=== PATIENT | female | born 1965 | race Caucasian/White ===

== ENCOUNTER 2016-11-20 12:42 | Observation (INO) ==
--- OUTSIDE RECORDS SUMMARY | 2016-11-20 13:05 | External Medical Summary | Clinical Summary ---
:1965 Author Organization [facility] [employer] [employer] Address [address] [address] Phone Allergies, Adverse Reactions, Alerts Allergy Name Reaction Description Start Date Severity Status Provider NKDA Critical Active Indigo Yonickieum DRUM DRIER OPERATOR NKDA Critical No Longer Indigo Yokum DRUM DRIER OPERATOR Active NKDA Critical Inactive Adrianna Elder Conditions or Problems Problem Name Problem Onset Status Entry Provider Comment Standard Annotate Code Date Date Description ABNORMAL 626.9 Resolved Maite Gutierrez Unspecified VAGINAL Laura ONEAL disorders of BLEEDING PhD menstruation and other abnormal bleeding from female genital tract DEPRESSION, 296.33 Active Joseph Pineda Major ACUTE, Farooq CORDERO depressive RECURRENT disorder, recurrent episode, severe degree, without mention of psychotic behavior SCABIES 133.0 Resolved Maite Gutierrez Scabies 06/23 Laura ONEAL PhD HYPERTENSION 401.9 Active Joseph Pineda Unspecified 05/24 Farooq DO essential hypertension FATIGUE 780.79 Resolved Indigo Other malaise 05/24 07/02 Yokum DRUM DRIER OPERATOR and fatigue SLEEP APNEA, 327.23 Active Joseph Pineda Obstructive OBSTRUCTIVE, 06/27 06/27 Farooq DO sleep apnea MILD (adult) (pediatric) OVERWEIGHT 278.02 Inactive Joseph Pineda Overweight 06/28 06/28 Farooq DO Obesity 278.00 Active Indigo Obesity, 06/28 10/18 Yokum DRUM DRIER OPERATOR unspecified OTH GENERAL V70.3 Resolved Maite Gutierrez Other general MEDICAL Laura ONEAL medical EXAMINATION PhD examination for ADMIN PURPOSES administrative purposes OTHER ABNORMAL 790.29 Resolved Maite C Other abnormal GLUCOSE 05/20 Laura ONEAL glucose PhD ACUTE 466.0 Resolved Maite C Acute BRONCHITIS 09/02 Laura ONEAL bronchitis PhD DEPENDENT 782.3 Resolved Indigo Edema EDEMA, LEGS, 10/29 10/18 Yokum DRUM DRIER OPERATOR BILATERAL HYPOKALEMIA, 276.8 Resolved Indigo Hypopotassemia MILD 10/29 07/02 Youm DRUM DRIER OPERATOR Diabetes, Type 250.00 Inactive Joseph Pineda Diabetes 2 06/27 06/27 Farooq DO mellitus without mention of complication, type II or unspecified type, not stated as uncontrolled Diabetes 250.02 Resolved Indigo Diabetes mellitus, type 06/27 DRUM DRIER OPERATOR mellitus II, without mention uncontrolled of complication, type II or unspecified type, uncontrolled Health V70.0 Active Joseph Pineda Routine general screening 01/17 01/17 Farooq DO medical examination at a health care facility Sinusitis, 461.1 Resolved Ismael Coyne Acute frontal frontal, acute 012/26 Amandeep sinusitis Laryngitis, 464.00 Resolved Ismael Coyne Acute acute 12/26 Amandeep laryngitis without mention of obstruction Binge eating 307.51 Active Joseph Pineda Bulimia nervosa disorder 08/15 08/15 Farooq DO Routine V72.31 Resolved Indigo Routine gynecological 12/14 07/02 Yo DRUM DRIER OPERATOR gynecological examination examination Postmenopausal 627.1 Resolved Indigo Postmenopausal bleeding 12/14 DRUM DRIER OPERATOR bleeding Screening for V76.51 Resolved Indigo Screening for malignant 12/26 07/02 Yokum DRUM DRIER OPERATOR malignant neoplasms of neoplasms of colon colon Insomnia, 307.42 Active Indigo 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 DRUM DRIER OPERATOR disorder of initiating or maintaining sleep Establish care V68.89 Resolved Indigo Encounters for or get 01/16 07/02 Yo DRUM DRIER OPERATOR other specified acquainted administrative visit purpose Weakness, left 342.90 Resolved Indigo Hemiplegia, side of body 06/20 10/18 Yokum DRUM DRIER OPERATOR unspecified, affecting unspecified side TIA 435.9 Active Indigo Unspecified 06/20 07/02 Yokum DRUM DRIER OPERATOR transient cerebral ischemia Knee pain, 719.46 Active Indigo Pain in joint bilateral 06/20 10/18 Yokum DRUM DRIER OPERATOR involving lower leg Bronchitis 490 Resolved Indigo Bronchitis, not 07/23 10/18 Yokum DRUM DRIER OPERATOR specified as acute or chronic Diabetes 357.2 Active Maliheh Polyneuropathy mellitus, 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GARMENT INSPECTOR 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y Knee pain, 719.46 Active Indigo Pain in joint right 06/20 10/18 Yokum DRUM DRIER OPERATOR involving lower leg Jesi 112.3 Active Indigo Candidiasis of intertrigo 10/09 10/18 Yokum DRUM DRIER OPERATOR skin and nails Hyperlipidemia 272.4 Active Anne Other and 12/24 12/24 Neil unspecified RMA hyperlipidemia Incontinence, 788.33 Active Indigo Mixed mixed, 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 DRUM DRIER OPERATOR incontinence urge/stress (female) (male) Female stress 625.6 Active Yury AnthonyCarlos Enrique Stress incontinence 01/03 01/03 Cy patel MD female ABNORMAL VAGINAL ICD-626.9 Inactive Maite Sanchez BLEEDING PhD SCABIES ICD-133.0 Inactive Maite Sanchez PhD FATIGUE ICD-780.79 Inactive Indigo Yokum DRUM DRIER OPERATOR OTH GENERAL ICD-V70.3 Inactive Maite Sanchez MEDICAL PhD EXAMINATION ADMIN PURPOSES OTHER ABNORMAL ICD-790.29 Inactive Maite Sanchez GLUCOSE PhD ACUTE BRONCHITIS ICD-466.0 Inactive Maite Matt Sanchez PhD DEPENDENT EDEMA, ICD-782.3 Inactive Indigo Yokum LEGS, BILATERAL DRUM DRIER OPERATOR HYPOKALEMIA, MILD ICD-276.8 Inactive Indigo Yokum DRUM DRIER OPERATOR Diabetes mellitus, ICD-250.02 Inactive Indigo Yokum type II, DRUM DRIER OPERATOR uncontrolled Sinusitis, ICD-461.1 Inactive Ismael Coyne frontal, acute Amandeep ONEAL Laryngitis, acute ICD-464.00 Inactive Ismael Coyne Amandeep ONEAL Routine ICD-V72.31 Inactive Indigo Yokum gynecological DRUM DRIER OPERATOR examination Postmenopausal ICD-627.1 Inactive Indigo Yokum 2015 bleeding DRUM DRIER OPERATOR Screening for ICD-V76.51 Inactive Indigo Yokum 2015 malignant DRUM DRIER OPERATOR neoplasms of colon Establish care or ICD-V68.89 Inactive Indigo Yokum get acquainted DRUM DRIER OPERATOR visit Weakness, left ICD-342.90 Inactive Indigo Yokum side of body DRUM DRIER OPERATOR Bronchitis ICD-490 Inactive Indigo Yokum DRUM DRIER OPERATOR Medication List Medication Instructions Start Stop Generic NDC Status Provider Patient Date Date Name Instruction METFORMIN 2 tablets METFORMIN 60643782172 No Indigo Active HCL 500 MG by mouth HCL Longer Yokum TB24 twice Active DRUM DRIER OPERATOR daily AMARYL 1 MG 1 tablet GLIMEPIRID 67482753411 No Indigo Active ORAL TABS orally E Longer Yokum twice Active DRUM DRIER OPERATOR daily NYSTATIN apply to NYSTATIN 42017666849 Active Indigo Active 160660 rash TID Yokum UNIT/GM PRN DRUM DRIER OPERATOR CREA TROKENDI XR 2 tab TOPIRAMATE 91324828375 Active Malihe Active 100 MG ORAL daily h [id number] Ziglar i GARMENT INSPECTOR METOPROLOL 1 tab po METOPROLOL 47716843327 Active Indigo Active TARTRATE 25 bid TARTRATE Yokum MG TABS DRUM DRIER OPERATOR AZITHROMYCI 2 po qd x AZITHROMYC 83234547068 No Jillin Active N 250 MG 1 day, IN Longer a TABS then 1 po Active Frazel qd x 4 l DRUM DRIER OPERATOR days PREDNISONE 2 pills PREDNISONE 56815978807 No Jillin Active 20 MG TAB daily x 4 Longer a days Active Frazel l DRUM DRIER OPERATOR PIOGLITAZON take one PIOGLITAZO 40425432343 Active Malihe Active E HCL 30 MG a day NE HCL h ORAL TABS Ziglar i GARMENT INSPECTOR JANUVIA 100 1 tablet SITAGLIPTI 38038481055 No Indigo Active MG TABS by mouth N Longer Yokum daily PHOSPHATE Active DRUM DRIER OPERATOR ATORVASTATI 1 pill by ATORVASTAT 85343702326 Active Indigo Active N CALCIUM mouth IN CALCIUM Yokum 10 MG TABS nightly, DRUM DRIER OPERATOR for cholester ol ASPIRIN 81 1 po qd ASPIRIN 73660635961 Active Indigo Active MG ORAL Yokum TABS DRUM DRIER OPERATOR NITROFURANT One NITROFURAN 72050029706 No Indigo Active OIN MONOHYD capsule TOIN Longer Yokum MACRO 100 BID for MONOHYD Active DRUM DRIER OPERATOR MG CAPS UTI MACRO TRAMADOL 1/2 po TRAMADOL 41766202751 No Jillin Active HCL 50 MG tid with HCL Longer a TABS ES Active Frazel Tylenol l DRUM DRIER OPERATOR prn pain VYVANSE 20 1 tablet LISDEXAMFE 28428581310 No Jillin Active MG ORAL daily for TAMINE Longer a CAPS binge DIMESYLATE Active Frazel eating l DRUM DRIER OPERATOR disorder LASIX 20 MG 2 tablet FUROSEMIDE 61067744009 Active Indigo Active TAB by mouth Yokum daily DRUM DRIER OPERATOR CELEBREX 1 tablet CELECOXIB 39767469055 Active Indigo Active 200 MG CAPS by mouth Yokum daily DRUM DRIER OPERATOR with meals PREDNISONE 2 tablets PREDNISONE 49290571377 No Joseph Active 20 MG TAB today, Longer W Farooq then 1 Active DO tablet days 2-4 DIFLUCAN 1 tablet FLUCONAZOL 59619516384 No Joseph Active 100 MG TAB by mouth E Longer W [place] daily x 3 Active DO days DIFLUCAN 1 tablet FLUCONAZOL 61898657367 No Joseph Active 100 MG TABS by mouth E Longer W [place] every Active DO other day for 2 doses ZOFRAN 4 MG 1 po q6hr ONDANSETRO 17049723140 Active Joseph Active TABS PRN N HCL W Farooq Nausea DO PREDNISONE 2 tabs PREDNISONE 58502368223 No Joseph Active 20 MG TAB daily for Longer W [place] 3 days, 1 Active DO tab daily for 3 days, 1/2 tab daily for 2 days AMOXICILLIN 2 po BID AMOXICILLI 53940213914 No Maite C Active 500 MG CAPS x 10 days N Longer Madril Active PhD LISINOPRIL 1 tablet LISINOPRIL 33950592141 No Maite C Active 20 MG TABS by mouth Longer Madril daily Active PhD POTASSIUM 2 capsule POTASSIUM 84821358195 No Joseph Active CHLORIDE CR by mouth CHLORIDE Longer W [place]oo[place] 10 MEQ CPCR daily Active DO SPIRONOLACT 1 tablet SPIRONOLAC 61280366560 No Joseph Active ONE 25 MG by mouth TONE Longer W [place] TAB daily Active DO METFORMIN 1 tablet METFORMIN 45443233365 No Joseph Active HCL 500 MG by mouth HCL Longer W [place] TABS twice Active DO daily AMARYL 1 MG 1 tab GLIMEPIRID 09301254488 No Joseph Active TABS twice E Longer W [place] daily Active DO PHENTERMINE 1 po q am PHENTERMIN 56595247105 No Joseph Active HCL 37.5 MG for wt. E HCL Longer W [place] TABS loss Active DO PROMETHAZIN 1 tab by PROMETHAZI 39100552040 No Joseph Active E HCL 25 MG mouth NE HCL Longer W [place] TABS every 6 Active DO hours as needed CIPROFLOXAC Take one CIPROFLOXA 43265449826 No Joseph Active IN HCL 500 (1) DELORES HCL Longer W Farooq MG TABS tablet by Active DO mouth twice a day ABILIFY 5 one p.o. ARIPIPRAZO 44982361753 No Joseph Active MG TABS q. day LE Longer W Farooq Active DO HYDROCHLORO 2 tabs HYDROCHLOR 33633685601 No Joseph Active THIAZIDE 25 every OTHIAZIDE Longer W Farooq MG TABS morning Active DO ABILIFY 2 1 po q hs ARIPIPRAZO 72600971629 No Joseph Active MG TABS for major LE Longer W [place]ooq depressio Active DO n ADIPEX-P 1/2 tab PHENTERMIN 90036925414 No Casey Active 37.5 MG po q am E HCL Longer Leonarda CAPS for Active PA weight loss CIPRO 500 1 tablet CIPROFLOXA 27062308355 No Casey Active MG TAB by mouth DELORES HCL Longer [place] twice Active PA daily NECON 1/35 1 po NORETHINDR 80686692626 No Casey Active (28) 1-35 daily ONE-ETH Longer [place] MG-MCG TABS ESTRADIOL Active PA TRAMADOL 1 po tid TRAMADOL 91402245414 No Casey Active HCL 50 MG with ES HCL Longer [place] TABS Tylenol Active PA FLUCONAZOLE one p.o. FLUCONAZOL 44369642176 No Casey Active 100 MG TABS q. day 2 E Longer [place] days Active PA POTASSIUM 1 capsule POTASSIUM 43307778386 No Casey Active CHLORIDE CR by mouth CHLORIDE Longer 10 MEQ CPCR daily Active PA IMIPRAMINE Take 6 IMIPRAMINE 21968366241 Active Indigo Active HCL 50 MG tablets HCL Yokum TABS by mouth DRUM DRIER OPERATOR at bedtime DIFLUCAN 1 tablet FLUCONAZOL 78187354087 No Joseph Active 100 MG TAB by mouth E Longer W [place] daily Active DO VERAPAMIL 2 po bid VERAPAMIL 10517155483 Active Indigo Active HCL CR 120 HCL Yokum MG TAB CR DRUM DRIER OPERATOR PERMETHRIN apply PERMETHRIN 20407443986 No Joseph Active 5 % CREA neck to Longer W [place] toes Active DO tonight and then rinse off in morning. repeat at 7 days SEROQUEL XR one p.o. QUETIAPINE 85934082754 No Joseph Active 50 MG q. FUMARATE Longer W [place] [id number] evening Active DO TRAMADOL 1-2 TRAMADOL 43990383603 No Joseph Active HCL 50 MG tablets HCL Longer W [place] TABS every 6-8 Active DO hours as needed for pain ALPRAZOLAM one p.o. ALPRAZOLAM 86129693697 Active Indigo Active 3 MG q.h.s. Yokum [id number] DRUM DRIER OPERATOR ALPRAZOLAM Take 1 ALPRAZOLAM 31520790537 No Joseph Active XR tablet by [id number] Longer W [place] [id number] mouth at Active DO bedtime DIFLUCAN 1 tablet FLUCONAZOL 86615231183 No Joseph Active 100 MG TAB by mouth E Longer W [place] daily Active DO AMBIEN 10 1 tab by ZOLPIDEM 04499511837 Active Indigo Active MG TAB mouth at TARTRATE Yokum bedtime DRUM DRIER OPERATOR as needed for sleep DIFLUCAN 100 1 tablet DIFLUCAN 873846 FLUCONAZOLE Inactive MG TAB by mouth 100 MG TAB daily ALPRAZOLAM Take 1 ALPRAZOLAM ALPRAZOLAM Inactive XR [id number] tablet by XR [id number] mouth at [id number] bedtime TRAMADOL HCL 1-2 TRAMADOL 663294 TRAMADOL HCL Inactive 50 MG TABS tablets HCL 50 MG every 6-8 TABS hours as needed for pain SEROQUEL XR one p.o. SEROQUEL XR QUETIAPINE Inactive 50 MG q. 50 MG FUMARATE [id number] evening [id number] PERMETHRIN 5 apply PERMETHRIN 030982 PERMETHRIN Inactive % CREA neck to 5 % CREA toes tonight and then rinse off in morning. repeat at 7 days DIFLUCAN 100 1 tablet DIFLUCAN 001134 FLUCONAZOLE Inactive MG TAB by mouth 100 MG TAB daily POTASSIUM 1 capsule POTASSIUM POTASSIUM Inactive CHLORIDE CR by mouth CHLORIDE CR CHLORIDE 10 MEQ CPCR daily 10 MEQ CPCR FLUCONAZOLE one p.o. FLUCONAZOLE 414999 FLUCONAZOLE Inactive 100 MG TABS q. day 2 100 MG TABS days TRAMADOL HCL 1 po tid TRAMADOL 410785 TRAMADOL HCL Inactive 50 MG TABS with ES HCL 50 MG Tylenol TABS NECON 1/35 1 po NECON 1/35 NORETHINDRONE- Inactive (28) 1-35 daily (28) 1-35 ETH ESTRADIOL MG-MCG TABS MG-MCG TABS CIPRO 500 MG 1 tablet CIPRO 500 520330 CIPROFLOXACIN Inactive TAB by mouth MG TAB HCL twice daily ADIPEX-P 1/2 tab ADIPEX-P 612368 PHENTERMINE Inactive 37.5 MG CAPS po q am 37.5 MG HCL for CAPS weight loss ABILIFY 2 MG 1 po q hs ABILIFY 2 717935 ARIPIPRAZOLE Inactive TABS for major MG TABS depressio n HYDROCHLOROT 2 tabs HYDROCHLORO 039727 HYDROCHLOROTHI Inactive HIAZIDE 25 every THIAZIDE 25 AZIDE MG TABS morning MG TABS ABILIFY 5 MG one p.o. ABILIFY 5 221323 ARIPIPRAZOLE Inactive TABS q. day MG TABS CIPROFLOXACI Take one CIPROFLOXAC 842492 CIPROFLOXACIN Inactive N HCL 500 MG (1) IN HCL 500 HCL TABS tablet by MG TABS mouth twice a day PROMETHAZINE 1 tab by PROMETHAZIN 408839 PROMETHAZINE Inactive HCL 25 MG mouth E HCL 25 MG HCL TABS every 6 TABS hours as needed PHENTERMINE 1 po q am PHENTERMINE 010804 PHENTERMINE Inactive HCL 37.5 MG for wt. HCL 37.5 MG HCL TABS loss TABS AMARYL 1 MG 1 tab AMARYL 1 MG 162454 GLIMEPIRIDE Inactive TABS twice TABS daily METFORMIN 1 tablet METFORMIN 933202 METFORMIN HCL Inactive HCL 500 MG by mouth HCL 500 MG TABS twice TABS daily SPIRONOLACTO 1 tablet SPIRONOLACT 075182 SPIRONOLACTONE Inactive NE 25 MG TAB by mouth ONE 25 MG daily TAB POTASSIUM 2 capsule POTASSIUM POTASSIUM Inactive CHLORIDE CR by mouth CHLORIDE CR CHLORIDE 10 MEQ CPCR daily 10 MEQ CPCR LISINOPRIL 1 tablet LISINOPRIL 521965 LISINOPRIL Inactive 20 MG TABS by mouth 20 MG TABS daily DIFLUCAN 100 1 tablet DIFLUCAN 19760111 FLUCONAZOLE Inactive MG TABS by mouth 100 MG TABS every other day for 2 doses DIFLUCAN 100 1 tablet DIFLUCAN 209417 FLUCONAZOLE Inactive MG TAB by mouth 100 MG TAB daily x 3 days PREDNISONE 2 tablets PREDNISONE 584283 PREDNISONE Inactive 20 MG TAB today, 20 MG TAB then 1 tablet days 2-4 VYVANSE 20 1 tablet VYVANSE 20 LISDEXAMFETAMI Inactive MG ORAL CAPS daily for MG ORAL NE DIMESYLATE binge CAPS eating disorder TRAMADOL HCL 1/2 po TRAMADOL 696667 TRAMADOL HCL Inactive 50 MG TABS tid with HCL 50 MG ES TABS Tylenol prn pain JANUVIA 100 1 tablet JANUVIA 100 SITAGLIPTIN Inactive MG TABS by mouth MG TABS PHOSPHATE daily AMARYL 1 MG 1 tablet AMARYL 1 MG 397905 GLIMEPIRIDE Inactive ORAL TABS orally ORAL TABS twice daily METFORMIN 2 tablets METFORMIN METFORMIN HCL Inactive HCL 500 MG by mouth HCL 500 MG TB24 twice TB24 daily AMOXICILLIN 2 po BID AMOXICILLIN 768675 AMOXICILLIN Inactive 500 MG CAPS x 10 days 500 MG CAPS PREDNISONE 2 tabs PREDNISONE 552988 PREDNISONE Inactive 20 MG TAB daily for 20 MG TAB 3 days, 1 tab daily for 3 days, 1/2 tab daily for 2 days NITROFURANTO One NITROFURANT 9243124 NITROFURANTOIN Inactive IN MONOHYD capsule OIN MONOHYD MONOHYD MACRO MACRO 100 MG BID for MACRO 100 CAPS UTI MG CAPS PREDNISONE 2 pills PREDNISONE 337309 PREDNISONE Inactive 20 MG TAB daily x 4 20 MG TAB days AZITHROMYCIN 2 po qd x AZITHROMYCI 8643031 AZITHROMYCIN Inactive 250 MG TABS 1 day, N 250 MG then 1 po TABS qd x 4 days Advance Directives Directive Description Start Date PERMISSION TO SHARE Vital Signs Date Name Value Unit Range Description blood pressure, diastolic - 8462-4 65 mm[Hg] BP nunez blood pressure, systolic - 8480-6 115 mm[Hg] BP sys pulse rate E&M - 8867-4 85 /min Heart rate temperature E&M 97.5 [degF] Body temperature weight E&M - 3141-9 245.5 [lb_av] Weight Measured blood pressure, diastolic - 8462-4 65 mm[Hg] BP nunez blood pressure, systolic - 8480-6 107 mm[Hg] BP sys pulse rate E&M - 8867-4 81 /min Heart rate temperature E&M 98.3 [degF] Body temperature weight E&M - 3141-9 251 [lb_av] Weight Measured blood pressure, diastolic - 8462-4 63 mm[Hg] BP nunez blood pressure, systolic - 8480-6 113 mm[Hg] BP sys pulse rate E&M - 8867-4 87 /min Heart rate temperature E&M 96.7 [degF] Body temperature weight E&M - 3141-9 245.5 [lb_av] Weight Measured blood pressure, diastolic - 8462-4 80 mm[Hg] BP nunez blood pressure, systolic - 8480-6 128 mm[Hg] BP sys height E&M - 8302-2 62 [in_us] Bdy height pulse rate E&M - 8867-4 86 /min Heart rate weight E&M - 3141-9 246 [lb_av] Weight Measured blood pressure, diastolic - 8462-4 60 mm[Hg] BP nunez blood pressure, systolic - 8480-6 126 mm[Hg] BP sys pulse rate E&M - 8867-4 91 /min Heart rate temperature E&M 98.6 [degF] Body temperature weight E&M - 3141-9 244 [lb_av] Weight Measured blood pressure, diastolic - 8462-4 80 mm[Hg] BP nunez blood pressure, systolic - 8480-6 122 mm[Hg] BP sys height E&M - 8302-2 62 [in_us] Bdy height pulse rate E&M - 8867-4 96 /min Heart rate weight E&M - 3141-9 244 [lb_av] Weight Measured blood pressure, diastolic - 8462-4 82 mm[Hg] BP nunez blood pressure, systolic - 8480-6 126 mm[Hg] BP sys pulse rate E&M - 8867-4 96 /min Heart rate temperature E&M 97.7 [degF] Body temperature weight E&M - 3141-9 247 [lb_av] Weight Measured Diagnostic Results Date Name Value Unit Range Description Lab Report: Basic Metabolic Panel, HGBA1C - Chemistry sodium, serum 140 mmol/L 820-021 8156/06/03 potassium, serum 3.9 mmol/L 3.5-5.2 chloride, serum 105 mmol/L 98-107 carbon dioxide, venous blood 29.4 mmol/L 21.0-32.0 blood glucose 124 mg/dL 65-110 calcium, serum 8.9 mg/dL 8.5-10.1 urea nitrogen, blood 14 mg/dL 7-18 creatinine, serum 0.88 mg/dL 0.55-1.30 hemoglobin A1C, blood, as % of total hemoglobin 5.7 % 4.3-6.0 Lab Report: CBC W/DIFF, B-Type Natriuretic Peptide - Hematology leukocyte count, blood 6.1 10^3/MM^3 10*3/mm3 4.6-10.2 neutrophils as percent of blood 55.3 % 42.2-75.2 leukocytes monocytes as percent of blood 7.5 % 1.7-9.3 leukocytes lymphocytes as percent of blood 30.6 % 20.5-51.1 leukocytes erythrocyte (RBC) count 4.40 10^6/MM^3 10*6/mm3 4.04-5.48 hemoglobin, blood 13.9 g/dL 12.0-16.0 hematocrit, blood 40.1 % 36.0-46.0 mean corpuscular volume, RBC 91 fL 80-97 mean corpuscular hemoglobin, RBC 31.5 pg 27.0-31.2 mean corpuscular hemoglobin 34.6 G/DL % 31.8-35.4 concentration, RBC red blood cell distribution width 14.7 % 11.6-14.8 platelet count 214 10^3/MM^3 10*3/mm3 142-424 Lab Report: CBC, HGBA1C - Chemistry hemoglobin A1C, blood, as % of total hemoglobin 6.8 % 4.3-6.0 Lab Report: CBC, HGBA1C - Hematology leukocyte count, blood 6.0 10^3/MM^3 10*3/mm3 4.6-10.2 erythrocyte (RBC) count 4.36 10^6/MM^3 10*6/mm3 4.04-5.48 hemoglobin, blood 13.6 g/dL 12.0-16.0 hematocrit, blood 39.7 % 36.0-46.0 mean corpuscular volume, RBC 91 fL 80-97 mean corpuscular hemoglobin, RBC 31.1 pg 27.0-31.2 mean corpuscular hemoglobin 34.1 G/DL % 31.8-35.4 concentration, RBC red blood cell distribution width 14.2 % 11.6-14.8 platelet count 198 10^3/MM^3 10*3/mm3 142-424 Lab Report: Comp. Metabolic Panel, Lipid Panel - Chemistry sodium, serum 136 mmol/L 344-522 3671/01/04 carbon dioxide, venous blood 27.0 mmol/L 21.0-32.0 potassium, serum 4.6 mmol/L 3.5-5.2 chloride, serum 98 mmol/L 98-107 blood glucose 174 mg/dL 65-110 urea nitrogen, blood 12 mg/dL 7-18 creatinine, serum 0.78 mg/dL 0.55-1.30 alanine aminotransferase (SGPT), serum 65 U/L 12-78 aspartate aminotransferase (SGOT), serum 34 U/L 15-37 calcium, serum 8.9 mg/dL 8.5-10.1 bilirubin, serum, total 0.40 mg/dL 0.00-1.00 cholesterol, serum 219 mg/dL 797-927 1604/01/04 triglyceride, serum, fasting 214 mg/dL 30-200 HDL cholesterol, serum 39 mg/dL 32-96 LDL cholesterol, serum 137 mg/dL 0-130 Lab Report: Lipid Panel - Chemistry cholesterol, serum 157 mg/dL 405-397 3887/08/22 triglyceride, serum, fasting 215 mg/dL 30-200 HDL cholesterol, serum 43 mg/dL 32-96 LDL cholesterol, serum 71 mg/dL 0-130 Office Visit: CN-incontinence - Chemistry RBC, urine, dipstick negative Office Visit: CN-incontinence - Urinalysis ketones, urine, by test strip negative bilirubin, urine negative glucose, urine, semiquantitative negative urine color yellow appearance, urine clear leukocyte esterase, urine, by dipstick negative nitrite, urine, semiquantitative negative urobilinogen, urine, semiquantitative (dipstick) negative protein, urine, semiquantitative (dipstick) negative Office Visit: Diabetes Visit - Chemistry cholesterol, target level 200 mg/dL triglyceride, target level 200 mg/dL HDL cholesterol, serum, target level 35 mg/dL LDL target level 100 mg/dL home glucose monitor utilized Yes cholesterol, target level 200 mg/dL triglyceride, target level 200 mg/dL HDL cholesterol, serum, target level 35 mg/dL LDL target level 100 mg/dL Encounters Code Encounter Date Provider Facility CPT-07194 Level 4 New Patient Yury Benoit MD [facility] 15:17:12 CDT CPT-04773 Level 3 Est. Patient [facility] - 13:37:46 CDT [place] CPT-21488 Level 4 Est. Patient [facility] - 10:01:06 CDT [place] CPT-95114 Level 3 Est. Patient [facility] 08:58:07 CDT GARMENT INSPECTOR CPT-42547 Level 3 Est. [facility] CPT-79334 Level 4 Est. Patient [facility] 17:29:53 [place] GARMENT INSPECTOR CPT-25628 Level 4 Est. Patient [facility] 09:51:54 [place] CPT-39878 Level 3 Est. Patient [facility] 18:59:38 CDT CPT-58639 Level 3 Est. Patient Joseph Pineda [facility] 14:42:12 CDT -[facility] CPT-77389 Level 3 Est. Patient Joseph Pineda [facility] 22:18:20 CDT -[facility] CPT-14727 Level 3 Est. Patient Joseph Edwin [facility] 16:46:04 CDT -[facility] CPT-45496 Level 3 Est. Patient Joseph Edwin [facility] 15:39:53 CDT -[facility] CPT-40536 Level 3 Est. Patient Maite Sanchez MD [facility] 13:33:34 CDT -[facility] CPT-23368 Level 3 Est. Patient Joseph Pineda [facility] 11:37:08 CDT -[facility] CPT-52467 Level 3 Est. Patient Joseph Pineda [facility] 17:13:29 GOPHER[place] -[facility] CPT-85895 Level 3 Est. Patient Joseph Pineda [facility] 18:42:44 CDT CPT-62529 Level 3 Est. Patient Joseph Edwin [facility] 16:25:39 CDT CPT-63328 Level 3 Est. Patient Casey Brower [facility] 09:52:45 CDT -[facility] CPT-57849 Level 3 Est. Patient Joseph Pineda [facility] 11:03:29 GOPHERMAN -[facility] CPT-05824 Level 3 Est. Patient Joseph Edwin [facility] 11:03:08 GOPHERMAN -[facility] CPT-78820 Level 3 Est. Patient Joseph Edwin [facility] 14:33:31 CDT -[facility] CPT-53657 Level 3 Est. Patient Joseph Edwin [facility] 17:05:02 GOPHERMAN -[facility] CPT-54803 Level 3 Est. Patient Joseph Edwin [facility] 17:48:06 GOP[place] -[facility] CPT-48425 Level 3 Est. Patient Joseph Edwin [facility] 14:59:22 GOPHER[place] -[facility] CPT-98179 Level 3 Est. Patient Joseph Edwin [facility] - 21:45:56 GOPHERMAN [place] [facility] CPT-96616 Level 3 Est. Patient Joseph Edwin [facility] 21:29:50 CDT -[facility] CPT-42929 Level 3 Est. Patient Muddy Edwin [facility] 12:41:09 CDT -[facility] Procedures Code Procedure Name Date Entry Date Standard Description CPT-32444 Postop F/U Visit 18:20:10 CDT CPT-A4351 Coloplast Female Cath 09:37:10 CDT CPT-49733 Urine Dip (Floor Use Only) 15:17:13 CDT CPT-58837 Dil F ureth int 15:17:13 CDT CPT-16552 Venipuncture Draw Fee 09:19:08 CDT CPT-68900 Lipid - LAB USE ONLY 09:19:07 CDT CPT-JTINJ Asp/Joint Injection 09:26:49 CDT CPT-97801 Chest 2V Frontal and Lat 14:47:43 CDT CPT-JTINJ Asp/Joint Injection 09:51:53 GOPHERMAN CPT-OV Office Visit 17:39:05 CDT CPT-OV Office Visit 15:19:50 CDT CPT-82918 Sono transvag pelvis non OB uterus ovaries cervix 18:04:34 CDT CPT-57961 Venipuncture Draw Fee 08:55:49 GOPHERMAN
--- OUTSIDE RECORDS SUMMARY | 2016-11-20 13:06 | External Medical Summary | Clinical Summary ---
:1965 Author Organization [facility] Address [address] [address] Phone Allergies, Adverse Reactions, Alerts Allergy Name Reaction Description Start Date Severity Status Provider VERSED States jsut about Critical Active Gloria Saavedra C2 TACTICAL ANALYSIS TECHNICIAN killed her NKDA Critical Active Indigo Yokum HISTOLOGY TECHNICIAN NKDA Critical No Longer Indigo Yokum HISTOLOGY TECHNICIAN Active NKDA Critical Inactive Adrianna Elder Conditions or Problems Problem Name Problem Onset Status Entry Provider Comment Standard Annotate Code Date Date Description ABNORMAL 626.9 Resolved Maite Gutierrez Unspecified VAGINAL Laura ONEAL disorders of BLEEDING PhD menstruation and other abnormal bleeding from female genital tract DEPRESSION, 296.33 Active Joseph Pineda Major depressive ACUTE, Farooq DO disorder, RECURRENT recurrent episode, severe degree, without mention of psychotic behavior SCABIES 133.0 Resolved Maite Gutierrez Scabies 06/23 Laura ONEAL PhD HYPERTENSION 401.9 Active Joseph Pineda Unspecified 05/24 Farooq DO essential hypertension FATIGUE 780.79 Resolved Indigo Other malaise 05/24 07/02 Yokum HISTOLOGY TECHNICIAN and fatigue SLEEP APNEA, 327.23 Active Joseph Pineda Obstructive OBSTRUCTIVE, 06/27 06/27 Farooq DO sleep apnea MILD (adult) (pediatric) OVERWEIGHT 278.02 Inactive Joseph Pineda Overweight 06/28 06/28 Farooq DO Obesity 278.00 Active Indigo Obesity, 06/28 10/18 Yokum HISTOLOGY TECHNICIAN unspecified OTH GENERAL V70.3 Resolved Maite Gutierrez Other general MEDICAL Laura ONEAL medical EXAMINATION PhD examination for ADMIN administrative PURPOSES purposes OTHER 790.29 Resolved Maite C Other abnormal ABNORMAL 05/20 Laura ONEAL glucose GLUCOSE PhD ACUTE 466.0 Resolved Maite Gutierrez Acute bronchitis BRONCHITIS 09/02 Laura ONEAL PhD DEPENDENT 782.3 Resolved Indigo Edema EDEMA, LEGS, 10/29 10/18 Yokum HISTOLOGY TECHNICIAN BILATERAL HYPOKALEMIA, 276.8 Resolved Indigo Hypopotassemia MILD 10/29 07/02 Yokum HISTOLOGY TECHNICIAN Diabetes, 250.00 Inactive Joseph Pineda Diabetes Type 2 06/27 06/27 Farooq DO mellitus without mention of complication, type II or unspecified type, not stated as uncontrolled Diabetes 250.02 Resolved Indigo Diabetes mellitus, 06/27 10/18 Yokum HISTOLOGY TECHNICIAN mellitus without type II, mention of uncontrolled complication, type II or unspecified type, uncontrolled Health V70.0 Active Joseph Pineda Routine general screening 01/17 01/17 Farooq DO medical examination at a health care facility Sinusitis, 461.1 Resolved Ismael Coyne Acute frontal frontal, 12/26 [place] sinusitis acute MD Laryngitis, 464.00 Resolved Ismael Coyne Acute laryngitis acute 12/26 [place] without mention MD of obstruction Binge eating 307.51 Active Joseph Pineda Bulimia nervosa disorder 08/15 08/15 Farooq DO Routine V72.31 Resolved Indigo Routine gynecological 12/14 07/02 Yokum HISTOLOGY TECHNICIAN gynecological examination examination Postmenopausa 627.1 Resolved Indigo Postmenopausal l bleeding 12/14 07/02 Yokum HISTOLOGY TECHNICIAN bleeding Screening for V76.51 Resolved Indigo Screening for malignant 12/26 07/02 Yokum HISTOLOGY TECHNICIAN malignant neoplasms of neoplasms of colon colon Insomnia, 307.42 Active Indigo 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 HISTOLOGY TECHNICIAN disorder of initiating or maintaining sleep Establish V68.89 Resolved Indigo Encounters for care or get 01/16 07/02 Yokum HISTOLOGY TECHNICIAN other specified acquainted administrative visit purpose Weakness, 342.90 Resolved Indigo Hemiplegia, left side of 06/20 10/18 Yokum HISTOLOGY TECHNICIAN unspecified, body affecting unspecified side TIA 435.9 Active Indigo Unspecified 06/20 07/02 Yokum HISTOLOGY TECHNICIAN transient cerebral ischemia Knee pain, 719.46 Active Indigo Pain in joint bilateral 06/20 10/18 Yokum HISTOLOGY TECHNICIAN involving lower leg Bronchitis 490 Resolved Indigo Bronchitis, not 07/23 10/18 Yokum HISTOLOGY TECHNICIAN specified as acute or chronic Diabetes 357.2 Active Maliheh Polyneuropathy mellitus, 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 [employer] 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 y Knee pain, 719.46 Active Indigo Pain in joint right 06/20 10/18 Yokum HISTOLOGY TECHNICIAN involving lower leg Jesi 112.3 Active Indigo Candidiasis of intertrigo 10/09 10/18 Yokum HISTOLOGY TECHNICIAN skin and nails Hyperlipidemi 272.4 Active Anne Other and a 12/24 12/24 Neil unspecified RMA hyperlipidemia Incontinence, 788.33 Active Indigo Mixed mixed, 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 HISTOLOGY TECHNICIAN incontinence urge/stress (female) (male) Female stress 625.6 Active Yury Monaco Stress incontinence 01/03 01/03 Cy patel MD female Vaginal odor 623.8 Active Gloria Other specified 05/28 05/28 Naff C2 TACTICAL ANALYSIS TECHNICIAN noninflammatory disorders of vagina Urinary tract 599.0 Active Indigo Urinary tract infection 05/28 05/28 Yok HISTOLOGY TECHNICIAN infection, site not specified Urine odor 791.9 Active Indigo Other 05/28 06/26 Yokum HISTOLOGY TECHNICIAN nonspecific findings on examination of urine ABNORMAL VAGINAL ICD-626.9 Inactive Maite Sanchez BLEEDING PhD SCABIES ICD-133.0 Inactive Maite Sanchez PhD FATIGUE ICD-780.79 Inactive Indigo Yokum HISTOLOGY TECHNICIAN OTH GENERAL ICD-V70.3 Inactive Maite Sanchez MEDICAL PhD EXAMINATION ADMIN PURPOSES OTHER ABNORMAL ICD-790.29 Inactive Maite Sanchez GLUCOSE MD PhD ACUTE BRONCHITIS ICD-466.0 Inactive Maite Sanchez PhD DEPENDENT EDEMA, ICD-782.3 Inactive Indigo Yokum LEGS, BILATERAL HISTOLOGY TECHNICIAN HYPOKALEMIA, MILD ICD-276.8 Inactive Indigo Yokum HISTOLOGY TECHNICIAN Diabetes mellitus, ICD-250.02 Inactive Indigo Yokum type II, HISTOLOGY TECHNICIAN uncontrolled Sinusitis, ICD-461.1 Inactive Ismael Coyne frontal, acute Amandeep ONEAL Laryngitis, acute ICD-464.00 Inactive Ismael Coyne Amandeep ONEAL Routine ICD-V72.31 Inactive Indigo Yokum gynecological HISTOLOGY TECHNICIAN examination Postmenopausal ICD-627.1 Inactive Indigo Yokum 2015 bleeding HISTOLOGY TECHNICIAN Screening for ICD-V76.51 Inactive Indigo Yokum 2015 malignant HISTOLOGY TECHNICIAN neoplasms of colon Establish care or ICD-V68.89 Inactive Indigo Yokum get acquainted HISTOLOGY TECHNICIAN visit Weakness, left ICD-342.90 Inactive Indigo Yokum side of body HISTOLOGY TECHNICIAN Bronchitis ICD-490 Inactive Indigo Yokum HISTOLOGY TECHNICIAN Medication List Medication Instructions Start Stop Generic NDC Status Provider Patient Date Date Name Instruction REGINALDRE 5 1 tablet SOLIFENACIN 95543522210 Active J Carlos Enrique Active MG TABS daily SUCCINATE Cy ONEAL CIPRO 250 MG 1 tablet 2 CIPROFLOXACIN 95795328026 No Indigo Active TAB by mouth 0 HCL Longer Yokum twice 1 Active HISTOLOGY TECHNICIAN daily 7 METFORMIN 2 tablets 2 METFORMIN HCL 63547831165 No Indigo Active HCL 500 MG by mouth 0 Longer Yokum TB24 twice 1 Active HISTOLOGY TECHNICIAN daily 2 AMARYL 1 MG 1 tablet 2 GLIMEPIRIDE 56490715760 No Indigo Active ORAL TABS orally 0 Longer Yokum twice 1 Active HISTOLOGY TECHNICIAN daily 2 NYSTATIN apply to NYSTATIN 15251292519 Active Indigo Active 579569 rash TID Yokum UNIT/GM CREA PRN HISTOLOGY TECHNICIAN TROKENDI XR 2 tab TOPIRAMATE 15220935317 Active Maliheh Active 100 MG ORAL daily Ziglari [id number] [employer] METOPROLOL 1 tab po METOPROLOL 91320699102 Active Indigo Active TARTRATE 25 bid TARTRATE Yokum MG TABS HISTOLOGY TECHNICIAN AZITHROMYCIN 2 po qd x 2 AZITHROMYCIN 03909390753 No Jillina Active 250 MG TABS 1 day, 0 Longer Frazell then 1 po 1 Active HISTOLOGY TECHNICIAN qd x 4 6 days / 0 3 / 2 6 PREDNISONE 2 pills 2 PREDNISONE 96434560019 No Jillina Active 20 MG TAB daily x 4 0 Longer [place] days 1 Active HISTOLOGY TECHNICIAN 6 / 0 3 / 2 5 PIOGLITAZONE take one a PIOGLITAZONE 21609314410 Active Maliheh Active HCL 30 MG day HCL Ziglari ORAL TABS [employer] JANUVIA 100 1 tablet 2 SITAGLIPTIN 60556029732 No Indigo Active MG TABS by mouth 0 PHOSPHATE Longer Yokum daily 1 Active HISTOLOGY TECHNICIAN 6 / 0 2 / 1 6 ATORVASTATIN 1 pill by ATORVASTATIN 50471661247 Active Indigo Active CALCIUM 10 mouth CALCIUM Yokum MG TABS nightly, HISTOLOGY TECHNICIAN for cholestero l ASPIRIN 81 1 po qd ASPIRIN 66556221431 Active Indigo Active MG ORAL TABS Yokum HISTOLOGY TECHNICIAN NITROFURANTO One 2 NITROFURANTOIN 56913196930 No Indigo Active IN MONOHYD capsule 0 MONOHYD MACRO Longer Yokum MACRO 100 MG BID for 1 Active HISTOLOGY TECHNICIAN CAPS UTI 6 / 0 / 3 TRAMADOL HCL 1/2 po tid 2 TRAMADOL HCL 49616283194 No Jillina Active 50 MG TABS with ES 0 Longer [place] Tylenol 1 Active HISTOLOGY TECHNICIAN prn pain 5 / 0 2 VYVANSE 20 1 tablet 2 LISDEXAMFETAMIN 01544018375 No Jillina Active MG ORAL CAPS daily for 0 E DIMESYLATE Longer [place]ell binge 1 Active HISTOLOGY TECHNICIAN eating 5 disorder / 0 2 LASIX 20 MG 2 tablet FUROSEMIDE 44671343334 Active Indigo Active TAB by mouth Yokum daily HISTOLOGY TECHNICIAN CELEBREX 200 1 tablet CELECOXIB 51218929677 Active Indigo Active MG CAPS by mouth Yokum daily with HISTOLOGY TECHNICIAN meals PREDNISONE 2 tablets 2 PREDNISONE 40309093100 No Joseph W Active 20 MG TAB today, 0 Longer Farooq DO then 1 1 Active tablet 5 days 2-4 / 0 4 / 1 3 DIFLUCAN 100 1 tablet 2 FLUCONAZOLE 86908353756 No Joseph W Active MG TAB by mouth 0 Longer Farooq DO daily x 3 1 Active days 5 / 0 4 / 1 3 DIFLUCAN 100 1 tablet 2 FLUCONAZOLE 91667035873 No Joseph W Active MG TABS by mouth 0 Longer Farooq DO every 1 Active other day 5 for 2 / doses 0 1 / 2 3 ZOFRAN 4 MG 1 po q6hr ONDANSETRON HCL 26209449876 Active Joseph W Active TABS PRN Nausea Farooq DO PREDNISONE 2 tabs 2 PREDNISONE 92408149354 No Joseph W Active 20 MG TAB daily for 0 Longer Farooq DO 3 days, 1 1 Active tab daily 4 for 3 / days, 1/2 1 tab daily 0 for 2 days / 2 5 AMOXICILLIN 2 po BID x 2 AMOXICILLIN 25838100934 No Maite C Active 500 MG CAPS 10 days 0 Longer Laura ONEAL 1 Active PhD 0 / 2 0 LISINOPRIL 1 tablet 2 LISINOPRIL 14991500316 No Maite C Active 20 MG TABS by mouth 0 Longer Kimberlyl MD daily 1 Active PhD 0 / 0 POTASSIUM 2 capsule 2 POTASSIUM 92364737981 No Joseph W Active CHLORIDE CR by mouth 0 CHLORIDE Longer Farooq DO 10 MEQ CPCR daily 1 Active 4 / 0 8 / 2 9 SPIRONOLACTO 1 tablet 2 SPIRONOLACTONE 50983733241 No Joseph W Active NE 25 MG TAB by mouth 0 Longer Farooq DO daily 1 Active 4 / 0 8 2 9 METFORMIN 1 tablet 2 METFORMIN HCL 81941679255 No Joseph W Active HCL 500 MG by mouth 0 Longer Farooq DO TABS twice 1 Active daily 4 / 0 8 / 2 9 AMARYL 1 MG 1 tab 2 GLIMEPIRIDE 07068598473 No Joseph W Active TABS twice 0 Longer Farooq DO daily 1 Active 4 / 0 8 / 2 9 PHENTERMINE 1 po q am 2 PHENTERMINE HCL 69703556396 No Joseph W Active HCL 37.5 MG for wt. 0 Longer Farooq DO TABS loss 1 Active 3 / 1 2 / 2 3 PROMETHAZINE 1 tab by 2 PROMETHAZINE 20608853584 No Joseph W Active HCL 25 MG mouth 0 HCL Longer Farooq DO TABS every 6 1 Active hours as 3 needed / 0 9 / 0 9 CIPROFLOXACI Take one 2 CIPROFLOXACIN 36837485656 No Joseph W Active N HCL 500 MG (1) tablet 0 HCL Longer Farooq DO TABS by mouth 1 Active twice a 3 day / 0 9 / 0 9 ABILIFY 5 MG one p.o. 2 ARIPIPRAZOLE 06321023758 No Joseph W Active TABS q. day 0 Longer Farooq DO 1 Active 3 / 0 9 / 0 9 HYDROCHLOROT 2 tabs 2 HYDROCHLOROTHIA 51652333467 No Joseph W Active HIAZIDE 25 every 0 ZIDE Longer Farooq DO MG TABS morning 1 Active 3 / 0 6 / 2 7 ABILIFY 2 MG 1 po q hs 2 ARIPIPRAZOLE 10757180915 No Joseph W Active TABS for major [address] [facility] depression 1 Active 3 / 0 5 / 0 7 ADIPEX-P 1/2 tab po 2 PHENTERMINE HCL 73362783071 No Casey Active 37.5 MG CAPS q am for 0 Longer [facility] [place] weight 1 Active loss 3 / 0 5 / 0 1 CIPRO 500 MG 1 tablet 2 CIPROFLOXACIN 50785348657 No Casey Active TAB by mouth 0 HCL Longer [facility] [place] twice 1 Active daily 3 / 0 5 / 0 1 NECON 1 po daily 2 NORETHINDRONE-E 00421843529 No Casey Active () - 0 ESTRADIOL Longer [facility] [place] MG-MCG TABS 1 Active 3 / 0 5 / 0 1 TRAMADOL HCL 1 po tid 2 TRAMADOL HCL 25581933208 No Casey Active 50 MG TABS with ES 0 Longer [facility] [place] Tylenol 1 Active 3 / 0 5 / 0 1 FLUCONAZOLE one p.o. 2 FLUCONAZOLE 09224588698 No Casey Active 100 MG TABS q. day 2 0 Longer [facility] days 1 Active 3 / 0 5 / 0 1 POTASSIUM 1 capsule 2 POTASSIUM 68601103784 No Casey Active CHLORIDE CR by mouth 0 CHLORIDE Longer [facility] [place] 10 MEQ CPCR daily 1 Active 3 / 0 5 / 0 1 IMIPRAMINE Take 6 IMIPRAMINE HCL 47936363307 Active Indigo Active HCL 50 MG tablets by Yokum TABS mouth at HISTOLOGY TECHNICIAN bedtime DIFLUCAN 100 1 tablet 2 FLUCONAZOLE 18348483882 No Joseph W Active MG TAB by mouth [address] [facility] daily 1 Active 2 / 0 2 / 2 4 VERAPAMIL 2 po bid VERAPAMIL HCL 61744224647 Active Indigo Active HCL CR 120 Yokum MG TAB CR HISTOLOGY TECHNICIAN PERMETHRIN 5 apply neck 2 PERMETHRIN 24956223645 No Joseph W Active % CREA to toes [address] [facility] tonight 1 Active and then 2 rinse off / in 0 morning. 1 repeat at / 7 days 2 0 SEROQUEL XR one p.o. 2 QUETIAPINE 45400648150 No Joseph W Active 50 MG q. evening 0 FUMARATE Longer Farooq DO [id number] 1 Active 2 / 0 1 / 2 0 TRAMADOL HCL 1-2 2 TRAMADOL HCL 01479927645 No Joseph W Active 50 MG TABS tablets 0 Longer Farooq DO every 6-8 1 Active hours as 2 needed for / pain 0 1 / 2 0 ALPRAZOLAM 3 one p.o. ALPRAZOLAM 83446523036 Active Indigo Active MG [id number] q.h.s. Yokum HISTOLOGY TECHNICIAN ALPRAZOLAM Take 1 2 ALPRAZOLAM 46705985657 No Joseph W Active XR [id number] tablet by 0 [id number] Longer Farooq DO mouth at 1 Active bedtime 1 / 2 9 DIFLUCAN 100 1 tablet 2 FLUCONAZOLE 68729941876 No Joseph W Active MG TAB by mouth 0 Longer Farooq DO daily 1 Active 0 / 0 6 AMBIEN 10 MG 1 tab by ZOLPIDEM 05029948369 Active Indigo Active TAB mouth at TARTRATE Yokum bedtime as HISTOLOGY TECHNICIAN needed for sleep DIFLUCAN 100 1 tablet DIFLUCAN 782043 FLUCONAZOLE Inactive MG TAB by mouth 100 MG TAB daily ALPRAZOLAM Take 1 ALPRAZOLAM ALPRAZOLAM Inactive XR [id number] tablet by XR [id number] mouth at [id number] bedtime TRAMADOL HCL 1-2 TRAMADOL 672835 TRAMADOL HCL Inactive 50 MG TABS tablets HCL 50 MG every 6-8 TABS hours as needed for pain SEROQUEL XR one p.o. SEROQUEL XR QUETIAPINE Inactive 50 MG q. 50 MG FUMARATE [id number] evening [id number] PERMETHRIN 5 apply PERMETHRIN 948464 PERMETHRIN Inactive % CREA neck to 5 % CREA toes tonight and then rinse off in morning. repeat at 7 days DIFLUCAN 100 1 tablet DIFLUCAN 539809 FLUCONAZOLE Inactive MG TAB by mouth 100 MG TAB daily POTASSIUM 1 capsule POTASSIUM POTASSIUM Inactive CHLORIDE CR by mouth CHLORIDE CR CHLORIDE 10 MEQ CPCR daily 10 MEQ CPCR FLUCONAZOLE one p.o. FLUCONAZOLE 19760111 FLUCONAZOLE Inactive 100 MG TABS q. day 2 100 MG TABS days TRAMADOL HCL 1 po tid TRAMADOL 445743 TRAMADOL HCL Inactive 50 MG TABS with ES HCL 50 MG Tylenol TABS NECON 35 1 po NECON NORETHINDRONE- Inactive () 1-35 daily () 1-35 ETH ESTRADIOL MG-MCG TABS MG-MCG TABS CIPRO 500 MG 1 tablet CIPRO 500 606466 CIPROFLOXACIN Inactive TAB by mouth MG TAB HCL twice daily ADIPEX-P 1/2 tab ADIPEX-P 053566 PHENTERMINE Inactive 37.5 MG CAPS po q am 37.5 MG HCL for CAPS weight loss ABILIFY 2 MG 1 po q hs ABILIFY 2 074612 ARIPIPRAZOLE Inactive TABS for major MG TABS depressio n HYDROCHLOROT 2 tabs HYDROCHLORO 052397 HYDROCHLOROTHI Inactive HIAZIDE 25 every THIAZIDE 25 AZIDE MG TABS morning MG TABS ABILIFY 5 MG one p.o. ABILIFY 5 886772 ARIPIPRAZOLE Inactive TABS q. day MG TABS CIPROFLOXACI Take one CIPROFLOXAC 929606 CIPROFLOXACIN Inactive N HCL 500 MG (1) IN HCL 500 HCL TABS tablet by MG TABS mouth twice a day PROMETHAZINE 1 tab by PROMETHAZIN 227123 PROMETHAZINE Inactive HCL 25 MG mouth E HCL 25 MG HCL TABS every 6 TABS hours as needed PHENTERMINE 1 po q am PHENTERMINE 703798 PHENTERMINE Inactive HCL 37.5 MG for wt. HCL 37.5 MG HCL TABS loss TABS AMARYL 1 MG 1 tab AMARYL 1 MG 19910808 GLIMEPIRIDE Inactive TABS twice TABS daily METFORMIN 1 tablet METFORMIN 047352 METFORMIN HCL Inactive HCL 500 MG by mouth HCL 500 MG TABS twice TABS daily SPIRONOLACTO 1 tablet SPIRONOLACT 883250 SPIRONOLACTONE Inactive NE 25 MG TAB by mouth ONE 25 MG daily TAB POTASSIUM 2 capsule POTASSIUM POTASSIUM Inactive CHLORIDE CR by mouth CHLORIDE CR CHLORIDE 10 MEQ CPCR daily 10 MEQ CPCR LISINOPRIL 1 tablet LISINOPRIL 735940 LISINOPRIL Inactive 20 MG TABS by mouth 20 MG TABS daily DIFLUCAN 100 1 tablet DIFLUCAN 162705 FLUCONAZOLE Inactive MG TABS by mouth 100 MG TABS every other day for 2 doses DIFLUCAN 100 1 tablet DIFLUCAN 725940 FLUCONAZOLE Inactive MG TAB by mouth 100 MG TAB daily x 3 days PREDNISONE 2 tablets PREDNISONE 878595 PREDNISONE Inactive 20 MG TAB today, 20 MG TAB then 1 tablet days 2-4 VYVANSE 20 1 tablet VYVANSE 20 LISDEXAMFETAMI Inactive MG ORAL CAPS daily for MG ORAL NE DIMESYLATE binge CAPS eating disorder TRAMADOL HCL 1/2 po TRAMADOL 840168 TRAMADOL HCL Inactive 50 MG TABS tid with HCL 50 MG ES TABS Tylenol prn pain JANUVIA 100 1 tablet JANUVIA 100 SITAGLIPTIN Inactive MG TABS by mouth MG TABS PHOSPHATE daily AMARYL 1 MG 1 tablet AMARYL 1 MG 19910808 GLIMEPIRIDE Inactive ORAL TABS orally ORAL TABS twice daily METFORMIN 2 tablets METFORMIN METFORMIN HCL Inactive HCL 500 MG by mouth HCL 500 MG TB24 twice TB24 daily AMOXICILLIN 2 po BID AMOXICILLIN 910253 AMOXICILLIN Inactive 500 MG CAPS x 10 days 500 MG CAPS PREDNISONE 2 tabs PREDNISONE 488410 PREDNISONE Inactive 20 MG TAB daily for 20 MG TAB 3 days, 1 tab daily for 3 days, 1/2 tab daily for 2 days NITROFURANTO One NITROFURANT 1979642 NITROFURANTOIN Inactive IN MONOHYD capsule OIN MONOHYD MONOHYD MACRO MACRO 100 MG BID for MACRO 100 CAPS UTI MG CAPS PREDNISONE 2 pills PREDNISONE 299356 PREDNISONE Inactive 20 MG TAB daily x 4 20 MG TAB days AZITHROMYCIN 2 po qd x AZITHROMYCI 1201530 AZITHROMYCIN Inactive 250 MG TABS 1 day, N 250 MG then 1 po TABS qd x 4 days CIPRO 250 MG 1 tablet CIPRO 250 184358 CIPROFLOXACIN Inactive TAB by mouth MG TAB HCL twice daily Advance Directives Directive Description Start Date PERMISSION TO SHARE Vital Signs Date Name Value Unit Range Description blood pressure, diastolic - 8462-4 66 mm[Hg] BP nunez blood pressure, systolic - 8480-6 137 mm[Hg] BP sys pulse rate E&M - 8867-4 88 /min Heart rate temperature E&M 96.6 [degF] Body temperature weight E&M - 3141-9 255.5 [lb_av] Weight Measured blood pressure, diastolic - 8462-4 83 mm[Hg] BP nunez blood pressure, systolic - 8480-6 113 mm[Hg] BP sys pulse rate E&M - 8867-4 78 /min Heart rate temperature E&M 98.0 [degF] Body temperature weight E&M - 3141-9 245 [lb_av] Weight Measured blood pressure, diastolic - 8462-4 65 mm[Hg] BP nnuez blood pressure, systolic - 8480-6 115 mm[Hg] BP sys pulse rate E&M - 8867-4 80 /min Heart rate temperature E&M 97.6 [degF] Body temperature weight E&M - 3141-9 245 [lb_av] Weight Measured blood pressure, diastolic - [...] E&M - 3141-9 244 [lb_av] Weight Measured Diagnostic Results Date Name Value Unit Range Description Lab Report: Basic Metabolic Panel, HGBA1C - Chemistry sodium, serum 140 mmol/L 481-546 8017/06/03 potassium, serum 3.9 mmol/L 3.5-5.2 chloride, serum [...] count 214 10^3/MM^3 10*3/mm3 142-424 Lab Report: Chlamydia/GC [id number] - Lab chlamydia DNA probe NOT DETECTED NOT DETECTED Lab Report: Chlamydia/GC APTIMA/[id number] - Microbiology Neisseria gonorrhoeae DNA probe NOT DETECTED NOT DETECTED Lab Report: Lipid Panel - Chemistry cholesterol, serum 157 mg/dL 311-710 7983/08/22 triglyceride, serum, fasting 215 mg/dL 30-200 HDL cholesterol, serum 43 mg/dL 32-96 LDL cholesterol, serum 71 mg/dL 0-130 Lab Report: UA DIP/MANUAL - Chemistry protein, total urine random Trace mg/dL Negative RBC, urine, dipstick Negative Negative Lab Report: UA DIP/MANUAL - Urinalysis urobilinogen, urine, semiquantitative (dipstick) 1.0 Normal leukocyte esterase, urine, by dipstick Trace Negative nitrite, urine, semiquantitative positive Negative glucose, urine, semiquantitative Negative Negative ketones, urine, by test strip Negative Negative bilirubin, urine 1+ Negative specific gravity, urine 1.020 1.000-1.030 pH, urine, semiquantitative 6.0 5.0-8.5 Office Visit: CN-incontinence - Chemistry RBC, urine, dipstick negative Office Visit: CN-incontinence - Urinalysis ketones, urine, by test strip negative bilirubin, urine negative glucose, urine, semiquantitative negative urine color yellow appearance, urine clear leukocyte esterase, urine, by dipstick negative nitrite, urine, semiquantitative negative urobilinogen, urine, semiquantitative (dipstick) negative protein, urine, semiquantitative (dipstick) negative Office Visit: Diabetes Visit - Basic LDL target level 100 mg/dL LDL target level 100 mg/dL Office Visit: Diabetes Visit - Chemistry home glucose monitor utilized Yes cholesterol, target level 200 mg/dL triglyceride, target level 200 mg/dL HDL cholesterol, serum, target level 35 mg/dL cholesterol, target level 200 mg/dL triglyceride, target level 200 mg/dL HDL cholesterol, serum, target level 35 mg/dL Encounters Code Encounter Date Provider Facility CPT-27168 Level 4 Est. [facility] [place] CPT-51555 Level 4 New Patient Yury Benoit MD [facility] 15:17:12 CDT CPT-92097 Level 3 Est. [facility] 13[facility] [place] CPT-00014 Level 4 Est. [facility] 10:[facility] [place] CPT-90537 Level 3 Est[facility] 08:58:07 CDT [facility] [employer] [facility] CPT-44298 Level 3 Est. Patient Faby Marino [facility] 14:40:56 CDT HISTOLOGY TECHNICIAN CPT-79889 Level 4 Est. Patient Arnold Berrios [facility] 17:29:53 CRANBERRY GROWER [employer] CPT-36535 Level 4 Est. Patient Indigo Sexton [facility] 09:51:54 [facility]AN[facility]Y GROWER CPT-40214 Level 3 Est. Patient Indigo Sexton [facility] 18:59:38 CDT CPT-19127 Level 3 Est. Patient Joseph Pineda [facility] 14:42:12 CDT -[facility] CPT-40545 Level 3 Est. Patient Joseph Pineda [facility] 22:18:20 CDT -[facility] CPT-25023 Level 3 Est. Patient Joseph Pineda [facility] 16:46:04 CDT -[facility] CPT-55993 Level 3 Est. Patient Swisshome Edwin [facility] 15:39:53 CDT -[facility] CPT-31954 Level 3 Est. Patient Maite Sanchez MD [facility] 13:33:34 CDT -[facility] CPT-02540 Level 3 Est. Patient [facility] 11:37:08 CDT -[facility] CPT-83887 Level 3 Est. Patient Joseph Pineda [facility] 17:13:29 CRAN[facility]ERRY GROWER -[facility] CPT-14225 Level 3 Est. Patient Joseph Pineda [facility] 18:42:44 CDT CPT-76833 Level 3 Est. Patient Joseph Pineda [facility] 16:25:39 CDT CPT-28212 Level 3 Est. Patient Casey ARCHIBALD [facility] 09:52:45 CDT -[facility] CPT-90913 Level 3 Est. Patient Joseph Pineda [facility] 11:03:29 CRAN[facility]Y GROWER -[facility] CPT-99788 Level 3 Est. Patient Joseph Pineda [facility] 11:03:08 [facility]Y GROWER -[facility] CPT-86263 Level 3 Est. Patient Joseph Edwin [facility] 14:33:31 CDT -[facility] CPT-75111 Level 3 Est. Patient Joseph Trivedi [facility] 17:05:02 CRANBERRY GROWER -C CPT-98843 Level 3 Est. Patient Joseph Trivedi [facility] 17:48:06 CRAN[facility]Y GROWER -[facility] CPT-28200 Level 3 Est. Patient Joseph Trivedi [facility] 14:59:22 [facility]AN[facility]Y GROWER -[facility] CPT-89834 Level 3 Est. Patient Joseph Trivedi [facility] - 21:45:56 CRANBERRY GROWER [place] [facility] CPT-19874 Level 3 Est. Patient Joseph Pineda [facility] 21:29:50 CDT -C CPT-50306 Level 3 Est. Patient Joseph Pineda [facility] 12:41:09 CDT -C Procedures Code Procedure Name Date Entry Date Standard Description CPT-37031 Wet Mount - LAB USE ONLY 12:39:03 [facility] CPT-52503 Vaginal Culture - LAB USE ONLY 12:39:03 [facility] CPT-83158 Urine Culture - LAB USE ONLY 11:52:44 [facility] CPT-51301 UA w micro - LAB USE ONLY 11:52:44 [facility] CPT-70171 Postop F/U Visit 12:08:35 CDT CPT-62661 Postop F/U Visit 18:20:10 CDT CPT-A4351 Coloplast Female Cath 09:37:10 CDT CPT-72268 Urine Dip (Floor Use Only) 15:17:13 CDT CPT-37973 Dil F ureth int 15:17:13 CDT CPT-62261 Venipuncture Draw Fee 09:19:08 CDT CPT-94049 Lipid - LAB USE ONLY 09:19:07 CDT CPT-JTINJ Asp/Joint Injection 09:26:49 CDT CPT-47000 Chest 2V Frontal and Lat 14:47:43 CDT CPT-JTINJ Asp/Joint Injection 09:51:53 [facility]OWER CPT-OV Office Visit 17:39:05 CDT CPT-OV Office Visit 15:19:50 CDT CPT-75484 Sono transvag pelvis non OB uterus ovaries cervix 18:04:34 CDT CPT-10692 Venipuncture Draw Fee 08:55:49 [facility]
--- OUTSIDE RECORDS SUMMARY | 2016-11-20 13:06 | External Medical Summary | Clinical Summary ---
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 Active NKDA Critical Inactive Adrianna Elder Conditions [...] Resolved Indigo Other malaise 05/24 07/02 [employer] WEB MARKETING MANAGER and fatigue SLEEP APNEA, 327.23 Active Joseph Pineda Obstructive OBSTRUCTIVE, 06/27 06/27 Farooq CORDERO sleep apnea MILD (adult) (pediatric) OVERWEIGHT 278.02 Active Joseph Pineda Overweight 06/28 06/28 Farooq OTH GENERAL V70.3 Resolved Maite Gutierrez Other general MEDICAL Laura ONEAL medical EXAMINATION PhD examination for ADMIN PURPOSES administrative purposes OTHER ABNORMAL 790.29 Resolved Maite Gutierrez Other abnormal GLUCOSE 05/20 Laura ONEAL glucose PhD ACUTE 466.0 Resolved Maite Gutierrez Acute BRONCHITIS 09/02 Laura ONEAL bronchitis PhD DEPENDENT 782.3 Active Joseph Pineda Edema EDEMA, LEGS, 10/29 10/29 Farooq DO BILATERAL HYPOKALEMIA, 276.8 Resolved Indigo Hypopotassemia MILD 10/29 07/02 Yo WEB MARKETING MANAGER Diabetes, Type 250.00 Inactive Joseph Pineda Diabetes 2 06/27 06/27 Farooq DO mellitus without mention of complication, type II or unspecified type, not stated as uncontrolled Diabetes 250.02 Active Indigo Diabetes mellitus, type 06/27um WEB MARKETING MANAGER mellitus II, without mention uncontrolled of complication, type II or unspecified type, uncontrolled Health V70.0 Active Joseph Pineda Routine general screening 01/17 01/17 Farooq DO medical examination at a health care facility Sinusitis, 461.1 Resolved Ismael Coyne Acute frontal frontal, acute 012/26 [place] sinusitis Laryngitis, 464.00 Resolved Ismael Coyne Acute acute 012/26 [place] laryngitis without mention of obstruction Binge eating 307.51 Active Joseph Pineda Bulimia nervosa disorder 08/15 08/15 Farooq DO Routine V72.31 Resolved Indigo Routine gynecological 12/14 07/02 Yo WEB MARKETING MANAGER gynecological examination examination Postmenopausal 627.1 Resolved Indigo Postmenopausal bleeding 12/14 07/02 Youm WEB MARKETING MANAGER bleeding Screening for V76.51 Resolved Indigo Screening for malignant 12/26 07/02 [employer]okum WEB MARKETING MANAGER malignant neoplasms of neoplasms of colon colon Insomnia, 307.42 Active Indigo 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 WEB MARKETING MANAGER disorder of initiating or maintaining sleep Establish care V68.89 Resolved Indigo Encounters for or get 01/16 07/02 Yo WEB MARKETING MANAGER other specified acquainted administrative visit purpose Weakness, left 342.90 Active Indigo Hemiplegia, side of body 06/20 06/20 [employer]okum WEB MARKETING MANAGER unspecified, affecting unspecified side TIA 435.9 Active Indigo Unspecified 06/20 07/02 [employer]um WEB MARKETING MANAGER transient cerebral ischemia Knee pain, 719.46 Active Indigo Pain in joint bilateral 06/20 07/02 [employer] WEB MARKETING MANAGER involving lower leg Bronchitis 490 Active Jillina Bronchitis, not 07/23 07/23 Frazell specified as WEB MARKETING MANAGER acute or chronic ABNORMAL VAGINAL ICD-626.9 Inactive Maite C Laura BLEEDING PhD SCABIES ICD-133.0 Inactive Maite C Laura MD PhD FATIGUE ICD-780.79 Inactive Indigo [employer] WEB MARKETING MANAGER OTH GENERAL ICD-V70.3 Inactive Maite C Laura MEDICAL MD PhD EXAMINATION ADMIN PURPOSES OTHER ABNORMAL ICD-790.29 Inactive Maite C Laura GLUCOSE MD PhD ACUTE BRONCHITIS ICD-466.0 Inactive Maite C Laura PhD HYPOKALEMIA, MILD ICD-276.8 Inactive Indigo [employer] WEB MARKETING MANAGER Sinusitis, ICD-461.1 Inactive Ismael Coyne frontal, acute Amandeep ONEAL Laryngitis, acute ICD-464.00 Inactive Ismael Coyne Amandeep ONEAL Routine ICD-V72.31 Inactive Indigo [employer]um gynecological WEB MARKETING MANAGER examination Postmenopausal ICD-627.1 Inactive Indigo Yokum 2015 bleeding WEB MARKETING MANAGER Screening for ICD-V76.51 Inactive Indigo Yokum 2015 malignant WEB MARKETING MANAGER neoplasms of colon Establish care or ICD-V68.89 Inactive Indigo Yokum get acquainted WEB MARKETING MANAGER visit Medication List Medication Instructions Start Stop Generic NDC Status Provider Patient Date Date Name Instruction METOPROLOL 1 tab po METOPROLOL 93338043105 Active Sherice Active TARTRATE 25 MG bid TARTRATE Wilfredo RMA TABS AZITHROMYCIN 2 po qd 2 AZITHROMYCIN 94622215651 Active Jillina Active 250 MG TABS x 1 day, 0 Frazell then 1 1 WEB MARKETING MANAGER po qd x 6 4 days / 0 3 / 2 6 PREDNISONE 20 2 pills 2 PREDNISONE 86804734523 Active Jillina Active MG TAB daily x 0 Frazell 4 days 1 WEB MARKETING MANAGER 6 / 0 3 / 2 5 PIOGLITAZONE take one PIOGLITAZONE 93394562792 Active Maliheh Active HCL 30 MG ORAL a day HCL Ziglari TABS AERONAUTICAL ENGINEERING PROFESSOR JANUVIA 100 MG 1 tablet 2 SITAGLIPTIN 22577571920 No Indigo Active TABS by mouth 0 PHOSPHATE Longer Yokum daily 1 Active WEB MARKETING MANAGER 6 / 0 6 ATORVASTATIN 1 pill ATORVASTATIN 11588147650 Active Indigo Active CALCIUM 10 MG by mouth CALCIUM [employer] TABS nightly, WEB MARKETING MANAGER for choleste rol TROKENDI XR 100 1 tab TOPIRAMATE 51408801904 Active Indigo Active MG ORAL daily [employer]ok[employer] [id number] WEB MARKETING MANAGER ASPIRIN 81 MG 1 po qd ASPIRIN 33012031479 Active Indigo Active ORAL TABS [employer]ok[employer] WEB MARKETING MANAGER NITROFURANTOIN One 2 NITROFURANTOIN 49027120591 No Indigo Active MONOHYD MACRO capsule 0 MONOHYD MACRO Longer Yokum 100 MG CAPS BID for 1 Active WEB MARKETING MANAGER UTI 6 / 0 3 METFORMIN HCL 2 METFORMIN HCL 53353748288 Active Indigo Active 500 MG TB24 tablets [employer]ok[employer] by mouth WEB MARKETING MANAGER twice daily TRAMADOL HCL 50 1/2 po 2 TRAMADOL HCL 15112485259 No Jillina Active MG TABS tid with 0 Longer Frazell ES 1 Active WEB MARKETING MANAGER Tylenol 5 prn pain / 0 2 VYVANSE 20 MG 1 tablet 2 LISDEXAMFETAMIN 97243356436 No Jillina Active ORAL CAPS daily 0 E DIMESYLATE Longer Frazell for 1 Active WEB MARKETING MANAGER binge 5 eating / disorder 0 8 / 1 2 LASIX 20 MG TAB 2 tablet FUROSEMIDE 24741379391 Active Indigo Active by mouth [employer]okum daily WEB MARKETING MANAGER CELEBREX 200 MG 1 tablet CELECOXIB 95007464578 Active Joseph W Active CAPS by mouth Farooq DO daily with meals PREDNISONE 20 2 2 PREDNISONE 16503223262 No Joseph W Active MG TAB tablets 0 Longer Farooq DO today, 1 Active then 1 5 tablet / days 2-4 0 3 DIFLUCAN 100 MG 1 tablet 2 FLUCONAZOLE 93902182547 No Joseph W Active TAB by mouth 0 Longer Farooq DO daily x 1 Active 3 days 5 / 0 3 AMARYL 1 MG 1 tablet GLIMEPIRIDE 10902936161 Active Joseph W Active ORAL TABS orally Farooq DO twice daily DIFLUCAN 100 MG 1 tablet 2 FLUCONAZOLE 46287759683 No Joseph W Active TABS by mouth 0 Longer Farooq DO every 1 Active other 5 day for / 2 doses 0 1 / 2 3 ZOFRAN 4 MG 1 po ONDANSETRON HCL 61028769626 Active Joseph W Active TABS q6hr PRN Farooq DO Nausea PREDNISONE 20 2 tabs 2 PREDNISONE 67497078369 No Joseph W Active MG TAB daily 0 Longer Farooq DO for 3 1 Active days, 1 4 tab / daily 1 for 3 0 days, / 1/2 tab 2 daily 5 for 2 days AMOXICILLIN 500 2 po BID 2 AMOXICILLIN 58326511677 No Maite C Active MG CAPS x 10 0 Longer Madril days 1 Active PhD 0 / 2 0 LISINOPRIL 20 1 tablet 2 LISINOPRIL 68889670133 No Maite C Active MG TABS by mouth 0 Longer Madril daily 1 Active PhD 0 / 1 0 POTASSIUM 2 2 POTASSIUM 13392278651 No Joseph Pineda Active CHLORIDE CR 10 capsule 0 CHLORIDE Longer Farooq DO MEQ CPCR by mouth 1 Active daily 4 / 0 8 / 2 9 SPIRONOLACTONE 1 tablet 2 SPIRONOLACTONE 30979457808 No Joseph Pineda Active 25 MG TAB by mouth 0 Longer Farooq DO daily 1 Active 4 / 0 8 / 2 9 METFORMIN HCL 1 2 METFORMIN HCL 60788856728 No Joseph W Active 500 MG TABS tablet 0 Longer Farooq DO by mouth 1 Active twice 4 daily / 0 8 / 2 9 AMARYL 1 MG 1 tab 2 GLIMEPIRIDE 50956204065 No Joseph W Active TABS twice 0 Longer Farooq DO daily 1 Active 4 / 0 8 / 2 9 PHENTERMINE HCL 1 po q 2 PHENTERMINE HCL 59705504549 No Joseph W Active 37.5 MG TABS am for 0 Longer Farooq DO wt. loss 1 Active 3 / 1 2 / 2 3 PROMETHAZINE 1 tab by 2 PROMETHAZINE 00876462583 No Joseph W Active HCL 25 MG TABS mouth 0 HCL Longer Farooq DO every 6 1 Active hours as 3 needed / 0 9 / 0 9 CIPROFLOXACIN Take one 2 CIPROFLOXACIN 16410001487 No Joseph W Active HCL 500 MG TABS (1) 0 HCL Longer Farooq DO tablet 1 Active by mouth 3 twice a / day 0 9 / 0 9 ABILIFY 5 MG one p.o. 2 ARIPIPRAZOLE 02476745761 No Joseph W Active TABS q. day 0 Longer Farooq DO 1 Active 3 / 0 9 / 0 9 HYDROCHLOROTHIA 2 tabs 2 HYDROCHLOROTHIA 73168703977 No Joseph W Active ZIDE 25 MG TABS every 0 ZIDE Longer Farooq DO morning 1 Active 3 / 0 6 / 2 7 ABILIFY 2 MG 1 po q 2 ARIPIPRAZOLE 76813201581 No Joseph W Active TABS hs for 0 Longer Farooq DO major 1 Active depressi 3 on / 0 5 / 0 7 ADIPEX-P 37.5 1/2 tab 2 PHENTERMINE HCL 32579312406 No Casey Active MG CAPS po q am 0 Longer Leonarda for 1 Active PA weight 3 loss / 0 5 / 0 1 CIPRO 500 MG 1 tablet 2 CIPROFLOXACIN 30687610603 No Casey Active TAB by mouth 0 HCL Longer Wingate twice 1 Active PA daily 3 / 0 5 / 0 1 NECON 1/35 (28) 1 po 2 NORETHINDRONE-E 29538138549 No Casey Active 1-35 MG-MCG daily 0 TH ESTRADIOL Longer Wingate TABS 1 Active PA 3 / 0 5 / 0 1 TRAMADOL HCL 50 1 po tid 2 TRAMADOL HCL 27355668356 No Casey Active MG TABS with ES 0 Longer Tylenol 1 Active PA 3 / 0 5 / 0 1 FLUCONAZOLE 100 one p.o. 2 FLUCONAZOLE 68106184467 No Casey Active MG TABS q. day 2 0 Longer Leonarda days 1 Active PA 3 / 0 5 / 0 1 POTASSIUM 1 2 POTASSIUM 97832117036 No Casey Active CHLORIDE CR 10 capsule 0 CHLORIDE Longer MEQ CPCR by mouth 1 Active PA daily 3 / 0 5 / 0 1 IMIPRAMINE HCL Take 6 IMIPRAMINE HCL 89485871124 Active Joseph W Active 50 MG TABS tablets Farooq DO by mouth at bedtime DIFLUCAN 100 MG 1 tablet 2 FLUCONAZOLE 61041110825 No Joseph W Active TAB by mouth 0 Longer Farooq DO daily 1 Active 2 / 0 2 / 2 4 VERAPAMIL HCL 2 po bid VERAPAMIL HCL 46810324045 Active Joseph W Active CR 120 MG TAB Farooq DO CR PERMETHRIN 5 % apply 2 PERMETHRIN 87526510616 No Joseph W Active CREA neck to 0 Longer Farooq DO toes 1 Active tonight 2 and then / rinse 0 off in 1 morning. / repeat 2 at 7 0 days SEROQUEL XR 50 one p.o. 2 QUETIAPINE 80635219766 No Joseph W Active MG [id number] q. 0 FUMARATE Longer Farooq DO evening 1 Active 2 / 0 1 / 2 0 TRAMADOL HCL 50 1-2 2 TRAMADOL HCL 52734477300 No Joseph W Active MG TABS tablets 0 Longer Farooq DO every 1 Active 6-8 2 hours as / needed 0 for pain 1 / 2 0 ALPRAZOLAM 3 MG one p.o. ALPRAZOLAM 99776878209 Active Indigo Active [id number] q.h.s. [employer]okum WEB MARKETING MANAGER ALPRAZOLAM XR Take 1 2 ALPRAZOLAM 59313025287 No Joseph W Active [id number] tablet 0 [id number] Longer Farooq DO by mouth 1 Active at 1 bedtime / 1 1 / 2 9 DIFLUCAN 100 MG 1 tablet 2 FLUCONAZOLE 82016175072 No Joseph W Active TAB by mouth 0 Longer Farooq DO daily 1 Active 0 / 0 6 AMBIEN 10 MG 1 tab by ZOLPIDEM 71856210658 Active Afsaneh Active TAB mouth at TARTRATE Gericke, bedtime MA as needed for sleep DIFLUCAN 100 1 tablet DIFLUCAN 913353 FLUCONAZOLE Inactive MG TAB by mouth 100 MG TAB daily ALPRAZOLAM Take 1 ALPRAZOLAM ALPRAZOLAM Inactive XR [id number] tablet by XR [id number] mouth at [id number] bedtime TRAMADOL HCL 1-2 TRAMADOL 202302 TRAMADOL HCL Inactive 50 MG TABS tablets HCL 50 MG every 6-8 TABS hours as needed for pain SEROQUEL XR one p.o. SEROQUEL XR QUETIAPINE Inactive 50 MG q. 50 MG FUMARATE [id number] evening [id number] PERMETHRIN 5 apply PERMETHRIN 954628 PERMETHRIN Inactive % CREA neck to 5 % CREA toes tonight and then rinse off in morning. repeat at 7 days DIFLUCAN 100 1 tablet DIFLUCAN 809915 FLUCONAZOLE Inactive MG TAB by mouth 100 MG TAB daily POTASSIUM 1 capsule POTASSIUM POTASSIUM Inactive CHLORIDE CR by mouth CHLORIDE CR CHLORIDE 10 MEQ CPCR daily 10 MEQ CPCR FLUCONAZOLE one p.o. FLUCONAZOLE 19760111 FLUCONAZOLE Inactive 100 MG TABS q. day 2 100 MG TABS days TRAMADOL HCL 1 po tid TRAMADOL 253421 TRAMADOL HCL Inactive 50 MG TABS with ES HCL 50 MG Tylenol TABS NECON 1/35 1 po NECON /35 NORETHINDRONE- Inactive (28) 1-35 daily (28) 1-35 ETH ESTRADIOL MG-MCG TABS MG-MCG TABS CIPRO 500 MG 1 tablet CIPRO 500 731093 CIPROFLOXACIN Inactive TAB by mouth MG TAB HCL twice daily ADIPEX-P 1/2 tab ADIPEX-P 884775 PHENTERMINE Inactive 37.5 MG CAPS po q am 37.5 MG HCL for CAPS weight loss ABILIFY 2 MG 1 po q hs ABILIFY 2 628456 ARIPIPRAZOLE Inactive TABS for major MG TABS depressio n HYDROCHLOROT 2 tabs HYDROCHLORO 947181 HYDROCHLOROTHI Inactive HIAZIDE 25 every THIAZIDE 25 AZIDE MG TABS morning MG TABS ABILIFY 5 MG one p.o. ABILIFY 5 907600 ARIPIPRAZOLE Inactive TABS q. day MG TABS CIPROFLOXACI Take one CIPROFLOXAC 880972 CIPROFLOXACIN Inactive N HCL 500 MG (1) IN HCL 500 HCL TABS tablet by MG TABS mouth twice a day PROMETHAZINE 1 tab by PROMETHAZIN 601834 PROMETHAZINE Inactive HCL 25 MG mouth E HCL 25 MG HCL TABS every 6 TABS hours as needed PHENTERMINE 1 po q am PHENTERMINE 489776 PHENTERMINE Inactive HCL 37.5 MG for wt. HCL 37.5 MG HCL TABS loss TABS AMARYL 1 MG 1 tab AMARYL 1 MG 236890 GLIMEPIRIDE Inactive TABS twice TABS daily METFORMIN 1 tablet METFORMIN 130549 METFORMIN HCL Inactive HCL 500 MG by mouth HCL 500 MG TABS twice TABS daily SPIRONOLACTO 1 tablet SPIRONOLACT 733064 SPIRONOLACTONE Inactive NE 25 MG TAB by mouth ONE 25 MG daily TAB POTASSIUM 2 capsule POTASSIUM POTASSIUM Inactive CHLORIDE CR by mouth CHLORIDE CR CHLORIDE 10 MEQ CPCR daily 10 MEQ CPCR LISINOPRIL 1 tablet LISINOPRIL 040596 LISINOPRIL Inactive 20 MG TABS by mouth 20 MG TABS daily DIFLUCAN 100 1 tablet DIFLUCAN 502788 FLUCONAZOLE Inactive MG TABS by mouth 100 MG TABS every other day for 2 doses DIFLUCAN 100 1 tablet DIFLUCAN 025021 FLUCONAZOLE Inactive MG TAB by mouth 100 MG TAB daily x 3 days PREDNISONE 2 tablets PREDNISONE 127160 PREDNISONE Inactive 20 MG TAB today, 20 MG TAB then 1 tablet days 2-4 VYVANSE 20 1 tablet VYVANSE 20 LISDEXAMFETAMI Inactive MG ORAL CAPS daily for MG ORAL NE DIMESYLATE binge CAPS eating disorder TRAMADOL HCL 1/2 po TRAMADOL 951317 TRAMADOL HCL Inactive 50 MG TABS tid with HCL 50 MG ES TABS Tylenol prn pain JANUVIA 100 1 tablet JANUVIA 100 SITAGLIPTIN Inactive MG TABS by mouth MG TABS PHOSPHATE daily AMOXICILLIN 2 po BID AMOXICILLIN 042587 AMOXICILLIN Inactive 500 MG CAPS x 10 days 500 MG CAPS PREDNISONE 2 tabs PREDNISONE 649865 PREDNISONE Inactive 20 MG TAB daily for 20 MG TAB 3 days, 1 tab daily for 3 days, 1/2 tab daily for 2 days NITROFURANTO One NITROFURANT 5384282 NITROFURANTOIN Inactive IN MONOHYD capsule OIN MONOHYD MONOHYD MACRO MACRO 100 MG BID for MACRO 100 CAPS UTI MG CAPS Advance Directives Directive Description Start Date PERMISSION TO SHARE Vital Signs Date Name Value Unit Range Description blood pressure, diastolic - 8462-4 80 mm[Hg] [...] E&M - 3141-9 247 [lb_av] Weight Measured blood pressure, diastolic - 8462-4 83 mm[Hg] BP nunez blood pressure, systolic - 8480-6 121 mm[Hg] BP sys pulse rate E&M - 8867-4 95 /min Heart rate temperature E&M 98.5 [degF] Body temperature weight E&M - 3141-9 245 [lb_av] Weight Measured blood pressure, diastolic - 8462-4 77 mm[Hg] BP nunez blood pressure, systolic - 8480-6 113 mm[Hg] BP sys pulse rate E&M - 8867-4 93 /min Heart rate temperature E&M 98.0 [degF] Body temperature weight E&M - 3141-9 243 [lb_av] Weight Measured blood pressure, diastolic - 8462-4 92 mm[Hg] BP nunez blood pressure, systolic - 8480-6 150 mm[Hg] BP sys pulse rate E&M - 8867-4 92 /min Heart rate temperature E&M 96.8 [degF] Body temperature weight E&M - 3141-9 242 [lb_av] Weight Measured blood pressure, diastolic - 8462-4 82 mm[Hg] BP nunez blood pressure, systolic - 8480-6 125 mm[Hg] BP sys pulse rate E&M - 8867-4 89 /min Heart rate temperature E&M 98.1 [degF] Body temperature weight E&M - 3141-9 240 [lb_av] Weight Measured blood pressure, diastolic - 8462-4 83 mm[Hg] BP nunez blood pressure, systolic - 8480-6 138 mm[Hg] BP sys pulse rate E&M - 8867-4 101 /min Heart rate temperature E&M 98.5 [degF] Body temperature weight E&M - 3141-9 238 [lb_av] Weight Measured blood pressure, diastolic - 8462-4 87 mm[Hg] BP nunez blood pressure, systolic - 8480-6 137 mm[Hg] BP sys pulse rate E&M - 8867-4 83 /min Heart rate temperature E&M 97.6 [degF] Body temperature weight E&M - 3141-9 242.6 [lb_av] Weight Measured blood pressure, diastolic - 8462-4 90 mm[Hg] BP nunez blood pressure, systolic - 8480-6 135 mm[Hg] BP sys pulse rate E&M - 8867-4 85 /min Heart rate temperature E&M 97.8 [degF] Body temperature weight E&M - 3141-9 250.2 [lb_av] Weight Measured Diagnostic Results Date Name Value Unit Range Description Lab Report: CBC W/DIFF, B-Type Natriuretic Peptide [...] 214 10^3/MM^3 10*3/mm3 142-424 Lab Report: CBC, Comp. Metabolic Panel, HGBA1C - Chemistry sodium, serum 140 mmol/L 341-727 4865/04/13 potassium, serum 3.9 mmol/L 3.5-5.2 chloride, serum 100 mmol/L 98-107 carbon dioxide, venous blood 28.7 mmol/L 21.0-32.0 blood glucose 105 mg/dL 65-110 urea nitrogen, blood 9 mg/dL 7-18 creatinine, serum 0.80 mg/dL 0.60-1.30 alanine aminotransferase (SGPT), serum 58 U/L 12-78 aspartate aminotransferase (SGOT), serum 34 U/L 15-37 calcium, serum 9.2 mg/dL 8.5-10.1 bilirubin, serum, total 0.50 mg/dL 0.00-1.00 hemoglobin A1C, blood, as % of total hemoglobin 6.7 % 4.3-6.0 Lab Report: CBC, Comp. Metabolic Panel, HGBA1C - Hematology leukocyte count, blood 7.0 10^3/MM^3 10*3/mm3 4.6-10.2 erythrocyte (RBC) count 4.45 10^6/MM^3 10*6/mm3 4.04-5.48 hemoglobin, blood 13.9 g/dL 12.0-16.0 hematocrit, blood 40.9 % 36.0-46.0 mean corpuscular volume, RBC 92 fL 80-97 mean corpuscular hemoglobin, RBC 31.2 pg 27.0-31.2 mean corpuscular hemoglobin 33.9 G/DL % 31.8-35.4 concentration, RBC red blood cell distribution width 13.6 % 11.6-14.8 platelet count 219 10^3/MM^3 10*3/mm3 142-424 Lab Report: CBC, HGBA1C [...] count 198 10^3/MM^3 10*3/mm3 142-424 Lab Report: Chlamydia/GC APTIMA/27324 - Lab chlamydia DNA probe NOT DETECTED NOT DETECTED Lab Report: Chlamydia/GC APTIMA/95020 - Microbiology Neisseria gonorrhoeae DNA probe NOT DETECTED NOT DETECTED Lab Report: Comp. Metabolic Panel, Lipid Panel - Chemistry sodium, serum 136 mmol/L 411-946 7666/01/04 carbon dioxide, venous blood 27.0 mmol/L 21.0-32.0 potassium, serum 4.6 mmol/L 3.5-5.2 chloride, serum 98 mmol/L 98-107 blood glucose 174 mg/dL 65-110 urea nitrogen, blood 12 mg/dL 7-18 creatinine, serum 0.78 mg/dL 0.55-1.30 alanine aminotransferase (SGPT), serum 65 U/L 12-78 aspartate aminotransferase (SGOT), serum 34 U/L 15-37 calcium, serum 8.9 mg/dL 8.5-10.1 bilirubin, serum, total 0.40 mg/dL 0.00-1.00 cholesterol, serum 219 mg/dL 845-433 5394/01/04 triglyceride, serum, fasting 214 mg/dL 30-200 HDL cholesterol, serum 39 mg/dL 32-96 LDL cholesterol, serum 137 mg/dL 0-130 Lab Report: FSH AND LH/7137/Adult - Chemistry follicle stimulating hormone, serum 84.0 m[iU]/mL luteinizing hormone, serum 40.2 m[iU]/mL Lab Report: HGBA1C, CBC - Chemistry hemoglobin A1C, blood, as % of total hemoglobin 6.0 % 4.3-6.0 Lab Report: HGBA1C, CBC - Hematology leukocyte count, blood 7.2 10^3/MM^3 10*3/mm3 4.6-10.2 erythrocyte (RBC) count 4.13 10^6/MM^3 10*6/mm3 4.04-5.48 hemoglobin, blood 12.8 g/dL 12.0-16.0 hematocrit, blood 37.7 % 36.0-46.0 mean corpuscular volume, RBC 91 fL 80-97 mean corpuscular hemoglobin, RBC 31.0 pg 27.0-31.2 mean corpuscular hemoglobin 33.9 G/DL % 31.8-35.4 concentration, RBC red blood cell distribution width 14.6 % 11.6-14.8 platelet count 231 10^3/MM^3 10*3/mm3 142-424 Lab Report: Thyroid Stimulating Hormone (L), Free Thyroxine (L) - Chemistry TSH 2.84 m[iU]/mL 0.36-3.74 thyroxine, serum, free 0.88 ng/dL 0.76-1.46 Lab Report: Thyroid Stimulating Hormone (L), MICROALBUMIN, Basic Metabol ... - Chemistry TSH 2.24 m[iU]/mL 0.36-3.74 albumin/creatinine ratio, urine < 30 mg/g mg/g{creat} 0-29 sodium, serum 140 mmol/L 367-789 5629/07/21 potassium, serum 3.9 mmol/L 3.5-5.2 chloride, serum 102 mmol/L 98-107 carbon dioxide, venous blood 33.4 mmol/L 21.0-32.0 blood glucose 156 mg/dL 65-110 calcium, serum 8.4 mg/dL 8.5-10.1 urea nitrogen, blood 14 mg/dL 7-18 creatinine, serum 1.00 mg/dL 0.60-1.30 Lab Report: Thyroid Stimulating Hormone (L), MICROALBUMIN, Basic Metabol ... - Lab microalbumin, urine 80 0-19 Lab Report: Wet Prep, CBC - Hematology leukocyte count, blood 6.7 10^3/MM^3 10*3/mm3 4.6-10.2 erythrocyte (RBC) count 4.73 10^6/MM^3 10*6/mm3 4.04-5.48 hemoglobin, blood 14.5 g/dL 12.0-16.0 hematocrit, blood 43.1 % 36.0-46.0 mean corpuscular volume, RBC 91 fL 80-97 mean corpuscular hemoglobin, RBC 30.6 pg 27.0-31.2 mean corpuscular hemoglobin 33.6 G/DL % 31.8-35.4 concentration, RBC red blood cell distribution width 14.6 % 11.6-14.8 platelet count 234 10^3/MM^3 10*3/mm3 142-424 Office Visit: Diabetes Visit - Chemistry cholesterol, target level 200 mg/dL triglyceride, target level 200 mg/dL HDL cholesterol, serum, target level 35 mg/dL LDL target level 100 mg/dL home glucose monitor utilized Yes Encounters Code Encounter Date Provider Facility CPT-65423 Level 3 Est. Patient [facility]y [facility] 14:40:56 CDT WEB MARKETING MANAGER CPT-42352 Level 4 Est. Patient [facility] 17:29:53 NAV[employer] SENIOR OFFICER AERONAUTICAL ENGINEERING PROFESSOR CPT-78374 Level 4 Est. Patient Indigo Garciaomi [facility] 09:51:54 NAVY SENIOR OFFICER CPT-92454 Level 3 Est. Patient [facility] 18:59:38 CDT CPT-93177 Level 3 Est. Patient Joseph Pineda [facility] 14:42:12 CDT -[facility] CPT-59946 Level 3 Est. Patient Joseph Pineda [facility] 22:18:20 CDT -[facility] CPT-27581 Level 3 Est. Patient Joseph Pineda [facility] 16:46:04 CDT -[facility] CPT-38836 Level 3 Est. Patient Joseph Pineda [facility] 15:39:53 CDT -[facility] CPT-52624 Level 3 Est. Patient Maite [facility] 13:33:34 CDT -[facility] CPT-14922 Level 3 Est. Patient Joseph Pineda [facility] 11:37:08 CDT -[facility] CPT-70904 Level 3 Est. Patient Joseph Pineda [facility] 17:13:29 NAVY SENIOR OFFICER -[facility] CPT-51376 Level [address] [facility] 18:42:44 CDT CPT-62549 Level [address] [facility] 16:25:39 CDT CPT-83447 Level 3 Est. Patient Casey Brower [facility] 09:52:45 CDT -[facility] CPT-99512 Level [address] [facility] 11:03:29 NAVY SENIOR OFFICER -[facility] CPT-87150 Level [address] [facility] 11:03:08 NAVY SENIOR OFFICER -[facility] CPT-55810 Level [address] [facility] 14:33:31 CDT -[facility] CPT-43365 Level [address] [facility] 17:05:02 NAVY SENIOR OFFICER -[facility] CPT-84968 Level [address] [facility] 17:48:06 NAVY SENIOR OFFICER -[facility] CPT-05941 Level [address] [facility] 14:59:22 NAVY SENIOR OFFICER -R[facility] CPT-44528 Level [address] [facility] - 21:45:56 NAVY SENIOR OFFICER [place] [facility] CPT-58977 Level [address] [facility] 21:29:50 CDT -RHC CPT-99413 Level [address] [facility] 12:41:09 CDT -R[facility] Procedures Code Procedure Name Date Entry Date Standard Description CPT-15233 Chest 2V Frontal and Lat 14:47:43 CDT CPT-JTINJ Asp/Joint Injection 09:51:53 NAV[employer] SENIOR OFFICER CPT-OV Office Visit 17:39:05 CDT CPT-OV Office Visit 15:19:50 CDT CPT-82894 Sono transvag pelvis non OB uterus ovaries cervix 18:04:34 CDT CPT-33703 Venipuncture Draw Fee 08:55:49 NAVY SENIOR OFFICER
--- OUTSIDE RECORDS SUMMARY | 2016-11-20 13:07 | External Medical Summary | Clinical Summary ---
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 NKDA Critical Inactive Adrianna Elder Conditions or Problems Problem Name Problem Onset Status Entry Provider Comment Standard Annotate Code Date Date Description ABNORMAL 626.9 Resolved Maite Gutierrez Unspecified VAGINAL Laura ONEAL disorders of BLEEDING PhD menstruation and other abnormal bleeding from female genital tract DEPRESSION, 296.33 Active Joseph Pineda Major ACUTE, Farooq DO depressive RECURRENT disorder, recurrent episode, severe degree, without mention of psychotic behavior SCABIES 133.0 Resolved Maite Gutierrez Scabies 06/23 Laura ONEAL PhD HYPERTENSION 401.9 Active Joseph Pineda Unspecified 05/24 Farooq DO essential hypertension FATIGUE 780.79 Active Joseph Pineda Other malaise 05/24 05/24 Farooq DO and fatigue SLEEP APNEA, 327.23 Active Joseph Pineda Obstructive OBSTRUCTIVE, 06/27 06/27 Farooq DO sleep apnea MILD (adult) (pediatric) OVERWEIGHT 278.02 Active Joseph Pineda Overweight 06/28 06/28 Farooq DO OTH GENERAL V70.3 Resolved Maite Gutierrez Other general MEDICAL Laura ONEAL medical EXAMINATION PhD examination for ADMIN PURPOSES administrative purposes OTHER ABNORMAL 790.29 Resolved Maite Gutierrez Other abnormal GLUCOSE 05/20 Laura ONEAL glucose PhD ACUTE 466.0 Resolved Maite Gutierrez Acute BRONCHITIS 09/02 Laura ONEAL bronchitis PhD DEPENDENT 782.3 Active Joseph Pineda Edema EDEMA, LEGS, 10/29 10/29 Farooq DO BILATERAL HYPOKALEMIA, 276.8 Active Joseph Pineda Hypopotassemia MILD 10/29 10/29 Farooq DO Diabetes, Type 250.00 Active Joseph Pineda Diabetes 2 06/27 06/27 Farooq DO mellitus without mention of complication, type II or unspecified type, not stated as uncontrolled Health V70.0 Active Joseph Pineda Routine general screening 01/17 01/17 Farooq DO medical examination at a health care facility Sinusitis, 461.1 Resolved Ismael Coyne Acute frontal frontal, acute 12/26 Amandeep sinusitis Laryngitis, 464.00 Resolved [facility] of obstruction Binge eating 307.51 Active Joseph Pineda Bulimia nervosa disorder 08/15 08/15 Farooq DO Routine V72.31 Active Jillina Routine gynecological 12/14 12/14 [place] gynecological examination [employer] examination Postmenopausal 627.1 Active Jillina Postmenopausal bleeding 12/14 12/14 [place] bleeding [employer] Screening for V76.51 Active Ismael Coyne Screening for malignant 12/26 12/26 Amandeep malignant neoplasms of MD neoplasms of colon colon Insomnia, 307.42 Active Indigo 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 [employer] disorder of initiating or maintaining sleep Establish care V68.89 Active Indigo Encounters for or get 01/16 01/18 [place] [employer] other specified acquainted administrative visit purpose ABNORMAL VAGINAL ICD-626.9 Inactive Maite Sanchez BLEEDING PhD SCABIES ICD-133.0 Inactive Maite Sanchez PhD OTH GENERAL ICD-V70.3 Inactive Maite Sanchez MEDICAL MD PhD EXAMINATION ADMIN PURPOSES OTHER ABNORMAL ICD-790.29 Inactive Maite Sanchez GLUCOSE PhD ACUTE BRONCHITIS ICD-466.0 Inactive Maite Sanchez PhD Sinusitis, ICD-461.1 Inactive Ismael Coyne frontal, acute Amandeep ONEAL Laryngitis, ICD-464.00 Inactive Ismael Coyne acute Amandeep ONEAL Medication List Medication Instructions Start Stop Generic NDC Status Provider Patient Date Date Name Instruction JANUVIA 100 1 tablet by SITAGLIPTIN 35568699071 Active Indigo Active MG TABS mouth daily PHOSPHATE [place] [employer] METFORMIN 2 tablets METFORMIN HCL 82280037508 Active Indigo Active HCL 500 MG by mouth [employer] TB24 twice daily [employer] TRAMADOL HCL 1/2 po tid 2 TRAMADOL HCL 86800809316 No Jillina Active 50 MG TABS with ES 0 Longer [place] Tylenol prn 1 Active [employer] pain 5 / 0 2 VYVANSE 20 1 tablet 2 LISDEXAMFETAMIN 03026234236 No Jillina Active MG ORAL CAPS daily for 0 E DIMESYLATE Longer [place] binge 1 Active [employer] eating 5 disorder / 0 2 LASIX 20 MG 2 tablet by FUROSEMIDE 35820652955 Active Joseph W Active TAB mouth daily Farooq DO CELEBREX 200 1 tablet by CELECOXIB 68534215703 Active Joseph W Active MG CAPS mouth daily Farooq DO with meals PREDNISONE 2 tablets 2 PREDNISONE 39461448389 No Joseph W Active 20 MG TAB today, then 0 Longer Farooq DO 1 tablet 1 Active days 2-4 5 / 0 4 / 3 DIFLUCAN 100 1 tablet by 2 FLUCONAZOLE 68960626935 No Joseph W Active MG TAB mouth daily 0 Longer Farooq DO x 3 days 1 Active 5 / 0 4 / 3 AMARYL 1 MG 1 tablet GLIMEPIRIDE 26700650430 Active Joseph W Active ORAL TABS orally Farooq DO twice daily DIFLUCAN 100 1 tablet by 2 FLUCONAZOLE 87801928076 No Joseph W Active MG TABS mouth every 0 Longer Farooq DO other day 1 Active for 2 doses 5 / 0 1 / 2 3 ZOFRAN 4 MG 1 po q6hr ONDANSETRON HCL 37361121746 Active Joseph Pineda Active TABS PRN Nausea Farooq DO PREDNISONE 2 tabs 2 PREDNISONE 96055882369 No Joseph W Active 20 MG TAB daily for 3 0 Longer Farooq DO days, 1 tab 1 Active daily for 3 4 days, 1/2 / tab daily 1 for 2 days 0 / 2 5 AMOXICILLIN 2 po BID x 2 AMOXICILLIN 88640658578 No Maite C Active 500 MG CAPS 10 days 0 Longer Madril 1 Active PhD 0 / 2 0 LISINOPRIL 1 tablet by 2 LISINOPRIL 68507671978 No Maite C Active 20 MG TABS mouth 0 Longer Madril daily 1 Active PhD 0 0 POTASSIUM 2 capsule 2 POTASSIUM 75317885483 No Joseph Pineda Active CHLORIDE CR by mouth 0 CHLORIDE Longer 10 MEQ CPCR daily 1 Active 4 / 0 8 / 2 9 SPIRONOLACTO 1 tablet by 2 SPIRONOLACTONE 85855725618 No Joseph Pineda Active NE 25 MG TAB mouth daily 0 Longer Farooq 1 Active 4 / 0 8 / 2 9 METFORMIN 1 tablet 2 METFORMIN HCL 64444794319 No Joseph Pineda Active HCL 500 MG by mouth 0 Longer [facility] TABS twice daily 1 Active 4 / 0 8 / 2 9 AMARYL 1 MG 1 tab twice 2 GLIMEPIRIDE 83141927840 No Joseph Pineda Active TABS daily 0 Longer Farooq 1 Active 4 / 0 8 / 2 9 PHENTERMINE 1 po q am 2 PHENTERMINE HCL 65702505041 No Joseph Pineda Active HCL 37.5 MG for wt. 0 Longer Farooq DO TABS loss 1 Active 3 / 1 2 / 2 3 PROMETHAZINE 1 tab by 2 PROMETHAZINE 26587264616 No Joseph W Active HCL 25 MG mouth every 0 HCL Longer [facility] TABS 6 hours as 1 Active needed 3 / 0 9 / 0 9 CIPROFLOXACI Take one 2 CIPROFLOXACIN 90953993934 No Joseph W Active N HCL 500 MG (1) tablet 0 HCL Longer Farooq DO TABS by mouth 1 Active twice a day 3 / 0 9 / 0 9 ABILIFY 5 MG one p.o. q. 2 ARIPIPRAZOLE 37500755706 No Joseph W Active TABS day 0 Longer Farooq DO 1 Active 3 / 0 9 / 0 9 HYDROCHLOROT 2 tabs 2 HYDROCHLOROTHIA 56687617522 No Joseph W Active HIAZIDE 25 every 0 ZIDE Longer Farooq DO MG TABS morning 1 Active 3 / 0 6 / 2 7 ABILIFY 2 MG 1 po q hs 2 ARIPIPRAZOLE 95195764129 No Joseph W Active TABS for major 0 Longer Farooq depression 1 Active 3 / 0 5 / 0 7 ADIPEX-P 1/2 tab po 2 PHENTERMINE HCL 36679276516 No Casey Active 37.5 MG CAPS q am for 0 Longer Spray weight loss 1 Active PA 3 / 0 5 / 0 1 CIPRO 500 MG 1 tablet by 2 CIPROFLOXACIN 49190058969 No Casey Active TAB mouth twice 0 HCL Longer Spray daily 1 Active PA 3 / 0 5 / 0 1 NECON 35 1 po daily 2 NORETHINDRONE-E 61308329420 No Casey Active () -35 0 ESTRADIOL Longer Spray MG-MCG TABS 1 Active PA 3 / 0 5 / 0 1 TRAMADOL HCL 1 po tid 2 TRAMADOL HCL 72208720081 No Casey Active 50 MG TABS with ES 0 Longer Spray Tylenol 1 Active PA 3 / 0 5 / 0 1 FLUCONAZOLE one p.o. q. 2 FLUCONAZOLE 39193410227 No Casey Active 100 MG TABS day 2 days 0 Longer Leonarda 1 Active PA 3 / 0 5 / 0 1 POTASSIUM 1 capsule 2 POTASSIUM 73856429621 No Casey Active CHLORIDE CR by mouth 0 CHLORIDE Longer 10 MEQ CPCR daily 1 Active PA 3 / 0 5 / 0 1 IMIPRAMINE Take 6 IMIPRAMINE HCL 61606761756 Active Joseph W Active HCL 50 MG tablets by [facility] TABS mouth at bedtime DIFLUCAN 100 1 tablet by 2 FLUCONAZOLE 53236712929 No Joseph W Active MG TAB mouth daily 0 Longer Farooq DO 1 Active 2 / 0 2 / 2 4 METOPROLOL 1/2 tab po METOPROLOL 24662098651 Active Joseph W Active TARTRATE 25 bid TARTRATE Farooq DO MG TABS VERAPAMIL 2 po bid VERAPAMIL HCL 81909790280 Active Joseph W Active HCL CR 120 Farooq DO MG TAB CR PERMETHRIN 5 apply neck 2 PERMETHRIN 94024397521 No Joseph W Active % CREA to toes 0 Longer Farooq DO tonight and 1 Active then rinse 2 off in / morning. 0 repeat at 7 1 days / 2 0 SEROQUEL XR one p.o. q. 2 QUETIAPINE 12629537093 No Joseph W Active 50 MG evening 0 FUMARATE Longer Farooq DO [id number] 1 Active 2 / 0 1 / 2 0 TRAMADOL HCL 1-2 tablets 2 TRAMADOL HCL 52540943827 No Joseph W Active 50 MG TABS every 6-8 0 Longer Farooq DO hours as 1 Active needed for 2 pain / 0 1 / 2 0 ALPRAZOLAM 3 one p.o. ALPRAZOLAM 31162944566 Active Joseph W Active MG [id number] q.h.s. Farooq DO ALPRAZOLAM Take 1 2 ALPRAZOLAM 56505569378 No Joseph W Active XR [id number] tablet by 0 [id number] Longer Farooq DO mouth at 1 Active bedtime 1 / 2 9 DIFLUCAN 100 1 tablet by 2 FLUCONAZOLE 50487182747 No Joseph W Active MG TAB mouth daily 0 Longer Farooq DO 1 Active 0 / 0 6 AMBIEN 10 MG 1 tab by ZOLPIDEM 45120321937 Active Joseph W Active TAB mouth at TARTRATE Farooq DO bedtime as needed for sleep DIFLUCAN 100 1 tablet DIFLUCAN 091051 FLUCONAZOLE Inactive MG TAB by mouth 100 MG TAB daily ALPRAZOLAM Take 1 ALPRAZOLAM ALPRAZOLAM Inactive XR [id number] tablet by XR [id number] mouth at [id number] bedtime TRAMADOL HCL 1-2 TRAMADOL 083930 TRAMADOL HCL Inactive 50 MG TABS tablets HCL 50 MG every 6-8 TABS hours as needed for pain SEROQUEL XR one p.o. SEROQUEL XR QUETIAPINE Inactive 50 MG q. evening 50 MG FUMARATE [id number] PERMETHRIN 5 apply neck PERMETHRIN 221548 PERMETHRIN Inactive % CREA to toes 5 % CREA tonight and then rinse off in morning. repeat at 7 days DIFLUCAN 100 1 tablet DIFLUCAN 706637 FLUCONAZOLE Inactive MG TAB by mouth 100 MG TAB daily POTASSIUM 1 capsule POTASSIUM POTASSIUM Inactive CHLORIDE CR by mouth CHLORIDE CR CHLORIDE 10 MEQ CPCR daily 10 MEQ CPCR FLUCONAZOLE one p.o. FLUCONAZOLE 19760111 FLUCONAZOLE Inactive 100 MG TABS q. day 2 100 MG TABS days TRAMADOL HCL 1 po tid TRAMADOL 439215 TRAMADOL HCL Inactive 50 MG TABS with ES HCL 50 MG Tylenol TABS NECON 1/35 1 po daily NECON 1/35 NORETHINDRONE- Inactive (28) 1-35 (28) 1-35 ETH ESTRADIOL MG-MCG TABS MG-MCG TABS CIPRO 500 MG 1 tablet CIPRO 500 119316 CIPROFLOXACIN Inactive TAB by mouth MG TAB HCL twice daily ADIPEX-P 1/2 tab po ADIPEX-P 921180 PHENTERMINE Inactive 37.5 MG CAPS q am for 37.5 MG HCL weight CAPS loss ABILIFY 2 MG 1 po q hs ABILIFY 2 440044 ARIPIPRAZOLE Inactive TABS for major MG TABS depression HYDROCHLOROT 2 tabs HYDROCHLORO 558232 HYDROCHLOROTHI Inactive HIAZIDE 25 every THIAZIDE 25 AZIDE MG TABS morning MG TABS ABILIFY 5 MG one p.o. ABILIFY 5 911742 ARIPIPRAZOLE Inactive TABS q. day MG TABS CIPROFLOXACI Take one CIPROFLOXAC 422277 CIPROFLOXACIN Inactive N HCL 500 MG (1) tablet IN HCL 500 HCL TABS by mouth MG TABS twice a day PROMETHAZINE 1 tab by PROMETHAZIN 456504 PROMETHAZINE Inactive HCL 25 MG mouth E HCL 25 MG HCL TABS every 6 TABS hours as needed PHENTERMINE 1 po q am PHENTERMINE 283388 PHENTERMINE Inactive HCL 37.5 MG for wt. HCL 37.5 MG HCL TABS loss TABS AMARYL 1 MG 1 tab AMARYL 1 MG 784790 GLIMEPIRIDE Inactive TABS twice TABS daily METFORMIN 1 tablet METFORMIN 135556 METFORMIN HCL Inactive HCL 500 MG by mouth HCL 500 MG TABS twice TABS daily SPIRONOLACTO 1 tablet SPIRONOLACT 634835 SPIRONOLACTONE Inactive NE 25 MG TAB by mouth ONE 25 MG daily TAB POTASSIUM 2 capsule POTASSIUM POTASSIUM Inactive CHLORIDE CR by mouth CHLORIDE CR CHLORIDE 10 MEQ CPCR daily 10 MEQ CPCR LISINOPRIL 1 tablet LISINOPRIL 686057 LISINOPRIL Inactive 20 MG TABS by mouth 20 MG TABS daily DIFLUCAN 100 1 tablet DIFLUCAN 205987 FLUCONAZOLE Inactive MG TABS by mouth 100 MG TABS every other day for 2 doses DIFLUCAN 100 1 tablet DIFLUCAN 357890 FLUCONAZOLE Inactive MG TAB by mouth 100 MG TAB daily x 3 days PREDNISONE 2 tablets PREDNISONE 667895 PREDNISONE Inactive 20 MG TAB today, 20 MG TAB then 1 tablet days 2-4 VYVANSE 20 1 tablet VYVANSE 20 LISDEXAMFETAMI Inactive MG ORAL CAPS daily for MG ORAL NE DIMESYLATE binge CAPS eating disorder TRAMADOL HCL 1/2 po tid TRAMADOL 286996 TRAMADOL HCL Inactive 50 MG TABS with ES HCL 50 MG Tylenol TABS prn pain AMOXICILLIN 2 po BID x AMOXICILLIN 274228 AMOXICILLIN Inactive 500 MG CAPS 10 days 500 MG CAPS PREDNISONE 2 tabs PREDNISONE 295432 PREDNISONE Inactive 20 MG TAB daily for 20 MG TAB 3 days, 1 tab daily for 3 days, 1/2 tab daily for 2 days Vital Signs Date Name Value Unit Range Description blood pressure, diastolic - 8462-4 83 mm[Hg] [...] Name Value Unit Range Description Lab Report: CBC, Comp. Metabolic Panel, [facility]1C - Chemistry sodium, serum 140 mmol/L 566-447 4785/04/13 potassium, serum 3.9 mmol/L 3.5-5.2 chloride, serum [...] 4.3-6.0 Lab Report: CBC, Comp. Metabolic Panel, [facility] - Hematology leukocyte count, blood 7.0 10^3/MM^3 [...] 219 10^3/MM^3 10*3/mm3 142-424 Lab Report: CBC, [facility] - Chemistry hemoglobin A1C, blood, as % of total hemoglobin 6.8 % 4.3-6.0 Lab Report: CBC, [facility] - Hematology leukocyte count, blood 6.0 10^3/MM^3 [...] 198 10^3/MM^3 10*3/mm3 142-424 Lab Report: Chlamydia/GC APTIMA/[id number] - Lab chlamydia DNA probe NOT DETECTED NOT DETECTED Lab Report: Chlamydia/GC APTIMA/[id number] - Microbiology Neisseria gonorrhoeae DNA probe NOT DETECTED NOT DETECTED Lab Report: Comp. Metabolic Panel, Lipid Panel - Chemistry sodium, serum 136 mmol/L 570-147 0894/01/04 carbon dioxide, venous blood 27.0 mmol/L 21.0-32.0 potassium, serum 4.6 mmol/L 3.5-5.2 chloride, serum 98 mmol/L 98-107 blood glucose 174 mg/dL 65-110 urea nitrogen, blood 12 mg/dL 7-18 creatinine, serum 0.78 mg/dL 0.55-1.30 alanine aminotransferase (SGPT), serum 65 U/L 12-78 aspartate aminotransferase (SGOT), serum 34 U/L 15-37 calcium, serum 8.9 mg/dL 8.5-10.1 bilirubin, serum, total 0.40 mg/dL 0.00-1.00 cholesterol, serum 219 mg/dL 482-467 4064/01/04 triglyceride, serum, fasting 214 mg/dL 30-200 HDL [...] mg/g mg/g{creat} 0-29 sodium, serum 140 mmol/L 610-678 4190/07/21 potassium, serum 3.9 mmol/L 3.5-5.2 chloride, serum [...] 11.6-14.8 platelet count 234 10^3/MM^3 10*3/mm3 142-424 Encounters Code Encounter Date Provider Facility CPT-02568 Level 3 Est. Patient Indigo Sexton ALEJANDRO [facility] 18:59:38 CDT CPT-88452 Level 3 Est. Patient Joseph Pineda [facility] 14:42:12 CDT -[facility] CPT-44057 Level 3 Est. Patient Joseph Pineda [facility] 22:18:20 CDT -[facility] CPT-60784 Level 3 Est. Patient Joseph Pineda [facility] 16:46:04 CDT -[facility]HC CPT-40140 Level 3 Est. Patient Joseph Trivedi [facility] 15:39:53 CDT -[facility] CPT-95688 Level 3 Est. Patient Maite Sanchez MD PhD [facility] 13:33:34 CDT -RHC CPT-75010 Level 3 Est. Patient Joseph Pineda [facility] 11:37:08 CDT -RHC CPT-11350 Level 3 Est. Patient Joseph Pineda [facility] 17:13:29 AIRLINE FLIGHT ATTENDANT -RHC CPT-27362 Level 3 Est. Patient Joseph Edwin [facility] 18:42:44 CDT CPT-91478 Level 3 Est. Patient Joseph Edwin [facility] 16:25:39 CDT CPT-92064 Level 3 Est. Patient Casey Garzaner [facility] 09:52:45 CDT -RHC CPT-53669 Level 3 Est. Patient Joseph Edwin [facility] 11:03:29 AIRLINE FLIGHT ATTENDANT -RHC CPT-74427 Level 3 Est. Patient [place] [facility] 11:03:08 AIRLINE FLIGHT ATTENDANT -RHC CPT-19061 Level 3 Est. Patient [facility] 14:33:31 CDT -[facility]HC CPT-17557 Level 3 Est. Patient [facility] 17:05:02 AIRLINE FLIGHT ATTENDANT -RHC CPT-14282 Level 3 Est. Patient [facility] 17:48:06 AIRLINE FLIGHT ATTENDANT -RHC CPT-37674 Level 3 Est. Patient [facility] 14:59:22 AIRLINE FLIGHT ATTENDANT -RHC CPT-66473 Level 3 Est. Patient [facility] - 21:45:56 AIRLINE FLIGHT ATTENDANT [place] [facility] CPT-03847 Level 3 Est. Patient [facility] 21:29:50 CDT -RHC CPT-05472 Level 3 Est. Patient [facility] 12:41:09 CDT -RHC Procedures Code Procedure Name Date Entry Date Standard Description CPT-OV Office Visit 17:39:05 CDT CPT-OV Office Visit 15:19:50 CDT CPT-41665 Sono transvag pelvis non OB uterus ovaries cervix 18:04:34 CDT CPT-52052 Venipuncture Draw Fee 08:55:49 AIRLINE FLIGHT ATTENDANT
--- OUTSIDE RECORDS SUMMARY | 2016-11-20 13:07 | External Medical Summary | Clinical Summary ---
:1965 Author Organization [facility] [employer] Address [address] [address] Phone Allergies, Adverse Reactions, Alerts Allergy Name Reaction Description Start Date Severity Status Provider VERSED States jsut about Critical Active Gloria Saavedra CLIENT DEVELOPMENT DIRECTOR killed her NKDA Critical Active Indigo Yokum ODD JOB WORKER NKDA Critical No Longer Indigo Yokum ODD JOB WORKER Active NKDA Critical Inactive Adrianna Elder Conditions [...] Resolved Indigo Other malaise 05/24 07/02 Yokum ODD JOB WORKER and fatigue SLEEP APNEA, 327.23 Active Joseph Pineda Obstructive OBSTRUCTIVE, 06/27 06/27 Farooq DO sleep apnea MILD (adult) (pediatric) OVERWEIGHT 278.02 Inactive Joseph Pineda Overweight 06/28 06/28 Farooq DO Obesity 278.00 Active Indigo Obesity, 06/28 10/18 Yokum ODD JOB WORKER unspecified OTH GENERAL V70.3 Resolved Maite Gutierrez Other general MEDICAL Laura ONEAL medical EXAMINATION PhD examination for ADMIN administrative PURPOSES purposes OTHER 790.29 Resolved Maite C Other abnormal ABNORMAL 05/20 Laura ONEAL glucose GLUCOSE PhD ACUTE 466.0 Resolved Maite Gutierrez Acute bronchitis BRONCHITIS 09/02 Laura ONEAL PhD DEPENDENT 782.3 Resolved Indigo Edema EDEMA, LEGS, 10/29 10/18 Yokum ODD JOB WORKER BILATERAL HYPOKALEMIA, 276.8 Resolved Indigo Hypopotassemia MILD 10/29 07/02 Yokum ODD JOB WORKER Diabetes, 250.00 Inactive Joseph Pineda Diabetes Type 2 06/27 06/27 Farooq DO mellitus without mention of complication, type II or unspecified type, not stated as uncontrolled Diabetes 250.02 Resolved Indigo Diabetes mellitus, 06/27 10/18 Yokum ODD JOB WORKER mellitus without type II, mention of uncontrolled [...] Resolved Indigo Routine gynecological 12/14 07/02 Yokum ODD JOB WORKER gynecological examination examination Postmenopausa 627.1 Resolved Indigo Postmenopausal l bleeding 12/14 07/02 Yokum ODD JOB WORKER bleeding Screening for V76.51 Resolved Indigo Screening for malignant 12/26 07/02 Yokum ODD JOB WORKER malignant neoplasms of neoplasms of colon colon Insomnia, 307.42 Active Indigo 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 WORKER disorder of initiating or maintaining sleep Establish V68.89 Resolved Indigo Encounters for care or get 01/16 07/02 Yokum ODD JOB WORKER other specified acquainted administrative visit purpose Weakness, 342.90 Resolved Indigo Hemiplegia, left side of 06/20 10/18 Yokum ODD JOB WORKER unspecified, body affecting unspecified side TIA 435.9 Active Indigo Unspecified 06/20 07/02 Yokum ODD JOB WORKER transient cerebral ischemia Knee pain, 719.46 Active Indigo Pain in joint bilateral 06/20 10/18 Yokum ODD JOB WORKER involving lower leg Bronchitis 490 Resolved Indigo Bronchitis, not 07/23 10/18 Yokum ODD JOB WORKER specified as acute or chronic Diabetes 357.2 Active Maliheh Polyneuropathy mellitus, 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 NAVAL DESIGNER 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 y Knee pain, 719.46 Active Indigo Pain in joint right 06/20 10/18 Yokum ODD JOB WORKER involving lower leg Jesi 112.3 Active Indigo Candidiasis of intertrigo 10/09 10/18 Yokum ODD JOB WORKER skin and nails Hyperlipidemi 272.4 Active Anne Other and a 12/24 12/24 Neil unspecified RMA hyperlipidemia Incontinence, 788.33 Active Indigo Mixed mixed, 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 ODD JOB WORKER incontinence urge/stress (female) (male) Female stress 625.6 Active Yury Monaco Stress incontinence 01/03 01/03 Cy patel MD female Vaginal odor 623.8 Active Gloria Other specified 05/28 05/28 Naff CLIENT DEVELOPMENT DIRECTOR noninflammatory disorders of vagina Urinary tract 599.0 Active Indigo Urinary tract infection 05/28 05/28 Yokum ODD JOB WORKER infection, site not specified ABNORMAL VAGINAL ICD-626.9 Inactive Maite Sanchez BLEEDING PhD SCABIES ICD-133.0 Inactive Maite Sanchez PhD FATIGUE ICD-780.79 Inactive Indigo Yokum ODD JOB WORKER OTH GENERAL ICD-V70.3 Inactive Maite Sanchez MEDICAL MD PhD EXAMINATION ADMIN PURPOSES OTHER ABNORMAL ICD-790.29 Inactive Maite Sanchez GLUCOSE PhD ACUTE BRONCHITIS ICD-466.0 Inactive Maite Sanchez PhD DEPENDENT EDEMA, ICD-782.3 Inactive Indigo Yokum LEGS, BILATERAL ODD JOB WORKER HYPOKALEMIA, MILD ICD-276.8 Inactive Indigo Yokum ODD JOB WORKER Diabetes mellitus, ICD-250.02 Inactive Indigo Yokum type II, ODD JOB WORKER uncontrolled Sinusitis, ICD-461.1 Inactive Ismael Coyne frontal, acute Amandeep ONEAL Laryngitis, acute ICD-464.00 Inactive Ismael Coyne Amandeep ONEAL Routine ICD-V72.31 Inactive Indigo Yokum gynecological ODD JOB WORKER examination Postmenopausal ICD-627.1 Inactive Indigo Yokum 2015 bleeding ODD JOB WORKER Screening for ICD-V76.51 Inactive Indigo Yokum 2015 malignant ODD JOB WORKER neoplasms of colon Establish care or ICD-V68.89 Inactive Indigo Yokum get acquainted ODD JOB WORKER visit Weakness, left ICD-342.90 Inactive Indigo Yokum side of body ODD JOB WORKER Bronchitis ICD-490 Inactive Indigo Yokum ODD JOB WORKER Medication List Medication Instructions Start Stop Generic NDC Status Provider Patient Date Date Name Instruction CIPRO 1 tablet CIPROFLOXACIN 59460826655 Active Indigo Active 250 MG by mouth HCL Yokum TAB twice ODD JOB WORKER daily METFORM 2 METFORMIN HCL 91047543524 No Indigo Active IN HCL tablets Longer Yokum 500 MG by mouth Active ODD JOB WORKER TB24 twice daily AMARYL 1 tablet GLIMEPIRIDE 32262643232 No Indigo Active 1 MG orally Longer Yokum ORAL twice Active ODD JOB WORKER TABS daily NYSTATI apply to NYSTATIN 60288872080 Active Indigo Active N rash TID Yokum 307305 PRN ODD JOB WORKER UNIT/GM CREA TROKEND 2 tab TOPIRAMATE 69765472375 Active Malihe Active I XR daily h 100 MG Ziglar ORAL i NAVAL DESIGNER [id number] AP METOPRO 1 tab po METOPROLOL 85367069289 Active Indigo Active LOL bid TARTRATE Yokum TARTRAT ODD JOB WORKER E 25 MG TABS AZITHRO 2 po qd AZITHROMYCIN 13431513042 No Jillin Active MYCIN x 1 day, Longer a 250 MG then 1 Active Frazel TABS po qd x l ODD JOB WORKER 4 days PREDNIS 2 pills PREDNISONE 77905393218 No Jillin Active ONE 20 daily x Longer a MG TAB 4 days Active Frazel l ODD JOB WORKER PIOGLIT take one PIOGLITAZONE 58960776040 Active Malihe Active AZONE a day HCL h HCL 30 Ziglar MG ORAL i NAVAL DESIGNER TABS JANUVIA 1 tablet SITAGLIPTIN 54414676625 No Indigo Active 100 MG by mouth PHOSPHATE Longer Yokum TABS daily Active ODD JOB WORKER ATORVAS 1 pill ATORVASTATIN 97189445048 Active Indigo Active TATIN by mouth CALCIUM Yokum CALCIUM nightly, ODD JOB WORKER 10 MG for TABS choleste rol ASPIRIN 1 po qd ASPIRIN 40922656971 Active Indigo Active 81 MG Yokum ORAL ODD JOB WORKER TABS NITROFU One NITROFURANTOIN 82582698680 No Indigo Active RANTOIN capsule MONOHYD MACRO Longer Yokum MONOHYD BID for Active ODD JOB WORKER MACRO UTI 100 MG CAPS TRAMADO 1/2 po TRAMADOL HCL 20522320221 No Jillin Active L HCL tid with Longer a 50 MG ES Active Frazel TABS Tylenol l ODD JOB WORKER prn pain VYVANSE 1 tablet LISDEXAMFETAMIN 28147471070 No Jillin Active 20 MG daily E DIMESYLATE Longer a ORAL for Active Frazel CAPS binge l ODD JOB WORKER eating disorder LASIX 2 tablet FUROSEMIDE 51553262846 Active Indigo Active 20 MG by mouth Yokum TAB daily ODD JOB WORKER CELEBRE 1 tablet CELECOXIB 22598271735 Active Indigo Active X 200 by mouth Yokum MG CAPS daily ODD JOB WORKER with meals PREDNIS 2 PREDNISONE 03060111508 No Joseph Active ONE 20 tablets Longer W Farooq MG TAB today, Active DO then 1 tablet days 2-4 DIFLUCA 1 tablet FLUCONAZOLE 26336269198 No Joseph Active N 100 by mouth Longer W Farooq MG TAB daily x Active DO 3 days DIFLUCA 1 tablet FLUCONAZOLE 36799471400 No Joseph Active N 100 by mouth Longer W Farooq MG TABS every Active DO other day for 2 doses ZOFRAN 1 po ONDANSETRON HCL 64749684212 Active Joseph Active 4 MG q6hr PRN W Farooq TABS Nausea DO PREDNIS 2 tabs PREDNISONE 48735594427 No Joseph Active ONE 20 daily Longer W Farooq MG TAB for 3 Active DO days, 1 tab daily for 3 days, 1/2 tab daily for 2 days AMOXICI 2 po BID AMOXICILLIN 88932131474 No Maite C Active LLIN x 10 Longer Madril 500 MG days Active PhD CAPS LISINOP 1 tablet LISINOPRIL 33204033968 No Maite C Active RIL 20 by mouth Longer Madril MG TABS daily Active PhD POTASSI 2 POTASSIUM 01913565621 No Joseph Active UM capsule CHLORIDE Longer W Farooq CHLORID by mouth Active DO E CR 10 daily MEQ CPCR SPIRONO 1 tablet SPIRONOLACTONE 86136947440 No Joseph Active LACTONE by mouth Longer W Farooq 25 MG daily Active DO TAB METFORM 1 METFORMIN HCL 02890733423 No Joseph Active IN HCL tablet Longer W Farooq 500 MG by mouth Active DO TABS twice daily AMARYL 1 tab GLIMEPIRIDE 06870260072 No Joseph Active 1 MG twice Longer W Farooq TABS daily Active DO PHENTER 1 po q PHENTERMINE HCL 17714696229 No Joseph Active MINE am for Longer W Farooq HCL wt. loss Active DO 37.5 MG TABS PROMETH 1 tab by PROMETHAZINE 88632484162 No Joseph Active AZINE mouth HCL Longer W Farooq HCL 25 every 6 Active DO MG TABS hours as needed CIPROFL Take one CIPROFLOXACIN 53796301287 No Joseph Active OXACIN (1) HCL Longer W Farooq HCL 500 tablet Active DO MG TABS by mouth twice a day ABILIFY one p.o. ARIPIPRAZOLE 76025679715 No Joseph Active 5 MG q. day Longer W Farooq TABS Active DO HYDROCH 2 tabs HYDROCHLOROTHIA 45624361487 No Joseph Active LOROTHI every ZIDE Longer W Farooq AZIDE morning Active DO 25 MG TABS ABILIFY 1 po q ARIPIPRAZOLE 03183452038 No Joseph Active 2 MG hs for Longer W Farooq TABS major Active DO depressi on ADIPEX- 1/2 tab PHENTERMINE HCL 56146546224 No Casey Active P 37.5 po q am Longer Ames MG CAPS for Active PA weight loss CIPRO 1 tablet CIPROFLOXACIN 62832788888 No Casey Active 500 MG by mouth HCL Longer Ames TAB twice Active PA daily NECON 1 po NORETHINDRONE-E 47547131875 No Casey Active 1/35 daily TH ESTRADIOL Longer Leonarda (28) Active PA 1-35 MG-MCG TABS TRAMADO 1 po tid TRAMADOL HCL 26856464620 No Casey Active L HCL with ES Longer Leonarda 50 MG Tylenol Active PA TABS FLUCONA one p.o. FLUCONAZOLE 48528771924 No Casey Active ZOLE q. day 2 Longer Ames 100 MG days Active PA TABS POTASSI 1 POTASSIUM 33321592296 No Casey Active UM capsule CHLORIDE Longer Ames CHLORID by mouth Active PA E CR 10 daily MEQ CPCR IMIPRAM Take 6 IMIPRAMINE HCL 30100717034 Active Indigo Active INE HCL tablets Yokum 50 MG by mouth ODD JOB WORKER TABS at bedtime DIFLUCA 1 tablet FLUCONAZOLE 86492626411 No Joseph Active N 100 by mouth Longer W Farooq MG TAB daily Active DO VERAPAM 2 po bid VERAPAMIL HCL 06696202810 Active Indigo Active IL HCL Yokum CR 120 ODD JOB WORKER MG TAB CR PERMETH apply PERMETHRIN 54627640750 No Joseph Active RIN 5 % neck to Longer W Farooq CREA toes Active DO tonight and then rinse off in morning. repeat at 7 days SEROQUE one p.o. QUETIAPINE 13232804622 No Joseph Active L XR 50 q. FUMARATE Longer W Farooq MG evening Active DO [id number] AB TRAMADO 1-2 TRAMADOL HCL 82370519912 No Joseph Active L HCL tablets Longer W Farooq 50 MG every Active DO TABS 6-8 hours as needed for pain ALPRAZO one p.o. ALPRAZOLAM 03504146596 Active Indigo Active HARDING 3 q.h.s. Yokum MG ODD JOB WORKER [id number] AB ALPRAZO Take 1 ALPRAZOLAM 15345733897 No Joseph Active HARDING XR tablet [id number] Longer W Farooq [id number] by mouth Active DO AB at bedtime DIFLUCA 1 tablet FLUCONAZOLE 59302202256 No Joseph Active N 100 by mouth Longer W Farooq MG TAB daily Active DO AMBIEN 1 tab by ZOLPIDEM 90832693730 Active Indigo Active 10 MG mouth at TARTRATE Yokum TAB bedtime ODD JOB WORKER as needed for sleep DIFLUCAN 100 1 tablet DIFLUCAN 19760111 FLUCONAZOLE Inactive MG TAB by mouth 100 MG TAB daily ALPRAZOLAM Take 1 ALPRAZOLAM ALPRAZOLAM Inactive XR [id number] tablet by XR [id number] mouth at [id number] bedtime TRAMADOL HCL 1-2 TRAMADOL 614861 TRAMADOL HCL Inactive 50 MG TABS tablets HCL 50 MG every 6-8 TABS hours as needed for pain SEROQUEL XR one p.o. SEROQUEL XR QUETIAPINE Inactive 50 MG q. 50 MG FUMARATE [id number] evening [id number] PERMETHRIN 5 apply PERMETHRIN 718931 PERMETHRIN Inactive % CREA neck to 5 % CREA toes tonight and then rinse off in morning. repeat at 7 days DIFLUCAN 100 1 tablet DIFLUCAN 19760111 FLUCONAZOLE Inactive MG TAB by mouth 100 MG TAB daily POTASSIUM 1 capsule POTASSIUM POTASSIUM Inactive CHLORIDE CR by mouth CHLORIDE CR CHLORIDE 10 MEQ CPCR daily 10 MEQ CPCR FLUCONAZOLE one p.o. FLUCONAZOLE 483999 FLUCONAZOLE Inactive 100 MG TABS q. day 2 100 MG TABS days TRAMADOL HCL 1 po tid TRAMADOL 525321 TRAMADOL HCL Inactive 50 MG TABS with ES HCL 50 MG Tylenol TABS NECON 1/35 1 po NECON 1/35 NORETHINDRONE- Inactive (28) 1-35 daily (28) 1-35 ETH ESTRADIOL MG-MCG TABS MG-MCG TABS CIPRO 500 MG 1 tablet CIPRO 500 497602 CIPROFLOXACIN Inactive TAB by mouth MG TAB HCL twice daily ADIPEX-P 1/2 tab ADIPEX-P 621668 PHENTERMINE Inactive 37.5 MG CAPS po q am 37.5 MG HCL for CAPS weight loss ABILIFY 2 MG 1 po q hs ABILIFY 2 711583 ARIPIPRAZOLE Inactive TABS for major MG TABS depressio n HYDROCHLOROT 2 tabs HYDROCHLORO 475533 HYDROCHLOROTHI Inactive HIAZIDE 25 every THIAZIDE 25 AZIDE MG TABS morning MG TABS ABILIFY 5 MG one p.o. ABILIFY 5 495890 ARIPIPRAZOLE Inactive TABS q. day MG TABS CIPROFLOXACI Take one CIPROFLOXAC 433437 CIPROFLOXACIN Inactive N HCL 500 MG (1) IN HCL 500 HCL TABS tablet by MG TABS mouth twice a day PROMETHAZINE 1 tab by PROMETHAZIN 535300 PROMETHAZINE Inactive HCL 25 MG mouth E HCL 25 MG HCL TABS every 6 TABS hours as needed PHENTERMINE 1 po q am PHENTERMINE 842774 PHENTERMINE Inactive HCL 37.5 MG for wt. HCL 37.5 MG HCL TABS loss TABS AMARYL 1 MG 1 tab AMARYL 1 MG 538851 GLIMEPIRIDE Inactive TABS twice TABS daily METFORMIN 1 tablet METFORMIN 504142 METFORMIN HCL Inactive HCL 500 MG by mouth HCL 500 MG TABS twice TABS daily SPIRONOLACTO 1 tablet SPIRONOLACT 307411 SPIRONOLACTONE Inactive NE 25 MG TAB by mouth ONE 25 MG daily TAB POTASSIUM 2 capsule POTASSIUM POTASSIUM Inactive CHLORIDE CR by mouth CHLORIDE CR CHLORIDE 10 MEQ CPCR daily 10 MEQ CPCR LISINOPRIL 1 tablet LISINOPRIL 118965 LISINOPRIL Inactive 20 MG TABS by mouth 20 MG TABS daily DIFLUCAN 100 1 tablet DIFLUCAN 516466 FLUCONAZOLE Inactive MG TABS by mouth 100 MG TABS every other day for 2 doses DIFLUCAN 100 1 tablet DIFLUCAN 075219 FLUCONAZOLE Inactive MG TAB by mouth 100 MG TAB daily x 3 days PREDNISONE 2 tablets PREDNISONE 898681 PREDNISONE Inactive 20 MG TAB today, 20 MG TAB then 1 tablet days 2-4 VYVANSE 20 1 tablet VYVANSE 20 LISDEXAMFETAMI Inactive MG ORAL CAPS daily for MG ORAL NE DIMESYLATE binge CAPS eating disorder TRAMADOL HCL 1/2 po TRAMADOL 707666 TRAMADOL HCL Inactive 50 MG TABS tid with HCL 50 MG ES TABS Tylenol prn pain JANUVIA 100 1 tablet JANUVIA 100 SITAGLIPTIN Inactive MG TABS by mouth MG TABS PHOSPHATE daily AMARYL 1 MG 1 tablet AMARYL 1 MG 236169 GLIMEPIRIDE Inactive ORAL TABS orally ORAL TABS twice daily METFORMIN 2 tablets METFORMIN METFORMIN HCL Inactive HCL 500 MG by mouth HCL 500 MG TB24 twice TB24 daily AMOXICILLIN 2 po BID AMOXICILLIN 135579 AMOXICILLIN Inactive 500 MG CAPS x 10 days 500 MG CAPS PREDNISONE 2 tabs PREDNISONE 599360 PREDNISONE Inactive 20 MG TAB daily for 20 MG TAB 3 days, 1 tab daily for 3 days, 1/2 tab daily for 2 days NITROFURANTO One NITROFURANT 3611497 NITROFURANTOIN Inactive IN MONOHYD capsule OIN MONOHYD MONOHYD MACRO MACRO 100 MG BID for MACRO 100 CAPS UTI MG CAPS PREDNISONE 2 pills PREDNISONE 060867 PREDNISONE Inactive 20 MG TAB daily x 4 20 MG TAB days AZITHROMYCIN 2 po qd x AZITHROMYCI 7005649 AZITHROMYCIN Inactive 250 MG TABS 1 day, [...] HGBA1C - Chemistry sodium, serum 140 mmol/L 305-476 1857/06/03 potassium, serum 3.9 mmol/L 3.5-5.2 chloride, serum [...] count 214 10^3/MM^3 10*3/mm3 142-424 Lab Report: Lipid Panel - Chemistry cholesterol, serum 157 mg/dL 217-415 4870/08/22 triglyceride, serum, fasting 215 mg/dL 30-200 HDL [...] mg/dL Encounters Code Encounter Date Provider Facility CPT-48977 Level 4 New Patient Yury Benoit MD [facility] 15:17:12 CDT CPT-28271 Level 3 Est. Patient [facility] - 13:37:46 CDT [place] CPT-23036 Level 4 Est. Patient [facility] - 10:01:06 CDT [place] CPT-90953 Level 3 Est. Patient [facility] 08:58:07 CDT NAVAL DESIGNER CPT-69753 Level 3 Est. Patient Sharmiladorothy Marino [facility] 14:40:56 CDT ODD JOB WORKER CPT-49646 Level 4 Est. Patient [facility] 17:29:53 ASSISTANT PROFESSOR OF MUSIC NAVAL DESIGNER CPT-36831 Level 4 Est. Patient [facility] 09:51:54 ASSISTANT PROFESSOR OF MUSIC CPT-06162 Level 3 Est. Patient [facility] 18:59:38 CDT CPT-87962 Level 3 Est. Patient Joseph [facility] 14:42:12 CDT -[facility] CPT-02441 Level 3 Est. Patient [facility] 22:18:20 CDT -[facility] CPT-04570 Level 3 Est. Patient Joseph Pineda [facility] 16:46:04 CDT -[facility] CPT-26836 Level 3 Est. Patient Joseph Pineda [facility] 15:39:53 CDT -[facility] CPT-09680 Level 3 Est. Patient Maite Sanchez MD PhD [facility] 13:33:34 CDT -[facility] CPT-94056 Level 3 Est. Patient Joseph Pineda [facility] 11:37:08 CDT -[facility] CPT-79350 Level 3 Est. Patient Joseph Pineda [facility] 17:13:29 ASSISTANT PROFESSOR OF MUSIC -[facility] CPT-57856 Level 3 Est. Patient Joseph Trivedi [facility] 18:42:44 CDT CPT-89914 Level 3 Est. Patient Joseph Trivedi [facility] 16:25:39 CDT CPT-55001 Level 3 Est. Patient Casey Brower [facility] 09:52:45 CDT -R[facility] CPT-75718 Level 3 Est. Patient Joseph Trivedi [facility] 11:03:29 ASSISTANT PROFESSOR OF MUSIC -[facility] CPT-76644 Level 3 Est. Patient Joseph Pineda [facility] 11:03:08 ASSISTANT PROFESSOR OF MUSIC -[facility] CPT-59379 Level 3 Est. Patient Joseph Trivedi [facility] 14:33:31 CDT -R[facility] CPT-10959 Level 3 Est. Patient Joseph Pineda [facility] 17:05:02 ASSISTANT PROFESSOR OF MUSIC -[facility] CPT-82936 Level 3 Est. Patient Joseph Pineda [facility] 17:48:06 ASSISTANT PROFESSOR OF MUSIC -[facility] CPT-96376 Level 3 Est. Patient Joseph Pineda [facility] 14:59:22 ASSISTANT PROFESSOR OF MUSIC -[facility]HC CPT-86620 Level 3 Est. Patient Joseph Pineda [facility] - 21:45:56 ASSISTANT PROFESSOR OF MUSIC [place] [facility] CPT-87037 Level 3 Est. Patient Joseph Pineda [facility] 21:29:50 CDT -RHC CPT-67050 Level 3 Est. Patient Joseph Pineda [facility] 12:41:09 CDT -[facility] Procedures Code Procedure Name Date Entry Date Standard Description CPT-60600 [place] - LAB USE ONLY 12:39:03 ASSISTANT PROFESSOR OF MUSIC CPT-57875 Vaginal Culture - LAB USE ONLY 12:39:03 ASSISTANT PROFESSOR OF MUSIC CPT-39883 Urine Culture - LAB USE ONLY 11:52:44 ASSISTANT PROFESSOR OF MUSIC CPT-12514 UA w micro - LAB USE ONLY 11:52:44 ASSISTANT PROFESSOR OF MUSIC CPT-29405 Postop F/U Visit 12:08:35 CDT CPT-92708 Postop F/U Visit 18:20:10 CDT CPT-A4351 [facility] Female Cath 09:37:10 CDT CPT-57304 Urine Dip (Floor Use Only) 15:17:13 CDT CPT-59640 Dil F ureth int 15:17:13 CDT CPT-99963 Venipuncture Draw Fee 09:19:08 CDT CPT-24786 Lipid - LAB USE ONLY 09:19:07 CDT CPT-JTINJ Asp/Joint Injection 09:26:49 CDT CPT-60078 Chest 2V Frontal and Lat 14:47:43 CDT CPT-JTINJ Asp/Joint Injection 09:51:53 ASSISTANT PROFESSOR OF MUSIC CPT-OV Office Visit 17:39:05 CDT CPT-OV Office Visit 15:19:50 CDT CPT-27658 Sono transvag pelvis non OB uterus ovaries cervix 18:04:34 CDT CPT-12393 Venipuncture Draw Fee 08:55:49 ASSISTANT PROFESSOR OF MUSIC
--- OUTSIDE RECORDS SUMMARY | 2016-11-20 13:08 | External Medical Summary | Clinical Summary ---
:1965 Author Organization [facility] [employer] in [employer] Address [address] [address] Phone Allergies, Adverse Reactions, Alerts Allergy Name Reaction Description Start Date Severity Status Provider VERSED States jsut about Critical Active Gloria Saavedra RUBBER TILE FLOOR LAYER killed her NKDA Critical Active Indigo Yokum ENVIRONMENTAL EDUCATOR NKDA Critical No Longer Indigo Yokum ENVIRONMENTAL EDUCATOR Active NKDA Critical Inactive Adrianna Elder Conditions [...] Resolved Indigo Other malaise 05/24 07/02 Yokum ENVIRONMENTAL EDUCATOR and fatigue SLEEP APNEA, 327.23 Active Joseph Pineda Obstructive OBSTRUCTIVE, 06/27 06/27 Farooq DO sleep apnea MILD (adult) (pediatric) OVERWEIGHT 278.02 Inactive Joseph Pineda Overweight 06/28 06/28 Farooq DO Obesity 278.00 Active Indigo Obesity, 06/28 10/18 Yokum ENVIRONMENTAL EDUCATOR unspecified OTH GENERAL V70.3 Resolved Maite Gutierrez Other general MEDICAL Laura ONEAL medical EXAMINATION PhD examination for ADMIN administrative PURPOSES purposes OTHER 790.29 Resolved Maite C Other abnormal ABNORMAL 05/20 Laura ONEAL glucose GLUCOSE PhD ACUTE 466.0 Resolved Maite Gutierrez Acute bronchitis BRONCHITIS 09/02 Laura ONEAL PhD DEPENDENT 782.3 Resolved Indigo Edema EDEMA, LEGS, 10/29 10/18 Yokum ENVIRONMENTAL EDUCATOR BILATERAL HYPOKALEMIA, 276.8 Resolved Indigo Hypopotassemia MILD 10/29 07/02 Yokum ENVIRONMENTAL EDUCATOR Diabetes, 250.00 Inactive Joseph Pineda Diabetes Type 2 06/27 06/27 Farooq DO mellitus without mention of complication, type II or unspecified type, not stated as uncontrolled Diabetes 250.02 Resolved Indigo Diabetes mellitus, 06/27 10/18 Yokum ENVIRONMENTAL EDUCATOR mellitus without type II, mention of uncontrolled [...] Resolved Indigo Routine gynecological 12/14 07/02 Yokum ENVIRONMENTAL EDUCATOR gynecological examination examination Postmenopausa 627.1 Resolved Indigo Postmenopausal l bleeding 12/14 07/02 Yokum ENVIRONMENTAL EDUCATOR bleeding Screening for V76.51 Resolved Indigo Screening for malignant 12/26 07/02 Yokum ENVIRONMENTAL EDUCATOR malignant neoplasms of neoplasms of colon colon Insomnia, 307.42 Active Indigo 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 ENVIRONMENTAL EDUCATOR disorder of initiating or maintaining sleep Establish V68.89 Resolved Indigo Encounters for care or get 01/16 07/02 Yokum ENVIRONMENTAL EDUCATOR other specified acquainted administrative visit purpose Weakness, 342.90 Resolved Indigo Hemiplegia, left side of 06/20 10/18 Yokum ENVIRONMENTAL EDUCATOR unspecified, body affecting unspecified side TIA 435.9 Active Indigo Unspecified 06/20 07/02 Yokum ENVIRONMENTAL EDUCATOR transient cerebral ischemia Knee pain, 719.46 Active Indigo Pain in joint bilateral 06/20 10/18 Yokum ENVIRONMENTAL EDUCATOR involving lower leg Bronchitis 490 Resolved Indigo Bronchitis, not 07/23 10/18 Yokum ENVIRONMENTAL EDUCATOR specified as acute or chronic Diabetes 357.2 Active Maliheh Polyneuropathy mellitus, 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 DISPLAY MANAGER 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 y Knee pain, 719.46 Active Indigo Pain in joint right 06/20 10/18 Yokum ENVIRONMENTAL EDUCATOR involving lower leg Jesi 112.3 Active Indigo Candidiasis of intertrigo 10/09 10/18 Yokum ENVIRONMENTAL EDUCATOR skin and nails Hyperlipidemi 272.4 Active Anne Other and a 12/24 12/24 Neil unspecified RMA hyperlipidemia Incontinence, 788.33 Active Indigo Mixed mixed, 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 ENVIRONMENTAL EDUCATOR incontinence urge/stress (female) (male) Female stress 625.6 Active Yury Monaco Stress incontinence 01/03 01/03 Cy patel MD female Vaginal odor 623.8 Active Gloria Other specified 05/28 05/28 Naff RUBBER TILE FLOOR LAYER noninflammatory disorders of vagina ABNORMAL VAGINAL ICD-626.9 Inactive Maite Sanchez BLEEDING PhD SCABIES ICD-133.0 Inactive Maite Sanchez PhD FATIGUE ICD-780.79 Inactive Indigo Yokum ENVIRONMENTAL EDUCATOR OT GENERAL ICD-V70.3 Inactive Maite Gutierrez Laura MEDICAL MD PhD EXAMINATION ADMIN PURPOSES OTHER ABNORMAL ICD-790.29 Inactive Maite Matt Laura GLUCOSE PhD ACUTE BRONCHITIS ICD-466.0 Inactive Maite Matt Laura PhD DEPENDENT EDEMA, ICD-782.3 Inactive Indigo Yokum LEGS, BILATERAL ENVIRONMENTAL EDUCATOR HYPOKALEMIA, MILD ICD-276.8 Inactive Indigo Yokum ENVIRONMENTAL EDUCATOR Diabetes mellitus, ICD-250.02 Inactive Indigo Yokum type II, ENVIRONMENTAL EDUCATOR uncontrolled Sinusitis, ICD-461.1 Inactive Ismael Coyne frontal, acute Amandeep ONEAL Laryngitis, acute ICD-464.00 Inactive Ismael Coyne Amandeep ONEAL Routine ICD-V72.31 Inactive Indigo Yokum gynecological ENVIRONMENTAL EDUCATOR examination Postmenopausal ICD-627.1 Inactive Indigo Yokum 2015 bleeding ENVIRONMENTAL EDUCATOR Screening for ICD-V76.51 Inactive Indigo Yokum 2015 malignant ENVIRONMENTAL EDUCATOR neoplasms of colon Establish care or ICD-V68.89 Inactive Indigo Yokum get acquainted ENVIRONMENTAL EDUCATOR visit Weakness, left ICD-342.90 Inactive Indigo Yokum side of body ENVIRONMENTAL EDUCATOR Bronchitis ICD-490 Inactive Indigo Yokum ENVIRONMENTAL EDUCATOR Medication List Medication Instructions Start Stop Generic NDC Status Provider Patient Date Date Name Instruction METFORMIN 2 tablets METFORMIN 56743732687 No Indigo Active HCL 500 MG by mouth HCL Longer Yokum TB24 twice Active ENVIRONMENTAL EDUCATOR daily AMARYL 1 MG 1 tablet GLIMEPIRID 46478397213 No Indigo Active ORAL TABS orally E Longer Yokum twice Active ENVIRONMENTAL EDUCATOR daily NYSTATIN apply to NYSTATIN 74868699533 Active Indigo Active 776686 rash TID Yokum UNIT/GM PRN ENVIRONMENTAL EDUCATOR CREA TROKENDI XR 2 tab TOPIRAMATE 37524166967 Active Malihe Active 100 MG ORAL daily h [id number] Ziglar i DISPLAY MANAGER METOPROLOL 1 tab po METOPROLOL 51773472912 Active Indigo Active TARTRATE 25 bid TARTRATE Yokum MG TABS ENVIRONMENTAL EDUCATOR AZITHROMYCI 2 po qd x AZITHROMYC 66261340802 No Jillin Active N 250 MG 1 day, IN Longer a TABS then 1 po Active Frazel qd x 4 l ENVIRONMENTAL EDUCATOR days PREDNISONE 2 pills PREDNISONE 75973375896 No Jillin Active 20 MG TAB daily x 4 Longer a days Active Frazel l ENVIRONMENTAL EDUCATOR PIOGLITAZON take one PIOGLITAZO 66754288734 Active Malihe Active E HCL 30 MG a day NE HCL h ORAL TABS Ziglar i DISPLAY MANAGER JANUVIA 100 1 tablet SITAGLIPTI 57151855794 No Indigo Active MG TABS by mouth N Longer Yokum daily PHOSPHATE Active ENVIRONMENTAL EDUCATOR ATORVASTATI 1 pill by ATORVASTAT 08726004537 Active Indigo Active N CALCIUM mouth IN CALCIUM Yokum 10 MG TABS nightly, ENVIRONMENTAL EDUCATOR for cholester ol ASPIRIN 81 1 po qd ASPIRIN 56602419946 Active Indigo Active MG ORAL Yokum TABS ENVIRONMENTAL EDUCATOR NITROFURANT One NITROFURAN 42169174530 No Indigo Active OIN MONOHYD capsule TOIN Longer Yokum MACRO 100 BID for MONOHYD Active ENVIRONMENTAL EDUCATOR MG CAPS UTI MACRO TRAMADOL 1/2 po TRAMADOL 57303079822 No Jillin Active HCL 50 MG tid with HCL Longer a TABS ES Active Frazel Tylenol l ENVIRONMENTAL EDUCATOR prn pain VYVANSE 20 1 tablet LISDEXAMFE 33923037308 No Jillin Active MG ORAL daily for TAMINE Longer a CAPS binge DIMESYLATE Active Frazel eating l ENVIRONMENTAL EDUCATOR disorder LASIX 20 MG 2 tablet FUROSEMIDE 78154170659 Active Indigo Active TAB by mouth Yokum daily ENVIRONMENTAL EDUCATOR CELEBREX 1 tablet CELECOXIB 07439117411 Active Indigo Active 200 MG CAPS by mouth Yokum daily ENVIRONMENTAL EDUCATOR with meals PREDNISONE 2 tablets PREDNISONE 44757036717 No Joseph Active 20 MG TAB today, Longer W Farooq then 1 Active DO tablet days 2-4 DIFLUCAN 1 tablet FLUCONAZOL 00205936585 No Joseph Active 100 MG TAB by mouth E Longer W Farooq daily x 3 Active DO days DIFLUCAN 1 tablet FLUCONAZOL 05275881385 No Joseph Active 100 MG TABS by mouth E Longer W Farooq every Active DO other day for 2 doses ZOFRAN 4 MG 1 po q6hr ONDANSETRO 62884219061 Active Joseph Active TABS PRN N HCL W Farooq Nausea DO PREDNISONE 2 tabs PREDNISONE 66125953116 No Joseph Active 20 MG TAB daily for Longer W Farooq 3 days, 1 Active DO tab daily for 3 days, 1/2 tab daily for 2 days AMOXICILLIN 2 po BID AMOXICILLI 87002988764 No Maite C Active 500 MG CAPS x 10 days N Longer Madril Active PhD LISINOPRIL 1 tablet LISINOPRIL 66625421905 No Maite C Active 20 MG TABS by mouth Longer Madril daily Active PhD POTASSIUM 2 capsule POTASSIUM 61883235517 No Joseph Active CHLORIDE CR by mouth CHLORIDE Longer W Farooq 10 MEQ CPCR daily Active DO SPIRONOLACT 1 tablet SPIRONOLAC 70709849546 No Joseph Active ONE 25 MG by mouth TONE Longer W Farooq TAB daily Active DO METFORMIN 1 tablet METFORMIN 36505132214 No Joseph Active HCL 500 MG by mouth HCL Longer W Farooq TABS twice Active DO daily AMARYL 1 MG 1 tab GLIMEPIRID 84683898071 No Joseph Active TABS twice E Longer W Farooq daily Active DO PHENTERMINE 1 po q am PHENTERMIN 15945264844 No Joseph Active HCL 37.5 MG for wt. E HCL Longer W Farooq TABS loss Active DO PROMETHAZIN 1 tab by PROMETHAZI 93550734765 No Joseph Active E HCL 25 MG mouth NE HCL Longer W Farooq TABS every 6 Active DO hours as needed CIPROFLOXAC Take one CIPROFLOXA 62290318192 No Joseph Active IN HCL 500 (1) DELORES HCL Longer W Farooq MG TABS tablet by Active DO mouth twice a day ABILIFY 5 one p.o. ARIPIPRAZO 10283200953 No Joseph Active MG TABS q. day LE Longer W Farooq Active DO HYDROCHLORO 2 tabs HYDROCHLOR 59003144092 No Joseph Active THIAZIDE 25 every OTHIAZIDE Longer W Farooq MG TABS morning Active DO ABILIFY 2 1 po q hs ARIPIPRAZO 07605372900 No Joseph Active MG TABS for major LE Longer W Farooq depressio Active DO n ADIPEX-P 1/2 tab PHENTERMIN 05388422002 No Casey Active 37.5 MG po q am E HCL Longer [place] CAPS for Active PA weight loss CIPRO 500 1 tablet CIPROFLOXA 34909752269 No Casey Active MG TAB by mouth DELORES HCL Longer [place] twice Active PA daily NECON 1/35 1 po NORETHINDR 74989690640 No Casey Active (28) 1-35 daily ONE-ETH Longer Leonarda MG-MCG TABS ESTRADIOL Active PA TRAMADOL 1 po tid TRAMADOL 35789862435 No Casey Active HCL 50 MG with ES HCL Longer [place] TABS Tylenol Active PA FLUCONAZOLE one p.o. FLUCONAZOL 97459633092 No Casey Active 100 MG TABS q. day 2 E Longer [place] days Active PA POTASSIUM 1 capsule POTASSIUM 88671629903 No Casey Active CHLORIDE CR by mouth CHLORIDE Longer [place] 10 MEQ CPCR daily Active PA IMIPRAMINE Take 6 IMIPRAMINE 64070381936 Active Indigo Active HCL 50 MG tablets HCL Yokum TABS by mouth ENVIRONMENTAL EDUCATOR at bedtime DIFLUCAN 1 tablet FLUCONAZOL 04356564075 No Joseph Active 100 MG TAB by mouth E Longer W Farooq daily Active DO VERAPAMIL 2 po bid VERAPAMIL 82195045592 Active Indigo Active HCL CR 120 HCL Yokum MG TAB CR ENVIRONMENTAL EDUCATOR PERMETHRIN apply PERMETHRIN 51309505280 No Joseph Active 5 % CREA neck to Longer W Farooq toes Active DO tonight and then rinse off in morning. repeat at 7 days SEROQUEL XR one p.o. QUETIAPINE 56716167095 No Joseph Active 50 MG q. FUMARATE Longer W Farooq [id number] evening Active DO TRAMADOL 1-2 TRAMADOL 04883102556 No Joseph Active HCL 50 MG tablets HCL Longer W Farooq TABS every 6-8 Active DO hours as needed for pain ALPRAZOLAM one p.o. ALPRAZOLAM 24491539169 Active Indigo Active 3 MG q.h.s. Yokum [id number] ENVIRONMENTAL EDUCATOR ALPRAZOLAM Take 1 ALPRAZOLAM 20545583383 No Joseph Active XR tablet by [id number] Longer W Farooq [id number] mouth at Active DO bedtime DIFLUCAN 1 tablet FLUCONAZOL 73726105734 No Joseph Active 100 MG TAB by mouth E Longer W Farooq daily Active DO AMBIEN 10 1 tab by ZOLPIDEM 83849222083 Active Indigo Active MG TAB mouth at TARTRATE Yokum bedtime ENVIRONMENTAL EDUCATOR as needed for sleep DIFLUCAN 100 1 tablet DIFLUCAN 210462 FLUCONAZOLE Inactive MG TAB by mouth 100 MG TAB daily ALPRAZOLAM Take 1 ALPRAZOLAM ALPRAZOLAM Inactive XR [id number] tablet by XR [id number] mouth at [id number] bedtime TRAMADOL HCL 1-2 TRAMADOL 304075 TRAMADOL HCL Inactive 50 MG TABS tablets HCL 50 MG every 6-8 TABS hours as needed for pain SEROQUEL XR one p.o. SEROQUEL XR QUETIAPINE Inactive 50 MG q. 50 MG FUMARATE [id number] evening [id number] PERMETHRIN 5 apply PERMETHRIN 517403 PERMETHRIN Inactive % CREA neck to 5 % CREA toes tonight and then rinse off in morning. repeat at 7 days DIFLUCAN 100 1 tablet DIFLUCAN 124029 FLUCONAZOLE Inactive MG TAB by mouth 100 MG TAB daily POTASSIUM 1 capsule POTASSIUM POTASSIUM Inactive CHLORIDE CR by mouth CHLORIDE CR CHLORIDE 10 MEQ CPCR daily 10 MEQ CPCR FLUCONAZOLE one p.o. FLUCONAZOLE 19760111 FLUCONAZOLE Inactive 100 MG TABS q. day 2 100 MG TABS days TRAMADOL HCL 1 po tid TRAMADOL 476302 TRAMADOL HCL Inactive 50 MG TABS with ES HCL 50 MG Tylenol TABS NECON 1/35 1 po NECON /35 NORETHINDRONE- Inactive (28) 1-35 daily (28) 1-35 ETH ESTRADIOL MG-MCG TABS MG-MCG TABS CIPRO 500 MG 1 tablet CIPRO 500 174687 CIPROFLOXACIN Inactive TAB by mouth MG TAB HCL twice daily ADIPEX-P 1/2 tab ADIPEX-P 743984 PHENTERMINE Inactive 37.5 MG CAPS po q am 37.5 MG HCL for CAPS weight loss ABILIFY 2 MG 1 po q hs ABILIFY 2 955293 ARIPIPRAZOLE Inactive TABS for major MG TABS depressio n HYDROCHLOROT 2 tabs HYDROCHLORO 953295 HYDROCHLOROTHI Inactive HIAZIDE 25 every THIAZIDE 25 AZIDE MG TABS morning MG TABS ABILIFY 5 MG one p.o. ABILIFY 5 492204 ARIPIPRAZOLE Inactive TABS q. day MG TABS CIPROFLOXACI Take one CIPROFLOXAC 084516 CIPROFLOXACIN Inactive N HCL 500 MG (1) IN HCL 500 HCL TABS tablet by MG TABS mouth twice a day PROMETHAZINE 1 tab by PROMETHAZIN 801311 PROMETHAZINE Inactive HCL 25 MG mouth E HCL 25 MG HCL TABS every 6 TABS hours as needed PHENTERMINE 1 po q am PHENTERMINE 614823 PHENTERMINE Inactive HCL 37.5 MG for wt. HCL 37.5 MG HCL TABS loss TABS AMARYL 1 MG 1 tab AMARYL 1 MG 186416 GLIMEPIRIDE Inactive TABS twice TABS daily METFORMIN 1 tablet METFORMIN 888711 METFORMIN HCL Inactive HCL 500 MG by mouth HCL 500 MG TABS twice TABS daily SPIRONOLACTO 1 tablet SPIRONOLACT 448548 SPIRONOLACTONE Inactive NE 25 MG TAB by mouth ONE 25 MG daily TAB POTASSIUM 2 capsule POTASSIUM POTASSIUM Inactive CHLORIDE CR by mouth CHLORIDE CR CHLORIDE 10 MEQ CPCR daily 10 MEQ CPCR LISINOPRIL 1 tablet LISINOPRIL 032790 LISINOPRIL Inactive 20 MG TABS by mouth 20 MG TABS daily DIFLUCAN 100 1 tablet DIFLUCAN 373916 FLUCONAZOLE Inactive MG TABS by mouth 100 MG TABS every other day for 2 doses DIFLUCAN 100 1 tablet DIFLUCAN 820845 FLUCONAZOLE Inactive MG TAB by mouth 100 MG TAB daily x 3 days PREDNISONE 2 tablets PREDNISONE 037809 PREDNISONE Inactive 20 MG TAB today, 20 MG TAB then 1 tablet days 2-4 VYVANSE 20 1 tablet VYVANSE 20 LISDEXAMFETAMI Inactive MG ORAL CAPS daily for MG ORAL NE DIMESYLATE binge CAPS eating disorder TRAMADOL HCL 1/2 po TRAMADOL 246195 TRAMADOL HCL Inactive 50 MG TABS tid with HCL 50 MG ES TABS Tylenol prn pain JANUVIA 100 1 tablet JANUVIA 100 SITAGLIPTIN Inactive MG TABS by mouth MG TABS PHOSPHATE daily AMARYL 1 MG 1 tablet AMARYL 1 MG 425440 GLIMEPIRIDE Inactive ORAL TABS orally ORAL TABS twice daily METFORMIN 2 tablets METFORMIN METFORMIN HCL Inactive HCL 500 MG by mouth HCL 500 MG TB24 twice TB24 daily AMOXICILLIN 2 po BID AMOXICILLIN 926437 AMOXICILLIN Inactive 500 MG CAPS x 10 days 500 MG CAPS PREDNISONE 2 tabs PREDNISONE 402457 PREDNISONE Inactive 20 MG TAB daily for 20 MG TAB 3 days, 1 tab daily for 3 days, 1/2 tab daily for 2 days NITROFURANTO One NITROFURANT 4853875 NITROFURANTOIN Inactive IN MONOHYD capsule OIN MONOHYD MONOHYD MACRO MACRO 100 MG BID for MACRO 100 CAPS UTI MG CAPS PREDNISONE 2 pills PREDNISONE 429877 PREDNISONE Inactive 20 MG TAB daily x 4 20 MG TAB days AZITHROMYCIN 2 po qd x AZITHROMYCI 3274610 AZITHROMYCIN Inactive 250 MG TABS 1 day, [...] HGBA1C - Chemistry sodium, serum 140 mmol/L 882-260 9732/06/03 potassium, serum 3.9 mmol/L 3.5-5.2 chloride, serum [...] Panel - Chemistry cholesterol, serum 157 mg/dL 615-376 6547/08/22 triglyceride, serum, fasting 215 mg/dL 30-200 HDL [...] mg/dL Encounters Code Encounter Date Provider Facility CPT-87242 Level 4 New Patient Yury Benoit MD [facility] 15:17:12 CDT CPT-22952 Level 3 Est. Patient [facility] - 13:37:46 CDT [place] CPT-92557 Level 4 Est. Patient [facility] - 10:01:06 CDT [place] CPT-89821 Level 3 Est. Patient [facility] 08:58:07 CDT DISPLAY MANAGER CPT-50159 Level 3 Est. Patient Faby Marino [facility] 14:40:56 CDT ENVIRONMENTAL EDUCATOR CPT-90616 Level 4 Est. Patient [facility] 17:29:53 MANAGER OF PRODUCT DISPLAY MANAGER CPT-29775 Level 4 Est. Patient [facility] 09:51:54 MANAGER OF PRODUCT CPT-18996 Level 3 Est. Patient Indigo Sexton [facility] 18:59:38 CDT CPT-76411 Level 3 Est. Patient Joseph Edwin [facility] 14:42:12 CDT -[facility] CPT-13799 Level 3 Est. Patient Joseph Edwin [facility] 22:18:20 CDT -[facility]HC CPT-86734 Level 3 Est. Patient Joseph Edwin [facility] 16:46:04 CDT -RHC CPT-47797 Level 3 Est. Patient [place] [facility] 15:39:53 CDT -RHC CPT-62769 Level 3 Est. Patient Maite Sanchez MD [facility] 13:33:34 CDT -RHC CPT-66828 Level 3 Est. Patient [place] [facility] 11:37:08 CDT -RHC CPT-44623 Level 3 Est. Patient Joseph Edwin [facility] 17:13:29 MANAGER OF PRODUCT -RHC CPT-81259 Level 3 Est. Patient Joseph Edwin [facility] 18:42:44 CDT CPT-63512 Level 3 Est. Patient [place] [facility] 16:25:39 CDT CPT-81060 Level 3 Est. Patient Casey ARCHIBALD [facility] 09:52:45 CDT -RHC CPT-68710 Level 3 Est. Patient Joseph Pineda [facility] 11:03:29 MANAGER OF PRODUCT -RHC CPT-53355 Level 3 Est. Patient [place] [facility] 11:03:08 MANAGER OF PRODUCT -RHC CPT-48232 Level 3 Est. Patient Joseph Edwin [facility] 14:33:31 CDT -RHC CPT-11820 Level 3 Est. Patient [facility] 17:05:02 MANAGER OF PRODUCT -RHC CPT-81323 Level 3 Est. Patient Joseph Trivedi [facility] 17:48:06 MANAGER OF PRODUCT -C CPT-56504 Level 3 Est. Patient Joseph Trivedi [facility] 14:59:22 MANAGER OF PRODUCT -RHC CPT-19700 Level 3 Est. Patient Joseph Trivedi [facility] - 21:45:56 MANAGER OF PRODUCT Jose [facility] CPT-51916 Level 3 Est. Patient Joseph Trivedi [facility] 21:29:50 CDT -C CPT-87243 Level 3 Est. Patient Joseph Pineda [facility] 12:41:09 CDT -RHC Procedures Code Procedure Name Date Entry Date Standard Description CPT-86504 [place] - LAB USE ONLY 12:39:03 MANAGER OF PRODUCT CPT-47636 Vaginal Culture - LAB USE ONLY 12:39:03 MANAGER OF PRODUCT CPT-76751 Urine Culture - LAB USE ONLY 11:52:44 MANAGER OF PRODUCT CPT-26212 UA w micro - LAB USE ONLY 11:52:44 MANAGER OF PRODUCT CPT-43336 Postop F/U Visit 12:08:35 CDT CPT-14825 Postop F/U Visit 18:20:10 CDT CPT-A4351 [facility]oplast Female Cath 09:37:10 CDT CPT-12359 Urine Dip (Floor Use Only) 15:17:13 CDT CPT-41910 Dil F ureth int 15:17:13 CDT CPT-47511 Venipuncture Draw Fee 09:19:08 CDT CPT-49305 Lipid - LAB USE ONLY 09:19:07 CDT CPT-JTINJ Asp/Joint Injection 09:26:49 CDT CPT-15875 Chest 2V Frontal and Lat 14:47:43 CDT CPT-JTINJ Asp/Joint Injection 09:51:53 MANAGER OF PRODUCT CPT-OV Office Visit 17:39:05 CDT CPT-OV Office Visit 15:19:50 CDT CPT-30808 Sono transvag pelvis non OB uterus ovaries cervix 18:04:34 CDT CPT-90006 Venipuncture Draw Fee 08:55:49 MANAGER OF PRODUCT
--- OUTSIDE RECORDS SUMMARY | 2016-11-20 13:08 | External Medical Summary | Clinical Summary ---
:1965 Author Organization [facility] Address [address] [address] Phone Allergies, Adverse Reactions, Alerts Allergy Name Reaction Description Start Date Severity Status Provider VERSED States jsut about Critical Active Gloria Saavedra PHARMACEUTICAL PHYSICIAN killed her NKDA Critical Active Indigo Yokum CONCERT PROMOTER NKDA Critical No Longer Indigo Yokum CONCERT PROMOTER Active NKDA Critical Inactive Adrianna Elder Conditions or Problems Problem Name Problem Onset Status Entry Provider Comment Standard Annotate Code Date Date Description ABNORMAL 626.9 Resolved Maite Gutierrez Unspecified VAGINAL Laura ONEAL disorders of BLEEDING PhD menstruation and other abnormal bleeding from female genital tract DEPRESSION, 296.33 Inactive Joseph Pineda Major depressive ACUTE, 0 Farooq DO disorder, RECURRENT recurrent episode, severe degree, without mention of psychotic behavior Depression, 311 Active Indigo Depressive chronic 09/20 Yokum CONCERT PROMOTER disorder, not elsewhere classified SCABIES 133.0 Resolved Maite Gutierrez Scabies 06/23 Laura ONEAL PhD HYPERTENSION 401.9 Active Joseph Pineda Unspecified 05/24 Farooq DO essential hypertension FATIGUE 780.79 Resolved Indigo Other malaise 05/24 07/02 Yokum CONCERT PROMOTER and fatigue SLEEP APNEA, 327.23 Active Joseph Pineda Obstructive OBSTRUCTIVE, 06/27 06/27 Faroqo DO sleep apnea MILD (adult) (pediatric) OVERWEIGHT 278.02 Inactive Joseph Pineda Overweight 06/28 06/28 Farooq DO Obesity 278.00 Active Indigo Obesity, 06/28 10/18 Yokum CONCERT PROMOTER unspecified OT GENERAL V70.3 Resolved Maite C Other general MEDICAL Laura ONEAL medical EXAMINATION PhD examination for ADMIN administrative PURPOSES purposes OTHER 790.29 Resolved Maite C Other abnormal ABNORMAL 05/20 Laura ONEAL glucose GLUCOSE PhD ACUTE 466.0 Resolved Maite Gutierrez Acute bronchitis BRONCHITIS 09/02 Laura ONEAL PhD DEPENDENT 782.3 Resolved Indiog Edema EDEMA, LEGS, 10/29 10/18 Yokum CONCERT PROMOTER BILATERAL HYPOKALEMIA, 276.8 Resolved Indigo Hypopotassemia MILD 10/29 07/02 Yo CONCERT PROMOTER Diabetes, 250.00 Inactive Joseph Pineda Diabetes Type 2 06/27 06/27 Farooq DO mellitus without mention of complication, type II or unspecified type, not stated as uncontrolled Diabetes 250.02 Resolved Indigo Diabetes mellitus, 06/27 10/18 Yokum CONCERT PROMOTER mellitus without type II, mention of uncontrolled complication, type II or unspecified type, uncontrolled Health V70.0 Active Joseph Pineda Routine general screening 01/17 01/17 Farooq DO medical examination at a health care facility Sinusitis, 461.1 Resolved Ismael Coyne Acute frontal frontal, 12/26 [place] sinusitis acute Laryngitis, 464.00 Resolved Ismael Coyne Acute laryngitis acute 12/26 [place] without mention MD of obstruction Binge eating 307.51 Active Joseph Pineda Bulimia nervosa disorder 08/15 08/15 Farooq DO Routine V72.31 Resolved Indigo Routine gynecological 12/14 07/02 Yo CONCERT PROMOTER gynecological examination examination Postmenopausa 627.1 Resolved Indigo Postmenopausal l bleeding 12/14 07/02 Yokum CONCERT PROMOTER bleeding Screening for V76.51 Resolved Indigo Screening for malignant 12/26 07/02 Yokum CONCERT PROMOTER malignant neoplasms of neoplasms of colon colon Insomnia, 307.42 Active 2015/0 Indigo 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 PROMOTER disorder of initiating or maintaining sleep Establish V68.89 Resolved Indigo Encounters for care or get 01/16 07/02 Yokum CONCERT PROMOTER other specified acquainted administrative visit purpose Weakness, 342.90 Resolved Indigo Hemiplegia, left side of 06/20 10/18 Yokum CONCERT PROMOTER unspecified, body affecting unspecified side TIA 435.9 Active Indigo Unspecified 06/20 07/02 Yokum CONCERT PROMOTER transient cerebral ischemia Knee pain, 719.46 Active Indigo Pain in joint bilateral 06/20 10/18 Yokum CONCERT PROMOTER involving lower leg Bronchitis 490 Resolved Indigo Bronchitis, not 07/23 10/18 Yokum CONCERT PROMOTER specified as acute or chronic Diabetes 357.2 Active Maliheh Polyneuropathy mellitus, 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 LITERARY 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 y Knee pain, 719.46 Resolved Indigo Pain in joint right 06/20 09/20 Yokum CONCERT PROMOTER involving lower leg Jesi 112.3 Resolved Indigo Candidiasis of intertrigo 10/09 09/20 Yokum CONCERT PROMOTER skin and nails Hyperlipidemi 272.4 Active Anne Other and a 12/24 12/24 Neil unspecified RMA hyperlipidemia Incontinence, 788.33 Resolved Indigo Mixed mixed, 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 CONCERT PROMOTER incontinence urge/stress (female) (male) Female stress 625.6 Active Yury Monaco Stress incontinence 01/03 01/03 Cy patel MD female Vaginal odor 623.8 Resolved Indigo Other specified 05/28 09/20 Yokum CONCERT PROMOTER noninflammatory disorders of vagina Urinary tract 599.0 Resolved Indigo Urinary tract infection 05/28 09/20 Yokum CONCERT PROMOTER infection, site not specified Urine odor 791.9 Resolved Indigo Other 05/28 09/20 Yokum CONCERT PROMOTER nonspecific findings on examination of urine Unspecified Resolved Indigo dyspareunia 08/19 09/20 Yokum CONCERT PROMOTER Depression Resolved Indigo 09/20 Yokum CONCERT PROMOTER Anxiety Active Indigo Anxiety state, Disorder 08/26 CONCERT PROMOTER unspecified ABNORMAL VAGINAL ICD-626.9 Inactive Maite C Laura BLEEDING PhD SCABIES ICD-133.0 Inactive Maite C Laura PhD FATIGUE ICD-780.79 Inactive Indigo Yokum CONCERT PROMOTER OTH GENERAL ICD-V70.3 Inactive Maite C Laura MEDICAL MD PhD EXAMINATION ADMIN PURPOSES OTHER ABNORMAL ICD-790.29 Inactive Maite C Ronyril GLUCOSE PhD ACUTE BRONCHITIS ICD-466.0 Inactive Maite C Laura PhD DEPENDENT EDEMA, ICD-782.3 Inactive Indigo Yokum LEGS, BILATERAL CONCERT PROMOTER HYPOKALEMIA, MILD ICD-276.8 Inactive Indigo Yokum CONCERT PROMOTER Diabetes mellitus, ICD-250.02 Inactive Indigo Yokum type II, CONCERT PROMOTER uncontrolled Sinusitis, ICD-461.1 Inactive Ismael Coyne frontal, acute Amandeep ONEAL Laryngitis, acute ICD-464.00 Inactive Ismael Coyne Amandeep ONEAL Routine ICD-V72.31 Inactive Indigo Yokum gynecological CONCERT PROMOTER examination Postmenopausal ICD-627.1 Inactive Indigo Yokum 2015 bleeding CONCERT PROMOTER Screening for ICD-V76.51 Inactive Indigo Yokum 2015 malignant CONCERT PROMOTER neoplasms of colon Establish care or ICD-V68.89 Inactive Indigo Yokum get acquainted CONCERT PROMOTER visit Weakness, left ICD-342.90 Inactive Indigo Yokum side of body CONCERT PROMOTER Bronchitis ICD-490 Inactive Indigo Yokum CONCERT PROMOTER Knee pain, right ICD-719.46 Inactive Indigo Yokum CONCERT PROMOTER Jesi intertrigo ICD-112.3 Inactive Indigo Yokum CONCERT PROMOTER Incontinence, ICD-788.33 Inactive Indigo Yokum 2016 mixed, urge/stress CONCERT PROMOTER Vaginal odor ICD-623.8 Inactive Indigo Yokum 09/20 CONCERT PROMOTER Urinary tract ICD-599.0 Inactive Indigo Yokum 09/20 infection CONCERT PROMOTER Urine odor ICD-791.9 Inactive Indigo Yokum CONCERT PROMOTER Unspecified Inactive Indigo Yokum dyspareunia CONCERT PROMOTER Depression Inactive Indigo Yokum CONCERT PROMOTER Medication List Medication Instructions Start Stop Generic NDC Status Provider Patient Date Date Name Instruction ALPRAZOLAM 3 one p.o. ALPRAZOLAM 35707078986 Active Indigo Active MG [id number] q.h.s. Yokum CONCERT PROMOTER ABILIFY 10 MG Take one ARIPIPRAZOLE 81844821020 Active Indigo Active ORAL TABS tablet Yokum daily for CONCERT PROMOTER depression CELEBREX 200 1 tablet 2 CELECOXIB 61034106308 No Indigo Active MG CAPS by mouth 0 Longer Yokum daily with 1 Active CONCERT PROMOTER meals 7 / 0 4 / 2 4 TROKENDI XR 1 tab by 2 TOPIRAMATE 02808024361 No Indigo Active 100 MG ORAL mouth 0 Longer Yokum [id number] daily 1 Active CONCERT PROMOTER 7 0 4 VESICARE 10 MG 1 pill by SOLIFENACIN 71697786883 Active J Carlos Enrique Active TABS mouth SUCCINATE [place] daily for MD overactive bladder CIPRO 250 MG 1 tablet 2 CIPROFLOXACIN 24696296318 No Indigo Active TAB by mouth 0 HCL Longer Yokum twice 1 Active CONCERT PROMOTER daily 7 METFORMIN HCL 2 tablets 2 METFORMIN HCL 27243519747 No Indigo Active 500 MG TB24 by mouth 0 Longer Yokum twice 1 Active CONCERT PROMOTER daily 2 AMARYL 1 MG 1 tablet 2 GLIMEPIRIDE 79613045155 No Indigo Active ORAL TABS orally 0 Longer Yokum twice 1 Active CONCERT PROMOTER daily 2 NYSTATIN apply to NYSTATIN 98155706780 Active Indigo Active 317356 UNIT/GM rash TID Yokum CREA PRN CONCERT PROMOTER METOPROLOL 1 tab po METOPROLOL 57882015697 Active Indigo Active TARTRATE 25 MG bid TARTRATE Yokum TABS CONCERT PROMOTER AZITHROMYCIN 2 po qd x 2 AZITHROMYCIN 05358239814 No Jillina Active 250 MG TABS 1 day, 0 Longer Frazell then 1 po 1 Active CONCERT PROMOTER qd x 4 6 days / 0 3 / 2 6 PREDNISONE 20 2 pills 2 PREDNISONE 51119669560 No Jillina Active MG TAB daily x 4 0 Longer Frazell days 1 Active CONCERT PROMOTER 6 / 0 3 / 2 5 PIOGLITAZONE take one a PIOGLITAZONE 55185727654 Active Maliheh Active HCL 30 MG ORAL day HCL Ziglari TABS LITERARY WRITER JANUVIA 100 MG 1 tablet 2 SITAGLIPTIN 49782453182 No Indigo Active TABS by mouth 0 PHOSPHATE Longer Yokum daily 1 Active CONCERT PROMOTER 6 / 0 2 / 1 6 ATORVASTATIN 1 pill by ATORVASTATIN 74048613356 Active Hannah Active CALCIUM 10 MG mouth CALCIUM Neal TABS nightly, CONCERT PROMOTER for cholestero l ASPIRIN 81 MG 1 po qd ASPIRIN 89549026921 Active Indigo Active ORAL TABS Yokum CONCERT PROMOTER NITROFURANTOIN One 2 NITROFURANTOIN 26991282876 No Indigo Active MONOHYD MACRO capsule 0 MONOHYD MACRO Longer Yokum 100 MG CAPS BID for 1 Active CONCERT PROMOTER UTI 6 / 0 2 / 1 3 TRAMADOL HCL 1/2 po tid 2 TRAMADOL HCL 59263757169 No Jillina Active 50 MG TABS with ES 0 Longer Frazell Tylenol 1 Active CONCERT PROMOTER prn pain 5 / 0 2 VYVANSE 20 MG 1 tablet 2 LISDEXAMFETAMI 00262278220 No Jillina Active ORAL CAPS daily for 0 NE DIMESYLATE Longer [place] binge 1 Active CONCERT PROMOTER eating 5 disorder / 0 2 LASIX 20 MG 2 tablet FUROSEMIDE 41107316523 Active Ranulfo Villalpando Active TAB by mouth [place] daily PREDNISONE 20 2 tablets 2 PREDNISONE 35458006090 No Joseph W Active MG TAB today, 0 Longer Farooq DO then 1 1 Active tablet 5 days 2-4 / 0 3 DIFLUCAN 100 1 tablet 2 FLUCONAZOLE 23252147238 No Joseph W Active MG TAB by mouth 0 Longer Farooq DO daily x 3 1 Active days 5 / 0 1 3 DIFLUCAN 100 1 tablet 2 FLUCONAZOLE 58028184638 No Joseph W Active MG TABS by mouth 0 Longer Farooq DO every 1 Active other day 5 for 2 / doses 0 1 / 2 3 ZOFRAN 4 MG 1 po q6hr ONDANSETRON 10033199012 Active Joseph W Active TABS PRN Nausea HCL Farooq DO PREDNISONE 20 2 tabs 2 PREDNISONE 43070539411 No Joseph W Active MG TAB daily for 0 Longer Farooq DO 3 days, 1 1 Active tab daily 4 for 3 / days, 1/2 1 tab daily 0 for 2 days / 2 5 AMOXICILLIN 2 po BID x 2 AMOXICILLIN 29565694227 No Maite C Active 500 MG CAPS 10 days 0 Longer Madril 1 Active PhD 4 / 1 0 / 2 0 LISINOPRIL 20 1 tablet 2 LISINOPRIL 29078496600 No Maite C Active MG TABS by mouth 0 Longer Madril daily 1 Active PhD 4 / 0 / 1 0 POTASSIUM 2 capsule 2 POTASSIUM 74601653135 No Joseph W Active CHLORIDE CR 10 by mouth 0 CHLORIDE Longer Farooq DO MEQ CPCR daily 1 Active 4 / 0 8 / 2 9 SPIRONOLACTONE 1 tablet 2 SPIRONOLACTONE 88928676816 No Joseph W Active 25 MG TAB by mouth 0 Longer Farooq DO daily 1 Active 4 / 0 8 / 2 9 METFORMIN HCL 1 tablet 2 METFORMIN HCL 68384737459 No Joseph W Active 500 MG TABS by mouth 0 Longer Farooq DO twice 1 Active daily 4 / 0 8 / 2 9 AMARYL 1 MG 1 tab 2 GLIMEPIRIDE 09764214139 No Joseph W Active TABS twice 0 Longer Farooq DO daily 1 Active 4 / 0 8 / 2 9 PHENTERMINE 1 po q am 2 PHENTERMINE 50102192891 No Joseph W Active HCL 37.5 MG for wt. 0 HCL Longer Farooq DO TABS loss 1 Active 3 / 1 2 / 2 3 PROMETHAZINE 1 tab by 2 PROMETHAZINE 15157433479 No Joseph W Active HCL 25 MG TABS mouth 0 HCL Longer Farooq DO every 6 1 Active hours as 3 needed / 0 9 / 0 9 CIPROFLOXACIN Take one 2 CIPROFLOXACIN 05556250270 No Joseph W Active HCL 500 MG (1) tablet 0 HCL Longer Farooq DO TABS by mouth 1 Active twice a 3 day / 0 9 / 0 9 ABILIFY 5 MG one p.o. 2 ARIPIPRAZOLE 77002953786 No Joseph W Active TABS q. day 0 Longer Farooq DO 1 Active 3 / 0 9 / 0 9 HYDROCHLOROTHI 2 tabs 2 HYDROCHLOROTHI 91400865954 No Joseph W Active AZIDE 25 MG every 0 AZIDE Longer Farooq DO TABS morning 1 Active 3 / 0 6 / 2 7 ABILIFY 2 MG 1 po q hs 2 ARIPIPRAZOLE 09741148801 No Joseph W Active TABS for major 0 Longer Farooq DO depression 1 Active 3 / 0 5 / 0 7 ADIPEX-P 37.5 1/2 tab po 2 PHENTERMINE 03988258698 No Casey Active MG CAPS q am for 0 HCL Longer weight 1 Active PA loss 3 / 0 5 / 0 1 CIPRO 500 MG 1 tablet 2 CIPROFLOXACIN 25979594774 No Casey Active TAB by mouth 0 HCL Longer Leonarda twice 1 Active PA daily 3 / 0 5 / 0 1 NECON 1 po daily 2 NORETHINDRONE- 00653415483 No Casey Active () 1-35 0 ETH ESTRADIOL Longer MG-MCG TABS 1 Active PA 3 / 0 5 / 0 1 TRAMADOL HCL 1 po tid 2 TRAMADOL HCL 56658639635 No Casey Active 50 MG TABS with ES 0 Longer Tylenol 1 Active PA 3 / 0 5 / 0 1 FLUCONAZOLE one p.o. 2 FLUCONAZOLE 37671466295 No Casey Active 100 MG TABS q. day 2 0 Longer days 1 Active PA 3 / 0 5 / 0 1 POTASSIUM 1 capsule 2 POTASSIUM 49329219151 No Casey Active CHLORIDE CR 10 by mouth 0 CHLORIDE Longer MEQ CPCR daily 1 Active PA 3 / 0 5 / 0 1 IMIPRAMINE HCL Take 6 IMIPRAMINE HCL 41622399020 Active Indigo Active 50 MG TABS tablets by Yokum mouth at CONCERT PROMOTER bedtime DIFLUCAN 100 1 tablet 2 FLUCONAZOLE 60160263087 No Joseph W Active MG TAB by mouth 0 Longer Farooq DO daily 1 Active 2 / 0 2 / 2 4 VERAPAMIL HCL 2 po bid VERAPAMIL HCL 51413184138 Active Indigo Active CR 120 MG TAB Yokum CR CONCERT PROMOTER PERMETHRIN 5 % apply neck 2 PERMETHRIN 12285165630 No Joseph W Active CREA to toes 0 Longer Farooq DO tonight 1 Active and then 2 rinse off / in 0 morning. 1 repeat at / 7 days 2 0 SEROQUEL XR 50 one p.o. 2 QUETIAPINE 79759191977 No Joseph W Active MG [id number] q. evening 0 FUMARATE Longer Farooq DO 1 Active 2 / 0 1 / 2 0 TRAMADOL HCL 1-2 2 TRAMADOL HCL 28697952108 No Joseph W Active 50 MG TABS tablets 0 Longer Farooq DO every 6-8 1 Active hours as 2 needed for / pain 0 1 / 2 0 ALPRAZOLAM XR Take 1 2 ALPRAZOLAM 22552729676 No Joseph W Active [id number] tablet by 0 [id number] Longer Farooq DO mouth at 1 Active bedtime 1 / 2 9 DIFLUCAN 100 1 tablet 2 FLUCONAZOLE 21551692671 No Joseph W Active MG TAB by mouth 0 Longer Farooq DO daily 1 Active 0 / 0 6 AMBIEN 10 MG 1 tab by ZOLPIDEM 22985449737 Active Indigo Active TAB mouth at TARTRATE Yokum bedtime as CONCERT PROMOTER needed for sleep DIFLUCAN 100 1 tablet DIFLUCAN 297648 FLUCONAZOLE Inactive MG TAB by mouth 100 MG TAB daily ALPRAZOLAM Take 1 ALPRAZOLAM ALPRAZOLAM Inactive XR [id number] tablet by XR [id number] mouth at [id number] bedtime TRAMADOL HCL 1-2 TRAMADOL 657153 TRAMADOL HCL Inactive 50 MG TABS tablets HCL 50 MG every 6-8 TABS hours as needed for pain SEROQUEL XR one p.o. SEROQUEL XR QUETIAPINE Inactive 50 MG q. 50 MG FUMARATE [id number] evening [id number] PERMETHRIN 5 apply PERMETHRIN 744734 PERMETHRIN Inactive % CREA neck to 5 [...] days TRAMADOL HCL 1 po tid TRAMADOL 551583 TRAMADOL HCL Inactive 50 MG TABS with ES HCL 50 MG Tylenol TABS NECON 35 1 po NECON NORETHINDRONE- Inactive (28) 1-35 daily (28) 1-35 ETH ESTRADIOL MG-MCG TABS MG-MCG TABS CIPRO 500 MG 1 tablet CIPRO 500 429033 CIPROFLOXACIN Inactive TAB by mouth MG TAB HCL twice daily ADIPEX-P 1/2 tab ADIPEX-P 749025 PHENTERMINE Inactive 37.5 MG CAPS po q am 37.5 MG HCL for CAPS weight loss ABILIFY 2 MG 1 po q hs ABILIFY 2 430563 ARIPIPRAZOLE Inactive TABS for major MG TABS depressio n HYDROCHLOROT 2 tabs HYDROCHLORO 431205 HYDROCHLOROTHI Inactive HIAZIDE 25 every THIAZIDE 25 AZIDE MG TABS morning MG TABS ABILIFY 5 MG one p.o. ABILIFY 5 691296 ARIPIPRAZOLE Inactive TABS q. day MG TABS CIPROFLOXACI Take one CIPROFLOXAC 197433 CIPROFLOXACIN Inactive N HCL 500 MG (1) IN HCL 500 HCL TABS tablet by MG TABS mouth twice a day PROMETHAZINE 1 tab by PROMETHAZIN 191109 PROMETHAZINE Inactive HCL 25 MG mouth E HCL 25 MG HCL TABS every 6 TABS hours as needed PHENTERMINE 1 po q am PHENTERMINE 262023 PHENTERMINE Inactive HCL 37.5 MG for wt. HCL 37.5 MG HCL TABS loss TABS AMARYL 1 MG 1 tab AMARYL 1 MG 103625 GLIMEPIRIDE Inactive TABS twice TABS daily METFORMIN 1 tablet METFORMIN 780874 METFORMIN HCL Inactive HCL 500 MG by mouth HCL 500 MG TABS twice TABS daily SPIRONOLACTO 1 tablet SPIRONOLACT 288735 SPIRONOLACTONE Inactive NE 25 MG TAB by mouth ONE 25 MG daily TAB POTASSIUM 2 capsule POTASSIUM POTASSIUM Inactive CHLORIDE CR by mouth CHLORIDE CR CHLORIDE 10 MEQ CPCR daily 10 MEQ CPCR LISINOPRIL 1 tablet LISINOPRIL 307523 LISINOPRIL Inactive 20 MG TABS by mouth 20 MG TABS daily DIFLUCAN 100 1 tablet DIFLUCAN 363998 FLUCONAZOLE Inactive MG TABS by mouth 100 MG TABS every other day for 2 doses DIFLUCAN 100 1 tablet DIFLUCAN 619860 FLUCONAZOLE Inactive MG TAB by mouth 100 MG TAB daily x 3 days PREDNISONE 2 tablets PREDNISONE 651636 PREDNISONE Inactive 20 MG TAB today, 20 MG TAB then 1 tablet days 2-4 VYVANSE 20 1 tablet VYVANSE 20 LISDEXAMFETAMI Inactive MG ORAL CAPS daily for MG ORAL NE DIMESYLATE binge CAPS eating disorder TRAMADOL HCL 1/2 po TRAMADOL 207008 TRAMADOL HCL Inactive 50 MG TABS tid with HCL 50 MG ES TABS Tylenol prn pain JANUVIA 100 1 tablet JANUVIA 100 SITAGLIPTIN Inactive MG TABS by mouth MG TABS PHOSPHATE daily AMARYL 1 MG 1 tablet AMARYL 1 MG 532549 GLIMEPIRIDE Inactive ORAL TABS orally ORAL TABS twice daily METFORMIN 2 tablets METFORMIN METFORMIN HCL Inactive HCL 500 MG by mouth HCL 500 MG TB24 twice TB24 daily TROKENDI XR 1 tab by TROKENDI XR TOPIRAMATE Inactive 100 MG ORAL mouth 100 MG ORAL [id number]-RIQ daily [id number] CELEBREX 200 1 tablet CELEBREX 421734 CELECOXIB Inactive MG CAPS by mouth 200 MG CAPS daily with meals AMOXICILLIN 2 po BID AMOXICILLIN 519834 AMOXICILLIN Inactive 500 MG CAPS x 10 days 500 MG CAPS PREDNISONE 2 tabs PREDNISONE 750375 PREDNISONE Inactive 20 MG TAB daily for 20 MG TAB 3 days, 1 tab daily for 3 days, 1/2 tab daily for 2 days NITROFURANTO One NITROFURANT 7696699 NITROFURANTOIN Inactive IN MONOHYD capsule OIN MONOHYD MONOHYD MACRO MACRO 100 MG BID for MACRO 100 CAPS UTI MG CAPS PREDNISONE 2 pills PREDNISONE 029838 PREDNISONE Inactive 20 MG TAB daily x 4 20 MG TAB days AZITHROMYCIN 2 po qd x AZITHROMYCI 3226923 AZITHROMYCIN Inactive 250 MG TABS 1 day, N 250 MG then 1 po TABS qd x 4 days CIPRO 250 MG 1 tablet CIPRO 250 417774 CIPROFLOXACIN Inactive TAB by mouth MG TAB HCL twice daily Advance Directives Directive Description Start Date PERMISSION TO SHARE Vital Signs Date Name Value Unit Range Description blood pressure, diastolic - 8462-4 68 mm[Hg] BP nunez blood pressure, systolic - 8480-6 139 mm[Hg] BP sys height E&M - 8302-2 62 [in_us] Bdy height pulse rate E&M - 8867-4 75 /min Heart rate temperature E&M 98.2 [degF] Body temperature weight E&M - 3141-9 255 [lb_av] Weight Measured blood pressure, diastolic - 8462-4 65 mm[Hg] BP nunez blood pressure, systolic - 8480-6 135 mm[Hg] BP sys pulse rate E&M - 8867-4 85 /min Heart rate temperature E&M 98.2 [degF] Body temperature weight E&M - 3141-9 255 [lb_av] Weight Measured blood pressure, diastolic - 8462-4 66 mm[Hg] [...] E&M - 3141-9 246 [lb_av] Weight Measured Diagnostic Results Date Name Value Unit Range Description Lab Report: Basic Metabolic Panel, HGBA1C - Chemistry sodium, serum 140 mmol/L 161-072 7822/06/03 potassium, serum 3.9 mmol/L 3.5-5.2 chloride, serum 105 mmol/L 98-107 carbon dioxide, venous blood 29.4 mmol/L 21.0-32.0 blood glucose 124 mg/dL 65-110 calcium, serum 8.9 mg/dL 8.5-10.1 urea nitrogen, blood 14 mg/dL 7-18 creatinine, serum 0.88 mg/dL 0.55-1.30 hemoglobin A1C, blood, as % of total hemoglobin 5.7 % 4.3-6.0 Lab Report: Chlamydia/GC APTIMA/[id number] - Lab chlamydia DNA probe NOT DETECTED NOT DETECTED Lab Report: Chlamydia/GC APTIMA/[id number] - Microbiology Neisseria gonorrhoeae DNA probe NOT DETECTED NOT DETECTED Lab Report: Lipid Panel - Chemistry cholesterol, serum 157 mg/dL 315-093 6565/08/22 triglyceride, serum, fasting 215 mg/dL 30-200 HDL [...] pH, urine, semiquantitative 6.0 5.0-8.5 Office Visit: -incontinence - Chemistry RBC, urine, dipstick negative Office Visit: -incontinence - Urinalysis ketones, urine, by test strip negative bilirubin, urine negative glucose, urine, semiquantitative negative urine color yellow appearance, urine clear leukocyte esterase, urine, by dipstick negative nitrite, urine, semiquantitative negative urobilinogen, urine, semiquantitative (dipstick) negative protein, urine, semiquantitative (dipstick) negative Office Visit: Diabetes Visit - Basic LDL target level 100 mg/dL Office Visit: Diabetes Visit - Chemistry cholesterol, target level 200 mg/dL triglyceride, target level 200 mg/dL HDL cholesterol, serum, target level 35 mg/dL Encounters Code Encounter Date Provider Facility CPT-38272 Level 4 Est. Patient Indigo Car[facility] - 16:58:20 CDT [facility] CPT-32608 Level 3 Est. Patient Yury Benoit MD [facility] 17:20:07 CDT CPT-37971 Level 4 Est. Patient Indigomikayla Sexton CONCERT PROMOTER [facility] - 17:02:40 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 [facility] CPT-09013 Level 4 New Patient Yury Benoit MD [facility] 15:17:12 CDT CPT-50348 Level 3 Est. Patient [facility] 13[facility]37[facility] CPT-72080 Level 4 Est. Patient [facility] CPT-63686 Level 3 Est. Patient [facility] 08:58:07 CDT LITERARY WRITER CPT-52377 Level 3 Est. Patient Faby Marino [facility] 14:40:56 CDT CONCERT PROMOTER CPT-10075 Level 4 Est. Patient [facility] 17:29:53 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 LITERARY WRITER CPT-45744 Level 4 Est. Patient [facility] 09:51:54 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 CPT-37028 Level 3 Est. Patient [facility] 18:59:38 CDT CPT-91726 Level 3 Est. Patient Joseph Pineda [facility] 14:42:12 CDT -[facility] CPT-03230 Level 3 Est. Patient Joseph Pineda [facility] 22:18:20 CDT -[facility] CPT-64487 Level 3 Est. Patient Joseph Pineda [facility] 16:46:04 CDT -[facility] CPT-07964 Level 3 Est. Patient Joseph Pineda [facility] 15:39:53 CDT -[facility] CPT-41957 Level 3 Est. Patient Maite Sanchez MD PhD [facility] 13:33:34 CDT -[facility] CPT-60377 Level 3 Est. Patient Joseph Pineda [facility] 11:37:08 CDT -[facility] CPT-11504 Level 3 Est. Patient Joseph Pineda [facility] 17:13:29 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 -[facility] CPT-89294 Level 3 Est. Patient Joseph Trivedi [facility] 18:42:44 CDT CPT-17809 Level 3 Est. Patient Joseph Trivedi [facility] 16:25:39 CDT CPT-89686 Level 3 Est. Patient Casey Brower [facility] 09:52:45 CDT -[facility] CPT-44407 Level 3 Est. Patient Joseph Trivedi [facility] 11:03:29 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 -[facility] CPT-86823 Level 3 Est. Patient Joseph Pineda [facility] 11:03:08 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 -[facility] CPT-91859 Level 3 Est. Patient Joseph Pineda [facility] 14:33:31 CDT -[facility] CPT-82298 Level 3 Est. Patient Joseph Pineda [facility] 17:05:02 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 -[facility] CPT-82261 Level 3 Est. Patient Joseph Pineda [facility] 17:48:06 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 -[facility] CPT-57571 Level 3 Est. Patient Joseph Pineda [facility] 14:59:22 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 -[facility] CPT-26637 Level 3 Est. Patient Joseph Pineda [facility] - 21:45:56 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 [place] [facility] CPT-49436 Level 3 Est. Patient Joseph Pienda [facility] 21:29:50 CDT -[facility] CPT-03150 Level 3 Est. Patient Joseph Pineda [facility] 12:41:09 CDT -[facility] Procedures Code Procedure Name Date Entry Date Standard Description CPT-85732 Wet [place] - LAB USE ONLY 12:39:03 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 CPT-10509 Vaginal Culture - LAB USE ONLY 12:39:03 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 CPT-14258 Urine Culture - LAB USE ONLY 11:52:44 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 CPT-70700 UA w micro - LAB USE ONLY 11:52:44 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 CPT-50741 Postop F/U Visit 12:08:35 CDT CPT-19733 Postop F/U Visit 18:20:10 CDT CPT-A4351 Coloplast Female Cath 09:37:10 CDT CPT-72278 Urine Dip (Floor Use Only) 15:17:13 CDT CPT-97993 Dil F ureth int 15:17:13 CDT CPT-83990 Venipuncture Draw Fee 09:19:08 CDT CPT-72653 Lipid - LAB USE ONLY 09:19:07 CDT CPT-JTINJ Asp/Joint Injection 09:26:49 CDT CPT-08822 Chest 2V Frontal and Lat 14:47:43 CDT CPT-JTINJ Asp/Joint Injection 09:51:53 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 CPT-OV Office Visit 17:39:05 CDT CPT-OV Office Visit 15:19:50 CDT CPT-43725 Sono transvag pelvis non OB uterus ovaries cervix 18:04:34 CDT CPT-57546 Venipuncture Draw Fee 08:55:49 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
--- OUTSIDE RECORDS SUMMARY | 2016-11-20 13:09 | External Medical Summary | Clinical Summary ---
:1965 Author Organization [facility] ReferMe Address [address] [address] Phone Allergies, Adverse Reactions, Alerts Allergy Name Reaction Description Start Date Severity Status Provider NKDA Critical Active Indigo Yonickieum DIRECTOR OF GRADUATE MEDICAL EDUCATION NKDA Critical No Longer Indigo Yokum DIRECTOR OF GRADUATE MEDICAL EDUCATION Active NKDA Critical Inactive Adrianna Elder Conditions [...] Resolved Indigo Other malaise 05/24 07/02 Yokum DIRECTOR OF GRADUATE MEDICAL EDUCATION and fatigue SLEEP APNEA, 327.23 Active Joseph Pineda Obstructive OBSTRUCTIVE, 06/27 06/27 Farooq DO sleep apnea MILD (adult) (pediatric) OVERWEIGHT 278.02 Inactive Joseph Pineda Overweight 06/28 06/28 Farooq DO Obesity 278.00 Active Indigo Obesity, 06/28 10/18 Yokum DIRECTOR OF GRADUATE MEDICAL EDUCATION unspecified OTH GENERAL V70.3 Resolved Maite Gutierrez Other general MEDICAL Laura ONEAL medical EXAMINATION PhD examination for ADMIN PURPOSES administrative purposes OTHER ABNORMAL 790.29 Resolved Maite C Other abnormal GLUCOSE 05/20 Laura ONEAL glucose PhD ACUTE 466.0 Resolved Maite C Acute BRONCHITIS 09/02 Laura ONEAL bronchitis PhD DEPENDENT 782.3 Resolved Indigo Edema EDEMA, LEGS, 10/29 10/18 Yokum DIRECTOR OF GRADUATE MEDICAL EDUCATION BILATERAL HYPOKALEMIA, 276.8 Resolved Indigo Hypopotassemia MILD 10/29 07/02 Youm DIRECTOR OF GRADUATE MEDICAL EDUCATION Diabetes, Type 250.00 Inactive Joseph Pineda Diabetes 2 06/27 06/27 Farooq DO mellitus without mention of complication, type II or unspecified type, not stated as uncontrolled Diabetes 250.02 Resolved Indigo Diabetes mellitus, type 06/27 DIRECTOR OF GRADUATE MEDICAL EDUCATION mellitus II, without mention uncontrolled of complication, [...] Resolved Indigo Routine gynecological 12/14 07/02 Yo DIRECTOR OF GRADUATE MEDICAL EDUCATION gynecological examination examination Postmenopausal 627.1 Resolved Indigo Postmenopausal bleeding 12/14 DIRECTOR OF GRADUATE MEDICAL EDUCATION bleeding Screening for V76.51 Resolved Indigo Screening for malignant 12/26 07/02 Yokum DIRECTOR OF GRADUATE MEDICAL EDUCATION malignant neoplasms of neoplasms of colon colon Insomnia, 307.42 Active Indigo 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 DIRECTOR OF GRADUATE MEDICAL EDUCATION disorder of initiating or maintaining sleep Establish care V68.89 Resolved Indigo Encounters for or get 01/16 07/02 Yo DIRECTOR OF GRADUATE MEDICAL EDUCATION other specified acquainted administrative visit purpose Weakness, left 342.90 Resolved Indigo Hemiplegia, side of body 06/20 10/18 Yokum DIRECTOR OF GRADUATE MEDICAL EDUCATION unspecified, affecting unspecified side TIA 435.9 Active Indigo Unspecified 06/20 07/02 Yokum DIRECTOR OF GRADUATE MEDICAL EDUCATION transient cerebral ischemia Knee pain, 719.46 Active Indigo Pain in joint bilateral 06/20 10/18 Yokum DIRECTOR OF GRADUATE MEDICAL EDUCATION involving lower leg Bronchitis 490 Resolved Indigo Bronchitis, not 07/23 10/18 Yokum DIRECTOR OF GRADUATE MEDICAL EDUCATION specified as acute or chronic Diabetes 357.2 Active Maliheh Polyneuropathy mellitus, 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CAMPAIGN SPECIALIST 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y Knee pain, 719.46 Active Indigo Pain in joint right 06/20 10/18 Yokum DIRECTOR OF GRADUATE MEDICAL EDUCATION involving lower leg Jesi 112.3 Active Indigo Candidiasis of intertrigo 10/09 10/18 Yokum DIRECTOR OF GRADUATE MEDICAL EDUCATION skin and nails Hyperlipidemia 272.4 Active Anne Other and 12/24 12/24 Neil unspecified RMA hyperlipidemia Incontinence, 788.33 Active Indigo Mixed mixed, 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 DIRECTOR OF GRADUATE MEDICAL EDUCATION incontinence urge/stress (female) (male) Female stress 625.6 Active Yury AnthonyCarlos Enrique Stress incontinence 01/03 01/03 Cy patel MD female ABNORMAL VAGINAL ICD-626.9 Inactive Maite Sanchez BLEEDING PhD SCABIES ICD-133.0 Inactive Maite Sanchez PhD FATIGUE ICD-780.79 Inactive Indigo Yokum DIRECTOR OF GRADUATE MEDICAL EDUCATION OTH GENERAL ICD-V70.3 Inactive Maite Sanchez MEDICAL PhD EXAMINATION ADMIN PURPOSES OTHER ABNORMAL ICD-790.29 Inactive Maite Sanchez GLUCOSE PhD ACUTE BRONCHITIS ICD-466.0 Inactive Maite Matt Sanchez PhD DEPENDENT EDEMA, ICD-782.3 Inactive Indigo Yokum LEGS, BILATERAL DIRECTOR OF GRADUATE MEDICAL EDUCATION HYPOKALEMIA, MILD ICD-276.8 Inactive Indigo Yokum DIRECTOR OF GRADUATE MEDICAL EDUCATION Diabetes mellitus, ICD-250.02 Inactive Indigo Yokum type II, DIRECTOR OF GRADUATE MEDICAL EDUCATION uncontrolled Sinusitis, ICD-461.1 Inactive Ismael Coyne frontal, acute Amandeep ONEAL Laryngitis, acute ICD-464.00 Inactive Ismael Coyne Amandeep ONEAL Routine ICD-V72.31 Inactive Indigo Yokum gynecological DIRECTOR OF GRADUATE MEDICAL EDUCATION examination Postmenopausal ICD-627.1 Inactive Indigo Yokum 2015 bleeding DIRECTOR OF GRADUATE MEDICAL EDUCATION Screening for ICD-V76.51 Inactive Indigo Yokum 2015 malignant DIRECTOR OF GRADUATE MEDICAL EDUCATION neoplasms of colon Establish care or ICD-V68.89 Inactive Indigo Yokum get acquainted DIRECTOR OF GRADUATE MEDICAL EDUCATION visit Weakness, left ICD-342.90 Inactive Indigo Yokum side of body DIRECTOR OF GRADUATE MEDICAL EDUCATION Bronchitis ICD-490 Inactive Indigo Yokum DIRECTOR OF GRADUATE MEDICAL EDUCATION Medication List Medication Instructions Start Stop Generic NDC Status Provider Patient Date Date Name Instruction METFORMIN 2 tablets METFORMIN 10049495626 No Indigo Active HCL 500 MG by mouth HCL Longer Yokum TB24 twice Active DIRECTOR OF GRADUATE MEDICAL EDUCATION daily AMARYL 1 MG 1 tablet GLIMEPIRID 74921299665 No Indigo Active ORAL TABS orally E Longer Yokum twice Active DIRECTOR OF GRADUATE MEDICAL EDUCATION daily NYSTATIN apply to NYSTATIN 77799400101 Active Indigo Active 484702 rash TID Yokum UNIT/GM PRN DIRECTOR OF GRADUATE MEDICAL EDUCATION CREA TROKENDI XR 2 tab TOPIRAMATE 45765538446 Active Malihe Active 100 MG ORAL daily h [id number] Ziglar i CAMPAIGN SPECIALIST METOPROLOL 1 tab po METOPROLOL 79272634697 Active Indigo Active TARTRATE 25 bid TARTRATE Yokum MG TABS DIRECTOR OF GRADUATE MEDICAL EDUCATION AZITHROMYCI 2 po qd x AZITHROMYC 42143785776 No Jillin Active N 250 MG 1 day, IN Longer a TABS then 1 po Active Frazel qd x 4 l DIRECTOR OF GRADUATE MEDICAL EDUCATION days PREDNISONE 2 pills PREDNISONE 79337590493 No Jillin Active 20 MG TAB daily x 4 Longer a days Active Frazel l DIRECTOR OF GRADUATE MEDICAL EDUCATION PIOGLITAZON take one PIOGLITAZO 14755640444 Active Malihe Active E HCL 30 MG a day NE HCL h ORAL TABS Ziglar i CAMPAIGN SPECIALIST JANUVIA 100 1 tablet SITAGLIPTI 19980422831 No Indigo Active MG TABS by mouth N Longer Yokum daily PHOSPHATE Active DIRECTOR OF GRADUATE MEDICAL EDUCATION ATORVASTATI 1 pill by ATORVASTAT 61316205603 Active Indigo Active N CALCIUM mouth IN CALCIUM Yokum 10 MG TABS nightly, DIRECTOR OF GRADUATE MEDICAL EDUCATION for cholester ol ASPIRIN 81 1 po qd ASPIRIN 45044620008 Active Indigo Active MG ORAL Yokum TABS DIRECTOR OF GRADUATE MEDICAL EDUCATION NITROFURANT One NITROFURAN 10531319376 No Indigo Active OIN MONOHYD capsule TOIN Longer Yokum MACRO 100 BID for MONOHYD Active DIRECTOR OF GRADUATE MEDICAL EDUCATION MG CAPS UTI MACRO TRAMADOL 1/2 po TRAMADOL 99544215700 No Jillin Active HCL 50 MG tid with HCL Longer a TABS ES Active Frazel Tylenol l DIRECTOR OF GRADUATE MEDICAL EDUCATION prn pain VYVANSE 20 1 tablet LISDEXAMFE 38304578544 No Jillin Active MG ORAL daily for TAMINE Longer a CAPS binge DIMESYLATE Active Frazel eating l DIRECTOR OF GRADUATE MEDICAL EDUCATION disorder LASIX 20 MG 2 tablet FUROSEMIDE 10644017802 Active Indigo Active TAB by mouth Yokum daily DIRECTOR OF GRADUATE MEDICAL EDUCATION CELEBREX 1 tablet CELECOXIB 93420357113 Active Indigo Active 200 MG CAPS by mouth Yokum daily DIRECTOR OF GRADUATE MEDICAL EDUCATION with meals PREDNISONE 2 tablets PREDNISONE 53693228590 No Joseph Active 20 MG TAB today, Longer W Farooq then 1 Active DO tablet days 2-4 DIFLUCAN 1 tablet FLUCONAZOL 31690635131 No Joseph Active 100 MG TAB by mouth E Longer W Farooq daily x 3 Active DO days DIFLUCAN 1 tablet FLUCONAZOL 41950570135 No Joseph Active 100 MG TABS by mouth E Longer W Farooq every Active DO other day for 2 doses ZOFRAN 4 MG 1 po q6hr ONDANSETRO 87843958540 Active Joseph Active TABS PRN N HCL W Farooq Nausea DO PREDNISONE 2 tabs PREDNISONE 65021849796 No Joseph Active 20 MG TAB daily for Longer W Farooq 3 days, 1 Active DO tab daily for 3 days, 1/2 tab daily for 2 days AMOXICILLIN 2 po BID AMOXICILLI 13117477758 No Maite C Active 500 MG CAPS x 10 days N Longer Madril Active PhD LISINOPRIL 1 tablet LISINOPRIL 70690766249 No Maite C Active 20 MG TABS by mouth Longer Madril daily Active PhD POTASSIUM 2 capsule POTASSIUM 59256387956 No Joseph Active CHLORIDE CR by mouth CHLORIDE Longer W Farooq 10 MEQ CPCR daily Active DO SPIRONOLACT 1 tablet SPIRONOLAC 73628239725 No Joseph Active ONE 25 MG by mouth TONE Longer W Farooq TAB daily Active DO METFORMIN 1 tablet METFORMIN 94623696113 No Joseph Active HCL 500 MG by mouth HCL Longer W Farooq TABS twice Active DO daily AMARYL 1 MG 1 tab GLIMEPIRID 58384502004 No Joseph Active TABS twice E Longer W Farooq daily Active DO PHENTERMINE 1 po q am PHENTERMIN 60624830653 No Joseph Active HCL 37.5 MG for wt. E HCL Longer W Farooq TABS loss Active DO PROMETHAZIN 1 tab by PROMETHAZI 57970000089 No Joseph Active E HCL 25 MG mouth NE HCL Longer W Farooq TABS every 6 Active DO hours as needed CIPROFLOXAC Take one CIPROFLOXA 11387325148 No Joseph Active IN HCL 500 (1) DELORES HCL Longer W Farooq MG TABS tablet by Active DO mouth twice a day ABILIFY 5 one p.o. ARIPIPRAZO 30704809787 No Joseph Active MG TABS q. day LE Longer W Farooq Active DO HYDROCHLORO 2 tabs HYDROCHLOR 71074706741 No Joseph Active THIAZIDE 25 every OTHIAZIDE Longer W Farooq MG TABS morning Active DO ABILIFY 2 1 po q hs ARIPIPRAZO 88934622783 No Joseph Active MG TABS for major LE Longer W Farooq depressio Active DO n ADIPEX-P 1/2 tab PHENTERMIN 53992664433 No Casey Active 37.5 MG po q am E HCL Longer Leonarda CAPS for Active PA weight loss CIPRO 500 1 tablet CIPROFLOXA 54138872351 No Casey Active MG TAB by mouth DELORES HCL Longer [place] twice Active PA daily NECON 1/35 1 po NORETHINDR 02864923927 No Casey Active (28) 1-35 daily ONE-ETH Longer [place] MG-MCG TABS ESTRADIOL Active PA TRAMADOL 1 po tid TRAMADOL 80707209398 No Casey Active HCL 50 MG with ES HCL Longer [place] TABS Tylenol Active PA FLUCONAZOLE one p.o. FLUCONAZOL 95111372382 No Casey Active 100 MG TABS q. day 2 E Longer [place] days Active PA POTASSIUM 1 capsule POTASSIUM 42697563951 No Casey Active CHLORIDE CR by mouth CHLORIDE Longer 10 MEQ CPCR daily Active PA IMIPRAMINE Take 6 IMIPRAMINE 43655369496 Active Indigo Active HCL 50 MG tablets HCL Yokum TABS by mouth DIRECTOR OF GRADUATE MEDICAL EDUCATION at bedtime DIFLUCAN 1 tablet FLUCONAZOL 62482145459 No Joseph Active 100 MG TAB by mouth E Longer W Farooq daily Active DO VERAPAMIL 2 po bid VERAPAMIL 06313512724 Active Indigo Active HCL CR 120 HCL Yokum MG TAB CR DIRECTOR OF GRADUATE MEDICAL EDUCATION PERMETHRIN apply PERMETHRIN 78506619064 No Joseph Active 5 % CREA neck to Longer W Farooq toes Active DO tonight and then rinse off in morning. repeat at 7 days SEROQUEL XR one p.o. QUETIAPINE 70544147414 No Joseph Active 50 MG q. FUMARATE Longer W Farooq [id number] evening Active DO TRAMADOL 1-2 TRAMADOL 58057172101 No Joseph Active HCL 50 MG tablets HCL Longer W Farooq TABS every 6-8 Active DO hours as needed for pain ALPRAZOLAM one p.o. ALPRAZOLAM 20312409721 Active Indigo Active 3 MG q.h.s. Yokum [id number] DIRECTOR OF GRADUATE MEDICAL EDUCATION ALPRAZOLAM Take 1 ALPRAZOLAM 05442339204 No Joseph Active XR tablet by [id number] Longer W Farooq [id number] mouth at Active DO bedtime DIFLUCAN 1 tablet FLUCONAZOL 66759973444 No Joseph Active 100 MG TAB by mouth E Longer W Farooq daily Active DO AMBIEN 10 1 tab by ZOLPIDEM 02594720062 Active Indigo Active MG TAB mouth at TARTRATE Yokum bedtime DIRECTOR OF GRADUATE MEDICAL EDUCATION as needed for sleep DIFLUCAN 100 1 tablet DIFLUCAN 533949 FLUCONAZOLE Inactive MG TAB by mouth 100 MG TAB daily ALPRAZOLAM Take 1 ALPRAZOLAM ALPRAZOLAM Inactive XR [id number] tablet by XR [id number] mouth at [id number] bedtime TRAMADOL HCL 1-2 TRAMADOL 374101 TRAMADOL HCL Inactive 50 MG TABS tablets HCL 50 MG every 6-8 TABS hours as needed for pain SEROQUEL XR one p.o. SEROQUEL XR QUETIAPINE Inactive 50 MG q. 50 MG FUMARATE [id number] evening [id number] PERMETHRIN 5 apply PERMETHRIN 372017 PERMETHRIN Inactive % CREA neck to 5 % CREA toes tonight and then rinse off in morning. repeat at 7 days DIFLUCAN 100 1 tablet DIFLUCAN 167415 FLUCONAZOLE Inactive MG TAB by mouth 100 MG TAB daily POTASSIUM 1 capsule POTASSIUM POTASSIUM Inactive CHLORIDE CR by mouth CHLORIDE CR CHLORIDE 10 MEQ CPCR daily 10 MEQ CPCR FLUCONAZOLE one p.o. FLUCONAZOLE 061736 FLUCONAZOLE Inactive 100 MG TABS q. day 2 100 MG TABS days TRAMADOL HCL 1 po tid TRAMADOL 280314 TRAMADOL HCL Inactive 50 MG TABS with ES HCL 50 MG Tylenol TABS NECON 1/35 1 po NECON 1/35 NORETHINDRONE- Inactive (28) 1-35 daily (28) 1-35 ETH ESTRADIOL MG-MCG TABS MG-MCG TABS CIPRO 500 MG 1 tablet CIPRO 500 616589 CIPROFLOXACIN Inactive TAB by mouth MG TAB HCL twice daily ADIPEX-P 1/2 tab ADIPEX-P 803610 PHENTERMINE Inactive 37.5 MG CAPS po q am 37.5 MG HCL for CAPS weight loss ABILIFY 2 MG 1 po q hs ABILIFY 2 591083 ARIPIPRAZOLE Inactive TABS for major MG TABS depressio n HYDROCHLOROT 2 tabs HYDROCHLORO 673651 HYDROCHLOROTHI Inactive HIAZIDE 25 every THIAZIDE 25 AZIDE MG TABS morning MG TABS ABILIFY 5 MG one p.o. ABILIFY 5 879303 ARIPIPRAZOLE Inactive TABS q. day MG TABS CIPROFLOXACI Take one CIPROFLOXAC 093044 CIPROFLOXACIN Inactive N HCL 500 MG (1) IN HCL 500 HCL TABS tablet by MG TABS mouth twice a day PROMETHAZINE 1 tab by PROMETHAZIN 562617 PROMETHAZINE Inactive HCL 25 MG mouth E HCL 25 MG HCL TABS every 6 TABS hours as needed PHENTERMINE 1 po q am PHENTERMINE 846195 PHENTERMINE Inactive HCL 37.5 MG for wt. HCL 37.5 MG HCL TABS loss TABS AMARYL 1 MG 1 tab AMARYL 1 MG 839847 GLIMEPIRIDE Inactive TABS twice TABS daily METFORMIN 1 tablet METFORMIN 390564 METFORMIN HCL Inactive HCL 500 MG by mouth HCL 500 MG TABS twice TABS daily SPIRONOLACTO 1 tablet SPIRONOLACT 424266 SPIRONOLACTONE Inactive NE 25 MG TAB by mouth ONE 25 MG daily TAB POTASSIUM 2 capsule POTASSIUM POTASSIUM Inactive CHLORIDE CR by mouth CHLORIDE CR CHLORIDE 10 MEQ CPCR daily 10 MEQ CPCR LISINOPRIL 1 tablet LISINOPRIL 034636 LISINOPRIL Inactive 20 MG TABS by mouth 20 MG TABS daily DIFLUCAN 100 1 tablet DIFLUCAN 19760111 FLUCONAZOLE Inactive MG TABS by mouth 100 MG TABS every other day for 2 doses DIFLUCAN 100 1 tablet DIFLUCAN 458862 FLUCONAZOLE Inactive MG TAB by mouth 100 MG TAB daily x 3 days PREDNISONE 2 tablets PREDNISONE 647820 PREDNISONE Inactive 20 MG TAB today, 20 MG TAB then 1 tablet days 2-4 VYVANSE 20 1 tablet VYVANSE 20 LISDEXAMFETAMI Inactive MG ORAL CAPS daily for MG ORAL NE DIMESYLATE binge CAPS eating disorder TRAMADOL HCL 1/2 po TRAMADOL 160249 TRAMADOL HCL Inactive 50 MG TABS tid with HCL 50 MG ES TABS Tylenol prn pain JANUVIA 100 1 tablet JANUVIA 100 SITAGLIPTIN Inactive MG TABS by mouth MG TABS PHOSPHATE daily AMARYL 1 MG 1 tablet AMARYL 1 MG 352521 GLIMEPIRIDE Inactive ORAL TABS orally ORAL TABS twice daily METFORMIN 2 tablets METFORMIN METFORMIN HCL Inactive HCL 500 MG by mouth HCL 500 MG TB24 twice TB24 daily AMOXICILLIN 2 po BID AMOXICILLIN 088815 AMOXICILLIN Inactive 500 MG CAPS x 10 days 500 MG CAPS PREDNISONE 2 tabs PREDNISONE 794330 PREDNISONE Inactive 20 MG TAB daily for 20 MG TAB 3 days, 1 tab daily for 3 days, 1/2 tab daily for 2 days NITROFURANTO One NITROFURANT 4098821 NITROFURANTOIN Inactive IN MONOHYD capsule OIN MONOHYD MONOHYD MACRO MACRO 100 MG BID for MACRO 100 CAPS UTI MG CAPS PREDNISONE 2 pills PREDNISONE 176574 PREDNISONE Inactive 20 MG TAB daily x 4 20 MG TAB days AZITHROMYCIN 2 po qd x AZITHROMYCI 8317134 AZITHROMYCIN Inactive 250 MG TABS 1 day, [...] HGBA1C - Chemistry sodium, serum 140 mmol/L 965-624 1287/06/03 potassium, serum 3.9 mmol/L 3.5-5.2 chloride, serum [...] Panel - Chemistry sodium, serum 136 mmol/L 037-776 6049/01/04 carbon dioxide, venous blood 27.0 mmol/L 21.0-32.0 potassium, serum 4.6 mmol/L 3.5-5.2 chloride, serum 98 mmol/L 98-107 blood glucose 174 mg/dL 65-110 urea nitrogen, blood 12 mg/dL 7-18 creatinine, serum 0.78 mg/dL 0.55-1.30 alanine aminotransferase (SGPT), serum 65 U/L 12-78 aspartate aminotransferase (SGOT), serum 34 U/L 15-37 calcium, serum 8.9 mg/dL 8.5-10.1 bilirubin, serum, total 0.40 mg/dL 0.00-1.00 cholesterol, serum 219 mg/dL 606-021 9130/01/04 triglyceride, serum, fasting 214 mg/dL 30-200 HDL cholesterol, serum 39 mg/dL 32-96 LDL cholesterol, serum 137 mg/dL 0-130 Lab Report: Lipid Panel - Chemistry cholesterol, serum 157 mg/dL 449-648 6315/08/22 triglyceride, serum, fasting 215 mg/dL 30-200 HDL [...] mg/dL Encounters Code Encounter Date Provider Facility CPT-85705 Level 4 New Patient Yury Benoit MD [facility] 15:17:12 CDT CPT-45668 Level 3 Est. Patient [facility] - 13:37:46 CDT [place] CPT-05199 Level 4 Est. Patient [facility] - 10:01:06 CDT [place] CPT-64460 Level 3 Est. Patient [facility] 08:58:07 CDT CAMPAIGN SPECIALIST CPT-75026 Level 3 Est[facility] DIRECTOR OF GRADUATE MEDICAL EDUCATION CPT-25501 Level 4 Est. Patient [facility] 17:29:53 HEALTH AND SAFETY CONSULTANT CAMPAIGN SPECIALIST CPT-00201 Level 4 Est. Patient [facility] 09:51:54 HEALTH AND SAFETY CONSULTANT CPT-48085 Level 3 Est. Patient [facility] 18:59:38 CDT CPT-57442 Level 3 Est. Patient Joseph Pineda [facility] 14:42:12 CDT -[facility] CPT-83957 Level 3 Est. Patient Joseph Trivedi [facility] 22:18:20 CDT -C CPT-31158 Level 3 Est. Patient Joseph W [facility] 16:46:04 CDT -[facility] CPT-15449 Level 3 Est. Patient Joseph Pineda [facility] 15:39:53 CDT -[facility] CPT-63319 Level 3 Est. Patient Maite Sanchez MD PhD [facility] 13:33:34 CDT -[facility] CPT-89614 Level 3 Est. Patient Joseph Pineda [facility] 11:37:08 CDT -[facility] CPT-12201 Level 3 Est. Patient Joseph Pineda [facility] 17:13:29 HEALTH AND SAFETY CONSULTANT -[facility]HC CPT-53942 Level 3 Est. Patient Joseph Pineda [facility] 18:42:44 CDT CPT-16110 Level 3 Est. Patient Joseph Pineda [facility] 16:25:39 CDT CPT-04229 Level 3 Est. Patient Casey Brower [facility] 09:52:45 CDT -[facility] CPT-34616 Level 3 Est. Patient Joseph Pineda [facility] 11:03:29 HEALTH AND SAFETY CONSULTANT -[facility] CPT-41879 Level 3 Est. Patient Joseph Pineda [facility] 11:03:08 HEALTH AND SAFETY CONSULTANT -[facility] CPT-84144 Level 3 Est. Patient Joseph Pineda [facility] 14:33:31 CDT -[facility] CPT-71846 Level 3 Est. Patient Joseph Pineda [facility] 17:05:02 HEALTH AND SAFETY CONSULTANT -[facility] CPT-09759 Level 3 Est. Patient Joseph Pineda [facility] 17:48:06 HEALTH AND SAFETY CONSULTANT -RHC CPT-65032 Level 3 Est. Patient Joseph Pineda [facility] 14:59:22 HEALTH AND SAFETY CONSULTANT -RHC CPT-11788 Level 3 Est. Patient Joseph Pineda [facility] - 21:45:56 HEALTH AND SAFETY CONSULTANT [place] [facility] CPT-83414 Level 3 Est. Patient Joseph Edwin [facility] 21:29:50 CDT -[facility] CPT-48817 Level 3 Est. Patient Joseph Trivedi DO [facility] 12:41:09 CDT -[facility] Procedures Code Procedure Name Date Entry Date Standard Description CPT-46324 Postop F/U Visit 12:08:35 CDT CPT-17234 Postop F/U Visit 18:20:10 CDT CPT-A4351 Coloplast Female Cath 09:37:10 CDT CPT-60972 Urine Dip (Floor Use Only) 15:17:13 CDT CPT-58809 Dil F ureth int 15:17:13 CDT CPT-35128 Venipuncture Draw Fee 09:19:08 CDT CPT-01897 Lipid - LAB USE ONLY 09:19:07 CDT CPT-JTINJ Asp/Joint Injection 09:26:49 CDT CPT-28133 Chest 2V Frontal and Lat 14:47:43 CDT CPT-JTINJ Asp/Joint Injection 09:51:53 HEALTH AND SAFETY CONSULTANT CPT-OV Office Visit 17:39:05 CDT CPT-OV Office Visit 15:19:50 CDT CPT-37158 Sono transvag pelvis non OB uterus ovaries cervix 18:04:34 CDT CPT-66179 Venipuncture Draw Fee 08:55:49 HEALTH AND SAFETY CONSULTANT
--- OUTSIDE RECORDS SUMMARY | 2016-11-20 13:10 | External Medical Summary | Clinical Summary ---
:1965 Author Organization [facility] Address [address] [place] [address] Phone Allergies, Adverse Reactions, Alerts Allergy Name Reaction Description Start Date Severity Status Provider No Known Allergies Aurelia Rg RPT,RMA Conditions or Problems Problem Name Problem Onset [...] PURPOSES administrative purposes OTHER ABNORMAL 790.29 Resolved Maiet Gutierrez Other abnormal GLUCOSE 05/20 Luara ONEAL glucose PhD ACUTE 466.0 Resolved Maite [...] at a health care facility Sinusitis, 461.1 Active Maite C Acute frontal frontal, acute Laura ONEAL sinusitis PhD Laryngitis, 464.00 Active Maite C Acute acute Laura ONEAL laryngitis PhD without mention of obstruction Binge eating 307.51 Active Joseph Pineda Bulimia nervosa disorder 08/15 08/15 Farooq DO ABNORMAL VAGINAL ICD-626.9 Inactive Maite Sanchez BLEEDING PhD SCABIES ICD-133.0 Inactive Maite Sanchez PhD OT GENERAL ICD-V70.3 Inactive Maiet Sanchez MEDICAL MD PhD EXAMINATION ADMIN PURPOSES OTHER ABNORMAL ICD-790.29 Inactive Maite Sanchez GLUCOSE PhD ACUTE BRONCHITIS ICD-466.0 Inactive Maite Sanchez PhD Medication List Medication Instructions Start Stop Generic NDC Status Provider Patient Date Date Name Instruction VYVANSE 20 1 tablet LISDEXAMFETAMINE 45523807716 Active Joseph Pineda Active MG ORAL daily for DIMESYLATE Farooq DO CAPS binge eating disorder METFORMIN 2 tablet METFORMIN HCL 22136475885 Active Joseph Pineda Active HCL 500 MG daily for Farooq DO TB24 blood sugars LASIX 20 2 tablet by FUROSEMIDE 63927159039 Active Joseph Pineda Active MG TAB mouth daily Farooq DO CELEBREX 1 tablet by CELECOXIB 11515474590 Active Joseph Pineda Active 200 MG mouth daily Farooq DO CAPS with meals PREDNISONE 2 tablets 2 PREDNISONE 43440567566 No Joseph Pineda Active 20 MG TAB today, then 0 Longer Farooq DO 1 tablet 1 Active days 2-4 5 / 0 4 / 3 DIFLUCAN 1 tablet by 2 FLUCONAZOLE 10692251951 No Joseph W Active 100 MG TAB mouth daily 0 Longer Farooq DO x 3 days 1 Active 5 / 0 4 / 3 AMARYL 1 1 tablet GLIMEPIRIDE 35703141809 Active Joseph Pineda Active MG ORAL orally Farooq DO TABS twice daily DIFLUCAN 1 tablet by 2 FLUCONAZOLE 42416058762 No Joseph W Active 100 MG mouth every 0 Longer Farooq DO TABS other day 1 Active for 2 doses 5 / 0 1 / 2 3 ZOFRAN 4 1 po q6hr ONDANSETRON HCL 51015189813 Active Bam Active MG TABS PRN Nausea W Luis ONEAL PREDNISONE 2 tabs 2 PREDNISONE 67679682168 No Joseph Pineda Active 20 MG TAB daily for 3 0 Longer Farooq DO days, 1 tab 1 Active daily for 3 4 days, 1/2 / tab daily 1 for 2 days 0 / 2 5 TRAMADOL 1/2 po tid TRAMADOL HCL 94655406177 Active Joseph Pineda Active HCL 50 MG with ES Farooq DO TABS Tylenol prn pain AMOXICILLI 2 po BID x 2 AMOXICILLIN 76315699787 No Maite C Active N 500 MG 10 days 0 Longer Madril CAPS 1 Active PhD 0 / 2 0 LISINOPRIL 1 tablet by 2 LISINOPRIL 18071941942 No Maite C Active 20 MG TABS mouth 0 Longer Madril daily 1 Active PhD 0 / 1 0 POTASSIUM 2 capsule 2 POTASSIUM CHLORIDE 51558381195 No Joseph Pineda Active CHLORIDE by mouth 0 Longer Farooq DO CR 10 MEQ daily 1 Active CPCR 2 9 SPIRONOLAC 1 tablet by 2 SPIRONOLACTONE 22968374221 No Joseph Pineda Active TONE 25 MG mouth daily 0 Longer Farooq DO TAB 1 Active 4 / 0 8 / 2 9 METFORMIN 1 tablet 2 METFORMIN HCL 31525255647 No Joseph Pineda Active HCL 500 MG by mouth 0 Longer Farooq DO TABS twice daily 1 Active 4 / 0 8 / 2 9 AMARYL 1 1 tab twice 2 GLIMEPIRIDE 32337462924 No Joseph W Active MG TABS daily 0 Longer Farooq DO 1 Active 4 / 0 8 / 2 9 PHENTERMIN 1 po q am 2 PHENTERMINE HCL 84989855932 No Joseph W Active E HCL 37.5 for wt. 0 Longer Farooq DO MG TABS loss 1 Active 3 / 1 2 / 2 3 PROMETHAZI 1 tab by 2 PROMETHAZINE HCL 94686927648 No Joseph W Active NE HCL 25 mouth every 0 Longer Farooq DO MG TABS 6 hours as 1 Active needed 3 / 0 9 / 0 9 CIPROFLOXA Take one 2 CIPROFLOXACIN HCL 54795679201 No Joseph W Active DELORES HCL (1) tablet 0 Longer Farooq DO 500 MG by mouth 1 Active TABS twice a day 3 / 0 9 / 0 9 ABILIFY 5 one p.o. q. 2 ARIPIPRAZOLE 79813370757 No Joseph W Active MG TABS day 0 Longer Farooq DO 1 Active 3 / 0 9 / 0 9 HYDROCHLOR 2 tabs 2 HYDROCHLOROTHIAZID 52463489907 No Joseph W Active OTHIAZIDE every 0 E Longer Farooq DO 25 MG TABS morning 1 Active 3 / 0 6 / 2 7 ABILIFY 2 1 po q hs 2 ARIPIPRAZOLE 19137673754 No Joseph W Active MG TABS for major 0 Longer Farooq DO depression 1 Active 3 / 0 5 / 0 7 ADIPEX-P 1/2 tab po 2 PHENTERMINE HCL 36874026892 No Casey Active 37.5 MG q am for 0 Longer Leonarda CAPS weight loss 1 Active PA 3 / 0 5 / 0 1 CIPRO 500 1 tablet by 2 CIPROFLOXACIN HCL 67541361394 No Casey Active MG TAB mouth twice 0 Longer [place] daily 1 Active PA 3 / 0 5 / 0 1 NECON 1/35 1 po daily 2 NORETHINDRONE-ETH 73272845590 No Casey Active (28) 1-35 0 ESTRADIOL Longer [place] MG-MCG 1 Active PA TABS 3 / 0 5 / 0 1 TRAMADOL 1 po tid 2 TRAMADOL HCL 46712463009 No Casey Active HCL 50 MG with ES 0 Longer [place] TABS Tylenol 1 Active PA 3 / 0 5 / 0 1 FLUCONAZOL one p.o. q. 2 FLUCONAZOLE 90431109281 No Casey Active E 100 MG day 2 days 0 Longer [place] TABS 1 Active PA 3 / 0 5 / 0 1 POTASSIUM 1 capsule 2 POTASSIUM CHLORIDE 52556365874 No Casey Active CHLORIDE by mouth 0 Longer Leonarda CR 10 MEQ daily 1 Active PA CPCR 3 / 0 5 / 0 1 IMIPRAMINE Take 6 IMIPRAMINE HCL 52047200862 Active Joseph W Active HCL 50 MG tablets by Farooq DO TABS mouth at bedtime DIFLUCAN 1 tablet by 2 FLUCONAZOLE 40622477863 No Joseph W Active 100 MG TAB mouth daily 0 Longer Farooq DO 1 Active 2 / 0 2 / 2 4 METOPROLOL 1/2 tab po METOPROLOL 07430497566 Active Joseph W Active TARTRATE bid TARTRATE Farooq DO 25 MG TABS VERAPAMIL 2 po bid VERAPAMIL HCL 34356406003 Active Joseph W Active HCL CR 120 Farooq DO MG TAB CR PERMETHRIN apply neck 2 PERMETHRIN 22674989651 No Joseph W Active 5 % CREA to toes 0 Longer Farooq DO tonight and 1 Active then rinse 2 off in / morning. 0 repeat at 7 1 days / 2 0 SEROQUEL one p.o. q. 2 QUETIAPINE 63955604435 No Joseph W Active XR 50 MG evening 0 FUMARATE Longer Farooq DO [id number] 1 Active 2 / 0 1 / 2 0 TRAMADOL 1-2 tablets 2 TRAMADOL HCL 84592685555 No Joseph W Active HCL 50 MG every 6-8 0 Longer Farooq DO TABS hours as 1 Active needed for 2 pain / 0 1 / 2 0 ALPRAZOLAM one p.o. ALPRAZOLAM 46877675547 Active Joseph W Active 3 MG q.h.s. Farooq DO [id number] ALPRAZOLAM Take 1 2 ALPRAZOLAM 65361610841 No Joseph W Active XR tablet by 0 [id number] Longer Farooq DO [id number] mouth at 1 Active bedtime 1 / 2 9 DIFLUCAN 1 tablet by 2 FLUCONAZOLE 65272421206 No Joseph W Active 100 MG TAB mouth daily 0 Longer Farooq DO 1 Active 0 / 0 6 AMBIEN 10 1 tab by ZOLPIDEM TARTRATE 05967950125 Active Joseph W Active MG TAB mouth at Farooq DO bedtime as needed for sleep DIFLUCAN 100 1 tablet DIFLUCAN 077271 FLUCONAZOLE Inactive MG TAB by mouth 100 MG TAB daily ALPRAZOLAM Take 1 ALPRAZOLAM ALPRAZOLAM Inactive XR [id number] tablet by XR [id number] mouth at [id number] bedtime TRAMADOL HCL 1-2 TRAMADOL 032040 TRAMADOL HCL Inactive 50 MG TABS tablets HCL 50 MG every 6-8 TABS hours as needed for pain SEROQUEL XR one p.o. SEROQUEL XR QUETIAPINE Inactive 50 MG q. evening 50 MG FUMARATE [id number] PERMETHRIN 5 apply neck PERMETHRIN 549590 PERMETHRIN Inactive % CREA to toes 5 % CREA tonight and then rinse off in morning. repeat at 7 days DIFLUCAN 100 1 tablet DIFLUCAN 730847 FLUCONAZOLE Inactive MG TAB by mouth 100 MG TAB daily POTASSIUM 1 capsule POTASSIUM POTASSIUM Inactive CHLORIDE CR by mouth CHLORIDE CR CHLORIDE 10 MEQ CPCR daily 10 MEQ CPCR FLUCONAZOLE one p.o. FLUCONAZOLE 022391 FLUCONAZOLE Inactive 100 MG TABS q. day 2 100 MG TABS days TRAMADOL HCL 1 po tid TRAMADOL 295209 TRAMADOL HCL Inactive 50 MG TABS with ES HCL 50 MG Tylenol TABS NECON 1/35 1 po daily NECON 1/35 NORETHINDRONE- Inactive (28) 1-35 (28) 1-35 ETH ESTRADIOL MG-MCG TABS MG-MCG TABS CIPRO 500 MG 1 tablet CIPRO 500 239001 CIPROFLOXACIN Inactive TAB by mouth MG TAB HCL twice daily ADIPEX-P 1/2 tab po ADIPEX-P 706828 PHENTERMINE Inactive 37.5 MG CAPS q am for 37.5 MG HCL weight CAPS loss ABILIFY 2 MG 1 po q hs ABILIFY 2 558337 ARIPIPRAZOLE Inactive TABS for major MG TABS depression HYDROCHLOROT 2 tabs HYDROCHLORO 845218 HYDROCHLOROTHI Inactive HIAZIDE 25 every THIAZIDE 25 AZIDE MG TABS morning MG TABS ABILIFY 5 MG one p.o. ABILIFY 5 696211 ARIPIPRAZOLE Inactive TABS q. day MG TABS CIPROFLOXACI Take one CIPROFLOXAC 057859 CIPROFLOXACIN Inactive N HCL 500 MG (1) tablet IN HCL 500 HCL TABS by mouth MG TABS twice a day PROMETHAZINE 1 tab by PROMETHAZIN 838627 PROMETHAZINE Inactive HCL 25 MG mouth E HCL 25 MG HCL TABS every 6 TABS hours as needed PHENTERMINE 1 po q am PHENTERMINE 601604 PHENTERMINE Inactive HCL 37.5 MG for wt. HCL 37.5 MG HCL TABS loss TABS AMARYL 1 MG 1 tab AMARYL 1 MG 752436 GLIMEPIRIDE Inactive TABS twice TABS daily METFORMIN 1 tablet METFORMIN 653821 METFORMIN HCL Inactive HCL 500 MG by mouth HCL 500 MG TABS twice TABS daily SPIRONOLACTO 1 tablet SPIRONOLACT 277071 SPIRONOLACTONE Inactive NE 25 MG TAB by mouth ONE 25 MG daily TAB POTASSIUM 2 capsule POTASSIUM POTASSIUM Inactive CHLORIDE CR by mouth CHLORIDE CR CHLORIDE 10 MEQ CPCR daily 10 MEQ CPCR LISINOPRIL 1 tablet LISINOPRIL 672846 LISINOPRIL Inactive 20 MG TABS by mouth 20 MG TABS daily DIFLUCAN 100 1 tablet DIFLUCAN 475600 FLUCONAZOLE Inactive MG TABS by mouth 100 MG TABS every other day for 2 doses DIFLUCAN 100 1 tablet DIFLUCAN 474914 FLUCONAZOLE Inactive MG TAB by mouth 100 MG TAB daily x 3 days PREDNISONE 2 tablets PREDNISONE 954589 PREDNISONE Inactive 20 MG TAB today, 20 MG TAB then 1 tablet days 2-4 AMOXICILLIN 2 po BID x AMOXICILLIN 157968 AMOXICILLIN Inactive 500 MG CAPS 10 days 500 MG CAPS PREDNISONE 2 tabs PREDNISONE 767717 PREDNISONE Inactive 20 MG TAB daily for [...] E&M - 3141-9 250.2 [lb_av] Weight Measured temperature E&M 97.1 [degF] Body temperature weight E&M - 3141-9 236.4 [lb_av] Weight Measured blood pressure, diastolic - 8462-4 62 mm[Hg] BP nunez blood pressure, systolic - 8480-6 121 mm[Hg] BP sys pulse rate E&M - 8867-4 93 /min Heart rate temperature E&M 96.7 [degF] Body temperature weight E&M - 3141-9 234 [lb_av] Weight Measured blood pressure, diastolic - 8462-4 79 mm[Hg] BP nunez blood pressure, systolic - 8480-6 120 mm[Hg] BP sys pulse rate E&M - 8867-4 94 /min Heart rate temperature E&M 97.2 [degF] Body temperature weight E&M - 3141-9 228 [lb_av] Weight Measured Diagnostic Results Date Name Value Unit Range Description Lab Report: Basic Metabolic Panel - Chemistry sodium, serum 137 mmol/L 551-913 8382/08/29 potassium, serum 4.1 mmol/L 3.5-5.2 chloride, serum 100 mmol/L 98-107 carbon dioxide, venous blood 31.1 mmol/L 21.0-32.0 blood glucose 138 mg/dL 65-110 calcium, serum 9.2 mg/dL 8.5-10.1 urea nitrogen, blood 9 mg/dL 7-18 creatinine, serum 0.80 mg/dL 0.60-1.30 Lab Report: CBC, Comp. Metabolic Panel, HGBA1C - Chemistry sodium, serum 140 mmol/L 020-424 2088/04/13 potassium, serum 3.9 mmol/L 3.5-5.2 chloride, serum [...] count 219 10^3/MM^3 10*3/mm3 142-424 Lab Report: FSH AND LH/7137/Adult - Chemistry follicle stimulating hormone, serum 84.0 m[iU]/mL luteinizing hormone, serum 40.2 m[iU]/mL Lab Report: HGBA1C - Chemistry hemoglobin A1C, blood, as % of total hemoglobin 6.1 % 4.3-6.0 Lab Report: HGBA1C, CBC - Chemistry hemoglobin [...] 142-424 Lab Report: Thyroid Stimulating Hormone (L), MICROALBUMIN, Basic Metabol ... - Chemistry TSH 2.24 m[iU]/mL 0.36-3.74 albumin/creatinine ratio, urine < 30 mg/g mg/g{creat} 0-29 sodium, serum 140 mmol/L 077-721 0802/07/21 potassium, serum 3.9 mmol/L 3.5-5.2 chloride, serum 102 mmol/L 98-107 carbon dioxide, venous blood 33.4 mmol/L 21.0-32.0 blood glucose 156 mg/dL 65-110 calcium, serum 8.4 mg/dL 8.5-10.1 urea nitrogen, blood 14 mg/dL 7-18 creatinine, serum 1.00 mg/dL 0.60-1.30 Lab Report: Thyroid Stimulating Hormone (L), MICROALBUMIN, Basic Metabol ... - Lab microalbumin, urine 80 0-19 Encounters Code Encounter Date Provider Facility CPT-75386 Level 3 Est. Patient Joseph Pineda [facility] 14:42:12 CDT -C CPT-69294 Level 3 Est. Patient Joseph Edwin [facility] 22:18:20 CDT -RHC CPT-79429 Level 3 Est. Patient [facility] 16:46:04 CDT -RHC CPT-58468 Level 3 Est. Patient [facility] 15:39:53 CDT -RHC CPT-28628 Level 3 Est. Patient Maite Sanchez MD [facility] [address] 13:33:34 CDT -RHC CPT-18695 Level 3 Est. Patient [facility] 11:37:08 CDT -RHC CPT-44922 Level 3 Est. Patient [facility] 17:13:29 [employer]ED[employer]PERATOR -RHC CPT-48768 Level 3 Est. Patient [facility] 18:42:44 CDT CPT-30278 Level 3 Est. Patient [facility] 16:25:39 CDT CPT-52633 Level 3 Est. Patient Casey Brower [facility] 09:52:45 CDT -RHC CPT-72746 Level 3 Est. 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 Patient [facility] 14:33:31 CDT -RHC CPT-17797 Level 3 Est. 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 Patient Joseph Edwin Farooq [facility] 14:59:22 [facility] CPT-21562 Level 3 Est. Patient Joseph Trivedi [facility] - 21:45:56 [facility] CPT-10877 Level 3 Est. Patient Joseph Pineda [facility] 21:29:50 [facility] CPT-09003 Level 3 Est. 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
--- OUTSIDE RECORDS SUMMARY | 2016-11-20 13:10 | External Medical Summary | Clinical Summary ---
:1965 Author Organization [facility] [employer] Address [address] [address] Phone Allergies, Adverse Reactions, Alerts Allergy Name Reaction Description Start Date Severity Status Provider NKDA Critical Active Indigo Yonickieum UPPER EXTREMITY SURGEON NKDA Critical No Longer Indigo Yokum UPPER EXTREMITY SURGEON Active NKDA Critical Inactive Adrianna Elder Conditions [...] Resolved Indigo Other malaise 05/24 07/02 Yokum UPPER EXTREMITY SURGEON and fatigue SLEEP APNEA, 327.23 Active Joseph Pineda Obstructive OBSTRUCTIVE, 06/27 06/27 Farooq DO sleep apnea MILD (adult) (pediatric) OVERWEIGHT 278.02 Inactive Joseph Pineda Overweight 06/28 06/28 Farooq DO Obesity 278.00 Active Indigo Obesity, 06/28 10/18 Yokum UPPER EXTREMITY SURGEON unspecified OTH GENERAL V70.3 Resolved Maite Gutierrez Other general MEDICAL Laura ONEAL medical EXAMINATION PhD examination for ADMIN PURPOSES administrative purposes OTHER ABNORMAL 790.29 Resolved Maite C Other abnormal GLUCOSE 05/20 Laura ONEAL glucose PhD ACUTE 466.0 Resolved Maite C Acute BRONCHITIS 09/02 Laura ONEAL bronchitis PhD DEPENDENT 782.3 Resolved Indigo Edema EDEMA, LEGS, 10/29 10/18 Yokum UPPER EXTREMITY SURGEON BILATERAL HYPOKALEMIA, 276.8 Resolved Indigo Hypopotassemia MILD 10/29 07/02 Youm UPPER EXTREMITY SURGEON Diabetes, Type 250.00 Inactive Joseph Pineda Diabetes 2 06/27 06/27 Farooq DO mellitus without mention of complication, type II or unspecified type, not stated as uncontrolled Diabetes 250.02 Resolved Indigo Diabetes mellitus, type 06/27 UPPER EXTREMITY SURGEON mellitus II, without mention uncontrolled of complication, [...] Resolved Indigo Routine gynecological 12/14 07/02 Yo UPPER EXTREMITY SURGEON gynecological examination examination Postmenopausal 627.1 Resolved Indigo Postmenopausal bleeding 12/14 UPPER EXTREMITY SURGEON bleeding Screening for V76.51 Resolved Indigo Screening for malignant 12/26 07/02 Yokum UPPER EXTREMITY SURGEON malignant neoplasms of neoplasms of colon colon Insomnia, 307.42 Active Indigo 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 EXTREMITY SURGEON disorder of initiating or maintaining sleep Establish care V68.89 Resolved Indigo Encounters for or get 01/16 07/02 Yo UPPER EXTREMITY SURGEON other specified acquainted administrative visit purpose Weakness, left 342.90 Resolved Indigo Hemiplegia, side of body 06/20 10/18 Yokum UPPER EXTREMITY SURGEON unspecified, affecting unspecified side TIA 435.9 Active Indigo Unspecified 06/20 07/02 Yokum UPPER EXTREMITY SURGEON transient cerebral ischemia Knee pain, 719.46 Active Indigo Pain in joint bilateral 06/20 10/18 Yokum UPPER EXTREMITY SURGEON involving lower leg Bronchitis 490 Resolved Indigo Bronchitis, not 07/23 10/18 Yokum UPPER EXTREMITY SURGEON specified as acute or chronic Diabetes 357.2 Active Maliheh Polyneuropathy mellitus, 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IV THERAPY NURSE 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y Knee pain, 719.46 Active Indigo Pain in joint right 06/20 10/18 Yokum UPPER EXTREMITY SURGEON involving lower leg Jesi 112.3 Active Indigo Candidiasis of intertrigo 10/09 10/18 Yokum UPPER EXTREMITY SURGEON skin and nails ABNORMAL VAGINAL ICD-626.9 Inactive Maite Sanchez BLEEDING MD PhD SCABIES ICD-133.0 Inactive Maite Sanchez PhD FATIGUE ICD-780.79 Inactive Indigo Yokum UPPER EXTREMITY SURGEON OTH GENERAL ICD-V70.3 Inactive Maite Sanchez MEDICAL PhD EXAMINATION ADMIN PURPOSES OTHER ABNORMAL ICD-790.29 Inactive Maite Sanchez GLUCOSE PhD ACUTE BRONCHITIS ICD-466.0 Inactive Maite Sanchez PhD DEPENDENT EDEMA, ICD-782.3 Inactive Indigo Yokum LEGS, BILATERAL UPPER EXTREMITY SURGEON HYPOKALEMIA, MILD ICD-276.8 Inactive Indigo Yokum UPPER EXTREMITY SURGEON Diabetes mellitus, ICD-250.02 Inactive Indigo Yokum type II, UPPER EXTREMITY SURGEON uncontrolled Sinusitis, ICD-461.1 Inactive Ismael Coyne frontal, acute Amandeep ONEAL Laryngitis, acute ICD-464.00 Inactive Ismael Coyne Amandeep ONEAL Routine ICD-V72.31 Inactive Indigo Yokum gynecological UPPER EXTREMITY SURGEON examination Postmenopausal ICD-627.1 Inactive Indigo Yokum 2015 bleeding UPPER EXTREMITY SURGEON Screening for ICD-V76.51 Inactive Indigo Yokum 2015 malignant UPPER EXTREMITY SURGEON neoplasms of colon Establish care or ICD-V68.89 Inactive Indigo Yokum get acquainted UPPER EXTREMITY SURGEON visit Weakness, left ICD-342.90 Inactive Indigo Yokum side of body UPPER EXTREMITY SURGEON Bronchitis ICD-490 Inactive Indigo Yokum UPPER EXTREMITY SURGEON Medication List Medication Instructions Start Stop Generic NDC Status Provider Patient Date Date Name Instruction NYSTATIN apply to NYSTATIN [id number] Active Indigo Active 511837 UNIT/GM rash TID Yokum CREA PRN UPPER EXTREMITY SURGEON TROKENDI XR 2 tab daily TOPIRAMATE 99454753516 Active Maliheh Active 100 MG ORAL Ziglari [id number] IV THERAPY NURSE METOPROLOL 1 tab po METOPROLOL 30328838588 Active Indigo Active TARTRATE 25 MG bid TARTRATE Yokum TABS UPPER EXTREMITY SURGEON AZITHROMYCIN 2 po qd x 1 2 AZITHROMYCIN 38295022841 No Jillina Active 250 MG TABS day, then 1 0 Longer Frazell po qd x 4 1 Active UPPER EXTREMITY SURGEON days 6 / 0 3 / 2 6 PREDNISONE 20 2 pills 2 PREDNISONE 54501067612 No Jillina Active MG TAB daily x 4 0 Longer [place] days 1 Active UPPER EXTREMITY SURGEON 6 / 0 3 / 2 5 PIOGLITAZONE take one a PIOGLITAZONE 49743204968 Active Maliheh Active HCL 30 MG ORAL day HCL Ziglari TABS IV THERAPY NURSE JANUVIA 100 MG 1 tablet by 2 SITAGLIPTIN 91544229173 No Indigo Active TABS mouth daily 0 PHOSPHATE Longer Yokum 1 Active UPPER EXTREMITY SURGEON 6 / 0 2 / 6 ATORVASTATIN 1 pill by ATORVASTATIN 91360839570 Active Indigo Active CALCIUM 10 MG mouth CALCIUM Yokum TABS nightly, UPPER EXTREMITY SURGEON for cholesterol ASPIRIN 81 MG 1 po qd ASPIRIN 14965106451 Active Indigo Active ORAL TABS Yokum UPPER EXTREMITY SURGEON NITROFURANTOIN One capsule 2 NITROFURANTOI 34685587004 No Indigo Active MONOHYD MACRO BID for UTI 0 N MONOHYD Longer Yokum 100 MG CAPS 1 MACRO Active UPPER EXTREMITY SURGEON 6 / 0 / 3 METFORMIN HCL 2 tablets METFORMIN HCL 67772295248 Active Indigo Active 500 MG TB24 by mouth Yokum twice daily UPPER EXTREMITY SURGEON TRAMADOL HCL 1/2 po tid 2 TRAMADOL HCL 77409923586 No Jillina Active 50 MG TABS with ES 0 Longer [place] Tylenol prn 1 Active UPPER EXTREMITY SURGEON pain 5 / 0 2 VYVANSE 20 MG 1 tablet 2 LISDEXAMFETAM 68061275647 No Jillina Active ORAL CAPS daily for 0 INE Longer [place] binge 1 DIMESYLATE Active UPPER EXTREMITY SURGEON eating 5 disorder / 0 2 LASIX 20 MG 2 tablet by FUROSEMIDE 37750958581 Active Indigo Active TAB mouth daily Yokum UPPER EXTREMITY SURGEON CELEBREX 200 1 tablet by CELECOXIB 86322152220 Active Indigo Active MG CAPS mouth daily Yokum with meals UPPER EXTREMITY SURGEON PREDNISONE 20 2 tablets 2 PREDNISONE 46573749564 No Joseph W Active MG TAB today, then 0 Longer Farooq DO 1 tablet 1 Active days 2-4 5 / 0 3 DIFLUCAN 100 1 tablet by 2 FLUCONAZOLE 48710540015 No Joseph W Active MG TAB mouth daily 0 Longer Farooq DO x 3 days 1 Active 5 / 0 4 / 3 AMARYL 1 MG 1 tablet GLIMEPIRIDE 23432403377 Active Indigo Active ORAL TABS orally Yokum twice daily UPPER EXTREMITY SURGEON DIFLUCAN 100 1 tablet by 2 FLUCONAZOLE 64007287058 No Joseph W Active MG TABS mouth every 0 Longer Farooq DO other day 1 Active for 2 doses 5 / 0 1 / 2 3 ZOFRAN 4 MG 1 po q6hr ONDANSETRON 80649486311 Active Joseph W Active TABS PRN Nausea HCL Farooq DO PREDNISONE 20 2 tabs 2 PREDNISONE 98734783832 No Joseph W Active MG TAB daily for 3 0 Longer Farooq DO days, 1 tab 1 Active daily for 3 4 days, 1/2 / tab daily 1 for 2 days 0 / 2 5 AMOXICILLIN 2 po BID x 2 AMOXICILLIN 13594902974 No Maite C Active 500 MG CAPS 10 days 0 Longer Madril 1 Active PhD 0 / 2 0 LISINOPRIL 20 1 tablet by 2 LISINOPRIL 82980072816 No Maite C Active MG TABS mouth 0 Longer Madril daily 1 Active PhD 0 / 0 POTASSIUM 2 capsule 2 POTASSIUM 58889046877 No Joseph W Active CHLORIDE CR 10 by mouth 0 CHLORIDE Longer Farooq DO MEQ CPCR daily 1 Active 4 / 0 8 / 2 9 SPIRONOLACTONE 1 tablet by 2 SPIRONOLACTON 51037211224 No Joseph W Active 25 MG TAB mouth daily 0 E Longer Farooq DO 1 Active 4 / 0 8 / 2 9 METFORMIN HCL 1 tablet 2 METFORMIN HCL 93218670961 No Joseph W Active 500 MG TABS by mouth 0 Longer Farooq DO twice daily 1 Active 4 / 0 8 / 2 9 AMARYL 1 MG 1 tab twice 2 GLIMEPIRIDE 74369650273 No Joseph W Active TABS daily 0 Longer Farooq DO 1 Active 4 / 0 8 / 2 9 PHENTERMINE 1 po q am 2 PHENTERMINE 62899516423 No Joseph W Active HCL 37.5 MG for wt. 0 HCL Longer Farooq DO TABS loss 1 Active / 2 / 2 3 PROMETHAZINE 1 tab by 2 PROMETHAZINE 75230838337 No Joseph W Active HCL 25 MG TABS mouth every 0 HCL Longer Farooq DO 6 hours as 1 Active needed 3 / 0 9 / 0 9 CIPROFLOXACIN Take one 2 CIPROFLOXACIN 07305290346 No Joseph W Active HCL 500 MG (1) tablet 0 HCL Longer Farooq DO TABS by mouth 1 Active twice a day 3 / 0 9 / 0 9 ABILIFY 5 MG one p.o. q. 2 ARIPIPRAZOLE 82453189530 No Joseph W Active TABS day 0 Longer Farooq DO 1 Active 3 / 0 9 / 0 9 HYDROCHLOROTHI 2 tabs 2 HYDROCHLOROTH 59180918802 No Joseph W Active AZIDE 25 MG every 0 IAZIDE Longer Farooq DO TABS morning 1 Active 3 / 0 6 / 2 7 ABILIFY 2 MG 1 po q hs 2 ARIPIPRAZOLE 45086985649 No Joseph W Active TABS for major 0 Longer Farooq DO depression 1 Active 3 / 0 5 / 0 7 ADIPEX-P 37.5 1/2 tab po 2 PHENTERMINE 87905125054 No Casey Active MG CAPS q am for 0 HCL Longer [place] weight loss 1 Active PA 3 / 0 5 / 0 1 CIPRO 500 MG 1 tablet by 2 CIPROFLOXACIN 30168846906 No Casey Active TAB mouth twice 0 HCL Longer [place] daily 1 Active PA 3 / 0 5 / 0 1 NECON 1/35 1 po daily 2 NORETHINDRONE 09173996514 No Casey Active (28) 1-35 0 -ETH Longer [place] MG-MCG TABS 1 ESTRADIOL Active PA 3 / 0 5 / 0 1 TRAMADOL HCL 1 po tid 2 TRAMADOL HCL 31631499087 No Casey Active 50 MG TABS with ES 0 Longer [place] Tylenol 1 Active PA 3 / 0 5 / 0 1 FLUCONAZOLE one p.o. q. 2 FLUCONAZOLE 06552998392 No Casey Active 100 MG TABS day 2 days 0 Longer [place] 1 Active PA 3 / 0 5 / 0 1 POTASSIUM 1 capsule 2 POTASSIUM 86147294968 No Casey Active CHLORIDE CR 10 by mouth 0 CHLORIDE Longer Leonarda MEQ CPCR daily 1 Active PA 3 / 0 5 / 0 1 IMIPRAMINE HCL Take 6 IMIPRAMINE 59476197459 Active Indigo Active 50 MG TABS tablets by HCL Yokum mouth at UPPER EXTREMITY SURGEON bedtime DIFLUCAN 100 1 tablet by 2 FLUCONAZOLE 66308819929 No Joseph W Active MG TAB mouth daily 0 Longer Farooq DO 1 Active 2 / 0 2 / 2 4 VERAPAMIL HCL 2 po bid VERAPAMIL HCL 29725078520 Active Indigo Active CR 120 MG TAB Yokum CR UPPER EXTREMITY SURGEON PERMETHRIN 5 % apply neck 2 PERMETHRIN 82057449720 No Joseph W Active CREA to toes 0 Longer Farooq DO tonight and 1 Active then rinse 2 off in / morning. 0 repeat at 7 1 days / 2 0 SEROQUEL XR 50 one p.o. q. 2 QUETIAPINE 18815373783 No Joseph W Active MG [id number] evening 0 FUMARATE Longer Farooq DO 1 Active 2 / 0 1 / 2 0 TRAMADOL HCL 1-2 tablets 2 TRAMADOL HCL 55070956444 No Joseph W Active 50 MG TABS every 6-8 0 Longer Farooq DO hours as 1 Active needed for 2 pain / 0 1 / 2 0 ALPRAZOLAM 3 one p.o. ALPRAZOLAM 46183462034 Active Indigo Active MG [id number] q.h.s. Yokum UPPER EXTREMITY SURGEON ALPRAZOLAM XR Take 1 2 ALPRAZOLAM 62339125000 No Joseph W Active [id number] tablet by 0 [id number] Longer Farooq DO mouth at 1 Active bedtime 1 / 2 9 DIFLUCAN 100 1 tablet by 2 FLUCONAZOLE 42573271462 No Joseph W Active MG TAB mouth daily 0 Longer Farooq DO 1 Active 0 / 0 6 AMBIEN 10 MG 1 tab by ZOLPIDEM 11136968776 Active Indigo Active TAB mouth at TARTRATE Yokum bedtime as UPPER EXTREMITY SURGEON needed for sleep DIFLUCAN 100 1 tablet DIFLUCAN 564656 FLUCONAZOLE Inactive MG TAB by mouth 100 MG TAB daily ALPRAZOLAM Take 1 ALPRAZOLAM ALPRAZOLAM Inactive XR [id number] tablet by XR [id number] mouth at [id number] bedtime TRAMADOL HCL 1-2 TRAMADOL 824121 TRAMADOL HCL Inactive 50 MG TABS tablets HCL 50 MG every 6-8 TABS hours as needed for pain SEROQUEL XR one p.o. SEROQUEL XR QUETIAPINE Inactive 50 MG q. 50 MG FUMARATE [id number] evening [id number] PERMETHRIN 5 apply PERMETHRIN 545723 PERMETHRIN Inactive % CREA neck to 5 % CREA toes tonight and then rinse off in morning. repeat at 7 days DIFLUCAN 100 1 tablet DIFLUCAN 953499 FLUCONAZOLE Inactive MG TAB by mouth 100 MG TAB daily POTASSIUM 1 capsule POTASSIUM POTASSIUM Inactive CHLORIDE CR by mouth CHLORIDE CR CHLORIDE 10 MEQ CPCR daily 10 MEQ CPCR FLUCONAZOLE one p.o. FLUCONAZOLE 19760111 FLUCONAZOLE Inactive 100 MG TABS q. day 2 100 MG TABS days TRAMADOL HCL 1 po tid TRAMADOL 395814 TRAMADOL HCL Inactive 50 MG TABS with ES HCL 50 MG Tylenol TABS NECON 1/35 1 po NECON 1/35 NORETHINDRONE- Inactive (28) 1-35 daily (28) 1-35 ETH ESTRADIOL MG-MCG TABS MG-MCG TABS CIPRO 500 MG 1 tablet CIPRO 500 011370 CIPROFLOXACIN Inactive TAB by mouth MG TAB HCL twice daily ADIPEX-P 1/2 tab ADIPEX-P 035534 PHENTERMINE Inactive 37.5 MG CAPS po q am 37.5 MG HCL for CAPS weight loss ABILIFY 2 MG 1 po q hs ABILIFY 2 475621 ARIPIPRAZOLE Inactive TABS for major MG TABS depressio n HYDROCHLOROT 2 tabs HYDROCHLORO 429953 HYDROCHLOROTHI Inactive HIAZIDE 25 every THIAZIDE 25 AZIDE MG TABS morning MG TABS ABILIFY 5 MG one p.o. ABILIFY 5 035969 ARIPIPRAZOLE Inactive TABS q. day MG TABS CIPROFLOXACI Take one CIPROFLOXAC 165937 CIPROFLOXACIN Inactive N HCL 500 MG (1) IN HCL 500 HCL TABS tablet by MG TABS mouth twice a day PROMETHAZINE 1 tab by PROMETHAZIN 315508 PROMETHAZINE Inactive HCL 25 MG mouth E HCL 25 MG HCL TABS every 6 TABS hours as needed PHENTERMINE 1 po q am PHENTERMINE 110729 PHENTERMINE Inactive HCL 37.5 MG for wt. HCL 37.5 MG HCL TABS loss TABS AMARYL 1 MG 1 tab AMARYL 1 MG 600912 GLIMEPIRIDE Inactive TABS twice TABS daily METFORMIN 1 tablet METFORMIN 569505 METFORMIN HCL Inactive HCL 500 MG by mouth HCL 500 MG TABS twice TABS daily SPIRONOLACTO 1 tablet SPIRONOLACT 148160 SPIRONOLACTONE Inactive NE 25 MG TAB by mouth ONE 25 MG daily TAB POTASSIUM 2 capsule POTASSIUM POTASSIUM Inactive CHLORIDE CR by mouth CHLORIDE CR CHLORIDE 10 MEQ CPCR daily 10 MEQ CPCR LISINOPRIL 1 tablet LISINOPRIL 846535 LISINOPRIL Inactive 20 MG TABS by mouth 20 MG TABS daily DIFLUCAN 100 1 tablet DIFLUCAN 269569 FLUCONAZOLE Inactive MG TABS by mouth 100 MG TABS every other day for 2 doses DIFLUCAN 100 1 tablet DIFLUCAN 849985 FLUCONAZOLE Inactive MG TAB by mouth 100 MG TAB daily x 3 days PREDNISONE 2 tablets PREDNISONE 325192 PREDNISONE Inactive 20 MG TAB today, 20 MG TAB then 1 tablet days 2-4 VYVANSE 20 1 tablet VYVANSE 20 LISDEXAMFETAMI Inactive MG ORAL CAPS daily for MG ORAL NE DIMESYLATE binge CAPS eating disorder TRAMADOL HCL 1/2 po TRAMADOL 734766 TRAMADOL HCL Inactive 50 MG TABS tid with HCL 50 MG ES TABS Tylenol prn pain JANUVIA 100 1 tablet JANUVIA 100 SITAGLIPTIN Inactive MG TABS by mouth MG TABS PHOSPHATE daily AMOXICILLIN 2 po BID AMOXICILLIN 227343 AMOXICILLIN Inactive 500 MG CAPS x 10 days 500 MG CAPS PREDNISONE 2 tabs PREDNISONE 912970 PREDNISONE Inactive 20 MG TAB daily for 20 MG TAB 3 days, 1 tab daily for 3 days, 1/2 tab daily for 2 days NITROFURANTO One NITROFURANT 0754940 NITROFURANTOIN Inactive IN MONOHYD capsule OIN MONOHYD MONOHYD MACRO MACRO 100 MG BID for MACRO 100 CAPS UTI MG CAPS PREDNISONE 2 pills PREDNISONE 191072 PREDNISONE Inactive 20 MG TAB daily x 4 20 MG TAB days AZITHROMYCIN 2 po qd x AZITHROMYCI 8322194 AZITHROMYCIN Inactive 250 MG TABS 1 day, N 250 MG then 1 po TABS qd x 4 days Advance Directives Directive Description Start Date PERMISSION TO SHARE Vital Signs Date Name Value Unit Range Description blood pressure, diastolic - 8462-4 63 mm[Hg] [...] E&M - 3141-9 238 [lb_av] Weight Measured Diagnostic Results Date Name Value Unit Range Description Lab Report: Basic Metabolic Panel, HGBA1C - Chemistry sodium, serum 140 mmol/L 308-790 7418/06/03 potassium, serum 3.9 mmol/L 3.5-5.2 chloride, serum [...] 198 10^3/MM^3 10*3/mm3 142-424 Lab Report: Chlamydia/GC APTIMA/[id number] - Lab chlamydia DNA probe NOT DETECTED NOT DETECTED Lab Report: Chlamydia/GC APTIMA/[id number] - Microbiology Neisseria gonorrhoeae DNA probe NOT DETECTED NOT DETECTED Lab Report: Comp. Metabolic Panel, Lipid Panel - Chemistry sodium, serum 136 mmol/L 896-545 0520/01/04 carbon dioxide, venous blood 27.0 mmol/L 21.0-32.0 potassium, serum 4.6 mmol/L 3.5-5.2 chloride, serum 98 mmol/L 98-107 blood glucose 174 mg/dL 65-110 urea nitrogen, blood 12 mg/dL 7-18 creatinine, serum 0.78 mg/dL 0.55-1.30 alanine aminotransferase (SGPT), serum 65 U/L 12-78 aspartate aminotransferase (SGOT), serum 34 U/L 15-37 calcium, serum 8.9 mg/dL 8.5-10.1 bilirubin, serum, total 0.40 mg/dL 0.00-1.00 cholesterol, serum 219 mg/dL 983-455 4018/01/04 triglyceride, serum, fasting 214 mg/dL 30-200 HDL cholesterol, serum 39 mg/dL 32-96 LDL cholesterol, serum 137 mg/dL 0-130 Lab Report: HGBA1C, CBC - Chemistry hemoglobin [...] mg/g mg/g{creat} 0-29 sodium, serum 140 mmol/L 599-248 0861/07/21 potassium, serum 3.9 mmol/L 3.5-5.2 chloride, serum [...] mg/dL Encounters Code Encounter Date Provider Facility CPT-33255 Level 4 Est. Patient Indigo Sexton [facility] - 10:01:06 CDT [place] CPT-91735 Level 3 Est. Patient Arnold Berrios [facility] 08:58:07 CDT IV THERAPY NURSE CPT-63436 Level 3 Est. Patient Faby Marino [facility] 14:40:56 CDT UPPER EXTREMITY SURGEON CPT-51311 Level 4 Est. Patient Arnold Berrios [facility] 17:29:53 HELP DESK SUPERVISOR IV THERAPY NURSE CPT-61542 Level 4 Est. Patient Indigo Sexton [facility] 09:51:54 HELP DESK SUPERVISOR CPT-77255 Level 3 Est. Patient Indigo Sexton [facility] 18:59:38 CDT CPT-33211 Level 3 Est. Patient Joseph Pineda [facility] 14:42:12 CDT -[facility] CPT-58827 Level 3 Est. Patient Joseph Pineda [facility] 22:18:20 CDT -[facility] CPT-09757 Level 3 Est. Patient Joseph Pineda [facility] 16:46:04 CDT -[facility] CPT-23312 Level 3 Est. Patient [place] Edwin [facility] 15:39:53 CDT -[facility] CPT-28300 Level 3 Est. Patient Maite Sanchez MD [facility] 13:33:34 CDT -[facility] CPT-96125 Level 3 Est. Patient Joseph Pineda [facility] 11:37:08 CDT -[facility] CPT-03351 Level 3 Est. Patient Joseph Pineda [facility] 17:13:29 HELP DESK SUPERVISOR -[facility] CPT-84290 Level 3 Est. Patient Joseph Pineda [facility] 18:42:44 CDT CPT-05712 Level 3 Est. Patient Joseph Pineda [facility] 16:25:39 CDT CPT-27728 Level 3 Est. Patient Casey ARCHIBALD [facility] 09:52:45 CDT -[facility] CPT-23191 Level 3 Est. Patient Joseph Pineda [facility] 11:03:29 HELP DESK SUPERVISOR -[facility] CPT-54376 Level 3 Est. Patient Joseph Edwin [facility] 11:03:08 HELP DESK SUPERVISOR -[facility] CPT-20526 Level 3 Est. Patient Joseph Pineda [facility] 14:33:31 CDT -[facility] CPT-49630 Level 3 Est. Patient Joseph Pineda [facility] 17:05:02 HELP DESK SUPERVISOR -[facility] CPT-76408 Level 3 Est. Patient Joseph Pineda [facility] 17:48:06 HELP DESK SUPERVISOR -[facility] CPT-63835 Level 3 Est. Patient Joseph Pineda [facility] 14:59:22 HELP DESK SUPERVISOR -[facility] CPT-31732 Level 3 Est. Patient Joseph Pineda [facility] - 21:45:56 HELP DESK SUPERVISOR [place] [facility] CPT-91666 Level 3 Est. Patient Joseph Pineda [facility] 21:29:50 CDT -[facility] CPT-65792 Level 3 Est. Patient Joseph Pineda [facility] 12:41:09 CDT -[facility] Procedures Code Procedure Name Date Entry Date Standard Description CPT-JTINJ Asp/Joint Injection 09:26:49 CDT CPT-10701 Chest 2V Frontal and Lat 14:47:43 CDT CPT-JTINJ Asp/Joint Injection 09:51:53 HELP DESK SUPERVISOR CPT-OV Office Visit 17:39:05 CDT CPT-OV Office Visit 15:19:50 CDT CPT-96652 Sono transvag pelvis non OB uterus ovaries cervix 18:04:34 CDT CPT-11437 Venipuncture Draw Fee 08:55:49 HELP DESK SUPERVISOR
--- OUTSIDE RECORDS SUMMARY | 2016-11-20 13:10 | External Medical Summary | Clinical Summary ---
:1965 Author Organization [employer] Address [address] [place] [address] Phone Allergies, Adverse Reactions, Alerts Allergy Name Reaction Description Start Date Severity Status Provider NKDA Critical No Longer Indigo Yokum NURSING UNIT MANAGER Active NKDA Critical Inactive Adrianna Elder [...] 401.9 Active Joseph Pineda Unspecified 05/24 Farooq CODRERO essential hypertension FATIGUE 780.79 Resolved Indigo Other malaise 05/24 07/02 Yokum NURSING UNIT MANAGER and fatigue SLEEP APNEA, 327.23 Active [...] Resolved Indigo Hypopotassemia MILD 10/29 07/02 Yo NURSING UNIT MANAGER Diabetes, Type 250.00 Inactive Joseph Pineda Diabetes 2 06/27 06/27 Farooq DO mellitus without mention of complication, type II or unspecified type, not stated as uncontrolled Diabetes 250.02 Active Indigo Diabetes mellitus, type 06/27um NURSING UNIT MANAGER mellitus II, without mention uncontrolled of [...] Resolved Indigo Routine gynecological 12/14 07/02 Yo NURSING UNIT MANAGER gynecological examination examination Postmenopausal 627.1 Resolved Indigo Postmenopausal bleeding 12/14 07/02 Youm NURSING UNIT MANAGER bleeding Screening for V76.51 Resolved Indigo Screening for malignant 12/26 07/02 Yokum NURSING UNIT MANAGER malignant neoplasms of neoplasms of colon colon Insomnia, 307.42 Active Indigo 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 NURSING UNIT MANAGER disorder of initiating or maintaining sleep Establish care V68.89 Resolved Indigo Encounters for or get 01/16 07/02 Yo NURSING UNIT MANAGER other specified acquainted administrative visit purpose Weakness, left 342.90 Active Indigo Hemiplegia, side of body 06/20 06/20 Yokum NURSING UNIT MANAGER unspecified, affecting unspecified side TIA 435.9 Active Indigo Unspecified 06/20 07/02 Yokum NURSING UNIT MANAGER transient cerebral ischemia Knee pain, 719.46 Active Indigo Pain in joint bilateral 06/20 07/02 Yokum NURSING UNIT MANAGER involving lower leg Bronchitis 490 Active Jillina Bronchitis, not 07/23 07/23 Frazell specified as NURSING UNIT MANAGER acute or chronic ABNORMAL VAGINAL ICD-626.9 Inactive Maite Matt Sanchez BLEEDING PhD SCABIES ICD-133.0 Inactive Maite C Laura MD PhD FATIGUE ICD-780.79 Inactive Indigo Yokum NURSING UNIT MANAGER OTH GENERAL ICD-V70.3 Inactive Maite C Laura MEDICAL MD PhD EXAMINATION ADMIN PURPOSES OTHER ABNORMAL ICD-790.29 Inactive Maite C Laura GLUCOSE MD PhD ACUTE BRONCHITIS ICD-466.0 Inactive Maite C Laura PhD HYPOKALEMIA, MILD ICD-276.8 Inactive Indigo Yokum NURSING UNIT MANAGER Sinusitis, ICD-461.1 Inactive Ismael Coyne frontal, acute Amandeep ONEAL Laryngitis, acute ICD-464.00 Inactive Ismael Coyne Amandeep ONEAL Routine ICD-V72.31 Inactive Indigo Yokum gynecological NURSING UNIT MANAGER examination Postmenopausal ICD-627.1 Inactive Indigo Yokum 2015 bleeding NURSING UNIT MANAGER Screening for ICD-V76.51 Inactive Indigo Yokum 2015 malignant NURSING UNIT MANAGER neoplasms of colon Establish care or ICD-V68.89 Inactive Indigo Yokum get acquainted NURSING UNIT MANAGER visit Medication List Medication Instructions Start Stop Generic NDC Status Provider Patient Date Date Name Instruction AZITHROMYCIN 2 po AZITHROMYCIN 58366475776 Active Jillina Active 250 MG TABS qd x Frazell 1 NURSING UNIT MANAGER day, then 1 po qd x 4 days PREDNISONE 20 2 PREDNISONE 29851972805 Active Jillina Active MG TAB pills Frazell daily NURSING UNIT MANAGER x 4 days PIOGLITAZONE take PIOGLITAZONE 24884604374 Active Maliheh Active HCL 30 MG one a HCL Ziglari ORAL TABS day JOINT FILLER JANUVIA 100 1 SITAGLIPTIN 66441858066 No Indigo Active MG TABS table PHOSPHATE Longer Yokum t by Active NURSING UNIT MANAGER mouth daily ATORVASTATIN 1 ATORVASTATIN 71910243227 Active Indigo Active CALCIUM 10 MG pill CALCIUM Yokum TABS by NURSING UNIT MANAGER mouth night ly, for lavelle stero l TROKENDI XR 1 tab TOPIRAMATE 49350227390 Active Indigo Active 100 MG ORAL daily Yokum [id number] NURSING UNIT MANAGER ASPIRIN 81 MG 1 po ASPIRIN 99734398355 Active Indigo Active ORAL TABS qd Yokum NURSING UNIT MANAGER NITROFURANTOI One NITROFURANTOI 11317502872 No Indigo Active N MONOHYD capsu N MONOHYD Longer Yokum MACRO 100 MG le MACRO Active NURSING UNIT MANAGER CAPS BID for UTI METFORMIN HCL 2 METFORMIN HCL 34179782448 Active Indigo Active 500 MG TB24 table Yokum ts by NURSING UNIT MANAGER mouth twice daily TRAMADOL HCL 1/2 TRAMADOL HCL 49649959518 No Jillina Active 50 MG TABS po Longer Frazell tid Active NURSING UNIT MANAGER with ES Tylen ol prn pain VYVANSE 20 MG 1 LISDEXAMFETAM 60332739484 No Jillina Active ORAL CAPS table INE Longer Frazell t DIMESYLATE Active NURSING UNIT MANAGER daily for binge eatin g disor janiya LASIX 20 MG 2 FUROSEMIDE 26019203826 Active Joseph W Active TAB table Farooq DO t by mouth daily CELEBREX 200 1 CELECOXIB 95474994001 Active Joseph W Active MG CAPS table Farooq DO t by mouth daily with meals PREDNISONE 20 2 PREDNISONE 30730015474 No Joseph W Active MG TAB table Longer Farooq DO ts Active today , then 1 table t days 2-4 DIFLUCAN 100 1 FLUCONAZOLE 05961586495 No Joseph W Active MG TAB table Longer Farooq DO t by Active mouth daily x 3 days AMARYL 1 MG 1 GLIMEPIRIDE 96308047367 Active Joseph W Active ORAL TABS table Farooq DO t orall y twice daily DIFLUCAN 100 1 FLUCONAZOLE 08196637645 No Joseph W Active MG TABS table Longer Farooq DO t by Active mouth every other day for 2 doses ZOFRAN 4 MG 1 po ONDANSETRON 13915834676 Active Joseph Pineda Active TABS q6hr HCL Farooq DO PRN Nause a PREDNISONE 20 2 PREDNISONE 31333761402 No Joseph Pineda Active MG TAB tabs Longer Farooq DO daily Active for 3 days, 1 tab daily for 3 days, 1/2 tab daily for 2 days AMOXICILLIN 2 po AMOXICILLIN 88696480582 No Maite C Active 500 MG CAPS BID x Longer Madril 10 Active PhD days LISINOPRIL 20 1 LISINOPRIL 29869386699 No Maite C Active MG TABS table Longer Madril t by Active PhD mouth chilo y POTASSIUM 2 POTASSIUM 59024174592 No Joseph Pineda Active CHLORIDE CR capsu CHLORIDE Longer Farooq DO 10 MEQ CPCR le by Active mouth daily SPIRONOLACTON 1 SPIRONOLACTON 85429764033 No Joseph Pineda Active E 25 MG TAB table E Longer Farooq DO t by Active mouth daily METFORMIN HCL 1 METFORMIN HCL 17242554751 No Jospeh Pineda Active 500 MG TABS table Longer Farooq DO t by Active mouth twice daily AMARYL 1 MG 1 tab GLIMEPIRIDE 71491839749 No Joseph Pineda Active TABS twice Longer Farooq DO daily Active PHENTERMINE 1 po PHENTERMINE 60494849477 No Joseph W Active HCL 37.5 MG q am HCL Longer Farooq DO TABS for Active wt. loss PROMETHAZINE 1 tab PROMETHAZINE 59860765200 No Joseph W Active HCL 25 MG by HCL Longer Farooq DO TABS mouth Active every 6 hours as neede d CIPROFLOXACIN Take CIPROFLOXACIN 17447259178 No Joseph W Active HCL 500 MG one HCL Longer Farooq DO TABS (1) Active table t by mouth twice a day ABILIFY 5 MG one ARIPIPRAZOLE 81464368921 No Joseph W Active TABS p.o. Longer Farooq DO q. Active day HYDROCHLOROTH 2 HYDROCHLOROTH 90125642330 No Joseph W Active IAZIDE 25 MG tabs IAZIDE Longer Farooq DO TABS every Active morni ng ABILIFY 2 MG 1 po ARIPIPRAZOLE 14498774577 No Joseph W Active TABS q hs Longer Farooq DO for Active major depre ssion ADIPEX-P 37.5 / PHENTERMINE 41232453513 No Casey Active MG CAPS tab HCL Longer Leonarda po q Active PA am for weigh t loss CIPRO 500 MG 1 CIPROFLOXACIN 45091341701 No Casey Active TAB table HCL Longer [place] t by Active PA mouth twice daily NECON 35 1 po NORETHINDRONE 30280907840 No Casey Active (28) 1-35 daily -ETH Longer Denver MG-MCG TABS ESTRADIOL Active PA TRAMADOL HCL 1 po TRAMADOL HCL 06213405109 No Casey Active 50 MG TABS tid Longer Leonarda with Active PA ES Tylen ol FLUCONAZOLE one FLUCONAZOLE 90479840747 No Casey Active 100 MG TABS p.o. Longer [place] q. Active PA day 2 days POTASSIUM 1 POTASSIUM 08475236589 No Casey Active CHLORIDE CR capsu CHLORIDE Longer Leonarda 10 MEQ CPCR le by Active PA mouth daily IMIPRAMINE Take IMIPRAMINE 65106805517 Active Joseph W Active HCL 50 MG 6 HCL Farooq DO TABS table ts by mouth at bedti me DIFLUCAN 100 1 FLUCONAZOLE 02481271896 No Joseph W Active MG TAB table Longer Farooq DO t by Active mouth daily METOPROLOL 1/2 METOPROLOL 00339048788 Active Joseph W Active TARTRATE 25 tab TARTRATE Farooq DO MG TABS po bid VERAPAMIL HCL 2 po VERAPAMIL HCL 58957554173 Active Joseph W Active CR 120 MG TAB bid Farooq DO CR PERMETHRIN 5 apply PERMETHRIN 16232207502 No Joseph W Active % CREA neck Longer Farooq DO to Active toes tonig ht and then rinse off in morni ng. repea t at 7 days SEROQUEL XR one QUETIAPINE 58677160581 No Joseph W Active 50 MG p.o. FUMARATE Longer Farooq DO [id number] q. Active eveni ng TRAMADOL HCL 1-2 TRAMADOL HCL 66118139115 No Joseph W Active 50 MG TABS table Longer Farooq DO ts Active every 6-8 hours as neede d for pain ALPRAZOLAM 3 one ALPRAZOLAM 71836332037 Active Indigo Active MG [id number] p.o. Yokum q.h.s NURSING UNIT MANAGER . ALPRAZOLAM XR Take ALPRAZOLAM 29936861066 No Joseph W Active HG88Z-HRS 1 [id number] Longer Farooq DO table Active t by mouth at bedti me DIFLUCAN 100 1 FLUCONAZOLE 90048965052 No Joseph W Active MG TAB table Longer Farooq DO t by Active mouth daily AMBIEN 10 MG 1 tab ZOLPIDEM 49235579507 Active Afsaneh Active TAB by TARTRATE Gericke, mouth MA at bedti me as neede d for sleep DIFLUCAN 100 1 tablet DIFLUCAN 985793 FLUCONAZOLE Inactive MG TAB by mouth 100 MG TAB daily ALPRAZOLAM Take 1 ALPRAZOLAM ALPRAZOLAM Inactive XR [id number] tablet by XR [id number] mouth at [id number] bedtime TRAMADOL HCL 1-2 TRAMADOL 233432 TRAMADOL HCL Inactive 50 MG TABS tablets HCL 50 MG every 6-8 TABS hours as needed for pain SEROQUEL XR one p.o. SEROQUEL XR QUETIAPINE Inactive 50 MG q. 50 MG FUMARATE [id number] evening [id number] PERMETHRIN 5 apply PERMETHRIN 428067 PERMETHRIN Inactive % CREA neck to 5 % CREA toes tonight and then rinse off in morning. repeat at 7 days DIFLUCAN 100 1 tablet DIFLUCAN 888140 FLUCONAZOLE Inactive MG TAB by mouth 100 MG TAB daily POTASSIUM 1 capsule POTASSIUM POTASSIUM Inactive CHLORIDE CR by mouth CHLORIDE CR CHLORIDE 10 MEQ CPCR daily 10 MEQ CPCR FLUCONAZOLE one p.o. FLUCONAZOLE 19760111 FLUCONAZOLE Inactive 100 MG TABS q. day 2 100 MG TABS days TRAMADOL HCL 1 po tid TRAMADOL 059133 TRAMADOL HCL Inactive 50 MG TABS with ES HCL 50 MG Tylenol TABS NECON 1/35 1 po NECON 1/35 NORETHINDRONE- Inactive (28) 1-35 daily (28) 1-35 ETH ESTRADIOL MG-MCG TABS MG-MCG TABS CIPRO 500 MG 1 tablet CIPRO 500 738768 CIPROFLOXACIN Inactive TAB by mouth MG TAB HCL twice daily ADIPEX-P 1/2 tab ADIPEX-P 384350 PHENTERMINE Inactive 37.5 MG CAPS po q am 37.5 MG HCL for CAPS weight loss ABILIFY 2 MG 1 po q hs ABILIFY 2 882358 ARIPIPRAZOLE Inactive TABS for major MG TABS depressio n HYDROCHLOROT 2 tabs HYDROCHLORO 796663 HYDROCHLOROTHI Inactive HIAZIDE 25 every THIAZIDE 25 AZIDE MG TABS morning MG TABS ABILIFY 5 MG one p.o. ABILIFY 5 595637 ARIPIPRAZOLE Inactive TABS q. day MG TABS CIPROFLOXACI Take one CIPROFLOXAC 541019 CIPROFLOXACIN Inactive N HCL 500 MG (1) IN HCL 500 HCL TABS tablet by MG TABS mouth twice a day PROMETHAZINE 1 tab by PROMETHAZIN 685235 PROMETHAZINE Inactive HCL 25 MG mouth E HCL 25 MG HCL TABS every 6 TABS hours as needed PHENTERMINE 1 po q am PHENTERMINE 832489 PHENTERMINE Inactive HCL 37.5 MG for wt. HCL 37.5 MG HCL TABS loss TABS AMARYL 1 MG 1 tab AMARYL 1 MG 864963 GLIMEPIRIDE Inactive TABS twice TABS daily METFORMIN 1 tablet METFORMIN 079236 METFORMIN HCL Inactive HCL 500 MG by mouth HCL 500 MG TABS twice TABS daily SPIRONOLACTO 1 tablet SPIRONOLACT 018828 SPIRONOLACTONE Inactive NE 25 MG TAB by mouth ONE 25 MG daily TAB POTASSIUM 2 capsule POTASSIUM POTASSIUM Inactive CHLORIDE CR by mouth CHLORIDE CR CHLORIDE 10 MEQ CPCR daily 10 MEQ CPCR LISINOPRIL 1 tablet LISINOPRIL 081453 LISINOPRIL Inactive 20 MG TABS by mouth 20 MG TABS daily DIFLUCAN 100 1 tablet DIFLUCAN 808840 FLUCONAZOLE Inactive MG TABS by mouth 100 MG TABS every other day for 2 doses DIFLUCAN 100 1 tablet DIFLUCAN 123922 FLUCONAZOLE Inactive MG TAB by mouth 100 MG TAB daily x 3 days PREDNISONE 2 tablets PREDNISONE 604991 PREDNISONE Inactive 20 MG TAB today, 20 MG TAB then 1 tablet days 2-4 VYVANSE 20 1 tablet VYVANSE 20 LISDEXAMFETAMI Inactive MG ORAL CAPS daily for MG ORAL NE DIMESYLATE binge CAPS eating disorder TRAMADOL HCL 1/2 po TRAMADOL 193458 TRAMADOL HCL Inactive 50 MG TABS tid with HCL 50 MG ES TABS Tylenol prn pain JANUVIA 100 1 tablet JANUVIA 100 SITAGLIPTIN Inactive MG TABS by mouth MG TABS PHOSPHATE daily AMOXICILLIN 2 po BID AMOXICILLIN 477424 AMOXICILLIN Inactive 500 MG CAPS x 10 days 500 MG CAPS PREDNISONE 2 tabs PREDNISONE 255345 PREDNISONE Inactive 20 MG TAB daily for 20 MG TAB 3 days, 1 tab daily for 3 days, 1/2 tab daily for 2 days NITROFURANTO One NITROFURANT 5651696 NITROFURANTOIN Inactive IN MONOHYD capsule OIN MONOHYD [...] HGBA1C - Chemistry sodium, serum 140 mmol/L 200-575 1682/04/13 potassium, serum 3.9 mmol/L 3.5-5.2 chloride, serum [...] 198 10^3/MM^3 10*3/mm3 142-424 Lab Report: Chlamydia/GC APTIMA/[id number] - Lab chlamydia DNA probe NOT DETECTED NOT DETECTED Lab Report: Chlamydia/GC APTIMA/29984 - Microbiology Neisseria gonorrhoeae DNA probe NOT DETECTED NOT DETECTED Lab Report: Comp. Metabolic Panel, Lipid Panel - Chemistry sodium, serum 136 mmol/L 297-494 8346/01/04 carbon dioxide, venous blood 27.0 mmol/L 21.0-32.0 potassium, serum 4.6 mmol/L 3.5-5.2 chloride, serum 98 mmol/L 98-107 blood glucose 174 mg/dL 65-110 urea nitrogen, blood 12 mg/dL 7-18 creatinine, serum 0.78 mg/dL 0.55-1.30 alanine aminotransferase (SGPT), serum 65 U/L 12-78 aspartate aminotransferase (SGOT), serum 34 U/L 15-37 calcium, serum 8.9 mg/dL 8.5-10.1 bilirubin, serum, total 0.40 mg/dL 0.00-1.00 cholesterol, serum 219 mg/dL 546-890 7246/01/04 triglyceride, serum, fasting 214 mg/dL 30-200 HDL [...] mg/g mg/g{creat} 0-29 sodium, serum 140 mmol/L 917-653 1798/07/21 potassium, serum 3.9 mmol/L 3.5-5.2 chloride, serum [...] Yes Encounters Code Encounter Date Provider Facility CPT-22732 Level 3 Est. Patient Faby Marino [facility] 14:40:56 CDT [facility] CPT-07847 Level 4 Est. Patient Arnold Berrios [facility] 17:29:53 PHYSICAL THERAPIST JOINT FILLER CPT-55935 Level 4 Est[facility]ER[facility] CPT-29410 Level 3 Est. Patient Indigo Garciaomi [facility] 18:59:38 CDT CPT-99487 Level [address] [facility] 14:42:12 CDT -[facility] CPT-11967 Level [address] [facility] 22:18:20 CDT -[facility] CPT-90869 Level [address] [facility] 16:46:04 CDT -[facility] CPT-33050 Level [address] [facility] 15:39:53 CDT -[facility]HC CPT-56547 Level 3 Est. Patient Maite Sanchez MD [facility] 13:33:34 CDT -RHC CPT-94560 Level [address] [facility] 11:37:08 CDT -[facility]HC CPT-92652 Level 3 Est. Patient Joseph Edwin [place] 17:13:29 PHYSICAL THERAPIST -RHC CPT-12254 Level 3 Est. Patient Joseph Edwin [place] 18:42:44 CDT CPT-82045 Level [address] [facility] 16:25:39 CDT CPT-11851 Level 3 Est. Patient Casey ARCHIBALD [facility] 09:52:45 CDT -[facility] CPT-90202 Level [address] [facility] 11:03:29 PHYSICAL THERAPIST -[facility] CPT-73015 Level [address] [facility] 11:03:08 PHYSICAL THERAPIST -RHC CPT-47434 Level [address] [facility] 14:33:31 CDT -RHC CPT-86299 Level [address] [facility] 17:05:02 PHYSICAL THERAPIST -RHC CPT-09206 Level [address] [facility] 17:48:06 PHYSICAL THERAPIST -RHC CPT-00139 Level [address] [facility] 14:59:22 PHYSICAL THERAPIST -RHC CPT-10305 Level [address] [facility] - 21:45:56 PHYSICAL THERAPIST [place] [facility] CPT-09958 Level [address] [facility] 21:29:50 CDT -RHC CPT-12299 Level [address] [facility] 12:41:09 CDT -RHC Procedures Code Procedure Name Date Entry Date Standard Description CPT-04347 Chest 2V Frontal and Lat 14:47:43 CDT CPT-JTINJ Asp/Joint Injection 09:51:53 PHYSICAL THERAPIST CPT-OV Office Visit 17:39:05 CDT CPT-OV Office Visit 15:19:50 CDT CPT-44797 Sono transvag pelvis non OB uterus ovaries cervix 18:04:34 CDT CPT-99122 Venipuncture Draw Fee 08:55:49 PHYSICAL THERAPIST
--- OUTSIDE RECORDS SUMMARY | 2016-11-20 13:11 | External Medical Summary | Clinical Summary ---
:1965 Author Organization [facility] [employer] Address [address] [address] Phone Allergies, Adverse Reactions, Alerts Allergy Name Reaction Description Start Date Severity Status Provider NKDA Critical Active Indigomikayla Jordanum TRACTOR TECHNICIAN NKDA Critical No Longer Indigo Yokum TRACTOR TECHNICIAN Active NKDA Critical Inactive Adrianna Elder [...] Resolved Indigo Other malaise 05/24 07/02 Yokum TRACTOR TECHNICIAN and fatigue SLEEP APNEA, 327.23 Active Joseph Pineda Obstructive OBSTRUCTIVE, 06/27 06/27 Farooq DO sleep apnea MILD (adult) (pediatric) OVERWEIGHT 278.02 Inactive Joseph Pineda Overweight 06/28 06/28 Farooq DO Obesity 278.00 Active Indigo Obesity, 06/28 10/18 Yokum TRACTOR TECHNICIAN unspecified OTH GENERAL V70.3 Resolved Maite Gutierrez Other general MEDICAL Laura ONEAL medical EXAMINATION PhD examination for ADMIN PURPOSES administrative purposes OTHER ABNORMAL 790.29 Resolved Maite C Other abnormal GLUCOSE 05/20 Laura ONEAL glucose PhD ACUTE 466.0 Resolved Maite C Acute BRONCHITIS 09/02 Laura ONEAL bronchitis PhD DEPENDENT 782.3 Resolved Indigo Edema EDEMA, LEGS, 10/29 10/18 Yokum TRACTOR TECHNICIAN BILATERAL HYPOKALEMIA, 276.8 Resolved Indigo Hypopotassemia MILD 10/29 07/02 Youm TRACTOR TECHNICIAN Diabetes, Type 250.00 Inactive Joseph Pineda Diabetes 2 06/27 06/27 Farooq DO mellitus without mention of complication, type II or unspecified type, not stated as uncontrolled Diabetes 250.02 Resolved Indigo Diabetes mellitus, type 06/27 TRACTOR TECHNICIAN mellitus II, without mention uncontrolled of complication, [...] Resolved Indigo Routine gynecological 12/14 07/02 Yo TRACTOR TECHNICIAN gynecological examination examination Postmenopausal 627.1 Resolved Indigo Postmenopausal bleeding 12/14 TRACTOR TECHNICIAN bleeding Screening for V76.51 Resolved Indigo Screening for malignant 12/26 07/02 Yokum TRACTOR TECHNICIAN malignant neoplasms of neoplasms of colon colon Insomnia, 307.42 Active Indigo 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 TECHNICIAN disorder of initiating or maintaining sleep Establish care V68.89 Resolved Indigo Encounters for or get 01/16 07/02 Yo TRACTOR TECHNICIAN other specified acquainted administrative visit purpose Weakness, left 342.90 Resolved Indigo Hemiplegia, side of body 06/20 10/18 Yokum TRACTOR TECHNICIAN unspecified, affecting unspecified side TIA 435.9 Active Indigo Unspecified 06/20 07/02 Yokum TRACTOR TECHNICIAN transient cerebral ischemia Knee pain, 719.46 Active Indigo Pain in joint bilateral 06/20 10/18 Yokum TRACTOR TECHNICIAN involving lower leg Bronchitis 490 Resolved Indigo Bronchitis, not 07/23 10/18 Yokum TRACTOR TECHNICIAN specified as acute or chronic Diabetes 357.2 Active Maliheh Polyneuropathy mellitus, 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MEDICAL RECORDS ADMINISTRATOR 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y Knee pain, 719.46 Active Indigo Pain in joint right 06/20 10/18 Yokum TRACTOR TECHNICIAN involving lower leg Jesi 112.3 Active Indigo Candidiasis of intertrigo 10/09 10/18 Yokum TRACTOR TECHNICIAN skin and nails Hyperlipidemia 272.4 Active Anne Other and 12/24 12/24 Neil unspecified RMA hyperlipidemia Incontinence, 788.33 Active Indigo Mixed mixed, 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 TRACTOR TECHNICIAN incontinence urge/stress (female) (male) Female stress 625.6 Active Yury AnthonyCarlos Enrique Stress incontinence 01/03 01/03 Cy patel MD female ABNORMAL VAGINAL ICD-626.9 Inactive Maite Sanchez BLEEDING PhD SCABIES ICD-133.0 Inactive Maite Sanchez PhD FATIGUE ICD-780.79 Inactive Indigo Yokum TRACTOR TECHNICIAN OTH GENERAL ICD-V70.3 Inactive Maite Sanchez MEDICAL PhD EXAMINATION ADMIN PURPOSES OTHER ABNORMAL ICD-790.29 Inactive Maite Sanchez GLUCOSE PhD ACUTE BRONCHITIS ICD-466.0 Inactive Maite Matt Sanchez PhD DEPENDENT EDEMA, ICD-782.3 Inactive Indigo Yokum LEGS, BILATERAL TRACTOR TECHNICIAN HYPOKALEMIA, MILD ICD-276.8 Inactive Indigo Yokum TRACTOR TECHNICIAN Diabetes mellitus, ICD-250.02 Inactive Indigo Yokum type II, TRACTOR TECHNICIAN uncontrolled Sinusitis, ICD-461.1 Inactive Ismael Coyne frontal, acute Amandeep ONEAL Laryngitis, acute ICD-464.00 Inactive Ismael Coyne Amandeep ONELA Routine ICD-V72.31 Inactive Indigo Yokum gynecological TRACTOR TECHNICIAN examination Postmenopausal ICD-627.1 Inactive Indigo Yokum 2015 bleeding TRACTOR TECHNICIAN Screening for ICD-V76.51 Inactive Indigo Yokum 2015 malignant TRACTOR TECHNICIAN neoplasms of colon Establish care or ICD-V68.89 Inactive Indigo Yokum get acquainted TRACTOR TECHNICIAN visit Weakness, left ICD-342.90 Inactive Indigo Yokum side of body TRACTOR TECHNICIAN Bronchitis ICD-490 Inactive Indigo Yokum TRACTOR TECHNICIAN Medication List Medication Instructions Start Stop Generic NDC Status Provider Patient Date Date Name Instruction METFORMIN 2 tablets METFORMIN 18623640294 No Indigo Active HCL 500 MG by mouth HCL Longer Yokum TB24 twice Active TRACTOR TECHNICIAN daily AMARYL 1 MG 1 tablet GLIMEPIRID 22172261432 No Indigo Active ORAL TABS orally E Longer Yokum twice Active TRACTOR TECHNICIAN daily NYSTATIN apply to NYSTATIN 95983435078 Active Indigo Active 439120 rash TID Yokum UNIT/GM PRN TRACTOR TECHNICIAN CREA TROKENDI XR 2 tab TOPIRAMATE 83831403334 Active Malihe Active 100 MG ORAL daily h [id number] Ziglar i MEDICAL RECORDS ADMINISTRATOR METOPROLOL 1 tab po METOPROLOL 43884865989 Active Indigo Active TARTRATE 25 bid TARTRATE Yokum MG TABS TRACTOR TECHNICIAN AZITHROMYCI 2 po qd x AZITHROMYC 78761858030 No Jillin Active N 250 MG 1 day, IN Longer a TABS then 1 po Active Frazel qd x 4 l TRACTOR TECHNICIAN days PREDNISONE 2 pills PREDNISONE 71289506341 No Jillin Active 20 MG TAB daily x 4 Longer a days Active Frazel l TRACTOR TECHNICIAN PIOGLITAZON take one PIOGLITAZO 99038521427 Active Malihe Active E HCL 30 MG a day NE HCL h ORAL TABS Ziglar i MEDICAL RECORDS ADMINISTRATOR JANUVIA 100 1 tablet SITAGLIPTI 13764196727 No Indigo Active MG TABS by mouth N Longer Yokum daily PHOSPHATE Active TRACTOR TECHNICIAN ATORVASTATI 1 pill by ATORVASTAT 44133333594 Active Indigo Active N CALCIUM mouth IN CALCIUM Yokum 10 MG TABS nightly, TRACTOR TECHNICIAN for cholester ol ASPIRIN 81 1 po qd ASPIRIN 84199441321 Active Indigo Active MG ORAL Yokum TABS TRACTOR TECHNICIAN NITROFURANT One NITROFURAN 40650257120 No Indigo Active OIN MONOHYD capsule TOIN Longer Yokum MACRO 100 BID for MONOHYD Active TRACTOR TECHNICIAN MG CAPS UTI MACRO TRAMADOL 1/2 po TRAMADOL 61869612503 No Jillin Active HCL 50 MG tid with HCL Longer a TABS ES Active Frazel Tylenol l TRACTOR TECHNICIAN prn pain VYVANSE 20 1 tablet LISDEXAMFE 10318644409 No Jillin Active MG ORAL daily for TAMINE Longer a CAPS binge DIMESYLATE Active Frazel eating l TRACTOR TECHNICIAN disorder LASIX 20 MG 2 tablet FUROSEMIDE 37587099895 Active Indigo Active TAB by mouth Yokum daily TRACTOR TECHNICIAN CELEBREX 1 tablet CELECOXIB 47045342122 Active Indigo Active 200 MG CAPS by mouth Yokum daily TRACTOR TECHNICIAN with meals PREDNISONE 2 tablets PREDNISONE 42761510854 No Joseph Active 20 MG TAB today, Longer W Farooq then 1 Active DO tablet days 2-4 DIFLUCAN 1 tablet FLUCONAZOL 50313039082 No Joseph Active 100 MG TAB by mouth E Longer W Farooq daily x 3 Active DO days DIFLUCAN 1 tablet FLUCONAZOL 36855503989 No Joseph Active 100 MG TABS by mouth E Longer W Farooq every Active DO other day for 2 doses ZOFRAN 4 MG 1 po q6hr ONDANSETRO 52936062588 Active Joseph Active TABS PRN N HCL W Farooq Nausea DO PREDNISONE 2 tabs PREDNISONE 46645960307 No Joseph Active 20 MG TAB daily for Longer W Farooq 3 days, 1 Active DO tab daily for 3 days, 1/2 tab daily for 2 days AMOXICILLIN 2 po BID AMOXICILLI 73572209830 No Maite C Active 500 MG CAPS x 10 days N Longer Madril Active PhD LISINOPRIL 1 tablet LISINOPRIL 79668876749 No Maite C Active 20 MG TABS by mouth Longer Madril daily Active PhD POTASSIUM 2 capsule POTASSIUM 95463587256 No Joseph Active CHLORIDE CR by mouth CHLORIDE Longer W Farooq 10 MEQ CPCR daily Active DO SPIRONOLACT 1 tablet SPIRONOLAC 44999998373 No Joseph Active ONE 25 MG by mouth TONE Longer W Farooq TAB daily Active DO METFORMIN 1 tablet METFORMIN 74799451699 No Joseph Active HCL 500 MG by mouth HCL Longer W Farooq TABS twice Active DO daily AMARYL 1 MG 1 tab GLIMEPIRID 62703737041 No Joseph Active TABS twice E Longer W Farooq daily Active DO PHENTERMINE 1 po q am PHENTERMIN 99044275298 No Joseph Active HCL 37.5 MG for wt. E HCL Longer W Farooq TABS loss Active DO PROMETHAZIN 1 tab by PROMETHAZI 15346035346 No Joseph Active E HCL 25 MG mouth NE HCL Longer W Farooq TABS every 6 Active DO hours as needed CIPROFLOXAC Take one CIPROFLOXA 34816075242 No Joseph Active IN HCL 500 (1) DELORES HCL Longer W Farooq MG TABS tablet by Active DO mouth twice a day ABILIFY 5 one p.o. ARIPIPRAZO 73052551132 No Joseph Active MG TABS q. day LE Longer W Farooq Active DO HYDROCHLORO 2 tabs HYDROCHLOR 12469416516 No Joseph Active THIAZIDE 25 every OTHIAZIDE Longer W Farooq MG TABS morning Active DO ABILIFY 2 1 po q hs ARIPIPRAZO 11676081252 No Joseph Active MG TABS for major LE Longer W Farooq depressio Active DO n ADIPEX-P 1/2 tab PHENTERMIN 56750854011 No Casey Active 37.5 MG po q am E HCL Longer Leonarda CAPS for Active PA weight loss CIPRO 500 1 tablet CIPROFLOXA 09548245314 No Casey Active MG TAB by mouth DELORES HCL Longer Leonarda twice Active PA daily NECON 1/35 1 po NORETHINDR 53187937219 No Casey Active (28) 1-35 daily ONE-ETH Longer Leonarda MG-MCG TABS ESTRADIOL Active PA TRAMADOL 1 po tid TRAMADOL 63873789109 No Casey Active HCL 50 MG with ES HCL Longer Leonarda TABS Tylenol Active PA FLUCONAZOLE one p.o. FLUCONAZOL 64147497407 No Casey Active 100 MG TABS q. day 2 E Longer Leonarda days Active PA POTASSIUM 1 capsule POTASSIUM 47681644344 No Casey Active CHLORIDE CR by mouth CHLORIDE Longer 10 MEQ CPCR daily Active PA IMIPRAMINE Take 6 IMIPRAMINE 93885353880 Active Indigo Active HCL 50 MG tablets HCL Yokum TABS by mouth TRACTOR TECHNICIAN at bedtime DIFLUCAN 1 tablet FLUCONAZOL 46503467919 No Joseph Active 100 MG TAB by mouth E Longer W Farooq daily Active DO VERAPAMIL 2 po bid VERAPAMIL 40364594638 Active Indigo Active HCL CR 120 HCL Yokum MG TAB CR TRACTOR TECHNICIAN PERMETHRIN apply PERMETHRIN 01590609260 No Joseph Active 5 % CREA neck to Longer W Farooq toes Active DO tonight and then rinse off in morning. repeat at 7 days SEROQUEL XR one p.o. QUETIAPINE 11283526588 No Joseph Active 50 MG q. FUMARATE Longer W Farooq [id number] evening Active DO TRAMADOL 1-2 TRAMADOL 19363977496 No Joseph Active HCL 50 MG tablets HCL Longer W Farooq TABS every 6-8 Active DO hours as needed for pain ALPRAZOLAM one p.o. ALPRAZOLAM 05870363926 Active Indigo Active 3 MG q.h.s. Yokum [id number] TRACTOR TECHNICIAN ALPRAZOLAM Take 1 ALPRAZOLAM 57800874370 No Joseph Active XR tablet by [id number] Longer W Farooq [id number] mouth at Active DO bedtime DIFLUCAN 1 tablet FLUCONAZOL 77241168801 No Joseph Active 100 MG TAB by mouth E Longer W Farooq daily Active DO AMBIEN 10 1 tab by ZOLPIDEM 69876216720 Active Indigo Active MG TAB mouth at TARTRATE Yokum bedtime TRACTOR TECHNICIAN as needed for sleep DIFLUCAN 100 1 tablet DIFLUCAN 559445 FLUCONAZOLE Inactive MG TAB by mouth 100 MG TAB daily ALPRAZOLAM Take 1 ALPRAZOLAM ALPRAZOLAM Inactive XR [id number] tablet by XR [id number] mouth at [id number] bedtime TRAMADOL HCL 1-2 TRAMADOL 578208 TRAMADOL HCL Inactive 50 MG TABS tablets HCL 50 MG every 6-8 TABS hours as needed for pain SEROQUEL XR one p.o. SEROQUEL XR QUETIAPINE Inactive 50 MG q. 50 MG FUMARATE [id number] evening [id number] PERMETHRIN 5 apply PERMETHRIN 394723 PERMETHRIN Inactive % CREA neck to 5 % CREA toes tonight and then rinse off in morning. repeat at 7 days DIFLUCAN 100 1 tablet DIFLUCAN 200279 FLUCONAZOLE Inactive MG TAB by mouth 100 MG TAB daily POTASSIUM 1 capsule POTASSIUM POTASSIUM Inactive CHLORIDE CR by mouth CHLORIDE CR CHLORIDE 10 MEQ CPCR daily 10 MEQ CPCR FLUCONAZOLE one p.o. FLUCONAZOLE 354097 FLUCONAZOLE Inactive 100 MG TABS q. day 2 100 MG TABS days TRAMADOL HCL 1 po tid TRAMADOL 849183 TRAMADOL HCL Inactive 50 MG TABS with ES HCL 50 MG Tylenol TABS NECON 1/35 1 po NECON 1/35 NORETHINDRONE- Inactive (28) 1-35 daily (28) 1-35 ETH ESTRADIOL MG-MCG TABS MG-MCG TABS CIPRO 500 MG 1 tablet CIPRO 500 157863 CIPROFLOXACIN Inactive TAB by mouth MG TAB HCL twice daily ADIPEX-P 1/2 tab ADIPEX-P 453989 PHENTERMINE Inactive 37.5 MG CAPS po q am 37.5 MG HCL for CAPS weight loss ABILIFY 2 MG 1 po q hs ABILIFY 2 841471 ARIPIPRAZOLE Inactive TABS for major MG TABS depressio n HYDROCHLOROT 2 tabs HYDROCHLORO 648517 HYDROCHLOROTHI Inactive HIAZIDE 25 every THIAZIDE 25 AZIDE MG TABS morning MG TABS ABILIFY 5 MG one p.o. ABILIFY 5 897964 ARIPIPRAZOLE Inactive TABS q. day MG TABS CIPROFLOXACI Take one CIPROFLOXAC 356487 CIPROFLOXACIN Inactive N HCL 500 MG (1) IN HCL 500 HCL TABS tablet by MG TABS mouth twice a day PROMETHAZINE 1 tab by PROMETHAZIN 991974 PROMETHAZINE Inactive HCL 25 MG mouth E HCL 25 MG HCL TABS every 6 TABS hours as needed PHENTERMINE 1 po q am PHENTERMINE 218456 PHENTERMINE Inactive HCL 37.5 MG for wt. HCL 37.5 MG HCL TABS loss TABS AMARYL 1 MG 1 tab AMARYL 1 MG 283333 GLIMEPIRIDE Inactive TABS twice TABS daily METFORMIN 1 tablet METFORMIN 344882 METFORMIN HCL Inactive HCL 500 MG by mouth HCL 500 MG TABS twice TABS daily SPIRONOLACTO 1 tablet SPIRONOLACT 081217 SPIRONOLACTONE Inactive NE 25 MG TAB by mouth ONE 25 MG daily TAB POTASSIUM 2 capsule POTASSIUM POTASSIUM Inactive CHLORIDE CR by mouth CHLORIDE CR CHLORIDE 10 MEQ CPCR daily 10 MEQ CPCR LISINOPRIL 1 tablet LISINOPRIL 266997 LISINOPRIL Inactive 20 MG TABS by mouth 20 MG TABS daily DIFLUCAN 100 1 tablet DIFLUCAN 19760111 FLUCONAZOLE Inactive MG TABS by mouth 100 MG TABS every other day for 2 doses DIFLUCAN 100 1 tablet DIFLUCAN 289491 FLUCONAZOLE Inactive MG TAB by mouth 100 MG TAB daily x 3 days PREDNISONE 2 tablets PREDNISONE 571660 PREDNISONE Inactive 20 MG TAB today, 20 MG TAB then 1 tablet days 2-4 VYVANSE 20 1 tablet VYVANSE 20 LISDEXAMFETAMI Inactive MG ORAL CAPS daily for MG ORAL NE DIMESYLATE binge CAPS eating disorder TRAMADOL HCL 1/2 po TRAMADOL 315076 TRAMADOL HCL Inactive 50 MG TABS tid with HCL 50 MG ES TABS Tylenol prn pain JANUVIA 100 1 tablet JANUVIA 100 SITAGLIPTIN Inactive MG TABS by mouth MG TABS PHOSPHATE daily AMARYL 1 MG 1 tablet AMARYL 1 MG 770953 GLIMEPIRIDE Inactive ORAL TABS orally ORAL TABS twice daily METFORMIN 2 tablets METFORMIN METFORMIN HCL Inactive HCL 500 MG by mouth HCL 500 MG TB24 twice TB24 daily AMOXICILLIN 2 po BID AMOXICILLIN 907998 AMOXICILLIN Inactive 500 MG CAPS x 10 days 500 MG CAPS PREDNISONE 2 tabs PREDNISONE 609161 PREDNISONE Inactive 20 MG TAB daily for 20 MG TAB 3 days, 1 tab daily for 3 days, 1/2 tab daily for 2 days NITROFURANTO One NITROFURANT 6013708 NITROFURANTOIN Inactive IN MONOHYD capsule OIN MONOHYD MONOHYD MACRO MACRO 100 MG BID for MACRO 100 CAPS UTI MG CAPS PREDNISONE 2 pills PREDNISONE 356320 PREDNISONE Inactive 20 MG TAB daily x 4 20 MG TAB days AZITHROMYCIN 2 po qd x AZITHROMYCI 8442582 AZITHROMYCIN Inactive 250 MG TABS 1 day, [...] E&M - 3141-9 245 [lb_av] Weight Measured Diagnostic Results Date Name Value Unit Range Description Lab Report: Basic Metabolic Panel, HGBA1C - Chemistry sodium, serum 140 mmol/L 050-583 9941/06/03 potassium, serum 3.9 mmol/L 3.5-5.2 chloride, serum [...] Panel - Chemistry sodium, serum 136 mmol/L 462-493 2196/01/04 carbon dioxide, venous blood 27.0 mmol/L 21.0-32.0 potassium, serum 4.6 mmol/L 3.5-5.2 chloride, serum 98 mmol/L 98-107 blood glucose 174 mg/dL 65-110 urea nitrogen, blood 12 mg/dL 7-18 creatinine, serum 0.78 mg/dL 0.55-1.30 alanine aminotransferase (SGPT), serum 65 U/L 12-78 aspartate aminotransferase (SGOT), serum 34 U/L 15-37 calcium, serum 8.9 mg/dL 8.5-10.1 bilirubin, serum, total 0.40 mg/dL 0.00-1.00 cholesterol, serum 219 mg/dL 148-240 0837/01/04 triglyceride, serum, fasting 214 mg/dL 30-200 HDL cholesterol, serum 39 mg/dL 32-96 LDL cholesterol, serum 137 mg/dL 0-130 Lab Report: Lipid Panel - Chemistry cholesterol, serum 157 mg/dL 828-517 9771/08/22 triglyceride, serum, fasting 215 mg/dL 30-200 HDL cholesterol, serum 43 mg/dL 32-96 LDL cholesterol, serum 71 mg/dL 0-130 Office Visit: Diabetes Visit - Chemistry cholesterol, target level 200 mg/dL triglyceride, target level 200 mg/dL HDL cholesterol, serum, target level 35 mg/dL LDL target level 100 mg/dL home glucose monitor utilized Yes cholesterol, target level 200 mg/dL triglyceride, target level 200 mg/dL HDL cholesterol, serum, target level 35 mg/dL LDL target level 100 mg/dL Encounters Code Encounter Date Provider Facility CPT-34565 Level 4 New Patient Yury Benoit MD [facility] 15:17:12 CDT CPT-24052 Level 3 Est. [facility] [place] CPT-77709 Level 4 Est. Patient [facility] - 10:01:06 CDT [place] CPT-19123 Level 3 Est. Patient [facility] 08:58:07 CDT MEDICAL RECORDS ADMINISTRATOR CPT-38093 Level [address] Mar[address] [facility] 14:40:56 CDT TRACTOR TECHNICIAN CPT-07149 Level 4 Est. Patient [facility] 17:29:53 [employer] MEDICAL RECORDS ADMINISTRATOR CPT-57441 Level 4 Est. Patient Indigo Sexton [facility] 09:51:54 [employer]TERN[employer] CPT-38197 Level 3 Est. [facility] CPT-10604 Level 3 Est. Patient Joseph Pineda [facility] 14:42:12 CDT -[facility] CPT-58405 Level 3 Est. Patient [facility] 22:18:20 CDT -[facility]HC CPT-33531 Level 3 Est. Patient [facility] 16:46:04 CDT -RHC CPT-84258 Level 3 Est. Patient [facility] 15:39:53 CDT -RHC CPT-91334 Level 3 Est. Patient Maite Sanchez MD [facility] 13:33:34 CDT -RHC CPT-88200 Level 3 Est. Patient [facility] 11:37:08 CDT -RHC CPT-42966 Level 3 Est. Patient Joseph Edwin [facility] 17:13:29 [employer] -RHC CPT-55819 Level 3 Est. Patient [facility] 18:42:44 CDT CPT-78368 Level 3 Est. Patient [facility] 16:25:39 CDT CPT-80050 Level 3 Est. Patient Casey Brower [facility] 09:52:45 CDT -RHC CPT-96071 Level 3 Est. Patient Joseph Pineda [facility] 11:03:29 PATTERNMAKER [employer] -RHC CPT-42951 Level 3 Est. Patient Joseph Pineda [facility] 11:03:08 PATTERNMAKER PLAST[employer] -RHC CPT-87364 Level 3 Est. Patient Joseph Pineda [facility] 14:33:31 CDT -RHC CPT-02614 Level 3 Est. Patient Joseph Pineda [facility] 17:05:02 PATTERNMAKER [employer] -RHC CPT-84833 Level 3 Est. Patient Joseph Pineda [facility] 17:48:06 PATTERNMAKER PLAST[employer] -RHC CPT-78269 Level 3 Est. Patient Joseph Pineda [facility] 14:59:22 PATTERNMAKER PLASTICS -RHC CPT-13593 Level 3 Est. Patient Joseph Edwin [facility] - 21:45:56 PATTERNMAKER PLASTICS [place] [facility] CPT-37821 Level 3 Est. Patient Joseph Edwin [facility] 21:29:50 CDT -RHC CPT-24104 Level 3 Est. Patient [facility] 12:41:09 CDT -RHC Procedures Code Procedure Name Date Entry Date Standard Description CPT-27561 Urine Dip (Floor Use Only) 15:17:13 CDT CPT-26407 Dil F ureth int 15:17:13 CDT CPT-14597 Venipuncture Draw Fee 09:19:08 CDT CPT-39948 Lipid - LAB USE ONLY 09:19:07 CDT CPT-JTINJ Asp/Joint Injection 09:26:49 CDT CPT-41071 Chest 2V Frontal and Lat 14:47:43 CDT CPT-JTINJ Asp/Joint Injection 09:51:53 [employer] CPT-OV Office Visit 17:39:05 CDT CPT-OV Office Visit 15:19:50 CDT CPT-19311 Sono transvag pelvis non OB uterus ovaries cervix 18:04:34 CDT CPT-59892 Venipuncture Draw Fee 08:55:49 [employer]
--- OUTSIDE RECORDS SUMMARY | 2016-11-20 13:12 | External Medical Summary | Clinical Summary ---
:1965 Author Organization [facility] Address [address] [place] [address] Phone Allergies, Adverse Reactions, Alerts Allergy Name [...] Routine gynecological 12/14 12/14 [place] gynecological examination [employer] examination Postmenopausal 627.1 Active Jillina Postmenopausal bleeding 12/14 12/14 [place] bleeding [employer]IST ABNORMAL VAGINAL ICD-626.9 Inactive Maite Sanchez BLEEDING PhD SCABIES ICD-133.0 Inactive Maite Sanchez PhD OT GENERAL ICD-V70.3 Inactive Maite Sanchez MEDICAL PhD EXAMINATION ADMIN PURPOSES OTHER ABNORMAL ICD-790.29 Inactive Maite Sanchez GLUCOSE PhD ACUTE BRONCHITIS ICD-466.0 Inactive Maite Sanchez PhD Medication List Medication Instructions Start Stop Generic NDC Status Provider Patient Date Date Name Instruction TRAMADOL / po TRAMADOL [id number] No Jillina Active HCL 50 MG tid with HCL Longer [place] TABS ES Active [employer] MARKET[employer]IST Tylenol prn pain VYVANSE 20 1 tablet LISDEXAMF 69836076946 No Jillina Active MG ORAL daily for ETAMINE Longer [place] CAPS binge DIMESYLAT Active [employer] MARKET[employer] SPECIALIST eating E disorder METFORMIN 2 tablet METFORMIN 99237991313 Active Joseph W Active HCL 500 MG daily for HCL Farooq DO TB24 blood sugars LASIX 20 2 tablet FUROSEMID 64875625794 Active Joseph Pineda Active MG TAB by mouth E Farooq DO daily CELEBREX 1 tablet CELECOXIB 70101662668 Active Joseph W Active 200 MG by mouth Farooq DO CAPS daily with meals PREDNISONE 2 tablets PREDNISON 73097386883 No Joseph W Active 20 MG TAB today, E Longer Farooq DO then 1 Active tablet days 2-4 DIFLUCAN 1 tablet FLUCONAZO 20119820758 No Joseph W Active 100 MG TAB by mouth LE Longer Farooq DO daily x 3 Active days AMARYL 1 1 tablet GLIMEPIRI 04616031605 Active Joseph Pineda Active MG ORAL orally DE Farooq DO TABS twice daily DIFLUCAN 1 tablet FLUCONAZO 63057307251 No Joseph Pineda Active 100 MG by mouth LE Longer Farooq DO TABS every Active other day for 2 doses ZOFRAN 4 1 po q6hr ONDANSETR 50518300125 Active Bam Pineda Active MG TABS PRN ON HCL [place]illow Nausea PREDNISONE 2 tabs PREDNISON 02374559505 No Joseph Pineda Active 20 MG TAB daily for E Longer Farooq DO 3 days, 1 Active tab daily for 3 days, 1/2 tab daily for 2 days AMOXICILLI 2 po BID AMOXICILL 05474097083 No Maite C Active N 500 MG x 10 days IN Longer Madril CAPS Active PhD LISINOPRIL 1 tablet LISINOPRI 56905678428 No Maite C Active 20 MG TABS by mouth L Longer Madril daily Active PhD POTASSIUM 2 capsule POTASSIUM 02023568473 No Joseph Pineda Active CHLORIDE by mouth CHLORIDE Longer Farooq DO CR 10 MEQ daily Active CPCR SPIRONOLAC 1 tablet SPIRONOLA 70403577859 No Joseph W Active TONE 25 MG by mouth CTONE Longer Farooq DO TAB daily Active METFORMIN 1 tablet METFORMIN 73703517073 No Joseph W Active HCL 500 MG by mouth HCL Longer Farooq DO TABS twice Active daily AMARYL 1 1 tab GLIMEPIRI 80608012098 No Joseph W Active MG TABS twice DE Longer Farooq DO daily Active PHENTERMIN 1 po q am PHENTERMI 40500931106 No Joseph W Active E HCL 37.5 for wt. NE HCL Longer Farooq DO MG TABS loss Active PROMETHAZI 1 tab by PROMETHAZ 05223686908 No Joseph W Active NE HCL 25 mouth INE HCL Longer Farooq DO MG TABS every 6 Active hours as needed CIPROFLOXA Take one CIPROFLOX 16272382761 No Joseph W Active DELORES HCL (1) ACIN HCL Longer Farooq DO 500 MG tablet by Active TABS mouth twice a day ABILIFY 5 one p.o. ARIPIPRAZ 33916359256 No Joseph W Active MG TABS q. day OLE Longer Farooq DO Active HYDROCHLOR 2 tabs HYDROCHLO 16428508082 No Joseph W Active OTHIAZIDE every ROTHIAZID Longer Farooq DO 25 MG TABS morning E Active ABILIFY 2 1 po q hs ARIPIPRAZ 99250647086 No Joseph W Active MG TABS for major OLE Longer Farooq DO depressio Active n ADIPEX-P 1/2 tab PHENTERMI 11325462115 No Casey Active 37.5 MG po q am NE HCL Longer [place] CAPS for Active PA weight loss CIPRO 500 1 tablet CIPROFLOX 72267382926 No Casey Active MG TAB by mouth ACIN HCL Longer [place] twice Active PA daily NECON 1/35 1 po NORETHIND 56323818613 No Casey Active (28) 1-35 daily LINDA-ETH Longer Leonarda MG-MCG ESTRADIOL Active PA TABS TRAMADOL 1 po tid TRAMADOL 09732235168 No Casey Active HCL 50 MG with ES HCL Longer [place] TABS Tylenol Active PA FLUCONAZOL one p.o. FLUCONAZO 41710370002 No Casey Active E 100 MG q. day 2 LE Longer Leonarda TABS days Active PA POTASSIUM 1 capsule POTASSIUM 59283398626 No Casey Active CHLORIDE by mouth CHLORIDE Longer Leonarda CR 10 MEQ daily Active PA CPCR IMIPRAMINE Take 6 IMIPRAMIN 89047932935 Active Joseph Pineda Active HCL 50 MG tablets E HCL Farooq DO TABS by mouth at bedtime DIFLUCAN 1 tablet FLUCONAZO 50171115779 No Joseph W Active 100 MG TAB by mouth LE Longer Farooq DO daily Active METOPROLOL 1/2 tab METOPROLO 97776996217 Active Joseph W Active TARTRATE po bid L Farooq DO 25 MG TABS TARTRATE VERAPAMIL 2 po bid VERAPAMIL 41800454204 Active Joseph Pineda Active HCL CR 120 HCL Farooq DO MG TAB CR PERMETHRIN apply PERMETHRI 85088026066 No Joseph Pineda Active 5 % CREA neck to N Longer Farooq DO toes Active tonight and then rinse off in morning. repeat at 7 days SEROQUEL one p.o. QUETIAPIN 80764349136 No Joseph W Active XR 50 MG q. E Longer Farooq DO [id number] evening FUMARATE Active TRAMADOL 1-2 TRAMADOL 51775108017 No Joseph W Active HCL 50 MG tablets HCL Longer Farooq DO TABS every 6-8 Active hours as needed for pain ALPRAZOLAM one p.o. ALPRAZOLA 80412576010 Active Joseph W Active 3 MG q.h.s. M Farooq DO [id number] ALPRAZOLAM Take 1 ALPRAZOLA 08011551167 No Joseph W Active XR tablet by M Longer Farooq DO [id number] mouth at [id number] Active bedtime DIFLUCAN 1 tablet FLUCONAZO 94956769293 No Joseph W Active 100 MG TAB by mouth MAGNO Longer Farooq DO daily Active AMBIEN 10 1 tab by ZOLPIDEM 66706496925 Active Joseph W Active MG TAB mouth at TARTRATE Farooq DO bedtime as needed for sleep DIFLUCAN 100 1 tablet DIFLUCAN 215395 FLUCONAZOLE Inactive MG TAB by mouth 100 MG TAB daily ALPRAZOLAM Take 1 ALPRAZOLAM ALPRAZOLAM Inactive XR [id number] tablet by XR [id number] mouth at [id number] bedtime TRAMADOL HCL 1-2 TRAMADOL 558522 TRAMADOL HCL Inactive 50 MG TABS tablets HCL 50 MG every 6-8 TABS hours as needed for pain SEROQUEL XR one p.o. SEROQUEL XR QUETIAPINE Inactive 50 MG q. evening 50 MG FUMARATE [id number] PERMETHRIN 5 apply neck PERMETHRIN 861331 PERMETHRIN Inactive % CREA to toes 5 % CREA tonight and then rinse off in morning. repeat at 7 days DIFLUCAN 100 1 tablet DIFLUCAN 845483 FLUCONAZOLE Inactive MG TAB by mouth 100 MG TAB daily POTASSIUM 1 capsule POTASSIUM POTASSIUM Inactive CHLORIDE CR by mouth CHLORIDE CR CHLORIDE 10 MEQ CPCR daily 10 MEQ CPCR FLUCONAZOLE one p.o. FLUCONAZOLE 19760111 FLUCONAZOLE Inactive 100 MG TABS q. day 2 100 MG TABS days TRAMADOL HCL 1 po tid TRAMADOL 581562 TRAMADOL HCL Inactive 50 MG TABS with ES HCL 50 MG Tylenol TABS NECON 1/35 1 po daily NECON 1/35 NORETHINDRONE- Inactive (28) 1-35 (28) 1-35 ETH ESTRADIOL MG-MCG TABS MG-MCG TABS CIPRO 500 MG 1 tablet CIPRO 500 724438 CIPROFLOXACIN Inactive TAB by mouth MG TAB HCL twice daily ADIPEX-P 1/2 tab po ADIPEX-P 074805 PHENTERMINE Inactive 37.5 MG CAPS q am for 37.5 MG HCL weight CAPS loss ABILIFY 2 MG 1 po q hs ABILIFY 2 167429 ARIPIPRAZOLE Inactive TABS for major MG TABS depression HYDROCHLOROT 2 tabs HYDROCHLORO 241684 HYDROCHLOROTHI Inactive HIAZIDE 25 every THIAZIDE 25 AZIDE MG TABS morning MG TABS ABILIFY 5 MG one p.o. ABILIFY 5 841243 ARIPIPRAZOLE Inactive TABS q. day MG TABS CIPROFLOXACI Take one CIPROFLOXAC 556745 CIPROFLOXACIN Inactive N HCL 500 MG (1) tablet IN HCL 500 HCL TABS by mouth MG TABS twice a day PROMETHAZINE 1 tab by PROMETHAZIN 089721 PROMETHAZINE Inactive HCL 25 MG mouth E HCL 25 MG HCL TABS every 6 TABS hours as needed PHENTERMINE 1 po q am PHENTERMINE 764187 PHENTERMINE Inactive HCL 37.5 MG for wt. HCL 37.5 MG HCL TABS loss TABS AMARYL 1 MG 1 tab AMARYL 1 MG 359247 GLIMEPIRIDE Inactive TABS twice TABS daily METFORMIN 1 tablet METFORMIN 982882 METFORMIN HCL Inactive HCL 500 MG by mouth HCL 500 MG TABS twice TABS daily SPIRONOLACTO 1 tablet SPIRONOLACT 969139 SPIRONOLACTONE Inactive NE 25 MG TAB by mouth ONE 25 MG daily TAB POTASSIUM 2 capsule POTASSIUM POTASSIUM Inactive CHLORIDE CR by mouth CHLORIDE CR CHLORIDE 10 MEQ CPCR daily 10 MEQ CPCR LISINOPRIL 1 tablet LISINOPRIL 980012 LISINOPRIL Inactive 20 MG TABS by mouth 20 MG TABS daily DIFLUCAN 100 1 tablet DIFLUCAN 274603 FLUCONAZOLE Inactive MG TABS by mouth 100 MG TABS every other day for 2 doses DIFLUCAN 100 1 tablet DIFLUCAN 977727 FLUCONAZOLE Inactive MG TAB by mouth 100 MG TAB daily x 3 days PREDNISONE 2 tablets PREDNISONE 250254 PREDNISONE Inactive 20 MG TAB today, 20 MG TAB then 1 tablet days 2-4 VYVANSE 20 1 tablet VYVANSE 20 LISDEXAMFETAMI Inactive MG ORAL CAPS daily for MG ORAL NE DIMESYLATE binge CAPS eating disorder TRAMADOL HCL 1/2 po tid TRAMADOL 156216 TRAMADOL HCL Inactive 50 MG TABS with ES HCL 50 MG Tylenol TABS prn pain AMOXICILLIN 2 po BID x AMOXICILLIN 809243 AMOXICILLIN Inactive 500 MG CAPS 10 days 500 MG CAPS PREDNISONE 2 tabs PREDNISONE 214346 PREDNISONE Inactive 20 MG TAB daily for [...] Panel - Chemistry sodium, serum 137 mmol/L 452-041 7741/08/29 potassium, serum 4.1 mmol/L 3.5-5.2 chloride, serum 100 mmol/L 98-107 carbon dioxide, venous blood 31.1 mmol/L 21.0-32.0 blood glucose 138 mg/dL 65-110 calcium, serum 9.2 mg/dL 8.5-10.1 urea nitrogen, blood 9 mg/dL 7-18 creatinine, serum 0.80 mg/dL 0.60-1.30 Lab Report: CBC, Comp. Metabolic Panel, HGBA1C - Chemistry sodium, serum 140 mmol/L 112-022 7189/04/13 potassium, serum 3.9 mmol/L 3.5-5.2 chloride, serum [...] 4.3-6.0 Lab Report: CBC, Comp. Metabolic Panel, BA1C - Hematology leukocyte count, blood 7.0 10^3/MM^3 [...] count 219 10^3/MM^3 10*3/mm3 142-424 Lab Report: Chlamydia/GC APTIMA/30160 - Lab chlamydia DNA probe NOT DETECTED NOT DETECTED Lab Report: Chlamydia/GC APTIMA/71547 - Microbiology Neisseria gonorrhoeae DNA probe NOT DETECTED NOT DETECTED Lab Report: FSH AND LH/7137/Adult - Chemistry [...] (L), MICROALBUMIN, Basic Metabol ... - Chemistry albumin/creatinine ratio, urine < 30 mg/g mg/g{creat} 0-29 sodium, serum 140 mmol/L 983-311 9767/07/21 potassium, serum 3.9 mmol/L 3.5-5.2 chloride, serum 102 mmol/L 98-107 carbon dioxide, venous blood 33.4 mmol/L 21.0-32.0 blood glucose 156 mg/dL 65-110 calcium, serum 8.4 mg/dL 8.5-10.1 urea nitrogen, blood 14 mg/dL 7-18 creatinine, serum 1.00 mg/dL 0.60-1.30 TSH 2.24 m[iU]/mL 0.36-3.74 Lab Report: Thyroid Stimulating Hormone (L), MICROALBUMIN, [...] 142-424 Encounters Code Encounter Date Provider Facility CPT-10854 Level 3 Est. Patient Joseph Pineda [facility] 14:42:12 CDT -[facility] CPT-46424 Level 3 Est. Patient Joseph Pineda [facility] 22:18:20 CDT -[facility] CPT-09340 Level 3 Est. Patient Joseph Pineda [facility] 16:46:04 CD[facility] -[facility] CPT-86929 Level 3 Est. Patient Joseph Pineda [facility] 15:39:53 CD[facility] -[facility] CPT-85749 Level 3 Est. Patient Maite Sanchez MD [facility] 13:33:34 CDT -[facility] CPT-62292 Level 3 Est. Patient Joseph Pineda [facility] 11:37:08 CDT -[facility] CPT-25910 Level 3 Est. Patient Joseph Pineda [facility] 17:13:29 [facility] [facility] -[facility] CPT-35382 Level 3 Est. Patient Jsoeph Pineda [facility] 18:42:44 CDT CPT-71091 Level 3 Est. Patient Joseph Edwin [facility] 16:25:39 CDT CPT-28089 Level 3 Est. Patient Casey Brower [facility] 09:52:45 CDT -[facility] CPT-92816 Level 3 Est. Patient Joseph Edwin [facility] 11:03:29 [facility]ILDR[facility] CPT-08492 Level 3 Est. Patient Joseph Pineda [facility] 11:03:08 [facility]IL[facility] CPT-44654 Level 3 Est. Patient Joseph Pineda [facility] 14:33:31 CDT -[facility] CPT-33075 Level 3 Est. Patient Joseph Pineda [facility] 17:05:02 [facility]ILDR[facility]S [facility] -[facility] CPT-99277 Level 3 Est. Patient Joseph Edwin [facility] 17:48:06 [facility]ILDR[facility]S [facility] -[facility] CPT-57717 Level 3 Est. Patient Joseph Pineda [facility] 14:59:22 [facility]ILDR[facility]'S COUNSEL[facility] -[facility] CPT-64694 Level 3 Est. Patient Joseph Edwin [facility] - 21:45:56 [facility]ILDREN'S [facility] [place] [facility] CPT-36304 Level 3 Est. Patient Joseph Pineda [facility] 21:29:50 [facility] CPT-07736 Level 3 Est. Patient Joseph Pineda [facility] 12:41:09 [facility] Procedures Code Procedure Name Date Entry Date Standard Description CPT-90501 Sono transvag pelvis non OB uterus ovaries cervix 18:04:34 T CPT-03196 Venipuncture Draw Fee 08:55:49 [facility]IL[employer]
--- OUTSIDE RECORDS SUMMARY | 2016-11-20 13:12 | External Medical Summary | Clinical Summary ---
:1965 Author Organization [facility] [employer] Address [address] [address] Phone Allergies, Adverse Reactions, Alerts Allergy Name Reaction Description Start Date Severity Status Provider VERSED States jsut about Critical Active Gloria Saavedra HELP DESK ADMINISTRATOR killed her NKDA Critical Active Indigo Yokum DIGITAL IMAGER NKDA Critical No Longer Indigo Yokum DIGITAL IMAGER Active NKDA Critical Inactive Adrianna Elder Conditions [...] 311 Active Indigo Depressive chronic 09/20 [facility] DIGITAL IMAGER disorder, not elsewhere classified SCABIES 133.0 Resolved Maite Gutierrez Scabies 06/23 Laura ONEAL PhD HYPERTENSION 401.9 Active Joseph Pineda Unspecified 05/24 Farooq DO essential hypertension FATIGUE 780.79 Resolved Indigo Other malaise 05/24 07/02 [facility] DIGITAL IMAGER and fatigue SLEEP APNEA, 327.23 Active Joseph Pineda Obstructive OBSTRUCTIVE, 06/27 06/27 Farooq DO sleep apnea MILD (adult) (pediatric) OVERWEIGHT 278.02 Inactive Joseph Pineda Overweight 06/28 06/28 Farooq DO Obesity 278.00 Active Indigo Obesity, 06/28 10/18 [facility] DIGITAL IMAGER unspecified OT GENERAL V70.3 Resolved Maite C Other general MEDICAL Laura ONEAL medical EXAMINATION PhD examination for ADMIN administrative PURPOSES purposes OTHER 790.29 Resolved Maite C Other abnormal ABNORMAL 05/20 Laura ONEAL glucose GLUCOSE PhD ACUTE 466.0 Resolved Maite Gutierrez Acute bronchitis BRONCHITIS 09/02 Laura ONEAL PhD DEPENDENT 782.3 Resolved Indigo Edema EDEMA, LEGS, 10/29 10/18 [facility] DIGITAL IMAGER BILATERAL HYPOKALEMIA, 276.8 Resolved Indigo Hypopotassemia MILD 10/29 07/02 Yo DIGITAL IMAGER Diabetes, 250.00 Inactive Joseph Pineda Diabetes Type 2 06/27 06/27 Farooq DO mellitus without mention of complication, type II or unspecified type, not stated as uncontrolled Diabetes 250.02 Resolved Indigo Diabetes mellitus, 06/27 10/18 [facility] DIGITAL IMAGER mellitus without type II, mention of uncontrolled complication, type II or unspecified type, uncontrolled Health V70.0 Active Joseph Pineda Routine general screening 01/17 01/17 Faroqo DO medical examination at a health care facility Sinusitis, 461.1 Resolved Ismael Coyne Acute frontal frontal, 12/26 [place] sinusitis acute Laryngitis, 464.00 Resolved Ismael Coyne Acute laryngitis acute 12/26 [place] without mention MD of obstruction Binge eating 307.51 Active Joseph Pineda Bulimia nervosa disorder 08/15 08/15 Farooq DO Routine V72.31 Resolved Indigo Routine gynecological 12/14 07/02 Yo DIGITAL IMAGER gynecological examination examination Postmenopausa 627.1 Resolved Indigo Postmenopausal l bleeding 12/14 07/02 [facility] DIGITAL IMAGER bleeding Screening for V76.51 Resolved Indigo Screening for malignant 12/26 07/02 [facility] DIGITAL IMAGER malignant neoplasms of neoplasms of colon colon Insomnia, 307.42 Active 2015/0 Indigo 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 DIGITAL IMAGER disorder of initiating or maintaining sleep Establish V68.89 Resolved Indigo Encounters for care or get 01/16 07/02 [facility] DIGITAL IMAGER other specified acquainted administrative visit purpose Weakness, 342.90 Resolved Indigo Hemiplegia, left side of 06/20 10/18 [facility] DIGITAL IMAGER unspecified, body affecting unspecified side TIA 435.9 Active Indigo Unspecified 06/20 07/02 [facility] DIGITAL IMAGER transient cerebral ischemia Knee pain, 719.46 Active Indigo Pain in joint bilateral 06/20 10/18 [facility] DIGITAL IMAGER involving lower leg Bronchitis 490 Resolved Indigo Bronchitis, not 07/23 10/18 [facility] DIGITAL IMAGER specified as acute or chronic Diabetes 357.2 Active Maliheh Polyneuropathy mellitus, 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 y Knee pain, 719.46 Resolved Indigo Pain in joint right 06/20 09/20 [facility] DIGITAL IMAGER involving lower leg Jesi 112.3 Resolved Indigo Candidiasis of intertrigo 10/09 09/20 [facility] DIGITAL IMAGER skin and nails Hyperlipidemi 272.4 Active Anne Other and a 12/24 12/24 Neil unspecified RMA hyperlipidemia Incontinence, 788.33 Resolved Indigo Mixed mixed, 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 DIGITAL IMAGER incontinence urge/stress (female) (male) Female stress 625.6 Active Yury Monaco Stress incontinence 01/03 01/03 Cy patel MD female Vaginal odor 623.8 Resolved Indigo Other specified 05/28 09/20 [facility] DIGITAL IMAGER noninflammatory disorders of vagina Urinary tract 599.0 Resolved Indigo Urinary tract infection 05/28 09/20 [facility] DIGITAL IMAGER infection, site not specified Urine odor 791.9 Resolved Indigo Other 05/28 09/20 [facility] DIGITAL IMAGER nonspecific findings on examination of urine Unspecified Resolved Indigo dyspareunia 08/19 09/20 [facility] DIGITAL IMAGER Depression Resolved Indigo 09/20 [facility] DIGITAL IMAGER Anxiety Active Indigo Anxiety state, Disorder 08/26 DIGITAL IMAGER unspecified ABNORMAL VAGINAL ICD-626.9 Inactive Maite C Laura BLEEDING PhD SCABIES ICD-133.0 Inactive Maite C Laura PhD FATIGUE ICD-780.79 Inactive Indigo Y[facility]um DIGITAL IMAGER OTH GENERAL ICD-V70.3 Inactive Maite C Laura MEDICAL MD PhD EXAMINATION ADMIN PURPOSES OTHER ABNORMAL ICD-790.29 Inactive Maite C Ronyril GLUCOSE PhD ACUTE BRONCHITIS ICD-466.0 Inactive Maite C Laura PhD DEPENDENT EDEMA, ICD-782.3 Inactive Indigo [facility] LEGS, BILATERAL DIGITAL IMAGER HYPOKALEMIA, MILD ICD-276.8 Inactive Idnigo Yokum DIGITAL IMAGER Diabetes mellitus, ICD-250.02 Inactive Indigo Yokum type II, DIGITAL IMAGER uncontrolled Sinusitis, ICD-461.1 Inactive Ismael Coyne frontal, acute Amandeep ONEAL Laryngitis, acute ICD-464.00 Inactive Ismael Coyne Amandeep ONEAL Routine ICD-V72.31 Inactive Indigo [facility]um gynecological DIGITAL IMAGER examination Postmenopausal ICD-627.1 Inactive Indigo Yokum 2015 bleeding DIGITAL IMAGER Screening for ICD-V76.51 Inactive Indigo Yokum 2015 malignant DIGITAL IMAGER neoplasms of colon Establish care or ICD-V68.89 Inactive Indigo Yokum get acquainted DIGITAL IMAGER visit Weakness, left ICD-342.90 Inactive Indigo [facility] side of body DIGITAL IMAGER Bronchitis ICD-490 Inactive Indigo [facility] DIGITAL IMAGER Knee pain, right ICD-719.46 Inactive Indigo [facility] DIGITAL IMAGER Jesi intertrigo ICD-112.3 Inactive Indigo [facility] DIGITAL IMAGER Incontinence, ICD-788.33 Inactive Indigo Yokum 2016 mixed, urge/stress DIGITAL IMAGER Vaginal odor ICD-623.8 Inactive Indigo Yokum 09/20 DIGITAL IMAGER Urinary tract ICD-599.0 Inactive Indigo Yokum 09/20 infection DIGITAL IMAGER Urine odor ICD-791.9 Inactive Indigo Y[facility] DIGITAL IMAGER Unspecified Inactive Indigo Y[facility]um dyspareunia DIGITAL IMAGER Depression Inactive Indigo [facility] DIGITAL IMAGER Medication List Medication Instructions Start Stop Generic NDC Status Provider Patient Date Date Name Instruction ALPRAZOLAM 3 one p.o. ALPRAZOLAM 32003491138 Active Indigo Active MG [id number] q.h.s. [facility] DIGITAL IMAGER ABILIFY 10 MG Take one ARIPIPRAZOLE 74386388592 Active Indigo Active ORAL TABS tablet [facility] daily for DIGITAL IMAGER depression CELEBREX 200 1 tablet 2 CELECOXIB 84625658954 No Indigo Active MG CAPS by mouth 0 Longer Yokum daily with 1 Active DIGITAL IMAGER meals 7 / 0 4 / 2 4 TROKENDI XR 1 tab by 2 TOPIRAMATE 08499764301 No Indigo Active 100 MG ORAL mouth 0 Longer Yokum [id number] daily 1 Active DIGITAL IMAGER 7 0 4 VESICARE 10 MG 1 pill by SOLIFENACIN 39023357771 Active J Carlos Enrique Active TABS mouth SUCCINATE Benoit daily for MD overactive bladder CIPRO 250 MG 1 tablet 2 CIPROFLOXACIN 67408972011 No Indigo Active TAB by mouth 0 HCL Longer [facility] twice 1 Active DIGITAL IMAGER daily 7 METFORMIN HCL 2 tablets 2 METFORMIN HCL 82372989143 No Indigo Active 500 MG TB24 by mouth 0 Longer [facility] twice 1 Active DIGITAL IMAGER daily 2 AMARYL 1 MG 1 tablet 2 GLIMEPIRIDE 75923353714 No Indigo Active ORAL TABS orally 0 Longer Yokum twice 1 Active DIGITAL IMAGER daily 2 NYSTATIN apply to NYSTATIN 49691896249 Active Indigo Active 730318 UNIT/GM rash TID [facility] CREA PRN DIGITAL IMAGER METOPROLOL 1 tab po METOPROLOL 30437879461 Active Indigo Active TARTRATE 25 MG bid TARTRATE [facility] TABS DIGITAL IMAGER AZITHROMYCIN 2 po qd x 2 AZITHROMYCIN 30560143409 No Jillina Active 250 MG TABS 1 day, 0 Longer Frazell then 1 po 1 Active DIGITAL IMAGER qd x 4 6 days / 0 3 / 2 6 PREDNISONE 20 2 pills 2 PREDNISONE 90422475961 No Jillina Active MG TAB daily x 4 0 Longer Frazell days 1 Active DIGITAL IMAGER 6 / 0 3 / 2 5 PIOGLITAZONE take one a PIOGLITAZONE 47878195122 Active Maliheh Active HCL 30 MG ORAL day HCL Ziglari TABS CLAY MIXER JANUVIA 100 MG 1 tablet 2 SITAGLIPTIN 14243770638 No Indigo Active TABS by mouth 0 PHOSPHATE Longer Yokum daily 1 Active DIGITAL IMAGER 6 / 0 2 / 1 6 ATORVASTATIN 1 pill by ATORVASTATIN 55745479316 Active Hannah Active CALCIUM 10 MG mouth CALCIUM Neal TABS nightly, DIGITAL IMAGER for cholestero l ASPIRIN 81 MG 1 po qd ASPIRIN 90490619032 Active Indigo Active ORAL TABS [facility] DIGITAL IMAGER NITROFURANTOIN One 2 NITROFURANTOIN 58183596059 No Indigo Active MONOHYD MACRO capsule 0 MONOHYD MACRO Longer Yokum 100 MG CAPS BID for 1 Active DIGITAL IMAGER UTI 6 / 0 2 / 1 3 TRAMADOL HCL 1/2 po tid 2 TRAMADOL HCL 13732783768 No Jillina Active 50 MG TABS with ES 0 Longer Frazell Tylenol 1 Active DIGITAL IMAGER prn pain 5 / 0 2 VYVANSE 20 MG 1 tablet 2 LISDEXAMFETAMI 11948963868 No Jillina Active ORAL CAPS daily for 0 NE DIMESYLATE Longer Frazell binge 1 Active DIGITAL IMAGER eating 5 disorder / 0 2 LASIX 20 MG 2 tablet FUROSEMIDE 50014317838 Active Ranulfo Villalpando Active TAB by mouth Murphy daily PREDNISONE 20 2 tablets 2 PREDNISONE 45801367694 No Joseph W Active MG TAB today, 0 Longer Farooq DO then 1 1 Active tablet 5 days 2-4 / 0 3 DIFLUCAN 100 1 tablet 2 FLUCONAZOLE 50808942611 No Joseph W Active MG TAB by mouth 0 Longer Farooq DO daily x 3 1 Active days 5 / 0 1 3 DIFLUCAN 100 1 tablet 2 FLUCONAZOLE 61718907281 No Joseph W Active MG TABS by mouth 0 Longer Farooq DO every 1 Active other day 5 for 2 / doses 0 1 / 2 3 ZOFRAN 4 MG 1 po q6hr ONDANSETRON 02008856654 Active Joseph W Active TABS PRN Nausea HCL Farooq DO PREDNISONE 20 2 tabs 2 PREDNISONE 55770468974 No Joseph W Active MG TAB daily for 0 Longer Farooq DO 3 days, 1 1 Active tab daily 4 for 3 / days, 1/2 1 tab daily 0 for 2 days / 2 5 AMOXICILLIN 2 po BID x 2 AMOXICILLIN 27704240575 No Maite C Active 500 MG CAPS 10 days 0 Longer Madril 1 Active PhD 4 / 1 0 / 2 0 LISINOPRIL 20 1 tablet 2 LISINOPRIL 89327739656 No Maite C Active MG TABS by mouth 0 Longer Madril daily 1 Active PhD 4 / 0 / 1 0 POTASSIUM 2 capsule 2 POTASSIUM 47015740031 No Joseph W Active CHLORIDE CR 10 by mouth 0 CHLORIDE Longer Farooq DO MEQ CPCR daily 1 Active 4 / 0 8 / 2 9 SPIRONOLACTONE 1 tablet 2 SPIRONOLACTONE 17139263016 No Joseph W Active 25 MG TAB by mouth 0 Longer Farooq DO daily 1 Active 4 / 0 8 / 2 9 METFORMIN HCL 1 tablet 2 METFORMIN HCL 86322977163 No Joseph W Active 500 MG TABS by mouth 0 Longer Farooq DO twice 1 Active daily 4 / 0 8 / 2 9 AMARYL 1 MG 1 tab 2 GLIMEPIRIDE 42448110929 No Joseph W Active TABS twice 0 Longer Farooq DO daily 1 Active 4 / 0 8 / 2 9 PHENTERMINE 1 po q am 2 PHENTERMINE 39201187827 No Joseph W Active HCL 37.5 MG for wt. 0 HCL Longer Farooq DO TABS loss 1 Active 3 / 1 2 / 2 3 PROMETHAZINE 1 tab by 2 PROMETHAZINE 40190898242 No Joseph W Active HCL 25 MG TABS mouth 0 HCL Longer Farooq DO every 6 1 Active hours as 3 needed / 0 9 / 0 9 CIPROFLOXACIN Take one 2 CIPROFLOXACIN 04414710749 No Joseph W Active HCL 500 MG (1) tablet 0 HCL Longer Farooq DO TABS by mouth 1 Active twice a 3 day / 0 9 / 0 9 ABILIFY 5 MG one p.o. 2 ARIPIPRAZOLE 90967130247 No Joseph W Active TABS q. day 0 Longer Farooq DO 1 Active 3 / 0 9 / 0 9 HYDROCHLOROTHI 2 tabs 2 HYDROCHLOROTHI 77261835313 No Joseph W Active AZIDE 25 MG every 0 AZIDE Longer Farooq DO TABS morning 1 Active 3 / 0 6 / 2 7 ABILIFY 2 MG 1 po q hs 2 ARIPIPRAZOLE 56253931821 No Joseph W Active TABS for major 0 Longer Farooq DO depression 1 Active 3 / 0 5 / 0 7 ADIPEX-P 37.5 1/2 tab po 2 PHENTERMINE 75410105850 No Casey Active MG CAPS q am for 0 HCL Longer weight 1 Active PA loss 3 / 0 5 / 0 1 CIPRO 500 MG 1 tablet 2 CIPROFLOXACIN 47258406711 No Casey Active TAB by mouth 0 HCL Longer Leonarda twice 1 Active PA daily 3 / 0 5 / 0 1 NECON 1 po daily 2 NORETHINDRONE- 70424889657 No Casey Active () 1-35 0 ETH ESTRADIOL Longer MG-MCG TABS 1 Active PA 3 / 0 5 / 0 1 TRAMADOL HCL 1 po tid 2 TRAMADOL HCL 80660580705 No Casey Active 50 MG TABS with ES 0 Longer Tylenol 1 Active PA 3 / 0 5 / 0 1 FLUCONAZOLE one p.o. 2 FLUCONAZOLE 40293396528 No Casey Active 100 MG TABS q. day 2 0 Longer days 1 Active PA 3 / 0 5 / 0 1 POTASSIUM 1 capsule 2 POTASSIUM 24983660085 No Casey Active CHLORIDE CR 10 by mouth 0 CHLORIDE Longer MEQ CPCR daily 1 Active PA 3 / 0 5 / 0 1 IMIPRAMINE HCL Take 6 IMIPRAMINE HCL 65284281224 Active Indigo Active 50 MG TABS tablets by [facility] mouth at DIGITAL IMAGER bedtime DIFLUCAN 100 1 tablet 2 FLUCONAZOLE 19634706917 No Joseph W Active MG TAB by mouth 0 Longer Farooq DO daily 1 Active 2 / 0 2 / 2 4 VERAPAMIL HCL 2 po bid VERAPAMIL HCL 79947349809 Active Indigo Active CR 120 MG TAB [facility] CR DIGITAL IMAGER PERMETHRIN 5 % apply neck 2 PERMETHRIN 38478675967 No Joseph W Active CREA to toes 0 Longer Farooq DO tonight 1 Active and then 2 rinse off / in 0 morning. 1 repeat at / 7 days 2 0 SEROQUEL XR 50 one p.o. 2 QUETIAPINE 68369384746 No Joseph W Active MG [id number] q. evening 0 FUMARATE Longer Farooq DO 1 Active 2 / 0 1 / 2 0 TRAMADOL HCL 1-2 2 TRAMADOL HCL 19998872314 No Joseph W Active 50 MG TABS tablets 0 Longer Farooq DO every 6-8 1 Active hours as 2 needed for / pain 0 1 / 2 0 ALPRAZOLAM XR Take 1 2 ALPRAZOLAM 00156580076 No Joseph W Active [id number] tablet by 0 [id number] Longer Farooq DO mouth at 1 Active bedtime 1 / 2 9 DIFLUCAN 100 1 tablet 2 FLUCONAZOLE 79416974877 No Joseph W Active MG TAB by mouth 0 Longer Farooq DO daily 1 Active 0 / 0 6 AMBIEN 10 MG 1 tab by ZOLPIDEM 38850447064 Active Indigo Active TAB mouth at TARTRATE [facility] bedtime as DIGITAL IMAGER needed for sleep DIFLUCAN 100 1 tablet DIFLUCAN 063717 FLUCONAZOLE Inactive MG TAB by mouth 100 MG TAB daily ALPRAZOLAM Take 1 ALPRAZOLAM ALPRAZOLAM Inactive XR [id number] tablet by XR [id number] mouth at [id number] bedtime TRAMADOL HCL 1-2 TRAMADOL 421817 TRAMADOL HCL Inactive 50 MG TABS tablets HCL 50 MG every 6-8 TABS hours as needed for pain SEROQUEL XR one p.o. SEROQUEL XR QUETIAPINE Inactive 50 MG q. 50 MG FUMARATE [id number] evening [id number] PERMETHRIN 5 apply PERMETHRIN 596285 PERMETHRIN Inactive % CREA neck to 5 [...] days TRAMADOL HCL 1 po tid TRAMADOL 019783 TRAMADOL HCL Inactive 50 MG TABS with ES HCL 50 MG Tylenol TABS NECON 35 1 po NECON NORETHINDRONE- Inactive (28) 1-35 daily (28) 1-35 ETH ESTRADIOL MG-MCG TABS MG-MCG TABS CIPRO 500 MG 1 tablet CIPRO 500 594025 CIPROFLOXACIN Inactive TAB by mouth MG TAB HCL twice daily ADIPEX-P 1/2 tab ADIPEX-P 319064 PHENTERMINE Inactive 37.5 MG CAPS po q am 37.5 MG HCL for CAPS weight loss ABILIFY 2 MG 1 po q hs ABILIFY 2 888190 ARIPIPRAZOLE Inactive TABS for major MG TABS depressio n HYDROCHLOROT 2 tabs HYDROCHLORO 940339 HYDROCHLOROTHI Inactive HIAZIDE 25 every THIAZIDE 25 AZIDE MG TABS morning MG TABS ABILIFY 5 MG one p.o. ABILIFY 5 371018 ARIPIPRAZOLE Inactive TABS q. day MG TABS CIPROFLOXACI Take one CIPROFLOXAC 820609 CIPROFLOXACIN Inactive N HCL 500 MG (1) IN HCL 500 HCL TABS tablet by MG TABS mouth twice a day PROMETHAZINE 1 tab by PROMETHAZIN 767427 PROMETHAZINE Inactive HCL 25 MG mouth E HCL 25 MG HCL TABS every 6 TABS hours as needed PHENTERMINE 1 po q am PHENTERMINE 328279 PHENTERMINE Inactive HCL 37.5 MG for wt. HCL 37.5 MG HCL TABS loss TABS AMARYL 1 MG 1 tab AMARYL 1 MG 414208 GLIMEPIRIDE Inactive TABS twice TABS daily METFORMIN 1 tablet METFORMIN 531913 METFORMIN HCL Inactive HCL 500 MG by mouth HCL 500 MG TABS twice TABS daily SPIRONOLACTO 1 tablet SPIRONOLACT 202373 SPIRONOLACTONE Inactive NE 25 MG TAB by mouth ONE 25 MG daily TAB POTASSIUM 2 capsule POTASSIUM POTASSIUM Inactive CHLORIDE CR by mouth CHLORIDE CR CHLORIDE 10 MEQ CPCR daily 10 MEQ CPCR LISINOPRIL 1 tablet LISINOPRIL 183025 LISINOPRIL Inactive 20 MG TABS by mouth 20 MG TABS daily DIFLUCAN 100 1 tablet DIFLUCAN 768232 FLUCONAZOLE Inactive MG TABS by mouth 100 MG TABS every other day for 2 doses DIFLUCAN 100 1 tablet DIFLUCAN 654889 FLUCONAZOLE Inactive MG TAB by mouth 100 MG TAB daily x 3 days PREDNISONE 2 tablets PREDNISONE 149193 PREDNISONE Inactive 20 MG TAB today, 20 MG TAB then 1 tablet days 2-4 VYVANSE 20 1 tablet VYVANSE 20 LISDEXAMFETAMI Inactive MG ORAL CAPS daily for MG ORAL NE DIMESYLATE binge CAPS eating disorder TRAMADOL HCL 1/2 po TRAMADOL 386282 TRAMADOL HCL Inactive 50 MG TABS tid with HCL 50 MG ES TABS Tylenol prn pain JANUVIA 100 1 tablet JANUVIA 100 SITAGLIPTIN Inactive MG TABS by mouth MG TABS PHOSPHATE daily AMARYL 1 MG 1 tablet AMARYL 1 MG 424602 GLIMEPIRIDE Inactive ORAL TABS orally ORAL TABS twice daily METFORMIN 2 tablets METFORMIN METFORMIN HCL Inactive HCL 500 MG by mouth HCL 500 MG TB24 twice TB24 daily TROKENDI XR 1 tab by TROKENDI XR TOPIRAMATE Inactive 100 MG ORAL mouth 100 MG ORAL RR25I-TGT daily [id number] CELEBREX 200 1 tablet CELEBREX 066449 CELECOXIB Inactive MG CAPS by mouth 200 MG CAPS daily with meals AMOXICILLIN 2 po BID AMOXICILLIN 317347 AMOXICILLIN Inactive 500 MG CAPS x 10 days 500 MG CAPS PREDNISONE 2 tabs PREDNISONE 763790 PREDNISONE Inactive 20 MG TAB daily for 20 MG TAB 3 days, 1 tab daily for 3 days, 1/2 tab daily for 2 days NITROFURANTO One NITROFURANT 5560775 NITROFURANTOIN Inactive IN MONOHYD capsule OIN MONOHYD MONOHYD MACRO MACRO 100 MG BID for MACRO 100 CAPS UTI MG CAPS PREDNISONE 2 pills PREDNISONE 465501 PREDNISONE Inactive 20 MG TAB daily x 4 20 MG TAB days AZITHROMYCIN 2 po qd x AZITHROMYCI 3697545 AZITHROMYCIN Inactive 250 MG TABS 1 day, N 250 MG then 1 po TABS qd x 4 days CIPRO 250 MG 1 tablet CIPRO 250 506170 CIPROFLOXACIN Inactive TAB by mouth MG TAB [...] HGBA1C - Chemistry sodium, serum 140 mmol/L 290-404 0794/06/03 potassium, serum 3.9 mmol/L 3.5-5.2 chloride, serum 105 mmol/L 98-107 carbon dioxide, venous blood 29.4 mmol/L 21.0-32.0 blood glucose 124 mg/dL 65-110 calcium, serum 8.9 mg/dL 8.5-10.1 urea nitrogen, blood 14 mg/dL 7-18 creatinine, serum 0.88 mg/dL 0.55-1.30 hemoglobin A1C, blood, as % of total hemoglobin 5.7 % 4.3-6.0 Lab Report: Chlamydia/GC APTIMA/33038 - Lab chlamydia DNA probe NOT DETECTED NOT DETECTED Lab Report: Chlamydia/GC APTIMA/03151 - Microbiology Neisseria gonorrhoeae DNA probe NOT DETECTED NOT DETECTED Lab Report: Lipid Panel - Chemistry cholesterol, serum 157 mg/dL 466-129 3454/08/22 triglyceride, serum, fasting 215 mg/dL 30-200 HDL cholesterol, serum 43 mg/dL 32-96 LDL cholesterol, serum 71 mg/dL 0-130 Lab Report: UA DIP/MANUAL - Chemistry RBC, urine, dipstick Negative Negative protein, total urine random Trace mg/dL Negative Lab Report: UA DIP/MANUAL - Urinalysis pH, urine, semiquantitative 6.0 5.0-8.5 specific gravity, urine 1.020 1.000-1.030 urobilinogen, urine, semiquantitative (dipstick) 1.0 Normal leukocyte esterase, urine, by dipstick Trace Negative nitrite, urine, semiquantitative positive Negative ketones, urine, by test strip Negative Negative glucose, urine, semiquantitative Negative Negative bilirubin, urine 1+ Negative Office Visit: -incontinence - Chemistry RBC, urine, [...] mg/dL Encounters Code Encounter Date Provider Facility CPT-81932 Level 4 Est. Patient Indigo Carlie [facility] - 16:58:20 CDT [place] CPT-18494 Level 3 Est. [facility] 17:20:07 CDT CPT-53795 Level 4 Est. Patient Indigo Carlie DIGITAL IMAGER [facility] - 17:02:40 FAST FOOD CASHIER [place] CPT-43808 Level 4 New Patient [facility] 15:17:12 CDT CPT-19740 Level 3 Est. Patient [facility] 13:37:46 CDT [place] CPT-22816 Level 4 Est. Patient [facility] 10:01:06 CDT [place] CPT-31385 Level 3 Est. Patient [facility] 08:58:07 CDT CLAY MIXER CPT-12478 Level 3 Est. Patient Faby [facility] 14:40:56 CDT DIGITAL IMAGER CPT-78815 Level 4 Est. Patient [facility] 17:29:53 FAST FOOD CASHIER CLAY MIXER CPT-32083 Level 4 Est. Patient [facility] 09:51:54 FAST FOOD CASHIER CPT-01361 Level 3 Est. Patient [facility] 18:59:38 CDT CPT-98914 Level 3 Est. Patient Joseph Pineda [facility] 14:42:12 CDT -[facility] CPT-67189 Level 3 Est. Patient Joseph Pineda [facility] 22:18:20 CDT -[facility] CPT-89129 Level 3 Est. Patient Joseph Pineda [facility] 16:46:04 CDT -[facility] CPT-17024 Level 3 Est. Patient Joseph Pineda [facility] 15:39:53 CDT -[facility]HC CPT-92573 Level 3 Est. Patient Maite Sanchez [facility] 13:33:34 CDT -[facility] CPT-03699 Level 3 Est. Patient Joseph Pineda [facility] 11:37:08 CDT -RHC CPT-80407 Level 3 Est. Patient Joseph Pineda [facility] 17:13:29 FAST FOOD CASHIER -RHC CPT-55961 Level 3 Est. Patient Joseph Trivedi [facility] 18:42:44 CDT CPT-98024 Level 3 Est. Patient Joseph Trivedi [facility] 16:25:39 CDT CPT-32547 Level 3 Est. Patient Casey Brower [facility] 09:52:45 CDT -RHC CPT-80794 Level 3 Est. Patient Joseph Trivedi [facility] 11:03:29 FAST FOOD CASHIER -RHC CPT-01553 Level 3 Est. Patient Joseph Pineda [facility] 11:03:08 FAST FOOD CASHIER -RHC CPT-86839 Level 3 Est. Patient Joseph Pineda [facility] 14:33:31 CDT -RHC CPT-90493 Level 3 Est. Patient Joseph Pineda [facility] 17:05:02 FAST FOOD CASHIER -RHC CPT-04478 Level 3 Est. Patient Joseph Pineda [facility] 17:48:06 FAST FOOD CASHIER -RHC CPT-16798 Level 3 Est. Patient Joseph Pineda [facility] 14:59:22 FAST FOOD CASHIER -RHC CPT-57909 Level 3 Est. Patient Joseph Pineda [facility] - 21:45:56 FAST FOOD CASHIER [place] [facility] CPT-24059 Level 3 Est. Patient Joseph Pineda [facility] 21:29:50 CDT -RHC CPT-98161 Level 3 Est. Patient Joseph Pineda [facility] 12:41:09 CDT -RHC Procedures Code Procedure Name Date Entry Date Standard Description CPT-15747 Wet Mount - LAB USE ONLY 12:39:03 FAST FOOD CASHIER CPT-12249 Vaginal Culture - LAB USE ONLY 12:39:03 FAST FOOD CASHIER CPT-96461 Urine Culture - LAB USE ONLY 11:52:44 FAST FOOD CASHIER CPT-38379 UA w micro - LAB USE ONLY 11:52:44 FAST FOOD CASHIER CPT-43018 Postop F/U Visit 12:08:35 CDT CPT-12271 Postop F/U Visit 18:20:10 CDT CPT-A4351 [facility] Female Cath 09:37:10 CDT CPT-70194 Urine Dip (Floor Use Only) 15:17:13 CDT CPT-94119 Dil F ureth int 15:17:13 CDT CPT-11588 Venipuncture Draw Fee 09:19:08 CDT CPT-19354 Lipid - LAB USE ONLY 09:19:07 CDT CPT-JTINJ Asp/Joint Injection 09:26:49 CDT CPT-69162 Chest 2V Frontal and Lat 14:47:43 CDT CPT-JTINJ Asp/Joint Injection 09:51:53 FAST FOOD CASHIER CPT-OV Office Visit 17:39:05 CDT CPT-OV Office Visit 15:19:50 CDT CPT-09255 Sono transvag pelvis non OB uterus ovaries cervix 18:04:34 CDT CPT-75664 Venipuncture Draw Fee 08:55:49 FAST FOOD CASHIER
--- OUTSIDE RECORDS SUMMARY | 2016-11-20 13:13 | External Medical Summary | Clinical Summary ---
:1965 Author Organization [facility] Address [address] [address] Phone Allergies, Adverse Reactions, Alerts Allergy Name Reaction Description Start Date Severity Status Provider VERSED States jsut about Critical Active Gloria Saavedra DOCUMENTATION SPECIALIST killed her NKDA Critical Active Indigo Yokum HOUSEPERSON NKDA Critical No Longer Indigo Yokum HOUSEPERSON Active NKDA Critical Inactive Adrianna Elder Conditions [...] Resolved Indigo Other malaise 05/24 07/02 Yokum HOUSEPERSON and fatigue SLEEP APNEA, 327.23 Active Joseph Pineda Obstructive OBSTRUCTIVE, 06/27 06/27 Farooq DO sleep apnea MILD (adult) (pediatric) OVERWEIGHT 278.02 Inactive Joseph Pineda Overweight 06/28 06/28 Farooq DO Obesity 278.00 Active Indigo Obesity, 06/28 10/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 unspecified OTH GENERAL V70.3 Resolved Maite Gutierrez Other general MEDICAL Laura ONEAL medical EXAMINATION PhD examination for ADMIN administrative PURPOSES purposes OTHER 790.29 Resolved Maite C Other abnormal ABNORMAL 05/20 Laura ONEAL glucose GLUCOSE PhD ACUTE 466.0 Resolved Maite Gutierrez Acute bronchitis BRONCHITIS 09/02 Laura ONEAL PhD DEPENDENT 782.3 Resolved Indigo Edema EDEMA, LEGS, 10/29 10/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 BILATERAL HYPOKALEMIA, 276.8 Resolved Indigo Hypopotassemia MILD 10/29 07/02 Yokum HOUSEPERSON Diabetes, 250.00 Inactive Joseph Pineda Diabetes Type 2 06/27 06/27 Farooq DO mellitus without mention of complication, type II or unspecified type, not stated as uncontrolled Diabetes 250.02 Resolved Indigo Diabetes mellitus, 06/27 10/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 mellitus without type II, mention of uncontrolled [...] Resolved Indigo Routine gynecological 12/14 07/02 Yokum HOUSEPERSON gynecological examination examination Postmenopausa 627.1 Resolved Indigo Postmenopausal l bleeding 12/14 07/02 Yokum HOUSEPERSON bleeding Screening for V76.51 Resolved Indigo Screening for malignant 12/26 07/02 Yokum HOUSEPERSON malignant neoplasms of neoplasms of colon colon Insomnia, 307.42 Active Indigo 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 disorder of initiating or maintaining sleep Establish V68.89 Resolved Indigo Encounters for care or get 01/16 07/02 Yokum HOUSEPERSON other specified acquainted administrative visit purpose Weakness, 342.90 Resolved Indigo Hemiplegia, left side of 06/20 10/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 unspecified, body affecting unspecified side TIA 435.9 Active Indigo Unspecified 06/20 07/02 Yokum HOUSEPERSON transient cerebral ischemia Knee pain, 719.46 Active Indigo Pain in joint bilateral 06/20 10/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 involving lower leg Bronchitis 490 Resolved Indigo Bronchitis, not 07/23 10/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 specified as acute or chronic Diabetes 357.2 Active Maliheh Polyneuropathy mellitus, 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 Knee pain, 719.46 Active Indigo Pain in joint right 06/20 10/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 involving lower leg Jesi 112.3 Active Indigo Candidiasis of intertrigo 10/09 10/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 skin and nails Hyperlipidemi 272.4 Active Anne Other and a 12/24 12/24 Neil unspecified RMA hyperlipidemia Incontinence, 788.33 Active Indigo Mixed mixed, 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 HOUSEPERSON incontinence urge/stress (female) (male) Female stress 625.6 Active Yury Monaco Stress incontinence 01/03 01/03 Cy patel MD female Vaginal odor 623.8 Active Gloria Other specified 05/28 05/28 Naff DOCUMENTATION SPECIALIST noninflammatory disorders of vagina ABNORMAL VAGINAL ICD-626.9 Inactive Maite Sanchez BLEEDING PhD SCABIES ICD-133.0 Inactive Maite Sanchez PhD FATIGUE ICD-780.79 Inactive Indigo Yokum HOUSEPERSON OT GENERAL ICD-V70.3 Inactive Maite Gutierrez Laura MEDICAL MD PhD EXAMINATION ADMIN PURPOSES OTHER ABNORMAL ICD-790.29 Inactive Maite Matt Laura GLUCOSE PhD ACUTE BRONCHITIS ICD-466.0 Inactive Maite Matt Laura PhD DEPENDENT EDEMA, ICD-782.3 Inactive Indigo Yokum LEGS, BILATERAL HOUSEPERSON HYPOKALEMIA, MILD ICD-276.8 Inactive Indigo Yokum HOUSEPERSON Diabetes mellitus, ICD-250.02 Inactive Indigo Yokum type II, HOUSEPERSON uncontrolled Sinusitis, ICD-461.1 Inactive Ismael Coyne frontal, acute Amandeep ONEAL Laryngitis, acute ICD-464.00 Inactive Ismael Coyne Amandeep ONEAL Routine ICD-V72.31 Inactive Indigo Yokum gynecological HOUSEPERSON examination Postmenopausal ICD-627.1 Inactive Indigo Yokum 2015 bleeding HOUSEPERSON Screening for ICD-V76.51 Inactive Indigo Yokum 2015 malignant HOUSEPERSON neoplasms of colon Establish care or ICD-V68.89 Inactive Indigo Yokum get acquainted HOUSEPERSON visit Weakness, left ICD-342.90 Inactive Indigo Yokum side of body HOUSEPERSON Bronchitis ICD-490 Inactive Indigo Yokum HOUSEPERSON Medication List Medication Instructions Start Stop Generic NDC Status Provider Patient Date Date Name Instruction METFORMIN 2 tablets METFORMIN 11294137477 No Indigo Active HCL 500 MG by mouth HCL Longer Yokum TB24 twice Active HOUSEPERSON daily AMARYL 1 MG 1 tablet GLIMEPIRID 51059748408 No Indigo Active ORAL TABS orally E Longer Yokum twice Active HOUSEPERSON daily NYSTATIN apply to NYSTATIN 08192123967 Active Indigo Active 562028 rash TID Yokum UNIT/GM PRN HOUSEPERSON CREA TROKENDI XR 2 tab TOPIRAMATE 16819073420 Active Malihe Active 100 MG ORAL daily h [id number] Ziglar i CHARTER PILOT METOPROLOL 1 tab po METOPROLOL 99788786186 Active Indigo Active TARTRATE 25 bid TARTRATE Yokum MG TABS HOUSEPERSON AZITHROMYCI 2 po qd x AZITHROMYC 77812119481 No Jillin Active N 250 MG 1 day, IN Longer a TABS then 1 po Active Frazel qd x 4 l HOUSEPERSON days PREDNISONE 2 pills PREDNISONE 95258073375 No Jillin Active 20 MG TAB daily x 4 Longer a days Active Frazel l HOUSEPERSON PIOGLITAZON take one PIOGLITAZO 01380318122 Active Malihe Active E HCL 30 MG a day NE HCL h ORAL TABS Ziglar i CHARTER PILOT JANUVIA 100 1 tablet SITAGLIPTI 95364441190 No Indigo Active MG TABS by mouth N Longer Yokum daily PHOSPHATE Active HOUSEPERSON ATORVASTATI 1 pill by ATORVASTAT 07168258343 Active Indigo Active N CALCIUM mouth IN CALCIUM Yokum 10 MG TABS nightly, HOUSEPERSON for cholester ol ASPIRIN 81 1 po qd ASPIRIN 10777674784 Active Indigo Active MG ORAL Yokum TABS HOUSEPERSON NITROFURANT One NITROFURAN 13671152097 No Indigo Active OIN MONOHYD capsule TOIN Longer Yokum MACRO 100 BID for MONOHYD Active HOUSEPERSON MG CAPS UTI MACRO TRAMADOL 1/2 po TRAMADOL 97006642797 No Jillin Active HCL 50 MG tid with HCL Longer a TABS ES Active Frazel Tylenol l HOUSEPERSON prn pain VYVANSE 20 1 tablet LISDEXAMFE 17275191770 No Jillin Active MG ORAL daily for TAMINE Longer a CAPS binge DIMESYLATE Active Frazel eating l HOUSEPERSON disorder LASIX 20 MG 2 tablet FUROSEMIDE 35560596542 Active Indigo Active TAB by mouth Yokum daily HOUSEPERSON CELEBREX 1 tablet CELECOXIB 97796952447 Active Indigo Active 200 MG CAPS by mouth Yokum daily HOUSEPERSON with meals PREDNISONE 2 tablets PREDNISONE 35149724576 No Joseph Active 20 MG TAB today, Longer W Farooq then 1 Active DO tablet days 2-4 DIFLUCAN 1 tablet FLUCONAZOL 19079445511 No Joseph Active 100 MG TAB by mouth E Longer W Farooq daily x 3 Active DO days DIFLUCAN 1 tablet FLUCONAZOL 58833047154 No Joseph Active 100 MG TABS by mouth E Longer W Farooq every Active DO other day for 2 doses ZOFRAN 4 MG 1 po q6hr ONDANSETRO 10432652201 Active Joseph Active TABS PRN N HCL W Farooq Nausea DO PREDNISONE 2 tabs PREDNISONE 68077043017 No Joseph Active 20 MG TAB daily for Longer W Farooq 3 days, 1 Active DO tab daily for 3 days, 1/2 tab daily for 2 days AMOXICILLIN 2 po BID AMOXICILLI 55798476613 No Maite C Active 500 MG CAPS x 10 days N Longer Madril Active PhD LISINOPRIL 1 tablet LISINOPRIL 88980485301 No Maite C Active 20 MG TABS by mouth Longer Madril daily Active PhD POTASSIUM 2 capsule POTASSIUM 42457125815 No Joseph Active CHLORIDE CR by mouth CHLORIDE Longer W Farooq 10 MEQ CPCR daily Active DO SPIRONOLACT 1 tablet SPIRONOLAC 67244564871 No Joseph Active ONE 25 MG by mouth TONE Longer W Farooq TAB daily Active DO METFORMIN 1 tablet METFORMIN 20784570960 No Joseph Active HCL 500 MG by mouth HCL Longer W Farooq TABS twice Active DO daily AMARYL 1 MG 1 tab GLIMEPIRID 27645143415 No Joseph Active TABS twice E Longer W Farooq daily Active DO PHENTERMINE 1 po q am PHENTERMIN 41560995841 No Joseph Active HCL 37.5 MG for wt. E HCL Longer W Farooq TABS loss Active DO PROMETHAZIN 1 tab by PROMETHAZI 31190498287 No Joseph Active E HCL 25 MG mouth NE HCL Longer W Farooq TABS every 6 Active DO hours as needed CIPROFLOXAC Take one CIPROFLOXA 19948936695 No Joseph Active IN HCL 500 (1) DELORES HCL Longer W Farooq MG TABS tablet by Active DO mouth twice a day ABILIFY 5 one p.o. ARIPIPRAZO 30110761775 No Joseph Active MG TABS q. day LE Longer W Farooq Active DO HYDROCHLORO 2 tabs HYDROCHLOR 66162567585 No Joseph Active THIAZIDE 25 every OTHIAZIDE Longer W Farooq MG TABS morning Active DO ABILIFY 2 1 po q hs ARIPIPRAZO 94909039165 No Joseph Active MG TABS for major LE Longer W Farooq depressio Active DO n ADIPEX-P 1/2 tab PHENTERMIN 81600054650 No Casey Active 37.5 MG po q am E HCL Longer Leonarda CAPS for Active PA weight loss CIPRO 500 1 tablet CIPROFLOXA 16456382041 No Casey Active MG TAB by mouth DELORES HCL Longer Leonarda twice Active PA daily NECON 1/35 1 po NORETHINDR 08385956256 No Casey Active (28) 1-35 daily ONE-ETH Longer Leonarda MG-MCG TABS ESTRADIOL Active PA TRAMADOL 1 po tid TRAMADOL 99786732018 No Casey Active HCL 50 MG with ES HCL Longer Leonarda TABS Tylenol Active PA FLUCONAZOLE one p.o. FLUCONAZOL 70330592290 No Casey Active 100 MG TABS q. day 2 E Longer [place] days Active PA POTASSIUM 1 capsule POTASSIUM 38592754229 No Casey Active CHLORIDE CR by mouth CHLORIDE Longer [place] 10 MEQ CPCR daily Active PA IMIPRAMINE Take 6 IMIPRAMINE 02568038159 Active Indigo Active HCL 50 MG tablets HCL Yokum TABS by mouth HOUSEPERSON at bedtime DIFLUCAN 1 tablet FLUCONAZOL 76064769971 No Joseph Active 100 MG TAB by mouth E Longer W Farooq daily Active DO VERAPAMIL 2 po bid VERAPAMIL 48341150440 Active Indigo Active HCL CR 120 HCL Yokum MG TAB CR HOUSEPERSON PERMETHRIN apply PERMETHRIN 63938044983 No Joseph Active 5 % CREA neck to Longer W Farooq toes Active DO tonight and then rinse off in morning. repeat at 7 days SEROQUEL XR one p.o. QUETIAPINE 77726203331 No Joseph Active 50 MG q. FUMARATE Longer W Farooq [id number] evening Active DO TRAMADOL 1-2 TRAMADOL 24706129069 No Joseph Active HCL 50 MG tablets HCL Longer W Farooq TABS every 6-8 Active DO hours as needed for pain ALPRAZOLAM one p.o. ALPRAZOLAM 03894724737 Active Indigo Active 3 MG q.h.s. Yokum [id number] HOUSEPERSON ALPRAZOLAM Take 1 ALPRAZOLAM 61033165464 No Joseph Active XR tablet by [id number] Longer W Farooq [id number] mouth at Active DO bedtime DIFLUCAN 1 tablet FLUCONAZOL 18553825770 No Joseph Active 100 MG TAB by mouth E Longer W Farooq daily Active DO AMBIEN 10 1 tab by ZOLPIDEM 19771793658 Active Indigo Active MG TAB mouth at TARTRATE Yokum bedtime HOUSEPERSON as needed for sleep DIFLUCAN 100 1 tablet DIFLUCAN 990818 FLUCONAZOLE Inactive MG TAB by mouth 100 MG TAB daily ALPRAZOLAM Take 1 ALPRAZOLAM ALPRAZOLAM Inactive XR [id number] tablet by XR [id number] mouth at [id number] bedtime TRAMADOL HCL 1-2 TRAMADOL 308781 TRAMADOL HCL Inactive 50 MG TABS tablets HCL 50 MG every 6-8 TABS hours as needed for pain SEROQUEL XR one p.o. SEROQUEL XR QUETIAPINE Inactive 50 MG q. 50 MG FUMARATE [id number] evening [id number] PERMETHRIN 5 apply PERMETHRIN 304653 PERMETHRIN Inactive % CREA neck to 5 % CREA toes tonight and then rinse off in morning. repeat at 7 days DIFLUCAN 100 1 tablet DIFLUCAN 069945 FLUCONAZOLE Inactive MG TAB by mouth 100 MG TAB daily POTASSIUM 1 capsule POTASSIUM POTASSIUM Inactive CHLORIDE CR by mouth CHLORIDE CR CHLORIDE 10 MEQ CPCR daily 10 MEQ CPCR FLUCONAZOLE one p.o. FLUCONAZOLE 19760111 FLUCONAZOLE Inactive 100 MG TABS q. day 2 100 MG TABS days TRAMADOL HCL 1 po tid TRAMADOL 885548 TRAMADOL HCL Inactive 50 MG TABS with ES HCL 50 MG Tylenol TABS NECON 1/35 1 po NECON /35 NORETHINDRONE- Inactive (28) 1-35 daily (28) 1-35 ETH ESTRADIOL MG-MCG TABS MG-MCG TABS CIPRO 500 MG 1 tablet CIPRO 500 303026 CIPROFLOXACIN Inactive TAB by mouth MG TAB HCL twice daily ADIPEX-P 1/2 tab ADIPEX-P 299745 PHENTERMINE Inactive 37.5 MG CAPS po q am 37.5 MG HCL for CAPS weight loss ABILIFY 2 MG 1 po q hs ABILIFY 2 824040 ARIPIPRAZOLE Inactive TABS for major MG TABS depressio n HYDROCHLOROT 2 tabs HYDROCHLORO 713416 HYDROCHLOROTHI Inactive HIAZIDE 25 every THIAZIDE 25 AZIDE MG TABS morning MG TABS ABILIFY 5 MG one p.o. ABILIFY 5 474442 ARIPIPRAZOLE Inactive TABS q. day MG TABS CIPROFLOXACI Take one CIPROFLOXAC 196022 CIPROFLOXACIN Inactive N HCL 500 MG (1) IN HCL 500 HCL TABS tablet by MG TABS mouth twice a day PROMETHAZINE 1 tab by PROMETHAZIN 329570 PROMETHAZINE Inactive HCL 25 MG mouth E HCL 25 MG HCL TABS every 6 TABS hours as needed PHENTERMINE 1 po q am PHENTERMINE 456322 PHENTERMINE Inactive HCL 37.5 MG for wt. HCL 37.5 MG HCL TABS loss TABS AMARYL 1 MG 1 tab AMARYL 1 MG 688973 GLIMEPIRIDE Inactive TABS twice TABS daily METFORMIN 1 tablet METFORMIN 685119 METFORMIN HCL Inactive HCL 500 MG by mouth HCL 500 MG TABS twice TABS daily SPIRONOLACTO 1 tablet SPIRONOLACT 114594 SPIRONOLACTONE Inactive NE 25 MG TAB by mouth ONE 25 MG daily TAB POTASSIUM 2 capsule POTASSIUM POTASSIUM Inactive CHLORIDE CR by mouth CHLORIDE CR CHLORIDE 10 MEQ CPCR daily 10 MEQ CPCR LISINOPRIL 1 tablet LISINOPRIL 227419 LISINOPRIL Inactive 20 MG TABS by mouth 20 MG TABS daily DIFLUCAN 100 1 tablet DIFLUCAN 014818 FLUCONAZOLE Inactive MG TABS by mouth 100 MG TABS every other day for 2 doses DIFLUCAN 100 1 tablet DIFLUCAN 045488 FLUCONAZOLE Inactive MG TAB by mouth 100 MG TAB daily x 3 days PREDNISONE 2 tablets PREDNISONE 844484 PREDNISONE Inactive 20 MG TAB today, 20 MG TAB then 1 tablet days 2-4 VYVANSE 20 1 tablet VYVANSE 20 LISDEXAMFETAMI Inactive MG ORAL CAPS daily for MG ORAL NE DIMESYLATE binge CAPS eating disorder TRAMADOL HCL 1/2 po TRAMADOL 094358 TRAMADOL HCL Inactive 50 MG TABS tid with HCL 50 MG ES TABS Tylenol prn pain JANUVIA 100 1 tablet JANUVIA 100 SITAGLIPTIN Inactive MG TABS by mouth MG TABS PHOSPHATE daily AMARYL 1 MG 1 tablet AMARYL 1 MG 950450 GLIMEPIRIDE Inactive ORAL TABS orally ORAL TABS twice daily METFORMIN 2 tablets METFORMIN METFORMIN HCL Inactive HCL 500 MG by mouth HCL 500 MG TB24 twice TB24 daily AMOXICILLIN 2 po BID AMOXICILLIN 597656 AMOXICILLIN Inactive 500 MG CAPS x 10 days 500 MG CAPS PREDNISONE 2 tabs PREDNISONE 545311 PREDNISONE Inactive 20 MG TAB daily for 20 MG TAB 3 days, 1 tab daily for 3 days, 1/2 tab daily for 2 days NITROFURANTO One NITROFURANT 2587510 NITROFURANTOIN Inactive IN MONOHYD capsule OIN MONOHYD MONOHYD MACRO MACRO 100 MG BID for MACRO 100 CAPS UTI MG CAPS PREDNISONE 2 pills PREDNISONE 885992 PREDNISONE Inactive 20 MG TAB daily x 4 20 MG TAB days AZITHROMYCIN 2 po qd x AZITHROMYCI 8738158 AZITHROMYCIN Inactive 250 MG TABS 1 day, [...] HGBA1C - Chemistry sodium, serum 140 mmol/L 419-916 5546/06/03 potassium, serum 3.9 mmol/L 3.5-5.2 chloride, serum [...] Panel - Chemistry cholesterol, serum 157 mg/dL 334-892 0210/08/22 triglyceride, serum, fasting 215 mg/dL 30-200 HDL [...] mg/dL Encounters Code Encounter Date Provider Facility CPT-11164 Level 4 New Patient Yury Benoit MD [facility] 15:17:12 CDT CPT-53981 Level 3 Est. Patient [facility] - 13:37:46 CDT [place] CPT-09815 Level 4 Est. Patient [facility] - 10:01:06 CDT [place] CPT-43542 Level 3 Est. Patient [facility] 08:58:07 CDT CHARTER PILOT CPT-58439 Level 3 Est. Patient Faby Marino [facility] 14:40:56 CDT HOUSEPERSON CPT-87688 Level 4 Est. 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 Patient [facility] 09:51:54 OUT OF SCHOOL HOURS CARE WORKER CPT-89235 Level 3 Est. Patient Indigo Sexton [facility] 18:59:38 CDT CPT-59901 Level 3 Est. Patient Joseph Edwin [facility] 14:42:12 CDT -[facility] CPT-84651 Level 3 Est. Patient Joseph Edwin [facility] 22:18:20 CDT -[facility] CPT-78723 Level 3 Est. Patient Joseph Edwin [facility] 16:46:04 CDT -[facility]HC CPT-89866 Level 3 Est. Patient Savoy Edwin [facility] 15:39:53 CDT -RHC CPT-75344 Level 3 Est. Patient Maite Sanchez MD [facility] 13:33:34 CDT -RHC CPT-67186 Level 3 Est. Patient Savoy Edwin [facility] 11:37:08 CDT -[facility] CPT-49761 Level 3 Est. Patient Joseph Edwin [facility] 17:13:29 OUT OF SCHOOL HOURS CARE WORKER -RHC CPT-91980 Level 3 Est. Patient Joseph Edwin [facility] 18:42:44 CDT CPT-68767 Level 3 Est. Patient Savoy Edwin [facility] 16:25:39 CDT CPT-79041 Level 3 Est. Patient Casey ARCHIBALD [facility] 09:52:45 CDT -RHC CPT-09159 Level 3 Est. Patient Joseph Pineda [facility] 11:03:29 OUT OF SCHOOL HOURS CARE WORKER -RHC CPT-04165 Level 3 Est. Patient Savoy Edwin [facility] 11:03:08 OUT OF SCHOOL HOURS CARE WORKER -RHC CPT-85888 Level 3 Est. Patient Joseph Edwin [facility] 14:33:31 CDT -RHC CPT-89494 Level 3 Est. Patient [facility] 17:05:02 OUT OF SCHOOL HOURS CARE WORKER -RHC CPT-34563 Level 3 Est. Patient Joseph Trivedi [facility] 17:48:06 OUT OF SCHOOL HOURS CARE WORKER -C CPT-12842 Level 3 Est. Patient Joseph Trivedi [facility] 14:59:22 OUT OF SCHOOL HOURS CARE WORKER -RHC CPT-78220 Level 3 Est. Patient Joseph Trivedi [facility] - 21:45:56 OUT OF SCHOOL HOURS CARE WORKER Jose [facility] CPT-82499 Level 3 Est. Patient Joseph Trivedi [facility] 21:29:50 CDT -C CPT-93617 Level 3 Est. Patient Joseph Pineda [facility] 12:41:09 CDT -RHC Procedures Code Procedure Name Date Entry Date Standard Description CPT-53649 Wet Mount - LAB USE ONLY 12:39:03 OUT OF SCHOOL HOURS CARE WORKER CPT-17438 Vaginal Culture - LAB USE ONLY 12:39:03 OUT OF SCHOOL HOURS CARE WORKER CPT-43259 Urine Culture - LAB USE ONLY 11:52:44 OUT OF SCHOOL HOURS CARE WORKER CPT-58462 UA w micro - LAB USE ONLY 11:52:44 OUT OF SCHOOL HOURS CARE WORKER CPT-58850 Postop F/U Visit 12:08:35 CDT CPT-11843 Postop F/U Visit 18:20:10 CDT CPT-A4351 Coloplast Female Cath 09:37:10 CDT CPT-07351 Urine Dip (Floor Use Only) 15:17:13 CDT CPT-64453 Dil F ureth int 15:17:13 CDT CPT-50573 Venipuncture Draw Fee 09:19:08 CDT CPT-46190 Lipid - LAB USE ONLY 09:19:07 CDT CPT-JTINJ Asp/Joint Injection 09:26:49 CDT CPT-42387 Chest 2V Frontal and Lat 14:47:43 CDT CPT-JTINJ Asp/Joint Injection 09:51:53 OUT OF SCHOOL HOURS CARE WORKER CPT-OV Office Visit 17:39:05 CDT CPT-OV Office Visit 15:19:50 CDT CPT-97764 Sono transvag pelvis non OB uterus ovaries cervix 18:04:34 CDT CPT-97415 Venipuncture Draw Fee 08:55:49 OUT OF SCHOOL HOURS CARE WORKER
--- OUTSIDE RECORDS SUMMARY | 2016-11-20 13:13 | External Medical Summary | Clinical Summary ---
:1965 Author Organization [employer] Address [address] [place] [address] Phone Allergies, Adverse Reactions, Alerts Allergy Name Reaction Description Start Date Severity Status Provider NKDA Critical No Longer Indigo Yokum GENERAL OFFICE ASSISTANT Active NKDA Critical Inactive Adrianna Elder Conditions [...] Resolved Indigo Other malaise 05/24 07/02 [facility]okum GENERAL OFFICE ASSISTANT and fatigue SLEEP APNEA, 327.23 Active Joseph Pineda Obstructive OBSTRUCTIVE, 06/27 06/27 Faroqo CORDERO sleep apnea MILD (adult) (pediatric) OVERWEIGHT [...] Resolved Indigo Hypopotassemia MILD 10/29 07/02 Yo GENERAL OFFICE ASSISTANT Diabetes, Type 250.00 Inactive Jospeh Pineda Diabetes 2 06/27 06/27 Farooq DO mellitus without mention of complication, type II or unspecified type, not stated as uncontrolled Diabetes 250.02 Active Indigo Diabetes mellitus, type 06/27um GENERAL OFFICE ASSISTANT mellitus II, without mention uncontrolled of complication, [...] Resolved Indigo Routine gynecological 12/14 07/02 Yo GENERAL OFFICE ASSISTANT gynecological examination examination Postmenopausal 627.1 Resolved Indigo Postmenopausal bleeding 12/14 07/02 Youm GENERAL OFFICE ASSISTANT bleeding Screening for V76.51 Resolved Indigo Screening for malignant 12/26 07/02 Yokum GENERAL OFFICE ASSISTANT malignant neoplasms of neoplasms of colon colon Insomnia, 307.42 Active Indigo 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 GENERAL OFFICE ASSISTANT disorder of initiating or maintaining sleep Establish care V68.89 Resolved Indigo Encounters for or get 01/16 07/02 Yo GENERAL OFFICE ASSISTANT other specified acquainted administrative visit purpose Weakness, left 342.90 Active Indigo Hemiplegia, side of body 06/20 06/20 [facility]okum GENERAL OFFICE ASSISTANT unspecified, affecting unspecified side TIA 435.9 Active Indigo Unspecified 06/20 07/02 Yokum GENERAL OFFICE ASSISTANT transient cerebral ischemia Knee pain, 719.46 Active Indigo Pain in joint bilateral 06/20 07/02 [facility] GENERAL OFFICE ASSISTANT involving lower leg ABNORMAL VAGINAL ICD-626.9 Inactive Maite Sanchez BLEEDING PhD SCABIES ICD-133.0 Inactive Maite Sanchez PhD FATIGUE ICD-780.79 Inactive Indigo [employer] GENERAL OFFICE ASSISTANT OTH GENERAL ICD-V70.3 Inactive Maite Sanchez MEDICAL MD PhD EXAMINATION ADMIN PURPOSES OTHER ABNORMAL ICD-790.29 Inactive Maite Sanchez GLUCOSE PhD ACUTE BRONCHITIS ICD-466.0 Inactive Maite Sanchez PhD HYPOKALEMIA, MILD ICD-276.8 Inactive Indigo [facility]okum GENERAL OFFICE ASSISTANT Sinusitis, ICD-461.1 Inactive Ismael Coyne frontal, acute Amandeep ONEAL Laryngitis, acute ICD-464.00 Inactive Ismael Coyne Amandeep ONEAL Routine ICD-V72.31 Inactive Indigo Yokum gynecological GENERAL OFFICE ASSISTANT examination Postmenopausal ICD-627.1 Inactive Indigo Yokum 2015 bleeding GENERAL OFFICE ASSISTANT Screening for ICD-V76.51 Inactive Indigo [facility]okum 2015 malignant GENERAL OFFICE ASSISTANT neoplasms of colon Establish care or ICD-V68.89 Inactive Indigo Yokum get acquainted GENERAL OFFICE ASSISTANT visit Medication List Medication Instructions Start Stop Generic NDC Status Provider Patient Date Date Name Instruction PIOGLITAZONE take PIOGLITAZONE 81602835836 Active Maliheh Active HCL 30 MG ORAL one a HCL Ziglari TABS day 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 JANUVIA 100 MG 1 2 SITAGLIPTIN 60450703224 No Indigo Active TABS tablet 0 PHOSPHATE Longer [facility] by 1 Active GENERAL OFFICE ASSISTANT mouth 6 daily / 0 2 / 6 ATORVASTATIN 1 pill ATORVASTATIN 75098072055 Active Indigo Active CALCIUM 10 MG by CALCIUM [facility] TABS mouth GENERAL OFFICE ASSISTANT nightly , for cholest diana TROKENDI XR 100 1 tab TOPIRAMATE 74932210578 Active Indigo Active MG ORAL daily [facility] [id number] GENERAL OFFICE ASSISTANT ASPIRIN 81 MG 1 po qd ASPIRIN 70334227628 Active Indigo Active ORAL TABS [facility] GENERAL OFFICE ASSISTANT NITROFURANTOIN One 2 NITROFURANTOIN 70902310346 No Indigo Active MONOHYD MACRO capsule 0 MONOHYD MACRO Longer Yokum 100 MG CAPS BID for 1 Active GENERAL OFFICE ASSISTANT UTI 6 / 0 3 METFORMIN HCL 2 METFORMIN HCL 30371998359 Active Indigo Active 500 MG TB24 tablets [facility] by GENERAL OFFICE ASSISTANT mouth twice daily TRAMADOL HCL 50 1/2 po 2 TRAMADOL HCL 40062306156 No Jillina Active MG TABS tid 0 Longer [place] with ES 1 Active GENERAL OFFICE ASSISTANT Tylenol 5 prn / pain 0 / 2 VYVANSE 20 MG 1 2 LISDEXAMFETAMIN 26294179885 No Jillina Active ORAL CAPS tablet 0 E DIMESYLATE Longer [place] daily 1 Active GENERAL OFFICE ASSISTANT for 5 binge / eating 0 disorde 8 r / 1 2 LASIX 20 MG TAB 2 FUROSEMIDE 16199301451 Active Joseph W Active tablet Farooq DO by mouth daily CELEBREX 200 MG 1 CELECOXIB 32895168249 Active Joseph W Active CAPS tablet Farooq DO by mouth daily with meals PREDNISONE 20 2 2 PREDNISONE 72843812036 No Joseph W Active MG TAB tablets 0 Longer Farooq DO today, 1 Active then 1 5 tablet / days 0 2-4 4 3 DIFLUCAN 100 MG 1 2 FLUCONAZOLE 81979094724 No Joseph W Active TAB tablet 0 Longer Farooq DO by 1 Active mouth 5 daily x / 3 days 0 3 AMARYL 1 MG 1 GLIMEPIRIDE 90440531890 Active Joseph W Active ORAL TABS tablet Farooq DO orally twice daily DIFLUCAN 100 MG 1 2 FLUCONAZOLE 44858410238 No Joseph W Active TABS tablet 0 Longer Farooq DO by 1 Active mouth 5 every / other 0 day for 1 2 doses / 2 3 ZOFRAN 4 MG 1 po ONDANSETRON HCL 09654833113 Active Joseph W Active TABS q6hr Farooq DO PRN Nausea PREDNISONE 20 2 tabs 2 PREDNISONE 58249638707 No Joseph W Active MG TAB daily 0 Longer Farooq DO for 3 1 Active days, 1 4 tab / daily 1 for 3 0 days, / 1/2 tab 2 daily 5 for 2 days AMOXICILLIN 500 2 po 2 AMOXICILLIN 67770273971 No Maite C Active MG CAPS BID x 0 Longer Madril MD 10 days 1 Active PhD 4 / 1 0 / 2 0 LISINOPRIL 20 1 2 LISINOPRIL 90193297704 No Maite C Active MG TABS tablet 0 Longer Madril MD by 1 Active PhD mouth 4 daily / 1 0 / 1 0 POTASSIUM 2 2 POTASSIUM 43896518428 No Joseph W Active CHLORIDE CR 10 capsule 0 CHLORIDE Longer Farooq DO MEQ CPCR by 1 Active mouth 4 daily / 0 8 / 2 9 SPIRONOLACTONE 1 2 SPIRONOLACTONE 54653998877 No Joseph W Active 25 MG TAB tablet 0 Longer Farooq DO by 1 Active mouth 4 daily / 0 8 / 2 9 METFORMIN HCL 1 2 METFORMIN HCL 42115945758 No Joseph W Active 500 MG TABS tablet 0 Longer Farooq DO by 1 Active mouth 4 twice / daily 0 8 / 2 9 AMARYL 1 MG 1 tab 2 GLIMEPIRIDE 37010899698 No Joseph W Active TABS twice 0 Longer Farooq DO daily 1 Active 4 / 0 8 / 2 9 PHENTERMINE HCL 1 po q 2 PHENTERMINE HCL 66724115418 No Joseph W Active 37.5 MG TABS am for 0 Longer Farooq DO wt. 1 Active loss 3 / 1 2 / 2 3 PROMETHAZINE 1 tab 2 PROMETHAZINE 97978174600 No Joseph W Active HCL 25 MG TABS by 0 HCL Longer Farooq DO mouth 1 Active every 6 3 hours / as 0 needed 9 / 0 9 CIPROFLOXACIN Take 2 CIPROFLOXACIN 43268308668 No Joseph W Active HCL 500 MG TABS one (1) 0 HCL Longer Farooq DO tablet 1 Active by 3 mouth / twice a 0 day 9 / 0 9 ABILIFY 5 MG one 2 ARIPIPRAZOLE 48667283817 No Joseph W Active TABS p.o. q. 0 [facility]er [facility] day 1 Active 3 / 0 9 / 0 9 HYDROCHLOROTHIA 2 tabs 2 HYDROCHLOROTHIA 36261863725 No Joseph W Active ZIDE 25 MG TABS every 0 ZIDE Longer [facility] morning 1 Active 3 / 0 6 / 2 7 ABILIFY 2 MG 1 po q 2 ARIPIPRAZOLE 20054027482 No Joseph W Active TABS hs for 0 Longer [facility] major 1 Active depress 3 ion / 0 5 / 0 7 ADIPEX-P 37.5 1/2 tab 2 PHENTERMINE HCL 46131625140 No Casey Active MG CAPS po q am 0 Longer [place] for 1 Active weight 3 loss / 0 5 / 0 1 CIPRO 500 MG 1 2 CIPROFLOXACIN 99579162742 No Casey Active TAB tablet 0 HCL Longer [place] by 1 Active mouth 3 twice / daily 0 5 / 0 1 NECON 1/35 (28) 1 po 2 NORETHINDRONE-E 34153419035 No Casey Active 1-35 MG-MCG daily 0 TH ESTRADIOL Longer [place] TABS 1 Active 3 / 0 5 / 0 1 TRAMADOL HCL 50 1 po 2 TRAMADOL HCL 66762759317 No Casey Active MG TABS tid 0 Longer [place] with ES 1 Active Tylenol 3 / 0 5 / 0 1 FLUCONAZOLE 100 one 2 FLUCONAZOLE 01261992482 No Casey Active MG TABS p.o. q. 0 Longer [facility] day 2 1 Active days 3 / 0 5 / 0 1 POTASSIUM 1 2 POTASSIUM 94657442573 No Casey Active CHLORIDE CR 10 capsule 0 CHLORIDE Longer [place] MEQ CPCR by 1 Active mouth 3 daily / 0 5 / 0 1 IMIPRAMINE HCL Take 6 IMIPRAMINE HCL 15226883746 Active Joseph W Active 50 MG TABS tablets Farooq DO by mouth at bedtime DIFLUCAN 100 MG 1 2 FLUCONAZOLE 73832223890 No Joseph W Active TAB tablet 0 Longer Farooq DO by 1 Active mouth 2 daily / 0 2 / 2 4 METOPROLOL 1/2 tab METOPROLOL 76695515621 Active Joseph W Active TARTRATE 25 MG po bid TARTRATE Farooq DO TABS VERAPAMIL HCL 2 po VERAPAMIL HCL 06786895168 Active Joseph W Active CR 120 MG TAB bid Farooq DO CR PERMETHRIN 5 % apply 2 PERMETHRIN 46572222896 No Joseph W Active CREA neck to 0 Longer Farooq DO toes 1 Active tonight 2 and / then 0 rinse 1 off in / morning 2 . 0 repeat at 7 days SEROQUEL XR 50 one 2 QUETIAPINE 54158618861 No Joseph W Active MG [id number] p.o. q. 0 FUMARATE Longer Farooq DO evening 1 Active 2 / 0 1 / 2 0 TRAMADOL HCL 50 1-2 2 TRAMADOL HCL 60357480182 No Joseph W Active MG TABS tablets 0 Longer Farooq DO every 1 Active 6-8 2 hours / as 0 needed 1 for / pain 2 0 ALPRAZOLAM 3 MG one ALPRAZOLAM 09124062616 Active Indigo Active [id number] p.o. [facility] q.h.s. GENERAL OFFICE ASSISTANT ALPRAZOLAM XR Take 1 2 ALPRAZOLAM 14481446015 No Joseph W Active [id number] tablet 0 [id number] Longer Farooq DO by 1 Active mouth 1 at / bedtime 1 1 / 2 9 DIFLUCAN 100 MG 1 2 FLUCONAZOLE 21225193207 No Joseph W Active TAB tablet 0 Longer Farooq DO by 1 Active mouth 1 daily / 1 0 / 0 6 AMBIEN 10 MG 1 tab ZOLPIDEM 31519916179 Active Afsaneh Active TAB by TARTRATE Gericke, mouth MA at bedtime as needed for sleep DIFLUCAN 100 1 tablet DIFLUCAN 151554 FLUCONAZOLE Inactive MG TAB by mouth 100 MG TAB daily ALPRAZOLAM Take 1 ALPRAZOLAM ALPRAZOLAM Inactive XR [id number] tablet by XR [id number] mouth at [id number] bedtime TRAMADOL HCL 1-2 TRAMADOL 850652 TRAMADOL HCL Inactive 50 MG TABS tablets HCL 50 MG every 6-8 TABS hours as needed for pain SEROQUEL XR one p.o. SEROQUEL XR QUETIAPINE Inactive 50 MG q. 50 MG FUMARATE [id number] evening [id number] PERMETHRIN 5 apply PERMETHRIN 126748 PERMETHRIN Inactive % CREA neck to 5 % CREA toes tonight and then rinse off in morning. repeat at 7 days DIFLUCAN 100 1 tablet DIFLUCAN 752884 FLUCONAZOLE Inactive MG TAB by mouth 100 MG TAB daily POTASSIUM 1 capsule POTASSIUM POTASSIUM Inactive CHLORIDE CR by mouth CHLORIDE CR CHLORIDE 10 MEQ CPCR daily 10 MEQ CPCR FLUCONAZOLE one p.o. FLUCONAZOLE 19760111 FLUCONAZOLE Inactive 100 MG TABS q. day 2 100 MG TABS days TRAMADOL HCL 1 po tid TRAMADOL 783315 TRAMADOL HCL Inactive 50 MG TABS with ES HCL 50 MG Tylenol TABS NECON 1/35 1 po NECON 1/35 NORETHINDRONE- Inactive (28) 1-35 daily (28) 1-35 ETH ESTRADIOL MG-MCG TABS MG-MCG TABS CIPRO 500 MG 1 tablet CIPRO 500 294310 CIPROFLOXACIN Inactive TAB by mouth MG TAB HCL twice daily ADIPEX-P 1/2 tab ADIPEX-P 006175 PHENTERMINE Inactive 37.5 MG CAPS po q am 37.5 MG HCL for CAPS weight loss ABILIFY 2 MG 1 po q hs ABILIFY 2 106552 ARIPIPRAZOLE Inactive TABS for major MG TABS depressio n HYDROCHLOROT 2 tabs HYDROCHLORO 283551 HYDROCHLOROTHI Inactive HIAZIDE 25 every THIAZIDE 25 AZIDE MG TABS morning MG TABS ABILIFY 5 MG one p.o. ABILIFY 5 256961 ARIPIPRAZOLE Inactive TABS q. day MG TABS CIPROFLOXACI Take one CIPROFLOXAC 624108 CIPROFLOXACIN Inactive N HCL 500 MG (1) IN HCL 500 HCL TABS tablet by MG TABS mouth twice a day PROMETHAZINE 1 tab by PROMETHAZIN 970479 PROMETHAZINE Inactive HCL 25 MG mouth E HCL 25 MG HCL TABS every 6 TABS hours as needed PHENTERMINE 1 po q am PHENTERMINE 963885 PHENTERMINE Inactive HCL 37.5 MG for wt. HCL 37.5 MG HCL TABS loss TABS AMARYL 1 MG 1 tab AMARYL 1 MG 192089 GLIMEPIRIDE Inactive TABS twice TABS daily METFORMIN 1 tablet METFORMIN 314000 METFORMIN HCL Inactive HCL 500 MG by mouth HCL 500 MG TABS twice TABS daily SPIRONOLACTO 1 tablet SPIRONOLACT 923683 SPIRONOLACTONE Inactive NE 25 MG TAB by mouth ONE 25 MG daily TAB POTASSIUM 2 capsule POTASSIUM POTASSIUM Inactive CHLORIDE CR by mouth CHLORIDE CR CHLORIDE 10 MEQ CPCR daily 10 MEQ CPCR LISINOPRIL 1 tablet LISINOPRIL 539302 LISINOPRIL Inactive 20 MG TABS by mouth 20 MG TABS daily DIFLUCAN 100 1 tablet DIFLUCAN 524987 FLUCONAZOLE Inactive MG TABS by mouth 100 MG TABS every other day for 2 doses DIFLUCAN 100 1 tablet DIFLUCAN 848092 FLUCONAZOLE Inactive MG TAB by mouth 100 MG TAB daily x 3 days PREDNISONE 2 tablets PREDNISONE 568592 PREDNISONE Inactive 20 MG TAB today, 20 MG TAB then 1 tablet days 2-4 VYVANSE 20 1 tablet VYVANSE 20 LISDEXAMFETAMI Inactive MG ORAL CAPS daily for MG ORAL NE DIMESYLATE binge CAPS eating disorder TRAMADOL HCL 1/2 po TRAMADOL 652212 TRAMADOL HCL Inactive 50 MG TABS tid with HCL 50 MG ES TABS Tylenol prn pain JANUVIA 100 1 tablet JANUVIA 100 SITAGLIPTIN Inactive MG TABS by mouth MG TABS PHOSPHATE daily AMOXICILLIN 2 po BID AMOXICILLIN 558255 AMOXICILLIN Inactive 500 MG CAPS x 10 days 500 MG CAPS PREDNISONE 2 tabs PREDNISONE 580400 PREDNISONE Inactive 20 MG TAB daily for 20 MG TAB 3 days, 1 tab daily for 3 days, 1/2 tab daily for 2 days NITROFURANTO One NITROFURANT 5334273 NITROFURANTOIN Inactive IN MONOHYD capsule OIN MONOHYD [...] HGBA1C - Chemistry sodium, serum 140 mmol/L 756-562 7692/04/13 potassium, serum 3.9 mmol/L 3.5-5.2 chloride, serum [...] 198 10^3/MM^3 10*3/mm3 142-424 Lab Report: Chlamydia/GC APTIMA/03039 - Lab chlamydia DNA probe NOT DETECTED NOT DETECTED Lab Report: Chlamydia/GC APTIMA/39738 - Microbiology Neisseria gonorrhoeae DNA probe NOT DETECTED NOT DETECTED Lab Report: Comp. Metabolic Panel, Lipid Panel - Chemistry sodium, serum 136 mmol/L 026-493 2683/01/04 carbon dioxide, venous blood 27.0 mmol/L 21.0-32.0 potassium, serum 4.6 mmol/L 3.5-5.2 chloride, serum 98 mmol/L 98-107 blood glucose 174 mg/dL 65-110 urea nitrogen, blood 12 mg/dL 7-18 creatinine, serum 0.78 mg/dL 0.55-1.30 alanine aminotransferase (SGPT), serum 65 U/L 12-78 aspartate aminotransferase (SGOT), serum 34 U/L 15-37 calcium, serum 8.9 mg/dL 8.5-10.1 bilirubin, serum, total 0.40 mg/dL 0.00-1.00 cholesterol, serum 219 mg/dL 530-049 7679/01/04 triglyceride, serum, fasting 214 mg/dL 30-200 HDL [...] mg/g mg/g{creat} 0-29 sodium, serum 140 mmol/L 883-807 6718/07/21 potassium, serum 3.9 mmol/L 3.5-5.2 chloride, serum [...] Yes Encounters Code Encounter Date Provider Facility CPT-67050 Level 4 Est. 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 Patient [facility] 09:51:54 MINK FARMER CPT-37545 Level 3 Est. Patient Critical access hospital 18:59:38 CDT CPT-69717 Level 3 Est. Patient Joseph Edwin [facility] 14:42:12 CDT -RHC CPT-83929 Level 3 Est. Patient Joseph Pineda [facility] 22:18:20 CDT -RHC CPT-68567 Level 3 Est. Patient Joseph Edwin [facility] 16:46:04 CDT -RHC CPT-80594 Level 3 Est. Patient Joseph Pineda [facility] 15:39:53 CDT -RHC CPT-00480 Level 3 Est. Patient Maite Sanchez MD [facility] 13:33:34 CDT -RHC CPT-90605 Level 3 Est. Patient Joseph W [facility] 11:37:08 CDT -RHC CPT-12637 Level 3 Est. Patient Joseph Pineda [facility] 17:13:29 MINK FARMER -RHC CPT-98913 Level 3 Est. Patient Joseph Edwin [facility] 18:42:44 CDT CPT-65307 Level 3 Est. Patient Rowena Edwin [facility] 16:25:39 CDT CPT-17620 Level 3 Est. Patient Casey Garzaner [facility] 09:52:45 CDT -RHC CPT-42878 Level 3 Est. Patient Joseph Edwin [facility] 11:03:29 MINK FARMER -RHC CPT-87416 Level 3 Est. Patient [facility] 11:03:08 MINK FARMER -RHC CPT-20629 Level 3 Est. Patient [facility] 14:33:31 CDT -RHC CPT-81291 Level 3 Est. Patient [facility] 17:05:02 MINK FARMER -RHC CPT-53265 Level 3 Est. Patient [facility] 17:48:06 MINK FARMER -RHC CPT-90390 Level 3 Est. Patient [facility] 14:59:22 MINK FARMER -RHC CPT-58431 Level 3 Est. Patient [facility] - 21:45:56 MINK FARMER Jose RHC CPT-56723 Level 3 Est. Patient [facility] 21:29:50 CDT -RHC CPT-78338 Level 3 Est. Patient [facility] 12:41:09 CDT -RHC Procedures Code Procedure Name Date Entry Date Standard Description CPT-JTINJ Asp/Joint Injection 09:51:53 MINK FARMER CPT-OV Office Visit 17:39:05 CDT CPT-OV Office Visit 15:19:50 CDT CPT-29356 Sono transvag pelvis non OB uterus ovaries cervix 18:04:34 T CPT-20831 Venipuncture Draw Fee 08:55:49 MINK FARMER
--- OUTSIDE RECORDS SUMMARY | 2016-11-20 13:14 | External Medical Summary | Clinical Summary ---
:[address] [facility] Movie[employer] Address [address] [address] Phone Allergies, Adverse Reactions, Alerts Allergy Name Reaction Description Start Date Severity Status Provider VERSED States jsut about Critical Active Gloria Saavedra HAT IRONER killed her NKDA Critical Active Indigo Yokum SECURITY SITE SUPERVISOR NKDA Critical No Longer Indigo Yokum SECURITY SITE SUPERVISOR Active NKDA Critical Inactive Adrianna Elder Conditions [...] 311 Active Indigo Depressive chronic 09/20 Yokum SECURITY SITE SUPERVISOR disorder, not elsewhere classified SCABIES 133.0 Resolved Maite Gtuierrez Scabies 06/23 Laura ONEAL PhD HYPERTENSION 401.9 Active Joseph Pineda Unspecified 05/24 Farooq DO essential hypertension FATIGUE 780.79 Resolved Indigo Other malaise 05/24 07/02 Yokum SECURITY SITE SUPERVISOR and fatigue SLEEP APNEA, 327.23 Active Joseph Pineda Obstructive OBSTRUCTIVE, 06/27 06/27 Farooq DO sleep apnea MILD (adult) (pediatric) OVERWEIGHT 278.02 Inactive Joseph Pineda Overweight 06/28 06/28 Farooq DO Obesity 278.00 Active Indigo Obesity, 06/28 10/18 Yokum SECURITY SITE SUPERVISOR unspecified OT GENERAL V70.3 Resolved Maite C Other general MEDICAL Laura ONEAL medical EXAMINATION PhD examination for ADMIN administrative PURPOSES purposes OTHER 790.29 Resolved Maite C Other abnormal ABNORMAL 05/20 Laura ONEAL glucose GLUCOSE PhD ACUTE 466.0 Resolved Maite Gutierrez Acute bronchitis BRONCHITIS 09/02 Laura ONEAL PhD DEPENDENT 782.3 Resolved Indigo Edema EDEMA, LEGS, 10/29 10/18 Yokum SECURITY SITE SUPERVISOR BILATERAL HYPOKALEMIA, 276.8 Resolved Indigo Hypopotassemia MILD 10/29 07/02 Yo SECURITY SITE SUPERVISOR Diabetes, 250.00 Inactive Joseph Pineda Diabetes Type 2 06/27 06/27 Farooq DO mellitus without mention of complication, type II or unspecified type, not stated as uncontrolled Diabetes 250.02 Resolved Indigo Diabetes mellitus, 06/27 10/18 Yokum SECURITY SITE SUPERVISOR mellitus without type II, mention of uncontrolled [...] Resolved Indigo Routine gynecological 12/14 07/02 Yo SECURITY SITE SUPERVISOR gynecological examination examination Postmenopausa 627.1 Resolved Indigo Postmenopausal l bleeding 12/14 07/02 Yokum SECURITY SITE SUPERVISOR bleeding Screening for V76.51 Resolved Indigo Screening for malignant 12/26 07/02 Yokum SECURITY SITE SUPERVISOR malignant neoplasms of neoplasms of colon colon Insomnia, 307.42 Active 2015/0 Indigo 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 SECURITY SITE SUPERVISOR disorder of initiating or maintaining sleep Establish V68.89 Resolved Indigo Encounters for care or get 01/16 07/02 Yokum SECURITY SITE SUPERVISOR other specified acquainted administrative visit purpose Weakness, 342.90 Resolved Indigo Hemiplegia, left side of 06/20 10/18 Yokum SECURITY SITE SUPERVISOR unspecified, body affecting unspecified side TIA 435.9 Active Indigo Unspecified 06/20 07/02 Yokum SECURITY SITE SUPERVISOR transient cerebral ischemia Knee pain, 719.46 Active Indigo Pain in joint bilateral 06/20 10/18 Yokum SECURITY SITE SUPERVISOR involving lower leg Bronchitis 490 Resolved Indigo Bronchitis, not 07/23 10/18 Yokum SECURITY SITE SUPERVISOR specified as acute or chronic Diabetes 357.2 Active Maliheh Polyneuropathy mellitus, 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 y Knee pain, 719.46 Resolved Indigo Pain in joint right 06/20 09/20 Yokum SECURITY SITE SUPERVISOR involving lower leg Jesi 112.3 Resolved Indigo Candidiasis of intertrigo 10/09 09/20 Yokum SECURITY SITE SUPERVISOR skin and nails Hyperlipidemi 272.4 Active Anne Other and a 12/24 12/24 Neil unspecified RMA hyperlipidemia Incontinence, 788.33 Resolved Indigo Mixed mixed, 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 SECURITY SITE SUPERVISOR incontinence urge/stress (female) (male) Female stress 625.6 Active Yury Monaco Stress incontinence 01/03 01/03 Cy patel MD female Vaginal odor 623.8 Resolved Indigo Other specified 05/28 09/20 Yokum SECURITY SITE SUPERVISOR noninflammatory disorders of vagina Urinary tract 599.0 Resolved Indigo Urinary tract infection 05/28 09/20 Yokum SECURITY SITE SUPERVISOR infection, site not specified Urine odor 791.9 Resolved Indigo Other 05/28 09/20 Yokum SECURITY SITE SUPERVISOR nonspecific findings on examination of urine Unspecified Resolved Indigo dyspareunia 08/19 09/20 Yokum SECURITY SITE SUPERVISOR Depression Resolved Indigo 09/20 Yokum SECURITY SITE SUPERVISOR Anxiety Active Indigo Anxiety state, Disorder 08/26 SECURITY SITE SUPERVISOR unspecified ABNORMAL VAGINAL ICD-626.9 Inactive Maite C Laura BLEEDING PhD SCABIES ICD-133.0 Inactive Maite C Laura PhD FATIGUE ICD-780.79 Inactive Indigo Yokum SECURITY SITE SUPERVISOR OTH GENERAL ICD-V70.3 Inactive Maite C Laura MEDICAL MD PhD EXAMINATION ADMIN PURPOSES OTHER ABNORMAL ICD-790.29 Inactive Maite C Ronyril GLUCOSE PhD ACUTE BRONCHITIS ICD-466.0 Inactive Maite C Laura PhD DEPENDENT EDEMA, ICD-782.3 Inactive Indigo Yokum LEGS, BILATERAL SECURITY SITE SUPERVISOR HYPOKALEMIA, MILD ICD-276.8 Inactive Indigo Yokum SECURITY SITE SUPERVISOR Diabetes mellitus, ICD-250.02 Inactive Indigo Yokum type II, SECURITY SITE SUPERVISOR uncontrolled Sinusitis, ICD-461.1 Inactive Ismael Coyne frontal, acute Amandeep ONEAL Laryngitis, acute ICD-464.00 Inactive Ismael Coyne Amandeep ONEAL Routine ICD-V72.31 Inactive Indigo Yokum gynecological SECURITY SITE SUPERVISOR examination Postmenopausal ICD-627.1 Inactive Indigo Yokum 2015 bleeding SECURITY SITE SUPERVISOR Screening for ICD-V76.51 Inactive Indigo Yokum 2015 malignant SECURITY SITE SUPERVISOR neoplasms of colon Establish care or ICD-V68.89 Inactive Indigo Yokum get acquainted SECURITY SITE SUPERVISOR visit Weakness, left ICD-342.90 Inactive Indigo Yokum side of body SECURITY SITE SUPERVISOR Bronchitis ICD-490 Inactive Indigo Yokum SECURITY SITE SUPERVISOR Knee pain, right ICD-719.46 Inactive Indigo Yokum SECURITY SITE SUPERVISOR Jesi intertrigo ICD-112.3 Inactive Indigo Yokum SECURITY SITE SUPERVISOR Incontinence, ICD-788.33 Inactive Indigo Yokum 2016 mixed, urge/stress SECURITY SITE SUPERVISOR Vaginal odor ICD-623.8 Inactive Indigo Yokum 09/20 SECURITY SITE SUPERVISOR Urinary tract ICD-599.0 Inactive Indigo Yokum 09/20 infection SECURITY SITE SUPERVISOR Urine odor ICD-791.9 Inactive Indigo Yokum SECURITY SITE SUPERVISOR Unspecified Inactive Indigo Yokum dyspareunia SECURITY SITE SUPERVISOR Depression Inactive Indigo Yokum SECURITY SITE SUPERVISOR Medication List Medication Instructions Start Stop Generic NDC Status Provider Patient Date Date Name Instruction ALPRAZOLAM 3 one p.o. ALPRAZOLAM 13663367188 Active Indigo Active MG [id number] q.h.s. Yokum SECURITY SITE SUPERVISOR ABILIFY 10 MG Take one ARIPIPRAZOLE 47502545658 Active Indigo Active ORAL TABS tablet Yokum daily for SECURITY SITE SUPERVISOR depression CELEBREX 200 1 tablet 2 CELECOXIB 33358308864 No Indigo Active MG CAPS by mouth 0 Longer Yokum daily with 1 Active SECURITY SITE SUPERVISOR meals 7 / 0 4 / 2 4 TROKENDI XR 1 tab by 2 TOPIRAMATE 94257562523 No Indigo Active 100 MG ORAL mouth 0 Longer Yokum [id number] daily 1 Active SECURITY SITE SUPERVISOR 7 0 4 VESICARE 10 MG 1 pill by SOLIFENACIN 61685380688 Active J Carlos Enrique Active TABS mouth SUCCINATE Benoit daily for MD overactive bladder CIPRO 250 MG 1 tablet 2 CIPROFLOXACIN 55052246326 No Indigo Active TAB by mouth 0 HCL Longer Yokum twice 1 Active SECURITY SITE SUPERVISOR daily 7 METFORMIN HCL 2 tablets 2 METFORMIN HCL 22808943771 No Indigo Active 500 MG TB24 by mouth 0 Longer Yokum twice 1 Active SECURITY SITE SUPERVISOR daily 2 AMARYL 1 MG 1 tablet 2 GLIMEPIRIDE 59992217997 No Indigo Active ORAL TABS orally 0 Longer Yokum twice 1 Active SECURITY SITE SUPERVISOR daily 2 NYSTATIN apply to NYSTATIN 30626638461 Active Indigo Active 563983 UNIT/GM rash TID Yokum CREA PRN SECURITY SITE SUPERVISOR METOPROLOL 1 tab po METOPROLOL 35099415926 Active Indigo Active TARTRATE 25 MG bid TARTRATE Yokum TABS SECURITY SITE SUPERVISOR AZITHROMYCIN 2 po qd x 2 AZITHROMYCIN 18792442597 No Jillina Active 250 MG TABS 1 day, 0 Longer Frazell then 1 po 1 Active SECURITY SITE SUPERVISOR qd x 4 6 days / 0 3 / 2 6 PREDNISONE 20 2 pills 2 PREDNISONE 10962799523 No Jillina Active MG TAB daily x 4 0 Longer Frazell days 1 Active SECURITY SITE SUPERVISOR 6 / 0 3 / 2 5 PIOGLITAZONE take one a PIOGLITAZONE 98180416046 Active Maliheh Active HCL 30 MG ORAL day HCL Ziglari TABS PANTRY ATTENDANT JANUVIA 100 MG 1 tablet 2 SITAGLIPTIN 80529520144 No Indigo Active TABS by mouth 0 PHOSPHATE Longer Yokum daily 1 Active SECURITY SITE SUPERVISOR 6 / 0 2 / 1 6 ATORVASTATIN 1 pill by ATORVASTATIN 57749360592 Active Hannah Active CALCIUM 10 MG mouth CALCIUM Neal TABS nightly, SECURITY SITE SUPERVISOR for cholestero l ASPIRIN 81 MG 1 po qd ASPIRIN 33038222029 Active Indigo Active ORAL TABS Yokum SECURITY SITE SUPERVISOR NITROFURANTOIN One 2 NITROFURANTOIN 21079458190 No Indigo Active MONOHYD MACRO capsule 0 MONOHYD MACRO Longer Yokum 100 MG CAPS BID for 1 Active SECURITY SITE SUPERVISOR UTI 6 / 0 2 / 1 3 TRAMADOL HCL 1/2 po tid 2 TRAMADOL HCL 92981257540 No Jillina Active 50 MG TABS with ES 0 Longer Frazell Tylenol 1 Active SECURITY SITE SUPERVISOR prn pain 5 / 0 2 VYVANSE 20 MG 1 tablet 2 LISDEXAMFETAMI 20807264022 No Jillina Active ORAL CAPS daily for 0 NE DIMESYLATE Longer Frazell binge 1 Active SECURITY SITE SUPERVISOR eating 5 disorder / 0 2 LASIX 20 MG 2 tablet FUROSEMIDE 24472946108 Active Ranulfo Villalpando Active TAB by mouth [place] daily PREDNISONE 20 2 tablets 2 PREDNISONE 04467887835 No Joseph W Active MG TAB today, 0 Longer Farooq DO then 1 1 Active tablet 5 days 2-4 / 0 3 DIFLUCAN 100 1 tablet 2 FLUCONAZOLE 69782034658 No Joseph W Active MG TAB by mouth 0 Longer Farooq DO daily x 3 1 Active days 5 / 0 1 3 DIFLUCAN 100 1 tablet 2 FLUCONAZOLE 86139547550 No Joseph W Active MG TABS by mouth 0 Longer Farooq DO every 1 Active other day 5 for 2 / doses 0 1 / 2 3 ZOFRAN 4 MG 1 po q6hr ONDANSETRON 26550410209 Active Joseph W Active TABS PRN Nausea HCL Farooq DO PREDNISONE 20 2 tabs 2 PREDNISONE 41716206461 No Joseph W Active MG TAB daily for 0 Longer Farooq DO 3 days, 1 1 Active tab daily 4 for 3 / days, 1/2 1 tab daily 0 for 2 days / 2 5 AMOXICILLIN 2 po BID x 2 AMOXICILLIN 73040070804 No Maite C Active 500 MG CAPS 10 days 0 Longer Madril 1 Active PhD 4 / 1 0 / 2 0 LISINOPRIL 20 1 tablet 2 LISINOPRIL 63659900131 No Maite C Active MG TABS by mouth 0 Longer Madril daily 1 Active PhD 4 / 0 / 1 0 POTASSIUM 2 capsule 2 POTASSIUM 59277390427 No Joseph W Active CHLORIDE CR 10 by mouth 0 CHLORIDE Longer Farooq DO MEQ CPCR daily 1 Active 4 / 0 8 / 2 9 SPIRONOLACTONE 1 tablet 2 SPIRONOLACTONE 91032803347 No Joseph W Active 25 MG TAB by mouth 0 Longer Farooq DO daily 1 Active 4 / 0 8 / 2 9 METFORMIN HCL 1 tablet 2 METFORMIN HCL 36540313411 No Joseph W Active 500 MG TABS by mouth 0 Longer Farooq DO twice 1 Active daily 4 / 0 8 / 2 9 AMARYL 1 MG 1 tab 2 GLIMEPIRIDE 21591221680 No Joseph W Active TABS twice 0 Longer Farooq DO daily 1 Active 4 / 0 8 / 2 9 PHENTERMINE 1 po q am 2 PHENTERMINE 58102334340 No Joseph W Active HCL 37.5 MG for wt. 0 HCL Longer Farooq DO TABS loss 1 Active 3 / 1 2 / 2 3 PROMETHAZINE 1 tab by 2 PROMETHAZINE 97097728676 No Joseph W Active HCL 25 MG TABS mouth 0 HCL Longer Farooq DO every 6 1 Active hours as 3 needed / 0 9 / 0 9 CIPROFLOXACIN Take one 2 CIPROFLOXACIN 95963415997 No Joseph W Active HCL 500 MG (1) tablet 0 HCL Longer Farooq DO TABS by mouth 1 Active twice a 3 day / 0 9 / 0 9 ABILIFY 5 MG one p.o. 2 ARIPIPRAZOLE 31847924501 No Joseph W Active TABS q. day 0 Longer Farooq DO 1 Active 3 / 0 9 / 0 9 HYDROCHLOROTHI 2 tabs 2 HYDROCHLOROTHI 28362463920 No Joseph W Active AZIDE 25 MG every 0 AZIDE Longer Farooq DO TABS morning 1 Active 3 / 0 6 / 2 7 ABILIFY 2 MG 1 po q hs 2 ARIPIPRAZOLE 02589361632 No Joseph W Active TABS for major 0 Longer Farooq DO depression 1 Active 3 / 0 5 / 0 7 ADIPEX-P 37.5 1/2 tab po 2 PHENTERMINE 02758011487 No Casey Active MG CAPS q am for 0 HCL Longer weight 1 Active PA loss 3 / 0 5 / 0 1 CIPRO 500 MG 1 tablet 2 CIPROFLOXACIN 95349082437 No Casey Active TAB by mouth 0 HCL Longer Leonarda twice 1 Active PA daily 3 / 0 5 / 0 1 NECON 1 po daily 2 NORETHINDRONE- 07004334956 No Casey Active () 1-35 0 ETH ESTRADIOL Longer MG-MCG TABS 1 Active PA 3 / 0 5 / 0 1 TRAMADOL HCL 1 po tid 2 TRAMADOL HCL 60118781410 No Casey Active 50 MG TABS with ES 0 Longer Tylenol 1 Active PA 3 / 0 5 / 0 1 FLUCONAZOLE one p.o. 2 FLUCONAZOLE 65902886307 No Casey Active 100 MG TABS q. day 2 0 Longer days 1 Active PA 3 / 0 5 / 0 1 POTASSIUM 1 capsule 2 POTASSIUM 54812824691 No Casey Active CHLORIDE CR 10 by mouth 0 CHLORIDE Longer MEQ CPCR daily 1 Active PA 3 / 0 5 / 0 1 IMIPRAMINE HCL Take 6 IMIPRAMINE HCL 93938131849 Active Indigo Active 50 MG TABS tablets by Yokum mouth at SECURITY SITE SUPERVISOR bedtime DIFLUCAN 100 1 tablet 2 FLUCONAZOLE 85811452281 No Joseph W Active MG TAB by mouth 0 Longer Farooq DO daily 1 Active 2 / 0 2 / 2 4 VERAPAMIL HCL 2 po bid VERAPAMIL HCL 84808129594 Active Indigo Active CR 120 MG TAB Yokum CR SECURITY SITE SUPERVISOR PERMETHRIN 5 % apply neck 2 PERMETHRIN 69533825315 No Joseph W Active CREA to toes 0 Longer Farooq DO tonight 1 Active and then 2 rinse off / in 0 morning. 1 repeat at / 7 days 2 0 SEROQUEL XR 50 one p.o. 2 QUETIAPINE 50214574805 No Joseph W Active MG [id number] q. evening 0 FUMARATE Longer Farooq DO 1 Active 2 / 0 1 / 2 0 TRAMADOL HCL 1-2 2 TRAMADOL HCL 82036254619 No Joseph W Active 50 MG TABS tablets 0 Longer Farooq DO every 6-8 1 Active hours as 2 needed for / pain 0 1 / 2 0 ALPRAZOLAM XR Take 1 2 ALPRAZOLAM 96187173888 No Joseph W Active [id number] tablet by 0 [id number] Longer Farooq DO mouth at 1 Active bedtime 1 / 2 9 DIFLUCAN 100 1 tablet 2 FLUCONAZOLE 43712140313 No Joseph W Active MG TAB by mouth 0 Longer Farooq DO daily 1 Active 0 / 0 6 AMBIEN 10 MG 1 tab by ZOLPIDEM 71731863296 Active Indigo Active TAB mouth at TARTRATE Yokum bedtime as SECURITY SITE SUPERVISOR needed for sleep DIFLUCAN 100 1 tablet DIFLUCAN 834970 FLUCONAZOLE Inactive MG TAB by mouth 100 MG TAB daily ALPRAZOLAM Take 1 ALPRAZOLAM ALPRAZOLAM Inactive XR [id number] tablet by XR [id number] mouth at [id number] bedtime TRAMADOL HCL 1-2 TRAMADOL 887114 TRAMADOL HCL Inactive 50 MG TABS tablets HCL 50 MG every 6-8 TABS hours as needed for pain SEROQUEL XR one p.o. SEROQUEL XR QUETIAPINE Inactive 50 MG q. 50 MG FUMARATE [id number] evening [id number] PERMETHRIN 5 apply PERMETHRIN 785792 PERMETHRIN Inactive % CREA neck to 5 [...] days TRAMADOL HCL 1 po tid TRAMADOL 847196 TRAMADOL HCL Inactive 50 MG TABS with ES HCL 50 MG Tylenol TABS NECON 35 1 po NECON NORETHINDRONE- Inactive (28) 1-35 daily (28) 1-35 ETH ESTRADIOL MG-MCG TABS MG-MCG TABS CIPRO 500 MG 1 tablet CIPRO 500 417750 CIPROFLOXACIN Inactive TAB by mouth MG TAB HCL twice daily ADIPEX-P 1/2 tab ADIPEX-P 621472 PHENTERMINE Inactive 37.5 MG CAPS po q am 37.5 MG HCL for CAPS weight loss ABILIFY 2 MG 1 po q hs ABILIFY 2 568146 ARIPIPRAZOLE Inactive TABS for major MG TABS depressio n HYDROCHLOROT 2 tabs HYDROCHLORO 426266 HYDROCHLOROTHI Inactive HIAZIDE 25 every THIAZIDE 25 AZIDE MG TABS morning MG TABS ABILIFY 5 MG one p.o. ABILIFY 5 307845 ARIPIPRAZOLE Inactive TABS q. day MG TABS CIPROFLOXACI Take one CIPROFLOXAC 119707 CIPROFLOXACIN Inactive N HCL 500 MG (1) IN HCL 500 HCL TABS tablet by MG TABS mouth twice a day PROMETHAZINE 1 tab by PROMETHAZIN 953890 PROMETHAZINE Inactive HCL 25 MG mouth E HCL 25 MG HCL TABS every 6 TABS hours as needed PHENTERMINE 1 po q am PHENTERMINE 899552 PHENTERMINE Inactive HCL 37.5 MG for wt. HCL 37.5 MG HCL TABS loss TABS AMARYL 1 MG 1 tab AMARYL 1 MG 954957 GLIMEPIRIDE Inactive TABS twice TABS daily METFORMIN 1 tablet METFORMIN 251231 METFORMIN HCL Inactive HCL 500 MG by mouth HCL 500 MG TABS twice TABS daily SPIRONOLACTO 1 tablet SPIRONOLACT 903083 SPIRONOLACTONE Inactive NE 25 MG TAB by mouth ONE 25 MG daily TAB POTASSIUM 2 capsule POTASSIUM POTASSIUM Inactive CHLORIDE CR by mouth CHLORIDE CR CHLORIDE 10 MEQ CPCR daily 10 MEQ CPCR LISINOPRIL 1 tablet LISINOPRIL 550424 LISINOPRIL Inactive 20 MG TABS by mouth 20 MG TABS daily DIFLUCAN 100 1 tablet DIFLUCAN 966570 FLUCONAZOLE Inactive MG TABS by mouth 100 MG TABS every other day for 2 doses DIFLUCAN 100 1 tablet DIFLUCAN 727252 FLUCONAZOLE Inactive MG TAB by mouth 100 MG TAB daily x 3 days PREDNISONE 2 tablets PREDNISONE 691649 PREDNISONE Inactive 20 MG TAB today, 20 MG TAB then 1 tablet days 2-4 VYVANSE 20 1 tablet VYVANSE 20 LISDEXAMFETAMI Inactive MG ORAL CAPS daily for MG ORAL NE DIMESYLATE binge CAPS eating disorder TRAMADOL HCL 1/2 po TRAMADOL 963143 TRAMADOL HCL Inactive 50 MG TABS tid with HCL 50 MG ES TABS Tylenol prn pain JANUVIA 100 1 tablet JANUVIA 100 SITAGLIPTIN Inactive MG TABS by mouth MG TABS PHOSPHATE daily AMARYL 1 MG 1 tablet AMARYL 1 MG 180552 GLIMEPIRIDE Inactive ORAL TABS orally ORAL TABS twice daily METFORMIN 2 tablets METFORMIN METFORMIN HCL Inactive HCL 500 MG by mouth HCL 500 MG TB24 twice TB24 daily TROKENDI XR 1 tab by TROKENDI XR TOPIRAMATE Inactive 100 MG ORAL mouth 100 MG ORAL NR07B-BBL daily QO15N-JIN CELEBREX 200 1 tablet CELEBREX 959409 CELECOXIB Inactive MG CAPS by mouth 200 MG CAPS daily with meals AMOXICILLIN 2 po BID AMOXICILLIN 577393 AMOXICILLIN Inactive 500 MG CAPS x 10 days 500 MG CAPS PREDNISONE 2 tabs PREDNISONE 878726 PREDNISONE Inactive 20 MG TAB daily for 20 MG TAB 3 days, 1 tab daily for 3 days, 1/2 tab daily for 2 days NITROFURANTO One NITROFURANT 5040194 NITROFURANTOIN Inactive IN MONOHYD capsule OIN MONOHYD MONOHYD MACRO MACRO 100 MG BID for MACRO 100 CAPS UTI MG CAPS PREDNISONE 2 pills PREDNISONE 431332 PREDNISONE Inactive 20 MG TAB daily x 4 20 MG TAB days AZITHROMYCIN 2 po qd x AZITHROMYCI 8926370 AZITHROMYCIN Inactive 250 MG TABS 1 day, N 250 MG then 1 po TABS qd x 4 days CIPRO 250 MG 1 tablet CIPRO 250 128348 CIPROFLOXACIN Inactive TAB by mouth MG TAB [...] HGBA1C - Chemistry sodium, serum 140 mmol/L 010-578 0768/06/03 potassium, serum 3.9 mmol/L 3.5-5.2 chloride, serum 105 mmol/L 98-107 carbon dioxide, venous blood 29.4 mmol/L 21.0-32.0 blood glucose 124 mg/dL 65-110 calcium, serum 8.9 mg/dL 8.5-10.1 urea nitrogen, blood 14 mg/dL 7-18 creatinine, serum 0.88 mg/dL 0.55-1.30 hemoglobin A1C, blood, as % of total hemoglobin 5.7 % 4.3-6.0 Lab Report: Chlamydia/GC APTIMA/[id number] - Lab chlamydia DNA probe NOT DETECTED NOT DETECTED Lab Report: Chlamydia/GC APTIMA/[id number] - Microbiology Neisseria gonorrhoeae DNA probe NOT DETECTED NOT DETECTED Lab Report: Lipid Panel - Chemistry cholesterol, serum 157 mg/dL 737-180 7806/08/22 triglyceride, serum, fasting 215 mg/dL 30-200 HDL [...] mg/dL Encounters Code Encounter Date Provider Facility CPT-68320 Level 4 Est. Patient Indigo Carlie [facility] - 16:58:20 CDT [place] CPT-98996 Level 3 Est. Patient Yury Benoit MD [facility] 17:20:07 CDT CPT-91551 Level 4 Est. Patient Indigomikayla Sexton SECURITY SITE SUPERVISOR [facility] - 17:02:40 WELT ROUGHER [place] CPT-28872 Level 4 New Patient Yury Benoit MD [facility] 15:17:12 CDT CPT-38494 Level 3 Est. Patient [facility] 13[facility]37:46 CDT [place] CPT-26430 Level 4 Est. [facility] [place] CPT-81416 Level 3 Est. Patient [facility] 08:58:07 CDT PANTRY ATTENDANT CPT-35851 Level 3 Est. Patient Faby Marino [facility] 14:40:56 CDT SECURITY SITE SUPERVISOR CPT-25606 Level 4 Est. Patient [facility] 17:29:53 WELT ROUGHER PANTRY ATTENDANT CPT-15237 Level 4 Est. Patient [facility] 09:51:54 WELT ROUGHER CPT-95698 Level 3 Est. Patient [facility] 18:59:38 CDT CPT-75608 Level 3 Est. Patient Joseph Pineda [facility] 14:42:12 CDT -[facility] CPT-49521 Level 3 Est. Patient Joseph Pineda [facility] 22:18:20 CDT -RHC CPT-72540 Level 3 Est. Patient Joseph Pineda [facility] 16:46:04 CDT -RHC CPT-08824 Level 3 Est. Patient Joseph Pineda [facility] 15:39:53 CDT -RHC CPT-51717 Level 3 Est. Patient Maite Sanchez MD PhD [facility] 13:33:34 CDT -RHC CPT-51849 Level 3 Est. Patient Joseph Pineda [facility] 11:37:08 CDT -RHC CPT-60907 Level 3 Est. Patient Joseph Pineda [facility] 17:13:29 WELT ROUGHER -RHC CPT-41407 Level 3 Est. Patient Joseph Trivedi [facility] 18:42:44 CDT CPT-16635 Level 3 Est. Patient Joseph Trivedi [facility] 16:25:39 CDT CPT-39907 Level 3 Est. Patient Casey Brower [facility] 09:52:45 CDT -RHC CPT-71005 Level 3 Est. Patient Joseph Trivedi [facility] 11:03:29 WELT ROUGHER -RHC CPT-71257 Level 3 Est. Patient Joseph Pineda [facility] 11:03:08 WELT ROUGHER -RHC CPT-24590 Level 3 Est. Patient Joseph Pineda [facility] 14:33:31 CDT -RHC CPT-34131 Level 3 Est. Patient Joseph Pineda [facility] 17:05:02 WELT ROUGHER -RHC CPT-08759 Level 3 Est. Patient Joseph Pineda [facility] 17:48:06 WELT ROUGHER -RHC CPT-62834 Level 3 Est. Patient Joseph Pineda [facility] 14:59:22 WELT ROUGHER -RHC CPT-26469 Level 3 Est. Patient Joseph Pineda [facility] - 21:45:56 WELT ROUGHER [facility] CPT-37766 Level 3 Est. Patient Joseph Pineda [facility] 21:29:50 CDT -RHC CPT-29538 Level 3 Est. Patient Joseph Pineda [facility] 12:41:09 CDT -RHC Procedures Code Procedure Name Date Entry Date Standard Description CPT-92047 Wet Mount - LAB USE ONLY 12:39:03 WELT ROUGHER CPT-17509 Vaginal Culture - LAB USE ONLY 12:39:03 WELT ROUGHER CPT-41463 Urine Culture - LAB USE ONLY 11:52:44 WELT ROUGHER CPT-39440 UA w micro - LAB USE ONLY 11:52:44 WELT ROUGHER CPT-40373 Postop F/U Visit 12:08:35 CDT CPT-95097 Postop F/U Visit 18:20:10 CDT CPT-A4351 Coloplast Female Cath 09:37:10 CDT CPT-36647 Urine Dip (Floor Use Only) 15:17:13 CDT CPT-07872 Dil F ureth int 15:17:13 CDT CPT-22702 Venipuncture Draw Fee 09:19:08 CDT CPT-19196 Lipid - LAB USE ONLY 09:19:07 CDT CPT-JTINJ Asp/Joint Injection 09:26:49 CDT CPT-80334 Chest 2V Frontal and Lat 14:47:43 CDT CPT-JTINJ Asp/Joint Injection 09:51:53 WELT ROUGHER CPT-OV Office Visit 17:39:05 CDT CPT-OV Office Visit 15:19:50 CDT CPT-22326 Sono transvag pelvis non OB uterus ovaries cervix 18:04:34 CDT CPT-63256 Venipuncture Draw Fee 08:55:49 WELT ROUGHER
--- OUTSIDE RECORDS SUMMARY | 2016-11-20 13:14 | External Medical Summary | Clinical Summary ---
:1965 Author Organization [facility] Address [address] [place] [address] Phone Allergies, Adverse Reactions, Alerts Allergy Name [...] OT GENERAL ICD-V70.3 Inactive Maite Sanchez MEDICAL MD PhD EXAMINATION ADMIN PURPOSES OTHER ABNORMAL ICD-790.29 Inactive Maite Sanchez GLUCOSE PhD ACUTE BRONCHITIS ICD-466.0 Inactive Maite Sanchez PhD Medication List Medication Instructions Start Stop Generic NDC Status Provider Patient Date Date Name Instruction VYVANSE 20 1 tablet LISDEXAMFETAMINE 46490726011 Active Joseph Pineda Active MG ORAL daily for DIMESYLATE Farooq DO CAPS binge eating disorder METFORMIN 2 tablet METFORMIN HCL 86978212820 Active Joseph Pineda Active HCL 500 MG daily for Farooq DO TB24 blood sugars LASIX 20 2 tablet by FUROSEMIDE 31122501585 Active Joseph Pineda Active MG TAB mouth daily Farooq DO CELEBREX 1 tablet by CELECOXIB 02230276371 Active Joseph Pineda Active 200 MG mouth daily Farooq DO CAPS with meals PREDNISONE 2 tablets 2 PREDNISONE 05042254827 No Joseph Pineda Active 20 MG TAB today, then 0 Longer Farooq DO 1 tablet 1 Active days 2-4 5 / 0 4 / 3 DIFLUCAN 1 tablet by 2 FLUCONAZOLE 69143604140 No Joseph W Active 100 MG TAB mouth daily 0 Longer Farooq DO x 3 days 1 Active 5 / 0 4 / 3 AMARYL 1 1 tablet GLIMEPIRIDE 24524576862 Active Joseph Pineda Active MG ORAL orally Farooq DO TABS twice daily DIFLUCAN 1 tablet by 2 FLUCONAZOLE 38720406511 No Joseph W Active 100 MG mouth every 0 Longer Farooq DO TABS other day 1 Active for 2 doses 5 / 0 1 / 2 3 ZOFRAN 4 1 po q6hr ONDANSETRON HCL 79612113310 Active Joseph Pineda Active MG TABS PRN Nausea Farooq DO PREDNISONE 2 tabs 2 PREDNISONE 59446848187 No Joseph Pineda Active 20 MG TAB daily for 3 0 Longer Farooq DO days, 1 tab 1 Active daily for 3 4 days, 1/2 / tab daily 1 for 2 days 0 / 2 5 TRAMADOL 1/2 po tid TRAMADOL HCL 51065000206 Active Joseph Pineda Active HCL 50 MG with ES Farooq DO TABS Tylenol prn pain AMOXICILLI 2 po BID x 2 AMOXICILLIN 52552641638 No Maite C Active N 500 MG 10 days 0 Longer Madril CAPS 1 Active PhD 0 / 2 0 LISINOPRIL 1 tablet by 2 LISINOPRIL 58640169563 No Maite C Active 20 MG TABS mouth 0 Longer Madril daily 1 Active PhD 0 / 1 0 POTASSIUM 2 capsule 2 POTASSIUM CHLORIDE 64932170332 No Joseph Pineda Active CHLORIDE by mouth 0 Longer Farooq DO CR 10 MEQ daily 1 Active CPCR 8 2 9 SPIRONOLAC 1 tablet by 2 SPIRONOLACTONE 09299627485 No Joseph Pineda Active TONE 25 MG mouth daily 0 Longer Farooq DO TAB 1 Active 4 / 0 8 / 2 9 METFORMIN 1 tablet 2 METFORMIN HCL 21827389036 No Joseph Pineda Active HCL 500 MG by mouth 0 Longer Farooq DO TABS twice daily 1 Active 4 / 0 8 / 2 9 AMARYL 1 1 tab twice 2 GLIMEPIRIDE 54479294613 No Joseph W Active MG TABS daily 0 Longer Farooq DO 1 Active 4 / 0 8 / 2 9 PHENTERMIN 1 po q am 2 PHENTERMINE HCL 65389333897 No Joseph W Active E HCL 37.5 for wt. 0 Longer Farooq DO MG TABS loss 1 Active 3 / 1 2 / 2 3 PROMETHAZI 1 tab by 2 PROMETHAZINE HCL 95743479541 No Joseph W Active NE HCL 25 mouth every 0 Longer Farooq DO MG TABS 6 hours as 1 Active needed 3 / 0 9 / 0 9 CIPROFLOXA Take one 2 CIPROFLOXACIN HCL 42622640648 No Joseph W Active DELORES HCL (1) tablet 0 Longer Farooq DO 500 MG by mouth 1 Active TABS twice a day 3 / 0 9 / 0 9 ABILIFY 5 one p.o. q. 2 ARIPIPRAZOLE 50145030007 No Joseph W Active MG TABS day 0 Longer Farooq DO 1 Active 3 / 0 9 / 0 9 HYDROCHLOR 2 tabs 2 HYDROCHLOROTHIAZID 90502943296 No Joseph W Active OTHIAZIDE every 0 E Longer Farooq DO 25 MG TABS morning 1 Active 3 / 0 6 / 2 7 ABILIFY 2 1 po q hs 2 ARIPIPRAZOLE 73489822701 No Joseph W Active MG TABS for major 0 Longer Farooq DO depression 1 Active 3 / 0 5 / 0 7 ADIPEX-P 1/2 tab po 2 PHENTERMINE HCL 30379260085 No Casey Active 37.5 MG q am for 0 Longer Leonarda CAPS weight loss 1 Active PA 3 / 0 5 / 0 1 CIPRO 500 1 tablet by 2 CIPROFLOXACIN HCL 27040296768 No Casey Active MG TAB mouth twice 0 Longer Leonarda daily 1 Active PA 3 / 0 5 / 0 1 NECON 1/35 1 po daily 2 NORETHINDRONE-ETH 73541475132 No Casey Active (28) 1-35 0 ESTRADIOL Longer [facility] 1 Active PA TABS 3 / 0 5 / 0 1 TRAMADOL 1 po tid 2 TRAMADOL HCL 16901726576 No Casey Active HCL 50 MG with ES [address] TABS Tylenol 1 Active PA 3 / 0 5 / 0 1 FLUCONAZOL one p.o. q. 2 FLUCONAZOLE 83081306742 No Casey Active E 100 MG day 2 days [address] [facility] TABS 1 Active PA 3 / 0 5 / 0 1 POTASSIUM 1 capsule 2 POTASSIUM CHLORIDE 79578164137 No Casey Active CHLORIDE by mouth 0 Longer Leonarda CR 10 MEQ daily 1 Active PA CPCR 3 / 0 5 / 0 1 IMIPRAMINE Take 6 IMIPRAMINE HCL 20480053199 Active Maite C Active HCL 50 MG tablets by Madril TABS mouth at PhD bedtime DIFLUCAN 1 tablet by 2 FLUCONAZOLE 78092142279 No Joseph W Active 100 MG TAB mouth daily 0 Longer Farooq DO 1 Active 2 / 0 2 / 2 4 METOPROLOL 1/2 tab po METOPROLOL 88504867623 Active Joseph W Active TARTRATE bid TARTRATE Farooq DO 25 MG TABS VERAPAMIL 2 po bid VERAPAMIL HCL 96570936163 Active Joseph W Active HCL CR 120 Farooq DO MG TAB CR PERMETHRIN apply neck 2 PERMETHRIN 18308529512 No Joseph W Active 5 % CREA to toes 0 Longer Farooq DO tonight and 1 Active then rinse 2 off in / morning. 0 repeat at 7 1 days / 2 0 SEROQUEL one p.o. q. 2 QUETIAPINE 47986882613 No Joseph W Active XR 50 MG evening 0 FUMARATE Longer Farooq DO [id number]-[id number] 1 Active 2 / 0 1 / 2 0 TRAMADOL 1-2 tablets 2 TRAMADOL HCL 50006295917 No Joseph W Active HCL 50 MG every 6-8 0 Longer Farooq DO TABS hours as 1 Active needed for 2 pain / 0 1 / 2 0 ALPRAZOLAM one p.o. ALPRAZOLAM 97389077972 Active Joseph W Active 3 MG q.h.s. Farooq DO [id number] ALPRAZOLAM Take 1 2 ALPRAZOLAM 55909243771 No Joseph W Active XR tablet by 0 [id number] Longer Farooq DO [id number]-IOS mouth at 1 Active bedtime 1 / 2 9 DIFLUCAN 1 tablet by 2 FLUCONAZOLE 31228706688 No Joseph W Active 100 MG TAB mouth daily 0 Longer Farooq DO 1 Active 0 / 0 6 AMBIEN 10 1 tab by ZOLPIDEM TARTRATE 76623310722 Active Joseph W Active MG TAB mouth at Farooq DO bedtime as needed for sleep DIFLUCAN 100 1 tablet DIFLUCAN 19760111 FLUCONAZOLE Inactive MG TAB by mouth 100 MG TAB daily ALPRAZOLAM Take 1 ALPRAZOLAM ALPRAZOLAM Inactive XR [id number] tablet by XR [id number] mouth at [id number] bedtime TRAMADOL HCL 1-2 TRAMADOL 809945 TRAMADOL HCL Inactive 50 MG TABS tablets HCL 50 MG every 6-8 TABS hours as needed for pain SEROQUEL XR one p.o. SEROQUEL XR QUETIAPINE Inactive 50 MG q. evening 50 MG FUMARATE [id number] PERMETHRIN 5 apply neck PERMETHRIN 182628 PERMETHRIN Inactive % CREA to toes 5 % CREA tonight and then rinse off in morning. repeat at 7 days DIFLUCAN 100 1 tablet DIFLUCAN 864745 FLUCONAZOLE Inactive MG TAB by mouth 100 MG TAB daily POTASSIUM 1 capsule POTASSIUM POTASSIUM Inactive CHLORIDE CR by mouth CHLORIDE CR CHLORIDE 10 MEQ CPCR daily 10 MEQ CPCR FLUCONAZOLE one p.o. FLUCONAZOLE 19760111 FLUCONAZOLE Inactive 100 MG TABS q. day 2 100 MG TABS days TRAMADOL HCL 1 po tid TRAMADOL 851194 TRAMADOL HCL Inactive 50 MG TABS with ES HCL 50 MG Tylenol TABS NECON 1/35 1 po daily NECON /35 NORETHINDRONE- Inactive (28) 1-35 (28) 1-35 ETH ESTRADIOL MG-MCG TABS MG-MCG TABS CIPRO 500 MG 1 tablet CIPRO 500 498915 CIPROFLOXACIN Inactive TAB by mouth MG TAB HCL twice daily ADIPEX-P 1/2 tab po ADIPEX-P 051250 PHENTERMINE Inactive 37.5 MG CAPS q am for 37.5 MG HCL weight CAPS loss ABILIFY 2 MG 1 po q hs ABILIFY 2 ARIPIPRAZOLE Inactive TABS for major MG TABS depression HYDROCHLOROT 2 tabs HYDROCHLORO 191683 HYDROCHLOROTHI Inactive HIAZIDE 25 every THIAZIDE 25 AZIDE MG TABS morning MG TABS ABILIFY 5 MG one p.o. ABILIFY 5 ARIPIPRAZOLE Inactive TABS q. day MG TABS CIPROFLOXACI Take one CIPROFLOXAC 673612 CIPROFLOXACIN Inactive N HCL 500 MG (1) tablet IN HCL 500 HCL TABS by mouth MG TABS twice a day PROMETHAZINE 1 tab by PROMETHAZIN 483979 PROMETHAZINE Inactive HCL 25 MG mouth E HCL 25 MG HCL TABS every 6 TABS hours as needed PHENTERMINE 1 po q am PHENTERMINE 547500 PHENTERMINE Inactive HCL 37.5 MG for wt. HCL 37.5 MG HCL TABS loss TABS AMARYL 1 MG 1 tab AMARYL 1 MG 036773 GLIMEPIRIDE Inactive TABS twice TABS daily METFORMIN 1 tablet METFORMIN 340218 METFORMIN HCL Inactive HCL 500 MG by mouth HCL 500 MG TABS twice TABS daily SPIRONOLACTO 1 tablet SPIRONOLACT 037718 SPIRONOLACTONE Inactive NE 25 MG TAB by mouth ONE 25 MG daily TAB POTASSIUM 2 capsule POTASSIUM POTASSIUM Inactive CHLORIDE CR by mouth CHLORIDE CR CHLORIDE 10 MEQ CPCR daily 10 MEQ CPCR LISINOPRIL 1 tablet LISINOPRIL 436013 LISINOPRIL Inactive 20 MG TABS by mouth 20 MG TABS daily DIFLUCAN 100 1 tablet DIFLUCAN 041015 FLUCONAZOLE Inactive MG TABS by mouth 100 MG TABS every other day for 2 doses DIFLUCAN 100 1 tablet DIFLUCAN 641438 FLUCONAZOLE Inactive MG TAB by mouth 100 MG TAB daily x 3 days PREDNISONE 2 tablets PREDNISONE 019415 PREDNISONE Inactive 20 MG TAB today, 20 MG TAB then 1 tablet days 2-4 AMOXICILLIN 2 po BID x AMOXICILLIN 032550 AMOXICILLIN Inactive 500 MG CAPS 10 days 500 MG CAPS PREDNISONE 2 tabs PREDNISONE 724075 PREDNISONE Inactive 20 MG TAB daily for 20 MG TAB 3 days, 1 tab daily for 3 days, 1/2 tab daily for 2 days Vital Signs Date Name Value Unit Range Description blood pressure, diastolic - 8462-4 87 mm[Hg] [...] Panel - Chemistry sodium, serum 137 mmol/L 252-125 7319/08/29 potassium, serum 4.1 mmol/L 3.5-5.2 chloride, serum 100 mmol/L 98-107 carbon dioxide, venous blood 31.1 mmol/L 21.0-32.0 blood glucose 138 mg/dL 65-110 calcium, serum 9.2 mg/dL 8.5-10.1 urea nitrogen, blood 9 mg/dL 7-18 creatinine, serum 0.80 mg/dL 0.60-1.30 Lab Report: CBC, Comp. Metabolic Panel, HGBA1C - Chemistry sodium, serum 140 mmol/L 977-095 7564/04/13 potassium, serum 3.9 mmol/L 3.5-5.2 chloride, serum [...] % of total hemoglobin 6.1 % 4.3-6.0 Encounters Code Encounter Date Provider Facility CPT-81526 Level 3 Est. Patient Joseph Trivedi [facility] 22:18:20 CDT -[facility] CPT-77738 Level 3 Est. Patient Joseph Trivedi [facility] 16:46:04 CDT -[facility] CPT-24698 Level 3 Est. Patient Joseph Trivedi [facility] 15:39:53 CDT -[facility] CPT-90815 Level 3 Est. Patient Maite Sanchez MD [facility] 13:33:34 CDT -[facility] CPT-82911 Level 3 Est. Patient Joseph Pineda [facility] 11:37:08 CDT -[facility] CPT-86342 Level 3 Est. Patient Joseph Pineda [facility] 17:13:29 [employer] -[facility] CPT-06331 Level 3 Est. Patient Joseph Pineda [facility] 18:42:44 CDT CPT-04325 Level 3 Est. Patient Joseph Pineda [facility] 16:25:39 CDT CPT-45412 Level 3 Est. Patient Casey ARCHIBALD [facility] 09:52:45 CDT -[facility] CPT-48398 Level 3 Est. Patient Joseph Pineda [facility] 11:03:29 [employer] -[facility] CPT-19471 Level 3 Est. Patient Joseph Pineda [facility] 11:03:08 [employer] -[facility] CPT-75636 Level 3 Est. Patient Alexandria Edwin [facility] 14:33:31 CDT -[facility] CPT-06606 Level 3 Est. Patient Joseph Edwin [facility] 17:05:02 [employer] -[facility] CPT-25764 Level 3 Est. Patient Joseph Pineda [facility] 17:48:06 [employer] -[facility] CPT-91960 Level 3 Est. Patient Joseph Edwin [facility] 14:59:22 [employer] -[facility] CPT-94385 Level 3 Est. Patient Joseph Edwin [facility] - 21:45:56 [employer] [place] [facility] CPT-11689 Level 3 Est. Patient [facility] 21:29:50 CDT -[facility] CPT-86154 Level 3 Est. Patient [facility] 12:41:09 CDT -[facility] Procedures Code Procedure Name Date Entry Date Standard Description CPT-99654 Venipuncture Draw Fee 08:55:49 [employer]
--- OUTSIDE RECORDS SUMMARY | 2016-11-20 13:15 | External Medical Summary | Clinical Summary ---
:1965 Author Organization [facility] Address [address] [address] Phone Allergies, Adverse Reactions, Alerts Allergy Name Reaction Description Start Date Severity Status Provider NKDA Critical Active Indigo Jordanum MEDICAL ASSISTANT OB GYN NKDA Critical No Longer Indigo Yokum MEDICAL ASSISTANT OB GYN Active NKDA Critical Inactive Adrianna Elder Conditions [...] Resolved Indigo Other malaise 05/24 07/02 [facility] MEDICAL ASSISTANT OB GYN and fatigue SLEEP APNEA, 327.23 Active Joseph Pineda Obstructive OBSTRUCTIVE, 06/27 06/27 Farooq DO sleep apnea MILD (adult) (pediatric) OVERWEIGHT 278.02 Inactive Joseph Pineda Overweight 06/28 06/28 Farooq DO Obesity 278.00 Active Indigo Obesity, 06/28 10/18 [facility] MEDICAL ASSISTANT OB GYN unspecified OTH GENERAL V70.3 Resolved Maite Gutierrez Other general MEDICAL Laura ONEAL medical EXAMINATION PhD examination for ADMIN PURPOSES administrative purposes OTHER ABNORMAL 790.29 Resolved Maite C Other abnormal GLUCOSE 05/20 Laura ONEAL glucose PhD ACUTE 466.0 Resolved Maite C Acute BRONCHITIS 09/02 Laura ONEAL bronchitis PhD DEPENDENT 782.3 Resolved Indigo Edema EDEMA, LEGS, 10/29 10/18 [facility]um MEDICAL ASSISTANT OB GYN BILATERAL HYPOKALEMIA, 276.8 Resolved Indigo Hypopotassemia MILD 10/29 07/02 Youm MEDICAL ASSISTANT OB GYN Diabetes, Type 250.00 Inactive Joseph Pineda Diabetes 2 06/27 06/27 Farooq DO mellitus without mention of complication, type II or unspecified type, not stated as uncontrolled Diabetes 250.02 Resolved Indigo Diabetes mellitus, type 06/27 MEDICAL ASSISTANT OB GYN mellitus II, without mention uncontrolled of complication, [...] Resolved Indigo Routine gynecological 12/14 07/02 Yo MEDICAL ASSISTANT OB GYN gynecological examination examination Postmenopausal 627.1 Resolved Indigo Postmenopausal bleeding 12/14 MEDICAL ASSISTANT OB GYN bleeding Screening for V76.51 Resolved Indigo Screening for malignant 12/26 07/02 Yokum MEDICAL ASSISTANT OB GYN malignant neoplasms of neoplasms of colon colon Insomnia, 307.42 Active Indigo 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 MEDICAL ASSISTANT OB GYN disorder of initiating or maintaining sleep Establish care V68.89 Resolved Indigo Encounters for or get 01/16 07/02 Yo MEDICAL ASSISTANT OB GYN other specified acquainted administrative visit purpose Weakness, left 342.90 Resolved Indigo Hemiplegia, side of body 06/20 10/18 [facility]um MEDICAL ASSISTANT OB GYN unspecified, affecting unspecified side TIA 435.9 Active Indigo Unspecified 06/20 07/02 [facility] MEDICAL ASSISTANT OB GYN transient cerebral ischemia Knee pain, 719.46 Active Indigo Pain in joint bilateral 06/20 10/18 Y[facility]um MEDICAL ASSISTANT OB GYN involving lower leg Bronchitis 490 Resolved Indigo Bronchitis, not 07/23 10/18 [facility] MEDICAL ASSISTANT OB GYN specified as acute or chronic Diabetes 357.2 Active Maliheh Polyneuropathy mellitus, 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WAY INSPECTOR 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y Knee pain, 719.46 Active Indigo Pain in joint right 06/20 10/18 Y[facility]um MEDICAL ASSISTANT OB GYN involving lower leg Jesi 112.3 Active Indigo Candidiasis of intertrigo 10/09 10/18 [facility]um MEDICAL ASSISTANT OB GYN skin and nails ABNORMAL VAGINAL ICD-626.9 Inactive Maite Sanchez BLEEDING MD PhD SCABIES ICD-133.0 Inactive Maite Sanchez PhD FATIGUE ICD-780.79 Inactive Indigo Yokum MEDICAL ASSISTANT OB GYN OTH GENERAL ICD-V70.3 Inactive Maite Sanchez MEDICAL PhD EXAMINATION ADMIN PURPOSES OTHER ABNORMAL ICD-790.29 Inactive Maite Sanchez GLUCOSE PhD ACUTE BRONCHITIS ICD-466.0 Inactive Maite Sanchez PhD DEPENDENT EDEMA, ICD-782.3 Inactive Indigo Yokum LEGS, BILATERAL MEDICAL ASSISTANT OB GYN HYPOKALEMIA, MILD ICD-276.8 Inactive Indigo Yokum MEDICAL ASSISTANT OB GYN Diabetes mellitus, ICD-250.02 Inactive Indigo Yokum type II, MEDICAL ASSISTANT OB GYN uncontrolled Sinusitis, ICD-461.1 Inactive Ismael Coyne frontal, acute Amandeep ONEAL Laryngitis, acute ICD-464.00 Inactive Ismael Coyne Amandeep ONEAL Routine ICD-V72.31 Inactive Indigo Yokum gynecological MEDICAL ASSISTANT OB GYN examination Postmenopausal ICD-627.1 Inactive Indigo Yokum 2015 bleeding MEDICAL ASSISTANT OB GYN Screening for ICD-V76.51 Inactive Indigo Yokum 2015 malignant MEDICAL ASSISTANT OB GYN neoplasms of colon Establish care or ICD-V68.89 Inactive Indigo Yokum get acquainted MEDICAL ASSISTANT OB GYN visit Weakness, left ICD-342.90 Inactive Indigo Yokum side of body MEDICAL ASSISTANT OB GYN Bronchitis ICD-490 Inactive Indigo Yokum MEDICAL ASSISTANT OB GYN Medication List Medication Instructions Start Stop Generic NDC Status Provider Patient Date Date Name Instruction NYSTATIN apply to NYSTATIN 25860019447 Active Indigo Active 917509 UNIT/GM rash TID Yokum CREA PRN MEDICAL ASSISTANT OB GYN TROKENDI XR 2 tab daily TOPIRAMATE 60217820390 Active Maliheh Active 100 MG ORAL Ziglari [id number] WAY INSPECTOR METOPROLOL 1 tab po METOPROLOL 03205061720 Active Indigo Active TARTRATE 25 MG bid TARTRATE Yokum TABS MEDICAL ASSISTANT OB GYN AZITHROMYCIN 2 po qd x 1 2 AZITHROMYCIN 31411788623 No Jillina Active 250 MG TABS day, then 1 0 Longer [place] po qd x 4 1 Active MEDICAL ASSISTANT OB GYN days 6 / 0 3 / 2 6 PREDNISONE 20 2 pills 2 PREDNISONE 47720061660 No Jillina Active MG TAB daily x 4 0 Longer [place] days 1 Active MEDICAL ASSISTANT OB GYN 6 / 0 3 / 2 5 PIOGLITAZONE take one a PIOGLITAZONE 24428476058 Active Maliheh Active HCL 30 MG ORAL day HCL Ziglari TABS WAY INSPECTOR JANUVIA 100 MG 1 tablet by 2 SITAGLIPTIN 65692253772 No Indigo Active TABS mouth daily 0 PHOSPHATE Longer Yokum 1 Active MEDICAL ASSISTANT OB GYN 6 / 0 2 / 6 ATORVASTATIN 1 pill by ATORVASTATIN 34250802656 Active Indigo Active CALCIUM 10 MG mouth CALCIUM Yokum TABS nightly, MEDICAL ASSISTANT OB GYN for cholesterol ASPIRIN 81 MG 1 po qd ASPIRIN 08002107338 Active Indigo Active ORAL TABS [facility] MEDICAL ASSISTANT OB GYN NITROFURANTOIN One capsule 2 NITROFURANTOI 92378795495 No Indigo Active MONOHYD MACRO BID for UTI 0 N MONOHYD Longer Yokum 100 MG CAPS 1 MACRO Active MEDICAL ASSISTANT OB GYN 6 / 0 / 3 METFORMIN HCL 2 tablets METFORMIN HCL 40366286495 Active Indigo Active 500 MG TB24 by mouth Yokum twice daily MEDICAL ASSISTANT OB GYN TRAMADOL HCL 1/2 po tid 2 TRAMADOL HCL 80752610895 No Jillina Active 50 MG TABS with ES 0 Longer [place] Tylenol prn 1 Active MEDICAL ASSISTANT OB GYN pain 5 / 0 2 VYVANSE 20 MG 1 tablet 2 LISDEXAMFETAM 18850992406 No Jillina Active ORAL CAPS daily for 0 INE Longer [place] binge 1 DIMESYLATE Active MEDICAL ASSISTANT OB GYN eating 5 disorder / 0 2 LASIX 20 MG 2 tablet by FUROSEMIDE 84973234245 Active Indigo Active TAB mouth daily [facility] MEDICAL ASSISTANT OB GYN CELEBREX 200 1 tablet by CELECOXIB 82216922040 Active Indigo Active MG CAPS mouth daily Yokum with meals MEDICAL ASSISTANT OB GYN PREDNISONE 20 2 tablets 2 PREDNISONE 05030453941 No Joseph W Active MG TAB today, then 0 Longer Farooq DO 1 tablet 1 Active days 2-4 5 / 0 3 DIFLUCAN 100 1 tablet by 2 FLUCONAZOLE 78123005238 No Joseph W Active MG TAB mouth daily 0 Longer Farooq DO x 3 days 1 Active 5 / 0 4 / 3 AMARYL 1 MG 1 tablet GLIMEPIRIDE 72046343489 Active Indigo Active ORAL TABS orally Yokum twice daily MEDICAL ASSISTANT OB GYN DIFLUCAN 100 1 tablet by 2 FLUCONAZOLE 66791144265 No Joseph W Active MG TABS mouth every 0 Longer Farooq DO other day 1 Active for 2 doses 5 / 0 1 / 2 3 ZOFRAN 4 MG 1 po q6hr ONDANSETRON 28721321172 Active Joseph W Active TABS PRN Nausea HCL Farooq DO PREDNISONE 20 2 tabs 2 PREDNISONE 07479189367 No Joseph W Active MG TAB daily for 3 0 Longer Farooq DO days, 1 tab 1 Active daily for 3 4 days, 1/2 / tab daily 1 for 2 days 0 / 2 5 AMOXICILLIN 2 po BID x 2 AMOXICILLIN 16067138132 No Maite C Active 500 MG CAPS 10 days 0 Longer Madril 1 Active PhD 0 / 2 0 LISINOPRIL 20 1 tablet by 2 LISINOPRIL 10957504400 No Maite C Active MG TABS mouth 0 Longer Madril daily 1 Active PhD 0 / 0 POTASSIUM 2 capsule 2 POTASSIUM 30505467741 No Joseph W Active CHLORIDE CR 10 by mouth 0 CHLORIDE Longer Farooq DO MEQ CPCR daily 1 Active 4 / 0 8 / 2 9 SPIRONOLACTONE 1 tablet by 2 SPIRONOLACTON 89201457326 No Joseph W Active 25 MG TAB mouth daily 0 E Longer Farooq DO 1 Active 4 / 0 8 / 2 9 METFORMIN HCL 1 tablet 2 METFORMIN HCL 22292167385 No Joseph W Active 500 MG TABS by mouth 0 Longer Farooq DO twice daily 1 Active 4 / 0 8 / 2 9 AMARYL 1 MG 1 tab twice 2 GLIMEPIRIDE 04265658376 No Joseph W Active TABS daily 0 Longer Farooq DO 1 Active 4 / 0 8 / 2 9 PHENTERMINE 1 po q am 2 PHENTERMINE 32993078199 No Joseph W Active HCL 37.5 MG for wt. 0 HCL Longer Farooq DO TABS loss 1 Active / 2 / 2 3 PROMETHAZINE 1 tab by 2 PROMETHAZINE 61893556213 No Joseph W Active HCL 25 MG TABS mouth every 0 HCL Longer Farooq DO 6 hours as 1 Active needed 3 / 0 9 / 0 9 CIPROFLOXACIN Take one 2 CIPROFLOXACIN 52354341887 No Joseph W Active HCL 500 MG (1) tablet 0 HCL Longer Farooq DO TABS by mouth 1 Active twice a day 3 / 0 9 / 0 9 ABILIFY 5 MG one p.o. q. 2 ARIPIPRAZOLE 95156640015 No Joseph W Active TABS day 0 Longer Farooq DO 1 Active 3 / 0 9 / 0 9 HYDROCHLOROTHI 2 tabs 2 HYDROCHLOROTH 02034123678 No Joseph W Active AZIDE 25 MG every 0 IAZIDE Longer Farooq DO TABS morning 1 Active 3 / 0 6 / 2 7 ABILIFY 2 MG 1 po q hs 2 ARIPIPRAZOLE 39153323108 No Joseph W Active TABS for major 0 Longer Farooq DO depression 1 Active 3 / 0 5 / 0 7 ADIPEX-P 37.5 1/2 tab po 2 PHENTERMINE 68000669895 No Casey Active MG CAPS q am for 0 HCL Longer [place] weight loss 1 Active PA 3 / 0 5 / 0 1 CIPRO 500 MG 1 tablet by 2 CIPROFLOXACIN 47032108847 No Casey Active TAB mouth twice 0 HCL Longer [place] daily 1 Active PA 3 / 0 5 / 0 1 NECON 1/35 1 po daily 2 NORETHINDRONE 86741730839 No Casey Active (28) 1-35 0 -ETH Longer [place] MG-MCG TABS 1 ESTRADIOL Active PA 3 / 0 5 / 0 1 TRAMADOL HCL 1 po tid 2 TRAMADOL HCL 95464110570 No Casey Active 50 MG TABS with ES 0 Longer [place] Tylenol 1 Active PA 3 / 0 5 / 0 1 FLUCONAZOLE one p.o. q. 2 FLUCONAZOLE 88028740940 No Casey Active 100 MG TABS day 2 days 0 Longer [place] 1 Active PA 3 / 0 5 / 0 1 POTASSIUM 1 capsule 2 POTASSIUM 03175974275 No Casey Active CHLORIDE CR 10 by mouth 0 CHLORIDE Longer Leonarda MEQ CPCR daily 1 Active PA 3 / 0 5 / 0 1 IMIPRAMINE HCL Take 6 IMIPRAMINE 44495417811 Active Indigo Active 50 MG TABS tablets by HCL Yokum mouth at MEDICAL ASSISTANT OB GYN bedtime DIFLUCAN 100 1 tablet by 2 FLUCONAZOLE 00859617007 No Joseph W Active MG TAB mouth daily 0 Longer Farooq DO 1 Active 2 / 0 2 / 2 4 VERAPAMIL HCL 2 po bid VERAPAMIL HCL 18550492734 Active Indigo Active CR 120 MG TAB [facility]um CR MEDICAL ASSISTANT OB GYN PERMETHRIN 5 % apply neck 2 PERMETHRIN 53660937779 No Joseph W Active CREA to toes 0 Longer Farooq DO tonight and 1 Active then rinse 2 off in / morning. 0 repeat at 7 1 days / 2 0 SEROQUEL XR 50 one p.o. q. 2 QUETIAPINE 09669227615 No Joseph W Active MG [id number] evening 0 FUMARATE Longer Farooq DO 1 Active 2 / 0 1 / 2 0 TRAMADOL HCL 1-2 tablets 2 TRAMADOL HCL 53422170256 No Joseph W Active 50 MG TABS every 6-8 0 Longer Farooq DO hours as 1 Active needed for 2 pain / 0 1 / 2 0 ALPRAZOLAM 3 one p.o. ALPRAZOLAM 81555626304 Active Indigo Active MG [id number] q.h.s. Yokum MEDICAL ASSISTANT OB GYN ALPRAZOLAM XR Take 1 2 ALPRAZOLAM 48859822423 No Joseph W Active [id number] tablet by 0 [id number] Longer Farooq DO mouth at 1 Active bedtime 1 / 2 9 DIFLUCAN 100 1 tablet by 2 FLUCONAZOLE 58783927131 No Joseph W Active MG TAB mouth daily 0 Longer Farooq DO 1 Active 0 / 0 6 AMBIEN 10 MG 1 tab by ZOLPIDEM 18729068999 Active Indigo Active TAB mouth at TARTRATE Yokum bedtime as MEDICAL ASSISTANT OB GYN needed for sleep DIFLUCAN 100 1 tablet DIFLUCAN 066372 FLUCONAZOLE Inactive MG TAB by mouth 100 MG TAB daily ALPRAZOLAM Take 1 ALPRAZOLAM ALPRAZOLAM Inactive XR [id number] tablet by XR [id number] mouth at [id number] bedtime TRAMADOL HCL 1-2 TRAMADOL 854857 TRAMADOL HCL Inactive 50 MG TABS tablets HCL 50 MG every 6-8 TABS hours as needed for pain SEROQUEL XR one p.o. SEROQUEL XR QUETIAPINE Inactive 50 MG q. 50 MG FUMARATE [id number] evening [id number]-BDZ PERMETHRIN 5 apply PERMETHRIN 861093 PERMETHRIN Inactive % CREA neck to 5 % CREA toes tonight and then rinse off in morning. repeat at 7 days DIFLUCAN 100 1 tablet DIFLUCAN 953344 FLUCONAZOLE Inactive MG TAB by mouth 100 MG TAB daily POTASSIUM 1 capsule POTASSIUM POTASSIUM Inactive CHLORIDE CR by mouth CHLORIDE CR CHLORIDE 10 MEQ CPCR daily 10 MEQ CPCR FLUCONAZOLE one p.o. FLUCONAZOLE 19760111 FLUCONAZOLE Inactive 100 MG TABS q. day 2 100 MG TABS days TRAMADOL HCL 1 po tid TRAMADOL 732031 TRAMADOL HCL Inactive 50 MG TABS with ES HCL 50 MG Tylenol TABS NECON 1/35 1 po NECON 1/35 NORETHINDRONE- Inactive (28) 1-35 daily (28) 1-35 ETH ESTRADIOL MG-MCG TABS MG-MCG TABS CIPRO 500 MG 1 tablet CIPRO 500 064417 CIPROFLOXACIN Inactive TAB by mouth MG TAB HCL twice daily ADIPEX-P 1/2 tab ADIPEX-P 345672 PHENTERMINE Inactive 37.5 MG CAPS po q am 37.5 MG HCL for CAPS weight loss ABILIFY 2 MG 1 po q hs ABILIFY 2 464204 ARIPIPRAZOLE Inactive TABS for major MG TABS depressio n HYDROCHLOROT 2 tabs HYDROCHLORO 799974 HYDROCHLOROTHI Inactive HIAZIDE 25 every THIAZIDE 25 AZIDE MG TABS morning MG TABS ABILIFY 5 MG one p.o. ABILIFY 5 654089 ARIPIPRAZOLE Inactive TABS q. day MG TABS CIPROFLOXACI Take one CIPROFLOXAC 362183 CIPROFLOXACIN Inactive N HCL 500 MG (1) IN HCL 500 HCL TABS tablet by MG TABS mouth twice a day PROMETHAZINE 1 tab by PROMETHAZIN 928149 PROMETHAZINE Inactive HCL 25 MG mouth E HCL 25 MG HCL TABS every 6 TABS hours as needed PHENTERMINE 1 po q am PHENTERMINE 114660 PHENTERMINE Inactive HCL 37.5 MG for wt. HCL 37.5 MG HCL TABS loss TABS AMARYL 1 MG 1 tab AMARYL 1 MG 813274 GLIMEPIRIDE Inactive TABS twice TABS daily METFORMIN 1 tablet METFORMIN 126282 METFORMIN HCL Inactive HCL 500 MG by mouth HCL 500 MG TABS twice TABS daily SPIRONOLACTO 1 tablet SPIRONOLACT 748732 SPIRONOLACTONE Inactive NE 25 MG TAB by mouth ONE 25 MG daily TAB POTASSIUM 2 capsule POTASSIUM POTASSIUM Inactive CHLORIDE CR by mouth CHLORIDE CR CHLORIDE 10 MEQ CPCR daily 10 MEQ CPCR LISINOPRIL 1 tablet LISINOPRIL 392612 LISINOPRIL Inactive 20 MG TABS by mouth 20 MG TABS daily DIFLUCAN 100 1 tablet DIFLUCAN 995912 FLUCONAZOLE Inactive MG TABS by mouth 100 MG TABS every other day for 2 doses DIFLUCAN 100 1 tablet DIFLUCAN 038128 FLUCONAZOLE Inactive MG TAB by mouth 100 MG TAB daily x 3 days PREDNISONE 2 tablets PREDNISONE 455873 PREDNISONE Inactive 20 MG TAB today, 20 MG TAB then 1 tablet days 2-4 VYVANSE 20 1 tablet VYVANSE 20 LISDEXAMFETAMI Inactive MG ORAL CAPS daily for MG ORAL NE DIMESYLATE binge CAPS eating disorder TRAMADOL HCL 1/2 po TRAMADOL 479220 TRAMADOL HCL Inactive 50 MG TABS tid with HCL 50 MG ES TABS Tylenol prn pain JANUVIA 100 1 tablet JANUVIA 100 SITAGLIPTIN Inactive MG TABS by mouth MG TABS PHOSPHATE daily AMOXICILLIN 2 po BID AMOXICILLIN 350807 AMOXICILLIN Inactive 500 MG CAPS x 10 days 500 MG CAPS PREDNISONE 2 tabs PREDNISONE 857218 PREDNISONE Inactive 20 MG TAB daily for 20 MG TAB 3 days, 1 tab daily for 3 days, 1/2 tab daily for 2 days NITROFURANTO One NITROFURANT 6276909 NITROFURANTOIN Inactive IN MONOHYD capsule OIN MONOHYD MONOHYD MACRO MACRO 100 MG BID for MACRO 100 CAPS UTI MG CAPS PREDNISONE 2 pills PREDNISONE 257203 PREDNISONE Inactive 20 MG TAB daily x 4 20 MG TAB days AZITHROMYCIN 2 po qd x AZITHROMYCI 8420670 AZITHROMYCIN Inactive 250 MG TABS 1 day, [...] HGBA1C - Chemistry sodium, serum 140 mmol/L 186-361 8498/06/03 potassium, serum 3.9 mmol/L 3.5-5.2 chloride, serum [...] 198 10^3/MM^3 10*3/mm3 142-424 Lab Report: Chlamydia/GC APTIMA/38968 - Lab chlamydia DNA probe NOT DETECTED NOT DETECTED Lab Report: Chlamydia/GC APTIMA/78225 - Microbiology Neisseria gonorrhoeae DNA probe NOT DETECTED NOT DETECTED Lab Report: Comp. Metabolic Panel, Lipid Panel - Chemistry sodium, serum 136 mmol/L 425-142 0595/01/04 carbon dioxide, venous blood 27.0 mmol/L 21.0-32.0 potassium, serum 4.6 mmol/L 3.5-5.2 chloride, serum 98 mmol/L 98-107 blood glucose 174 mg/dL 65-110 urea nitrogen, blood 12 mg/dL 7-18 creatinine, serum 0.78 mg/dL 0.55-1.30 alanine aminotransferase (SGPT), serum 65 U/L 12-78 aspartate aminotransferase (SGOT), serum 34 U/L 15-37 calcium, serum 8.9 mg/dL 8.5-10.1 bilirubin, serum, total 0.40 mg/dL 0.00-1.00 cholesterol, serum 219 mg/dL 914-484 4413/01/04 triglyceride, serum, fasting 214 mg/dL 30-200 HDL [...] mg/g mg/g{creat} 0-29 sodium, serum 140 mmol/L 134-361 5359/07/21 potassium, serum 3.9 mmol/L 3.5-5.2 chloride, serum [...] mg/dL Encounters Code Encounter Date Provider Facility CPT-58780 Level 4 Est. Patient Indigo Sexton [facility] - 10:01:06 CDT [place] CPT-21155 Level 3 Est. Patient Arnold Berrios [facility] 08:58:[address] CPT-29916 Level 3 Est. Patient Faby Marino [facility] 14:40:56 CDT MEDICAL ASSISTANT OB GYN CPT-59779 Level 4 Est. Patient Arnold Berrios [facility] 17:29:[address] INSPECTOR CPT-68694 Level 4 Est. Patient Indigo Sexton [facility] 09:51:54 COLLISION ESTIMATOR CPT-96748 Level 3 Est. Patient Indigo Sexton [facility] 18:59:38 CDT CPT-01714 Level 3 Est. Patient Joseph Pineda [facility] 14:42:12 CDT -[facility] CPT-22442 Level 3 Est. Patient Joseph Pineda [facility] 22:18:20 CDT -[facility] CPT-98729 Level 3 Est. Patient Joseph Pineda [facility] 16:46:04 CDT -[facility] CPT-83994 Level 3 Est. Patient Saltillo Edwin [facility] 15:39:53 CDT -[facility] CPT-41662 Level 3 Est. Patient Maite Sanchez MD [facility] 13:33:34 CDT -RHC CPT-90391 Level 3 Est. Patient Joseph Pineda [facility] 11:37:08 CDT -[facility] CPT-59653 Level 3 Est. Patient Joseph Pineda [facility] 17:13:29 COLLISION ESTIMATOR -RHC CPT-07808 Level 3 Est. Patient Joseph Pineda [facility] 18:42:44 CDT CPT-48917 Level 3 Est. Patient Joseph Pineda [facility] 16:25:39 CDT CPT-60252 Level 3 Est. Patient Casey ARCHIBALD [facility] 09:52:45 CDT -RHC CPT-76916 Level 3 Est. Patient Joseph Pineda [facility] 11:03:29 COLLISION ESTIMATOR -RHC CPT-24443 Level 3 Est. Patient Joseph Edwin [facility] 11:03:08 COLLISION ESTIMATOR -RHC CPT-03707 Level 3 Est. Patient Joseph Pineda [facility] 14:33:31 CDT -RHC CPT-58530 Level 3 Est. Patient Joseph Pineda [facility] 17:05:02 COLLISION ESTIMATOR -RHC CPT-30951 Level 3 Est. Patient Joseph Pineda [facility] 17:48:06 COLLISION ESTIMATOR -RHC CPT-81467 Level 3 Est. Patient Joseph Pineda [facility] 14:59:22 COLLISION ESTIMATOR -RHC CPT-03092 Level 3 Est. Patient Joseph Pineda [facility] - 21:45:56 COLLISION ESTIMATOR [place] [facility] CPT-45811 Level 3 Est. Patient Joseph Pineda [facility] 21:29:50 CDT -RHC CPT-62354 Level 3 Est. Patient Joseph Pineda [facility] 12:41:09 CDT -RHC Procedures Code Procedure Name Date Entry Date Standard Description CPT-JTINJ Asp/Joint Injection 09:26:49 CDT CPT-28405 Chest 2V Frontal and Lat 14:47:43 CDT CPT-JTINJ Asp/Joint Injection 09:51:53 COLLISION ESTIMATOR CPT-OV Office Visit 17:39:05 CDT CPT-OV Office Visit 15:19:50 CDT CPT-89909 Sono transvag pelvis non OB uterus ovaries cervix 18:04:34 CDT CPT-22056 Venipuncture Draw Fee 08:55:49 COLLISION ESTIMATOR
--- OUTSIDE RECORDS SUMMARY | 2016-11-20 13:15 | External Medical Summary ---
:1965 [facility] Care Team Providers Name Role Phone ARELIS ALLEN INDIGO Primary Care Provider [phone] Summary purpose TRANSITION OF CARE AUTO GENERATION Chief Complaint and Reason for Visit No authorized Reason for Visit (Admitting Diagnosis) is available for this visit. Problem list No authorized problems tracked for continuity of care are available for this visit. Encounters No authorized problems tracked for encounter diagnoses are available for this visit. Medications No medications recorded for this patient visit Allergies, adverse reactions, alerts Allergen Category Ingredient Status Reaction Severity Onset No known No known No known Confirmed or allergies allergies allergies Verified Immunizations No immunizations recorded for this patient visit Relevant diagnostic tests and/or laboratory data RESULTS Radiology Results [id number] CAROTID DUPLEX PACs Image DATE OF EXAM: Jun 23 2015 [id number] CAROTID DUPLEX SONO : RADIOLOGY REPORT DATE OF SERVICE: 06/23/15 HISTORY: Left body weakness. ULTRASOUND NIV CAROTID DUPLEX STUDY SONO 0942 HOURS There is only mild atherosclerotic plaque involving the common carotid bulb bilaterally. This does not cause hemodynamically significant flow disturbance or stenosis. The velocities bilaterally are within normal range. Antegrade flow in vertebral artery bilaterally is demonstrated. IMPRESSION: 1. Minimal atherosclerotic plaque common carotid bulb bilaterally. 2. No hemodynamically significant flow disturbance or stenosis is demonstrated. Glen Rosario DO WP/ashley 06/23/2015 10:07:00 / 06/23/2015 10:14:58 cc:Indigo Sexton APRN This document has been electronically Signed by: On: DATE OF EXAM: Jun 23 2015 [id number] CAROTID DUPLEX SONO : RADIOLOGY REPORT DATE OF SERVICE: 06/23/15 HISTORY: Left body weakness. ULTRASOUND NIV CAROTID DUPLEX STUDY SONO 0942 HOURS There is only mild atherosclerotic plaque involving the common carotid bulb bilaterally. This does not cause hemodynamically significant flow disturbance or stenosis. The velocities bilaterally are within normal range. Antegrade flow in vertebral artery bilaterally is demonstrated. IMPRESSION: 1. Minimal atherosclerotic plaque common carotid bulb bilaterally. 2. No hemodynamically significant flow disturbance or stenosis is demonstrated. Glen Rosario DO WP/nh 06/23/2015 10:07:00 / 06/23/2015 10:14:58 cc:Indigo Sexton APRN This document has been electronically Signed by: GLEN ROSARIO DO On: Jun 23 20151:54P Result Amended on 2015-06-23 at 13:54:06. Previous status was SC. History of procedures No procedures recorded for this patient visit. Functional status No functional or cognitive status observations are available for this visit. Vital signs No authorized vital signs are available for this visit. Social history No Social History or smoking status observations were recorded for this visit. ( Unknown if ever smoked.) Treatment Plan No treatment plan text is available for this visit. Hospital discharge instructions No discharge instruction text is available for this visit.
--- OUTSIDE RECORDS SUMMARY | 2016-11-20 13:15 | External Medical Summary | Clinical Summary ---
:1965 Author Organization [facility] Address [address] [place] [address] Phone Allergies, Adverse Reactions, Alerts Allergy Name [...] 133.0 Resolved Maite Gutierrez Scabies 06/23 Laura ONELA PhD HYPERTENSION 401.9 Active Joseph Pineda Unspecified 05/24 Farooq DO essential hypertension FATIGUE 780.79 Active Joseph Pineda Other malaise 05/24 05/24 Farooq DO and fatigue SLEEP APNEA, 327.23 Active Joseph Pineda Obstructive OBSTRUCTIVE, 06/27 06/27 Farooq DO sleep apnea MILD (adult) (pediatric) OVERWEIGHT 278.02 Active Joseph Pineda Overweight 06/28 06/28 Farooq DO OTH GENERAL V70.3 Resolved Maite Gutierrez Other general MEDICAL Laura OENAL medical EXAMINATION PhD examination for ADMIN PURPOSES [...] Routine gynecological 12/14 12/14 [place] gynecological examination [employer] examination Postmenopausal 627.1 Active Jillina Postmenopausal bleeding 12/14 12/14 [place] bleeding [employer] ABNORMAL VAGINAL ICD-626.9 Inactive Maite Sanchez BLEEDING PhD SCABIES ICD-133.0 Inactive Maite Sanchez PhD OT GENERAL ICD-V70.3 Inactive Maite Sanchez MEDICAL PhD EXAMINATION ADMIN PURPOSES OTHER ABNORMAL ICD-790.29 Inactive Maite Sanchez GLUCOSE PhD ACUTE BRONCHITIS ICD-466.0 Inactive Maite Sanchez PhD Medication List Medication Instructions Start Stop Generic NDC Status Provider Patient Date Date Name Instruction TRAMADOL / po TRAMADOL [id number] No Jillina Active HCL 50 MG tid with HCL Longer [place]ell TABS ES Active [employer] Tylenol prn pain VYVANSE 20 1 tablet LISDEXAMF 62662206251 No Jillina Active MG ORAL daily for ETAMINE Longer [place] CAPS binge DIMESYLAT Active [employer] eating E disorder METFORMIN 2 tablet METFORMIN 98318622693 Active Joseph W Active HCL 500 MG daily for HCL Farooq DO TB24 blood sugars LASIX 20 2 tablet FUROSEMID 77168697411 Active Joseph Pineda Active MG TAB by mouth E Farooq DO daily CELEBREX 1 tablet CELECOXIB 24651071708 Active Joseph W Active 200 MG by mouth Farooq DO CAPS daily with meals PREDNISONE 2 tablets PREDNISON 72497382916 No Joseph W Active 20 MG TAB today, E Longer Farooq DO then 1 Active tablet days 2-4 DIFLUCAN 1 tablet FLUCONAZO 92753300323 No Joseph W Active 100 MG TAB by mouth LE Longer Farooq DO daily x 3 Active days AMARYL 1 1 tablet GLIMEPIRI 13604129651 Active Joseph Pineda Active MG ORAL orally DE Farooq DO TABS twice daily DIFLUCAN 1 tablet FLUCONAZO 12844050681 No Joseph Pineda Active 100 MG by mouth LE Longer Farooq DO TABS every Active other day for 2 doses ZOFRAN 4 1 po q6hr ONDANSETR 43971249285 Active Bam Pineda Active MG TABS PRN ON HCL Dillow Nausea PREDNISONE 2 tabs PREDNISON 04976511125 No Joseph Pineda Active 20 MG TAB daily for E Longer Farooq DO 3 days, 1 Active tab daily for 3 days, 1/2 tab daily for 2 days AMOXICILLI 2 po BID AMOXICILL 92828302740 No Maite C Active N 500 MG x 10 days IN Longer Madril CAPS Active PhD LISINOPRIL 1 tablet LISINOPRI 28217727836 No Maite C Active 20 MG TABS by mouth L Longer Madril daily Active PhD POTASSIUM 2 capsule POTASSIUM 94521603012 No Joseph Pineda Active CHLORIDE by mouth CHLORIDE Longer Farooq DO CR 10 MEQ daily Active CPCR SPIRONOLAC 1 tablet SPIRONOLA 86548303677 No Joseph W Active TONE 25 MG by mouth CTONE Longer Farooq DO TAB daily Active METFORMIN 1 tablet METFORMIN 17177476539 No Joseph W Active HCL 500 MG by mouth HCL Longer Farooq DO TABS twice Active daily AMARYL 1 1 tab GLIMEPIRI 21937166579 No Joseph W Active MG TABS twice DE Longer Farooq DO daily Active PHENTERMIN 1 po q am PHENTERMI 80365368793 No Joseph W Active E HCL 37.5 for wt. NE HCL Longer Farooq DO MG TABS loss Active PROMETHAZI 1 tab by PROMETHAZ 13550487356 No Jsoeph W Active NE HCL 25 mouth INE HCL Longer Farooq DO MG TABS every 6 Active hours as needed CIPROFLOXA Take one CIPROFLOX 49273101568 No Joseph W Active DELORES HCL (1) ACIN HCL Longer Farooq DO 500 MG tablet by Active TABS mouth twice a day ABILIFY 5 one p.o. ARIPIPRAZ 56860054880 No Joseph W Active MG TABS q. day OLE Longer Farooq DO Active HYDROCHLOR 2 tabs HYDROCHLO 65452500813 No Joseph W Active OTHIAZIDE every ROTHIAZID Longer Farooq DO 25 MG TABS morning E Active ABILIFY 2 1 po q hs ARIPIPRAZ 26509613228 No Joseph W Active MG TABS for major OLE Longer Farooq DO depressio Active n ADIPEX-P 1/2 tab PHENTERMI 31499858505 No Casey Active 37.5 MG po q am NE HCL Longer [place]on CAPS for Active PA weight loss CIPRO 500 1 tablet CIPROFLOX 10794304126 No Casey Active MG TAB by mouth ACIN HCL Longer [place] twice Active PA daily NECON 1/35 1 po NORETHIND 28487386408 No Casey Active (28) 1-35 daily LINDA-ETH Longer Leonarda MG-MCG ESTRADIOL Active PA TABS TRAMADOL 1 po tid TRAMADOL 68647078160 No Casey Active HCL 50 MG with ES HCL Longer [place]on TABS Tylenol Active PA FLUCONAZOL one p.o. FLUCONAZO 24981713053 No Casey Active E 100 MG q. day 2 LE Longer Leonarda TABS days Active PA POTASSIUM 1 capsule POTASSIUM 67888032597 No Casey Active CHLORIDE by mouth CHLORIDE Longer Leonarda CR 10 MEQ daily Active PA CPCR IMIPRAMINE Take 6 IMIPRAMIN 55586514903 Active Joseph Pineda Active HCL 50 MG tablets E HCL Farooq DO TABS by mouth at bedtime DIFLUCAN 1 tablet FLUCONAZO 86112163906 No Joseph W Active 100 MG TAB by mouth LE Longer Farooq DO daily Active METOPROLOL 1/2 tab METOPROLO 43346578724 Active Joseph W Active TARTRATE po bid L Farooq DO 25 MG TABS TARTRATE VERAPAMIL 2 po bid VERAPAMIL 10342925601 Active Joseph Pineda Active HCL CR 120 HCL Farooq DO MG TAB CR PERMETHRIN apply PERMETHRI 79777407851 No Joseph Pineda Active 5 % CREA neck to N Longer Farooq DO toes Active tonight and then rinse off in morning. repeat at 7 days SEROQUEL one p.o. QUETIAPIN 62849076594 No Joseph W Active XR 50 MG q. E Longer Farooq DO [id number] evening FUMARATE Active TRAMADOL 1-2 TRAMADOL 59405881532 No Joseph W Active HCL 50 MG tablets HCL Longer Farooq DO TABS every 6-8 Active hours as needed for pain ALPRAZOLAM one p.o. ALPRAZOLA 82918629474 Active Joseph W Active 3 MG q.h.s. M Farooq DO [id number] ALPRAZOLAM Take 1 ALPRAZOLA 70193662837 No Joseph W Active XR tablet by M Longer Farooq DO [id number] mouth at [id number] Active bedtime DIFLUCAN 1 tablet FLUCONAZO 24316321426 No Joseph W Active 100 MG TAB by mouth MAGNO Longer Farooq DO daily Active AMBIEN 10 1 tab by ZOLPIDEM 63093471958 Active Joseph W Active MG TAB mouth at TARTRATE Farooq DO bedtime as needed for sleep DIFLUCAN 100 1 tablet DIFLUCAN 383616 FLUCONAZOLE Inactive MG TAB by mouth 100 MG TAB daily ALPRAZOLAM Take 1 ALPRAZOLAM ALPRAZOLAM Inactive XR [id number] tablet by XR [id number] mouth at [id number] bedtime TRAMADOL HCL 1-2 TRAMADOL 607398 TRAMADOL HCL Inactive 50 MG TABS tablets HCL 50 MG every 6-8 TABS hours as needed for pain SEROQUEL XR one p.o. SEROQUEL XR QUETIAPINE Inactive 50 MG q. evening 50 MG FUMARATE [id number] PERMETHRIN 5 apply neck PERMETHRIN 690705 PERMETHRIN Inactive % CREA to toes 5 % CREA tonight and then rinse off in morning. repeat at 7 days DIFLUCAN 100 1 tablet DIFLUCAN 659833 FLUCONAZOLE Inactive MG TAB by mouth 100 MG TAB daily POTASSIUM 1 capsule POTASSIUM POTASSIUM Inactive CHLORIDE CR by mouth CHLORIDE CR CHLORIDE 10 MEQ CPCR daily 10 MEQ CPCR FLUCONAZOLE one p.o. FLUCONAZOLE 19760111 FLUCONAZOLE Inactive 100 MG TABS q. day 2 100 MG TABS days TRAMADOL HCL 1 po tid TRAMADOL 152662 TRAMADOL HCL Inactive 50 MG TABS with ES HCL 50 MG Tylenol TABS NECON 1/35 1 po daily NECON 1/35 NORETHINDRONE- Inactive (28) 1-35 (28) 1-35 ETH ESTRADIOL MG-MCG TABS MG-MCG TABS CIPRO 500 MG 1 tablet CIPRO 500 285431 CIPROFLOXACIN Inactive TAB by mouth MG TAB HCL twice daily ADIPEX-P 1/2 tab po ADIPEX-P 430651 PHENTERMINE Inactive 37.5 MG CAPS q am for 37.5 MG HCL weight CAPS loss ABILIFY 2 MG 1 po q hs ABILIFY 2 289075 ARIPIPRAZOLE Inactive TABS for major MG TABS depression HYDROCHLOROT 2 tabs HYDROCHLORO 898825 HYDROCHLOROTHI Inactive HIAZIDE 25 every THIAZIDE 25 AZIDE MG TABS morning MG TABS ABILIFY 5 MG one p.o. ABILIFY 5 475678 ARIPIPRAZOLE Inactive TABS q. day MG TABS CIPROFLOXACI Take one CIPROFLOXAC 078374 CIPROFLOXACIN Inactive N HCL 500 MG (1) tablet IN HCL 500 HCL TABS by mouth MG TABS twice a day PROMETHAZINE 1 tab by PROMETHAZIN 368552 PROMETHAZINE Inactive HCL 25 MG mouth E HCL 25 MG HCL TABS every 6 TABS hours as needed PHENTERMINE 1 po q am PHENTERMINE 649465 PHENTERMINE Inactive HCL 37.5 MG for wt. HCL 37.5 MG HCL TABS loss TABS AMARYL 1 MG 1 tab AMARYL 1 MG 679208 GLIMEPIRIDE Inactive TABS twice TABS daily METFORMIN 1 tablet METFORMIN 328119 METFORMIN HCL Inactive HCL 500 MG by mouth HCL 500 MG TABS twice TABS daily SPIRONOLACTO 1 tablet SPIRONOLACT 024254 SPIRONOLACTONE Inactive NE 25 MG TAB by mouth ONE 25 MG daily TAB POTASSIUM 2 capsule POTASSIUM POTASSIUM Inactive CHLORIDE CR by mouth CHLORIDE CR CHLORIDE 10 MEQ CPCR daily 10 MEQ CPCR LISINOPRIL 1 tablet LISINOPRIL 934739 LISINOPRIL Inactive 20 MG TABS by mouth 20 MG TABS daily DIFLUCAN 100 1 tablet DIFLUCAN 457156 FLUCONAZOLE Inactive MG TABS by mouth 100 MG TABS every other day for 2 doses DIFLUCAN 100 1 tablet DIFLUCAN 750086 FLUCONAZOLE Inactive MG TAB by mouth 100 MG TAB daily x 3 days PREDNISONE 2 tablets PREDNISONE 882252 PREDNISONE Inactive 20 MG TAB today, 20 MG TAB then 1 tablet days 2-4 VYVANSE 20 1 tablet VYVANSE 20 LISDEXAMFETAMI Inactive MG ORAL CAPS daily for MG ORAL NE DIMESYLATE binge CAPS eating disorder TRAMADOL HCL 1/2 po tid TRAMADOL 099447 TRAMADOL HCL Inactive 50 MG TABS with ES HCL 50 MG Tylenol TABS prn pain AMOXICILLIN 2 po BID x AMOXICILLIN 777311 AMOXICILLIN Inactive 500 MG CAPS 10 days 500 MG CAPS PREDNISONE 2 tabs PREDNISONE 888215 PREDNISONE Inactive 20 MG TAB daily for [...] Panel - Chemistry sodium, serum 137 mmol/L 292-656 2466/08/29 potassium, serum 4.1 mmol/L 3.5-5.2 chloride, serum 100 mmol/L 98-107 carbon dioxide, venous blood 31.1 mmol/L 21.0-32.0 blood glucose 138 mg/dL 65-110 calcium, serum 9.2 mg/dL 8.5-10.1 urea nitrogen, blood 9 mg/dL 7-18 creatinine, serum 0.80 mg/dL 0.60-1.30 Lab Report: CBC, Comp. Metabolic Panel, HGBA1C - Chemistry sodium, serum 140 mmol/L 610-737 9127/04/13 potassium, serum 3.9 mmol/L 3.5-5.2 chloride, serum [...] 219 10^3/MM^3 10*3/mm3 142-424 Lab Report: Chlamydia/GC APTIMA/[id number] - Lab chlamydia DNA probe NOT DETECTED NOT DETECTED Lab Report: Chlamydia/GC APTIMA/[id number] - Microbiology Neisseria gonorrhoeae DNA probe NOT [...] mg/g mg/g{creat} 0-29 sodium, serum 140 mmol/L 135-987 2421/07/21 potassium, serum 3.9 mmol/L 3.5-5.2 chloride, serum [...] 142-424 Encounters Code Encounter Date Provider Facility CPT-26988 Level 3 Est. Patient Joseph Pineda [facility] 14:42:12 CDT -[facility] CPT-35498 Level 3 Est. Patient Joseph Pineda [facility] 22:18:20 [facility]T [facility] CPT-51732 Level 3 Est. Patient Joseph Pineda [facility] 16:46:04 [facility] CPT-32040 Level 3 Est. Patient Joseph Pineda [facility] 15:39:53 CD[facility] -[facility] CPT-27120 Level 3 Est. Patient Maite Sanchez MD [facility] 13:33:34 CD[facility] -[facility] CPT-98462 Level 3 Est. Patient Joseph Pineda [facility] 11:37:08 CDT -[facility] CPT-68931 Level 3 Est. Patient Joseph Pineda [facility] 17:13:29 [facility] CPT-34567 Level 3 Est. Patient Joseph Pineda [facility] 18:42:44 CDT CPT-12844 Level 3 Est. Patient Joseph Edwin [facility] 16:25:39 CDT CPT-69282 Level 3 Est. Patient Casey [facility] 09:52:45 CD[facility] -[facility] CPT-90783 Level 3 Est. Patient Joseph Edwin [facility] 11:03:29 [facility] CPT-22181 Level 3 Est. Patient Joseph Pineda [facility] 11:03:08 [facility] CPT-40296 Level 3 Est. Patient Joseph Pineda [facility] 14:33:31 CD[facility] -[facility] CPT-60084 Level 3 Est. Patient Joseph Pineda [facility] 17:05:02 [facility] CPT-52173 Level 3 Est. Patient Joseph Edwin [facility] 17:48:06 [facility] CPT-88211 Level 3 Est. Patient Joseph Pineda [facility] 14:59:22 [facility] CPT-62591 Level 3 Est. Patient Joseph Edwin [facility] - 21:45:56 [facility] CPT-37231 Level 3 Est. Patient Joseph Pineda [facility] 21:29:50 [facility] CPT-14975 Level 3 Est. Patient Joseph Pineda [facility] 12:41:09 [facility] Procedures Code Procedure Name Date Entry Date Standard Description CPT-63822 Sono transvag pelvis non OB uterus ovaries cervix 18:04:34 T CPT-65471 Venipuncture Draw Fee 08:55:49 [facility] CL[facility]
--- OUTSIDE RECORDS SUMMARY | 2016-11-20 13:16 | External Medical Summary | Clinical Summary ---
:1965 Author Organization [facility] Address [address] [place] [address] Phone Allergies, Adverse Reactions, Alerts Allergy Name Reaction Description Start Date Severity Status Provider NKDA Critical No Longer Indigo Yokum RADIO OPERATOR Active NKDA Critical Inactive Adrianna Elder [...] Resolved Indigo Other malaise 05/24 07/02 Yokum RADIO OPERATOR and fatigue SLEEP APNEA, 327.23 Active [...] Resolved Indigo Hypopotassemia MILD 10/29 07/02 Yo RADIO OPERATOR Diabetes, Type 250.00 Inactive Joseph Pineda Diabetes 2 06/27 06/27 Farooq DO mellitus without mention of complication, type II or unspecified type, not stated as uncontrolled Diabetes 250.02 Active Indigo Diabetes mellitus, type 06/27um RADIO OPERATOR mellitus II, without mention uncontrolled of complication, type II or unspecified type, uncontrolled Health V70.0 Active Joseph Pinead Routine general screening 01/17 01/17 Farooq DO medical examination at a health care facility Sinusitis, 461.1 Resolved Ismael Coyne Acute frontal frontal, acute 012/26 [place] sinusitis Laryngitis, 464.00 Resolved Ismael Coyne Acute acute 012/26 [place] laryngitis without mention of obstruction Binge eating 307.51 Active Joseph Pineda Bulimia nervosa disorder 08/15 08/15 Farooq DO Routine V72.31 Resolved Indigo Routine gynecological 12/14 07/02 Yo RADIO OPERATOR gynecological examination examination Postmenopausal 627.1 Resolved Indigo Postmenopausal bleeding 12/14 07/02 Youm RADIO OPERATOR bleeding Screening for V76.51 Resolved Indigo Screening for malignant 12/26 07/02 Yokum RADIO OPERATOR malignant neoplasms of neoplasms of colon colon Insomnia, 307.42 Active Indigo 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 Establish care V68.89 Resolved Indigo Encounters for or get 01/16 07/02 Yo RADIO OPERATOR other specified acquainted administrative visit purpose Weakness, left 342.90 Active Indigo Hemiplegia, side of body 06/20 06/20 Yokum RADIO OPERATOR unspecified, affecting unspecified side TIA 435.9 Active Indigo Unspecified 06/20 07/02 Yokum RADIO OPERATOR transient cerebral ischemia Knee pain, 719.46 Active Indigo Pain in joint bilateral 06/20 07/02 Yokum RADIO OPERATOR involving lower leg ABNORMAL VAGINAL ICD-626.9 Inactive Maite Sanchez BLEEDING PhD SCABIES ICD-133.0 Inactive Maite Sanchez PhD FATIGUE ICD-780.79 Inactive Indigo Yokum RADIO OPERATOR OTH GENERAL ICD-V70.3 Inactive Maite Sanchez MEDICAL MD PhD EXAMINATION ADMIN PURPOSES OTHER ABNORMAL ICD-790.29 Inactive Maite Sanchez GLUCOSE PhD ACUTE BRONCHITIS ICD-466.0 Inactive Maite Sanchez PhD HYPOKALEMIA, MILD ICD-276.8 Inactive Indigo Yokum RADIO OPERATOR Sinusitis, ICD-461.1 Inactive Ismael Coyne frontal, acute Amandeep ONEAL Laryngitis, acute ICD-464.00 Inactive Ismael Coyne Amandeep ONEAL Routine ICD-V72.31 Inactive Indigo Yokum gynecological RADIO OPERATOR examination Postmenopausal ICD-627.1 Inactive Indigo Yokum 2015 bleeding RADIO OPERATOR Screening for ICD-V76.51 Inactive Indigo Yokum 2015 malignant RADIO OPERATOR neoplasms of colon Establish care or ICD-V68.89 Inactive Indigo Yokum get acquainted RADIO OPERATOR visit Medication List Medication Instructions Start Stop Generic NDC Status Provider Patient Date Date Name Instruction PIOGLITAZONE take PIOGLITAZONE 02547868316 Active Maliheh Active HCL 30 MG ORAL one a HCL Ziglari 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 JANUVIA 100 MG 1 2 SITAGLIPTIN 98389510363 No Indigo Active TABS tablet 0 PHOSPHATE Longer Yokum by 1 Active RADIO OPERATOR mouth 6 daily / 0 2 / 6 ATORVASTATIN 1 pill ATORVASTATIN 38692913972 Active Indigo Active CALCIUM 10 MG by CALCIUM Yokum TABS mouth RADIO OPERATOR nightly , for cholest diana TROKENDI XR 100 1 tab TOPIRAMATE 88225990530 Active Indigo Active MG ORAL daily Yokum [id number] RADIO OPERATOR ASPIRIN 81 MG 1 po qd ASPIRIN 30438715332 Active Indigo Active ORAL TABS Yokum RADIO OPERATOR NITROFURANTOIN One 2 NITROFURANTOIN 19478961809 No Indigo Active MONOHYD MACRO capsule 0 MONOHYD MACRO Longer Yokum 100 MG CAPS BID for 1 Active RADIO OPERATOR UTI 6 / 0 3 METFORMIN HCL 2 METFORMIN HCL 16615082812 Active Indigo Active 500 MG TB24 tablets Yokum by RADIO OPERATOR mouth twice daily TRAMADOL HCL 50 1/2 po 2 TRAMADOL HCL 47247583473 No Jillina Active MG TABS tid 0 Longer Frazell with ES 1 Active RADIO OPERATOR Tylenol 5 prn / pain 0 / 2 VYVANSE 20 MG 1 2 LISDEXAMFETAMIN 44059988345 No Jillina Active ORAL CAPS tablet 0 E DIMESYLATE Longer Frazell daily 1 Active RADIO OPERATOR for 5 binge / eating 0 disorde 8 r / 1 2 LASIX 20 MG TAB 2 FUROSEMIDE 21237784963 Active Joseph W Active tablet Farooq DO by mouth daily CELEBREX 200 MG 1 CELECOXIB 80902134696 Active Joseph W Active CAPS tablet Farooq DO by mouth daily with meals PREDNISONE 20 2 2 PREDNISONE 63275419029 No Joseph W Active MG TAB tablets 0 Longer Farooq DO today, 1 Active then 1 5 tablet / days 0 2-4 4 3 DIFLUCAN 100 MG 1 2 FLUCONAZOLE 77059181335 No Joseph W Active TAB tablet 0 Longer Farooq DO by 1 Active mouth 5 daily x / 3 days 0 3 AMARYL 1 MG 1 GLIMEPIRIDE 57753204014 Active Joseph W Active ORAL TABS tablet Farooq DO orally twice daily DIFLUCAN 100 MG 1 2 FLUCONAZOLE 30370538798 No Joseph W Active TABS tablet 0 Longer Farooq DO by 1 Active mouth 5 every / other 0 day for 1 2 doses / 2 3 ZOFRAN 4 MG 1 po ONDANSETRON HCL 91332339048 Active Joseph W Active TABS q6hr Farooq DO PRN Nausea PREDNISONE 20 2 tabs 2 PREDNISONE 43665344943 No Joseph W Active MG TAB daily 0 Longer Farooq DO for 3 1 Active days, 1 4 tab / daily 1 for 3 0 days, / 1/2 tab 2 daily 5 for 2 days AMOXICILLIN 500 2 po 2 AMOXICILLIN 36034673334 No Maite C Active MG CAPS BID x 0 Longer Madril MD 10 days 1 Active PhD 4 / 1 0 / 2 0 LISINOPRIL 20 1 2 LISINOPRIL 36210052800 No Maite C Active MG TABS tablet 0 Longer Madril MD by 1 Active PhD mouth 4 daily / 1 0 / 1 0 POTASSIUM 2 2 POTASSIUM 27368112739 No Joseph W Active CHLORIDE CR 10 capsule 0 CHLORIDE Longer Farooq DO MEQ CPCR by 1 Active mouth 4 daily / 0 8 / 2 9 SPIRONOLACTONE 1 2 SPIRONOLACTONE 73383864931 No Joseph W Active 25 MG TAB tablet 0 Longer Farooq DO by 1 Active mouth 4 daily / 0 8 / 2 9 METFORMIN HCL 1 2 METFORMIN HCL 32452906436 No Joseph W Active 500 MG TABS tablet 0 Longer Farooq DO by 1 Active mouth 4 twice / daily 0 8 / 2 9 AMARYL 1 MG 1 tab 2 GLIMEPIRIDE 76299336157 No Joseph W Active TABS twice 0 Longer Farooq DO daily 1 Active 4 / 0 8 / 2 9 PHENTERMINE HCL 1 po q 2 PHENTERMINE HCL 81446854289 No Joseph W Active 37.5 MG TABS am for 0 Longer Farooq DO wt. 1 Active loss 3 / 1 2 / 2 3 PROMETHAZINE 1 tab 2 PROMETHAZINE 36344110233 No Joseph W Active HCL 25 MG TABS by 0 HCL Longer Farooq DO mouth 1 Active every 6 3 hours / as 0 needed 9 / 0 9 CIPROFLOXACIN Take 2 CIPROFLOXACIN 27305117315 No Joseph W Active HCL 500 MG TABS one (1) 0 HCL Longer Farooq DO tablet 1 Active by 3 mouth / twice a 0 day 9 / 0 9 ABILIFY 5 MG one 2 ARIPIPRAZOLE 52220708611 No Joseph W Active TABS p.o. q. 0 Longer [facility] day 1 Active 3 / 0 9 / 0 9 HYDROCHLOROTHIA 2 tabs 2 HYDROCHLOROTHIA 89545887694 No Joseph W Active ZIDE 25 MG TABS every 0 ZIDE Longer [facility] morning 1 Active 3 / 0 6 / 2 7 ABILIFY 2 MG 1 po q 2 ARIPIPRAZOLE 46539001923 No Joseph W Active TABS hs for 0 Longer [facility] major 1 Active depress 3 ion / 0 5 / 0 7 ADIPEX-P 37.5 1/2 tab 2 PHENTERMINE HCL 73263139616 No Casey Active MG CAPS po q am 0 Longer Crowley PA for 1 Active weight 3 loss / 0 5 / 0 1 CIPRO 500 MG 1 2 CIPROFLOXACIN 86600522078 No Casey Active TAB tablet 0 HCL Longer Crowley PA by 1 Active mouth 3 twice / daily 0 5 / 0 1 NECON 1/35 (28) 1 po 2 NORETHINDRONE-E 97668798300 No Casey Active 1-35 MG-MCG daily 0 TH ESTRADIOL Longer Crowley PA TABS 1 Active 3 / 0 5 / 0 1 TRAMADOL HCL 50 1 po 2 TRAMADOL HCL 63560124825 No Casey Active MG TABS tid 0 Longer Crowley PA with ES 1 Active Tylenol 3 / 0 5 / 0 1 FLUCONAZOLE 100 one 2 FLUCONAZOLE 91282613016 No Casey Active MG TABS p.o. q. 0 Longer [facility] day 2 1 Active days 3 / 0 5 / 0 1 POTASSIUM 1 2 POTASSIUM 45595458199 No Casey Active CHLORIDE CR 10 capsule 0 CHLORIDE Longer Crowley PA MEQ CPCR by 1 Active mouth 3 daily / 0 5 / 0 1 IMIPRAMINE HCL Take 6 IMIPRAMINE HCL 52275365086 Active Joseph W Active 50 MG TABS tablets Farooq DO by mouth at bedtime DIFLUCAN 100 MG 1 2 FLUCONAZOLE 11685136305 No Joseph W Active TAB tablet 0 Longer Farooq DO by 1 Active mouth 2 daily / 0 2 / 2 4 METOPROLOL 1/2 tab METOPROLOL 67152932463 Active Joseph W Active TARTRATE 25 MG po bid TARTRATE Farooq DO TABS VERAPAMIL HCL 2 po VERAPAMIL HCL 76888805907 Active Joseph W Active CR 120 MG TAB bid Farooq DO CR PERMETHRIN 5 % apply 2 PERMETHRIN 69397820483 No Joseph W Active CREA neck to 0 Longer Farooq DO toes 1 Active tonight 2 and / then 0 rinse 1 off in / morning 2 . 0 repeat at 7 days SEROQUEL XR 50 one 2 QUETIAPINE 35135126090 No Joseph W Active MG [id number] p.o. q. 0 FUMARATE Longer Farooq DO evening 1 Active 2 / 0 1 / 2 0 TRAMADOL HCL 50 1-2 2 TRAMADOL HCL 40194908159 No Joseph W Active MG TABS tablets 0 Longer Farooq DO every 1 Active 6-8 2 hours / as 0 needed 1 for / pain 2 0 ALPRAZOLAM 3 MG one ALPRAZOLAM 64859114556 Active Indigo Active [id number] p.o. Yokum q.h.s. RADIO OPERATOR ALPRAZOLAM XR Take 1 2 ALPRAZOLAM 55309330163 No Joseph W Active [id number] tablet 0 [id number] Longer Farooq DO by 1 Active mouth 1 at / bedtime 1 1 / 2 9 DIFLUCAN 100 MG 1 2 FLUCONAZOLE 92896180305 No Joseph W Active TAB tablet 0 Longer Farooq DO by 1 Active mouth 1 daily / 1 0 / 0 6 AMBIEN 10 MG 1 tab ZOLPIDEM 03600366919 Active Afsaneh Active TAB by TARTRATE Gericke, mouth MA at bedtime as needed for sleep DIFLUCAN 100 1 tablet DIFLUCAN 685296 FLUCONAZOLE Inactive MG TAB by mouth 100 MG TAB daily ALPRAZOLAM Take 1 ALPRAZOLAM ALPRAZOLAM Inactive XR [id number] tablet by XR [id number] mouth at [id number] bedtime TRAMADOL HCL 1-2 TRAMADOL 767388 TRAMADOL HCL Inactive 50 MG TABS tablets HCL 50 MG every 6-8 TABS hours as needed for pain SEROQUEL XR one p.o. SEROQUEL XR QUETIAPINE Inactive 50 MG q. 50 MG FUMARATE [id number] evening [id number] PERMETHRIN 5 apply PERMETHRIN 175785 PERMETHRIN Inactive % CREA neck to 5 % CREA toes tonight and then rinse off in morning. repeat at 7 days DIFLUCAN 100 1 tablet DIFLUCAN 954919 FLUCONAZOLE Inactive MG TAB by mouth 100 MG TAB daily POTASSIUM 1 capsule POTASSIUM POTASSIUM Inactive CHLORIDE CR by mouth CHLORIDE CR CHLORIDE 10 MEQ CPCR daily 10 MEQ CPCR FLUCONAZOLE one p.o. FLUCONAZOLE 19760111 FLUCONAZOLE Inactive 100 MG TABS q. day 2 100 MG TABS days TRAMADOL HCL 1 po tid TRAMADOL 512054 TRAMADOL HCL Inactive 50 MG TABS with ES HCL 50 MG Tylenol TABS NECON 1/35 1 po NECON 1/35 NORETHINDRONE- Inactive (28) 1-35 daily (28) 1-35 ETH ESTRADIOL MG-MCG TABS MG-MCG TABS CIPRO 500 MG 1 tablet CIPRO 500 195281 CIPROFLOXACIN Inactive TAB by mouth MG TAB HCL twice daily ADIPEX-P 1/2 tab ADIPEX-P 519154 PHENTERMINE Inactive 37.5 MG CAPS po q am 37.5 MG HCL for CAPS weight loss ABILIFY 2 MG 1 po q hs ABILIFY 2 355752 ARIPIPRAZOLE Inactive TABS for major MG TABS depressio n HYDROCHLOROT 2 tabs HYDROCHLORO 428693 HYDROCHLOROTHI Inactive HIAZIDE 25 every THIAZIDE 25 AZIDE MG TABS morning MG TABS ABILIFY 5 MG one p.o. ABILIFY 5 023487 ARIPIPRAZOLE Inactive TABS q. day MG TABS CIPROFLOXACI Take one CIPROFLOXAC 335712 CIPROFLOXACIN Inactive N HCL 500 MG (1) IN HCL 500 HCL TABS tablet by MG TABS mouth twice a day PROMETHAZINE 1 tab by PROMETHAZIN 907048 PROMETHAZINE Inactive HCL 25 MG mouth E HCL 25 MG HCL TABS every 6 TABS hours as needed PHENTERMINE 1 po q am PHENTERMINE 692642 PHENTERMINE Inactive HCL 37.5 MG for wt. HCL 37.5 MG HCL TABS loss TABS AMARYL 1 MG 1 tab AMARYL 1 MG 763913 GLIMEPIRIDE Inactive TABS twice TABS daily METFORMIN 1 tablet METFORMIN 589031 METFORMIN HCL Inactive HCL 500 MG by mouth HCL 500 MG TABS twice TABS daily SPIRONOLACTO 1 tablet SPIRONOLACT 836075 SPIRONOLACTONE Inactive NE 25 MG TAB by mouth ONE 25 MG daily TAB POTASSIUM 2 capsule POTASSIUM POTASSIUM Inactive CHLORIDE CR by mouth CHLORIDE CR CHLORIDE 10 MEQ CPCR daily 10 MEQ CPCR LISINOPRIL 1 tablet LISINOPRIL 403195 LISINOPRIL Inactive 20 MG TABS by mouth 20 MG TABS daily DIFLUCAN 100 1 tablet DIFLUCAN 406539 FLUCONAZOLE Inactive MG TABS by mouth 100 MG TABS every other day for 2 doses DIFLUCAN 100 1 tablet DIFLUCAN 003528 FLUCONAZOLE Inactive MG TAB by mouth 100 MG TAB daily x 3 days PREDNISONE 2 tablets PREDNISONE 954814 PREDNISONE Inactive 20 MG TAB today, 20 MG TAB then 1 tablet days 2-4 VYVANSE 20 1 tablet VYVANSE 20 LISDEXAMFETAMI Inactive MG ORAL CAPS daily for MG ORAL NE DIMESYLATE binge CAPS eating disorder TRAMADOL HCL 1/2 po TRAMADOL 733032 TRAMADOL HCL Inactive 50 MG TABS tid with HCL 50 MG ES TABS Tylenol prn pain JANUVIA 100 1 tablet JANUVIA 100 SITAGLIPTIN Inactive MG TABS by mouth MG TABS PHOSPHATE daily AMOXICILLIN 2 po BID AMOXICILLIN 043326 AMOXICILLIN Inactive 500 MG CAPS x 10 days 500 MG CAPS PREDNISONE 2 tabs PREDNISONE 496196 PREDNISONE Inactive 20 MG TAB daily for 20 MG TAB 3 days, 1 tab daily for 3 days, 1/2 tab daily for 2 days NITROFURANTO One NITROFURANT 7866825 NITROFURANTOIN Inactive IN MONOHYD capsule OIN MONOHYD [...] HGBA1C - Chemistry sodium, serum 140 mmol/L 443-874 5932/04/13 potassium, serum 3.9 mmol/L 3.5-5.2 chloride, serum [...] 198 10^3/MM^3 10*3/mm3 142-424 Lab Report: Chlamydia/GC APTIMA/[id number] - Lab chlamydia DNA probe NOT DETECTED NOT DETECTED Lab Report: Chlamydia/GC APTIMA/[id number] - Microbiology Neisseria gonorrhoeae DNA probe NOT DETECTED NOT DETECTED Lab Report: Comp. Metabolic Panel, Lipid Panel - Chemistry sodium, serum 136 mmol/L 551-092 6153/01/04 carbon dioxide, venous blood 27.0 mmol/L 21.0-32.0 potassium, serum 4.6 mmol/L 3.5-5.2 chloride, serum 98 mmol/L 98-107 blood glucose 174 mg/dL 65-110 urea nitrogen, blood 12 mg/dL 7-18 creatinine, serum 0.78 mg/dL 0.55-1.30 alanine aminotransferase (SGPT), serum 65 U/L 12-78 aspartate aminotransferase (SGOT), serum 34 U/L 15-37 calcium, serum 8.9 mg/dL 8.5-10.1 bilirubin, serum, total 0.40 mg/dL 0.00-1.00 cholesterol, serum 219 mg/dL 392-688 5566/01/04 triglyceride, serum, fasting 214 mg/dL 30-200 HDL [...] mg/g mg/g{creat} 0-29 sodium, serum 140 mmol/L 768-232 9926/07/21 potassium, serum 3.9 mmol/L 3.5-5.2 chloride, serum [...] Yes Encounters Code Encounter Date Provider Facility CPT-16718 Level 4 Est. 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 Patient [facility] 09:51:54 PASTE PLANT SUPERVISOR CPT-12481 Level 3 Est. Patient [facility] 18:59:38 CDT CPT-19763 Level 3 Est. Patient Joseph Edwin [facility] 14:42:12 CDT -RHC CPT-08395 Level 3 Est. Patient Joseph Pineda [facility] 22:18:20 CDT -RHC CPT-81698 Level 3 Est. Patient Joseph Edwin [facility] 16:46:04 CDT -RHC CPT-18139 Level 3 Est. Patient Joseph Pineda [facility] 15:39:53 CDT -RHC CPT-20317 Level 3 Est. Patient Maite Sanchez MD [facility] 13:33:34 CDT -RHC CPT-24239 Level 3 Est. Patient Joseph W [facility] 11:37:08 CDT -RHC CPT-95413 Level 3 Est. Patient Joseph Pineda [facility] 17:13:29 PASTE PLANT SUPERVISOR -RHC CPT-72254 Level 3 Est. Patient Joseph Edwin [facility] 18:42:44 CDT CPT-92424 Level 3 Est. Patient Reddell Edwin [facility] 16:25:39 CDT CPT-59359 Level 3 Est. Patient Casey Garzaner [facility] 09:52:45 CDT -RHC CPT-65414 Level 3 Est. Patient Joseph [facility] 11:03:29 PASTE PLANT SUPERVISOR -RHC CPT-02929 Level 3 Est. Patient [facility] 11:03:08 PASTE PLANT SUPERVISOR -RHC CPT-56326 Level 3 Est. Patient [facility] 14:33:31 CDT -RHC CPT-53337 Level 3 Est. Patient [facility] 17:05:02 PASTE PLANT SUPERVISOR -RHC CPT-35825 Level 3 Est. Patient [facility] 17:48:06 PASTE PLANT SUPERVISOR -RHC CPT-34549 Level 3 Est. Patient [facility] 14:59:22 PASTE PLANT SUPERVISOR -RHC CPT-12913 Level 3 Est. Patient [facility] - 21:45:56 PASTE PLANT SUPERVISOR Jose RHC CPT-74099 Level 3 Est. Patient [facility] 21:29:50 CDT -RHC CPT-14131 Level 3 Est. Patient [facility] 12:41:09 CDT -RHC Procedures Code Procedure Name Date Entry Date Standard Description CPT-JTINJ Asp/Joint Injection 09:51:53 PASTE PLANT SUPERVISOR CPT-OV Office Visit 17:39:05 CDT CPT-OV Office Visit 15:19:50 CDT CPT-29331 Sono transvag pelvis non OB uterus ovaries cervix 18:04:34 T CPT-87970 Venipuncture Draw Fee 08:55:49 PASTE PLANT SUPERVISOR
--- OUTSIDE RECORDS SUMMARY | 2016-11-20 13:16 | External Medical Summary | Clinical Summary ---
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 NKDA Critical Active Indigo Yokum FREIGHT ASSOCIATE NKDA Critical No Longer Indigo Yokum FREIGHT ASSOCIATE Active NKDA Critical Inactive Adrianna Elder Conditions [...] Resolved Indigo Other malaise 05/24 07/02 Yokum FREIGHT ASSOCIATE and fatigue SLEEP APNEA, 327.23 Active Joseph Pineda Obstructive OBSTRUCTIVE, 06/27 06/27 Farooq DO sleep apnea MILD (adult) (pediatric) OVERWEIGHT 278.02 Inactive Joseph Pineda Overweight 06/28 06/28 Farooq DO Obesity 278.00 Active Indigo Obesity, 06/28 10/18 Yokum FREIGHT ASSOCIATE unspecified OTH GENERAL V70.3 Resolved Maite Gutierrez Other general MEDICAL Laura ONEAL medical EXAMINATION PhD examination for ADMIN administrative PURPOSES purposes OTHER 790.29 Resolved Maite C Other abnormal ABNORMAL 05/20 Laura ONEAL glucose GLUCOSE PhD ACUTE 466.0 Resolved Maite Gutierrez Acute bronchitis BRONCHITIS 09/02 Laura ONEAL PhD DEPENDENT 782.3 Resolved Indigo Edema EDEMA, LEGS, 10/29 10/18 Yokum FREIGHT ASSOCIATE BILATERAL HYPOKALEMIA, 276.8 Resolved Indigo Hypopotassemia MILD 10/29 07/02 Yokum FREIGHT ASSOCIATE Diabetes, 250.00 Inactive Joseph Pineda Diabetes Type 2 06/27 06/27 Farooq DO mellitus without mention of complication, type II or unspecified type, not stated as uncontrolled Diabetes 250.02 Resolved Indigo Diabetes mellitus, 06/27 10/18 Yokum FREIGHT ASSOCIATE mellitus without type II, mention of uncontrolled [...] Resolved Indigo Routine gynecological 12/14 07/02 Yokum FREIGHT ASSOCIATE gynecological examination examination Postmenopausa 627.1 Resolved Indigo Postmenopausal l bleeding 12/14 07/02 Yokum FREIGHT ASSOCIATE bleeding Screening for V76.51 Resolved Indigo Screening for malignant 12/26 07/02 Yokum FREIGHT ASSOCIATE malignant neoplasms of neoplasms of colon colon Insomnia, 307.42 Active Indigo 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 ASSOCIATE disorder of initiating or maintaining sleep Establish V68.89 Resolved Indigo Encounters for care or get 01/16 07/02 Yokum FREIGHT ASSOCIATE other specified acquainted administrative visit purpose Weakness, 342.90 Resolved Indigo Hemiplegia, left side of 06/20 10/18 Yokum FREIGHT ASSOCIATE unspecified, body affecting unspecified side TIA 435.9 Active Indigo Unspecified 06/20 07/02 Yokum FREIGHT ASSOCIATE transient cerebral ischemia Knee pain, 719.46 Active Indigo Pain in joint bilateral 06/20 10/18 Yokum FREIGHT ASSOCIATE involving lower leg Bronchitis 490 Resolved Indigo Bronchitis, not 07/23 10/18 Yokum FREIGHT ASSOCIATE specified as acute or chronic Diabetes 357.2 Active Maliheh Polyneuropathy mellitus, 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 CASE TRIM 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 y Knee pain, 719.46 Active Indigo Pain in joint right 06/20 10/18 Yokum FREIGHT ASSOCIATE involving lower leg Jesi 112.3 Active Indigo Candidiasis of intertrigo 10/09 10/18 Yokum FREIGHT ASSOCIATE skin and nails Hyperlipidemi 272.4 Active Anne Other and a 12/24 12/24 Neil unspecified RMA hyperlipidemia Incontinence, 788.33 Active Indigo Mixed mixed, 12/24 12/24 Yok FREIGHT ASSOCIATE incontinence urge/stress (female) (male) Female stress 625.6 Active Yury Monaco Stress incontinence 01/03 01/03 Cy patel MD female Vaginal odor 623.8 Active Gloria Other specified 05/28 05/28 Naff FIBERGLASS AUTO BODY REPAIRER noninflammatory disorders of vagina Urinary tract 599.0 Active Indigo Urinary tract infection 05/28 05/28 Yokum FREIGHT ASSOCIATE infection, site not specified SCABIES ICD-133.0 Inactive Maite Sanchez PhD FATIGUE ICD-780.79 Inactive Indigo Yokum FREIGHT ASSOCIATE OTH GENERAL ICD-V70.3 Inactive Maite Gutierrez Laura MEDICAL PhD EXAMINATION ADMIN PURPOSES OTHER ABNORMAL ICD-790.29 Inactive Maite Sanchez GLUCOSE PhD ACUTE BRONCHITIS ICD-466.0 Inactive Maite Sanchez PhD DEPENDENT EDEMA, ICD-782.3 Inactive Indigo Yokum LEGS, BILATERAL FREIGHT ASSOCIATE HYPOKALEMIA, MILD ICD-276.8 Inactive Indigo Yokum FREIGHT ASSOCIATE Diabetes mellitus, ICD-250.02 Inactive Indigo Yokum type II, FREIGHT ASSOCIATE uncontrolled ABNORMAL VAGINAL ICD-626.9 Inactive Maite Sanchez BLEEDING PhD Routine ICD-V72.31 Inactive Indigo Yokum gynecological FREIGHT ASSOCIATE examination Postmenopausal ICD-627.1 Inactive Inidgo Yokum 2015 bleeding FREIGHT ASSOCIATE Screening for ICD-V76.51 Inactive Indigo Yokum 2015 malignant FREIGHT ASSOCIATE neoplasms of colon Establish care or ICD-V68.89 Inactive Indigo Yokum get acquainted FREIGHT ASSOCIATE visit Weakness, left ICD-342.90 Inactive Indigo Yokum side of body FREIGHT ASSOCIATE Bronchitis ICD-490 Inactive Indigo Yokum FREIGHT ASSOCIATE Sinusitis, ICD-461.1 Inactive Ismael Coyne frontal, acute Amandeep ONEAL Laryngitis, acute ICD-464.00 Lucy Coyne Amandeep ONEAL Medication List Medication Instructions Start Stop Generic NDC Status Provider Patient Date Date Name Instruction VESGARETHRE 5 1 tablet SOLIFENACIN 32992259364 Active J Carlos Enrique Active MG TABS daily SUCCINATE Cy ONEAL CIPRO 250 MG 1 tablet 2 CIPROFLOXACIN 48181228402 No Indigo Active TAB by mouth 0 HCL Longer Yokum twice 1 Active FREIGHT ASSOCIATE daily 7 / 0 1 7 METFORMIN 2 tablets 2 METFORMIN HCL 67622722055 No Indigo Active HCL 500 MG by mouth 0 Longer Yokum TB24 twice 1 Active FREIGHT ASSOCIATE daily 2 AMARYL 1 MG 1 tablet 2 GLIMEPIRIDE 83225251195 No Indigo Active ORAL TABS orally 0 Longer Yokum twice 1 Active FREIGHT ASSOCIATE daily 2 NYSTATIN apply to NYSTATIN 43150412209 Active Indigo Active 996439 rash TID Yokum UNIT/GM CREA PRN FREIGHT ASSOCIATE TROKENDI XR 2 tab TOPIRAMATE 48617500328 Active Maliheh Active 100 MG ORAL daily Ziglari [id number] 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 ADJUSTER LEADER CASE TRIM METOPROLOL 1 tab po METOPROLOL 64250479552 Active Indigo Active TARTRATE 25 bid TARTRATE Yokum MG TABS FREIGHT ASSOCIATE AZITHROMYCIN 2 po qd x 2 AZITHROMYCIN 50394384336 No Jillina Active 250 MG TABS 1 day, 0 Longer Frazell then 1 po 1 Active FREIGHT ASSOCIATE qd x 4 6 days / 0 3 / 2 6 PREDNISONE 2 pills 2 PREDNISONE 00785558349 No Jillina Active 20 MG TAB daily x 4 0 Longer [place]ell days 1 Active FREIGHT ASSOCIATE 6 / 0 3 / 2 5 PIOGLITAZONE take one a PIOGLITAZONE 44781859125 Active Maliheh Active HCL 30 MG day HCL Ziglari ORAL TABS MACHINE ADJUSTER LEADER CASE TRIM JANUVIA 100 1 tablet 2 SITAGLIPTIN 24484244190 No Indigo Active MG TABS by mouth 0 PHOSPHATE Longer Yokum daily 1 Active FREIGHT ASSOCIATE 6 / 0 2 / 1 6 ATORVASTATIN 1 pill by ATORVASTATIN 11556163588 Active Indigo Active CALCIUM 10 mouth CALCIUM Yokum MG TABS nightly, FREIGHT ASSOCIATE for cholestero l ASPIRIN 81 1 po qd ASPIRIN 73589427645 Active Indigo Active MG ORAL TABS Yokum FREIGHT ASSOCIATE NITROFURANTO One 2 NITROFURANTOIN 53770197851 No Indigo Active IN MONOHYD capsule 0 MONOHYD MACRO Longer Yokum MACRO 100 MG BID for 1 Active FREIGHT ASSOCIATE CAPS UTI 6 / 0 2 / 3 TRAMADOL HCL 1/2 po tid 2 TRAMADOL HCL 54222496037 No Jillina Active 50 MG TABS with ES 0 Longer [place] Tylenol 1 Active FREIGHT ASSOCIATE prn pain 5 / 0 2 VYVANSE 20 1 tablet 2 LISDEXAMFETAMIN 21859213501 No Jillina Active MG ORAL CAPS daily for 0 E DIMESYLATE Longer [place] binge 1 Active FREIGHT ASSOCIATE eating 5 disorder / 0 2 LASIX 20 MG 2 tablet FUROSEMIDE 05511190724 Active Indigo Active TAB by mouth Yokum daily FREIGHT ASSOCIATE CELEBREX 200 1 tablet CELECOXIB 36667705715 Active Indigo Active MG CAPS by mouth Yokum daily with FREIGHT ASSOCIATE meals PREDNISONE 2 tablets 2 PREDNISONE 14527925996 No Joseph W Active 20 MG TAB today, 0 Longer Farooq DO then 1 1 Active tablet 5 days 2-4 / 0 4 3 DIFLUCAN 100 1 tablet 2 FLUCONAZOLE 33184843941 No Joseph W Active MG TAB by mouth 0 Longer Farooq DO daily x 3 1 Active days 5 / 0 4 / 1 3 DIFLUCAN 100 1 tablet 2 FLUCONAZOLE 45134341189 No Joseph W Active MG TABS by mouth 0 Longer Farooq DO every 1 Active other day 5 for 2 / doses 0 1 / 2 3 ZOFRAN 4 MG 1 po q6hr ONDANSETRON HCL 24150450546 Active Joseph W Active TABS PRN Nausea Farooq DO PREDNISONE 2 tabs 2 PREDNISONE 36077246115 No Joseph W Active 20 MG TAB daily for 0 Longer Farooq DO 3 days, 1 1 Active tab daily 4 for 3 / days, 1/2 1 tab daily 0 for 2 days / 2 5 AMOXICILLIN 2 po BID x 2 AMOXICILLIN 01868617501 No Maite C Active 500 MG CAPS 10 days 0 Longer Madril MD 1 Active PhD 4 0 / 2 0 LISINOPRIL 1 tablet 2 LISINOPRIL 76849497913 No Maite Gutierrez Active 20 MG TABS by mouth 0 Longer Laura ONEAL daily 1 Active PhD 4 0 / 1 0 POTASSIUM 2 capsule 2 POTASSIUM 15637090935 No Joseph W Active CHLORIDE CR by mouth 0 CHLORIDE Longer Farooq DO 10 MEQ CPCR daily 1 Active 4 0 8 / 2 9 SPIRONOLACTO 1 tablet 2 SPIRONOLACTONE 97526155465 No Joseph W Active NE 25 MG TAB by mouth 0 Longer Farooq DO daily 1 Active 4 0 8 / 2 9 METFORMIN 1 tablet 2 METFORMIN HCL 76076815692 No Joseph W Active HCL 500 MG by mouth 0 Longer Farooq DO TABS twice 1 Active daily 4 8 / 2 9 AMARYL 1 MG 1 tab 2 GLIMEPIRIDE 21680942346 No Joseph W Active TABS twice 0 Longer Farooq DO daily 1 Active 4 / 0 8 2 9 PHENTERMINE 1 po q am 2 PHENTERMINE HCL 72475365207 No Joseph W Active HCL 37.5 MG for wt. 0 Longer Farooq DO TABS loss 1 Active 3 / 2 / 2 3 PROMETHAZINE 1 tab by 2 PROMETHAZINE 36638141842 No Joseph W Active HCL 25 MG mouth 0 HCL Longer Farooq DO TABS every 6 1 Active hours as 3 needed / 0 9 / 0 9 CIPROFLOXACI Take one 2 CIPROFLOXACIN 57461804198 No Joseph W Active N HCL 500 MG (1) tablet 0 HCL Longer Farooq DO TABS by mouth 1 Active twice a 3 day / 0 9 / 0 9 ABILIFY 5 MG one p.o. 2 ARIPIPRAZOLE 24980283489 No Joseph W Active TABS q. day 0 Longer Farooq DO 1 Active 3 / 0 9 / 0 9 HYDROCHLOROT 2 tabs 2 HYDROCHLOROTHIA 30659103327 No Joseph W Active HIAZIDE 25 every 0 ZIDE Longer Farooq DO MG TABS morning 1 Active 3 / 0 6 / 2 7 ABILIFY 2 MG 1 po q hs 2 ARIPIPRAZOLE 15863615501 No Joseph W Active TABS for major 0 Longer [facility] depression 1 Active 3 / 0 5 / 0 7 ADIPEX-P 1/2 tab po 2 PHENTERMINE HCL 56518551752 No Casey Active 37.5 MG CAPS q am for 0 Longer [facility] weight 1 Active loss 3 / 0 5 / 0 1 CIPRO 500 MG 1 tablet 2 CIPROFLOXACIN 73097317841 No Casey Active TAB by mouth 0 HCL Longer [facility] twice 1 Active daily 3 / 0 5 / 0 1 NECON 1 po daily 2 NORETHINDRONE-E 77595356539 No Casey Active () 1- 0 ESTRADIOL Longer [facility] MG-MCG TABS 1 Active 3 / 0 5 / 0 1 TRAMADOL HCL 1 po tid 2 TRAMADOL HCL 71588648772 No Casey Active 50 MG TABS with ES 0 Longer [facility] Tylenol 1 Active 3 / 0 5 / 0 1 FLUCONAZOLE one p.o. 2 FLUCONAZOLE 29691336818 No Casey Active 100 MG TABS q. day 2 0 Longer [facility] days 1 Active 3 / 0 5 / 0 1 POTASSIUM 1 capsule 2 POTASSIUM 86021165863 No Casey Active CHLORIDE CR by mouth 0 CHLORIDE Longer [facility] 10 MEQ CPCR daily 1 Active 3 / 0 5 / 0 1 IMIPRAMINE Take 6 IMIPRAMINE HCL 43984861337 Active Indigo Active HCL 50 MG tablets by Yokum TABS mouth at FREIGHT ASSOCIATE bedtime DIFLUCAN 100 1 tablet 2 FLUCONAZOLE 90014976174 No Joseph W Active MG TAB by mouth 0 Longer [facility] daily 1 Active 2 / 0 2 / 2 4 VERAPAMIL 2 po bid VERAPAMIL HCL 90045700709 Active Indigo Active HCL CR 120 Yokum MG TAB CR FREIGHT ASSOCIATE PERMETHRIN 5 apply neck 2 PERMETHRIN 21855607770 No Joseph W Active % CREA to toes 0 Longer [facility] tonight 1 Active and then 2 rinse off / in 0 morning. 1 repeat at / 7 days 2 0 SEROQUEL XR one p.o. 2 QUETIAPINE 70640473906 No Joseph W Active 50 MG q. evening 0 FUMARATE Longer Farooq DO [id number] 1 Active 2 / 0 1 / 2 0 TRAMADOL HCL 1-2 2 TRAMADOL HCL 99133067532 No Joseph W Active 50 MG TABS tablets 0 Longer Farooq DO every 6-8 1 Active hours as 2 needed for / pain 0 1 / 2 0 ALPRAZOLAM 3 one p.o. ALPRAZOLAM 44200516058 Active Indigo Active MG [id number] q.h.s. Yokum FREIGHT ASSOCIATE ALPRAZOLAM Take 1 2 ALPRAZOLAM 13535189941 No Joseph W Active XR [id number] tablet by 0 [id number] Longer Farooq DO mouth at 1 Active bedtime 1 / 9 DIFLUCAN 100 1 tablet 2 FLUCONAZOLE 65344962194 No Joseph W Active MG TAB by mouth 0 Longer Farooq DO daily 1 Active 0 / 0 6 AMBIEN 10 MG 1 tab by ZOLPIDEM 95587283582 Active Indigo Active TAB mouth at TARTRATE Yokum bedtime as FREIGHT ASSOCIATE needed for sleep DIFLUCAN 100 1 tablet DIFLUCAN 306460 FLUCONAZOLE Inactive MG TAB by mouth 100 MG TAB daily ALPRAZOLAM Take 1 ALPRAZOLAM ALPRAZOLAM Inactive XR [id number] tablet by XR [id number] mouth at [id number] bedtime TRAMADOL HCL 1-2 TRAMADOL 157444 TRAMADOL HCL Inactive 50 MG TABS tablets HCL 50 MG every 6-8 TABS hours as needed for pain SEROQUEL XR one p.o. SEROQUEL XR QUETIAPINE Inactive 50 MG q. 50 MG FUMARATE [id number] evening [id number] PERMETHRIN 5 apply PERMETHRIN 371186 PERMETHRIN Inactive % CREA neck to 5 % CREA toes tonight and then rinse off in morning. repeat at 7 days DIFLUCAN 100 1 tablet DIFLUCAN 759054 FLUCONAZOLE Inactive MG TAB by mouth 100 MG TAB daily POTASSIUM 1 capsule POTASSIUM POTASSIUM Inactive CHLORIDE CR by mouth CHLORIDE CR CHLORIDE 10 MEQ CPCR daily 10 MEQ CPCR FLUCONAZOLE one p.o. FLUCONAZOLE 302711 FLUCONAZOLE Inactive 100 MG TABS q. day 2 100 MG TABS days TRAMADOL HCL 1 po tid TRAMADOL 138687 TRAMADOL HCL Inactive 50 MG TABS with ES HCL 50 MG Tylenol TABS NECON 1 po NECON NORETHINDRONE- Inactive (28) 1-35 daily () - ETH ESTRADIOL MG-MCG TABS MG-MCG TABS CIPRO 500 MG 1 tablet CIPRO 500 168434 CIPROFLOXACIN Inactive TAB by mouth MG TAB HCL twice daily ADIPEX-P 1/2 tab ADIPEX-P 146907 PHENTERMINE Inactive 37.5 MG CAPS po q am 37.5 MG HCL for CAPS weight loss ABILIFY 2 MG 1 po q hs ABILIFY 2 670916 ARIPIPRAZOLE Inactive TABS for major MG TABS depressio n HYDROCHLOROT 2 tabs HYDROCHLORO 842007 HYDROCHLOROTHI Inactive HIAZIDE 25 every THIAZIDE 25 AZIDE MG TABS morning MG TABS ABILIFY 5 MG one p.o. ABILIFY 5 887413 ARIPIPRAZOLE Inactive TABS q. day MG TABS CIPROFLOXACI Take one CIPROFLOXAC 977688 CIPROFLOXACIN Inactive N HCL 500 MG (1) IN HCL 500 HCL TABS tablet by MG TABS mouth twice a day PROMETHAZINE 1 tab by PROMETHAZIN 859989 PROMETHAZINE Inactive HCL 25 MG mouth E HCL 25 MG HCL TABS every 6 TABS hours as needed PHENTERMINE 1 po q am PHENTERMINE 042556 PHENTERMINE Inactive HCL 37.5 MG for wt. HCL 37.5 MG HCL TABS loss TABS AMARYL 1 MG 1 tab AMARYL 1 MG 19910808 GLIMEPIRIDE Inactive TABS twice TABS daily METFORMIN 1 tablet METFORMIN 316547 METFORMIN HCL Inactive HCL 500 MG by mouth HCL 500 MG TABS twice TABS daily SPIRONOLACTO 1 tablet SPIRONOLACT 629038 SPIRONOLACTONE Inactive NE 25 MG TAB by mouth ONE 25 MG daily TAB POTASSIUM 2 capsule POTASSIUM POTASSIUM Inactive CHLORIDE CR by mouth CHLORIDE CR CHLORIDE 10 MEQ CPCR daily 10 MEQ CPCR LISINOPRIL 1 tablet LISINOPRIL 931199 LISINOPRIL Inactive 20 MG TABS by mouth 20 MG TABS daily DIFLUCAN 100 1 tablet DIFLUCAN 839589 FLUCONAZOLE Inactive MG TABS by mouth 100 MG TABS every other day for 2 doses DIFLUCAN 100 1 tablet DIFLUCAN 954052 FLUCONAZOLE Inactive MG TAB by mouth 100 MG TAB daily x 3 days PREDNISONE 2 tablets PREDNISONE 307771 PREDNISONE Inactive 20 MG TAB today, 20 MG TAB then 1 tablet days 2-4 VYVANSE 20 1 tablet VYVANSE 20 LISDEXAMFETAMI Inactive MG ORAL CAPS daily for MG ORAL NE DIMESYLATE binge CAPS eating disorder TRAMADOL HCL 1/2 po TRAMADOL 565764 TRAMADOL HCL Inactive 50 MG TABS tid [...] TB24 daily AMOXICILLIN 2 po BID AMOXICILLIN 191154 AMOXICILLIN Inactive 500 MG CAPS x 10 days 500 MG CAPS PREDNISONE 2 tabs PREDNISONE 824345 PREDNISONE Inactive 20 MG TAB daily for 20 MG TAB 3 days, 1 tab daily for 3 days, 1/2 tab daily for 2 days NITROFURANTO One NITROFURANT 8611160 NITROFURANTOIN Inactive IN MONOHYD capsule OIN MONOHYD MONOHYD MACRO MACRO 100 MG BID for MACRO 100 CAPS UTI MG CAPS PREDNISONE 2 pills PREDNISONE 467687 PREDNISONE Inactive 20 MG TAB daily x 4 20 MG TAB days AZITHROMYCIN 2 po qd x AZITHROMYCI 3296746 AZITHROMYCIN Inactive 250 MG TABS 1 day, N 250 MG then 1 po TABS qd x 4 days CIPRO 250 MG 1 tablet CIPRO 250 512928 CIPROFLOXACIN Inactive TAB by mouth MG TAB [...] HGBA1C - Chemistry sodium, serum 140 mmol/L 611-602 5389/06/03 potassium, serum 3.9 mmol/L 3.5-5.2 chloride, serum [...] 214 10^3/MM^3 10*3/mm3 142-424 Lab Report: Chlamydia/GC APTIMA/[id number] - Lab chlamydia DNA probe NOT DETECTED NOT DETECTED Lab Report: Chlamydia/GC APTIMA/[id number] - Microbiology Neisseria gonorrhoeae DNA probe NOT DETECTED NOT DETECTED Lab Report: Lipid Panel - Chemistry cholesterol, serum 157 mg/dL 101-225 1101/08/22 triglyceride, serum, fasting 215 mg/dL 30-200 HDL [...] mg/dL Encounters Code Encounter Date Provider Facility CPT-42938 Level 4 New Patient Yury Benoit MD [facility] 15:17:12 CDT CPT-52215 Level 3 Est. Patient [facility] - 13:37:46 CDT [facility] CPT-42186 Level 4 Est. Patient [facility] - 10:01:06 CDT [facility] CPT-96965 Level 3 Est. 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 Patient Faby Marino [facility] 14:40:56 CDT [facility] CPT-85560 Level 4 Est. Patient [facility] 17:29:53 HOTEL NIGHT AUDITOR [facility] CPT-79174 Level 4 Est. Patient [facility] 09:51:54 HOTEL NIGHT AUDITOR CPT-44734 Level 3 Est. Patient [facility] 18:59:38 CDT CPT-60273 Level 3 Est. Patient Joseph Edwin [facility] 14:42:12 CDT -[facility] CPT-59240 Level 3 Est. Patient Joseph Pineda [facility] 22:18:20 CDT -[facility] CPT-41082 Level 3 Est. Patient Joseph Pineda [facility] 16:46:04 CDT -[facility] CPT-49479 Level 3 Est. Patient Joseph Edwin [facility] 15:39:53 CDT -[facility] CPT-23038 Level 3 Est. Patient Maite Sanchez MD [facility] 13:33:34 CDT -[facility] CPT-72558 Level 3 Est. Patient Joseph Edwin [facility] 11:37:08 CDT -[facility] CPT-68499 Level 3 Est. Patient Towson Edwin [facility] 17:13:29 HOTEL NIGHT AUDITOR -[facility] CPT-39308 Level 3 Est. Patient Joseph Edwin [facility] 18:42:44 CDT CPT-52876 Level 3 Est. Patient [place] Edwin [facility] 16:25:39 CDT CPT-86864 Level 3 Est. Patient Casey Brower [facility] 09:52:45 CDT -[facility] CPT-94537 Level 3 Est. Patient Joseph Pineda [facility] 11:03:29 HOTEL NIGHT AUDITOR -[facility] CPT-16226 Level 3 Est. Patient Joseph Edwin [facility] 11:03:08 HOTEL NIGHT AUDITOR -[facility] CPT-04207 Level 3 Est. Patient Joseph Edwin [facility] 14:33:31 CDT -[facility] CPT-98076 Level 3 Est. Patient Joseph Edwin [facility] 17:05:02 HOTEL NIGHT AUDITOR -[facility] CPT-05932 Level 3 Est. Patient [facility] 17:48:06 HOTEL NIGHT AUDITOR -[facility] CPT-17260 Level 3 Est. Patient Joseph Trivedi [facility] 14:59:22 HOTEL NIGHT AUDITOR -C CPT-28831 Level 3 Est. Patient Joseph Trivedi [facility] - 21:45:56 HOTEL NIGHT AUDITOR [place] [facility] CPT-89962 Level 3 Est. Patient Joseph Trivedi [facility] 21:29:50 CDT -[facility] CPT-59600 Level 3 Est. Patient Joseph Trivedi [facility] 12:41:09 CDT -[facility] Procedures Code Procedure Name Date Entry Date Standard Description CPT-64383 Wet Mount - LAB USE ONLY 12:39:03 HOTEL NIGHT AUDITOR CPT-71249 Vaginal Culture - LAB USE ONLY 12:39:03 HOTEL NIGHT AUDITOR CPT-77601 Urine Culture - LAB USE ONLY 11:52:44 HOTEL NIGHT AUDITOR CPT-42544 UA w micro - LAB USE ONLY 11:52:44 HOTEL NIGHT AUDITOR CPT-77758 Postop F/U Visit 12:08:35 CDT CPT-75267 Postop F/U Visit 18:20:10 CDT CPT-A4351 [facility] Female Cath 09:37:10 CDT CPT-05104 Urine Dip (Floor Use Only) 15:17:13 CDT CPT-48269 Dil F ureth int 15:17:13 CDT CPT-06633 Venipuncture Draw Fee 09:19:08 CDT CPT-75674 Lipid - LAB USE ONLY 09:19:07 CDT CPT-JTINJ Asp/Joint Injection 09:26:49 CDT CPT-63233 Chest 2V Frontal and Lat 14:47:43 CDT CPT-JTINJ Asp/Joint Injection 09:51:53 HOTEL NIGHT AUDITOR CPT-OV Office Visit 17:39:05 CDT CPT-OV Office Visit 15:19:50 CDT CPT-60298 Sono transvag pelvis non OB uterus ovaries cervix 18:04:34 CDT CPT-04921 Venipuncture Draw Fee 08:55:49 HOTEL NIGHT AUDITOR
--- OUTSIDE RECORDS SUMMARY | 2016-11-20 13:17 | External Medical Summary | Clinical Summary ---
:1965 Author Organization [facility] Address [address] [address] Phone Allergies, Adverse Reactions, Alerts Allergy Name Reaction Description Start Date Severity Status Provider NKDA Critical Active Indigo Yonickieum [employer]ATOR NKDA Critical No Longer Indigo Yokum [employer]ATOR Active NKDA Critical Inactive Adrianna Elder [...] Resolved Indigo Other malaise 05/24 07/02 Yokum [employer] and fatigue SLEEP APNEA, 327.23 Active Joseph Pineda Obstructive OBSTRUCTIVE, 06/27 06/27 Farooq DO sleep apnea MILD (adult) (pediatric) OVERWEIGHT 278.02 Inactive Joseph Pineda Overweight 06/28 06/28 Farooq DO Obesity 278.00 Active Indigo Obesity, 06/28 10/18 Yokum [employer] unspecified OTH GENERAL V70.3 Resolved Maite Gutierrez Other general MEDICAL Laura ONEAL medical EXAMINATION PhD examination for ADMIN PURPOSES administrative purposes OTHER ABNORMAL 790.29 Resolved Maite C Other abnormal GLUCOSE 05/20 Laura ONEAL glucose PhD ACUTE 466.0 Resolved Maite C Acute BRONCHITIS 09/02 Laura ONEAL bronchitis PhD DEPENDENT 782.3 Resolved Indigo Edema EDEMA, LEGS, 10/29 10/18 Yokum [employer]ATOR BILATERAL HYPOKALEMIA, 276.8 Resolved Indigo Hypopotassemia MILD 10/29 07/02 Youm [employer] OPERATOR Diabetes, Type 250.00 Inactive Joseph Pineda Diabetes 2 06/27 06/27 Farooq DO mellitus without mention of complication, type II or unspecified type, not stated as uncontrolled Diabetes 250.02 Resolved Indigo Diabetes mellitus, type 06/27 [employer] O[employer] mellitus II, without mention uncontrolled of [...] Resolved Indigo Routine gynecological 12/14 07/02 Yo [employer] O[employer]ATOR gynecological examination examination Postmenopausal 627.1 Resolved Indigo Postmenopausal bleeding 12/14 [employer] O[employer]ATOR bleeding Screening for V76.51 Resolved Indigo Screening for malignant 12/26 07/02 Yokum [employer] malignant neoplasms of neoplasms of colon colon Insomnia, 307.42 Active Indigo 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 [employer] disorder of initiating or maintaining sleep Establish care V68.89 Resolved Indigo Encounters for or get 01/16 07/02 Yo [employer] O[employer]ATOR other specified acquainted administrative visit purpose Weakness, left 342.90 Resolved Indigo Hemiplegia, side of body 06/20 10/18 Yokum [employer] unspecified, affecting unspecified side TIA 435.9 Active Indigo Unspecified 06/20 07/02 Yokum [employer] transient cerebral ischemia Knee pain, 719.46 Active Indigo Pain in joint bilateral 06/20 10/18 Yokum [employer] O[employer] involving lower leg Bronchitis 490 Resolved Indigo Bronchitis, not 07/23 10/18 Yokum [employer] O[employer] specified as acute or chronic Diabetes 357.2 Active Maliheh Polyneuropathy mellitus, 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 Knee pain, 719.46 Active Indigo Pain in joint right 06/20 10/18 Yokum [employer] involving lower leg Jesi 112.3 Active Indigo Candidiasis of intertrigo 10/09 10/18 Yokum [employer] OPERATOR skin and nails Hyperlipidemia 272.4 Active Anne Other and 12/24 12/24 Neil unspecified RMA hyperlipidemia Incontinence, 788.33 Active Indigo Mixed mixed, 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 [employer] incontinence urge/stress (female) (male) Female stress 625.6 Active Yury AnthonyCarlos Enrique Stress incontinence 01/03 01/03 Cy patel MD female ABNORMAL VAGINAL ICD-626.9 Inactive Maite Sanchez BLEEDING PhD SCABIES ICD-133.0 Inactive Maite Sanchez PhD FATIGUE ICD-780.79 Inactive Indigo Yokum [employer] OTH GENERAL ICD-V70.3 Inactive Maite Sanchez MEDICAL PhD EXAMINATION ADMIN PURPOSES OTHER ABNORMAL ICD-790.29 Inactive Maite Sanchez GLUCOSE PhD ACUTE BRONCHITIS ICD-466.0 Inactive Maite Matt Sanchez PhD DEPENDENT EDEMA, ICD-782.3 Inactive Indigo Yokum LEGS, BILATERAL LI[employer] OPERATOR HYPOKALEMIA, MILD ICD-276.8 Inactive Indigo Yokum [employer] Diabetes mellitus, ICD-250.02 Inactive Indigo Yokum type II, [employer] uncontrolled Sinusitis, ICD-461.1 Inactive Ismael Coyne frontal, acute Amandeep ONEAL Laryngitis, acute ICD-464.00 Inactive Ismael Coyne Amandeep ONEAL Routine ICD-V72.31 Inactive Indigo Yokum gynecological [employer] examination Postmenopausal ICD-627.1 Inactive Indigo Yokum 2015 bleeding [employer] OPERATOR Screening for ICD-V76.51 Inactive Indigo Yokum 2015 malignant [employer] O[employer]ATOR neoplasms of colon Establish care or ICD-V68.89 Inactive Indigo Yokum get acquainted [employer]PERATOR visit Weakness, left ICD-342.90 Inactive Indigo Yokum side of body [employer] OPERATOR Bronchitis ICD-490 Inactive Indigo Yokum [employer]PERATOR Medication List Medication Instructions Start Stop Generic NDC Status Provider Patient Date Date Name Instruction METFORMIN 2 tablets METFORMIN 29719894825 No Indigo Active HCL 500 MG by mouth HCL Longer Yokum TB24 twice Active [employer] O[employer]ATOR daily AMARYL 1 MG 1 tablet GLIMEPIRID 48170492076 No Indigo Active ORAL TABS orally E Longer Yokum twice Active [employer] OPERATOR daily NYSTATIN apply to NYSTATIN 56500862969 Active Indigo Active 978782 rash TID Yokum UNIT/GM PRN [employer] OPERATOR CREA TROKENDI XR 2 tab TOPIRAMATE 75048147616 Active Malihe Active 100 MG ORAL daily h [id number] Ziglar i CREW CHIEF METOPROLOL 1 tab po METOPROLOL 39261049851 Active Indigo Active TARTRATE 25 bid TARTRATE Yokum MG TABS [employer] OPERATOR AZITHROMYCI 2 po qd x AZITHROMYC 59974910429 No Jillin Active N 250 MG 1 day, IN Longer a TABS then 1 po Active Frazel qd x 4 l [employer] OPERATOR days PREDNISONE 2 pills PREDNISONE 86545657886 No Jillin Active 20 MG TAB daily x 4 Longer a days Active Frazel l [employer] OPERATOR PIOGLITAZON take one PIOGLITAZO 96455186588 Active Malihe Active E HCL 30 MG a day NE HCL h ORAL TABS Ziglar i CREW CHIEF JANUVIA 100 1 tablet SITAGLIPTI 55813719129 No Indigo Active MG TABS by mouth N Longer Yokum daily PHOSPHATE Active [employer] OPERATOR ATORVASTATI 1 pill by ATORVASTAT 10465811611 Active Indigo Active N CALCIUM mouth IN CALCIUM Yokum 10 MG TABS nightly, [employer] OPERATOR for cholester ol ASPIRIN 81 1 po qd ASPIRIN 47325984616 Active Indigo Active MG ORAL Yokum TABS [employer] OPERATOR NITROFURANT One NITROFURAN 27230168101 No Indigo Active OIN MONOHYD capsule TOIN Longer Yokum MACRO 100 BID for MONOHYD Active LIQU[employer] PL[employer] OPERATOR MG CAPS UTI MACRO TRAMADOL 1/2 po TRAMADOL 76756144553 No Jillin Active HCL 50 MG tid with HCL Longer a TABS ES Active Frazel Tylenol l [employer] OPERATOR prn pain VYVANSE 20 1 tablet LISDEXAMFE 86140740086 No Jillin Active MG ORAL daily for TAMINE Longer a CAPS binge DIMESYLATE Active Frazel eating l [employer] OPERATOR disorder LASIX 20 MG 2 tablet FUROSEMIDE 26054113289 Active Indigo Active TAB by mouth Yokum daily [employer] PLANT OPERATOR CELEBREX 1 tablet CELECOXIB 05901733951 Active Indigo Active 200 MG CAPS by mouth Yokum daily [employer] OPERATOR with meals PREDNISONE 2 tablets PREDNISONE 18598774366 No Joseph Active 20 MG TAB today, Longer W Farooq then 1 Active DO tablet days 2-4 DIFLUCAN 1 tablet FLUCONAZOL 81133307674 No Joseph Active 100 MG TAB by mouth E Longer W Farooq daily x 3 Active DO days DIFLUCAN 1 tablet FLUCONAZOL 22940510342 No Joseph Active 100 MG TABS by mouth E Longer W Farooq every Active DO other day for 2 doses ZOFRAN 4 MG 1 po q6hr ONDANSETRO 66015664468 Active Joseph Active TABS PRN N HCL W Farooq Nausea DO PREDNISONE 2 tabs PREDNISONE 38340274691 No Joseph Active 20 MG TAB daily for Longer W Farooq 3 days, 1 Active DO tab daily for 3 days, 1/2 tab daily for 2 days AMOXICILLIN 2 po BID AMOXICILLI 01430647397 No Maite C Active 500 MG CAPS x 10 days N Longer Madril Active PhD LISINOPRIL 1 tablet LISINOPRIL 53868154367 No Maite C Active 20 MG TABS by mouth Longer Madril daily Active PhD POTASSIUM 2 capsule POTASSIUM 22330389946 No Joseph Active CHLORIDE CR by mouth CHLORIDE Longer W Farooq 10 MEQ CPCR daily Active DO SPIRONOLACT 1 tablet SPIRONOLAC 54876096043 No Joseph Active ONE 25 MG by mouth TONE Longer W Farooq TAB daily Active DO METFORMIN 1 tablet METFORMIN 23667655910 No Joseph Active HCL 500 MG by mouth HCL Longer W Farooq TABS twice Active DO daily AMARYL 1 MG 1 tab GLIMEPIRID 59708021972 No Joseph Active TABS twice E Longer W Farooq daily Active DO PHENTERMINE 1 po q am PHENTERMIN 86432371706 No Joseph Active HCL 37.5 MG for wt. E HCL Longer W Farooq TABS loss Active DO PROMETHAZIN 1 tab by PROMETHAZI 54360948821 No Joseph Active E HCL 25 MG mouth NE HCL Longer W Farooq TABS every 6 Active DO hours as needed CIPROFLOXAC Take one CIPROFLOXA 53724771104 No Joseph Active IN HCL 500 (1) DELORES HCL Longer W Farooq MG TABS tablet by Active DO mouth twice a day ABILIFY 5 one p.o. ARIPIPRAZO 45797046639 No Joseph Active MG TABS q. day LE Longer W Farooq Active DO HYDROCHLORO 2 tabs HYDROCHLOR 04799313246 No Joseph Active THIAZIDE 25 every OTHIAZIDE Longer W Farooq MG TABS morning Active DO ABILIFY 2 1 po q hs ARIPIPRAZO 91175922776 No Joseph Active MG TABS for major LE Longer W Afrooq depressio Active DO n ADIPEX-P 1/2 tab PHENTERMIN 78536232007 No Casey Active 37.5 MG po q am E HCL Longer [place] CAPS for Active PA weight loss CIPRO 500 1 tablet CIPROFLOXA 66797767752 No Casey Active MG TAB by mouth DELORES HCL Longer Leonarda twice Active PA daily NECON 1/35 1 po NORETHINDR 87314553008 No Casey Active (28) 1-35 daily ONE-ETH Longer Leonarda MG-MCG TABS ESTRADIOL Active PA TRAMADOL 1 po tid TRAMADOL 34146828248 No Casey Active HCL 50 MG with ES HCL Longer Leonarda TABS Tylenol Active PA FLUCONAZOLE one p.o. FLUCONAZOL 25052142229 No Casey Active 100 MG TABS q. day 2 E Longer Leonarda days Active PA POTASSIUM 1 capsule POTASSIUM 64584565624 No Casey Active CHLORIDE CR by mouth CHLORIDE Longer 10 MEQ CPCR daily Active PA IMIPRAMINE Take 6 IMIPRAMINE 59944090001 Active Indigo Active HCL 50 MG tablets HCL Yokum TABS by mouth LI[employer] PLANT OPERATOR at bedtime DIFLUCAN 1 tablet FLUCONAZOL 82556522833 No Joseph Active 100 MG TAB by mouth E Longer W Farooq daily Active DO VERAPAMIL 2 po bid VERAPAMIL 73474944866 Active Indigo Active HCL CR 120 HCL Yokum MG TAB CR [employer] PLANT OPERATOR PERMETHRIN apply PERMETHRIN 73150429468 No Joseph Active 5 % CREA neck to Longer W Farooq toes Active DO tonight and then rinse off in morning. repeat at 7 days SEROQUEL XR one p.o. QUETIAPINE 84233856523 No Joseph Active 50 MG q. FUMARATE Longer W Farooq [id number] evening Active DO TRAMADOL 1-2 TRAMADOL 30865358181 No Joseph Active HCL 50 MG tablets HCL Longer W Farooq TABS every 6-8 Active DO hours as needed for pain ALPRAZOLAM one p.o. ALPRAZOLAM 24090814770 Active Indigo Active 3 MG q.h.s. Yokum [id number] [employer] OPERATOR ALPRAZOLAM Take 1 ALPRAZOLAM 94711406391 No Joseph Active XR tablet by [id number] Longer W Farooq [id number] mouth at Active DO bedtime DIFLUCAN 1 tablet FLUCONAZOL 61334087575 No Joseph Active 100 MG TAB by mouth E Longer W Farooq daily Active DO AMBIEN 10 1 tab by ZOLPIDEM 35723245457 Active Indigo Active MG TAB mouth at TARTRATE Yokum bedtime [employer] PL[employer] OPERATOR as needed for sleep DIFLUCAN 100 1 tablet DIFLUCAN 667219 FLUCONAZOLE Inactive MG TAB by mouth 100 MG TAB daily ALPRAZOLAM Take 1 ALPRAZOLAM ALPRAZOLAM Inactive XR [id number] tablet by XR [id number] mouth at [id number] bedtime TRAMADOL HCL 1-2 TRAMADOL 989755 TRAMADOL HCL Inactive 50 MG TABS tablets HCL 50 MG every 6-8 TABS hours as needed for pain SEROQUEL XR one p.o. SEROQUEL XR QUETIAPINE Inactive 50 MG q. 50 MG FUMARATE [id number] evening [id number] PERMETHRIN 5 apply PERMETHRIN 873496 PERMETHRIN Inactive % CREA neck to 5 % CREA toes tonight and then rinse off in morning. repeat at 7 days DIFLUCAN 100 1 tablet DIFLUCAN 039594 FLUCONAZOLE Inactive MG TAB by mouth 100 MG TAB daily POTASSIUM 1 capsule POTASSIUM POTASSIUM Inactive CHLORIDE CR by mouth CHLORIDE CR CHLORIDE 10 MEQ CPCR daily 10 MEQ CPCR FLUCONAZOLE one p.o. FLUCONAZOLE 669064 FLUCONAZOLE Inactive 100 MG TABS q. day 2 100 MG TABS days TRAMADOL HCL 1 po tid TRAMADOL 534454 TRAMADOL HCL Inactive 50 MG TABS with ES HCL 50 MG Tylenol TABS NECON 1/35 1 po NECON 1/35 NORETHINDRONE- Inactive (28) 1-35 daily (28) 1-35 ETH ESTRADIOL MG-MCG TABS MG-MCG TABS CIPRO 500 MG 1 tablet CIPRO 500 702619 CIPROFLOXACIN Inactive TAB by mouth MG TAB HCL twice daily ADIPEX-P 1/2 tab ADIPEX-P 211808 PHENTERMINE Inactive 37.5 MG CAPS po q am 37.5 MG HCL for CAPS weight loss ABILIFY 2 MG 1 po q hs ABILIFY 2 714584 ARIPIPRAZOLE Inactive TABS for major MG TABS depressio n HYDROCHLOROT 2 tabs HYDROCHLORO 364176 HYDROCHLOROTHI Inactive HIAZIDE 25 every THIAZIDE 25 AZIDE MG TABS morning MG TABS ABILIFY 5 MG one p.o. ABILIFY 5 841071 ARIPIPRAZOLE Inactive TABS q. day MG TABS CIPROFLOXACI Take one CIPROFLOXAC 808199 CIPROFLOXACIN Inactive N HCL 500 MG (1) IN HCL 500 HCL TABS tablet by MG TABS mouth twice a day PROMETHAZINE 1 tab by PROMETHAZIN 149176 PROMETHAZINE Inactive HCL 25 MG mouth E HCL 25 MG HCL TABS every 6 TABS hours as needed PHENTERMINE 1 po q am PHENTERMINE 586978 PHENTERMINE Inactive HCL 37.5 MG for wt. HCL 37.5 MG HCL TABS loss TABS AMARYL 1 MG 1 tab AMARYL 1 MG 740869 GLIMEPIRIDE Inactive TABS twice TABS daily METFORMIN 1 tablet METFORMIN 047697 METFORMIN HCL Inactive HCL 500 MG by mouth HCL 500 MG TABS twice TABS daily SPIRONOLACTO 1 tablet SPIRONOLACT 873329 SPIRONOLACTONE Inactive NE 25 MG TAB by mouth ONE 25 MG daily TAB POTASSIUM 2 capsule POTASSIUM POTASSIUM Inactive CHLORIDE CR by mouth CHLORIDE CR CHLORIDE 10 MEQ CPCR daily 10 MEQ CPCR LISINOPRIL 1 tablet LISINOPRIL 804458 LISINOPRIL Inactive 20 MG TABS by mouth 20 MG TABS daily DIFLUCAN 100 1 tablet DIFLUCAN 19760111 FLUCONAZOLE Inactive MG TABS by mouth 100 MG TABS every other day for 2 doses DIFLUCAN 100 1 tablet DIFLUCAN 713410 FLUCONAZOLE Inactive MG TAB by mouth 100 MG TAB daily x 3 days PREDNISONE 2 tablets PREDNISONE 215166 PREDNISONE Inactive 20 MG TAB today, 20 MG TAB then 1 tablet days 2-4 VYVANSE 20 1 tablet VYVANSE 20 LISDEXAMFETAMI Inactive MG ORAL CAPS daily for MG ORAL NE DIMESYLATE binge CAPS eating disorder TRAMADOL HCL 1/2 po TRAMADOL 790579 TRAMADOL HCL Inactive 50 MG TABS tid with HCL 50 MG ES TABS Tylenol prn pain JANUVIA 100 1 tablet JANUVIA 100 SITAGLIPTIN Inactive MG TABS by mouth MG TABS PHOSPHATE daily AMARYL 1 MG 1 tablet AMARYL 1 MG 840880 GLIMEPIRIDE Inactive ORAL TABS orally ORAL TABS twice daily METFORMIN 2 tablets METFORMIN METFORMIN HCL Inactive HCL 500 MG by mouth HCL 500 MG TB24 twice TB24 daily AMOXICILLIN 2 po BID AMOXICILLIN 830666 AMOXICILLIN Inactive 500 MG CAPS x 10 days 500 MG CAPS PREDNISONE 2 tabs PREDNISONE 118725 PREDNISONE Inactive 20 MG TAB daily for 20 MG TAB 3 days, 1 tab daily for 3 days, 1/2 tab daily for 2 days NITROFURANTO One NITROFURANT 4839140 NITROFURANTOIN Inactive IN MONOHYD capsule OIN MONOHYD MONOHYD MACRO MACRO 100 MG BID for MACRO 100 CAPS UTI MG CAPS PREDNISONE 2 pills PREDNISONE 032106 PREDNISONE Inactive 20 MG TAB daily x 4 20 MG TAB days AZITHROMYCIN 2 po qd x AZITHROMYCI 5802108 AZITHROMYCIN Inactive 250 MG TABS 1 day, [...] HGBA1C - Chemistry sodium, serum 140 mmol/L 925-042 0981/06/03 potassium, serum 3.9 mmol/L 3.5-5.2 chloride, serum [...] Panel - Chemistry sodium, serum 136 mmol/L 408-634 6402/01/04 carbon dioxide, venous blood 27.0 mmol/L 21.0-32.0 potassium, serum 4.6 mmol/L 3.5-5.2 chloride, serum 98 mmol/L 98-107 blood glucose 174 mg/dL 65-110 urea nitrogen, blood 12 mg/dL 7-18 creatinine, serum 0.78 mg/dL 0.55-1.30 alanine aminotransferase (SGPT), serum 65 U/L 12-78 aspartate aminotransferase (SGOT), serum 34 U/L 15-37 calcium, serum 8.9 mg/dL 8.5-10.1 bilirubin, serum, total 0.40 mg/dL 0.00-1.00 cholesterol, serum 219 mg/dL 347-423 9345/01/04 triglyceride, serum, fasting 214 mg/dL 30-200 HDL cholesterol, serum 39 mg/dL 32-96 LDL cholesterol, serum 137 mg/dL 0-130 Lab Report: Lipid Panel - Chemistry cholesterol, serum 157 mg/dL 006-933 4199/08/22 triglyceride, serum, fasting 215 mg/dL 30-200 HDL [...] mg/dL Encounters Code Encounter Date Provider Facility CPT-94154 Level 4 New Patient Yury Benoit MD [facility] 15:17:12 CDT CPT-63016 Level 3 Est. Patient Pending sale to [facility] - 13:37:46 CDT [place] CPT-94055 Level 4 Est. Patient Pending sale to [facility] - 10:01:06 CDT [place] CPT-81516 Level 3 Est. Patient [facility] 08:58:07 CDT [employer] CPT-25306 Level 3 Est. Patient Faby Marino [facility] 14:40:56 CDT [facility] CPT-18758 Level 4 Est. Patient [facility] 17:29:53 COMPLAINT ANALYST CREW CHIEF CPT-28886 Level 4 Est. Patient Pending sale to [facility] 09:51:54 COMPLAINT ANALYST CPT-82500 Level 3 Est. Patient Indigo Sexton ALEJANDR[facility] 18:59:38 CDT CPT-20585 Level 3 Est. Patient [facility] 14:42:12 CDT -[facility] CPT-66121 Level 3 Est. Patient Joseph Pineda [facility] 22:18:20 CDT -[facility] CPT-34853 Level 3 Est. Patient [facility] 16:46:04 CDT -[facility] CPT-07841 Level 3 Est. Patient [facility] 15:39:53 CDT -[facility] CPT-86856 Level 3 Est. Patient Maite Sanchez MD [facility] 13:33:34 CDT -[facility] CPT-52996 Level 3 Est. Patient [place] [facility] 11:37:08 CDT -[facility] CPT-76918 Level 3 Est. Patient [facility] 17:13:29 COMPLAINT ANALYST -[facility]HC CPT-72319 Level 3 Est. Patient [place] [facility] 18:42:44 CDT CPT-47610 Level 3 Est. Patient [place] [facility] 16:25:39 CDT CPT-25001 Level 3 Est. Patient Casey Brower [facility] 09:52:45 CDT -[facility] CPT-44717 Level 3 Est. Patient [facility] 11:03:29 COMPLAINT ANALYST -[facility]HC CPT-84986 Level 3 Est. Patient [place] [facility] 11:03:08 COMPLAINT ANALYST -RHC CPT-92136 Level 3 Est. Patient [facility] 14:33:31 CDT -[facility]HC CPT-04321 Level 3 Est. Patient [facility] 17:05:02 COMPLAINT ANALYST -RHC CPT-53549 Level 3 Est. Patient [facility] 17:48:06 COMPLAINT ANALYST -RHC CPT-60640 Level 3 Est. Patient Joseph Pineda [facility] 14:59:22 COMPLAINT ANALYST -RHC CPT-83869 Level 3 Est. Patient Joseph Pineda [facility] - 21:45:56 COMPLAINT ANALYST [place] [facility] CPT-76732 Level 3 Est. Patient Joseph Pineda [facility] 21:29:50 CDT -RHC CPT-54096 Level 3 Est. Patient Joseph Pineda [facility] 12:41:09 CDT -RHC Procedures Code Procedure Name Date Entry Date Standard Description CPT-97994 Postop F/U Visit 12:08:35 CDT CPT-84598 Postop F/U Visit 18:20:10 CDT CPT-A4351 [facility] Female Cath 09:37:10 CDT CPT-15795 Urine Dip (Floor Use Only) 15:17:13 CDT CPT-87164 Dil F ureth int 15:17:13 CDT CPT-39958 Venipuncture Draw Fee 09:19:08 CDT CPT-60121 Lipid - LAB USE ONLY 09:19:07 CDT CPT-JTINJ Asp/Joint Injection 09:26:49 CDT CPT-83302 Chest 2V Frontal and Lat 14:47:43 CDT CPT-JTINJ Asp/Joint Injection 09:51:53 COMPLAINT ANALYST CPT-OV Office Visit 17:39:05 CDT CPT-OV Office Visit 15:19:50 CDT CPT-76135 Sono transvag pelvis non OB uterus ovaries cervix 18:04:34 CDT CPT-63237 Venipuncture Draw Fee 08:55:49 COMPLAINT ANALYST
--- OUTSIDE RECORDS SUMMARY | 2016-11-20 13:17 | External Medical Summary | Clinical Summary ---
:1965 Author Organization [employer] Address [address] [place] [address] Phone Allergies, Adverse Reactions, Alerts Allergy Name Reaction Description Start Date Severity Status Provider NKDA Critical No Longer Indigo Yokum FIELD PROJECT MANAGER Active NKDA Critical Inactive Adrianna Elder Conditions or Problems Problem Name Problem Onset Status Entry Provider Comment Standard Annotate Code Date Date Description ABNORMAL 626.9 Resolved Maite Gutierrez Unspecified VAGINAL Laura ONEAL disorders of BLEEDING PhD menstruation and other abnormal bleeding from female genital tract DEPRESSION, 296.33 Active Joseph Pineda Major ACUTE, Farooq depressive RECURRENT disorder, recurrent episode, severe degree, without mention of psychotic behavior SCABIES 133.0 Resolved Maite Gutierrez Scabies 06/23 Laura ONEAL PhD HYPERTENSION 401.9 Active Joseph Pineda Unspecified 05/24 Farooq DO essential hypertension FATIGUE 780.79 Resolved Indigo Other malaise 05/24 07/02 Yokum FIELD PROJECT MANAGER and fatigue SLEEP APNEA, 327.23 Active Joseph Pineda Obstructive OBSTRUCTIVE, 06/27 06/27 Farooq sleep apnea MILD (adult) (pediatric) OVERWEIGHT 278.02 [...] Resolved Indigo Hypopotassemia MILD 10/29 07/02 Yo FIELD PROJECT MANAGER Diabetes, Type 250.00 Inactive Joseph Pineda Diabetes 2 06/27 06/27 Farooq DO mellitus without mention of complication, type II or unspecified type, not stated as uncontrolled Diabetes 250.02 Active Indigo Diabetes mellitus, type 06/27 FIELD PROJECT MANAGER mellitus II, without mention uncontrolled of complication, type II or unspecified type, uncontrolled Health V70.0 Active Joseph Pineda Routine general screening 01/17 01/17 Farooq DO medical examination at a health care facility Sinusitis, 461.1 Resolved Ismael Coyne Acute frontal frontal, acute 12/26 [place] sinusitis Laryngitis, 464.00 Resolved Ismael Coyne Acute acute 12/26 Amandeep laryngitis without mention of obstruction Binge eating 307.51 Active Joseph Pineda Bulimia nervosa disorder 08/15 08/15 Farooq DO Routine V72.31 Resolved Indigo Routine gynecological 12/14 FIELD PROJECT MANAGER gynecological examination examination Postmenopausal 627.1 Resolved Indigo Postmenopausal bleeding 12/14 FIELD PROJECT MANAGER bleeding Screening for V76.51 Resolved Indigo Screening for malignant 12/26 07/02 Youm FIELD PROJECT MANAGER malignant neoplasms of neoplasms of colon colon Insomnia, 307.42 Active Indigo 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 FIELD PROJECT MANAGER disorder of initiating or maintaining sleep Establish care V68.89 Resolved Indigo Encounters for or get 01/16 FIELD PROJECT MANAGER other specified acquainted administrative visit purpose Weakness, left 342.90 Active Indigo Hemiplegia, side of body 06/20 06/20 Yokum FIELD PROJECT MANAGER unspecified, affecting unspecified side TIA 435.9 Active Indigo Unspecified 06/20 07/02 Yokum FIELD PROJECT MANAGER transient cerebral ischemia Knee pain, 719.46 Active Indigo Pain in joint bilateral 06/20 FIELD PROJECT MANAGER involving lower leg Bronchitis 490 Active Jillina Bronchitis, not 07/23 07/23 Frazell specified as FIELD PROJECT MANAGER acute or chronic Diabetes 357.2 Active Maliheh Polyneuropathy mellitus, 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NECK BAND MAKER 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y ABNORMAL VAGINAL ICD-626.9 Inactive Maite Matt Sanchez BLEEDING PhD SCABIES ICD-133.0 Inactive Maite C Laura PhD FATIGUE ICD-780.79 Inactive Indigo Jordanum FIELD PROJECT MANAGER OTH GENERAL ICD-V70.3 Inactive Maite Sanchez MEDICAL MD PhD EXAMINATION ADMIN PURPOSES OTHER ABNORMAL ICD-790.29 Inactive Maite Matt Sanchez GLUCOSE MD PhD ACUTE BRONCHITIS ICD-466.0 Inactive Maite Sanchez PhD HYPOKALEMIA, MILD ICD-276.8 Inactive Indigo Jordanum FIELD PROJECT MANAGER Sinusitis, ICD-461.1 Inactive Ismael Coyne frontal, acute Amandeep ONEAL Laryngitis, acute ICD-464.00 Inactive Ismael Coyne Amandeep ONEAL Routine ICD-V72.31 Inactive Indigo Yokum gynecological FIELD PROJECT MANAGER examination Postmenopausal ICD-627.1 Inactive Indigo Yokum 2015 bleeding FIELD PROJECT MANAGER Screening for ICD-V76.51 Inactive Indigo Yokum 2015 malignant FIELD PROJECT MANAGER neoplasms of colon Establish care or ICD-V68.89 Inactive Indigo Yokum get acquainted FIELD PROJECT MANAGER visit Medication List Medication Instructions Start Stop Generic NDC Status Provider Patient Date Date Name Instruction TROKENDI XR 2 tab TOPIRAMATE 18364237214 Active Maliheh Active 100 MG ORAL daily Ziglari [id number] NECK BAND MAKER METOPROLOL 1 tab po METOPROLOL 40687136372 Active Sherice Wilfredo Active TARTRATE 25 MG bid TARTRATE RMA TABS AZITHROMYCIN 2 po qd x 2 AZITHROMYCIN 83860766344 No Jillina Active 250 MG TABS 1 day, 0 Longer Frazell then 1 po 1 Active FIELD PROJECT MANAGER qd x 4 6 days / 0 3 / 2 6 PREDNISONE 20 2 pills 2 PREDNISONE 69046495125 No Jillina Active MG TAB daily x 4 0 Longer Frazell days 1 Active FIELD PROJECT MANAGER 6 / 0 3 / 5 PIOGLITAZONE take one PIOGLITAZONE 37151630405 Active Maliheh Active HCL 30 MG ORAL a day HCL Ziglari TABS NECK BAND MAKER JANUVIA 100 MG 1 tablet 2 SITAGLIPTIN 77939343019 No Indigo Active TABS by mouth 0 PHOSPHATE Longer Yokum daily 1 Active FIELD PROJECT MANAGER 6 / 0 2 / 6 ATORVASTATIN 1 pill by ATORVASTATIN 70820110276 Active Indigo Active CALCIUM 10 MG mouth CALCIUM Yokum TABS nightly, FIELD PROJECT MANAGER for cholester ol ASPIRIN 81 MG 1 po qd ASPIRIN 09425644629 Active Indigo Active ORAL TABS Yokum FIELD PROJECT MANAGER NITROFURANTOIN One 2 NITROFURANTOIN 82031308120 No Idnigo Active MONOHYD MACRO capsule 0 MONOHYD MACRO Longer Yokum 100 MG CAPS BID for 1 Active FIELD PROJECT MANAGER UTI 6 / 0 2 / 3 METFORMIN HCL 2 tablets METFORMIN HCL 90772931618 Active Indigo Active 500 MG TB24 by mouth Yokum twice FIELD PROJECT MANAGER daily TRAMADOL HCL 1/2 po 2 TRAMADOL HCL 70558543252 No Jillina Active 50 MG TABS tid with 0 Longer Frazell ES 1 Active FIELD PROJECT MANAGER Tylenol 5 prn pain / 0 8 / 2 VYVANSE 20 MG 1 tablet 2 LISDEXAMFETAMI 13959591654 No Jillina Active ORAL CAPS daily for 0 NE DIMESYLATE Longer Frazell binge 1 Active FIELD PROJECT MANAGER eating 5 disorder / 0 2 LASIX 20 MG 2 tablet FUROSEMIDE 12713809700 Active Indigo Active TAB by mouth Yokum daily FIELD PROJECT MANAGER CELEBREX 200 1 tablet CELECOXIB 36217382700 Active Indigo Active MG CAPS by mouth Yokum daily FIELD PROJECT MANAGER with meals PREDNISONE 20 2 tablets 2 PREDNISONE 10817603274 No Joseph W Active MG TAB today, 0 Longer Farooq DO then 1 1 Active tablet 5 days 2-4 / 0 3 DIFLUCAN 100 1 tablet 2 FLUCONAZOLE 30823414353 No Joseph W Active MG TAB by mouth 0 Longer Farooq DO daily x 3 1 Active days 5 / 0 3 AMARYL 1 MG 1 tablet GLIMEPIRIDE 47960731625 Active Joseph W Active ORAL TABS orally Farooq DO twice daily DIFLUCAN 100 1 tablet 2 FLUCONAZOLE 78558268501 No Joseph W Active MG TABS by mouth 0 Longer Farooq DO every 1 Active other day 5 for 2 / doses 0 1 / 2 3 ZOFRAN 4 MG 1 po q6hr ONDANSETRON 54920949084 Active Joseph W Active TABS PRN HCL Farooq DO Nausea PREDNISONE 20 2 tabs 2 PREDNISONE 14336633984 No Joseph W Active MG TAB daily for 0 Longer Farooq DO 3 days, 1 1 Active tab daily 4 for 3 / days, 1/2 1 tab daily 0 for 2 / days 2 5 AMOXICILLIN 2 po BID 2 AMOXICILLIN 53276394158 No Maite C Active 500 MG CAPS x 10 days 0 Longer Laura ONEAL 1 Active PhD 0 / 2 0 LISINOPRIL 20 1 tablet 2 LISINOPRIL 76152562094 No Maite C Active MG TABS by mouth 0 Longer Laura MD daily 1 Active PhD 4 0 / 1 0 POTASSIUM 2 capsule 2 POTASSIUM 50361589215 No Joseph W Active CHLORIDE CR 10 by mouth 0 CHLORIDE Longer Farooq DO MEQ CPCR daily 1 Active 0 8 / 2 9 SPIRONOLACTONE 1 tablet 2 SPIRONOLACTONE 96957112870 No Joseph W Active 25 MG TAB by mouth 0 Longer Farooq DO daily 1 Active 4 / 0 8 / 2 9 METFORMIN HCL 1 tablet 2 METFORMIN HCL 83574683775 No Joseph W Active 500 MG TABS by mouth 0 Longer Farooq DO twice 1 Active daily 4 / 0 8 / 2 9 AMARYL 1 MG 1 tab 2 GLIMEPIRIDE 97959777611 No Joseph W Active TABS twice 0 Longer Farooq DO daily 1 Active 4 / 0 8 / 2 9 PHENTERMINE 1 po q am 2 PHENTERMINE 35916755305 No Joseph W Active HCL 37.5 MG for wt. 0 HCL Longer Farooq DO TABS loss 1 Active 3 / 1 2 / 2 3 PROMETHAZINE 1 tab by 2 PROMETHAZINE 66055802110 No Joseph W Active HCL 25 MG TABS mouth 0 HCL Longer Farooq DO every 6 1 Active hours as 3 needed / 0 9 / 0 9 CIPROFLOXACIN Take one 2 CIPROFLOXACIN 55911281607 No Joseph W Active HCL 500 MG (1) 0 HCL Longer Farooq DO TABS tablet by 1 Active mouth 3 twice a / day 0 9 / 0 9 ABILIFY 5 MG one p.o. 2 ARIPIPRAZOLE 03173538194 No Joseph W Active TABS q. day 0 Longer Farooq DO 1 Active 3 / 0 9 / 0 9 HYDROCHLOROTHI 2 tabs 2 HYDROCHLOROTHI 86356207507 No Joseph W Active AZIDE 25 MG every 0 AZIDE Longer Farooq DO TABS morning 1 Active 3 / 0 6 / 2 7 ABILIFY 2 MG 1 po q hs 2 ARIPIPRAZOLE 89458105883 No Joseph W Active TABS for major 0 Longer Farooq DO depressio 1 Active n 3 / 0 5 / 0 7 ADIPEX-P 37.5 1/2 tab 2 PHENTERMINE 65465048029 No Casey Active MG CAPS po q am 0 HCL Longer [place] for 1 Active weight 3 loss / 0 5 / 0 1 CIPRO 500 MG 1 tablet 2 CIPROFLOXACIN 31494870455 No Casey Active TAB by mouth 0 HCL Longer [place] twice 1 Active daily 3 / 0 5 / 0 1 NECON 1 po 2 NORETHINDRONE- 45765917021 No Casey Active (28) 1-35 daily 0 ETH ESTRADIOL Longer [place] MG-MCG TABS 1 Active 3 / 0 5 / 0 1 TRAMADOL HCL 1 po tid 2 TRAMADOL HCL 59050840603 No Casey Active 50 MG TABS with ES 0 Longer [facility] Tylenol 1 Active 3 / 0 5 / 0 1 FLUCONAZOLE one p.o. 2 FLUCONAZOLE 37420155817 No Casey Active 100 MG TABS q. day 2 0 Longer [facility] days 1 Active 3 / 0 5 / 0 1 POTASSIUM 1 capsule 2 POTASSIUM 92904518799 No Casey Active CHLORIDE CR 10 by mouth 0 CHLORIDE Longer [facility] MEQ CPCR daily 1 Active 3 / 0 5 / 0 1 IMIPRAMINE HCL Take 6 IMIPRAMINE HCL 63742407610 Active Joseph W Active 50 MG TABS tablets Farooq DO by mouth at bedtime DIFLUCAN 100 1 tablet 2 FLUCONAZOLE 10045566571 No Joseph W Active MG TAB by mouth 0 Longer Farooq DO daily 1 Active 2 / 0 2 / 2 4 VERAPAMIL HCL 2 po bid VERAPAMIL HCL 32583130661 Active Joseph W Active CR 120 MG TAB Farooq DO CR PERMETHRIN 5 % apply 2 PERMETHRIN 47323907055 No Joseph W Active CREA neck to 0 Longer Farooq DO toes 1 Active tonight 2 and then / rinse off 0 in 1 morning. / repeat 2 at 7 days 0 SEROQUEL XR 50 one p.o. 2 QUETIAPINE 03958617584 No Joseph W Active MG [id number] q. 0 FUMARATE Longer Farooq DO evening 1 Active 2 / 0 1 / 2 0 TRAMADOL HCL 1-2 2 TRAMADOL HCL 23339009546 No Joseph W Active 50 MG TABS tablets 0 Longer Farooq DO every 6-8 1 Active hours as 2 needed / for pain 0 1 / 2 0 ALPRAZOLAM 3 one p.o. ALPRAZOLAM 57451638453 Active Indigo Active MG [id number] q.h.s. Yokum FIELD PROJECT MANAGER ALPRAZOLAM XR Take 1 2 ALPRAZOLAM 39221582912 No Joseph W Active [id number] tablet by 0 [id number] Longer Farooq DO mouth at 1 Active bedtime 1 / 2 9 DIFLUCAN 100 1 tablet 2 FLUCONAZOLE 02836413784 No Joseph W Active MG TAB by mouth 0 Longer Farooq DO daily 1 Active 0 / 0 6 AMBIEN 10 MG 1 tab by ZOLPIDEM 18535561426 Active Afsaneh Active TAB mouth at TARTRATE Gericke, bedtime MA as needed for sleep DIFLUCAN 100 1 tablet DIFLUCAN 870118 FLUCONAZOLE Inactive MG TAB by mouth 100 MG TAB daily ALPRAZOLAM Take 1 ALPRAZOLAM ALPRAZOLAM Inactive XR [id number] tablet by XR [id number] mouth at [id number] bedtime TRAMADOL HCL 1-2 TRAMADOL 097365 TRAMADOL HCL Inactive 50 MG TABS tablets HCL 50 MG every 6-8 TABS hours as needed for pain SEROQUEL XR one p.o. SEROQUEL XR QUETIAPINE Inactive 50 MG q. 50 MG FUMARATE [id number] evening IY39H-[id number] PERMETHRIN 5 apply PERMETHRIN 599247 PERMETHRIN Inactive % CREA neck to 5 [...] days TRAMADOL HCL 1 po tid TRAMADOL 760597 TRAMADOL HCL Inactive 50 MG TABS with ES HCL 50 MG Tylenol TABS NECON 1 po NECON 1/35 NORETHINDRONE- Inactive (28) 1-35 daily (28) 1-35 ETH ESTRADIOL MG-MCG TABS MG-MCG TABS CIPRO 500 MG 1 tablet CIPRO 500 761945 CIPROFLOXACIN Inactive TAB by mouth MG TAB HCL twice daily ADIPEX-P 1/2 tab ADIPEX-P 140517 PHENTERMINE Inactive 37.5 MG CAPS po q am 37.5 MG HCL for CAPS weight loss ABILIFY 2 MG 1 po q hs ABILIFY 2 732354 ARIPIPRAZOLE Inactive TABS for major MG TABS depressio n HYDROCHLOROT 2 tabs HYDROCHLORO 997327 HYDROCHLOROTHI Inactive HIAZIDE 25 every THIAZIDE 25 AZIDE MG TABS morning MG TABS ABILIFY 5 MG one p.o. ABILIFY 5 488170 ARIPIPRAZOLE Inactive TABS q. day MG TABS CIPROFLOXACI Take one CIPROFLOXAC 328135 CIPROFLOXACIN Inactive N HCL 500 MG (1) IN HCL 500 HCL TABS tablet by MG TABS mouth twice a day PROMETHAZINE 1 tab by PROMETHAZIN 844198 PROMETHAZINE Inactive HCL 25 MG mouth E HCL 25 MG HCL TABS every 6 TABS hours as needed PHENTERMINE 1 po q am PHENTERMINE 729480 PHENTERMINE Inactive HCL 37.5 MG for wt. HCL 37.5 MG HCL TABS loss TABS AMARYL 1 MG 1 tab AMARYL 1 MG 743893 GLIMEPIRIDE Inactive TABS twice TABS daily METFORMIN 1 tablet METFORMIN 814302 METFORMIN HCL Inactive HCL 500 MG by mouth HCL 500 MG TABS twice TABS daily SPIRONOLACTO 1 tablet SPIRONOLACT 745188 SPIRONOLACTONE Inactive NE 25 MG TAB by mouth ONE 25 MG daily TAB POTASSIUM 2 capsule POTASSIUM POTASSIUM Inactive CHLORIDE CR by mouth CHLORIDE CR CHLORIDE 10 MEQ CPCR daily 10 MEQ CPCR LISINOPRIL 1 tablet LISINOPRIL 104553 LISINOPRIL Inactive 20 MG TABS by mouth 20 MG TABS daily DIFLUCAN 100 1 tablet DIFLUCAN 879186 FLUCONAZOLE Inactive MG TABS by mouth 100 MG TABS every other day for 2 doses DIFLUCAN 100 1 tablet DIFLUCAN 736833 FLUCONAZOLE Inactive MG TAB by mouth 100 MG TAB daily x 3 days PREDNISONE 2 tablets PREDNISONE 523343 PREDNISONE Inactive 20 MG TAB today, 20 MG TAB then 1 tablet days 2-4 VYVANSE 20 1 tablet VYVANSE 20 LISDEXAMFETAMI Inactive MG ORAL CAPS daily for MG ORAL NE DIMESYLATE binge CAPS eating disorder TRAMADOL HCL 1/2 po TRAMADOL 222421 TRAMADOL HCL Inactive 50 MG TABS tid with HCL 50 MG ES TABS Tylenol prn pain JANUVIA 100 1 tablet JANUVIA 100 SITAGLIPTIN Inactive MG TABS by mouth MG TABS PHOSPHATE daily AMOXICILLIN 2 po BID AMOXICILLIN 472940 AMOXICILLIN Inactive 500 MG CAPS x 10 days 500 MG CAPS PREDNISONE 2 tabs PREDNISONE 663790 PREDNISONE Inactive 20 MG TAB daily for 20 MG TAB 3 days, 1 tab daily for 3 days, 1/2 tab daily for 2 days NITROFURANTO One NITROFURANT 7653540 NITROFURANTOIN Inactive IN MONOHYD capsule OIN MONOHYD MONOHYD MACRO MACRO 100 MG BID for MACRO 100 CAPS UTI MG CAPS PREDNISONE 2 pills PREDNISONE 422824 PREDNISONE Inactive 20 MG TAB daily x 4 20 MG TAB days AZITHROMYCIN 2 po qd x AZITHROMYCI 4596731 AZITHROMYCIN Inactive 250 MG TABS 1 day, [...] HGBA1C - Chemistry sodium, serum 140 mmol/L 980-865 8494/06/03 potassium, serum 3.9 mmol/L 3.5-5.2 chloride, serum [...] 198 10^3/MM^3 10*3/mm3 142-424 Lab Report: Chlamydia/GC APTIMA/[id number] - Lab chlamydia DNA probe NOT DETECTED NOT DETECTED Lab Report: Chlamydia/GC APTIMA/[id number] - Microbiology Neisseria gonorrhoeae DNA probe NOT DETECTED NOT DETECTED Lab Report: Comp. Metabolic Panel, Lipid Panel - Chemistry sodium, serum 136 mmol/L 762-295 3308/01/04 carbon dioxide, venous blood 27.0 mmol/L 21.0-32.0 potassium, serum 4.6 mmol/L 3.5-5.2 chloride, serum 98 mmol/L 98-107 blood glucose 174 mg/dL 65-110 urea nitrogen, blood 12 mg/dL 7-18 creatinine, serum 0.78 mg/dL 0.55-1.30 alanine aminotransferase (SGPT), serum 65 U/L 12-78 aspartate aminotransferase (SGOT), serum 34 U/L 15-37 calcium, serum 8.9 mg/dL 8.5-10.1 bilirubin, serum, total 0.40 mg/dL 0.00-1.00 cholesterol, serum 219 mg/dL 778-449 0840/01/04 triglyceride, serum, fasting 214 mg/dL 30-200 HDL [...] mg/g mg/g{creat} 0-29 sodium, serum 140 mmol/L 695-377 6221/07/21 potassium, serum 3.9 mmol/L 3.5-5.2 chloride, serum [...] mg/dL Encounters Code Encounter Date Provider Facility CPT-03590 Level 3 Est. Patient [facility] 08:58:07 CDT NECK BAND MAKER CPT-61734 Level 3 Est. Patient Faby Marino [facility] 14:40:56 CDT FIELD PROJECT MANAGER CPT-75663 Level 4 Est[facility] BRAKE REPAIRER RAILROAD NECK BAND MAKER CPT-75903 Level 4 Est. Patient Indigo Carlie [facility] 09:51:54 BRAKE REPAIRER RAILROAD CPT-16961 Level 3 Est. Patient Indigo [facility] 18:59:38 CDT CPT-47069 Level 3 Est. Patient Joseph Edwin [facility] 14:42:12 CDT -RHC CPT-06537 Level 3 Est. Patient Joseph Edwin [facility] 22:18:20 CDT -RHC CPT-19788 Level 3 Est. Patient [facility] 16:46:04 CDT -RHC CPT-62172 Level 3 Est. Patient Joseph Edwin [facility] 15:39:53 CDT -RHC CPT-25183 Level 3 Est. Patient Maite Sanchez MD [facility] 13:33:34 CDT -RHC CPT-38229 Level 3 Est. Patient [facility] 11:37:08 CDT -RHC CPT-25890 Level 3 Est. Patient Joseph Edwin [facility] 17:13:29 BRAKE REPAIRER RAILROAD -RHC CPT-04202 Level 3 Est. Patient Joseph Edwin [facility] 18:42:44 CDT CPT-06953 Level 3 Est. Patient [facility] 16:25:39 CDT CPT-11529 Level 3 Est. Patient Casey ARCHIBALD [facility] 09:52:45 CDT -RHC CPT-20649 Level 3 Est. Patient Joseph Pineda [facility] 11:03:29 BRAKE REPAIRER RAILROAD -RHC CPT-75434 Level 3 Est. Patient Joseph Edwin [facility] 11:03:08 BRAKE REPAIRER RAILROAD -RHC CPT-05549 Level 3 Est. Patient Joseph Pineda [facility] 14:33:31 CDT -RHC CPT-08242 Level 3 Est. Patient [facility] 17:05:02 BRAKE REPAIRER RAILROAD -RHC CPT-80708 Level 3 Est. Patient [facility] 17:48:06 BRAKE REPAIRER RAILROAD -RHC CPT-80949 Level 3 Est. Patient [facility] 14:59:22 BRAKE REPAIRER RAILROAD -RHC CPT-39285 Level 3 Est. Patient [facility] - 21:45:56 BRAKE REPAIRER RAILROAD [place] [facility] CPT-93314 Level 3 Est. Patient [facility] 21:29:50 CDT -RHC CPT-66923 Level 3 Est. Patient [facility] 12:41:09 CDT -RHC Procedures Code Procedure Name Date Entry Date Standard Description CPT-31430 Chest 2V Frontal and Lat 14:47:43 CDT CPT-JTINJ Asp/Joint Injection 09:51:53 BRAKE REPAIRER RAILROAD CPT-OV Office Visit 17:39:05 CDT CPT-OV Office Visit 15:19:50 CDT CPT-22632 Sono transvag pelvis non OB uterus ovaries cervix 18:04:34 CDT CPT-48406 Venipuncture Draw Fee 08:55:49 BRAKE REPAIRER RAILROAD
--- OUTSIDE RECORDS SUMMARY | 2016-11-20 13:18 | External Medical Summary | Clinical Summary ---
:1965 Author Organization [facility] Address [address] [place] [address] Phone Allergies, Adverse Reactions, Alerts Allergy Name Reaction Description Start Date Severity Status Provider NKDA Critical No Longer Indigo Yokum COLLEGE RECRUITER Active NKDA Critical Inactive Adrianna Elder Conditions [...] 401.9 Active Joseph Pineda Unspecified 05/24 Farooq CORDERO essential hypertension FATIGUE 780.79 Resolved Indigo Other malaise 05/24 07/02 Yokum COLLEGE RECRUITER and fatigue SLEEP APNEA, 327.23 Active Joseph [...] Resolved Indigo Hypopotassemia MILD 10/29 07/02 Yo COLLEGE RECRUITER Diabetes, Type 250.00 Inactive Joseph Pineda Diabetes 2 06/27 06/27 Farooq DO mellitus without mention of complication, type II or unspecified type, not stated as uncontrolled Diabetes 250.02 Active Indigo Diabetes mellitus, type 06/27um COLLEGE RECRUITER mellitus II, without mention uncontrolled of complication, [...] Resolved Indigo Routine gynecological 12/14 07/02 Yo COLLEGE RECRUITER gynecological examination examination Postmenopausal 627.1 Resolved Indigo Postmenopausal bleeding 12/14 07/02 Youm COLLEGE RECRUITER bleeding Screening for V76.51 Resolved Indigo Screening for malignant 12/26 07/02 Yokum COLLEGE RECRUITER malignant neoplasms of neoplasms of colon colon Insomnia, 307.42 Active Indigo 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 COLLEGE RECRUITER disorder of initiating or maintaining sleep Establish care V68.89 Resolved Indigo Encounters for or get 01/16 07/02 Yo COLLEGE RECRUITER other specified acquainted administrative visit purpose Weakness, left 342.90 Active Indigo Hemiplegia, side of body 06/20 06/20 Yokum COLLEGE RECRUITER unspecified, affecting unspecified side TIA 435.9 Active Indigo Unspecified 06/20 07/02 Yokum COLLEGE RECRUITER transient cerebral ischemia Knee pain, 719.46 Active Indigo Pain in joint bilateral 06/20 07/02 Yokum COLLEGE RECRUITER involving lower leg Bronchitis 490 Active Jillina Bronchitis, not 07/23 07/23 Frazell specified as COLLEGE RECRUITER acute or chronic ABNORMAL VAGINAL ICD-626.9 Inactive Maite C Laura BLEEDING PhD SCABIES ICD-133.0 Inactive Maite C Laura MD PhD FATIGUE ICD-780.79 Inactive Indigo Yokum COLLEGE RECRUITER OTH GENERAL ICD-V70.3 Inactive Maite C Laura MEDICAL MD PhD EXAMINATION ADMIN PURPOSES OTHER ABNORMAL ICD-790.29 Inactive Maite C Laura GLUCOSE MD PhD ACUTE BRONCHITIS ICD-466.0 Inactive Maite C Laura PhD HYPOKALEMIA, MILD ICD-276.8 Inactive Indigo Yokum COLLEGE RECRUITER Sinusitis, ICD-461.1 Inactive Ismael Coyne frontal, acute Amandeep ONEAL Laryngitis, acute ICD-464.00 Inactive Ismael Coyne Amandeep ONEAL Routine ICD-V72.31 Inactive Indigo Yokum gynecological COLLEGE RECRUITER examination Postmenopausal ICD-627.1 Inactive Indigo Yokum 2015 bleeding COLLEGE RECRUITER Screening for ICD-V76.51 Inactive Indigo Yokum 2015 malignant COLLEGE RECRUITER neoplasms of colon Establish care or ICD-V68.89 Inactive Indigo Yokum get acquainted COLLEGE RECRUITER visit Medication List Medication Instructions Start Stop Generic NDC Status Provider Patient Date Date Name Instruction METOPROLOL 1 tab po METOPROLOL 87365403400 Active Sherice Active TARTRATE 25 MG bid TARTRATE Wilfredo RMA TABS AZITHROMYCIN 2 po qd 2 AZITHROMYCIN 30428310026 No Jillina Active 250 MG TABS x 1 day, 0 Longer Frazell then 1 1 Active COLLEGE RECRUITER po qd x 6 4 days / 0 3 / 2 6 PREDNISONE 20 2 pills 2 PREDNISONE 09924894028 No Jillina Active MG TAB daily x 0 Longer Frazell 4 days 1 Active COLLEGE RECRUITER 6 / 0 3 / 2 5 PIOGLITAZONE take one PIOGLITAZONE 71413562624 Active Maliheh Active HCL 30 MG ORAL a day HCL 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 JANUVIA 100 MG 1 tablet 2 SITAGLIPTIN 34172187011 No Indigo Active TABS by mouth 0 PHOSPHATE Longer Yokum daily 1 Active COLLEGE RECRUITER 6 / 0 / 6 ATORVASTATIN 1 pill ATORVASTATIN 23119141417 Active Indigo Active CALCIUM 10 MG by mouth CALCIUM Yokum TABS nightly, COLLEGE RECRUITER for choleste rol TROKENDI XR 100 1 tab TOPIRAMATE 44130328096 Active Indigo Active MG ORAL daily Yokum [id number] COLLEGE RECRUITER ASPIRIN 81 MG 1 po qd ASPIRIN 35261559734 Active Indigo Active ORAL TABS Yokum COLLEGE RECRUITER NITROFURANTOIN One 2 NITROFURANTOIN 84710289201 No Indigo Active MONOHYD MACRO capsule 0 MONOHYD MACRO Longer Yokum 100 MG CAPS BID for 1 Active COLLEGE RECRUITER UTI 6 / 0 3 METFORMIN HCL 2 METFORMIN HCL 23720521991 Active Indigo Active 500 MG TB24 tablets Yokum by mouth COLLEGE RECRUITER twice daily TRAMADOL HCL 50 1/2 po 2 TRAMADOL HCL 44366098756 No Jillina Active MG TABS tid with 0 Longer Frazell ES 1 Active COLLEGE RECRUITER Tylenol 5 prn pain / 0 / 2 VYVANSE 20 MG 1 tablet 2 LISDEXAMFETAMIN 83844636634 No Jillina Active ORAL CAPS daily 0 E DIMESYLATE Longer Frazell for 1 Active COLLEGE RECRUITER binge 5 eating / disorder 0 8 / 2 LASIX 20 MG TAB 2 tablet FUROSEMIDE 59163869826 Active Indigo Active by mouth Yokum daily COLLEGE RECRUITER CELEBREX 200 MG 1 tablet CELECOXIB 37537827889 Active Joseph W Active CAPS by mouth Farooq DO daily with meals PREDNISONE 20 2 2 PREDNISONE 51907818443 No Joseph W Active MG TAB tablets 0 Longer Farooq DO today, 1 Active then 1 5 tablet / days 2-4 0 3 DIFLUCAN 100 MG 1 tablet 2 FLUCONAZOLE 90674639384 No Joseph W Active TAB by mouth 0 Longer Farooq DO daily x 1 Active 3 days 5 / 0 3 AMARYL 1 MG 1 tablet GLIMEPIRIDE 07030640234 Active Joseph W Active ORAL TABS orally Farooq DO twice daily DIFLUCAN 100 MG 1 tablet 2 FLUCONAZOLE 84116897362 No Joseph W Active TABS by mouth 0 Longer Farooq DO every 1 Active other 5 day for / 2 doses 0 1 / 2 3 ZOFRAN 4 MG 1 po ONDANSETRON HCL 52386737137 Active Joseph W Active TABS q6hr PRN Farooq DO Nausea PREDNISONE 20 2 tabs 2 PREDNISONE 15396048147 No Joseph W Active MG TAB daily 0 Longer Farooq DO for 3 1 Active days, 1 4 tab / daily 1 for 3 0 days, / 1/2 tab 2 daily 5 for 2 days AMOXICILLIN 500 2 po BID 2 AMOXICILLIN 27778280431 No Maite C Active MG CAPS x 10 0 Longer Madril days 1 Active PhD 0 / 2 0 LISINOPRIL 20 1 tablet 2 LISINOPRIL 98722353167 No Maite C Active MG TABS by mouth 0 Longer Madril daily 1 Active PhD 0 / 0 POTASSIUM 2 2 POTASSIUM 29155260352 No Joseph Pineda Active CHLORIDE CR 10 capsule 0 CHLORIDE Longer Farooq DO MEQ CPCR by mouth 1 Active daily 4 / 0 8 / 2 9 SPIRONOLACTONE 1 tablet 2 SPIRONOLACTONE 41552212653 No Joseph Pineda Active 25 MG TAB by mouth 0 Longer Farooq DO daily 1 Active 4 / 0 8 2 9 METFORMIN HCL 1 2 METFORMIN HCL 05612468931 No Joseph W Active 500 MG TABS tablet 0 Longer Farooq DO by mouth 1 Active twice 4 daily / 0 8 / 2 9 AMARYL 1 MG 1 tab 2 GLIMEPIRIDE 21364781045 No Joseph W Active TABS twice 0 Longer Farooq DO daily 1 Active 4 / 0 8 / 2 9 PHENTERMINE HCL 1 po q 2 PHENTERMINE HCL 57898476669 No Joseph W Active 37.5 MG TABS am for 0 Longer Farooq DO wt. loss 1 Active 3 / 1 2 / 2 3 PROMETHAZINE 1 tab by 2 PROMETHAZINE 86761613998 No Joseph W Active HCL 25 MG TABS mouth 0 HCL Longer Farooq DO every 6 1 Active hours as 3 needed / 0 9 / 0 9 CIPROFLOXACIN Take one 2 CIPROFLOXACIN 26645719840 No Joseph W Active HCL 500 MG TABS (1) 0 HCL Longer Farooq DO tablet 1 Active by mouth 3 twice a / day 0 9 / 0 9 ABILIFY 5 MG one p.o. 2 ARIPIPRAZOLE 44668643730 No Joseph W Active TABS q. day 0 Longer Farooq DO 1 Active 3 / 0 9 / 0 9 HYDROCHLOROTHIA 2 tabs 2 HYDROCHLOROTHIA 31937793762 No Joseph W Active ZIDE 25 MG TABS every 0 ZIDE Longer Farooq DO morning 1 Active 3 / 0 6 / 2 7 ABILIFY 2 MG 1 po q 2 ARIPIPRAZOLE 26160723310 No Joseph W Active TABS hs for 0 Longer Farooq DO major 1 Active depressi 3 on / 0 5 / 0 7 ADIPEX-P 37.5 1/2 tab 2 PHENTERMINE HCL 30336090744 No Casey Active MG CAPS po q am 0 Longer Leonarda for 1 Active PA weight 3 loss / 0 5 / 0 1 CIPRO 500 MG 1 tablet 2 CIPROFLOXACIN 63945048447 No Casey Active TAB by mouth 0 HCL Longer Leonarda twice 1 Active PA daily 3 / 0 5 / 0 1 NECON 1/35 (28) 1 po 2 NORETHINDRONE-E 48940115093 No Casey Active 1-35 MG-MCG daily 0 TH ESTRADIOL Longer Jupiter TABS 1 Active PA 3 / 0 5 / 0 1 TRAMADOL HCL 50 1 po tid 2 TRAMADOL HCL 25077284403 No Casey Active MG TABS with ES 0 Longer Tylenol 1 Active PA 3 / 0 5 / 0 1 FLUCONAZOLE 100 one p.o. 2 FLUCONAZOLE 60580297740 No Casey Active MG TABS q. day 2 0 Longer Jupiter days 1 Active PA 3 / 0 5 / 0 1 POTASSIUM 1 2 POTASSIUM 03590052451 No Casey Active CHLORIDE CR 10 capsule 0 CHLORIDE Longer MEQ CPCR by mouth 1 Active PA daily 3 / 0 5 / 0 1 IMIPRAMINE HCL Take 6 IMIPRAMINE HCL 84998254693 Active Joseph W Active 50 MG TABS tablets Farooq DO by mouth at bedtime DIFLUCAN 100 MG 1 tablet 2 FLUCONAZOLE 54453107894 No Joseph W Active TAB by mouth 0 Longer Farooq DO daily 1 Active 2 / 0 2 / 2 4 VERAPAMIL HCL 2 po bid VERAPAMIL HCL 58151273360 Active Joseph W Active CR 120 MG TAB Farooq DO CR PERMETHRIN 5 % apply 2 PERMETHRIN 78163273880 No Joseph W Active CREA neck to 0 Longer Farooq DO toes 1 Active tonight 2 and then / rinse 0 off in 1 morning. / repeat 2 at 7 0 days SEROQUEL XR 50 one p.o. 2 QUETIAPINE 67536884712 No Joseph W Active MG [id number] q. 0 FUMARATE Longer Farooq DO evening 1 Active 2 / 0 1 / 2 0 TRAMADOL HCL 50 1-2 2 TRAMADOL HCL 27971184895 No Joseph W Active MG TABS tablets 0 Longer Farooq DO every 1 Active 6-8 2 hours as / needed 0 for pain 1 / 2 0 ALPRAZOLAM 3 MG one p.o. ALPRAZOLAM 40570572068 Active Indigo Active [id number] q.h.s. Yokum COLLEGE RECRUITER ALPRAZOLAM XR Take 1 2 ALPRAZOLAM 27968902869 No Joseph W Active [id number] tablet 0 [id number] Longer Farooq DO by mouth 1 Active at 1 bedtime / 1 1 / 2 9 DIFLUCAN 100 MG 1 tablet 2 FLUCONAZOLE 21288503362 No Joseph W Active TAB by mouth 0 Longer Farooq DO daily 1 Active 0 / 0 6 AMBIEN 10 MG 1 tab by ZOLPIDEM 74166827881 Active Afsaneh Active TAB mouth at TARTRATE Gericke, bedtime MA as needed for sleep DIFLUCAN 100 1 tablet DIFLUCAN 313911 FLUCONAZOLE Inactive MG TAB by mouth 100 MG TAB daily ALPRAZOLAM Take 1 ALPRAZOLAM ALPRAZOLAM Inactive XR [id number] tablet by XR [id number] mouth at [id number] bedtime TRAMADOL HCL 1-2 TRAMADOL 968768 TRAMADOL HCL Inactive 50 MG TABS tablets HCL 50 MG every 6-8 TABS hours as needed for pain SEROQUEL XR one p.o. SEROQUEL XR QUETIAPINE Inactive 50 MG q. 50 MG FUMARATE [id number] evening [id number] PERMETHRIN 5 apply PERMETHRIN 553859 PERMETHRIN Inactive % CREA neck to 5 % CREA toes tonight and then rinse off in morning. repeat at 7 days DIFLUCAN 100 1 tablet DIFLUCAN 129896 FLUCONAZOLE Inactive MG TAB by mouth 100 MG TAB daily POTASSIUM 1 capsule POTASSIUM POTASSIUM Inactive CHLORIDE CR by mouth CHLORIDE CR CHLORIDE 10 MEQ CPCR daily 10 MEQ CPCR FLUCONAZOLE one p.o. FLUCONAZOLE 849765 FLUCONAZOLE Inactive 100 MG TABS q. day 2 100 MG TABS days TRAMADOL HCL 1 po tid TRAMADOL 188667 TRAMADOL HCL Inactive 50 MG TABS with ES HCL 50 MG Tylenol TABS NECON 1/35 1 po NECON 35 NORETHINDRONE- Inactive (28) 1-35 daily (28) 1-35 ETH ESTRADIOL MG-MCG TABS MG-MCG TABS CIPRO 500 MG 1 tablet CIPRO 500 453987 CIPROFLOXACIN Inactive TAB by mouth MG TAB HCL twice daily ADIPEX-P 1/2 tab ADIPEX-P 819209 PHENTERMINE Inactive 37.5 MG CAPS po q am 37.5 MG HCL for CAPS weight loss ABILIFY 2 MG 1 po q hs ABILIFY 2 573416 ARIPIPRAZOLE Inactive TABS for major MG TABS depressio n HYDROCHLOROT 2 tabs HYDROCHLORO 777816 HYDROCHLOROTHI Inactive HIAZIDE 25 every THIAZIDE 25 AZIDE MG TABS morning MG TABS ABILIFY 5 MG one p.o. ABILIFY 5 919353 ARIPIPRAZOLE Inactive TABS q. day MG TABS CIPROFLOXACI Take one CIPROFLOXAC 311887 CIPROFLOXACIN Inactive N HCL 500 MG (1) IN HCL 500 HCL TABS tablet by MG TABS mouth twice a day PROMETHAZINE 1 tab by PROMETHAZIN 950969 PROMETHAZINE Inactive HCL 25 MG mouth E HCL 25 MG HCL TABS every 6 TABS hours as needed PHENTERMINE 1 po q am PHENTERMINE 709943 PHENTERMINE Inactive HCL 37.5 MG for wt. HCL 37.5 MG HCL TABS loss TABS AMARYL 1 MG 1 tab AMARYL 1 MG 430745 GLIMEPIRIDE Inactive TABS twice TABS daily METFORMIN 1 tablet METFORMIN 389083 METFORMIN HCL Inactive HCL 500 MG by mouth HCL 500 MG TABS twice TABS daily SPIRONOLACTO 1 tablet SPIRONOLACT 651697 SPIRONOLACTONE Inactive NE 25 MG TAB by mouth ONE 25 MG daily TAB POTASSIUM 2 capsule POTASSIUM POTASSIUM Inactive CHLORIDE CR by mouth CHLORIDE CR CHLORIDE 10 MEQ CPCR daily 10 MEQ CPCR LISINOPRIL 1 tablet LISINOPRIL 340282 LISINOPRIL Inactive 20 MG TABS by mouth 20 MG TABS daily DIFLUCAN 100 1 tablet DIFLUCAN 955060 FLUCONAZOLE Inactive MG TABS by mouth 100 MG TABS every other day for 2 doses DIFLUCAN 100 1 tablet DIFLUCAN 165594 FLUCONAZOLE Inactive MG TAB by mouth 100 MG TAB daily x 3 days PREDNISONE 2 tablets PREDNISONE 177415 PREDNISONE Inactive 20 MG TAB today, 20 MG TAB then 1 tablet days 2-4 VYVANSE 20 1 tablet VYVANSE 20 LISDEXAMFETAMI Inactive MG ORAL CAPS daily for MG ORAL NE DIMESYLATE binge CAPS eating disorder TRAMADOL HCL 1/2 po TRAMADOL 790634 TRAMADOL HCL Inactive 50 MG TABS tid with HCL 50 MG ES TABS Tylenol prn pain JANUVIA 100 1 tablet JANUVIA 100 SITAGLIPTIN Inactive MG TABS by mouth MG TABS PHOSPHATE daily AMOXICILLIN 2 po BID AMOXICILLIN 283440 AMOXICILLIN Inactive 500 MG CAPS x 10 days 500 MG CAPS PREDNISONE 2 tabs PREDNISONE 663090 PREDNISONE Inactive 20 MG TAB daily for 20 MG TAB 3 days, 1 tab daily for 3 days, 1/2 tab daily for 2 days NITROFURANTO One NITROFURANT 3055852 NITROFURANTOIN Inactive IN MONOHYD capsule OIN MONOHYD MONOHYD MACRO MACRO 100 MG BID for MACRO 100 CAPS UTI MG CAPS PREDNISONE 2 pills PREDNISONE 283925 PREDNISONE Inactive 20 MG TAB daily x 4 20 MG TAB days AZITHROMYCIN 2 po qd x AZITHROMYCI 0995301 AZITHROMYCIN Inactive 250 MG TABS 1 day, N 250 MG then 1 po TABS qd x 4 days Advance Directives Directive Description Start Date PERMISSION TO SHARE Vital Signs Date Name Value Unit Range Description blood pressure, diastolic - 8462-4 60 mm[Hg] [...] HGBA1C - Chemistry sodium, serum 140 mmol/L 069-669 2511/04/13 potassium, serum 3.9 mmol/L 3.5-5.2 chloride, serum [...] 198 10^3/MM^3 10*3/mm3 142-424 Lab Report: Chlamydia/GC APTIMA/[id number] - Lab chlamydia DNA probe NOT DETECTED NOT DETECTED Lab Report: Chlamydia/GC APTIMA/[id number] - Microbiology Neisseria gonorrhoeae DNA probe NOT DETECTED NOT DETECTED Lab Report: Comp. Metabolic Panel, Lipid Panel - Chemistry sodium, serum 136 mmol/L 602-775 1696/01/04 carbon dioxide, venous blood 27.0 mmol/L 21.0-32.0 potassium, serum 4.6 mmol/L 3.5-5.2 chloride, serum 98 mmol/L 98-107 blood glucose 174 mg/dL 65-110 urea nitrogen, blood 12 mg/dL 7-18 creatinine, serum 0.78 mg/dL 0.55-1.30 alanine aminotransferase (SGPT), serum 65 U/L 12-78 aspartate aminotransferase (SGOT), serum 34 U/L 15-37 calcium, serum 8.9 mg/dL 8.5-10.1 bilirubin, serum, total 0.40 mg/dL 0.00-1.00 cholesterol, serum 219 mg/dL 190-191 3838/01/04 triglyceride, serum, fasting 214 mg/dL 30-200 HDL [...] mg/g mg/g{creat} 0-29 sodium, serum 140 mmol/L 037-301 0043/07/21 potassium, serum 3.9 mmol/L 3.5-5.2 chloride, serum [...] Yes Encounters Code Encounter Date Provider Facility CPT-33651 Level 3 Est. Patient Faby Marino [facility] 14:40:56 CDT [facility] CPT-88311 Level 4 Est. Patient Arnold Berrios [facility] 17:29:53 NUCLEAR CRITICALITY SAFETY ENGINEER [facility] CPT-80728 Level 4 Est. Patient [facility] 09:51:54 NUCLEAR CRITICALITY SAFETY ENGINEER CPT-32473 Level 3 Est. [facility]38 [facility] CPT-63773 Level 3 Est. Patient Joseph Trivedi DO [facility] 14:42:12 CDT -[facility] CPT-99026 Level 3 Est. Patient Joseph W [facility] 22:18:20 CDT -[facility] CPT-84017 Level 3 Est. Patient Joseph Pineda [facility] 16:46:04 CDT -[facility] CPT-69456 Level 3 Est. Patient Joseph Pineda [facility] 15:39:53 CDT -[facility] CPT-46887 Level 3 Est. Patient Maite Sanchez MD PhD [facility] 13:33:34 CDT -[facility] CPT-42894 Level 3 Est. Patient Joseph Pineda [facility] 11:37:08 CDT -[facility] CPT-35787 Level 3 Est. Patient Joseph Edwin [facility] 17:13:29 NUCLEAR CRITICALITY SAFETY ENGINEER -[facility] CPT-26567 Level 3 Est. Patient Joseph Edwin [facility] 18:42:44 CDT CPT-73948 Level 3 Est. Patient Ripley Edwin [facility] 16:25:39 CDT CPT-85230 Level 3 Est. Patient Casey Brower [facility] 09:52:45 CDT -[facility] CPT-17117 Level 3 Est. Patient Joseph Edwin [facility] 11:03:29 NUCLEAR CRITICALITY SAFETY ENGINEER -[facility] CPT-09888 Level 3 Est. Patient Joseph Edwin [facility] 11:03:08 NUCLEAR CRITICALITY SAFETY ENGINEER -[facility] CPT-85425 Level 3 Est. Patient Joseph Edwin [facility] 14:33:31 CDT -[facility] CPT-32375 Level [address] [facility] 17:05:02 NUCLEAR CRITICALITY SAFETY ENGINEER -[facility] CPT-55463 Level [address] [facility] 17:48:06 NUCLEAR CRITICALITY SAFETY ENGINEER -[facility] CPT-62027 Level 3 Est. Patient Ripley Edwin [facility] 14:59:22 NUCLEAR CRITICALITY SAFETY ENGINEER -[facility] CPT-29606 Level [address] [facility] - 21:45:56 NUCLEAR CRITICALITY SAFETY ENGINEER Jose [facility] CPT-91535 Level 3 Est. Patient Joseph Pineda [facility] 21:29:50 CDT -[facility] CPT-27836 Level 3 Est. Patient Joseph Trivedi [facility] 12:41:09 CDT -[facility] Procedures Code Procedure Name Date Entry Date Standard Description CPT-62712 Chest 2V Frontal and Lat 14:47:43 CDT CPT-JTINJ Asp/Joint Injection 09:51:53 NUCLEAR CRITICALITY SAFETY ENGINEER CPT-OV Office Visit 17:39:05 CDT CPT-OV Office Visit 15:19:50 CDT CPT-61652 Sono transvag pelvis non OB uterus ovaries cervix 18:04:34 CDT CPT-11502 Venipuncture Draw Fee 08:55:49 NUCLEAR CRITICALITY SAFETY ENGINEER
--- OUTSIDE RECORDS SUMMARY | 2016-11-20 13:19 | External Medical Summary | Clinical Summary ---
:1965 Author Organization [facility] Address [address] [address] Phone Allergies, Adverse Reactions, Alerts Allergy Name Reaction Description Start Date Severity Status Provider VERSED States jsut about Critical Active Gloria Saavedra CHRONIC SPECIALIST killed her NKDA Critical Active Indigo Yokum CERTIFIED ALCOHOL AND DRUG COUNSELOR NKDA Critical No Longer Indigo Yokum CERTIFIED ALCOHOL AND DRUG COUNSELOR Active NKDA Critical Inactive Adrianna Elder Conditions or Problems Problem Name Problem Onset Status Entry Provider Comment Standard Annotate Code Date Date Description ABNORMAL 626.9 Resolved Maite Gutierrez Unspecified VAGINAL Laura ONEAL disorders of BLEEDING PhD menstruation and other abnormal bleeding from female genital tract DEPRESSION, 296.33 Inactive Joseph Pineda Major depressive ACUTE, Farooq DO disorder, RECURRENT recurrent episode, severe degree, without mention of psychotic behavior Depression, 311 Active Indigo Depressive chronic 09/20 Yokum CERTIFIED ALCOHOL AND DRUG COUNSELOR disorder, not elsewhere classified SCABIES 133.0 Resolved Maite Gutierrez Scabies 06/23 Laura ONEAL PhD HYPERTENSION 401.9 Active Joseph Pineda Unspecified 05/24 Farooq DO essential hypertension FATIGUE 780.79 Resolved Indigo Other malaise 05/24 07/02 Yokum CERTIFIED ALCOHOL AND DRUG COUNSELOR and fatigue SLEEP APNEA, 327.23 Active Joseph Pineda Obstructive OBSTRUCTIVE, 06/27 06/27 Farooq DO sleep apnea MILD (adult) (pediatric) OVERWEIGHT 278.02 Inactive Joseph Pineda Overweight 06/28 06/28 Farooq DO Obesity 278.00 Active Indigo Obesity, 06/28 10/18 Yokum CERTIFIED ALCOHOL AND DRUG COUNSELOR unspecified OT GENERAL V70.3 Resolved Maite C Other general MEDICAL Laura ONEAL medical EXAMINATION PhD examination for ADMIN administrative PURPOSES purposes OTHER 790.29 Resolved Maite C Other abnormal ABNORMAL 05/20 Laura ONEAL glucose GLUCOSE PhD ACUTE 466.0 Resolved Maite Gutierrez Acute bronchitis BRONCHITIS 09/02 Laura ONEAL PhD DEPENDENT 782.3 Resolved Indigo Edema EDEMA, LEGS, 10/29 10/18 Yokum CERTIFIED ALCOHOL AND DRUG COUNSELOR BILATERAL HYPOKALEMIA, 276.8 Resolved Indigo Hypopotassemia MILD 10/29 07/02 Yo CERTIFIED ALCOHOL AND DRUG COUNSELOR Diabetes, 250.00 Inactive Joseph Pineda Diabetes Type 2 06/27 06/27 Farooq DO mellitus without mention of complication, type II or unspecified type, not stated as uncontrolled Diabetes 250.02 Resolved Indigo Diabetes mellitus, 06/27 10/18 Yokum CERTIFIED ALCOHOL AND DRUG COUNSELOR mellitus without type II, mention of uncontrolled [...] Resolved Indigo Routine gynecological 12/14 07/02 Yo CERTIFIED ALCOHOL AND DRUG COUNSELOR gynecological examination examination Postmenopausa 627.1 Resolved Indigo Postmenopausal l bleeding 12/14 07/02 Yokum CERTIFIED ALCOHOL AND DRUG COUNSELOR bleeding Screening for V76.51 Resolved Indigo Screening for malignant 12/26 07/02 Yokum CERTIFIED ALCOHOL AND DRUG COUNSELOR malignant neoplasms of neoplasms of colon colon Insomnia, 307.42 Active 2015/0 Indigo 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 CERTIFIED ALCOHOL AND DRUG COUNSELOR disorder of initiating or maintaining sleep Establish V68.89 Resolved Indigo Encounters for care or get 01/16 07/02 Yokum CERTIFIED ALCOHOL AND DRUG COUNSELOR other specified acquainted administrative visit purpose Weakness, 342.90 Resolved Indigo Hemiplegia, left side of 06/20 10/18 Yokum CERTIFIED ALCOHOL AND DRUG COUNSELOR unspecified, body affecting unspecified side TIA 435.9 Active Indigo Unspecified 06/20 07/02 Yokum CERTIFIED ALCOHOL AND DRUG COUNSELOR transient cerebral ischemia Knee pain, 719.46 Active Indigo Pain in joint bilateral 06/20 10/18 Yokum CERTIFIED ALCOHOL AND DRUG COUNSELOR involving lower leg Bronchitis 490 Resolved Indigo Bronchitis, not 07/23 10/18 Yokum CERTIFIED ALCOHOL AND DRUG COUNSELOR specified as acute or chronic Diabetes 357.2 Active Maliheh Polyneuropathy mellitus, 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 y Knee pain, 719.46 Resolved Indigo Pain in joint right 06/20 09/20 Yokum CERTIFIED ALCOHOL AND DRUG COUNSELOR involving lower leg Jesi 112.3 Resolved Indigo Candidiasis of intertrigo 10/09 09/20 Yokum CERTIFIED ALCOHOL AND DRUG COUNSELOR skin and nails Hyperlipidemi 272.4 Active Anne Other and a 12/24 12/24 Neil unspecified RMA hyperlipidemia Incontinence, 788.33 Resolved Indigo Mixed mixed, 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 CERTIFIED ALCOHOL AND DRUG COUNSELOR incontinence urge/stress (female) (male) Female stress 625.6 Active Yury Monaco Stress incontinence 01/03 01/03 Cy patel MD female Vaginal odor 623.8 Resolved Indigo Other specified 05/28 09/20 Yokum CERTIFIED ALCOHOL AND DRUG COUNSELOR noninflammatory disorders of vagina Urinary tract 599.0 Resolved Indigo Urinary tract infection 05/28 09/20 Yokum CERTIFIED ALCOHOL AND DRUG COUNSELOR infection, site not specified Urine odor 791.9 Resolved Indigo Other 05/28 09/20 Yokum CERTIFIED ALCOHOL AND DRUG COUNSELOR nonspecific findings on examination of urine Unspecified Resolved Indigo dyspareunia 08/19 09/20 Yokum CERTIFIED ALCOHOL AND DRUG COUNSELOR Depression Resolved Indigo 09/20 Yokum CERTIFIED ALCOHOL AND DRUG COUNSELOR Anxiety Active Indigo Anxiety state, Disorder 08/26 CERTIFIED ALCOHOL AND DRUG COUNSELOR unspecified ABNORMAL VAGINAL ICD-626.9 Inactive Maite C Laura BLEEDING PhD SCABIES ICD-133.0 Inactive Maite C Laura PhD FATIGUE ICD-780.79 Inactive Indigo Yokum CERTIFIED ALCOHOL AND DRUG COUNSELOR OTH GENERAL ICD-V70.3 Inactive Maite C Laura MEDICAL MD PhD EXAMINATION ADMIN PURPOSES OTHER ABNORMAL ICD-790.29 Inactive Maite C Ronyril GLUCOSE PhD ACUTE BRONCHITIS ICD-466.0 Inactive Maite C Laura PhD DEPENDENT EDEMA, ICD-782.3 Inactive Indigo Yokum LEGS, BILATERAL CERTIFIED ALCOHOL AND DRUG COUNSELOR HYPOKALEMIA, MILD ICD-276.8 Inactive Indigo Yokum CERTIFIED ALCOHOL AND DRUG COUNSELOR Diabetes mellitus, ICD-250.02 Inactive Indigo Yokum type II, CERTIFIED ALCOHOL AND DRUG COUNSELOR uncontrolled Sinusitis, ICD-461.1 Inactive Ismael Coyne frontal, acute Amandeep ONEAL Laryngitis, acute ICD-464.00 Inactive Ismael Coyne Amandeep ONEAL Routine ICD-V72.31 Inactive Indigo Yokum gynecological CERTIFIED ALCOHOL AND DRUG COUNSELOR examination Postmenopausal ICD-627.1 Inactive Indigo Yokum 2015 bleeding CERTIFIED ALCOHOL AND DRUG COUNSELOR Screening for ICD-V76.51 Inactive Indigo Yokum 2015 malignant CERTIFIED ALCOHOL AND DRUG COUNSELOR neoplasms of colon Establish care or ICD-V68.89 Inactive Indigo Yokum get acquainted CERTIFIED ALCOHOL AND DRUG COUNSELOR visit Weakness, left ICD-342.90 Inactive Indigo Yokum side of body CERTIFIED ALCOHOL AND DRUG COUNSELOR Bronchitis ICD-490 Inactive Indigo Yokum CERTIFIED ALCOHOL AND DRUG COUNSELOR Knee pain, right ICD-719.46 Inactive Indigo Yokum CERTIFIED ALCOHOL AND DRUG COUNSELOR Jesi intertrigo ICD-112.3 Inactive Indigo Yokum CERTIFIED ALCOHOL AND DRUG COUNSELOR Incontinence, ICD-788.33 Inactive Indigo Yokum 2016 mixed, urge/stress CERTIFIED ALCOHOL AND DRUG COUNSELOR Vaginal odor ICD-623.8 Inactive Indigo Yokum 09/20 CERTIFIED ALCOHOL AND DRUG COUNSELOR Urinary tract ICD-599.0 Inactive Indigo Yokum 09/20 infection CERTIFIED ALCOHOL AND DRUG COUNSELOR Urine odor ICD-791.9 Inactive Indigo Yokum CERTIFIED ALCOHOL AND DRUG COUNSELOR Unspecified Inactive Indigo Yokum dyspareunia CERTIFIED ALCOHOL AND DRUG COUNSELOR Depression Inactive Indigo Yokum CERTIFIED ALCOHOL AND DRUG COUNSELOR Medication List Medication Instructions Start Stop Generic NDC Status Provider Patient Date Date Name Instruction ALPRAZOLAM 3 one p.o. ALPRAZOLAM 21143237987 Active Indigo Active MG [id number] q.h.s. Yokum CERTIFIED ALCOHOL AND DRUG COUNSELOR ABILIFY 10 MG Take one ARIPIPRAZOLE 55848050216 Active Indigo Active ORAL TABS tablet Yokum daily for CERTIFIED ALCOHOL AND DRUG COUNSELOR depression CELEBREX 200 1 tablet 2 CELECOXIB 52999446382 No Indigo Active MG CAPS by mouth 0 Longer Yokum daily with 1 Active CERTIFIED ALCOHOL AND DRUG COUNSELOR meals 7 / 0 4 / 2 4 TROKENDI XR 1 tab by 2 TOPIRAMATE 27209608469 No Indigo Active 100 MG ORAL mouth 0 Longer Yokum [id number] daily 1 Active CERTIFIED ALCOHOL AND DRUG COUNSELOR 7 0 4 VESICARE 10 MG 1 pill by SOLIFENACIN 55357316034 Active J Carlos Enrique Active TABS mouth SUCCINATE Ben[place] daily for MD overactive bladder CIPRO 250 MG 1 tablet 2 CIPROFLOXACIN 56743210826 No Indigo Active TAB by mouth 0 HCL Longer Yokum twice 1 Active CERTIFIED ALCOHOL AND DRUG COUNSELOR daily 7 METFORMIN HCL 2 tablets 2 METFORMIN HCL 46560983214 No Indigo Active 500 MG TB24 by mouth 0 Longer Yokum twice 1 Active CERTIFIED ALCOHOL AND DRUG COUNSELOR daily 2 AMARYL 1 MG 1 tablet 2 GLIMEPIRIDE 28240661380 No Indigo Active ORAL TABS orally 0 Longer Yokum twice 1 Active CERTIFIED ALCOHOL AND DRUG COUNSELOR daily 2 NYSTATIN apply to NYSTATIN 65948104014 Active Indigo Active 628764 UNIT/GM rash TID Yokum CREA PRN CERTIFIED ALCOHOL AND DRUG COUNSELOR METOPROLOL 1 tab po METOPROLOL 73132808451 Active Indigo Active TARTRATE 25 MG bid TARTRATE Yokum TABS CERTIFIED ALCOHOL AND DRUG COUNSELOR AZITHROMYCIN 2 po qd x 2 AZITHROMYCIN 62419034727 No Jillina Active 250 MG TABS 1 day, 0 Longer Frazell then 1 po 1 Active CERTIFIED ALCOHOL AND DRUG COUNSELOR qd x 4 6 days / 0 3 / 2 6 PREDNISONE 20 2 pills 2 PREDNISONE 02740461877 No Jillina Active MG TAB daily x 4 0 Longer Frazell days 1 Active CERTIFIED ALCOHOL AND DRUG COUNSELOR 6 / 0 3 / 2 5 PIOGLITAZONE take one a PIOGLITAZONE 11750443121 Active Maliheh Active HCL 30 MG ORAL day HCL Ziglari TABS 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 JANUVIA 100 MG 1 tablet 2 SITAGLIPTIN 40397204674 No Indigo Active TABS by mouth 0 PHOSPHATE Longer Yokum daily 1 Active CERTIFIED ALCOHOL AND DRUG COUNSELOR 6 / 0 2 / 1 6 ATORVASTATIN 1 pill by ATORVASTATIN 67343298687 Active Indigo Active CALCIUM 10 MG mouth CALCIUM Yokum TABS nightly, CERTIFIED ALCOHOL AND DRUG COUNSELOR for cholestero l ASPIRIN 81 MG 1 po qd ASPIRIN 37001469670 Active Indigo Active ORAL TABS Yokum CERTIFIED ALCOHOL AND DRUG COUNSELOR NITROFURANTOIN One 2 NITROFURANTOIN 78617197327 No Indigo Active MONOHYD MACRO capsule 0 MONOHYD MACRO Longer Yokum 100 MG CAPS BID for 1 Active CERTIFIED ALCOHOL AND DRUG COUNSELOR UTI 6 / 0 2 / 1 3 TRAMADOL HCL 1/2 po tid 2 TRAMADOL HCL 29404994378 No Jillina Active 50 MG TABS with ES 0 Longer Frazell Tylenol 1 Active CERTIFIED ALCOHOL AND DRUG COUNSELOR prn pain 5 / 0 8 2 VYVANSE 20 MG 1 tablet 2 LISDEXAMFETAMI 60388408334 No Jillina Active ORAL CAPS daily for 0 NE DIMESYLATE Longer Frazell binge 1 Active CERTIFIED ALCOHOL AND DRUG COUNSELOR eating 5 disorder / 0 2 LASIX 20 MG 2 tablet FUROSEMIDE 30456586274 Active Indigo Active TAB by mouth Yokum daily CERTIFIED ALCOHOL AND DRUG COUNSELOR PREDNISONE 20 2 tablets 2 PREDNISONE 45982788080 No Joseph W Active MG TAB today, 0 Longer Farooq DO then 1 1 Active tablet 5 days 2-4 / 0 4 3 DIFLUCAN 100 1 tablet 2 FLUCONAZOLE 57386075630 No Joseph W Active MG TAB by mouth 0 Longer Farooq DO daily x 3 1 Active days 5 / 0 4 / 3 DIFLUCAN 100 1 tablet 2 FLUCONAZOLE 67400512059 No Joseph W Active MG TABS by mouth 0 Longer Farooq DO every 1 Active other day 5 for 2 / doses 0 1 / 2 3 ZOFRAN 4 MG 1 po q6hr ONDANSETRON 10041047415 Active Joseph W Active TABS PRN Nausea HCL Farooq DO PREDNISONE 20 2 tabs 2 PREDNISONE 55941112581 No Joseph W Active MG TAB daily for 0 Longer Farooq DO 3 days, 1 1 Active tab daily 4 for 3 / days, 1/2 1 tab daily 0 for 2 days / 2 5 AMOXICILLIN 2 po BID x 2 AMOXICILLIN 27029848249 No Maite C Active 500 MG CAPS 10 days 0 Longer Madril 1 Active MD PhD 4 / 1 0 / 2 0 LISINOPRIL 20 1 tablet 2 LISINOPRIL 77979827169 No Maite C Active MG TABS by mouth 0 Longer Madril daily 1 Active MD PhD 4 0 / 1 0 POTASSIUM 2 capsule 2 POTASSIUM 09298197079 No Joseph W Active CHLORIDE CR 10 by mouth 0 CHLORIDE Longer Farooq DO MEQ CPCR daily 1 Active 4 / 0 8 / 2 9 SPIRONOLACTONE 1 tablet 2 SPIRONOLACTONE 07995699581 No Joseph W Active 25 MG TAB by mouth 0 Longer Farooq DO daily 1 Active 4 / 0 8 / 2 9 METFORMIN HCL 1 tablet 2 METFORMIN HCL 94609317371 No Joseph W Active 500 MG TABS by mouth 0 Longer Farooq DO twice 1 Active daily 4 / 0 8 / 2 9 AMARYL 1 MG 1 tab 2 GLIMEPIRIDE 53397366444 No Joseph W Active TABS twice 0 Longer Farooq DO daily 1 Active 4 / 0 8 / 2 9 PHENTERMINE 1 po q am 2 PHENTERMINE 07270333436 No Joseph W Active HCL 37.5 MG for wt. 0 HCL Longer Farooq DO TABS loss 1 Active 3 / 1 2 / 2 3 PROMETHAZINE 1 tab by 2 PROMETHAZINE 79794714625 No Joseph W Active HCL 25 MG TABS mouth 0 HCL Longer Farooq DO every 6 1 Active hours as 3 needed / 0 9 / 0 9 CIPROFLOXACIN Take one 2 CIPROFLOXACIN 34241040237 No Joseph W Active HCL 500 MG (1) tablet 0 HCL Longer Farooq DO TABS by mouth 1 Active twice a 3 day / 0 9 / 0 9 ABILIFY 5 MG one p.o. 2 ARIPIPRAZOLE 54892295976 No Joseph W Active TABS q. day 0 Longer Farooq DO 1 Active 3 / 0 9 / 0 9 HYDROCHLOROTHI 2 tabs 2 HYDROCHLOROTHI 61580887515 No Joesph W Active AZIDE 25 MG every 0 AZIDE Longer Faroqo DO TABS morning 1 Active 3 / 0 6 / 2 7 ABILIFY 2 MG 1 po q hs 2 ARIPIPRAZOLE 63789412023 No Joseph W Active TABS for major 0 Longer Farooq DO depression 1 Active 3 / 0 5 / 0 7 ADIPEX-P 37.5 1/2 tab po 2 PHENTERMINE 96855678681 No Casey Active MG CAPS q am for 0 HCL Longer weight 1 Active PA loss 3 / 0 5 / 0 1 CIPRO 500 MG 1 tablet 2 CIPROFLOXACIN 91441791273 No Casey Active TAB by mouth 0 HCL Longer [place] twice 1 Active PA daily 3 / 0 5 / 0 1 NECON 1 po daily 2 NORETHINDRONE- 42214987935 No Casey Active () 1-35 0 ETH ESTRADIOL Longer MG-MCG TABS 1 Active PA 3 / 0 5 / 0 1 TRAMADOL HCL 1 po tid 2 TRAMADOL HCL 79890341471 No Casey Active 50 MG TABS with ES 0 Longer Tylenol 1 Active PA 3 / 0 5 / 0 1 FLUCONAZOLE one p.o. 2 FLUCONAZOLE 18261034626 No Casey Active 100 MG TABS q. day 2 0 Longer days 1 Active PA 3 / 0 5 / 0 1 POTASSIUM 1 capsule 2 POTASSIUM 52548507228 No Casey Active CHLORIDE CR 10 by mouth 0 CHLORIDE Longer MEQ CPCR daily 1 Active PA 3 / 0 5 / 0 1 IMIPRAMINE HCL Take 6 IMIPRAMINE HCL 36645464664 Active Indigo Active 50 MG TABS tablets by Yokum mouth at CERTIFIED ALCOHOL AND DRUG COUNSELOR bedtime DIFLUCAN 100 1 tablet 2 FLUCONAZOLE 34555372980 No Joseph W Active MG TAB by mouth 0 Longer Farooq DO daily 1 Active 2 / 0 2 / 2 4 VERAPAMIL HCL 2 po bid VERAPAMIL HCL 79093344999 Active Indigo Active CR 120 MG TAB Yokum CR CERTIFIED ALCOHOL AND DRUG COUNSELOR PERMETHRIN 5 % apply neck 2 PERMETHRIN 66379782703 No Joseph W Active CREA to toes 0 Longer Farooq DO tonight 1 Active and then 2 rinse off / in 0 morning. 1 repeat at / 7 days 2 0 SEROQUEL XR 50 one p.o. 2 QUETIAPINE 05742237322 No Joseph W Active MG [id number] q. evening 0 FUMARATE Longer Farooq DO 1 Active 2 / 0 1 / 2 0 TRAMADOL HCL 1-2 2 TRAMADOL HCL 39531423403 No Joseph W Active 50 MG TABS tablets 0 Longer Farooq DO every 6-8 1 Active hours as 2 needed for / pain 0 1 / 2 0 ALPRAZOLAM XR Take 1 2 ALPRAZOLAM 77611642767 No Joseph W Active [id number] tablet by 0 [id number] Longer Farooq DO mouth at 1 Active bedtime 1 / 2 9 DIFLUCAN 100 1 tablet 2 FLUCONAZOLE 02322577349 No Joseph W Active MG TAB by mouth 0 Longer Farooq DO daily 1 Active 0 / 0 6 AMBIEN 10 MG 1 tab by ZOLPIDEM 40411964160 Active Indigo Active TAB mouth at TARTRATE Yokum bedtime as CERTIFIED ALCOHOL AND DRUG COUNSELOR needed for sleep DIFLUCAN 100 1 tablet DIFLUCAN 416944 FLUCONAZOLE Inactive MG TAB by mouth 100 MG TAB daily ALPRAZOLAM Take 1 ALPRAZOLAM ALPRAZOLAM Inactive XR [id number] tablet by XR [id number] mouth at [id number] bedtime TRAMADOL HCL 1-2 TRAMADOL 424330 TRAMADOL HCL Inactive 50 MG TABS tablets HCL 50 MG every 6-8 TABS hours as needed for pain SEROQUEL XR one p.o. SEROQUEL XR QUETIAPINE Inactive 50 MG q. 50 MG FUMARATE [id number] evening [id number] PERMETHRIN 5 apply PERMETHRIN 377655 PERMETHRIN Inactive % CREA neck to 5 % CREA toes tonight and then rinse off in morning. repeat at 7 days DIFLUCAN 100 1 tablet DIFLUCAN 014509 FLUCONAZOLE Inactive MG TAB by mouth 100 MG TAB daily POTASSIUM 1 capsule POTASSIUM POTASSIUM Inactive CHLORIDE CR by mouth CHLORIDE CR CHLORIDE 10 MEQ CPCR daily 10 MEQ CPCR FLUCONAZOLE one p.o. FLUCONAZOLE 19760111 FLUCONAZOLE Inactive 100 MG TABS q. day 2 100 MG TABS days TRAMADOL HCL 1 po tid TRAMADOL 159989 TRAMADOL HCL Inactive 50 MG TABS with ES HCL 50 MG Tylenol TABS NECON 35 1 po NECON NORETHINDRONE- Inactive (28) 1-35 daily (28) 1-35 ETH ESTRADIOL MG-MCG TABS MG-MCG TABS CIPRO 500 MG 1 tablet CIPRO 500 910479 CIPROFLOXACIN Inactive TAB by mouth MG TAB HCL twice daily ADIPEX-P 1/2 tab ADIPEX-P 963116 PHENTERMINE Inactive 37.5 MG CAPS po q am 37.5 MG HCL for CAPS weight loss ABILIFY 2 MG 1 po q hs ABILIFY 2 833925 ARIPIPRAZOLE Inactive TABS for major MG TABS depressio n HYDROCHLOROT 2 tabs HYDROCHLORO 932300 HYDROCHLOROTHI Inactive HIAZIDE 25 every THIAZIDE 25 AZIDE MG TABS morning MG TABS ABILIFY 5 MG one p.o. ABILIFY 5 876362 ARIPIPRAZOLE Inactive TABS q. day MG TABS CIPROFLOXACI Take one CIPROFLOXAC 020022 CIPROFLOXACIN Inactive N HCL 500 MG (1) IN HCL 500 HCL TABS tablet by MG TABS mouth twice a day PROMETHAZINE 1 tab by PROMETHAZIN 513952 PROMETHAZINE Inactive HCL 25 MG mouth E HCL 25 MG HCL TABS every 6 TABS hours as needed PHENTERMINE 1 po q am PHENTERMINE 089651 PHENTERMINE Inactive HCL 37.5 MG for wt. HCL 37.5 MG HCL TABS loss TABS AMARYL 1 MG 1 tab AMARYL 1 MG 141579 GLIMEPIRIDE Inactive TABS twice TABS daily METFORMIN 1 tablet METFORMIN 326273 METFORMIN HCL Inactive HCL 500 MG by mouth HCL 500 MG TABS twice TABS daily SPIRONOLACTO 1 tablet SPIRONOLACT 065219 SPIRONOLACTONE Inactive NE 25 MG TAB by mouth ONE 25 MG daily TAB POTASSIUM 2 capsule POTASSIUM POTASSIUM Inactive CHLORIDE CR by mouth CHLORIDE CR CHLORIDE 10 MEQ CPCR daily 10 MEQ CPCR LISINOPRIL 1 tablet LISINOPRIL 755482 LISINOPRIL Inactive 20 MG TABS by mouth 20 MG TABS daily DIFLUCAN 100 1 tablet DIFLUCAN 830316 FLUCONAZOLE Inactive MG TABS by mouth 100 MG TABS every other day for 2 doses DIFLUCAN 100 1 tablet DIFLUCAN 238505 FLUCONAZOLE Inactive MG TAB by mouth 100 MG TAB daily x 3 days PREDNISONE 2 tablets PREDNISONE 849631 PREDNISONE Inactive 20 MG TAB today, 20 MG TAB then 1 tablet days 2-4 VYVANSE 20 1 tablet VYVANSE 20 LISDEXAMFETAMI Inactive MG ORAL CAPS daily for MG ORAL NE DIMESYLATE binge CAPS eating disorder TRAMADOL HCL 1/2 po TRAMADOL 427094 TRAMADOL HCL Inactive 50 MG TABS tid with HCL 50 MG ES TABS Tylenol prn pain JANUVIA 100 1 tablet JANUVIA 100 SITAGLIPTIN Inactive MG TABS by mouth MG TABS PHOSPHATE daily AMARYL 1 MG 1 tablet AMARYL 1 MG 742074 GLIMEPIRIDE Inactive ORAL TABS orally ORAL TABS twice daily METFORMIN 2 tablets METFORMIN METFORMIN HCL Inactive HCL 500 MG by mouth HCL 500 MG TB24 twice TB24 daily TROKENDI XR 1 tab by TROKENDI XR TOPIRAMATE Inactive 100 MG ORAL mouth 100 MG ORAL [id number] daily [id number] CELEBREX 200 1 tablet CELEBREX 526084 CELECOXIB Inactive MG CAPS by mouth 200 MG CAPS daily with meals AMOXICILLIN 2 po BID AMOXICILLIN 359214 AMOXICILLIN Inactive 500 MG CAPS x 10 days 500 MG CAPS PREDNISONE 2 tabs PREDNISONE 664020 PREDNISONE Inactive 20 MG TAB daily for 20 MG TAB 3 days, 1 tab daily for 3 days, 1/2 tab daily for 2 days NITROFURANTO One NITROFURANT 8499243 NITROFURANTOIN Inactive IN MONOHYD capsule OIN MONOHYD MONOHYD MACRO MACRO 100 MG BID for MACRO 100 CAPS UTI MG CAPS PREDNISONE 2 pills PREDNISONE 554440 PREDNISONE Inactive 20 MG TAB daily x 4 20 MG TAB days AZITHROMYCIN 2 po qd x AZITHROMYCI 7239542 AZITHROMYCIN Inactive 250 MG TABS 1 day, N 250 MG then 1 po TABS qd x 4 days CIPRO 250 MG 1 tablet CIPRO 250 807922 CIPROFLOXACIN Inactive TAB by mouth MG TAB [...] E&M - 3141-9 245.5 [lb_av] Weight Measured Diagnostic Results Date Name Value Unit Range Description Lab Report: CBC, Comp. Metabolic Panel, HGBA1C, Lipid Panel - Chemistry sodium, serum 143 mmol/L 237-084 1465/06/05 carbon dioxide, venous blood 30.4 mmol/L 21.0-32.0 potassium, serum 3.9 mmol/L 3.5-5.2 chloride, serum 104 mmol/L 98-107 blood glucose 137 mg/dL 65-110 urea nitrogen, blood 17 mg/dL 7-18 creatinine, serum 0.85 mg/dL 0.55-1.30 alanine aminotransferase (SGPT), serum 32 U/L 12-78 aspartate aminotransferase (SGOT), serum 18 U/L 15-37 calcium, serum 8.9 mg/dL 8.5-10.1 bilirubin, serum, total 0.50 mg/dL 0.00-1.00 hemoglobin A1C, blood, as % of total hemoglobin 6.0 % 4.3-6.0 cholesterol, serum 176 mg/dL 648-776 0589/06/05 triglyceride, serum, fasting 41 mg/dL 30-200 HDL cholesterol, serum 72 mg/dL 32-96 LDL cholesterol, serum 96 mg/dL 0-130 Lab Report: CBC, Comp. Metabolic Panel, HGBA1C, Lipid Panel - Hematology leukocyte count, blood 4.8 10^3/MM^3 10*3/mm3 4.6-10.2 erythrocyte (RBC) count 4.31 10^6/MM^3 10*6/mm3 3.80-5.80 hemoglobin, blood 13.5 g/dL 12.0-16.0 hematocrit, blood 40.1 % 37.0-47.0 mean corpuscular volume, RBC 93 fL 80-97 mean corpuscular hemoglobin, RBC 31.4 pg 27.0-31.2 mean corpuscular hemoglobin 33.8 G/DL % 31.8-35.4 concentration, RBC red blood cell distribution width 13.7 % 11.6-14.8 platelet count 152 10^3/MM^3 10*3/mm3 142-424 Lab Report: Chlamydia/GC [id number]/[id number] - Lab chlamydia DNA probe NOT DETECTED NOT DETECTED Lab Report: Chlamydia/GC APTIMA/[id number] - Microbiology Neisseria gonorrhoeae DNA probe NOT DETECTED NOT DETECTED Lab Report: Lipid Panel - Chemistry cholesterol, serum 157 mg/dL 988-407 2220/08/22 triglyceride, serum, fasting 215 mg/dL 30-200 HDL cholesterol, serum 43 mg/dL 32-96 LDL cholesterol, serum 71 mg/dL 0-130 Lab Report: UA DIP/MANUAL - Chemistry protein, total urine random Trace mg/dL Negative RBC, urine, dipstick Negative Negative Lab Report: UA DIP/MANUAL - Urinalysis urobilinogen, urine, semiquantitative (dipstick) 1.0 Normal leukocyte esterase, urine, by dipstick Trace Negative nitrite, urine, semiquantitative positive Negative specific gravity, urine 1.020 1.000-1.030 pH, urine, semiquantitative 6.0 5.0-8.5 glucose, urine, semiquantitative Negative Negative ketones, urine, by test strip Negative Negative bilirubin, urine 1+ Negative Office Visit: CN-incontinence - Chemistry RBC, urine, dipstick negative Office Visit: CN-incontinence - Urinalysis ketones, urine, by test strip negative bilirubin, urine negative glucose, urine, semiquantitative negative urine color yellow appearance, urine clear leukocyte esterase, urine, by dipstick negative nitrite, urine, semiquantitative negative urobilinogen, urine, semiquantitative (dipstick) negative protein, urine, semiquantitative (dipstick) negative Encounters Code Encounter Date Provider Facility CPT-13908 Level 4 Est. Patient [facility] - 16:58:20 CDT [place] CPT-87149 Level 3 Est. Patient Yury Benoit MD [facility] 17:20:07 CDT CPT-21947 Level 4 Est. Patient Critical access hospital - 17:02:40 WORK[employer] FIN[employer]CI[employer] CONSULTANT [facility] CPT-90780 Level 4 New Patient Yury Benoit MD [facility] 15:17:12 CDT CPT-70245 Level 3 Est. Patient Critical access hospital - 13:37:46 CDT [facility] CPT-07653 Level 4 Est. Patient Critical access hospital - 10:01:06 CDT [place] CPT-65178 Level 3 Est. Patient [facility] 08:58:07 CDT 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 CPT-76674 Level 3 Est. Patient Faby Marino [facility] 14:40:56 CDT CERTIFIED ALCOHOL AND DRUG COUNSELOR CPT-22701 Level 4 Est. 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 Patient Critical access hospital 09:51:54 WORKDAY FINANCIALS CONSULTANT CPT-23966 Level 3 Est. Patient Critical access hospital 18:59:38 CDT CPT-50025 Level 3 Est. Patient Joseph Trivedi DO [facility] 14:42:12 CDT -[facility] CPT-52460 Level 3 Est. Patient Alden Edwin [facility] 22:18:20 CDT -[facility]HC CPT-19220 Level 3 Est. Patient Joseph Edwin [facility] 16:46:04 CDT -[facility]HC CPT-53220 Level 3 Est. Patient [facility] 15:39:53 CDT -[facility]HC CPT-92695 Level 3 Est. Patient Maite Sanchez MD [facility] [address] 13:33:34 CDT -RHC CPT-15308 Level 3 Est. Patient [facility] 11:37:08 CDT -RHC CPT-07740 Level 3 Est. Patient [facility] 17:13:29 WORKDAY FINANCIALS CONSULTANT -RHC CPT-03939 Level 3 Est. Patient [facility] 18:42:44 CDT CPT-11082 Level 3 Est. Patient [facility] 16:25:39 CDT CPT-32621 Level 3 Est. Patient Casey Brower [facility] 09:52:45 CDT -RHC CPT-36577 Level 3 Est. 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 Patient [facility] 11:03:08 WORKDAY FINANCIALS CONSULTANT -RHC CPT-73422 Level 3 Est. Patient [facility] 14:33:31 CDT -RHC CPT-13806 Level 3 Est. Patient [facility] 17:05:02 WORKDAY FINANCIALS CONSULTANT -RHC CPT-27446 Level 3 Est. Patient [facility] 17:48:06 WORKDAY FINANCIALS CONSULTANT -RHC CPT-41693 Level 3 Est. Patient [facility] 14:59:22 WORKDAY FINANCIALS CONSULTANT -RHC CPT-09122 Level 3 Est. Patient Joseph Trivedi [facility] - 21:45:56 WORKDAY FINANCIALS CONSULTANT Jose [facility] CPT-84133 Level 3 Est. Patient Joseph Trivedi [facility] 21:29:50 CDT -[facility] CPT-21342 Level 3 Est. Patient Joseph Trivedi [facility] 12:41:09 CDT -RHC Procedures Code Procedure Name Date Entry Date Standard Description CPT-34091 Wet Mount - LAB USE ONLY 12:39:03 WORKDAY FINANCIALS CONSULTANT CPT-22371 Vaginal Culture - LAB USE ONLY 12:39:03 WORKDAY FINANCIALS CONSULTANT CPT-42054 Urine Culture - LAB USE ONLY 11:52:44 WORKDAY FINANCIALS CONSULTANT CPT-72848 UA w micro - LAB USE ONLY 11:52:44 WORKDAY FINANCIALS CONSULTANT CPT-19713 Postop F/U Visit 12:08:35 CDT CPT-73531 Postop F/U Visit 18:20:10 CDT CPT-A4351 [facility] Female Cath 09:37:10 CDT CPT-10185 Urine Dip (Floor Use Only) 15:17:13 CDT CPT-82773 Dil F ureth int 15:17:13 CDT CPT-46988 Venipuncture Draw Fee 09:19:08 CDT CPT-11774 Lipid - LAB USE ONLY 09:19:07 CDT CPT-JTINJ Asp/Joint Injection 09:26:49 CDT CPT-54201 Chest 2V Frontal and Lat 14:47:43 CDT CPT-JTINJ Asp/Joint Injection 09:51:53 WORKDAY FINANCIALS CONSULTANT CPT-OV Office Visit 17:39:05 CDT CPT-OV Office Visit 15:19:50 CDT CPT-49840 Sono transvag pelvis non OB uterus ovaries cervix 18:04:34 CDT CPT-51328 Venipuncture Draw Fee 08:55:49 WORKDAY FINANCIALS CONSULTANT
--- OUTSIDE RECORDS SUMMARY | 2016-11-20 13:19 | External Medical Summary | Clinical Summary ---
:1965 Author Organization [facility] Address [address] [address] Phone Allergies, Adverse Reactions, Alerts Allergy Name Reaction Description Start Date Severity Status Provider NKDA Critical Active Indigo Jordanum STOREROOM KEEPER NKDA Critical No Longer Indigo Yokum STOREROOM KEEPER Active NKDA Critical Inactive Adrianna Elder Conditions [...] Resolved Indigo Other malaise 05/24 07/02 Yokum STOREROOM KEEPER and fatigue SLEEP APNEA, 327.23 Active Joseph Pineda Obstructive OBSTRUCTIVE, 06/27 06/27 Farooq DO sleep apnea MILD (adult) (pediatric) OVERWEIGHT 278.02 Inactive Joseph Pineda Overweight 06/28 06/28 Farooq DO Obesity 278.00 Active Indigo Obesity, 06/28 10/18 Yokum STOREROOM KEEPER unspecified OTH GENERAL V70.3 Resolved Maite Gutierrez Other general MEDICAL Laura ONEAL medical EXAMINATION PhD examination for ADMIN PURPOSES administrative purposes OTHER ABNORMAL 790.29 Resolved Maite C Other abnormal GLUCOSE 05/20 Laura ONEAL glucose PhD ACUTE 466.0 Resolved Maite C Acute BRONCHITIS 09/02 Laura ONEAL bronchitis PhD DEPENDENT 782.3 Resolved Indigo Edema EDEMA, LEGS, 10/29 10/18 Yokum STOREROOM KEEPER BILATERAL HYPOKALEMIA, 276.8 Resolved Indigo Hypopotassemia MILD 10/29 07/02 Youm STOREROOM KEEPER Diabetes, Type 250.00 Inactive Joseph Pineda Diabetes 2 06/27 06/27 Farooq DO mellitus without mention of complication, type II or unspecified type, not stated as uncontrolled Diabetes 250.02 Resolved Indigo Diabetes mellitus, type 06/27 STOREROOM KEEPER mellitus II, without mention uncontrolled of complication, [...] Resolved Indigo Routine gynecological 12/14 07/02 Yo STOREROOM KEEPER gynecological examination examination Postmenopausal 627.1 Resolved Indigo Postmenopausal bleeding 12/14 STOREROOM KEEPER bleeding Screening for V76.51 Resolved Indigo Screening for malignant 12/26 07/02 Yokum STOREROOM KEEPER malignant neoplasms of neoplasms of colon colon Insomnia, 307.42 Active Indigo 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 Establish care V68.89 Resolved Indigo Encounters for or get 01/16 07/02 Yo STOREROOM KEEPER other specified acquainted administrative visit purpose Weakness, left 342.90 Resolved Indigo Hemiplegia, side of body 06/20 10/18 Yokum STOREROOM KEEPER unspecified, affecting unspecified side TIA 435.9 Active Indigo Unspecified 06/20 07/02 Yokum STOREROOM KEEPER transient cerebral ischemia Knee pain, 719.46 Active Indigo Pain in joint bilateral 06/20 10/18 Yokum STOREROOM KEEPER involving lower leg Bronchitis 490 Resolved Indigo Bronchitis, not 07/23 10/18 Yokum STOREROOM KEEPER specified as acute or chronic Diabetes 357.2 Active Maliheh Polyneuropathy mellitus, 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 Knee pain, 719.46 Active Indigo Pain in joint right 06/20 10/18 Yokum STOREROOM KEEPER involving lower leg Jesi 112.3 Active Indigo Candidiasis of intertrigo 10/09 10/18 Yokum STOREROOM KEEPER skin and nails Hyperlipidemia 272.4 Active Anne Other and 12/24 12/24 Neil unspecified RMA hyperlipidemia Incontinence, 788.33 Active Indigo Mixed mixed, 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 STOREROOM KEEPER incontinence urge/stress (female) (male) Female stress 625.6 Active Yury AnthonyCarlos Enrique Stress incontinence 01/03 01/03 Cy patel MD female ABNORMAL VAGINAL ICD-626.9 Inactive Maite Sanchez BLEEDING PhD SCABIES ICD-133.0 Inactive Maite Sanchez PhD FATIGUE ICD-780.79 Inactive Indigo Yokum STOREROOM KEEPER OTH GENERAL ICD-V70.3 Inactive Maite Sanchez MEDICAL PhD EXAMINATION ADMIN PURPOSES OTHER ABNORMAL ICD-790.29 Inactive Maite Sanchez GLUCOSE PhD ACUTE BRONCHITIS ICD-466.0 Inactive Maite Matt Sanchez PhD DEPENDENT EDEMA, ICD-782.3 Inactive Indigo Yokum LEGS, BILATERAL STOREROOM KEEPER HYPOKALEMIA, MILD ICD-276.8 Inactive Indigo Yokum STOREROOM KEEPER Diabetes mellitus, ICD-250.02 Inactive Indigo Yokum type II, STOREROOM KEEPER uncontrolled Sinusitis, ICD-461.1 Inactive Ismael Coyne frontal, acute Amandeep ONEAL Laryngitis, acute ICD-464.00 Inactive Ismael Coyne Amandeep ONEAL Routine ICD-V72.31 Inactive Indigo Yokum gynecological STOREROOM KEEPER examination Postmenopausal ICD-627.1 Inactive Indigo Yokum 2015 bleeding STOREROOM KEEPER Screening for ICD-V76.51 Inactive Indigo Yokum 2015 malignant STOREROOM KEEPER neoplasms of colon Establish care or ICD-V68.89 Inactive Indigo Yokum get acquainted STOREROOM KEEPER visit Weakness, left ICD-342.90 Inactive Indigo Yokum side of body STOREROOM KEEPER Bronchitis ICD-490 Inactive Indigo Yokum STOREROOM KEEPER Medication List Medication Instructions Start Stop Generic NDC Status Provider Patient Date Date Name Instruction METFORMIN 2 tablets METFORMIN 13265421493 No Indigo Active HCL 500 MG by mouth HCL Longer Yokum TB24 twice Active STOREROOM KEEPER daily AMARYL 1 MG 1 tablet GLIMEPIRID 95937167187 No Indigo Active ORAL TABS orally E Longer Yokum twice Active STOREROOM KEEPER daily NYSTATIN apply to NYSTATIN 78111739144 Active Indigo Active 175003 rash TID Yokum UNIT/GM PRN STOREROOM KEEPER CREA TROKENDI XR 2 tab TOPIRAMATE 67717271672 Active Malihe Active 100 MG ORAL daily h [id number] Ziglar i CRANIOLOGIST METOPROLOL 1 tab po METOPROLOL 57503758341 Active Indigo Active TARTRATE 25 bid TARTRATE Yokum MG TABS STOREROOM KEEPER AZITHROMYCI 2 po qd x AZITHROMYC 66732799352 No Jillin Active N 250 MG 1 day, IN Longer a TABS then 1 po Active Frazel qd x 4 l STOREROOM KEEPER days PREDNISONE 2 pills PREDNISONE 31629920654 No Jillin Active 20 MG TAB daily x 4 Longer a days Active Frazel l STOREROOM KEEPER PIOGLITAZON take one PIOGLITAZO 88073505487 Active Malihe Active E HCL 30 MG a day NE HCL h ORAL TABS Ziglar i CRANIOLOGIST JANUVIA 100 1 tablet SITAGLIPTI 95105184746 No Indigo Active MG TABS by mouth N Longer Yokum daily PHOSPHATE Active STOREROOM KEEPER ATORVASTATI 1 pill by ATORVASTAT 95748514376 Active Indigo Active N CALCIUM mouth IN CALCIUM Yokum 10 MG TABS nightly, STOREROOM KEEPER for cholester ol ASPIRIN 81 1 po qd ASPIRIN 16750145839 Active Indigo Active MG ORAL Yokum TABS STOREROOM KEEPER NITROFURANT One NITROFURAN 54155549906 No Indigo Active OIN MONOHYD capsule TOIN Longer Yokum MACRO 100 BID for MONOHYD Active STOREROOM KEEPER MG CAPS UTI MACRO TRAMADOL 1/2 po TRAMADOL 96668483489 No Jillin Active HCL 50 MG tid with HCL Longer a TABS ES Active Frazel Tylenol l STOREROOM KEEPER prn pain VYVANSE 20 1 tablet LISDEXAMFE 79784265808 No Jillin Active MG ORAL daily for TAMINE Longer a CAPS binge DIMESYLATE Active Frazel eating l STOREROOM KEEPER disorder LASIX 20 MG 2 tablet FUROSEMIDE 31392539744 Active Indigo Active TAB by mouth Yokum daily STOREROOM KEEPER CELEBREX 1 tablet CELECOXIB 93208497370 Active Indigo Active 200 MG CAPS by mouth Yokum daily STOREROOM KEEPER with meals PREDNISONE 2 tablets PREDNISONE 42394411614 No Joseph Active 20 MG TAB today, Longer W Farooq then 1 Active DO tablet days 2-4 DIFLUCAN 1 tablet FLUCONAZOL 16304184802 No Joseph Active 100 MG TAB by mouth E Longer W Farooq daily x 3 Active DO days DIFLUCAN 1 tablet FLUCONAZOL 86967942272 No Joseph Active 100 MG TABS by mouth E Longer W Farooq every Active DO other day for 2 doses ZOFRAN 4 MG 1 po q6hr ONDANSETRO 18722238252 Active Joseph Active TABS PRN N HCL W Farooq Nausea DO PREDNISONE 2 tabs PREDNISONE 45403539892 No Joseph Active 20 MG TAB daily for Longer W Farooq 3 days, 1 Active DO tab daily for 3 days, 1/2 tab daily for 2 days AMOXICILLIN 2 po BID AMOXICILLI 92407550825 No Maite C Active 500 MG CAPS x 10 days N Longer Madril Active PhD LISINOPRIL 1 tablet LISINOPRIL 29594287629 No Maite C Active 20 MG TABS by mouth Longer Madril daily Active PhD POTASSIUM 2 capsule POTASSIUM 31556538620 No Joseph Active CHLORIDE CR by mouth CHLORIDE Longer W Farooq 10 MEQ CPCR daily Active DO SPIRONOLACT 1 tablet SPIRONOLAC 54551377228 No Joseph Active ONE 25 MG by mouth TONE Longer W Farooq TAB daily Active DO METFORMIN 1 tablet METFORMIN 54250145659 No Joseph Active HCL 500 MG by mouth HCL Longer W Farooq TABS twice Active DO daily AMARYL 1 MG 1 tab GLIMEPIRID 43778632341 No Joseph Active TABS twice E Longer W Farooq daily Active DO PHENTERMINE 1 po q am PHENTERMIN 77298952849 No Joseph Active HCL 37.5 MG for wt. E HCL Longer W Farooq TABS loss Active DO PROMETHAZIN 1 tab by PROMETHAZI 74228656890 No Joseph Active E HCL 25 MG mouth NE HCL Longer W Farooq TABS every 6 Active DO hours as needed CIPROFLOXAC Take one CIPROFLOXA 78079844993 No Joseph Active IN HCL 500 (1) DELORES HCL Longer W Farooq MG TABS tablet by Active DO mouth twice a day ABILIFY 5 one p.o. ARIPIPRAZO 68686105132 No Joseph Active MG TABS q. day LE Longer W Farooq Active DO HYDROCHLORO 2 tabs HYDROCHLOR 76889695191 No Joseph Active THIAZIDE 25 every OTHIAZIDE Longer W Farooq MG TABS morning Active DO ABILIFY 2 1 po q hs ARIPIPRAZO 42189623338 No Joseph Active MG TABS for major LE Longer W Farooq depressio Active DO n ADIPEX-P 1/2 tab PHENTERMIN 81403724413 No Casey Active 37.5 MG po q am E HCL Longer Leonarda CAPS for Active PA weight loss CIPRO 500 1 tablet CIPROFLOXA 81024979937 No Casey Active MG TAB by mouth DELORES HCL Longer Leonarda twice Active PA daily NECON 1/35 1 po NORETHINDR 28544246504 No Casey Active (28) 1-35 daily ONE-ETH Longer Leonarda MG-MCG TABS ESTRADIOL Active PA TRAMADOL 1 po tid TRAMADOL 12700533549 No Casey Active HCL 50 MG with ES HCL Longer Leonarda TABS Tylenol Active PA FLUCONAZOLE one p.o. FLUCONAZOL 90108448714 No Casey Active 100 MG TABS q. day 2 E Longer Leonarda days Active PA POTASSIUM 1 capsule POTASSIUM 24394735348 No Casey Active CHLORIDE CR by mouth CHLORIDE Longer 10 MEQ CPCR daily Active PA IMIPRAMINE Take 6 IMIPRAMINE 31301477398 Active Indigo Active HCL 50 MG tablets HCL Yokum TABS by mouth STOREROOM KEEPER at bedtime DIFLUCAN 1 tablet FLUCONAZOL 72237869663 No Joseph Active 100 MG TAB by mouth E Longer W Farooq daily Active DO VERAPAMIL 2 po bid VERAPAMIL 18848414294 Active Indigo Active HCL CR 120 HCL Yokum MG TAB CR STOREROOM KEEPER PERMETHRIN apply PERMETHRIN 06988980798 No Joseph Active 5 % CREA neck to Longer W Farooq toes Active DO tonight and then rinse off in morning. repeat at 7 days SEROQUEL XR one p.o. QUETIAPINE 48234227870 No Joseph Active 50 MG q. FUMARATE Longer W Farooq [id number] evening Active DO TRAMADOL 1-2 TRAMADOL 62588789422 No Joseph Active HCL 50 MG tablets HCL Longer W Farooq TABS every 6-8 Active DO hours as needed for pain ALPRAZOLAM one p.o. ALPRAZOLAM 35500024496 Active Indigo Active 3 MG q.h.s. Yokum [id number] STOREROOM KEEPER ALPRAZOLAM Take 1 ALPRAZOLAM 50931707881 No Joseph Active XR tablet by [id number] Longer W Farooq [id number] mouth at Active DO bedtime DIFLUCAN 1 tablet FLUCONAZOL 60883758416 No Joseph Active 100 MG TAB by mouth E Longer W Farooq daily Active DO AMBIEN 10 1 tab by ZOLPIDEM 50273353293 Active Indigo Active MG TAB mouth at TARTRATE Yokum bedtime STOREROOM KEEPER as needed for sleep DIFLUCAN 100 1 tablet DIFLUCAN 463357 FLUCONAZOLE Inactive MG TAB by mouth 100 MG TAB daily ALPRAZOLAM Take 1 ALPRAZOLAM ALPRAZOLAM Inactive XR [id number] tablet by XR [id number] mouth at [id number] bedtime TRAMADOL HCL 1-2 TRAMADOL 932447 TRAMADOL HCL Inactive 50 MG TABS tablets HCL 50 MG every 6-8 TABS hours as needed for pain SEROQUEL XR one p.o. SEROQUEL XR QUETIAPINE Inactive 50 MG q. 50 MG FUMARATE [id number] evening [id number] PERMETHRIN 5 apply PERMETHRIN 290423 PERMETHRIN Inactive % CREA neck to 5 % CREA toes tonight and then rinse off in morning. repeat at 7 days DIFLUCAN 100 1 tablet DIFLUCAN 025823 FLUCONAZOLE Inactive MG TAB by mouth 100 MG TAB daily POTASSIUM 1 capsule POTASSIUM POTASSIUM Inactive CHLORIDE CR by mouth CHLORIDE CR CHLORIDE 10 MEQ CPCR daily 10 MEQ CPCR FLUCONAZOLE one p.o. FLUCONAZOLE 061427 FLUCONAZOLE Inactive 100 MG TABS q. day 2 100 MG TABS days TRAMADOL HCL 1 po tid TRAMADOL 339164 TRAMADOL HCL Inactive 50 MG TABS with ES HCL 50 MG Tylenol TABS NECON 1/35 1 po NECON 1/35 NORETHINDRONE- Inactive (28) 1-35 daily (28) 1-35 ETH ESTRADIOL MG-MCG TABS MG-MCG TABS CIPRO 500 MG 1 tablet CIPRO 500 563864 CIPROFLOXACIN Inactive TAB by mouth MG TAB HCL twice daily ADIPEX-P 1/2 tab ADIPEX-P 918608 PHENTERMINE Inactive 37.5 MG CAPS po q am 37.5 MG HCL for CAPS weight loss ABILIFY 2 MG 1 po q hs ABILIFY 2 634394 ARIPIPRAZOLE Inactive TABS for major MG TABS depressio n HYDROCHLOROT 2 tabs HYDROCHLORO 580429 HYDROCHLOROTHI Inactive HIAZIDE 25 every THIAZIDE 25 AZIDE MG TABS morning MG TABS ABILIFY 5 MG one p.o. ABILIFY 5 065339 ARIPIPRAZOLE Inactive TABS q. day MG TABS CIPROFLOXACI Take one CIPROFLOXAC 278153 CIPROFLOXACIN Inactive N HCL 500 MG (1) IN HCL 500 HCL TABS tablet by MG TABS mouth twice a day PROMETHAZINE 1 tab by PROMETHAZIN 106124 PROMETHAZINE Inactive HCL 25 MG mouth E HCL 25 MG HCL TABS every 6 TABS hours as needed PHENTERMINE 1 po q am PHENTERMINE 965663 PHENTERMINE Inactive HCL 37.5 MG for wt. HCL 37.5 MG HCL TABS loss TABS AMARYL 1 MG 1 tab AMARYL 1 MG 262110 GLIMEPIRIDE Inactive TABS twice TABS daily METFORMIN 1 tablet METFORMIN 619116 METFORMIN HCL Inactive HCL 500 MG by mouth HCL 500 MG TABS twice TABS daily SPIRONOLACTO 1 tablet SPIRONOLACT 536374 SPIRONOLACTONE Inactive NE 25 MG TAB by mouth ONE 25 MG daily TAB POTASSIUM 2 capsule POTASSIUM POTASSIUM Inactive CHLORIDE CR by mouth CHLORIDE CR CHLORIDE 10 MEQ CPCR daily 10 MEQ CPCR LISINOPRIL 1 tablet LISINOPRIL 641549 LISINOPRIL Inactive 20 MG TABS by mouth 20 MG TABS daily DIFLUCAN 100 1 tablet DIFLUCAN 19760111 FLUCONAZOLE Inactive MG TABS by mouth 100 MG TABS every other day for 2 doses DIFLUCAN 100 1 tablet DIFLUCAN 583944 FLUCONAZOLE Inactive MG TAB by mouth 100 MG TAB daily x 3 days PREDNISONE 2 tablets PREDNISONE 529927 PREDNISONE Inactive 20 MG TAB today, 20 MG TAB then 1 tablet days 2-4 VYVANSE 20 1 tablet VYVANSE 20 LISDEXAMFETAMI Inactive MG ORAL CAPS daily for MG ORAL NE DIMESYLATE binge CAPS eating disorder TRAMADOL HCL 1/2 po TRAMADOL 684914 TRAMADOL HCL Inactive 50 MG TABS tid with HCL 50 MG ES TABS Tylenol prn pain JANUVIA 100 1 tablet JANUVIA 100 SITAGLIPTIN Inactive MG TABS by mouth MG TABS PHOSPHATE daily AMARYL 1 MG 1 tablet AMARYL 1 MG 848819 GLIMEPIRIDE Inactive ORAL TABS orally ORAL TABS twice daily METFORMIN 2 tablets METFORMIN METFORMIN HCL Inactive HCL 500 MG by mouth HCL 500 MG TB24 twice TB24 daily AMOXICILLIN 2 po BID AMOXICILLIN 409682 AMOXICILLIN Inactive 500 MG CAPS x 10 days 500 MG CAPS PREDNISONE 2 tabs PREDNISONE 110383 PREDNISONE Inactive 20 MG TAB daily for 20 MG TAB 3 days, 1 tab daily for 3 days, 1/2 tab daily for 2 days NITROFURANTO One NITROFURANT 5338936 NITROFURANTOIN Inactive IN MONOHYD capsule OIN MONOHYD MONOHYD MACRO MACRO 100 MG BID for MACRO 100 CAPS UTI MG CAPS PREDNISONE 2 pills PREDNISONE 789732 PREDNISONE Inactive 20 MG TAB daily x 4 20 MG TAB days AZITHROMYCIN 2 po qd x AZITHROMYCI 9211517 AZITHROMYCIN Inactive 250 MG TABS 1 day, [...] HGBA1C - Chemistry sodium, serum 140 mmol/L 802-164 4502/06/03 potassium, serum 3.9 mmol/L 3.5-5.2 chloride, serum [...] Panel - Chemistry sodium, serum 136 mmol/L 186-892 7783/01/04 carbon dioxide, venous blood 27.0 mmol/L 21.0-32.0 potassium, serum 4.6 mmol/L 3.5-5.2 chloride, serum 98 mmol/L 98-107 blood glucose 174 mg/dL 65-110 urea nitrogen, blood 12 mg/dL 7-18 creatinine, serum 0.78 mg/dL 0.55-1.30 alanine aminotransferase (SGPT), serum 65 U/L 12-78 aspartate aminotransferase (SGOT), serum 34 U/L 15-37 calcium, serum 8.9 mg/dL 8.5-10.1 bilirubin, serum, total 0.40 mg/dL 0.00-1.00 cholesterol, serum 219 mg/dL 609-171 4816/01/04 triglyceride, serum, fasting 214 mg/dL 30-200 HDL cholesterol, serum 39 mg/dL 32-96 LDL cholesterol, serum 137 mg/dL 0-130 Lab Report: Lipid Panel - Chemistry cholesterol, serum 157 mg/dL 223-924 5165/08/22 triglyceride, serum, fasting 215 mg/dL 30-200 HDL [...] mg/dL Encounters Code Encounter Date Provider Facility CPT-10013 Level 4 New Patient Yury Benoit MD [facility] 15:17:12 CDT CPT-19786 Level 3 Est[facility] CPT-21384 Level 4 Est. Patient [facility] - 10:01:06 CDT [place] CPT-20587 Level 3 Est. Patient [facility] 08:58:07 CDT CRANIOLOGIST CPT-55158 Level 3 Est. Patient Faby Marino [facility] 14:40:56 CDT STOREROOM KEEPER CPT-91700 Level 4 Est. Patient [facility] 17:29:53 [employer] CRANIOLOGIST CPT-41567 Level 4 Est. Patient Indigo Sexton [facility] 09:51:54 [employer] CPT-73110 Level 3 Est. Patient Indigo Sexton [facility] 18:59:38 CDT CPT-81736 Level 3 Est. Patient Joseph Pineda [facility] 14:42:12 CDT -RHC CPT-57905 Level 3 Est. Patient Joseph Pineda [facility] 22:18:20 CDT -RHC CPT-15764 Level 3 Est. Patient Joseph Pineda [facility] 16:46:04 CDT -RHC CPT-79712 Level 3 Est. Patient Joseph Pineda [facility] 15:39:53 CDT -RHC CPT-49581 Level 3 Est. Patient Maite Sanchez MD [facility] 13:33:34 CDT -RHC CPT-30461 Level 3 Est. Patient Joseph Pineda [facility] 11:37:08 CDT -RHC CPT-31510 Level 3 Est. Patient Joseph Pineda [facility] 17:13:29 [employer] -RHC CPT-60719 Level 3 Est. Patient Joseph Edwin [facility] 18:42:44 CDT CPT-96990 Level 3 Est. Patient Joseph Edwin [facility] 16:25:39 CDT CPT-81294 Level 3 Est. Patient Casey ARCHIBALD [facility] 09:52:45 CDT -RHC CPT-70997 Level 3 Est. Patient Joseph Edwin [facility] 11:03:29 [employer] -RHC CPT-47462 Level 3 Est. Patient Joseph Edwin [facility] 11:03:08 [employer] -RHC CPT-41992 Level 3 Est. Patient Joseph Edwin [facility] 14:33:31 CDT -RHC CPT-52451 Level 3 Est. Patient [facility] 17:05:02 [employer] -RHC CPT-77144 Level 3 Est. Patient Joseph Pineda [facility] 17:48:06 [employer] -RHC CPT-79253 Level 3 Est. Patient Joseph Pineda [facility] 14:59:22 [employer] -RHC CPT-45331 Level 3 Est. Patient Joseph Pineda [facility] - 21:45:56 [employer] [place] [facility] CPT-36910 Level 3 Est. Patient Joseph Pineda [facility] 21:29:50 CDT -RHC CPT-50725 Level 3 Est. Patient Joseph Pineda [facility] 12:41:09 CDT -RHC Procedures Code Procedure Name Date Entry Date Standard Description CPT-96750 Urine Dip (Floor Use Only) 15:17:13 CDT CPT-05008 Dil F ureth int 15:17:13 CDT CPT-88043 Venipuncture Draw Fee 09:19:08 CDT CPT-30971 Lipid - LAB USE ONLY 09:19:07 CDT CPT-JTINJ Asp/Joint Injection 09:26:49 CDT CPT-10297 Chest 2V Frontal and Lat 14:47:43 CDT CPT-JTINJ Asp/Joint Injection 09:51:53 [employer] CPT-OV Office Visit 17:39:05 CDT CPT-OV Office Visit 15:19:50 CDT CPT-88836 Sono transvag pelvis non OB uterus ovaries cervix 18:04:34 CDT CPT-99019 Venipuncture Draw Fee 08:55:49 [employer]
--- OUTSIDE RECORDS SUMMARY | 2016-11-20 13:20 | External Medical Summary | Clinical Summary ---
:1965 Author Organization [facility] [employer] Address [address] [address] Phone Allergies, Adverse Reactions, Alerts Allergy Name Reaction Description Start Date Severity Status Provider NKDA Critical Active Indigo Yonickieum WARP HAULER NKDA Critical No Longer Indigo Yokum WARP HAULER Active NKDA Critical Inactive Adrianna Elder Conditions [...] Resolved Indigo Other malaise 05/24 07/02 Yokum WARP HAULER and fatigue SLEEP APNEA, 327.23 Active Joseph Pineda Obstructive OBSTRUCTIVE, 06/27 06/27 Farooq DO sleep apnea MILD (adult) (pediatric) OVERWEIGHT 278.02 Inactive Joseph Pineda Overweight 06/28 06/28 Farooq DO Obesity 278.00 Active Indigo Obesity, 06/28 10/18 Yokum WARP HAULER unspecified OTH GENERAL V70.3 Resolved Maite Gutierrez Other general MEDICAL Laura ONEAL medical EXAMINATION PhD examination for ADMIN PURPOSES administrative purposes OTHER ABNORMAL 790.29 Resolved Maite C Other abnormal GLUCOSE 05/20 Laura ONEAL glucose PhD ACUTE 466.0 Resolved Maite C Acute BRONCHITIS 09/02 Laura ONEAL bronchitis PhD DEPENDENT 782.3 Resolved Indigo Edema EDEMA, LEGS, 10/29 10/18 Yokum WARP HAULER BILATERAL HYPOKALEMIA, 276.8 Resolved Indigo Hypopotassemia MILD 10/29 07/02 Youm WARP HAULER Diabetes, Type 250.00 Inactive Joseph Pineda Diabetes 2 06/27 06/27 Farooq DO mellitus without mention of complication, type II or unspecified type, not stated as uncontrolled Diabetes 250.02 Resolved Indigo Diabetes mellitus, type 06/27 WARP HAULER mellitus II, without mention uncontrolled of complication, [...] Resolved Indigo Routine gynecological 12/14 07/02 Yo WARP HAULER gynecological examination examination Postmenopausal 627.1 Resolved Indigo Postmenopausal bleeding 12/14 WARP HAULER bleeding Screening for V76.51 Resolved Indigo Screening for malignant 12/26 07/02 Yokum WARP HAULER malignant neoplasms of neoplasms of colon colon Insomnia, 307.42 Active Indigo 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 WARP HAULER disorder of initiating or maintaining sleep Establish care V68.89 Resolved Indigo Encounters for or get 01/16 07/02 Yo WARP HAULER other specified acquainted administrative visit purpose Weakness, left 342.90 Resolved Indigo Hemiplegia, side of body 06/20 10/18 Yokum WARP HAULER unspecified, affecting unspecified side TIA 435.9 Active Indigo Unspecified 06/20 07/02 Yokum WARP HAULER transient cerebral ischemia Knee pain, 719.46 Active Indigo Pain in joint bilateral 06/20 10/18 Yokum WARP HAULER involving lower leg Bronchitis 490 Resolved Indigo Bronchitis, not 07/23 10/18 Yokum WARP HAULER specified as acute or chronic Diabetes 357.2 Active Maliheh Polyneuropathy mellitus, 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y Knee pain, 719.46 Active Indigo Pain in joint right 06/20 10/18 Yokum WARP HAULER involving lower leg Jesi 112.3 Active Indigo Candidiasis of intertrigo 10/09 10/18 Yokum WARP HAULER skin and nails Hyperlipidemia 272.4 Active Anne Other and 12/24 12/24 Neil unspecified RMA hyperlipidemia Incontinence, 788.33 Active Indigo Mixed mixed, 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 WARP HAULER incontinence urge/stress (female) (male) ABNORMAL VAGINAL ICD-626.9 Inactive Maite Sanchez BLEEDING PhD SCABIES ICD-133.0 Inactive Maite Sanchez PhD FATIGUE ICD-780.79 Inactive Indigo Yokum WARP HAULER OTH GENERAL ICD-V70.3 Inactive Maite Sanchez MEDICAL PhD EXAMINATION ADMIN PURPOSES OTHER ABNORMAL ICD-790.29 Inactive Maite Sanchez GLUCOSE PhD ACUTE BRONCHITIS ICD-466.0 Inactive Maite Sanchez PhD DEPENDENT EDEMA, ICD-782.3 Inactive Indigo Yokum LEGS, BILATERAL WARP HAULER HYPOKALEMIA, MILD ICD-276.8 Inactive Indigo Yokum WARP HAULER Diabetes mellitus, ICD-250.02 Inactive Indigo Yokum type II, WARP HAULER uncontrolled Sinusitis, ICD-461.1 Inactive Ismael Coyne frontal, acute Amandeep ONEAL Laryngitis, acute ICD-464.00 Inactive Ismael Coyne Amandeep ONEAL Routine ICD-V72.31 Inactive Indigo Yonickieum gynecological WARP HAULER examination Postmenopausal ICD-627.1 Inactive Indigo Yokum 2015 bleeding WARP HAULER Screening for ICD-V76.51 Inactive Indigo Yokum 2015 malignant WARP HAULER neoplasms of colon Establish care or ICD-V68.89 Inactive Indigo Yokum get acquainted WARP HAULER visit Weakness, left ICD-342.90 Inactive Indigo Yokum side of body WARP HAULER Bronchitis ICD-490 Inactive Indigo Yokum WARP HAULER Medication List Medication Instructions Start Stop Generic NDC Status Provider Patient Date Date Name Instruction METFORMIN 2 tablets METFORMIN 98929907463 No Indigo Active HCL 500 MG by mouth HCL Longer Yokum TB24 twice Active WARP HAULER daily AMARYL 1 MG 1 tablet GLIMEPIRID 44069326162 No Indigo Active ORAL TABS orally E Longer Yokum twice Active WARP HAULER daily NYSTATIN apply to NYSTATIN 40168396834 Active Indigo Active 899935 rash TID Yokum UNIT/GM PRN WARP HAULER CREA TROKENDI XR 2 tab TOPIRAMATE 83779557610 Active Malihe Active 100 MG ORAL daily h [id number] Ziglar i 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 METOPROLOL 1 tab po METOPROLOL 87714233750 Active Indigo Active TARTRATE 25 bid TARTRATE Yokum MG TABS WARP HAULER AZITHROMYCI 2 po qd x AZITHROMYC 81733728816 No Jillin Active N 250 MG 1 day, IN Longer a TABS then 1 po Active Frazel qd x 4 l WARP HAULER days PREDNISONE 2 pills PREDNISONE 88416243739 No Jillin Active 20 MG TAB daily x 4 Longer a days Active Frazel l WARP HAULER PIOGLITAZON take one PIOGLITAZO 64884530459 Active Malihe Active E HCL 30 MG a day NE HCL h ORAL TABS Ziglar i 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 JANUVIA 100 1 tablet SITAGLIPTI 73288210154 No Indigo Active MG TABS by mouth N Longer Yokum daily PHOSPHATE Active WARP HAULER ATORVASTATI 1 pill by ATORVASTAT 08089436682 Active Indigo Active N CALCIUM mouth IN CALCIUM Yokum 10 MG TABS nightly, WARP HAULER for cholester ol ASPIRIN 81 1 po qd ASPIRIN 77967136028 Active Indigo Active MG ORAL Yokum TABS WARP HAULER NITROFURANT One NITROFURAN 47019903682 No Indigo Active OIN MONOHYD capsule TOIN Longer Yokum MACRO 100 BID for MONOHYD Active WARP HAULER MG CAPS UTI MACRO TRAMADOL 1/2 po TRAMADOL 30951691390 No Jillin Active HCL 50 MG tid with HCL Longer a TABS ES Active Frazel Tylenol l WARP HAULER prn pain VYVANSE 20 1 tablet LISDEXAMFE 74694395676 No Jillin Active MG ORAL daily for TAMINE Longer a CAPS binge DIMESYLATE Active Frazel eating l WARP HAULER disorder LASIX 20 MG 2 tablet FUROSEMIDE 35610897679 Active Indigo Active TAB by mouth Yokum daily WARP HAULER CELEBREX 1 tablet CELECOXIB 99728872309 Active Indigo Active 200 MG CAPS by mouth Yokum daily WARP HAULER with meals PREDNISONE 2 tablets PREDNISONE 31477431202 No Joseph Active 20 MG TAB today, Longer W Farooq then 1 Active DO tablet days 2-4 DIFLUCAN 1 tablet FLUCONAZOL 82739871602 No Joseph Active 100 MG TAB by mouth E Longer W Farooq daily x 3 Active DO days DIFLUCAN 1 tablet FLUCONAZOL 52296939826 No Joseph Active 100 MG TABS by mouth E Longer W Farooq every Active DO other day for 2 doses ZOFRAN 4 MG 1 po q6hr ONDANSETRO 69187887970 Active Joseph Active TABS PRN N HCL W Farooq Nausea DO PREDNISONE 2 tabs PREDNISONE 97768994893 No Joseph Active 20 MG TAB daily for Longer W Farooq 3 days, 1 Active DO tab daily for 3 days, 1/2 tab daily for 2 days AMOXICILLIN 2 po BID AMOXICILLI 59257544816 No Maite C Active 500 MG CAPS x 10 days N Longer Kimberlyl Active PhD LISINOPRIL 1 tablet LISINOPRIL 99962312144 No Maite C Active 20 MG TABS by mouth Longer Madril daily Active PhD POTASSIUM 2 capsule POTASSIUM 81265889281 No Joseph Active CHLORIDE CR by mouth CHLORIDE Longer W Farooq 10 MEQ CPCR daily Active DO SPIRONOLACT 1 tablet SPIRONOLAC 75290227288 No Joseph Active ONE 25 MG by mouth TONE Longer W Farooq TAB daily Active DO METFORMIN 1 tablet METFORMIN 47541900487 No Joseph Active HCL 500 MG by mouth HCL Longer W Farooq TABS twice Active DO daily AMARYL 1 MG 1 tab GLIMEPIRID 07393553034 No Joseph Active TABS twice E Longer W Farooq daily Active DO PHENTERMINE 1 po q am PHENTERMIN 24075296256 No Joseph Active HCL 37.5 MG for wt. E HCL Longer W Farooq TABS loss Active DO PROMETHAZIN 1 tab by PROMETHAZI 19487833157 No Joseph Active E HCL 25 MG mouth NE HCL Longer W Farooq TABS every 6 Active DO hours as needed CIPROFLOXAC Take one CIPROFLOXA 20393679514 No Joseph Active IN HCL 500 (1) DELORES HCL Longer W Farooq MG TABS tablet by Active DO mouth twice a day ABILIFY 5 one p.o. ARIPIPRAZO 64491405833 No Joseph Active MG TABS q. day LE Longer W Farooq Active DO HYDROCHLORO 2 tabs HYDROCHLOR 97470769525 No Joseph Active THIAZIDE 25 every OTHIAZIDE Longer W Farooq MG TABS morning Active DO ABILIFY 2 1 po q hs ARIPIPRAZO 14596557345 No Joseph Active MG TABS for major LE Longer W Farooq depressio Active DO n ADIPEX-P 1/2 tab PHENTERMIN 33495999144 No Casey Active 37.5 MG po q am E HCL Longer [place] CAPS for Active PA weight loss CIPRO 500 1 tablet CIPROFLOXA 27234747598 No Casey Active MG TAB by mouth DELORES HCL Longer Leonarda twice Active PA daily NECON 1/35 1 po NORETHINDR 63552774660 No Casey Active (28) 1-35 daily ONE-ETH Longer [place] MG-MCG TABS ESTRADIOL Active PA TRAMADOL 1 po tid TRAMADOL 41752929014 No Casey Active HCL 50 MG with ES HCL Longer Leonarda TABS Tylenol Active PA FLUCONAZOLE one p.o. FLUCONAZOL 43355125637 No Casey Active 100 MG TABS q. day 2 E Longer [place] days Active PA POTASSIUM 1 capsule POTASSIUM 47392632629 No Casey Active CHLORIDE CR by mouth CHLORIDE Longer [place] 10 MEQ CPCR daily Active PA IMIPRAMINE Take 6 IMIPRAMINE 05144130050 Active Indigo Active HCL 50 MG tablets HCL Y[place]um TABS by mouth WARP HAULER at bedtime DIFLUCAN 1 tablet FLUCONAZOL 15889688929 No Joseph Active 100 MG TAB by mouth E Longer W Farooq daily Active DO VERAPAMIL 2 po bid VERAPAMIL 86800427355 Active Indigo Active HCL CR 120 HCL Yokum MG TAB CR WARP HAULER PERMETHRIN apply PERMETHRIN 31553328792 No Joseph Active 5 % CREA neck to Longer W Farooq toes Active DO tonight and then rinse off in morning. repeat at 7 days SEROQUEL XR one p.o. QUETIAPINE 59218795601 No Joseph Active 50 MG q. FUMARATE Longer W Farooq [id number] evening Active DO TRAMADOL 1-2 TRAMADOL 05677501960 No Joseph Active HCL 50 MG tablets HCL Longer W Farooq TABS every 6-8 Active DO hours as needed for pain ALPRAZOLAM one p.o. ALPRAZOLAM 71534322406 Active Indigo Active 3 MG q.h.s. Yokum [id number] WARP HAULER ALPRAZOLAM Take 1 ALPRAZOLAM 91784949224 No Joseph Active XR tablet by [id number] Longer W Farooq [id number] mouth at Active DO bedtime DIFLUCAN 1 tablet FLUCONAZOL 49705421193 No Joseph Active 100 MG TAB by mouth E Longer W Farooq daily Active DO AMBIEN 10 1 tab by ZOLPIDEM 47538319103 Active Indigo Active MG TAB mouth at TARTRATE Yokum bedtime WARP HAULER as needed for sleep DIFLUCAN 100 1 tablet DIFLUCAN 254389 FLUCONAZOLE Inactive MG TAB by mouth 100 MG TAB daily ALPRAZOLAM Take 1 ALPRAZOLAM ALPRAZOLAM Inactive XR [id number] tablet by XR [id number] mouth at [id number] bedtime TRAMADOL HCL 1-2 TRAMADOL 284514 TRAMADOL HCL Inactive 50 MG TABS tablets HCL 50 MG every 6-8 TABS hours as needed for pain SEROQUEL XR one p.o. SEROQUEL XR QUETIAPINE Inactive 50 MG q. 50 MG FUMARATE [id number] evening [id number] PERMETHRIN 5 apply PERMETHRIN 498727 PERMETHRIN Inactive % CREA neck to 5 % CREA toes tonight and then rinse off in morning. repeat at 7 days DIFLUCAN 100 1 tablet DIFLUCAN 463591 FLUCONAZOLE Inactive MG TAB by mouth 100 MG TAB daily POTASSIUM 1 capsule POTASSIUM POTASSIUM Inactive CHLORIDE CR by mouth CHLORIDE CR CHLORIDE 10 MEQ CPCR daily 10 MEQ CPCR FLUCONAZOLE one p.o. FLUCONAZOLE 19760111 FLUCONAZOLE Inactive 100 MG TABS q. day 2 100 MG TABS days TRAMADOL HCL 1 po tid TRAMADOL 625984 TRAMADOL HCL Inactive 50 MG TABS with ES HCL 50 MG Tylenol TABS NECON 1/35 1 po NECON 1/35 NORETHINDRONE- Inactive (28) 1-35 daily (28) 1-35 ETH ESTRADIOL MG-MCG TABS MG-MCG TABS CIPRO 500 MG 1 tablet CIPRO 500 391209 CIPROFLOXACIN Inactive TAB by mouth MG TAB HCL twice daily ADIPEX-P 1/2 tab ADIPEX-P 243368 PHENTERMINE Inactive 37.5 MG CAPS po q am 37.5 MG HCL for CAPS weight loss ABILIFY 2 MG 1 po q hs ABILIFY 2 435432 ARIPIPRAZOLE Inactive TABS for major MG TABS depressio n HYDROCHLOROT 2 tabs HYDROCHLORO 338070 HYDROCHLOROTHI Inactive HIAZIDE 25 every THIAZIDE 25 AZIDE MG TABS morning MG TABS ABILIFY 5 MG one p.o. ABILIFY 5 851409 ARIPIPRAZOLE Inactive TABS q. day MG TABS CIPROFLOXACI Take one CIPROFLOXAC 270115 CIPROFLOXACIN Inactive N HCL 500 MG (1) IN HCL 500 HCL TABS tablet by MG TABS mouth twice a day PROMETHAZINE 1 tab by PROMETHAZIN 344024 PROMETHAZINE Inactive HCL 25 MG mouth E HCL 25 MG HCL TABS every 6 TABS hours as needed PHENTERMINE 1 po q am PHENTERMINE 958449 PHENTERMINE Inactive HCL 37.5 MG for wt. HCL 37.5 MG HCL TABS loss TABS AMARYL 1 MG 1 tab AMARYL 1 MG 476397 GLIMEPIRIDE Inactive TABS twice TABS daily METFORMIN 1 tablet METFORMIN 957161 METFORMIN HCL Inactive HCL 500 MG by mouth HCL 500 MG TABS twice TABS daily SPIRONOLACTO 1 tablet SPIRONOLACT 903855 SPIRONOLACTONE Inactive NE 25 MG TAB by mouth ONE 25 MG daily TAB POTASSIUM 2 capsule POTASSIUM POTASSIUM Inactive CHLORIDE CR by mouth CHLORIDE CR CHLORIDE 10 MEQ CPCR daily 10 MEQ CPCR LISINOPRIL 1 tablet LISINOPRIL 833226 LISINOPRIL Inactive 20 MG TABS by mouth 20 MG TABS daily DIFLUCAN 100 1 tablet DIFLUCAN 481959 FLUCONAZOLE Inactive MG TABS by mouth 100 MG TABS every other day for 2 doses DIFLUCAN 100 1 tablet DIFLUCAN 531574 FLUCONAZOLE Inactive MG TAB by mouth 100 MG TAB daily x 3 days PREDNISONE 2 tablets PREDNISONE 341843 PREDNISONE Inactive 20 MG TAB today, 20 MG TAB then 1 tablet days 2-4 VYVANSE 20 1 tablet VYVANSE 20 LISDEXAMFETAMI Inactive MG ORAL CAPS daily for MG ORAL NE DIMESYLATE binge CAPS eating disorder TRAMADOL HCL 1/2 po TRAMADOL 757544 TRAMADOL HCL Inactive 50 MG TABS tid with HCL 50 MG ES TABS Tylenol prn pain JANUVIA 100 1 tablet JANUVIA 100 SITAGLIPTIN Inactive MG TABS by mouth MG TABS PHOSPHATE daily AMARYL 1 MG 1 tablet AMARYL 1 MG 546097 GLIMEPIRIDE Inactive ORAL TABS orally ORAL TABS twice daily METFORMIN 2 tablets METFORMIN METFORMIN HCL Inactive HCL 500 MG by mouth HCL 500 MG TB24 twice TB24 daily AMOXICILLIN 2 po BID AMOXICILLIN 979984 AMOXICILLIN Inactive 500 MG CAPS x 10 days 500 MG CAPS PREDNISONE 2 tabs PREDNISONE 288111 PREDNISONE Inactive 20 MG TAB daily for 20 MG TAB 3 days, 1 tab daily for 3 days, 1/2 tab daily for 2 days NITROFURANTO One NITROFURANT 4085220 NITROFURANTOIN Inactive IN MONOHYD capsule OIN MONOHYD MONOHYD MACRO MACRO 100 MG BID for MACRO 100 CAPS UTI MG CAPS PREDNISONE 2 pills PREDNISONE 677553 PREDNISONE Inactive 20 MG TAB daily x 4 20 MG TAB days AZITHROMYCIN 2 po qd x AZITHROMYCI 9455476 AZITHROMYCIN Inactive 250 MG TABS 1 day, [...] E&M - 3141-9 242 [lb_av] Weight Measured Diagnostic Results Date Name Value Unit Range Description Lab Report: Basic Metabolic Panel, HGBA1C - Chemistry sodium, serum 140 mmol/L 580-028 7510/06/03 potassium, serum 3.9 mmol/L 3.5-5.2 chloride, serum [...] Panel - Chemistry sodium, serum 136 mmol/L 972-554 5945/01/04 carbon dioxide, venous blood 27.0 mmol/L 21.0-32.0 potassium, serum 4.6 mmol/L 3.5-5.2 chloride, serum 98 mmol/L 98-107 blood glucose 174 mg/dL 65-110 urea nitrogen, blood 12 mg/dL 7-18 creatinine, serum 0.78 mg/dL 0.55-1.30 alanine aminotransferase (SGPT), serum 65 U/L 12-78 aspartate aminotransferase (SGOT), serum 34 U/L 15-37 calcium, serum 8.9 mg/dL 8.5-10.1 bilirubin, serum, total 0.40 mg/dL 0.00-1.00 cholesterol, serum 219 mg/dL 670-717 3359/01/04 triglyceride, serum, fasting 214 mg/dL 30-200 HDL cholesterol, serum 39 mg/dL 32-96 LDL cholesterol, serum 137 mg/dL 0-130 Lab Report: Lipid Panel - Chemistry cholesterol, serum 157 mg/dL 315-481 0069/08/22 triglyceride, serum, fasting 215 mg/dL 30-200 HDL [...] mg/dL Encounters Code Encounter Date Provider Facility CPT-41638 Level 3 Est. Patient Indigo Sexton APRN [facility] - 13:37:46 CDT [place] CPT-67635 Level 4 Est. [facility] [place] CPT-68494 Level 3 Est. 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 Patient Faby Marino [facility] 14:40:56 CDT WARP HAULER CPT-63783 Level 4 Est. Patient [facility] 17:29:53 POND SAWYER 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 CPT-42932 Level 4 Est. Patient [facility] 09:51:54 POND SAWYER CPT-50838 Level 3 Est. Patient [facility] 18:59:38 CDT CPT-50507 Level 3 Est. Patient [facility] 14:42:12 CDT -[facility] CPT-39655 Level 3 Est. Patient [facility] 22:18:20 CDT -[facility] CPT-66859 Level 3 Est. Patient Joseph Pineda [facility] 16:46:04 CDT -[facility] CPT-65658 Level 3 Est. Patient Joseph Pineda [facility] 15:39:53 CDT -[facility] CPT-50596 Level 3 Est. Patient Maite Sanchez MD PhD [facility] 13:33:34 CDT -[facility] CPT-33129 Level 3 Est. Patient Joseph Pineda [facility] 11:37:08 CDT -[facility] CPT-41744 Level 3 Est. Patient Joseph Pineda [facility] 17:13:29 POND SAWYER -[facility] CPT-08885 Level 3 Est. Patient Joseph Pineda [facility] 18:42:44 CDT CPT-47011 Level 3 Est. Patient Joseph Pineda [facility] 16:25:39 CDT CPT-05955 Level 3 Est. Patient Casey Brower [facility] 09:52:45 CDT -RHC CPT-96717 Level 3 Est. Patient Joseph Pineda [facility] 11:03:29 POND SAWYER -RHC CPT-91712 Level 3 Est. Patient [facility] 11:03:08 POND SAWYER -RHC CPT-25393 Level 3 Est. Patient [facility] 14:33:31 CDT -RHC CPT-25084 Level 3 Est. Patient [facility] 17:05:02 POND SAWYER -[facility]HC CPT-46335 Level 3 Est. Patient [facility] 17:48:06 POND SAWYER -RHC CPT-64886 Level 3 Est. Patient [facility] 14:59:22 POND SAWYER -RHC CPT-17718 Level 3 Est. Patient [facility] - 21:45:56 POND SAWYER [place] [facility] CPT-37995 Level 3 Est. Patient [facility] 21:29:50 CDT -RHC CPT-47716 Level 3 Est. Patient [facility] 12:41:09 CDT -RHC Procedures Code Procedure Name Date Entry Date Standard Description CPT-86274 Venipuncture Draw Fee 09:19:08 CDT CPT-56575 Lipid - LAB USE ONLY 09:19:07 CDT CPT-JTINJ Asp/Joint Injection 09:26:49 CDT CPT-45324 Chest 2V Frontal and Lat 14:47:43 CDT CPT-JTINJ Asp/Joint Injection 09:51:53 POND SAWYER CPT-OV Office Visit 17:39:05 CDT CPT-OV Office Visit 15:19:50 CDT CPT-43815 Sono transvag pelvis non OB uterus ovaries cervix 18:04:34 CDT CPT-70614 Venipuncture Draw Fee 08:55:49 POND SAWYER
--- OUTSIDE RECORDS SUMMARY | 2016-11-20 13:20 | External Medical Summary | Clinical Summary ---
:1965 Author Organization [facility] Address [address] [place] [address] Phone Allergies, Adverse Reactions, Alerts Allergy Name [...] Routine gynecological 12/14 12/14 [place] gynecological examination SOIL TESTER examination Postmenopausal 627.1 Active Jillina Postmenopausal bleeding 12/14 12/14 [place] bleeding SOIL TESTER ABNORMAL VAGINAL ICD-626.9 Inactive Maite Sanchez BLEEDING PhD SCABIES ICD-133.0 Inactive Maite Sanchez PhD OT GENERAL ICD-V70.3 Inactive Maite Sanchez MEDICAL PhD EXAMINATION ADMIN PURPOSES OTHER ABNORMAL ICD-790.29 Inactive Maite Sanchez GLUCOSE PhD ACUTE BRONCHITIS ICD-466.0 Inactive Maite Sanchez PhD Medication List Medication Instructions Start Stop Generic NDC Status Provider Patient Date Date Name Instruction TRAMADOL / po TRAMADOL [id number] No Jillina Active HCL 50 MG tid with HCL Longer [place] TABS ES Active SOIL TESTER Tylenol prn pain VYVANSE 20 1 tablet LISDEXAMF 04562420428 No Jillina Active MG ORAL daily for ETAMINE Longer [place] CAPS binge 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 METFORMIN 2 tablet METFORMIN 74912736217 Active Joseph W Active HCL 500 MG daily for HCL Farooq DO TB24 blood sugars LASIX 20 2 tablet FUROSEMID 34751937711 Active Joseph Pineda Active MG TAB by mouth E Farooq DO daily CELEBREX 1 tablet CELECOXIB 68997612792 Active Joseph W Active 200 MG by mouth Farooq DO CAPS daily with meals PREDNISONE 2 tablets PREDNISON 23259514533 No Joseph W Active 20 MG TAB today, E Longer Farooq DO then 1 Active tablet days 2-4 DIFLUCAN 1 tablet FLUCONAZO 31896012842 No Joseph W Active 100 MG TAB by mouth LE Longer Farooq DO daily x 3 Active days AMARYL 1 1 tablet GLIMEPIRI 55104126550 Active Joseph Pineda Active MG ORAL orally DE Farooq DO TABS twice daily DIFLUCAN 1 tablet FLUCONAZO 39399497822 No Joseph Pineda Active 100 MG by mouth LE Longer Farooq DO TABS every Active other day for 2 doses ZOFRAN 4 1 po q6hr ONDANSETR 25607933701 Active Bam Pineda Active MG TABS PRN ON HCL Dillow Nausea PREDNISONE 2 tabs PREDNISON 57278083723 No Joseph Pineda Active 20 MG TAB daily for E Longer Farooq DO 3 days, 1 Active tab daily for 3 days, 1/2 tab daily for 2 days AMOXICILLI 2 po BID AMOXICILL 63486505920 No Maite C Active N 500 MG x 10 days IN Longer Madril CAPS Active PhD LISINOPRIL 1 tablet LISINOPRI 56758438776 No Maite C Active 20 MG TABS by mouth L Longer Madril daily Active PhD POTASSIUM 2 capsule POTASSIUM 93427201820 No Joseph Pineda Active CHLORIDE by mouth CHLORIDE Longer Farooq DO CR 10 MEQ daily Active CPCR SPIRONOLAC 1 tablet SPIRONOLA 47992863037 No Joseph W Active TONE 25 MG by mouth CTONE Longer Farooq DO TAB daily Active METFORMIN 1 tablet METFORMIN 80907200977 No Joseph W Active HCL 500 MG by mouth HCL Longer Farooq DO TABS twice Active daily AMARYL 1 1 tab GLIMEPIRI 23365128321 No Joseph W Active MG TABS twice DE Longer Farooq DO daily Active PHENTERMIN 1 po q am PHENTERMI 35617204473 No Joseph W Active E HCL 37.5 for wt. NE HCL Longer Farooq DO MG TABS loss Active PROMETHAZI 1 tab by PROMETHAZ 17427254050 No Joseph W Active NE HCL 25 mouth INE HCL Longer Farooq DO MG TABS every 6 Active hours as needed CIPROFLOXA Take one CIPROFLOX 14652212719 No Joseph W Active DELORES HCL (1) ACIN HCL Longer Farooq DO 500 MG tablet by Active TABS mouth twice a day ABILIFY 5 one p.o. ARIPIPRAZ 55678395944 No Joseph W Active MG TABS q. day OLE Longer Farooq DO Active HYDROCHLOR 2 tabs HYDROCHLO 67813663786 No Joseph W Active OTHIAZIDE every ROTHIAZID Longer Farooq DO 25 MG TABS morning E Active ABILIFY 2 1 po q hs ARIPIPRAZ 70464030313 No Joseph W Active MG TABS for major OLE Longer Farooq DO depressio Active n ADIPEX-P 1/2 tab PHENTERMI 01950513000 No Casey Active 37.5 MG po q am NE HCL Longer Kulm CAPS for Active PA weight loss CIPRO 500 1 tablet CIPROFLOX 09236496946 No Casey Active MG TAB by mouth ACIN HCL Longer Kulm twice Active PA daily NECON 1/35 1 po NORETHIND 52195213662 No Casey Active (28) 1-35 daily LINDA-ETH Longer Leonarda MG-MCG ESTRADIOL Active PA TABS TRAMADOL 1 po tid TRAMADOL 18945925633 No Casey Active HCL 50 MG with ES HCL Longer Kulm TABS Tylenol Active PA FLUCONAZOL one p.o. FLUCONAZO 59235263795 No Casey Active E 100 MG q. day 2 LE Longer Leonarda TABS days Active PA POTASSIUM 1 capsule POTASSIUM 63089583698 No Casey Active CHLORIDE by mouth CHLORIDE Longer Leonarda CR 10 MEQ daily Active PA CPCR IMIPRAMINE Take 6 IMIPRAMIN 14781244093 Active Joseph Pineda Active HCL 50 MG tablets E HCL Farooq DO TABS by mouth at bedtime DIFLUCAN 1 tablet FLUCONAZO 44196033107 No Joseph W Active 100 MG TAB by mouth LE Longer Farooq DO daily Active METOPROLOL 1/2 tab METOPROLO 04120308550 Active Joseph W Active TARTRATE po bid L Farooq DO 25 MG TABS TARTRATE VERAPAMIL 2 po bid VERAPAMIL 20665192454 Active Joseph Pineda Active HCL CR 120 HCL Farooq DO MG TAB CR PERMETHRIN apply PERMETHRI 32787050841 No Joseph Pineda Active 5 % CREA neck to N Longer Farooq DO toes Active tonight and then rinse off in morning. repeat at 7 days SEROQUEL one p.o. QUETIAPIN 02554637845 No Joseph W Active XR 50 MG q. E Longer Farooq DO [id number] evening FUMARATE Active TRAMADOL 1-2 TRAMADOL 31979818273 No Joseph W Active HCL 50 MG tablets HCL Longer Farooq DO TABS every 6-8 Active hours as needed for pain ALPRAZOLAM one p.o. ALPRAZOLA 71259703579 Active Joseph W Active 3 MG q.h.s. M Farooq DO [id number] ALPRAZOLAM Take 1 ALPRAZOLA 25536281641 No Joseph W Active XR tablet by M Longer Farooq DO [id number] mouth at [id number] Active bedtime DIFLUCAN 1 tablet FLUCONAZO 12328630363 No Joseph W Active 100 MG TAB by mouth MAGNO Longer Farooq DO daily Active AMBIEN 10 1 tab by ZOLPIDEM 99246324758 Active Joseph W Active MG TAB mouth at TARTRATE Farooq DO bedtime as needed for sleep DIFLUCAN 100 1 tablet DIFLUCAN 436578 FLUCONAZOLE Inactive MG TAB by mouth 100 MG TAB daily ALPRAZOLAM Take 1 ALPRAZOLAM ALPRAZOLAM Inactive XR [id number] tablet by XR [id number] mouth at [id number] bedtime TRAMADOL HCL 1-2 TRAMADOL 507326 TRAMADOL HCL Inactive 50 MG TABS tablets HCL 50 MG every 6-8 TABS hours as needed for pain SEROQUEL XR one p.o. SEROQUEL XR QUETIAPINE Inactive 50 MG q. evening 50 MG FUMARATE [id number] PERMETHRIN 5 apply neck PERMETHRIN 484128 PERMETHRIN Inactive % CREA to toes 5 % CREA tonight and then rinse off in morning. repeat at 7 days DIFLUCAN 100 1 tablet DIFLUCAN 222984 FLUCONAZOLE Inactive MG TAB by mouth 100 MG TAB daily POTASSIUM 1 capsule POTASSIUM POTASSIUM Inactive CHLORIDE CR by mouth CHLORIDE CR CHLORIDE 10 MEQ CPCR daily 10 MEQ CPCR FLUCONAZOLE one p.o. FLUCONAZOLE 19760111 FLUCONAZOLE Inactive 100 MG TABS q. day 2 100 MG TABS days TRAMADOL HCL 1 po tid TRAMADOL 783030 TRAMADOL HCL Inactive 50 MG TABS with ES HCL 50 MG Tylenol TABS NECON 1/35 1 po daily NECON 1/35 NORETHINDRONE- Inactive (28) 1-35 (28) 1-35 ETH ESTRADIOL MG-MCG TABS MG-MCG TABS CIPRO 500 MG 1 tablet CIPRO 500 203484 CIPROFLOXACIN Inactive TAB by mouth MG TAB HCL twice daily ADIPEX-P 1/2 tab po ADIPEX-P 464299 PHENTERMINE Inactive 37.5 MG CAPS q am for 37.5 MG HCL weight CAPS loss ABILIFY 2 MG 1 po q hs ABILIFY 2 486685 ARIPIPRAZOLE Inactive TABS for major MG TABS depression HYDROCHLOROT 2 tabs HYDROCHLORO 597608 HYDROCHLOROTHI Inactive HIAZIDE 25 every THIAZIDE 25 AZIDE MG TABS morning MG TABS ABILIFY 5 MG one p.o. ABILIFY 5 798831 ARIPIPRAZOLE Inactive TABS q. day MG TABS CIPROFLOXACI Take one CIPROFLOXAC 531930 CIPROFLOXACIN Inactive N HCL 500 MG (1) tablet IN HCL 500 HCL TABS by mouth MG TABS twice a day PROMETHAZINE 1 tab by PROMETHAZIN 826343 PROMETHAZINE Inactive HCL 25 MG mouth E HCL 25 MG HCL TABS every 6 TABS hours as needed PHENTERMINE 1 po q am PHENTERMINE 205249 PHENTERMINE Inactive HCL 37.5 MG for wt. HCL 37.5 MG HCL TABS loss TABS AMARYL 1 MG 1 tab AMARYL 1 MG 268434 GLIMEPIRIDE Inactive TABS twice TABS daily METFORMIN 1 tablet METFORMIN 548658 METFORMIN HCL Inactive HCL 500 MG by mouth HCL 500 MG TABS twice TABS daily SPIRONOLACTO 1 tablet SPIRONOLACT 780727 SPIRONOLACTONE Inactive NE 25 MG TAB by mouth ONE 25 MG daily TAB POTASSIUM 2 capsule POTASSIUM POTASSIUM Inactive CHLORIDE CR by mouth CHLORIDE CR CHLORIDE 10 MEQ CPCR daily 10 MEQ CPCR LISINOPRIL 1 tablet LISINOPRIL 007588 LISINOPRIL Inactive 20 MG TABS by mouth 20 MG TABS daily DIFLUCAN 100 1 tablet DIFLUCAN 464296 FLUCONAZOLE Inactive MG TABS by mouth 100 MG TABS every other day for 2 doses DIFLUCAN 100 1 tablet DIFLUCAN 081696 FLUCONAZOLE Inactive MG TAB by mouth 100 MG TAB daily x 3 days PREDNISONE 2 tablets PREDNISONE 783294 PREDNISONE Inactive 20 MG TAB today, 20 MG TAB then 1 tablet days 2-4 VYVANSE 20 1 tablet VYVANSE 20 LISDEXAMFETAMI Inactive MG ORAL CAPS daily for MG ORAL NE DIMESYLATE binge CAPS eating disorder TRAMADOL HCL 1/2 po tid TRAMADOL 589934 TRAMADOL HCL Inactive 50 MG TABS with ES HCL 50 MG Tylenol TABS prn pain AMOXICILLIN 2 po BID x AMOXICILLIN 898172 AMOXICILLIN Inactive 500 MG CAPS 10 days 500 MG CAPS PREDNISONE 2 tabs PREDNISONE 383672 PREDNISONE Inactive 20 MG TAB daily for [...] Panel - Chemistry sodium, serum 137 mmol/L 286-943 2587/08/29 potassium, serum 4.1 mmol/L 3.5-5.2 chloride, serum 100 mmol/L 98-107 carbon dioxide, venous blood 31.1 mmol/L 21.0-32.0 blood glucose 138 mg/dL 65-110 calcium, serum 9.2 mg/dL 8.5-10.1 urea nitrogen, blood 9 mg/dL 7-18 creatinine, serum 0.80 mg/dL 0.60-1.30 Lab Report: CBC, Comp. Metabolic Panel, HGBA1C - Chemistry sodium, serum 140 mmol/L 201-021 3765/04/13 potassium, serum 3.9 mmol/L 3.5-5.2 chloride, serum [...] 219 10^3/MM^3 10*3/mm3 142-424 Lab Report: Chlamydia/GC APTIMA/[id number] - Lab chlamydia DNA probe NOT DETECTED NOT DETECTED Lab Report: Chlamydia/GC APTIMA/[id number] - Microbiology Neisseria gonorrhoeae DNA probe NOT [...] mg/g mg/g{creat} 0-29 sodium, serum 140 mmol/L 663-592 7522/07/21 potassium, serum 3.9 mmol/L 3.5-5.2 chloride, serum [...] 142-424 Encounters Code Encounter Date Provider Facility CPT-42634 Level 3 Est. Patient Joseph Pineda [facility]:42:12 [facility] Level 3 Est. Patient Joseph Pineda [facility] 22:18:20 [facility] -[facility] CPT-46541 Level 3 Est. Patient Joseph Pineda [facility] 16:46:04 CDT -[facility] CPT-71113 Level 3 Est. Patient Joseph Pineda [facility] 15:39:53 CDT -[facility] CPT-45180 Level 3 Est. Patient Maite Sanchez MD [facility] 13:33:34 CDT -[facility] CPT-04177 Level 3 Est. Patient Joseph Pineda [facility] 11:37:08 CDT -[facility] CPT-99080 Level 3 Est. Patient Joseph Pineda [facility] 17:13:29 [employer] -[facility] CPT-12567 Level 3 Est. Patient Joseph Pineda [facility] 18:42:44 CDT CPT-85457 Level 3 Est. Patient Joseph Edwin [facility] 16:25:39 CDT CPT-91932 Level 3 Est. Patient Casey Brower [facility] 09:52:45 CDT -[facility] CPT-16737 Level 3 Est. Patient Joseph Edwin [facility] 11:03:29 [employer] -[facility] CPT-43486 Level 3 Est. Patient Joseph Pineda [facility] 11:03:08 [employer] -[facility] CPT-23060 Level 3 Est. Patient Joseph Pineda [facility] 14:33:31 CDT -[facility] CPT-93539 Level 3 Est. Patient Joseph Pineda [facility] 17:05:02 [employer] -[facility] CPT-10263 Level 3 Est. Patient Joseph Edwin [facility] 17:48:06 [employer] -[facility] CPT-61092 Level 3 Est. Patient oJseph Pineda [facility] 14:59:22 [employer] -[facility] CPT-62232 Level 3 Est. Patient Joseph Edwin [facility] - 21:45:56 [employer] PERSON [place] [facility] CPT-00998 Level 3 Est. Patient Joseph Pineda [facility] 21:29:50 [facility] CPT-13004 Level 3 Est. Patient Joseph Pineda [facility] 12:41:09 [facility] Procedures Code Procedure Name Date Entry Date Standard Description CPT-38209 Venipuncture Draw Fee 08:55:49 [employer]
--- OUTSIDE RECORDS SUMMARY | 2016-11-20 13:21 | External Medical Summary | Clinical Summary ---
:1965 Author Organization [facility] [employer] Address [address] [address] Phone Allergies, Adverse Reactions, Alerts Allergy Name Reaction Description Start Date Severity Status Provider NKDA Critical Active Indigo Yonickieum WOODS LABORER NKDA Critical No Longer Indigo Yokum WOODS LABORER Active NKDA Critical Inactive Adrianna Elder Conditions [...] SCABIES 133.0 Resolved Maite Gutierrez Scabies 06/23 Larua ONEAL PhD HYPERTENSION 401.9 Active Joseph Pineda Unspecified 05/24 Farooq DO essential hypertension FATIGUE 780.79 Resolved Indigo Other malaise 05/24 07/02 Yokum WOODS LABORER and fatigue SLEEP APNEA, 327.23 Active Joseph Pineda Obstructive OBSTRUCTIVE, 06/27 06/27 Farooq DO sleep apnea MILD (adult) (pediatric) OVERWEIGHT 278.02 Inactive Joseph Pineda Overweight 06/28 06/28 Farooq DO Obesity 278.00 Active Indigo Obesity, 06/28 10/18 Yokum WOODS LABORER unspecified OTH GENERAL V70.3 Resolved Maite Gutierrez Other general MEDICAL Laura ONEAL medical EXAMINATION PhD examination for ADMIN PURPOSES administrative purposes OTHER ABNORMAL 790.29 Resolved Maite C Other abnormal GLUCOSE 05/20 Laura ONEAL glucose PhD ACUTE 466.0 Resolved Maite C Acute BRONCHITIS 09/02 Laura ONEAL bronchitis PhD DEPENDENT 782.3 Resolved Indigo Edema EDEMA, LEGS, 10/29 10/18 Yokum WOODS LABORER BILATERAL HYPOKALEMIA, 276.8 Resolved Indigo Hypopotassemia MILD 10/29 07/02 Youm WOODS LABORER Diabetes, Type 250.00 Inactive Joseph Pineda Diabetes 2 06/27 06/27 Farooq DO mellitus without mention of complication, type II or unspecified type, not stated as uncontrolled Diabetes 250.02 Resolved Indigo Diabetes mellitus, type 06/27 WOODS LABORER mellitus II, without mention uncontrolled of complication, [...] Resolved Indigo Routine gynecological 12/14 07/02 Yo WOODS LABORER gynecological examination examination Postmenopausal 627.1 Resolved Indigo Postmenopausal bleeding 12/14 WOODS LABORER bleeding Screening for V76.51 Resolved Indigo Screening for malignant 12/26 07/02 Yokum WOODS LABORER malignant neoplasms of neoplasms of colon colon Insomnia, 307.42 Active Indigo 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 WOODS LABORER disorder of initiating or maintaining sleep Establish care V68.89 Resolved Indigo Encounters for or get 01/16 07/02 Yo WOODS LABORER other specified acquainted administrative visit purpose Weakness, left 342.90 Resolved Indigo Hemiplegia, side of body 06/20 10/18 Yokum WOODS LABORER unspecified, affecting unspecified side TIA 435.9 Active Indigo Unspecified 06/20 07/02 Yokum WOODS LABORER transient cerebral ischemia Knee pain, 719.46 Active Indigo Pain in joint bilateral 06/20 10/18 Yokum WOODS LABORER involving lower leg Bronchitis 490 Resolved Indigo Bronchitis, not 07/23 10/18 Yokum WOODS LABORER specified as acute or chronic Diabetes 357.2 Active Maliheh Polyneuropathy mellitus, 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VALUE ANALYSIS COORDINATOR 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y Knee pain, 719.46 Active Indigo Pain in joint right 06/20 10/18 Yokum WOODS LABORER involving lower leg Jesi 112.3 Active Indigo Candidiasis of intertrigo 10/09 10/18 Yokum WOODS LABORER skin and nails Hyperlipidemia 272.4 Active Anne Other and 12/24 12/24 Neil unspecified RMA hyperlipidemia Incontinence, 788.33 Active Indigo Mixed mixed, 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 WOODS LABORER incontinence urge/stress (female) (male) Female stress 625.6 Active Yury AnthonyCarlos Enrique Stress incontinence 01/03 01/03 Cy patel MD female ABNORMAL VAGINAL ICD-626.9 Inactive Maite Sanchez BLEEDING PhD SCABIES ICD-133.0 Inactive Maite Sanchez PhD FATIGUE ICD-780.79 Inactive Indigo Yokum WOODS LABORER OTH GENERAL ICD-V70.3 Inactive Maite Sanchez MEDICAL PhD EXAMINATION ADMIN PURPOSES OTHER ABNORMAL ICD-790.29 Inactive Maite Sanchez GLUCOSE PhD ACUTE BRONCHITIS ICD-466.0 Inactive Maite Matt Sanchez PhD DEPENDENT EDEMA, ICD-782.3 Inactive Indigo Yokum LEGS, BILATERAL WOODS LABORER HYPOKALEMIA, MILD ICD-276.8 Inactive Indigo Yokum WOODS LABORER Diabetes mellitus, ICD-250.02 Inactive Indigo Yokum type II, WOODS LABORER uncontrolled Sinusitis, ICD-461.1 Inactive Ismael Coyne frontal, acute Amnadeep ONEAL Laryngitis, acute ICD-464.00 Inactive Ismael Coyne Amandeep ONEAL Routine ICD-V72.31 Inactive Indigo Yokum gynecological WOODS LABORER examination Postmenopausal ICD-627.1 Inactive Indigo Yokum 2015 bleeding WOODS LABORER Screening for ICD-V76.51 Inactive Indigo Yokum 2015 malignant WOODS LABORER neoplasms of colon Establish care or ICD-V68.89 Inactive Indigo Yokum get acquainted WOODS LABORER visit Weakness, left ICD-342.90 Inactive Indigo Yokum side of body WOODS LABORER Bronchitis ICD-490 Inactive Indigo Yokum WOODS LABORER Medication List Medication Instructions Start Stop Generic NDC Status Provider Patient Date Date Name Instruction METFORMIN 2 tablets METFORMIN 03356374767 No Indigo Active HCL 500 MG by mouth HCL Longer Yokum TB24 twice Active WOODS LABORER daily AMARYL 1 MG 1 tablet GLIMEPIRID 89056375494 No Indigo Active ORAL TABS orally E Longer Yokum twice Active WOODS LABORER daily NYSTATIN apply to NYSTATIN 52470409159 Active Indigo Active 206868 rash TID Yokum UNIT/GM PRN WOODS LABORER CREA TROKENDI XR 2 tab TOPIRAMATE 12888009261 Active Malihe Active 100 MG ORAL daily h [id number] Ziglar i VALUE ANALYSIS COORDINATOR METOPROLOL 1 tab po METOPROLOL 16527627106 Active Indigo Active TARTRATE 25 bid TARTRATE Yokum MG TABS WOODS LABORER AZITHROMYCI 2 po qd x AZITHROMYC 76345500706 No Jillin Active N 250 MG 1 day, IN Longer a TABS then 1 po Active Frazel qd x 4 l WOODS LABORER days PREDNISONE 2 pills PREDNISONE 83811663552 No Jillin Active 20 MG TAB daily x 4 Longer a days Active Frazel l WOODS LABORER PIOGLITAZON take one PIOGLITAZO 76012733280 Active Malihe Active E HCL 30 MG a day NE HCL h ORAL TABS Ziglar i VALUE ANALYSIS COORDINATOR JANUVIA 100 1 tablet SITAGLIPTI 76339773422 No Indigo Active MG TABS by mouth N Longer Yokum daily PHOSPHATE Active WOODS LABORER ATORVASTATI 1 pill by ATORVASTAT 80020343333 Active Indigo Active N CALCIUM mouth IN CALCIUM Yokum 10 MG TABS nightly, WOODS LABORER for cholester ol ASPIRIN 81 1 po qd ASPIRIN 46057333789 Active Indigo Active MG ORAL Yokum TABS WOODS LABORER NITROFURANT One NITROFURAN 26653758980 No Indigo Active OIN MONOHYD capsule TOIN Longer Yokum MACRO 100 BID for MONOHYD Active WOODS LABORER MG CAPS UTI MACRO TRAMADOL 1/2 po TRAMADOL 21278372500 No Jillin Active HCL 50 MG tid with HCL Longer a TABS ES Active Frazel Tylenol l WOODS LABORER prn pain VYVANSE 20 1 tablet LISDEXAMFE 35758892760 No Jillin Active MG ORAL daily for TAMINE Longer a CAPS binge DIMESYLATE Active Frazel eating l WOODS LABORER disorder LASIX 20 MG 2 tablet FUROSEMIDE 58500121665 Active Indigo Active TAB by mouth Yokum daily WOODS LABORER CELEBREX 1 tablet CELECOXIB 08733634012 Active Indigo Active 200 MG CAPS by mouth Yokum daily WOODS LABORER with meals PREDNISONE 2 tablets PREDNISONE 53562875350 No Joseph Active 20 MG TAB today, Longer W Farooq then 1 Active DO tablet days 2-4 DIFLUCAN 1 tablet FLUCONAZOL 78240200073 No Joseph Active 100 MG TAB by mouth E Longer W Farooq daily x 3 Active DO days DIFLUCAN 1 tablet FLUCONAZOL 64604768536 No Joseph Active 100 MG TABS by mouth E Longer W Farooq every Active DO other day for 2 doses ZOFRAN 4 MG 1 po q6hr ONDANSETRO 76399291454 Active Joseph Active TABS PRN N HCL W Farooq Nausea DO PREDNISONE 2 tabs PREDNISONE 38978228316 No Joseph Active 20 MG TAB daily for Longer W Farooq 3 days, 1 Active DO tab daily for 3 days, 1/2 tab daily for 2 days AMOXICILLIN 2 po BID AMOXICILLI 75431647575 No Maite C Active 500 MG CAPS x 10 days N Longer Madril Active PhD LISINOPRIL 1 tablet LISINOPRIL 15585192884 No Maite C Active 20 MG TABS by mouth Longer Madril daily Active PhD POTASSIUM 2 capsule POTASSIUM 05459451639 No Joseph Active CHLORIDE CR by mouth CHLORIDE Longer W Farooq 10 MEQ CPCR daily Active DO SPIRONOLACT 1 tablet SPIRONOLAC 96717534128 No Joseph Active ONE 25 MG by mouth TONE Longer W Farooq TAB daily Active DO METFORMIN 1 tablet METFORMIN 42105969236 No Joseph Active HCL 500 MG by mouth HCL Longer W Farooq TABS twice Active DO daily AMARYL 1 MG 1 tab GLIMEPIRID 92337828083 No Joseph Active TABS twice E Longer W Farooq daily Active DO PHENTERMINE 1 po q am PHENTERMIN 36465079905 No Joseph Active HCL 37.5 MG for wt. E HCL Longer W Farooq TABS loss Active DO PROMETHAZIN 1 tab by PROMETHAZI 27231997301 No Joseph Active E HCL 25 MG mouth NE HCL Longer W Farooq TABS every 6 Active DO hours as needed CIPROFLOXAC Take one CIPROFLOXA 89187122734 No Joseph Active IN HCL 500 (1) DELORES HCL Longer W Farooq MG TABS tablet by Active DO mouth twice a day ABILIFY 5 one p.o. ARIPIPRAZO 37531118290 No Joseph Active MG TABS q. day LE Longer W Farooq Active DO HYDROCHLORO 2 tabs HYDROCHLOR 53224812639 No Joseph Active THIAZIDE 25 every OTHIAZIDE Longer W Farooq MG TABS morning Active DO ABILIFY 2 1 po q hs ARIPIPRAZO 78585862309 No Joseph Active MG TABS for major LE Longer W Farooq depressio Active DO n ADIPEX-P 1/2 tab PHENTERMIN 55271396564 No Casey Active 37.5 MG po q am E HCL Longer [place] CAPS for Active PA weight loss CIPRO 500 1 tablet CIPROFLOXA 01716631133 No Casey Active MG TAB by mouth DELORES HCL Longer [place] twice Active PA daily NECON 1/35 1 po NORETHINDR 47053113954 No Casey Active (28) 1-35 daily ONE-ETH Longer [place] MG-MCG TABS ESTRADIOL Active PA TRAMADOL 1 po tid TRAMADOL 72858598741 No Casey Active HCL 50 MG with ES HCL Longer [place] TABS Tylenol Active PA FLUCONAZOLE one p.o. FLUCONAZOL 21605780365 No Casey Active 100 MG TABS q. day 2 E Longer [place] days Active PA POTASSIUM 1 capsule POTASSIUM 15642205983 No Casey Active CHLORIDE CR by mouth CHLORIDE Longer 10 MEQ CPCR daily Active PA IMIPRAMINE Take 6 IMIPRAMINE 71200593870 Active Indigo Active HCL 50 MG tablets HCL Yokum TABS by mouth WOODS LABORER at bedtime DIFLUCAN 1 tablet FLUCONAZOL 85420563029 No Joseph Active 100 MG TAB by mouth E Longer W Farooq daily Active DO VERAPAMIL 2 po bid VERAPAMIL 68518823858 Active Indigo Active HCL CR 120 HCL Yokum MG TAB CR WOODS LABORER PERMETHRIN apply PERMETHRIN 84889983383 No Joseph Active 5 % CREA neck to Longer W Farooq toes Active DO tonight and then rinse off in morning. repeat at 7 days SEROQUEL XR one p.o. QUETIAPINE 44047921034 No Joseph Active 50 MG q. FUMARATE Longer W Farooq [id number] evening Active DO TRAMADOL 1-2 TRAMADOL 72483510306 No Joseph Active HCL 50 MG tablets HCL Longer W Farooq TABS every 6-8 Active DO hours as needed for pain ALPRAZOLAM one p.o. ALPRAZOLAM 21217888959 Active Indigo Active 3 MG q.h.s. Yokum [id number] WOODS LABORER ALPRAZOLAM Take 1 ALPRAZOLAM 29198075220 No Joseph Active XR tablet by [id number] Longer W Farooq [id number] mouth at Active DO bedtime DIFLUCAN 1 tablet FLUCONAZOL 24437372111 No Joseph Active 100 MG TAB by mouth E Longer W Farooq daily Active DO AMBIEN 10 1 tab by ZOLPIDEM 51439284146 Active Indigo Active MG TAB mouth at TARTRATE Yokum bedtime WOODS LABORER as needed for sleep DIFLUCAN 100 1 tablet DIFLUCAN 006043 FLUCONAZOLE Inactive MG TAB by mouth 100 MG TAB daily ALPRAZOLAM Take 1 ALPRAZOLAM ALPRAZOLAM Inactive XR [id number] tablet by XR [id number] mouth at [id number] bedtime TRAMADOL HCL 1-2 TRAMADOL 718543 TRAMADOL HCL Inactive 50 MG TABS tablets HCL 50 MG every 6-8 TABS hours as needed for pain SEROQUEL XR one p.o. SEROQUEL XR QUETIAPINE Inactive 50 MG q. 50 MG FUMARATE [id number] evening [id number] PERMETHRIN 5 apply PERMETHRIN 160155 PERMETHRIN Inactive % CREA neck to 5 % CREA toes tonight and then rinse off in morning. repeat at 7 days DIFLUCAN 100 1 tablet DIFLUCAN 839917 FLUCONAZOLE Inactive MG TAB by mouth 100 MG TAB daily POTASSIUM 1 capsule POTASSIUM POTASSIUM Inactive CHLORIDE CR by mouth CHLORIDE CR CHLORIDE 10 MEQ CPCR daily 10 MEQ CPCR FLUCONAZOLE one p.o. FLUCONAZOLE 233139 FLUCONAZOLE Inactive 100 MG TABS q. day 2 100 MG TABS days TRAMADOL HCL 1 po tid TRAMADOL 518431 TRAMADOL HCL Inactive 50 MG TABS with ES HCL 50 MG Tylenol TABS NECON 1/35 1 po NECON 1/35 NORETHINDRONE- Inactive (28) 1-35 daily (28) 1-35 ETH ESTRADIOL MG-MCG TABS MG-MCG TABS CIPRO 500 MG 1 tablet CIPRO 500 650898 CIPROFLOXACIN Inactive TAB by mouth MG TAB HCL twice daily ADIPEX-P 1/2 tab ADIPEX-P 485011 PHENTERMINE Inactive 37.5 MG CAPS po q am 37.5 MG HCL for CAPS weight loss ABILIFY 2 MG 1 po q hs ABILIFY 2 473457 ARIPIPRAZOLE Inactive TABS for major MG TABS depressio n HYDROCHLOROT 2 tabs HYDROCHLORO 034974 HYDROCHLOROTHI Inactive HIAZIDE 25 every THIAZIDE 25 AZIDE MG TABS morning MG TABS ABILIFY 5 MG one p.o. ABILIFY 5 599842 ARIPIPRAZOLE Inactive TABS q. day MG TABS CIPROFLOXACI Take one CIPROFLOXAC 691796 CIPROFLOXACIN Inactive N HCL 500 MG (1) IN HCL 500 HCL TABS tablet by MG TABS mouth twice a day PROMETHAZINE 1 tab by PROMETHAZIN 965128 PROMETHAZINE Inactive HCL 25 MG mouth E HCL 25 MG HCL TABS every 6 TABS hours as needed PHENTERMINE 1 po q am PHENTERMINE 777638 PHENTERMINE Inactive HCL 37.5 MG for wt. HCL 37.5 MG HCL TABS loss TABS AMARYL 1 MG 1 tab AMARYL 1 MG 322422 GLIMEPIRIDE Inactive TABS twice TABS daily METFORMIN 1 tablet METFORMIN 090102 METFORMIN HCL Inactive HCL 500 MG by mouth HCL 500 MG TABS twice TABS daily SPIRONOLACTO 1 tablet SPIRONOLACT 548999 SPIRONOLACTONE Inactive NE 25 MG TAB by mouth ONE 25 MG daily TAB POTASSIUM 2 capsule POTASSIUM POTASSIUM Inactive CHLORIDE CR by mouth CHLORIDE CR CHLORIDE 10 MEQ CPCR daily 10 MEQ CPCR LISINOPRIL 1 tablet LISINOPRIL 420741 LISINOPRIL Inactive 20 MG TABS by mouth 20 MG TABS daily DIFLUCAN 100 1 tablet DIFLUCAN 19760111 FLUCONAZOLE Inactive MG TABS by mouth 100 MG TABS every other day for 2 doses DIFLUCAN 100 1 tablet DIFLUCAN 675035 FLUCONAZOLE Inactive MG TAB by mouth 100 MG TAB daily x 3 days PREDNISONE 2 tablets PREDNISONE 353594 PREDNISONE Inactive 20 MG TAB today, 20 MG TAB then 1 tablet days 2-4 VYVANSE 20 1 tablet VYVANSE 20 LISDEXAMFETAMI Inactive MG ORAL CAPS daily for MG ORAL NE DIMESYLATE binge CAPS eating disorder TRAMADOL HCL 1/2 po TRAMADOL 931294 TRAMADOL HCL Inactive 50 MG TABS tid with HCL 50 MG ES TABS Tylenol prn pain JANUVIA 100 1 tablet JANUVIA 100 SITAGLIPTIN Inactive MG TABS by mouth MG TABS PHOSPHATE daily AMARYL 1 MG 1 tablet AMARYL 1 MG 443449 GLIMEPIRIDE Inactive ORAL TABS orally ORAL TABS twice daily METFORMIN 2 tablets METFORMIN METFORMIN HCL Inactive HCL 500 MG by mouth HCL 500 MG TB24 twice TB24 daily AMOXICILLIN 2 po BID AMOXICILLIN 305106 AMOXICILLIN Inactive 500 MG CAPS x 10 days 500 MG CAPS PREDNISONE 2 tabs PREDNISONE 864276 PREDNISONE Inactive 20 MG TAB daily for 20 MG TAB 3 days, 1 tab daily for 3 days, 1/2 tab daily for 2 days NITROFURANTO One NITROFURANT 9360440 NITROFURANTOIN Inactive IN MONOHYD capsule OIN MONOHYD MONOHYD MACRO MACRO 100 MG BID for MACRO 100 CAPS UTI MG CAPS PREDNISONE 2 pills PREDNISONE 095646 PREDNISONE Inactive 20 MG TAB daily x 4 20 MG TAB days AZITHROMYCIN 2 po qd x AZITHROMYCI 7388971 AZITHROMYCIN Inactive 250 MG TABS 1 day, [...] HGBA1C - Chemistry sodium, serum 140 mmol/L 536-598 5393/06/03 potassium, serum 3.9 mmol/L 3.5-5.2 chloride, serum [...] Panel - Chemistry sodium, serum 136 mmol/L 492-313 3758/01/04 carbon dioxide, venous blood 27.0 mmol/L 21.0-32.0 potassium, serum 4.6 mmol/L 3.5-5.2 chloride, serum 98 mmol/L 98-107 blood glucose 174 mg/dL 65-110 urea nitrogen, blood 12 mg/dL 7-18 creatinine, serum 0.78 mg/dL 0.55-1.30 alanine aminotransferase (SGPT), serum 65 U/L 12-78 aspartate aminotransferase (SGOT), serum 34 U/L 15-37 calcium, serum 8.9 mg/dL 8.5-10.1 bilirubin, serum, total 0.40 mg/dL 0.00-1.00 cholesterol, serum 219 mg/dL 838-338 6549/01/04 triglyceride, serum, fasting 214 mg/dL 30-200 HDL cholesterol, serum 39 mg/dL 32-96 LDL cholesterol, serum 137 mg/dL 0-130 Lab Report: Lipid Panel - Chemistry cholesterol, serum 157 mg/dL 528-095 5789/08/22 triglyceride, serum, fasting 215 mg/dL 30-200 HDL [...] mg/dL Encounters Code Encounter Date Provider Facility CPT-43123 Level 4 New Patient Yury Benoit MD [facility] 15:17:12 CDT CPT-40380 Level 3 Est. Patient [facility] - 13:37:46 CDT [place] CPT-53774 Level 4 Est. Patient [facility] - 10:01:06 CDT [place] CPT-74526 Level 3 Est. Patient [facility] 08:58:07 CDT VALUE ANALYSIS COORDINATOR CPT-34631 Level 3 Est[facility] CPT-91142 Level 4 Est. Patient [facility] 17:29:53 FINGERPRINT TECHNICIAN VALUE ANALYSIS COORDINATOR CPT-89317 Level 4 Est. Patient [facility] 09:51:54 FINGERPRINT TECHNICIAN CPT-89811 Level 3 Est. Patient [facility] 18:59:38 CDT CPT-68172 Level 3 Est. Patient Joseph Pineda [facility] 14:42:12 CDT -[facility] CPT-03703 Level 3 Est. Patient Joseph Pineda [facility] 22:18:20 CDT -[facility] CPT-05506 Level 3 Est. Patient Joseph [facility] 16:46:04 CDT -[facility] CPT-00411 Level 3 Est. Patient Joseph [facility] 15:39:53 CDT -[facility] CPT-40072 Level 3 Est. Patient Maite Sanchez MD [facility] 13:33:34 CDT -[facility] CPT-66365 Level 3 Est. Patient Joseph Pineda [facility] 11:37:08 CDT -[facility] CPT-72606 Level 3 Est. Patient Joseph Pineda [facility] 17:13:29 FINGERPRINT TECHNICIAN -[facility]HC CPT-89566 Level 3 Est. Patient Joseph Pineda [facility] 18:42:44 CDT CPT-60252 Level 3 Est. Patient Joseph [facility] 16:25:39 CDT CPT-02915 Level 3 Est. Patient Casey Brower [facility] 09:52:45 CDT -[facility] CPT-15680 Level 3 Est. Patient Joseph Pineda [facility] 11:03:29 FINGERPRINT TECHNICIAN -RHC CPT-39827 Level 3 Est. Patient Joseph [facility] 11:03:08 FINGERPRINT TECHNICIAN -RHC CPT-04009 Level 3 Est. Patient Joseph [facility] 14:33:31 CDT -[facility] CPT-59863 Level 3 Est. Patient Joseph [facility] 17:05:02 FINGERPRINT TECHNICIAN -RHC CPT-60830 Level 3 Est. Patient Joseph [facility] 17:48:06 FINGERPRINT TECHNICIAN -RHC CPT-27517 Level 3 Est. Patient Joseph [facility] 14:59:22 FINGERPRINT TECHNICIAN -RHC CPT-90233 Level 3 Est. Patient Josehp [facility] - 21:45:56 FINGERPRINT TECHNICIAN [place] [facility] CPT-33409 Level 3 Est. Patient Joseph [facility] 21:29:50 CDT -RHC CPT-52851 Level 3 Est. Patient Binford [facility] 12:41:09 CDT -[facility] Procedures Code Procedure Name Date Entry Date Standard Description CPT-72117 Postop F/U Visit 18:20:10 CDT CPT-A4351 Coloplast Female Cath 09:37:10 CDT CPT-11725 Urine Dip (Floor Use Only) 15:17:13 CDT CPT-40138 Dil F ureth int 15:17:13 CDT CPT-15426 Venipuncture Draw Fee 09:19:08 CDT CPT-76452 Lipid - LAB USE ONLY 09:19:07 CDT CPT-JTINJ Asp/Joint Injection 09:26:49 CDT CPT-21297 Chest 2V Frontal and Lat 14:47:43 CDT CPT-JTINJ Asp/Joint Injection 09:51:53 FINGERPRINT TECHNICIAN CPT-OV Office Visit 17:39:05 CDT CPT-OV Office Visit 15:19:50 CDT CPT-07751 Sono transvag pelvis non OB uterus ovaries cervix 18:04:34 CDT CPT-75411 Venipuncture Draw Fee 08:55:49 FINGERPRINT TECHNICIAN
--- OUTSIDE RECORDS SUMMARY | 2016-11-20 13:21 | External Medical Summary | Clinical Summary ---
:1965 Author Organization [facility] Address [address] [address] Phone Allergies, Adverse Reactions, Alerts Allergy Name Reaction Description Start Date Severity Status Provider VERSED States jsut about Critical Active Gloria Saavedra HOME APPLIANCE INSTALLER killed her NKDA Critical Active Indigo Yokum ASSOCIATE JUSTICE NKDA Critical No Longer Indigo Yokum ASSOCIATE JUSTICE Active NKDA Critical Inactive Adrianna Elder Conditions or Problems Problem Name Problem Onset Status Entry Provider Comment Standard Annotate Code Date Date Description ABNORMAL 626.9 Resolved Maite Gutierrez Unspecified VAGINAL Laura ONAEL disorders of BLEEDING PhD menstruation and other [...] Resolved Indigo Other malaise 05/24 07/02 [facility] ASSOCIATE JUSTICE and fatigue SLEEP APNEA, 327.23 Active Joseph Pineda Obstructive OBSTRUCTIVE, 06/27 06/27 Farooq DO sleep apnea MILD (adult) (pediatric) OVERWEIGHT 278.02 Inactive Joseph Pineda Overweight 06/28 06/28 Farooq DO Obesity 278.00 Active Indigo Obesity, 06/28 10/18 [facility] ASSOCIATE JUSTICE unspecified OTH GENERAL V70.3 Resolved Maite Gutierrez Other general MEDICAL Laura ONEAL medical EXAMINATION PhD examination for ADMIN administrative PURPOSES purposes OTHER 790.29 Resolved Maite C Other abnormal ABNORMAL 05/20 Laura ONEAL glucose GLUCOSE PhD ACUTE 466.0 Resolved Maite Gutierrez Acute bronchitis BRONCHITIS 09/02 Laura ONEAL PhD DEPENDENT 782.3 Resolved Indigo Edema EDEMA, LEGS, 10/29 10/18 [employer] ASSOCIATE JUSTICE BILATERAL HYPOKALEMIA, 276.8 Resolved Indigo Hypopotassemia MILD 10/29 07/02 [employer] ASSOCIATE JUSTICE Diabetes, 250.00 Inactive Joseph Pineda Diabetes Type 2 06/27 06/27 Farooq DO mellitus without mention of complication, type II or unspecified type, not stated as uncontrolled Diabetes 250.02 Resolved Indigo Diabetes mellitus, 06/27 10/18 [facility] ASSOCIATE JUSTICE mellitus without type II, mention of uncontrolled [...] Resolved Indigo Routine gynecological 12/14 07/02 [employer] ASSOCIATE JUSTICE gynecological examination examination Postmenopausa 627.1 Resolved Indigo Postmenopausal l bleeding 12/14 07/02 [facility] ASSOCIATE JUSTICE bleeding Screening for V76.51 Resolved Indigo Screening for malignant 12/26 07/02 [employer] ASSOCIATE JUSTICE malignant neoplasms of neoplasms of colon colon Insomnia, 307.42 Active Indigo 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 ASSOCIATE JUSTICE disorder of initiating or maintaining sleep Establish V68.89 Resolved Indigo Encounters for care or get 01/16 07/02 [employer] ASSOCIATE JUSTICE other specified acquainted administrative visit purpose Weakness, 342.90 Resolved Indigo Hemiplegia, left side of 06/20 10/18 [employer] ASSOCIATE JUSTICE unspecified, body affecting unspecified side TIA 435.9 Active Indigo Unspecified 06/20 07/02 [employer] ASSOCIATE JUSTICE transient cerebral ischemia Knee pain, 719.46 Active Indigo Pain in joint bilateral 06/20 10/18 [employer] ASSOCIATE JUSTICE involving lower leg Bronchitis 490 Resolved Indigo Bronchitis, not 07/23 10/18 [employer] ASSOCIATE JUSTICE specified as acute or chronic Diabetes 357.2 Active Maliheh Polyneuropathy mellitus, 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 y Knee pain, 719.46 Active Indigo Pain in joint right 06/20 10/18 [employer]okum ASSOCIATE JUSTICE involving lower leg Jesi 112.3 Active Indigo Candidiasis of intertrigo 10/09 10/18 [employer] ASSOCIATE JUSTICE skin and nails Hyperlipidemi 272.4 Active Anne Other and a 12/24 12/24 Neil unspecified RMA hyperlipidemia Incontinence, 788.33 Active Indigo Mixed mixed, 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 ASSOCIATE JUSTICE incontinence urge/stress (female) (male) Female stress 625.6 Active Yury Monaco Stress incontinence 01/03 01/03 Cy patel MD female Vaginal odor 623.8 Active Gloria Other specified 05/28 05/28 Naff HOME APPLIANCE INSTALLER noninflammatory disorders of vagina Urinary tract 599.0 Active Indigo Urinary tract infection 05/28 05/28 Yok ASSOCIATE JUSTICE infection, site not specified Urine odor 791.9 Active Indigo Other 05/28 06/26 [employer]okum ASSOCIATE JUSTICE nonspecific findings on examination of urine Unspecified Active Yury Monaco dyspareunia 08/19 08/19 Cy ONEAL Depression Active Indigo 08/26 [employer] ASSOCIATE JUSTICE Anxiety Active Indigo Anxiety state, Disorder 08/26 [employer] ASSOCIATE JUSTICE unspecified ABNORMAL VAGINAL ICD-626.9 Inactive Maite Sanchez BLEEDING PhD SCABIES ICD-133.0 Inactive Maite C Laura PhD FATIGUE ICD-780.79 Inactive Indigo [employer] ASSOCIATE JUSTICE OTH GENERAL ICD-V70.3 Inactive Maite C Laura MEDICAL MD PhD EXAMINATION ADMIN PURPOSES OTHER ABNORMAL ICD-790.29 Inactive Maite C Laura GLUCOSE PhD ACUTE BRONCHITIS ICD-466.0 Inactive Maite Sanchez PhD DEPENDENT EDEMA, ICD-782.3 Inactive Indigo Yokum LEGS, BILATERAL ASSOCIATE JUSTICE HYPOKALEMIA, MILD ICD-276.8 Inactive Indigo [employer] ASSOCIATE JUSTICE Diabetes mellitus, ICD-250.02 Inactive Indigo Yokum type II, ASSOCIATE JUSTICE uncontrolled Sinusitis, ICD-461.1 Inactive Ismael Cyone frontal, acute Amandeep ONEAL Laryngitis, acute ICD-464.00 Inactive Ismael Coyne Amandeep ONEAL Routine ICD-V72.31 Inactive Indigo Yokum gynecological ASSOCIATE JUSTICE examination Postmenopausal ICD-627.1 Inactive Indigo Yokum 2015 bleeding ASSOCIATE JUSTICE Screening for ICD-V76.51 Inactive Indigo Yokum 2015 malignant ASSOCIATE JUSTICE neoplasms of colon Establish care or ICD-V68.89 Inactive Indigo Yokum get acquainted ASSOCIATE JUSTICE visit Weakness, left ICD-342.90 Inactive Indigo Yokum side of body ASSOCIATE JUSTICE Bronchitis ICD-490 Inactive Indigo [employer]um ASSOCIATE JUSTICE Medication List Medication Instructions Start Stop Generic NDC Status Provider Patient Date Date Name Instruction ALPRAZOLAM 3 one p.o. ALPRAZOLAM 42573359616 Active Indigo Active MG [id number] q.h.s. [employer] ASSOCIATE JUSTICE ABILIFY 10 MG Take one ARIPIPRAZOLE 16027184651 Active Indigo Active ORAL TABS tablet Yokum daily for ASSOCIATE JUSTICE depression CELEBREX 200 1 tablet 2 CELECOXIB 35292150610 No Indigo Active MG CAPS by mouth 0 Longer Yokum daily with 1 Active ASSOCIATE JUSTICE meals / 0 4 / 2 4 TROKENDI XR 1 tab by 2 TOPIRAMATE 08855872597 No Indigo Active 100 MG ORAL mouth 0 Longer Yokum [id number] daily 1 Active ASSOCIATE JUSTICE / 0 / 2 4 VESICARE 10 MG 1 pill by SOLIFENACIN 98226742555 Active Yury Monaco Active TABS mouth SUCCINATE [place] daily for MD overactive bladder CIPRO 250 MG 1 tablet 2 CIPROFLOXACIN 24527805090 No Indigo Active TAB by mouth 0 HCL Longer Yokum twice 1 Active ASSOCIATE JUSTICE daily 7 METFORMIN HCL 2 tablets 2 METFORMIN HCL 82729966363 No Indigo Active 500 MG TB24 by mouth 0 Longer [place]okum twice 1 Active ASSOCIATE JUSTICE daily 2 2 AMARYL 1 MG 1 tablet 2 GLIMEPIRIDE 87795728713 No Indigo Active ORAL TABS orally 0 Longer Yokum twice 1 Active ASSOCIATE JUSTICE daily / 0 8 2 2 NYSTATIN apply to NYSTATIN 50575325544 Active Indigo Active 113751 UNIT/GM rash TID Yokum CREA PRN ASSOCIATE JUSTICE METOPROLOL 1 tab po METOPROLOL 18116876280 Active Indigo Active TARTRATE 25 MG bid TARTRATE Yokum TABS ASSOCIATE JUSTICE AZITHROMYCIN 2 po qd x 2 AZITHROMYCIN 11548911761 No Jillina Active 250 MG TABS 1 day, 0 Longer [place] then 1 po 1 Active ASSOCIATE JUSTICE qd x 4 6 days / 0 3 / 2 6 PREDNISONE 20 2 pills 2 PREDNISONE 06610812508 No Jillina Active MG TAB daily x 4 0 Longer [place] days 1 Active ASSOCIATE JUSTICE 6 / 0 / 5 PIOGLITAZONE take one a PIOGLITAZONE 04679472174 Active Maliheh Active HCL 30 MG ORAL day HCL Ziglari TABS 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 JANUVIA 100 MG 1 tablet 2 SITAGLIPTIN 94747047827 No Indigo Active TABS by mouth 0 PHOSPHATE Longer Yokum daily 1 Active ASSOCIATE JUSTICE 6 / 0 6 ATORVASTATIN 1 pill by ATORVASTATIN 59740577722 Active Hannah Active CALCIUM 10 MG mouth CALCIUM Neal TABS nightly, ASSOCIATE JUSTICE for cholestero l ASPIRIN 81 MG 1 po qd ASPIRIN 39682449439 Active Indigo Active ORAL TABS [place] ASSOCIATE JUSTICE NITROFURANTOIN One 2 NITROFURANTOIN 51425805942 No Indigo Active MONOHYD MACRO capsule 0 MONOHYD MACRO Longer Yokum 100 MG CAPS BID for 1 Active ASSOCIATE JUSTICE UTI 6 / 0 3 TRAMADOL HCL 1/2 po tid 2 TRAMADOL HCL 37232826128 No Jillina Active 50 MG TABS with ES 0 Longer [place] Tylenol 1 Active ASSOCIATE JUSTICE prn pain 5 / 0 2 VYVANSE 20 MG 1 tablet 2 LISDEXAMFETAMI 13314732409 No Jillina Active ORAL CAPS daily for 0 NE DIMESYLATE Longer [place] binge 1 Active ASSOCIATE JUSTICE eating 5 disorder / 0 2 LASIX 20 MG 2 tablet FUROSEMIDE 60122819157 Active Ranulfo Villalpando Active TAB by mouth Rory daily PREDNISONE 20 2 tablets 2 PREDNISONE 43234154190 No Joseph Pineda Active MG TAB today, 0 Longer Farooq DO then 1 1 Active tablet 5 days 2-4 / 0 3 DIFLUCAN 100 1 tablet 2 FLUCONAZOLE 90311074920 No Joseph W Active MG TAB by mouth 0 Longer Farooq DO daily x 3 1 Active days 5 / 0 4 / 3 DIFLUCAN 100 1 tablet 2 FLUCONAZOLE 76697256583 No Joseph W Active MG TABS by mouth 0 Longer Farooq DO every 1 Active other day 5 for 2 / doses 0 1 / 2 3 ZOFRAN 4 MG 1 po q6hr ONDANSETRON 12578954852 Active Joseph W Active TABS PRN Nausea HCL Farooq DO PREDNISONE 20 2 tabs 2 PREDNISONE 36563890185 No Joseph W Active MG TAB daily for 0 Longer Farooq DO 3 days, 1 1 Active tab daily 4 for 3 / days, 1/2 1 tab daily 0 for 2 days / 2 5 AMOXICILLIN 2 po BID x 2 AMOXICILLIN 47829067757 No Maite C Active 500 MG CAPS 10 days 0 Longer Madril 1 Active PhD 0 / 2 0 LISINOPRIL 20 1 tablet 2 LISINOPRIL 08486281565 No Maite C Active MG TABS by mouth 0 Longer Madril daily 1 Active PhD 0 / 1 0 POTASSIUM 2 capsule 2 POTASSIUM 35692521463 No Joseph W Active CHLORIDE CR 10 by mouth 0 CHLORIDE Longer Farooq DO MEQ CPCR daily 1 Active 4 / 0 8 / 2 9 SPIRONOLACTONE 1 tablet 2 SPIRONOLACTONE 09142965746 No Joseph W Active 25 MG TAB by mouth 0 Longer Farooq DO daily 1 Active 4 / 0 8 / 2 9 METFORMIN HCL 1 tablet 2 METFORMIN HCL 37407831862 No Joseph W Active 500 MG TABS by mouth 0 Longer Farooq DO twice 1 Active daily 4 / 0 8 / 2 9 AMARYL 1 MG 1 tab 2 GLIMEPIRIDE 48497894418 No Joseph W Active TABS twice 0 Longer Farooq DO daily 1 Active 4 / 0 8 / 2 9 PHENTERMINE 1 po q am 2 PHENTERMINE 56916857940 No Joseph W Active HCL 37.5 MG for wt. 0 HCL Longer Farooq DO TABS loss 1 Active 3 / 1 2 / 2 3 PROMETHAZINE 1 tab by 2 PROMETHAZINE 24632973893 No Joseph W Active HCL 25 MG TABS mouth 0 HCL Longer Farooq DO every 6 1 Active hours as 3 needed / 0 9 / 0 9 CIPROFLOXACIN Take one 2 CIPROFLOXACIN 03574002429 No Joseph W Active HCL 500 MG (1) tablet 0 HCL Longer Farooq DO TABS by mouth 1 Active twice a 3 day / 0 9 / 0 9 ABILIFY 5 MG one p.o. 2 ARIPIPRAZOLE 77988175015 No Joseph W Active TABS q. day 0 Longer Farooq DO 1 Active 3 / 0 9 / 0 9 HYDROCHLOROTHI 2 tabs 2 HYDROCHLOROTHI 78912919584 No Joseph W Active AZIDE 25 MG every 0 AZIDE Longer Farooq DO TABS morning 1 Active 3 / 0 6 / 2 7 ABILIFY 2 MG 1 po q hs 2 ARIPIPRAZOLE 92072243788 No Joseph W Active TABS for major 0 Longer Farooq DO depression 1 Active 3 / 0 5 / 0 7 ADIPEX-P 37.5 1/2 tab po 2 PHENTERMINE 98510884255 No Casey Active MG CAPS q am for 0 HCL Longer [place] weight 1 Active PA loss 3 / 0 5 / 0 1 CIPRO 500 MG 1 tablet 2 CIPROFLOXACIN 16612246754 No Casey Active TAB by mouth 0 HCL Longer [place] twice 1 Active PA daily 3 / 0 5 / 0 1 NECON 1/35 1 po daily 2 NORETHINDRONE- 95213806338 No Casey Active (28) 1-35 0 ETH ESTRADIOL Longer [place] MG-MCG TABS 1 Active PA 3 / 0 5 / 0 1 TRAMADOL HCL 1 po tid 2 TRAMADOL HCL 18396868930 No Casey Active 50 MG TABS with ES 0 Longer Tylenol 1 Active PA 3 / 0 5 / 0 1 FLUCONAZOLE one p.o. 2 FLUCONAZOLE 18700611669 No Casey Active 100 MG TABS q. day 2 0 Longer Leonarda days 1 Active PA 3 / 0 5 / 0 1 POTASSIUM 1 capsule 2 POTASSIUM 16172365881 No Casey Active CHLORIDE CR 10 by mouth 0 CHLORIDE Longer MEQ CPCR daily 1 Active PA 3 / 0 5 / 0 1 IMIPRAMINE HCL Take 6 IMIPRAMINE HCL 37057596703 Active Indigo Active 50 MG TABS tablets by Yokum mouth at ASSOCIATE JUSTICE bedtime DIFLUCAN 100 1 tablet 2 FLUCONAZOLE 48628484774 No Joseph W Active MG TAB by mouth 0 Longer Farooq DO daily 1 Active 2 / 0 2 / 2 4 VERAPAMIL HCL 2 po bid VERAPAMIL HCL 22313197776 Active Indigo Active CR 120 MG TAB Yokum CR ASSOCIATE JUSTICE PERMETHRIN 5 % apply neck 2 PERMETHRIN 63061838446 No Joseph W Active CREA to toes 0 Longer Farooq DO tonight 1 Active and then 2 rinse off / in 0 morning. 1 repeat at / 7 days 2 0 SEROQUEL XR 50 one p.o. 2 QUETIAPINE 54025152204 No Joseph W Active MG [id number] q. evening 0 FUMARATE Longer Farooq DO 1 Active 2 / 0 1 / 2 0 TRAMADOL HCL 1-2 2 TRAMADOL HCL 04579105802 No Joseph W Active 50 MG TABS tablets 0 Longer Farooq DO every 6-8 1 Active hours as 2 needed for / pain 0 1 / 2 0 ALPRAZOLAM XR Take 1 2 ALPRAZOLAM 24134732673 No Joseph W Active [id number] tablet by 0 [id number] Longer Farooq DO mouth at 1 Active bedtime 1 / 2 9 DIFLUCAN 100 1 tablet 2 FLUCONAZOLE 08389193058 No Joseph W Active MG TAB by mouth 0 Longer Farooq DO daily 1 Active 0 / 0 6 AMBIEN 10 MG 1 tab by ZOLPIDEM 07811329480 Active Indigo Active TAB mouth at TARTRATE Yokum bedtime as ASSOCIATE JUSTICE needed for sleep DIFLUCAN 100 1 tablet DIFLUCAN 179466 FLUCONAZOLE Inactive MG TAB by mouth 100 MG TAB daily ALPRAZOLAM Take 1 ALPRAZOLAM ALPRAZOLAM Inactive XR [id number] tablet by XR [id number] mouth at [id number] bedtime TRAMADOL HCL 1-2 TRAMADOL 047613 TRAMADOL HCL Inactive 50 MG TABS tablets HCL 50 MG every 6-8 TABS hours as needed for pain SEROQUEL XR one p.o. SEROQUEL XR QUETIAPINE Inactive 50 MG q. 50 MG FUMARATE [id number] evening [id number] PERMETHRIN 5 apply PERMETHRIN 642641 PERMETHRIN Inactive % CREA neck to 5 [...] days TRAMADOL HCL 1 po tid TRAMADOL 039289 TRAMADOL HCL Inactive 50 MG TABS with ES HCL 50 MG Tylenol TABS NECON 1/35 1 po NECON 1/35 NORETHINDRONE- Inactive (28) 1-35 daily (28) 1-35 ETH ESTRADIOL MG-MCG TABS MG-MCG TABS CIPRO 500 MG 1 tablet CIPRO 500 963138 CIPROFLOXACIN Inactive TAB by mouth MG TAB HCL twice daily ADIPEX-P 1/2 tab ADIPEX-P 488560 PHENTERMINE Inactive 37.5 MG CAPS po q am 37.5 MG HCL for CAPS weight loss ABILIFY 2 MG 1 po q hs ABILIFY 2 783074 ARIPIPRAZOLE Inactive TABS for major MG TABS depressio n HYDROCHLOROT 2 tabs HYDROCHLORO 745497 HYDROCHLOROTHI Inactive HIAZIDE 25 every THIAZIDE 25 AZIDE MG TABS morning MG TABS ABILIFY 5 MG one p.o. ABILIFY 5 668224 ARIPIPRAZOLE Inactive TABS q. day MG TABS CIPROFLOXACI Take one CIPROFLOXAC 079494 CIPROFLOXACIN Inactive N HCL 500 MG (1) IN HCL 500 HCL TABS tablet by MG TABS mouth twice a day PROMETHAZINE 1 tab by PROMETHAZIN 128678 PROMETHAZINE Inactive HCL 25 MG mouth E HCL 25 MG HCL TABS every 6 TABS hours as needed PHENTERMINE 1 po q am PHENTERMINE 191657 PHENTERMINE Inactive HCL 37.5 MG for wt. HCL 37.5 MG HCL TABS loss TABS AMARYL 1 MG 1 tab AMARYL 1 MG 798566 GLIMEPIRIDE Inactive TABS twice TABS daily METFORMIN 1 tablet METFORMIN 610836 METFORMIN HCL Inactive HCL 500 MG by mouth HCL 500 MG TABS twice TABS daily SPIRONOLACTO 1 tablet SPIRONOLACT 655522 SPIRONOLACTONE Inactive NE 25 MG TAB by mouth ONE 25 MG daily TAB POTASSIUM 2 capsule POTASSIUM POTASSIUM Inactive CHLORIDE CR by mouth CHLORIDE CR CHLORIDE 10 MEQ CPCR daily 10 MEQ CPCR LISINOPRIL 1 tablet LISINOPRIL 994789 LISINOPRIL Inactive 20 MG TABS by mouth 20 MG TABS daily DIFLUCAN 100 1 tablet DIFLUCAN 140456 FLUCONAZOLE Inactive MG TABS by mouth 100 MG TABS every other day for 2 doses DIFLUCAN 100 1 tablet DIFLUCAN 721285 FLUCONAZOLE Inactive MG TAB by mouth 100 MG TAB daily x 3 days PREDNISONE 2 tablets PREDNISONE 232253 PREDNISONE Inactive 20 MG TAB today, 20 MG TAB then 1 tablet days 2-4 VYVANSE 20 1 tablet VYVANSE 20 LISDEXAMFETAMI Inactive MG ORAL CAPS daily for MG ORAL NE DIMESYLATE binge CAPS eating disorder TRAMADOL HCL 1/2 po TRAMADOL 066378 TRAMADOL HCL Inactive 50 MG TABS tid with HCL 50 MG ES TABS Tylenol prn pain JANUVIA 100 1 tablet JANUVIA 100 SITAGLIPTIN Inactive MG TABS by mouth MG TABS PHOSPHATE daily AMARYL 1 MG 1 tablet AMARYL 1 MG 469470 GLIMEPIRIDE Inactive ORAL TABS orally ORAL TABS twice daily METFORMIN 2 tablets METFORMIN METFORMIN HCL Inactive HCL 500 MG by mouth HCL 500 MG TB24 twice TB24 daily TROKENDI XR 1 tab by TROKENDI XR TOPIRAMATE Inactive 100 MG ORAL mouth 100 MG ORAL [id number] daily [id number] CELEBREX 200 1 tablet CELEBREX 100350 CELECOXIB Inactive MG CAPS by mouth 200 MG CAPS daily with meals AMOXICILLIN 2 po BID AMOXICILLIN 689049 AMOXICILLIN Inactive 500 MG CAPS x 10 days 500 MG CAPS PREDNISONE 2 tabs PREDNISONE 293425 PREDNISONE Inactive 20 MG TAB daily for 20 MG TAB 3 days, 1 tab daily for 3 days, 1/2 tab daily for 2 days NITROFURANTO One NITROFURANT 6406431 NITROFURANTOIN Inactive IN MONOHYD capsule OIN MONOHYD MONOHYD MACRO MACRO 100 MG BID for MACRO 100 CAPS UTI MG CAPS PREDNISONE 2 pills PREDNISONE 063837 PREDNISONE Inactive 20 MG TAB daily x 4 20 MG TAB days AZITHROMYCIN 2 po qd x AZITHROMYCI 6216555 AZITHROMYCIN Inactive 250 MG TABS 1 day, N 250 MG then 1 po TABS qd x 4 days CIPRO 250 MG 1 tablet CIPRO 250 336823 CIPROFLOXACIN Inactive TAB by mouth MG TAB [...] HGBA1C - Chemistry sodium, serum 140 mmol/L 401-776 7378/06/03 potassium, serum 3.9 mmol/L 3.5-5.2 chloride, serum 105 mmol/L 98-107 carbon dioxide, venous blood 29.4 mmol/L 21.0-32.0 blood glucose 124 mg/dL 65-110 calcium, serum 8.9 mg/dL 8.5-10.1 urea nitrogen, blood 14 mg/dL 7-18 creatinine, serum 0.88 mg/dL 0.55-1.30 hemoglobin A1C, blood, as % of total hemoglobin 5.7 % 4.3-6.0 Lab Report: Chlamydia/GC APTIMA/77530 - Lab chlamydia DNA probe NOT DETECTED NOT DETECTED Lab Report: Chlamydia/GC APTIMA/73761 - Microbiology Neisseria gonorrhoeae DNA probe NOT DETECTED NOT DETECTED Lab Report: Lipid Panel - Chemistry cholesterol, serum 157 mg/dL 694-355 8244/08/22 triglyceride, serum, fasting 215 mg/dL 30-200 HDL [...] mg/dL Encounters Code Encounter Date Provider Facility CPT-80073 Level 3 Est. Patient Yury Benoit MD [facility] 17:20:07 CDT CPT-88854 Level 4 Est. Patient Indigo Carlie [facility] - 17:02:40 CARBONATING STONE CLEANER [place] CPT-26151 Level 4 New Patient Yury Benoit MD [facility] 15:17:12 CDT CPT-37506 Level 3 Est. Patient Indigo [facility] - 13:37:46 CDT [place] CPT-68761 Level 4 Est. Patient [facility] - 10:01:06 CDT [place] CPT-74621 Level 3 Est. 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 Patient Sharmiladorothy Marino [facility] 14:40:56 CDT ASSOCIATE JUSTICE CPT-25986 Level 4 Est. 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 Patient Indigo [facility] 09:51:54 CARBONATING STONE CLEANER CPT-63191 Level 3 Est. Patient [facility] 18:59:38 CDT CPT-76363 Level 3 Est. Patient Joseph Edwin [facility] 14:42:12 CDT -[facility] CPT-57767 Level 3 Est. Patient Joseph Pineda [facility] 22:18:20 CDT -[facility] CPT-56025 Level 3 Est. Patient Joseph Pineda [facility] 16:46:04 CDT -[facility] CPT-43129 Level 3 Est. Patient Joseph Pineda [facility] 15:39:53 CDT -[facility] CPT-80136 Level 3 Est. Patient Maite Sanchez MD PhD [facility] 13:33:34 CDT -[facility] CPT-81522 Level 3 Est. Patient Joseph Pineda [facility] 11:37:08 CDT -[facility] CPT-79818 Level 3 Est. Patient Joseph Pineda [facility] 17:13:29 CARBONATING STONE CLEANER -[facility] CPT-17014 Level 3 Est. Patient Joseph Pineda [facility] 18:42:44 CDT CPT-66895 Level 3 Est. Patient Joseph Pineda [facility] 16:25:39 CDT CPT-75662 Level 3 Est. Patient Casey Brower [facility] 09:52:45 CDT -[facility] CPT-66692 Level 3 Est. Patient Joseph Pineda [facility] 11:03:29 CARBONATING STONE CLEANER -[facility] CPT-48887 Level 3 Est. Patient Joseph Edwin [facility] 11:03:08 CARBONATING STONE CLEANER -[facility] CPT-69981 Level 3 Est. Patient Joseph Pineda [facility] 14:33:31 CDT -R[facility] CPT-16697 Level 3 Est. Patient Joseph Edwin [facility] 17:05:02 CARBONATING STONE CLEANER -RHC CPT-46281 Level 3 Est. Patient Joseph Pineda [facility] 17:48:06 CARBONATING STONE CLEANER -R[facility] CPT-36117 Level 3 Est. Patient Joseph Edwin [facility] 14:59:22 CARBONATING STONE CLEANER -RHC CPT-49793 Level 3 Est. Patient Joseph Edwin [facility] - 21:45:56 CARBONATING STONE CLEANER [place] [facility] CPT-92048 Level 3 Est. Patient Joseph Edwin [facility] 21:29:50 CDT -RHC CPT-25942 Level 3 Est. Patient Joseph Pineda [facility] 12:41:09 CDT -[facility] Procedures Code Procedure Name Date Entry Date Standard Description CPT-39531 [place] - LAB USE ONLY 12:39:03 CARBONATING STONE CLEANER CPT-76561 Vaginal Culture - LAB USE ONLY 12:39:03 CARBONATING STONE CLEANER CPT-15732 Urine Culture - LAB USE ONLY 11:52:44 CARBONATING STONE CLEANER CPT-58361 UA w micro - LAB USE ONLY 11:52:44 CARBONATING STONE CLEANER CPT-73333 Postop F/U Visit 12:08:35 CDT CPT-98872 Postop F/U Visit 18:20:10 CDT CPT-A4351 [place] Female Cath 09:37:10 CDT CPT-41559 Urine Dip (Floor Use Only) 15:17:13 CDT CPT-17133 Dil F ureth int 15:17:13 CDT CPT-80015 Venipuncture Draw Fee 09:19:08 CDT CPT-43646 Lipid - LAB USE ONLY 09:19:07 CDT CPT-JTINJ Asp/Joint Injection 09:26:49 CDT CPT-98552 Chest 2V Frontal and Lat 14:47:43 CDT CPT-JTINJ Asp/Joint Injection 09:51:53 CARBONATING STONE CLEANER CPT-OV Office Visit 17:39:05 CDT CPT-OV Office Visit 15:19:50 CDT CPT-97249 Sono transvag pelvis non OB uterus ovaries cervix 18:04:34 CDT CPT-15403 Venipuncture Draw Fee 08:55:49 CARBONATING STONE CLEANER
--- OUTSIDE RECORDS SUMMARY | 2016-11-20 13:22 | External Medical Summary | Clinical Summary ---
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 NKDA Critical Active Indigo Yokum COMMUNITY RESOURCE OFFICER NKDA Critical No Longer Indigo [employer] COMMUNITY RESOURCE OFFICER Active NKDA Critical Inactive Adrianna Elder Conditions [...] Resolved Indigo Other malaise 05/24 07/02 [facility] COMMUNITY RESOURCE OFFICER and fatigue SLEEP APNEA, 327.23 Active Joseph Pineda Obstructive OBSTRUCTIVE, 06/27 06/27 Farooq DO sleep apnea MILD (adult) (pediatric) OVERWEIGHT 278.02 Inactive Joseph Pineda Overweight 06/28 06/28 Farooq DO Obesity 278.00 Active Indigo Obesity, 06/28 10/18 [facility] COMMUNITY RESOURCE OFFICER unspecified OTH GENERAL V70.3 Resolved Maite Gutierrez Other general MEDICAL Laura ONEAL medical EXAMINATION PhD examination for ADMIN administrative PURPOSES purposes OTHER 790.29 Resolved Maite C Other abnormal ABNORMAL 05/20 Laura ONEAL glucose GLUCOSE PhD ACUTE 466.0 Resolved Maite Gutierrez Acute bronchitis BRONCHITIS 09/02 Laura ONEAL PhD DEPENDENT 782.3 Resolved Indigo Edema EDEMA, LEGS, 10/29 10/18 [facility] COMMUNITY RESOURCE OFFICER BILATERAL HYPOKALEMIA, 276.8 Resolved Indigo Hypopotassemia MILD 10/29 07/02 [facility] COMMUNITY RESOURCE OFFICER Diabetes, 250.00 Inactive Joseph Pineda Diabetes Type 2 06/27 06/27 Farooq DO mellitus without mention of complication, type II or unspecified type, not stated as uncontrolled Diabetes 250.02 Resolved Indigo Diabetes mellitus, 06/27 10/18 [facility] COMMUNITY RESOURCE OFFICER mellitus without type II, mention of uncontrolled [...] Resolved Indigo Routine gynecological 12/14 07/02 [facility] COMMUNITY RESOURCE OFFICER gynecological examination examination Postmenopausa 627.1 Resolved Indigo Postmenopausal l bleeding 12/14 07/02 [facility] COMMUNITY RESOURCE OFFICER bleeding Screening for V76.51 Resolved Indigo Screening for malignant 12/26 07/02 [facility] COMMUNITY RESOURCE OFFICER malignant neoplasms of neoplasms of colon colon Insomnia, 307.42 Active Indigo 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 COMMUNITY RESOURCE OFFICER disorder of initiating or maintaining sleep Establish V68.89 Resolved Indigo Encounters for care or get 01/16 07/02 [facility] COMMUNITY RESOURCE OFFICER other specified acquainted administrative visit purpose Weakness, 342.90 Resolved Indigo Hemiplegia, left side of 06/20 10/18 [facility] COMMUNITY RESOURCE OFFICER unspecified, body affecting unspecified side TIA 435.9 Active Indigo Unspecified 06/20 07/02 [facility] COMMUNITY RESOURCE OFFICER transient cerebral ischemia Knee pain, 719.46 Active Indigo Pain in joint bilateral 06/20 10/18 [facility] COMMUNITY RESOURCE OFFICER involving lower leg Bronchitis 490 Resolved Indigo Bronchitis, not 07/23 10/18 [facility] COMMUNITY RESOURCE OFFICER specified as acute or chronic Diabetes 357.2 Active Maliheh Polyneuropathy mellitus, 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 Knee pain, 719.46 Active Indigo Pain in joint right 06/20 10/18 [facility] COMMUNITY RESOURCE OFFICER involving lower leg Jesi 112.3 Active Indigo Candidiasis of intertrigo 10/09 10/18 [facility] COMMUNITY RESOURCE OFFICER skin and nails Hyperlipidemi 272.4 Active Anne Other and a 12/24 12/24 Neli unspecified RMA hyperlipidemia Incontinence, 788.33 Active Indigo Mixed mixed, 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 COMMUNITY RESOURCE OFFICER incontinence urge/stress (female) (male) Female stress 625.6 Active Yury Monaco Stress incontinence 01/03 01/03 Cy patel MD female Vaginal odor 623.8 Active Gloria Other specified 05/28 05/28 Naff PRINTING FILM STRIPPER noninflammatory disorders of vagina Urinary tract 599.0 Active Indigo Urinary tract infection 05/28 05/28 Yok COMMUNITY RESOURCE OFFICER infection, site not specified Urine odor 791.9 Active Indigo Other 05/28 06/26 [facility] COMMUNITY RESOURCE OFFICER nonspecific findings on examination of urine Unspecified Active Yury Monaco dyspareunia 08/19 08/19 Cy ONEAL Depression Active Indigo 08/26 [facility] COMMUNITY RESOURCE OFFICER Anxiety Active Indigo Anxiety state, Disorder 08/26 Yok COMMUNITY RESOURCE OFFICER unspecified SCABIES ICD-133.0 Inactive Maite Sanchez PhD FATIGUE ICD-780.79 Inactive Indigo [facility] COMMUNITY RESOURCE OFFICER OTH GENERAL ICD-V70.3 Inactive Maite Sanchez MEDICAL PhD EXAMINATION ADMIN PURPOSES OTHER ABNORMAL ICD-790.29 Inactive Maite Matt Sanchez GLUCOSE MD PhD ACUTE BRONCHITIS ICD-466.0 Inactive Maite Sanchez PhD DEPENDENT EDEMA, ICD-782.3 Inactive Indigo [facility] LEGS, BILATERAL COMMUNITY RESOURCE OFFICER HYPOKALEMIA, MILD ICD-276.8 Inactive Indigo [facility] COMMUNITY RESOURCE OFFICER Diabetes mellitus, ICD-250.02 Inactive Indigo [facility] type II, COMMUNITY RESOURCE OFFICER uncontrolled ABNORMAL VAGINAL ICD-626.9 Inactive Maite Matt Sanchez BLEEDING PhD Routine ICD-V72.31 Inactive Indigo [facility] gynecological COMMUNITY RESOURCE OFFICER examination Postmenopausal ICD-627.1 Inactive Indigo [facility] 2015 bleeding COMMUNITY RESOURCE OFFICER Screening for ICD-V76.51 Inactive Indigo [facility] 2015 malignant COMMUNITY RESOURCE OFFICER neoplasms of colon Establish care or ICD-V68.89 Inactive Indigo Yok[facility] get acquainted COMMUNITY RESOURCE OFFICER visit Weakness, left ICD-342.90 Inactive Indigo [facility] side of body COMMUNITY RESOURCE OFFICER Bronchitis ICD-490 Inactive Indigo [facility] COMMUNITY RESOURCE OFFICER Sinusitis, ICD-461.1 Inactive Ismael Coyne frontal, acute Amandeep ONEAL Laryngitis, acute ICD-464.00 Inactive Ismael Coyne Amandeep ONEAL Medication List Medication Instructions Start Stop Generic NDC Status Provider Patient Date Date Name Instruction ELKE 5 Take one ARIPIPRAZOLE 85283684815 Active Indigo Active MG ORAL tablet daily [facility] TABS for COMMUNITY RESOURCE OFFICER depression CELEBREX 1 tablet by 2 CELECOXIB 53400466053 No Indigo Active 200 MG CAPS mouth daily 0 Longer Yokum with meals 1 Active COMMUNITY RESOURCE OFFICER 7 / 0 4 / 2 4 TROKENDI XR 1 tab by 2 TOPIRAMATE 15395828078 No Indigo Active 100 MG ORAL mouth daily 0 Longer [facility] [id number] 1 Active COMMUNITY RESOURCE OFFICER 7 / 0 4 / 2 4 VESICARE 10 1 pill by SOLIFENACIN 36806196422 Active J Carlos Enrique Active MG TABS mouth daily SUCCINATE Cy for overactive bladder CIPRO 250 1 tablet by 2 CIPROFLOXACIN 06292945126 No Indgio Active MG TAB mouth twice 0 HCL Longer Yokum daily 1 Active COMMUNITY RESOURCE OFFICER 7 / 0 1 / 2 7 METFORMIN 2 tablets by 2 METFORMIN HCL 95437741473 No Indigo Active HCL 500 MG mouth twice 0 Longer Yokum TB24 daily 1 Active COMMUNITY RESOURCE OFFICER 6 / 0 8 / 2 2 AMARYL 1 MG 1 tablet 2 GLIMEPIRIDE 01180074387 No Indigo Active ORAL TABS orally twice 0 Longer Yokum daily 1 Active COMMUNITY RESOURCE OFFICER 6 / 0 8 / 2 2 NYSTATIN apply to NYSTATIN 50884342112 Active Indigo Active 515018 rash TID PRN [facility] UNIT/GM COMMUNITY RESOURCE OFFICER CREA METOPROLOL 1 tab po bid METOPROLOL 85241398312 Active Indigo Active TARTRATE 25 TARTRATE [facility] MG TABS COMMUNITY RESOURCE OFFICER AZITHROMYCI 2 po qd x 1 2 AZITHROMYCIN 32042704668 No Jillina Active N 250 MG day, then 1 0 Longer Frazell TABS po qd x 4 1 Active COMMUNITY RESOURCE OFFICER days 6 / 0 3 / 2 6 PREDNISONE 2 pills 2 PREDNISONE 66679035194 No Jillina Active 20 MG TAB daily x 4 0 Longer Frazell days 1 Active COMMUNITY RESOURCE OFFICER 6 / 0 3 / 2 5 PIOGLITAZON take one a PIOGLITAZONE 61569699240 Active Maliheh Active E HCL 30 MG day HCL Ziglari ORAL TABS CHAIRMAN JANUVIA 100 1 tablet by 2 SITAGLIPTIN 91334618730 No Indigo Active MG TABS mouth daily 0 PHOSPHATE Longer Yokum 1 Active COMMUNITY RESOURCE OFFICER 6 / 0 2 / 6 ATORVASTATI 1 pill by ATORVASTATIN 29347702658 Active Indigo Active N CALCIUM mouth CALCIUM [facility] 10 MG TABS nightly, for COMMUNITY RESOURCE OFFICER cholesterol ASPIRIN 81 1 po qd ASPIRIN 56220620572 Active Indigo Active MG ORAL [facility] TABS COMMUNITY RESOURCE OFFICER NITROFURANT One capsule 2 NITROFURANTOIN 71054031842 No Indigo Active OIN MONOHYD BID for UTI 0 MONOHYD MACRO Longer Yokum MACRO 100 1 Active COMMUNITY RESOURCE OFFICER MG CAPS 6 / 0 2 / 3 TRAMADOL 1/2 po tid 2 TRAMADOL HCL 98320381348 No Jillina Active HCL 50 MG with ES 0 Longer Frazell TABS Tylenol prn 1 Active COMMUNITY RESOURCE OFFICER pain 5 / 0 8 / 1 2 VYVANSE 20 1 tablet 2 LISDEXAMFETAMIN 59692482991 No Jillina Active MG ORAL daily for 0 E DIMESYLATE Longer Frazell CAPS binge eating 1 Active COMMUNITY RESOURCE OFFICER disorder 5 / 0 8 / 1 2 LASIX 20 MG 2 tablet by FUROSEMIDE 77912507858 Active Indigo Active TAB mouth daily [facility] COMMUNITY RESOURCE OFFICER PREDNISONE 2 tablets 2 PREDNISONE 23632803982 No Joseph W Active 20 MG TAB today, then 0 Longer Farooq DO 1 tablet 1 Active days 2-4 5 / 0 4 / 1 3 DIFLUCAN 1 tablet by 2 FLUCONAZOLE 25943448817 No Joseph W Active 100 MG TAB mouth daily 0 Longer Farooq DO x 3 days 1 Active 5 / 0 4 / 3 DIFLUCAN 1 tablet by 2 FLUCONAZOLE 21929693876 No Joseph Pineda Active 100 MG TABS mouth every 0 Longer Farooq DO other day 1 Active for 2 doses 5 / 0 1 / 2 3 ZOFRAN 4 MG 1 po q6hr ONDANSETRON HCL 21640812440 Active Joseph Pineda Active TABS PRN Nausea Farooq DO PREDNISONE 2 tabs daily 2 PREDNISONE 74583408282 No Joseph Pineda Active 20 MG TAB for 3 days, 0 Longer Farooq DO 1 tab daily 1 Active for 3 days, 4 1/2 tab / daily for 2 1 days 0 / 2 5 AMOXICILLIN 2 po BID x 2 AMOXICILLIN 15831043158 No Maite C Active 500 MG CAPS 10 days 0 Longer Madril 1 Active PhD 0 / 2 0 LISINOPRIL 1 tablet by 2 LISINOPRIL 35550947223 No Maite C Active 20 MG TABS mouth daily 0 Longer Madril 1 Active PhD 0 0 POTASSIUM 2 capsule by 2 POTASSIUM 51760103385 No Joseph Pineda Active CHLORIDE CR mouth daily 0 CHLORIDE Longer Farooq DO 10 MEQ CPCR 1 Active 4 / 0 2 9 SPIRONOLACT 1 tablet by 2 SPIRONOLACTONE 65637728764 No Joseph Pineda Active ONE 25 MG mouth daily 0 Longer Farooq DO TAB 1 Active 4 / 0 / 2 9 METFORMIN 1 tablet by 2 METFORMIN HCL 41567957676 No Joseph Pineda Active HCL 500 MG mouth twice 0 Longer Farooq DO TABS daily 1 Active 4 / 0 8 / 2 9 AMARYL 1 MG 1 tab twice 2 GLIMEPIRIDE 38257954831 No Joseph Pineda Active TABS daily 0 Longer Farooq DO 1 Active 4 / 0 8 / 2 9 PHENTERMINE 1 po q am 2 PHENTERMINE HCL 57979459504 No Joseph Pineda Active HCL 37.5 MG for wt. loss 0 Longer Farooq DO TABS 1 Active 3 / 1 2 / 2 3 PROMETHAZIN 1 tab by 2 PROMETHAZINE 16513507668 No Joseph Pineda Active E HCL 25 MG mouth every 0 HCL Longer Farooq DO TABS 6 hours as 1 Active needed 3 / 0 9 / 0 9 CIPROFLOXAC Take one (1) 2 CIPROFLOXACIN 66749286901 No Joseph W Active IN HCL 500 tablet by 0 HCL Longer Farooq DO MG TABS mouth twice 1 Active a day 3 / 0 9 / 0 9 ABILIFY 5 one p.o. q. 2 ARIPIPRAZOLE 99678886641 No Joseph W Active MG TABS day 0 Longer Farooq DO 1 Active 3 / 0 9 / 0 9 HYDROCHLORO 2 tabs every 2 HYDROCHLOROTHIA 22685750895 No Joseph W Active THIAZIDE 25 morning 0 ZIDE Longer Farooq DO MG TABS 1 Active 3 / 0 6 / 2 7 ABILIFY 2 1 po q hs 2 ARIPIPRAZOLE 10431573153 No Joseph W Active MG TABS for major 0 Longer Farooq DO depression 1 Active 3 / 0 5 / 0 7 ADIPEX-P 1/2 tab po q 2 PHENTERMINE HCL 47634395568 No Casey Active 37.5 MG am for 0 Longer Marissa CAPS weight loss 1 Active PA 3 / 0 5 / 0 1 CIPRO 500 1 tablet by 2 CIPROFLOXACIN 56832936559 No Casey Active MG TAB mouth twice 0 HCL Longer Marissa daily 1 Active PA 3 / 0 5 / 0 1 NECON 35 1 po daily 2 NORETHINDRONE-E 46938845513 No Casey Active (28) 1-35 0 TH ESTRADIOL Longer Leonarda MG-MCG TABS 1 Active PA 3 / 0 5 / 0 1 TRAMADOL 1 po tid 2 TRAMADOL HCL 36270385731 No Casey Active HCL 50 MG with ES 0 Longer Marissa TABS Tylenol 1 Active PA 3 / 0 5 / 0 1 FLUCONAZOLE one p.o. q. 2 FLUCONAZOLE 35614688024 No Casey Active 100 MG TABS day 2 days 0 Longer Marissa 1 Active PA 3 / 0 5 / 0 1 POTASSIUM 1 capsule by 2 POTASSIUM 60247434052 No Casey Active CHLORIDE CR mouth daily 0 CHLORIDE Longer Marissa 10 MEQ CPCR 1 Active PA 3 / 0 5 / 0 1 IMIPRAMINE Take 6 IMIPRAMINE HCL 93465350220 Active Indigo Active HCL 50 MG tablets by [facility] TABS mouth at COMMUNITY RESOURCE OFFICER bedtime DIFLUCAN 1 tablet by 2 FLUCONAZOLE 66871940893 No Joseph W Active 100 MG TAB mouth daily 0 Longer Farooq DO 1 Active 2 / 0 2 / 2 4 VERAPAMIL 2 po bid VERAPAMIL HCL 75362453332 Active Indigo Active HCL CR 120 [facility] MG TAB CR COMMUNITY RESOURCE OFFICER PERMETHRIN apply neck 2 PERMETHRIN 74071839742 No Joseph W Active 5 % CREA to toes 0 Longer Farooq DO tonight and 1 Active then rinse 2 off in / morning. 0 repeat at 7 1 days / 2 0 SEROQUEL XR one p.o. q. 2 QUETIAPINE 53160076861 No Joseph W Active 50 MG evening 0 FUMARATE Longer Farooq DO [id number] 1 Active 2 / 0 1 / 2 0 TRAMADOL 1-2 tablets 2 TRAMADOL HCL 31289513999 No Joseph W Active HCL 50 MG every 6-8 0 Longer Farooq DO TABS hours as 1 Active needed for 2 pain / 0 1 / 2 0 ALPRAZOLAM one p.o. ALPRAZOLAM 37000548454 Active Indigo Active 3 MG q.h.s. Yokum [id number] COMMUNITY RESOURCE OFFICER ALPRAZOLAM Take 1 2 ALPRAZOLAM 23625465500 No Joseph W Active XR tablet by 0 [id number] Longer Farooq DO [id number] mouth at 1 Active bedtime 1 / 2 9 DIFLUCAN 1 tablet by 2 FLUCONAZOLE 98347565382 No Joseph W Active 100 MG TAB mouth daily 0 Longer Farooq DO 1 Active 0 / 0 6 AMBIEN 10 1 tab by ZOLPIDEM 15206699492 Active Indigo Active MG TAB mouth at TARTRATE [facility] bedtime as COMMUNITY RESOURCE OFFICER needed for sleep DIFLUCAN 100 1 tablet DIFLUCAN 777026 FLUCONAZOLE Inactive MG TAB by mouth 100 MG TAB daily ALPRAZOLAM Take 1 ALPRAZOLAM ALPRAZOLAM Inactive XR [id number] tablet by XR [id number] mouth at FY77T-ADQ bedtime TRAMADOL HCL 1-2 TRAMADOL 291807 TRAMADOL HCL Inactive 50 MG TABS tablets HCL 50 MG every 6-8 TABS hours as needed for pain SEROQUEL XR one p.o. SEROQUEL XR QUETIAPINE Inactive 50 MG q. 50 MG FUMARATE [id number]-DUF evening [id number] PERMETHRIN 5 apply PERMETHRIN 742389 PERMETHRIN Inactive % CREA neck to 5 % CREA toes tonight and then rinse off in morning. repeat at 7 days DIFLUCAN 100 1 tablet DIFLUCAN 667183 FLUCONAZOLE Inactive MG TAB by mouth 100 MG TAB daily POTASSIUM 1 capsule POTASSIUM POTASSIUM Inactive CHLORIDE CR by mouth CHLORIDE CR CHLORIDE 10 MEQ CPCR daily 10 MEQ CPCR FLUCONAZOLE one p.o. FLUCONAZOLE 19760111 FLUCONAZOLE Inactive 100 MG TABS q. day 2 100 MG TABS days TRAMADOL HCL 1 po tid TRAMADOL 956067 TRAMADOL HCL Inactive 50 MG TABS with ES HCL 50 MG Tylenol TABS NECON 1/35 1 po NECON 1/35 NORETHINDRONE- Inactive (28) 1-35 daily (28) 1-35 ETH ESTRADIOL MG-MCG TABS MG-MCG TABS CIPRO 500 MG 1 tablet CIPRO 500 566450 CIPROFLOXACIN Inactive TAB by mouth MG TAB HCL twice daily ADIPEX-P 1/2 tab ADIPEX-P 259418 PHENTERMINE Inactive 37.5 MG CAPS po q am 37.5 MG HCL for CAPS weight loss ABILIFY 2 MG 1 po q hs ABILIFY 2 326406 ARIPIPRAZOLE Inactive TABS for major MG TABS depressio n HYDROCHLOROT 2 tabs HYDROCHLORO 529346 HYDROCHLOROTHI Inactive HIAZIDE 25 every THIAZIDE 25 AZIDE MG TABS morning MG TABS ABILIFY 5 MG one p.o. ABILIFY 5 823871 ARIPIPRAZOLE Inactive TABS q. day MG TABS CIPROFLOXACI Take one CIPROFLOXAC 474440 CIPROFLOXACIN Inactive N HCL 500 MG (1) IN HCL 500 HCL TABS tablet by MG TABS mouth twice a day PROMETHAZINE 1 tab by PROMETHAZIN 750335 PROMETHAZINE Inactive HCL 25 MG mouth E HCL 25 MG HCL TABS every 6 TABS hours as needed PHENTERMINE 1 po q am PHENTERMINE 279263 PHENTERMINE Inactive HCL 37.5 MG for wt. HCL 37.5 MG HCL TABS loss TABS AMARYL 1 MG 1 tab AMARYL 1 MG 035108 GLIMEPIRIDE Inactive TABS twice TABS daily METFORMIN 1 tablet METFORMIN 330169 METFORMIN HCL Inactive HCL 500 MG by mouth HCL 500 MG TABS twice TABS daily SPIRONOLACTO 1 tablet SPIRONOLACT 944827 SPIRONOLACTONE Inactive NE 25 MG TAB by mouth ONE 25 MG daily TAB POTASSIUM 2 capsule POTASSIUM POTASSIUM Inactive CHLORIDE CR by mouth CHLORIDE CR CHLORIDE 10 MEQ CPCR daily 10 MEQ CPCR LISINOPRIL 1 tablet LISINOPRIL 201204 LISINOPRIL Inactive 20 MG TABS by mouth 20 MG TABS daily DIFLUCAN 100 1 tablet DIFLUCAN 903101 FLUCONAZOLE Inactive MG TABS by mouth 100 MG TABS every other day for 2 doses DIFLUCAN 100 1 tablet DIFLUCAN 085535 FLUCONAZOLE Inactive MG TAB by mouth 100 MG TAB daily x 3 days PREDNISONE 2 tablets PREDNISONE 408275 PREDNISONE Inactive 20 MG TAB today, 20 MG TAB then 1 tablet days 2-4 VYVANSE 20 1 tablet VYVANSE 20 LISDEXAMFETAMI Inactive MG ORAL CAPS daily for MG ORAL NE DIMESYLATE binge CAPS eating disorder TRAMADOL HCL 1/2 po TRAMADOL 775985 TRAMADOL HCL Inactive 50 MG TABS tid with HCL 50 MG ES TABS Tylenol prn pain JANUVIA 100 1 tablet JANUVIA 100 SITAGLIPTIN Inactive MG TABS by mouth MG TABS PHOSPHATE daily AMARYL 1 MG 1 tablet AMARYL 1 MG 952281 GLIMEPIRIDE Inactive ORAL TABS orally ORAL TABS twice daily METFORMIN 2 tablets METFORMIN METFORMIN HCL Inactive HCL 500 MG by mouth HCL 500 MG TB24 twice TB24 daily TROKENDI XR 1 tab by TROKENDI XR TOPIRAMATE Inactive 100 MG ORAL mouth 100 MG ORAL UL19S-VCE daily [id number] CELEBREX 200 1 tablet CELEBREX 717777 CELECOXIB Inactive MG CAPS by mouth 200 MG CAPS daily with meals AMOXICILLIN 2 po BID AMOXICILLIN 430959 AMOXICILLIN Inactive 500 MG CAPS x 10 days 500 MG CAPS PREDNISONE 2 tabs PREDNISONE 010588 PREDNISONE Inactive 20 MG TAB daily for 20 MG TAB 3 days, 1 tab daily for 3 days, 1/2 tab daily for 2 days NITROFURANTO One NITROFURANT 4466239 NITROFURANTOIN Inactive IN MONOHYD capsule OIN MONOHYD MONOHYD MACRO MACRO 100 MG BID for MACRO 100 CAPS UTI MG CAPS PREDNISONE 2 pills PREDNISONE 903505 PREDNISONE Inactive 20 MG TAB daily x 4 20 MG TAB days AZITHROMYCIN 2 po qd x AZITHROMYCI 2222991 AZITHROMYCIN Inactive 250 MG TABS 1 day, N 250 MG then 1 po TABS qd x 4 days CIPRO 250 MG 1 tablet CIPRO 250 051079 CIPROFLOXACIN Inactive TAB by mouth MG TAB [...] HGBA1C - Chemistry sodium, serum 140 mmol/L 734-153 9710/06/03 potassium, serum 3.9 mmol/L 3.5-5.2 chloride, serum 105 mmol/L 98-107 carbon dioxide, venous blood 29.4 mmol/L 21.0-32.0 blood glucose 124 mg/dL 65-110 calcium, serum 8.9 mg/dL 8.5-10.1 urea nitrogen, blood 14 mg/dL 7-18 creatinine, serum 0.88 mg/dL 0.55-1.30 hemoglobin A1C, blood, as % of total hemoglobin 5.7 % 4.3-6.0 Lab Report: Chlamydia/GC APTIMA/[id number] - Lab chlamydia DNA probe NOT DETECTED NOT DETECTED Lab Report: Chlamydia/GC APTIMA/[id number] - Microbiology Neisseria gonorrhoeae DNA probe NOT DETECTED NOT DETECTED Lab Report: Lipid Panel - Chemistry cholesterol, serum 157 mg/dL 284-427 1239/08/22 triglyceride, serum, fasting 215 mg/dL 30-200 HDL [...] mg/dL Encounters Code Encounter Date Provider Facility CPT-49342 Level 3 Est. Patient Yury Benoit MD [facility] 17:20:07 CDT CPT-81877 Level 4 Est. Patient [facility] - 17:02:40 ASSISTANT SUPERINTENDENT FOR CURRICULUM [place] CPT-02075 Level 4 New Patient Yury Benoit MD [facility] 15:17:12 CDT CPT-50410 Level 3 Est. Patient [facility] - 13:37:46 CDT [place] CPT-47653 Level 4 Est. Patient [facility] - 10:01:06 CDT [place] CPT-32281 Level 3 Est. Patient [facility] 08:58:07 CDT CHAIRMAN CPT-25776 Level 3 Est. [facility] COMMUNITY RESOURCE OFFICER CPT-17926 Level 4 Est. Patient [facility] 17:29:53 ASSISTANT SUPERINTENDENT FOR CURRICULUM CHAIRMAN CPT-46832 Level 4 Est. Patient [facility] 09:51:54 ASSISTANT SUPERINTENDENT FOR CURRICULUM CPT-31102 Level 3 Est. [facility] 18:59:38 CDT CPT-21788 Level 3 Est. Patient [facility] 14:42:12 CDT -[facility] CPT-12414 Level 3 Est. Patient [facility] 22:18:20 CDT -RHC CPT-04226 Level 3 Est. Patient [facility] 16:46:04 CDT -RHC CPT-23087 Level 3 Est. Patient [facility] 15:39:53 CDT -RHC CPT-69314 Level 3 Est. Patient Maite Sanchez MD [facility] 13:33:34 CDT -RHC CPT-09399 Level 3 Est. Patient Joseph Pineda [facility] 11:37:08 CDT -RHC CPT-76389 Level 3 Est. Patient Joseph Pineda [facility] 17:13:29 ASSISTANT SUPERINTENDENT FOR CURRICULUM -RHC CPT-14879 Level 3 Est. Patient Joseph Pineda [facility] 18:42:44 CDT CPT-25581 Level 3 Est. Patient Joseph Edwin [facility] 16:25:39 CDT CPT-42136 Level 3 Est. Patient Casey [address]CHIBALD [facility] 09:52:45 CDT -RHC CPT-45334 Level 3 Est. Patient Joseph Edwin [facility] 11:03:29 ASSISTANT SUPERINTENDENT FOR CURRICULUM -RHC CPT-95811 Level 3 Est. Patient Joseph Edwin [facility] 11:03:08 ASSISTANT SUPERINTENDENT FOR CURRICULUM -RHC CPT-76395 Level 3 Est. Patient [facility] 14:33:31 CDT -RHC CPT-34943 Level 3 Est. Patient [facility] 17:05:02 ASSISTANT SUPERINTENDENT FOR CURRICULUM -RHC CPT-69589 Level 3 Est. Patient [facility] 17:48:06 ASSISTANT SUPERINTENDENT FOR CURRICULUM -RHC CPT-42389 Level 3 Est. Patient [place] Edwin [facility] 14:59:22 ASSISTANT SUPERINTENDENT FOR CURRICULUM -RHC CPT-30057 Level 3 Est. Patient [facility] - 21:45:56 ASSISTANT SUPERINTENDENT FOR CURRICULUM [place] [facility] CPT-37326 Level 3 Est. Patient [facility] 21:29:50 CDT -RHC CPT-45728 Level 3 Est. Patient [facility] 12:41:09 CDT -RHC Procedures Code Procedure Name Date Entry Date Standard Description CPT-88746 Wet Mount - LAB USE ONLY 12:39:03 ASSISTANT SUPERINTENDENT FOR CURRICULUM CPT-85603 Vaginal Culture - LAB USE ONLY 12:39:03 ASSISTANT SUPERINTENDENT FOR CURRICULUM CPT-05938 Urine Culture - LAB USE ONLY 11:52:44 ASSISTANT SUPERINTENDENT FOR CURRICULUM CPT-83785 UA w micro - LAB USE ONLY 11:52:44 ASSISTANT SUPERINTENDENT FOR CURRICULUM CPT-80771 Postop F/U Visit 12:08:35 CDT CPT-72097 Postop F/U Visit 18:20:10 CDT CPT-A4351 [facility] Female Cath 09:37:10 CDT CPT-52122 Urine Dip (Floor Use Only) 15:17:13 CDT CPT-37810 Dil F ureth int 15:17:13 CDT CPT-00038 Venipuncture Draw Fee 09:19:08 CDT CPT-00777 Lipid - LAB USE ONLY 09:19:07 CDT CPT-JTINJ Asp/Joint Injection 09:26:49 CDT CPT-90390 Chest 2V Frontal and Lat 14:47:43 CDT CPT-JTINJ Asp/Joint Injection 09:51:53 ASSISTANT SUPERINTENDENT FOR CURRICULUM CPT-OV Office Visit 17:39:05 CDT CPT-OV Office Visit 15:19:50 CDT CPT-40839 Sono transvag pelvis non OB uterus ovaries cervix 18:04:34 CDT CPT-56475 Venipuncture Draw Fee 08:55:49 ASSISTANT SUPERINTENDENT FOR CURRICULUM
--- OUTSIDE RECORDS SUMMARY | 2016-11-20 13:23 | External Medical Summary | Clinical Summary ---
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 killed her NKDA Critical Active Indigo Yokum OFFICE WORKFORCE PLANNER NKDA Critical No Longer Indigo Yokum OFFICE WORKFORCE PLANNER Active NKDA Critical Inactive Adrianna Elder Conditions [...] Resolved Indigo Other malaise 05/24 07/02 Yokum OFFICE WORKFORCE PLANNER and fatigue SLEEP APNEA, 327.23 Active Joseph Pineda Obstructive OBSTRUCTIVE, 06/27 06/27 Farooq DO sleep apnea MILD (adult) (pediatric) OVERWEIGHT 278.02 Inactive Joseph Pineda Overweight 06/28 06/28 Farooq DO Obesity 278.00 Active Indigo Obesity, 06/28 10/18 Yokum OFFICE WORKFORCE PLANNER unspecified OTH GENERAL V70.3 Resolved Maite Gutierrez Other general MEDICAL Laura ONEAL medical EXAMINATION PhD examination for ADMIN administrative PURPOSES purposes OTHER 790.29 Resolved Maite C Other abnormal ABNORMAL 05/20 Laura ONEAL glucose GLUCOSE PhD ACUTE 466.0 Resolved Maite Gutierrez Acute bronchitis BRONCHITIS 09/02 Laura ONEAL PhD DEPENDENT 782.3 Resolved Indigo Edema EDEMA, LEGS, 10/29 10/18 Yokum OFFICE WORKFORCE PLANNER BILATERAL HYPOKALEMIA, 276.8 Resolved Indigo Hypopotassemia MILD 10/29 07/02 Yokum OFFICE WORKFORCE PLANNER Diabetes, 250.00 Inactive Joseph Pineda Diabetes Type 2 06/27 06/27 Farooq DO mellitus without mention of complication, type II or unspecified type, not stated as uncontrolled Diabetes 250.02 Resolved Indigo Diabetes mellitus, 06/27 10/18 Yokum OFFICE WORKFORCE PLANNER mellitus without type II, mention of uncontrolled [...] Resolved Indigo Routine gynecological 12/14 07/02 Yokum OFFICE WORKFORCE PLANNER gynecological examination examination Postmenopausa 627.1 Resolved Indigo Postmenopausal l bleeding 12/14 07/02 Yokum OFFICE WORKFORCE PLANNER bleeding Screening for V76.51 Resolved Indigo Screening for malignant 12/26 07/02 Yokum OFFICE WORKFORCE PLANNER malignant neoplasms of neoplasms of colon colon Insomnia, 307.42 Active Indigo 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 OFFICE WORKFORCE PLANNER disorder of initiating or maintaining sleep Establish V68.89 Resolved Indigo Encounters for care or get 01/16 07/02 Yokum OFFICE WORKFORCE PLANNER other specified acquainted administrative visit purpose Weakness, 342.90 Resolved Indigo Hemiplegia, left side of 06/20 10/18 Yokum OFFICE WORKFORCE PLANNER unspecified, body affecting unspecified side TIA 435.9 Active Indigo Unspecified 06/20 07/02 Yokum OFFICE WORKFORCE PLANNER transient cerebral ischemia Knee pain, 719.46 Active Indigo Pain in joint bilateral 06/20 10/18 Yokum OFFICE WORKFORCE PLANNER involving lower leg Bronchitis 490 Resolved Indigo Bronchitis, not 07/23 10/18 Yokum OFFICE WORKFORCE PLANNER specified as acute or chronic Diabetes 357.2 Active Maliheh Polyneuropathy mellitus, 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 MANAGER ENGAGEMENT 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 y Knee pain, 719.46 Active Indigo Pain in joint right 06/20 10/18 Yokum OFFICE WORKFORCE PLANNER involving lower leg Jesi 112.3 Active Indigo Candidiasis of intertrigo 10/09 10/18 Yokum OFFICE WORKFORCE PLANNER skin and nails Hyperlipidemi 272.4 Active Anne Other and a 12/24 12/24 Neil unspecified RMA hyperlipidemia Incontinence, 788.33 Active Indigo Mixed mixed, 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 OFFICE WORKFORCE PLANNER incontinence urge/stress (female) (male) Female stress 625.6 Active Yury Monaco Stress incontinence 01/03 01/03 Cy patel MD female Vaginal odor 623.8 Active Gloria Other specified 05/28 05/28 Naff COMPUTER HARDWARE TECHNICIAN noninflammatory disorders of vagina Urinary tract 599.0 Active Indigo Urinary tract infection 05/28 05/28 Yok OFFICE WORKFORCE PLANNER infection, site not specified Urine odor 791.9 Active Indigo Other 05/28 06/26 Yokum OFFICE WORKFORCE PLANNER nonspecific findings on examination of urine ABNORMAL VAGINAL ICD-626.9 Inactive Maite Sanchez BLEEDING PhD SCABIES ICD-133.0 Inactive Maite Sanchez PhD FATIGUE ICD-780.79 Inactive Indigo Yokum OFFICE WORKFORCE PLANNER OTH GENERAL ICD-V70.3 Inactive Maite Sanchez MEDICAL PhD EXAMINATION ADMIN PURPOSES OTHER ABNORMAL ICD-790.29 Inactive Maite Sanchez GLUCOSE MD PhD ACUTE BRONCHITIS ICD-466.0 Inactive Maite Sanchez PhD DEPENDENT EDEMA, ICD-782.3 Inactive Indigo Yokum LEGS, BILATERAL OFFICE WORKFORCE PLANNER HYPOKALEMIA, MILD ICD-276.8 Inactive Indigo Yokum OFFICE WORKFORCE PLANNER Diabetes mellitus, ICD-250.02 Inactive Indigo Yokum type II, OFFICE WORKFORCE PLANNER uncontrolled Sinusitis, ICD-461.1 Inactive Ismael Coyne frontal, acute Amandeep ONEAL Laryngitis, acute ICD-464.00 Inactive Ismael Coyne Amandeep ONEAL Routine ICD-V72.31 Inactive Indigo Yokum gynecological OFFICE WORKFORCE PLANNER examination Postmenopausal ICD-627.1 Inactive Indigo Yokum 2015 bleeding OFFICE WORKFORCE PLANNER Screening for ICD-V76.51 Inactive Indigo Yokum 2015 malignant OFFICE WORKFORCE PLANNER neoplasms of colon Establish care or ICD-V68.89 Inactive Indigo Yokum get acquainted OFFICE WORKFORCE PLANNER visit Weakness, left ICD-342.90 Inactive Indigo Yokum side of body OFFICE WORKFORCE PLANNER Bronchitis ICD-490 Inactive Indigo Yokum OFFICE WORKFORCE PLANNER Medication List Medication Instructions Start Stop Generic NDC Status Provider Patient Date Date Name Instruction REGINALDRE 5 1 tablet SOLIFENACIN 84846666765 Active J Carlos Enrique Active MG TABS daily SUCCINATE Cy ONEAL CIPRO 250 MG 1 tablet 2 CIPROFLOXACIN 43210333267 No Indigo Active TAB by mouth 0 HCL Longer Yokum twice 1 Active OFFICE WORKFORCE PLANNER daily 7 METFORMIN 2 tablets 2 METFORMIN HCL 06953039524 No Indigo Active HCL 500 MG by mouth 0 Longer Yokum TB24 twice 1 Active OFFICE WORKFORCE PLANNER daily 2 AMARYL 1 MG 1 tablet 2 GLIMEPIRIDE 11310012390 No Indigo Active ORAL TABS orally 0 Longer Yokum twice 1 Active OFFICE WORKFORCE PLANNER daily 2 NYSTATIN apply to NYSTATIN 29822825086 Active Indigo Active 091630 rash TID Yokum UNIT/GM CREA PRN OFFICE WORKFORCE PLANNER TROKENDI XR 2 tab TOPIRAMATE 27433010984 Active Maliheh Active 100 MG ORAL daily Ziglari [id number] MANAGER ENGAGEMENT METOPROLOL 1 tab po METOPROLOL 13548941445 Active Indigo Active TARTRATE 25 bid TARTRATE Yokum MG TABS OFFICE WORKFORCE PLANNER AZITHROMYCIN 2 po qd x 2 AZITHROMYCIN 12462512936 No Jillina Active 250 MG TABS 1 day, 0 Longer Frazell then 1 po 1 Active OFFICE WORKFORCE PLANNER qd x 4 6 days / 0 3 / 2 6 PREDNISONE 2 pills 2 PREDNISONE 33101246930 No Jillina Active 20 MG TAB daily x 4 0 Longer Frazell days 1 Active OFFICE WORKFORCE PLANNER 6 / 0 3 / 2 5 PIOGLITAZONE take one a PIOGLITAZONE 95478646655 Active Maliheh Active HCL 30 MG day HCL Ziglari ORAL TABS MANAGER ENGAGEMENT JANUVIA 100 1 tablet 2 SITAGLIPTIN 54646608240 No Indigo Active MG TABS by mouth 0 PHOSPHATE Longer Yokum daily 1 Active OFFICE WORKFORCE PLANNER 6 / 0 2 / 1 6 ATORVASTATIN 1 pill by ATORVASTATIN 52539980750 Active Indigo Active CALCIUM 10 mouth CALCIUM Yokum MG TABS nightly, OFFICE WORKFORCE PLANNER for cholestero l ASPIRIN 81 1 po qd ASPIRIN 24322838584 Active Indigo Active MG ORAL TABS Yokum OFFICE WORKFORCE PLANNER NITROFURANTO One 2 NITROFURANTOIN 17298701815 No Indigo Active IN MONOHYD capsule 0 MONOHYD MACRO Longer Yokum MACRO 100 MG BID for 1 Active OFFICE WORKFORCE PLANNER CAPS UTI 6 / 0 / 3 TRAMADOL HCL 1/2 po tid 2 TRAMADOL HCL 82472615637 No Jillina Active 50 MG TABS with ES 0 Longer [place]ell Tylenol 1 Active OFFICE WORKFORCE PLANNER prn pain 5 / 0 2 VYVANSE 20 1 tablet 2 LISDEXAMFETAMIN 82035362715 No Jillina Active MG ORAL CAPS daily for 0 E DIMESYLATE Longer [place]ell binge 1 Active OFFICE WORKFORCE PLANNER eating 5 disorder / 0 2 LASIX 20 MG 2 tablet FUROSEMIDE 25148982392 Active Indigo Active TAB by mouth Yokum daily OFFICE WORKFORCE PLANNER CELEBREX 200 1 tablet CELECOXIB 93040469700 Active Indigo Active MG CAPS by mouth Yokum daily with OFFICE WORKFORCE PLANNER meals PREDNISONE 2 tablets 2 PREDNISONE 95665820779 No Joseph W Active 20 MG TAB today, 0 Longer Farooq DO then 1 1 Active tablet 5 days 2-4 / 0 4 / 1 3 DIFLUCAN 100 1 tablet 2 FLUCONAZOLE 40660728297 No Joseph W Active MG TAB by mouth 0 Longer Farooq DO daily x 3 1 Active days 5 / 0 4 / 1 3 DIFLUCAN 100 1 tablet 2 FLUCONAZOLE 55474034624 No Joseph W Active MG TABS by mouth 0 Longer Farooq DO every 1 Active other day 5 for 2 / doses 0 1 / 2 3 ZOFRAN 4 MG 1 po q6hr ONDANSETRON HCL 63450652844 Active Joseph W Active TABS PRN Nausea Farooq DO PREDNISONE 2 tabs 2 PREDNISONE 91086882424 No Joseph W Active 20 MG TAB daily for 0 Longer Farooq DO 3 days, 1 1 Active tab daily 4 for 3 / days, 1/2 1 tab daily 0 for 2 days / 2 5 AMOXICILLIN 2 po BID x 2 AMOXICILLIN 98080614423 No Maite C Active 500 MG CAPS 10 days 0 Longer Laura ONEAL 1 Active PhD 0 / 2 0 LISINOPRIL 1 tablet 2 LISINOPRIL 31131360675 No Maite C Active 20 MG TABS by mouth 0 Longer Kimberlyl MD daily 1 Active PhD 0 / 0 POTASSIUM 2 capsule 2 POTASSIUM 60684565674 No Joseph W Active CHLORIDE CR by mouth 0 CHLORIDE Longer Farooq DO 10 MEQ CPCR daily 1 Active 4 / 0 8 / 2 9 SPIRONOLACTO 1 tablet 2 SPIRONOLACTONE 37953952191 No Joseph W Active NE 25 MG TAB by mouth 0 Longer Farooq DO daily 1 Active 4 / 0 8 2 9 METFORMIN 1 tablet 2 METFORMIN HCL 50681935243 No Joseph W Active HCL 500 MG by mouth 0 Longer Farooq DO TABS twice 1 Active daily 4 / 0 8 / 2 9 AMARYL 1 MG 1 tab 2 GLIMEPIRIDE 74903995745 No Joseph W Active TABS twice 0 Longer Farooq DO daily 1 Active 4 / 0 8 / 2 9 PHENTERMINE 1 po q am 2 PHENTERMINE HCL 07367898669 No Joseph W Active HCL 37.5 MG for wt. 0 Longer Farooq DO TABS loss 1 Active 3 / 1 2 / 2 3 PROMETHAZINE 1 tab by 2 PROMETHAZINE 10970659102 No Joseph W Active HCL 25 MG mouth 0 HCL Longer Farooq DO TABS every 6 1 Active hours as 3 needed / 0 9 / 0 9 CIPROFLOXACI Take one 2 CIPROFLOXACIN 19734783073 No Joseph W Active N HCL 500 MG (1) tablet 0 HCL Longer Farooq DO TABS by mouth 1 Active twice a 3 day / 0 9 / 0 9 ABILIFY 5 MG one p.o. 2 ARIPIPRAZOLE 55361537784 No Joseph W Active TABS q. day 0 Longer Farooq DO 1 Active 3 / 0 9 / 0 9 HYDROCHLOROT 2 tabs 2 HYDROCHLOROTHIA 26918319735 No Joseph W Active HIAZIDE 25 every 0 ZIDE Longer Farooq DO MG TABS morning 1 Active 3 / 0 6 / 2 7 ABILIFY 2 MG 1 po q hs 2 ARIPIPRAZOLE 32147596217 No Joseph W Active TABS for major 0 Longer [facility] depression 1 Active 3 / 0 5 / 0 7 ADIPEX-P 1/2 tab po 2 PHENTERMINE HCL 24489504911 No Casey Active 37.5 MG CAPS q am for 0 Longer [facility] weight 1 Active loss 3 / 0 5 / 0 1 CIPRO 500 MG 1 tablet 2 CIPROFLOXACIN 30992455015 No Casey Active TAB by mouth 0 HCL Longer [facility] twice 1 Active daily 3 / 0 5 / 0 1 NECON 1 po daily 2 NORETHINDRONE-E 17906444004 No Casey Active () - 0 ESTRADIOL Longer [facility] MG-MCG TABS 1 Active 3 / 0 5 / 0 1 TRAMADOL HCL 1 po tid 2 TRAMADOL HCL 93791918787 No Casey Active 50 MG TABS with ES 0 Longer [facility] Tylenol 1 Active 3 / 0 5 / 0 1 FLUCONAZOLE one p.o. 2 FLUCONAZOLE 34440412469 No Casey Active 100 MG TABS q. day 2 0 Longer [facility] days 1 Active 3 / 0 5 / 0 1 POTASSIUM 1 capsule 2 POTASSIUM 60087014381 No Casey Active CHLORIDE CR by mouth 0 CHLORIDE Longer [facility] 10 MEQ CPCR daily 1 Active 3 / 0 5 / 0 1 IMIPRAMINE Take 6 IMIPRAMINE HCL 82763226987 Active Indigo Active HCL 50 MG tablets by [facility]okum TABS mouth at OFFICE WORKFORCE PLANNER bedtime DIFLUCAN 100 1 tablet 2 FLUCONAZOLE 20405170088 No Joseph W Active MG TAB by mouth 0 Longer [facility] daily 1 Active 2 / 0 2 / 2 4 VERAPAMIL 2 po bid VERAPAMIL HCL 01082363515 Active Indigo Active HCL CR 120 Yokum MG TAB CR OFFICE WORKFORCE PLANNER PERMETHRIN 5 apply neck 2 PERMETHRIN 93578704572 No Joseph W Active % CREA to toes 0 Longer [facility] tonight 1 Active and then 2 rinse off / in 0 morning. 1 repeat at / 7 days 2 0 SEROQUEL XR one p.o. 2 QUETIAPINE 18633790908 No Joseph W Active 50 MG q. evening 0 FUMARATE Longer Farooq DO [id number] 1 Active 2 / 0 1 / 2 0 TRAMADOL HCL 1-2 2 TRAMADOL HCL 20370538503 No Joseph W Active 50 MG TABS tablets 0 Longer Farooq DO every 6-8 1 Active hours as 2 needed for / pain 0 1 / 2 0 ALPRAZOLAM 3 one p.o. ALPRAZOLAM 51089426123 Active Indigo Active MG [id number] q.h.s. Yokum OFFICE WORKFORCE PLANNER ALPRAZOLAM Take 1 2 ALPRAZOLAM 38061099257 No Joseph W Active XR [id number] tablet by 0 [id number] Longer Farooq DO mouth at 1 Active bedtime 1 / 2 9 DIFLUCAN 100 1 tablet 2 FLUCONAZOLE 57578390698 No Joseph W Active MG TAB by mouth 0 Longer Farooq DO daily 1 Active 0 / 0 6 AMBIEN 10 MG 1 tab by ZOLPIDEM 13049493185 Active Indigo Active TAB mouth at TARTRATE [facility] bedtime as OFFICE WORKFORCE PLANNER needed for sleep DIFLUCAN 100 1 tablet DIFLUCAN 676701 FLUCONAZOLE Inactive MG TAB by mouth 100 MG TAB daily ALPRAZOLAM Take 1 ALPRAZOLAM ALPRAZOLAM Inactive XR [id number] tablet by XR [id number] mouth at [id number] bedtime TRAMADOL HCL 1-2 TRAMADOL 837791 TRAMADOL HCL Inactive 50 MG TABS tablets HCL 50 MG every 6-8 TABS hours as needed for pain SEROQUEL XR one p.o. SEROQUEL XR QUETIAPINE Inactive 50 MG q. 50 MG FUMARATE [id number] evening [id number] PERMETHRIN 5 apply PERMETHRIN 052417 PERMETHRIN Inactive % CREA neck to 5 % CREA toes tonight and then rinse off in morning. repeat at 7 days DIFLUCAN 100 1 tablet DIFLUCAN 496088 FLUCONAZOLE Inactive MG TAB by mouth 100 MG TAB daily POTASSIUM 1 capsule POTASSIUM POTASSIUM Inactive CHLORIDE CR by mouth CHLORIDE CR CHLORIDE 10 MEQ CPCR daily 10 MEQ CPCR FLUCONAZOLE one p.o. FLUCONAZOLE 19760111 FLUCONAZOLE Inactive 100 MG TABS q. day 2 100 MG TABS days TRAMADOL HCL 1 po tid TRAMADOL 661104 TRAMADOL HCL Inactive 50 MG TABS with ES HCL 50 MG Tylenol TABS NECON 35 1 po NECON NORETHINDRONE- Inactive () 1-35 daily () 1-35 ETH ESTRADIOL MG-MCG TABS MG-MCG TABS CIPRO 500 MG 1 tablet CIPRO 500 569525 CIPROFLOXACIN Inactive TAB by mouth MG TAB HCL twice daily ADIPEX-P 1/2 tab ADIPEX-P 088158 PHENTERMINE Inactive 37.5 MG CAPS po q am 37.5 MG HCL for CAPS weight loss ABILIFY 2 MG 1 po q hs ABILIFY 2 527034 ARIPIPRAZOLE Inactive TABS for major MG TABS depressio n HYDROCHLOROT 2 tabs HYDROCHLORO 676463 HYDROCHLOROTHI Inactive HIAZIDE 25 every THIAZIDE 25 AZIDE MG TABS morning MG TABS ABILIFY 5 MG one p.o. ABILIFY 5 748992 ARIPIPRAZOLE Inactive TABS q. day MG TABS CIPROFLOXACI Take one CIPROFLOXAC 233301 CIPROFLOXACIN Inactive N HCL 500 MG (1) IN HCL 500 HCL TABS tablet by MG TABS mouth twice a day PROMETHAZINE 1 tab by PROMETHAZIN 655000 PROMETHAZINE Inactive HCL 25 MG mouth E HCL 25 MG HCL TABS every 6 TABS hours as needed PHENTERMINE 1 po q am PHENTERMINE 255879 PHENTERMINE Inactive HCL 37.5 MG for wt. HCL 37.5 MG HCL TABS loss TABS AMARYL 1 MG 1 tab AMARYL 1 MG 19910808 GLIMEPIRIDE Inactive TABS twice TABS daily METFORMIN 1 tablet METFORMIN 333266 METFORMIN HCL Inactive HCL 500 MG by mouth HCL 500 MG TABS twice TABS daily SPIRONOLACTO 1 tablet SPIRONOLACT 878309 SPIRONOLACTONE Inactive NE 25 MG TAB by mouth ONE 25 MG daily TAB POTASSIUM 2 capsule POTASSIUM POTASSIUM Inactive CHLORIDE CR by mouth CHLORIDE CR CHLORIDE 10 MEQ CPCR daily 10 MEQ CPCR LISINOPRIL 1 tablet LISINOPRIL 899174 LISINOPRIL Inactive 20 MG TABS by mouth 20 MG TABS daily DIFLUCAN 100 1 tablet DIFLUCAN 844537 FLUCONAZOLE Inactive MG TABS by mouth 100 MG TABS every other day for 2 doses DIFLUCAN 100 1 tablet DIFLUCAN 753678 FLUCONAZOLE Inactive MG TAB by mouth 100 MG TAB daily x 3 days PREDNISONE 2 tablets PREDNISONE 274876 PREDNISONE Inactive 20 MG TAB today, 20 MG TAB then 1 tablet days 2-4 VYVANSE 20 1 tablet VYVANSE 20 LISDEXAMFETAMI Inactive MG ORAL CAPS daily for MG ORAL NE DIMESYLATE binge CAPS eating disorder TRAMADOL HCL 1/2 po TRAMADOL 184984 TRAMADOL HCL Inactive 50 MG TABS tid [...] TB24 daily AMOXICILLIN 2 po BID AMOXICILLIN 466678 AMOXICILLIN Inactive 500 MG CAPS x 10 days 500 MG CAPS PREDNISONE 2 tabs PREDNISONE 207994 PREDNISONE Inactive 20 MG TAB daily for 20 MG TAB 3 days, 1 tab daily for 3 days, 1/2 tab daily for 2 days NITROFURANTO One NITROFURANT 5387726 NITROFURANTOIN Inactive IN MONOHYD capsule OIN MONOHYD MONOHYD MACRO MACRO 100 MG BID for MACRO 100 CAPS UTI MG CAPS PREDNISONE 2 pills PREDNISONE 352887 PREDNISONE Inactive 20 MG TAB daily x 4 20 MG TAB days AZITHROMYCIN 2 po qd x AZITHROMYCI 7156351 AZITHROMYCIN Inactive 250 MG TABS 1 day, N 250 MG then 1 po TABS qd x 4 days CIPRO 250 MG 1 tablet CIPRO 250 154100 CIPROFLOXACIN Inactive TAB by mouth MG TAB [...] HGBA1C - Chemistry sodium, serum 140 mmol/L 710-600 7915/06/03 potassium, serum 3.9 mmol/L 3.5-5.2 chloride, serum [...] 214 10^3/MM^3 10*3/mm3 142-424 Lab Report: Chlamydia/GC APTIMA/[id number] - Lab chlamydia DNA probe NOT DETECTED NOT DETECTED Lab Report: Chlamydia/GC APTIMA/[id number] - Microbiology Neisseria gonorrhoeae DNA probe NOT DETECTED NOT DETECTED Lab Report: Lipid Panel - Chemistry cholesterol, serum 157 mg/dL 852-040 4824/08/22 triglyceride, serum, fasting 215 mg/dL 30-200 HDL [...] mg/dL Encounters Code Encounter Date Provider Facility CPT-97258 Level 4 Est[facility] DATA WAREHOUSE DEVELOPER [place] CPT-75540 Level 4 New Patient Yury Benoit MD [facility] 15:17:12 CDT CPT-21732 Level 3 Est[facility] [place] CPT-68500 Level 4 Est. [facility] CD[facility] [place]ell CPT-63612 Level [facility] Est[facility] 08:58:07 CDT MANAGER ENGAGEMENT CPT-00054 Level 3 Est. Patient Faby Marino [facility] 14:40:56 CDT OFFICE WORKFORCE PLANNER CPT-60842 Level 4 Est. Patient Arnold Berrios [facility] 17:29:53 DATA WAREHOUSE DEVELOPER MANAGER ENGAGEMENT CPT-28135 Level 4 Est. Patient Indigo Sexton [facility] 09:51:54 DATA WAREHOUSE DEVELOPER CPT-51954 Level 3 Est. Patient Indigo Sexton [facility] 18:59:38 CDT CPT-01641 Level 3 Est. Patient Joseph Pineda [facility] 14:42:12 CDT -[facility] CPT-02832 Level 3 Est. Patient Joseph Pineda [facility] 22:18:20 CDT -[facility] CPT-02604 Level 3 Est. Patient Joseph Pineda [facility] 16:46:04 CDT -[facility] CPT-08365 Level 3 Est. Patient Harrison Edwin [facility] 15:39:53 CDT -RHC CPT-66065 Level 3 Est. Patient Maite Sanchez MD [facility] 13:33:34 CDT -RHC CPT-67376 Level 3 Est. Patient [facility] 11:37:08 CDT -RHC CPT-08061 Level 3 Est. Patient Joseph Pineda [facility] 17:13:29 DATA WAREHOUSE DEVELOPER -RHC CPT-89618 Level 3 Est. Patient Joseph Pineda [facility] 18:42:44 CDT CPT-26118 Level 3 Est. Patient Joseph Pineda [facility] 16:25:39 CDT CPT-58134 Level 3 Est. Patient Casey ARCHIBALD [facility] 09:52:45 CDT -RHC CPT-96408 Level 3 Est. Patient Joseph Pineda [facility] 11:03:29 DATA WAREHOUSE DEVELOPER -RHC CPT-63355 Level 3 Est. Patient Joseph Pineda [facility] 11:03:08 DATA WAREHOUSE DEVELOPER -RHC CPT-86370 Level 3 Est. Patient Joseph Edwin [facility] 14:33:31 CDT -[facility] CPT-47675 Level 3 Est. Patient Joseph Trivedi [facility] 17:05:02 DATA WAREHOUSE DEVELOPER -C CPT-32391 Level 3 Est. Patient Joseph Trivedi [facility] 17:48:06 DATA WAREHOUSE DEVELOPER -R[facility] CPT-46844 Level 3 Est. Patient Joseph Trivedi [facility] 14:59:22 DATA WAREHOUSE DEVELOPER -RHC CPT-53341 Level 3 Est. Patient Joseph Trivedi [facility] - 21:45:56 DATA WAREHOUSE DEVELOPER [place] C CPT-55531 Level 3 Est. Patient Joseph Pineda [facility] 21:29:50 CDT -C CPT-17253 Level 3 Est. Patient Joseph Pineda [facility] 12:41:09 CDT -C Procedures Code Procedure Name Date Entry Date Standard Description CPT-47584 Wet Mount - LAB USE ONLY 12:39:03 DATA WAREHOUSE DEVELOPER CPT-99539 Vaginal Culture - LAB USE ONLY 12:39:03 DATA WAREHOUSE DEVELOPER CPT-55291 Urine Culture - LAB USE ONLY 11:52:44 DATA WAREHOUSE DEVELOPER CPT-38906 UA w micro - LAB USE ONLY 11:52:44 DATA WAREHOUSE DEVELOPER CPT-06358 Postop F/U Visit 12:08:35 CDT CPT-09765 Postop F/U Visit 18:20:10 CDT CPT-A4351 Coloplast Female Cath 09:37:10 CDT CPT-11374 Urine Dip (Floor Use Only) 15:17:13 CDT CPT-40624 Dil F ureth int 15:17:13 CDT CPT-65542 Venipuncture Draw Fee 09:19:08 CDT CPT-59394 Lipid - LAB USE ONLY 09:19:07 CDT CPT-JTINJ Asp/Joint Injection 09:26:49 CDT CPT-02790 Chest 2V Frontal and Lat 14:47:43 CDT CPT-JTINJ Asp/Joint Injection 09:51:53 DATA WAREHOUSE DEVELOPER CPT-OV Office Visit 17:39:05 CDT CPT-OV Office Visit 15:19:50 CDT CPT-05792 Sono transvag pelvis non OB uterus ovaries cervix 18:04:34 CDT CPT-61885 Venipuncture Draw Fee 08:55:49 DATA WAREHOUSE DEVELOPER
--- OUTSIDE RECORDS SUMMARY | 2016-11-20 13:23 | External Medical Summary | Clinical Summary ---
:1965 Author Organization [facility] [place] Address [address] [address] Phone Allergies, Adverse Reactions, Alerts Allergy Name Reaction Description Start Date Severity Status Provider NKDA Critical Active Indigomikayla Jordanum ENTERTAINMENT PRODUCTION PROFESSIONAL NKDA Critical No Longer Indigo Yokum ENTERTAINMENT PRODUCTION PROFESSIONAL Active NKDA Critical Inactive Adrianna Elder Conditions [...] Resolved Indigo Other malaise 05/24 07/02 Yokum ENTERTAINMENT PRODUCTION PROFESSIONAL and fatigue SLEEP APNEA, 327.23 Active Joseph Pineda Obstructive OBSTRUCTIVE, 06/27 06/27 Farooq DO sleep apnea MILD (adult) (pediatric) OVERWEIGHT 278.02 Inactive Joseph Pineda Overweight 06/28 06/28 Farooq DO Obesity 278.00 Active Indigo Obesity, 06/28 10/18 Yokum ENTERTAINMENT PRODUCTION PROFESSIONAL unspecified OTH GENERAL V70.3 Resolved Maite Gutierrez Other general MEDICAL Laura ONEAL medical EXAMINATION PhD examination for ADMIN PURPOSES administrative purposes OTHER ABNORMAL 790.29 Resolved Maite C Other abnormal GLUCOSE 05/20 Laura ONEAL glucose PhD ACUTE 466.0 Resolved Maite C Acute BRONCHITIS 09/02 Laura ONEAL bronchitis PhD DEPENDENT 782.3 Resolved Indigo Edema EDEMA, LEGS, 10/29 10/18 Yokum ENTERTAINMENT PRODUCTION PROFESSIONAL BILATERAL HYPOKALEMIA, 276.8 Resolved Indigo Hypopotassemia MILD 10/29 07/02 Youm ENTERTAINMENT PRODUCTION PROFESSIONAL Diabetes, Type 250.00 Inactive Joseph Pineda Diabetes 2 06/27 06/27 Farooq DO mellitus without mention of complication, type II or unspecified type, not stated as uncontrolled Diabetes 250.02 Resolved Indigo Diabetes mellitus, type 06/27 ENTERTAINMENT PRODUCTION PROFESSIONAL mellitus II, without mention uncontrolled of complication, [...] Resolved Indigo Routine gynecological 12/14 07/02 Yo ENTERTAINMENT PRODUCTION PROFESSIONAL gynecological examination examination Postmenopausal 627.1 Resolved Indigo Postmenopausal bleeding 12/14 ENTERTAINMENT PRODUCTION PROFESSIONAL bleeding Screening for V76.51 Resolved Indigo Screening for malignant 12/26 07/02 Yokum ENTERTAINMENT PRODUCTION PROFESSIONAL malignant neoplasms of neoplasms of colon colon Insomnia, 307.42 Active Indigo 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 ENTERTAINMENT PRODUCTION PROFESSIONAL disorder of initiating or maintaining sleep Establish care V68.89 Resolved Indigo Encounters for or get 01/16 07/02 Yo ENTERTAINMENT PRODUCTION PROFESSIONAL other specified acquainted administrative visit purpose Weakness, left 342.90 Resolved Indigo Hemiplegia, side of body 06/20 10/18 Yokum ENTERTAINMENT PRODUCTION PROFESSIONAL unspecified, affecting unspecified side TIA 435.9 Active Indigo Unspecified 06/20 07/02 Yokum ENTERTAINMENT PRODUCTION PROFESSIONAL transient cerebral ischemia Knee pain, 719.46 Active Indigo Pain in joint bilateral 06/20 10/18 Yokum ENTERTAINMENT PRODUCTION PROFESSIONAL involving lower leg Bronchitis 490 Resolved Indigo Bronchitis, not 07/23 10/18 Yokum ENTERTAINMENT PRODUCTION PROFESSIONAL specified as acute or chronic Diabetes 357.2 Active Maliheh Polyneuropathy mellitus, 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WEB CONTENT DIRECTOR 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y Knee pain, 719.46 Active Indigo Pain in joint right 06/20 10/18 Yokum ENTERTAINMENT PRODUCTION PROFESSIONAL involving lower leg Jesi 112.3 Active Indigo Candidiasis of intertrigo 10/09 10/18 Yokum ENTERTAINMENT PRODUCTION PROFESSIONAL skin and nails Hyperlipidemia 272.4 Active Anne Other and 12/24 12/24 Neil unspecified RMA hyperlipidemia ABNORMAL VAGINAL ICD-626.9 Inactive Maite Sanchez BLEEDING PhD SCABIES ICD-133.0 Inactive Maite Sanchez PhD FATIGUE ICD-780.79 Inactive Indigo Yokum ENTERTAINMENT PRODUCTION PROFESSIONAL OT GENERAL ICD-V70.3 Inactive Maite Sanchez MEDICAL PhD EXAMINATION ADMIN PURPOSES OTHER ABNORMAL ICD-790.29 Inactive Maite Sanchez GLUCOSE PhD ACUTE BRONCHITIS ICD-466.0 Inactive Maite Sanchez PhD DEPENDENT EDEMA, ICD-782.3 Inactive Indigo Yokum LEGS, BILATERAL ENTERTAINMENT PRODUCTION PROFESSIONAL HYPOKALEMIA, MILD ICD-276.8 Inactive Indigo Jordanum ENTERTAINMENT PRODUCTION PROFESSIONAL Diabetes mellitus, ICD-250.02 Inactive Indigo Yokum type II, ENTERTAINMENT PRODUCTION PROFESSIONAL uncontrolled Sinusitis, ICD-461.1 Inactive Ismael Coyne frontal, acute Amandeep ONEAL Laryngitis, acute ICD-464.00 Inactive Ismael Coyne Amandeep ONEAL Routine ICD-V72.31 Inactive Indigo Sexton gynecological ENTERTAINMENT PRODUCTION PROFESSIONAL examination Postmenopausal ICD-627.1 Inactive Indigomikayla Jordanum 2015 bleeding ENTERTAINMENT PRODUCTION PROFESSIONAL Screening for ICD-V76.51 Inactive Indigo Jordanum 2015 malignant ENTERTAINMENT PRODUCTION PROFESSIONAL neoplasms of colon Establish care or ICD-V68.89 Inactive Indigomikayla Jordanum get acquainted ENTERTAINMENT PRODUCTION PROFESSIONAL visit Weakness, left ICD-342.90 Inactive Indigo Yonickieum side of body ENTERTAINMENT PRODUCTION PROFESSIONAL Bronchitis ICD-490 Inactive Indigo Yokum ENTERTAINMENT PRODUCTION PROFESSIONAL Medication List Medication Instructions Start Stop Generic NDC Status Provider Patient Date Date Name Instruction NYSTATIN apply to NYSTATIN [id number] Active Indigo Active 610178 UNIT/GM rash TID Yokum CREA PRN ENTERTAINMENT PRODUCTION PROFESSIONAL TROKENDI XR 2 tab daily TOPIRAMATE 24250134224 Active Maliheh Active 100 MG ORAL Ziglari [id number] WEB CONTENT DIRECTOR METOPROLOL 1 tab po METOPROLOL 36870554385 Active Indigo Active TARTRATE 25 MG bid TARTRATE Yokum TABS ENTERTAINMENT PRODUCTION PROFESSIONAL AZITHROMYCIN 2 po qd x 1 2 AZITHROMYCIN 31331320490 No Jillina Active 250 MG TABS day, then 1 0 Longer [place]ell po qd x 4 1 Active ENTERTAINMENT PRODUCTION PROFESSIONAL days 6 / 0 3 / 2 6 PREDNISONE 20 2 pills 2 PREDNISONE 04603571648 No Jillina Active MG TAB daily x 4 0 Longer [place] days 1 Active ENTERTAINMENT PRODUCTION PROFESSIONAL 6 / 0 3 / 5 PIOGLITAZONE take one a PIOGLITAZONE 99739998617 Active Maliheh Active HCL 30 MG ORAL day HCL Ziglari TABS WEB CONTENT DIRECTOR JANUVIA 100 MG 1 tablet by 2 SITAGLIPTIN 67595495931 No Indigo Active TABS mouth daily 0 PHOSPHATE Longer Yokum 1 Active ENTERTAINMENT PRODUCTION PROFESSIONAL 6 / 0 2 / 6 ATORVASTATIN 1 pill by ATORVASTATIN 17867414373 Active Indigo Active CALCIUM 10 MG mouth CALCIUM Yokum TABS nightly, ENTERTAINMENT PRODUCTION PROFESSIONAL for cholesterol ASPIRIN 81 MG 1 po qd ASPIRIN 52619339332 Active Indigo Active ORAL TABS Yokum ENTERTAINMENT PRODUCTION PROFESSIONAL NITROFURANTOIN One capsule 2 NITROFURANTOI 75802898929 No Indigo Active MONOHYD MACRO BID for UTI 0 N MONOHYD Longer Yokum 100 MG CAPS 1 MACRO Active ENTERTAINMENT PRODUCTION PROFESSIONAL 6 / 0 3 METFORMIN HCL 2 tablets METFORMIN HCL 37760514876 Active Indigo Active 500 MG TB24 by mouth Yokum twice daily ENTERTAINMENT PRODUCTION PROFESSIONAL TRAMADOL HCL 1/2 po tid 2 TRAMADOL HCL 41273503293 No Jillina Active 50 MG TABS with ES 0 Longer [place] Tylenol prn 1 Active ENTERTAINMENT PRODUCTION PROFESSIONAL pain 5 / 0 8 / 2 VYVANSE 20 MG 1 tablet 2 LISDEXAMFETAM 60852625356 No Jillina Active ORAL CAPS daily for 0 INE Longer [place] binge 1 DIMESYLATE Active ENTERTAINMENT PRODUCTION PROFESSIONAL eating 5 disorder / 0 8 / 2 LASIX 20 MG 2 tablet by FUROSEMIDE 21904923278 Active Indigo Active TAB mouth daily Yokum ENTERTAINMENT PRODUCTION PROFESSIONAL CELEBREX 200 1 tablet by CELECOXIB 36433812114 Active Indigo Active MG CAPS mouth daily Yokum with meals ENTERTAINMENT PRODUCTION PROFESSIONAL PREDNISONE 20 2 tablets 2 PREDNISONE 28847350222 No Joseph W Active MG TAB today, then 0 Longer Farooq DO 1 tablet 1 Active days 2-4 5 / 0 3 DIFLUCAN 100 1 tablet by 2 FLUCONAZOLE 43259329870 No Joseph W Active MG TAB mouth daily 0 Longer Farooq DO x 3 days 1 Active 5 / 0 4 / 3 AMARYL 1 MG 1 tablet GLIMEPIRIDE 79242163968 Active Indigo Active ORAL TABS orally Yokum twice daily ENTERTAINMENT PRODUCTION PROFESSIONAL DIFLUCAN 100 1 tablet by 2 FLUCONAZOLE 41074918677 No Joseph W Active MG TABS mouth every 0 Longer Farooq DO other day 1 Active for 2 doses 5 / 0 1 / 2 3 ZOFRAN 4 MG 1 po q6hr ONDANSETRON 85158828182 Active Joseph W Active TABS PRN Nausea HCL Farooq DO PREDNISONE 20 2 tabs 2 PREDNISONE 90789081236 No Joseph W Active MG TAB daily for 3 0 Longer Farooq DO days, 1 tab 1 Active daily for 3 4 days, 1/2 / tab daily 1 for 2 days 0 / 2 5 AMOXICILLIN 2 po BID x 2 AMOXICILLIN 86683321559 No Maite C Active 500 MG CAPS 10 days 0 Longer Madril 1 Active PhD 0 / 2 0 LISINOPRIL 20 1 tablet by 2 LISINOPRIL 86435022238 No Maite C Active MG TABS mouth 0 Longer Madril daily 1 Active PhD 0 0 POTASSIUM 2 capsule 2 POTASSIUM 11673647398 No Joseph Pineda Active CHLORIDE CR 10 by mouth 0 CHLORIDE Longer Farooq DO MEQ CPCR daily 1 Active 4 / 0 2 9 SPIRONOLACTONE 1 tablet by 2 SPIRONOLACTON 17847499771 No Joseph Pineda Active 25 MG TAB mouth daily 0 E Longer Farooq DO 1 Active 4 / 0 9 METFORMIN HCL 1 tablet 2 METFORMIN HCL 44419279132 No Joseph Pineda Active 500 MG TABS by mouth 0 Longer Farooq DO twice daily 1 Active 4 / 0 2 9 AMARYL 1 MG 1 tab twice 2 GLIMEPIRIDE 89962540985 No Joseph Pineda Active TABS daily 0 Longer Farooq DO 1 Active 4 / 0 / 2 9 PHENTERMINE 1 po q am 2 PHENTERMINE 81401341389 No Joseph Pineda Active HCL 37.5 MG for wt. 0 HCL Longer Farooq DO TABS loss 1 Active 3 / 1 2 / 2 3 PROMETHAZINE 1 tab by 2 PROMETHAZINE 22064529591 No Joseph W Active HCL 25 MG TABS mouth every 0 HCL Longer Farooq DO 6 hours as 1 Active needed 3 / 0 9 / 0 9 CIPROFLOXACIN Take one 2 CIPROFLOXACIN 05263717591 No Joseph W Active HCL 500 MG (1) tablet 0 HCL Longer Farooq DO TABS by mouth 1 Active twice a day 3 / 0 9 / 0 9 ABILIFY 5 MG one p.o. q. 2 ARIPIPRAZOLE 44473135025 No Joseph W Active TABS day 0 Longer Farooq DO 1 Active 3 / 0 9 / 0 9 HYDROCHLOROTHI 2 tabs 2 HYDROCHLOROTH 17800690786 No Joseph W Active AZIDE 25 MG every 0 IAZIDE Longer Farooq DO TABS morning 1 Active 3 / 0 6 / 2 7 ABILIFY 2 MG 1 po q hs 2 ARIPIPRAZOLE 25312339804 No Joseph W Active TABS for major 0 Longer Farooq DO depression 1 Active 3 / 0 5 / 0 7 ADIPEX-P 37.5 1/2 tab po 2 PHENTERMINE 46659125544 No Casey Active MG CAPS q am for 0 HCL Longer [place] weight loss 1 Active PA 3 / 0 5 / 0 1 CIPRO 500 MG 1 tablet by 2 CIPROFLOXACIN 06299115657 No Casey Active TAB mouth twice 0 HCL Longer Leonarda daily 1 Active PA 3 / 0 5 / 0 1 NECON 1/35 1 po daily 2 NORETHINDRONE 55739591619 No Casey Active (28) 1-35 0 -ETH Longer [place] MG-MCG TABS 1 ESTRADIOL Active PA 3 / 0 5 / 0 1 TRAMADOL HCL 1 po tid 2 TRAMADOL HCL 75345113361 No Casey Active 50 MG TABS with ES 0 Longer Tylenol 1 Active PA 3 / 0 5 / 0 1 FLUCONAZOLE one p.o. q. 2 FLUCONAZOLE 39492073590 No Casey Active 100 MG TABS day 2 days 0 Longer Leonarda 1 Active PA 3 / 0 5 / 0 1 POTASSIUM 1 capsule 2 POTASSIUM 96233680785 No Casey Active CHLORIDE CR 10 by mouth 0 CHLORIDE Longer [place] MEQ CPCR daily 1 Active PA 3 / 0 5 / 0 1 IMIPRAMINE HCL Take 6 IMIPRAMINE 95878935895 Active Indigo Active 50 MG TABS tablets by HCL Yokum mouth at ENTERTAINMENT PRODUCTION PROFESSIONAL bedtime DIFLUCAN 100 1 tablet by 2 FLUCONAZOLE 67422297691 No Joseph W Active MG TAB mouth daily 0 Longer Farooq DO 1 Active 2 / 0 2 / 2 4 VERAPAMIL HCL 2 po bid VERAPAMIL HCL 02218928303 Active Indigo Active CR 120 MG TAB Yokum CR ENTERTAINMENT PRODUCTION PROFESSIONAL PERMETHRIN 5 % apply neck 2 PERMETHRIN 28592581658 No Joseph W Active CREA to toes 0 Longer Farooq DO tonight and 1 Active then rinse 2 off in / morning. 0 repeat at 7 1 days / 2 0 SEROQUEL XR 50 one p.o. q. 2 QUETIAPINE 45829304849 No Joseph W Active MG [id number] evening 0 FUMARATE Longer Farooq DO 1 Active 2 / 0 1 / 2 0 TRAMADOL HCL 1-2 tablets 2 TRAMADOL HCL 83532196728 No Joseph W Active 50 MG TABS every 6-8 0 Longer Farooq DO hours as 1 Active needed for 2 pain / 0 1 / 2 0 ALPRAZOLAM 3 one p.o. ALPRAZOLAM 66102326851 Active Indigo Active MG [id number] q.h.s. Yokum ENTERTAINMENT PRODUCTION PROFESSIONAL ALPRAZOLAM XR Take 1 2 ALPRAZOLAM 66511130586 No Joseph W Active [id number] tablet by 0 [id number] Longer Farooq DO mouth at 1 Active bedtime 1 / 2 9 DIFLUCAN 100 1 tablet by 2 FLUCONAZOLE 31908709873 No Joseph W Active MG TAB mouth daily 0 Longer Farooq DO 1 Active 0 / 0 6 AMBIEN 10 MG 1 tab by ZOLPIDEM 52524946155 Active Indigo Active TAB mouth at TARTRATE Yokum bedtime as ENTERTAINMENT PRODUCTION PROFESSIONAL needed for sleep DIFLUCAN 100 1 tablet DIFLUCAN 835418 FLUCONAZOLE Inactive MG TAB by mouth 100 MG TAB daily ALPRAZOLAM Take 1 ALPRAZOLAM ALPRAZOLAM Inactive XR [id number] tablet by XR [id number] mouth at [id number] bedtime TRAMADOL HCL 1-2 TRAMADOL 818730 TRAMADOL HCL Inactive 50 MG TABS tablets HCL 50 MG every 6-8 TABS hours as needed for pain SEROQUEL XR one p.o. SEROQUEL XR QUETIAPINE Inactive 50 MG q. 50 MG FUMARATE [id number] evening [id number] PERMETHRIN 5 apply PERMETHRIN 854957 PERMETHRIN Inactive % CREA neck to 5 [...] days TRAMADOL HCL 1 po tid TRAMADOL 041764 TRAMADOL HCL Inactive 50 MG TABS with ES HCL 50 MG Tylenol TABS NECON 1/35 1 po NECON 1/35 NORETHINDRONE- Inactive (28) 1-35 daily (28) 1-35 ETH ESTRADIOL MG-MCG TABS MG-MCG TABS CIPRO 500 MG 1 tablet CIPRO 500 985602 CIPROFLOXACIN Inactive TAB by mouth MG TAB HCL twice daily ADIPEX-P 1/2 tab ADIPEX-P 319139 PHENTERMINE Inactive 37.5 MG CAPS po q am 37.5 MG HCL for CAPS weight loss ABILIFY 2 MG 1 po q hs ABILIFY 2 088474 ARIPIPRAZOLE Inactive TABS for major MG TABS depressio n HYDROCHLOROT 2 tabs HYDROCHLORO 580276 HYDROCHLOROTHI Inactive HIAZIDE 25 every THIAZIDE 25 AZIDE MG TABS morning MG TABS ABILIFY 5 MG one p.o. ABILIFY 5 131571 ARIPIPRAZOLE Inactive TABS q. day MG TABS CIPROFLOXACI Take one CIPROFLOXAC 794546 CIPROFLOXACIN Inactive N HCL 500 MG (1) IN HCL 500 HCL TABS tablet by MG TABS mouth twice a day PROMETHAZINE 1 tab by PROMETHAZIN 140848 PROMETHAZINE Inactive HCL 25 MG mouth E HCL 25 MG HCL TABS every 6 TABS hours as needed PHENTERMINE 1 po q am PHENTERMINE 708012 PHENTERMINE Inactive HCL 37.5 MG for wt. HCL 37.5 MG HCL TABS loss TABS AMARYL 1 MG 1 tab AMARYL 1 MG 835435 GLIMEPIRIDE Inactive TABS twice TABS daily METFORMIN 1 tablet METFORMIN 599340 METFORMIN HCL Inactive HCL 500 MG by mouth HCL 500 MG TABS twice TABS daily SPIRONOLACTO 1 tablet SPIRONOLACT 310657 SPIRONOLACTONE Inactive NE 25 MG TAB by mouth ONE 25 MG daily TAB POTASSIUM 2 capsule POTASSIUM POTASSIUM Inactive CHLORIDE CR by mouth CHLORIDE CR CHLORIDE 10 MEQ CPCR daily 10 MEQ CPCR LISINOPRIL 1 tablet LISINOPRIL 532455 LISINOPRIL Inactive 20 MG TABS by mouth 20 MG TABS daily DIFLUCAN 100 1 tablet DIFLUCAN 19760111 FLUCONAZOLE Inactive MG TABS by mouth 100 MG TABS every other day for 2 doses DIFLUCAN 100 1 tablet DIFLUCAN 088363 FLUCONAZOLE Inactive MG TAB by mouth 100 MG TAB daily x 3 days PREDNISONE 2 tablets PREDNISONE 621856 PREDNISONE Inactive 20 MG TAB today, 20 MG TAB then 1 tablet days 2-4 VYVANSE 20 1 tablet VYVANSE 20 LISDEXAMFETAMI Inactive MG ORAL CAPS daily for MG ORAL NE DIMESYLATE binge CAPS eating disorder TRAMADOL HCL 1/2 po TRAMADOL 682511 TRAMADOL HCL Inactive 50 MG TABS tid with HCL 50 MG ES TABS Tylenol prn pain JANUVIA 100 1 tablet JANUVIA 100 SITAGLIPTIN Inactive MG TABS by mouth MG TABS PHOSPHATE daily AMOXICILLIN 2 po BID AMOXICILLIN 282038 AMOXICILLIN Inactive 500 MG CAPS x 10 days 500 MG CAPS PREDNISONE 2 tabs PREDNISONE 010853 PREDNISONE Inactive 20 MG TAB daily for 20 MG TAB 3 days, 1 tab daily for 3 days, 1/2 tab daily for 2 days NITROFURANTO One NITROFURANT 2879147 NITROFURANTOIN Inactive IN MONOHYD capsule OIN MONOHYD MONOHYD MACRO MACRO 100 MG BID for MACRO 100 CAPS UTI MG CAPS PREDNISONE 2 pills PREDNISONE 446741 PREDNISONE Inactive 20 MG TAB daily x 4 20 MG TAB days AZITHROMYCIN 2 po qd x AZITHROMYCI 5368646 AZITHROMYCIN Inactive 250 MG TABS 1 day, [...] HGBA1C - Chemistry sodium, serum 140 mmol/L 195-491 7160/06/03 potassium, serum 3.9 mmol/L 3.5-5.2 chloride, serum [...] Panel - Chemistry sodium, serum 136 mmol/L 445-602 9940/01/04 carbon dioxide, venous blood 27.0 mmol/L 21.0-32.0 potassium, serum 4.6 mmol/L 3.5-5.2 chloride, serum 98 mmol/L 98-107 blood glucose 174 mg/dL 65-110 urea nitrogen, blood 12 mg/dL 7-18 creatinine, serum 0.78 mg/dL 0.55-1.30 alanine aminotransferase (SGPT), serum 65 U/L 12-78 aspartate aminotransferase (SGOT), serum 34 U/L 15-37 calcium, serum 8.9 mg/dL 8.5-10.1 bilirubin, serum, total 0.40 mg/dL 0.00-1.00 cholesterol, serum 219 mg/dL 343-786 4420/01/04 triglyceride, serum, fasting 214 mg/dL 30-200 HDL cholesterol, serum 39 mg/dL 32-96 LDL cholesterol, serum 137 mg/dL 0-130 Office Visit: Diabetes Visit - Chemistry cholesterol, target level 200 mg/dL triglyceride, target level 200 mg/dL HDL cholesterol, serum, target level 35 mg/dL LDL target level 100 mg/dL home glucose monitor utilized Yes cholesterol, target level 200 mg/dL triglyceride, target level 200 mg/dL HDL cholesterol, serum, target level 35 mg/dL LDL target level 100 mg/dL Encounters Code Encounter Date Provider Facility CPT-34355 Level 4 Est. Patient Indigo Sexton [facility] - 10:01:06 CDT [facility] CPT-48099 Level 3 Est. Patient [facility] 08:58:07 CDT [facility] CPT-55762 Level 3 Est. Patient Faby Marino [facility] 14:40:56 CDT [facility] CPT-33852 Level 4 Est. Patient [facility] 17:29:53 CANDY ATTENDANT WEB CONTENT DIRECTOR CPT-27753 Level 4 Est. Patient Indigo Sexton [facility] 09:51:54 CANDY ATTENDANT CPT-25077 Level 3 Est. Patient Indigo Sexton [facility] 18:59:38 CDT CPT-98067 Level 3 Est. Patient Joseph Pineda [facility] 14:42:12 CDT -[facility] CPT-39536 Level 3 Est. Patient Joseph Pineda [facility] 22:18:20 CDT -[facility] CPT-77785 Level 3 Est. Patient Joseph Pineda [facility] 16:46:04 CDT -[facility] CPT-40610 Level 3 Est. Patient Joseph Pineda [facility] 15:39:53 CDT -[facility] CPT-41176 Level 3 Est. Patient Maite Sanchez MD [facility] 13:33:34 CDT -[facility] CPT-82048 Level 3 Est. Patient Joseph Pineda [facility] 11:37:08 CDT -[facility] CPT-40761 Level 3 Est. Patient Joseph Pineda [facility] 17:13:29 CANDY ATTENDANT -[facility] CPT-72406 Level 3 Est. Patient Joseph Pineda [facility] 18:42:44 CDT CPT-45132 Level 3 Est. Patient Joseph Pineda [facility] 16:25:39 CDT CPT-71989 Level 3 Est. Patient Casey ARCHIBALD [facility] 09:52:45 CDT -[facility] CPT-61918 Level 3 Est. Patient Joseph Pineda [facility] 11:03:29 CANDY ATTENDANT -[facility]HC CPT-59077 Level 3 Est. Patient Joseph Pineda [facility] 11:03:08 CANDY ATTENDANT -RHC CPT-44368 Level 3 Est. Patient Joseph Pineda [facility] 14:33:31 CDT -[facility] CPT-73257 Level 3 Est. Patient Joseph Pineda [facility] 17:05:02 CANDY ATTENDANT -[facility]HC CPT-33757 Level 3 Est. Patient Joseph Pineda [facility] 17:48:06 CANDY ATTENDANT -RHC CPT-75069 Level 3 Est. Patient Joseph Pineda [facility] 14:59:22 CANDY ATTENDANT -RHC CPT-81608 Level 3 Est. Patient Joseph Pineda [facility] - 21:45:56 CANDY ATTENDANT Jose [facility] CPT-04224 Level 3 Est. Patient Joseph Pineda [facility] 21:29:50 CDT -[facility]HC CPT-68835 Level 3 Est. Patient Joseph Pineda [facility] 12:41:09 CDT -[facility] Procedures Code Procedure Name Date Entry Date Standard Description CPT-18646 Venipuncture Draw Fee 09:19:08 CDT CPT-41438 Lipid - LAB USE ONLY 09:19:07 CDT CPT-JTINJ Asp/Joint Injection 09:26:49 CDT CPT-41363 Chest 2V Frontal and Lat 14:47:43 CDT CPT-JTINJ Asp/Joint Injection 09:51:53 CANDY ATTENDANT CPT-OV Office Visit 17:39:05 CDT CPT-OV Office Visit 15:19:50 CDT CPT-44387 Sono transvag pelvis non OB uterus ovaries cervix 18:04:34 CDT CPT-14395 Venipuncture Draw Fee 08:55:49 CANDY ATTENDANT
--- OUTSIDE RECORDS SUMMARY | 2016-11-20 13:24 | External Medical Summary | Clinical Summary ---
:1965 Author Organization [facility] Address [address] [place] [address] Phone Allergies, Adverse Reactions, Alerts Allergy Name [...] Bulimia nervosa disorder 08/15 08/15 Farooq DO SCABIES ICD-133.0 Inactive Maite Sanchez PhD OTH GENERAL ICD-V70.3 Inactive Maite Sanchez MEDICAL PhD EXAMINATION ADMIN PURPOSES OTHER ABNORMAL ICD-790.29 Inactive Maite Sanchez GLUCOSE PhD ACUTE BRONCHITIS ICD-466.0 Inactive Maite Sanchez PhD ABNORMAL VAGINAL ICD-626.9 Inactive Maite Sanchez BLEEDING PhD Medication List Medication Instructions Start Stop Generic NDC Status Provider Patient Date Date Name Instruction VYVANSE 20 1 tablet LISDEXAMFETAMINE 31032560788 Active Leonard Active MG ORAL daily for 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 METFORMIN 2 tablet METFORMIN HCL 10293362649 Active Joseph Pineda Active HCL 500 MG daily for Farooq DO TB24 blood sugars LASIX 20 2 tablet by FUROSEMIDE 55538559912 Active Joseph Pineda Active MG TAB mouth daily Farooq DO CELEBREX 1 tablet by CELECOXIB 87032497190 Active Joseph Pineda Active 200 MG mouth daily Farooq DO CAPS with meals PREDNISONE 2 tablets 2 PREDNISONE 67441305426 No Joseph Pineda Active 20 MG TAB today, then 0 Longer Farooq DO 1 tablet 1 Active days 2-4 5 / 0 4 / 3 DIFLUCAN 1 tablet by 2 FLUCONAZOLE 21321542642 No Joseph W Active 100 MG TAB mouth daily 0 Longer Farooq DO x 3 days 1 Active 5 / 0 4 / 3 AMARYL 1 1 tablet GLIMEPIRIDE 53972910523 Active Joseph Pineda Active MG ORAL orally Farooq DO TABS twice daily DIFLUCAN 1 tablet by 2 FLUCONAZOLE 98614370308 No Joseph W Active 100 MG mouth every 0 Longer Farooq DO TABS other day 1 Active for 2 doses 5 / 0 1 / 2 3 ZOFRAN 4 1 po q6hr ONDANSETRON HCL 16311710929 Active Bam Active MG TABS PRN Nausea W Luis ONEAL PREDNISONE 2 tabs 2 PREDNISONE 28504886798 No Joseph Pineda Active 20 MG TAB daily for 3 0 Longer Farooq DO days, 1 tab 1 Active daily for 3 4 days, 1/2 / tab daily 1 for 2 days 0 / 2 5 TRAMADOL 1/2 po tid TRAMADOL HCL 76688145372 Active Joseph Pineda Active HCL 50 MG with ES Farooq DO TABS Tylenol prn pain AMOXICILLI 2 po BID x 2 AMOXICILLIN 34303896690 No Maite C Active N 500 MG 10 days 0 Longer Madril CAPS 1 Active PhD 0 / 2 0 LISINOPRIL 1 tablet by 2 LISINOPRIL 66938301158 No Maite C Active 20 MG TABS mouth 0 Longer Madril daily 1 Active PhD 0 / 1 0 POTASSIUM 2 capsule 2 POTASSIUM CHLORIDE 64675466409 No Joseph Pineda Active CHLORIDE by mouth 0 Longer Farooq DO CR 10 MEQ daily 1 Active CPCR 8 2 9 SPIRONOLAC 1 tablet by 2 SPIRONOLACTONE 39995450730 No Joseph Pineda Active TONE 25 MG mouth daily 0 Longer Farooq DO TAB 1 Active 4 / 0 8 / 2 9 METFORMIN 1 tablet 2 METFORMIN HCL 83678655821 No Joseph Pineda Active HCL 500 MG by mouth 0 Longer Farooq DO TABS twice daily 1 Active 4 / 0 8 / 2 9 AMARYL 1 1 tab twice 2 GLIMEPIRIDE 92925084616 No Joseph W Active MG TABS daily 0 Longer Farooq DO 1 Active 4 / 0 8 / 2 9 PHENTERMIN 1 po q am 2 PHENTERMINE HCL 65558754881 No Joseph W Active E HCL 37.5 for wt. 0 Longer Farooq DO MG TABS loss 1 Active 3 / 1 2 / 2 3 PROMETHAZI 1 tab by 2 PROMETHAZINE HCL 89890947779 No Joseph W Active NE HCL 25 mouth every 0 Longer Farooq DO MG TABS 6 hours as 1 Active needed 3 / 0 9 / 0 9 CIPROFLOXA Take one 2 CIPROFLOXACIN HCL 38418668180 No Joseph W Active DELORES HCL (1) tablet 0 Longer Farooq DO 500 MG by mouth 1 Active TABS twice a day 3 / 0 9 / 0 9 ABILIFY 5 one p.o. q. 2 ARIPIPRAZOLE 99461715569 No Joseph W Active MG TABS day 0 Longer Farooq DO 1 Active 3 / 0 9 / 0 9 HYDROCHLOR 2 tabs 2 HYDROCHLOROTHIAZID 98238381635 No Joseph W Active OTHIAZIDE every 0 E Longer Farooq DO 25 MG TABS morning 1 Active 3 / 0 6 / 2 7 ABILIFY 2 1 po q hs 2 ARIPIPRAZOLE 96372297890 No Joseph W Active MG TABS for major 0 Longer Farooq DO depression 1 Active 3 / 0 5 / 0 7 ADIPEX-P 1/2 tab po 2 PHENTERMINE HCL 22865447112 No Casey Active 37.5 MG q am for 0 Longer Altair CAPS weight loss 1 Active PA 3 / 0 5 / 0 1 CIPRO 500 1 tablet by 2 CIPROFLOXACIN HCL 16149696347 No Casey Active MG TAB mouth twice 0 Longer Leonarda daily 1 Active PA 3 / 0 5 / 0 1 NECON 1/35 1 po daily 2 NORETHINDRONE-ETH 94332949247 No Casey Active (28) 1-35 0 ESTRADIOL Longer Leonarda MG-MCG 1 Active PA TABS 3 / 0 5 / 0 1 TRAMADOL 1 po tid 2 TRAMADOL HCL 75180251079 No Casey Active HCL 50 MG with ES 0 Longer Leonarda TABS Tylenol 1 Active PA 3 / 0 5 / 0 1 FLUCONAZOL one p.o. q. 2 FLUCONAZOLE 22781268557 No Casey Active E 100 MG day 2 days 0 Longer Leonarda TABS 1 Active PA 3 / 0 5 / 0 1 POTASSIUM 1 capsule 2 POTASSIUM CHLORIDE 64251628311 No Casey Active CHLORIDE by mouth 0 Longer Altair CR 10 MEQ daily 1 Active PA CPCR 3 / 0 5 / 0 1 IMIPRAMINE Take 6 IMIPRAMINE HCL 35249864896 Active Bam Active HCL 50 MG tablets by W TABS mouth at [place] bedtime DIFLUCAN 1 tablet by 2 FLUCONAZOLE 31504482762 No Joseph W Active 100 MG TAB mouth daily 0 Longer Farooq DO 1 Active 2 / 0 2 / 2 4 METOPROLOL 1/2 tab po METOPROLOL 94459269198 Active Joseph W Active TARTRATE bid TARTRATE Farooq DO 25 MG TABS VERAPAMIL 2 po bid VERAPAMIL HCL 23102497897 Active Joseph W Active HCL CR 120 Farooq DO MG TAB CR PERMETHRIN apply neck 2 PERMETHRIN 78524880834 No Joseph W Active 5 % CREA to toes 0 Longer Farooq DO tonight and 1 Active then rinse 2 off in / morning. 0 repeat at 7 1 days / 2 0 SEROQUEL one p.o. q. 2 QUETIAPINE 26242133454 No Joseph W Active XR 50 MG evening 0 FUMARATE Longer Farooq DO [id number] 1 Active 2 / 0 1 / 2 0 TRAMADOL 1-2 tablets 2 TRAMADOL HCL 27402230658 No Joseph W Active HCL 50 MG every 6-8 0 Longer Farooq DO TABS hours as 1 Active needed for 2 pain / 0 1 / 2 0 ALPRAZOLAM one p.o. ALPRAZOLAM 15265278329 Active Joseph W Active 3 MG q.h.s. Farooq DO [id number] ALPRAZOLAM Take 1 2 ALPRAZOLAM 89068116394 No Joseph W Active XR tablet by 0 [id number] Longer Farooq DO [id number] mouth at 1 Active bedtime 1 / 2 9 DIFLUCAN 1 tablet by 2 FLUCONAZOLE 18864194074 No Joseph W Active 100 MG TAB mouth daily 0 Longer Farooq DO 1 Active 0 / 0 6 AMBIEN 10 1 tab by ZOLPIDEM TARTRATE 02437697922 Active Joseph W Active MG TAB mouth at Farooq DO bedtime as needed for sleep DIFLUCAN 100 1 tablet DIFLUCAN 19760111 FLUCONAZOLE Inactive MG TAB by mouth 100 MG TAB daily ALPRAZOLAM Take 1 ALPRAZOLAM ALPRAZOLAM Inactive XR [id number] tablet by XR [id number] mouth at [id number] bedtime TRAMADOL HCL 1-2 TRAMADOL 752869 TRAMADOL HCL Inactive 50 MG TABS tablets HCL 50 MG every 6-8 TABS hours as needed for pain SEROQUEL XR one p.o. SEROQUEL XR QUETIAPINE Inactive 50 MG q. evening 50 MG FUMARATE [id number] PERMETHRIN 5 apply neck PERMETHRIN 012520 PERMETHRIN Inactive % CREA to toes 5 % CREA tonight and then rinse off in morning. repeat at 7 days DIFLUCAN 100 1 tablet DIFLUCAN 915777 FLUCONAZOLE Inactive MG TAB by mouth 100 MG TAB daily POTASSIUM 1 capsule POTASSIUM POTASSIUM Inactive CHLORIDE CR by mouth CHLORIDE CR CHLORIDE 10 MEQ CPCR daily 10 MEQ CPCR FLUCONAZOLE one p.o. FLUCONAZOLE 19760111 FLUCONAZOLE Inactive 100 MG TABS q. day 2 100 MG TABS days TRAMADOL HCL 1 po tid TRAMADOL 444722 TRAMADOL HCL Inactive 50 MG TABS with ES HCL 50 MG Tylenol TABS NECON 1/35 1 po daily NECON /35 NORETHINDRONE- Inactive (28) 1-35 (28) 1-35 ETH ESTRADIOL MG-MCG TABS MG-MCG TABS CIPRO 500 MG 1 tablet CIPRO 500 601754 CIPROFLOXACIN Inactive TAB by mouth MG TAB HCL twice daily ADIPEX-P 1/2 tab po ADIPEX-P 199125 PHENTERMINE Inactive 37.5 MG CAPS q am for 37.5 MG HCL weight CAPS loss ABILIFY 2 MG 1 po q hs ABILIFY 2 ARIPIPRAZOLE Inactive TABS for major MG TABS depression HYDROCHLOROT 2 tabs HYDROCHLORO 155153 HYDROCHLOROTHI Inactive HIAZIDE 25 every THIAZIDE 25 AZIDE MG TABS morning MG TABS ABILIFY 5 MG one p.o. ABILIFY 5 ARIPIPRAZOLE Inactive TABS q. day MG TABS CIPROFLOXACI Take one CIPROFLOXAC 927954 CIPROFLOXACIN Inactive N HCL 500 MG (1) tablet IN HCL 500 HCL TABS by mouth MG TABS twice a day PROMETHAZINE 1 tab by PROMETHAZIN 312905 PROMETHAZINE Inactive HCL 25 MG mouth E HCL 25 MG HCL TABS every 6 TABS hours as needed PHENTERMINE 1 po q am PHENTERMINE 657911 PHENTERMINE Inactive HCL 37.5 MG for wt. HCL 37.5 MG HCL TABS loss TABS AMARYL 1 MG 1 tab AMARYL 1 MG 740947 GLIMEPIRIDE Inactive TABS twice TABS daily METFORMIN 1 tablet METFORMIN 135223 METFORMIN HCL Inactive HCL 500 MG by mouth HCL 500 MG TABS twice TABS daily SPIRONOLACTO 1 tablet SPIRONOLACT 559005 SPIRONOLACTONE Inactive NE 25 MG TAB by mouth ONE 25 MG daily TAB POTASSIUM 2 capsule POTASSIUM POTASSIUM Inactive CHLORIDE CR by mouth CHLORIDE CR CHLORIDE 10 MEQ CPCR daily 10 MEQ CPCR LISINOPRIL 1 tablet LISINOPRIL 891035 LISINOPRIL Inactive 20 MG TABS by mouth 20 MG TABS daily DIFLUCAN 100 1 tablet DIFLUCAN 204181 FLUCONAZOLE Inactive MG TABS by mouth 100 MG TABS every other day for 2 doses DIFLUCAN 100 1 tablet DIFLUCAN 534987 FLUCONAZOLE Inactive MG TAB by mouth 100 MG TAB daily x 3 days PREDNISONE 2 tablets PREDNISONE 988826 PREDNISONE Inactive 20 MG TAB today, 20 MG TAB then 1 tablet days 2-4 AMOXICILLIN 2 po BID x AMOXICILLIN 634564 AMOXICILLIN Inactive 500 MG CAPS 10 days 500 MG CAPS PREDNISONE 2 tabs PREDNISONE 083998 PREDNISONE Inactive 20 MG TAB daily for [...] Panel - Chemistry sodium, serum 137 mmol/L 734-942 6736/08/29 potassium, serum 4.1 mmol/L 3.5-5.2 chloride, serum 100 mmol/L 98-107 carbon dioxide, venous blood 31.1 mmol/L 21.0-32.0 blood glucose 138 mg/dL 65-110 calcium, serum 9.2 mg/dL 8.5-10.1 urea nitrogen, blood 9 mg/dL 7-18 creatinine, serum 0.80 mg/dL 0.60-1.30 Lab Report: CBC, Comp. Metabolic Panel, HGBA1C - Chemistry sodium, serum 140 mmol/L 560-085 8321/04/13 potassium, serum 3.9 mmol/L 3.5-5.2 chloride, serum [...] 4.3-6.0 Encounters Code Encounter Date Provider Facility CPT-34328 Level 3 Est. Patient Joseph Trivedi [facility] 22:18:20 CDT -[facility] CPT-61663 Level 3 Est. Patient Joseph Trivedi [facility] 16:46:04 CDT -[facility] CPT-24456 Level 3 Est. Patient Joseph Trivedi [facility] 15:39:53 CDT -[facility] CPT-55309 Level 3 Est. Patient Maite Sanchez MD [facility] 13:33:34 CDT -[facility] CPT-18284 Level 3 Est. Patient Joseph Pineda [facility] 11:37:08 CDT -[facility] CPT-67527 Level 3 Est. 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 Patient Joseph Pineda [facility] 18:42:44 CDT CPT-66397 Level 3 Est. Patient Joseph Pineda [facility] 16:25:39 CDT CPT-75266 Level 3 Est. Patient Casey ARCHIBALD [facility] 09:52:45 CDT -[facility] CPT-36926 Level 3 Est. 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 Patient [place] [facility] 14:33:31 CDT -[facility] CPT-84392 Level 3 Est. 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 Patient Joseph Edwin [facility] - 21:45:56 COLD TYPE COMPOSING MACHINE OPERATOR [place] [facility] CPT-68031 Level 3 Est. Patient [facility] 21:29:50 CDT -[facility] CPT-32368 Level 3 Est. 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
--- OUTSIDE RECORDS SUMMARY | 2016-11-20 13:24 | External Medical Summary | Clinical Summary ---
:1965 Author Organization [facility] WorkProducts Address [address] [address] Phone Allergies, Adverse Reactions, Alerts Allergy Name Reaction Description Start Date Severity Status Provider VERSED States jsut about Critical Active Gloria Saavedra WEAVER NEEDLE LOOM killed her NKDA Critical Active Indigo Yokum ELECTRONIC ORGAN TECHNICIAN NKDA Critical No Longer Indigo Yokum ELECTRONIC ORGAN TECHNICIAN Active NKDA Critical Inactive Adrianna Elder [...] 311 Active Indigo Depressive chronic 09/20 Yokum ELECTRONIC ORGAN TECHNICIAN disorder, not elsewhere classified SCABIES 133.0 Resolved Maite Gutierrez Scabies 06/23 Laura ONEAL PhD HYPERTENSION 401.9 Active Joseph Pineda Unspecified 05/24 Farooq DO essential hypertension FATIGUE 780.79 Resolved Indigo Other malaise 05/24 07/02 Yokum ELECTRONIC ORGAN TECHNICIAN and fatigue SLEEP APNEA, 327.23 Active Joseph Pineda Obstructive OBSTRUCTIVE, 06/27 06/27 Farooq DO sleep apnea MILD (adult) (pediatric) OVERWEIGHT 278.02 Inactive Joseph Pineda Overweight 06/28 06/28 Farooq DO Obesity 278.00 Active Indigo Obesity, 06/28 10/18 Yokum ELECTRONIC ORGAN TECHNICIAN unspecified OT GENERAL V70.3 Resolved Maite C Other general MEDICAL Laura ONEAL medical EXAMINATION PhD examination for ADMIN administrative PURPOSES purposes OTHER 790.29 Resolved Maite C Other abnormal ABNORMAL 05/20 Laura ONEAL glucose GLUCOSE PhD ACUTE 466.0 Resolved Maite Gutierrez Acute bronchitis BRONCHITIS 09/02 Laura ONEAL PhD DEPENDENT 782.3 Resolved Indigo Edema EDEMA, LEGS, 10/29 10/18 Yokum ELECTRONIC ORGAN TECHNICIAN BILATERAL HYPOKALEMIA, 276.8 Resolved Indigo Hypopotassemia MILD 10/29 07/02 Yo ELECTRONIC ORGAN TECHNICIAN Diabetes, 250.00 Inactive Joseph Pineda Diabetes Type 2 06/27 06/27 Farooq DO mellitus without mention of complication, type II or unspecified type, not stated as uncontrolled Diabetes 250.02 Resolved Indigo Diabetes mellitus, 06/27 10/18 Yokum ELECTRONIC ORGAN TECHNICIAN mellitus without type II, mention of [...] Resolved Indigo Routine gynecological 12/14 07/02 Yo ELECTRONIC ORGAN TECHNICIAN gynecological examination examination Postmenopausa 627.1 Resolved Indigo Postmenopausal l bleeding 12/14 07/02 Yokum ELECTRONIC ORGAN TECHNICIAN bleeding Screening for V76.51 Resolved Indigo Screening for malignant 12/26 07/02 Yokum ELECTRONIC ORGAN TECHNICIAN malignant neoplasms of neoplasms of colon colon Insomnia, 307.42 Active 2015/0 Indigo 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 ELECTRONIC ORGAN TECHNICIAN disorder of initiating or maintaining sleep Establish V68.89 Resolved Indigo Encounters for care or get 01/16 07/02 Yokum ELECTRONIC ORGAN TECHNICIAN other specified acquainted administrative visit purpose Weakness, 342.90 Resolved Indigo Hemiplegia, left side of 06/20 10/18 Yokum ELECTRONIC ORGAN TECHNICIAN unspecified, body affecting unspecified side TIA 435.9 Active Indigo Unspecified 06/20 07/02 Yokum ELECTRONIC ORGAN TECHNICIAN transient cerebral ischemia Knee pain, 719.46 Active Indigo Pain in joint bilateral 06/20 10/18 Yokum ELECTRONIC ORGAN TECHNICIAN involving lower leg Bronchitis 490 Resolved Indigo Bronchitis, not 07/23 10/18 Yokum ELECTRONIC ORGAN TECHNICIAN specified as acute or chronic Diabetes 357.2 Active Maliheh Polyneuropathy mellitus, 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 y Knee pain, 719.46 Resolved Indigo Pain in joint right 06/20 09/20 Yokum ELECTRONIC ORGAN TECHNICIAN involving lower leg Jesi 112.3 Resolved Indigo Candidiasis of intertrigo 10/09 09/20 Yokum ELECTRONIC ORGAN TECHNICIAN skin and nails Hyperlipidemi 272.4 Active Anne Other and a 12/24 12/24 Neil unspecified RMA hyperlipidemia Incontinence, 788.33 Resolved Indigo Mixed mixed, 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 ELECTRONIC ORGAN TECHNICIAN incontinence urge/stress (female) (male) Female stress 625.6 Active Yury Monaco Stress incontinence 01/03 01/03 Cy patel MD female Vaginal odor 623.8 Resolved Indigo Other specified 05/28 09/20 [facility]okum ELECTRONIC ORGAN TECHNICIAN noninflammatory disorders of vagina Urinary tract 599.0 Resolved Indigo Urinary tract infection 05/28 09/20 Yokum ELECTRONIC ORGAN TECHNICIAN infection, site not specified Urine odor 791.9 Resolved Indigo Other 05/28 09/20 Yokum ELECTRONIC ORGAN TECHNICIAN nonspecific findings on examination of urine Unspecified Resolved Indigo dyspareunia 08/19 09/20 Yokum ELECTRONIC ORGAN TECHNICIAN Depression Resolved Indigo 09/20 Yokum ELECTRONIC ORGAN TECHNICIAN Anxiety Active Indigo Anxiety state, Disorder 08/26 ELECTRONIC ORGAN TECHNICIAN unspecified ABNORMAL VAGINAL ICD-626.9 Inactive Maite C Laura BLEEDING PhD SCABIES ICD-133.0 Inactive Maite C Laura PhD FATIGUE ICD-780.79 Inactive Indigo Yokum ELECTRONIC ORGAN TECHNICIAN OTH GENERAL ICD-V70.3 Inactive Maite C Laura MEDICAL MD PhD EXAMINATION ADMIN PURPOSES OTHER ABNORMAL ICD-790.29 Inactive Maite C Ronyril GLUCOSE PhD ACUTE BRONCHITIS ICD-466.0 Inactive Maite C Laura PhD DEPENDENT EDEMA, ICD-782.3 Inactive Indigo Yokum LEGS, BILATERAL ELECTRONIC ORGAN TECHNICIAN HYPOKALEMIA, MILD ICD-276.8 Inactive Indigo Yokum ELECTRONIC ORGAN TECHNICIAN Diabetes mellitus, ICD-250.02 Inactive Indigo Yokum type II, ELECTRONIC ORGAN TECHNICIAN uncontrolled Sinusitis, ICD-461.1 Inactive Ismael Coyne frontal, acute Amandeep ONEAL Laryngitis, acute ICD-464.00 Inactive Ismael Coyne Amandeep ONEAL Routine ICD-V72.31 Inactive Indigo Yokum gynecological ELECTRONIC ORGAN TECHNICIAN examination Postmenopausal ICD-627.1 Inactive Indigo Yokum 2015 bleeding ELECTRONIC ORGAN TECHNICIAN Screening for ICD-V76.51 Inactive Indigo Yokum 2015 malignant ELECTRONIC ORGAN TECHNICIAN neoplasms of colon Establish care or ICD-V68.89 Inactive Indigo Yokum get acquainted ELECTRONIC ORGAN TECHNICIAN visit Weakness, left ICD-342.90 Inactive Indigo Yokum side of body ELECTRONIC ORGAN TECHNICIAN Bronchitis ICD-490 Inactive Indigo Yokum ELECTRONIC ORGAN TECHNICIAN Knee pain, right ICD-719.46 Inactive Indigo Yokum ELECTRONIC ORGAN TECHNICIAN Jesi intertrigo ICD-112.3 Inactive Indigo Yokum ELECTRONIC ORGAN TECHNICIAN Incontinence, ICD-788.33 Inactive Indigo Yokum 2016 mixed, urge/stress ELECTRONIC ORGAN TECHNICIAN Vaginal odor ICD-623.8 Inactive Indigo Yokum 09/20 ELECTRONIC ORGAN TECHNICIAN Urinary tract ICD-599.0 Inactive Indigo Yokum 09/20 infection ELECTRONIC ORGAN TECHNICIAN Urine odor ICD-791.9 Inactive Indigo Yokum ELECTRONIC ORGAN TECHNICIAN Unspecified Inactive Indigo Yokum dyspareunia ELECTRONIC ORGAN TECHNICIAN Depression Inactive Indigo Yokum ELECTRONIC ORGAN TECHNICIAN Medication List Medication Instructions Start Stop Generic NDC Status Provider Patient Date Date Name Instruction ALPRAZOLAM 3 one p.o. ALPRAZOLAM 28584148949 Active Indigo Active MG [id number] q.h.s. Y[employer]um ELECTRONIC ORGAN TECHNICIAN ABILIFY 10 MG Take one ARIPIPRAZOLE 03210930848 Active Indigo Active ORAL TABS tablet Yokum daily for ELECTRONIC ORGAN TECHNICIAN depression CELEBREX 200 1 tablet 2 CELECOXIB 55041742199 No Indigo Active MG CAPS by mouth 0 Longer Yokum daily with 1 Active ELECTRONIC ORGAN TECHNICIAN meals 7 / 0 4 / 2 4 TROKENDI XR 1 tab by 2 TOPIRAMATE 71688339909 No Indigo Active 100 MG ORAL mouth 0 Longer Yokum [id number] daily 1 Active ELECTRONIC ORGAN TECHNICIAN 7 0 4 VESICARE 10 MG 1 pill by SOLIFENACIN 55054857797 Active J Carlos Enrique Active TABS mouth SUCCINATE [place] daily for MD overactive bladder CIPRO 250 MG 1 tablet 2 CIPROFLOXACIN 42885335854 No Indigo Active TAB by mouth 0 HCL Longer Yokum twice 1 Active ELECTRONIC ORGAN TECHNICIAN daily 7 METFORMIN HCL 2 tablets 2 METFORMIN HCL 69604971210 No Indigo Active 500 MG TB24 by mouth 0 Longer Yokum twice 1 Active ELECTRONIC ORGAN TECHNICIAN daily 2 AMARYL 1 MG 1 tablet 2 GLIMEPIRIDE 11031874914 No Indigo Active ORAL TABS orally 0 Longer Yokum twice 1 Active ELECTRONIC ORGAN TECHNICIAN daily 2 NYSTATIN apply to NYSTATIN 84232715914 Active Indigo Active 235832 UNIT/GM rash TID Y[facility]um CREA PRN ELECTRONIC ORGAN TECHNICIAN METOPROLOL 1 tab po METOPROLOL 73240567851 Active Indigo Active TARTRATE 25 MG bid TARTRATE Yokum TABS ELECTRONIC ORGAN TECHNICIAN AZITHROMYCIN 2 po qd x 2 AZITHROMYCIN 17146296277 No Jillina Active 250 MG TABS 1 day, 0 Longer Frazell then 1 po 1 Active ELECTRONIC ORGAN TECHNICIAN qd x 4 6 days / 0 3 / 2 6 PREDNISONE 20 2 pills 2 PREDNISONE 38121226556 No Jillina Active MG TAB daily x 4 0 Longer [place]ell days 1 Active ELECTRONIC ORGAN TECHNICIAN 6 / 0 3 / 2 5 PIOGLITAZONE take one a PIOGLITAZONE 74507868611 Active Maliheh Active HCL 30 MG ORAL day HCL Ziglari TABS 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 JANUVIA 100 MG 1 tablet 2 SITAGLIPTIN 46509524321 No Indigo Active TABS by mouth 0 PHOSPHATE Longer Yokum daily 1 Active ELECTRONIC ORGAN TECHNICIAN 6 / 0 2 / 1 6 ATORVASTATIN 1 pill by ATORVASTATIN 52000193311 Active Hannah Active CALCIUM 10 MG mouth CALCIUM Neal TABS nightly, ELECTRONIC ORGAN TECHNICIAN for cholestero l ASPIRIN 81 MG 1 po qd ASPIRIN 49888369671 Active Indigo Active ORAL TABS Yokum ELECTRONIC ORGAN TECHNICIAN NITROFURANTOIN One 2 NITROFURANTOIN 50283469767 No Indigo Active MONOHYD MACRO capsule 0 MONOHYD MACRO Longer Yokum 100 MG CAPS BID for 1 Active ELECTRONIC ORGAN TECHNICIAN UTI 6 / 0 2 / 1 3 TRAMADOL HCL 1/2 po tid 2 TRAMADOL HCL 12464792831 No Jillina Active 50 MG TABS with ES 0 Longer Frazell Tylenol 1 Active ELECTRONIC ORGAN TECHNICIAN prn pain 5 / 0 2 VYVANSE 20 MG 1 tablet 2 LISDEXAMFETAMI 09428565667 No Jillina Active ORAL CAPS daily for 0 NE DIMESYLATE Longer Frazell binge 1 Active ELECTRONIC ORGAN TECHNICIAN eating 5 disorder / 0 2 LASIX 20 MG 2 tablet FUROSEMIDE 92716168656 Active Ranulfo Villalpando Active TAB by mouth [place] daily PREDNISONE 20 2 tablets 2 PREDNISONE 74204362299 No Joseph W Active MG TAB today, 0 Longer Farooq DO then 1 1 Active tablet 5 days 2-4 / 0 3 DIFLUCAN 100 1 tablet 2 FLUCONAZOLE 01539543237 No Joseph W Active MG TAB by mouth 0 Longer Farooq DO daily x 3 1 Active days 5 / 0 1 3 DIFLUCAN 100 1 tablet 2 FLUCONAZOLE 87289176238 No Joseph W Active MG TABS by mouth 0 Longer Farooq DO every 1 Active other day 5 for 2 / doses 0 1 / 2 3 ZOFRAN 4 MG 1 po q6hr ONDANSETRON 85836687695 Active Joseph W Active TABS PRN Nausea HCL Farooq DO PREDNISONE 20 2 tabs 2 PREDNISONE 52412522828 No Joseph W Active MG TAB daily for 0 Longer Farooq DO 3 days, 1 1 Active tab daily 4 for 3 / days, 1/2 1 tab daily 0 for 2 days / 2 5 AMOXICILLIN 2 po BID x 2 AMOXICILLIN 39881162955 No Maite C Active 500 MG CAPS 10 days 0 Longer Madril 1 Active PhD 4 / 1 0 / 2 0 LISINOPRIL 20 1 tablet 2 LISINOPRIL 69866628383 No Maite C Active MG TABS by mouth 0 Longer Madril daily 1 Active PhD 4 / 0 / 1 0 POTASSIUM 2 capsule 2 POTASSIUM 64606983383 No Joseph W Active CHLORIDE CR 10 by mouth 0 CHLORIDE Longer Farooq DO MEQ CPCR daily 1 Active 4 / 0 8 / 2 9 SPIRONOLACTONE 1 tablet 2 SPIRONOLACTONE 73536453156 No Joseph W Active 25 MG TAB by mouth 0 Longer Farooq DO daily 1 Active 4 / 0 8 / 2 9 METFORMIN HCL 1 tablet 2 METFORMIN HCL 63730030396 No Joseph W Active 500 MG TABS by mouth 0 Longer Farooq DO twice 1 Active daily 4 / 0 8 / 2 9 AMARYL 1 MG 1 tab 2 GLIMEPIRIDE 81983283120 No Joseph W Active TABS twice 0 Longer Farooq DO daily 1 Active 4 / 0 8 / 2 9 PHENTERMINE 1 po q am 2 PHENTERMINE 74967970494 No Joseph W Active HCL 37.5 MG for wt. 0 HCL Longer Farooq DO TABS loss 1 Active 3 / 1 2 / 2 3 PROMETHAZINE 1 tab by 2 PROMETHAZINE 70689627044 No Joseph W Active HCL 25 MG TABS mouth 0 HCL Longer Farooq DO every 6 1 Active hours as 3 needed / 0 9 / 0 9 CIPROFLOXACIN Take one 2 CIPROFLOXACIN 06559304559 No Joseph W Active HCL 500 MG (1) tablet 0 HCL Longer Farooq DO TABS by mouth 1 Active twice a 3 day / 0 9 / 0 9 ABILIFY 5 MG one p.o. 2 ARIPIPRAZOLE 68221446238 No Joseph W Active TABS q. day 0 Longer Farooq DO 1 Active 3 / 0 9 / 0 9 HYDROCHLOROTHI 2 tabs 2 HYDROCHLOROTHI 85057703177 No Joseph W Active AZIDE 25 MG every 0 AZIDE Longer Farooq DO TABS morning 1 Active 3 / 0 6 / 2 7 ABILIFY 2 MG 1 po q hs 2 ARIPIPRAZOLE 87306935316 No Joseph W Active TABS for major 0 Longer Farooq DO depression 1 Active 3 / 0 5 / 0 7 ADIPEX-P 37.5 1/2 tab po 2 PHENTERMINE 50296272252 No Casey Active MG CAPS q am for 0 HCL Longer weight 1 Active PA loss 3 / 0 5 / 0 1 CIPRO 500 MG 1 tablet 2 CIPROFLOXACIN 67179403286 No Casey Active TAB by mouth 0 HCL Longer Leonarda twice 1 Active PA daily 3 / 0 5 / 0 1 NECON 1 po daily 2 NORETHINDRONE- 57661826093 No Casey Active () 1-35 0 ETH ESTRADIOL Longer MG-MCG TABS 1 Active PA 3 / 0 5 / 0 1 TRAMADOL HCL 1 po tid 2 TRAMADOL HCL 76465018911 No Casey Active 50 MG TABS with ES 0 Longer Tylenol 1 Active PA 3 / 0 5 / 0 1 FLUCONAZOLE one p.o. 2 FLUCONAZOLE 08217674438 No Casey Active 100 MG TABS q. day 2 0 Longer days 1 Active PA 3 / 0 5 / 0 1 POTASSIUM 1 capsule 2 POTASSIUM 74544894527 No Casey Active CHLORIDE CR 10 by mouth 0 CHLORIDE Longer MEQ CPCR daily 1 Active PA 3 / 0 5 / 0 1 IMIPRAMINE HCL Take 6 IMIPRAMINE HCL 82471714133 Active Indigo Active 50 MG TABS tablets by Yokum mouth at ELECTRONIC ORGAN TECHNICIAN bedtime DIFLUCAN 100 1 tablet 2 FLUCONAZOLE 90322160240 No Joseph W Active MG TAB by mouth 0 Longer Farooq DO daily 1 Active 2 / 0 2 / 2 4 VERAPAMIL HCL 2 po bid VERAPAMIL HCL 19730988343 Active Indigo Active CR 120 MG TAB Yokum CR ELECTRONIC ORGAN TECHNICIAN PERMETHRIN 5 % apply neck 2 PERMETHRIN 21330757205 No Joseph W Active CREA to toes 0 Longer Farooq DO tonight 1 Active and then 2 rinse off / in 0 morning. 1 repeat at / 7 days 2 0 SEROQUEL XR 50 one p.o. 2 QUETIAPINE 55370025832 No Joseph W Active MG [id number] q. evening 0 FUMARATE Longer Farooq DO 1 Active 2 / 0 1 / 2 0 TRAMADOL HCL 1-2 2 TRAMADOL HCL 52129609447 No Joseph W Active 50 MG TABS tablets 0 Longer Farooq DO every 6-8 1 Active hours as 2 needed for / pain 0 1 / 2 0 ALPRAZOLAM XR Take 1 2 ALPRAZOLAM 15928159309 No Joseph W Active [id number] tablet by 0 [id number] Longer Farooq DO mouth at 1 Active bedtime 1 / 2 9 DIFLUCAN 100 1 tablet 2 FLUCONAZOLE 80404132090 No Joseph W Active MG TAB by mouth 0 Longer Farooq DO daily 1 Active 0 / 0 6 AMBIEN 10 MG 1 tab by ZOLPIDEM 29491096887 Active Indigo Active TAB mouth at TARTRATE Yokum bedtime as ELECTRONIC ORGAN TECHNICIAN needed for sleep DIFLUCAN 100 1 tablet DIFLUCAN 936170 FLUCONAZOLE Inactive MG TAB by mouth 100 MG TAB daily ALPRAZOLAM Take 1 ALPRAZOLAM ALPRAZOLAM Inactive XR [id number] tablet by XR [id number] mouth at [id number] bedtime TRAMADOL HCL 1-2 TRAMADOL 883810 TRAMADOL HCL Inactive 50 MG TABS tablets HCL 50 MG every 6-8 TABS hours as needed for pain SEROQUEL XR one p.o. SEROQUEL XR QUETIAPINE Inactive 50 MG q. 50 MG FUMARATE [id number] evening [id number] PERMETHRIN 5 apply PERMETHRIN 897188 PERMETHRIN Inactive % CREA neck to 5 [...] days TRAMADOL HCL 1 po tid TRAMADOL 851411 TRAMADOL HCL Inactive 50 MG TABS with ES HCL 50 MG Tylenol TABS NECON 35 1 po NECON NORETHINDRONE- Inactive (28) 1-35 daily (28) 1-35 ETH ESTRADIOL MG-MCG TABS MG-MCG TABS CIPRO 500 MG 1 tablet CIPRO 500 602669 CIPROFLOXACIN Inactive TAB by mouth MG TAB HCL twice daily ADIPEX-P 1/2 tab ADIPEX-P 012285 PHENTERMINE Inactive 37.5 MG CAPS po q am 37.5 MG HCL for CAPS weight loss ABILIFY 2 MG 1 po q hs ABILIFY 2 753256 ARIPIPRAZOLE Inactive TABS for major MG TABS depressio n HYDROCHLOROT 2 tabs HYDROCHLORO 717886 HYDROCHLOROTHI Inactive HIAZIDE 25 every THIAZIDE 25 AZIDE MG TABS morning MG TABS ABILIFY 5 MG one p.o. ABILIFY 5 535366 ARIPIPRAZOLE Inactive TABS q. day MG TABS CIPROFLOXACI Take one CIPROFLOXAC 006883 CIPROFLOXACIN Inactive N HCL 500 MG (1) IN HCL 500 HCL TABS tablet by MG TABS mouth twice a day PROMETHAZINE 1 tab by PROMETHAZIN 498542 PROMETHAZINE Inactive HCL 25 MG mouth E HCL 25 MG HCL TABS every 6 TABS hours as needed PHENTERMINE 1 po q am PHENTERMINE 161437 PHENTERMINE Inactive HCL 37.5 MG for wt. HCL 37.5 MG HCL TABS loss TABS AMARYL 1 MG 1 tab AMARYL 1 MG 685586 GLIMEPIRIDE Inactive TABS twice TABS daily METFORMIN 1 tablet METFORMIN 302000 METFORMIN HCL Inactive HCL 500 MG by mouth HCL 500 MG TABS twice TABS daily SPIRONOLACTO 1 tablet SPIRONOLACT 072699 SPIRONOLACTONE Inactive NE 25 MG TAB by mouth ONE 25 MG daily TAB POTASSIUM 2 capsule POTASSIUM POTASSIUM Inactive CHLORIDE CR by mouth CHLORIDE CR CHLORIDE 10 MEQ CPCR daily 10 MEQ CPCR LISINOPRIL 1 tablet LISINOPRIL 423943 LISINOPRIL Inactive 20 MG TABS by mouth 20 MG TABS daily DIFLUCAN 100 1 tablet DIFLUCAN 625470 FLUCONAZOLE Inactive MG TABS by mouth 100 MG TABS every other day for 2 doses DIFLUCAN 100 1 tablet DIFLUCAN 461324 FLUCONAZOLE Inactive MG TAB by mouth 100 MG TAB daily x 3 days PREDNISONE 2 tablets PREDNISONE 478566 PREDNISONE Inactive 20 MG TAB today, 20 MG TAB then 1 tablet days 2-4 VYVANSE 20 1 tablet VYVANSE 20 LISDEXAMFETAMI Inactive MG ORAL CAPS daily for MG ORAL NE DIMESYLATE binge CAPS eating disorder TRAMADOL HCL 1/2 po TRAMADOL 387531 TRAMADOL HCL Inactive 50 MG TABS tid with HCL 50 MG ES TABS Tylenol prn pain JANUVIA 100 1 tablet JANUVIA 100 SITAGLIPTIN Inactive MG TABS by mouth MG TABS PHOSPHATE daily AMARYL 1 MG 1 tablet AMARYL 1 MG 274872 GLIMEPIRIDE Inactive ORAL TABS orally ORAL TABS twice daily METFORMIN 2 tablets METFORMIN METFORMIN HCL Inactive HCL 500 MG by mouth HCL 500 MG TB24 twice TB24 daily TROKENDI XR 1 tab by TROKENDI XR TOPIRAMATE Inactive 100 MG ORAL mouth 100 MG ORAL [id number] daily [id number] CELEBREX 200 1 tablet CELEBREX 456917 CELECOXIB Inactive MG CAPS by mouth 200 MG CAPS daily with meals AMOXICILLIN 2 po BID AMOXICILLIN 541537 AMOXICILLIN Inactive 500 MG CAPS x 10 days 500 MG CAPS PREDNISONE 2 tabs PREDNISONE 202472 PREDNISONE Inactive 20 MG TAB daily for 20 MG TAB 3 days, 1 tab daily for 3 days, 1/2 tab daily for 2 days NITROFURANTO One NITROFURANT 8923879 NITROFURANTOIN Inactive IN MONOHYD capsule OIN MONOHYD MONOHYD MACRO MACRO 100 MG BID for MACRO 100 CAPS UTI MG CAPS PREDNISONE 2 pills PREDNISONE 780055 PREDNISONE Inactive 20 MG TAB daily x 4 20 MG TAB days AZITHROMYCIN 2 po qd x AZITHROMYCI 3365622 AZITHROMYCIN Inactive 250 MG TABS 1 day, N 250 MG then 1 po TABS qd x 4 days CIPRO 250 MG 1 tablet CIPRO 250 581327 CIPROFLOXACIN Inactive TAB by mouth MG TAB [...] HGBA1C - Chemistry sodium, serum 140 mmol/L 815-704 4688/06/03 potassium, serum 3.9 mmol/L 3.5-5.2 chloride, serum 105 mmol/L 98-107 carbon dioxide, venous blood 29.4 mmol/L 21.0-32.0 blood glucose 124 mg/dL 65-110 calcium, serum 8.9 mg/dL 8.5-10.1 urea nitrogen, blood 14 mg/dL 7-18 creatinine, serum 0.88 mg/dL 0.55-1.30 hemoglobin A1C, blood, as % of total hemoglobin 5.7 % 4.3-6.0 Lab Report: Chlamydia/GC APTIMA/[id number] - Lab chlamydia DNA probe NOT DETECTED NOT DETECTED Lab Report: Chlamydia/GC APTIMA/[id number] - Microbiology Neisseria gonorrhoeae DNA probe NOT DETECTED NOT DETECTED Lab Report: Lipid Panel - Chemistry cholesterol, serum 157 mg/dL 664-525 8977/08/22 triglyceride, serum, fasting 215 mg/dL 30-200 HDL [...] mg/dL Encounters Code Encounter Date Provider Facility CPT-16651 Level 4 Est. Patient Indigo Carlie [facility] - 16:58:20 CDT [place] CPT-99251 Level 3 Est. Patient Yury Benoit MD [facility] 17:20:07 CDT CPT-81417 Level 4 Est. Patient Indigomikayla Sexton ELECTRONIC ORGAN TECHNICIAN [facility] - 17:02:40 CNC OPERATOR [place] CPT-28621 Level 4 New Patient Yury Benoit MD [facility] 15:17:12 CDT CPT-84777 Level 3 Est. [facility] 13[facility]37:[facility] [place] CPT-00680 Level 4 Est. [facility] 10:01:06 CDT [place] CPT-92937 Level 3 Est. Patient [facility] 08:58:07 CDT 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 CPT-57134 Level 3 Est. Patient Faby Marino [facility] 14:40:56 CDT ELECTRONIC ORGAN TECHNICIAN CPT-52924 Level 4 Est. Patient [facility] 17:29:53 CNC OPERATOR 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 CPT-30174 Level 4 Est. Patient [facility] 09:51:54 CNC OPERATOR CPT-14127 Level 3 Est. Patient [facility] 18:59:38 CDT CPT-01186 Level 3 Est. Patient Joseph Pineda [facility] 14:42:12 CDT -[facility] CPT-62298 Level 3 Est. Patient Joseph Pineda [facility] 22:18:20 CDT -[facility] CPT-50464 Level 3 Est. Patient Joseph Pineda [facility] 16:46:04 CDT -[facility]HC CPT-42883 Level 3 Est. Patient Joseph Pineda [facility] 15:39:53 CDT -RHC CPT-76240 Level 3 Est. Patient Maite Sanchez MD PhD [facility] 13:33:34 CDT -[facility]HC CPT-83907 Level 3 Est. Patient Joseph Pineda [facility] 11:37:08 CDT -RHC CPT-64886 Level 3 Est. Patient Joseph Pineda [facility] 17:13:29 CNC OPERATOR -RHC CPT-70304 Level 3 Est. Patient Joseph Trivedi [facility] 18:42:44 CDT CPT-53145 Level 3 Est. Patient Joseph Trivedi [facility] 16:25:39 CDT CPT-16952 Level 3 Est. Patient Casey Brower [facility] 09:52:45 CDT -RHC CPT-21123 Level 3 Est. Patient Joseph Trivedi [facility] 11:03:29 CNC OPERATOR -RHC CPT-05386 Level 3 Est. Patient Joseph Pineda [facility] 11:03:08 CNC OPERATOR -RHC CPT-60607 Level 3 Est. Patient Joseph Pineda [facility] 14:33:31 CDT -RHC CPT-44305 Level 3 Est. Patient Joseph Pineda [facility] 17:05:02 CNC OPERATOR -RHC CPT-93324 Level 3 Est. Patient Joseph Pineda [facility] 17:48:06 CNC OPERATOR -RHC CPT-67109 Level 3 Est. Patient Joseph Pineda [facility] 14:59:22 CNC OPERATOR -RHC CPT-95950 Level 3 Est. Patient Joseph Pineda [facility] - 21:45:56 CNC OPERATOR [place] [facility] CPT-75006 Level 3 Est. Patient Joseph Pineda [facility] 21:29:50 CDT -RHC CPT-72271 Level 3 Est. Patient Joseph Pineda [facility] 12:41:09 CDT -RHC Procedures Code Procedure Name Date Entry Date Standard Description CPT-21138 Wet Mount - LAB USE ONLY 12:39:03 CNC OPERATOR CPT-14066 Vaginal Culture - LAB USE ONLY 12:39:03 CNC OPERATOR CPT-61382 Urine Culture - LAB USE ONLY 11:52:44 CNC OPERATOR CPT-30855 UA w micro - LAB USE ONLY 11:52:44 CNC OPERATOR CPT-76245 Postop F/U Visit 12:08:35 CDT CPT-40852 Postop F/U Visit 18:20:10 CDT CPT-A4351 [place] Female Cath 09:37:10 CDT CPT-34712 Urine Dip (Floor Use Only) 15:17:13 CDT CPT-93264 Dil F ureth int 15:17:13 CDT CPT-23409 Venipuncture Draw Fee 09:19:08 CDT CPT-28994 Lipid - LAB USE ONLY 09:19:07 CDT CPT-JTINJ Asp/Joint Injection 09:26:49 CDT CPT-32021 Chest 2V Frontal and Lat 14:47:43 CDT CPT-JTINJ Asp/Joint Injection 09:51:53 CNC OPERATOR CPT-OV Office Visit 17:39:05 CDT CPT-OV Office Visit 15:19:50 CDT CPT-40325 Sono transvag pelvis non OB uterus ovaries cervix 18:04:34 CDT CPT-60564 Venipuncture Draw Fee 08:55:49 CNC OPERATOR
--- OUTSIDE RECORDS SUMMARY | 2016-11-20 13:25 | External Medical Summary ---
:1965 Author Organization [facility] Care Team Providers Name Role Phone ARELIS ALEJANDRO INDIGO Primary Care Provider [phone] INDIGO SEXTON APRN Primary Care Provider [phone] Summary purpose TRANSITION OF CARE AUTO GENERATION Chief Complaint and Reason for Visit Admit Diagnosis 1 TRANSIET LEFT SIDE ED WEAKNESS MIGRAINE Admit Diagnosis 2 HEADACHE Problem list No authorized problems tracked for continuity of care are available for this visit. Encounters The following conditions tracked for encounter diagnoses were recorded for this visit: Finding or Diagnosis Status Certainty Chronicity Onset *HEADACHE Active *MALAISE AND FATIGUE Active Medications Discharge Medications Status Medication Directions Current alprazolam ER 3 mg 24 hr Tab 3 milligram (s) oral Bedtime daily anxiety Current Ambien 10 mg Tab 10 milligram (s) oral Bedtime daily sleep Current glyburide oral 4 milligram (s) oral Twice a day DM Current imipramine 50 mg tablet 300 milligram (s) oral Bedtime daily depression Current Imitrex 50 mg tablet 1, may repeat after 2 hours oral oral Every Day As Needed Current Lasix 40 mg tablet 1 tab(s) oral Daily swelling in feet Current metformin 1,000 mg tablet 1000 milligram (s) oral Every Morning DM Current metoprolol tartrate 25 mg tablet 12.5 milligram (s) oral Twice a day HTN Current verapamil ER (SR) 120 mg 240 milligram (s) oral Twice a day tablet,extended release HTN Allergies, adverse reactions, alerts Allergen Category Ingredient Status Reaction Severity Onset No known No known No known Confirmed or allergies allergies allergies Verified Immunizations No immunizations recorded for this patient visit Relevant diagnostic tests and/or laboratory data RESULTS Routine Urinalysis [id number]:45:00 Result Normal Range Units Color YELLOW Clarity Clear Specific [place] 1.020 1.003-1.035 pH 5.5 4.5-8.0 Glucose NEGATIVE Bilirubin NEGATIVE Ketones NEGATIVE Protein NEGATIVE Urobilinogen 0.2 0-0.2 E.U./dL Nitrites NEGATIVE Blood NEGATIVE Leukocytes TRACE WBCs 5-10 RBCs 0-5 Squamous Epithelial 1+ Bacteria 4+ Chemistry :34:00 Result Normal Range Units Sodium 139 134-145 mEq/l Potassium 3.6 3.5-5.1 mEq/l Chloride 100 98-107 mEq/l CO2 26.9 22-28 mEq/l Glucose H 150 70-105 mg/dl BUN 17 7-18 mg/dl Creatinine 0.97 0.6-1.0 mg/dl Calcium 9.1 8.4-10.2 mg/dl TP - Total Protein 7.4 6.0-8.3 g/dl Albumin 4.0 3.5-5 g/dl Bilirubin - Total 0.4 0.1-1.0 mg/dl AST 29 10-42 IU/L ALT 56 12-65 IU/L ALP H 116 25-72 IU/L Osmolality 281.9 280-300 mOsm/L Albumin/Globulin Ratio 1.2 0-8 Anion GAP 12.1 8-16 BUN/Creatinine Ratio 17.5 10-20 Estimated GFR 61 >=60 mL/min/1.7 Lactic Acid 2.0 0.4-2.0 mmol/L Hematology :34:00 Result Normal Range Units WBC 6.0 4.8-10.8 103/uL RBC 4.2 4.2-5.4 106/uL HGB 13.0 12.0-16.0 g/dl HCT 37.7 36.9-47.0 % MCV 88.9 81-99 FL MCH 30.7 27-31 pg MCHC 34.5 33-37 g/dl RDW 12.7 11.5-15.5 % PLT 189 130-400 103/uL MPV 9.8 7.3-10.4 FL Neutro % 51.1 40-70 % Lymph % 36.3 20-40 % [place] % 8.4 0-10.0 % Eos % 3.4 0-7.0 % Baso % 0.3 0-2 % Neutro # 3.1 1.5-7.5 103/uL Lymph # 2.2 0.9-4.0 103/uL [place] # 0.5 0-0.8 103/uL Eos # 0.2 0-0.6 103/uL Baso # 0.0 0-0.1 103/uL Body Fluid 87-60-282960:45:00 Result Normal Range Units pH 5.5 4.5-8.0 Radiology Results [id number]:05:00 CT HEAD W/O CONT PACs Image DATE OF EXAM: 2015 [id number] HEAD WO CONTRAST : RADIOLOGY REPORT DATE OF SERVICE: 06/06/15 HISTORY: Patient has hypertension and headache. CT HEAD WITHOUT CONTRAST 2020 HOURS Axial images were obtained from base of skull to vertex. No intracranial hemorrhage is seen. There is no evidence of infarct. Ventricular system is normal. Visualized sinuses, orbits and bony structures are normal. IMPRESSION: Negative study of the brain. Casey Carter DO MW/wv 06/07/2015 06:55:00 / 06/07/2015 08:23:39 cc:Indigo Sexton APRN This document has been electronically Signed by: On: TRANSIET LEFT SIDE ED WEAKNESS HEADACHE [id number]:34:00 Result Normal Range Units MPV 9.8 7.3-10.4 FL History of procedures No procedures recorded for this patient visit. Functional status Functional Status Finding Observation Time Hearing Prob Loc none 77-02-975600:05 Vision Problems yes :05 Vision Correct Dev glasses 90-58-925370:05 Ambulation Asst Dev none 03-02-440312:05 Range of Motion full 22-18-383056:00 Muscle Strength RUE 5 ROM full resist 20-68-320548:00 Muscle Strength RLE 5 ROM full resist 47-12-335834:00 Muscle Strength LUE 5 ROM full resist 93-54-986193:00 Muscle Strength LLE 5 ROM full resist 74-26-849511:00 Transfers assist x 1 10-68-990979:00 Ambulation in room :00 Balance steady 24-09-977618:00 Bathing Assistance none :05 Eating Assistance none :05 Dressing Assistance none :05 Toileting Assistance none :05 Transfer Assistance none :05 Decline Slf Care/Mob no :05 Phys Cond Stable yes 05-58-409792:05 Nutrition normal :00 Diet regular 99-58-536269:00 Oral Cavity moist and intact :00 Teeth missing (specify) 48-73-310907:00 Dental Hygiene good 26-67-046296:00 Abdomen Appearance obese 89-31-963817:00 Abdomen soft 30-65-107873:00 Bowel Sounds present :00 NG Tube no :00 Feeding Tube none :00 Buck no 38-56-968285:00 Cont Bladder Irr no :00 Ostomy no :00 Stool normal :00 Urination normal :00 Quality sym/unlabored 61-90-823036:00 Cough absent :00 Secretions no 07-69-021153:00 Breath Sounds RUL clear :00 Breath Sounds RML clear :00 Breath Sounds RLL clear 14-41-133205:00 Breath Sounds ADE clear 23-81-752479:00 Breath Sounds LLL clear 01-74-762763:00 Airway natural 11-44-604658:00 Chest Tube no 27-46-490253:00 Oxygen no 45-74-026977:00 C-PAP no 60-74-242408:00 BI-PAP no 01-85-079538:00 Temp >100.4 no :00 Temp <96.8 no 26-41-519118:00 Chills with rigors no 38-19-209986:00 HR > 90bpm yes 88-89-288414:00 Respirations > 20 no 41-35-630647:00 Systolic <90 no 74-79-095826:00 headache stiff neck no 56-68-202116:00 WBC > 70431 no 92-30-794618:00 WBC < 4000 no 02-37-504657:00 IV Site Location L FA 92-61-391468:50 IV Type peripheral 84-23-783886:50 IV Site Information discontinued :50 IV Site Start Attmpt 1 times 59-94-756467:12 IV Site Mynor 20 :00 IV Site Appearance WNL :00 IV Site Color clear :00 IV Site Patent yes :00 Dressing Type occlusive :00 Nursing Note Pt escorted off unit per w/c to POV by this RN in good condition withbelongings :00 in hand. Cognitive Status Finding Observation Time Oriented To Date 5 Yes :[address] 5 Yes :05 Name 3 Objects 3 Yes :05 Name Object in Rm 2 Yes :05 Recall 3 Objects 3 Yes :05 Repeats a Phrase 1 Yes : Follows Verbal Direc 3 Yes : Follows Written Dire 1 Yes :05 Write a Sentance 1 Yes :05 Draw an Object 1 Yes :05 Mini Mental Total 25 points :05 Less than 20 Phys not applicable :05 Learning Ability comprehends well :24 Neurological no 58-51-028387:24 Psychological no :24 Physical no 32-80-118586:24 Hearing no 05-65-684692:24 Gravity Meter Operator Needed no :24 Sign Language no :24 Emotional yes :24 Vision yes :24 [place] no :24 Financial no :24 Vital signs Type Value Date Respiration Rate 18breaths per minute :22 Pulse 93beats per minute :22 Oxygen Saturation 94% :22 BP Systolic 134mmHg :22 BP Diastolic 71mmHg :22 Temperature 97.2F :22 Height 62inches :05 Weight 244.0LB :05 Social history Type Value Smoking Status CURRENT EVERY DAY SMOKER Treatment Plan No treatment plan text is available for this visit. Hospital discharge instructions Discharge Date/Time 06/07/2015 10:00 Accompanied By desire Hernandez spouse/signif other Dismissal Condition good Disposition on DC home Valuables no Valuable Type jewelry (describe) Comment: mckeon watch and bracelet DC Inst/Educ Give yes Exit Care Educ Given yes Med/Side Effects Rev yes DC Med Rec Rev yes Immun Indicated no PNE Vac 2012 Flu Vac unknown Comment: pt states not current Tetanus Vac unknown Diet Explained yes Follow up appt appt made (specify) Follow Up Appt D/T 06/20/2015 4524
--- OUTSIDE RECORDS SUMMARY | 2016-11-20 13:25 | External Medical Summary | Clinical Summary ---
:1965 Author Organization [facility] [employer] Address [address] [address] Phone Allergies, Adverse Reactions, Alerts Allergy Name Reaction Description Start Date Severity Status Provider NKDA Critical Active Indigomikayla Jordanum FILM MAKER NKDA Critical No Longer Indigo Yokum FILM MAKER Active NKDA Critical Inactive Adrianna Elder Conditions [...] Resolved Indigo Other malaise 05/24 07/02 Yokum FILM MAKER and fatigue SLEEP APNEA, 327.23 Active Joseph Pineda Obstructive OBSTRUCTIVE, 06/27 06/27 Farooq DO sleep apnea MILD (adult) (pediatric) OVERWEIGHT 278.02 Inactive Joseph Pineda Overweight 06/28 06/28 Farooq DO Obesity 278.00 Active Indigo Obesity, 06/28 10/18 Yokum FILM MAKER unspecified OTH GENERAL V70.3 Resolved Maite Gutierrez Other general MEDICAL Laura ONEAL medical EXAMINATION PhD examination for ADMIN PURPOSES administrative purposes OTHER ABNORMAL 790.29 Resolved Maite C Other abnormal GLUCOSE 05/20 Laura ONEAL glucose PhD ACUTE 466.0 Resolved Maite C Acute BRONCHITIS 09/02 Laura ONEAL bronchitis PhD DEPENDENT 782.3 Resolved Indigo Edema EDEMA, LEGS, 10/29 10/18 Yokum FILM MAKER BILATERAL HYPOKALEMIA, 276.8 Resolved Indigo Hypopotassemia MILD 10/29 07/02 Youm FILM MAKER Diabetes, Type 250.00 Inactive Joseph Pineda Diabetes 2 06/27 06/27 Farooq DO mellitus without mention of complication, type II or unspecified type, not stated as uncontrolled Diabetes 250.02 Resolved Indigo Diabetes mellitus, type 06/27 FILM MAKER mellitus II, without mention uncontrolled of complication, [...] Resolved Indigo Routine gynecological 12/14 07/02 Yo FILM MAKER gynecological examination examination Postmenopausal 627.1 Resolved Indigo Postmenopausal bleeding 12/14 FILM MAKER bleeding Screening for V76.51 Resolved Indigo Screening for malignant 12/26 07/02 Yokum FILM MAKER malignant neoplasms of neoplasms of colon colon Insomnia, 307.42 Active Indigo 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 MAKER disorder of initiating or maintaining sleep Establish care V68.89 Resolved Indigo Encounters for or get 01/16 07/02 Yo FILM MAKER other specified acquainted administrative visit purpose Weakness, left 342.90 Resolved Indigo Hemiplegia, side of body 06/20 10/18 Yokum FILM MAKER unspecified, affecting unspecified side TIA 435.9 Active Indigo Unspecified 06/20 07/02 Yokum FILM MAKER transient cerebral ischemia Knee pain, 719.46 Active Indigo Pain in joint bilateral 06/20 10/18 Yokum FILM MAKER involving lower leg Bronchitis 490 Resolved Indigo Bronchitis, not 07/23 10/18 Yokum FILM MAKER specified as acute or chronic Diabetes 357.2 Active Maliheh Polyneuropathy mellitus, 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[employer] DAT[employer]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y Knee pain, 719.46 Active Indigo Pain in joint right 06/20 10/18 Yokum FILM MAKER involving lower leg Jesi 112.3 Active Indigo Candidiasis of intertrigo 10/09 10/18 Yokum FILM MAKER skin and nails Hyperlipidemia 272.4 Active Anne Other and 12/24 12/24 Enil unspecified RMA hyperlipidemia Incontinence, 788.33 Active Indigo Mixed mixed, 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 FILM MAKER incontinence urge/stress (female) (male) Female stress 625.6 Active Yury AnthonyCarlos Enrique Stress incontinence 01/03 01/03 Cy patel MD female ABNORMAL VAGINAL ICD-626.9 Inactive Maite Sanchez BLEEDING PhD SCABIES ICD-133.0 Inactive Maite Sanchez PhD FATIGUE ICD-780.79 Inactive Indigo Yokum FILM MAKER OTH GENERAL ICD-V70.3 Inactive Maite Sanchez MEDICAL PhD EXAMINATION ADMIN PURPOSES OTHER ABNORMAL ICD-790.29 Inactive Maite Sanchez GLUCOSE PhD ACUTE BRONCHITIS ICD-466.0 Inactive Maite Matt Sanchez PhD DEPENDENT EDEMA, ICD-782.3 Inactive Indigo Yokum LEGS, BILATERAL FILM MAKER HYPOKALEMIA, MILD ICD-276.8 Inactive Indigo Yokum FILM MAKER Diabetes mellitus, ICD-250.02 Inactive Indigo Yokum type II, FILM MAKER uncontrolled Sinusitis, ICD-461.1 Inactive Ismael Coyne frontal, acute Amandeep ONEAL Laryngitis, acute ICD-464.00 Inactive Ismael Coyne Amandeep ONEAL Routine ICD-V72.31 Inactive Indigo Yokum gynecological FILM MAKER examination Postmenopausal ICD-627.1 Inactive Indigo Yokum 2015 bleeding FILM MAKER Screening for ICD-V76.51 Inactive Indigo Yokum 2015 malignant FILM MAKER neoplasms of colon Establish care or ICD-V68.89 Inactive Inidgo Yokum get acquainted FILM MAKER visit Weakness, left ICD-342.90 Inactive Indigo Yokum side of body FILM MAKER Bronchitis ICD-490 Inactive Indigo Yokum FILM MAKER Medication List Medication Instructions Start Stop Generic NDC Status Provider Patient Date Date Name Instruction METFORMIN 2 tablets METFORMIN 65072308859 No Indigo Active HCL 500 MG by mouth HCL Longer Yokum TB24 twice Active FILM MAKER daily AMARYL 1 MG 1 tablet GLIMEPIRID 73772612694 No Indigo Active ORAL TABS orally E Longer Yokum twice Active FILM MAKER daily NYSTATIN apply to NYSTATIN 82332916619 Active Indigo Active 414148 rash TID Yokum UNIT/GM PRN FILM MAKER CREA TROKENDI XR 2 tab TOPIRAMATE 90849526771 Active Malihe Active 100 MG ORAL daily h [id number] Ziglar 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 METOPROLOL 1 tab po METOPROLOL 20990960870 Active Indigo Active TARTRATE 25 bid TARTRATE Yokum MG TABS FILM MAKER AZITHROMYCI 2 po qd x AZITHROMYC 92164363825 No Jillin Active N 250 MG 1 day, IN Longer a TABS then 1 po Active Frazel qd x 4 l FILM MAKER days PREDNISONE 2 pills PREDNISONE 93386611878 No Jillin Active 20 MG TAB daily x 4 Longer a days Active Frazel l FILM MAKER PIOGLITAZON take one PIOGLITAZO 32338917241 Active Malihe Active E HCL 30 MG a day NE HCL h ORAL TABS Ziglar 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 JANUVIA 100 1 tablet SITAGLIPTI 45662220408 No Indigo Active MG TABS by mouth N Longer Yokum daily PHOSPHATE Active FILM MAKER ATORVASTATI 1 pill by ATORVASTAT 03513461478 Active Indigo Active N CALCIUM mouth IN CALCIUM Yokum 10 MG TABS nightly, FILM MAKER for cholester ol ASPIRIN 81 1 po qd ASPIRIN 93906974821 Active Indigo Active MG ORAL Yokum TABS FILM MAKER NITROFURANT One NITROFURAN 34455958021 No Indigo Active OIN MONOHYD capsule TOIN Longer Yokum MACRO 100 BID for MONOHYD Active FILM MAKER MG CAPS UTI MACRO TRAMADOL 1/2 po TRAMADOL 69953590212 No Jillin Active HCL 50 MG tid with HCL Longer a TABS ES Active Frazel Tylenol l FILM MAKER prn pain VYVANSE 20 1 tablet LISDEXAMFE 56545074107 No Jillin Active MG ORAL daily for TAMINE Longer a CAPS binge DIMESYLATE Active Frazel eating l FILM MAKER disorder LASIX 20 MG 2 tablet FUROSEMIDE 02772594236 Active Indigo Active TAB by mouth Yokum daily FILM MAKER CELEBREX 1 tablet CELECOXIB 51965544246 Active Indigo Active 200 MG CAPS by mouth Yokum daily FILM MAKER with meals PREDNISONE 2 tablets PREDNISONE 09332269291 No Joseph Active 20 MG TAB today, Longer W Farooq then 1 Active DO tablet days 2-4 DIFLUCAN 1 tablet FLUCONAZOL 94695870291 No Joseph Active 100 MG TAB by mouth E Longer W Farooq daily x 3 Active DO days DIFLUCAN 1 tablet FLUCONAZOL 18106020128 No Joseph Active 100 MG TABS by mouth E Longer W Farooq every Active DO other day for 2 doses ZOFRAN 4 MG 1 po q6hr ONDANSETRO 19034189984 Active Joseph Active TABS PRN N HCL W Farooq Nausea DO PREDNISONE 2 tabs PREDNISONE 39709437212 No Joseph Active 20 MG TAB daily for Longer W Farooq 3 days, 1 Active DO tab daily for 3 days, 1/2 tab daily for 2 days AMOXICILLIN 2 po BID AMOXICILLI 79700046829 No Maite C Active 500 MG CAPS x 10 days N Longer Madril Active PhD LISINOPRIL 1 tablet LISINOPRIL 72567946020 No Maite C Active 20 MG TABS by mouth Longer Madril daily Active PhD POTASSIUM 2 capsule POTASSIUM 79693381320 No Joseph Active CHLORIDE CR by mouth CHLORIDE Longer W Farooq 10 MEQ CPCR daily Active DO SPIRONOLACT 1 tablet SPIRONOLAC 67153143411 No Joseph Active ONE 25 MG by mouth TONE Longer W Farooq TAB daily Active DO METFORMIN 1 tablet METFORMIN 72244515595 No Joseph Active HCL 500 MG by mouth HCL Longer W Farooq TABS twice Active DO daily AMARYL 1 MG 1 tab GLIMEPIRID 16959212393 No Joseph Active TABS twice E Longer W Farooq daily Active DO PHENTERMINE 1 po q am PHENTERMIN 86305963931 No Joseph Active HCL 37.5 MG for wt. E HCL Longer W Farooq TABS loss Active DO PROMETHAZIN 1 tab by PROMETHAZI 89780964148 No Joseph Active E HCL 25 MG mouth NE HCL Longer W Farooq TABS every 6 Active DO hours as needed CIPROFLOXAC Take one CIPROFLOXA 55770962183 No Joseph Active IN HCL 500 (1) DELORES HCL Longer W Farooq MG TABS tablet by Active DO mouth twice a day ABILIFY 5 one p.o. ARIPIPRAZO 29204779638 No Joseph Active MG TABS q. day LE Longer W Farooq Active DO HYDROCHLORO 2 tabs HYDROCHLOR 79798041169 No Joseph Active THIAZIDE 25 every OTHIAZIDE Longer W Farooq MG TABS morning Active DO ABILIFY 2 1 po q hs ARIPIPRAZO 44356308621 No Joseph Active MG TABS for major LE Longer W Farooq depressio Active DO n ADIPEX-P 1/2 tab PHENTERMIN 51003289684 No Casey Active 37.5 MG po q am E HCL Longer Leonarda CAPS for Active PA weight loss CIPRO 500 1 tablet CIPROFLOXA 58633612782 No Casey Active MG TAB by mouth DELORES HCL Longer Leonarda twice Active PA daily NECON 1/35 1 po NORETHINDR 14301396605 No Casey Active (28) 1-35 daily ONE-ETH Longer Leonarda MG-MCG TABS ESTRADIOL Active PA TRAMADOL 1 po tid TRAMADOL 45080441831 No Casey Active HCL 50 MG with ES HCL Longer Leonarda TABS Tylenol Active PA FLUCONAZOLE one p.o. FLUCONAZOL 00515660527 No Casey Active 100 MG TABS q. day 2 E Longer Leonarda days Active PA POTASSIUM 1 capsule POTASSIUM 43045164788 No Casey Active CHLORIDE CR by mouth CHLORIDE Longer 10 MEQ CPCR daily Active PA IMIPRAMINE Take 6 IMIPRAMINE 05157578771 Active Indigo Active HCL 50 MG tablets HCL Yokum TABS by mouth FILM MAKER at bedtime DIFLUCAN 1 tablet FLUCONAZOL 15997369684 No Joseph Active 100 MG TAB by mouth E Longer W Farooq daily Active DO VERAPAMIL 2 po bid VERAPAMIL 90456447089 Active Indigo Active HCL CR 120 HCL Yokum MG TAB CR FILM MAKER PERMETHRIN apply PERMETHRIN 67629195457 No Joseph Active 5 % CREA neck to Longer W Farooq toes Active DO tonight and then rinse off in morning. repeat at 7 days SEROQUEL XR one p.o. QUETIAPINE 74105079514 No Joseph Active 50 MG q. FUMARATE Longer W Farooq [id number] evening Active DO TRAMADOL 1-2 TRAMADOL 92308608673 No Joseph Active HCL 50 MG tablets HCL Longer W Farooq TABS every 6-8 Active DO hours as needed for pain ALPRAZOLAM one p.o. ALPRAZOLAM 61978047301 Active Indigo Active 3 MG q.h.s. Yokum [id number] FILM MAKER ALPRAZOLAM Take 1 ALPRAZOLAM 53268509114 No Joseph Active XR tablet by [id number] Longer W Farooq [id number] mouth at Active DO bedtime DIFLUCAN 1 tablet FLUCONAZOL 43845789052 No Joseph Active 100 MG TAB by mouth E Longer W Farooq daily Active DO AMBIEN 10 1 tab by ZOLPIDEM 97164525545 Active Indigo Active MG TAB mouth at TARTRATE Yokum bedtime FILM MAKER as needed for sleep DIFLUCAN 100 1 tablet DIFLUCAN 689061 FLUCONAZOLE Inactive MG TAB by mouth 100 MG TAB daily ALPRAZOLAM Take 1 ALPRAZOLAM ALPRAZOLAM Inactive XR [id number] tablet by XR [id number] mouth at [id number] bedtime TRAMADOL HCL 1-2 TRAMADOL 194528 TRAMADOL HCL Inactive 50 MG TABS tablets HCL 50 MG every 6-8 TABS hours as needed for pain SEROQUEL XR one p.o. SEROQUEL XR QUETIAPINE Inactive 50 MG q. 50 MG FUMARATE [id number] evening [id number] PERMETHRIN 5 apply PERMETHRIN 961764 PERMETHRIN Inactive % CREA neck to 5 % CREA toes tonight and then rinse off in morning. repeat at 7 days DIFLUCAN 100 1 tablet DIFLUCAN 872883 FLUCONAZOLE Inactive MG TAB by mouth 100 MG TAB daily POTASSIUM 1 capsule POTASSIUM POTASSIUM Inactive CHLORIDE CR by mouth CHLORIDE CR CHLORIDE 10 MEQ CPCR daily 10 MEQ CPCR FLUCONAZOLE one p.o. FLUCONAZOLE 693681 FLUCONAZOLE Inactive 100 MG TABS q. day 2 100 MG TABS days TRAMADOL HCL 1 po tid TRAMADOL 775054 TRAMADOL HCL Inactive 50 MG TABS with ES HCL 50 MG Tylenol TABS NECON 1/35 1 po NECON 1/35 NORETHINDRONE- Inactive (28) 1-35 daily (28) 1-35 ETH ESTRADIOL MG-MCG TABS MG-MCG TABS CIPRO 500 MG 1 tablet CIPRO 500 589792 CIPROFLOXACIN Inactive TAB by mouth MG TAB HCL twice daily ADIPEX-P 1/2 tab ADIPEX-P 910333 PHENTERMINE Inactive 37.5 MG CAPS po q am 37.5 MG HCL for CAPS weight loss ABILIFY 2 MG 1 po q hs ABILIFY 2 427355 ARIPIPRAZOLE Inactive TABS for major MG TABS depressio n HYDROCHLOROT 2 tabs HYDROCHLORO 664322 HYDROCHLOROTHI Inactive HIAZIDE 25 every THIAZIDE 25 AZIDE MG TABS morning MG TABS ABILIFY 5 MG one p.o. ABILIFY 5 079616 ARIPIPRAZOLE Inactive TABS q. day MG TABS CIPROFLOXACI Take one CIPROFLOXAC 077415 CIPROFLOXACIN Inactive N HCL 500 MG (1) IN HCL 500 HCL TABS tablet by MG TABS mouth twice a day PROMETHAZINE 1 tab by PROMETHAZIN 747619 PROMETHAZINE Inactive HCL 25 MG mouth E HCL 25 MG HCL TABS every 6 TABS hours as needed PHENTERMINE 1 po q am PHENTERMINE 749992 PHENTERMINE Inactive HCL 37.5 MG for wt. HCL 37.5 MG HCL TABS loss TABS AMARYL 1 MG 1 tab AMARYL 1 MG 224724 GLIMEPIRIDE Inactive TABS twice TABS daily METFORMIN 1 tablet METFORMIN 202339 METFORMIN HCL Inactive HCL 500 MG by mouth HCL 500 MG TABS twice TABS daily SPIRONOLACTO 1 tablet SPIRONOLACT 386862 SPIRONOLACTONE Inactive NE 25 MG TAB by mouth ONE 25 MG daily TAB POTASSIUM 2 capsule POTASSIUM POTASSIUM Inactive CHLORIDE CR by mouth CHLORIDE CR CHLORIDE 10 MEQ CPCR daily 10 MEQ CPCR LISINOPRIL 1 tablet LISINOPRIL 011417 LISINOPRIL Inactive 20 MG TABS by mouth 20 MG TABS daily DIFLUCAN 100 1 tablet DIFLUCAN 19760111 FLUCONAZOLE Inactive MG TABS by mouth 100 MG TABS every other day for 2 doses DIFLUCAN 100 1 tablet DIFLUCAN 065334 FLUCONAZOLE Inactive MG TAB by mouth 100 MG TAB daily x 3 days PREDNISONE 2 tablets PREDNISONE 850941 PREDNISONE Inactive 20 MG TAB today, 20 MG TAB then 1 tablet days 2-4 VYVANSE 20 1 tablet VYVANSE 20 LISDEXAMFETAMI Inactive MG ORAL CAPS daily for MG ORAL NE DIMESYLATE binge CAPS eating disorder TRAMADOL HCL 1/2 po TRAMADOL 770139 TRAMADOL HCL Inactive 50 MG TABS tid with HCL 50 MG ES TABS Tylenol prn pain JANUVIA 100 1 tablet JANUVIA 100 SITAGLIPTIN Inactive MG TABS by mouth MG TABS PHOSPHATE daily AMARYL 1 MG 1 tablet AMARYL 1 MG 912654 GLIMEPIRIDE Inactive ORAL TABS orally ORAL TABS twice daily METFORMIN 2 tablets METFORMIN METFORMIN HCL Inactive HCL 500 MG by mouth HCL 500 MG TB24 twice TB24 daily AMOXICILLIN 2 po BID AMOXICILLIN 435541 AMOXICILLIN Inactive 500 MG CAPS x 10 days 500 MG CAPS PREDNISONE 2 tabs PREDNISONE 178350 PREDNISONE Inactive 20 MG TAB daily for 20 MG TAB 3 days, 1 tab daily for 3 days, 1/2 tab daily for 2 days NITROFURANTO One NITROFURANT 6843383 NITROFURANTOIN Inactive IN MONOHYD capsule OIN MONOHYD MONOHYD MACRO MACRO 100 MG BID for MACRO 100 CAPS UTI MG CAPS PREDNISONE 2 pills PREDNISONE 742560 PREDNISONE Inactive 20 MG TAB daily x 4 20 MG TAB days AZITHROMYCIN 2 po qd x AZITHROMYCI 2469567 AZITHROMYCIN Inactive 250 MG TABS 1 day, [...] HGBA1C - Chemistry sodium, serum 140 mmol/L 344-686 7126/06/03 potassium, serum 3.9 mmol/L 3.5-5.2 chloride, serum [...] Panel - Chemistry sodium, serum 136 mmol/L 491-524 9071/01/04 carbon dioxide, venous blood 27.0 mmol/L 21.0-32.0 potassium, serum 4.6 mmol/L 3.5-5.2 chloride, serum 98 mmol/L 98-107 blood glucose 174 mg/dL 65-110 urea nitrogen, blood 12 mg/dL 7-18 creatinine, serum 0.78 mg/dL 0.55-1.30 alanine aminotransferase (SGPT), serum 65 U/L 12-78 aspartate aminotransferase (SGOT), serum 34 U/L 15-37 calcium, serum 8.9 mg/dL 8.5-10.1 bilirubin, serum, total 0.40 mg/dL 0.00-1.00 cholesterol, serum 219 mg/dL 532-781 8685/01/04 triglyceride, serum, fasting 214 mg/dL 30-200 HDL cholesterol, serum 39 mg/dL 32-96 LDL cholesterol, serum 137 mg/dL 0-130 Lab Report: Lipid Panel - Chemistry cholesterol, serum 157 mg/dL 163-207 3091/08/22 triglyceride, serum, fasting 215 mg/dL 30-200 HDL [...] mg/dL Encounters Code Encounter Date Provider Facility CPT-96011 Level 4 New Patient Yury Benoit MD [facility] 15:17:12 CDT CPT-35727 Level 3 Est[facility] [place] CPT-86989 Level 4 Est. Patient Critical access hospital - 10:01:06 CDT [place] CPT-20620 Level 3 Est. 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 Patient Faby Marino [facility] 14:40:56 CDT FILM MAKER CPT-76503 Level 4 Est. Patient [facility] 17:29:53 DRAGGER OUT [employer]LE DATABASE ANALYST CPT-86064 Level 4 Est. Patient Indigo Sexton [facility] 09:51:54 DRAGGER OUT CPT-74606 Level 3 Est. Patient Indigo Sexton [facility] 18:59:38 CDT CPT-31861 Level 3 Est. Patient Joseph Pineda [facility] 14:42:12 CDT -[facility] CPT-38209 Level 3 Est. Patient Joseph Pineda [facility] 22:18:20 CDT -[facility] CPT-74080 Level 3 Est. Patient Joseph Pineda [facility] 16:46:04 CDT -[facility]HC CPT-77111 Level 3 Est. Patient Joseph Pineda [facility] 15:39:53 CDT -[facility] CPT-47214 Level 3 Est. Patient Maite Sanchez MD [facility] 13:33:34 CDT -RHC CPT-61363 Level 3 Est. Patient Joseph Pineda [facility] 11:37:08 CDT -[facility] CPT-57271 Level 3 Est. Patient Joseph Pineda [facility] 17:13:29 DRAGGER OUT -[facility]HC CPT-49614 Level 3 Est. Patient Joseph Edwin [facility] 18:42:44 CDT CPT-17930 Level 3 Est. Patient Joseph Edwin [facility] 16:25:39 CDT CPT-35793 Level 3 Est. Patient Casey ARCHIBALD [facility] 09:52:45 CDT -[facility] CPT-25318 Level 3 Est. Patient Joseph Edwin [facility] 11:03:29 DRAGGER OUT -[facility]HC CPT-19159 Level 3 Est. Patient Joseph Edwin [facility] 11:03:08 DRAGGER OUT -RHC CPT-17602 Level 3 Est. Patient Joseph Edwin [facility] 14:33:31 CDT -RHC CPT-81375 Level 3 Est. Patient [facility] 17:05:02 DRAGGER OUT -RHC CPT-73933 Level 3 Est. Patient Joseph Pineda [facility] 17:48:06 DRAGGER OUT -RHC CPT-23390 Level 3 Est. Patient Joseph Pineda [facility] 14:59:22 DRAGGER OUT -RHC CPT-33269 Level 3 Est. Patient Joseph Pineda [facility] - 21:45:56 DRAGGER OUT [place] [facility] CPT-73184 Level 3 Est. Patient Joseph Pineda [facility] 21:29:50 CDT -RHC CPT-69409 Level 3 Est. Patient Joseph Pineda [facility] 12:41:09 CDT -RHC Procedures Code Procedure Name Date Entry Date Standard Description CPT-69340 Urine Dip (Floor Use Only) 15:17:13 CDT CPT-00047 Dil F ureth int 15:17:13 CDT CPT-18194 Venipuncture Draw Fee 09:19:08 CDT CPT-78143 Lipid - LAB USE ONLY 09:19:07 CDT CPT-JTINJ Asp/Joint Injection 09:26:49 CDT CPT-40162 Chest 2V Frontal and Lat 14:47:43 CDT CPT-JTINJ Asp/Joint Injection 09:51:53 DRAGGER OUT CPT-OV Office Visit 17:39:05 CDT CPT-OV Office Visit 15:19:50 CDT CPT-01422 Sono transvag pelvis non OB uterus ovaries cervix 18:04:34 CDT CPT-87963 Venipuncture Draw Fee 08:55:49 DRAGGER OUT
--- OUTSIDE RECORDS SUMMARY | 2016-11-20 13:25 | External Medical Summary | Clinical Summary ---
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 NKDA Critical Inactive Adrianna Elder Conditions [...] Resolved Indigo Other malaise 05/24 07/02 Yokum HYSTER DRIVER and fatigue SLEEP APNEA, 327.23 Active Joseph [...] Resolved Indigo Hypopotassemia MILD 10/29 07/02 Yo HYSTER DRIVER Diabetes, Type 250.00 Inactive Joseph Pineda Diabetes 2 06/27 06/27 Farooq DO mellitus without mention of complication, type II or unspecified type, not stated as uncontrolled Diabetes 250.02 Active Indigo Diabetes mellitus, type 06/27um HYSTER DRIVER mellitus II, without mention uncontrolled of complication, [...] Resolved Indigo Routine gynecological 12/14 07/02 Yo HYSTER DRIVER gynecological examination examination Postmenopausal 627.1 Resolved Indigo Postmenopausal bleeding 12/14 07/02 Youm HYSTER DRIVER bleeding Screening for V76.51 Resolved Indigo Screening for malignant 12/26 07/02 Yokum HYSTER DRIVER malignant neoplasms of neoplasms of colon colon Insomnia, 307.42 Active Indigo 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 initiating or maintaining sleep Establish care V68.89 Resolved Indigo Encounters for or get 01/16 07/02 Yo HYSTER DRIVER other specified acquainted administrative visit purpose Weakness, left 342.90 Active Indigo Hemiplegia, side of body 06/20 06/20 Yokum HYSTER DRIVER unspecified, affecting unspecified side TIA 435.9 Active Indigo Unspecified 06/20 07/02 Yokum HYSTER DRIVER transient cerebral ischemia Knee pain, 719.46 Active Indigo Pain in joint bilateral 06/20 07/02 Yokum HYSTER DRIVER involving lower leg Bronchitis 490 Active Jillina Bronchitis, not 07/23 07/23 Frazell specified as HYSTER DRIVER acute or chronic ABNORMAL VAGINAL ICD-626.9 Inactive Maite Matt Sanchez BLEEDING PhD SCABIES ICD-133.0 Inactive Maite C Laura MD PhD FATIGUE ICD-780.79 Inactive Indigo Yokum HYSTER DRIVER OTH GENERAL ICD-V70.3 Inactive Maite C Laura MEDICAL MD PhD EXAMINATION ADMIN PURPOSES OTHER ABNORMAL ICD-790.29 Inactive Maite C Laura GLUCOSE MD PhD ACUTE BRONCHITIS ICD-466.0 Inactive Maite C Laura PhD HYPOKALEMIA, MILD ICD-276.8 Inactive Indigo Yokum HYSTER DRIVER Sinusitis, ICD-461.1 Inactive Ismael Coyne frontal, acute Amandeep ONEAL Laryngitis, acute ICD-464.00 Inactive Ismael Coyne Amandeep ONEAL Routine ICD-V72.31 Inactive Indigo Yokum gynecological HYSTER DRIVER examination Postmenopausal ICD-627.1 Inactive Indigo Yokum 2015 bleeding HYSTER DRIVER Screening for ICD-V76.51 Inactive Indigo Yokum 2015 malignant HYSTER DRIVER neoplasms of colon Establish care or ICD-V68.89 Inactive Indigo Yokum get acquainted HYSTER DRIVER visit Medication List Medication Instructions Start Stop Generic NDC Status Provider Patient Date Date Name Instruction AZITHROMYCIN 2 po AZITHROMYCIN 87657301998 Active Jillina Active 250 MG TABS qd x Frazell 1 HYSTER DRIVER day, then 1 po qd x 4 days PREDNISONE 20 2 PREDNISONE 19939964206 Active Jillina Active MG TAB pills Frazell daily HYSTER DRIVER x 4 days PIOGLITAZONE take PIOGLITAZONE 67836796040 Active Maliheh Active HCL 30 MG one a HCL Ziglari ORAL TABS day 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 JANUVIA 100 1 SITAGLIPTIN 35012885765 No Indigo Active MG TABS table PHOSPHATE Longer Yokum t by Active HYSTER DRIVER mouth daily ATORVASTATIN 1 ATORVASTATIN 50193637392 Active Indigo Active CALCIUM 10 MG pill CALCIUM Yokum TABS by HYSTER DRIVER mouth night ly, for lavelle stero l TROKENDI XR 1 tab TOPIRAMATE 65469293713 Active Indigo Active 100 MG ORAL daily Yokum [id number] HYSTER DRIVER ASPIRIN 81 MG 1 po ASPIRIN 86168965546 Active Indigo Active ORAL TABS qd Yokum HYSTER DRIVER NITROFURANTOI One NITROFURANTOI 27363124832 No Indigo Active N MONOHYD capsu N MONOHYD Longer Yokum MACRO 100 MG le MACRO Active HYSTER DRIVER CAPS BID for UTI METFORMIN HCL 2 METFORMIN HCL 93246183760 Active Indigo Active 500 MG TB24 table Yokum ts by HYSTER DRIVER mouth twice daily TRAMADOL HCL 1/2 TRAMADOL HCL 97055460501 No Jillina Active 50 MG TABS po Longer Frazell tid Active HYSTER DRIVER with ES Tylen ol prn pain VYVANSE 20 MG 1 LISDEXAMFETAM 98550165990 No Jillina Active ORAL CAPS table INE Longer Frazell t DIMESYLATE Active HYSTER DRIVER daily for binge eatin g disor janiya LASIX 20 MG 2 FUROSEMIDE 41825325739 Active Joseph W Active TAB table Farooq DO t by mouth daily CELEBREX 200 1 CELECOXIB 74835402401 Active Joseph W Active MG CAPS table Farooq DO t by mouth daily with meals PREDNISONE 20 2 PREDNISONE 99576551495 No Joseph W Active MG TAB table Longer Farooq DO ts Active today , then 1 table t days 2-4 DIFLUCAN 100 1 FLUCONAZOLE 97273252991 No Joseph W Active MG TAB table Longer Farooq DO t by Active mouth daily x 3 days AMARYL 1 MG 1 GLIMEPIRIDE 16917418645 Active Joseph W Active ORAL TABS table Farooq DO t orall y twice daily DIFLUCAN 100 1 FLUCONAZOLE 36994817428 No Joseph W Active MG TABS table Longer Farooq DO t by Active mouth every other day for 2 doses ZOFRAN 4 MG 1 po ONDANSETRON 41776186644 Active Joseph Pineda Active TABS q6hr HCL Farooq DO PRN Nause a PREDNISONE 20 2 PREDNISONE 62641878794 No Joseph Pineda Active MG TAB tabs Longer Farooq DO daily Active for 3 days, 1 tab daily for 3 days, 1/2 tab daily for 2 days AMOXICILLIN 2 po AMOXICILLIN 47715871581 No Maite C Active 500 MG CAPS BID x Longer Madril 10 Active PhD days LISINOPRIL 20 1 LISINOPRIL 29904380188 No Maite C Active MG TABS table Longer Madril t by Active PhD mouth chilo y POTASSIUM 2 POTASSIUM 94817300667 No Joseph Pineda Active CHLORIDE CR capsu CHLORIDE Longer Farooq DO 10 MEQ CPCR le by Active mouth daily SPIRONOLACTON 1 SPIRONOLACTON 59104620349 No Joseph Pineda Active E 25 MG TAB table E Longer Farooq DO t by Active mouth daily METFORMIN HCL 1 METFORMIN HCL 06240324989 No Joseph Pineda Active 500 MG TABS table Longer Farooq DO t by Active mouth twice daily AMARYL 1 MG 1 tab GLIMEPIRIDE 91501913999 No Joseph Pineda Active TABS twice Longer Farooq DO daily Active PHENTERMINE 1 po PHENTERMINE 26209551916 No Joseph W Active HCL 37.5 MG q am HCL Longer Farooq DO TABS for Active wt. loss PROMETHAZINE 1 tab PROMETHAZINE 44011506817 No Joseph W Active HCL 25 MG by HCL Longer Farooq DO TABS mouth Active every 6 hours as neede d CIPROFLOXACIN Take CIPROFLOXACIN 65278738872 No Joseph W Active HCL 500 MG one HCL Longer Farooq DO TABS (1) Active table t by mouth twice a day ABILIFY 5 MG one ARIPIPRAZOLE 53026843648 No Joseph W Active TABS p.o. Longer Farooq DO q. Active day HYDROCHLOROTH 2 HYDROCHLOROTH 99596524568 No Joseph W Active IAZIDE 25 MG tabs IAZIDE Longer Farooq DO TABS every Active morni ng ABILIFY 2 MG 1 po ARIPIPRAZOLE 71729180834 No Joseph W Active TABS q hs Longer Farooq DO for Active major depre ssion ADIPEX-P 37.5 / PHENTERMINE 75400829485 No Casey Active MG CAPS tab HCL Longer Leonarda po q Active PA am for weigh t loss CIPRO 500 MG 1 CIPROFLOXACIN 04771269728 No Casey Active TAB table HCL Longer [place] t by Active PA mouth twice daily NECON 35 1 po NORETHINDRONE 83796508160 No Casey Active (28) 1-35 daily -ETH Longer Horseheads MG-MCG TABS ESTRADIOL Active PA TRAMADOL HCL 1 po TRAMADOL HCL 93855808973 No Casey Active 50 MG TABS tid Longer Leonarda with Active PA ES Tylen ol FLUCONAZOLE one FLUCONAZOLE 66640788074 No Casey Active 100 MG TABS p.o. Longer [place] q. Active PA day 2 days POTASSIUM 1 POTASSIUM 99798843292 No Casey Active CHLORIDE CR capsu CHLORIDE Longer Leonarda 10 MEQ CPCR le by Active PA mouth daily IMIPRAMINE Take IMIPRAMINE 88724627204 Active Joseph W Active HCL 50 MG 6 HCL Farooq DO TABS table ts by mouth at bedti me DIFLUCAN 100 1 FLUCONAZOLE 85002251325 No Joseph W Active MG TAB table Longer Farooq DO t by Active mouth daily METOPROLOL 1/2 METOPROLOL 14759387282 Active Joseph W Active TARTRATE 25 tab TARTRATE Farooq DO MG TABS po bid VERAPAMIL HCL 2 po VERAPAMIL HCL 51742077280 Active Joseph W Active CR 120 MG TAB bid Farooq DO CR PERMETHRIN 5 apply PERMETHRIN 81200603030 No Joseph W Active % CREA neck Longer Farooq DO to Active toes tonig ht and then rinse off in morni ng. repea t at 7 days SEROQUEL XR one QUETIAPINE 90439571989 No Joseph W Active 50 MG p.o. FUMARATE Longer Farooq DO [id number] q. Active eveni ng TRAMADOL HCL 1-2 TRAMADOL HCL 93375565742 No Joseph W Active 50 MG TABS table Longer Farooq DO ts Active every 6-8 hours as neede d for pain ALPRAZOLAM 3 one ALPRAZOLAM 26622989746 Active Indigo Active MG [id number] p.o. Yokum q.h.s HYSTER DRIVER . ALPRAZOLAM XR Take ALPRAZOLAM 99657068713 No Joseph W Active [id number] 1 [id number] Longer Farooq DO table Active t by mouth at bedti me DIFLUCAN 100 1 FLUCONAZOLE 04081170864 No Joseph W Active MG TAB table Longer Farooq DO t by Active mouth daily AMBIEN 10 MG 1 tab ZOLPIDEM 58467144445 Active Afsaneh Active TAB by TARTRATE Gericke, mouth MA at bedti me as neede d for sleep DIFLUCAN 100 1 tablet DIFLUCAN 077490 FLUCONAZOLE Inactive MG TAB by mouth 100 MG TAB daily ALPRAZOLAM Take 1 ALPRAZOLAM ALPRAZOLAM Inactive XR [id number] tablet by XR [id number] mouth at [id number] bedtime TRAMADOL HCL 1-2 TRAMADOL 142802 TRAMADOL HCL Inactive 50 MG TABS tablets HCL 50 MG every 6-8 TABS hours as needed for pain SEROQUEL XR one p.o. SEROQUEL XR QUETIAPINE Inactive 50 MG q. 50 MG FUMARATE [id number] evening [id number] PERMETHRIN 5 apply PERMETHRIN 027411 PERMETHRIN Inactive % CREA neck to 5 % CREA toes tonight and then rinse off in morning. repeat at 7 days DIFLUCAN 100 1 tablet DIFLUCAN 903769 FLUCONAZOLE Inactive MG TAB by mouth 100 MG TAB daily POTASSIUM 1 capsule POTASSIUM POTASSIUM Inactive CHLORIDE CR by mouth CHLORIDE CR CHLORIDE 10 MEQ CPCR daily 10 MEQ CPCR FLUCONAZOLE one p.o. FLUCONAZOLE 19760111 FLUCONAZOLE Inactive 100 MG TABS q. day 2 100 MG TABS days TRAMADOL HCL 1 po tid TRAMADOL 011726 TRAMADOL HCL Inactive 50 MG TABS with ES HCL 50 MG Tylenol TABS NECON 1/35 1 po NECON 1/35 NORETHINDRONE- Inactive (28) 1-35 daily (28) 1-35 ETH ESTRADIOL MG-MCG TABS MG-MCG TABS CIPRO 500 MG 1 tablet CIPRO 500 432048 CIPROFLOXACIN Inactive TAB by mouth MG TAB HCL twice daily ADIPEX-P 1/2 tab ADIPEX-P 562064 PHENTERMINE Inactive 37.5 MG CAPS po q am 37.5 MG HCL for CAPS weight loss ABILIFY 2 MG 1 po q hs ABILIFY 2 249895 ARIPIPRAZOLE Inactive TABS for major MG TABS depressio n HYDROCHLOROT 2 tabs HYDROCHLORO 740666 HYDROCHLOROTHI Inactive HIAZIDE 25 every THIAZIDE 25 AZIDE MG TABS morning MG TABS ABILIFY 5 MG one p.o. ABILIFY 5 909946 ARIPIPRAZOLE Inactive TABS q. day MG TABS CIPROFLOXACI Take one CIPROFLOXAC 776550 CIPROFLOXACIN Inactive N HCL 500 MG (1) IN HCL 500 HCL TABS tablet by MG TABS mouth twice a day PROMETHAZINE 1 tab by PROMETHAZIN 407799 PROMETHAZINE Inactive HCL 25 MG mouth E HCL 25 MG HCL TABS every 6 TABS hours as needed PHENTERMINE 1 po q am PHENTERMINE 425603 PHENTERMINE Inactive HCL 37.5 MG for wt. HCL 37.5 MG HCL TABS loss TABS AMARYL 1 MG 1 tab AMARYL 1 MG 913686 GLIMEPIRIDE Inactive TABS twice TABS daily METFORMIN 1 tablet METFORMIN 397717 METFORMIN HCL Inactive HCL 500 MG by mouth HCL 500 MG TABS twice TABS daily SPIRONOLACTO 1 tablet SPIRONOLACT 032692 SPIRONOLACTONE Inactive NE 25 MG TAB by mouth ONE 25 MG daily TAB POTASSIUM 2 capsule POTASSIUM POTASSIUM Inactive CHLORIDE CR by mouth CHLORIDE CR CHLORIDE 10 MEQ CPCR daily 10 MEQ CPCR LISINOPRIL 1 tablet LISINOPRIL 724074 LISINOPRIL Inactive 20 MG TABS by mouth 20 MG TABS daily DIFLUCAN 100 1 tablet DIFLUCAN 511927 FLUCONAZOLE Inactive MG TABS by mouth 100 MG TABS every other day for 2 doses DIFLUCAN 100 1 tablet DIFLUCAN 192457 FLUCONAZOLE Inactive MG TAB by mouth 100 MG TAB daily x 3 days PREDNISONE 2 tablets PREDNISONE 494039 PREDNISONE Inactive 20 MG TAB today, 20 MG TAB then 1 tablet days 2-4 VYVANSE 20 1 tablet VYVANSE 20 LISDEXAMFETAMI Inactive MG ORAL CAPS daily for MG ORAL NE DIMESYLATE binge CAPS eating disorder TRAMADOL HCL 1/2 po TRAMADOL 395074 TRAMADOL HCL Inactive 50 MG TABS tid with HCL 50 MG ES TABS Tylenol prn pain JANUVIA 100 1 tablet JANUVIA 100 SITAGLIPTIN Inactive MG TABS by mouth MG TABS PHOSPHATE daily AMOXICILLIN 2 po BID AMOXICILLIN 221593 AMOXICILLIN Inactive 500 MG CAPS x 10 days 500 MG CAPS PREDNISONE 2 tabs PREDNISONE 615831 PREDNISONE Inactive 20 MG TAB daily for 20 MG TAB 3 days, 1 tab daily for 3 days, 1/2 tab daily for 2 days NITROFURANTO One NITROFURANT 8531011 NITROFURANTOIN Inactive IN MONOHYD capsule OIN MONOHYD [...] HGBA1C - Chemistry sodium, serum 140 mmol/L 880-467 2503/04/13 potassium, serum 3.9 mmol/L 3.5-5.2 chloride, serum [...] CBC, Comp. Metabolic Panel, HGBA1C - Hematology mean corpuscular volume, RBC 92 fL 80-97 hematocrit, blood 40.9 % 36.0-46.0 hemoglobin, blood 13.9 g/dL 12.0-16.0 erythrocyte (RBC) count 4.45 10^6/MM^3 10*6/mm3 4.04-5.48 leukocyte count, blood 7.0 10^3/MM^3 10*3/mm3 4.6-10.2 mean corpuscular hemoglobin, RBC 31.2 pg 27.0-31.2 [...] 198 10^3/MM^3 10*3/mm3 142-424 Lab Report: Chlamydia/GC APTIMA/12198 - Lab chlamydia DNA probe NOT DETECTED NOT DETECTED Lab Report: Chlamydia/GC APTIMA/65042 - Microbiology Neisseria gonorrhoeae DNA probe NOT DETECTED NOT DETECTED Lab Report: Comp. Metabolic Panel, Lipid Panel - Chemistry sodium, serum 136 mmol/L 815-449 2796/01/04 carbon dioxide, venous blood 27.0 mmol/L 21.0-32.0 potassium, serum 4.6 mmol/L 3.5-5.2 chloride, serum 98 mmol/L 98-107 blood glucose 174 mg/dL 65-110 urea nitrogen, blood 12 mg/dL 7-18 creatinine, serum 0.78 mg/dL 0.55-1.30 alanine aminotransferase (SGPT), serum 65 U/L 12-78 aspartate aminotransferase (SGOT), serum 34 U/L 15-37 calcium, serum 8.9 mg/dL 8.5-10.1 bilirubin, serum, total 0.40 mg/dL 0.00-1.00 cholesterol, serum 219 mg/dL 861-177 6123/01/04 triglyceride, serum, fasting 214 mg/dL 30-200 HDL [...] Hormone (L), Free Thyroxine (L) - Chemistry thyroxine, serum, free 0.88 ng/dL 0.76-1.46 TSH 2.84 m[iU]/mL 0.36-3.74 Lab Report: Thyroid Stimulating Hormone (L), MICROALBUMIN, Basic Metabol ... - Chemistry TSH 2.24 m[iU]/mL 0.36-3.74 albumin/creatinine ratio, urine < 30 mg/g mg/g{creat} 0-29 sodium, serum 140 mmol/L 071-630 3273/07/21 potassium, serum 3.9 mmol/L 3.5-5.2 chloride, serum 102 mmol/L 98-107 carbon dioxide, venous blood 33.4 mmol/L 21.0-32.0 blood glucose 156 mg/dL 65-110 calcium, serum 8.4 mg/dL 8.5-10.1 urea nitrogen, blood 14 mg/dL 7-18 creatinine, serum 1.00 mg/dL 0.60-1.30 Lab Report: Thyroid Stimulating Hormone (L), MICROALBUMIN, Basic Metabol ... - Lab microalbumin, urine 80 0-19 Lab Report: Wet Prep, CBC - Hematology mean corpuscular volume, RBC 91 fL 80-97 mean corpuscular hemoglobin 33.6 G/DL % 31.8-35.4 concentration, RBC red blood cell distribution width 14.6 % 11.6-14.8 platelet count 234 10^3/MM^3 10*3/mm3 212-192 1967/08/12 mean corpuscular hemoglobin, RBC 30.6 pg 27.0-31.2 leukocyte count, blood 6.7 10^3/MM^3 10*3/mm3 4.6-10.2 erythrocyte (RBC) count 4.73 10^6/MM^3 10*6/mm3 4.04-5.48 hemoglobin, blood 14.5 g/dL 12.0-16.0 hematocrit, blood 43.1 % 36.0-46.0 Office Visit: Diabetes Visit - Chemistry cholesterol, target level 200 mg/dL triglyceride, target level 200 mg/dL HDL cholesterol, serum, target level 35 mg/dL LDL target level 100 mg/dL home glucose monitor utilized Yes Encounters Code Encounter Date Provider Facility CPT-62231 Level 3 Est. Patient Ciaranvandanadorothy Marino [facility] 14:40:56 CDT [facility] CPT-64655 Level 4 Est. 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 Patient Indigo Sexton [facility] 09:51:54 CALL WORKER PERSON CPT-75911 Level 3 Est. [facility]22262 Level 3 Est. Patient Joseph Pineda [facility] 14:42:12 CDT -[facility] CPT-86342 Level 3 Est. Patient Joseph Edwin [facility] 22:18:20 CDT -[facility] CPT-37440 Level 3 Est. Patient Joseph Pineda [facility] 16:46:04 CDT -[facility] CPT-47960 Level 3 Est. Patient Joseph Edwin [facility] 15:39:53 CDT -[facility] CPT-08356 Level 3 Est. Patient Maite Sanchez MD PhD [facility] 13:33:34 CDT -[facility] CPT-70495 Level 3 Est. Patient Joseph Pineda [facility] 11:37:08 CDT -[facility] CPT-65737 Level 3 Est. Patient Joseph Pineda [facility] 17:13:29 CALL WORKER PERSON -[facility] CPT-56486 Level 3 Est. Patient Joseph Pineda [facility] 18:42:44 CDT CPT-01254 Level 3 Est. Patient Joseph Trivedi [facility] 16:25:39 CDT CPT-01905 Level 3 Est. Patient Casey ARCHIBALD [facility] 09:52:45 CDT -[facility] CPT-67586 Level 3 Est. Patient Joseph W [facility] 11:03:29 CALL WORKER PERSON -[facility] CPT-15620 Level 3 Est. Patient Joseph Pineda [facility] 11:03:08 CALL WORKER PERSON -[facility] CPT-67479 Level 3 Est. Patient Joseph Pineda [facility] 14:33:31 CDT -[facility] CPT-43624 Level 3 Est. Patient Joseph Edwin [facility] 17:05:02 CALL WORKER PERSON -[facility] CPT-96551 Level 3 Est. Patient Joseph Pineda [facility] 17:48:06 CALL WORKER PERSON -[facility] CPT-94356 Level 3 Est. Patient Joseph Edwin [facility] 14:59:22 CALL WORKER PERSON -[facility] CPT-31461 Level 3 Est. Patient [place] Edwin [facility] - 21:45:56 CALL WORKER PERSON Jose [facility] CPT-57350 Level 3 Est. Patient [facility] 21:29:50 CDT -[facility] CPT-74927 Level 3 Est. Patient [facility] 12:41:09 CDT -[facility] Procedures Code Procedure Name Date Entry Date Standard Description CPT-32442 Chest 2V Frontal and Lat 14:47:43 CDT CPT-JTINJ Asp/Joint Injection 09:51:53 CALL WORKER PERSON CPT-OV Office Visit 17:39:05 CDT CPT-OV Office Visit 15:19:50 CDT CPT-29915 Sono transvag pelvis non OB uterus ovaries cervix 18:04:34 CDT CPT-88651 Venipuncture Draw Fee 08:55:49 CALL WORKER PERSON
--- OUTSIDE RECORDS SUMMARY | 2016-11-20 13:26 | External Medical Summary | Clinical Summary ---
:1965 Author Organization [facility] Address [address] [place] [address] Phone Allergies, Adverse Reactions, Alerts Allergy Name [...] Routine gynecological 12/14 12/14 [place] gynecological examination [employer] examination Postmenopausal 627.1 Active Jillina Postmenopausal bleeding 12/14 12/14 [place] bleeding [employer] ABNORMAL VAGINAL ICD-626.9 Inactive Maite Sanchez BLEEDING PhD SCABIES ICD-133.0 Inactive Maite Sanchez PhD OT GENERAL ICD-V70.3 Inactive Maite Sanchez MEDICAL PhD EXAMINATION ADMIN PURPOSES OTHER ABNORMAL ICD-790.29 Inactive Maite Sanchez GLUCOSE PhD ACUTE BRONCHITIS ICD-466.0 Inactive Maite Sanchez PhD Medication List Medication Instructions Start Stop Generic NDC Status Provider Patient Date Date Name Instruction TRAMADOL / po TRAMADOL [id number] No Jillina Active HCL 50 MG tid with HCL Longer [place] TABS ES Active [employer] Tylenol prn pain VYVANSE 20 1 tablet LISDEXAMF 62123437674 No Jillina Active MG ORAL daily for ETAMINE Longer [place] CAPS binge DIMESYLAT Active [employer] eating E disorder METFORMIN 2 tablet METFORMIN 66552968031 Active Joseph W Active HCL 500 MG daily for HCL Farooq DO TB24 blood sugars LASIX 20 2 tablet FUROSEMID 74780416969 Active Joseph Pineda Active MG TAB by mouth E Farooq DO daily CELEBREX 1 tablet CELECOXIB 46174841773 Active Joseph W Active 200 MG by mouth Farooq DO CAPS daily with meals PREDNISONE 2 tablets PREDNISON 67973720108 No Joseph W Active 20 MG TAB today, E Longer Farooq DO then 1 Active tablet days 2-4 DIFLUCAN 1 tablet FLUCONAZO 34084207538 No Joseph W Active 100 MG TAB by mouth LE Longer Farooq DO daily x 3 Active days AMARYL 1 1 tablet GLIMEPIRI 61173821267 Active Joseph Pineda Active MG ORAL orally DE Farooq DO TABS twice daily DIFLUCAN 1 tablet FLUCONAZO 34828633814 No Joseph Pineda Active 100 MG by mouth LE Longer Farooq DO TABS every Active other day for 2 doses ZOFRAN 4 1 po q6hr ONDANSETR 58895615978 Active Bam Pineda Active MG TABS PRN ON HCL Dillow Nausea PREDNISONE 2 tabs PREDNISON 56985065396 No Joseph Pineda Active 20 MG TAB daily for E Longer Farooq DO 3 days, 1 Active tab daily for 3 days, 1/2 tab daily for 2 days AMOXICILLI 2 po BID AMOXICILL 98499156532 No Maite C Active N 500 MG x 10 days IN Longer Madril CAPS Active PhD LISINOPRIL 1 tablet LISINOPRI 38217448352 No Maite C Active 20 MG TABS by mouth L Longer Madril daily Active PhD POTASSIUM 2 capsule POTASSIUM 09177799923 No Joseph Pineda Active CHLORIDE by mouth CHLORIDE Longer Farooq DO CR 10 MEQ daily Active CPCR SPIRONOLAC 1 tablet SPIRONOLA 61417274019 No Joseph W Active TONE 25 MG by mouth CTONE Longer Farooq DO TAB daily Active METFORMIN 1 tablet METFORMIN 25242352253 No Joseph W Active HCL 500 MG by mouth HCL Longer Farooq DO TABS twice Active daily AMARYL 1 1 tab GLIMEPIRI 80533765770 No Joseph W Active MG TABS twice DE Longer Farooq DO daily Active PHENTERMIN 1 po q am PHENTERMI 02739316320 No Joseph W Active E HCL 37.5 for wt. NE HCL Longer Farooq DO MG TABS loss Active PROMETHAZI 1 tab by PROMETHAZ 88130991910 No Joseph W Active NE HCL 25 mouth INE HCL Longer Farooq DO MG TABS every 6 Active hours as needed CIPROFLOXA Take one CIPROFLOX 44611122541 No Joseph W Active DELORES HCL (1) ACIN HCL Longer Farooq DO 500 MG tablet by Active TABS mouth twice a day ABILIFY 5 one p.o. ARIPIPRAZ 39843705939 No Joseph W Active MG TABS q. day OLE Longer Farooq DO Active HYDROCHLOR 2 tabs HYDROCHLO 13581907378 No Joseph W Active OTHIAZIDE every ROTHIAZID Longer Farooq DO 25 MG TABS morning E Active ABILIFY 2 1 po q hs ARIPIPRAZ 92125390234 No Joseph W Active MG TABS for major OLE Longer Farooq DO depressio Active n ADIPEX-P 1/2 tab PHENTERMI 11367782852 No Casey Active 37.5 MG po q am NE HCL Longer Sundance CAPS for Active PA weight loss CIPRO 500 1 tablet CIPROFLOX 56739792576 No Casey Active MG TAB by mouth ACIN HCL Longer Sundance twice Active PA daily NECON 1/35 1 po NORETHIND 27306431703 No Casey Active (28) 1-35 daily LINDA-ETH Longer Leonarda MG-MCG ESTRADIOL Active PA TABS TRAMADOL 1 po tid TRAMADOL 45751433057 No Casey Active HCL 50 MG with ES HCL Longer Sundance TABS Tylenol Active PA FLUCONAZOL one p.o. FLUCONAZO 18706052092 No Casey Active E 100 MG q. day 2 LE Longer Leonarda TABS days Active PA POTASSIUM 1 capsule POTASSIUM 57016899518 No Casey Active CHLORIDE by mouth CHLORIDE Longer Leonarda CR 10 MEQ daily Active PA CPCR IMIPRAMINE Take 6 IMIPRAMIN 48164665297 Active Joseph Pineda Active HCL 50 MG tablets E HCL Farooq DO TABS by mouth at bedtime DIFLUCAN 1 tablet FLUCONAZO 64952544381 No Ojseph W Active 100 MG TAB by mouth LE Longer Farooq DO daily Active METOPROLOL 1/2 tab METOPROLO 85125713076 Active Joseph W Active TARTRATE po bid L Farooq DO 25 MG TABS TARTRATE VERAPAMIL 2 po bid VERAPAMIL 32996221441 Active Joseph Pineda Active HCL CR 120 HCL Farooq DO MG TAB CR PERMETHRIN apply PERMETHRI 47226536119 No Joseph Pineda Active 5 % CREA neck to N Longer Farooq DO toes Active tonight and then rinse off in morning. repeat at 7 days SEROQUEL one p.o. QUETIAPIN 67953940562 No Joseph W Active XR 50 MG q. E Longer Farooq DO [id number] evening FUMARATE Active TRAMADOL 1-2 TRAMADOL 19544388602 No Joseph W Active HCL 50 MG tablets HCL Longer Farooq DO TABS every 6-8 Active hours as needed for pain ALPRAZOLAM one p.o. ALPRAZOLA 83313314907 Active Joseph W Active 3 MG q.h.s. M Farooq DO [id number] ALPRAZOLAM Take 1 ALPRAZOLA 88285935011 No Joseph W Active XR tablet by M Longer Farooq DO [id number] mouth at [id number] Active bedtime DIFLUCAN 1 tablet FLUCONAZO 15774921594 No Joseph W Active 100 MG TAB by mouth MAGNO Longer Farooq DO daily Active AMBIEN 10 1 tab by ZOLPIDEM 73142055677 Active Joseph W Active MG TAB mouth at TARTRATE Farooq DO bedtime as needed for sleep DIFLUCAN 100 1 tablet DIFLUCAN 464946 FLUCONAZOLE Inactive MG TAB by mouth 100 MG TAB daily ALPRAZOLAM Take 1 ALPRAZOLAM ALPRAZOLAM Inactive XR [id number] tablet by XR [id number] mouth at [id number] bedtime TRAMADOL HCL 1-2 TRAMADOL 738122 TRAMADOL HCL Inactive 50 MG TABS tablets HCL 50 MG every 6-8 TABS hours as needed for pain SEROQUEL XR one p.o. SEROQUEL XR QUETIAPINE Inactive 50 MG q. evening 50 MG FUMARATE [id number] PERMETHRIN 5 apply neck PERMETHRIN 461009 PERMETHRIN Inactive % CREA to toes 5 % CREA tonight and then rinse off in morning. repeat at 7 days DIFLUCAN 100 1 tablet DIFLUCAN 444444 FLUCONAZOLE Inactive MG TAB by mouth 100 MG TAB daily POTASSIUM 1 capsule POTASSIUM POTASSIUM Inactive CHLORIDE CR by mouth CHLORIDE CR CHLORIDE 10 MEQ CPCR daily 10 MEQ CPCR FLUCONAZOLE one p.o. FLUCONAZOLE 19760111 FLUCONAZOLE Inactive 100 MG TABS q. day 2 100 MG TABS days TRAMADOL HCL 1 po tid TRAMADOL 122373 TRAMADOL HCL Inactive 50 MG TABS with ES HCL 50 MG Tylenol TABS NECON 1/35 1 po daily NECON 1/35 NORETHINDRONE- Inactive (28) 1-35 (28) 1-35 ETH ESTRADIOL MG-MCG TABS MG-MCG TABS CIPRO 500 MG 1 tablet CIPRO 500 405158 CIPROFLOXACIN Inactive TAB by mouth MG TAB HCL twice daily ADIPEX-P 1/2 tab po ADIPEX-P 892274 PHENTERMINE Inactive 37.5 MG CAPS q am for 37.5 MG HCL weight CAPS loss ABILIFY 2 MG 1 po q hs ABILIFY 2 619175 ARIPIPRAZOLE Inactive TABS for major MG TABS depression HYDROCHLOROT 2 tabs HYDROCHLORO 857198 HYDROCHLOROTHI Inactive HIAZIDE 25 every THIAZIDE 25 AZIDE MG TABS morning MG TABS ABILIFY 5 MG one p.o. ABILIFY 5 926703 ARIPIPRAZOLE Inactive TABS q. day MG TABS CIPROFLOXACI Take one CIPROFLOXAC 007470 CIPROFLOXACIN Inactive N HCL 500 MG (1) tablet IN HCL 500 HCL TABS by mouth MG TABS twice a day PROMETHAZINE 1 tab by PROMETHAZIN 550894 PROMETHAZINE Inactive HCL 25 MG mouth E HCL 25 MG HCL TABS every 6 TABS hours as needed PHENTERMINE 1 po q am PHENTERMINE 020752 PHENTERMINE Inactive HCL 37.5 MG for wt. HCL 37.5 MG HCL TABS loss TABS AMARYL 1 MG 1 tab AMARYL 1 MG 635616 GLIMEPIRIDE Inactive TABS twice TABS daily METFORMIN 1 tablet METFORMIN 574170 METFORMIN HCL Inactive HCL 500 MG by mouth HCL 500 MG TABS twice TABS daily SPIRONOLACTO 1 tablet SPIRONOLACT 030115 SPIRONOLACTONE Inactive NE 25 MG TAB by mouth ONE 25 MG daily TAB POTASSIUM 2 capsule POTASSIUM POTASSIUM Inactive CHLORIDE CR by mouth CHLORIDE CR CHLORIDE 10 MEQ CPCR daily 10 MEQ CPCR LISINOPRIL 1 tablet LISINOPRIL 041458 LISINOPRIL Inactive 20 MG TABS by mouth 20 MG TABS daily DIFLUCAN 100 1 tablet DIFLUCAN 967293 FLUCONAZOLE Inactive MG TABS by mouth 100 MG TABS every other day for 2 doses DIFLUCAN 100 1 tablet DIFLUCAN 114347 FLUCONAZOLE Inactive MG TAB by mouth 100 MG TAB daily x 3 days PREDNISONE 2 tablets PREDNISONE 906147 PREDNISONE Inactive 20 MG TAB today, 20 MG TAB then 1 tablet days 2-4 VYVANSE 20 1 tablet VYVANSE 20 LISDEXAMFETAMI Inactive MG ORAL CAPS daily for MG ORAL NE DIMESYLATE binge CAPS eating disorder TRAMADOL HCL 1/2 po tid TRAMADOL 344923 TRAMADOL HCL Inactive 50 MG TABS with ES HCL 50 MG Tylenol TABS prn pain AMOXICILLIN 2 po BID x AMOXICILLIN 203776 AMOXICILLIN Inactive 500 MG CAPS 10 days 500 MG CAPS PREDNISONE 2 tabs PREDNISONE 440610 PREDNISONE Inactive 20 MG TAB daily for [...] Panel - Chemistry sodium, serum 137 mmol/L 816-003 2980/08/29 potassium, serum 4.1 mmol/L 3.5-5.2 chloride, serum 100 mmol/L 98-107 carbon dioxide, venous blood 31.1 mmol/L 21.0-32.0 blood glucose 138 mg/dL 65-110 calcium, serum 9.2 mg/dL 8.5-10.1 urea nitrogen, blood 9 mg/dL 7-18 creatinine, serum 0.80 mg/dL 0.60-1.30 Lab Report: CBC, Comp. Metabolic Panel, HGBA1C - Chemistry sodium, serum 140 mmol/L 384-053 4635/04/13 potassium, serum 3.9 mmol/L 3.5-5.2 chloride, serum [...] 219 10^3/MM^3 10*3/mm3 142-424 Lab Report: Chlamydia/GC APTIMA/[id number] - Lab chlamydia DNA probe NOT DETECTED NOT DETECTED Lab Report: Chlamydia/GC APTIMA/39999 - Microbiology Neisseria gonorrhoeae DNA probe NOT [...] mg/g mg/g{creat} 0-29 sodium, serum 140 mmol/L 688-688 6763/07/21 potassium, serum 3.9 mmol/L 3.5-5.2 chloride, serum [...] 142-424 Encounters Code Encounter Date Provider Facility CPT-04230 Level 3 Est. Patient Joseph Pineda [facility] 14:42:12 CDT -[facility] CPT-21782 Level 3 Est. Patient Joseph Pineda [facility] 22:18:20 CDT -[facility] CPT-35489 Level 3 Est. Patient Joseph Pineda [facility] 16:46:04 CDT -[facility] CPT-57584 Level 3 Est. Patient Joseph Pineda [facility] 15:39:53 CDT -[facility] CPT-99828 Level 3 Est. Patient Maite Sanchez MD [facility] 13:33:34 CDT -[facility] CPT-30759 Level 3 Est. Patient Joseph Pineda [facility] 11:37:08 CDT -[facility] CPT-09348 Level 3 Est. 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 Patient Joseph Pineda [facility] 18:42:44 CDT CPT-21930 Level 3 Est. Patient Joseph Edwin [facility] 16:25:39 CDT CPT-06103 Level 3 Est. Patient Casey Brower [facility] 09:52:45 CDT -[facility] CPT-41933 Level 3 Est. 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 Patient Joseph Pineda [facility] 11:03:08 POLITICAL SCIENCE RESEARCH ASSISTANT -[facility] CPT-61489 Level 3 Est. Patient Joseph Pineda [facility] 14:33:31 CDT -[facility] CPT-88805 Level 3 Est. Patient Joseph Pineda [facility] 17:05:02 POLITICAL SCIENCE RESEARCH ASSISTANT -[facility] CPT-50713 Level 3 Est. Patient Joseph Edwin [facility] 17:48:06 POLITICAL SCIENCE RESEARCH ASSISTANT -[facility] CPT-34707 Level 3 Est. Patient Joseph Pineda [facility] 14:59:22 POLITICAL SCIENCE RESEARCH ASSISTANT -[facility] CPT-80312 Level 3 Est. Patient Joseph Edwin [facility] - 21:45:56 POLITICAL SCIENCE RESEARCH ASSISTANT [place] [facility] CPT-40456 Level 3 Est. Patient Joseph Pineda [facility] 21:29:50 [facility] CPT-16869 Level 3 Est. Patient Joseph Pineda [facility] 12:41:09 [facility] Procedures Code Procedure Name Date Entry Date Standard Description CPT-57379 Sono transvag pelvis non OB uterus ovaries cervix 18:04:34 T CPT-17757 Venipuncture Draw Fee 08:55:49 [employer] ASSISTANT
--- OUTSIDE RECORDS SUMMARY | 2016-11-20 13:26 | External Medical Summary | Clinical Summary ---
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 NKDA Critical Inactive Adrianna Elder Conditions [...] Resolved [facility] of [facility] Binge eating 307.51 Active Joseph Pineda Bulimia nervosa disorder 08/15 08/15 Farooq DO Routine V72.31 Active Jillina Routine gynecological 12/14 12/14 [place]ell gynecological examination ENVIRONMENTAL [employer]UDIES [employer] MEMBER examination Postmenopausal 627.1 Active Jillina Postmenopausal bleeding 12/14 12/14 [place] bleeding [employer]MENTAL [employer]IES [employer] MEMBER Screening for V76.51 Active Ismael Coyne Screening for malignant 12/26 12/26 Amandeep malignant neoplasms of MD neoplasms of colon colon Insomnia, 307.42 Active Indigo 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 [employer]BER disorder of initiating or maintaining sleep Establish care V68.89 Active Indigo Encounters for or get 01/16 01/18 [facility] [employer] MEMBER other specified acquainted administrative visit purpose ABNORMAL VAGINAL ICD-626.9 Inactive Maite Snachez BLEEDING PhD SCABIES ICD-133.0 Inactive Maite Sanchez [...] Instruction JANUVIA 100 1 tablet by SITAGLIPTIN 55974446756 Active Indigo Active MG TABS mouth daily PHOSPHATE [facility] [employer]BER METFORMIN 2 tablets METFORMIN HCL 80446560827 Active Indigo Active HCL 500 MG by mouth [place] TB24 twice daily ENV[employer]AL [employer] MEMBER TRAMADOL HCL 1/2 po tid 2 TRAMADOL HCL 54299082024 No Jillina Active 50 MG TABS with ES 0 Longer [place] Tylenol prn 1 Active [employer]AL [employer] MEMBER pain 5 / 0 2 VYVANSE 20 1 tablet 2 LISDEXAMFETAMIN 74245702518 No Jillina Active MG ORAL CAPS daily for 0 E DIMESYLATE Longer [place] binge 1 Active ENVIRONMENTAL [employer]IES [employer]ACULTY MEMBER eating 5 disorder / 0 2 LASIX 20 MG 2 tablet by FUROSEMIDE 94239225470 Active Joseph W Active TAB mouth daily Farooq DO CELEBREX 200 1 tablet by CELECOXIB 71576690170 Active Joseph W Active MG CAPS mouth daily Farooq DO with meals PREDNISONE 2 tablets 2 PREDNISONE 15944610371 No Joseph W Active 20 MG TAB today, then 0 Longer Farooq DO 1 tablet 1 Active days 2-4 5 / 0 4 / 3 DIFLUCAN 100 1 tablet by 2 FLUCONAZOLE 19145682547 No Joseph W Active MG TAB mouth daily 0 Longer Farooq DO x 3 days 1 Active 5 / 0 4 / 3 AMARYL 1 MG 1 tablet GLIMEPIRIDE 45483917537 Active Joseph W Active ORAL TABS orally Farooq DO twice daily DIFLUCAN 100 1 tablet by 2 FLUCONAZOLE 84723470647 No Joseph W Active MG TABS mouth every 0 Longer Farooq DO other day 1 Active for 2 doses 5 / 0 1 / 2 3 ZOFRAN 4 MG 1 po q6hr ONDANSETRON HCL 58679081663 Active Joseph Pineda Active TABS PRN Nausea Farooq DO PREDNISONE 2 tabs 2 PREDNISONE 80325479587 No Joseph W Active 20 MG TAB daily for 3 0 Longer Farooq DO days, 1 tab 1 Active daily for 3 4 days, 1/2 / tab daily 1 for 2 days 0 / 2 5 AMOXICILLIN 2 po BID x 2 AMOXICILLIN 16405248524 No Maite C Active 500 MG CAPS 10 days 0 Longer Madril 1 Active PhD 0 / 2 0 LISINOPRIL 1 tablet by 2 LISINOPRIL 25893035687 No Maite C Active 20 MG TABS mouth 0 Longer Madril daily 1 Active PhD 0 0 POTASSIUM 2 capsule 2 POTASSIUM 03719681418 No Joseph Pineda Active CHLORIDE CR by mouth 0 CHLORIDE Longer 10 MEQ CPCR daily 1 Active 4 / 0 8 / 2 9 SPIRONOLACTO 1 tablet by 2 SPIRONOLACTONE 59648895713 No Joseph Pineda Active NE 25 MG TAB mouth daily 0 Longer Farooq 1 Active 4 / 0 8 / 2 9 METFORMIN 1 tablet 2 METFORMIN HCL 25455934853 No Joseph Pineda Active HCL 500 MG by mouth 0 Longer [facility] TABS twice daily 1 Active 4 / 0 8 / 2 9 AMARYL 1 MG 1 tab twice 2 GLIMEPIRIDE 95578907958 No Joseph Pineda Active TABS daily 0 Longer Farooq 1 Active 4 / 0 8 / 2 9 PHENTERMINE 1 po q am 2 PHENTERMINE HCL 36794991343 No Joseph Pineda Active HCL 37.5 MG for wt. 0 Longer Farooq DO TABS loss 1 Active 3 / 1 2 / 2 3 PROMETHAZINE 1 tab by 2 PROMETHAZINE 64439372940 No Joseph W Active HCL 25 MG mouth every 0 HCL Longer [facility] TABS 6 hours as 1 Active needed 3 / 0 9 / 0 9 CIPROFLOXACI Take one 2 CIPROFLOXACIN 88670694785 No Joseph W Active N HCL 500 MG (1) tablet 0 HCL Longer Farooq DO TABS by mouth 1 Active twice a day 3 / 0 9 / 0 9 ABILIFY 5 MG one p.o. q. 2 ARIPIPRAZOLE 61671774879 No Joseph W Active TABS day 0 Longer Farooq DO 1 Active 3 / 0 9 / 0 9 HYDROCHLOROT 2 tabs 2 HYDROCHLOROTHIA 67668087204 No Joseph W Active HIAZIDE 25 every 0 ZIDE Longer Farooq DO MG TABS morning 1 Active 3 / 0 6 / 2 7 ABILIFY 2 MG 1 po q hs 2 ARIPIPRAZOLE 01844975474 No Joseph W Active TABS for major 0 Longer Farooq depression 1 Active 3 / 0 5 / 0 7 ADIPEX-P 1/2 tab po 2 PHENTERMINE HCL 14868689162 No Casey Active 37.5 MG CAPS q am for 0 Longer Gary weight loss 1 Active PA 3 / 0 5 / 0 1 CIPRO 500 MG 1 tablet by 2 CIPROFLOXACIN 85229580490 No Casey Active TAB mouth twice 0 HCL Longer Gary daily 1 Active PA 3 / 0 5 / 0 1 NECON 35 1 po daily 2 NORETHINDRONE-E 82333048505 No Casey Active () -35 0 ESTRADIOL Longer Gary MG-MCG TABS 1 Active PA 3 / 0 5 / 0 1 TRAMADOL HCL 1 po tid 2 TRAMADOL HCL 09638951030 No Casey Active 50 MG TABS with ES 0 Longer Gary Tylenol 1 Active PA 3 / 0 5 / 0 1 FLUCONAZOLE one p.o. q. 2 FLUCONAZOLE 33959983902 No Casey Active 100 MG TABS day 2 days 0 Longer Leonarda 1 Active PA 3 / 0 5 / 0 1 POTASSIUM 1 capsule 2 POTASSIUM 04458909774 No Casey Active CHLORIDE CR by mouth 0 CHLORIDE Longer 10 MEQ CPCR daily 1 Active PA 3 / 0 5 / 0 1 IMIPRAMINE Take 6 IMIPRAMINE HCL 65947561522 Active Joseph W Active HCL 50 MG tablets by [facility] TABS mouth at bedtime DIFLUCAN 100 1 tablet by 2 FLUCONAZOLE 78209131718 No Joseph W Active MG TAB mouth daily 0 Longer Farooq DO 1 Active 2 / 0 2 / 2 4 METOPROLOL 1/2 tab po METOPROLOL 11704286209 Active Joseph W Active TARTRATE 25 bid TARTRATE Farooq DO MG TABS VERAPAMIL 2 po bid VERAPAMIL HCL 77660610638 Active Joseph W Active HCL CR 120 Farooq DO MG TAB CR PERMETHRIN 5 apply neck 2 PERMETHRIN 54102097490 No Joseph W Active % CREA to toes 0 Longer Farooq DO tonight and 1 Active then rinse 2 off in / morning. 0 repeat at 7 1 days / 2 0 SEROQUEL XR one p.o. q. 2 QUETIAPINE 36513564006 No Joseph W Active 50 MG evening 0 FUMARATE Longer Farooq DO [id number] 1 Active 2 / 0 1 / 2 0 TRAMADOL HCL 1-2 tablets 2 TRAMADOL HCL 15797795970 No Joseph W Active 50 MG TABS every 6-8 0 Longer Farooq DO hours as 1 Active needed for 2 pain / 0 1 / 2 0 ALPRAZOLAM 3 one p.o. ALPRAZOLAM 05907742888 Active Joseph W Active MG [id number] q.h.s. Farooq DO ALPRAZOLAM Take 1 2 ALPRAZOLAM 06274218053 No Joseph W Active XR [id number] tablet by 0 [id number] Longer Farooq DO mouth at 1 Active bedtime 1 / 2 9 DIFLUCAN 100 1 tablet by 2 FLUCONAZOLE 43210029151 No Joseph W Active MG TAB mouth daily 0 Longer Farooq DO 1 Active 0 / 0 6 AMBIEN 10 MG 1 tab by ZOLPIDEM 17745197782 Active Joseph W Active TAB mouth at TARTRATE Farooq DO bedtime as needed for sleep DIFLUCAN 100 1 tablet DIFLUCAN 608693 FLUCONAZOLE Inactive MG TAB by mouth 100 MG TAB daily ALPRAZOLAM Take 1 ALPRAZOLAM ALPRAZOLAM Inactive XR [id number] tablet by XR [id number] mouth at [id number] bedtime TRAMADOL HCL 1-2 TRAMADOL 122418 TRAMADOL HCL Inactive 50 MG TABS tablets HCL 50 MG every 6-8 TABS hours as needed for pain SEROQUEL XR one p.o. SEROQUEL XR QUETIAPINE Inactive 50 MG q. evening 50 MG FUMARATE [id number] PERMETHRIN 5 apply neck PERMETHRIN 906125 PERMETHRIN Inactive % CREA to toes 5 % CREA tonight and then rinse off in morning. repeat at 7 days DIFLUCAN 100 1 tablet DIFLUCAN 117881 FLUCONAZOLE Inactive MG TAB by mouth 100 MG TAB daily POTASSIUM 1 capsule POTASSIUM POTASSIUM Inactive CHLORIDE CR by mouth CHLORIDE CR CHLORIDE 10 MEQ CPCR daily 10 MEQ CPCR FLUCONAZOLE one p.o. FLUCONAZOLE 19760111 FLUCONAZOLE Inactive 100 MG TABS q. day 2 100 MG TABS days TRAMADOL HCL 1 po tid TRAMADOL 788540 TRAMADOL HCL Inactive 50 MG TABS with ES HCL 50 MG Tylenol TABS NECON 1/35 1 po daily NECON 1/35 NORETHINDRONE- Inactive (28) 1-35 (28) 1-35 ETH ESTRADIOL MG-MCG TABS MG-MCG TABS CIPRO 500 MG 1 tablet CIPRO 500 372333 CIPROFLOXACIN Inactive TAB by mouth MG TAB HCL twice daily ADIPEX-P 1/2 tab po ADIPEX-P 383643 PHENTERMINE Inactive 37.5 MG CAPS q am for 37.5 MG HCL weight CAPS loss ABILIFY 2 MG 1 po q hs ABILIFY 2 776105 ARIPIPRAZOLE Inactive TABS for major MG TABS depression HYDROCHLOROT 2 tabs HYDROCHLORO 065538 HYDROCHLOROTHI Inactive HIAZIDE 25 every THIAZIDE 25 AZIDE MG TABS morning MG TABS ABILIFY 5 MG one p.o. ABILIFY 5 969654 ARIPIPRAZOLE Inactive TABS q. day MG TABS CIPROFLOXACI Take one CIPROFLOXAC 512603 CIPROFLOXACIN Inactive N HCL 500 MG (1) tablet IN HCL 500 HCL TABS by mouth MG TABS twice a day PROMETHAZINE 1 tab by PROMETHAZIN 018370 PROMETHAZINE Inactive HCL 25 MG mouth E HCL 25 MG HCL TABS every 6 TABS hours as needed PHENTERMINE 1 po q am PHENTERMINE 023424 PHENTERMINE Inactive HCL 37.5 MG for wt. HCL 37.5 MG HCL TABS loss TABS AMARYL 1 MG 1 tab AMARYL 1 MG 820010 GLIMEPIRIDE Inactive TABS twice TABS daily METFORMIN 1 tablet METFORMIN 423684 METFORMIN HCL Inactive HCL 500 MG by mouth HCL 500 MG TABS twice TABS daily SPIRONOLACTO 1 tablet SPIRONOLACT 134345 SPIRONOLACTONE Inactive NE 25 MG TAB by mouth ONE 25 MG daily TAB POTASSIUM 2 capsule POTASSIUM POTASSIUM Inactive CHLORIDE CR by mouth CHLORIDE CR CHLORIDE 10 MEQ CPCR daily 10 MEQ CPCR LISINOPRIL 1 tablet LISINOPRIL 324779 LISINOPRIL Inactive 20 MG TABS by mouth 20 MG TABS daily DIFLUCAN 100 1 tablet DIFLUCAN 465375 FLUCONAZOLE Inactive MG TABS by mouth 100 MG TABS every other day for 2 doses DIFLUCAN 100 1 tablet DIFLUCAN 086454 FLUCONAZOLE Inactive MG TAB by mouth 100 MG TAB daily x 3 days PREDNISONE 2 tablets PREDNISONE 618272 PREDNISONE Inactive 20 MG TAB today, 20 MG TAB then 1 tablet days 2-4 VYVANSE 20 1 tablet VYVANSE 20 LISDEXAMFETAMI Inactive MG ORAL CAPS daily for MG ORAL NE DIMESYLATE binge CAPS eating disorder TRAMADOL HCL 1/2 po tid TRAMADOL 287867 TRAMADOL HCL Inactive 50 MG TABS with ES HCL 50 MG Tylenol TABS prn pain AMOXICILLIN 2 po BID x AMOXICILLIN 764109 AMOXICILLIN Inactive 500 MG CAPS 10 days 500 MG CAPS PREDNISONE 2 tabs PREDNISONE 918226 PREDNISONE Inactive 20 MG TAB daily for [...] HGBA1C - Chemistry sodium, serum 140 mmol/L 777-520 9131/04/13 potassium, serum 3.9 mmol/L 3.5-5.2 chloride, serum [...] 4.3-6.0 Lab Report: CBC, Comp. Metabolic Panel, [facility] - Hematology leukocyte count, blood 7.0 [...] 219 10^3/MM^3 10*3/mm3 142-424 Lab Report: CBC, [facility] - Chemistry hemoglobin A1C, blood, as % [...] 198 10^3/MM^3 10*3/mm3 142-424 Lab Report: Chlamydia/GC APTIMA/83104 - Lab chlamydia DNA probe NOT DETECTED NOT DETECTED Lab Report: Chlamydia/GC APTIMA/11987 - Microbiology Neisseria gonorrhoeae DNA probe NOT DETECTED NOT DETECTED Lab Report: Comp. Metabolic Panel, Lipid Panel - Chemistry sodium, serum 136 mmol/L 942-758 2242/01/04 carbon dioxide, venous blood 27.0 mmol/L 21.0-32.0 potassium, serum 4.6 mmol/L 3.5-5.2 chloride, serum 98 mmol/L 98-107 blood glucose 174 mg/dL 65-110 urea nitrogen, blood 12 mg/dL 7-18 creatinine, serum 0.78 mg/dL 0.55-1.30 alanine aminotransferase (SGPT), serum 65 U/L 12-78 aspartate aminotransferase (SGOT), serum 34 U/L 15-37 calcium, serum 8.9 mg/dL 8.5-10.1 bilirubin, serum, total 0.40 mg/dL 0.00-1.00 cholesterol, serum 219 mg/dL 436-299 4657/01/04 triglyceride, serum, fasting 214 mg/dL 30-200 HDL [...] mg/g mg/g{creat} 0-29 sodium, serum 140 mmol/L 172-221 9362/07/21 potassium, serum 3.9 mmol/L 3.5-5.2 chloride, serum [...] 142-424 Encounters Code Encounter Date Provider Facility CPT-06275 Level 3 Est. Patient Indigo Sexton [facility] 18:59:38 CDT CPT-21403 Level 3 Est. Patient Joseph Pineda [facility] 14:42:12 CDT -[facility] CPT-23337 Level 3 Est. Patient Joseph Pineda [facility] 22:18:20 CDT -RHC CPT-31032 Level 3 Est. Patient Joseph Pineda [facility] 16:46:04 CDT -RHC CPT-53316 Level 3 Est. Patient Joseph Trivedi [facility] 15:39:53 CDT -RHC CPT-58182 Level 3 Est. Patient Maite Sanchez MD PhD [facility] 13:33:34 CDT -[facility]HC CPT-70411 Level 3 Est. Patient Joseph Pineda [facility] 11:37:08 CDT -RHC CPT-26834 Level 3 Est. Patient Joseph Pineda [facility] 17:13:29 BODY BUILDER -RHC CPT-10378 Level 3 Est. Patient Joseph Edwin [facility] 18:42:44 CDT CPT-68437 Level 3 Est. Patient Joseph Edwin [facility] 16:25:39 CDT CPT-77816 Level 3 Est. Patient Casey Garzaner [facility] 09:52:45 CDT -RHC CPT-63232 Level 3 Est. Patient Joseph Edwin [facility] 11:03:29 BODY BUILDER -RHC CPT-14672 Level 3 Est. Patient [place] Edwin [facility] 11:03:08 BODY BUILDER -RHC CPT-60220 Level 3 Est. Patient [facility] 14:33:31 CDT -RHC CPT-59590 Level 3 Est. Patient [facility] 17:05:02 BODY BUILDER -RHC CPT-82499 Level 3 Est. Patient [facility] 17:48:06 BODY BUILDER -RHC CPT-32981 Level 3 Est. Patient [facility] 14:59:22 BODY BUILDER -RHC CPT-35035 Level 3 Est. Patient [facility] - 21:45:56 BODY BUILDER [place] [facility] CPT-28946 Level 3 Est. Patient [facility] 21:29:50 CDT -RHC CPT-49802 Level 3 Est. Patient [facility] 12:41:09 CDT -RHC Procedures Code Procedure Name Date Entry Date Standard Description CPT-OV Office Visit 17:39:05 CDT CPT-OV Office Visit 15:19:50 CDT CPT-23173 Sono transvag pelvis non OB uterus ovaries cervix 18:04:34 CDT CPT-40342 Venipuncture Draw Fee 08:55:49 BODY BUILDER
--- OUTSIDE RECORDS SUMMARY | 2016-11-20 13:27 | External Medical Summary | Clinical Summary ---
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 LEAD killed her NKDA Critical Active Indigo Yokum NETWORK LEAD NKDA Critical No Longer Indigo Yokum NETWORK LEAD Active NKDA Critical Inactive Adrianna Elder Conditions [...] Resolved Indigo Other malaise 05/24 07/02 Yokum NETWORK LEAD and fatigue SLEEP APNEA, 327.23 Active Joseph Pineda Obstructive OBSTRUCTIVE, 06/27 06/27 Farooq DO sleep apnea MILD (adult) (pediatric) OVERWEIGHT 278.02 Inactive Joseph Pineda Overweight 06/28 06/28 Farooq DO Obesity 278.00 Active Indigo Obesity, 06/28 10/18 [employer]um NETWORK LEAD unspecified OTH GENERAL V70.3 Resolved Maite C Other general MEDICAL Laura ONEAL medical EXAMINATION PhD examination for ADMIN PURPOSES administrative purposes OTHER ABNORMAL 790.29 Resolved Maite C Other abnormal GLUCOSE 05/20 Laura ONEAL glucose PhD ACUTE 466.0 Resolved Maite C Acute BRONCHITIS 09/02 Laura ONEAL bronchitis PhD DEPENDENT 782.3 Resolved Indigo Edema EDEMA, LEGS, 10/29 10/18 Yokum NETWORK LEAD BILATERAL HYPOKALEMIA, 276.8 Resolved Indigo Hypopotassemia MILD 10/29 07/02 Yokum NETWORK LEAD Diabetes, Type 250.00 Inactive Joseph Pineda Diabetes 2 06/27 06/27 Farooq DO mellitus without mention of complication, type II or unspecified type, not stated as uncontrolled Diabetes 250.02 Resolved Indigo Diabetes mellitus, type 06/27um NETWORK LEAD mellitus II, without mention uncontrolled of complication, type II or unspecified type, uncontrolled Health V70.0 Active Joseph Pineda Routine general screening 01/17 01/17 Farooq DO medical examination at a health care facility Sinusitis, 461.1 Resolved Ismael Coyne Acute frontal frontal, acute 012/26 Amandeep sinusitis Laryngitis, 464.00 Resolved Ismael Coyne Acute acute 012/26 Amandeep laryngitis without mention of obstruction Binge eating 307.51 Active Joseph Pineda Bulimia nervosa disorder 08/15 08/15 Farooq DO Routine V72.31 Resolved Indigo Routine gynecological 12/14 07/02 Yokum NETWORK LEAD gynecological examination examination Postmenopausal 627.1 Resolved Indigo Postmenopausal bleeding 12/14 07/02 Yokum NETWORK LEAD bleeding Screening for V76.51 Resolved Indigo Screening for malignant 12/26 07/02 Yokum NETWORK LEAD malignant neoplasms of neoplasms of colon colon Insomnia, 307.42 Active Indigo 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 NETWORK LEAD disorder of initiating or maintaining sleep Establish care V68.89 Resolved Indigo Encounters for or get 01/16 07/02 Yokum NETWORK LEAD other specified acquainted administrative visit purpose Weakness, left 342.90 Resolved Indigo Hemiplegia, side of body 06/20 10/18 Yokum NETWORK LEAD unspecified, affecting unspecified side TIA 435.9 Active Indigo Unspecified 06/20 07/02 Yokum NETWORK LEAD transient cerebral ischemia Knee pain, 719.46 Active Indigo Pain in joint bilateral 06/20 10/18 Yokum NETWORK LEAD involving lower leg Bronchitis 490 Resolved Indigo Bronchitis, not 07/23 10/18 Yokum NETWORK LEAD specified as acute or chronic Diabetes 357.2 Active Maliheh Polyneuropathy mellitus, 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 FILLER 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y Knee pain, 719.46 Active Indigo Pain in joint right 06/20 10/18 [employer]um NETWORK LEAD involving lower leg Jesi 112.3 Active Indigo Candidiasis of intertrigo 10/09 10/18 [employer]um NETWORK LEAD skin and nails Hyperlipidemia 272.4 Active Anne Other and 12/24 12/24 Neil unspecified RMA hyperlipidemia Incontinence, 788.33 Active Indigo Mixed mixed, 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 NETWORK LEAD incontinence urge/stress (female) (male) Female stress 625.6 Active Yury Monaco Stress incontinence 01/03 01/03 Cy patel MD female ABNORMAL VAGINAL ICD-626.9 Inactive Maite Sanchez BLEEDING PhD SCABIES ICD-133.0 Inactive Maiet Sanchez PhD FATIGUE ICD-780.79 Inactive Indigo Yokum NETWORK LEAD OTH GENERAL ICD-V70.3 Inactive Maite Sanchez MEDICAL PhD EXAMINATION ADMIN PURPOSES OTHER ABNORMAL ICD-790.29 Inactive Maite Sanchez GLUCOSE PhD ACUTE BRONCHITIS ICD-466.0 Inactive Maite Sanchez PhD DEPENDENT EDEMA, ICD-782.3 Inactive Indigo Yokum LEGS, BILATERAL NETWORK LEAD HYPOKALEMIA, MILD ICD-276.8 Inactive Indigo [employer]okum NETWORK LEAD Diabetes mellitus, ICD-250.02 Inactive Indigo Yokum type II, NETWORK LEAD uncontrolled Sinusitis, ICD-461.1 Inactive Ismael Coyne frontal, acute Amandeep ONEAL Laryngitis, acute ICD-464.00 Inactive Ismael Coyne Amandeep ONEAL Routine ICD-V72.31 Inactive Indigo Yokum gynecological NETWORK LEAD examination Postmenopausal ICD-627.1 Inactive Indigo Yokum 2015 bleeding NETWORK LEAD Screening for ICD-V76.51 Inactive Indigo Yokum 2015 malignant NETWORK LEAD neoplasms of colon Establish care or ICD-V68.89 Inactive Indigo Yokum get acquainted NETWORK LEAD visit Weakness, left ICD-342.90 Inactive Indigo Yokum side of body NETWORK LEAD Bronchitis ICD-490 Inactive Indigo Yokum NETWORK LEAD Medication List Medication Instructions Start Stop Generic NDC Status Provider Patient Date Date Name Instruction METFORMIN 2 tablets METFORMIN 55709737588 No Indigo Active HCL 500 MG by mouth HCL Longer Yokum TB24 twice Active NETWORK LEAD daily AMARYL 1 MG 1 tablet GLIMEPIRID 37322539861 No Indigo Active ORAL TABS orally E Longer Yokum twice Active NETWORK LEAD daily NYSTATIN apply to NYSTATIN 86005354598 Active Indigo Active 826730 rash TID Yokum UNIT/GM PRN NETWORK LEAD CREA TROKENDI XR 2 tab TOPIRAMATE 72307591304 Active Malihe Active 100 MG ORAL daily h [id number] Ziglar i TANK FILLER METOPROLOL 1 tab po METOPROLOL 00209911007 Active Indigo Active TARTRATE 25 bid TARTRATE Yokum MG TABS NETWORK LEAD AZITHROMYCI 2 po qd x AZITHROMYC 04754695885 No Jillin Active N 250 MG 1 day, IN Longer a TABS then 1 po Active Frazel qd x 4 l NETWORK LEAD days PREDNISONE 2 pills PREDNISONE 08377960209 No Jillin Active 20 MG TAB daily x 4 Longer a days Active Frazel l NETWORK LEAD PIOGLITAZON take one PIOGLITAZO 76383489610 Active Malihe Active E HCL 30 MG a day NE HCL h ORAL TABS Ziglar i TANK FILLER JANUVIA 100 1 tablet SITAGLIPTI 40264667198 No Indigo Active MG TABS by mouth N Longer Yokum daily PHOSPHATE Active NETWORK LEAD ATORVASTATI 1 pill by ATORVASTAT 71888834176 Active Indigo Active N CALCIUM mouth IN CALCIUM Yokum 10 MG TABS nightly, NETWORK LEAD for cholester ol ASPIRIN 81 1 po qd ASPIRIN 81782151424 Active Indigo Active MG ORAL [place]um TABS NETWORK LEAD NITROFURANT One NITROFURAN 35516025952 No Indigo Active OIN MONOHYD capsule TOIN Longer Yokum MACRO 100 BID for MONOHYD Active NETWORK LEAD MG CAPS UTI MACRO TRAMADOL 1/2 po TRAMADOL 35279055359 No Jillin Active HCL 50 MG tid with HCL Longer a TABS ES Active Frazel Tylenol l NETWORK LEAD prn pain VYVANSE 20 1 tablet LISDEXAMFE 72716265630 No Jillin Active MG ORAL daily for TAMINE Longer a CAPS binge DIMESYLATE Active Frazel eating l NETWORK LEAD disorder LASIX 20 MG 2 tablet FUROSEMIDE 09821616921 Active Indigo Active TAB by mouth Yokum daily NETWORK LEAD CELEBREX 1 tablet CELECOXIB 47961024222 Active Indigo Active 200 MG CAPS by mouth Yokum daily NETWORK LEAD with meals PREDNISONE 2 tablets PREDNISONE 25579598574 No Joseph Active 20 MG TAB today, Longer W Farooq then 1 Active DO tablet days 2-4 DIFLUCAN 1 tablet FLUCONAZOL 95244746862 No Joseph Active 100 MG TAB by mouth E Longer W Farooq daily x 3 Active DO days DIFLUCAN 1 tablet FLUCONAZOL 68741982716 No Joseph Active 100 MG TABS by mouth E Longer W Farooq every Active DO other day for 2 doses ZOFRAN 4 MG 1 po q6hr ONDANSETRO 37071152389 Active Joseph Active TABS PRN N HCL W Farooq Nausea DO PREDNISONE 2 tabs PREDNISONE 73115183920 No Joseph Active 20 MG TAB daily for Longer W Farooq 3 days, 1 Active DO tab daily for 3 days, 1/2 tab daily for 2 days AMOXICILLIN 2 po BID AMOXICILLI 30727917413 No Maite C Active 500 MG CAPS x 10 days N Longer Madril Active PhD LISINOPRIL 1 tablet LISINOPRIL 34870664487 No Maite C Active 20 MG TABS by mouth Longer Madril daily Active PhD POTASSIUM 2 capsule POTASSIUM 85634274517 No Joseph Active CHLORIDE CR by mouth CHLORIDE Longer W Farooq 10 MEQ CPCR daily Active DO SPIRONOLACT 1 tablet SPIRONOLAC 02596644217 No Joseph Active ONE 25 MG by mouth TONE Longer W Farooq TAB daily Active DO METFORMIN 1 tablet METFORMIN 49754100084 No Joseph Active HCL 500 MG by mouth HCL Longer W Farooq TABS twice Active DO daily AMARYL 1 MG 1 tab GLIMEPIRID 14236577986 No Joseph Active TABS twice E Longer W Farooq daily Active DO PHENTERMINE 1 po q am PHENTERMIN 87206156049 No Joseph Active HCL 37.5 MG for wt. E HCL Longer W Farooq TABS loss Active DO PROMETHAZIN 1 tab by PROMETHAZI 99100619216 No Joseph Active E HCL 25 MG mouth NE HCL Longer W Farooq TABS every 6 Active DO hours as needed CIPROFLOXAC Take one CIPROFLOXA 02670293873 No Joseph Active IN HCL 500 (1) DELORES HCL Longer W Farooq MG TABS tablet by Active DO mouth twice a day ABILIFY 5 one p.o. ARIPIPRAZO 42735013212 No Joseph Active MG TABS q. day LE Longer W Farooq Active DO HYDROCHLORO 2 tabs HYDROCHLOR 53093564225 No Joseph Active THIAZIDE 25 every OTHIAZIDE Longer W Farooq MG TABS morning Active DO ABILIFY 2 1 po q hs ARIPIPRAZO 58906128567 No Joseph Active MG TABS for major LE Longer W Farooq depressio Active DO n ADIPEX-P 1/2 tab PHENTERMIN 60713631093 No Casey Active 37.5 MG po q am E HCL Longer Leonarda CAPS for Active PA weight loss CIPRO 500 1 tablet CIPROFLOXA 31432861712 No Casey Active MG TAB by mouth DELORES HCL Longer Leonarda twice Active PA daily NECON 1/35 1 po NORETHINDR 89064238037 No Casey Active (28) 1-35 daily ONE-ETH Longer Leonarda MG-MCG TABS ESTRADIOL Active PA TRAMADOL 1 po tid TRAMADOL 33782116897 No Casey Active HCL 50 MG with ES HCL Longer Avilla TABS Tylenol Active PA FLUCONAZOLE one p.o. FLUCONAZOL 29405077665 No Casey Active 100 MG TABS q. day 2 E Longer Leonarda days Active PA POTASSIUM 1 capsule POTASSIUM 70348236289 No Casey Active CHLORIDE CR by mouth CHLORIDE Longer Avilla 10 MEQ CPCR daily Active PA IMIPRAMINE Take 6 IMIPRAMINE 07607446704 Active Indigo Active HCL 50 MG tablets HCL Y[place]um TABS by mouth NETWORK LEAD at bedtime DIFLUCAN 1 tablet FLUCONAZOL 06389246764 No Joseph Active 100 MG TAB by mouth E Longer W Farooq daily Active DO VERAPAMIL 2 po bid VERAPAMIL 49466928425 Active Indigo Active HCL CR 120 HCL Yokum MG TAB CR NETWORK LEAD PERMETHRIN apply PERMETHRIN 59599286244 No Joseph Active 5 % CREA neck to Longer W Farooq toes Active DO tonight and then rinse off in morning. repeat at 7 days SEROQUEL XR one p.o. QUETIAPINE 77187887958 No Joseph Active 50 MG q. FUMARATE Longer W Farooq [id number] evening Active DO TRAMADOL 1-2 TRAMADOL 70609710486 No Joseph Active HCL 50 MG tablets HCL Longer W Farooq TABS every 6-8 Active DO hours as needed for pain ALPRAZOLAM one p.o. ALPRAZOLAM 49119383166 Active Indigo Active 3 MG q.h.s. Yokum [id number] NETWORK LEAD ALPRAZOLAM Take 1 ALPRAZOLAM 10863622951 No Joseph Active XR tablet by [id number] Longer W Farooq [id number] mouth at Active DO bedtime DIFLUCAN 1 tablet FLUCONAZOL 50575688866 No Joseph Active 100 MG TAB by mouth E Longer W Farooq daily Active DO AMBIEN 10 1 tab by ZOLPIDEM 11107544160 Active Indigo Active MG TAB mouth at TARTRATE Yokum bedtime NETWORK LEAD as needed for sleep DIFLUCAN 100 1 tablet DIFLUCAN 515029 FLUCONAZOLE Inactive MG TAB by mouth 100 MG TAB daily ALPRAZOLAM Take 1 ALPRAZOLAM ALPRAZOLAM Inactive XR [id number] tablet by XR [id number] mouth at [id number] bedtime TRAMADOL HCL 1-2 TRAMADOL 467212 TRAMADOL HCL Inactive 50 MG TABS tablets HCL 50 MG every 6-8 TABS hours as needed for pain SEROQUEL XR one p.o. SEROQUEL XR QUETIAPINE Inactive 50 MG q. 50 MG FUMARATE [id number] evening [id number] PERMETHRIN 5 apply PERMETHRIN 440948 PERMETHRIN Inactive % CREA neck to 5 % CREA toes tonight and then rinse off in morning. repeat at 7 days DIFLUCAN 100 1 tablet DIFLUCAN 060596 FLUCONAZOLE Inactive MG TAB by mouth 100 MG TAB daily POTASSIUM 1 capsule POTASSIUM POTASSIUM Inactive CHLORIDE CR by mouth CHLORIDE CR CHLORIDE 10 MEQ CPCR daily 10 MEQ CPCR FLUCONAZOLE one p.o. FLUCONAZOLE 19760111 FLUCONAZOLE Inactive 100 MG TABS q. day 2 100 MG TABS days TRAMADOL HCL 1 po tid TRAMADOL 295873 TRAMADOL HCL Inactive 50 MG TABS with ES HCL 50 MG Tylenol TABS NECON 1/35 1 po NECON 1/35 NORETHINDRONE- Inactive (28) 1-35 daily (28) 1-35 ETH ESTRADIOL MG-MCG TABS MG-MCG TABS CIPRO 500 MG 1 tablet CIPRO 500 453945 CIPROFLOXACIN Inactive TAB by mouth MG TAB HCL twice daily ADIPEX-P 1/2 tab ADIPEX-P 312048 PHENTERMINE Inactive 37.5 MG CAPS po q am 37.5 MG HCL for CAPS weight loss ABILIFY 2 MG 1 po q hs ABILIFY 2 792826 ARIPIPRAZOLE Inactive TABS for major MG TABS depressio n HYDROCHLOROT 2 tabs HYDROCHLORO 093122 HYDROCHLOROTHI Inactive HIAZIDE 25 every THIAZIDE 25 AZIDE MG TABS morning MG TABS ABILIFY 5 MG one p.o. ABILIFY 5 709724 ARIPIPRAZOLE Inactive TABS q. day MG TABS CIPROFLOXACI Take one CIPROFLOXAC 819004 CIPROFLOXACIN Inactive N HCL 500 MG (1) IN HCL 500 HCL TABS tablet by MG TABS mouth twice a day PROMETHAZINE 1 tab by PROMETHAZIN 677285 PROMETHAZINE Inactive HCL 25 MG mouth E HCL 25 MG HCL TABS every 6 TABS hours as needed PHENTERMINE 1 po q am PHENTERMINE 100348 PHENTERMINE Inactive HCL 37.5 MG for wt. HCL 37.5 MG HCL TABS loss TABS AMARYL 1 MG 1 tab AMARYL 1 MG 039453 GLIMEPIRIDE Inactive TABS twice TABS daily METFORMIN 1 tablet METFORMIN 435264 METFORMIN HCL Inactive HCL 500 MG by mouth HCL 500 MG TABS twice TABS daily SPIRONOLACTO 1 tablet SPIRONOLACT 431983 SPIRONOLACTONE Inactive NE 25 MG TAB by mouth ONE 25 MG daily TAB POTASSIUM 2 capsule POTASSIUM POTASSIUM Inactive CHLORIDE CR by mouth CHLORIDE CR CHLORIDE 10 MEQ CPCR daily 10 MEQ CPCR LISINOPRIL 1 tablet LISINOPRIL 636566 LISINOPRIL Inactive 20 MG TABS by mouth 20 MG TABS daily DIFLUCAN 100 1 tablet DIFLUCAN 666371 FLUCONAZOLE Inactive MG TABS by mouth 100 MG TABS every other day for 2 doses DIFLUCAN 100 1 tablet DIFLUCAN 19760111 FLUCONAZOLE Inactive MG TAB by mouth 100 MG TAB daily x 3 days PREDNISONE 2 tablets PREDNISONE 269922 PREDNISONE Inactive 20 MG TAB today, 20 MG TAB then 1 tablet days 2-4 VYVANSE 20 1 tablet VYVANSE 20 LISDEXAMFETAMI Inactive MG ORAL CAPS daily for MG ORAL NE DIMESYLATE binge CAPS eating disorder TRAMADOL HCL 1/2 po TRAMADOL 632335 TRAMADOL HCL Inactive 50 MG TABS tid with HCL 50 MG ES TABS Tylenol prn pain JANUVIA 100 1 tablet JANUVIA 100 SITAGLIPTIN Inactive MG TABS by mouth MG TABS PHOSPHATE daily AMARYL 1 MG 1 tablet AMARYL 1 MG 060081 GLIMEPIRIDE Inactive ORAL TABS orally ORAL TABS twice daily METFORMIN 2 tablets METFORMIN METFORMIN HCL Inactive HCL 500 MG by mouth HCL 500 MG TB24 twice TB24 daily AMOXICILLIN 2 po BID AMOXICILLIN 115696 AMOXICILLIN Inactive 500 MG CAPS x 10 days 500 MG CAPS PREDNISONE 2 tabs PREDNISONE 445459 PREDNISONE Inactive 20 MG TAB daily for 20 MG TAB 3 days, 1 tab daily for 3 days, 1/2 tab daily for 2 days NITROFURANTO One NITROFURANT 3814886 NITROFURANTOIN Inactive IN MONOHYD capsule OIN MONOHYD MONOHYD MACRO MACRO 100 MG BID for MACRO 100 CAPS UTI MG CAPS PREDNISONE 2 pills PREDNISONE 505062 PREDNISONE Inactive 20 MG TAB daily x 4 20 MG TAB days AZITHROMYCIN 2 po qd x AZITHROMYCI 5326080 AZITHROMYCIN Inactive 250 MG TABS 1 day, [...] HGBA1C - Chemistry sodium, serum 140 mmol/L 554-586 1263/06/03 potassium, serum 3.9 mmol/L 3.5-5.2 chloride, serum [...] Panel - Chemistry cholesterol, serum 157 mg/dL 342-482 2587/08/22 triglyceride, serum, fasting 215 mg/dL 30-200 HDL [...] mg/dL Encounters Code Encounter Date Provider Facility CPT-17331 Level 4 New Patient Yury Benoit MD [facility] 15:17:12 CDT CPT-10334 Level 3 Est. Patient [facility], [facility] - 13:37:46 CDT [place] CPT-76040 Level 4 Est. Patient [facility] - 10:01:06 CDT [place] CPT-67212 Level 3 Est. Patient [facility] 08:58:07 CDT [employer] CPT-00824 Level 3 Est. Patient Faby Marino [facility] 14:40:56 CDT [facility] CPT-41491 Level 4 Est. Patient [facility] 17:29:53 [employer]ACH[employer] KNOTTER [employer] CPT-16633 Level 4 Est. Patient [facility] 09:51:54 [employer]ACHINE KNOTTER CPT-00767 Level 3 Est. Patient [facility] 18:59:38 CDT CPT-36946 Level 3 Est. Patient Joseph Pineda [facility] 14:42:12 CDT -[facility] CPT-99996 Level 3 Est. Patient Joseph Pineda [facility] 22:18:20 CDT -[facility] CPT-26113 Level 3 Est. Patient Joseph Edwin [facility] 16:46:04 CDT -[facility] CPT-17383 Level 3 Est. Patient Joseph Edwin [facility] 15:39:53 CDT -[facility] CPT-72569 Level 3 Est. Patient Maite Sanchez MD [facility] 13:33:34 CDT -[facility] CPT-26886 Level 3 Est. Patient Roy Edwin [facility] 11:37:08 CDT -[facility] CPT-40222 Level 3 Est. 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 Patient Roy Edwin [facility] 18:42:44 CDT CPT-42492 Level 3 Est. Patient Roy Edwin [facility] 16:25:39 CDT CPT-33172 Level 3 Est. Patient Casey Brower [facility] 09:52:45 CDT -R[facility] CPT-89075 Level 3 Est. 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 Patient Roy Edwin [facility] 11:03:08 WARP TYING MACHINE KNOTTER -[facility] CPT-08010 Level 3 Est. Patient [facility] 14:33:31 CDT -[facility] CPT-69824 Level 3 Est. Patient [facility] 17:05:02 WARP TYING MACHINE KNOTTER -[facility] CPT-96865 Level 3 Est. Patient [facility] 17:48:06 WARP TYING MACHINE KNOTTER -[facility] CPT-55483 Level 3 Est. Patient Joseph W Farooq [facility] 14:59:22 WARP TYING MACHINE KNOTTER -[facility] CPT-77552 Level 3 Est. Patient Joseph Trivedi [facility] - 21:45:56 W[employer] TYING MACHINE KNOTTER [place] [facility] CPT-47100 Level 3 Est. Patient Joseph Trivedi [facility] 21:29:50 CDT -RHC CPT-16284 Level 3 Est. Patient Joseph Trivedi [facility] 12:41:09 CDT -[facility] Procedures Code Procedure Name Date Entry Date Standard Description CPT-28969 Urine Culture - LAB USE ONLY 11:52:44 [employer] KNOTTER CPT-01810 UA w micro - LAB USE ONLY 11:52:44 [employer] K[employer]TER CPT-11404 Postop F/U Visit 12:08:35 CDT CPT-23080 Postop F/U Visit 18:20:10 CDT CPT-A4351 [facility] Female Cath 09:37:10 CDT CPT-79089 Urine Dip (Floor Use Only) 15:17:13 CDT CPT-28216 Dil F ureth int 15:17:13 CDT CPT-05864 Venipuncture Draw Fee 09:19:08 CDT CPT-27358 Lipid - LAB USE ONLY 09:19:07 CDT CPT-JTINJ Asp/Joint Injection 09:26:49 CDT CPT-13063 Chest 2V Frontal and Lat 14:47:43 CDT CPT-JTINJ Asp/Joint Injection 09:51:53 [employer] MACH[employer] KNOTTER CPT-OV Office Visit 17:39:05 CDT CPT-OV Office Visit 15:19:50 CDT CPT-46036 Sono transvag pelvis non OB uterus ovaries cervix 18:04:34 CDT CPT-83839 Venipuncture Draw Fee 08:55:49 WARP TYING MACHINE KNOTTER
--- OUTSIDE RECORDS SUMMARY | 2016-11-20 13:27 | External Medical Summary | Clinical Summary ---
:1965 Author Organization [facility] Address [address] [place] [address] Phone Allergies, Adverse Reactions, Alerts Allergy Name [...] Routine gynecological 12/14 12/14 [place] gynecological examination PHOTOGRAPHY ASSISTANT examination Postmenopausal 627.1 Active Jillina Postmenopausal bleeding 12/14 12/14 [place] bleeding PHOTOGRAPHY ASSISTANT ABNORMAL VAGINAL ICD-626.9 Inactive Maite Sanchez BLEEDING PhD SCABIES ICD-133.0 Inactive Maite Sanchez PhD OT GENERAL ICD-V70.3 Inactive Maite Sanchez MEDICAL PhD EXAMINATION ADMIN PURPOSES OTHER ABNORMAL ICD-790.29 Inactive Maite Sanchez GLUCOSE PhD ACUTE BRONCHITIS ICD-466.0 Inactive Maite Sanchez PhD Medication List Medication Instructions Start Stop Generic NDC Status Provider Patient Date Date Name Instruction TRAMADOL / po TRAMADOL [id number] No Jillina Active HCL 50 MG tid with HCL Longer [place] TABS ES Active PHOTOGRAPHY ASSISTANT Tylenol prn pain VYVANSE 20 1 tablet LISDEXAMF 81757231142 No Jillina Active MG ORAL daily for ETAMINE Longer [place] CAPS binge DIMESYLAT Active PHOTOGRAPHY ASSISTANT eating E disorder METFORMIN 2 tablet METFORMIN 87900444224 Active Joseph W Active HCL 500 MG daily for HCL Farooq DO TB24 blood sugars LASIX 20 2 tablet FUROSEMID 46655675950 Active Joseph Pineda Active MG TAB by mouth E Farooq DO daily CELEBREX 1 tablet CELECOXIB 76616653435 Active Joseph W Active 200 MG by mouth Farooq DO CAPS daily with meals PREDNISONE 2 tablets PREDNISON 69949702030 No Joseph W Active 20 MG TAB today, E Longer Farooq DO then 1 Active tablet days 2-4 DIFLUCAN 1 tablet FLUCONAZO 21055731151 No Joseph W Active 100 MG TAB by mouth LE Longer Farooq DO daily x 3 Active days AMARYL 1 1 tablet GLIMEPIRI 40565249649 Active Joseph Pineda Active MG ORAL orally DE Farooq DO TABS twice daily DIFLUCAN 1 tablet FLUCONAZO 93873526511 No Joseph Pineda Active 100 MG by mouth LE Longer Farooq DO TABS every Active other day for 2 doses ZOFRAN 4 1 po q6hr ONDANSETR 05876267670 Active Bam Pineda Active MG TABS PRN ON HCL Dillow Nausea PREDNISONE 2 tabs PREDNISON 26977138936 No Joseph Pineda Active 20 MG TAB daily for E Longer Farooq DO 3 days, 1 Active tab daily for 3 days, 1/2 tab daily for 2 days AMOXICILLI 2 po BID AMOXICILL 71177822089 No Maite C Active N 500 MG x 10 days IN Longer Madril CAPS Active PhD LISINOPRIL 1 tablet LISINOPRI 51841672098 No Maite C Active 20 MG TABS by mouth L Longer Madril daily Active PhD POTASSIUM 2 capsule POTASSIUM 71272343958 No Joseph Pineda Active CHLORIDE by mouth CHLORIDE Longer Farooq DO CR 10 MEQ daily Active CPCR SPIRONOLAC 1 tablet SPIRONOLA 65314152192 No Joseph W Active TONE 25 MG by mouth CTONE Longer Farooq DO TAB daily Active METFORMIN 1 tablet METFORMIN 07001539694 No Joseph W Active HCL 500 MG by mouth HCL Longer Farooq DO TABS twice Active daily AMARYL 1 1 tab GLIMEPIRI 96376976694 No Joseph W Active MG TABS twice DE Longer Farooq DO daily Active PHENTERMIN 1 po q am PHENTERMI 29737862216 No Joseph W Active E HCL 37.5 for wt. NE HCL Longer Farooq DO MG TABS loss Active PROMETHAZI 1 tab by PROMETHAZ 43271759418 No Joseph W Active NE HCL 25 mouth INE HCL Longer Farooq DO MG TABS every 6 Active hours as needed CIPROFLOXA Take one CIPROFLOX 94916122175 No Joseph W Active DELORES HCL (1) ACIN HCL Longer Farooq DO 500 MG tablet by Active TABS mouth twice a day ABILIFY 5 one p.o. ARIPIPRAZ 69939332212 No Joseph W Active MG TABS q. day OLE Longer Farooq DO Active HYDROCHLOR 2 tabs HYDROCHLO 64422511163 No Joseph W Active OTHIAZIDE every ROTHIAZID Longer Farooq DO 25 MG TABS morning E Active ABILIFY 2 1 po q hs ARIPIPRAZ 28717454603 No Joseph W Active MG TABS for major OLE Longer Farooq DO depressio Active n ADIPEX-P 1/2 tab PHENTERMI 38134844141 No Casey Active 37.5 MG po q am NE HCL Longer [place] CAPS for Active PA weight loss CIPRO 500 1 tablet CIPROFLOX 61903032488 No Casey Active MG TAB by mouth ACIN HCL Longer [place] twice Active PA daily NECON 1/35 1 po NORETHIND 78502799022 No Casey Active (28) 1-35 daily LINDA-ETH Longer Leonarda MG-MCG ESTRADIOL Active PA TABS TRAMADOL 1 po tid TRAMADOL 97773701105 No Casey Active HCL 50 MG with ES HCL Longer [place] TABS Tylenol Active PA FLUCONAZOL one p.o. FLUCONAZO 87900344396 No Casey Active E 100 MG q. day 2 LE Longer Leonarda TABS days Active PA POTASSIUM 1 capsule POTASSIUM 27257439828 No Casey Active CHLORIDE by mouth CHLORIDE Longer [place]a CR 10 MEQ daily Active PA CPCR IMIPRAMINE Take 6 IMIPRAMIN 73922459276 Active Joseph Pineda Active HCL 50 MG tablets E HCL Farooq DO TABS by mouth at bedtime DIFLUCAN 1 tablet FLUCONAZO 29451454558 No Joseph W Active 100 MG TAB by mouth LE Longer Farooq DO daily Active METOPROLOL 1/2 tab METOPROLO 15840561580 Active Joseph W Active TARTRATE po bid L Farooq DO 25 MG TABS TARTRATE VERAPAMIL 2 po bid VERAPAMIL 54628194087 Active Joseph Pineda Active HCL CR 120 HCL Farooq DO MG TAB CR PERMETHRIN apply PERMETHRI 77015390516 No Joseph Pineda Active 5 % CREA neck to N Longer Farooq DO toes Active tonight and then rinse off in morning. repeat at 7 days SEROQUEL one p.o. QUETIAPIN 28498000272 No Joseph W Active XR 50 MG q. E Longer Farooq DO [id number] evening FUMARATE Active TRAMADOL 1-2 TRAMADOL 95444136779 No Joseph W Active HCL 50 MG tablets HCL Longer Farooq DO TABS every 6-8 Active hours as needed for pain ALPRAZOLAM one p.o. ALPRAZOLA 69158464621 Active Joseph W Active 3 MG q.h.s. M Farooq DO [id number] ALPRAZOLAM Take 1 ALPRAZOLA 63181673907 No Joseph W Active XR tablet by M Longer Farooq DO [id number] mouth at [id number] Active bedtime DIFLUCAN 1 tablet FLUCONAZO 86996816147 No Joseph W Active 100 MG TAB by mouth MAGNO Longer Farooq DO daily Active AMBIEN 10 1 tab by ZOLPIDEM 12142354555 Active Joseph W Active MG TAB mouth at TARTRATE Farooq DO bedtime as needed for sleep DIFLUCAN 100 1 tablet DIFLUCAN 318974 FLUCONAZOLE Inactive MG TAB by mouth 100 MG TAB daily ALPRAZOLAM Take 1 ALPRAZOLAM ALPRAZOLAM Inactive XR [id number] tablet by XR [id number] mouth at [id number] bedtime TRAMADOL HCL 1-2 TRAMADOL 887403 TRAMADOL HCL Inactive 50 MG TABS tablets HCL 50 MG every 6-8 TABS hours as needed for pain SEROQUEL XR one p.o. SEROQUEL XR QUETIAPINE Inactive 50 MG q. evening 50 MG FUMARATE [id number] PERMETHRIN 5 apply neck PERMETHRIN 686206 PERMETHRIN Inactive % CREA to toes 5 % CREA tonight and then rinse off in morning. repeat at 7 days DIFLUCAN 100 1 tablet DIFLUCAN 775449 FLUCONAZOLE Inactive MG TAB by mouth 100 MG TAB daily POTASSIUM 1 capsule POTASSIUM POTASSIUM Inactive CHLORIDE CR by mouth CHLORIDE CR CHLORIDE 10 MEQ CPCR daily 10 MEQ CPCR FLUCONAZOLE one p.o. FLUCONAZOLE 19760111 FLUCONAZOLE Inactive 100 MG TABS q. day 2 100 MG TABS days TRAMADOL HCL 1 po tid TRAMADOL 974811 TRAMADOL HCL Inactive 50 MG TABS with ES HCL 50 MG Tylenol TABS NECON 1/35 1 po daily NECON 1/35 NORETHINDRONE- Inactive (28) 1-35 (28) 1-35 ETH ESTRADIOL MG-MCG TABS MG-MCG TABS CIPRO 500 MG 1 tablet CIPRO 500 063342 CIPROFLOXACIN Inactive TAB by mouth MG TAB HCL twice daily ADIPEX-P 1/2 tab po ADIPEX-P 117738 PHENTERMINE Inactive 37.5 MG CAPS q am for 37.5 MG HCL weight CAPS loss ABILIFY 2 MG 1 po q hs ABILIFY 2 611489 ARIPIPRAZOLE Inactive TABS for major MG TABS depression HYDROCHLOROT 2 tabs HYDROCHLORO 108728 HYDROCHLOROTHI Inactive HIAZIDE 25 every THIAZIDE 25 AZIDE MG TABS morning MG TABS ABILIFY 5 MG one p.o. ABILIFY 5 261742 ARIPIPRAZOLE Inactive TABS q. day MG TABS CIPROFLOXACI Take one CIPROFLOXAC 386689 CIPROFLOXACIN Inactive N HCL 500 MG (1) tablet IN HCL 500 HCL TABS by mouth MG TABS twice a day PROMETHAZINE 1 tab by PROMETHAZIN 392404 PROMETHAZINE Inactive HCL 25 MG mouth E HCL 25 MG HCL TABS every 6 TABS hours as needed PHENTERMINE 1 po q am PHENTERMINE 040179 PHENTERMINE Inactive HCL 37.5 MG for wt. HCL 37.5 MG HCL TABS loss TABS AMARYL 1 MG 1 tab AMARYL 1 MG 355805 GLIMEPIRIDE Inactive TABS twice TABS daily METFORMIN 1 tablet METFORMIN 499506 METFORMIN HCL Inactive HCL 500 MG by mouth HCL 500 MG TABS twice TABS daily SPIRONOLACTO 1 tablet SPIRONOLACT 105341 SPIRONOLACTONE Inactive NE 25 MG TAB by mouth ONE 25 MG daily TAB POTASSIUM 2 capsule POTASSIUM POTASSIUM Inactive CHLORIDE CR by mouth CHLORIDE CR CHLORIDE 10 MEQ CPCR daily 10 MEQ CPCR LISINOPRIL 1 tablet LISINOPRIL 796125 LISINOPRIL Inactive 20 MG TABS by mouth 20 MG TABS daily DIFLUCAN 100 1 tablet DIFLUCAN 159382 FLUCONAZOLE Inactive MG TABS by mouth 100 MG TABS every other day for 2 doses DIFLUCAN 100 1 tablet DIFLUCAN 082836 FLUCONAZOLE Inactive MG TAB by mouth 100 MG TAB daily x 3 days PREDNISONE 2 tablets PREDNISONE 110770 PREDNISONE Inactive 20 MG TAB today, 20 MG TAB then 1 tablet days 2-4 VYVANSE 20 1 tablet VYVANSE 20 LISDEXAMFETAMI Inactive MG ORAL CAPS daily for MG ORAL NE DIMESYLATE binge CAPS eating disorder TRAMADOL HCL 1/2 po tid TRAMADOL 086151 TRAMADOL HCL Inactive 50 MG TABS with ES HCL 50 MG Tylenol TABS prn pain AMOXICILLIN 2 po BID x AMOXICILLIN 725107 AMOXICILLIN Inactive 500 MG CAPS 10 days 500 MG CAPS PREDNISONE 2 tabs PREDNISONE 997909 PREDNISONE Inactive 20 MG TAB daily for [...] Panel - Chemistry sodium, serum 137 mmol/L 574-476 3641/08/29 potassium, serum 4.1 mmol/L 3.5-5.2 chloride, serum 100 mmol/L 98-107 carbon dioxide, venous blood 31.1 mmol/L 21.0-32.0 blood glucose 138 mg/dL 65-110 calcium, serum 9.2 mg/dL 8.5-10.1 urea nitrogen, blood 9 mg/dL 7-18 creatinine, serum 0.80 mg/dL 0.60-1.30 Lab Report: CBC, Comp. Metabolic Panel, HGBA1C - Chemistry sodium, serum 140 mmol/L 801-811 2769/04/13 potassium, serum 3.9 mmol/L 3.5-5.2 chloride, serum [...] 219 10^3/MM^3 10*3/mm3 142-424 Lab Report: Chlamydia/GC APTIMA/[id number] - Lab chlamydia DNA probe NOT DETECTED NOT DETECTED Lab Report: Chlamydia/GC APTIMA/[id number] - Microbiology Neisseria gonorrhoeae DNA probe NOT [...] mg/g mg/g{creat} 0-29 sodium, serum 140 mmol/L 772-320 3722/07/21 potassium, serum 3.9 mmol/L 3.5-5.2 chloride, serum [...] 142-424 Encounters Code Encounter Date Provider Facility CPT-78272 Level 3 Est. Patient Joseph Pineda [facility] 14:42:12 [facility] CPT-67086 Level 3 Est. Patient Joseph Pineda [facility] 22:18:20 [facility]T -[facility] CPT-47887 Level 3 Est. Patient Joseph Pineda [facility] 16:46:04 CDT -[facility] CPT-65040 Level 3 Est. Patient Joseph Pineda [facility] 15:39:53 CDT -[facility] CPT-54505 Level 3 Est. Patient Maite Sanchez MD [facility] 13:33:34 CDT -[facility] CPT-97698 Level 3 Est. Patient Joseph Pineda [facility] 11:37:08 CDT -[facility] CPT-07938 Level 3 Est. Patient Joseph Pineda [facility] 17:13:29 TAILER IN -[facility] CPT-96314 Level 3 Est. Patient Joseph Pineda [facility] 18:42:44 CDT CPT-52752 Level 3 Est. Patient Joseph Edwin [facility] 16:25:39 CDT CPT-04432 Level 3 Est. Patient Casey Brower [facility] 09:52:45 CDT -[facility] CPT-69227 Level 3 Est. Patient Joseph Edwin [facility] 11:03:29 [facility] -[facility] CPT-91758 Level 3 Est. Patient Joseph Pineda [facility] 11:03:08 [facility]IL[facility] -[facility] CPT-04857 Level 3 Est. Patient Joseph Pineda [facility] 14:33:31 CDT -[facility] CPT-97628 Level 3 Est. Patient Joseph Pineda [facility] 17:05:02 TAILER IN -[facility] CPT-87585 Level 3 Est. Patient Joseph Edwin [facility] 17:48:06 TAILER IN -[facility] CPT-57026 Level 3 Est. Patient Joseph Pineda [facility] 14:59:22 TAILER IN -[facility] CPT-22183 Level 3 Est. Patient Joseph Edwin [facility] - 21:45:56 TAILER IN [place] [facility] CPT-52233 Level 3 Est. Patient Joseph Pineda [facility] 21:29:50 [facility] CPT-01512 Level 3 Est. Patient Joseph Pineda [facility] 12:41:09 [facility] Procedures Code Procedure Name Date Entry Date Standard Description CPT-65774 Sono transvag pelvis non OB uterus ovaries cervix 18:04:34 T CPT-54506 Venipuncture Draw Fee 08:55:49 TAILER IN
--- OUTSIDE RECORDS SUMMARY | 2016-11-20 13:28 | External Medical Summary | Clinical Summary ---
:1965 Author Organization [facility] [employer] Address [address] [address] Phone Allergies, Adverse Reactions, Alerts Allergy Name Reaction Description Start Date Severity Status Provider VERSED States jsut about Critical Active Gloria Saavedra DIGITAL MEDIA SPECIALIST killed her NKDA Critical Active Indigo Y[place]um FLIGHT ENGINEER NKDA Critical No Longer Indigo [place]um FLIGHT ENGINEER Active NKDA Critical Inactive Adrianna Elder Conditions [...] Resolved Indigo Other malaise 05/24 07/02 [place] FLIGHT ENGINEER and fatigue SLEEP APNEA, 327.23 Active Joseph Pineda Obstructive OBSTRUCTIVE, 06/27 06/27 Farooq DO sleep apnea MILD (adult) (pediatric) OVERWEIGHT 278.02 Inactive Joseph Pineda Overweight 06/28 06/28 Farooq DO Obesity 278.00 Active Indigo Obesity, 06/28 10/18 [place] FLIGHT ENGINEER unspecified OTH GENERAL V70.3 Resolved Maite Gutierrez Other general MEDICAL Laura ONEAL medical EXAMINATION PhD examination for ADMIN administrative PURPOSES purposes OTHER 790.29 Resolved Maite C Other abnormal ABNORMAL 05/20 Laura ONEAL glucose GLUCOSE PhD ACUTE 466.0 Resolved Maite Gutierrez Acute bronchitis BRONCHITIS 09/02 Laura ONEAL PhD DEPENDENT 782.3 Resolved Indigo Edema EDEMA, LEGS, 10/29 10/18 [place] FLIGHT ENGINEER BILATERAL HYPOKALEMIA, 276.8 Resolved Indigo Hypopotassemia MILD 10/29 07/02 [place] FLIGHT ENGINEER Diabetes, 250.00 Inactive Joseph Pineda Diabetes Type 2 06/27 06/27 Farooq DO mellitus without mention of complication, type II or unspecified type, not stated as uncontrolled Diabetes 250.02 Resolved Indigo Diabetes mellitus, 06/27 10/18 [place] FLIGHT ENGINEER mellitus without type II, mention of uncontrolled [...] Resolved Indigo Routine gynecological 12/14 07/02 [place] FLIGHT ENGINEER gynecological examination examination Postmenopausa 627.1 Resolved Indigo Postmenopausal l bleeding 12/14 07/02 [place] FLIGHT ENGINEER bleeding Screening for V76.51 Resolved Indigo Screening for malignant 12/26 07/02 [place] FLIGHT ENGINEER malignant neoplasms of neoplasms of colon colon Insomnia, 307.42 Active Indigo 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 FLIGHT ENGINEER disorder of initiating or maintaining sleep Establish V68.89 Resolved Indigo Encounters for care or get 01/16 07/02 [place] FLIGHT ENGINEER other specified acquainted administrative visit purpose Weakness, 342.90 Resolved Indigo Hemiplegia, left side of 06/20 10/18 [place] FLIGHT ENGINEER unspecified, body affecting unspecified side TIA 435.9 Active Indigo Unspecified 06/20 07/02 [place] FLIGHT ENGINEER transient cerebral ischemia Knee pain, 719.46 Active Indigo Pain in joint bilateral 06/20 10/18 [place] FLIGHT ENGINEER involving lower leg Bronchitis 490 Resolved Indigo Bronchitis, not 07/23 10/18 [place] FLIGHT ENGINEER specified as acute or chronic Diabetes 357.2 Active Maliheh Polyneuropathy mellitus, 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 REPRESENTATIVE 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 y Knee pain, 719.46 Active Indigo Pain in joint right 06/20 10/18 [place] FLIGHT ENGINEER involving lower leg Jesi 112.3 Active Indigo Candidiasis of intertrigo 10/09 10/18 [place] FLIGHT ENGINEER skin and nails Hyperlipidemi 272.4 Active Anne Other and a 12/24 12/24 Neil unspecified RMA hyperlipidemia Incontinence, 788.33 Active Indigo Mixed mixed, 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 FLIGHT ENGINEER incontinence urge/stress (female) (male) Female stress 625.6 Active Yury Monaco Stress incontinence 01/03 01/03 Cy patel MD female Vaginal odor 623.8 Active Gloria Other specified 05/28 05/28 Naff DIGITAL MEDIA SPECIALIST noninflammatory disorders of vagina Urinary tract 599.0 Active Indigo Urinary tract infection 05/28 05/28 [place] FLIGHT ENGINEER infection, site not specified ABNORMAL VAGINAL ICD-626.9 Inactive Maite Sanchez BLEEDING PhD SCABIES ICD-133.0 Inactive Maite Sanchez PhD FATIGUE ICD-780.79 Inactive Indigo [place] FLIGHT ENGINEER OTH GENERAL ICD-V70.3 Inactive Maite Sanchez MEDICAL MD PhD EXAMINATION ADMIN PURPOSES OTHER ABNORMAL ICD-790.29 Inactive Maite Sanchez GLUCOSE PhD ACUTE BRONCHITIS ICD-466.0 Inactive Maite Sanchez PhD DEPENDENT EDEMA, ICD-782.3 Inactive Indigo Yokum LEGS, BILATERAL FLIGHT ENGINEER HYPOKALEMIA, MILD ICD-276.8 Inactive Indigo [place] FLIGHT ENGINEER Diabetes mellitus, ICD-250.02 Inactive Indigo Yokum type II, FLIGHT ENGINEER uncontrolled Sinusitis, ICD-461.1 Inactive Ismael Coyne frontal, acute Amandeep ONEAL Laryngitis, acute ICD-464.00 Inactive Ismael Coyne Amandeep ONEAL Routine ICD-V72.31 Inactive Indigo Y[place]um gynecological FLIGHT ENGINEER examination Postmenopausal ICD-627.1 Inactive Indigo Yokum 2015 bleeding FLIGHT ENGINEER Screening for ICD-V76.51 Inactive Indigo Yokum 2015 malignant FLIGHT ENGINEER neoplasms of colon Establish care or ICD-V68.89 Inactive Indigo Yokum get acquainted FLIGHT ENGINEER visit Weakness, left ICD-342.90 Inactive Indigo Yokum side of body FLIGHT ENGINEER Bronchitis ICD-490 Inactive Indigo [place]um FLIGHT ENGINEER Medication List Medication Instructions Start Stop Generic NDC Status Provider Patient Date Date Name Instruction VESGARETHRE 5 1 tablet SOLIFENACIN 18888639320 Active J Carlos Enrique Active MG TABS daily SUCCINATE Cy ONEAL CIPRO 250 MG 1 tablet 2 CIPROFLOXACIN 56625731056 No Indigo Active TAB by mouth 0 HCL Longer Yokum twice 1 Active FLIGHT ENGINEER daily 7 / 0 1 7 METFORMIN 2 tablets 2 METFORMIN HCL 93274918191 No Indigo Active HCL 500 MG by mouth 0 Longer Yokum TB24 twice 1 Active FLIGHT ENGINEER daily 2 AMARYL 1 MG 1 tablet 2 GLIMEPIRIDE 06755400634 No Indigo Active ORAL TABS orally 0 Longer [place]um twice 1 Active FLIGHT ENGINEER daily 2 NYSTATIN apply to NYSTATIN 68963727247 Active Indigo Active 920822 rash TID Yokum UNIT/GM CREA PRN FLIGHT ENGINEER TROKENDI XR 2 tab TOPIRAMATE 29375950416 Active Maliheh Active 100 MG ORAL daily Ziglari [id number] OUTBOUND SALES REPRESENTATIVE METOPROLOL 1 tab po METOPROLOL 20441378860 Active Indigo Active TARTRATE 25 bid TARTRATE Y[place]um MG TABS FLIGHT ENGINEER AZITHROMYCIN 2 po qd x 2 AZITHROMYCIN 21102951671 No Jillina Active 250 MG TABS 1 day, 0 Longer Frazell then 1 po 1 Active FLIGHT ENGINEER qd x 4 6 days / 0 3 / 2 6 PREDNISONE 2 pills 2 PREDNISONE 56866226350 No Jillina Active 20 MG TAB daily x 4 0 Longer Frazell days 1 Active FLIGHT ENGINEER 6 / 0 3 / 2 5 PIOGLITAZONE take one a PIOGLITAZONE 59450151929 Active Maliheh Active HCL 30 MG day HCL Ziglari ORAL TABS OUTBOUND SALES REPRESENTATIVE JANUVIA 100 1 tablet 2 SITAGLIPTIN 45574775662 No Indigo Active MG TABS by mouth 0 PHOSPHATE Longer Yokum daily 1 Active FLIGHT ENGINEER 6 / 0 2 / 1 6 ATORVASTATIN 1 pill by ATORVASTATIN 50529964837 Active Indigo Active CALCIUM 10 mouth CALCIUM Yokum MG TABS nightly, FLIGHT ENGINEER for cholestero l ASPIRIN 81 1 po qd ASPIRIN 45064744131 Active Indigo Active MG ORAL TABS [place]um FLIGHT ENGINEER NITROFURANTO One 2 NITROFURANTOIN 02997499136 No Indigo Active IN MONOHYD capsule 0 MONOHYD MACRO Longer Yokum MACRO 100 MG BID for 1 Active FLIGHT ENGINEER CAPS UTI 6 / 0 2 / 3 TRAMADOL HCL 1/2 po tid 2 TRAMADOL HCL 13485282922 No Jillina Active 50 MG TABS with ES 0 Longer [place] Tylenol 1 Active FLIGHT ENGINEER prn pain 5 / 0 2 VYVANSE 20 1 tablet 2 LISDEXAMFETAMIN 46766110979 No Jillina Active MG ORAL CAPS daily for 0 E DIMESYLATE Longer [place] binge 1 Active FLIGHT ENGINEER eating 5 disorder / 0 2 LASIX 20 MG 2 tablet FUROSEMIDE 52542792823 Active Indigo Active TAB by mouth [place]um daily FLIGHT ENGINEER CELEBREX 200 1 tablet CELECOXIB 93594372814 Active Indigo Active MG CAPS by mouth [place]um daily with FLIGHT ENGINEER meals PREDNISONE 2 tablets 2 PREDNISONE 96825470056 No Joseph W Active 20 MG TAB today, 0 Longer Farooq DO then 1 1 Active tablet 5 days 2-4 / 0 4 3 DIFLUCAN 100 1 tablet 2 FLUCONAZOLE 19867837042 No Joseph W Active MG TAB by mouth 0 Longer Farooq DO daily x 3 1 Active days 5 / 0 4 / 1 3 DIFLUCAN 100 1 tablet 2 FLUCONAZOLE 78287528667 No Joseph W Active MG TABS by mouth 0 Longer Farooq DO every 1 Active other day 5 for 2 / doses 0 1 / 2 3 ZOFRAN 4 MG 1 po q6hr ONDANSETRON HCL 85797869911 Active Joseph W Active TABS PRN Nausea Farooq DO PREDNISONE 2 tabs 2 PREDNISONE 09878797662 No Joseph W Active 20 MG TAB daily for 0 Longer Farooq DO 3 days, 1 1 Active tab daily 4 for 3 / days, 1/2 1 tab daily 0 for 2 days / 2 5 AMOXICILLIN 2 po BID x 2 AMOXICILLIN 18960320910 No Maite C Active 500 MG CAPS 10 days 0 Longer Madril MD 1 Active PhD 4 0 / 2 0 LISINOPRIL 1 tablet 2 LISINOPRIL 56294319623 No Maite Gutierrez Active 20 MG TABS by mouth 0 Longer Laura ONEAL daily 1 Active PhD 4 0 / 1 0 POTASSIUM 2 capsule 2 POTASSIUM 58047545817 No Joseph W Active CHLORIDE CR by mouth 0 CHLORIDE Longer Farooq DO 10 MEQ CPCR daily 1 Active 4 0 8 / 2 9 SPIRONOLACTO 1 tablet 2 SPIRONOLACTONE 88022076094 No Joseph W Active NE 25 MG TAB by mouth 0 Longer Farooq DO daily 1 Active 4 0 8 / 2 9 METFORMIN 1 tablet 2 METFORMIN HCL 81203873172 No Joseph W Active HCL 500 MG by mouth 0 Longer Farooq DO TABS twice 1 Active daily 4 8 / 2 9 AMARYL 1 MG 1 tab 2 GLIMEPIRIDE 98516748847 No Joseph W Active TABS twice 0 Longer Farooq DO daily 1 Active 4 / 0 8 2 9 PHENTERMINE 1 po q am 2 PHENTERMINE HCL 00952571924 No Joseph W Active HCL 37.5 MG for wt. 0 Longer Farooq DO TABS loss 1 Active 3 / 2 / 2 3 PROMETHAZINE 1 tab by 2 PROMETHAZINE 14025462661 No Joseph W Active HCL 25 MG mouth 0 HCL Longer Farooq DO TABS every 6 1 Active hours as 3 needed / 0 9 / 0 9 CIPROFLOXACI Take one 2 CIPROFLOXACIN 62418123963 No Joseph W Active N HCL 500 MG (1) tablet 0 HCL Longer Farooq DO TABS by mouth 1 Active twice a 3 day / 0 9 / 0 9 ABILIFY 5 MG one p.o. 2 ARIPIPRAZOLE 50402697744 No Joseph W Active TABS q. day 0 Longer Farooq DO 1 Active 3 / 0 9 / 0 9 HYDROCHLOROT 2 tabs 2 HYDROCHLOROTHIA 23521016040 No Joseph W Active HIAZIDE 25 every 0 ZIDE Longer Farooq DO MG TABS morning 1 Active 3 / 0 6 / 2 7 ABILIFY 2 MG 1 po q hs 2 ARIPIPRAZOLE 05238631278 No Joseph W Active TABS for major 0 Longer [facility] depression 1 Active 3 / 0 5 / 0 7 ADIPEX-P 1/2 tab po 2 PHENTERMINE HCL 33896555157 No Casey Active 37.5 MG CAPS q am for 0 Longer [facility] weight 1 Active loss 3 / 0 5 / 0 1 CIPRO 500 MG 1 tablet 2 CIPROFLOXACIN 53246081486 No Casey Active TAB by mouth 0 HCL Longer [facility] twice 1 Active daily 3 / 0 5 / 0 1 NECON 1 po daily 2 NORETHINDRONE-E 44601382740 No Casey Active () 1- 0 ESTRADIOL Longer [facility] MG-MCG TABS 1 Active 3 / 0 5 / 0 1 TRAMADOL HCL 1 po tid 2 TRAMADOL HCL 08582694228 No Casey Active 50 MG TABS with ES 0 Longer [facility] Tylenol 1 Active 3 / 0 5 / 0 1 FLUCONAZOLE one p.o. 2 FLUCONAZOLE 92359406112 No Casey Active 100 MG TABS q. day 2 0 Longer [facility] days 1 Active 3 / 0 5 / 0 1 POTASSIUM 1 capsule 2 POTASSIUM 29746841914 No Casey Active CHLORIDE CR by mouth 0 CHLORIDE Longer [facility] 10 MEQ CPCR daily 1 Active 3 / 0 5 / 0 1 IMIPRAMINE Take 6 IMIPRAMINE HCL 35107420221 Active Indigo Active HCL 50 MG tablets by [place] TABS mouth at FLIGHT ENGINEER bedtime DIFLUCAN 100 1 tablet 2 FLUCONAZOLE 53316498149 No Joseph W Active MG TAB by mouth 0 Longer [facility] daily 1 Active 2 / 0 2 / 2 4 VERAPAMIL 2 po bid VERAPAMIL HCL 59673631852 Active Indigo Active HCL CR 120 Yokum MG TAB CR FLIGHT ENGINEER PERMETHRIN 5 apply neck 2 PERMETHRIN 45824546753 No Joseph W Active % CREA to toes 0 Longer [facility] tonight 1 Active and then 2 rinse off / in 0 morning. 1 repeat at / 7 days 2 0 SEROQUEL XR one p.o. 2 QUETIAPINE 16542905348 No Joseph W Active 50 MG q. evening 0 FUMARATE Longer Farooq DO [id number] 1 Active 2 / 0 1 / 2 0 TRAMADOL HCL 1-2 2 TRAMADOL HCL 22407751776 No Joseph W Active 50 MG TABS tablets 0 Longer Farooq DO every 6-8 1 Active hours as 2 needed for / pain 0 1 / 2 0 ALPRAZOLAM 3 one p.o. ALPRAZOLAM 38450688580 Active Indigo Active MG [id number] q.h.s. [place]um FLIGHT ENGINEER ALPRAZOLAM Take 1 2 ALPRAZOLAM 46099046092 No Joseph W Active XR [id number] tablet by 0 [id number] Longer Farooq DO mouth at 1 Active bedtime 1 / 9 DIFLUCAN 100 1 tablet 2 FLUCONAZOLE 09334858028 No Joseph W Active MG TAB by mouth 0 Longer Farooq DO daily 1 Active 0 / 0 6 AMBIEN 10 MG 1 tab by ZOLPIDEM 11251501725 Active Indigo Active TAB mouth at TARTRATE [place] bedtime as FLIGHT ENGINEER needed for sleep DIFLUCAN 100 1 tablet DIFLUCAN 182728 FLUCONAZOLE Inactive MG TAB by mouth 100 MG TAB daily ALPRAZOLAM Take 1 ALPRAZOLAM ALPRAZOLAM Inactive XR [id number] tablet by XR [id number] mouth at [id number] bedtime TRAMADOL HCL 1-2 TRAMADOL 623353 TRAMADOL HCL Inactive 50 MG TABS tablets HCL 50 MG every 6-8 TABS hours as needed for pain SEROQUEL XR one p.o. SEROQUEL XR QUETIAPINE Inactive 50 MG q. 50 MG FUMARATE [id number] evening [id number] PERMETHRIN 5 apply PERMETHRIN 320833 PERMETHRIN Inactive % CREA neck to 5 % CREA toes tonight and then rinse off in morning. repeat at 7 days DIFLUCAN 100 1 tablet DIFLUCAN 700516 FLUCONAZOLE Inactive MG TAB by mouth 100 MG TAB daily POTASSIUM 1 capsule POTASSIUM POTASSIUM Inactive CHLORIDE CR by mouth CHLORIDE CR CHLORIDE 10 MEQ CPCR daily 10 MEQ CPCR FLUCONAZOLE one p.o. FLUCONAZOLE 001841 FLUCONAZOLE Inactive 100 MG TABS q. day 2 100 MG TABS days TRAMADOL HCL 1 po tid TRAMADOL 546550 TRAMADOL HCL Inactive 50 MG TABS with ES HCL 50 MG Tylenol TABS NECON 1 po NECON NORETHINDRONE- Inactive (28) 1-35 daily () - ETH ESTRADIOL MG-MCG TABS MG-MCG TABS CIPRO 500 MG 1 tablet CIPRO 500 985178 CIPROFLOXACIN Inactive TAB by mouth MG TAB HCL twice daily ADIPEX-P 1/2 tab ADIPEX-P 838410 PHENTERMINE Inactive 37.5 MG CAPS po q am 37.5 MG HCL for CAPS weight loss ABILIFY 2 MG 1 po q hs ABILIFY 2 535408 ARIPIPRAZOLE Inactive TABS for major MG TABS depressio n HYDROCHLOROT 2 tabs HYDROCHLORO 815086 HYDROCHLOROTHI Inactive HIAZIDE 25 every THIAZIDE 25 AZIDE MG TABS morning MG TABS ABILIFY 5 MG one p.o. ABILIFY 5 224027 ARIPIPRAZOLE Inactive TABS q. day MG TABS CIPROFLOXACI Take one CIPROFLOXAC 641801 CIPROFLOXACIN Inactive N HCL 500 MG (1) IN HCL 500 HCL TABS tablet by MG TABS mouth twice a day PROMETHAZINE 1 tab by PROMETHAZIN 314079 PROMETHAZINE Inactive HCL 25 MG mouth E HCL 25 MG HCL TABS every 6 TABS hours as needed PHENTERMINE 1 po q am PHENTERMINE 500329 PHENTERMINE Inactive HCL 37.5 MG for wt. HCL 37.5 MG HCL TABS loss TABS AMARYL 1 MG 1 tab AMARYL 1 MG 19910808 GLIMEPIRIDE Inactive TABS twice TABS daily METFORMIN 1 tablet METFORMIN 759924 METFORMIN HCL Inactive HCL 500 MG by mouth HCL 500 MG TABS twice TABS daily SPIRONOLACTO 1 tablet SPIRONOLACT 191265 SPIRONOLACTONE Inactive NE 25 MG TAB by mouth ONE 25 MG daily TAB POTASSIUM 2 capsule POTASSIUM POTASSIUM Inactive CHLORIDE CR by mouth CHLORIDE CR CHLORIDE 10 MEQ CPCR daily 10 MEQ CPCR LISINOPRIL 1 tablet LISINOPRIL 330343 LISINOPRIL Inactive 20 MG TABS by mouth 20 MG TABS daily DIFLUCAN 100 1 tablet DIFLUCAN 362047 FLUCONAZOLE Inactive MG TABS by mouth 100 MG TABS every other day for 2 doses DIFLUCAN 100 1 tablet DIFLUCAN 336911 FLUCONAZOLE Inactive MG TAB by mouth 100 MG TAB daily x 3 days PREDNISONE 2 tablets PREDNISONE 663431 PREDNISONE Inactive 20 MG TAB today, 20 MG TAB then 1 tablet days 2-4 VYVANSE 20 1 tablet VYVANSE 20 LISDEXAMFETAMI Inactive MG ORAL CAPS daily for MG ORAL NE DIMESYLATE binge CAPS eating disorder TRAMADOL HCL 1/2 po TRAMADOL 728875 TRAMADOL HCL Inactive 50 MG TABS tid [...] TB24 daily AMOXICILLIN 2 po BID AMOXICILLIN 610580 AMOXICILLIN Inactive 500 MG CAPS x 10 days 500 MG CAPS PREDNISONE 2 tabs PREDNISONE 437282 PREDNISONE Inactive 20 MG TAB daily for 20 MG TAB 3 days, 1 tab daily for 3 days, 1/2 tab daily for 2 days NITROFURANTO One NITROFURANT 9521960 NITROFURANTOIN Inactive IN MONOHYD capsule OIN MONOHYD MONOHYD MACRO MACRO 100 MG BID for MACRO 100 CAPS UTI MG CAPS PREDNISONE 2 pills PREDNISONE 917094 PREDNISONE Inactive 20 MG TAB daily x 4 20 MG TAB days AZITHROMYCIN 2 po qd x AZITHROMYCI 0413604 AZITHROMYCIN Inactive 250 MG TABS 1 day, N 250 MG then 1 po TABS qd x 4 days CIPRO 250 MG 1 tablet CIPRO 250 666419 CIPROFLOXACIN Inactive TAB by mouth MG TAB [...] HGBA1C - Chemistry sodium, serum 140 mmol/L 574-779 3531/06/03 potassium, serum 3.9 mmol/L 3.5-5.2 chloride, serum [...] 214 10^3/MM^3 10*3/mm3 142-424 Lab Report: Chlamydia/GC APTIMA/[id number] - Lab chlamydia DNA probe NOT DETECTED NOT DETECTED Lab Report: Chlamydia/GC APTIMA/[id number] - Microbiology Neisseria gonorrhoeae DNA probe NOT DETECTED NOT DETECTED Lab Report: Lipid Panel - Chemistry cholesterol, serum 157 mg/dL 615-998 7673/08/22 triglyceride, serum, fasting 215 mg/dL 30-200 HDL [...] mg/dL Encounters Code Encounter Date Provider Facility CPT-10847 Level 4 New Patient Yury Benoit MD [facility] 15:17:12 CDT CPT-57764 Level 3 Est. Patient [facility]ly [facility] - 13:37:46 CDT [place] CPT-20046 Level 4 Est. Patient [facility] - 10:01:06 CDT [place] CPT-29112 Level 3 Est. Patient [facility] 08:58:07 CDT OUTBOUND SALES REPRESENTATIVE CPT-12329 Level 3 Est. Patient Faby Marino [facility] 14:40:56 CDT [facility] CPT-63737 Level 4 Est. Patient [facility] 17:29:53 CYCLE ANALYST [facility] CPT-30606 Level 4 Est. Patient [facility] 09:51:54 CYCLE ANALYST CPT-89167 Level 3 Est. Patient [facility] 18:59:38 CDT CPT-39889 Level 3 Est. Patient Joseph Edwin [facility] 14:42:12 CDT -[facility] CPT-87311 Level 3 Est. Patient Joseph Pineda [facility] 22:18:20 CDT -[facility] CPT-47744 Level 3 Est. Patient Joseph Pineda [facility] 16:46:04 CDT -[facility] CPT-69201 Level 3 Est. Patient Joseph [facility] 15:39:53 CDT -[facility] CPT-24774 Level 3 Est. Patient Maite Sanchez MD [facility] 13:33:34 CDT -[facility] CPT-33940 Level 3 Est. Patient Joseph Edwin [facility] 11:37:08 CDT -[facility] CPT-34353 Level 3 Est. Patient [place] [facility] 17:13:29 CYCLE ANALYST -[facility] CPT-82037 Level 3 Est. Patient Joseph Edwin [facility] 18:42:44 CDT CPT-99483 Level 3 Est. Patient [place] [facility] 16:25:39 CDT CPT-55050 Level 3 Est. Patient Casey Brower [facility] 09:52:45 CDT -[facility] CPT-90677 Level 3 Est. Patient Joseph Pineda [facility] 11:03:29 CYCLE ANALYST -[facility] CPT-71095 Level 3 Est. Patient Joseph [facility] 11:03:08 CYCLE ANALYST -[facility] CPT-83724 Level 3 Est. Patient Joseph Edwin [facility] 14:33:31 CDT -[facility] CPT-65208 Level 3 Est. Patient Joseph Edwin [facility] 17:05:02 CYCLE ANALYST -[facility] CPT-52026 Level 3 Est. Patient [facility] 17:48:06 CYCLE ANALYST -[facility] CPT-11071 Level 3 Est. Patient Joseph Trivedi [facility] 14:59:22 CYCLE ANALYST -C CPT-79925 Level 3 Est. Patient Joseph Trivedi [facility] - 21:45:56 CYCLE ANALYST [place] [facility] CPT-24649 Level 3 Est. Patient Joseph Trivedi [facility] 21:29:50 CDT -[facility] CPT-62667 Level 3 Est. Patient Joseph Trivedi [facility] 12:41:09 CDT -[facility] Procedures Code Procedure Name Date Entry Date Standard Description CPT-37165 Wet [place] - LAB USE ONLY 12:39:03 CYCLE ANALYST CPT-14503 Vaginal Culture - LAB USE ONLY 12:39:03 CYCLE ANALYST CPT-50004 Urine Culture - LAB USE ONLY 11:52:44 CYCLE ANALYST CPT-65879 UA w micro - LAB USE ONLY 11:52:44 CYCLE ANALYST CPT-13371 Postop F/U Visit 12:08:35 CDT CPT-63332 Postop F/U Visit 18:20:10 CDT CPT-A4351 [place] Female Cath 09:37:10 CDT CPT-40232 Urine Dip (Floor Use Only) 15:17:13 CDT CPT-42076 Dil F ureth int 15:17:13 CDT CPT-09071 Venipuncture Draw Fee 09:19:08 CDT CPT-27183 Lipid - LAB USE ONLY 09:19:07 CDT CPT-JTINJ Asp/Joint Injection 09:26:49 CDT CPT-75775 Chest 2V Frontal and Lat 14:47:43 CDT CPT-JTINJ Asp/Joint Injection 09:51:53 CYCLE ANALYST CPT-OV Office Visit 17:39:05 CDT CPT-OV Office Visit 15:19:50 CDT CPT-81823 Sono transvag pelvis non OB uterus ovaries cervix 18:04:34 CDT CPT-30095 Venipuncture Draw Fee 08:55:49 CYCLE ANALYST
--- OUTSIDE RECORDS SUMMARY | 2016-11-20 13:28 | External Medical Summary | Clinical Summary ---
:[address] [facility] Address [address] [address] Phone Allergies, Adverse Reactions, Alerts Allergy Name Reaction Description Start Date Severity Status Provider NKDA Critical Active Indigomikayla Jordanum SCREEDMAN/LABORER NKDA Critical No Longer Indigo Yokum SCREEDMAN/LABORER Active NKDA Critical Inactive Adrianna Elder Conditions [...] Resolved Indigo Other malaise 05/24 07/02 Yokum SCREEDMAN/LABORER and fatigue SLEEP APNEA, 327.23 Active Joseph Pineda Obstructive OBSTRUCTIVE, 06/27 06/27 Farooq DO sleep apnea MILD (adult) (pediatric) OVERWEIGHT 278.02 Inactive Joseph Pineda Overweight 06/28 06/28 Farooq DO Obesity 278.00 Active Indigo Obesity, 06/28 10/18 Yokum SCREEDMAN/LABORER unspecified OTH GENERAL V70.3 Resolved Maite Gutierrez Other general MEDICAL Laura ONEAL medical EXAMINATION PhD examination for ADMIN PURPOSES administrative purposes OTHER ABNORMAL 790.29 Resolved Maite C Other abnormal GLUCOSE 05/20 Laura ONEAL glucose PhD ACUTE 466.0 Resolved Maite C Acute BRONCHITIS 09/02 Laura ONEAL bronchitis PhD DEPENDENT 782.3 Resolved Indigo Edema EDEMA, LEGS, 10/29 10/18 Yokum SCREEDMAN/LABORER BILATERAL HYPOKALEMIA, 276.8 Resolved Indiog Hypopotassemia MILD 10/29 07/02 Youm SCREEDMAN/LABORER Diabetes, Type 250.00 Inactive Joseph Pineda Diabetes 2 06/27 06/27 Farooq DO mellitus without mention of complication, type II or unspecified type, not stated as uncontrolled Diabetes 250.02 Resolved Indigo Diabetes mellitus, type 06/27 SCREEDMAN/LABORER mellitus II, without mention uncontrolled of complication, type II or unspecified type, uncontrolled Health V70.0 Active Joseph Pineda Routine general screening 01/17 01/17 Farooq DO medical examination at a health care facility Sinusitis, 461.1 Resolved Ismael Coyne Acute frontal frontal, acute 012/26 Amandeep sinusitis Laryngitis, 464.00 Resolved Ismael Coyne Acute acute 12/26 Amandeep laryngitis without mention of obstruction Binge eating 307.51 Active Joseph Pnieda Bulimia nervosa disorder 08/15 08/15 Farooq DO Routine V72.31 Resolved Indigo Routine gynecological 12/14 07/02 Yo SCREEDMAN/LABORER gynecological examination examination Postmenopausal 627.1 Resolved Indigo Postmenopausal bleeding 12/14 SCREEDMAN/LABORER bleeding Screening for V76.51 Resolved Indigo Screening for malignant 12/26 07/02 Yokum SCREEDMAN/LABORER malignant neoplasms of neoplasms of colon colon Insomnia, 307.42 Active Indigo 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/LABORER disorder of initiating or maintaining sleep Establish care V68.89 Resolved Indigo Encounters for or get 01/16 07/02 Yo SCREEDMAN/LABORER other specified acquainted administrative visit purpose Weakness, left 342.90 Resolved Indigo Hemiplegia, side of body 06/20 10/18 Yokum SCREEDMAN/LABORER unspecified, affecting unspecified side TIA 435.9 Active Indigo Unspecified 06/20 07/02 Yokum SCREEDMAN/LABORER transient cerebral ischemia Knee pain, 719.46 Active Indigo Pain in joint bilateral 06/20 10/18 Yokum SCREEDMAN/LABORER involving lower leg Bronchitis 490 Resolved Indigo Bronchitis, not 07/23 10/18 Yokum SCREEDMAN/LABORER specified as acute or chronic Diabetes 357.2 Active Maliheh Polyneuropathy mellitus, 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 ADVISOR 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y Knee pain, 719.46 Active Indigo Pain in joint right 06/20 10/18 Yokum SCREEDMAN/LABORER involving lower leg Jesi 112.3 Active Indigo Candidiasis of intertrigo 10/09 10/18 Yokum SCREEDMAN/LABORER skin and nails ABNORMAL VAGINAL ICD-626.9 Inactive Maite Sanchez BLEEDING MD PhD SCABIES ICD-133.0 Inactive Maite Sanchez PhD FATIGUE ICD-780.79 Inactive Indigo Yokum SCREEDMAN/LABORER OTH GENERAL ICD-V70.3 Inactive Maite Sanchez MEDICAL PhD EXAMINATION ADMIN PURPOSES OTHER ABNORMAL ICD-790.29 Inactive Maite Sanchez GLUCOSE PhD ACUTE BRONCHITIS ICD-466.0 Inactive Maite Sanchez PhD DEPENDENT EDEMA, ICD-782.3 Inactive Indigo Yokum LEGS, BILATERAL SCREEDMAN/LABORER HYPOKALEMIA, MILD ICD-276.8 Inactive Indigo Yokum SCREEDMAN/LABORER Diabetes mellitus, ICD-250.02 Inactive Indigo Yokum type II, SCREEDMAN/LABORER uncontrolled Sinusitis, ICD-461.1 Inactive Ismael Coyne frontal, acute Amandeep ONEAL Laryngitis, acute ICD-464.00 Inactive Ismael Coyne Amandeep ONEAL Routine ICD-V72.31 Inactive Indigo Yokum gynecological SCREEDMAN/LABORER examination Postmenopausal ICD-627.1 Inactive Indigo Yokum 2015 bleeding SCREEDMAN/LABORER Screening for ICD-V76.51 Inactive Indigo Yokum 2015 malignant SCREEDMAN/LABORER neoplasms of colon Establish care or ICD-V68.89 Inactive Indigo Yokum get acquainted SCREEDMAN/LABORER visit Weakness, left ICD-342.90 Inactive Indigo Yokum side of body SCREEDMAN/LABORER Bronchitis ICD-490 Inactive Indigo Yokum SCREEDMAN/LABORER Medication List Medication Instructions Start Stop Generic NDC Status Provider Patient Date Date Name Instruction NYSTATIN apply to NYSTATIN [id number] Active Indigo Active 460405 UNIT/GM rash TID Yokum CREA PRN SCREEDMAN/LABORER TROKENDI XR 2 tab daily TOPIRAMATE 08359898022 Active Maliheh Active 100 MG ORAL Ziglari [id number] RETAIL ADVISOR METOPROLOL 1 tab po METOPROLOL 86934093436 Active Indigo Active TARTRATE 25 MG bid TARTRATE Yokum TABS SCREEDMAN/LABORER AZITHROMYCIN 2 po qd x 1 2 AZITHROMYCIN 79216699422 No Jillina Active 250 MG TABS day, then 1 0 Longer [place] po qd x 4 1 Active SCREEDMAN/LABORER days 6 / 0 3 / 2 6 PREDNISONE 20 2 pills 2 PREDNISONE 17119412400 No Jillina Active MG TAB daily x 4 0 Longer [place] days 1 Active SCREEDMAN/LABORER 6 / 0 3 / 2 5 PIOGLITAZONE take one a PIOGLITAZONE 10054637056 Active Maliheh Active HCL 30 MG ORAL day HCL Ziglari TABS RETAIL ADVISOR JANUVIA 100 MG 1 tablet by 2 SITAGLIPTIN 84343166756 No Indigo Active TABS mouth daily 0 PHOSPHATE Longer Yokum 1 Active SCREEDMAN/LABORER 6 / 0 2 / 6 ATORVASTATIN 1 pill by ATORVASTATIN 18649105485 Active Indigo Active CALCIUM 10 MG mouth CALCIUM Yokum TABS nightly, SCREEDMAN/LABORER for cholesterol ASPIRIN 81 MG 1 po qd ASPIRIN 91225514715 Active Indigo Active ORAL TABS Yokum SCREEDMAN/LABORER NITROFURANTOIN One capsule 2 NITROFURANTOI 44557664924 No Indigo Active MONOHYD MACRO BID for UTI 0 N MONOHYD Longer Yokum 100 MG CAPS 1 MACRO Active SCREEDMAN/LABORER 6 / 0 / 3 METFORMIN HCL 2 tablets METFORMIN HCL 81502219208 Active Indigo Active 500 MG TB24 by mouth Yokum twice daily SCREEDMAN/LABORER TRAMADOL HCL 1/2 po tid 2 TRAMADOL HCL 49031727163 No Jillina Active 50 MG TABS with ES 0 Longer [place] Tylenol prn 1 Active SCREEDMAN/LABORER pain 5 / 0 2 VYVANSE 20 MG 1 tablet 2 LISDEXAMFETAM 95946031485 No Jillina Active ORAL CAPS daily for 0 INE Longer [place] binge 1 DIMESYLATE Active SCREEDMAN/LABORER eating 5 disorder / 0 2 LASIX 20 MG 2 tablet by FUROSEMIDE 45469366651 Active Indigo Active TAB mouth daily Yokum SCREEDMAN/LABORER CELEBREX 200 1 tablet by CELECOXIB 63806825026 Active Indigo Active MG CAPS mouth daily Yokum with meals SCREEDMAN/LABORER PREDNISONE 20 2 tablets 2 PREDNISONE 35147905217 No Joseph W Active MG TAB today, then 0 Longer Farooq DO 1 tablet 1 Active days 2-4 5 / 0 3 DIFLUCAN 100 1 tablet by 2 FLUCONAZOLE 11425858624 No Joseph W Active MG TAB mouth daily 0 Longer Farooq DO x 3 days 1 Active 5 / 0 4 / 3 AMARYL 1 MG 1 tablet GLIMEPIRIDE 08590839525 Active Indigo Active ORAL TABS orally Yokum twice daily SCREEDMAN/LABORER DIFLUCAN 100 1 tablet by 2 FLUCONAZOLE 00983972518 No Joseph W Active MG TABS mouth every 0 Longer Farooq DO other day 1 Active for 2 doses 5 / 0 1 / 2 3 ZOFRAN 4 MG 1 po q6hr ONDANSETRON 61654691554 Active Joseph W Active TABS PRN Nausea HCL Farooq DO PREDNISONE 20 2 tabs 2 PREDNISONE 01435947748 No Joseph W Active MG TAB daily for 3 0 Longer Farooq DO days, 1 tab 1 Active daily for 3 4 days, 1/2 / tab daily 1 for 2 days 0 / 2 5 AMOXICILLIN 2 po BID x 2 AMOXICILLIN 19923035622 No Maite C Active 500 MG CAPS 10 days 0 Longer Madril 1 Active PhD 0 / 2 0 LISINOPRIL 20 1 tablet by 2 LISINOPRIL 17858662617 No Maite C Active MG TABS mouth 0 Longer Madril daily 1 Active PhD 0 / 0 POTASSIUM 2 capsule 2 POTASSIUM 51317998165 No Joseph W Active CHLORIDE CR 10 by mouth 0 CHLORIDE Longer Farooq DO MEQ CPCR daily 1 Active 4 / 0 8 / 2 9 SPIRONOLACTONE 1 tablet by 2 SPIRONOLACTON 84967417760 No Joseph W Active 25 MG TAB mouth daily 0 E Longer Farooq DO 1 Active 4 / 0 8 / 2 9 METFORMIN HCL 1 tablet 2 METFORMIN HCL 08552456579 No Joseph W Active 500 MG TABS by mouth 0 Longer Farooq DO twice daily 1 Active 4 / 0 8 / 2 9 AMARYL 1 MG 1 tab twice 2 GLIMEPIRIDE 61014573205 No Joseph W Active TABS daily 0 Longer Farooq DO 1 Active 4 / 0 8 / 2 9 PHENTERMINE 1 po q am 2 PHENTERMINE 54884117127 No Joseph W Active HCL 37.5 MG for wt. 0 HCL Longer Farooq DO TABS loss 1 Active / 2 / 2 3 PROMETHAZINE 1 tab by 2 PROMETHAZINE 62796908678 No Joseph W Active HCL 25 MG TABS mouth every 0 HCL Longer Farooq DO 6 hours as 1 Active needed 3 / 0 9 / 0 9 CIPROFLOXACIN Take one 2 CIPROFLOXACIN 64300373888 No Joseph W Active HCL 500 MG (1) tablet 0 HCL Longer Farooq DO TABS by mouth 1 Active twice a day 3 / 0 9 / 0 9 ABILIFY 5 MG one p.o. q. 2 ARIPIPRAZOLE 05531084825 No Joseph W Active TABS day 0 Longer Farooq DO 1 Active 3 / 0 9 / 0 9 HYDROCHLOROTHI 2 tabs 2 HYDROCHLOROTH 71750381010 No Joseph W Active AZIDE 25 MG every 0 IAZIDE Longer Farooq DO TABS morning 1 Active 3 / 0 6 / 2 7 ABILIFY 2 MG 1 po q hs 2 ARIPIPRAZOLE 96363557160 No Joseph W Active TABS for major 0 Longer Farooq DO depression 1 Active 3 / 0 5 / 0 7 ADIPEX-P 37.5 1/2 tab po 2 PHENTERMINE 98201247571 No Casey Active MG CAPS q am for 0 HCL Longer [place] weight loss 1 Active PA 3 / 0 5 / 0 1 CIPRO 500 MG 1 tablet by 2 CIPROFLOXACIN 66219857103 No Casey Active TAB mouth twice 0 HCL Longer [place] daily 1 Active PA 3 / 0 5 / 0 1 NECON 1/35 1 po daily 2 NORETHINDRONE 11793296273 No Casey Active (28) 1-35 0 -ETH Longer [place] MG-MCG TABS 1 ESTRADIOL Active PA 3 / 0 5 / 0 1 TRAMADOL HCL 1 po tid 2 TRAMADOL HCL 50912491666 No Casey Active 50 MG TABS with ES 0 Longer [place] Tylenol 1 Active PA 3 / 0 5 / 0 1 FLUCONAZOLE one p.o. q. 2 FLUCONAZOLE 55179575765 No Casey Active 100 MG TABS day 2 days 0 Longer [place] 1 Active PA 3 / 0 5 / 0 1 POTASSIUM 1 capsule 2 POTASSIUM 50835806510 No Casey Active CHLORIDE CR 10 by mouth 0 CHLORIDE Longer Leonarda MEQ CPCR daily 1 Active PA 3 / 0 5 / 0 1 IMIPRAMINE HCL Take 6 IMIPRAMINE 62350418931 Active Indigo Active 50 MG TABS tablets by HCL Yokum mouth at SCREEDMAN/LABORER bedtime DIFLUCAN 100 1 tablet by 2 FLUCONAZOLE 35704999010 No Joseph W Active MG TAB mouth daily 0 Longer Farooq DO 1 Active 2 / 0 2 / 2 4 VERAPAMIL HCL 2 po bid VERAPAMIL HCL 53854793779 Active Indigo Active CR 120 MG TAB Yokum CR SCREEDMAN/LABORER PERMETHRIN 5 % apply neck 2 PERMETHRIN 04461395004 No Joseph W Active CREA to toes 0 Longer Farooq DO tonight and 1 Active then rinse 2 off in / morning. 0 repeat at 7 1 days / 2 0 SEROQUEL XR 50 one p.o. q. 2 QUETIAPINE 40736672698 No Joseph W Active MG [id number] evening 0 FUMARATE Longer Farooq DO 1 Active 2 / 0 1 / 2 0 TRAMADOL HCL 1-2 tablets 2 TRAMADOL HCL 82393523348 No Joseph W Active 50 MG TABS every 6-8 0 Longer Farooq DO hours as 1 Active needed for 2 pain / 0 1 / 2 0 ALPRAZOLAM 3 one p.o. ALPRAZOLAM 74067818663 Active Indigo Active MG [id number] q.h.s. Yokum SCREEDMAN/LABORER ALPRAZOLAM XR Take 1 2 ALPRAZOLAM 31462243627 No Joseph W Active [id number] tablet by 0 [id number] Longer Farooq DO mouth at 1 Active bedtime 1 / 2 9 DIFLUCAN 100 1 tablet by 2 FLUCONAZOLE 56166676411 No Joseph W Active MG TAB mouth daily 0 Longer Farooq DO 1 Active 0 / 0 6 AMBIEN 10 MG 1 tab by ZOLPIDEM 99509338940 Active Indigo Active TAB mouth at TARTRATE Yokum bedtime as SCREEDMAN/LABORER needed for sleep DIFLUCAN 100 1 tablet DIFLUCAN 982572 FLUCONAZOLE Inactive MG TAB by mouth 100 MG TAB daily ALPRAZOLAM Take 1 ALPRAZOLAM ALPRAZOLAM Inactive XR [id number] tablet by XR [id number] mouth at [id number] bedtime TRAMADOL HCL 1-2 TRAMADOL 574645 TRAMADOL HCL Inactive 50 MG TABS tablets HCL 50 MG every 6-8 TABS hours as needed for pain SEROQUEL XR one p.o. SEROQUEL XR QUETIAPINE Inactive 50 MG q. 50 MG FUMARATE [id number] evening [id number] PERMETHRIN 5 apply PERMETHRIN 511576 PERMETHRIN Inactive % CREA neck to 5 % CREA toes tonight and then rinse off in morning. repeat at 7 days DIFLUCAN 100 1 tablet DIFLUCAN 945057 FLUCONAZOLE Inactive MG TAB by mouth 100 MG TAB daily POTASSIUM 1 capsule POTASSIUM POTASSIUM Inactive CHLORIDE CR by mouth CHLORIDE CR CHLORIDE 10 MEQ CPCR daily 10 MEQ CPCR FLUCONAZOLE one p.o. FLUCONAZOLE 19760111 FLUCONAZOLE Inactive 100 MG TABS q. day 2 100 MG TABS days TRAMADOL HCL 1 po tid TRAMADOL 053505 TRAMADOL HCL Inactive 50 MG TABS with ES HCL 50 MG Tylenol TABS NECON 1/35 1 po NECON 1/35 NORETHINDRONE- Inactive (28) 1-35 daily (28) 1-35 ETH ESTRADIOL MG-MCG TABS MG-MCG TABS CIPRO 500 MG 1 tablet CIPRO 500 933971 CIPROFLOXACIN Inactive TAB by mouth MG TAB HCL twice daily ADIPEX-P 1/2 tab ADIPEX-P 888195 PHENTERMINE Inactive 37.5 MG CAPS po q am 37.5 MG HCL for CAPS weight loss ABILIFY 2 MG 1 po q hs ABILIFY 2 069311 ARIPIPRAZOLE Inactive TABS for major MG TABS depressio n HYDROCHLOROT 2 tabs HYDROCHLORO 354337 HYDROCHLOROTHI Inactive HIAZIDE 25 every THIAZIDE 25 AZIDE MG TABS morning MG TABS ABILIFY 5 MG one p.o. ABILIFY 5 840773 ARIPIPRAZOLE Inactive TABS q. day MG TABS CIPROFLOXACI Take one CIPROFLOXAC 911643 CIPROFLOXACIN Inactive N HCL 500 MG (1) IN HCL 500 HCL TABS tablet by MG TABS mouth twice a day PROMETHAZINE 1 tab by PROMETHAZIN 448617 PROMETHAZINE Inactive HCL 25 MG mouth E HCL 25 MG HCL TABS every 6 TABS hours as needed PHENTERMINE 1 po q am PHENTERMINE 637295 PHENTERMINE Inactive HCL 37.5 MG for wt. HCL 37.5 MG HCL TABS loss TABS AMARYL 1 MG 1 tab AMARYL 1 MG 836507 GLIMEPIRIDE Inactive TABS twice TABS daily METFORMIN 1 tablet METFORMIN 446596 METFORMIN HCL Inactive HCL 500 MG by mouth HCL 500 MG TABS twice TABS daily SPIRONOLACTO 1 tablet SPIRONOLACT 761212 SPIRONOLACTONE Inactive NE 25 MG TAB by mouth ONE 25 MG daily TAB POTASSIUM 2 capsule POTASSIUM POTASSIUM Inactive CHLORIDE CR by mouth CHLORIDE CR CHLORIDE 10 MEQ CPCR daily 10 MEQ CPCR LISINOPRIL 1 tablet LISINOPRIL 226360 LISINOPRIL Inactive 20 MG TABS by mouth 20 MG TABS daily DIFLUCAN 100 1 tablet DIFLUCAN 878611 FLUCONAZOLE Inactive MG TABS by mouth 100 MG TABS every other day for 2 doses DIFLUCAN 100 1 tablet DIFLUCAN 496882 FLUCONAZOLE Inactive MG TAB by mouth 100 MG TAB daily x 3 days PREDNISONE 2 tablets PREDNISONE 696519 PREDNISONE Inactive 20 MG TAB today, 20 MG TAB then 1 tablet days 2-4 VYVANSE 20 1 tablet VYVANSE 20 LISDEXAMFETAMI Inactive MG ORAL CAPS daily for MG ORAL NE DIMESYLATE binge CAPS eating disorder TRAMADOL HCL 1/2 po TRAMADOL 383302 TRAMADOL HCL Inactive 50 MG TABS tid with HCL 50 MG ES TABS Tylenol prn pain JANUVIA 100 1 tablet JANUVIA 100 SITAGLIPTIN Inactive MG TABS by mouth MG TABS PHOSPHATE daily AMOXICILLIN 2 po BID AMOXICILLIN 016816 AMOXICILLIN Inactive 500 MG CAPS x 10 days 500 MG CAPS PREDNISONE 2 tabs PREDNISONE 125198 PREDNISONE Inactive 20 MG TAB daily for 20 MG TAB 3 days, 1 tab daily for 3 days, 1/2 tab daily for 2 days NITROFURANTO One NITROFURANT 7185495 NITROFURANTOIN Inactive IN MONOHYD capsule OIN MONOHYD MONOHYD MACRO MACRO 100 MG BID for MACRO 100 CAPS UTI MG CAPS PREDNISONE 2 pills PREDNISONE 368734 PREDNISONE Inactive 20 MG TAB daily x 4 20 MG TAB days AZITHROMYCIN 2 po qd x AZITHROMYCI 1980013 AZITHROMYCIN Inactive 250 MG TABS 1 day, [...] HGBA1C - Chemistry sodium, serum 140 mmol/L 641-172 9094/06/03 potassium, serum 3.9 mmol/L 3.5-5.2 chloride, serum [...] 198 10^3/MM^3 10*3/mm3 142-424 Lab Report: Chlamydia/GC APTIMA/[id number] - Lab chlamydia DNA probe NOT DETECTED NOT DETECTED Lab Report: Chlamydia/GC APTIMA/[id number] - Microbiology Neisseria gonorrhoeae DNA probe NOT DETECTED NOT DETECTED Lab Report: Comp. Metabolic Panel, Lipid Panel - Chemistry sodium, serum 136 mmol/L 985-196 9241/01/04 carbon dioxide, venous blood 27.0 mmol/L 21.0-32.0 potassium, serum 4.6 mmol/L 3.5-5.2 chloride, serum 98 mmol/L 98-107 blood glucose 174 mg/dL 65-110 urea nitrogen, blood 12 mg/dL 7-18 creatinine, serum 0.78 mg/dL 0.55-1.30 alanine aminotransferase (SGPT), serum 65 U/L 12-78 aspartate aminotransferase (SGOT), serum 34 U/L 15-37 calcium, serum 8.9 mg/dL 8.5-10.1 bilirubin, serum, total 0.40 mg/dL 0.00-1.00 cholesterol, serum 219 mg/dL 770-307 8849/01/04 triglyceride, serum, fasting 214 mg/dL 30-200 HDL [...] mg/g mg/g{creat} 0-29 sodium, serum 140 mmol/L 463-921 5732/07/21 potassium, serum 3.9 mmol/L 3.5-5.2 chloride, serum [...] mg/dL Encounters Code Encounter Date Provider Facility CPT-85811 Level 4 Est. Patient Indigo Sexton [facility] - 10:01:06 CDT [place] CPT-90891 Level [address] Est. [address] [facility] 08:58:07 CDT RETAIL ADVISOR CPT-55413 Level [address] [facility] 14:40:56 CDT SCREEDMAN/LABORER CPT-49212 Level 4 Est. [address] [facility] 17:29:53 SEAT INSTALLER RETAIL ADVISOR CPT-60784 Level 4 Est. Patient Indigo Sexton [facility] 09:51:54 SEAT INSTALLER CPT-00028 Level 3 Est. Patient Indigo Sexton [facility] 18:59:38 CDT CPT-60540 Level 3 Est. Patient Joseph Pineda [facility] 14:42:12 CDT -[facility] CPT-47148 Level 3 Est. Patient Joseph Pineda [facility] 22:18:20 CDT -RHC CPT-92189 Level 3 Est. Patient Joseph Pineda [facility] 16:46:04 CDT -RHC CPT-18993 Level 3 Est. Patient [place] Edwin [facility] 15:39:53 CDT -RHC CPT-93032 Level 3 Est. Patient Maite Sanchez MD [facility] 13:33:34 CDT -RHC CPT-03614 Level 3 Est. Patient Joseph Pineda [facility] 11:37:08 CDT -RHC CPT-78312 Level 3 Est. Patient Joseph Pineda [facility] 17:13:29 SEAT INSTALLER -RHC CPT-01471 Level 3 Est. Patient Joseph Pineda [facility] 18:42:44 CDT CPT-19391 Level 3 Est. Patient Joseph Pineda [facility] 16:25:39 CDT CPT-04099 Level 3 Est. Patient Casey ARCHIBALD [facility] 09:52:45 CDT -RHC CPT-28857 Level 3 Est. Patient Joseph Pineda [facility] 11:03:29 SEAT INSTALLER -RHC CPT-03756 Level 3 Est. Patient Joseph Edwin [facility] 11:03:08 SEAT INSTALLER -RHC CPT-70228 Level 3 Est. Patient Joseph Pineda [facility] 14:33:31 CDT -RHC CPT-40597 Level 3 Est. Patient Joseph Pineda [facility] 17:05:02 SEAT INSTALLER -RHC CPT-53900 Level 3 Est. Patient Joseph Pineda [facility] 17:48:06 SEAT INSTALLER -RHC CPT-08427 Level 3 Est. Patient Joseph Pineda [facility] 14:59:22 SEAT INSTALLER -RHC CPT-73388 Level 3 Est. Patient Joseph Pineda [facility] - 21:45:56 SEAT INSTALLER Real RHC CPT-12849 Level 3 Est. Patient Joseph Pineda [facility] 21:29:50 CDT -RHC CPT-44165 Level 3 Est. Patient Joseph Pineda [facility] 12:41:09 CDT -RHC Procedures Code Procedure Name Date Entry Date Standard Description CPT-JTINJ Asp/Joint Injection 09:26:49 CDT CPT-31610 Chest 2V Frontal and Lat 14:47:43 CDT CPT-JTINJ Asp/Joint Injection 09:51:53 SEAT INSTALLER CPT-OV Office Visit 17:39:05 CDT CPT-OV Office Visit 15:19:50 CDT CPT-08921 Sono transvag pelvis non OB uterus ovaries cervix 18:04:34 CDT CPT-72104 Venipuncture Draw Fee 08:55:49 SEAT INSTALLER
--- OUTSIDE RECORDS SUMMARY | 2016-11-20 13:29 | External Medical Summary | Clinical Summary ---
:1965 Author Organization [facility] Address [address] [place] [address] Phone Allergies, Adverse Reactions, Alerts Allergy Name Reaction Description Start Date Severity Status Provider No Known Allergies Anne Neil Ashlyn Conditions or Problems Problem Name Problem Onset [...] Name Instruction VYVANSE 20 1 tablet LISDEXAMFETAMINE 47506029221 Active Joseph Pineda Active MG ORAL daily for DIMESYLATE Farooq DO CAPS binge eating disorder METFORMIN 2 tablet METFORMIN HCL 38899946419 Active Joseph Pineda Active HCL 500 MG daily for Farooq DO TB24 blood sugars LASIX 20 2 tablet by FUROSEMIDE 14623590495 Active Joseph Pineda Active MG TAB mouth daily Farooq DO CELEBREX 1 tablet by CELECOXIB 80039274658 Active Joseph Pineda Active 200 MG mouth daily Farooq DO CAPS with meals PREDNISONE 2 tablets 2 PREDNISONE 60118902354 No Joseph Pineda Active 20 MG TAB today, then 0 Longer Farooq DO 1 tablet 1 Active days 2-4 5 / 0 4 / 3 DIFLUCAN 1 tablet by 2 FLUCONAZOLE 32046721387 No Joseph W Active 100 MG TAB mouth daily 0 Longer Farooq DO x 3 days 1 Active 5 / 0 4 / 3 AMARYL 1 1 tablet GLIMEPIRIDE 32275397581 Active Joseph Pineda Active MG ORAL orally Farooq DO TABS twice daily DIFLUCAN 1 tablet by 2 FLUCONAZOLE 70944556025 No Joseph W Active 100 MG mouth every 0 Longer Farooq DO TABS other day 1 Active for 2 doses 5 / 0 1 / 2 3 ZOFRAN 4 1 po q6hr ONDANSETRON HCL 47288728114 Active Joseph Pineda Active MG TABS PRN Nausea Farooq DO PREDNISONE 2 tabs 2 PREDNISONE 08553620284 No Joseph Pineda Active 20 MG TAB daily for 3 0 Longer Farooq DO days, 1 tab 1 Active daily for 3 4 days, 1/2 / tab daily 1 for 2 days 0 / 2 5 TRAMADOL 1/2 po tid TRAMADOL HCL 16460232955 Active Joseph Pineda Active HCL 50 MG with ES Farooq DO TABS Tylenol prn pain AMOXICILLI 2 po BID x 2 AMOXICILLIN 40042172450 No Maite C Active N 500 MG 10 days 0 Longer Madril CAPS 1 Active PhD 0 / 2 0 LISINOPRIL 1 tablet by 2 LISINOPRIL 87733405988 No Maite C Active 20 MG TABS mouth 0 Longer Madril daily 1 Active PhD 0 / 1 0 POTASSIUM 2 capsule 2 POTASSIUM CHLORIDE 70017943423 No Joseph Pineda Active CHLORIDE by mouth 0 Longer Farooq DO CR 10 MEQ daily 1 Active CPCR 8 2 9 SPIRONOLAC 1 tablet by 2 SPIRONOLACTONE 83878975142 No Joseph Pineda Active TONE 25 MG mouth daily 0 Longer Farooq DO TAB 1 Active 4 / 0 8 / 2 9 METFORMIN 1 tablet 2 METFORMIN HCL 55710398482 No Joseph Pineda Active HCL 500 MG by mouth 0 Longer Farooq DO TABS twice daily 1 Active 4 / 0 8 / 2 9 AMARYL 1 1 tab twice 2 GLIMEPIRIDE 84708433469 No Joseph W Active MG TABS daily 0 Longer Farooq DO 1 Active 4 / 0 8 / 2 9 PHENTERMIN 1 po q am 2 PHENTERMINE HCL 21527809567 No Joseph W Active E HCL 37.5 for wt. 0 Longer Farooq DO MG TABS loss 1 Active 3 / 1 2 / 2 3 PROMETHAZI 1 tab by 2 PROMETHAZINE HCL 67124275867 No Joseph W Active NE HCL 25 mouth every 0 Longer Farooq DO MG TABS 6 hours as 1 Active needed 3 / 0 9 / 0 9 CIPROFLOXA Take one 2 CIPROFLOXACIN HCL 12227036016 No Joseph W Active DELORES HCL (1) tablet 0 Longer Farooq DO 500 MG by mouth 1 Active TABS twice a day 3 / 0 9 / 0 9 ABILIFY 5 one p.o. q. 2 ARIPIPRAZOLE 16369175904 No Joseph W Active MG TABS day 0 Longer Farooq DO 1 Active 3 / 0 9 / 0 9 HYDROCHLOR 2 tabs 2 HYDROCHLOROTHIAZID 60787480641 No Joseph W Active OTHIAZIDE every 0 E Longer Farooq DO 25 MG TABS morning 1 Active 3 / 0 6 / 2 7 ABILIFY 2 1 po q hs 2 ARIPIPRAZOLE 08302263777 No Joseph W Active MG TABS for major 0 Longer Farooq DO depression 1 Active 3 / 0 5 / 0 7 ADIPEX-P 1/2 tab po 2 PHENTERMINE HCL 22540384583 No Casey Active 37.5 MG q am for 0 Longer [place] CAPS weight loss 1 Active PA 3 / 0 5 / 0 1 CIPRO 500 1 tablet by 2 CIPROFLOXACIN HCL 64155100915 No Casey Active MG TAB mouth twice 0 Longer [place] daily 1 Active PA 3 / 0 5 / 0 1 NECON 1/35 1 po daily 2 NORETHINDRONE-ETH 73481517990 No Casey Active (28) 1-35 0 ESTRADIOL Longer Leonard[place] MG-MCG 1 Active PA TABS 3 / 0 5 / 0 1 TRAMADOL 1 po tid 2 TRAMADOL HCL 46467215933 No Casey Active HCL 50 MG with ES 0 Longer [place] TABS Tylenol 1 Active PA 3 / 0 5 / 0 1 FLUCONAZOL one p.o. q. 2 FLUCONAZOLE 52392959626 No Casey Active E 100 MG day 2 days 0 Longer [place] TABS 1 Active PA 3 / 0 5 / 0 1 POTASSIUM 1 capsule 2 POTASSIUM CHLORIDE 95427589643 No Casey Active CHLORIDE by mouth 0 Longer [place] CR 10 MEQ daily 1 Active PA CPCR 3 / 0 5 / 0 1 IMIPRAMINE Take 6 IMIPRAMINE HCL 20372428757 Active Maite C Active HCL 50 MG tablets by Madril TABS mouth at PhD bedtime DIFLUCAN 1 tablet by 2 FLUCONAZOLE 65249485252 No Joseph W Active 100 MG TAB mouth daily 0 Longer Farooq DO 1 Active 2 / 0 2 / 2 4 METOPROLOL 1/2 tab po METOPROLOL 71495782509 Active Joseph W Active TARTRATE bid TARTRATE Farooq DO 25 MG TABS VERAPAMIL 2 po bid VERAPAMIL HCL 33301069963 Active Joseph W Active HCL CR 120 Farooq DO MG TAB CR PERMETHRIN apply neck 2 PERMETHRIN 51755362231 No Joseph W Active 5 % CREA to toes 0 Longer Farooq DO tonight and 1 Active then rinse 2 off in / morning. 0 repeat at 7 1 days / 2 0 SEROQUEL one p.o. q. 2 QUETIAPINE 46372494410 No Joseph W Active XR 50 MG evening 0 FUMARATE Longer Farooq DO [id number] 1 Active 2 / 0 1 / 2 0 TRAMADOL 1-2 tablets 2 TRAMADOL HCL 18982784266 No Joseph W Active HCL 50 MG every 6-8 0 Longer Farooq DO TABS hours as 1 Active needed for 2 pain / 0 1 / 2 0 ALPRAZOLAM one p.o. ALPRAZOLAM 07633234524 Active Joseph W Active 3 MG q.h.s. Farooq DO [id number] ALPRAZOLAM Take 1 2 ALPRAZOLAM 98037644187 No Joseph W Active XR tablet by 0 [id number] Longer Farooq DO [id number] mouth at 1 Active bedtime 1 / 2 9 DIFLUCAN 1 tablet by 2 FLUCONAZOLE 36798931641 No Joseph W Active 100 MG TAB mouth daily 0 Longer Farooq DO 1 Active 0 / 0 6 AMBIEN 10 1 tab by ZOLPIDEM TARTRATE 14574857698 Active Joseph W Active MG TAB mouth at Farooq DO bedtime as needed for sleep DIFLUCAN 100 1 tablet DIFLUCAN 798736 FLUCONAZOLE Inactive MG TAB by mouth 100 MG TAB daily ALPRAZOLAM Take 1 ALPRAZOLAM ALPRAZOLAM Inactive XR [id number] tablet by XR [id number] mouth at [id number] bedtime TRAMADOL HCL 1-2 TRAMADOL 033910 TRAMADOL HCL Inactive 50 MG TABS tablets HCL 50 MG every 6-8 TABS hours as needed for pain SEROQUEL XR one p.o. SEROQUEL XR QUETIAPINE Inactive 50 MG q. evening 50 MG FUMARATE [id number] PERMETHRIN 5 apply neck PERMETHRIN 633950 PERMETHRIN Inactive % CREA to toes 5 % CREA tonight and then rinse off in morning. repeat at 7 days DIFLUCAN 100 1 tablet DIFLUCAN 152695 FLUCONAZOLE Inactive MG TAB by mouth 100 MG TAB daily POTASSIUM 1 capsule POTASSIUM POTASSIUM Inactive CHLORIDE CR by mouth CHLORIDE CR CHLORIDE 10 MEQ CPCR daily 10 MEQ CPCR FLUCONAZOLE one p.o. FLUCONAZOLE 19760111 FLUCONAZOLE Inactive 100 MG TABS q. day 2 100 MG TABS days TRAMADOL HCL 1 po tid TRAMADOL 183254 TRAMADOL HCL Inactive 50 MG TABS with ES HCL 50 MG Tylenol TABS NECON 1/35 1 po daily NECON 1/35 NORETHINDRONE- Inactive (28) 1-35 (28) 1-35 ETH ESTRADIOL MG-MCG TABS MG-MCG TABS CIPRO 500 MG 1 tablet CIPRO 500 773660 CIPROFLOXACIN Inactive TAB by mouth MG TAB HCL twice daily ADIPEX-P 1/2 tab po ADIPEX-P 997091 PHENTERMINE Inactive 37.5 MG CAPS q am for 37.5 MG HCL weight CAPS loss ABILIFY 2 MG 1 po q hs ABILIFY 2 ARIPIPRAZOLE Inactive TABS for major MG TABS depression HYDROCHLOROT 2 tabs HYDROCHLORO 284814 HYDROCHLOROTHI Inactive HIAZIDE 25 every THIAZIDE 25 AZIDE MG TABS morning MG TABS ABILIFY 5 MG one p.o. ABILIFY 5 ARIPIPRAZOLE Inactive TABS q. day MG TABS CIPROFLOXACI Take one CIPROFLOXAC 817921 CIPROFLOXACIN Inactive N HCL 500 MG (1) tablet IN HCL 500 HCL TABS by mouth MG TABS twice a day PROMETHAZINE 1 tab by PROMETHAZIN 622538 PROMETHAZINE Inactive HCL 25 MG mouth E HCL 25 MG HCL TABS every 6 TABS hours as needed PHENTERMINE 1 po q am PHENTERMINE 770946 PHENTERMINE Inactive HCL 37.5 MG for wt. HCL 37.5 MG HCL TABS loss TABS AMARYL 1 MG 1 tab AMARYL 1 MG 660040 GLIMEPIRIDE Inactive TABS twice TABS daily METFORMIN 1 tablet METFORMIN 705925 METFORMIN HCL Inactive HCL 500 MG by mouth HCL 500 MG TABS twice TABS daily SPIRONOLACTO 1 tablet SPIRONOLACT 698628 SPIRONOLACTONE Inactive NE 25 MG TAB by mouth ONE 25 MG daily TAB POTASSIUM 2 capsule POTASSIUM POTASSIUM Inactive CHLORIDE CR by mouth CHLORIDE CR CHLORIDE 10 MEQ CPCR daily 10 MEQ CPCR LISINOPRIL 1 tablet LISINOPRIL 119278 LISINOPRIL Inactive 20 MG TABS by mouth 20 MG TABS daily DIFLUCAN 100 1 tablet DIFLUCAN 221919 FLUCONAZOLE Inactive MG TABS by mouth 100 MG TABS every other day for 2 doses DIFLUCAN 100 1 tablet DIFLUCAN 741351 FLUCONAZOLE Inactive MG TAB by mouth 100 MG TAB daily x 3 days PREDNISONE 2 tablets PREDNISONE 252621 PREDNISONE Inactive 20 MG TAB today, 20 MG TAB then 1 tablet days 2-4 AMOXICILLIN 2 po BID x AMOXICILLIN 118641 AMOXICILLIN Inactive 500 MG CAPS 10 days 500 MG CAPS PREDNISONE 2 tabs PREDNISONE 692828 PREDNISONE Inactive 20 MG TAB daily for 20 MG TAB 3 days, 1 tab daily for 3 days, 1/2 tab daily for 2 days Vital Signs Date Name Value Unit Range Description temperature E&M 97.1 [degF] Body temperature weight [...] Panel - Chemistry sodium, serum 137 mmol/L 060-872 7476/08/29 potassium, serum 4.1 mmol/L 3.5-5.2 chloride, serum 100 mmol/L 98-107 carbon dioxide, venous blood 31.1 mmol/L 21.0-32.0 blood glucose 138 mg/dL 65-110 calcium, serum 9.2 mg/dL 8.5-10.1 urea nitrogen, blood 9 mg/dL 7-18 creatinine, serum 0.80 mg/dL 0.60-1.30 Lab Report: CBC, Comp. Metabolic Panel, HGBA1C - Chemistry sodium, serum 140 mmol/L 685-438 4420/04/13 potassium, serum 3.9 mmol/L 3.5-5.2 chloride, serum [...] count 219 10^3/MM^3 10*3/mm3 142-424 Lab Report: HGBA1C - Chemistry hemoglobin A1C, blood, as % of total hemoglobin 6.1 % 4.3-6.0 Encounters Code Encounter Date Provider Facility CPT-21066 Level [address] [facility] 16:46:04 CDT -[facility] CPT-71224 Level [address] [facility] 15:39:53 CDT -[facility] CPT-76570 Level 3 Est. Patient Maite Sanchez MD PhD [facility] 13:33:34 CDT -[facility]HC CPT-42374 Level [address] [facility] 11:37:08 CDT -[facility] CPT-07357 Level [address] [facility] 17:13:29 [facility]MER -[facility] CPT-66816 Level [address] [facility] 18:42:44 CDT CPT-13235 Level [address] [facility] 16:25:39 CDT CPT-35852 Level 3 Est. Patient Casey ARCHIBALD [facility] 09:52:45 CDT -[facility] CPT-16197 Level [address] [facility] 11:03:29 [facility] -[facility] CPT-69123 Level [address] [facility] 11:03:08 [facility] -[facility] CPT-31239 Level [address] [facility] 14:33:31 CDT -[facility]HC CPT-81326 Level 3 Est. Patient Joseph Pineda [facility] 17:05:02 [facility] CPT-33924 Level 3 Est. Patient Joseph Pineda [facility] 17:48:06 [facility]MER -[facility] CPT-31034 Level 3 Est. Patient Joseph Pineda [facility] 14:59:22 [facility] [employer] -[facility] CPT-46366 Level 3 Est. Patient Joseph Pineda [facility] - 21:45:56 [facility] CPT-00195 Level 3 Est. Patient Joseph Pineda [facility] 21:29:50 T [facility] CPT-23205 Level 3 Est. Patient Joseph Pineda [facility] 12:41:09 T -[facility] Procedures Code Procedure Name Date Entry Date Standard Description CPT-80881 Venipuncture Draw Fee 08:55:49 [employer]MER
--- OUTSIDE RECORDS SUMMARY | 2016-11-20 13:29 | External Medical Summary | Clinical Summary ---
:1965 Author Organization [facility] Address [address] [place] [address] Phone Allergies, Adverse Reactions, Alerts Allergy Name [...] Routine gynecological 12/14 12/14 [place] gynecological examination [employer] examination Postmenopausal 627.1 Active Jillina Postmenopausal bleeding 12/14 12/14 [place] bleeding [employer]PER[employer] ABNORMAL VAGINAL ICD-626.9 Inactive Maite Sanchez BLEEDING PhD SCABIES ICD-133.0 Inactive Maite Sanchze PhD OT GENERAL ICD-V70.3 Inactive Maite Sanchez MEDICAL PhD EXAMINATION ADMIN PURPOSES OTHER ABNORMAL ICD-790.29 Inactive Maite Sanchez GLUCOSE PhD ACUTE BRONCHITIS ICD-466.0 Inactive Maite Sanchez PhD Medication List Medication Instructions Start Stop Generic NDC Status Provider Patient Date Date Name Instruction TRAMADOL / po TRAMADOL [id number] No Jillina Active HCL 50 MG tid with HCL Longer [place] TABS ES Active [employer] Tylenol prn pain VYVANSE 20 1 tablet LISDEXAMF 54245543724 No Jillina Active MG ORAL daily for ETAMINE Longer [place] CAPS binge DIMESYLAT Active [employer]ATOR eating E disorder METFORMIN 2 tablet METFORMIN 45049232707 Active Joseph W Active HCL 500 MG daily for HCL Farooq DO TB24 blood sugars LASIX 20 2 tablet FUROSEMID 65175541333 Active Joseph Pineda Active MG TAB by mouth E Farooq DO daily CELEBREX 1 tablet CELECOXIB 70327014873 Active Joseph W Active 200 MG by mouth Farooq DO CAPS daily with meals PREDNISONE 2 tablets PREDNISON 66692024298 No Joseph W Active 20 MG TAB today, E Longer Farooq DO then 1 Active tablet days 2-4 DIFLUCAN 1 tablet FLUCONAZO 57603968241 No Joseph W Active 100 MG TAB by mouth LE Longer Farooq DO daily x 3 Active days AMARYL 1 1 tablet GLIMEPIRI 95517334265 Active Joseph Pineda Active MG ORAL orally DE Farooq DO TABS twice daily DIFLUCAN 1 tablet FLUCONAZO 69050081423 No Joseph Pineda Active 100 MG by mouth LE Longer Farooq DO TABS every Active other day for 2 doses ZOFRAN 4 1 po q6hr ONDANSETR 79492936309 Active Bam Pineda Active MG TABS PRN ON HCL [place]illow Nausea PREDNISONE 2 tabs PREDNISON 68254607408 No Joseph Pineda Active 20 MG TAB daily for E Longer Farooq DO 3 days, 1 Active tab daily for 3 days, 1/2 tab daily for 2 days AMOXICILLI 2 po BID AMOXICILL 59389103211 No Maite C Active N 500 MG x 10 days IN Longer Madril CAPS Active PhD LISINOPRIL 1 tablet LISINOPRI 54308203240 No Maite C Active 20 MG TABS by mouth L Longer Madril daily Active PhD POTASSIUM 2 capsule POTASSIUM 04428275165 No Joseph Pineda Active CHLORIDE by mouth CHLORIDE Longer Farooq DO CR 10 MEQ daily Active CPCR SPIRONOLAC 1 tablet SPIRONOLA 77793964399 No Joseph W Active TONE 25 MG by mouth CTONE Longer Farooq DO TAB daily Active METFORMIN 1 tablet METFORMIN 26384194992 No Joseph W Active HCL 500 MG by mouth HCL Longer Farooq DO TABS twice Active daily AMARYL 1 1 tab GLIMEPIRI 06930116288 No Joseph W Active MG TABS twice DE Longer Farooq DO daily Active PHENTERMIN 1 po q am PHENTERMI 86728165391 No Joseph W Active E HCL 37.5 for wt. NE HCL Longer Farooq DO MG TABS loss Active PROMETHAZI 1 tab by PROMETHAZ 82284639099 No Joseph W Active NE HCL 25 mouth INE HCL Longer Farooq DO MG TABS every 6 Active hours as needed CIPROFLOXA Take one CIPROFLOX 55810718054 No Joseph W Active DELORES HCL (1) ACIN HCL Longer Farooq DO 500 MG tablet by Active TABS mouth twice a day ABILIFY 5 one p.o. ARIPIPRAZ 07190638640 No Joseph W Active MG TABS q. day OLE Longer Farooq DO Active HYDROCHLOR 2 tabs HYDROCHLO 17705439052 No Joseph W Active OTHIAZIDE every ROTHIAZID Longer Farooq DO 25 MG TABS morning E Active ABILIFY 2 1 po q hs ARIPIPRAZ 53987033139 No Joseph W Active MG TABS for major OLE Longer Farooq DO depressio Active n ADIPEX-P 1/2 tab PHENTERMI 27903197208 No Casey Active 37.5 MG po q am NE HCL Longer [place] CAPS for Active PA weight loss CIPRO 500 1 tablet CIPROFLOX 95216894927 No Casey Active MG TAB by mouth ACIN HCL Longer [place] twice Active PA daily NECON 1/35 1 po NORETHIND 92143651123 No Casey Active (28) 1-35 daily LINDA-ETH Longer Leonarda MG-MCG ESTRADIOL Active PA TABS TRAMADOL 1 po tid TRAMADOL 65514460090 No Casey Active HCL 50 MG with ES HCL Longer [place] TABS Tylenol Active PA FLUCONAZOL one p.o. FLUCONAZO 27231467176 No Casey Active E 100 MG q. day 2 LE Longer [place] TABS days Active PA POTASSIUM 1 capsule POTASSIUM 71987696717 No Casey Active CHLORIDE by mouth CHLORIDE Longer [place] CR 10 MEQ daily Active PA CPCR IMIPRAMINE Take 6 IMIPRAMIN 62127089340 Active Joseph Pineda Active HCL 50 MG tablets E HCL Farooq DO TABS by mouth at bedtime DIFLUCAN 1 tablet FLUCONAZO 99141582200 No Joseph W Active 100 MG TAB by mouth LE Longer Farooq DO daily Active METOPROLOL 1/2 tab METOPROLO 13051324401 Active Joseph W Active TARTRATE po bid L Farooq DO 25 MG TABS TARTRATE VERAPAMIL 2 po bid VERAPAMIL 87515558036 Active Joseph Pineda Active HCL CR 120 HCL Farooq DO MG TAB CR PERMETHRIN apply PERMETHRI 56109758567 No Joseph Pineda Active 5 % CREA neck to N Longer Farooq DO toes Active tonight and then rinse off in morning. repeat at 7 days SEROQUEL one p.o. QUETIAPIN 50973454989 No Joseph W Active XR 50 MG q. E Longer Farooq DO [id number] evening FUMARATE Active TRAMADOL 1-2 TRAMADOL 66501857563 No Joseph W Active HCL 50 MG tablets HCL Longer Farooq DO TABS every 6-8 Active hours as needed for pain ALPRAZOLAM one p.o. ALPRAZOLA 80439929846 Active Joseph W Active 3 MG q.h.s. M Farooq DO [id number] ALPRAZOLAM Take 1 ALPRAZOLA 51751267953 No Joseph W Active XR tablet by M Longer Farooq DO [id number] mouth at [id number]-[id number] Active bedtime DIFLUCAN 1 tablet FLUCONAZO 33225739621 No Joseph W Active 100 MG TAB by mouth MAGNO Longer Farooq DO daily Active AMBIEN 10 1 tab by ZOLPIDEM 71713388399 Active Joseph W Active MG TAB mouth at TARTRATE Farooq DO bedtime as needed for sleep DIFLUCAN 100 1 tablet DIFLUCAN 753936 FLUCONAZOLE Inactive MG TAB by mouth 100 MG TAB daily ALPRAZOLAM Take 1 ALPRAZOLAM ALPRAZOLAM Inactive XR [id number] tablet by XR [id number] mouth at [id number] bedtime TRAMADOL HCL 1-2 TRAMADOL 496867 TRAMADOL HCL Inactive 50 MG TABS tablets HCL 50 MG every 6-8 TABS hours as needed for pain SEROQUEL XR one p.o. SEROQUEL XR QUETIAPINE Inactive 50 MG q. evening 50 MG FUMARATE [id number] PERMETHRIN 5 apply neck PERMETHRIN 237123 PERMETHRIN Inactive % CREA to toes 5 % CREA tonight and then rinse off in morning. repeat at 7 days DIFLUCAN 100 1 tablet DIFLUCAN 581195 FLUCONAZOLE Inactive MG TAB by mouth 100 MG TAB daily POTASSIUM 1 capsule POTASSIUM POTASSIUM Inactive CHLORIDE CR by mouth CHLORIDE CR CHLORIDE 10 MEQ CPCR daily 10 MEQ CPCR FLUCONAZOLE one p.o. FLUCONAZOLE 19760111 FLUCONAZOLE Inactive 100 MG TABS q. day 2 100 MG TABS days TRAMADOL HCL 1 po tid TRAMADOL 613076 TRAMADOL HCL Inactive 50 MG TABS with ES HCL 50 MG Tylenol TABS NECON 1/35 1 po daily NECON 1/35 NORETHINDRONE- Inactive (28) 1-35 (28) 1-35 ETH ESTRADIOL MG-MCG TABS MG-MCG TABS CIPRO 500 MG 1 tablet CIPRO 500 182675 CIPROFLOXACIN Inactive TAB by mouth MG TAB HCL twice daily ADIPEX-P 1/2 tab po ADIPEX-P 720301 PHENTERMINE Inactive 37.5 MG CAPS q am for 37.5 MG HCL weight CAPS loss ABILIFY 2 MG 1 po q hs ABILIFY 2 855589 ARIPIPRAZOLE Inactive TABS for major MG TABS depression HYDROCHLOROT 2 tabs HYDROCHLORO 041673 HYDROCHLOROTHI Inactive HIAZIDE 25 every THIAZIDE 25 AZIDE MG TABS morning MG TABS ABILIFY 5 MG one p.o. ABILIFY 5 449040 ARIPIPRAZOLE Inactive TABS q. day MG TABS CIPROFLOXACI Take one CIPROFLOXAC 063605 CIPROFLOXACIN Inactive N HCL 500 MG (1) tablet IN HCL 500 HCL TABS by mouth MG TABS twice a day PROMETHAZINE 1 tab by PROMETHAZIN 855721 PROMETHAZINE Inactive HCL 25 MG mouth E HCL 25 MG HCL TABS every 6 TABS hours as needed PHENTERMINE 1 po q am PHENTERMINE 693436 PHENTERMINE Inactive HCL 37.5 MG for wt. HCL 37.5 MG HCL TABS loss TABS AMARYL 1 MG 1 tab AMARYL 1 MG 946167 GLIMEPIRIDE Inactive TABS twice TABS daily METFORMIN 1 tablet METFORMIN 513814 METFORMIN HCL Inactive HCL 500 MG by mouth HCL 500 MG TABS twice TABS daily SPIRONOLACTO 1 tablet SPIRONOLACT 239211 SPIRONOLACTONE Inactive NE 25 MG TAB by mouth ONE 25 MG daily TAB POTASSIUM 2 capsule POTASSIUM POTASSIUM Inactive CHLORIDE CR by mouth CHLORIDE CR CHLORIDE 10 MEQ CPCR daily 10 MEQ CPCR LISINOPRIL 1 tablet LISINOPRIL 791073 LISINOPRIL Inactive 20 MG TABS by mouth 20 MG TABS daily DIFLUCAN 100 1 tablet DIFLUCAN 881111 FLUCONAZOLE Inactive MG TABS by mouth 100 MG TABS every other day for 2 doses DIFLUCAN 100 1 tablet DIFLUCAN 673950 FLUCONAZOLE Inactive MG TAB by mouth 100 MG TAB daily x 3 days PREDNISONE 2 tablets PREDNISONE 236214 PREDNISONE Inactive 20 MG TAB today, 20 MG TAB then 1 tablet days 2-4 VYVANSE 20 1 tablet VYVANSE 20 LISDEXAMFETAMI Inactive MG ORAL CAPS daily for MG ORAL NE DIMESYLATE binge CAPS eating disorder TRAMADOL HCL 1/2 po tid TRAMADOL 383252 TRAMADOL HCL Inactive 50 MG TABS with ES HCL 50 MG Tylenol TABS prn pain AMOXICILLIN 2 po BID x AMOXICILLIN 232649 AMOXICILLIN Inactive 500 MG CAPS 10 days 500 MG CAPS PREDNISONE 2 tabs PREDNISONE 690978 PREDNISONE Inactive 20 MG TAB daily for [...] Panel - Chemistry sodium, serum 137 mmol/L 051-156 9348/08/29 potassium, serum 4.1 mmol/L 3.5-5.2 chloride, serum 100 mmol/L 98-107 carbon dioxide, venous blood 31.1 mmol/L 21.0-32.0 blood glucose 138 mg/dL 65-110 calcium, serum 9.2 mg/dL 8.5-10.1 urea nitrogen, blood 9 mg/dL 7-18 creatinine, serum 0.80 mg/dL 0.60-1.30 Lab Report: CBC, Comp. Metabolic Panel, HGBA1C - Chemistry sodium, serum 140 mmol/L 323-181 9740/04/13 potassium, serum 3.9 mmol/L 3.5-5.2 chloride, serum [...] mg/g mg/g{creat} 0-29 sodium, serum 140 mmol/L 544-479 3962/07/21 potassium, serum 3.9 mmol/L 3.5-5.2 chloride, serum [...] 142-424 Encounters Code Encounter Date Provider Facility CPT-68760 Level 3 Est. Patient Joseph Trivedi [facility] 14:42:12 CDT -RHC CPT-39121 Level 3 Est. Patient Joseph Trivedi [facility] 22:18:20 CDT -R[facility] CPT-10077 Level 3 Est. Patient Joseph Trivedi [facility] 16:46:04 CDT -RHC CPT-75338 Level 3 Est. Patient Joseph Pineda [facility] 15:39:53 CDT -RHC CPT-58132 Level 3 Est. Patient Maite Sanchez MD [facility] 13:33:34 CDT -RHC CPT-74555 Level 3 Est. Patient Joseph Pineda [facility] 11:37:08 CDT -RHC CPT-01972 Level 3 Est. Patient Joseph Pineda [facility] 17:13:29 PEDIATRIC CNS -RHC CPT-55686 Level 3 Est. Patient Joseph Pineda [facility] 18:42:44 CDT CPT-92834 Level 3 Est. Patient Joseph Pineda [facility] 16:25:39 CDT CPT-89602 Level 3 Est. Patient Casey ARCHIBALD [facility] 09:52:45 CDT -RHC CPT-04768 Level 3 Est. Patient Joseph Edwin [facility] 11:03:29 PEDIATRIC CNS -RHC CPT-59274 Level 3 Est. Patient Joseph Edwin [facility] 11:03:08 PEDIATRIC CNS -RHC CPT-29369 Level 3 Est. Patient Joseph Edwin [facility] 14:33:31 CDT -RHC CPT-67915 Level 3 Est. Patient Joseph Edwin [facility] 17:05:02 PEDIATRIC CNS -RHC CPT-00520 Level 3 Est. Patient Joseph Edwin [facility] 17:48:06 PEDIATRIC CNS -RHC CPT-88657 Level 3 Est. Patient [place] Edwin [facility] 14:59:22 PEDIATRIC CNS -RHC CPT-16731 Level 3 Est. Patient Joseph Edwin [facility] - 21:45:56 PEDIATRIC CNS Jose [facility] CPT-47576 Level 3 Est. Patient [facility] 21:29:50 CDT -RHC CPT-99618 Level 3 Est. Patient Joseph W [facility] 12:41:09 CDT -RH Procedures Code Procedure Name Date Entry Date Standard Description CPT-55627 Venipuncture Draw Fee 08:55:49 PEDIATRIC CNS
--- OUTSIDE RECORDS SUMMARY | 2016-11-20 13:30 | External Medical Summary | Clinical Summary ---
:1965 Author Organization [facility] Address [address] [place] [address] Phone Allergies, Adverse Reactions, Alerts Allergy Name Reaction Description Start Date Severity Status Provider No Known Allergies Anne Neil Ashlyn Conditions or Problems Problem Name Problem Onset Status Entry Provider Comment Standard Annotate Code Date Date Description ABNORMAL 626.9 Resolved Maite Gutierrez Unspecified VAGINAL Laura ONEAL disorders of BLEEDING PhD menstruation and other abnormal bleeding from female genital tract DEPRESSION, 296.33 Active Joesph Pineda Major ACUTE, Farooq DO depressive RECURRENT [...] Name Instruction VYVANSE 20 1 tablet LISDEXAMFETAMINE 22505582360 Active Joseph Pineda Active MG ORAL daily for DIMESYLATE Farooq DO CAPS binge eating disorder METFORMIN 2 tablet METFORMIN HCL 56698567410 Active Joseph Pineda Active HCL 500 MG daily for Farooq DO TB24 blood sugars LASIX 20 2 tablet by FUROSEMIDE 41775369661 Active Joseph Pineda Active MG TAB mouth daily Farooq DO CELEBREX 1 tablet by CELECOXIB 47081069893 Active Joseph Pineda Active 200 MG mouth daily Farooq DO CAPS with meals PREDNISONE 2 tablets 2 PREDNISONE 65195560799 No Joseph Pineda Active 20 MG TAB today, then 0 Longer Farooq DO 1 tablet 1 Active days 2-4 5 / 0 4 / 3 DIFLUCAN 1 tablet by 2 FLUCONAZOLE 49850141251 No Joseph W Active 100 MG TAB mouth daily 0 Longer Farooq DO x 3 days 1 Active 5 / 0 4 / 3 AMARYL 1 1 tablet GLIMEPIRIDE 81539674356 Active Joseph Pineda Active MG ORAL orally Farooq DO TABS twice daily DIFLUCAN 1 tablet by 2 FLUCONAZOLE 14677500813 No Joseph W Active 100 MG mouth every 0 Longer Farooq DO TABS other day 1 Active for 2 doses 5 / 0 1 / 2 3 ZOFRAN 4 1 po q6hr ONDANSETRON HCL 79217194927 Active Joseph Pineda Active MG TABS PRN Nausea Farooq DO PREDNISONE 2 tabs 2 PREDNISONE 47235978490 No Joseph Pineda Active 20 MG TAB daily for 3 0 Longer Farooq DO days, 1 tab 1 Active daily for 3 4 days, 1/2 / tab daily 1 for 2 days 0 / 2 5 TRAMADOL 1/2 po tid TRAMADOL HCL 13732365321 Active Joseph Pineda Active HCL 50 MG with ES Farooq DO TABS Tylenol prn pain AMOXICILLI 2 po BID x 2 AMOXICILLIN 68747052234 No Maite C Active N 500 MG 10 days 0 Longer Madril CAPS 1 Active PhD 0 / 2 0 LISINOPRIL 1 tablet by 2 LISINOPRIL 03885374917 No Maite C Active 20 MG TABS mouth 0 Longer Madril daily 1 Active PhD 0 / 1 0 POTASSIUM 2 capsule 2 POTASSIUM CHLORIDE 60314716412 No Joseph Pineda Active CHLORIDE by mouth 0 Longer Farooq DO CR 10 MEQ daily 1 Active CPCR 8 2 9 SPIRONOLAC 1 tablet by 2 SPIRONOLACTONE 10390329004 No Joseph Pineda Active TONE 25 MG mouth daily 0 Longer Farooq DO TAB 1 Active 4 / 0 8 / 2 9 METFORMIN 1 tablet 2 METFORMIN HCL 33501257267 No Joseph Pineda Active HCL 500 MG by mouth 0 Longer Farooq DO TABS twice daily 1 Active 4 / 0 8 / 2 9 AMARYL 1 1 tab twice 2 GLIMEPIRIDE 10248698203 No Joseph W Active MG TABS daily 0 Longer Farooq DO 1 Active 4 / 0 8 / 2 9 PHENTERMIN 1 po q am 2 PHENTERMINE HCL 24422948195 No Joseph W Active E HCL 37.5 for wt. 0 Longer Farooq DO MG TABS loss 1 Active 3 / 1 2 / 2 3 PROMETHAZI 1 tab by 2 PROMETHAZINE HCL 60875763482 No Joseph W Active NE HCL 25 mouth every 0 Longer Farooq DO MG TABS 6 hours as 1 Active needed 3 / 0 9 / 0 9 CIPROFLOXA Take one 2 CIPROFLOXACIN HCL 46989080187 No Joseph W Active DELORES HCL (1) tablet 0 Longer Farooq DO 500 MG by mouth 1 Active TABS twice a day 3 / 0 9 / 0 9 ABILIFY 5 one p.o. q. 2 ARIPIPRAZOLE 89171558134 No Joseph W Active MG TABS day 0 Longer Farooq DO 1 Active 3 / 0 9 / 0 9 HYDROCHLOR 2 tabs 2 HYDROCHLOROTHIAZID 57953658084 No Joseph W Active OTHIAZIDE every 0 E Longer Farooq DO 25 MG TABS morning 1 Active 3 / 0 6 / 2 7 ABILIFY 2 1 po q hs 2 ARIPIPRAZOLE 83994859419 No Joseph W Active MG TABS for major 0 Longer Farooq DO depression 1 Active 3 / 0 5 / 0 7 ADIPEX-P 1/2 tab po 2 PHENTERMINE HCL 50933261454 No Casey Active 37.5 MG q am for 0 Longer Hope CAPS weight loss 1 Active PA 3 / 0 5 / 0 1 CIPRO 500 1 tablet by 2 CIPROFLOXACIN HCL 24887648894 No Casey Active MG TAB mouth twice 0 Longer Hope daily 1 Active PA 3 / 0 5 / 0 1 NECON 1/35 1 po daily 2 NORETHINDRONE-ETH 39651877339 No Casey Active (28) 1-35 0 ESTRADIOL Longer Leonarda MG-MCG 1 Active PA TABS 3 / 0 5 / 0 1 TRAMADOL 1 po tid 2 TRAMADOL HCL 41378550260 No Casey Active HCL 50 MG with ES 0 Longer Hope TABS Tylenol 1 Active PA 3 / 0 5 / 0 1 FLUCONAZOL one p.o. q. 2 FLUCONAZOLE 92121162597 No Casey Active E 100 MG day 2 days 0 Longer Leonarda TABS 1 Active PA 3 / 0 5 / 0 1 POTASSIUM 1 capsule 2 POTASSIUM CHLORIDE 21094666477 No Casey Active CHLORIDE by mouth 0 Longer Hope CR 10 MEQ daily 1 Active PA CPCR 3 / 0 5 / 0 1 IMIPRAMINE Take 6 IMIPRAMINE HCL 36051122053 Active Maite C Active HCL 50 MG tablets by Madril TABS mouth at PhD bedtime DIFLUCAN 1 tablet by 2 FLUCONAZOLE 66023155975 No Joseph W Active 100 MG TAB mouth daily 0 Longer Farooq DO 1 Active 2 / 0 2 / 2 4 METOPROLOL 1/2 tab po METOPROLOL 01169813004 Active Joseph W Active TARTRATE bid TARTRATE Farooq DO 25 MG TABS VERAPAMIL 2 po bid VERAPAMIL HCL 24818159078 Active Joseph W Active HCL CR 120 Farooq DO MG TAB CR PERMETHRIN apply neck 2 PERMETHRIN 78078389562 No Joseph W Active 5 % CREA to toes 0 Longer Farooq DO tonight and 1 Active then rinse 2 off in / morning. 0 repeat at 7 1 days / 2 0 SEROQUEL one p.o. q. 2 QUETIAPINE 22486780322 No Joseph W Active XR 50 MG evening 0 FUMARATE Longer Farooq DO [id number] 1 Active 2 / 0 1 / 2 0 TRAMADOL 1-2 tablets 2 TRAMADOL HCL 63541204173 No Joseph W Active HCL 50 MG every 6-8 0 Longer Farooq DO TABS hours as 1 Active needed for 2 pain / 0 1 / 2 0 ALPRAZOLAM one p.o. ALPRAZOLAM 72870798901 Active Joseph W Active 3 MG q.h.s. Farooq DO [id number] ALPRAZOLAM Take 1 2 ALPRAZOLAM 63978067248 No Joseph W Active XR tablet by 0 [id number] Longer Farooq DO [id number] mouth at 1 Active bedtime 1 / 2 9 DIFLUCAN 1 tablet by 2 FLUCONAZOLE 83077997312 No Joseph W Active 100 MG TAB mouth daily 0 Longer Farooq DO 1 Active 0 / 0 6 AMBIEN 10 1 tab by ZOLPIDEM TARTRATE 07760454644 Active Joseph W Active MG TAB mouth at Farooq DO bedtime as needed for sleep DIFLUCAN 100 1 tablet DIFLUCAN 290518 FLUCONAZOLE Inactive MG TAB by mouth 100 MG TAB daily ALPRAZOLAM Take 1 ALPRAZOLAM ALPRAZOLAM Inactive XR [id number] tablet by XR [id number] mouth at [id number] bedtime TRAMADOL HCL 1-2 TRAMADOL 091424 TRAMADOL HCL Inactive 50 MG TABS tablets HCL 50 MG every 6-8 TABS hours as needed for pain SEROQUEL XR one p.o. SEROQUEL XR QUETIAPINE Inactive 50 MG q. evening 50 MG FUMARATE [id number] PERMETHRIN 5 apply neck PERMETHRIN 983643 PERMETHRIN Inactive % CREA to toes 5 % CREA tonight and then rinse off in morning. repeat at 7 days DIFLUCAN 100 1 tablet DIFLUCAN 040483 FLUCONAZOLE Inactive MG TAB by mouth 100 MG TAB daily POTASSIUM 1 capsule POTASSIUM POTASSIUM Inactive CHLORIDE CR by mouth CHLORIDE CR CHLORIDE 10 MEQ CPCR daily 10 MEQ CPCR FLUCONAZOLE one p.o. FLUCONAZOLE 19760111 FLUCONAZOLE Inactive 100 MG TABS q. day 2 100 MG TABS days TRAMADOL HCL 1 po tid TRAMADOL 322248 TRAMADOL HCL Inactive 50 MG TABS with ES HCL 50 MG Tylenol TABS NECON 1/35 1 po daily NECON 1/35 NORETHINDRONE- Inactive (28) 1-35 (28) 1-35 ETH ESTRADIOL MG-MCG TABS MG-MCG TABS CIPRO 500 MG 1 tablet CIPRO 500 136754 CIPROFLOXACIN Inactive TAB by mouth MG TAB HCL twice daily ADIPEX-P 1/2 tab po ADIPEX-P 434468 PHENTERMINE Inactive 37.5 MG CAPS q am for 37.5 MG HCL weight CAPS loss ABILIFY 2 MG 1 po q hs ABILIFY 2 ARIPIPRAZOLE Inactive TABS for major MG TABS depression HYDROCHLOROT 2 tabs HYDROCHLORO 742203 HYDROCHLOROTHI Inactive HIAZIDE 25 every THIAZIDE 25 AZIDE MG TABS morning MG TABS ABILIFY 5 MG one p.o. ABILIFY 5 ARIPIPRAZOLE Inactive TABS q. day MG TABS CIPROFLOXACI Take one CIPROFLOXAC 520854 CIPROFLOXACIN Inactive N HCL 500 MG (1) tablet IN HCL 500 HCL TABS by mouth MG TABS twice a day PROMETHAZINE 1 tab by PROMETHAZIN 910692 PROMETHAZINE Inactive HCL 25 MG mouth E HCL 25 MG HCL TABS every 6 TABS hours as needed PHENTERMINE 1 po q am PHENTERMINE 061092 PHENTERMINE Inactive HCL 37.5 MG for wt. HCL 37.5 MG HCL TABS loss TABS AMARYL 1 MG 1 tab AMARYL 1 MG 158730 GLIMEPIRIDE Inactive TABS twice TABS daily METFORMIN 1 tablet METFORMIN 640916 METFORMIN HCL Inactive HCL 500 MG by mouth HCL 500 MG TABS twice TABS daily SPIRONOLACTO 1 tablet SPIRONOLACT 657171 SPIRONOLACTONE Inactive NE 25 MG TAB by mouth ONE 25 MG daily TAB POTASSIUM 2 capsule POTASSIUM POTASSIUM Inactive CHLORIDE CR by mouth CHLORIDE CR CHLORIDE 10 MEQ CPCR daily 10 MEQ CPCR LISINOPRIL 1 tablet LISINOPRIL 033663 LISINOPRIL Inactive 20 MG TABS by mouth 20 MG TABS daily DIFLUCAN 100 1 tablet DIFLUCAN 450149 FLUCONAZOLE Inactive MG TABS by mouth 100 MG TABS every other day for 2 doses DIFLUCAN 100 1 tablet DIFLUCAN 315433 FLUCONAZOLE Inactive MG TAB by mouth 100 MG TAB daily x 3 days PREDNISONE 2 tablets PREDNISONE 654031 PREDNISONE Inactive 20 MG TAB today, 20 MG TAB then 1 tablet days 2-4 AMOXICILLIN 2 po BID x AMOXICILLIN 929770 AMOXICILLIN Inactive 500 MG CAPS 10 days 500 MG CAPS PREDNISONE 2 tabs PREDNISONE 673221 PREDNISONE Inactive 20 MG TAB daily for [...] Panel - Chemistry sodium, serum 137 mmol/L 910-787 1656/08/29 potassium, serum 4.1 mmol/L 3.5-5.2 chloride, serum 100 mmol/L 98-107 carbon dioxide, venous blood 31.1 mmol/L 21.0-32.0 blood glucose 138 mg/dL 65-110 calcium, serum 9.2 mg/dL 8.5-10.1 urea nitrogen, blood 9 mg/dL 7-18 creatinine, serum 0.80 mg/dL 0.60-1.30 Lab Report: CBC, Comp. Metabolic Panel, HGBA1C - Chemistry sodium, serum 140 mmol/L 875-195 2430/04/13 potassium, serum 3.9 mmol/L 3.5-5.2 chloride, serum [...] 4.3-6.0 Encounters Code Encounter Date Provider Facility CPT-47662 Level 3 Est. Patient Joseph Pineda [facility] 16:46:04 CDT -[facility] CPT-55923 Level 3 Est. Patient Joseph Edwin [facility] 15:39:53 CDT -[facility] CPT-72016 Level 3 Est. Patient Maite Sanchez MD PhD [facility] 13:33:34 CDT -[facility] CPT-22143 Level 3 Est. Patient Joseph Pineda [facility] 11:37:08 CDT -[facility] CPT-53693 Level 3 Est. Patient Joseph Pineda [facility] 17:13:29 [facility] [employer] -[facility] CPT-99635 Level 3 Est. Patient Joseph Pineda [facility] 18:42:44 CDT CPT-41135 Level 3 Est. Patient Joseph Pineda [facility] 16:25:39 CDT CPT-69179 Level 3 Est. Patient Casey ARCHIBALD [facility] 09:52:45 CDT -[facility] CPT-92325 Level 3 Est. Patient Joseph Pineda [facility] 11:03:29 [facility] -[facility] CPT-59222 Level 3 Est. Patient Joseph W Farooq [facility] 11:03:08 [facility] [employer] -[facility] CPT-52894 Level 3 Est. Patient Joseph Pineda [facility] 14:33:31 CDT -[facility] CPT-43381 Level 3 Est. Patient Joseph Pineda [facility] 17:05:02 [facility] -[facility] CPT-21107 Level 3 Est. Patient Joseph Pineda [facility] 17:48:06 [employer] -[facility] CPT-80275 Level 3 Est. Patient Joseph Pineda [facility] 14:59:22 [facility] -[facility] CPT-63996 Level 3 Est. Patient Joseph Pineda [facility] - 21:45:56 [employer] [place] [facility] CPT-92616 Level 3 Est. Patient Joseph Pineda [facility] 21:29:50 CDT -C CPT-05252 Level 3 Est. Patient Joseph Pineda [facility] 12:41:09 CDT -[facility] Procedures Code Procedure Name Date Entry Date Standard Description CPT-57023 Venipuncture Draw Fee 08:55:49 [employer]
--- OUTSIDE RECORDS SUMMARY | 2016-11-20 13:30 | External Medical Summary | Clinical Summary ---
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 NKDA Critical No Longer Indigo Yokum ASSISTANT TRACK COACH Active NKDA Critical Inactive Adrianna Elder Conditions [...] 311 Active Indigo Depressive chronic 09/20 [employer] ASSISTANT TRACK COACH disorder, not elsewhere classified SCABIES 133.0 Resolved Maite Gutierrez Scabies 06/23 Laura ONEAL PhD HYPERTENSION 401.9 Active Joseph Pineda Unspecified 05/24 Farooq DO essential hypertension FATIGUE 780.79 Resolved Indigo Other malaise 05/24 07/02 [facility] ASSISTANT TRACK COACH and fatigue SLEEP APNEA, 327.23 Active Joseph Pineda Obstructive OBSTRUCTIVE, 06/27 06/27 Farooq DO sleep apnea MILD (adult) (pediatric) OVERWEIGHT 278.02 Inactive Joseph Pineda Overweight 06/28 06/28 Farooq DO Obesity 278.00 Active Indigo Obesity, 06/28 10/18 Yokum ASSISTANT TRACK COACH unspecified OT GENERAL V70.3 Resolved Maite C Other general MEDICAL Laura ONEAL medical EXAMINATION PhD examination for ADMIN administrative PURPOSES purposes OTHER 790.29 Resolved Maite C Other abnormal ABNORMAL 05/20 Laura ONEAL glucose GLUCOSE PhD ACUTE 466.0 Resolved Maite Gutierrez Acute bronchitis BRONCHITIS 09/02 Laura ONEAL PhD DEPENDENT 782.3 Resolved Indigo Edema EDEMA, LEGS, 10/29 10/18 [facility]um ASSISTANT TRACK COACH BILATERAL HYPOKALEMIA, 276.8 Resolved Indigo Hypopotassemia MILD 10/29 07/02 Yo ASSISTANT TRACK COACH Diabetes, 250.00 Inactive Joseph Pineda Diabetes Type 2 06/27 06/27 Farooq DO mellitus without mention of complication, type II or unspecified type, not stated as uncontrolled Diabetes 250.02 Resolved Indigo Diabetes mellitus, 06/27 10/18 Yokum ASSISTANT TRACK COACH mellitus without type II, mention of uncontrolled [...] Resolved Indigo Routine gynecological 12/14 07/02 Yo ASSISTANT TRACK COACH gynecological examination examination Postmenopausa 627.1 Resolved Indigo Postmenopausal l bleeding 12/14 07/02 Yokum ASSISTANT TRACK COACH bleeding Screening for V76.51 Resolved Indigo Screening for malignant 12/26 07/02 [employer] ASSISTANT TRACK COACH malignant neoplasms of neoplasms of colon colon Insomnia, 307.42 Active 2015/0 Indigo 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 ASSISTANT TRACK COACH disorder of initiating or maintaining sleep Establish V68.89 Resolved Indigo Encounters for care or get 01/16 07/02 Yokum ASSISTANT TRACK COACH other specified acquainted administrative visit purpose Weakness, 342.90 Resolved Indigo Hemiplegia, left side of 06/20 10/18 [employer] ASSISTANT TRACK COACH unspecified, body affecting unspecified side TIA 435.9 Active Indigo Unspecified 06/20 07/02 Yokum ASSISTANT TRACK COACH transient cerebral ischemia Knee pain, 719.46 Active Indigo Pain in joint bilateral 06/20 10/18 Yokum ASSISTANT TRACK COACH involving lower leg Bronchitis 490 Resolved Indigo Bronchitis, not 07/23 10/18 Y[employer]um ASSISTANT TRACK COACH specified as acute or chronic Diabetes 357.2 Active Maliheh Polyneuropathy mellitus, 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 y Knee pain, 719.46 Resolved Indigo Pain in joint right 06/20 09/20 [employer] ASSISTANT TRACK COACH involving lower leg Jesi 112.3 Resolved Indigo Candidiasis of intertrigo 10/09 09/20 Yokum ASSISTANT TRACK COACH skin and nails Hyperlipidemi 272.4 Active Anne Other and a 12/24 12/24 Neil unspecified RMA hyperlipidemia Incontinence, 788.33 Resolved Indigo Mixed mixed, 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 ASSISTANT TRACK COACH incontinence urge/stress (female) (male) Female stress 625.6 Active Yury Monaco Stress incontinence 01/03 01/03 Cy patel MD female Vaginal odor 623.8 Resolved Indigo Other specified 05/28 09/20 [employer] ASSISTANT TRACK COACH noninflammatory disorders of vagina Urinary tract 599.0 Resolved Indigo Urinary tract infection 05/28 09/20 Yokum ASSISTANT TRACK COACH infection, site not specified Urine odor 791.9 Resolved Indigo Other 05/28 09/20 Yokum ASSISTANT TRACK COACH nonspecific findings on examination of urine Unspecified Resolved Indigo dyspareunia 08/19 09/20 Yokum ASSISTANT TRACK COACH Depression Resolved Indigo 09/20 [employer] ASSISTANT TRACK COACH Anxiety Active Indigo Anxiety state, Disorder 08/26 ASSISTANT TRACK COACH unspecified ABNORMAL VAGINAL ICD-626.9 Inactive Maite C Laura BLEEDING PhD SCABIES ICD-133.0 Inactive Maite C Laura PhD FATIGUE ICD-780.79 Inactive Indigo [employer] ASSISTANT TRACK COACH OTH GENERAL ICD-V70.3 Inactive Maite C Laura MEDICAL MD PhD EXAMINATION ADMIN PURPOSES OTHER ABNORMAL ICD-790.29 Inactive Maite C Ronyril GLUCOSE PhD ACUTE BRONCHITIS ICD-466.0 Inactive Maite C Laura PhD DEPENDENT EDEMA, ICD-782.3 Inactive Indigo Yokum LEGS, BILATERAL ASSISTANT TRACK COACH HYPOKALEMIA, MILD ICD-276.8 Inactive Indigo [employer] ASSISTANT TRACK COACH Diabetes mellitus, ICD-250.02 Inactive Indigo Yokum type II, ASSISTANT TRACK COACH uncontrolled Sinusitis, ICD-461.1 Inactive Ismael Coyne frontal, acute Amandeep ONEAL Laryngitis, acute ICD-464.00 Inactive Ismael Coyne Amandeep ONEAL Routine ICD-V72.31 Inactive Indigo Y[employer]um gynecological ASSISTANT TRACK COACH examination Postmenopausal ICD-627.1 Inactive Indigo Yokum 2015 bleeding ASSISTANT TRACK COACH Screening for ICD-V76.51 Inactive Nidigo Yokum 2015 malignant ASSISTANT TRACK COACH neoplasms of colon Establish care or ICD-V68.89 Inactive Indigo Yokum get acquainted ASSISTANT TRACK COACH visit Weakness, left ICD-342.90 Inactive Indigo Yokum side of body ASSISTANT TRACK COACH Bronchitis ICD-490 Inactive Indigo Yokum ASSISTANT TRACK COACH Knee pain, right ICD-719.46 Inactive Indigo Yokum ASSISTANT TRACK COACH Jesi intertrigo ICD-112.3 Inactive Indigo [employer]um ASSISTANT TRACK COACH Incontinence, ICD-788.33 Inactive Indigo Yokum 2016 mixed, urge/stress ASSISTANT TRACK COACH Vaginal odor ICD-623.8 Inactive Indigo Yokum 09/20 ASSISTANT TRACK COACH Urinary tract ICD-599.0 Inactive Indigo Yokum 09/20 infection ASSISTANT TRACK COACH Urine odor ICD-791.9 Inactive Indigo [employer]ok[employer] ASSISTANT TRACK COACH Unspecified Inactive Indigo Yokum dyspareunia ASSISTANT TRACK COACH Depression Inactive Indigo Yokum ASSISTANT TRACK COACH Medication List Medication Instructions Start Stop Generic NDC Status Provider Patient Date Date Name Instruction ASPIR-LOW 81 MG 1 po daily ASPIRIN 36381968832 Active Indigo Active ORAL TBEC Y[employer]um ASSISTANT TRACK COACH ALPRAZOLAM 3 MG one p.o. ALPRAZOLAM 02984088732 Active Indigo Active [id number] q.h.s. Yokum ASSISTANT TRACK COACH ABILIFY 10 MG Take one ARIPIPRAZOLE 87518090132 Active Indigo Active ORAL TABS tablet Yokum daily for ASSISTANT TRACK COACH depression CELEBREX 200 MG 1 tablet 2 CELECOXIB 56318778915 No Indigo Active CAPS by mouth 0 Longer Yokum daily with 1 Active ASSISTANT TRACK COACH meals 7 / 0 / 2 4 TROKENDI XR 100 1 tab by 2 TOPIRAMATE 89249599408 No Indigo Active MG ORAL mouth 0 Longer Yokum [id number] daily 1 Active ASSISTANT TRACK COACH 7 / 0 4 / 2 4 VESICARE 10 MG 1 pill by SOLIFENACIN 90655327867 Active Yury Monaco Active TABS mouth SUCCINATE Benoit daily for MD overactive bladder CIPRO 250 MG 1 tablet 2 CIPROFLOXACI 20108632857 No Indigo Active TAB by mouth 0 N HCL Longer Yokum twice 1 Active ASSISTANT TRACK COACH daily 7 METFORMIN HCL 2 tablets 2 METFORMIN 84555720725 No Indigo Active 500 MG TB24 by mouth 0 HCL Longer Yokum twice 1 Active ASSISTANT TRACK COACH daily 0 8 2 AMARYL 1 MG 1 tablet 2 GLIMEPIRIDE 02029793938 No Indigo Active ORAL TABS orally 0 Longer Yokum twice 1 Active ASSISTANT TRACK COACH daily 0 2 NYSTATIN 563046 apply to NYSTATIN 36453735969 Active Indigo Active UNIT/GM CREA rash TID Yokum PRN ASSISTANT TRACK COACH METOPROLOL 1 tab po METOPROLOL 74850001055 Active Indigo Active TARTRATE 25 MG bid TARTRATE Yokum TABS ASSISTANT TRACK COACH AZITHROMYCIN 2 po qd x 2 AZITHROMYCIN 39156017471 No Jillina Active 250 MG TABS 1 day, 0 Longer Frazell then 1 po 1 Active ASSISTANT TRACK COACH qd x 4 6 days / 0 3 / 2 6 PREDNISONE 20 2 pills 2 PREDNISONE 17735428763 No Jillina Active MG TAB daily x 4 0 Longer [place] days 1 Active ASSISTANT TRACK COACH 6 / 0 3 / 2 5 PIOGLITAZONE take one a PIOGLITAZONE 29654333178 Active Maliheh Active HCL 30 MG ORAL day HCL Ziglari TABS 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 JANUVIA 100 MG 1 tablet 2 SITAGLIPTIN 81949339707 No Indigo Active TABS by mouth 0 PHOSPHATE Longer Yokum daily 1 Active ASSISTANT TRACK COACH 6 / 0 / 6 ATORVASTATIN 1 pill by ATORVASTATIN 12246399066 Active Indigo Active CALCIUM 10 MG mouth CALCIUM Yokum TABS nightly, ASSISTANT TRACK COACH for cholestero l NITROFURANTOIN One 2 NITROFURANTO 07101210232 No Indigo Active MONOHYD MACRO capsule 0 IN MONOHYD Longer Yokum 100 MG CAPS BID for 1 MACRO Active ASSISTANT TRACK COACH UTI 6 / 0 2 3 TRAMADOL HCL 50 1/2 po tid 2 TRAMADOL HCL 45333965717 No Jillina Active MG TABS with ES 0 Longer [place] Tylenol 1 Active ASSISTANT TRACK COACH prn pain 5 / 0 8 2 VYVANSE 20 MG 1 tablet 2 LISDEXAMFETA 01103072586 No Jillina Active ORAL CAPS daily for 0 MINE Longer [place] binge 1 DIMESYLATE Active ASSISTANT TRACK COACH eating 5 disorder / 0 2 LASIX 20 MG TAB 2 tablet FUROSEMIDE 10608961486 Active Indigo Active by mouth Yokum daily ASSISTANT TRACK COACH PREDNISONE 20 2 tablets 2 PREDNISONE 63817487991 No Joseph W Active MG TAB today, 0 Longer Farooq DO then 1 1 Active tablet 5 days 2-4 / 0 4 / 3 DIFLUCAN 100 MG 1 tablet 2 FLUCONAZOLE 49269153829 No Joseph W Active TAB by mouth 0 Longer Farooq DO daily x 3 1 Active days 5 / 0 4 / 1 3 DIFLUCAN 100 MG 1 tablet 2 FLUCONAZOLE 74605394270 No Joseph W Active TABS by mouth 0 Longer Farooq DO every 1 Active other day 5 for 2 / doses 0 1 / 2 3 ZOFRAN 4 MG 1 po q6hr ONDANSETRON 30002714577 Active Joseph W Active TABS PRN Nausea HCL Farooq DO PREDNISONE 20 2 tabs 2 PREDNISONE 30600846635 No Joseph W Active MG TAB daily for 0 Longer Farooq DO 3 days, 1 1 Active tab daily 4 for 3 / days, 1/2 1 tab daily 0 for 2 days / 2 5 AMOXICILLIN 500 2 po BID x 2 AMOXICILLIN 92319893182 No Maite C Active MG CAPS 10 days 0 Longer Laura ONEAL 1 Active PhD 4 / 1 0 / 2 0 LISINOPRIL 20 1 tablet 2 LISINOPRIL 14851176362 No Maite C Active MG TABS by mouth 0 Longer Madhectorl MD daily 1 Active PhD 4 0 / 1 0 POTASSIUM 2 capsule 2 POTASSIUM 83148497773 No Joseph W Active CHLORIDE CR 10 by mouth 0 CHLORIDE Longer Farooq DO MEQ CPCR daily 1 Active 4 / 0 8 / 2 9 SPIRONOLACTONE 1 tablet 2 SPIRONOLACTO 15569729868 No Joseph W Active 25 MG TAB by mouth 0 NE Longer Farooq DO daily 1 Active 4 / 0 8 / 2 9 METFORMIN HCL 1 tablet 2 METFORMIN 47557345278 No Joseph W Active 500 MG TABS by mouth 0 HCL Longer Farooq DO twice 1 Active daily 4 / 0 8 / 2 9 AMARYL 1 MG 1 tab 2 GLIMEPIRIDE 12667734955 No Joseph W Active TABS twice 0 Longer Farooq DO daily 1 Active 4 / 0 8 / 2 9 PHENTERMINE HCL 1 po q am 2 PHENTERMINE 52411929494 No Joseph W Active 37.5 MG TABS for wt. 0 HCL Longer Farooq DO loss 1 Active 3 / 1 2 / 2 3 PROMETHAZINE 1 tab by 2 PROMETHAZINE 82156959224 No Joseph W Active HCL 25 MG TABS mouth 0 HCL Longer Farooq DO every 6 1 Active hours as 3 needed / 0 9 / 0 9 CIPROFLOXACIN Take one 2 CIPROFLOXACI 05596628590 No Joseph W Active HCL 500 MG TABS (1) tablet 0 N HCL Longer Farooq DO by mouth 1 Active twice a 3 day / 0 9 / 0 9 ABILIFY 5 MG one p.o. 2 ARIPIPRAZOLE 25310221070 No Joseph W Active TABS q. day 0 Longer Farooq DO 1 Active 3 / 0 9 / 0 9 HYDROCHLOROTHIA 2 tabs 2 HYDROCHLOROT 75333092332 No Joseph W Active ZIDE 25 MG TABS every 0 HIAZIDE Longer Farooq DO morning 1 Active 3 / 0 6 / 2 7 ABILIFY 2 MG 1 po q hs 2 ARIPIPRAZOLE 46612161447 No Joseph W Active TABS for major 0 Longer Farooq DO depression 1 Active 3 / 0 5 / 0 7 ADIPEX-P 37.5 1/2 tab po 2 PHENTERMINE 38697230900 No Casey Active MG CAPS q am for 0 HCL Longer [facility] weight 1 Active loss 3 / 0 5 / 0 1 CIPRO 500 MG 1 tablet 2 CIPROFLOXACI 16868853443 No Casey Active TAB by mouth 0 N HCL Longer [facility] twice 1 Active daily 3 / 0 5 / 0 1 NECON 1/35 (28) 1 po daily 2 NORETHINDRON 23858880336 No Casey Active 1-35 MG-MCG 0 E-ETH Longer [facility] TABS 1 ESTRADIOL Active 3 / 0 5 / 0 1 TRAMADOL HCL 50 1 po tid 2 TRAMADOL HCL 99829561357 No Casey Active MG TABS with ES 0 Longer [facility] Tylenol 1 Active 3 / 0 5 / 0 1 FLUCONAZOLE 100 one p.o. 2 FLUCONAZOLE 51053609005 No Casey Active MG TABS q. day 2 0 Longer [facility] days 1 Active 3 / 0 5 / 0 1 POTASSIUM 1 capsule 2 POTASSIUM 06216170666 No Casey Active CHLORIDE CR 10 by mouth 0 CHLORIDE Longer [facility] MEQ CPCR daily 1 Active 3 / 0 5 / 0 1 IMIPRAMINE HCL Take 6 IMIPRAMINE 63011985495 Active Indigo Active 50 MG TABS tablets by HCL Y[facility]um mouth at ASSISTANT TRACK COACH bedtime DIFLUCAN 100 MG 1 tablet 2 FLUCONAZOLE 00942968400 No Joseph W Active TAB by mouth 0 Longer [facility] daily 1 Active 2 / 0 2 / 2 4 VERAPAMIL HCL 2 po bid VERAPAMIL 69718748533 Active Indigo Active CR 120 MG TAB HCL Y[facility]um CR ASSISTANT TRACK COACH PERMETHRIN 5 % apply neck 2 PERMETHRIN 00928152946 No Joseph W Active CREA to toes 0 Longer [facility] tonight 1 Active and then 2 rinse off / in 0 morning. 1 repeat at / 7 days 2 0 SEROQUEL XR 50 one p.o. 2 QUETIAPINE 41297865283 No Joseph W Active MG [id number] q. evening 0 FUMARATE Longer Farooq DO 1 Active 2 / 0 1 / 2 0 TRAMADOL HCL 50 1-2 2 TRAMADOL HCL 29116718188 No Joseph W Active MG TABS tablets 0 Longer Farooq DO every 6-8 1 Active hours as 2 needed for / pain 0 1 / 2 0 ALPRAZOLAM XR Take 1 2 ALPRAZOLAM 14706392594 No Joseph W Active [id number] tablet by 0 [id number] Longer Farooq DO mouth at 1 Active bedtime 1 / 2 9 DIFLUCAN 100 MG 1 tablet 2 FLUCONAZOLE 44974384208 No Joseph W Active TAB by mouth 0 Longer Farooq DO daily 1 Active 0 / 0 6 AMBIEN 10 MG 1 tab by ZOLPIDEM 69850710685 Active Indigo Active TAB mouth at TARTRATE Yokum bedtime as ASSISTANT TRACK COACH needed for sleep DIFLUCAN 100 1 tablet DIFLUCAN 19760111 FLUCONAZOLE Inactive MG TAB by mouth 100 MG TAB daily ALPRAZOLAM Take 1 ALPRAZOLAM ALPRAZOLAM Inactive XR [id number] tablet by XR [id number] mouth at [id number] bedtime TRAMADOL HCL 1-2 TRAMADOL 754643 TRAMADOL HCL Inactive 50 MG TABS tablets HCL 50 MG every 6-8 TABS hours as needed for pain SEROQUEL XR one p.o. SEROQUEL XR QUETIAPINE Inactive 50 MG q. 50 MG FUMARATE [id number] evening [id number] PERMETHRIN 5 apply PERMETHRIN 961525 PERMETHRIN Inactive % CREA neck to 5 [...] days TRAMADOL HCL 1 po tid TRAMADOL 419993 TRAMADOL HCL Inactive 50 MG TABS with ES HCL 50 MG Tylenol TABS NECON 1/35 1 po NECON 1/35 NORETHINDRONE- Inactive (28) 1-35 daily (28) 1-35 ETH ESTRADIOL MG-MCG TABS MG-MCG TABS CIPRO 500 MG 1 tablet CIPRO 500 185300 CIPROFLOXACIN Inactive TAB by mouth MG TAB HCL twice daily ADIPEX-P 1/2 tab ADIPEX-P 049341 PHENTERMINE Inactive 37.5 MG CAPS po q am 37.5 MG HCL for CAPS weight loss ABILIFY 2 MG 1 po q hs ABILIFY 2 062376 ARIPIPRAZOLE Inactive TABS for major MG TABS depressio n HYDROCHLOROT 2 tabs HYDROCHLORO 414732 HYDROCHLOROTHI Inactive HIAZIDE 25 every THIAZIDE 25 AZIDE MG TABS morning MG TABS ABILIFY 5 MG one p.o. ABILIFY 5 587407 ARIPIPRAZOLE Inactive TABS q. day MG TABS CIPROFLOXACI Take one CIPROFLOXAC 407116 CIPROFLOXACIN Inactive N HCL 500 MG (1) IN HCL 500 HCL TABS tablet by MG TABS mouth twice a day PROMETHAZINE 1 tab by PROMETHAZIN 560244 PROMETHAZINE Inactive HCL 25 MG mouth E HCL 25 MG HCL TABS every 6 TABS hours as needed PHENTERMINE 1 po q am PHENTERMINE 539840 PHENTERMINE Inactive HCL 37.5 MG for wt. HCL 37.5 MG HCL TABS loss TABS AMARYL 1 MG 1 tab AMARYL 1 MG 680363 GLIMEPIRIDE Inactive TABS twice TABS daily METFORMIN 1 tablet METFORMIN 018195 METFORMIN HCL Inactive HCL 500 MG by mouth HCL 500 MG TABS twice TABS daily SPIRONOLACTO 1 tablet SPIRONOLACT 883073 SPIRONOLACTONE Inactive NE 25 MG TAB by mouth ONE 25 MG daily TAB POTASSIUM 2 capsule POTASSIUM POTASSIUM Inactive CHLORIDE CR by mouth CHLORIDE CR CHLORIDE 10 MEQ CPCR daily 10 MEQ CPCR LISINOPRIL 1 tablet LISINOPRIL 405681 LISINOPRIL Inactive 20 MG TABS by mouth 20 MG TABS daily DIFLUCAN 100 1 tablet DIFLUCAN 798914 FLUCONAZOLE Inactive MG TABS by mouth 100 MG TABS every other day for 2 doses DIFLUCAN 100 1 tablet DIFLUCAN 703400 FLUCONAZOLE Inactive MG TAB by mouth 100 MG TAB daily x 3 days PREDNISONE 2 tablets PREDNISONE 318393 PREDNISONE Inactive 20 MG TAB today, 20 MG TAB then 1 tablet days 2-4 VYVANSE 20 1 tablet VYVANSE 20 LISDEXAMFETAMI Inactive MG ORAL CAPS daily for MG ORAL NE DIMESYLATE binge CAPS eating disorder TRAMADOL HCL 1/2 po TRAMADOL 193783 TRAMADOL HCL Inactive 50 MG TABS tid with HCL 50 MG ES TABS Tylenol prn pain JANUVIA 100 1 tablet JANUVIA 100 SITAGLIPTIN Inactive MG TABS by mouth MG TABS PHOSPHATE daily AMARYL 1 MG 1 tablet AMARYL 1 MG 059008 GLIMEPIRIDE Inactive ORAL TABS orally ORAL TABS twice daily METFORMIN 2 tablets METFORMIN METFORMIN HCL Inactive HCL 500 MG by mouth HCL 500 MG TB24 twice TB24 daily TROKENDI XR 1 tab by TROKENDI XR TOPIRAMATE Inactive 100 MG ORAL mouth 100 MG ORAL [id number] daily [id number] CELEBREX 200 1 tablet CELEBREX 397520 CELECOXIB Inactive MG CAPS by mouth 200 MG CAPS daily with meals AMOXICILLIN 2 po BID AMOXICILLIN 702294 AMOXICILLIN Inactive 500 MG CAPS x 10 days 500 MG CAPS PREDNISONE 2 tabs PREDNISONE 401641 PREDNISONE Inactive 20 MG TAB daily for 20 MG TAB 3 days, 1 tab daily for 3 days, 1/2 tab daily for 2 days NITROFURANTO One NITROFURANT 8453581 NITROFURANTOIN Inactive IN MONOHYD capsule OIN MONOHYD MONOHYD MACRO MACRO 100 MG BID for MACRO 100 CAPS UTI MG CAPS PREDNISONE 2 pills PREDNISONE 503852 PREDNISONE Inactive 20 MG TAB daily x 4 20 MG TAB days AZITHROMYCIN 2 po qd x AZITHROMYCI 7459440 AZITHROMYCIN Inactive 250 MG TABS 1 day, N 250 MG then 1 po TABS qd x 4 days CIPRO 250 MG 1 tablet CIPRO 250 606094 CIPROFLOXACIN Inactive TAB by mouth MG TAB [...] E&M - 3141-9 251 [lb_av] Weight Measured Diagnostic Results Date Name Value Unit Range Description Lab Report: CBC, Comp. Metabolic Panel, HGBA1C, Lipid Panel - Chemistry sodium, serum 143 mmol/L 443-235 9849/06/05 carbon dioxide, venous blood 30.4 mmol/L 21.0-32.0 [...] 6.0 % 4.3-6.0 cholesterol, serum 176 mg/dL 231-343 5999/06/05 triglyceride, serum, fasting 41 mg/dL 30-200 HDL [...] 152 10^3/MM^3 10*3/mm3 142-424 Lab Report: Chlamydia/GC APTIMA/[id number] - Lab chlamydia DNA probe NOT DETECTED NOT DETECTED Lab Report: Chlamydia/GC APTIMA/[id number] - Microbiology Neisseria gonorrhoeae DNA probe NOT DETECTED NOT DETECTED Lab Report: Lipid Panel - Chemistry cholesterol, serum 157 mg/dL 910-474 9323/08/22 triglyceride, serum, fasting 215 mg/dL 30-200 HDL cholesterol, serum 43 mg/dL 32-96 LDL cholesterol, serum 71 mg/dL 0-130 Lab Report: MICROALB/CREAT W/RATIO - Chemistry albumin/creatinine ratio, urine <30 mg/g Normal mg/g mg/g{creat} 0-29 Lab Report: MICROALB/CREAT W/RATIO - Lab microalbumin, urine 10 mg/L 0-19 Lab Report: UA DIP/MANUAL - Chemistry protein, [...] negative Encounters Code Encounter Date Provider Facility CPT-06500 Level 4 Est[facility] 16[facility] [place] CPT-02457 Level 3 Est. Patient Yury Benoit MD [facility] 17:20:07 CDT CPT-15314 Level 4 Est. Patient [facility] - 17:02:40 [employer] [place] CPT-49700 Level 4 New Patient Yury Benoit MD [facility] 15:17:12 CDT CPT-85928 Level 3 Est. [facility] - 13:37:46 CDT [place] CPT-96844 Level 4 Est. Patient [facility] - 10:01:06 CDT [place] CPT-79103 Level 3 Est. Patient [facility] 08:58: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 CPT-16805 Level 3 Est. Patient Faby Marino [facility] 14:40:56 CDT ASSISTANT TRACK COACH CPT-36682 Level 4 Est. Patient [facility] 17:29: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 CPT-83014 Level 4 Est. Patient [facility] 09:51:54 FARM [employer] CPT-77883 Level 3 Est. Patient [facility] 18:59:38 CDT CPT-02912 Level 3 Est. Patient Joseph Trivedi DO [facility] 14:42:12 CDT -[facility] CPT-49062 Level 3 Est. Patient Joseph Pineda [facility] 22:18:20 CDT -[facility] CPT-48094 Level 3 Est. Patient Joseph Pineda [facility] 16:46:04 CDT -[facility] CPT-14759 Level 3 Est. Patient Joseph Pineda [facility] 15:39:53 CDT -[facility] CPT-27247 Level 3 Est. Patient Maite Sanchez MD PhD [facility] 13:33:34 CDT -[facility] CPT-18199 Level 3 Est. Patient Joseph Edwin [facility] 11:37:08 CDT -[facility] CPT-82286 Level 3 Est. Patient Joseph Pineda [facility] 17:13:29 [facility]ARM [employer] -[facility] CPT-49039 Level 3 Est. Patient Joseph Edwin [facility] 18:42:44 CDT CPT-97016 Level 3 Est. Patient Joseph Edwin [facility] 16:25:39 CDT CPT-16605 Level 3 Est. Patient Casey ARCHIBALD [facility] 09:52:45 CDT -[facility] CPT-98073 Level 3 Est. Patient Joseph Edwin [facility] 11:03:29 [facility]ARM [employer] -[facility] CPT-03307 Level 3 Est. Patient Joseph Edwin [facility] 11:03:08 [facility]ARM [employer] -[facility] CPT-98161 Level 3 Est. Patient Joseph Edwin [facility] 14:33:31 CDT -[facility] CPT-34954 Level 3 Est. Patient Joseph Edwin [facility] 17:05:02 FARM R[employer] -[facility] CPT-32722 Level 3 Est. Patient Joseph Edwin [facility] 17:48:06 FARM R[employer] -[facility] CPT-55334 Level 3 Est. Patient [place] [facility] 14:59:22 FARM [employer] -[facility] CPT-21252 Level 3 Est. Patient Joseph W [facility] - 21:45:56 FARM RANCHER Jose [facility] CPT-86240 Level 3 Est. Patient Joseph Trivedi [facility] 21:29:50 CDT -[facility] CPT-00451 Level 3 Est. Patient Joseph Trivedi [facility] 12:41:09 CDT -[facility] Procedures Code Procedure Name Date Entry Date Standard Description CPT-27052 Wet Mount - LAB USE ONLY 12:39:03 [employer] CPT-27783 Vaginal Culture - LAB USE ONLY 12:39:03 [employer] CPT-12851 Urine Culture - LAB USE ONLY 11:52:44 [employer] CPT-70626 UA w micro - LAB USE ONLY 11:52:44 [employer]ARM [employer] CPT-69023 Postop F/U Visit 12:08:35 CDT CPT-78670 Postop F/U Visit 18:20:10 CDT CPT-A4351 Coloplast Female Cath 09:37:10 CDT CPT-60218 Urine Dip (Floor Use Only) 15:17:13 CDT CPT-86122 Dil F ureth int 15:17:13 CDT CPT-75312 Venipuncture Draw Fee 09:19:08 CDT CPT-52967 Lipid - LAB USE ONLY 09:19:07 CDT CPT-JTINJ Asp/Joint Injection 09:26:49 CDT CPT-14490 Chest 2V Frontal and Lat 14:47:43 CDT CPT-JTINJ Asp/Joint Injection 09:51:53 FARM RAN[employer]ER CPT-OV Office Visit 17:39:05 CDT CPT-OV Office Visit 15:19:50 CDT CPT-37772 Sono transvag pelvis non OB uterus ovaries cervix 18:04:34 [facility] CPT-22151 Venipuncture Draw Fee 08:55:49 [employer]ARM [employer]
--- OUTSIDE RECORDS SUMMARY | 2016-11-20 13:31 | External Medical Summary | Clinical Summary ---
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 Active NKDA Critical Inactive Adrianna Elder Conditions or Problems Problem Name Problem Onset Status Entry Provider Comment Standard Annotate Code Date Date Description ABNORMAL 626.9 Resolved Maite Gtuierrez Unspecified VAGINAL Laura ONEAL disorders of BLEEDING [...] Resolved Indigo Other malaise 05/24 07/02 Yokum PRIMER INSERTING MACHINE OPERATOR and fatigue SLEEP APNEA, 327.23 Active [...] Resolved Indigo Hypopotassemia MILD 10/29 07/02 Yo [employer]IMER INSERTING MACHINE OPERATOR Diabetes, Type 250.00 Inactive Joseph Pineda Diabetes 2 06/27 06/27 Farooq DO mellitus without mention of complication, type II or unspecified type, not stated as uncontrolled Diabetes 250.02 Active Indigo Diabetes mellitus, type 06/27um PRIMER INSERTING MACHINE OPERATOR mellitus II, without mention uncontrolled of [...] Resolved Indigo Routine gynecological 12/14 07/02 Yo PRIMER INSERTING MACHINE OPERATOR gynecological examination examination Postmenopausal 627.1 Resolved Indigo Postmenopausal bleeding 12/14 07/02 Youm PRIMER INSERTING MACHINE OPERATOR bleeding Screening for V76.51 Resolved Indigo Screening for malignant 12/26 07/02 Yokum PRIMER INSERTING MACHINE OPERATOR malignant neoplasms of neoplasms of colon colon Insomnia, 307.42 Active Indigo 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 INSERTING MACHINE OPERATOR disorder of initiating or maintaining sleep Establish care V68.89 Resolved Indigo Encounters for or get 01/16 07/02 Yo [employer]IMER INSERTING MACHINE OPERATOR other specified acquainted administrative visit purpose Weakness, left 342.90 Active Indigo Hemiplegia, side of body 06/20 06/20 Yokum [employer]IMER INSERTING MACHINE OPERATOR unspecified, affecting unspecified side TIA 435.9 Active Indigo Unspecified 06/20 07/02 Yokum PRIMER INSERTING MACHINE OPERATOR transient cerebral ischemia Knee pain, 719.46 Active Indigo Pain in joint bilateral 06/20 07/02 Yokum PRIMER INSERTING MACHINE OPERATOR involving lower leg Bronchitis 490 Active Jillina Bronchitis, not 07/23 07/23 Frazell specified as PRIMER INSERTING MACHINE OPERATOR acute or chronic ABNORMAL VAGINAL ICD-626.9 Inactive Maite Matt Sanchez BLEEDING PhD SCABIES ICD-133.0 Inactive Maite C Laura MD PhD FATIGUE ICD-780.79 Inactive Indigo Yokum PRIMER INSERTING MACHINE OPERATOR OTH GENERAL ICD-V70.3 Inactive Maite C Laura MEDICAL MD PhD EXAMINATION ADMIN PURPOSES OTHER ABNORMAL ICD-790.29 Inactive Maite C Laura GLUCOSE MD PhD ACUTE BRONCHITIS ICD-466.0 Inactive Maite C Laura PhD HYPOKALEMIA, MILD ICD-276.8 Inactive Indigo Yokum PRIMER INSERTING MACHINE OPERATOR Sinusitis, ICD-461.1 Inactive Ismael Coyne frontal, acute Amandeep ONEAL Laryngitis, acute ICD-464.00 Inactive Ismael Coyne Amandeep ONEAL Routine ICD-V72.31 Inactive Indigo Yokum gynecological PRIMER INSERTING MACHINE OPERATOR examination Postmenopausal ICD-627.1 Inactive Indigo Yokum 2015 bleeding PRIMER INSERTING MACHINE OPERATOR Screening for ICD-V76.51 Inactive Indigo Yokum 2015 malignant PRIMER INSERTING MACHINE OPERATOR neoplasms of colon Establish care or ICD-V68.89 Inactive Indigo Yokum get acquainted PRIMER INSERTING MACHINE OPERATOR visit Medication List Medication Instructions Start Stop Generic NDC Status Provider Patient Date Date Name Instruction AZITHROMYCIN 2 po AZITHROMYCIN 10143988646 Active Jillina Active 250 MG TABS qd x Frazell 1 PRIMER INSERTING MACHINE OPERATOR day, then 1 po qd x 4 days PREDNISONE 20 2 PREDNISONE 14509725474 Active Jillina Active MG TAB pills Frazell daily PRIMER INSERTING MACHINE OPERATOR x 4 days PIOGLITAZONE take PIOGLITAZONE 38588769634 Active Maliheh Active HCL 30 MG one a HCL Ziglari ORAL TABS day BARTENDERS JANUVIA 100 1 SITAGLIPTIN 43984059287 No Indigo Active MG TABS table PHOSPHATE Longer Yokum t by Active PRIMER INSERTING MACHINE OPERATOR mouth daily ATORVASTATIN 1 ATORVASTATIN 25075751709 Active Indigo Active CALCIUM 10 MG pill CALCIUM Yokum TABS by PRIMER INSERTING MACHINE OPERATOR mouth night ly, for lavelle stero l TROKENDI XR 1 tab TOPIRAMATE 55360556250 Active Indigo Active 100 MG ORAL daily Yokum [id number] PRIMER INSERTING MACHINE OPERATOR ASPIRIN 81 MG 1 po ASPIRIN 64867704471 Active Indigo Active ORAL TABS qd Yokum PRIMER INSERTING MACHINE OPERATOR NITROFURANTOI One NITROFURANTOI 70933546448 No Indigo Active N MONOHYD capsu N MONOHYD Longer Yokum MACRO 100 MG le MACRO Active PRIMER INSERTING MACHINE OPERATOR CAPS BID for UTI METFORMIN HCL 2 METFORMIN HCL 86542377599 Active Indigo Active 500 MG TB24 table Yokum ts by PRIMER INSERTING MACHINE OPERATOR mouth twice daily TRAMADOL HCL 1/2 TRAMADOL HCL 15888196095 No Jillina Active 50 MG TABS po Longer Frazell tid Active PRIMER INSERTING MACHINE OPERATOR with ES Tylen ol prn pain VYVANSE 20 MG 1 LISDEXAMFETAM 50149699050 No Jillina Active ORAL CAPS table INE Longer Frazell t DIMESYLATE Active PRIMER INSERTING MACHINE OPERATOR daily for binge eatin g disor janiya LASIX 20 MG 2 FUROSEMIDE 56257789148 Active Joseph W Active TAB table Farooq DO t by mouth daily CELEBREX 200 1 CELECOXIB 65401577453 Active Joseph W Active MG CAPS table Farooq DO t by mouth daily with meals PREDNISONE 20 2 PREDNISONE 89081756100 No Joseph W Active MG TAB table Longer Farooq DO ts Active today , then 1 table t days 2-4 DIFLUCAN 100 1 FLUCONAZOLE 22505508472 No Joseph W Active MG TAB table Longer Farooq DO t by Active mouth daily x 3 days AMARYL 1 MG 1 GLIMEPIRIDE 25094024524 Active Joseph W Active ORAL TABS table Farooq DO t orall y twice daily DIFLUCAN 100 1 FLUCONAZOLE 46284650505 No Joseph W Active MG TABS table Longer Farooq DO t by Active mouth every other day for 2 doses ZOFRAN 4 MG 1 po ONDANSETRON 38742077839 Active Joseph Pineda Active TABS q6hr HCL Farooq DO PRN Nause a PREDNISONE 20 2 PREDNISONE 53018149970 No Joseph Pineda Active MG TAB tabs Longer Farooq DO daily Active for 3 days, 1 tab daily for 3 days, 1/2 tab daily for 2 days AMOXICILLIN 2 po AMOXICILLIN 52905126147 No Maite C Active 500 MG CAPS BID x Longer Madril 10 Active PhD days LISINOPRIL 20 1 LISINOPRIL 34937203574 No Maite C Active MG TABS table Longer Madril t by Active PhD mouth chilo y POTASSIUM 2 POTASSIUM 87766272489 No Joseph Pineda Active CHLORIDE CR capsu CHLORIDE Longer Farooq DO 10 MEQ CPCR le by Active mouth daily SPIRONOLACTON 1 SPIRONOLACTON 80226815685 No Joseph Pineda Active E 25 MG TAB table E Longer Farooq DO t by Active mouth daily METFORMIN HCL 1 METFORMIN HCL 44499276100 No Joseph Pineda Active 500 MG TABS table Longer Farooq DO t by Active mouth twice daily AMARYL 1 MG 1 tab GLIMEPIRIDE 60170528071 No Joseph Pineda Active TABS twice Longer Farooq DO daily Active PHENTERMINE 1 po PHENTERMINE 09427015359 No Joseph W Active HCL 37.5 MG q am HCL Longer Farooq DO TABS for Active wt. loss PROMETHAZINE 1 tab PROMETHAZINE 37427841861 No Joseph W Active HCL 25 MG by HCL Longer Farooq DO TABS mouth Active every 6 hours as neede d CIPROFLOXACIN Take CIPROFLOXACIN 56853465701 No Joseph W Active HCL 500 MG one HCL Longer Farooq DO TABS (1) Active table t by mouth twice a day ABILIFY 5 MG one ARIPIPRAZOLE 56130938921 No Joseph W Active TABS p.o. Longer Farooq DO q. Active day HYDROCHLOROTH 2 HYDROCHLOROTH 22560131710 No Joseph W Active IAZIDE 25 MG tabs IAZIDE Longer Farooq DO TABS every Active morni ng ABILIFY 2 MG 1 po ARIPIPRAZOLE 90773187873 No Joseph W Active TABS q hs Longer Farooq DO for Active major depre ssion ADIPEX-P 37.5 / PHENTERMINE 79265595885 No Casey Active MG CAPS tab HCL Longer Leonarda po q Active PA am for weigh t loss CIPRO 500 MG 1 CIPROFLOXACIN 80803712148 No Casey Active TAB table HCL Longer [place] t by Active PA mouth twice daily NECON 35 1 po NORETHINDRONE 57841910545 No Casey Active (28) 1-35 daily -ETH Longer [place] MG-MCG TABS ESTRADIOL Active PA TRAMADOL HCL 1 po TRAMADOL HCL 25860247744 No Casey Active 50 MG TABS tid Longer Leonarda with Active PA ES Tylen ol FLUCONAZOLE one FLUCONAZOLE 51576850121 No Casey Active 100 MG TABS p.o. Longer [place] q. Active PA day 2 days POTASSIUM 1 POTASSIUM 79366065485 No Casey Active CHLORIDE CR capsu CHLORIDE Longer Leonarda 10 MEQ CPCR le by Active PA mouth daily IMIPRAMINE Take IMIPRAMINE 96414678661 Active Joseph W Active HCL 50 MG 6 HCL Farooq DO TABS table ts by mouth at bedti me DIFLUCAN 100 1 FLUCONAZOLE 56270338761 No Joseph W Active MG TAB table Longer Farooq DO t by Active mouth daily METOPROLOL 1/2 METOPROLOL 53656217994 Active Joseph W Active TARTRATE 25 tab TARTRATE Farooq DO MG TABS po bid VERAPAMIL HCL 2 po VERAPAMIL HCL 97592116393 Active Joseph W Active CR 120 MG TAB bid Farooq DO CR PERMETHRIN 5 apply PERMETHRIN 66361650874 No Joseph W Active % CREA neck Longer Farooq DO to Active toes tonig ht and then rinse off in morni ng. repea t at 7 days SEROQUEL XR one QUETIAPINE 66524710006 No Joseph W Active 50 MG p.o. FUMARATE Longer Farooq DO [id number] q. Active eveni ng TRAMADOL HCL 1-2 TRAMADOL HCL 55830907721 No Joseph W Active 50 MG TABS table Longer Farooq DO ts Active every 6-8 hours as neede d for pain ALPRAZOLAM 3 one ALPRAZOLAM 30738270673 Active Indigo Active MG [id number] p.o. Yokum q.h.s PRIMER INSERTING MACHINE OPERATOR . ALPRAZOLAM XR Take ALPRAZOLAM 88425663729 No Joseph W Active [id number] 1 [id number] Longer Farooq DO table Active t by mouth at bedti me DIFLUCAN 100 1 FLUCONAZOLE 14640323853 No Joseph W Active MG TAB table Longer Farooq DO t by Active mouth daily AMBIEN 10 MG 1 tab ZOLPIDEM 24437005335 Active Afsaneh Active TAB by TARTRATE Gericke, mouth MA at bedti me as neede d for sleep DIFLUCAN 100 1 tablet DIFLUCAN 019169 FLUCONAZOLE Inactive MG TAB by mouth 100 MG TAB daily ALPRAZOLAM Take 1 ALPRAZOLAM ALPRAZOLAM Inactive XR [id number] tablet by XR [id number] mouth at [id number] bedtime TRAMADOL HCL 1-2 TRAMADOL 377699 TRAMADOL HCL Inactive 50 MG TABS tablets HCL 50 MG every 6-8 TABS hours as needed for pain SEROQUEL XR one p.o. SEROQUEL XR QUETIAPINE Inactive 50 MG q. 50 MG FUMARATE [id number] evening [id number] PERMETHRIN 5 apply PERMETHRIN 446310 PERMETHRIN Inactive % CREA neck to 5 % CREA toes tonight and then rinse off in morning. repeat at 7 days DIFLUCAN 100 1 tablet DIFLUCAN 558061 FLUCONAZOLE Inactive MG TAB by mouth 100 MG TAB daily POTASSIUM 1 capsule POTASSIUM POTASSIUM Inactive CHLORIDE CR by mouth CHLORIDE CR CHLORIDE 10 MEQ CPCR daily 10 MEQ CPCR FLUCONAZOLE one p.o. FLUCONAZOLE 19760111 FLUCONAZOLE Inactive 100 MG TABS q. day 2 100 MG TABS days TRAMADOL HCL 1 po tid TRAMADOL 729879 TRAMADOL HCL Inactive 50 MG TABS with ES HCL 50 MG Tylenol TABS NECON 1/35 1 po NECON 1/35 NORETHINDRONE- Inactive (28) 1-35 daily (28) 1-35 ETH ESTRADIOL MG-MCG TABS MG-MCG TABS CIPRO 500 MG 1 tablet CIPRO 500 548488 CIPROFLOXACIN Inactive TAB by mouth MG TAB HCL twice daily ADIPEX-P 1/2 tab ADIPEX-P 813521 PHENTERMINE Inactive 37.5 MG CAPS po q am 37.5 MG HCL for CAPS weight loss ABILIFY 2 MG 1 po q hs ABILIFY 2 125510 ARIPIPRAZOLE Inactive TABS for major MG TABS depressio n HYDROCHLOROT 2 tabs HYDROCHLORO 616902 HYDROCHLOROTHI Inactive HIAZIDE 25 every THIAZIDE 25 AZIDE MG TABS morning MG TABS ABILIFY 5 MG one p.o. ABILIFY 5 416503 ARIPIPRAZOLE Inactive TABS q. day MG TABS CIPROFLOXACI Take one CIPROFLOXAC 405068 CIPROFLOXACIN Inactive N HCL 500 MG (1) IN HCL 500 HCL TABS tablet by MG TABS mouth twice a day PROMETHAZINE 1 tab by PROMETHAZIN 073329 PROMETHAZINE Inactive HCL 25 MG mouth E HCL 25 MG HCL TABS every 6 TABS hours as needed PHENTERMINE 1 po q am PHENTERMINE 644712 PHENTERMINE Inactive HCL 37.5 MG for wt. HCL 37.5 MG HCL TABS loss TABS AMARYL 1 MG 1 tab AMARYL 1 MG 894967 GLIMEPIRIDE Inactive TABS twice TABS daily METFORMIN 1 tablet METFORMIN 442189 METFORMIN HCL Inactive HCL 500 MG by mouth HCL 500 MG TABS twice TABS daily SPIRONOLACTO 1 tablet SPIRONOLACT 854676 SPIRONOLACTONE Inactive NE 25 MG TAB by mouth ONE 25 MG daily TAB POTASSIUM 2 capsule POTASSIUM POTASSIUM Inactive CHLORIDE CR by mouth CHLORIDE CR CHLORIDE 10 MEQ CPCR daily 10 MEQ CPCR LISINOPRIL 1 tablet LISINOPRIL 561565 LISINOPRIL Inactive 20 MG TABS by mouth 20 MG TABS daily DIFLUCAN 100 1 tablet DIFLUCAN 253855 FLUCONAZOLE Inactive MG TABS by mouth 100 MG TABS every other day for 2 doses DIFLUCAN 100 1 tablet DIFLUCAN 944000 FLUCONAZOLE Inactive MG TAB by mouth 100 MG TAB daily x 3 days PREDNISONE 2 tablets PREDNISONE 252050 PREDNISONE Inactive 20 MG TAB today, 20 MG TAB then 1 tablet days 2-4 VYVANSE 20 1 tablet VYVANSE 20 LISDEXAMFETAMI Inactive MG ORAL CAPS daily for MG ORAL NE DIMESYLATE binge CAPS eating disorder TRAMADOL HCL 1/2 po TRAMADOL 087383 TRAMADOL HCL Inactive 50 MG TABS tid with HCL 50 MG ES TABS Tylenol prn pain JANUVIA 100 1 tablet JANUVIA 100 SITAGLIPTIN Inactive MG TABS by mouth MG TABS PHOSPHATE daily AMOXICILLIN 2 po BID AMOXICILLIN 518042 AMOXICILLIN Inactive 500 MG CAPS x 10 days 500 MG CAPS PREDNISONE 2 tabs PREDNISONE 315525 PREDNISONE Inactive 20 MG TAB daily for 20 MG TAB 3 days, 1 tab daily for 3 days, 1/2 tab daily for 2 days NITROFURANTO One NITROFURANT 9818651 NITROFURANTOIN Inactive IN MONOHYD capsule OIN MONOHYD [...] HGBA1C - Chemistry sodium, serum 140 mmol/L 336-543 8712/04/13 potassium, serum 3.9 mmol/L 3.5-5.2 chloride, serum [...] 198 10^3/MM^3 10*3/mm3 142-424 Lab Report: Chlamydia/GC APTIMA/[id number] - Lab chlamydia DNA probe NOT DETECTED NOT DETECTED Lab Report: Chlamydia/GC APTIMA/[id number] - Microbiology Neisseria gonorrhoeae DNA probe NOT DETECTED NOT DETECTED Lab Report: Comp. Metabolic Panel, Lipid Panel - Chemistry sodium, serum 136 mmol/L 017-200 2494/01/04 carbon dioxide, venous blood 27.0 mmol/L 21.0-32.0 potassium, serum 4.6 mmol/L 3.5-5.2 chloride, serum 98 mmol/L 98-107 blood glucose 174 mg/dL 65-110 urea nitrogen, blood 12 mg/dL 7-18 creatinine, serum 0.78 mg/dL 0.55-1.30 alanine aminotransferase (SGPT), serum 65 U/L 12-78 aspartate aminotransferase (SGOT), serum 34 U/L 15-37 calcium, serum 8.9 mg/dL 8.5-10.1 bilirubin, serum, total 0.40 mg/dL 0.00-1.00 cholesterol, serum 219 mg/dL 706-426 8633/01/04 triglyceride, serum, fasting 214 mg/dL 30-200 HDL [...] mg/g mg/g{creat} 0-29 sodium, serum 140 mmol/L 446-738 4451/07/21 potassium, serum 3.9 mmol/L 3.5-5.2 chloride, serum [...] Yes Encounters Code Encounter Date Provider Facility CPT-24770 Level 3 Est. Patient Faby Marino [facility] 14:40:56 CDT [facility] CPT-47212 Level 4 Est. Patient Arnold Berrios [facility] 17:29:53 HAND CIGAR MAKING SUPERVISOR [employer]END[employer] CPT-81036 Level 4 Est. [facility] HAND CIGAR MAKING SUPERVISOR CPT-78948 Level 3 Est. Patient Indigo Garciaomi [facility] 18:59:38 CDT CPT-33297 Level 3 Est. Patient [facility] 14:42:12 CDT -[facility] CPT-00456 Level 3 Est. Patient [facility] 22:18:20 CDT -[facility] CPT-55831 Level 3 Est. Patient [facility] 16:46:04 CDT -[facility] CPT-03906 Level 3 Est. Patient [facility] 15:39:53 CDT -[facility] CPT-46599 Level 3 Est. Patient Maite Sanchez MD [facility] 13:33:34 CDT -[facility] CPT-84580 Level 3 Est. Patient [facility] 11:37:08 CDT -[facility] CPT-34090 Level 3 Est. Patient Joseph Edwin [facility] 17:13:29 HAND CIGAR MAKING SUPERVISOR -[facility] CPT-71469 Level 3 Est. Patient Joseph Edwin [facility] 18:42:44 CDT CPT-85169 Level 3 Est. Patient [facility] 16:25:39 CDT CPT-06977 Level 3 Est. Patient Casey ARCHIBALD [facility] 09:52:45 CDT -[facility] CPT-76849 Level 3 Est. Patient [facility] 11:03:29 HAND CIGAR MAKING SUPERVISOR -[facility] CPT-83499 Level 3 Est. Patient [facility] 11:03:08 HAND CIGAR MAKING SUPERVISOR -[facility] CPT-24626 Level 3 Est. Patient [facility] 14:33:31 CDT -[facility] CPT-39572 Level 3 Est. Patient [facility] 17:05:02 HAND CIGAR MAKING SUPERVISOR -[facility] CPT-43556 Level 3 Est. Patient [facility] 17:48:06 HAND CIGAR MAKING SUPERVISOR -[facility] CPT-02842 Level 3 Est. Patient [facility] 14:59:22 HAND CIGAR MAKING SUPERVISOR -[facility] CPT-77985 Level 3 Est. Patient [facility] - 21:45:56 HAND CIGAR MAKING SUPERVISOR [place] [facility] CPT-57205 Level 3 Est. Patient [facility] 21:29:50 CDT -[facility] CPT-65964 Level 3 Est. Patient [facility] 12:41:09 CDT -[facility] Procedures Code Procedure Name Date Entry Date Standard Description CPT-19184 Chest 2V Frontal and Lat 14:47:43 CDT CPT-JTINJ Asp/Joint Injection 09:51:53 HAND CIGAR MAKING SUPERVISOR CPT-OV Office Visit 17:39:05 CDT CPT-OV Office Visit 15:19:50 CDT CPT-21250 Sono transvag pelvis non OB uterus ovaries cervix 18:04:34 CDT CPT-03472 Venipuncture Draw Fee 08:55:49 HAND CIGAR MAKING SUPERVISOR
--- OUTSIDE RECORDS SUMMARY | 2016-11-20 13:31 | External Medical Summary | Clinical Summary ---
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 NKDA Critical Inactive Adrianna Elder Conditions or Problems Problem Name Problem Onset Status Entry Provider Comment Standard Annotate Code Date Date Description ABNORMAL 626.9 Resolved Maite Gutierrez Unspecified VAGINAL Laura ONEAL disorders of BLEEDING PhD menstruation and other abnormal bleeding from female genital tract DEPRESSION, 296.33 Active oJseph Pineda Major ACUTE, Farooq DO depressive RECURRENT disorder, recurrent episode, severe degree, without mention of psychotic behavior SCABIES 133.0 Resolved Maite Gutierrez Scabies 06/23 Laura ONEAL PhD HYPERTENSION 401.9 Active Joseph Pineda Unspecified 05/24 Faroqo DO essential hypertension FATIGUE 780.79 Active Joseph [...] Resolved [facility] without mention of obstruction Binge eating 307.51 Active Joseph Pineda Bulimia nervosa disorder 08/15 08/15 Farooq DO Routine V72.31 Active Jillina Routine gynecological 12/14 12/14 [place] gynecological examination [employer] examination Postmenopausal 627.1 Active Jillina Postmenopausal bleeding 12/14 12/14 [place] bleeding [employer] Screening for V76.51 Active Ismael Coyne Screening for malignant 12/26 12/26 Amandeep malignant neoplasms of MD neoplasms of colon colon Insomnia, 307.42 Active Indigo 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 [employer] disorder of initiating or maintaining sleep Establish care V68.89 Active Indigo Encounters for or get 01/16 01/18 [place]um [employer] other specified acquainted administrative visit purpose ABNORMAL VAGINAL ICD-626.9 Inactive Maite Sanchez BLEEDING PhD SCABIES ICD-133.0 Inactive Maite Sanhcez PhD OTH GENERAL ICD-V70.3 Inactive Maite Sanchez [...] Instruction JANUVIA 100 1 tablet by SITAGLIPTIN 54717771474 Active Indigo Active MG TABS mouth daily PHOSPHATE [place] [employer]IVER METFORMIN 2 tablets METFORMIN HCL 97184640492 Active Indigo Active HCL 500 MG by mouth [place] TB24 twice daily [employer] TRAMADOL HCL 1/2 po tid 2 TRAMADOL HCL 19309792740 No Jillina Active 50 MG TABS with ES 0 Longer [place] Tylenol prn 1 Active [employer] pain 5 / 0 2 VYVANSE 20 1 tablet 2 LISDEXAMFETAMIN 90207345699 No Jillina Active MG ORAL CAPS daily for 0 E DIMESYLATE Longer [place] binge 1 Active [employer] eating 5 disorder / 0 2 LASIX 20 MG 2 tablet by FUROSEMIDE 86385504022 Active Joseph W Active TAB mouth daily Farooq DO CELEBREX 200 1 tablet by CELECOXIB 40992532103 Active Joseph W Active MG CAPS mouth daily Farooq DO with meals PREDNISONE 2 tablets 2 PREDNISONE 25731495913 No Joseph W Active 20 MG TAB today, then 0 Longer Farooq DO 1 tablet 1 Active days 2-4 5 / 0 4 / 3 DIFLUCAN 100 1 tablet by 2 FLUCONAZOLE 16465215627 No Joseph W Active MG TAB mouth daily 0 Longer Farooq DO x 3 days 1 Active 5 / 0 4 / 3 AMARYL 1 MG 1 tablet GLIMEPIRIDE 47001785749 Active Joseph W Active ORAL TABS orally Farooq DO twice daily DIFLUCAN 100 1 tablet by 2 FLUCONAZOLE 80829968869 No Joseph W Active MG TABS mouth every 0 Longer Farooq DO other day 1 Active for 2 doses 5 / 0 1 / 2 3 ZOFRAN 4 MG 1 po q6hr ONDANSETRON HCL 06957785975 Active Joseph Pineda Active TABS PRN Nausea Farooq DO PREDNISONE 2 tabs 2 PREDNISONE 36664998910 No Joseph W Active 20 MG TAB daily for 3 0 Longer Farooq DO days, 1 tab 1 Active daily for 3 4 days, 1/2 / tab daily 1 for 2 days 0 / 2 5 AMOXICILLIN 2 po BID x 2 AMOXICILLIN 06429821188 No Maite C Active 500 MG CAPS 10 days 0 Longer Madril 1 Active PhD 0 / 2 0 LISINOPRIL 1 tablet by 2 LISINOPRIL 89329267133 No Maite C Active 20 MG TABS mouth 0 Longer Madril daily 1 Active PhD 0 0 POTASSIUM 2 capsule 2 POTASSIUM 92377362426 No Joseph Pineda Active CHLORIDE CR by mouth 0 CHLORIDE Longer 10 MEQ CPCR daily 1 Active 4 / 0 8 / 2 9 SPIRONOLACTO 1 tablet by 2 SPIRONOLACTONE 74117546532 No Joseph Pineda Active NE 25 MG TAB mouth daily 0 Longer Farooq 1 Active 4 / 0 8 / 2 9 METFORMIN 1 tablet 2 METFORMIN HCL 36151049829 No Joseph Pineda Active HCL 500 MG by mouth 0 Longer [facility] TABS twice daily 1 Active 4 / 0 8 / 2 9 AMARYL 1 MG 1 tab twice 2 GLIMEPIRIDE 79449768283 No Joseph Pineda Active TABS daily 0 Longer Farooq 1 Active 4 / 0 8 / 2 9 PHENTERMINE 1 po q am 2 PHENTERMINE HCL 63202533899 No Joseph Pineda Active HCL 37.5 MG for wt. 0 Longer Farooq DO TABS loss 1 Active 3 / 1 2 / 2 3 PROMETHAZINE 1 tab by 2 PROMETHAZINE 70808607079 No Joseph W Active HCL 25 MG mouth every 0 HCL Longer [facility] TABS 6 hours as 1 Active needed 3 / 0 9 / 0 9 CIPROFLOXACI Take one 2 CIPROFLOXACIN 98355726745 No Joseph W Active N HCL 500 MG (1) tablet 0 HCL Longer Farooq DO TABS by mouth 1 Active twice a day 3 / 0 9 / 0 9 ABILIFY 5 MG one p.o. q. 2 ARIPIPRAZOLE 72025664641 No Joseph W Active TABS day 0 Longer Farooq DO 1 Active 3 / 0 9 / 0 9 HYDROCHLOROT 2 tabs 2 HYDROCHLOROTHIA 22973419929 No Joseph W Active HIAZIDE 25 every 0 ZIDE Longer Farooq DO MG TABS morning 1 Active 3 / 0 6 / 2 7 ABILIFY 2 MG 1 po q hs 2 ARIPIPRAZOLE 09248000162 No Joseph W Active TABS for major 0 Longer Farooq depression 1 Active 3 / 0 5 / 0 7 ADIPEX-P 1/2 tab po 2 PHENTERMINE HCL 82689187555 No Casey Active 37.5 MG CAPS q am for 0 Longer [place] weight loss 1 Active PA 3 / 0 5 / 0 1 CIPRO 500 MG 1 tablet by 2 CIPROFLOXACIN 43473897176 No Casey Active TAB mouth twice 0 HCL Longer [place] daily 1 Active PA 3 / 0 5 / 0 1 NECON 35 1 po daily 2 NORETHINDRONE-E 36396948988 No Casey Active () -35 0 ESTRADIOL Longer [place] MG-MCG TABS 1 Active PA 3 / 0 5 / 0 1 TRAMADOL HCL 1 po tid 2 TRAMADOL HCL 59808680067 No Casey Active 50 MG TABS with ES 0 Longer [place] Tylenol 1 Active PA 3 / 0 5 / 0 1 FLUCONAZOLE one p.o. q. 2 FLUCONAZOLE 87776415780 No Casey Active 100 MG TABS day 2 days 0 Longer [place] 1 Active PA 3 / 0 5 / 0 1 POTASSIUM 1 capsule 2 POTASSIUM 12429566816 No Casey Active CHLORIDE CR by mouth 0 CHLORIDE Longer 10 MEQ CPCR daily 1 Active PA 3 / 0 5 / 0 1 IMIPRAMINE Take 6 IMIPRAMINE HCL 40207780851 Active Joseph W Active HCL 50 MG tablets by [facility] TABS mouth at bedtime DIFLUCAN 100 1 tablet by 2 FLUCONAZOLE 15260997156 No Joseph W Active MG TAB mouth daily 0 Longer Farooq DO 1 Active 2 / 0 2 / 2 4 METOPROLOL 1/2 tab po METOPROLOL 82873740094 Active Joseph W Active TARTRATE 25 bid TARTRATE Farooq DO MG TABS VERAPAMIL 2 po bid VERAPAMIL HCL 29393326097 Active Joseph W Active HCL CR 120 Farooq DO MG TAB CR PERMETHRIN 5 apply neck 2 PERMETHRIN 02106891481 No Joseph W Active % CREA to toes 0 Longer Farooq DO tonight and 1 Active then rinse 2 off in / morning. 0 repeat at 7 1 days / 2 0 SEROQUEL XR one p.o. q. 2 QUETIAPINE 22798089404 No Joseph W Active 50 MG evening 0 FUMARATE Longer Farooq DO [id number] 1 Active 2 / 0 1 / 2 0 TRAMADOL HCL 1-2 tablets 2 TRAMADOL HCL 87595215310 No Joseph W Active 50 MG TABS every 6-8 0 Longer Farooq DO hours as 1 Active needed for 2 pain / 0 1 / 2 0 ALPRAZOLAM 3 one p.o. ALPRAZOLAM 59052876261 Active Joseph W Active MG [id number] q.h.s. Farooq DO ALPRAZOLAM Take 1 2 ALPRAZOLAM 45131247009 No Joseph W Active XR [id number] tablet by 0 [id number] Longer Farooq DO mouth at 1 Active bedtime 1 / 2 9 DIFLUCAN 100 1 tablet by 2 FLUCONAZOLE 40034649467 No Joseph W Active MG TAB mouth daily 0 Longer Farooq DO 1 Active 0 / 0 6 AMBIEN 10 MG 1 tab by ZOLPIDEM 91198997632 Active Joseph W Active TAB mouth at TARTRATE Farooq DO bedtime as needed for sleep DIFLUCAN 100 1 tablet DIFLUCAN 676914 FLUCONAZOLE Inactive MG TAB by mouth 100 MG TAB daily ALPRAZOLAM Take 1 ALPRAZOLAM ALPRAZOLAM Inactive XR [id number] tablet by XR [id number] mouth at [id number]-TGT bedtime TRAMADOL HCL 1-2 TRAMADOL 201079 TRAMADOL HCL Inactive 50 MG TABS tablets HCL 50 MG every 6-8 TABS hours as needed for pain SEROQUEL XR one p.o. SEROQUEL XR QUETIAPINE Inactive 50 MG q. evening 50 MG FUMARATE [id number] PERMETHRIN 5 apply neck PERMETHRIN 241500 PERMETHRIN Inactive % CREA to toes 5 % CREA tonight and then rinse off in morning. repeat at 7 days DIFLUCAN 100 1 tablet DIFLUCAN 816548 FLUCONAZOLE Inactive MG TAB by mouth 100 MG TAB daily POTASSIUM 1 capsule POTASSIUM POTASSIUM Inactive CHLORIDE CR by mouth CHLORIDE CR CHLORIDE 10 MEQ CPCR daily 10 MEQ CPCR FLUCONAZOLE one p.o. FLUCONAZOLE 19760111 FLUCONAZOLE Inactive 100 MG TABS q. day 2 100 MG TABS days TRAMADOL HCL 1 po tid TRAMADOL 217374 TRAMADOL HCL Inactive 50 MG TABS with ES HCL 50 MG Tylenol TABS NECON 1/35 1 po daily NECON 1/35 NORETHINDRONE- Inactive (28) 1-35 (28) 1-35 ETH ESTRADIOL MG-MCG TABS MG-MCG TABS CIPRO 500 MG 1 tablet CIPRO 500 407425 CIPROFLOXACIN Inactive TAB by mouth MG TAB HCL twice daily ADIPEX-P 1/2 tab po ADIPEX-P 098392 PHENTERMINE Inactive 37.5 MG CAPS q am for 37.5 MG HCL weight CAPS loss ABILIFY 2 MG 1 po q hs ABILIFY 2 847976 ARIPIPRAZOLE Inactive TABS for major MG TABS depression HYDROCHLOROT 2 tabs HYDROCHLORO 201689 HYDROCHLOROTHI Inactive HIAZIDE 25 every THIAZIDE 25 AZIDE MG TABS morning MG TABS ABILIFY 5 MG one p.o. ABILIFY 5 285247 ARIPIPRAZOLE Inactive TABS q. day MG TABS CIPROFLOXACI Take one CIPROFLOXAC 580768 CIPROFLOXACIN Inactive N HCL 500 MG (1) tablet IN HCL 500 HCL TABS by mouth MG TABS twice a day PROMETHAZINE 1 tab by PROMETHAZIN 644747 PROMETHAZINE Inactive HCL 25 MG mouth E HCL 25 MG HCL TABS every 6 TABS hours as needed PHENTERMINE 1 po q am PHENTERMINE 347326 PHENTERMINE Inactive HCL 37.5 MG for wt. HCL 37.5 MG HCL TABS loss TABS AMARYL 1 MG 1 tab AMARYL 1 MG 221756 GLIMEPIRIDE Inactive TABS twice TABS daily METFORMIN 1 tablet METFORMIN 500923 METFORMIN HCL Inactive HCL 500 MG by mouth HCL 500 MG TABS twice TABS daily SPIRONOLACTO 1 tablet SPIRONOLACT 878672 SPIRONOLACTONE Inactive NE 25 MG TAB by mouth ONE 25 MG daily TAB POTASSIUM 2 capsule POTASSIUM POTASSIUM Inactive CHLORIDE CR by mouth CHLORIDE CR CHLORIDE 10 MEQ CPCR daily 10 MEQ CPCR LISINOPRIL 1 tablet LISINOPRIL 807500 LISINOPRIL Inactive 20 MG TABS by mouth 20 MG TABS daily DIFLUCAN 100 1 tablet DIFLUCAN 660748 FLUCONAZOLE Inactive MG TABS by mouth 100 MG TABS every other day for 2 doses DIFLUCAN 100 1 tablet DIFLUCAN 417163 FLUCONAZOLE Inactive MG TAB by mouth 100 MG TAB daily x 3 days PREDNISONE 2 tablets PREDNISONE 240395 PREDNISONE Inactive 20 MG TAB today, 20 MG TAB then 1 tablet days 2-4 VYVANSE 20 1 tablet VYVANSE 20 LISDEXAMFETAMI Inactive MG ORAL CAPS daily for MG ORAL NE DIMESYLATE binge CAPS eating disorder TRAMADOL HCL 1/2 po tid TRAMADOL 986924 TRAMADOL HCL Inactive 50 MG TABS with ES HCL 50 MG Tylenol TABS prn pain AMOXICILLIN 2 po BID x AMOXICILLIN 900217 AMOXICILLIN Inactive 500 MG CAPS 10 days 500 MG CAPS PREDNISONE 2 tabs PREDNISONE 152251 PREDNISONE Inactive 20 MG TAB daily for [...] HGBA1C - Chemistry sodium, serum 140 mmol/L 027-177 4942/04/13 potassium, serum 3.9 mmol/L 3.5-5.2 chloride, serum [...] 4.3-6.0 Lab Report: CBC, Comp. Metabolic Panel, [facility] - Hematology leukocyte count, blood 7.0 [...] 10^3/MM^3 10*3/mm3 142-424 Lab Report: CBC, [facility] - Chemistry hemoglobin A1C, blood, [...] 198 10^3/MM^3 10*3/mm3 142-424 Lab Report: Chlamydia/GC APTIMA/[id number] - Lab chlamydia DNA probe NOT DETECTED NOT DETECTED Lab Report: Chlamydia/GC APTIMA/[id number] - Microbiology Neisseria gonorrhoeae DNA probe NOT DETECTED NOT DETECTED Lab Report: Comp. Metabolic Panel, Lipid Panel - Chemistry sodium, serum 136 mmol/L 011-610 1162/01/04 carbon dioxide, venous blood 27.0 mmol/L 21.0-32.0 potassium, serum 4.6 mmol/L 3.5-5.2 chloride, serum 98 mmol/L 98-107 blood glucose 174 mg/dL 65-110 urea nitrogen, blood 12 mg/dL 7-18 creatinine, serum 0.78 mg/dL 0.55-1.30 alanine aminotransferase (SGPT), serum 65 U/L 12-78 aspartate aminotransferase (SGOT), serum 34 U/L 15-37 calcium, serum 8.9 mg/dL 8.5-10.1 bilirubin, serum, total 0.40 mg/dL 0.00-1.00 cholesterol, serum 219 mg/dL 879-735 4838/01/04 triglyceride, serum, fasting 214 mg/dL 30-200 HDL [...] mg/g mg/g{creat} 0-29 sodium, serum 140 mmol/L 012-962 0901/07/21 potassium, serum 3.9 mmol/L 3.5-5.2 chloride, serum [...] 142-424 Encounters Code Encounter Date Provider Facility CPT-27690 Level 3 Est. Patient Indigo Sexton ALEJANDRO [facility] 18:59:38 CDT CPT-99813 Level 3 Est. Patient Joseph Pineda [facility] 14:42:12 CDT -[facility] CPT-87816 Level 3 Est. Patient Joseph Pineda [facility] 22:18:20 CDT -[facility] CPT-38732 Level 3 Est. Patient Joseph Pineda [facility] 16:46:04 CDT -[facility] CPT-08337 Level 3 Est. Patient Joseph Trivedi [facility] 15:39:53 CDT -[facility] CPT-03660 Level 3 Est. Patient Maite Sanchez MD PhD [facility] 13:33:34 CDT -[facility]HC CPT-74354 Level 3 Est. Patient Joseph Pineda [facility] 11:37:08 CDT -[facility] CPT-26465 Level 3 Est. Patient Joseph Pineda [facility] 17:13:29 MEDICAL DIR -RHC CPT-46999 Level 3 Est. Patient Joseph Edwin [facility] 18:42:44 CDT CPT-41101 Level 3 Est. Patient Joseph Edwin [facility] 16:25:39 CDT CPT-38512 Level 3 Est. Patient Casey Garzaner [facility] 09:52:45 CDT -[facility] CPT-37310 Level 3 Est. Patient Joseph Edwin [facility] 11:03:29 MEDICAL DIR -RHC CPT-25600 Level 3 Est. Patient [place] Edwin [facility] 11:03:08 MEDICAL DIR -[facility]HC CPT-00208 Level 3 Est. Patient [facility] 14:33:31 CDT -[facility] CPT-81150 Level 3 Est. Patient [facility] 17:05:02 MEDICAL DIR -[facility]HC CPT-28779 Level 3 Est. Patient [facility] 17:48:06 MEDICAL DIR -[facility]HC CPT-26405 Level 3 Est. Patient [facility] 14:59:22 MEDICAL DIR -RHC CPT-48671 Level 3 Est. Patient [facility] - 21:45:56 MEDICAL DIR [facility] CPT-28320 Level 3 Est. Patient [facility] 21:29:50 CDT -RHC CPT-29561 Level 3 Est. Patient [facility] 12:41:09 CDT -RHC Procedures Code Procedure Name Date Entry Date Standard Description CPT-OV Office Visit 17:39:05 CDT CPT-OV Office Visit 15:19:50 CDT CPT-32701 Sono transvag pelvis non OB uterus ovaries cervix 18:04:34 CDT CPT-73870 Venipuncture Draw Fee 08:55:49 MEDICAL DIR
--- OUTSIDE RECORDS SUMMARY | 2016-11-20 13:32 | External Medical Summary | Clinical Summary ---
:1965 Author Organization [facility] [employer] Address [address] [address] Phone Allergies, Adverse Reactions, Alerts Allergy Name Reaction Description Start Date Severity Status Provider VERSED States jsut about Critical Active Gloria Saavedra OPTICS TECHNICAL OFFICER killed her NKDA Critical Active Indigo Yokum ATTACHE NKDA Critical No Longer Indigo Yokum ATTACHE Active NKDA Critical Inactive Adrianna Elder Conditions [...] Resolved Indigo Other malaise 05/24 07/02 Yokum ATTACHE and fatigue SLEEP APNEA, 327.23 Active Joseph Pineda Obstructive OBSTRUCTIVE, 06/27 06/27 Farooq DO sleep apnea MILD (adult) (pediatric) OVERWEIGHT 278.02 Inactive Joseph Pineda Overweight 06/28 06/28 Farooq DO Obesity 278.00 Active Indigo Obesity, 06/28 10/18 Yokum ATTACHE unspecified OTH GENERAL V70.3 Resolved Maite Gutierrez Other general MEDICAL Laura ONEAL medical EXAMINATION PhD examination for ADMIN administrative PURPOSES purposes OTHER 790.29 Resolved Maite C Other abnormal ABNORMAL 05/20 Laura ONEAL glucose GLUCOSE PhD ACUTE 466.0 Resolved Maite Gutierrez Acute bronchitis BRONCHITIS 09/02 Laura ONEAL PhD DEPENDENT 782.3 Resolved Indigo Edema EDEMA, LEGS, 10/29 10/18 Yokum [place] BILATERAL HYPOKALEMIA, 276.8 Resolved Indigo Hypopotassemia MILD 10/29 07/02 Yokum ATTAC[place] Diabetes, 250.00 Inactive Joseph Pineda Diabetes Type 2 06/27 06/27 Farooq DO mellitus without mention of complication, type II or unspecified type, not stated as uncontrolled Diabetes 250.02 Resolved Indigo Diabetes mellitus, 06/27 10/18 Yokum ATTACHE mellitus without type II, mention of uncontrolled [...] Resolved Indigo Routine gynecological 12/14 07/02 Yokum ATTACHE gynecological examination examination Postmenopausa 627.1 Resolved Indigo Postmenopausal l bleeding 12/14 07/02 Yokum ATTACHE bleeding Screening for V76.51 Resolved Indigo Screening for malignant 12/26 07/02 Yokum ATTACHE malignant neoplasms of neoplasms of colon colon Insomnia, 307.42 Active Indigo 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 initiating or maintaining sleep Establish V68.89 Resolved Indigo Encounters for care or get 01/16 07/02 Yokum ATTACHE other specified acquainted administrative visit purpose Weakness, 342.90 Resolved Indigo Hemiplegia, left side of 06/20 10/18 Yokum ATTACHE unspecified, body affecting unspecified side TIA 435.9 Active Indigo Unspecified 06/20 07/02 Yokum ATTACHE transient cerebral ischemia Knee pain, 719.46 Active Indigo Pain in joint bilateral 06/20 10/18 Yokum ATTACHE involving lower leg Bronchitis 490 Resolved Indigo Bronchitis, not 07/23 10/18 Yokum ATTACHE specified as acute or chronic Diabetes 357.2 Active Maliheh Polyneuropathy mellitus, 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 Knee pain, 719.46 Active Indigo Pain in joint right 06/20 10/18 Yokum ATTACHE involving lower leg Jesi 112.3 Active Indigo Candidiasis of intertrigo 10/09 10/18 Yokum ATTACHE skin and nails Hyperlipidemi 272.4 Active Anne Other and a 12/24 12/24 Neil unspecified RMA hyperlipidemia Incontinence, 788.33 Active Indigo Mixed mixed, 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 ATTACHE incontinence urge/stress (female) (male) Female stress 625.6 Active Yury Monaco Stress incontinence 01/03 01/03 Cy patel MD female Vaginal odor 623.8 Active Gloria Other specified 05/28 05/28 Naff OPTICS TECHNICAL OFFICER noninflammatory disorders of vagina Urinary tract 599.0 Active Indigo Urinary tract infection 05/28 05/28 Yok ATTACHE infection, site not specified Urine odor 791.9 Active Indigo Other 05/28 06/26 Yokum ATTACHE nonspecific findings on examination of urine ABNORMAL VAGINAL ICD-626.9 Inactive Maite Sanchez BLEEDING PhD SCABIES ICD-133.0 Inactive Maite Sanchez PhD FATIGUE ICD-780.79 Inactive Indigo Yokum ATTACHE OTH GENERAL ICD-V70.3 Inactive Maite Sanchez MEDICAL PhD EXAMINATION ADMIN PURPOSES OTHER ABNORMAL ICD-790.29 Inactive Maite Sanchez GLUCOSE MD PhD ACUTE BRONCHITIS ICD-466.0 Inactive Maite Sanchez PhD DEPENDENT EDEMA, ICD-782.3 Inactive Indigo Yokum LEGS, BILATERAL ATTACHE HYPOKALEMIA, MILD ICD-276.8 Inactive Indigo Yokum ATTACHE Diabetes mellitus, ICD-250.02 Inactive Indigo Yokum type II, ATTACHE uncontrolled Sinusitis, ICD-461.1 Inactive Ismael Coyne frontal, acute Amandeep ONEAL Laryngitis, acute ICD-464.00 Inactive Ismael Coyne Amandeep ONEAL Routine ICD-V72.31 Inactive Indigo Yokum gynecological ATTACHE examination Postmenopausal ICD-627.1 Inactive Indigo Yokum 2015 bleeding ATTACHE Screening for ICD-V76.51 Inactive Indigo Yokum 2015 malignant ATTACHE neoplasms of colon Establish care or ICD-V68.89 Inactive Indigo Yokum get acquainted ATTACHE visit Weakness, left ICD-342.90 Inactive Indigo Yokum side of body ATTACHE Bronchitis ICD-490 Inactive Indigo Yokum ATTACHE Medication List Medication Instructions Start Stop Generic NDC Status Provider Patient Date Date Name Instruction REGINALDRE 5 1 tablet SOLIFENACIN 64556050380 Active J Carlos Enrique Active MG TABS daily SUCCINATE Cy ONEAL CIPRO 250 MG 1 tablet 2 CIPROFLOXACIN 25218072076 No Indigo Active TAB by mouth 0 HCL Longer Yokum twice 1 Active ATTACHE daily 7 METFORMIN 2 tablets 2 METFORMIN HCL 15317751074 No Indigo Active HCL 500 MG by mouth 0 Longer Yokum TB24 twice 1 Active ATTACHE daily 2 AMARYL 1 MG 1 tablet 2 GLIMEPIRIDE 95280311459 No Indigo Active ORAL TABS orally 0 Longer Yokum twice 1 Active ATTACHE daily 2 NYSTATIN apply to NYSTATIN 44876274374 Active Indigo Active 876862 rash TID Yokum UNIT/GM CREA PRN ATTACHE TROKENDI XR 2 tab TOPIRAMATE 96900320772 Active Maliheh Active 100 MG ORAL daily Ziglari [id number] CREW ATTENDANT METOPROLOL 1 tab po METOPROLOL 28752988565 Active Indigo Active TARTRATE 25 bid TARTRATE Yokum MG TABS ATTACHE AZITHROMYCIN 2 po qd x 2 AZITHROMYCIN 17644233897 No Jillina Active 250 MG TABS 1 day, 0 Longer Frazell then 1 po 1 Active ATTACHE qd x 4 6 days / 0 3 / 2 6 PREDNISONE 2 pills 2 PREDNISONE 18175493052 No Jillina Active 20 MG TAB daily x 4 0 Longer Frazell days 1 Active ATTACHE 6 / 0 3 / 2 5 PIOGLITAZONE take one a PIOGLITAZONE 11833238621 Active Maliheh Active HCL 30 MG day HCL Ziglari ORAL TABS CREW ATTENDANT JANUVIA 100 1 tablet 2 SITAGLIPTIN 95892473341 No Indigo Active MG TABS by mouth 0 PHOSPHATE Longer Yokum daily 1 Active ATTACHE 6 / 0 2 / 1 6 ATORVASTATIN 1 pill by ATORVASTATIN 23063917111 Active Indigo Active CALCIUM 10 mouth CALCIUM Yokum MG TABS nightly, ATTACHE for cholestero l ASPIRIN 81 1 po qd ASPIRIN 54173508502 Active Indigo Active MG ORAL TABS Yokum ATTACHE NITROFURANTO One 2 NITROFURANTOIN 67367339723 No Indigo Active IN MONOHYD capsule 0 MONOHYD MACRO Longer Yokum MACRO 100 MG BID for 1 Active ATTACHE CAPS UTI 6 / 0 / 3 TRAMADOL HCL 1/2 po tid 2 TRAMADOL HCL 86180996152 No Jillina Active 50 MG TABS with ES 0 Longer [place]ell Tylenol 1 Active ATTACHE prn pain 5 / 0 2 VYVANSE 20 1 tablet 2 LISDEXAMFETAMIN 07986808116 No Jillina Active MG ORAL CAPS daily for 0 E DIMESYLATE Longer Frazell binge 1 Active ATTACHE eating 5 disorder / 0 2 LASIX 20 MG 2 tablet FUROSEMIDE 45552261129 Active Indigo Active TAB by mouth Yokum daily ATTACHE CELEBREX 200 1 tablet CELECOXIB 49192994017 Active Indigo Active MG CAPS by mouth Yokum daily with ATTACHE meals PREDNISONE 2 tablets 2 PREDNISONE 89880446892 No Joseph W Active 20 MG TAB today, 0 Longer Farooq DO then 1 1 Active tablet 5 days 2-4 / 0 4 / 1 3 DIFLUCAN 100 1 tablet 2 FLUCONAZOLE 44391840857 No Joseph W Active MG TAB by mouth 0 Longer Farooq DO daily x 3 1 Active days 5 / 0 4 / 1 3 DIFLUCAN 100 1 tablet 2 FLUCONAZOLE 17612051928 No Joseph W Active MG TABS by mouth 0 Longer Farooq DO every 1 Active other day 5 for 2 / doses 0 1 / 2 3 ZOFRAN 4 MG 1 po q6hr ONDANSETRON HCL 14472799197 Active Joseph W Active TABS PRN Nausea Farooq DO PREDNISONE 2 tabs 2 PREDNISONE 52683621577 No Joseph W Active 20 MG TAB daily for 0 Longer Farooq DO 3 days, 1 1 Active tab daily 4 for 3 / days, 1/2 1 tab daily 0 for 2 days / 2 5 AMOXICILLIN 2 po BID x 2 AMOXICILLIN 04964304999 No Maite C Active 500 MG CAPS 10 days 0 Longer Laura ONEAL 1 Active PhD 0 / 2 0 LISINOPRIL 1 tablet 2 LISINOPRIL 73036699708 No Maite C Active 20 MG TABS by mouth 0 Longer Kimberlyl MD daily 1 Active PhD 0 / 0 POTASSIUM 2 capsule 2 POTASSIUM 95221145357 No Joseph W Active CHLORIDE CR by mouth 0 CHLORIDE Longer Farooq DO 10 MEQ CPCR daily 1 Active 4 / 0 8 / 2 9 SPIRONOLACTO 1 tablet 2 SPIRONOLACTONE 32494740416 No Joseph W Active NE 25 MG TAB by mouth 0 Longer Farooq DO daily 1 Active 4 / 0 8 2 9 METFORMIN 1 tablet 2 METFORMIN HCL 12110915412 No Joseph W Active HCL 500 MG by mouth 0 Longer Farooq DO TABS twice 1 Active daily 4 / 0 8 / 2 9 AMARYL 1 MG 1 tab 2 GLIMEPIRIDE 41182102868 No Joseph W Active TABS twice 0 Longer Farooq DO daily 1 Active 4 / 0 8 / 2 9 PHENTERMINE 1 po q am 2 PHENTERMINE HCL 58820271530 No Joseph W Active HCL 37.5 MG for wt. 0 Longer Farooq DO TABS loss 1 Active 3 / 1 2 / 2 3 PROMETHAZINE 1 tab by 2 PROMETHAZINE 82395470577 No Joseph W Active HCL 25 MG mouth 0 HCL Longer Farooq DO TABS every 6 1 Active hours as 3 needed / 0 9 / 0 9 CIPROFLOXACI Take one 2 CIPROFLOXACIN 39420089815 No Joseph W Active N HCL 500 MG (1) tablet 0 HCL Longer Farooq DO TABS by mouth 1 Active twice a 3 day / 0 9 / 0 9 ABILIFY 5 MG one p.o. 2 ARIPIPRAZOLE 40463739574 No Joseph W Active TABS q. day 0 Longer Farooq DO 1 Active 3 / 0 9 / 0 9 HYDROCHLOROT 2 tabs 2 HYDROCHLOROTHIA 25955469475 No Joseph W Active HIAZIDE 25 every 0 ZIDE Longer Farooq DO MG TABS morning 1 Active 3 / 0 6 / 2 7 ABILIFY 2 MG 1 po q hs 2 ARIPIPRAZOLE 09449596949 No Joseph W Active TABS for major 0 Longer [facility] depression 1 Active 3 / 0 5 / 0 7 ADIPEX-P 1/2 tab po 2 PHENTERMINE HCL 44100165121 No Casey Active 37.5 MG CAPS q am for 0 Longer [facility] weight 1 Active loss 3 / 0 5 / 0 1 CIPRO 500 MG 1 tablet 2 CIPROFLOXACIN 51422340701 No Casey Active TAB by mouth 0 HCL Longer [facility] twice 1 Active daily 3 / 0 5 / 0 1 NECON 1 po daily 2 NORETHINDRONE-E 70196455634 No Casey Active () - 0 ESTRADIOL Longer [facility] MG-MCG TABS 1 Active 3 / 0 5 / 0 1 TRAMADOL HCL 1 po tid 2 TRAMADOL HCL 42359774631 No Casey Active 50 MG TABS with ES 0 Longer [facility] Tylenol 1 Active 3 / 0 5 / 0 1 FLUCONAZOLE one p.o. 2 FLUCONAZOLE 82684859752 No Casey Active 100 MG TABS q. day 2 0 Longer [facility] days 1 Active 3 / 0 5 / 0 1 POTASSIUM 1 capsule 2 POTASSIUM 32345194841 No Casey Active CHLORIDE CR by mouth 0 CHLORIDE Longer [facility] 10 MEQ CPCR daily 1 Active 3 / 0 5 / 0 1 IMIPRAMINE Take 6 IMIPRAMINE HCL 66559404640 Active Indigo Active HCL 50 MG tablets by Yokum TABS mouth at ATTACHE bedtime DIFLUCAN 100 1 tablet 2 FLUCONAZOLE 14007969351 No Joseph W Active MG TAB by mouth 0 Longer [facility] daily 1 Active 2 / 0 2 / 2 4 VERAPAMIL 2 po bid VERAPAMIL HCL 44683553572 Active Indigo Active HCL CR 120 Yokum MG TAB CR ATTACHE PERMETHRIN 5 apply neck 2 PERMETHRIN 90346183706 No Joseph W Active % CREA to toes 0 Longer [facility] tonight 1 Active and then 2 rinse off / in 0 morning. 1 repeat at / 7 days 2 0 SEROQUEL XR one p.o. 2 QUETIAPINE 62163461503 No Joseph W Active 50 MG q. evening 0 FUMARATE Longer Farooq DO [id number] 1 Active 2 / 0 1 / 2 0 TRAMADOL HCL 1-2 2 TRAMADOL HCL 05384414857 No Joseph W Active 50 MG TABS tablets 0 Longer Farooq DO every 6-8 1 Active hours as 2 needed for / pain 0 1 / 2 0 ALPRAZOLAM 3 one p.o. ALPRAZOLAM 49700250054 Active Indigo Active MG [id number] q.h.s. Yokum ATTACHE ALPRAZOLAM Take 1 2 ALPRAZOLAM 32665858685 No Joseph W Active XR [id number] tablet by 0 [id number] Longer Farooq DO mouth at 1 Active bedtime 1 / 2 9 DIFLUCAN 100 1 tablet 2 FLUCONAZOLE 36983875626 No Joseph W Active MG TAB by mouth 0 Longer Farooq DO daily 1 Active 0 / 0 6 AMBIEN 10 MG 1 tab by ZOLPIDEM 75407067444 Active Indigo Active TAB mouth at TARTRATE Yokum bedtime as ATTACHE needed for sleep DIFLUCAN 100 1 tablet DIFLUCAN 106261 FLUCONAZOLE Inactive MG TAB by mouth 100 MG TAB daily ALPRAZOLAM Take 1 ALPRAZOLAM ALPRAZOLAM Inactive XR [id number] tablet by XR [id number] mouth at [id number] bedtime TRAMADOL HCL 1-2 TRAMADOL 529058 TRAMADOL HCL Inactive 50 MG TABS tablets HCL 50 MG every 6-8 TABS hours as needed for pain SEROQUEL XR one p.o. SEROQUEL XR QUETIAPINE Inactive 50 MG q. 50 MG FUMARATE [id number] evening [id number] PERMETHRIN 5 apply PERMETHRIN 559253 PERMETHRIN Inactive % CREA neck to 5 % CREA toes tonight and then rinse off in morning. repeat at 7 days DIFLUCAN 100 1 tablet DIFLUCAN 787733 FLUCONAZOLE Inactive MG TAB by mouth 100 MG TAB daily POTASSIUM 1 capsule POTASSIUM POTASSIUM Inactive CHLORIDE CR by mouth CHLORIDE CR CHLORIDE 10 MEQ CPCR daily 10 MEQ CPCR FLUCONAZOLE one p.o. FLUCONAZOLE 19760111 FLUCONAZOLE Inactive 100 MG TABS q. day 2 100 MG TABS days TRAMADOL HCL 1 po tid TRAMADOL 219619 TRAMADOL HCL Inactive 50 MG TABS with ES HCL 50 MG Tylenol TABS NECON 35 1 po NECON NORETHINDRONE- Inactive () 1-35 daily () 1-35 ETH ESTRADIOL MG-MCG TABS MG-MCG TABS CIPRO 500 MG 1 tablet CIPRO 500 262133 CIPROFLOXACIN Inactive TAB by mouth MG TAB HCL twice daily ADIPEX-P 1/2 tab ADIPEX-P 873574 PHENTERMINE Inactive 37.5 MG CAPS po q am 37.5 MG HCL for CAPS weight loss ABILIFY 2 MG 1 po q hs ABILIFY 2 036392 ARIPIPRAZOLE Inactive TABS for major MG TABS depressio n HYDROCHLOROT 2 tabs HYDROCHLORO 020182 HYDROCHLOROTHI Inactive HIAZIDE 25 every THIAZIDE 25 AZIDE MG TABS morning MG TABS ABILIFY 5 MG one p.o. ABILIFY 5 787035 ARIPIPRAZOLE Inactive TABS q. day MG TABS CIPROFLOXACI Take one CIPROFLOXAC 656278 CIPROFLOXACIN Inactive N HCL 500 MG (1) IN HCL 500 HCL TABS tablet by MG TABS mouth twice a day PROMETHAZINE 1 tab by PROMETHAZIN 536912 PROMETHAZINE Inactive HCL 25 MG mouth E HCL 25 MG HCL TABS every 6 TABS hours as needed PHENTERMINE 1 po q am PHENTERMINE 872141 PHENTERMINE Inactive HCL 37.5 MG for wt. HCL 37.5 MG HCL TABS loss TABS AMARYL 1 MG 1 tab AMARYL 1 MG 19910808 GLIMEPIRIDE Inactive TABS twice TABS daily METFORMIN 1 tablet METFORMIN 258986 METFORMIN HCL Inactive HCL 500 MG by mouth HCL 500 MG TABS twice TABS daily SPIRONOLACTO 1 tablet SPIRONOLACT 010290 SPIRONOLACTONE Inactive NE 25 MG TAB by mouth ONE 25 MG daily TAB POTASSIUM 2 capsule POTASSIUM POTASSIUM Inactive CHLORIDE CR by mouth CHLORIDE CR CHLORIDE 10 MEQ CPCR daily 10 MEQ CPCR LISINOPRIL 1 tablet LISINOPRIL 644676 LISINOPRIL Inactive 20 MG TABS by mouth 20 MG TABS daily DIFLUCAN 100 1 tablet DIFLUCAN 757522 FLUCONAZOLE Inactive MG TABS by mouth 100 MG TABS every other day for 2 doses DIFLUCAN 100 1 tablet DIFLUCAN 655163 FLUCONAZOLE Inactive MG TAB by mouth 100 MG TAB daily x 3 days PREDNISONE 2 tablets PREDNISONE 269819 PREDNISONE Inactive 20 MG TAB today, 20 MG TAB then 1 tablet days 2-4 VYVANSE 20 1 tablet VYVANSE 20 LISDEXAMFETAMI Inactive MG ORAL CAPS daily for MG ORAL NE DIMESYLATE binge CAPS eating disorder TRAMADOL HCL 1/2 po TRAMADOL 514453 TRAMADOL HCL Inactive 50 MG TABS tid [...] TB24 daily AMOXICILLIN 2 po BID AMOXICILLIN 155383 AMOXICILLIN Inactive 500 MG CAPS x 10 days 500 MG CAPS PREDNISONE 2 tabs PREDNISONE 885465 PREDNISONE Inactive 20 MG TAB daily for 20 MG TAB 3 days, 1 tab daily for 3 days, 1/2 tab daily for 2 days NITROFURANTO One NITROFURANT 8649037 NITROFURANTOIN Inactive IN MONOHYD capsule OIN MONOHYD MONOHYD MACRO MACRO 100 MG BID for MACRO 100 CAPS UTI MG CAPS PREDNISONE 2 pills PREDNISONE 738337 PREDNISONE Inactive 20 MG TAB daily x 4 20 MG TAB days AZITHROMYCIN 2 po qd x AZITHROMYCI 3142380 AZITHROMYCIN Inactive 250 MG TABS 1 day, N 250 MG then 1 po TABS qd x 4 days CIPRO 250 MG 1 tablet CIPRO 250 728397 CIPROFLOXACIN Inactive TAB by mouth MG TAB [...] HGBA1C - Chemistry sodium, serum 140 mmol/L 710-459 7248/06/03 potassium, serum 3.9 mmol/L 3.5-5.2 chloride, serum [...] 214 10^3/MM^3 10*3/mm3 142-424 Lab Report: Chlamydia/GC APTIMA/[id number] - Lab chlamydia DNA probe NOT DETECTED NOT DETECTED Lab Report: Chlamydia/GC APTIMA/[id number] - Microbiology Neisseria gonorrhoeae DNA probe NOT DETECTED NOT DETECTED Lab Report: Lipid Panel - Chemistry cholesterol, serum 157 mg/dL 923-298 0801/08/22 triglyceride, serum, fasting 215 mg/dL 30-200 HDL [...] mg/dL Encounters Code Encounter Date Provider Facility CPT-53632 Level 4 Est. 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 [facility] [place] CPT-66948 Level 4 Est. [facility] 10:[facility] CDT [place] CPT-72260 Level 3 Est. [facility] 08:58:07 CDT CREW ATTENDANT CPT-08231 Level 3 Est. Patient Faby Marino [facility] 14:40:56 CDT [place] CPT-81672 Level 4 Est. Patient Arnold Berrios [facility] 17:29:53 BUILDING AND GROUNDS SUPERVISOR CREW ATTENDANT CPT-23849 Level 4 Est. Patient Indigo Sexton [facility] 09:51:54 BUILDING AND GROUNDS SUPERVISOR CPT-78510 Level 3 Est. Patient Indigo Sexton [facility] 18:59:38 CDT CPT-77328 Level 3 Est. Patient Joseph Pineda [facility] 14:42:12 CDT -[facility] CPT-82849 Level 3 Est. Patient Joseph Pineda [facility] 22:18:20 CDT -[facility] CPT-72268 Level 3 Est. Patient Joseph Pineda [facility] 16:46:04 CDT -[facility] CPT-48707 Level 3 Est. Patient [place] Edwin [facility] 15:39:53 CDT -[facility] CPT-95031 Level 3 Est. Patient Maite Sanchez MD [facility] 13:33:34 CDT -[facility] CPT-12794 Level 3 Est. Patient [facility] 11:37:08 CDT -[facility] CPT-86531 Level 3 Est. Patient Joseph Pineda [facility] 17:13:29 BUILDING AND GROUNDS SUPERVISOR -RHC CPT-27294 Level 3 Est. Patient Joseph Pineda [facility] 18:42:44 CDT CPT-19884 Level 3 Est. Patient Joseph Pineda [facility] 16:25:39 CDT CPT-65693 Level 3 Est. Patient Casey ARCHIBALD [facility] 09:52:45 CDT -[facility] CPT-18315 Level 3 Est. Patient Joseph Pineda [facility] 11:03:29 BUILDING AND GROUNDS SUPERVISOR -RHC CPT-78952 Level 3 Est. Patient Joseph Pineda [facility] 11:03:08 BUILDING AND GROUNDS SUPERVISOR -RHC CPT-69613 Level 3 Est. Patient Joseph Edwin [facility] 14:33:31 CDT -[facility] CPT-23260 Level 3 Est. Patient Joseph Trivedi [facility] 17:05:02 BUILDING AND GROUNDS SUPERVISOR -C CPT-00128 Level 3 Est. Patient oJseph Trivedi [facility] 17:48:06 BUILDING AND GROUNDS SUPERVISOR -R[facility] CPT-86189 Level 3 Est. Patient Joseph Trivedi [facility] 14:59:22 BUILDING AND GROUNDS SUPERVISOR -RHC CPT-54073 Level 3 Est. Patient Joseph rTivedi [facility] - 21:45:56 BUILDING AND GROUNDS SUPERVISOR [place] C CPT-69956 Level 3 Est. Patient Joseph Pineda [facility] 21:29:50 CDT -C CPT-40295 Level 3 Est. Patient Joseph Pineda [facility] 12:41:09 CDT -C Procedures Code Procedure Name Date Entry Date Standard Description CPT-37519 Wet Mount - LAB USE ONLY 12:39:03 BUILDING AND GROUNDS SUPERVISOR CPT-28206 Vaginal Culture - LAB USE ONLY 12:39:03 BUILDING AND GROUNDS SUPERVISOR CPT-59891 Urine Culture - LAB USE ONLY 11:52:44 BUILDING AND GROUNDS SUPERVISOR CPT-43635 UA w micro - LAB USE ONLY 11:52:44 BUILDING AND GROUNDS SUPERVISOR CPT-78825 Postop F/U Visit 12:08:35 CDT CPT-16503 Postop F/U Visit 18:20:10 CDT CPT-A4351 Coloplast Female Cath 09:37:10 CDT CPT-97209 Urine Dip (Floor Use Only) 15:17:13 CDT CPT-21281 Dil F ureth int 15:17:13 CDT CPT-05355 Venipuncture Draw Fee 09:19:08 CDT CPT-12616 Lipid - LAB USE ONLY 09:19:07 CDT CPT-JTINJ Asp/Joint Injection 09:26:49 CDT CPT-99636 Chest 2V Frontal and Lat 14:47:43 CDT CPT-JTINJ Asp/Joint Injection 09:51:53 BUILDING AND GROUNDS SUPERVISOR CPT-OV Office Visit 17:39:05 CDT CPT-OV Office Visit 15:19:50 CDT CPT-66958 Sono transvag pelvis non OB uterus ovaries cervix 18:04:34 CDT CPT-47307 Venipuncture Draw Fee 08:55:49 BUILDING AND GROUNDS SUPERVISOR
--- OUTSIDE RECORDS SUMMARY | 2016-11-20 13:32 | External Medical Summary | Clinical Summary ---
:1965 Author Organization [facility] [employer] Address [address] [address] Phone Allergies, Adverse Reactions, Alerts Allergy Name Reaction Description Start Date Severity Status Provider VERSED States jsut about Critical Active Gloria Saavedra FRUIT VENDOR killed her NKDA Critical Active Indigo Yokum HRIS DEVELOPER NKDA Critical No Longer Indigo Yokum HRIS DEVELOPER Active NKDA Critical Inactive Adrianna Elder Conditions [...] 311 Active Indigo Depressive chronic 09/20 Yokum HRIS DEVELOPER disorder, not elsewhere classified SCABIES 133.0 Resolved Maite Gutierrez Scabies 06/23 Laura ONEAL PhD HYPERTENSION 401.9 Active Joseph Pineda Unspecified 05/24 Farooq DO essential hypertension FATIGUE 780.79 Resolved Indigo Other malaise 05/24 07/02 Yokum HRIS DEVELOPER and fatigue SLEEP APNEA, 327.23 Active Joseph Pineda Obstructive OBSTRUCTIVE, 06/27 06/27 Farooq DO sleep apnea MILD (adult) (pediatric) OVERWEIGHT 278.02 Inactive Joseph Pineda Overweight 06/28 06/28 Farooq DO Obesity 278.00 Active Indigo Obesity, 06/28 10/18 Yokum HRIS DEVELOPER unspecified OT GENERAL V70.3 Resolved Maite C Other general MEDICAL Laura ONEAL medical EXAMINATION PhD examination for ADMIN administrative PURPOSES purposes OTHER 790.29 Resolved Maite C Other abnormal ABNORMAL 05/20 Laura ONEAL glucose GLUCOSE PhD ACUTE 466.0 Resolved Maite Gutierrez Acute bronchitis BRONCHITIS 09/02 Laura ONEAL PhD DEPENDENT 782.3 Resolved Indigo Edema EDEMA, LEGS, 10/29 10/18 Yokum HRIS DEVELOPER BILATERAL HYPOKALEMIA, 276.8 Resolved Indigo Hypopotassemia MILD 10/29 07/02 Yo HRIS DEVELOPER Diabetes, 250.00 Inactive Joseph Pineda Diabetes Type 2 06/27 06/27 Farooq DO mellitus without mention of complication, type II or unspecified type, not stated as uncontrolled Diabetes 250.02 Resolved Indigo Diabetes mellitus, 06/27 10/18 Yokum HRIS DEVELOPER mellitus without type II, mention of uncontrolled [...] Resolved Indigo Routine gynecological 12/14 07/02 Yo HRIS DEVELOPER gynecological examination examination Postmenopausa 627.1 Resolved Indigo Postmenopausal l bleeding 12/14 07/02 Yokum HRIS DEVELOPER bleeding Screening for V76.51 Resolved Indigo Screening for malignant 12/26 07/02 Yokum HRIS DEVELOPER malignant neoplasms of neoplasms of colon colon Insomnia, 307.42 Active 2015/0 Indigo 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 DEVELOPER disorder of initiating or maintaining sleep Establish V68.89 Resolved Idnigo Encounters for care or get 01/16 07/02 Yokum HRIS DEVELOPER other specified acquainted administrative visit purpose Weakness, 342.90 Resolved Indigo Hemiplegia, left side of 06/20 10/18 Yokum HRIS DEVELOPER unspecified, body affecting unspecified side TIA 435.9 Active Indigo Unspecified 06/20 07/02 Yokum HRIS DEVELOPER transient cerebral ischemia Knee pain, 719.46 Active Indigo Pain in joint bilateral 06/20 10/18 Yokum HRIS DEVELOPER involving lower leg Bronchitis 490 Resolved Indigo Bronchitis, not 07/23 10/18 Yokum HRIS DEVELOPER specified as acute or chronic Diabetes 357.2 Active Maliheh Polyneuropathy mellitus, 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 INSURANCE VERIFICATION REP 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 y Knee pain, 719.46 Resolved Indigo Pain in joint right 06/20 09/20 Yokum HRIS DEVELOPER involving lower leg Jesi 112.3 Resolved Indigo Candidiasis of intertrigo 10/09 09/20 Yokum HRIS DEVELOPER skin and nails Hyperlipidemi 272.4 Active Anne Other and a 12/24 12/24 Neil unspecified RMA hyperlipidemia Incontinence, 788.33 Resolved Indigo Mixed mixed, 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 HRIS DEVELOPER incontinence urge/stress (female) (male) Female stress 625.6 Active Yury Monaco Stress incontinence 01/03 01/03 Cy patel MD female Vaginal odor 623.8 Resolved Indigo Other specified 05/28 09/20 Yokum HRIS DEVELOPER noninflammatory disorders of vagina Urinary tract 599.0 Resolved Indigo Urinary tract infection 05/28 09/20 Yokum HRIS DEVELOPER infection, site not specified Urine odor 791.9 Resolved Indigo Other 05/28 09/20 Yokum HRIS DEVELOPER nonspecific findings on examination of urine Unspecified Resolved Indigo dyspareunia 08/19 09/20 Yokum HRIS DEVELOPER Depression Resolved Indigo 09/20 Yokum HRIS DEVELOPER Anxiety Active Indigo Anxiety state, Disorder 08/26 HRIS DEVELOPER unspecified ABNORMAL VAGINAL ICD-626.9 Inactive Maite C Laura BLEEDING PhD SCABIES ICD-133.0 Inactive Maite C Laura PhD FATIGUE ICD-780.79 Inactive Indigo Yokum HRIS DEVELOPER OTH GENERAL ICD-V70.3 Inactive Maite C Laura MEDICAL MD PhD EXAMINATION ADMIN PURPOSES OTHER ABNORMAL ICD-790.29 Inactive Maite C Ronyril GLUCOSE PhD ACUTE BRONCHITIS ICD-466.0 Inactive Maite C Laura PhD DEPENDENT EDEMA, ICD-782.3 Inactive Indigo Yokum LEGS, BILATERAL HRIS DEVELOPER HYPOKALEMIA, MILD ICD-276.8 Inactive Indigo Yokum HRIS DEVELOPER Diabetes mellitus, ICD-250.02 Inactive Indigo Yokum type II, HRIS DEVELOPER uncontrolled Sinusitis, ICD-461.1 Inactive Ismael Coyne frontal, acute Amandeep ONEAL Laryngitis, acute ICD-464.00 Inactive Ismael Coyne Amandeep ONEAL Routine ICD-V72.31 Inactive Indigo Yokum gynecological HRIS DEVELOPER examination Postmenopausal ICD-627.1 Inactive Indigo Yokum 2015 bleeding HRIS DEVELOPER Screening for ICD-V76.51 Inactive Indigo Yokum 2015 malignant HRIS DEVELOPER neoplasms of colon Establish care or ICD-V68.89 Inactive Indigo Yokum get acquainted HRIS DEVELOPER visit Weakness, left ICD-342.90 Inactive Indigo Yokum side of body HRIS DEVELOPER Bronchitis ICD-490 Inactive Indigo Yokum HRIS DEVELOPER Knee pain, right ICD-719.46 Inactive Indigo Yokum HRIS DEVELOPER Jesi intertrigo ICD-112.3 Inactive Indigo Yokum HRIS DEVELOPER Incontinence, ICD-788.33 Inactive Indigo Yokum 2016 mixed, urge/stress HRIS DEVELOPER Vaginal odor ICD-623.8 Inactive Indigo Yokum 09/20 HRIS DEVELOPER Urinary tract ICD-599.0 Inactive Indigo Yokum 09/20 infection HRIS DEVELOPER Urine odor ICD-791.9 Inactive Indigo Yokum HRIS DEVELOPER Unspecified Inactive Indigo Yokum dyspareunia HRIS DEVELOPER Depression Inactive Indigo Yokum HRIS DEVELOPER Medication List Medication Instructions Start Stop Generic NDC Status Provider Patient Date Date Name Instruction ALPRAZOLAM 3 one p.o. ALPRAZOLAM 64839971733 Active Indigo Active MG [id number] q.h.s. Yokum HRIS DEVELOPER ABILIFY 10 MG Take one ARIPIPRAZOLE 31070590358 Active Indigo Active ORAL TABS tablet Yokum daily for HRIS DEVELOPER depression CELEBREX 200 1 tablet 2 CELECOXIB 22308123802 No Indigo Active MG CAPS by mouth 0 Longer Yokum daily with 1 Active HRIS DEVELOPER meals 7 / 0 4 / 2 4 TROKENDI XR 1 tab by 2 TOPIRAMATE 42823363685 No Indigo Active 100 MG ORAL mouth 0 Longer Yokum [id number] daily 1 Active HRIS DEVELOPER 7 0 4 VESICARE 10 MG 1 pill by SOLIFENACIN 56035185814 Active J Carlos Enrique Active TABS mouth SUCCINATE Benoit daily for MD overactive bladder CIPRO 250 MG 1 tablet 2 CIPROFLOXACIN 03130836924 No Indigo Active TAB by mouth 0 HCL Longer Yokum twice 1 Active HRIS DEVELOPER daily 7 METFORMIN HCL 2 tablets 2 METFORMIN HCL 69859337019 No Indigo Active 500 MG TB24 by mouth 0 Longer Yokum twice 1 Active HRIS DEVELOPER daily 2 AMARYL 1 MG 1 tablet 2 GLIMEPIRIDE 88787045272 No Indigo Active ORAL TABS orally 0 Longer Yokum twice 1 Active HRIS DEVELOPER daily 2 NYSTATIN apply to NYSTATIN 17453214922 Active Indigo Active 709734 UNIT/GM rash TID Yokum CREA PRN HRIS DEVELOPER METOPROLOL 1 tab po METOPROLOL 27385147966 Active Indigo Active TARTRATE 25 MG bid TARTRATE Yokum TABS HRIS DEVELOPER AZITHROMYCIN 2 po qd x 2 AZITHROMYCIN 47070764057 No Jillina Active 250 MG TABS 1 day, 0 Longer Frazell then 1 po 1 Active HRIS DEVELOPER qd x 4 6 days / 0 3 / 2 6 PREDNISONE 20 2 pills 2 PREDNISONE 96244238745 No Jillina Active MG TAB daily x 4 0 Longer Frazell days 1 Active HRIS DEVELOPER 6 / 0 3 / 2 5 PIOGLITAZONE take one a PIOGLITAZONE 25348017804 Active Maliheh Active HCL 30 MG ORAL day HCL Ziglari TABS INSURANCE VERIFICATION REP JANUVIA 100 MG 1 tablet 2 SITAGLIPTIN 27706268295 No Indigo Active TABS by mouth 0 PHOSPHATE Longer Yokum daily 1 Active HRIS DEVELOPER 6 / 0 2 / 1 6 ATORVASTATIN 1 pill by ATORVASTATIN 25410840117 Active Indigo Active CALCIUM 10 MG mouth CALCIUM Yokum TABS nightly, HRIS DEVELOPER for cholestero l ASPIRIN 81 MG 1 po qd ASPIRIN 84681055057 Active Indigo Active ORAL TABS Yokum HRIS DEVELOPER NITROFURANTOIN One 2 NITROFURANTOIN 64648487745 No Indigo Active MONOHYD MACRO capsule 0 MONOHYD MACRO Longer Yokum 100 MG CAPS BID for 1 Active HRIS DEVELOPER UTI 6 / 0 2 / 1 3 TRAMADOL HCL 1/2 po tid 2 TRAMADOL HCL 80247375426 No Jillina Active 50 MG TABS with ES 0 Longer Frazell Tylenol 1 Active HRIS DEVELOPER prn pain 5 / 0 8 2 VYVANSE 20 MG 1 tablet 2 LISDEXAMFETAMI 03799248038 No Jillina Active ORAL CAPS daily for 0 NE DIMESYLATE Longer Frazell binge 1 Active HRIS DEVELOPER eating 5 disorder / 0 2 LASIX 20 MG 2 tablet FUROSEMIDE 78412038673 Active Indigo Active TAB by mouth Yokum daily HRIS DEVELOPER PREDNISONE 20 2 tablets 2 PREDNISONE 95821533370 No Joseph W Active MG TAB today, 0 Longer Farooq DO then 1 1 Active tablet 5 days 2-4 / 0 4 3 DIFLUCAN 100 1 tablet 2 FLUCONAZOLE 42664099373 No Joseph W Active MG TAB by mouth 0 Longer Farooq DO daily x 3 1 Active days 5 / 0 4 / 3 DIFLUCAN 100 1 tablet 2 FLUCONAZOLE 75324044357 No Joseph W Active MG TABS by mouth 0 Longer Farooq DO every 1 Active other day 5 for 2 / doses 0 1 / 2 3 ZOFRAN 4 MG 1 po q6hr ONDANSETRON 66849117158 Active Josehp W Active TABS PRN Nausea HCL Farooq DO PREDNISONE 20 2 tabs 2 PREDNISONE 18622664496 No Joseph W Active MG TAB daily for 0 Longer Farooq DO 3 days, 1 1 Active tab daily 4 for 3 / days, 1/2 1 tab daily 0 for 2 days / 2 5 AMOXICILLIN 2 po BID x 2 AMOXICILLIN 15485462582 No Maite C Active 500 MG CAPS 10 days 0 Longer Madril 1 Active MD PhD 4 / 1 0 / 2 0 LISINOPRIL 20 1 tablet 2 LISINOPRIL 87845684342 No Maite C Active MG TABS by mouth 0 Longer Madril daily 1 Active MD PhD 4 0 / 1 0 POTASSIUM 2 capsule 2 POTASSIUM 68449553740 No Joseph W Active CHLORIDE CR 10 by mouth 0 CHLORIDE Longer Farooq DO MEQ CPCR daily 1 Active 4 / 0 8 / 2 9 SPIRONOLACTONE 1 tablet 2 SPIRONOLACTONE 80094225358 No Joseph W Active 25 MG TAB by mouth 0 Longer Farooq DO daily 1 Active 4 / 0 8 / 2 9 METFORMIN HCL 1 tablet 2 METFORMIN HCL 38532865788 No Joseph W Active 500 MG TABS by mouth 0 Longer Farooq DO twice 1 Active daily 4 / 0 8 / 2 9 AMARYL 1 MG 1 tab 2 GLIMEPIRIDE 66979563757 No Joseph W Active TABS twice 0 Longer Farooq DO daily 1 Active 4 / 0 8 / 2 9 PHENTERMINE 1 po q am 2 PHENTERMINE 67538769238 No Jsoeph W Active HCL 37.5 MG for wt. 0 HCL Longer Farooq DO TABS loss 1 Active 3 / 1 2 / 2 3 PROMETHAZINE 1 tab by 2 PROMETHAZINE 70118498653 No Joseph W Active HCL 25 MG TABS mouth 0 HCL Longer Farooq DO every 6 1 Active hours as 3 needed / 0 9 / 0 9 CIPROFLOXACIN Take one 2 CIPROFLOXACIN 31659531860 No Joseph W Active HCL 500 MG (1) tablet 0 HCL Longer Farooq DO TABS by mouth 1 Active twice a 3 day / 0 9 / 0 9 ABILIFY 5 MG one p.o. 2 ARIPIPRAZOLE 60285498481 No Joseph W Active TABS q. day 0 Longer Farooq DO 1 Active 3 / 0 9 / 0 9 HYDROCHLOROTHI 2 tabs 2 HYDROCHLOROTHI 60972400758 No Joseph W Active AZIDE 25 MG every 0 AZIDE Longer Farooq DO TABS morning 1 Active 3 / 0 6 / 2 7 ABILIFY 2 MG 1 po q hs 2 ARIPIPRAZOLE 77072222518 No Joseph W Active TABS for major 0 Longer Farooq DO depression 1 Active 3 / 0 5 / 0 7 ADIPEX-P 37.5 1/2 tab po 2 PHENTERMINE 69284468572 No Casey Active MG CAPS q am for 0 HCL Longer weight 1 Active PA loss 3 / 0 5 / 0 1 CIPRO 500 MG 1 tablet 2 CIPROFLOXACIN 09904074142 No Casey Active TAB by mouth 0 HCL Longer Betsy Layne twice 1 Active PA daily 3 / 0 5 / 0 1 NECON 1 po daily 2 NORETHINDRONE- 57436325073 No Casey Active () 1-35 0 ETH ESTRADIOL Longer MG-MCG TABS 1 Active PA 3 / 0 5 / 0 1 TRAMADOL HCL 1 po tid 2 TRAMADOL HCL 06516679291 No Casey Active 50 MG TABS with ES 0 Longer Tylenol 1 Active PA 3 / 0 5 / 0 1 FLUCONAZOLE one p.o. 2 FLUCONAZOLE 63214471373 No Casey Active 100 MG TABS q. day 2 0 Longer days 1 Active PA 3 / 0 5 / 0 1 POTASSIUM 1 capsule 2 POTASSIUM 23778601079 No Casey Active CHLORIDE CR 10 by mouth 0 CHLORIDE Longer MEQ CPCR daily 1 Active PA 3 / 0 5 / 0 1 IMIPRAMINE HCL Take 6 IMIPRAMINE HCL 61778505910 Active Indigo Active 50 MG TABS tablets by Yokum mouth at HRIS DEVELOPER bedtime DIFLUCAN 100 1 tablet 2 FLUCONAZOLE 01276808941 No Joseph W Active MG TAB by mouth 0 Longer Farooq DO daily 1 Active 2 / 0 2 / 2 4 VERAPAMIL HCL 2 po bid VERAPAMIL HCL 09050903322 Active Indigo Active CR 120 MG TAB Yokum CR HRIS DEVELOPER PERMETHRIN 5 % apply neck 2 PERMETHRIN 70991575141 No Joseph W Active CREA to toes 0 Longer Farooq DO tonight 1 Active and then 2 rinse off / in 0 morning. 1 repeat at / 7 days 2 0 SEROQUEL XR 50 one p.o. 2 QUETIAPINE 25463622830 No Joseph W Active MG [id number] q. evening 0 FUMARATE Longer Farooq DO 1 Active 2 / 0 1 / 2 0 TRAMADOL HCL 1-2 2 TRAMADOL HCL 00950983076 No Joseph W Active 50 MG TABS tablets 0 Longer Farooq DO every 6-8 1 Active hours as 2 needed for / pain 0 1 / 2 0 ALPRAZOLAM XR Take 1 2 ALPRAZOLAM 18551574024 No Joseph W Active [id number] tablet by 0 [id number] Longer Farooq DO mouth at 1 Active bedtime 1 / 2 9 DIFLUCAN 100 1 tablet 2 FLUCONAZOLE 94766834491 No Joseph W Active MG TAB by mouth 0 Longer Farooq DO daily 1 Active 0 / 0 6 AMBIEN 10 MG 1 tab by ZOLPIDEM 69328437435 Active Indigo Active TAB mouth at TARTRATE Yokum bedtime as HRIS DEVELOPER needed for sleep DIFLUCAN 100 1 tablet DIFLUCAN 390587 FLUCONAZOLE Inactive MG TAB by mouth 100 MG TAB daily ALPRAZOLAM Take 1 ALPRAZOLAM ALPRAZOLAM Inactive XR [id number] tablet by XR [id number] mouth at [id number] bedtime TRAMADOL HCL 1-2 TRAMADOL 834692 TRAMADOL HCL Inactive 50 MG TABS tablets HCL 50 MG every 6-8 TABS hours as needed for pain SEROQUEL XR one p.o. SEROQUEL XR QUETIAPINE Inactive 50 MG q. 50 MG FUMARATE [id number] evening [id number] PERMETHRIN 5 apply PERMETHRIN 616181 PERMETHRIN Inactive % CREA neck to 5 % CREA toes tonight and then rinse off in morning. repeat at 7 days DIFLUCAN 100 1 tablet DIFLUCAN 032034 FLUCONAZOLE Inactive MG TAB by mouth 100 MG TAB daily POTASSIUM 1 capsule POTASSIUM POTASSIUM Inactive CHLORIDE CR by mouth CHLORIDE CR CHLORIDE 10 MEQ CPCR daily 10 MEQ CPCR FLUCONAZOLE one p.o. FLUCONAZOLE 19760111 FLUCONAZOLE Inactive 100 MG TABS q. day 2 100 MG TABS days TRAMADOL HCL 1 po tid TRAMADOL 959081 TRAMADOL HCL Inactive 50 MG TABS with ES HCL 50 MG Tylenol TABS NECON 35 1 po NECON NORETHINDRONE- Inactive (28) 1-35 daily (28) 1-35 ETH ESTRADIOL MG-MCG TABS MG-MCG TABS CIPRO 500 MG 1 tablet CIPRO 500 740736 CIPROFLOXACIN Inactive TAB by mouth MG TAB HCL twice daily ADIPEX-P 1/2 tab ADIPEX-P 328745 PHENTERMINE Inactive 37.5 MG CAPS po q am 37.5 MG HCL for CAPS weight loss ABILIFY 2 MG 1 po q hs ABILIFY 2 693617 ARIPIPRAZOLE Inactive TABS for major MG TABS depressio n HYDROCHLOROT 2 tabs HYDROCHLORO 256947 HYDROCHLOROTHI Inactive HIAZIDE 25 every THIAZIDE 25 AZIDE MG TABS morning MG TABS ABILIFY 5 MG one p.o. ABILIFY 5 199058 ARIPIPRAZOLE Inactive TABS q. day MG TABS CIPROFLOXACI Take one CIPROFLOXAC 750394 CIPROFLOXACIN Inactive N HCL 500 MG (1) IN HCL 500 HCL TABS tablet by MG TABS mouth twice a day PROMETHAZINE 1 tab by PROMETHAZIN 433747 PROMETHAZINE Inactive HCL 25 MG mouth E HCL 25 MG HCL TABS every 6 TABS hours as needed PHENTERMINE 1 po q am PHENTERMINE 896292 PHENTERMINE Inactive HCL 37.5 MG for wt. HCL 37.5 MG HCL TABS loss TABS AMARYL 1 MG 1 tab AMARYL 1 MG 267173 GLIMEPIRIDE Inactive TABS twice TABS daily METFORMIN 1 tablet METFORMIN 395290 METFORMIN HCL Inactive HCL 500 MG by mouth HCL 500 MG TABS twice TABS daily SPIRONOLACTO 1 tablet SPIRONOLACT 303718 SPIRONOLACTONE Inactive NE 25 MG TAB by mouth ONE 25 MG daily TAB POTASSIUM 2 capsule POTASSIUM POTASSIUM Inactive CHLORIDE CR by mouth CHLORIDE CR CHLORIDE 10 MEQ CPCR daily 10 MEQ CPCR LISINOPRIL 1 tablet LISINOPRIL 153972 LISINOPRIL Inactive 20 MG TABS by mouth 20 MG TABS daily DIFLUCAN 100 1 tablet DIFLUCAN 994262 FLUCONAZOLE Inactive MG TABS by mouth 100 MG TABS every other day for 2 doses DIFLUCAN 100 1 tablet DIFLUCAN 797020 FLUCONAZOLE Inactive MG TAB by mouth 100 MG TAB daily x 3 days PREDNISONE 2 tablets PREDNISONE 359984 PREDNISONE Inactive 20 MG TAB today, 20 MG TAB then 1 tablet days 2-4 VYVANSE 20 1 tablet VYVANSE 20 LISDEXAMFETAMI Inactive MG ORAL CAPS daily for MG ORAL NE DIMESYLATE binge CAPS eating disorder TRAMADOL HCL 1/2 po TRAMADOL 524678 TRAMADOL HCL Inactive 50 MG TABS tid with HCL 50 MG ES TABS Tylenol prn pain JANUVIA 100 1 tablet JANUVIA 100 SITAGLIPTIN Inactive MG TABS by mouth MG TABS PHOSPHATE daily AMARYL 1 MG 1 tablet AMARYL 1 MG 884161 GLIMEPIRIDE Inactive ORAL TABS orally ORAL TABS twice daily METFORMIN 2 tablets METFORMIN METFORMIN HCL Inactive HCL 500 MG by mouth HCL 500 MG TB24 twice TB24 daily TROKENDI XR 1 tab by TROKENDI XR TOPIRAMATE Inactive 100 MG ORAL mouth 100 MG ORAL [id number] daily [id number] CELEBREX 200 1 tablet CELEBREX 316991 CELECOXIB Inactive MG CAPS by mouth 200 MG CAPS daily with meals AMOXICILLIN 2 po BID AMOXICILLIN 229669 AMOXICILLIN Inactive 500 MG CAPS x 10 days 500 MG CAPS PREDNISONE 2 tabs PREDNISONE 182153 PREDNISONE Inactive 20 MG TAB daily for 20 MG TAB 3 days, 1 tab daily for 3 days, 1/2 tab daily for 2 days NITROFURANTO One NITROFURANT 4294202 NITROFURANTOIN Inactive IN MONOHYD capsule OIN MONOHYD MONOHYD MACRO MACRO 100 MG BID for MACRO 100 CAPS UTI MG CAPS PREDNISONE 2 pills PREDNISONE 717698 PREDNISONE Inactive 20 MG TAB daily x 4 20 MG TAB days AZITHROMYCIN 2 po qd x AZITHROMYCI 1209379 AZITHROMYCIN Inactive 250 MG TABS 1 day, N 250 MG then 1 po TABS qd x 4 days CIPRO 250 MG 1 tablet CIPRO 250 478018 CIPROFLOXACIN Inactive TAB by mouth MG TAB [...] Panel - Chemistry sodium, serum 143 mmol/L 828-347 2678/06/05 carbon dioxide, venous blood 30.4 mmol/L 21.0-32.0 [...] 6.0 % 4.3-6.0 cholesterol, serum 176 mg/dL 024-233 1818/06/05 triglyceride, serum, fasting 41 mg/dL 30-200 HDL [...] 152 10^3/MM^3 10*3/mm3 142-424 Lab Report: Chlamydia/GC APTIMA/[id number] - Lab chlamydia DNA probe NOT DETECTED NOT DETECTED Lab Report: Chlamydia/GC APTIMA/[id number] - Microbiology Neisseria gonorrhoeae DNA probe NOT DETECTED NOT DETECTED Lab Report: Lipid Panel - Chemistry LDL cholesterol, serum 71 mg/dL 0-130 HDL cholesterol, serum 43 mg/dL 32-96 triglyceride, serum, fasting 215 mg/dL 30-200 cholesterol, serum 157 mg/dL 130-200 Lab Report: MICROALB/CREAT W/RATIO - Chemistry albumin/creatinine [...] negative Encounters Code Encounter Date Provider Facility CPT-96022 Level 4 Est. [facility]20 CD[facility] [place] CPT-99343 Level 3 Est. Patient Yury Benoit MD [facility] 17:20:07 CDT CPT-91172 Level 4 Est. Patient [facility] - 17:02:40 AUTO REFINISHER [place] CPT-06230 Level 4 New Patient Yury Benoit MD [facility] 15:17:12 CDT CPT-60333 Level 3 Est. Patient [facility] - 13:37:46 CDT [place] CPT-34721 Level 4 Est. [facility]06 CDT [place] CPT-[address]16 Level [address] [facility] 08:58:07 CDT [facility] CPT-98227 Level 3 Est. Patient Faby Marino [facility] 14:40:56 CDT HRIS DEVELOPER CPT-[address]009 Level [address] [facility] 17:29:53 AUTO REFINISHER INSURANCE VERIFICATION REP CPT-81697 Level 4 Est. Patient Indigo Yokum [facility] 09:51:54 AUTO REFINISHER CPT-93748 Level 3 Est. Patient Indigo Sexton [facility] 18:59:38 CDT CPT-54049 Level 3 Est. Patient Joseph [facility] 14:42:12 CDT -[facility] CPT-35326 Level 3 Est. [address] Joseph Pined[address] [facility] 22:18:20 CDT -[facility] CPT-47422 Level 3 Est. Patient Joseph [facility] 16:46:04 CDT -[facility] CPT-30393 Level 3 Est. Patient [place] [facility] 15:39:53 CDT -[facility]HC CPT-47292 Level 3 Est. Patient Maite Sanchez MD [facility] 13:33:34 CDT -RHC CPT-96003 Level [address] [facility] 11:37:08 CDT -RHC CPT-44246 Level 3 Est. Patient [place] [facility] 17:13:29 AUTO REFINISHER -RHC CPT-81841 Level 3 Est. Patient Joseph [facility] 18:42:44 CDT CPT-00616 Level 3 Est. Patient [place] [facility] 16:25:39 CDT CPT-15185 Level 3 Est. Patient Casey Brower [facility] 09:52:45 CDT -[facility] CPT-37452 Level 3 Est. Patient Joseph [facility] 11:03:29 AUTO REFINISHER -RHC CPT-75325 Level [address] [facility] 11:03:08 AUTO REFINISHER -RHC CPT-69405 Level [address] [facility] 14:33:31 CDT -RHC CPT-28632 Level [address] [facility] 17:05:02 AUTO REFINISHER -RHC CPT-98896 Level 3 Est. Patient Joseph Trivedi [facility] 17:48:06 AUTO REFINISHER -[facility] CPT-27731 Level 3 Est. Patient Joseph Trivedi [facility] 14:59:22 AUTO REFINISHER -C CPT-06119 Level 3 Est. Patient Joseph Trivedi [facility] - 21:45:56 AUTO REFINISHER Jose [facility] CPT-49563 Level [address] [facility] 21:29:50 CDT -[facility] CPT-99883 Level [address] [facility] 12:41:09 CDT -C Procedures Code Procedure Name Date Entry Date Standard Description CPT-11744 Wet Mount - LAB USE ONLY 12:39:03 AUTO REFINISHER CPT-91706 Vaginal Culture - LAB USE ONLY 12:39:03 AUTO REFINISHER CPT-48149 Urine Culture - LAB USE ONLY 11:52:44 AUTO REFINISHER CPT-59494 UA w micro - LAB USE ONLY 11:52:44 AUTO REFINISHER CPT-15994 Postop F/U Visit 12:08:35 CDT CPT-40227 Postop F/U Visit 18:20:10 CDT CPT-A4351 Coloplast Female Cath 09:37:10 CDT CPT-62892 Urine Dip (Floor Use Only) 15:17:13 CDT CPT-83996 Dil F ureth int 15:17:13 CDT CPT-55211 Venipuncture Draw Fee 09:19:08 CDT CPT-35033 Lipid - LAB USE ONLY 09:19:07 CDT CPT-JTINJ Asp/Joint Injection 09:26:49 CDT CPT-68586 Chest 2V Frontal and Lat 14:47:43 CDT CPT-JTINJ Asp/Joint Injection 09:51:53 AUTO REFINISHER CPT-OV Office Visit 17:39:05 CDT CPT-OV Office Visit 15:19:50 CDT CPT-42092 Sono transvag pelvis non OB uterus ovaries cervix 18:04:34 CDT CPT-51655 Venipuncture Draw Fee 08:55:49 AUTO REFINISHER
--- OUTSIDE RECORDS SUMMARY | 2016-11-20 13:33 | External Medical Summary | Clinical Summary ---
:1965 Author Organization [facility] [place] Address [address] [address] Phone Allergies, Adverse Reactions, Alerts Allergy Name Reaction Description Start Date Severity Status Provider VERSED States jsut about Critical Active Gloria Saavedra PRE FABRICATOR killed her NKDA Critical Active Indigo Yokum DIPPER FISH NKDA Critical No Longer Indigo Yokum DIPPER FISH Active NKDA Critical Inactive Adrianna Elder Conditions [...] Resolved Indigo Other malaise 05/24 07/02 Yokum DIPPER FISH and fatigue SLEEP APNEA, 327.23 Active Joseph Pineda Obstructive OBSTRUCTIVE, 06/27 06/27 Farooq DO sleep apnea MILD (adult) (pediatric) OVERWEIGHT 278.02 Inactive Joseph Pineda Overweight 06/28 06/28 Farooq DO Obesity 278.00 Active Indigo Obesity, 06/28 10/18 Yokum DIPPER FISH unspecified OTH GENERAL V70.3 Resolved Maite Gutierrez Other general MEDICAL Laura ONEAL medical EXAMINATION PhD examination for ADMIN administrative PURPOSES purposes OTHER 790.29 Resolved Maite C Other abnormal ABNORMAL 05/20 Laura ONEAL glucose GLUCOSE PhD ACUTE 466.0 Resolved Maite Gutierrez Acute bronchitis BRONCHITIS 09/02 Laura ONEAL PhD DEPENDENT 782.3 Resolved Indigo Edema EDEMA, LEGS, 10/29 10/18 Yokum DIPPER FISH BILATERAL HYPOKALEMIA, 276.8 Resolved Indigo Hypopotassemia MILD 10/29 07/02 Yokum DIPPER FISH Diabetes, 250.00 Inactive Joseph Pineda Diabetes Type 2 06/27 06/27 Farooq DO mellitus without mention of complication, type II or unspecified type, not stated as uncontrolled Diabetes 250.02 Resolved Indigo Diabetes mellitus, 06/27 10/18 Yokum DIPPER FISH mellitus without type II, mention of uncontrolled [...] Resolved Indigo Routine gynecological 12/14 07/02 Yokum DIPPER FISH gynecological examination examination Postmenopausa 627.1 Resolved Indigo Postmenopausal l bleeding 12/14 07/02 Yokum DIPPER FISH bleeding Screening for V76.51 Resolved Indigo Screening for malignant 12/26 07/02 Yokum DIPPER FISH malignant neoplasms of neoplasms of colon colon Insomnia, 307.42 Active Indigo 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2 Active Maliheh Polyneuropathy mellitus, 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 y Knee pain, 719.46 Active Indigo Pain in joint right 06/20 10/18 Yokum DIPPER FISH involving lower leg Jesi 112.3 Active Indigo Candidiasis of intertrigo 10/09 10/18 Yokum DIPPER FISH skin and nails Hyperlipidemi 272.4 Active Anne Other and a 12/24 12/24 Neil unspecified RMA hyperlipidemia Incontinence, 788.33 Active Indigo Mixed mixed, 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 DIPPER FISH incontinence urge/stress (female) (male) Female stress 625.6 Active Yury Monaco Stress incontinence 01/03 01/03 Cy patel MD female Vaginal odor 623.8 Active Gloria Other specified 05/28 05/28 Naff PRE FABRICATOR noninflammatory disorders of vagina Urinary tract 599.0 Active Indigo Urinary tract infection 05/28 05/28 Yok DIPPER FISH infection, site not specified Urine odor 791.9 Active Indigo Other 05/28 06/26 Yokum DIPPER FISH nonspecific findings on examination of urine ABNORMAL VAGINAL ICD-626.9 Inactive Maite Sanchez BLEEDING PhD SCABIES ICD-133.0 Inactive Maite Sanchez PhD FATIGUE ICD-780.79 Inactive Indigo Yokum DIPPER FISH OTH GENERAL ICD-V70.3 Inactive Maite Sanchez MEDICAL MD PhD EXAMINATION ADMIN PURPOSES OTHER ABNORMAL ICD-790.29 Inactive Matie Sanchez GLUCOSE PhD ACUTE BRONCHITIS ICD-466.0 Inactive Maite Sanchez PhD HYPOKALEMIA, MILD ICD-276.8 Inactive Indigo Yokum DIPPER FISH Diabetes mellitus, ICD-250.02 Inactive Indigo Yokum type II, DIPPER FISH uncontrolled DEPENDENT EDEMA, ICD-782.3 Inactive Indigo Yokum LEGS, BILATERAL DIPPER FISH Routine ICD-V72.31 Inactive Indigo Yokum gynecological DIPPER FISH examination Postmenopausal ICD-627.1 Inactive Indigo Yokum 2015 bleeding DIPPER FISH Screening for ICD-V76.51 Inactive Indigo Yokum 2015 malignant DIPPER FISH neoplasms of colon Establish care or ICD-V68.89 Inactive Nidigo Yokum get acquainted DIPPER FISH visit Weakness, left ICD-342.90 Inactive Indigo Yokum side of body DIPPER FISH Bronchitis ICD-490 Inactive Indigo Yokum DIPPER FISH Sinusitis, ICD-461.1 Inactive Ismael Coyne frontal, acute Amandeep ONEAL Laryngitis, acute ICD-464.00 Inactive Ismael Coyne Amandeep ONEAL Medication List Medication Instructions Start Stop Generic NDC Status Provider Patient Date Date Name Instruction REGINALDRE 5 1 tablet SOLIFENACIN 53759846882 Active J Carlos Enrique Active MG TABS daily SUCCINATE Cy ONEAL CIPRO 250 MG 1 tablet 2 CIPROFLOXACIN 80794709973 No Indigo Active TAB by mouth 0 HCL Longer Yokum twice 1 Active DIPPER FISH daily 7 METFORMIN 2 tablets 2 METFORMIN HCL 49073499682 No Indigo Active HCL 500 MG by mouth 0 Longer Yokum TB24 twice 1 Active DIPPER FISH daily 2 AMARYL 1 MG 1 tablet 2 GLIMEPIRIDE 53376293760 No Indigo Active ORAL TABS orally 0 Longer Yokum twice 1 Active DIPPER FISH daily 2 NYSTATIN apply to NYSTATIN 20959768419 Active Indigo Active 017014 rash TID Yokum UNIT/GM CREA PRN DIPPER FISH TROKENDI XR 2 tab TOPIRAMATE 41486003854 Active Maliheh Active 100 MG ORAL daily Ziglari [id number] 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 METOPROLOL 1 tab po METOPROLOL 97556304614 Active Indigo Active TARTRATE 25 bid TARTRATE Yokum MG TABS DIPPER FISH AZITHROMYCIN 2 po qd x 2 AZITHROMYCIN 65351849673 No Jillina Active 250 MG TABS 1 day, 0 Longer Frazell then 1 po 1 Active DIPPER FISH qd x 4 6 days / 0 3 / 2 6 PREDNISONE 2 pills 2 PREDNISONE 62413569950 No Jillina Active 20 MG TAB daily x 4 0 Longer [place] days 1 Active DIPPER FISH 6 / 0 3 / 2 5 PIOGLITAZONE take one a PIOGLITAZONE 90119218646 Active Maliheh Active HCL 30 MG day HCL Ziglari ORAL TABS 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 JANUVIA 100 1 tablet 2 SITAGLIPTIN 44340570686 No Indigo Active MG TABS by mouth 0 PHOSPHATE Longer Yokum daily 1 Active DIPPER FISH 6 / 0 2 / 1 6 ATORVASTATIN 1 pill by ATORVASTATIN 70700644472 Active Indigo Active CALCIUM 10 mouth CALCIUM Yokum MG TABS nightly, DIPPER FISH for cholestero l ASPIRIN 81 1 po qd ASPIRIN 81521883127 Active Indigo Active MG ORAL TABS Yokum DIPPER FISH NITROFURANTO One 2 NITROFURANTOIN 98668309230 No Indigo Active IN MONOHYD capsule 0 MONOHYD MACRO Longer Yokum MACRO 100 MG BID for 1 Active DIPPER FISH CAPS UTI 6 / 0 / 3 TRAMADOL HCL 1/2 po tid 2 TRAMADOL HCL 01319483490 No Jillina Active 50 MG TABS with ES 0 Longer [place] Tylenol 1 Active DIPPER FISH prn pain 5 / 0 2 VYVANSE 20 1 tablet 2 LISDEXAMFETAMIN 80332948976 No Jillina Active MG ORAL CAPS daily for 0 E DIMESYLATE Longer [place] binge 1 Active DIPPER FISH eating 5 disorder / 0 2 LASIX 20 MG 2 tablet FUROSEMIDE 71291834140 Active Indigo Active TAB by mouth Yokum daily DIPPER FISH CELEBREX 200 1 tablet CELECOXIB 24203026422 Active Indigo Active MG CAPS by mouth Yokum daily with DIPPER FISH meals PREDNISONE 2 tablets 2 PREDNISONE 53638871541 No Joseph W Active 20 MG TAB today, 0 Longer Farooq DO then 1 1 Active tablet 5 days 2-4 / 0 4 / 1 3 DIFLUCAN 100 1 tablet 2 FLUCONAZOLE 77727369420 No Joseph W Active MG TAB by mouth 0 Longer Farooq DO daily x 3 1 Active days 5 / 0 4 / 1 3 DIFLUCAN 100 1 tablet 2 FLUCONAZOLE 58254724646 No Joseph W Active MG TABS by mouth 0 Longer Farooq DO every 1 Active other day 5 for 2 / doses 0 1 / 2 3 ZOFRAN 4 MG 1 po q6hr ONDANSETRON HCL 18118790329 Active Joseph W Active TABS PRN Nausea Farooq DO PREDNISONE 2 tabs 2 PREDNISONE 37260634251 No Joseph W Active 20 MG TAB daily for 0 Longer Farooq DO 3 days, 1 1 Active tab daily 4 for 3 / days, 1/2 1 tab daily 0 for 2 days / 2 5 AMOXICILLIN 2 po BID x 2 AMOXICILLIN 98590981902 No Maite C Active 500 MG CAPS 10 days 0 Longer Laura ONEAL 1 Active PhD 0 / 2 0 LISINOPRIL 1 tablet 2 LISINOPRIL 39237516788 No Maite C Active 20 MG TABS by mouth 0 Longer Kimberlyl MD daily 1 Active PhD 0 / 0 POTASSIUM 2 capsule 2 POTASSIUM 77236885660 No Joseph W Active CHLORIDE CR by mouth 0 CHLORIDE Longer Farooq DO 10 MEQ CPCR daily 1 Active 4 / 0 8 / 2 9 SPIRONOLACTO 1 tablet 2 SPIRONOLACTONE 40070850263 No Joseph W Active NE 25 MG TAB by mouth 0 Longer Farooq DO daily 1 Active 4 / 0 8 2 9 METFORMIN 1 tablet 2 METFORMIN HCL 92840290664 No Joseph W Active HCL 500 MG by mouth 0 Longer Farooq DO TABS twice 1 Active daily 4 / 0 8 / 2 9 AMARYL 1 MG 1 tab 2 GLIMEPIRIDE 97496038743 No Joseph W Active TABS twice 0 Longer Farooq DO daily 1 Active 4 / 0 8 / 2 9 PHENTERMINE 1 po q am 2 PHENTERMINE HCL 42245665255 No Joseph W Active HCL 37.5 MG for wt. 0 Longer Farooq DO TABS loss 1 Active 3 / 1 2 / 2 3 PROMETHAZINE 1 tab by 2 PROMETHAZINE 34398725514 No Joseph W Active HCL 25 MG mouth 0 HCL Longer Farooq DO TABS every 6 1 Active hours as 3 needed / 0 9 / 0 9 CIPROFLOXACI Take one 2 CIPROFLOXACIN 55025002493 No Joseph W Active N HCL 500 MG (1) tablet 0 HCL Longer Farooq DO TABS by mouth 1 Active twice a 3 day / 0 9 / 0 9 ABILIFY 5 MG one p.o. 2 ARIPIPRAZOLE 96933063150 No Joseph W Active TABS q. day 0 Longer Farooq DO 1 Active 3 / 0 9 / 0 9 HYDROCHLOROT 2 tabs 2 HYDROCHLOROTHIA 48998302882 No Joseph W Active HIAZIDE 25 every 0 ZIDE Longer Farooq DO MG TABS morning 1 Active 3 / 0 6 / 2 7 ABILIFY 2 MG 1 po q hs 2 ARIPIPRAZOLE 17724276490 No Joseph W Active TABS for major 0 Longer [facility] depression 1 Active 3 / 0 5 / 0 7 ADIPEX-P 1/2 tab po 2 PHENTERMINE HCL 54113375627 No Casey Active 37.5 MG CAPS q am for 0 Longer [facility] weight 1 Active loss 3 / 0 5 / 0 1 CIPRO 500 MG 1 tablet 2 CIPROFLOXACIN 06685493973 No Casye Active TAB by mouth 0 HCL Longer [facility] twice 1 Active daily 3 / 0 5 / 0 1 NECON 1 po daily 2 NORETHINDRONE-E 38765682473 No Casey Active () - 0 ESTRADIOL Longer [facility] MG-MCG TABS 1 Active 3 / 0 5 / 0 1 TRAMADOL HCL 1 po tid 2 TRAMADOL HCL 59445298530 No Casey Active 50 MG TABS with ES 0 Longer [facility] Tylenol 1 Active 3 / 0 5 / 0 1 FLUCONAZOLE one p.o. 2 FLUCONAZOLE 64978692751 No Casey Active 100 MG TABS q. day 2 0 Longer [facility] days 1 Active 3 / 0 5 / 0 1 POTASSIUM 1 capsule 2 POTASSIUM 03691307814 No Casey Active CHLORIDE CR by mouth 0 CHLORIDE Longer [facility] 10 MEQ CPCR daily 1 Active 3 / 0 5 / 0 1 IMIPRAMINE Take 6 IMIPRAMINE HCL 35154845003 Active Indigo Active HCL 50 MG tablets by Yokum TABS mouth at DIPPER FISH bedtime DIFLUCAN 100 1 tablet 2 FLUCONAZOLE 94276287003 No Joseph W Active MG TAB by mouth 0 Longer [facility] daily 1 Active 2 / 0 2 / 2 4 VERAPAMIL 2 po bid VERAPAMIL HCL 06331079512 Active Indigo Active HCL CR 120 Yokum MG TAB CR DIPPER FISH PERMETHRIN 5 apply neck 2 PERMETHRIN 77874883603 No Joseph W Active % CREA to toes 0 Longer [facility] tonight 1 Active and then 2 rinse off / in 0 morning. 1 repeat at / 7 days 2 0 SEROQUEL XR one p.o. 2 QUETIAPINE 26535521068 No Joseph W Active 50 MG q. evening 0 FUMARATE Longer Farooq DO [id number] 1 Active 2 / 0 1 / 2 0 TRAMADOL HCL 1-2 2 TRAMADOL HCL 93699962506 No Joseph W Active 50 MG TABS tablets 0 Longer Farooq DO every 6-8 1 Active hours as 2 needed for / pain 0 1 / 2 0 ALPRAZOLAM 3 one p.o. ALPRAZOLAM 84439826386 Active Indigo Active MG [id number] q.h.s. Yokum DIPPER FISH ALPRAZOLAM Take 1 2 ALPRAZOLAM 66353279691 No Joseph W Active XR [id number] tablet by 0 [id number] Longer Farooq DO mouth at 1 Active bedtime 1 / 2 9 DIFLUCAN 100 1 tablet 2 FLUCONAZOLE 13979677850 No Joseph W Active MG TAB by mouth 0 Longer Farooq DO daily 1 Active 0 / 0 6 AMBIEN 10 MG 1 tab by ZOLPIDEM 01824447939 Active Indigo Active TAB mouth at TARTRATE Yokum bedtime as DIPPER FISH needed for sleep DIFLUCAN 100 1 tablet DIFLUCAN 829019 FLUCONAZOLE Inactive MG TAB by mouth 100 MG TAB daily ALPRAZOLAM Take 1 ALPRAZOLAM ALPRAZOLAM Inactive XR [id number] tablet by XR [id number] mouth at [id number] bedtime TRAMADOL HCL 1-2 TRAMADOL 979134 TRAMADOL HCL Inactive 50 MG TABS tablets HCL 50 MG every 6-8 TABS hours as needed for pain SEROQUEL XR one p.o. SEROQUEL XR QUETIAPINE Inactive 50 MG q. 50 MG FUMARATE [id number] evening [id number] PERMETHRIN 5 apply PERMETHRIN 494679 PERMETHRIN Inactive % CREA neck to 5 % CREA toes tonight and then rinse off in morning. repeat at 7 days DIFLUCAN 100 1 tablet DIFLUCAN 668422 FLUCONAZOLE Inactive MG TAB by mouth 100 MG TAB daily POTASSIUM 1 capsule POTASSIUM POTASSIUM Inactive CHLORIDE CR by mouth CHLORIDE CR CHLORIDE 10 MEQ CPCR daily 10 MEQ CPCR FLUCONAZOLE one p.o. FLUCONAZOLE 19760111 FLUCONAZOLE Inactive 100 MG TABS q. day 2 100 MG TABS days TRAMADOL HCL 1 po tid TRAMADOL 854285 TRAMADOL HCL Inactive 50 MG TABS with ES HCL 50 MG Tylenol TABS NECON 35 1 po NECON NORETHINDRONE- Inactive () 1-35 daily () 1-35 ETH ESTRADIOL MG-MCG TABS MG-MCG TABS CIPRO 500 MG 1 tablet CIPRO 500 580487 CIPROFLOXACIN Inactive TAB by mouth MG TAB HCL twice daily ADIPEX-P 1/2 tab ADIPEX-P 707137 PHENTERMINE Inactive 37.5 MG CAPS po q am 37.5 MG HCL for CAPS weight loss ABILIFY 2 MG 1 po q hs ABILIFY 2 732416 ARIPIPRAZOLE Inactive TABS for major MG TABS depressio n HYDROCHLOROT 2 tabs HYDROCHLORO 312367 HYDROCHLOROTHI Inactive HIAZIDE 25 every THIAZIDE 25 AZIDE MG TABS morning MG TABS ABILIFY 5 MG one p.o. ABILIFY 5 832259 ARIPIPRAZOLE Inactive TABS q. day MG TABS CIPROFLOXACI Take one CIPROFLOXAC 363603 CIPROFLOXACIN Inactive N HCL 500 MG (1) IN HCL 500 HCL TABS tablet by MG TABS mouth twice a day PROMETHAZINE 1 tab by PROMETHAZIN 176689 PROMETHAZINE Inactive HCL 25 MG mouth E HCL 25 MG HCL TABS every 6 TABS hours as needed PHENTERMINE 1 po q am PHENTERMINE 294764 PHENTERMINE Inactive HCL 37.5 MG for wt. HCL 37.5 MG HCL TABS loss TABS AMARYL 1 MG 1 tab AMARYL 1 MG 19910808 GLIMEPIRIDE Inactive TABS twice TABS daily METFORMIN 1 tablet METFORMIN 128778 METFORMIN HCL Inactive HCL 500 MG by mouth HCL 500 MG TABS twice TABS daily SPIRONOLACTO 1 tablet SPIRONOLACT 011052 SPIRONOLACTONE Inactive NE 25 MG TAB by mouth ONE 25 MG daily TAB POTASSIUM 2 capsule POTASSIUM POTASSIUM Inactive CHLORIDE CR by mouth CHLORIDE CR CHLORIDE 10 MEQ CPCR daily 10 MEQ CPCR LISINOPRIL 1 tablet LISINOPRIL 731903 LISINOPRIL Inactive 20 MG TABS by mouth 20 MG TABS daily DIFLUCAN 100 1 tablet DIFLUCAN 953916 FLUCONAZOLE Inactive MG TABS by mouth 100 MG TABS every other day for 2 doses DIFLUCAN 100 1 tablet DIFLUCAN 177251 FLUCONAZOLE Inactive MG TAB by mouth 100 MG TAB daily x 3 days PREDNISONE 2 tablets PREDNISONE 963174 PREDNISONE Inactive 20 MG TAB today, 20 MG TAB then 1 tablet days 2-4 VYVANSE 20 1 tablet VYVANSE 20 LISDEXAMFETAMI Inactive MG ORAL CAPS daily for MG ORAL NE DIMESYLATE binge CAPS eating disorder TRAMADOL HCL 1/2 po TRAMADOL 069837 TRAMADOL HCL Inactive 50 MG TABS tid [...] TB24 daily AMOXICILLIN 2 po BID AMOXICILLIN 595535 AMOXICILLIN Inactive 500 MG CAPS x 10 days 500 MG CAPS PREDNISONE 2 tabs PREDNISONE 571062 PREDNISONE Inactive 20 MG TAB daily for 20 MG TAB 3 days, 1 tab daily for 3 days, 1/2 tab daily for 2 days NITROFURANTO One NITROFURANT 8385054 NITROFURANTOIN Inactive IN MONOHYD capsule OIN MONOHYD MONOHYD MACRO MACRO 100 MG BID for MACRO 100 CAPS UTI MG CAPS PREDNISONE 2 pills PREDNISONE 255709 PREDNISONE Inactive 20 MG TAB daily x 4 20 MG TAB days AZITHROMYCIN 2 po qd x AZITHROMYCI 5388117 AZITHROMYCIN Inactive 250 MG TABS 1 day, N 250 MG then 1 po TABS qd x 4 days CIPRO 250 MG 1 tablet CIPRO 250 379138 CIPROFLOXACIN Inactive TAB by mouth MG TAB [...] HGBA1C - Chemistry sodium, serum 140 mmol/L 471-990 1211/06/03 potassium, serum 3.9 mmol/L 3.5-5.2 chloride, serum [...] 214 10^3/MM^3 10*3/mm3 142-424 Lab Report: Chlamydia/GC APTIMA/[id number] - Lab chlamydia DNA probe NOT DETECTED NOT DETECTED Lab Report: Chlamydia/GC APTIMA/[id number] - Microbiology Neisseria gonorrhoeae DNA probe NOT DETECTED NOT DETECTED Lab Report: Lipid Panel - Chemistry cholesterol, serum 157 mg/dL 518-512 2117/08/22 triglyceride, serum, fasting 215 mg/dL 30-200 HDL [...] mg/dL Encounters Code Encounter Date Provider Facility CPT-16698 Level 4 Est. Patient [facility] OVEN HEATER HELPER [place] CPT-79202 Level 4 New Patient Yury Benoit MD [facility] 15:17:12 CDT CPT-54665 Level 3 Est. [facility]46 CD[facility] [place] CPT-45596 Level 4 Est. [facility] 10:[facility]06 CDT [place] CPT-14676 Level 3 Est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 Patient Faby Marino [facility] 14:40:56 CDT DIPPER FISH CPT-71256 Level 4 Est. 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 Patient Indigo [facility] 09:51:54 OVEN HEATER HELPER CPT-66064 Level 3 Est. Patient Indigo [facility] 18:59:38 CDT CPT-86302 Level 3 Est. Patient Joseph Pineda [facility] 14:42:12 CDT -[facility] CPT-37774 Level 3 Est. Patient Joseph Pineda [facility] 22:18:20 CDT -[facility] CPT-77180 Level 3 Est. Patient Joseph Pineda [facility] 16:46:04 CDT -[facility] CPT-13189 Level 3 Est. Patient Hughes Edwin [facility] 15:39:53 CDT -[facility] CPT-99431 Level 3 Est. Patient Maite Sanchez MD [facility] 13:33:34 CDT -RHC CPT-01271 Level 3 Est. Patient [facility] 11:37:08 CDT -RHC CPT-03823 Level 3 Est. Patient Joseph Pineda [facility] 17:13:29 OVEN HEATER HELPER -RHC CPT-27485 Level 3 Est. Patient Joseph Pineda [facility] 18:42:44 CDT CPT-60815 Level 3 Est. Patient Joseph Pineda [facility] 16:25:39 CDT CPT-69345 Level 3 Est. Patient Casey ARCHIBALD [facility] 09:52:45 CDT -[facility] CPT-81545 Level 3 Est. Patient Joseph Pineda [facility] 11:03:29 OVEN HEATER HELPER -RHC CPT-16788 Level 3 Est. Patient Joseph Pineda [facility] 11:03:08 OVEN HEATER HELPER -RHC CPT-34816 Level 3 Est. Patient Joseph Edwin [facility] 14:33:31 CDT -[facility] CPT-19601 Level 3 Est. Patient Joseph Trivedi [facility] 17:05:02 OVEN HEATER HELPER -C CPT-61697 Level 3 Est. Patient Joseph Trivedi [facility] 17:48:06 OVEN HEATER HELPER -RHC CPT-08510 Level 3 Est. Patient Joseph Trivedi [facility] 14:59:22 OVEN HEATER HELPER -RHC CPT-85197 Level 3 Est. Patient Joseph Trivedi [facility] - 21:45:56 OVEN HEATER HELPER [place] [facility] CPT-74671 Level 3 Est. Patient Joseph Pineda [facility] 21:29:50 CDT -C CPT-82506 Level 3 Est. Patient Joseph Pineda [facility] 12:41:09 CDT -C Procedures Code Procedure Name Date Entry Date Standard Description CPT-59233 Wet Mount - LAB USE ONLY 12:39:03 OVEN HEATER HELPER CPT-01981 Vaginal Culture - LAB USE ONLY 12:39:03 OVEN HEATER HELPER CPT-01797 Urine Culture - LAB USE ONLY 11:52:44 OVEN HEATER HELPER CPT-59323 UA w micro - LAB USE ONLY 11:52:44 OVEN HEATER HELPER CPT-81446 Postop F/U Visit 12:08:35 CDT CPT-05725 Postop F/U Visit 18:20:10 CDT CPT-A4351 Coloplast Female Cath 09:37:10 CDT CPT-05789 Urine Dip (Floor Use Only) 15:17:13 CDT CPT-85441 Dil F ureth int 15:17:13 CDT CPT-55552 Venipuncture Draw Fee 09:19:08 CDT CPT-18914 Lipid - LAB USE ONLY 09:19:07 CDT CPT-JTINJ Asp/Joint Injection 09:26:49 CDT CPT-06678 Chest 2V Frontal and Lat 14:47:43 CDT CPT-JTINJ Asp/Joint Injection 09:51:53 OVEN HEATER HELPER CPT-OV Office Visit 17:39:05 CDT CPT-OV Office Visit 15:19:50 CDT CPT-22032 Sono transvag pelvis non OB uterus ovaries cervix 18:04:34 CDT CPT-96990 Venipuncture Draw Fee 08:55:49 OVEN HEATER HELPER
--- OUTSIDE RECORDS SUMMARY | 2016-11-20 13:33 | External Medical Summary | Clinical Summary ---
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 NKDA Critical Inactive Adrianna Elder Conditions [...] 464.00 Resolved [facility] without [facility] of obstruction Binge eating 307.51 Active Joseph Pineda Bulimia nervosa disorder 08/15 08/15 Farooq DO Routine V72.31 Active Jillina Routine gynecological 12/14 12/14 [place] gynecological examination ASSOCIATE PROGRAMMER ANALYST examination Postmenopausal 627.1 Active Jillina Postmenopausal bleeding 12/14 12/14 [place] bleeding ASSOCIATE PROGRAMMER ANALYST Screening for V76.51 Active Ismael Coyne Screening for malignant 12/26 12/26 Amandeep malignant neoplasms of MD neoplasms of colon colon Insomnia, 307.42 Active Indigo 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 ASSOCIATE PROGRAMMER ANALYST disorder of initiating or maintaining sleep Establish care V68.89 Active Indigo Encounters for or get 01/16 01/18 [place] ASSOCIATE PROGRAMMER ANALYST other specified acquainted administrative visit purpose ABNORMAL VAGINAL ICD-626.9 Inactive Maite Sanchez BLEEDING PhD SCABIES ICD-133.0 Inactive Maite Sanchez PhD OTH GENERAL ICD-V70.3 Inactive Maite Sanchez MEDICAL MD PhD EXAMINATION ADMIN PURPOSES OTHER ABNORMAL ICD-790.29 Inactive Maite Sanchez GLUCOSE PhD ACUTE BRONCHITIS ICD-466.0 Inactive Maite Sanchez PhD Sinusitis, ICD-461.1 Inactive Ismael Conye frontal, acute Amandeep ONEAL Laryngitis, ICD-464.00 Inactive Ismael Coyne acute Amandeep ONEAL Medication List Medication Instructions Start Stop Generic NDC Status Provider Patient Date Date Name Instruction JANUVIA 100 1 tablet by SITAGLIPTIN 65151399195 Active Indigo Active MG TABS mouth daily PHOSPHATE [place] ASSOCIATE PROGRAMMER ANALYST METFORMIN 2 tablets METFORMIN HCL 90098302089 Active Indigo Active HCL 500 MG by mouth [place] TB24 twice daily ASSOCIATE PROGRAMMER ANALYST TRAMADOL HCL 1/2 po tid 2 TRAMADOL HCL 07127512552 No Jillina Active 50 MG TABS with ES 0 Longer [place] Tylenol prn 1 Active ASSOCIATE PROGRAMMER ANALYST pain 5 / 0 2 VYVANSE 20 1 tablet 2 LISDEXAMFETAMIN 24042348246 No Jillina Active MG ORAL CAPS daily for 0 E DIMESYLATE Longer [place] binge 1 Active ASSOCIATE PROGRAMMER ANALYST eating 5 disorder / 0 2 LASIX 20 MG 2 tablet by FUROSEMIDE 81377974018 Active Joseph W Active TAB mouth daily Farooq DO CELEBREX 200 1 tablet by CELECOXIB 09092867128 Active Joseph W Active MG CAPS mouth daily Farooq DO with meals PREDNISONE 2 tablets 2 PREDNISONE 83651391832 No Joseph W Active 20 MG TAB today, then 0 Longer Farooq DO 1 tablet 1 Active days 2-4 5 / 0 4 / 3 DIFLUCAN 100 1 tablet by 2 FLUCONAZOLE 14301135307 No Joseph W Active MG TAB mouth daily 0 Longer Farooq DO x 3 days 1 Active 5 / 0 4 / 3 AMARYL 1 MG 1 tablet GLIMEPIRIDE 33692189277 Active Joseph W Active ORAL TABS orally Farooq DO twice daily DIFLUCAN 100 1 tablet by 2 FLUCONAZOLE 63061434838 No Joseph W Active MG TABS mouth every 0 Longer Farooq DO other day 1 Active for 2 doses 5 / 0 1 / 2 3 ZOFRAN 4 MG 1 po q6hr ONDANSETRON HCL 80762696588 Active Joseph Pineda Active TABS PRN Nausea Farooq DO PREDNISONE 2 tabs 2 PREDNISONE 58350938171 No Joseph W Active 20 MG TAB daily for 3 0 Longer Farooq DO days, 1 tab 1 Active daily for 3 4 days, 1/2 / tab daily 1 for 2 days 0 / 2 5 AMOXICILLIN 2 po BID x 2 AMOXICILLIN 56808720303 No Maite C Active 500 MG CAPS 10 days 0 Longer Madril 1 Active PhD 0 / 2 0 LISINOPRIL 1 tablet by 2 LISINOPRIL 06222974931 No Maite C Active 20 MG TABS mouth 0 Longer Madril daily 1 Active PhD 0 0 POTASSIUM 2 capsule 2 POTASSIUM 96449376447 No Joseph Pineda Active CHLORIDE CR by mouth 0 CHLORIDE Longer 10 MEQ CPCR daily 1 Active 4 / 0 8 / 2 9 SPIRONOLACTO 1 tablet by 2 SPIRONOLACTONE 47479489228 No Joseph Pineda Active NE 25 MG TAB mouth daily 0 Longer Farooq 1 Active 4 / 0 8 / 2 9 METFORMIN 1 tablet 2 METFORMIN HCL 72110733476 No Joseph Pineda Active HCL 500 MG by mouth 0 Longer [facility] TABS twice daily 1 Active 4 / 0 8 / 2 9 AMARYL 1 MG 1 tab twice 2 GLIMEPIRIDE 05532609616 No Joseph Pineda Active TABS daily 0 Longer Farooq 1 Active 4 / 0 8 / 2 9 PHENTERMINE 1 po q am 2 PHENTERMINE HCL 02635595444 No Joseph Pineda Active HCL 37.5 MG for wt. 0 Longer Farooq DO TABS loss 1 Active 3 / 1 2 / 2 3 PROMETHAZINE 1 tab by 2 PROMETHAZINE 10227708113 No Joseph W Active HCL 25 MG mouth every 0 HCL Longer [facility] TABS 6 hours as 1 Active needed 3 / 0 9 / 0 9 CIPROFLOXACI Take one 2 CIPROFLOXACIN 61633689042 No Joseph W Active N HCL 500 MG (1) tablet 0 HCL Longer Farooq DO TABS by mouth 1 Active twice a day 3 / 0 9 / 0 9 ABILIFY 5 MG one p.o. q. 2 ARIPIPRAZOLE 41942214386 No Joseph W Active TABS day 0 Longer Farooq DO 1 Active 3 / 0 9 / 0 9 HYDROCHLOROT 2 tabs 2 HYDROCHLOROTHIA 86150782553 No Joseph W Active HIAZIDE 25 every 0 ZIDE Longer Farooq DO MG TABS morning 1 Active 3 / 0 6 / 2 7 ABILIFY 2 MG 1 po q hs 2 ARIPIPRAZOLE 10383983065 No Joseph W Active TABS for major 0 Longer Farooq depression 1 Active 3 / 0 5 / 0 7 ADIPEX-P 1/2 tab po 2 PHENTERMINE HCL 51623293155 No Casey Active 37.5 MG CAPS q am for 0 Longer [place] weight loss 1 Active PA 3 / 0 5 / 0 1 CIPRO 500 MG 1 tablet by 2 CIPROFLOXACIN 36055854642 No Casey Active TAB mouth twice 0 HCL Longer [place] daily 1 Active PA 3 / 0 5 / 0 1 NECON 35 1 po daily 2 NORETHINDRONE-E 91754250880 No Casey Active () -35 0 ESTRADIOL Longer [place] MG-MCG TABS 1 Active PA 3 / 0 5 / 0 1 TRAMADOL HCL 1 po tid 2 TRAMADOL HCL 79669833987 No Casey Active 50 MG TABS with ES 0 Longer [place] Tylenol 1 Active PA 3 / 0 5 / 0 1 FLUCONAZOLE one p.o. q. 2 FLUCONAZOLE 01693278050 No Casey Active 100 MG TABS day 2 days 0 Longer [place] 1 Active PA 3 / 0 5 / 0 1 POTASSIUM 1 capsule 2 POTASSIUM 83393820063 No Casey Active CHLORIDE CR by mouth 0 CHLORIDE Longer 10 MEQ CPCR daily 1 Active PA 3 / 0 5 / 0 1 IMIPRAMINE Take 6 IMIPRAMINE HCL 61215390537 Active Joseph W Active HCL 50 MG tablets by [facility] TABS mouth at bedtime DIFLUCAN 100 1 tablet by 2 FLUCONAZOLE 96827525811 No Joseph W Active MG TAB mouth daily 0 Longer Farooq DO 1 Active 2 / 0 2 / 2 4 METOPROLOL 1/2 tab po METOPROLOL 04301102988 Active Joseph W Active TARTRATE 25 bid TARTRATE Farooq DO MG TABS VERAPAMIL 2 po bid VERAPAMIL HCL 47618073798 Active Joseph W Active HCL CR 120 Farooq DO MG TAB CR PERMETHRIN 5 apply neck 2 PERMETHRIN 31534192774 No Joseph W Active % CREA to toes 0 Longer Farooq DO tonight and 1 Active then rinse 2 off in / morning. 0 repeat at 7 1 days / 2 0 SEROQUEL XR one p.o. q. 2 QUETIAPINE 36350723127 No Joseph W Active 50 MG evening 0 FUMARATE Longer Farooq DO [id number] 1 Active 2 / 0 1 / 2 0 TRAMADOL HCL 1-2 tablets 2 TRAMADOL HCL 25883228303 No Joseph W Active 50 MG TABS every 6-8 0 Longer Farooq DO hours as 1 Active needed for 2 pain / 0 1 / 2 0 ALPRAZOLAM 3 one p.o. ALPRAZOLAM 93786975315 Active Indigo Active MG [id number] q.h.s. [employer] ASSOCIATE PROGRAMMER ANALYST ALPRAZOLAM Take 1 2 ALPRAZOLAM 12258307659 No Joseph W Active XR [id number] tablet by 0 [id number] Longer Farooq DO mouth at 1 Active bedtime 1 / 2 9 DIFLUCAN 100 1 tablet by 2 FLUCONAZOLE 19455427123 No Joseph W Active MG TAB mouth daily 0 Longer Farooq DO 1 Active 0 / 0 6 AMBIEN 10 MG 1 tab by ZOLPIDEM 78398565928 Active Joseph W Active TAB mouth at TARTRATE Farooq DO bedtime as needed for sleep DIFLUCAN 100 1 tablet DIFLUCAN 554653 FLUCONAZOLE Inactive MG TAB by mouth 100 MG TAB daily ALPRAZOLAM Take 1 ALPRAZOLAM ALPRAZOLAM Inactive XR [id number] tablet by XR [id number] mouth at [id number] bedtime TRAMADOL HCL 1-2 TRAMADOL 364960 TRAMADOL HCL Inactive 50 MG TABS tablets HCL 50 MG every 6-8 TABS hours as needed for pain SEROQUEL XR one p.o. SEROQUEL XR QUETIAPINE Inactive 50 MG q. evening 50 MG FUMARATE [id number] PERMETHRIN 5 apply neck PERMETHRIN 330753 PERMETHRIN Inactive % CREA to toes 5 % CREA tonight and then rinse off in morning. repeat at 7 days DIFLUCAN 100 1 tablet DIFLUCAN 704918 FLUCONAZOLE Inactive MG TAB by mouth 100 MG TAB daily POTASSIUM 1 capsule POTASSIUM POTASSIUM Inactive CHLORIDE CR by mouth CHLORIDE CR CHLORIDE 10 MEQ CPCR daily 10 MEQ CPCR FLUCONAZOLE one p.o. FLUCONAZOLE 19760111 FLUCONAZOLE Inactive 100 MG TABS q. day 2 100 MG TABS days TRAMADOL HCL 1 po tid TRAMADOL 344187 TRAMADOL HCL Inactive 50 MG TABS with ES HCL 50 MG Tylenol TABS NECON 1/35 1 po daily NECON 1/35 NORETHINDRONE- Inactive (28) 1-35 (28) 1-35 ETH ESTRADIOL MG-MCG TABS MG-MCG TABS CIPRO 500 MG 1 tablet CIPRO 500 924832 CIPROFLOXACIN Inactive TAB by mouth MG TAB HCL twice daily ADIPEX-P 1/2 tab po ADIPEX-P 756915 PHENTERMINE Inactive 37.5 MG CAPS q am for 37.5 MG HCL weight CAPS loss ABILIFY 2 MG 1 po q hs ABILIFY 2 244164 ARIPIPRAZOLE Inactive TABS for major MG TABS depression HYDROCHLOROT 2 tabs HYDROCHLORO 387658 HYDROCHLOROTHI Inactive HIAZIDE 25 every THIAZIDE 25 AZIDE MG TABS morning MG TABS ABILIFY 5 MG one p.o. ABILIFY 5 433916 ARIPIPRAZOLE Inactive TABS q. day MG TABS CIPROFLOXACI Take one CIPROFLOXAC 902329 CIPROFLOXACIN Inactive N HCL 500 MG (1) tablet IN HCL 500 HCL TABS by mouth MG TABS twice a day PROMETHAZINE 1 tab by PROMETHAZIN 602833 PROMETHAZINE Inactive HCL 25 MG mouth E HCL 25 MG HCL TABS every 6 TABS hours as needed PHENTERMINE 1 po q am PHENTERMINE 516955 PHENTERMINE Inactive HCL 37.5 MG for wt. HCL 37.5 MG HCL TABS loss TABS AMARYL 1 MG 1 tab AMARYL 1 MG 686448 GLIMEPIRIDE Inactive TABS twice TABS daily METFORMIN 1 tablet METFORMIN 113409 METFORMIN HCL Inactive HCL 500 MG by mouth HCL 500 MG TABS twice TABS daily SPIRONOLACTO 1 tablet SPIRONOLACT 980868 SPIRONOLACTONE Inactive NE 25 MG TAB by mouth ONE 25 MG daily TAB POTASSIUM 2 capsule POTASSIUM POTASSIUM Inactive CHLORIDE CR by mouth CHLORIDE CR CHLORIDE 10 MEQ CPCR daily 10 MEQ CPCR LISINOPRIL 1 tablet LISINOPRIL 885891 LISINOPRIL Inactive 20 MG TABS by mouth 20 MG TABS daily DIFLUCAN 100 1 tablet DIFLUCAN 614214 FLUCONAZOLE Inactive MG TABS by mouth 100 MG TABS every other day for 2 doses DIFLUCAN 100 1 tablet DIFLUCAN 384871 FLUCONAZOLE Inactive MG TAB by mouth 100 MG TAB daily x 3 days PREDNISONE 2 tablets PREDNISONE 477171 PREDNISONE Inactive 20 MG TAB today, 20 MG TAB then 1 tablet days 2-4 VYVANSE 20 1 tablet VYVANSE 20 LISDEXAMFETAMI Inactive MG ORAL CAPS daily for MG ORAL NE DIMESYLATE binge CAPS eating disorder TRAMADOL HCL 1/2 po tid TRAMADOL 613861 TRAMADOL HCL Inactive 50 MG TABS with ES HCL 50 MG Tylenol TABS prn pain AMOXICILLIN 2 po BID x AMOXICILLIN 870806 AMOXICILLIN Inactive 500 MG CAPS 10 days 500 MG CAPS PREDNISONE 2 tabs PREDNISONE 947714 PREDNISONE Inactive 20 MG TAB daily for [...] pressure, diastolic - 8462-4 82 mm[Hg] BP nnuez blood pressure, systolic - 8480-6 125 mm[Hg] [...] HGBA1C - Chemistry sodium, serum 140 mmol/L 788-998 8368/04/13 potassium, serum 3.9 mmol/L 3.5-5.2 chloride, serum [...] 219 10^3/MM^3 10*3/mm3 142-424 Lab Report: CBC, BA1C - Chemistry hemoglobin A1C, blood, as % of total hemoglobin 6.8 % 4.3-6.0 Lab Report: CBC, BA1C - Hematology leukocyte count, blood 6.0 10^3/MM^3 [...] 198 10^3/MM^3 10*3/mm3 142-424 Lab Report: Chlamydia/GC APTIMA/[id number] - Lab chlamydia DNA probe NOT DETECTED NOT DETECTED Lab Report: Chlamydia/GC APTIMA/[id number] - Microbiology Neisseria gonorrhoeae DNA probe NOT DETECTED NOT DETECTED Lab Report: Comp. Metabolic Panel, Lipid Panel - Chemistry sodium, serum 136 mmol/L 791-094 2247/01/04 carbon dioxide, venous blood 27.0 mmol/L 21.0-32.0 potassium, serum 4.6 mmol/L 3.5-5.2 chloride, serum 98 mmol/L 98-107 blood glucose 174 mg/dL 65-110 urea nitrogen, blood 12 mg/dL 7-18 creatinine, serum 0.78 mg/dL 0.55-1.30 alanine aminotransferase (SGPT), serum 65 U/L 12-78 aspartate aminotransferase (SGOT), serum 34 U/L 15-37 calcium, serum 8.9 mg/dL 8.5-10.1 bilirubin, serum, total 0.40 mg/dL 0.00-1.00 cholesterol, serum 219 mg/dL 157-959 0529/01/04 triglyceride, serum, fasting 214 mg/dL 30-200 HDL [...] mg/g mg/g{creat} 0-29 sodium, serum 140 mmol/L 913-772 2657/07/21 potassium, serum 3.9 mmol/L 3.5-5.2 chloride, serum [...] 142-424 Encounters Code Encounter Date Provider Facility CPT-55766 Level 3 Est. Patient Indigo Sexton [facility] 18:59:38 CDT CPT-62778 Level 3 Est. Patient Joseph Pineda [facility] 14:42:12 CDT -[facility] CPT-71781 Level 3 Est. Patient Joseph Pineda [facility] 22:18:20 CDT -[facility] CPT-59557 Level 3 Est. Patient Joseph Pineda [facility] 16:46:04 CDT -[facility] CPT-83105 Level 3 Est. Patient Joseph Pineda [facility] 15:39:53 CDT -[facility] CPT-08832 Level 3 Est. Patient Maite Sanchez MD [facility] 13:33:34 CDT -[facility]HC CPT-72887 Level 3 Est. Patient Joseph Pineda [facility] 11:37:08 CDT -[facility] CPT-64849 Level 3 Est. Patient Joseph Pineda [facility] 17:13:29 MANAGER SUPPORT SERVICES -RHC CPT-18006 Level 3 Est. Patient Joseph Pineda [facility] 18:42:44 CDT CPT-01879 Level 3 Est. Patient Joseph Pineda [facility] 16:25:39 CDT CPT-26405 Level 3 Est. Patient Casey Brower [facility] 09:52:45 CDT -[facility] CPT-68746 Level 3 Est. Patient Joseph Pineda [facility] 11:03:29 MANAGER SUPPORT SERVICES -[facility]HC CPT-56227 Level 3 Est. Patient Joseph Edwin [facility] 11:03:08 MANAGER SUPPORT SERVICES -[facility]HC CPT-82410 Level 3 Est. Patient Joseph Edwin [facility] 14:33:31 CDT -[facility]HC CPT-64422 Level 3 Est. Patient Joseph Edwin [facility] 17:05:02 MANAGER SUPPORT SERVICES -RHC CPT-77265 Level 3 Est. Patient Joseph Pineda [facility] 17:48:06 MANAGER SUPPORT SERVICES -RHC CPT-93067 Level 3 Est. Patient Joseph Edwin [facility] 14:59:22 MANAGER SUPPORT SERVICES -RHC CPT-04184 Level 3 Est. Patient Joseph Pineda [facility] - 21:45:56 MANAGER SUPPORT SERVICES [place] [facility] CPT-11372 Level 3 Est. Patient [facility] 21:29:50 CDT -RHC CPT-10635 Level 3 Est. Patient Joseph Edwin [facility] 12:41:09 CDT -RHC Procedures Code Procedure Name Date Entry Date Standard Description CPT-OV Office Visit 17:39:05 CDT CPT-OV Office Visit 15:19:50 CDT CPT-40160 Sono transvag pelvis non OB uterus ovaries cervix 18:04:34 CDT CPT-25188 Venipuncture Draw Fee 08:55:49 MANAGER SUPPORT SERVICES
--- OUTSIDE RECORDS SUMMARY | 2016-11-20 13:34 | External Medical Summary | Clinical Summary ---
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 NKDA Critical Active Indigo Yokum ELECTRONIC INSTALLER NKDA Critical No Longer Indigo Yokum ELECTRONIC INSTALLER Active NKDA Critical Inactive Adrianna Elder Conditions or Problems Problem Name Problem Onset Status Entry Provider Comment Standard Annotate Code Date Date Description ABNORMAL 626.9 Resolved Maite Gutierrez Unspecified VAGINAL Laura NOEAL disorders of BLEEDING PhD menstruation and other abnormal bleeding from female genital tract DEPRESSION, 296.33 Inactive Joseph Pineda Major depressive ACUTE, Farooq DO disorder, RECURRENT recurrent episode, severe degree, without mention of psychotic behavior Depression, 311 Active Indigo Depressive chronic 09/20 Yokum ELECTRONIC INSTALLER disorder, not elsewhere classified SCABIES 133.0 Resolved Maite Gutierrez Scabies 06/23 Laura ONEAL PhD HYPERTENSION 401.9 Active Joseph Pineda Unspecified 05/24 Farooq DO essential hypertension FATIGUE 780.79 Resolved Indigo Other malaise 05/24 07/02 Yokum ELECTRONIC INSTALLER and fatigue SLEEP APNEA, 327.23 Active Joseph Pineda Obstructive OBSTRUCTIVE, 06/27 06/27 Farooq DO sleep apnea MILD (adult) (pediatric) OVERWEIGHT 278.02 Inactive Joseph Pineda Overweight 06/28 06/28 Farooq DO Obesity 278.00 Active Indigo Obesity, 06/28 10/18 Yokum ELECTRONIC INSTALLER unspecified OT GENERAL V70.3 Resolved Maite C Other general MEDICAL Laura ONEAL medical EXAMINATION PhD examination for ADMIN administrative PURPOSES purposes OTHER 790.29 Resolved Maite C Other abnormal ABNORMAL 05/20 Laura ONEAL glucose GLUCOSE PhD ACUTE 466.0 Resolved Maite Gutierrez Acute bronchitis BRONCHITIS 09/02 Laura ONEAL PhD DEPENDENT 782.3 Resolved Indigo Edema EDEMA, LEGS, 10/29 10/18 Yokum ELECTRONIC INSTALLER BILATERAL HYPOKALEMIA, 276.8 Resolved Indigo Hypopotassemia MILD 10/29 07/02 Yo ELECTRONIC INSTALLER Diabetes, 250.00 Inactive Joseph Pineda Diabetes Type 2 06/27 06/27 Farooq DO mellitus without mention of complication, type II or unspecified type, not stated as uncontrolled Diabetes 250.02 Resolved Indigo Diabetes mellitus, 06/27 10/18 Yokum ELECTRONIC INSTALLER mellitus without type II, mention of uncontrolled [...] Indigo Routine gynecological 12/14 07/02 Yo ELECTRONIC INSTALLER gynecological examination examination Postmenopausa 627.1 Resolved Indigo Postmenopausal l bleeding 12/14 07/02 Yokum ELECTRONIC INSTALLER bleeding Screening for V76.51 Resolved Indigo Screening for malignant 12/26 07/02 Yokum ELECTRONIC INSTALLER malignant neoplasms of neoplasms of colon colon Insomnia, 307.42 Active 2015/0 Indigo 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 ELECTRONIC INSTALLER disorder of initiating or maintaining sleep Establish V68.89 Resolved Indigo Encounters for care or get 01/16 07/02 Yokum ELECTRONIC INSTALLER other specified acquainted administrative visit purpose Weakness, 342.90 Resolved Indigo Hemiplegia, left side of 06/20 10/18 Yokum ELECTRONIC INSTALLER unspecified, body affecting unspecified side TIA 435.9 Active Indigo Unspecified 06/20 07/02 Yokum ELECTRONIC INSTALLER transient cerebral ischemia Knee pain, 719.46 Active Indigo Pain in joint bilateral 06/20 10/18 Yokum ELECTRONIC INSTALLER involving lower leg Bronchitis 490 Resolved Indigo Bronchitis, not 07/23 10/18 Yokum ELECTRONIC INSTALLER specified as acute or chronic Diabetes 357.2 Active Maliheh Polyneuropathy mellitus, 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 911 EMERGENCY DISPATCHER 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 y Knee pain, 719.46 Resolved Indigo Pain in joint right 06/20 09/20 Yokum ELECTRONIC INSTALLER involving lower leg Jesi 112.3 Resolved Indigo Candidiasis of intertrigo 10/09 09/20 Yokum ELECTRONIC INSTALLER skin and nails Hyperlipidemi 272.4 Active Anne Other and a 12/24 12/24 Neil unspecified RMA hyperlipidemia Incontinence, 788.33 Resolved Indigo Mixed mixed, 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 ELECTRONIC INSTALLER incontinence urge/stress (female) (male) Female stress 625.6 Active Yury Monaco Stress incontinence 01/03 01/03 Cy patel MD female Vaginal odor 623.8 Resolved Indigo Other specified 05/28 09/20 Yokum ELECTRONIC INSTALLER noninflammatory disorders of vagina Urinary tract 599.0 Resolved Indigo Urinary tract infection 05/28 09/20 Yokum ELECTRONIC INSTALLER infection, site not specified Urine odor 791.9 Resolved Indigo Other 05/28 09/20 Yokum ELECTRONIC INSTALLER nonspecific findings on examination of urine Unspecified Resolved Indigo dyspareunia 08/19 09/20 Yokum ELECTRONIC INSTALLER Depression Resolved Indigo 09/20 Yokum ELECTRONIC INSTALLER Anxiety Active Indigo Anxiety state, Disorder 08/26 ELECTRONIC INSTALLER unspecified ABNORMAL VAGINAL ICD-626.9 Inactive Maite C Laura BLEEDING PhD SCABIES ICD-133.0 Inactive Maite C Laura PhD FATIGUE ICD-780.79 Inactive Indigo Yokum ELECTRONIC INSTALLER OTH GENERAL ICD-V70.3 Inactive Maite C Laura MEDICAL MD PhD EXAMINATION ADMIN PURPOSES OTHER ABNORMAL ICD-790.29 Inactive Maite C Ronyril GLUCOSE PhD ACUTE BRONCHITIS ICD-466.0 Inactive Maite C Laura PhD DEPENDENT EDEMA, ICD-782.3 Inactive Indigo Yokum LEGS, BILATERAL ELECTRONIC INSTALLER HYPOKALEMIA, MILD ICD-276.8 Inactive Indigo Yokum ELECTRONIC INSTALLER Diabetes mellitus, ICD-250.02 Inactive Indigo Yokum type II, ELECTRONIC INSTALLER uncontrolled Sinusitis, ICD-461.1 Inactive Ismael Coyne frontal, acute Amandeep ONEAL Laryngitis, acute ICD-464.00 Inactive Ismael Coyne Amandeep ONEAL Routine ICD-V72.31 Inactive Indigo Yokum gynecological ELECTRONIC INSTALLER examination Postmenopausal ICD-627.1 Inactive Indigo Yokum 2015 bleeding ELECTRONIC INSTALLER Screening for ICD-V76.51 Inactive Indigo Yokum 2015 malignant ELECTRONIC INSTALLER neoplasms of colon Establish care or ICD-V68.89 Inactive Indigo Yokum get acquainted ELECTRONIC INSTALLER visit Weakness, left ICD-342.90 Inactive Indigo Yokum side of body ELECTRONIC INSTALLER Bronchitis ICD-490 Inactive Indigo Yokum ELECTRONIC INSTALLER Knee pain, right ICD-719.46 Inactive Indigo Yokum ELECTRONIC INSTALLER Jesi intertrigo ICD-112.3 Inactive Indigo Yokum ELECTRONIC INSTALLER Incontinence, ICD-788.33 Inactive Indigo Yokum 2016 mixed, urge/stress ELECTRONIC INSTALLER Vaginal odor ICD-623.8 Inactive Indigo Yokum 09/20 ELECTRONIC INSTALLER Urinary tract ICD-599.0 Inactive Indigo Yokum 09/20 infection ELECTRONIC INSTALLER Urine odor ICD-791.9 Inactive Indigo Yokum ELECTRONIC INSTALLER Unspecified Inactive Indigo Yokum dyspareunia ELECTRONIC INSTALLER Depression Inactive Indigo Yokum ELECTRONIC INSTALLER Medication List Medication Instructions Start Stop Generic NDC Status Provider Patient Date Date Name Instruction ALPRAZOLAM 3 one p.o. ALPRAZOLAM 32075050421 Active Indigo Active MG [id number] q.h.s. Yokum ELECTRONIC INSTALLER ABILIFY 10 MG Take one ARIPIPRAZOLE 84214721883 Active Indigo Active ORAL TABS tablet Yokum daily for ELECTRONIC INSTALLER depression CELEBREX 200 1 tablet 2 CELECOXIB 36670474035 No Indigo Active MG CAPS by mouth 0 Longer Yokum daily with 1 Active ELECTRONIC INSTALLER meals 7 / 0 4 / 2 4 TROKENDI XR 1 tab by 2 TOPIRAMATE 70791538301 No Indigo Active 100 MG ORAL mouth 0 Longer Yokum [id number] daily 1 Active ELECTRONIC INSTALLER 7 0 4 VESICARE 10 MG 1 pill by SOLIFENACIN 74063332236 Active J Carlos Enrique Active TABS mouth SUCCINATE [place] daily for MD overactive bladder CIPRO 250 MG 1 tablet 2 CIPROFLOXACIN 26263393454 No Indigo Active TAB by mouth 0 HCL Longer Yokum twice 1 Active ELECTRONIC INSTALLER daily 7 METFORMIN HCL 2 tablets 2 METFORMIN HCL 80068638049 No Indigo Active 500 MG TB24 by mouth 0 Longer Yokum twice 1 Active ELECTRONIC INSTALLER daily 2 AMARYL 1 MG 1 tablet 2 GLIMEPIRIDE 11090953916 No Indigo Active ORAL TABS orally 0 Longer Yokum twice 1 Active ELECTRONIC INSTALLER daily 2 NYSTATIN apply to NYSTATIN 79845369960 Active Indigo Active 602315 UNIT/GM rash TID Yokum CREA PRN ELECTRONIC INSTALLER METOPROLOL 1 tab po METOPROLOL 35611221799 Active Indigo Active TARTRATE 25 MG bid TARTRATE Yokum TABS ELECTRONIC INSTALLER AZITHROMYCIN 2 po qd x 2 AZITHROMYCIN 25979889574 No Jillina Active 250 MG TABS 1 day, 0 Longer Frazell then 1 po 1 Active ELECTRONIC INSTALLER qd x 4 6 days / 0 3 / 2 6 PREDNISONE 20 2 pills 2 PREDNISONE 49571194415 No Jillina Active MG TAB daily x 4 0 Longer [place]ell days 1 Active ELECTRONIC INSTALLER 6 / 0 3 / 2 5 PIOGLITAZONE take one a PIOGLITAZONE 85743424384 Active Maliheh Active HCL 30 MG ORAL day HCL Ziglari TABS 911 EMERGENCY DISPATCHER JANUVIA 100 MG 1 tablet 2 SITAGLIPTIN 88217802688 No Indigo Active TABS by mouth 0 PHOSPHATE Longer Yokum daily 1 Active ELECTRONIC INSTALLER 6 / 0 2 / 1 6 ATORVASTATIN 1 pill by ATORVASTATIN 91598258320 Active Indigo Active CALCIUM 10 MG mouth CALCIUM Yokum TABS nightly, ELECTRONIC INSTALLER for cholestero l ASPIRIN 81 MG 1 po qd ASPIRIN 84163296005 Active Indigo Active ORAL TABS Yokum ELECTRONIC INSTALLER NITROFURANTOIN One 2 NITROFURANTOIN 17228244674 No Indigo Active MONOHYD MACRO capsule 0 MONOHYD MACRO Longer Yokum 100 MG CAPS BID for 1 Active ELECTRONIC INSTALLER UTI 6 / 0 2 / 1 3 TRAMADOL HCL 1/2 po tid 2 TRAMADOL HCL 55326582151 No Jillina Active 50 MG TABS with ES 0 Longer [place] Tylenol 1 Active ELECTRONIC INSTALLER prn pain 5 / 0 8 2 VYVANSE 20 MG 1 tablet 2 LISDEXAMFETAMI 77281953078 No Jillina Active ORAL CAPS daily for 0 NE DIMESYLATE Longer Frazell binge 1 Active ELECTRONIC INSTALLER eating 5 disorder / 0 2 LASIX 20 MG 2 tablet FUROSEMIDE 48780618293 Active Indigo Active TAB by mouth Yokum daily ELECTRONIC INSTALLER PREDNISONE 20 2 tablets 2 PREDNISONE 27000784499 No Joseph W Active MG TAB today, 0 Longer Farooq DO then 1 1 Active tablet 5 days 2-4 / 0 4 3 DIFLUCAN 100 1 tablet 2 FLUCONAZOLE 79450745129 No Joseph W Active MG TAB by mouth 0 Longer Farooq DO daily x 3 1 Active days 5 / 0 4 / 3 DIFLUCAN 100 1 tablet 2 FLUCONAZOLE 67991181046 No Joseph W Active MG TABS by mouth 0 Longer Farooq DO every 1 Active other day 5 for 2 / doses 0 1 / 2 3 ZOFRAN 4 MG 1 po q6hr ONDANSETRON 61508931419 Active Joseph W Active TABS PRN Nausea HCL Farooq DO PREDNISONE 20 2 tabs 2 PREDNISONE 55631205607 No Joseph W Active MG TAB daily for 0 Longer Farooq DO 3 days, 1 1 Active tab daily 4 for 3 / days, 1/2 1 tab daily 0 for 2 days / 2 5 AMOXICILLIN 2 po BID x 2 AMOXICILLIN 44400254101 No Maite C Active 500 MG CAPS 10 days 0 Longer Madril 1 Active MD PhD 4 / 1 0 / 2 0 LISINOPRIL 20 1 tablet 2 LISINOPRIL 70036620234 No Maite C Active MG TABS by mouth 0 Longer Madril daily 1 Active MD PhD 4 0 / 1 0 POTASSIUM 2 capsule 2 POTASSIUM 41565719030 No Joseph W Active CHLORIDE CR 10 by mouth 0 CHLORIDE Longer Farooq DO MEQ CPCR daily 1 Active 4 / 0 8 / 2 9 SPIRONOLACTONE 1 tablet 2 SPIRONOLACTONE 92209517578 No Joseph W Active 25 MG TAB by mouth 0 Longer Farooq DO daily 1 Active 4 / 0 8 / 2 9 METFORMIN HCL 1 tablet 2 METFORMIN HCL 71115330994 No Joseph W Active 500 MG TABS by mouth 0 Longer Farooq DO twice 1 Active daily 4 / 0 8 / 2 9 AMARYL 1 MG 1 tab 2 GLIMEPIRIDE 98816897929 No Joseph W Active TABS twice 0 Longer Farooq DO daily 1 Active 4 / 0 8 / 2 9 PHENTERMINE 1 po q am 2 PHENTERMINE 76877591076 No Joseph W Active HCL 37.5 MG for wt. 0 HCL Longer Farooq DO TABS loss 1 Active 3 / 1 2 / 2 3 PROMETHAZINE 1 tab by 2 PROMETHAZINE 46173861995 No Joseph W Active HCL 25 MG TABS mouth 0 HCL Longer Farooq DO every 6 1 Active hours as 3 needed / 0 9 / 0 9 CIPROFLOXACIN Take one 2 CIPROFLOXACIN 93838087461 No Joseph W Active HCL 500 MG (1) tablet 0 HCL Longer Farooq DO TABS by mouth 1 Active twice a 3 day / 0 9 / 0 9 ABILIFY 5 MG one p.o. 2 ARIPIPRAZOLE 70538270172 No Joseph W Active TABS q. day 0 Longer Farooq DO 1 Active 3 / 0 9 / 0 9 HYDROCHLOROTHI 2 tabs 2 HYDROCHLOROTHI 63695421486 No Joseph W Active AZIDE 25 MG every 0 AZIDE Longer Farooq DO TABS morning 1 Active 3 / 0 6 / 2 7 ABILIFY 2 MG 1 po q hs 2 ARIPIPRAZOLE 23964079475 No Joseph W Active TABS for major 0 Longer Farooq DO depression 1 Active 3 / 0 5 / 0 7 ADIPEX-P 37.5 1/2 tab po 2 PHENTERMINE 49877381093 No Casey Active MG CAPS q am for 0 HCL Longer weight 1 Active PA loss 3 / 0 5 / 0 1 CIPRO 500 MG 1 tablet 2 CIPROFLOXACIN 50181837459 No Casey Active TAB by mouth 0 HCL Longer [place] twice 1 Active PA daily 3 / 0 5 / 0 1 NECON 1 po daily 2 NORETHINDRONE- 23558762697 No Casey Active () 1-35 0 ETH ESTRADIOL Longer MG-MCG TABS 1 Active PA 3 / 0 5 / 0 1 TRAMADOL HCL 1 po tid 2 TRAMADOL HCL 55806245946 No Casey Active 50 MG TABS with ES 0 Longer Tylenol 1 Active PA 3 / 0 5 / 0 1 FLUCONAZOLE one p.o. 2 FLUCONAZOLE 01836956282 No Casey Active 100 MG TABS q. day 2 0 Longer days 1 Active PA 3 / 0 5 / 0 1 POTASSIUM 1 capsule 2 POTASSIUM 03973038693 No Casey Active CHLORIDE CR 10 by mouth 0 CHLORIDE Longer MEQ CPCR daily 1 Active PA 3 / 0 5 / 0 1 IMIPRAMINE HCL Take 6 IMIPRAMINE HCL 91474829642 Active Indigo Active 50 MG TABS tablets by Yokum mouth at ELECTRONIC INSTALLER bedtime DIFLUCAN 100 1 tablet 2 FLUCONAZOLE 75315582610 No Joseph W Active MG TAB by mouth 0 Longer Farooq DO daily 1 Active 2 / 0 2 / 2 4 VERAPAMIL HCL 2 po bid VERAPAMIL HCL 06948228528 Active Indigo Active CR 120 MG TAB Yokum CR ELECTRONIC INSTALLER PERMETHRIN 5 % apply neck 2 PERMETHRIN 46222433548 No Joseph W Active CREA to toes 0 Longer Farooq DO tonight 1 Active and then 2 rinse off / in 0 morning. 1 repeat at / 7 days 2 0 SEROQUEL XR 50 one p.o. 2 QUETIAPINE 00043348877 No Joseph W Active MG [id number] q. evening 0 FUMARATE Longer Farooq DO 1 Active 2 / 0 1 / 2 0 TRAMADOL HCL 1-2 2 TRAMADOL HCL 49224585365 No Joseph W Active 50 MG TABS tablets 0 Longer Farooq DO every 6-8 1 Active hours as 2 needed for / pain 0 1 / 2 0 ALPRAZOLAM XR Take 1 2 ALPRAZOLAM 64759910674 No Joseph W Active [id number] tablet by 0 [id number] Longer Farooq DO mouth at 1 Active bedtime 1 / 2 9 DIFLUCAN 100 1 tablet 2 FLUCONAZOLE 13434959396 No Joseph W Active MG TAB by mouth 0 Longer Farooq DO daily 1 Active 0 / 0 6 AMBIEN 10 MG 1 tab by ZOLPIDEM 15639524744 Active Indigo Active TAB mouth at TARTRATE Yokum bedtime as ELECTRONIC INSTALLER needed for sleep DIFLUCAN 100 1 tablet DIFLUCAN 001063 FLUCONAZOLE Inactive MG TAB by mouth 100 MG TAB daily ALPRAZOLAM Take 1 ALPRAZOLAM ALPRAZOLAM Inactive XR [id number] tablet by XR [id number] mouth at [id number] bedtime TRAMADOL HCL 1-2 TRAMADOL 608876 TRAMADOL HCL Inactive 50 MG TABS tablets HCL 50 MG every 6-8 TABS hours as needed for pain SEROQUEL XR one p.o. SEROQUEL XR QUETIAPINE Inactive 50 MG q. 50 MG FUMARATE [id number] evening [id number] PERMETHRIN 5 apply PERMETHRIN 955331 PERMETHRIN Inactive % CREA neck to 5 % CREA toes tonight and then rinse off in morning. repeat at 7 days DIFLUCAN 100 1 tablet DIFLUCAN 517614 FLUCONAZOLE Inactive MG TAB by mouth 100 MG TAB daily POTASSIUM 1 capsule POTASSIUM POTASSIUM Inactive CHLORIDE CR by mouth CHLORIDE CR CHLORIDE 10 MEQ CPCR daily 10 MEQ CPCR FLUCONAZOLE one p.o. FLUCONAZOLE 19760111 FLUCONAZOLE Inactive 100 MG TABS q. day 2 100 MG TABS days TRAMADOL HCL 1 po tid TRAMADOL 770967 TRAMADOL HCL Inactive 50 MG TABS with ES HCL 50 MG Tylenol TABS NECON 35 1 po NECON NORETHINDRONE- Inactive (28) 1-35 daily (28) 1-35 ETH ESTRADIOL MG-MCG TABS MG-MCG TABS CIPRO 500 MG 1 tablet CIPRO 500 824051 CIPROFLOXACIN Inactive TAB by mouth MG TAB HCL twice daily ADIPEX-P 1/2 tab ADIPEX-P 058307 PHENTERMINE Inactive 37.5 MG CAPS po q am 37.5 MG HCL for CAPS weight loss ABILIFY 2 MG 1 po q hs ABILIFY 2 027289 ARIPIPRAZOLE Inactive TABS for major MG TABS depressio n HYDROCHLOROT 2 tabs HYDROCHLORO 833002 HYDROCHLOROTHI Inactive HIAZIDE 25 every THIAZIDE 25 AZIDE MG TABS morning MG TABS ABILIFY 5 MG one p.o. ABILIFY 5 828785 ARIPIPRAZOLE Inactive TABS q. day MG TABS CIPROFLOXACI Take one CIPROFLOXAC 096284 CIPROFLOXACIN Inactive N HCL 500 MG (1) IN HCL 500 HCL TABS tablet by MG TABS mouth twice a day PROMETHAZINE 1 tab by PROMETHAZIN 104624 PROMETHAZINE Inactive HCL 25 MG mouth E HCL 25 MG HCL TABS every 6 TABS hours as needed PHENTERMINE 1 po q am PHENTERMINE 910720 PHENTERMINE Inactive HCL 37.5 MG for wt. HCL 37.5 MG HCL TABS loss TABS AMARYL 1 MG 1 tab AMARYL 1 MG 395261 GLIMEPIRIDE Inactive TABS twice TABS daily METFORMIN 1 tablet METFORMIN 567354 METFORMIN HCL Inactive HCL 500 MG by mouth HCL 500 MG TABS twice TABS daily SPIRONOLACTO 1 tablet SPIRONOLACT 899675 SPIRONOLACTONE Inactive NE 25 MG TAB by mouth ONE 25 MG daily TAB POTASSIUM 2 capsule POTASSIUM POTASSIUM Inactive CHLORIDE CR by mouth CHLORIDE CR CHLORIDE 10 MEQ CPCR daily 10 MEQ CPCR LISINOPRIL 1 tablet LISINOPRIL 534795 LISINOPRIL Inactive 20 MG TABS by mouth 20 MG TABS daily DIFLUCAN 100 1 tablet DIFLUCAN 013577 FLUCONAZOLE Inactive MG TABS by mouth 100 MG TABS every other day for 2 doses DIFLUCAN 100 1 tablet DIFLUCAN 645060 FLUCONAZOLE Inactive MG TAB by mouth 100 MG TAB daily x 3 days PREDNISONE 2 tablets PREDNISONE 363122 PREDNISONE Inactive 20 MG TAB today, 20 MG TAB then 1 tablet days 2-4 VYVANSE 20 1 tablet VYVANSE 20 LISDEXAMFETAMI Inactive MG ORAL CAPS daily for MG ORAL NE DIMESYLATE binge CAPS eating disorder TRAMADOL HCL 1/2 po TRAMADOL 766771 TRAMADOL HCL Inactive 50 MG TABS tid with HCL 50 MG ES TABS Tylenol prn pain JANUVIA 100 1 tablet JANUVIA 100 SITAGLIPTIN Inactive MG TABS by mouth MG TABS PHOSPHATE daily AMARYL 1 MG 1 tablet AMARYL 1 MG 592095 GLIMEPIRIDE Inactive ORAL TABS orally ORAL TABS twice daily METFORMIN 2 tablets METFORMIN METFORMIN HCL Inactive HCL 500 MG by mouth HCL 500 MG TB24 twice TB24 daily TROKENDI XR 1 tab by TROKENDI XR TOPIRAMATE Inactive 100 MG ORAL mouth 100 MG ORAL [id number] daily [id number] CELEBREX 200 1 tablet CELEBREX 711877 CELECOXIB Inactive MG CAPS by mouth 200 MG CAPS daily with meals AMOXICILLIN 2 po BID AMOXICILLIN 083579 AMOXICILLIN Inactive 500 MG CAPS x 10 days 500 MG CAPS PREDNISONE 2 tabs PREDNISONE 571534 PREDNISONE Inactive 20 MG TAB daily for 20 MG TAB 3 days, 1 tab daily for 3 days, 1/2 tab daily for 2 days NITROFURANTO One NITROFURANT 1930622 NITROFURANTOIN Inactive IN MONOHYD capsule OIN MONOHYD MONOHYD MACRO MACRO 100 MG BID for MACRO 100 CAPS UTI MG CAPS PREDNISONE 2 pills PREDNISONE 708317 PREDNISONE Inactive 20 MG TAB daily x 4 20 MG TAB days AZITHROMYCIN 2 po qd x AZITHROMYCI 1961116 AZITHROMYCIN Inactive 250 MG TABS 1 day, N 250 MG then 1 po TABS qd x 4 days CIPRO 250 MG 1 tablet CIPRO 250 120137 CIPROFLOXACIN Inactive TAB by mouth MG TAB [...] Panel - Chemistry sodium, serum 143 mmol/L 891-387 1448/06/05 carbon dioxide, venous blood 30.4 mmol/L 21.0-32.0 [...] 6.0 % 4.3-6.0 cholesterol, serum 176 mg/dL 659-161 9934/06/05 triglyceride, serum, fasting 41 mg/dL 30-200 HDL [...] 152 10^3/MM^3 10*3/mm3 142-424 Lab Report: Chlamydia/GC APTIMA/[id number] - Lab chlamydia DNA probe NOT DETECTED NOT DETECTED Lab Report: Chlamydia/GC APTIMA/[id number] - Microbiology Neisseria gonorrhoeae DNA probe NOT DETECTED NOT DETECTED Lab Report: Lipid Panel - Chemistry cholesterol, serum 157 mg/dL 238-935 2191/08/22 triglyceride, serum, fasting 215 mg/dL 30-200 HDL [...] negative Encounters Code Encounter Date Provider Facility CPT-13108 Level 4 Est. Patient [facility] - 16:58:20 CDT [place] CPT-69102 Level 3 Est. Patient Yury Benoit MD [facility] 17:20:07 CDT CPT-03140 Level 4 Est. Patient [facility] - 17:02:40 BLUE CRABBER [place] CPT-52540 Level 4 New Patient Yury Benoit MD [facility] 15:17:12 CDT CPT-28286 Level 3 Est. Patient [facility] - 13:37:46 CDT [place] CPT-50638 Level 4 Est. Patient [facility] - 10:01:06 CDT [place] CPT-07625 Level 3 Est. Patient [facility] 08:58:07 CDT 911 EMERGENCY DISPATCHER CPT-80894 Level 3 Est. Patient Faby Marino [facility] 14:40:56 CDT ELECTRONIC INSTALLER CPT-95014 Level 4 Est. Patient [facility] 17:29:53 BLUE CRABBER 911 EMERGENCY DISPATCHER CPT-42401 Level 4 Est. Patient [facility] 09:51:54 BLUE CRABBER CPT-62865 Level 3 Est. Patient [facility] 18:59:38 CDT CPT-38376 Level 3 Est. Patient Joseph Trivedi DO [facility] 14:42:12 CDT -[facility] CPT-08353 Level 3 Est. Patient [facility] 22:18:20 CDT -[facility] CPT-65005 Level 3 Est. Patient [facility] 16:46:04 CDT -[facility]HC CPT-24063 Level 3 Est. Patient [facility] 15:39:53 CDT -[facility] CPT-66999 Level 3 Est. Patient Maite Sanchez MD [facility] 13:33:34 CDT -RHC CPT-64298 Level 3 Est. Patient [facility] 11:37:08 CDT -[facility]HC CPT-34414 Level 3 Est. Patient [facility] 17:13:29 BLUE CRABBER -RHC CPT-10834 Level 3 Est. Patient [facility] 18:42:44 CDT CPT-81052 Level 3 Est. Patient [facility] 16:25:39 CDT CPT-67862 Level 3 Est. Patient Casey Brower [facility] 09:52:45 CDT -RHC CPT-19345 Level 3 Est. Patient [facility] 11:03:29 BLUE CRABBER -[facility] CPT-55462 Level 3 Est. Patient [facility] 11:03:08 BLUE CRABBER -[facility]HC CPT-99527 Level 3 Est. Patient [facility] 14:33:31 CDT -RHC CPT-28649 Level 3 Est. Patient [facility] 17:05:02 BLUE CRABBER -RHC CPT-18486 Level 3 Est. Patient [facility] 17:48:06 BLUE CRABBER -R[facility] CPT-74892 Level 3 Est. Patient [facility] 14:59:22 BLUE CRABBER -RHC CPT-19254 Level 3 Est. Patient Joseph Trivedi [facility] - 21:45:56 BLUE CRABBER Jose [facility] CPT-97749 Level 3 Est. Patient Joseph Trivedi [facility] 21:29:50 CDT -[facility] CPT-33327 Level 3 Est. Patient Joseph Trivedi [facility] 12:41:09 CDT -RHC Procedures Code Procedure Name Date Entry Date Standard Description CPT-71995 Wet Mount - LAB USE ONLY 12:39:03 BLUE CRABBER CPT-41458 Vaginal Culture - LAB USE ONLY 12:39:03 BLUE CRABBER CPT-15464 Urine Culture - LAB USE ONLY 11:52:44 BL[place]AB[place] CPT-42357 UA w micro - LAB USE ONLY 11:52:44 BLUE CRABBER CPT-89908 Postop F/U Visit 12:08:35 CDT CPT-90254 Postop F/U Visit 18:20:10 CDT CPT-A4351 [facility] Female Cath 09:37:10 CDT CPT-35501 Urine Dip (Floor Use Only) 15:17:13 CDT CPT-12556 Dil F ureth int 15:17:13 CDT CPT-35221 Venipuncture Draw Fee 09:19:08 CDT CPT-27585 Lipid - LAB USE ONLY 09:19:07 CDT CPT-JTINJ Asp/Joint Injection 09:26:49 CDT CPT-43272 Chest 2V Frontal and Lat 14:47:43 CDT CPT-JTINJ Asp/Joint Injection 09:51:53 BLUE CRABBER CPT-OV Office Visit 17:39:05 CDT CPT-OV Office Visit 15:19:50 CDT CPT-63692 Sono transvag pelvis non OB uterus ovaries cervix 18:04:34 CDT CPT-11929 Venipuncture Draw Fee 08:55:49 BLUE CRABBER
--- OUTSIDE RECORDS SUMMARY | 2016-11-20 13:35 | External Medical Summary | Clinical Summary ---
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 METFORMIN 2 tablet METFORMIN HCL 00737118134 Active Joseph Pineda Active HCL 500 MG daily for Farooq DO TB24 blood sugars LASIX 20 2 tablet by FUROSEMIDE 25523624710 Active Joseph Pineda Active MG TAB mouth daily Farooq DO CELEBREX 1 tablet by CELECOXIB 36116407456 Active Joseph Pineda Active 200 MG mouth daily Farooq DO CAPS with meals PREDNISONE 2 tablets 2 PREDNISONE 57607463405 No Joseph Pineda Active 20 MG TAB today, then 0 Longer Farooq DO 1 tablet 1 Active days 2-4 5 / 0 4 / 3 DIFLUCAN 1 tablet by 2 FLUCONAZOLE 18842610302 No Joseph W Active 100 MG TAB mouth daily 0 Longer Farooq DO x 3 days 1 Active 5 / 0 4 / 3 AMARYL 1 1 tablet GLIMEPIRIDE 03237299841 Active Joseph Pineda Active MG ORAL orally Farooq DO TABS twice daily DIFLUCAN 1 tablet by 2 FLUCONAZOLE 15559269493 No Joseph W Active 100 MG mouth every 0 Longer Farooq DO TABS other day 1 Active for 2 doses 5 / 0 1 / 2 3 ZOFRAN 4 1 po q6hr ONDANSETRON HCL 98115097881 Active Bam Active MG TABS PRN Nausea W Luis ONEAL PREDNISONE 2 tabs 2 PREDNISONE 37161848071 No Joseph Pineda Active 20 MG TAB daily for 3 0 Longer Farooq DO days, 1 tab 1 Active daily for 3 4 days, 1/2 / tab daily 1 for 2 days 0 / 2 5 TRAMADOL 1/2 po tid TRAMADOL HCL 37671759548 Active Joseph Pineda Active HCL 50 MG with ES Farooq DO TABS Tylenol prn pain AMOXICILLI 2 po BID x 2 AMOXICILLIN 62982936408 No Maite C Active N 500 MG 10 days 0 Longer Madril CAPS 1 Active PhD 0 / 2 0 LISINOPRIL 1 tablet by 2 LISINOPRIL 84379205391 No Maite C Active 20 MG TABS mouth 0 Longer Madril daily 1 Active PhD 0 / 1 0 POTASSIUM 2 capsule 2 POTASSIUM CHLORIDE 45924460255 No Joseph Pineda Active CHLORIDE by mouth 0 Longer Farooq DO CR 10 MEQ daily 1 Active CPCR 8 2 9 SPIRONOLAC 1 tablet by 2 SPIRONOLACTONE 02725567676 No Joseph Pineda Active TONE 25 MG mouth daily 0 Longer Farooq DO TAB 1 Active 4 / 0 8 / 2 9 METFORMIN 1 tablet 2 METFORMIN HCL 53761309639 No Joseph Pineda Active HCL 500 MG by mouth 0 Longer Farooq DO TABS twice daily 1 Active 4 / 0 8 / 2 9 AMARYL 1 1 tab twice 2 GLIMEPIRIDE 23442210211 No Joseph W Active MG TABS daily 0 Longer Farooq DO 1 Active 4 / 0 8 / 2 9 PHENTERMIN 1 po q am 2 PHENTERMINE HCL 01805446304 No Joseph W Active E HCL 37.5 for wt. 0 Longer Farooq DO MG TABS loss 1 Active 3 / 1 2 / 2 3 PROMETHAZI 1 tab by 2 PROMETHAZINE HCL 55535343602 No Joseph W Active NE HCL 25 mouth every 0 Longer Farooq DO MG TABS 6 hours as 1 Active needed 3 / 0 9 / 0 9 CIPROFLOXA Take one 2 CIPROFLOXACIN HCL 59515201971 No Joseph W Active DELORES HCL (1) tablet 0 Longer Farooq DO 500 MG by mouth 1 Active TABS twice a day 3 / 0 9 / 0 9 ABILIFY 5 one p.o. q. 2 ARIPIPRAZOLE 93155208559 No Joseph W Active MG TABS day 0 Longer Farooq DO 1 Active 3 / 0 9 / 0 9 HYDROCHLOR 2 tabs 2 HYDROCHLOROTHIAZID 67720865582 No Joseph W Active OTHIAZIDE every 0 E Longer Farooq DO 25 MG TABS morning 1 Active 3 / 0 6 / 2 7 ABILIFY 2 1 po q hs 2 ARIPIPRAZOLE 28991269351 No Joseph W Active MG TABS for major 0 Longer Farooq DO depression 1 Active 3 / 0 5 / 0 7 ADIPEX-P 1/2 tab po 2 PHENTERMINE HCL 06464791168 No Casey Active 37.5 MG q am for 0 Longer Leonarda CAPS weight loss 1 Active PA 3 / 0 5 / 0 1 CIPRO 500 1 tablet by 2 CIPROFLOXACIN HCL 13479130304 No Casey Active MG TAB mouth twice 0 Longer [place] daily 1 Active PA 3 / 0 5 / 0 1 NECON 1/35 1 po daily 2 NORETHINDRONE-ETH 95821567628 No Casey Active (28) 1-35 0 ESTRADIOL Longer Provo MG-MCG 1 Active PA TABS 3 / 0 5 / 0 1 TRAMADOL 1 po tid 2 TRAMADOL HCL 31401661491 No Casey Active HCL 50 MG with ES 0 Longer [place]vo TABS Tylenol 1 Active PA 3 / 0 5 / 0 1 FLUCONAZOL one p.o. q. 2 FLUCONAZOLE 12477015277 No Casey Active E 100 MG day 2 days 0 Longer Leonarda TABS 1 Active PA 3 / 0 5 / 0 1 POTASSIUM 1 capsule 2 POTASSIUM CHLORIDE 72190491400 No Casey Active CHLORIDE by mouth 0 Longer [place]vo CR 10 MEQ daily 1 Active PA CPCR 3 / 0 5 / 0 1 IMIPRAMINE Take 6 IMIPRAMINE HCL 15539679633 Active Bam Active HCL 50 MG tablets by W TABS mouth at [place] bedtime DIFLUCAN 1 tablet by 2 FLUCONAZOLE 45818578705 No Joseph W Active 100 MG TAB mouth daily 0 Longer Farooq DO 1 Active 2 / 0 2 / 2 4 METOPROLOL 1/2 tab po METOPROLOL 59429355756 Active Joseph W Active TARTRATE bid TARTRATE Farooq DO 25 MG TABS VERAPAMIL 2 po bid VERAPAMIL HCL 82684989790 Active Joseph W Active HCL CR 120 Farooq DO MG TAB CR PERMETHRIN apply neck 2 PERMETHRIN 88727441635 No Joseph W Active 5 % CREA to toes 0 Longer Farooq DO tonight and 1 Active then rinse 2 off in / morning. 0 repeat at 7 1 days / 2 0 SEROQUEL one p.o. q. 2 QUETIAPINE 16787958478 No Joseph W Active XR 50 MG evening 0 FUMARATE Longer Farooq DO [id number] 1 Active 2 / 0 1 / 2 0 TRAMADOL 1-2 tablets 2 TRAMADOL HCL 83983009195 No Joseph W Active HCL 50 MG every 6-8 0 Longer Farooq DO TABS hours as 1 Active needed for 2 pain / 0 1 / 2 0 ALPRAZOLAM one p.o. ALPRAZOLAM 53765043975 Active Joseph W Active 3 MG q.h.s. Farooq DO [id number] ALPRAZOLAM Take 1 2 ALPRAZOLAM 69701426725 No Joseph W Active XR tablet by 0 [id number] Longer Farooq DO [id number] mouth at 1 Active bedtime 1 / 2 9 DIFLUCAN 1 tablet by 2 FLUCONAZOLE 50246085935 No Joseph W Active 100 MG TAB mouth daily 0 Longer Farooq DO 1 Active 0 / 0 6 AMBIEN 10 1 tab by ZOLPIDEM TARTRATE 84318925687 Active Joseph W Active MG TAB mouth at Farooq DO bedtime as needed for sleep DIFLUCAN 100 1 tablet DIFLUCAN 19760111 FLUCONAZOLE Inactive MG TAB by mouth 100 MG TAB daily ALPRAZOLAM Take 1 ALPRAZOLAM ALPRAZOLAM Inactive XR [id number] tablet by XR [id number] mouth at [id number] bedtime TRAMADOL HCL 1-2 TRAMADOL 116067 TRAMADOL HCL Inactive 50 MG TABS tablets HCL 50 MG every 6-8 TABS hours as needed for pain SEROQUEL XR one p.o. SEROQUEL XR QUETIAPINE Inactive 50 MG q. evening 50 MG FUMARATE [id number] PERMETHRIN 5 apply neck PERMETHRIN 167129 PERMETHRIN Inactive % CREA to toes 5 % CREA tonight and then rinse off in morning. repeat at 7 days DIFLUCAN 100 1 tablet DIFLUCAN 035468 FLUCONAZOLE Inactive MG TAB by mouth 100 MG TAB daily POTASSIUM 1 capsule POTASSIUM POTASSIUM Inactive CHLORIDE CR by mouth CHLORIDE CR CHLORIDE 10 MEQ CPCR daily 10 MEQ CPCR FLUCONAZOLE one p.o. FLUCONAZOLE 19760111 FLUCONAZOLE Inactive 100 MG TABS q. day 2 100 MG TABS days TRAMADOL HCL 1 po tid TRAMADOL 520090 TRAMADOL HCL Inactive 50 MG TABS with ES HCL 50 MG Tylenol TABS NECON 1/35 1 po daily NECON /35 NORETHINDRONE- Inactive (28) 1-35 (28) 1-35 ETH ESTRADIOL MG-MCG TABS MG-MCG TABS CIPRO 500 MG 1 tablet CIPRO 500 001693 CIPROFLOXACIN Inactive TAB by mouth MG TAB HCL twice daily ADIPEX-P 1/2 tab po ADIPEX-P 943627 PHENTERMINE Inactive 37.5 MG CAPS q am for 37.5 MG HCL weight CAPS loss ABILIFY 2 MG 1 po q hs ABILIFY 2 422659 ARIPIPRAZOLE Inactive TABS for major MG TABS depression HYDROCHLOROT 2 tabs HYDROCHLORO 568083 HYDROCHLOROTHI Inactive HIAZIDE 25 every THIAZIDE 25 AZIDE MG TABS morning MG TABS ABILIFY 5 MG one p.o. ABILIFY 5 591222 ARIPIPRAZOLE Inactive TABS q. day MG TABS CIPROFLOXACI Take one CIPROFLOXAC 401591 CIPROFLOXACIN Inactive N HCL 500 MG (1) tablet IN HCL 500 HCL TABS by mouth MG TABS twice a day PROMETHAZINE 1 tab by PROMETHAZIN 794274 PROMETHAZINE Inactive HCL 25 MG mouth E HCL 25 MG HCL TABS every 6 TABS hours as needed PHENTERMINE 1 po q am PHENTERMINE 887161 PHENTERMINE Inactive HCL 37.5 MG for wt. HCL 37.5 MG HCL TABS loss TABS AMARYL 1 MG 1 tab AMARYL 1 MG 980324 GLIMEPIRIDE Inactive TABS twice TABS daily METFORMIN 1 tablet METFORMIN 122178 METFORMIN HCL Inactive HCL 500 MG by mouth HCL 500 MG TABS twice TABS daily SPIRONOLACTO 1 tablet SPIRONOLACT 344268 SPIRONOLACTONE Inactive NE 25 MG TAB by mouth ONE 25 MG daily TAB POTASSIUM 2 capsule POTASSIUM POTASSIUM Inactive CHLORIDE CR by mouth CHLORIDE CR CHLORIDE 10 MEQ CPCR daily 10 MEQ CPCR LISINOPRIL 1 tablet LISINOPRIL 577537 LISINOPRIL Inactive 20 MG TABS by mouth 20 MG TABS daily DIFLUCAN 100 1 tablet DIFLUCAN 749128 FLUCONAZOLE Inactive MG TABS by mouth 100 MG TABS every other day for 2 doses DIFLUCAN 100 1 tablet DIFLUCAN 532385 FLUCONAZOLE Inactive MG TAB by mouth 100 MG TAB daily x 3 days PREDNISONE 2 tablets PREDNISONE 889418 PREDNISONE Inactive 20 MG TAB today, 20 MG TAB then 1 tablet days 2-4 AMOXICILLIN 2 po BID x AMOXICILLIN 518731 AMOXICILLIN Inactive 500 MG CAPS 10 days 500 MG CAPS PREDNISONE 2 tabs PREDNISONE 594577 PREDNISONE Inactive 20 MG TAB daily for [...] pressure, diastolic - 8462-4 90 mm[Hg] BP unnez blood pressure, systolic - 8480-6 135 mm[Hg] [...] Panel - Chemistry sodium, serum 137 mmol/L 870-090 3299/08/29 potassium, serum 4.1 mmol/L 3.5-5.2 chloride, serum 100 mmol/L 98-107 carbon dioxide, venous blood 31.1 mmol/L 21.0-32.0 blood glucose 138 mg/dL 65-110 calcium, serum 9.2 mg/dL 8.5-10.1 urea nitrogen, blood 9 mg/dL 7-18 creatinine, serum 0.80 mg/dL 0.60-1.30 Lab Report: CBC, Comp. Metabolic Panel, HGBA1C - Chemistry sodium, serum 140 mmol/L 662-479 7374/04/13 potassium, serum 3.9 mmol/L 3.5-5.2 chloride, serum [...] 4.3-6.0 Encounters Code Encounter Date Provider Facility CPT-50407 Level 3 Est. Patient Joseph Trivedi [facility] 22:18:20 CDT -[facility] CPT-50498 Level 3 Est. Patient Joseph Trivedi [facility] 16:46:04 CDT -[facility] CPT-95679 Level 3 Est. Patient Joseph Trivedi [facility] 15:39:53 CDT [facility] CPT-08804 Level 3 Est. Patient Maite Sanchez MD [facility] 13:33:34 CDT -[facility] CPT-81867 Level 3 Est. Patient Joseph Trivedi [facility] 11:37:08 CDT -[facility] CPT-13030 Level 3 Est. Patient Joseph Trivedi [facility] 17:13:29 [facility] -[facility] CPT-37848 Level 3 Est. Patient Joseph Trivedi [facility] 18:42:44 CDT CPT-11280 Level 3 Est. Patient Joseph Pineda [facility] 16:25:39 CDT CPT-07183 Level 3 Est. Patient Casey Brower [facility] 09:52:45 CDT -[facility] CPT-25591 Level 3 Est. Patient Joseph Pineda [facility] 11:03:29 [facility] CPT-64776 Level 3 Est. Patient Joseph Pineda [facility] 11:03:08 [facility] -[facility] CPT-61177 Level 3 Est. Patient Joseph Pineda [facility] 14:33:31 CDT -[facility] CPT-51576 Level 3 Est. Patient Joseph Pineda [facility] 17:05:02 [facility] -[facility] CPT-20720 Level 3 Est. Patient Joseph Pineda [facility] 17:48:06 [facility] -[facility] CPT-94684 Level 3 Est. Patient Joseph Pineda [facility] 14:59:22 [facility] -[facility] CPT-23670 Level 3 Est. Patient Joseph Pineda [facility] - 21:45:56 [facility] [place] [facility] CPT-87582 Level 3 Est. Patient Joseph Pineda [facility] 21:29:50 CDT -[facility] CPT-61353 Level 3 Est. Patient Joseph Pineda [facility] 12:41:09 CDT -[facility] Procedures Code Procedure Name Date Entry Date Standard Description CPT-21232 Venipuncture Draw Fee 08:55:49 [facility]
--- OUTSIDE RECORDS SUMMARY | 2016-11-20 13:35 | External Medical Summary | Clinical Summary ---
:1965 Author Organization [facility] Address [address] [address] Phone Allergies, Adverse Reactions, Alerts Allergy Name Reaction Description Start Date Severity Status Provider NKDA Critical Active Indigo Jordanum DIRECTOR OF EMERGENCY NURSING NKDA Critical No Longer Indigo Yokum DIRECTOR OF EMERGENCY NURSING Active NKDA Critical Inactive Adrianna Elder Conditions [...] Other malaise 05/24 07/02 Yokum DIRECTOR OF EMERGENCY NURSING and fatigue SLEEP APNEA, 327.23 Active Joseph Pineda Obstructive OBSTRUCTIVE, 06/27 06/27 Farooq DO sleep apnea MILD (adult) (pediatric) OVERWEIGHT 278.02 Inactive Joseph Pineda Overweight 06/28 06/28 Farooq DO Obesity 278.00 Active Indigo Obesity, 06/28 10/18 Yokum DIRECTOR OF EMERGENCY NURSING unspecified OTH GENERAL V70.3 Resolved Maite Gutierrez Other general MEDICAL Laura ONEAL medical EXAMINATION PhD examination for ADMIN PURPOSES administrative purposes OTHER ABNORMAL 790.29 Resolved Maite C Other abnormal GLUCOSE 05/20 Laura ONEAL glucose PhD ACUTE 466.0 Resolved Maite C Acute BRONCHITIS 09/02 Laura ONEAL bronchitis PhD DEPENDENT 782.3 Resolved Indigo Edema EDEMA, LEGS, 10/29 10/18 Yokum DIRECTOR OF EMERGENCY NURSING BILATERAL HYPOKALEMIA, 276.8 Resolved Indigo Hypopotassemia MILD 10/29 07/02 Youm DIRECTOR OF EMERGENCY NURSING Diabetes, Type 250.00 Inactive Joseph Pineda Diabetes 2 06/27 06/27 Farooq DO mellitus without mention of complication, type II or unspecified type, not stated as uncontrolled Diabetes 250.02 Resolved Indigo Diabetes mellitus, type 06/27 DIRECTOR OF EMERGENCY NURSING mellitus II, without mention uncontrolled of complication, [...] Routine gynecological 12/14 07/02 Yo DIRECTOR OF EMERGENCY NURSING gynecological examination examination Postmenopausal 627.1 Resolved Indigo Postmenopausal bleeding 12/14 DIRECTOR OF EMERGENCY NURSING bleeding Screening for V76.51 Resolved Indigo Screening for malignant 12/26 07/02 Yokum DIRECTOR OF EMERGENCY NURSING malignant neoplasms of neoplasms of colon colon Insomnia, 307.42 Active Indigo 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 DIRECTOR OF EMERGENCY NURSING disorder of initiating or maintaining sleep Establish care V68.89 Resolved Indigo Encounters for or get 01/16 07/02 Yo DIRECTOR OF EMERGENCY NURSING other specified acquainted administrative visit purpose Weakness, left 342.90 Resolved Indigo Hemiplegia, side of body 06/20 10/18 Yokum DIRECTOR OF EMERGENCY NURSING unspecified, affecting unspecified side TIA 435.9 Active Indigo Unspecified 06/20 07/02 Yokum DIRECTOR OF EMERGENCY NURSING transient cerebral ischemia Knee pain, 719.46 Active Indigo Pain in joint bilateral 06/20 10/18 Yokum DIRECTOR OF EMERGENCY NURSING involving lower leg Bronchitis 490 Resolved Indigo Bronchitis, not 07/23 10/18 Yokum DIRECTOR OF EMERGENCY NURSING specified as acute or chronic Diabetes 357.2 Active Maliheh Polyneuropathy mellitus, 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MASS SPECTROMETRY MANAGER 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y Knee pain, 719.46 Active Indigo Pain in joint right 06/20 10/18 Yokum DIRECTOR OF EMERGENCY NURSING involving lower leg Jesi 112.3 Active Indigo Candidiasis of intertrigo 10/09 10/18 Yokum DIRECTOR OF EMERGENCY NURSING skin and nails ABNORMAL VAGINAL ICD-626.9 Inactive Maite Sanchez BLEEDING MD PhD SCABIES ICD-133.0 Inactive Maite Sanchez PhD FATIGUE ICD-780.79 Inactive Indigo Yokum DIRECTOR OF EMERGENCY NURSING OTH GENERAL ICD-V70.3 Inactive Maite Sanchez MEDICAL PhD EXAMINATION ADMIN PURPOSES OTHER ABNORMAL ICD-790.29 Inactive Maite Sanchez GLUCOSE PhD ACUTE BRONCHITIS ICD-466.0 Inactive Maite Sanchez PhD DEPENDENT EDEMA, ICD-782.3 Inactive Indigo Yokum LEGS, BILATERAL DIRECTOR OF EMERGENCY NURSING HYPOKALEMIA, MILD ICD-276.8 Inactive Indigo Yokum DIRECTOR OF EMERGENCY NURSING Diabetes mellitus, ICD-250.02 Inactive Indigo Yokum type II, DIRECTOR OF EMERGENCY NURSING uncontrolled Sinusitis, ICD-461.1 Inactive Ismael Coyne frontal, acute Amandeep ONEAL Laryngitis, acute ICD-464.00 Inactive Ismael Coyne Amandeep ONEAL Routine ICD-V72.31 Inactive Indigo Yokum gynecological DIRECTOR OF EMERGENCY NURSING examination Postmenopausal ICD-627.1 Inactive Indigo Yokum 2015 bleeding DIRECTOR OF EMERGENCY NURSING Screening for ICD-V76.51 Inactive Indigo Yokum 2015 malignant DIRECTOR OF EMERGENCY NURSING neoplasms of colon Establish care or ICD-V68.89 Inactive Indigo Yokum get acquainted DIRECTOR OF EMERGENCY NURSING visit Weakness, left ICD-342.90 Inactive Indigo Yokum side of body DIRECTOR OF EMERGENCY NURSING Bronchitis ICD-490 Inactive Indigo Yokum DIRECTOR OF EMERGENCY NURSING Medication List Medication Instructions Start Stop Generic NDC Status Provider Patient Date Date Name Instruction NYSTATIN apply to NYSTATIN [id number] Active Indigo Active 802428 UNIT/GM rash TID Yokum CREA PRN DIRECTOR OF EMERGENCY NURSING TROKENDI XR 2 tab daily TOPIRAMATE 79681535037 Active Maliheh Active 100 MG ORAL Ziglari [id number] MASS SPECTROMETRY MANAGER METOPROLOL 1 tab po METOPROLOL 56192464688 Active Indigo Active TARTRATE 25 MG bid TARTRATE Yokum TABS DIRECTOR OF EMERGENCY NURSING AZITHROMYCIN 2 po qd x 1 2 AZITHROMYCIN 99977095362 No Jillina Active 250 MG TABS day, then 1 0 Longer [place] po qd x 4 1 Active DIRECTOR OF EMERGENCY NURSING days 6 / 0 3 / 2 6 PREDNISONE 20 2 pills 2 PREDNISONE 91695059898 No Jillina Active MG TAB daily x 4 0 Longer [place] days 1 Active DIRECTOR OF EMERGENCY NURSING 6 / 0 3 / 2 5 PIOGLITAZONE take one a PIOGLITAZONE 70224274546 Active Maliheh Active HCL 30 MG ORAL day HCL Ziglari TABS MASS SPECTROMETRY MANAGER JANUVIA 100 MG 1 tablet by 2 SITAGLIPTIN 66917549264 No Indigo Active TABS mouth daily 0 PHOSPHATE Longer Yokum 1 Active DIRECTOR OF EMERGENCY NURSING 6 / 0 2 / 6 ATORVASTATIN 1 pill by ATORVASTATIN 56880753552 Active Indigo Active CALCIUM 10 MG mouth CALCIUM Yokum TABS nightly, DIRECTOR OF EMERGENCY NURSING for cholesterol ASPIRIN 81 MG 1 po qd ASPIRIN 09225311179 Active Indigo Active ORAL TABS Yokum DIRECTOR OF EMERGENCY NURSING NITROFURANTOIN One capsule 2 NITROFURANTOI 68274482535 No Indigo Active MONOHYD MACRO BID for UTI 0 N MONOHYD Longer Yokum 100 MG CAPS 1 MACRO Active DIRECTOR OF EMERGENCY NURSING 6 / 0 / 3 METFORMIN HCL 2 tablets METFORMIN HCL 26737667978 Active Indigo Active 500 MG TB24 by mouth Yokum twice daily DIRECTOR OF EMERGENCY NURSING TRAMADOL HCL 1/2 po tid 2 TRAMADOL HCL 77000513979 No Jillina Active 50 MG TABS with ES 0 Longer [place] Tylenol prn 1 Active DIRECTOR OF EMERGENCY NURSING pain 5 / 0 2 VYVANSE 20 MG 1 tablet 2 LISDEXAMFETAM 61228409360 No Jillina Active ORAL CAPS daily for 0 INE Longer [place] binge 1 DIMESYLATE Active DIRECTOR OF EMERGENCY NURSING eating 5 disorder / 0 2 LASIX 20 MG 2 tablet by FUROSEMIDE 52102971361 Active Indigo Active TAB mouth daily Yokum DIRECTOR OF EMERGENCY NURSING CELEBREX 200 1 tablet by CELECOXIB 79619864195 Active Indigo Active MG CAPS mouth daily Yokum with meals DIRECTOR OF EMERGENCY NURSING PREDNISONE 20 2 tablets 2 PREDNISONE 41278549564 No Joseph W Active MG TAB today, then 0 Longer Farooq DO 1 tablet 1 Active days 2-4 5 / 0 3 DIFLUCAN 100 1 tablet by 2 FLUCONAZOLE 14149443399 No Joseph W Active MG TAB mouth daily 0 Longer Farooq DO x 3 days 1 Active 5 / 0 4 / 3 AMARYL 1 MG 1 tablet GLIMEPIRIDE 73796796242 Active Indigo Active ORAL TABS orally Yokum twice daily DIRECTOR OF EMERGENCY NURSING DIFLUCAN 100 1 tablet by 2 FLUCONAZOLE 32539464967 No Joseph W Active MG TABS mouth every 0 Longer Farooq DO other day 1 Active for 2 doses 5 / 0 1 / 2 3 ZOFRAN 4 MG 1 po q6hr ONDANSETRON 91022186892 Active Joseph W Active TABS PRN Nausea HCL Farooq DO PREDNISONE 20 2 tabs 2 PREDNISONE 92931339011 No Joseph W Active MG TAB daily for 3 0 Longer Farooq DO days, 1 tab 1 Active daily for 3 4 days, 1/2 / tab daily 1 for 2 days 0 / 2 5 AMOXICILLIN 2 po BID x 2 AMOXICILLIN 51195872631 No Maite C Active 500 MG CAPS 10 days 0 Longer Madril 1 Active PhD 0 / 2 0 LISINOPRIL 20 1 tablet by 2 LISINOPRIL 35955777001 No Maite C Active MG TABS mouth 0 Longer Madril daily 1 Active PhD 0 / 0 POTASSIUM 2 capsule 2 POTASSIUM 48817954311 No Joseph W Active CHLORIDE CR 10 by mouth 0 CHLORIDE Longer Farooq DO MEQ CPCR daily 1 Active 4 / 0 8 / 2 9 SPIRONOLACTONE 1 tablet by 2 SPIRONOLACTON 15243067031 No Joseph W Active 25 MG TAB mouth daily 0 E Longer Farooq DO 1 Active 4 / 0 8 / 2 9 METFORMIN HCL 1 tablet 2 METFORMIN HCL 75297605129 No Joseph W Active 500 MG TABS by mouth 0 Longer Farooq DO twice daily 1 Active 4 / 0 8 / 2 9 AMARYL 1 MG 1 tab twice 2 GLIMEPIRIDE 37809004564 No Joseph W Active TABS daily 0 Longer Farooq DO 1 Active 4 / 0 8 / 2 9 PHENTERMINE 1 po q am 2 PHENTERMINE 47367211882 No Joseph W Active HCL 37.5 MG for wt. 0 HCL Longer Farooq DO TABS loss 1 Active / 2 / 2 3 PROMETHAZINE 1 tab by 2 PROMETHAZINE 47507559041 No Joseph W Active HCL 25 MG TABS mouth every 0 HCL Longer Farooq DO 6 hours as 1 Active needed 3 / 0 9 / 0 9 CIPROFLOXACIN Take one 2 CIPROFLOXACIN 38457314324 No Joseph W Active HCL 500 MG (1) tablet 0 HCL Longer Farooq DO TABS by mouth 1 Active twice a day 3 / 0 9 / 0 9 ABILIFY 5 MG one p.o. q. 2 ARIPIPRAZOLE 63315585532 No Joseph W Active TABS day 0 Longer Farooq DO 1 Active 3 / 0 9 / 0 9 HYDROCHLOROTHI 2 tabs 2 HYDROCHLOROTH 71513665538 No Joseph W Active AZIDE 25 MG every 0 IAZIDE Longer Farooq DO TABS morning 1 Active 3 / 0 6 / 2 7 ABILIFY 2 MG 1 po q hs 2 ARIPIPRAZOLE 68979250217 No Joseph W Active TABS for major 0 Longer Farooq DO depression 1 Active 3 / 0 5 / 0 7 ADIPEX-P 37.5 1/2 tab po 2 PHENTERMINE 36706493166 No Casey Active MG CAPS q am for 0 HCL Longer [place] weight loss 1 Active PA 3 / 0 5 / 0 1 CIPRO 500 MG 1 tablet by 2 CIPROFLOXACIN 19023339730 No Casey Active TAB mouth twice 0 HCL Longer [place] daily 1 Active PA 3 / 0 5 / 0 1 NECON 1/35 1 po daily 2 NORETHINDRONE 14259184417 No Casey Active (28) 1-35 0 -ETH Longer [place] MG-MCG TABS 1 ESTRADIOL Active PA 3 / 0 5 / 0 1 TRAMADOL HCL 1 po tid 2 TRAMADOL HCL 99434949472 No Casey Active 50 MG TABS with ES 0 Longer [place] Tylenol 1 Active PA 3 / 0 5 / 0 1 FLUCONAZOLE one p.o. q. 2 FLUCONAZOLE 24420876927 No Casey Active 100 MG TABS day 2 days 0 Longer [place] 1 Active PA 3 / 0 5 / 0 1 POTASSIUM 1 capsule 2 POTASSIUM 69513853365 No Casey Active CHLORIDE CR 10 by mouth 0 CHLORIDE Longer Leonarda MEQ CPCR daily 1 Active PA 3 / 0 5 / 0 1 IMIPRAMINE HCL Take 6 IMIPRAMINE 90305083195 Active Indigo Active 50 MG TABS tablets by HCL Yokum mouth at DIRECTOR OF EMERGENCY NURSING bedtime DIFLUCAN 100 1 tablet by 2 FLUCONAZOLE 40094638905 No Joseph W Active MG TAB mouth daily 0 Longer Farooq DO 1 Active 2 / 0 2 / 2 4 VERAPAMIL HCL 2 po bid VERAPAMIL HCL 79764087816 Active Indigo Active CR 120 MG TAB Yokum CR DIRECTOR OF EMERGENCY NURSING PERMETHRIN 5 % apply neck 2 PERMETHRIN 30789038117 No Joseph W Active CREA to toes 0 Longer Farooq DO tonight and 1 Active then rinse 2 off in / morning. 0 repeat at 7 1 days / 2 0 SEROQUEL XR 50 one p.o. q. 2 QUETIAPINE 94758675058 No Joseph W Active MG [id number] evening 0 FUMARATE Longer Farooq DO 1 Active 2 / 0 1 / 2 0 TRAMADOL HCL 1-2 tablets 2 TRAMADOL HCL 07005938435 No Joseph W Active 50 MG TABS every 6-8 0 Longer Farooq DO hours as 1 Active needed for 2 pain / 0 1 / 2 0 ALPRAZOLAM 3 one p.o. ALPRAZOLAM 72233100169 Active Indigo Active MG [id number] q.h.s. Yokum DIRECTOR OF EMERGENCY NURSING ALPRAZOLAM XR Take 1 2 ALPRAZOLAM 89423145744 No Joseph W Active [id number] tablet by 0 [id number] Longer Farooq DO mouth at 1 Active bedtime 1 / 2 9 DIFLUCAN 100 1 tablet by 2 FLUCONAZOLE 59067552675 No Joseph W Active MG TAB mouth daily 0 Longer Farooq DO 1 Active 0 / 0 6 AMBIEN 10 MG 1 tab by ZOLPIDEM 87245420848 Active Indigo Active TAB mouth at TARTRATE Yokum bedtime as DIRECTOR OF EMERGENCY NURSING needed for sleep DIFLUCAN 100 1 tablet DIFLUCAN 662014 FLUCONAZOLE Inactive MG TAB by mouth 100 MG TAB daily ALPRAZOLAM Take 1 ALPRAZOLAM ALPRAZOLAM Inactive XR [id number] tablet by XR [id number] mouth at [id number] bedtime TRAMADOL HCL 1-2 TRAMADOL 744147 TRAMADOL HCL Inactive 50 MG TABS tablets HCL 50 MG every 6-8 TABS hours as needed for pain SEROQUEL XR one p.o. SEROQUEL XR QUETIAPINE Inactive 50 MG q. 50 MG FUMARATE [id number] evening [id number] PERMETHRIN 5 apply PERMETHRIN 191491 PERMETHRIN Inactive % CREA neck to 5 % CREA toes tonight and then rinse off in morning. repeat at 7 days DIFLUCAN 100 1 tablet DIFLUCAN 184583 FLUCONAZOLE Inactive MG TAB by mouth 100 MG TAB daily POTASSIUM 1 capsule POTASSIUM POTASSIUM Inactive CHLORIDE CR by mouth CHLORIDE CR CHLORIDE 10 MEQ CPCR daily 10 MEQ CPCR FLUCONAZOLE one p.o. FLUCONAZOLE 19760111 FLUCONAZOLE Inactive 100 MG TABS q. day 2 100 MG TABS days TRAMADOL HCL 1 po tid TRAMADOL 776996 TRAMADOL HCL Inactive 50 MG TABS with ES HCL 50 MG Tylenol TABS NECON 1/35 1 po NECON 1/35 NORETHINDRONE- Inactive (28) 1-35 daily (28) 1-35 ETH ESTRADIOL MG-MCG TABS MG-MCG TABS CIPRO 500 MG 1 tablet CIPRO 500 738005 CIPROFLOXACIN Inactive TAB by mouth MG TAB HCL twice daily ADIPEX-P 1/2 tab ADIPEX-P 914333 PHENTERMINE Inactive 37.5 MG CAPS po q am 37.5 MG HCL for CAPS weight loss ABILIFY 2 MG 1 po q hs ABILIFY 2 176959 ARIPIPRAZOLE Inactive TABS for major MG TABS depressio n HYDROCHLOROT 2 tabs HYDROCHLORO 157595 HYDROCHLOROTHI Inactive HIAZIDE 25 every THIAZIDE 25 AZIDE MG TABS morning MG TABS ABILIFY 5 MG one p.o. ABILIFY 5 483440 ARIPIPRAZOLE Inactive TABS q. day MG TABS CIPROFLOXACI Take one CIPROFLOXAC 317618 CIPROFLOXACIN Inactive N HCL 500 MG (1) IN HCL 500 HCL TABS tablet by MG TABS mouth twice a day PROMETHAZINE 1 tab by PROMETHAZIN 442326 PROMETHAZINE Inactive HCL 25 MG mouth E HCL 25 MG HCL TABS every 6 TABS hours as needed PHENTERMINE 1 po q am PHENTERMINE 008659 PHENTERMINE Inactive HCL 37.5 MG for wt. HCL 37.5 MG HCL TABS loss TABS AMARYL 1 MG 1 tab AMARYL 1 MG 670126 GLIMEPIRIDE Inactive TABS twice TABS daily METFORMIN 1 tablet METFORMIN 163152 METFORMIN HCL Inactive HCL 500 MG by mouth HCL 500 MG TABS twice TABS daily SPIRONOLACTO 1 tablet SPIRONOLACT 344983 SPIRONOLACTONE Inactive NE 25 MG TAB by mouth ONE 25 MG daily TAB POTASSIUM 2 capsule POTASSIUM POTASSIUM Inactive CHLORIDE CR by mouth CHLORIDE CR CHLORIDE 10 MEQ CPCR daily 10 MEQ CPCR LISINOPRIL 1 tablet LISINOPRIL 146637 LISINOPRIL Inactive 20 MG TABS by mouth 20 MG TABS daily DIFLUCAN 100 1 tablet DIFLUCAN 990453 FLUCONAZOLE Inactive MG TABS by mouth 100 MG TABS every other day for 2 doses DIFLUCAN 100 1 tablet DIFLUCAN 540878 FLUCONAZOLE Inactive MG TAB by mouth 100 MG TAB daily x 3 days PREDNISONE 2 tablets PREDNISONE 037658 PREDNISONE Inactive 20 MG TAB today, 20 MG TAB then 1 tablet days 2-4 VYVANSE 20 1 tablet VYVANSE 20 LISDEXAMFETAMI Inactive MG ORAL CAPS daily for MG ORAL NE DIMESYLATE binge CAPS eating disorder TRAMADOL HCL 1/2 po TRAMADOL 151464 TRAMADOL HCL Inactive 50 MG TABS tid with HCL 50 MG ES TABS Tylenol prn pain JANUVIA 100 1 tablet JANUVIA 100 SITAGLIPTIN Inactive MG TABS by mouth MG TABS PHOSPHATE daily AMOXICILLIN 2 po BID AMOXICILLIN 274142 AMOXICILLIN Inactive 500 MG CAPS x 10 days 500 MG CAPS PREDNISONE 2 tabs PREDNISONE 499681 PREDNISONE Inactive 20 MG TAB daily for 20 MG TAB 3 days, 1 tab daily for 3 days, 1/2 tab daily for 2 days NITROFURANTO One NITROFURANT 5072133 NITROFURANTOIN Inactive IN MONOHYD capsule OIN MONOHYD MONOHYD MACRO MACRO 100 MG BID for MACRO 100 CAPS UTI MG CAPS PREDNISONE 2 pills PREDNISONE 121133 PREDNISONE Inactive 20 MG TAB daily x 4 20 MG TAB days AZITHROMYCIN 2 po qd x AZITHROMYCI 5827747 AZITHROMYCIN Inactive 250 MG TABS 1 day, [...] HGBA1C - Chemistry sodium, serum 140 mmol/L 017-135 5452/06/03 potassium, serum 3.9 mmol/L 3.5-5.2 chloride, serum [...] 198 10^3/MM^3 10*3/mm3 142-424 Lab Report: Chlamydia/GC APTIMA/[id number] - Lab chlamydia DNA probe NOT DETECTED NOT DETECTED Lab Report: Chlamydia/GC APTIMA/[id number] - Microbiology Neisseria gonorrhoeae DNA probe NOT DETECTED NOT DETECTED Lab Report: Comp. Metabolic Panel, Lipid Panel - Chemistry sodium, serum 136 mmol/L 299-652 7376/01/04 carbon dioxide, venous blood 27.0 mmol/L 21.0-32.0 potassium, serum 4.6 mmol/L 3.5-5.2 chloride, serum 98 mmol/L 98-107 blood glucose 174 mg/dL 65-110 urea nitrogen, blood 12 mg/dL 7-18 creatinine, serum 0.78 mg/dL 0.55-1.30 alanine aminotransferase (SGPT), serum 65 U/L 12-78 aspartate aminotransferase (SGOT), serum 34 U/L 15-37 calcium, serum 8.9 mg/dL 8.5-10.1 bilirubin, serum, total 0.40 mg/dL 0.00-1.00 cholesterol, serum 219 mg/dL 486-020 2752/01/04 triglyceride, serum, fasting 214 mg/dL 30-200 HDL [...] mg/g mg/g{creat} 0-29 sodium, serum 140 mmol/L 706-245 9650/07/21 potassium, serum 3.9 mmol/L 3.5-5.2 chloride, serum [...] mg/dL Encounters Code Encounter Date Provider Facility CPT-05673 Level 4 Est. Patient Indigo Sexton [facility] [place] 10:01:06 CDT [place] CPT-89593 Level 3 Est. Patient Arnold [facility] 08:58:07 CDT MASS SPECTROMETRY MANAGER CPT-48900 Level 3 Est. Patient Faby Marino [facility] 14:40:56 CDT DIRECTOR OF EMERGENCY NURSING CPT-02289 Level 4 Est. Patient Arnold Berrios [facility] 17:29:53 MANUFACTURING OPERATOR MASS SPECTROMETRY MANAGER CPT-00707 Level 4 Est. Patient Indigo Sexton [facility] [place] 09:51:54 MANUFACTURING OPERATOR CPT-13778 Level 3 Est. Patient Indigo Sexton [facility] [place] 18:59:38 CDT CPT-33394 Level 3 Est. Patient Joseph Pineda [facility] 14:42:12 CDT -[facility] CPT-48801 Level 3 Est. Patient Joseph Pineda [facility] 22:18:20 CDT -RHC CPT-02110 Level 3 Est. Patient Joseph Pineda [facility] 16:46:04 CDT -RHC CPT-31721 Level 3 Est. Patient Hannibal Edwin [facility] 15:39:53 CDT -RHC CPT-46374 Level 3 Est. Patient Maite Sanchez MD [facility] 13:33:34 CDT -RHC CPT-10718 Level 3 Est. Patient Joseph Pineda [facility] 11:37:08 CDT -RHC CPT-17738 Level 3 Est. Patient Joseph Pineda [facility] 17:13:29 MANUFACTURING OPERATOR -RHC CPT-40028 Level 3 Est. Patient Joseph Pineda [facility] 18:42:44 CDT CPT-72315 Level 3 Est. Patient Joseph Pineda [facility] 16:25:39 CDT CPT-38646 Level 3 Est. Patient Casey ARCHIBALD [facility] 09:52:45 CDT -RHC CPT-86037 Level 3 Est. Patient Joseph Pineda [facility] 11:03:29 MANUFACTURING OPERATOR -RHC CPT-49993 Level 3 Est. Patient Joseph Edwin [facility] 11:03:08 MANUFACTURING OPERATOR -RHC CPT-89449 Level 3 Est. Patient Joseph Pineda [facility] 14:33:31 CDT -RHC CPT-96135 Level 3 Est. Patient Joseph Pineda [facility] 17:05:02 MANUFACTURING OPERATOR -RHC CPT-03835 Level 3 Est. Patient Joseph Pineda [facility] 17:48:06 MANUFACTURING OPERATOR -RHC CPT-84708 Level 3 Est. Patient Joseph Pineda [facility] 14:59:22 MANUFACTURING OPERATOR -RHC CPT-24155 Level 3 Est. Patient Joseph Pineda [facility] - 21:45:56 MANUFACTURING OPERATOR [place] [facility] CPT-06823 Level 3 Est. Patient Joseph Pineda [facility] 21:29:50 CDT -RHC CPT-22090 Level 3 Est. Patient Joseph Pineda [facility] 12:41:09 CDT -RHC Procedures Code Procedure Name Date Entry Date Standard Description CPT-JTINJ Asp/Joint Injection 09:26:49 CDT CPT-88869 Chest 2V Frontal and Lat 14:47:43 CDT CPT-JTINJ Asp/Joint Injection 09:51:53 MANUFACTURING OPERATOR CPT-OV Office Visit 17:39:05 CDT CPT-OV Office Visit 15:19:50 CDT CPT-97195 Sono transvag pelvis non OB uterus ovaries cervix 18:04:34 CDT CPT-91208 Venipuncture Draw Fee 08:55:49 MANUFACTURING OPERATOR
--- OUTSIDE RECORDS SUMMARY | 2016-11-20 13:36 | External Medical Summary | Clinical Summary ---
:1965 Author Organization [facility] [place] Address [address] [address] Phone Allergies, Adverse Reactions, Alerts Allergy Name Reaction Description Start Date Severity Status Provider VERSED States jsut about Critical Active Gloria Saavedra ATHLETIC SHOE DESIGNER killed her NKDA Critical Active Indigo Yokum TOBACCO SCRAP SIFTER NKDA Critical No Longer Indigo Yokum TOBACCO SCRAP SIFTER Active NKDA Critical Inactive Adrianna Elder Conditions [...] Resolved Indigo Other malaise 05/24 07/02 Yokum TOBACCO SCRAP SIFTER and fatigue SLEEP APNEA, 327.23 Active Joseph Pineda Obstructive OBSTRUCTIVE, 06/27 06/27 Farooq DO sleep apnea MILD (adult) (pediatric) OVERWEIGHT 278.02 Inactive Joseph Pineda Overweight 06/28 06/28 Farooq DO Obesity 278.00 Active Indigo Obesity, 06/28 10/18 Yokum TOBACCO SCRAP SIFTER unspecified OTH GENERAL V70.3 Resolved Maite Gutierrez Other general MEDICAL Laura ONEAL medical EXAMINATION PhD examination for ADMIN administrative PURPOSES purposes OTHER 790.29 Resolved Maite C Other abnormal ABNORMAL 05/20 Laura ONEAL glucose GLUCOSE PhD ACUTE 466.0 Resolved Maite Gutierrez Acute bronchitis BRONCHITIS 09/02 Laura ONEAL PhD DEPENDENT 782.3 Resolved Indigo Edema EDEMA, LEGS, 10/29 10/18 Yokum TOBACCO SCRAP SIFTER BILATERAL HYPOKALEMIA, 276.8 Resolved Indigo Hypopotassemia MILD 10/29 07/02 Yokum TOBACCO SCRAP SIFTER Diabetes, 250.00 Inactive Joseph Pineda Diabetes Type 2 06/27 06/27 Farooq DO mellitus without mention of complication, type II or unspecified type, not stated as uncontrolled Diabetes 250.02 Resolved Indigo Diabetes mellitus, 06/27 10/18 Yokum TOBACCO SCRAP SIFTER mellitus without type II, mention of uncontrolled [...] Resolved Indigo Routine gynecological 12/14 07/02 Yokum TOBACCO SCRAP SIFTER gynecological examination examination Postmenopausa 627.1 Resolved Indigo Postmenopausal l bleeding 12/14 07/02 Yokum TOBACCO SCRAP SIFTER bleeding Screening for V76.51 Resolved Indigo Screening for malignant 12/26 07/02 Yokum TOBACCO SCRAP SIFTER malignant neoplasms of neoplasms of colon colon Insomnia, 307.42 Active Nidigo 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 SCRAP SIFTER disorder of initiating or maintaining sleep Establish V68.89 Resolved Indigo Encounters for care or get 01/16 07/02 Yokum TOBACCO SCRAP SIFTER other specified acquainted administrative visit purpose Weakness, 342.90 Resolved Indigo Hemiplegia, left side of 06/20 10/18 Yokum TOBACCO SCRAP SIFTER unspecified, body affecting unspecified side TIA 435.9 Active Indigo Unspecified 06/20 07/02 Yokum TOBACCO SCRAP SIFTER transient cerebral ischemia Knee pain, 719.46 Active Indigo Pain in joint bilateral 06/20 10/18 Yokum TOBACCO SCRAP SIFTER involving lower leg Bronchitis 490 Resolved Indigo Bronchitis, not 07/23 10/18 Yokum TOBACCO SCRAP SIFTER specified as acute or chronic Diabetes 357.2 Active Maliheh Polyneuropathy mellitus, 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 PERFORMANCE TEST CONSULTANT 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 y Knee pain, 719.46 Active Indigo Pain in joint right 06/20 10/18 Yokum TOBACCO SCRAP SIFTER involving lower leg Jeis 112.3 Active Indigo Candidiasis of intertrigo 10/09 10/18 Yokum TOBACCO SCRAP SIFTER skin and nails Hyperlipidemi 272.4 Active Anne Other and a 12/24 12/24 Neil unspecified RMA hyperlipidemia Incontinence, 788.33 Active Indigo Mixed mixed, 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 TOBACCO SCRAP SIFTER incontinence urge/stress (female) (male) Female stress 625.6 Active Yury Monaco Stress incontinence 01/03 01/03 Cy patel MD female Vaginal odor 623.8 Active Gloria Other specified 05/28 05/28 Naff ATHLETIC SHOE DESIGNER noninflammatory disorders of vagina Urinary tract 599.0 Active Indigo Urinary tract infection 05/28 05/28 Yokum TOBACCO SCRAP SIFTER infection, site not specified ABNORMAL VAGINAL ICD-626.9 Inactive Maite Sanchez BLEEDING PhD SCABIES ICD-133.0 Inactive Maite Sanchez PhD FATIGUE ICD-780.79 Inactive Indigo Yokum TOBACCO SCRAP SIFTER OTH GENERAL ICD-V70.3 Inactive Maite Sanchez MEDICAL MD PhD EXAMINATION ADMIN PURPOSES OTHER ABNORMAL ICD-790.29 Inactive Maite Sanchez GLUCOSE PhD ACUTE BRONCHITIS ICD-466.0 Inactive Maite Sanchez PhD DEPENDENT EDEMA, ICD-782.3 Inactive Indigo Yokum LEGS, BILATERAL TOBACCO SCRAP SIFTER HYPOKALEMIA, MILD ICD-276.8 Inactive Indigo Yokum TOBACCO SCRAP SIFTER Diabetes mellitus, ICD-250.02 Inactive Indigo Yokum type II, TOBACCO SCRAP SIFTER uncontrolled Sinusitis, ICD-461.1 Inactive Ismael Coyne frontal, acute Amandeep ONEAL Laryngitis, acute ICD-464.00 Inactive Ismael Coyne Amandeep ONEAL Routine ICD-V72.31 Inactive Indigo Yokum gynecological TOBACCO SCRAP SIFTER examination Postmenopausal ICD-627.1 Inactive Indigo Yokum 2015 bleeding TOBACCO SCRAP SIFTER Screening for ICD-V76.51 Inactive Indigo Yokum 2015 malignant TOBACCO SCRAP SIFTER neoplasms of colon Establish care or ICD-V68.89 Inactive Indigo Yokum get acquainted TOBACCO SCRAP SIFTER visit Weakness, left ICD-342.90 Inactive Indigo Yokum side of body TOBACCO SCRAP SIFTER Bronchitis ICD-490 Inactive Indigo Yokum TOBACCO SCRAP SIFTER Medication List Medication Instructions Start Stop Generic NDC Status Provider Patient Date Date Name Instruction VESGARETHRE 5 1 tablet SOLIFENACIN 55148043133 Active J Carlos Enrique Active MG TABS daily SUCCINATE Cy ONEAL CIPRO 250 MG 1 tablet 2 CIPROFLOXACIN 10119203427 No Indigo Active TAB by mouth 0 HCL Longer Yokum twice 1 Active TOBACCO SCRAP SIFTER daily 7 / 0 1 7 METFORMIN 2 tablets 2 METFORMIN HCL 84571332065 No Indigo Active HCL 500 MG by mouth 0 Longer Yokum TB24 twice 1 Active TOBACCO SCRAP SIFTER daily 2 AMARYL 1 MG 1 tablet 2 GLIMEPIRIDE 74014426390 No Indigo Active ORAL TABS orally 0 Longer Yokum twice 1 Active TOBACCO SCRAP SIFTER daily 2 NYSTATIN apply to NYSTATIN 26189697879 Active Indigo Active 919677 rash TID Yokum UNIT/GM CREA PRN TOBACCO SCRAP SIFTER TROKENDI XR 2 tab TOPIRAMATE 94549576885 Active Maliheh Active 100 MG ORAL daily Ziglari [id number] PERFORMANCE TEST CONSULTANT METOPROLOL 1 tab po METOPROLOL 76933677247 Active Indigo Active TARTRATE 25 bid TARTRATE Yokum MG TABS TOBACCO SCRAP SIFTER AZITHROMYCIN 2 po qd x 2 AZITHROMYCIN 93453682022 No Jillina Active 250 MG TABS 1 day, 0 Longer Frazell then 1 po 1 Active TOBACCO SCRAP SIFTER qd x 4 6 days / 0 3 / 2 6 PREDNISONE 2 pills 2 PREDNISONE 57416372435 No Jillina Active 20 MG TAB daily x 4 0 Longer Frazell days 1 Active TOBACCO SCRAP SIFTER 6 / 0 3 / 2 5 PIOGLITAZONE take one a PIOGLITAZONE 66028139728 Active Maliheh Active HCL 30 MG day HCL Ziglari ORAL TABS PERFORMANCE TEST CONSULTANT JANUVIA 100 1 tablet 2 SITAGLIPTIN 84568322434 No Indigo Active MG TABS by mouth 0 PHOSPHATE Longer Yokum daily 1 Active TOBACCO SCRAP SIFTER 6 / 0 2 / 1 6 ATORVASTATIN 1 pill by ATORVASTATIN 89867782840 Active Indigo Active CALCIUM 10 mouth CALCIUM Yokum MG TABS nightly, TOBACCO SCRAP SIFTER for cholestero l ASPIRIN 81 1 po qd ASPIRIN 20554845669 Active Indigo Active MG ORAL TABS Yokum TOBACCO SCRAP SIFTER NITROFURANTO One 2 NITROFURANTOIN 52573754377 No Indigo Active IN MONOHYD capsule 0 MONOHYD MACRO Longer Yokum MACRO 100 MG BID for 1 Active TOBACCO SCRAP SIFTER CAPS UTI 6 / 0 2 / 3 TRAMADOL HCL 1/2 po tid 2 TRAMADOL HCL 43154229962 No Jillina Active 50 MG TABS with ES 0 Longer [place]ell Tylenol 1 Active TOBACCO SCRAP SIFTER prn pain 5 / 0 2 VYVANSE 20 1 tablet 2 LISDEXAMFETAMIN 11923065573 No Jillina Active MG ORAL CAPS daily for 0 E DIMESYLATE Longer [place] binge 1 Active TOBACCO SCRAP SIFTER eating 5 disorder / 0 2 LASIX 20 MG 2 tablet FUROSEMIDE 62067165869 Active Indigo Active TAB by mouth Yokum daily TOBACCO SCRAP SIFTER CELEBREX 200 1 tablet CELECOXIB 47611625343 Active Indigo Active MG CAPS by mouth Yokum daily with TOBACCO SCRAP SIFTER meals PREDNISONE 2 tablets 2 PREDNISONE 58391320480 No Joseph W Active 20 MG TAB today, 0 Longer Farooq DO then 1 1 Active tablet 5 days 2-4 / 0 4 3 DIFLUCAN 100 1 tablet 2 FLUCONAZOLE 87340926512 No Joseph W Active MG TAB by mouth 0 Longer Farooq DO daily x 3 1 Active days 5 / 0 4 / 1 3 DIFLUCAN 100 1 tablet 2 FLUCONAZOLE 82466000793 No Joseph W Active MG TABS by mouth 0 Longer Farooq DO every 1 Active other day 5 for 2 / doses 0 1 / 2 3 ZOFRAN 4 MG 1 po q6hr ONDANSETRON HCL 24423246997 Active Joseph W Active TABS PRN Nausea Farooq DO PREDNISONE 2 tabs 2 PREDNISONE 46019443711 No Joseph W Active 20 MG TAB daily for 0 Longer Farooq DO 3 days, 1 1 Active tab daily 4 for 3 / days, 1/2 1 tab daily 0 for 2 days / 2 5 AMOXICILLIN 2 po BID x 2 AMOXICILLIN 38012616281 No Maite C Active 500 MG CAPS 10 days 0 Longer Madril MD 1 Active PhD 4 0 / 2 0 LISINOPRIL 1 tablet 2 LISINOPRIL 95522812010 No Maite Gutierrez Active 20 MG TABS by mouth 0 Longer Laura ONEAL daily 1 Active PhD 4 0 / 1 0 POTASSIUM 2 capsule 2 POTASSIUM 36716126210 No Joseph W Active CHLORIDE CR by mouth 0 CHLORIDE Longer Farooq DO 10 MEQ CPCR daily 1 Active 4 0 8 / 2 9 SPIRONOLACTO 1 tablet 2 SPIRONOLACTONE 48695557664 No Joseph W Active NE 25 MG TAB by mouth 0 Longer Farooq DO daily 1 Active 4 0 8 / 2 9 METFORMIN 1 tablet 2 METFORMIN HCL 58234240434 No Joseph W Active HCL 500 MG by mouth 0 Longer Farooq DO TABS twice 1 Active daily 4 8 / 2 9 AMARYL 1 MG 1 tab 2 GLIMEPIRIDE 93246962611 No Joseph W Active TABS twice 0 Longer Farooq DO daily 1 Active 4 / 0 8 2 9 PHENTERMINE 1 po q am 2 PHENTERMINE HCL 28987204046 No Joseph W Active HCL 37.5 MG for wt. 0 Longer Farooq DO TABS loss 1 Active 3 / 2 / 2 3 PROMETHAZINE 1 tab by 2 PROMETHAZINE 32279062624 No Joseph W Active HCL 25 MG mouth 0 HCL Longer Farooq DO TABS every 6 1 Active hours as 3 needed / 0 9 / 0 9 CIPROFLOXACI Take one 2 CIPROFLOXACIN 24166934054 No Joseph W Active N HCL 500 MG (1) tablet 0 HCL Longer Farooq DO TABS by mouth 1 Active twice a 3 day / 0 9 / 0 9 ABILIFY 5 MG one p.o. 2 ARIPIPRAZOLE 27031821095 No Joseph W Active TABS q. day 0 Longer Farooq DO 1 Active 3 / 0 9 / 0 9 HYDROCHLOROT 2 tabs 2 HYDROCHLOROTHIA 83809065730 No Joseph W Active HIAZIDE 25 every 0 ZIDE Longer Farooq DO MG TABS morning 1 Active 3 / 0 6 / 2 7 ABILIFY 2 MG 1 po q hs 2 ARIPIPRAZOLE 02772921472 No Joseph W Active TABS for major 0 Longer [facility] depression 1 Active 3 / 0 5 / 0 7 ADIPEX-P 1/2 tab po 2 PHENTERMINE HCL 07308341905 No Casey Active 37.5 MG CAPS q am for 0 Longer [facility] weight 1 Active loss 3 / 0 5 / 0 1 CIPRO 500 MG 1 tablet 2 CIPROFLOXACIN 80157363441 No Casey Active TAB by mouth 0 HCL Longer [facility] twice 1 Active daily 3 / 0 5 / 0 1 NECON 1 po daily 2 NORETHINDRONE-E 83041520528 No Casey Active () 1- 0 ESTRADIOL Longer [facility] MG-MCG TABS 1 Active 3 / 0 5 / 0 1 TRAMADOL HCL 1 po tid 2 TRAMADOL HCL 10213940124 No Casey Active 50 MG TABS with ES 0 Longer [facility] Tylenol 1 Active 3 / 0 5 / 0 1 FLUCONAZOLE one p.o. 2 FLUCONAZOLE 02932003446 No Casey Active 100 MG TABS q. day 2 0 Longer [facility] days 1 Active 3 / 0 5 / 0 1 POTASSIUM 1 capsule 2 POTASSIUM 66338854921 No Casey Active CHLORIDE CR by mouth 0 CHLORIDE Longer [facility] 10 MEQ CPCR daily 1 Active 3 / 0 5 / 0 1 IMIPRAMINE Take 6 IMIPRAMINE HCL 11323073708 Active Indigo Active HCL 50 MG tablets by [facility]okum TABS mouth at TOBACCO SCRAP SIFTER bedtime DIFLUCAN 100 1 tablet 2 FLUCONAZOLE 49033320987 No Joseph W Active MG TAB by mouth 0 Longer [facility] daily 1 Active 2 / 0 2 / 2 4 VERAPAMIL 2 po bid VERAPAMIL HCL 23871607594 Active Indigo Active HCL CR 120 Yokum MG TAB CR TOBACCO SCRAP SIFTER PERMETHRIN 5 apply neck 2 PERMETHRIN 83483959971 No Joseph W Active % CREA to toes 0 Longer [facility] tonight 1 Active and then 2 rinse off / in 0 morning. 1 repeat at / 7 days 2 0 SEROQUEL XR one p.o. 2 QUETIAPINE 34129575826 No Joseph W Active 50 MG q. evening 0 FUMARATE Longer Farooq DO [id number] 1 Active 2 / 0 1 / 2 0 TRAMADOL HCL 1-2 2 TRAMADOL HCL 49174579629 No Joseph W Active 50 MG TABS tablets 0 Longer Farooq DO every 6-8 1 Active hours as 2 needed for / pain 0 1 / 2 0 ALPRAZOLAM 3 one p.o. ALPRAZOLAM 77473702649 Active Indigo Active MG [id number] q.h.s. Yokum TOBACCO SCRAP SIFTER ALPRAZOLAM Take 1 2 ALPRAZOLAM 44775872731 No Joseph W Active XR [id number] tablet by 0 [id number] Longer Farooq DO mouth at 1 Active bedtime 1 / 9 DIFLUCAN 100 1 tablet 2 FLUCONAZOLE 84240779259 No Joseph W Active MG TAB by mouth 0 Longer Farooq DO daily 1 Active 0 / 0 6 AMBIEN 10 MG 1 tab by ZOLPIDEM 26871266624 Active Indigo Active TAB mouth at TARTRATE Yokum bedtime as TOBACCO SCRAP SIFTER needed for sleep DIFLUCAN 100 1 tablet DIFLUCAN 576345 FLUCONAZOLE Inactive MG TAB by mouth 100 MG TAB daily ALPRAZOLAM Take 1 ALPRAZOLAM ALPRAZOLAM Inactive XR [id number] tablet by XR [id number] mouth at [id number] bedtime TRAMADOL HCL 1-2 TRAMADOL 892371 TRAMADOL HCL Inactive 50 MG TABS tablets HCL 50 MG every 6-8 TABS hours as needed for pain SEROQUEL XR one p.o. SEROQUEL XR QUETIAPINE Inactive 50 MG q. 50 MG FUMARATE [id number] evening [id number] PERMETHRIN 5 apply PERMETHRIN 626853 PERMETHRIN Inactive % CREA neck to 5 % CREA toes tonight and then rinse off in morning. repeat at 7 days DIFLUCAN 100 1 tablet DIFLUCAN 785039 FLUCONAZOLE Inactive MG TAB by mouth 100 MG TAB daily POTASSIUM 1 capsule POTASSIUM POTASSIUM Inactive CHLORIDE CR by mouth CHLORIDE CR CHLORIDE 10 MEQ CPCR daily 10 MEQ CPCR FLUCONAZOLE one p.o. FLUCONAZOLE 853905 FLUCONAZOLE Inactive 100 MG TABS q. day 2 100 MG TABS days TRAMADOL HCL 1 po tid TRAMADOL 410791 TRAMADOL HCL Inactive 50 MG TABS with ES HCL 50 MG Tylenol TABS NECON 1 po NECON NORETHINDRONE- Inactive (28) 1-35 daily () - ETH ESTRADIOL MG-MCG TABS MG-MCG TABS CIPRO 500 MG 1 tablet CIPRO 500 678643 CIPROFLOXACIN Inactive TAB by mouth MG TAB HCL twice daily ADIPEX-P 1/2 tab ADIPEX-P 714144 PHENTERMINE Inactive 37.5 MG CAPS po q am 37.5 MG HCL for CAPS weight loss ABILIFY 2 MG 1 po q hs ABILIFY 2 227518 ARIPIPRAZOLE Inactive TABS for major MG TABS depressio n HYDROCHLOROT 2 tabs HYDROCHLORO 508023 HYDROCHLOROTHI Inactive HIAZIDE 25 every THIAZIDE 25 AZIDE MG TABS morning MG TABS ABILIFY 5 MG one p.o. ABILIFY 5 025287 ARIPIPRAZOLE Inactive TABS q. day MG TABS CIPROFLOXACI Take one CIPROFLOXAC 922071 CIPROFLOXACIN Inactive N HCL 500 MG (1) IN HCL 500 HCL TABS tablet by MG TABS mouth twice a day PROMETHAZINE 1 tab by PROMETHAZIN 017677 PROMETHAZINE Inactive HCL 25 MG mouth E HCL 25 MG HCL TABS every 6 TABS hours as needed PHENTERMINE 1 po q am PHENTERMINE 219888 PHENTERMINE Inactive HCL 37.5 MG for wt. HCL 37.5 MG HCL TABS loss TABS AMARYL 1 MG 1 tab AMARYL 1 MG 19910808 GLIMEPIRIDE Inactive TABS twice TABS daily METFORMIN 1 tablet METFORMIN 417353 METFORMIN HCL Inactive HCL 500 MG by mouth HCL 500 MG TABS twice TABS daily SPIRONOLACTO 1 tablet SPIRONOLACT 047958 SPIRONOLACTONE Inactive NE 25 MG TAB by mouth ONE 25 MG daily TAB POTASSIUM 2 capsule POTASSIUM POTASSIUM Inactive CHLORIDE CR by mouth CHLORIDE CR CHLORIDE 10 MEQ CPCR daily 10 MEQ CPCR LISINOPRIL 1 tablet LISINOPRIL 829438 LISINOPRIL Inactive 20 MG TABS by mouth 20 MG TABS daily DIFLUCAN 100 1 tablet DIFLUCAN 062873 FLUCONAZOLE Inactive MG TABS by mouth 100 MG TABS every other day for 2 doses DIFLUCAN 100 1 tablet DIFLUCAN 021535 FLUCONAZOLE Inactive MG TAB by mouth 100 MG TAB daily x 3 days PREDNISONE 2 tablets PREDNISONE 608030 PREDNISONE Inactive 20 MG TAB today, 20 MG TAB then 1 tablet days 2-4 VYVANSE 20 1 tablet VYVANSE 20 LISDEXAMFETAMI Inactive MG ORAL CAPS daily for MG ORAL NE DIMESYLATE binge CAPS eating disorder TRAMADOL HCL 1/2 po TRAMADOL 538693 TRAMADOL HCL Inactive 50 MG TABS tid [...] TB24 daily AMOXICILLIN 2 po BID AMOXICILLIN 755901 AMOXICILLIN Inactive 500 MG CAPS x 10 days 500 MG CAPS PREDNISONE 2 tabs PREDNISONE 977616 PREDNISONE Inactive 20 MG TAB daily for 20 MG TAB 3 days, 1 tab daily for 3 days, 1/2 tab daily for 2 days NITROFURANTO One NITROFURANT 6458062 NITROFURANTOIN Inactive IN MONOHYD capsule OIN MONOHYD MONOHYD MACRO MACRO 100 MG BID for MACRO 100 CAPS UTI MG CAPS PREDNISONE 2 pills PREDNISONE 533536 PREDNISONE Inactive 20 MG TAB daily x 4 20 MG TAB days AZITHROMYCIN 2 po qd x AZITHROMYCI 2738874 AZITHROMYCIN Inactive 250 MG TABS 1 day, N 250 MG then 1 po TABS qd x 4 days CIPRO 250 MG 1 tablet CIPRO 250 524176 CIPROFLOXACIN Inactive TAB by mouth MG TAB [...] HGBA1C - Chemistry sodium, serum 140 mmol/L 172-813 4668/06/03 potassium, serum 3.9 mmol/L 3.5-5.2 chloride, serum [...] 214 10^3/MM^3 10*3/mm3 142-424 Lab Report: Chlamydia/GC APTIMA/[id number] - Lab chlamydia DNA probe NOT DETECTED NOT DETECTED Lab Report: Chlamydia/GC APTIMA/[id number] - Microbiology Neisseria gonorrhoeae DNA probe NOT DETECTED NOT DETECTED Lab Report: Lipid Panel - Chemistry cholesterol, serum 157 mg/dL 125-459 2238/08/22 triglyceride, serum, fasting 215 mg/dL 30-200 HDL [...] mg/dL Encounters Code Encounter Date Provider Facility CPT-63872 Level 4 New Patient Yury Benoit MD [facility] 15:17:12 CDT CPT-63412 Level 3 Est. Patient [facility] - 13:37:46 CDT [place] CPT-85743 Level 4 Est. Patient [facility] - 10:01:06 CDT [place] CPT-77629 Level 3 Est. Patient [facility] 08:58:07 CDT PERFORMANCE TEST CONSULTANT CPT-24547 Level 3 Est. Patient Faby Marino [facility] 14:40:56 CDT [facility] CPT-14772 Level 4 Est. Patient [facility] 17:29:53 NOC ANALYST [facility] CPT-71302 Level 4 Est. Patient [facility] 09:51:54 NOC ANALYST CPT-75958 Level 3 Est. Patient [facility] 18:59:38 CDT CPT-54840 Level 3 Est. Patient Joseph Edwin [facility] 14:42:12 CDT -[facility] CPT-84420 Level 3 Est. Patient Joseph Pineda [facility] 22:18:20 CDT -[facility] CPT-77572 Level 3 Est. Patient Jospeh Pineda [facility] 16:46:04 CDT -[facility] CPT-27824 Level 3 Est. Patient Joseph Edwin [facility] 15:39:53 CDT -[facility] CPT-27417 Level 3 Est. Patient Maite Sanchez MD [facility] 13:33:34 CDT -[facility] CPT-81147 Level 3 Est. Patient Joseph Edwin [facility] 11:37:08 CDT -[facility] CPT-68422 Level 3 Est. Patient [place] [facility] 17:13:29 NOC ANALYST -[facility] CPT-25240 Level 3 Est. Patient Joseph Edwin [facility] 18:42:44 CDT CPT-30505 Level 3 Est. Patient [place] [facility] 16:25:39 CDT CPT-91876 Level 3 Est. Patient Casey Brower [facility] 09:52:45 CDT -[facility] CPT-88653 Level 3 Est. Patient Joseph Pineda [facility] 11:03:29 NOC ANALYST -[facility] CPT-02865 Level 3 Est. Patient Joseph Edwin [facility] 11:03:08 NOC ANALYST -[facility] CPT-17933 Level 3 Est. Patient Joseph Edwin [facility] 14:33:31 CDT -[facility] CPT-47938 Level 3 Est. Patient Joseph Edwin [facility] 17:05:02 NOC ANALYST -[facility] CPT-73031 Level 3 Est. Patient [facility] 17:48:06 NOC ANALYST -[facility] CPT-86653 Level 3 Est. Patient Joseph Trivedi [facility] 14:59:22 NOC ANALYST -C CPT-93773 Level 3 Est. Patient Joseph Trivedi [facility] - 21:45:56 NOC ANALYST [place] [facility] CPT-05752 Level 3 Est. Patient Joseph Trivedi [facility] 21:29:50 CDT -[facility] CPT-26918 Level 3 Est. Patient Joseph Trivedi [facility] 12:41:09 CDT -[facility] Procedures Code Procedure Name Date Entry Date Standard Description CPT-28337 Wet Mount - LAB USE ONLY 12:39:03 NOC ANALYST CPT-51136 Vaginal Culture - LAB USE ONLY 12:39:03 NOC ANALYST CPT-16814 Urine Culture - LAB USE ONLY 11:52:44 NOC ANALYST CPT-26876 UA w micro - LAB USE ONLY 11:52:44 NOC ANALYST CPT-38023 Postop F/U Visit 12:08:35 CDT CPT-66385 Postop F/U Visit 18:20:10 CDT CPT-A4351 [facility] Female Cath 09:37:10 CDT CPT-29096 Urine Dip (Floor Use Only) 15:17:13 CDT CPT-00482 Dil F ureth int 15:17:13 CDT CPT-14930 Venipuncture Draw Fee 09:19:08 CDT CPT-81884 Lipid - LAB USE ONLY 09:19:07 CDT CPT-JTINJ Asp/Joint Injection 09:26:49 CDT CPT-67270 Chest 2V Frontal and Lat 14:47:43 CDT CPT-JTINJ Asp/Joint Injection 09:51:53 NOC ANALYST CPT-OV Office Visit 17:39:05 CDT CPT-OV Office Visit 15:19:50 CDT CPT-94106 Sono transvag pelvis non OB uterus ovaries cervix 18:04:34 CDT CPT-89182 Venipuncture Draw Fee 08:55:49 NOC ANALYST
--- OUTSIDE RECORDS SUMMARY | 2016-11-20 13:36 | External Medical Summary | Clinical Summary ---
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 NKDA Critical Inactive Adrianna Elder Conditions [...] 464.00 Resolved [facility] of obstruction Binge eating 307.51 Active Joseph Pineda Bulimia nervosa disorder 08/15 08/15 Farooq DO Routine V72.31 Active Jillina Routine gynecological 12/14 12/14 [place] gynecological examination [employer]ECT examination Postmenopausal 627.1 Active Jillina Postmenopausal bleeding 12/14 12/14 [place] bleeding [employer] ARCH[employer]ECT Screening for V76.51 Active Ismael Coyne Screening for malignant 12/26 12/26 Amandeep malignant neoplasms of MD neoplasms of colon colon Insomnia, 307.42 Active Indigo 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 [employer] ARCHITECT disorder of initiating or maintaining sleep Establish care V68.89 Active Indigo Encounters for or get 01/16 01/18 Yokum [employer] ARCHITECT other specified acquainted administrative visit purpose ABNORMAL [...] Instruction JANUVIA 100 1 tablet by SITAGLIPTIN 24642262255 Active Indigo Active MG TABS mouth daily PHOSPHATE [place] [employer]APE ARCHITECT METFORMIN 2 tablets METFORMIN HCL 34937193016 Active Indigo Active HCL 500 MG by mouth [place] TB24 twice daily [employer]IOR [employer]APE ARCHITECT TRAMADOL HCL 1/2 po tid 2 TRAMADOL HCL 28746980302 No Jillina Active 50 MG TABS with ES 0 Longer [place] Tylenol prn 1 Active [employer]IOR [employer]APE ARCH[employer]ECT pain 5 / 0 2 VYVANSE 20 1 tablet 2 LISDEXAMFETAMIN 12570246892 No Jillina Active MG ORAL CAPS daily for 0 E DIMESYLATE Longer [place] binge 1 Active [employer]IOR [employer]APE ARCHITECT eating 5 disorder / 0 2 LASIX 20 MG 2 tablet by FUROSEMIDE 53859596886 Active Joseph W Active TAB mouth daily Farooq DO CELEBREX 200 1 tablet by CELECOXIB 03472168173 Active Joseph W Active MG CAPS mouth daily Farooq DO with meals PREDNISONE 2 tablets 2 PREDNISONE 94508530788 No Joseph W Active 20 MG TAB today, then 0 Longer Farooq DO 1 tablet 1 Active days 2-4 5 / 0 4 / 3 DIFLUCAN 100 1 tablet by 2 FLUCONAZOLE 23100566454 No Joseph W Active MG TAB mouth daily 0 Longer Farooq DO x 3 days 1 Active 5 / 0 4 / 3 AMARYL 1 MG 1 tablet GLIMEPIRIDE 17068919629 Active Joseph W Active ORAL TABS orally Farooq DO twice daily DIFLUCAN 100 1 tablet by 2 FLUCONAZOLE 27980676709 No Joseph W Active MG TABS mouth every 0 Longer Farooq DO other day 1 Active for 2 doses 5 / 0 1 / 2 3 ZOFRAN 4 MG 1 po q6hr ONDANSETRON HCL 53084850429 Active Joseph Pineda Active TABS PRN Nausea Farooq DO PREDNISONE 2 tabs 2 PREDNISONE 54938443600 No Joseph W Active 20 MG TAB daily for 3 0 Longer Farooq DO days, 1 tab 1 Active daily for 3 4 days, 1/2 / tab daily 1 for 2 days 0 / 2 5 AMOXICILLIN 2 po BID x 2 AMOXICILLIN 81277726213 No Maite C Active 500 MG CAPS 10 days 0 Longer Madril 1 Active PhD 0 / 2 0 LISINOPRIL 1 tablet by 2 LISINOPRIL 35393092766 No Maite C Active 20 MG TABS mouth 0 Longer Madril daily 1 Active PhD 0 0 POTASSIUM 2 capsule 2 POTASSIUM 56321280387 No Joseph Pineda Active CHLORIDE CR by mouth 0 CHLORIDE Longer 10 MEQ CPCR daily 1 Active 4 / 0 8 / 2 9 SPIRONOLACTO 1 tablet by 2 SPIRONOLACTONE 37811670793 No Joseph Pineda Active NE 25 MG TAB mouth daily 0 Longer Farooq 1 Active 4 / 0 8 / 2 9 METFORMIN 1 tablet 2 METFORMIN HCL 16848323307 No Joseph Pineda Active HCL 500 MG by mouth 0 Longer [facility] TABS twice daily 1 Active 4 / 0 8 / 2 9 AMARYL 1 MG 1 tab twice 2 GLIMEPIRIDE 14853613157 No Joseph Pineda Active TABS daily 0 Longer Farooq 1 Active 4 / 0 8 / 2 9 PHENTERMINE 1 po q am 2 PHENTERMINE HCL 93486277607 No Joseph Pineda Active HCL 37.5 MG for wt. 0 Longer Farooq DO TABS loss 1 Active 3 / 1 2 / 2 3 PROMETHAZINE 1 tab by 2 PROMETHAZINE 36362384372 No Joseph W Active HCL 25 MG mouth every 0 HCL Longer [facility] TABS 6 hours as 1 Active needed 3 / 0 9 / 0 9 CIPROFLOXACI Take one 2 CIPROFLOXACIN 19030831867 No Joseph W Active N HCL 500 MG (1) tablet 0 HCL Longer Farooq DO TABS by mouth 1 Active twice a day 3 / 0 9 / 0 9 ABILIFY 5 MG one p.o. q. 2 ARIPIPRAZOLE 03304224293 No Joseph W Active TABS day 0 Longer Farooq DO 1 Active 3 / 0 9 / 0 9 HYDROCHLOROT 2 tabs 2 HYDROCHLOROTHIA 30497565045 No Joseph W Active HIAZIDE 25 every 0 ZIDE Longer Farooq DO MG TABS morning 1 Active 3 / 0 6 / 2 7 ABILIFY 2 MG 1 po q hs 2 ARIPIPRAZOLE 86202862388 No Joseph W Active TABS for major 0 Longer Farooq depression 1 Active 3 / 0 5 / 0 7 ADIPEX-P 1/2 tab po 2 PHENTERMINE HCL 94958772546 No Casey Active 37.5 MG CAPS q am for 0 Longer [place] weight loss 1 Active PA 3 / 0 5 / 0 1 CIPRO 500 MG 1 tablet by 2 CIPROFLOXACIN 15304917397 No Casey Active TAB mouth twice 0 HCL Longer [place] daily 1 Active PA 3 / 0 5 / 0 1 NECON 35 1 po daily 2 NORETHINDRONE-E 18949929344 No Casey Active () -35 0 ESTRADIOL Longer [place] MG-MCG TABS 1 Active PA 3 / 0 5 / 0 1 TRAMADOL HCL 1 po tid 2 TRAMADOL HCL 43788282392 No Casey Active 50 MG TABS with ES 0 Longer [place] Tylenol 1 Active PA 3 / 0 5 / 0 1 FLUCONAZOLE one p.o. q. 2 FLUCONAZOLE 35262037063 No Casey Active 100 MG TABS day 2 days 0 Longer [place] 1 Active PA 3 / 0 5 / 0 1 POTASSIUM 1 capsule 2 POTASSIUM 24503589432 No Casey Active CHLORIDE CR by mouth 0 CHLORIDE Longer 10 MEQ CPCR daily 1 Active PA 3 / 0 5 / 0 1 IMIPRAMINE Take 6 IMIPRAMINE HCL 69330847534 Active Joseph W Active HCL 50 MG tablets by [facility] TABS mouth at bedtime DIFLUCAN 100 1 tablet by 2 FLUCONAZOLE 76746385315 No Joseph W Active MG TAB mouth daily 0 Longer Farooq DO 1 Active 2 / 0 2 / 2 4 METOPROLOL 1/2 tab po METOPROLOL 91276038442 Active Joseph W Active TARTRATE 25 bid TARTRATE Farooq DO MG TABS VERAPAMIL 2 po bid VERAPAMIL HCL 91057948063 Active Joseph W Active HCL CR 120 Farooq DO MG TAB CR PERMETHRIN 5 apply neck 2 PERMETHRIN 80148572101 No Joseph W Active % CREA to toes 0 Longer Farooq DO tonight and 1 Active then rinse 2 off in / morning. 0 repeat at 7 1 days / 2 0 SEROQUEL XR one p.o. q. 2 QUETIAPINE 42635823136 No Joseph W Active 50 MG evening 0 FUMARATE Longer Farooq DO [id number] 1 Active 2 / 0 1 / 2 0 TRAMADOL HCL 1-2 tablets 2 TRAMADOL HCL 94270612638 No Joseph W Active 50 MG TABS every 6-8 0 Longer Farooq DO hours as 1 Active needed for 2 pain / 0 1 / 2 0 ALPRAZOLAM 3 one p.o. ALPRAZOLAM 88911397846 Active Joseph W Active MG [id number] q.h.s. Farooq DO ALPRAZOLAM Take 1 2 ALPRAZOLAM 41546951051 No Joseph W Active XR [id number] tablet by 0 [id number] Longer Farooq DO mouth at 1 Active bedtime 1 / 2 9 DIFLUCAN 100 1 tablet by 2 FLUCONAZOLE 25584338750 No Joseph W Active MG TAB mouth daily 0 Longer Farooq DO 1 Active 0 / 0 6 AMBIEN 10 MG 1 tab by ZOLPIDEM 88325287447 Active Joseph W Active TAB mouth at TARTRATE Farooq DO bedtime as needed for sleep DIFLUCAN 100 1 tablet DIFLUCAN 329161 FLUCONAZOLE Inactive MG TAB by mouth 100 MG TAB daily ALPRAZOLAM Take 1 ALPRAZOLAM ALPRAZOLAM Inactive XR [id number] tablet by XR [id number] mouth at [id number] bedtime TRAMADOL HCL 1-2 TRAMADOL 416121 TRAMADOL HCL Inactive 50 MG TABS tablets HCL 50 MG every 6-8 TABS hours as needed for pain SEROQUEL XR one p.o. SEROQUEL XR QUETIAPINE Inactive 50 MG q. evening 50 MG FUMARATE [id number] PERMETHRIN 5 apply neck PERMETHRIN 587302 PERMETHRIN Inactive % CREA to toes 5 % CREA tonight and then rinse off in morning. repeat at 7 days DIFLUCAN 100 1 tablet DIFLUCAN 791826 FLUCONAZOLE Inactive MG TAB by mouth 100 MG TAB daily POTASSIUM 1 capsule POTASSIUM POTASSIUM Inactive CHLORIDE CR by mouth CHLORIDE CR CHLORIDE 10 MEQ CPCR daily 10 MEQ CPCR FLUCONAZOLE one p.o. FLUCONAZOLE 19760111 FLUCONAZOLE Inactive 100 MG TABS q. day 2 100 MG TABS days TRAMADOL HCL 1 po tid TRAMADOL 292380 TRAMADOL HCL Inactive 50 MG TABS with ES HCL 50 MG Tylenol TABS NECON 1/35 1 po daily NECON 1/35 NORETHINDRONE- Inactive (28) 1-35 (28) 1-35 ETH ESTRADIOL MG-MCG TABS MG-MCG TABS CIPRO 500 MG 1 tablet CIPRO 500 337004 CIPROFLOXACIN Inactive TAB by mouth MG TAB HCL twice daily ADIPEX-P 1/2 tab po ADIPEX-P 951500 PHENTERMINE Inactive 37.5 MG CAPS q am for 37.5 MG HCL weight CAPS loss ABILIFY 2 MG 1 po q hs ABILIFY 2 339415 ARIPIPRAZOLE Inactive TABS for major MG TABS depression HYDROCHLOROT 2 tabs HYDROCHLORO 383168 HYDROCHLOROTHI Inactive HIAZIDE 25 every THIAZIDE 25 AZIDE MG TABS morning MG TABS ABILIFY 5 MG one p.o. ABILIFY 5 467204 ARIPIPRAZOLE Inactive TABS q. day MG TABS CIPROFLOXACI Take one CIPROFLOXAC 111177 CIPROFLOXACIN Inactive N HCL 500 MG (1) tablet IN HCL 500 HCL TABS by mouth MG TABS twice a day PROMETHAZINE 1 tab by PROMETHAZIN 073926 PROMETHAZINE Inactive HCL 25 MG mouth E HCL 25 MG HCL TABS every 6 TABS hours as needed PHENTERMINE 1 po q am PHENTERMINE 327903 PHENTERMINE Inactive HCL 37.5 MG for wt. HCL 37.5 MG HCL TABS loss TABS AMARYL 1 MG 1 tab AMARYL 1 MG 456020 GLIMEPIRIDE Inactive TABS twice TABS daily METFORMIN 1 tablet METFORMIN 833914 METFORMIN HCL Inactive HCL 500 MG by mouth HCL 500 MG TABS twice TABS daily SPIRONOLACTO 1 tablet SPIRONOLACT 329095 SPIRONOLACTONE Inactive NE 25 MG TAB by mouth ONE 25 MG daily TAB POTASSIUM 2 capsule POTASSIUM POTASSIUM Inactive CHLORIDE CR by mouth CHLORIDE CR CHLORIDE 10 MEQ CPCR daily 10 MEQ CPCR LISINOPRIL 1 tablet LISINOPRIL 602834 LISINOPRIL Inactive 20 MG TABS by mouth 20 MG TABS daily DIFLUCAN 100 1 tablet DIFLUCAN 374523 FLUCONAZOLE Inactive MG TABS by mouth 100 MG TABS every other day for 2 doses DIFLUCAN 100 1 tablet DIFLUCAN 185758 FLUCONAZOLE Inactive MG TAB by mouth 100 MG TAB daily x 3 days PREDNISONE 2 tablets PREDNISONE 629425 PREDNISONE Inactive 20 MG TAB today, 20 MG TAB then 1 tablet days 2-4 VYVANSE 20 1 tablet VYVANSE 20 LISDEXAMFETAMI Inactive MG ORAL CAPS daily for MG ORAL NE DIMESYLATE binge CAPS eating disorder TRAMADOL HCL 1/2 po tid TRAMADOL 834097 TRAMADOL HCL Inactive 50 MG TABS with ES HCL 50 MG Tylenol TABS prn pain AMOXICILLIN 2 po BID x AMOXICILLIN 690639 AMOXICILLIN Inactive 500 MG CAPS 10 days 500 MG CAPS PREDNISONE 2 tabs PREDNISONE 484938 PREDNISONE Inactive 20 MG TAB daily for [...] HGBA1C - Chemistry sodium, serum 140 mmol/L 406-558 0045/04/13 potassium, serum 3.9 mmol/L 3.5-5.2 chloride, serum [...] 4.3-6.0 Lab Report: CBC, Comp. Metabolic Panel, [facility] - Hematology leukocyte count, blood 7.0 10^3/MM^3 [...] 219 10^3/MM^3 10*3/mm3 142-424 Lab Report: CBC, [facility] - Chemistry hemoglobin A1C, blood, [...] 198 10^3/MM^3 10*3/mm3 142-424 Lab Report: Chlamydia/GC APTIMA/[id number] - Lab chlamydia DNA probe NOT DETECTED NOT DETECTED Lab Report: Chlamydia/GC APTIMA/[id number] - Microbiology Neisseria gonorrhoeae DNA probe NOT DETECTED NOT DETECTED Lab Report: Comp. Metabolic Panel, Lipid Panel - Chemistry sodium, serum 136 mmol/L 921-481 8213/01/04 carbon dioxide, venous blood 27.0 mmol/L 21.0-32.0 potassium, serum 4.6 mmol/L 3.5-5.2 chloride, serum 98 mmol/L 98-107 blood glucose 174 mg/dL 65-110 urea nitrogen, blood 12 mg/dL 7-18 creatinine, serum 0.78 mg/dL 0.55-1.30 alanine aminotransferase (SGPT), serum 65 U/L 12-78 aspartate aminotransferase (SGOT), serum 34 U/L 15-37 calcium, serum 8.9 mg/dL 8.5-10.1 bilirubin, serum, total 0.40 mg/dL 0.00-1.00 cholesterol, serum 219 mg/dL 462-626 7418/01/04 triglyceride, serum, fasting 214 mg/dL 30-200 HDL [...] mg/g mg/g{creat} 0-29 sodium, serum 140 mmol/L 838-728 6647/07/21 potassium, serum 3.9 mmol/L 3.5-5.2 chloride, serum [...] 142-424 Encounters Code Encounter Date Provider Facility CPT-71472 Level 3 Est. Patient Indigo Sexton ALEJANDRO [facility] 18:59:38 CDT CPT-24386 Level 3 Est. Patient Joseph Pineda [facility] 14:42:12 CDT -[facility] CPT-77413 Level 3 Est. Patient Joseph Pineda [facility] 22:18:20 CDT -[facility] CPT-14466 Level 3 Est. Patient Joseph Pineda [facility] 16:46:04 CDT -[facility] CPT-09037 Level 3 Est. Patient Joseph Trivedi [facility] 15:39:53 CDT -RHC CPT-05599 Level 3 Est. Patient Maite Sanchez MD PhD [facility] 13:33:34 CDT -RHC CPT-00238 Level 3 Est. Patient Joseph Pineda [facility] 11:37:08 CDT -[facility] CPT-10849 Level 3 Est. Patient Joseph Pineda [facility] 17:13:29 [employer] -[facility] CPT-06950 Level 3 Est. Patient Joseph Edwin [facility] 18:42:44 CDT CPT-27043 Level 3 Est. Patient Joseph Edwin [facility] 16:25:39 CDT CPT-93053 Level 3 Est. Patient Casey Garzaner [facility] 09:52:45 CDT -RHC CPT-03611 Level 3 Est. Patient Joseph Edwin [facility] 11:03:29 [employer] -[facility] CPT-54342 Level 3 Est. Patient Stuart Edwin [facility] 11:03:08 [employer] -[facility] CPT-73385 Level 3 Est. Patient [facility] 14:33:31 CDT -RHC CPT-37198 Level 3 Est. Patient [facility] 17:05:02 [employer] -[facility]HC CPT-64577 Level 3 Est. Patient [facility] 17:48:06 [employer] -[facility]HC CPT-70907 Level 3 Est. Patient [facility] 14:59:22 [employer] -[facility]HC CPT-30197 Level 3 Est. Patient [facility] - 21:45:56 [employer] [place] [facility] CPT-09987 Level 3 Est. Patient [facility] 21:29:50 CDT -RHC CPT-77044 Level 3 Est. Patient [facility] 12:41:09 CDT -RHC Procedures Code Procedure Name Date Entry Date Standard Description CPT-OV Office Visit 17:39:05 CDT CPT-OV Office Visit 15:19:50 CDT CPT-66842 Sono transvag pelvis non OB uterus ovaries cervix 18:04:34 CDT CPT-73987 Venipuncture Draw Fee 08:55:49 [employer]
--- OUTSIDE RECORDS SUMMARY | 2016-11-20 13:37 | External Medical Summary | Clinical Summary ---
:1965 Author Organization [facility] [employer] Address [address] [address] Phone Allergies, Adverse Reactions, Alerts Allergy Name Reaction Description Start Date Severity Status Provider VERSED States jsut about Critical Active Gloria Saavedra NIGHT CLERK AUDITOR killed her NKDA Critical Active Indigo Yokum [employer]EL[employer] NKDA Critical No Longer Indigo Yokum [employer] Active NKDA Critical Inactive Adrianna Elder Conditions [...] Resolved Indigo Other malaise 05/24 07/02 Yokum [employer] and fatigue SLEEP APNEA, 327.23 Active Joseph Pineda Obstructive OBSTRUCTIVE, 06/27 06/27 Farooq DO sleep apnea MILD (adult) (pediatric) OVERWEIGHT 278.02 Inactive Joseph Pineda Overweight 06/28 06/28 Farooq DO Obesity 278.00 Active Indigo Obesity, 06/28 10/18 Yokum [employer] G[employer] unspecified OTH GENERAL V70.3 Resolved Maite Gutierrez Other general MEDICAL Laura ONEAL medical EXAMINATION PhD examination for ADMIN administrative PURPOSES purposes OTHER 790.29 Resolved Maite C Other abnormal ABNORMAL 05/20 Laura ONEAL glucose GLUCOSE PhD ACUTE 466.0 Resolved Maite Gutierrez Acute bronchitis BRONCHITIS 09/02 Laura ONEAL PhD DEPENDENT 782.3 Resolved Indigo Edema EDEMA, LEGS, 10/29 10/18 Yokum [employer] BILATERAL HYPOKALEMIA, 276.8 Resolved Indigo Hypopotassemia MILD 10/29 07/02 Yokum [employer] Diabetes, 250.00 Inactive Joseph Pineda Diabetes Type 2 06/27 06/27 Farooq DO mellitus without mention of complication, type II or unspecified type, not stated as uncontrolled Diabetes 250.02 Resolved Indigo Diabetes mellitus, 06/27 10/18 Yokum [employer] mellitus without type II, mention of uncontrolled [...] Resolved Indigo Routine gynecological 12/14 07/02 Yokum [employer] gynecological examination examination Postmenopausa 627.1 Resolved Indigo Postmenopausal l bleeding 12/14 07/02 Yokum [employer] bleeding Screening for V76.51 Resolved Indigo Screening for malignant 12/26 07/02 Yokum [employer] malignant neoplasms of neoplasms of colon colon Insomnia, 307.42 Active Indigo 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 initiating or maintaining sleep Establish V68.89 Resolved Indigo Encounters for care or get 01/16 07/02 Yokum [employer] other specified acquainted administrative visit purpose Weakness, 342.90 Resolved Indigo Hemiplegia, left side of 06/20 10/18 Yokum [employer] unspecified, body affecting unspecified side TIA 435.9 Active Indigo Unspecified 06/20 07/02 Yokum [employer] transient cerebral ischemia Knee pain, 719.46 Active Indigo Pain in joint bilateral 06/20 10/18 Yokum W[employer] involving lower leg Bronchitis 490 Resolved Indigo Bronchitis, not 07/23 10/18 Yokum WEL[employer] G[employer] T[employer] specified as acute or chronic Diabetes 357.2 Active Maliheh Polyneuropathy mellitus, 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 SUPERVISOR HARVESTING 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 y Knee pain, 719.46 Active Indigo Pain in joint right 06/20 10/18 Yokum [employer] involving lower leg Jesi 112.3 Active Indigo Candidiasis of intertrigo 10/09 10/18 Yokum W[employer] G[employer] skin and nails Hyperlipidemi 272.4 Active Anne Other and a 12/24 12/24 Neil unspecified RMA hyperlipidemia Incontinence, 788.33 Active Indigo Mixed mixed, 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 W[employer] incontinence urge/stress (female) (male) Female stress 625.6 Active Yury Monaco Stress incontinence 01/03 01/03 Cy patel MD female Vaginal odor 623.8 Active Gloria Other specified 05/28 05/28 Naff NIGHT CLERK AUDITOR noninflammatory disorders of vagina Urinary tract 599.0 Active Indigo Urinary tract infection 05/28 05/28 Yok W[employer] G[employer] T[employer] infection, site not specified Urine odor 791.9 Active Indigo Other 05/28 06/26 Yokum WEL[employer] G[employer] nonspecific findings on examination of urine ABNORMAL VAGINAL ICD-626.9 Inactive Maite Sanchez BLEEDING PhD SCABIES ICD-133.0 Inactive Maite Sanchez PhD FATIGUE ICD-780.79 Inactive Indigo Yokum [employer] OTH GENERAL ICD-V70.3 Inactive Maite Sanchez MEDICAL PhD EXAMINATION ADMIN PURPOSES OTHER ABNORMAL ICD-790.29 Inactive Maite Sanchez GLUCOSE MD PhD ACUTE BRONCHITIS ICD-466.0 Inactive Maite Sanchez PhD DEPENDENT EDEMA, ICD-782.3 Inactive Indigo Yokum LEGS, BILATERAL WELDER G[employer] T[employer]C HYPOKALEMIA, MILD ICD-276.8 Inactive Indigo Yokum [employer] Diabetes mellitus, ICD-250.02 Inactive Indigo Yokum type II, WELDER G[employer] T[employer]GST[employer] ARC uncontrolled Sinusitis, ICD-461.1 Inactive Ismael Coyne frontal, acute Amandeep ONEAL Laryngitis, acute ICD-464.00 Inactive Ismael Coyne Amandeep ONEAL Routine ICD-V72.31 Inactive Indigo Yokum gynecological W[employer] G[employer] T[employer] examination Postmenopausal ICD-627.1 Inactive Indigo Yokum 2015 bleeding WELDER G[employer] T[employer]GST[employer] ARC Screening for ICD-V76.51 Inactive Indigo Yokum 2015 malignant WELDER G[employer] T[employer] neoplasms of colon Establish care or ICD-V68.89 Inactive Indigo Yokum get acquainted WELDER G[employer] TUNGST[employer]C visit Weakness, left ICD-342.90 Inactive Indigo Yokum side of body WELDER GAS TUNGSTEN ARC Bronchitis ICD-490 Inactive Indigo Yokum WELDER GAS TUNGSTEN ARC Medication List Medication Instructions Start Stop Generic NDC Status Provider Patient Date Date Name Instruction REGINALDRE 5 1 tablet SOLIFENACIN 15355278568 Active J Carlos Enrique Active MG TABS daily SUCCINATE Cy ONEAL CIPRO 250 MG 1 tablet 2 CIPROFLOXACIN 90154706388 No Indigo Active TAB by mouth 0 HCL Longer Yokum twice 1 Active WELDER GAS TUNGSTEN ARC daily 7 METFORMIN 2 tablets 2 METFORMIN HCL 76411542981 No Indigo Active HCL 500 MG by mouth 0 Longer Yokum TB24 twice 1 Active WELDER GAS TUNGSTEN ARC daily 2 AMARYL 1 MG 1 tablet 2 GLIMEPIRIDE 09719619023 No Indigo Active ORAL TABS orally 0 Longer Yokum twice 1 Active WELDER GAS TUNGSTEN ARC daily 2 NYSTATIN apply to NYSTATIN 08811255098 Active Indigo Active 505942 rash TID Yokum UNIT/GM CREA PRN WELDER GAS TUNGSTEN ARC TROKENDI XR 2 tab TOPIRAMATE 03757626780 Active Maliheh Active 100 MG ORAL daily Ziglari [id number] SUPERVISOR HARVESTING METOPROLOL 1 tab po METOPROLOL 32089797768 Active Indigo Active TARTRATE 25 bid TARTRATE Yokum MG TABS WELDER GAS TUNGSTEN ARC AZITHROMYCIN 2 po qd x 2 AZITHROMYCIN 06813478228 No Jillina Active 250 MG TABS 1 day, 0 Longer Frazell then 1 po 1 Active WELDER GAS TUNGSTEN ARC qd x 4 6 days / 0 3 / 2 6 PREDNISONE 2 pills 2 PREDNISONE 57486983900 No Jillina Active 20 MG TAB daily x 4 0 Longer Frazell days 1 Active WELDER GAS TUNGSTEN ARC 6 / 0 3 / 2 5 PIOGLITAZONE take one a PIOGLITAZONE 78761135879 Active Maliheh Active HCL 30 MG day HCL Ziglari ORAL TABS SUPERVISOR HARVESTING JANUVIA 100 1 tablet 2 SITAGLIPTIN 25510116292 No Indigo Active MG TABS by mouth 0 PHOSPHATE Longer Yokum daily 1 Active WELDER GAS TUNGSTEN ARC 6 / 0 2 / 1 6 ATORVASTATIN 1 pill by ATORVASTATIN 40853859674 Active Indigo Active CALCIUM 10 mouth CALCIUM Yokum MG TABS nightly, WELDER G[employer] T[employer]GST[employer] ARC for cholestero l ASPIRIN 81 1 po qd ASPIRIN 57840533971 Active Indigo Active MG ORAL TABS Yokum WELDER GAS TUNGSTEN ARC NITROFURANTO One 2 NITROFURANTOIN 86999003654 No Indigo Active IN MONOHYD capsule 0 MONOHYD MACRO Longer Yokum MACRO 100 MG BID for 1 Active WELDER GAS TUNGSTEN ARC CAPS UTI 6 / 0 / 3 TRAMADOL HCL 1/2 po tid 2 TRAMADOL HCL 54595730669 No Jillina Active 50 MG TABS with ES 0 Longer Frazell Tylenol 1 Active WELDER GAS TUNGSTEN ARC prn pain 5 / 0 2 VYVANSE 20 1 tablet 2 LISDEXAMFETAMIN 22534647607 No Jillina Active MG ORAL CAPS daily for 0 E DIMESYLATE Longer Frazell binge 1 Active WELDER G[employer] T[employer]GST[employer] ARC eating 5 disorder / 0 2 LASIX 20 MG 2 tablet FUROSEMIDE 32603218599 Active Indigo Active TAB by mouth Yokum daily WELDER GAS TUNGSTEN ARC CELEBREX 200 1 tablet CELECOXIB 53063363198 Active Indigo Active MG CAPS by mouth Yokum daily with WELDER GAS TUNGSTEN ARC meals PREDNISONE 2 tablets 2 PREDNISONE 81961332247 No Joseph W Active 20 MG TAB today, 0 Longer Farooq DO then 1 1 Active tablet 5 days 2-4 / 0 4 / 1 3 DIFLUCAN 100 1 tablet 2 FLUCONAZOLE 61842852010 No Joseph W Active MG TAB by mouth 0 Longer Farooq DO daily x 3 1 Active days 5 / 0 4 / 1 3 DIFLUCAN 100 1 tablet 2 FLUCONAZOLE 27403449481 No Joseph W Active MG TABS by mouth 0 Longer Farooq DO every 1 Active other day 5 for 2 / doses 0 1 / 2 3 ZOFRAN 4 MG 1 po q6hr ONDANSETRON HCL 12956592779 Active Joseph W Active TABS PRN Nausea Farooq DO PREDNISONE 2 tabs 2 PREDNISONE 76942448302 No Joseph W Active 20 MG TAB daily for 0 Longer Farooq DO 3 days, 1 1 Active tab daily 4 for 3 / days, 1/2 1 tab daily 0 for 2 days / 2 5 AMOXICILLIN 2 po BID x 2 AMOXICILLIN 34610431664 No Maite C Active 500 MG CAPS 10 days 0 Longer Laura ONEAL 1 Active PhD 0 / 2 0 LISINOPRIL 1 tablet 2 LISINOPRIL 29032455129 No Maite C Active 20 MG TABS by mouth 0 Longer Kimberlyl MD daily 1 Active PhD 0 / 0 POTASSIUM 2 capsule 2 POTASSIUM 86967073657 No Joseph W Active CHLORIDE CR by mouth 0 CHLORIDE Longer Farooq DO 10 MEQ CPCR daily 1 Active 4 / 0 8 / 2 9 SPIRONOLACTO 1 tablet 2 SPIRONOLACTONE 34266879339 No Joseph W Active NE 25 MG TAB by mouth 0 Longer Farooq DO daily 1 Active 4 / 0 8 2 9 METFORMIN 1 tablet 2 METFORMIN HCL 41111952766 No Joseph W Active HCL 500 MG by mouth 0 Longer Farooq DO TABS twice 1 Active daily 4 / 0 8 / 2 9 AMARYL 1 MG 1 tab 2 GLIMEPIRIDE 27810385453 No Joseph W Active TABS twice 0 Longer Farooq DO daily 1 Active 4 / 0 8 / 2 9 PHENTERMINE 1 po q am 2 PHENTERMINE HCL 54957130139 No Joseph W Active HCL 37.5 MG for wt. 0 Longer Farooq DO TABS loss 1 Active 3 / 1 2 / 2 3 PROMETHAZINE 1 tab by 2 PROMETHAZINE 10038661024 No Joseph W Active HCL 25 MG mouth 0 HCL Longer Farooq DO TABS every 6 1 Active hours as 3 needed / 0 9 / 0 9 CIPROFLOXACI Take one 2 CIPROFLOXACIN 81006278012 No Joseph W Active N HCL 500 MG (1) tablet 0 HCL Longer Farooq DO TABS by mouth 1 Active twice a 3 day / 0 9 / 0 9 ABILIFY 5 MG one p.o. 2 ARIPIPRAZOLE 50892479194 No Josehp W Active TABS q. day 0 Longer Farooq DO 1 Active 3 / 0 9 / 0 9 HYDROCHLOROT 2 tabs 2 HYDROCHLOROTHIA 28778575690 No Joseph W Active HIAZIDE 25 every 0 ZIDE Longer Farooq DO MG TABS morning 1 Active 3 / 0 6 / 2 7 ABILIFY 2 MG 1 po q hs 2 ARIPIPRAZOLE 19154112075 No Joseph W Active TABS for major 0 Longer [facility] depression 1 Active 3 / 0 5 / 0 7 ADIPEX-P 1/2 tab po 2 PHENTERMINE HCL 33892732057 No Casey Active 37.5 MG CAPS q am for 0 Longer [facility] weight 1 Active loss 3 / 0 5 / 0 1 CIPRO 500 MG 1 tablet 2 CIPROFLOXACIN 43252756311 No Casey Active TAB by mouth 0 HCL Longer [facility] twice 1 Active daily 3 / 0 5 / 0 1 NECON 1 po daily 2 NORETHINDRONE-E 95027863964 No Casey Active () - 0 ESTRADIOL Longer [facility] MG-MCG TABS 1 Active 3 / 0 5 / 0 1 TRAMADOL HCL 1 po tid 2 TRAMADOL HCL 38403720057 No Casey Active 50 MG TABS with ES 0 Longer [facility] Tylenol 1 Active 3 / 0 5 / 0 1 FLUCONAZOLE one p.o. 2 FLUCONAZOLE 36976620374 No Casey Active 100 MG TABS q. day 2 0 Longer [facility] days 1 Active 3 / 0 5 / 0 1 POTASSIUM 1 capsule 2 POTASSIUM 51566247869 No Casey Active CHLORIDE CR by mouth 0 CHLORIDE Longer [facility] 10 MEQ CPCR daily 1 Active 3 / 0 5 / 0 1 IMIPRAMINE Take 6 IMIPRAMINE HCL 64230012978 Active Indigo Active HCL 50 MG tablets by Yokum TABS mouth at WELDER GAS TUNGSTEN ARC bedtime DIFLUCAN 100 1 tablet 2 FLUCONAZOLE 97421731661 No Joseph W Active MG TAB by mouth 0 Longer [facility] daily 1 Active 2 / 0 2 / 2 4 VERAPAMIL 2 po bid VERAPAMIL HCL 54747888192 Active Indigo Active HCL CR 120 Yokum MG TAB CR WELDER GAS TUNGSTEN ARC PERMETHRIN 5 apply neck 2 PERMETHRIN 46275081178 No Joseph W Active % CREA to toes 0 Longer [facility] tonight 1 Active and then 2 rinse off / in 0 morning. 1 repeat at / 7 days 2 0 SEROQUEL XR one p.o. 2 QUETIAPINE 42186103275 No Joseph W Active 50 MG q. evening 0 FUMARATE Longer Farooq DO [id number] 1 Active 2 / 0 1 / 2 0 TRAMADOL HCL 1-2 2 TRAMADOL HCL 84506589036 No Joseph W Active 50 MG TABS tablets 0 Longer Farooq DO every 6-8 1 Active hours as 2 needed for / pain 0 1 / 2 0 ALPRAZOLAM 3 one p.o. ALPRAZOLAM 85277003862 Active Indigo Active MG [id number] q.h.s. Yokum WELDER GAS TUNGSTEN ARC ALPRAZOLAM Take 1 2 ALPRAZOLAM 85204244020 No Joseph W Active XR [id number] tablet by 0 [id number] Longer Farooq DO mouth at 1 Active bedtime 1 / 2 9 DIFLUCAN 100 1 tablet 2 FLUCONAZOLE 90485147380 No Joseph W Active MG TAB by mouth 0 Longer Farooq DO daily 1 Active 0 / 0 6 AMBIEN 10 MG 1 tab by ZOLPIDEM 64433385818 Active Indigo Active TAB mouth at TARTRATE Yokum bedtime as WELDER GAS TUNGSTEN ARC needed for sleep DIFLUCAN 100 1 tablet DIFLUCAN 154935 FLUCONAZOLE Inactive MG TAB by mouth 100 MG TAB daily ALPRAZOLAM Take 1 ALPRAZOLAM ALPRAZOLAM Inactive XR [id number] tablet by XR [id number] mouth at [id number] bedtime TRAMADOL HCL 1-2 TRAMADOL 247174 TRAMADOL HCL Inactive 50 MG TABS tablets HCL 50 MG every 6-8 TABS hours as needed for pain SEROQUEL XR one p.o. SEROQUEL XR QUETIAPINE Inactive 50 MG q. 50 MG FUMARATE [id number] evening [id number] PERMETHRIN 5 apply PERMETHRIN 395665 PERMETHRIN Inactive % CREA neck to 5 % CREA toes tonight and then rinse off in morning. repeat at 7 days DIFLUCAN 100 1 tablet DIFLUCAN 940183 FLUCONAZOLE Inactive MG TAB by mouth 100 MG TAB daily POTASSIUM 1 capsule POTASSIUM POTASSIUM Inactive CHLORIDE CR by mouth CHLORIDE CR CHLORIDE 10 MEQ CPCR daily 10 MEQ CPCR FLUCONAZOLE one p.o. FLUCONAZOLE 19760111 FLUCONAZOLE Inactive 100 MG TABS q. day 2 100 MG TABS days TRAMADOL HCL 1 po tid TRAMADOL 810000 TRAMADOL HCL Inactive 50 MG TABS with ES HCL 50 MG Tylenol TABS NECON 35 1 po NECON NORETHINDRONE- Inactive () 1-35 daily () 1-35 ETH ESTRADIOL MG-MCG TABS MG-MCG TABS CIPRO 500 MG 1 tablet CIPRO 500 500008 CIPROFLOXACIN Inactive TAB by mouth MG TAB HCL twice daily ADIPEX-P 1/2 tab ADIPEX-P 226202 PHENTERMINE Inactive 37.5 MG CAPS po q am 37.5 MG HCL for CAPS weight loss ABILIFY 2 MG 1 po q hs ABILIFY 2 535806 ARIPIPRAZOLE Inactive TABS for major MG TABS depressio n HYDROCHLOROT 2 tabs HYDROCHLORO 813997 HYDROCHLOROTHI Inactive HIAZIDE 25 every THIAZIDE 25 AZIDE MG TABS morning MG TABS ABILIFY 5 MG one p.o. ABILIFY 5 193956 ARIPIPRAZOLE Inactive TABS q. day MG TABS CIPROFLOXACI Take one CIPROFLOXAC 722697 CIPROFLOXACIN Inactive N HCL 500 MG (1) IN HCL 500 HCL TABS tablet by MG TABS mouth twice a day PROMETHAZINE 1 tab by PROMETHAZIN 078028 PROMETHAZINE Inactive HCL 25 MG mouth E HCL 25 MG HCL TABS every 6 TABS hours as needed PHENTERMINE 1 po q am PHENTERMINE 159026 PHENTERMINE Inactive HCL 37.5 MG for wt. HCL 37.5 MG HCL TABS loss TABS AMARYL 1 MG 1 tab AMARYL 1 MG 19910808 GLIMEPIRIDE Inactive TABS twice TABS daily METFORMIN 1 tablet METFORMIN 168739 METFORMIN HCL Inactive HCL 500 MG by mouth HCL 500 MG TABS twice TABS daily SPIRONOLACTO 1 tablet SPIRONOLACT 775512 SPIRONOLACTONE Inactive NE 25 MG TAB by mouth ONE 25 MG daily TAB POTASSIUM 2 capsule POTASSIUM POTASSIUM Inactive CHLORIDE CR by mouth CHLORIDE CR CHLORIDE 10 MEQ CPCR daily 10 MEQ CPCR LISINOPRIL 1 tablet LISINOPRIL 507373 LISINOPRIL Inactive 20 MG TABS by mouth 20 MG TABS daily DIFLUCAN 100 1 tablet DIFLUCAN 429747 FLUCONAZOLE Inactive MG TABS by mouth 100 MG TABS every other day for 2 doses DIFLUCAN 100 1 tablet DIFLUCAN 058742 FLUCONAZOLE Inactive MG TAB by mouth 100 MG TAB daily x 3 days PREDNISONE 2 tablets PREDNISONE 770010 PREDNISONE Inactive 20 MG TAB today, 20 MG TAB then 1 tablet days 2-4 VYVANSE 20 1 tablet VYVANSE 20 LISDEXAMFETAMI Inactive MG ORAL CAPS daily for MG ORAL NE DIMESYLATE binge CAPS eating disorder TRAMADOL HCL 1/2 po TRAMADOL 076406 TRAMADOL HCL Inactive 50 MG TABS tid [...] TB24 daily AMOXICILLIN 2 po BID AMOXICILLIN 867127 AMOXICILLIN Inactive 500 MG CAPS x 10 days 500 MG CAPS PREDNISONE 2 tabs PREDNISONE 802359 PREDNISONE Inactive 20 MG TAB daily for 20 MG TAB 3 days, 1 tab daily for 3 days, 1/2 tab daily for 2 days NITROFURANTO One NITROFURANT 6004322 NITROFURANTOIN Inactive IN MONOHYD capsule OIN MONOHYD MONOHYD MACRO MACRO 100 MG BID for MACRO 100 CAPS UTI MG CAPS PREDNISONE 2 pills PREDNISONE 496576 PREDNISONE Inactive 20 MG TAB daily x 4 20 MG TAB days AZITHROMYCIN 2 po qd x AZITHROMYCI 1014146 AZITHROMYCIN Inactive 250 MG TABS 1 day, N 250 MG then 1 po TABS qd x 4 days CIPRO 250 MG 1 tablet CIPRO 250 270532 CIPROFLOXACIN Inactive TAB by mouth MG TAB [...] HGBA1C - Chemistry sodium, serum 140 mmol/L 808-550 9495/06/03 potassium, serum 3.9 mmol/L 3.5-5.2 chloride, serum 105 mmol/L 98-107 carbon dioxide, venous blood 29.4 mmol/L 21.0-32.0 blood glucose 124 mg/dL 65-110 calcium, serum 8.9 mg/dL 8.5-10.1 urea nitrogen, blood 14 mg/dL 7-18 creatinine, serum 0.88 mg/dL 0.55-1.30 hemoglobin A1C, blood, as % of total hemoglobin 5.7 % 4.3-6.0 Lab Report: Chlamydia/GC APTIMA/[id number] - Lab chlamydia DNA probe NOT DETECTED NOT DETECTED Lab Report: Chlamydia/GC APTIMA/[id number] - Microbiology Neisseria gonorrhoeae DNA probe NOT DETECTED NOT DETECTED Lab Report: Lipid Panel - Chemistry cholesterol, serum 157 mg/dL 632-813 0938/08/22 triglyceride, serum, fasting 215 mg/dL 30-200 HDL [...] mg/dL Encounters Code Encounter Date Provider Facility CPT-22316 Level 4 Est. Patient [facility] - 17:02:40 WIRE STRAIGHTENING MACHINE OPERATOR [place] CPT-71431 Level 4 New Patient Yury Benoit MD [facility] 15:17:12 CDT CPT-72476 Level 3 Est. Patient [facility] - 13:37:46 CDT [place] CPT-75503 Level 4 Est. Patient [facility] - 10:01:06 CDT [place] CPT-99015 Level 3 Est. Patient [facility] 08:58:07 CDT SUPERVISOR HARVESTING CPT-34639 Level 3 Est. Patient Faby Marino [facility] 14:40:56 CDT [facility] CPT-89783 Level 4 Est. Patient [facility] 17:29:53 WIRE STRAIGHTENING MACHINE OPERATOR SUPERVISOR HARVESTING CPT-27685 Level 4 Est. Patient [facility] 09:51:54 WIRE STRAIGHTENING MACHINE OPERATOR CPT-18479 Level 3 Est. Patient [facility] 18:59:38 CDT CPT-53635 Level 3 Est. Patient Joseph Pineda [facility] 14:42:12 CDT -[facility] CPT-42058 Level 3 Est. Patient Joseph Pineda [facility] 22:18:20 CDT -[facility] CPT-06797 Level 3 Est. Patient Joseph Pineda [facility] 16:46:04 CDT -[facility] CPT-03851 Level 3 Est. Patient Joseph Edwin [facility] 15:39:53 CDT -[facility] CPT-99340 Level 3 Est. Patient Maite Sanchez MD [facility] 13:33:34 CDT -[facility] CPT-58273 Level 3 Est. Patient Joseph Pineda [facility] 11:37:08 CDT -[facility] CPT-74971 Level 3 Est. Patient Joseph Edwin [facility] 17:13:29 WIRE STRAIGHTENING MACHINE OPERATOR -RHC CPT-00234 Level 3 Est. Patient Joseph Pineda [facility] 18:42:44 CDT CPT-12915 Level 3 Est. Patient Joseph Edwin [facility] 16:25:39 CDT CPT-93087 Level 3 Est. Patient Casey Brower [facility] 09:52:45 CDT -[facility] CPT-44272 Level 3 Est. Patient Joseph Pineda [facility] 11:03:29 WIRE STRAIGHTENING MACHINE OPERATOR -[facility]HC CPT-59558 Level 3 Est. Patient Joseph Pineda [facility] 11:03:08 WIRE STRAIGHTENING MACHINE OPERATOR -[facility] CPT-84422 Level 3 Est. Patient Joseph Edwin [facility] 14:33:31 CDT -[facility] CPT-12052 Level 3 Est. Patient Joseph Pineda [facility] 17:05:02 WIRE STRAIGHTENING MACHINE OPERATOR -[facility]HC CPT-94491 Level 3 Est. Patient Joseph Edwin [facility] 17:48:06 WIRE STRAIGHTENING MACHINE OPERATOR -RHC CPT-25607 Level 3 Est. Patient Joseph Trivedi [facility] 14:59:22 WIRE STRAIGHTENING MACHINE OPERATOR -RHC CPT-93519 Level 3 Est. Patient Joseph Trivedi [facility] - 21:45:56 WIRE STRAIGHTENING MACHINE OPERATOR Varna C CPT-50172 Level 3 Est. Patient Joseph Trivedi [facility] 21:29:50 CDT -[facility] CPT-54338 Level 3 Est. Patient Joseph Pineda [facility] 12:41:09 CDT -[facility] Procedures Code Procedure Name Date Entry Date Standard Description CPT-30664 Wet Mount - LAB USE ONLY 12:39:03 WIRE STRAIGHTENING MACHINE OPERATOR CPT-26536 Vaginal Culture - LAB USE ONLY 12:39:03 WIRE STRAIGHTENING MACHINE OPERATOR CPT-62002 Urine Culture - LAB USE ONLY 11:52:44 WIRE STRAIGHTENING MACHINE OPERATOR CPT-62623 UA w micro - LAB USE ONLY 11:52:44 WIRE STRAIGHTENING MACHINE OPERATOR CPT-20697 Postop F/U Visit 12:08:35 CDT CPT-57056 Postop F/U Visit 18:20:10 CDT CPT-A4351 Coloplast Female Cath 09:37:10 CDT CPT-27380 Urine Dip (Floor Use Only) 15:17:13 CDT CPT-14285 Dil F ureth int 15:17:13 CDT CPT-46419 Venipuncture Draw Fee 09:19:08 CDT CPT-28282 Lipid - LAB USE ONLY 09:19:07 CDT CPT-JTINJ Asp/Joint Injection 09:26:49 CDT CPT-61012 Chest 2V Frontal and Lat 14:47:43 CDT CPT-JTINJ Asp/Joint Injection 09:51:53 WIRE STRAIGHTENING MACHINE OPERATOR CPT-OV Office Visit 17:39:05 CDT CPT-OV Office Visit 15:19:50 CDT CPT-29549 Sono transvag pelvis non OB uterus ovaries cervix 18:04:34 CDT CPT-55001 Venipuncture Draw Fee 08:55:49 WIRE STRAIGHTENING MACHINE OPERATOR
--- OUTSIDE RECORDS SUMMARY | 2016-11-20 13:37 | External Medical Summary | Clinical Summary ---
:1965 Author Organization [facility] [employer] Address [address] [address] Phone Allergies, Adverse Reactions, Alerts Allergy Name Reaction Description Start Date Severity Status Provider VERSED States jsut about Critical Active Gloria Saavedra CAMPGROUND ATTENDANT killed her NKDA Critical Active Indigo Yokum ON SITE COORDINATOR NKDA Critical No Longer Indigo Yokum ON SITE COORDINATOR Active NKDA Critical Inactive Adrianna Elder Conditions [...] 311 Active Indigo Depressive chronic 09/20 Yokum ON SITE COORDINATOR disorder, not elsewhere classified SCABIES 133.0 Resolved Maite Gutierrez Scabies 06/23 Laura ONEAL PhD HYPERTENSION 401.9 Active Joseph Pineda Unspecified 05/24 Farooq DO essential hypertension FATIGUE 780.79 Resolved Indigo Other malaise 05/24 07/02 Yokum ON SITE COORDINATOR and fatigue SLEEP APNEA, 327.23 Active Joseph Pineda Obstructive OBSTRUCTIVE, 06/27 06/27 Farooq DO sleep apnea MILD (adult) (pediatric) OVERWEIGHT 278.02 Inactive Joseph Pineda Overweight 06/28 06/28 Farooq DO Obesity 278.00 Active Indigo Obesity, 06/28 10/18 Yokum ON SITE COORDINATOR unspecified OT GENERAL V70.3 Resolved Maite C Other general MEDICAL Laura ONEAL medical EXAMINATION PhD examination for ADMIN administrative PURPOSES purposes OTHER 790.29 Resolved Maite C Other abnormal ABNORMAL 05/20 Laura ONEAL glucose GLUCOSE PhD ACUTE 466.0 Resolved Maite Gutierrez Acute bronchitis BRONCHITIS 09/02 Laura ONEAL PhD DEPENDENT 782.3 Resolved Indigo Edema EDEMA, LEGS, 10/29 10/18 Yokum ON SITE COORDINATOR BILATERAL HYPOKALEMIA, 276.8 Resolved Indigo Hypopotassemia MILD 10/29 07/02 Yo ON SITE COORDINATOR Diabetes, 250.00 Inactive Joseph Pineda Diabetes Type 2 06/27 06/27 Farooq DO mellitus without mention of complication, type II or unspecified type, not stated as uncontrolled Diabetes 250.02 Resolved Indigo Diabetes mellitus, 06/27 10/18 Yokum ON SITE COORDINATOR mellitus without type II, mention of uncontrolled [...] Resolved Indigo Routine gynecological 12/14 07/02 Yo ON SITE COORDINATOR gynecological examination examination Postmenopausa 627.1 Resolved Indigo Postmenopausal l bleeding 12/14 07/02 Yokum ON SITE COORDINATOR bleeding Screening for V76.51 Resolved Indigo Screening for malignant 12/26 07/02 Yokum ON SITE COORDINATOR malignant neoplasms of neoplasms of colon colon Insomnia, 307.42 Active 2015/0 Indigo 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 ON SITE COORDINATOR disorder of initiating or maintaining sleep Establish V68.89 Resolved Indigo Encounters for care or get 01/16 07/02 Yokum ON SITE COORDINATOR other specified acquainted administrative visit purpose Weakness, 342.90 Resolved Indigo Hemiplegia, left side of 06/20 10/18 Yokum ON SITE COORDINATOR unspecified, body affecting unspecified side TIA 435.9 Active Indigo Unspecified 06/20 07/02 Yokum ON SITE COORDINATOR transient cerebral ischemia Knee pain, 719.46 Active Indigo Pain in joint bilateral 06/20 10/18 Yokum ON SITE COORDINATOR involving lower leg Bronchitis 490 Resolved Indigo Bronchitis, not 07/23 10/18 Yokum ON SITE COORDINATOR specified as acute or chronic Diabetes 357.2 Active Maliheh Polyneuropathy mellitus, 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 y Knee pain, 719.46 Resolved Indigo Pain in joint right 06/20 09/20 Yokum ON SITE COORDINATOR involving lower leg Jesi 112.3 Resolved Indigo Candidiasis of intertrigo 10/09 09/20 Yokum ON SITE COORDINATOR skin and nails Hyperlipidemi 272.4 Active Anne Other and a 12/24 12/24 Neil unspecified RMA hyperlipidemia Incontinence, 788.33 Resolved Indigo Mixed mixed, 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 ON SITE COORDINATOR incontinence urge/stress (female) (male) Female stress 625.6 Active Yury Monaco Stress incontinence 01/03 01/03 Cy patel MD female Vaginal odor 623.8 Resolved Indigo Other specified 05/28 09/20 Yokum ON SITE COORDINATOR noninflammatory disorders of vagina Urinary tract 599.0 Resolved Indigo Urinary tract infection 05/28 09/20 Yokum ON SITE COORDINATOR infection, site not specified Urine odor 791.9 Resolved Indigo Other 05/28 09/20 Yokum ON SITE COORDINATOR nonspecific findings on examination of urine Unspecified Resolved Indigo dyspareunia 08/19 09/20 Yokum ON SITE COORDINATOR Depression Resolved Indigo 09/20 Yokum ON SITE COORDINATOR Anxiety Active Indigo Anxiety state, Disorder 08/26 Yokum ON SITE COORDINATOR unspecified ABNORMAL VAGINAL ICD-626.9 Inactive Maite Matt Sanchez BLEEDING PhD SCABIES ICD-133.0 Inactive Maite C Laura PhD OTH GENERAL ICD-V70.3 Inactive Maite C Laura MEDICAL MD PhD EXAMINATION ADMIN PURPOSES OTHER ABNORMAL ICD-790.29 Inactive Maite C Laura GLUCOSE PhD ACUTE BRONCHITIS ICD-466.0 Inactive Maite Sanchez PhD DEPENDENT EDEMA, ICD-782.3 Inactive Indigo Yokum LEGS, BILATERAL ON SITE COORDINATOR HYPOKALEMIA, MILD ICD-276.8 Inactive Indigo Yokum ON SITE COORDINATOR Diabetes mellitus, ICD-250.02 Inactive Indigo Yokum type II, ON SITE COORDINATOR uncontrolled Sinusitis, ICD-461.1 Inactive Ismael Coyne frontal, acute Amandeep ONEAL Laryngitis, acute ICD-464.00 Inactive Ismael Coyne Amandeep ONEAL Routine ICD-V72.31 Inactive Indigo Yokum gynecological ON SITE COORDINATOR examination Postmenopausal ICD-627.1 Inactive Indigo Yokum 2015 bleeding ON SITE COORDINATOR Screening for ICD-V76.51 Inactive Indigo Yokum 2015 malignant ON SITE COORDINATOR neoplasms of colon Establish care or ICD-V68.89 Inactive Indigo Yokum get acquainted ON SITE COORDINATOR visit Weakness, left ICD-342.90 Inactive Indigo Yokum side of body ON SITE COORDINATOR Bronchitis ICD-490 Inactive Indigo Yokum ON SITE COORDINATOR Knee pain, right ICD-719.46 Inactive Indigo Yokum ON SITE COORDINATOR Jesi intertrigo ICD-112.3 Inactive Indigo Yokum ON SITE COORDINATOR Incontinence, ICD-788.33 Inactive Indigo Yokum 2016 mixed, urge/stress ON SITE COORDINATOR Vaginal odor ICD-623.8 Inactive Indigo Yokum 09/20 ON SITE COORDINATOR Urinary tract ICD-599.0 Inactive Indigo Yokum 09/20 infection ON SITE COORDINATOR Urine odor ICD-791.9 Inactive Indigo Yokum ON SITE COORDINATOR FATIGUE ICD-780.79 Inactive Indigo Yokum ON SITE COORDINATOR Unspecified Inactive Indigo Yokum dyspareunia ON SITE COORDINATOR Depression Inactive Indigo Yokum ON SITE COORDINATOR Medication List Medication Instructions Start Stop Generic NDC Status Provider Patient Date Date Name Instruction ALPRAZOLAM 3 one p.o. ALPRAZOLAM 26738467886 Active Indigo Active MG [id number] q.h.s. Yokum ON SITE COORDINATOR ABILIFY 10 MG Take one ARIPIPRAZOLE 98201484187 Active Indigo Active ORAL TABS tablet Yokum daily for ON SITE COORDINATOR depression CELEBREX 200 1 tablet 2 CELECOXIB 52092717774 No Indigo Active MG CAPS by mouth 0 Longer Yokum daily with 1 Active ON SITE COORDINATOR meals 7 / 0 4 / 2 4 TROKENDI XR 1 tab by 2 TOPIRAMATE 90002044030 No Indigo Active 100 MG ORAL mouth 0 Longer Yokum [id number] daily 1 Active ON SITE COORDINATOR 7 0 4 VESICARE 10 MG 1 pill by SOLIFENACIN 87887581832 Active J Carlos Enrique Active TABS mouth SUCCINATE Benoit daily for MD overactive bladder CIPRO 250 MG 1 tablet 2 CIPROFLOXACIN 83145917055 No Indigo Active TAB by mouth 0 HCL Longer Yokum twice 1 Active ON SITE COORDINATOR daily 7 METFORMIN HCL 2 tablets 2 METFORMIN HCL 86683862966 No Indigo Active 500 MG TB24 by mouth 0 Longer Yokum twice 1 Active ON SITE COORDINATOR daily 2 AMARYL 1 MG 1 tablet 2 GLIMEPIRIDE 16128971511 No Indigo Active ORAL TABS orally 0 Longer Yokum twice 1 Active ON SITE COORDINATOR daily 2 NYSTATIN apply to NYSTATIN 78365270675 Active Indigo Active 532901 UNIT/GM rash TID Yokum CREA PRN ON SITE COORDINATOR METOPROLOL 1 tab po METOPROLOL 59892000190 Active Indigo Active TARTRATE 25 MG bid TARTRATE Yokum TABS ON SITE COORDINATOR AZITHROMYCIN 2 po qd x 2 AZITHROMYCIN 21587676342 No Jillina Active 250 MG TABS 1 day, 0 Longer Frazell then 1 po 1 Active ON SITE COORDINATOR qd x 4 6 days / 0 3 / 2 6 PREDNISONE 20 2 pills 2 PREDNISONE 55312435693 No Jillina Active MG TAB daily x 4 0 Longer Frazell days 1 Active ON SITE COORDINATOR 6 / 0 3 / 2 5 PIOGLITAZONE take one a PIOGLITAZONE 40997492777 Active Maliheh Active HCL 30 MG ORAL day HCL Ziglari TABS 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 JANUVIA 100 MG 1 tablet 2 SITAGLIPTIN 38979972840 No Indigo Active TABS by mouth 0 PHOSPHATE Longer Yokum daily 1 Active ON SITE COORDINATOR 6 / 0 2 / 1 6 ATORVASTATIN 1 pill by ATORVASTATIN 71645470862 Active Indigo Active CALCIUM 10 MG mouth CALCIUM Yokum TABS nightly, ON SITE COORDINATOR for cholestero l ASPIRIN 81 MG 1 po qd ASPIRIN 35532128415 Active Indigo Active ORAL TABS Yokum ON SITE COORDINATOR NITROFURANTOIN One 2 NITROFURANTOIN 21192943043 No Indigo Active MONOHYD MACRO capsule 0 MONOHYD MACRO Longer Yokum 100 MG CAPS BID for 1 Active ON SITE COORDINATOR UTI 6 / 0 2 / 1 3 TRAMADOL HCL 1/2 po tid 2 TRAMADOL HCL 93589783360 No Jillina Active 50 MG TABS with ES 0 Longer Frazell Tylenol 1 Active ON SITE COORDINATOR prn pain 5 / 0 8 2 VYVANSE 20 MG 1 tablet 2 LISDEXAMFETAMI 40063669339 No Jillina Active ORAL CAPS daily for 0 NE DIMESYLATE Longer Frazell binge 1 Active ON SITE COORDINATOR eating 5 disorder / 0 2 LASIX 20 MG 2 tablet FUROSEMIDE 09218243584 Active Indigo Active TAB by mouth Yokum daily ON SITE COORDINATOR PREDNISONE 20 2 tablets 2 PREDNISONE 53216447908 No Joseph W Active MG TAB today, 0 Longer Farooq DO then 1 1 Active tablet 5 days 2-4 / 0 4 3 DIFLUCAN 100 1 tablet 2 FLUCONAZOLE 39392212930 No Joseph W Active MG TAB by mouth 0 Longer Farooq DO daily x 3 1 Active days 5 / 0 4 / 3 DIFLUCAN 100 1 tablet 2 FLUCONAZOLE 96773968491 No Joseph W Active MG TABS by mouth 0 Longer Farooq DO every 1 Active other day 5 for 2 / doses 0 1 / 2 3 ZOFRAN 4 MG 1 po q6hr ONDANSETRON 22404603948 Active Joseph W Active TABS PRN Nausea HCL Farooq DO PREDNISONE 20 2 tabs 2 PREDNISONE 44827118165 No Joseph W Active MG TAB daily for 0 Longer Farooq DO 3 days, 1 1 Active tab daily 4 for 3 / days, 1/2 1 tab daily 0 for 2 days / 2 5 AMOXICILLIN 2 po BID x 2 AMOXICILLIN 45175186428 No Maite C Active 500 MG CAPS 10 days 0 Longer Madril 1 Active MD PhD 4 / 1 0 / 2 0 LISINOPRIL 20 1 tablet 2 LISINOPRIL 93121314273 No Maite C Active MG TABS by mouth 0 Longer Madril daily 1 Active MD PhD 4 0 / 1 0 POTASSIUM 2 capsule 2 POTASSIUM 53122192367 No Joseph W Active CHLORIDE CR 10 by mouth 0 CHLORIDE Longer Farooq DO MEQ CPCR daily 1 Active 4 / 0 8 / 2 9 SPIRONOLACTONE 1 tablet 2 SPIRONOLACTONE 44425936170 No Joseph W Active 25 MG TAB by mouth 0 Longer Farooq DO daily 1 Active 4 / 0 8 / 2 9 METFORMIN HCL 1 tablet 2 METFORMIN HCL 22150478458 No Joseph W Active 500 MG TABS by mouth 0 Longer Farooq DO twice 1 Active daily 4 / 0 8 / 2 9 AMARYL 1 MG 1 tab 2 GLIMEPIRIDE 41694185357 No Joseph W Active TABS twice 0 Longer Farooq DO daily 1 Active 4 / 0 8 / 2 9 PHENTERMINE 1 po q am 2 PHENTERMINE 88027637850 No Joseph W Active HCL 37.5 MG for wt. 0 HCL Longer Farooq DO TABS loss 1 Active 3 / 1 2 / 2 3 PROMETHAZINE 1 tab by 2 PROMETHAZINE 41951419428 No Joseph W Active HCL 25 MG TABS mouth 0 HCL Longer Farooq DO every 6 1 Active hours as 3 needed / 0 9 / 0 9 CIPROFLOXACIN Take one 2 CIPROFLOXACIN 07349461094 No Joseph W Active HCL 500 MG (1) tablet 0 HCL Longer Farooq DO TABS by mouth 1 Active twice a 3 day / 0 9 / 0 9 ABILIFY 5 MG one p.o. 2 ARIPIPRAZOLE 64925888656 No Joseph W Active TABS q. day 0 Longer Farooq DO 1 Active 3 / 0 9 / 0 9 HYDROCHLOROTHI 2 tabs 2 HYDROCHLOROTHI 52711791759 No Joseph W Active AZIDE 25 MG every 0 AZIDE Longer Farooq DO TABS morning 1 Active 3 / 0 6 / 2 7 ABILIFY 2 MG 1 po q hs 2 ARIPIPRAZOLE 38785879813 No Joseph W Active TABS for major 0 Longer Farooq DO depression 1 Active 3 / 0 5 / 0 7 ADIPEX-P 37.5 1/2 tab po 2 PHENTERMINE 02836962032 No Casey Active MG CAPS q am for 0 HCL Longer weight 1 Active PA loss 3 / 0 5 / 0 1 CIPRO 500 MG 1 tablet 2 CIPROFLOXACIN 06257122516 No Casey Active TAB by mouth 0 HCL Longer Seymour twice 1 Active PA daily 3 / 0 5 / 0 1 NECON 1 po daily 2 NORETHINDRONE- 99841761835 No Casey Active () 1-35 0 ETH ESTRADIOL Longer MG-MCG TABS 1 Active PA 3 / 0 5 / 0 1 TRAMADOL HCL 1 po tid 2 TRAMADOL HCL 37322656512 No Casey Active 50 MG TABS with ES 0 Longer Tylenol 1 Active PA 3 / 0 5 / 0 1 FLUCONAZOLE one p.o. 2 FLUCONAZOLE 14330384405 No Casey Active 100 MG TABS q. day 2 0 Longer days 1 Active PA 3 / 0 5 / 0 1 POTASSIUM 1 capsule 2 POTASSIUM 51313876300 No Casey Active CHLORIDE CR 10 by mouth 0 CHLORIDE Longer MEQ CPCR daily 1 Active PA 3 / 0 5 / 0 1 IMIPRAMINE HCL Take 6 IMIPRAMINE HCL 37756963750 Active Indigo Active 50 MG TABS tablets by Yokum mouth at ON SITE COORDINATOR bedtime DIFLUCAN 100 1 tablet 2 FLUCONAZOLE 61946442894 No Joseph W Active MG TAB by mouth 0 Longer Farooq DO daily 1 Active 2 / 0 2 / 2 4 VERAPAMIL HCL 2 po bid VERAPAMIL HCL 55001235816 Active Indigo Active CR 120 MG TAB Yokum CR ON SITE COORDINATOR PERMETHRIN 5 % apply neck 2 PERMETHRIN 92217409624 No Joseph W Active CREA to toes 0 Longer Farooq DO tonight 1 Active and then 2 rinse off / in 0 morning. 1 repeat at / 7 days 2 0 SEROQUEL XR 50 one p.o. 2 QUETIAPINE 91448547578 No Joseph W Active MG [id number] q. evening 0 FUMARATE Longer Farooq DO 1 Active 2 / 0 1 / 2 0 TRAMADOL HCL 1-2 2 TRAMADOL HCL 59744138413 No Joseph W Active 50 MG TABS tablets 0 Longer Farooq DO every 6-8 1 Active hours as 2 needed for / pain 0 1 / 2 0 ALPRAZOLAM XR Take 1 2 ALPRAZOLAM 85652213042 No Joseph W Active [id number] tablet by 0 [id number] Longer Farooq DO mouth at 1 Active bedtime 1 / 2 9 DIFLUCAN 100 1 tablet 2 FLUCONAZOLE 73411012756 No Joseph W Active MG TAB by mouth 0 Longer Farooq DO daily 1 Active 0 / 0 6 AMBIEN 10 MG 1 tab by ZOLPIDEM 88159348573 Active Indigo Active TAB mouth at TARTRATE Yokum bedtime as ON SITE COORDINATOR needed for sleep DIFLUCAN 100 1 tablet DIFLUCAN 030052 FLUCONAZOLE Inactive MG TAB by mouth 100 MG TAB daily ALPRAZOLAM Take 1 ALPRAZOLAM ALPRAZOLAM Inactive XR [id number] tablet by XR [id number] mouth at [id number] bedtime TRAMADOL HCL 1-2 TRAMADOL 569840 TRAMADOL HCL Inactive 50 MG TABS tablets HCL 50 MG every 6-8 TABS hours as needed for pain SEROQUEL XR one p.o. SEROQUEL XR QUETIAPINE Inactive 50 MG q. 50 MG FUMARATE [id number]-DIF evening [id number] PERMETHRIN 5 apply PERMETHRIN 673714 PERMETHRIN Inactive % CREA neck to 5 % CREA toes tonight and then rinse off in morning. repeat at 7 days DIFLUCAN 100 1 tablet DIFLUCAN 672032 FLUCONAZOLE Inactive MG TAB by mouth 100 MG TAB daily POTASSIUM 1 capsule POTASSIUM POTASSIUM Inactive CHLORIDE CR by mouth CHLORIDE CR CHLORIDE 10 MEQ CPCR daily 10 MEQ CPCR FLUCONAZOLE one p.o. FLUCONAZOLE 19760111 FLUCONAZOLE Inactive 100 MG TABS q. day 2 100 MG TABS days TRAMADOL HCL 1 po tid TRAMADOL 343779 TRAMADOL HCL Inactive 50 MG TABS with ES HCL 50 MG Tylenol TABS NECON 35 1 po NECON NORETHINDRONE- Inactive (28) 1-35 daily (28) 1-35 ETH ESTRADIOL MG-MCG TABS MG-MCG TABS CIPRO 500 MG 1 tablet CIPRO 500 293153 CIPROFLOXACIN Inactive TAB by mouth MG TAB HCL twice daily ADIPEX-P 1/2 tab ADIPEX-P 167229 PHENTERMINE Inactive 37.5 MG CAPS po q am 37.5 MG HCL for CAPS weight loss ABILIFY 2 MG 1 po q hs ABILIFY 2 708001 ARIPIPRAZOLE Inactive TABS for major MG TABS depressio n HYDROCHLOROT 2 tabs HYDROCHLORO 278841 HYDROCHLOROTHI Inactive HIAZIDE 25 every THIAZIDE 25 AZIDE MG TABS morning MG TABS ABILIFY 5 MG one p.o. ABILIFY 5 286985 ARIPIPRAZOLE Inactive TABS q. day MG TABS CIPROFLOXACI Take one CIPROFLOXAC 452223 CIPROFLOXACIN Inactive N HCL 500 MG (1) IN HCL 500 HCL TABS tablet by MG TABS mouth twice a day PROMETHAZINE 1 tab by PROMETHAZIN 941145 PROMETHAZINE Inactive HCL 25 MG mouth E HCL 25 MG HCL TABS every 6 TABS hours as needed PHENTERMINE 1 po q am PHENTERMINE 720833 PHENTERMINE Inactive HCL 37.5 MG for wt. HCL 37.5 MG HCL TABS loss TABS AMARYL 1 MG 1 tab AMARYL 1 MG 774441 GLIMEPIRIDE Inactive TABS twice TABS daily METFORMIN 1 tablet METFORMIN 400055 METFORMIN HCL Inactive HCL 500 MG by mouth HCL 500 MG TABS twice TABS daily SPIRONOLACTO 1 tablet SPIRONOLACT 327562 SPIRONOLACTONE Inactive NE 25 MG TAB by mouth ONE 25 MG daily TAB POTASSIUM 2 capsule POTASSIUM POTASSIUM Inactive CHLORIDE CR by mouth CHLORIDE CR CHLORIDE 10 MEQ CPCR daily 10 MEQ CPCR LISINOPRIL 1 tablet LISINOPRIL 926755 LISINOPRIL Inactive 20 MG TABS by mouth 20 MG TABS daily DIFLUCAN 100 1 tablet DIFLUCAN 414232 FLUCONAZOLE Inactive MG TABS by mouth 100 MG TABS every other day for 2 doses DIFLUCAN 100 1 tablet DIFLUCAN 089002 FLUCONAZOLE Inactive MG TAB by mouth 100 MG TAB daily x 3 days PREDNISONE 2 tablets PREDNISONE 361320 PREDNISONE Inactive 20 MG TAB today, 20 MG TAB then 1 tablet days 2-4 VYVANSE 20 1 tablet VYVANSE 20 LISDEXAMFETAMI Inactive MG ORAL CAPS daily for MG ORAL NE DIMESYLATE binge CAPS eating disorder TRAMADOL HCL 1/2 po TRAMADOL 586347 TRAMADOL HCL Inactive 50 MG TABS tid with HCL 50 MG ES TABS Tylenol prn pain JANUVIA 100 1 tablet JANUVIA 100 SITAGLIPTIN Inactive MG TABS by mouth MG TABS PHOSPHATE daily AMARYL 1 MG 1 tablet AMARYL 1 MG 581743 GLIMEPIRIDE Inactive ORAL TABS orally ORAL TABS twice daily METFORMIN 2 tablets METFORMIN METFORMIN HCL Inactive HCL 500 MG by mouth HCL 500 MG TB24 twice TB24 daily TROKENDI XR 1 tab by TROKENDI XR TOPIRAMATE Inactive 100 MG ORAL mouth 100 MG ORAL [id number]-IXB daily [id number] CELEBREX 200 1 tablet CELEBREX 996257 CELECOXIB Inactive MG CAPS by mouth 200 MG CAPS daily with meals AMOXICILLIN 2 po BID AMOXICILLIN 150120 AMOXICILLIN Inactive 500 MG CAPS x 10 days 500 MG CAPS PREDNISONE 2 tabs PREDNISONE 393495 PREDNISONE Inactive 20 MG TAB daily for 20 MG TAB 3 days, 1 tab daily for 3 days, 1/2 tab daily for 2 days NITROFURANTO One NITROFURANT 4370823 NITROFURANTOIN Inactive IN MONOHYD capsule OIN MONOHYD MONOHYD MACRO MACRO 100 MG BID for MACRO 100 CAPS UTI MG CAPS PREDNISONE 2 pills PREDNISONE 721997 PREDNISONE Inactive 20 MG TAB daily x 4 20 MG TAB days AZITHROMYCIN 2 po qd x AZITHROMYCI 3499378 AZITHROMYCIN Inactive 250 MG TABS 1 day, N 250 MG then 1 po TABS qd x 4 days CIPRO 250 MG 1 tablet CIPRO 250 394522 CIPROFLOXACIN Inactive TAB by mouth MG TAB [...] HGBA1C - Chemistry sodium, serum 140 mmol/L 954-396 1101/06/03 potassium, serum 3.9 mmol/L 3.5-5.2 chloride, serum 105 mmol/L 98-107 carbon dioxide, venous blood 29.4 mmol/L 21.0-32.0 blood glucose 124 mg/dL 65-110 calcium, serum 8.9 mg/dL 8.5-10.1 urea nitrogen, blood 14 mg/dL 7-18 creatinine, serum 0.88 mg/dL 0.55-1.30 hemoglobin A1C, blood, as % of total hemoglobin 5.7 % 4.3-6.0 Lab Report: Chlamydia/GC APTIMA/[id number] - Lab chlamydia DNA probe NOT DETECTED NOT DETECTED Lab Report: Chlamydia/GC APTIMA/[id number] - Microbiology Neisseria gonorrhoeae DNA probe NOT DETECTED NOT DETECTED Lab Report: Lipid Panel - Chemistry cholesterol, serum 157 mg/dL 934-524 7732/08/22 triglyceride, serum, fasting 215 mg/dL 30-200 HDL [...] mg/dL Encounters Code Encounter Date Provider Facility CPT-10039 Level 4 Est. Patient Indigo Sexton [facility] - 16:58:20 CDT [place] CPT-75761 Level 3 Est. Patient Yury Benoit MD [facility] 17:20:07 CDT CPT-14950 Level 4 Est. Patient Indigo Sexton [facility] - 17:02:40 SALESPERSON FLOWERS [facility] CPT-50215 Level 4 New Patient Yury Benoit MD [facility] 15:17:12 CDT CPT-87974 Level 3 Est. [facility] [place] 13:37:46 [facility] CPT-51318 Level 4 Est. [facility] [place] - 10:01:06 CDT [facility] CPT-05894 Level 3 Est. 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 [facility] 14:40:56 CDT ON SITE COORDINATOR CPT-60199 Level 4 Est. 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 Patient [facility] 09:51:54 SALESPERSON FLOWERS CPT-31270 Level 3 Est. Patient [facility] 18:59:38 CDT CPT-34513 Level 3 Est. Patient Joseph Pineda [facility] 14:42:12 CDT -[facility] CPT-73944 Level 3 Est. Patient Joseph [facility] 22:18:20 CDT -RHC CPT-00738 Level 3 Est. Patient Joseph Pineda [facility] 16:46:04 CDT -RHC CPT-61034 Level 3 Est. Patient Joseph Pineda [facility] 15:39:53 CDT -RHC CPT-06836 Level 3 Est. Patient Maite Sanchez MD PhD [facility] 13:33:34 CDT -RHC CPT-45176 Level 3 Est. Patient Joseph Pineda [facility] 11:37:08 CDT -RHC CPT-15705 Level 3 Est. Patient Joseph Pineda [facility] 17:13:29 SALESPERSON FLOWERS -RHC CPT-10590 Level 3 Est. Patient Joseph Pineda [facility] 18:42:44 CDT CPT-07106 Level 3 Est. Patient Joseph Trivedi [facility] 16:25:39 CDT CPT-11530 Level 3 Est. Patient Casey Brower [facility] 09:52:45 CDT -RHC CPT-50409 Level 3 Est. Patient Joseph Pineda [facility] 11:03:29 SALESPERSON FLOWERS -RHC CPT-84630 Level 3 Est. Patient Joseph Pineda [facility] 11:03:08 SALESPERSON FLOWERS -RHC CPT-82768 Level 3 Est. Patient Joseph Pineda [facility] 14:33:31 CDT -RHC CPT-31720 Level 3 Est. Patient Joseph Pineda [facility] 17:05:02 SALESPERSON FLOWERS -RHC CPT-91913 Level 3 Est. Patient Joseph Pineda [facility] 17:48:06 SALESPERSON FLOWERS -RHC CPT-24337 Level 3 Est. Patient Joseph Pineda [facility] 14:59:22 SALESPERSON FLOWERS -RHC CPT-94367 Level 3 Est. Patient Joseph Pineda [facility] - 21:45:56 SALESPERSON FLOWERS Jose [facility] CPT-41748 Level 3 Est. Patient Joseph Pineda [facility] 21:29:50 CDT -RHC CPT-96418 Level 3 Est. Patient Joseph Pineda [facility] 12:41:09 CDT -RHC Procedures Code Procedure Name Date Entry Date Standard Description CPT-52589 Wet Mount - LAB USE ONLY 12:39:03 SALESPERSON FLOWERS CPT-99344 Vaginal Culture - LAB USE ONLY 12:39:03 SALESPERSON FLOWERS CPT-00189 Urine Culture - LAB USE ONLY 11:52:44 SALESPERSON FLOWERS CPT-00685 UA w micro - LAB USE ONLY 11:52:44 SALESPERSON FLOWERS CPT-66201 Postop F/U Visit 12:08:35 CDT CPT-05925 Postop F/U Visit 18:20:10 CDT CPT-A4351 Coloplast Female Cath 09:37:10 CDT CPT-94410 Urine Dip (Floor Use Only) 15:17:13 CDT CPT-47075 Dil F ureth int 15:17:13 CDT CPT-08956 Venipuncture Draw Fee 09:19:08 CDT CPT-85362 Lipid - LAB USE ONLY 09:19:07 CDT CPT-JTINJ Asp/Joint Injection 09:26:49 CDT CPT-32440 Chest 2V Frontal and Lat 14:47:43 CDT CPT-JTINJ Asp/Joint Injection 09:51:53 SALESPERSON FLOWERS CPT-OV Office Visit 17:39:05 CDT CPT-OV Office Visit 15:19:50 CDT CPT-13287 Sono transvag pelvis non OB uterus ovaries cervix 18:04:34 CDT CPT-20116 Venipuncture Draw Fee 08:55:49 SALESPERSON FLOWERS
--- OUTSIDE RECORDS SUMMARY | 2016-11-20 13:38 | External Medical Summary | Clinical Summary ---
:1965 Author Organization [facility] Address [address] [place] [address] Phone Allergies, Adverse Reactions, Alerts Allergy Name Reaction Description Start Date Severity Status Provider NKDA Critical No Longer Indigo Sexton CEMENT SIDE LASTER Active NKDA Critical Inactive Adrianna Elder Conditions [...] 464.00 Resolved [facility]el 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 CEMENT SIDE LASTER disorder of initiating or maintaining sleep Establish care V68.89 Active Indigo Encounters for or get 01/16 01/18 Yokum CEMENT SIDE LASTER other specified acquainted administrative visit purpose Weakness, left 342.90 Active Indigo Hemiplegia, side of body 06/20 06/20 Yokum CEMENT SIDE LASTER unspecified, affecting unspecified side ABNORMAL VAGINAL ICD-626.9 Inactive Maite Sanchez BLEEDING [...] Status Provider Patient Date Date Name Instruction ATORVASTATIN 1 pill by ATORVASTATIN [id number] Active Indigo Active CALCIUM 10 MG mouth CALCIUM [place] TABS nightly, for CEMENT SIDE LASTER cholesterol TROKENDI XR 1 tab daily TOPIRAMATE 98826994404 Active Indigo Active 100 MG ORAL [facility]um [id number] CEMENT SIDE LASTER ASPIRIN 81 MG 1 po qd ASPIRIN 12482723334 Active Indigo Active ORAL TABS Yokum CEMENT SIDE LASTER NITROFURANTOIN One capsule 2 NITROFURANTOIN 47816979384 No Indigo Active MONOHYD MACRO BID for UTI 0 MONOHYD MACRO Longer Yokum 100 MG CAPS 1 Active CEMENT SIDE LASTER 6 / 0 2 / 1 3 JANUVIA 100 MG 1 tablet by SITAGLIPTIN 65657010343 Active Indigo Active TABS mouth daily PHOSPHATE [place] CEMENT SIDE LASTER METFORMIN HCL 2 tablets by METFORMIN HCL 47318175733 Active Indigo Active 500 MG TB24 mouth twice Yokum daily CEMENT SIDE LASTER TRAMADOL HCL 1/2 po tid 2 TRAMADOL HCL 59914819397 No Jillin Active 50 MG TABS with ES 0 Longer a Tylenol prn 1 Active Frazel pain 5 l CEMENT SIDE LASTER / 0 8 / 1 2 VYVANSE 20 MG 1 tablet 2 LISDEXAMFETAMI 51673697515 No Jillin Active ORAL CAPS daily for 0 NE DIMESYLATE Longer a binge eating 1 Active Frazel disorder 5 l CEMENT SIDE LASTER / 0 8 / 1 2 LASIX 20 MG 2 tablet by FUROSEMIDE 31515054359 Active Joseph Active TAB mouth daily W [place] DO CELEBREX 200 1 tablet by CELECOXIB 36042084363 Active Joseph Active MG CAPS mouth daily W [place] with meals DO PREDNISONE 20 2 tablets 2 PREDNISONE 58168227768 No Joseph Active MG TAB today, then 0 Longer [place] 1 tablet 1 Active DO days 2-4 5 / 0 4 / 3 DIFLUCAN 100 1 tablet by 2 FLUCONAZOLE 43018338934 No Joseph Active MG TAB mouth daily 0 Longer [place] x 3 days 1 Active DO 5 / 0 3 AMARYL 1 MG 1 tablet GLIMEPIRIDE 28735862447 Active Joseph Active ORAL TABS orally twice W [place] daily DO DIFLUCAN 100 1 tablet by 2 FLUCONAZOLE 31393114027 No Joseph Active MG TABS mouth every 0 Longer [place] other day 1 Active DO for 2 doses 5 / 0 1 / 2 3 ZOFRAN 4 MG 1 po q6hr ONDANSETRON 92527024937 Active Joseph Active TABS PRN Nausea HCL W [place] DO PREDNISONE 20 2 tabs daily 2 PREDNISONE 80996814718 No Joseph Active MG TAB for 3 days, 0 Longer [place] 1 tab daily 1 Active DO for 3 days, 4 1/2 tab / daily for 2 1 days 0 / 2 5 AMOXICILLIN 2 po BID x 2 AMOXICILLIN 84178557430 No Maite C Active 500 MG CAPS 10 days 0 Longer Madril 1 Active PhD 0 / 2 0 LISINOPRIL 20 1 tablet by 2 LISINOPRIL 05890810974 No Maite C Active MG TABS mouth daily 0 Longer Madril 1 Active PhD 0 / 1 0 POTASSIUM 2 capsule by 2 POTASSIUM 28374889578 No Joseph Active CHLORIDE CR 10 mouth daily 0 CHLORIDE Longer [place] MEQ CPCR 1 Active DO 4 / 0 8 / 2 9 SPIRONOLACTONE 1 tablet by 2 SPIRONOLACTONE 02650676081 No Joseph Active 25 MG TAB mouth daily 0 Longer [place] 1 Active DO 4 / 0 8 / 2 9 METFORMIN HCL 1 tablet by 2 METFORMIN HCL 98149579556 No Joseph Active 500 MG TABS mouth twice 0 Longer [place] daily 1 Active DO 4 / 0 8 / 2 9 AMARYL 1 MG 1 tab twice 2 GLIMEPIRIDE 14778273509 No Joseph Active TABS daily 0 Longer [place] 1 Active DO 4 / 0 8 / 2 9 PHENTERMINE 1 po q am 2 PHENTERMINE 73050699933 No Joseph Active HCL 37.5 MG for wt. loss 0 HCL Longer [place] TABS 1 Active DO 3 / 1 2 / 2 3 PROMETHAZINE 1 tab by 2 PROMETHAZINE 77542849481 No Joseph Active HCL 25 MG TABS mouth every 0 HCL Longer [place] 6 hours as 1 Active DO needed 3 / 0 9 / 0 9 CIPROFLOXACIN Take one (1) 2 CIPROFLOXACIN 93945896620 No Joseph Active HCL 500 MG tablet by 0 HCL Longer [place] TABS mouth twice 1 Active DO a day 3 / 0 9 / 0 9 ABILIFY 5 MG one p.o. q. 2 ARIPIPRAZOLE 37250601379 No Joseph Active TABS day 0 Longer [place] 1 Active DO 3 / 0 9 / 0 9 HYDROCHLOROTHI 2 tabs every 2 HYDROCHLOROTHI 52469653794 No Joseph Active AZIDE 25 MG morning 0 AZIDE Longer [place] TABS 1 Active DO 3 / 0 6 / 2 7 ABILIFY 2 MG 1 po q hs 2 ARIPIPRAZOLE 05674635247 No Joseph Active TABS for major 0 Longer [place] depression 1 Active DO 3 / 0 5 / 0 7 ADIPEX-P 37.5 1/2 tab po q 2 PHENTERMINE 91145245805 No Casey Active MG CAPS am for 0 HCL Longer [place] weight loss 1 Active PA 3 / 0 5 / 0 1 CIPRO 500 MG 1 tablet by 2 CIPROFLOXACIN 59666488000 No Casey Active TAB mouth twice 0 HCL Longer [place] daily 1 Active PA 3 / 0 5 / 0 1 NECON 1/35 1 po daily 2 NORETHINDRONE- 85912444584 No Casey Active (28) 1-35 0 ETH ESTRADIOL Longer Leonarda MG-MCG TABS 1 Active PA 3 / 0 5 / 0 1 TRAMADOL HCL 1 po tid 2 TRAMADOL HCL 39469236820 No Casey Active 50 MG TABS with ES 0 Longer [place] Tylenol 1 Active PA 3 / 0 5 / 0 1 FLUCONAZOLE one p.o. q. 2 FLUCONAZOLE 50834653767 No Casey Active 100 MG TABS day 2 days 0 Longer [place] 1 Active PA 3 / 0 5 / 0 1 POTASSIUM 1 capsule by 2 POTASSIUM 58465810021 No Casey Active CHLORIDE CR 10 mouth daily 0 CHLORIDE Longer [place] MEQ CPCR 1 Active PA 3 / 0 5 / 0 1 IMIPRAMINE HCL Take 6 IMIPRAMINE HCL 86891515067 Active Joseph Active 50 MG TABS tablets by W [place] mouth at DO bedtime DIFLUCAN 100 1 tablet by 2 FLUCONAZOLE 92492565954 No Joseph Active MG TAB mouth daily 0 Longer [place] 1 Active DO 2 / 0 2 / 2 4 METOPROLOL 1/2 tab po METOPROLOL 56177825905 Active Joseph Active TARTRATE 25 MG bid TARTRATE W [place] TABS DO VERAPAMIL HCL 2 po bid VERAPAMIL HCL 67027852819 Active Joseph Active CR 120 MG TAB W [place] CR DO PERMETHRIN 5 % apply neck 2 PERMETHRIN 04603379932 No Joseph Active CREA to toes 0 Longer [place] tonight and 1 Active DO then rinse 2 off in / morning. 0 repeat at 7 1 days / 2 0 SEROQUEL XR 50 one p.o. q. 2 QUETIAPINE 54594222162 No Joseph Active MG [id number] evening 0 FUMARATE Longer [place] 1 Active DO 2 / 0 1 / 2 0 TRAMADOL HCL 1-2 tablets 2 TRAMADOL HCL 78084035585 No Joseph Active 50 MG TABS every 6-8 0 Longer [place] hours as 1 Active DO needed for 2 pain / 0 1 / 2 0 ALPRAZOLAM 3 one p.o. ALPRAZOLAM 14047692768 Active Indigo Active MG [id number] q.h.s. Yokum CEMENT SIDE LASTER ALPRAZOLAM XR Take 1 2 ALPRAZOLAM 56900805543 No Joseph Active [id number] tablet by 0 [id number] Longer [place] mouth at 1 Active DO bedtime 1 / 2 9 DIFLUCAN 100 1 tablet by 2 FLUCONAZOLE 61851717878 No Joseph Active MG TAB mouth daily 0 Longer [place] 1 Active DO 0 / 0 6 AMBIEN 10 MG 1 tab by ZOLPIDEM 46304486771 Active Livan Active TAB mouth at TARTRATE le bedtime as Gerick needed for e, MA sleep DIFLUCAN 100 1 tablet DIFLUCAN 950862 FLUCONAZOLE Inactive MG TAB by mouth 100 MG TAB daily ALPRAZOLAM Take 1 ALPRAZOLAM ALPRAZOLAM Inactive XR [id number] tablet by XR [id number] mouth at [id number] bedtime TRAMADOL HCL 1-2 TRAMADOL 490672 TRAMADOL HCL Inactive 50 MG TABS tablets HCL 50 MG every 6-8 TABS hours as needed for pain SEROQUEL XR one p.o. SEROQUEL XR QUETIAPINE Inactive 50 MG q. 50 MG FUMARATE [id number] evening [id number] PERMETHRIN 5 apply PERMETHRIN 650098 PERMETHRIN Inactive % CREA neck to 5 % CREA toes tonight and then rinse off in morning. repeat at 7 days DIFLUCAN 100 1 tablet DIFLUCAN 906937 FLUCONAZOLE Inactive MG TAB by mouth 100 MG TAB daily POTASSIUM 1 capsule POTASSIUM POTASSIUM Inactive CHLORIDE CR by mouth CHLORIDE CR CHLORIDE 10 MEQ CPCR daily 10 MEQ CPCR FLUCONAZOLE one p.o. FLUCONAZOLE 19760111 FLUCONAZOLE Inactive 100 MG TABS q. day 2 100 MG TABS days TRAMADOL HCL 1 po tid TRAMADOL 190521 TRAMADOL HCL Inactive 50 MG TABS with ES HCL 50 MG Tylenol TABS NECON 1/35 1 po NECON 1/35 NORETHINDRONE- Inactive (28) 1-35 daily (28) 1-35 ETH ESTRADIOL MG-MCG TABS MG-MCG TABS CIPRO 500 MG 1 tablet CIPRO 500 609950 CIPROFLOXACIN Inactive TAB by mouth MG TAB HCL twice daily ADIPEX-P 1/2 tab ADIPEX-P 183274 PHENTERMINE Inactive 37.5 MG CAPS po q am 37.5 MG HCL for CAPS weight loss ABILIFY 2 MG 1 po q hs ABILIFY 2 070696 ARIPIPRAZOLE Inactive TABS for major MG TABS depressio n HYDROCHLOROT 2 tabs HYDROCHLORO 420402 HYDROCHLOROTHI Inactive HIAZIDE 25 every THIAZIDE 25 AZIDE MG TABS morning MG TABS ABILIFY 5 MG one p.o. ABILIFY 5 496187 ARIPIPRAZOLE Inactive TABS q. day MG TABS CIPROFLOXACI Take one CIPROFLOXAC 377136 CIPROFLOXACIN Inactive N HCL 500 MG (1) IN HCL 500 HCL TABS tablet by MG TABS mouth twice a day PROMETHAZINE 1 tab by PROMETHAZIN 959752 PROMETHAZINE Inactive HCL 25 MG mouth E HCL 25 MG HCL TABS every 6 TABS hours as needed PHENTERMINE 1 po q am PHENTERMINE 271710 PHENTERMINE Inactive HCL 37.5 MG for wt. HCL 37.5 MG HCL TABS loss TABS AMARYL 1 MG 1 tab AMARYL 1 MG 520774 GLIMEPIRIDE Inactive TABS twice TABS daily METFORMIN 1 tablet METFORMIN 436569 METFORMIN HCL Inactive HCL 500 MG by mouth HCL 500 MG TABS twice TABS daily SPIRONOLACTO 1 tablet SPIRONOLACT 302521 SPIRONOLACTONE Inactive NE 25 MG TAB by mouth ONE 25 MG daily TAB POTASSIUM 2 capsule POTASSIUM POTASSIUM Inactive CHLORIDE CR by mouth CHLORIDE CR CHLORIDE 10 MEQ CPCR daily 10 MEQ CPCR LISINOPRIL 1 tablet LISINOPRIL 530054 LISINOPRIL Inactive 20 MG TABS by mouth 20 MG TABS daily DIFLUCAN 100 1 tablet DIFLUCAN 105659 FLUCONAZOLE Inactive MG TABS by mouth 100 MG TABS every other day for 2 doses DIFLUCAN 100 1 tablet DIFLUCAN 790897 FLUCONAZOLE Inactive MG TAB by mouth 100 MG TAB daily x 3 days PREDNISONE 2 tablets PREDNISONE 268754 PREDNISONE Inactive 20 MG TAB today, 20 MG TAB then 1 tablet days 2-4 VYVANSE 20 1 tablet VYVANSE 20 LISDEXAMFETAMI Inactive MG ORAL CAPS daily for MG ORAL NE DIMESYLATE binge CAPS eating disorder TRAMADOL HCL 1/2 po TRAMADOL 818616 TRAMADOL HCL Inactive 50 MG TABS tid with HCL 50 MG ES TABS Tylenol prn pain AMOXICILLIN 2 po BID AMOXICILLIN 443195 AMOXICILLIN Inactive 500 MG CAPS x 10 days 500 MG CAPS PREDNISONE 2 tabs PREDNISONE 675628 PREDNISONE Inactive 20 MG TAB daily for 20 MG TAB 3 days, 1 tab daily for 3 days, 1/2 tab daily for 2 days NITROFURANTO One NITROFURANT 7672983 NITROFURANTOIN Inactive IN MONOHYD capsule OIN MONOHYD [...] HGBA1C - Chemistry sodium, serum 140 mmol/L 484-318 7476/04/13 potassium, serum 3.9 mmol/L 3.5-5.2 chloride, serum [...] 198 10^3/MM^3 10*3/mm3 142-424 Lab Report: Chlamydia/GC APTIMA/[id number] - Lab chlamydia DNA probe NOT DETECTED NOT DETECTED Lab Report: Chlamydia/GC APTIMA/[id number] - Microbiology Neisseria gonorrhoeae DNA probe NOT DETECTED NOT DETECTED Lab Report: Comp. Metabolic Panel, Lipid Panel - Chemistry sodium, serum 136 mmol/L 083-409 7159/01/04 carbon dioxide, venous blood 27.0 mmol/L 21.0-32.0 potassium, serum 4.6 mmol/L 3.5-5.2 chloride, serum 98 mmol/L 98-107 blood glucose 174 mg/dL 65-110 urea nitrogen, blood 12 mg/dL 7-18 creatinine, serum 0.78 mg/dL 0.55-1.30 alanine aminotransferase (SGPT), serum 65 U/L 12-78 aspartate aminotransferase (SGOT), serum 34 U/L 15-37 calcium, serum 8.9 mg/dL 8.5-10.1 bilirubin, serum, total 0.40 mg/dL 0.00-1.00 cholesterol, serum 219 mg/dL 428-020 1900/01/04 triglyceride, serum, fasting 214 mg/dL 30-200 HDL [...] mg/g mg/g{creat} 0-29 sodium, serum 140 mmol/L 330-392 0416/07/21 potassium, serum 3.9 mmol/L 3.5-5.2 chloride, serum [...] 142-424 Encounters Code Encounter Date Provider Facility CPT-05776 Level 3 Est. Patient Indigo Sexton APRN [facility] 18:59:38 CDT CPT-46133 Level 3 Est. Patient [facility] 14:42:12 CDT -[facility] CPT-07575 Level 3 Est. Patient [facility] 22:18:20 CDT -[facility] CPT-49405 Level 3 Est. Patient [facility] 16:46:04 CDT -[facility] CPT-13206 Level 3 Est. Patient [facility] 15:39:53 CDT -[facility] CPT-54116 Level 3 Est. Patient Maite Sanchez MD PhD [facility] 13:33:34 CDT -[facility] CPT-49259 Level 3 Est. Patient [facility] 11:37:08 CDT -[facility] CPT-83146 Level 3 Est. Patient [facility] 17:13:29 GEOPHYSICAL ENGINEER -[facility] CPT-15837 Level 3 Est. Patient [facility] 18:42:44 CDT CPT-23067 Level 3 Est. Patient [facility] 16:25:39 CDT CPT-00920 Level 3 Est. Patient Casey ARCHIBALD [facility] 09:52:45 CDT -[facility] CPT-63272 Level 3 Est. Patient [facility] 11:03:29 GEOPHYSICAL ENGINEER -[facility] CPT-80490 Level 3 Est. Patient [facility] 11:03:08 GEOPHYSICAL ENGINEER -[facility] CPT-81890 Level 3 Est. Patient [facility] 14:33:31 CDT -[facility] CPT-52795 Level 3 Est. Patient Joseph Pineda [facility] 17:05:02 GEOPHYSICAL ENGINEER -[facility] CPT-43886 Level 3 Est. Patient Joseph Pineda [facility] 17:48:06 GEOPHYSICAL ENGINEER -[facility] CPT-05644 Level 3 Est. Patient Joseph Pineda [facility] 14:59:22 GEOPHYSICAL ENGINEER -[facility] CPT-63064 Level 3 Est. Patient Joseph Edwin [facility] - 21:45:56 GEOPHYSICAL ENGINEER [facility] [place] CPT-31362 Level 3 Est. Patient [facility] 21:29:50 CDT -[facility] CPT-38539 Level 3 Est. Patient [facility] 12:41:09 CDT -[facility] Procedures Code Procedure Name Date Entry Date Standard Description CPT-OV Office Visit 17:39:05 CDT CPT-OV Office Visit 15:19:50 CDT CPT-23582 Sono transvag pelvis non OB uterus ovaries cervix 18:04:34 CDT CPT-66266 Venipuncture Draw Fee 08:55:49 GEOPHYSICAL ENGINEER
--- OUTSIDE RECORDS SUMMARY | 2016-11-20 13:38 | External Medical Summary | Clinical Summary ---
:1965 Author Organization [facility] Address [address] [place] [address] Phone Allergies, Adverse Reactions, Alerts Allergy Name Reaction Description Start Date Severity Status Provider NKDA Critical No Longer Indigo Yokum FIELD CASHIER Active NKDA Critical Inactive Adrianna Elder Conditions [...] Indigo Other malaise 05/24 07/02 Yokum FIELD CASHIER and fatigue SLEEP APNEA, 327.23 Active Joseph [...] Indigo Hypopotassemia MILD 10/29 07/02 Yo FIELD CASHIER Diabetes, Type 250.00 Inactive Joseph Pineda Diabetes 2 06/27 06/27 Farooq DO mellitus without mention of complication, type II or unspecified type, not stated as uncontrolled Diabetes 250.02 Active Indigo Diabetes mellitus, type 06/27um FIELD CASHIER mellitus II, without mention uncontrolled of complication, [...] Resolved Indigo Routine gynecological 12/14 07/02 Yo FIELD CASHIER gynecological examination examination Postmenopausal 627.1 Resolved Indigo Postmenopausal bleeding 12/14 07/02 Youm FIELD CASHIER bleeding Screening for V76.51 Resolved Indigo Screening for malignant 12/26 07/02 Yokum FIELD CASHIER malignant neoplasms of neoplasms of colon colon Insomnia, 307.42 Active Indigo 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 Establish care V68.89 Resolved Indigo Encounters for or get 01/16 07/02 Yo FIELD CASHIER other specified acquainted administrative visit purpose Weakness, left 342.90 Active Indigo Hemiplegia, side of body 06/20 06/20 Yokum FIELD CASHIER unspecified, affecting unspecified side TIA 435.9 Active Indigo Unspecified 06/20 07/02 Yokum FIELD CASHIER transient cerebral ischemia Knee pain, 719.46 Active Indigo Pain in joint bilateral 06/20 07/02 Yokum FIELD CASHIER involving lower leg Bronchitis 490 Active Jillina Bronchitis, not 07/23 07/23 Frazell specified as FIELD CASHIER acute or chronic ABNORMAL VAGINAL ICD-626.9 Inactive Maite C Laura BLEEDING PhD SCABIES ICD-133.0 Inactive Maite C Laura MD PhD FATIGUE ICD-780.79 Inactive Indigo Yokum FIELD CASHIER OTH GENERAL ICD-V70.3 Inactive Maite C Laura MEDICAL MD PhD EXAMINATION ADMIN PURPOSES OTHER ABNORMAL ICD-790.29 Inactive Maite C Laura GLUCOSE MD PhD ACUTE BRONCHITIS ICD-466.0 Inactive Maite C Laura PhD HYPOKALEMIA, MILD ICD-276.8 Inactive Indigo Yokum FIELD CASHIER Sinusitis, ICD-461.1 Inactive Ismael Coyne frontal, acute Amandeep ONEAL Laryngitis, acute ICD-464.00 Inactive Ismael Coyne Amandeep ONEAL Routine ICD-V72.31 Inactive Indigo Yokum gynecological FIELD CASHIER examination Postmenopausal ICD-627.1 Inactive Indigo Yokum 2015 bleeding FIELD CASHIER Screening for ICD-V76.51 Inactive Indigo Yokum 2015 malignant FIELD CASHIER neoplasms of colon Establish care or ICD-V68.89 Inactive Indigo Yokum get acquainted FIELD CASHIER visit Medication List Medication Instructions Start Stop Generic NDC Status Provider Patient Date Date Name Instruction METOPROLOL 1 tab po METOPROLOL 46808927615 Active Sherice Active TARTRATE 25 MG bid TARTRATE Wilfredo RMA TABS AZITHROMYCIN 2 po qd 2 AZITHROMYCIN 60635976612 No Jillina Active 250 MG TABS x 1 day, 0 Longer Frazell then 1 1 Active FIELD CASHIER po qd x 6 4 days / 0 3 / 2 6 PREDNISONE 20 2 pills 2 PREDNISONE 15930164912 No Jillina Active MG TAB daily x 0 Longer Frazell 4 days 1 Active FIELD CASHIER 6 / 0 3 / 2 5 PIOGLITAZONE take one PIOGLITAZONE 74409220114 Active Maliheh Active HCL 30 MG ORAL a day HCL Ziglari TABS PASTORAL ASSISTANT JANUVIA 100 MG 1 tablet 2 SITAGLIPTIN 10416338334 No Indigo Active TABS by mouth 0 PHOSPHATE Longer Yokum daily 1 Active FIELD CASHIER 6 / 0 / 6 ATORVASTATIN 1 pill ATORVASTATIN 03292127499 Active Indigo Active CALCIUM 10 MG by mouth CALCIUM Yokum TABS nightly, FIELD CASHIER for choleste rol TROKENDI XR 100 1 tab TOPIRAMATE 73874817830 Active Indigo Active MG ORAL daily Yokum [id number] FIELD CASHIER ASPIRIN 81 MG 1 po qd ASPIRIN 94181303650 Active Indigo Active ORAL TABS Yokum FIELD CASHIER NITROFURANTOIN One 2 NITROFURANTOIN 66561389013 No Indigo Active MONOHYD MACRO capsule 0 MONOHYD MACRO Longer Yokum 100 MG CAPS BID for 1 Active FIELD CASHIER UTI 6 / 0 3 METFORMIN HCL 2 METFORMIN HCL 45273141030 Active Indigo Active 500 MG TB24 tablets Yokum by mouth FIELD CASHIER twice daily TRAMADOL HCL 50 1/2 po 2 TRAMADOL HCL 18654594439 No Jillina Active MG TABS tid with 0 Longer Frazell ES 1 Active FIELD CASHIER Tylenol 5 prn pain / 0 / 2 VYVANSE 20 MG 1 tablet 2 LISDEXAMFETAMIN 69357896453 No Jillina Active ORAL CAPS daily 0 E DIMESYLATE Longer Frazell for 1 Active FIELD CASHIER binge 5 eating / disorder 0 8 / 2 LASIX 20 MG TAB 2 tablet FUROSEMIDE 99611832325 Active Indigo Active by mouth Yokum daily FIELD CASHIER CELEBREX 200 MG 1 tablet CELECOXIB 93717167871 Active Joseph W Active CAPS by mouth Farooq DO daily with meals PREDNISONE 20 2 2 PREDNISONE 23445415368 No Joseph W Active MG TAB tablets 0 Longer Farooq DO today, 1 Active then 1 5 tablet / days 2-4 0 3 DIFLUCAN 100 MG 1 tablet 2 FLUCONAZOLE 87795275852 No Joseph W Active TAB by mouth 0 Longer Farooq DO daily x 1 Active 3 days 5 / 0 3 AMARYL 1 MG 1 tablet GLIMEPIRIDE 79399501328 Active Joseph W Active ORAL TABS orally Farooq DO twice daily DIFLUCAN 100 MG 1 tablet 2 FLUCONAZOLE 39956433185 No Joseph W Active TABS by mouth 0 Longer Farooq DO every 1 Active other 5 day for / 2 doses 0 1 / 2 3 ZOFRAN 4 MG 1 po ONDANSETRON HCL 77291738833 Active Joseph W Active TABS q6hr PRN Farooq DO Nausea PREDNISONE 20 2 tabs 2 PREDNISONE 51441689581 No Joseph W Active MG TAB daily 0 Longer Farooq DO for 3 1 Active days, 1 4 tab / daily 1 for 3 0 days, / 1/2 tab 2 daily 5 for 2 days AMOXICILLIN 500 2 po BID 2 AMOXICILLIN 42077587061 No Maite C Active MG CAPS x 10 0 Longer Madril days 1 Active PhD 0 / 2 0 LISINOPRIL 20 1 tablet 2 LISINOPRIL 86112381476 No Maite C Active MG TABS by mouth 0 Longer Madril daily 1 Active PhD 0 / 0 POTASSIUM 2 2 POTASSIUM 25666897069 No Joseph Pineda Active CHLORIDE CR 10 capsule 0 CHLORIDE Longer Farooq DO MEQ CPCR by mouth 1 Active daily 4 / 0 8 / 2 9 SPIRONOLACTONE 1 tablet 2 SPIRONOLACTONE 51787365316 No Joseph Pineda Active 25 MG TAB by mouth 0 Longer Farooq DO daily 1 Active 4 / 0 8 2 9 METFORMIN HCL 1 2 METFORMIN HCL 45310398763 No Joseph W Active 500 MG TABS tablet 0 Longer Farooq DO by mouth 1 Active twice 4 daily / 0 8 / 2 9 AMARYL 1 MG 1 tab 2 GLIMEPIRIDE 18066854411 No Joseph W Active TABS twice 0 Longer Farooq DO daily 1 Active 4 / 0 8 / 2 9 PHENTERMINE HCL 1 po q 2 PHENTERMINE HCL 99563106428 No Joseph W Active 37.5 MG TABS am for 0 Longer Farooq DO wt. loss 1 Active 3 / 1 2 / 2 3 PROMETHAZINE 1 tab by 2 PROMETHAZINE 69375835041 No Joseph W Active HCL 25 MG TABS mouth 0 HCL Longer Farooq DO every 6 1 Active hours as 3 needed / 0 9 / 0 9 CIPROFLOXACIN Take one 2 CIPROFLOXACIN 01452893769 No Joseph W Active HCL 500 MG TABS (1) 0 HCL Longer Farooq DO tablet 1 Active by mouth 3 twice a / day 0 9 / 0 9 ABILIFY 5 MG one p.o. 2 ARIPIPRAZOLE 15405052281 No Joseph W Active TABS q. day 0 Longer Farooq DO 1 Active 3 / 0 9 / 0 9 HYDROCHLOROTHIA 2 tabs 2 HYDROCHLOROTHIA 27626204040 No Joseph W Active ZIDE 25 MG TABS every 0 ZIDE Longer Farooq DO morning 1 Active 3 / 0 6 / 2 7 ABILIFY 2 MG 1 po q 2 ARIPIPRAZOLE 40785702611 No Joseph W Active TABS hs for 0 Longer Farooq DO major 1 Active depressi 3 on / 0 5 / 0 7 ADIPEX-P 37.5 1/2 tab 2 PHENTERMINE HCL 32041402964 No Casey Active MG CAPS po q am 0 Longer Leonarda for 1 Active PA weight 3 loss / 0 5 / 0 1 CIPRO 500 MG 1 tablet 2 CIPROFLOXACIN 38496948881 No Casey Active TAB by mouth 0 HCL Longer Leonarda twice 1 Active PA daily 3 / 0 5 / 0 1 NECON 1/35 (28) 1 po 2 NORETHINDRONE-E 40927192804 No Casey Active 1-35 MG-MCG daily 0 TH ESTRADIOL Longer Crapo TABS 1 Active PA 3 / 0 5 / 0 1 TRAMADOL HCL 50 1 po tid 2 TRAMADOL HCL 86359070903 No Casey Active MG TABS with ES 0 Longer Tylenol 1 Active PA 3 / 0 5 / 0 1 FLUCONAZOLE 100 one p.o. 2 FLUCONAZOLE 92513565988 No Casey Active MG TABS q. day 2 0 Longer Crapo days 1 Active PA 3 / 0 5 / 0 1 POTASSIUM 1 2 POTASSIUM 78534499749 No Casey Active CHLORIDE CR 10 capsule 0 CHLORIDE Longer MEQ CPCR by mouth 1 Active PA daily 3 / 0 5 / 0 1 IMIPRAMINE HCL Take 6 IMIPRAMINE HCL 33702575212 Active Joseph W Active 50 MG TABS tablets Farooq DO by mouth at bedtime DIFLUCAN 100 MG 1 tablet 2 FLUCONAZOLE 70635526254 No Joseph W Active TAB by mouth 0 Longer Farooq DO daily 1 Active 2 / 0 2 / 2 4 VERAPAMIL HCL 2 po bid VERAPAMIL HCL 45608796100 Active Joseph W Active CR 120 MG TAB Farooq DO CR PERMETHRIN 5 % apply 2 PERMETHRIN 27158199374 No Joseph W Active CREA neck to 0 Longer Farooq DO toes 1 Active tonight 2 and then / rinse 0 off in 1 morning. / repeat 2 at 7 0 days SEROQUEL XR 50 one p.o. 2 QUETIAPINE 71731277341 No Joseph W Active MG [id number] q. 0 FUMARATE Longer Farooq DO evening 1 Active 2 / 0 1 / 2 0 TRAMADOL HCL 50 1-2 2 TRAMADOL HCL 52821742265 No Joseph W Active MG TABS tablets 0 Longer Farooq DO every 1 Active 6-8 2 hours as / needed 0 for pain 1 / 2 0 ALPRAZOLAM 3 MG one p.o. ALPRAZOLAM 49420392510 Active Indigo Active [id number] q.h.s. Yokum FIELD CASHIER ALPRAZOLAM XR Take 1 2 ALPRAZOLAM 79977944451 No Joseph W Active [id number] tablet 0 VT53F-LAG Longer Farooq DO by mouth 1 Active at 1 bedtime / 1 1 / 2 9 DIFLUCAN 100 MG 1 tablet 2 FLUCONAZOLE 02406768325 No Joseph W Active TAB by mouth 0 Longer Farooq DO daily 1 Active 0 / 0 6 AMBIEN 10 MG 1 tab by ZOLPIDEM 20070370015 Active Afsaneh Active TAB mouth at TARTRATE Gericke, bedtime MA as needed for sleep DIFLUCAN 100 1 tablet DIFLUCAN 661380 FLUCONAZOLE Inactive MG TAB by mouth 100 MG TAB daily ALPRAZOLAM Take 1 ALPRAZOLAM ALPRAZOLAM Inactive XR [id number] tablet by XR [id number] mouth at [id number] bedtime TRAMADOL HCL 1-2 TRAMADOL 430456 TRAMADOL HCL Inactive 50 MG TABS tablets HCL 50 MG every 6-8 TABS hours as needed for pain SEROQUEL XR one p.o. SEROQUEL XR QUETIAPINE Inactive 50 MG q. 50 MG FUMARATE [id number] evening [id number] PERMETHRIN 5 apply PERMETHRIN 830498 PERMETHRIN Inactive % CREA neck to 5 % CREA toes tonight and then rinse off in morning. repeat at 7 days DIFLUCAN 100 1 tablet DIFLUCAN 105761 FLUCONAZOLE Inactive MG TAB by mouth 100 MG TAB daily POTASSIUM 1 capsule POTASSIUM POTASSIUM Inactive CHLORIDE CR by mouth CHLORIDE CR CHLORIDE 10 MEQ CPCR daily 10 MEQ CPCR FLUCONAZOLE one p.o. FLUCONAZOLE 958591 FLUCONAZOLE Inactive 100 MG TABS q. day 2 100 MG TABS days TRAMADOL HCL 1 po tid TRAMADOL 900743 TRAMADOL HCL Inactive 50 MG TABS with ES HCL 50 MG Tylenol TABS NECON 1/35 1 po NECON 35 NORETHINDRONE- Inactive (28) 1-35 daily (28) 1-35 ETH ESTRADIOL MG-MCG TABS MG-MCG TABS CIPRO 500 MG 1 tablet CIPRO 500 706316 CIPROFLOXACIN Inactive TAB by mouth MG TAB HCL twice daily ADIPEX-P 1/2 tab ADIPEX-P 791723 PHENTERMINE Inactive 37.5 MG CAPS po q am 37.5 MG HCL for CAPS weight loss ABILIFY 2 MG 1 po q hs ABILIFY 2 406835 ARIPIPRAZOLE Inactive TABS for major MG TABS depressio n HYDROCHLOROT 2 tabs HYDROCHLORO 359649 HYDROCHLOROTHI Inactive HIAZIDE 25 every THIAZIDE 25 AZIDE MG TABS morning MG TABS ABILIFY 5 MG one p.o. ABILIFY 5 542740 ARIPIPRAZOLE Inactive TABS q. day MG TABS CIPROFLOXACI Take one CIPROFLOXAC 468458 CIPROFLOXACIN Inactive N HCL 500 MG (1) IN HCL 500 HCL TABS tablet by MG TABS mouth twice a day PROMETHAZINE 1 tab by PROMETHAZIN 453180 PROMETHAZINE Inactive HCL 25 MG mouth E HCL 25 MG HCL TABS every 6 TABS hours as needed PHENTERMINE 1 po q am PHENTERMINE 878776 PHENTERMINE Inactive HCL 37.5 MG for wt. HCL 37.5 MG HCL TABS loss TABS AMARYL 1 MG 1 tab AMARYL 1 MG 036885 GLIMEPIRIDE Inactive TABS twice TABS daily METFORMIN 1 tablet METFORMIN 856174 METFORMIN HCL Inactive HCL 500 MG by mouth HCL 500 MG TABS twice TABS daily SPIRONOLACTO 1 tablet SPIRONOLACT 484599 SPIRONOLACTONE Inactive NE 25 MG TAB by mouth ONE 25 MG daily TAB POTASSIUM 2 capsule POTASSIUM POTASSIUM Inactive CHLORIDE CR by mouth CHLORIDE CR CHLORIDE 10 MEQ CPCR daily 10 MEQ CPCR LISINOPRIL 1 tablet LISINOPRIL 177234 LISINOPRIL Inactive 20 MG TABS by mouth 20 MG TABS daily DIFLUCAN 100 1 tablet DIFLUCAN 400965 FLUCONAZOLE Inactive MG TABS by mouth 100 MG TABS every other day for 2 doses DIFLUCAN 100 1 tablet DIFLUCAN 240711 FLUCONAZOLE Inactive MG TAB by mouth 100 MG TAB daily x 3 days PREDNISONE 2 tablets PREDNISONE 440418 PREDNISONE Inactive 20 MG TAB today, 20 MG TAB then 1 tablet days 2-4 VYVANSE 20 1 tablet VYVANSE 20 LISDEXAMFETAMI Inactive MG ORAL CAPS daily for MG ORAL NE DIMESYLATE binge CAPS eating disorder TRAMADOL HCL 1/2 po TRAMADOL 078798 TRAMADOL HCL Inactive 50 MG TABS tid with HCL 50 MG ES TABS Tylenol prn pain JANUVIA 100 1 tablet JANUVIA 100 SITAGLIPTIN Inactive MG TABS by mouth MG TABS PHOSPHATE daily AMOXICILLIN 2 po BID AMOXICILLIN 722520 AMOXICILLIN Inactive 500 MG CAPS x 10 days 500 MG CAPS PREDNISONE 2 tabs PREDNISONE 511106 PREDNISONE Inactive 20 MG TAB daily for 20 MG TAB 3 days, 1 tab daily for 3 days, 1/2 tab daily for 2 days NITROFURANTO One NITROFURANT 3674504 NITROFURANTOIN Inactive IN MONOHYD capsule OIN MONOHYD MONOHYD MACRO MACRO 100 MG BID for MACRO 100 CAPS UTI MG CAPS PREDNISONE 2 pills PREDNISONE 674460 PREDNISONE Inactive 20 MG TAB daily x 4 20 MG TAB days AZITHROMYCIN 2 po qd x AZITHROMYCI 2115708 AZITHROMYCIN Inactive 250 MG TABS 1 day, [...] CBC W/DIFF, B-Type Natriuretic Peptide - Hematology monocytes as percent of blood 7.5 % [...] % 11.6-14.8 platelet count 214 10^3/MM^3 10*3/mm3 362-684 3454/03/21 leukocyte count, blood 6.1 10^3/MM^3 10*3/mm3 4.6-10.2 neutrophils as percent of blood 55.3 % 42.2-75.2 leukocytes Lab Report: CBC, Comp. Metabolic Panel, HGBA1C - Chemistry sodium, serum 140 mmol/L 437-211 3446/04/13 potassium, serum 3.9 mmol/L 3.5-5.2 chloride, serum [...] 198 10^3/MM^3 10*3/mm3 142-424 Lab Report: Chlamydia/GC APTIMA/87190 - Lab chlamydia DNA probe NOT DETECTED NOT DETECTED Lab Report: Chlamydia/GC APTIMA/96750 - Microbiology Neisseria gonorrhoeae DNA probe NOT DETECTED NOT DETECTED Lab Report: Comp. Metabolic Panel, Lipid Panel - Chemistry sodium, serum 136 mmol/L 022-297 2788/01/04 carbon dioxide, venous blood 27.0 mmol/L 21.0-32.0 potassium, serum 4.6 mmol/L 3.5-5.2 chloride, serum 98 mmol/L 98-107 blood glucose 174 mg/dL 65-110 urea nitrogen, blood 12 mg/dL 7-18 creatinine, serum 0.78 mg/dL 0.55-1.30 alanine aminotransferase (SGPT), serum 65 U/L 12-78 aspartate aminotransferase (SGOT), serum 34 U/L 15-37 calcium, serum 8.9 mg/dL 8.5-10.1 bilirubin, serum, total 0.40 mg/dL 0.00-1.00 cholesterol, serum 219 mg/dL 284-383 7642/01/04 triglyceride, serum, fasting 214 mg/dL 30-200 HDL [...] mg/g mg/g{creat} 0-29 sodium, serum 140 mmol/L 376-381 2320/07/21 potassium, serum 3.9 mmol/L 3.5-5.2 chloride, serum [...] % 11.6-14.8 platelet count 234 10^3/MM^3 10*3/mm3 631-812 6417/08/12 mean corpuscular hemoglobin, RBC 30.6 pg 27.0-31.2 [...] Yes Encounters Code Encounter Date Provider Facility CPT-69600 Level 3 Est. Patient Faby Marino [facility] 14:40:56 CDT [facility] CPT-56192 Level 4 Est. Patient Arnold Berrios [facility] 17:29:53 LANDSCAPE DESIGNER [facility] CPT-63757 Level 4 Est. Patient [facility] 09:51:54 LANDSCAPE DESIGNER CPT-37660 Level 3 Est. Patient [facility] 18:59:38 CDT CPT-33445 Level 3 Est. Patient Joseph Trivedi DO [facility] 14:42:12 CDT -[facility] CPT-26407 Level 3 Est. Patient Joseph W [facility] 22:18:20 CDT -[facility] CPT-70871 Level 3 Est. Patient Joseph Pineda [facility] 16:46:04 CDT -[facility] CPT-87798 Level 3 Est. Patient Joseph Pineda [facility] 15:39:53 CDT -[facility] CPT-31460 Level 3 Est. Patient Maite Sanchez MD PhD [facility] 13:33:34 CDT -[facility] CPT-85790 Level 3 Est. Patient Joseph Pineda [facility] 11:37:08 CDT -[facility] CPT-04465 Level 3 Est. Patient Joseph Edwin [facility] 17:13:29 LANDSCAPE DESIGNER -[facility] CPT-67189 Level 3 Est. Patient Joseph dEwin [facility] 18:42:44 CDT CPT-56137 Level 3 Est. Patient [place] [facility] 16:25:39 CDT CPT-91113 Level 3 Est. Patient Casey Brower [facility] 09:52:45 CDT -[facility] CPT-56168 Level 3 Est. Patient Joseph Edwin [facility] 11:03:29 LANDSCAPE DESIGNER -[facility] CPT-49961 Level 3 Est. Patient Joseph Edwin [facility] 11:03:08 LANDSCAPE DESIGNER -[facility] CPT-22865 Level 3 Est. Patient Joseph Edwin [facility] 14:33:31 CDT -[facility] CPT-62283 Level 3 Est. Patient [facility] 17:05:02 LANDSCAPE DESIGNER -[facility] CPT-85076 Level 3 Est. Patient [facility] 17:48:06 LANDSCAPE DESIGNER -[facility] CPT-76833 Level 3 Est. Patient [place] Edwin [facility] 14:59:22 LANDSCAPE DESIGNER -[facility] CPT-42814 Level 3 Est. Patient [facility] - 21:45:56 LANDSCAPE DESIGNER Jose [facility] CPT-34543 Level 3 Est. Patient Joseph Pineda [facility] 21:29:50 CDT -[facility] CPT-10393 Level 3 Est. Patient Joseph Trivedi [facility] 12:41:09 CDT -[facility] Procedures Code Procedure Name Date Entry Date Standard Description CPT-27646 Chest 2V Frontal and Lat 14:47:43 CDT CPT-JTINJ Asp/Joint Injection 09:51:53 LANDSCAPE DESIGNER CPT-OV Office Visit 17:39:05 CDT CPT-OV Office Visit 15:19:50 CDT CPT-90860 Sono transvag pelvis non OB uterus ovaries cervix 18:04:34 CDT CPT-02855 Venipuncture Draw Fee 08:55:49 LANDSCAPE DESIGNER
--- OUTSIDE RECORDS SUMMARY | 2016-11-20 13:39 | External Medical Summary ---
:1965 Author Organization [facility] Summary purpose TRANSITION OF CARE AUTO GENERATION Chief Complaint and Reason for Visit Admit Diagnosis 1 HYSTEROSCOPY D & C Problem list No authorized problems tracked for continuity of care are available for this visit. Encounters The following conditions tracked for encounter diagnoses were recorded for this visit: Finding or Diagnosis Status Certainty Chronicity Onset *POSTMENOPAUSAL BLEEDING Active Medications No medications recorded for this patient visit Allergies, adverse reactions, alerts Allergen Category Ingredient Status Reaction Severity Onset No known No known No known Confirmed or allergies allergies allergies Verified Immunizations No immunizations recorded for this patient visit Relevant diagnostic tests and/or laboratory data RESULTS Routine Urinalysis 24-02-397716:15:00 Result Normal Range Units Color YELLOW Clarity Clear Specific [place] 1.010 1.003-1.035 pH 6.5 4.5-8.0 Glucose NEGATIVE Bilirubin NEGATIVE Ketones NEGATIVE Protein NEGATIVE Urobilinogen 0.2 0-0.2 E.U./dL Nitrites NEGATIVE Blood NEGATIVE Leukocytes NEGATIVE WBCs No WBC's Seen RBCs No RBC's Seen. Squamous Epithelial Few Chemistry [id number]:40:00 Result Normal Range Units Sodium 138 134-145 mEq/l Potassium 4.1 3.5-5.1 mEq/l Chloride 100 98-107 mEq/l CO2 27.7 22-28 mEq/l Glucose H 162 70-105 mg/dl BUN 14 7-18 mg/dl Creatinine 0.87 0.6-1.0 mg/dl Calcium 8.6 8.4-10.2 mg/dl TP - Total Protein 7.3 6.0-8.3 g/dl Albumin 3.8 3.5-5 g/dl Bilirubin - Total 0.5 0.1-1.0 mg/dl AST 24 10-42 IU/L ALT 48 12-65 IU/L ALP H 118 25-72 IU/L Osmolality L 279.7 280-300 mOsm/L Albumin/Globulin Ratio 1.1 0-8 Anion GAP 10.3 8-16 BUN/Creatinine Ratio 16.1 10-20 Estimated GFR 69 >=60 mL/min/1.7 Hematology :40:00 Result Normal Range Units WBC 5.8 4.8-10.8 103/uL RBC 4.5 4.2-5.4 106/uL HGB 13.6 12.0-16.0 g/dl HCT 39.5 36.9-47.0 % MCV 87.8 81-99 FL MCH 30.2 27-31 pg MCHC 34.4 33-37 g/dl RDW 12.9 11.5-15.5 % PLT 196 130-400 103/uL MPV 10.2 7.3-10.4 FL Special Chemistry :40:00 Result Normal Range Units HCG (Qualitative) Negative Body Fluid :15:00 Result Normal Range Units pH 6.5 4.5-8.0 Radiology Results :40:00 Result Normal Range Units MPV 10.2 7.3-10.4 FL History of procedures No procedures recorded for this patient visit. Functional status Functional Status Finding Observation Time Hearing Prob Loc none [id number]:01 Vision Problems yes 69-14-282985:01 Vision Correct Dev glasses 35-91-888272:01 Ambulation Asst Dev none 89-87-333892:01 Range of Motion full 42-48-197234:50 Muscle Strength RUE 5 ROM full resist :50 Muscle Strength RLE 5 ROM full resist :50 Muscle Strength LUE 5 ROM full resist 44-94-236498:50 Muscle Strength LLE 5 ROM full resist 45-86-840824:50 Transfers assist x 1 77-02-699403:50 Ambulation in room 73-77-343020:50 Balance unsteady :50 Bathing Assistance none :01 Eating Assistance none :01 Dressing Assistance none :01 Toileting Assistance none 83-02-224687:01 Transfer Assistance none :01 Decline Slf Care/Mob no 30-10-984689:01 Phys Cond Stable yes 87-34-828859:01 Nutrition normal 70-05-306013:50 Diet regular 56-90-712490:50 Oral Cavity moist and intact :50 Teeth missing (specify) :50 Dental Hygiene good :50 Abdomen Appearance obese :50 Abdomen soft :50 Bowel Sounds present :50 NG Tube no :50 Feeding Tube none :50 Buck no :50 Cont Bladder Irr no :50 Ostomy no :50 Stool normal :50 Urination incontinent :50 Quality sym/unlabored :50 Cough absent :50 Secretions no :50 Breath Sounds RUL clear :50 Breath Sounds RML clear :50 Breath Sounds RLL clear :50 Breath Sounds ADE clear :50 Breath Sounds LLL clear :50 Airway natural :50 Chest Tube no :50 Oxygen no :45 C-PAP no :50 BI-PAP no :50 Temp >100.4 no :50 Temp <96.8 no :50 Chills with rigors no :50 HR > 90bpm no :50 Respirations > 20 no :50 Systolic <90 no :50 headache stiff neck no :50 Rapid Resp no :50 IV Site Location Rt ac space :50 IV Type peripheral :50 IV Site Information discontinued :50 IV Site Start Attmpt 1 times :35 IV Site Mynor 18 :50 IV Site Appearance WNL [id number]:50 IV Site Color clear 22-25-677449:50 IV Site Patent yes 10-97-051561:50 Dressing Type occlusive :50 Nursing Note pt ambulatory to private vehicle. pt in stable condition to go home. discharge :10 paperwork and prescription in hand. no questions about home instructions. to drive pt home. Cognitive Status Finding Observation Time Learning Ability comprehends well : Neurological no : Psychological no : Physical no : Hearing no : Legal File Clerk Needed no : Sign Language no : Emotional no : Vision yes : [place] no :00 Financial no : Vital signs Type Value Date Respiration Rate 18breaths per minute 05-31-177473:45 Pulse 91beats per minute :45 Oxygen Saturation 95% 51-94-863043:45 BP Systolic 106mmHg 29-36-646781:45 BP Diastolic 67mmHg 22-18-972710:45 Temperature 97.6F 46-46-267279:50 Height 62inches 04-73-107866:56 Weight 240LB 95-02-535571:56 Social history Type Value Smoking Status FORMER SMOKER Treatment Plan No treatment plan text is available for this visit. Hospital discharge instructions Discharge Date/Time 12/29/14 1110 Accompanied By desire Relationship spouse/signif other Dismissal Condition good Disposition on DC home Valuables no Valuable Type jewelry (describe) Comment: 1 multi colored bracelet, 1 silver colored wedding ring DC Inst/Educ Give yes Exit Care Educ Given yes Med/Side Effects Rev yes PNE Vac 2013 Flu Vac 2013 Tetanus Vac unknown Diet Explained yes Follow up appt already scheduled Follow Up Appt D/T 01/04/15 1030
--- OUTSIDE RECORDS SUMMARY | 2016-11-20 13:39 | External Medical Summary | Clinical Summary ---
:1965 Author Organization [facility] Address [address] [address] Phone Allergies, Adverse Reactions, Alerts Allergy Name Reaction Description Start Date Severity Status Provider NKDA Critical Active Indigo Yonickieum SPRAYER LEATHER NKDA Critical No Longer Indigo Yokum SPRAYER LEATHER Active NKDA Critical Inactive Adrianna Elder Conditions [...] Resolved Indigo Other malaise 05/24 07/02 Yokum SPRAYER LEATHER and fatigue SLEEP APNEA, 327.23 Active Joseph Pineda Obstructive OBSTRUCTIVE, 06/27 06/27 Farooq DO sleep apnea MILD (adult) (pediatric) OVERWEIGHT 278.02 Inactive Joseph Pineda Overweight 06/28 06/28 Farooq DO Obesity 278.00 Active Indigo Obesity, 06/28 10/18 Yokum SPRAYER LEATHER unspecified OTH GENERAL V70.3 Resolved Maite Gutierrez Other general MEDICAL Laura ONEAL medical EXAMINATION PhD examination for ADMIN PURPOSES administrative purposes OTHER ABNORMAL 790.29 Resolved Maite C Other abnormal GLUCOSE 05/20 Laura ONEAL glucose PhD ACUTE 466.0 Resolved Maite C Acute BRONCHITIS 09/02 Laura ONEAL bronchitis PhD DEPENDENT 782.3 Resolved Indigo Edema EDEMA, LEGS, 10/29 10/18 Yokum SPRAYER LEATHER BILATERAL HYPOKALEMIA, 276.8 Resolved Indigo Hypopotassemia MILD 10/29 07/02 Youm SPRAYER LEATHER Diabetes, Type 250.00 Inactive Joseph Pineda Diabetes 2 06/27 06/27 Farooq DO mellitus without mention of complication, type II or unspecified type, not stated as uncontrolled Diabetes 250.02 Resolved Indigo Diabetes mellitus, type 06/27 SPRAYER LEATHER mellitus II, without mention uncontrolled of complication, [...] Resolved Indigo Routine gynecological 12/14 07/02 Yo SPRAYER LEATHER gynecological examination examination Postmenopausal 627.1 Resolved Indigo Postmenopausal bleeding 12/14 SPRAYER LEATHER bleeding Screening for V76.51 Resolved Indigo Screening for malignant 12/26 07/02 Yokum SPRAYER LEATHER malignant neoplasms of neoplasms of colon colon Insomnia, 307.42 Active Indigo 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 LEATHER disorder of initiating or maintaining sleep Establish care V68.89 Resolved Indigo Encounters for or get 01/16 07/02 Yo SPRAYER LEATHER other specified acquainted administrative visit purpose Weakness, left 342.90 Resolved Indigo Hemiplegia, side of body 06/20 10/18 Yokum SPRAYER LEATHER unspecified, affecting unspecified side TIA 435.9 Active Indigo Unspecified 06/20 07/02 Yokum SPRAYER LEATHER transient cerebral ischemia Knee pain, 719.46 Active Indigo Pain in joint bilateral 06/20 10/18 Yokum SPRAYER LEATHER involving lower leg Bronchitis 490 Resolved Indigo Bronchitis, not 07/23 10/18 Yokum SPRAYER LEATHER specified as acute or chronic Diabetes 357.2 Active Maliheh Polyneuropathy mellitus, 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BOGGER OPERATOR 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y Knee pain, 719.46 Active Indigo Pain in joint right 06/20 10/18 Yokum SPRAYER LEATHER involving lower leg Jesi 112.3 Active Indigo Candidiasis of intertrigo 10/09 10/18 Yokum SPRAYER LEATHER skin and nails Hyperlipidemia 272.4 Active Anne Other and 12/24 12/24 Neil unspecified RMA hyperlipidemia Incontinence, 788.33 Active Indigo Mixed mixed, 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 SPRAYER LEATHER incontinence urge/stress (female) (male) Female stress 625.6 Active Yury AnthonyCarlos Enrique Stress incontinence 01/03 01/03 Cy patel MD female ABNORMAL VAGINAL ICD-626.9 Inactive Maite Sanchez BLEEDING PhD SCABIES ICD-133.0 Inactive Maite Sanchez PhD FATIGUE ICD-780.79 Inactive Indigo Yokum SPRAYER LEATHER OTH GENERAL ICD-V70.3 Inactive Maite Sanchez MEDICAL PhD EXAMINATION ADMIN PURPOSES OTHER ABNORMAL ICD-790.29 Inactive Maite Sanchez GLUCOSE PhD ACUTE BRONCHITIS ICD-466.0 Inactive Maite Matt Sanchez PhD DEPENDENT EDEMA, ICD-782.3 Inactive Indigo Yokum LEGS, BILATERAL SPRAYER LEATHER HYPOKALEMIA, MILD ICD-276.8 Inactive Indigo Yokum SPRAYER LEATHER Diabetes mellitus, ICD-250.02 Inactive Indigo Yokum type II, SPRAYER LEATHER uncontrolled Sinusitis, ICD-461.1 Inactive Ismael Coyne frontal, acute Amandeep ONEAL Laryngitis, acute ICD-464.00 Inactive Ismael Coyne Amandeep ONEAL Routine ICD-V72.31 Inactive Indigo Yokum gynecological SPRAYER LEATHER examination Postmenopausal ICD-627.1 Inactive Indigo Yokum 2015 bleeding SPRAYER LEATHER Screening for ICD-V76.51 Inactive Indigo Yokum 2015 malignant SPRAYER LEATHER neoplasms of colon Establish care or ICD-V68.89 Inactive Indigo Yokum get acquainted SPRAYER LEATHER visit Weakness, left ICD-342.90 Inactive Indigo Yokum side of body SPRAYER LEATHER Bronchitis ICD-490 Inactive Indigo Yokum SPRAYER LEATHER Medication List Medication Instructions Start Stop Generic NDC Status Provider Patient Date Date Name Instruction METFORMIN 2 tablets METFORMIN 14841614527 No Indigo Active HCL 500 MG by mouth HCL Longer Yokum TB24 twice Active SPRAYER LEATHER daily AMARYL 1 MG 1 tablet GLIMEPIRID 29900628266 No Indigo Active ORAL TABS orally E Longer Yokum twice Active SPRAYER LEATHER daily NYSTATIN apply to NYSTATIN 60566123952 Active Indigo Active 930951 rash TID Yokum UNIT/GM PRN SPRAYER LEATHER CREA TROKENDI XR 2 tab TOPIRAMATE 93936998111 Active Malihe Active 100 MG ORAL daily h [id number] Ziglar i BOGGER OPERATOR METOPROLOL 1 tab po METOPROLOL 26439605333 Active Indigo Active TARTRATE 25 bid TARTRATE Yokum MG TABS SPRAYER LEATHER AZITHROMYCI 2 po qd x AZITHROMYC 89284244818 No Jillin Active N 250 MG 1 day, IN Longer a TABS then 1 po Active Frazel qd x 4 l SPRAYER LEATHER days PREDNISONE 2 pills PREDNISONE 08883764005 No Jillin Active 20 MG TAB daily x 4 Longer a days Active Frazel l SPRAYER LEATHER PIOGLITAZON take one PIOGLITAZO 73882151595 Active Malihe Active E HCL 30 MG a day NE HCL h ORAL TABS Ziglar i BOGGER OPERATOR JANUVIA 100 1 tablet SITAGLIPTI 73809612419 No Indigo Active MG TABS by mouth N Longer Yokum daily PHOSPHATE Active SPRAYER LEATHER ATORVASTATI 1 pill by ATORVASTAT 62406840179 Active Indigo Active N CALCIUM mouth IN CALCIUM Yokum 10 MG TABS nightly, SPRAYER LEATHER for cholester ol ASPIRIN 81 1 po qd ASPIRIN 88917520255 Active Indigo Active MG ORAL Yokum TABS SPRAYER LEATHER NITROFURANT One NITROFURAN 78235040303 No Indigo Active OIN MONOHYD capsule TOIN Longer Yokum MACRO 100 BID for MONOHYD Active SPRAYER LEATHER MG CAPS UTI MACRO TRAMADOL 1/2 po TRAMADOL 20553376753 No Jillin Active HCL 50 MG tid with HCL Longer a TABS ES Active Frazel Tylenol l SPRAYER LEATHER prn pain VYVANSE 20 1 tablet LISDEXAMFE 55636212979 No Jillin Active MG ORAL daily for TAMINE Longer a CAPS binge DIMESYLATE Active Frazel eating l SPRAYER LEATHER disorder LASIX 20 MG 2 tablet FUROSEMIDE 35257699788 Active Indigo Active TAB by mouth Yokum daily SPRAYER LEATHER CELEBREX 1 tablet CELECOXIB 11804386021 Active Indigo Active 200 MG CAPS by mouth Yokum daily SPRAYER LEATHER with meals PREDNISONE 2 tablets PREDNISONE 47733055006 No Joseph Active 20 MG TAB today, Longer W Farooq then 1 Active DO tablet days 2-4 DIFLUCAN 1 tablet FLUCONAZOL 46903633964 No Joseph Active 100 MG TAB by mouth E Longer W Farooq daily x 3 Active DO days DIFLUCAN 1 tablet FLUCONAZOL 89639930337 No Joseph Active 100 MG TABS by mouth E Longer W Farooq every Active DO other day for 2 doses ZOFRAN 4 MG 1 po q6hr ONDANSETRO 40814522101 Active Joseph Active TABS PRN N HCL W Farooq Nausea DO PREDNISONE 2 tabs PREDNISONE 44942679984 No Joseph Active 20 MG TAB daily for Longer W Farooq 3 days, 1 Active DO tab daily for 3 days, 1/2 tab daily for 2 days AMOXICILLIN 2 po BID AMOXICILLI 08293341561 No Maite C Active 500 MG CAPS x 10 days N Longer Madril Active PhD LISINOPRIL 1 tablet LISINOPRIL 73121191428 No Maite C Active 20 MG TABS by mouth Longer Madril daily Active PhD POTASSIUM 2 capsule POTASSIUM 75184392200 No Joseph Active CHLORIDE CR by mouth CHLORIDE Longer W Farooq 10 MEQ CPCR daily Active DO SPIRONOLACT 1 tablet SPIRONOLAC 58689385658 No Joseph Active ONE 25 MG by mouth TONE Longer W Farooq TAB daily Active DO METFORMIN 1 tablet METFORMIN 84931771998 No Joseph Active HCL 500 MG by mouth HCL Longer W Farooq TABS twice Active DO daily AMARYL 1 MG 1 tab GLIMEPIRID 91446927118 No Joseph Active TABS twice E Longer W Farooq daily Active DO PHENTERMINE 1 po q am PHENTERMIN 19321536963 No Joseph Active HCL 37.5 MG for wt. E HCL Longer W Farooq TABS loss Active DO PROMETHAZIN 1 tab by PROMETHAZI 10588726454 No Joseph Active E HCL 25 MG mouth NE HCL Longer W Farooq TABS every 6 Active DO hours as needed CIPROFLOXAC Take one CIPROFLOXA 99003272109 No Joseph Active IN HCL 500 (1) DELORES HCL Longer W Farooq MG TABS tablet by Active DO mouth twice a day ABILIFY 5 one p.o. ARIPIPRAZO 85105377122 No Joseph Active MG TABS q. day LE Longer W Farooq Active DO HYDROCHLORO 2 tabs HYDROCHLOR 23533869828 No Joseph Active THIAZIDE 25 every OTHIAZIDE Longer W Farooq MG TABS morning Active DO ABILIFY 2 1 po q hs ARIPIPRAZO 65792648968 No Joseph Active MG TABS for major LE Longer W Farooq depressio Active DO n ADIPEX-P 1/2 tab PHENTERMIN 67588496757 No Casey Active 37.5 MG po q am E HCL Longer Leonarda CAPS for Active PA weight loss CIPRO 500 1 tablet CIPROFLOXA 06997547990 No Casey Active MG TAB by mouth DELORES HCL Longer Neligh twice Active PA daily NECON 1/35 1 po NORETHINDR 84240858100 No Casey Active (28) 1-35 daily ONE-ETH Longer Neligh MG-MCG TABS ESTRADIOL Active PA TRAMADOL 1 po tid TRAMADOL 14694553368 No Casey Active HCL 50 MG with ES HCL Longer Neligh TABS Tylenol Active PA FLUCONAZOLE one p.o. FLUCONAZOL 01137905086 No Casey Active 100 MG TABS q. day 2 E Longer Neligh days Active PA POTASSIUM 1 capsule POTASSIUM 27601014168 No Casey Active CHLORIDE CR by mouth CHLORIDE Longer 10 MEQ CPCR daily Active PA IMIPRAMINE Take 6 IMIPRAMINE 93142591665 Active Indigo Active HCL 50 MG tablets HCL Yokum TABS by mouth SPRAYER LEATHER at bedtime DIFLUCAN 1 tablet FLUCONAZOL 68928976118 No Joseph Active 100 MG TAB by mouth E Longer W Farooq daily Active DO VERAPAMIL 2 po bid VERAPAMIL 02147443363 Active Indigo Active HCL CR 120 HCL Yokum MG TAB CR SPRAYER LEATHER PERMETHRIN apply PERMETHRIN 20729337148 No Joseph Active 5 % CREA neck to Longer W Farooq toes Active DO tonight and then rinse off in morning. repeat at 7 days SEROQUEL XR one p.o. QUETIAPINE 00450069521 No Joseph Active 50 MG q. FUMARATE Longer W Farooq [id number] evening Active DO TRAMADOL 1-2 TRAMADOL 85734054571 No Joseph Active HCL 50 MG tablets HCL Longer W Farooq TABS every 6-8 Active DO hours as needed for pain ALPRAZOLAM one p.o. ALPRAZOLAM 28555952372 Active Indigo Active 3 MG q.h.s. Yokum [id number] SPRAYER LEATHER ALPRAZOLAM Take 1 ALPRAZOLAM 34521272823 No Joseph Active XR tablet by [id number] Longer W Farooq [id number] mouth at Active DO bedtime DIFLUCAN 1 tablet FLUCONAZOL 57625539960 No Joseph Active 100 MG TAB by mouth E Longer W Farooq daily Active DO AMBIEN 10 1 tab by ZOLPIDEM 96552993990 Active Indigo Active MG TAB mouth at TARTRATE Yokum bedtime SPRAYER LEATHER as needed for sleep DIFLUCAN 100 1 tablet DIFLUCAN 442095 FLUCONAZOLE Inactive MG TAB by mouth 100 MG TAB daily ALPRAZOLAM Take 1 ALPRAZOLAM ALPRAZOLAM Inactive XR [id number] tablet by XR [id number] mouth at [id number] bedtime TRAMADOL HCL 1-2 TRAMADOL 912520 TRAMADOL HCL Inactive 50 MG TABS tablets HCL 50 MG every 6-8 TABS hours as needed for pain SEROQUEL XR one p.o. SEROQUEL XR QUETIAPINE Inactive 50 MG q. 50 MG FUMARATE [id number] evening [id number] PERMETHRIN 5 apply PERMETHRIN 507899 PERMETHRIN Inactive % CREA neck to 5 % CREA toes tonight and then rinse off in morning. repeat at 7 days DIFLUCAN 100 1 tablet DIFLUCAN 193287 FLUCONAZOLE Inactive MG TAB by mouth 100 MG TAB daily POTASSIUM 1 capsule POTASSIUM POTASSIUM Inactive CHLORIDE CR by mouth CHLORIDE CR CHLORIDE 10 MEQ CPCR daily 10 MEQ CPCR FLUCONAZOLE one p.o. FLUCONAZOLE 343358 FLUCONAZOLE Inactive 100 MG TABS q. day 2 100 MG TABS days TRAMADOL HCL 1 po tid TRAMADOL 186305 TRAMADOL HCL Inactive 50 MG TABS with ES HCL 50 MG Tylenol TABS NECON 1/35 1 po NECON 1/35 NORETHINDRONE- Inactive (28) 1-35 daily (28) 1-35 ETH ESTRADIOL MG-MCG TABS MG-MCG TABS CIPRO 500 MG 1 tablet CIPRO 500 923822 CIPROFLOXACIN Inactive TAB by mouth MG TAB HCL twice daily ADIPEX-P 1/2 tab ADIPEX-P 887359 PHENTERMINE Inactive 37.5 MG CAPS po q am 37.5 MG HCL for CAPS weight loss ABILIFY 2 MG 1 po q hs ABILIFY 2 037431 ARIPIPRAZOLE Inactive TABS for major MG TABS depressio n HYDROCHLOROT 2 tabs HYDROCHLORO 220469 HYDROCHLOROTHI Inactive HIAZIDE 25 every THIAZIDE 25 AZIDE MG TABS morning MG TABS ABILIFY 5 MG one p.o. ABILIFY 5 464024 ARIPIPRAZOLE Inactive TABS q. day MG TABS CIPROFLOXACI Take one CIPROFLOXAC 071601 CIPROFLOXACIN Inactive N HCL 500 MG (1) IN HCL 500 HCL TABS tablet by MG TABS mouth twice a day PROMETHAZINE 1 tab by PROMETHAZIN 096017 PROMETHAZINE Inactive HCL 25 MG mouth E HCL 25 MG HCL TABS every 6 TABS hours as needed PHENTERMINE 1 po q am PHENTERMINE 293317 PHENTERMINE Inactive HCL 37.5 MG for wt. HCL 37.5 MG HCL TABS loss TABS AMARYL 1 MG 1 tab AMARYL 1 MG 796105 GLIMEPIRIDE Inactive TABS twice TABS daily METFORMIN 1 tablet METFORMIN 614727 METFORMIN HCL Inactive HCL 500 MG by mouth HCL 500 MG TABS twice TABS daily SPIRONOLACTO 1 tablet SPIRONOLACT 710369 SPIRONOLACTONE Inactive NE 25 MG TAB by mouth ONE 25 MG daily TAB POTASSIUM 2 capsule POTASSIUM POTASSIUM Inactive CHLORIDE CR by mouth CHLORIDE CR CHLORIDE 10 MEQ CPCR daily 10 MEQ CPCR LISINOPRIL 1 tablet LISINOPRIL 539372 LISINOPRIL Inactive 20 MG TABS by mouth 20 MG TABS daily DIFLUCAN 100 1 tablet DIFLUCAN 19760111 FLUCONAZOLE Inactive MG TABS by mouth 100 MG TABS every other day for 2 doses DIFLUCAN 100 1 tablet DIFLUCAN 522256 FLUCONAZOLE Inactive MG TAB by mouth 100 MG TAB daily x 3 days PREDNISONE 2 tablets PREDNISONE 564236 PREDNISONE Inactive 20 MG TAB today, 20 MG TAB then 1 tablet days 2-4 VYVANSE 20 1 tablet VYVANSE 20 LISDEXAMFETAMI Inactive MG ORAL CAPS daily for MG ORAL NE DIMESYLATE binge CAPS eating disorder TRAMADOL HCL 1/2 po TRAMADOL 125321 TRAMADOL HCL Inactive 50 MG TABS tid with HCL 50 MG ES TABS Tylenol prn pain JANUVIA 100 1 tablet JANUVIA 100 SITAGLIPTIN Inactive MG TABS by mouth MG TABS PHOSPHATE daily AMARYL 1 MG 1 tablet AMARYL 1 MG 313652 GLIMEPIRIDE Inactive ORAL TABS orally ORAL TABS twice daily METFORMIN 2 tablets METFORMIN METFORMIN HCL Inactive HCL 500 MG by mouth HCL 500 MG TB24 twice TB24 daily AMOXICILLIN 2 po BID AMOXICILLIN 762692 AMOXICILLIN Inactive 500 MG CAPS x 10 days 500 MG CAPS PREDNISONE 2 tabs PREDNISONE 010615 PREDNISONE Inactive 20 MG TAB daily for 20 MG TAB 3 days, 1 tab daily for 3 days, 1/2 tab daily for 2 days NITROFURANTO One NITROFURANT 1053561 NITROFURANTOIN Inactive IN MONOHYD capsule OIN MONOHYD MONOHYD MACRO MACRO 100 MG BID for MACRO 100 CAPS UTI MG CAPS PREDNISONE 2 pills PREDNISONE 713358 PREDNISONE Inactive 20 MG TAB daily x 4 20 MG TAB days AZITHROMYCIN 2 po qd x AZITHROMYCI 3207853 AZITHROMYCIN Inactive 250 MG TABS 1 day, [...] HGBA1C - Chemistry sodium, serum 140 mmol/L 488-361 5325/06/03 potassium, serum 3.9 mmol/L 3.5-5.2 chloride, serum [...] Panel - Chemistry sodium, serum 136 mmol/L 988-903 4925/01/04 carbon dioxide, venous blood 27.0 mmol/L 21.0-32.0 potassium, serum 4.6 mmol/L 3.5-5.2 chloride, serum 98 mmol/L 98-107 blood glucose 174 mg/dL 65-110 urea nitrogen, blood 12 mg/dL 7-18 creatinine, serum 0.78 mg/dL 0.55-1.30 alanine aminotransferase (SGPT), serum 65 U/L 12-78 aspartate aminotransferase (SGOT), serum 34 U/L 15-37 calcium, serum 8.9 mg/dL 8.5-10.1 bilirubin, serum, total 0.40 mg/dL 0.00-1.00 cholesterol, serum 219 mg/dL 399-293 0534/01/04 triglyceride, serum, fasting 214 mg/dL 30-200 HDL cholesterol, serum 39 mg/dL 32-96 LDL cholesterol, serum 137 mg/dL 0-130 Lab Report: Lipid Panel - Chemistry cholesterol, serum 157 mg/dL 661-635 3113/08/22 triglyceride, serum, fasting 215 mg/dL 30-200 HDL [...] mg/dL Encounters Code Encounter Date Provider Facility CPT-79600 Level 4 New Patient Yuyr Benoit MD [facility] 15:17:12 CDT CPT-77460 Level 3 Est. Patient [facility] - 13:37:46 CDT [place] CPT-15743 Level 4 Est. Patient [facility] - 10:01:06 CDT [place] CPT-92793 Level 3 Est. Patient [facility] 08:58:07 CDT BOGGER OPERATOR CPT-73982 Level 3 Est[facility] CPT-25049 Level 4 Est. 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 Patient [facility] 09:51:54 BUILDING CONSTRUCTION CONTRACTOR CPT-88043 Level 3 Est. Patient [facility] 18:59:38 CDT CPT-72003 Level 3 Est. Patient Joseph Pineda [facility] 14:42:12 CDT -[facility] CPT-09450 Level 3 Est. Patient Joseph Pineda [facility] 22:18:20 CDT -[facility] CPT-06153 Level 3 Est. Patient Joseph Edwin [facility] 16:46:04 CDT -[facility] CPT-31272 Level 3 Est. Patient Joseph Edwin [facility] 15:39:53 CDT -[facility] CPT-31104 Level 3 Est. Patient Maite Sanchez MD [facility] 13:33:34 CDT -[facility] CPT-28467 Level 3 Est. Patient Joseph Pineda [facility] 11:37:08 CDT -[facility] CPT-27356 Level 3 Est. Patient Joseph Pineda [facility] 17:13:29 BUILDING CONSTRUCTION CONTRACTOR -[facility] CPT-86998 Level 3 Est. Patient Joseph Pineda [facility] 18:42:44 CDT CPT-08386 Level 3 Est. Patient Joseph Edwin [facility] 16:25:39 CDT CPT-77216 Level 3 Est. Patient Casey Brower [facility] 09:52:45 CDT -[facility] CPT-11262 Level 3 Est. Patient Joseph Pineda [facility] 11:03:29 BUILDING CONSTRUCTION CONTRACTOR -[facility] CPT-89962 Level 3 Est. Patient Joseph Edwin [facility] 11:03:08 BUILDING CONSTRUCTION CONTRACTOR -[facility] CPT-74329 Level 3 Est. Patient Joseph Edwin [facility] 14:33:31 CDT -[facility] CPT-54082 Level 3 Est. Patient Joseph Edwin [facility] 17:05:02 BUILDING CONSTRUCTION CONTRACTOR -[facility] CPT-69079 Level 3 Est. Patient Joseph Edwin [facility] 17:48:06 BUILDING CONSTRUCTION CONTRACTOR -[facility] CPT-47333 Level 3 Est. Patient Joseph Edwin [facility] 14:59:22 BUILDING CONSTRUCTION CONTRACTOR -[facility]HC CPT-59678 Level 3 Est. Patient Joseph Edwin [facility] - 21:45:56 BUILDING CONSTRUCTION CONTRACTOR Glenn [facility] CPT-78127 Level 3 Est. Patient Joseph Edwin [facility] 21:29:50 CDT -[facility] CPT-08427 Level 3 Est. Patient Olga Edwin [facility] 12:41:09 CDT -[facility] Procedures Code Procedure Name Date Entry Date Standard Description CPT-76997 Postop F/U Visit 18:20:10 CDT CPT-A4351 Coloplast Female Cath 09:37:10 CDT CPT-05280 Urine Dip (Floor Use Only) 15:17:13 CDT CPT-11536 Dil F ureth int 15:17:13 CDT CPT-88580 Venipuncture Draw Fee 09:19:08 CDT CPT-75280 Lipid - LAB USE ONLY 09:19:07 CDT CPT-JTINJ Asp/Joint Injection 09:26:49 CDT CPT-28006 Chest 2V Frontal and Lat 14:47:43 CDT CPT-JTINJ Asp/Joint Injection 09:51:53 BUILDING CONSTRUCTION CONTRACTOR CPT-OV Office Visit 17:39:05 CDT CPT-OV Office Visit 15:19:50 CDT CPT-42461 Sono transvag pelvis non OB uterus ovaries cervix 18:04:34 CDT CPT-80388 Venipuncture Draw Fee 08:55:49 BUILDING CONSTRUCTION CONTRACTOR
--- OUTSIDE RECORDS SUMMARY | 2016-11-20 13:40 | External Medical Summary | Clinical Summary ---
:1965 Author Organization [facility] [employer] Address [address] [address] Phone Allergies, Adverse Reactions, Alerts Allergy Name Reaction Description Start Date Severity Status Provider NKDA Critical Active Indigo Jordanum LOTTERY SALES CLERK NKDA Critical No Longer Indigo Yokum LOTTERY SALES CLERK Active NKDA Critical Inactive Adiranna Elder Conditions or Problems Problem Name Problem [...] Resolved Indigo Other malaise 05/24 07/02 Yokum LOTTERY SALES CLERK and fatigue SLEEP APNEA, 327.23 Active Joseph Pineda Obstructive OBSTRUCTIVE, 06/27 06/27 Farooq DO sleep apnea MILD (adult) (pediatric) OVERWEIGHT 278.02 Inactive Joseph Pineda Overweight 06/28 06/28 Farooq DO Obesity 278.00 Active Indigo Obesity, 06/28 10/18 Yokum LOTTERY SALES CLERK unspecified OTH GENERAL V70.3 Resolved Maite Gutierrez Other general MEDICAL Laura ONEAL medical EXAMINATION PhD examination for ADMIN PURPOSES administrative purposes OTHER ABNORMAL 790.29 Resolved Maite C Other abnormal GLUCOSE 05/20 Laura ONEAL glucose PhD ACUTE 466.0 Resolved Maite C Acute BRONCHITIS 09/02 Laura ONEAL bronchitis PhD DEPENDENT 782.3 Resolved Indigo Edema EDEMA, LEGS, 10/29 10/18 Yokum LOTTERY SALES CLERK BILATERAL HYPOKALEMIA, 276.8 Resolved Indigo Hypopotassemia MILD 10/29 07/02 Youm LOTTERY SALES CLERK Diabetes, Type 250.00 Inactive Joseph Pineda Diabetes 2 06/27 06/27 Farooq DO mellitus without mention of complication, type II or unspecified type, not stated as uncontrolled Diabetes 250.02 Resolved Indigo Diabetes mellitus, type 06/27 LOTTERY SALES CLERK mellitus II, without mention uncontrolled of complication, [...] Resolved Indigo Routine gynecological 12/14 07/02 Yo LOTTERY SALES CLERK gynecological examination examination Postmenopausal 627.1 Resolved Indigo Postmenopausal bleeding 12/14 LOTTERY SALES CLERK bleeding Screening for V76.51 Resolved Indigo Screening for malignant 12/26 07/02 Yokum LOTTERY SALES CLERK malignant neoplasms of neoplasms of colon colon Insomnia, 307.42 Active Indigo 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 SALES CLERK disorder of initiating or maintaining sleep Establish care V68.89 Resolved Indigo Encounters for or get 01/16 07/02 Yo LOTTERY SALES CLERK other specified acquainted administrative visit purpose Weakness, left 342.90 Resolved Indigo Hemiplegia, side of body 06/20 10/18 Yokum LOTTERY SALES CLERK unspecified, affecting unspecified side TIA 435.9 Active Indigo Unspecified 06/20 07/02 Yokum LOTTERY SALES CLERK transient cerebral ischemia Knee pain, 719.46 Active Indigo Pain in joint bilateral 06/20 10/18 Yokum LOTTERY SALES CLERK involving lower leg Bronchitis 490 Resolved Indigo Bronchitis, not 07/23 10/18 Yokum LOTTERY SALES CLERK specified as acute or chronic Diabetes 357.2 Active Maliheh Polyneuropathy mellitus, 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 APPLICATION 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y Knee pain, 719.46 Active Indigo Pain in joint right 06/20 10/18 Yokum LOTTERY SALES CLERK involving lower leg Jesi 112.3 Active Indigo Candidiasis of intertrigo 10/09 10/18 Yokum LOTTERY SALES CLERK skin and nails Hyperlipidemia 272.4 Active Anne Other and 12/24 12/24 Neil unspecified RMA hyperlipidemia Incontinence, 788.33 Active Indigo Mixed mixed, 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 LOTTERY SALES CLERK incontinence urge/stress (female) (male) Female stress 625.6 Active Yury Monaco Stress incontinence 01/03 01/03 Cy patel MD female SCABIES ICD-133.0 Inactive Maite Sanhcez PhD FATIGUE ICD-780.79 Inactive Indigo Yokum LOTTERY SALES CLERK OTH GENERAL ICD-V70.3 Inactive Maite Sanchez MEDICAL MD PhD EXAMINATION ADMIN PURPOSES OTHER ABNORMAL ICD-790.29 Inactive Maite Sanchez GLUCOSE PhD ACUTE BRONCHITIS ICD-466.0 Inactive Maite Sanchez PhD DEPENDENT EDEMA, ICD-782.3 Inactive Indigo Yonickieum LEGS, BILATERAL LOTTERY SALES CLERK HYPOKALEMIA, MILD ICD-276.8 Inactive Indigo Yokum LOTTERY SALES CLERK Diabetes mellitus, ICD-250.02 Inactive Indigo Yokum type II, LOTTERY SALES CLERK uncontrolled Sinusitis, ICD-461.1 Inactive Ismael Coyne frontal, acute Amandeep ONEAL Laryngitis, acute ICD-464.00 Inactive Ismael Coyne Amandeep ONEAL Routine ICD-V72.31 Inactive Indigo Yonickieum gynecological LOTTERY SALES CLERK examination Postmenopausal ICD-627.1 Inactive Indigo Yokum 2015 bleeding LOTTERY SALES CLERK Screening for ICD-V76.51 Inactive Indigo Yokum 2015 malignant LOTTERY SALES CLERK neoplasms of colon Establish care or ICD-V68.89 Inactive Indigo Yokum get acquainted LOTTERY SALES CLERK visit Weakness, left ICD-342.90 Inactive Indigo Yokum side of body LOTTERY SALES CLERK ABNORMAL VAGINAL ICD-626.9 Inactive Maite Sanchez BLEEDING PhD Bronchitis ICD-490 Inactive Indigo Yokum LOTTERY SALES CLERK Medication List Medication Instructions Start Stop Generic NDC Status Provider Patient Date Date Name Instruction METFORMIN 2 tablets METFORMIN 88431835346 No Indigo Active HCL 500 MG by mouth HCL Longer Yokum TB24 twice Active LOTTERY SALES CLERK daily AMARYL 1 MG 1 tablet GLIMEPIRID 78579988718 No Indigo Active ORAL TABS orally E Longer Yokum twice Active LOTTERY SALES CLERK daily NYSTATIN apply to NYSTATIN 76120532181 Active Indigo Active 730592 rash TID Yokum UNIT/GM PRN LOTTERY SALES CLERK CREA TROKENDI XR 2 tab TOPIRAMATE 16030047073 Active Malihe Active 100 MG ORAL daily h [id number] Ziglar i COMPUTER APPLICATION 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 METOPROLOL 1 tab po METOPROLOL 83997049128 Active Indigo Active TARTRATE 25 bid TARTRATE Yokum MG TABS LOTTERY SALES CLERK AZITHROMYCI 2 po qd x AZITHROMYC 05706505884 No Jillin Active N 250 MG 1 day, IN Longer a TABS then 1 po Active Frazel qd x 4 l LOTTERY SALES CLERK days PREDNISONE 2 pills PREDNISONE 45838255941 No Jillin Active 20 MG TAB daily x 4 Longer a days Active Frazel l LOTTERY SALES CLERK PIOGLITAZON take one PIOGLITAZO 67883392440 Active Malihe Active E HCL 30 MG a day NE HCL h ORAL TABS Ziglar i COMPUTER APPLICATION DEVELOPER JANUVIA 100 1 tablet SITAGLIPTI 57521745969 No Indigo Active MG TABS by mouth N Longer Yokum daily PHOSPHATE Active LOTTERY SALES CLERK ATORVASTATI 1 pill by ATORVASTAT 03340604804 Active Indigo Active N CALCIUM mouth IN CALCIUM Yokum 10 MG TABS nightly, LOTTERY SALES CLERK for cholester ol ASPIRIN 81 1 po qd ASPIRIN 17609324074 Active Indigo Active MG ORAL Yokum TABS LOTTERY SALES CLERK NITROFURANT One NITROFURAN 02589190646 No Indigo Active OIN MONOHYD capsule TOIN Longer Yokum MACRO 100 BID for MONOHYD Active LOTTERY SALES CLERK MG CAPS UTI MACRO TRAMADOL 1/2 po TRAMADOL 60875912616 No Jillin Active HCL 50 MG tid with HCL Longer a TABS ES Active Frazel Tylenol l LOTTERY SALES CLERK prn pain VYVANSE 20 1 tablet LISDEXAMFE 09858598270 No Jillin Active MG ORAL daily for TAMINE Longer a CAPS binge DIMESYLATE Active Frazel eating l LOTTERY SALES CLERK disorder LASIX 20 MG 2 tablet FUROSEMIDE 01424281105 Active Indigo Active TAB by mouth Yokum daily LOTTERY SALES CLERK CELEBREX 1 tablet CELECOXIB 72466519056 Active Indigo Active 200 MG CAPS by mouth Yokum daily LOTTERY SALES CLERK with meals PREDNISONE 2 tablets PREDNISONE 41700588318 No Joseph Active 20 MG TAB today, Longer W Farooq then 1 Active DO tablet days 2-4 DIFLUCAN 1 tablet FLUCONAZOL 89213788935 No Joseph Active 100 MG TAB by mouth E Longer W Farooq daily x 3 Active DO days DIFLUCAN 1 tablet FLUCONAZOL 52334412127 No Joseph Active 100 MG TABS by mouth E Longer W Farooq every Active DO other day for 2 doses ZOFRAN 4 MG 1 po q6hr ONDANSETRO 90009661796 Active Joseph Active TABS PRN N HCL W Farooq Nausea DO PREDNISONE 2 tabs PREDNISONE 15696945475 No Joseph Active 20 MG TAB daily for Longer W Farooq 3 days, 1 Active DO tab daily for 3 days, 1/2 tab daily for 2 days AMOXICILLIN 2 po BID AMOXICILLI 90223192218 No Maite C Active 500 MG CAPS x 10 days N Longer Madril Active PhD LISINOPRIL 1 tablet LISINOPRIL 74618860005 No Maite C Active 20 MG TABS by mouth Longer Madril daily Active PhD POTASSIUM 2 capsule POTASSIUM 79310319529 No Joseph Active CHLORIDE CR by mouth CHLORIDE Longer W Farooq 10 MEQ CPCR daily Active DO SPIRONOLACT 1 tablet SPIRONOLAC 26905386420 No Joseph Active ONE 25 MG by mouth TONE Longer W Farooq TAB daily Active DO METFORMIN 1 tablet METFORMIN 84241432049 No Joseph Active HCL 500 MG by mouth HCL Longer W Farooq TABS twice Active DO daily AMARYL 1 MG 1 tab GLIMEPIRID 54176752349 No Joseph Active TABS twice E Longer W Farooq daily Active DO PHENTERMINE 1 po q am PHENTERMIN 73110669002 No Joseph Active HCL 37.5 MG for wt. E HCL Longer W Farooq TABS loss Active DO PROMETHAZIN 1 tab by PROMETHAZI 41393807789 No Joseph Active E HCL 25 MG mouth NE HCL Longer W Farooq TABS every 6 Active DO hours as needed CIPROFLOXAC Take one CIPROFLOXA 50928325404 No Joseph Active IN HCL 500 (1) DELORES HCL Longer W Farooq MG TABS tablet by Active DO mouth twice a day ABILIFY 5 one p.o. ARIPIPRAZO 70716886624 No Joseph Active MG TABS q. day LE Longer W Farooq Active DO HYDROCHLORO 2 tabs HYDROCHLOR 47693712968 No Joseph Active THIAZIDE 25 every OTHIAZIDE Longer W Farooq MG TABS morning Active DO ABILIFY 2 1 po q hs ARIPIPRAZO 80227405862 No Joseph Active MG TABS for major LE Longer W Farooq depressio Active DO n ADIPEX-P 1/2 tab PHENTERMIN 57415111485 No Casey Active 37.5 MG po q am E HCL Longer Leonarda CAPS for Active PA weight loss CIPRO 500 1 tablet CIPROFLOXA 50145593669 No Casey Active MG TAB by mouth DELORES HCL Longer Edison twice Active PA daily NECON 1/35 1 po NORETHINDR 28755842507 No Casey Active (28) 1-35 daily ONE-ETH Longer Edison MG-MCG TABS ESTRADIOL Active PA TRAMADOL 1 po tid TRAMADOL 24865006132 No Caesy Active HCL 50 MG with ES HCL Longer Edison TABS Tylenol Active PA FLUCONAZOLE one p.o. FLUCONAZOL 20002325024 No Casey Active 100 MG TABS q. day 2 E Longer Edison days Active PA POTASSIUM 1 capsule POTASSIUM 47962411040 No Casey Active CHLORIDE CR by mouth CHLORIDE Longer 10 MEQ CPCR daily Active PA IMIPRAMINE Take 6 IMIPRAMINE 78350492412 Active Indigo Active HCL 50 MG tablets HCL Yokum TABS by mouth LOTTERY SALES CLERK at bedtime DIFLUCAN 1 tablet FLUCONAZOL 17348820508 No Joseph Active 100 MG TAB by mouth E Longer W Farooq daily Active DO VERAPAMIL 2 po bid VERAPAMIL 76267228817 Active Indigo Active HCL CR 120 HCL Yokum MG TAB CR LOTTERY SALES CLERK PERMETHRIN apply PERMETHRIN 43017498063 No Joseph Active 5 % CREA neck to Longer W Farooq toes Active DO tonight and then rinse off in morning. repeat at 7 days SEROQUEL XR one p.o. QUETIAPINE 07578282581 No Joseph Active 50 MG q. FUMARATE Longer W Farooq [id number] evening Active DO TRAMADOL 1-2 TRAMADOL 73694852354 No Joseph Active HCL 50 MG tablets HCL Longer W Farooq TABS every 6-8 Active DO hours as needed for pain ALPRAZOLAM one p.o. ALPRAZOLAM 65529113561 Active Indigo Active 3 MG q.h.s. Yokum [id number] LOTTERY SALES CLERK ALPRAZOLAM Take 1 ALPRAZOLAM 01339471267 No Joseph Active XR tablet by [id number] Longer W Farooq [id number] mouth at Active DO bedtime DIFLUCAN 1 tablet FLUCONAZOL 93016150241 No Joseph Active 100 MG TAB by mouth E Longer W Farooq daily Active DO AMBIEN 10 1 tab by ZOLPIDEM 77191602665 Active Indigo Active MG TAB mouth at TARTRATE Yokum bedtime LOTTERY SALES CLERK as needed for sleep DIFLUCAN 100 1 tablet DIFLUCAN 425292 FLUCONAZOLE Inactive MG TAB by mouth 100 MG TAB daily ALPRAZOLAM Take 1 ALPRAZOLAM ALPRAZOLAM Inactive XR [id number] tablet by XR [id number] mouth at [id number] bedtime TRAMADOL HCL 1-2 TRAMADOL 594869 TRAMADOL HCL Inactive 50 MG TABS tablets HCL 50 MG every 6-8 TABS hours as needed for pain SEROQUEL XR one p.o. SEROQUEL XR QUETIAPINE Inactive 50 MG q. 50 MG FUMARATE [id number] evening [id number] PERMETHRIN 5 apply PERMETHRIN 708234 PERMETHRIN Inactive % CREA neck to 5 % CREA toes tonight and then rinse off in morning. repeat at 7 days DIFLUCAN 100 1 tablet DIFLUCAN 624252 FLUCONAZOLE Inactive MG TAB by mouth 100 MG TAB daily POTASSIUM 1 capsule POTASSIUM POTASSIUM Inactive CHLORIDE CR by mouth CHLORIDE CR CHLORIDE 10 MEQ CPCR daily 10 MEQ CPCR FLUCONAZOLE one p.o. FLUCONAZOLE 697347 FLUCONAZOLE Inactive 100 MG TABS q. day 2 100 MG TABS days TRAMADOL HCL 1 po tid TRAMADOL 902400 TRAMADOL HCL Inactive 50 MG TABS with ES HCL 50 MG Tylenol TABS NECON 1/35 1 po NECON 1/35 NORETHINDRONE- Inactive (28) 1-35 daily (28) 1-35 ETH ESTRADIOL MG-MCG TABS MG-MCG TABS CIPRO 500 MG 1 tablet CIPRO 500 533666 CIPROFLOXACIN Inactive TAB by mouth MG TAB HCL twice daily ADIPEX-P 1/2 tab ADIPEX-P 339255 PHENTERMINE Inactive 37.5 MG CAPS po q am 37.5 MG HCL for CAPS weight loss ABILIFY 2 MG 1 po q hs ABILIFY 2 583789 ARIPIPRAZOLE Inactive TABS for major MG TABS depressio n HYDROCHLOROT 2 tabs HYDROCHLORO 898475 HYDROCHLOROTHI Inactive HIAZIDE 25 every THIAZIDE 25 AZIDE MG TABS morning MG TABS ABILIFY 5 MG one p.o. ABILIFY 5 629475 ARIPIPRAZOLE Inactive TABS q. day MG TABS CIPROFLOXACI Take one CIPROFLOXAC 250040 CIPROFLOXACIN Inactive N HCL 500 MG (1) IN HCL 500 HCL TABS tablet by MG TABS mouth twice a day PROMETHAZINE 1 tab by PROMETHAZIN 315487 PROMETHAZINE Inactive HCL 25 MG mouth E HCL 25 MG HCL TABS every 6 TABS hours as needed PHENTERMINE 1 po q am PHENTERMINE 992845 PHENTERMINE Inactive HCL 37.5 MG for wt. HCL 37.5 MG HCL TABS loss TABS AMARYL 1 MG 1 tab AMARYL 1 MG 084555 GLIMEPIRIDE Inactive TABS twice TABS daily METFORMIN 1 tablet METFORMIN 914103 METFORMIN HCL Inactive HCL 500 MG by mouth HCL 500 MG TABS twice TABS daily SPIRONOLACTO 1 tablet SPIRONOLACT 460515 SPIRONOLACTONE Inactive NE 25 MG TAB by mouth ONE 25 MG daily TAB POTASSIUM 2 capsule POTASSIUM POTASSIUM Inactive CHLORIDE CR by mouth CHLORIDE CR CHLORIDE 10 MEQ CPCR daily 10 MEQ CPCR LISINOPRIL 1 tablet LISINOPRIL 765431 LISINOPRIL Inactive 20 MG TABS by mouth 20 MG TABS daily DIFLUCAN 100 1 tablet DIFLUCAN 19760111 FLUCONAZOLE Inactive MG TABS by mouth 100 MG TABS every other day for 2 doses DIFLUCAN 100 1 tablet DIFLUCAN 277426 FLUCONAZOLE Inactive MG TAB by mouth 100 MG TAB daily x 3 days PREDNISONE 2 tablets PREDNISONE 950256 PREDNISONE Inactive 20 MG TAB today, 20 MG TAB then 1 tablet days 2-4 VYVANSE 20 1 tablet VYVANSE 20 LISDEXAMFETAMI Inactive MG ORAL CAPS daily for MG ORAL NE DIMESYLATE binge CAPS eating disorder TRAMADOL HCL 1/2 po TRAMADOL 080907 TRAMADOL HCL Inactive 50 MG TABS tid with HCL 50 MG ES TABS Tylenol prn pain JANUVIA 100 1 tablet JANUVIA 100 SITAGLIPTIN Inactive MG TABS by mouth MG TABS PHOSPHATE daily AMARYL 1 MG 1 tablet AMARYL 1 MG 468111 GLIMEPIRIDE Inactive ORAL TABS orally ORAL TABS twice daily METFORMIN 2 tablets METFORMIN METFORMIN HCL Inactive HCL 500 MG by mouth HCL 500 MG TB24 twice TB24 daily AMOXICILLIN 2 po BID AMOXICILLIN 245498 AMOXICILLIN Inactive 500 MG CAPS x 10 days 500 MG CAPS PREDNISONE 2 tabs PREDNISONE 243493 PREDNISONE Inactive 20 MG TAB daily for 20 MG TAB 3 days, 1 tab daily for 3 days, 1/2 tab daily for 2 days NITROFURANTO One NITROFURANT 9373136 NITROFURANTOIN Inactive IN MONOHYD capsule OIN MONOHYD MONOHYD MACRO MACRO 100 MG BID for MACRO 100 CAPS UTI MG CAPS PREDNISONE 2 pills PREDNISONE 453690 PREDNISONE Inactive 20 MG TAB daily x 4 20 MG TAB days AZITHROMYCIN 2 po qd x AZITHROMYCI 2881654 AZITHROMYCIN Inactive 250 MG TABS 1 day, [...] HGBA1C - Chemistry sodium, serum 140 mmol/L 634-664 6534/06/03 potassium, serum 3.9 mmol/L 3.5-5.2 chloride, serum [...] Panel - Chemistry sodium, serum 136 mmol/L 452-390 4375/01/04 carbon dioxide, venous blood 27.0 mmol/L 21.0-32.0 potassium, serum 4.6 mmol/L 3.5-5.2 chloride, serum 98 mmol/L 98-107 blood glucose 174 mg/dL 65-110 urea nitrogen, blood 12 mg/dL 7-18 creatinine, serum 0.78 mg/dL 0.55-1.30 alanine aminotransferase (SGPT), serum 65 U/L 12-78 aspartate aminotransferase (SGOT), serum 34 U/L 15-37 calcium, serum 8.9 mg/dL 8.5-10.1 bilirubin, serum, total 0.40 mg/dL 0.00-1.00 cholesterol, serum 219 mg/dL 224-955 2671/01/04 triglyceride, serum, fasting 214 mg/dL 30-200 HDL cholesterol, serum 39 mg/dL 32-96 LDL cholesterol, serum 137 mg/dL 0-130 Lab Report: Lipid Panel - Chemistry cholesterol, serum 157 mg/dL 384-169 2484/08/22 triglyceride, serum, fasting 215 mg/dL 30-200 HDL [...] mg/dL Encounters Code Encounter Date Provider Facility CPT-95967 Level 4 New Patient Yury Benoit MD [facility] 15:17:12 CDT CPT-07505 Level 3 Est. Patient [facility] - 13:37:46 CDT [place] CPT-54485 Level 4 Est. Patient [facility] - 10:01:06 CDT [place] CPT-65130 Level 3 Est. 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 [facility] CPT-06953 Level 4 Est. Patient [facility] 17:29:53 CASHIERS SUPERVISOR COMPUTER APPLICATION DEVELOPER CPT-28155 Level 4 Est. Patient [facility] 09:51:54 CASHIERS SUPERVISOR CPT-07691 Level 3 Est. Patient [facility] 18:59:38 CDT CPT-83860 Level 3 Est. Patient Joseph Pineda [facility] 14:42:12 CDT -[facility] CPT-28632 Level 3 Est. Patient Joseph Pineda [facility] 22:18:20 CDT -[facility] CPT-61972 Level 3 Est. Patient Joseph Edwin [facility] 16:46:04 CDT -[facility] CPT-54938 Level 3 Est. Patient Joseph Edwin [facility] 15:39:53 CDT -[facility] CPT-29782 Level 3 Est. Patient Maite Sanchez MD [facility] 13:33:34 CDT -[facility] CPT-20167 Level 3 Est. Patient Joseph Pineda [facility] 11:37:08 CDT -[facility] CPT-86271 Level 3 Est. Patient Joseph Pineda [facility] 17:13:29 CASHIERS SUPERVISOR -[facility] CPT-58958 Level 3 Est. Patient Joseph Pineda [facility] 18:42:44 CDT CPT-99163 Level 3 Est. Patient Joseph Edwin [facility] 16:25:39 CDT CPT-06894 Level 3 Est. Patient Casey Brower [facility] 09:52:45 CDT -[facility] CPT-08956 Level 3 Est. Patient Joseph Pineda [facility] 11:03:29 CASHIERS SUPERVISOR -[facility] CPT-54686 Level 3 Est. Patient Joseph Edwin [facility] 11:03:08 CASHIERS SUPERVISOR -[facility] CPT-95657 Level 3 Est. Patient Joseph Edwin [facility] 14:33:31 CDT -[facility] CPT-34262 Level 3 Est. Patient Joseph Edwin [facility] 17:05:02 CASHIERS SUPERVISOR -[facility] CPT-27897 Level 3 Est. Patient Joseph Edwin [facility] 17:48:06 CASHIERS SUPERVISOR -[facility] CPT-66303 Level 3 Est. Patient Joseph Edwin [facility] 14:59:22 CASHIERS SUPERVISOR -[facility] CPT-12778 Level 3 Est. Patient Joseph Edwin [facility] - 21:45:56 CASHIERS SUPERVISOR [place] [facility] CPT-03020 Level 3 Est. Patient Joseph Edwin [facility] 21:29:50 CDT -[facility] CPT-11913 Level 3 Est. Patient [place] Edwin [facility] 12:41:09 CDT -[facility] Procedures Code Procedure Name Date Entry Date Standard Description CPT-45295 Postop F/U Visit 18:20:10 CDT CPT-A4351 Coloplast Female Cath 09:37:10 CDT CPT-25908 Urine Dip (Floor Use Only) 15:17:13 CDT CPT-87980 Dil F ureth int 15:17:13 CDT CPT-13663 Venipuncture Draw Fee 09:19:08 CDT CPT-19497 Lipid - LAB USE ONLY 09:19:07 CDT CPT-JTINJ Asp/Joint Injection 09:26:49 CDT CPT-30201 Chest 2V Frontal and Lat 14:47:43 CDT CPT-JTINJ Asp/Joint Injection 09:51:53 CASHIERS SUPERVISOR CPT-OV Office Visit 17:39:05 CDT CPT-OV Office Visit 15:19:50 CDT CPT-48647 Sono transvag pelvis non OB uterus ovaries cervix 18:04:34 CDT CPT-78661 Venipuncture Draw Fee 08:55:49 CASHIERS SUPERVISOR
--- OUTSIDE RECORDS SUMMARY | 2016-11-20 13:40 | External Medical Summary | Clinical Summary ---
:1965 Author Organization [facility] [email or web address] Address [address] [address] Phone Allergies, Adverse Reactions, Alerts Allergy Name Reaction Description Start Date Severity Status Provider VERSED States jsut about Critical Active Gloria Saavedra SENIOR STORAGE ADMINISTRATOR killed her NKDA Critical Active Indigo Yokum STRADDLE BUG DRIVER NKDA Critical No Longer Indigo Yokum STRADDLE BUG DRIVER Active NKDA Critical Inactive Adrianna Elder [...] Resolved Indigo Other malaise 05/24 07/02 Yokum STRADDLE BUG DRIVER and fatigue SLEEP APNEA, 327.23 Active Joseph Pineda Obstructive OBSTRUCTIVE, 06/27 06/27 Farooq DO sleep apnea MILD (adult) (pediatric) OVERWEIGHT 278.02 Inactive Joseph Pineda Overweight 06/28 06/28 Farooq DO Obesity 278.00 Active Indigo Obesity, 06/28 10/18 Yokum STRADDLE BUG DRIVER unspecified OTH GENERAL V70.3 Resolved Maite Gutierrez Other general MEDICAL Laura ONEAL medical EXAMINATION PhD examination for ADMIN administrative PURPOSES purposes OTHER 790.29 Resolved Maite C Other abnormal ABNORMAL 05/20 Laura ONEAL glucose GLUCOSE PhD ACUTE 466.0 Resolved Maite Gutierrez Acute bronchitis BRONCHITIS 09/02 Laura ONEAL PhD DEPENDENT 782.3 Resolved Indigo Edema EDEMA, LEGS, 10/29 10/18 Yokum STRADDLE BUG DRIVER BILATERAL HYPOKALEMIA, 276.8 Resolved Indigo Hypopotassemia MILD 10/29 07/02 Yokum STRADDLE BUG DRIVER Diabetes, 250.00 Inactive Joseph Pineda Diabetes Type 2 06/27 06/27 Farooq DO mellitus without mention of complication, type II or unspecified type, not stated as uncontrolled Diabetes 250.02 Resolved Indigo Diabetes mellitus, 06/27 10/18 Yokum STRADDLE BUG DRIVER mellitus without type II, mention of uncontrolled [...] Resolved Indigo Routine gynecological 12/14 07/02 Yokum STRADDLE BUG DRIVER gynecological examination examination Postmenopausa 627.1 Resolved Indigo Postmenopausal l bleeding 12/14 07/02 Yokum STRADDLE BUG DRIVER bleeding Screening for V76.51 Resolved Indigo Screening for malignant 12/26 07/02 Yokum STRADDLE BUG DRIVER malignant neoplasms of neoplasms of colon colon Insomnia, 307.42 Active Indigo 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 BUG DRIVER disorder of initiating or maintaining sleep Establish V68.89 Resolved Indigo Encounters for care or get 01/16 07/02 Yokum STRADDLE BUG DRIVER other specified acquainted administrative visit purpose Weakness, 342.90 Resolved Indigo Hemiplegia, left side of 06/20 10/18 Yokum STRADDLE BUG DRIVER unspecified, body affecting unspecified side TIA 435.9 Active Indigo Unspecified 06/20 07/02 Yokum STRADDLE BUG DRIVER transient cerebral ischemia Knee pain, 719.46 Active Indigo Pain in joint bilateral 06/20 10/18 Yokum STRADDLE BUG DRIVER involving lower leg Bronchitis 490 Resolved Indigo Bronchitis, not 07/23 10/18 Yokum STRADDLE BUG DRIVER specified as acute or chronic Diabetes 357.2 Active Maliheh Polyneuropathy mellitus, 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 PERFORMANCE CONSULTANT 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 y Knee pain, 719.46 Active Indigo Pain in joint right 06/20 10/18 Yokum STRADDLE BUG DRIVER involving lower leg Jesi 112.3 Active Indigo Candidiasis of intertrigo 10/09 10/18 Yokum STRADDLE BUG DRIVER skin and nails Hyperlipidemi 272.4 Active Anne Other and a 12/24 12/24 Neil unspecified RMA hyperlipidemia Incontinence, 788.33 Active Indigo Mixed mixed, 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 STRADDLE BUG DRIVER incontinence urge/stress (female) (male) Female stress 625.6 Active Yury Monaco Stress incontinence 01/03 01/03 Cy patel MD female Vaginal odor 623.8 Active Gloria Other specified 05/28 05/28 Naff SENIOR STORAGE ADMINISTRATOR noninflammatory disorders of vagina Urinary tract 599.0 Active Indigo Urinary tract infection 05/28 05/28 Yokum STRADDLE BUG DRIVER infection, site not specified ABNORMAL VAGINAL ICD-626.9 Inactive Maite Sanchez BLEEDING PhD SCABIES ICD-133.0 Inactive Maite Sanchez PhD FATIGUE ICD-780.79 Inactive Indigo Yokum STRADDLE BUG DRIVER OTH GENERAL ICD-V70.3 Inactive Maite Sanchez MEDICAL MD PhD EXAMINATION ADMIN PURPOSES OTHER ABNORMAL ICD-790.29 Inactive Maite Sanchez GLUCOSE PhD ACUTE BRONCHITIS ICD-466.0 Inactive Maite Sanchez PhD DEPENDENT EDEMA, ICD-782.3 Inactive Indigo Yokum LEGS, BILATERAL STRADDLE BUG DRIVER HYPOKALEMIA, MILD ICD-276.8 Inactive Indigo Yokum STRADDLE BUG DRIVER Diabetes mellitus, ICD-250.02 Inactive Indigo Yokum type II, STRADDLE BUG DRIVER uncontrolled Sinusitis, ICD-461.1 Inactive Ismael Coyne frontal, acute Amandeep ONEAL Laryngitis, acute ICD-464.00 Inactive Ismael Coyne Amandeep ONEAL Routine ICD-V72.31 Inactive Indigo Yokum gynecological STRADDLE BUG DRIVER examination Postmenopausal ICD-627.1 Inactive Indigo Yokum 2015 bleeding STRADDLE BUG DRIVER Screening for ICD-V76.51 Inactive Indigo Yokum 2015 malignant STRADDLE BUG DRIVER neoplasms of colon Establish care or ICD-V68.89 Inactive Indigo Yokum get acquainted STRADDLE BUG DRIVER visit Weakness, left ICD-342.90 Inactive Indigo Yokum side of body STRADDLE BUG DRIVER Bronchitis ICD-490 Inactive Indigo Yokum STRADDLE BUG DRIVER Medication List Medication Instructions Start Stop Generic NDC Status Provider Patient Date Date Name Instruction CIPRO 1 tablet CIPROFLOXACIN 14697633064 Active Indigo Active 250 MG by mouth HCL Yokum TAB twice STRADDLE BUG DRIVER daily METFORM 2 METFORMIN HCL 68332586521 No Indigo Active IN HCL tablets Longer Yokum 500 MG by mouth Active STRADDLE BUG DRIVER TB24 twice daily AMARYL 1 tablet GLIMEPIRIDE 60056197000 No Indigo Active 1 MG orally Longer Yokum ORAL twice Active STRADDLE BUG DRIVER TABS daily NYSTATI apply to NYSTATIN 17689037417 Active Indigo Active N rash TID Yokum 365115 PRN STRADDLE BUG DRIVER UNIT/GM CREA TROKEND 2 tab TOPIRAMATE 42944400722 Active Malihe Active I XR daily h 100 MG Ziglar ORAL i PERFORMANCE CONSULTANT QO18M-G AP METOPRO 1 tab po METOPROLOL 97025479034 Active Indgio Active LOL bid TARTRATE Yokum TARTRAT STRADDLE BUG DRIVER E 25 MG TABS AZITHRO 2 po qd AZITHROMYCIN 71909910486 No Jillin Active MYCIN x 1 day, Longer a 250 MG then 1 Active Frazel TABS po qd x l STRADDLE BUG DRIVER 4 days PREDNIS 2 pills PREDNISONE 18522173626 No Jillin Active ONE 20 daily x Longer a MG TAB 4 days Active Frazel l STRADDLE BUG DRIVER PIOGLIT take one PIOGLITAZONE 73632456652 Active Malihe Active AZONE a day HCL h HCL 30 Ziglar MG ORAL i PERFORMANCE CONSULTANT TABS JANUVIA 1 tablet SITAGLIPTIN 16553441104 No Indigo Active 100 MG by mouth PHOSPHATE Longer Yokum TABS daily Active STRADDLE BUG DRIVER ATORVAS 1 pill ATORVASTATIN 14156503752 Active Indigo Active TATIN by mouth CALCIUM Yokum CALCIUM nightly, STRADDLE BUG DRIVER 10 MG for TABS choleste rol ASPIRIN 1 po qd ASPIRIN 67401058938 Active Indigo Active 81 MG Yokum ORAL STRADDLE BUG DRIVER TABS NITROFU One NITROFURANTOIN 94872541881 No Indigo Active RANTOIN capsule MONOHYD MACRO Longer Yokum MONOHYD BID for Active STRADDLE BUG DRIVER MACRO UTI 100 MG CAPS TRAMADO 1/2 po TRAMADOL HCL 20516841078 No Jillin Active L HCL tid with Longer a 50 MG ES Active Frazel TABS Tylenol l STRADDLE BUG DRIVER prn pain VYVANSE 1 tablet LISDEXAMFETAMIN 53218446921 No Jillin Active 20 MG daily E DIMESYLATE Longer a ORAL for Active Frazel CAPS binge l STRADDLE BUG DRIVER eating disorder LASIX 2 tablet FUROSEMIDE 39814283818 Active Indigo Active 20 MG by mouth Yokum TAB daily STRADDLE BUG DRIVER CELEBRE 1 tablet CELECOXIB 93964688301 Active Indigo Active X 200 by mouth Yokum MG CAPS daily STRADDLE BUG DRIVER with meals PREDNIS 2 PREDNISONE 04410418623 No Joseph Active ONE 20 tablets Longer W Farooq MG TAB today, Active DO then 1 tablet days 2-4 DIFLUCA 1 tablet FLUCONAZOLE 67252932840 No Joseph Active N 100 by mouth Longer W Farooq MG TAB daily x Active DO 3 days DIFLUCA 1 tablet FLUCONAZOLE 41557734244 No Joseph Active N 100 by mouth Longer W Farooq MG TABS every Active DO other day for 2 doses ZOFRAN 1 po ONDANSETRON HCL 44047983624 Active Joseph Active 4 MG q6hr PRN W Farooq TABS Nausea DO PREDNIS 2 tabs PREDNISONE 05223143220 No Joseph Active ONE 20 daily Longer W Farooq MG TAB for 3 Active DO days, 1 tab daily for 3 days, 1/2 tab daily for 2 days AMOXICI 2 po BID AMOXICILLIN 89109729588 No Maite C Active LLIN x 10 Longer Madril 500 MG days Active PhD CAPS LISINOP 1 tablet LISINOPRIL 55981780921 No Maite C Active RIL 20 by mouth Longer Madril MG TABS daily Active PhD POTASSI 2 POTASSIUM 78383152791 No Joseph Active UM capsule CHLORIDE Longer W Farooq CHLORID by mouth Active DO E CR 10 daily MEQ CPCR SPIRONO 1 tablet SPIRONOLACTONE 22545921621 No Joseph Active LACTONE by mouth Longer W Farooq 25 MG daily Active DO TAB METFORM 1 METFORMIN HCL 91766303180 No Joseph Active IN HCL tablet Longer W Farooq 500 MG by mouth Active DO TABS twice daily AMARYL 1 tab GLIMEPIRIDE 24075521147 No Joseph Active 1 MG twice Longer W Farooq TABS daily Active DO PHENTER 1 po q PHENTERMINE HCL 79600666448 No Joseph Active MINE am for Longer W Farooq HCL wt. loss Active DO 37.5 MG TABS PROMETH 1 tab by PROMETHAZINE 20039260234 No Joseph Active AZINE mouth HCL Longer W Farooq HCL 25 every 6 Active DO MG TABS hours as needed CIPROFL Take one CIPROFLOXACIN 36947241928 No Joseph Active OXACIN (1) HCL Longer W Farooq HCL 500 tablet Active DO MG TABS by mouth twice a day ABILIFY one p.o. ARIPIPRAZOLE 56592193234 No Joseph Active 5 MG q. day Longer W Farooq TABS Active DO HYDROCH 2 tabs HYDROCHLOROTHIA 40443432098 No Ojseph Active LOROTHI every ZIDE Longer W Farooq AZIDE morning Active DO 25 MG TABS ABILIFY 1 po q ARIPIPRAZOLE 25651391965 No Joseph Active 2 MG hs for Longer W Farooq TABS major Active DO depressi on ADIPEX- 1/2 tab PHENTERMINE HCL 85680362983 No Casey Active P 37.5 po q am Longer [place] MG CAPS for Active PA weight loss CIPRO 1 tablet CIPROFLOXACIN 90466074333 No Casey Active 500 MG by mouth HCL Longer [place] TAB twice Active PA daily NECON 1 po NORETHINDRONE-E 65566479577 No Casey Active 1/35 daily TH ESTRADIOL Longer [place] (28) Active PA 1-35 MG-MCG TABS TRAMADO 1 po tid TRAMADOL HCL 74175103102 No Casey Active L HCL with ES Longer [place] 50 MG Tylenol Active PA TABS FLUCONA one p.o. FLUCONAZOLE 16445354821 No Casey Active ZOLE q. day 2 Longer [place] 100 MG days Active PA TABS POTASSI 1 POTASSIUM 57896899069 No Casey Active UM capsule CHLORIDE Longer [place] CHLORID by mouth Active PA E CR 10 daily MEQ CPCR IMIPRAM Take 6 IMIPRAMINE HCL 52432375087 Active Indigo Active INE HCL tablets Yokum 50 MG by mouth STRADDLE BUG DRIVER TABS at bedtime DIFLUCA 1 tablet FLUCONAZOLE 35605663335 No Joseph Active N 100 by mouth Longer W Farooq MG TAB daily Active DO VERAPAM 2 po bid VERAPAMIL HCL 25199359205 Active Indigo Active IL HCL Yokum CR 120 STRADDLE BUG DRIVER MG TAB CR PERMETH apply PERMETHRIN 69639602740 No Joseph Active RIN 5 % neck to Longer W Farooq CREA toes Active DO tonight and then rinse off in morning. repeat at 7 days SEROQUE one p.o. QUETIAPINE 10532815332 No Joseph Active L XR 50 q. FUMARATE Longer W Farooq MG evening Active DO [id number] AB TRAMADO 1-2 TRAMADOL HCL 72016659903 No Joseph Active L HCL tablets Longer W Farooq 50 MG every Active DO TABS 6-8 hours as needed for pain ALPRAZO one p.o. ALPRAZOLAM 09008877910 Active Indigo Active HARDING 3 q.h.s. Yokum MG STRADDLE BUG DRIVER [id number] AB ALPRAZO Take 1 ALPRAZOLAM 81110657675 No Joseph Active HARDING XR tablet [id number] Longer W Farooq GM53T-C by mouth Active DO AB at bedtime DIFLUCA 1 tablet FLUCONAZOLE 69752136615 No Joseph Active N 100 by mouth Longer W Farooq MG TAB daily Active DO AMBIEN 1 tab by ZOLPIDEM 26782823456 Active Indigo Active 10 MG mouth at TARTRATE Yokum TAB bedtime STRADDLE BUG DRIVER as needed for sleep DIFLUCAN 100 1 tablet DIFLUCAN 19760111 FLUCONAZOLE Inactive MG TAB by mouth 100 MG TAB daily ALPRAZOLAM Take 1 ALPRAZOLAM ALPRAZOLAM Inactive XR [id number] tablet by XR [id number] mouth at [id number] bedtime TRAMADOL HCL 1-2 TRAMADOL 530321 TRAMADOL HCL Inactive 50 MG TABS tablets HCL 50 MG every 6-8 TABS hours as needed for pain SEROQUEL XR one p.o. SEROQUEL XR QUETIAPINE Inactive 50 MG q. 50 MG FUMARATE [id number]-DIP evening [id number]-FSU PERMETHRIN 5 apply PERMETHRIN 819336 PERMETHRIN Inactive % CREA neck to 5 % CREA toes tonight and then rinse off in morning. repeat at 7 days DIFLUCAN 100 1 tablet DIFLUCAN 19760111 FLUCONAZOLE Inactive MG TAB by mouth 100 MG TAB daily POTASSIUM 1 capsule POTASSIUM POTASSIUM Inactive CHLORIDE CR by mouth CHLORIDE CR CHLORIDE 10 MEQ CPCR daily 10 MEQ CPCR FLUCONAZOLE one p.o. FLUCONAZOLE 234990 FLUCONAZOLE Inactive 100 MG TABS q. day 2 100 MG TABS days TRAMADOL HCL 1 po tid TRAMADOL 721836 TRAMADOL HCL Inactive 50 MG TABS with ES HCL 50 MG Tylenol TABS NECON 1/35 1 po NECON 1/35 NORETHINDRONE- Inactive (28) 1-35 daily (28) 1-35 ETH ESTRADIOL MG-MCG TABS MG-MCG TABS CIPRO 500 MG 1 tablet CIPRO 500 420036 CIPROFLOXACIN Inactive TAB by mouth MG TAB HCL twice daily ADIPEX-P 1/2 tab ADIPEX-P 964130 PHENTERMINE Inactive 37.5 MG CAPS po q am 37.5 MG HCL for CAPS weight loss ABILIFY 2 MG 1 po q hs ABILIFY 2 372738 ARIPIPRAZOLE Inactive TABS for major MG TABS depressio n HYDROCHLOROT 2 tabs HYDROCHLORO 620011 HYDROCHLOROTHI Inactive HIAZIDE 25 every THIAZIDE 25 AZIDE MG TABS morning MG TABS ABILIFY 5 MG one p.o. ABILIFY 5 499186 ARIPIPRAZOLE Inactive TABS q. day MG TABS CIPROFLOXACI Take one CIPROFLOXAC 118248 CIPROFLOXACIN Inactive N HCL 500 MG (1) IN HCL 500 HCL TABS tablet by MG TABS mouth twice a day PROMETHAZINE 1 tab by PROMETHAZIN 431847 PROMETHAZINE Inactive HCL 25 MG mouth E HCL 25 MG HCL TABS every 6 TABS hours as needed PHENTERMINE 1 po q am PHENTERMINE 269547 PHENTERMINE Inactive HCL 37.5 MG for wt. HCL 37.5 MG HCL TABS loss TABS AMARYL 1 MG 1 tab AMARYL 1 MG 538547 GLIMEPIRIDE Inactive TABS twice TABS daily METFORMIN 1 tablet METFORMIN 966102 METFORMIN HCL Inactive HCL 500 MG by mouth HCL 500 MG TABS twice TABS daily SPIRONOLACTO 1 tablet SPIRONOLACT 178812 SPIRONOLACTONE Inactive NE 25 MG TAB by mouth ONE 25 MG daily TAB POTASSIUM 2 capsule POTASSIUM POTASSIUM Inactive CHLORIDE CR by mouth CHLORIDE CR CHLORIDE 10 MEQ CPCR daily 10 MEQ CPCR LISINOPRIL 1 tablet LISINOPRIL 598738 LISINOPRIL Inactive 20 MG TABS by mouth 20 MG TABS daily DIFLUCAN 100 1 tablet DIFLUCAN 094420 FLUCONAZOLE Inactive MG TABS by mouth 100 MG TABS every other day for 2 doses DIFLUCAN 100 1 tablet DIFLUCAN 360949 FLUCONAZOLE Inactive MG TAB by mouth 100 MG TAB daily x 3 days PREDNISONE 2 tablets PREDNISONE 134613 PREDNISONE Inactive 20 MG TAB today, 20 MG TAB then 1 tablet days 2-4 VYVANSE 20 1 tablet VYVANSE 20 LISDEXAMFETAMI Inactive MG ORAL CAPS daily for MG ORAL NE DIMESYLATE binge CAPS eating disorder TRAMADOL HCL 1/2 po TRAMADOL 297586 TRAMADOL HCL Inactive 50 MG TABS tid with HCL 50 MG ES TABS Tylenol prn pain JANUVIA 100 1 tablet JANUVIA 100 SITAGLIPTIN Inactive MG TABS by mouth MG TABS PHOSPHATE daily AMARYL 1 MG 1 tablet AMARYL 1 MG 014318 GLIMEPIRIDE Inactive ORAL TABS orally ORAL TABS twice daily METFORMIN 2 tablets METFORMIN METFORMIN HCL Inactive HCL 500 MG by mouth HCL 500 MG TB24 twice TB24 daily AMOXICILLIN 2 po BID AMOXICILLIN 477420 AMOXICILLIN Inactive 500 MG CAPS x 10 days 500 MG CAPS PREDNISONE 2 tabs PREDNISONE 262814 PREDNISONE Inactive 20 MG TAB daily for 20 MG TAB 3 days, 1 tab daily for 3 days, 1/2 tab daily for 2 days NITROFURANTO One NITROFURANT 9743719 NITROFURANTOIN Inactive IN MONOHYD capsule OIN MONOHYD MONOHYD MACRO MACRO 100 MG BID for MACRO 100 CAPS UTI MG CAPS PREDNISONE 2 pills PREDNISONE 744292 PREDNISONE Inactive 20 MG TAB daily x 4 20 MG TAB days AZITHROMYCIN 2 po qd x AZITHROMYCI 5496487 AZITHROMYCIN Inactive 250 MG TABS 1 day, [...] HGBA1C - Chemistry sodium, serum 140 mmol/L 410-379 8361/06/03 potassium, serum 3.9 mmol/L 3.5-5.2 chloride, serum [...] Panel - Chemistry cholesterol, serum 157 mg/dL 760-451 0705/08/22 triglyceride, serum, fasting 215 mg/dL 30-200 HDL [...] mg/dL Encounters Code Encounter Date Provider Facility CPT-87578 Level 4 New Patient Yury Benoit MD [facility] 15:17:12 CDT CPT-39759 Level 3 Est. Patient [facility] - 13:37:46 CDT [place] CPT-38759 Level 4 Est. Patient [facility] - 10:01:06 CDT [place] CPT-29499 Level 3 Est. Patient [facility] 08:58:07 CDT PERFORMANCE CONSULTANT CPT-06136 Level 3 Est. Patient Sharmiladorothy Marino [facility] 14:40:56 CDT STRADDLE BUG DRIVER CPT-14981 Level 4 Est. Patient [facility] 17:29:53 DIRECTOR OF CODING PERFORMANCE CONSULTANT CPT-83392 Level 4 Est. Patient [facility] 09:51:54 DIRECTOR OF CODING CPT-13332 Level 3 Est. Patient [facility] 18:59:38 CDT CPT-75451 Level 3 Est. Patient Joseph [facility] 14:42:12 CDT -[facility] CPT-15610 Level [address] [facility] 22:18:20 CDT -[facility] CPT-40165 Level 3 Est. Patient Joseph Pineda [facility] 16:46:04 CDT -[facility]HC CPT-99062 Level 3 Est. Patient Joseph Pineda [facility] 15:39:53 CDT -[facility] CPT-16545 Level 3 Est. Patient Maite Sanchez MD PhD [facility] 13:33:34 CDT -[facility] CPT-28338 Level 3 Est. Patient Joseph Pineda [facility] 11:37:08 CDT -[facility] CPT-10512 Level 3 Est. Patient Joseph Pineda [facility] 17:13:29 DIRECTOR OF CODING -[facility]HC CPT-10202 Level 3 Est. Patient Joseph Trivedi [facility] 18:42:44 CDT CPT-98156 Level 3 Est. Patient Joseph Trivedi [facility] 16:25:39 CDT CPT-74982 Level 3 Est. Patient Casey [facility] 09:52:45 CDT -[facility] CPT-56340 Level 3 Est. Patient Joseph Trivedi [facility] 11:03:29 DIRECTOR OF CODING -RHC CPT-37493 Level 3 Est. Patient Joseph Pineda [facility] 11:03:08 DIRECTOR OF CODING -RHC CPT-43341 Level 3 Est. Patient Joseph Trivedi [facility] 14:33:31 CDT -RHC CPT-40465 Level 3 Est. Patient Joseph Pineda [facility] 17:05:02 DIRECTOR OF CODING -RHC CPT-87208 Level 3 Est. Patient Joseph Pineda [facility] 17:48:06 DIRECTOR OF CODING -RHC CPT-06865 Level 3 Est. Patient Joseph Pineda [facility] 14:59:22 DIRECTOR OF CODING -RHC CPT-78738 Level 3 Est. Patient Joseph Pineda [facility] - 21:45:56 DIRECTOR OF CODING [place] [facility] CPT-97287 Level 3 Est. Patient Joseph Pineda [facility] 21:29:50 CDT -RHC CPT-72567 Level 3 Est. Patient Joseph Pineda [facility] 12:41:09 CDT -RHC Procedures Code Procedure Name Date Entry Date Standard Description CPT-74400 Wet Mount - LAB USE ONLY 12:39:03 DIRECTOR OF CODING CPT-19517 Vaginal Culture - LAB USE ONLY 12:39:03 DIRECTOR OF CODING CPT-46214 Urine Culture - LAB USE ONLY 11:52:44 DIRECTOR OF CODING CPT-33683 UA w micro - LAB USE ONLY 11:52:44 DIRECTOR OF CODING CPT-28563 Postop F/U Visit 12:08:35 CDT CPT-42256 Postop F/U Visit 18:20:10 CDT CPT-A4351 Coloplast Female Cath 09:37:10 CDT CPT-64594 Urine Dip (Floor Use Only) 15:17:13 CDT CPT-66177 Dil F ureth int 15:17:13 CDT CPT-65240 Venipuncture Draw Fee 09:19:08 CDT CPT-42337 Lipid - LAB USE ONLY 09:19:07 CDT CPT-JTINJ Asp/Joint Injection 09:26:49 CDT CPT-98254 Chest 2V Frontal and Lat 14:47:43 CDT CPT-JTINJ Asp/Joint Injection 09:51:53 DIRECTOR OF CODING CPT-OV Office Visit 17:39:05 CDT CPT-OV Office Visit 15:19:50 CDT CPT-77925 Sono transvag pelvis non OB uterus ovaries cervix 18:04:34 CDT CPT-75076 Venipuncture Draw Fee 08:55:49 DIRECTOR OF CODING
--- OUTSIDE RECORDS SUMMARY | 2016-11-20 13:41 | External Medical Summary | Clinical Summary ---
:1965 Author Organization [facility] Address [address] [address] Phone Allergies, Adverse Reactions, Alerts Allergy Name Reaction Description Start Date Severity Status Provider VERSED States jsut about Critical Active Gloria Saavedra MILEAGE CLERK killed her NKDA Critical Active Indigo Yokum CARPENTER REPAIR NKDA Critical No Longer Indigo Yokum CARPENTER REPAIR Active NKDA Critical Inactive Adrianna Elder Conditions [...] Resolved Indigo Other malaise 05/24 07/02 Yokum CARPENTER REPAIR and fatigue SLEEP APNEA, 327.23 Active Joseph Pineda Obstructive OBSTRUCTIVE, 06/27 06/27 Farooq DO sleep apnea MILD (adult) (pediatric) OVERWEIGHT 278.02 Inactive Joseph Pineda Overweight 06/28 06/28 Farooq DO Obesity 278.00 Active Indigo Obesity, 06/28 10/18 Yokum CARPENTER REPAIR unspecified OTH GENERAL V70.3 Resolved Maite Gutierrez Other general MEDICAL Larua ONEAL medical EXAMINATION PhD examination for ADMIN administrative PURPOSES purposes OTHER 790.29 Resolved Maite C Other abnormal ABNORMAL 05/20 Laura ONEAL glucose GLUCOSE PhD ACUTE 466.0 Resolved Maite Gutierrez Acute bronchitis BRONCHITIS 09/02 Laura ONEAL PhD DEPENDENT 782.3 Resolved Indigo Edema EDEMA, LEGS, 10/29 10/18 Yokum CARPENTER REPAIR BILATERAL HYPOKALEMIA, 276.8 Resolved Indigo Hypopotassemia MILD 10/29 07/02 Yokum CARPENTER REPAIR Diabetes, 250.00 Inactive Joseph Pineda Diabetes Type 2 06/27 06/27 Farooq DO mellitus without mention of complication, type II or unspecified type, not stated as uncontrolled Diabetes 250.02 Resolved Indigo Diabetes mellitus, 06/27 10/18 Yokum CARPENTER REPAIR mellitus without type II, mention of uncontrolled [...] Resolved Indigo Routine gynecological 12/14 07/02 Yokum CARPENTER REPAIR gynecological examination examination Postmenopausa 627.1 Resolved Indigo Postmenopausal l bleeding 12/14 07/02 Yokum CARPENTER REPAIR bleeding Screening for V76.51 Resolved Indigo Screening for malignant 12/26 07/02 Yokum CARPENTER REPAIR malignant neoplasms of neoplasms of colon colon Insomnia, 307.42 Active Indigo 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 sleep Establish V68.89 Resolved Indigo Encounters for care or get 01/16 07/02 Yokum CARPENTER REPAIR other specified acquainted administrative visit purpose Weakness, 342.90 Resolved Indigo Hemiplegia, left side of 06/20 10/18 Yokum CARPENTER REPAIR unspecified, body affecting unspecified side TIA 435.9 Active Indigo Unspecified 06/20 07/02 Yokum CARPENTER REPAIR transient cerebral ischemia Knee pain, 719.46 Active Indigo Pain in joint bilateral 06/20 10/18 Yokum CARPENTER REPAIR involving lower leg Bronchitis 490 Resolved Indigo Bronchitis, not 07/23 10/18 Yokum CARPENTER REPAIR specified as acute or chronic Diabetes 357.2 Active Maliheh Polyneuropathy mellitus, 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 Knee pain, 719.46 Active Indigo Pain in joint right 06/20 10/18 Yokum CARPENTER REPAIR involving lower leg Jesi 112.3 Active Indigo Candidiasis of intertrigo 10/09 10/18 Yokum CARPENTER REPAIR skin and nails Hyperlipidemi 272.4 Active Anne Other and a 12/24 12/24 Neil unspecified RMA hyperlipidemia Incontinence, 788.33 Active Indigo Mixed mixed, 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 CARPENTER REPAIR incontinence urge/stress (female) (male) Female stress 625.6 Active Yury Monaco Stress incontinence 01/03 01/03 Cy patel MD female Vaginal odor 623.8 Active Gloria Other specified 05/28 05/28 Naff MILEAGE CLERK noninflammatory disorders of vagina Urinary tract 599.0 Active Indigo Urinary tract infection 05/28 05/28 Yok CARPENTER REPAIR infection, site not specified Urine odor 791.9 Active Indigo Other 05/28 06/26 Yokum CARPENTER REPAIR nonspecific findings on examination of urine ABNORMAL VAGINAL ICD-626.9 Inactive Maite Sanchez BLEEDING PhD SCABIES ICD-133.0 Inactive Maite Sanchez PhD FATIGUE ICD-780.79 Inactive Indigo [facility] CARPENTER REPAIR OTH GENERAL ICD-V70.3 Inactive Maite Sanchez MEDICAL PhD EXAMINATION ADMIN PURPOSES OTHER ABNORMAL ICD-790.29 Inactive Maite Sanchez GLUCOSE MD PhD ACUTE BRONCHITIS ICD-466.0 Inactive Maite Sanchez PhD DEPENDENT EDEMA, ICD-782.3 Inactive Indigo Yokum LEGS, BILATERAL CARPENTER REPAIR HYPOKALEMIA, MILD ICD-276.8 Inactive Indigo Yokum CARPENTER REPAIR Diabetes mellitus, ICD-250.02 Inactive Indigo Yokum type II, CARPENTER REPAIR uncontrolled Sinusitis, ICD-461.1 Inactive Ismael Coyne frontal, acute Amandeep ONEAL Laryngitis, acute ICD-464.00 Inactive Ismael Coyne Amandeep ONEAL Routine ICD-V72.31 Inactive Indigo Yokum gynecological CARPENTER REPAIR examination Postmenopausal ICD-627.1 Inactive Indigo Yokum 2015 bleeding CARPENTER REPAIR Screening for ICD-V76.51 Inactive Indigo Yokum 2015 malignant CARPENTER REPAIR neoplasms of colon Establish care or ICD-V68.89 Inactive Indigo Yokum get acquainted CARPENTER REPAIR visit Weakness, left ICD-342.90 Inactive Indigo Yokum side of body CARPENTER REPAIR Bronchitis ICD-490 Inactive Indigo Yokum CARPENTER REPAIR Medication List Medication Instructions Start Stop Generic NDC Status Provider Patient Date Date Name Instruction REGINALDRE 5 1 tablet SOLIFENACIN 95544275911 Active J Carlos Enrique Active MG TABS daily SUCCINATE Cy ONEAL CIPRO 250 MG 1 tablet 2 CIPROFLOXACIN 79287303130 No Indigo Active TAB by mouth 0 HCL Longer Yokum twice 1 Active CARPENTER REPAIR daily 7 METFORMIN 2 tablets 2 METFORMIN HCL 92032354071 No Indigo Active HCL 500 MG by mouth 0 Longer Yokum TB24 twice 1 Active CARPENTER REPAIR daily 2 AMARYL 1 MG 1 tablet 2 GLIMEPIRIDE 73252890303 No Indigo Active ORAL TABS orally 0 Longer Yokum twice 1 Active CARPENTER REPAIR daily 2 NYSTATIN apply to NYSTATIN 96124581890 Active Indigo Active 151645 rash TID Yokum UNIT/GM CREA PRN CARPENTER REPAIR TROKENDI XR 2 tab TOPIRAMATE 70208837400 Active Maliheh Active 100 MG ORAL daily Ziglari [id number] RIGGER METOPROLOL 1 tab po METOPROLOL 91724888578 Active Indigo Active TARTRATE 25 bid TARTRATE Yokum MG TABS CARPENTER REPAIR AZITHROMYCIN 2 po qd x 2 AZITHROMYCIN 50979178663 No Jillina Active 250 MG TABS 1 day, 0 Longer Frazell then 1 po 1 Active CARPENTER REPAIR qd x 4 6 days / 0 3 / 2 6 PREDNISONE 2 pills 2 PREDNISONE 33228361241 No Jillina Active 20 MG TAB daily x 4 0 Longer [place] days 1 Active CARPENTER REPAIR 6 / 0 3 / 2 5 PIOGLITAZONE take one a PIOGLITAZONE 40318553719 Active Maliheh Active HCL 30 MG day HCL Ziglari ORAL TABS RIGGER JANUVIA 100 1 tablet 2 SITAGLIPTIN 22153194724 No Indigo Active MG TABS by mouth 0 PHOSPHATE Longer Yokum daily 1 Active CARPENTER REPAIR 6 / 0 2 / 1 6 ATORVASTATIN 1 pill by ATORVASTATIN 19599103195 Active Indigo Active CALCIUM 10 mouth CALCIUM Yokum MG TABS nightly, CARPENTER REPAIR for cholestero l ASPIRIN 81 1 po qd ASPIRIN 05439107194 Active Indigo Active MG ORAL TABS Yokum CARPENTER REPAIR NITROFURANTO One 2 NITROFURANTOIN 36898981912 No Indigo Active IN MONOHYD capsule 0 MONOHYD MACRO Longer Yokum MACRO 100 MG BID for 1 Active CARPENTER REPAIR CAPS UTI 6 / 0 / 3 TRAMADOL HCL 1/2 po tid 2 TRAMADOL HCL 33598474073 No Jillina Active 50 MG TABS with ES 0 Longer [place] Tylenol 1 Active CARPENTER REPAIR prn pain 5 / 0 2 VYVANSE 20 1 tablet 2 LISDEXAMFETAMIN 83177609949 No Jillina Active MG ORAL CAPS daily for 0 E DIMESYLATE Longer [place] binge 1 Active CARPENTER REPAIR eating 5 disorder / 0 2 LASIX 20 MG 2 tablet FUROSEMIDE 66305623535 Active Indigo Active TAB by mouth Yokum daily CARPENTER REPAIR CELEBREX 200 1 tablet CELECOXIB 24024356703 Active Indigo Active MG CAPS by mouth Yokum daily with CARPENTER REPAIR meals PREDNISONE 2 tablets 2 PREDNISONE 78941546709 No Joseph W Active 20 MG TAB today, 0 Longer Farooq DO then 1 1 Active tablet 5 days 2-4 / 0 4 / 1 3 DIFLUCAN 100 1 tablet 2 FLUCONAZOLE 21020226174 No Joseph W Active MG TAB by mouth 0 Longer Farooq DO daily x 3 1 Active days 5 / 0 4 / 1 3 DIFLUCAN 100 1 tablet 2 FLUCONAZOLE 24719391014 No Joseph W Active MG TABS by mouth 0 Longer Farooq DO every 1 Active other day 5 for 2 / doses 0 1 / 2 3 ZOFRAN 4 MG 1 po q6hr ONDANSETRON HCL 09070712156 Active Joseph W Active TABS PRN Nausea Farooq DO PREDNISONE 2 tabs 2 PREDNISONE 24098284145 No Joseph W Active 20 MG TAB daily for 0 Longer Farooq DO 3 days, 1 1 Active tab daily 4 for 3 / days, 1/2 1 tab daily 0 for 2 days / 2 5 AMOXICILLIN 2 po BID x 2 AMOXICILLIN 89406817275 No Maite C Active 500 MG CAPS 10 days 0 Longer Laura ONEAL 1 Active PhD 0 / 2 0 LISINOPRIL 1 tablet 2 LISINOPRIL 08057216136 No Maite C Active 20 MG TABS by mouth 0 Longer Kimberlyl MD daily 1 Active PhD 0 / 0 POTASSIUM 2 capsule 2 POTASSIUM 54185890499 No Joseph W Active CHLORIDE CR by mouth 0 CHLORIDE Longer Farooq DO 10 MEQ CPCR daily 1 Active 4 / 0 8 / 2 9 SPIRONOLACTO 1 tablet 2 SPIRONOLACTONE 29134325528 No Joseph W Active NE 25 MG TAB by mouth 0 Longer Farooq DO daily 1 Active 4 / 0 8 2 9 METFORMIN 1 tablet 2 METFORMIN HCL 17568744332 No Joseph W Active HCL 500 MG by mouth 0 Longer Farooq DO TABS twice 1 Active daily 4 / 0 8 / 2 9 AMARYL 1 MG 1 tab 2 GLIMEPIRIDE 26482015032 No Joseph W Active TABS twice 0 Longer Farooq DO daily 1 Active 4 / 0 8 / 2 9 PHENTERMINE 1 po q am 2 PHENTERMINE HCL 16871008231 No Joseph W Active HCL 37.5 MG for wt. 0 Longer Farooq DO TABS loss 1 Active 3 / 1 2 / 2 3 PROMETHAZINE 1 tab by 2 PROMETHAZINE 69456518570 No Joseph W Active HCL 25 MG mouth 0 HCL Longer Farooq DO TABS every 6 1 Active hours as 3 needed / 0 9 / 0 9 CIPROFLOXACI Take one 2 CIPROFLOXACIN 60032217106 No Joseph W Active N HCL 500 MG (1) tablet 0 HCL Longer Farooq DO TABS by mouth 1 Active twice a 3 day / 0 9 / 0 9 ABILIFY 5 MG one p.o. 2 ARIPIPRAZOLE 58816455284 No Joseph W Active TABS q. day 0 Longer Faoroq DO 1 Active 3 / 0 9 / 0 9 HYDROCHLOROT 2 tabs 2 HYDROCHLOROTHIA 44192604554 No Joseph W Active HIAZIDE 25 every 0 ZIDE Longer Farooq DO MG TABS morning 1 Active 3 / 0 6 / 2 7 ABILIFY 2 MG 1 po q hs 2 ARIPIPRAZOLE 42152593710 No Joseph W Active TABS for major 0 Longer [facility] depression 1 Active 3 / 0 5 / 0 7 ADIPEX-P 1/2 tab po 2 PHENTERMINE HCL 94518592364 No Casey Active 37.5 MG CAPS q am for 0 Longer [facility] weight 1 Active loss 3 / 0 5 / 0 1 CIPRO 500 MG 1 tablet 2 CIPROFLOXACIN 80307754763 No Casey Active TAB by mouth 0 HCL Longer [facility] twice 1 Active daily 3 / 0 5 / 0 1 NECON 1 po daily 2 NORETHINDRONE-E 94519456398 No Casey Active () - 0 ESTRADIOL Longer [facility] MG-MCG TABS 1 Active 3 / 0 5 / 0 1 TRAMADOL HCL 1 po tid 2 TRAMADOL HCL 85206767233 No Casey Active 50 MG TABS with ES 0 Longer [facility] Tylenol 1 Active 3 / 0 5 / 0 1 FLUCONAZOLE one p.o. 2 FLUCONAZOLE 55750996298 No Casey Active 100 MG TABS q. day 2 0 Longer [facility] days 1 Active 3 / 0 5 / 0 1 POTASSIUM 1 capsule 2 POTASSIUM 56546097044 No Casey Active CHLORIDE CR by mouth 0 CHLORIDE Longer [facility] 10 MEQ CPCR daily 1 Active 3 / 0 5 / 0 1 IMIPRAMINE Take 6 IMIPRAMINE HCL 63596269682 Active Indigo Active HCL 50 MG tablets by Yokum TABS mouth at CARPENTER REPAIR bedtime DIFLUCAN 100 1 tablet 2 FLUCONAZOLE 00314877452 No Joseph W Active MG TAB by mouth 0 Longer [facility] daily 1 Active 2 / 0 2 / 2 4 VERAPAMIL 2 po bid VERAPAMIL HCL 54634652353 Active Indigo Active HCL CR 120 Yokum MG TAB CR CARPENTER REPAIR PERMETHRIN 5 apply neck 2 PERMETHRIN 80214996210 No Joseph W Active % CREA to toes 0 Longer [facility] tonight 1 Active and then 2 rinse off / in 0 morning. 1 repeat at / 7 days 2 0 SEROQUEL XR one p.o. 2 QUETIAPINE 75627129207 No Joseph W Active 50 MG q. evening 0 FUMARATE Longer Farooq DO [id number] 1 Active 2 / 0 1 / 2 0 TRAMADOL HCL 1-2 2 TRAMADOL HCL 27956731954 No Joseph W Active 50 MG TABS tablets 0 Longer Farooq DO every 6-8 1 Active hours as 2 needed for / pain 0 1 / 2 0 ALPRAZOLAM 3 one p.o. ALPRAZOLAM 76599935035 Active Indigo Active MG [id number] q.h.s. Yokum CARPENTER REPAIR ALPRAZOLAM Take 1 2 ALPRAZOLAM 73151931571 No Joseph W Active XR [id number] tablet by 0 [id number] Longer Farooq DO mouth at 1 Active bedtime 1 / 2 9 DIFLUCAN 100 1 tablet 2 FLUCONAZOLE 46959230908 No Joseph W Active MG TAB by mouth 0 Longer Farooq DO daily 1 Active 0 / 0 6 AMBIEN 10 MG 1 tab by ZOLPIDEM 21798217760 Active Indigo Active TAB mouth at TARTRATE Yokum bedtime as CARPENTER REPAIR needed for sleep DIFLUCAN 100 1 tablet DIFLUCAN 288435 FLUCONAZOLE Inactive MG TAB by mouth 100 MG TAB daily ALPRAZOLAM Take 1 ALPRAZOLAM ALPRAZOLAM Inactive XR [id number] tablet by XR [id number] mouth at [id number] bedtime TRAMADOL HCL 1-2 TRAMADOL 708927 TRAMADOL HCL Inactive 50 MG TABS tablets HCL 50 MG every 6-8 TABS hours as needed for pain SEROQUEL XR one p.o. SEROQUEL XR QUETIAPINE Inactive 50 MG q. 50 MG FUMARATE [id number] evening [id number] PERMETHRIN 5 apply PERMETHRIN 848512 PERMETHRIN Inactive % CREA neck to 5 % CREA toes tonight and then rinse off in morning. repeat at 7 days DIFLUCAN 100 1 tablet DIFLUCAN 664340 FLUCONAZOLE Inactive MG TAB by mouth 100 MG TAB daily POTASSIUM 1 capsule POTASSIUM POTASSIUM Inactive CHLORIDE CR by mouth CHLORIDE CR CHLORIDE 10 MEQ CPCR daily 10 MEQ CPCR FLUCONAZOLE one p.o. FLUCONAZOLE 19760111 FLUCONAZOLE Inactive 100 MG TABS q. day 2 100 MG TABS days TRAMADOL HCL 1 po tid TRAMADOL 238221 TRAMADOL HCL Inactive 50 MG TABS with ES HCL 50 MG Tylenol TABS NECON 35 1 po NECON NORETHINDRONE- Inactive () 1-35 daily () 1-35 ETH ESTRADIOL MG-MCG TABS MG-MCG TABS CIPRO 500 MG 1 tablet CIPRO 500 584567 CIPROFLOXACIN Inactive TAB by mouth MG TAB HCL twice daily ADIPEX-P 1/2 tab ADIPEX-P 254420 PHENTERMINE Inactive 37.5 MG CAPS po q am 37.5 MG HCL for CAPS weight loss ABILIFY 2 MG 1 po q hs ABILIFY 2 222624 ARIPIPRAZOLE Inactive TABS for major MG TABS depressio n HYDROCHLOROT 2 tabs HYDROCHLORO 178034 HYDROCHLOROTHI Inactive HIAZIDE 25 every THIAZIDE 25 AZIDE MG TABS morning MG TABS ABILIFY 5 MG one p.o. ABILIFY 5 586854 ARIPIPRAZOLE Inactive TABS q. day MG TABS CIPROFLOXACI Take one CIPROFLOXAC 440792 CIPROFLOXACIN Inactive N HCL 500 MG (1) IN HCL 500 HCL TABS tablet by MG TABS mouth twice a day PROMETHAZINE 1 tab by PROMETHAZIN 101184 PROMETHAZINE Inactive HCL 25 MG mouth E HCL 25 MG HCL TABS every 6 TABS hours as needed PHENTERMINE 1 po q am PHENTERMINE 526454 PHENTERMINE Inactive HCL 37.5 MG for wt. HCL 37.5 MG HCL TABS loss TABS AMARYL 1 MG 1 tab AMARYL 1 MG 19910808 GLIMEPIRIDE Inactive TABS twice TABS daily METFORMIN 1 tablet METFORMIN 306207 METFORMIN HCL Inactive HCL 500 MG by mouth HCL 500 MG TABS twice TABS daily SPIRONOLACTO 1 tablet SPIRONOLACT 586518 SPIRONOLACTONE Inactive NE 25 MG TAB by mouth ONE 25 MG daily TAB POTASSIUM 2 capsule POTASSIUM POTASSIUM Inactive CHLORIDE CR by mouth CHLORIDE CR CHLORIDE 10 MEQ CPCR daily 10 MEQ CPCR LISINOPRIL 1 tablet LISINOPRIL 651887 LISINOPRIL Inactive 20 MG TABS by mouth 20 MG TABS daily DIFLUCAN 100 1 tablet DIFLUCAN 709935 FLUCONAZOLE Inactive MG TABS by mouth 100 MG TABS every other day for 2 doses DIFLUCAN 100 1 tablet DIFLUCAN 318632 FLUCONAZOLE Inactive MG TAB by mouth 100 MG TAB daily x 3 days PREDNISONE 2 tablets PREDNISONE 697181 PREDNISONE Inactive 20 MG TAB today, 20 MG TAB then 1 tablet days 2-4 VYVANSE 20 1 tablet VYVANSE 20 LISDEXAMFETAMI Inactive MG ORAL CAPS daily for MG ORAL NE DIMESYLATE binge CAPS eating disorder TRAMADOL HCL 1/2 po TRAMADOL 278370 TRAMADOL HCL Inactive 50 MG TABS tid [...] TB24 daily AMOXICILLIN 2 po BID AMOXICILLIN 719599 AMOXICILLIN Inactive 500 MG CAPS x 10 days 500 MG CAPS PREDNISONE 2 tabs PREDNISONE 761892 PREDNISONE Inactive 20 MG TAB daily for 20 MG TAB 3 days, 1 tab daily for 3 days, 1/2 tab daily for 2 days NITROFURANTO One NITROFURANT 1972173 NITROFURANTOIN Inactive IN MONOHYD capsule OIN MONOHYD MONOHYD MACRO MACRO 100 MG BID for MACRO 100 CAPS UTI MG CAPS PREDNISONE 2 pills PREDNISONE 090953 PREDNISONE Inactive 20 MG TAB daily x 4 20 MG TAB days AZITHROMYCIN 2 po qd x AZITHROMYCI 4148696 AZITHROMYCIN Inactive 250 MG TABS 1 day, N 250 MG then 1 po TABS qd x 4 days CIPRO 250 MG 1 tablet CIPRO 250 595643 CIPROFLOXACIN Inactive TAB by mouth MG TAB [...] HGBA1C - Chemistry sodium, serum 140 mmol/L 633-965 0776/06/03 potassium, serum 3.9 mmol/L 3.5-5.2 chloride, serum 105 mmol/L 98-107 carbon dioxide, venous blood 29.4 mmol/L 21.0-32.0 blood glucose 124 mg/dL 65-110 calcium, serum 8.9 mg/dL 8.5-10.1 urea nitrogen, blood 14 mg/dL 7-18 creatinine, serum 0.88 mg/dL 0.55-1.30 hemoglobin A1C, blood, as % of total hemoglobin 5.7 % 4.3-6.0 Lab Report: Chlamydia/GC APTIMA/[id number] - Lab chlamydia DNA probe NOT DETECTED NOT DETECTED Lab Report: Chlamydia/GC APTIMA/[id number] - Microbiology Neisseria gonorrhoeae DNA probe NOT DETECTED NOT DETECTED Lab Report: Lipid Panel - Chemistry cholesterol, serum 157 mg/dL 730-083 9614/08/22 triglyceride, serum, fasting 215 mg/dL 30-200 HDL [...] mg/dL Encounters Code Encounter Date Provider Facility CPT-66549 Level 4 Est. Patient [facility] - 17:02:40 PUBLICITY AGENT [place] CPT-74040 Level 4 New Patient Yury Benoit MD [facility] 15:17:12 CDT CPT-55638 Level 3 Est. Patient [facility] - 13:37:46 CDT [place] CPT-65739 Level 4 Est. Patient [facility] - 10:01:06 CDT [place] CPT-11091 Level 3 Est. Patient [facility] 08:58:07 CDT RIGGER CPT-02144 Level 3 Est. Patient Faby Marino [facility] 14:40:56 CDT [facility] CPT-15103 Level 4 Est. Patient [facility] 17:29:53 PUBLICITY AGENT RIGGER CPT-05429 Level 4 Est. Patient [facility] 09:51:54 PUBLICITY AGENT CPT-14173 Level 3 Est. Patient [facility] 18:59:38 CDT CPT-53440 Level 3 Est. Patient Joseph Pineda [facility] 14:42:12 CDT -[facility] CPT-66985 Level 3 Est. Patient Joseph Pineda [facility] 22:18:20 CDT -[facility] CPT-92495 Level 3 Est. Patient Joseph Pineda [facility] 16:46:04 CDT -[facility] CPT-26094 Level 3 Est. Patient Joseph Edwin [facility] 15:39:53 CDT -[facility] CPT-61863 Level 3 Est. Patient Maite Sanchez MD [facility] 13:33:34 CDT -[facility] CPT-22315 Level 3 Est. Patient Joseph Pineda [facility] 11:37:08 CDT -[facility] CPT-86307 Level 3 Est. Patient Joseph Edwin [facility] 17:13:29 PUBLICITY AGENT -[facility] CPT-05674 Level 3 Est. Patient Joseph Pineda [facility] 18:42:44 CDT CPT-07225 Level 3 Est. Patient Joseph Edwin [facility] 16:25:39 CDT CPT-06478 Level 3 Est. Patient Casey Brower [facility] 09:52:45 CDT -[facility] CPT-36069 Level 3 Est. Patient Joseph Pineda [facility] 11:03:29 PUBLICITY AGENT -[facility] CPT-92278 Level 3 Est. Patient Joseph Pineda [facility] 11:03:08 PUBLICITY AGENT -RHC CPT-65735 Level 3 Est. Patient Joseph Edwin [facility] 14:33:31 CDT -R[facility] CPT-50201 Level 3 Est. Patient Joseph Pineda [facility] 17:05:02 PUBLICITY AGENT -[facility] CPT-68424 Level 3 Est. Patient Joseph Edwin [facility] 17:48:06 PUBLICITY AGENT -RHC CPT-75072 Level 3 Est. Patient Joseph [facility] 14:59:22 PUBLICITY AGENT -RHC CPT-68110 Level 3 Est. Patient Joseph [facility] - 21:45:56 PUBLICITY AGENT [place] [facility] CPT-10524 Level 3 Est. Patient Joseph [facility] 21:29:50 CDT -[facility] CPT-85643 Level 3 Est. Patient Joseph Pineda [facility] 12:41:09 CDT -[facility] Procedures Code Procedure Name Date Entry Date Standard Description CPT-14010 Wet [place] - LAB USE ONLY 12:39:03 PUBLICITY AGENT CPT-07017 Vaginal Culture - LAB USE ONLY 12:39:03 PUBLICITY AGENT CPT-82432 Urine Culture - LAB USE ONLY 11:52:44 PUBLICITY AGENT CPT-97460 UA w micro - LAB USE ONLY 11:52:44 PUBLICITY AGENT CPT-66525 Postop F/U Visit 12:08:35 CDT CPT-42452 Postop F/U Visit 18:20:10 CDT CPT-A4351 [facility] Female Cath 09:37:10 CDT CPT-28657 Urine Dip (Floor Use Only) 15:17:13 CDT CPT-13396 Dil F ureth int 15:17:13 CDT CPT-62367 Venipuncture Draw Fee 09:19:08 CDT CPT-27671 Lipid - LAB USE ONLY 09:19:07 CDT CPT-JTINJ Asp/Joint Injection 09:26:49 CDT CPT-92017 Chest 2V Frontal and Lat 14:47:43 CDT CPT-JTINJ Asp/Joint Injection 09:51:53 PUBLICITY AGENT CPT-OV Office Visit 17:39:05 CDT CPT-OV Office Visit 15:19:50 CDT CPT-91265 Sono transvag pelvis non OB uterus ovaries cervix 18:04:34 CDT CPT-97182 Venipuncture Draw Fee 08:55:49 PUBLICITY AGENT
--- OUTSIDE RECORDS SUMMARY | 2016-11-20 13:41 | External Medical Summary | Clinical Summary ---
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 disorder, not elsewhere classified SCABIES 133.0 Resolved Maite Gutierrez Scabies 06/23 Laura ONEAL PhD HYPERTENSION 401.9 Active Joseph Pineda Unspecified 05/24 Farooq DO essential hypertension FATIGUE 780.79 Resolved Indigo Other malaise 05/24 07/02 Yokum GIVER and fatigue SLEEP APNEA, 327.23 Active Joseph Pineda Obstructive OBSTRUCTIVE, 06/27 06/27 Farooq DO sleep apnea MILD (adult) (pediatric) OVERWEIGHT 278.02 Inactive Joseph Pineda Overweight 06/28 06/28 Farooq DO Obesity 278.00 Active Indigo Obesity, 06/28 10/18 Yokum GIVER unspecified OT GENERAL V70.3 Resolved Maite C Other general MEDICAL Laura ONEAL medical EXAMINATION PhD examination for ADMIN administrative PURPOSES purposes OTHER 790.29 Resolved Maite C Other abnormal ABNORMAL 05/20 Laura ONEAL glucose GLUCOSE PhD ACUTE 466.0 Resolved Maite Gutierrez Acute bronchitis BRONCHITIS 09/02 Laura ONEAL PhD DEPENDENT 782.3 Resolved Indigo Edema EDEMA, LEGS, 10/29 10/18 Yokum GIVER BILATERAL HYPOKALEMIA, 276.8 Resolved Indigo Hypopotassemia MILD 10/29 07/02 Yo GIVER Diabetes, 250.00 Inactive Joseph Pineda Diabetes Type 2 06/27 06/27 Farooq DO mellitus without mention of complication, type II or unspecified type, not stated as uncontrolled Diabetes 250.02 Resolved Indigo Diabetes mellitus, 06/27 10/18 Yokum GIVER mellitus without type II, mention of uncontrolled [...] Resolved Indigo Routine gynecological 12/14 07/02 Yo GIVER gynecological examination examination Postmenopausa 627.1 Resolved Indigo Postmenopausal l bleeding 12/14 07/02 Yokum GIVER bleeding Screening for V76.51 Resolved Indigo Screening for malignant 12/26 07/02 Yokum GIVER malignant neoplasms of neoplasms of colon colon Insomnia, 307.42 Active 2015/0 Indigo 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 Establish V68.89 Resolved Indigo Encounters for care or get 01/16 07/02 Yokum GIVER other specified acquainted administrative visit purpose Weakness, 342.90 Resolved Indigo Hemiplegia, left side of 06/20 10/18 Yokum GIVER unspecified, body affecting unspecified side TIA 435.9 Active Indigo Unspecified 06/20 07/02 Yokum GIVER transient cerebral ischemia Knee pain, 719.46 Active Indigo Pain in joint bilateral 06/20 10/18 Yokum GIVER involving lower leg Bronchitis 490 Resolved Indigo Bronchitis, not 07/23 10/18 Yokum GIVER specified as acute or chronic Diabetes 357.2 Active Maliheh Polyneuropathy mellitus, 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 TABLET COATER 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 y Knee pain, 719.46 Resolved Indigo Pain in joint right 06/20 09/20 Yokum GIVER involving lower leg Jesi 112.3 Resolved Indigo Candidiasis of intertrigo 10/09 09/20 Yokum GIVER skin and nails Hyperlipidemi 272.4 Active Anne Other and a 12/24 12/24 Neil unspecified RMA hyperlipidemia Incontinence, 788.33 Resolved Indigo Mixed mixed, 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 GIVER incontinence urge/stress (female) (male) Female stress 625.6 Active Yury Monaco Stress incontinence 01/03 01/03 Cy patel MD female Vaginal odor 623.8 Resolved Indigo Other specified 05/28 09/20 Yokum GIVER noninflammatory disorders of vagina Urinary tract 599.0 Resolved Indigo Urinary tract infection 05/28 09/20 Yokum GIVER infection, site not specified Urine odor 791.9 Resolved Indigo Other 05/28 09/20 Yokum GIVER nonspecific findings on examination of urine Unspecified Resolved Indigo dyspareunia 08/19 09/20 Yokum GIVER Depression Resolved Indigo 09/20 Yokum GIVER Anxiety Active Indigo Anxiety state, Disorder 08/26 GIVER unspecified ABNORMAL VAGINAL ICD-626.9 Inactive Maite C Laura BLEEDING PhD SCABIES ICD-133.0 Inactive Maite C Laura PhD FATIGUE ICD-780.79 Inactive Indigo Yokum GIVER OTH GENERAL ICD-V70.3 Inactive Maite C Laura MEDICAL MD PhD EXAMINATION ADMIN PURPOSES OTHER ABNORMAL ICD-790.29 Inactive Maite C Ronyril GLUCOSE PhD ACUTE BRONCHITIS ICD-466.0 Inactive Maite C Laura PhD DEPENDENT EDEMA, ICD-782.3 Inactive Indigo Yokum LEGS, BILATERAL GIVER HYPOKALEMIA, MILD ICD-276.8 Inactive Indigo Yokum GIVER Diabetes mellitus, ICD-250.02 Inactive Indigo Yokum type II, GIVER uncontrolled Sinusitis, ICD-461.1 Inactive Ismael Coyne frontal, acute Amandeep ONEAL Laryngitis, acute ICD-464.00 Inactive Ismael Coyne Amandeep ONEAL Routine ICD-V72.31 Inactive Indigo Yokum gynecological GIVER examination Postmenopausal ICD-627.1 Inactive Indigo Yokum 2015 bleeding GIVER Screening for ICD-V76.51 Inactive Indigo Yokum 2015 malignant GIVER neoplasms of colon Establish care or ICD-V68.89 Inactive Indigo Yokum get acquainted GIVER visit Weakness, left ICD-342.90 Inactive Indigo Yokum side of body GIVER Bronchitis ICD-490 Inactive Indigo Yokum GIVER Knee pain, right ICD-719.46 Inactive Indigo Yokum GIVER Jesi intertrigo ICD-112.3 Inactive Indigo Yokum GIVER Incontinence, ICD-788.33 Inactive Indigo Yokum 2016 mixed, urge/stress GIVER Vaginal odor ICD-623.8 Inactive Indigo Yokum 09/20 GIVER Urinary tract ICD-599.0 Inactive Indigo Yokum 09/20 infection GIVER Urine odor ICD-791.9 Inactive Indigo Yokum GIVER Unspecified Inactive Indigo Yokum dyspareunia GIVER Depression Inactive Indigo Yokum GIVER Medication List Medication Instructions Start Stop Generic NDC Status Provider Patient Date Date Name Instruction ALPRAZOLAM 3 one p.o. ALPRAZOLAM 43972183785 Active Indigo Active MG [id number] q.h.s. Yokum GIVER ABILIFY 10 MG Take one ARIPIPRAZOLE 91380923319 Active Indigo Active ORAL TABS tablet Yokum daily for GIVER depression CELEBREX 200 1 tablet 2 CELECOXIB 10160717064 No Indigo Active MG CAPS by mouth 0 Longer Yokum daily with 1 Active GIVER meals 7 / 0 4 / 2 4 TROKENDI XR 1 tab by 2 TOPIRAMATE 67794831443 No Indigo Active 100 MG ORAL mouth 0 Longer Yokum [id number] daily 1 Active GIVER 7 0 4 VESICARE 10 MG 1 pill by SOLIFENACIN 55988634488 Active J Carlos Enrique Active TABS mouth SUCCINATE Benoit daily for MD overactive bladder CIPRO 250 MG 1 tablet 2 CIPROFLOXACIN 02964915466 No Indigo Active TAB by mouth 0 HCL Longer Yokum twice 1 Active GIVER daily 7 METFORMIN HCL 2 tablets 2 METFORMIN HCL 50653183036 No Indigo Active 500 MG TB24 by mouth 0 Longer Yokum twice 1 Active GIVER daily 2 AMARYL 1 MG 1 tablet 2 GLIMEPIRIDE 55139482691 No Indigo Active ORAL TABS orally 0 Longer Yokum twice 1 Active GIVER daily 2 NYSTATIN apply to NYSTATIN 75738264699 Active Indigo Active 455817 UNIT/GM rash TID Yokum CREA PRN GIVER METOPROLOL 1 tab po METOPROLOL 74076216968 Active Indigo Active TARTRATE 25 MG bid TARTRATE Yokum TABS GIVER AZITHROMYCIN 2 po qd x 2 AZITHROMYCIN 21711557959 No Jillina Active 250 MG TABS 1 day, 0 Longer Frazell then 1 po 1 Active GIVER qd x 4 6 days / 0 3 / 2 6 PREDNISONE 20 2 pills 2 PREDNISONE 90736129163 No Jillina Active MG TAB daily x 4 0 Longer Frazell days 1 Active GIVER 6 / 0 3 / 2 5 PIOGLITAZONE take one a PIOGLITAZONE 71723863622 Active Maliheh Active HCL 30 MG ORAL day HCL Ziglari TABS TABLET COATER JANUVIA 100 MG 1 tablet 2 SITAGLIPTIN 92857992582 No Indigo Active TABS by mouth 0 PHOSPHATE Longer Yokum daily 1 Active GIVER 6 / 0 2 / 1 6 ATORVASTATIN 1 pill by ATORVASTATIN 60968135383 Active Hannah Active CALCIUM 10 MG mouth CALCIUM Neal TABS nightly, GIVER for cholestero l ASPIRIN 81 MG 1 po qd ASPIRIN 01622115884 Active Indigo Active ORAL TABS Yokum GIVER NITROFURANTOIN One 2 NITROFURANTOIN 46184322582 No Indigo Active MONOHYD MACRO capsule 0 MONOHYD MACRO Longer Yokum 100 MG CAPS BID for 1 Active GIVER UTI 6 / 0 2 / 1 3 TRAMADOL HCL 1/2 po tid 2 TRAMADOL HCL 25543763086 No Jillina Active 50 MG TABS with ES 0 Longer Frazell Tylenol 1 Active GIVER prn pain 5 / 0 2 VYVANSE 20 MG 1 tablet 2 LISDEXAMFETAMI 33593180193 No Jillina Active ORAL CAPS daily for 0 NE DIMESYLATE Longer Frazell binge 1 Active GIVER eating 5 disorder / 0 2 LASIX 20 MG 2 tablet FUROSEMIDE 60338322083 Active Ranulfo Villalpando Active TAB by mouth Adams daily PREDNISONE 20 2 tablets 2 PREDNISONE 46489943939 No Joseph W Active MG TAB today, 0 Longer Farooq DO then 1 1 Active tablet 5 days 2-4 / 0 3 DIFLUCAN 100 1 tablet 2 FLUCONAZOLE 71532195344 No Jospeh W Active MG TAB by mouth 0 Longer Farooq DO daily x 3 1 Active days 5 / 0 1 3 DIFLUCAN 100 1 tablet 2 FLUCONAZOLE 75852668291 No Joseph W Active MG TABS by mouth 0 Longer Farooq DO every 1 Active other day 5 for 2 / doses 0 1 / 2 3 ZOFRAN 4 MG 1 po q6hr ONDANSETRON 91457415465 Active Joseph W Active TABS PRN Nausea HCL Farooq DO PREDNISONE 20 2 tabs 2 PREDNISONE 87821291350 No Joseph W Active MG TAB daily for 0 Longer Farooq DO 3 days, 1 1 Active tab daily 4 for 3 / days, 1/2 1 tab daily 0 for 2 days / 2 5 AMOXICILLIN 2 po BID x 2 AMOXICILLIN 37508825375 No Maite C Active 500 MG CAPS 10 days 0 Longer Madril 1 Active PhD 4 / 1 0 / 2 0 LISINOPRIL 20 1 tablet 2 LISINOPRIL 56832775980 No Maite C Active MG TABS by mouth 0 Longer Madril daily 1 Active PhD 4 / 0 / 1 0 POTASSIUM 2 capsule 2 POTASSIUM 51722685034 No Joseph W Active CHLORIDE CR 10 by mouth 0 CHLORIDE Longer Farooq DO MEQ CPCR daily 1 Active 4 / 0 8 / 2 9 SPIRONOLACTONE 1 tablet 2 SPIRONOLACTONE 86826440629 No Joseph W Active 25 MG TAB by mouth 0 Longer Farooq DO daily 1 Active 4 / 0 8 / 2 9 METFORMIN HCL 1 tablet 2 METFORMIN HCL 32465413509 No Joseph W Active 500 MG TABS by mouth 0 Longer Farooq DO twice 1 Active daily 4 / 0 8 / 2 9 AMARYL 1 MG 1 tab 2 GLIMEPIRIDE 71383159173 No Joseph W Active TABS twice 0 Longer Farooq DO daily 1 Active 4 / 0 8 / 2 9 PHENTERMINE 1 po q am 2 PHENTERMINE 73655355615 No Joseph W Active HCL 37.5 MG for wt. 0 HCL Longer Farooq DO TABS loss 1 Active 3 / 1 2 / 2 3 PROMETHAZINE 1 tab by 2 PROMETHAZINE 33583410134 No Joseph W Active HCL 25 MG TABS mouth 0 HCL Longer Farooq DO every 6 1 Active hours as 3 needed / 0 9 / 0 9 CIPROFLOXACIN Take one 2 CIPROFLOXACIN 38644463559 No Joseph W Active HCL 500 MG (1) tablet 0 HCL Longer Farooq DO TABS by mouth 1 Active twice a 3 day / 0 9 / 0 9 ABILIFY 5 MG one p.o. 2 ARIPIPRAZOLE 34927712001 No Joseph W Active TABS q. day 0 Longer Farooq DO 1 Active 3 / 0 9 / 0 9 HYDROCHLOROTHI 2 tabs 2 HYDROCHLOROTHI 62334396064 No Joseph W Active AZIDE 25 MG every 0 AZIDE Longer Farooq DO TABS morning 1 Active 3 / 0 6 / 2 7 ABILIFY 2 MG 1 po q hs 2 ARIPIPRAZOLE 17473498919 No Joseph W Active TABS for major 0 Longer Farooq DO depression 1 Active 3 / 0 5 / 0 7 ADIPEX-P 37.5 1/2 tab po 2 PHENTERMINE 05499937668 No Casey Active MG CAPS q am for 0 HCL Longer weight 1 Active PA loss 3 / 0 5 / 0 1 CIPRO 500 MG 1 tablet 2 CIPROFLOXACIN 29893514907 No Casey Active TAB by mouth 0 HCL Longer Leonarda twice 1 Active PA daily 3 / 0 5 / 0 1 NECON 1 po daily 2 NORETHINDRONE- 78094602099 No Casey Active () 1-35 0 ETH ESTRADIOL Longer MG-MCG TABS 1 Active PA 3 / 0 5 / 0 1 TRAMADOL HCL 1 po tid 2 TRAMADOL HCL 46386384684 No Casey Active 50 MG TABS with ES 0 Longer Tylenol 1 Active PA 3 / 0 5 / 0 1 FLUCONAZOLE one p.o. 2 FLUCONAZOLE 51957601179 No Casey Active 100 MG TABS q. day 2 0 Longer days 1 Active PA 3 / 0 5 / 0 1 POTASSIUM 1 capsule 2 POTASSIUM 84541070097 No Casey Active CHLORIDE CR 10 by mouth 0 CHLORIDE Longer MEQ CPCR daily 1 Active PA 3 / 0 5 / 0 1 IMIPRAMINE HCL Take 6 IMIPRAMINE HCL 60670074889 Active Indigo Active 50 MG TABS tablets by Yokum mouth at GIVER bedtime DIFLUCAN 100 1 tablet 2 FLUCONAZOLE 25573656779 No Joseph W Active MG TAB by mouth 0 Longer Farooq DO daily 1 Active 2 / 0 2 / 2 4 VERAPAMIL HCL 2 po bid VERAPAMIL HCL 46803843605 Active Indigo Active CR 120 MG TAB Yokum CR GIVER PERMETHRIN 5 % apply neck 2 PERMETHRIN 36114128886 No Joseph W Active CREA to toes 0 Longer Farooq DO tonight 1 Active and then 2 rinse off / in 0 morning. 1 repeat at / 7 days 2 0 SEROQUEL XR 50 one p.o. 2 QUETIAPINE 72803435424 No Joseph W Active MG [id number] q. evening 0 FUMARATE Longer Farooq DO 1 Active 2 / 0 1 / 2 0 TRAMADOL HCL 1-2 2 TRAMADOL HCL 40901900796 No Joseph W Active 50 MG TABS tablets 0 Longer Farooq DO every 6-8 1 Active hours as 2 needed for / pain 0 1 / 2 0 ALPRAZOLAM XR Take 1 2 ALPRAZOLAM 25001382435 No Joseph W Active [id number] tablet by 0 [id number] Longer Farooq DO mouth at 1 Active bedtime 1 / 2 9 DIFLUCAN 100 1 tablet 2 FLUCONAZOLE 54930862090 No Joseph W Active MG TAB by mouth 0 Longer Farooq DO daily 1 Active 0 / 0 6 AMBIEN 10 MG 1 tab by ZOLPIDEM 84788689872 Active Indigo Active TAB mouth at TARTRATE Yokum bedtime as GIVER needed for sleep DIFLUCAN 100 1 tablet DIFLUCAN 752087 FLUCONAZOLE Inactive MG TAB by mouth 100 MG TAB daily ALPRAZOLAM Take 1 ALPRAZOLAM ALPRAZOLAM Inactive XR [id number] tablet by XR [id number] mouth at [id number] bedtime TRAMADOL HCL 1-2 TRAMADOL 682328 TRAMADOL HCL Inactive 50 MG TABS tablets HCL 50 MG every 6-8 TABS hours as needed for pain SEROQUEL XR one p.o. SEROQUEL XR QUETIAPINE Inactive 50 MG q. 50 MG FUMARATE [id number] evening [id number] PERMETHRIN 5 apply PERMETHRIN 078701 PERMETHRIN Inactive % CREA neck to 5 [...] days TRAMADOL HCL 1 po tid TRAMADOL 442799 TRAMADOL HCL Inactive 50 MG TABS with ES HCL 50 MG Tylenol TABS NECON 35 1 po NECON NORETHINDRONE- Inactive (28) 1-35 daily (28) 1-35 ETH ESTRADIOL MG-MCG TABS MG-MCG TABS CIPRO 500 MG 1 tablet CIPRO 500 744717 CIPROFLOXACIN Inactive TAB by mouth MG TAB HCL twice daily ADIPEX-P 1/2 tab ADIPEX-P 713881 PHENTERMINE Inactive 37.5 MG CAPS po q am 37.5 MG HCL for CAPS weight loss ABILIFY 2 MG 1 po q hs ABILIFY 2 847150 ARIPIPRAZOLE Inactive TABS for major MG TABS depressio n HYDROCHLOROT 2 tabs HYDROCHLORO 063211 HYDROCHLOROTHI Inactive HIAZIDE 25 every THIAZIDE 25 AZIDE MG TABS morning MG TABS ABILIFY 5 MG one p.o. ABILIFY 5 080365 ARIPIPRAZOLE Inactive TABS q. day MG TABS CIPROFLOXACI Take one CIPROFLOXAC 003972 CIPROFLOXACIN Inactive N HCL 500 MG (1) IN HCL 500 HCL TABS tablet by MG TABS mouth twice a day PROMETHAZINE 1 tab by PROMETHAZIN 227599 PROMETHAZINE Inactive HCL 25 MG mouth E HCL 25 MG HCL TABS every 6 TABS hours as needed PHENTERMINE 1 po q am PHENTERMINE 894001 PHENTERMINE Inactive HCL 37.5 MG for wt. HCL 37.5 MG HCL TABS loss TABS AMARYL 1 MG 1 tab AMARYL 1 MG 446645 GLIMEPIRIDE Inactive TABS twice TABS daily METFORMIN 1 tablet METFORMIN 030263 METFORMIN HCL Inactive HCL 500 MG by mouth HCL 500 MG TABS twice TABS daily SPIRONOLACTO 1 tablet SPIRONOLACT 088658 SPIRONOLACTONE Inactive NE 25 MG TAB by mouth ONE 25 MG daily TAB POTASSIUM 2 capsule POTASSIUM POTASSIUM Inactive CHLORIDE CR by mouth CHLORIDE CR CHLORIDE 10 MEQ CPCR daily 10 MEQ CPCR LISINOPRIL 1 tablet LISINOPRIL 162069 LISINOPRIL Inactive 20 MG TABS by mouth 20 MG TABS daily DIFLUCAN 100 1 tablet DIFLUCAN 088933 FLUCONAZOLE Inactive MG TABS by mouth 100 MG TABS every other day for 2 doses DIFLUCAN 100 1 tablet DIFLUCAN 089044 FLUCONAZOLE Inactive MG TAB by mouth 100 MG TAB daily x 3 days PREDNISONE 2 tablets PREDNISONE 577428 PREDNISONE Inactive 20 MG TAB today, 20 MG TAB then 1 tablet days 2-4 VYVANSE 20 1 tablet VYVANSE 20 LISDEXAMFETAMI Inactive MG ORAL CAPS daily for MG ORAL NE DIMESYLATE binge CAPS eating disorder TRAMADOL HCL 1/2 po TRAMADOL 796385 TRAMADOL HCL Inactive 50 MG TABS tid with HCL 50 MG ES TABS Tylenol prn pain JANUVIA 100 1 tablet JANUVIA 100 SITAGLIPTIN Inactive MG TABS by mouth MG TABS PHOSPHATE daily AMARYL 1 MG 1 tablet AMARYL 1 MG 632162 GLIMEPIRIDE Inactive ORAL TABS orally ORAL TABS twice daily METFORMIN 2 tablets METFORMIN METFORMIN HCL Inactive HCL 500 MG by mouth HCL 500 MG TB24 twice TB24 daily TROKENDI XR 1 tab by TROKENDI XR TOPIRAMATE Inactive 100 MG ORAL mouth 100 MG ORAL [id number] daily [id number] CELEBREX 200 1 tablet CELEBREX 159980 CELECOXIB Inactive MG CAPS by mouth 200 MG CAPS daily with meals AMOXICILLIN 2 po BID AMOXICILLIN 008165 AMOXICILLIN Inactive 500 MG CAPS x 10 days 500 MG CAPS PREDNISONE 2 tabs PREDNISONE 571295 PREDNISONE Inactive 20 MG TAB daily for 20 MG TAB 3 days, 1 tab daily for 3 days, 1/2 tab daily for 2 days NITROFURANTO One NITROFURANT 6748774 NITROFURANTOIN Inactive IN MONOHYD capsule OIN MONOHYD MONOHYD MACRO MACRO 100 MG BID for MACRO 100 CAPS UTI MG CAPS PREDNISONE 2 pills PREDNISONE 559747 PREDNISONE Inactive 20 MG TAB daily x 4 20 MG TAB days AZITHROMYCIN 2 po qd x AZITHROMYCI 3559554 AZITHROMYCIN Inactive 250 MG TABS 1 day, N 250 MG then 1 po TABS qd x 4 days CIPRO 250 MG 1 tablet CIPRO 250 081521 CIPROFLOXACIN Inactive TAB by mouth MG TAB [...] HGBA1C - Chemistry sodium, serum 140 mmol/L 370-352 7370/06/03 potassium, serum 3.9 mmol/L 3.5-5.2 chloride, serum 105 mmol/L 98-107 carbon dioxide, venous blood 29.4 mmol/L 21.0-32.0 blood glucose 124 mg/dL 65-110 calcium, serum 8.9 mg/dL 8.5-10.1 urea nitrogen, blood 14 mg/dL 7-18 creatinine, serum 0.88 mg/dL 0.55-1.30 hemoglobin A1C, blood, as % of total hemoglobin 5.7 % 4.3-6.0 Lab Report: Chlamydia/GC APTIMA/53370 - Lab chlamydia DNA probe NOT DETECTED NOT DETECTED Lab Report: Chlamydia/GC APTIMA/53055 - Microbiology Neisseria gonorrhoeae DNA probe NOT DETECTED NOT DETECTED Lab Report: Lipid Panel - Chemistry cholesterol, serum 157 mg/dL 868-717 0994/08/22 triglyceride, serum, fasting 215 mg/dL 30-200 HDL [...] mg/dL Encounters Code Encounter Date Provider Facility CPT-97044 Level 4 Est. Patient Indigo Carlie [facility] - 16:58:20 CDT [place] CPT-25120 Level 3 Est. Patient Yury Benoit MD [facility] 17:20:07 CDT CPT-15014 Level 4 Est. Patient Indigomikayla Sexton GIVER [facility] - 17:02:40 CASH CONTROLLER [place] CPT-22344 Level 4 New Patient Yury Benoit MD [facility] 15:17:12 CDT CPT-05449 Level 3 Est. Patient [facility] 13:37:46 CDT [place] CPT-96122 Level 4 Est. [facility] [place] CPT-21174 Level 3 Est. Patient [facility] 08:58:07 CDT TABLET COATER CPT-81593 Level 3 Est. Patient Faby Marino [facility] 14:40:56 CDT GIVER CPT-37019 Level 4 Est. Patient [facility] 17:29:53 CASH CONTROLLER TABLET COATER CPT-17959 Level 4 Est. Patient [facility] 09:51:54 CASH CONTROLLER CPT-69905 Level 3 Est. Patient [facility] 18:59:38 CDT CPT-84222 Level 3 Est. Patient Joseph Pineda [facility] 14:42:12 CDT -[facility] CPT-27104 Level 3 Est. Patient Joseph Pineda [facility] 22:18:20 CDT -RHC CPT-45505 Level 3 Est. Patient Joseph Pineda [facility] 16:46:04 CDT -RHC CPT-25489 Level 3 Est. Patient Joseph Pineda [facility] 15:39:53 CDT -RHC CPT-68298 Level 3 Est. Patient Maite Sanchez MD PhD [facility] 13:33:34 CDT -RHC CPT-18759 Level 3 Est. Patient Joseph Pineda [facility] 11:37:08 CDT -RHC CPT-56276 Level 3 Est. Patient Joseph Pineda [facility] 17:13:29 CASH CONTROLLER -RHC CPT-45380 Level 3 Est. Patient Joseph Trivedi [facility] 18:42:44 CDT CPT-05368 Level 3 Est. Patient Joseph Trivedi [facility] 16:25:39 CDT CPT-28135 Level 3 Est. Patient Casey Brower [facility] 09:52:45 CDT -RHC CPT-26485 Level 3 Est. Patient Joseph Trivedi [facility] 11:03:29 CASH CONTROLLER -RHC CPT-60316 Level 3 Est. Patient Joseph Pineda [facility] 11:03:08 CASH CONTROLLER -RHC CPT-79848 Level 3 Est. Patient Joseph Pineda [facility] 14:33:31 CDT -RHC CPT-43389 Level 3 Est. Patient Joseph Pineda [facility] 17:05:02 CASH CONTROLLER -RHC CPT-70991 Level 3 Est. Patient Joseph Pineda [facility] 17:48:06 CASH CONTROLLER -RHC CPT-71980 Level 3 Est. Patient Joseph Pineda [facility] 14:59:22 CASH CONTROLLER -RHC CPT-49793 Level 3 Est. Patient Joseph Pineda [facility] - 21:45:56 CASH CONTROLLER [place] [facility] CPT-12129 Level 3 Est. Patient Joseph Pineda [facility] 21:29:50 CDT -RHC CPT-11258 Level 3 Est. Patient Joseph Pineda [facility] 12:41:09 CDT -RHC Procedures Code Procedure Name Date Entry Date Standard Description CPT-85743 Wet Mount - LAB USE ONLY 12:39:03 CASH CONTROLLER CPT-37823 Vaginal Culture - LAB USE ONLY 12:39:03 CASH CONTROLLER CPT-17149 Urine Culture - LAB USE ONLY 11:52:44 CASH CONTROLLER CPT-12725 UA w micro - LAB USE ONLY 11:52:44 CASH CONTROLLER CPT-38259 Postop F/U Visit 12:08:35 CDT CPT-26479 Postop F/U Visit 18:20:10 CDT CPT-A4351 Coloplast Female Cath 09:37:10 CDT CPT-85465 Urine Dip (Floor Use Only) 15:17:13 CDT CPT-77320 Dil F ureth int 15:17:13 CDT CPT-36510 Venipuncture Draw Fee 09:19:08 CDT CPT-77228 Lipid - LAB USE ONLY 09:19:07 CDT CPT-JTINJ Asp/Joint Injection 09:26:49 CDT CPT-92719 Chest 2V Frontal and Lat 14:47:43 CDT CPT-JTINJ Asp/Joint Injection 09:51:53 CASH CONTROLLER CPT-OV Office Visit 17:39:05 CDT CPT-OV Office Visit 15:19:50 CDT CPT-92278 Sono transvag pelvis non OB uterus ovaries cervix 18:04:34 CDT CPT-85026 Venipuncture Draw Fee 08:55:49 CASH CONTROLLER
--- OUTSIDE RECORDS SUMMARY | 2016-11-20 13:42 | External Medical Summary | Clinical Summary ---
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 killed her NKDA Critical Active Inidgo Yokum FIBRE CEMENT MOULDER NKDA Critical No Longer Indigo Yokum FIBRE CEMENT MOULDER Active NKDA Critical Inactive Adrianna Elder Conditions [...] Resolved Indigo Other malaise 05/24 07/02 Yokum FIBRE CEMENT MOULDER and fatigue SLEEP APNEA, 327.23 Active Joseph Pineda Obstructive OBSTRUCTIVE, 06/27 06/27 Farooq DO sleep apnea MILD (adult) (pediatric) OVERWEIGHT 278.02 Inactive Joseph Pineda Overweight 06/28 06/28 Farooq DO Obesity 278.00 Active Indigo Obesity, 06/28 10/18 Yokum FIBRE CEMENT MOULDER unspecified OTH GENERAL V70.3 Resolved Maite Gutierrez Other general MEDICAL Laura ONEAL medical EXAMINATION PhD examination for ADMIN administrative PURPOSES purposes OTHER 790.29 Resolved Maite C Other abnormal ABNORMAL 05/20 Laura ONEAL glucose GLUCOSE PhD ACUTE 466.0 Resolved Maite Gutierrez Acute bronchitis BRONCHITIS 09/02 Laura ONEAL PhD DEPENDENT 782.3 Resolved Indigo Edema EDEMA, LEGS, 10/29 10/18 Yokum FIBRE CEMENT MOULDER BILATERAL HYPOKALEMIA, 276.8 Resolved Indigo Hypopotassemia MILD 10/29 07/02 Yokum FIBRE CEMENT MOULDER Diabetes, 250.00 Inactive Joseph Pineda Diabetes Type 2 06/27 06/27 Farooq DO mellitus without mention of complication, type II or unspecified type, not stated as uncontrolled Diabetes 250.02 Resolved Indigo Diabetes mellitus, 06/27 10/18 Yokum FIBRE CEMENT MOULDER mellitus without type II, mention of uncontrolled [...] Resolved Indigo Routine gynecological 12/14 07/02 Yokum FIBRE CEMENT MOULDER gynecological examination examination Postmenopausa 627.1 Resolved Indigo Postmenopausal l bleeding 12/14 07/02 Yokum FIBRE CEMENT MOULDER bleeding Screening for V76.51 Resolved Indigo Screening for malignant 12/26 07/02 Yokum FIBRE CEMENT MOULDER malignant neoplasms of neoplasms of colon colon Insomnia, 307.42 Active Indigo 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 CEMENT MOULDER disorder of initiating or maintaining sleep Establish V68.89 Resolved Indigo Encounters for care or get 01/16 07/02 Yokum FIBRE CEMENT MOULDER other specified acquainted administrative visit purpose Weakness, 342.90 Resolved Indigo Hemiplegia, left side of 06/20 10/18 Yokum FIBRE CEMENT MOULDER unspecified, body affecting unspecified side TIA 435.9 Active Indigo Unspecified 06/20 07/02 Yokum FIBRE CEMENT MOULDER transient cerebral ischemia Knee pain, 719.46 Active Indigo Pain in joint bilateral 06/20 10/18 Yokum FIBRE CEMENT MOULDER involving lower leg Bronchitis 490 Resolved Indigo Bronchitis, not 07/23 10/18 Yokum FIBRE CEMENT MOULDER specified as acute or chronic Diabetes 357.2 Active Maliheh Polyneuropathy mellitus, 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 MD DO [facility] 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 y Knee pain, 719.46 Active Indigo Pain in joint right 06/20 10/18 Yokum FIBRE CEMENT MOULDER involving lower leg Jesi 112.3 Active Indigo Candidiasis of intertrigo 10/09 10/18 Yokum FIBRE CEMENT MOULDER skin and nails Hyperlipidemi 272.4 Active Anne Other and a 12/24 12/24 Neil unspecified RMA hyperlipidemia Incontinence, 788.33 Active Indigo Mixed mixed, 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 FIBRE CEMENT MOULDER incontinence urge/stress (female) (male) Female stress 625.6 Active Yury Monaco Stress incontinence 01/03 01/03 Cy patel MD female Vaginal odor 623.8 Active Gloria Other specified 05/28 05/28 Naff LAMP ASSEMBLER noninflammatory disorders of vagina Urinary tract 599.0 Active Indigo Urinary tract infection 05/28 05/28 Yok FIBRE CEMENT MOULDER infection, site not specified Urine odor 791.9 Active Indigo Other 05/28 06/26 Yokum FIBRE CEMENT MOULDER nonspecific findings on examination of urine ABNORMAL VAGINAL ICD-626.9 Inactive Maite Sanchez BLEEDING PhD SCABIES ICD-133.0 Inactive Maite Sanchez PhD FATIGUE ICD-780.79 Inactive Indigo Yokum FIBRE CEMENT MOULDER OTH GENERAL ICD-V70.3 Inactive Maite Sanchez MEDICAL PhD EXAMINATION ADMIN PURPOSES OTHER ABNORMAL ICD-790.29 Inactive Maite Sanchez GLUCOSE MD PhD ACUTE BRONCHITIS ICD-466.0 Inactive Maite Sanchez PhD DEPENDENT EDEMA, ICD-782.3 Inactive Indigo Yokum LEGS, BILATERAL FIBRE CEMENT MOULDER HYPOKALEMIA, MILD ICD-276.8 Inactive Indigo Yokum FIBRE CEMENT MOULDER Diabetes mellitus, ICD-250.02 Inactive Indigo Yokum type II, FIBRE CEMENT MOULDER uncontrolled Sinusitis, ICD-461.1 Inactive Ismael Coyne frontal, acute Amandeep ONEAL Laryngitis, acute ICD-464.00 Inactive Ismael Coyne Amandeep ONEAL Routine ICD-V72.31 Inactive Indigo Yokum gynecological FIBRE CEMENT MOULDER examination Postmenopausal ICD-627.1 Inactive Indigo Yokum 2015 bleeding FIBRE CEMENT MOULDER Screening for ICD-V76.51 Inactive Indigo Yokum 2015 malignant FIBRE CEMENT MOULDER neoplasms of colon Establish care or ICD-V68.89 Inactive Indigo Yokum get acquainted FIBRE CEMENT MOULDER visit Weakness, left ICD-342.90 Inactive Indigo Yokum side of body FIBRE CEMENT MOULDER Bronchitis ICD-490 Inactive Indigo Yokum FIBRE CEMENT MOULDER Medication List Medication Instructions Start Stop Generic NDC Status Provider Patient Date Date Name Instruction REGINALDRE 5 1 tablet SOLIFENACIN 63919506439 Active J Carlos Enrique Active MG TABS daily SUCCINATE Cy ONEAL CIPRO 250 MG 1 tablet 2 CIPROFLOXACIN 30717894178 No Indigo Active TAB by mouth 0 HCL Longer Yokum twice 1 Active FIBRE CEMENT MOULDER daily 7 METFORMIN 2 tablets 2 METFORMIN HCL 46105378591 No Indigo Active HCL 500 MG by mouth 0 Longer Yokum TB24 twice 1 Active FIBRE CEMENT MOULDER daily 2 AMARYL 1 MG 1 tablet 2 GLIMEPIRIDE 72005201490 No Indigo Active ORAL TABS orally 0 Longer Yokum twice 1 Active FIBRE CEMENT MOULDER daily 2 NYSTATIN apply to NYSTATIN 95825019680 Active Indigo Active 460360 rash TID Yokum UNIT/GM CREA PRN FIBRE CEMENT MOULDER TROKENDI XR 2 tab TOPIRAMATE 31345083413 Active Maliheh Active 100 MG ORAL daily Ziglari [id number] MD DO [facility] METOPROLOL 1 tab po METOPROLOL 30321213783 Active Indigo Active TARTRATE 25 bid TARTRATE Yokum MG TABS FIBRE CEMENT MOULDER AZITHROMYCIN 2 po qd x 2 AZITHROMYCIN 66974268181 No Jillina Active 250 MG TABS 1 day, 0 Longer Frazell then 1 po 1 Active FIBRE CEMENT MOULDER qd x 4 6 days / 0 3 / 2 6 PREDNISONE 2 pills 2 PREDNISONE 94043597060 No Jillina Active 20 MG TAB daily x 4 0 Longer Frazell days 1 Active FIBRE CEMENT MOULDER 6 / 0 3 / 2 5 PIOGLITAZONE take one a PIOGLITAZONE 66849164180 Active Maliheh Active HCL 30 MG day HCL Ziglari ORAL TABS MD DO [facility] JANUVIA 100 1 tablet 2 SITAGLIPTIN 17448255605 No Indigo Active MG TABS by mouth 0 PHOSPHATE Longer Yokum daily 1 Active FIBRE CEMENT MOULDER 6 / 0 2 / 1 6 ATORVASTATIN 1 pill by ATORVASTATIN 70710900601 Active Indigo Active CALCIUM 10 mouth CALCIUM Yokum MG TABS nightly, FIBRE CEMENT MOULDER for cholestero l ASPIRIN 81 1 po qd ASPIRIN 11794155277 Active Indigo Active MG ORAL TABS Yokum FIBRE CEMENT MOULDER NITROFURANTO One 2 NITROFURANTOIN 30194770095 No Indigo Active IN MONOHYD capsule 0 MONOHYD MACRO Longer Yokum MACRO 100 MG BID for 1 Active FIBRE CEMENT MOULDER CAPS UTI 6 / 0 / 3 TRAMADOL HCL 1/2 po tid 2 TRAMADOL HCL 59422985669 No Jillina Active 50 MG TABS with ES 0 Longer [place] Tylenol 1 Active FIBRE CEMENT MOULDER prn pain 5 / 0 2 VYVANSE 20 1 tablet 2 LISDEXAMFETAMIN 09336292489 No Jillina Active MG ORAL CAPS daily for 0 E DIMESYLATE Longer [place] binge 1 Active FIBRE CEMENT MOULDER eating 5 disorder / 0 2 LASIX 20 MG 2 tablet FUROSEMIDE 30463072464 Active Indigo Active TAB by mouth Yokum daily FIBRE CEMENT MOULDER CELEBREX 200 1 tablet CELECOXIB 40241315551 Active Indigo Active MG CAPS by mouth Yokum daily with FIBRE CEMENT MOULDER meals PREDNISONE 2 tablets 2 PREDNISONE 49910323160 No Joesph W Active 20 MG TAB today, 0 Longer Farooq DO then 1 1 Active tablet 5 days 2-4 / 0 4 / 1 3 DIFLUCAN 100 1 tablet 2 FLUCONAZOLE 74730741946 No Joseph W Active MG TAB by mouth 0 Longer Farooq DO daily x 3 1 Active days 5 / 0 4 / 1 3 DIFLUCAN 100 1 tablet 2 FLUCONAZOLE 80128990215 No Joseph W Active MG TABS by mouth 0 Longer Farooq DO every 1 Active other day 5 for 2 / doses 0 1 / 2 3 ZOFRAN 4 MG 1 po q6hr ONDANSETRON HCL 84251037158 Active Joseph W Active TABS PRN Nausea Farooq DO PREDNISONE 2 tabs 2 PREDNISONE 86706937103 No Joseph W Active 20 MG TAB daily for 0 Longer Farooq DO 3 days, 1 1 Active tab daily 4 for 3 / days, 1/2 1 tab daily 0 for 2 days / 2 5 AMOXICILLIN 2 po BID x 2 AMOXICILLIN 52404216034 No Maite C Active 500 MG CAPS 10 days 0 Longer Laura ONEAL 1 Active PhD 0 / 2 0 LISINOPRIL 1 tablet 2 LISINOPRIL 71303693657 No Maite C Active 20 MG TABS by mouth 0 Longer Kimberlyl MD daily 1 Active PhD 0 / 0 POTASSIUM 2 capsule 2 POTASSIUM 23903300489 No Joseph W Active CHLORIDE CR by mouth 0 CHLORIDE Longer Farooq DO 10 MEQ CPCR daily 1 Active 4 / 0 8 / 2 9 SPIRONOLACTO 1 tablet 2 SPIRONOLACTONE 04559511894 No Joseph W Active NE 25 MG TAB by mouth 0 Longer Farooq DO daily 1 Active 4 / 0 8 2 9 METFORMIN 1 tablet 2 METFORMIN HCL 46651451437 No Joseph W Active HCL 500 MG by mouth 0 Longer Farooq DO TABS twice 1 Active daily 4 / 0 8 / 2 9 AMARYL 1 MG 1 tab 2 GLIMEPIRIDE 23483374660 No Joseph W Active TABS twice 0 Longer Farooq DO daily 1 Active 4 / 0 8 / 2 9 PHENTERMINE 1 po q am 2 PHENTERMINE HCL 88772284898 No Joseph W Active HCL 37.5 MG for wt. 0 Longer Farooq DO TABS loss 1 Active 3 / 1 2 / 2 3 PROMETHAZINE 1 tab by 2 PROMETHAZINE 37774403720 No Joseph W Active HCL 25 MG mouth 0 HCL Longer Farooq DO TABS every 6 1 Active hours as 3 needed / 0 9 / 0 9 CIPROFLOXACI Take one 2 CIPROFLOXACIN 35220916596 No Joseph W Active N HCL 500 MG (1) tablet 0 HCL Longer Farooq DO TABS by mouth 1 Active twice a 3 day / 0 9 / 0 9 ABILIFY 5 MG one p.o. 2 ARIPIPRAZOLE 80924805882 No Joseph W Active TABS q. day 0 Longer Farooq DO 1 Active 3 / 0 9 / 0 9 HYDROCHLOROT 2 tabs 2 HYDROCHLOROTHIA 46311367684 No Joseph W Active HIAZIDE 25 every 0 ZIDE Longer Farooq DO MG TABS morning 1 Active 3 / 0 6 / 2 7 ABILIFY 2 MG 1 po q hs 2 ARIPIPRAZOLE 37719915296 No Joseph W Active TABS for major 0 Longer [facility] depression 1 Active 3 / 0 5 / 0 7 ADIPEX-P 1/2 tab po 2 PHENTERMINE HCL 43215914394 No Casey Active 37.5 MG CAPS q am for 0 Longer [facility] weight 1 Active loss 3 / 0 5 / 0 1 CIPRO 500 MG 1 tablet 2 CIPROFLOXACIN 34891034112 No Casey Active TAB by mouth 0 HCL Longer [facility] twice 1 Active daily 3 / 0 5 / 0 1 NECON 1 po daily 2 NORETHINDRONE-E 92672508680 No Casey Active () - 0 ESTRADIOL Longer [facility] MG-MCG TABS 1 Active 3 / 0 5 / 0 1 TRAMADOL HCL 1 po tid 2 TRAMADOL HCL 58264128703 No Casey Active 50 MG TABS with ES 0 Longer [facility] Tylenol 1 Active 3 / 0 5 / 0 1 FLUCONAZOLE one p.o. 2 FLUCONAZOLE 26366646061 No Casey Active 100 MG TABS q. day 2 0 Longer [facility] days 1 Active 3 / 0 5 / 0 1 POTASSIUM 1 capsule 2 POTASSIUM 68917728524 No Casey Active CHLORIDE CR by mouth 0 CHLORIDE Longer [facility] 10 MEQ CPCR daily 1 Active 3 / 0 5 / 0 1 IMIPRAMINE Take 6 IMIPRAMINE HCL 15451894773 Active Indigo Active HCL 50 MG tablets by Yokum TABS mouth at FIBRE CEMENT MOULDER bedtime DIFLUCAN 100 1 tablet 2 FLUCONAZOLE 60054933462 No Joseph W Active MG TAB by mouth 0 Longer [facility] daily 1 Active 2 / 0 2 / 2 4 VERAPAMIL 2 po bid VERAPAMIL HCL 39089201395 Active Indigo Active HCL CR 120 Yokum MG TAB CR FIBRE CEMENT MOULDER PERMETHRIN 5 apply neck 2 PERMETHRIN 93084357841 No Joseph W Active % CREA to toes 0 Longer [facility] tonight 1 Active and then 2 rinse off / in 0 morning. 1 repeat at / 7 days 2 0 SEROQUEL XR one p.o. 2 QUETIAPINE 97508586071 No Joseph W Active 50 MG q. evening 0 FUMARATE Longer Farooq DO [id number] 1 Active 2 / 0 1 / 2 0 TRAMADOL HCL 1-2 2 TRAMADOL HCL 72992077084 No Joseph W Active 50 MG TABS tablets 0 Longer Farooq DO every 6-8 1 Active hours as 2 needed for / pain 0 1 / 2 0 ALPRAZOLAM 3 one p.o. ALPRAZOLAM 08498958095 Active Indigo Active MG [id number] q.h.s. Yokum FIBRE CEMENT MOULDER ALPRAZOLAM Take 1 2 ALPRAZOLAM 55951522060 No Joseph W Active XR [id number] tablet by 0 [id number] Longer Farooq DO mouth at 1 Active bedtime 1 / 2 9 DIFLUCAN 100 1 tablet 2 FLUCONAZOLE 73008865654 No Joseph W Active MG TAB by mouth 0 Longer Farooq DO daily 1 Active 0 / 0 6 AMBIEN 10 MG 1 tab by ZOLPIDEM 93484854010 Active Indigo Active TAB mouth at TARTRATE Yokum bedtime as FIBRE CEMENT MOULDER needed for sleep DIFLUCAN 100 1 tablet DIFLUCAN 552960 FLUCONAZOLE Inactive MG TAB by mouth 100 MG TAB daily ALPRAZOLAM Take 1 ALPRAZOLAM ALPRAZOLAM Inactive XR [id number] tablet by XR [id number] mouth at [id number] bedtime TRAMADOL HCL 1-2 TRAMADOL 950619 TRAMADOL HCL Inactive 50 MG TABS tablets HCL 50 MG every 6-8 TABS hours as needed for pain SEROQUEL XR one p.o. SEROQUEL XR QUETIAPINE Inactive 50 MG q. 50 MG FUMARATE [id number] evening [id number] PERMETHRIN 5 apply PERMETHRIN 181008 PERMETHRIN Inactive % CREA neck to 5 % CREA toes tonight and then rinse off in morning. repeat at 7 days DIFLUCAN 100 1 tablet DIFLUCAN 566441 FLUCONAZOLE Inactive MG TAB by mouth 100 MG TAB daily POTASSIUM 1 capsule POTASSIUM POTASSIUM Inactive CHLORIDE CR by mouth CHLORIDE CR CHLORIDE 10 MEQ CPCR daily 10 MEQ CPCR FLUCONAZOLE one p.o. FLUCONAZOLE 19760111 FLUCONAZOLE Inactive 100 MG TABS q. day 2 100 MG TABS days TRAMADOL HCL 1 po tid TRAMADOL 667878 TRAMADOL HCL Inactive 50 MG TABS with ES HCL 50 MG Tylenol TABS NECON 35 1 po NECON NORETHINDRONE- Inactive () 1-35 daily () 1-35 ETH ESTRADIOL MG-MCG TABS MG-MCG TABS CIPRO 500 MG 1 tablet CIPRO 500 339841 CIPROFLOXACIN Inactive TAB by mouth MG TAB HCL twice daily ADIPEX-P 1/2 tab ADIPEX-P 910332 PHENTERMINE Inactive 37.5 MG CAPS po q am 37.5 MG HCL for CAPS weight loss ABILIFY 2 MG 1 po q hs ABILIFY 2 383062 ARIPIPRAZOLE Inactive TABS for major MG TABS depressio n HYDROCHLOROT 2 tabs HYDROCHLORO 220812 HYDROCHLOROTHI Inactive HIAZIDE 25 every THIAZIDE 25 AZIDE MG TABS morning MG TABS ABILIFY 5 MG one p.o. ABILIFY 5 014573 ARIPIPRAZOLE Inactive TABS q. day MG TABS CIPROFLOXACI Take one CIPROFLOXAC 475678 CIPROFLOXACIN Inactive N HCL 500 MG (1) IN HCL 500 HCL TABS tablet by MG TABS mouth twice a day PROMETHAZINE 1 tab by PROMETHAZIN 904527 PROMETHAZINE Inactive HCL 25 MG mouth E HCL 25 MG HCL TABS every 6 TABS hours as needed PHENTERMINE 1 po q am PHENTERMINE 836009 PHENTERMINE Inactive HCL 37.5 MG for wt. HCL 37.5 MG HCL TABS loss TABS AMARYL 1 MG 1 tab AMARYL 1 MG 19910808 GLIMEPIRIDE Inactive TABS twice TABS daily METFORMIN 1 tablet METFORMIN 714153 METFORMIN HCL Inactive HCL 500 MG by mouth HCL 500 MG TABS twice TABS daily SPIRONOLACTO 1 tablet SPIRONOLACT 871242 SPIRONOLACTONE Inactive NE 25 MG TAB by mouth ONE 25 MG daily TAB POTASSIUM 2 capsule POTASSIUM POTASSIUM Inactive CHLORIDE CR by mouth CHLORIDE CR CHLORIDE 10 MEQ CPCR daily 10 MEQ CPCR LISINOPRIL 1 tablet LISINOPRIL 770941 LISINOPRIL Inactive 20 MG TABS by mouth 20 MG TABS daily DIFLUCAN 100 1 tablet DIFLUCAN 152096 FLUCONAZOLE Inactive MG TABS by mouth 100 MG TABS every other day for 2 doses DIFLUCAN 100 1 tablet DIFLUCAN 719163 FLUCONAZOLE Inactive MG TAB by mouth 100 MG TAB daily x 3 days PREDNISONE 2 tablets PREDNISONE 314705 PREDNISONE Inactive 20 MG TAB today, 20 MG TAB then 1 tablet days 2-4 VYVANSE 20 1 tablet VYVANSE 20 LISDEXAMFETAMI Inactive MG ORAL CAPS daily for MG ORAL NE DIMESYLATE binge CAPS eating disorder TRAMADOL HCL 1/2 po TRAMADOL 453404 TRAMADOL HCL Inactive 50 MG TABS tid [...] TB24 daily AMOXICILLIN 2 po BID AMOXICILLIN 818494 AMOXICILLIN Inactive 500 MG CAPS x 10 days 500 MG CAPS PREDNISONE 2 tabs PREDNISONE 307030 PREDNISONE Inactive 20 MG TAB daily for 20 MG TAB 3 days, 1 tab daily for 3 days, 1/2 tab daily for 2 days NITROFURANTO One NITROFURANT 3804820 NITROFURANTOIN Inactive IN MONOHYD capsule OIN MONOHYD MONOHYD MACRO MACRO 100 MG BID for MACRO 100 CAPS UTI MG CAPS PREDNISONE 2 pills PREDNISONE 992550 PREDNISONE Inactive 20 MG TAB daily x 4 20 MG TAB days AZITHROMYCIN 2 po qd x AZITHROMYCI 8806780 AZITHROMYCIN Inactive 250 MG TABS 1 day, N 250 MG then 1 po TABS qd x 4 days CIPRO 250 MG 1 tablet CIPRO 250 890110 CIPROFLOXACIN Inactive TAB by mouth MG TAB [...] HGBA1C - Chemistry sodium, serum 140 mmol/L 181-179 0409/06/03 potassium, serum 3.9 mmol/L 3.5-5.2 chloride, serum 105 mmol/L 98-107 carbon dioxide, venous blood 29.4 mmol/L 21.0-32.0 blood glucose 124 mg/dL 65-110 calcium, serum 8.9 mg/dL 8.5-10.1 urea nitrogen, blood 14 mg/dL 7-18 creatinine, serum 0.88 mg/dL 0.55-1.30 hemoglobin A1C, blood, as % of total hemoglobin 5.7 % 4.3-6.0 Lab Report: Chlamydia/GC APTIMA/[id number] - Lab chlamydia DNA probe NOT DETECTED NOT DETECTED Lab Report: Chlamydia/GC APTIMA/43016 - Microbiology Neisseria gonorrhoeae DNA probe NOT DETECTED NOT DETECTED Lab Report: Lipid Panel - Chemistry cholesterol, serum 157 mg/dL 575-582 6664/08/22 triglyceride, serum, fasting 215 mg/dL 30-200 HDL [...] mg/dL Encounters Code Encounter Date Provider Facility CPT-51525 Level 4 Est. Patient [facility] - 17:02:40 GREASE MAKER [place] CPT-32715 Level 4 New Patient Yury Benoit MD [facility] 15:17:12 CDT CPT-52662 Level 3 Est. Patient [facility] - 13:37:46 CDT [place] CPT-87718 Level 4 Est. Patient [facility] - 10:01:06 CDT [place] CPT-57551 Level 3 Est. Patient [facility] 08:58:07 CDT MD DO [facility] CPT-57477 Level 3 Est. Patient Faby Marino [facility] 14:40:56 CDT [place] CPT-52616 Level 4 Est. Patient [facility] 17:29:53 GREASE MAKER MD DO [facility] CPT-20367 Level 4 Est. Patient [facility] 09:51:54 GREASE MAKER CPT-00135 Level 3 Est. Patient [facility] 18:59:38 CDT CPT-16697 Level 3 Est. Patient Joseph Pineda [facility] 14:42:12 CDT -RHC CPT-33182 Level 3 Est. Patient Joseph Pineda [facility] 22:18:20 CDT -RHC CPT-91422 Level 3 Est. Patient Joseph Pineda [facility] 16:46:04 CDT -RHC CPT-39257 Level 3 Est. Patient Joseph Edwin [facility] 15:39:53 CDT -RHC CPT-39084 Level 3 Est. Patient Maite Sanchez MD [facility] 13:33:34 CDT -RHC CPT-99355 Level 3 Est. Patient Joseph Pineda [facility] 11:37:08 CDT -RHC CPT-72636 Level 3 Est. Patient Joseph Edwin [facility] 17:13:29 GREASE MAKER -RHC CPT-79664 Level 3 Est. Patient Joseph Pineda [facility] 18:42:44 CDT CPT-62228 Level 3 Est. Patient Joseph Edwin [facility] 16:25:39 CDT CPT-70500 Level 3 Est. Patient Casey Brower [facility] 09:52:45 CDT -RHC CPT-05121 Level 3 Est. Patient Joseph Pindea [facility] 11:03:29 GREASE MAKER -RHC CPT-82209 Level 3 Est. Patient Joseph Pineda [facility] 11:03:08 GREASE MAKER -RHC CPT-80229 Level 3 Est. Patient Joseph Edwin [facility] 14:33:31 CDT -RHC CPT-82697 Level 3 Est. Patient Joseph Pineda [facility] 17:05:02 GREASE MAKER -RHC CPT-18290 Level 3 Est. Patient Joseph Edwin [facility] 17:48:06 GREASE MAKER -RHC CPT-11042 Level 3 Est. Patient Joseph Trivedi [facility] 14:59:22 GREASE MAKER -RHC CPT-62709 Level 3 Est. Patient Joseph Trivedi [facility] - 21:45:56 GREASE MAKER [place] [facility] CPT-14124 Level 3 Est. Patient Joseph Trivedi [facility] 21:29:50 CDT -[facility] CPT-21337 Level 3 Est. Patient Joseph Pineda [facility] 12:41:09 CDT -RHC Procedures Code Procedure Name Date Entry Date Standard Description CPT-27852 Wet Mount - LAB USE ONLY 12:39:03 GREASE MAKER CPT-15975 Vaginal Culture - LAB USE ONLY 12:39:03 GREASE MAKER CPT-86855 Urine Culture - LAB USE ONLY 11:52:44 GREASE [employer]KER CPT-06097 UA w micro - LAB USE ONLY 11:52:44 GREASE MAKER CPT-47378 Postop F/U Visit 12:08:35 CDT CPT-75031 Postop F/U Visit 18:20:10 CDT CPT-A4351 [facility] Female Cath 09:37:10 CDT CPT-51446 Urine Dip (Floor Use Only) 15:17:13 CDT CPT-09716 Dil F ureth int 15:17:13 CDT CPT-62374 Venipuncture Draw Fee 09:19:08 CDT CPT-22514 Lipid - LAB USE ONLY 09:19:07 CDT CPT-JTINJ Asp/Joint Injection 09:26:49 CDT CPT-95606 Chest 2V Frontal and Lat 14:47:43 CDT CPT-JTINJ Asp/Joint Injection 09:51:53 GREASE MAKER CPT-OV Office Visit 17:39:05 CDT CPT-OV Office Visit 15:19:50 CDT CPT-49340 Sono transvag pelvis non OB uterus ovaries cervix 18:04:34 CDT CPT-99288 Venipuncture Draw Fee 08:55:49 GREASE MAKER
--- OUTSIDE RECORDS SUMMARY | 2016-11-20 13:42 | External Medical Summary | Clinical Summary ---
:1965 Author Organization [facility] Address [address] [place] [address] Phone Allergies, Adverse Reactions, Alerts Allergy Name Reaction Description Start Date Severity Status Provider No Known Allergies Suad Barraza LPN NKDA Critical Active Ismael Bernstein MD Conditions or Problems Problem Name Problem Onset [...] Farooq DO essential hypertension FATIGUE 780.79 Active Jsoeph Pineda Other malaise 05/24 05/24 Farooq DO [...] Ismael Coyne Acute frontal frontal, acute 12/26 VanUmair sinusitis Laryngitis, 464.00 Resolved Ismael Coyne Acute acute 12/26 Duran[place]ou[place] laryngitis without mention of obstruction Binge eating 307.51 Active Joseph Pineda Bulimia nervosa disorder 08/15 08/15 Farooq DO Routine V72.31 Active Jillina Routine gynecological 12/14 12/14 [place] gynecological examination [employer] examination Postmenopausal 627.1 Active Jillina Postmenopausal bleeding 12/14 12/14 [place] bleeding [employer] Screening for V76.51 Active Ismael Coyne Screening for malignant 12/26 12/26 Amandeep malignant neoplasms of MD neoplasms of colon colon ABNORMAL VAGINAL ICD-626.9 Inactive Maite Sanchez BLEEDING PhD SCABIES ICD-133.0 Inactive Maite Sanchez PhD OTH GENERAL ICD-V70.3 Inactive Maite Sanchez MEDICAL PhD EXAMINATION ADMIN PURPOSES OTHER ABNORMAL ICD-790.29 Inactive Maite Sanchez GLUCOSE PhD ACUTE BRONCHITIS ICD-466.0 Inactive Maite Sanchez PhD Sinusitis, ICD-461.1 Inactive Ismael Coyne frontal, acute [place] Laryngitis, ICD-464.00 Inactive Ismael Coyne acute Amandeep ONEAL Medication List Medication Instructions Start Stop Generic NDC Status Provider Patient Date Date Name Instruction TRAMADOL 1/2 po TRAMADOL [id number] No Jillina Active HCL 50 MG tid with HCL Longer [place] TABS ES Active [employer] Tylenol prn pain VYVANSE 20 1 tablet LISDEXAMF 45090593563 No Jillina Active MG ORAL daily for ETAMINE Longer [place] CAPS binge DIMESYLAT Active [employer] eating E disorder METFORMIN 2 tablet METFORMIN 91985994855 Active Joseph Pineda Active HCL 500 MG daily for HCL Farooq DO TB24 blood sugars LASIX 20 2 tablet FUROSEMID 74098353013 Active Joseph Pineda Active MG TAB by mouth E Farooq DO daily CELEBREX 1 tablet CELECOXIB 14894626391 Active Joseph Pineda Active 200 MG by mouth Farooq DO CAPS daily with meals PREDNISONE 2 tablets PREDNISON 51423206162 No Joseph Pineda Active 20 MG TAB today, E Longer Farooq DO then 1 Active tablet days 2-4 DIFLUCAN 1 tablet FLUCONAZO 80185908229 No Joseph Pineda Active 100 MG TAB by mouth LE Longer Farooq DO daily x 3 Active days AMARYL 1 1 tablet GLIMEPIRI 18465897595 Active Joseph Pineda Active MG ORAL orally DE Farooq DO TABS twice daily DIFLUCAN 1 tablet FLUCONAZO 98162219743 No Joseph Pineda Active 100 MG by mouth LE Longer Farooq DO TABS every Active other day for 2 doses ZOFRAN 4 1 po q6hr ONDANSETR 47666684349 Active Bam Pineda Active MG TABS PRN ON HCL [place] Nausea PREDNISONE 2 tabs PREDNISON 74236082516 No Joseph W Active 20 MG TAB daily for E Longer Farooq DO 3 days, 1 Active tab daily for 3 days, 1/2 tab daily for 2 days AMOXICILLI 2 po BID AMOXICILL 36079670361 No Maite C Active N 500 MG x 10 days IN Longer Madril CAPS Active PhD LISINOPRIL 1 tablet LISINOPRI 52381564946 No Maite C Active 20 MG TABS by mouth L Longer Madril daily Active PhD POTASSIUM 2 capsule POTASSIUM 96968582487 No Joseph W Active CHLORIDE by mouth CHLORIDE Longer Farooq DO CR 10 MEQ daily Active CPCR SPIRONOLAC 1 tablet SPIRONOLA 96763703333 No Joseph W Active TONE 25 MG by mouth CTONE Longer Farooq DO TAB daily Active METFORMIN 1 tablet METFORMIN 44606967805 No Joseph W Active HCL 500 MG by mouth HCL Longer Farooq DO TABS twice Active daily AMARYL 1 1 tab GLIMEPIRI 67379421489 No Joseph W Active MG TABS twice DE Longer Farooq DO daily Active PHENTERMIN 1 po q am PHENTERMI 56066183523 No Joseph W Active E HCL 37.5 for wt. NE HCL Longer Farooq DO MG TABS loss Active PROMETHAZI 1 tab by PROMETHAZ 93324530556 No Joseph W Active NE HCL 25 mouth INE HCL Longer Farooq DO MG TABS every 6 Active hours as needed CIPROFLOXA Take one CIPROFLOX 30888714018 No Joseph W Active DELORES HCL (1) ACIN HCL Longer Farooq DO 500 MG tablet by Active TABS mouth twice a day ABILIFY 5 one p.o. ARIPIPRAZ 80399087215 No Joseph W Active MG TABS q. day OLE Longer Farooq DO Active HYDROCHLOR 2 tabs HYDROCHLO 44086785983 No Joseph W Active OTHIAZIDE every ROTHIAZID Longer Farooq DO 25 MG TABS morning E Active ABILIFY 2 1 po q hs ARIPIPRAZ 87220513797 No Joseph W Active MG TABS for major OLE Longer Farooq DO depressio Active n ADIPEX-P 1/2 tab PHENTERMI 19847912757 No Casey Active 37.5 MG po q am NE HCL Longer Leonarda CAPS for Active PA weight loss CIPRO 500 1 tablet CIPROFLOX 29706920225 No Casey Active MG TAB by mouth ACIN HCL Longer [place] twice Active PA daily NECON 35 1 po NORETHIND 01697913952 No Casey Active (28) 1-35 daily LINDA-ETH Longer Leonarda MG-MCG ESTRADIOL Active PA TABS TRAMADOL 1 po tid TRAMADOL 56734676124 No Casey Active HCL 50 MG with ES HCL Longer [place] TABS Tylenol Active PA FLUCONAZOL one p.o. FLUCONAZO 38237568314 No Casey Active E 100 MG q. day 2 LE Longer [place] TABS days Active PA POTASSIUM 1 capsule POTASSIUM 51198222538 No Casey Active CHLORIDE by mouth CHLORIDE Longer Leonarda CR 10 MEQ daily Active PA CPCR IMIPRAMINE Take 6 IMIPRAMIN 87174738282 Active Joseph W Active HCL 50 MG tablets E HCL Farooq DO TABS by mouth at bedtime DIFLUCAN 1 tablet FLUCONAZO 46471576696 No Joseph W Active 100 MG TAB by mouth LE Longer Farooq DO daily Active METOPROLOL 1/2 tab METOPROLO 34129903932 Active Joseph W Active TARTRATE po bid L Farooq DO 25 MG TABS TARTRATE VERAPAMIL 2 po bid VERAPAMIL 66814233717 Active Joseph W Active HCL CR 120 HCL Farooq DO MG TAB CR PERMETHRIN apply PERMETHRI 88259671451 No Joseph W Active 5 % CREA neck to N Longer Farooq DO toes Active tonight and then rinse off in morning. repeat at 7 days SEROQUEL one p.o. QUETIAPIN 60125323784 No Joseph W Active XR 50 MG q. E Longer Farooq DO [id number] evening FUMARATE Active TRAMADOL 1-2 TRAMADOL 72452410980 No Joseph W Active HCL 50 MG tablets HCL Longer Farooq DO TABS every 6-8 Active hours as needed for pain ALPRAZOLAM one p.o. ALPRAZOLA 82653100935 Active Joseph W Active 3 MG q.h.s. M Farooq DO [id number] ALPRAZOLAM Take 1 ALPRAZOLA 60253802003 No Joseph W Active XR tablet by M Longer Farooq DO [id number] mouth at [id number] Active bedtime DIFLUCAN 1 tablet FLUCONAZO 19915990099 No Joseph W Active 100 MG TAB by mouth LE Longer Farooq DO daily Active AMBIEN 10 1 tab by ZOLPIDEM 59654279864 Active Joseph W Active MG TAB mouth at TARTRATE Farooq DO bedtime as needed for sleep DIFLUCAN 100 1 tablet DIFLUCAN 175389 FLUCONAZOLE Inactive MG TAB by mouth 100 MG TAB daily ALPRAZOLAM Take 1 ALPRAZOLAM ALPRAZOLAM Inactive XR [id number] tablet by XR [id number] mouth at [id number] bedtime TRAMADOL HCL 1-2 TRAMADOL 513701 TRAMADOL HCL Inactive 50 MG TABS tablets HCL 50 MG every 6-8 TABS hours as needed for pain SEROQUEL XR one p.o. SEROQUEL XR QUETIAPINE Inactive 50 MG q. evening 50 MG FUMARATE [id number] PERMETHRIN 5 apply neck PERMETHRIN 301903 PERMETHRIN Inactive % CREA to toes 5 % CREA tonight and then rinse off in morning. repeat at 7 days DIFLUCAN 100 1 tablet DIFLUCAN 940098 FLUCONAZOLE Inactive MG TAB by mouth 100 MG TAB daily POTASSIUM 1 capsule POTASSIUM POTASSIUM Inactive CHLORIDE CR by mouth CHLORIDE CR CHLORIDE 10 MEQ CPCR daily 10 MEQ CPCR FLUCONAZOLE one p.o. FLUCONAZOLE 637408 FLUCONAZOLE Inactive 100 MG TABS q. day 2 100 MG TABS days TRAMADOL HCL 1 po tid TRAMADOL 541392 TRAMADOL HCL Inactive 50 MG TABS with ES HCL 50 MG Tylenol TABS NECON 35 1 po daily NECON NORETHINDRONE- Inactive (28) 1-35 (28) 1-35 ETH ESTRADIOL MG-MCG TABS MG-MCG TABS CIPRO 500 MG 1 tablet CIPRO 500 756460 CIPROFLOXACIN Inactive TAB by mouth MG TAB HCL twice daily ADIPEX-P 1/2 tab po ADIPEX-P 341921 PHENTERMINE Inactive 37.5 MG CAPS q am for 37.5 MG HCL weight CAPS loss ABILIFY 2 MG 1 po q hs ABILIFY 2 645642 ARIPIPRAZOLE Inactive TABS for major MG TABS depression HYDROCHLOROT 2 tabs HYDROCHLORO 912761 HYDROCHLOROTHI Inactive HIAZIDE 25 every THIAZIDE 25 AZIDE MG TABS morning MG TABS ABILIFY 5 MG one p.o. ABILIFY 5 314909 ARIPIPRAZOLE Inactive TABS q. day MG TABS CIPROFLOXACI Take one CIPROFLOXAC 269466 CIPROFLOXACIN Inactive N HCL 500 MG (1) tablet IN HCL 500 HCL TABS by mouth MG TABS twice a day PROMETHAZINE 1 tab by PROMETHAZIN 281785 PROMETHAZINE Inactive HCL 25 MG mouth E HCL 25 MG HCL TABS every 6 TABS hours as needed PHENTERMINE 1 po q am PHENTERMINE 107485 PHENTERMINE Inactive HCL 37.5 MG for wt. HCL 37.5 MG HCL TABS loss TABS AMARYL 1 MG 1 tab AMARYL 1 MG 731944 GLIMEPIRIDE Inactive TABS twice TABS daily METFORMIN 1 tablet METFORMIN 620551 METFORMIN HCL Inactive HCL 500 MG by mouth HCL 500 MG TABS twice TABS daily SPIRONOLACTO 1 tablet SPIRONOLACT 292498 SPIRONOLACTONE Inactive NE 25 MG TAB by mouth ONE 25 MG daily TAB POTASSIUM 2 capsule POTASSIUM POTASSIUM Inactive CHLORIDE CR by mouth CHLORIDE CR CHLORIDE 10 MEQ CPCR daily 10 MEQ CPCR LISINOPRIL 1 tablet LISINOPRIL 894564 LISINOPRIL Inactive 20 MG TABS by mouth 20 MG TABS daily DIFLUCAN 100 1 tablet DIFLUCAN 149520 FLUCONAZOLE Inactive MG TABS by mouth 100 MG TABS every other day for 2 doses DIFLUCAN 100 1 tablet DIFLUCAN 737320 FLUCONAZOLE Inactive MG TAB by mouth 100 MG TAB daily x 3 days PREDNISONE 2 tablets PREDNISONE 184125 PREDNISONE Inactive 20 MG TAB today, 20 MG TAB then 1 tablet days 2-4 VYVANSE 20 1 tablet VYVANSE 20 LISDEXAMFETAMI Inactive MG ORAL CAPS daily for MG ORAL NE DIMESYLATE binge CAPS eating disorder TRAMADOL HCL 1/2 po tid TRAMADOL 571178 TRAMADOL HCL Inactive 50 MG TABS with ES HCL 50 MG Tylenol TABS prn pain AMOXICILLIN 2 po BID x AMOXICILLIN 995611 AMOXICILLIN Inactive 500 MG CAPS 10 days 500 MG CAPS PREDNISONE 2 tabs PREDNISONE 977514 PREDNISONE Inactive 20 MG TAB daily for 20 MG TAB 3 days, 1 tab daily for 3 days, 1/2 tab daily for 2 days Vital Signs Date Name Value Unit Range Description blood pressure, diastolic - 8462-4 82 mm[Hg] [...] Panel - Chemistry sodium, serum 137 mmol/L 129-796 8832/08/29 potassium, serum 4.1 mmol/L 3.5-5.2 chloride, serum 100 mmol/L 98-107 carbon dioxide, venous blood 31.1 mmol/L 21.0-32.0 blood glucose 138 mg/dL 65-110 calcium, serum 9.2 mg/dL 8.5-10.1 urea nitrogen, blood 9 mg/dL 7-18 creatinine, serum 0.80 mg/dL 0.60-1.30 Lab Report: CBC, Comp. Metabolic Panel, HGBA1C - Chemistry sodium, serum 140 mmol/L 130-386 1837/04/13 potassium, serum 3.9 mmol/L 3.5-5.2 chloride, serum [...] 219 10^3/MM^3 10*3/mm3 142-424 Lab Report: Chlamydia/GC APTIMA/[id number] - Lab chlamydia DNA probe NOT DETECTED NOT DETECTED Lab Report: Chlamydia/GC APTIMA/[id number] - Microbiology Neisseria gonorrhoeae DNA probe NOT [...] mg/g mg/g{creat} 0-29 sodium, serum 140 mmol/L 939-314 0959/07/21 potassium, serum 3.9 mmol/L 3.5-5.2 chloride, serum [...] 142-424 Encounters Code Encounter Date Provider Facility CPT-09666 Level 3 Est. Patient [facility] 14:42:12 CDT -[facility] CPT-63202 Level 3 Est. Patient [facility] 22:18:20 CDT -[facility] CPT-11171 Level 3 Est. Patient [facility] 16:46:04 CDT -[facility] CPT-67692 Level 3 Est. Patient [facility] 15:39:53 CDT -[facility] CPT-04163 Level 3 Est. Patient Maite Sanchez MD PhD [facility] 13:33:34 CDT -[facility] CPT-45850 Level 3 Est. Patient [facility] 11:37:08 CDT -[facility] CPT-03371 Level 3 Est. Patient [facility] 17:13:29 [employer] -[facility] CPT-34907 Level 3 Est. Patient [facility] 18:42:44 CDT CPT-76181 Level 3 Est. Patient [facility] 16:25:39 CDT CPT-58135 Level 3 Est. Patient Casey ARCHIBALD [facility] 09:52:45 CDT -[facility] CPT-50988 Level 3 Est. Patient [facility] 11:03:29 [facility] [facility] -[facility] CPT-57701 Level 3 Est. Patient [facility] 11:03:08 [employer] -[facility] CPT-64023 Level 3 Est. Patient [facility] 14:33:31 CDT -[facility] CPT-49339 Level 3 Est. Patient [facility] 17:05:02 [facility] -[facility] CPT-27285 Level 3 Est. Patient [facility] 17:48:06 [employer] -[facility] CPT-90577 Level 3 Est. Patient [facility] 14:59:22 [employer] -[facility] CPT-26625 Level 3 Est. Patient [facility] - 21:45:56 [employer] [place] [facility] CPT-03697 Level 3 Est. Patient [facility] 21:29:50 CDT -[facility] CPT-59286 Level 3 Est. Patient [facility] 12:41:09 CDT -R[facility] Procedures Code Procedure Name Date Entry Date Standard Description CPT-OV Office Visit 17:39:05 CDT CPT-OV Office Visit 15:19:50 CDT CPT-88224 Sono transvag pelvis non OB uterus ovaries cervix 18:04:34 CDT CPT-99115 Venipuncture Draw Fee 08:55:49 [employer]
--- OUTSIDE RECORDS SUMMARY | 2016-11-20 13:43 | External Medical Summary | Clinical Summary ---
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 ABNORMAL VAGINAL ICD-626.9 Inactive Maite Sanchez BLEEDING PhD SCABIES ICD-133.0 Inactive Maite Sanchez PhD OT GENERAL ICD-V70.3 Inactive Maite Sanchez MEDICAL PhD EXAMINATION ADMIN PURPOSES OTHER ABNORMAL ICD-790.29 Inactive Maite Sanchez GLUCOSE PhD ACUTE BRONCHITIS ICD-466.0 Inactive Maite Sanchez PhD Medication List Medication Instructions Start Stop Generic NDC Status Provider Patient Date Date Name Instruction TRAMADOL / po TRAMADOL [id number] No Jillina Active HCL 50 MG tid with HCL Longer [place] TABS ES Active 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 Tylenol prn pain VYVANSE 20 1 tablet LISDEXAMF 43324670171 No Jillina Active MG ORAL daily for ETAMINE Longer [place] CAPS binge DIMESYLAT Active 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 eating E disorder METFORMIN 2 tablet METFORMIN 75228483822 Active Joseph W Active HCL 500 MG daily for HCL Farooq DO TB24 blood sugars LASIX 20 2 tablet FUROSEMID 99123011678 Active Joseph Pineda Active MG TAB by mouth E Farooq DO daily CELEBREX 1 tablet CELECOXIB 78477820943 Active Joseph W Active 200 MG by mouth Farooq DO CAPS daily with meals PREDNISONE 2 tablets PREDNISON 01581960004 No Joseph W Active 20 MG TAB today, E Longer Farooq DO then 1 Active tablet days 2-4 DIFLUCAN 1 tablet FLUCONAZO 46455425177 No Joseph W Active 100 MG TAB by mouth LE Longer Farooq DO daily x 3 Active days AMARYL 1 1 tablet GLIMEPIRI 93040723723 Active Joseph Pineda Active MG ORAL orally DE Farooq DO TABS twice daily DIFLUCAN 1 tablet FLUCONAZO 28294475486 No Joseph Pineda Active 100 MG by mouth LE Longer Farooq DO TABS every Active other day for 2 doses ZOFRAN 4 1 po q6hr ONDANSETR 49215172874 Active Bam Pineda Active MG TABS PRN ON HCL Dillow Nausea PREDNISONE 2 tabs PREDNISON 46305653892 No Joseph Pineda Active 20 MG TAB daily for E Longer Farooq DO 3 days, 1 Active tab daily for 3 days, 1/2 tab daily for 2 days AMOXICILLI 2 po BID AMOXICILL 90484982316 No Maite C Active N 500 MG x 10 days IN Longer Madril CAPS Active PhD LISINOPRIL 1 tablet LISINOPRI 62722395107 No Maite C Active 20 MG TABS by mouth L Longer Madril daily Active PhD POTASSIUM 2 capsule POTASSIUM 07276742037 No Joseph Pineda Active CHLORIDE by mouth CHLORIDE Longer Farooq DO CR 10 MEQ daily Active CPCR SPIRONOLAC 1 tablet SPIRONOLA 14901148960 No Joseph W Active TONE 25 MG by mouth CTONE Longer Farooq DO TAB daily Active METFORMIN 1 tablet METFORMIN 75728479414 No Joseph W Active HCL 500 MG by mouth HCL Longer Farooq DO TABS twice Active daily AMARYL 1 1 tab GLIMEPIRI 00091485154 No Joseph W Active MG TABS twice DE Longer Farooq DO daily Active PHENTERMIN 1 po q am PHENTERMI 54626447360 No Joseph W Active E HCL 37.5 for wt. NE HCL Longer Farooq DO MG TABS loss Active PROMETHAZI 1 tab by PROMETHAZ 64110889211 No Joseph W Active NE HCL 25 mouth INE HCL Longer Farooq DO MG TABS every 6 Active hours as needed CIPROFLOXA Take one CIPROFLOX 06733228836 No Joseph W Active DELORES HCL (1) ACIN HCL Longer Farooq DO 500 MG tablet by Active TABS mouth twice a day ABILIFY 5 one p.o. ARIPIPRAZ 11725335933 No Joseph W Active MG TABS q. day OLE Longer Farooq DO Active HYDROCHLOR 2 tabs HYDROCHLO 84456513959 No Joseph W Active OTHIAZIDE every ROTHIAZID Longer Farooq DO 25 MG TABS morning E Active ABILIFY 2 1 po q hs ARIPIPRAZ 74023968499 No Joseph W Active MG TABS for major OLE Longer Farooq DO depressio Active n ADIPEX-P 1/2 tab PHENTERMI 61765048821 No Casey Active 37.5 MG po q am NE HCL Longer Erwinna CAPS for Active PA weight loss CIPRO 500 1 tablet CIPROFLOX 25143233243 No Casey Active MG TAB by mouth ACIN HCL Longer Erwinna twice Active PA daily NECON 1/35 1 po NORETHIND 76045112765 No Casey Active (28) 1-35 daily LINDA-ETH Longer Leonarda MG-MCG ESTRADIOL Active PA TABS TRAMADOL 1 po tid TRAMADOL 63565067296 No Casey Active HCL 50 MG with ES HCL Longer Erwinna TABS Tylenol Active PA FLUCONAZOL one p.o. FLUCONAZO 73785663463 No Casey Active E 100 MG q. day 2 LE Longer Leonarda TABS days Active PA POTASSIUM 1 capsule POTASSIUM 73546753043 No Casey Active CHLORIDE by mouth CHLORIDE Longer Leonarda CR 10 MEQ daily Active PA CPCR IMIPRAMINE Take 6 IMIPRAMIN 77692773863 Active Joseph Pineda Active HCL 50 MG tablets E HCL Farooq DO TABS by mouth at bedtime DIFLUCAN 1 tablet FLUCONAZO 35439504625 No Joseph W Active 100 MG TAB by mouth LE Longer Farooq DO daily Active METOPROLOL 1/2 tab METOPROLO 88949255474 Active Joseph W Active TARTRATE po bid L Farooq DO 25 MG TABS TARTRATE VERAPAMIL 2 po bid VERAPAMIL 93476949992 Active Joseph Pineda Active HCL CR 120 HCL Farooq DO MG TAB CR PERMETHRIN apply PERMETHRI 32665419217 No Joseph Pineda Active 5 % CREA neck to N Longer Farooq DO toes Active tonight and then rinse off in morning. repeat at 7 days SEROQUEL one p.o. QUETIAPIN 20158120534 No Joseph W Active XR 50 MG q. E Longer Farooq DO [id number] evening FUMARATE Active TRAMADOL 1-2 TRAMADOL 97017107419 No Joseph W Active HCL 50 MG tablets HCL Longer Farooq DO TABS every 6-8 Active hours as needed for pain ALPRAZOLAM one p.o. ALPRAZOLA 64996861723 Active Joseph W Active 3 MG q.h.s. M Farooq DO [id number] ALPRAZOLAM Take 1 ALPRAZOLA 77175225732 No Joseph W Active XR tablet by M Longer Farooq DO [id number] mouth at [id number] Active bedtime DIFLUCAN 1 tablet FLUCONAZO 47302645750 No Joseph W Active 100 MG TAB by mouth MAGNO Longer Farooq DO daily Active AMBIEN 10 1 tab by ZOLPIDEM 11706133345 Active Joseph W Active MG TAB mouth at TARTRATE Farooq DO bedtime as needed for sleep DIFLUCAN 100 1 tablet DIFLUCAN 915035 FLUCONAZOLE Inactive MG TAB by mouth 100 MG TAB daily ALPRAZOLAM Take 1 ALPRAZOLAM ALPRAZOLAM Inactive XR [id number] tablet by XR [id number] mouth at [id number] bedtime TRAMADOL HCL 1-2 TRAMADOL 912889 TRAMADOL HCL Inactive 50 MG TABS tablets HCL 50 MG every 6-8 TABS hours as needed for pain SEROQUEL XR one p.o. SEROQUEL XR QUETIAPINE Inactive 50 MG q. evening 50 MG FUMARATE [id number] PERMETHRIN 5 apply neck PERMETHRIN 253462 PERMETHRIN Inactive % CREA to toes 5 % CREA tonight and then rinse off in morning. repeat at 7 days DIFLUCAN 100 1 tablet DIFLUCAN 339333 FLUCONAZOLE Inactive MG TAB by mouth 100 MG TAB daily POTASSIUM 1 capsule POTASSIUM POTASSIUM Inactive CHLORIDE CR by mouth CHLORIDE CR CHLORIDE 10 MEQ CPCR daily 10 MEQ CPCR FLUCONAZOLE one p.o. FLUCONAZOLE 19760111 FLUCONAZOLE Inactive 100 MG TABS q. day 2 100 MG TABS days TRAMADOL HCL 1 po tid TRAMADOL 560490 TRAMADOL HCL Inactive 50 MG TABS with ES HCL 50 MG Tylenol TABS NECON 1/35 1 po daily NECON 1/35 NORETHINDRONE- Inactive (28) 1-35 (28) 1-35 ETH ESTRADIOL MG-MCG TABS MG-MCG TABS CIPRO 500 MG 1 tablet CIPRO 500 595246 CIPROFLOXACIN Inactive TAB by mouth MG TAB HCL twice daily ADIPEX-P 1/2 tab po ADIPEX-P 336414 PHENTERMINE Inactive 37.5 MG CAPS q am for 37.5 MG HCL weight CAPS loss ABILIFY 2 MG 1 po q hs ABILIFY 2 113101 ARIPIPRAZOLE Inactive TABS for major MG TABS depression HYDROCHLOROT 2 tabs HYDROCHLORO 566924 HYDROCHLOROTHI Inactive HIAZIDE 25 every THIAZIDE 25 AZIDE MG TABS morning MG TABS ABILIFY 5 MG one p.o. ABILIFY 5 879364 ARIPIPRAZOLE Inactive TABS q. day MG TABS CIPROFLOXACI Take one CIPROFLOXAC 335117 CIPROFLOXACIN Inactive N HCL 500 MG (1) tablet IN HCL 500 HCL TABS by mouth MG TABS twice a day PROMETHAZINE 1 tab by PROMETHAZIN 676590 PROMETHAZINE Inactive HCL 25 MG mouth E HCL 25 MG HCL TABS every 6 TABS hours as needed PHENTERMINE 1 po q am PHENTERMINE 553013 PHENTERMINE Inactive HCL 37.5 MG for wt. HCL 37.5 MG HCL TABS loss TABS AMARYL 1 MG 1 tab AMARYL 1 MG 931096 GLIMEPIRIDE Inactive TABS twice TABS daily METFORMIN 1 tablet METFORMIN 600443 METFORMIN HCL Inactive HCL 500 MG by mouth HCL 500 MG TABS twice TABS daily SPIRONOLACTO 1 tablet SPIRONOLACT 610065 SPIRONOLACTONE Inactive NE 25 MG TAB by mouth ONE 25 MG daily TAB POTASSIUM 2 capsule POTASSIUM POTASSIUM Inactive CHLORIDE CR by mouth CHLORIDE CR CHLORIDE 10 MEQ CPCR daily 10 MEQ CPCR LISINOPRIL 1 tablet LISINOPRIL 585465 LISINOPRIL Inactive 20 MG TABS by mouth 20 MG TABS daily DIFLUCAN 100 1 tablet DIFLUCAN 398284 FLUCONAZOLE Inactive MG TABS by mouth 100 MG TABS every other day for 2 doses DIFLUCAN 100 1 tablet DIFLUCAN 467342 FLUCONAZOLE Inactive MG TAB by mouth 100 MG TAB daily x 3 days PREDNISONE 2 tablets PREDNISONE 384552 PREDNISONE Inactive 20 MG TAB today, 20 MG TAB then 1 tablet days 2-4 VYVANSE 20 1 tablet VYVANSE 20 LISDEXAMFETAMI Inactive MG ORAL CAPS daily for MG ORAL NE DIMESYLATE binge CAPS eating disorder TRAMADOL HCL 1/2 po tid TRAMADOL 081236 TRAMADOL HCL Inactive 50 MG TABS with ES HCL 50 MG Tylenol TABS prn pain AMOXICILLIN 2 po BID x AMOXICILLIN 394430 AMOXICILLIN Inactive 500 MG CAPS 10 days 500 MG CAPS PREDNISONE 2 tabs PREDNISONE 080500 PREDNISONE Inactive 20 MG TAB daily for [...] Panel - Chemistry sodium, serum 137 mmol/L 106-938 3362/08/29 potassium, serum 4.1 mmol/L 3.5-5.2 chloride, serum 100 mmol/L 98-107 carbon dioxide, venous blood 31.1 mmol/L 21.0-32.0 blood glucose 138 mg/dL 65-110 calcium, serum 9.2 mg/dL 8.5-10.1 urea nitrogen, blood 9 mg/dL 7-18 creatinine, serum 0.80 mg/dL 0.60-1.30 Lab Report: CBC, Comp. Metabolic Panel, HGBA1C - Chemistry sodium, serum 140 mmol/L 105-301 1044/04/13 potassium, serum 3.9 mmol/L 3.5-5.2 chloride, serum [...] 219 10^3/MM^3 10*3/mm3 142-424 Lab Report: Chlamydia/GC APTIMA/[id number] - Lab chlamydia DNA probe NOT DETECTED NOT DETECTED Lab Report: Chlamydia/GC APTIMA/[id number] - Microbiology Neisseria gonorrhoeae DNA probe NOT [...] mg/g mg/g{creat} 0-29 sodium, serum 140 mmol/L 694-424 6063/07/21 potassium, serum 3.9 mmol/L 3.5-5.2 chloride, serum [...] 142-424 Encounters Code Encounter Date Provider Facility CPT-67538 Level 3 Est. Patient Joseph Pineda [facility] 14:42:12 CDT -[facility] CPT-71246 Level 3 Est. Patient Joseph Pineda [facility] 22:18:20 CDT -[facility] CPT-20133 Level 3 Est. Patient Joseph Pineda [facility] 16:46:04 CDT -[facility] CPT-62118 Level 3 Est. Patient Joseph Pineda [facility] 15:39:53 CDT -[facility] CPT-61589 Level 3 Est. Patient Maite Sanchez MD [facility] 13:33:34 CDT -[facility] CPT-50889 Level 3 Est. Patient Joseph Pineda [facility] 11:37:08 CDT -[facility] CPT-27309 Level 3 Est. Patient Joseph Pineda [facility] 17:13:29 [employer] -[facility] CPT-00138 Level 3 Est. Patient Joseph Pineda [facility] 18:42:44 CDT CPT-94269 Level 3 Est. Patient Joseph Edwin [facility] 16:25:39 CDT CPT-13599 Level 3 Est. Patient Casey Brower [facility] 09:52:45 CDT -[facility] CPT-47011 Level 3 Est. Patient Joseph Edwin [facility] 11:03:29 [employer] -[facility] CPT-99999 Level 3 Est. Patient Joseph Pineda [facility] 11:03:08 [employer] -[facility] CPT-42435 Level 3 Est. Patient Joseph Pineda [facility] 14:33:31 CDT -[facility] CPT-42119 Level 3 Est. Patient Joseph Pineda [facility] 17:05:02 [employer] -[facility] CPT-08303 Level 3 Est. Patient Joseph Edwin [facility] 17:48:06 [employer] -[facility] CPT-41350 Level 3 Est. Patient Joseph Pineda [facility] 14:59:22 [employer] -[facility] CPT-49220 Level 3 Est. Patient Joseph Edwin [facility] - 21:45:56 [employer] [place] [facility] CPT-75910 Level 3 Est. Patient Joseph Pineda [facility] 21:29:50 [facility] CPT-12508 Level 3 Est. Patient Joseph Pineda [facility] 12:41:09 [facility] Procedures Code Procedure Name Date Entry Date Standard Description CPT-21379 Sono transvag pelvis non OB uterus ovaries cervix 18:04:34 T CPT-65968 Venipuncture Draw Fee 08:55:49 [employer]
--- OUTSIDE RECORDS SUMMARY | 2016-11-20 13:43 | External Medical Summary | Clinical Summary ---
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 killed her NKDA Critical Active Indigo Yokum MENTAL HEALTH TECHNICIAN NKDA Critical No Longer Indigo Yokum MENTAL HEALTH TECHNICIAN Active NKDA Critical Inactive Adrianna Elder [...] 311 Active Indigo Depressive chronic 09/20 Yokum MENTAL HEALTH TECHNICIAN disorder, not elsewhere classified SCABIES 133.0 Resolved Maite Gutierrez Scabies 06/23 Laura ONEAL PhD HYPERTENSION 401.9 Active Joseph Pineda Unspecified 05/24 Farooq DO essential hypertension FATIGUE 780.79 Resolved Indigo Other malaise 05/24 07/02 Yokum MENTAL HEALTH TECHNICIAN and fatigue SLEEP APNEA, 327.23 Active Joseph Pineda Obstructive OBSTRUCTIVE, 06/27 06/27 Farooq DO sleep apnea MILD (adult) (pediatric) OVERWEIGHT 278.02 Inactive Joseph Pineda Overweight 06/28 06/28 Farooq DO Obesity 278.00 Active Indigo Obesity, 06/28 10/18 Yokum MENTAL HEALTH TECHNICIAN unspecified OT GENERAL V70.3 Resolved Maite C Other general MEDICAL Laura ONEAL medical EXAMINATION PhD examination for ADMIN administrative PURPOSES purposes OTHER 790.29 Resolved Maite C Other abnormal ABNORMAL 05/20 Laura ONEAL glucose GLUCOSE PhD ACUTE 466.0 Resolved Maite Gutierrez Acute bronchitis BRONCHITIS 09/02 Laura ONEAL PhD DEPENDENT 782.3 Resolved Indigo Edema EDEMA, LEGS, 10/29 10/18 Yokum MENTAL HEALTH TECHNICIAN BILATERAL HYPOKALEMIA, 276.8 Resolved Indigo Hypopotassemia MILD 10/29 07/02 Yo MENTAL HEALTH TECHNICIAN Diabetes, 250.00 Inactive Joseph Pineda Diabetes Type 2 06/27 06/27 Farooq DO mellitus without mention of complication, type II or unspecified type, not stated as uncontrolled Diabetes 250.02 Resolved Indigo Diabetes mellitus, 06/27 10/18 Yokum MENTAL HEALTH TECHNICIAN mellitus without type II, mention of [...] Resolved Indigo Routine gynecological 12/14 07/02 Yo MENTAL HEALTH TECHNICIAN gynecological examination examination Postmenopausa 627.1 Resolved Indigo Postmenopausal l bleeding 12/14 07/02 Yokum MENTAL HEALTH TECHNICIAN bleeding Screening for V76.51 Resolved Indigo Screening for malignant 12/26 07/02 Yokum MENTAL HEALTH TECHNICIAN malignant neoplasms of neoplasms of colon colon Insomnia, 307.42 Active 2015/0 Indigo 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 MENTAL HEALTH TECHNICIAN disorder of initiating or maintaining sleep Establish V68.89 Resolved Indigo Encounters for care or get 01/16 07/02 Yokum MENTAL HEALTH TECHNICIAN other specified acquainted administrative visit purpose Weakness, 342.90 Resolved Indigo Hemiplegia, left side of 06/20 10/18 Yokum MENTAL HEALTH TECHNICIAN unspecified, body affecting unspecified side TIA 435.9 Active Indigo Unspecified 06/20 07/02 Yokum MENTAL HEALTH TECHNICIAN transient cerebral ischemia Knee pain, 719.46 Active Indigo Pain in joint bilateral 06/20 10/18 Yokum MENTAL HEALTH TECHNICIAN involving lower leg Bronchitis 490 Resolved Indigo Bronchitis, not 07/23 10/18 Yokum MENTAL HEALTH TECHNICIAN specified as acute or chronic Diabetes 357.2 Active Maliheh Polyneuropathy mellitus, 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 Knee pain, 719.46 Resolved Indigo Pain in joint right 06/20 09/20 Yokum MENTAL HEALTH TECHNICIAN involving lower leg Jesi 112.3 Resolved Indigo Candidiasis of intertrigo 10/09 09/20 Yokum MENTAL HEALTH TECHNICIAN skin and nails Hyperlipidemi 272.4 Active Anne Other and a 12/24 12/24 Neil unspecified RMA hyperlipidemia Incontinence, 788.33 Resolved Indigo Mixed mixed, 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 MENTAL HEALTH TECHNICIAN incontinence urge/stress (female) (male) Female stress 625.6 Active Yury Monaco Stress incontinence 01/03 01/03 Cy patel MD female Vaginal odor 623.8 Resolved Indigo Other specified 05/28 09/20 Yokum MENTAL HEALTH TECHNICIAN noninflammatory disorders of vagina Urinary tract 599.0 Resolved Indigo Urinary tract infection 05/28 09/20 Yokum MENTAL HEALTH TECHNICIAN infection, site not specified Urine odor 791.9 Resolved Indigo Other 05/28 09/20 [facility]okum MENTAL HEALTH TECHNICIAN nonspecific findings on examination of urine Unspecified Resolved Indigo dyspareunia 08/19 09/20 Yokum MENTAL HEALTH TECHNICIAN Depression Resolved Indigo 09/20 Yokum MENTAL HEALTH TECHNICIAN Anxiety Active Indigo Anxiety state, Disorder 08/26 MENTAL HEALTH TECHNICIAN unspecified ABNORMAL VAGINAL ICD-626.9 Inactive Maite C Laura BLEEDING PhD SCABIES ICD-133.0 Inactive Maite C Laura PhD FATIGUE ICD-780.79 Inactive Indigo Yokum MENTAL HEALTH TECHNICIAN OTH GENERAL ICD-V70.3 Inactive Maite C Laura MEDICAL MD PhD EXAMINATION ADMIN PURPOSES OTHER ABNORMAL ICD-790.29 Inactive Maite C Ronyril GLUCOSE PhD ACUTE BRONCHITIS ICD-466.0 Inactive Maite C Laura PhD DEPENDENT EDEMA, ICD-782.3 Inactive Indigo Yokum LEGS, BILATERAL MENTAL HEALTH TECHNICIAN HYPOKALEMIA, MILD ICD-276.8 Inactive Indigo Yokum MENTAL HEALTH TECHNICIAN Diabetes mellitus, ICD-250.02 Inactive Indigo Yokum type II, MENTAL HEALTH TECHNICIAN uncontrolled Sinusitis, ICD-461.1 Inactive Ismael Coyne frontal, acute Amandeep ONEAL Laryngitis, acute ICD-464.00 Inactive Ismael Coyne Amandeep ONEAL Routine ICD-V72.31 Inactive Indigo Yokum gynecological MENTAL HEALTH TECHNICIAN examination Postmenopausal ICD-627.1 Inactive Indigo Yokum 2015 bleeding MENTAL HEALTH TECHNICIAN Screening for ICD-V76.51 Inactive Indigo Yokum 2015 malignant MENTAL HEALTH TECHNICIAN neoplasms of colon Establish care or ICD-V68.89 Inactive Indigo Yokum get acquainted MENTAL HEALTH TECHNICIAN visit Weakness, left ICD-342.90 Inactive Indigo Yokum side of body MENTAL HEALTH TECHNICIAN Bronchitis ICD-490 Inactive Indigo Yokum MENTAL HEALTH TECHNICIAN Knee pain, right ICD-719.46 Inactive Indigo Yokum MENTAL HEALTH TECHNICIAN Jesi intertrigo ICD-112.3 Inactive Indigo Yokum MENTAL HEALTH TECHNICIAN Incontinence, ICD-788.33 Inactive Indigo Yokum 2016 mixed, urge/stress MENTAL HEALTH TECHNICIAN Vaginal odor ICD-623.8 Inactive Indigo Yokum 09/20 MENTAL HEALTH TECHNICIAN Urinary tract ICD-599.0 Inactive Indigo Yokum 09/20 infection MENTAL HEALTH TECHNICIAN Urine odor ICD-791.9 Inactive Indigo Yokum MENTAL HEALTH TECHNICIAN Unspecified Inactive Indigo Yokum dyspareunia MENTAL HEALTH TECHNICIAN Depression Inactive Indigo Yokum MENTAL HEALTH TECHNICIAN Medication List Medication Instructions Start Stop Generic NDC Status Provider Patient Date Date Name Instruction ASPIR-LOW 81 MG 1 po daily ASPIRIN 32940715635 Active Indigo Active ORAL TBEC Yokum MENTAL HEALTH TECHNICIAN ALPRAZOLAM 3 MG one p.o. ALPRAZOLAM 49053375727 Active Indigo Active [id number] q.h.s. Yokum MENTAL HEALTH TECHNICIAN ABILIFY 10 MG Take one ARIPIPRAZOLE 57786324397 Active Indigo Active ORAL TABS tablet Yokum daily for MENTAL HEALTH TECHNICIAN depression CELEBREX 200 MG 1 tablet 2 CELECOXIB 42644690544 No Indigo Active CAPS by mouth 0 Longer Yokum daily with 1 Active MENTAL HEALTH TECHNICIAN meals 7 / 0 / 2 4 TROKENDI XR 100 1 tab by 2 TOPIRAMATE 03182749658 No Indigo Active MG ORAL mouth 0 Longer Yokum [id number] daily 1 Active MENTAL HEALTH TECHNICIAN 7 / 0 4 / 2 4 VESICARE 10 MG 1 pill by SOLIFENACIN 07271174453 Active Yury Monaco Active TABS mouth SUCCINATE Benoit daily for MD overactive bladder CIPRO 250 MG 1 tablet 2 CIPROFLOXACI 02153190581 No Indigo Active TAB by mouth 0 N HCL Longer Yokum twice 1 Active MENTAL HEALTH TECHNICIAN daily 7 METFORMIN HCL 2 tablets 2 METFORMIN 95351851035 No Indigo Active 500 MG TB24 by mouth 0 HCL Longer Yokum twice 1 Active MENTAL HEALTH TECHNICIAN daily 0 8 2 AMARYL 1 MG 1 tablet 2 GLIMEPIRIDE 17260129686 No Indigo Active ORAL TABS orally 0 Longer Yokum twice 1 Active MENTAL HEALTH TECHNICIAN daily 0 2 NYSTATIN 086966 apply to NYSTATIN 12753141101 Active Indigo Active UNIT/GM CREA rash TID Yokum PRN MENTAL HEALTH TECHNICIAN METOPROLOL 1 tab po METOPROLOL 58137793113 Active Indigo Active TARTRATE 25 MG bid TARTRATE Yokum TABS MENTAL HEALTH TECHNICIAN AZITHROMYCIN 2 po qd x 2 AZITHROMYCIN 46530879790 No Jillina Active 250 MG TABS 1 day, 0 Longer Frazell then 1 po 1 Active MENTAL HEALTH TECHNICIAN qd x 4 6 days / 0 3 / 2 6 PREDNISONE 20 2 pills 2 PREDNISONE 05343625771 No Jillina Active MG TAB daily x 4 0 Longer Frazell days 1 Active MENTAL HEALTH TECHNICIAN 6 / 0 3 / 2 5 PIOGLITAZONE take one a PIOGLITAZONE 15942208683 Active Maliheh Active HCL 30 MG ORAL day HCL Ziglari TABS FIRE [employer]SE CURER JANUVIA 100 MG 1 tablet 2 SITAGLIPTIN 08429402218 No Indigo Active TABS by mouth 0 PHOSPHATE Longer Yokum daily 1 Active MENTAL HEALTH TECHNICIAN 6 / 0 / 6 ATORVASTATIN 1 pill by ATORVASTATIN 65014133464 Active Indigo Active CALCIUM 10 MG mouth CALCIUM Yokum TABS nightly, MENTAL HEALTH TECHNICIAN for cholestero l NITROFURANTOIN One 2 NITROFURANTO 97175491615 No Indigo Active MONOHYD MACRO capsule 0 IN MONOHYD Longer Yokum 100 MG CAPS BID for 1 MACRO Active MENTAL HEALTH TECHNICIAN UTI 6 / 0 2 3 TRAMADOL HCL 50 1/2 po tid 2 TRAMADOL HCL 23382911673 No Jillina Active MG TABS with ES 0 Longer [place]ell Tylenol 1 Active MENTAL HEALTH TECHNICIAN prn pain 5 / 0 8 2 VYVANSE 20 MG 1 tablet 2 LISDEXAMFETA 37840785283 No Jillina Active ORAL CAPS daily for 0 MINE Longer Frazell binge 1 DIMESYLATE Active MENTAL HEALTH TECHNICIAN eating 5 disorder / 0 2 LASIX 20 MG TAB 2 tablet FUROSEMIDE 25097618300 Active Indigo Active by mouth Yokum daily MENTAL HEALTH TECHNICIAN PREDNISONE 20 2 tablets 2 PREDNISONE 79594386729 No Joseph W Active MG TAB today, 0 Longer Farooq DO then 1 1 Active tablet 5 days 2-4 / 0 4 / 3 DIFLUCAN 100 MG 1 tablet 2 FLUCONAZOLE 51768637514 No Joseph W Active TAB by mouth 0 Longer Farooq DO daily x 3 1 Active days 5 / 0 4 / 1 3 DIFLUCAN 100 MG 1 tablet 2 FLUCONAZOLE 50907943937 No Joseph W Active TABS by mouth 0 Longer Farooq DO every 1 Active other day 5 for 2 / doses 0 1 / 2 3 ZOFRAN 4 MG 1 po q6hr ONDANSETRON 34067812297 Active Joseph W Active TABS PRN Nausea HCL Farooq DO PREDNISONE 20 2 tabs 2 PREDNISONE 84295407877 No Joseph W Active MG TAB daily for 0 Longer Farooq DO 3 days, 1 1 Active tab daily 4 for 3 / days, 1/2 1 tab daily 0 for 2 days / 2 5 AMOXICILLIN 500 2 po BID x 2 AMOXICILLIN 78556203213 No Maite C Active MG CAPS 10 days 0 Longer Laura ONEAL 1 Active PhD 4 / 1 0 / 2 0 LISINOPRIL 20 1 tablet 2 LISINOPRIL 32196892722 No Maite C Active MG TABS by mouth 0 Longer Madhectorl MD daily 1 Active PhD 4 0 / 1 0 POTASSIUM 2 capsule 2 POTASSIUM 65083766418 No Joseph W Active CHLORIDE CR 10 by mouth 0 CHLORIDE Longer Farooq DO MEQ CPCR daily 1 Active 4 / 0 8 / 2 9 SPIRONOLACTONE 1 tablet 2 SPIRONOLACTO 08279955280 No Joseph W Active 25 MG TAB by mouth 0 NE Longer Farooq DO daily 1 Active 4 / 0 8 / 2 9 METFORMIN HCL 1 tablet 2 METFORMIN 35574315807 No Joseph W Active 500 MG TABS by mouth 0 HCL Longer Farooq DO twice 1 Active daily 4 / 0 8 / 2 9 AMARYL 1 MG 1 tab 2 GLIMEPIRIDE 79709295210 No Joseph W Active TABS twice 0 Longer Farooq DO daily 1 Active 4 / 0 8 / 2 9 PHENTERMINE HCL 1 po q am 2 PHENTERMINE 45117809280 No Joseph W Active 37.5 MG TABS for wt. 0 HCL Longer Farooq DO loss 1 Active 3 / 1 2 / 2 3 PROMETHAZINE 1 tab by 2 PROMETHAZINE 67782573246 No Joseph W Active HCL 25 MG TABS mouth 0 HCL Longer Farooq DO every 6 1 Active hours as 3 needed / 0 9 / 0 9 CIPROFLOXACIN Take one 2 CIPROFLOXACI 06231819494 No Joseph W Active HCL 500 MG TABS (1) tablet 0 N HCL Longer Farooq DO by mouth 1 Active twice a 3 day / 0 9 / 0 9 ABILIFY 5 MG one p.o. 2 ARIPIPRAZOLE 75742217492 No Joseph W Active TABS q. day 0 Longer Farooq DO 1 Active 3 / 0 9 / 0 9 HYDROCHLOROTHIA 2 tabs 2 HYDROCHLOROT 86410718891 No Joseph W Active ZIDE 25 MG TABS every 0 HIAZIDE Longer Farooq DO morning 1 Active 3 / 0 6 / 2 7 ABILIFY 2 MG 1 po q hs 2 ARIPIPRAZOLE 16474007954 No Joseph W Active TABS for major 0 Longer Farooq DO depression 1 Active 3 / 0 5 / 0 7 ADIPEX-P 37.5 1/2 tab po 2 PHENTERMINE 30194442692 No Casey Active MG CAPS q am for 0 HCL Longer [facility] weight 1 Active loss 3 / 0 5 / 0 1 CIPRO 500 MG 1 tablet 2 CIPROFLOXACI 40507387390 No Casey Active TAB by mouth 0 N HCL Longer [facility] twice 1 Active daily 3 / 0 5 / 0 1 NECON 1/35 (28) 1 po daily 2 NORETHINDRON 51708922833 No Casey Active 1-35 MG-MCG 0 E-ETH Longer [facility] TABS 1 ESTRADIOL Active 3 / 0 5 / 0 1 TRAMADOL HCL 50 1 po tid 2 TRAMADOL HCL 54972596834 No Casey Active MG TABS with ES 0 Longer [facility] Tylenol 1 Active 3 / 0 5 / 0 1 FLUCONAZOLE 100 one p.o. 2 FLUCONAZOLE 58454382078 No Casey Active MG TABS q. day 2 0 Longer [facility] days 1 Active 3 / 0 5 / 0 1 POTASSIUM 1 capsule 2 POTASSIUM 63653030817 No Casey Active CHLORIDE CR 10 by mouth 0 CHLORIDE Longer [facility] MEQ CPCR daily 1 Active 3 / 0 5 / 0 1 IMIPRAMINE HCL Take 6 IMIPRAMINE 90250169967 Active Indigo Active 50 MG TABS tablets by HCL [facility] mouth at MENTAL HEALTH TECHNICIAN bedtime DIFLUCAN 100 MG 1 tablet 2 FLUCONAZOLE 32467549615 No Joseph W Active TAB by mouth 0 Longer [facility] daily 1 Active 2 / 0 2 / 2 4 VERAPAMIL HCL 2 po bid VERAPAMIL 77863142923 Active Indigo Active CR 120 MG TAB HCL [facility] CR MENTAL HEALTH TECHNICIAN PERMETHRIN 5 % apply neck 2 PERMETHRIN 36518221153 No Joseph W Active CREA to toes 0 Longer [facility] tonight 1 Active and then 2 rinse off / in 0 morning. 1 repeat at / 7 days 2 0 SEROQUEL XR 50 one p.o. 2 QUETIAPINE 33969432002 No Joseph W Active MG [id number] q. evening 0 FUMARATE Longer Farooq DO 1 Active 2 / 0 1 / 2 0 TRAMADOL HCL 50 1-2 2 TRAMADOL HCL 69273723460 No Joseph W Active MG TABS tablets 0 Longer Farooq DO every 6-8 1 Active hours as 2 needed for / pain 0 1 / 2 0 ALPRAZOLAM XR Take 1 2 ALPRAZOLAM 95025944814 No Joseph W Active [id number] tablet by 0 [id number] Longer Farooq DO mouth at 1 Active bedtime 1 / 2 9 DIFLUCAN 100 MG 1 tablet 2 FLUCONAZOLE 77537917713 No Joseph W Active TAB by mouth 0 Longer Farooq DO daily 1 Active 0 / 0 6 AMBIEN 10 MG 1 tab by ZOLPIDEM 68669224046 Active Indigo Active TAB mouth at TARTRATE [facility] bedtime as MENTAL HEALTH TECHNICIAN needed for sleep DIFLUCAN 100 1 tablet DIFLUCAN 19760111 FLUCONAZOLE Inactive MG TAB by mouth 100 MG TAB daily ALPRAZOLAM Take 1 ALPRAZOLAM ALPRAZOLAM Inactive XR [id number] tablet by XR [id number] mouth at [id number] bedtime TRAMADOL HCL 1-2 TRAMADOL 253887 TRAMADOL HCL Inactive 50 MG TABS tablets HCL 50 MG every 6-8 TABS hours as needed for pain SEROQUEL XR one p.o. SEROQUEL XR QUETIAPINE Inactive 50 MG q. 50 MG FUMARATE [id number] evening [id number] PERMETHRIN 5 apply PERMETHRIN 958122 PERMETHRIN Inactive % CREA neck to 5 [...] days TRAMADOL HCL 1 po tid TRAMADOL 609194 TRAMADOL HCL Inactive 50 MG TABS with ES HCL 50 MG Tylenol TABS NECON 1/35 1 po NECON 1/35 NORETHINDRONE- Inactive (28) 1-35 daily (28) 1-35 ETH ESTRADIOL MG-MCG TABS MG-MCG TABS CIPRO 500 MG 1 tablet CIPRO 500 036514 CIPROFLOXACIN Inactive TAB by mouth MG TAB HCL twice daily ADIPEX-P 1/2 tab ADIPEX-P 885213 PHENTERMINE Inactive 37.5 MG CAPS po q am 37.5 MG HCL for CAPS weight loss ABILIFY 2 MG 1 po q hs ABILIFY 2 177558 ARIPIPRAZOLE Inactive TABS for major MG TABS depressio n HYDROCHLOROT 2 tabs HYDROCHLORO 558567 HYDROCHLOROTHI Inactive HIAZIDE 25 every THIAZIDE 25 AZIDE MG TABS morning MG TABS ABILIFY 5 MG one p.o. ABILIFY 5 104106 ARIPIPRAZOLE Inactive TABS q. day MG TABS CIPROFLOXACI Take one CIPROFLOXAC 630849 CIPROFLOXACIN Inactive N HCL 500 MG (1) IN HCL 500 HCL TABS tablet by MG TABS mouth twice a day PROMETHAZINE 1 tab by PROMETHAZIN 700461 PROMETHAZINE Inactive HCL 25 MG mouth E HCL 25 MG HCL TABS every 6 TABS hours as needed PHENTERMINE 1 po q am PHENTERMINE 294254 PHENTERMINE Inactive HCL 37.5 MG for wt. HCL 37.5 MG HCL TABS loss TABS AMARYL 1 MG 1 tab AMARYL 1 MG 984563 GLIMEPIRIDE Inactive TABS twice TABS daily METFORMIN 1 tablet METFORMIN 007855 METFORMIN HCL Inactive HCL 500 MG by mouth HCL 500 MG TABS twice TABS daily SPIRONOLACTO 1 tablet SPIRONOLACT 957455 SPIRONOLACTONE Inactive NE 25 MG TAB by mouth ONE 25 MG daily TAB POTASSIUM 2 capsule POTASSIUM POTASSIUM Inactive CHLORIDE CR by mouth CHLORIDE CR CHLORIDE 10 MEQ CPCR daily 10 MEQ CPCR LISINOPRIL 1 tablet LISINOPRIL 170515 LISINOPRIL Inactive 20 MG TABS by mouth 20 MG TABS daily DIFLUCAN 100 1 tablet DIFLUCAN 901748 FLUCONAZOLE Inactive MG TABS by mouth 100 MG TABS every other day for 2 doses DIFLUCAN 100 1 tablet DIFLUCAN 715283 FLUCONAZOLE Inactive MG TAB by mouth 100 MG TAB daily x 3 days PREDNISONE 2 tablets PREDNISONE 214273 PREDNISONE Inactive 20 MG TAB today, 20 MG TAB then 1 tablet days 2-4 VYVANSE 20 1 tablet VYVANSE 20 LISDEXAMFETAMI Inactive MG ORAL CAPS daily for MG ORAL NE DIMESYLATE binge CAPS eating disorder TRAMADOL HCL 1/2 po TRAMADOL 456507 TRAMADOL HCL Inactive 50 MG TABS tid with HCL 50 MG ES TABS Tylenol prn pain JANUVIA 100 1 tablet JANUVIA 100 SITAGLIPTIN Inactive MG TABS by mouth MG TABS PHOSPHATE daily AMARYL 1 MG 1 tablet AMARYL 1 MG 074267 GLIMEPIRIDE Inactive ORAL TABS orally ORAL TABS twice daily METFORMIN 2 tablets METFORMIN METFORMIN HCL Inactive HCL 500 MG by mouth HCL 500 MG TB24 twice TB24 daily TROKENDI XR 1 tab by TROKENDI XR TOPIRAMATE Inactive 100 MG ORAL mouth 100 MG ORAL [id number] daily [id number]-LOV CELEBREX 200 1 tablet CELEBREX 500706 CELECOXIB Inactive MG CAPS by mouth 200 MG CAPS daily with meals AMOXICILLIN 2 po BID AMOXICILLIN 310739 AMOXICILLIN Inactive 500 MG CAPS x 10 days 500 MG CAPS PREDNISONE 2 tabs PREDNISONE 356602 PREDNISONE Inactive 20 MG TAB daily for 20 MG TAB 3 days, 1 tab daily for 3 days, 1/2 tab daily for 2 days NITROFURANTO One NITROFURANT 2127890 NITROFURANTOIN Inactive IN MONOHYD capsule OIN MONOHYD MONOHYD MACRO MACRO 100 MG BID for MACRO 100 CAPS UTI MG CAPS PREDNISONE 2 pills PREDNISONE 903891 PREDNISONE Inactive 20 MG TAB daily x 4 20 MG TAB days AZITHROMYCIN 2 po qd x AZITHROMYCI 2203703 AZITHROMYCIN Inactive 250 MG TABS 1 day, N 250 MG then 1 po TABS qd x 4 days CIPRO 250 MG 1 tablet CIPRO 250 449153 CIPROFLOXACIN Inactive TAB by mouth MG TAB HCL twice daily Advance Directives Directive Description Start Date PERMISSION TO SHARE Vital Signs Date Name Value Unit Range Description blood pressure, diastolic 68 mm[Hg] BP nunez blood pressure, systolic 139 mm[Hg] BP sys height E&M 62 [in_us] Bdy height pulse rate E&M 75 /min Heart rate temperature E&M 98.2 [degF] Body temperature weight E&M 255 [lb_av] Weight Measured blood pressure, diastolic 65 mm[Hg] BP nunez blood pressure, systolic 135 mm[Hg] BP sys pulse rate E&M 85 /min Heart rate temperature E&M 98.2 [degF] Body temperature weight E&M 255 [lb_av] Weight Measured blood pressure, diastolic 66 mm[Hg] BP nunez blood pressure, systolic 137 mm[Hg] BP sys pulse rate E&M 88 /min Heart rate temperature E&M 96.6 [degF] Body temperature weight E&M 255.5 [lb_av] Weight Measured blood pressure, diastolic 83 mm[Hg] BP nunez blood pressure, systolic 113 mm[Hg] BP sys pulse rate E&M 78 /min Heart rate temperature E&M 98.0 [degF] Body temperature weight E&M 245 [lb_av] Weight Measured blood pressure, diastolic 65 mm[Hg] BP nunez blood pressure, systolic 115 mm[Hg] BP sys pulse rate E&M 80 /min Heart rate temperature E&M 97.6 [degF] Body temperature weight E&M 245 [lb_av] Weight Measured blood pressure, diastolic 65 mm[Hg] BP nunez blood pressure, systolic 115 mm[Hg] BP sys pulse rate E&M 85 /min Heart rate temperature E&M 97.5 [degF] Body temperature weight E&M 245.5 [lb_av] Weight Measured blood pressure, diastolic 65 mm[Hg] BP nunez blood pressure, systolic 107 mm[Hg] BP sys pulse rate E&M 81 /min Heart rate temperature E&M 98.3 [degF] Body temperature weight E&M 251 [lb_av] Weight Measured Diagnostic Results Date Name Value Unit Range Description Lab Report: CBC, Comp. Metabolic Panel, HGBA1C, Lipid Panel - Chemistry sodium, serum 143 mmol/L 679-792 7411/06/05 carbon dioxide, venous blood 30.4 mmol/L 21.0-32.0 [...] 6.0 % 4.3-6.0 cholesterol, serum 176 mg/dL 359-877 7246/06/05 triglyceride, serum, fasting 41 mg/dL 30-200 HDL [...] 152 10^3/MM^3 10*3/mm3 142-424 Lab Report: Chlamydia/GC [id number] - Lab chlamydia DNA probe NOT DETECTED NOT DETECTED Lab Report: Chlamydia/GC [id number] - Microbiology Neisseria gonorrhoeae DNA probe NOT DETECTED NOT DETECTED Lab Report: Lipid Panel - Chemistry cholesterol, serum 157 mg/dL 643-791 4965/08/22 triglyceride, serum, fasting 215 mg/dL 30-200 HDL [...] negative Encounters Code Encounter Date Provider Facility CPT-05204 Level 4 Est. Patient Indigo Sexton ALEJANDRO [facility] - 16:58:20 CDT [place] CPT-98186 Level 3 Est. Patient Yury Benoit MD [facility] 17:20:07 CDT CPT-15893 Level 4 Est. Patient Indigo Sexton [facility] - 17:02:40 MICRO PHOTOGRAPHER [place] CPT-50484 Level 4 New Patient Yury Benoit MD [facility] 15:17:12 CDT CPT-02341 Level 3 Est. Patient Indigo Sexton [facility] - 13:37:46 CDT [place] CPT-47670 Level 4 Est. Patient Indigo Sexton [facility] - 10:01:06 CDT [place] CPT-32328 Level 3 Est. Patient [facility] 08:58:07 CDT [employer] CPT-05847 Level 3 Est. [facility] 14:40:56 CDT MENTAL HEALTH TECHNICIAN CPT-48273 Level 4 Est. Patient [facility] 17:29:53 MICRO PHOTOGRAPHER [employer] CPT-31513 Level 4 Est. [facility] MICRO PHOTOGRAPHER CPT-64469 Level 3 Est. [facility] 18:59:38 CDT CPT-58280 Level 3 Est. Patient Joseph Pineda [facility] 14:42:12 CDT -[facility] CPT-49473 Level 3 Est. Patient Joseph Pineda [facility] 22:18:20 CDT -[facility] CPT-41394 Level 3 Est. Patient Joseph Pineda [facility] 16:46:04 CDT -[facility] CPT-64571 Level 3 Est. Patient Joseph Pineda [facility] 15:39:53 CDT -[facility] CPT-94164 Level 3 Est. Patient Maite Sanchez MD [facility] 13:33:34 CDT -[facility] CPT-12799 Level 3 Est. Patient Joseph Pineda [facility] 11:37:08 CDT -[facility] CPT-01236 Level 3 Est. Patient Joseph Pineda [facility] 17:13:29 MICRO PHOTOGRAPHER -[facility]HC CPT-18715 Level 3 Est. Patient Joseph Trivedi [facility] 18:42:44 CDT CPT-50948 Level 3 Est. Patient Joseph Pineda [facility] 16:25:39 CDT CPT-22478 Level 3 Est. Patient Casey Brower [facility] 09:52:45 CDT -[facility]HC CPT-89198 Level 3 Est. Patient Joseph Pineda [facility] 11:03:29 MICRO PHOTOGRAPHER -[facility]HC CPT-91460 Level 3 Est. Patient Joseph Pineda [facility] 11:03:08 MICRO PHOTOGRAPHER -RHC CPT-72181 Level 3 Est. Patient Joseph Pnieda [facility] 14:33:31 CDT -[facility]HC CPT-78142 Level 3 Est. Patient Joseph Pineda [facility] 17:05:02 MICRO PHOTOGRAPHER -RHC CPT-60724 Level 3 Est. Patient Joseph Pineda [facility] 17:48:06 MICRO PHOTOGRAPHER -RHC CPT-70278 Level 3 Est. Patient Joesph Pineda [facility] 14:59:22 MICRO PHOTOGRAPHER -RHC CPT-52971 Level 3 Est. Patient Joseph Pineda [facility] - 21:45:56 MICRO PHOTOGRAPHER Jose [facility] CPT-01235 Level 3 Est. Patient Joseph Pineda [facility] 21:29:50 CDT -RHC CPT-09940 Level 3 Est. Patient Joseph Pineda [facility] 12:41:09 CDT -RHC Procedures Code Procedure Name Date Entry Date Standard Description CPT-16220 Wet Mount - LAB USE ONLY 12:39:03 MICRO PHOTOGRAPHER CPT-67269 Vaginal Culture - LAB USE ONLY 12:39:03 MICRO PHOTOGRAPHER CPT-85225 Urine Culture - LAB USE ONLY 11:52:44 MICRO PHOTOGRAPHER CPT-27552 UA w micro - LAB USE ONLY 11:52:44 MICRO PHOTOGRAPHER CPT-86190 Postop F/U Visit 12:08:35 CDT CPT-94246 Postop F/U Visit 18:20:10 CDT CPT-A4351 [facility] Female Cath 09:37:10 CDT CPT-95775 Urine Dip (Floor Use Only) 15:17:13 CDT CPT-50902 Dil F ureth int 15:17:13 CDT CPT-76580 Venipuncture Draw Fee 09:19:08 CDT CPT-56308 Lipid - LAB USE ONLY 09:19:07 CDT CPT-JTINJ Asp/Joint Injection 09:26:49 CDT CPT-77483 Chest 2V Frontal and Lat 14:47:43 CDT CPT-JTINJ Asp/Joint Injection 09:51:53 MICRO PHOTOGRAPHER CPT-OV Office Visit 17:39:05 CDT CPT-OV Office Visit 15:19:50 CDT CPT-63458 Sono transvag pelvis non OB uterus ovaries cervix 18:04:34 CDT CPT-19713 Venipuncture Draw Fee 08:55:49 MICRO PHOTOGRAPHER
--- OUTSIDE RECORDS SUMMARY | 2016-11-20 13:44 | External Medical Summary | Clinical Summary ---
:1965 Author Organization [facility] Address [address] [place] [address] Phone Allergies, Adverse Reactions, Alerts Allergy Name [...] Name Instruction VYVANSE 20 1 tablet LISDEXAMFETAMINE 87581514425 Active Joseph Pineda Active MG ORAL daily for DIMESYLATE Farooq DO CAPS binge eating disorder METFORMIN 2 tablet METFORMIN HCL 85136582139 Active Joseph Pineda Active HCL 500 MG daily for Farooq DO TB24 blood sugars LASIX 20 2 tablet by FUROSEMIDE 09164564453 Active Joseph Pineda Active MG TAB mouth daily Farooq DO CELEBREX 1 tablet by CELECOXIB 83553008167 Active Joseph Pineda Active 200 MG mouth daily Farooq DO CAPS with meals PREDNISONE 2 tablets 2 PREDNISONE 23018672233 No Joseph Pineda Active 20 MG TAB today, then 0 Longer Farooq DO 1 tablet 1 Active days 2-4 5 / 0 4 / 3 DIFLUCAN 1 tablet by 2 FLUCONAZOLE 50950422390 No Joseph W Active 100 MG TAB mouth daily 0 Longer Farooq DO x 3 days 1 Active 5 / 0 4 / 3 AMARYL 1 1 tablet GLIMEPIRIDE 89070775150 Active Joseph Pineda Active MG ORAL orally Farooq DO TABS twice daily DIFLUCAN 1 tablet by 2 FLUCONAZOLE 73610484800 No Joseph W Active 100 MG mouth every 0 Longer Farooq DO TABS other day 1 Active for 2 doses 5 / 0 1 / 2 3 ZOFRAN 4 1 po q6hr ONDANSETRON HCL 72954617432 Active Bam Active MG TABS PRN Nausea W Luis ONEAL PREDNISONE 2 tabs 2 PREDNISONE 37119063724 No Joseph Pineda Active 20 MG TAB daily for 3 0 Longer Afrooq DO days, 1 tab 1 Active daily for 3 4 days, 1/2 / tab daily 1 for 2 days 0 / 2 5 TRAMADOL 1/2 po tid TRAMADOL HCL 24242288250 Active Joseph Pineda Active HCL 50 MG with ES Farooq DO TABS Tylenol prn pain AMOXICILLI 2 po BID x 2 AMOXICILLIN 81887590820 No Maite C Active N 500 MG 10 days 0 Longer Madril CAPS 1 Active PhD 0 / 2 0 LISINOPRIL 1 tablet by 2 LISINOPRIL 73081145544 No Maite C Active 20 MG TABS mouth 0 Longer Madril daily 1 Active PhD 0 / 1 0 POTASSIUM 2 capsule 2 POTASSIUM CHLORIDE 32709892358 No Joseph Pineda Active CHLORIDE by mouth 0 Longer Farooq DO CR 10 MEQ daily 1 Active CPCR 2 9 SPIRONOLAC 1 tablet by 2 SPIRONOLACTONE 40573299648 No Joseph Pineda Active TONE 25 MG mouth daily 0 Longer Farooq DO TAB 1 Active 4 / 0 8 / 2 9 METFORMIN 1 tablet 2 METFORMIN HCL 83499858010 No Joseph Pineda Active HCL 500 MG by mouth 0 Longer Farooq DO TABS twice daily 1 Active 4 / 0 8 / 2 9 AMARYL 1 1 tab twice 2 GLIMEPIRIDE 35643388403 No Joseph W Active MG TABS daily 0 Longer Farooq DO 1 Active 4 / 0 8 / 2 9 PHENTERMIN 1 po q am 2 PHENTERMINE HCL 94007096734 No Joseph W Active E HCL 37.5 for wt. 0 Longer Farooq DO MG TABS loss 1 Active 3 / 1 2 / 2 3 PROMETHAZI 1 tab by 2 PROMETHAZINE HCL 26547520877 No Joseph W Active NE HCL 25 mouth every 0 Longer Farooq DO MG TABS 6 hours as 1 Active needed 3 / 0 9 / 0 9 CIPROFLOXA Take one 2 CIPROFLOXACIN HCL 07072568066 No Joseph W Active DELORSE HCL (1) tablet 0 Longer Farooq DO 500 MG by mouth 1 Active TABS twice a day 3 / 0 9 / 0 9 ABILIFY 5 one p.o. q. 2 ARIPIPRAZOLE 65070576930 No Joseph W Active MG TABS day 0 Longer Farooq DO 1 Active 3 / 0 9 / 0 9 HYDROCHLOR 2 tabs 2 HYDROCHLOROTHIAZID 76890624878 No Joseph W Active OTHIAZIDE every 0 E Longer Farooq DO 25 MG TABS morning 1 Active 3 / 0 6 / 2 7 ABILIFY 2 1 po q hs 2 ARIPIPRAZOLE 59641177935 No Joseph W Active MG TABS for major 0 Longer Farooq DO depression 1 Active 3 / 0 5 / 0 7 ADIPEX-P 1/2 tab po 2 PHENTERMINE HCL 82025024970 No Casey Active 37.5 MG q am for 0 Longer Leonarda CAPS weight loss 1 Active PA 3 / 0 5 / 0 1 CIPRO 500 1 tablet by 2 CIPROFLOXACIN HCL 39486323805 No Casey Active MG TAB mouth twice 0 Longer Malone daily 1 Active PA 3 / 0 5 / 0 1 NECON 1/35 1 po daily 2 NORETHINDRONE-ETH 50472315226 No Casey Active (28) 1-35 0 ESTRADIOL Longer Malone MG-MCG 1 Active PA TABS 3 / 0 5 / 0 1 TRAMADOL 1 po tid 2 TRAMADOL HCL 86210152102 No Casey Active HCL 50 MG with ES 0 Longer Malone TABS Tylenol 1 Active PA 3 / 0 5 / 0 1 FLUCONAZOL one p.o. q. 2 FLUCONAZOLE 28085432569 No Casey Active E 100 MG day 2 days 0 Longer Malone TABS 1 Active PA 3 / 0 5 / 0 1 POTASSIUM 1 capsule 2 POTASSIUM CHLORIDE 47709448628 No Casey Active CHLORIDE by mouth 0 Longer Leonarda CR 10 MEQ daily 1 Active PA CPCR 3 / 0 5 / 0 1 IMIPRAMINE Take 6 IMIPRAMINE HCL 98016194129 Active Joseph W Active HCL 50 MG tablets by Farooq DO TABS mouth at bedtime DIFLUCAN 1 tablet by 2 FLUCONAZOLE 71632345409 No Joseph W Active 100 MG TAB mouth daily 0 Longer Farooq DO 1 Active 2 / 0 2 / 2 4 METOPROLOL 1/2 tab po METOPROLOL 86254177955 Active Joseph W Active TARTRATE bid TARTRATE Farooq DO 25 MG TABS VERAPAMIL 2 po bid VERAPAMIL HCL 21707352466 Active Joseph W Active HCL CR 120 Farooq DO MG TAB CR PERMETHRIN apply neck 2 PERMETHRIN 94835309124 No Joseph W Active 5 % CREA to toes 0 Longer Farooq DO tonight and 1 Active then rinse 2 off in / morning. 0 repeat at 7 1 days / 2 0 SEROQUEL one p.o. q. 2 QUETIAPINE 69445891732 No Joseph W Active XR 50 MG evening 0 FUMARATE Longer Farooq DO [id number] 1 Active 2 / 0 1 / 2 0 TRAMADOL 1-2 tablets 2 TRAMADOL HCL 19557272737 No Joseph W Active HCL 50 MG every 6-8 0 Longer Farooq DO TABS hours as 1 Active needed for 2 pain / 0 1 / 2 0 ALPRAZOLAM one p.o. ALPRAZOLAM 81069886994 Active Joseph W Active 3 MG q.h.s. Farooq DO [id number] ALPRAZOLAM Take 1 2 ALPRAZOLAM 59209788034 No Joseph W Active XR tablet by 0 [id number] Longer Farooq DO [id number] mouth at 1 Active bedtime 1 / 2 9 DIFLUCAN 1 tablet by 2 FLUCONAZOLE 41866572849 No Joseph W Active 100 MG TAB mouth daily 0 Longer Farooq DO 1 Active 0 / 0 6 AMBIEN 10 1 tab by ZOLPIDEM TARTRATE 75615897862 Active Joseph W Active MG TAB mouth at Farooq DO bedtime as needed for sleep DIFLUCAN 100 1 tablet DIFLUCAN 687648 FLUCONAZOLE Inactive MG TAB by mouth 100 MG TAB daily ALPRAZOLAM Take 1 ALPRAZOLAM ALPRAZOLAM Inactive XR [id number] tablet by XR [id number] mouth at [id number] bedtime TRAMADOL HCL 1-2 TRAMADOL 692241 TRAMADOL HCL Inactive 50 MG TABS tablets HCL 50 MG every 6-8 TABS hours as needed for pain SEROQUEL XR one p.o. SEROQUEL XR QUETIAPINE Inactive 50 MG q. evening 50 MG FUMARATE [id number] PERMETHRIN 5 apply neck PERMETHRIN 793453 PERMETHRIN Inactive % CREA to toes 5 % CREA tonight and then rinse off in morning. repeat at 7 days DIFLUCAN 100 1 tablet DIFLUCAN 533350 FLUCONAZOLE Inactive MG TAB by mouth 100 MG TAB daily POTASSIUM 1 capsule POTASSIUM POTASSIUM Inactive CHLORIDE CR by mouth CHLORIDE CR CHLORIDE 10 MEQ CPCR daily 10 MEQ CPCR FLUCONAZOLE one p.o. FLUCONAZOLE 077591 FLUCONAZOLE Inactive 100 MG TABS q. day 2 100 MG TABS days TRAMADOL HCL 1 po tid TRAMADOL 202133 TRAMADOL HCL Inactive 50 MG TABS with ES HCL 50 MG Tylenol TABS NECON 1/35 1 po daily NECON 1/35 NORETHINDRONE- Inactive (28) 1-35 (28) 1-35 ETH ESTRADIOL MG-MCG TABS MG-MCG TABS CIPRO 500 MG 1 tablet CIPRO 500 499266 CIPROFLOXACIN Inactive TAB by mouth MG TAB HCL twice daily ADIPEX-P 1/2 tab po ADIPEX-P 730091 PHENTERMINE Inactive 37.5 MG CAPS q am for 37.5 MG HCL weight CAPS loss ABILIFY 2 MG 1 po q hs ABILIFY 2 275617 ARIPIPRAZOLE Inactive TABS for major MG TABS depression HYDROCHLOROT 2 tabs HYDROCHLORO 370316 HYDROCHLOROTHI Inactive HIAZIDE 25 every THIAZIDE 25 AZIDE MG TABS morning MG TABS ABILIFY 5 MG one p.o. ABILIFY 5 835431 ARIPIPRAZOLE Inactive TABS q. day MG TABS CIPROFLOXACI Take one CIPROFLOXAC 513194 CIPROFLOXACIN Inactive N HCL 500 MG (1) tablet IN HCL 500 HCL TABS by mouth MG TABS twice a day PROMETHAZINE 1 tab by PROMETHAZIN 700372 PROMETHAZINE Inactive HCL 25 MG mouth E HCL 25 MG HCL TABS every 6 TABS hours as needed PHENTERMINE 1 po q am PHENTERMINE 188980 PHENTERMINE Inactive HCL 37.5 MG for wt. HCL 37.5 MG HCL TABS loss TABS AMARYL 1 MG 1 tab AMARYL 1 MG 060105 GLIMEPIRIDE Inactive TABS twice TABS daily METFORMIN 1 tablet METFORMIN 009106 METFORMIN HCL Inactive HCL 500 MG by mouth HCL 500 MG TABS twice TABS daily SPIRONOLACTO 1 tablet SPIRONOLACT 944467 SPIRONOLACTONE Inactive NE 25 MG TAB by mouth ONE 25 MG daily TAB POTASSIUM 2 capsule POTASSIUM POTASSIUM Inactive CHLORIDE CR by mouth CHLORIDE CR CHLORIDE 10 MEQ CPCR daily 10 MEQ CPCR LISINOPRIL 1 tablet LISINOPRIL 579770 LISINOPRIL Inactive 20 MG TABS by mouth 20 MG TABS daily DIFLUCAN 100 1 tablet DIFLUCAN 528100 FLUCONAZOLE Inactive MG TABS by mouth 100 MG TABS every other day for 2 doses DIFLUCAN 100 1 tablet DIFLUCAN 885909 FLUCONAZOLE Inactive MG TAB by mouth 100 MG TAB daily x 3 days PREDNISONE 2 tablets PREDNISONE 153445 PREDNISONE Inactive 20 MG TAB today, 20 MG TAB then 1 tablet days 2-4 AMOXICILLIN 2 po BID x AMOXICILLIN 872024 AMOXICILLIN Inactive 500 MG CAPS 10 days 500 MG CAPS PREDNISONE 2 tabs PREDNISONE 476735 PREDNISONE Inactive 20 MG TAB daily for [...] Panel - Chemistry sodium, serum 137 mmol/L 909-608 9100/08/29 potassium, serum 4.1 mmol/L 3.5-5.2 chloride, serum 100 mmol/L 98-107 carbon dioxide, venous blood 31.1 mmol/L 21.0-32.0 blood glucose 138 mg/dL 65-110 calcium, serum 9.2 mg/dL 8.5-10.1 urea nitrogen, blood 9 mg/dL 7-18 creatinine, serum 0.80 mg/dL 0.60-1.30 Lab Report: CBC, Comp. Metabolic Panel, HGBA1C - Chemistry sodium, serum 140 mmol/L 663-428 2687/04/13 potassium, serum 3.9 mmol/L 3.5-5.2 chloride, serum [...] mg/g mg/g{creat} 0-29 sodium, serum 140 mmol/L 035-885 5995/07/21 potassium, serum 3.9 mmol/L 3.5-5.2 chloride, serum 102 mmol/L 98-107 carbon dioxide, venous blood 33.4 mmol/L 21.0-32.0 blood glucose 156 mg/dL 65-110 calcium, serum 8.4 mg/dL 8.5-10.1 urea nitrogen, blood 14 mg/dL 7-18 creatinine, serum 1.00 mg/dL 0.60-1.30 Lab Report: Thyroid Stimulating Hormone (L), MICROALBUMIN, Basic Metabol ... - Lab microalbumin, urine 80 0-19 Encounters Code Encounter Date Provider Facility CPT-42083 Level 3 Est. Patient Joseph Pineda [facility] 14:42:12 CDT -C CPT-19901 Level 3 Est. Patient Joseph Edwin [facility] 22:18:20 CDT -RHC CPT-11295 Level 3 Est. Patient [facility] 16:46:04 CDT -RHC CPT-54181 Level 3 Est. Patient [facility] 15:39:53 CDT -RHC CPT-12264 Level 3 Est. Patient Maite Sanchez MD [facility] 13:33:34 CDT -RHC CPT-49725 Level 3 Est. Patient [facility] 11:37:08 CDT -RHC CPT-36987 Level 3 Est. Patient [facility] 17:13:29 DRAMA DIRECTOR -RHC CPT-10266 Level 3 Est. Patient [facility] 18:42:44 CDT CPT-44080 Level 3 Est. Patient [facility] 16:25:39 CDT CPT-55073 Level 3 Est. Patient Casey Brower [facility] 09:52:45 CDT -RHC CPT-96221 Level 3 Est. Patient [facility] 11:03:29 DRAMA DIRECTOR -RHC CPT-82260 Level 3 Est. Patient [facility] 11:03:08 DRAMA DIRECTOR -RHC CPT-28981 Level 3 Est. Patient [facility] 14:33:31 CDT -RHC CPT-09181 Level 3 Est. Patient [facility] 17:05:02 DRAMA DIRECTOR -RHC CPT-48279 Level 3 Est. Patient [facility] 17:48:06 DRAMA DIRECTOR -RHC CPT-68916 Level 3 Est. Patient Joseph Edwin Farooq [facility] 14:59:22 [facility] CPT-32436 Level 3 Est. Patient Joseph Trivedi [facility] - 21:45:56 [facility] CPT-45581 Level 3 Est. Patient Joseph Pineda [facility] 21:29:50 [facility] CPT-04242 Level 3 Est. Patient Joseph Pineda [facility] 12:41:09 [facility] Procedures Code Procedure Name Date Entry Date Standard Description CPT-78141 Venipuncture Draw Fee 08:55:49 DRAMA DIRECTOR
--- OUTSIDE RECORDS SUMMARY | 2016-11-20 13:45 | External Medical Summary | Clinical Summary ---
:1965 Author Organization [facility] Address [address] [address] Phone Allergies, Adverse Reactions, Alerts Allergy Name Reaction Description Start Date Severity Status Provider VERSED States jsut about Critical Active Gloria Saavedra NEW PRODUCT TRAINER killed her NKDA Critical Active Indigo Yokum GENERAL SERVICE OFFICER NKDA Critical No Longer Indigo Y[facility]um GENERAL SERVICE OFFICER Active NKDA Critical Inactive Adrianna Elder [...] 311 Active Indigo Depressive chronic 09/20 [facility]um GENERAL SERVICE OFFICER disorder, not elsewhere classified SCABIES 133.0 Resolved Maite Gutierrez Scabies 06/23 Laura ONEAL PhD HYPERTENSION 401.9 Active Joseph Pineda Unspecified 05/24 Farooq DO essential hypertension FATIGUE 780.79 Resolved Indigo Other malaise 05/24 07/02 [facility]um GENERAL SERVICE OFFICER and fatigue SLEEP APNEA, 327.23 Active Joseph Pineda Obstructive OBSTRUCTIVE, 06/27 06/27 Farooq DO sleep apnea MILD (adult) (pediatric) OVERWEIGHT 278.02 Inactive Joseph Pineda Overweight 06/28 06/28 Farooq DO Obesity 278.00 Active Indigo Obesity, 06/28 10/18 [facility]um GENERAL SERVICE OFFICER unspecified OT GENERAL V70.3 Resolved Maite C Other general MEDICAL Laura ONEAL medical EXAMINATION PhD examination for ADMIN administrative PURPOSES purposes OTHER 790.29 Resolved Maite C Other abnormal ABNORMAL 05/20 Laura ONEAL glucose GLUCOSE PhD ACUTE 466.0 Resolved Maite Gutierrez Acute bronchitis BRONCHITIS 09/02 Laura ONEAL PhD DEPENDENT 782.3 Resolved Indigo Edema EDEMA, LEGS, 10/29 10/18 Yokum GENERAL SERVICE OFFICER BILATERAL HYPOKALEMIA, 276.8 Resolved Indigo Hypopotassemia MILD 10/29 07/02 Yo GENERAL SERVICE OFFICER Diabetes, 250.00 Inactive Joseph Pineda Diabetes Type 2 06/27 06/27 Farooq DO mellitus without mention of complication, type II or unspecified type, not stated as uncontrolled Diabetes 250.02 Resolved Indigo Diabetes mellitus, 06/27 10/18 Yokum GENERAL SERVICE OFFICER mellitus without type II, mention of [...] Indigo Routine gynecological 12/14 07/02 Yo GENERAL SERVICE OFFICER gynecological examination examination Postmenopausa 627.1 Resolved Indigo Postmenopausal l bleeding 12/14 07/02 Yokum GENERAL SERVICE OFFICER bleeding Screening for V76.51 Resolved Indigo Screening for malignant 12/26 07/02 [facility] GENERAL SERVICE OFFICER malignant neoplasms of neoplasms of colon colon Insomnia, 307.42 Active 2015/0 Indigo 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 GENERAL SERVICE OFFICER disorder of initiating or maintaining sleep Establish V68.89 Resolved Indigo Encounters for care or get 01/16 07/02 Y[facility]um GENERAL SERVICE OFFICER other specified acquainted administrative visit purpose Weakness, 342.90 Resolved Indigo Hemiplegia, left side of 06/20 10/18 [facility] GENERAL SERVICE OFFICER unspecified, body affecting unspecified side TIA 435.9 Active Indigo Unspecified 06/20 07/02 [facility]um GENERAL SERVICE OFFICER transient cerebral ischemia Knee pain, 719.46 Active Indigo Pain in joint bilateral 06/20 10/18 Yokum GENERAL SERVICE OFFICER involving lower leg Bronchitis 490 Resolved Indigo Bronchitis, not 07/23 10/18 Yokum GENERAL SERVICE OFFICER specified as acute or chronic Diabetes 357.2 Active Maliheh Polyneuropathy mellitus, 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 y Knee pain, 719.46 Resolved Indigo Pain in joint right 06/20 09/20 [facility] GENERAL SERVICE OFFICER involving lower leg Jesi 112.3 Resolved Indigo Candidiasis of intertrigo 10/09 09/20 Yokum GENERAL SERVICE OFFICER skin and nails Hyperlipidemi 272.4 Active Anne Other and a 12/24 12/24 Neil unspecified RMA hyperlipidemia Incontinence, 788.33 Resolved Indigo Mixed mixed, 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 GENERAL SERVICE OFFICER incontinence urge/stress (female) (male) Female stress 625.6 Active Yury Monaco Stress incontinence 01/03 01/03 Cy patel MD female Vaginal odor 623.8 Resolved Indigo Other specified 05/28 09/20 [facility] GENERAL SERVICE OFFICER noninflammatory disorders of vagina Urinary tract 599.0 Resolved Indigo Urinary tract infection 05/28 09/20 [facility]okum GENERAL SERVICE OFFICER infection, site not specified Urine odor 791.9 Resolved Indigo Other 05/28 09/20 [facility] GENERAL SERVICE OFFICER nonspecific findings on examination of urine Unspecified Resolved Indigo dyspareunia 08/19 09/20 [facility]um GENERAL SERVICE OFFICER Depression Resolved Indigo 09/20 [facility] GENERAL SERVICE OFFICER Anxiety Active Indigo Anxiety state, Disorder 08/26 GENERAL SERVICE OFFICER unspecified ABNORMAL VAGINAL ICD-626.9 Inactive Maite C Laura BLEEDING PhD SCABIES ICD-133.0 Inactive Maite C Laura PhD FATIGUE ICD-780.79 Inactive Indigo [facility]um GENERAL SERVICE OFFICER OTH GENERAL ICD-V70.3 Inactive Maite C Laura MEDICAL MD PhD EXAMINATION ADMIN PURPOSES OTHER ABNORMAL ICD-790.29 Inactive Maite C Ronyril GLUCOSE PhD ACUTE BRONCHITIS ICD-466.0 Inactive Maite C Laura PhD DEPENDENT EDEMA, ICD-782.3 Inactive Indigo Yokum LEGS, BILATERAL GENERAL SERVICE OFFICER HYPOKALEMIA, MILD ICD-276.8 Inactive Indigo Y[facility]um GENERAL SERVICE OFFICER Diabetes mellitus, ICD-250.02 Inactive Indigo Yokum type II, GENERAL SERVICE OFFICER uncontrolled Sinusitis, ICD-461.1 Inactive Ismael Coyne frontal, acute Amandeep ONEAL Laryngitis, acute ICD-464.00 Inactive Ismael Coyne Amandeep ONEAL Routine ICD-V72.31 Inactive Indigo Y[facility]um gynecological GENERAL SERVICE OFFICER examination Postmenopausal ICD-627.1 Inactive Indigo Yokum 2015 bleeding GENERAL SERVICE OFFICER Screening for ICD-V76.51 Inactive Indigo Yokum 2015 malignant GENERAL SERVICE OFFICER neoplasms of colon Establish care or ICD-V68.89 Inactive Indigo Yokum get acquainted GENERAL SERVICE OFFICER visit Weakness, left ICD-342.90 Inactive Indigo Yokum side of body GENERAL SERVICE OFFICER Bronchitis ICD-490 Inactive Indigo Yokum GENERAL SERVICE OFFICER Knee pain, right ICD-719.46 Inactive Indigo Yokum GENERAL SERVICE OFFICER Jesi intertrigo ICD-112.3 Inactive Indigo [facility]um GENERAL SERVICE OFFICER Incontinence, ICD-788.33 Inactive Indigo [facility]um 2016 mixed, urge/stress GENERAL SERVICE OFFICER Vaginal odor ICD-623.8 Inactive Indigo Yokum 09/20 GENERAL SERVICE OFFICER Urinary tract ICD-599.0 Inactive Indigo Yokum 09/20 infection GENERAL SERVICE OFFICER Urine odor ICD-791.9 Inactive Indigo Yokum GENERAL SERVICE OFFICER Unspecified Inactive Indigo Yokum dyspareunia GENERAL SERVICE OFFICER Depression Inactive Indigo Y[facility]um GENERAL SERVICE OFFICER Medication List Medication Instructions Start Stop Generic NDC Status Provider Patient Date Date Name Instruction ALPRAZOLAM 3 one p.o. ALPRAZOLAM 44968208700 Active Indigo Active MG [id number] q.h.s. Y[facility]um GENERAL SERVICE OFFICER ABILIFY 10 MG Take one ARIPIPRAZOLE 34364515573 Active Indigo Active ORAL TABS tablet [facility] daily for GENERAL SERVICE OFFICER depression CELEBREX 200 1 tablet 2 CELECOXIB 24957226924 No Indigo Active MG CAPS by mouth 0 Longer Yokum daily with 1 Active GENERAL SERVICE OFFICER meals 7 / 0 4 / 2 4 TROKENDI XR 1 tab by 2 TOPIRAMATE 02562356316 No Indigo Active 100 MG ORAL mouth 0 Longer Yokum [id number] daily 1 Active GENERAL SERVICE OFFICER 7 0 4 VESICARE 10 MG 1 pill by SOLIFENACIN 26898741639 Active J Carlos Enrique Active TABS mouth SUCCINATE [place] daily for MD overactive bladder CIPRO 250 MG 1 tablet 2 CIPROFLOXACIN 56697681089 No Indigo Active TAB by mouth 0 HCL Longer [facility]um twice 1 Active GENERAL SERVICE OFFICER daily 7 METFORMIN HCL 2 tablets 2 METFORMIN HCL 05728128956 No Indigo Active 500 MG TB24 by mouth 0 Longer [place] twice 1 Active GENERAL SERVICE OFFICER daily 2 AMARYL 1 MG 1 tablet 2 GLIMEPIRIDE 42262076574 No Indigo Active ORAL TABS orally 0 Longer [facility] twice 1 Active GENERAL SERVICE OFFICER daily 2 NYSTATIN apply to NYSTATIN 40607905236 Active Indigo Active 208948 UNIT/GM rash TID [facility] CREA PRN GENERAL SERVICE OFFICER METOPROLOL 1 tab po METOPROLOL 74872893804 Active Indigo Active TARTRATE 25 MG bid TARTRATE [facility]um TABS GENERAL SERVICE OFFICER AZITHROMYCIN 2 po qd x 2 AZITHROMYCIN 77664893171 No Jillina Active 250 MG TABS 1 day, 0 Longer [place] then 1 po 1 Active GENERAL SERVICE OFFICER qd x 4 6 days / 0 3 / 2 6 PREDNISONE 20 2 pills 2 PREDNISONE 21043782096 No Jillina Active MG TAB daily x 4 0 Longer [place] days 1 Active GENERAL SERVICE OFFICER 6 / 0 3 / 2 5 PIOGLITAZONE take one a PIOGLITAZONE 20269666188 Active Maliheh Active HCL 30 MG ORAL day HCL Ziglari TABS 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 JANUVIA 100 MG 1 tablet 2 SITAGLIPTIN 53821108816 No Indigo Active TABS by mouth 0 PHOSPHATE Longer Yokum daily 1 Active GENERAL SERVICE OFFICER 6 / 0 2 / 1 6 ATORVASTATIN 1 pill by ATORVASTATIN 07163393885 Active Indigo Active CALCIUM 10 MG mouth CALCIUM [facility] TABS nightly, GENERAL SERVICE OFFICER for cholestero l ASPIRIN 81 MG 1 po qd ASPIRIN 54861094342 Active Indigo Active ORAL TABS [facility] GENERAL SERVICE OFFICER NITROFURANTOIN One 2 NITROFURANTOIN 45744859601 No Indigo Active MONOHYD MACRO capsule 0 MONOHYD MACRO Longer Yokum 100 MG CAPS BID for 1 Active GENERAL SERVICE OFFICER UTI 6 / 0 2 / 1 3 TRAMADOL HCL 1/2 po tid 2 TRAMADOL HCL 09495825685 No Jillina Active 50 MG TABS with ES 0 Longer [place] Tylenol 1 Active GENERAL SERVICE OFFICER prn pain 5 / 0 8 2 VYVANSE 20 MG 1 tablet 2 LISDEXAMFETAMI 79558954022 No Jillina Active ORAL CAPS daily for 0 NE DIMESYLATE Longer [place] binge 1 Active GENERAL SERVICE OFFICER eating 5 disorder / 0 2 LASIX 20 MG 2 tablet FUROSEMIDE 24114284988 Active Indigo Active TAB by mouth Yokum daily GENERAL SERVICE OFFICER PREDNISONE 20 2 tablets 2 PREDNISONE 40954077458 No Joseph W Active MG TAB today, 0 Longer Farooq DO then 1 1 Active tablet 5 days 2-4 / 0 4 3 DIFLUCAN 100 1 tablet 2 FLUCONAZOLE 91992408506 No Joseph W Active MG TAB by mouth 0 Longer Farooq DO daily x 3 1 Active days 5 / 0 4 / 3 DIFLUCAN 100 1 tablet 2 FLUCONAZOLE 01902933703 No Joseph W Active MG TABS by mouth 0 Longer Farooq DO every 1 Active other day 5 for 2 / doses 0 1 / 2 3 ZOFRAN 4 MG 1 po q6hr ONDANSETRON 35355299287 Active Joseph W Active TABS PRN Nausea HCL Farooq DO PREDNISONE 20 2 tabs 2 PREDNISONE 23823448481 No Joseph W Active MG TAB daily for 0 Longer Farooq DO 3 days, 1 1 Active tab daily 4 for 3 / days, 1/2 1 tab daily 0 for 2 days / 2 5 AMOXICILLIN 2 po BID x 2 AMOXICILLIN 79016884366 No Maite C Active 500 MG CAPS 10 days 0 Longer Madril 1 Active MD PhD 4 / 1 0 / 2 0 LISINOPRIL 20 1 tablet 2 LISINOPRIL 38040226170 No Maite C Active MG TABS by mouth 0 Longer Madril daily 1 Active MD PhD 4 0 / 1 0 POTASSIUM 2 capsule 2 POTASSIUM 38245153214 No Joseph W Active CHLORIDE CR 10 by mouth 0 CHLORIDE Longer Farooq DO MEQ CPCR daily 1 Active 4 / 0 8 / 2 9 SPIRONOLACTONE 1 tablet 2 SPIRONOLACTONE 53155655138 No Joseph W Active 25 MG TAB by mouth 0 Longer Farooq DO daily 1 Active 4 / 0 8 / 2 9 METFORMIN HCL 1 tablet 2 METFORMIN HCL 72260266276 No Joseph W Active 500 MG TABS by mouth 0 Longer Farooq DO twice 1 Active daily 4 / 0 8 / 2 9 AMARYL 1 MG 1 tab 2 GLIMEPIRIDE 56026864204 No Joseph W Active TABS twice 0 Longer Farooq DO daily 1 Active 4 / 0 8 / 2 9 PHENTERMINE 1 po q am 2 PHENTERMINE 82759357190 No Joseph W Active HCL 37.5 MG for wt. 0 HCL Longer Farooq DO TABS loss 1 Active 3 / 1 2 / 2 3 PROMETHAZINE 1 tab by 2 PROMETHAZINE 96632208632 No Joseph W Active HCL 25 MG TABS mouth 0 HCL Longer Farooq DO every 6 1 Active hours as 3 needed / 0 9 / 0 9 CIPROFLOXACIN Take one 2 CIPROFLOXACIN 91389960224 No Joseph W Active HCL 500 MG (1) tablet 0 HCL Longer Farooq DO TABS by mouth 1 Active twice a 3 day / 0 9 / 0 9 ABILIFY 5 MG one p.o. 2 ARIPIPRAZOLE 19740745766 No Joseph W Active TABS q. day 0 Longer Farooq DO 1 Active 3 / 0 9 / 0 9 HYDROCHLOROTHI 2 tabs 2 HYDROCHLOROTHI 64677067277 No Joseph W Active AZIDE 25 MG every 0 AZIDE Longer Farooq DO TABS morning 1 Active 3 / 0 6 / 2 7 ABILIFY 2 MG 1 po q hs 2 ARIPIPRAZOLE 49387543547 No Joseph W Active TABS for major 0 Longer Farooq DO depression 1 Active 3 / 0 5 / 0 7 ADIPEX-P 37.5 1/2 tab po 2 PHENTERMINE 62415889231 No Casey Active MG CAPS q am for 0 HCL Longer weight 1 Active PA loss 3 / 0 5 / 0 1 CIPRO 500 MG 1 tablet 2 CIPROFLOXACIN 44584318001 No Casey Active TAB by mouth 0 HCL Longer [place] twice 1 Active PA daily 3 / 0 5 / 0 1 NECON 1 po daily 2 NORETHINDRONE- 48874666184 No Casey Active () 1-35 0 ETH ESTRADIOL Longer MG-MCG TABS 1 Active PA 3 / 0 5 / 0 1 TRAMADOL HCL 1 po tid 2 TRAMADOL HCL 34085567112 No Casey Active 50 MG TABS with ES 0 Longer Tylenol 1 Active PA 3 / 0 5 / 0 1 FLUCONAZOLE one p.o. 2 FLUCONAZOLE 49870883369 No Casey Active 100 MG TABS q. day 2 0 Longer days 1 Active PA 3 / 0 5 / 0 1 POTASSIUM 1 capsule 2 POTASSIUM 99576183310 No Casey Active CHLORIDE CR 10 by mouth 0 CHLORIDE Longer MEQ CPCR daily 1 Active PA 3 / 0 5 / 0 1 IMIPRAMINE HCL Take 6 IMIPRAMINE HCL 58334996394 Active Indigo Active 50 MG TABS tablets by [facility]um mouth at GENERAL SERVICE OFFICER bedtime DIFLUCAN 100 1 tablet 2 FLUCONAZOLE 87293265954 No Joseph W Active MG TAB by mouth 0 Longer Farooq DO daily 1 Active 2 / 0 2 / 2 4 VERAPAMIL HCL 2 po bid VERAPAMIL HCL 39244463358 Active Indigo Active CR 120 MG TAB Yokum CR GENERAL SERVICE OFFICER PERMETHRIN 5 % apply neck 2 PERMETHRIN 26924139225 No Joseph W Active CREA to toes 0 Longer Farooq DO tonight 1 Active and then 2 rinse off / in 0 morning. 1 repeat at / 7 days 2 0 SEROQUEL XR 50 one p.o. 2 QUETIAPINE 14514895357 No Joseph W Active MG [id number] q. evening 0 FUMARATE Longer Farooq DO 1 Active 2 / 0 1 / 2 0 TRAMADOL HCL 1-2 2 TRAMADOL HCL 87640117602 No Joseph W Active 50 MG TABS tablets 0 Longer Farooq DO every 6-8 1 Active hours as 2 needed for / pain 0 1 / 2 0 ALPRAZOLAM XR Take 1 2 ALPRAZOLAM 84769833423 No Joseph W Active [id number] tablet by 0 [id number] Longer Farooq DO mouth at 1 Active bedtime 1 / 2 9 DIFLUCAN 100 1 tablet 2 FLUCONAZOLE 01367443316 No Joseph W Active MG TAB by mouth 0 Longer Farooq DO daily 1 Active 0 / 0 6 AMBIEN 10 MG 1 tab by ZOLPIDEM 79035415676 Active Indigo Active TAB mouth at TARTRATE Yokum bedtime as GENERAL SERVICE OFFICER needed for sleep DIFLUCAN 100 1 tablet DIFLUCAN 274681 FLUCONAZOLE Inactive MG TAB by mouth 100 MG TAB daily ALPRAZOLAM Take 1 ALPRAZOLAM ALPRAZOLAM Inactive XR [id number] tablet by XR [id number] mouth at [id number] bedtime TRAMADOL HCL 1-2 TRAMADOL 669601 TRAMADOL HCL Inactive 50 MG TABS tablets HCL 50 MG every 6-8 TABS hours as needed for pain SEROQUEL XR one p.o. SEROQUEL XR QUETIAPINE Inactive 50 MG q. 50 MG FUMARATE [id number] evening [id number] PERMETHRIN 5 apply PERMETHRIN 303091 PERMETHRIN Inactive % CREA neck to 5 % CREA toes tonight and then rinse off in morning. repeat at 7 days DIFLUCAN 100 1 tablet DIFLUCAN 749376 FLUCONAZOLE Inactive MG TAB by mouth 100 MG TAB daily POTASSIUM 1 capsule POTASSIUM POTASSIUM Inactive CHLORIDE CR by mouth CHLORIDE CR CHLORIDE 10 MEQ CPCR daily 10 MEQ CPCR FLUCONAZOLE one p.o. FLUCONAZOLE 19760111 FLUCONAZOLE Inactive 100 MG TABS q. day 2 100 MG TABS days TRAMADOL HCL 1 po tid TRAMADOL 376817 TRAMADOL HCL Inactive 50 MG TABS with ES HCL 50 MG Tylenol TABS NECON 35 1 po NECON NORETHINDRONE- Inactive (28) 1-35 daily (28) 1-35 ETH ESTRADIOL MG-MCG TABS MG-MCG TABS CIPRO 500 MG 1 tablet CIPRO 500 750564 CIPROFLOXACIN Inactive TAB by mouth MG TAB HCL twice daily ADIPEX-P 1/2 tab ADIPEX-P 154499 PHENTERMINE Inactive 37.5 MG CAPS po q am 37.5 MG HCL for CAPS weight loss ABILIFY 2 MG 1 po q hs ABILIFY 2 137232 ARIPIPRAZOLE Inactive TABS for major MG TABS depressio n HYDROCHLOROT 2 tabs HYDROCHLORO 122706 HYDROCHLOROTHI Inactive HIAZIDE 25 every THIAZIDE 25 AZIDE MG TABS morning MG TABS ABILIFY 5 MG one p.o. ABILIFY 5 691566 ARIPIPRAZOLE Inactive TABS q. day MG TABS CIPROFLOXACI Take one CIPROFLOXAC 486484 CIPROFLOXACIN Inactive N HCL 500 MG (1) IN HCL 500 HCL TABS tablet by MG TABS mouth twice a day PROMETHAZINE 1 tab by PROMETHAZIN 412255 PROMETHAZINE Inactive HCL 25 MG mouth E HCL 25 MG HCL TABS every 6 TABS hours as needed PHENTERMINE 1 po q am PHENTERMINE 542099 PHENTERMINE Inactive HCL 37.5 MG for wt. HCL 37.5 MG HCL TABS loss TABS AMARYL 1 MG 1 tab AMARYL 1 MG 120556 GLIMEPIRIDE Inactive TABS twice TABS daily METFORMIN 1 tablet METFORMIN 146967 METFORMIN HCL Inactive HCL 500 MG by mouth HCL 500 MG TABS twice TABS daily SPIRONOLACTO 1 tablet SPIRONOLACT 311719 SPIRONOLACTONE Inactive NE 25 MG TAB by mouth ONE 25 MG daily TAB POTASSIUM 2 capsule POTASSIUM POTASSIUM Inactive CHLORIDE CR by mouth CHLORIDE CR CHLORIDE 10 MEQ CPCR daily 10 MEQ CPCR LISINOPRIL 1 tablet LISINOPRIL 933536 LISINOPRIL Inactive 20 MG TABS by mouth 20 MG TABS daily DIFLUCAN 100 1 tablet DIFLUCAN 279844 FLUCONAZOLE Inactive MG TABS by mouth 100 MG TABS every other day for 2 doses DIFLUCAN 100 1 tablet DIFLUCAN 762942 FLUCONAZOLE Inactive MG TAB by mouth 100 MG TAB daily x 3 days PREDNISONE 2 tablets PREDNISONE 054609 PREDNISONE Inactive 20 MG TAB today, 20 MG TAB then 1 tablet days 2-4 VYVANSE 20 1 tablet VYVANSE 20 LISDEXAMFETAMI Inactive MG ORAL CAPS daily for MG ORAL NE DIMESYLATE binge CAPS eating disorder TRAMADOL HCL 1/2 po TRAMADOL 639524 TRAMADOL HCL Inactive 50 MG TABS tid with HCL 50 MG ES TABS Tylenol prn pain JANUVIA 100 1 tablet JANUVIA 100 SITAGLIPTIN Inactive MG TABS by mouth MG TABS PHOSPHATE daily AMARYL 1 MG 1 tablet AMARYL 1 MG 863244 GLIMEPIRIDE Inactive ORAL TABS orally ORAL TABS twice daily METFORMIN 2 tablets METFORMIN METFORMIN HCL Inactive HCL 500 MG by mouth HCL 500 MG TB24 twice TB24 daily TROKENDI XR 1 tab by TROKENDI XR TOPIRAMATE Inactive 100 MG ORAL mouth 100 MG ORAL [id number] daily [id number] CELEBREX 200 1 tablet CELEBREX 934409 CELECOXIB Inactive MG CAPS by mouth 200 MG CAPS daily with meals AMOXICILLIN 2 po BID AMOXICILLIN 148297 AMOXICILLIN Inactive 500 MG CAPS x 10 days 500 MG CAPS PREDNISONE 2 tabs PREDNISONE 072681 PREDNISONE Inactive 20 MG TAB daily for 20 MG TAB 3 days, 1 tab daily for 3 days, 1/2 tab daily for 2 days NITROFURANTO One NITROFURANT 9743991 NITROFURANTOIN Inactive IN MONOHYD capsule OIN MONOHYD MONOHYD MACRO MACRO 100 MG BID for MACRO 100 CAPS UTI MG CAPS PREDNISONE 2 pills PREDNISONE 077646 PREDNISONE Inactive 20 MG TAB daily x 4 20 MG TAB days AZITHROMYCIN 2 po qd x AZITHROMYCI 8808632 AZITHROMYCIN Inactive 250 MG TABS 1 day, N 250 MG then 1 po TABS qd x 4 days CIPRO 250 MG 1 tablet CIPRO 250 391886 CIPROFLOXACIN Inactive TAB by mouth MG TAB [...] Panel - Chemistry sodium, serum 143 mmol/L 755-686 4332/06/05 carbon dioxide, venous blood 30.4 mmol/L 21.0-32.0 [...] 6.0 % 4.3-6.0 cholesterol, serum 176 mg/dL 703-615 1552/06/05 triglyceride, serum, fasting 41 mg/dL 30-200 HDL [...] 152 10^3/MM^3 10*3/mm3 142-424 Lab Report: Chlamydia/GC APTIMA/[id number] - Lab chlamydia DNA probe NOT DETECTED NOT DETECTED Lab Report: Chlamydia/GC APTIMA/[id number] - Microbiology Neisseria gonorrhoeae DNA probe NOT DETECTED NOT DETECTED Lab Report: Lipid Panel - Chemistry cholesterol, serum 157 mg/dL 880-398 8876/08/22 triglyceride, serum, fasting 215 mg/dL 30-200 HDL [...] negative Encounters Code Encounter Date Provider Facility CPT-32647 Level 4 Est. Patient Indigo [facility] - 16:58:20 CDT [place] CPT-00584 Level 3 Est. Patient Yury Benoit MD [facility] 17:20:07 CDT CPT-74657 Level 4 Est. Patient [facility] - 17:02:40 AUDIO/VIDEO TECHNICIAN [place] CPT-53731 Level 4 New Patient Yury Benoit MD [facility] 15:17:12 CDT CPT-48594 Level 3 Est. Patient [facility] - 13:37:46 CDT [place] CPT-89883 Level 4 Est. Patient [facility] - 10:01:06 CDT [place] CPT-61762 Level 3 Est. 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 [facility] GENERAL SERVICE OFFICER CPT-80470 Level 4 Est. 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 Patient [facility] 09:51:54 AUDIO/VIDEO TECHNICIAN CPT-69891 Level 3 Est. Patient [facility] 18:59:38 CDT CPT-07821 Level 3 Est. Patient Joseph Pineda [facility] 14:42:12 CDT -[facility] CPT-48425 Level 3 Est. Patient Joseph Pineda [facility] 22:18:20 CDT -[facility] CPT-68111 Level 3 Est. Patient Joseph Pineda [facility] 16:46:04 CDT -[facility] CPT-45462 Level 3 Est. Patient Joseph Pineda [facility] 15:39:53 CDT -[facility] CPT-08921 Level 3 Est. Patient Maite Sanchez MD [facility] 13:33:34 CDT -[facility] CPT-31950 Level 3 Est. Patient Joseph Edwin [facility] 11:37:08 CDT -[facility] CPT-69672 Level 3 Est. Patient Joseph Edwin [facility] 17:13:29 AUDIO/VIDEO TECHNICIAN -[facility] CPT-87921 Level 3 Est. Patient Joseph Edwin [facility] 18:42:44 CDT CPT-21464 Level 3 Est. Patient [place] [facility] 16:25:39 CDT CPT-30982 Level 3 Est. Patient Casey Brower [facility] 09:52:45 CDT -[facility] CPT-91948 Level 3 Est. Patient [facility] 11:03:29 AUDIO/VIDEO TECHNICIAN -[facility] CPT-27445 Level 3 Est. Patient Joseph Edwin [facility] 11:03:08 AUDIO/VIDEO TECHNICIAN -[facility] CPT-64749 Level 3 Est. Patient Joseph Edwin [facility] 14:33:31 CDT -[facility] CPT-08136 Level 3 Est. Patient Joseph Edwin [facility] 17:05:02 AUDIO/VIDEO TECHNICIAN -[facility] CPT-79902 Level 3 Est. Patient [facility] 17:48:06 AUDIO/VIDEO TECHNICIAN -[facility] CPT-02205 Level 3 Est. Patient [facility] 14:59:22 AUDIO/VIDEO TECHNICIAN -[facility] CPT-15440 Level 3 Est. Patient [facility] - 21:45:56 AUDIO/VIDEO TECHNICIAN [place] [facility] CPT-15135 Level 3 Est. Patient Joseph Trivedi [facility] 21:29:50 CDT -[facility] CPT-40146 Level 3 Est. Patient Joseph Trivedi [facility] 12:41:09 CDT -[facility] Procedures Code Procedure Name Date Entry Date Standard Description CPT-53085 Wet Mount - LAB USE ONLY 12:39:03 AUDIO/VIDEO TECHNICIAN CPT-71513 Vaginal Culture - LAB USE ONLY 12:39:03 AUDIO/VIDEO TECHNICIAN CPT-12892 Urine Culture - LAB USE ONLY 11:52:44 AUDIO/VIDEO TECHNICIAN CPT-26066 UA w micro - LAB USE ONLY 11:52:44 AUDIO/VIDEO TECHNICIAN CPT-07982 Postop F/U Visit 12:08:35 CDT CPT-88560 Postop F/U Visit 18:20:10 CDT CPT-A4351 [facility] Female Cath 09:37:10 CDT CPT-70361 Urine Dip (Floor Use Only) 15:17:13 CDT CPT-66909 Dil F ureth int 15:17:13 CDT CPT-66876 Venipuncture Draw Fee 09:19:08 CDT CPT-06445 Lipid - LAB USE ONLY 09:19:07 CDT CPT-JTINJ Asp/Joint Injection 09:26:49 CDT CPT-05818 Chest 2V Frontal and Lat 14:47:43 CDT CPT-JTINJ Asp/Joint Injection 09:51:53 AUDIO/VIDEO TECHNICIAN CPT-OV Office Visit 17:39:05 CDT CPT-OV Office Visit 15:19:50 CDT CPT-88024 Sono transvag pelvis non OB uterus ovaries cervix 18:04:34 CDT CPT-87624 Venipuncture Draw Fee 08:55:49 AUDIO/VIDEO TECHNICIAN
--- OUTSIDE RECORDS SUMMARY | 2016-11-20 13:45 | External Medical Summary | Clinical Summary ---
:1965 Author Organization [facility] [employer] Address [address] [address] Phone Allergies, Adverse Reactions, Alerts Allergy Name Reaction Description Start Date Severity Status Provider VERSED States jsut about Critical Active Gloria Saavedra INSURANCE VERIFICATION CLERK killed her NKDA Critical Active Indigo Yokum ADVERTISING ASSISTANT NKDA Critical No Longer Indigo Yokum ADVERTISING ASSISTANT Active NKDA Critical Inactive Adrianna Elder [...] 311 Active Indigo Depressive chronic 09/20 [employer]okum ADVERTISING ASSISTANT disorder, not elsewhere classified SCABIES 133.0 Resolved Maite Gutierrez Scabies 06/23 Laura ONEAL PhD HYPERTENSION 401.9 Active Joseph Pineda Unspecified 05/24 Farooq DO essential hypertension FATIGUE 780.79 Resolved Indigo Other malaise 05/24 07/02 Yokum ADVERTISING ASSISTANT and fatigue SLEEP APNEA, 327.23 Active Joseph Pineda Obstructive OBSTRUCTIVE, 06/27 06/27 Farooq DO sleep apnea MILD (adult) (pediatric) OVERWEIGHT 278.02 Inactive Joseph Pineda Overweight 06/28 06/28 Farooq DO Obesity 278.00 Active Indigo Obesity, 06/28 10/18 Yokum ADVERTISING ASSISTANT unspecified OT GENERAL V70.3 Resolved Maite C Other general MEDICAL Laura ONEAL medical EXAMINATION PhD examination for ADMIN administrative PURPOSES purposes OTHER 790.29 Resolved Maite C Other abnormal ABNORMAL 05/20 Laura ONEAL glucose GLUCOSE PhD ACUTE 466.0 Resolved Maite Gutierrez Acute bronchitis BRONCHITIS 09/02 Laura ONEAL PhD DEPENDENT 782.3 Resolved Indigo Edema EDEMA, LEGS, 10/29 10/18 Yokum ADVERTISING ASSISTANT BILATERAL HYPOKALEMIA, 276.8 Resolved Indigo Hypopotassemia MILD 10/29 07/02 Yo ADVERTISING ASSISTANT Diabetes, 250.00 Inactive Joseph Pineda Diabetes Type 2 06/27 06/27 Farooq DO mellitus without mention of complication, type II or unspecified type, not stated as uncontrolled Diabetes 250.02 Resolved Indigo Diabetes mellitus, 06/27 10/18 Yokum ADVERTISING ASSISTANT mellitus without type II, mention of uncontrolled [...] Resolved Indigo Routine gynecological 12/14 07/02 Yo ADVERTISING ASSISTANT gynecological examination examination Postmenopausa 627.1 Resolved Indigo Postmenopausal l bleeding 12/14 07/02 Yokum ADVERTISING ASSISTANT bleeding Screening for V76.51 Resolved Indigo Screening for malignant 12/26 07/02 Yokum ADVERTISING ASSISTANT malignant neoplasms of neoplasms of colon colon Insomnia, 307.42 Active 2015/0 Indigo 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 ADVERTISING ASSISTANT disorder of initiating or maintaining sleep Establish V68.89 Resolved Indigo Encounters for care or get 01/16 07/02 Yokum ADVERTISING ASSISTANT other specified acquainted administrative visit purpose Weakness, 342.90 Resolved Indigo Hemiplegia, left side of 06/20 10/18 Yokum ADVERTISING ASSISTANT unspecified, body affecting unspecified side TIA 435.9 Active Indigo Unspecified 06/20 07/02 Yokum ADVERTISING ASSISTANT transient cerebral ischemia Knee pain, 719.46 Active Indigo Pain in joint bilateral 06/20 10/18 Yokum ADVERTISING ASSISTANT involving lower leg Bronchitis 490 Resolved Indigo Bronchitis, not 07/23 10/18 Yokum ADVERTISING ASSISTANT specified as acute or chronic Diabetes 357.2 Active Maliheh Polyneuropathy mellitus, 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 APPLICATIONS PACKAGER 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 y Knee pain, 719.46 Resolved Indigo Pain in joint right 06/20 09/20 Yokum ADVERTISING ASSISTANT involving lower leg Jesi 112.3 Resolved Indigo Candidiasis of intertrigo 10/09 09/20 Yokum ADVERTISING ASSISTANT skin and nails Hyperlipidemi 272.4 Active Anne Other and a 12/24 12/24 Neil unspecified RMA hyperlipidemia Incontinence, 788.33 Resolved Indigo Mixed mixed, 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 ADVERTISING ASSISTANT incontinence urge/stress (female) (male) Female stress 625.6 Active Yury Monaco Stress incontinence 01/03 01/03 Cy patel MD female Vaginal odor 623.8 Resolved Idnigo Other specified 05/28 09/20 Yokum ADVERTISING ASSISTANT noninflammatory disorders of vagina Urinary tract 599.0 Resolved Indigo Urinary tract infection 05/28 09/20 Yokum ADVERTISING ASSISTANT infection, site not specified Urine odor 791.9 Resolved Indigo Other 05/28 09/20 Yokum ADVERTISING ASSISTANT nonspecific findings on examination of urine Unspecified Resolved Indigo dyspareunia 08/19 09/20 Yokum ADVERTISING ASSISTANT Depression Resolved Indigo 09/20 Yokum ADVERTISING ASSISTANT Anxiety Active Indigo Anxiety state, Disorder 08/26 ADVERTISING ASSISTANT unspecified ABNORMAL VAGINAL ICD-626.9 Inactive Maite C Laura BLEEDING PhD SCABIES ICD-133.0 Inactive Maite C Laura PhD FATIGUE ICD-780.79 Inactive Indigo Yokum ADVERTISING ASSISTANT OTH GENERAL ICD-V70.3 Inactive Maite C Laura MEDICAL MD PhD EXAMINATION ADMIN PURPOSES OTHER ABNORMAL ICD-790.29 Inactive Maite C Ronyril GLUCOSE PhD ACUTE BRONCHITIS ICD-466.0 Inactive Maite C Laura PhD DEPENDENT EDEMA, ICD-782.3 Inactive Indigo Yokum LEGS, BILATERAL ADVERTISING ASSISTANT HYPOKALEMIA, MILD ICD-276.8 Inactive Indigo Yokum ADVERTISING ASSISTANT Diabetes mellitus, ICD-250.02 Inactive Indigo Yokum type II, ADVERTISING ASSISTANT uncontrolled Sinusitis, ICD-461.1 Inactive Ismael Coyne frontal, acute Amandeep ONEAL Laryngitis, acute ICD-464.00 Inactive Ismael Coyne Amandeep ONEAL Routine ICD-V72.31 Inactive Indigo Yokum gynecological ADVERTISING ASSISTANT examination Postmenopausal ICD-627.1 Inactive Indigo Yokum 2015 bleeding ADVERTISING ASSISTANT Screening for ICD-V76.51 Inactive Indigo Yokum 2015 malignant ADVERTISING ASSISTANT neoplasms of colon Establish care or ICD-V68.89 Inactive Indigo Yokum get acquainted ADVERTISING ASSISTANT visit Weakness, left ICD-342.90 Inactive Indigo Yokum side of body ADVERTISING ASSISTANT Bronchitis ICD-490 Inactive Indigo Yokum ADVERTISING ASSISTANT Knee pain, right ICD-719.46 Inactive Indigo Yokum ADVERTISING ASSISTANT Jesi intertrigo ICD-112.3 Inactive Indigo Yokum ADVERTISING ASSISTANT Incontinence, ICD-788.33 Inactive Indigo Yokum 2016 mixed, urge/stress ADVERTISING ASSISTANT Vaginal odor ICD-623.8 Inactive Indigo Yokum 09/20 ADVERTISING ASSISTANT Urinary tract ICD-599.0 Inactive Indigo Yokum 09/20 infection ADVERTISING ASSISTANT Urine odor ICD-791.9 Inactive Indigo Yokum ADVERTISING ASSISTANT Unspecified Inactive Indigo Yokum dyspareunia ADVERTISING ASSISTANT Depression Inactive Indigo Yokum ADVERTISING ASSISTANT Medication List Medication Instructions Start Stop Generic NDC Status Provider Patient Date Date Name Instruction ALPRAZOLAM 3 one p.o. ALPRAZOLAM 45437623868 Active Indigo Active MG [id number] q.h.s. Yokum ADVERTISING ASSISTANT ABILIFY 10 MG Take one ARIPIPRAZOLE 22953205921 Active Indigo Active ORAL TABS tablet Yokum daily for ADVERTISING ASSISTANT depression CELEBREX 200 1 tablet 2 CELECOXIB 89721541747 No Indigo Active MG CAPS by mouth 0 Longer Yokum daily with 1 Active ADVERTISING ASSISTANT meals 7 / 0 4 / 2 4 TROKENDI XR 1 tab by 2 TOPIRAMATE 20037322063 No Indigo Active 100 MG ORAL mouth 0 Longer Yokum [id number] daily 1 Active ADVERTISING ASSISTANT 7 0 4 VESICARE 10 MG 1 pill by SOLIFENACIN 59792430952 Active J Carlos Enrique Active TABS mouth SUCCINATE [place] daily for MD overactive bladder CIPRO 250 MG 1 tablet 2 CIPROFLOXACIN 03252907878 No Indigo Active TAB by mouth 0 HCL Longer Yokum twice 1 Active ADVERTISING ASSISTANT daily 7 METFORMIN HCL 2 tablets 2 METFORMIN HCL 01351851779 No Indigo Active 500 MG TB24 by mouth 0 Longer Yokum twice 1 Active ADVERTISING ASSISTANT daily 2 AMARYL 1 MG 1 tablet 2 GLIMEPIRIDE 83896983342 No Indigo Active ORAL TABS orally 0 Longer Yokum twice 1 Active ADVERTISING ASSISTANT daily 2 NYSTATIN apply to NYSTATIN 23100210245 Active Indigo Active 156366 UNIT/GM rash TID Yokum CREA PRN ADVERTISING ASSISTANT METOPROLOL 1 tab po METOPROLOL 33712786295 Active Indigo Active TARTRATE 25 MG bid TARTRATE Yokum TABS ADVERTISING ASSISTANT AZITHROMYCIN 2 po qd x 2 AZITHROMYCIN 96786309027 No Jillina Active 250 MG TABS 1 day, 0 Longer Frazell then 1 po 1 Active ADVERTISING ASSISTANT qd x 4 6 days / 0 3 / 2 6 PREDNISONE 20 2 pills 2 PREDNISONE 92217079362 No Jillina Active MG TAB daily x 4 0 Longer Frazell days 1 Active ADVERTISING ASSISTANT 6 / 0 3 / 2 5 PIOGLITAZONE take one a PIOGLITAZONE 15978884072 Active Maliheh Active HCL 30 MG ORAL day HCL Ziglari TABS APPLICATIONS PACKAGER JANUVIA 100 MG 1 tablet 2 SITAGLIPTIN 49245545352 No Indigo Active TABS by mouth 0 PHOSPHATE Longer Yokum daily 1 Active ADVERTISING ASSISTANT 6 / 0 2 / 1 6 ATORVASTATIN 1 pill by ATORVASTATIN 78694916410 Active Hannah Active CALCIUM 10 MG mouth CALCIUM Nael TABS nightly, ADVERTISING ASSISTANT for cholestero l ASPIRIN 81 MG 1 po qd ASPIRIN 36876905813 Active Indigo Active ORAL TABS Yokum ADVERTISING ASSISTANT NITROFURANTOIN One 2 NITROFURANTOIN 53451156181 No Indigo Active MONOHYD MACRO capsule 0 MONOHYD MACRO Longer Yokum 100 MG CAPS BID for 1 Active ADVERTISING ASSISTANT UTI 6 / 0 2 / 1 3 TRAMADOL HCL 1/2 po tid 2 TRAMADOL HCL 30542980249 No Jillina Active 50 MG TABS with ES 0 Longer Frazell Tylenol 1 Active ADVERTISING ASSISTANT prn pain 5 / 0 2 VYVANSE 20 MG 1 tablet 2 LISDEXAMFETAMI 47017129183 No Jillina Active ORAL CAPS daily for 0 NE DIMESYLATE Longer [place]ell binge 1 Active ADVERTISING ASSISTANT eating 5 disorder / 0 2 LASIX 20 MG 2 tablet FUROSEMIDE 31578564876 Active Ranulfo Villalpando Active TAB by mouth [place] daily PREDNISONE 20 2 tablets 2 PREDNISONE 87587507353 No Joseph W Active MG TAB today, 0 Longer Farooq DO then 1 1 Active tablet 5 days 2-4 / 0 3 DIFLUCAN 100 1 tablet 2 FLUCONAZOLE 34242685257 No Joseph W Active MG TAB by mouth 0 Longer Farooq DO daily x 3 1 Active days 5 / 0 1 3 DIFLUCAN 100 1 tablet 2 FLUCONAZOLE 94193780891 No Joseph W Active MG TABS by mouth 0 Longer Farooq DO every 1 Active other day 5 for 2 / doses 0 1 / 2 3 ZOFRAN 4 MG 1 po q6hr ONDANSETRON 73616269671 Active Joseph W Active TABS PRN Nausea HCL Farooq DO PREDNISONE 20 2 tabs 2 PREDNISONE 44235531109 No Joseph W Active MG TAB daily for 0 Longer Farooq DO 3 days, 1 1 Active tab daily 4 for 3 / days, 1/2 1 tab daily 0 for 2 days / 2 5 AMOXICILLIN 2 po BID x 2 AMOXICILLIN 57510660038 No Maite C Active 500 MG CAPS 10 days 0 Longer Madril 1 Active PhD 4 / 1 0 / 2 0 LISINOPRIL 20 1 tablet 2 LISINOPRIL 47583141249 No Maite C Active MG TABS by mouth 0 Longer Madril daily 1 Active PhD 4 / 0 / 1 0 POTASSIUM 2 capsule 2 POTASSIUM 35916303174 No Joseph W Active CHLORIDE CR 10 by mouth 0 CHLORIDE Longer Farooq DO MEQ CPCR daily 1 Active 4 / 0 8 / 2 9 SPIRONOLACTONE 1 tablet 2 SPIRONOLACTONE 89291113046 No Joseph W Active 25 MG TAB by mouth 0 Longer Farooq DO daily 1 Active 4 / 0 8 / 2 9 METFORMIN HCL 1 tablet 2 METFORMIN HCL 71846035496 No Joseph W Active 500 MG TABS by mouth 0 Longer Farooq DO twice 1 Active daily 4 / 0 8 / 2 9 AMARYL 1 MG 1 tab 2 GLIMEPIRIDE 71261383706 No Joseph W Active TABS twice 0 Longer Farooq DO daily 1 Active 4 / 0 8 / 2 9 PHENTERMINE 1 po q am 2 PHENTERMINE 53648346277 No Joseph W Active HCL 37.5 MG for wt. 0 HCL Longer Farooq DO TABS loss 1 Active 3 / 1 2 / 2 3 PROMETHAZINE 1 tab by 2 PROMETHAZINE 72295493146 No Joseph W Active HCL 25 MG TABS mouth 0 HCL Longer Farooq DO every 6 1 Active hours as 3 needed / 0 9 / 0 9 CIPROFLOXACIN Take one 2 CIPROFLOXACIN 75465438322 No Joseph W Active HCL 500 MG (1) tablet 0 HCL Longer Farooq DO TABS by mouth 1 Active twice a 3 day / 0 9 / 0 9 ABILIFY 5 MG one p.o. 2 ARIPIPRAZOLE 31848466658 No Joseph W Active TABS q. day 0 Longer Farooq DO 1 Active 3 / 0 9 / 0 9 HYDROCHLOROTHI 2 tabs 2 HYDROCHLOROTHI 18362913001 No Joseph W Active AZIDE 25 MG every 0 AZIDE Longer Farooq DO TABS morning 1 Active 3 / 0 6 / 2 7 ABILIFY 2 MG 1 po q hs 2 ARIPIPRAZOLE 39561879395 No Joseph W Active TABS for major 0 Longer Farooq DO depression 1 Active 3 / 0 5 / 0 7 ADIPEX-P 37.5 1/2 tab po 2 PHENTERMINE 10103089254 No Casey Active MG CAPS q am for 0 HCL Longer weight 1 Active PA loss 3 / 0 5 / 0 1 CIPRO 500 MG 1 tablet 2 CIPROFLOXACIN 30741479845 No Casey Active TAB by mouth 0 HCL Longer Leonarda twice 1 Active PA daily 3 / 0 5 / 0 1 NECON 1 po daily 2 NORETHINDRONE- 96057402010 No Casey Active () 1-35 0 ETH ESTRADIOL Longer MG-MCG TABS 1 Active PA 3 / 0 5 / 0 1 TRAMADOL HCL 1 po tid 2 TRAMADOL HCL 51561132793 No Casey Active 50 MG TABS with ES 0 Longer Tylenol 1 Active PA 3 / 0 5 / 0 1 FLUCONAZOLE one p.o. 2 FLUCONAZOLE 90750146100 No Casey Active 100 MG TABS q. day 2 0 Longer days 1 Active PA 3 / 0 5 / 0 1 POTASSIUM 1 capsule 2 POTASSIUM 94355239386 No Casey Active CHLORIDE CR 10 by mouth 0 CHLORIDE Longer MEQ CPCR daily 1 Active PA 3 / 0 5 / 0 1 IMIPRAMINE HCL Take 6 IMIPRAMINE HCL 44517347802 Active Indigo Active 50 MG TABS tablets by Yokum mouth at ADVERTISING ASSISTANT bedtime DIFLUCAN 100 1 tablet 2 FLUCONAZOLE 98241214583 No Joseph W Active MG TAB by mouth 0 Longer Farooq DO daily 1 Active 2 / 0 2 / 2 4 VERAPAMIL HCL 2 po bid VERAPAMIL HCL 65573565686 Active Indigo Active CR 120 MG TAB Yokum CR ADVERTISING ASSISTANT PERMETHRIN 5 % apply neck 2 PERMETHRIN 04186357472 No Joseph W Active CREA to toes 0 Longer Farooq DO tonight 1 Active and then 2 rinse off / in 0 morning. 1 repeat at / 7 days 2 0 SEROQUEL XR 50 one p.o. 2 QUETIAPINE 20298525555 No Joseph W Active MG [id number] q. evening 0 FUMARATE Longer Farooq DO 1 Active 2 / 0 1 / 2 0 TRAMADOL HCL 1-2 2 TRAMADOL HCL 29639409726 No Joseph W Active 50 MG TABS tablets 0 Longer Farooq DO every 6-8 1 Active hours as 2 needed for / pain 0 1 / 2 0 ALPRAZOLAM XR Take 1 2 ALPRAZOLAM 36397209767 No Joseph W Active [id number] tablet by 0 [id number] Longer Farooq DO mouth at 1 Active bedtime 1 / 2 9 DIFLUCAN 100 1 tablet 2 FLUCONAZOLE 09267130158 No Joseph W Active MG TAB by mouth 0 Longer Farooq DO daily 1 Active 0 / 0 6 AMBIEN 10 MG 1 tab by ZOLPIDEM 05768272094 Active Indigo Active TAB mouth at TARTRATE Yokum bedtime as ADVERTISING ASSISTANT needed for sleep DIFLUCAN 100 1 tablet DIFLUCAN 106881 FLUCONAZOLE Inactive MG TAB by mouth 100 MG TAB daily ALPRAZOLAM Take 1 ALPRAZOLAM ALPRAZOLAM Inactive XR [id number] tablet by XR [id number] mouth at MS41C-HPO bedtime TRAMADOL HCL 1-2 TRAMADOL 574631 TRAMADOL HCL Inactive 50 MG TABS tablets HCL 50 MG every 6-8 TABS hours as needed for pain SEROQUEL XR one p.o. SEROQUEL XR QUETIAPINE Inactive 50 MG q. 50 MG FUMARATE [id number]-GSS evening [id number] PERMETHRIN 5 apply PERMETHRIN 720548 PERMETHRIN Inactive % CREA neck to 5 [...] days TRAMADOL HCL 1 po tid TRAMADOL 817675 TRAMADOL HCL Inactive 50 MG TABS with ES HCL 50 MG Tylenol TABS NECON 35 1 po NECON NORETHINDRONE- Inactive (28) 1-35 daily (28) 1-35 ETH ESTRADIOL MG-MCG TABS MG-MCG TABS CIPRO 500 MG 1 tablet CIPRO 500 257411 CIPROFLOXACIN Inactive TAB by mouth MG TAB HCL twice daily ADIPEX-P 1/2 tab ADIPEX-P 713463 PHENTERMINE Inactive 37.5 MG CAPS po q am 37.5 MG HCL for CAPS weight loss ABILIFY 2 MG 1 po q hs ABILIFY 2 684466 ARIPIPRAZOLE Inactive TABS for major MG TABS depressio n HYDROCHLOROT 2 tabs HYDROCHLORO 378999 HYDROCHLOROTHI Inactive HIAZIDE 25 every THIAZIDE 25 AZIDE MG TABS morning MG TABS ABILIFY 5 MG one p.o. ABILIFY 5 253202 ARIPIPRAZOLE Inactive TABS q. day MG TABS CIPROFLOXACI Take one CIPROFLOXAC 389365 CIPROFLOXACIN Inactive N HCL 500 MG (1) IN HCL 500 HCL TABS tablet by MG TABS mouth twice a day PROMETHAZINE 1 tab by PROMETHAZIN 295096 PROMETHAZINE Inactive HCL 25 MG mouth E HCL 25 MG HCL TABS every 6 TABS hours as needed PHENTERMINE 1 po q am PHENTERMINE 376989 PHENTERMINE Inactive HCL 37.5 MG for wt. HCL 37.5 MG HCL TABS loss TABS AMARYL 1 MG 1 tab AMARYL 1 MG 718814 GLIMEPIRIDE Inactive TABS twice TABS daily METFORMIN 1 tablet METFORMIN 303228 METFORMIN HCL Inactive HCL 500 MG by mouth HCL 500 MG TABS twice TABS daily SPIRONOLACTO 1 tablet SPIRONOLACT 444701 SPIRONOLACTONE Inactive NE 25 MG TAB by mouth ONE 25 MG daily TAB POTASSIUM 2 capsule POTASSIUM POTASSIUM Inactive CHLORIDE CR by mouth CHLORIDE CR CHLORIDE 10 MEQ CPCR daily 10 MEQ CPCR LISINOPRIL 1 tablet LISINOPRIL 836380 LISINOPRIL Inactive 20 MG TABS by mouth 20 MG TABS daily DIFLUCAN 100 1 tablet DIFLUCAN 370327 FLUCONAZOLE Inactive MG TABS by mouth 100 MG TABS every other day for 2 doses DIFLUCAN 100 1 tablet DIFLUCAN 263694 FLUCONAZOLE Inactive MG TAB by mouth 100 MG TAB daily x 3 days PREDNISONE 2 tablets PREDNISONE 098626 PREDNISONE Inactive 20 MG TAB today, 20 MG TAB then 1 tablet days 2-4 VYVANSE 20 1 tablet VYVANSE 20 LISDEXAMFETAMI Inactive MG ORAL CAPS daily for MG ORAL NE DIMESYLATE binge CAPS eating disorder TRAMADOL HCL 1/2 po TRAMADOL 972376 TRAMADOL HCL Inactive 50 MG TABS tid with HCL 50 MG ES TABS Tylenol prn pain JANUVIA 100 1 tablet JANUVIA 100 SITAGLIPTIN Inactive MG TABS by mouth MG TABS PHOSPHATE daily AMARYL 1 MG 1 tablet AMARYL 1 MG 457764 GLIMEPIRIDE Inactive ORAL TABS orally ORAL TABS twice daily METFORMIN 2 tablets METFORMIN METFORMIN HCL Inactive HCL 500 MG by mouth HCL 500 MG TB24 twice TB24 daily TROKENDI XR 1 tab by TROKENDI XR TOPIRAMATE Inactive 100 MG ORAL mouth 100 MG ORAL [id number]-JFJ daily QW72U-NZE CELEBREX 200 1 tablet CELEBREX 437410 CELECOXIB Inactive MG CAPS by mouth 200 MG CAPS daily with meals AMOXICILLIN 2 po BID AMOXICILLIN 657155 AMOXICILLIN Inactive 500 MG CAPS x 10 days 500 MG CAPS PREDNISONE 2 tabs PREDNISONE 231856 PREDNISONE Inactive 20 MG TAB daily for 20 MG TAB 3 days, 1 tab daily for 3 days, 1/2 tab daily for 2 days NITROFURANTO One NITROFURANT 2084914 NITROFURANTOIN Inactive IN MONOHYD capsule OIN MONOHYD MONOHYD MACRO MACRO 100 MG BID for MACRO 100 CAPS UTI MG CAPS PREDNISONE 2 pills PREDNISONE 298683 PREDNISONE Inactive 20 MG TAB daily x 4 20 MG TAB days AZITHROMYCIN 2 po qd x AZITHROMYCI 4563070 AZITHROMYCIN Inactive 250 MG TABS 1 day, N 250 MG then 1 po TABS qd x 4 days CIPRO 250 MG 1 tablet CIPRO 250 026300 CIPROFLOXACIN Inactive TAB by mouth MG TAB [...] HGBA1C - Chemistry sodium, serum 140 mmol/L 143-996 3893/06/03 potassium, serum 3.9 mmol/L 3.5-5.2 chloride, serum 105 mmol/L 98-107 carbon dioxide, venous blood 29.4 mmol/L 21.0-32.0 blood glucose 124 mg/dL 65-110 calcium, serum 8.9 mg/dL 8.5-10.1 urea nitrogen, blood 14 mg/dL 7-18 creatinine, serum 0.88 mg/dL 0.55-1.30 hemoglobin A1C, blood, as % of total hemoglobin 5.7 % 4.3-6.0 Lab Report: Chlamydia/GC APTIMA/[id number] - Lab chlamydia DNA probe NOT DETECTED NOT DETECTED Lab Report: Chlamydia/GC APTIMA/[id number] - Microbiology Neisseria gonorrhoeae DNA probe NOT DETECTED NOT DETECTED Lab Report: Lipid Panel - Chemistry cholesterol, serum 157 mg/dL 459-983 4009/08/22 triglyceride, serum, fasting 215 mg/dL 30-200 HDL [...] mg/dL Encounters Code Encounter Date Provider Facility CPT-72212 Level 4 Est. Patient Indigo Carlie [facility] - 16:58:20 CDT [place] CPT-71299 Level 3 Est. Patient Yury Benoit MD [facility] 17:20:07 CDT CPT-86317 Level 4 Est. Patient Indigomikayla Sexton ADVERTISING ASSISTANT [facility] - 17:02:40 FILM FLAT INSPECTOR [place] CPT-96234 Level 4 New Patient Yury Benoit MD [facility] 15:17:12 CDT CPT-20738 Level 3 Est. [facility] [place] CPT-57029 Level 4 Est. [facility] [place] CPT-07402 Level 3 Est. Patient [facility] 08:58:07 CDT APPLICATIONS PACKAGER CPT-29189 Level 3 Est. Patient Faby Marino [facility] 14:40:56 CDT ADVERTISING ASSISTANT CPT-58473 Level 4 Est. Patient [facility] 17:29:53 FILM FLAT INSPECTOR APPLICATIONS PACKAGER CPT-92654 Level 4 Est. Patient [facility] 09:51:54 FILM FLAT INSPECTOR CPT-25427 Level 3 Est. Patient [facility] 18:59:38 CDT CPT-19088 Level 3 Est. Patient Joseph Pineda [facility] 14:42:12 CDT -[facility] CPT-87099 Level 3 Est. Patient Joseph Pineda [facility] 22:18:20 CDT -[facility] CPT-14876 Level 3 Est. Patient Joseph Pineda [facility] 16:46:04 CDT -RHC CPT-53098 Level 3 Est. Patient Joseph Pineda [facility] 15:39:53 CDT -RHC CPT-51367 Level 3 Est. Patient Maite Sanchez MD PhD [facility] 13:33:34 CDT -RHC CPT-41840 Level 3 Est. Patient Joseph Pineda [facility] 11:37:08 CDT -RHC CPT-13220 Level 3 Est. Patient Joseph Pineda [facility] 17:13:29 FILM FLAT INSPECTOR -RHC CPT-41030 Level 3 Est. Patient Joseph Trivedi [facility] 18:42:44 CDT CPT-20289 Level 3 Est. Patient Joseph Trivedi [facility] 16:25:39 CDT CPT-72374 Level 3 Est. Patient [facility] 09:52:45 CDT -RHC CPT-69832 Level 3 Est. Patient Joseph Trivedi [facility] 11:03:29 FILM FLAT INSPECTOR -RHC CPT-09034 Level 3 Est. Patient Joseph Pineda [facility] 11:03:08 FILM FLAT INSPECTOR -RHC CPT-73758 Level 3 Est. Patient Joseph Pineda [facility] 14:33:31 CDT -RHC CPT-00756 Level 3 Est. Patient Joseph Pineda [facility] 17:05:02 FILM FLAT INSPECTOR -RHC CPT-07734 Level 3 Est. Patient Joseph Pineda [facility] 17:48:06 FILM FLAT INSPECTOR -RHC CPT-23854 Level 3 Est. Patient Joseph Pineda [facility] 14:59:22 FILM FLAT INSPECTOR -RHC CPT-17598 Level 3 Est. Patient Joseph Pineda [facility] - 21:45:56 FILM FLAT INSPECTOR [place] [facility] CPT-30794 Level 3 Est. Patient Joseph Pineda [facility] 21:29:50 CDT -RHC CPT-52081 Level 3 Est. Patient Joseph Pineda [facility] 12:41:09 CDT -RHC Procedures Code Procedure Name Date Entry Date Standard Description CPT-42583 Wet Mount - LAB USE ONLY 12:39:03 FILM FLAT INSPECTOR CPT-48632 Vaginal Culture - LAB USE ONLY 12:39:03 FILM FLAT INSPECTOR CPT-80166 Urine Culture - LAB USE ONLY 11:52:44 FILM FLAT INSPECTOR CPT-66857 UA w micro - LAB USE ONLY 11:52:44 FILM FLAT INSPECTOR CPT-27773 Postop F/U Visit 12:08:35 CDT CPT-14325 Postop F/U Visit 18:20:10 CDT CPT-A4351 [facility] Female Cath 09:37:10 CDT CPT-85601 Urine Dip (Floor Use Only) 15:17:13 CDT CPT-18501 Dil F ureth int 15:17:13 CDT CPT-45828 Venipuncture Draw Fee 09:19:08 CDT CPT-33485 Lipid - LAB USE ONLY 09:19:07 CDT CPT-JTINJ Asp/Joint Injection 09:26:49 CDT CPT-85236 Chest 2V Frontal and Lat 14:47:43 CDT CPT-JTINJ Asp/Joint Injection 09:51:53 FILM FLAT INSPECTOR CPT-OV Office Visit 17:39:05 CDT CPT-OV Office Visit 15:19:50 CDT CPT-92040 Sono transvag pelvis non OB uterus ovaries cervix 18:04:34 CDT CPT-38349 Venipuncture Draw Fee 08:55:49 FILM FLAT INSPECTOR
--- OUTSIDE RECORDS SUMMARY | 2016-11-20 13:46 | External Medical Summary | Clinical Summary ---
:1965 Author Organization [facility] [employer] Address [address] [address] Phone Allergies, Adverse Reactions, Alerts Allergy Name Reaction Description Start Date Severity Status Provider NKDA Critical Active Indigo Yonickieum [place] NKDA Critical No Longer Indigo Yokum [place] Active NKDA Critical Inactive Adrianna Elder Conditions [...] Resolved Indigo Other malaise 05/24 07/02 Yokum [place] and fatigue SLEEP APNEA, 327.23 Active Joseph Pineda Obstructive OBSTRUCTIVE, 06/27 06/27 Farooq DO sleep apnea MILD (adult) (pediatric) OVERWEIGHT 278.02 Inactive Joseph Pineda Overweight 06/28 06/28 Farooq DO Obesity 278.00 Active Indigo Obesity, 06/28 10/18 Yokum [place] unspecified OTH GENERAL V70.3 Resolved Maite Gutierrez Other general MEDICAL Laura ONEAL medical EXAMINATION PhD examination for ADMIN PURPOSES administrative purposes OTHER ABNORMAL 790.29 Resolved Maite C Other abnormal GLUCOSE 05/20 Laura ONEAL glucose PhD ACUTE 466.0 Resolved Maite C Acute BRONCHITIS 09/02 Laura ONEAL bronchitis PhD DEPENDENT 782.3 Resolved Indigo Edema EDEMA, LEGS, 10/29 10/18 Yokum [place] BILATERAL HYPOKALEMIA, 276.8 Resolved Indigo Hypopotassemia MILD 10/29 07/02 Youm [place] Diabetes, Type 250.00 Inactive Joseph Pineda Diabetes 2 06/27 06/27 Farooq DO mellitus without mention of complication, type II or unspecified type, not stated as uncontrolled Diabetes 250.02 Resolved Indigo Diabetes mellitus, type 06/27 [place] mellitus II, without mention uncontrolled of complication, [...] Resolved Indigo Routine gynecological 12/14 07/02 Yo [place] gynecological examination examination Postmenopausal 627.1 Resolved Indigo Postmenopausal bleeding 12/14 [place] bleeding Screening for V76.51 Resolved Indigo Screening for malignant 12/26 07/02 Yokum [place] malignant neoplasms of neoplasms of colon colon Insomnia, 307.42 Active Indigo 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 [place] disorder of initiating or maintaining sleep Establish care V68.89 Resolved Indigo Encounters for or get 01/16 07/02 Yo [place] other specified acquainted administrative visit purpose Weakness, left 342.90 Resolved Indigo Hemiplegia, side of body 06/20 10/18 Yokum [place] unspecified, affecting unspecified side TIA 435.9 Active Indigo Unspecified 06/20 07/02 Yokum [place] transient cerebral ischemia Knee pain, 719.46 Active Indigo Pain in joint bilateral 06/20 10/18 Yokum [place] involving lower leg Bronchitis 490 Resolved Indigo Bronchitis, not 07/23 10/18 Yokum [place] specified as acute or chronic Diabetes 357.2 Active Maliheh Polyneuropathy mellitus, 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 Knee pain, 719.46 Active Indigo Pain in joint right 06/20 10/18 Yokum [place] involving lower leg Jesi 112.3 Active Indigo Candidiasis of intertrigo 10/09 10/18 Yokum [place] skin and nails Hyperlipidemia 272.4 Active Anne Other and 12/24 12/24 Neil unspecified RMA hyperlipidemia Incontinence, 788.33 Active Indigo Mixed mixed, 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 [place] incontinence urge/stress (female) (male) Female stress 625.6 Active Yury nAthonyCarlos Enrique Stress incontinence 01/03 01/03 Cy patel MD female ABNORMAL VAGINAL ICD-626.9 Inactive Maite Sanchez BLEEDING PhD SCABIES ICD-133.0 Inactive Maite Sanchez PhD FATIGUE ICD-780.79 Inactive Indigo Yokum [place] OTH GENERAL ICD-V70.3 Inactive Maite Sanchez MEDICAL PhD EXAMINATION ADMIN PURPOSES OTHER ABNORMAL ICD-790.29 Inactive Maite Sanchez GLUCOSE PhD ACUTE BRONCHITIS ICD-466.0 Inactive Maite Matt Sanchez PhD DEPENDENT EDEMA, ICD-782.3 Inactive Indigo Yokum LEGS, BILATERAL [place] HYPOKALEMIA, MILD ICD-276.8 Inactive Indigo Yokum [place] Diabetes mellitus, ICD-250.02 Inactive Indigo Yokum type II, [place] uncontrolled Sinusitis, ICD-461.1 Inactive Ismael Coyne frontal, acute Amandeep ONEAL Laryngitis, acute ICD-464.00 Inactive Ismael Coyne Amandeep ONEAL Routine ICD-V72.31 Inactive Indigo Yokum gynecological [place] examination Postmenopausal ICD-627.1 Inactive Indigo Yokum 2015 bleeding [place] Screening for ICD-V76.51 Inactive Indigo Yokum 2015 malignant [place] neoplasms of colon Establish care or ICD-V68.89 Inactive Indigo Yokum get acquainted [place] visit Weakness, left ICD-342.90 Inactive Indigo Yokum side of body [place] Bronchitis ICD-490 Inactive Indigo Yokum [place] Medication List Medication Instructions Start Stop Generic NDC Status Provider Patient Date Date Name Instruction METFORMIN 2 tablets METFORMIN 13311857636 No Indigo Active HCL 500 MG by mouth HCL Longer Yokum TB24 twice Active [place] daily AMARYL 1 MG 1 tablet GLIMEPIRID 98969744928 No Indigo Active ORAL TABS orally E Longer Yokum twice Active [place] daily NYSTATIN apply to NYSTATIN 28074435677 Active Indigo Active 497575 rash TID Yokum UNIT/GM PRN [place] CREA TROKENDI XR 2 tab TOPIRAMATE 95070724666 Active Malihe Active 100 MG ORAL daily h [id number] Ziglar i DEPUTY CHIEF SHERIFF METOPROLOL 1 tab po METOPROLOL 54303529287 Active Indigo Active TARTRATE 25 bid TARTRATE Yokum MG TABS [place] AZITHROMYCI 2 po qd x AZITHROMYC 18462706357 No Jillin Active N 250 MG 1 day, IN Longer a TABS then 1 po Active Frazel qd x 4 l [place] days PREDNISONE 2 pills PREDNISONE 57090711626 No Jillin Active 20 MG TAB daily x 4 Longer a days Active Frazel l [place] PIOGLITAZON take one PIOGLITAZO 38122893140 Active Malihe Active E HCL 30 MG a day NE HCL h ORAL TABS Ziglar i DEPUTY CHIEF SHERIFF JANUVIA 100 1 tablet SITAGLIPTI 14510697447 No Indigo Active MG TABS by mouth N Longer Yokum daily PHOSPHATE Active [place] ATORVASTATI 1 pill by ATORVASTAT 10975458967 Active Indigo Active N CALCIUM mouth IN CALCIUM Yokum 10 MG TABS nightly, [place] for cholester ol ASPIRIN 81 1 po qd ASPIRIN 23383553722 Active Indigo Active MG ORAL Yokum TABS [place] NITROFURANT One NITROFURAN 87441504646 No Indigo Active OIN MONOHYD capsule TOIN Longer Yokum MACRO 100 BID for MONOHYD Active [place] MG CAPS UTI MACRO TRAMADOL 1/2 po TRAMADOL 91367616433 No Jillin Active HCL 50 MG tid with HCL Longer a TABS ES Active Frazel Tylenol l [place] prn pain VYVANSE 20 1 tablet LISDEXAMFE 15911248478 No Jillin Active MG ORAL daily for TAMINE Longer a CAPS binge DIMESYLATE Active Frazel eating l [place] disorder LASIX 20 MG 2 tablet FUROSEMIDE 10958763595 Active Indigo Active TAB by mouth Yokum daily [place] CELEBREX 1 tablet CELECOXIB 66145464282 Active Indigo Active 200 MG CAPS by mouth Yokum daily [place] with meals PREDNISONE 2 tablets PREDNISONE 00200090222 No Joseph Active 20 MG TAB today, Longer W Farooq then 1 Active DO tablet days 2-4 DIFLUCAN 1 tablet FLUCONAZOL 54472008607 No Joseph Active 100 MG TAB by mouth E Longer W Farooq daily x 3 Active DO days DIFLUCAN 1 tablet FLUCONAZOL 87703849539 No Joseph Active 100 MG TABS by mouth E Longer W Farooq every Active DO other day for 2 doses ZOFRAN 4 MG 1 po q6hr ONDANSETRO 93106615612 Active Joseph Active TABS PRN N HCL W Farooq Nausea DO PREDNISONE 2 tabs PREDNISONE 34462213382 No Joseph Active 20 MG TAB daily for Longer W Farooq 3 days, 1 Active DO tab daily for 3 days, 1/2 tab daily for 2 days AMOXICILLIN 2 po BID AMOXICILLI 30783167018 No Maite C Active 500 MG CAPS x 10 days N Longer Madril Active PhD LISINOPRIL 1 tablet LISINOPRIL 96691496810 No Maite C Active 20 MG TABS by mouth Longer Madril daily Active PhD POTASSIUM 2 capsule POTASSIUM 81056032941 No Joseph Active CHLORIDE CR by mouth CHLORIDE Longer W Farooq 10 MEQ CPCR daily Active DO SPIRONOLACT 1 tablet SPIRONOLAC 78651353579 No Joseph Active ONE 25 MG by mouth TONE Longer W Farooq TAB daily Active DO METFORMIN 1 tablet METFORMIN 58401470109 No Joseph Active HCL 500 MG by mouth HCL Longer W Farooq TABS twice Active DO daily AMARYL 1 MG 1 tab GLIMEPIRID 23426233517 No Joseph Active TABS twice E Longer W Farooq daily Active DO PHENTERMINE 1 po q am PHENTERMIN 92424623415 No Joseph Active HCL 37.5 MG for wt. E HCL Longer W Farooq TABS loss Active DO PROMETHAZIN 1 tab by PROMETHAZI 91298765710 No Joseph Active E HCL 25 MG mouth NE HCL Longer W Farooq TABS every 6 Active DO hours as needed CIPROFLOXAC Take one CIPROFLOXA 51657413987 No Joseph Active IN HCL 500 (1) DELORES HCL Longer W Farooq MG TABS tablet by Active DO mouth twice a day ABILIFY 5 one p.o. ARIPIPRAZO 05676613105 No Joseph Active MG TABS q. day LE Longer W Farooq Active DO HYDROCHLORO 2 tabs HYDROCHLOR 47304181992 No Joseph Active THIAZIDE 25 every OTHIAZIDE Longer W Farooq MG TABS morning Active DO ABILIFY 2 1 po q hs ARIPIPRAZO 61260638301 No Joseph Active MG TABS for major LE Longer W Farooq depressio Active DO n ADIPEX-P 1/2 tab PHENTERMIN 80929228658 No Casey Active 37.5 MG po q am E HCL Longer Leonarda CAPS for Active PA weight loss CIPRO 500 1 tablet CIPROFLOXA 37459693810 No Casey Active MG TAB by mouth DELORES HCL Longer [place] twice Active PA daily NECON 1/35 1 po NORETHINDR 39712207117 No Casey Active (28) 1-35 daily ONE-ETH Longer [place] MG-MCG TABS ESTRADIOL Active PA TRAMADOL 1 po tid TRAMADOL 59655173067 No Casey Active HCL 50 MG with ES HCL Longer [place] TABS Tylenol Active PA FLUCONAZOLE one p.o. FLUCONAZOL 17626195014 No Casey Active 100 MG TABS q. day 2 E Longer [place] days Active PA POTASSIUM 1 capsule POTASSIUM 62614399553 No Casey Active CHLORIDE CR by mouth CHLORIDE Longer 10 MEQ CPCR daily Active PA IMIPRAMINE Take 6 IMIPRAMINE 70487155307 Active Indigo Active HCL 50 MG tablets HCL Yokum TABS by mouth [place] at bedtime DIFLUCAN 1 tablet FLUCONAZOL 17231027132 No Joseph Active 100 MG TAB by mouth E Longer W Farooq daily Active DO VERAPAMIL 2 po bid VERAPAMIL 36575844521 Active Indigo Active HCL CR 120 HCL Yokum MG TAB CR [place] PERMETHRIN apply PERMETHRIN 44062815914 No Joseph Active 5 % CREA neck to Longer W Farooq toes Active DO tonight and then rinse off in morning. repeat at 7 days SEROQUEL XR one p.o. QUETIAPINE 27543874722 No Joseph Active 50 MG q. FUMARATE Longer W Farooq [id number] evening Active DO TRAMADOL 1-2 TRAMADOL 72411759576 No Joseph Active HCL 50 MG tablets HCL Longer W Farooq TABS every 6-8 Active DO hours as needed for pain ALPRAZOLAM one p.o. ALPRAZOLAM 17506267417 Active Indigo Active 3 MG q.h.s. Yokum [id number] [place] ALPRAZOLAM Take 1 ALPRAZOLAM 57430891799 No Joseph Active XR tablet by [id number] Longer W Farooq [id number] mouth at Active DO bedtime DIFLUCAN 1 tablet FLUCONAZOL 88475517621 No Joseph Active 100 MG TAB by mouth E Longer W Farooq daily Active DO AMBIEN 10 1 tab by ZOLPIDEM 12372245089 Active Indigo Active MG TAB mouth at TARTRATE Yokum bedtime [place] as needed for sleep DIFLUCAN 100 1 tablet DIFLUCAN 803511 FLUCONAZOLE Inactive MG TAB by mouth 100 MG TAB daily ALPRAZOLAM Take 1 ALPRAZOLAM ALPRAZOLAM Inactive XR [id number] tablet by XR [id number] mouth at [id number] bedtime TRAMADOL HCL 1-2 TRAMADOL 106787 TRAMADOL HCL Inactive 50 MG TABS tablets HCL 50 MG every 6-8 TABS hours as needed for pain SEROQUEL XR one p.o. SEROQUEL XR QUETIAPINE Inactive 50 MG q. 50 MG FUMARATE [id number] evening [id number] PERMETHRIN 5 apply PERMETHRIN 981305 PERMETHRIN Inactive % CREA neck to 5 % CREA toes tonight and then rinse off in morning. repeat at 7 days DIFLUCAN 100 1 tablet DIFLUCAN 248721 FLUCONAZOLE Inactive MG TAB by mouth 100 MG TAB daily POTASSIUM 1 capsule POTASSIUM POTASSIUM Inactive CHLORIDE CR by mouth CHLORIDE CR CHLORIDE 10 MEQ CPCR daily 10 MEQ CPCR FLUCONAZOLE one p.o. FLUCONAZOLE 184688 FLUCONAZOLE Inactive 100 MG TABS q. day 2 100 MG TABS days TRAMADOL HCL 1 po tid TRAMADOL 980125 TRAMADOL HCL Inactive 50 MG TABS with ES HCL 50 MG Tylenol TABS NECON 1/35 1 po NECON 1/35 NORETHINDRONE- Inactive (28) 1-35 daily (28) 1-35 ETH ESTRADIOL MG-MCG TABS MG-MCG TABS CIPRO 500 MG 1 tablet CIPRO 500 045719 CIPROFLOXACIN Inactive TAB by mouth MG TAB HCL twice daily ADIPEX-P 1/2 tab ADIPEX-P 184764 PHENTERMINE Inactive 37.5 MG CAPS po q am 37.5 MG HCL for CAPS weight loss ABILIFY 2 MG 1 po q hs ABILIFY 2 291729 ARIPIPRAZOLE Inactive TABS for major MG TABS depressio n HYDROCHLOROT 2 tabs HYDROCHLORO 032902 HYDROCHLOROTHI Inactive HIAZIDE 25 every THIAZIDE 25 AZIDE MG TABS morning MG TABS ABILIFY 5 MG one p.o. ABILIFY 5 366323 ARIPIPRAZOLE Inactive TABS q. day MG TABS CIPROFLOXACI Take one CIPROFLOXAC 123137 CIPROFLOXACIN Inactive N HCL 500 MG (1) IN HCL 500 HCL TABS tablet by MG TABS mouth twice a day PROMETHAZINE 1 tab by PROMETHAZIN 085605 PROMETHAZINE Inactive HCL 25 MG mouth E HCL 25 MG HCL TABS every 6 TABS hours as needed PHENTERMINE 1 po q am PHENTERMINE 048988 PHENTERMINE Inactive HCL 37.5 MG for wt. HCL 37.5 MG HCL TABS loss TABS AMARYL 1 MG 1 tab AMARYL 1 MG 589765 GLIMEPIRIDE Inactive TABS twice TABS daily METFORMIN 1 tablet METFORMIN 666325 METFORMIN HCL Inactive HCL 500 MG by mouth HCL 500 MG TABS twice TABS daily SPIRONOLACTO 1 tablet SPIRONOLACT 314760 SPIRONOLACTONE Inactive NE 25 MG TAB by mouth ONE 25 MG daily TAB POTASSIUM 2 capsule POTASSIUM POTASSIUM Inactive CHLORIDE CR by mouth CHLORIDE CR CHLORIDE 10 MEQ CPCR daily 10 MEQ CPCR LISINOPRIL 1 tablet LISINOPRIL 596011 LISINOPRIL Inactive 20 MG TABS by mouth 20 MG TABS daily DIFLUCAN 100 1 tablet DIFLUCAN 19760111 FLUCONAZOLE Inactive MG TABS by mouth 100 MG TABS every other day for 2 doses DIFLUCAN 100 1 tablet DIFLUCAN 688481 FLUCONAZOLE Inactive MG TAB by mouth 100 MG TAB daily x 3 days PREDNISONE 2 tablets PREDNISONE 747508 PREDNISONE Inactive 20 MG TAB today, 20 MG TAB then 1 tablet days 2-4 VYVANSE 20 1 tablet VYVANSE 20 LISDEXAMFETAMI Inactive MG ORAL CAPS daily for MG ORAL NE DIMESYLATE binge CAPS eating disorder TRAMADOL HCL 1/2 po TRAMADOL 588094 TRAMADOL HCL Inactive 50 MG TABS tid with HCL 50 MG ES TABS Tylenol prn pain JANUVIA 100 1 tablet JANUVIA 100 SITAGLIPTIN Inactive MG TABS by mouth MG TABS PHOSPHATE daily AMARYL 1 MG 1 tablet AMARYL 1 MG 253511 GLIMEPIRIDE Inactive ORAL TABS orally ORAL TABS twice daily METFORMIN 2 tablets METFORMIN METFORMIN HCL Inactive HCL 500 MG by mouth HCL 500 MG TB24 twice TB24 daily AMOXICILLIN 2 po BID AMOXICILLIN 087035 AMOXICILLIN Inactive 500 MG CAPS x 10 days 500 MG CAPS PREDNISONE 2 tabs PREDNISONE 661379 PREDNISONE Inactive 20 MG TAB daily for 20 MG TAB 3 days, 1 tab daily for 3 days, 1/2 tab daily for 2 days NITROFURANTO One NITROFURANT 6849666 NITROFURANTOIN Inactive IN MONOHYD capsule OIN MONOHYD MONOHYD MACRO MACRO 100 MG BID for MACRO 100 CAPS UTI MG CAPS PREDNISONE 2 pills PREDNISONE 974870 PREDNISONE Inactive 20 MG TAB daily x 4 20 MG TAB days AZITHROMYCIN 2 po qd x AZITHROMYCI 1936613 AZITHROMYCIN Inactive 250 MG TABS 1 day, [...] HGBA1C - Chemistry sodium, serum 140 mmol/L 570-581 6235/06/03 potassium, serum 3.9 mmol/L 3.5-5.2 chloride, serum [...] Panel - Chemistry sodium, serum 136 mmol/L 286-890 4645/01/04 carbon dioxide, venous blood 27.0 mmol/L 21.0-32.0 potassium, serum 4.6 mmol/L 3.5-5.2 chloride, serum 98 mmol/L 98-107 blood glucose 174 mg/dL 65-110 urea nitrogen, blood 12 mg/dL 7-18 creatinine, serum 0.78 mg/dL 0.55-1.30 alanine aminotransferase (SGPT), serum 65 U/L 12-78 aspartate aminotransferase (SGOT), serum 34 U/L 15-37 calcium, serum 8.9 mg/dL 8.5-10.1 bilirubin, serum, total 0.40 mg/dL 0.00-1.00 cholesterol, serum 219 mg/dL 301-113 8532/01/04 triglyceride, serum, fasting 214 mg/dL 30-200 HDL cholesterol, serum 39 mg/dL 32-96 LDL cholesterol, serum 137 mg/dL 0-130 Lab Report: Lipid Panel - Chemistry cholesterol, serum 157 mg/dL 962-265 5395/08/22 triglyceride, serum, fasting 215 mg/dL 30-200 HDL [...] mg/dL Encounters Code Encounter Date Provider Facility CPT-32587 Level 4 New Patient Yury Benoit MD [facility] 15:17:12 CDT CPT-60291 Level 3 Est. Patient [facility] - 13:37:46 CDT [place] CPT-69940 Level 4 Est. Patient [facility] - 10:01:06 CDT [place] CPT-71374 Level 3 Est. Patient [facility] 08:58:07 CDT DEPUTY CHIEF SHERIFF CPT-42462 Level 3 Est. [facility] CPT-28191 Level 4 Est. Patient [facility] 17:29:53 CASTING MACHINE ADJUSTER DEPUTY CHIEF SHERIFF CPT-34576 Level 4 Est. Patient [facility] 09:51:54 CASTING MACHINE ADJUSTER CPT-97933 Level 3 Est. Patient [facility] 18:59:38 CDT CPT-20287 Level 3 Est. Patient Joseph Pineda [facility] 14:42:12 CDT -[facility] CPT-22203 Level 3 Est. Patient Joseph Pineda [facility] 22:18:20 CDT -[facility] CPT-02132 Level 3 Est. Patient Joseph Edwin [facility] 16:46:04 CDT -[facility] CPT-50931 Level 3 Est. Patient Joseph Edwin [facility] 15:39:53 CDT -[facility] CPT-77198 Level 3 Est. Patient Maite Sanchez MD [facility] 13:33:34 CDT -[facility] CPT-45151 Level 3 Est. Patient Joseph Pineda [facility] 11:37:08 CDT -[facility] CPT-59974 Level 3 Est. Patient Joseph Pineda [facility] 17:13:29 CASTING MACHINE ADJUSTER -RHC CPT-65275 Level 3 Est. Patient Joseph Pineda [facility] 18:42:44 CDT CPT-45604 Level 3 Est. Patient Joseph Edwin [facility] 16:25:39 CDT CPT-56036 Level 3 Est. Patient Casey Brower [facility] 09:52:45 CDT -[facility] CPT-50983 Level 3 Est. Patient Joseph Pineda [facility] 11:03:29 CASTING MACHINE ADJUSTER -RHC CPT-26292 Level 3 Est. Patient Joseph Edwin [facility] 11:03:08 CASTING MACHINE ADJUSTER -RHC CPT-47547 Level 3 Est. Patient Joseph Edwin [facility] 14:33:31 CDT -[facility] CPT-69588 Level 3 Est. Patient Joseph Edwin [facility] 17:05:02 CASTING MACHINE ADJUSTER -RHC CPT-91480 Level 3 Est. Patient Joseph Edwin [facility] 17:48:06 CASTING MACHINE ADJUSTER -RHC CPT-32014 Level 3 Est. Patient Joseph Edwin [facility] 14:59:22 CASTING MACHINE ADJUSTER -RHC CPT-26807 Level 3 Est. Patient Joseph Edwin [facility] - 21:45:56 CASTING MACHINE ADJUSTER [place] [facility] CPT-15755 Level 3 Est. Patient Joseph Edwin [facility] 21:29:50 CDT -R[facility] CPT-53386 Level 3 Est. Patient Milano Edwin [facility] 12:41:09 CDT -[facility] Procedures Code Procedure Name Date Entry Date Standard Description CPT-17546 Postop F/U Visit 18:20:10 CDT CPT-A4351 Coloplast Female Cath 09:37:10 CDT CPT-66030 Urine Dip (Floor Use Only) 15:17:13 CDT CPT-48968 Dil F ureth int 15:17:13 CDT CPT-15094 Venipuncture Draw Fee 09:19:08 CDT CPT-61665 Lipid - LAB USE ONLY 09:19:07 CDT CPT-JTINJ Asp/Joint Injection 09:26:49 CDT CPT-61614 Chest 2V Frontal and Lat 14:47:43 CDT CPT-JTINJ Asp/Joint Injection 09:51:53 CASTING MACHINE ADJUSTER CPT-OV Office Visit 17:39:05 CDT CPT-OV Office Visit 15:19:50 CDT CPT-09750 Sono transvag pelvis non OB uterus ovaries cervix 18:04:34 CDT CPT-56704 Venipuncture Draw Fee 08:55:49 CASTING MACHINE ADJUSTER
--- OUTSIDE RECORDS SUMMARY | 2016-11-20 13:46 | External Medical Summary | Clinical Summary ---
:1965 Author Organization [facility] Address [address] [place] [address] Phone Allergies, Adverse Reactions, Alerts Allergy Name Reaction Description Start Date Severity Status Provider NKDA Critical No Longer Indigo Yokum AUTOMATIC RIVETING MACHINE OPERATOR Active NKDA Critical Inactive Adrianna [...] Resolved Indigo Other malaise 05/24 07/02 Yokum AUTOMATIC RIVETING MACHINE OPERATOR and fatigue SLEEP APNEA, 327.23 [...] Resolved Indigo Hypopotassemia MILD 10/29 07/02 Yo AUTOMATIC RIVETING MACHINE OPERATOR Diabetes, Type 250.00 Inactive Joseph Pineda Diabetes 2 06/27 06/27 Farooq DO mellitus without mention of complication, type II or unspecified type, not stated as uncontrolled Diabetes 250.02 Active Indigo Diabetes mellitus, type 06/27um AUTOMATIC RIVETING MACHINE OPERATOR mellitus II, without mention uncontrolled [...] Resolved Indigo Routine gynecological 12/14 07/02 Yo AUTOMATIC RIVETING MACHINE OPERATOR gynecological examination examination Postmenopausal 627.1 Resolved Indigo Postmenopausal bleeding 12/14 07/02 Youm AUTOMATIC RIVETING MACHINE OPERATOR bleeding Screening for V76.51 Resolved Indigo Screening for malignant 12/26 07/02 Yokum AUTOMATIC RIVETING MACHINE OPERATOR malignant neoplasms of neoplasms of colon colon Insomnia, 307.42 Active Indigo 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 AUTOMATIC RIVETING MACHINE OPERATOR disorder of initiating or maintaining sleep Establish care V68.89 Resolved Indigo Encounters for or get 01/16 07/02 Yo AUTOMATIC RIVETING MACHINE OPERATOR other specified acquainted administrative visit purpose Weakness, left 342.90 Active Indigo Hemiplegia, side of body 06/20 06/20 Yokum AUTOMATIC RIVETING MACHINE OPERATOR unspecified, affecting unspecified side TIA 435.9 Active Indigo Unspecified 06/20 07/02 Yokum AUTOMATIC RIVETING MACHINE OPERATOR transient cerebral ischemia Knee pain, 719.46 Active Indigo Pain in joint bilateral 06/20 07/02 Yokum AUTOMATIC RIVETING MACHINE OPERATOR involving lower leg ABNORMAL VAGINAL ICD-626.9 Inactive Maite Sanchez BLEEDING PhD SCABIES ICD-133.0 Inactive Maite Sanchez PhD FATIGUE ICD-780.79 Inactive Indigo Yokum AUTOMATIC RIVETING MACHINE OPERATOR OTH GENERAL ICD-V70.3 Inactive Maite Sanchez MEDICAL MD PhD EXAMINATION ADMIN PURPOSES OTHER ABNORMAL ICD-790.29 Inactive Maite Sanchez GLUCOSE PhD ACUTE BRONCHITIS ICD-466.0 Inactive Maite Sanchez PhD HYPOKALEMIA, MILD ICD-276.8 Inactive Indigo Yokum AUTOMATIC RIVETING MACHINE OPERATOR Sinusitis, ICD-461.1 Inactive Ismael Coyne frontal, acute Amandeep ONEAL Laryngitis, acute ICD-464.00 Inactive Ismael Coyne Amandeep ONEAL Routine ICD-V72.31 Inactive Indigo Yokum gynecological AUTOMATIC RIVETING MACHINE OPERATOR examination Postmenopausal ICD-627.1 Inactive Indigo Yokum 2015 bleeding AUTOMATIC RIVETING MACHINE OPERATOR Screening for ICD-V76.51 Inactive Indigo Yokum 2015 malignant AUTOMATIC RIVETING MACHINE OPERATOR neoplasms of colon Establish care or ICD-V68.89 Inactive Indigo Yokum get acquainted AUTOMATIC RIVETING MACHINE OPERATOR visit Medication List Medication Instructions Start Stop Generic NDC Status Provider Patient Date Date Name Instruction PIOGLITAZONE take PIOGLITAZONE 10485656048 Active Maliheh Active HCL 30 MG ORAL one a HCL Ziglari TABS day MASS COMMUNICATIONS PROFESSOR JANUVIA 100 MG 1 2 SITAGLIPTIN 45695796121 No Indigo Active TABS tablet 0 PHOSPHATE Longer Yokum by 1 Active AUTOMATIC RIVETING MACHINE OPERATOR mouth 6 daily / 0 2 / 6 ATORVASTATIN 1 pill ATORVASTATIN 28184972954 Active Indigo Active CALCIUM 10 MG by CALCIUM Yokum TABS mouth AUTOMATIC RIVETING MACHINE OPERATOR nightly , for cholest diana TROKENDI XR 100 1 tab TOPIRAMATE 95595497671 Active Indigo Active MG ORAL daily Yokum [id number] AUTOMATIC RIVETING MACHINE OPERATOR ASPIRIN 81 MG 1 po qd ASPIRIN 97085701114 Active Indigo Active ORAL TABS Yokum AUTOMATIC RIVETING MACHINE OPERATOR NITROFURANTOIN One 2 NITROFURANTOIN 52051121043 No Indigo Active MONOHYD MACRO capsule 0 MONOHYD MACRO Longer Yokum 100 MG CAPS BID for 1 Active AUTOMATIC RIVETING MACHINE OPERATOR UTI 6 / 0 3 METFORMIN HCL 2 METFORMIN HCL 80244063771 Active Indigo Active 500 MG TB24 tablets Yokum by AUTOMATIC RIVETING MACHINE OPERATOR mouth twice daily TRAMADOL HCL 50 1/2 po 2 TRAMADOL HCL 49441475699 No Jillina Active MG TABS tid 0 Longer Frazell with ES 1 Active AUTOMATIC RIVETING MACHINE OPERATOR Tylenol 5 prn / pain 0 / 2 VYVANSE 20 MG 1 2 LISDEXAMFETAMIN 36080140217 No Jillina Active ORAL CAPS tablet 0 E DIMESYLATE Longer Frazell daily 1 Active AUTOMATIC RIVETING MACHINE OPERATOR for 5 binge / eating 0 disorde 8 r / 1 2 LASIX 20 MG TAB 2 FUROSEMIDE 72467874280 Active Joseph W Active tablet Farooq DO by mouth daily CELEBREX 200 MG 1 CELECOXIB 11618432116 Active Joseph W Active CAPS tablet Farooq DO by mouth daily with meals PREDNISONE 20 2 2 PREDNISONE 76156624577 No Joseph W Active MG TAB tablets 0 Longer Farooq DO today, 1 Active then 1 5 tablet / days 0 2-4 4 3 DIFLUCAN 100 MG 1 2 FLUCONAZOLE 71318111559 No Joseph W Active TAB tablet 0 Longer Farooq DO by 1 Active mouth 5 daily x / 3 days 0 3 AMARYL 1 MG 1 GLIMEPIRIDE 49231534095 Active Joseph W Active ORAL TABS tablet Farooq DO orally twice daily DIFLUCAN 100 MG 1 2 FLUCONAZOLE 23805819087 No Joseph W Active TABS tablet 0 Longer Farooq DO by 1 Active mouth 5 every / other 0 day for 1 2 doses / 2 3 ZOFRAN 4 MG 1 po ONDANSETRON HCL 63793110537 Active Joseph W Active TABS q6hr Farooq DO PRN Nausea PREDNISONE 20 2 tabs 2 PREDNISONE 58450470430 No Joseph W Active MG TAB daily 0 Longer Farooq DO for 3 1 Active days, 1 4 tab / daily 1 for 3 0 days, / 1/2 tab 2 daily 5 for 2 days AMOXICILLIN 500 2 po 2 AMOXICILLIN 11310772163 No Maite C Active MG CAPS BID x 0 Longer Madril MD 10 days 1 Active PhD 4 / 1 0 / 2 0 LISINOPRIL 20 1 2 LISINOPRIL 25191740485 No Maite C Active MG TABS tablet 0 Longer Madril MD by 1 Active PhD mouth 4 daily / 1 0 / 1 0 POTASSIUM 2 2 POTASSIUM 84879665445 No Joseph W Active CHLORIDE CR 10 capsule 0 CHLORIDE Longer Farooq DO MEQ CPCR by 1 Active mouth 4 daily / 0 8 / 2 9 SPIRONOLACTONE 1 2 SPIRONOLACTONE 75098800100 No Joseph W Active 25 MG TAB tablet 0 Longer Farooq DO by 1 Active mouth 4 daily / 0 8 / 2 9 METFORMIN HCL 1 2 METFORMIN HCL 23093341089 No Joseph W Active 500 MG TABS tablet 0 Longer Farooq DO by 1 Active mouth 4 twice / daily 0 8 / 2 9 AMARYL 1 MG 1 tab 2 GLIMEPIRIDE 82670906407 No Joseph W Active TABS twice 0 Longer Farooq DO daily 1 Active 4 / 0 8 / 2 9 PHENTERMINE HCL 1 po q 2 PHENTERMINE HCL 05531053984 No Joseph W Active 37.5 MG TABS am for 0 Longer Farooq DO wt. 1 Active loss 3 / 1 2 / 2 3 PROMETHAZINE 1 tab 2 PROMETHAZINE 43611786947 No Joseph W Active HCL 25 MG TABS by 0 HCL Longer Farooq DO mouth 1 Active every 6 3 hours / as 0 needed 9 / 0 9 CIPROFLOXACIN Take 2 CIPROFLOXACIN 07610991761 No Joseph W Active HCL 500 MG TABS one (1) 0 HCL Longer Farooq DO tablet 1 Active by 3 mouth / twice a 0 day 9 / 0 9 ABILIFY 5 MG one 2 ARIPIPRAZOLE 74065807869 No Joseph W Active TABS p.o. q. 0 Longer [facility] day 1 Active 3 / 0 9 / 0 9 HYDROCHLOROTHIA 2 tabs 2 HYDROCHLOROTHIA 64354705805 No Joseph W Active ZIDE 25 MG TABS every 0 ZIDE Longer [facility] morning 1 Active 3 / 0 6 / 2 7 ABILIFY 2 MG 1 po q 2 ARIPIPRAZOLE 41248341192 No Joseph W Active TABS hs for 0 Longer [facility] major 1 Active depress 3 ion / 0 5 / 0 7 ADIPEX-P 37.5 1/2 tab 2 PHENTERMINE HCL 85212297965 No Casey Active MG CAPS po q am 0 Longer [place] [facility] for 1 Active weight 3 loss / 0 5 / 0 1 CIPRO 500 MG 1 2 CIPROFLOXACIN 80870707017 No Casey Active TAB tablet 0 HCL Longer [place] PA by 1 Active mouth 3 twice / daily 0 5 / 0 1 NECON 1/35 (28) 1 po 2 NORETHINDRONE-E 57380211578 No Casey Active 1-35 MG-MCG daily 0 TH ESTRADIOL Longer [place] PA TABS 1 Active 3 / 0 5 / 0 1 TRAMADOL HCL 50 1 po 2 TRAMADOL HCL 51245566520 No Casey Active MG TABS tid 0 Longer [place] PA with ES 1 Active Tylenol 3 / 0 5 / 0 1 FLUCONAZOLE 100 one 2 FLUCONAZOLE 41971267012 No Casey Active MG TABS p.o. q. 0 Longer [facility] day 2 1 Active days 3 / 0 5 / 0 1 POTASSIUM 1 2 POTASSIUM 35941693806 No Casey Active CHLORIDE CR 10 capsule 0 CHLORIDE Longer [place] PA MEQ CPCR by 1 Active mouth 3 daily / 0 5 / 0 1 IMIPRAMINE HCL Take 6 IMIPRAMINE HCL 14116780669 Active Joseph W Active 50 MG TABS tablets Farooq DO by mouth at bedtime DIFLUCAN 100 MG 1 2 FLUCONAZOLE 20676781919 No Joseph W Active TAB tablet 0 Longer Farooq DO by 1 Active mouth 2 daily / 0 2 / 2 4 METOPROLOL 1/2 tab METOPROLOL 21872330467 Active Joseph W Active TARTRATE 25 MG po bid TARTRATE Farooq DO TABS VERAPAMIL HCL 2 po VERAPAMIL HCL 41132718530 Active Joseph W Active CR 120 MG TAB bid Farooq DO CR PERMETHRIN 5 % apply 2 PERMETHRIN 82145630370 No Joseph W Active CREA neck to 0 Longer Farooq DO toes 1 Active tonight 2 and / then 0 rinse 1 off in / morning 2 . 0 repeat at 7 days SEROQUEL XR 50 one 2 QUETIAPINE 98996336976 No Joseph W Active MG [id number] p.o. q. 0 FUMARATE Longer Farooq DO evening 1 Active 2 / 0 1 / 2 0 TRAMADOL HCL 50 1-2 2 TRAMADOL HCL 55068096806 No Joseph W Active MG TABS tablets 0 Longer Farooq DO every 1 Active 6-8 2 hours / as 0 needed 1 for / pain 2 0 ALPRAZOLAM 3 MG one ALPRAZOLAM 59600080697 Active Indigo Active [id number] p.o. Yokum q.h.s. AUTOMATIC RIVETING MACHINE OPERATOR ALPRAZOLAM XR Take 1 2 ALPRAZOLAM 89453294764 No Joseph W Active [id number] tablet 0 [id number] Longer Farooq DO by 1 Active mouth 1 at / bedtime 1 1 / 2 9 DIFLUCAN 100 MG 1 2 FLUCONAZOLE 62055782995 No Joseph W Active TAB tablet 0 Longer Farooq DO by 1 Active mouth 1 daily / 1 0 / 0 6 AMBIEN 10 MG 1 tab ZOLPIDEM 73683643486 Active Afsaneh Active TAB by TARTRATE Gericke, mouth MA at bedtime as needed for sleep DIFLUCAN 100 1 tablet DIFLUCAN 614333 FLUCONAZOLE Inactive MG TAB by mouth 100 MG TAB daily ALPRAZOLAM Take 1 ALPRAZOLAM ALPRAZOLAM Inactive XR [id number] tablet by XR [id number] mouth at [id number] bedtime TRAMADOL HCL 1-2 TRAMADOL 932456 TRAMADOL HCL Inactive 50 MG TABS tablets HCL 50 MG every 6-8 TABS hours as needed for pain SEROQUEL XR one p.o. SEROQUEL XR QUETIAPINE Inactive 50 MG q. 50 MG FUMARATE [id number] evening [id number] PERMETHRIN 5 apply PERMETHRIN 971126 PERMETHRIN Inactive % CREA neck to 5 % CREA toes tonight and then rinse off in morning. repeat at 7 days DIFLUCAN 100 1 tablet DIFLUCAN 362345 FLUCONAZOLE Inactive MG TAB by mouth 100 MG TAB daily POTASSIUM 1 capsule POTASSIUM POTASSIUM Inactive CHLORIDE CR by mouth CHLORIDE CR CHLORIDE 10 MEQ CPCR daily 10 MEQ CPCR FLUCONAZOLE one p.o. FLUCONAZOLE 19760111 FLUCONAZOLE Inactive 100 MG TABS q. day 2 100 MG TABS days TRAMADOL HCL 1 po tid TRAMADOL 858570 TRAMADOL HCL Inactive 50 MG TABS with ES HCL 50 MG Tylenol TABS NECON 1/35 1 po NECON 1/35 NORETHINDRONE- Inactive (28) 1-35 daily (28) 1-35 ETH ESTRADIOL MG-MCG TABS MG-MCG TABS CIPRO 500 MG 1 tablet CIPRO 500 251933 CIPROFLOXACIN Inactive TAB by mouth MG TAB HCL twice daily ADIPEX-P 1/2 tab ADIPEX-P 152462 PHENTERMINE Inactive 37.5 MG CAPS po q am 37.5 MG HCL for CAPS weight loss ABILIFY 2 MG 1 po q hs ABILIFY 2 630050 ARIPIPRAZOLE Inactive TABS for major MG TABS depressio n HYDROCHLOROT 2 tabs HYDROCHLORO 549041 HYDROCHLOROTHI Inactive HIAZIDE 25 every THIAZIDE 25 AZIDE MG TABS morning MG TABS ABILIFY 5 MG one p.o. ABILIFY 5 679655 ARIPIPRAZOLE Inactive TABS q. day MG TABS CIPROFLOXACI Take one CIPROFLOXAC 123602 CIPROFLOXACIN Inactive N HCL 500 MG (1) IN HCL 500 HCL TABS tablet by MG TABS mouth twice a day PROMETHAZINE 1 tab by PROMETHAZIN 318526 PROMETHAZINE Inactive HCL 25 MG mouth E HCL 25 MG HCL TABS every 6 TABS hours as needed PHENTERMINE 1 po q am PHENTERMINE 467967 PHENTERMINE Inactive HCL 37.5 MG for wt. HCL 37.5 MG HCL TABS loss TABS AMARYL 1 MG 1 tab AMARYL 1 MG 433723 GLIMEPIRIDE Inactive TABS twice TABS daily METFORMIN 1 tablet METFORMIN 962002 METFORMIN HCL Inactive HCL 500 MG by mouth HCL 500 MG TABS twice TABS daily SPIRONOLACTO 1 tablet SPIRONOLACT 485451 SPIRONOLACTONE Inactive NE 25 MG TAB by mouth ONE 25 MG daily TAB POTASSIUM 2 capsule POTASSIUM POTASSIUM Inactive CHLORIDE CR by mouth CHLORIDE CR CHLORIDE 10 MEQ CPCR daily 10 MEQ CPCR LISINOPRIL 1 tablet LISINOPRIL 566283 LISINOPRIL Inactive 20 MG TABS by mouth 20 MG TABS daily DIFLUCAN 100 1 tablet DIFLUCAN 191219 FLUCONAZOLE Inactive MG TABS by mouth 100 MG TABS every other day for 2 doses DIFLUCAN 100 1 tablet DIFLUCAN 195287 FLUCONAZOLE Inactive MG TAB by mouth 100 MG TAB daily x 3 days PREDNISONE 2 tablets PREDNISONE 797409 PREDNISONE Inactive 20 MG TAB today, 20 MG TAB then 1 tablet days 2-4 VYVANSE 20 1 tablet VYVANSE 20 LISDEXAMFETAMI Inactive MG ORAL CAPS daily for MG ORAL NE DIMESYLATE binge CAPS eating disorder TRAMADOL HCL 1/2 po TRAMADOL 452532 TRAMADOL HCL Inactive 50 MG TABS tid with HCL 50 MG ES TABS Tylenol prn pain JANUVIA 100 1 tablet JANUVIA 100 SITAGLIPTIN Inactive MG TABS by mouth MG TABS PHOSPHATE daily AMOXICILLIN 2 po BID AMOXICILLIN 246439 AMOXICILLIN Inactive 500 MG CAPS x 10 days 500 MG CAPS PREDNISONE 2 tabs PREDNISONE 293216 PREDNISONE Inactive 20 MG TAB daily for 20 MG TAB 3 days, 1 tab daily for 3 days, 1/2 tab daily for 2 days NITROFURANTO One NITROFURANT 1976639 NITROFURANTOIN Inactive IN MONOHYD capsule OIN MONOHYD [...] HGBA1C - Chemistry sodium, serum 140 mmol/L 406-314 5159/04/13 potassium, serum 3.9 mmol/L 3.5-5.2 chloride, serum [...] 198 10^3/MM^3 10*3/mm3 142-424 Lab Report: Chlamydia/GC APTIMA/76152 - Lab chlamydia DNA probe NOT DETECTED NOT DETECTED Lab Report: Chlamydia/GC APTIMA/56152 - Microbiology Neisseria gonorrhoeae DNA probe NOT DETECTED NOT DETECTED Lab Report: Comp. Metabolic Panel, Lipid Panel - Chemistry sodium, serum 136 mmol/L 440-573 9426/01/04 carbon dioxide, venous blood 27.0 mmol/L 21.0-32.0 potassium, serum 4.6 mmol/L 3.5-5.2 chloride, serum 98 mmol/L 98-107 blood glucose 174 mg/dL 65-110 urea nitrogen, blood 12 mg/dL 7-18 creatinine, serum 0.78 mg/dL 0.55-1.30 alanine aminotransferase (SGPT), serum 65 U/L 12-78 aspartate aminotransferase (SGOT), serum 34 U/L 15-37 calcium, serum 8.9 mg/dL 8.5-10.1 bilirubin, serum, total 0.40 mg/dL 0.00-1.00 cholesterol, serum 219 mg/dL 451-008 2184/01/04 triglyceride, serum, fasting 214 mg/dL 30-200 HDL [...] mg/g mg/g{creat} 0-29 sodium, serum 140 mmol/L 016-347 3891/07/21 potassium, serum 3.9 mmol/L 3.5-5.2 chloride, serum [...] Yes Encounters Code Encounter Date Provider Facility CPT-58591 Level 4 Est. [facility] 17:29:53 LOCOMOTIVE FIRER/FIREMAN MASS COMMUNICATIONS PROFESSOR CPT-01478 Level 4 Est. Patient [facility] 09:51:54 LOCOMOTIVE FIRER/FIREMAN CPT-46607 Level 3 Est. Patient [facility] 18:59:38 CDT CPT-81766 Level 3 Est. Patient Joseph Edwin [facility] 14:42:12 CDT -RHC CPT-62199 Level 3 Est. Patient Joseph Pineda [facility] 22:18:20 CDT -RHC CPT-45291 Level 3 Est. Patient Joseph Edwin [facility] 16:46:04 CDT -RHC CPT-23007 Level 3 Est. Patient Joseph Pineda [facility] 15:39:53 CDT -RHC CPT-60867 Level 3 Est. Patient Maite Sanchez MD [facility] 13:33:34 CDT -RHC CPT-63929 Level 3 Est. Patient Joseph W [facility] 11:37:08 CDT -RHC CPT-48639 Level 3 Est. Patient Joseph Pineda [facility] 17:13:29 LOCOMOTIVE FIRER/FIREMAN -RHC CPT-76075 Level 3 Est. Patient Joseph Edwin [facility] 18:42:44 CDT CPT-56787 Level 3 Est. Patient [place] Edwin [facility] 16:25:39 CDT CPT-43815 Level 3 Est. Patient Casey Garzaner [facility] 09:52:45 CDT -RHC CPT-03390 Level 3 Est. Patient Joseph Edwin [facility] 11:03:29 LOCOMOTIVE FIRER/FIREMAN -RHC CPT-61453 Level 3 Est. Patient [facility] 11:03:08 LOCOMOTIVE FIRER/FIREMAN -RHC CPT-90052 Level 3 Est. Patient [facility] 14:33:31 CDT -RHC CPT-19516 Level 3 Est. Patient [facility] 17:05:02 LOCOMOTIVE FIRER/FIREMAN -RHC CPT-06429 Level 3 Est. Patient [facility] 17:48:06 LOCOMOTIVE FIRER/FIREMAN -RHC CPT-95051 Level 3 Est. Patient [facility] 14:59:22 LOCOMOTIVE FIRER/FIREMAN -RHC CPT-72566 Level 3 Est. Patient [facility] - 21:45:56 LOCOMOTIVE FIRER/FIREMAN Jose RHC CPT-21545 Level 3 Est. Patient [facility] 21:29:50 CDT -RHC CPT-48229 Level 3 Est. Patient [facility] 12:41:09 CDT -RHC Procedures Code Procedure Name Date Entry Date Standard Description CPT-JTINJ Asp/Joint Injection 09:51:53 LOCOMOTIVE FIRER/FIREMAN CPT-OV Office Visit 17:39:05 CDT CPT-OV Office Visit 15:19:50 CDT CPT-44145 Sono transvag pelvis non OB uterus ovaries cervix 18:04:34 T CPT-33538 Venipuncture Draw Fee 08:55:49 LOCOMOTIVE FIRER/FIREMAN
--- OUTSIDE RECORDS SUMMARY | 2016-11-20 13:47 | External Medical Summary | Clinical Summary ---
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 NKDA Critical No Longer Indigo [employer]um COIN MACHINE ASSEMBLER Active NKDA Critical Inactive Adrianna Elder Conditions [...] 311 Active Indigo Depressive chronic 09/20 [employer] COIN MACHINE ASSEMBLER disorder, not elsewhere classified SCABIES 133.0 Resolved Maite Gutierrez Scabies 06/23 Laura ONEAL PhD HYPERTENSION 401.9 Active Joseph Pineda Unspecified 05/24 Farooq DO essential hypertension FATIGUE 780.79 Resolved Indigo Other malaise 05/24 07/02 [employer] COIN MACHINE ASSEMBLER and fatigue SLEEP APNEA, 327.23 Active Joseph Pineda Obstructive OBSTRUCTIVE, 06/27 06/27 Farooq DO sleep apnea MILD (adult) (pediatric) OVERWEIGHT 278.02 Inactive Joseph Pineda Overweight 06/28 06/28 Farooq DO Obesity 278.00 Active Indigo Obesity, 06/28 10/18 [employer] COIN MACHINE ASSEMBLER unspecified OT GENERAL V70.3 Resolved Maite C Other general MEDICAL Laura ONEAL medical EXAMINATION PhD examination for ADMIN administrative PURPOSES purposes OTHER 790.29 Resolved Maite C Other abnormal ABNORMAL 05/20 Laura ONEAL glucose GLUCOSE PhD ACUTE 466.0 Resolved Maite Gutierrez Acute bronchitis BRONCHITIS 09/02 Laura ONEAL PhD DEPENDENT 782.3 Resolved Indigo Edema EDEMA, LEGS, 10/29 10/18 [employer]okum COIN MACHINE ASSEMBLER BILATERAL HYPOKALEMIA, 276.8 Resolved Indigo Hypopotassemia MILD 10/29 07/02 Yo COIN MACHINE ASSEMBLER Diabetes, 250.00 Inactive Joseph Pineda Diabetes Type 2 06/27 06/27 Farooq DO mellitus without mention of complication, type II or unspecified type, not stated as uncontrolled Diabetes 250.02 Resolved Indigo Diabetes mellitus, 06/27 10/18 [employer] COIN MACHINE ASSEMBLER mellitus without type II, mention of uncontrolled [...] Resolved Indigo Routine gynecological 12/14 07/02 Yo COIN MACHINE ASSEMBLER gynecological examination examination Postmenopausa 627.1 Resolved Indigo Postmenopausal l bleeding 12/14 07/02 [employer]um COIN MACHINE ASSEMBLER bleeding Screening for V76.51 Resolved Indigo Screening for malignant 12/26 07/02 [employer] COIN MACHINE ASSEMBLER malignant neoplasms of neoplasms of colon colon Insomnia, 307.42 Active 2015/0 Indigo 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 COIN MACHINE ASSEMBLER disorder of initiating or maintaining sleep Establish V68.89 Resolved Indigo Encounters for care or get 01/16 07/02 [employer] COIN MACHINE ASSEMBLER other specified acquainted administrative visit purpose Weakness, 342.90 Resolved Indigo Hemiplegia, left side of 06/20 10/18 [employer] COIN MACHINE ASSEMBLER unspecified, body affecting unspecified side TIA 435.9 Active Indigo Unspecified 06/20 07/02 [employer] COIN MACHINE ASSEMBLER transient cerebral ischemia Knee pain, 719.46 Active Indigo Pain in joint bilateral 06/20 10/18 [employer]um COIN MACHINE ASSEMBLER involving lower leg Bronchitis 490 Resolved Indigo Bronchitis, not 07/23 10/18 [employer] COIN MACHINE ASSEMBLER specified as acute or chronic Diabetes 357.2 Active Maliheh Polyneuropathy mellitus, 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 APPLICATION SOFTWARE 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 y Knee pain, 719.46 Resolved Indigo Pain in joint right 06/20 09/20 [employer] COIN MACHINE ASSEMBLER involving lower leg Jesi 112.3 Resolved Indigo Candidiasis of intertrigo 10/09 09/20 [employer] COIN MACHINE ASSEMBLER skin and nails Hyperlipidemi 272.4 Active Anne Other and a 12/24 12/24 Neil unspecified RMA hyperlipidemia Incontinence, 788.33 Resolved Indigo Mixed mixed, 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 COIN MACHINE ASSEMBLER incontinence urge/stress (female) (male) Female stress 625.6 Active Yury Monaco Stress incontinence 01/03 01/03 Cy patel MD female Vaginal odor 623.8 Resolved Indigo Other specified 05/28 09/20 [employer] COIN MACHINE ASSEMBLER noninflammatory disorders of vagina Urinary tract 599.0 Resolved Indigo Urinary tract infection 05/28 09/20 [employer]okum COIN MACHINE ASSEMBLER infection, site not specified Urine odor 791.9 Resolved Indigo Other 05/28 09/20 [employer] COIN MACHINE ASSEMBLER nonspecific findings on examination of urine Unspecified Resolved Indigo dyspareunia 08/19 09/20 [employer] COIN MACHINE ASSEMBLER Depression Resolved Indigo 09/20 [employer] COIN MACHINE ASSEMBLER Anxiety Active Indigo Anxiety state, Disorder 08/26 COIN MACHINE ASSEMBLER unspecified ABNORMAL VAGINAL ICD-626.9 Inactive Maite C Laura BLEEDING PhD SCABIES ICD-133.0 Inactive Maite C Laura PhD FATIGUE ICD-780.79 Inactive Indigo Yokum COIN MACHINE ASSEMBLER OTH GENERAL ICD-V70.3 Inactive Maite C Laura MEDICAL MD PhD EXAMINATION ADMIN PURPOSES OTHER ABNORMAL ICD-790.29 Inactive Maite C Ronyril GLUCOSE PhD ACUTE BRONCHITIS ICD-466.0 Inactive Maite C Laura PhD DEPENDENT EDEMA, ICD-782.3 Inactive Indigo Yokum LEGS, BILATERAL COIN MACHINE ASSEMBLER HYPOKALEMIA, MILD ICD-276.8 Inactive Indigo Y[employer]um COIN MACHINE ASSEMBLER Diabetes mellitus, ICD-250.02 Inactive Indigo Yokum type II, COIN MACHINE ASSEMBLER uncontrolled Sinusitis, ICD-461.1 Inactive Ismael Coyne frontal, acute Amandeep ONEAL Laryngitis, acute ICD-464.00 Inactive Ismael Coyne Amandeep ONEAL Routine ICD-V72.31 Inactive Indigo Yokum gynecological COIN MACHINE ASSEMBLER examination Postmenopausal ICD-627.1 Inactive Indigo Yokum 2015 bleeding COIN MACHINE ASSEMBLER Screening for ICD-V76.51 Inactive Indigo Yokum 2015 malignant COIN MACHINE ASSEMBLER neoplasms of colon Establish care or ICD-V68.89 Inactive Indigo Yokum get acquainted COIN MACHINE ASSEMBLER visit Weakness, left ICD-342.90 Inactive Indigo Yokum side of body COIN MACHINE ASSEMBLER Bronchitis ICD-490 Inactive Indigo [employer]um COIN MACHINE ASSEMBLER Knee pain, right ICD-719.46 Inactive Indigo [employer]um COIN MACHINE ASSEMBLER Jesi intertrigo ICD-112.3 Inactive Indigo Yokum COIN MACHINE ASSEMBLER Incontinence, ICD-788.33 Inactive Indigo Yokum 2016 mixed, urge/stress COIN MACHINE ASSEMBLER Vaginal odor ICD-623.8 Inactive Indigo Yokum 09/20 COIN MACHINE ASSEMBLER Urinary tract ICD-599.0 Inactive Indigo Yokum 09/20 infection COIN MACHINE ASSEMBLER Urine odor ICD-791.9 Inactive Indigo Yokum COIN MACHINE ASSEMBLER Unspecified Inactive Indigo Yokum dyspareunia COIN MACHINE ASSEMBLER Depression Inactive Indigo Yokum COIN MACHINE ASSEMBLER Medication List Medication Instructions Start Stop Generic NDC Status Provider Patient Date Date Name Instruction ALPRAZOLAM 3 one p.o. ALPRAZOLAM 10864829140 Active Indigo Active MG [id number] q.h.s. [employer]okum COIN MACHINE ASSEMBLER ABILIFY 10 MG Take one ARIPIPRAZOLE 98267248240 Active Indigo Active ORAL TABS tablet Yokum daily for COIN MACHINE ASSEMBLER depression CELEBREX 200 1 tablet 2 CELECOXIB 24927140111 No Indigo Active MG CAPS by mouth 0 Longer Yokum daily with 1 Active COIN MACHINE ASSEMBLER meals 7 / 0 4 / 2 4 TROKENDI XR 1 tab by 2 TOPIRAMATE 09630671295 No Indigo Active 100 MG ORAL mouth 0 Longer Yokum [id number] daily 1 Active COIN MACHINE ASSEMBLER 7 0 4 VESICARE 10 MG 1 pill by SOLIFENACIN 11660971712 Active J Carlos Enrique Active TABS mouth SUCCINATE [place] daily for MD overactive bladder CIPRO 250 MG 1 tablet 2 CIPROFLOXACIN 84188592957 No Indigo Active TAB by mouth 0 HCL Longer Yokum twice 1 Active COIN MACHINE ASSEMBLER daily 7 METFORMIN HCL 2 tablets 2 METFORMIN HCL 99596405195 No Indigo Active 500 MG TB24 by mouth 0 Longer Yokum twice 1 Active COIN MACHINE ASSEMBLER daily 2 AMARYL 1 MG 1 tablet 2 GLIMEPIRIDE 79546324726 No Indigo Active ORAL TABS orally 0 Longer Yokum twice 1 Active COIN MACHINE ASSEMBLER daily 2 NYSTATIN apply to NYSTATIN 07943140989 Active Indigo Active 230166 UNIT/GM rash TID Yokum CREA PRN COIN MACHINE ASSEMBLER METOPROLOL 1 tab po METOPROLOL 86725742579 Active Indigo Active TARTRATE 25 MG bid TARTRATE Yokum TABS COIN MACHINE ASSEMBLER AZITHROMYCIN 2 po qd x 2 AZITHROMYCIN 78454853410 No Jillina Active 250 MG TABS 1 day, 0 Longer [place] then 1 po 1 Active COIN MACHINE ASSEMBLER qd x 4 6 days / 0 3 / 2 6 PREDNISONE 20 2 pills 2 PREDNISONE 90093019062 No Jillina Active MG TAB daily x 4 0 Longer [place] days 1 Active COIN MACHINE ASSEMBLER 6 / 0 3 / 2 5 PIOGLITAZONE take one a PIOGLITAZONE 40873816498 Active Maliheh Active HCL 30 MG ORAL day HCL Ziglari TABS APPLICATION SOFTWARE DEVELOPER JANUVIA 100 MG 1 tablet 2 SITAGLIPTIN 22483567205 No Indigo Active TABS by mouth 0 PHOSPHATE Longer Yokum daily 1 Active COIN MACHINE ASSEMBLER 6 / 0 2 / 1 6 ATORVASTATIN 1 pill by ATORVASTATIN 08179938778 Active Indigo Active CALCIUM 10 MG mouth CALCIUM Yokum TABS nightly, COIN MACHINE ASSEMBLER for cholestero l ASPIRIN 81 MG 1 po qd ASPIRIN 60756700508 Active Indigo Active ORAL TABS [employer]okum COIN MACHINE ASSEMBLER NITROFURANTOIN One 2 NITROFURANTOIN 81191532311 No Indigo Active MONOHYD MACRO capsule 0 MONOHYD MACRO Longer Yokum 100 MG CAPS BID for 1 Active COIN MACHINE ASSEMBLER UTI 6 / 0 2 / 1 3 TRAMADOL HCL 1/2 po tid 2 TRAMADOL HCL 38787264842 No Jillina Active 50 MG TABS with ES 0 Longer [place] Tylenol 1 Active COIN MACHINE ASSEMBLER prn pain 5 / 0 8 2 VYVANSE 20 MG 1 tablet 2 LISDEXAMFETAMI 39961720339 No Jillina Active ORAL CAPS daily for 0 NE DIMESYLATE Longer [place] binge 1 Active COIN MACHINE ASSEMBLER eating 5 disorder / 0 2 LASIX 20 MG 2 tablet FUROSEMIDE 77229528855 Active Indigo Active TAB by mouth Yokum daily COIN MACHINE ASSEMBLER PREDNISONE 20 2 tablets 2 PREDNISONE 54213468620 No Joseph W Active MG TAB today, 0 Longer Farooq DO then 1 1 Active tablet 5 days 2-4 / 0 4 3 DIFLUCAN 100 1 tablet 2 FLUCONAZOLE 97623188288 No Joseph W Active MG TAB by mouth 0 Longer Farooq DO daily x 3 1 Active days 5 / 0 4 / 3 DIFLUCAN 100 1 tablet 2 FLUCONAZOLE 14886861504 No Joseph W Active MG TABS by mouth 0 Longer Farooq DO every 1 Active other day 5 for 2 / doses 0 1 / 2 3 ZOFRAN 4 MG 1 po q6hr ONDANSETRON 68172058315 Active Joseph W Active TABS PRN Nausea HCL Farooq DO PREDNISONE 20 2 tabs 2 PREDNISONE 54541295667 No Joseph W Active MG TAB daily for 0 Longer Farooq DO 3 days, 1 1 Active tab daily 4 for 3 / days, 1/2 1 tab daily 0 for 2 days / 2 5 AMOXICILLIN 2 po BID x 2 AMOXICILLIN 70346772368 No Maite C Active 500 MG CAPS 10 days 0 Longer Madril 1 Active MD PhD 4 / 1 0 / 2 0 LISINOPRIL 20 1 tablet 2 LISINOPRIL 03924073605 No Maite C Active MG TABS by mouth 0 Longer Madril daily 1 Active MD PhD 4 0 / 1 0 POTASSIUM 2 capsule 2 POTASSIUM 75475800166 No Joseph W Active CHLORIDE CR 10 by mouth 0 CHLORIDE Longer Farooq DO MEQ CPCR daily 1 Active 4 / 0 8 / 2 9 SPIRONOLACTONE 1 tablet 2 SPIRONOLACTONE 42470113346 No Joseph W Active 25 MG TAB by mouth 0 Longer Farooq DO daily 1 Active 4 / 0 8 / 2 9 METFORMIN HCL 1 tablet 2 METFORMIN HCL 84284310382 No Joseph W Active 500 MG TABS by mouth 0 Longer Farooq DO twice 1 Active daily 4 / 0 8 / 2 9 AMARYL 1 MG 1 tab 2 GLIMEPIRIDE 74131376631 No Joseph W Active TABS twice 0 Longer Farooq DO daily 1 Active 4 / 0 8 / 2 9 PHENTERMINE 1 po q am 2 PHENTERMINE 62667603583 No Joseph W Active HCL 37.5 MG for wt. 0 HCL Longer Farooq DO TABS loss 1 Active 3 / 1 2 / 2 3 PROMETHAZINE 1 tab by 2 PROMETHAZINE 76784512624 No Joseph W Active HCL 25 MG TABS mouth 0 HCL Longer Farooq DO every 6 1 Active hours as 3 needed / 0 9 / 0 9 CIPROFLOXACIN Take one 2 CIPROFLOXACIN 27384562615 No Joseph W Active HCL 500 MG (1) tablet 0 HCL Longer Farooq DO TABS by mouth 1 Active twice a 3 day / 0 9 / 0 9 ABILIFY 5 MG one p.o. 2 ARIPIPRAZOLE 01926271583 No Joseph W Active TABS q. day 0 Longer Farooq DO 1 Active 3 / 0 9 / 0 9 HYDROCHLOROTHI 2 tabs 2 HYDROCHLOROTHI 27253006302 No Joseph W Active AZIDE 25 MG every 0 AZIDE Longer Farooq DO TABS morning 1 Active 3 / 0 6 / 2 7 ABILIFY 2 MG 1 po q hs 2 ARIPIPRAZOLE 82606026124 No Joseph W Active TABS for major 0 Longer Farooq DO depression 1 Active 3 / 0 5 / 0 7 ADIPEX-P 37.5 1/2 tab po 2 PHENTERMINE 74455718852 No Casey Active MG CAPS q am for 0 HCL Longer weight 1 Active PA loss 3 / 0 5 / 0 1 CIPRO 500 MG 1 tablet 2 CIPROFLOXACIN 79423369478 No Casey Active TAB by mouth 0 HCL Longer [place] twice 1 Active PA daily 3 / 0 5 / 0 1 NECON 1 po daily 2 NORETHINDRONE- 31307593247 No Casey Active () 1-35 0 ETH ESTRADIOL Longer MG-MCG TABS 1 Active PA 3 / 0 5 / 0 1 TRAMADOL HCL 1 po tid 2 TRAMADOL HCL 66990137870 No Casey Active 50 MG TABS with ES 0 Longer Tylenol 1 Active PA 3 / 0 5 / 0 1 FLUCONAZOLE one p.o. 2 FLUCONAZOLE 27500010755 No Casey Active 100 MG TABS q. day 2 0 Longer days 1 Active PA 3 / 0 5 / 0 1 POTASSIUM 1 capsule 2 POTASSIUM 37717896202 No Casey Active CHLORIDE CR 10 by mouth 0 CHLORIDE Longer MEQ CPCR daily 1 Active PA 3 / 0 5 / 0 1 IMIPRAMINE HCL Take 6 IMIPRAMINE HCL 50473643113 Active Indigo Active 50 MG TABS tablets by Yokum mouth at COIN MACHINE ASSEMBLER bedtime DIFLUCAN 100 1 tablet 2 FLUCONAZOLE 73120838881 No Joseph W Active MG TAB by mouth 0 Longer Farooq DO daily 1 Active 2 / 0 2 / 2 4 VERAPAMIL HCL 2 po bid VERAPAMIL HCL 58253368516 Active Indigo Active CR 120 MG TAB Yokum CR COIN MACHINE ASSEMBLER PERMETHRIN 5 % apply neck 2 PERMETHRIN 30042880018 No Joseph W Active CREA to toes 0 Longer Farooq DO tonight 1 Active and then 2 rinse off / in 0 morning. 1 repeat at / 7 days 2 0 SEROQUEL XR 50 one p.o. 2 QUETIAPINE 84004590882 No Joseph W Active MG [id number] q. evening 0 FUMARATE Longer Farooq DO 1 Active 2 / 0 1 / 2 0 TRAMADOL HCL 1-2 2 TRAMADOL HCL 22965172908 No Joseph W Active 50 MG TABS tablets 0 Longer Farooq DO every 6-8 1 Active hours as 2 needed for / pain 0 1 / 2 0 ALPRAZOLAM XR Take 1 2 ALPRAZOLAM 70443044572 No Joseph W Active [id number] tablet by 0 [id number] Longer Farooq DO mouth at 1 Active bedtime 1 / 2 9 DIFLUCAN 100 1 tablet 2 FLUCONAZOLE 16330150221 No Joseph W Active MG TAB by mouth 0 Longer Farooq DO daily 1 Active 0 / 0 6 AMBIEN 10 MG 1 tab by ZOLPIDEM 58243713882 Active Indigo Active TAB mouth at TARTRATE Yokum bedtime as COIN MACHINE ASSEMBLER needed for sleep DIFLUCAN 100 1 tablet DIFLUCAN 917827 FLUCONAZOLE Inactive MG TAB by mouth 100 MG TAB daily ALPRAZOLAM Take 1 ALPRAZOLAM ALPRAZOLAM Inactive XR [id number] tablet by XR [id number] mouth at [id number] bedtime TRAMADOL HCL 1-2 TRAMADOL 320068 TRAMADOL HCL Inactive 50 MG TABS tablets HCL 50 MG every 6-8 TABS hours as needed for pain SEROQUEL XR one p.o. SEROQUEL XR QUETIAPINE Inactive 50 MG q. 50 MG FUMARATE [id number] evening [id number] PERMETHRIN 5 apply PERMETHRIN 256706 PERMETHRIN Inactive % CREA neck to 5 % CREA toes tonight and then rinse off in morning. repeat at 7 days DIFLUCAN 100 1 tablet DIFLUCAN 726035 FLUCONAZOLE Inactive MG TAB by mouth 100 MG TAB daily POTASSIUM 1 capsule POTASSIUM POTASSIUM Inactive CHLORIDE CR by mouth CHLORIDE CR CHLORIDE 10 MEQ CPCR daily 10 MEQ CPCR FLUCONAZOLE one p.o. FLUCONAZOLE 19760111 FLUCONAZOLE Inactive 100 MG TABS q. day 2 100 MG TABS days TRAMADOL HCL 1 po tid TRAMADOL 047280 TRAMADOL HCL Inactive 50 MG TABS with ES HCL 50 MG Tylenol TABS NECON 35 1 po NECON NORETHINDRONE- Inactive (28) 1-35 daily (28) 1-35 ETH ESTRADIOL MG-MCG TABS MG-MCG TABS CIPRO 500 MG 1 tablet CIPRO 500 588966 CIPROFLOXACIN Inactive TAB by mouth MG TAB HCL twice daily ADIPEX-P 1/2 tab ADIPEX-P 378700 PHENTERMINE Inactive 37.5 MG CAPS po q am 37.5 MG HCL for CAPS weight loss ABILIFY 2 MG 1 po q hs ABILIFY 2 463686 ARIPIPRAZOLE Inactive TABS for major MG TABS depressio n HYDROCHLOROT 2 tabs HYDROCHLORO 332997 HYDROCHLOROTHI Inactive HIAZIDE 25 every THIAZIDE 25 AZIDE MG TABS morning MG TABS ABILIFY 5 MG one p.o. ABILIFY 5 234749 ARIPIPRAZOLE Inactive TABS q. day MG TABS CIPROFLOXACI Take one CIPROFLOXAC 639318 CIPROFLOXACIN Inactive N HCL 500 MG (1) IN HCL 500 HCL TABS tablet by MG TABS mouth twice a day PROMETHAZINE 1 tab by PROMETHAZIN 743281 PROMETHAZINE Inactive HCL 25 MG mouth E HCL 25 MG HCL TABS every 6 TABS hours as needed PHENTERMINE 1 po q am PHENTERMINE 968186 PHENTERMINE Inactive HCL 37.5 MG for wt. HCL 37.5 MG HCL TABS loss TABS AMARYL 1 MG 1 tab AMARYL 1 MG 042141 GLIMEPIRIDE Inactive TABS twice TABS daily METFORMIN 1 tablet METFORMIN 887859 METFORMIN HCL Inactive HCL 500 MG by mouth HCL 500 MG TABS twice TABS daily SPIRONOLACTO 1 tablet SPIRONOLACT 758245 SPIRONOLACTONE Inactive NE 25 MG TAB by mouth ONE 25 MG daily TAB POTASSIUM 2 capsule POTASSIUM POTASSIUM Inactive CHLORIDE CR by mouth CHLORIDE CR CHLORIDE 10 MEQ CPCR daily 10 MEQ CPCR LISINOPRIL 1 tablet LISINOPRIL 910471 LISINOPRIL Inactive 20 MG TABS by mouth 20 MG TABS daily DIFLUCAN 100 1 tablet DIFLUCAN 851442 FLUCONAZOLE Inactive MG TABS by mouth 100 MG TABS every other day for 2 doses DIFLUCAN 100 1 tablet DIFLUCAN 557185 FLUCONAZOLE Inactive MG TAB by mouth 100 MG TAB daily x 3 days PREDNISONE 2 tablets PREDNISONE 768560 PREDNISONE Inactive 20 MG TAB today, 20 MG TAB then 1 tablet days 2-4 VYVANSE 20 1 tablet VYVANSE 20 LISDEXAMFETAMI Inactive MG ORAL CAPS daily for MG ORAL NE DIMESYLATE binge CAPS eating disorder TRAMADOL HCL 1/2 po TRAMADOL 842628 TRAMADOL HCL Inactive 50 MG TABS tid with HCL 50 MG ES TABS Tylenol prn pain JANUVIA 100 1 tablet JANUVIA 100 SITAGLIPTIN Inactive MG TABS by mouth MG TABS PHOSPHATE daily AMARYL 1 MG 1 tablet AMARYL 1 MG 043288 GLIMEPIRIDE Inactive ORAL TABS orally ORAL TABS twice daily METFORMIN 2 tablets METFORMIN METFORMIN HCL Inactive HCL 500 MG by mouth HCL 500 MG TB24 twice TB24 daily TROKENDI XR 1 tab by TROKENDI XR TOPIRAMATE Inactive 100 MG ORAL mouth 100 MG ORAL [id number] daily [id number] CELEBREX 200 1 tablet CELEBREX 244751 CELECOXIB Inactive MG CAPS by mouth 200 MG CAPS daily with meals AMOXICILLIN 2 po BID AMOXICILLIN 668878 AMOXICILLIN Inactive 500 MG CAPS x 10 days 500 MG CAPS PREDNISONE 2 tabs PREDNISONE 026563 PREDNISONE Inactive 20 MG TAB daily for 20 MG TAB 3 days, 1 tab daily for 3 days, 1/2 tab daily for 2 days NITROFURANTO One NITROFURANT 3738089 NITROFURANTOIN Inactive IN MONOHYD capsule OIN MONOHYD MONOHYD MACRO MACRO 100 MG BID for MACRO 100 CAPS UTI MG CAPS PREDNISONE 2 pills PREDNISONE 729676 PREDNISONE Inactive 20 MG TAB daily x 4 20 MG TAB days AZITHROMYCIN 2 po qd x AZITHROMYCI 9352148 AZITHROMYCIN Inactive 250 MG TABS 1 day, N 250 MG then 1 po TABS qd x 4 days CIPRO 250 MG 1 tablet CIPRO 250 731466 CIPROFLOXACIN Inactive TAB by mouth MG TAB [...] Panel - Chemistry sodium, serum 143 mmol/L 102-613 0124/06/05 carbon dioxide, venous blood 30.4 mmol/L 21.0-32.0 [...] 6.0 % 4.3-6.0 cholesterol, serum 176 mg/dL 756-287 9019/06/05 triglyceride, serum, fasting 41 mg/dL 30-200 HDL [...] 152 10^3/MM^3 10*3/mm3 142-424 Lab Report: Chlamydia/GC APTIMA/[id number] - Lab chlamydia DNA probe NOT DETECTED NOT DETECTED Lab Report: Chlamydia/GC APTIMA/[id number] - Microbiology Neisseria gonorrhoeae DNA probe NOT DETECTED NOT DETECTED Lab Report: Lipid Panel - Chemistry cholesterol, serum 157 mg/dL 584-188 9110/08/22 triglyceride, serum, fasting 215 mg/dL 30-200 HDL [...] negative Encounters Code Encounter Date Provider Facility CPT-04827 Level 4 Est. Patient Indigo Carlie [facility] - 16:58:20 CDT [place] CPT-22212 Level 3 Est. Patient Yury Benoit MD [facility] 17:20:07 CDT CPT-74957 Level 4 Est. Patient [facility] - 17:02:40 MOBILE UNIT ASSISTANT [place] CPT-65951 Level 4 New Patient Yury Benoit MD [facility] 15:17:12 CDT CPT-97259 Level 3 Est. Patient [facility] - 13:37:46 CDT [place] CPT-44167 Level 4 Est. Patient [facility] - 10:01:06 CDT [place] CPT-22634 Level 3 Est. Patient [facility] 08:58:07 CDT APPLICATION SOFTWARE DEVELOPER CPT-40471 Level 3 Est[facility] COIN MACHINE ASSEMBLER CPT-02860 Level 4 Est. Patient [facility] 17:29:53 MOBILE UNIT ASSISTANT APPLICATION SOFTWARE DEVELOPER CPT-92633 Level 4 Est. Patient [facility] 09:51:54 MOBILE UNIT ASSISTANT CPT-23763 Level 3 Est. Patient [facility] 18:59:38 CDT CPT-44902 Level 3 Est. Patient Joseph Pineda [facility] 14:42:12 CDT -[facility] CPT-32064 Level 3 Est. Patient Joseph Pineda [facility] 22:18:20 CDT -[facility] CPT-81978 Level 3 Est. Patient Joseph Pineda [facility] 16:46:04 CDT -[facility] CPT-08186 Level 3 Est. Patient Joseph Pineda [facility] 15:39:53 CDT -[facility] CPT-06065 Level 3 Est. Patient Maite Sanchez MD [facility] 13:33:34 CDT -[facility] CPT-36155 Level 3 Est. Patient Joseph Edwin [facility] 11:37:08 CDT -[facility] CPT-53545 Level 3 Est. Patient Joseph Edwin [facility] 17:13:29 MOBILE UNIT ASSISTANT -[facility] CPT-32991 Level 3 Est. Patient Joseph Edwin [facility] 18:42:44 CDT CPT-65493 Level 3 Est. Patient Augusta Edwin [facility] 16:25:39 CDT CPT-29192 Level 3 Est. Patient Casey Brower [facility] 09:52:45 CDT -[facility] CPT-47431 Level 3 Est. Patient [facility] 11:03:29 MOBILE UNIT ASSISTANT -[facility] CPT-51134 Level 3 Est. Patient Joseph Edwin [facility] 11:03:08 MOBILE UNIT ASSISTANT -[facility] CPT-13105 Level 3 Est. Patient Joseph Edwin [facility] 14:33:31 CDT -[facility] CPT-83433 Level 3 Est. Patient Joseph Edwin [facility] 17:05:02 MOBILE UNIT ASSISTANT -[facility] CPT-32608 Level 3 Est. Patient [facility] 17:48:06 MOBILE UNIT ASSISTANT -[facility] CPT-72294 Level 3 Est. Patient [facility] 14:59:22 MOBILE UNIT ASSISTANT -R[facility] CPT-20210 Level 3 Est. Patient [facility] - 21:45:56 MOBILE UNIT ASSISTANT [place] [facility] CPT-18732 Level 3 Est. Patient Joseph Trivedi [facility] 21:29:50 CDT -[facility] CPT-55895 Level 3 Est. Patient Joseph Trivedi [facility] 12:41:09 CDT -[facility] Procedures Code Procedure Name Date Entry Date Standard Description CPT-41497 Wet Mount - LAB USE ONLY 12:39:03 MOBILE UNIT ASSISTANT CPT-03003 Vaginal Culture - LAB USE ONLY 12:39:03 MOBILE UNIT ASSISTANT CPT-95466 Urine Culture - LAB USE ONLY 11:52:44 MOBILE UNIT ASSISTANT CPT-13594 UA w micro - LAB USE ONLY 11:52:44 MOBILE UNIT ASSISTANT CPT-02594 Postop F/U Visit 12:08:35 CDT CPT-05684 Postop F/U Visit 18:20:10 CDT CPT-A4351 [facility] Female Cath 09:37:10 CDT CPT-95688 Urine Dip (Floor Use Only) 15:17:13 CDT CPT-42711 Dil F ureth int 15:17:13 CDT CPT-52498 Venipuncture Draw Fee 09:19:08 CDT CPT-62766 Lipid - LAB USE ONLY 09:19:07 CDT CPT-JTINJ Asp/Joint Injection 09:26:49 CDT CPT-26073 Chest 2V Frontal and Lat 14:47:43 CDT CPT-JTINJ Asp/Joint Injection 09:51:53 MOBILE UNIT ASSISTANT CPT-OV Office Visit 17:39:05 CDT CPT-OV Office Visit 15:19:50 CDT CPT-97891 Sono transvag pelvis non OB uterus ovaries cervix 18:04:34 CDT CPT-41589 Venipuncture Draw Fee 08:55:49 MOBILE UNIT ASSISTANT
--- OUTSIDE RECORDS SUMMARY | 2016-11-20 13:47 | External Medical Summary | Clinical Summary ---
:1965 Author Organization [facility] [employer] Address [address] [address] Phone Allergies, Adverse Reactions, Alerts Allergy Name Reaction Description Start Date Severity Status Provider NKDA Critical Active Indigo Yonickieum PYTHON DJANGO DEVELOPER NKDA Critical No Longer Indigo Yokum PYTHON DJANGO DEVELOPER Active NKDA Critical Inactive Adrianna Elder [...] Resolved Indigo Other malaise 05/24 07/02 Yokum PYTHON DJANGO DEVELOPER and fatigue SLEEP APNEA, 327.23 Active Joseph Pineda Obstructive OBSTRUCTIVE, 06/27 06/27 Farooq DO sleep apnea MILD (adult) (pediatric) OVERWEIGHT 278.02 Inactive Joseph Pineda Overweight 06/28 06/28 Farooq DO Obesity 278.00 Active Indigo Obesity, 06/28 10/18 Yokum PYTHON DJANGO DEVELOPER unspecified OTH GENERAL V70.3 Resolved Maite Gutierrez Other general MEDICAL Laura ONEAL medical EXAMINATION PhD examination for ADMIN PURPOSES administrative purposes OTHER ABNORMAL 790.29 Resolved Maite C Other abnormal GLUCOSE 05/20 Laura ONEAL glucose PhD ACUTE 466.0 Resolved Maite C Acute BRONCHITIS 09/02 Laura ONEAL bronchitis PhD DEPENDENT 782.3 Resolved Indigo Edema EDEMA, LEGS, 10/29 10/18 Yokum PYTHON DJANGO DEVELOPER BILATERAL HYPOKALEMIA, 276.8 Resolved Indigo Hypopotassemia MILD 10/29 07/02 Youm PYTHON DJANGO DEVELOPER Diabetes, Type 250.00 Inactive Joseph Pineda Diabetes 2 06/27 06/27 Farooq DO mellitus without mention of complication, type II or unspecified type, not stated as uncontrolled Diabetes 250.02 Resolved Indigo Diabetes mellitus, type 06/27 PYTHON DJANGO DEVELOPER mellitus II, without mention uncontrolled of complication, [...] Resolved Indigo Routine gynecological 12/14 07/02 Yo PYTHON DJANGO DEVELOPER gynecological examination examination Postmenopausal 627.1 Resolved Indigo Postmenopausal bleeding 12/14 PYTHON DJANGO DEVELOPER bleeding Screening for V76.51 Resolved Indigo Screening for malignant 12/26 07/02 Yokum PYTHON DJANGO DEVELOPER malignant neoplasms of neoplasms of colon colon Insomnia, 307.42 Active Indigo 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 PYTHON DJANGO DEVELOPER disorder of initiating or maintaining sleep Establish care V68.89 Resolved Indigo Encounters for or get 01/16 07/02 Yo PYTHON DJANGO DEVELOPER other specified acquainted administrative visit purpose Weakness, left 342.90 Resolved Indgio Hemiplegia, side of body 06/20 10/18 Yokum PYTHON DJANGO DEVELOPER unspecified, affecting unspecified side TIA 435.9 Active Indigo Unspecified 06/20 07/02 Yokum PYTHON DJANGO DEVELOPER transient cerebral ischemia Knee pain, 719.46 Active Indigo Pain in joint bilateral 06/20 10/18 Yokum PYTHON DJANGO DEVELOPER involving lower leg Bronchitis 490 Resolved Indigo Bronchitis, not 07/23 10/18 Yokum PYTHON DJANGO DEVELOPER specified as acute or chronic Diabetes 357.2 Active Maliheh Polyneuropathy mellitus, 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[facility] 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y Knee pain, 719.46 Active Indigo Pain in joint right 06/20 10/18 Yokum PYTHON DJANGO DEVELOPER involving lower leg Jesi 112.3 Active Indigo Candidiasis of intertrigo 10/09 10/18 Yokum PYTHON DJANGO DEVELOPER skin and nails Hyperlipidemia 272.4 Active Anne Other and 12/24 12/24 Neil unspecified RMA hyperlipidemia Incontinence, 788.33 Active Indigo Mixed mixed, 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 PYTHON DJANGO DEVELOPER incontinence urge/stress (female) (male) Female stress 625.6 Active Yury AnthonyCarlos Enrique Stress incontinence 01/03 01/03 Cy patel MD female ABNORMAL VAGINAL ICD-626.9 Inactive Maite Sanchez BLEEDING PhD SCABIES ICD-133.0 Inactive Maite Sanchez PhD FATIGUE ICD-780.79 Inactive Indigo Yokum PYTHON DJANGO DEVELOPER OTH GENERAL ICD-V70.3 Inactive Maite Sanchez MEDICAL PhD EXAMINATION ADMIN PURPOSES OTHER ABNORMAL ICD-790.29 Inactive Maite Sanchez GLUCOSE PhD ACUTE BRONCHITIS ICD-466.0 Inactive Maite Matt Sanchez PhD DEPENDENT EDEMA, ICD-782.3 Inactive Indigo Yokum LEGS, BILATERAL PYTHON DJANGO DEVELOPER HYPOKALEMIA, MILD ICD-276.8 Inactive Indigo Yokum PYTHON DJANGO DEVELOPER Diabetes mellitus, ICD-250.02 Inactive Indigo Yokum type II, PYTHON DJANGO DEVELOPER uncontrolled Sinusitis, ICD-461.1 Inactive Ismael Coyne frontal, acute Amandeep ONEAL Laryngitis, acute ICD-464.00 Inactive Ismael Coyne Amandeep ONEAL Routine ICD-V72.31 Inactive Indigo Yokum gynecological PYTHON DJANGO DEVELOPER examination Postmenopausal ICD-627.1 Inactive Indigo Yokum 2015 bleeding PYTHON DJANGO DEVELOPER Screening for ICD-V76.51 Inactive Indigo Yokum 2015 malignant PYTHON DJANGO DEVELOPER neoplasms of colon Establish care or ICD-V68.89 Inactive Indigo Yokum get acquainted PYTHON DJANGO DEVELOPER visit Weakness, left ICD-342.90 Inactive Indigo Yokum side of body PYTHON DJANGO DEVELOPER Bronchitis ICD-490 Inactive Indigo Yokum PYTHON DJANGO DEVELOPER Medication List Medication Instructions Start Stop Generic NDC Status Provider Patient Date Date Name Instruction METFORMIN 2 tablets METFORMIN 87079469955 No Indigo Active HCL 500 MG by mouth HCL Longer Yokum TB24 twice Active PYTHON DJANGO DEVELOPER daily AMARYL 1 MG 1 tablet GLIMEPIRID 45687600439 No Indigo Active ORAL TABS orally E Longer Yokum twice Active PYTHON DJANGO DEVELOPER daily NYSTATIN apply to NYSTATIN 27309352876 Active Indigo Active 177449 rash TID Yokum UNIT/GM PRN PYTHON DJANGO DEVELOPER CREA TROKENDI XR 2 tab TOPIRAMATE 07697520644 Active Malihe Active 100 MG ORAL daily h [id number] Ziglar i [facility]ANGER METOPROLOL 1 tab po METOPROLOL 22859114709 Active Indigo Active TARTRATE 25 bid TARTRATE Yokum MG TABS PYTHON DJANGO DEVELOPER AZITHROMYCI 2 po qd x AZITHROMYC 73598967190 No Jillin Active N 250 MG 1 day, IN Longer a TABS then 1 po Active Frazel qd x 4 l PYTHON DJANGO DEVELOPER days PREDNISONE 2 pills PREDNISONE 72884427458 No Jillin Active 20 MG TAB daily x 4 Longer a days Active Frazel l PYTHON DJANGO DEVELOPER PIOGLITAZON take one PIOGLITAZO 58768168224 Active Malihe Active E HCL 30 MG a day NE HCL h ORAL TABS Ziglar i MUSTANGER JANUVIA 100 1 tablet SITAGLIPTI 15135175277 No Indigo Active MG TABS by mouth N Longer Yokum daily PHOSPHATE Active PYTHON DJANGO DEVELOPER ATORVASTATI 1 pill by ATORVASTAT 41663140039 Active Indigo Active N CALCIUM mouth IN CALCIUM Yokum 10 MG TABS nightly, PYTHON DJANGO DEVELOPER for cholester ol ASPIRIN 81 1 po qd ASPIRIN 47360744206 Active Indigo Active MG ORAL Yokum TABS PYTHON DJANGO DEVELOPER NITROFURANT One NITROFURAN 17335018370 No Indigo Active OIN MONOHYD capsule TOIN Longer Yokum MACRO 100 BID for MONOHYD Active PYTHON DJANGO DEVELOPER MG CAPS UTI MACRO TRAMADOL 1/2 po TRAMADOL 62503431207 No Jillin Active HCL 50 MG tid with HCL Longer a TABS ES Active Frazel Tylenol l PYTHON DJANGO DEVELOPER prn pain VYVANSE 20 1 tablet LISDEXAMFE 36305042665 No Jillin Active MG ORAL daily for TAMINE Longer a CAPS binge DIMESYLATE Active Frazel eating l PYTHON DJANGO DEVELOPER disorder LASIX 20 MG 2 tablet FUROSEMIDE 24168474353 Active Indigo Active TAB by mouth Yokum daily PYTHON DJANGO DEVELOPER CELEBREX 1 tablet CELECOXIB 57100703114 Active Indigo Active 200 MG CAPS by mouth Yokum daily PYTHON DJANGO DEVELOPER with meals PREDNISONE 2 tablets PREDNISONE 31417195004 No Joseph Active 20 MG TAB today, Longer W Farooq then 1 Active DO tablet days 2-4 DIFLUCAN 1 tablet FLUCONAZOL 40162348728 No Joseph Active 100 MG TAB by mouth E Longer W Farooq daily x 3 Active DO days DIFLUCAN 1 tablet FLUCONAZOL 94833780053 No Joseph Active 100 MG TABS by mouth E Longer W Farooq every Active DO other day for 2 doses ZOFRAN 4 MG 1 po q6hr ONDANSETRO 66890331834 Active Joseph Active TABS PRN N HCL W Farooq Nausea DO PREDNISONE 2 tabs PREDNISONE 80740958926 No Joseph Active 20 MG TAB daily for Longer W Farooq 3 days, 1 Active DO tab daily for 3 days, 1/2 tab daily for 2 days AMOXICILLIN 2 po BID AMOXICILLI 75315193072 No Maite C Active 500 MG CAPS x 10 days N Longer Madril Active PhD LISINOPRIL 1 tablet LISINOPRIL 90298595370 No Maite C Active 20 MG TABS by mouth Longer Madril daily Active PhD POTASSIUM 2 capsule POTASSIUM 76438450392 No Joseph Active CHLORIDE CR by mouth CHLORIDE Longer W Farooq 10 MEQ CPCR daily Active DO SPIRONOLACT 1 tablet SPIRONOLAC 76261655484 No Joseph Active ONE 25 MG by mouth TONE Longer W Farooq TAB daily Active DO METFORMIN 1 tablet METFORMIN 82999976796 No Joseph Active HCL 500 MG by mouth HCL Longer W Farooq TABS twice Active DO daily AMARYL 1 MG 1 tab GLIMEPIRID 83612023109 No Joseph Active TABS twice E Longer W Farooq daily Active DO PHENTERMINE 1 po q am PHENTERMIN 31616565263 No Joseph Active HCL 37.5 MG for wt. E HCL Longer W Farooq TABS loss Active DO PROMETHAZIN 1 tab by PROMETHAZI 51305396363 No Joseph Active E HCL 25 MG mouth NE HCL Longer W Farooq TABS every 6 Active DO hours as needed CIPROFLOXAC Take one CIPROFLOXA 82147508758 No Joseph Active IN HCL 500 (1) DELORES HCL Longer W Farooq MG TABS tablet by Active DO mouth twice a day ABILIFY 5 one p.o. ARIPIPRAZO 66109145353 No Joseph Active MG TABS q. day LE Longer W Farooq Active DO HYDROCHLORO 2 tabs HYDROCHLOR 26821154916 No Joseph Active THIAZIDE 25 every OTHIAZIDE Longer W Farooq MG TABS morning Active DO ABILIFY 2 1 po q hs ARIPIPRAZO 84326315824 No Joseph Active MG TABS for major LE Longer W Farooq depressio Active DO n ADIPEX-P 1/2 tab PHENTERMIN 59768253760 No Casey Active 37.5 MG po q am E HCL Longer Leonarda CAPS for Active PA weight loss CIPRO 500 1 tablet CIPROFLOXA 71043718615 No Casey Active MG TAB by mouth DELORES HCL Longer Leonarda twice Active PA daily NECON 1/35 1 po NORETHINDR 18816889290 No Casey Active (28) 1-35 daily ONE-ETH Longer Leonarda MG-MCG TABS ESTRADIOL Active PA TRAMADOL 1 po tid TRAMADOL 89854962762 No Casey Active HCL 50 MG with ES HCL Longer Leonarda TABS Tylenol Active PA FLUCONAZOLE one p.o. FLUCONAZOL 57685874203 No Casey Active 100 MG TABS q. day 2 E Longer Leonarda days Active PA POTASSIUM 1 capsule POTASSIUM 42694089545 No Casey Active CHLORIDE CR by mouth CHLORIDE Longer 10 MEQ CPCR daily Active PA IMIPRAMINE Take 6 IMIPRAMINE 26523118116 Active Indigo Active HCL 50 MG tablets HCL Yokum TABS by mouth PYTHON DJANGO DEVELOPER at bedtime DIFLUCAN 1 tablet FLUCONAZOL 81118264063 No Joseph Active 100 MG TAB by mouth E Longer W Farooq daily Active DO VERAPAMIL 2 po bid VERAPAMIL 55804545348 Active Indigo Active HCL CR 120 HCL Yokum MG TAB CR PYTHON DJANGO DEVELOPER PERMETHRIN apply PERMETHRIN 24763707206 No Joseph Active 5 % CREA neck to Longer W Farooq toes Active DO tonight and then rinse off in morning. repeat at 7 days SEROQUEL XR one p.o. QUETIAPINE 70683072528 No Joseph Active 50 MG q. FUMARATE Longer W Farooq [id number] evening Active DO TRAMADOL 1-2 TRAMADOL 29720289672 No Joseph Active HCL 50 MG tablets HCL Longer W Farooq TABS every 6-8 Active DO hours as needed for pain ALPRAZOLAM one p.o. ALPRAZOLAM 83854496371 Active Indigo Active 3 MG q.h.s. Yokum [id number] PYTHON DJANGO DEVELOPER ALPRAZOLAM Take 1 ALPRAZOLAM 23703869789 No Joseph Active XR tablet by [id number] Longer W Farooq [id number] mouth at Active DO bedtime DIFLUCAN 1 tablet FLUCONAZOL 47388422939 No Joseph Active 100 MG TAB by mouth E Longer W Farooq daily Active DO AMBIEN 10 1 tab by ZOLPIDEM 57313168512 Active Indigo Active MG TAB mouth at TARTRATE Yokum bedtime PYTHON DJANGO DEVELOPER as needed for sleep DIFLUCAN 100 1 tablet DIFLUCAN 203383 FLUCONAZOLE Inactive MG TAB by mouth 100 MG TAB daily ALPRAZOLAM Take 1 ALPRAZOLAM ALPRAZOLAM Inactive XR [id number] tablet by XR [id number] mouth at [id number] bedtime TRAMADOL HCL 1-2 TRAMADOL 023703 TRAMADOL HCL Inactive 50 MG TABS tablets HCL 50 MG every 6-8 TABS hours as needed for pain SEROQUEL XR one p.o. SEROQUEL XR QUETIAPINE Inactive 50 MG q. 50 MG FUMARATE [id number] evening [id number] PERMETHRIN 5 apply PERMETHRIN 376228 PERMETHRIN Inactive % CREA neck to 5 % CREA toes tonight and then rinse off in morning. repeat at 7 days DIFLUCAN 100 1 tablet DIFLUCAN 188195 FLUCONAZOLE Inactive MG TAB by mouth 100 MG TAB daily POTASSIUM 1 capsule POTASSIUM POTASSIUM Inactive CHLORIDE CR by mouth CHLORIDE CR CHLORIDE 10 MEQ CPCR daily 10 MEQ CPCR FLUCONAZOLE one p.o. FLUCONAZOLE 197560 FLUCONAZOLE Inactive 100 MG TABS q. day 2 100 MG TABS days TRAMADOL HCL 1 po tid TRAMADOL 985072 TRAMADOL HCL Inactive 50 MG TABS with ES HCL 50 MG Tylenol TABS NECON 1/35 1 po NECON 1/35 NORETHINDRONE- Inactive (28) 1-35 daily (28) 1-35 ETH ESTRADIOL MG-MCG TABS MG-MCG TABS CIPRO 500 MG 1 tablet CIPRO 500 864739 CIPROFLOXACIN Inactive TAB by mouth MG TAB HCL twice daily ADIPEX-P 1/2 tab ADIPEX-P 697309 PHENTERMINE Inactive 37.5 MG CAPS po q am 37.5 MG HCL for CAPS weight loss ABILIFY 2 MG 1 po q hs ABILIFY 2 913955 ARIPIPRAZOLE Inactive TABS for major MG TABS depressio n HYDROCHLOROT 2 tabs HYDROCHLORO 809034 HYDROCHLOROTHI Inactive HIAZIDE 25 every THIAZIDE 25 AZIDE MG TABS morning MG TABS ABILIFY 5 MG one p.o. ABILIFY 5 146563 ARIPIPRAZOLE Inactive TABS q. day MG TABS CIPROFLOXACI Take one CIPROFLOXAC 028427 CIPROFLOXACIN Inactive N HCL 500 MG (1) IN HCL 500 HCL TABS tablet by MG TABS mouth twice a day PROMETHAZINE 1 tab by PROMETHAZIN 263772 PROMETHAZINE Inactive HCL 25 MG mouth E HCL 25 MG HCL TABS every 6 TABS hours as needed PHENTERMINE 1 po q am PHENTERMINE 123465 PHENTERMINE Inactive HCL 37.5 MG for wt. HCL 37.5 MG HCL TABS loss TABS AMARYL 1 MG 1 tab AMARYL 1 MG 192566 GLIMEPIRIDE Inactive TABS twice TABS daily METFORMIN 1 tablet METFORMIN 846106 METFORMIN HCL Inactive HCL 500 MG by mouth HCL 500 MG TABS twice TABS daily SPIRONOLACTO 1 tablet SPIRONOLACT 215544 SPIRONOLACTONE Inactive NE 25 MG TAB by mouth ONE 25 MG daily TAB POTASSIUM 2 capsule POTASSIUM POTASSIUM Inactive CHLORIDE CR by mouth CHLORIDE CR CHLORIDE 10 MEQ CPCR daily 10 MEQ CPCR LISINOPRIL 1 tablet LISINOPRIL 599272 LISINOPRIL Inactive 20 MG TABS by mouth 20 MG TABS daily DIFLUCAN 100 1 tablet DIFLUCAN 19760111 FLUCONAZOLE Inactive MG TABS by mouth 100 MG TABS every other day for 2 doses DIFLUCAN 100 1 tablet DIFLUCAN 167488 FLUCONAZOLE Inactive MG TAB by mouth 100 MG TAB daily x 3 days PREDNISONE 2 tablets PREDNISONE 999722 PREDNISONE Inactive 20 MG TAB today, 20 MG TAB then 1 tablet days 2-4 VYVANSE 20 1 tablet VYVANSE 20 LISDEXAMFETAMI Inactive MG ORAL CAPS daily for MG ORAL NE DIMESYLATE binge CAPS eating disorder TRAMADOL HCL 1/2 po TRAMADOL 312686 TRAMADOL HCL Inactive 50 MG TABS tid with HCL 50 MG ES TABS Tylenol prn pain JANUVIA 100 1 tablet JANUVIA 100 SITAGLIPTIN Inactive MG TABS by mouth MG TABS PHOSPHATE daily AMARYL 1 MG 1 tablet AMARYL 1 MG 989638 GLIMEPIRIDE Inactive ORAL TABS orally ORAL TABS twice daily METFORMIN 2 tablets METFORMIN METFORMIN HCL Inactive HCL 500 MG by mouth HCL 500 MG TB24 twice TB24 daily AMOXICILLIN 2 po BID AMOXICILLIN 607810 AMOXICILLIN Inactive 500 MG CAPS x 10 days 500 MG CAPS PREDNISONE 2 tabs PREDNISONE 130837 PREDNISONE Inactive 20 MG TAB daily for 20 MG TAB 3 days, 1 tab daily for 3 days, 1/2 tab daily for 2 days NITROFURANTO One NITROFURANT 8706485 NITROFURANTOIN Inactive IN MONOHYD capsule OIN MONOHYD MONOHYD MACRO MACRO 100 MG BID for MACRO 100 CAPS UTI MG CAPS PREDNISONE 2 pills PREDNISONE 182681 PREDNISONE Inactive 20 MG TAB daily x 4 20 MG TAB days AZITHROMYCIN 2 po qd x AZITHROMYCI 8353178 AZITHROMYCIN Inactive 250 MG TABS 1 day, [...] HGBA1C - Chemistry sodium, serum 140 mmol/L 899-298 0840/06/03 potassium, serum 3.9 mmol/L 3.5-5.2 chloride, serum [...] Panel - Chemistry sodium, serum 136 mmol/L 819-185 7859/01/04 carbon dioxide, venous blood 27.0 mmol/L 21.0-32.0 potassium, serum 4.6 mmol/L 3.5-5.2 chloride, serum 98 mmol/L 98-107 blood glucose 174 mg/dL 65-110 urea nitrogen, blood 12 mg/dL 7-18 creatinine, serum 0.78 mg/dL 0.55-1.30 alanine aminotransferase (SGPT), serum 65 U/L 12-78 aspartate aminotransferase (SGOT), serum 34 U/L 15-37 calcium, serum 8.9 mg/dL 8.5-10.1 bilirubin, serum, total 0.40 mg/dL 0.00-1.00 cholesterol, serum 219 mg/dL 479-380 3464/01/04 triglyceride, serum, fasting 214 mg/dL 30-200 HDL cholesterol, serum 39 mg/dL 32-96 LDL cholesterol, serum 137 mg/dL 0-130 Lab Report: Lipid Panel - Chemistry cholesterol, serum 157 mg/dL 294-312 0064/08/22 triglyceride, serum, fasting 215 mg/dL 30-200 HDL [...] mg/dL Encounters Code Encounter Date Provider Facility CPT-92452 Level 4 New Patient Yury Benoit MD [facility] 15:17:12 CDT CPT-07837 Level 3 Est. Patient [facility] - 13:37:46 CDT [place] CPT-86973 Level 4 Est. Patient [facility] - 10:01:06 CDT [place] CPT-15563 Level 3 Est. Patient [facility] 08:58:07 CDT [facility] CPT-10516 Level 3 Est[facility] CPT-32858 Level 4 Est. Patient [facility] 17:29:53 COLOR TELEVISION CONSOLE MONITOR [facility] CPT-71870 Level 4 Est. Patient [facility] 09:51:54 COLOR TELEVISION CONSOLE MONITOR CPT-18328 Level 3 Est. Patient [facility] 18:59:38 CDT CPT-36447 Level 3 Est. Patient Joseph Pineda [facility] 14:42:12 CDT -[facility] CPT-87635 Level 3 Est. Patient Joseph Pineda [facility] 22:18:20 CDT -[facility] CPT-05894 Level 3 Est. Patient Joseph Edwin [facility] 16:46:04 CDT -[facility] CPT-52942 Level 3 Est. Patient Joseph Edwin [facility] 15:39:53 CDT -[facility] CPT-50337 Level 3 Est. Patient Maite Sanchez MD [facility] 13:33:34 CDT -[facility] CPT-61313 Level 3 Est. Patient Joseph Pineda [facility] 11:37:08 CDT -[facility] CPT-64537 Level 3 Est. Patient Joseph Pineda [facility] 17:13:29 COLOR TELEVISION CONSOLE MONITOR -[facility] CPT-97300 Level 3 Est. Patient Joseph Pineda [facility] 18:42:44 CDT CPT-39084 Level 3 Est. Patient [place] [facility] 16:25:39 CDT CPT-43106 Level 3 Est. Patient Casey Brower [facility] 09:52:45 CDT -[facility] CPT-18683 Level 3 Est. Patient Joseph Pineda [facility] 11:03:29 COLOR TELEVISION CONSOLE MONITOR -[facility] CPT-11139 Level 3 Est. Patient Joseph Edwin [facility] 11:03:08 COLOR TELEVISION CONSOLE MONITOR -[facility]HC CPT-71872 Level 3 Est. Patient [place] [facility] 14:33:31 CDT -[facility] CPT-05699 Level 3 Est. Patient Joseph Edwin [facility] 17:05:02 COLOR TELEVISION CONSOLE MONITOR -[facility]HC CPT-93817 Level 3 Est. Patient [place] [facility] 17:48:06 COLOR TELEVISION CONSOLE MONITOR -RHC CPT-12954 Level 3 Est. Patient Joseph Edwin [facility] 14:59:22 COLOR TELEVISION CONSOLE MONITOR -RHC CPT-57986 Level 3 Est. Patient [place] [facility] - 21:45:56 COLOR TELEVISION CONSOLE MONITOR Jose [facility] CPT-54379 Level 3 Est. Patient Joseph Edwin [facility] 21:29:50 CDT -[facility] CPT-35315 Level 3 Est. Patient [facility] 12:41:09 CDT -[facility] Procedures Code Procedure Name Date Entry Date Standard Description CPT-A4351 Coloplast Female Cath 09:37:10 CDT CPT-22685 Urine Dip (Floor Use Only) 15:17:13 CDT CPT-98071 Dil F ureth int 15:17:13 CDT CPT-99124 Venipuncture Draw Fee 09:19:08 CDT CPT-94902 Lipid - LAB USE ONLY 09:19:07 CDT CPT-JTINJ Asp/Joint Injection 09:26:49 CDT CPT-57946 Chest 2V Frontal and Lat 14:47:43 CDT CPT-JTINJ Asp/Joint Injection 09:51:53 COLOR TELEVISION CONSOLE MONITOR CPT-OV Office Visit 17:39:05 CDT CPT-OV Office Visit 15:19:50 CDT CPT-36268 Sono transvag pelvis non OB uterus ovaries cervix 18:04:34 CDT CPT-17220 Venipuncture Draw Fee 08:55:49 COLOR TELEVISION CONSOLE MONITOR
--- OUTSIDE RECORDS SUMMARY | 2016-11-20 13:48 | External Medical Summary | Clinical Summary ---
:1965 Author Organization [facility] [employer] Address [address] [address] Phone Allergies, Adverse Reactions, Alerts Allergy Name Reaction Description Start Date Severity Status Provider VERSED States jsut about Critical Active Gloria Saavedra PSYCHOLOGIST ENGINEERING killed her NKDA Critical Active Indigo Yokum MILITARY EQUIPMENT SPECIALIST NKDA Critical No Longer Indigo Y[facility]um MILITARY EQUIPMENT SPECIALIST Active NKDA Critical Inactive Adrianna Elder Conditions [...] 311 Active Indigo Depressive chronic 09/20 [facility] MILITARY EQUIPMENT SPECIALIST disorder, not elsewhere classified SCABIES 133.0 Resolved Maite Gutierrez Scabies 06/23 Laura ONEAL PhD HYPERTENSION 401.9 Active Joseph Pineda Unspecified 05/24 Farooq DO essential hypertension FATIGUE 780.79 Resolved Indigo Other malaise 05/24 07/02 [facility] MILITARY EQUIPMENT SPECIALIST and fatigue SLEEP APNEA, 327.23 Active Joseph Pineda Obstructive OBSTRUCTIVE, 06/27 06/27 Farooq DO sleep apnea MILD (adult) (pediatric) OVERWEIGHT 278.02 Inactive Joseph Pineda Overweight 06/28 06/28 Farooq DO Obesity 278.00 Active Indigo Obesity, 06/28 10/18 [facility] MILITARY EQUIPMENT SPECIALIST unspecified OT GENERAL V70.3 Resolved Maite C Other general MEDICAL Laura ONEAL medical EXAMINATION PhD examination for ADMIN administrative PURPOSES purposes OTHER 790.29 Resolved Maite C Other abnormal ABNORMAL 05/20 Laura ONEAL glucose GLUCOSE PhD ACUTE 466.0 Resolved Maite Gutierrez Acute bronchitis BRONCHITIS 09/02 Laura ONEAL PhD DEPENDENT 782.3 Resolved Indigo Edema EDEMA, LEGS, 10/29 10/18 [facility] MILITARY EQUIPMENT SPECIALIST BILATERAL HYPOKALEMIA, 276.8 Resolved Indigo Hypopotassemia MILD 10/29 07/02 Yo MILITARY EQUIPMENT SPECIALIST Diabetes, 250.00 Inactive Joseph Pineda Diabetes Type 2 06/27 06/27 Farooq DO mellitus without mention of complication, type II or unspecified type, not stated as uncontrolled Diabetes 250.02 Resolved Indigo Diabetes mellitus, 06/27 10/18 [facility] MILITARY EQUIPMENT SPECIALIST mellitus without type II, mention of uncontrolled [...] Resolved Indigo Routine gynecological 12/14 07/02 Yo MILITARY EQUIPMENT SPECIALIST gynecological examination examination Postmenopausa 627.1 Resolved Indigo Postmenopausal l bleeding 12/14 07/02 [facility] MILITARY EQUIPMENT SPECIALIST bleeding Screening for V76.51 Resolved Indigo Screening for malignant 12/26 07/02 [facility] MILITARY EQUIPMENT SPECIALIST malignant neoplasms of neoplasms of colon colon Insomnia, 307.42 Active 2015/0 Indigo 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 MILITARY EQUIPMENT SPECIALIST disorder of initiating or maintaining sleep Establish V68.89 Resolved Indigo Encounters for care or get 01/16 07/02 [facility] MILITARY EQUIPMENT SPECIALIST other specified acquainted administrative visit purpose Weakness, 342.90 Resolved Indigo Hemiplegia, left side of 06/20 10/18 [facility] MILITARY EQUIPMENT SPECIALIST unspecified, body affecting unspecified side TIA 435.9 Active Indigo Unspecified 06/20 07/02 [facility] MILITARY EQUIPMENT SPECIALIST transient cerebral ischemia Knee pain, 719.46 Active Indigo Pain in joint bilateral 06/20 10/18 [facility] MILITARY EQUIPMENT SPECIALIST involving lower leg Bronchitis 490 Resolved Indigo Bronchitis, not 07/23 10/18 [facility] MILITARY EQUIPMENT SPECIALIST specified as acute or chronic Diabetes 357.2 Active Maliheh Polyneuropathy mellitus, 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 y Knee pain, 719.46 Resolved Indigo Pain in joint right 06/20 09/20 [facility] MILITARY EQUIPMENT SPECIALIST involving lower leg Jesi 112.3 Resolved Indigo Candidiasis of intertrigo 10/09 09/20 [facility] MILITARY EQUIPMENT SPECIALIST skin and nails Hyperlipidemi 272.4 Active Anne Other and a 12/24 12/24 Neil unspecified RMA hyperlipidemia Incontinence, 788.33 Resolved Indigo Mixed mixed, 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 MILITARY EQUIPMENT SPECIALIST incontinence urge/stress (female) (male) Female stress 625.6 Active Yury Monaco Stress incontinence 01/03 01/03 Cy patel MD female Vaginal odor 623.8 Resolved Indigo Other specified 05/28 09/20 [facility] MILITARY EQUIPMENT SPECIALIST noninflammatory disorders of vagina Urinary tract 599.0 Resolved Indigo Urinary tract infection 05/28 09/20 [facility] MILITARY EQUIPMENT SPECIALIST infection, site not specified Urine odor 791.9 Resolved Indigo Other 05/28 09/20 [facility] MILITARY EQUIPMENT SPECIALIST nonspecific findings on examination of urine Unspecified Resolved Indigo dyspareunia 08/19 09/20 [facility] MILITARY EQUIPMENT SPECIALIST Depression Resolved Indigo 09/20 [facility] MILITARY EQUIPMENT SPECIALIST Anxiety Active Indigo Anxiety state, Disorder 08/26k MILITARY EQUIPMENT SPECIALIST unspecified SCABIES ICD-133.0 Inactive Maite C Laura PhD FATIGUE ICD-780.79 Inactive Indigo [facility] MILITARY EQUIPMENT SPECIALIST OTH GENERAL ICD-V70.3 Inactive Maite C Laura MEDICAL MD PhD EXAMINATION ADMIN PURPOSES OTHER ABNORMAL ICD-790.29 Inactive Maite C Laura GLUCOSE PhD ACUTE BRONCHITIS ICD-466.0 Inactive Maite C Laura PhD ABNORMAL VAGINAL ICD-626.9 Inactive Maite C Laura BLEEDING PhD HYPOKALEMIA, MILD ICD-276.8 Inactive Indigo [facility] MILITARY EQUIPMENT SPECIALIST Diabetes mellitus, ICD-250.02 Inactive Indigo [facility] type II, MILITARY EQUIPMENT SPECIALIST uncontrolled DEPENDENT EDEMA, ICD-782.3 Inactive Indigo [facility]um LEGS, BILATERAL MILITARY EQUIPMENT SPECIALIST Routine ICD-V72.31 Inactive Indigo [facility] gynecological MILITARY EQUIPMENT SPECIALIST examination Postmenopausal ICD-627.1 Inactive Indigo Yokum 2015 bleeding MILITARY EQUIPMENT SPECIALIST Screening for ICD-V76.51 Inactive Indigo Yokum 2015 malignant MILITARY EQUIPMENT SPECIALIST neoplasms of colon Establish care or ICD-V68.89 Inactive Indigo Yokum get acquainted MILITARY EQUIPMENT SPECIALIST visit Weakness, left ICD-342.90 Inactive Indigo [facility]ok[facility] side of body MILITARY EQUIPMENT SPECIALIST Bronchitis ICD-490 Inactive Indigo [facility] MILITARY EQUIPMENT SPECIALIST Knee pain, right ICD-719.46 Inactive Indigo Y[facility] MILITARY EQUIPMENT SPECIALIST Jesi intertrigo ICD-112.3 Inactive Indigo [facility] MILITARY EQUIPMENT SPECIALIST Incontinence, ICD-788.33 Inactive Indigo [facility]um 2016 mixed, urge/stress MILITARY EQUIPMENT SPECIALIST Vaginal odor ICD-623.8 Inactive Indigo Yokum 09/20 MILITARY EQUIPMENT SPECIALIST Urinary tract ICD-599.0 Inactive Indigo Yokum 09/20 infection MILITARY EQUIPMENT SPECIALIST Urine odor ICD-791.9 Inactive Indigo Yokum MILITARY EQUIPMENT SPECIALIST Unspecified Inactive Indigo Yokum dyspareunia MILITARY EQUIPMENT SPECIALIST Depression Inactive Indigo [facility] MILITARY EQUIPMENT SPECIALIST Sinusitis, ICD-461.1 Inactive Ismael Coyne frontal, acute Amandeep ONEAL Laryngitis, acute ICD-464.00 Inactive Ismael Coyne Amandeep ONEAL Medication List Medication Instructions Start Stop Generic NDC Status Provider Patient Date Date Name Instruction ALPRAZOLAM 3 one p.o. ALPRAZOLAM 64261111514 Active Indigo Active MG [id number] q.h.s. [facility] MILITARY EQUIPMENT SPECIALIST ABILIFY 10 MG Take one ARIPIPRAZOLE 39840996447 Active Indigo Active ORAL TABS tablet [facility] daily for MILITARY EQUIPMENT SPECIALIST depression CELEBREX 200 1 tablet 2 CELECOXIB 24143375918 No Indigo Active MG CAPS by mouth 0 Longer Yokum daily with 1 Active MILITARY EQUIPMENT SPECIALIST meals 7 / 0 4 / 2 4 TROKENDI XR 1 tab by 2 TOPIRAMATE 56562595733 No Indigo Active 100 MG ORAL mouth 0 Longer Yokum [id number] daily 1 Active MILITARY EQUIPMENT SPECIALIST 7 0 4 VESICARE 10 MG 1 pill by SOLIFENACIN 88014334545 Active J Carlos Enrique Active TABS mouth SUCCINATE Benoit daily for MD overactive bladder CIPRO 250 MG 1 tablet 2 CIPROFLOXACIN 33809463343 No Indigo Active TAB by mouth 0 HCL Longer [facility]okum twice 1 Active MILITARY EQUIPMENT SPECIALIST daily 7 METFORMIN HCL 2 tablets 2 METFORMIN HCL 53910828153 No Indigo Active 500 MG TB24 by mouth 0 Longer Yokum twice 1 Active MILITARY EQUIPMENT SPECIALIST daily 2 AMARYL 1 MG 1 tablet 2 GLIMEPIRIDE 19436009996 No Indigo Active ORAL TABS orally 0 Longer Yokum twice 1 Active MILITARY EQUIPMENT SPECIALIST daily 2 NYSTATIN apply to NYSTATIN 79737163142 Active Indigo Active 122177 UNIT/GM rash TID [facility] CREA PRN MILITARY EQUIPMENT SPECIALIST METOPROLOL 1 tab po METOPROLOL 61220101013 Active Indigo Active TARTRATE 25 MG bid TARTRATE [facility] TABS MILITARY EQUIPMENT SPECIALIST AZITHROMYCIN 2 po qd x 2 AZITHROMYCIN 85250428127 No Jillina Active 250 MG TABS 1 day, 0 Longer Frazell then 1 po 1 Active MILITARY EQUIPMENT SPECIALIST qd x 4 6 days / 0 3 / 2 6 PREDNISONE 20 2 pills 2 PREDNISONE 83960815609 No Jillina Active MG TAB daily x 4 0 Longer Frazell days 1 Active MILITARY EQUIPMENT SPECIALIST 6 / 0 3 / 2 5 PIOGLITAZONE take one a PIOGLITAZONE 18970292026 Active Maliheh Active HCL 30 MG ORAL day HCL Ziglari TABS PLATFORM BEATER JANUVIA 100 MG 1 tablet 2 SITAGLIPTIN 99679955671 No Indigo Active TABS by mouth 0 PHOSPHATE Longer Yokum daily 1 Active MILITARY EQUIPMENT SPECIALIST 6 / 0 2 / 1 6 ATORVASTATIN 1 pill by ATORVASTATIN 67768427578 Active Hannah Active CALCIUM 10 MG mouth CALCIUM Neal TABS nightly, MILITARY EQUIPMENT SPECIALIST for cholestero l ASPIRIN 81 MG 1 po qd ASPIRIN 87160582978 Active Indigo Active ORAL TABS [facility] MILITARY EQUIPMENT SPECIALIST NITROFURANTOIN One 2 NITROFURANTOIN 63314454024 No Indigo Active MONOHYD MACRO capsule 0 MONOHYD MACRO Longer Yokum 100 MG CAPS BID for 1 Active MILITARY EQUIPMENT SPECIALIST UTI 6 / 0 2 / 1 3 TRAMADOL HCL 1/2 po tid 2 TRAMADOL HCL 04494195748 No Jillina Active 50 MG TABS with ES 0 Longer Frazell Tylenol 1 Active MILITARY EQUIPMENT SPECIALIST prn pain 5 / 0 2 VYVANSE 20 MG 1 tablet 2 LISDEXAMFETAMI 74721801005 No Jillina Active ORAL CAPS daily for 0 NE DIMESYLATE Longer Frazell binge 1 Active MILITARY EQUIPMENT SPECIALIST eating 5 disorder / 0 2 LASIX 20 MG 2 tablet FUROSEMIDE 46354440523 Active Ranulfo Villalpando Active TAB by mouth [place] daily PREDNISONE 20 2 tablets 2 PREDNISONE 41198469604 No Joseph W Active MG TAB today, 0 Longer Farooq DO then 1 1 Active tablet 5 days 2-4 / 0 3 DIFLUCAN 100 1 tablet 2 FLUCONAZOLE 49111255458 No Joseph W Active MG TAB by mouth 0 Longer Farooq DO daily x 3 1 Active days 5 / 0 1 3 DIFLUCAN 100 1 tablet 2 FLUCONAZOLE 25851859271 No Joseph W Active MG TABS by mouth 0 Longer Farooq DO every 1 Active other day 5 for 2 / doses 0 1 / 2 3 ZOFRAN 4 MG 1 po q6hr ONDANSETRON 41354210863 Active Joseph W Active TABS PRN Nausea HCL Farooq DO PREDNISONE 20 2 tabs 2 PREDNISONE 91951996422 No Joseph W Active MG TAB daily for 0 Longer Farooq DO 3 days, 1 1 Active tab daily 4 for 3 / days, 1/2 1 tab daily 0 for 2 days / 2 5 AMOXICILLIN 2 po BID x 2 AMOXICILLIN 97786681226 No Maite C Active 500 MG CAPS 10 days 0 Longer Madril 1 Active PhD 4 / 1 0 / 2 0 LISINOPRIL 20 1 tablet 2 LISINOPRIL 82956076405 No Maite C Active MG TABS by mouth 0 Longer Madril daily 1 Active PhD 4 / 0 / 1 0 POTASSIUM 2 capsule 2 POTASSIUM 50593045818 No Joseph W Active CHLORIDE CR 10 by mouth 0 CHLORIDE Longer Farooq DO MEQ CPCR daily 1 Active 4 / 0 8 / 2 9 SPIRONOLACTONE 1 tablet 2 SPIRONOLACTONE 67606876297 No Joseph W Active 25 MG TAB by mouth 0 Longer Farooq DO daily 1 Active 4 / 0 8 / 2 9 METFORMIN HCL 1 tablet 2 METFORMIN HCL 30113789671 No Joseph W Active 500 MG TABS by mouth 0 Longer Farooq DO twice 1 Active daily 4 / 0 8 / 2 9 AMARYL 1 MG 1 tab 2 GLIMEPIRIDE 04277680265 No Joseph W Active TABS twice 0 Longer Faroqo DO daily 1 Active 4 / 0 8 / 2 9 PHENTERMINE 1 po q am 2 PHENTERMINE 74832398704 No Joseph W Active HCL 37.5 MG for wt. 0 HCL Longer Farooq DO TABS loss 1 Active 3 / 1 2 / 2 3 PROMETHAZINE 1 tab by 2 PROMETHAZINE 57887335568 No Joseph W Active HCL 25 MG TABS mouth 0 HCL Longer Farooq DO every 6 1 Active hours as 3 needed / 0 9 / 0 9 CIPROFLOXACIN Take one 2 CIPROFLOXACIN 51603675697 No Joseph W Active HCL 500 MG (1) tablet 0 HCL Longer Farooq DO TABS by mouth 1 Active twice a 3 day / 0 9 / 0 9 ABILIFY 5 MG one p.o. 2 ARIPIPRAZOLE 54186066917 No Joseph W Active TABS q. day 0 Longer Farooq DO 1 Active 3 / 0 9 / 0 9 HYDROCHLOROTHI 2 tabs 2 HYDROCHLOROTHI 47766075041 No Joseph W Active AZIDE 25 MG every 0 AZIDE Longer Farooq DO TABS morning 1 Active 3 / 0 6 / 2 7 ABILIFY 2 MG 1 po q hs 2 ARIPIPRAZOLE 11275962031 No Joseph W Active TABS for major 0 Longer Farooq DO depression 1 Active 3 / 0 5 / 0 7 ADIPEX-P 37.5 1/2 tab po 2 PHENTERMINE 66783315263 No Casye Active MG CAPS q am for 0 HCL Longer weight 1 Active PA loss 3 / 0 5 / 0 1 CIPRO 500 MG 1 tablet 2 CIPROFLOXACIN 30677093732 No Casey Active TAB by mouth 0 HCL Longer Leonarda twice 1 Active PA daily 3 / 0 5 / 0 1 NECON 1 po daily 2 NORETHINDRONE- 91477464938 No Casey Active () 1-35 0 ETH ESTRADIOL Longer MG-MCG TABS 1 Active PA 3 / 0 5 / 0 1 TRAMADOL HCL 1 po tid 2 TRAMADOL HCL 43668364387 No Casey Active 50 MG TABS with ES 0 Longer Tylenol 1 Active PA 3 / 0 5 / 0 1 FLUCONAZOLE one p.o. 2 FLUCONAZOLE 36430736968 No Casey Active 100 MG TABS q. day 2 0 Longer days 1 Active PA 3 / 0 5 / 0 1 POTASSIUM 1 capsule 2 POTASSIUM 32095142574 No Casey Active CHLORIDE CR 10 by mouth 0 CHLORIDE Longer MEQ CPCR daily 1 Active PA 3 / 0 5 / 0 1 IMIPRAMINE HCL Take 6 IMIPRAMINE HCL 17376546313 Active Indigo Active 50 MG TABS tablets by [facility] mouth at MILITARY EQUIPMENT SPECIALIST bedtime DIFLUCAN 100 1 tablet 2 FLUCONAZOLE 00943571801 No Joseph W Active MG TAB by mouth 0 Longer Farooq DO daily 1 Active 2 / 0 2 / 2 4 VERAPAMIL HCL 2 po bid VERAPAMIL HCL 31379506979 Active Indigo Active CR 120 MG TAB [facility] CR MILITARY EQUIPMENT SPECIALIST PERMETHRIN 5 % apply neck 2 PERMETHRIN 31937057118 No Joseph W Active CREA to toes 0 Longer Farooq DO tonight 1 Active and then 2 rinse off / in 0 morning. 1 repeat at / 7 days 2 0 SEROQUEL XR 50 one p.o. 2 QUETIAPINE 16010205017 No Joseph W Active MG [id number] q. evening 0 FUMARATE Longer Farooq DO 1 Active 2 / 0 1 / 2 0 TRAMADOL HCL 1-2 2 TRAMADOL HCL 05931659627 No Joseph W Active 50 MG TABS tablets 0 Longer Farooq DO every 6-8 1 Active hours as 2 needed for / pain 0 1 / 2 0 ALPRAZOLAM XR Take 1 2 ALPRAZOLAM 05096753514 No Joseph W Active [id number] tablet by 0 [id number] Longer Farooq DO mouth at 1 Active bedtime 1 / 2 9 DIFLUCAN 100 1 tablet 2 FLUCONAZOLE 79999418476 No Joseph W Active MG TAB by mouth 0 Longer Farooq DO daily 1 Active 0 / 0 6 AMBIEN 10 MG 1 tab by ZOLPIDEM 13750976777 Active Indigo Active TAB mouth at TARTRATE [facility] bedtime as MILITARY EQUIPMENT SPECIALIST needed for sleep DIFLUCAN 100 1 tablet DIFLUCAN 417329 FLUCONAZOLE Inactive MG TAB by mouth 100 MG TAB daily ALPRAZOLAM Take 1 ALPRAZOLAM ALPRAZOLAM Inactive XR [id number] tablet by XR [id number] mouth at [id number] bedtime TRAMADOL HCL 1-2 TRAMADOL 217293 TRAMADOL HCL Inactive 50 MG TABS tablets HCL 50 MG every 6-8 TABS hours as needed for pain SEROQUEL XR one p.o. SEROQUEL XR QUETIAPINE Inactive 50 MG q. 50 MG FUMARATE [id number] evening [id number] PERMETHRIN 5 apply PERMETHRIN 270027 PERMETHRIN Inactive % CREA neck to 5 [...] days TRAMADOL HCL 1 po tid TRAMADOL 761409 TRAMADOL HCL Inactive 50 MG TABS with ES HCL 50 MG Tylenol TABS NECON 35 1 po NECON NORETHINDRONE- Inactive (28) 1-35 daily (28) 1-35 ETH ESTRADIOL MG-MCG TABS MG-MCG TABS CIPRO 500 MG 1 tablet CIPRO 500 986030 CIPROFLOXACIN Inactive TAB by mouth MG TAB HCL twice daily ADIPEX-P 1/2 tab ADIPEX-P 337029 PHENTERMINE Inactive 37.5 MG CAPS po q am 37.5 MG HCL for CAPS weight loss ABILIFY 2 MG 1 po q hs ABILIFY 2 820238 ARIPIPRAZOLE Inactive TABS for major MG TABS depressio n HYDROCHLOROT 2 tabs HYDROCHLORO 990728 HYDROCHLOROTHI Inactive HIAZIDE 25 every THIAZIDE 25 AZIDE MG TABS morning MG TABS ABILIFY 5 MG one p.o. ABILIFY 5 810614 ARIPIPRAZOLE Inactive TABS q. day MG TABS CIPROFLOXACI Take one CIPROFLOXAC 152514 CIPROFLOXACIN Inactive N HCL 500 MG (1) IN HCL 500 HCL TABS tablet by MG TABS mouth twice a day PROMETHAZINE 1 tab by PROMETHAZIN 152941 PROMETHAZINE Inactive HCL 25 MG mouth E HCL 25 MG HCL TABS every 6 TABS hours as needed PHENTERMINE 1 po q am PHENTERMINE 692014 PHENTERMINE Inactive HCL 37.5 MG for wt. HCL 37.5 MG HCL TABS loss TABS AMARYL 1 MG 1 tab AMARYL 1 MG 325703 GLIMEPIRIDE Inactive TABS twice TABS daily METFORMIN 1 tablet METFORMIN 554018 METFORMIN HCL Inactive HCL 500 MG by mouth HCL 500 MG TABS twice TABS daily SPIRONOLACTO 1 tablet SPIRONOLACT 705791 SPIRONOLACTONE Inactive NE 25 MG TAB by mouth ONE 25 MG daily TAB POTASSIUM 2 capsule POTASSIUM POTASSIUM Inactive CHLORIDE CR by mouth CHLORIDE CR CHLORIDE 10 MEQ CPCR daily 10 MEQ CPCR LISINOPRIL 1 tablet LISINOPRIL 306702 LISINOPRIL Inactive 20 MG TABS by mouth 20 MG TABS daily DIFLUCAN 100 1 tablet DIFLUCAN 451915 FLUCONAZOLE Inactive MG TABS by mouth 100 MG TABS every other day for 2 doses DIFLUCAN 100 1 tablet DIFLUCAN 233322 FLUCONAZOLE Inactive MG TAB by mouth 100 MG TAB daily x 3 days PREDNISONE 2 tablets PREDNISONE 795718 PREDNISONE Inactive 20 MG TAB today, 20 MG TAB then 1 tablet days 2-4 VYVANSE 20 1 tablet VYVANSE 20 LISDEXAMFETAMI Inactive MG ORAL CAPS daily for MG ORAL NE DIMESYLATE binge CAPS eating disorder TRAMADOL HCL 1/2 po TRAMADOL 300959 TRAMADOL HCL Inactive 50 MG TABS tid with HCL 50 MG ES TABS Tylenol prn pain JANUVIA 100 1 tablet JANUVIA 100 SITAGLIPTIN Inactive MG TABS by mouth MG TABS PHOSPHATE daily AMARYL 1 MG 1 tablet AMARYL 1 MG 749143 GLIMEPIRIDE Inactive ORAL TABS orally ORAL TABS twice daily METFORMIN 2 tablets METFORMIN METFORMIN HCL Inactive HCL 500 MG by mouth HCL 500 MG TB24 twice TB24 daily TROKENDI XR 1 tab by TROKENDI XR TOPIRAMATE Inactive 100 MG ORAL mouth 100 MG ORAL [id number] daily [id number] CELEBREX 200 1 tablet CELEBREX 781704 CELECOXIB Inactive MG CAPS by mouth 200 MG CAPS daily with meals AMOXICILLIN 2 po BID AMOXICILLIN 515183 AMOXICILLIN Inactive 500 MG CAPS x 10 days 500 MG CAPS PREDNISONE 2 tabs PREDNISONE 658385 PREDNISONE Inactive 20 MG TAB daily for 20 MG TAB 3 days, 1 tab daily for 3 days, 1/2 tab daily for 2 days NITROFURANTO One NITROFURANT 9307249 NITROFURANTOIN Inactive IN MONOHYD capsule OIN MONOHYD MONOHYD MACRO MACRO 100 MG BID for MACRO 100 CAPS UTI MG CAPS PREDNISONE 2 pills PREDNISONE 768161 PREDNISONE Inactive 20 MG TAB daily x 4 20 MG TAB days AZITHROMYCIN 2 po qd x AZITHROMYCI 1098870 AZITHROMYCIN Inactive 250 MG TABS 1 day, N 250 MG then 1 po TABS qd x 4 days CIPRO 250 MG 1 tablet CIPRO 250 974877 CIPROFLOXACIN Inactive TAB by mouth MG TAB [...] HGBA1C - Chemistry sodium, serum 140 mmol/L 493-322 2846/06/03 potassium, serum 3.9 mmol/L 3.5-5.2 chloride, serum 105 mmol/L 98-107 carbon dioxide, venous blood 29.4 mmol/L 21.0-32.0 blood glucose 124 mg/dL 65-110 calcium, serum 8.9 mg/dL 8.5-10.1 urea nitrogen, blood 14 mg/dL 7-18 creatinine, serum 0.88 mg/dL 0.55-1.30 hemoglobin A1C, blood, as % of total hemoglobin 5.7 % 4.3-6.0 Lab Report: Chlamydia/GC APTIMA/[id number] - Lab chlamydia DNA probe NOT DETECTED NOT DETECTED Lab Report: Chlamydia/GC APTIMA/[id number] - Microbiology Neisseria gonorrhoeae DNA probe NOT DETECTED NOT DETECTED Lab Report: Lipid Panel - Chemistry cholesterol, serum 157 mg/dL 544-386 7195/08/22 triglyceride, serum, fasting 215 mg/dL 30-200 HDL [...] Negative Negative glucose, urine, semiquantitative Negative Negative pH, urine, semiquantitative 6.0 5.0-8.5 specific gravity, urine 1.020 1.000-1.030 bilirubin, urine 1+ Negative Office Visit: -incontinence [...] mg/dL Encounters Code Encounter Date Provider Facility CPT-46205 Level 4 Est. Patient Indigo Garciaomi [facility] - 16:58:20 CDT Emery CPT-37959 Level 3 Est. Patient Yury Benoit MD [facility] 17:20:07 CDT CPT-81612 Level 4 Est. Patient Indigo Carlie MILITARY EQUIPMENT SPECIALIST [facility] - 17:02:40 SOLAR SALES MANAGER Emery CPT-45053 Level 4 New Patient Yury Benoit MD [facility] 15:17:12 CDT CPT-63283 Level 3 Est. [facility] 13[facility]37[facility]46 CDT Emery CPT-19151 Level 4 Est. [facility] Emery CPT-82279 Level 3 Est. Patient [facility] 08:58:07 CDT PLATFORM BEATER CPT-29085 Level 3 Est. Patient Faby Marino [facility] 14:40:56 CDT MILITARY EQUIPMENT SPECIALIST CPT-13592 Level 4 Est. Patient [facility] 17:29:53 SOLAR SALES MANAGER PLATFORM BEATER CPT-41531 Level 4 Est. Patient [facility] 09:51:54 SOLAR SALES MANAGER CPT-08598 Level 3 Est. Patient [facility] 18:59:38 CDT CPT-02824 Level 3 Est. Patient Joseph Pineda [facility] 14:42:12 CDT -[facility] CPT-18975 Level 3 Est. Patient Joseph Pineda [facility] 22:18:20 CDT -[facility] CPT-15325 Level 3 Est. Patient Joseph Pineda [facility] 16:46:04 CDT -[facility] CPT-05525 Level 3 Est. Patient Joseph Pineda [facility] 15:39:53 CDT -RHC CPT-50067 Level 3 Est. Patient Maite Sanchez MD PhD [facility] 13:33:34 CDT -RHC CPT-49492 Level 3 Est. Patient Joseph Pineda [facility] 11:37:08 CDT -[facility]HC CPT-83748 Level 3 Est. Patient Joseph Pineda [facility] 17:13:29 SOLAR SALES MANAGER -RHC CPT-40519 Level 3 Est. Patient Joseph Trivedi [facility] 18:42:44 CDT CPT-93063 Level 3 Est. Patient Joseph Trivedi [facility] 16:25:39 CDT CPT-66452 Level 3 Est. Patient Casey Brower [facility] 09:52:45 CDT -RHC CPT-23411 Level 3 Est. Patient Joseph Trivedi [facility] 11:03:29 SOLAR SALES MANAGER -RHC CPT-71367 Level 3 Est. Patient Joseph Pineda [facility] 11:03:08 SOLAR SALES MANAGER -RHC CPT-88736 Level 3 Est. Patient Joseph Pineda [facility] 14:33:31 CDT -RHC CPT-23830 Level 3 Est. Patient Joseph Pineda [facility] 17:05:02 SOLAR SALES MANAGER -RHC CPT-68393 Level 3 Est. Patient Joseph Pineda [facility] 17:48:06 SOLAR SALES MANAGER -RHC CPT-67020 Level 3 Est. Patient Joseph Pineda [facility] 14:59:22 SOLAR SALES MANAGER -RHC CPT-25968 Level 3 Est. Patient Joseph Pineda [facility] - 21:45:56 SOLAR SALES MANAGER [place] [facility] CPT-09684 Level 3 Est. Patient Joseph Pineda [facility] 21:29:50 CDT -RHC CPT-79063 Level 3 Est. Patient Joseph Pineda [facility] 12:41:09 CDT -RHC Procedures Code Procedure Name Date Entry Date Standard Description CPT-82677 Wet Mount - LAB USE ONLY 12:39:03 SOLAR SALES MANAGER CPT-96774 Vaginal Culture - LAB USE ONLY 12:39:03 SOLAR SALES MANAGER CPT-29642 Urine Culture - LAB USE ONLY 11:52:44 SOLAR SALES MANAGER CPT-10115 UA w micro - LAB USE ONLY 11:52:44 SOLAR SALES MANAGER CPT-99530 Postop F/U Visit 12:08:35 CDT CPT-48862 Postop F/U Visit 18:20:10 CDT CPT-A4351 Coloplast Female Cath 09:37:10 CDT CPT-42008 Urine Dip (Floor Use Only) 15:17:13 CDT CPT-90944 Dil F ureth int 15:17:13 CDT CPT-28850 Venipuncture Draw Fee 09:19:08 CDT CPT-34812 Lipid - LAB USE ONLY 09:19:07 CDT CPT-JTINJ Asp/Joint Injection 09:26:49 CDT CPT-33080 Chest 2V Frontal and Lat 14:47:43 CDT CPT-JTINJ Asp/Joint Injection 09:51:53 SOLAR SALES MANAGER CPT-OV Office Visit 17:39:05 CDT CPT-OV Office Visit 15:19:50 CDT CPT-81004 Sono transvag pelvis non OB uterus ovaries cervix 18:04:34 CDT CPT-57876 Venipuncture Draw Fee 08:55:49 SOLAR SALES MANAGER
--- OUTSIDE RECORDS SUMMARY | 2016-11-20 13:49 | External Medical Summary | Clinical Summary ---
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 NKDA Critical Inactive Adrianna Elder Conditions [...] 464.00 Resolved [facility] of obstruction Binge eating 307.51 Active Joseph Pineda Bulimia nervosa disorder 08/15 08/15 Farooq DO Routine V72.31 Active Jillina Routine gynecological 12/14 12/14 Frazell gynecological examination GAME ROOM ATTENDANT examination Postmenopausal 627.1 Active Jillina Postmenopausal bleeding 12/14 12/14 [place] bleeding GAME ROOM ATTENDANT Screening for V76.51 Active Ismael Coyne Screening for malignant 12/26 12/26 Amandeep malignant neoplasms of MD neoplasms of colon colon Insomnia, 307.42 Active Indigo 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 GAME ROOM ATTENDANT disorder of initiating or maintaining sleep Establish care V68.89 Active Indigo Encounters for or get 01/16 01/18 Yokum GAME ROOM ATTENDANT other specified acquainted administrative visit purpose Weakness, left 342.90 Active Indigo Hemiplegia, side of body 06/20 06/20 Yokum GAME ROOM ATTENDANT unspecified, affecting unspecified side ABNORMAL VAGINAL ICD-626.9 [...] Name Instruction ATORVASTATIN 1 pill by ATORVASTATIN 11820532419 Active Indigo Active CALCIUM 10 MG mouth CALCIUM [place] TABS nightly, for GAME ROOM ATTENDANT cholesterol TROKENDI XR 1 tab daily TOPIRAMATE 97885614048 Active Indigo Active 100 MG ORAL [place] [id number] GAME ROOM ATTENDANT ASPIRIN 81 MG 1 po qd ASPIRIN 36546985504 Active Indigo Active ORAL TABS [place] GAME ROOM ATTENDANT NITROFURANTOIN One capsule 2 NITROFURANTOIN 93437275149 No Indigo Active MONOHYD MACRO BID for UTI 0 MONOHYD MACRO Longer [place] 100 MG CAPS 1 Active GAME ROOM ATTENDANT 6 / 0 2 / 1 3 JANUVIA 100 MG 1 tablet by SITAGLIPTIN 23708392715 Active Indigo Active TABS mouth daily PHOSPHATE [place] GAME ROOM ATTENDANT METFORMIN HCL 2 tablets by METFORMIN HCL 93349707310 Active Indigo Active 500 MG TB24 mouth twice [place] daily GAME ROOM ATTENDANT TRAMADOL HCL 1/2 po tid 2 TRAMADOL HCL 37622101972 No Jillin Active 50 MG TABS with ES 0 Longer a Tylenol prn 1 Active [place]el pain 5 l GAME ROOM ATTENDANT / 0 8 / 1 2 VYVANSE 20 MG 1 tablet 2 LISDEXAMFETAMI 60619205551 No Jillin Active ORAL CAPS daily for 0 NE DIMESYLATE Longer a binge eating 1 Active [place] disorder 5 l GAME ROOM ATTENDANT / 0 8 / 1 2 LASIX 20 MG 2 tablet by FUROSEMIDE 87873830951 Active Joseph Active TAB mouth daily W [place] DO CELEBREX 200 1 tablet by CELECOXIB 33030183204 Active Joseph Active MG CAPS mouth daily W [place] with meals DO PREDNISONE 20 2 tablets 2 PREDNISONE 12867817030 No Joseph Active MG TAB today, then 0 Longer [place] 1 tablet 1 Active DO days 2-4 5 / 0 4 / 3 DIFLUCAN 100 1 tablet by 2 FLUCONAZOLE 19571682540 No Joseph Active MG TAB mouth daily 0 Longer [place] x 3 days 1 Active DO 5 / 0 3 AMARYL 1 MG 1 tablet GLIMEPIRIDE 19132416468 Active Joseph Active ORAL TABS orally twice [place] daily DO DIFLUCAN 100 1 tablet by 2 FLUCONAZOLE 23903568641 No Joseph Active MG TABS mouth every 0 Longer [place] other day 1 Active DO for 2 doses 5 / 0 1 / 2 3 ZOFRAN 4 MG 1 po q6hr ONDANSETRON 30830309688 Active Joseph Active TABS PRN Nausea HCL W [place] DO PREDNISONE 20 2 tabs daily 2 PREDNISONE 25832183002 No Joseph Active MG TAB for 3 days, 0 Longer [place] 1 tab daily 1 Active DO for 3 days, 4 1/2 tab / daily for 2 1 days 0 / 2 5 AMOXICILLIN 2 po BID x 2 AMOXICILLIN 34411427153 No Maite C Active 500 MG CAPS 10 days 0 Longer Madril 1 Active PhD 0 / 2 0 LISINOPRIL 20 1 tablet by 2 LISINOPRIL 82094053236 No Maite C Active MG TABS mouth daily 0 Longer Madril 1 Active PhD 0 / 1 0 POTASSIUM 2 capsule by 2 POTASSIUM 92368944247 No Joseph Active CHLORIDE CR 10 mouth daily 0 CHLORIDE Longer [place] MEQ CPCR 1 Active DO 4 / 0 8 / 2 9 SPIRONOLACTONE 1 tablet by 2 SPIRONOLACTONE 10364214975 No Joseph Active 25 MG TAB mouth daily 0 Longer [place] 1 Active DO 4 / 0 8 / 2 9 METFORMIN HCL 1 tablet by 2 METFORMIN HCL 82977293118 No Joseph Active 500 MG TABS mouth twice 0 Longer [place] daily 1 Active DO 4 / 0 8 / 2 9 AMARYL 1 MG 1 tab twice 2 GLIMEPIRIDE 64935300755 No Joseph Active TABS daily 0 Longer [place] 1 Active DO 4 / 0 8 / 2 9 PHENTERMINE 1 po q am 2 PHENTERMINE 67595311822 No Joseph Active HCL 37.5 MG for wt. loss 0 HCL Longer [place] TABS 1 Active DO 3 / 1 2 / 2 3 PROMETHAZINE 1 tab by 2 PROMETHAZINE 02822139454 No Joseph Active HCL 25 MG TABS mouth every 0 HCL Longer [place] 6 hours as 1 Active DO needed 3 / 0 9 / 0 9 CIPROFLOXACIN Take one (1) 2 CIPROFLOXACIN 56876840930 No Joseph Active HCL 500 MG tablet by 0 HCL Longer [place] TABS mouth twice 1 Active DO a day 3 / 0 9 / 0 9 ABILIFY 5 MG one p.o. q. 2 ARIPIPRAZOLE 97838958458 No Joseph Active TABS day 0 Longer [place] 1 Active DO 3 / 0 9 / 0 9 HYDROCHLOROTHI 2 tabs every 2 HYDROCHLOROTHI 88765644113 No Joseph Active AZIDE 25 MG morning 0 AZIDE Longer [place] TABS 1 Active DO 3 / 0 6 / 2 7 ABILIFY 2 MG 1 po q hs 2 ARIPIPRAZOLE 41916577803 No Joseph Active TABS for major 0 Longer [place] depression 1 Active DO 3 / 0 5 / 0 7 ADIPEX-P 37.5 1/2 tab po q 2 PHENTERMINE 70360587322 No Casey Active MG CAPS am for 0 HCL Long[place] weight loss 1 Active PA 3 / 0 5 / 0 1 CIPRO 500 MG 1 tablet by 2 CIPROFLOXACIN 64846434714 No Casey Active TAB mouth twice 0 HCL Long[place] daily 1 Active PA 3 / 0 5 / 0 1 NECON 1/35 1 po daily 2 NORETHINDRONE- 23837532667 No Casey Active (28) 1-35 0 ETH ESTRADIOL Longer [place] MG-MCG TABS 1 Active PA 3 / 0 5 / 0 1 TRAMADOL HCL 1 po tid 2 TRAMADOL HCL 93793281488 No Casey Active 50 MG TABS with ES 0 Longer [place] Tylenol 1 Active PA 3 / 0 5 / 0 1 FLUCONAZOLE one p.o. q. 2 FLUCONAZOLE 77074309835 No Casey Active 100 MG TABS day 2 days 0 Longer [place] 1 Active PA 3 / 0 5 / 0 1 POTASSIUM 1 capsule by 2 POTASSIUM 91460728496 No Casey Active CHLORIDE CR 10 mouth daily 0 CHLORIDE [facility] MEQ CPCR 1 Active PA 3 / 0 5 / 0 1 IMIPRAMINE HCL Take 6 IMIPRAMINE HCL 38823688422 Active Joseph Active 50 MG TABS tablets by [place] mouth at DO bedtime DIFLUCAN 100 1 tablet by 2 FLUCONAZOLE 40172988878 No Joseph Active MG TAB mouth daily 0 Longer [place] 1 Active DO 2 / 0 2 / 2 4 METOPROLOL 1/2 tab po METOPROLOL 88286561619 Active Joseph Active TARTRATE 25 MG bid TARTRATE [place] TABS DO VERAPAMIL HCL 2 po bid VERAPAMIL HCL 15507374405 Active Joseph Active CR 120 MG TAB [place] CR DO PERMETHRIN 5 % apply neck 2 PERMETHRIN 53471426984 No Joseph Active CREA to toes 0 Longer [place] tonight and 1 Active DO then rinse 2 off in / morning. 0 repeat at 7 1 days / 2 0 SEROQUEL XR 50 one p.o. q. 2 QUETIAPINE 58434596662 No Joseph Active MG [id number] evening 0 FUMARATE Longer [place] 1 Active DO 2 / 0 1 / 2 0 TRAMADOL HCL 1-2 tablets 2 TRAMADOL HCL 36345272304 No Joseph Active 50 MG TABS every 6-8 0 Longer [place] hours as 1 Active DO needed for 2 pain / 0 1 / 2 0 ALPRAZOLAM 3 one p.o. ALPRAZOLAM 74391415534 Active Indigo Active MG [id number] q.h.s. [place]okum GAME ROOM ATTENDANT ALPRAZOLAM XR Take 1 2 ALPRAZOLAM 61979425541 No Joseph Active [id number]-YEI tablet by 0 [id number] Longer [place] mouth at 1 Active DO bedtime 1 / 2 9 DIFLUCAN 100 1 tablet by 2 FLUCONAZOLE 43836998933 No Joseph Active MG TAB mouth daily 0 Longer [place] 1 Active DO 0 / 0 6 AMBIEN 10 MG 1 tab by ZOLPIDEM 68886097028 Active Joseph Active TAB mouth at TARTRATE [place] bedtime as DO needed for sleep DIFLUCAN 100 1 tablet DIFLUCAN 626479 FLUCONAZOLE Inactive MG TAB by mouth 100 MG TAB daily ALPRAZOLAM Take 1 ALPRAZOLAM ALPRAZOLAM Inactive XR [id number] tablet by XR [id number] mouth at [id number] bedtime TRAMADOL HCL 1-2 TRAMADOL 319637 TRAMADOL HCL Inactive 50 MG TABS tablets HCL 50 MG every 6-8 TABS hours as needed for pain SEROQUEL XR one p.o. SEROQUEL XR QUETIAPINE Inactive 50 MG q. 50 MG FUMARATE [id number] evening [id number] PERMETHRIN 5 apply PERMETHRIN 403869 PERMETHRIN Inactive % CREA neck to 5 % CREA toes tonight and then rinse off in morning. repeat at 7 days DIFLUCAN 100 1 tablet DIFLUCAN 846764 FLUCONAZOLE Inactive MG TAB by mouth 100 MG TAB daily POTASSIUM 1 capsule POTASSIUM POTASSIUM Inactive CHLORIDE CR by mouth CHLORIDE CR CHLORIDE 10 MEQ CPCR daily 10 MEQ CPCR FLUCONAZOLE one p.o. FLUCONAZOLE 096072 FLUCONAZOLE Inactive 100 MG TABS q. day 2 100 MG TABS days TRAMADOL HCL 1 po tid TRAMADOL 214911 TRAMADOL HCL Inactive 50 MG TABS with ES HCL 50 MG Tylenol TABS NECON 1/35 1 po NECON /35 NORETHINDRONE- Inactive (28) 1-35 daily (28) 1-35 ETH ESTRADIOL MG-MCG TABS MG-MCG TABS CIPRO 500 MG 1 tablet CIPRO 500 137211 CIPROFLOXACIN Inactive TAB by mouth MG TAB HCL twice daily ADIPEX-P 1/2 tab ADIPEX-P 048535 PHENTERMINE Inactive 37.5 MG CAPS po q am 37.5 MG HCL for CAPS weight loss ABILIFY 2 MG 1 po q hs ABILIFY 2 215258 ARIPIPRAZOLE Inactive TABS for major MG TABS depressio n HYDROCHLOROT 2 tabs HYDROCHLORO 765237 HYDROCHLOROTHI Inactive HIAZIDE 25 every THIAZIDE 25 AZIDE MG TABS morning MG TABS ABILIFY 5 MG one p.o. ABILIFY 5 582023 ARIPIPRAZOLE Inactive TABS q. day MG TABS CIPROFLOXACI Take one CIPROFLOXAC 176728 CIPROFLOXACIN Inactive N HCL 500 MG (1) IN HCL 500 HCL TABS tablet by MG TABS mouth twice a day PROMETHAZINE 1 tab by PROMETHAZIN 764693 PROMETHAZINE Inactive HCL 25 MG mouth E HCL 25 MG HCL TABS every 6 TABS hours as needed PHENTERMINE 1 po q am PHENTERMINE 503618 PHENTERMINE Inactive HCL 37.5 MG for wt. HCL 37.5 MG HCL TABS loss TABS AMARYL 1 MG 1 tab AMARYL 1 MG 044703 GLIMEPIRIDE Inactive TABS twice TABS daily METFORMIN 1 tablet METFORMIN 875529 METFORMIN HCL Inactive HCL 500 MG by mouth HCL 500 MG TABS twice TABS daily SPIRONOLACTO 1 tablet SPIRONOLACT 934881 SPIRONOLACTONE Inactive NE 25 MG TAB by mouth ONE 25 MG daily TAB POTASSIUM 2 capsule POTASSIUM POTASSIUM Inactive CHLORIDE CR by mouth CHLORIDE CR CHLORIDE 10 MEQ CPCR daily 10 MEQ CPCR LISINOPRIL 1 tablet LISINOPRIL 285802 LISINOPRIL Inactive 20 MG TABS by mouth 20 MG TABS daily DIFLUCAN 100 1 tablet DIFLUCAN 875263 FLUCONAZOLE Inactive MG TABS by mouth 100 MG TABS every other day for 2 doses DIFLUCAN 100 1 tablet DIFLUCAN 707506 FLUCONAZOLE Inactive MG TAB by mouth 100 MG TAB daily x 3 days PREDNISONE 2 tablets PREDNISONE 961127 PREDNISONE Inactive 20 MG TAB today, 20 MG TAB then 1 tablet days 2-4 VYVANSE 20 1 tablet VYVANSE 20 LISDEXAMFETAMI Inactive MG ORAL CAPS daily for MG ORAL NE DIMESYLATE binge CAPS eating disorder TRAMADOL HCL 1/2 po TRAMADOL 454094 TRAMADOL HCL Inactive 50 MG TABS tid with HCL 50 MG ES TABS Tylenol prn pain AMOXICILLIN 2 po BID AMOXICILLIN 944456 AMOXICILLIN Inactive 500 MG CAPS x 10 days 500 MG CAPS PREDNISONE 2 tabs PREDNISONE 900956 PREDNISONE Inactive 20 MG TAB daily for 20 MG TAB 3 days, 1 tab daily for 3 days, 1/2 tab daily for 2 days NITROFURANTO One NITROFURANT 8630591 NITROFURANTOIN Inactive IN MONOHYD capsule OIN MONOHYD [...] HGBA1C - Chemistry sodium, serum 140 mmol/L 758-695 1972/04/13 potassium, serum 3.9 mmol/L 3.5-5.2 chloride, serum [...] 198 10^3/MM^3 10*3/mm3 142-424 Lab Report: Chlamydia/GC APTIMA/[id number] - Lab chlamydia DNA probe NOT DETECTED NOT DETECTED Lab Report: Chlamydia/GC APTIMA/[id number] - Microbiology Neisseria gonorrhoeae DNA probe NOT DETECTED NOT DETECTED Lab Report: Comp. Metabolic Panel, Lipid Panel - Chemistry sodium, serum 136 mmol/L 025-213 7428/01/04 carbon dioxide, venous blood 27.0 mmol/L 21.0-32.0 potassium, serum 4.6 mmol/L 3.5-5.2 chloride, serum 98 mmol/L 98-107 blood glucose 174 mg/dL 65-110 urea nitrogen, blood 12 mg/dL 7-18 creatinine, serum 0.78 mg/dL 0.55-1.30 alanine aminotransferase (SGPT), serum 65 U/L 12-78 aspartate aminotransferase (SGOT), serum 34 U/L 15-37 calcium, serum 8.9 mg/dL 8.5-10.1 bilirubin, serum, total 0.40 mg/dL 0.00-1.00 cholesterol, serum 219 mg/dL 771-283 8894/01/04 triglyceride, serum, fasting 214 mg/dL 30-200 HDL [...] mg/g mg/g{creat} 0-29 sodium, serum 140 mmol/L 470-936 4341/07/21 potassium, serum 3.9 mmol/L 3.5-5.2 chloride, serum [...] 142-424 Encounters Code Encounter Date Provider Facility CPT-72913 Level 3 Est. Patient Indigo Sexton APRN [facility] 18:59:38 CDT CPT-50573 Level 3 Est. Patient [facility] 14:42:12 CDT -[facility] CPT-12617 Level 3 Est. Patient [place] [facility] 22:18:20 CDT -[facility]HC CPT-35615 Level 3 Est. Patient [facility] 16:46:04 CDT -[facility]HC CPT-20279 Level 3 Est. Patient [facility] 15:39:53 CDT -[facility] CPT-91743 Level 3 Est. Patient Maite Sanchez MD [facility] 13:33:34 CDT -RHC CPT-23526 Level 3 Est. Patient [facility] 11:37:08 CDT -[facility]HC CPT-48367 Level 3 Est. Patient [facility] 17:13:29 [employer] -[facility] CPT-01278 Level 3 Est. Patient [place] [facility] 18:42:44 CDT CPT-89886 Level 3 Est. Patient [facility] 16:25:39 CDT CPT-63381 Level 3 Est. Patient Casey ARCHIBALD [facility] 09:52:45 CDT -RHC CPT-38216 Level 3 Est. Patient [facility] 11:03:29 COUNTY TREAS[employer]ER -[facility] CPT-44396 Level 3 Est. Patient [facility] 11:03:08 COUNTY TREAS[employer]ER -[facility] CPT-53417 Level 3 Est. Patient [facility] 14:33:31 CDT -[facility]HC CPT-08797 Level 3 Est. Patient Joseph Pineda [facility] 17:05:02 COUNTY TREASURER -[facility] CPT-92418 Level 3 Est. Patient Joseph Pineda [facility] 17:48:06 COUNTY TREASURER -[facility] CPT-60906 Level 3 Est. Patient Joseph Pineda [facility] 14:59:22 COUNTY TREASURER -C CPT-07543 Level 3 Est. Patient Joseph [facility] - 21:45:56 [facility] Level 3 Est. Patient [facility] 21:29:50 CDT -[facility] CPT-98906 Level 3 Est. Patient Joseph [facility] 12:41:09 T -[facility] Procedures Code Procedure Name Date Entry Date Standard Description CPT-OV Office Visit 17:39:05 CDT CPT-OV Office Visit 15:19:50 CDT CPT-74422 Sono transvag pelvis non OB uterus ovaries cervix 18:04:34 CDT CPT-43988 Venipuncture Draw Fee 08:55:49 COUNTY TREAS[employer]ER
--- OUTSIDE RECORDS SUMMARY | 2016-11-20 13:49 | External Medical Summary | Clinical Summary ---
:1965 Author Organization [facility] Address [address] [place] [address] Phone Allergies, Adverse Reactions, Alerts Allergy Name Reaction Description Start Date Severity Status Provider NKDA Critical No Longer Indigo Yokum PIANO STRINGER Active NKDA Critical Inactive Adrianna Elder Conditions [...] 06/23 Laura ONEAL PhD HYPERTENSION 401.9 Active Jospeh Pineda Unspecified 05/24 Farooq CORDERO essential hypertension FATIGUE 780.79 Resolved Indigo Other malaise 05/24 07/02 Yokum PIANO STRINGER and fatigue SLEEP APNEA, 327.23 Active Joseph [...] Resolved Indigo Hypopotassemia MILD 10/29 07/02 Yo PIANO STRINGER Diabetes, Type 250.00 Inactive Joseph Pineda Diabetes 2 06/27 06/27 Farooq DO mellitus without mention of complication, type II or unspecified type, not stated as uncontrolled Diabetes 250.02 Active Indigo Diabetes mellitus, type 06/27um PIANO STRINGER mellitus II, without mention uncontrolled of complication, [...] Resolved Indigo Routine gynecological 12/14 07/02 Yo PIANO STRINGER gynecological examination examination Postmenopausal 627.1 Resolved Indigo Postmenopausal bleeding 12/14 07/02 Youm PIANO STRINGER bleeding Screening for V76.51 Resolved Indigo Screening for malignant 12/26 07/02 Yokum PIANO STRINGER malignant neoplasms of neoplasms of colon colon Insomnia, 307.42 Active Indigo 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 STRINGER disorder of initiating or maintaining sleep Establish care V68.89 Resolved Indigo Encounters for or get 01/16 07/02 Yo PIANO STRINGER other specified acquainted administrative visit purpose Weakness, left 342.90 Active Indigo Hemiplegia, side of body 06/20 06/20 Yokum PIANO STRINGER unspecified, affecting unspecified side TIA 435.9 Active Indigo Unspecified 06/20 07/02 Yokum PIANO STRINGER transient cerebral ischemia Knee pain, 719.46 Active Indigo Pain in joint bilateral 06/20 07/02 Yokum PIANO STRINGER involving lower leg ABNORMAL VAGINAL ICD-626.9 Inactive Maite Sanchez BLEEDING PhD SCABIES ICD-133.0 Inactive Maite Sanchez PhD FATIGUE ICD-780.79 Inactive Indigo Yokum PIANO STRINGER OTH GENERAL ICD-V70.3 Inactive Maite Sanchez MEDICAL MD PhD EXAMINATION ADMIN PURPOSES OTHER ABNORMAL ICD-790.29 Inactive Maite Sanchez GLUCOSE PhD ACUTE BRONCHITIS ICD-466.0 Inactive Maite Sanchez PhD HYPOKALEMIA, MILD ICD-276.8 Inactive Indigo Yokum PIANO STRINGER Sinusitis, ICD-461.1 Inactive Ismael Coyne frontal, acute Amandeep ONEAL Laryngitis, acute ICD-464.00 Inactive Ismael Coyne Amandeep ONEAL Routine ICD-V72.31 Inactive Indigo Yokum gynecological PIANO STRINGER examination Postmenopausal ICD-627.1 Inactive Indigo Yokum 2015 bleeding PIANO STRINGER Screening for ICD-V76.51 Inactive Indigo Yokum 2015 malignant PIANO STRINGER neoplasms of colon Establish care or ICD-V68.89 Inactive Indigo Yokum get acquainted PIANO STRINGER visit Medication List Medication Instructions Start Stop Generic NDC Status Provider Patient Date Date Name Instruction PIOGLITAZONE take PIOGLITAZONE 35212277034 Active Maliheh Active HCL 30 MG ORAL one a HCL Ziglari TABS day DATA OFFICER JANUVIA 100 MG 1 2 SITAGLIPTIN 74202653906 No Indigo Active TABS tablet 0 PHOSPHATE Longer Yokum by 1 Active PIANO STRINGER mouth 6 daily / 0 2 / 6 ATORVASTATIN 1 pill ATORVASTATIN 40740099963 Active Indigo Active CALCIUM 10 MG by CALCIUM Yokum TABS mouth PIANO STRINGER nightly , for cholest diana TROKENDI XR 100 1 tab TOPIRAMATE 25158907996 Active Indigo Active MG ORAL daily Yokum [id number] PIANO STRINGER ASPIRIN 81 MG 1 po qd ASPIRIN 67640881413 Active Indigo Active ORAL TABS Yokum PIANO STRINGER NITROFURANTOIN One 2 NITROFURANTOIN 74849011248 No Indigo Active MONOHYD MACRO capsule 0 MONOHYD MACRO Longer Yokum 100 MG CAPS BID for 1 Active PIANO STRINGER UTI 6 / 0 3 METFORMIN HCL 2 METFORMIN HCL 25630003001 Active Indigo Active 500 MG TB24 tablets Yokum by PIANO STRINGER mouth twice daily TRAMADOL HCL 50 1/2 po 2 TRAMADOL HCL 74776680351 No Jillina Active MG TABS tid 0 Longer Frazell with ES 1 Active PIANO STRINGER Tylenol 5 prn / pain 0 / 2 VYVANSE 20 MG 1 2 LISDEXAMFETAMIN 92537174613 No Jillina Active ORAL CAPS tablet 0 E DIMESYLATE Longer [place] daily 1 Active PIANO STRINGER for 5 binge / eating 0 disorde 8 r / 1 2 LASIX 20 MG TAB 2 FUROSEMIDE 91731809147 Active Joseph W Active tablet Farooq DO by mouth daily CELEBREX 200 MG 1 CELECOXIB 33150388318 Active Joseph W Active CAPS tablet Farooq DO by mouth daily with meals PREDNISONE 20 2 2 PREDNISONE 54967087055 No Joseph W Active MG TAB tablets 0 Longer Farooq DO today, 1 Active then 1 5 tablet / days 0 2-4 4 3 DIFLUCAN 100 MG 1 2 FLUCONAZOLE 25380283861 No Joseph W Active TAB tablet 0 Longer Farooq DO by 1 Active mouth 5 daily x / 3 days 0 3 AMARYL 1 MG 1 GLIMEPIRIDE 45291661389 Active Joseph W Active ORAL TABS tablet Farooq DO orally twice daily DIFLUCAN 100 MG 1 2 FLUCONAZOLE 07616470759 No Joseph W Active TABS tablet 0 Longer Farooq DO by 1 Active mouth 5 every / other 0 day for 1 2 doses / 2 3 ZOFRAN 4 MG 1 po ONDANSETRON HCL 09992644721 Active Joseph W Active TABS q6hr Farooq DO PRN Nausea PREDNISONE 20 2 tabs 2 PREDNISONE 00825999979 No Joesph W Active MG TAB daily 0 Longer Farooq DO for 3 1 Active days, 1 4 tab / daily 1 for 3 0 days, / 1/2 tab 2 daily 5 for 2 days AMOXICILLIN 500 2 po 2 AMOXICILLIN 89972256180 No Maite C Active MG CAPS BID x 0 Longer Madril MD 10 days 1 Active PhD 4 / 1 0 / 2 0 LISINOPRIL 20 1 2 LISINOPRIL 58072501703 No Maite C Active MG TABS tablet 0 Longer Madril MD by 1 Active PhD mouth 4 daily / 1 0 / 1 0 POTASSIUM 2 2 POTASSIUM 99271808154 No Joseph W Active CHLORIDE CR 10 capsule 0 CHLORIDE Longer Farooq DO MEQ CPCR by 1 Active mouth 4 daily / 0 8 / 2 9 SPIRONOLACTONE 1 2 SPIRONOLACTONE 71642655184 No Joseph W Active 25 MG TAB tablet 0 Longer Farooq DO by 1 Active mouth 4 daily / 0 8 / 2 9 METFORMIN HCL 1 2 METFORMIN HCL 78659792668 No Joseph W Active 500 MG TABS tablet 0 Longer Farooq DO by 1 Active mouth 4 twice / daily 0 8 / 2 9 AMARYL 1 MG 1 tab 2 GLIMEPIRIDE 55047299693 No Joseph W Active TABS twice 0 Longer Farooq DO daily 1 Active 4 / 0 8 / 2 9 PHENTERMINE HCL 1 po q 2 PHENTERMINE HCL 76499171089 No Joseph W Active 37.5 MG TABS am for 0 Longer Farooq DO wt. 1 Active loss 3 / 1 2 / 2 3 PROMETHAZINE 1 tab 2 PROMETHAZINE 15943441900 No Joseph W Active HCL 25 MG TABS by 0 HCL Longer Farooq DO mouth 1 Active every 6 3 hours / as 0 needed 9 / 0 9 CIPROFLOXACIN Take 2 CIPROFLOXACIN 09335273221 No Joseph W Active HCL 500 MG TABS one (1) 0 HCL Longer Farooq DO tablet 1 Active by 3 mouth / twice a 0 day 9 / 0 9 ABILIFY 5 MG one 2 ARIPIPRAZOLE 20918501840 No Joseph W Active TABS p.o. q. 0 Longer [facility] day 1 Active 3 / 0 9 / 0 9 HYDROCHLOROTHIA 2 tabs 2 HYDROCHLOROTHIA 75057279176 No Joseph W Active ZIDE 25 MG TABS every 0 ZIDE Longer [facility] morning 1 Active 3 / 0 6 / 2 7 ABILIFY 2 MG 1 po q 2 ARIPIPRAZOLE 13895733344 No Joseph W Active TABS hs for 0 Longer [facility] major 1 Active depress 3 ion / 0 5 / 0 7 ADIPEX-P 37.5 1/2 tab 2 PHENTERMINE HCL 87619326698 No Casey Active MG CAPS po q am 0 Longer [place] [facility] for 1 Active weight 3 loss / 0 5 / 0 1 CIPRO 500 MG 1 2 CIPROFLOXACIN 81863899016 No Casey Active TAB tablet 0 HCL Longer [place] PA by 1 Active mouth 3 twice / daily 0 5 / 0 1 NECON 1/35 (28) 1 po 2 NORETHINDRONE-E 34984749301 No Casey Active 1-35 MG-MCG daily 0 TH ESTRADIOL Longer [place] PA TABS 1 Active 3 / 0 5 / 0 1 TRAMADOL HCL 50 1 po 2 TRAMADOL HCL 71283485277 No Casey Active MG TABS tid 0 Longer [place] PA with ES 1 Active Tylenol 3 / 0 5 / 0 1 FLUCONAZOLE 100 one 2 FLUCONAZOLE 11758109133 No Casey Active MG TABS p.o. q. 0 Longer [facility] day 2 1 Active days 3 / 0 5 / 0 1 POTASSIUM 1 2 POTASSIUM 17362355226 No Casey Active CHLORIDE CR 10 capsule 0 CHLORIDE Longer [place] PA MEQ CPCR by 1 Active mouth 3 daily / 0 5 / 0 1 IMIPRAMINE HCL Take 6 IMIPRAMINE HCL 10063591698 Active Joseph W Active 50 MG TABS tablets Farooq DO by mouth at bedtime DIFLUCAN 100 MG 1 2 FLUCONAZOLE 99225593416 No Joseph W Active TAB tablet 0 Longer Farooq DO by 1 Active mouth 2 daily / 0 2 / 2 4 METOPROLOL 1/2 tab METOPROLOL 18513979759 Active Joseph W Active TARTRATE 25 MG po bid TARTRATE Farooq DO TABS VERAPAMIL HCL 2 po VERAPAMIL HCL 13068314664 Active Joseph W Active CR 120 MG TAB bid Farooq DO CR PERMETHRIN 5 % apply 2 PERMETHRIN 14406707496 No Joseph W Active CREA neck to 0 Longer Farooq DO toes 1 Active tonight 2 and / then 0 rinse 1 off in / morning 2 . 0 repeat at 7 days SEROQUEL XR 50 one 2 QUETIAPINE 58808308301 No Joseph W Active MG [id number] p.o. q. 0 FUMARATE Longer Farooq DO evening 1 Active 2 / 0 1 / 2 0 TRAMADOL HCL 50 1-2 2 TRAMADOL HCL 91373784439 No Joseph W Active MG TABS tablets 0 Longer Farooq DO every 1 Active 6-8 2 hours / as 0 needed 1 for / pain 2 0 ALPRAZOLAM 3 MG one ALPRAZOLAM 30937500229 Active Indigo Active [id number] p.o. Yokum q.h.s. PIANO STRINGER ALPRAZOLAM XR Take 1 2 ALPRAZOLAM 75922885871 No Joseph W Active [id number] tablet 0 [id number] Longer Farooq DO by 1 Active mouth 1 at / bedtime 1 1 / 2 9 DIFLUCAN 100 MG 1 2 FLUCONAZOLE 04719421300 No Joseph W Active TAB tablet 0 Longer Farooq DO by 1 Active mouth 1 daily / 1 0 / 0 6 AMBIEN 10 MG 1 tab ZOLPIDEM 44985742580 Active Afsaneh Active TAB by TARTRATE Gericke, mouth MA at bedtime as needed for sleep DIFLUCAN 100 1 tablet DIFLUCAN 978972 FLUCONAZOLE Inactive MG TAB by mouth 100 MG TAB daily ALPRAZOLAM Take 1 ALPRAZOLAM ALPRAZOLAM Inactive XR [id number] tablet by XR [id number] mouth at [id number] bedtime TRAMADOL HCL 1-2 TRAMADOL 368743 TRAMADOL HCL Inactive 50 MG TABS tablets HCL 50 MG every 6-8 TABS hours as needed for pain SEROQUEL XR one p.o. SEROQUEL XR QUETIAPINE Inactive 50 MG q. 50 MG FUMARATE [id number] evening FO91A-COP PERMETHRIN 5 apply PERMETHRIN 436747 PERMETHRIN Inactive % CREA neck to 5 % CREA toes tonight and then rinse off in morning. repeat at 7 days DIFLUCAN 100 1 tablet DIFLUCAN 518826 FLUCONAZOLE Inactive MG TAB by mouth 100 MG TAB daily POTASSIUM 1 capsule POTASSIUM POTASSIUM Inactive CHLORIDE CR by mouth CHLORIDE CR CHLORIDE 10 MEQ CPCR daily 10 MEQ CPCR FLUCONAZOLE one p.o. FLUCONAZOLE 19760111 FLUCONAZOLE Inactive 100 MG TABS q. day 2 100 MG TABS days TRAMADOL HCL 1 po tid TRAMADOL 284656 TRAMADOL HCL Inactive 50 MG TABS with ES HCL 50 MG Tylenol TABS NECON 1/35 1 po NECON 1/35 NORETHINDRONE- Inactive (28) 1-35 daily (28) 1-35 ETH ESTRADIOL MG-MCG TABS MG-MCG TABS CIPRO 500 MG 1 tablet CIPRO 500 232625 CIPROFLOXACIN Inactive TAB by mouth MG TAB HCL twice daily ADIPEX-P 1/2 tab ADIPEX-P 858175 PHENTERMINE Inactive 37.5 MG CAPS po q am 37.5 MG HCL for CAPS weight loss ABILIFY 2 MG 1 po q hs ABILIFY 2 965199 ARIPIPRAZOLE Inactive TABS for major MG TABS depressio n HYDROCHLOROT 2 tabs HYDROCHLORO 176349 HYDROCHLOROTHI Inactive HIAZIDE 25 every THIAZIDE 25 AZIDE MG TABS morning MG TABS ABILIFY 5 MG one p.o. ABILIFY 5 994772 ARIPIPRAZOLE Inactive TABS q. day MG TABS CIPROFLOXACI Take one CIPROFLOXAC 241942 CIPROFLOXACIN Inactive N HCL 500 MG (1) IN HCL 500 HCL TABS tablet by MG TABS mouth twice a day PROMETHAZINE 1 tab by PROMETHAZIN 960078 PROMETHAZINE Inactive HCL 25 MG mouth E HCL 25 MG HCL TABS every 6 TABS hours as needed PHENTERMINE 1 po q am PHENTERMINE 789569 PHENTERMINE Inactive HCL 37.5 MG for wt. HCL 37.5 MG HCL TABS loss TABS AMARYL 1 MG 1 tab AMARYL 1 MG 750575 GLIMEPIRIDE Inactive TABS twice TABS daily METFORMIN 1 tablet METFORMIN 811686 METFORMIN HCL Inactive HCL 500 MG by mouth HCL 500 MG TABS twice TABS daily SPIRONOLACTO 1 tablet SPIRONOLACT 192152 SPIRONOLACTONE Inactive NE 25 MG TAB by mouth ONE 25 MG daily TAB POTASSIUM 2 capsule POTASSIUM POTASSIUM Inactive CHLORIDE CR by mouth CHLORIDE CR CHLORIDE 10 MEQ CPCR daily 10 MEQ CPCR LISINOPRIL 1 tablet LISINOPRIL 960840 LISINOPRIL Inactive 20 MG TABS by mouth 20 MG TABS daily DIFLUCAN 100 1 tablet DIFLUCAN 123137 FLUCONAZOLE Inactive MG TABS by mouth 100 MG TABS every other day for 2 doses DIFLUCAN 100 1 tablet DIFLUCAN 117279 FLUCONAZOLE Inactive MG TAB by mouth 100 MG TAB daily x 3 days PREDNISONE 2 tablets PREDNISONE 738790 PREDNISONE Inactive 20 MG TAB today, 20 MG TAB then 1 tablet days 2-4 VYVANSE 20 1 tablet VYVANSE 20 LISDEXAMFETAMI Inactive MG ORAL CAPS daily for MG ORAL NE DIMESYLATE binge CAPS eating disorder TRAMADOL HCL 1/2 po TRAMADOL 779487 TRAMADOL HCL Inactive 50 MG TABS tid with HCL 50 MG ES TABS Tylenol prn pain JANUVIA 100 1 tablet JANUVIA 100 SITAGLIPTIN Inactive MG TABS by mouth MG TABS PHOSPHATE daily AMOXICILLIN 2 po BID AMOXICILLIN 373654 AMOXICILLIN Inactive 500 MG CAPS x 10 days 500 MG CAPS PREDNISONE 2 tabs PREDNISONE 687304 PREDNISONE Inactive 20 MG TAB daily for 20 MG TAB 3 days, 1 tab daily for 3 days, 1/2 tab daily for 2 days NITROFURANTO One NITROFURANT 1552546 NITROFURANTOIN Inactive IN MONOHYD capsule OIN MONOHYD [...] HGBA1C - Chemistry sodium, serum 140 mmol/L 815-364 1803/04/13 potassium, serum 3.9 mmol/L 3.5-5.2 chloride, serum [...] 198 10^3/MM^3 10*3/mm3 142-424 Lab Report: Chlamydia/GC APTIMA/[id number] - Lab chlamydia DNA probe NOT DETECTED NOT DETECTED Lab Report: Chlamydia/GC APTIMA/[id number] - Microbiology Neisseria gonorrhoeae DNA probe NOT DETECTED NOT DETECTED Lab Report: Comp. Metabolic Panel, Lipid Panel - Chemistry sodium, serum 136 mmol/L 685-782 5917/01/04 carbon dioxide, venous blood 27.0 mmol/L 21.0-32.0 potassium, serum 4.6 mmol/L 3.5-5.2 chloride, serum 98 mmol/L 98-107 blood glucose 174 mg/dL 65-110 urea nitrogen, blood 12 mg/dL 7-18 creatinine, serum 0.78 mg/dL 0.55-1.30 alanine aminotransferase (SGPT), serum 65 U/L 12-78 aspartate aminotransferase (SGOT), serum 34 U/L 15-37 calcium, serum 8.9 mg/dL 8.5-10.1 bilirubin, serum, total 0.40 mg/dL 0.00-1.00 cholesterol, serum 219 mg/dL 013-933 8815/01/04 triglyceride, serum, fasting 214 mg/dL 30-200 HDL [...] mg/g mg/g{creat} 0-29 sodium, serum 140 mmol/L 947-336 8406/07/21 potassium, serum 3.9 mmol/L 3.5-5.2 chloride, serum [...] Yes Encounters Code Encounter Date Provider Facility CPT-51325 Level 4 Est. 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 Patient [facility] 09:51:54 INS[employer] CPT-01733 Level 3 Est. Patient [facility] 18:59:38 CDT CPT-09047 Level 3 Est. Patient Joseph Edwin [facility] 14:42:12 CDT -RHC CPT-12497 Level 3 Est. Patient Joseph Pineda [facility] 22:18:20 CDT -RHC CPT-75071 Level 3 Est. Patient Joseph Edwin [facility] 16:46:04 CDT -RHC CPT-70241 Level 3 Est. Patient Joseph Pineda [facility] 15:39:53 CDT -RHC CPT-98217 Level 3 Est. Patient Maite Sanchez MD [facility] 13:33:34 CDT -RHC CPT-10532 Level 3 Est. Patient Joseph W [facility] 11:37:08 CDT -RHC CPT-83031 Level 3 Est. Patient Joseph Pineda [facility] 17:13:29 INS[employer] -RHC CPT-06166 Level 3 Est. Patient Joseph Edwin [facility] 18:42:44 CDT CPT-10231 Level 3 Est. Patient [place] Edwin [facility] 16:25:39 CDT CPT-26605 Level 3 Est. Patient Casey Garzaner [facility] 09:52:45 CDT -RHC CPT-75945 Level 3 Est. Patient Joseph Edwin [facility] 11:03:29 INS[employer] -RHC CPT-61556 Level 3 Est. Patient [facility] 11:03:08 INS[employer] -RHC CPT-41365 Level 3 Est. Patient [facility] 14:33:31 CDT -RHC CPT-05550 Level 3 Est. Patient [facility] 17:05:02 INS[employer]OR [employer] -RHC CPT-58575 Level 3 Est. Patient [facility] 17:48:06 INS[employer] -RHC CPT-06180 Level 3 Est. Patient [facility] 14:59:22 [employer] -RHC CPT-35166 Level 3 Est. Patient [facility] - 21:45:56 INS[employer] Jose RHC CPT-46252 Level 3 Est. Patient [facility] 21:29:50 CDT -RHC CPT-69402 Level 3 Est. Patient [facility] 12:41:09 CDT -RHC Procedures Code Procedure Name Date Entry Date Standard Description CPT-JTINJ Asp/Joint Injection 09:51:53 [employer] CPT-OV Office Visit 17:39:05 CDT CPT-OV Office Visit 15:19:50 CDT CPT-70737 Sono transvag pelvis non OB uterus ovaries cervix 18:04:34 T CPT-76550 Venipuncture Draw Fee 08:55:49 [employer]
--- NOTE | 2016-11-20 13:50 | Emergency Department Report ---
Lower Extremity Injury HPI - General Chief Complaint: Urogenital-Female Stated Complaint: swollen legs,lower back pain Time Seen by Provider: 11/20/16 12:56 Source: patient Mode of arrival: ambulatory Limitations: no limitations - History of Present Illness HPI Narrative: 50yo woman presents to the ER for evaluation of leg swelling and bruising. Pt has a several-week h/o LE edema. Pts PCM placed her on lasix, 40mg daily. She is away from home ([place], [place]) at a [place]; she called her PCM and was increased to 80mg, then 100mg of lasix for continued swelling. Today, her PCM recommended that she present to the ER for evaluation. Pt has a h/o MYRNA, is not compliant with CPAP. Also has h/o HTN, HL, and DM. Has not been evaluated by cardiology or nephrology. - Related Data Home Medications Medication Instructions Recorded Confirmed ALPRAZolam [Alprazolam Xr] 3 mg PO HS 11/20/16 11/20/16 ARIPiprazole [Aripiprazole] 10 mg PO DAILY 11/20/16 11/20/16 Acetaminophen [Tylenol] 1,000 mg PO Q4-6HR PRN 11/20/16 11/20/16 Aspirin [Aspirin EC] 81 mg PO DAILY 11/20/16 11/20/16 Atorvastatin Calcium 10 mg PO HS 11/20/16 11/20/16 Imipramine HCl 300 mg PO HS 11/20/16 11/20/16 Metoprolol Tartrate [Lopressor] 25 mg PO BID 11/20/16 11/20/16 Tramadol [Ultram] 50 mg PO TID PRN 11/20/16 11/20/16 Verapamil HCl [Verapamil ER] 240 mg PO BID 11/20/16 11/20/16 Zolpidem [Ambien] 10 mg PO HS PRN 11/20/16 11/20/16 Previous Rx's Medication Instructions Recorded Furosemide [Lasix] 1 tab PO DAILY #30 tab 11/21/16 Metformin [Glucophage] 1 tab PO BIDWM #30 tab 11/21/16 Allergies Allergy/AdvReac Type Severity Reaction Status Date / Time midazolam [From Versed] AdvReac Difficulty Verified 11/20/16 13:09 Breathing Review of Systems All systems: reviewed and negative except as stated Cardiovascular: Reports: edema (B/l LE edema) Integumentary: Reports: other (Bruising) [facility] Patient Stated Medical History Cerebrovascular Accident Yes Hypertension Yes Diabetes Mellitus Type 2 Yes Medical History Updates: CAD. HTN. HL. DM2. Anxiety. Insomnia. Depression. Urge incontinence. Obesity. Chronic pain Physical Exam - Limitations Limitations: no limitations - General General appearance: alert, in no apparent distress, obese - Normal Exams: Head:: Normocephalic without trauma Eyes:: Pupils are PERRLA w/ EOMI, No scleral icterus, irritation, or foreign bodies noted ENMT:: No facial trauma, nasal exudates, pharyngeal erythema, or exudates are noted Neck:: Full range of motion, without adenopathy, JVD, bruits or thyromegaly Chest/Respirations:: Clear all licona, with good airflow, and symmetry bilaterally Cardiovascular:: Regular rate and rhythm, without murmur or gallop, Pulses 2+ all extremities, capillary refill, <2 seconds all extremities Abdomen:: Bowel sounds positive, soft, non-tender, non-distended, no hepatosplenomegaly, masses or bruits noted Lymphatic:: No lymphadenopathy, or lymphedema noted Integumentary:: No rashes, hives, hair and nails, without abnormality Neurological:: Patient is alert, and oriented, cranial nerves, motor/sensory/ cerebellar, exams w/o gross deficits, to observation Psychiatric:: Patient exhibits, appropriate attention, emotion and affect - Extremities Exam Extremities exam: Present: full ROM, normal capillary refill, pedal edema (B/l 1 + edema (non-pitting) to mid-calf). Absent: normal inspection, tenderness, joint swelling, calf tenderness - Skin Skin exam: Present: warm, dry, intact, other (Bruising along arms/legs). Absent : rash Course - Consultations Consultation #1: Dr. Cerna: Given s/s c/w CHF and increasing PO diuretic use without improvement, recommend inpt eval/treatment. May consult cards for echo/eval. Time: 15:31 Consultation #2: Hospitalist: Will admit and consult cards. Time: 15:41 Vital Signs Temperature 97.7 F 11/20/16 12:45 Pulse Rate 79 11/20/16 12:45 Respiratory Rate 16 11/20/16 12:45 Blood Pressure 128/79 11/20/16 12:45 Pulse Oximetry 96 11/20/16 12:45 Temperature 96 F L 11/21/16 07:55 Pulse Rate 80 11/21/16 14:53 Respiratory Rate 20 11/21/16 07:55 Blood Pressure 128/69 11/21/16 15:00 Pulse Oximetry 95 11/21/16 14:53 Extremity Injury, Lower - Differential Diagnosis Likely: acute internal derangement of knee (CHF, ARF, CRF, Electrolyte abn) - Medical Records Attestation: I reviewed the patient's medical records. - Lab Data Attestation: I reviewed the patient's lab results. Result diagrams: 11/21/16 04:43 11/21/16 04:43 Lab Results 11/20/16 11/20/16 11/20/16 Range/Units 13:03 13:20 13:22 WBC (4.5-11.0) T/MM3 RBC (4.00-5.20) M/MM3 Hgb (12-16) GM/DL Hct (36-46) % MCV (80-100) UM3 MCH (26-34) UUG MCHC (31-37) GM/DL RDW Std Deviation (36.9-50.2) FL Plt Count (130-400) T/MM3 MPV (9.4-12.4) UM3 Immature Gran % (Auto) (0.0-0.5) % Neut % (Auto) (33-66) % Lymph % (Auto) (23-45) % Lucas % (Auto) (0-9.0) % Eos % (Auto) (0-4) % Baso % (Auto) (0-2) % Neut # (1.8-7.7) T/MM3 Lymph # (1-4.8) T/MM3 Lucas # (0-0.8) T/MM3 Eos # (0-0.5) T/MM3 Baso # (0-0.2) T/MM3 Abs Immat Gran (auto) (0.00-0.03) T/MM3 D-Dimer < 150 (0-230) NG/ML Turbidity (0-20) Sodium (134-144) MEQ/L Potassium (3.6-5) MEQ/L Chloride (98-107) MEQ/L Carbon Dioxide (22-30) MEQ/L Anion Gap (5-15) MEQ/L BUN (7-17) MG/DL Creatinine (0.7-1.2) MG/DL GFR Calculation BUN/Creatinine Ratio (6-26) RATIO Glucose (65-110) MG/DL Calculated Osmolality (261-280) MOSM/KG Calcium (8.4-10.2) MG/DL Total Bilirubin (0.20-1.30) MG/DL Conjugated Bilirubin Unconjugated Bilirubin Icterus Index (0-7) AST (14-36) U/L ALT (9-52) U/L Alkaline Phosphatase (38-126) U/L B-Natriuretic Peptide 164 (0-175) pg/mL Total Protein (6.3-8.2) G/DL Albumin (3.5-5.0) G/DL Globulin (2.4-3.6) G/DL Albumin/Globulin Ratio (1.1-2.2) RATIO Lipase (23-300) U/L TSH (0.47-4.68) MIU/L Specimen Hemolysis (0-25) Ur Collection Type Urine, clean catch Urine Color Yellow (YELLOW) Urine Clarity Clear Urine pH 7.5 (5.0-8.0) Ur Specific [place] 1.010 L (1.015-1.025) Urine Protein Negative (NEGATIVE) Urine Glucose (UA) Negative (NEGATIVE) Urine Ketones Negative (NEGATIVE) Urine Occult Blood Negative (NEGATIVE) Urine Nitrate Negative (NEGATIVE) Urine Bilirubin Negative (NEGATIVE) Urine Urobilinogen 0.2 (NORMAL) EU/DL Ur Leukocyte Esterase Trace A (NEGATIVE) Urinalysis Comment Microscopic not ind. 11/20/16 11/20/16 11/20/16 Range/Units 13:24 13:24 13:24 WBC 5.9 (4.5-11.0) T/MM3 RBC 4.04 (4.00-5.20) M/MM3 Hgb 12.3 (12-16) GM/DL Hct 38.0 (36-46) % MCV 94.1 (80-100) UM3 MCH 30.4 (26-34) UUG MCHC 32.4 (31-37) GM/DL RDW Std Deviation 48.0 (36.9-50.2) FL Plt Count 174 (130-400) T/MM3 MPV 10.4 (9.4-12.4) UM3 Immature Gran % (Auto) 0.3 (0.0-0.5) % Neut % (Auto) 59.9 (33-66) % Lymph % (Auto) 28.2 (23-45) % Lucas % (Auto) 6.5 (0-9.0) % Eos % (Auto) 4.6 H (0-4) % Baso % (Auto) 0.5 (0-2) % Neut # 3.5 (1.8-7.7) T/MM3 Lymph # 1.7 (1-4.8) T/MM3 Lucas # 0.4 (0-0.8) T/MM3 Eos # 0.3 (0-0.5) T/MM3 Baso # 0.0 (0-0.2) T/MM3 Abs Immat Gran (auto) 0.02 (0.00-0.03) T/MM3 D-Dimer (0-230) NG/ML Turbidity < 20 Cancelled (0-20) Sodium 142 (134-144) MEQ/L Potassium 3.6 (3.6-5) MEQ/L Chloride 100 (98-107) MEQ/L Carbon Dioxide 30 (22-30) MEQ/L Anion Gap 12 (5-15) MEQ/L BUN 17.0 (7-17) MG/DL Creatinine 0.8 (0.7-1.2) MG/DL GFR Calculation 76 BUN/Creatinine Ratio 21 (6-26) RATIO Glucose 132 H (65-110) MG/DL Calculated Osmolality 277 (261-280) MOSM/KG Calcium 9.1 (8.4-10.2) MG/DL Total Bilirubin 0.60 Cancelled (0.20-1.30) MG/DL Conjugated Bilirubin Cancelled Unconjugated Bilirubin Cancelled Icterus Index < 2 Cancelled (0-7) AST 26 Cancelled (14-36) U/L ALT 39 Cancelled (9-52) U/L Alkaline Phosphatase 91 Cancelled (38-126) U/L B-Natriuretic Peptide (0-175) pg/mL Total Protein 7.1 Cancelled (6.3-8.2) G/DL Albumin 4.4 Cancelled (3.5-5.0) G/DL Globulin 2.7 Cancelled (2.4-3.6) G/DL Albumin/Globulin Ratio 1.6 Cancelled (1.1-2.2) RATIO Lipase 114 (23-300) U/L TSH 2.33 (0.47-4.68) MIU/L Specimen Hemolysis < 15 Cancelled (0-25) Ur Collection Type Urine Color (YELLOW) Urine Clarity Urine pH (5.0-8.0) Ur Specific [place] (1.015-1.025) Urine Protein (NEGATIVE) Urine Glucose (UA) (NEGATIVE) Urine Ketones (NEGATIVE) Urine Occult Blood (NEGATIVE) Urine Nitrate (NEGATIVE) Urine Bilirubin (NEGATIVE) Urine Urobilinogen (NORMAL) EU/DL Ur Leukocyte Esterase (NEGATIVE) Urinalysis Comment - Radiology Data Attestation: I reviewed the patient's radiology results. CXR: FINDINGS: No consolidative pneumonia. Slight increase in pulmonary vascular markings in the bases. There is no pleural effusion or pneumothorax. The heart size and mediastinal contours are within normal limits. There is no significant skeletal abnormality. IMPRESSION: Mild pulmonary vascular congestion. No focal pneumonia. CT Abd/Pelv: Findings: Mild atelectasis or scarring in the lower lobes. Attenuation artifact due to patient body habitus. The liver appears normal. No enhancing mass or bile duct dilatation. The gallbladder is unremarkable. The spleen, pancreas and adrenal glands are normal. The kidneys are normal. No abdominal or pelvic adenopathy. Bladder is normal. Uterus and ovaries appear normal. There is some air present within the vagina. No free fluid. No evidence of colonic diverticulosis or acute diverticulitis. No bowel obstruction normal. Impression: No acute disease process seen in the abdomen or pelvis. Disposition Clinical Impression: CONGESTIVE HEART FAILURE Disposition: 02 To [facility] Condition: Stable Time of Disposition: 15:45 - Seen By: physician
--- OUTSIDE RECORDS SUMMARY | 2016-11-20 13:50 | External Medical Summary | Clinical Summary ---
:1965 Author Organization [facility] Address [address] [place] [address] Phone Allergies, Adverse Reactions, Alerts Allergy Name Reaction Description Start Date Severity Status Provider NKDA Critical No Longer Indigo Yokum CABLEMAN Active NKDA Critical Inactive Adrianna Elder Conditions [...] Resolved Indigo Other malaise 05/24 07/02 Yokum CABLEMAN and fatigue SLEEP APNEA, 327.23 Active Joseph [...] Resolved Indigo Hypopotassemia MILD 10/29 07/02 Yo CABLEMAN Diabetes, Type 250.00 Inactive Joseph Pineda Diabetes 2 06/27 06/27 Farooq DO mellitus without mention of complication, type II or unspecified type, not stated as uncontrolled Diabetes 250.02 Active Indigo Diabetes mellitus, type 06/27um CABLEMAN mellitus II, without mention uncontrolled of complication, [...] Resolved Indigo Routine gynecological 12/14 07/02 Yo CABLEMAN gynecological examination examination Postmenopausal 627.1 Resolved Indigo Postmenopausal bleeding 12/14 07/02 Youm CABLEMAN bleeding Screening for V76.51 Resolved Indigo Screening for malignant 12/26 07/02 Yokum CABLEMAN malignant neoplasms of neoplasms of colon colon Insomnia, 307.42 Active Indigo 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 initiating or maintaining sleep Establish care V68.89 Resolved Indigo Encounters for or get 01/16 07/02 Yo CABLEMAN other specified acquainted administrative visit purpose Weakness, left 342.90 Active Indigo Hemiplegia, side of body 06/20 06/20 Yokum CABLEMAN unspecified, affecting unspecified side TIA 435.9 Active Indigo Unspecified 06/20 07/02 Yokum CABLEMAN transient cerebral ischemia Knee pain, 719.46 Active Indigo Pain in joint bilateral 06/20 07/02 Yokum CABLEMAN involving lower leg ABNORMAL VAGINAL ICD-626.9 Inactive Maite Sanchez BLEEDING PhD SCABIES ICD-133.0 Inactive Maite Sanchez PhD FATIGUE ICD-780.79 Inactive Indigo Yokum CABLEMAN OTH GENERAL ICD-V70.3 Inactive Maite Sanchez MEDICAL MD PhD EXAMINATION ADMIN PURPOSES OTHER ABNORMAL ICD-790.29 Inactive Maite Sanchez GLUCOSE PhD ACUTE BRONCHITIS ICD-466.0 Inactive Maite Sanchez PhD HYPOKALEMIA, MILD ICD-276.8 Inactive Indigo Yokum CABLEMAN Sinusitis, ICD-461.1 Inactive Ismael Coyne frontal, acute Amandeep ONEAL Laryngitis, acute ICD-464.00 Inactive Ismael Coyne Amandeep ONEAL Routine ICD-V72.31 Inactive Indigo Yokum gynecological CABLEMAN examination Postmenopausal ICD-627.1 Inactive Indigo Yokum 2015 bleeding CABLEMAN Screening for ICD-V76.51 Inactive Indigo Yokum 2015 malignant CABLEMAN neoplasms of colon Establish care or ICD-V68.89 Inactive Indigo Yokum get acquainted CABLEMAN visit Medication List Medication Instructions Start Stop Generic NDC Status Provider Patient Date Date Name Instruction PIOGLITAZONE take PIOGLITAZONE 46134789878 Active Maliheh Active HCL 30 MG ORAL one a HCL 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 100 MG 1 2 SITAGLIPTIN 53308964786 No Indigo Active TABS tablet 0 PHOSPHATE Longer Yokum by 1 Active CABLEMAN mouth 6 daily / 0 2 / 6 ATORVASTATIN 1 pill ATORVASTATIN 13089969841 Active Indigo Active CALCIUM 10 MG by CALCIUM Yokum TABS mouth CABLEMAN nightly , for cholest diana TROKENDI XR 100 1 tab TOPIRAMATE 26734981003 Active Indigo Active MG ORAL daily Yokum [id number] CABLEMAN ASPIRIN 81 MG 1 po qd ASPIRIN 11665722172 Active Indigo Active ORAL TABS Yokum CABLEMAN NITROFURANTOIN One 2 NITROFURANTOIN 89971752000 No Indigo Active MONOHYD MACRO capsule 0 MONOHYD MACRO Longer Yokum 100 MG CAPS BID for 1 Active CABLEMAN UTI 6 / 0 3 METFORMIN HCL 2 METFORMIN HCL 86338627239 Active Indigo Active 500 MG TB24 tablets Yokum by CABLEMAN mouth twice daily TRAMADOL HCL 50 1/2 po 2 TRAMADOL HCL 71556329010 No Jillina Active MG TABS tid 0 Longer Frazell with ES 1 Active CABLEMAN Tylenol 5 prn / pain 0 / 2 VYVANSE 20 MG 1 2 LISDEXAMFETAMIN 76714696150 No Jillina Active ORAL CAPS tablet 0 E DIMESYLATE Longer Frazell daily 1 Active CABLEMAN for 5 binge / eating 0 disorde 8 r / 1 2 LASIX 20 MG TAB 2 FUROSEMIDE 53162642569 Active Joseph W Active tablet Farooq DO by mouth daily CELEBREX 200 MG 1 CELECOXIB 11065013496 Active Joseph W Active CAPS tablet Farooq DO by mouth daily with meals PREDNISONE 20 2 2 PREDNISONE 20581211429 No Joseph W Active MG TAB tablets 0 Longer Farooq DO today, 1 Active then 1 5 tablet / days 0 2-4 4 3 DIFLUCAN 100 MG 1 2 FLUCONAZOLE 73854350974 No Joseph W Active TAB tablet 0 Longer Farooq DO by 1 Active mouth 5 daily x / 3 days 0 3 AMARYL 1 MG 1 GLIMEPIRIDE 56946155795 Active Joseph W Active ORAL TABS tablet Farooq DO orally twice daily DIFLUCAN 100 MG 1 2 FLUCONAZOLE 89664916470 No Joseph W Active TABS tablet 0 Longer Farooq DO by 1 Active mouth 5 every / other 0 day for 1 2 doses / 2 3 ZOFRAN 4 MG 1 po ONDANSETRON HCL 74454924161 Active Joseph W Active TABS q6hr Farooq DO PRN Nausea PREDNISONE 20 2 tabs 2 PREDNISONE 17563629319 No Joseph W Active MG TAB daily 0 Longer Farooq DO for 3 1 Active days, 1 4 tab / daily 1 for 3 0 days, / 1/2 tab 2 daily 5 for 2 days AMOXICILLIN 500 2 po 2 AMOXICILLIN 17262683488 No Maite C Active MG CAPS BID x 0 Longer Madril MD 10 days 1 Active PhD 4 / 1 0 / 2 0 LISINOPRIL 20 1 2 LISINOPRIL 26843409203 No Maite C Active MG TABS tablet 0 Longer Madril MD by 1 Active PhD mouth 4 daily / 1 0 / 1 0 POTASSIUM 2 2 POTASSIUM 47103781241 No Joseph W Active CHLORIDE CR 10 capsule 0 CHLORIDE Longer Farooq DO MEQ CPCR by 1 Active mouth 4 daily / 0 8 / 2 9 SPIRONOLACTONE 1 2 SPIRONOLACTONE 29061904900 No Joseph W Active 25 MG TAB tablet 0 Longer Farooq DO by 1 Active mouth 4 daily / 0 8 / 2 9 METFORMIN HCL 1 2 METFORMIN HCL 12141391482 No Joseph W Active 500 MG TABS tablet 0 Longer Farooq DO by 1 Active mouth 4 twice / daily 0 8 / 2 9 AMARYL 1 MG 1 tab 2 GLIMEPIRIDE 43608719136 No Joseph W Active TABS twice 0 Longer Farooq DO daily 1 Active 4 / 0 8 / 2 9 PHENTERMINE HCL 1 po q 2 PHENTERMINE HCL 18283456284 No Joseph W Active 37.5 MG TABS am for 0 Longer Farooq DO wt. 1 Active loss 3 / 1 2 / 2 3 PROMETHAZINE 1 tab 2 PROMETHAZINE 32200140481 No Joseph W Active HCL 25 MG TABS by 0 HCL Longer Farooq DO mouth 1 Active every 6 3 hours / as 0 needed 9 / 0 9 CIPROFLOXACIN Take 2 CIPROFLOXACIN 49204954773 No Joseph W Active HCL 500 MG TABS one (1) 0 HCL Longer Farooq DO tablet 1 Active by 3 mouth / twice a 0 day 9 / 0 9 ABILIFY 5 MG one 2 ARIPIPRAZOLE 30304942010 No Joseph W Active TABS p.o. q. 0 Longer [facility] day 1 Active 3 / 0 9 / 0 9 HYDROCHLOROTHIA 2 tabs 2 HYDROCHLOROTHIA 47224348607 No Joseph W Active ZIDE 25 MG TABS every 0 ZIDE Longer [facility] morning 1 Active 3 / 0 6 / 2 7 ABILIFY 2 MG 1 po q 2 ARIPIPRAZOLE 81591714677 No Joseph W Active TABS hs for 0 Longer [facility] major 1 Active depress 3 ion / 0 5 / 0 7 ADIPEX-P 37.5 1/2 tab 2 PHENTERMINE HCL 89118287404 No Casey Active MG CAPS po q am 0 Longer [place] PA for 1 Active weight 3 loss / 0 5 / 0 1 CIPRO 500 MG 1 2 CIPROFLOXACIN 78589156193 No Casey Active TAB tablet 0 HCL Longer [place] PA by 1 Active mouth 3 twice / daily 0 5 / 0 1 NECON 1/35 (28) 1 po 2 NORETHINDRONE-E 59671056536 No Casey Active 1-35 MG-MCG daily 0 TH ESTRADIOL Longer [place] PA TABS 1 Active 3 / 0 5 / 0 1 TRAMADOL HCL 50 1 po 2 TRAMADOL HCL 98290970034 No Casey Active MG TABS tid 0 Longer [place] PA with ES 1 Active Tylenol 3 / 0 5 / 0 1 FLUCONAZOLE 100 one 2 FLUCONAZOLE 19939402478 No Casey Active MG TABS p.o. q. 0 Longer [facility] day 2 1 Active days 3 / 0 5 / 0 1 POTASSIUM 1 2 POTASSIUM 90135378458 No Casey Active CHLORIDE CR 10 capsule 0 CHLORIDE Longer [place] PA MEQ CPCR by 1 Active mouth 3 daily / 0 5 / 0 1 IMIPRAMINE HCL Take 6 IMIPRAMINE HCL 68741173719 Active Joseph W Active 50 MG TABS tablets Farooq DO by mouth at bedtime DIFLUCAN 100 MG 1 2 FLUCONAZOLE 38591097497 No Joseph W Active TAB tablet 0 Longer Farooq DO by 1 Active mouth 2 daily / 0 2 / 2 4 METOPROLOL 1/2 tab METOPROLOL 33569785368 Active Joseph W Active TARTRATE 25 MG po bid TARTRATE Farooq DO TABS VERAPAMIL HCL 2 po VERAPAMIL HCL 92511639162 Active Joseph W Active CR 120 MG TAB bid Farooq DO CR PERMETHRIN 5 % apply 2 PERMETHRIN 30769586282 No Joseph W Active CREA neck to 0 Longer Farooq DO toes 1 Active tonight 2 and / then 0 rinse 1 off in / morning 2 . 0 repeat at 7 days SEROQUEL XR 50 one 2 QUETIAPINE 88806341807 No Joseph W Active MG [id number] p.o. q. 0 FUMARATE Longer Farooq DO evening 1 Active 2 / 0 1 / 2 0 TRAMADOL HCL 50 1-2 2 TRAMADOL HCL 34323364898 No Joseph W Active MG TABS tablets 0 Longer Farooq DO every 1 Active 6-8 2 hours / as 0 needed 1 for / pain 2 0 ALPRAZOLAM 3 MG one ALPRAZOLAM 32976514510 Active Indigo Active [id number] p.o. Yokum q.h.s. CABLEMAN ALPRAZOLAM XR Take 1 2 ALPRAZOLAM 40776754611 No Joseph W Active [id number] tablet 0 [id number] Longer Farooq DO by 1 Active mouth 1 at / bedtime 1 1 / 2 9 DIFLUCAN 100 MG 1 2 FLUCONAZOLE 93507534141 No Joseph W Active TAB tablet 0 Longer Farooq DO by 1 Active mouth 1 daily / 1 0 / 0 6 AMBIEN 10 MG 1 tab ZOLPIDEM 10394687279 Active Afsaneh Active TAB by TARTRATE Gericke, mouth MA at bedtime as needed for sleep DIFLUCAN 100 1 tablet DIFLUCAN 387425 FLUCONAZOLE Inactive MG TAB by mouth 100 MG TAB daily ALPRAZOLAM Take 1 ALPRAZOLAM ALPRAZOLAM Inactive XR [id number] tablet by XR [id number] mouth at [id number] bedtime TRAMADOL HCL 1-2 TRAMADOL 434160 TRAMADOL HCL Inactive 50 MG TABS tablets HCL 50 MG every 6-8 TABS hours as needed for pain SEROQUEL XR one p.o. SEROQUEL XR QUETIAPINE Inactive 50 MG q. 50 MG FUMARATE [id number] evening [id number] PERMETHRIN 5 apply PERMETHRIN 018389 PERMETHRIN Inactive % CREA neck to 5 % CREA toes tonight and then rinse off in morning. repeat at 7 days DIFLUCAN 100 1 tablet DIFLUCAN 998989 FLUCONAZOLE Inactive MG TAB by mouth 100 MG TAB daily POTASSIUM 1 capsule POTASSIUM POTASSIUM Inactive CHLORIDE CR by mouth CHLORIDE CR CHLORIDE 10 MEQ CPCR daily 10 MEQ CPCR FLUCONAZOLE one p.o. FLUCONAZOLE 19760111 FLUCONAZOLE Inactive 100 MG TABS q. day 2 100 MG TABS days TRAMADOL HCL 1 po tid TRAMADOL 755369 TRAMADOL HCL Inactive 50 MG TABS with ES HCL 50 MG Tylenol TABS NECON 1/35 1 po NECON 1/35 NORETHINDRONE- Inactive (28) 1-35 daily (28) 1-35 ETH ESTRADIOL MG-MCG TABS MG-MCG TABS CIPRO 500 MG 1 tablet CIPRO 500 808549 CIPROFLOXACIN Inactive TAB by mouth MG TAB HCL twice daily ADIPEX-P 1/2 tab ADIPEX-P 068743 PHENTERMINE Inactive 37.5 MG CAPS po q am 37.5 MG HCL for CAPS weight loss ABILIFY 2 MG 1 po q hs ABILIFY 2 982029 ARIPIPRAZOLE Inactive TABS for major MG TABS depressio n HYDROCHLOROT 2 tabs HYDROCHLORO 252281 HYDROCHLOROTHI Inactive HIAZIDE 25 every THIAZIDE 25 AZIDE MG TABS morning MG TABS ABILIFY 5 MG one p.o. ABILIFY 5 784526 ARIPIPRAZOLE Inactive TABS q. day MG TABS CIPROFLOXACI Take one CIPROFLOXAC 076974 CIPROFLOXACIN Inactive N HCL 500 MG (1) IN HCL 500 HCL TABS tablet by MG TABS mouth twice a day PROMETHAZINE 1 tab by PROMETHAZIN 812158 PROMETHAZINE Inactive HCL 25 MG mouth E HCL 25 MG HCL TABS every 6 TABS hours as needed PHENTERMINE 1 po q am PHENTERMINE 137755 PHENTERMINE Inactive HCL 37.5 MG for wt. HCL 37.5 MG HCL TABS loss TABS AMARYL 1 MG 1 tab AMARYL 1 MG 481514 GLIMEPIRIDE Inactive TABS twice TABS daily METFORMIN 1 tablet METFORMIN 536699 METFORMIN HCL Inactive HCL 500 MG by mouth HCL 500 MG TABS twice TABS daily SPIRONOLACTO 1 tablet SPIRONOLACT 593958 SPIRONOLACTONE Inactive NE 25 MG TAB by mouth ONE 25 MG daily TAB POTASSIUM 2 capsule POTASSIUM POTASSIUM Inactive CHLORIDE CR by mouth CHLORIDE CR CHLORIDE 10 MEQ CPCR daily 10 MEQ CPCR LISINOPRIL 1 tablet LISINOPRIL 398494 LISINOPRIL Inactive 20 MG TABS by mouth 20 MG TABS daily DIFLUCAN 100 1 tablet DIFLUCAN 863022 FLUCONAZOLE Inactive MG TABS by mouth 100 MG TABS every other day for 2 doses DIFLUCAN 100 1 tablet DIFLUCAN 114793 FLUCONAZOLE Inactive MG TAB by mouth 100 MG TAB daily x 3 days PREDNISONE 2 tablets PREDNISONE 198142 PREDNISONE Inactive 20 MG TAB today, 20 MG TAB then 1 tablet days 2-4 VYVANSE 20 1 tablet VYVANSE 20 LISDEXAMFETAMI Inactive MG ORAL CAPS daily for MG ORAL NE DIMESYLATE binge CAPS eating disorder TRAMADOL HCL 1/2 po TRAMADOL 721497 TRAMADOL HCL Inactive 50 MG TABS tid with HCL 50 MG ES TABS Tylenol prn pain JANUVIA 100 1 tablet JANUVIA 100 SITAGLIPTIN Inactive MG TABS by mouth MG TABS PHOSPHATE daily AMOXICILLIN 2 po BID AMOXICILLIN 328537 AMOXICILLIN Inactive 500 MG CAPS x 10 days 500 MG CAPS PREDNISONE 2 tabs PREDNISONE 597159 PREDNISONE Inactive 20 MG TAB daily for 20 MG TAB 3 days, 1 tab daily for 3 days, 1/2 tab daily for 2 days NITROFURANTO One NITROFURANT 1668152 NITROFURANTOIN Inactive IN MONOHYD capsule OIN MONOHYD [...] HGBA1C - Chemistry sodium, serum 140 mmol/L 774-719 6118/04/13 potassium, serum 3.9 mmol/L 3.5-5.2 chloride, serum [...] 198 10^3/MM^3 10*3/mm3 142-424 Lab Report: Chlamydia/GC APTIMA/33600 - Lab chlamydia DNA probe NOT DETECTED NOT DETECTED Lab Report: Chlamydia/GC APTIMA/79482 - Microbiology Neisseria gonorrhoeae DNA probe NOT DETECTED NOT DETECTED Lab Report: Comp. Metabolic Panel, Lipid Panel - Chemistry sodium, serum 136 mmol/L 179-861 2951/01/04 carbon dioxide, venous blood 27.0 mmol/L 21.0-32.0 potassium, serum 4.6 mmol/L 3.5-5.2 chloride, serum 98 mmol/L 98-107 blood glucose 174 mg/dL 65-110 urea nitrogen, blood 12 mg/dL 7-18 creatinine, serum 0.78 mg/dL 0.55-1.30 alanine aminotransferase (SGPT), serum 65 U/L 12-78 aspartate aminotransferase (SGOT), serum 34 U/L 15-37 calcium, serum 8.9 mg/dL 8.5-10.1 bilirubin, serum, total 0.40 mg/dL 0.00-1.00 cholesterol, serum 219 mg/dL 358-451 3843/01/04 triglyceride, serum, fasting 214 mg/dL 30-200 HDL [...] mg/g mg/g{creat} 0-29 sodium, serum 140 mmol/L 183-316 9262/07/21 potassium, serum 3.9 mmol/L 3.5-5.2 chloride, serum [...] Yes Encounters Code Encounter Date Provider Facility CPT-80023 Level 4 Est. 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 Patient [facility] 09:51:54 WOOD TYPE CUTTER CPT-26419 Level 3 Est. Patient [facility] 18:59:38 CDT CPT-87393 Level 3 Est. Patient [facility] 14:42:12 CDT -RHC CPT-91275 Level 3 Est. Patient Joseph Pineda [facility] 22:18:20 CDT -RHC CPT-28032 Level 3 Est. Patient [facility] 16:46:04 CDT -RHC CPT-16563 Level 3 Est. Patient Joseph Pineda [facility] 15:39:53 CDT -RHC CPT-45234 Level 3 Est. Patient Maite Sanchez MD [facility] 13:33:34 CDT -RHC CPT-46820 Level 3 Est. Patient Joseph W [facility] 11:37:08 CDT -RHC CPT-36556 Level 3 Est. Patient Joseph Pineda [facility] 17:13:29 WOOD TYPE CUTTER -RHC CPT-57362 Level 3 Est. Patient [facility] 18:42:44 CDT CPT-22243 Level 3 Est. Patient [place] [facility] 16:25:39 CDT CPT-81454 Level 3 Est. Patient Casey Garzaner [facility] 09:52:45 CDT -RHC CPT-51766 Level 3 Est. Patient [facility] 11:03:29 WOOD TYPE CUTTER -RHC CPT-37383 Level 3 Est. Patient [facility] 11:03:08 WOOD TYPE CUTTER -RHC CPT-00610 Level 3 Est. Patient [facility] 14:33:31 CDT -RHC CPT-43958 Level 3 Est. Patient [facility] 17:05:02 WOOD TYPE CUTTER -RHC CPT-73421 Level 3 Est. Patient [facility] 17:48:06 WOOD TYPE CUTTER -RHC CPT-00904 Level 3 Est. Patient [facility] 14:59:22 WOOD TYPE CUTTER -RHC CPT-62131 Level 3 Est. Patient [facility] - 21:45:56 WOOD TYPE CUTTER Jose RHC CPT-61610 Level 3 Est. Patient [facility] 21:29:50 CDT -RHC CPT-80542 Level 3 Est. Patient [facility] 12:41:09 CDT -RHC Procedures Code Procedure Name Date Entry Date Standard Description CPT-JTINJ Asp/Joint Injection 09:51:53 WOOD TYPE CUTTER CPT-OV Office Visit 17:39:05 CDT CPT-OV Office Visit 15:19:50 CDT CPT-44466 Sono transvag pelvis non OB uterus ovaries cervix 18:04:34 T CPT-46303 Venipuncture Draw Fee 08:55:49 WOOD TYPE CUTTER
--- OUTSIDE RECORDS SUMMARY | 2016-11-20 13:50 | External Medical Summary | Clinical Summary ---
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 [employer]OL[employer] INSTALLER disorder of initiating or maintaining sleep Establish care V68.89 Active Indigo Encounters for or get 01/16 01/18 [place] RO[employer]OLER INSTALLER other specified acquainted administrative visit purpose Weakness, left 342.90 Active Indigo Hemiplegia, side of body 06/20 06/20 [place] RO[employer]OLER INSTALLER unspecified, affecting unspecified side ABNORMAL VAGINAL ICD-626.9 [...] Name Instruction ATORVASTATIN 1 pill by ATORVASTATIN 43086002425 Active Indigo Active CALCIUM 10 MG mouth CALCIUM [place] TABS nightly, for ROOM COOLER INSTALLER cholesterol TROKENDI XR 1 tab daily TOPIRAMATE 77242535258 Active Indigo Active 100 MG ORAL [place] [id number] ROOM COOLER INSTALLER ASPIRIN 81 MG 1 po qd ASPIRIN 99021351127 Active Indigo Active ORAL TABS [place] ROOM COOLER INSTALLER NITROFURANTOIN One capsule 2 NITROFURANTOIN 99810626819 No Indigo Active MONOHYD MACRO BID for UTI 0 MONOHYD MACRO Longer [place] 100 MG CAPS 1 Active ROOM COOLER INSTALLER 6 / 0 2 / 1 3 JANUVIA 100 MG 1 tablet by SITAGLIPTIN 31041747275 Active Indigo Active TABS mouth daily PHOSPHATE [place] ROOM [employer]OLER INSTALLER METFORMIN HCL 2 tablets by METFORMIN HCL 95108545180 Active Indigo Active 500 MG TB24 mouth twice [place] daily ROOM CO[employer]ER INSTALLER TRAMADOL HCL 1/2 po tid 2 TRAMADOL HCL 59854511621 No Jillin Active 50 MG TABS with ES 0 Longer a Tylenol prn 1 Active Frazel pain 5 l ROOM COOLER INSTALLER / 0 8 / 1 2 VYVANSE 20 MG 1 tablet 2 LISDEXAMFETAMI 48158615508 No Jillin Active ORAL CAPS daily for 0 NE DIMESYLATE Longer a binge eating 1 Active Frazel disorder 5 l ROOM COOLER INSTALLER / 0 8 / 1 2 LASIX 20 MG 2 tablet by FUROSEMIDE 14729040680 Active Joseph Active TAB mouth daily W [place] DO CELEBREX 200 1 tablet by CELECOXIB 01162371391 Active Joseph Active MG CAPS mouth daily W [place] with meals DO PREDNISONE 20 2 tablets 2 PREDNISONE 07581892938 No Joseph Active MG TAB today, then 0 Longer [place] 1 tablet 1 Active DO days 2-4 5 / 0 4 / 3 DIFLUCAN 100 1 tablet by 2 FLUCONAZOLE 89849879143 No Joseph Active MG TAB mouth daily 0 Longer W [place] x 3 days 1 Active DO 5 / 0 3 AMARYL 1 MG 1 tablet GLIMEPIRIDE 73097788765 Active Joseph Active ORAL TABS orally twice W [place] daily DO DIFLUCAN 100 1 tablet by 2 FLUCONAZOLE 29036886336 No Joseph Active MG TABS mouth every 0 Longer W [place] other day 1 Active DO for 2 doses 5 / 0 1 / 2 3 ZOFRAN 4 MG 1 po q6hr ONDANSETRON 44339850153 Active Joseph Active TABS PRN Nausea HCL W [place] DO PREDNISONE 20 2 tabs daily 2 PREDNISONE 25513731177 No Joseph Active MG TAB for 3 days, 0 Longer [place] 1 tab daily 1 Active DO for 3 days, 4 1/2 tab / daily for 2 1 days 0 / 2 5 AMOXICILLIN 2 po BID x 2 AMOXICILLIN 76463077042 No Maite C Active 500 MG CAPS 10 days 0 Longer Madril 1 Active PhD 0 / 2 0 LISINOPRIL 20 1 tablet by 2 LISINOPRIL 63904942244 No Maite C Active MG TABS mouth daily 0 Longer Madril 1 Active PhD 0 / 1 0 POTASSIUM 2 capsule by 2 POTASSIUM 27606899922 No Joseph Active CHLORIDE CR 10 mouth daily 0 CHLORIDE Longer W [place] MEQ CPCR 1 Active DO 4 / 0 8 / 2 9 SPIRONOLACTONE 1 tablet by 2 SPIRONOLACTONE 76350644781 No Joseph Active 25 MG TAB mouth daily 0 Longer W [place] 1 Active DO 4 / 0 8 / 2 9 METFORMIN HCL 1 tablet by 2 METFORMIN HCL 54759531167 No Joseph Active 500 MG TABS mouth twice 0 Longer [place] daily 1 Active DO 4 / 0 8 / 2 9 AMARYL 1 MG 1 tab twice 2 GLIMEPIRIDE 16962099624 No Joseph Active TABS daily 0 Longer [place] 1 Active DO 4 / 0 8 / 2 9 PHENTERMINE 1 po q am 2 PHENTERMINE 99785850454 No Joseph Active HCL 37.5 MG for wt. loss 0 HCL Longer W [place] TABS 1 Active DO 3 / 1 2 / 2 3 PROMETHAZINE 1 tab by 2 PROMETHAZINE 23438582881 No Joseph Active HCL 25 MG TABS mouth every 0 HCL Longer [place] 6 hours as 1 Active DO needed 3 / 0 9 / 0 9 CIPROFLOXACIN Take one (1) 2 CIPROFLOXACIN 06174184763 No Joseph Active HCL 500 MG tablet by 0 HCL Longer [place] TABS mouth twice 1 Active DO a day 3 / 0 9 / 0 9 ABILIFY 5 MG one p.o. q. 2 ARIPIPRAZOLE 11880210132 No Joseph Active TABS day 0 Longer [place] 1 Active DO 3 / 0 9 / 0 9 HYDROCHLOROTHI 2 tabs every 2 HYDROCHLOROTHI 14443975320 No Joseph Active AZIDE 25 MG morning 0 AZIDE Longer [place] TABS 1 Active DO 3 / 0 6 / 2 7 ABILIFY 2 MG 1 po q hs 2 ARIPIPRAZOLE 08904108118 No Joseph Active TABS for major 0 Longer [place] depression 1 Active DO 3 / 0 5 / 0 7 ADIPEX-P 37.5 1/2 tab po q 2 PHENTERMINE 65661782181 No Casey Active MG CAPS am for 0 HCL Longer [place] weight loss 1 Active PA 3 / 0 5 / 0 1 CIPRO 500 MG 1 tablet by 2 CIPROFLOXACIN 85336151562 No Casey Active TAB mouth twice 0 HCL Longer [place] daily 1 Active PA 3 / 0 5 / 0 1 NECON 1/35 1 po daily 2 NORETHINDRONE- 36288654106 No Casey Active (28) 1-35 0 ETH ESTRADIOL Longer Leonarda MG-MCG TABS 1 Active PA 3 / 0 5 / 0 1 TRAMADOL HCL 1 po tid 2 TRAMADOL HCL 35786331359 No Casey Active 50 MG TABS with ES 0 Longer [place] Tylenol 1 Active PA 3 / 0 5 / 0 1 FLUCONAZOLE one p.o. q. 2 FLUCONAZOLE 82281524796 No Casey Active 100 MG TABS day 2 days 0 Longer [place] 1 Active PA 3 / 0 5 / 0 1 POTASSIUM 1 capsule by 2 POTASSIUM 67726240057 No Casey Active CHLORIDE CR 10 mouth daily 0 CHLORIDE Longer [place] MEQ CPCR 1 Active PA 3 / 0 5 / 0 1 IMIPRAMINE HCL Take 6 IMIPRAMINE HCL 25781876530 Active Joseph Active 50 MG TABS tablets by W [place]q mouth at DO bedtime DIFLUCAN 100 1 tablet by 2 FLUCONAZOLE 93240574529 No Joseph Active MG TAB mouth daily 0 Longer [place] 1 Active DO 2 / 0 2 / 2 4 METOPROLOL 1/2 tab po METOPROLOL 66084271612 Active Joseph Active TARTRATE 25 MG bid TARTRATE W [place] TABS DO VERAPAMIL HCL 2 po bid VERAPAMIL HCL 90177473995 Active Joseph Active CR 120 MG TAB W [place] CR DO PERMETHRIN 5 % apply neck 2 PERMETHRIN 60013126224 No Joseph Active CREA to toes 0 Longer [place] tonight and 1 Active DO then rinse 2 off in / morning. 0 repeat at 7 1 days / 2 0 SEROQUEL XR 50 one p.o. q. 2 QUETIAPINE 65409853384 No Joseph Active MG [id number] evening 0 FUMARATE Longer [place] 1 Active DO 2 / 0 1 / 2 0 TRAMADOL HCL 1-2 tablets 2 TRAMADOL HCL 91674185352 No Joseph Active 50 MG TABS every 6-8 0 Longer [place] hours as 1 Active DO needed for 2 pain / 0 1 / 2 0 ALPRAZOLAM 3 one p.o. ALPRAZOLAM 88240062487 Active Indigo Active MG [id number] q.h.s. [place] ROOM COOLER INSTALLER ALPRAZOLAM XR Take 1 2 ALPRAZOLAM 04333388638 No Joseph Active [id number] tablet by 0 [id number] Longer [place] mouth at 1 Active DO bedtime 1 / 2 9 DIFLUCAN 100 1 tablet by 2 FLUCONAZOLE 21979886345 No Joseph Active MG TAB mouth daily 0 Longer [place] 1 Active DO 0 / 0 6 AMBIEN 10 MG 1 tab by ZOLPIDEM 12926844258 Active Livan Active TAB mouth at TARTRATE le bedtime as Gerick needed for e, MA sleep DIFLUCAN 100 1 tablet DIFLUCAN 004497 FLUCONAZOLE Inactive MG TAB by mouth 100 MG TAB daily ALPRAZOLAM Take 1 ALPRAZOLAM ALPRAZOLAM Inactive XR [id number] tablet by XR [id number] mouth at [id number] bedtime TRAMADOL HCL 1-2 TRAMADOL 170239 TRAMADOL HCL Inactive 50 MG TABS tablets HCL 50 MG every 6-8 TABS hours as needed for pain SEROQUEL XR one p.o. SEROQUEL XR QUETIAPINE Inactive 50 MG q. 50 MG FUMARATE [id number] evening [id number] PERMETHRIN 5 apply PERMETHRIN 379071 PERMETHRIN Inactive % CREA neck to 5 % CREA toes tonight and then rinse off in morning. repeat at 7 days DIFLUCAN 100 1 tablet DIFLUCAN 812966 FLUCONAZOLE Inactive MG TAB by mouth 100 MG TAB daily POTASSIUM 1 capsule POTASSIUM POTASSIUM Inactive CHLORIDE CR by mouth CHLORIDE CR CHLORIDE 10 MEQ CPCR daily 10 MEQ CPCR FLUCONAZOLE one p.o. FLUCONAZOLE 19760111 FLUCONAZOLE Inactive 100 MG TABS q. day 2 100 MG TABS days TRAMADOL HCL 1 po tid TRAMADOL 833933 TRAMADOL HCL Inactive 50 MG TABS with ES HCL 50 MG Tylenol TABS NECON 1/35 1 po NECON 1/35 NORETHINDRONE- Inactive (28) 1-35 daily (28) 1-35 ETH ESTRADIOL MG-MCG TABS MG-MCG TABS CIPRO 500 MG 1 tablet CIPRO 500 065360 CIPROFLOXACIN Inactive TAB by mouth MG TAB HCL twice daily ADIPEX-P 1/2 tab ADIPEX-P 307263 PHENTERMINE Inactive 37.5 MG CAPS po q am 37.5 MG HCL for CAPS weight loss ABILIFY 2 MG 1 po q hs ABILIFY 2 638655 ARIPIPRAZOLE Inactive TABS for major MG TABS depressio n HYDROCHLOROT 2 tabs HYDROCHLORO 676684 HYDROCHLOROTHI Inactive HIAZIDE 25 every THIAZIDE 25 AZIDE MG TABS morning MG TABS ABILIFY 5 MG one p.o. ABILIFY 5 956115 ARIPIPRAZOLE Inactive TABS q. day MG TABS CIPROFLOXACI Take one CIPROFLOXAC 757001 CIPROFLOXACIN Inactive N HCL 500 MG (1) IN HCL 500 HCL TABS tablet by MG TABS mouth twice a day PROMETHAZINE 1 tab by PROMETHAZIN 578489 PROMETHAZINE Inactive HCL 25 MG mouth E HCL 25 MG HCL TABS every 6 TABS hours as needed PHENTERMINE 1 po q am PHENTERMINE 391599 PHENTERMINE Inactive HCL 37.5 MG for wt. HCL 37.5 MG HCL TABS loss TABS AMARYL 1 MG 1 tab AMARYL 1 MG 158011 GLIMEPIRIDE Inactive TABS twice TABS daily METFORMIN 1 tablet METFORMIN 678316 METFORMIN HCL Inactive HCL 500 MG by mouth HCL 500 MG TABS twice TABS daily SPIRONOLACTO 1 tablet SPIRONOLACT 328472 SPIRONOLACTONE Inactive NE 25 MG TAB by mouth ONE 25 MG daily TAB POTASSIUM 2 capsule POTASSIUM POTASSIUM Inactive CHLORIDE CR by mouth CHLORIDE CR CHLORIDE 10 MEQ CPCR daily 10 MEQ CPCR LISINOPRIL 1 tablet LISINOPRIL 558350 LISINOPRIL Inactive 20 MG TABS by mouth 20 MG TABS daily DIFLUCAN 100 1 tablet DIFLUCAN 626732 FLUCONAZOLE Inactive MG TABS by mouth 100 MG TABS every other day for 2 doses DIFLUCAN 100 1 tablet DIFLUCAN 828364 FLUCONAZOLE Inactive MG TAB by mouth 100 MG TAB daily x 3 days PREDNISONE 2 tablets PREDNISONE 261854 PREDNISONE Inactive 20 MG TAB today, 20 MG TAB then 1 tablet days 2-4 VYVANSE 20 1 tablet VYVANSE 20 LISDEXAMFETAMI Inactive MG ORAL CAPS daily for MG ORAL NE DIMESYLATE binge CAPS eating disorder TRAMADOL HCL 1/2 po TRAMADOL 440392 TRAMADOL HCL Inactive 50 MG TABS tid with HCL 50 MG ES TABS Tylenol prn pain AMOXICILLIN 2 po BID AMOXICILLIN 501019 AMOXICILLIN Inactive 500 MG CAPS x 10 days 500 MG CAPS PREDNISONE 2 tabs PREDNISONE 598821 PREDNISONE Inactive 20 MG TAB daily for 20 MG TAB 3 days, 1 tab daily for 3 days, 1/2 tab daily for 2 days NITROFURANTO One NITROFURANT 3853809 NITROFURANTOIN Inactive IN MONOHYD capsule OIN MONOHYD [...] HGBA1C - Chemistry sodium, serum 140 mmol/L 026-355 4765/04/13 potassium, serum 3.9 mmol/L 3.5-5.2 chloride, serum [...] 198 10^3/MM^3 10*3/mm3 142-424 Lab Report: Chlamydia/GC APTIMA/[id number] - Lab chlamydia DNA probe NOT DETECTED NOT DETECTED Lab Report: Chlamydia/GC APTIMA/[id number] - Microbiology Neisseria gonorrhoeae DNA probe NOT DETECTED NOT DETECTED Lab Report: Comp. Metabolic Panel, Lipid Panel - Chemistry sodium, serum 136 mmol/L 705-480 9264/01/04 carbon dioxide, venous blood 27.0 mmol/L 21.0-32.0 potassium, serum 4.6 mmol/L 3.5-5.2 chloride, serum 98 mmol/L 98-107 blood glucose 174 mg/dL 65-110 urea nitrogen, blood 12 mg/dL 7-18 creatinine, serum 0.78 mg/dL 0.55-1.30 alanine aminotransferase (SGPT), serum 65 U/L 12-78 aspartate aminotransferase (SGOT), serum 34 U/L 15-37 calcium, serum 8.9 mg/dL 8.5-10.1 bilirubin, serum, total 0.40 mg/dL 0.00-1.00 cholesterol, serum 219 mg/dL 875-056 2315/01/04 triglyceride, serum, fasting 214 mg/dL 30-200 HDL [...] mg/g mg/g{creat} 0-29 sodium, serum 140 mmol/L 389-639 6243/07/21 potassium, serum 3.9 mmol/L 3.5-5.2 chloride, serum [...] 142-424 Encounters Code Encounter Date Provider Facility CPT-31496 Level 3 Est. Patient Indigo Sexton APRN [facility] 18:59:38 CDT CPT-11962 Level 3 Est. Patient [facility] 14:42:12 CDT -[facility] CPT-70486 Level 3 Est. Patient [facility] 22:18:20 CDT -[facility] CPT-06426 Level 3 Est. Patient [facility] 16:46:04 CDT -[facility] CPT-30430 Level 3 Est. Patient [facility] 15:39:53 CDT -[facility] CPT-88520 Level 3 Est. Patient Maite Sanchez MD PhD [facility] 13:33:34 CDT -[facility] CPT-10184 Level 3 Est. Patient [facility] 11:37:08 CDT -[facility] CPT-40685 Level 3 Est. 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 Patient [facility] 18:42:44 CDT CPT-33589 Level 3 Est. Patient [facility] 16:25:39 CDT CPT-17332 Level 3 Est. Patient Casey ARCHIBALD [facility] 09:52:45 CDT -[facility] CPT-14633 Level 3 Est. Patient [facility] 11:03:29 BLUEPRINT DUPLICATOR -[facility] CPT-74723 Level 3 Est. Patient [facility] 11:03:08 BLUEPRINT DUPLICATOR -[facility] CPT-42737 Level 3 Est. Patient [facility] 14:33:31 CDT -[facility] CPT-66796 Level 3 Est. [address] [facility] 17:05:02 BLUEPRINT DUPLICATOR -[facility] CPT-65159 Level 3 Est. Patient Joesph Pineda [facility] 17:48:06 BLUEPRINT DUPLICATOR -[facility] CPT-29514 Level 3 Est. Patient Joseph Pineda [facility] 14:59:22 BLUEPRINT DUPLICATOR -[facility] CPT-85929 Level 3 Est. Patient Joseph [facility] - 21:45:56 BLUEPRINT DUPLICATOR [facility] CPT-63762 Level 3 Est. Patient [facility] 21:29:50 CDT -[facility] CPT-44933 Level 3 Est. Patient [facility] 12:41:09 CDT -[facility] Procedures Code Procedure Name Date Entry Date Standard Description CPT-OV Office Visit 17:39:05 CDT CPT-OV Office Visit 15:19:50 CDT CPT-03580 Sono transvag pelvis non OB uterus ovaries cervix 18:04:34 CDT CPT-84784 Venipuncture Draw Fee 08:55:49 BLUEPRINT DUPLICATOR
--- OUTSIDE RECORDS SUMMARY | 2016-11-20 13:51 | External Medical Summary | Clinical Summary ---
:1965 Author Organization [facility] Address [address] [place] [address] Phone Allergies, Adverse Reactions, Alerts Allergy Name [...] Routine gynecological 12/14 12/14 [place] gynecological examination DIRECTOR DRUG SAFETY examination Postmenopausal 627.1 Active Jillina Postmenopausal bleeding 12/14 12/14 [place] bleeding DIRECTOR DRUG SAFETY ABNORMAL VAGINAL ICD-626.9 Inactive Maite Sanchez BLEEDING PhD SCABIES ICD-133.0 Inactive Maite Sanchez PhD OT GENERAL ICD-V70.3 Inactive Maite Sanchez MEDICAL PhD EXAMINATION ADMIN PURPOSES OTHER ABNORMAL ICD-790.29 Inactive Maite Sanchez GLUCOSE PhD ACUTE BRONCHITIS ICD-466.0 Inactive Maite Sanchez PhD Medication List Medication Instructions Start Stop Generic NDC Status Provider Patient Date Date Name Instruction TRAMADOL / po TRAMADOL [id number] No Jillina Active HCL 50 MG tid with HCL Longer [place] TABS ES Active DIRECTOR DRUG SAFETY Tylenol prn pain VYVANSE 20 1 tablet LISDEXAMF 84162225795 No Jillina Active MG ORAL daily for ETAMINE Longer [place] CAPS binge DIMESYLAT Active DIRECTOR DRUG SAFETY eating E disorder METFORMIN 2 tablet METFORMIN 81686983915 Active Joseph W Active HCL 500 MG daily for HCL Farooq DO TB24 blood sugars LASIX 20 2 tablet FUROSEMID 86521445492 Active Joseph Pineda Active MG TAB by mouth E Farooq DO daily CELEBREX 1 tablet CELECOXIB 24392839426 Active Joseph W Active 200 MG by mouth Farooq DO CAPS daily with meals PREDNISONE 2 tablets PREDNISON 77330175848 No Joseph W Active 20 MG TAB today, E Longer Farooq DO then 1 Active tablet days 2-4 DIFLUCAN 1 tablet FLUCONAZO 38061407052 No Joseph W Active 100 MG TAB by mouth LE Longer Farooq DO daily x 3 Active days AMARYL 1 1 tablet GLIMEPIRI 43851744703 Active Joseph Pineda Active MG ORAL orally DE Farooq DO TABS twice daily DIFLUCAN 1 tablet FLUCONAZO 78297762962 No Joseph Pineda Active 100 MG by mouth LE Longer Farooq DO TABS every Active other day for 2 doses ZOFRAN 4 1 po q6hr ONDANSETR 29068535140 Active Bam Pineda Active MG TABS PRN ON HCL Dillow Nausea PREDNISONE 2 tabs PREDNISON 70585985756 No Joseph Pineda Active 20 MG TAB daily for E Longer Farooq DO 3 days, 1 Active tab daily for 3 days, 1/2 tab daily for 2 days AMOXICILLI 2 po BID AMOXICILL 17685261492 No Maite C Active N 500 MG x 10 days IN Longer Madril CAPS Active PhD LISINOPRIL 1 tablet LISINOPRI 43116901878 No Maite C Active 20 MG TABS by mouth L Longer Madril daily Active PhD POTASSIUM 2 capsule POTASSIUM 71106949142 No Joseph Pineda Active CHLORIDE by mouth CHLORIDE Longer Farooq DO CR 10 MEQ daily Active CPCR SPIRONOLAC 1 tablet SPIRONOLA 95316541600 No Joseph W Active TONE 25 MG by mouth CTONE Longer Farooq DO TAB daily Active METFORMIN 1 tablet METFORMIN 96322746453 No Joseph W Active HCL 500 MG by mouth HCL Longer Farooq DO TABS twice Active daily AMARYL 1 1 tab GLIMEPIRI 45136335059 No Joseph W Active MG TABS twice DE Longer Farooq DO daily Active PHENTERMIN 1 po q am PHENTERMI 61009601452 No Joseph W Active E HCL 37.5 for wt. NE HCL Longer Farooq DO MG TABS loss Active PROMETHAZI 1 tab by PROMETHAZ 75041133447 No Joseph W Active NE HCL 25 mouth INE HCL Longer Farooq DO MG TABS every 6 Active hours as needed CIPROFLOXA Take one CIPROFLOX 41687731727 No Joseph W Active DELORES HCL (1) ACIN HCL Longer Farooq DO 500 MG tablet by Active TABS mouth twice a day ABILIFY 5 one p.o. ARIPIPRAZ 25815107929 No Joseph W Active MG TABS q. day OLE Longer Farooq DO Active HYDROCHLOR 2 tabs HYDROCHLO 04529330829 No Joseph W Active OTHIAZIDE every ROTHIAZID Longer Farooq DO 25 MG TABS morning E Active ABILIFY 2 1 po q hs ARIPIPRAZ 51715083267 No Joseph W Active MG TABS for major OLE Longer Farooq DO depressio Active n ADIPEX-P 1/2 tab PHENTERMI 49397212297 No Casey Active 37.5 MG po q am NE HCL [place] CAPS for Active PA weight loss CIPRO 500 1 tablet CIPROFLOX 48774677187 No Casey Active MG TAB by mouth ACIN HCL Longer [place] twice Active PA daily NECON 1/35 1 po NORETHIND 34253146565 No Casey Active (28) 1-35 daily LINDA-ETH Longer Leonarda MG-MCG ESTRADIOL Active PA TABS TRAMADOL 1 po tid TRAMADOL 32534840748 No Casey Active HCL 50 MG with ES HCL Longer [place] TABS Tylenol Active PA FLUCONAZOL one p.o. FLUCONAZO 26608906160 No Casey Active E 100 MG q. day 2 LE Longer [place] TABS days Active PA POTASSIUM 1 capsule POTASSIUM 44399568219 No Casey Active CHLORIDE by mouth CHLORIDE Longer [place] CR 10 MEQ daily Active PA CPCR IMIPRAMINE Take 6 IMIPRAMIN 82192158668 Active Joseph Pineda Active HCL 50 MG tablets E HCL Farooq DO TABS by mouth at bedtime DIFLUCAN 1 tablet FLUCONAZO 40055213307 No Joseph W Active 100 MG TAB by mouth LE Longer Farooq DO daily Active METOPROLOL 1/2 tab METOPROLO 76831137315 Active Joseph W Active TARTRATE po bid L Farooq DO 25 MG TABS TARTRATE VERAPAMIL 2 po bid VERAPAMIL 24651301950 Active Joseph Pineda Active HCL CR 120 HCL Farooq DO MG TAB CR PERMETHRIN apply PERMETHRI 97049524418 No Joseph Pineda Active 5 % CREA neck to N Longer Farooq DO toes Active tonight and then rinse off in morning. repeat at 7 days SEROQUEL one p.o. QUETIAPIN 33454693775 No Joseph W Active XR 50 MG q. E Longer Farooq DO [id number] evening FUMARATE Active TRAMADOL 1-2 TRAMADOL 74486666482 No Joseph W Active HCL 50 MG tablets HCL Longer Farooq DO TABS every 6-8 Active hours as needed for pain ALPRAZOLAM one p.o. ALPRAZOLA 78937054394 Active Joseph W Active 3 MG q.h.s. M Farooq DO [id number] ALPRAZOLAM Take 1 ALPRAZOLA 80878940464 No Joseph W Active XR tablet by M Longer Farooq DO [id number] mouth at [id number] Active bedtime DIFLUCAN 1 tablet FLUCONAZO 73150746755 No Joseph W Active 100 MG TAB by mouth MAGNO Longer Farooq DO daily Active AMBIEN 10 1 tab by ZOLPIDEM 71706803977 Active Joseph W Active MG TAB mouth at TARTRATE Farooq DO bedtime as needed for sleep DIFLUCAN 100 1 tablet DIFLUCAN 630672 FLUCONAZOLE Inactive MG TAB by mouth 100 MG TAB daily ALPRAZOLAM Take 1 ALPRAZOLAM ALPRAZOLAM Inactive XR [id number] tablet by XR [id number] mouth at [id number] bedtime TRAMADOL HCL 1-2 TRAMADOL 675263 TRAMADOL HCL Inactive 50 MG TABS tablets HCL 50 MG every 6-8 TABS hours as needed for pain SEROQUEL XR one p.o. SEROQUEL XR QUETIAPINE Inactive 50 MG q. evening 50 MG FUMARATE [id number] PERMETHRIN 5 apply neck PERMETHRIN 897063 PERMETHRIN Inactive % CREA to toes 5 % CREA tonight and then rinse off in morning. repeat at 7 days DIFLUCAN 100 1 tablet DIFLUCAN 666175 FLUCONAZOLE Inactive MG TAB by mouth 100 MG TAB daily POTASSIUM 1 capsule POTASSIUM POTASSIUM Inactive CHLORIDE CR by mouth CHLORIDE CR CHLORIDE 10 MEQ CPCR daily 10 MEQ CPCR FLUCONAZOLE one p.o. FLUCONAZOLE 19760111 FLUCONAZOLE Inactive 100 MG TABS q. day 2 100 MG TABS days TRAMADOL HCL 1 po tid TRAMADOL 031113 TRAMADOL HCL Inactive 50 MG TABS with ES HCL 50 MG Tylenol TABS NECON 1/35 1 po daily NECON 1/35 NORETHINDRONE- Inactive (28) 1-35 (28) 1-35 ETH ESTRADIOL MG-MCG TABS MG-MCG TABS CIPRO 500 MG 1 tablet CIPRO 500 502398 CIPROFLOXACIN Inactive TAB by mouth MG TAB HCL twice daily ADIPEX-P 1/2 tab po ADIPEX-P 635211 PHENTERMINE Inactive 37.5 MG CAPS q am for 37.5 MG HCL weight CAPS loss ABILIFY 2 MG 1 po q hs ABILIFY 2 567671 ARIPIPRAZOLE Inactive TABS for major MG TABS depression HYDROCHLOROT 2 tabs HYDROCHLORO 458972 HYDROCHLOROTHI Inactive HIAZIDE 25 every THIAZIDE 25 AZIDE MG TABS morning MG TABS ABILIFY 5 MG one p.o. ABILIFY 5 308789 ARIPIPRAZOLE Inactive TABS q. day MG TABS CIPROFLOXACI Take one CIPROFLOXAC 427232 CIPROFLOXACIN Inactive N HCL 500 MG (1) tablet IN HCL 500 HCL TABS by mouth MG TABS twice a day PROMETHAZINE 1 tab by PROMETHAZIN 732782 PROMETHAZINE Inactive HCL 25 MG mouth E HCL 25 MG HCL TABS every 6 TABS hours as needed PHENTERMINE 1 po q am PHENTERMINE 641907 PHENTERMINE Inactive HCL 37.5 MG for wt. HCL 37.5 MG HCL TABS loss TABS AMARYL 1 MG 1 tab AMARYL 1 MG 315457 GLIMEPIRIDE Inactive TABS twice TABS daily METFORMIN 1 tablet METFORMIN 875446 METFORMIN HCL Inactive HCL 500 MG by mouth HCL 500 MG TABS twice TABS daily SPIRONOLACTO 1 tablet SPIRONOLACT 514025 SPIRONOLACTONE Inactive NE 25 MG TAB by mouth ONE 25 MG daily TAB POTASSIUM 2 capsule POTASSIUM POTASSIUM Inactive CHLORIDE CR by mouth CHLORIDE CR CHLORIDE 10 MEQ CPCR daily 10 MEQ CPCR LISINOPRIL 1 tablet LISINOPRIL 160732 LISINOPRIL Inactive 20 MG TABS by mouth 20 MG TABS daily DIFLUCAN 100 1 tablet DIFLUCAN 441817 FLUCONAZOLE Inactive MG TABS by mouth 100 MG TABS every other day for 2 doses DIFLUCAN 100 1 tablet DIFLUCAN 687811 FLUCONAZOLE Inactive MG TAB by mouth 100 MG TAB daily x 3 days PREDNISONE 2 tablets PREDNISONE 558087 PREDNISONE Inactive 20 MG TAB today, 20 MG TAB then 1 tablet days 2-4 VYVANSE 20 1 tablet VYVANSE 20 LISDEXAMFETAMI Inactive MG ORAL CAPS daily for MG ORAL NE DIMESYLATE binge CAPS eating disorder TRAMADOL HCL 1/2 po tid TRAMADOL 044968 TRAMADOL HCL Inactive 50 MG TABS with ES HCL 50 MG Tylenol TABS prn pain AMOXICILLIN 2 po BID x AMOXICILLIN 975736 AMOXICILLIN Inactive 500 MG CAPS 10 days 500 MG CAPS PREDNISONE 2 tabs PREDNISONE 201574 PREDNISONE Inactive 20 MG TAB daily for [...] Panel - Chemistry sodium, serum 137 mmol/L 749-351 3036/08/29 potassium, serum 4.1 mmol/L 3.5-5.2 chloride, serum 100 mmol/L 98-107 carbon dioxide, venous blood 31.1 mmol/L 21.0-32.0 blood glucose 138 mg/dL 65-110 calcium, serum 9.2 mg/dL 8.5-10.1 urea nitrogen, blood 9 mg/dL 7-18 creatinine, serum 0.80 mg/dL 0.60-1.30 Lab Report: CBC, Comp. Metabolic Panel, HGBA1C - Chemistry sodium, serum 140 mmol/L 632-551 1446/04/13 potassium, serum 3.9 mmol/L 3.5-5.2 chloride, serum [...] mg/g mg/g{creat} 0-29 sodium, serum 140 mmol/L 869-566 1959/07/21 potassium, serum 3.9 mmol/L 3.5-5.2 chloride, serum [...] [phone] Encounters Code Encounter Date Provider Facility CPT-05928 Level 3 Est. Patient Joseph Trivedi [facility] 14:42:12 CDT -[facility] CPT-28950 Level 3 Est. Patient Joseph Trivedi [facility] 22:18:20 CDT -[facility] CPT-51913 Level 3 Est. Patient Joseph Trivedi [facility] 16:46:04 CDT -[facility] CPT-21245 Level 3 Est. Patient Joseph Pineda [facility] 15:39:53 CDT -[facility] CPT-89767 Level 3 Est. Patient Maite Sanchez MD [facility] 13:33:34 CDT -[facility] CPT-07491 Level 3 Est. Patient Joseph Pineda [facility] 11:37:08 CDT -[facility] CPT-77625 Level 3 Est. Patient Joseph Pineda [facility] 17:13:29 CALL TAKER -RHC CPT-27620 Level 3 Est. Patient Joseph Pineda [facility] 18:42:44 CDT CPT-21504 Level 3 Est. Patient Joseph Pineda [facility] 16:25:39 CDT CPT-24490 Level 3 Est. Patient Casey ARCHIBALD [facility] 09:52:45 CDT -RHC CPT-21049 Level 3 Est. Patient Joseph Edwin [facility] 11:03:29 CALL TAKER -RHC CPT-74517 Level 3 Est. Patient Joseph Edwin [facility] 11:03:08 CALL TAKER -RHC CPT-23858 Level 3 Est. Patient Joseph Edwin [facility] 14:33:31 CDT -[facility]HC CPT-92645 Level 3 Est. Patient Joseph Edwin [facility] 17:05:02 CALL TAKER -RHC CPT-43537 Level 3 Est. Patient Joseph Edwin [facility] 17:48:06 CALL TAKER -RHC CPT-76413 Level 3 Est. Patient [place] Edwin [facility] 14:59:22 CALL TAKER -RHC CPT-48229 Level 3 Est. Patient Joseph Edwin [facility] - 21:45:56 CALL TAKER Jose [facility] CPT-46087 Level 3 Est. Patient [facility] 21:29:50 CDT -RHC CPT-54840 Level 3 Est. Patient Joseph W [facility] 12:41:09 CDT -RH Procedures Code Procedure Name Date Entry Date Standard Description CPT-01665 Venipuncture Draw Fee 08:55:49 CALL TAKER
--- OUTSIDE RECORDS SUMMARY | 2016-11-20 13:51 | External Medical Summary | Clinical Summary ---
:1965 Author Organization [facility] [employer] Address [address] [address] Phone Allergies, Adverse Reactions, Alerts Allergy Name Reaction Description Start Date Severity Status Provider NKDA Critical Active Indigomikayla Jordanum MOTHER'S HELPER NKDA Critical No Longer Indigo Yokum MOTHER'S HELPER Active NKDA Critical Inactive Adrianna Elder Conditions [...] Resolved Indigo Other malaise 05/24 07/02 Yokum MOTHER'S HELPER and fatigue SLEEP APNEA, 327.23 Active Joseph Pineda Obstructive OBSTRUCTIVE, 06/27 06/27 Farooq DO sleep apnea MILD (adult) (pediatric) OVERWEIGHT 278.02 Inactive Joseph Pienda Overweight 06/28 06/28 Farooq DO Obesity 278.00 Active Indigo Obesity, 06/28 10/18 Yokum MOTHER'S HELPER unspecified OTH GENERAL V70.3 Resolved Maite Gutierrez Other general MEDICAL Laura ONEAL medical EXAMINATION PhD examination for ADMIN PURPOSES administrative purposes OTHER ABNORMAL 790.29 Resolved Maite C Other abnormal GLUCOSE 05/20 Laura ONEAL glucose PhD ACUTE 466.0 Resolved Maite C Acute BRONCHITIS 09/02 Laura ONEAL bronchitis PhD DEPENDENT 782.3 Resolved Indigo Edema EDEMA, LEGS, 10/29 10/18 Yokum MOTHER'S HELPER BILATERAL HYPOKALEMIA, 276.8 Resolved Indigo Hypopotassemia MILD 10/29 07/02 Youm MOTHER'S HELPER Diabetes, Type 250.00 Inactive Joseph Pineda Diabetes 2 06/27 06/27 Farooq DO mellitus without mention of complication, type II or unspecified type, not stated as uncontrolled Diabetes 250.02 Resolved Inidgo Diabetes mellitus, type 06/27 MOTHER'S HELPER mellitus II, without mention uncontrolled of complication, [...] Resolved Indigo Routine gynecological 12/14 07/02 Yo MOTHER'S HELPER gynecological examination examination Postmenopausal 627.1 Resolved Indigo Postmenopausal bleeding 12/14 MOTHER'S HELPER bleeding Screening for V76.51 Resolved Indigo Screening for malignant 12/26 07/02 Yokum MOTHER'S HELPER malignant neoplasms of neoplasms of colon colon Insomnia, 307.42 Active Indigo 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'S HELPER disorder of initiating or maintaining sleep Establish care V68.89 Resolved Indigo Encounters for or get 01/16 07/02 Yo MOTHER'S HELPER other specified acquainted administrative visit purpose Weakness, left 342.90 Resolved Indigo Hemiplegia, side of body 06/20 10/18 Yokum MOTHER'S HELPER unspecified, affecting unspecified side TIA 435.9 Active Indigo Unspecified 06/20 07/02 Yokum MOTHER'S HELPER transient cerebral ischemia Knee pain, 719.46 Active Indigo Pain in joint bilateral 06/20 10/18 Yokum MOTHER'S HELPER involving lower leg Bronchitis 490 Resolved Indigo Bronchitis, not 07/23 10/18 Yokum MOTHER'S HELPER specified as acute or chronic Diabetes 357.2 Active Maliheh Polyneuropathy mellitus, 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BROADCAST OPERATIONS DIRECTOR 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y Knee pain, 719.46 Active Indigo Pain in joint right 06/20 10/18 Yokum MOTHER'S HELPER involving lower leg Jesi 112.3 Active Indigo Candidiasis of intertrigo 10/09 10/18 Yokum MOTHER'S HELPER skin and nails Hyperlipidemia 272.4 Active Anne Other and 12/24 12/24 Neil unspecified RMA hyperlipidemia Incontinence, 788.33 Active Indigo Mixed mixed, 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 MOTHER'S HELPER incontinence urge/stress (female) (male) ABNORMAL VAGINAL ICD-626.9 Inactive Maite Sanchez BLEEDING PhD SCABIES ICD-133.0 Inactive Maite Sanchez PhD FATIGUE ICD-780.79 Inactive Indigo Yokum MOTHER'S HELPER OTH GENERAL ICD-V70.3 Inactive Maite Sanchez MEDICAL PhD EXAMINATION ADMIN PURPOSES OTHER ABNORMAL ICD-790.29 Inactive Maite Sanchez GLUCOSE PhD ACUTE BRONCHITIS ICD-466.0 Inactive Maite Sanchez PhD DEPENDENT EDEMA, ICD-782.3 Inactive Indigo Yokum LEGS, BILATERAL MOTHER'S HELPER HYPOKALEMIA, MILD ICD-276.8 Inactive Indigo Yokum MOTHER'S HELPER Diabetes mellitus, ICD-250.02 Inactive Indigo Yokum type II, MOTHER'S HELPER uncontrolled Sinusitis, ICD-461.1 Inactive Ismael Coyne frontal, acute Amandeep ONEAL Laryngitis, acute ICD-464.00 Inactive Ismael Coyne Amandeep ONEAL Routine ICD-V72.31 Inactive Indigo Yonickieum gynecological MOTHER'S HELPER examination Postmenopausal ICD-627.1 Inactive Indigo Yokum 2015 bleeding MOTHER'S HELPER Screening for ICD-V76.51 Inactive Indigo Yokum 2015 malignant MOTHER'S HELPER neoplasms of colon Establish care or ICD-V68.89 Inactive Indigo Yokum get acquainted MOTHER'S HELPER visit Weakness, left ICD-342.90 Inactive Indigo Yokum side of body MOTHER'S HELPER Bronchitis ICD-490 Inactive Indigo Yokum MOTHER'S HELPER Medication List Medication Instructions Start Stop Generic NDC Status Provider Patient Date Date Name Instruction METFORMIN 2 tablets METFORMIN 07755798557 No Indigo Active HCL 500 MG by mouth HCL Longer Yokum TB24 twice Active MOTHER'S HELPER daily AMARYL 1 MG 1 tablet GLIMEPIRID 72417968379 No Indigo Active ORAL TABS orally E Longer Yokum twice Active MOTHER'S HELPER daily NYSTATIN apply to NYSTATIN 64918219063 Active Indigo Active 068320 rash TID Yokum UNIT/GM PRN MOTHER'S HELPER CREA TROKENDI XR 2 tab TOPIRAMATE 77796671983 Active Malihe Active 100 MG ORAL daily h [id number] Ziglar i BROADCAST OPERATIONS DIRECTOR METOPROLOL 1 tab po METOPROLOL 76872257478 Active Indigo Active TARTRATE 25 bid TARTRATE Yokum MG TABS MOTHER'S HELPER AZITHROMYCI 2 po qd x AZITHROMYC 73781626476 No Jillin Active N 250 MG 1 day, IN Longer a TABS then 1 po Active Frazel qd x 4 l MOTHER'S HELPER days PREDNISONE 2 pills PREDNISONE 32409659349 No Jillin Active 20 MG TAB daily x 4 Longer a days Active Frazel l MOTHER'S HELPER PIOGLITAZON take one PIOGLITAZO 24363471461 Active Malihe Active E HCL 30 MG a day NE HCL h ORAL TABS Ziglar i BROADCAST OPERATIONS DIRECTOR JANUVIA 100 1 tablet SITAGLIPTI 36181983202 No Indigo Active MG TABS by mouth N Longer Yokum daily PHOSPHATE Active MOTHER'S HELPER ATORVASTATI 1 pill by ATORVASTAT 03696955815 Active Indigo Active N CALCIUM mouth IN CALCIUM Yokum 10 MG TABS nightly, MOTHER'S HELPER for cholester ol ASPIRIN 81 1 po qd ASPIRIN 71785401749 Active Indigo Active MG ORAL Yokum TABS MOTHER'S HELPER NITROFURANT One NITROFURAN 19332587765 No Indigo Active OIN MONOHYD capsule TOIN Longer Yokum MACRO 100 BID for MONOHYD Active MOTHER'S HELPER MG CAPS UTI MACRO TRAMADOL 1/2 po TRAMADOL 84898274815 No Jillin Active HCL 50 MG tid with HCL Longer a TABS ES Active Frazel Tylenol l MOTHER'S HELPER prn pain VYVANSE 20 1 tablet LISDEXAMFE 45052858142 No Jillin Active MG ORAL daily for TAMINE Longer a CAPS binge DIMESYLATE Active Frazel eating l MOTHER'S HELPER disorder LASIX 20 MG 2 tablet FUROSEMIDE 15920919476 Active Indigo Active TAB by mouth Yokum daily MOTHER'S HELPER CELEBREX 1 tablet CELECOXIB 15158125791 Active Indigo Active 200 MG CAPS by mouth Yokum daily MOTHER'S HELPER with meals PREDNISONE 2 tablets PREDNISONE 89620915101 No Joseph Active 20 MG TAB today, Longer W Farooq then 1 Active DO tablet days 2-4 DIFLUCAN 1 tablet FLUCONAZOL 63367600840 No Joseph Active 100 MG TAB by mouth E Longer W Farooq daily x 3 Active DO days DIFLUCAN 1 tablet FLUCONAZOL 17878335107 No Joseph Active 100 MG TABS by mouth E Longer W Farooq every Active DO other day for 2 doses ZOFRAN 4 MG 1 po q6hr ONDANSETRO 01914804110 Active Joseph Active TABS PRN N HCL W Farooq Nausea DO PREDNISONE 2 tabs PREDNISONE 22141467200 No Joseph Active 20 MG TAB daily for Longer W Farooq 3 days, 1 Active DO tab daily for 3 days, 1/2 tab daily for 2 days AMOXICILLIN 2 po BID AMOXICILLI 70026998400 No Maite C Active 500 MG CAPS x 10 days N Longer Kimberlyl Active PhD LISINOPRIL 1 tablet LISINOPRIL 21928190057 No Maite C Active 20 MG TABS by mouth Longer Madril daily Active PhD POTASSIUM 2 capsule POTASSIUM 08771573181 No Joseph Active CHLORIDE CR by mouth CHLORIDE Longer W Farooq 10 MEQ CPCR daily Active DO SPIRONOLACT 1 tablet SPIRONOLAC 91195975755 No Joseph Active ONE 25 MG by mouth TONE Longer W Farooq TAB daily Active DO METFORMIN 1 tablet METFORMIN 12042348216 No Joseph Active HCL 500 MG by mouth HCL Longer W Farooq TABS twice Active DO daily AMARYL 1 MG 1 tab GLIMEPIRID 95145906682 No Joseph Active TABS twice E Longer W Farooq daily Active DO PHENTERMINE 1 po q am PHENTERMIN 39146084879 No Joseph Active HCL 37.5 MG for wt. E HCL Longer W Farooq TABS loss Active DO PROMETHAZIN 1 tab by PROMETHAZI 23670165350 No Joseph Active E HCL 25 MG mouth NE HCL Longer W Farooq TABS every 6 Active DO hours as needed CIPROFLOXAC Take one CIPROFLOXA 38943502763 No Joseph Active IN HCL 500 (1) DELORES HCL Longer W Farooq MG TABS tablet by Active DO mouth twice a day ABILIFY 5 one p.o. ARIPIPRAZO 70124204020 No Joseph Active MG TABS q. day LE Longer W Farooq Active DO HYDROCHLORO 2 tabs HYDROCHLOR 96562411042 No Joseph Active THIAZIDE 25 every OTHIAZIDE Longer W Farooq MG TABS morning Active DO ABILIFY 2 1 po q hs ARIPIPRAZO 94211439446 No Joseph Active MG TABS for major LE Longer W Farooq depressio Active DO n ADIPEX-P 1/2 tab PHENTERMIN 94358512368 No Casey Active 37.5 MG po q am E HCL Longer [place] CAPS for Active PA weight loss CIPRO 500 1 tablet CIPROFLOXA 93808453508 No Casey Active MG TAB by mouth DELORES HCL Longer Leonarda twice Active PA daily NECON 1/35 1 po NORETHINDR 41399039465 No Casey Active (28) 1-35 daily ONE-ETH Longer [place] MG-MCG TABS ESTRADIOL Active PA TRAMADOL 1 po tid TRAMADOL 62945817291 No Casey Active HCL 50 MG with ES HCL Longer Leonarda TABS Tylenol Active PA FLUCONAZOLE one p.o. FLUCONAZOL 95240279558 No Casey Active 100 MG TABS q. day 2 E Longer [place] days Active PA POTASSIUM 1 capsule POTASSIUM 03232902757 No Casey Active CHLORIDE CR by mouth CHLORIDE Longer [place] 10 MEQ CPCR daily Active PA IMIPRAMINE Take 6 IMIPRAMINE 13686233155 Active Indigo Active HCL 50 MG tablets HCL Yokum TABS by mouth MOTHER'S HELPER at bedtime DIFLUCAN 1 tablet FLUCONAZOL 36935044167 No Joseph Active 100 MG TAB by mouth E Longer W Farooq daily Active DO VERAPAMIL 2 po bid VERAPAMIL 97606931322 Active Indigo Active HCL CR 120 HCL Yokum MG TAB CR MOTHER'S HELPER PERMETHRIN apply PERMETHRIN 85118650199 No Joseph Active 5 % CREA neck to Longer W Farooq toes Active DO tonight and then rinse off in morning. repeat at 7 days SEROQUEL XR one p.o. QUETIAPINE 57373223218 No Joseph Active 50 MG q. FUMARATE Longer W Farooq [id number] evening Active DO TRAMADOL 1-2 TRAMADOL 99986006335 No Joseph Active HCL 50 MG tablets HCL Longer W Farooq TABS every 6-8 Active DO hours as needed for pain ALPRAZOLAM one p.o. ALPRAZOLAM 85854513693 Active Indigo Active 3 MG q.h.s. Yokum [id number] MOTHER'S HELPER ALPRAZOLAM Take 1 ALPRAZOLAM 39231029497 No Joseph Active XR tablet by [id number] Longer W Farooq [id number] mouth at Active DO bedtime DIFLUCAN 1 tablet FLUCONAZOL 57397102855 No Joseph Active 100 MG TAB by mouth E Longer W Farooq daily Active DO AMBIEN 10 1 tab by ZOLPIDEM 39181044973 Active Indigo Active MG TAB mouth at TARTRATE Yokum bedtime MOTHER'S HELPER as needed for sleep DIFLUCAN 100 1 tablet DIFLUCAN 395511 FLUCONAZOLE Inactive MG TAB by mouth 100 MG TAB daily ALPRAZOLAM Take 1 ALPRAZOLAM ALPRAZOLAM Inactive XR [id number] tablet by XR [id number] mouth at [id number] bedtime TRAMADOL HCL 1-2 TRAMADOL 407527 TRAMADOL HCL Inactive 50 MG TABS tablets HCL 50 MG every 6-8 TABS hours as needed for pain SEROQUEL XR one p.o. SEROQUEL XR QUETIAPINE Inactive 50 MG q. 50 MG FUMARATE [id number] evening [id number] PERMETHRIN 5 apply PERMETHRIN 324958 PERMETHRIN Inactive % CREA neck to 5 % CREA toes tonight and then rinse off in morning. repeat at 7 days DIFLUCAN 100 1 tablet DIFLUCAN 458338 FLUCONAZOLE Inactive MG TAB by mouth 100 MG TAB daily POTASSIUM 1 capsule POTASSIUM POTASSIUM Inactive CHLORIDE CR by mouth CHLORIDE CR CHLORIDE 10 MEQ CPCR daily 10 MEQ CPCR FLUCONAZOLE one p.o. FLUCONAZOLE 19760111 FLUCONAZOLE Inactive 100 MG TABS q. day 2 100 MG TABS days TRAMADOL HCL 1 po tid TRAMADOL 545373 TRAMADOL HCL Inactive 50 MG TABS with ES HCL 50 MG Tylenol TABS NECON 1/35 1 po NECON 1/35 NORETHINDRONE- Inactive (28) 1-35 daily (28) 1-35 ETH ESTRADIOL MG-MCG TABS MG-MCG TABS CIPRO 500 MG 1 tablet CIPRO 500 765338 CIPROFLOXACIN Inactive TAB by mouth MG TAB HCL twice daily ADIPEX-P 1/2 tab ADIPEX-P 949948 PHENTERMINE Inactive 37.5 MG CAPS po q am 37.5 MG HCL for CAPS weight loss ABILIFY 2 MG 1 po q hs ABILIFY 2 920572 ARIPIPRAZOLE Inactive TABS for major MG TABS depressio n HYDROCHLOROT 2 tabs HYDROCHLORO 521902 HYDROCHLOROTHI Inactive HIAZIDE 25 every THIAZIDE 25 AZIDE MG TABS morning MG TABS ABILIFY 5 MG one p.o. ABILIFY 5 802096 ARIPIPRAZOLE Inactive TABS q. day MG TABS CIPROFLOXACI Take one CIPROFLOXAC 113421 CIPROFLOXACIN Inactive N HCL 500 MG (1) IN HCL 500 HCL TABS tablet by MG TABS mouth twice a day PROMETHAZINE 1 tab by PROMETHAZIN 885616 PROMETHAZINE Inactive HCL 25 MG mouth E HCL 25 MG HCL TABS every 6 TABS hours as needed PHENTERMINE 1 po q am PHENTERMINE 386455 PHENTERMINE Inactive HCL 37.5 MG for wt. HCL 37.5 MG HCL TABS loss TABS AMARYL 1 MG 1 tab AMARYL 1 MG 921131 GLIMEPIRIDE Inactive TABS twice TABS daily METFORMIN 1 tablet METFORMIN 079316 METFORMIN HCL Inactive HCL 500 MG by mouth HCL 500 MG TABS twice TABS daily SPIRONOLACTO 1 tablet SPIRONOLACT 676322 SPIRONOLACTONE Inactive NE 25 MG TAB by mouth ONE 25 MG daily TAB POTASSIUM 2 capsule POTASSIUM POTASSIUM Inactive CHLORIDE CR by mouth CHLORIDE CR CHLORIDE 10 MEQ CPCR daily 10 MEQ CPCR LISINOPRIL 1 tablet LISINOPRIL 560827 LISINOPRIL Inactive 20 MG TABS by mouth 20 MG TABS daily DIFLUCAN 100 1 tablet DIFLUCAN 499952 FLUCONAZOLE Inactive MG TABS by mouth 100 MG TABS every other day for 2 doses DIFLUCAN 100 1 tablet DIFLUCAN 716260 FLUCONAZOLE Inactive MG TAB by mouth 100 MG TAB daily x 3 days PREDNISONE 2 tablets PREDNISONE 994422 PREDNISONE Inactive 20 MG TAB today, 20 MG TAB then 1 tablet days 2-4 VYVANSE 20 1 tablet VYVANSE 20 LISDEXAMFETAMI Inactive MG ORAL CAPS daily for MG ORAL NE DIMESYLATE binge CAPS eating disorder TRAMADOL HCL 1/2 po TRAMADOL 926586 TRAMADOL HCL Inactive 50 MG TABS tid with HCL 50 MG ES TABS Tylenol prn pain JANUVIA 100 1 tablet JANUVIA 100 SITAGLIPTIN Inactive MG TABS by mouth MG TABS PHOSPHATE daily AMARYL 1 MG 1 tablet AMARYL 1 MG 443052 GLIMEPIRIDE Inactive ORAL TABS orally ORAL TABS twice daily METFORMIN 2 tablets METFORMIN METFORMIN HCL Inactive HCL 500 MG by mouth HCL 500 MG TB24 twice TB24 daily AMOXICILLIN 2 po BID AMOXICILLIN 643142 AMOXICILLIN Inactive 500 MG CAPS x 10 days 500 MG CAPS PREDNISONE 2 tabs PREDNISONE 711471 PREDNISONE Inactive 20 MG TAB daily for 20 MG TAB 3 days, 1 tab daily for 3 days, 1/2 tab daily for 2 days NITROFURANTO One NITROFURANT 4859859 NITROFURANTOIN Inactive IN MONOHYD capsule OIN MONOHYD MONOHYD MACRO MACRO 100 MG BID for MACRO 100 CAPS UTI MG CAPS PREDNISONE 2 pills PREDNISONE 357782 PREDNISONE Inactive 20 MG TAB daily x 4 20 MG TAB days AZITHROMYCIN 2 po qd x AZITHROMYCI 1523792 AZITHROMYCIN Inactive 250 MG TABS 1 day, [...] HGBA1C - Chemistry sodium, serum 140 mmol/L 951-062 2974/06/03 potassium, serum 3.9 mmol/L 3.5-5.2 chloride, serum [...] Panel - Chemistry sodium, serum 136 mmol/L 633-996 1474/01/04 carbon dioxide, venous blood 27.0 mmol/L 21.0-32.0 potassium, serum 4.6 mmol/L 3.5-5.2 chloride, serum 98 mmol/L 98-107 blood glucose 174 mg/dL 65-110 urea nitrogen, blood 12 mg/dL 7-18 creatinine, serum 0.78 mg/dL 0.55-1.30 alanine aminotransferase (SGPT), serum 65 U/L 12-78 aspartate aminotransferase (SGOT), serum 34 U/L 15-37 calcium, serum 8.9 mg/dL 8.5-10.1 bilirubin, serum, total 0.40 mg/dL 0.00-1.00 cholesterol, serum 219 mg/dL 701-877 9638/01/04 triglyceride, serum, fasting 214 mg/dL 30-200 HDL cholesterol, serum 39 mg/dL 32-96 LDL cholesterol, serum 137 mg/dL 0-130 Lab Report: Lipid Panel - Chemistry cholesterol, serum 157 mg/dL 113-341 0952/08/22 triglyceride, serum, fasting 215 mg/dL 30-200 HDL [...] mg/dL Encounters Code Encounter Date Provider Facility CPT-66555 Level 3 Est. Patient Indigo Sexton APRN [facility] - 13:37:46 CDT [facility] CPT-92113 Level 4 Est[facility] CPT-96952 Level 3 Est. Patient [facility] 08:58:07 CDT BROADCAST OPERATIONS DIRECTOR CPT-44923 Level 3 Est. Patient Faby Marino [facility] 14:40:56 CDT MOTHER'S HELPER CPT-18890 Level 4 Est. Patient [facility] 17:29:53 RETAIL SALES ADVISOR BROADCAST OPERATIONS DIRECTOR CPT-65301 Level 4 Est. [facility] 09:51:54 RETAIL SALES ADVISOR CPT-56575 Level 3 Est. Patient [facility] 18:59:38 CDT CPT-07249 Level 3 Est. Patient Joseph Edwin [facility] 14:42:12 CDT -R[facility] CPT-19333 Level 3 Est. Patient Joseph Edwin [facility] 22:18:20 CDT -RHC CPT-48589 Level 3 Est. Patient Joseph Pineda [facility] 16:46:04 CDT -RHC CPT-40194 Level 3 Est. Patient Joseph Pineda [facility] 15:39:53 CDT -RHC CPT-37792 Level 3 Est. Patient Maite Sanchez MD PhD [facility] 13:33:34 CDT -RHC CPT-17935 Level 3 Est. Patient Joseph Pineda [facility] 11:37:08 CDT -RHC CPT-42558 Level 3 Est. Patient Joseph Pineda [facility] 17:13:29 RETAIL SALES ADVISOR -RHC CPT-27317 Level 3 Est. Patient Joseph Pineda [facility] 18:42:44 CDT CPT-01290 Level 3 Est. Patient Joseph Pineda [facility] 16:25:39 CDT CPT-65178 Level 3 Est. Patient Casey Brower [facility] 09:52:45 CDT -RHC CPT-33358 Level 3 Est. Patient Joseph Pineda [facility] 11:03:29 RETAIL SALES ADVISOR -RHC CPT-12913 Level 3 Est. Patient [facility] 11:03:08 RETAIL SALES ADVISOR -RHC CPT-16742 Level 3 Est. Patient Runge Edwin [facility] 14:33:31 CDT -RHC CPT-25123 Level 3 Est. Patient [facility] 17:05:02 RETAIL SALES ADVISOR -RHC CPT-35306 Level 3 Est. Patient [facility] 17:48:06 RETAIL SALES ADVISOR -RHC CPT-25861 Level 3 Est. Patient [facility] 14:59:22 RETAIL SALES ADVISOR -RHC CPT-81957 Level 3 Est. Patient [facility] - 21:45:56 RETAIL SALES ADVISOR [place] [facility] CPT-53163 Level 3 Est. Patient [facility] 21:29:50 CDT -RHC CPT-67963 Level 3 Est. Patient [facility] 12:41:09 CDT -RHC Procedures Code Procedure Name Date Entry Date Standard Description CPT-79478 Venipuncture Draw Fee 09:19:08 CDT CPT-11913 Lipid - LAB USE ONLY 09:19:07 CDT CPT-JTINJ Asp/Joint Injection 09:26:49 CDT CPT-13369 Chest 2V Frontal and Lat 14:47:43 CDT CPT-JTINJ Asp/Joint Injection 09:51:53 RETAIL SALES ADVISOR CPT-OV Office Visit 17:39:05 CDT CPT-OV Office Visit 15:19:50 CDT CPT-09652 Sono transvag pelvis non OB uterus ovaries cervix 18:04:34 CDT CPT-87041 Venipuncture Draw Fee 08:55:49 RETAIL SALES ADVISOR
--- OUTSIDE RECORDS SUMMARY | 2016-11-20 13:51 | External Medical Summary | Clinical Summary ---
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 METFORMIN 2 tablet METFORMIN HCL 21223854004 Active Joseph Pineda Active HCL 500 MG daily for Farooq DO TB24 blood sugars LASIX 20 2 tablet by FUROSEMIDE 71754979096 Active Joseph Pineda Active MG TAB mouth daily Farooq DO CELEBREX 1 tablet by CELECOXIB 90477075240 Active Joseph Pineda Active 200 MG mouth daily Farooq DO CAPS with meals PREDNISONE 2 tablets 2 PREDNISONE 93993352240 No Joseph Pineda Active 20 MG TAB today, then 0 Longer Farooq DO 1 tablet 1 Active days 2-4 5 / 0 4 / 3 DIFLUCAN 1 tablet by 2 FLUCONAZOLE 12588136919 No Joseph W Active 100 MG TAB mouth daily 0 Longer Farooq DO x 3 days 1 Active 5 / 0 4 / 3 AMARYL 1 1 tablet GLIMEPIRIDE 39981659567 Active Joseph Pineda Active MG ORAL orally Farooq DO TABS twice daily DIFLUCAN 1 tablet by 2 FLUCONAZOLE 52151089814 No Joseph W Active 100 MG mouth every 0 Longer Farooq DO TABS other day 1 Active for 2 doses 5 / 0 1 / 2 3 ZOFRAN 4 1 po q6hr ONDANSETRON HCL 38865652467 Active Bam Active MG TABS PRN Nausea W Luis ONEAL PREDNISONE 2 tabs 2 PREDNISONE 25605293532 No Joseph Pineda Active 20 MG TAB daily for 3 0 Longer Farooq DO days, 1 tab 1 Active daily for 3 4 days, 1/2 / tab daily 1 for 2 days 0 / 2 5 TRAMADOL 1/2 po tid TRAMADOL HCL 64264546704 Active Joseph Pineda Active HCL 50 MG with ES Farooq DO TABS Tylenol prn pain AMOXICILLI 2 po BID x 2 AMOXICILLIN 85360002266 No Maite C Active N 500 MG 10 days 0 Longer Madril CAPS 1 Active PhD 0 / 2 0 LISINOPRIL 1 tablet by 2 LISINOPRIL 16926386370 No Maite C Active 20 MG TABS mouth 0 Longer Madril daily 1 Active PhD 0 / 1 0 POTASSIUM 2 capsule 2 POTASSIUM CHLORIDE 86246750474 No Joseph Pineda Active CHLORIDE by mouth 0 Longer Farooq DO CR 10 MEQ daily 1 Active CPCR 8 2 9 SPIRONOLAC 1 tablet by 2 SPIRONOLACTONE 57366577122 No Joseph Pineda Active TONE 25 MG mouth daily 0 Longer Farooq DO TAB 1 Active 4 / 0 8 / 2 9 METFORMIN 1 tablet 2 METFORMIN HCL 22478337971 No Joseph Pineda Active HCL 500 MG by mouth 0 Longer Farooq DO TABS twice daily 1 Active 4 / 0 8 / 2 9 AMARYL 1 1 tab twice 2 GLIMEPIRIDE 14801667939 No Joseph W Active MG TABS daily 0 Longer Farooq DO 1 Active 4 / 0 8 / 2 9 PHENTERMIN 1 po q am 2 PHENTERMINE HCL 02635579632 No Joseph W Active E HCL 37.5 for wt. 0 Longer Farooq DO MG TABS loss 1 Active 3 / 1 2 / 2 3 PROMETHAZI 1 tab by 2 PROMETHAZINE HCL 06192574606 No Joseph W Active NE HCL 25 mouth every 0 Longer Farooq DO MG TABS 6 hours as 1 Active needed 3 / 0 9 / 0 9 CIPROFLOXA Take one 2 CIPROFLOXACIN HCL 29502104907 No Joseph W Active DELORES HCL (1) tablet 0 Longer Farooq DO 500 MG by mouth 1 Active TABS twice a day 3 / 0 9 / 0 9 ABILIFY 5 one p.o. q. 2 ARIPIPRAZOLE 52821444675 No Joseph W Active MG TABS day 0 Longer Farooq DO 1 Active 3 / 0 9 / 0 9 HYDROCHLOR 2 tabs 2 HYDROCHLOROTHIAZID 87711017558 No Joseph W Active OTHIAZIDE every 0 E Longer Farooq DO 25 MG TABS morning 1 Active 3 / 0 6 / 2 7 ABILIFY 2 1 po q hs 2 ARIPIPRAZOLE 67420761192 No Joseph W Active MG TABS for major 0 Longer Farooq DO depression 1 Active 3 / 0 5 / 0 7 ADIPEX-P 1/2 tab po 2 PHENTERMINE HCL 34069969999 No Casey Active 37.5 MG q am for 0 Longer Leonarda CAPS weight loss 1 Active PA 3 / 0 5 / 0 1 CIPRO 500 1 tablet by 2 CIPROFLOXACIN HCL 32783656717 No Casey Active MG TAB mouth twice 0 Longer Cromona daily 1 Active PA 3 / 0 5 / 0 1 NECON 1/35 1 po daily 2 NORETHINDRONE-ETH 69157379928 No Casey Active (28) 1-35 0 ESTRADIOL Longer Cromona MG-MCG 1 Active PA TABS 3 / 0 5 / 0 1 TRAMADOL 1 po tid 2 TRAMADOL HCL 36663178143 No Casey Active HCL 50 MG with ES 0 Longer Cromona TABS Tylenol 1 Active PA 3 / 0 5 / 0 1 FLUCONAZOL one p.o. q. 2 FLUCONAZOLE 99743143663 No Casey Active E 100 MG day 2 days 0 Longer Leonarda TABS 1 Active PA 3 / 0 5 / 0 1 POTASSIUM 1 capsule 2 POTASSIUM CHLORIDE 69050080347 No Casey Active CHLORIDE by mouth 0 Longer Cromona CR 10 MEQ daily 1 Active PA CPCR 3 / 0 5 / 0 1 IMIPRAMINE Take 6 IMIPRAMINE HCL 42116475314 Active Bam Active HCL 50 MG tablets by W TABS mouth at [place] bedtime DIFLUCAN 1 tablet by 2 FLUCONAZOLE 86842106964 No Joseph W Active 100 MG TAB mouth daily 0 Longer Farooq DO 1 Active 2 / 0 2 / 2 4 METOPROLOL 1/2 tab po METOPROLOL 29504653968 Active Joseph W Active TARTRATE bid TARTRATE Farooq DO 25 MG TABS VERAPAMIL 2 po bid VERAPAMIL HCL 80502169916 Active Joseph W Active HCL CR 120 Farooq DO MG TAB CR PERMETHRIN apply neck 2 PERMETHRIN 87474060636 No Joseph W Active 5 % CREA to toes 0 Longer Farooq DO tonight and 1 Active then rinse 2 off in / morning. 0 repeat at 7 1 days / 2 0 SEROQUEL one p.o. q. 2 QUETIAPINE 85493083492 No Joseph W Active XR 50 MG evening 0 FUMARATE Longer Farooq DO [id number] 1 Active 2 / 0 1 / 2 0 TRAMADOL 1-2 tablets 2 TRAMADOL HCL 01519245006 No Joseph W Active HCL 50 MG every 6-8 0 Longer Farooq DO TABS hours as 1 Active needed for 2 pain / 0 1 / 2 0 ALPRAZOLAM one p.o. ALPRAZOLAM 97354144146 Active Joseph W Active 3 MG q.h.s. Farooq DO [id number] ALPRAZOLAM Take 1 2 ALPRAZOLAM 34085180704 No Joseph W Active XR tablet by 0 [id number] Longer Farooq DO [id number] mouth at 1 Active bedtime 1 / 2 9 DIFLUCAN 1 tablet by 2 FLUCONAZOLE 92805526851 No Joseph W Active 100 MG TAB mouth daily 0 Longer Farooq DO 1 Active 0 / 0 6 AMBIEN 10 1 tab by ZOLPIDEM TARTRATE 02318569248 Active Joseph W Active MG TAB mouth at Farooq DO bedtime as needed for sleep DIFLUCAN 100 1 tablet DIFLUCAN 19760111 FLUCONAZOLE Inactive MG TAB by mouth 100 MG TAB daily ALPRAZOLAM Take 1 ALPRAZOLAM ALPRAZOLAM Inactive XR [id number] tablet by XR [id number] mouth at [id number] bedtime TRAMADOL HCL 1-2 TRAMADOL 800074 TRAMADOL HCL Inactive 50 MG TABS tablets HCL 50 MG every 6-8 TABS hours as needed for pain SEROQUEL XR one p.o. SEROQUEL XR QUETIAPINE Inactive 50 MG q. evening 50 MG FUMARATE [id number] PERMETHRIN 5 apply neck PERMETHRIN 647388 PERMETHRIN Inactive % CREA to toes 5 % CREA tonight and then rinse off in morning. repeat at 7 days DIFLUCAN 100 1 tablet DIFLUCAN 914092 FLUCONAZOLE Inactive MG TAB by mouth 100 MG TAB daily POTASSIUM 1 capsule POTASSIUM POTASSIUM Inactive CHLORIDE CR by mouth CHLORIDE CR CHLORIDE 10 MEQ CPCR daily 10 MEQ CPCR FLUCONAZOLE one p.o. FLUCONAZOLE 19760111 FLUCONAZOLE Inactive 100 MG TABS q. day 2 100 MG TABS days TRAMADOL HCL 1 po tid TRAMADOL 892144 TRAMADOL HCL Inactive 50 MG TABS with ES HCL 50 MG Tylenol TABS NECON 1/35 1 po daily NECON /35 NORETHINDRONE- Inactive (28) 1-35 (28) 1-35 ETH ESTRADIOL MG-MCG TABS MG-MCG TABS CIPRO 500 MG 1 tablet CIPRO 500 592614 CIPROFLOXACIN Inactive TAB by mouth MG TAB HCL twice daily ADIPEX-P 1/2 tab po ADIPEX-P 013847 PHENTERMINE Inactive 37.5 MG CAPS q am for 37.5 MG HCL weight CAPS loss ABILIFY 2 MG 1 po q hs ABILIFY 2 899653 ARIPIPRAZOLE Inactive TABS for major MG TABS depression HYDROCHLOROT 2 tabs HYDROCHLORO 897389 HYDROCHLOROTHI Inactive HIAZIDE 25 every THIAZIDE 25 AZIDE MG TABS morning MG TABS ABILIFY 5 MG one p.o. ABILIFY 5 670151 ARIPIPRAZOLE Inactive TABS q. day MG TABS CIPROFLOXACI Take one CIPROFLOXAC 013993 CIPROFLOXACIN Inactive N HCL 500 MG (1) tablet IN HCL 500 HCL TABS by mouth MG TABS twice a day PROMETHAZINE 1 tab by PROMETHAZIN 405681 PROMETHAZINE Inactive HCL 25 MG mouth E HCL 25 MG HCL TABS every 6 TABS hours as needed PHENTERMINE 1 po q am PHENTERMINE 286601 PHENTERMINE Inactive HCL 37.5 MG for wt. HCL 37.5 MG HCL TABS loss TABS AMARYL 1 MG 1 tab AMARYL 1 MG 503678 GLIMEPIRIDE Inactive TABS twice TABS daily METFORMIN 1 tablet METFORMIN 333635 METFORMIN HCL Inactive HCL 500 MG by mouth HCL 500 MG TABS twice TABS daily SPIRONOLACTO 1 tablet SPIRONOLACT 626872 SPIRONOLACTONE Inactive NE 25 MG TAB by mouth ONE 25 MG daily TAB POTASSIUM 2 capsule POTASSIUM POTASSIUM Inactive CHLORIDE CR by mouth CHLORIDE CR CHLORIDE 10 MEQ CPCR daily 10 MEQ CPCR LISINOPRIL 1 tablet LISINOPRIL 022594 LISINOPRIL Inactive 20 MG TABS by mouth 20 MG TABS daily DIFLUCAN 100 1 tablet DIFLUCAN 784030 FLUCONAZOLE Inactive MG TABS by mouth 100 MG TABS every other day for 2 doses DIFLUCAN 100 1 tablet DIFLUCAN 380773 FLUCONAZOLE Inactive MG TAB by mouth 100 MG TAB daily x 3 days PREDNISONE 2 tablets PREDNISONE 347531 PREDNISONE Inactive 20 MG TAB today, 20 MG TAB then 1 tablet days 2-4 AMOXICILLIN 2 po BID x AMOXICILLIN 436787 AMOXICILLIN Inactive 500 MG CAPS 10 days 500 MG CAPS PREDNISONE 2 tabs PREDNISONE 904960 PREDNISONE Inactive 20 MG TAB daily for [...] Panel - Chemistry sodium, serum 137 mmol/L 563-990 3213/08/29 potassium, serum 4.1 mmol/L 3.5-5.2 chloride, serum 100 mmol/L 98-107 carbon dioxide, venous blood 31.1 mmol/L 21.0-32.0 blood glucose 138 mg/dL 65-110 calcium, serum 9.2 mg/dL 8.5-10.1 urea nitrogen, blood 9 mg/dL 7-18 creatinine, serum 0.80 mg/dL 0.60-1.30 Lab Report: CBC, Comp. Metabolic Panel, HGBA1C - Chemistry sodium, serum 140 mmol/L 802-972 2337/04/13 potassium, serum 3.9 mmol/L 3.5-5.2 chloride, serum [...] 4.3-6.0 Encounters Code Encounter Date Provider Facility CPT-72343 Level 3 Est. Patient Joseph Trivedi [facility] 22:18:20 CDT -[facility] CPT-62155 Level 3 Est. Patient Joseph Trivedi [facility] 16:46:04 CDT -[facility] CPT-74706 Level 3 Est. Patient Joseph Trivedi [facility] 15:39:53 CDT -[facility] CPT-65115 Level 3 Est. Patient Maite Sanchez MD [facility] 13:33:34 CDT -[facility] CPT-42766 Level 3 Est. Patient Joseph Trivedi [facility] 11:37:08 CDT -[facility] CPT-24400 Level 3 Est. Patient Joseph Trivedi [facility] 17:13:29 RN DIALYSIS -[facility] CPT-20435 Level 3 Est. Patient Joseph Trivedi [facility] 18:42:44 CDT CPT-51537 Level 3 Est. Patient Joseph Pineda [facility] 16:25:39 CDT CPT-80791 Level 3 Est. Patient Casey Brower [facility] 09:52:45 CDT -[facility] CPT-40995 Level 3 Est. Patient Joseph Pineda [facility] 11:03:29 RN DIALYSIS -[facility] CPT-05575 Level 3 Est. Patient Joseph Pineda [facility] 11:03:08 RN DIALYSIS -[facility] CPT-63902 Level 3 Est. Patient Joseph Pineda [facility] 14:33:31 CDT -[facility] CPT-85926 Level 3 Est. Patient Joseph Pinead [facility] 17:05:02 RN DIALYSIS -[facility] CPT-23621 Level 3 Est. Patient Joseph Pineda [facility] 17:48:06 RN DIALYSIS -[facility] CPT-13319 Level 3 Est. Patient Joseph Pineda [facility] 14:59:22 RN DIALYSIS -[facility] CPT-48121 Level 3 Est. Patient Joseph Pineda [facility] - 21:45:56 RN DIALYSIS [facility] CPT-82557 Level 3 Est. Patient Joseph Pineda [facility] 21:29:50 CDT -[facility] CPT-43847 Level 3 Est. Patient Joseph Pineda [facility] 12:41:09 CDT -[facility] Procedures Code Procedure Name Date Entry Date Standard Description CPT-80422 Venipuncture Draw Fee 08:55:49 RN DIALYSIS
--- OUTSIDE RECORDS SUMMARY | 2016-11-20 13:52 | External Medical Summary | Clinical Summary ---
:1965 Author Organization [facility] Address [address] [address] Phone Allergies, Adverse Reactions, Alerts Allergy Name Reaction Description Start Date Severity Status Provider NKDA Critical Active Indigo Yonickieum ORNAMENTER NKDA Critical No Longer Indigo Yokum ORNAMENTER Active NKDA Critical Inactive Adrianna Elder Conditions [...] Resolved Indigo Other malaise 05/24 07/02 Yokum ORNAMENTER and fatigue SLEEP APNEA, 327.23 Active Joseph Pineda Obstructive OBSTRUCTIVE, 06/27 06/27 Farooq DO sleep apnea MILD (adult) (pediatric) OVERWEIGHT 278.02 Inactive Joseph Pineda Overweight 06/28 06/28 Farooq DO Obesity 278.00 Active Indigo Obesity, 06/28 10/18 Yokum ORNAMENTER unspecified OTH GENERAL V70.3 Resolved Maite Gutierrez Other general MEDICAL Laura ONEAL medical EXAMINATION PhD examination for ADMIN PURPOSES administrative purposes OTHER ABNORMAL 790.29 Resolved Maite C Other abnormal GLUCOSE 05/20 Laura ONEAL glucose PhD ACUTE 466.0 Resolved Maite C Acute BRONCHITIS 09/02 Laura ONEAL bronchitis PhD DEPENDENT 782.3 Resolved Indigo Edema EDEMA, LEGS, 10/29 10/18 Yokum ORNAMENTER BILATERAL HYPOKALEMIA, 276.8 Resolved Indigo Hypopotassemia MILD 10/29 07/02 Youm ORNAMENTER Diabetes, Type 250.00 Inactive Joseph Pineda Diabetes 2 06/27 06/27 Farooq DO mellitus without mention of complication, type II or unspecified type, not stated as uncontrolled Diabetes 250.02 Resolved Indigo Diabetes mellitus, type 06/27 ORNAMENTER mellitus II, without mention uncontrolled of complication, [...] Resolved Indigo Routine gynecological 12/14 07/02 Yo ORNAMENTER gynecological examination examination Postmenopausal 627.1 Resolved Indigo Postmenopausal bleeding 12/14 ORNAMENTER bleeding Screening for V76.51 Resolved Indigo Screening for malignant 12/26 07/02 Yokum ORNAMENTER malignant neoplasms of neoplasms of colon colon Insomnia, 307.42 Active Indigo 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 ORNAMENTER disorder of initiating or maintaining sleep Establish care V68.89 Resolved Indigo Encounters for or get 01/16 07/02 Yo ORNAMENTER other specified acquainted administrative visit purpose Weakness, left 342.90 Resolved Indigo Hemiplegia, side of body 06/20 10/18 Yokum ORNAMENTER unspecified, affecting unspecified side TIA 435.9 Active Indigo Unspecified 06/20 07/02 Yokum ORNAMENTER transient cerebral ischemia Knee pain, 719.46 Active Indigo Pain in joint bilateral 06/20 10/18 Yokum ORNAMENTER involving lower leg Bronchitis 490 Resolved Indigo Bronchitis, not 07/23 10/18 Yokum ORNAMENTER specified as acute or chronic Diabetes 357.2 Active Maliheh Polyneuropathy mellitus, 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SEWER PIPE PRESS 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y Knee pain, 719.46 Active Indigo Pain in joint right 06/20 10/18 Yokum ORNAMENTER involving lower leg Jesi 112.3 Active Indigo Candidiasis of intertrigo 10/09 10/18 Yokum ORNAMENTER skin and nails Hyperlipidemia 272.4 Active Anne Other and 12/24 12/24 Neil unspecified RMA hyperlipidemia Incontinence, 788.33 Active Indigo Mixed mixed, 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 ORNAMENTER incontinence urge/stress (female) (male) Female stress 625.6 Active Yury AnthonyCarlos Enrique Stress incontinence 01/03 01/03 Cy patel MD female SCABIES ICD-133.0 Inactive Maite Sanchez PhD ABNORMAL VAGINAL ICD-626.9 Inactive Maite Sanchez BLEEDING PhD OTH GENERAL ICD-V70.3 Inactive Maite Sanchez MEDICAL MD PhD EXAMINATION ADMIN PURPOSES OTHER ABNORMAL ICD-790.29 Inactive Maite Sanchez GLUCOSE PhD ACUTE BRONCHITIS ICD-466.0 Inactive Maite Sanchez PhD DEPENDENT EDEMA, ICD-782.3 Inactive Indigo Yokum LEGS, BILATERAL ORNAMENTER Diabetes mellitus, ICD-250.02 Inactive Indigo Yokum type II, ORNAMENTER uncontrolled FATIGUE ICD-780.79 Inactive Indigo Yokum ORNAMENTER HYPOKALEMIA, MILD ICD-276.8 Inactive Indigo Yokum ORNAMENTER Routine ICD-V72.31 Inactive Indigo Yokum gynecological ORNAMENTER examination Postmenopausal ICD-627.1 Inactive Indigo Yokum 2015 bleeding ORNAMENTER Screening for ICD-V76.51 Inactive Indigo Yokum 2015 malignant ORNAMENTER neoplasms of colon Establish care or ICD-V68.89 Inactive Indigo Yokum get acquainted ORNAMENTER visit Weakness, left ICD-342.90 Inactive Indigo Yokum side of body ORNAMENTER Bronchitis ICD-490 Inactive Indigo Yokum ORNAMENTER Sinusitis, ICD-461.1 Inactive Ismael Coyne frontal, acute Amandeep ONEAL Laryngitis, acute ICD-464.00 Inactive Ismael Coyne Amandeep ONEAL Medication List Medication Instructions Start Stop Generic NDC Status Provider Patient Date Date Name Instruction METFORMIN 2 tablets METFORMIN [id number] No Indigo Active HCL 500 MG by mouth HCL Longer Yokum TB24 twice Active ORNAMENTER daily AMARYL 1 MG 1 tablet GLIMEPIRID 05387536232 No Indigo Active ORAL TABS orally E Longer Yokum twice Active ORNAMENTER daily NYSTATIN apply to NYSTATIN 35555325052 Active Indigo Active 465620 rash TID Yokum UNIT/GM PRN ORNAMENTER CREA TROKENDI XR 2 tab TOPIRAMATE 70961701908 Active Malihe Active 100 MG ORAL daily h [id number] Ziglar i SEWER PIPE PRESS OPERATOR METOPROLOL 1 tab po METOPROLOL 33775845253 Active Indigo Active TARTRATE 25 bid TARTRATE Yokum MG TABS ORNAMENTER AZITHROMYCI 2 po qd x AZITHROMYC 22006812374 No Jillin Active N 250 MG 1 day, IN Longer a TABS then 1 po Active Frazel qd x 4 l ORNAMENTER days PREDNISONE 2 pills PREDNISONE 03736025095 No Jillin Active 20 MG TAB daily x 4 Longer a days Active Frazel l ORNAMENTER PIOGLITAZON take one PIOGLITAZO 22508086874 Active Malihe Active E HCL 30 MG a day NE HCL h ORAL TABS Ziglar i SEWER PIPE PRESS OPERATOR JANUVIA 100 1 tablet SITAGLIPTI 36316639172 No Indigo Active MG TABS by mouth N Longer Yokum daily PHOSPHATE Active ORNAMENTER ATORVASTATI 1 pill by ATORVASTAT 94003793285 Active Indigo Active N CALCIUM mouth IN CALCIUM Yokum 10 MG TABS nightly, ORNAMENTER for cholester ol ASPIRIN 81 1 po qd ASPIRIN 42574340317 Active Indigo Active MG ORAL Yokum TABS ORNAMENTER NITROFURANT One NITROFURAN 77251891718 No Indigo Active OIN MONOHYD capsule TOIN Longer Yokum MACRO 100 BID for MONOHYD Active ORNAMENTER MG CAPS UTI MACRO TRAMADOL 1/2 po TRAMADOL 31718009245 No Jillin Active HCL 50 MG tid with HCL Longer a TABS ES Active Frazel Tylenol l ORNAMENTER prn pain VYVANSE 20 1 tablet LISDEXAMFE 03332773917 No Jillin Active MG ORAL daily for TAMINE Longer a CAPS binge DIMESYLATE Active Frazel eating l ORNAMENTER disorder LASIX 20 MG 2 tablet FUROSEMIDE 77517533855 Active Indigo Active TAB by mouth Yokum daily ORNAMENTER CELEBREX 1 tablet CELECOXIB 60582823553 Active Indigo Active 200 MG CAPS by mouth Yokum daily ORNAMENTER with meals PREDNISONE 2 tablets PREDNISONE 04651723183 No Joseph Active 20 MG TAB today, Longer W Farooq then 1 Active DO tablet days 2-4 DIFLUCAN 1 tablet FLUCONAZOL 83232452917 No Joseph Active 100 MG TAB by mouth E Longer W Farooq daily x 3 Active DO days DIFLUCAN 1 tablet FLUCONAZOL 21019535505 No Joseph Active 100 MG TABS by mouth E Longer W Farooq every Active DO other day for 2 doses ZOFRAN 4 MG 1 po q6hr ONDANSETRO 95329266200 Active Joseph Active TABS PRN N HCL W Farooq Nausea DO PREDNISONE 2 tabs PREDNISONE 73621197899 No Joseph Active 20 MG TAB daily for Longer W Farooq 3 days, 1 Active DO tab daily for 3 days, 1/2 tab daily for 2 days AMOXICILLIN 2 po BID AMOXICILLI 32883001423 No Maite C Active 500 MG CAPS x 10 days N Longer Madril Active PhD LISINOPRIL 1 tablet LISINOPRIL 79998651819 No Maite C Active 20 MG TABS by mouth Longer Madril daily Active PhD POTASSIUM 2 capsule POTASSIUM 51311511682 No Joseph Active CHLORIDE CR by mouth CHLORIDE Longer W Farooq 10 MEQ CPCR daily Active DO SPIRONOLACT 1 tablet SPIRONOLAC 88196290698 No Joseph Active ONE 25 MG by mouth TONE Longer W Farooq TAB daily Active DO METFORMIN 1 tablet METFORMIN 91767131486 No Joseph Active HCL 500 MG by mouth HCL Longer W Farooq TABS twice Active DO daily AMARYL 1 MG 1 tab GLIMEPIRID 03749738834 No Joseph Active TABS twice E Longer W Farooq daily Active DO PHENTERMINE 1 po q am PHENTERMIN 96345582778 No Joseph Active HCL 37.5 MG for wt. E HCL Longer W Farooq TABS loss Active DO PROMETHAZIN 1 tab by PROMETHAZI 99353018631 No Joseph Active E HCL 25 MG mouth NE HCL Longer W Farooq TABS every 6 Active DO hours as needed CIPROFLOXAC Take one CIPROFLOXA 43882109632 No Joseph Active IN HCL 500 (1) DELORES HCL Longer W Farooq MG TABS tablet by Active DO mouth twice a day ABILIFY 5 one p.o. ARIPIPRAZO 59810427217 No Joseph Active MG TABS q. day LE Longer W Farooq Active DO HYDROCHLORO 2 tabs HYDROCHLOR 03448995696 No Joseph Active THIAZIDE 25 every OTHIAZIDE Longer W Farooq MG TABS morning Active DO ABILIFY 2 1 po q hs ARIPIPRAZO 18244231442 No Joseph Active MG TABS for major LE Longer W Farooq depressio Active DO n ADIPEX-P 1/2 tab PHENTERMIN 42171751324 No Casey Active 37.5 MG po q am E HCL Longer Leonarda CAPS for Active PA weight loss CIPRO 500 1 tablet CIPROFLOXA 25687095313 No Casey Active MG TAB by mouth DELORES HCL Longer Leonarda twice Active PA daily NECON 1/35 1 po NORETHINDR 71422853227 No Casey Active (28) 1-35 daily ONE-ETH Longer Leonarda MG-MCG TABS ESTRADIOL Active PA TRAMADOL 1 po tid TRAMADOL 61751926474 No Casey Active HCL 50 MG with ES HCL Longer Leonarda TABS Tylenol Active PA FLUCONAZOLE one p.o. FLUCONAZOL 92665331270 No Casey Active 100 MG TABS q. day 2 E Longer Leonarda days Active PA POTASSIUM 1 capsule POTASSIUM 80070977008 No Casey Active CHLORIDE CR by mouth CHLORIDE Longer 10 MEQ CPCR daily Active PA IMIPRAMINE Take 6 IMIPRAMINE 51178047159 Active Indigo Active HCL 50 MG tablets HCL Yokum TABS by mouth ORNAMENTER at bedtime DIFLUCAN 1 tablet FLUCONAZOL 67653898378 No Joseph Active 100 MG TAB by mouth E Longer W Farooq daily Active DO VERAPAMIL 2 po bid VERAPAMIL 81813212875 Active Indigo Active HCL CR 120 HCL Yokum MG TAB CR ORNAMENTER PERMETHRIN apply PERMETHRIN 64065748274 No Joseph Active 5 % CREA neck to Longer W Farooq toes Active DO tonight and then rinse off in morning. repeat at 7 days SEROQUEL XR one p.o. QUETIAPINE 17422251747 No Joseph Active 50 MG q. FUMARATE Longer W Farooq [id number] evening Active DO TRAMADOL 1-2 TRAMADOL 17594523893 No Joseph Active HCL 50 MG tablets HCL Longer W Farooq TABS every 6-8 Active DO hours as needed for pain ALPRAZOLAM one p.o. ALPRAZOLAM 64798087860 Active Indigo Active 3 MG q.h.s. Yokum [id number] ORNAMENTER ALPRAZOLAM Take 1 ALPRAZOLAM 11433329240 No Joseph Active XR tablet by [id number] Longer W Farooq [id number] mouth at Active DO bedtime DIFLUCAN 1 tablet FLUCONAZOL 33321356851 No Joseph Active 100 MG TAB by mouth E Longer W Farooq daily Active DO AMBIEN 10 1 tab by ZOLPIDEM 98210189046 Active Indigo Active MG TAB mouth at TARTRATE Yokum bedtime ORNAMENTER as needed for sleep DIFLUCAN 100 1 tablet DIFLUCAN 388985 FLUCONAZOLE Inactive MG TAB by mouth 100 MG TAB daily ALPRAZOLAM Take 1 ALPRAZOLAM ALPRAZOLAM Inactive XR [id number] tablet by XR [id number] mouth at [id number] bedtime TRAMADOL HCL 1-2 TRAMADOL 429746 TRAMADOL HCL Inactive 50 MG TABS tablets HCL 50 MG every 6-8 TABS hours as needed for pain SEROQUEL XR one p.o. SEROQUEL XR QUETIAPINE Inactive 50 MG q. 50 MG FUMARATE [id number] evening [id number] PERMETHRIN 5 apply PERMETHRIN 330078 PERMETHRIN Inactive % CREA neck to 5 % CREA toes tonight and then rinse off in morning. repeat at 7 days DIFLUCAN 100 1 tablet DIFLUCAN 212201 FLUCONAZOLE Inactive MG TAB by mouth 100 MG TAB daily POTASSIUM 1 capsule POTASSIUM POTASSIUM Inactive CHLORIDE CR by mouth CHLORIDE CR CHLORIDE 10 MEQ CPCR daily 10 MEQ CPCR FLUCONAZOLE one p.o. FLUCONAZOLE 726733 FLUCONAZOLE Inactive 100 MG TABS q. day 2 100 MG TABS days TRAMADOL HCL 1 po tid TRAMADOL 297113 TRAMADOL HCL Inactive 50 MG TABS with ES HCL 50 MG Tylenol TABS NECON 1/35 1 po NECON 1/35 NORETHINDRONE- Inactive (28) 1-35 daily (28) 1-35 ETH ESTRADIOL MG-MCG TABS MG-MCG TABS CIPRO 500 MG 1 tablet CIPRO 500 566849 CIPROFLOXACIN Inactive TAB by mouth MG TAB HCL twice daily ADIPEX-P 1/2 tab ADIPEX-P 306769 PHENTERMINE Inactive 37.5 MG CAPS po q am 37.5 MG HCL for CAPS weight loss ABILIFY 2 MG 1 po q hs ABILIFY 2 650930 ARIPIPRAZOLE Inactive TABS for major MG TABS depressio n HYDROCHLOROT 2 tabs HYDROCHLORO 269211 HYDROCHLOROTHI Inactive HIAZIDE 25 every THIAZIDE 25 AZIDE MG TABS morning MG TABS ABILIFY 5 MG one p.o. ABILIFY 5 114747 ARIPIPRAZOLE Inactive TABS q. day MG TABS CIPROFLOXACI Take one CIPROFLOXAC 119052 CIPROFLOXACIN Inactive N HCL 500 MG (1) IN HCL 500 HCL TABS tablet by MG TABS mouth twice a day PROMETHAZINE 1 tab by PROMETHAZIN 699120 PROMETHAZINE Inactive HCL 25 MG mouth E HCL 25 MG HCL TABS every 6 TABS hours as needed PHENTERMINE 1 po q am PHENTERMINE 564962 PHENTERMINE Inactive HCL 37.5 MG for wt. HCL 37.5 MG HCL TABS loss TABS AMARYL 1 MG 1 tab AMARYL 1 MG 587257 GLIMEPIRIDE Inactive TABS twice TABS daily METFORMIN 1 tablet METFORMIN 537731 METFORMIN HCL Inactive HCL 500 MG by mouth HCL 500 MG TABS twice TABS daily SPIRONOLACTO 1 tablet SPIRONOLACT 907388 SPIRONOLACTONE Inactive NE 25 MG TAB by mouth ONE 25 MG daily TAB POTASSIUM 2 capsule POTASSIUM POTASSIUM Inactive CHLORIDE CR by mouth CHLORIDE CR CHLORIDE 10 MEQ CPCR daily 10 MEQ CPCR LISINOPRIL 1 tablet LISINOPRIL 055003 LISINOPRIL Inactive 20 MG TABS by mouth 20 MG TABS daily DIFLUCAN 100 1 tablet DIFLUCAN 19760111 FLUCONAZOLE Inactive MG TABS by mouth 100 MG TABS every other day for 2 doses DIFLUCAN 100 1 tablet DIFLUCAN 895130 FLUCONAZOLE Inactive MG TAB by mouth 100 MG TAB daily x 3 days PREDNISONE 2 tablets PREDNISONE 484888 PREDNISONE Inactive 20 MG TAB today, 20 MG TAB then 1 tablet days 2-4 VYVANSE 20 1 tablet VYVANSE 20 LISDEXAMFETAMI Inactive MG ORAL CAPS daily for MG ORAL NE DIMESYLATE binge CAPS eating disorder TRAMADOL HCL 1/2 po TRAMADOL 953359 TRAMADOL HCL Inactive 50 MG TABS tid with HCL 50 MG ES TABS Tylenol prn pain JANUVIA 100 1 tablet JANUVIA 100 SITAGLIPTIN Inactive MG TABS by mouth MG TABS PHOSPHATE daily AMARYL 1 MG 1 tablet AMARYL 1 MG 701622 GLIMEPIRIDE Inactive ORAL TABS orally ORAL TABS twice daily METFORMIN 2 tablets METFORMIN METFORMIN HCL Inactive HCL 500 MG by mouth HCL 500 MG TB24 twice TB24 daily AMOXICILLIN 2 po BID AMOXICILLIN 932437 AMOXICILLIN Inactive 500 MG CAPS x 10 days 500 MG CAPS PREDNISONE 2 tabs PREDNISONE 137837 PREDNISONE Inactive 20 MG TAB daily for 20 MG TAB 3 days, 1 tab daily for 3 days, 1/2 tab daily for 2 days NITROFURANTO One NITROFURANT 7948367 NITROFURANTOIN Inactive IN MONOHYD capsule OIN MONOHYD MONOHYD MACRO MACRO 100 MG BID for MACRO 100 CAPS UTI MG CAPS PREDNISONE 2 pills PREDNISONE 866899 PREDNISONE Inactive 20 MG TAB daily x 4 20 MG TAB days AZITHROMYCIN 2 po qd x AZITHROMYCI 5801400 AZITHROMYCIN Inactive 250 MG TABS 1 day, [...] Report: Basic Metabolic Panel, HGBA1C - Chemistry calcium, serum 8.9 mg/dL 8.5-10.1 urea nitrogen, blood 14 mg/dL 7-18 creatinine, serum 0.88 mg/dL 0.55-1.30 hemoglobin A1C, blood, as % of total hemoglobin 5.7 % 4.3-6.0 sodium, serum 140 mmol/L 505-063 0255/06/03 potassium, serum 3.9 mmol/L 3.5-5.2 chloride, serum 105 mmol/L 98-107 carbon dioxide, venous blood 29.4 mmol/L 21.0-32.0 blood glucose 124 mg/dL 65-110 Lab Report: CBC W/DIFF, B-Type Natriuretic Peptide [...] 4.3-6.0 Lab Report: CBC, HGBA1C - Hematology mean corpuscular hemoglobin, RBC 31.1 pg 27.0-31.2 mean corpuscular hemoglobin 34.1 G/DL % 31.8-35.4 concentration, RBC red blood cell distribution width 14.2 % 11.6-14.8 platelet count 198 10^3/MM^3 10*3/mm3 344-115 6620/01/04 mean corpuscular volume, RBC 91 fL 80-97 hematocrit, blood 39.7 % 36.0-46.0 hemoglobin, blood 13.6 g/dL 12.0-16.0 erythrocyte (RBC) count 4.36 10^6/MM^3 10*6/mm3 4.04-5.48 leukocyte count, blood 6.0 10^3/MM^3 10*3/mm3 4.6-10.2 Lab Report: Comp. Metabolic Panel, Lipid Panel - Chemistry sodium, serum 136 mmol/L 318-021 1396/01/04 carbon dioxide, venous blood 27.0 mmol/L 21.0-32.0 potassium, serum 4.6 mmol/L 3.5-5.2 chloride, serum 98 mmol/L 98-107 blood glucose 174 mg/dL 65-110 urea nitrogen, blood 12 mg/dL 7-18 creatinine, serum 0.78 mg/dL 0.55-1.30 alanine aminotransferase (SGPT), serum 65 U/L 12-78 aspartate aminotransferase (SGOT), serum 34 U/L 15-37 calcium, serum 8.9 mg/dL 8.5-10.1 bilirubin, serum, total 0.40 mg/dL 0.00-1.00 cholesterol, serum 219 mg/dL 189-926 4938/01/04 triglyceride, serum, fasting 214 mg/dL 30-200 HDL cholesterol, serum 39 mg/dL 32-96 LDL cholesterol, serum 137 mg/dL 0-130 Lab Report: Lipid Panel - Chemistry triglyceride, serum, fasting 215 mg/dL 30-200 HDL cholesterol, serum 43 mg/dL 32-96 LDL cholesterol, serum 71 mg/dL 0-130 cholesterol, serum 157 mg/dL 130-200 Office Visit: Diabetes Visit - Chemistry cholesterol, target level 200 mg/dL triglyceride, target level 200 mg/dL HDL cholesterol, serum, target level 35 mg/dL LDL target level 100 mg/dL home glucose monitor utilized Yes cholesterol, target level 200 mg/dL triglyceride, target level 200 mg/dL HDL cholesterol, serum, target level 35 mg/dL LDL target level 100 mg/dL Encounters Code Encounter Date Provider Facility CPT-93649 Level 4 [facility] Patient [facility] 15:17:12 CDT CPT-88539 Level 3 Est. [facility] 13:[facility]46 [facility] [place] CPT-05333 Level 4 Est. Patient [facility] - 10:01:06 CDT [place] CPT-37504 Level 3 Est. 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 Patient [facility] 14:40:56 CDT ORNAMENTER CPT-90495 Level 4 Est. Patient [facility] [place] 17:29:53 M[facility] ASSOC SEWER PIPE PRESS OPERATOR CPT-84122 Level 4 Est. Patient Indigo Sexton [facility] 09:51:54 MFG ASSOC CPT-63861 Level 3 Est. Patient Indigo Sexton [facility] 18:59:38 CDT CPT-57512 Level 3 Est. Patient Joseph Pineda [facility] 14:42:12 CDT -[facility] CPT-41872 Level 3 Est. Patient Joseph Pineda [facility] 22:18:20 CDT -RHC CPT-95513 Level 3 Est. Patient Joseph Pineda [facility] 16:46:04 CDT -RHC CPT-84235 Level 3 Est. Patient Joseph Pineda [facility] 15:39:53 CDT -[facility]HC CPT-88702 Level 3 Est. Patient Maite Sanchez MD [facility] 13:33:34 CDT -RHC CPT-07926 Level 3 Est. Patient Joseph Pineda [facility] 11:37:08 CDT -R[facility] CPT-07591 Level 3 Est. Patient Joseph Pineda [facility] 17:13:29 MFG ASSOC -[facility] CPT-77339 Level 3 Est. Patient Joseph Edwin [facility] 18:42:44 CDT CPT-99516 Level 3 Est. Patient Joseph Edwin [facility] 16:25:39 CDT CPT-58181 Level 3 Est. Patient [facility] 09:52:45 CDT -R[facility] CPT-23937 Level 3 Est. Patient Joseph [facility] 11:03:29 MFG ASSOC -[facility] CPT-98958 Level 3 Est. Patient Joseph [facility] 11:03:08 MFG ASSOC -[facility] CPT-30198 Level 3 Est. Patient Joseph [facility] 14:33:31 CDT -RHC CPT-82742 Level 3 Est. Patient [facility] 17:05:02 MFG ASSOC -RHC CPT-91917 Level 3 Est. Patient Joseph Pineda [facility] 17:48:06 MFG ASSOC -[facility] CPT-85792 Level 3 Est. Patient Joseph Pineda [facility] 14:59:22 MFG ASSOC -R[facility] CPT-64764 Level 3 Est. Patient Joseph Pineda [facility] - 21:45:56 MFG ASSOC [place] [facility] CPT-93876 Level 3 Est. Patient Joseph Pineda [facility] 21:29:50 CDT -RHC CPT-48354 Level 3 Est. Patient Joseph Pineda [facility] 12:41:09 CDT -RHC Procedures Code Procedure Name Date Entry Date Standard Description CPT-33939 Urine Dip (Floor Use Only) 15:17:13 CDT CPT-67371 Dil F ureth int 15:17:13 CDT CPT-03174 Venipuncture Draw Fee 09:19:08 CDT CPT-74599 Lipid - LAB USE ONLY 09:19:07 CDT CPT-JTINJ Asp/Joint Injection 09:26:49 CDT CPT-06334 Chest 2V Frontal and Lat 14:47:43 CDT CPT-JTINJ Asp/Joint Injection 09:51:53 MFG ASSOC CPT-OV Office Visit 17:39:05 CDT CPT-OV Office Visit 15:19:50 CDT CPT-71008 Sono transvag pelvis non OB uterus ovaries cervix 18:04:34 CDT CPT-66084 Venipuncture Draw Fee 08:55:49 MFG ASSOC
--- OUTSIDE RECORDS SUMMARY | 2016-11-20 13:52 | External Medical Summary | Clinical Summary ---
:1965 Author Organization [facility] Address [address] [place] [address] Phone Allergies, Adverse Reactions, Alerts Allergy Name Reaction Description Start Date Severity Status Provider NKDA Critical No Longer Indigo Sexton OFFICE MESSENGER Active NKDA Critical Inactive Adrianna Elder Conditions [...] 464.00 Resolved Ismael Coyne Acute acute 12/26 [facility] laryngitis without mention of obstruction Binge eating 307.51 Active Joseph Pineda Bulimia nervosa disorder 08/15 08/15 Farooq DO Routine V72.31 Active Jillina Routine gynecological 12/14 12/14 [place] gynecological examination OFFICE MESSENGER examination Postmenopausal 627.1 Active Jillina Postmenopausal bleeding 12/14 12/14 [place] bleeding OFFICE MESSENGER Screening for V76.51 Active Ismael Coyne Screening for malignant 12/26 12/26 Amandeep malignant neoplasms of MD neoplasms of colon colon Insomnia, 307.42 Active Indigo 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 OFFICE MESSENGER disorder of initiating or maintaining sleep Establish care V68.89 Active Indigo Encounters for or get 01/16 01/18 Y[place]um OFFICE MESSENGER other specified acquainted administrative visit purpose ABNORMAL [...] Instruction JANUVIA 100 1 tablet by SITAGLIPTIN 74770886824 Active Indigo Active MG TABS mouth daily PHOSPHATE [place] OFFICE MESSENGER METFORMIN 2 tablets METFORMIN HCL 91251315241 Active Indigo Active HCL 500 MG by mouth [place] TB24 twice daily OFFICE MESSENGER TRAMADOL HCL 1/2 po tid 2 TRAMADOL HCL 01053685450 No Jillina Active 50 MG TABS with ES 0 Longer [place] Tylenol prn 1 Active OFFICE MESSENGER pain 5 / 0 2 VYVANSE 20 1 tablet 2 LISDEXAMFETAMIN 39524920323 No Jillina Active MG ORAL CAPS daily for 0 E DIMESYLATE Longer [place] binge 1 Active OFFICE MESSENGER eating 5 disorder / 0 2 LASIX 20 MG 2 tablet by FUROSEMIDE 92780535919 Active Joseph W Active TAB mouth daily Farooq DO CELEBREX 200 1 tablet by CELECOXIB 18121089373 Active Joseph W Active MG CAPS mouth daily Farooq DO with meals PREDNISONE 2 tablets 2 PREDNISONE 54128698165 No Joseph W Active 20 MG TAB today, then 0 Longer Farooq DO 1 tablet 1 Active days 2-4 5 / 0 4 / 3 DIFLUCAN 100 1 tablet by 2 FLUCONAZOLE 10469594291 No Joseph W Active MG TAB mouth daily 0 Longer Farooq DO x 3 days 1 Active 5 / 0 4 / 3 AMARYL 1 MG 1 tablet GLIMEPIRIDE 55680408250 Active Joseph W Active ORAL TABS orally Farooq DO twice daily DIFLUCAN 100 1 tablet by 2 FLUCONAZOLE 59430183817 No Joseph W Active MG TABS mouth every 0 Longer Farooq DO other day 1 Active for 2 doses 5 / 0 1 / 2 3 ZOFRAN 4 MG 1 po q6hr ONDANSETRON HCL 13803157960 Active Joseph Pineda Active TABS PRN Nausea Farooq DO PREDNISONE 2 tabs 2 PREDNISONE 11147195595 No Joseph W Active 20 MG TAB daily for 3 0 Longer Farooq DO days, 1 tab 1 Active daily for 3 4 days, 1/2 / tab daily 1 for 2 days 0 / 2 5 AMOXICILLIN 2 po BID x 2 AMOXICILLIN 85846288377 No Maite C Active 500 MG CAPS 10 days 0 Longer Madril 1 Active PhD 0 / 2 0 LISINOPRIL 1 tablet by 2 LISINOPRIL 69310003216 No Maite C Active 20 MG TABS mouth 0 Longer Madril daily 1 Active PhD 0 0 POTASSIUM 2 capsule 2 POTASSIUM 65052767711 No Joseph Pineda Active CHLORIDE CR by mouth 0 CHLORIDE Longer 10 MEQ CPCR daily 1 Active 4 / 0 8 / 2 9 SPIRONOLACTO 1 tablet by 2 SPIRONOLACTONE 82221014587 No Joseph Pineda Active NE 25 MG TAB mouth daily 0 Longer Farooq 1 Active 4 / 0 8 / 2 9 METFORMIN 1 tablet 2 METFORMIN HCL 57309449191 No Joseph Pineda Active HCL 500 MG by mouth 0 Longer [facility] TABS twice daily 1 Active 4 / 0 8 / 2 9 AMARYL 1 MG 1 tab twice 2 GLIMEPIRIDE 76531515125 No Joseph Pineda Active TABS daily 0 Longer Farooq 1 Active 4 / 0 8 / 2 9 PHENTERMINE 1 po q am 2 PHENTERMINE HCL 75852077465 No Joseph Pineda Active HCL 37.5 MG for wt. 0 Longer Farooq DO TABS loss 1 Active 3 / 1 2 / 2 3 PROMETHAZINE 1 tab by 2 PROMETHAZINE 86812938704 No Joseph W Active HCL 25 MG mouth every 0 HCL Longer [facility] TABS 6 hours as 1 Active needed 3 / 0 9 / 0 9 CIPROFLOXACI Take one 2 CIPROFLOXACIN 42735307897 No Joseph W Active N HCL 500 MG (1) tablet 0 HCL Longer Farooq DO TABS by mouth 1 Active twice a day 3 / 0 9 / 0 9 ABILIFY 5 MG one p.o. q. 2 ARIPIPRAZOLE 09499419860 No Joseph W Active TABS day 0 Longer Farooq DO 1 Active 3 / 0 9 / 0 9 HYDROCHLOROT 2 tabs 2 HYDROCHLOROTHIA 69572006977 No Joseph W Active HIAZIDE 25 every 0 ZIDE Longer Farooq DO MG TABS morning 1 Active 3 / 0 6 / 2 7 ABILIFY 2 MG 1 po q hs 2 ARIPIPRAZOLE 96409090592 No Joseph W Active TABS for major 0 Longer Farooq depression 1 Active 3 / 0 5 / 0 7 ADIPEX-P 1/2 tab po 2 PHENTERMINE HCL 24572382207 No Casey Active 37.5 MG CAPS q am for 0 Longer [place] weight loss 1 Active PA 3 / 0 5 / 0 1 CIPRO 500 MG 1 tablet by 2 CIPROFLOXACIN 15178298145 No Casey Active TAB mouth twice 0 HCL Longer [place] daily 1 Active PA 3 / 0 5 / 0 1 NECON 35 1 po daily 2 NORETHINDRONE-E 02329968552 No Casey Active () -35 0 ESTRADIOL Longer [place] MG-MCG TABS 1 Active PA 3 / 0 5 / 0 1 TRAMADOL HCL 1 po tid 2 TRAMADOL HCL 86263244446 No Casey Active 50 MG TABS with ES 0 Longer [place] Tylenol 1 Active PA 3 / 0 5 / 0 1 FLUCONAZOLE one p.o. q. 2 FLUCONAZOLE 10081915880 No Casey Active 100 MG TABS day 2 days 0 Longer [place] 1 Active PA 3 / 0 5 / 0 1 POTASSIUM 1 capsule 2 POTASSIUM 09553859249 No Casey Active CHLORIDE CR by mouth 0 CHLORIDE Longer 10 MEQ CPCR daily 1 Active PA 3 / 0 5 / 0 1 IMIPRAMINE Take 6 IMIPRAMINE HCL 78473688125 Active Joseph W Active HCL 50 MG tablets by [facility] TABS mouth at bedtime DIFLUCAN 100 1 tablet by 2 FLUCONAZOLE 13136018335 No Joseph W Active MG TAB mouth daily 0 Longer Farooq DO 1 Active 2 / 0 2 / 2 4 METOPROLOL 1/2 tab po METOPROLOL 28788857434 Active Joseph W Active TARTRATE 25 bid TARTRATE Farooq DO MG TABS VERAPAMIL 2 po bid VERAPAMIL HCL 34477488667 Active Joseph W Active HCL CR 120 Farooq DO MG TAB CR PERMETHRIN 5 apply neck 2 PERMETHRIN 03400458771 No Joseph W Active % CREA to toes 0 Longer Farooq DO tonight and 1 Active then rinse 2 off in / morning. 0 repeat at 7 1 days / 2 0 SEROQUEL XR one p.o. q. 2 QUETIAPINE 70384263241 No Joseph W Active 50 MG evening 0 FUMARATE Longer Farooq DO [id number] 1 Active 2 / 0 1 / 2 0 TRAMADOL HCL 1-2 tablets 2 TRAMADOL HCL 67120975850 No Joseph W Active 50 MG TABS every 6-8 0 Longer Farooq DO hours as 1 Active needed for 2 pain / 0 1 / 2 0 ALPRAZOLAM 3 one p.o. ALPRAZOLAM 81408943794 Active Joseph W Active MG [id number] q.h.s. Farooq DO ALPRAZOLAM Take 1 2 ALPRAZOLAM 56509370859 No Joseph W Active XR [id number] tablet by 0 [id number] Longer Farooq DO mouth at 1 Active bedtime 1 / 2 9 DIFLUCAN 100 1 tablet by 2 FLUCONAZOLE 13294016924 No Joseph W Active MG TAB mouth daily 0 Longer Farooq DO 1 Active 0 / 0 6 AMBIEN 10 MG 1 tab by ZOLPIDEM 94873743216 Active Joseph W Active TAB mouth at TARTRATE Farooq DO bedtime as needed for sleep DIFLUCAN 100 1 tablet DIFLUCAN 113916 FLUCONAZOLE Inactive MG TAB by mouth 100 MG TAB daily ALPRAZOLAM Take 1 ALPRAZOLAM ALPRAZOLAM Inactive XR [id number] tablet by XR [id number] mouth at [id number] bedtime TRAMADOL HCL 1-2 TRAMADOL 816001 TRAMADOL HCL Inactive 50 MG TABS tablets HCL 50 MG every 6-8 TABS hours as needed for pain SEROQUEL XR one p.o. SEROQUEL XR QUETIAPINE Inactive 50 MG q. evening 50 MG FUMARATE [id number] PERMETHRIN 5 apply neck PERMETHRIN 086222 PERMETHRIN Inactive % CREA to toes 5 % CREA tonight and then rinse off in morning. repeat at 7 days DIFLUCAN 100 1 tablet DIFLUCAN 067836 FLUCONAZOLE Inactive MG TAB by mouth 100 MG TAB daily POTASSIUM 1 capsule POTASSIUM POTASSIUM Inactive CHLORIDE CR by mouth CHLORIDE CR CHLORIDE 10 MEQ CPCR daily 10 MEQ CPCR FLUCONAZOLE one p.o. FLUCONAZOLE 19760111 FLUCONAZOLE Inactive 100 MG TABS q. day 2 100 MG TABS days TRAMADOL HCL 1 po tid TRAMADOL 108501 TRAMADOL HCL Inactive 50 MG TABS with ES HCL 50 MG Tylenol TABS NECON 1/35 1 po daily NECON 1/35 NORETHINDRONE- Inactive (28) 1-35 (28) 1-35 ETH ESTRADIOL MG-MCG TABS MG-MCG TABS CIPRO 500 MG 1 tablet CIPRO 500 702820 CIPROFLOXACIN Inactive TAB by mouth MG TAB HCL twice daily ADIPEX-P 1/2 tab po ADIPEX-P 707238 PHENTERMINE Inactive 37.5 MG CAPS q am for 37.5 MG HCL weight CAPS loss ABILIFY 2 MG 1 po q hs ABILIFY 2 361233 ARIPIPRAZOLE Inactive TABS for major MG TABS depression HYDROCHLOROT 2 tabs HYDROCHLORO 171711 HYDROCHLOROTHI Inactive HIAZIDE 25 every THIAZIDE 25 AZIDE MG TABS morning MG TABS ABILIFY 5 MG one p.o. ABILIFY 5 759924 ARIPIPRAZOLE Inactive TABS q. day MG TABS CIPROFLOXACI Take one CIPROFLOXAC 610613 CIPROFLOXACIN Inactive N HCL 500 MG (1) tablet IN HCL 500 HCL TABS by mouth MG TABS twice a day PROMETHAZINE 1 tab by PROMETHAZIN 926727 PROMETHAZINE Inactive HCL 25 MG mouth E HCL 25 MG HCL TABS every 6 TABS hours as needed PHENTERMINE 1 po q am PHENTERMINE 000706 PHENTERMINE Inactive HCL 37.5 MG for wt. HCL 37.5 MG HCL TABS loss TABS AMARYL 1 MG 1 tab AMARYL 1 MG 689264 GLIMEPIRIDE Inactive TABS twice TABS daily METFORMIN 1 tablet METFORMIN 755820 METFORMIN HCL Inactive HCL 500 MG by mouth HCL 500 MG TABS twice TABS daily SPIRONOLACTO 1 tablet SPIRONOLACT 835123 SPIRONOLACTONE Inactive NE 25 MG TAB by mouth ONE 25 MG daily TAB POTASSIUM 2 capsule POTASSIUM POTASSIUM Inactive CHLORIDE CR by mouth CHLORIDE CR CHLORIDE 10 MEQ CPCR daily 10 MEQ CPCR LISINOPRIL 1 tablet LISINOPRIL 680102 LISINOPRIL Inactive 20 MG TABS by mouth 20 MG TABS daily DIFLUCAN 100 1 tablet DIFLUCAN 265341 FLUCONAZOLE Inactive MG TABS by mouth 100 MG TABS every other day for 2 doses DIFLUCAN 100 1 tablet DIFLUCAN 980303 FLUCONAZOLE Inactive MG TAB by mouth 100 MG TAB daily x 3 days PREDNISONE 2 tablets PREDNISONE 750559 PREDNISONE Inactive 20 MG TAB today, 20 MG TAB then 1 tablet days 2-4 VYVANSE 20 1 tablet VYVANSE 20 LISDEXAMFETAMI Inactive MG ORAL CAPS daily for MG ORAL NE DIMESYLATE binge CAPS eating disorder TRAMADOL HCL 1/2 po tid TRAMADOL 401087 TRAMADOL HCL Inactive 50 MG TABS with ES HCL 50 MG Tylenol TABS prn pain AMOXICILLIN 2 po BID x AMOXICILLIN 209524 AMOXICILLIN Inactive 500 MG CAPS 10 days 500 MG CAPS PREDNISONE 2 tabs PREDNISONE 963475 PREDNISONE Inactive 20 MG TAB daily for [...] HGBA1C - Chemistry sodium, serum 140 mmol/L 282-368 0844/04/13 potassium, serum 3.9 mmol/L 3.5-5.2 chloride, serum [...] 4.3-6.0 Lab Report: CBC, Comp. Metabolic Panel, [facility] - Hematology leukocyte count, blood [...] 219 10^3/MM^3 10*3/mm3 142-424 Lab Report: CBC, [facility] - Chemistry hemoglobin A1C, blood, as [...] 198 10^3/MM^3 10*3/mm3 142-424 Lab Report: Chlamydia/GC APTIMA/20284 - Lab chlamydia DNA probe NOT DETECTED NOT DETECTED Lab Report: Chlamydia/GC APTIMA/19453 - Microbiology Neisseria gonorrhoeae DNA probe NOT DETECTED NOT DETECTED Lab Report: Comp. Metabolic Panel, Lipid Panel - Chemistry sodium, serum 136 mmol/L 300-192 2397/01/04 carbon dioxide, venous blood 27.0 mmol/L 21.0-32.0 potassium, serum 4.6 mmol/L 3.5-5.2 chloride, serum 98 mmol/L 98-107 blood glucose 174 mg/dL 65-110 urea nitrogen, blood 12 mg/dL 7-18 creatinine, serum 0.78 mg/dL 0.55-1.30 alanine aminotransferase (SGPT), serum 65 U/L 12-78 aspartate aminotransferase (SGOT), serum 34 U/L 15-37 calcium, serum 8.9 mg/dL 8.5-10.1 bilirubin, serum, total 0.40 mg/dL 0.00-1.00 cholesterol, serum 219 mg/dL 058-406 1319/01/04 triglyceride, serum, fasting 214 mg/dL 30-200 HDL [...] mg/g mg/g{creat} 0-29 sodium, serum 140 mmol/L 984-250 0150/07/21 potassium, serum 3.9 mmol/L 3.5-5.2 chloride, serum [...] 142-424 Encounters Code Encounter Date Provider Facility CPT-77310 Level 3 Est. Patient Indigo Sexton ALEJANDRO [facility] 18:59:38 CDT CPT-59626 Level 3 Est. Patient Joseph Pineda [facility] 14:42:12 CDT -[facility] CPT-81734 Level 3 Est. Patient Joseph Pineda [facility] 22:18:20 CDT -[facility] CPT-05181 Level 3 Est. Patient Joseph Pineda [facility] 16:46:04 CDT -[facility] CPT-73825 Level 3 Est. Patient Joseph Trivedi [facility] 15:39:53 CDT -[facility] CPT-00369 Level 3 Est. Patient Maite Sanchez MD PhD [facility] 13:33:34 CDT -[facility] CPT-33419 Level 3 Est. Patient Joseph Pineda [facility] 11:37:08 CDT -[facility] CPT-00282 Level 3 Est. Patient Joseph Pineda [facility] 17:13:29 COMBO WELDER -[facility] CPT-53901 Level 3 Est. Patient Joseph Edwin [facility] 18:42:44 CDT CPT-19088 Level 3 Est. Patient Joseph Edwin [facility] 16:25:39 CDT CPT-30096 Level 3 Est. Patient Casey Garzaner [facility] 09:52:45 CDT -[facility] CPT-58679 Level 3 Est. Patient Joseph Edwin [facility] 11:03:29 COMBO WELDER -[facility] CPT-11085 Level 3 Est. Patient [place] Edwin [facility] 11:03:08 COMBO WELDER -[facility] CPT-82476 Level 3 Est. Patient [facility] 14:33:31 CDT -[facility]HC CPT-72896 Level 3 Est. Patient [facility] 17:05:02 COMBO WELDER -[facility] CPT-67042 Level 3 Est. Patient [facility] 17:48:06 COMBO WELDER -[facility] CPT-78789 Level 3 Est. Patient [facility] 14:59:22 COMBO WELDER -[facility] CPT-34311 Level 3 Est. Patient [facility] - 21:45:56 COMBO WELDER [facility] CPT-74857 Level 3 Est. Patient [facility] 21:29:50 CDT -RHC CPT-50154 Level 3 Est. Patient [facility] 12:41:09 CDT -RHC Procedures Code Procedure Name Date Entry Date Standard Description CPT-OV Office Visit 17:39:05 CDT CPT-OV Office Visit 15:19:50 CDT CPT-38053 Sono transvag pelvis non OB uterus ovaries cervix 18:04:34 CDT CPT-20749 Venipuncture Draw Fee 08:55:49 COMBO WELDER
--- OUTSIDE RECORDS SUMMARY | 2016-11-20 13:53 | External Medical Summary | Clinical Summary ---
:1965 Author Organization [facility] [employer] Address [address] [address] Phone Allergies, Adverse Reactions, Alerts Allergy Name Reaction Description Start Date Severity Status Provider VERSED States jsut about Critical Active Gloria Saavedra CHILD DEVELOPMENT ASSOCIATE TEACHER killed her NKDA Critical Active Indigo Yokum PLANNING CONSULTANT NKDA Critical No Longer Indigo [employer] PLANNING CONSULTANT Active NKDA Critical Inactive Adrianna Elder Conditions [...] Resolved Indigo Other malaise 05/24 07/02 [employer] PLANNING CONSULTANT and fatigue SLEEP APNEA, 327.23 Active Joseph Pineda Obstructive OBSTRUCTIVE, 06/27 06/27 Farooq DO sleep apnea MILD (adult) (pediatric) OVERWEIGHT 278.02 Inactive Joseph Pineda Overweight 06/28 06/28 Farooq DO Obesity 278.00 Active Indigo Obesity, 06/28 10/18 [employer] PLANNING CONSULTANT unspecified OTH GENERAL V70.3 Resolved Maite Gutierrez Other general MEDICAL Laura ONEAL medical EXAMINATION PhD examination for ADMIN administrative PURPOSES purposes OTHER 790.29 Resolved Maite C Other abnormal ABNORMAL 05/20 Laura ONEAL glucose GLUCOSE PhD ACUTE 466.0 Resolved Maite Gutierrez Acute bronchitis BRONCHITIS 09/02 Laura ONEAL PhD DEPENDENT 782.3 Resolved Indigo Edema EDEMA, LEGS, 10/29 10/18 [employer] PLANNING CONSULTANT BILATERAL HYPOKALEMIA, 276.8 Resolved Indigo Hypopotassemia MILD 10/29 07/02 [employer] PLANNING CONSULTANT Diabetes, 250.00 Inactive Joseph Pineda Diabetes Type 2 06/27 06/27 Farooq DO mellitus without mention of complication, type II or unspecified type, not stated as uncontrolled Diabetes 250.02 Resolved Indigo Diabetes mellitus, 06/27 10/18 [employer] PLANNING CONSULTANT mellitus without type II, mention of uncontrolled [...] Resolved Indigo Routine gynecological 12/14 07/02 [employer] PLANNING CONSULTANT gynecological examination examination Postmenopausa 627.1 Resolved Indigo Postmenopausal l bleeding 12/14 07/02 [employer] PLANNING CONSULTANT bleeding Screening for V76.51 Resolved Indigo Screening for malignant 12/26 07/02 [employer] PLANNING CONSULTANT malignant neoplasms of neoplasms of colon colon Insomnia, 307.42 Active Indigo 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 PLANNING CONSULTANT disorder of initiating or maintaining sleep Establish V68.89 Resolved Indigo Encounters for care or get 01/16 07/02 [employer] PLANNING CONSULTANT other specified acquainted administrative visit purpose Weakness, 342.90 Resolved Indigo Hemiplegia, left side of 06/20 10/18 [employer] PLANNING CONSULTANT unspecified, body affecting unspecified side TIA 435.9 Active Indigo Unspecified 06/20 07/02 [employer] PLANNING CONSULTANT transient cerebral ischemia Knee pain, 719.46 Active Indigo Pain in joint bilateral 06/20 10/18 [employer]okum PLANNING CONSULTANT involving lower leg Bronchitis 490 Resolved Indigo Bronchitis, not 07/23 10/18 [employer] PLANNING CONSULTANT specified as acute or chronic Diabetes 357.2 Active Maliheh Polyneuropathy mellitus, 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 Knee pain, 719.46 Active Indigo Pain in joint right 06/20 10/18 [employer]um PLANNING CONSULTANT involving lower leg Jesi 112.3 Active Indigo Candidiasis of intertrigo 10/09 10/18 [employer] PLANNING CONSULTANT skin and nails Hyperlipidemi 272.4 Active Anne Other and a 12/24 12/24 Neil unspecified RMA hyperlipidemia Incontinence, 788.33 Active Indigo Mixed mixed, 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 PLANNING CONSULTANT incontinence urge/stress (female) (male) Female stress 625.6 Active Yury Monaco Stress incontinence 01/03 01/03 Cy patel MD female Vaginal odor 623.8 Active Gloria Other specified 05/28 05/28 Naff CHILD DEVELOPMENT ASSOCIATE TEACHER noninflammatory disorders of vagina Urinary tract 599.0 Active Indigo Urinary tract infection 05/28 05/28 Yok PLANNING CONSULTANT infection, site not specified Urine odor 791.9 Active Indigo Other 05/28 06/26 Yokum PLANNING CONSULTANT nonspecific findings on examination of urine Unspecified Active Yury Monaco dyspareunia 08/19 08/19 Cy ONEAL Depression Active Indigo 08/26 [employer]okum PLANNING CONSULTANT Anxiety Active Indigo Anxiety state, Disorder 08/26 [employer] PLANNING CONSULTANT unspecified ABNORMAL VAGINAL ICD-626.9 Inactive Maite Sanchez BLEEDING PhD SCABIES ICD-133.0 Inactive Maite C Laura PhD FATIGUE ICD-780.79 Inactive Indigo [employer] PLANNING CONSULTANT OTH GENERAL ICD-V70.3 Inactive Maite C Laura MEDICAL MD PhD EXAMINATION ADMIN PURPOSES OTHER ABNORMAL ICD-790.29 Inactive Maite C Laura GLUCOSE PhD ACUTE BRONCHITIS ICD-466.0 Inactive Maite Sanchez PhD DEPENDENT EDEMA, ICD-782.3 Inactive Indigo Yokum LEGS, BILATERAL PLANNING CONSULTANT HYPOKALEMIA, MILD ICD-276.8 Inactive Indigo [employer] PLANNING CONSULTANT Diabetes mellitus, ICD-250.02 Inactive Indigo Yokum type II, PLANNING CONSULTANT uncontrolled Laryngitis, acute ICD-464.00 Inactive Ismael Coyne Amandeep ONEAL Routine ICD-V72.31 Inactive Indigo [employer]um gynecological PLANNING CONSULTANT examination Postmenopausal ICD-627.1 Inactive Indigo Yokum 2015 bleeding PLANNING CONSULTANT Screening for ICD-V76.51 Inactive Indigo Yokum 2015 malignant PLANNING CONSULTANT neoplasms of colon Establish care or ICD-V68.89 Inactive Indigo Yokum get acquainted PLANNING CONSULTANT visit Weakness, left ICD-342.90 Inactive Indigo Yokum side of body PLANNING CONSULTANT Bronchitis ICD-490 Inactive Indigo [employer] PLANNING CONSULTANT Sinusitis, ICD-461.1 Inactive Ismael Coyne frontal, acute Amandeep ONEAL Medication List Medication Instructions Start Stop Generic NDC Status Provider Patient Date Date Name Instruction ELKE 5 Take one ARIPIPRAZOLE 83019067711 Active Indigo Active MG ORAL tablet daily [facility]okum TABS for PLANNING CONSULTANT depression CELEBREX 1 tablet by 2 CELECOXIB 49695352118 No Indigo Active 200 MG CAPS mouth daily 0 Longer Yokum with meals 1 Active PLANNING CONSULTANT 7 / 0 4 / 2 4 TROKENDI XR 1 tab by 2 TOPIRAMATE 70788118807 No Indigo Active 100 MG ORAL mouth daily 0 Longer Yokum [id number] 1 Active PLANNING CONSULTANT 7 / 0 4 / 2 4 VESICARE 10 1 pill by SOLIFENACIN 56709147276 Active J Carlos Enrique Active MG TABS mouth daily SUCCINATE Cy luna MD overactive bladder CIPRO 250 1 tablet by 2 CIPROFLOXACIN 75714726382 No Indigo Active MG TAB mouth twice 0 HCL Longer Yokum daily 1 Active PLANNING CONSULTANT 7 / 0 1 / 2 7 METFORMIN 2 tablets by 2 METFORMIN HCL 85830866614 No Indigo Active HCL 500 MG mouth twice 0 Longer Yokum TB24 daily 1 Active PLANNING CONSULTANT 6 / 0 8 / 2 2 AMARYL 1 MG 1 tablet 2 GLIMEPIRIDE 04176374403 No Indigo Active ORAL TABS orally twice 0 Longer Yokum daily 1 Active PLANNING CONSULTANT 6 / 0 8 / 2 2 NYSTATIN apply to NYSTATIN 75416933346 Active Indigo Active 974844 rash TID PRN Yokum UNIT/GM PLANNING CONSULTANT CREA METOPROLOL 1 tab po bid METOPROLOL 08067575859 Active Indigo Active TARTRATE 25 TARTRATE Yokum MG TABS PLANNING CONSULTANT AZITHROMYCI 2 po qd x 1 2 AZITHROMYCIN 60110833945 No Jillina Active N 250 MG day, then 1 0 Longer [place]ell TABS po qd x 4 1 Active PLANNING CONSULTANT days 6 / 0 3 / 2 6 PREDNISONE 2 pills 2 PREDNISONE 39998243317 No Jillina Active 20 MG TAB daily x 4 0 Longer [place]ell days 1 Active PLANNING CONSULTANT 6 / 0 3 / 2 5 PIOGLITAZON take one a PIOGLITAZONE 40063633299 Active Maliheh Active E HCL 30 MG day HCL Ziglari ORAL TABS REEL SLITTER JANUVIA 100 1 tablet by 2 SITAGLIPTIN 79937375570 No Indigo Active MG TABS mouth daily 0 PHOSPHATE Longer Yokum 1 Active PLANNING CONSULTANT 6 / 0 2 / 6 ATORVASTATI 1 pill by ATORVASTATIN 57615840188 Active Hannah Active N CALCIUM mouth CALCIUM Neal 10 MG TABS nightly, for PLANNING CONSULTANT cholesterol ASPIRIN 81 1 po qd ASPIRIN 58964237250 Active Indigo Active MG ORAL [facility]um TABS PLANNING CONSULTANT NITROFURANT One capsule 2 NITROFURANTOIN 89974612894 No Indigo Active OIN MONOHYD BID for UTI 0 MONOHYD MACRO Longer Yokum MACRO 100 1 Active PLANNING CONSULTANT MG CAPS 6 / 0 2 / 1 3 TRAMADOL 1/2 po tid 2 TRAMADOL HCL 78394522751 No Jillina Active HCL 50 MG with ES 0 Longer [place] TABS Tylenol prn 1 Active PLANNING CONSULTANT pain 5 / 0 8 / 1 2 VYVANSE 20 1 tablet 2 LISDEXAMFETAMIN 87093278070 No Jillina Active MG ORAL daily for 0 E DIMESYLATE Longer [place] CAPS binge eating 1 Active PLANNING CONSULTANT disorder 5 / 0 8 / 1 2 LASIX 20 MG 2 tablet by FUROSEMIDE 53842848101 Active Ranulfo Villalpando Active TAB mouth daily Rory ONEAL PREDNISONE 2 tablets 2 PREDNISONE 86542867857 No Joseph Pineda Active 20 MG TAB today, then 0 Longer Farooq DO 1 tablet 1 Active days 2-4 5 / 0 4 / 1 3 DIFLUCAN 1 tablet by 2 FLUCONAZOLE 54266106298 No Joseph Pineda Active 100 MG TAB mouth daily 0 Longer Farooq DO x 3 days 1 Active 5 / 0 4 / 3 DIFLUCAN 1 tablet by 2 FLUCONAZOLE 15448081094 No Joseph Pineda Active 100 MG TABS mouth every 0 Longer Farooq DO other day 1 Active for 2 doses 5 / 0 1 / 2 3 ZOFRAN 4 MG 1 po q6hr ONDANSETRON HCL 37956086555 Active Joseph Pineda Active TABS PRN Nausea Farooq DO PREDNISONE 2 tabs daily 2 PREDNISONE 63182758686 No Joseph Pineda Active 20 MG TAB for 3 days, 0 Longer Farooq DO 1 tab daily 1 Active for 3 days, 4 1/2 tab / daily for 2 1 days 0 / 2 5 AMOXICILLIN 2 po BID x 2 AMOXICILLIN 72079905269 No Maite C Active 500 MG CAPS 10 days 0 Longer Madril 1 Active PhD 0 / 2 0 LISINOPRIL 1 tablet by 2 LISINOPRIL 57234989354 No Maite C Active 20 MG TABS mouth daily 0 Longer Madril 1 Active PhD 0 0 POTASSIUM 2 capsule by 2 POTASSIUM 37531665472 No Joseph Pineda Active CHLORIDE CR mouth daily 0 CHLORIDE Longer Farooq DO 10 MEQ CPCR 1 Active 4 / 0 8 / 2 9 SPIRONOLACT 1 tablet by 2 SPIRONOLACTONE 76087155226 No Joseph Pineda Active ONE 25 MG mouth daily 0 Longer Farooq DO TAB 1 Active 4 / 0 8 / 2 9 METFORMIN 1 tablet by 2 METFORMIN HCL 60178477075 No Joseph Pineda Active HCL 500 MG mouth twice 0 Longer Farooq DO TABS daily 1 Active 4 / 0 8 / 2 9 AMARYL 1 MG 1 tab twice 2 GLIMEPIRIDE 72828844824 No Joseph Pineda Active TABS daily 0 Longer Farooq DO 1 Active 4 / 0 8 / 2 9 PHENTERMINE 1 po q am 2 PHENTERMINE HCL 74825880789 No Joseph Pineda Active HCL 37.5 MG for wt. loss 0 Longer Farooq DO TABS 1 Active 3 / 1 2 / 2 3 PROMETHAZIN 1 tab by 2 PROMETHAZINE 25592496037 No Joseph Pineda Active E HCL 25 MG mouth every 0 HCL Longer Farooq DO TABS 6 hours as 1 Active needed 3 / 0 9 / 0 9 CIPROFLOXAC Take one (1) 2 CIPROFLOXACIN 96288461731 No Joseph W Active IN HCL 500 tablet by 0 HCL Longer Farooq DO MG TABS mouth twice 1 Active a day 3 / 0 9 / 0 9 ABILIFY 5 one p.o. q. 2 ARIPIPRAZOLE 81052962109 No Joseph W Active MG TABS day 0 Longer Farooq DO 1 Active 3 / 0 9 / 0 9 HYDROCHLORO 2 tabs every 2 HYDROCHLOROTHIA 66890474360 No Joseph W Active THIAZIDE 25 morning 0 ZIDE Longer Farooq DO MG TABS 1 Active 3 / 0 6 / 2 7 ABILIFY 2 1 po q hs 2 ARIPIPRAZOLE 16732882121 No Joseph W Active MG TABS for major 0 Longer Farooq DO depression 1 Active 3 / 0 5 / 0 7 ADIPEX-P 1/2 tab po q 2 PHENTERMINE HCL 69756207251 No Casey Active 37.5 MG am for 0 Longer [place] CAPS weight loss 1 Active PA 3 / 0 5 / 0 1 CIPRO 500 1 tablet by 2 CIPROFLOXACIN 62993734006 No Casey Active MG TAB mouth twice 0 HCL Longer Leonarda daily 1 Active PA 3 / 0 5 / 0 1 NECON 35 1 po daily 2 NORETHINDRONE-E 40431738817 No Casey Active (28) 1-35 0 TH ESTRADIOL Longer [place] MG-MCG TABS 1 Active PA 3 / 0 5 / 0 1 TRAMADOL 1 po tid 2 TRAMADOL HCL 04129389564 No Casey Active HCL 50 MG with ES 0 Longer [place] TABS Tylenol 1 Active PA 3 / 0 5 / 0 1 FLUCONAZOLE one p.o. q. 2 FLUCONAZOLE 04038593641 No Casey Active 100 MG TABS day 2 days 0 Longer Leonarda 1 Active PA 3 / 0 5 / 0 1 POTASSIUM 1 capsule by 2 POTASSIUM 72979264958 No Casey Active CHLORIDE CR mouth daily 0 CHLORIDE Longer [place] 10 MEQ CPCR 1 Active PA 3 / 0 5 / 0 1 IMIPRAMINE Take 6 IMIPRAMINE HCL 85576188980 Active Indigo Active HCL 50 MG tablets by Yokum TABS mouth at PLANNING CONSULTANT bedtime DIFLUCAN 1 tablet by 2 FLUCONAZOLE 73293217845 No Joseph W Active 100 MG TAB mouth daily 0 Longer Farooq DO 1 Active 2 / 0 2 / 2 4 VERAPAMIL 2 po bid VERAPAMIL HCL 22143118037 Active Indigo Active HCL CR 120 Yokum MG TAB CR PLANNING CONSULTANT PERMETHRIN apply neck 2 PERMETHRIN 65783543014 No Josehp W Active 5 % CREA to toes 0 Longer Farooq DO tonight and 1 Active then rinse 2 off in / morning. 0 repeat at 7 1 days / 2 0 SEROQUEL XR one p.o. q. 2 QUETIAPINE 47957822114 No Joseph W Active 50 MG evening 0 FUMARATE Longer Farooq DO [id number] 1 Active 2 / 0 1 / 2 0 TRAMADOL 1-2 tablets 2 TRAMADOL HCL 97864257069 No Joseph W Active HCL 50 MG every 6-8 0 Longer Farooq DO TABS hours as 1 Active needed for 2 pain / 0 1 / 2 0 ALPRAZOLAM one p.o. ALPRAZOLAM 66616505086 Active Indigo Active 3 MG q.h.s. Yokum [id number] PLANNING CONSULTANT ALPRAZOLAM Take 1 2 ALPRAZOLAM 33657090257 No Joseph W Active XR tablet by 0 [id number] Longer Farooq DO [id number] mouth at 1 Active bedtime 1 / 2 9 DIFLUCAN 1 tablet by 2 FLUCONAZOLE 35269784069 No Joseph W Active 100 MG TAB mouth daily 0 Longer Farooq DO 1 Active 0 / 0 6 AMBIEN 10 1 tab by ZOLPIDEM 67878312546 Active Indigo Active MG TAB mouth at TARTRATE Yokum bedtime as PLANNING CONSULTANT needed for sleep DIFLUCAN 100 1 tablet DIFLUCAN 616308 FLUCONAZOLE Inactive MG TAB by mouth 100 MG TAB daily ALPRAZOLAM Take 1 ALPRAZOLAM ALPRAZOLAM Inactive XR [id number] tablet by XR [id number] mouth at [id number] bedtime TRAMADOL HCL 1-2 TRAMADOL 709634 TRAMADOL HCL Inactive 50 MG TABS tablets HCL 50 MG every 6-8 TABS hours as needed for pain SEROQUEL XR one p.o. SEROQUEL XR QUETIAPINE Inactive 50 MG q. 50 MG FUMARATE [id number] evening [id number] PERMETHRIN 5 apply PERMETHRIN 036154 PERMETHRIN Inactive % CREA neck to 5 % CREA toes tonight and then rinse off in morning. repeat at 7 days DIFLUCAN 100 1 tablet DIFLUCAN 191136 FLUCONAZOLE Inactive MG TAB by mouth 100 MG TAB daily POTASSIUM 1 capsule POTASSIUM POTASSIUM Inactive CHLORIDE CR by mouth CHLORIDE CR CHLORIDE 10 MEQ CPCR daily 10 MEQ CPCR FLUCONAZOLE one p.o. FLUCONAZOLE 19760111 FLUCONAZOLE Inactive 100 MG TABS q. day 2 100 MG TABS days TRAMADOL HCL 1 po tid TRAMADOL 567236 TRAMADOL HCL Inactive 50 MG TABS with ES HCL 50 MG Tylenol TABS NECON 1/35 1 po NECON 1/35 NORETHINDRONE- Inactive (28) 1-35 daily (28) 1-35 ETH ESTRADIOL MG-MCG TABS MG-MCG TABS CIPRO 500 MG 1 tablet CIPRO 500 231796 CIPROFLOXACIN Inactive TAB by mouth MG TAB HCL twice daily ADIPEX-P 1/2 tab ADIPEX-P 381396 PHENTERMINE Inactive 37.5 MG CAPS po q am 37.5 MG HCL for CAPS weight loss ABILIFY 2 MG 1 po q hs ABILIFY 2 335189 ARIPIPRAZOLE Inactive TABS for major MG TABS depressio n HYDROCHLOROT 2 tabs HYDROCHLORO 130515 HYDROCHLOROTHI Inactive HIAZIDE 25 every THIAZIDE 25 AZIDE MG TABS morning MG TABS ABILIFY 5 MG one p.o. ABILIFY 5 893090 ARIPIPRAZOLE Inactive TABS q. day MG TABS CIPROFLOXACI Take one CIPROFLOXAC 950117 CIPROFLOXACIN Inactive N HCL 500 MG (1) IN HCL 500 HCL TABS tablet by MG TABS mouth twice a day PROMETHAZINE 1 tab by PROMETHAZIN 183483 PROMETHAZINE Inactive HCL 25 MG mouth E HCL 25 MG HCL TABS every 6 TABS hours as needed PHENTERMINE 1 po q am PHENTERMINE 018327 PHENTERMINE Inactive HCL 37.5 MG for wt. HCL 37.5 MG HCL TABS loss TABS AMARYL 1 MG 1 tab AMARYL 1 MG 090804 GLIMEPIRIDE Inactive TABS twice TABS daily METFORMIN 1 tablet METFORMIN 003323 METFORMIN HCL Inactive HCL 500 MG by mouth HCL 500 MG TABS twice TABS daily SPIRONOLACTO 1 tablet SPIRONOLACT 187298 SPIRONOLACTONE Inactive NE 25 MG TAB by mouth ONE 25 MG daily TAB POTASSIUM 2 capsule POTASSIUM POTASSIUM Inactive CHLORIDE CR by mouth CHLORIDE CR CHLORIDE 10 MEQ CPCR daily 10 MEQ CPCR LISINOPRIL 1 tablet LISINOPRIL 396118 LISINOPRIL Inactive 20 MG TABS by mouth 20 MG TABS daily DIFLUCAN 100 1 tablet DIFLUCAN 979439 FLUCONAZOLE Inactive MG TABS by mouth 100 MG TABS every other day for 2 doses DIFLUCAN 100 1 tablet DIFLUCAN 626910 FLUCONAZOLE Inactive MG TAB by mouth 100 MG TAB daily x 3 days PREDNISONE 2 tablets PREDNISONE 371081 PREDNISONE Inactive 20 MG TAB today, 20 MG TAB then 1 tablet days 2-4 VYVANSE 20 1 tablet VYVANSE 20 LISDEXAMFETAMI Inactive MG ORAL CAPS daily for MG ORAL NE DIMESYLATE binge CAPS eating disorder TRAMADOL HCL 1/2 po TRAMADOL 732040 TRAMADOL HCL Inactive 50 MG TABS tid with HCL 50 MG ES TABS Tylenol prn pain JANUVIA 100 1 tablet JANUVIA 100 SITAGLIPTIN Inactive MG TABS by mouth MG TABS PHOSPHATE daily AMARYL 1 MG 1 tablet AMARYL 1 MG 730468 GLIMEPIRIDE Inactive ORAL TABS orally ORAL TABS twice daily METFORMIN 2 tablets METFORMIN METFORMIN HCL Inactive HCL 500 MG by mouth HCL 500 MG TB24 twice TB24 daily TROKENDI XR 1 tab by TROKENDI XR TOPIRAMATE Inactive 100 MG ORAL mouth 100 MG ORAL [id number] daily [id number] CELEBREX 200 1 tablet CELEBREX 707458 CELECOXIB Inactive MG CAPS by mouth 200 MG CAPS daily with meals AMOXICILLIN 2 po BID AMOXICILLIN 832232 AMOXICILLIN Inactive 500 MG CAPS x 10 days 500 MG CAPS PREDNISONE 2 tabs PREDNISONE 883501 PREDNISONE Inactive 20 MG TAB daily for 20 MG TAB 3 days, 1 tab daily for 3 days, 1/2 tab daily for 2 days NITROFURANTO One NITROFURANT 1414801 NITROFURANTOIN Inactive IN MONOHYD capsule OIN MONOHYD MONOHYD MACRO MACRO 100 MG BID for MACRO 100 CAPS UTI MG CAPS PREDNISONE 2 pills PREDNISONE 974060 PREDNISONE Inactive 20 MG TAB daily x 4 20 MG TAB days AZITHROMYCIN 2 po qd x AZITHROMYCI 5987245 AZITHROMYCIN Inactive 250 MG TABS 1 day, N 250 MG then 1 po TABS qd x 4 days CIPRO 250 MG 1 tablet CIPRO 250 537425 CIPROFLOXACIN Inactive TAB by mouth MG TAB [...] HGBA1C - Chemistry sodium, serum 140 mmol/L 143-295 4888/06/03 potassium, serum 3.9 mmol/L 3.5-5.2 chloride, serum 105 mmol/L 98-107 carbon dioxide, venous blood 29.4 mmol/L 21.0-32.0 blood glucose 124 mg/dL 65-110 calcium, serum 8.9 mg/dL 8.5-10.1 urea nitrogen, blood 14 mg/dL 7-18 creatinine, serum 0.88 mg/dL 0.55-1.30 hemoglobin A1C, blood, as % of total hemoglobin 5.7 % 4.3-6.0 Lab Report: Chlamydia/GC APTIMA/[id number] - Lab chlamydia DNA probe NOT DETECTED NOT DETECTED Lab Report: Chlamydia/GC APTIMA/[id number] - Microbiology Neisseria gonorrhoeae DNA probe NOT DETECTED NOT DETECTED Lab Report: Lipid Panel - Chemistry cholesterol, serum 157 mg/dL 449-359 1158/08/22 triglyceride, serum, fasting 215 mg/dL 30-200 HDL [...] mg/dL Encounters Code Encounter Date Provider Facility CPT-86851 Level 3 Est. Patient Yury Benoit MD [facility] 17:20:07 CDT CPT-23170 Level 4 Est. Patient [facility] CUPOLA PATCHER [place] CPT-74243 Level 4 New Patient Yury Benoit MD [facility] 15:17:12 CDT CPT-44296 Level 3 Est. Patient [facility] - 13:37:46 CDT [place] CPT-92630 Level 4 Est. Patient [facility] - 10:01:06 CDT [place] CPT-39599 Level 3 Est. Patient [facility] 08:58:07 CDT REEL SLITTER CPT-85761 Level 3 Est. [facility] PLANNING CONSULTANT CPT-12370 Level 4 Est. Patient [facility] 17:29:53 CUPOLA PATCHER REEL SLITTER CPT-10467 Level 4 Est. Patient [facility] 09:51:54 CUPOLA PATCHER CPT-87422 Level 3 Est. Patient [facility] 18:59:38 CDT CPT-22523 Level [address] [facility] 14:42:12 CDT -[facility] CPT-53498 Level [address] [facility] 22:18:20 CDT -[facility] CPT-79397 Level [address] [facility] 16:46:04 CDT -[facility] CPT-59594 Level [address] [facility] 15:39:53 CDT -[facility] CPT-29421 Level 3 Est. Patient Maite Sanchez MD [facility] 13:33:34 CDT -RHC CPT-02667 Level 3 Est. Patient Joseph Pineda [facility] 11:37:08 CDT -RHC CPT-99041 Level 3 Est. Patient Joseph Pineda [facility] 17:13:29 CUPOLA PATCHER -[facility] CPT-60034 Level 3 Est. Patient Joseph Pineda [facility] 18:42:44 CDT CPT-72449 Level 3 Est. Patient Joseph Pineda [facility] 16:25:39 CDT CPT-44037 Level 3 Est. Patient Casey ARCHIBALD [facility] 09:52:45 CDT -RHC CPT-88714 Level 3 Est. Patient Joseph Pineda [facility] 11:03:29 CUPOLA PATCHER -[facility] CPT-50819 Level 3 Est. Patient Joseph Pineda [facility] 11:03:08 CUPOLA PATCHER -[facility] CPT-80482 Level 3 Est. Patient Joseph Edwin [facility] 14:33:31 CDT -RHC CPT-58821 Level 3 Est. Patient Joseph Edwin [facility] 17:05:02 CUPOLA PATCHER -[facility] CPT-85934 Level 3 Est. Patient Joseph Pineda [facility] 17:48:06 CUPOLA PATCHER -[facility] CPT-69693 Level 3 Est. Patient Joseph Edwin [facility] 14:59:22 CUPOLA PATCHER -[facility] CPT-26951 Level 3 Est. Patient Joseph Edwin [facility] - 21:45:56 CUPOLA PATCHER Jose [facility] CPT-39473 Level 3 Est. Patient Joseph Pineda [facility] 21:29:50 CDT -RHC CPT-93420 Level 3 Est. Patient Joseph Pineda [facility] 12:41:09 CDT -RHC Procedures Code Procedure Name Date Entry Date Standard Description CPT-70227 Wet Mount - LAB USE ONLY 12:39:03 CUPOLA PATCHER CPT-32944 Vaginal Culture - LAB USE ONLY 12:39:03 CUPOLA PATCHER CPT-18130 Urine Culture - LAB USE ONLY 11:52:44 CUPOLA PATCHER CPT-98372 UA w micro - LAB USE ONLY 11:52:44 CUPOLA PATCHER CPT-27662 Postop F/U Visit 12:08:35 CDT CPT-53389 Postop F/U Visit 18:20:10 CDT CPT-A4351 Coloplast Female Cath 09:37:10 CDT CPT-49170 Urine Dip (Floor Use Only) 15:17:13 CDT CPT-70626 Dil F ureth int 15:17:13 CDT CPT-94169 Venipuncture Draw Fee 09:19:08 CDT CPT-67797 Lipid - LAB USE ONLY 09:19:07 CDT CPT-JTINJ Asp/Joint Injection 09:26:49 CDT CPT-23200 Chest 2V Frontal and Lat 14:47:43 CDT CPT-JTINJ Asp/Joint Injection 09:51:53 CUPOLA PATCHER CPT-OV Office Visit 17:39:05 CDT CPT-OV Office Visit 15:19:50 CDT CPT-39815 Sono transvag pelvis non OB uterus ovaries cervix 18:04:34 CDT CPT-24211 Venipuncture Draw Fee 08:55:49 CUPOLA PATCHER
--- OUTSIDE RECORDS SUMMARY | 2016-11-20 13:53 | External Medical Summary | Clinical Summary ---
:1965 Author Organization [facility] Address [address] [place] [address] Phone Allergies, Adverse Reactions, Alerts Allergy Name [...] Routine gynecological 12/14 12/14 [place] gynecological examination CRIB CLERK examination Postmenopausal 627.1 Active Jillina Postmenopausal bleeding 12/14 12/14 [place] bleeding CRIB CLERK ABNORMAL VAGINAL ICD-626.9 Inactive Maite Sanchez BLEEDING PhD SCABIES ICD-133.0 Inactive Maite Sanchez PhD OT GENERAL ICD-V70.3 Inactive Maite Sanchez MEDICAL PhD EXAMINATION ADMIN PURPOSES OTHER ABNORMAL ICD-790.29 Inactive Maite Sanchez GLUCOSE PhD ACUTE BRONCHITIS ICD-466.0 Inactive Maite Sanchez PhD Medication List Medication Instructions Start Stop Generic NDC Status Provider Patient Date Date Name Instruction TRAMADOL / po TRAMADOL [id number] No Jillina Active HCL 50 MG tid with HCL Longer [place] TABS ES Active CRIB CLERK Tylenol prn pain VYVANSE 20 1 tablet LISDEXAMF 53175472064 No Jillina Active MG ORAL daily for ETAMINE Longer [place] CAPS binge DIMESYLAT Active CRIB CLERK eating E disorder METFORMIN 2 tablet METFORMIN 85604996785 Active Joseph W Active HCL 500 MG daily for HCL Farooq DO TB24 blood sugars LASIX 20 2 tablet FUROSEMID 05067520767 Active Joseph Pineda Active MG TAB by mouth E Farooq DO daily CELEBREX 1 tablet CELECOXIB 54557368793 Active Joseph W Active 200 MG by mouth Farooq DO CAPS daily with meals PREDNISONE 2 tablets PREDNISON 96039803141 No Joseph W Active 20 MG TAB today, E Longer Farooq DO then 1 Active tablet days 2-4 DIFLUCAN 1 tablet FLUCONAZO 48215026339 No Joseph W Active 100 MG TAB by mouth LE Longer Farooq DO daily x 3 Active days AMARYL 1 1 tablet GLIMEPIRI 84090384605 Active Joseph Pineda Active MG ORAL orally DE Farooq DO TABS twice daily DIFLUCAN 1 tablet FLUCONAZO 71642592250 No Joseph Pineda Active 100 MG by mouth LE Longer Farooq DO TABS every Active other day for 2 doses ZOFRAN 4 1 po q6hr ONDANSETR 25076995861 Active Bam Pineda Active MG TABS PRN ON HCL [place]ow Nausea PREDNISONE 2 tabs PREDNISON 79215067070 No Joseph Pineda Active 20 MG TAB daily for E Longer Farooq DO 3 days, 1 Active tab daily for 3 days, 1/2 tab daily for 2 days AMOXICILLI 2 po BID AMOXICILL 54801357459 No Maite C Active N 500 MG x 10 days IN Longer Madril CAPS Active PhD LISINOPRIL 1 tablet LISINOPRI 10019978662 No Maite C Active 20 MG TABS by mouth L Longer Madril daily Active PhD POTASSIUM 2 capsule POTASSIUM 76255600917 No Joseph Pineda Active CHLORIDE by mouth CHLORIDE Longer Farooq DO CR 10 MEQ daily Active CPCR SPIRONOLAC 1 tablet SPIRONOLA 56724526680 No Joseph W Active TONE 25 MG by mouth CTONE Longer Farooq DO TAB daily Active METFORMIN 1 tablet METFORMIN 26851124135 No Joseph W Active HCL 500 MG by mouth HCL Longer Farooq DO TABS twice Active daily AMARYL 1 1 tab GLIMEPIRI 19235555677 No Joseph W Active MG TABS twice DE Longer Farooq DO daily Active PHENTERMIN 1 po q am PHENTERMI 36038330008 No Joseph W Active E HCL 37.5 for wt. NE HCL Longer Farooq DO MG TABS loss Active PROMETHAZI 1 tab by PROMETHAZ 60339029466 No Joseph W Active NE HCL 25 mouth INE HCL Longer Farooq DO MG TABS every 6 Active hours as needed CIPROFLOXA Take one CIPROFLOX 11281434309 No Joseph W Active DELORES HCL (1) ACIN HCL Longer Farooq DO 500 MG tablet by Active TABS mouth twice a day ABILIFY 5 one p.o. ARIPIPRAZ 87709851571 No Joseph W Active MG TABS q. day OLE Longer Farooq DO Active HYDROCHLOR 2 tabs HYDROCHLO 50289074295 No Joseph W Active OTHIAZIDE every ROTHIAZID Longer Farooq DO 25 MG TABS morning E Active ABILIFY 2 1 po q hs ARIPIPRAZ 40383679823 No Joseph W Active MG TABS for major OLE Longer Farooq DO depressio Active n ADIPEX-P 1/2 tab PHENTERMI 44123709594 No Casey Active 37.5 MG po q am NE HCL Longer [place] CAPS for Active PA weight loss CIPRO 500 1 tablet CIPROFLOX 30781201551 No Casey Active MG TAB by mouth ACIN HCL Longer [place] twice Active PA daily NECON 1/35 1 po NORETHIND 23179859838 No Casey Active (28) 1-35 daily LINDA-ETH Longer Leonarda MG-MCG ESTRADIOL Active PA TABS TRAMADOL 1 po tid TRAMADOL 65540904762 No Casey Active HCL 50 MG with ES HCL Longer [place] TABS Tylenol Active PA FLUCONAZOL one p.o. FLUCONAZO 50435192142 No Casey Active E 100 MG q. day 2 LE Longer [place] TABS days Active PA POTASSIUM 1 capsule POTASSIUM 08341390625 No Casey Active CHLORIDE by mouth CHLORIDE Longer [place] CR 10 MEQ daily Active PA CPCR IMIPRAMINE Take 6 IMIPRAMIN 00847084057 Active Joseph Pineda Active HCL 50 MG tablets E HCL Farooq DO TABS by mouth at bedtime DIFLUCAN 1 tablet FLUCONAZO 65162585525 No Joseph W Active 100 MG TAB by mouth LE Longer Farooq DO daily Active METOPROLOL 1/2 tab METOPROLO 84106256314 Active Joseph W Active TARTRATE po bid L Farooq DO 25 MG TABS TARTRATE VERAPAMIL 2 po bid VERAPAMIL 71005386022 Active Joseph Pineda Active HCL CR 120 HCL Farooq DO MG TAB CR PERMETHRIN apply PERMETHRI 40924020342 No Joseph Pineda Active 5 % CREA neck to N Longer Farooq DO toes Active tonight and then rinse off in morning. repeat at 7 days SEROQUEL one p.o. QUETIAPIN 65285130568 No Joseph W Active XR 50 MG q. E Longer Farooq DO [id number] evening FUMARATE Active TRAMADOL 1-2 TRAMADOL 80432656589 No Joseph W Active HCL 50 MG tablets HCL Longer Farooq DO TABS every 6-8 Active hours as needed for pain ALPRAZOLAM one p.o. ALPRAZOLA 89607265610 Active Joseph W Active 3 MG q.h.s. M Farooq DO [id number] ALPRAZOLAM Take 1 ALPRAZOLA 88659619718 No Joseph W Active XR tablet by M Longer Farooq DO [id number] mouth at [id number] Active bedtime DIFLUCAN 1 tablet FLUCONAZO 46242725882 No Joseph W Active 100 MG TAB by mouth MAGNO Longer Farooq DO daily Active AMBIEN 10 1 tab by ZOLPIDEM 00362633825 Active Joseph W Active MG TAB mouth at TARTRATE Farooq DO bedtime as needed for sleep DIFLUCAN 100 1 tablet DIFLUCAN 256867 FLUCONAZOLE Inactive MG TAB by mouth 100 MG TAB daily ALPRAZOLAM Take 1 ALPRAZOLAM ALPRAZOLAM Inactive XR [id number] tablet by XR [id number] mouth at [id number] bedtime TRAMADOL HCL 1-2 TRAMADOL 272818 TRAMADOL HCL Inactive 50 MG TABS tablets HCL 50 MG every 6-8 TABS hours as needed for pain SEROQUEL XR one p.o. SEROQUEL XR QUETIAPINE Inactive 50 MG q. evening 50 MG FUMARATE [id number] PERMETHRIN 5 apply neck PERMETHRIN 310093 PERMETHRIN Inactive % CREA to toes 5 % CREA tonight and then rinse off in morning. repeat at 7 days DIFLUCAN 100 1 tablet DIFLUCAN 649288 FLUCONAZOLE Inactive MG TAB by mouth 100 MG TAB daily POTASSIUM 1 capsule POTASSIUM POTASSIUM Inactive CHLORIDE CR by mouth CHLORIDE CR CHLORIDE 10 MEQ CPCR daily 10 MEQ CPCR FLUCONAZOLE one p.o. FLUCONAZOLE 19760111 FLUCONAZOLE Inactive 100 MG TABS q. day 2 100 MG TABS days TRAMADOL HCL 1 po tid TRAMADOL 329029 TRAMADOL HCL Inactive 50 MG TABS with ES HCL 50 MG Tylenol TABS NECON 1/35 1 po daily NECON 1/35 NORETHINDRONE- Inactive (28) 1-35 (28) 1-35 ETH ESTRADIOL MG-MCG TABS MG-MCG TABS CIPRO 500 MG 1 tablet CIPRO 500 064411 CIPROFLOXACIN Inactive TAB by mouth MG TAB HCL twice daily ADIPEX-P 1/2 tab po ADIPEX-P 258990 PHENTERMINE Inactive 37.5 MG CAPS q am for 37.5 MG HCL weight CAPS loss ABILIFY 2 MG 1 po q hs ABILIFY 2 490477 ARIPIPRAZOLE Inactive TABS for major MG TABS depression HYDROCHLOROT 2 tabs HYDROCHLORO 025541 HYDROCHLOROTHI Inactive HIAZIDE 25 every THIAZIDE 25 AZIDE MG TABS morning MG TABS ABILIFY 5 MG one p.o. ABILIFY 5 907438 ARIPIPRAZOLE Inactive TABS q. day MG TABS CIPROFLOXACI Take one CIPROFLOXAC 577798 CIPROFLOXACIN Inactive N HCL 500 MG (1) tablet IN HCL 500 HCL TABS by mouth MG TABS twice a day PROMETHAZINE 1 tab by PROMETHAZIN 086990 PROMETHAZINE Inactive HCL 25 MG mouth E HCL 25 MG HCL TABS every 6 TABS hours as needed PHENTERMINE 1 po q am PHENTERMINE 380782 PHENTERMINE Inactive HCL 37.5 MG for wt. HCL 37.5 MG HCL TABS loss TABS AMARYL 1 MG 1 tab AMARYL 1 MG 515840 GLIMEPIRIDE Inactive TABS twice TABS daily METFORMIN 1 tablet METFORMIN 245299 METFORMIN HCL Inactive HCL 500 MG by mouth HCL 500 MG TABS twice TABS daily SPIRONOLACTO 1 tablet SPIRONOLACT 002914 SPIRONOLACTONE Inactive NE 25 MG TAB by mouth ONE 25 MG daily TAB POTASSIUM 2 capsule POTASSIUM POTASSIUM Inactive CHLORIDE CR by mouth CHLORIDE CR CHLORIDE 10 MEQ CPCR daily 10 MEQ CPCR LISINOPRIL 1 tablet LISINOPRIL 135791 LISINOPRIL Inactive 20 MG TABS by mouth 20 MG TABS daily DIFLUCAN 100 1 tablet DIFLUCAN 225565 FLUCONAZOLE Inactive MG TABS by mouth 100 MG TABS every other day for 2 doses DIFLUCAN 100 1 tablet DIFLUCAN 402760 FLUCONAZOLE Inactive MG TAB by mouth 100 MG TAB daily x 3 days PREDNISONE 2 tablets PREDNISONE 332236 PREDNISONE Inactive 20 MG TAB today, 20 MG TAB then 1 tablet days 2-4 VYVANSE 20 1 tablet VYVANSE 20 LISDEXAMFETAMI Inactive MG ORAL CAPS daily for MG ORAL NE DIMESYLATE binge CAPS eating disorder TRAMADOL HCL 1/2 po tid TRAMADOL 153308 TRAMADOL HCL Inactive 50 MG TABS with ES HCL 50 MG Tylenol TABS prn pain AMOXICILLIN 2 po BID x AMOXICILLIN 676500 AMOXICILLIN Inactive 500 MG CAPS 10 days 500 MG CAPS PREDNISONE 2 tabs PREDNISONE 108227 PREDNISONE Inactive 20 MG TAB daily for [...] Panel - Chemistry sodium, serum 137 mmol/L 822-581 5845/08/29 potassium, serum 4.1 mmol/L 3.5-5.2 chloride, serum 100 mmol/L 98-107 carbon dioxide, venous blood 31.1 mmol/L 21.0-32.0 blood glucose 138 mg/dL 65-110 calcium, serum 9.2 mg/dL 8.5-10.1 urea nitrogen, blood 9 mg/dL 7-18 creatinine, serum 0.80 mg/dL 0.60-1.30 Lab Report: CBC, Comp. Metabolic Panel, HGBA1C - Chemistry sodium, serum 140 mmol/L 240-614 3741/04/13 potassium, serum 3.9 mmol/L 3.5-5.2 chloride, serum [...] 219 10^3/MM^3 10*3/mm3 142-424 Lab Report: Chlamydia/GC APTIMA/[id number] - Lab chlamydia DNA probe NOT DETECTED NOT DETECTED Lab Report: Chlamydia/GC APTIMA/[id number] - Microbiology Neisseria gonorrhoeae DNA probe NOT [...] mg/g mg/g{creat} 0-29 sodium, serum 140 mmol/L 486-767 2873/07/21 potassium, serum 3.9 mmol/L 3.5-5.2 chloride, serum [...] 142-424 Encounters Code Encounter Date Provider Facility CPT-14832 Level 3 Est. Patient Joseph Pineda [facility] 14:42:12 CDT -[facility] CPT-91074 Level 3 Est. Patient Joseph Pineda [facility] 22:18:20 CDT -[facility] CPT-53112 Level 3 Est. Patient Joseph Pineda [facility] 16:46:04 CDT -[facility] CPT-03835 Level 3 Est. Patient Joseph Pineda [facility] 15:39:53 CDT -[facility] CPT-69170 Level 3 Est. Patient Maite Sanchez MD [facility] 13:33:34 CDT -[facility] CPT-40685 Level 3 Est. Patient Joseph Pineda [facility] 11:37:08 CDT -[facility] CPT-61719 Level 3 Est. Patient Joseph Pineda [facility] 17:13:29 WAXER OPERATOR -[facility] CPT-70945 Level 3 Est. Patient Joseph Pineda [facility] 18:42:44 CDT CPT-98060 Level 3 Est. Patient Joseph Edwin [facility] 16:25:39 CDT CPT-65292 Level 3 Est. Patient Casey Brower [facility] 09:52:45 CDT -[facility] CPT-29081 Level 3 Est. Patient Joseph Edwin [facility] 11:03:29 WAXER OPERATOR -[facility] CPT-22527 Level 3 Est. Patient Joseph Pineda [facility] 11:03:08 WAXER OPERATOR -[facility] CPT-72828 Level 3 Est. Patient Joseph Pineda [facility] 14:33:31 CDT -[facility] CPT-29597 Level 3 Est. Patient Joseph Pineda [facility] 17:05:02 WAXER OPERATOR -[facility] CPT-53672 Level 3 Est. Patient Joseph Edwin [facility] 17:48:06 WAXER OPERATOR -[facility] CPT-90831 Level 3 Est. Patient Joseph Pineda [facility] 14:59:22 WAXER OPERATOR -[facility] CPT-82818 Level 3 Est. Patient Joseph [facility] - 21:45:56 WAXER OPERATOR [facility] CPT-22786 Level 3 Est. Patient Joseph Pineda [facility] 21:29:50 [facility] CPT-05168 Level 3 Est. Patient Joseph Pineda [facility] 12:41:09 [facility] Procedures Code Procedure Name Date Entry Date Standard Description CPT-21064 Venipuncture Draw Fee 08:55:49 WAXER OPERATOR
--- OUTSIDE RECORDS SUMMARY | 2016-11-20 13:54 | External Medical Summary | Clinical Summary ---
:1965 Author Organization [facility] cube19 Address [address] [address] Phone Allergies, Adverse Reactions, Alerts Allergy Name Reaction Description Start Date Severity Status Provider NKDA Critical Active Indigo Yonickieum EMERGENCY MEDICAL TECHNICIAN BASIC NKDA Critical No Longer Indigo Yokum EMERGENCY MEDICAL TECHNICIAN BASIC Active NKDA Critical Inactive Adrianna Elder Conditions [...] Resolved Indigo Other malaise 05/24 07/02 Yokum EMERGENCY MEDICAL TECHNICIAN BASIC and fatigue SLEEP APNEA, 327.23 Active Joseph Pineda Obstructive OBSTRUCTIVE, 06/27 06/27 Farooq DO sleep apnea MILD (adult) (pediatric) OVERWEIGHT 278.02 Inactive Joseph Pineda Overweight 06/28 06/28 Farooq DO Obesity 278.00 Active Indigo Obesity, 06/28 10/18 Yokum EMERGENCY MEDICAL TECHNICIAN BASIC unspecified OTH GENERAL V70.3 Resolved Maite Gutierrez Other general MEDICAL Laura ONEAL medical EXAMINATION PhD examination for ADMIN PURPOSES administrative purposes OTHER ABNORMAL 790.29 Resolved Maite C Other abnormal GLUCOSE 05/20 Laura ONEAL glucose PhD ACUTE 466.0 Resolved Maite C Acute BRONCHITIS 09/02 Laura ONEAL bronchitis PhD DEPENDENT 782.3 Resolved Indigo Edema EDEMA, LEGS, 10/29 10/18 Yokum EMERGENCY MEDICAL TECHNICIAN BASIC BILATERAL HYPOKALEMIA, 276.8 Resolved Indigo Hypopotassemia MILD 10/29 07/02 Youm EMERGENCY MEDICAL TECHNICIAN BASIC Diabetes, Type 250.00 Inactive Joseph Pineda Diabetes 2 06/27 06/27 Farooq DO mellitus without mention of complication, type II or unspecified type, not stated as uncontrolled Diabetes 250.02 Resolved Indigo Diabetes mellitus, type 06/27 EMERGENCY MEDICAL TECHNICIAN BASIC mellitus II, without mention uncontrolled of complication, [...] Resolved Indigo Routine gynecological 12/14 07/02 Yo EMERGENCY MEDICAL TECHNICIAN BASIC gynecological examination examination Postmenopausal 627.1 Resolved Indigo Postmenopausal bleeding 12/14 EMERGENCY MEDICAL TECHNICIAN BASIC bleeding Screening for V76.51 Resolved Indigo Screening for malignant 12/26 07/02 Yokum EMERGENCY MEDICAL TECHNICIAN BASIC malignant neoplasms of neoplasms of colon colon Insomnia, 307.42 Active Indigo 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 EMERGENCY MEDICAL TECHNICIAN BASIC disorder of initiating or maintaining sleep Establish care V68.89 Resolved Indigo Encounters for or get 01/16 07/02 Yo EMERGENCY MEDICAL TECHNICIAN BASIC other specified acquainted administrative visit purpose Weakness, left 342.90 Resolved Indigo Hemiplegia, side of body 06/20 10/18 Yokum EMERGENCY MEDICAL TECHNICIAN BASIC unspecified, affecting unspecified side TIA 435.9 Active Indigo Unspecified 06/20 07/02 Yokum EMERGENCY MEDICAL TECHNICIAN BASIC transient cerebral ischemia Knee pain, 719.46 Active Indigo Pain in joint bilateral 06/20 10/18 Yokum EMERGENCY MEDICAL TECHNICIAN BASIC involving lower leg Bronchitis 490 Resolved Indigo Bronchitis, not 07/23 10/18 Yokum EMERGENCY MEDICAL TECHNICIAN BASIC specified as acute or chronic Diabetes 357.2 Active Maliheh Polyneuropathy mellitus, 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 Knee pain, 719.46 Active Indigo Pain in joint right 06/20 10/18 Yokum EMERGENCY MEDICAL TECHNICIAN BASIC involving lower leg Jesi 112.3 Active Indigo Candidiasis of intertrigo 10/09 10/18 Yokum EMERGENCY MEDICAL TECHNICIAN BASIC skin and nails Hyperlipidemia 272.4 Active Anne Other and 12/24 12/24 Neil unspecified RMA hyperlipidemia Incontinence, 788.33 Active Indigo Mixed mixed, 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 EMERGENCY MEDICAL TECHNICIAN BASIC incontinence urge/stress (female) (male) Female stress 625.6 Active Yury AnthonyCarlos Enrique Stress incontinence 01/03 01/03 Cy patel MD female ABNORMAL VAGINAL ICD-626.9 Inactive Maite Sanchez BLEEDING PhD SCABIES ICD-133.0 Inactive Maite Sanchez PhD FATIGUE ICD-780.79 Inactive Indigo Yokum EMERGENCY MEDICAL TECHNICIAN BASIC OTH GENERAL ICD-V70.3 Inactive Maite Sanchez MEDICAL PhD EXAMINATION ADMIN PURPOSES OTHER ABNORMAL ICD-790.29 Inactive Maite Sanchez GLUCOSE PhD ACUTE BRONCHITIS ICD-466.0 Inactive Maite Matt Sanchez PhD DEPENDENT EDEMA, ICD-782.3 Inactive Indigo Yokum LEGS, BILATERAL EMERGENCY MEDICAL TECHNICIAN BASIC HYPOKALEMIA, MILD ICD-276.8 Inactive Indigo Yokum EMERGENCY MEDICAL TECHNICIAN BASIC Diabetes mellitus, ICD-250.02 Inactive Indigo Yokum type II, EMERGENCY MEDICAL TECHNICIAN BASIC uncontrolled Sinusitis, ICD-461.1 Inactive Ismael Coyne frontal, acute Amandeep ONEAL Laryngitis, acute ICD-464.00 Inactive Ismael Coyne Amandeep ONEAL Routine ICD-V72.31 Inactive Indigo Yokum gynecological EMERGENCY MEDICAL TECHNICIAN BASIC examination Postmenopausal ICD-627.1 Inactive Indigo Yokum 2015 bleeding EMERGENCY MEDICAL TECHNICIAN BASIC Screening for ICD-V76.51 Inactive Indigo Yokum 2015 malignant EMERGENCY MEDICAL TECHNICIAN BASIC neoplasms of colon Establish care or ICD-V68.89 Inactive Indigo Yokum get acquainted EMERGENCY MEDICAL TECHNICIAN BASIC visit Weakness, left ICD-342.90 Inactive Indigo Yokum side of body EMERGENCY MEDICAL TECHNICIAN BASIC Bronchitis ICD-490 Inactive Indigo Yokum EMERGENCY MEDICAL TECHNICIAN BASIC Medication List Medication Instructions Start Stop Generic NDC Status Provider Patient Date Date Name Instruction METFORMIN 2 tablets METFORMIN 35456687338 No Indigo Active HCL 500 MG by mouth HCL Longer Yokum TB24 twice Active EMERGENCY MEDICAL TECHNICIAN BASIC daily AMARYL 1 MG 1 tablet GLIMEPIRID 45711836712 No Indigo Active ORAL TABS orally E Longer Yokum twice Active EMERGENCY MEDICAL TECHNICIAN BASIC daily NYSTATIN apply to NYSTATIN 99146196082 Active Indigo Active 845378 rash TID Yokum UNIT/GM PRN EMERGENCY MEDICAL TECHNICIAN BASIC CREA TROKENDI XR 2 tab TOPIRAMATE 23177421138 Active Malihe Active 100 MG ORAL daily h [id number] Ziglar i ACADEMIC TUTOR METOPROLOL 1 tab po METOPROLOL 76762199195 Active Indigo Active TARTRATE 25 bid TARTRATE Yokum MG TABS EMERGENCY MEDICAL TECHNICIAN BASIC AZITHROMYCI 2 po qd x AZITHROMYC 07675178131 No Jillin Active N 250 MG 1 day, IN Longer a TABS then 1 po Active Frazel qd x 4 l EMERGENCY MEDICAL TECHNICIAN BASIC days PREDNISONE 2 pills PREDNISONE 47791334961 No Jillin Active 20 MG TAB daily x 4 Longer a days Active Frazel l EMERGENCY MEDICAL TECHNICIAN BASIC PIOGLITAZON take one PIOGLITAZO 41998925233 Active Malihe Active E HCL 30 MG a day NE HCL h ORAL TABS Ziglar i ACADEMIC TUTOR JANUVIA 100 1 tablet SITAGLIPTI 62446237315 No Indigo Active MG TABS by mouth N Longer Yokum daily PHOSPHATE Active EMERGENCY MEDICAL TECHNICIAN BASIC ATORVASTATI 1 pill by ATORVASTAT 10637652112 Active Indigo Active N CALCIUM mouth IN CALCIUM Yokum 10 MG TABS nightly, EMERGENCY MEDICAL TECHNICIAN BASIC for cholester ol ASPIRIN 81 1 po qd ASPIRIN 52674790824 Active Indigo Active MG ORAL Yokum TABS EMERGENCY MEDICAL TECHNICIAN BASIC NITROFURANT One NITROFURAN 60358234348 No Indigo Active OIN MONOHYD capsule TOIN Longer Yokum MACRO 100 BID for MONOHYD Active EMERGENCY MEDICAL TECHNICIAN BASIC MG CAPS UTI MACRO TRAMADOL 1/2 po TRAMADOL 97102788344 No Jillin Active HCL 50 MG tid with HCL Longer a TABS ES Active Frazel Tylenol l EMERGENCY MEDICAL TECHNICIAN BASIC prn pain VYVANSE 20 1 tablet LISDEXAMFE 45502904258 No Jillin Active MG ORAL daily for TAMINE Longer a CAPS binge DIMESYLATE Active Frazel eating l EMERGENCY MEDICAL TECHNICIAN BASIC disorder LASIX 20 MG 2 tablet FUROSEMIDE 58234546122 Active Indigo Active TAB by mouth Yokum daily EMERGENCY MEDICAL TECHNICIAN BASIC CELEBREX 1 tablet CELECOXIB 41488148636 Active Indigo Active 200 MG CAPS by mouth Yokum daily EMERGENCY MEDICAL TECHNICIAN BASIC with meals PREDNISONE 2 tablets PREDNISONE 25969238294 No Joseph Active 20 MG TAB today, Longer W Farooq then 1 Active DO tablet days 2-4 DIFLUCAN 1 tablet FLUCONAZOL 30451089516 No Joseph Active 100 MG TAB by mouth E Longer W Farooq daily x 3 Active DO days DIFLUCAN 1 tablet FLUCONAZOL 70437674732 No Joseph Active 100 MG TABS by mouth E Longer W Farooq every Active DO other day for 2 doses ZOFRAN 4 MG 1 po q6hr ONDANSETRO 20756298467 Active Joseph Active TABS PRN N HCL W Farooq Nausea DO PREDNISONE 2 tabs PREDNISONE 26981061865 No Joseph Active 20 MG TAB daily for Longer W Farooq 3 days, 1 Active DO tab daily for 3 days, 1/2 tab daily for 2 days AMOXICILLIN 2 po BID AMOXICILLI 91483701092 No Maite C Active 500 MG CAPS x 10 days N Longer Madril Active PhD LISINOPRIL 1 tablet LISINOPRIL 41897733123 No Maite C Active 20 MG TABS by mouth Longer Madril daily Active PhD POTASSIUM 2 capsule POTASSIUM 17293776497 No Joseph Active CHLORIDE CR by mouth CHLORIDE Longer W Farooq 10 MEQ CPCR daily Active DO SPIRONOLACT 1 tablet SPIRONOLAC 87175762100 No Joseph Active ONE 25 MG by mouth TONE Longer W Farooq TAB daily Active DO METFORMIN 1 tablet METFORMIN 50261312427 No Joseph Active HCL 500 MG by mouth HCL Longer W Farooq TABS twice Active DO daily AMARYL 1 MG 1 tab GLIMEPIRID 66901056694 No Joseph Active TABS twice E Longer W Farooq daily Active DO PHENTERMINE 1 po q am PHENTERMIN 10316934047 No Joseph Active HCL 37.5 MG for wt. E HCL Longer W Farooq TABS loss Active DO PROMETHAZIN 1 tab by PROMETHAZI 71453536361 No Joseph Active E HCL 25 MG mouth NE HCL Longer W Farooq TABS every 6 Active DO hours as needed CIPROFLOXAC Take one CIPROFLOXA 29133494776 No Joseph Active IN HCL 500 (1) DELORES HCL Longer W Farooq MG TABS tablet by Active DO mouth twice a day ABILIFY 5 one p.o. ARIPIPRAZO 12970178564 No Joseph Active MG TABS q. day LE Longer W Farooq Active DO HYDROCHLORO 2 tabs HYDROCHLOR 84932061259 No Joseph Active THIAZIDE 25 every OTHIAZIDE Longer W Farooq MG TABS morning Active DO ABILIFY 2 1 po q hs ARIPIPRAZO 73374807595 No Joseph Active MG TABS for major LE Longer W Farooq depressio Active DO n ADIPEX-P 1/2 tab PHENTERMIN 41253048728 No Casey Active 37.5 MG po q am E HCL Longer [place] CAPS for Active PA weight loss CIPRO 500 1 tablet CIPROFLOXA 68056491129 No Casey Active MG TAB by mouth DELORES HCL Longer Leonarda twice Active PA daily NECON 1/35 1 po NORETHINDR 99367417482 No Casey Active (28) 1-35 daily ONE-ETH Longer Leonarda MG-MCG TABS ESTRADIOL Active PA TRAMADOL 1 po tid TRAMADOL 21570146740 No Casey Active HCL 50 MG with ES HCL Longer Leonarda TABS Tylenol Active PA FLUCONAZOLE one p.o. FLUCONAZOL 17846068944 No Casey Active 100 MG TABS q. day 2 E Longer Leonarda days Active PA POTASSIUM 1 capsule POTASSIUM 45068813217 No Casey Active CHLORIDE CR by mouth CHLORIDE Longer 10 MEQ CPCR daily Active PA IMIPRAMINE Take 6 IMIPRAMINE 13557708665 Active Indigo Active HCL 50 MG tablets HCL Yokum TABS by mouth EMERGENCY MEDICAL TECHNICIAN BASIC at bedtime DIFLUCAN 1 tablet FLUCONAZOL 31004273985 No Joseph Active 100 MG TAB by mouth E Longer W Farooq daily Active DO VERAPAMIL 2 po bid VERAPAMIL 15593119902 Active Indigo Active HCL CR 120 HCL Yokum MG TAB CR EMERGENCY MEDICAL TECHNICIAN BASIC PERMETHRIN apply PERMETHRIN 39160429037 No Joseph Active 5 % CREA neck to Longer W Farooq toes Active DO tonight and then rinse off in morning. repeat at 7 days SEROQUEL XR one p.o. QUETIAPINE 07585224757 No Joseph Active 50 MG q. FUMARATE Longer W Farooq [id number] evening Active DO TRAMADOL 1-2 TRAMADOL 99792499802 No Joseph Active HCL 50 MG tablets HCL Longer W Farooq TABS every 6-8 Active DO hours as needed for pain ALPRAZOLAM one p.o. ALPRAZOLAM 24787698761 Active Indigo Active 3 MG q.h.s. Yokum [id number] EMERGENCY MEDICAL TECHNICIAN BASIC ALPRAZOLAM Take 1 ALPRAZOLAM 16763693896 No Joseph Active XR tablet by [id number] Longer W Farooq [id number] mouth at Active DO bedtime DIFLUCAN 1 tablet FLUCONAZOL 32465583245 No Joseph Active 100 MG TAB by mouth E Longer W Farooq daily Active DO AMBIEN 10 1 tab by ZOLPIDEM 84038074367 Active Indigo Active MG TAB mouth at TARTRATE Yokum bedtime EMERGENCY MEDICAL TECHNICIAN BASIC as needed for sleep DIFLUCAN 100 1 tablet DIFLUCAN 032075 FLUCONAZOLE Inactive MG TAB by mouth 100 MG TAB daily ALPRAZOLAM Take 1 ALPRAZOLAM ALPRAZOLAM Inactive XR [id number] tablet by XR [id number] mouth at [id number] bedtime TRAMADOL HCL 1-2 TRAMADOL 148450 TRAMADOL HCL Inactive 50 MG TABS tablets HCL 50 MG every 6-8 TABS hours as needed for pain SEROQUEL XR one p.o. SEROQUEL XR QUETIAPINE Inactive 50 MG q. 50 MG FUMARATE [id number] evening [id number] PERMETHRIN 5 apply PERMETHRIN 351882 PERMETHRIN Inactive % CREA neck to 5 % CREA toes tonight and then rinse off in morning. repeat at 7 days DIFLUCAN 100 1 tablet DIFLUCAN 032964 FLUCONAZOLE Inactive MG TAB by mouth 100 MG TAB daily POTASSIUM 1 capsule POTASSIUM POTASSIUM Inactive CHLORIDE CR by mouth CHLORIDE CR CHLORIDE 10 MEQ CPCR daily 10 MEQ CPCR FLUCONAZOLE one p.o. FLUCONAZOLE 666529 FLUCONAZOLE Inactive 100 MG TABS q. day 2 100 MG TABS days TRAMADOL HCL 1 po tid TRAMADOL 748206 TRAMADOL HCL Inactive 50 MG TABS with ES HCL 50 MG Tylenol TABS NECON 1/35 1 po NECON 1/35 NORETHINDRONE- Inactive (28) 1-35 daily (28) 1-35 ETH ESTRADIOL MG-MCG TABS MG-MCG TABS CIPRO 500 MG 1 tablet CIPRO 500 518223 CIPROFLOXACIN Inactive TAB by mouth MG TAB HCL twice daily ADIPEX-P 1/2 tab ADIPEX-P 674106 PHENTERMINE Inactive 37.5 MG CAPS po q am 37.5 MG HCL for CAPS weight loss ABILIFY 2 MG 1 po q hs ABILIFY 2 125249 ARIPIPRAZOLE Inactive TABS for major MG TABS depressio n HYDROCHLOROT 2 tabs HYDROCHLORO 145425 HYDROCHLOROTHI Inactive HIAZIDE 25 every THIAZIDE 25 AZIDE MG TABS morning MG TABS ABILIFY 5 MG one p.o. ABILIFY 5 355192 ARIPIPRAZOLE Inactive TABS q. day MG TABS CIPROFLOXACI Take one CIPROFLOXAC 889246 CIPROFLOXACIN Inactive N HCL 500 MG (1) IN HCL 500 HCL TABS tablet by MG TABS mouth twice a day PROMETHAZINE 1 tab by PROMETHAZIN 376830 PROMETHAZINE Inactive HCL 25 MG mouth E HCL 25 MG HCL TABS every 6 TABS hours as needed PHENTERMINE 1 po q am PHENTERMINE 686315 PHENTERMINE Inactive HCL 37.5 MG for wt. HCL 37.5 MG HCL TABS loss TABS AMARYL 1 MG 1 tab AMARYL 1 MG 428063 GLIMEPIRIDE Inactive TABS twice TABS daily METFORMIN 1 tablet METFORMIN 170931 METFORMIN HCL Inactive HCL 500 MG by mouth HCL 500 MG TABS twice TABS daily SPIRONOLACTO 1 tablet SPIRONOLACT 557461 SPIRONOLACTONE Inactive NE 25 MG TAB by mouth ONE 25 MG daily TAB POTASSIUM 2 capsule POTASSIUM POTASSIUM Inactive CHLORIDE CR by mouth CHLORIDE CR CHLORIDE 10 MEQ CPCR daily 10 MEQ CPCR LISINOPRIL 1 tablet LISINOPRIL 414047 LISINOPRIL Inactive 20 MG TABS by mouth 20 MG TABS daily DIFLUCAN 100 1 tablet DIFLUCAN 19760111 FLUCONAZOLE Inactive MG TABS by mouth 100 MG TABS every other day for 2 doses DIFLUCAN 100 1 tablet DIFLUCAN 028018 FLUCONAZOLE Inactive MG TAB by mouth 100 MG TAB daily x 3 days PREDNISONE 2 tablets PREDNISONE 525843 PREDNISONE Inactive 20 MG TAB today, 20 MG TAB then 1 tablet days 2-4 VYVANSE 20 1 tablet VYVANSE 20 LISDEXAMFETAMI Inactive MG ORAL CAPS daily for MG ORAL NE DIMESYLATE binge CAPS eating disorder TRAMADOL HCL 1/2 po TRAMADOL 289320 TRAMADOL HCL Inactive 50 MG TABS tid with HCL 50 MG ES TABS Tylenol prn pain JANUVIA 100 1 tablet JANUVIA 100 SITAGLIPTIN Inactive MG TABS by mouth MG TABS PHOSPHATE daily AMARYL 1 MG 1 tablet AMARYL 1 MG 343526 GLIMEPIRIDE Inactive ORAL TABS orally ORAL TABS twice daily METFORMIN 2 tablets METFORMIN METFORMIN HCL Inactive HCL 500 MG by mouth HCL 500 MG TB24 twice TB24 daily AMOXICILLIN 2 po BID AMOXICILLIN 685180 AMOXICILLIN Inactive 500 MG CAPS x 10 days 500 MG CAPS PREDNISONE 2 tabs PREDNISONE 507377 PREDNISONE Inactive 20 MG TAB daily for 20 MG TAB 3 days, 1 tab daily for 3 days, 1/2 tab daily for 2 days NITROFURANTO One NITROFURANT 4540073 NITROFURANTOIN Inactive IN MONOHYD capsule OIN MONOHYD MONOHYD MACRO MACRO 100 MG BID for MACRO 100 CAPS UTI MG CAPS PREDNISONE 2 pills PREDNISONE 360324 PREDNISONE Inactive 20 MG TAB daily x 4 20 MG TAB days AZITHROMYCIN 2 po qd x AZITHROMYCI 5685837 AZITHROMYCIN Inactive 250 MG TABS 1 day, [...] HGBA1C - Chemistry sodium, serum 140 mmol/L 694-452 8575/06/03 potassium, serum 3.9 mmol/L 3.5-5.2 chloride, serum [...] Panel - Chemistry sodium, serum 136 mmol/L 748-577 4974/01/04 carbon dioxide, venous blood 27.0 mmol/L 21.0-32.0 potassium, serum 4.6 mmol/L 3.5-5.2 chloride, serum 98 mmol/L 98-107 blood glucose 174 mg/dL 65-110 urea nitrogen, blood 12 mg/dL 7-18 creatinine, serum 0.78 mg/dL 0.55-1.30 alanine aminotransferase (SGPT), serum 65 U/L 12-78 aspartate aminotransferase (SGOT), serum 34 U/L 15-37 calcium, serum 8.9 mg/dL 8.5-10.1 bilirubin, serum, total 0.40 mg/dL 0.00-1.00 cholesterol, serum 219 mg/dL 481-439 9575/01/04 triglyceride, serum, fasting 214 mg/dL 30-200 HDL cholesterol, serum 39 mg/dL 32-96 LDL cholesterol, serum 137 mg/dL 0-130 Lab Report: Lipid Panel - Chemistry cholesterol, serum 157 mg/dL 918-568 4020/08/22 triglyceride, serum, fasting 215 mg/dL 30-200 HDL [...] mg/dL Encounters Code Encounter Date Provider Facility CPT-89026 Level 4 New Patient Yury Benoit MD [facility] 15:17:12 CDT CPT-63563 Level 3 Est. Patient [facility] - 13:37:46 CDT [place] CPT-95715 Level 4 Est. Patient [facility] - 10:01:06 CDT [place] CPT-91838 Level 3 Est. Patient [facility] 08:58:07 CDT ACADEMIC TUTOR CPT-18950 Level 3 Est. Patient Faby Marino [facility] 14:40:56 CDT [facility] CPT-50170 Level 4 Est. Patient [facility] 17:29:53 WORSHIP PASTOR ACADEMIC TUTOR CPT-90039 Level 4 Est. Patient [facility] 09:51:54 WORSHIP PASTOR CPT-86731 Level 3 Est. Patient Indigo Sexton ALEJANDRO [facility] 18:59:38 CDT CPT-76458 Level 3 Est. Patient [facility] 14:42:12 CDT -[facility] CPT-23995 Level 3 Est. Patient Joseph Pineda [facility] 22:18:20 CDT -[facility] CPT-58115 Level 3 Est. Patient [facility] 16:46:04 CDT -[facility] CPT-38084 Level 3 Est. Patient [facility] 15:39:53 CDT -[facility] CPT-20242 Level 3 Est. Patient Maite Sanchez MD [facility] 13:33:34 CDT -[facility] CPT-64255 Level 3 Est. Patient [facility] 11:37:08 CDT -[facility] CPT-39813 Level 3 Est. Patient [facility] 17:13:29 WORSHIP PASTOR -[facility]HC CPT-71228 Level 3 Est. Patient [facility] 18:42:44 CDT CPT-64146 Level 3 Est. Patient [facility] 16:25:39 CDT CPT-46054 Level 3 Est. Patient Casey Brower [facility] 09:52:45 CDT -RHC CPT-10296 Level 3 Est. Patient [facility] 11:03:29 WORSHIP PASTOR -RHC CPT-34715 Level 3 Est. Patient [facility] 11:03:08 WORSHIP PASTOR -RHC CPT-06963 Level 3 Est. Patient [facility] 14:33:31 CDT -RHC CPT-59228 Level 3 Est. Patient [facility] 17:05:02 WORSHIP PASTOR -RHC CPT-32599 Level 3 Est. Patient [facility] 17:48:06 WORSHIP PASTOR -RHC CPT-66814 Level 3 Est. Patient Joseph Pineda [facility] 14:59:22 WORSHIP PASTOR -RHC CPT-38641 Level 3 Est. Patient Joseph Pineda [facility] - 21:45:56 WORSHIP PASTOR [place] [facility] CPT-09254 Level 3 Est. Patient Joseph Pineda [facility] 21:29:50 CDT -RHC CPT-94466 Level 3 Est. Patient Joseph Pineda [facility] 12:41:09 CDT -RHC Procedures Code Procedure Name Date Entry Date Standard Description CPT-17269 Postop F/U Visit 12:08:35 CDT CPT-03246 Postop F/U Visit 18:20:10 CDT CPT-A4351 [facility] Female Cath 09:37:10 CDT CPT-99613 Urine Dip (Floor Use Only) 15:17:13 CDT CPT-44696 Dil F ureth int 15:17:13 CDT CPT-62991 Venipuncture Draw Fee 09:19:08 CDT CPT-89616 Lipid - LAB USE ONLY 09:19:07 CDT CPT-JTINJ Asp/Joint Injection 09:26:49 CDT CPT-98681 Chest 2V Frontal and Lat 14:47:43 CDT CPT-JTINJ Asp/Joint Injection 09:51:53 WORSHIP PASTOR CPT-OV Office Visit 17:39:05 CDT CPT-OV Office Visit 15:19:50 CDT CPT-65076 Sono transvag pelvis non OB uterus ovaries cervix 18:04:34 CDT CPT-83699 Venipuncture Draw Fee 08:55:49 WORSHIP PASTOR
--- OUTSIDE RECORDS SUMMARY | 2016-11-20 13:55 | External Medical Summary | Clinical Summary ---
:1965 Author Organization [email or web address] Address [address] [address] Phone Allergies, Adverse Reactions, Alerts Allergy Name Reaction Description Start Date Severity Status Provider VERSED States jsut about Critical Active Gloria Saavedra ROD MILL TENDER killed her NKDA Critical Active Indigo Yokum CARDIAC MONITOR TECHNICIAN NKDA Critical No Longer Indigo Yokum CARDIAC MONITOR TECHNICIAN Active NKDA Critical Inactive Adrianna Elder [...] Resolved Indigo Other malaise 05/24 07/02 Yokum CARDIAC MONITOR TECHNICIAN and fatigue SLEEP APNEA, 327.23 Active Joseph Pineda Obstructive OBSTRUCTIVE, 06/27 06/27 Farooq DO sleep apnea MILD (adult) (pediatric) OVERWEIGHT 278.02 Inactive Joseph Pineda Overweight 06/28 06/28 Farooq DO Obesity 278.00 Active Indigo Obesity, 06/28 10/18 Yokum CARDIAC MONITOR TECHNICIAN unspecified OTH GENERAL V70.3 Resolved Maite Gutierrez Other general MEDICAL Laura ONEAL medical EXAMINATION PhD examination for ADMIN administrative PURPOSES purposes OTHER 790.29 Resolved Maite C Other abnormal ABNORMAL 05/20 Laura ONEAL glucose GLUCOSE PhD ACUTE 466.0 Resolved Maite Gutierrez Acute bronchitis BRONCHITIS 09/02 Laura ONEAL PhD DEPENDENT 782.3 Resolved Indigo Edema EDEMA, LEGS, 10/29 10/18 Yokum CARDIAC MONITOR TECHNICIAN BILATERAL HYPOKALEMIA, 276.8 Resolved Indigo Hypopotassemia MILD 10/29 07/02 Yokum CARDIAC MONITOR TECHNICIAN Diabetes, 250.00 Inactive Joseph Pineda Diabetes Type 2 06/27 06/27 Farooq DO mellitus without mention of complication, type II or unspecified type, not stated as uncontrolled Diabetes 250.02 Resolved Indigo Diabetes mellitus, 06/27 10/18 Yokum CARDIAC MONITOR TECHNICIAN mellitus without type II, mention of [...] Resolved Indigo Routine gynecological 12/14 07/02 Yokum CARDIAC MONITOR TECHNICIAN gynecological examination examination Postmenopausa 627.1 Resolved Indigo Postmenopausal l bleeding 12/14 07/02 Yokum CARDIAC MONITOR TECHNICIAN bleeding Screening for V76.51 Resolved Indigo Screening for malignant 12/26 07/02 Yokum CARDIAC MONITOR TECHNICIAN malignant neoplasms of neoplasms of colon colon Insomnia, 307.42 Active Indigo 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 CARDIAC MONITOR TECHNICIAN disorder of initiating or maintaining sleep Establish V68.89 Resolved Indigo Encounters for care or get 01/16 07/02 Yokum CARDIAC MONITOR TECHNICIAN other specified acquainted administrative visit purpose Weakness, 342.90 Resolved Indigo Hemiplegia, left side of 06/20 10/18 Yokum CARDIAC MONITOR TECHNICIAN unspecified, body affecting unspecified side TIA 435.9 Active Indigo Unspecified 06/20 07/02 Yokum CARDIAC MONITOR TECHNICIAN transient cerebral ischemia Knee pain, 719.46 Active Indigo Pain in joint bilateral 06/20 10/18 Yokum CARDIAC MONITOR TECHNICIAN involving lower leg Bronchitis 490 Resolved Indigo Bronchitis, not 07/23 10/18 Yokum CARDIAC MONITOR TECHNICIAN specified as acute or chronic Diabetes 357.2 Active Maliheh Polyneuropathy mellitus, 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 SURGICAL SERVICES ASSISTANT 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 y Knee pain, 719.46 Active Indigo Pain in joint right 06/20 10/18 Yokum CARDIAC MONITOR TECHNICIAN involving lower leg Jesi 112.3 Active Indigo Candidiasis of intertrigo 10/09 10/18 Yokum CARDIAC MONITOR TECHNICIAN skin and nails Hyperlipidemi 272.4 Active Anne Other and a 12/24 12/24 Neil unspecified RMA hyperlipidemia Incontinence, 788.33 Active Indigo Mixed mixed, 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 CARDIAC MONITOR TECHNICIAN incontinence urge/stress (female) (male) Female stress 625.6 Active Yury Monaco Stress incontinence 01/03 01/03 Cy patel MD female Vaginal odor 623.8 Active Gloria Other specified 05/28 05/28 Naff ROD MILL TENDER noninflammatory disorders of vagina Urinary tract 599.0 Active Indigo Urinary tract infection 05/28 05/28 Yokum CARDIAC MONITOR TECHNICIAN infection, site not specified ABNORMAL VAGINAL ICD-626.9 Inactive Maite Sanchez BLEEDING PhD SCABIES ICD-133.0 Inactive Maite Sanchez PhD FATIGUE ICD-780.79 Inactive Indigo Yokum CARDIAC MONITOR TECHNICIAN OTH GENERAL ICD-V70.3 Inactive Maite Sanchez MEDICAL MD PhD EXAMINATION ADMIN PURPOSES OTHER ABNORMAL ICD-790.29 Inactive Maite Sanchez GLUCOSE PhD ACUTE BRONCHITIS ICD-466.0 Inactive Maite Sanchez PhD DEPENDENT EDEMA, ICD-782.3 Inactive Indigo Yokum LEGS, BILATERAL CARDIAC MONITOR TECHNICIAN HYPOKALEMIA, MILD ICD-276.8 Inactive Indigo Yokum CARDIAC MONITOR TECHNICIAN Diabetes mellitus, ICD-250.02 Inactive Indigo Yokum type II, CARDIAC MONITOR TECHNICIAN uncontrolled Sinusitis, ICD-461.1 Inactive Ismael Coyne frontal, acute Amandeep ONEAL Laryngitis, acute ICD-464.00 Inactive Ismael Coyne Amandeep ONEAL Routine ICD-V72.31 Inactive Indigo Yokum gynecological CARDIAC MONITOR TECHNICIAN examination Postmenopausal ICD-627.1 Inactive Indigo Yokum 2015 bleeding CARDIAC MONITOR TECHNICIAN Screening for ICD-V76.51 Inactive Indigo Yokum 2015 malignant CARDIAC MONITOR TECHNICIAN neoplasms of colon Establish care or ICD-V68.89 Inactive Indigo Yokum get acquainted CARDIAC MONITOR TECHNICIAN visit Weakness, left ICD-342.90 Inactive Indigo Yokum side of body CARDIAC MONITOR TECHNICIAN Bronchitis ICD-490 Inactive Indigo Yokum CARDIAC MONITOR TECHNICIAN Medication List Medication Instructions Start Stop Generic NDC Status Provider Patient Date Date Name Instruction VESICARE 5 1 tablet SOLIFENACIN [id number] Active J Carlos Enrique Active MG TABS daily SUCCINATE Cy ONEAL CIPRO 250 MG 1 tablet 2 CIPROFLOXACIN 99060940001 Active Indigo Active TAB by mouth 0 HCL Yokum twice 1 CARDIAC MONITOR TECHNICIAN daily 7 / 0 7 METFORMIN 2 tablets 2 METFORMIN HCL 83495187582 No Indigo Active HCL 500 MG by mouth 0 Longer Yokum TB24 twice 1 Active CARDIAC MONITOR TECHNICIAN daily 2 AMARYL 1 MG 1 tablet 2 GLIMEPIRIDE 17878115353 No Indigo Active ORAL TABS orally 0 Longer Yokum twice 1 Active CARDIAC MONITOR TECHNICIAN daily 2 NYSTATIN apply to NYSTATIN 78313052099 Active Indigo Active 794535 rash TID Yokum UNIT/GM CREA PRN CARDIAC MONITOR TECHNICIAN TROKENDI XR 2 tab TOPIRAMATE 97558382837 Active Maliheh Active 100 MG ORAL daily Ziglari [id number] SURGICAL SERVICES ASSISTANT METOPROLOL 1 tab po METOPROLOL 84492079867 Active Indigo Active TARTRATE 25 bid TARTRATE Yokum MG TABS CARDIAC MONITOR TECHNICIAN AZITHROMYCIN 2 po qd x 2 AZITHROMYCIN 68858825303 No Jillina Active 250 MG TABS 1 day, 0 Longer Frazell then 1 po 1 Active CARDIAC MONITOR TECHNICIAN qd x 4 6 days / 0 3 / 2 6 PREDNISONE 2 pills 2 PREDNISONE 78486267656 No Jillina Active 20 MG TAB daily x 4 0 Longer Frazell days 1 Active CARDIAC MONITOR TECHNICIAN 6 / 0 3 / 2 5 PIOGLITAZONE take one a PIOGLITAZONE 19290920577 Active Maliheh Active HCL 30 MG day HCL Ziglari ORAL TABS SURGICAL SERVICES ASSISTANT JANUVIA 100 1 tablet 2 SITAGLIPTIN 18845865742 No Indigo Active MG TABS by mouth 0 PHOSPHATE Longer Yokum daily 1 Active CARDIAC MONITOR TECHNICIAN 6 / 0 / 1 6 ATORVASTATIN 1 pill by ATORVASTATIN 68989343337 Active Indigo Active CALCIUM 10 mouth CALCIUM Yokum MG TABS nightly, CARDIAC MONITOR TECHNICIAN for cholestero l ASPIRIN 81 1 po qd ASPIRIN 93732853246 Active Indigo Active MG ORAL TABS Yokum CARDIAC MONITOR TECHNICIAN NITROFURANTO One 2 NITROFURANTOIN 69058634060 No Indigo Active IN MONOHYD capsule 0 MONOHYD MACRO Longer Yokum MACRO 100 MG BID for 1 Active CARDIAC MONITOR TECHNICIAN CAPS UTI 6 / 0 2 / 1 3 TRAMADOL HCL 1/2 po tid 2 TRAMADOL HCL 33513155255 No Jillina Active 50 MG TABS with ES 0 Longer Frazell Tylenol 1 Active CARDIAC MONITOR TECHNICIAN prn pain 5 / 0 2 VYVANSE 20 1 tablet 2 LISDEXAMFETAMIN 06087876248 No Jillina Active MG ORAL CAPS daily for 0 E DIMESYLATE Longer Frazell binge 1 Active CARDIAC MONITOR TECHNICIAN eating 5 disorder / 0 2 LASIX 20 MG 2 tablet FUROSEMIDE 89991212303 Active Indigo Active TAB by mouth Yokum daily CARDIAC MONITOR TECHNICIAN CELEBREX 200 1 tablet CELECOXIB 72203246693 Active Indigo Active MG CAPS by mouth Yokum daily with CARDIAC MONITOR TECHNICIAN meals PREDNISONE 2 tablets 2 PREDNISONE 95192367268 No Joseph W Active 20 MG TAB today, 0 Longer Farooq DO then 1 1 Active tablet 5 days 2-4 / 0 4 3 DIFLUCAN 100 1 tablet 2 FLUCONAZOLE 02775082321 No Joseph W Active MG TAB by mouth 0 Longer Farooq DO daily x 3 1 Active days 5 / 0 4 / 1 3 DIFLUCAN 100 1 tablet 2 FLUCONAZOLE 00577717592 No Joseph W Active MG TABS by mouth 0 Longer Faroqo DO every 1 Active other day 5 for 2 / doses 0 1 / 2 3 ZOFRAN 4 MG 1 po q6hr ONDANSETRON HCL 12163604677 Active Joseph W Active TABS PRN Nausea Farooq DO PREDNISONE 2 tabs 2 PREDNISONE 75260400591 No Joseph W Active 20 MG TAB daily for 0 Longer Farooq DO 3 days, 1 1 Active tab daily 4 for 3 / days, 1/2 1 tab daily 0 for 2 days / 2 5 AMOXICILLIN 2 po BID x 2 AMOXICILLIN 79977277432 No Maite C Active 500 MG CAPS 10 days 0 Longer Laura ONEAL 1 Active PhD 4 0 / 2 0 LISINOPRIL 1 tablet 2 LISINOPRIL 70096051989 No Maite C Active 20 MG TABS by mouth 0 Longer Laura ONEAL daily 1 Active PhD 4 0 / 1 0 POTASSIUM 2 capsule 2 POTASSIUM 27785934808 No Joseph W Active CHLORIDE CR by mouth 0 CHLORIDE Longer Farooq DO 10 MEQ CPCR daily 1 Active 4 / 0 8 / 2 9 SPIRONOLACTO 1 tablet 2 SPIRONOLACTONE 49788452824 No Joseph W Active NE 25 MG TAB by mouth 0 Longer Farooq DO daily 1 Active 4 / 0 8 / 2 9 METFORMIN 1 tablet 2 METFORMIN HCL 39919494957 No Joseph W Active HCL 500 MG by mouth 0 Longer Farooq DO TABS twice 1 Active daily 4 0 8 / 2 9 AMARYL 1 MG 1 tab 2 GLIMEPIRIDE 52115403523 No Joseph W Active TABS twice 0 Longer Farooq DO daily 1 Active 4 / 0 2 9 PHENTERMINE 1 po q am 2 PHENTERMINE HCL 62712002134 No Joseph W Active HCL 37.5 MG for wt. 0 Longer Farooq DO TABS loss 1 Active 3 / 2 / 2 3 PROMETHAZINE 1 tab by 2 PROMETHAZINE 92752179253 No Joseph W Active HCL 25 MG mouth 0 HCL Longer Farooq DO TABS every 6 1 Active hours as 3 needed / 0 9 / 0 9 CIPROFLOXACI Take one 2 CIPROFLOXACIN 54549007839 No Joseph W Active N HCL 500 MG (1) tablet 0 HCL Longer Farooq DO TABS by mouth 1 Active twice a 3 day / 0 9 / 0 9 ABILIFY 5 MG one p.o. 2 ARIPIPRAZOLE 69007826474 No Joseph W Active TABS q. day 0 Longer Farooq DO 1 Active 3 / 0 9 / 0 9 HYDROCHLOROT 2 tabs 2 HYDROCHLOROTHIA 17882297476 No Joseph W Active HIAZIDE 25 every 0 ZIDE Longer Farooq DO MG TABS morning 1 Active 3 / 0 6 / 2 7 ABILIFY 2 MG 1 po q hs 2 ARIPIPRAZOLE 99682161256 No Joseph W Active TABS for major 0 Longer [facility] depression 1 Active 3 / 0 5 / 0 7 ADIPEX-P 1/2 tab po 2 PHENTERMINE HCL 18146637076 No Casey Active 37.5 MG CAPS q am for 0 Longer [facility] weight 1 Active loss 3 / 0 5 / 0 1 CIPRO 500 MG 1 tablet 2 CIPROFLOXACIN 54535619220 No Casey Active TAB by mouth 0 HCL Longer [facility] twice 1 Active daily 3 / 0 5 / 0 1 NECON 1 po daily 2 NORETHINDRONE-E 58244832372 No Casey Active () 1- 0 TH ESTRADIOL Longer [facility] MG-MCG TABS 1 Active 3 / 0 5 / 0 1 TRAMADOL HCL 1 po tid 2 TRAMADOL HCL 57303218180 No Casey Active 50 MG TABS with ES 0 Longer [facility] Tylenol 1 Active 3 / 0 5 / 0 1 FLUCONAZOLE one p.o. 2 FLUCONAZOLE 93339897836 No Casey Active 100 MG TABS q. day 2 0 Longer [facility] days 1 Active 3 / 0 5 / 0 1 POTASSIUM 1 capsule 2 POTASSIUM 41862123574 No Casey Active CHLORIDE CR by mouth 0 CHLORIDE Longer [facility] 10 MEQ CPCR daily 1 Active 3 / 0 5 / 0 1 IMIPRAMINE Take 6 IMIPRAMINE HCL 33269092255 Active Indigo Active HCL 50 MG tablets by Yokum TABS mouth at CARDIAC MONITOR TECHNICIAN bedtime DIFLUCAN 100 1 tablet 2 FLUCONAZOLE 93765471074 No Joseph W Active MG TAB by mouth 0 Longer [facility] daily 1 Active 2 / 0 2 / 2 4 VERAPAMIL 2 po bid VERAPAMIL HCL 44803539228 Active Indigo Active HCL CR 120 Yokum MG TAB CR CARDIAC MONITOR TECHNICIAN PERMETHRIN 5 apply neck 2 PERMETHRIN 70905097539 No Joseph W Active % CREA to toes 0 Longer [facility] tonight 1 Active and then 2 rinse off / in 0 morning. 1 repeat at / 7 days 2 0 SEROQUEL XR one p.o. 2 QUETIAPINE 45740656807 No Joseph W Active 50 MG q. evening 0 FUMARATE Longer Farooq DO [id number] 1 Active 2 / 0 1 / 2 0 TRAMADOL HCL 1-2 2 TRAMADOL HCL 29763620483 No Joseph W Active 50 MG TABS tablets 0 Longer Farooq DO every 6-8 1 Active hours as 2 needed for / pain 0 1 / 2 0 ALPRAZOLAM 3 one p.o. ALPRAZOLAM 59937257190 Active Indigo Active MG [id number] q.h.s. Yokum CARDIAC MONITOR TECHNICIAN ALPRAZOLAM Take 1 2 ALPRAZOLAM 60068939766 No Joseph W Active XR [id number] tablet by 0 [id number] Longer Farooq DO mouth at 1 Active bedtime 1 / 2 9 DIFLUCAN 100 1 tablet 2 FLUCONAZOLE 17899355383 No Joseph W Active MG TAB by mouth 0 Longer Farooq DO daily 1 Active 0 / 0 6 AMBIEN 10 MG 1 tab by ZOLPIDEM 97113297403 Active Indigo Active TAB mouth at TARTRATE Yokum bedtime as CARDIAC MONITOR TECHNICIAN needed for sleep DIFLUCAN 100 1 tablet DIFLUCAN 353406 FLUCONAZOLE Inactive MG TAB by mouth 100 MG TAB daily ALPRAZOLAM Take 1 ALPRAZOLAM ALPRAZOLAM Inactive XR [id number] tablet by XR [id number] mouth at [id number] bedtime TRAMADOL HCL 1-2 TRAMADOL 978363 TRAMADOL HCL Inactive 50 MG TABS tablets HCL 50 MG every 6-8 TABS hours as needed for pain SEROQUEL XR one p.o. SEROQUEL XR QUETIAPINE Inactive 50 MG q. 50 MG FUMARATE [id number] evening [id number] PERMETHRIN 5 apply PERMETHRIN 125872 PERMETHRIN Inactive % CREA neck to 5 % CREA toes tonight and then rinse off in morning. repeat at 7 days DIFLUCAN 100 1 tablet DIFLUCAN 215889 FLUCONAZOLE Inactive MG TAB by mouth 100 MG TAB daily POTASSIUM 1 capsule POTASSIUM POTASSIUM Inactive CHLORIDE CR by mouth CHLORIDE CR CHLORIDE 10 MEQ CPCR daily 10 MEQ CPCR FLUCONAZOLE one p.o. FLUCONAZOLE 492982 FLUCONAZOLE Inactive 100 MG TABS q. day 2 100 MG TABS days TRAMADOL HCL 1 po tid TRAMADOL 150782 TRAMADOL HCL Inactive 50 MG TABS with ES HCL 50 MG Tylenol TABS NECON 35 1 po NECON 35 NORETHINDRONE- Inactive (28) 1-35 daily () - ETH ESTRADIOL MG-MCG TABS MG-MCG TABS CIPRO 500 MG 1 tablet CIPRO 500 124550 CIPROFLOXACIN Inactive TAB by mouth MG TAB HCL twice daily ADIPEX-P 1/2 tab ADIPEX-P 901865 PHENTERMINE Inactive 37.5 MG CAPS po q am 37.5 MG HCL for CAPS weight loss ABILIFY 2 MG 1 po q hs ABILIFY 2 731549 ARIPIPRAZOLE Inactive TABS for major MG TABS depressio n HYDROCHLOROT 2 tabs HYDROCHLORO 091154 HYDROCHLOROTHI Inactive HIAZIDE 25 every THIAZIDE 25 AZIDE MG TABS morning MG TABS ABILIFY 5 MG one p.o. ABILIFY 5 561206 ARIPIPRAZOLE Inactive TABS q. day MG TABS CIPROFLOXACI Take one CIPROFLOXAC 450371 CIPROFLOXACIN Inactive N HCL 500 MG (1) IN HCL 500 HCL TABS tablet by MG TABS mouth twice a day PROMETHAZINE 1 tab by PROMETHAZIN 972663 PROMETHAZINE Inactive HCL 25 MG mouth E HCL 25 MG HCL TABS every 6 TABS hours as needed PHENTERMINE 1 po q am PHENTERMINE 567284 PHENTERMINE Inactive HCL 37.5 MG for wt. HCL 37.5 MG HCL TABS loss TABS AMARYL 1 MG 1 tab AMARYL 1 MG 19910808 GLIMEPIRIDE Inactive TABS twice TABS daily METFORMIN 1 tablet METFORMIN 833873 METFORMIN HCL Inactive HCL 500 MG by mouth HCL 500 MG TABS twice TABS daily SPIRONOLACTO 1 tablet SPIRONOLACT 191618 SPIRONOLACTONE Inactive NE 25 MG TAB by mouth ONE 25 MG daily TAB POTASSIUM 2 capsule POTASSIUM POTASSIUM Inactive CHLORIDE CR by mouth CHLORIDE CR CHLORIDE 10 MEQ CPCR daily 10 MEQ CPCR LISINOPRIL 1 tablet LISINOPRIL 696618 LISINOPRIL Inactive 20 MG TABS by mouth 20 MG TABS daily DIFLUCAN 100 1 tablet DIFLUCAN 647328 FLUCONAZOLE Inactive MG TABS by mouth 100 MG TABS every other day for 2 doses DIFLUCAN 100 1 tablet DIFLUCAN 281265 FLUCONAZOLE Inactive MG TAB by mouth 100 MG TAB daily x 3 days PREDNISONE 2 tablets PREDNISONE 104458 PREDNISONE Inactive 20 MG TAB today, 20 MG TAB then 1 tablet days 2-4 VYVANSE 20 1 tablet VYVANSE 20 LISDEXAMFETAMI Inactive MG ORAL CAPS daily for MG ORAL NE DIMESYLATE binge CAPS eating disorder TRAMADOL HCL 1/2 po TRAMADOL 781678 TRAMADOL HCL Inactive 50 MG TABS tid [...] TB24 daily AMOXICILLIN 2 po BID AMOXICILLIN 700408 AMOXICILLIN Inactive 500 MG CAPS x 10 days 500 MG CAPS PREDNISONE 2 tabs PREDNISONE 308242 PREDNISONE Inactive 20 MG TAB daily for 20 MG TAB 3 days, 1 tab daily for 3 days, 1/2 tab daily for 2 days NITROFURANTO One NITROFURANT 8807906 NITROFURANTOIN Inactive IN MONOHYD capsule OIN MONOHYD MONOHYD MACRO MACRO 100 MG BID for MACRO 100 CAPS UTI MG CAPS PREDNISONE 2 pills PREDNISONE 749975 PREDNISONE Inactive 20 MG TAB daily x 4 20 MG TAB days AZITHROMYCIN 2 po qd x AZITHROMYCI 6874789 AZITHROMYCIN Inactive 250 MG TABS 1 day, [...] HGBA1C - Chemistry sodium, serum 140 mmol/L 538-167 8064/06/03 potassium, serum 3.9 mmol/L 3.5-5.2 chloride, serum [...] Panel - Chemistry cholesterol, serum 157 mg/dL 701-191 2909/08/22 triglyceride, serum, fasting 215 mg/dL 30-200 HDL [...] mg/dL Encounters Code Encounter Date Provider Facility CPT-33371 Level 4 New Patient Yury Benoit MD [facility] 15:17:12 CDT CPT-61184 Level 3 Est. Patient [facility] - 13:37:46 CDT [place] CPT-76763 Level 4 Est. Patient [facility] - 10:01:06 CDT [place] CPT-65618 Level 3 Est. Patient [facility] 08:58:07 CDT SURGICAL SERVICES ASSISTANT CPT-93494 Level 3 Est. Patient Faby Marino [facility] 14:40:56 CDT CARDIAC MONITOR TECHNICIAN CPT-41482 Level 4 Est. Patient [facility] 17:29:53 DIRECTOR SOCIAL SERVICE SURGICAL SERVICES ASSISTANT CPT-47928 Level 4 Est. Patient [facility] 09:51:54 DIRECTOR SOCIAL SERVICE CPT-41774 Level 3 Est. Patient [facility] 18:59:38 CDT CPT-57222 Level 3 Est. Patient Joseph Pineda [facility] 14:42:12 CDT -C CPT-46790 Level 3 Est. Patient Joseph Trivedi [facility] 22:18:20 CDT -C CPT-37139 Level 3 Est. Patient Joseph Trivedi [facility] 16:46:04 CDT -[facility] CPT-50114 Level 3 Est. Patient Joseph Pineda [facility] 15:39:53 CDT -[facility] CPT-18317 Level 3 Est. Patient Maite Sanchez MD [facility] 13:33:34 CDT -[facility] CPT-64142 Level 3 Est. Patient Joseph Pineda [facility] 11:37:08 CDT -[facility] CPT-73038 Level 3 Est. Patient Joseph Pineda [facility] 17:13:29 DIRECTOR SOCIAL SERVICE -[facility] CPT-93106 Level 3 Est. Patient Joseph Pineda [facility] 18:42:44 CDT CPT-23561 Level 3 Est. Patient Joseph Edwin [facility] 16:25:39 CDT CPT-41214 Level 3 Est. Patient Casey Brower [facility] 09:52:45 CDT -R[facility] CPT-42086 Level 3 Est. Patient Joseph Pineda [facility] 11:03:29 DIRECTOR SOCIAL SERVICE -RHC CPT-43773 Level 3 Est. Patient Joseph Pineda [facility] 11:03:08 DIRECTOR SOCIAL SERVICE -R[facility] CPT-19347 Level 3 Est. Patient Joseph Pineda [facility] 14:33:31 CDT -[facility] CPT-74540 Level 3 Est. Patient Joseph Pineda [facility] 17:05:02 DIRECTOR SOCIAL SERVICE -RHC CPT-70947 Level 3 Est. Patient Joseph Pineda [facility] 17:48:06 DIRECTOR SOCIAL SERVICE -RHC CPT-32136 Level 3 Est. Patient Joseph Pineda [facility] 14:59:22 DIRECTOR SOCIAL SERVICE -RHC CPT-40348 Level 3 Est. Patient Joseph Pineda [facility] - 21:45:56 DIRECTOR SOCIAL SERVICE Jose [facility] CPT-45730 Level 3 Est. Patient Joseph W [facility] 21:29:50 CDT -[facility] CPT-11389 Level 3 Est. Patient Joseph Pineda [facility] 12:41:09 CDT -[facility] Procedures Code Procedure Name Date Entry Date Standard Description CPT-49259 Wet Mount - LAB USE ONLY 12:39:03 DIRECTOR SOCIAL SERVICE CPT-63520 Vaginal Culture - LAB USE ONLY 12:39:03 DIRECTOR SOCIAL SERVICE CPT-91006 Urine Culture - LAB USE ONLY 11:52:44 DIRECTOR SOCIAL SERVICE CPT-87690 UA w micro - LAB USE ONLY 11:52:44 DIRECTOR SOCIAL SERVICE CPT-21343 Postop F/U Visit 12:08:35 CDT CPT-10216 Postop F/U Visit 18:20:10 CDT CPT-A4351 Coloplast Female Cath 09:37:10 CDT CPT-67263 Urine Dip (Floor Use Only) 15:17:13 CDT CPT-10783 Dil F ureth int 15:17:13 CDT CPT-48888 Venipuncture Draw Fee 09:19:08 CDT CPT-53517 Lipid - LAB USE ONLY 09:19:07 CDT CPT-JTINJ Asp/Joint Injection 09:26:49 CDT CPT-06252 Chest 2V Frontal and Lat 14:47:43 CDT CPT-JTINJ Asp/Joint Injection 09:51:53 DIRECTOR SOCIAL SERVICE CPT-OV Office Visit 17:39:05 CDT CPT-OV Office Visit 15:19:50 CDT CPT-21776 Sono transvag pelvis non OB uterus ovaries cervix 18:04:34 CDT CPT-70181 Venipuncture Draw Fee 08:55:49 DIRECTOR SOCIAL SERVICE
--- OUTSIDE RECORDS SUMMARY | 2016-11-20 13:55 | External Medical Summary | Clinical Summary ---
:1965 Author Organization [facility] [place] Address [address] [address] Phone Allergies, Adverse Reactions, Alerts Allergy Name Reaction Description Start Date Severity Status Provider VERSED States jsut about Critical Active Gloria Saavedra OVERNIGHT STOCKER killed her NKDA Critical Active Indigo Yokum QUANTITATIVE ANALYST MARKETING NKDA Critical No Longer Indigo Yokum QUANTITATIVE ANALYST MARKETING Active NKDA Critical Inactive Adrianna Elder Conditions [...] Resolved Indigo Other malaise 05/24 07/02 Yokum QUANTITATIVE ANALYST MARKETING and fatigue SLEEP APNEA, 327.23 Active Joseph Pineda Obstructive OBSTRUCTIVE, 06/27 06/27 Farooq DO sleep apnea MILD (adult) (pediatric) OVERWEIGHT 278.02 Inactive Joseph Pineda Overweight 06/28 06/28 Farooq DO Obesity 278.00 Active Indigo Obesity, 06/28 10/18 Yokum QUANTITATIVE ANALYST MARKETING unspecified OTH GENERAL V70.3 Resolved Maite Gutierrez Other general MEDICAL Laura ONEAL medical EXAMINATION PhD examination for ADMIN administrative PURPOSES purposes OTHER 790.29 Resolved Maite C Other abnormal ABNORMAL 05/20 Laura ONEAL glucose GLUCOSE PhD ACUTE 466.0 Resolved Maite Gutierrez Acute bronchitis BRONCHITIS 09/02 Laura ONEAL PhD DEPENDENT 782.3 Resolved Indigo Edema EDEMA, LEGS, 10/29 10/18 [employer]okum QUANTITATIVE ANALYST MARKETING BILATERAL HYPOKALEMIA, 276.8 Resolved Indigo Hypopotassemia MILD 10/29 07/02 Yokum QUANTITATIVE ANALYST MARKETING Diabetes, 250.00 Inactive Joseph Pineda Diabetes Type 2 06/27 06/27 Farooq DO mellitus without mention of complication, type II or unspecified type, not stated as uncontrolled Diabetes 250.02 Resolved Indigo Diabetes mellitus, 06/27 10/18 [employer]okum QUANTITATIVE ANALY[employer] MARKETING mellitus without type II, mention of uncontrolled [...] Resolved Indigo Routine gynecological 12/14 07/02 Yokum QUANTITATIVE ANALYST MARKETING gynecological examination examination Postmenopausa 627.1 Resolved Indigo Postmenopausal l bleeding 12/14 07/02 Yokum QUANTITATIVE ANALYST MARKETING bleeding Screening for V76.51 Resolved Indigo Screening for malignant 12/26 07/02 Yokum QUANTITATIVE ANALYST MARKETING malignant neoplasms of neoplasms of colon colon Insomnia, 307.42 Active Indigo 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 QUANTITATIVE ANALYST MARKETING disorder of initiating or maintaining sleep Establish V68.89 Resolved Indigo Encounters for care or get 01/16 07/02 [employer] QUANTITATIVE ANALYST MARKETING other specified acquainted administrative visit purpose Weakness, 342.90 Resolved Indigo Hemiplegia, left side of 06/20 10/18 Yokum QUANTITATIVE ANALYST MARKETING unspecified, body affecting unspecified side TIA 435.9 Active Indigo Unspecified 06/20 07/02 Yokum QUANTITATIVE ANALYST MARKETING transient cerebral ischemia Knee pain, 719.46 Active Indigo Pain in joint bilateral 06/20 10/18 [employer]okum QUANTITATIVE ANALYST MARKETING involving lower leg Bronchitis 490 Resolved Indigo Bronchitis, not 07/23 10/18 Yokum QUANTITATIVE ANALYST MARKETING specified as acute or chronic Diabetes 357.2 Active Maliheh Polyneuropathy mellitus, 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 Knee pain, 719.46 Active Indigo Pain in joint right 06/20 10/18 [employer]okum QUANTITATIVE ANALYST MARKETING involving lower leg Jesi 112.3 Active Indigo Candidiasis of intertrigo 10/09 10/18 [employer] QUANTITATIVE ANALYST MARKETING skin and nails Hyperlipidemi 272.4 Active Anne Other and a 12/24 12/24 Neil unspecified RMA hyperlipidemia Incontinence, 788.33 Active Indigo Mixed mixed, 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 QUANTITATIVE ANALYST MARKETING incontinence urge/stress (female) (male) Female stress 625.6 Active Yury Monaco Stress incontinence 01/03 01/03 Cy patel MD female Vaginal odor 623.8 Active Gloria Other specified 05/28 05/28 Naff OVERNIGHT STOCKER noninflammatory disorders of vagina Urinary tract 599.0 Active Indigo Urinary tract infection 05/28 05/28 Yok QUANTITATIVE ANALYST MARKETING infection, site not specified Urine odor 791.9 Active Indigo Other 05/28 06/26 [employer]okum QUANTITATIVE ANALYST MARKETING nonspecific findings on examination of urine ABNORMAL VAGINAL ICD-626.9 Inactive Maite Sanchez BLEEDING PhD SCABIES ICD-133.0 Inactive Maite Sanchez PhD FATIGUE ICD-780.79 Inactive Indigo [employer]ok[employer] QUANTITATIVE ANALYST MARKETING OTH GENERAL ICD-V70.3 Inactive Maite Sanchez MEDICAL PhD EXAMINATION ADMIN PURPOSES OTHER ABNORMAL ICD-790.29 Inactive Maite Sanchez GLUCOSE MD PhD ACUTE BRONCHITIS ICD-466.0 Inactive Maite Sanchez PhD DEPENDENT EDEMA, ICD-782.3 Inactive Indigo Yokum LEGS, BILATERAL QUANTITATIVE ANALYST MARKETING HYPOKALEMIA, MILD ICD-276.8 Inactive Indigo [employer]ok[employer] QUANTITATIVE ANALYST MARKETING Diabetes mellitus, ICD-250.02 Inactive Indigo Yokum type II, QUANTITATIVE ANALYST MARKETING uncontrolled Sinusitis, ICD-461.1 Inactive Ismael Coyne frontal, acute Amandeep ONEAL Laryngitis, acute ICD-464.00 Inactive Ismael Coyne Amandeep ONEAL Routine ICD-V72.31 Inactive Indigo Yokum gynecological QUANTITATIVE ANALYST MARKETING examination Postmenopausal ICD-627.1 Inactive Indigo Yokum 2015 bleeding QUANTITATIVE ANALYST MARKETING Screening for ICD-V76.51 Inactive Indigo Yokum 2015 malignant QUANTITATIVE ANALYST MARKETING neoplasms of colon Establish care or ICD-V68.89 Inactive Indigo Yokum get acquainted QUANTITATIVE ANALYST MARKETING visit Weakness, left ICD-342.90 Inactive Indigo Yokum side of body QUANTITATIVE ANALYST MARKETING Bronchitis ICD-490 Inactive Indigo Yokum QUANTITATIVE ANALYST MARKETING Medication List Medication Instructions Start Stop Generic NDC Status Provider Patient Date Date Name Instruction REGINALDRE 5 1 tablet SOLIFENACIN 15343330170 Active J Carlos Enrique Active MG TABS daily SUCCINATE Cy ONEAL CIPRO 250 MG 1 tablet 2 CIPROFLOXACIN 75740629221 No Indigo Active TAB by mouth 0 HCL Longer Yokum twice 1 Active QUANTITATIVE ANALYST MARKETING daily 7 METFORMIN 2 tablets 2 METFORMIN HCL 94226257566 No Indigo Active HCL 500 MG by mouth 0 Longer Yokum TB24 twice 1 Active QUANTITATIVE ANALYST MARKETING daily 2 AMARYL 1 MG 1 tablet 2 GLIMEPIRIDE 48823076187 No Indigo Active ORAL TABS orally 0 Longer Yokum twice 1 Active QUANTITATIVE ANALYST MARKETING daily 2 NYSTATIN apply to NYSTATIN 27042762628 Active Indigo Active 792990 rash TID Yokum UNIT/GM CREA PRN QUANTITATIVE ANALYST MARKETING TROKENDI XR 2 tab TOPIRAMATE 27731383498 Active Maliheh Active 100 MG ORAL daily Ziglari [id number] WINE PASTEURIZER METOPROLOL 1 tab po METOPROLOL 43135342512 Active Indigo Active TARTRATE 25 bid TARTRATE Yokum MG TABS QUANTITATIVE ANALYST MARKETING AZITHROMYCIN 2 po qd x 2 AZITHROMYCIN 22279679395 No Jillina Active 250 MG TABS 1 day, 0 Longer Frazell then 1 po 1 Active QUANTITATIVE ANALYST MARKETING qd x 4 6 days / 0 3 / 2 6 PREDNISONE 2 pills 2 PREDNISONE 32091751431 No Jillina Active 20 MG TAB daily x 4 0 Longer Frazell days 1 Active QUANTITATIVE ANALYST MARKETING 6 / 0 3 / 2 5 PIOGLITAZONE take one a PIOGLITAZONE 90591713828 Active Maliheh Active HCL 30 MG day HCL Ziglari ORAL TABS WINE PASTEURIZER JANUVIA 100 1 tablet 2 SITAGLIPTIN 82347962795 No Indigo Active MG TABS by mouth 0 PHOSPHATE Longer Yokum daily 1 Active QUANTITATIVE ANALYST MARKETING 6 / 0 2 / 1 6 ATORVASTATIN 1 pill by ATORVASTATIN 38159837090 Active Indigo Active CALCIUM 10 mouth CALCIUM Yokum MG TABS nightly, QUANTITATIVE ANALYST MARKETING for cholestero l ASPIRIN 81 1 po qd ASPIRIN 06622814905 Active Indigo Active MG ORAL TABS Yokum QUANTITATIVE ANALYST MARKETING NITROFURANTO One 2 NITROFURANTOIN 50324295702 No Indigo Active IN MONOHYD capsule 0 MONOHYD MACRO Longer Yokum MACRO 100 MG BID for 1 Active QUANTITATIVE ANALYST MARKETING CAPS UTI 6 / 0 / 3 TRAMADOL HCL 1/2 po tid 2 TRAMADOL HCL 46265248865 No Jillina Active 50 MG TABS with ES 0 Longer Frazell Tylenol 1 Active QUANTITATIVE ANALYST MARKETING prn pain 5 / 0 2 VYVANSE 20 1 tablet 2 LISDEXAMFETAMIN 85134482864 No Jillina Active MG ORAL CAPS daily for 0 E DIMESYLATE Longer Frazell binge 1 Active QUANTITATIVE ANALYST MARKETING eating 5 disorder / 0 2 LASIX 20 MG 2 tablet FUROSEMIDE 16348237307 Active Indigo Active TAB by mouth Yokum daily QUANTITATIVE ANALYST MARKETING CELEBREX 200 1 tablet CELECOXIB 91610273245 Active Indigo Active MG CAPS by mouth Yokum daily with QUANTITATIVE ANALYST MARKETING meals PREDNISONE 2 tablets 2 PREDNISONE 16602390406 No Joseph W Active 20 MG TAB today, 0 Longer Farooq DO then 1 1 Active tablet 5 days 2-4 / 0 4 / 1 3 DIFLUCAN 100 1 tablet 2 FLUCONAZOLE 62026429689 No Joseph W Active MG TAB by mouth 0 Longer Farooq DO daily x 3 1 Active days 5 / 0 4 / 1 3 DIFLUCAN 100 1 tablet 2 FLUCONAZOLE 71586404792 No Joseph W Active MG TABS by mouth 0 Longer Farooq DO every 1 Active other day 5 for 2 / doses 0 1 / 2 3 ZOFRAN 4 MG 1 po q6hr ONDANSETRON HCL 29655247266 Active Joseph W Active TABS PRN Nausea Farooq DO PREDNISONE 2 tabs 2 PREDNISONE 18465498140 No Joseph W Active 20 MG TAB daily for 0 Longer Farooq DO 3 days, 1 1 Active tab daily 4 for 3 / days, 1/2 1 tab daily 0 for 2 days / 2 5 AMOXICILLIN 2 po BID x 2 AMOXICILLIN 31114757844 No Maite C Active 500 MG CAPS 10 days 0 Longer Laura ONEAL 1 Active PhD 0 / 2 0 LISINOPRIL 1 tablet 2 LISINOPRIL 88646456789 No Maite C Active 20 MG TABS by mouth 0 Longer Kimberlyl MD daily 1 Active PhD 0 / 0 POTASSIUM 2 capsule 2 POTASSIUM 66483100346 No Joseph W Active CHLORIDE CR by mouth 0 CHLORIDE Longer Farooq DO 10 MEQ CPCR daily 1 Active 4 / 0 8 / 2 9 SPIRONOLACTO 1 tablet 2 SPIRONOLACTONE 48302369366 No Joseph W Active NE 25 MG TAB by mouth 0 Longer Farooq DO daily 1 Active 4 / 0 8 2 9 METFORMIN 1 tablet 2 METFORMIN HCL 59891431091 No Joseph W Active HCL 500 MG by mouth 0 Longer Farooq DO TABS twice 1 Active daily 4 / 0 8 / 2 9 AMARYL 1 MG 1 tab 2 GLIMEPIRIDE 58843836131 No Joseph W Active TABS twice 0 Longer Farooq DO daily 1 Active 4 / 0 8 / 2 9 PHENTERMINE 1 po q am 2 PHENTERMINE HCL 10738384484 No Joseph W Active HCL 37.5 MG for wt. 0 Longer Farooq DO TABS loss 1 Active 3 / 1 2 / 2 3 PROMETHAZINE 1 tab by 2 PROMETHAZINE 94331647001 No Joseph W Active HCL 25 MG mouth 0 HCL Longer Farooq DO TABS every 6 1 Active hours as 3 needed / 0 9 / 0 9 CIPROFLOXACI Take one 2 CIPROFLOXACIN 67050840027 No Joseph W Active N HCL 500 MG (1) tablet 0 HCL Longer Farooq DO TABS by mouth 1 Active twice a 3 day / 0 9 / 0 9 ABILIFY 5 MG one p.o. 2 ARIPIPRAZOLE 69083787759 No Joseph W Active TABS q. day 0 Longer Farooq DO 1 Active 3 / 0 9 / 0 9 HYDROCHLOROT 2 tabs 2 HYDROCHLOROTHIA 00353296635 No Joseph W Active HIAZIDE 25 every 0 ZIDE Longer Farooq DO MG TABS morning 1 Active 3 / 0 6 / 2 7 ABILIFY 2 MG 1 po q hs 2 ARIPIPRAZOLE 27123455817 No Joseph W Active TABS for major 0 Longer [facility] depression 1 Active 3 / 0 5 / 0 7 ADIPEX-P 1/2 tab po 2 PHENTERMINE HCL 47842412360 No Casey Active 37.5 MG CAPS q am for 0 Longer [facility] weight 1 Active loss 3 / 0 5 / 0 1 CIPRO 500 MG 1 tablet 2 CIPROFLOXACIN 91617962134 No Casey Active TAB by mouth 0 HCL Longer [facility] twice 1 Active daily 3 / 0 5 / 0 1 NECON 1 po daily 2 NORETHINDRONE-E 07717769202 No Casey Active () - 0 ESTRADIOL Longer [facility] MG-MCG TABS 1 Active 3 / 0 5 / 0 1 TRAMADOL HCL 1 po tid 2 TRAMADOL HCL 95755109340 No Casey Active 50 MG TABS with ES 0 Longer [facility] Tylenol 1 Active 3 / 0 5 / 0 1 FLUCONAZOLE one p.o. 2 FLUCONAZOLE 71394895195 No Casey Active 100 MG TABS q. day 2 0 Longer [facility] days 1 Active 3 / 0 5 / 0 1 POTASSIUM 1 capsule 2 POTASSIUM 88445787276 No Casey Active CHLORIDE CR by mouth 0 CHLORIDE Longer [facility] 10 MEQ CPCR daily 1 Active 3 / 0 5 / 0 1 IMIPRAMINE Take 6 IMIPRAMINE HCL 47813477688 Active Indigo Active HCL 50 MG tablets by Yokum TABS mouth at QUANTITATIVE ANALYST MARKETING bedtime DIFLUCAN 100 1 tablet 2 FLUCONAZOLE 43116735438 No Joseph W Active MG TAB by mouth 0 Longer [facility] daily 1 Active 2 / 0 2 / 2 4 VERAPAMIL 2 po bid VERAPAMIL HCL 67836583121 Active Indigo Active HCL CR 120 Yokum MG TAB CR QUANTITATIVE ANALYST MARKETING PERMETHRIN 5 apply neck 2 PERMETHRIN 29326210487 No Joseph W Active % CREA to toes 0 Longer [facility] tonight 1 Active and then 2 rinse off / in 0 morning. 1 repeat at / 7 days 2 0 SEROQUEL XR one p.o. 2 QUETIAPINE 98214605519 No Joseph W Active 50 MG q. evening 0 FUMARATE Longer Farooq DO [id number] 1 Active 2 / 0 1 / 2 0 TRAMADOL HCL 1-2 2 TRAMADOL HCL 03380515453 No Joseph W Active 50 MG TABS tablets 0 Longer Farooq DO every 6-8 1 Active hours as 2 needed for / pain 0 1 / 2 0 ALPRAZOLAM 3 one p.o. ALPRAZOLAM 23019242074 Active Indigo Active MG [id number] q.h.s. Yokum QUANTITATIVE ANALYST MARKETING ALPRAZOLAM Take 1 2 ALPRAZOLAM 03128336793 No Joseph W Active XR [id number] tablet by 0 [id number] Longer Farooq DO mouth at 1 Active bedtime 1 / 2 9 DIFLUCAN 100 1 tablet 2 FLUCONAZOLE 48175295216 No Joseph W Active MG TAB by mouth 0 Longer Farooq DO daily 1 Active 0 / 0 6 AMBIEN 10 MG 1 tab by ZOLPIDEM 69500665619 Active Indigo Active TAB mouth at TARTRATE Yokum bedtime as QUANTITATIVE ANALYST MARKETING needed for sleep DIFLUCAN 100 1 tablet DIFLUCAN 779909 FLUCONAZOLE Inactive MG TAB by mouth 100 MG TAB daily ALPRAZOLAM Take 1 ALPRAZOLAM ALPRAZOLAM Inactive XR [id number] tablet by XR [id number] mouth at [id number] bedtime TRAMADOL HCL 1-2 TRAMADOL 633297 TRAMADOL HCL Inactive 50 MG TABS tablets HCL 50 MG every 6-8 TABS hours as needed for pain SEROQUEL XR one p.o. SEROQUEL XR QUETIAPINE Inactive 50 MG q. 50 MG FUMARATE [id number] evening [id number] PERMETHRIN 5 apply PERMETHRIN 164043 PERMETHRIN Inactive % CREA neck to 5 % CREA toes tonight and then rinse off in morning. repeat at 7 days DIFLUCAN 100 1 tablet DIFLUCAN 297351 FLUCONAZOLE Inactive MG TAB by mouth 100 MG TAB daily POTASSIUM 1 capsule POTASSIUM POTASSIUM Inactive CHLORIDE CR by mouth CHLORIDE CR CHLORIDE 10 MEQ CPCR daily 10 MEQ CPCR FLUCONAZOLE one p.o. FLUCONAZOLE 19760111 FLUCONAZOLE Inactive 100 MG TABS q. day 2 100 MG TABS days TRAMADOL HCL 1 po tid TRAMADOL 447760 TRAMADOL HCL Inactive 50 MG TABS with ES HCL 50 MG Tylenol TABS NECON 35 1 po NECON NORETHINDRONE- Inactive () 1-35 daily () 1-35 ETH ESTRADIOL MG-MCG TABS MG-MCG TABS CIPRO 500 MG 1 tablet CIPRO 500 166623 CIPROFLOXACIN Inactive TAB by mouth MG TAB HCL twice daily ADIPEX-P 1/2 tab ADIPEX-P 648843 PHENTERMINE Inactive 37.5 MG CAPS po q am 37.5 MG HCL for CAPS weight loss ABILIFY 2 MG 1 po q hs ABILIFY 2 788494 ARIPIPRAZOLE Inactive TABS for major MG TABS depressio n HYDROCHLOROT 2 tabs HYDROCHLORO 034009 HYDROCHLOROTHI Inactive HIAZIDE 25 every THIAZIDE 25 AZIDE MG TABS morning MG TABS ABILIFY 5 MG one p.o. ABILIFY 5 508509 ARIPIPRAZOLE Inactive TABS q. day MG TABS CIPROFLOXACI Take one CIPROFLOXAC 620732 CIPROFLOXACIN Inactive N HCL 500 MG (1) IN HCL 500 HCL TABS tablet by MG TABS mouth twice a day PROMETHAZINE 1 tab by PROMETHAZIN 621722 PROMETHAZINE Inactive HCL 25 MG mouth E HCL 25 MG HCL TABS every 6 TABS hours as needed PHENTERMINE 1 po q am PHENTERMINE 104246 PHENTERMINE Inactive HCL 37.5 MG for wt. HCL 37.5 MG HCL TABS loss TABS AMARYL 1 MG 1 tab AMARYL 1 MG 19910808 GLIMEPIRIDE Inactive TABS twice TABS daily METFORMIN 1 tablet METFORMIN 099256 METFORMIN HCL Inactive HCL 500 MG by mouth HCL 500 MG TABS twice TABS daily SPIRONOLACTO 1 tablet SPIRONOLACT 648569 SPIRONOLACTONE Inactive NE 25 MG TAB by mouth ONE 25 MG daily TAB POTASSIUM 2 capsule POTASSIUM POTASSIUM Inactive CHLORIDE CR by mouth CHLORIDE CR CHLORIDE 10 MEQ CPCR daily 10 MEQ CPCR LISINOPRIL 1 tablet LISINOPRIL 172641 LISINOPRIL Inactive 20 MG TABS by mouth 20 MG TABS daily DIFLUCAN 100 1 tablet DIFLUCAN 077126 FLUCONAZOLE Inactive MG TABS by mouth 100 MG TABS every other day for 2 doses DIFLUCAN 100 1 tablet DIFLUCAN 394445 FLUCONAZOLE Inactive MG TAB by mouth 100 MG TAB daily x 3 days PREDNISONE 2 tablets PREDNISONE 896133 PREDNISONE Inactive 20 MG TAB today, 20 MG TAB then 1 tablet days 2-4 VYVANSE 20 1 tablet VYVANSE 20 LISDEXAMFETAMI Inactive MG ORAL CAPS daily for MG ORAL NE DIMESYLATE binge CAPS eating disorder TRAMADOL HCL 1/2 po TRAMADOL 570428 TRAMADOL HCL Inactive 50 MG TABS tid [...] TB24 daily AMOXICILLIN 2 po BID AMOXICILLIN 102527 AMOXICILLIN Inactive 500 MG CAPS x 10 days 500 MG CAPS PREDNISONE 2 tabs PREDNISONE 834507 PREDNISONE Inactive 20 MG TAB daily for 20 MG TAB 3 days, 1 tab daily for 3 days, 1/2 tab daily for 2 days NITROFURANTO One NITROFURANT 2878454 NITROFURANTOIN Inactive IN MONOHYD capsule OIN MONOHYD MONOHYD MACRO MACRO 100 MG BID for MACRO 100 CAPS UTI MG CAPS PREDNISONE 2 pills PREDNISONE 223794 PREDNISONE Inactive 20 MG TAB daily x 4 20 MG TAB days AZITHROMYCIN 2 po qd x AZITHROMYCI 1742420 AZITHROMYCIN Inactive 250 MG TABS 1 day, N 250 MG then 1 po TABS qd x 4 days CIPRO 250 MG 1 tablet CIPRO 250 750027 CIPROFLOXACIN Inactive TAB by mouth MG TAB [...] HGBA1C - Chemistry sodium, serum 140 mmol/L 505-104 8538/06/03 potassium, serum 3.9 mmol/L 3.5-5.2 chloride, serum [...] 214 10^3/MM^3 10*3/mm3 142-424 Lab Report: Chlamydia/GC APTIMA/[id number] - Lab chlamydia DNA probe NOT DETECTED NOT DETECTED Lab Report: Chlamydia/GC APTIMA/[id number] - Microbiology Neisseria gonorrhoeae DNA probe NOT DETECTED NOT DETECTED Lab Report: Lipid Panel - Chemistry cholesterol, serum 157 mg/dL 931-656 7651/08/22 triglyceride, serum, fasting 215 mg/dL 30-200 HDL [...] mg/dL Encounters Code Encounter Date Provider Facility CPT-26372 Level 4 Est. Patient [facility] - 17:02:40 HAND SUTURE WINDER [place] CPT-65390 Level 4 New Patient Yury Benoit MD [facility] 15:17:12 CDT CPT-15179 Level 3 Est. Patient [facility] - 13:37:46 CDT [place] CPT-11584 Level 4 Est. Patient [facility] - 10:01:06 CDT [place] CPT-64007 Level 3 Est. Patient [facility] 08:58:07 CDT WINE PASTEURIZER CPT-28101 Level 3 Est[facility] QUANTITATIVE ANALYST MARKETING CPT-33391 Level 4 Est. Patient [facility] 17:29:53 HAND SUTURE WINDER WINE PASTEURIZER CPT-10282 Level 4 Est. Patient [facility] 09:51:54 HAND SUTURE WINDER CPT-58419 Level 3 Est. Patient [facility] 18:59:38 CDT CPT-81287 Level 3 Est. Patient Joseph Pineda [facility] 14:42:12 CDT -[facility] CPT-01826 Level 3 Est. Patient Joseph Trivedi [facility] 22:18:20 CDT -C CPT-09422 Level 3 Est. Patient Joseph W [facility] 16:46:04 CDT -[facility] CPT-56801 Level 3 Est. Patient Joseph Pineda [facility] 15:39:53 CDT -[facility] CPT-35844 Level 3 Est. Patient Maite Sanchez MD [facility] 13:33:34 CDT -[facility] CPT-59656 Level 3 Est. Patient Joseph Pineda [facility] 11:37:08 CDT -[facility] CPT-22151 Level 3 Est. Patient Joseph Pineda [facility] 17:13:29 HAND SUTURE WINDER -[facility] CPT-13269 Level 3 Est. Patient Joseph Pineda [facility] 18:42:44 CDT CPT-53451 Level 3 Est. Patient Joseph Pineda [facility] 16:25:39 CDT CPT-61259 Level 3 Est. Patient Casey Brower [facility] 09:52:45 CDT -[facility] CPT-25239 Level 3 Est. Patient Joseph Pineda [facility] 11:03:29 HAND SUTURE WINDER -[facility] CPT-67625 Level 3 Est. Patient Joseph Pineda [facility] 11:03:08 HAND SUTURE WINDER -[facility] CPT-36113 Level 3 Est. Patient Joseph Pineda [facility] 14:33:31 CDT -[facility] CPT-10280 Level 3 Est. Patient Joseph Pineda [facility] 17:05:02 HAND SUTURE WINDER -[facility] CPT-44777 Level 3 Est. Patient Joseph Pineda [facility] 17:48:06 HAND SUTURE WINDER -[facility] CPT-61246 Level 3 Est. Patient Joseph Pineda [facility] 14:59:22 HAND SUTURE WINDER -[facility] CPT-59490 Level 3 Est. Patient Joseph Pineda [facility] - 21:45:56 HAND SUTURE WINDER [place] [facility] CPT-72732 Level 3 Est. Patient Joseph Edwin [facility] 21:29:50 CDT -[facility] CPT-60607 Level 3 Est. Patient Joseph Trivedi DO [facility] 12:41:09 CDT -[facility] Procedures Code Procedure Name Date Entry Date Standard Description CPT-86643 [place] - LAB USE ONLY 12:39:03 HAND SUTURE WINDER CPT-11476 Vaginal Culture - LAB USE ONLY 12:39:03 HAND SUTURE WINDER CPT-49001 Urine Culture - LAB USE ONLY 11:52:44 HAND SUTURE WINDER CPT-26363 UA w micro - LAB USE ONLY 11:52:44 HAND SUTURE WINDER CPT-74925 Postop F/U Visit 12:08:35 CDT CPT-16956 Postop F/U Visit 18:20:10 CDT CPT-A4351 [facility] Female Cath 09:37:10 CDT CPT-03283 Urine Dip (Floor Use Only) 15:17:13 CDT CPT-13742 Dil F ureth int 15:17:13 CDT CPT-58038 Venipuncture Draw Fee 09:19:08 CDT CPT-38836 Lipid - LAB USE ONLY 09:19:07 CDT CPT-JTINJ Asp/Joint Injection 09:26:49 CDT CPT-71325 Chest 2V Frontal and Lat 14:47:43 CDT CPT-JTINJ Asp/Joint Injection 09:51:53 HAND SUTURE WINDER CPT-OV Office Visit 17:39:05 CDT CPT-OV Office Visit 15:19:50 CDT CPT-69392 Sono transvag pelvis non OB uterus ovaries cervix 18:04:34 CDT CPT-12803 Venipuncture Draw Fee 08:55:49 HAND SUTURE WINDER
--- OUTSIDE RECORDS SUMMARY | 2016-11-20 13:56 | External Medical Summary | Clinical Summary ---
:1965 Author Organization [facility] Address [address] [place] [address] Phone Allergies, Adverse Reactions, Alerts Allergy Name [...] Name Instruction VYVANSE 20 1 tablet LISDEXAMFETAMINE 62199151740 Active Joseph Pineda Active MG ORAL daily for DIMESYLATE Farooq DO CAPS binge eating disorder METFORMIN 2 tablet METFORMIN HCL 65722489169 Active Joseph Pineda Active HCL 500 MG daily for Farooq DO TB24 blood sugars LASIX 20 2 tablet by FUROSEMIDE 48029715134 Active Joseph Pineda Active MG TAB mouth daily Farooq DO CELEBREX 1 tablet by CELECOXIB 80169056911 Active Joseph Pineda Active 200 MG mouth daily Farooq DO CAPS with meals PREDNISONE 2 tablets 2 PREDNISONE 15067112974 No Joseph Pineda Active 20 MG TAB today, then 0 Longer Farooq DO 1 tablet 1 Active days 2-4 5 / 0 4 / 3 DIFLUCAN 1 tablet by 2 FLUCONAZOLE 69115332762 No Joseph W Active 100 MG TAB mouth daily 0 Longer Farooq DO x 3 days 1 Active 5 / 0 4 / 3 AMARYL 1 1 tablet GLIMEPIRIDE 37549356614 Active Joseph Pineda Active MG ORAL orally Farooq DO TABS twice daily DIFLUCAN 1 tablet by 2 FLUCONAZOLE 16880742251 No Joseph W Active 100 MG mouth every 0 Longer Farooq DO TABS other day 1 Active for 2 doses 5 / 0 1 / 2 3 ZOFRAN 4 1 po q6hr ONDANSETRON HCL 90388026730 Active Joseph Pineda Active MG TABS PRN Nausea Farooq DO PREDNISONE 2 tabs 2 PREDNISONE 44551559496 No Joseph Pineda Active 20 MG TAB daily for 3 0 Longer Farooq DO days, 1 tab 1 Active daily for 3 4 days, 1/2 / tab daily 1 for 2 days 0 / 2 5 TRAMADOL 1/2 po tid TRAMADOL HCL 57613879928 Active Joseph Pineda Active HCL 50 MG with ES Farooq DO TABS Tylenol prn pain AMOXICILLI 2 po BID x 2 AMOXICILLIN 85828553186 No Maite C Active N 500 MG 10 days 0 Longer Madril CAPS 1 Active PhD 0 / 2 0 LISINOPRIL 1 tablet by 2 LISINOPRIL 55328582912 No Maite C Active 20 MG TABS mouth 0 Longer Madril daily 1 Active PhD 0 / 1 0 POTASSIUM 2 capsule 2 POTASSIUM CHLORIDE 19596109934 No Joseph Pineda Active CHLORIDE by mouth 0 Longer Farooq DO CR 10 MEQ daily 1 Active CPCR 8 2 9 SPIRONOLAC 1 tablet by 2 SPIRONOLACTONE 82115038616 No Joseph Pineda Active TONE 25 MG mouth daily 0 Longer Farooq DO TAB 1 Active 4 / 0 8 / 2 9 METFORMIN 1 tablet 2 METFORMIN HCL 97953240835 No Joseph Pineda Active HCL 500 MG by mouth 0 Longer Farooq DO TABS twice daily 1 Active 4 / 0 8 / 2 9 AMARYL 1 1 tab twice 2 GLIMEPIRIDE 70615684710 No Joseph W Active MG TABS daily 0 Longer Farooq DO 1 Active 4 / 0 8 / 2 9 PHENTERMIN 1 po q am 2 PHENTERMINE HCL 26486824861 No Joseph W Active E HCL 37.5 for wt. 0 Longer Farooq DO MG TABS loss 1 Active 3 / 1 2 / 2 3 PROMETHAZI 1 tab by 2 PROMETHAZINE HCL 46013202979 No Joseph W Active NE HCL 25 mouth every 0 Longer Farooq DO MG TABS 6 hours as 1 Active needed 3 / 0 9 / 0 9 CIPROFLOXA Take one 2 CIPROFLOXACIN HCL 05709682713 No Joseph W Active DELORES HCL (1) tablet 0 Longer Farooq DO 500 MG by mouth 1 Active TABS twice a day 3 / 0 9 / 0 9 ABILIFY 5 one p.o. q. 2 ARIPIPRAZOLE 99406089556 No Joseph W Active MG TABS day 0 Longer Farooq DO 1 Active 3 / 0 9 / 0 9 HYDROCHLOR 2 tabs 2 HYDROCHLOROTHIAZID 52859465550 No Joseph W Active OTHIAZIDE every 0 E Longer Farooq DO 25 MG TABS morning 1 Active 3 / 0 6 / 2 7 ABILIFY 2 1 po q hs 2 ARIPIPRAZOLE 55162480470 No Joseph W Active MG TABS for major 0 Longer Farooq DO depression 1 Active 3 / 0 5 / 0 7 ADIPEX-P 1/2 tab po 2 PHENTERMINE HCL 44407317593 No Casey Active 37.5 MG q am for 0 Longer Ronan CAPS weight loss 1 Active PA 3 / 0 5 / 0 1 CIPRO 500 1 tablet by 2 CIPROFLOXACIN HCL 91177999208 No Casey Active MG TAB mouth twice 0 Longer Leonarda daily 1 Active PA 3 / 0 5 / 0 1 NECON 1/35 1 po daily 2 NORETHINDRONE-ETH 76088466458 No Casey Active (28) 1-35 0 ESTRADIOL Longer Ronan MG-MCG 1 Active PA TABS 3 / 0 5 / 0 1 TRAMADOL 1 po tid 2 TRAMADOL HCL 48893251968 No Casey Active HCL 50 MG with ES 0 Longer Leonarda TABS Tylenol 1 Active PA 3 / 0 5 / 0 1 FLUCONAZOL one p.o. q. 2 FLUCONAZOLE 13631361330 No Casey Active E 100 MG day 2 days 0 Longer Leonarda TABS 1 Active PA 3 / 0 5 / 0 1 POTASSIUM 1 capsule 2 POTASSIUM CHLORIDE 60950004954 No Casey Active CHLORIDE by mouth 0 Longer Ronan CR 10 MEQ daily 1 Active PA CPCR 3 / 0 5 / 0 1 IMIPRAMINE Take 6 IMIPRAMINE HCL 79617651695 Active Maite C Active HCL 50 MG tablets by Madril TABS mouth at PhD bedtime DIFLUCAN 1 tablet by 2 FLUCONAZOLE 60777302726 No Joseph W Active 100 MG TAB mouth daily 0 Longer Farooq DO 1 Active 2 / 0 2 / 2 4 METOPROLOL 1/2 tab po METOPROLOL 71450924294 Active Joseph W Active TARTRATE bid TARTRATE Farooq DO 25 MG TABS VERAPAMIL 2 po bid VERAPAMIL HCL 76881585795 Active Joseph W Active HCL CR 120 Farooq DO MG TAB CR PERMETHRIN apply neck 2 PERMETHRIN 59539940931 No Joseph W Active 5 % CREA to toes 0 Longer Farooq DO tonight and 1 Active then rinse 2 off in / morning. 0 repeat at 7 1 days / 2 0 SEROQUEL one p.o. q. 2 QUETIAPINE 83937666700 No Joseph W Active XR 50 MG evening 0 FUMARATE Longer Farooq DO [id number] 1 Active 2 / 0 1 / 2 0 TRAMADOL 1-2 tablets 2 TRAMADOL HCL 68121363428 No Joseph W Active HCL 50 MG every 6-8 0 Longer Farooq DO TABS hours as 1 Active needed for 2 pain / 0 1 / 2 0 ALPRAZOLAM one p.o. ALPRAZOLAM 96884694335 Active Joseph W Active 3 MG q.h.s. Farooq DO [id number] ALPRAZOLAM Take 1 2 ALPRAZOLAM 93201005305 No Joseph W Active XR tablet by 0 [id number] Longer Farooq DO [id number] mouth at 1 Active bedtime 1 / 2 9 DIFLUCAN 1 tablet by 2 FLUCONAZOLE 15955320314 No Joseph W Active 100 MG TAB mouth daily 0 Longer Farooq DO 1 Active 0 / 0 6 AMBIEN 10 1 tab by ZOLPIDEM TARTRATE 75808057960 Active Joseph W Active MG TAB mouth at Farooq DO bedtime as needed for sleep DIFLUCAN 100 1 tablet DIFLUCAN 19760111 FLUCONAZOLE Inactive MG TAB by mouth 100 MG TAB daily ALPRAZOLAM Take 1 ALPRAZOLAM ALPRAZOLAM Inactive XR [id number] tablet by XR [id number] mouth at [id number] bedtime TRAMADOL HCL 1-2 TRAMADOL 344846 TRAMADOL HCL Inactive 50 MG TABS tablets HCL 50 MG every 6-8 TABS hours as needed for pain SEROQUEL XR one p.o. SEROQUEL XR QUETIAPINE Inactive 50 MG q. evening 50 MG FUMARATE [id number] PERMETHRIN 5 apply neck PERMETHRIN 650196 PERMETHRIN Inactive % CREA to toes 5 % CREA tonight and then rinse off in morning. repeat at 7 days DIFLUCAN 100 1 tablet DIFLUCAN 961124 FLUCONAZOLE Inactive MG TAB by mouth 100 MG TAB daily POTASSIUM 1 capsule POTASSIUM POTASSIUM Inactive CHLORIDE CR by mouth CHLORIDE CR CHLORIDE 10 MEQ CPCR daily 10 MEQ CPCR FLUCONAZOLE one p.o. FLUCONAZOLE 19760111 FLUCONAZOLE Inactive 100 MG TABS q. day 2 100 MG TABS days TRAMADOL HCL 1 po tid TRAMADOL 251057 TRAMADOL HCL Inactive 50 MG TABS with ES HCL 50 MG Tylenol TABS NECON 1/35 1 po daily NECON /35 NORETHINDRONE- Inactive (28) 1-35 (28) 1-35 ETH ESTRADIOL MG-MCG TABS MG-MCG TABS CIPRO 500 MG 1 tablet CIPRO 500 874692 CIPROFLOXACIN Inactive TAB by mouth MG TAB HCL twice daily ADIPEX-P 1/2 tab po ADIPEX-P 943798 PHENTERMINE Inactive 37.5 MG CAPS q am for 37.5 MG HCL weight CAPS loss ABILIFY 2 MG 1 po q hs ABILIFY 2 ARIPIPRAZOLE Inactive TABS for major MG TABS depression HYDROCHLOROT 2 tabs HYDROCHLORO 270903 HYDROCHLOROTHI Inactive HIAZIDE 25 every THIAZIDE 25 AZIDE MG TABS morning MG TABS ABILIFY 5 MG one p.o. ABILIFY 5 ARIPIPRAZOLE Inactive TABS q. day MG TABS CIPROFLOXACI Take one CIPROFLOXAC 926799 CIPROFLOXACIN Inactive N HCL 500 MG (1) tablet IN HCL 500 HCL TABS by mouth MG TABS twice a day PROMETHAZINE 1 tab by PROMETHAZIN 444676 PROMETHAZINE Inactive HCL 25 MG mouth E HCL 25 MG HCL TABS every 6 TABS hours as needed PHENTERMINE 1 po q am PHENTERMINE 844770 PHENTERMINE Inactive HCL 37.5 MG for wt. HCL 37.5 MG HCL TABS loss TABS AMARYL 1 MG 1 tab AMARYL 1 MG 561307 GLIMEPIRIDE Inactive TABS twice TABS daily METFORMIN 1 tablet METFORMIN 535617 METFORMIN HCL Inactive HCL 500 MG by mouth HCL 500 MG TABS twice TABS daily SPIRONOLACTO 1 tablet SPIRONOLACT 580541 SPIRONOLACTONE Inactive NE 25 MG TAB by mouth ONE 25 MG daily TAB POTASSIUM 2 capsule POTASSIUM POTASSIUM Inactive CHLORIDE CR by mouth CHLORIDE CR CHLORIDE 10 MEQ CPCR daily 10 MEQ CPCR LISINOPRIL 1 tablet LISINOPRIL 883940 LISINOPRIL Inactive 20 MG TABS by mouth 20 MG TABS daily DIFLUCAN 100 1 tablet DIFLUCAN 929701 FLUCONAZOLE Inactive MG TABS by mouth 100 MG TABS every other day for 2 doses DIFLUCAN 100 1 tablet DIFLUCAN 585204 FLUCONAZOLE Inactive MG TAB by mouth 100 MG TAB daily x 3 days PREDNISONE 2 tablets PREDNISONE 283961 PREDNISONE Inactive 20 MG TAB today, 20 MG TAB then 1 tablet days 2-4 AMOXICILLIN 2 po BID x AMOXICILLIN 357597 AMOXICILLIN Inactive 500 MG CAPS 10 days 500 MG CAPS PREDNISONE 2 tabs PREDNISONE 846283 PREDNISONE Inactive 20 MG TAB daily for [...] E&M - 3141-9 242.6 [lb_av] Weight Measured temperature E&M 97.1 [degF] [...] Panel - Chemistry sodium, serum 137 mmol/L 522-343 6924/08/29 potassium, serum 4.1 mmol/L 3.5-5.2 chloride, serum 100 mmol/L 98-107 carbon dioxide, venous blood 31.1 mmol/L 21.0-32.0 blood glucose 138 mg/dL 65-110 calcium, serum 9.2 mg/dL 8.5-10.1 urea nitrogen, blood 9 mg/dL 7-18 creatinine, serum 0.80 mg/dL 0.60-1.30 Lab Report: CBC, Comp. Metabolic Panel, HGBA1C - Chemistry sodium, serum 140 mmol/L 625-371 7708/04/13 potassium, serum 3.9 mmol/L 3.5-5.2 chloride, serum [...] 4.3-6.0 Encounters Code Encounter Date Provider Facility CPT-13018 Level 3 Est. Patient Joseph Pineda [facility] 22:18:20 CDT -[facility] CPT-68194 Level 3 Est. Patient Joseph Trivedi [facility] 16:46:04 CDT -[facility] CPT-34616 Level 3 Est. Patient Joseph Pineda [facility] 15:39:53 CDT -[facility] CPT-69761 Level 3 Est. Patient Maite Sanchez MD PhD [facility] 13:33:34 CDT -[facility] CPT-66132 Level 3 Est. Patient Joseph Pineda [facility] 11:37:08 CDT -[facility] CPT-47031 Level 3 Est. Patient Joseph Trivedi [facility] 17:13:29 ELECTRICIAN SUBSTATION -[facility]HC CPT-13500 Level 3 Est. Patient Joseph Pineda [facility] 18:42:44 CDT CPT-29593 Level 3 Est. Patient Joseph Pineda [facility] 16:25:39 CDT CPT-62797 Level 3 Est. Patient Casey Brower [facility] 09:52:45 CDT -[facility] CPT-19185 Level 3 Est. Patient Joseph Pienda [facility] 11:03:29 ELECTRICIAN SUBSTATION -[facility]HC CPT-20783 Level 3 Est. Patient Joseph Edwin [facility] 11:03:08 ELECTRICIAN SUBSTATION -[facility]HC CPT-71137 Level 3 Est. Patient Joseph Pineda [facility] 14:33:31 CDT -RHC CPT-02477 Level 3 Est. Patient [facility] 17:05:02 ELECTRICIAN SUBSTATION -[facility]HC CPT-75617 Level 3 Est. Patient Joseph Edwin [facility] 17:48:06 ELECTRICIAN SUBSTATION -[facility]HC CPT-62424 Level 3 Est. Patient [place]land Edwin [facility] 14:59:22 ELECTRICIAN SUBSTATION -RHC CPT-19095 Level 3 Est. Patient Joseph Edwin [facility] - 21:45:56 ELECTRICIAN SUBSTATION Jose [facility] CPT-28979 Level 3 Est. Patient Joseph Edwin [facility] 21:29:50 CDT -[facility]HC CPT-16976 Level 3 Est. Patient Joseph Edwin [facility] 12:41:09 CDT -[facility] Procedures Code Procedure Name Date Entry Date Standard Description CPT-79656 Venipuncture Draw Fee 08:55:49 ELECTRICIAN SUBSTATION
--- OUTSIDE RECORDS SUMMARY | 2016-11-20 13:56 | External Medical Summary | Clinical Summary ---
:1965 Author Organization [facility] Address [address] [place] [address] Phone Allergies, Adverse Reactions, Alerts Allergy Name Reaction Description Start Date Severity Status Provider NKDA Critical No Longer Indigo Sexton PEDIATRIC HOSPITALIST Active NKDA Critical Inactive Adrianna Elder Conditions [...] 464.00 Resolved Ismael Coyne [facility] without [facility] of obstruction Binge eating 307.51 Active Joseph Pineda Bulimia nervosa disorder 08/15 08/15 Farooq DO Routine V72.31 Active Jillina Routine gynecological 12/14 12/14 [place] gynecological examination PEDIATRIC HOSPITALIST examination Postmenopausal 627.1 Active Jillina Postmenopausal bleeding 12/14 12/14 [place] bleeding PEDIATRIC HOSPITALIST Screening for V76.51 Active Ismael Coyne Screening for malignant 12/26 12/26 Amandeep malignant neoplasms of MD neoplasms of colon colon Insomnia, 307.42 Active Indigo 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 PEDIATRIC HOSPITALIST disorder of initiating or maintaining sleep Establish care V68.89 Active Indigo Encounters for or get 01/16 01/18 [place] PEDIATRIC HOSPITALIST other specified acquainted administrative visit purpose Weakness, left 342.90 Active Indigo Hemiplegia, side of body 06/20 06/20 [place] PEDIATRIC HOSPITALIST unspecified, affecting unspecified side ABNORMAL VAGINAL ICD-626.9 [...] Name Instruction ATORVASTATIN 1 pill by ATORVASTATIN [id number] Active Indigo Active CALCIUM 10 MG mouth CALCIUM [place] TABS nightly, for PEDIATRIC HOSPITALIST cholesterol TROKENDI XR 1 tab daily TOPIRAMATE 28822099542 Active Indigo Active 100 MG ORAL [facility] [id number] PEDIATRIC HOSPITALIST ASPIRIN 81 MG 1 po qd ASPIRIN 68826050371 Active Indigo Active ORAL TABS [place] PEDIATRIC HOSPITALIST NITROFURANTOIN One capsule 2 NITROFURANTOIN 84332426535 No Indigo Active MONOHYD MACRO BID for UTI 0 MONOHYD MACRO Longer [place] 100 MG CAPS 1 Active PEDIATRIC HOSPITALIST 6 / 0 2 / 1 3 JANUVIA 100 MG 1 tablet by SITAGLIPTIN 02289803102 Active Indigo Active TABS mouth daily PHOSPHATE [place] PEDIATRIC HOSPITALIST METFORMIN HCL 2 tablets by METFORMIN HCL 10281612507 Active Indigo Active 500 MG TB24 mouth twice [place] daily PEDIATRIC HOSPITALIST TRAMADOL HCL 1/2 po tid 2 TRAMADOL HCL 42825785600 No Jillin Active 50 MG TABS with ES 0 Longer a Tylenol prn 1 Active [place] pain 5 l PEDIATRIC HOSPITALIST / 0 8 / 1 2 VYVANSE 20 MG 1 tablet 2 LISDEXAMFETAMI 77470494349 No Jillin Active ORAL CAPS daily for 0 NE DIMESYLATE Longer a binge eating 1 Active [place] disorder 5 l PEDIATRIC HOSPITALIST / 0 8 / 1 2 LASIX 20 MG 2 tablet by FUROSEMIDE 87758884484 Active Joseph Active TAB mouth daily W [place] DO CELEBREX 200 1 tablet by CELECOXIB 18991389239 Active Joseph Active MG CAPS mouth daily [place] with meals DO PREDNISONE 20 2 tablets 2 PREDNISONE 48709733471 No Joseph Active MG TAB today, then 0 Longer [place] 1 tablet 1 Active DO days 2-4 5 / 0 4 / 3 DIFLUCAN 100 1 tablet by 2 FLUCONAZOLE 79096777597 No Joseph Active MG TAB mouth daily 0 Longer [place] x 3 days 1 Active DO 5 / 0 3 AMARYL 1 MG 1 tablet GLIMEPIRIDE 34194984469 Active Joseph Active ORAL TABS orally twice [place] daily DO DIFLUCAN 100 1 tablet by 2 FLUCONAZOLE 21891914647 No Joseph Active MG TABS mouth every 0 Longer [place] other day 1 Active DO for 2 doses 5 / 0 1 / 2 3 ZOFRAN 4 MG 1 po q6hr ONDANSETRON 19877388095 Active Joseph Active TABS PRN Nausea HCL [place] DO PREDNISONE 20 2 tabs daily 2 PREDNISONE 63742150528 No Joseph Active MG TAB for 3 days, 0 Longer [place] 1 tab daily 1 Active DO for 3 days, 4 1/2 tab / daily for 2 1 days 0 / 2 5 AMOXICILLIN 2 po BID x 2 AMOXICILLIN 61460670105 No Maite C Active 500 MG CAPS 10 days 0 Longer Madril 1 Active PhD 0 / 2 0 LISINOPRIL 20 1 tablet by 2 LISINOPRIL 48807703592 No Maite C Active MG TABS mouth daily 0 Longer Madril 1 Active PhD 0 / 1 0 POTASSIUM 2 capsule by 2 POTASSIUM 67270146370 No Joseph Active CHLORIDE CR 10 mouth daily 0 CHLORIDE Longer [place] MEQ CPCR 1 Active DO 4 / 0 8 / 2 9 SPIRONOLACTONE 1 tablet by 2 SPIRONOLACTONE 88119527814 No Joseph Active 25 MG TAB mouth daily 0 Longer [place] 1 Active DO 4 / 0 8 / 2 9 METFORMIN HCL 1 tablet by 2 METFORMIN HCL 05729276123 No Joseph Active 500 MG TABS mouth twice 0 Longer [place] daily 1 Active DO 4 / 0 8 / 2 9 AMARYL 1 MG 1 tab twice 2 GLIMEPIRIDE 63198993196 No Joseph Active TABS daily 0 Longer [place] 1 Active DO 4 / 0 8 / 2 9 PHENTERMINE 1 po q am 2 PHENTERMINE 58066893806 No Joseph Active HCL 37.5 MG for wt. loss 0 HCL Longer [place] TABS 1 Active DO 3 / 1 2 / 2 3 PROMETHAZINE 1 tab by 2 PROMETHAZINE 73250033326 No Joseph Active HCL 25 MG TABS mouth every 0 HCL Longer [place] 6 hours as 1 Active DO needed 3 / 0 9 / 0 9 CIPROFLOXACIN Take one (1) 2 CIPROFLOXACIN 75730565254 No Joseph Active HCL 500 MG tablet by 0 HCL Longer [place] TABS mouth twice 1 Active DO a day 3 / 0 9 / 0 9 ABILIFY 5 MG one p.o. q. 2 ARIPIPRAZOLE 92168963214 No Joseph Active TABS day 0 Longer [place] 1 Active DO 3 / 0 9 / 0 9 HYDROCHLOROTHI 2 tabs every 2 HYDROCHLOROTHI 21099134203 No Joseph Active AZIDE 25 MG morning 0 AZIDE Longer [place] TABS 1 Active DO 3 / 0 6 / 2 7 ABILIFY 2 MG 1 po q hs 2 ARIPIPRAZOLE 71240155033 No Joseph Active TABS for major 0 Longer [place] depression 1 Active DO 3 / 0 5 / 0 7 ADIPEX-P 37.5 1/2 tab po q 2 PHENTERMINE 57309284544 No Casey Active MG CAPS am for 0 HCL Longer Philpot weight loss 1 Active PA 3 / 0 5 / 0 1 CIPRO 500 MG 1 tablet by 2 CIPROFLOXACIN 63941327264 No Casey Active TAB mouth twice 0 HCL Longer Philpot daily 1 Active PA 3 / 0 5 / 0 1 NECON 1/35 1 po daily 2 NORETHINDRONE- 92330810431 No Casey Active (28) 1-35 0 ETH ESTRADIOL Longer Leonarda MG-MCG TABS 1 Active PA 3 / 0 5 / 0 1 TRAMADOL HCL 1 po tid 2 TRAMADOL HCL 76375519400 No Casey Active 50 MG TABS with ES 0 Longer Philpot Tylenol 1 Active PA 3 / 0 5 / 0 1 FLUCONAZOLE one p.o. q. 2 FLUCONAZOLE 53292267504 No Casey Active 100 MG TABS day 2 days 0 Longer Philpot 1 Active PA 3 / 0 5 / 0 1 POTASSIUM 1 capsule by 2 POTASSIUM 48031300182 No Casey Active CHLORIDE CR 10 mouth daily 0 CHLORIDE Longer Philpot MEQ CPCR 1 Active PA 3 / 0 5 / 0 1 IMIPRAMINE HCL Take 6 IMIPRAMINE HCL 40249099328 Active Joseph Active 50 MG TABS tablets by W [place] mouth at DO bedtime DIFLUCAN 100 1 tablet by 2 FLUCONAZOLE 07250681743 No Joseph Active MG TAB mouth daily 0 Longer [place] 1 Active DO 2 / 0 2 / 2 4 METOPROLOL 1/2 tab po METOPROLOL 68065490564 Active Joseph Active TARTRATE 25 MG bid TARTRATE [place] TABS DO VERAPAMIL HCL 2 po bid VERAPAMIL HCL 26519930719 Active Joseph Active CR 120 MG TAB [place] CR DO PERMETHRIN 5 % apply neck 2 PERMETHRIN 51367826747 No Joseph Active CREA to toes 0 Longer [place] tonight and 1 Active DO then rinse 2 off in / morning. 0 repeat at 7 1 days / 2 0 SEROQUEL XR 50 one p.o. q. 2 QUETIAPINE 29677601315 No Joseph Active MG [id number] evening 0 FUMARATE Longer [place] 1 Active DO 2 / 0 1 / 2 0 TRAMADOL HCL 1-2 tablets 2 TRAMADOL HCL 23466425543 No Joseph Active 50 MG TABS every 6-8 0 Longer [place] hours as 1 Active DO needed for 2 pain / 0 1 / 2 0 ALPRAZOLAM 3 one p.o. ALPRAZOLAM 37536061325 Active Indigo Active MG [id number] q.h.s. [place] PEDIATRIC HOSPITALIST ALPRAZOLAM XR Take 1 2 ALPRAZOLAM 38895085747 No Joseph Active [id number] tablet by 0 [id number] Longer [place] mouth at 1 Active DO bedtime 1 / 2 9 DIFLUCAN 100 1 tablet by 2 FLUCONAZOLE 54843994851 No Joseph Active MG TAB mouth daily 0 Longer [place] 1 Active DO 0 / 0 6 AMBIEN 10 MG 1 tab by ZOLPIDEM 00996564474 Active Joseph Active TAB mouth at TARTRATE W Far[place]q bedtime as DO needed for sleep DIFLUCAN 100 1 tablet DIFLUCAN 557054 FLUCONAZOLE Inactive MG TAB by mouth 100 MG TAB daily ALPRAZOLAM Take 1 ALPRAZOLAM ALPRAZOLAM Inactive XR [id number] tablet by XR [id number] mouth at [id number] bedtime TRAMADOL HCL 1-2 TRAMADOL 702161 TRAMADOL HCL Inactive 50 MG TABS tablets HCL 50 MG every 6-8 TABS hours as needed for pain SEROQUEL XR one p.o. SEROQUEL XR QUETIAPINE Inactive 50 MG q. 50 MG FUMARATE [id number] evening [id number] PERMETHRIN 5 apply PERMETHRIN 510906 PERMETHRIN Inactive % CREA neck to 5 % CREA toes tonight and then rinse off in morning. repeat at 7 days DIFLUCAN 100 1 tablet DIFLUCAN 106406 FLUCONAZOLE Inactive MG TAB by mouth 100 MG TAB daily POTASSIUM 1 capsule POTASSIUM POTASSIUM Inactive CHLORIDE CR by mouth CHLORIDE CR CHLORIDE 10 MEQ CPCR daily 10 MEQ CPCR FLUCONAZOLE one p.o. FLUCONAZOLE 519540 FLUCONAZOLE Inactive 100 MG TABS q. day 2 100 MG TABS days TRAMADOL HCL 1 po tid TRAMADOL 361171 TRAMADOL HCL Inactive 50 MG TABS with ES HCL 50 MG Tylenol TABS NECON 1/35 1 po NECON /35 NORETHINDRONE- Inactive (28) 1-35 daily (28) 1-35 ETH ESTRADIOL MG-MCG TABS MG-MCG TABS CIPRO 500 MG 1 tablet CIPRO 500 752064 CIPROFLOXACIN Inactive TAB by mouth MG TAB HCL twice daily ADIPEX-P 1/2 tab ADIPEX-P 593132 PHENTERMINE Inactive 37.5 MG CAPS po q am 37.5 MG HCL for CAPS weight loss ABILIFY 2 MG 1 po q hs ABILIFY 2 063227 ARIPIPRAZOLE Inactive TABS for major MG TABS depressio n HYDROCHLOROT 2 tabs HYDROCHLORO 402497 HYDROCHLOROTHI Inactive HIAZIDE 25 every THIAZIDE 25 AZIDE MG TABS morning MG TABS ABILIFY 5 MG one p.o. ABILIFY 5 790913 ARIPIPRAZOLE Inactive TABS q. day MG TABS CIPROFLOXACI Take one CIPROFLOXAC 825812 CIPROFLOXACIN Inactive N HCL 500 MG (1) IN HCL 500 HCL TABS tablet by MG TABS mouth twice a day PROMETHAZINE 1 tab by PROMETHAZIN 811296 PROMETHAZINE Inactive HCL 25 MG mouth E HCL 25 MG HCL TABS every 6 TABS hours as needed PHENTERMINE 1 po q am PHENTERMINE 026350 PHENTERMINE Inactive HCL 37.5 MG for wt. HCL 37.5 MG HCL TABS loss TABS AMARYL 1 MG 1 tab AMARYL 1 MG 249108 GLIMEPIRIDE Inactive TABS twice TABS daily METFORMIN 1 tablet METFORMIN 531549 METFORMIN HCL Inactive HCL 500 MG by mouth HCL 500 MG TABS twice TABS daily SPIRONOLACTO 1 tablet SPIRONOLACT 038833 SPIRONOLACTONE Inactive NE 25 MG TAB by mouth ONE 25 MG daily TAB POTASSIUM 2 capsule POTASSIUM POTASSIUM Inactive CHLORIDE CR by mouth CHLORIDE CR CHLORIDE 10 MEQ CPCR daily 10 MEQ CPCR LISINOPRIL 1 tablet LISINOPRIL 037088 LISINOPRIL Inactive 20 MG TABS by mouth 20 MG TABS daily DIFLUCAN 100 1 tablet DIFLUCAN 758387 FLUCONAZOLE Inactive MG TABS by mouth 100 MG TABS every other day for 2 doses DIFLUCAN 100 1 tablet DIFLUCAN 654774 FLUCONAZOLE Inactive MG TAB by mouth 100 MG TAB daily x 3 days PREDNISONE 2 tablets PREDNISONE 370241 PREDNISONE Inactive 20 MG TAB today, 20 MG TAB then 1 tablet days 2-4 VYVANSE 20 1 tablet VYVANSE 20 LISDEXAMFETAMI Inactive MG ORAL CAPS daily for MG ORAL NE DIMESYLATE binge CAPS eating disorder TRAMADOL HCL 1/2 po TRAMADOL 754574 TRAMADOL HCL Inactive 50 MG TABS tid with HCL 50 MG ES TABS Tylenol prn pain AMOXICILLIN 2 po BID AMOXICILLIN 215110 AMOXICILLIN Inactive 500 MG CAPS x 10 days 500 MG CAPS PREDNISONE 2 tabs PREDNISONE 718472 PREDNISONE Inactive 20 MG TAB daily for 20 MG TAB 3 days, 1 tab daily for 3 days, 1/2 tab daily for 2 days NITROFURANTO One NITROFURANT 5189397 NITROFURANTOIN Inactive IN MONOHYD capsule OIN MONOHYD [...] HGBA1C - Chemistry sodium, serum 140 mmol/L 328-728 0925/04/13 potassium, serum 3.9 mmol/L 3.5-5.2 chloride, serum [...] 198 10^3/MM^3 10*3/mm3 142-424 Lab Report: Chlamydia/GC [id number] - Lab chlamydia DNA probe NOT DETECTED NOT DETECTED Lab Report: Chlamydia/GC APTIMA/[id number] - Microbiology Neisseria gonorrhoeae DNA probe NOT DETECTED NOT DETECTED Lab Report: Comp. Metabolic Panel, Lipid Panel - Chemistry sodium, serum 136 mmol/L 801-981 6921/01/04 carbon dioxide, venous blood 27.0 mmol/L 21.0-32.0 potassium, serum 4.6 mmol/L 3.5-5.2 chloride, serum 98 mmol/L 98-107 blood glucose 174 mg/dL 65-110 urea nitrogen, blood 12 mg/dL 7-18 creatinine, serum 0.78 mg/dL 0.55-1.30 alanine aminotransferase (SGPT), serum 65 U/L 12-78 aspartate aminotransferase (SGOT), serum 34 U/L 15-37 calcium, serum 8.9 mg/dL 8.5-10.1 bilirubin, serum, total 0.40 mg/dL 0.00-1.00 cholesterol, serum 219 mg/dL 870-869 5181/01/04 triglyceride, serum, fasting 214 mg/dL 30-200 HDL [...] mg/g mg/g{creat} 0-29 sodium, serum 140 mmol/L 133-712 2090/07/21 potassium, serum 3.9 mmol/L 3.5-5.2 chloride, serum [...] 142-424 Encounters Code Encounter Date Provider Facility CPT-72515 Level 3 Est. Patient Indigo Sexton APRN [facility] 18:59:38 CDT CPT-45098 Level 3 Est. Patient [facility] 14:42:12 CDT -RHC CPT-64868 Level 3 Est. Patient [place] [facility] 22:18:20 CDT -RHC CPT-13918 Level 3 Est. Patient [facility] 16:46:04 CDT -RHC CPT-14834 Level 3 Est. Patient [facility] 15:39:53 CDT -RHC CPT-62008 Level 3 Est. Patient Maite Sanchez MD [facility] 13:33:34 CDT -RHC CPT-35532 Level 3 Est. Patient [facility] 11:37:08 CDT -RHC CPT-65459 Level 3 Est. 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 Patient [place] [facility] 18:42:44 CDT CPT-73231 Level 3 Est. Patient [facility] 16:25:39 CDT CPT-53971 Level 3 Est. Patient Casey ARCHIBALD [facility] 09:52:45 CDT -RHC CPT-23895 Level 3 Est. 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 Patient [facility] 11:03:08 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 CLERK -RHC CPT-39484 Level 3 Est. Patient [facility] 14:33:31 CDT -RHC CPT-29253 Level [address] [facility] 17:05:02 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 CLERK -[facility] CPT-63734 Level [address] [facility] 17:48:06 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 CLERK -[facility] CPT-84875 Level [address] Joseph [address] [facility] 14:59:22 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 CLERK -C CPT-84867 Level 3 Est. Patient Joseph [facility] - 21:45:56 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 CLERK [facility] CPT-62069 Level 3 Est. Patient [facility] 21:29:50 CDT -[facility] CPT-00918 Level 3 Est. 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
--- OUTSIDE RECORDS SUMMARY | 2016-11-20 13:57 | External Medical Summary | Clinical Summary ---
:1965 Author Organization [facility] Address [address] [place] [address] Phone Allergies, Adverse Reactions, Alerts Allergy Name [...] ONEAL laryngitis PhD without mention of obstruction ABNORMAL VAGINAL ICD-626.9 Inactive Maite Sanchez BLEEDING PhD SCABIES ICD-133.0 Inactive Maite Sanchez PhD OTH GENERAL ICD-V70.3 Inactive Maite Sanchez MEDICAL PhD EXAMINATION ADMIN PURPOSES OTHER ABNORMAL ICD-790.29 Inactive Maite Sanchez GLUCOSE PhD ACUTE BRONCHITIS ICD-466.0 Inactive Maite Sanchez PhD Medication List Medication Instructions Start Stop Generic NDC Status Provider Patient Date Date Name Instruction AMARYL 1 MG 1 tablet GLIMEPIRIDE 10003686349 Active Joseph Pineda Active ORAL TABS orally Farooq DO twice daily METFORMIN 1 tablet METFORMIN HCL 14785454037 Active Joseph Pineda Active HCL 500 MG daily for Farooq DO TB24 blood sugars DIFLUCAN 100 1 tablet by 2 FLUCONAZOLE 06207715839 No Joseph Pineda Active MG TABS mouth every 0 Longer Farooq DO other day 1 Active for 2 doses 5 / 0 1 / 2 3 ZOFRAN 4 MG 1 po q6hr ONDANSETRON HCL 16907929645 Active Joseph Pineda Active TABS PRN Nausea Farooq DO DIFLUCAN 100 1 tablet by FLUCONAZOLE 35604277472 Active Joseph Pineda Active MG TAB mouth daily Farooq DO x 3 days PREDNISONE 2 tabs 2 PREDNISONE 43657722943 No Joseph Pineda Active 20 MG TAB daily for 3 0 Longer Farooq DO days, 1 tab 1 Active daily for 3 4 days, 1/2 / tab daily 1 for 2 days 0 / 2 5 PREDNISONE 2 tablets PREDNISONE 85353968916 Active Joseph Pineda Active 20 MG TAB today, then Farooq DO 1 tablet days 2-4 TRAMADOL HCL 1/2 po tid TRAMADOL HCL 60754770774 Active Joseph Pineda Active 50 MG TABS with ES Farooq DO Tylenol prn pain AMOXICILLIN 2 po BID x 2 AMOXICILLIN 07722634207 No Maite C Active 500 MG CAPS 10 days 0 Longer Madril 1 Active PhD 0 / 2 0 LISINOPRIL 1 tablet by 2 LISINOPRIL 16827660261 No Maite C Active 20 MG TABS mouth 0 Longer Madril daily 1 Active PhD 0 0 POTASSIUM 2 capsule 2 POTASSIUM 21995924220 No Joseph Pineda Active CHLORIDE CR by mouth 0 CHLORIDE Longer Farooq DO 10 MEQ CPCR daily 1 Active 4 / 0 8 / 2 9 SPIRONOLACTO 1 tablet by 2 SPIRONOLACTONE 62193339567 No Joseph Pineda Active NE 25 MG TAB mouth daily 0 Longer Farooq DO 1 Active 4 / 0 8 / 2 9 METFORMIN 1 tablet 2 METFORMIN HCL 36589020642 No Joseph Pineda Active HCL 500 MG by mouth 0 Longer Farooq DO TABS twice daily 1 Active 4 / 0 8 / 2 9 AMARYL 1 MG 1 tab twice 2 GLIMEPIRIDE 81625885582 No Joseph Pineda Active TABS daily 0 Longer Farooq DO 1 Active 4 / 0 8 / 2 9 PHENTERMINE 1 po q am 2 PHENTERMINE HCL 94708034622 No Joseph Pineda Active HCL 37.5 MG for wt. 0 Longer Farooq DO TABS loss 1 Active 3 / 1 2 / 2 3 PROMETHAZINE 1 tab by 2 PROMETHAZINE HCL 19053020468 No Joseph Pineda Active HCL 25 MG mouth every 0 Longer Farooq DO TABS 6 hours as 1 Active needed 3 / 0 9 / 0 9 CIPROFLOXACI Take one 2 CIPROFLOXACIN 66514055610 No Joseph W Active N HCL 500 MG (1) tablet 0 HCL Longer Farooq DO TABS by mouth 1 Active twice a day 3 / 0 9 / 0 9 ABILIFY 5 MG one p.o. q. 2 ARIPIPRAZOLE 82423981367 No Joseph W Active TABS day 0 Longer Farooq DO 1 Active 3 / 0 9 / 0 9 LASIX 20 MG 1 tablet by FUROSEMIDE 75719070624 Active Joseph W Active TAB mouth daily Farooq DO HYDROCHLOROT 2 tabs 2 HYDROCHLOROTHIAZ 69135739644 No Joseph W Active HIAZIDE 25 every 0 TASHA Longer Farooq DO MG TABS morning 1 Active 3 / 0 6 / 2 7 ABILIFY 2 MG 1 po q hs 2 ARIPIPRAZOLE 22911809823 No Joseph W Active TABS for major 0 Longer Farooq DO depression 1 Active 3 / 0 5 / 0 7 ADIPEX-P 1/2 tab po 2 PHENTERMINE HCL 60815784997 No Casey Active 37.5 MG CAPS q am for 0 Longer Leonarda weight loss 1 Active PA 3 / 0 5 / 0 1 CIPRO 500 MG 1 tablet by 2 CIPROFLOXACIN 89616605229 No Casey Active TAB mouth twice 0 HCL Longer [place] daily 1 Active PA 3 / 0 5 / 0 1 NECON 1/35 1 po daily 2 NORETHINDRONE-ET 32916155110 No Casey Active (28) 1-35 0 H ESTRADIOL Longer [place] MG-MCG TABS 1 Active PA 3 / 0 5 / 0 1 TRAMADOL HCL 1 po tid 2 TRAMADOL HCL 47987488296 No Casey Active 50 MG TABS with ES 0 Longer Leonarda Tylenol 1 Active PA 3 / 0 5 / 0 1 FLUCONAZOLE one p.o. q. 2 FLUCONAZOLE 17102518706 No Casey Active 100 MG TABS day 2 days 0 Longer [place] 1 Active PA 3 / 0 5 / 0 1 POTASSIUM 1 capsule 2 POTASSIUM 83226734306 No Casey Active CHLORIDE CR by mouth 0 CHLORIDE Longer Leonarda 10 MEQ CPCR daily 1 Active PA 3 / 0 5 / 0 1 IMIPRAMINE Take 6 IMIPRAMINE HCL 14818249013 Active Maite C Active HCL 50 MG tablets by Madril TABS mouth at MD PhD bedtime DIFLUCAN 100 1 tablet by 2 FLUCONAZOLE 79011096892 No Joseph W Active MG TAB mouth daily 0 Longer Farooq DO 1 Active 2 / 0 2 / 2 4 METOPROLOL 1/2 tab po METOPROLOL 76953535813 Active Joseph W Active TARTRATE 25 bid TARTRATE Farooq DO MG TABS VERAPAMIL 2 po bid VERAPAMIL HCL 09095630412 Active Joseph W Active HCL CR 120 Farooq DO MG TAB CR PERMETHRIN 5 apply neck 2 PERMETHRIN 65922341284 No Joseph W Active % CREA to toes 0 Longer Farooq DO tonight and 1 Active then rinse 2 off in / morning. 0 repeat at 7 1 days / 2 0 SEROQUEL XR one p.o. q. 2 QUETIAPINE 10349034407 No Joseph W Active 50 MG evening 0 FUMARATE Longer Farooq DO [id number]-[id number] 1 Active 2 / 0 1 / 2 0 TRAMADOL HCL 1-2 tablets 2 TRAMADOL HCL 04548896660 No Joseph W Active 50 MG TABS every 6-8 0 Longer Farooq DO hours as 1 Active needed for 2 pain / 0 1 / 2 0 ALPRAZOLAM 3 one p.o. ALPRAZOLAM 54823144748 Active Joseph W Active MG [id number] q.h.s. Farooq DO ALPRAZOLAM Take 1 2 ALPRAZOLAM 78470755925 No Joseph W Active XR [id number] tablet by 0 [id number] Longer Farooq DO mouth at 1 Active bedtime 1 / 2 9 DIFLUCAN 100 1 tablet by 2 FLUCONAZOLE 12983740521 No Joseph W Active MG TAB mouth daily 0 Longer Farooq DO 1 Active 0 / 0 6 AMBIEN 10 MG 1 tab by ZOLPIDEM 23245782859 Active Joseph W Active TAB mouth at TARTRATE Farooq DO bedtime as needed for sleep DIFLUCAN 100 1 tablet DIFLUCAN 989210 FLUCONAZOLE Inactive MG TAB by mouth 100 MG TAB daily ALPRAZOLAM Take 1 ALPRAZOLAM ALPRAZOLAM Inactive XR [id number] tablet by XR [id number] mouth at CL42G-NDU bedtime TRAMADOL HCL 1-2 TRAMADOL 272197 TRAMADOL HCL Inactive 50 MG TABS tablets HCL 50 MG every 6-8 TABS hours as needed for pain SEROQUEL XR one p.o. SEROQUEL XR QUETIAPINE Inactive 50 MG q. evening 50 MG FUMARATE [id number]-XAR PERMETHRIN 5 apply neck PERMETHRIN 459987 PERMETHRIN Inactive % CREA to toes 5 % CREA tonight and then rinse off in morning. repeat at 7 days DIFLUCAN 100 1 tablet DIFLUCAN 380551 FLUCONAZOLE Inactive MG TAB by mouth 100 MG TAB daily POTASSIUM 1 capsule POTASSIUM POTASSIUM Inactive CHLORIDE CR by mouth CHLORIDE CR CHLORIDE 10 MEQ CPCR daily 10 MEQ CPCR FLUCONAZOLE one p.o. FLUCONAZOLE 19760111 FLUCONAZOLE Inactive 100 MG TABS q. day 2 100 MG TABS days TRAMADOL HCL 1 po tid TRAMADOL 271410 TRAMADOL HCL Inactive 50 MG TABS with ES HCL 50 MG Tylenol TABS NECON 1/35 1 po daily NECON 1/35 NORETHINDRONE- Inactive (28) 1-35 (28) 1-35 ETH ESTRADIOL MG-MCG TABS MG-MCG TABS CIPRO 500 MG 1 tablet CIPRO 500 173127 CIPROFLOXACIN Inactive TAB by mouth MG TAB HCL twice daily ADIPEX-P 1/2 tab po ADIPEX-P 562343 PHENTERMINE Inactive 37.5 MG CAPS q am for 37.5 MG HCL weight CAPS loss ABILIFY 2 MG 1 po q hs ABILIFY 2 ARIPIPRAZOLE Inactive TABS for major MG TABS depression HYDROCHLOROT 2 tabs HYDROCHLORO 140236 HYDROCHLOROTHI Inactive HIAZIDE 25 every THIAZIDE 25 AZIDE MG TABS morning MG TABS ABILIFY 5 MG one p.o. ABILIFY 5 ARIPIPRAZOLE Inactive TABS q. day MG TABS CIPROFLOXACI Take one CIPROFLOXAC 920808 CIPROFLOXACIN Inactive N HCL 500 MG (1) tablet IN HCL 500 HCL TABS by mouth MG TABS twice a day PROMETHAZINE 1 tab by PROMETHAZIN 113853 PROMETHAZINE Inactive HCL 25 MG mouth E HCL 25 MG HCL TABS every 6 TABS hours as needed PHENTERMINE 1 po q am PHENTERMINE 449103 PHENTERMINE Inactive HCL 37.5 MG for wt. HCL 37.5 MG HCL TABS loss TABS AMARYL 1 MG 1 tab AMARYL 1 MG 433829 GLIMEPIRIDE Inactive TABS twice TABS daily METFORMIN 1 tablet METFORMIN 313759 METFORMIN HCL Inactive HCL 500 MG by mouth HCL 500 MG TABS twice TABS daily SPIRONOLACTO 1 tablet SPIRONOLACT 282837 SPIRONOLACTONE Inactive NE 25 MG TAB by mouth ONE 25 MG daily TAB POTASSIUM 2 capsule POTASSIUM POTASSIUM Inactive CHLORIDE CR by mouth CHLORIDE CR CHLORIDE 10 MEQ CPCR daily 10 MEQ CPCR LISINOPRIL 1 tablet LISINOPRIL 820734 LISINOPRIL Inactive 20 MG TABS by mouth 20 MG TABS daily DIFLUCAN 100 1 tablet DIFLUCAN 657971 FLUCONAZOLE Inactive MG TABS by mouth 100 MG TABS every other day for 2 doses AMOXICILLIN 2 po BID x AMOXICILLIN 360849 AMOXICILLIN Inactive 500 MG CAPS 10 days 500 MG CAPS PREDNISONE 2 tabs PREDNISONE 356549 PREDNISONE Inactive 20 MG TAB daily for [...] Panel - Chemistry sodium, serum 137 mmol/L 638-394 5307/08/29 potassium, serum 4.1 mmol/L 3.5-5.2 chloride, serum 100 mmol/L 98-107 carbon dioxide, venous blood 31.1 mmol/L 21.0-32.0 blood glucose 138 mg/dL 65-110 calcium, serum 9.2 mg/dL 8.5-10.1 urea nitrogen, blood 9 mg/dL 7-18 creatinine, serum 0.80 mg/dL 0.60-1.30 Lab Report: HGBA1C - Chemistry hemoglobin A1C, blood, as % of total hemoglobin 6.1 % 4.3-6.0 Encounters Code Encounter Date Provider Facility CPT-79465 Level 3 Est. Patient Joseph Trivedi DO [facility] 15:39:53 [facility] CPT-38274 Level 3 Est. Patient Maite Sanchez MD [facility] 13:33:34 CDT -[facility] CPT-72084 Level 3 Est. Patient Joseph Pineda [facility] 11:37:08 CDT -[facility] CPT-18253 Level 3 Est. Patient Joseph Pineda [facility] 17:13:29 [employer] -[facility] CPT-58769 Level 3 Est. Patient Joseph Pineda [facility] 18:42:44 CDT CPT-92430 Level 3 Est. Patient Joseph Pineda [facility] 16:25:39 CDT CPT-90005 Level 3 Est. Patient Casey ARCHIBALD [facility] 09:52:45 CDT -[facility] CPT-46891 Level 3 Est. Patient Joseph Pineda [facility] 11:03:29 [employer]THAND TE[employer] -[facility] CPT-56316 Level 3 Est. Patient Joseph Pineda [facility] 11:03:08 [employer] TE[employer] -[facility] CPT-37528 Level 3 Est. Patient [place] Edwin [facility] 14:33:31 CDT -[facility] CPT-17257 Level 3 Est. Patient Joseph Edwin [facility] 17:05:02 [employer] TE[employer] -[facility] CPT-61247 Level 3 Est. Patient Joseph Edwin [facility] 17:48:06 [employer] -[facility] CPT-19035 Level 3 Est. Patient Joseph Edwin [facility] 14:59:22 [employer] TE[employer] -[facility] CPT-37268 Level 3 Est. 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 Patient Joseph Edwin [facility] 21:29:50 CDT -[facility] CPT-40345 Level 3 Est. 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
--- OUTSIDE RECORDS SUMMARY | 2016-11-20 13:57 | External Medical Summary | Clinical Summary ---
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 Screening for V76.51 Active Ismael Coyne Screening [...] Date Name Instruction TRAMADOL 1/2 po TRAMADOL 53342709505 No Jillina Active HCL 50 MG tid with HCL Longer [place] TABS ES Active 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 Tylenol prn pain VYVANSE 20 1 tablet LISDEXAMF 68646328520 No Jillina Active MG ORAL daily for ETAMINE Longer [place] CAPS binge DIMESYLAT Active 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 eating E disorder METFORMIN 2 tablet METFORMIN 98432750547 Active Joseph Pineda Active HCL 500 MG daily for HCL Farooq DO TB24 blood sugars LASIX 20 2 tablet FUROSEMID 14470793205 Active Joseph Pineda Active MG TAB by mouth E Farooq DO daily CELEBREX 1 tablet CELECOXIB 39707996820 Active Joseph Pineda Active 200 MG by mouth Farooq DO CAPS daily with meals PREDNISONE 2 tablets PREDNISON 13093216488 No Joseph Pineda Active 20 MG TAB today, E Longer Farooq DO then 1 Active tablet days 2-4 DIFLUCAN 1 tablet FLUCONAZO 91620197942 No Joseph Pineda Active 100 MG TAB by mouth LE Longer Farooq DO daily x 3 Active days AMARYL 1 1 tablet GLIMEPIRI 09007301347 Active Joseph Pineda Active MG ORAL orally DE Farooq DO TABS twice daily DIFLUCAN 1 tablet FLUCONAZO 66690934184 No Joseph Pineda Active 100 MG by mouth LE Longer Farooq DO TABS every Active other day for 2 doses ZOFRAN 4 1 po q6hr ONDANSETR 33979096251 Active Bam Pineda Active MG TABS PRN ON HCL [place] Nausea PREDNISONE 2 tabs PREDNISON 89421738113 No Joseph Pineda Active 20 MG TAB daily for E Longer Farooq DO 3 days, 1 Active tab daily for 3 days, 1/2 tab daily for 2 days AMOXICILLI 2 po BID AMOXICILL 98418743104 No Maite C Active N 500 MG x 10 days IN Longer Madril CAPS Active PhD LISINOPRIL 1 tablet LISINOPRI 44601512332 No Maite C Active 20 MG TABS by mouth L Longer Madril daily Active PhD POTASSIUM 2 capsule POTASSIUM 15899803809 No Joseph W Active CHLORIDE by mouth CHLORIDE Longer Farooq DO CR 10 MEQ daily Active CPCR SPIRONOLAC 1 tablet SPIRONOLA 78287440654 No Joseph W Active TONE 25 MG by mouth CTONE Longer Farooq DO TAB daily Active METFORMIN 1 tablet METFORMIN 79363626060 No Jospeh W Active HCL 500 MG by mouth HCL Longer Farooq DO TABS twice Active daily AMARYL 1 1 tab GLIMEPIRI 32014165457 No Joseph W Active MG TABS twice DE Longer Farooq DO daily Active PHENTERMIN 1 po q am PHENTERMI 79457749850 No Joseph W Active E HCL 37.5 for wt. NE HCL Longer Farooq DO MG TABS loss Active PROMETHAZI 1 tab by PROMETHAZ 03681605407 No Joseph W Active NE HCL 25 mouth INE HCL Longer Farooq DO MG TABS every 6 Active hours as needed CIPROFLOXA Take one CIPROFLOX 66081495024 No Joseph W Active DELORES HCL (1) ACIN HCL Longer Farooq DO 500 MG tablet by Active TABS mouth twice a day ABILIFY 5 one p.o. ARIPIPRAZ 54721666582 No Joseph W Active MG TABS q. day OLE Longer Farooq DO Active HYDROCHLOR 2 tabs HYDROCHLO 34909358436 No Jsoeph W Active OTHIAZIDE every ROTHIAZID Longer Farooq DO 25 MG TABS morning E Active ABILIFY 2 1 po q hs ARIPIPRAZ 33202011192 No Joseph W Active MG TABS for major OLE Longer Farooq DO depressio Active n ADIPEX-P 1/2 tab PHENTERMI 98455661539 No Casey Active 37.5 MG po q am NE HCL Longer [place] CAPS for Active PA weight loss CIPRO 500 1 tablet CIPROFLOX 29160298121 No Casey Active MG TAB by mouth ACIN HCL Longer [place] twice Active PA daily NECON 1/35 1 po NORETHIND 01521499635 No Casey Active (28) 1-35 daily LINDA-ETH Longer Leonard[place] MG-MCG ESTRADIOL Active PA TABS TRAMADOL 1 po tid TRAMADOL 80131896132 No Casey Active HCL 50 MG with ES HCL Longer [place] TABS Tylenol Active PA FLUCONAZOL one p.o. FLUCONAZO 64300416952 No Casey Active E 100 MG q. day 2 LE Longer Leonarda TABS days Active PA POTASSIUM 1 capsule POTASSIUM 63118926093 No Casey Active CHLORIDE by mouth CHLORIDE Longer [place] CR 10 MEQ daily Active PA CPCR IMIPRAMINE Take 6 IMIPRAMIN 11467828778 Active Joseph W Active HCL 50 MG tablets E HCL Farooq DO TABS by mouth at bedtime DIFLUCAN 1 tablet FLUCONAZO 66373222573 No Joseph W Active 100 MG TAB by mouth LE Longer Farooq DO daily Active METOPROLOL 1/2 tab METOPROLO 91536167611 Active Joseph W Active TARTRATE po bid L Farooq DO 25 MG TABS TARTRATE VERAPAMIL 2 po bid VERAPAMIL 17640942266 Active Joseph W Active HCL CR 120 HCL Farooq DO MG TAB CR PERMETHRIN apply PERMETHRI 08864886039 No Joseph W Active 5 % CREA neck to N Longer Farooq DO toes Active tonight and then rinse off in morning. repeat at 7 days SEROQUEL one p.o. QUETIAPIN 85370254774 No Joseph W Active XR 50 MG q. E Longer Farooq DO [id number] evening FUMARATE Active TRAMADOL 1-2 TRAMADOL 17118838843 No Joseph W Active HCL 50 MG tablets HCL Longer Farooq DO TABS every 6-8 Active hours as needed for pain ALPRAZOLAM one p.o. ALPRAZOLA 05878529958 Active Joseph W Active 3 MG q.h.s. M Farooq DO [id number]-WOB ALPRAZOLAM Take 1 ALPRAZOLA 31551410690 No Joseph W Active XR tablet by M Longer Farooq DO [id number]-HVE mouth at [id number] Active bedtime DIFLUCAN 1 tablet FLUCONAZO 21423058288 No Joseph W Active 100 MG TAB by mouth LE Longer Farooq DO daily Active AMBIEN 10 1 tab by ZOLPIDEM 88033713744 Active Joseph W Active MG TAB mouth at TARTRATE Farooq DO bedtime as needed for sleep DIFLUCAN 100 1 tablet DIFLUCAN 19760111 FLUCONAZOLE Inactive MG TAB by mouth 100 MG TAB daily ALPRAZOLAM Take 1 ALPRAZOLAM ALPRAZOLAM Inactive XR [id number] tablet by XR [id number] mouth at [id number] bedtime TRAMADOL HCL 1-2 TRAMADOL 081026 TRAMADOL HCL Inactive 50 MG TABS tablets HCL 50 MG every 6-8 TABS hours as needed for pain SEROQUEL XR one p.o. SEROQUEL XR QUETIAPINE Inactive 50 MG q. evening 50 MG FUMARATE [id number] PERMETHRIN 5 apply neck PERMETHRIN 661122 PERMETHRIN Inactive % CREA to toes 5 [...] days TRAMADOL HCL 1 po tid TRAMADOL 411548 TRAMADOL HCL Inactive 50 MG TABS with ES HCL 50 MG Tylenol TABS NECON 1 po daily NECON NORETHINDRONE- Inactive (28) 1-35 (28) 1-35 ETH ESTRADIOL MG-MCG TABS MG-MCG TABS CIPRO 500 MG 1 tablet CIPRO 500 551399 CIPROFLOXACIN Inactive TAB by mouth MG TAB HCL twice daily ADIPEX-P 1/2 tab po ADIPEX-P 517861 PHENTERMINE Inactive 37.5 MG CAPS q am for 37.5 MG HCL weight CAPS loss ABILIFY 2 MG 1 po q hs ABILIFY 2 435343 ARIPIPRAZOLE Inactive TABS for major MG TABS depression HYDROCHLOROT 2 tabs HYDROCHLORO 368167 HYDROCHLOROTHI Inactive HIAZIDE 25 every THIAZIDE 25 AZIDE MG TABS morning MG TABS ABILIFY 5 MG one p.o. ABILIFY 5 679991 ARIPIPRAZOLE Inactive TABS q. day MG TABS CIPROFLOXACI Take one CIPROFLOXAC 833675 CIPROFLOXACIN Inactive N HCL 500 MG (1) tablet IN HCL 500 HCL TABS by mouth MG TABS twice a day PROMETHAZINE 1 tab by PROMETHAZIN 960634 PROMETHAZINE Inactive HCL 25 MG mouth E HCL 25 MG HCL TABS every 6 TABS hours as needed PHENTERMINE 1 po q am PHENTERMINE 320807 PHENTERMINE Inactive HCL 37.5 MG for wt. HCL 37.5 MG HCL TABS loss TABS AMARYL 1 MG 1 tab AMARYL 1 MG 149831 GLIMEPIRIDE Inactive TABS twice TABS daily METFORMIN 1 tablet METFORMIN 792781 METFORMIN HCL Inactive HCL 500 MG by mouth HCL 500 MG TABS twice TABS daily SPIRONOLACTO 1 tablet SPIRONOLACT 925327 SPIRONOLACTONE Inactive NE 25 MG TAB by mouth ONE 25 MG daily TAB POTASSIUM 2 capsule POTASSIUM POTASSIUM Inactive CHLORIDE CR by mouth CHLORIDE CR CHLORIDE 10 MEQ CPCR daily 10 MEQ CPCR LISINOPRIL 1 tablet LISINOPRIL 397646 LISINOPRIL Inactive 20 MG TABS by mouth 20 MG TABS daily DIFLUCAN 100 1 tablet DIFLUCAN 206325 FLUCONAZOLE Inactive MG TABS by mouth 100 MG TABS every other day for 2 doses DIFLUCAN 100 1 tablet DIFLUCAN 968490 FLUCONAZOLE Inactive MG TAB by mouth 100 MG TAB daily x 3 days PREDNISONE 2 tablets PREDNISONE 176227 PREDNISONE Inactive 20 MG TAB today, 20 MG TAB then 1 tablet days 2-4 VYVANSE 20 1 tablet VYVANSE 20 LISDEXAMFETAMI Inactive MG ORAL CAPS daily for MG ORAL NE DIMESYLATE binge CAPS eating disorder TRAMADOL HCL 1/2 po tid TRAMADOL 444415 TRAMADOL HCL Inactive 50 MG TABS with ES HCL 50 MG Tylenol TABS prn pain AMOXICILLIN 2 po BID x AMOXICILLIN 248798 AMOXICILLIN Inactive 500 MG CAPS 10 days 500 MG CAPS PREDNISONE 2 tabs PREDNISONE 000033 PREDNISONE Inactive 20 MG TAB daily for 20 MG TAB 3 days, 1 tab daily for 3 days, 1/2 tab daily for 2 days Vital Signs Date Name Value Unit Range Description blood pressure, diastolic - 8462-4 92 mm[Hg] [...] E&M - 3141-9 234 [lb_av] Weight Measured Diagnostic Results Date Name Value Unit Range Description Lab Report: CBC, Comp. Metabolic Panel, HGBA1C - Chemistry sodium, serum 140 mmol/L 828-671 7458/04/13 potassium, serum 3.9 mmol/L 3.5-5.2 chloride, serum [...] 219 10^3/MM^3 10*3/mm3 142-424 Lab Report: Chlamydia/GC [id number] - Lab chlamydia DNA probe NOT DETECTED NOT DETECTED Lab Report: Chlamydia/GC APTIMA/[id number] - Microbiology Neisseria gonorrhoeae DNA probe NOT [...] mg/g mg/g{creat} 0-29 sodium, serum 140 mmol/L 691-992 2111/07/21 potassium, serum 3.9 mmol/L 3.5-5.2 chloride, serum [...] 142-424 Encounters Code Encounter Date Provider Facility CPT-37045 Level 3 Est. Patient Joseph Trivedi DO [facility] 14:42:12 CDT -[facility] CPT-83305 Level 3 Est. Patient Joseph Pineda [facility] 22:18:20 CDT -[facility] CPT-22329 Level 3 Est. Patient Joseph Pineda [facility] 16:46:04 CDT -[facility] CPT-18452 Level 3 Est. Patient Joseph Pineda [facility] 15:39:53 CDT -[facility] CPT-65889 Level 3 Est. Patient Maite Sanchez MD [facility] 13:33:34 CDT -RHC CPT-32402 Level [address] [facility] 11:37:08 CDT -[facility]HC CPT-07503 Level 3 Est. 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 Patient Joseph Edwin [facility] 18:42:44 CDT CPT-89326 Level 3 Est. Patient [place] Edwin [facility] 16:25:39 CDT CPT-25080 Level 3 Est. Patient Casey Brower [facility] 09:52:45 CDT -[facility] CPT-98184 Level 3 Est. 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 Patient Joseph Edwin [facility] 14:33:31 CDT -RHC CPT-25796 Level [address] 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 Patient Joseph Pineda [facility] 21:29:50 T -[facility] CPT-31992 Level 3 Est. 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
--- OUTSIDE RECORDS SUMMARY | 2016-11-20 13:57 | External Medical Summary | Clinical Summary ---
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 NKDA Critical Inactive Adrianna Elder Conditions [...] Indigo Other malaise 05/24 07/02 Yokum ENVIRONMENTAL HEALTH AND SAFETY LEADER and fatigue SLEEP APNEA, 327.23 Active Joseph [...] Resolved Indigo Hypopotassemia MILD 10/29 07/02 Yo ENVIRONMENTAL HEALTH AND SAFETY LEADER Diabetes, Type 250.00 Inactive Joseph Pineda Diabetes 2 06/27 06/27 Farooq DO mellitus without mention of complication, type II or unspecified type, not stated as uncontrolled Diabetes 250.02 Active Indigo Diabetes mellitus, type 06/27um ENVIRONMENTAL HEALTH AND SAFETY LEADER mellitus II, without mention uncontrolled of complication, [...] Resolved Indigo Routine gynecological 12/14 07/02 Yo ENVIRONMENTAL HEALTH AND SAFETY LEADER gynecological examination examination Postmenopausal 627.1 Resolved Indigo Postmenopausal bleeding 12/14 07/02 Youm ENVIRONMENTAL HEALTH AND SAFETY LEADER bleeding Screening for V76.51 Resolved Indigo Screening for malignant 12/26 07/02 Yokum ENVIRONMENTAL HEALTH AND SAFETY LEADER malignant neoplasms of neoplasms of colon colon Insomnia, 307.42 Active Indigo 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 ENVIRONMENTAL HEALTH AND SAFETY LEADER disorder of initiating or maintaining sleep Establish care V68.89 Resolved Indigo Encounters for or get 01/16 07/02 Yo ENVIRONMENTAL HEALTH AND SAFETY LEADER other specified acquainted administrative visit purpose Weakness, left 342.90 Active Indigo Hemiplegia, side of body 06/20 06/20 Yokum ENVIRONMENTAL HEALTH AND SAFETY LEADER unspecified, affecting unspecified side TIA 435.9 Active Indigo Unspecified 06/20 07/02 Yokum ENVIRONMENTAL HEALTH AND SAFETY LEADER transient cerebral ischemia Knee pain, 719.46 Active Indigo Pain in joint bilateral 06/20 07/02 Yokum ENVIRONMENTAL HEALTH AND SAFETY LEADER involving lower leg ABNORMAL VAGINAL ICD-626.9 Inactive Maite Sanchez BLEEDING PhD SCABIES ICD-133.0 Inactive Maite Sanchez PhD FATIGUE ICD-780.79 Inactive Indigo [facility] ENVIRONMENTAL HEALTH AND SAFETY LEADER OTH GENERAL ICD-V70.3 Inactive Maite Sanchez MEDICAL MD PhD EXAMINATION ADMIN PURPOSES OTHER ABNORMAL ICD-790.29 Inactive Maite Sanchez GLUCOSE PhD ACUTE BRONCHITIS ICD-466.0 Inactive Maite Sanchez PhD HYPOKALEMIA, MILD ICD-276.8 Inactive Indigo [employer] ENVIRONMENTAL HEALTH AND SAFETY LEADER Sinusitis, ICD-461.1 Inactive Ismael Coyne frontal, acute Amandeep ONEAL Laryngitis, acute ICD-464.00 Inactive Ismael Coyne Amandeep ONEAL Routine ICD-V72.31 Inactive Indigo Yokum gynecological ENVIRONMENTAL HEALTH AND SAFETY LEADER examination Postmenopausal ICD-627.1 Inactive Indigo [facility]um 2015 bleeding ENVIRONMENTAL HEALTH AND SAFETY LEADER Screening for ICD-V76.51 Inactive Indigo [facility]okum 2015 malignant ENVIRONMENTAL HEALTH AND SAFETY LEADER neoplasms of colon Establish care or ICD-V68.89 Inactive Indigo Yokum get acquainted ENVIRONMENTAL HEALTH AND SAFETY LEADER visit Medication List Medication Instructions Start Stop Generic NDC Status Provider Patient Date Date Name Instruction PIOGLITAZONE take PIOGLITAZONE 42875035386 Active Maliheh Active HCL 30 MG ORAL one a HCL Ziglari TABS day 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 JANUVIA 100 MG 1 2 SITAGLIPTIN 69639426225 No Indigo Active TABS tablet 0 PHOSPHATE Longer [facility] by 1 Active ENVIRONMENTAL HEALTH AND SAFETY LEADER mouth 6 daily / 0 2 / 6 ATORVASTATIN 1 pill ATORVASTATIN 26686545491 Active Indigo Active CALCIUM 10 MG by CALCIUM [facility] TABS mouth ENVIRONMENTAL HEALTH AND SAFETY LEADER nightly , for cholest diana TROKENDI XR 100 1 tab TOPIRAMATE 45880556555 Active Indigo Active MG ORAL daily [facility] [id number] ENVIRONMENTAL HEALTH AND SAFETY LEADER ASPIRIN 81 MG 1 po qd ASPIRIN 40374785347 Active Indigo Active ORAL TABS [facility] ENVIRONMENTAL HEALTH AND SAFETY LEADER NITROFURANTOIN One 2 NITROFURANTOIN 89575685679 No Indigo Active MONOHYD MACRO capsule 0 MONOHYD MACRO Longer [facility]um 100 MG CAPS BID for 1 Active ENVIRONMENTAL HEALTH AND SAFETY LEADER UTI 6 / 0 3 METFORMIN HCL 2 METFORMIN HCL 63243535669 Active Indigo Active 500 MG TB24 tablets [facility] by ENVIRONMENTAL HEALTH AND SAFETY LEADER mouth twice daily TRAMADOL HCL 50 1/2 po 2 TRAMADOL HCL 53820426453 No Jillina Active MG TABS tid 0 Longer Frazell with ES 1 Active ENVIRONMENTAL HEALTH AND SAFETY LEADER Tylenol 5 prn / pain 0 / 2 VYVANSE 20 MG 1 2 LISDEXAMFETAMIN 51498420751 No Jillina Active ORAL CAPS tablet 0 E DIMESYLATE Longer Frazell daily 1 Active ENVIRONMENTAL HEALTH AND SAFETY LEADER for 5 binge / eating 0 disorde 8 r / 1 2 LASIX 20 MG TAB 2 FUROSEMIDE 43618158658 Active Joseph W Active tablet Farooq DO by mouth daily CELEBREX 200 MG 1 CELECOXIB 50256073484 Active Joseph W Active CAPS tablet Farooq DO by mouth daily with meals PREDNISONE 20 2 2 PREDNISONE 14457115734 No Joseph W Active MG TAB tablets 0 Longer Farooq DO today, 1 Active then 1 5 tablet / days 0 2-4 4 3 DIFLUCAN 100 MG 1 2 FLUCONAZOLE 67825938917 No Joseph W Active TAB tablet 0 Longer Farooq DO by 1 Active mouth 5 daily x / 3 days 0 3 AMARYL 1 MG 1 GLIMEPIRIDE 56900581143 Active Joseph W Active ORAL TABS tablet Farooq DO orally twice daily DIFLUCAN 100 MG 1 2 FLUCONAZOLE 87011925528 No Joseph W Active TABS tablet 0 Longer Farooq DO by 1 Active mouth 5 every / other 0 day for 1 2 doses / 2 3 ZOFRAN 4 MG 1 po ONDANSETRON HCL 04962193717 Active Joseph W Active TABS q6hr Farooq DO PRN Nausea PREDNISONE 20 2 tabs 2 PREDNISONE 36897017796 No Joseph W Active MG TAB daily 0 Longer Farooq DO for 3 1 Active days, 1 4 tab / daily 1 for 3 0 days, / 1/2 tab 2 daily 5 for 2 days AMOXICILLIN 500 2 po 2 AMOXICILLIN 75681702812 No Maite C Active MG CAPS BID x 0 Longer Madril MD 10 days 1 Active PhD 4 / 1 0 / 2 0 LISINOPRIL 20 1 2 LISINOPRIL 92456488287 No Maite C Active MG TABS tablet 0 Longer Madril MD by 1 Active PhD mouth 4 daily / 1 0 / 1 0 POTASSIUM 2 2 POTASSIUM 43331589302 No Joseph W Active CHLORIDE CR 10 capsule 0 CHLORIDE Longer Farooq DO MEQ CPCR by 1 Active mouth 4 daily / 0 8 / 2 9 SPIRONOLACTONE 1 2 SPIRONOLACTONE 57576419582 No Joseph W Active 25 MG TAB tablet 0 Longer Farooq DO by 1 Active mouth 4 daily / 0 8 / 2 9 METFORMIN HCL 1 2 METFORMIN HCL 19077759607 No Joseph W Active 500 MG TABS tablet 0 Longer Farooq DO by 1 Active mouth 4 twice / daily 0 8 / 2 9 AMARYL 1 MG 1 tab 2 GLIMEPIRIDE 76394761005 No Joseph W Active TABS twice 0 Longer Farooq DO daily 1 Active 4 / 0 8 / 2 9 PHENTERMINE HCL 1 po q 2 PHENTERMINE HCL 69587241973 No Joseph W Active 37.5 MG TABS am for 0 Longer Farooq DO wt. 1 Active loss 3 / 1 2 / 2 3 PROMETHAZINE 1 tab 2 PROMETHAZINE 21506597737 No Joseph W Active HCL 25 MG TABS by 0 HCL Longer Farooq DO mouth 1 Active every 6 3 hours / as 0 needed 9 / 0 9 CIPROFLOXACIN Take 2 CIPROFLOXACIN 51654592613 No Joseph W Active HCL 500 MG TABS one (1) 0 HCL Longer Farooq DO tablet 1 Active by 3 mouth / twice a 0 day 9 / 0 9 ABILIFY 5 MG one 2 ARIPIPRAZOLE 72153157212 No Joseph W Active TABS p.o. q. 0 Longer [facility] day 1 Active 3 / 0 9 / 0 9 HYDROCHLOROTHIA 2 tabs 2 HYDROCHLOROTHIA 60761949182 No Joseph W Active ZIDE 25 MG TABS every 0 ZIDE Longer [facility] morning 1 Active 3 / 0 6 / 2 7 ABILIFY 2 MG 1 po q 2 ARIPIPRAZOLE 74041249165 No Joseph W Active TABS hs for 0 Longer [facility] major 1 Active depress 3 ion / 0 5 / 0 7 ADIPEX-P 37.5 1/2 tab 2 PHENTERMINE HCL 39821525075 No Casey Active MG CAPS po q am 0 Longer [place] PA for 1 Active weight 3 loss / 0 5 / 0 1 CIPRO 500 MG 1 2 CIPROFLOXACIN 69816153445 No Casey Active TAB tablet 0 HCL Longer [place] PA by 1 Active mouth 3 twice / daily 0 5 / 0 1 NECON 1/35 (28) 1 po 2 NORETHINDRONE-E 71961376525 No Casey Active 1-35 MG-MCG daily 0 TH ESTRADIOL Longer [place] PA TABS 1 Active 3 / 0 5 / 0 1 TRAMADOL HCL 50 1 po 2 TRAMADOL HCL 71185228627 No Casey Active MG TABS tid 0 Longer [place] PA with ES 1 Active Tylenol 3 / 0 5 / 0 1 FLUCONAZOLE 100 one 2 FLUCONAZOLE 93131846164 No Casey Active MG TABS p.o. q. [address] [facility] day 2 1 Active days 3 / 0 5 / 0 1 POTASSIUM 1 2 POTASSIUM 07388126262 No Casey Active CHLORIDE CR 10 capsule 0 CHLORIDE Longer [place] PA MEQ CPCR by 1 Active mouth 3 daily / 0 5 / 0 1 IMIPRAMINE HCL Take 6 IMIPRAMINE HCL 94162727371 Active Joseph W Active 50 MG TABS tablets Farooq DO by mouth at bedtime DIFLUCAN 100 MG 1 2 FLUCONAZOLE 54332695781 No Joseph W Active TAB tablet 0 Longer Farooq DO by 1 Active mouth 2 daily / 0 2 / 2 4 METOPROLOL 1/2 tab METOPROLOL 25737109107 Active Joseph W Active TARTRATE 25 MG po bid TARTRATE Farooq DO TABS VERAPAMIL HCL 2 po VERAPAMIL HCL 10047091945 Active Joseph W Active CR 120 MG TAB bid Farooq DO CR PERMETHRIN 5 % apply 2 PERMETHRIN 68632028608 No Joseph W Active CREA neck to 0 Longer Farooq DO toes 1 Active tonight 2 and / then 0 rinse 1 off in / morning 2 . 0 repeat at 7 days SEROQUEL XR 50 one 2 QUETIAPINE 02389686770 No Joseph W Active MG [id number] p.o. q. 0 FUMARATE Longer Farooq DO evening 1 Active 2 / 0 1 / 2 0 TRAMADOL HCL 50 1-2 2 TRAMADOL HCL 07837132562 No Joseph W Active MG TABS tablets 0 Longer Farooq DO every 1 Active 6-8 2 hours / as 0 needed 1 for / pain 2 0 ALPRAZOLAM 3 MG one ALPRAZOLAM 18966878946 Active Indigo Active [id number] p.o. [facility] q.h.s. ENVIRONMENTAL HEALTH AND SAFETY LEADER ALPRAZOLAM XR Take 1 2 ALPRAZOLAM 29263182394 No Joseph W Active [id number] tablet 0 [id number] Longer Farooq DO by 1 Active mouth 1 at / bedtime 1 1 / 2 9 DIFLUCAN 100 MG 1 2 FLUCONAZOLE 88412865141 No Joseph W Active TAB tablet 0 Longer Farooq DO by 1 Active mouth 1 daily / 1 0 / 0 6 AMBIEN 10 MG 1 tab ZOLPIDEM 38349403811 Active Afsaneh Active TAB by TARTRATE Gericke, mouth MA at bedtime as needed for sleep DIFLUCAN 100 1 tablet DIFLUCAN 903112 FLUCONAZOLE Inactive MG TAB by mouth 100 MG TAB daily ALPRAZOLAM Take 1 ALPRAZOLAM ALPRAZOLAM Inactive XR [id number] tablet by XR [id number] mouth at [id number] bedtime TRAMADOL HCL 1-2 TRAMADOL 897311 TRAMADOL HCL Inactive 50 MG TABS tablets HCL 50 MG every 6-8 TABS hours as needed for pain SEROQUEL XR one p.o. SEROQUEL XR QUETIAPINE Inactive 50 MG q. 50 MG FUMARATE [id number] evening [id number] PERMETHRIN 5 apply PERMETHRIN 842688 PERMETHRIN Inactive % CREA neck to 5 % CREA toes tonight and then rinse off in morning. repeat at 7 days DIFLUCAN 100 1 tablet DIFLUCAN 022381 FLUCONAZOLE Inactive MG TAB by mouth 100 MG TAB daily POTASSIUM 1 capsule POTASSIUM POTASSIUM Inactive CHLORIDE CR by mouth CHLORIDE CR CHLORIDE 10 MEQ CPCR daily 10 MEQ CPCR FLUCONAZOLE one p.o. FLUCONAZOLE 19760111 FLUCONAZOLE Inactive 100 MG TABS q. day 2 100 MG TABS days TRAMADOL HCL 1 po tid TRAMADOL 546646 TRAMADOL HCL Inactive 50 MG TABS with ES HCL 50 MG Tylenol TABS NECON 1/35 1 po NECON 1/35 NORETHINDRONE- Inactive (28) 1-35 daily (28) 1-35 ETH ESTRADIOL MG-MCG TABS MG-MCG TABS CIPRO 500 MG 1 tablet CIPRO 500 816588 CIPROFLOXACIN Inactive TAB by mouth MG TAB HCL twice daily ADIPEX-P 1/2 tab ADIPEX-P 721377 PHENTERMINE Inactive 37.5 MG CAPS po q am 37.5 MG HCL for CAPS weight loss ABILIFY 2 MG 1 po q hs ABILIFY 2 637055 ARIPIPRAZOLE Inactive TABS for major MG TABS depressio n HYDROCHLOROT 2 tabs HYDROCHLORO 936924 HYDROCHLOROTHI Inactive HIAZIDE 25 every THIAZIDE 25 AZIDE MG TABS morning MG TABS ABILIFY 5 MG one p.o. ABILIFY 5 248474 ARIPIPRAZOLE Inactive TABS q. day MG TABS CIPROFLOXACI Take one CIPROFLOXAC 979511 CIPROFLOXACIN Inactive N HCL 500 MG (1) IN HCL 500 HCL TABS tablet by MG TABS mouth twice a day PROMETHAZINE 1 tab by PROMETHAZIN 197228 PROMETHAZINE Inactive HCL 25 MG mouth E HCL 25 MG HCL TABS every 6 TABS hours as needed PHENTERMINE 1 po q am PHENTERMINE 858216 PHENTERMINE Inactive HCL 37.5 MG for wt. HCL 37.5 MG HCL TABS loss TABS AMARYL 1 MG 1 tab AMARYL 1 MG 065822 GLIMEPIRIDE Inactive TABS twice TABS daily METFORMIN 1 tablet METFORMIN 982157 METFORMIN HCL Inactive HCL 500 MG by mouth HCL 500 MG TABS twice TABS daily SPIRONOLACTO 1 tablet SPIRONOLACT 642077 SPIRONOLACTONE Inactive NE 25 MG TAB by mouth ONE 25 MG daily TAB POTASSIUM 2 capsule POTASSIUM POTASSIUM Inactive CHLORIDE CR by mouth CHLORIDE CR CHLORIDE 10 MEQ CPCR daily 10 MEQ CPCR LISINOPRIL 1 tablet LISINOPRIL 480728 LISINOPRIL Inactive 20 MG TABS by mouth 20 MG TABS daily DIFLUCAN 100 1 tablet DIFLUCAN 483124 FLUCONAZOLE Inactive MG TABS by mouth 100 MG TABS every other day for 2 doses DIFLUCAN 100 1 tablet DIFLUCAN 200576 FLUCONAZOLE Inactive MG TAB by mouth 100 MG TAB daily x 3 days PREDNISONE 2 tablets PREDNISONE 127046 PREDNISONE Inactive 20 MG TAB today, 20 MG TAB then 1 tablet days 2-4 VYVANSE 20 1 tablet VYVANSE 20 LISDEXAMFETAMI Inactive MG ORAL CAPS daily for MG ORAL NE DIMESYLATE binge CAPS eating disorder TRAMADOL HCL 1/2 po TRAMADOL 580395 TRAMADOL HCL Inactive 50 MG TABS tid with HCL 50 MG ES TABS Tylenol prn pain JANUVIA 100 1 tablet JANUVIA 100 SITAGLIPTIN Inactive MG TABS by mouth MG TABS PHOSPHATE daily AMOXICILLIN 2 po BID AMOXICILLIN 267061 AMOXICILLIN Inactive 500 MG CAPS x 10 days 500 MG CAPS PREDNISONE 2 tabs PREDNISONE 287710 PREDNISONE Inactive 20 MG TAB daily for 20 MG TAB 3 days, 1 tab daily for 3 days, 1/2 tab daily for 2 days NITROFURANTO One NITROFURANT 7871349 NITROFURANTOIN Inactive IN MONOHYD capsule OIN MONOHYD [...] HGBA1C - Chemistry sodium, serum 140 mmol/L 724-500 9952/04/13 potassium, serum 3.9 mmol/L 3.5-5.2 chloride, serum [...] 198 10^3/MM^3 10*3/mm3 142-424 Lab Report: Chlamydia/GC APTIMA/09312 - Lab chlamydia DNA probe NOT DETECTED NOT DETECTED Lab Report: Chlamydia/GC APTIMA/39820 - Microbiology Neisseria gonorrhoeae DNA probe NOT DETECTED NOT DETECTED Lab Report: Comp. Metabolic Panel, Lipid Panel - Chemistry sodium, serum 136 mmol/L 309-557 1585/01/04 carbon dioxide, venous blood 27.0 mmol/L 21.0-32.0 potassium, serum 4.6 mmol/L 3.5-5.2 chloride, serum 98 mmol/L 98-107 blood glucose 174 mg/dL 65-110 urea nitrogen, blood 12 mg/dL 7-18 creatinine, serum 0.78 mg/dL 0.55-1.30 alanine aminotransferase (SGPT), serum 65 U/L 12-78 aspartate aminotransferase (SGOT), serum 34 U/L 15-37 calcium, serum 8.9 mg/dL 8.5-10.1 bilirubin, serum, total 0.40 mg/dL 0.00-1.00 cholesterol, serum 219 mg/dL 087-119 3391/01/04 triglyceride, serum, fasting 214 mg/dL 30-200 HDL cholesterol, serum 39 mg/dL 32-96 LDL cholesterol, serum 137 mg/dL 0-130 Lab Report: FSH AND LH/7137/Adult - Chemistry follicle stimulating hormone, serum 84.0 m[iU]/mL luteinizing hormone, serum 40.2 m[iU]/mL Lab Report: HGBA1C, CBC - Chemistry hemoglobin A1C, blood, as % of total hemoglobin 6.0 % 4.3-6.0 Lab Report: HGBA1C, CBC - Hematology mean corpuscular volume, RBC 91 fL 80-97 mean corpuscular hemoglobin, RBC 31.0 pg 27.0-31.2 mean corpuscular hemoglobin 33.9 G/DL % 31.8-35.4 concentration, RBC red blood cell distribution width 14.6 % 11.6-14.8 platelet count 231 10^3/MM^3 10*3/mm3 241-905 7290/07/21 hematocrit, blood 37.7 % 36.0-46.0 hemoglobin, blood 12.8 g/dL 12.0-16.0 erythrocyte (RBC) count 4.13 10^6/MM^3 10*6/mm3 4.04-5.48 leukocyte count, blood 7.2 10^3/MM^3 10*3/mm3 4.6-10.2 Lab Report: Thyroid Stimulating Hormone (L), Free Thyroxine (L) - Chemistry TSH 2.84 m[iU]/mL 0.36-3.74 thyroxine, serum, free 0.88 ng/dL 0.76-1.46 Lab Report: Thyroid Stimulating Hormone (L), MICROALBUMIN, Basic Metabol ... - Chemistry albumin/creatinine ratio, urine < 30 mg/g mg/g{creat} 0-29 sodium, serum 140 mmol/L 155-852 1260/07/21 potassium, serum 3.9 mmol/L 3.5-5.2 chloride, serum 102 mmol/L 98-107 TSH 2.24 m[iU]/mL 0.36-3.74 carbon dioxide, venous blood 33.4 mmol/L 21.0-32.0 [...] Yes Encounters Code Encounter Date Provider Facility CPT-72769 Level 4 Est. 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 Patient [facility] 18:59:38 CDT CPT-21093 Level 3 Est. Patient Joseph [facility] 14:42:12 CDT -RHC CPT-72336 Level 3 Est. Patient Joseph Pined[address] [facility] 22:18:20 CDT -RHC CPT-63828 Level 3 Est. Patient Joseph [facility] 16:46:04 CDT -RHC CPT-50873 Level 3 Est. Patient Joseph Pineda [facility] 15:39:53 CDT -RHC CPT-44655 Level 3 Est. Patient Maite Sanchez MD [facility] 13:33:34 CDT -RHC CPT-92686 Level 3 Est. Patient Joseph W [facility] 11:37:08 CDT -RHC CPT-81139 Level 3 Est. Patient Joseph Pineda [facility] 17:13:29 SUBSTITUTE BUS DRIVER -RHC CPT-43671 Level 3 Est. Patient Joseph [facility] 18:42:44 CDT CPT-14080 Level 3 Est. Patient [place] [facility] 16:25:39 CDT CPT-23411 Level 3 Est. Patient Casey Garzaner [facility] 09:52:45 CDT -RHC CPT-35802 Level 3 Est. Patient Joseph [facility] 11:03:29 SUBSTITUTE BUS DRIVER -RHC CPT-30805 Level 3 Est. Patient [facility] 11:03:08 SUBSTITUTE BUS DRIVER -RHC CPT-07019 Level 3 Est. Patient [facility] 14:33:31 CDT -RHC CPT-75175 Level 3 Est. Patient [facility] 17:05:02 SUBSTITUTE BUS DRIVER -RHC CPT-60370 Level 3 Est. Patient [facility] 17:48:06 SUBSTITUTE BUS DRIVER -RHC CPT-26166 Level 3 Est. Patient [facility] 14:59:22 SUBSTITUTE BUS DRIVER -RHC CPT-02215 Level 3 Est. Patient [facility] - 21:45:56 SUBSTITUTE BUS DRIVER Jose RHC CPT-07248 Level 3 Est. Patient [facility] 21:29:50 CDT -RHC CPT-82031 Level 3 Est. 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
--- OUTSIDE RECORDS SUMMARY | 2016-11-20 13:58 | External Medical Summary | Clinical Summary ---
:1965 Author Organization [facility] TaoTaoSou Address [address] [address] Phone Allergies, Adverse Reactions, Alerts Allergy Name Reaction Description Start Date Severity Status Provider NKDA Critical Active Indigo Yonickieum BRAKE LINING FINISHER ASBESTOS NKDA Critical No Longer Indigo Yokum BRAKE LINING FINISHER ASBESTOS Active NKDA Critical Inactive Adrianna Elder Conditions [...] Resolved Indigo Other malaise 05/24 07/02 Yokum BRAKE LINING FINISHER ASBESTOS and fatigue SLEEP APNEA, 327.23 Active Joseph Pineda Obstructive OBSTRUCTIVE, 06/27 06/27 Farooq DO sleep apnea MILD (adult) (pediatric) OVERWEIGHT 278.02 Inactive Joseph Pineda Overweight 06/28 06/28 Farooq DO Obesity 278.00 Active Indigo Obesity, 06/28 10/18 Yokum BRAKE LINING FINISHER ASBESTOS unspecified OTH GENERAL V70.3 Resolved Maite Gutierrez Other general MEDICAL Laura ONEAL medical EXAMINATION PhD examination for ADMIN PURPOSES administrative purposes OTHER ABNORMAL 790.29 Resolved Maite C Other abnormal GLUCOSE 05/20 Laura ONEAL glucose PhD ACUTE 466.0 Resolved Maite C Acute BRONCHITIS 09/02 Laura ONEAL bronchitis PhD DEPENDENT 782.3 Resolved Indigo Edema EDEMA, LEGS, 10/29 10/18 Yokum BRAKE LINING FINISHER ASBESTOS BILATERAL HYPOKALEMIA, 276.8 Resolved Indigo Hypopotassemia MILD 10/29 07/02 Youm BRAKE LINING FINISHER ASBESTOS Diabetes, Type 250.00 Inactive Joseph Pineda Diabetes 2 06/27 06/27 Farooq DO mellitus without mention of complication, type II or unspecified type, not stated as uncontrolled Diabetes 250.02 Resolved Indigo Diabetes mellitus, type 06/27 BRAKE LINING FINISHER ASBESTOS mellitus II, without mention uncontrolled of complication, [...] Resolved Indigo Routine gynecological 12/14 07/02 Yo BRAKE LINING FINISHER ASBESTOS gynecological examination examination Postmenopausal 627.1 Resolved Indigo Postmenopausal bleeding 12/14 BRAKE LINING FINISHER ASBESTOS bleeding Screening for V76.51 Resolved Indigo Screening for malignant 12/26 07/02 Yokum BRAKE LINING FINISHER ASBESTOS malignant neoplasms of neoplasms of colon colon Insomnia, 307.42 Active Indigo 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 BRAKE LINING FINISHER ASBESTOS disorder of initiating or maintaining sleep Establish care V68.89 Resolved Indigo Encounters for or get 01/16 07/02 Yo BRAKE LINING FINISHER ASBESTOS other specified acquainted administrative visit purpose Weakness, left 342.90 Resolved Indigo Hemiplegia, side of body 06/20 10/18 Yokum BRAKE LINING FINISHER ASBESTOS unspecified, affecting unspecified side TIA 435.9 Active Indigo Unspecified 06/20 07/02 Yokum BRAKE LINING FINISHER ASBESTOS transient cerebral ischemia Knee pain, 719.46 Active Indigo Pain in joint bilateral 06/20 10/18 Yokum BRAKE LINING FINISHER ASBESTOS involving lower leg Bronchitis 490 Resolved Indigo Bronchitis, not 07/23 10/18 Yokum BRAKE LINING FINISHER ASBESTOS specified as acute or chronic Diabetes 357.2 Active Maliheh Polyneuropathy mellitus, 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EXTRUDER OPERATOR VERTICAL 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y Knee pain, 719.46 Active Indigo Pain in joint right 06/20 10/18 Yokum BRAKE LINING FINISHER ASBESTOS involving lower leg Jesi 112.3 Active Indigo Candidiasis of intertrigo 10/09 10/18 Yokum BRAKE LINING FINISHER ASBESTOS skin and nails Hyperlipidemia 272.4 Active Anne Other and 12/24 12/24 Neil unspecified RMA hyperlipidemia Incontinence, 788.33 Active Indigo Mixed mixed, 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 BRAKE LINING FINISHER ASBESTOS incontinence urge/stress (female) (male) Female stress 625.6 Active Yury AnthonyCarlos Enrique Stress incontinence 01/03 01/03 Cy patel MD female ABNORMAL VAGINAL ICD-626.9 Inactive Maite Sanchez BLEEDING PhD SCABIES ICD-133.0 Inactive Maite Sanchez PhD FATIGUE ICD-780.79 Inactive Indigo Yokum BRAKE LINING FINISHER ASBESTOS OTH GENERAL ICD-V70.3 Inactive Maite Sanchez MEDICAL PhD EXAMINATION ADMIN PURPOSES OTHER ABNORMAL ICD-790.29 Inactive Maite Sanchez GLUCOSE PhD ACUTE BRONCHITIS ICD-466.0 Inactive Maite Matt Sanchez PhD DEPENDENT EDEMA, ICD-782.3 Inactive Indigo Yokum LEGS, BILATERAL BRAKE LINING FINISHER ASBESTOS HYPOKALEMIA, MILD ICD-276.8 Inactive Indigo Yokum BRAKE LINING FINISHER ASBESTOS Diabetes mellitus, ICD-250.02 Inactive Indigo Yokum type II, BRAKE LINING FINISHER ASBESTOS uncontrolled Sinusitis, ICD-461.1 Inactive Ismael Coyne frontal, acute Amandeep ONEAL Laryngitis, acute ICD-464.00 Inactive Ismael Coyne Amandeep ONEAL Routine ICD-V72.31 Inactive Indigo Yokum gynecological BRAKE LINING FINISHER ASBESTOS examination Postmenopausal ICD-627.1 Inactive Indigo Yokum 2015 bleeding BRAKE LINING FINISHER ASBESTOS Screening for ICD-V76.51 Inactive Indigo Yokum 2015 malignant BRAKE LINING FINISHER ASBESTOS neoplasms of colon Establish care or ICD-V68.89 Inactive Indigo Yokum get acquainted BRAKE LINING FINISHER ASBESTOS visit Weakness, left ICD-342.90 Inactive Indigo Yokum side of body BRAKE LINING FINISHER ASBESTOS Bronchitis ICD-490 Inactive Indigo Yokum BRAKE LINING FINISHER ASBESTOS Medication List Medication Instructions Start Stop Generic NDC Status Provider Patient Date Date Name Instruction METFORMIN 2 tablets METFORMIN 63041589636 No Indigo Active HCL 500 MG by mouth HCL Longer Yokum TB24 twice Active BRAKE LINING FINISHER ASBESTOS daily AMARYL 1 MG 1 tablet GLIMEPIRID 87204774449 No Indigo Active ORAL TABS orally E Longer Yokum twice Active BRAKE LINING FINISHER ASBESTOS daily NYSTATIN apply to NYSTATIN 45891741022 Active Indigo Active 579337 rash TID Yokum UNIT/GM PRN BRAKE LINING FINISHER ASBESTOS CREA TROKENDI XR 2 tab TOPIRAMATE 27192739516 Active Malihe Active 100 MG ORAL daily h [id number] Ziglar i EXTRUDER OPERATOR VERTICAL METOPROLOL 1 tab po METOPROLOL 59571999308 Active Indigo Active TARTRATE 25 bid TARTRATE Yokum MG TABS BRAKE LINING FINISHER ASBESTOS AZITHROMYCI 2 po qd x AZITHROMYC 43276625960 No Jillin Active N 250 MG 1 day, IN Longer a TABS then 1 po Active Frazel qd x 4 l BRAKE LINING FINISHER ASBESTOS days PREDNISONE 2 pills PREDNISONE 95045742996 No Jillin Active 20 MG TAB daily x 4 Longer a days Active Frazel l BRAKE LINING FINISHER ASBESTOS PIOGLITAZON take one PIOGLITAZO 17318600502 Active Malihe Active E HCL 30 MG a day NE HCL h ORAL TABS Ziglar i EXTRUDER OPERATOR VERTICAL JANUVIA 100 1 tablet SITAGLIPTI 04902111670 No Indigo Active MG TABS by mouth N Longer Yokum daily PHOSPHATE Active BRAKE LINING FINISHER ASBESTOS ATORVASTATI 1 pill by ATORVASTAT 46886159348 Active Indigo Active N CALCIUM mouth IN CALCIUM Yokum 10 MG TABS nightly, BRAKE LINING FINISHER ASBESTOS for cholester ol ASPIRIN 81 1 po qd ASPIRIN 69948832167 Active Indigo Active MG ORAL Yokum TABS BRAKE LINING FINISHER ASBESTOS NITROFURANT One NITROFURAN 87346817788 No Indigo Active OIN MONOHYD capsule TOIN Longer Yokum MACRO 100 BID for MONOHYD Active BRAKE LINING FINISHER ASBESTOS MG CAPS UTI MACRO TRAMADOL 1/2 po TRAMADOL 05600798259 No Jillin Active HCL 50 MG tid with HCL Longer a TABS ES Active Frazel Tylenol l BRAKE LINING FINISHER ASBESTOS prn pain VYVANSE 20 1 tablet LISDEXAMFE 00380259307 No Jillin Active MG ORAL daily for TAMINE Longer a CAPS binge DIMESYLATE Active Frazel eating l BRAKE LINING FINISHER ASBESTOS disorder LASIX 20 MG 2 tablet FUROSEMIDE 18503000464 Active Indigo Active TAB by mouth Yokum daily BRAKE LINING FINISHER ASBESTOS CELEBREX 1 tablet CELECOXIB 38036455822 Active Indigo Active 200 MG CAPS by mouth Yokum daily BRAKE LINING FINISHER ASBESTOS with meals PREDNISONE 2 tablets PREDNISONE 20195814636 No Joseph Active 20 MG TAB today, Longer W Farooq then 1 Active DO tablet days 2-4 DIFLUCAN 1 tablet FLUCONAZOL 69429200480 No Joseph Active 100 MG TAB by mouth E Longer W Farooq daily x 3 Active DO days DIFLUCAN 1 tablet FLUCONAZOL 31087695620 No Joseph Active 100 MG TABS by mouth E Longer W Farooq every Active DO other day for 2 doses ZOFRAN 4 MG 1 po q6hr ONDANSETRO 72062024765 Active Joseph Active TABS PRN N HCL W Farooq Nausea DO PREDNISONE 2 tabs PREDNISONE 51896472449 No Joseph Active 20 MG TAB daily for Longer W Farooq 3 days, 1 Active DO tab daily for 3 days, 1/2 tab daily for 2 days AMOXICILLIN 2 po BID AMOXICILLI 18894928054 No Maite C Active 500 MG CAPS x 10 days N Longer Madril Active PhD LISINOPRIL 1 tablet LISINOPRIL 00628354057 No Maite C Active 20 MG TABS by mouth Longer Madril daily Active PhD POTASSIUM 2 capsule POTASSIUM 18004469712 No Joseph Active CHLORIDE CR by mouth CHLORIDE Longer W Farooq 10 MEQ CPCR daily Active DO SPIRONOLACT 1 tablet SPIRONOLAC 61078316018 No Joseph Active ONE 25 MG by mouth TONE Longer W Farooq TAB daily Active DO METFORMIN 1 tablet METFORMIN 19152847760 No Joseph Active HCL 500 MG by mouth HCL Longer W Farooq TABS twice Active DO daily AMARYL 1 MG 1 tab GLIMEPIRID 09118247510 No Joseph Active TABS twice E Longer W Farooq daily Active DO PHENTERMINE 1 po q am PHENTERMIN 14137901226 No Joseph Active HCL 37.5 MG for wt. E HCL Longer W Farooq TABS loss Active DO PROMETHAZIN 1 tab by PROMETHAZI 98880298116 No Joseph Active E HCL 25 MG mouth NE HCL Longer W Farooq TABS every 6 Active DO hours as needed CIPROFLOXAC Take one CIPROFLOXA 23518349385 No Joseph Active IN HCL 500 (1) DELORES HCL Longer W Farooq MG TABS tablet by Active DO mouth twice a day ABILIFY 5 one p.o. ARIPIPRAZO 74904886048 No Joseph Active MG TABS q. day LE Longer W Farooq Active DO HYDROCHLORO 2 tabs HYDROCHLOR 43961091884 No Joseph Active THIAZIDE 25 every OTHIAZIDE Longer W Farooq MG TABS morning Active DO ABILIFY 2 1 po q hs ARIPIPRAZO 57097020368 No Joseph Active MG TABS for major LE Longer W Farooq depressio Active DO n ADIPEX-P 1/2 tab PHENTERMIN 65044079461 No Casey Active 37.5 MG po q am E HCL Longer [place] CAPS for Active PA weight loss CIPRO 500 1 tablet CIPROFLOXA 91580371134 No Casey Active MG TAB by mouth DELORES HCL Longer Leonarda twice Active PA daily NECON 1/35 1 po NORETHINDR 30722392695 No Casey Active (28) 1-35 daily ONE-ETH Longer [place] MG-MCG TABS ESTRADIOL Active PA TRAMADOL 1 po tid TRAMADOL 25689259558 No Casey Active HCL 50 MG with ES HCL Longer [place] TABS Tylenol Active PA FLUCONAZOLE one p.o. FLUCONAZOL 81278278345 No Casey Active 100 MG TABS q. day 2 E Longer [place] days Active PA POTASSIUM 1 capsule POTASSIUM 72633432648 No Casey Active CHLORIDE CR by mouth CHLORIDE Longer 10 MEQ CPCR daily Active PA IMIPRAMINE Take 6 IMIPRAMINE 97624895531 Active Indigo Active HCL 50 MG tablets HCL Yokum TABS by mouth BRAKE LINING FINISHER ASBESTOS at bedtime DIFLUCAN 1 tablet FLUCONAZOL 50953766884 No Joseph Active 100 MG TAB by mouth E Longer W Farooq daily Active DO VERAPAMIL 2 po bid VERAPAMIL 56606231264 Active Indigo Active HCL CR 120 HCL Yokum MG TAB CR BRAKE LINING FINISHER ASBESTOS PERMETHRIN apply PERMETHRIN 66661326392 No Jospeh Active 5 % CREA neck to Longer W Farooq toes Active DO tonight and then rinse off in morning. repeat at 7 days SEROQUEL XR one p.o. QUETIAPINE 91369805999 No Joseph Active 50 MG q. FUMARATE Longer W Farooq [id number] evening Active DO TRAMADOL 1-2 TRAMADOL 36276312118 No Joseph Active HCL 50 MG tablets HCL Longer W Farooq TABS every 6-8 Active DO hours as needed for pain ALPRAZOLAM one p.o. ALPRAZOLAM 17266071991 Active Indigo Active 3 MG q.h.s. Yokum [id number] BRAKE LINING FINISHER ASBESTOS ALPRAZOLAM Take 1 ALPRAZOLAM 75241130272 No Joseph Active XR tablet by [id number] Longer W Farooq [id number] mouth at Active DO bedtime DIFLUCAN 1 tablet FLUCONAZOL 42779136868 No Joseph Active 100 MG TAB by mouth E Longer W Farooq daily Active DO AMBIEN 10 1 tab by ZOLPIDEM 37860114698 Active Indigo Active MG TAB mouth at TARTRATE Yokum bedtime BRAKE LINING FINISHER ASBESTOS as needed for sleep DIFLUCAN 100 1 tablet DIFLUCAN 035793 FLUCONAZOLE Inactive MG TAB by mouth 100 MG TAB daily ALPRAZOLAM Take 1 ALPRAZOLAM ALPRAZOLAM Inactive XR [id number] tablet by XR [id number] mouth at [id number] bedtime TRAMADOL HCL 1-2 TRAMADOL 065749 TRAMADOL HCL Inactive 50 MG TABS tablets HCL 50 MG every 6-8 TABS hours as needed for pain SEROQUEL XR one p.o. SEROQUEL XR QUETIAPINE Inactive 50 MG q. 50 MG FUMARATE [id number] evening [id number] PERMETHRIN 5 apply PERMETHRIN 698795 PERMETHRIN Inactive % CREA neck to 5 % CREA toes tonight and then rinse off in morning. repeat at 7 days DIFLUCAN 100 1 tablet DIFLUCAN 022290 FLUCONAZOLE Inactive MG TAB by mouth 100 MG TAB daily POTASSIUM 1 capsule POTASSIUM POTASSIUM Inactive CHLORIDE CR by mouth CHLORIDE CR CHLORIDE 10 MEQ CPCR daily 10 MEQ CPCR FLUCONAZOLE one p.o. FLUCONAZOLE 706326 FLUCONAZOLE Inactive 100 MG TABS q. day 2 100 MG TABS days TRAMADOL HCL 1 po tid TRAMADOL 464621 TRAMADOL HCL Inactive 50 MG TABS with ES HCL 50 MG Tylenol TABS NECON 1/35 1 po NECON 1/35 NORETHINDRONE- Inactive (28) 1-35 daily (28) 1-35 ETH ESTRADIOL MG-MCG TABS MG-MCG TABS CIPRO 500 MG 1 tablet CIPRO 500 100090 CIPROFLOXACIN Inactive TAB by mouth MG TAB HCL twice daily ADIPEX-P 1/2 tab ADIPEX-P 448068 PHENTERMINE Inactive 37.5 MG CAPS po q am 37.5 MG HCL for CAPS weight loss ABILIFY 2 MG 1 po q hs ABILIFY 2 008524 ARIPIPRAZOLE Inactive TABS for major MG TABS depressio n HYDROCHLOROT 2 tabs HYDROCHLORO 888362 HYDROCHLOROTHI Inactive HIAZIDE 25 every THIAZIDE 25 AZIDE MG TABS morning MG TABS ABILIFY 5 MG one p.o. ABILIFY 5 572157 ARIPIPRAZOLE Inactive TABS q. day MG TABS CIPROFLOXACI Take one CIPROFLOXAC 338453 CIPROFLOXACIN Inactive N HCL 500 MG (1) IN HCL 500 HCL TABS tablet by MG TABS mouth twice a day PROMETHAZINE 1 tab by PROMETHAZIN 691757 PROMETHAZINE Inactive HCL 25 MG mouth E HCL 25 MG HCL TABS every 6 TABS hours as needed PHENTERMINE 1 po q am PHENTERMINE 260456 PHENTERMINE Inactive HCL 37.5 MG for wt. HCL 37.5 MG HCL TABS loss TABS AMARYL 1 MG 1 tab AMARYL 1 MG 258970 GLIMEPIRIDE Inactive TABS twice TABS daily METFORMIN 1 tablet METFORMIN 705535 METFORMIN HCL Inactive HCL 500 MG by mouth HCL 500 MG TABS twice TABS daily SPIRONOLACTO 1 tablet SPIRONOLACT 509978 SPIRONOLACTONE Inactive NE 25 MG TAB by mouth ONE 25 MG daily TAB POTASSIUM 2 capsule POTASSIUM POTASSIUM Inactive CHLORIDE CR by mouth CHLORIDE CR CHLORIDE 10 MEQ CPCR daily 10 MEQ CPCR LISINOPRIL 1 tablet LISINOPRIL 430303 LISINOPRIL Inactive 20 MG TABS by mouth 20 MG TABS daily DIFLUCAN 100 1 tablet DIFLUCAN 19760111 FLUCONAZOLE Inactive MG TABS by mouth 100 MG TABS every other day for 2 doses DIFLUCAN 100 1 tablet DIFLUCAN 421757 FLUCONAZOLE Inactive MG TAB by mouth 100 MG TAB daily x 3 days PREDNISONE 2 tablets PREDNISONE 302417 PREDNISONE Inactive 20 MG TAB today, 20 MG TAB then 1 tablet days 2-4 VYVANSE 20 1 tablet VYVANSE 20 LISDEXAMFETAMI Inactive MG ORAL CAPS daily for MG ORAL NE DIMESYLATE binge CAPS eating disorder TRAMADOL HCL 1/2 po TRAMADOL 631248 TRAMADOL HCL Inactive 50 MG TABS tid with HCL 50 MG ES TABS Tylenol prn pain JANUVIA 100 1 tablet JANUVIA 100 SITAGLIPTIN Inactive MG TABS by mouth MG TABS PHOSPHATE daily AMARYL 1 MG 1 tablet AMARYL 1 MG 822424 GLIMEPIRIDE Inactive ORAL TABS orally ORAL TABS twice daily METFORMIN 2 tablets METFORMIN METFORMIN HCL Inactive HCL 500 MG by mouth HCL 500 MG TB24 twice TB24 daily AMOXICILLIN 2 po BID AMOXICILLIN 779619 AMOXICILLIN Inactive 500 MG CAPS x 10 days 500 MG CAPS PREDNISONE 2 tabs PREDNISONE 514624 PREDNISONE Inactive 20 MG TAB daily for 20 MG TAB 3 days, 1 tab daily for 3 days, 1/2 tab daily for 2 days NITROFURANTO One NITROFURANT 5937049 NITROFURANTOIN Inactive IN MONOHYD capsule OIN MONOHYD MONOHYD MACRO MACRO 100 MG BID for MACRO 100 CAPS UTI MG CAPS PREDNISONE 2 pills PREDNISONE 625622 PREDNISONE Inactive 20 MG TAB daily x 4 20 MG TAB days AZITHROMYCIN 2 po qd x AZITHROMYCI 5976315 AZITHROMYCIN Inactive 250 MG TABS 1 day, [...] HGBA1C - Chemistry sodium, serum 140 mmol/L 741-235 1559/06/03 potassium, serum 3.9 mmol/L 3.5-5.2 chloride, serum [...] Panel - Chemistry cholesterol, serum 157 mg/dL 250-508 1430/08/22 triglyceride, serum, fasting 215 mg/dL 30-200 HDL [...] mg/dL Encounters Code Encounter Date Provider Facility CPT-06375 Level 4 New Patient Yury Benoit MD [facility] 15:17:12 CDT CPT-16666 Level 3 Est. Patient [facility] - 13:37:46 CDT [place] CPT-08865 Level 4 Est. Patient [facility] - 10:01:06 CDT [place] CPT-88638 Level 3 Est. Patient [facility] 08:58:07 CDT EXTRUDER OPERATOR VERTICAL CPT-42466 Level 3 Est. Patient Faby Marino [facility] 14:40:56 CDT BRAKE LINING FINISHER ASBESTOS CPT-44396 Level 4 Est. Patient [facility] 17:29:53 DATABASE MANAGEMENT SPECIALIST EXTRUDER OPERATOR VERTICAL CPT-12223 Level 4 Est. Patient [facility] 09:51:54 DATABASE MANAGEMENT SPECIALIST CPT-31385 Level 3 Est. Patient [facility] 18:59:38 CDT CPT-09889 Level 3 Est. Patient Joseph Trivedi DO [facility] 14:42:12 CDT -RHC CPT-28697 Level 3 Est. Patient Joseph Pineda [facility] 22:18:20 CDT -RHC CPT-52688 Level 3 Est. Patient Joseph Pineda [facility] 16:46:04 CDT -RHC CPT-09090 Level 3 Est. Patient Joseph Edwin [facility] 15:39:53 CDT -RHC CPT-41604 Level 3 Est. Patient Maite Sanchez MD PhD [facility] 13:33:34 CDT -RHC CPT-09532 Level 3 Est. Patient Joseph Edwin [facility] 11:37:08 CDT -RHC CPT-57579 Level 3 Est. Patient Joseph Pineda [facility] 17:13:29 DATABASE MANAGEMENT SPECIALIST -RHC CPT-18058 Level 3 Est. Patient Joseph Edwin [facility] 18:42:44 CDT CPT-03570 Level 3 Est. Patient Joseph Pineda [facility] 16:25:39 CDT CPT-56018 Level 3 Est. Patient Casey Brower [facility] 09:52:45 CDT -RHC CPT-98008 Level 3 Est. Patient Joseph Pineda [facility] 11:03:29 DATABASE MANAGEMENT SPECIALIST -RHC CPT-29700 Level 3 Est. Patient Joseph Pineda [facility] 11:03:08 DATABASE MANAGEMENT SPECIALIST -RHC CPT-14305 Level 3 Est. Patient Joseph Pineda [facility] 14:33:31 CDT -RHC CPT-84317 Level 3 Est. Patient Joseph Edwin [facility] 17:05:02 DATABASE MANAGEMENT SPECIALIST -RHC CPT-33149 Level 3 Est. Patient Joseph Pineda [facility] 17:48:06 DATABASE MANAGEMENT SPECIALIST -RHC CPT-26897 Level 3 Est. Patient Joseph Edwin [facility] 14:59:22 DATABASE MANAGEMENT SPECIALIST -RHC CPT-36509 Level 3 Est. Patient Joseph Pineda [facility] - 21:45:56 DATABASE MANAGEMENT SPECIALIST Jose RH CPT-22169 Level 3 Est. Patient Joseph Pineda [facility] 21:29:50 CDT -RHC CPT-16290 Level 3 Est. Patient Joseph Trivedi [facility] 12:41:09 CDT -RHC Procedures Code Procedure Name Date Entry Date Standard Description CPT-21712 Postop F/U Visit 12:08:35 CDT CPT-46695 Postop F/U Visit 18:20:10 CDT CPT-A4351 Coloplast Female Cath 09:37:10 CDT CPT-86942 Urine Dip (Floor Use Only) 15:17:13 CDT CPT-94539 Dil F ureth int 15:17:13 CDT CPT-03878 Venipuncture Draw Fee 09:19:08 CDT CPT-52949 Lipid - LAB USE ONLY 09:19:07 CDT CPT-JTINJ Asp/Joint Injection 09:26:49 CDT CPT-41181 Chest 2V Frontal and Lat 14:47:43 CDT CPT-JTINJ Asp/Joint Injection 09:51:53 DATABASE MANAGEMENT SPECIALIST CPT-OV Office Visit 17:39:05 CDT CPT-OV Office Visit 15:19:50 CDT CPT-99404 Sono transvag pelvis non OB uterus ovaries cervix 18:04:34 CDT CPT-32574 Venipuncture Draw Fee 08:55:49 DATABASE MANAGEMENT SPECIALIST
--- OUTSIDE RECORDS SUMMARY | 2016-11-20 13:58 | External Medical Summary | Clinical Summary ---
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 Active NKDA Critical Inactive Adrianna Elder Conditions [...] Resolved [facility] of obstruction Binge eating 307.51 Active Joseph Pineda Bulimia nervosa disorder 08/15 08/15 Farooq DO Routine V72.31 Active Jillina Routine gynecological 12/14 12/14 [place] gynecological examination ASSISTANT ACTIVITIES DIRECTOR examination Postmenopausal 627.1 Active Jillina Postmenopausal bleeding 12/14 12/14 [place] bleeding ASSISTANT ACTIVITIES DIRECTOR Screening for V76.51 Active Ismael Coyne Screening for malignant 12/26 12/26 Amandeep malignant neoplasms of MD neoplasms of colon colon Insomnia, 307.42 Active Indigo 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 ASSISTANT ACTIVITIES DIRECTOR disorder of initiating or maintaining sleep Establish care V68.89 Active Indigo Encounters for or get 01/16 01/18 [place] ASSISTANT ACTIVITIES DIRECTOR other specified acquainted administrative visit purpose ABNORMAL [...] Instruction JANUVIA 100 1 tablet by SITAGLIPTIN 11497228337 Active Indigo Active MG TABS mouth daily PHOSPHATE [place] ASSISTANT ACTIVITIES DIRECTOR METFORMIN 2 tablets METFORMIN HCL 00092863494 Active Indigo Active HCL 500 MG by mouth [place] TB24 twice daily ASSISTANT ACTIVITIES DIRECTOR TRAMADOL HCL 1/2 po tid 2 TRAMADOL HCL 74589921906 No Jillina Active 50 MG TABS with ES 0 Longer [place] Tylenol prn 1 Active ASSISTANT ACTIVITIES DIRECTOR pain 5 / 0 2 VYVANSE 20 1 tablet 2 LISDEXAMFETAMIN 54374258303 No Jillina Active MG ORAL CAPS daily for 0 E DIMESYLATE Longer [place] binge 1 Active ASSISTANT ACTIVITIES DIRECTOR eating 5 disorder / 0 2 LASIX 20 MG 2 tablet by FUROSEMIDE 73460364451 Active Joseph W Active TAB mouth daily Farooq DO CELEBREX 200 1 tablet by CELECOXIB 04560280173 Active Joseph W Active MG CAPS mouth daily Farooq DO with meals PREDNISONE 2 tablets 2 PREDNISONE 78495636865 No Joseph W Active 20 MG TAB today, then 0 Longer Farooq DO 1 tablet 1 Active days 2-4 5 / 0 4 / 3 DIFLUCAN 100 1 tablet by 2 FLUCONAZOLE 75735747244 No Joseph W Active MG TAB mouth daily 0 Longer Farooq DO x 3 days 1 Active 5 / 0 4 / 3 AMARYL 1 MG 1 tablet GLIMEPIRIDE 02329087106 Active Joseph W Active ORAL TABS orally Farooq DO twice daily DIFLUCAN 100 1 tablet by 2 FLUCONAZOLE 58332747085 No Joseph W Active MG TABS mouth every 0 Longer Farooq DO other day 1 Active for 2 doses 5 / 0 1 / 2 3 ZOFRAN 4 MG 1 po q6hr ONDANSETRON HCL 48686340098 Active Joseph Pineda Active TABS PRN Nausea Farooq DO PREDNISONE 2 tabs 2 PREDNISONE 70194237727 No Joseph W Active 20 MG TAB daily for 3 0 Longer Farooq DO days, 1 tab 1 Active daily for 3 4 days, 1/2 / tab daily 1 for 2 days 0 / 2 5 AMOXICILLIN 2 po BID x 2 AMOXICILLIN 08718140658 No Maite C Active 500 MG CAPS 10 days 0 Longer Madril 1 Active PhD 0 / 2 0 LISINOPRIL 1 tablet by 2 LISINOPRIL 35877079341 No Maite C Active 20 MG TABS mouth 0 Longer Madril daily 1 Active PhD 0 0 POTASSIUM 2 capsule 2 POTASSIUM 24297295729 No Joseph Pineda Active CHLORIDE CR by mouth 0 CHLORIDE Longer 10 MEQ CPCR daily 1 Active 4 / 0 8 / 2 9 SPIRONOLACTO 1 tablet by 2 SPIRONOLACTONE 42742504950 No Joseph Pineda Active NE 25 MG TAB mouth daily 0 Longer [place] 1 Active 4 / 0 8 / 2 9 METFORMIN 1 tablet 2 METFORMIN HCL 47831213041 No Joseph Pineda Active HCL 500 MG by mouth 0 Longer [facility] TABS twice daily 1 Active 4 / 0 8 / 2 9 AMARYL 1 MG 1 tab twice 2 GLIMEPIRIDE 69623406802 No Joseph Pineda Active TABS daily 0 Longer [place]q 1 Active 4 / 0 8 / 2 9 PHENTERMINE 1 po q am 2 PHENTERMINE HCL 28607684319 No Joseph Pineda Active HCL 37.5 MG for wt. 0 Longer Farooq DO TABS loss 1 Active 3 / 1 2 / 2 3 PROMETHAZINE 1 tab by 2 PROMETHAZINE 83764112225 No Joseph W Active HCL 25 MG mouth every 0 HCL Longer [facility] TABS 6 hours as 1 Active needed 3 / 0 9 / 0 9 CIPROFLOXACI Take one 2 CIPROFLOXACIN 51875322490 No Joseph W Active N HCL 500 MG (1) tablet 0 HCL Longer Farooq DO TABS by mouth 1 Active twice a day 3 / 0 9 / 0 9 ABILIFY 5 MG one p.o. q. 2 ARIPIPRAZOLE 61759134255 No Joseph W Active TABS day 0 Longer [place]ooq DO 1 Active 3 / 0 9 / 0 9 HYDROCHLOROT 2 tabs 2 HYDROCHLOROTHIA 51706466363 No Joseph W Active HIAZIDE 25 every 0 ZIDE Longer Farooq DO MG TABS morning 1 Active 3 / 0 6 / 2 7 ABILIFY 2 MG 1 po q hs 2 ARIPIPRAZOLE 65795174400 No Joseph W Active TABS for major 0 Longer Far[place]q depression 1 Active 3 / 0 5 / 0 7 ADIPEX-P 1/2 tab po 2 PHENTERMINE HCL 02922092017 No Casey Active 37.5 MG CAPS q am for 0 Longer [place] weight loss 1 Active PA 3 / 0 5 / 0 1 CIPRO 500 MG 1 tablet by 2 CIPROFLOXACIN 16791251791 No Casey Active TAB mouth twice 0 HCL Longer [place] daily 1 Active PA 3 / 0 5 / 0 1 NECON 35 1 po daily 2 NORETHINDRONE-E 88235662225 No Casey Active () -35 0 ESTRADIOL Longer [place] MG-MCG TABS 1 Active PA 3 / 0 5 / 0 1 TRAMADOL HCL 1 po tid 2 TRAMADOL HCL 40339051910 No Casey Active 50 MG TABS with ES 0 Longer [place] Tylenol 1 Active PA 3 / 0 5 / 0 1 FLUCONAZOLE one p.o. q. 2 FLUCONAZOLE 20012996099 No Casey Active 100 MG TABS day 2 days 0 Longer [place] 1 Active PA 3 / 0 5 / 0 1 POTASSIUM 1 capsule 2 POTASSIUM 63837514249 No Casey Active CHLORIDE CR by mouth 0 CHLORIDE Longer 10 MEQ CPCR daily 1 Active PA 3 / 0 5 / 0 1 IMIPRAMINE Take 6 IMIPRAMINE HCL 68132388099 Active Joseph W Active HCL 50 MG tablets by [facility] TABS mouth at bedtime DIFLUCAN 100 1 tablet by 2 FLUCONAZOLE 74736330983 No Joseph W Active MG TAB mouth daily 0 Longer [place] DO 1 Active 2 / 0 2 / 2 4 METOPROLOL 1/2 tab po METOPROLOL 75255757660 Active Joseph W Active TARTRATE 25 bid TARTRATE Farooq DO MG TABS VERAPAMIL 2 po bid VERAPAMIL HCL 33713684018 Active Joseph W Active HCL CR 120 Farooq DO MG TAB CR PERMETHRIN 5 apply neck 2 PERMETHRIN 27686999005 No Joseph W Active % CREA to toes 0 Longer Farooq DO tonight and 1 Active then rinse 2 off in / morning. 0 repeat at 7 1 days / 2 0 SEROQUEL XR one p.o. q. 2 QUETIAPINE 84354325698 No Joseph W Active 50 MG evening 0 FUMARATE Longer Farooq DO [id number] 1 Active 2 / 0 1 / 2 0 TRAMADOL HCL 1-2 tablets 2 TRAMADOL HCL 35971600432 No Joseph W Active 50 MG TABS every 6-8 0 Longer Farooq DO hours as 1 Active needed for 2 pain / 0 1 / 2 0 ALPRAZOLAM 3 one p.o. ALPRAZOLAM 30675790445 Active Joseph W Active MG [id number] q.h.s. Farooq DO ALPRAZOLAM Take 1 2 ALPRAZOLAM 93962846382 No Joseph W Active XR [id number] tablet by 0 [id number] Longer Farooq DO mouth at 1 Active bedtime 1 / 2 9 DIFLUCAN 100 1 tablet by 2 FLUCONAZOLE 69961726255 No Joseph W Active MG TAB mouth daily 0 Longer [place]ooq DO 1 Active 0 / 0 6 AMBIEN 10 MG 1 tab by ZOLPIDEM 31178141800 Active Joseph W Active TAB mouth at TARTRATE [place] DO bedtime as needed for sleep DIFLUCAN 100 1 tablet DIFLUCAN 950833 FLUCONAZOLE Inactive MG TAB by mouth 100 MG TAB daily ALPRAZOLAM Take 1 ALPRAZOLAM ALPRAZOLAM Inactive XR [id number] tablet by XR [id number] mouth at [id number] bedtime TRAMADOL HCL 1-2 TRAMADOL 169043 TRAMADOL HCL Inactive 50 MG TABS tablets HCL 50 MG every 6-8 TABS hours as needed for pain SEROQUEL XR one p.o. SEROQUEL XR QUETIAPINE Inactive 50 MG q. evening 50 MG FUMARATE [id number] PERMETHRIN 5 apply neck PERMETHRIN 415253 PERMETHRIN Inactive % CREA to toes 5 % CREA tonight and then rinse off in morning. repeat at 7 days DIFLUCAN 100 1 tablet DIFLUCAN 397903 FLUCONAZOLE Inactive MG TAB by mouth 100 MG TAB daily POTASSIUM 1 capsule POTASSIUM POTASSIUM Inactive CHLORIDE CR by mouth CHLORIDE CR CHLORIDE 10 MEQ CPCR daily 10 MEQ CPCR FLUCONAZOLE one p.o. FLUCONAZOLE 19760111 FLUCONAZOLE Inactive 100 MG TABS q. day 2 100 MG TABS days TRAMADOL HCL 1 po tid TRAMADOL 215344 TRAMADOL HCL Inactive 50 MG TABS with ES HCL 50 MG Tylenol TABS NECON 1/35 1 po daily NECON 1/35 NORETHINDRONE- Inactive (28) 1-35 (28) 1-35 ETH ESTRADIOL MG-MCG TABS MG-MCG TABS CIPRO 500 MG 1 tablet CIPRO 500 036479 CIPROFLOXACIN Inactive TAB by mouth MG TAB HCL twice daily ADIPEX-P 1/2 tab po ADIPEX-P 448610 PHENTERMINE Inactive 37.5 MG CAPS q am for 37.5 MG HCL weight CAPS loss ABILIFY 2 MG 1 po q hs ABILIFY 2 252627 ARIPIPRAZOLE Inactive TABS for major MG TABS depression HYDROCHLOROT 2 tabs HYDROCHLORO 958678 HYDROCHLOROTHI Inactive HIAZIDE 25 every THIAZIDE 25 AZIDE MG TABS morning MG TABS ABILIFY 5 MG one p.o. ABILIFY 5 782914 ARIPIPRAZOLE Inactive TABS q. day MG TABS CIPROFLOXACI Take one CIPROFLOXAC 060561 CIPROFLOXACIN Inactive N HCL 500 MG (1) tablet IN HCL 500 HCL TABS by mouth MG TABS twice a day PROMETHAZINE 1 tab by PROMETHAZIN 452557 PROMETHAZINE Inactive HCL 25 MG mouth E HCL 25 MG HCL TABS every 6 TABS hours as needed PHENTERMINE 1 po q am PHENTERMINE 122080 PHENTERMINE Inactive HCL 37.5 MG for wt. HCL 37.5 MG HCL TABS loss TABS AMARYL 1 MG 1 tab AMARYL 1 MG 202109 GLIMEPIRIDE Inactive TABS twice TABS daily METFORMIN 1 tablet METFORMIN 314364 METFORMIN HCL Inactive HCL 500 MG by mouth HCL 500 MG TABS twice TABS daily SPIRONOLACTO 1 tablet SPIRONOLACT 381845 SPIRONOLACTONE Inactive NE 25 MG TAB by mouth ONE 25 MG daily TAB POTASSIUM 2 capsule POTASSIUM POTASSIUM Inactive CHLORIDE CR by mouth CHLORIDE CR CHLORIDE 10 MEQ CPCR daily 10 MEQ CPCR LISINOPRIL 1 tablet LISINOPRIL 594996 LISINOPRIL Inactive 20 MG TABS by mouth 20 MG TABS daily DIFLUCAN 100 1 tablet DIFLUCAN 750867 FLUCONAZOLE Inactive MG TABS by mouth 100 MG TABS every other day for 2 doses DIFLUCAN 100 1 tablet DIFLUCAN 153170 FLUCONAZOLE Inactive MG TAB by mouth 100 MG TAB daily x 3 days PREDNISONE 2 tablets PREDNISONE 388611 PREDNISONE Inactive 20 MG TAB today, 20 MG TAB then 1 tablet days 2-4 VYVANSE 20 1 tablet VYVANSE 20 LISDEXAMFETAMI Inactive MG ORAL CAPS daily for MG ORAL NE DIMESYLATE binge CAPS eating disorder TRAMADOL HCL 1/2 po tid TRAMADOL 219632 TRAMADOL HCL Inactive 50 MG TABS with ES HCL 50 MG Tylenol TABS prn pain AMOXICILLIN 2 po BID x AMOXICILLIN 072759 AMOXICILLIN Inactive 500 MG CAPS 10 days 500 MG CAPS PREDNISONE 2 tabs PREDNISONE 847877 PREDNISONE Inactive 20 MG TAB daily for [...] pressure, diastolic - 8462-4 92 mm[Hg] BP unnez blood pressure, systolic - 8480-6 150 mm[Hg] [...] HGBA1C - Chemistry sodium, serum 140 mmol/L 586-193 5140/04/13 potassium, serum 3.9 mmol/L 3.5-5.2 chloride, serum [...] 4.3-6.0 Lab Report: CBC, Comp. Metabolic Panel, PSYCHIATRIC - Hematology mean corpuscular volume, RBC 92 [...] 198 10^3/MM^3 10*3/mm3 142-424 Lab Report: Chlamydia/GC APTIMA/00320 - Lab chlamydia DNA probe NOT DETECTED NOT DETECTED Lab Report: Chlamydia/GC APTIMA/90920 - Microbiology Neisseria gonorrhoeae DNA probe NOT DETECTED NOT DETECTED Lab Report: Comp. Metabolic Panel, Lipid Panel - Chemistry sodium, serum 136 mmol/L 880-564 4828/01/04 carbon dioxide, venous blood 27.0 mmol/L 21.0-32.0 potassium, serum 4.6 mmol/L 3.5-5.2 chloride, serum 98 mmol/L 98-107 blood glucose 174 mg/dL 65-110 urea nitrogen, blood 12 mg/dL 7-18 creatinine, serum 0.78 mg/dL 0.55-1.30 alanine aminotransferase (SGPT), serum 65 U/L 12-78 aspartate aminotransferase (SGOT), serum 34 U/L 15-37 calcium, serum 8.9 mg/dL 8.5-10.1 bilirubin, serum, total 0.40 mg/dL 0.00-1.00 cholesterol, serum 219 mg/dL 471-725 3092/01/04 triglyceride, serum, fasting 214 mg/dL 30-200 HDL [...] mg/g mg/g{creat} 0-29 sodium, serum 140 mmol/L 592-097 7705/07/21 potassium, serum 3.9 mmol/L 3.5-5.2 chloride, serum [...] % 11.6-14.8 platelet count 234 10^3/MM^3 10*3/mm3 550-756 5739/08/12 mean corpuscular hemoglobin, RBC 30.6 pg 27.0-31.2 leukocyte count, blood 6.7 10^3/MM^3 10*3/mm3 4.6-10.2 erythrocyte (RBC) count 4.73 10^6/MM^3 10*6/mm3 4.04-5.48 hemoglobin, blood 14.5 g/dL 12.0-16.0 hematocrit, blood 43.1 % 36.0-46.0 Encounters Code Encounter Date Provider Facility CPT-03853 Level 3 Est. Patient Indigo Sexton ALEJANDRO [facility] 18:59:38 CDT CPT-67022 Level 3 Est. Patient Joseph Pineda [facility] 14:42:12 CDT -[facility] CPT-79857 Level 3 Est. Patient Joseph Pineda [facility] 22:18:20 CDT -[facility]HC CPT-45342 Level 3 Est. Patient Joseph Pineda [facility] 16:46:04 CDT -[facility] CPT-84524 Level 3 Est. Patient Joseph Trivedi [facility] 15:39:53 CDT -RHC CPT-04694 Level 3 Est. Patient Maite Sanchez MD PhD [facility] 13:33:34 CDT -[facility]HC CPT-42729 Level 3 Est. Patient Joseph Pineda [facility] 11:37:08 CDT -[facility] CPT-65961 Level 3 Est. 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 Patient Joseph Edwin [facility] 18:42:44 CDT CPT-98362 Level 3 Est. Patient Joseph Edwin [facility] 16:25:39 CDT CPT-35197 Level 3 Est. Patient Casey Garzaner [facility] 09:52:45 CDT -RHC CPT-91238 Level 3 Est. Patient Joseph Edwin [facility] 11:03:29 VEGETABLE HARVEST WORKER -[facility]HC CPT-67340 Level 3 Est. 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 Patient [facility] 14:33:31 CDT -RHC CPT-10892 Level 3 Est. Patient [facility] 17:05:02 VEGETABLE HARVEST WORKER -RHC CPT-77148 Level 3 Est. Patient [facility] 17:48:06 VEGETABLE HARVEST WORKER -RHC CPT-57968 Level 3 Est. Patient [facility] 14:59:22 VEGETABLE HARVEST WORKER -RHC CPT-78474 Level 3 Est. Patient [facility] - 21:45:56 VEGETABLE HARVEST WORKER [place] [facility] CPT-93681 Level 3 Est. Patient [facility] 21:29:50 CDT -RHC CPT-33675 Level 3 Est. 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
--- OUTSIDE RECORDS SUMMARY | 2016-11-20 13:59 | External Medical Summary | Clinical Summary ---
:1965 Author Organization [facility] Address [address] [address] Phone Allergies, Adverse Reactions, Alerts Allergy Name Reaction Description Start Date Severity Status Provider NKDA Critical Active Indigo Yonickieum SOA ENGINEER NKDA Critical No Longer Indigo Yokum SOA ENGINEER Active NKDA Critical Inactive Adrianna Elder [...] Resolved Indigo Other malaise 05/24 07/02 Yokum SOA ENGINEER and fatigue SLEEP APNEA, 327.23 Active Joseph Pineda Obstructive OBSTRUCTIVE, 06/27 06/27 Farooq DO sleep apnea MILD (adult) (pediatric) OVERWEIGHT 278.02 Inactive Joseph Pineda Overweight 06/28 06/28 Farooq DO Obesity 278.00 Active Indigo Obesity, 06/28 10/18 Yokum SOA ENGINEER unspecified OTH GENERAL V70.3 Resolved Maite Gutierrez Other general MEDICAL Laura ONEAL medical EXAMINATION PhD examination for ADMIN PURPOSES administrative purposes OTHER ABNORMAL 790.29 Resolved Maite C Other abnormal GLUCOSE 05/20 Laura ONEAL glucose PhD ACUTE 466.0 Resolved Maite C Acute BRONCHITIS 09/02 Laura ONEAL bronchitis PhD DEPENDENT 782.3 Resolved Indigo Edema EDEMA, LEGS, 10/29 10/18 Yokum SOA ENGINEER BILATERAL HYPOKALEMIA, 276.8 Resolved Indigo Hypopotassemia MILD 10/29 07/02 Youm SOA ENGINEER Diabetes, Type 250.00 Inactive Joseph Pineda Diabetes 2 06/27 06/27 Farooq DO mellitus without mention of complication, type II or unspecified type, not stated as uncontrolled Diabetes 250.02 Resolved Indigo Diabetes mellitus, type 06/27 SOA ENGINEER mellitus II, without mention uncontrolled of complication, [...] Resolved Indigo Routine gynecological 12/14 07/02 Yo SOA ENGINEER gynecological examination examination Postmenopausal 627.1 Resolved Indigo Postmenopausal bleeding 12/14 SOA ENGINEER bleeding Screening for V76.51 Resolved Indigo Screening for malignant 12/26 07/02 Yokum SOA ENGINEER malignant neoplasms of neoplasms of colon colon Insomnia, 307.42 Active Indigo 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 SOA ENGINEER disorder of initiating or maintaining sleep Establish care V68.89 Resolved Indigo Encounters for or get 01/16 07/02 Yo SOA ENGINEER other specified acquainted administrative visit purpose Weakness, left 342.90 Resolved Indigo Hemiplegia, side of body 06/20 10/18 Yokum SOA ENGINEER unspecified, affecting unspecified side TIA 435.9 Active Indigo Unspecified 06/20 07/02 Yokum SOA ENGINEER transient cerebral ischemia Knee pain, 719.46 Active Indigo Pain in joint bilateral 06/20 10/18 Yokum SOA ENGINEER involving lower leg Bronchitis 490 Resolved Indigo Bronchitis, not 07/23 10/18 Yokum SOA ENGINEER specified as acute or chronic Diabetes 357.2 Active Maliheh Polyneuropathy mellitus, 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OPERATING ENGINEER 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y Knee pain, 719.46 Active Indigo Pain in joint right 06/20 10/18 Yokum SOA ENGINEER involving lower leg Jesi 112.3 Active Indigo Candidiasis of intertrigo 10/09 10/18 Yokum SOA ENGINEER skin and nails Hyperlipidemia 272.4 Active Anne Other and 12/24 12/24 Neil unspecified RMA hyperlipidemia Incontinence, 788.33 Active Indigo Mixed mixed, 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 SOA ENGINEER incontinence urge/stress (female) (male) Female stress [...] EDEMA, ICD-782.3 Inactive Indigo Yokum LEGS, BILATERAL SOA ENGINEER Diabetes mellitus, ICD-250.02 Inactive Indigo Yokum type II, SOA ENGINEER uncontrolled FATIGUE ICD-780.79 Inactive Indigo Yokum SOA ENGINEER HYPOKALEMIA, MILD ICD-276.8 Inactive Indigo Yokum SOA ENGINEER Routine ICD-V72.31 Inactive Indigo Yokum gynecological SOA ENGINEER examination Postmenopausal ICD-627.1 Inactive Indigo Yokum 2015 bleeding SOA ENGINEER Screening for ICD-V76.51 Inactive Indigo Yokum 2015 malignant SOA ENGINEER neoplasms of colon Establish care or ICD-V68.89 Inactive Indigo Yokum get acquainted SOA ENGINEER visit Weakness, left ICD-342.90 Inactive Indigo Yokum side of body SOA ENGINEER Bronchitis ICD-490 Inactive Indigo Yokum SOA ENGINEER Sinusitis, ICD-461.1 Inactive Ismael Coyne frontal, acute Amandeep ONEAL Laryngitis, acute ICD-464.00 Inactive Ismael Coyne Amandeep ONEAL Medication List Medication Instructions Start Stop Generic NDC Status Provider Patient Date Date Name Instruction METFORMIN 2 tablets METFORMIN 19833707518 No Indigo Active HCL 500 MG by mouth HCL Longer Yokum TB24 twice Active SOA ENGINEER daily AMARYL 1 MG 1 tablet GLIMEPIRID 82337832137 No Indigo Active ORAL TABS orally E Longer Yokum twice Active SOA ENGINEER daily NYSTATIN apply to NYSTATIN 92264891213 Active Indigo Active 950420 rash TID Yokum UNIT/GM PRN SOA ENGINEER CREA TROKENDI XR 2 tab TOPIRAMATE 59200521024 Active Malihe Active 100 MG ORAL daily h [id number] Ziglar i OPERATING ENGINEER METOPROLOL 1 tab po METOPROLOL 51743958372 Active Indigo Active TARTRATE 25 bid TARTRATE Yokum MG TABS SOA ENGINEER AZITHROMYCI 2 po qd x AZITHROMYC 81056143920 No Jillin Active N 250 MG 1 day, IN Longer a TABS then 1 po Active Frazel qd x 4 l SOA ENGINEER days PREDNISONE 2 pills PREDNISONE 50556030967 No Jillin Active 20 MG TAB daily x 4 Longer a days Active Frazel l SOA ENGINEER PIOGLITAZON take one PIOGLITAZO 02989651348 Active Malihe Active E HCL 30 MG a day NE HCL h ORAL TABS Ziglar i OPERATING ENGINEER JANUVIA 100 1 tablet SITAGLIPTI 35928667881 No Indigo Active MG TABS by mouth N Longer Yokum daily PHOSPHATE Active SOA ENGINEER ATORVASTATI 1 pill by ATORVASTAT 98305205017 Active Idnigo Active N CALCIUM mouth IN CALCIUM Yokum 10 MG TABS nightly, SOA ENGINEER for cholester ol ASPIRIN 81 1 po qd ASPIRIN 53492253782 Active Indigo Active MG ORAL Yokum TABS SOA ENGINEER NITROFURANT One NITROFURAN 54867434000 No Indigo Active OIN MONOHYD capsule TOIN Longer Yokum MACRO 100 BID for MONOHYD Active SOA ENGINEER MG CAPS UTI MACRO TRAMADOL 1/2 po TRAMADOL 82208589115 No Jillin Active HCL 50 MG tid with HCL Longer a TABS ES Active Frazel Tylenol l SOA ENGINEER prn pain VYVANSE 20 1 tablet LISDEXAMFE 19879720113 No Jillin Active MG ORAL daily for TAMINE Longer a CAPS binge DIMESYLATE Active Frazel eating l SOA ENGINEER disorder LASIX 20 MG 2 tablet FUROSEMIDE 57381751012 Active Indigo Active TAB by mouth Yokum daily SOA ENGINEER CELEBREX 1 tablet CELECOXIB 83801736922 Active Indigo Active 200 MG CAPS by mouth Yokum daily SOA ENGINEER with meals PREDNISONE 2 tablets PREDNISONE 32275702043 No Joseph Active 20 MG TAB today, Longer W Farooq then 1 Active DO tablet days 2-4 DIFLUCAN 1 tablet FLUCONAZOL 39032576129 No Joseph Active 100 MG TAB by mouth E Longer W Farooq daily x 3 Active DO days DIFLUCAN 1 tablet FLUCONAZOL 23540494612 No Joseph Active 100 MG TABS by mouth E Longer W Farooq every Active DO other day for 2 doses ZOFRAN 4 MG 1 po q6hr ONDANSETRO 79474574883 Active Joseph Active TABS PRN N HCL W Farooq Nausea DO PREDNISONE 2 tabs PREDNISONE 54120663882 No Joseph Active 20 MG TAB daily for Longer W Farooq 3 days, 1 Active DO tab daily for 3 days, 1/2 tab daily for 2 days AMOXICILLIN 2 po BID AMOXICILLI 02221010402 No Maite C Active 500 MG CAPS x 10 days N Longer Madril Active PhD LISINOPRIL 1 tablet LISINOPRIL 23717217177 No Maite C Active 20 MG TABS by mouth Longer Madril daily Active PhD POTASSIUM 2 capsule POTASSIUM 41218716407 No Joseph Active CHLORIDE CR by mouth CHLORIDE Longer W Farooq 10 MEQ CPCR daily Active DO SPIRONOLACT 1 tablet SPIRONOLAC 11864228435 No Joseph Active ONE 25 MG by mouth TONE Longer W Farooq TAB daily Active DO METFORMIN 1 tablet METFORMIN 00510903580 No Joseph Active HCL 500 MG by mouth HCL Longer W Farooq TABS twice Active DO daily AMARYL 1 MG 1 tab GLIMEPIRID 54549335475 No Joseph Active TABS twice E Longer W Farooq daily Active DO PHENTERMINE 1 po q am PHENTERMIN 02512453920 No Joseph Active HCL 37.5 MG for wt. E HCL Longer W Farooq TABS loss Active DO PROMETHAZIN 1 tab by PROMETHAZI 69195158875 No Joseph Active E HCL 25 MG mouth NE HCL Longer W Farooq TABS every 6 Active DO hours as needed CIPROFLOXAC Take one CIPROFLOXA 70100329789 No Joseph Active IN HCL 500 (1) DELORES HCL Longer W Farooq MG TABS tablet by Active DO mouth twice a day ABILIFY 5 one p.o. ARIPIPRAZO 55564413725 No Joseph Active MG TABS q. day LE Longer W Farooq Active DO HYDROCHLORO 2 tabs HYDROCHLOR 38709980751 No Joseph Active THIAZIDE 25 every OTHIAZIDE Longer W Farooq MG TABS morning Active DO ABILIFY 2 1 po q hs ARIPIPRAZO 60147412488 No Joseph Active MG TABS for major LE Longer W Farooq depressio Active DO n ADIPEX-P 1/2 tab PHENTERMIN 22880389371 No Casey Active 37.5 MG po q am E HCL Longer Leonarda CAPS for Active PA weight loss CIPRO 500 1 tablet CIPROFLOXA 91198568222 No Casey Active MG TAB by mouth DELORES HCL Longer Leonarda twice Active PA daily NECON 1/35 1 po NORETHINDR 35456700820 No Casey Active (28) 1-35 daily ONE-ETH Longer Leonarda MG-MCG TABS ESTRADIOL Active PA TRAMADOL 1 po tid TRAMADOL 31798398186 No Casey Active HCL 50 MG with ES HCL Longer Leonarda TABS Tylenol Active PA FLUCONAZOLE one p.o. FLUCONAZOL 67900604741 No Casey Active 100 MG TABS q. day 2 E Longer Leonarda days Active PA POTASSIUM 1 capsule POTASSIUM 24434441599 No Casey Active CHLORIDE CR by mouth CHLORIDE Longer 10 MEQ CPCR daily Active PA IMIPRAMINE Take 6 IMIPRAMINE 37773673703 Active Indigo Active HCL 50 MG tablets HCL Yokum TABS by mouth SOA ENGINEER at bedtime DIFLUCAN 1 tablet FLUCONAZOL 44241971929 No Joseph Active 100 MG TAB by mouth E Longer W Farooq daily Active DO VERAPAMIL 2 po bid VERAPAMIL 76112930740 Active Indigo Active HCL CR 120 HCL Yokum MG TAB CR SOA ENGINEER PERMETHRIN apply PERMETHRIN 21527485515 No Joseph Active 5 % CREA neck to Longer W Farooq toes Active DO tonight and then rinse off in morning. repeat at 7 days SEROQUEL XR one p.o. QUETIAPINE 17942216054 No Joseph Active 50 MG q. FUMARATE Longer W Farooq [id number] evening Active DO TRAMADOL 1-2 TRAMADOL 60560462878 No Joseph Active HCL 50 MG tablets HCL Longer W Farooq TABS every 6-8 Active DO hours as needed for pain ALPRAZOLAM one p.o. ALPRAZOLAM 01974110147 Active Indigo Active 3 MG q.h.s. Yokum [id number] SOA ENGINEER ALPRAZOLAM Take 1 ALPRAZOLAM 54724086594 No Joseph Active XR tablet by [id number] Longer W Farooq [id number] mouth at Active DO bedtime DIFLUCAN 1 tablet FLUCONAZOL 00107681773 No Joseph Active 100 MG TAB by mouth E Longer W Farooq daily Active DO AMBIEN 10 1 tab by ZOLPIDEM 62728073223 Active Indigo Active MG TAB mouth at TARTRATE Yokum bedtime SOA ENGINEER as needed for sleep DIFLUCAN 100 1 tablet DIFLUCAN 038933 FLUCONAZOLE Inactive MG TAB by mouth 100 MG TAB daily ALPRAZOLAM Take 1 ALPRAZOLAM ALPRAZOLAM Inactive XR [id number] tablet by XR [id number] mouth at [id number] bedtime TRAMADOL HCL 1-2 TRAMADOL 997703 TRAMADOL HCL Inactive 50 MG TABS tablets HCL 50 MG every 6-8 TABS hours as needed for pain SEROQUEL XR one p.o. SEROQUEL XR QUETIAPINE Inactive 50 MG q. 50 MG FUMARATE BE30G-AOR evening [id number] PERMETHRIN 5 apply PERMETHRIN 805611 PERMETHRIN Inactive % CREA neck to 5 % CREA toes tonight and then rinse off in morning. repeat at 7 days DIFLUCAN 100 1 tablet DIFLUCAN 265905 FLUCONAZOLE Inactive MG TAB by mouth 100 MG TAB daily POTASSIUM 1 capsule POTASSIUM POTASSIUM Inactive CHLORIDE CR by mouth CHLORIDE CR CHLORIDE 10 MEQ CPCR daily 10 MEQ CPCR FLUCONAZOLE one p.o. FLUCONAZOLE 057094 FLUCONAZOLE Inactive 100 MG TABS q. day 2 100 MG TABS days TRAMADOL HCL 1 po tid TRAMADOL 002997 TRAMADOL HCL Inactive 50 MG TABS with ES HCL 50 MG Tylenol TABS NECON 1/35 1 po NECON 1/35 NORETHINDRONE- Inactive (28) 1-35 daily (28) 1-35 ETH ESTRADIOL MG-MCG TABS MG-MCG TABS CIPRO 500 MG 1 tablet CIPRO 500 520171 CIPROFLOXACIN Inactive TAB by mouth MG TAB HCL twice daily ADIPEX-P 1/2 tab ADIPEX-P 169005 PHENTERMINE Inactive 37.5 MG CAPS po q am 37.5 MG HCL for CAPS weight loss ABILIFY 2 MG 1 po q hs ABILIFY 2 267123 ARIPIPRAZOLE Inactive TABS for major MG TABS depressio n HYDROCHLOROT 2 tabs HYDROCHLORO 877913 HYDROCHLOROTHI Inactive HIAZIDE 25 every THIAZIDE 25 AZIDE MG TABS morning MG TABS ABILIFY 5 MG one p.o. ABILIFY 5 581679 ARIPIPRAZOLE Inactive TABS q. day MG TABS CIPROFLOXACI Take one CIPROFLOXAC 469344 CIPROFLOXACIN Inactive N HCL 500 MG (1) IN HCL 500 HCL TABS tablet by MG TABS mouth twice a day PROMETHAZINE 1 tab by PROMETHAZIN 345449 PROMETHAZINE Inactive HCL 25 MG mouth E HCL 25 MG HCL TABS every 6 TABS hours as needed PHENTERMINE 1 po q am PHENTERMINE 219686 PHENTERMINE Inactive HCL 37.5 MG for wt. HCL 37.5 MG HCL TABS loss TABS AMARYL 1 MG 1 tab AMARYL 1 MG 013697 GLIMEPIRIDE Inactive TABS twice TABS daily METFORMIN 1 tablet METFORMIN 465898 METFORMIN HCL Inactive HCL 500 MG by mouth HCL 500 MG TABS twice TABS daily SPIRONOLACTO 1 tablet SPIRONOLACT 430659 SPIRONOLACTONE Inactive NE 25 MG TAB by mouth ONE 25 MG daily TAB POTASSIUM 2 capsule POTASSIUM POTASSIUM Inactive CHLORIDE CR by mouth CHLORIDE CR CHLORIDE 10 MEQ CPCR daily 10 MEQ CPCR LISINOPRIL 1 tablet LISINOPRIL 146620 LISINOPRIL Inactive 20 MG TABS by mouth 20 MG TABS daily DIFLUCAN 100 1 tablet DIFLUCAN 19760111 FLUCONAZOLE Inactive MG TABS by mouth 100 MG TABS every other day for 2 doses DIFLUCAN 100 1 tablet DIFLUCAN 094660 FLUCONAZOLE Inactive MG TAB by mouth 100 MG TAB daily x 3 days PREDNISONE 2 tablets PREDNISONE 323335 PREDNISONE Inactive 20 MG TAB today, 20 MG TAB then 1 tablet days 2-4 VYVANSE 20 1 tablet VYVANSE 20 LISDEXAMFETAMI Inactive MG ORAL CAPS daily for MG ORAL NE DIMESYLATE binge CAPS eating disorder TRAMADOL HCL 1/2 po TRAMADOL 585545 TRAMADOL HCL Inactive 50 MG TABS tid with HCL 50 MG ES TABS Tylenol prn pain JANUVIA 100 1 tablet JANUVIA 100 SITAGLIPTIN Inactive MG TABS by mouth MG TABS PHOSPHATE daily AMARYL 1 MG 1 tablet AMARYL 1 MG 468032 GLIMEPIRIDE Inactive ORAL TABS orally ORAL TABS twice daily METFORMIN 2 tablets METFORMIN METFORMIN HCL Inactive HCL 500 MG by mouth HCL 500 MG TB24 twice TB24 daily AMOXICILLIN 2 po BID AMOXICILLIN 507272 AMOXICILLIN Inactive 500 MG CAPS x 10 days 500 MG CAPS PREDNISONE 2 tabs PREDNISONE 629519 PREDNISONE Inactive 20 MG TAB daily for 20 MG TAB 3 days, 1 tab daily for 3 days, 1/2 tab daily for 2 days NITROFURANTO One NITROFURANT 6971407 NITROFURANTOIN Inactive IN MONOHYD capsule OIN MONOHYD MONOHYD MACRO MACRO 100 MG BID for MACRO 100 CAPS UTI MG CAPS PREDNISONE 2 pills PREDNISONE 099991 PREDNISONE Inactive 20 MG TAB daily x 4 20 MG TAB days AZITHROMYCIN 2 po qd x AZITHROMYCI 7707891 AZITHROMYCIN Inactive 250 MG TABS 1 day, [...] HGBA1C - Chemistry sodium, serum 140 mmol/L 181-448 7944/06/03 potassium, serum 3.9 mmol/L 3.5-5.2 chloride, serum [...] Panel - Chemistry sodium, serum 136 mmol/L 828-957 1578/01/04 carbon dioxide, venous blood 27.0 mmol/L 21.0-32.0 potassium, serum 4.6 mmol/L 3.5-5.2 chloride, serum 98 mmol/L 98-107 blood glucose 174 mg/dL 65-110 urea nitrogen, blood 12 mg/dL 7-18 creatinine, serum 0.78 mg/dL 0.55-1.30 alanine aminotransferase (SGPT), serum 65 U/L 12-78 aspartate aminotransferase (SGOT), serum 34 U/L 15-37 calcium, serum 8.9 mg/dL 8.5-10.1 bilirubin, serum, total 0.40 mg/dL 0.00-1.00 cholesterol, serum 219 mg/dL 542-069 7420/01/04 triglyceride, serum, fasting 214 mg/dL 30-200 HDL cholesterol, serum 39 mg/dL 32-96 LDL cholesterol, serum 137 mg/dL 0-130 Lab Report: Lipid Panel - Chemistry cholesterol, serum 157 mg/dL 315-681 5024/08/22 triglyceride, serum, fasting 215 mg/dL 30-200 HDL [...] mg/dL Encounters Code Encounter Date Provider Facility CPT-41616 Level 4 New Patient Yury Benoit MD [facility] 15:17:12 CDT CPT-06095 Level 3 Est[facility] [place] CPT-09637 Level 4 Est. Patient [facility] - 10:01:06 CDT [place] CPT-36329 Level 3 Est. Patient [facility] 08:58:07 CDT OPERATING ENGINEER CPT-98441 Level 3 Est. Patient Faby Marino [facility] 14:40:56 CDT SOA ENGINEER CPT-57860 Level 4 Est. Patient [facility] 17:29:53 FLAME BRAZING MACHINE OPERATOR OPERATING ENGINEER CPT-77864 Level 4 Est. Patient Indigo Sexton [facility] 09:51:54 FLAME BRAZING MACHINE OPERATOR CPT-03550 Level 3 Est. Patient Indigo Sexton [facility] 18:59:38 CDT CPT-14766 Level 3 Est. Patient Joseph Pineda [facility] 14:42:12 CDT -[facility] CPT-98430 Level 3 Est. Patient Joseph Pineda [facility] 22:18:20 CDT -[facility] CPT-30925 Level 3 Est. Patient Joseph Pineda [facility] 16:46:04 CDT -[facility] CPT-76194 Level 3 Est. Patient Joseph Pineda [facility] 15:39:53 CDT -[facility] CPT-13810 Level 3 Est. Patient Maite Sanchez MD [facility] 13:33:34 CDT -[facility] CPT-29451 Level 3 Est. Patient Joseph Pineda [facility] 11:37:08 CDT -[facility] CPT-30356 Level 3 Est. Patient Joseph Pineda [facility] 17:13:29 FLAME BRAZING MACHINE OPERATOR -[facility] CPT-12135 Level 3 Est. Patient Joseph Edwin [facility] 18:42:44 CDT CPT-80671 Level 3 Est. Patient Joseph Edwin [facility] 16:25:39 CDT CPT-68893 Level 3 Est. Patient Casey ARCHIBALD [facility] 09:52:45 CDT -[facility] CPT-03719 Level 3 Est. Patient Joseph Edwin [facility] 11:03:29 FLAME BRAZING MACHINE OPERATOR -[facility] CPT-92120 Level 3 Est. Patient Joseph Edwin [facility] 11:03:08 FLAME BRAZING MACHINE OPERATOR -[facility] CPT-67413 Level 3 Est. Patient Joseph Edwin [facility] 14:33:31 CDT -[facility] CPT-38425 Level 3 Est. Patient [facility] 17:05:02 FLAME BRAZING MACHINE OPERATOR -[facility] CPT-51621 Level 3 Est. Patient Joseph Pineda [facility] 17:48:06 FLAME BRAZING MACHINE OPERATOR -[facility] CPT-07914 Level 3 Est. Patient Joseph Pineda [facility] 14:59:22 FLAME BRAZING MACHINE OPERATOR -[facility] CPT-40863 Level 3 Est. Patient Joseph Pineda [facility] - 21:45:56 FLAME BRAZING MACHINE OPERATOR [place] [facility] CPT-26042 Level 3 Est. Patient Joseph Pineda [facility] 21:29:50 CDT -[facility] CPT-02598 Level 3 Est. Patient Joseph Pineda [facility] 12:41:09 CDT -[facility] Procedures Code Procedure Name Date Entry Date Standard Description CPT-A4351 Coloplast Female Cath 09:37:10 CDT CPT-56832 Urine Dip (Floor Use Only) 15:17:13 CDT CPT-32168 Dil F ureth int 15:17:13 CDT CPT-86890 Venipuncture Draw Fee 09:19:08 CDT CPT-97149 Lipid - LAB USE ONLY 09:19:07 CDT CPT-JTINJ Asp/Joint Injection 09:26:49 CDT CPT-16934 Chest 2V Frontal and Lat 14:47:43 CDT CPT-JTINJ Asp/Joint Injection 09:51:53 FLAME BRAZING MACHINE OPERATOR CPT-OV Office Visit 17:39:05 CDT CPT-OV Office Visit 15:19:50 CDT CPT-93084 Sono transvag pelvis non OB uterus ovaries cervix 18:04:34 CDT CPT-49525 Venipuncture Draw Fee 08:55:49 FLAME BRAZING MACHINE OPERATOR
--- OUTSIDE RECORDS SUMMARY | 2016-11-20 13:59 | External Medical Summary | Clinical Summary ---
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 METFORMIN 2 tablet METFORMIN HCL 76992463453 Active Joseph Pineda Active HCL 500 MG daily for Farooq DO TB24 blood sugars LASIX 20 2 tablet by FUROSEMIDE 74625794191 Active Joseph Pineda Active MG TAB mouth daily Farooq DO CELEBREX 1 tablet by CELECOXIB 76170791265 Active Joseph Pineda Active 200 MG mouth daily Farooq DO CAPS with meals PREDNISONE 2 tablets 2 PREDNISONE 89064338633 No Joseph Pineda Active 20 MG TAB today, then 0 Longer Farooq DO 1 tablet 1 Active days 2-4 5 / 0 4 / 3 DIFLUCAN 1 tablet by 2 FLUCONAZOLE 62961394072 No Joseph W Active 100 MG TAB mouth daily 0 Longer Farooq DO x 3 days 1 Active 5 / 0 4 / 3 AMARYL 1 1 tablet GLIMEPIRIDE 41451615056 Active Joseph Pineda Active MG ORAL orally Farooq DO TABS twice daily DIFLUCAN 1 tablet by 2 FLUCONAZOLE 62329169341 No Joseph W Active 100 MG mouth every 0 Longer Farooq DO TABS other day 1 Active for 2 doses 5 / 0 1 / 2 3 ZOFRAN 4 1 po q6hr ONDANSETRON HCL 34839290468 Active Bam Active MG TABS PRN Nausea W Luis ONEAL PREDNISONE 2 tabs 2 PREDNISONE 40655722278 No Joseph Pineda Active 20 MG TAB daily for 3 0 Longer Farooq DO days, 1 tab 1 Active daily for 3 4 days, 1/2 / tab daily 1 for 2 days 0 / 2 5 TRAMADOL 1/2 po tid TRAMADOL HCL 21790435593 Active Joseph Pineda Active HCL 50 MG with ES Farooq DO TABS Tylenol prn pain AMOXICILLI 2 po BID x 2 AMOXICILLIN 25323893594 No Maite C Active N 500 MG 10 days 0 Longer Madril CAPS 1 Active PhD 0 / 2 0 LISINOPRIL 1 tablet by 2 LISINOPRIL 33813003395 No Maite C Active 20 MG TABS mouth 0 Longer Madril daily 1 Active PhD 0 / 1 0 POTASSIUM 2 capsule 2 POTASSIUM CHLORIDE 18421560386 No Joseph Pineda Active CHLORIDE by mouth 0 Longer Farooq DO CR 10 MEQ daily 1 Active CPCR 8 2 9 SPIRONOLAC 1 tablet by 2 SPIRONOLACTONE 17854757030 No Joseph Pineda Active TONE 25 MG mouth daily 0 Longer Farooq DO TAB 1 Active 4 / 0 8 / 2 9 METFORMIN 1 tablet 2 METFORMIN HCL 12093913930 No Joseph Pineda Active HCL 500 MG by mouth 0 Longer Farooq DO TABS twice daily 1 Active 4 / 0 8 / 2 9 AMARYL 1 1 tab twice 2 GLIMEPIRIDE 49608407039 No Joseph W Active MG TABS daily 0 Longer Farooq DO 1 Active 4 / 0 8 / 2 9 PHENTERMIN 1 po q am 2 PHENTERMINE HCL 98610846703 No Joseph W Active E HCL 37.5 for wt. 0 Longer Farooq DO MG TABS loss 1 Active 3 / 1 2 / 2 3 PROMETHAZI 1 tab by 2 PROMETHAZINE HCL 45226080076 No Joseph W Active NE HCL 25 mouth every 0 Longer Farooq DO MG TABS 6 hours as 1 Active needed 3 / 0 9 / 0 9 CIPROFLOXA Take one 2 CIPROFLOXACIN HCL 84851777778 No Joseph W Active DELORES HCL (1) tablet 0 Longer Farooq DO 500 MG by mouth 1 Active TABS twice a day 3 / 0 9 / 0 9 ABILIFY 5 one p.o. q. 2 ARIPIPRAZOLE 74509880990 No Joseph W Active MG TABS day 0 Longer Farooq DO 1 Active 3 / 0 9 / 0 9 HYDROCHLOR 2 tabs 2 HYDROCHLOROTHIAZID 13731201460 No Joseph W Active OTHIAZIDE every 0 E Longer Farooq DO 25 MG TABS morning 1 Active 3 / 0 6 / 2 7 ABILIFY 2 1 po q hs 2 ARIPIPRAZOLE 18791561737 No Joseph W Active MG TABS for major 0 Longer Farooq DO depression 1 Active 3 / 0 5 / 0 7 ADIPEX-P 1/2 tab po 2 PHENTERMINE HCL 34083542016 No Casey Active 37.5 MG q am for 0 Longer Leonarda CAPS weight loss 1 Active PA 3 / 0 5 / 0 1 CIPRO 500 1 tablet by 2 CIPROFLOXACIN HCL 28495999731 No Casey Active MG TAB mouth twice 0 Longer Canad[place] daily 1 Active PA 3 / 0 5 / 0 1 NECON 1/35 1 po daily 2 NORETHINDRONE-ETH 40149107533 No Casey Active (28) 1-35 0 ESTRADIOL Longer Canadensis MG-MCG 1 Active PA TABS 3 / 0 5 / 0 1 TRAMADOL 1 po tid 2 TRAMADOL HCL 33656547597 No Casey Active HCL 50 MG with ES 0 Longer Canadensis TABS Tylenol 1 Active PA 3 / 0 5 / 0 1 FLUCONAZOL one p.o. q. 2 FLUCONAZOLE 74478339924 No Casey Active E 100 MG day 2 days 0 Longer Leonarda TABS 1 Active PA 3 / 0 5 / 0 1 POTASSIUM 1 capsule 2 POTASSIUM CHLORIDE 82218610217 No Casey Active CHLORIDE by mouth 0 Longer Canadensis CR 10 MEQ daily 1 Active PA CPCR 3 / 0 5 / 0 1 IMIPRAMINE Take 6 IMIPRAMINE HCL 81694322529 Active Bam Active HCL 50 MG tablets by W TABS mouth at [place] bedtime DIFLUCAN 1 tablet by 2 FLUCONAZOLE 75919269414 No Joseph W Active 100 MG TAB mouth daily 0 Longer Farooq DO 1 Active 2 / 0 2 / 2 4 METOPROLOL 1/2 tab po METOPROLOL 84482898329 Active Joseph W Active TARTRATE bid TARTRATE Farooq DO 25 MG TABS VERAPAMIL 2 po bid VERAPAMIL HCL 71786493089 Active Joseph W Active HCL CR 120 Farooq DO MG TAB CR PERMETHRIN apply neck 2 PERMETHRIN 89998935793 No Joseph W Active 5 % CREA to toes 0 Longer Farooq DO tonight and 1 Active then rinse 2 off in / morning. 0 repeat at 7 1 days / 2 0 SEROQUEL one p.o. q. 2 QUETIAPINE 85458673725 No Joseph W Active XR 50 MG evening 0 FUMARATE Longer Farooq DO [id number] 1 Active 2 / 0 1 / 2 0 TRAMADOL 1-2 tablets 2 TRAMADOL HCL 97805008815 No Joseph W Active HCL 50 MG every 6-8 0 Longer Farooq DO TABS hours as 1 Active needed for 2 pain / 0 1 / 2 0 ALPRAZOLAM one p.o. ALPRAZOLAM 52744241407 Active Joseph W Active 3 MG q.h.s. Farooq DO [id number] ALPRAZOLAM Take 1 2 ALPRAZOLAM 60344585746 No Joseph W Active XR tablet by 0 [id number] Longer Farooq DO [id number] mouth at 1 Active bedtime 1 / 2 9 DIFLUCAN 1 tablet by 2 FLUCONAZOLE 47962133088 No Joseph W Active 100 MG TAB mouth daily 0 Longer Farooq DO 1 Active 0 / 0 6 AMBIEN 10 1 tab by ZOLPIDEM TARTRATE 39328064917 Active Joseph W Active MG TAB mouth at Farooq DO bedtime as needed for sleep DIFLUCAN 100 1 tablet DIFLUCAN 19760111 FLUCONAZOLE Inactive MG TAB by mouth 100 MG TAB daily ALPRAZOLAM Take 1 ALPRAZOLAM ALPRAZOLAM Inactive XR [id number] tablet by XR [id number] mouth at [id number] bedtime TRAMADOL HCL 1-2 TRAMADOL 460638 TRAMADOL HCL Inactive 50 MG TABS tablets HCL 50 MG every 6-8 TABS hours as needed for pain SEROQUEL XR one p.o. SEROQUEL XR QUETIAPINE Inactive 50 MG q. evening 50 MG FUMARATE [id number] DL99T-HMS PERMETHRIN 5 apply neck PERMETHRIN 563745 PERMETHRIN Inactive % CREA to toes 5 % CREA tonight and then rinse off in morning. repeat at 7 days DIFLUCAN 100 1 tablet DIFLUCAN 486460 FLUCONAZOLE Inactive MG TAB by mouth 100 MG TAB daily POTASSIUM 1 capsule POTASSIUM POTASSIUM Inactive CHLORIDE CR by mouth CHLORIDE CR CHLORIDE 10 MEQ CPCR daily 10 MEQ CPCR FLUCONAZOLE one p.o. FLUCONAZOLE 19760111 FLUCONAZOLE Inactive 100 MG TABS q. day 2 100 MG TABS days TRAMADOL HCL 1 po tid TRAMADOL 996094 TRAMADOL HCL Inactive 50 MG TABS with ES HCL 50 MG Tylenol TABS NECON 1/35 1 po daily NECON /35 NORETHINDRONE- Inactive (28) 1-35 (28) 1-35 ETH ESTRADIOL MG-MCG TABS MG-MCG TABS CIPRO 500 MG 1 tablet CIPRO 500 143816 CIPROFLOXACIN Inactive TAB by mouth MG TAB HCL twice daily ADIPEX-P 1/2 tab po ADIPEX-P 734264 PHENTERMINE Inactive 37.5 MG CAPS q am for 37.5 MG HCL weight CAPS loss ABILIFY 2 MG 1 po q hs ABILIFY 2 319785 ARIPIPRAZOLE Inactive TABS for major MG TABS depression HYDROCHLOROT 2 tabs HYDROCHLORO 969106 HYDROCHLOROTHI Inactive HIAZIDE 25 every THIAZIDE 25 AZIDE MG TABS morning MG TABS ABILIFY 5 MG one p.o. ABILIFY 5 028377 ARIPIPRAZOLE Inactive TABS q. day MG TABS CIPROFLOXACI Take one CIPROFLOXAC 950326 CIPROFLOXACIN Inactive N HCL 500 MG (1) tablet IN HCL 500 HCL TABS by mouth MG TABS twice a day PROMETHAZINE 1 tab by PROMETHAZIN 969219 PROMETHAZINE Inactive HCL 25 MG mouth E HCL 25 MG HCL TABS every 6 TABS hours as needed PHENTERMINE 1 po q am PHENTERMINE 819079 PHENTERMINE Inactive HCL 37.5 MG for wt. HCL 37.5 MG HCL TABS loss TABS AMARYL 1 MG 1 tab AMARYL 1 MG 508264 GLIMEPIRIDE Inactive TABS twice TABS daily METFORMIN 1 tablet METFORMIN 675331 METFORMIN HCL Inactive HCL 500 MG by mouth HCL 500 MG TABS twice TABS daily SPIRONOLACTO 1 tablet SPIRONOLACT 191932 SPIRONOLACTONE Inactive NE 25 MG TAB by mouth ONE 25 MG daily TAB POTASSIUM 2 capsule POTASSIUM POTASSIUM Inactive CHLORIDE CR by mouth CHLORIDE CR CHLORIDE 10 MEQ CPCR daily 10 MEQ CPCR LISINOPRIL 1 tablet LISINOPRIL 639513 LISINOPRIL Inactive 20 MG TABS by mouth 20 MG TABS daily DIFLUCAN 100 1 tablet DIFLUCAN 543612 FLUCONAZOLE Inactive MG TABS by mouth 100 MG TABS every other day for 2 doses DIFLUCAN 100 1 tablet DIFLUCAN 752427 FLUCONAZOLE Inactive MG TAB by mouth 100 MG TAB daily x 3 days PREDNISONE 2 tablets PREDNISONE 073674 PREDNISONE Inactive 20 MG TAB today, 20 MG TAB then 1 tablet days 2-4 AMOXICILLIN 2 po BID x AMOXICILLIN 979912 AMOXICILLIN Inactive 500 MG CAPS 10 days 500 MG CAPS PREDNISONE 2 tabs PREDNISONE 787407 PREDNISONE Inactive 20 MG TAB daily for [...] Panel - Chemistry sodium, serum 137 mmol/L 722-484 4460/08/29 potassium, serum 4.1 mmol/L 3.5-5.2 chloride, serum 100 mmol/L 98-107 carbon dioxide, venous blood 31.1 mmol/L 21.0-32.0 blood glucose 138 mg/dL 65-110 calcium, serum 9.2 mg/dL 8.5-10.1 urea nitrogen, blood 9 mg/dL 7-18 creatinine, serum 0.80 mg/dL 0.60-1.30 Lab Report: CBC, Comp. Metabolic Panel, HGBA1C - Chemistry sodium, serum 140 mmol/L 531-803 3479/04/13 potassium, serum 3.9 mmol/L 3.5-5.2 chloride, serum [...] 4.3-6.0 Encounters Code Encounter Date Provider Facility CPT-72994 Level 3 Est. Patient [facility] 22:18:20 CDT -[facility] CPT-44512 Level 3 Est. Patient [facility] 16:46:04 CDT -[facility] CPT-82500 Level 3 Est. Patient [facility] 15:39:53 CDT -[facility] CPT-00224 Level 3 Est. Patient Maite Sanchez MD [facility] 13:33:34 CDT -[facility] CPT-05069 Level 3 Est. Patient [facility] 11:37:08 CDT -[facility] CPT-01022 Level 3 Est. Patient Joseph [facility] 17:13:29 [employer] -[facility] CPT-85489 Level 3 Est. Patient Joseph [facility] 18:42:44 CDT CPT-00202 Level 3 Est. Patient Joseph Pineda [facility] 16:25:39 CDT CPT-52628 Level 3 Est. Patient Casey Brower [facility] 09:52:45 CDT -[facility] CPT-12774 Level 3 Est. 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 Patient Joseph Pineda [facility] 14:33:31 CDT -[facility] CPT-16544 Level 3 Est. 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 Patient Joseph Pineda [facility] - 21:45:56 G[employer] PLANT REPAIRER [facility] CPT-96062 Level 3 Est. Patient Joseph Pineda [facility] 21:29:50 CDT -[facility] CPT-87675 Level 3 Est. Patient Joseph Pineda [facility] 12:41:09 CDT -[facility] Procedures Code Procedure Name Date Entry Date Standard Description CPT-42020 Venipuncture Draw Fee 08:55:49 [employer]ANT REPA[employer]ER
--- OUTSIDE RECORDS SUMMARY | 2016-11-20 14:00 | External Medical Summary | Clinical Summary ---
:1965 Author Organization [facility] Address [address] [place] [address] Phone Allergies, Adverse Reactions, Alerts Allergy Name [...] Name Instruction VYVANSE 20 1 tablet LISDEXAMFETAMINE 29227775949 Active Joseph Pineda Active MG ORAL daily for DIMESYLATE Farooq DO CAPS binge eating disorder METFORMIN 2 tablet METFORMIN HCL 00569834364 Active Joseph Pineda Active HCL 500 MG daily for Farooq DO TB24 blood sugars LASIX 20 2 tablet by FUROSEMIDE 37206753705 Active Joseph Pineda Active MG TAB mouth daily Farooq DO CELEBREX 1 tablet by CELECOXIB 67636749186 Active oJseph Pineda Active 200 MG mouth daily Farooq DO CAPS with meals PREDNISONE 2 tablets 2 PREDNISONE 52212691354 No Joseph Pineda Active 20 MG TAB today, then 0 Longer Farooq DO 1 tablet 1 Active days 2-4 5 / 0 4 / 3 DIFLUCAN 1 tablet by 2 FLUCONAZOLE 32602986305 No Joseph W Active 100 MG TAB mouth daily 0 Longer Farooq DO x 3 days 1 Active 5 / 0 4 / 3 AMARYL 1 1 tablet GLIMEPIRIDE 89805231351 Active Joseph Pineda Active MG ORAL orally Farooq DO TABS twice daily DIFLUCAN 1 tablet by 2 FLUCONAZOLE 44437282094 No Joseph W Active 100 MG mouth every 0 Longer Farooq DO TABS other day 1 Active for 2 doses 5 / 0 1 / 2 3 ZOFRAN 4 1 po q6hr ONDANSETRON HCL 35209021793 Active Bam Active MG TABS PRN Nausea W Luis ONEAL PREDNISONE 2 tabs 2 PREDNISONE 89084730467 No Joseph Pineda Active 20 MG TAB daily for 3 0 Longer Farooq DO days, 1 tab 1 Active daily for 3 4 days, 1/2 / tab daily 1 for 2 days 0 / 2 5 TRAMADOL 1/2 po tid TRAMADOL HCL 96473488252 Active Joseph Pineda Active HCL 50 MG with ES Farooq DO TABS Tylenol prn pain AMOXICILLI 2 po BID x 2 AMOXICILLIN 03429441410 No Maite C Active N 500 MG 10 days 0 Longer Madril CAPS 1 Active PhD 0 / 2 0 LISINOPRIL 1 tablet by 2 LISINOPRIL 30714768222 No Maite C Active 20 MG TABS mouth 0 Longer Madril daily 1 Active PhD 0 / 1 0 POTASSIUM 2 capsule 2 POTASSIUM CHLORIDE 39372559331 No Joseph Pineda Active CHLORIDE by mouth 0 Longer Farooq DO CR 10 MEQ daily 1 Active CPCR 2 9 SPIRONOLAC 1 tablet by 2 SPIRONOLACTONE 86565536057 No Joseph Pineda Active TONE 25 MG mouth daily 0 Longer Farooq DO TAB 1 Active 4 / 0 8 / 2 9 METFORMIN 1 tablet 2 METFORMIN HCL 95130410283 No Joseph Pineda Active HCL 500 MG by mouth 0 Longer Farooq DO TABS twice daily 1 Active 4 / 0 8 / 2 9 AMARYL 1 1 tab twice 2 GLIMEPIRIDE 40608149057 No Joseph W Active MG TABS daily 0 Longer Farooq DO 1 Active 4 / 0 8 / 2 9 PHENTERMIN 1 po q am 2 PHENTERMINE HCL 67040629696 No Joseph W Active E HCL 37.5 for wt. 0 Longer Farooq DO MG TABS loss 1 Active 3 / 1 2 / 2 3 PROMETHAZI 1 tab by 2 PROMETHAZINE HCL 19343974789 No Joseph W Active NE HCL 25 mouth every 0 Longer Farooq DO MG TABS 6 hours as 1 Active needed 3 / 0 9 / 0 9 CIPROFLOXA Take one 2 CIPROFLOXACIN HCL 43748484360 No Joseph W Active DELORES HCL (1) tablet 0 Longer Farooq DO 500 MG by mouth 1 Active TABS twice a day 3 / 0 9 / 0 9 ABILIFY 5 one p.o. q. 2 ARIPIPRAZOLE 00553546193 No Joseph W Active MG TABS day 0 Longer Farooq DO 1 Active 3 / 0 9 / 0 9 HYDROCHLOR 2 tabs 2 HYDROCHLOROTHIAZID 59770763260 No Joseph W Active OTHIAZIDE every 0 E Longer Farooq DO 25 MG TABS morning 1 Active 3 / 0 6 / 2 7 ABILIFY 2 1 po q hs 2 ARIPIPRAZOLE 06857902588 No Joseph W Active MG TABS for major 0 Longer Farooq DO depression 1 Active 3 / 0 5 / 0 7 ADIPEX-P 1/2 tab po 2 PHENTERMINE HCL 02376563323 No Casey Active 37.5 MG q am for 0 Longer Leonarda CAPS weight loss 1 Active PA 3 / 0 5 / 0 1 CIPRO 500 1 tablet by 2 CIPROFLOXACIN HCL 11984269832 No Casey Active MG TAB mouth twice 0 Longer [place] daily 1 Active PA 3 / 0 5 / 0 1 NECON 1/35 1 po daily 2 NORETHINDRONE-ETH 82077811378 No Casey Active (28) 1-35 0 ESTRADIOL Longer [place] MG-MCG 1 Active PA TABS 3 / 0 5 / 0 1 TRAMADOL 1 po tid 2 TRAMADOL HCL 89335785891 No Casey Active HCL 50 MG with ES 0 Longer [place] TABS Tylenol 1 Active PA 3 / 0 5 / 0 1 FLUCONAZOL one p.o. q. 2 FLUCONAZOLE 48132362217 No Casey Active E 100 MG day 2 days 0 Longer [place] TABS 1 Active PA 3 / 0 5 / 0 1 POTASSIUM 1 capsule 2 POTASSIUM CHLORIDE 62124273981 No Casey Active CHLORIDE by mouth 0 Longer Leonarda CR 10 MEQ daily 1 Active PA CPCR 3 / 0 5 / 0 1 IMIPRAMINE Take 6 IMIPRAMINE HCL 61256594527 Active Joseph W Active HCL 50 MG tablets by Farooq DO TABS mouth at bedtime DIFLUCAN 1 tablet by 2 FLUCONAZOLE 27877756192 No Joseph W Active 100 MG TAB mouth daily 0 Longer Farooq DO 1 Active 2 / 0 2 / 2 4 METOPROLOL 1/2 tab po METOPROLOL 40764533977 Active Joseph W Active TARTRATE bid TARTRATE Farooq DO 25 MG TABS VERAPAMIL 2 po bid VERAPAMIL HCL 06513209244 Active Joseph W Active HCL CR 120 Farooq DO MG TAB CR PERMETHRIN apply neck 2 PERMETHRIN 15479733285 No Joseph W Active 5 % CREA to toes 0 Longer Farooq DO tonight and 1 Active then rinse 2 off in / morning. 0 repeat at 7 1 days / 2 0 SEROQUEL one p.o. q. 2 QUETIAPINE 14199034439 No Joseph W Active XR 50 MG evening 0 FUMARATE Longer Farooq DO [id number] 1 Active 2 / 0 1 / 2 0 TRAMADOL 1-2 tablets 2 TRAMADOL HCL 61151165830 No Joseph W Active HCL 50 MG every 6-8 0 Longer Farooq DO TABS hours as 1 Active needed for 2 pain / 0 1 / 2 0 ALPRAZOLAM one p.o. ALPRAZOLAM 40892826828 Active Joseph W Active 3 MG q.h.s. Farooq DO [id number] ALPRAZOLAM Take 1 2 ALPRAZOLAM 15094225509 No Joseph W Active XR tablet by 0 [id number] Longer Farooq DO [id number] mouth at 1 Active bedtime 1 / 2 9 DIFLUCAN 1 tablet by 2 FLUCONAZOLE 66799350702 No Joseph W Active 100 MG TAB mouth daily 0 Longer Farooq DO 1 Active 0 / 0 6 AMBIEN 10 1 tab by ZOLPIDEM TARTRATE 40316720703 Active Joseph W Active MG TAB mouth at Farooq DO bedtime as needed for sleep DIFLUCAN 100 1 tablet DIFLUCAN 885843 FLUCONAZOLE Inactive MG TAB by mouth 100 MG TAB daily ALPRAZOLAM Take 1 ALPRAZOLAM ALPRAZOLAM Inactive XR [id number] tablet by XR [id number] mouth at [id number] bedtime TRAMADOL HCL 1-2 TRAMADOL 466558 TRAMADOL HCL Inactive 50 MG TABS tablets HCL 50 MG every 6-8 TABS hours as needed for pain SEROQUEL XR one p.o. SEROQUEL XR QUETIAPINE Inactive 50 MG q. evening 50 MG FUMARATE [id number] PERMETHRIN 5 apply neck PERMETHRIN 718394 PERMETHRIN Inactive % CREA to toes 5 % CREA tonight and then rinse off in morning. repeat at 7 days DIFLUCAN 100 1 tablet DIFLUCAN 841565 FLUCONAZOLE Inactive MG TAB by mouth 100 MG TAB daily POTASSIUM 1 capsule POTASSIUM POTASSIUM Inactive CHLORIDE CR by mouth CHLORIDE CR CHLORIDE 10 MEQ CPCR daily 10 MEQ CPCR FLUCONAZOLE one p.o. FLUCONAZOLE 861149 FLUCONAZOLE Inactive 100 MG TABS q. day 2 100 MG TABS days TRAMADOL HCL 1 po tid TRAMADOL 356874 TRAMADOL HCL Inactive 50 MG TABS with ES HCL 50 MG Tylenol TABS NECON 1/35 1 po daily NECON 1/35 NORETHINDRONE- Inactive (28) 1-35 (28) 1-35 ETH ESTRADIOL MG-MCG TABS MG-MCG TABS CIPRO 500 MG 1 tablet CIPRO 500 749114 CIPROFLOXACIN Inactive TAB by mouth MG TAB HCL twice daily ADIPEX-P 1/2 tab po ADIPEX-P 397605 PHENTERMINE Inactive 37.5 MG CAPS q am for 37.5 MG HCL weight CAPS loss ABILIFY 2 MG 1 po q hs ABILIFY 2 943581 ARIPIPRAZOLE Inactive TABS for major MG TABS depression HYDROCHLOROT 2 tabs HYDROCHLORO 171136 HYDROCHLOROTHI Inactive HIAZIDE 25 every THIAZIDE 25 AZIDE MG TABS morning MG TABS ABILIFY 5 MG one p.o. ABILIFY 5 835212 ARIPIPRAZOLE Inactive TABS q. day MG TABS CIPROFLOXACI Take one CIPROFLOXAC 950831 CIPROFLOXACIN Inactive N HCL 500 MG (1) tablet IN HCL 500 HCL TABS by mouth MG TABS twice a day PROMETHAZINE 1 tab by PROMETHAZIN 896306 PROMETHAZINE Inactive HCL 25 MG mouth E HCL 25 MG HCL TABS every 6 TABS hours as needed PHENTERMINE 1 po q am PHENTERMINE 808105 PHENTERMINE Inactive HCL 37.5 MG for wt. HCL 37.5 MG HCL TABS loss TABS AMARYL 1 MG 1 tab AMARYL 1 MG 296225 GLIMEPIRIDE Inactive TABS twice TABS daily METFORMIN 1 tablet METFORMIN 215456 METFORMIN HCL Inactive HCL 500 MG by mouth HCL 500 MG TABS twice TABS daily SPIRONOLACTO 1 tablet SPIRONOLACT 266138 SPIRONOLACTONE Inactive NE 25 MG TAB by mouth ONE 25 MG daily TAB POTASSIUM 2 capsule POTASSIUM POTASSIUM Inactive CHLORIDE CR by mouth CHLORIDE CR CHLORIDE 10 MEQ CPCR daily 10 MEQ CPCR LISINOPRIL 1 tablet LISINOPRIL 381980 LISINOPRIL Inactive 20 MG TABS by mouth 20 MG TABS daily DIFLUCAN 100 1 tablet DIFLUCAN 605072 FLUCONAZOLE Inactive MG TABS by mouth 100 MG TABS every other day for 2 doses DIFLUCAN 100 1 tablet DIFLUCAN 178506 FLUCONAZOLE Inactive MG TAB by mouth 100 MG TAB daily x 3 days PREDNISONE 2 tablets PREDNISONE 477583 PREDNISONE Inactive 20 MG TAB today, 20 MG TAB then 1 tablet days 2-4 AMOXICILLIN 2 po BID x AMOXICILLIN 600060 AMOXICILLIN Inactive 500 MG CAPS 10 days 500 MG CAPS PREDNISONE 2 tabs PREDNISONE 544524 PREDNISONE Inactive 20 MG TAB daily for [...] Panel - Chemistry sodium, serum 137 mmol/L 301-187 9476/08/29 potassium, serum 4.1 mmol/L 3.5-5.2 chloride, serum 100 mmol/L 98-107 carbon dioxide, venous blood 31.1 mmol/L 21.0-32.0 blood glucose 138 mg/dL 65-110 calcium, serum 9.2 mg/dL 8.5-10.1 urea nitrogen, blood 9 mg/dL 7-18 creatinine, serum 0.80 mg/dL 0.60-1.30 Lab Report: CBC, Comp. Metabolic Panel, HGBA1C - Chemistry sodium, serum 140 mmol/L 522-823 9457/04/13 potassium, serum 3.9 mmol/L 3.5-5.2 chloride, serum [...] mg/g mg/g{creat} 0-29 sodium, serum 140 mmol/L 421-951 9203/07/21 potassium, serum 3.9 mmol/L 3.5-5.2 chloride, serum 102 mmol/L 98-107 carbon dioxide, venous blood 33.4 mmol/L 21.0-32.0 blood glucose 156 mg/dL 65-110 calcium, serum 8.4 mg/dL 8.5-10.1 urea nitrogen, blood 14 mg/dL 7-18 creatinine, serum 1.00 mg/dL 0.60-1.30 Lab Report: Thyroid Stimulating Hormone (L), MICROALBUMIN, Basic Metabol ... - Lab microalbumin, urine 80 0-19 Encounters Code Encounter Date Provider Facility CPT-60233 Level 3 Est. Patient Joseph Pineda [facility] 14:42:12 CDT -C CPT-72257 Level 3 Est. Patient Joseph Edwin [facility] 22:18:20 CDT -[facility] CPT-89143 Level 3 Est. Patient [facility] 16:46:04 CDT -[facility] CPT-37286 Level 3 Est. Patient [facility] 15:39:53 CDT -[facility] CPT-20021 Level 3 Est. Patient Maite Sanchez MD [facility] 13:33:34 CDT -[facility] CPT-13354 Level 3 Est. Patient [facility] 11:37:08 CDT -[facility] CPT-81678 Level 3 Est. 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 Patient [facility] 18:42:44 CDT CPT-68196 Level 3 Est. Patient [facility] 16:25:39 CDT CPT-12786 Level 3 Est. Patient Casey Brower [facility] 09:52:45 CDT -[facility] CPT-88284 Level 3 Est. 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 Patient [facility] 11:03:08 AP OPERATOR -[facility] CPT-40216 Level 3 Est. Patient [facility] 14:33:31 CDT -[facility] CPT-00074 Level 3 Est. Patient [facility] 17:05:02 AP OPERATOR -[facility] CPT-37212 Level 3 Est. Patient [facility] 17:48:06 AP OPERATOR -[facility] CPT-02175 Level 3 Est. Patient Joseph Edwin Farooq [facility] 14:59:22 [facility] CPT-47946 Level 3 Est. Patient Joseph Trivedi [facility] - 21:45:56 [facility] CPT-48889 Level 3 Est. Patient Joseph Pineda [facility] 21:29:50 [facility] CPT-90478 Level 3 Est. 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
--- OUTSIDE RECORDS SUMMARY | 2016-11-20 14:00 | External Medical Summary | Clinical Summary ---
:1965 Author Organization [facility] Address [address] [address] Phone Allergies, Adverse Reactions, Alerts Allergy Name Reaction Description Start Date Severity Status Provider NKDA Critical Active Indigomikayla Jordanum BRAKE PRESS OPERATOR NKDA Critical No Longer Indigo Yokum BRAKE PRESS OPERATOR Active NKDA Critical Inactive Adrianna Elder [...] Indigo Other malaise 05/24 07/02 Yokum BRAKE PRESS OPERATOR and fatigue SLEEP APNEA, 327.23 Active Joseph Pineda Obstructive OBSTRUCTIVE, 06/27 06/27 Farooq DO sleep apnea MILD (adult) (pediatric) OVERWEIGHT 278.02 Inactive Joseph Pineda Overweight 06/28 06/28 Farooq DO Obesity 278.00 Active Indigo Obesity, 06/28 10/18 Yokum BRAKE PRESS OPERATOR unspecified OTH GENERAL V70.3 Resolved Maite Gutierrez Other general MEDICAL Laura ONEAL medical EXAMINATION PhD examination for ADMIN PURPOSES administrative purposes OTHER ABNORMAL 790.29 Resolved Maite C Other abnormal GLUCOSE 05/20 Laura ONEAL glucose PhD ACUTE 466.0 Resolved Maite C Acute BRONCHITIS 09/02 Laura ONEAL bronchitis PhD DEPENDENT 782.3 Resolved Indigo Edema EDEMA, LEGS, 10/29 10/18 Yokum BRAKE PRESS OPERATOR BILATERAL HYPOKALEMIA, 276.8 Resolved Indigo Hypopotassemia MILD 10/29 07/02 Youm BRAKE PRESS OPERATOR Diabetes, Type 250.00 Inactive Joseph Pineda Diabetes 2 06/27 06/27 Farooq DO mellitus without mention of complication, type II or unspecified type, not stated as uncontrolled Diabetes 250.02 Resolved Indigo Diabetes mellitus, type 06/27 BRAKE PRESS OPERATOR mellitus II, without mention uncontrolled of [...] Indigo Routine gynecological 12/14 07/02 Yo BRAKE PRESS OPERATOR gynecological examination examination Postmenopausal 627.1 Resolved Indigo Postmenopausal bleeding 12/14 BRAKE PRESS OPERATOR bleeding Screening for V76.51 Resolved Indigo Screening for malignant 12/26 07/02 Yokum BRAKE PRESS OPERATOR malignant neoplasms of neoplasms of colon colon Insomnia, 307.42 Active Indigo 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 PRESS OPERATOR disorder of initiating or maintaining sleep Establish care V68.89 Resolved Indigo Encounters for or get 01/16 07/02 Yo BRAKE PRESS OPERATOR other specified acquainted administrative visit purpose Weakness, left 342.90 Resolved Indigo Hemiplegia, side of body 06/20 10/18 Yokum BRAKE PRESS OPERATOR unspecified, affecting unspecified side TIA 435.9 Active Indigo Unspecified 06/20 07/02 Yokum BRAKE PRESS OPERATOR transient cerebral ischemia Knee pain, 719.46 Active Indigo Pain in joint bilateral 06/20 10/18 Yokum BRAKE PRESS OPERATOR involving lower leg Bronchitis 490 Resolved Indigo Bronchitis, not 07/23 10/18 Yokum BRAKE PRESS OPERATOR specified as acute or chronic Diabetes 357.2 Active Maliheh Polyneuropathy mellitus, 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 Knee pain, 719.46 Active Indigo Pain in joint right 06/20 10/18 Yokum BRAKE PRESS OPERATOR involving lower leg Jesi 112.3 Active Indigo Candidiasis of intertrigo 10/09 10/18 Yokum BRAKE PRESS OPERATOR skin and nails Hyperlipidemia 272.4 Active Anne Other and 12/24 12/24 Neil unspecified RMA hyperlipidemia ABNORMAL VAGINAL ICD-626.9 Inactive Maite Sanchez BLEEDING PhD SCABIES ICD-133.0 Inactive Maite Sanchez PhD FATIGUE ICD-780.79 Inactive Indigo Yokum BRAKE PRESS OPERATOR OT GENERAL ICD-V70.3 Inactive Maite Sanchez MEDICAL PhD EXAMINATION ADMIN PURPOSES OTHER ABNORMAL ICD-790.29 Inactive Maite Sanchez GLUCOSE PhD ACUTE BRONCHITIS ICD-466.0 Inactive Maite Sanchez PhD DEPENDENT EDEMA, ICD-782.3 Inactive Indigo Yokum LEGS, BILATERAL BRAKE PRESS OPERATOR HYPOKALEMIA, MILD ICD-276.8 Inactive Indigo Jordanum BRAKE PRESS OPERATOR Diabetes mellitus, ICD-250.02 Inactive Indigo Yokum type II, BRAKE PRESS OPERATOR uncontrolled Sinusitis, ICD-461.1 Inactive Ismael Coyne frontal, acute Amandeep ONEAL Laryngitis, acute ICD-464.00 Inactive Ismael Coyne Amandeep ONEAL Routine ICD-V72.31 Inactive Indigo Sexton gynecological BRAKE PRESS OPERATOR examination Postmenopausal ICD-627.1 Inactive Indigomikayla Jordanum 2015 bleeding BRAKE PRESS OPERATOR Screening for ICD-V76.51 Inactive Indigo Jordanum 2015 malignant BRAKE PRESS OPERATOR neoplasms of colon Establish care or ICD-V68.89 Inactive Indigomikayla Jordanum get acquainted BRAKE PRESS OPERATOR visit Weakness, left ICD-342.90 Inactive Indigo Yonickieum side of body BRAKE PRESS OPERATOR Bronchitis ICD-490 Inactive Indigo Yokum BRAKE PRESS OPERATOR Medication List Medication Instructions Start Stop Generic NDC Status Provider Patient Date Date Name Instruction NYSTATIN apply to NYSTATIN [id number] Active Indigo Active 667838 UNIT/GM rash TID Yokum CREA PRN BRAKE PRESS OPERATOR TROKENDI XR 2 tab daily TOPIRAMATE 07720659861 Active Maliheh Active 100 MG ORAL Ziglari [id number] MANAGER RECRUITING METOPROLOL 1 tab po METOPROLOL 74432843719 Active Indigo Active TARTRATE 25 MG bid TARTRATE Yokum TABS BRAKE PRESS OPERATOR AZITHROMYCIN 2 po qd x 1 2 AZITHROMYCIN 71949459279 No Jillina Active 250 MG TABS day, then 1 0 Longer Frazell po qd x 4 1 Active BRAKE PRESS OPERATOR days 6 / 0 3 / 2 6 PREDNISONE 20 2 pills 2 PREDNISONE 43487812418 No Jillina Active MG TAB daily x 4 0 Longer Frazell days 1 Active BRAKE PRESS OPERATOR 6 / 0 3 / 5 PIOGLITAZONE take one a PIOGLITAZONE 25951225568 Active Maliheh Active HCL 30 MG ORAL day HCL Ziglari TABS MANAGER RECRUITING JANUVIA 100 MG 1 tablet by 2 SITAGLIPTIN 35355535762 No Indigo Active TABS mouth daily 0 PHOSPHATE Longer Yokum 1 Active BRAKE PRESS OPERATOR 6 / 0 2 / 6 ATORVASTATIN 1 pill by ATORVASTATIN 63265390410 Active Indigo Active CALCIUM 10 MG mouth CALCIUM Yokum TABS nightly, BRAKE PRESS OPERATOR for cholesterol ASPIRIN 81 MG 1 po qd ASPIRIN 09713453918 Active Indigo Active ORAL TABS Yokum BRAKE PRESS OPERATOR NITROFURANTOIN One capsule 2 NITROFURANTOI 79565554148 No Indigo Active MONOHYD MACRO BID for UTI 0 N MONOHYD Longer Yokum 100 MG CAPS 1 MACRO Active BRAKE PRESS OPERATOR 6 / 0 3 METFORMIN HCL 2 tablets METFORMIN HCL 14063352298 Active Indigo Active 500 MG TB24 by mouth Yokum twice daily BRAKE PRESS OPERATOR TRAMADOL HCL 1/2 po tid 2 TRAMADOL HCL 56220133924 No Jillina Active 50 MG TABS with ES 0 Longer Frazell Tylenol prn 1 Active BRAKE PRESS OPERATOR pain 5 / 0 8 / 2 VYVANSE 20 MG 1 tablet 2 LISDEXAMFETAM 17885919606 No Jillina Active ORAL CAPS daily for 0 INE Longer Frazell binge 1 DIMESYLATE Active BRAKE PRESS OPERATOR eating 5 disorder / 0 8 / 2 LASIX 20 MG 2 tablet by FUROSEMIDE 93363630098 Active Indigo Active TAB mouth daily Yokum BRAKE PRESS OPERATOR CELEBREX 200 1 tablet by CELECOXIB 23406692431 Active Indigo Active MG CAPS mouth daily Yokum with meals BRAKE PRESS OPERATOR PREDNISONE 20 2 tablets 2 PREDNISONE 34079277081 No Joseph W Active MG TAB today, then 0 Longer Farooq DO 1 tablet 1 Active days 2-4 5 / 0 3 DIFLUCAN 100 1 tablet by 2 FLUCONAZOLE 91287323458 No Joseph W Active MG TAB mouth daily 0 Longer Farooq DO x 3 days 1 Active 5 / 0 4 / 3 AMARYL 1 MG 1 tablet GLIMEPIRIDE 06384935062 Active Indigo Active ORAL TABS orally Yokum twice daily BRAKE PRESS OPERATOR DIFLUCAN 100 1 tablet by 2 FLUCONAZOLE 00387781127 No Joseph W Active MG TABS mouth every 0 Longer Farooq DO other day 1 Active for 2 doses 5 / 0 1 / 2 3 ZOFRAN 4 MG 1 po q6hr ONDANSETRON 79225125796 Active Joseph W Active TABS PRN Nausea HCL Farooq DO PREDNISONE 20 2 tabs 2 PREDNISONE 34727384150 No Joseph W Active MG TAB daily for 3 0 Longer Farooq DO days, 1 tab 1 Active daily for 3 4 days, 1/2 / tab daily 1 for 2 days 0 / 2 5 AMOXICILLIN 2 po BID x 2 AMOXICILLIN 76662002892 No Maite C Active 500 MG CAPS 10 days 0 Longer Madril 1 Active PhD 0 / 2 0 LISINOPRIL 20 1 tablet by 2 LISINOPRIL 33721829097 No Maite C Active MG TABS mouth 0 Longer Madril daily 1 Active PhD 0 0 POTASSIUM 2 capsule 2 POTASSIUM 72748493935 No Joseph Pineda Active CHLORIDE CR 10 by mouth 0 CHLORIDE Longer Farooq DO MEQ CPCR daily 1 Active 4 / 0 2 9 SPIRONOLACTONE 1 tablet by 2 SPIRONOLACTON 43097237859 No Joseph Pineda Active 25 MG TAB mouth daily 0 E Longer Farooq DO 1 Active 4 / 0 9 METFORMIN HCL 1 tablet 2 METFORMIN HCL 81430451189 No Joseph Pineda Active 500 MG TABS by mouth 0 Longer Farooq DO twice daily 1 Active 4 / 0 2 9 AMARYL 1 MG 1 tab twice 2 GLIMEPIRIDE 21793805214 No Joseph Pineda Active TABS daily 0 Longer Farooq DO 1 Active 4 / 0 / 2 9 PHENTERMINE 1 po q am 2 PHENTERMINE 37030796727 No Joseph Pineda Active HCL 37.5 MG for wt. 0 HCL Longer Farooq DO TABS loss 1 Active 3 / 1 2 / 2 3 PROMETHAZINE 1 tab by 2 PROMETHAZINE 66070183736 No Joseph W Active HCL 25 MG TABS mouth every 0 HCL Longer Farooq DO 6 hours as 1 Active needed 3 / 0 9 / 0 9 CIPROFLOXACIN Take one 2 CIPROFLOXACIN 99231408882 No Joseph W Active HCL 500 MG (1) tablet 0 HCL Longer Farooq DO TABS by mouth 1 Active twice a day 3 / 0 9 / 0 9 ABILIFY 5 MG one p.o. q. 2 ARIPIPRAZOLE 79207441250 No Joseph W Active TABS day 0 Longer Farooq DO 1 Active 3 / 0 9 / 0 9 HYDROCHLOROTHI 2 tabs 2 HYDROCHLOROTH 90458271989 No Joseph W Active AZIDE 25 MG every 0 IAZIDE Longer Farooq DO TABS morning 1 Active 3 / 0 6 / 2 7 ABILIFY 2 MG 1 po q hs 2 ARIPIPRAZOLE 15449040867 No Joseph W Active TABS for major 0 Longer Farooq DO depression 1 Active 3 / 0 5 / 0 7 ADIPEX-P 37.5 1/2 tab po 2 PHENTERMINE 16847227388 No Casey Active MG CAPS q am for 0 HCL Longer [place] weight loss 1 Active PA 3 / 0 5 / 0 1 CIPRO 500 MG 1 tablet by 2 CIPROFLOXACIN 60391263113 No Casey Active TAB mouth twice 0 HCL Longer Leonarda daily 1 Active PA 3 / 0 5 / 0 1 NECON 1/35 1 po daily 2 NORETHINDRONE 63893020305 No Casey Active (28) 1-35 0 -ETH Longer [place] MG-MCG TABS 1 ESTRADIOL Active PA 3 / 0 5 / 0 1 TRAMADOL HCL 1 po tid 2 TRAMADOL HCL 25626470060 No Casey Active 50 MG TABS with ES 0 Longer Tylenol 1 Active PA 3 / 0 5 / 0 1 FLUCONAZOLE one p.o. q. 2 FLUCONAZOLE 96557510939 No Casey Active 100 MG TABS day 2 days 0 Longer Leonarda 1 Active PA 3 / 0 5 / 0 1 POTASSIUM 1 capsule 2 POTASSIUM 86994936011 No Casey Active CHLORIDE CR 10 by mouth 0 CHLORIDE Longer [place] MEQ CPCR daily 1 Active PA 3 / 0 5 / 0 1 IMIPRAMINE HCL Take 6 IMIPRAMINE 54407476978 Active Indigo Active 50 MG TABS tablets by HCL Yokum mouth at BRAKE PRESS OPERATOR bedtime DIFLUCAN 100 1 tablet by 2 FLUCONAZOLE 95487736207 No Joseph W Active MG TAB mouth daily 0 Longer Farooq DO 1 Active 2 / 0 2 / 2 4 VERAPAMIL HCL 2 po bid VERAPAMIL HCL 39149388199 Active Indigo Active CR 120 MG TAB Yokum CR BRAKE PRESS OPERATOR PERMETHRIN 5 % apply neck 2 PERMETHRIN 09756910143 No Joseph W Active CREA to toes 0 Longer Farooq DO tonight and 1 Active then rinse 2 off in / morning. 0 repeat at 7 1 days / 2 0 SEROQUEL XR 50 one p.o. q. 2 QUETIAPINE 45379272814 No Joseph W Active MG [id number] evening 0 FUMARATE Longer Farooq DO 1 Active 2 / 0 1 / 2 0 TRAMADOL HCL 1-2 tablets 2 TRAMADOL HCL 01007994025 No Joseph W Active 50 MG TABS every 6-8 0 Longer Farooq DO hours as 1 Active needed for 2 pain / 0 1 / 2 0 ALPRAZOLAM 3 one p.o. ALPRAZOLAM 01308629209 Active Indigo Active MG [id number] q.h.s. Yokum BRAKE PRESS OPERATOR ALPRAZOLAM XR Take 1 2 ALPRAZOLAM 05563443160 No Joseph W Active [id number] tablet by 0 [id number] Longer Farooq DO mouth at 1 Active bedtime 1 / 2 9 DIFLUCAN 100 1 tablet by 2 FLUCONAZOLE 45376318073 No Joseph W Active MG TAB mouth daily 0 Longer Farooq DO 1 Active 0 / 0 6 AMBIEN 10 MG 1 tab by ZOLPIDEM 00638555497 Active Indigo Active TAB mouth at TARTRATE Yokum bedtime as BRAKE PRESS OPERATOR needed for sleep DIFLUCAN 100 1 tablet DIFLUCAN 072376 FLUCONAZOLE Inactive MG TAB by mouth 100 MG TAB daily ALPRAZOLAM Take 1 ALPRAZOLAM ALPRAZOLAM Inactive XR [id number] tablet by XR [id number] mouth at [id number] bedtime TRAMADOL HCL 1-2 TRAMADOL 081150 TRAMADOL HCL Inactive 50 MG TABS tablets HCL 50 MG every 6-8 TABS hours as needed for pain SEROQUEL XR one p.o. SEROQUEL XR QUETIAPINE Inactive 50 MG q. 50 MG FUMARATE [id number] evening [id number] PERMETHRIN 5 apply PERMETHRIN 538099 PERMETHRIN Inactive % CREA neck to 5 [...] days TRAMADOL HCL 1 po tid TRAMADOL 493498 TRAMADOL HCL Inactive 50 MG TABS with ES HCL 50 MG Tylenol TABS NECON 1/35 1 po NECON 1/35 NORETHINDRONE- Inactive (28) 1-35 daily (28) 1-35 ETH ESTRADIOL MG-MCG TABS MG-MCG TABS CIPRO 500 MG 1 tablet CIPRO 500 184178 CIPROFLOXACIN Inactive TAB by mouth MG TAB HCL twice daily ADIPEX-P 1/2 tab ADIPEX-P 656014 PHENTERMINE Inactive 37.5 MG CAPS po q am 37.5 MG HCL for CAPS weight loss ABILIFY 2 MG 1 po q hs ABILIFY 2 302740 ARIPIPRAZOLE Inactive TABS for major MG TABS depressio n HYDROCHLOROT 2 tabs HYDROCHLORO 356354 HYDROCHLOROTHI Inactive HIAZIDE 25 every THIAZIDE 25 AZIDE MG TABS morning MG TABS ABILIFY 5 MG one p.o. ABILIFY 5 253784 ARIPIPRAZOLE Inactive TABS q. day MG TABS CIPROFLOXACI Take one CIPROFLOXAC 834357 CIPROFLOXACIN Inactive N HCL 500 MG (1) IN HCL 500 HCL TABS tablet by MG TABS mouth twice a day PROMETHAZINE 1 tab by PROMETHAZIN 098572 PROMETHAZINE Inactive HCL 25 MG mouth E HCL 25 MG HCL TABS every 6 TABS hours as needed PHENTERMINE 1 po q am PHENTERMINE 135170 PHENTERMINE Inactive HCL 37.5 MG for wt. HCL 37.5 MG HCL TABS loss TABS AMARYL 1 MG 1 tab AMARYL 1 MG 696609 GLIMEPIRIDE Inactive TABS twice TABS daily METFORMIN 1 tablet METFORMIN 922145 METFORMIN HCL Inactive HCL 500 MG by mouth HCL 500 MG TABS twice TABS daily SPIRONOLACTO 1 tablet SPIRONOLACT 073404 SPIRONOLACTONE Inactive NE 25 MG TAB by mouth ONE 25 MG daily TAB POTASSIUM 2 capsule POTASSIUM POTASSIUM Inactive CHLORIDE CR by mouth CHLORIDE CR CHLORIDE 10 MEQ CPCR daily 10 MEQ CPCR LISINOPRIL 1 tablet LISINOPRIL 752699 LISINOPRIL Inactive 20 MG TABS by mouth 20 MG TABS daily DIFLUCAN 100 1 tablet DIFLUCAN 19760111 FLUCONAZOLE Inactive MG TABS by mouth 100 MG TABS every other day for 2 doses DIFLUCAN 100 1 tablet DIFLUCAN 468883 FLUCONAZOLE Inactive MG TAB by mouth 100 MG TAB daily x 3 days PREDNISONE 2 tablets PREDNISONE 294573 PREDNISONE Inactive 20 MG TAB today, 20 MG TAB then 1 tablet days 2-4 VYVANSE 20 1 tablet VYVANSE 20 LISDEXAMFETAMI Inactive MG ORAL CAPS daily for MG ORAL NE DIMESYLATE binge CAPS eating disorder TRAMADOL HCL 1/2 po TRAMADOL 519020 TRAMADOL HCL Inactive 50 MG TABS tid with HCL 50 MG ES TABS Tylenol prn pain JANUVIA 100 1 tablet JANUVIA 100 SITAGLIPTIN Inactive MG TABS by mouth MG TABS PHOSPHATE daily AMOXICILLIN 2 po BID AMOXICILLIN 896909 AMOXICILLIN Inactive 500 MG CAPS x 10 days 500 MG CAPS PREDNISONE 2 tabs PREDNISONE 873344 PREDNISONE Inactive 20 MG TAB daily for 20 MG TAB 3 days, 1 tab daily for 3 days, 1/2 tab daily for 2 days NITROFURANTO One NITROFURANT 8269774 NITROFURANTOIN Inactive IN MONOHYD capsule OIN MONOHYD MONOHYD MACRO MACRO 100 MG BID for MACRO 100 CAPS UTI MG CAPS PREDNISONE 2 pills PREDNISONE 131445 PREDNISONE Inactive 20 MG TAB daily x 4 20 MG TAB days AZITHROMYCIN 2 po qd x AZITHROMYCI 8296654 AZITHROMYCIN Inactive 250 MG TABS 1 day, [...] HGBA1C - Chemistry sodium, serum 140 mmol/L 078-238 5670/06/03 potassium, serum 3.9 mmol/L 3.5-5.2 chloride, serum [...] Panel - Chemistry sodium, serum 136 mmol/L 427-379 6388/01/04 carbon dioxide, venous blood 27.0 mmol/L 21.0-32.0 potassium, serum 4.6 mmol/L 3.5-5.2 chloride, serum 98 mmol/L 98-107 blood glucose 174 mg/dL 65-110 urea nitrogen, blood 12 mg/dL 7-18 creatinine, serum 0.78 mg/dL 0.55-1.30 alanine aminotransferase (SGPT), serum 65 U/L 12-78 aspartate aminotransferase (SGOT), serum 34 U/L 15-37 calcium, serum 8.9 mg/dL 8.5-10.1 bilirubin, serum, total 0.40 mg/dL 0.00-1.00 cholesterol, serum 219 mg/dL 765-828 2800/01/04 triglyceride, serum, fasting 214 mg/dL 30-200 HDL [...] mg/dL Encounters Code Encounter Date Provider Facility CPT-76871 Level 4 Est. Patient Indigo Sexton [facility] - 10:01:06 CDT Adin CPT-00500 Level 3 Est. Patient [facility] 08:58:07 CDT [facility] CPT-93272 Level 3 Est. Patient Faby Marino [facility] 14:40:56 CDT [facility] CPT-51394 Level 4 Est. Patient [facility] 17:29:53 SUPERVISOR CAP AND HAT PRODUCTION MANAGER RECRUITING CPT-44585 Level 4 Est. Patient Indigo Sexton [facility] 09:51:54 SUPERVISOR CAP AND HAT PRODUCTION CPT-69072 Level 3 Est. Patient Indigo Sexton [facility] 18:59:38 CDT CPT-96368 Level 3 Est. Patient Joseph Pineda [facility] 14:42:12 CDT -[facility] CPT-19238 Level 3 Est. Patient Joseph Pineda [facility] 22:18:20 CDT -[facility] CPT-33905 Level 3 Est. Patient Joseph Pineda [facility] 16:46:04 CDT -[facility] CPT-24318 Level 3 Est. Patient Joseph Pineda [facility] 15:39:53 CDT -[facility] CPT-72905 Level 3 Est. Patient Maite Sanchez MD [facility] 13:33:34 CDT -[facility] CPT-86833 Level 3 Est. Patient Joseph Pineda [facility] 11:37:08 CDT -[facility] CPT-57457 Level 3 Est. Patient Joseph Pineda [facility] 17:13:29 SUPERVISOR CAP AND HAT PRODUCTION -[facility] CPT-29672 Level 3 Est. Patient Joseph Pineda [facility] 18:42:44 CDT CPT-76610 Level 3 Est. Patient Joseph Pineda [facility] 16:25:39 CDT CPT-71212 Level 3 Est. Patient Casey ARCHIBALD [facility] 09:52:45 CDT -[facility] CPT-19362 Level 3 Est. Patient Joseph Pineda [facility] 11:03:29 SUPERVISOR CAP AND HAT PRODUCTION -[facility]HC CPT-51563 Level 3 Est. Patient Joseph Pineda [facility] 11:03:08 SUPERVISOR CAP AND HAT PRODUCTION -RHC CPT-30229 Level 3 Est. Patient Joseph Pineda [facility] 14:33:31 CDT -[facility] CPT-03789 Level 3 Est. Patient Joseph Pineda [facility] 17:05:02 SUPERVISOR CAP AND HAT PRODUCTION -[facility]HC CPT-60912 Level 3 Est. Patient Joseph Pineda [facility] 17:48:06 SUPERVISOR CAP AND HAT PRODUCTION -RHC CPT-33119 Level 3 Est. Patient Joseph Pineda [facility] 14:59:22 SUPERVISOR CAP AND HAT PRODUCTION -RHC CPT-97661 Level 3 Est. Patient Joseph Pineda [facility] - 21:45:56 SUPERVISOR CAP AND HAT PRODUCTION Jose [facility] CPT-94930 Level 3 Est. Patient Joseph Pineda [facility] 21:29:50 CDT -[facility] CPT-46752 Level 3 Est. Patient Joseph Pineda [facility] 12:41:09 CDT -[facility] Procedures Code Procedure Name Date Entry Date Standard Description CPT-16273 Venipuncture Draw Fee 09:19:08 CDT CPT-21540 Lipid - LAB USE ONLY 09:19:07 CDT CPT-JTINJ Asp/Joint Injection 09:26:49 CDT CPT-06820 Chest 2V Frontal and Lat 14:47:43 CDT CPT-JTINJ Asp/Joint Injection 09:51:53 SUPERVISOR CAP AND HAT PRODUCTION CPT-OV Office Visit 17:39:05 CDT CPT-OV Office Visit 15:19:50 CDT CPT-41007 Sono transvag pelvis non OB uterus ovaries cervix 18:04:34 CDT CPT-99568 Venipuncture Draw Fee 08:55:49 SUPERVISOR CAP AND HAT PRODUCTION
--- OUTSIDE RECORDS SUMMARY | 2016-11-20 14:01 | External Medical Summary | Clinical Summary ---
:1965 Author Organization [facility] [place] Address [address] [address] Phone Allergies, Adverse Reactions, Alerts Allergy Name Reaction Description Start Date Severity Status Provider NKDA Critical Active Indigo Jordanum HOISTING LABORER NKDA Critical No Longer Indigo Yokum HOISTING LABORER Active NKDA Critical Inactive Adrianna Elder [...] Resolved Indigo Other malaise 05/24 07/02 Yokum HOISTING LABORER and fatigue SLEEP APNEA, 327.23 Active Joseph Pineda Obstructive OBSTRUCTIVE, 06/27 06/27 Farooq DO sleep apnea MILD (adult) (pediatric) OVERWEIGHT 278.02 Inactive Joseph Pineda Overweight 06/28 06/28 Farooq DO Obesity 278.00 Active Indigo Obesity, 06/28 10/18 Yokum HOISTING LABORER unspecified OTH GENERAL V70.3 Resolved Maite Gutierrez Other general MEDICAL Laura ONEAL medical EXAMINATION PhD examination for ADMIN PURPOSES administrative purposes OTHER ABNORMAL 790.29 Resolved Maite C Other abnormal GLUCOSE 05/20 Laura ONEAL glucose PhD ACUTE 466.0 Resolved Maite C Acute BRONCHITIS 09/02 Laura ONEAL bronchitis PhD DEPENDENT 782.3 Resolved Indigo Edema EDEMA, LEGS, 10/29 10/18 Yokum HOISTING LABORER BILATERAL HYPOKALEMIA, 276.8 Resolved Indigo Hypopotassemia MILD 10/29 07/02 Youm HOISTING LABORER Diabetes, Type 250.00 Inactive Joseph Pineda Diabetes 2 06/27 06/27 Farooq DO mellitus without mention of complication, type II or unspecified type, not stated as uncontrolled Diabetes 250.02 Resolved Indigo Diabetes mellitus, type 06/27 HOISTING LABORER mellitus II, without mention uncontrolled of [...] Resolved Indigo Routine gynecological 12/14 07/02 Yo HOISTING LABORER gynecological examination examination Postmenopausal 627.1 Resolved Indigo Postmenopausal bleeding 12/14 HOISTING LABORER bleeding Screening for V76.51 Resolved Indigo Screening for malignant 12/26 07/02 Yokum HOISTING LABORER malignant neoplasms of neoplasms of colon colon Insomnia, 307.42 Active Indigo 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 HOISTING LABORER disorder of initiating or maintaining sleep Establish care V68.89 Resolved Indigo Encounters for or get 01/16 07/02 Yo HOISTING LABORER other specified acquainted administrative visit purpose Weakness, left 342.90 Resolved Indigo Hemiplegia, side of body 06/20 10/18 Yokum HOISTING LABORER unspecified, affecting unspecified side TIA 435.9 Active Indigo Unspecified 06/20 07/02 Yokum HOISTING LABORER transient cerebral ischemia Knee pain, 719.46 Active Indigo Pain in joint bilateral 06/20 10/18 Yokum HOISTING LABORER involving lower leg Bronchitis 490 Resolved Indigo Bronchitis, not 07/23 10/18 Yokum HOISTING LABORER specified as acute or chronic Diabetes 357.2 Active Maliheh Polyneuropathy mellitus, 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INDUSTRIAL ORGANIZATION MANAGER 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y Knee pain, 719.46 Active Indigo Pain in joint right 06/20 10/18 Yokum HOISTING LABORER involving lower leg Jesi 112.3 Active Indigo Candidiasis of intertrigo 10/09 10/18 Yokum HOISTING LABORER skin and nails Hyperlipidemia 272.4 Active Anne Other and 12/24 12/24 Neil unspecified RMA hyperlipidemia Incontinence, 788.33 Active Indigo Mixed mixed, 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 HOISTING LABORER incontinence urge/stress (female) (male) Female stress 625.6 Active Yury AnthonyCarlos Enrique Stress incontinence 01/03 01/03 Cy patel MD female ABNORMAL VAGINAL ICD-626.9 Inactive Maite Sanchez BLEEDING PhD SCABIES ICD-133.0 Inactive Maite Sanchez PhD FATIGUE ICD-780.79 Inactive Indigo Yokum HOISTING LABORER OTH GENERAL ICD-V70.3 Inactive Maite Sanchez MEDICAL PhD EXAMINATION ADMIN PURPOSES OTHER ABNORMAL ICD-790.29 Inactive Maite Sanchez GLUCOSE PhD ACUTE BRONCHITIS ICD-466.0 Inactive Maite Matt Sanchez PhD DEPENDENT EDEMA, ICD-782.3 Inactive Indigo Yokum LEGS, BILATERAL HOISTING LABORER HYPOKALEMIA, MILD ICD-276.8 Inactive Indigo Yokum HOISTING LABORER Diabetes mellitus, ICD-250.02 Inactive Indigo Yokum type II, HOISTING LABORER uncontrolled Sinusitis, ICD-461.1 Inactive Ismael Coyne frontal, acute Amandeep ONEAL Laryngitis, acute ICD-464.00 Inactive Ismael Coyne Amandeep ONEAL Routine ICD-V72.31 Inactive Indigo Yokum gynecological HOISTING LABORER examination Postmenopausal ICD-627.1 Inactive Indigo Yokum 2015 bleeding HOISTING LABORER Screening for ICD-V76.51 Inactive Indigo Yokum 2015 malignant HOISTING LABORER neoplasms of colon Establish care or ICD-V68.89 Inactive Indigo Yokum get acquainted HOISTING LABORER visit Weakness, left ICD-342.90 Inactive Indigo Yokum side of body HOISTING LABORER Bronchitis ICD-490 Inactive Indigo Yokum HOISTING LABORER Medication List Medication Instructions Start Stop Generic NDC Status Provider Patient Date Date Name Instruction METFORMIN 2 tablets METFORMIN 51925992179 No Indigo Active HCL 500 MG by mouth HCL Longer Yokum TB24 twice Active HOISTING LABORER daily AMARYL 1 MG 1 tablet GLIMEPIRID 99259176398 No Indigo Active ORAL TABS orally E Longer Yokum twice Active HOISTING LABORER daily NYSTATIN apply to NYSTATIN 04733367602 Active Indigo Active 535416 rash TID Yokum UNIT/GM PRN HOISTING LABORER CREA TROKENDI XR 2 tab TOPIRAMATE 79545291062 Active Malihe Active 100 MG ORAL daily h [id number] Ziglar i INDUSTRIAL ORGANIZATION MANAGER METOPROLOL 1 tab po METOPROLOL 96924659030 Active Indigo Active TARTRATE 25 bid TARTRATE Yokum MG TABS HOISTING LABORER AZITHROMYCI 2 po qd x AZITHROMYC 87646878271 No Jillin Active N 250 MG 1 day, IN Longer a TABS then 1 po Active Frazel qd x 4 l HOISTING LABORER days PREDNISONE 2 pills PREDNISONE 11307251467 No Jillin Active 20 MG TAB daily x 4 Longer a days Active Frazel l HOISTING LABORER PIOGLITAZON take one PIOGLITAZO 45973238123 Active Malihe Active E HCL 30 MG a day NE HCL h ORAL TABS Ziglar i INDUSTRIAL ORGANIZATION MANAGER JANUVIA 100 1 tablet SITAGLIPTI 95944151655 No Indigo Active MG TABS by mouth N Longer Yokum daily PHOSPHATE Active HOISTING LABORER ATORVASTATI 1 pill by ATORVASTAT 28300206680 Active Indigo Active N CALCIUM mouth IN CALCIUM Yokum 10 MG TABS nightly, HOISTING LABORER for cholester ol ASPIRIN 81 1 po qd ASPIRIN 80029340135 Active Indigo Active MG ORAL Yokum TABS HOISTING LABORER NITROFURANT One NITROFURAN 56673592303 No Indigo Active OIN MONOHYD capsule TOIN Longer Yokum MACRO 100 BID for MONOHYD Active HOISTING LABORER MG CAPS UTI MACRO TRAMADOL 1/2 po TRAMADOL 99633375244 No Jillin Active HCL 50 MG tid with HCL Longer a TABS ES Active Frazel Tylenol l HOISTING LABORER prn pain VYVANSE 20 1 tablet LISDEXAMFE 59228639124 No Jillin Active MG ORAL daily for TAMINE Longer a CAPS binge DIMESYLATE Active Frazel eating l HOISTING LABORER disorder LASIX 20 MG 2 tablet FUROSEMIDE 48167962925 Active Indigo Active TAB by mouth Yokum daily HOISTING LABORER CELEBREX 1 tablet CELECOXIB 50933483967 Active Indigo Active 200 MG CAPS by mouth Yokum daily HOISTING LABORER with meals PREDNISONE 2 tablets PREDNISONE 19176710453 No Joseph Active 20 MG TAB today, Longer W Farooq then 1 Active DO tablet days 2-4 DIFLUCAN 1 tablet FLUCONAZOL 55921278357 No Joseph Active 100 MG TAB by mouth E Longer W Farooq daily x 3 Active DO days DIFLUCAN 1 tablet FLUCONAZOL 09166395490 No Joseph Active 100 MG TABS by mouth E Longer W Farooq every Active DO other day for 2 doses ZOFRAN 4 MG 1 po q6hr ONDANSETRO 02361260176 Active Joseph Active TABS PRN N HCL W Farooq Nausea DO PREDNISONE 2 tabs PREDNISONE 50027957345 No Joseph Active 20 MG TAB daily for Longer W Farooq 3 days, 1 Active DO tab daily for 3 days, 1/2 tab daily for 2 days AMOXICILLIN 2 po BID AMOXICILLI 94306614032 No Maite C Active 500 MG CAPS x 10 days N Longer Madril Active PhD LISINOPRIL 1 tablet LISINOPRIL 21407140639 No Maite C Active 20 MG TABS by mouth Longer Madril daily Active PhD POTASSIUM 2 capsule POTASSIUM 56990670009 No Joseph Active CHLORIDE CR by mouth CHLORIDE Longer W Farooq 10 MEQ CPCR daily Active DO SPIRONOLACT 1 tablet SPIRONOLAC 25523745964 No Joseph Active ONE 25 MG by mouth TONE Longer W Farooq TAB daily Active DO METFORMIN 1 tablet METFORMIN 49105288785 No Joseph Active HCL 500 MG by mouth HCL Longer W Farooq TABS twice Active DO daily AMARYL 1 MG 1 tab GLIMEPIRID 30647295706 No Joseph Active TABS twice E Longer W Farooq daily Active DO PHENTERMINE 1 po q am PHENTERMIN 85546283401 No Joseph Active HCL 37.5 MG for wt. E HCL Longer W Farooq TABS loss Active DO PROMETHAZIN 1 tab by PROMETHAZI 32777105932 No Joseph Active E HCL 25 MG mouth NE HCL Longer W Farooq TABS every 6 Active DO hours as needed CIPROFLOXAC Take one CIPROFLOXA 48119289824 No Joseph Active IN HCL 500 (1) DELORES HCL Longer W Farooq MG TABS tablet by Active DO mouth twice a day ABILIFY 5 one p.o. ARIPIPRAZO 83687007619 No Joseph Active MG TABS q. day LE Longer W Farooq Active DO HYDROCHLORO 2 tabs HYDROCHLOR 39631947166 No Joseph Active THIAZIDE 25 every OTHIAZIDE Longer W Farooq MG TABS morning Active DO ABILIFY 2 1 po q hs ARIPIPRAZO 50140806069 No Joseph Active MG TABS for major LE Longer W Farooq depressio Active DO n ADIPEX-P 1/2 tab PHENTERMIN 81333111099 No Casey Active 37.5 MG po q am E HCL Longer Leonarda CAPS for Active PA weight loss CIPRO 500 1 tablet CIPROFLOXA 85354037589 No Casey Active MG TAB by mouth DELORES HCL Longer [place] twice Active PA daily NECON 1/35 1 po NORETHINDR 48427345822 No Casey Active (28) 1-35 daily ONE-ETH Longer [place] MG-MCG TABS ESTRADIOL Active PA TRAMADOL 1 po tid TRAMADOL 29739742733 No Casey Active HCL 50 MG with ES HCL Longer [place] TABS Tylenol Active PA FLUCONAZOLE one p.o. FLUCONAZOL 63717407363 No Casey Active 100 MG TABS q. day 2 E Longer [place] days Active PA POTASSIUM 1 capsule POTASSIUM 07994385751 No Casey Active CHLORIDE CR by mouth CHLORIDE Longer 10 MEQ CPCR daily Active PA IMIPRAMINE Take 6 IMIPRAMINE 78937986162 Active Indigo Active HCL 50 MG tablets HCL Yokum TABS by mouth HOISTING LABORER at bedtime DIFLUCAN 1 tablet FLUCONAZOL 42121420845 No Joseph Active 100 MG TAB by mouth E Longer W Farooq daily Active DO VERAPAMIL 2 po bid VERAPAMIL 21729809510 Active Indigo Active HCL CR 120 HCL Yokum MG TAB CR HOISTING LABORER PERMETHRIN apply PERMETHRIN 82209254871 No Joseph Active 5 % CREA neck to Longer W Farooq toes Active DO tonight and then rinse off in morning. repeat at 7 days SEROQUEL XR one p.o. QUETIAPINE 24262972470 No Joseph Active 50 MG q. FUMARATE Longer W Farooq [id number] evening Active DO TRAMADOL 1-2 TRAMADOL 84916001294 No Joseph Active HCL 50 MG tablets HCL Longer W Farooq TABS every 6-8 Active DO hours as needed for pain ALPRAZOLAM one p.o. ALPRAZOLAM 82466911989 Active Indigo Active 3 MG q.h.s. Yokum [id number] HOISTING LABORER ALPRAZOLAM Take 1 ALPRAZOLAM 78529848098 No Joseph Active XR tablet by [id number] Longer W Farooq [id number] mouth at Active DO bedtime DIFLUCAN 1 tablet FLUCONAZOL 30711878413 No Joseph Active 100 MG TAB by mouth E Longer W Farooq daily Active DO AMBIEN 10 1 tab by ZOLPIDEM 05541419387 Active Indigo Active MG TAB mouth at TARTRATE Yokum bedtime HOISTING LABORER as needed for sleep DIFLUCAN 100 1 tablet DIFLUCAN 349180 FLUCONAZOLE Inactive MG TAB by mouth 100 MG TAB daily ALPRAZOLAM Take 1 ALPRAZOLAM ALPRAZOLAM Inactive XR [id number] tablet by XR [id number] mouth at [id number] bedtime TRAMADOL HCL 1-2 TRAMADOL 747190 TRAMADOL HCL Inactive 50 MG TABS tablets HCL 50 MG every 6-8 TABS hours as needed for pain SEROQUEL XR one p.o. SEROQUEL XR QUETIAPINE Inactive 50 MG q. 50 MG FUMARATE [id number] evening [id number] PERMETHRIN 5 apply PERMETHRIN 598753 PERMETHRIN Inactive % CREA neck to 5 % CREA toes tonight and then rinse off in morning. repeat at 7 days DIFLUCAN 100 1 tablet DIFLUCAN 221700 FLUCONAZOLE Inactive MG TAB by mouth 100 MG TAB daily POTASSIUM 1 capsule POTASSIUM POTASSIUM Inactive CHLORIDE CR by mouth CHLORIDE CR CHLORIDE 10 MEQ CPCR daily 10 MEQ CPCR FLUCONAZOLE one p.o. FLUCONAZOLE 900160 FLUCONAZOLE Inactive 100 MG TABS q. day 2 100 MG TABS days TRAMADOL HCL 1 po tid TRAMADOL 423132 TRAMADOL HCL Inactive 50 MG TABS with ES HCL 50 MG Tylenol TABS NECON 1/35 1 po NECON 1/35 NORETHINDRONE- Inactive (28) 1-35 daily (28) 1-35 ETH ESTRADIOL MG-MCG TABS MG-MCG TABS CIPRO 500 MG 1 tablet CIPRO 500 778989 CIPROFLOXACIN Inactive TAB by mouth MG TAB HCL twice daily ADIPEX-P 1/2 tab ADIPEX-P 782933 PHENTERMINE Inactive 37.5 MG CAPS po q am 37.5 MG HCL for CAPS weight loss ABILIFY 2 MG 1 po q hs ABILIFY 2 223391 ARIPIPRAZOLE Inactive TABS for major MG TABS depressio n HYDROCHLOROT 2 tabs HYDROCHLORO 466343 HYDROCHLOROTHI Inactive HIAZIDE 25 every THIAZIDE 25 AZIDE MG TABS morning MG TABS ABILIFY 5 MG one p.o. ABILIFY 5 414892 ARIPIPRAZOLE Inactive TABS q. day MG TABS CIPROFLOXACI Take one CIPROFLOXAC 630960 CIPROFLOXACIN Inactive N HCL 500 MG (1) IN HCL 500 HCL TABS tablet by MG TABS mouth twice a day PROMETHAZINE 1 tab by PROMETHAZIN 760818 PROMETHAZINE Inactive HCL 25 MG mouth E HCL 25 MG HCL TABS every 6 TABS hours as needed PHENTERMINE 1 po q am PHENTERMINE 939479 PHENTERMINE Inactive HCL 37.5 MG for wt. HCL 37.5 MG HCL TABS loss TABS AMARYL 1 MG 1 tab AMARYL 1 MG 430768 GLIMEPIRIDE Inactive TABS twice TABS daily METFORMIN 1 tablet METFORMIN 007745 METFORMIN HCL Inactive HCL 500 MG by mouth HCL 500 MG TABS twice TABS daily SPIRONOLACTO 1 tablet SPIRONOLACT 884842 SPIRONOLACTONE Inactive NE 25 MG TAB by mouth ONE 25 MG daily TAB POTASSIUM 2 capsule POTASSIUM POTASSIUM Inactive CHLORIDE CR by mouth CHLORIDE CR CHLORIDE 10 MEQ CPCR daily 10 MEQ CPCR LISINOPRIL 1 tablet LISINOPRIL 822261 LISINOPRIL Inactive 20 MG TABS by mouth 20 MG TABS daily DIFLUCAN 100 1 tablet DIFLUCAN 19760111 FLUCONAZOLE Inactive MG TABS by mouth 100 MG TABS every other day for 2 doses DIFLUCAN 100 1 tablet DIFLUCAN 118812 FLUCONAZOLE Inactive MG TAB by mouth 100 MG TAB daily x 3 days PREDNISONE 2 tablets PREDNISONE 625101 PREDNISONE Inactive 20 MG TAB today, 20 MG TAB then 1 tablet days 2-4 VYVANSE 20 1 tablet VYVANSE 20 LISDEXAMFETAMI Inactive MG ORAL CAPS daily for MG ORAL NE DIMESYLATE binge CAPS eating disorder TRAMADOL HCL 1/2 po TRAMADOL 991598 TRAMADOL HCL Inactive 50 MG TABS tid with HCL 50 MG ES TABS Tylenol prn pain JANUVIA 100 1 tablet JANUVIA 100 SITAGLIPTIN Inactive MG TABS by mouth MG TABS PHOSPHATE daily AMARYL 1 MG 1 tablet AMARYL 1 MG 713079 GLIMEPIRIDE Inactive ORAL TABS orally ORAL TABS twice daily METFORMIN 2 tablets METFORMIN METFORMIN HCL Inactive HCL 500 MG by mouth HCL 500 MG TB24 twice TB24 daily AMOXICILLIN 2 po BID AMOXICILLIN 758725 AMOXICILLIN Inactive 500 MG CAPS x 10 days 500 MG CAPS PREDNISONE 2 tabs PREDNISONE 442144 PREDNISONE Inactive 20 MG TAB daily for 20 MG TAB 3 days, 1 tab daily for 3 days, 1/2 tab daily for 2 days NITROFURANTO One NITROFURANT 1113841 NITROFURANTOIN Inactive IN MONOHYD capsule OIN MONOHYD MONOHYD MACRO MACRO 100 MG BID for MACRO 100 CAPS UTI MG CAPS PREDNISONE 2 pills PREDNISONE 269461 PREDNISONE Inactive 20 MG TAB daily x 4 20 MG TAB days AZITHROMYCIN 2 po qd x AZITHROMYCI 0871552 AZITHROMYCIN Inactive 250 MG TABS 1 day, [...] HGBA1C - Chemistry sodium, serum 140 mmol/L 301-822 2015/06/03 potassium, serum 3.9 mmol/L 3.5-5.2 chloride, serum [...] Panel - Chemistry sodium, serum 136 mmol/L 262-570 3068/01/04 carbon dioxide, venous blood 27.0 mmol/L 21.0-32.0 potassium, serum 4.6 mmol/L 3.5-5.2 chloride, serum 98 mmol/L 98-107 blood glucose 174 mg/dL 65-110 urea nitrogen, blood 12 mg/dL 7-18 creatinine, serum 0.78 mg/dL 0.55-1.30 alanine aminotransferase (SGPT), serum 65 U/L 12-78 aspartate aminotransferase (SGOT), serum 34 U/L 15-37 calcium, serum 8.9 mg/dL 8.5-10.1 bilirubin, serum, total 0.40 mg/dL 0.00-1.00 cholesterol, serum 219 mg/dL 569-066 4455/01/04 triglyceride, serum, fasting 214 mg/dL 30-200 HDL cholesterol, serum 39 mg/dL 32-96 LDL cholesterol, serum 137 mg/dL 0-130 Lab Report: Lipid Panel - Chemistry cholesterol, serum 157 mg/dL 837-906 3702/08/22 triglyceride, serum, fasting 215 mg/dL 30-200 HDL [...] mg/dL Encounters Code Encounter Date Provider Facility CPT-97743 Level 4 New Patient Yury Benoit MD [facility] 15:17:12 CDT CPT-52838 Level 3 Est. Patient [facility] - 13:37:46 CDT [place] CPT-96381 Level 4 Est. Patient [facility] - 10:01:06 CDT [place] CPT-72488 Level 3 Est. Patient [facility] 08:58:07 CDT INDUSTRIAL ORGANIZATION MANAGER CPT-62368 Level 3 Est. [facility] CPT-02684 Level 4 Est. Patient [facility] 17:29:53 WIRE ROPE SALES REPRESENTATIVE INDUSTRIAL ORGANIZATION MANAGER CPT-45433 Level 4 Est. Patient [facility] 09:51:54 WIRE ROPE SALES REPRESENTATIVE CPT-32890 Level 3 Est. Patient [facility] 18:59:38 CDT CPT-38272 Level 3 Est. Patient Joseph Pineda [facility] 14:42:12 CDT -[facility] CPT-14708 Level 3 Est. Patient Joseph Pineda [facility] 22:18:20 CDT -[facility] CPT-93870 Level 3 Est. Patient Joseph Edwin [facility] 16:46:04 CDT -[facility] CPT-33531 Level 3 Est. Patient Joseph Edwin [facility] 15:39:53 CDT -[facility] CPT-19137 Level 3 Est. Patient Maite Sanchez MD [facility] 13:33:34 CDT -[facility] CPT-68300 Level 3 Est. Patient Joseph Pineda [facility] 11:37:08 CDT -[facility] CPT-36613 Level 3 Est. Patient Joseph Pineda [facility] 17:13:29 WIRE ROPE SALES REPRESENTATIVE -RHC CPT-69818 Level 3 Est. Patient Joseph Pineda [facility] 18:42:44 CDT CPT-47900 Level 3 Est. Patient Joseph Edwin [facility] 16:25:39 CDT CPT-24636 Level 3 Est. Patient Casey Brower [facility] 09:52:45 CDT -R[facility] CPT-67522 Level 3 Est. Patient Joseph Pineda [facility] 11:03:29 WIRE ROPE SALES REPRESENTATIVE -RHC CPT-32370 Level 3 Est. Patient Joseph Edwin [facility] 11:03:08 WIRE ROPE SALES REPRESENTATIVE -RHC CPT-21377 Level 3 Est. Patient Joseph Edwin [facility] 14:33:31 CDT -[facility] CPT-10965 Level 3 Est. Patient Joseph Edwin [facility] 17:05:02 WIRE ROPE SALES REPRESENTATIVE -RHC CPT-19315 Level 3 Est. Patient Joseph Edwin [facility] 17:48:06 WIRE ROPE SALES REPRESENTATIVE -RHC CPT-67151 Level 3 Est. Patient Joseph Edwin [facility] 14:59:22 WIRE ROPE SALES REPRESENTATIVE -RHC CPT-42918 Level 3 Est. Patient Joseph Edwin [facility] - 21:45:56 WIRE ROPE SALES REPRESENTATIVE [place] [facility] CPT-57408 Level 3 Est. Patient Joseph Edwin [facility] 21:29:50 CDT -R[facility] CPT-64626 Level 3 Est. Patient [place] [facility] 12:41:09 CDT -R[facility] Procedures Code Procedure Name Date Entry Date Standard Description CPT-32024 Postop F/U Visit 18:20:10 CDT CPT-A4351 Coloplast Female Cath 09:37:10 CDT CPT-42871 Urine Dip (Floor Use Only) 15:17:13 CDT CPT-30114 Dil F ureth int 15:17:13 CDT CPT-29729 Venipuncture Draw Fee 09:19:08 CDT CPT-70837 Lipid - LAB USE ONLY 09:19:07 CDT CPT-JTINJ Asp/Joint Injection 09:26:49 CDT CPT-68639 Chest 2V Frontal and Lat 14:47:43 CDT CPT-JTINJ Asp/Joint Injection 09:51:53 WIRE ROPE SALES REPRESENTATIVE CPT-OV Office Visit 17:39:05 CDT CPT-OV Office Visit 15:19:50 CDT CPT-53860 Sono transvag pelvis non OB uterus ovaries cervix 18:04:34 CDT CPT-91086 Venipuncture Draw Fee 08:55:49 WIRE ROPE SALES REPRESENTATIVE
--- OUTSIDE RECORDS SUMMARY | 2016-11-20 14:01 | External Medical Summary | Clinical Summary ---
:1965 Author Organization [facility] Address [address] [place] [address] Phone Allergies, Adverse Reactions, Alerts Allergy Name [...] Routine gynecological 12/14 12/14 [place] gynecological examination [employer] ARTIST examination Postmenopausal 627.1 Active Jillina Postmenopausal bleeding 12/14 12/14 [place] bleeding [employer]BR[employer] ARTIST ABNORMAL VAGINAL ICD-626.9 Inactive Maite Sanchez BLEEDING PhD SCABIES ICD-133.0 Inactive Maite Sanchez PhD OT GENERAL ICD-V70.3 Inactive Maite Sanchez MEDICAL PhD EXAMINATION ADMIN PURPOSES OTHER ABNORMAL ICD-790.29 Inactive Maite Sanchez GLUCOSE PhD ACUTE BRONCHITIS ICD-466.0 Inactive Maite Sanchez PhD Medication List Medication Instructions Start Stop Generic NDC Status Provider Patient Date Date Name Instruction TRAMADOL / po TRAMADOL [id number] No Jillina Active HCL 50 MG tid with HCL Longer [place] TABS ES Active AIRBR[employer] ARTIST Tylenol prn pain VYVANSE 20 1 tablet LISDEXAMF 22514697648 No Jillina Active MG ORAL daily for ETAMINE Longer [place] CAPS binge DIMESYLAT Active AIRBRUSH ARTIST eating E disorder METFORMIN 2 tablet METFORMIN 18552242606 Active Joseph W Active HCL 500 MG daily for HCL Farooq DO TB24 blood sugars LASIX 20 2 tablet FUROSEMID 70673213183 Active Joseph Pineda Active MG TAB by mouth E Farooq DO daily CELEBREX 1 tablet CELECOXIB 04100141334 Active Joseph W Active 200 MG by mouth Farooq DO CAPS daily with meals PREDNISONE 2 tablets PREDNISON 54648875402 No Joseph W Active 20 MG TAB today, E Longer Farooq DO then 1 Active tablet days 2-4 DIFLUCAN 1 tablet FLUCONAZO 09257659775 No Joseph W Active 100 MG TAB by mouth LE Longer Farooq DO daily x 3 Active days AMARYL 1 1 tablet GLIMEPIRI 20425099158 Active Joseph Pineda Active MG ORAL orally DE Farooq DO TABS twice daily DIFLUCAN 1 tablet FLUCONAZO 70428816526 No Joseph Pineda Active 100 MG by mouth LE Longer Farooq DO TABS every Active other day for 2 doses ZOFRAN 4 1 po q6hr ONDANSETR 50088498910 Active Bam Pineda Active MG TABS PRN ON HCL Dillow Nausea PREDNISONE 2 tabs PREDNISON 95185667668 No Joseph Pineda Active 20 MG TAB daily for E Longer Farooq DO 3 days, 1 Active tab daily for 3 days, 1/2 tab daily for 2 days AMOXICILLI 2 po BID AMOXICILL 41987480138 No Maite C Active N 500 MG x 10 days IN Longer Madril CAPS Active PhD LISINOPRIL 1 tablet LISINOPRI 10681125385 No Maite C Active 20 MG TABS by mouth L Longer Madril daily Active PhD POTASSIUM 2 capsule POTASSIUM 95524050110 No Joseph Pineda Active CHLORIDE by mouth CHLORIDE Longer Farooq DO CR 10 MEQ daily Active CPCR SPIRONOLAC 1 tablet SPIRONOLA 48268251051 No Joseph W Active TONE 25 MG by mouth CTONE Longer Farooq DO TAB daily Active METFORMIN 1 tablet METFORMIN 19409165774 No Joseph W Active HCL 500 MG by mouth HCL Longer Farooq DO TABS twice Active daily AMARYL 1 1 tab GLIMEPIRI 02141001244 No Joseph W Active MG TABS twice DE Longer Farooq DO daily Active PHENTERMIN 1 po q am PHENTERMI 00863456667 No Joseph W Active E HCL 37.5 for wt. NE HCL Longer Farooq DO MG TABS loss Active PROMETHAZI 1 tab by PROMETHAZ 01901276076 No Joseph W Active NE HCL 25 mouth INE HCL Longer Farooq DO MG TABS every 6 Active hours as needed CIPROFLOXA Take one CIPROFLOX 98639620444 No Joseph W Active DELORES HCL (1) ACIN HCL Longer Farooq DO 500 MG tablet by Active TABS mouth twice a day ABILIFY 5 one p.o. ARIPIPRAZ 47734293215 No Joseph W Active MG TABS q. day OLE Longer Farooq DO Active HYDROCHLOR 2 tabs HYDROCHLO 66616029720 No Joseph W Active OTHIAZIDE every ROTHIAZID Longer Farooq DO 25 MG TABS morning E Active ABILIFY 2 1 po q hs ARIPIPRAZ 94814728694 No Joseph W Active MG TABS for major OLE Longer Farooq DO depressio Active n ADIPEX-P 1/2 tab PHENTERMI 33910992088 No Casey Active 37.5 MG po q am NE HCL Longer Pedro CAPS for Active PA weight loss CIPRO 500 1 tablet CIPROFLOX 74042247263 No Casey Active MG TAB by mouth ACIN HCL Longer Pedro twice Active PA daily NECON 1/35 1 po NORETHIND 87314240708 No Casey Active (28) 1-35 daily LINDA-ETH Longer Leonarda MG-MCG ESTRADIOL Active PA TABS TRAMADOL 1 po tid TRAMADOL 54244258343 No Casey Active HCL 50 MG with ES HCL Longer Pedro TABS Tylenol Active PA FLUCONAZOL one p.o. FLUCONAZO 60559969172 No Casey Active E 100 MG q. day 2 LE Longer Leonarda TABS days Active PA POTASSIUM 1 capsule POTASSIUM 77372175546 No Casey Active CHLORIDE by mouth CHLORIDE Longer Leonarda CR 10 MEQ daily Active PA CPCR IMIPRAMINE Take 6 IMIPRAMIN 90059636620 Active Joseph Pineda Active HCL 50 MG tablets E HCL Farooq DO TABS by mouth at bedtime DIFLUCAN 1 tablet FLUCONAZO 65894810758 No Joseph W Active 100 MG TAB by mouth LE Longer Farooq DO daily Active METOPROLOL 1/2 tab METOPROLO 18619333292 Active Joseph W Active TARTRATE po bid L Farooq DO 25 MG TABS TARTRATE VERAPAMIL 2 po bid VERAPAMIL 87791265063 Active Joseph Pineda Active HCL CR 120 HCL Farooq DO MG TAB CR PERMETHRIN apply PERMETHRI 66578377944 No Joseph Pineda Active 5 % CREA neck to N Longer Farooq DO toes Active tonight and then rinse off in morning. repeat at 7 days SEROQUEL one p.o. QUETIAPIN 52227301069 No Joseph W Active XR 50 MG q. E Longer Farooq DO [id number] evening FUMARATE Active TRAMADOL 1-2 TRAMADOL 55007763280 No Joseph W Active HCL 50 MG tablets HCL Longer Farooq DO TABS every 6-8 Active hours as needed for pain ALPRAZOLAM one p.o. ALPRAZOLA 51442927800 Active Joseph W Active 3 MG q.h.s. M Farooq DO [id number] ALPRAZOLAM Take 1 ALPRAZOLA 51965571424 No Joseph W Active XR tablet by M Longer Farooq DO [id number] mouth at [id number] Active bedtime DIFLUCAN 1 tablet FLUCONAZO 20619778127 No Joseph W Active 100 MG TAB by mouth MAGNO Longer Farooq DO daily Active AMBIEN 10 1 tab by ZOLPIDEM 62628844100 Active Joseph W Active MG TAB mouth at TARTRATE Farooq DO bedtime as needed for sleep DIFLUCAN 100 1 tablet DIFLUCAN 050519 FLUCONAZOLE Inactive MG TAB by mouth 100 MG TAB daily ALPRAZOLAM Take 1 ALPRAZOLAM ALPRAZOLAM Inactive XR [id number] tablet by XR [id number] mouth at [id number] bedtime TRAMADOL HCL 1-2 TRAMADOL 060725 TRAMADOL HCL Inactive 50 MG TABS tablets HCL 50 MG every 6-8 TABS hours as needed for pain SEROQUEL XR one p.o. SEROQUEL XR QUETIAPINE Inactive 50 MG q. evening 50 MG FUMARATE [id number] PERMETHRIN 5 apply neck PERMETHRIN 400399 PERMETHRIN Inactive % CREA to toes 5 % CREA tonight and then rinse off in morning. repeat at 7 days DIFLUCAN 100 1 tablet DIFLUCAN 921225 FLUCONAZOLE Inactive MG TAB by mouth 100 MG TAB daily POTASSIUM 1 capsule POTASSIUM POTASSIUM Inactive CHLORIDE CR by mouth CHLORIDE CR CHLORIDE 10 MEQ CPCR daily 10 MEQ CPCR FLUCONAZOLE one p.o. FLUCONAZOLE 19760111 FLUCONAZOLE Inactive 100 MG TABS q. day 2 100 MG TABS days TRAMADOL HCL 1 po tid TRAMADOL 997893 TRAMADOL HCL Inactive 50 MG TABS with ES HCL 50 MG Tylenol TABS NECON 1/35 1 po daily NECON 1/35 NORETHINDRONE- Inactive (28) 1-35 (28) 1-35 ETH ESTRADIOL MG-MCG TABS MG-MCG TABS CIPRO 500 MG 1 tablet CIPRO 500 023260 CIPROFLOXACIN Inactive TAB by mouth MG TAB HCL twice daily ADIPEX-P 1/2 tab po ADIPEX-P 960192 PHENTERMINE Inactive 37.5 MG CAPS q am for 37.5 MG HCL weight CAPS loss ABILIFY 2 MG 1 po q hs ABILIFY 2 701725 ARIPIPRAZOLE Inactive TABS for major MG TABS depression HYDROCHLOROT 2 tabs HYDROCHLORO 589944 HYDROCHLOROTHI Inactive HIAZIDE 25 every THIAZIDE 25 AZIDE MG TABS morning MG TABS ABILIFY 5 MG one p.o. ABILIFY 5 117835 ARIPIPRAZOLE Inactive TABS q. day MG TABS CIPROFLOXACI Take one CIPROFLOXAC 514038 CIPROFLOXACIN Inactive N HCL 500 MG (1) tablet IN HCL 500 HCL TABS by mouth MG TABS twice a day PROMETHAZINE 1 tab by PROMETHAZIN 882057 PROMETHAZINE Inactive HCL 25 MG mouth E HCL 25 MG HCL TABS every 6 TABS hours as needed PHENTERMINE 1 po q am PHENTERMINE 581520 PHENTERMINE Inactive HCL 37.5 MG for wt. HCL 37.5 MG HCL TABS loss TABS AMARYL 1 MG 1 tab AMARYL 1 MG 774637 GLIMEPIRIDE Inactive TABS twice TABS daily METFORMIN 1 tablet METFORMIN 570706 METFORMIN HCL Inactive HCL 500 MG by mouth HCL 500 MG TABS twice TABS daily SPIRONOLACTO 1 tablet SPIRONOLACT 132750 SPIRONOLACTONE Inactive NE 25 MG TAB by mouth ONE 25 MG daily TAB POTASSIUM 2 capsule POTASSIUM POTASSIUM Inactive CHLORIDE CR by mouth CHLORIDE CR CHLORIDE 10 MEQ CPCR daily 10 MEQ CPCR LISINOPRIL 1 tablet LISINOPRIL 556464 LISINOPRIL Inactive 20 MG TABS by mouth 20 MG TABS daily DIFLUCAN 100 1 tablet DIFLUCAN 860598 FLUCONAZOLE Inactive MG TABS by mouth 100 MG TABS every other day for 2 doses DIFLUCAN 100 1 tablet DIFLUCAN 531731 FLUCONAZOLE Inactive MG TAB by mouth 100 MG TAB daily x 3 days PREDNISONE 2 tablets PREDNISONE 499335 PREDNISONE Inactive 20 MG TAB today, 20 MG TAB then 1 tablet days 2-4 VYVANSE 20 1 tablet VYVANSE 20 LISDEXAMFETAMI Inactive MG ORAL CAPS daily for MG ORAL NE DIMESYLATE binge CAPS eating disorder TRAMADOL HCL 1/2 po tid TRAMADOL 146770 TRAMADOL HCL Inactive 50 MG TABS with ES HCL 50 MG Tylenol TABS prn pain AMOXICILLIN 2 po BID x AMOXICILLIN 371420 AMOXICILLIN Inactive 500 MG CAPS 10 days 500 MG CAPS PREDNISONE 2 tabs PREDNISONE 825581 PREDNISONE Inactive 20 MG TAB daily for [...] Panel - Chemistry sodium, serum 137 mmol/L 600-554 9417/08/29 potassium, serum 4.1 mmol/L 3.5-5.2 chloride, serum 100 mmol/L 98-107 carbon dioxide, venous blood 31.1 mmol/L 21.0-32.0 blood glucose 138 mg/dL 65-110 calcium, serum 9.2 mg/dL 8.5-10.1 urea nitrogen, blood 9 mg/dL 7-18 creatinine, serum 0.80 mg/dL 0.60-1.30 Lab Report: CBC, Comp. Metabolic Panel, HGBA1C - Chemistry sodium, serum 140 mmol/L 857-562 2022/04/13 potassium, serum 3.9 mmol/L 3.5-5.2 chloride, serum [...] 219 10^3/MM^3 10*3/mm3 142-424 Lab Report: Chlamydia/GC APTIMA/[id number] - Lab chlamydia DNA probe NOT DETECTED NOT DETECTED Lab Report: Chlamydia/GC APTIMA/[id number] - Microbiology Neisseria gonorrhoeae DNA probe NOT [...] mg/g mg/g{creat} 0-29 sodium, serum 140 mmol/L 878-260 9295/07/21 potassium, serum 3.9 mmol/L 3.5-5.2 chloride, serum [...] 142-424 Encounters Code Encounter Date Provider Facility CPT-61542 Level 3 Est. Patient Joseph Pineda [facility] 14:42:12 CDT -[facility] CPT-39440 Level 3 Est. Patient Joseph Pineda [facility] 22:18:20 CDT -[facility] CPT-17090 Level 3 Est. Patient Joseph Pineda [facility] 16:46:04 CDT -[facility] CPT-95443 Level 3 Est. Patient Joseph Pineda [facility] 15:39:53 CDT -[facility] CPT-54308 Level 3 Est. Patient Maite Sanchez MD [facility] 13:33:34 CDT -[facility] CPT-96575 Level 3 Est. Patient Joseph Pineda [facility] 11:37:08 CDT -[facility] CPT-49385 Level 3 Est. Patient Joseph Pineda [facility] 17:13:29 [employer] -[facility] CPT-73000 Level 3 Est. Patient Joseph Pineda [facility] 18:42:44 CDT CPT-65947 Level 3 Est. Patient Joseph Edwin [facility] 16:25:39 CDT CPT-31350 Level 3 Est. Patient Casey Brower [facility] 09:52:45 CDT -[facility] CPT-64434 Level 3 Est. Patient Joseph Edwin [facility] 11:03:29 [employer] [facility] CPT-51413 Level 3 Est. Patient Joseph Pineda [facility] 11:03:08 [employer] [facility] CPT-47293 Level 3 Est. Patient Joseph Pineda [facility] 14:33:31 CDT -[facility] CPT-62997 Level 3 Est. Patient Joseph Pineda [facility] 17:05:02 [employer] -[facility] CPT-33509 Level 3 Est. Patient Joseph Edwin [facility] 17:48:06 [employer] -[facility] CPT-60682 Level 3 Est. Patient Joseph Pineda [facility] 14:59:22 [employer] -[facility] CPT-52313 Level 3 Est. Patient Joseph Edwin [facility] - 21:45:56 [employer] [facility] CPT-13923 Level 3 Est. Patient Joseph Pineda [facility] 21:29:50 [facility] CPT-46400 Level 3 Est. Patient Joseph Pineda [facility] 12:41:09 [facility] Procedures Code Procedure Name Date Entry Date Standard Description CPT-93532 Sono transvag pelvis non OB uterus ovaries cervix 18:04:34 T CPT-22902 Venipuncture Draw Fee 08:55:49 [employer]
[2016-11-20] MEDS: SALINE FLUSH 10ml SYRINGE IVF PRN ×2 (14:02→15:19)
--- OUTSIDE RECORDS SUMMARY | 2016-11-20 14:02 | External Medical Summary | Clinical Summary ---
:1965 Author Organization [facility] Address [address] [address] Phone Allergies, Adverse Reactions, Alerts Allergy Name Reaction Description Start Date Severity Status Provider VERSED States jsut about Critical Active Gloria Saavedra HOTBED OPERATOR killed her NKDA Critical Active Indigo Yokum JEWELRY BENCH WORKER NKDA Critical No Longer Indigo Yokum JEWELRY BENCH WORKER Active NKDA Critical Inactive Adrianna Elder [...] Resolved Indigo Other malaise 05/24 07/02 Yokum JEWELRY BENCH WORKER and fatigue SLEEP APNEA, 327.23 Active Joseph Pineda Obstructive OBSTRUCTIVE, 06/27 06/27 Farooq DO sleep apnea MILD (adult) (pediatric) OVERWEIGHT 278.02 Inactive Joseph Pineda Overweight 06/28 06/28 Farooq DO Obesity 278.00 Active Indigo Obesity, 06/28 10/18 Yokum JEWELRY BENCH WORKER unspecified OTH GENERAL V70.3 Resolved Maite Gutierrez Other general MEDICAL Laura ONEAL medical EXAMINATION PhD examination for ADMIN administrative PURPOSES purposes OTHER 790.29 Resolved Maite C Other abnormal ABNORMAL 05/20 Laura ONEAL glucose GLUCOSE PhD ACUTE 466.0 Resolved Maite Gutierrez Acute bronchitis BRONCHITIS 09/02 Laura ONEAL PhD DEPENDENT 782.3 Resolved Indigo Edema EDEMA, LEGS, 10/29 10/18 Yokum JEWELRY BENCH WORKER BILATERAL HYPOKALEMIA, 276.8 Resolved Indigo Hypopotassemia MILD 10/29 07/02 Yokum JEWELRY BENCH WORKER Diabetes, 250.00 Inactive Joseph Pineda Diabetes Type 2 06/27 06/27 Farooq DO mellitus without mention of complication, type II or unspecified type, not stated as uncontrolled Diabetes 250.02 Resolved Indigo Diabetes mellitus, 06/27 10/18 Yokum JEWELRY BENCH WORKER mellitus without type II, mention of [...] Resolved Indigo Routine gynecological 12/14 07/02 Yokum JEWELRY BENCH WORKER gynecological examination examination Postmenopausa 627.1 Resolved Indigo Postmenopausal l bleeding 12/14 07/02 Yokum JEWELRY BENCH WORKER bleeding Screening for V76.51 Resolved Indigo Screening for malignant 12/26 07/02 Yokum JEWELRY BENCH WORKER malignant neoplasms of neoplasms of colon colon Insomnia, 307.42 Active Indigo 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 JEWELRY BENCH WORKER disorder of initiating or maintaining sleep Establish V68.89 Resolved Indigo Encounters for care or get 01/16 07/02 Yokum JEWELRY BENCH WORKER other specified acquainted administrative visit purpose Weakness, 342.90 Resolved Indigo Hemiplegia, left side of 06/20 10/18 Yokum JEWELRY BENCH WORKER unspecified, body affecting unspecified side TIA 435.9 Active Indigo Unspecified 06/20 07/02 Yokum JEWELRY BENCH WORKER transient cerebral ischemia Knee pain, 719.46 Active Indigo Pain in joint bilateral 06/20 10/18 Yokum JEWELRY BENCH WORKER involving lower leg Bronchitis 490 Resolved Indigo Bronchitis, not 07/23 10/18 Yokum JEWELRY BENCH WORKER specified as acute or chronic Diabetes 357.2 Active Maliheh Polyneuropathy mellitus, 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 ESCAPEMENT MATCHER 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 y Knee pain, 719.46 Active Indigo Pain in joint right 06/20 10/18 Yokum JEWELRY BENCH WORKER involving lower leg Jesi 112.3 Active Indigo Candidiasis of intertrigo 10/09 10/18 Yokum JEWELRY BENCH WORKER skin and nails Hyperlipidemi 272.4 Active Anne Other and a 12/24 12/24 Neil unspecified RMA hyperlipidemia Incontinence, 788.33 Active Indigo Mixed mixed, 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 JEWELRY BENCH WORKER incontinence urge/stress (female) (male) Female stress 625.6 Active Yury Monaco Stress incontinence 01/03 01/03 Cy patel MD female Vaginal odor 623.8 Active Gloria Other specified 05/28 05/28 Naff HOTBED OPERATOR noninflammatory disorders of vagina Urinary tract 599.0 Active Indigo Urinary tract infection 05/28 05/28 Yok JEWELRY BENCH WORKER infection, site not specified Urine odor 791.9 Active Indigo Other 05/28 06/26 Yokum JEWELRY BENCH WORKER nonspecific findings on examination of urine ABNORMAL VAGINAL ICD-626.9 Inactive Maite Sanchez BLEEDING PhD SCABIES ICD-133.0 Inactive Maite Sanchez PhD FATIGUE ICD-780.79 Inactive Indigo Yokum JEWELRY BENCH WORKER OTH GENERAL ICD-V70.3 Inactive Maite Sanchez MEDICAL PhD EXAMINATION ADMIN PURPOSES OTHER ABNORMAL ICD-790.29 Inactive Maite Sanchez GLUCOSE MD PhD ACUTE BRONCHITIS ICD-466.0 Inactive Maite Sanchez PhD DEPENDENT EDEMA, ICD-782.3 Inactive Indigo Yokum LEGS, BILATERAL JEWELRY BENCH WORKER HYPOKALEMIA, MILD ICD-276.8 Inactive Indigo Yokum JEWELRY BENCH WORKER Diabetes mellitus, ICD-250.02 Inactive Indigo Yokum type II, JEWELRY BENCH WORKER uncontrolled Sinusitis, ICD-461.1 Inactive Ismael Coyne frontal, acute Amandeep ONEAL Laryngitis, acute ICD-464.00 Inactive Ismael Coyne Amandeep ONEAL Routine ICD-V72.31 Inactive Indigo Yokum gynecological JEWELRY BENCH WORKER examination Postmenopausal ICD-627.1 Inactive Indigo Yokum 2015 bleeding JEWELRY BENCH WORKER Screening for ICD-V76.51 Inactive Indigo Yokum 2015 malignant JEWELRY BENCH WORKER neoplasms of colon Establish care or ICD-V68.89 Inactive Indigo Yokum get acquainted JEWELRY BENCH WORKER visit Weakness, left ICD-342.90 Inactive Indigo Yokum side of body JEWELRY BENCH WORKER Bronchitis ICD-490 Inactive Indigo Yokum JEWELRY BENCH WORKER Medication List Medication Instructions Start Stop Generic NDC Status Provider Patient Date Date Name Instruction REGINALDRE 5 1 tablet SOLIFENACIN 45154203781 Active J Carlos Enrique Active MG TABS daily SUCCINATE Cy ONEAL CIPRO 250 MG 1 tablet 2 CIPROFLOXACIN 34720766551 No Indigo Active TAB by mouth 0 HCL Longer Yokum twice 1 Active JEWELRY BENCH WORKER daily 7 METFORMIN 2 tablets 2 METFORMIN HCL 06127208893 No Indigo Active HCL 500 MG by mouth 0 Longer Yokum TB24 twice 1 Active JEWELRY BENCH WORKER daily 2 AMARYL 1 MG 1 tablet 2 GLIMEPIRIDE 34789530597 No Indigo Active ORAL TABS orally 0 Longer Yokum twice 1 Active JEWELRY BENCH WORKER daily 2 NYSTATIN apply to NYSTATIN 92734462028 Active Indigo Active 246396 rash TID Yokum UNIT/GM CREA PRN JEWELRY BENCH WORKER TROKENDI XR 2 tab TOPIRAMATE 00382979783 Active Maliheh Active 100 MG ORAL daily Ziglari [id number] ESCAPEMENT MATCHER METOPROLOL 1 tab po METOPROLOL 40109090494 Active Indigo Active TARTRATE 25 bid TARTRATE Yokum MG TABS JEWELRY BENCH WORKER AZITHROMYCIN 2 po qd x 2 AZITHROMYCIN 41505727308 No Jillina Active 250 MG TABS 1 day, 0 Longer Frazell then 1 po 1 Active JEWELRY BENCH WORKER qd x 4 6 days / 0 3 / 2 6 PREDNISONE 2 pills 2 PREDNISONE 67888895237 No Jillina Active 20 MG TAB daily x 4 0 Longer Frazell days 1 Active JEWELRY BENCH WORKER 6 / 0 3 / 2 5 PIOGLITAZONE take one a PIOGLITAZONE 99494460582 Active Maliheh Active HCL 30 MG day HCL Ziglari ORAL TABS ESCAPEMENT MATCHER JANUVIA 100 1 tablet 2 SITAGLIPTIN 33695578274 No Indigo Active MG TABS by mouth 0 PHOSPHATE Longer Yokum daily 1 Active JEWELRY BENCH WORKER 6 / 0 2 / 1 6 ATORVASTATIN 1 pill by ATORVASTATIN 62583662101 Active Indigo Active CALCIUM 10 mouth CALCIUM Yokum MG TABS nightly, JEWELRY BENCH WORKER for cholestero l ASPIRIN 81 1 po qd ASPIRIN 94904154911 Active Indigo Active MG ORAL TABS Yokum JEWELRY BENCH WORKER NITROFURANTO One 2 NITROFURANTOIN 67441856273 No Indigo Active IN MONOHYD capsule 0 MONOHYD MACRO Longer Yokum MACRO 100 MG BID for 1 Active JEWELRY BENCH WORKER CAPS UTI 6 / 0 / 3 TRAMADOL HCL 1/2 po tid 2 TRAMADOL HCL 41776485575 No Jillina Active 50 MG TABS with ES 0 Longer Frazell Tylenol 1 Active JEWELRY BENCH WORKER prn pain 5 / 0 2 VYVANSE 20 1 tablet 2 LISDEXAMFETAMIN 98483266168 No Jillina Active MG ORAL CAPS daily for 0 E DIMESYLATE Longer Frazell binge 1 Active JEWELRY BENCH WORKER eating 5 disorder / 0 2 LASIX 20 MG 2 tablet FUROSEMIDE 50494772998 Active Indigo Active TAB by mouth Yokum daily JEWELRY BENCH WORKER CELEBREX 200 1 tablet CELECOXIB 11839084155 Active Indigo Active MG CAPS by mouth Yokum daily with JEWELRY BENCH WORKER meals PREDNISONE 2 tablets 2 PREDNISONE 02812258388 No Joseph W Active 20 MG TAB today, 0 Longer Farooq DO then 1 1 Active tablet 5 days 2-4 / 0 4 / 1 3 DIFLUCAN 100 1 tablet 2 FLUCONAZOLE 36324286905 No Joseph W Active MG TAB by mouth 0 Longer Farooq DO daily x 3 1 Active days 5 / 0 4 / 1 3 DIFLUCAN 100 1 tablet 2 FLUCONAZOLE 40537942350 No Joseph W Active MG TABS by mouth 0 Longer Farooq DO every 1 Active other day 5 for 2 / doses 0 1 / 2 3 ZOFRAN 4 MG 1 po q6hr ONDANSETRON HCL 12084508754 Active Joseph W Active TABS PRN Nausea Farooq DO PREDNISONE 2 tabs 2 PREDNISONE 80318187745 No Joseph W Active 20 MG TAB daily for 0 Longer Farooq DO 3 days, 1 1 Active tab daily 4 for 3 / days, 1/2 1 tab daily 0 for 2 days / 2 5 AMOXICILLIN 2 po BID x 2 AMOXICILLIN 72383934039 No Maite C Active 500 MG CAPS 10 days 0 Longer Laura ONEAL 1 Active PhD 0 / 2 0 LISINOPRIL 1 tablet 2 LISINOPRIL 70901566934 No Maite C Active 20 MG TABS by mouth 0 Longer Kimberlyl MD daily 1 Active PhD 0 / 0 POTASSIUM 2 capsule 2 POTASSIUM 60302010221 No Joseph W Active CHLORIDE CR by mouth 0 CHLORIDE Longer Farooq DO 10 MEQ CPCR daily 1 Active 4 / 0 8 / 2 9 SPIRONOLACTO 1 tablet 2 SPIRONOLACTONE 81129979542 No Joseph W Active NE 25 MG TAB by mouth 0 Longer Farooq DO daily 1 Active 4 / 0 8 2 9 METFORMIN 1 tablet 2 METFORMIN HCL 07145021234 No Joseph W Active HCL 500 MG by mouth 0 Longer Farooq DO TABS twice 1 Active daily 4 / 0 8 / 2 9 AMARYL 1 MG 1 tab 2 GLIMEPIRIDE 47298435173 No Joseph W Active TABS twice 0 Longer Farooq DO daily 1 Active 4 / 0 8 / 2 9 PHENTERMINE 1 po q am 2 PHENTERMINE HCL 94950910580 No Joseph W Active HCL 37.5 MG for wt. 0 Longer Farooq DO TABS loss 1 Active 3 / 1 2 / 2 3 PROMETHAZINE 1 tab by 2 PROMETHAZINE 70771910858 No Joseph W Active HCL 25 MG mouth 0 HCL Longer Farooq DO TABS every 6 1 Active hours as 3 needed / 0 9 / 0 9 CIPROFLOXACI Take one 2 CIPROFLOXACIN 28275799696 No Joseph W Active N HCL 500 MG (1) tablet 0 HCL Longer Farooq DO TABS by mouth 1 Active twice a 3 day / 0 9 / 0 9 ABILIFY 5 MG one p.o. 2 ARIPIPRAZOLE 27670535170 No Joseph W Active TABS q. day 0 Longer Farooq DO 1 Active 3 / 0 9 / 0 9 HYDROCHLOROT 2 tabs 2 HYDROCHLOROTHIA 21304502830 No Joseph W Active HIAZIDE 25 every 0 ZIDE Longer Farooq DO MG TABS morning 1 Active 3 / 0 6 / 2 7 ABILIFY 2 MG 1 po q hs 2 ARIPIPRAZOLE 28508497209 No Joseph W Active TABS for major 0 Longer [facility] depression 1 Active 3 / 0 5 / 0 7 ADIPEX-P 1/2 tab po 2 PHENTERMINE HCL 28930785030 No Casey Active 37.5 MG CAPS q am for 0 Longer [facility] [place] weight 1 Active loss 3 / 0 5 / 0 1 CIPRO 500 MG 1 tablet 2 CIPROFLOXACIN 25743656790 No Casey Active TAB by mouth 0 HCL Longer [facility] [place] twice 1 Active daily 3 / 0 5 / 0 1 NECON 1 po daily 2 NORETHINDRONE-E 36944187744 No Casey Active () - 0 ESTRADIOL Longer [facility] [place] MG-MCG TABS 1 Active 3 / 0 5 / 0 1 TRAMADOL HCL 1 po tid 2 TRAMADOL HCL 71286463288 No Casey Active 50 MG TABS with ES 0 Longer [facility] [place] Tylenol 1 Active 3 / 0 5 / 0 1 FLUCONAZOLE one p.o. 2 FLUCONAZOLE 81063163715 No Casey Active 100 MG TABS q. day 2 0 Longer [facility] [place] days 1 Active 3 / 0 5 / 0 1 POTASSIUM 1 capsule 2 POTASSIUM 16884942424 No Casey Active CHLORIDE CR by mouth 0 CHLORIDE Longer [facility] [place] 10 MEQ CPCR daily 1 Active 3 / 0 5 / 0 1 IMIPRAMINE Take 6 IMIPRAMINE HCL 72544150906 Active Indigo Active HCL 50 MG tablets by Yokum TABS mouth at JEWELRY BENCH WORKER bedtime DIFLUCAN 100 1 tablet 2 FLUCONAZOLE 28581178813 No Joseph W Active MG TAB by mouth 0 Longer [facility] daily 1 Active 2 / 0 2 / 2 4 VERAPAMIL 2 po bid VERAPAMIL HCL 53113152699 Active Indigo Active HCL CR 120 Yokum MG TAB CR JEWELRY BENCH WORKER PERMETHRIN 5 apply neck 2 PERMETHRIN 81639354825 No Joseph W Active % CREA to toes 0 Longer [facility] tonight 1 Active and then 2 rinse off / in 0 morning. 1 repeat at / 7 days 2 0 SEROQUEL XR one p.o. 2 QUETIAPINE 13226959736 No Joseph W Active 50 MG q. evening 0 FUMARATE Longer Farooq DO [id number] 1 Active 2 / 0 1 / 2 0 TRAMADOL HCL 1-2 2 TRAMADOL HCL 13230986894 No Joseph W Active 50 MG TABS tablets 0 Longer Farooq DO every 6-8 1 Active hours as 2 needed for / pain 0 1 / 2 0 ALPRAZOLAM 3 one p.o. ALPRAZOLAM 05998508549 Active Indigo Active MG [id number] q.h.s. Yokum JEWELRY BENCH WORKER ALPRAZOLAM Take 1 2 ALPRAZOLAM 44732877335 No Joseph W Active XR [id number] tablet by 0 [id number] Longer Farooq DO mouth at 1 Active bedtime 1 / 2 9 DIFLUCAN 100 1 tablet 2 FLUCONAZOLE 73760638861 No Joseph W Active MG TAB by mouth 0 Longer Farooq DO daily 1 Active 0 / 0 6 AMBIEN 10 MG 1 tab by ZOLPIDEM 48099210736 Active Indigo Active TAB mouth at TARTRATE Yokum bedtime as JEWELRY BENCH WORKER needed for sleep DIFLUCAN 100 1 tablet DIFLUCAN 394013 FLUCONAZOLE Inactive MG TAB by mouth 100 MG TAB daily ALPRAZOLAM Take 1 ALPRAZOLAM ALPRAZOLAM Inactive XR [id number] tablet by XR [id number] mouth at [id number] bedtime TRAMADOL HCL 1-2 TRAMADOL 073156 TRAMADOL HCL Inactive 50 MG TABS tablets HCL 50 MG every 6-8 TABS hours as needed for pain SEROQUEL XR one p.o. SEROQUEL XR QUETIAPINE Inactive 50 MG q. 50 MG FUMARATE [id number] evening [id number] PERMETHRIN 5 apply PERMETHRIN 997732 PERMETHRIN Inactive % CREA neck to 5 % CREA toes tonight and then rinse off in morning. repeat at 7 days DIFLUCAN 100 1 tablet DIFLUCAN 900496 FLUCONAZOLE Inactive MG TAB by mouth 100 MG TAB daily POTASSIUM 1 capsule POTASSIUM POTASSIUM Inactive CHLORIDE CR by mouth CHLORIDE CR CHLORIDE 10 MEQ CPCR daily 10 MEQ CPCR FLUCONAZOLE one p.o. FLUCONAZOLE 19760111 FLUCONAZOLE Inactive 100 MG TABS q. day 2 100 MG TABS days TRAMADOL HCL 1 po tid TRAMADOL 782957 TRAMADOL HCL Inactive 50 MG TABS with ES HCL 50 MG Tylenol TABS NECON 35 1 po NECON NORETHINDRONE- Inactive () 1-35 daily () 1-35 ETH ESTRADIOL MG-MCG TABS MG-MCG TABS CIPRO 500 MG 1 tablet CIPRO 500 714262 CIPROFLOXACIN Inactive TAB by mouth MG TAB HCL twice daily ADIPEX-P 1/2 tab ADIPEX-P 460879 PHENTERMINE Inactive 37.5 MG CAPS po q am 37.5 MG HCL for CAPS weight loss ABILIFY 2 MG 1 po q hs ABILIFY 2 601022 ARIPIPRAZOLE Inactive TABS for major MG TABS depressio n HYDROCHLOROT 2 tabs HYDROCHLORO 486389 HYDROCHLOROTHI Inactive HIAZIDE 25 every THIAZIDE 25 AZIDE MG TABS morning MG TABS ABILIFY 5 MG one p.o. ABILIFY 5 506782 ARIPIPRAZOLE Inactive TABS q. day MG TABS CIPROFLOXACI Take one CIPROFLOXAC 750417 CIPROFLOXACIN Inactive N HCL 500 MG (1) IN HCL 500 HCL TABS tablet by MG TABS mouth twice a day PROMETHAZINE 1 tab by PROMETHAZIN 253158 PROMETHAZINE Inactive HCL 25 MG mouth E HCL 25 MG HCL TABS every 6 TABS hours as needed PHENTERMINE 1 po q am PHENTERMINE 395427 PHENTERMINE Inactive HCL 37.5 MG for wt. HCL 37.5 MG HCL TABS loss TABS AMARYL 1 MG 1 tab AMARYL 1 MG 19910808 GLIMEPIRIDE Inactive TABS twice TABS daily METFORMIN 1 tablet METFORMIN 341345 METFORMIN HCL Inactive HCL 500 MG by mouth HCL 500 MG TABS twice TABS daily SPIRONOLACTO 1 tablet SPIRONOLACT 299256 SPIRONOLACTONE Inactive NE 25 MG TAB by mouth ONE 25 MG daily TAB POTASSIUM 2 capsule POTASSIUM POTASSIUM Inactive CHLORIDE CR by mouth CHLORIDE CR CHLORIDE 10 MEQ CPCR daily 10 MEQ CPCR LISINOPRIL 1 tablet LISINOPRIL 873791 LISINOPRIL Inactive 20 MG TABS by mouth 20 MG TABS daily DIFLUCAN 100 1 tablet DIFLUCAN 664000 FLUCONAZOLE Inactive MG TABS by mouth 100 MG TABS every other day for 2 doses DIFLUCAN 100 1 tablet DIFLUCAN 503829 FLUCONAZOLE Inactive MG TAB by mouth 100 MG TAB daily x 3 days PREDNISONE 2 tablets PREDNISONE 352830 PREDNISONE Inactive 20 MG TAB today, 20 MG TAB then 1 tablet days 2-4 VYVANSE 20 1 tablet VYVANSE 20 LISDEXAMFETAMI Inactive MG ORAL CAPS daily for MG ORAL NE DIMESYLATE binge CAPS eating disorder TRAMADOL HCL 1/2 po TRAMADOL 696410 TRAMADOL HCL Inactive 50 MG TABS tid [...] TB24 daily AMOXICILLIN 2 po BID AMOXICILLIN 286656 AMOXICILLIN Inactive 500 MG CAPS x 10 days 500 MG CAPS PREDNISONE 2 tabs PREDNISONE 852255 PREDNISONE Inactive 20 MG TAB daily for 20 MG TAB 3 days, 1 tab daily for 3 days, 1/2 tab daily for 2 days NITROFURANTO One NITROFURANT 6547908 NITROFURANTOIN Inactive IN MONOHYD capsule OIN MONOHYD MONOHYD MACRO MACRO 100 MG BID for MACRO 100 CAPS UTI MG CAPS PREDNISONE 2 pills PREDNISONE 845193 PREDNISONE Inactive 20 MG TAB daily x 4 20 MG TAB days AZITHROMYCIN 2 po qd x AZITHROMYCI 1721322 AZITHROMYCIN Inactive 250 MG TABS 1 day, N 250 MG then 1 po TABS qd x 4 days CIPRO 250 MG 1 tablet CIPRO 250 692653 CIPROFLOXACIN Inactive TAB by mouth MG TAB [...] HGBA1C - Chemistry sodium, serum 140 mmol/L 473-906 9765/06/03 potassium, serum 3.9 mmol/L 3.5-5.2 chloride, serum [...] 214 10^3/MM^3 10*3/mm3 142-424 Lab Report: Chlamydia/GC APTIMA/[id number] - Lab chlamydia DNA probe NOT DETECTED NOT DETECTED Lab Report: Chlamydia/GC APTIMA/[id number] - Microbiology Neisseria gonorrhoeae DNA probe NOT DETECTED NOT DETECTED Lab Report: Lipid Panel - Chemistry cholesterol, serum 157 mg/dL 194-246 6844/08/22 triglyceride, serum, fasting 215 mg/dL 30-200 HDL [...] mg/dL Encounters Code Encounter Date Provider Facility CPT-93385 Level 4 Est. Patient [facility] - 17:02:40 COMMANDING OFFICER TRAFFIC [employer]ISION [employer] CPT-66485 Level 4 New Patient [facility] 15:17:12 CDT CPT-67168 Level 3 Est. Patient [facility] - 13:37:46 CDT [employer] CPT-31329 Level 4 Est. Patient [facility] - 10:01:06 CDT [employer] CPT-36510 Level 3 Est. Patient [facility] 08:58:07 CDT ESCAPEMENT MATCHER CPT-33901 Level 3 Est. [facility] JEWELRY BENCH WORKER CPT-86115 Level 4 Est. Patient [facility] 17:29:53 COMMANDING OFFICER TRAFFIC DIVISION ESCAPEMENT MATCHER CPT-63835 Level 4 Est. Patient [facility] 09:51:54 COMMANDING OFFICER TRAFFIC DIVISION CPT-29609 Level 3 Est. Patient [facility] 18:59:38 CDT CPT-05805 Level 3 Est. Patient Joseph Pineda [facility] 14:42:12 CDT -[facility] CPT-93162 Level 3 Est. Patient Joseph Trivedi [facility] 22:18:20 CDT -C CPT-27060 Level 3 Est. Patient Joseph W [facility] 16:46:04 CDT -[facility] CPT-72527 Level 3 Est. Patient Joseph Pineda [facility] 15:39:53 CDT -[facility] CPT-72950 Level 3 Est. Patient Maite Sanchez MD [facility] 13:33:34 CDT -[facility] CPT-27000 Level 3 Est. Patient Joseph Pineda [facility] 11:37:08 CDT -[facility] CPT-26737 Level 3 Est. Patient Joseph Pineda [facility] 17:13:29 COMMANDING OFFICER TRAFFIC DIVISION -[facility] CPT-66281 Level 3 Est. Patient Joseph Pineda [facility] 18:42:44 CDT CPT-01677 Level 3 Est. Patient Joseph Pineda [facility] 16:25:39 CDT CPT-35108 Level 3 Est. Patient Casey Brower [facility] 09:52:45 CDT -[facility] CPT-17916 Level 3 Est. Patient Joseph Pineda [facility] 11:03:29 COMMANDING OFFICER TRAFFIC DIVISION -[facility] CPT-72667 Level 3 Est. Patient Joseph Pineda [facility] 11:03:08 COMMANDING OFFICER TRAFFIC DIVISION -[facility] CPT-17472 Level 3 Est. Patient Joseph Pineda [facility] 14:33:31 CDT -[facility] CPT-54741 Level 3 Est. Patient Joseph Pineda [facility] 17:05:02 COMMANDING OFFICER TRAFFIC DIVISION -[facility] CPT-94388 Level 3 Est. Patient Joseph Pineda [facility] 17:48:06 COMMANDING OFFICER TRAFFIC DIVISION -[facility] CPT-90083 Level 3 Est. Patient Joseph Pineda [facility] 14:59:22 COMMANDING OFFICER TRAFFIC DIVISION -[facility] CPT-51968 Level 3 Est. Patient Joseph Pineda [facility] - 21:45:56 COMMANDING OFFICER TRAFFIC DIVISION [place] [facility] CPT-41024 Level 3 Est. Patient Joseph Edwin [facility] 21:29:50 CDT -[facility] CPT-45703 Level 3 Est. Patient [facility] 12:41:09 CDT -[facility] Procedures Code Procedure Name Date Entry Date Standard Description CPT-90404 Wet Mount - LAB USE ONLY 12:39:03 [employer] CPT-45443 Vaginal Culture - LAB USE ONLY 12:39:03 [employer] CPT-85997 Urine Culture - LAB USE ONLY 11:52:44 [employer] CPT-11266 UA w micro - LAB USE ONLY 11:52:44 [employer]ING [employer] CPT-46753 Postop F/U Visit 12:08:35 CDT CPT-08363 Postop F/U Visit 18:20:10 CDT CPT-A4351 Coloplast Female Cath 09:37:10 CDT CPT-03449 Urine Dip (Floor Use Only) 15:17:13 CDT CPT-72811 Dil F ureth int 15:17:13 CDT CPT-78942 Venipuncture Draw Fee 09:19:08 CDT CPT-90018 Lipid - LAB USE ONLY 09:19:07 CDT CPT-JTINJ Asp/Joint Injection 09:26:49 CDT CPT-76636 Chest 2V Frontal and Lat 14:47:43 CDT CPT-JTINJ Asp/Joint Injection 09:51:53 [employer] CPT-OV Office Visit 17:39:05 CDT CPT-OV Office Visit 15:19:50 CDT CPT-57595 Sono transvag pelvis non OB uterus ovaries cervix 18:04:34 CDT CPT-07612 Venipuncture Draw Fee 08:55:49 COMMANDING OFFICER [employer]FFIC DIVISION
--- OUTSIDE RECORDS SUMMARY | 2016-11-20 14:02 | External Medical Summary | Clinical Summary ---
:1965 Author Organization [facility] Address [address] [address] Phone Allergies, Adverse Reactions, Alerts Allergy Name Reaction Description Start Date Severity Status Provider NKDA Critical Active Indigo Yonickieum DEADENER NKDA Critical No Longer Indigo Yokum DEADENER Active NKDA Critical Inactive Adrianna Elder Conditions [...] Resolved Indigo Other malaise 05/24 07/02 Yokum DEADENER and fatigue SLEEP APNEA, 327.23 Active Joseph Pineda Obstructive OBSTRUCTIVE, 06/27 06/27 Farooq DO sleep apnea MILD (adult) (pediatric) OVERWEIGHT 278.02 Inactive Joseph Pineda Overweight 06/28 06/28 Farooq DO Obesity 278.00 Active Indigo Obesity, 06/28 10/18 Yokum DEADENER unspecified OTH GENERAL V70.3 Resolved Maite Gutierrez Other general MEDICAL Laura ONEAL medical EXAMINATION PhD examination for ADMIN PURPOSES administrative purposes OTHER ABNORMAL 790.29 Resolved Maite C Other abnormal GLUCOSE 05/20 Laura ONEAL glucose PhD ACUTE 466.0 Resolved Maite C Acute BRONCHITIS 09/02 Laura ONEAL bronchitis PhD DEPENDENT 782.3 Resolved Indigo Edema EDEMA, LEGS, 10/29 10/18 Yokum DEADENER BILATERAL HYPOKALEMIA, 276.8 Resolved Indigo Hypopotassemia MILD 10/29 07/02 Youm DEADENER Diabetes, Type 250.00 Inactive Joseph Pineda Diabetes 2 06/27 06/27 Farooq DO mellitus without mention of complication, type II or unspecified type, not stated as uncontrolled Diabetes 250.02 Resolved Indigo Diabetes mellitus, type 06/27 DEADENER mellitus II, without mention uncontrolled of complication, [...] Resolved Indigo Routine gynecological 12/14 07/02 Yo DEADENER gynecological examination examination Postmenopausal 627.1 Resolved Indigo Postmenopausal bleeding 12/14 DEADENER bleeding Screening for V76.51 Resolved Indigo Screening for malignant 12/26 07/02 Yokum DEADENER malignant neoplasms of neoplasms of colon colon Insomnia, 307.42 Active Indigo 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 DEADENER disorder of initiating or maintaining sleep Establish care V68.89 Resolved Indigo Encounters for or get 01/16 07/02 Yo DEADENER other specified acquainted administrative visit purpose Weakness, left 342.90 Resolved Indigo Hemiplegia, side of body 06/20 10/18 Yokum DEADENER unspecified, affecting unspecified side TIA 435.9 Active Indigo Unspecified 06/20 07/02 Yokum DEADENER transient cerebral ischemia Knee pain, 719.46 Active Indigo Pain in joint bilateral 06/20 10/18 Yokum DEADENER involving lower leg Bronchitis 490 Resolved Indigo Bronchitis, not 07/23 10/18 Yokum DEADENER specified as acute or chronic Diabetes 357.2 Active Maliheh Polyneuropathy mellitus, 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SUTURE POLISHER 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y Knee pain, 719.46 Active Indigo Pain in joint right 06/20 10/18 Yokum DEADENER involving lower leg Jesi 112.3 Active Indigo Candidiasis of intertrigo 10/09 10/18 Yokum DEADENER skin and nails Hyperlipidemia 272.4 Active Anne Other and 12/24 12/24 Neil unspecified RMA hyperlipidemia Incontinence, 788.33 Active Indigo Mixed mixed, 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 DEADENER incontinence urge/stress (female) (male) Female stress 625.6 Active Yury AnthonyCarlos Enrique Stress incontinence 01/03 01/03 Cy patel MD female ABNORMAL VAGINAL ICD-626.9 Inactive Maite Sanchez BLEEDING PhD SCABIES ICD-133.0 Inactive Maite Sanchez PhD FATIGUE ICD-780.79 Inactive Indigo Yokum DEADENER OTH GENERAL ICD-V70.3 Inactive Maite Sanchez MEDICAL PhD EXAMINATION ADMIN PURPOSES OTHER ABNORMAL ICD-790.29 Inactive Maite Sanchez GLUCOSE PhD ACUTE BRONCHITIS ICD-466.0 Inactive Maite Matt Sanchez PhD DEPENDENT EDEMA, ICD-782.3 Inactive Indigo Yokum LEGS, BILATERAL DEADENER HYPOKALEMIA, MILD ICD-276.8 Inactive Indigo Yokum DEADENER Diabetes mellitus, ICD-250.02 Inactive Indigo Yokum type II, DEADENER uncontrolled Sinusitis, ICD-461.1 Inactive Ismael Coyne frontal, acute Amandeep ONEAL Laryngitis, acute ICD-464.00 Inactive Ismael Coyne Amandeep ONEAL Routine ICD-V72.31 Inactive Indigo Yokum gynecological DEADENER examination Postmenopausal ICD-627.1 Inactive Indigo Yokum 2015 bleeding DEADENER Screening for ICD-V76.51 Inactive Indigo Yokum 2015 malignant DEADENER neoplasms of colon Establish care or ICD-V68.89 Inactive Indigo Yokum get acquainted DEADENER visit Weakness, left ICD-342.90 Inactive Indigo Yokum side of body DEADENER Bronchitis ICD-490 Inactive Indigo Yokum DEADENER Medication List Medication Instructions Start Stop Generic NDC Status Provider Patient Date Date Name Instruction METFORMIN 2 tablets METFORMIN 10632441857 No Indigo Active HCL 500 MG by mouth HCL Longer Yokum TB24 twice Active DEADENER daily AMARYL 1 MG 1 tablet GLIMEPIRID 40974807823 No Indigo Active ORAL TABS orally E Longer Yokum twice Active DEADENER daily NYSTATIN apply to NYSTATIN 42528308639 Active Indigo Active 170532 rash TID Yokum UNIT/GM PRN DEADENER CREA TROKENDI XR 2 tab TOPIRAMATE 68069571284 Active Malihe Active 100 MG ORAL daily h [id number] Ziglar i SUTURE POLISHER METOPROLOL 1 tab po METOPROLOL 27589320060 Active Indigo Active TARTRATE 25 bid TARTRATE Yokum MG TABS DEADENER AZITHROMYCI 2 po qd x AZITHROMYC 79118979699 No Jillin Active N 250 MG 1 day, IN Longer a TABS then 1 po Active Frazel qd x 4 l DEADENER days PREDNISONE 2 pills PREDNISONE 49695790075 No Jillin Active 20 MG TAB daily x 4 Longer a days Active Frazel l DEADENER PIOGLITAZON take one PIOGLITAZO 59821756163 Active Malihe Active E HCL 30 MG a day NE HCL h ORAL TABS Ziglar i SUTURE POLISHER JANUVIA 100 1 tablet SITAGLIPTI 46926643551 No Indigo Active MG TABS by mouth N Longer Yokum daily PHOSPHATE Active DEADENER ATORVASTATI 1 pill by ATORVASTAT 73536070974 Active Indigo Active N CALCIUM mouth IN CALCIUM Yokum 10 MG TABS nightly, DEADENER for cholester ol ASPIRIN 81 1 po qd ASPIRIN 37305973063 Active Indigo Active MG ORAL Yokum TABS DEADENER NITROFURANT One NITROFURAN 03898645330 No Indigo Active OIN MONOHYD capsule TOIN Longer Yokum MACRO 100 BID for MONOHYD Active DEADENER MG CAPS UTI MACRO TRAMADOL 1/2 po TRAMADOL 19397017684 No Jillin Active HCL 50 MG tid with HCL Longer a TABS ES Active Frazel Tylenol l DEADENER prn pain VYVANSE 20 1 tablet LISDEXAMFE 87282908559 No Jillin Active MG ORAL daily for TAMINE Longer a CAPS binge DIMESYLATE Active Frazel eating l DEADENER disorder LASIX 20 MG 2 tablet FUROSEMIDE 85314774995 Active Indigo Active TAB by mouth Yokum daily DEADENER CELEBREX 1 tablet CELECOXIB 93180759579 Active Indigo Active 200 MG CAPS by mouth Yokum daily DEADENER with meals PREDNISONE 2 tablets PREDNISONE 22167006580 No Joseph Active 20 MG TAB today, Longer W Farooq then 1 Active DO tablet days 2-4 DIFLUCAN 1 tablet FLUCONAZOL 17647413634 No Joseph Active 100 MG TAB by mouth E Longer W Farooq daily x 3 Active DO days DIFLUCAN 1 tablet FLUCONAZOL 15764317653 No Joseph Active 100 MG TABS by mouth E Longer W Farooq every Active DO other day for 2 doses ZOFRAN 4 MG 1 po q6hr ONDANSETRO 97116840740 Active Joseph Active TABS PRN N HCL W Farooq Nausea DO PREDNISONE 2 tabs PREDNISONE 48009601305 No Joseph Active 20 MG TAB daily for Longer W Farooq 3 days, 1 Active DO tab daily for 3 days, 1/2 tab daily for 2 days AMOXICILLIN 2 po BID AMOXICILLI 68681407422 No Maite C Active 500 MG CAPS x 10 days N Longer Madril Active PhD LISINOPRIL 1 tablet LISINOPRIL 20428474741 No Maite C Active 20 MG TABS by mouth Longer Madril daily Active PhD POTASSIUM 2 capsule POTASSIUM 04574837404 No Joseph Active CHLORIDE CR by mouth CHLORIDE Longer W Farooq 10 MEQ CPCR daily Active DO SPIRONOLACT 1 tablet SPIRONOLAC 29748758317 No Joseph Active ONE 25 MG by mouth TONE Longer W Farooq TAB daily Active DO METFORMIN 1 tablet METFORMIN 94888792386 No Joseph Active HCL 500 MG by mouth HCL Longer W Farooq TABS twice Active DO daily AMARYL 1 MG 1 tab GLIMEPIRID 75402057174 No Joseph Active TABS twice E Longer W Farooq daily Active DO PHENTERMINE 1 po q am PHENTERMIN 34575394999 No Joseph Active HCL 37.5 MG for wt. E HCL Longer W Farooq TABS loss Active DO PROMETHAZIN 1 tab by PROMETHAZI 10305738597 No Joseph Active E HCL 25 MG mouth NE HCL Longer W Farooq TABS every 6 Active DO hours as needed CIPROFLOXAC Take one CIPROFLOXA 02479039030 No Joseph Active IN HCL 500 (1) DELORES HCL Longer W Farooq MG TABS tablet by Active DO mouth twice a day ABILIFY 5 one p.o. ARIPIPRAZO 95363021348 No Joseph Active MG TABS q. day LE Longer W Farooq Active DO HYDROCHLORO 2 tabs HYDROCHLOR 43910555872 No Joseph Active THIAZIDE 25 every OTHIAZIDE Longer W Farooq MG TABS morning Active DO ABILIFY 2 1 po q hs ARIPIPRAZO 97014534538 No Joseph Active MG TABS for major LE Longer W Farooq depressio Active DO n ADIPEX-P 1/2 tab PHENTERMIN 52189211293 No Casey Active 37.5 MG po q am E HCL Longer Leonarda CAPS for Active PA weight loss CIPRO 500 1 tablet CIPROFLOXA 14634920357 No Casey Active MG TAB by mouth DELORES HCL Longer [place] twice Active PA daily NECON 1/35 1 po NORETHINDR 33785885122 No Casey Active (28) 1-35 daily ONE-ETH Longer [place] MG-MCG TABS ESTRADIOL Active PA TRAMADOL 1 po tid TRAMADOL 33003287600 No Casey Active HCL 50 MG with ES HCL Longer [place] TABS Tylenol Active PA FLUCONAZOLE one p.o. FLUCONAZOL 39877859875 No Casey Active 100 MG TABS q. day 2 E Longer [place] days Active PA POTASSIUM 1 capsule POTASSIUM 34594867877 No Casey Active CHLORIDE CR by mouth CHLORIDE Longer 10 MEQ CPCR daily Active PA IMIPRAMINE Take 6 IMIPRAMINE 12707377340 Active Indigo Active HCL 50 MG tablets HCL Yokum TABS by mouth DEADENER at bedtime DIFLUCAN 1 tablet FLUCONAZOL 51101399342 No Joseph Active 100 MG TAB by mouth E Longer W Farooq daily Active DO VERAPAMIL 2 po bid VERAPAMIL 78320333842 Active Indigo Active HCL CR 120 HCL Yokum MG TAB CR DEADENER PERMETHRIN apply PERMETHRIN 45906195208 No Joseph Active 5 % CREA neck to Longer W Farooq toes Active DO tonight and then rinse off in morning. repeat at 7 days SEROQUEL XR one p.o. QUETIAPINE 21219741467 No Joseph Active 50 MG q. FUMARATE Longer W Farooq [id number] evening Active DO TRAMADOL 1-2 TRAMADOL 30135851368 No Joseph Active HCL 50 MG tablets HCL Longer W Farooq TABS every 6-8 Active DO hours as needed for pain ALPRAZOLAM one p.o. ALPRAZOLAM 62384718484 Active Indigo Active 3 MG q.h.s. Yokum [id number] DEADENER ALPRAZOLAM Take 1 ALPRAZOLAM 13960928136 No Joseph Active XR tablet by [id number] Longer W Farooq [id number] mouth at Active DO bedtime DIFLUCAN 1 tablet FLUCONAZOL 57991472474 No Joseph Active 100 MG TAB by mouth E Longer W Farooq daily Active DO AMBIEN 10 1 tab by ZOLPIDEM 14076772084 Active Indigo Active MG TAB mouth at TARTRATE Yokum bedtime DEADENER as needed for sleep DIFLUCAN 100 1 tablet DIFLUCAN 306812 FLUCONAZOLE Inactive MG TAB by mouth 100 MG TAB daily ALPRAZOLAM Take 1 ALPRAZOLAM ALPRAZOLAM Inactive XR [id number] tablet by XR [id number] mouth at [id number] bedtime TRAMADOL HCL 1-2 TRAMADOL 418911 TRAMADOL HCL Inactive 50 MG TABS tablets HCL 50 MG every 6-8 TABS hours as needed for pain SEROQUEL XR one p.o. SEROQUEL XR QUETIAPINE Inactive 50 MG q. 50 MG FUMARATE [id number] evening [id number] PERMETHRIN 5 apply PERMETHRIN 442600 PERMETHRIN Inactive % CREA neck to 5 % CREA toes tonight and then rinse off in morning. repeat at 7 days DIFLUCAN 100 1 tablet DIFLUCAN 170893 FLUCONAZOLE Inactive MG TAB by mouth 100 MG TAB daily POTASSIUM 1 capsule POTASSIUM POTASSIUM Inactive CHLORIDE CR by mouth CHLORIDE CR CHLORIDE 10 MEQ CPCR daily 10 MEQ CPCR FLUCONAZOLE one p.o. FLUCONAZOLE 983300 FLUCONAZOLE Inactive 100 MG TABS q. day 2 100 MG TABS days TRAMADOL HCL 1 po tid TRAMADOL 709786 TRAMADOL HCL Inactive 50 MG TABS with ES HCL 50 MG Tylenol TABS NECON 1/35 1 po NECON 1/35 NORETHINDRONE- Inactive (28) 1-35 daily (28) 1-35 ETH ESTRADIOL MG-MCG TABS MG-MCG TABS CIPRO 500 MG 1 tablet CIPRO 500 956950 CIPROFLOXACIN Inactive TAB by mouth MG TAB HCL twice daily ADIPEX-P 1/2 tab ADIPEX-P 605511 PHENTERMINE Inactive 37.5 MG CAPS po q am 37.5 MG HCL for CAPS weight loss ABILIFY 2 MG 1 po q hs ABILIFY 2 018541 ARIPIPRAZOLE Inactive TABS for major MG TABS depressio n HYDROCHLOROT 2 tabs HYDROCHLORO 471365 HYDROCHLOROTHI Inactive HIAZIDE 25 every THIAZIDE 25 AZIDE MG TABS morning MG TABS ABILIFY 5 MG one p.o. ABILIFY 5 696714 ARIPIPRAZOLE Inactive TABS q. day MG TABS CIPROFLOXACI Take one CIPROFLOXAC 869847 CIPROFLOXACIN Inactive N HCL 500 MG (1) IN HCL 500 HCL TABS tablet by MG TABS mouth twice a day PROMETHAZINE 1 tab by PROMETHAZIN 451925 PROMETHAZINE Inactive HCL 25 MG mouth E HCL 25 MG HCL TABS every 6 TABS hours as needed PHENTERMINE 1 po q am PHENTERMINE 500203 PHENTERMINE Inactive HCL 37.5 MG for wt. HCL 37.5 MG HCL TABS loss TABS AMARYL 1 MG 1 tab AMARYL 1 MG 078592 GLIMEPIRIDE Inactive TABS twice TABS daily METFORMIN 1 tablet METFORMIN 875812 METFORMIN HCL Inactive HCL 500 MG by mouth HCL 500 MG TABS twice TABS daily SPIRONOLACTO 1 tablet SPIRONOLACT 194032 SPIRONOLACTONE Inactive NE 25 MG TAB by mouth ONE 25 MG daily TAB POTASSIUM 2 capsule POTASSIUM POTASSIUM Inactive CHLORIDE CR by mouth CHLORIDE CR CHLORIDE 10 MEQ CPCR daily 10 MEQ CPCR LISINOPRIL 1 tablet LISINOPRIL 555601 LISINOPRIL Inactive 20 MG TABS by mouth 20 MG TABS daily DIFLUCAN 100 1 tablet DIFLUCAN 19760111 FLUCONAZOLE Inactive MG TABS by mouth 100 MG TABS every other day for 2 doses DIFLUCAN 100 1 tablet DIFLUCAN 910823 FLUCONAZOLE Inactive MG TAB by mouth 100 MG TAB daily x 3 days PREDNISONE 2 tablets PREDNISONE 180083 PREDNISONE Inactive 20 MG TAB today, 20 MG TAB then 1 tablet days 2-4 VYVANSE 20 1 tablet VYVANSE 20 LISDEXAMFETAMI Inactive MG ORAL CAPS daily for MG ORAL NE DIMESYLATE binge CAPS eating disorder TRAMADOL HCL 1/2 po TRAMADOL 454890 TRAMADOL HCL Inactive 50 MG TABS tid with HCL 50 MG ES TABS Tylenol prn pain JANUVIA 100 1 tablet JANUVIA 100 SITAGLIPTIN Inactive MG TABS by mouth MG TABS PHOSPHATE daily AMARYL 1 MG 1 tablet AMARYL 1 MG 731302 GLIMEPIRIDE Inactive ORAL TABS orally ORAL TABS twice daily METFORMIN 2 tablets METFORMIN METFORMIN HCL Inactive HCL 500 MG by mouth HCL 500 MG TB24 twice TB24 daily AMOXICILLIN 2 po BID AMOXICILLIN 133304 AMOXICILLIN Inactive 500 MG CAPS x 10 days 500 MG CAPS PREDNISONE 2 tabs PREDNISONE 112172 PREDNISONE Inactive 20 MG TAB daily for 20 MG TAB 3 days, 1 tab daily for 3 days, 1/2 tab daily for 2 days NITROFURANTO One NITROFURANT 8412680 NITROFURANTOIN Inactive IN MONOHYD capsule OIN MONOHYD MONOHYD MACRO MACRO 100 MG BID for MACRO 100 CAPS UTI MG CAPS PREDNISONE 2 pills PREDNISONE 741231 PREDNISONE Inactive 20 MG TAB daily x 4 20 MG TAB days AZITHROMYCIN 2 po qd x AZITHROMYCI 2712216 AZITHROMYCIN Inactive 250 MG TABS 1 day, [...] HGBA1C - Chemistry sodium, serum 140 mmol/L 396-640 1149/06/03 potassium, serum 3.9 mmol/L 3.5-5.2 chloride, serum [...] Panel - Chemistry sodium, serum 136 mmol/L 709-656 1918/01/04 carbon dioxide, venous blood 27.0 mmol/L 21.0-32.0 potassium, serum 4.6 mmol/L 3.5-5.2 chloride, serum 98 mmol/L 98-107 blood glucose 174 mg/dL 65-110 urea nitrogen, blood 12 mg/dL 7-18 creatinine, serum 0.78 mg/dL 0.55-1.30 alanine aminotransferase (SGPT), serum 65 U/L 12-78 aspartate aminotransferase (SGOT), serum 34 U/L 15-37 calcium, serum 8.9 mg/dL 8.5-10.1 bilirubin, serum, total 0.40 mg/dL 0.00-1.00 cholesterol, serum 219 mg/dL 349-007 5813/01/04 triglyceride, serum, fasting 214 mg/dL 30-200 HDL cholesterol, serum 39 mg/dL 32-96 LDL cholesterol, serum 137 mg/dL 0-130 Lab Report: Lipid Panel - Chemistry cholesterol, serum 157 mg/dL 315-727 1107/08/22 triglyceride, serum, fasting 215 mg/dL 30-200 HDL [...] mg/dL Encounters Code Encounter Date Provider Facility CPT-03861 Level 4 New Patient Yury Benoit MD [facility] 15:17:12 CDT CPT-73295 Level 3 Est. Patient Formerly [facility] - 13:37:46 CDT [place] CPT-43166 Level 4 Est. Patient [facility] - 10:01:06 CDT [place] CPT-32329 Level 3 Est. Patient [facility] 08:58:07 CDT SUTURE POLISHER CPT-03358 Level 3 Est[facility] [place] CPT-47812 Level 4 Est. Patient [facility] 17:29:53 PROCESS IMPROVEMENT MANAGER SUTURE POLISHER CPT-61301 Level 4 Est. Patient Formerly [facility] 09:51:54 PROCESS IMPROVEMENT MANAGER CPT-28934 Level 3 Est. Patient [facility] 18:59:38 CDT CPT-04650 Level 3 Est. Patient Joseph Pineda [facility] 14:42:12 CDT -[facility] CPT-39236 Level 3 Est. Patient Joseph Trivedi [facility] 22:18:20 CDT -C CPT-46283 Level 3 Est. Patient Joseph W [facility] 16:46:04 CDT -[facility] CPT-60302 Level 3 Est. Patient Joseph Pineda [facility] 15:39:53 CDT -[facility] CPT-07570 Level 3 Est. Patient Maite Sanchez MD PhD [facility] 13:33:34 CDT -[facility] CPT-97897 Level 3 Est. Patient Joseph Pineda [facility] 11:37:08 CDT -[facility] CPT-73266 Level 3 Est. Patient Joseph Pineda [facility] 17:13:29 PROCESS IMPROVEMENT MANAGER -[facility] CPT-90583 Level 3 Est. Patient Joseph Pineda [facility] 18:42:44 CDT CPT-06361 Level 3 Est. Patient Joseph Pineda [facility] 16:25:39 CDT CPT-29705 Level 3 Est. Patient Casey Brower [facility] 09:52:45 CDT -[facility] CPT-73503 Level 3 Est. Patient Joseph Pineda [facility] 11:03:29 PROCESS IMPROVEMENT MANAGER -[facility] CPT-70130 Level 3 Est. Patient Joseph Pineda [facility] 11:03:08 PROCESS IMPROVEMENT MANAGER -[facility] CPT-18540 Level 3 Est. Patient Joseph Pineda [facility] 14:33:31 CDT -[facility] CPT-89037 Level 3 Est. Patient Joseph Pineda [facility] 17:05:02 PROCESS IMPROVEMENT MANAGER -[facility] CPT-75412 Level 3 Est. Patient Joseph Pineda [facility] 17:48:06 PROCESS IMPROVEMENT MANAGER -[facility] CPT-18023 Level 3 Est. Patient Joseph Pineda [facility] 14:59:22 PROCESS IMPROVEMENT MANAGER -[facility] CPT-10063 Level 3 Est. Patient Joseph Pineda [facility] - 21:45:56 PROCESS IMPROVEMENT MANAGER [place] [facility] CPT-65878 Level 3 Est. Patient Joseph Edwin [facility] 21:29:50 CDT -[facility] CPT-75562 Level 3 Est. Patient Joseph Trivedi DO [facility] 12:41:09 CDT -[facility] Procedures Code Procedure Name Date Entry Date Standard Description CPT-43900 Postop F/U Visit 12:08:35 CDT CPT-32354 Postop F/U Visit 18:20:10 CDT CPT-A4351 Coloplast Female Cath 09:37:10 CDT CPT-00064 Urine Dip (Floor Use Only) 15:17:13 CDT CPT-58895 Dil F ureth int 15:17:13 CDT CPT-90031 Venipuncture Draw Fee 09:19:08 CDT CPT-24442 Lipid - LAB USE ONLY 09:19:07 CDT CPT-JTINJ Asp/Joint Injection 09:26:49 CDT CPT-95969 Chest 2V Frontal and Lat 14:47:43 CDT CPT-JTINJ Asp/Joint Injection 09:51:53 PROCESS IMPROVEMENT MANAGER CPT-OV Office Visit 17:39:05 CDT CPT-OV Office Visit 15:19:50 CDT CPT-08433 Sono transvag pelvis non OB uterus ovaries cervix 18:04:34 CDT CPT-11915 Venipuncture Draw Fee 08:55:49 PROCESS IMPROVEMENT MANAGER
--- OUTSIDE RECORDS SUMMARY | 2016-11-20 14:03 | External Medical Summary ---
:1965 [facility] Team Providers Name Role Phone ARELIS ALLEN INDIGO Primary Care Provider [phone] Summary purpose TRANSITION OF CARE AUTO GENERATION [...] tests and/or laboratory data RESULTS Radiology Results [id number]:00 CAROTID DUPLEX PACs Image DATE OF EXAM: Jun 23 2015 [id number] CAROTID DUPLEX SONO : RADIOLOGY REPORT DATE [...] WP/ashley 06/23/2015 10:07:00 / 06/23/2015 10:14:58 cc:Indigo Infante APRN This document has been electronically Signed by: On: DATE OF EXAM: Jun 23 2015 [id number] CAROTID DUPLEX SONO : RADIOLOGY REPORT DATE [...] WP/nh 06/23/2015 10:07:00 / 06/23/2015 10:14:58 cc:Indigo Infante APRN This document has been electronically Signed by: GLEN ROSARIO DO On: Jun 23 20151:54P Result Amended on 2015-06-23 at 13:54:06. Previous status was [place]. History of procedures Procedure Code Code Type Description Date Performed Performing Physician [id number] CPT-4 EXTRACRANIAL BILAT 06-23-2015 INDIGO INFANTE STUDY Functional status No functional or cognitive status [...]
--- OUTSIDE RECORDS SUMMARY | 2016-11-20 14:03 | External Medical Summary | Clinical Summary ---
:1965 Author Organization [facility] Address [address] [address] Phone Allergies, Adverse Reactions, Alerts Allergy Name Reaction Description Start Date Severity Status Provider NKDA Critical Active Indigomikayla Jordanum RUG DESIGNER NKDA Critical No Longer Indigo Yokum RUG DESIGNER Active NKDA Critical Inactive Adrianna Elder Conditions [...] Resolved Indigo Other malaise 05/24 07/02 Yokum RUG DESIGNER and fatigue SLEEP APNEA, 327.23 Active Joseph Pineda Obstructive OBSTRUCTIVE, 06/27 06/27 Farooq DO sleep apnea MILD (adult) (pediatric) OVERWEIGHT 278.02 Inactive Joseph Pineda Overweight 06/28 06/28 Farooq DO Obesity 278.00 Active Indigo Obesity, 06/28 10/18 Yokum RUG DESIGNER unspecified OTH GENERAL V70.3 Resolved Maite Gutierrez Other general MEDICAL Laura ONEAL medical EXAMINATION PhD examination for ADMIN PURPOSES administrative purposes OTHER ABNORMAL 790.29 Resolved Maite C Other abnormal GLUCOSE 05/20 Laura ONEAL glucose PhD ACUTE 466.0 Resolved Maite C Acute BRONCHITIS 09/02 Laura ONEAL bronchitis PhD DEPENDENT 782.3 Resolved Indigo Edema EDEMA, LEGS, 10/29 10/18 Yokum RUG DESIGNER BILATERAL HYPOKALEMIA, 276.8 Resolved Indigo Hypopotassemia MILD 10/29 07/02 Youm RUG DESIGNER Diabetes, Type 250.00 Inactive Joseph Pineda Diabetes 2 06/27 06/27 Farooq DO mellitus without mention of complication, type II or unspecified type, not stated as uncontrolled Diabetes 250.02 Resolved Indigo Diabetes mellitus, type 06/27 RUG DESIGNER mellitus II, without mention uncontrolled of complication, [...] Resolved Indigo Routine gynecological 12/14 07/02 Yo RUG DESIGNER gynecological examination examination Postmenopausal 627.1 Resolved Indigo Postmenopausal bleeding 12/14 RUG DESIGNER bleeding Screening for V76.51 Resolved Indigo Screening for malignant 12/26 07/02 Yokum RUG DESIGNER malignant neoplasms of neoplasms of colon colon Insomnia, 307.42 Active Indigo 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 RUG DESIGNER disorder of initiating or maintaining sleep Establish care V68.89 Resolved Indigo Encounters for or get 01/16 07/02 Yo RUG DESIGNER other specified acquainted administrative visit purpose Weakness, left 342.90 Resolved Indigo Hemiplegia, side of body 06/20 10/18 Yokum RUG DESIGNER unspecified, affecting unspecified side TIA 435.9 Active Indigo Unspecified 06/20 07/02 Yokum RUG DESIGNER transient cerebral ischemia Knee pain, 719.46 Active Indigo Pain in joint bilateral 06/20 10/18 Yokum RUG DESIGNER involving lower leg Bronchitis 490 Resolved Indigo Bronchitis, not 07/23 10/18 Yokum RUG DESIGNER specified as acute or chronic Diabetes 357.2 Active Maliheh Polyneuropathy mellitus, 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RADIO DISPATCHER 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y Knee pain, 719.46 Active Indigo Pain in joint right 06/20 10/18 Yokum RUG DESIGNER involving lower leg Jesi 112.3 Active Indigo Candidiasis of intertrigo 10/09 10/18 Yokum RUG DESIGNER skin and nails Hyperlipidemia 272.4 Active Anne Other and 12/24 12/24 Neil unspecified RMA hyperlipidemia Incontinence, 788.33 Active Indigo Mixed mixed, 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 RUG DESIGNER incontinence urge/stress (female) (male) Female stress 625.6 Active Yury AnthonyCarlos Enrique Stress incontinence 01/03 01/03 Cy patel MD female ABNORMAL VAGINAL ICD-626.9 Inactive Maite Sanchez BLEEDING PhD SCABIES ICD-133.0 Inactive Maite Sanchez PhD FATIGUE ICD-780.79 Inactive Indigo Yokum RUG DESIGNER OTH GENERAL ICD-V70.3 Inactive Maite Sanchez MEDICAL PhD EXAMINATION ADMIN PURPOSES OTHER ABNORMAL ICD-790.29 Inactive Maite Sanchez GLUCOSE PhD ACUTE BRONCHITIS ICD-466.0 Inactive Maite Matt Sanchez PhD DEPENDENT EDEMA, ICD-782.3 Inactive Indigo Yokum LEGS, BILATERAL RUG DESIGNER HYPOKALEMIA, MILD ICD-276.8 Inactive Indigo Yokum RUG DESIGNER Diabetes mellitus, ICD-250.02 Inactive Indigo Yokum type II, RUG DESIGNER uncontrolled Sinusitis, ICD-461.1 Inactive Ismael Coyne frontal, acute Amandeep ONEAL Laryngitis, acute ICD-464.00 Inactive Ismael Coyne Amandeep ONEAL Routine ICD-V72.31 Inactive Indigo Yokum gynecological RUG DESIGNER examination Postmenopausal ICD-627.1 Inactive Indigo Yokum 2015 bleeding RUG DESIGNER Screening for ICD-V76.51 Inactive Indigo Yokum 2015 malignant RUG DESIGNER neoplasms of colon Establish care or ICD-V68.89 Inactive Indigo Yokum get acquainted RUG DESIGNER visit Weakness, left ICD-342.90 Inactive Indigo Yokum side of body RUG DESIGNER Bronchitis ICD-490 Inactive Indigo Yokum RUG DESIGNER Medication List Medication Instructions Start Stop Generic NDC Status Provider Patient Date Date Name Instruction METFORMIN 2 tablets METFORMIN [id number] No Indigo Active HCL 500 MG by mouth HCL Longer Yokum TB24 twice Active RUG DESIGNER daily AMARYL 1 MG 1 tablet GLIMEPIRID 17904032696 No Indigo Active ORAL TABS orally E Longer Yokum twice Active RUG DESIGNER daily NYSTATIN apply to NYSTATIN 21191546793 Active Indigo Active 482750 rash TID Yokum UNIT/GM PRN RUG DESIGNER CREA TROKENDI XR 2 tab TOPIRAMATE 27408084321 Active Malihe Active 100 MG ORAL daily h [id number] Ziglar i RADIO DISPATCHER METOPROLOL 1 tab po METOPROLOL 77660642212 Active Indigo Active TARTRATE 25 bid TARTRATE Yokum MG TABS RUG DESIGNER AZITHROMYCI 2 po qd x AZITHROMYC 21833863024 No Jillin Active N 250 MG 1 day, IN Longer a TABS then 1 po Active Frazel qd x 4 l RUG DESIGNER days PREDNISONE 2 pills PREDNISONE 00552927767 No Jillin Active 20 MG TAB daily x 4 Longer a days Active Frazel l RUG DESIGNER PIOGLITAZON take one PIOGLITAZO 65380025805 Active Malihe Active E HCL 30 MG a day NE HCL h ORAL TABS Ziglar i RADIO DISPATCHER JANUVIA 100 1 tablet SITAGLIPTI 33780225074 No Indigo Active MG TABS by mouth N Longer Yokum daily PHOSPHATE Active RUG DESIGNER ATORVASTATI 1 pill by ATORVASTAT 60869420866 Active Indigo Active N CALCIUM mouth IN CALCIUM Yokum 10 MG TABS nightly, RUG DESIGNER for cholester ol ASPIRIN 81 1 po qd ASPIRIN 56909128941 Active Indigo Active MG ORAL Yokum TABS RUG DESIGNER NITROFURANT One NITROFURAN 81073146789 No Indigo Active OIN MONOHYD capsule TOIN Longer Yokum MACRO 100 BID for MONOHYD Active RUG DESIGNER MG CAPS UTI MACRO TRAMADOL 1/2 po TRAMADOL 14172290471 No Jillin Active HCL 50 MG tid with HCL Longer a TABS ES Active Frazel Tylenol l RUG DESIGNER prn pain VYVANSE 20 1 tablet LISDEXAMFE 51218722712 No Jillin Active MG ORAL daily for TAMINE Longer a CAPS binge DIMESYLATE Active Frazel eating l RUG DESIGNER disorder LASIX 20 MG 2 tablet FUROSEMIDE 27691221442 Active Indigo Active TAB by mouth Yokum daily RUG DESIGNER CELEBREX 1 tablet CELECOXIB 65409760856 Active Indigo Active 200 MG CAPS by mouth Yokum daily RUG DESIGNER with meals PREDNISONE 2 tablets PREDNISONE 80516291540 No Joseph Active 20 MG TAB today, Longer W Farooq then 1 Active DO tablet days 2-4 DIFLUCAN 1 tablet FLUCONAZOL 19684401853 No Joseph Active 100 MG TAB by mouth E Longer W Farooq daily x 3 Active DO days DIFLUCAN 1 tablet FLUCONAZOL 74782736404 No Joseph Active 100 MG TABS by mouth E Longer W Farooq every Active DO other day for 2 doses ZOFRAN 4 MG 1 po q6hr ONDANSETRO 35883195605 Active Joseph Active TABS PRN N HCL W Farooq Nausea DO PREDNISONE 2 tabs PREDNISONE 99012824650 No Joseph Active 20 MG TAB daily for Longer W Farooq 3 days, 1 Active DO tab daily for 3 days, 1/2 tab daily for 2 days AMOXICILLIN 2 po BID AMOXICILLI 30747098206 No Maite C Active 500 MG CAPS x 10 days N Longer Madril Active PhD LISINOPRIL 1 tablet LISINOPRIL 51006305833 No Maite C Active 20 MG TABS by mouth Longer Madril daily Active PhD POTASSIUM 2 capsule POTASSIUM 53904391749 No Joseph Active CHLORIDE CR by mouth CHLORIDE Longer W Farooq 10 MEQ CPCR daily Active DO SPIRONOLACT 1 tablet SPIRONOLAC 00237897375 No Joseph Active ONE 25 MG by mouth TONE Longer W Farooq TAB daily Active DO METFORMIN 1 tablet METFORMIN 07818576806 No Joseph Active HCL 500 MG by mouth HCL Longer W Farooq TABS twice Active DO daily AMARYL 1 MG 1 tab GLIMEPIRID 82034389130 No Joseph Active TABS twice E Longer W Farooq daily Active DO PHENTERMINE 1 po q am PHENTERMIN 96204358694 No Joseph Active HCL 37.5 MG for wt. E HCL Longer W Farooq TABS loss Active DO PROMETHAZIN 1 tab by PROMETHAZI 76629439311 No Joseph Active E HCL 25 MG mouth NE HCL Longer W Farooq TABS every 6 Active DO hours as needed CIPROFLOXAC Take one CIPROFLOXA 30256278830 No Joseph Active IN HCL 500 (1) DELORES HCL Longer W Farooq MG TABS tablet by Active DO mouth twice a day ABILIFY 5 one p.o. ARIPIPRAZO 47563166026 No Joseph Active MG TABS q. day LE Longer W Farooq Active DO HYDROCHLORO 2 tabs HYDROCHLOR 55334543122 No Joseph Active THIAZIDE 25 every OTHIAZIDE Longer W Farooq MG TABS morning Active DO ABILIFY 2 1 po q hs ARIPIPRAZO 23808511355 No Joseph Active MG TABS for major LE Longer W Farooq depressio Active DO n ADIPEX-P 1/2 tab PHENTERMIN 61134397093 No Casey Active 37.5 MG po q am E HCL Longer Leonarda CAPS for Active PA weight loss CIPRO 500 1 tablet CIPROFLOXA 48495797337 No Casey Active MG TAB by mouth DELORES HCL Longer Leonarda twice Active PA daily NECON 1/35 1 po NORETHINDR 93668102863 No Casey Active (28) 1-35 daily ONE-ETH Longer Leonarda MG-MCG TABS ESTRADIOL Active PA TRAMADOL 1 po tid TRAMADOL 52225687526 No Casey Active HCL 50 MG with ES HCL Longer Leonarda TABS Tylenol Active PA FLUCONAZOLE one p.o. FLUCONAZOL 90558837170 No Casey Active 100 MG TABS q. day 2 E Longer Leonarda days Active PA POTASSIUM 1 capsule POTASSIUM 01820130071 No Casey Active CHLORIDE CR by mouth CHLORIDE Longer 10 MEQ CPCR daily Active PA IMIPRAMINE Take 6 IMIPRAMINE 29723225704 Active Indigo Active HCL 50 MG tablets HCL Yokum TABS by mouth RUG DESIGNER at bedtime DIFLUCAN 1 tablet FLUCONAZOL 02751046731 No Joseph Active 100 MG TAB by mouth E Longer W Farooq daily Active DO VERAPAMIL 2 po bid VERAPAMIL 46421352512 Active Indigo Active HCL CR 120 HCL Yokum MG TAB CR RUG DESIGNER PERMETHRIN apply PERMETHRIN 10648294885 No Joseph Active 5 % CREA neck to Longer W Farooq toes Active DO tonight and then rinse off in morning. repeat at 7 days SEROQUEL XR one p.o. QUETIAPINE 83404751474 No Joseph Active 50 MG q. FUMARATE Longer W Farooq [id number] evening Active DO TRAMADOL 1-2 TRAMADOL 77653788166 No Joseph Active HCL 50 MG tablets HCL Longer W Farooq TABS every 6-8 Active DO hours as needed for pain ALPRAZOLAM one p.o. ALPRAZOLAM 48405017508 Active Indigo Active 3 MG q.h.s. Yokum [id number] RUG DESIGNER ALPRAZOLAM Take 1 ALPRAZOLAM 22740083561 No Joseph Active XR tablet by [id number] Longer W Farooq [id number] mouth at Active DO bedtime DIFLUCAN 1 tablet FLUCONAZOL 05287817116 No Joseph Active 100 MG TAB by mouth E Longer W Farooq daily Active DO AMBIEN 10 1 tab by ZOLPIDEM 80171610587 Active Indigo Active MG TAB mouth at TARTRATE Yokum bedtime RUG DESIGNER as needed for sleep DIFLUCAN 100 1 tablet DIFLUCAN 143420 FLUCONAZOLE Inactive MG TAB by mouth 100 MG TAB daily ALPRAZOLAM Take 1 ALPRAZOLAM ALPRAZOLAM Inactive XR [id number] tablet by XR [id number] mouth at [id number] bedtime TRAMADOL HCL 1-2 TRAMADOL 128705 TRAMADOL HCL Inactive 50 MG TABS tablets HCL 50 MG every 6-8 TABS hours as needed for pain SEROQUEL XR one p.o. SEROQUEL XR QUETIAPINE Inactive 50 MG q. 50 MG FUMARATE [id number] evening [id number] PERMETHRIN 5 apply PERMETHRIN 242460 PERMETHRIN Inactive % CREA neck to 5 % CREA toes tonight and then rinse off in morning. repeat at 7 days DIFLUCAN 100 1 tablet DIFLUCAN 609214 FLUCONAZOLE Inactive MG TAB by mouth 100 MG TAB daily POTASSIUM 1 capsule POTASSIUM POTASSIUM Inactive CHLORIDE CR by mouth CHLORIDE CR CHLORIDE 10 MEQ CPCR daily 10 MEQ CPCR FLUCONAZOLE one p.o. FLUCONAZOLE 109387 FLUCONAZOLE Inactive 100 MG TABS q. day 2 100 MG TABS days TRAMADOL HCL 1 po tid TRAMADOL 437269 TRAMADOL HCL Inactive 50 MG TABS with ES HCL 50 MG Tylenol TABS NECON 1/35 1 po NECON 1/35 NORETHINDRONE- Inactive (28) 1-35 daily (28) 1-35 ETH ESTRADIOL MG-MCG TABS MG-MCG TABS CIPRO 500 MG 1 tablet CIPRO 500 025957 CIPROFLOXACIN Inactive TAB by mouth MG TAB HCL twice daily ADIPEX-P 1/2 tab ADIPEX-P 977969 PHENTERMINE Inactive 37.5 MG CAPS po q am 37.5 MG HCL for CAPS weight loss ABILIFY 2 MG 1 po q hs ABILIFY 2 257148 ARIPIPRAZOLE Inactive TABS for major MG TABS depressio n HYDROCHLOROT 2 tabs HYDROCHLORO 511360 HYDROCHLOROTHI Inactive HIAZIDE 25 every THIAZIDE 25 AZIDE MG TABS morning MG TABS ABILIFY 5 MG one p.o. ABILIFY 5 617315 ARIPIPRAZOLE Inactive TABS q. day MG TABS CIPROFLOXACI Take one CIPROFLOXAC 458235 CIPROFLOXACIN Inactive N HCL 500 MG (1) IN HCL 500 HCL TABS tablet by MG TABS mouth twice a day PROMETHAZINE 1 tab by PROMETHAZIN 088896 PROMETHAZINE Inactive HCL 25 MG mouth E HCL 25 MG HCL TABS every 6 TABS hours as needed PHENTERMINE 1 po q am PHENTERMINE 179667 PHENTERMINE Inactive HCL 37.5 MG for wt. HCL 37.5 MG HCL TABS loss TABS AMARYL 1 MG 1 tab AMARYL 1 MG 705979 GLIMEPIRIDE Inactive TABS twice TABS daily METFORMIN 1 tablet METFORMIN 325365 METFORMIN HCL Inactive HCL 500 MG by mouth HCL 500 MG TABS twice TABS daily SPIRONOLACTO 1 tablet SPIRONOLACT 039154 SPIRONOLACTONE Inactive NE 25 MG TAB by mouth ONE 25 MG daily TAB POTASSIUM 2 capsule POTASSIUM POTASSIUM Inactive CHLORIDE CR by mouth CHLORIDE CR CHLORIDE 10 MEQ CPCR daily 10 MEQ CPCR LISINOPRIL 1 tablet LISINOPRIL 482336 LISINOPRIL Inactive 20 MG TABS by mouth 20 MG TABS daily DIFLUCAN 100 1 tablet DIFLUCAN 19760111 FLUCONAZOLE Inactive MG TABS by mouth 100 MG TABS every other day for 2 doses DIFLUCAN 100 1 tablet DIFLUCAN 131544 FLUCONAZOLE Inactive MG TAB by mouth 100 MG TAB daily x 3 days PREDNISONE 2 tablets PREDNISONE 751070 PREDNISONE Inactive 20 MG TAB today, 20 MG TAB then 1 tablet days 2-4 VYVANSE 20 1 tablet VYVANSE 20 LISDEXAMFETAMI Inactive MG ORAL CAPS daily for MG ORAL NE DIMESYLATE binge CAPS eating disorder TRAMADOL HCL 1/2 po TRAMADOL 859310 TRAMADOL HCL Inactive 50 MG TABS tid with HCL 50 MG ES TABS Tylenol prn pain JANUVIA 100 1 tablet JANUVIA 100 SITAGLIPTIN Inactive MG TABS by mouth MG TABS PHOSPHATE daily AMARYL 1 MG 1 tablet AMARYL 1 MG 121407 GLIMEPIRIDE Inactive ORAL TABS orally ORAL TABS twice daily METFORMIN 2 tablets METFORMIN METFORMIN HCL Inactive HCL 500 MG by mouth HCL 500 MG TB24 twice TB24 daily AMOXICILLIN 2 po BID AMOXICILLIN 318518 AMOXICILLIN Inactive 500 MG CAPS x 10 days 500 MG CAPS PREDNISONE 2 tabs PREDNISONE 993800 PREDNISONE Inactive 20 MG TAB daily for 20 MG TAB 3 days, 1 tab daily for 3 days, 1/2 tab daily for 2 days NITROFURANTO One NITROFURANT 3409392 NITROFURANTOIN Inactive IN MONOHYD capsule OIN MONOHYD MONOHYD MACRO MACRO 100 MG BID for MACRO 100 CAPS UTI MG CAPS PREDNISONE 2 pills PREDNISONE 769403 PREDNISONE Inactive 20 MG TAB daily x 4 20 MG TAB days AZITHROMYCIN 2 po qd x AZITHROMYCI 4326296 AZITHROMYCIN Inactive 250 MG TABS 1 day, [...] HGBA1C - Chemistry sodium, serum 140 mmol/L 064-025 5560/06/03 potassium, serum 3.9 mmol/L 3.5-5.2 chloride, serum [...] Panel - Chemistry sodium, serum 136 mmol/L 005-709 1761/01/04 carbon dioxide, venous blood 27.0 mmol/L 21.0-32.0 potassium, serum 4.6 mmol/L 3.5-5.2 chloride, serum 98 mmol/L 98-107 blood glucose 174 mg/dL 65-110 urea nitrogen, blood 12 mg/dL 7-18 creatinine, serum 0.78 mg/dL 0.55-1.30 alanine aminotransferase (SGPT), serum 65 U/L 12-78 aspartate aminotransferase (SGOT), serum 34 U/L 15-37 calcium, serum 8.9 mg/dL 8.5-10.1 bilirubin, serum, total 0.40 mg/dL 0.00-1.00 cholesterol, serum 219 mg/dL 760-497 1309/01/04 triglyceride, serum, fasting 214 mg/dL 30-200 HDL cholesterol, serum 39 mg/dL 32-96 LDL cholesterol, serum 137 mg/dL 0-130 Lab Report: Lipid Panel - Chemistry cholesterol, serum 157 mg/dL 970-969 6241/08/22 triglyceride, serum, fasting 215 mg/dL 30-200 HDL [...] mg/dL Encounters Code Encounter Date Provider Facility CPT-30752 Level 4 New Patient Yury Benoit MD [facility] 15:17:12 CDT CPT-07009 Level 3 Est. Patient [facility] 13:37:46 [facility]T [place] CPT-02734 Level 4 Est. Patient [facility] - 10:01:06 CDT [place] CPT-06418 Level 3 Est. Patient [facility] 08:58:07 CDT RADIO DISPATCHER CPT-74248 Level 3 Est. Patient Faby Marino [facility] 14:40:56 CDT RUG DESIGNER CPT-47178 Level 4 Est. Patient [facility] 17:29:53 CYBER SECURITY ANALYST RADIO DISPATCHER CPT-24501 Level 4 Est. Patient Indigo Sexton [facility] 09:51:54 CYBER SECURITY ANALYST CPT-02103 Level 3 Est. [facility] CPT-83010 Level 3 Est. Patient Joseph Pineda [facility] 14:42:12 CDT -[facility] CPT-18208 Level 3 Est. Patient [facility] 22:18:20 CDT -[facility] CPT-28489 Level 3 Est. Patient [facility] 16:46:04 CDT -[facility] CPT-71983 Level 3 Est. Patient [facility] 15:39:53 CDT -[facility] CPT-12870 Level 3 Est. Patient Maite Sanchez MD [facility] 13:33:34 CDT -[facility] CPT-89018 Level 3 Est. Patient [facility] 11:37:08 CDT -[facility] CPT-77324 Level 3 Est. Patient Joseph Edwin [facility] 17:13:29 CYBER SECURITY ANALYST -[facility]HC CPT-18096 Level 3 Est. Patient [facility] 18:42:44 CDT CPT-30878 Level 3 Est. Patient [facility] 16:25:39 CDT CPT-58380 Level 3 Est. Patient [facility] 09:52:45 CDT -[facility] CPT-87988 Level 3 Est. Patient Joseph Pineda [facility] 11:03:29 CYBER SECURITY ANALYST -[facility]HC CPT-00821 Level 3 Est. Patient Joseph Pineda [facility] 11:03:08 CYBER SECURITY ANALYST -[facility] CPT-68065 Level 3 Est. Patient Joseph Pineda [facility] 14:33:31 CDT -[facility] CPT-57858 Level 3 Est. Patient Joseph Pineda [facility] 17:05:02 CYBER SECURITY ANALYST -[facility]HC CPT-51127 Level 3 Est. Patient Joseph Pineda [facility] 17:48:06 CYBER SECURITY ANALYST -RHC CPT-20374 Level 3 Est. Patient Joseph Pineda [facility] 14:59:22 CYBER SECURITY ANALYST -RHC CPT-08095 Level 3 Est. Patient Joseph Edwin [facility] - 21:45:56 CYBER SECURITY ANALYST [place] [facility] CPT-68813 Level 3 Est. Patient Joseph Edwin [facility] 21:29:50 CDT -[facility] CPT-76800 Level 3 Est. Patient [facility] 12:41:09 CDT -[facility] Procedures Code Procedure Name Date Entry Date Standard Description CPT-62676 Urine Dip (Floor Use Only) 15:17:13 CDT CPT-86588 Dil F ureth int 15:17:13 CDT CPT-60044 Venipuncture Draw Fee 09:19:08 CDT CPT-63263 Lipid - LAB USE ONLY 09:19:07 CDT CPT-JTINJ Asp/Joint Injection 09:26:49 CDT CPT-86140 Chest 2V Frontal and Lat 14:47:43 CDT CPT-JTINJ Asp/Joint Injection 09:51:53 CYBER SECURITY ANALYST CPT-OV Office Visit 17:39:05 CDT CPT-OV Office Visit 15:19:50 CDT CPT-68368 Sono transvag pelvis non OB uterus ovaries cervix 18:04:34 CDT CPT-87723 Venipuncture Draw Fee 08:55:49 CYBER SECURITY ANALYST
--- OUTSIDE RECORDS SUMMARY | 2016-11-20 14:04 | External Medical Summary | Clinical Summary ---
:1965 Author Organization [facility] Address [address] [place] [address] Phone Allergies, Adverse Reactions, Alerts Allergy Name [...] Ismael Coyne Acute frontal frontal, acute 12/26 VanHouden sinusitis Laryngitis, 464.00 Resolved Ismael Coyne Acute acute 12/26 DuranHoually laryngitis without mention of obstruction Binge eating 307.51 Active Joseph Pineda Bulimia nervosa disorder 08/15 08/15 Farooq DO Routine V72.31 Active Jillina Routine gynecological 12/14 12/14 Frazell gynecological examination [employer] examination Postmenopausal 627.1 Active Jillina Postmenopausal bleeding 12/14 12/14 [place]ell bleeding [employer] Screening for V76.51 Active Ismael Coyne Screening for malignant 12/26 12/26 DuranHouden malignant neoplasms of MD neoplasms of colon colon SCABIES ICD-133.0 Inactive Maite Sanchez PhD OTH GENERAL ICD-V70.3 Inactive Maite Sanchez MEDICAL PhD EXAMINATION ADMIN PURPOSES OTHER ABNORMAL ICD-790.29 Inactive Maite Sanchez GLUCOSE PhD ACUTE BRONCHITIS ICD-466.0 Inactive Maite Sanchez PhD ABNORMAL VAGINAL ICD-626.9 Inactive Maite Sanchez BLEEDING PhD Sinusitis, ICD-461.1 Inactive Ismael Coyne frontal, acute [place] Laryngitis, ICD-464.00 Inactive Ismael Coyne acute Amandeep ONEAL Medication List Medication Instructions Start Stop Generic NDC Status Provider Patient Date Date Name Instruction TRAMADOL 1/2 po TRAMADOL [id number] No Jillina Active HCL 50 MG tid with HCL Longer Frazell TABS ES Active [employer] Tylenol prn pain VYVANSE 20 1 tablet LISDEXAMF 04522053573 No Jillina Active MG ORAL daily for ETAMINE Longer [place]ell CAPS binge DIMESYLAT Active [employer] eating E disorder METFORMIN 2 tablet METFORMIN 69406746748 Active Joseph Pineda Active HCL 500 MG daily for HCL Farooq DO TB24 blood sugars LASIX 20 2 tablet FUROSEMID 09063809738 Active Joseph Pineda Active MG TAB by mouth E Farooq DO daily CELEBREX 1 tablet CELECOXIB 40845549798 Active Joseph Pineda Active 200 MG by mouth Farooq DO CAPS daily with meals PREDNISONE 2 tablets PREDNISON 74720201046 No Joseph Pineda Active 20 MG TAB today, E Longer Farooq DO then 1 Active tablet days 2-4 DIFLUCAN 1 tablet FLUCONAZO 44888944440 No Joseph Pineda Active 100 MG TAB by mouth LE Longer Farooq DO daily x 3 Active days AMARYL 1 1 tablet GLIMEPIRI 41491036897 Active Joseph Pineda Active MG ORAL orally DE Farooq DO TABS twice daily DIFLUCAN 1 tablet FLUCONAZO 31710152668 No Joseph Pineda Active 100 MG by mouth LE Longer Farooq DO TABS every Active other day for 2 doses ZOFRAN 4 1 po q6hr ONDANSETR 86288421565 Active Bam Pineda Active MG TABS PRN ON HCL Dillow Nausea PREDNISONE 2 tabs PREDNISON 40820154718 No Joseph W Active 20 MG TAB daily for E Longer Farooq DO 3 days, 1 Active tab daily for 3 days, 1/2 tab daily for 2 days AMOXICILLI 2 po BID AMOXICILL 01582131600 No Maite C Active N 500 MG x 10 days IN Longer Madril CAPS Active PhD LISINOPRIL 1 tablet LISINOPRI 19529609434 No Maite C Active 20 MG TABS by mouth L Longer Madril daily Active PhD POTASSIUM 2 capsule POTASSIUM 86490207702 No Joseph W Active CHLORIDE by mouth CHLORIDE Longer Farooq DO CR 10 MEQ daily Active CPCR SPIRONOLAC 1 tablet SPIRONOLA 70618727211 No Joseph W Active TONE 25 MG by mouth CTONE Longer Farooq DO TAB daily Active METFORMIN 1 tablet METFORMIN 14672681111 No Joseph W Active HCL 500 MG by mouth HCL Longer Farooq DO TABS twice Active daily AMARYL 1 1 tab GLIMEPIRI 94152661208 No Joseph W Active MG TABS twice DE Longer Farooq DO daily Active PHENTERMIN 1 po q am PHENTERMI 21165315937 No Joseph W Active E HCL 37.5 for wt. NE HCL Longer Farooq DO MG TABS loss Active PROMETHAZI 1 tab by PROMETHAZ 06431122696 No Joseph W Active NE HCL 25 mouth INE HCL Longer Farooq DO MG TABS every 6 Active hours as needed CIPROFLOXA Take one CIPROFLOX 06896195598 No Joseph W Active DELORES HCL (1) ACIN HCL Longer Farooq DO 500 MG tablet by Active TABS mouth twice a day ABILIFY 5 one p.o. ARIPIPRAZ 66293640063 No Joseph W Active MG TABS q. day OLE Longer Farooq DO Active HYDROCHLOR 2 tabs HYDROCHLO 84189760003 No Joseph W Active OTHIAZIDE every ROTHIAZID Longer Farooq DO 25 MG TABS morning E Active ABILIFY 2 1 po q hs ARIPIPRAZ 59786412448 No Joseph W Active MG TABS for major OLE Longer Farooq DO depressio Active n ADIPEX-P 1/2 tab PHENTERMI 95691148727 No Casey Active 37.5 MG po q am NE HCL Longer Leonarda CAPS for Active PA weight loss CIPRO 500 1 tablet CIPROFLOX 07820485871 No Casey Active MG TAB by mouth ACIN HCL Longer [place] twice Active PA daily NECON 35 1 po NORETHIND 24119938098 No Casey Active (28) 1-35 daily LINDA-ETH Longer Leonarda MG-MCG ESTRADIOL Active PA TABS TRAMADOL 1 po tid TRAMADOL 08151299783 No Casey Active HCL 50 MG with ES HCL Longer [place] TABS Tylenol Active PA FLUCONAZOL one p.o. FLUCONAZO 40937511995 No Casey Active E 100 MG q. day 2 LE Longer [place] TABS days Active PA POTASSIUM 1 capsule POTASSIUM 04084149406 No Casey Active CHLORIDE by mouth CHLORIDE Longer Leonarda CR 10 MEQ daily Active PA CPCR IMIPRAMINE Take 6 IMIPRAMIN 29006400611 Active Joseph W Active HCL 50 MG tablets E HCL Farooq DO TABS by mouth at bedtime DIFLUCAN 1 tablet FLUCONAZO 92997111564 No Joseph W Active 100 MG TAB by mouth LE Longer Farooq DO daily Active METOPROLOL 1/2 tab METOPROLO 37435005540 Active Joseph W Active TARTRATE po bid L Farooq DO 25 MG TABS TARTRATE VERAPAMIL 2 po bid VERAPAMIL 68884072321 Active Joseph W Active HCL CR 120 HCL Farooq DO MG TAB CR PERMETHRIN apply PERMETHRI 55344107635 No Joseph W Active 5 % CREA neck to N Longer Farooq DO toes Active tonight and then rinse off in morning. repeat at 7 days SEROQUEL one p.o. QUETIAPIN 08858210293 No Joseph W Active XR 50 MG q. E Longer Farooq DO [id number] evening FUMARATE Active TRAMADOL 1-2 TRAMADOL 24454677546 No Joseph W Active HCL 50 MG tablets HCL Longer Farooq DO TABS every 6-8 Active hours as needed for pain ALPRAZOLAM one p.o. ALPRAZOLA 27488811277 Active Joseph W Active 3 MG q.h.s. M Farooq DO [id number] ALPRAZOLAM Take 1 ALPRAZOLA 79343009069 No Joseph W Active XR tablet by M Longer Farooq DO [id number] mouth at [id number] Active bedtime DIFLUCAN 1 tablet FLUCONAZO 32045256522 No Joseph W Active 100 MG TAB by mouth LE Longer Farooq DO daily Active AMBIEN 10 1 tab by ZOLPIDEM 57339582318 Active Joseph W Active MG TAB mouth at TARTRATE Farooq DO bedtime as needed for sleep DIFLUCAN 100 1 tablet DIFLUCAN 916124 FLUCONAZOLE Inactive MG TAB by mouth 100 MG TAB daily ALPRAZOLAM Take 1 ALPRAZOLAM ALPRAZOLAM Inactive XR [id number] tablet by XR [id number] mouth at [id number] bedtime TRAMADOL HCL 1-2 TRAMADOL 877927 TRAMADOL HCL Inactive 50 MG TABS tablets HCL 50 MG every 6-8 TABS hours as needed for pain SEROQUEL XR one p.o. SEROQUEL XR QUETIAPINE Inactive 50 MG q. evening 50 MG FUMARATE [id number] PERMETHRIN 5 apply neck PERMETHRIN 930046 PERMETHRIN Inactive % CREA to toes 5 % CREA tonight and then rinse off in morning. repeat at 7 days DIFLUCAN 100 1 tablet DIFLUCAN 288507 FLUCONAZOLE Inactive MG TAB by mouth 100 MG TAB daily POTASSIUM 1 capsule POTASSIUM POTASSIUM Inactive CHLORIDE CR by mouth CHLORIDE CR CHLORIDE 10 MEQ CPCR daily 10 MEQ CPCR FLUCONAZOLE one p.o. FLUCONAZOLE 910581 FLUCONAZOLE Inactive 100 MG TABS q. day 2 100 MG TABS days TRAMADOL HCL 1 po tid TRAMADOL 114169 TRAMADOL HCL Inactive 50 MG TABS with ES HCL 50 MG Tylenol TABS NECON 35 1 po daily NECON NORETHINDRONE- Inactive (28) 1-35 (28) 1-35 ETH ESTRADIOL MG-MCG TABS MG-MCG TABS CIPRO 500 MG 1 tablet CIPRO 500 040704 CIPROFLOXACIN Inactive TAB by mouth MG TAB HCL twice daily ADIPEX-P 1/2 tab po ADIPEX-P 309443 PHENTERMINE Inactive 37.5 MG CAPS q am for 37.5 MG HCL weight CAPS loss ABILIFY 2 MG 1 po q hs ABILIFY 2 420090 ARIPIPRAZOLE Inactive TABS for major MG TABS depression HYDROCHLOROT 2 tabs HYDROCHLORO 022400 HYDROCHLOROTHI Inactive HIAZIDE 25 every THIAZIDE 25 AZIDE MG TABS morning MG TABS ABILIFY 5 MG one p.o. ABILIFY 5 050304 ARIPIPRAZOLE Inactive TABS q. day MG TABS CIPROFLOXACI Take one CIPROFLOXAC 895153 CIPROFLOXACIN Inactive N HCL 500 MG (1) tablet IN HCL 500 HCL TABS by mouth MG TABS twice a day PROMETHAZINE 1 tab by PROMETHAZIN 666377 PROMETHAZINE Inactive HCL 25 MG mouth E HCL 25 MG HCL TABS every 6 TABS hours as needed PHENTERMINE 1 po q am PHENTERMINE 680800 PHENTERMINE Inactive HCL 37.5 MG for wt. HCL 37.5 MG HCL TABS loss TABS AMARYL 1 MG 1 tab AMARYL 1 MG 348284 GLIMEPIRIDE Inactive TABS twice TABS daily METFORMIN 1 tablet METFORMIN 030096 METFORMIN HCL Inactive HCL 500 MG by mouth HCL 500 MG TABS twice TABS daily SPIRONOLACTO 1 tablet SPIRONOLACT 430376 SPIRONOLACTONE Inactive NE 25 MG TAB by mouth ONE 25 MG daily TAB POTASSIUM 2 capsule POTASSIUM POTASSIUM Inactive CHLORIDE CR by mouth CHLORIDE CR CHLORIDE 10 MEQ CPCR daily 10 MEQ CPCR LISINOPRIL 1 tablet LISINOPRIL 898638 LISINOPRIL Inactive 20 MG TABS by mouth 20 MG TABS daily DIFLUCAN 100 1 tablet DIFLUCAN 227134 FLUCONAZOLE Inactive MG TABS by mouth 100 MG TABS every other day for 2 doses DIFLUCAN 100 1 tablet DIFLUCAN 494589 FLUCONAZOLE Inactive MG TAB by mouth 100 MG TAB daily x 3 days PREDNISONE 2 tablets PREDNISONE 783157 PREDNISONE Inactive 20 MG TAB today, 20 MG TAB then 1 tablet days 2-4 VYVANSE 20 1 tablet VYVANSE 20 LISDEXAMFETAMI Inactive MG ORAL CAPS daily for MG ORAL NE DIMESYLATE binge CAPS eating disorder TRAMADOL HCL 1/2 po tid TRAMADOL 645134 TRAMADOL HCL Inactive 50 MG TABS with ES HCL 50 MG Tylenol TABS prn pain AMOXICILLIN 2 po BID x AMOXICILLIN 169370 AMOXICILLIN Inactive 500 MG CAPS 10 days 500 MG CAPS PREDNISONE 2 tabs PREDNISONE 691828 PREDNISONE Inactive 20 MG TAB daily for [...] Panel - Chemistry sodium, serum 137 mmol/L 895-839 3963/08/29 potassium, serum 4.1 mmol/L 3.5-5.2 chloride, serum 100 mmol/L 98-107 carbon dioxide, venous blood 31.1 mmol/L 21.0-32.0 blood glucose 138 mg/dL 65-110 calcium, serum 9.2 mg/dL 8.5-10.1 urea nitrogen, blood 9 mg/dL 7-18 creatinine, serum 0.80 mg/dL 0.60-1.30 Lab Report: CBC, Comp. Metabolic Panel, HGBA1C - Chemistry sodium, serum 140 mmol/L 484-497 0575/04/13 potassium, serum 3.9 mmol/L 3.5-5.2 chloride, serum [...] 219 10^3/MM^3 10*3/mm3 142-424 Lab Report: Chlamydia/GC APTIMA/[id number] - Lab chlamydia DNA probe NOT DETECTED NOT DETECTED Lab Report: Chlamydia/GC APTIMA/[id number] - Microbiology Neisseria gonorrhoeae DNA probe NOT [...] mg/g mg/g{creat} 0-29 sodium, serum 140 mmol/L 980-497 5189/07/21 potassium, serum 3.9 mmol/L 3.5-5.2 chloride, serum [...] 142-424 Encounters Code Encounter Date Provider Facility CPT-92416 Level 3 Est. Patient Joseph Edwin [facility] 14:42:12 CDT -[facility] CPT-66286 Level 3 Est. Patient [facility] 22:18:20 CDT -[facility] CPT-42946 Level 3 Est. Patient [facility] 16:46:04 CDT -[facility] CPT-38467 Level 3 Est. Patient [facility] 15:39:53 CDT -[facility] CPT-58959 Level 3 Est. Patient Maite Sanchez MD PhD [facility] 13:33:34 CDT -[facility] CPT-93889 Level 3 Est. Patient [facility] 11:37:08 CDT -[facility] CPT-99763 Level 3 Est. Patient [facility] 17:13:29 [employer] -[facility] CPT-47502 Level 3 Est. Patient [facility] 18:42:44 CDT CPT-40857 Level 3 Est. Patient [facility] 16:25:39 CDT CPT-42623 Level 3 Est. Patient Casey ARCHIBALD [facility] 09:52:45 CDT -[facility] CPT-69908 Level 3 Est. Patient Joseph Pineda [facility] 11:03:29 [employer] -[facility] CPT-81683 Level 3 Est. Patient Joseph Pineda [facility] 11:03:08 [employer] -[facility] CPT-79177 Level 3 Est. Patient Joseph Pineda [facility] 14:33:31 CDT -[facility] CPT-05506 Level 3 Est. Patient Joseph Pineda [facility] 17:05:02 [employer] -[facility] CPT-90226 Level 3 Est. Patient Joseph Pineda [facility] 17:48:06 [employer] -[facility] CPT-08708 Level 3 Est. Patient Joseph Edwin [facility] 14:59:22 [employer] -[facility] CPT-93931 Level 3 Est. Patient Cheyenne Edwin [facility] - 21:45:56 [employer] [place] [facility] CPT-39491 Level 3 Est. Patient Joseph Edwin [facility] 21:29:50 CDT -[facility] CPT-52538 Level 3 Est. Patient [facility] 12:41:09 CDT -[facility] Procedures Code Procedure Name Date Entry Date Standard Description CPT-OV Office Visit 17:39:05 CDT CPT-OV Office Visit 15:19:50 CDT CPT-57001 Sono transvag pelvis non OB uterus ovaries cervix 18:04:34 CDT CPT-47724 Venipuncture Draw Fee 08:55:49 [employer]
--- OUTSIDE RECORDS SUMMARY | 2016-11-20 14:04 | External Medical Summary | Clinical Summary ---
:1965 Author Organization [facility] Address [address] [address] Phone Allergies, Adverse Reactions, Alerts Allergy Name Reaction Description Start Date Severity Status Provider VERSED States jsut about Critical Active Gloria Saavedra SWATCH PASTER killed her NKDA Critical Active Indigo Yokum BUSINESS ASSISTANT NKDA Critical No Longer Indigo Yokum BUSINESS ASSISTANT Active NKDA Critical Inactive Adrianna Elder [...] Resolved Indigo Other malaise 05/24 07/02 Yokum BUSINESS ASSISTANT and fatigue SLEEP APNEA, 327.23 Active Joseph Pineda Obstructive OBSTRUCTIVE, 06/27 06/27 Farooq DO sleep apnea MILD (adult) (pediatric) OVERWEIGHT 278.02 Inactive Joseph Pineda Overweight 06/28 06/28 Farooq DO Obesity 278.00 Active Indigo Obesity, 06/28 10/18 Yokum BUSINESS ASSISTANT unspecified OTH GENERAL V70.3 Resolved Maite Gutierrez Other general MEDICAL Laura ONEAL medical EXAMINATION PhD examination for ADMIN administrative PURPOSES purposes OTHER 790.29 Resolved Maite C Other abnormal ABNORMAL 05/20 Laura ONEAL glucose GLUCOSE PhD ACUTE 466.0 Resolved Maite Gutierrez Acute bronchitis BRONCHITIS 09/02 Laura ONEAL PhD DEPENDENT 782.3 Resolved Indigo Edema EDEMA, LEGS, 10/29 10/18 Yokum BUSINESS ASSISTANT BILATERAL HYPOKALEMIA, 276.8 Resolved Indigo Hypopotassemia MILD 10/29 07/02 Yokum BUSINESS ASSISTANT Diabetes, 250.00 Inactive Joseph Pineda Diabetes Type 2 06/27 06/27 Farooq DO mellitus without mention of complication, type II or unspecified type, not stated as uncontrolled Diabetes 250.02 Resolved Indigo Diabetes mellitus, 06/27 10/18 Yokum BUSINESS ASSISTANT mellitus without type II, mention of [...] Resolved Indigo Routine gynecological 12/14 07/02 Yokum BUSINESS ASSISTANT gynecological examination examination Postmenopausa 627.1 Resolved Indigo Postmenopausal l bleeding 12/14 07/02 Yokum BUSINESS ASSISTANT bleeding Screening for V76.51 Resolved Indigo Screening for malignant 12/26 07/02 Yokum BUSINESS ASSISTANT malignant neoplasms of neoplasms of colon colon Insomnia, 307.42 Active Indigo 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 BUSINESS ASSISTANT disorder of initiating or maintaining sleep Establish V68.89 Resolved Indigo Encounters for care or get 01/16 07/02 Yokum BUSINESS ASSISTANT other specified acquainted administrative visit purpose Weakness, 342.90 Resolved Indigo Hemiplegia, left side of 06/20 10/18 Yokum BUSINESS ASSISTANT unspecified, body affecting unspecified side TIA 435.9 Active Indigo Unspecified 06/20 07/02 Yokum BUSINESS ASSISTANT transient cerebral ischemia Knee pain, 719.46 Active Indigo Pain in joint bilateral 06/20 10/18 Yokum BUSINESS ASSISTANT involving lower leg Bronchitis 490 Resolved Indigo Bronchitis, not 07/23 10/18 Yokum BUSINESS ASSISTANT specified as acute or chronic Diabetes 357.2 Active Maliheh Polyneuropathy mellitus, 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 y Knee pain, 719.46 Active Indigo Pain in joint right 06/20 10/18 Yokum BUSINESS ASSISTANT involving lower leg Jesi 112.3 Active Indigo Candidiasis of intertrigo 10/09 10/18 Yokum BUSINESS ASSISTANT skin and nails Hyperlipidemi 272.4 Active Anen Other and a 12/24 12/24 Neil unspecified RMA hyperlipidemia Incontinence, 788.33 Active Indigo Mixed mixed, 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 BUSINESS ASSISTANT incontinence urge/stress (female) (male) Female stress 625.6 Active Yury Monaco Stress incontinence 01/03 01/03 Cy patel MD female Vaginal odor 623.8 Active Gloria Other specified 05/28 05/28 Naff SWATCH PASTER noninflammatory disorders of vagina Urinary tract 599.0 Active Indigo Urinary tract infection 05/28 05/28 Yokum BUSINESS ASSISTANT infection, site not specified ABNORMAL VAGINAL ICD-626.9 Inactive Maite Sanchez BLEEDING PhD SCABIES ICD-133.0 Inactive Maite Sanchez PhD FATIGUE ICD-780.79 Inactive Indigo Yokum BUSINESS ASSISTANT OTH GENERAL ICD-V70.3 Inactive Maite Sanchez MEDICAL MD PhD EXAMINATION ADMIN PURPOSES OTHER ABNORMAL ICD-790.29 Inactive Maite Sanchez GLUCOSE PhD ACUTE BRONCHITIS ICD-466.0 Inactive Maite Sanchez PhD DEPENDENT EDEMA, ICD-782.3 Inactive Indigo Yokum LEGS, BILATERAL BUSINESS ASSISTANT HYPOKALEMIA, MILD ICD-276.8 Inactive Indigo Yokum BUSINESS ASSISTANT Diabetes mellitus, ICD-250.02 Inactive Indigo Yokum type II, BUSINESS ASSISTANT uncontrolled Sinusitis, ICD-461.1 Inactive Ismael Coyne frontal, acute Amandeep ONEAL Laryngitis, acute ICD-464.00 Inactive Ismael Coyne Amandeep ONEAL Routine ICD-V72.31 Inactive Indigo Yokum gynecological BUSINESS ASSISTANT examination Postmenopausal ICD-627.1 Inactive Indigo Yokum 2015 bleeding BUSINESS ASSISTANT Screening for ICD-V76.51 Inactive Indigo Yokum 2015 malignant BUSINESS ASSISTANT neoplasms of colon Establish care or ICD-V68.89 Inactive Indigo Yokum get acquainted BUSINESS ASSISTANT visit Weakness, left ICD-342.90 Inactive Indigo Yokum side of body BUSINESS ASSISTANT Bronchitis ICD-490 Inactive Indigo Yokum BUSINESS ASSISTANT Medication List Medication Instructions Start Stop Generic NDC Status Provider Patient Date Date Name Instruction VESGARETHRE 5 1 tablet SOLIFENACIN 16168683873 Active J Carlos Enrique Active MG TABS daily SUCCINATE Cy ONEAL CIPRO 250 MG 1 tablet 2 CIPROFLOXACIN 00916329978 No Indigo Active TAB by mouth 0 HCL Longer Yokum twice 1 Active BUSINESS ASSISTANT daily 7 / 0 1 7 METFORMIN 2 tablets 2 METFORMIN HCL 89302163057 No Indigo Active HCL 500 MG by mouth 0 Longer Yokum TB24 twice 1 Active BUSINESS ASSISTANT daily 2 AMARYL 1 MG 1 tablet 2 GLIMEPIRIDE 09491079956 No Indigo Active ORAL TABS orally 0 Longer Yokum twice 1 Active BUSINESS ASSISTANT daily 2 NYSTATIN apply to NYSTATIN 05102715224 Active Indigo Active 032246 rash TID Yokum UNIT/GM CREA PRN BUSINESS ASSISTANT TROKENDI XR 2 tab TOPIRAMATE 87851544346 Active Maliheh Active 100 MG ORAL daily Ziglari [id number] NEUROLOGY TECHNOLOGIST METOPROLOL 1 tab po METOPROLOL 47512411264 Active Indigo Active TARTRATE 25 bid TARTRATE Yokum MG TABS BUSINESS ASSISTANT AZITHROMYCIN 2 po qd x 2 AZITHROMYCIN 71697916110 No Jillina Active 250 MG TABS 1 day, 0 Longer Frazell then 1 po 1 Active BUSINESS ASSISTANT qd x 4 6 days / 0 3 / 2 6 PREDNISONE 2 pills 2 PREDNISONE 63712879410 No Jillina Active 20 MG TAB daily x 4 0 Longer Frazell days 1 Active BUSINESS ASSISTANT 6 / 0 3 / 2 5 PIOGLITAZONE take one a PIOGLITAZONE 02723731852 Active Maliheh Active HCL 30 MG day HCL Ziglari ORAL TABS NEUROLOGY TECHNOLOGIST JANUVIA 100 1 tablet 2 SITAGLIPTIN 50213985780 No Indigo Active MG TABS by mouth 0 PHOSPHATE Longer Yokum daily 1 Active BUSINESS ASSISTANT 6 / 0 2 / 1 6 ATORVASTATIN 1 pill by ATORVASTATIN 28780672723 Active Indigo Active CALCIUM 10 mouth CALCIUM Yokum MG TABS nightly, BUSINESS ASSISTANT for cholestero l ASPIRIN 81 1 po qd ASPIRIN 39486148483 Active Indigo Active MG ORAL TABS Yokum BUSINESS ASSISTANT NITROFURANTO One 2 NITROFURANTOIN 44180663555 No Indigo Active IN MONOHYD capsule 0 MONOHYD MACRO Longer Yokum MACRO 100 MG BID for 1 Active BUSINESS ASSISTANT CAPS UTI 6 / 0 2 / 3 TRAMADOL HCL 1/2 po tid 2 TRAMADOL HCL 74536749727 No Jillina Active 50 MG TABS with ES 0 Longer Frazell Tylenol 1 Active BUSINESS ASSISTANT prn pain 5 / 0 2 VYVANSE 20 1 tablet 2 LISDEXAMFETAMIN 47067269232 No Jillina Active MG ORAL CAPS daily for 0 E DIMESYLATE Longer Frazell binge 1 Active BUSINESS ASSISTANT eating 5 disorder / 0 2 LASIX 20 MG 2 tablet FUROSEMIDE 88116989103 Active Indigo Active TAB by mouth Yokum daily BUSINESS ASSISTANT CELEBREX 200 1 tablet CELECOXIB 20235036474 Active Indigo Active MG CAPS by mouth Yokum daily with BUSINESS ASSISTANT meals PREDNISONE 2 tablets 2 PREDNISONE 29851854811 No Joseph W Active 20 MG TAB today, 0 Longer Farooq DO then 1 1 Active tablet 5 days 2-4 / 0 4 3 DIFLUCAN 100 1 tablet 2 FLUCONAZOLE 31710060982 No Joseph W Active MG TAB by mouth 0 Longer Farooq DO daily x 3 1 Active days 5 / 0 4 / 1 3 DIFLUCAN 100 1 tablet 2 FLUCONAZOLE 97101124574 No Joseph W Active MG TABS by mouth 0 Longer Farooq DO every 1 Active other day 5 for 2 / doses 0 1 / 2 3 ZOFRAN 4 MG 1 po q6hr ONDANSETRON HCL 84169252822 Active Joseph W Active TABS PRN Nausea Farooq DO PREDNISONE 2 tabs 2 PREDNISONE 66027190563 No Joseph W Active 20 MG TAB daily for 0 Longer Farooq DO 3 days, 1 1 Active tab daily 4 for 3 / days, 1/2 1 tab daily 0 for 2 days / 2 5 AMOXICILLIN 2 po BID x 2 AMOXICILLIN 97787566589 No Maite C Active 500 MG CAPS 10 days 0 Longer Madril MD 1 Active PhD 4 0 / 2 0 LISINOPRIL 1 tablet 2 LISINOPRIL 35141547863 No Maite Gutierrez Active 20 MG TABS by mouth 0 Longer Laura ONEAL daily 1 Active PhD 4 0 / 1 0 POTASSIUM 2 capsule 2 POTASSIUM 60709851024 No Joseph W Active CHLORIDE CR by mouth 0 CHLORIDE Longer Farooq DO 10 MEQ CPCR daily 1 Active 4 0 8 / 2 9 SPIRONOLACTO 1 tablet 2 SPIRONOLACTONE 67164617951 No Joseph W Active NE 25 MG TAB by mouth 0 Longer Farooq DO daily 1 Active 4 0 8 / 2 9 METFORMIN 1 tablet 2 METFORMIN HCL 65013554040 No Joseph W Active HCL 500 MG by mouth 0 Longer Farooq DO TABS twice 1 Active daily 4 8 / 2 9 AMARYL 1 MG 1 tab 2 GLIMEPIRIDE 71467829559 No Joseph W Active TABS twice 0 Longer Farooq DO daily 1 Active 4 / 0 8 2 9 PHENTERMINE 1 po q am 2 PHENTERMINE HCL 75549907385 No Joseph W Active HCL 37.5 MG for wt. 0 Longer Farooq DO TABS loss 1 Active 3 / 2 / 2 3 PROMETHAZINE 1 tab by 2 PROMETHAZINE 84469950228 No Joseph W Active HCL 25 MG mouth 0 HCL Longer Farooq DO TABS every 6 1 Active hours as 3 needed / 0 9 / 0 9 CIPROFLOXACI Take one 2 CIPROFLOXACIN 69924947412 No Joseph W Active N HCL 500 MG (1) tablet 0 HCL Longer Farooq DO TABS by mouth 1 Active twice a 3 day / 0 9 / 0 9 ABILIFY 5 MG one p.o. 2 ARIPIPRAZOLE 80064610889 No Joseph W Active TABS q. day 0 Longer Farooq DO 1 Active 3 / 0 9 / 0 9 HYDROCHLOROT 2 tabs 2 HYDROCHLOROTHIA 79363039004 No Joseph W Active HIAZIDE 25 every 0 ZIDE Longer Farooq DO MG TABS morning 1 Active 3 / 0 6 / 2 7 ABILIFY 2 MG 1 po q hs 2 ARIPIPRAZOLE 82410094681 No Joseph W Active TABS for major 0 Longer [facility] depression 1 Active 3 / 0 5 / 0 7 ADIPEX-P 1/2 tab po 2 PHENTERMINE HCL 60860417999 No Casey Active 37.5 MG CAPS q am for 0 Longer [facility] weight 1 Active loss 3 / 0 5 / 0 1 CIPRO 500 MG 1 tablet 2 CIPROFLOXACIN 40131139836 No Casey Active TAB by mouth 0 HCL Longer [facility] twice 1 Active daily 3 / 0 5 / 0 1 NECON 1 po daily 2 NORETHINDRONE-E 56116824792 No Casey Active () 1- 0 ESTRADIOL Longer [facility] MG-MCG TABS 1 Active 3 / 0 5 / 0 1 TRAMADOL HCL 1 po tid 2 TRAMADOL HCL 60751212431 No Casey Active 50 MG TABS with ES 0 Longer [facility] Tylenol 1 Active 3 / 0 5 / 0 1 FLUCONAZOLE one p.o. 2 FLUCONAZOLE 93566916266 No Casey Active 100 MG TABS q. day 2 0 Longer [facility] days 1 Active 3 / 0 5 / 0 1 POTASSIUM 1 capsule 2 POTASSIUM 97572826657 No Casey Active CHLORIDE CR by mouth 0 CHLORIDE Longer [facility] 10 MEQ CPCR daily 1 Active 3 / 0 5 / 0 1 IMIPRAMINE Take 6 IMIPRAMINE HCL 14607870678 Active Indigo Active HCL 50 MG tablets by Yokum TABS mouth at BUSINESS ASSISTANT bedtime DIFLUCAN 100 1 tablet 2 FLUCONAZOLE 69449774228 No Joseph W Active MG TAB by mouth 0 Longer [facility] daily 1 Active 2 / 0 2 / 2 4 VERAPAMIL 2 po bid VERAPAMIL HCL 44283984664 Active Indigo Active HCL CR 120 Yokum MG TAB CR BUSINESS ASSISTANT PERMETHRIN 5 apply neck 2 PERMETHRIN 61539521610 No Joseph W Active % CREA to toes 0 Longer [facility] tonight 1 Active and then 2 rinse off / in 0 morning. 1 repeat at / 7 days 2 0 SEROQUEL XR one p.o. 2 QUETIAPINE 84029786461 No Joseph W Active 50 MG q. evening 0 FUMARATE Longer Farooq DO [id number] 1 Active 2 / 0 1 / 2 0 TRAMADOL HCL 1-2 2 TRAMADOL HCL 31862167716 No Joseph W Active 50 MG TABS tablets 0 Longer Farooq DO every 6-8 1 Active hours as 2 needed for / pain 0 1 / 2 0 ALPRAZOLAM 3 one p.o. ALPRAZOLAM 09019874074 Active Indigo Active MG [id number] q.h.s. Yokum BUSINESS ASSISTANT ALPRAZOLAM Take 1 2 ALPRAZOLAM 49562662928 No Joseph W Active XR [id number] tablet by 0 [id number] Longer Farooq DO mouth at 1 Active bedtime 1 / 9 DIFLUCAN 100 1 tablet 2 FLUCONAZOLE 66400934583 No Joseph W Active MG TAB by mouth 0 Longer Farooq DO daily 1 Active 0 / 0 6 AMBIEN 10 MG 1 tab by ZOLPIDEM 93556595280 Active Indigo Active TAB mouth at TARTRATE Yokum bedtime as BUSINESS ASSISTANT needed for sleep DIFLUCAN 100 1 tablet DIFLUCAN 737452 FLUCONAZOLE Inactive MG TAB by mouth 100 MG TAB daily ALPRAZOLAM Take 1 ALPRAZOLAM ALPRAZOLAM Inactive XR [id number] tablet by XR [id number] mouth at [id number] bedtime TRAMADOL HCL 1-2 TRAMADOL 329221 TRAMADOL HCL Inactive 50 MG TABS tablets HCL 50 MG every 6-8 TABS hours as needed for pain SEROQUEL XR one p.o. SEROQUEL XR QUETIAPINE Inactive 50 MG q. 50 MG FUMARATE [id number] evening [id number] PERMETHRIN 5 apply PERMETHRIN 246492 PERMETHRIN Inactive % CREA neck to 5 % CREA toes tonight and then rinse off in morning. repeat at 7 days DIFLUCAN 100 1 tablet DIFLUCAN 517657 FLUCONAZOLE Inactive MG TAB by mouth 100 MG TAB daily POTASSIUM 1 capsule POTASSIUM POTASSIUM Inactive CHLORIDE CR by mouth CHLORIDE CR CHLORIDE 10 MEQ CPCR daily 10 MEQ CPCR FLUCONAZOLE one p.o. FLUCONAZOLE 283467 FLUCONAZOLE Inactive 100 MG TABS q. day 2 100 MG TABS days TRAMADOL HCL 1 po tid TRAMADOL 182690 TRAMADOL HCL Inactive 50 MG TABS with ES HCL 50 MG Tylenol TABS NECON 1 po NECON NORETHINDRONE- Inactive (28) 1-35 daily () - ETH ESTRADIOL MG-MCG TABS MG-MCG TABS CIPRO 500 MG 1 tablet CIPRO 500 731916 CIPROFLOXACIN Inactive TAB by mouth MG TAB HCL twice daily ADIPEX-P 1/2 tab ADIPEX-P 343540 PHENTERMINE Inactive 37.5 MG CAPS po q am 37.5 MG HCL for CAPS weight loss ABILIFY 2 MG 1 po q hs ABILIFY 2 193008 ARIPIPRAZOLE Inactive TABS for major MG TABS depressio n HYDROCHLOROT 2 tabs HYDROCHLORO 577944 HYDROCHLOROTHI Inactive HIAZIDE 25 every THIAZIDE 25 AZIDE MG TABS morning MG TABS ABILIFY 5 MG one p.o. ABILIFY 5 569796 ARIPIPRAZOLE Inactive TABS q. day MG TABS CIPROFLOXACI Take one CIPROFLOXAC 612738 CIPROFLOXACIN Inactive N HCL 500 MG (1) IN HCL 500 HCL TABS tablet by MG TABS mouth twice a day PROMETHAZINE 1 tab by PROMETHAZIN 391936 PROMETHAZINE Inactive HCL 25 MG mouth E HCL 25 MG HCL TABS every 6 TABS hours as needed PHENTERMINE 1 po q am PHENTERMINE 717049 PHENTERMINE Inactive HCL 37.5 MG for wt. HCL 37.5 MG HCL TABS loss TABS AMARYL 1 MG 1 tab AMARYL 1 MG 19910808 GLIMEPIRIDE Inactive TABS twice TABS daily METFORMIN 1 tablet METFORMIN 135457 METFORMIN HCL Inactive HCL 500 MG by mouth HCL 500 MG TABS twice TABS daily SPIRONOLACTO 1 tablet SPIRONOLACT 770519 SPIRONOLACTONE Inactive NE 25 MG TAB by mouth ONE 25 MG daily TAB POTASSIUM 2 capsule POTASSIUM POTASSIUM Inactive CHLORIDE CR by mouth CHLORIDE CR CHLORIDE 10 MEQ CPCR daily 10 MEQ CPCR LISINOPRIL 1 tablet LISINOPRIL 646685 LISINOPRIL Inactive 20 MG TABS by mouth 20 MG TABS daily DIFLUCAN 100 1 tablet DIFLUCAN 358372 FLUCONAZOLE Inactive MG TABS by mouth 100 MG TABS every other day for 2 doses DIFLUCAN 100 1 tablet DIFLUCAN 966864 FLUCONAZOLE Inactive MG TAB by mouth 100 MG TAB daily x 3 days PREDNISONE 2 tablets PREDNISONE 903976 PREDNISONE Inactive 20 MG TAB today, 20 MG TAB then 1 tablet days 2-4 VYVANSE 20 1 tablet VYVANSE 20 LISDEXAMFETAMI Inactive MG ORAL CAPS daily for MG ORAL NE DIMESYLATE binge CAPS eating disorder TRAMADOL HCL 1/2 po TRAMADOL 914356 TRAMADOL HCL Inactive 50 MG TABS tid [...] TB24 daily AMOXICILLIN 2 po BID AMOXICILLIN 354506 AMOXICILLIN Inactive 500 MG CAPS x 10 days 500 MG CAPS PREDNISONE 2 tabs PREDNISONE 479818 PREDNISONE Inactive 20 MG TAB daily for 20 MG TAB 3 days, 1 tab daily for 3 days, 1/2 tab daily for 2 days NITROFURANTO One NITROFURANT 1179999 NITROFURANTOIN Inactive IN MONOHYD capsule OIN MONOHYD MONOHYD MACRO MACRO 100 MG BID for MACRO 100 CAPS UTI MG CAPS PREDNISONE 2 pills PREDNISONE 768415 PREDNISONE Inactive 20 MG TAB daily x 4 20 MG TAB days AZITHROMYCIN 2 po qd x AZITHROMYCI 4628720 AZITHROMYCIN Inactive 250 MG TABS 1 day, N 250 MG then 1 po TABS qd x 4 days CIPRO 250 MG 1 tablet CIPRO 250 748611 CIPROFLOXACIN Inactive TAB by mouth MG TAB [...] HGBA1C - Chemistry sodium, serum 140 mmol/L 348-519 4875/06/03 potassium, serum 3.9 mmol/L 3.5-5.2 chloride, serum [...] 214 10^3/MM^3 10*3/mm3 142-424 Lab Report: Chlamydia/GC APTIMA/[id number] - Lab chlamydia DNA probe NOT DETECTED NOT DETECTED Lab Report: Chlamydia/GC APTIMA/[id number] - Microbiology Neisseria gonorrhoeae DNA probe NOT DETECTED NOT DETECTED Lab Report: Lipid Panel - Chemistry cholesterol, serum 157 mg/dL 370-385 9225/08/22 triglyceride, serum, fasting 215 mg/dL 30-200 HDL [...] mg/dL Encounters Code Encounter Date Provider Facility CPT-53738 Level 4 New Patient Yury Benoit MD [facility] 15:17:12 CDT CPT-44160 Level 3 Est. Patient [facility] - 13:37:46 CDT [facility] CPT-42086 Level 4 Est. Patient [facility] - 10:01:06 CDT [place] CPT-01832 Level 3 Est. Patient [facility] 08:58:07 CDT NEUROLOGY TECHNOLOGIST CPT-47208 Level 3 Est. Patient Faby Marino [facility] 14:40:56 CDT [facility] CPT-23418 Level 4 Est. Patient [facility] 17:29:53 COMPENSATION CONSULTING MANAGER [facility] CPT-83836 Level 4 Est. Patient [facility] 09:51:54 COMPENSATION CONSULTING MANAGER CPT-62713 Level 3 Est. Patient [facility] 18:59:38 CDT CPT-12565 Level 3 Est. Patient Joseph Edwin [facility] 14:42:12 CDT -[facility] CPT-18803 Level 3 Est. Patient Joseph Pineda [facility] 22:18:20 CDT -[facility] CPT-71839 Level 3 Est. Patient Joseph Pineda [facility] 16:46:04 CDT -[facility] CPT-46040 Level 3 Est. Patient Joseph Edwin [facility] 15:39:53 CDT -[facility] CPT-22450 Level 3 Est. Patient Maite Sanchez MD [facility] 13:33:34 CDT -[facility] CPT-13661 Level 3 Est. Patient Joseph Edwin [facility] 11:37:08 CDT -[facility] CPT-29927 Level 3 Est. Patient Mineral Edwin [facility] 17:13:29 COMPENSATION CONSULTING MANAGER -[facility] CPT-07739 Level 3 Est. Patient Joseph Edwin [facility] 18:42:44 CDT CPT-16930 Level 3 Est. Patient Mineral Edwin [facility] 16:25:39 CDT CPT-16219 Level 3 Est. Patient Casey Brower [facility] 09:52:45 CDT -[facility] CPT-47514 Level 3 Est. Patient Joseph Pineda [facility] 11:03:29 COMPENSATION CONSULTING MANAGER -[facility] CPT-02417 Level 3 Est. Patient Joseph Edwin [facility] 11:03:08 COMPENSATION CONSULTING MANAGER -[facility] CPT-81823 Level 3 Est. Patient Joseph Edwin [facility] 14:33:31 CDT -[facility] CPT-06882 Level 3 Est. Patient Joseph Edwin [facility] 17:05:02 COMPENSATION CONSULTING MANAGER -RHC CPT-85433 Level [address] [facility] 17:48:06 COMPENSATION CONSULTING MANAGER -RHC CPT-95824 Level 3 Est. Patient Joseph Trivedi [facility] 14:59:22 COMPENSATION CONSULTING MANAGER -C CPT-67120 Level 3 Est. Patient Joseph Trivedi [facility] - 21:45:56 COMPENSATION CONSULTING MANAGER [place] [facility] CPT-17491 Level 3 Est. Patient Joseph Trivedi [facility] 21:29:50 CDT -[facility] CPT-50306 Level 3 Est. Patient Joseph Trivedi [facility] 12:41:09 CDT -[facility] Procedures Code Procedure Name Date Entry Date Standard Description CPT-37639 Wet Mount - LAB USE ONLY 12:39:03 COMPENSATION CONSULTING MANAGER CPT-78260 Vaginal Culture - LAB USE ONLY 12:39:03 COMPENSATION CONSULTING MANAGER CPT-10611 Urine Culture - LAB USE ONLY 11:52:44 COMPENSATION CONSULTING MANAGER CPT-34106 UA w micro - LAB USE ONLY 11:52:44 COMPENSATION CONSULTING MANAGER CPT-94528 Postop F/U Visit 12:08:35 CDT CPT-10113 Postop F/U Visit 18:20:10 CDT CPT-A4351 Coloplast Female Cath 09:37:10 CDT CPT-36758 Urine Dip (Floor Use Only) 15:17:13 CDT CPT-88023 Dil F ureth int 15:17:13 CDT CPT-92997 Venipuncture Draw Fee 09:19:08 CDT CPT-20811 Lipid - LAB USE ONLY 09:19:07 CDT CPT-JTINJ Asp/Joint Injection 09:26:49 CDT CPT-54033 Chest 2V Frontal and Lat 14:47:43 CDT CPT-JTINJ Asp/Joint Injection 09:51:53 COMPENSATION CONSULTING MANAGER CPT-OV Office Visit 17:39:05 CDT CPT-OV Office Visit 15:19:50 CDT CPT-77041 Sono transvag pelvis non OB uterus ovaries cervix 18:04:34 CDT CPT-32135 Venipuncture Draw Fee 08:55:49 COMPENSATION CONSULTING MANAGER
--- OUTSIDE RECORDS SUMMARY | 2016-11-20 14:05 | External Medical Summary | Clinical Summary ---
:[address] [facility] [place] Address [address] [address] Phone Allergies, Adverse Reactions, Alerts Allergy Name Reaction Description Start Date Severity Status Provider NKDA Critical Active Indigomikayla Jordanum SHIRT BANDER NKDA Critical No Longer Indigo Yokum SHIRT BANDER Active NKDA Critical Inactive Adrianna Elder Conditions [...] Resolved Indigo Other malaise 05/24 07/02 Yokum SHIRT BANDER and fatigue SLEEP APNEA, 327.23 Active Joseph Pindea Obstructive OBSTRUCTIVE, 06/27 06/27 Afrooq DO sleep apnea MILD (adult) (pediatric) OVERWEIGHT 278.02 Inactive Joseph Pineda Overweight 06/28 06/28 Farooq DO Obesity 278.00 Active Indigo Obesity, 06/28 10/18 Yokum SHIRT BANDER unspecified OTH GENERAL V70.3 Resolved Maite Gutierrez Other general MEDICAL Laura ONEAL medical EXAMINATION PhD examination for ADMIN PURPOSES administrative purposes OTHER ABNORMAL 790.29 Resolved Maite C Other abnormal GLUCOSE 05/20 Laura ONEAL glucose PhD ACUTE 466.0 Resolved Maite C Acute BRONCHITIS 09/02 Laura ONEAL bronchitis PhD DEPENDENT 782.3 Resolved Indigo Edema EDEMA, LEGS, 10/29 10/18 Yokum SHIRT BANDER BILATERAL HYPOKALEMIA, 276.8 Resolved Indigo Hypopotassemia MILD 10/29 07/02 Youm SHIRT BANDER Diabetes, Type 250.00 Inactive Joseph Pineda Diabetes 2 06/27 06/27 Farooq DO mellitus without mention of complication, type II or unspecified type, not stated as uncontrolled Diabetes 250.02 Resolved Indigo Diabetes mellitus, type 06/27 SHIRT BANDER mellitus II, without mention uncontrolled of complication, [...] Resolved Indigo Routine gynecological 12/14 07/02 Yo SHIRT BANDER gynecological examination examination Postmenopausal 627.1 Resolved Indigo Postmenopausal bleeding 12/14 SHIRT BANDER bleeding Screening for V76.51 Resolved Indigo Screening for malignant 12/26 07/02 Yokum SHIRT BANDER malignant neoplasms of neoplasms of colon colon Insomnia, 307.42 Active Indigo 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 SHIRT BANDER disorder of initiating or maintaining sleep Establish care V68.89 Resolved Indigo Encounters for or get 01/16 07/02 Yo SHIRT BANDER other specified acquainted administrative visit purpose Weakness, left 342.90 Resolved Indigo Hemiplegia, side of body 06/20 10/18 Yokum SHIRT BANDER unspecified, affecting unspecified side TIA 435.9 Active Indigo Unspecified 06/20 07/02 Yokum SHIRT BANDER transient cerebral ischemia Knee pain, 719.46 Active Indigo Pain in joint bilateral 06/20 10/18 Yokum SHIRT BANDER involving lower leg Bronchitis 490 Resolved Indigo Bronchitis, not 07/23 10/18 Yokum SHIRT BANDER specified as acute or chronic Diabetes 357.2 Active Maliheh Polyneuropathy mellitus, 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BUSINESS SYSTEM CONSULTANT 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y Knee pain, 719.46 Active Indigo Pain in joint right 06/20 10/18 Yokum SHIRT BANDER involving lower leg Jesi 112.3 Active Indigo Candidiasis of intertrigo 10/09 10/18 Yokum SHIRT BANDER skin and nails Hyperlipidemia 272.4 Active Anne Other and 12/24 12/24 Neil unspecified RMA hyperlipidemia Incontinence, 788.33 Active Indigo Mixed mixed, 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 SHIRT BANDER incontinence urge/stress (female) (male) Female stress 625.6 Active Yury AnthonyCarlos Enrique Stress incontinence 01/03 01/03 Cy patel MD female ABNORMAL VAGINAL ICD-626.9 Inactive Maite Sanchez BLEEDING PhD SCABIES ICD-133.0 Inactive Maite Sanchez PhD FATIGUE ICD-780.79 Inactive Indigo Yokum SHIRT BANDER OTH GENERAL ICD-V70.3 Inactive Maite Sanchez MEDICAL PhD EXAMINATION ADMIN PURPOSES OTHER ABNORMAL ICD-790.29 Inactive Maite Sanchez GLUCOSE PhD ACUTE BRONCHITIS ICD-466.0 Inactive Maite Matt Sanchez PhD DEPENDENT EDEMA, ICD-782.3 Inactive Indigo Yokum LEGS, BILATERAL SHIRT BANDER HYPOKALEMIA, MILD ICD-276.8 Inactive Indigo Yokum SHIRT BANDER Diabetes mellitus, ICD-250.02 Inactive Indigo Yokum type II, SHIRT BANDER uncontrolled Sinusitis, ICD-461.1 Inactive Ismael Coyne frontal, acute Amandeep ONEAL Laryngitis, acute ICD-464.00 Inactive Ismael Coyne Amandeep ONEAL Routine ICD-V72.31 Inactive Indigo Yokum gynecological SHIRT BANDER examination Postmenopausal ICD-627.1 Inactive Indigo Yokum 2015 bleeding SHIRT BANDER Screening for ICD-V76.51 Inactive Indigo Yokum 2015 malignant SHIRT BANDER neoplasms of colon Establish care or ICD-V68.89 Inactive Indigo Yokum get acquainted SHIRT BANDER visit Weakness, left ICD-342.90 Inactive Indigo Yokum side of body SHIRT BANDER Bronchitis ICD-490 Inactive Indigo Yokum SHIRT BANDER Medication List Medication Instructions Start Stop Generic NDC Status Provider Patient Date Date Name Instruction METFORMIN 2 tablets METFORMIN 28725789395 No Indigo Active HCL 500 MG by mouth HCL Longer Yokum TB24 twice Active SHIRT BANDER daily AMARYL 1 MG 1 tablet GLIMEPIRID 42650130257 No Indigo Active ORAL TABS orally E Longer Yokum twice Active SHIRT BANDER daily NYSTATIN apply to NYSTATIN 09751722522 Active Indigo Active 954859 rash TID Yokum UNIT/GM PRN SHIRT BANDER CREA TROKENDI XR 2 tab TOPIRAMATE 89569474180 Active Malihe Active 100 MG ORAL daily h [id number] Ziglar i BUSINESS SYSTEM CONSULTANT METOPROLOL 1 tab po METOPROLOL 29102922701 Active Indigo Active TARTRATE 25 bid TARTRATE Yokum MG TABS SHIRT BANDER AZITHROMYCI 2 po qd x AZITHROMYC 55290660069 No Jillin Active N 250 MG 1 day, IN Longer a TABS then 1 po Active Frazel qd x 4 l SHIRT BANDER days PREDNISONE 2 pills PREDNISONE 57305225871 No Jillin Active 20 MG TAB daily x 4 Longer a days Active Frazel l SHIRT BANDER PIOGLITAZON take one PIOGLITAZO 92035060386 Active Malihe Active E HCL 30 MG a day NE HCL h ORAL TABS Ziglar i BUSINESS SYSTEM CONSULTANT JANUVIA 100 1 tablet SITAGLIPTI 21408246936 No Indigo Active MG TABS by mouth N Longer Yokum daily PHOSPHATE Active SHIRT BANDER ATORVASTATI 1 pill by ATORVASTAT 87580072519 Active Indigo Active N CALCIUM mouth IN CALCIUM Yokum 10 MG TABS nightly, SHIRT BANDER for cholester ol ASPIRIN 81 1 po qd ASPIRIN 70145573971 Active Indigo Active MG ORAL Yokum TABS SHIRT BANDER NITROFURANT One NITROFURAN 82865313656 No Indigo Active OIN MONOHYD capsule TOIN Longer Yokum MACRO 100 BID for MONOHYD Active SHIRT BANDER MG CAPS UTI MACRO TRAMADOL 1/2 po TRAMADOL 93613448224 No Jillin Active HCL 50 MG tid with HCL Longer a TABS ES Active Frazel Tylenol l SHIRT BANDER prn pain VYVANSE 20 1 tablet LISDEXAMFE 40026497972 No Jillin Active MG ORAL daily for TAMINE Longer a CAPS binge DIMESYLATE Active Frazel eating l SHIRT BANDER disorder LASIX 20 MG 2 tablet FUROSEMIDE 32685870439 Active Indigo Active TAB by mouth Yokum daily SHIRT BANDER CELEBREX 1 tablet CELECOXIB 31273135046 Active Indigo Active 200 MG CAPS by mouth Yokum daily SHIRT BANDER with meals PREDNISONE 2 tablets PREDNISONE 35159140926 No Joseph Active 20 MG TAB today, Longer W Farooq then 1 Active DO tablet days 2-4 DIFLUCAN 1 tablet FLUCONAZOL 12878277195 No Joseph Active 100 MG TAB by mouth E Longer W Farooq daily x 3 Active DO days DIFLUCAN 1 tablet FLUCONAZOL 80049907210 No Joseph Active 100 MG TABS by mouth E Longer W Farooq every Active DO other day for 2 doses ZOFRAN 4 MG 1 po q6hr ONDANSETRO 92021305065 Active Joseph Active TABS PRN N HCL W Farooq Nausea DO PREDNISONE 2 tabs PREDNISONE 07402156177 No Joseph Active 20 MG TAB daily for Longer W Farooq 3 days, 1 Active DO tab daily for 3 days, 1/2 tab daily for 2 days AMOXICILLIN 2 po BID AMOXICILLI 41693827289 No Maite C Active 500 MG CAPS x 10 days N Longer Madril Active PhD LISINOPRIL 1 tablet LISINOPRIL 00021130806 No Maite C Active 20 MG TABS by mouth Longer Madril daily Active PhD POTASSIUM 2 capsule POTASSIUM 05277308515 No Joseph Active CHLORIDE CR by mouth CHLORIDE Longer W Farooq 10 MEQ CPCR daily Active DO SPIRONOLACT 1 tablet SPIRONOLAC 45028539712 No Joseph Active ONE 25 MG by mouth TONE Longer W Farooq TAB daily Active DO METFORMIN 1 tablet METFORMIN 53659049218 No Joseph Active HCL 500 MG by mouth HCL Longer W Farooq TABS twice Active DO daily AMARYL 1 MG 1 tab GLIMEPIRID 20464616279 No Joseph Active TABS twice E Longer W Farooq daily Active DO PHENTERMINE 1 po q am PHENTERMIN 23056273404 No Joseph Active HCL 37.5 MG for wt. E HCL Longer W Farooq TABS loss Active DO PROMETHAZIN 1 tab by PROMETHAZI 54176339792 No Joseph Active E HCL 25 MG mouth NE HCL Longer W Farooq TABS every 6 Active DO hours as needed CIPROFLOXAC Take one CIPROFLOXA 50767337546 No Joseph Active IN HCL 500 (1) DELORES HCL Longer W Farooq MG TABS tablet by Active DO mouth twice a day ABILIFY 5 one p.o. ARIPIPRAZO 39363217488 No Joseph Active MG TABS q. day LE Longer W Farooq Active DO HYDROCHLORO 2 tabs HYDROCHLOR 32895526626 No Joseph Active THIAZIDE 25 every OTHIAZIDE Longer W Farooq MG TABS morning Active DO ABILIFY 2 1 po q hs ARIPIPRAZO 22487599076 No Joseph Active MG TABS for major LE Longer W Farooq depressio Active DO n ADIPEX-P 1/2 tab PHENTERMIN 05176695156 No Casey Active 37.5 MG po q am E HCL Longer Deep Water CAPS for Active PA weight loss CIPRO 500 1 tablet CIPROFLOXA 32620161128 No Casey Active MG TAB by mouth DELORES HCL Longer Leonarda twice Active PA daily NECON 1/35 1 po NORETHINDR 03500699003 No Casey Active (28) 1-35 daily ONE-ETH Longer Leonarda MG-MCG TABS ESTRADIOL Active PA TRAMADOL 1 po tid TRAMADOL 21951785349 No Casey Active HCL 50 MG with ES HCL Longer Leonarda TABS Tylenol Active PA FLUCONAZOLE one p.o. FLUCONAZOL 65684368122 No Casey Active 100 MG TABS q. day 2 E Longer Leonarda days Active PA POTASSIUM 1 capsule POTASSIUM 66832118669 No Casey Active CHLORIDE CR by mouth CHLORIDE Longer 10 MEQ CPCR daily Active PA IMIPRAMINE Take 6 IMIPRAMINE 37197648580 Active Indigo Active HCL 50 MG tablets HCL Yokum TABS by mouth SHIRT BANDER at bedtime DIFLUCAN 1 tablet FLUCONAZOL 16715729000 No Joseph Active 100 MG TAB by mouth E Longer W Farooq daily Active DO VERAPAMIL 2 po bid VERAPAMIL 42326297795 Active Indigo Active HCL CR 120 HCL Yokum MG TAB CR SHIRT BANDER PERMETHRIN apply PERMETHRIN 51812876429 No Joseph Active 5 % CREA neck to Longer W Farooq toes Active DO tonight and then rinse off in morning. repeat at 7 days SEROQUEL XR one p.o. QUETIAPINE 69111564487 No Joseph Active 50 MG q. FUMARATE Longer W Farooq [id number] evening Active DO TRAMADOL 1-2 TRAMADOL 48003293186 No Joseph Active HCL 50 MG tablets HCL Longer W Farooq TABS every 6-8 Active DO hours as needed for pain ALPRAZOLAM one p.o. ALPRAZOLAM 72014333976 Active Indigo Active 3 MG q.h.s. Yokum [id number] SHIRT BANDER ALPRAZOLAM Take 1 ALPRAZOLAM 11974502367 No Joseph Active XR tablet by [id number] Longer W Farooq [id number] mouth at Active DO bedtime DIFLUCAN 1 tablet FLUCONAZOL 76359209064 No Joseph Active 100 MG TAB by mouth E Longer W Farooq daily Active DO AMBIEN 10 1 tab by ZOLPIDEM 69939352559 Active Indigo Active MG TAB mouth at TARTRATE Yokum bedtime SHIRT BANDER as needed for sleep DIFLUCAN 100 1 tablet DIFLUCAN 328708 FLUCONAZOLE Inactive MG TAB by mouth 100 MG TAB daily ALPRAZOLAM Take 1 ALPRAZOLAM ALPRAZOLAM Inactive XR [id number] tablet by XR [id number] mouth at GC29I-TAB bedtime TRAMADOL HCL 1-2 TRAMADOL 458074 TRAMADOL HCL Inactive 50 MG TABS tablets HCL 50 MG every 6-8 TABS hours as needed for pain SEROQUEL XR one p.o. SEROQUEL XR QUETIAPINE Inactive 50 MG q. 50 MG FUMARATE [id number]-HPG evening [id number] PERMETHRIN 5 apply PERMETHRIN 746305 PERMETHRIN Inactive % CREA neck to 5 % CREA toes tonight and then rinse off in morning. repeat at 7 days DIFLUCAN 100 1 tablet DIFLUCAN 200905 FLUCONAZOLE Inactive MG TAB by mouth 100 MG TAB daily POTASSIUM 1 capsule POTASSIUM POTASSIUM Inactive CHLORIDE CR by mouth CHLORIDE CR CHLORIDE 10 MEQ CPCR daily 10 MEQ CPCR FLUCONAZOLE one p.o. FLUCONAZOLE 692444 FLUCONAZOLE Inactive 100 MG TABS q. day 2 100 MG TABS days TRAMADOL HCL 1 po tid TRAMADOL 732686 TRAMADOL HCL Inactive 50 MG TABS with ES HCL 50 MG Tylenol TABS NECON 1/35 1 po NECON 1/35 NORETHINDRONE- Inactive (28) 1-35 daily (28) 1-35 ETH ESTRADIOL MG-MCG TABS MG-MCG TABS CIPRO 500 MG 1 tablet CIPRO 500 788938 CIPROFLOXACIN Inactive TAB by mouth MG TAB HCL twice daily ADIPEX-P 1/2 tab ADIPEX-P 685570 PHENTERMINE Inactive 37.5 MG CAPS po q am 37.5 MG HCL for CAPS weight loss ABILIFY 2 MG 1 po q hs ABILIFY 2 850976 ARIPIPRAZOLE Inactive TABS for major MG TABS depressio n HYDROCHLOROT 2 tabs HYDROCHLORO 576373 HYDROCHLOROTHI Inactive HIAZIDE 25 every THIAZIDE 25 AZIDE MG TABS morning MG TABS ABILIFY 5 MG one p.o. ABILIFY 5 689151 ARIPIPRAZOLE Inactive TABS q. day MG TABS CIPROFLOXACI Take one CIPROFLOXAC 372056 CIPROFLOXACIN Inactive N HCL 500 MG (1) IN HCL 500 HCL TABS tablet by MG TABS mouth twice a day PROMETHAZINE 1 tab by PROMETHAZIN 725603 PROMETHAZINE Inactive HCL 25 MG mouth E HCL 25 MG HCL TABS every 6 TABS hours as needed PHENTERMINE 1 po q am PHENTERMINE 098503 PHENTERMINE Inactive HCL 37.5 MG for wt. HCL 37.5 MG HCL TABS loss TABS AMARYL 1 MG 1 tab AMARYL 1 MG 271891 GLIMEPIRIDE Inactive TABS twice TABS daily METFORMIN 1 tablet METFORMIN 286730 METFORMIN HCL Inactive HCL 500 MG by mouth HCL 500 MG TABS twice TABS daily SPIRONOLACTO 1 tablet SPIRONOLACT 231642 SPIRONOLACTONE Inactive NE 25 MG TAB by mouth ONE 25 MG daily TAB POTASSIUM 2 capsule POTASSIUM POTASSIUM Inactive CHLORIDE CR by mouth CHLORIDE CR CHLORIDE 10 MEQ CPCR daily 10 MEQ CPCR LISINOPRIL 1 tablet LISINOPRIL 140391 LISINOPRIL Inactive 20 MG TABS by mouth 20 MG TABS daily DIFLUCAN 100 1 tablet DIFLUCAN 19760111 FLUCONAZOLE Inactive MG TABS by mouth 100 MG TABS every other day for 2 doses DIFLUCAN 100 1 tablet DIFLUCAN 355123 FLUCONAZOLE Inactive MG TAB by mouth 100 MG TAB daily x 3 days PREDNISONE 2 tablets PREDNISONE 222013 PREDNISONE Inactive 20 MG TAB today, 20 MG TAB then 1 tablet days 2-4 VYVANSE 20 1 tablet VYVANSE 20 LISDEXAMFETAMI Inactive MG ORAL CAPS daily for MG ORAL NE DIMESYLATE binge CAPS eating disorder TRAMADOL HCL 1/2 po TRAMADOL 137074 TRAMADOL HCL Inactive 50 MG TABS tid with HCL 50 MG ES TABS Tylenol prn pain JANUVIA 100 1 tablet JANUVIA 100 SITAGLIPTIN Inactive MG TABS by mouth MG TABS PHOSPHATE daily AMARYL 1 MG 1 tablet AMARYL 1 MG 410642 GLIMEPIRIDE Inactive ORAL TABS orally ORAL TABS twice daily METFORMIN 2 tablets METFORMIN METFORMIN HCL Inactive HCL 500 MG by mouth HCL 500 MG TB24 twice TB24 daily AMOXICILLIN 2 po BID AMOXICILLIN 237562 AMOXICILLIN Inactive 500 MG CAPS x 10 days 500 MG CAPS PREDNISONE 2 tabs PREDNISONE 861293 PREDNISONE Inactive 20 MG TAB daily for 20 MG TAB 3 days, 1 tab daily for 3 days, 1/2 tab daily for 2 days NITROFURANTO One NITROFURANT 1582871 NITROFURANTOIN Inactive IN MONOHYD capsule OIN MONOHYD MONOHYD MACRO MACRO 100 MG BID for MACRO 100 CAPS UTI MG CAPS PREDNISONE 2 pills PREDNISONE 976796 PREDNISONE Inactive 20 MG TAB daily x 4 20 MG TAB days AZITHROMYCIN 2 po qd x AZITHROMYCI 1370893 AZITHROMYCIN Inactive 250 MG TABS 1 day, [...] HGBA1C - Chemistry sodium, serum 140 mmol/L 971-209 8384/06/03 potassium, serum 3.9 mmol/L 3.5-5.2 chloride, serum [...] Panel - Chemistry sodium, serum 136 mmol/L 775-992 5061/01/04 carbon dioxide, venous blood 27.0 mmol/L 21.0-32.0 potassium, serum 4.6 mmol/L 3.5-5.2 chloride, serum 98 mmol/L 98-107 blood glucose 174 mg/dL 65-110 urea nitrogen, blood 12 mg/dL 7-18 creatinine, serum 0.78 mg/dL 0.55-1.30 alanine aminotransferase (SGPT), serum 65 U/L 12-78 aspartate aminotransferase (SGOT), serum 34 U/L 15-37 calcium, serum 8.9 mg/dL 8.5-10.1 bilirubin, serum, total 0.40 mg/dL 0.00-1.00 cholesterol, serum 219 mg/dL 848-091 2616/01/04 triglyceride, serum, fasting 214 mg/dL 30-200 HDL cholesterol, serum 39 mg/dL 32-96 LDL cholesterol, serum 137 mg/dL 0-130 Lab Report: Lipid Panel - Chemistry cholesterol, serum 157 mg/dL 494-855 6658/08/22 triglyceride, serum, fasting 215 mg/dL 30-200 HDL [...] mg/dL Encounters Code Encounter Date Provider Facility CPT-83864 Level 4 New Patient Yury Benoit MD [facility] 15:17:12 CDT CPT-05233 Level 3 Est. Patient [facility] - 13:37:46 CDT [place] CPT-90570 Level 4 Est. Patient [facility] - 10:01:06 CDT [place] CPT-17574 Level 3 Est. Patient [facility] 08:58:07 CDT BUSINESS SYSTEM CONSULTANT CPT-19995 Level [address] [facility] 14:40:56 CDT [facility] CPT-67823 Level 4 Est. Patient [facility] 17:29:53 ECONOMIC RESEARCH ASSISTANT BUSINESS SYSTEM CONSULTANT CPT-09515 Level 4 Est. Patient [facility] 09:51:54 ECONOMIC RESEARCH ASSISTANT CPT-58340 Level 3 Est. Patient Indigo Sexton ALEJANDRO [facility] 18:59:38 CDT CPT-90468 Level 3 Est. Patient Joseph Edwin [facility] 14:42:12 CDT -[facility] CPT-29278 Level 3 Est. Patient Joseph Pineda [facility] 22:18:20 CDT -[facility] CPT-94044 Level 3 Est. Patient Joseph Edwin [facility] 16:46:04 CDT -[facility] CPT-45822 Level 3 Est. Patient Joseph Edwin [facility] 15:39:53 CDT -[facility] CPT-07319 Level 3 Est. Patient Maite Sanchez MD [facility] 13:33:34 CDT -[facility] CPT-14759 Level 3 Est. Patient [place] [facility] 11:37:08 CDT -[facility] CPT-93929 Level 3 Est. Patient Joseph Edwin [facility] 17:13:29 ECONOMIC RESEARCH ASSISTANT -[facility] CPT-78587 Level 3 Est. Patient [place] Edwin [facility] 18:42:44 CDT CPT-23069 Level 3 Est. Patient [place] Edwin [facility] 16:25:39 CDT CPT-69640 Level 3 Est. Patient Casey Brower [facility] 09:52:45 CDT -[facility] CPT-22643 Level 3 Est. Patient Joseph Edwin [facility] 11:03:29 ECONOMIC RESEARCH ASSISTANT -[facility] CPT-37960 Level 3 Est. Patient [place] Edwin [facility] 11:03:08 ECONOMIC RESEARCH ASSISTANT -[facility] CPT-00745 Level 3 Est. Patient [facility] 14:33:31 CDT -[facility] CPT-38722 Level 3 Est. Patient Joseph Edwin [facility] 17:05:02 ECONOMIC RESEARCH ASSISTANT -[facility] CPT-12796 Level 3 Est. Patient [facility] 17:48:06 ECONOMIC RESEARCH ASSISTANT -[facility] CPT-07581 Level 3 Est. Patient Joseph Pineda [facility] 14:59:22 ECONOMIC RESEARCH ASSISTANT -RHC CPT-91473 Level 3 Est. Patient Joseph Pineda [facility] - 21:45:56 ECONOMIC RESEARCH ASSISTANT [place] [facility] CPT-25853 Level 3 Est. Patient Joseph Pineda [facility] 21:29:50 CDT -[facility] CPT-18464 Level 3 Est. Patient Joseph Pineda [facility] 12:41:09 CDT -[facility] Procedures Code Procedure Name Date Entry Date Standard Description CPT-63878 Postop F/U Visit 12:08:35 CDT CPT-17156 Postop F/U Visit 18:20:10 CDT CPT-A4351 Coloplast Female Cath 09:37:10 CDT CPT-84222 Urine Dip (Floor Use Only) 15:17:13 CDT CPT-62280 Dil F ureth int 15:17:13 CDT CPT-53049 Venipuncture Draw Fee 09:19:08 CDT CPT-29722 Lipid - LAB USE ONLY 09:19:07 CDT CPT-JTINJ Asp/Joint Injection 09:26:49 CDT CPT-77576 Chest 2V Frontal and Lat 14:47:43 CDT CPT-JTINJ Asp/Joint Injection 09:51:53 ECONOMIC RESEARCH ASSISTANT CPT-OV Office Visit 17:39:05 CDT CPT-OV Office Visit 15:19:50 CDT CPT-23085 Sono transvag pelvis non OB uterus ovaries cervix 18:04:34 CDT CPT-26658 Venipuncture Draw Fee 08:55:49 ECONOMIC RESEARCH ASSISTANT
--- OUTSIDE RECORDS SUMMARY | 2016-11-20 14:05 | External Medical Summary | Clinical Summary ---
:1965 Author Organization [facility] [email or web address] Address [address] [address] Phone Allergies, Adverse Reactions, Alerts Allergy Name Reaction Description Start Date Severity Status Provider NKDA Critical Active Indigo Yonickieum [employer]ORAL DEPARTMENT SPECIALIST NKDA Critical No Longer Indigo Yokum FLORAL DEPARTMENT SPECIALIST Active NKDA Critical Inactive Adrianna Elder [...] Resolved Indigo Other malaise 05/24 07/02 Yokum FLORAL DEPARTMENT SPECIALIST and fatigue SLEEP APNEA, 327.23 Active Joseph Pineda Obstructive OBSTRUCTIVE, 06/27 06/27 Farooq DO sleep apnea MILD (adult) (pediatric) OVERWEIGHT 278.02 Inactive Joseph Pineda Overweight 06/28 06/28 Farooq DO Obesity 278.00 Active Indigo Obesity, 06/28 10/18 Yokum FLORAL DEPARTMENT SPECIALIST unspecified OTH GENERAL V70.3 Resolved Maite Gutierrez Other general MEDICAL Laura ONEAL medical EXAMINATION PhD examination for ADMIN PURPOSES administrative purposes OTHER ABNORMAL 790.29 Resolved Maite C Other abnormal GLUCOSE 05/20 Laura ONEAL glucose PhD ACUTE 466.0 Resolved Maite C Acute BRONCHITIS 09/02 Laura ONEAL bronchitis PhD DEPENDENT 782.3 Resolved Indigo Edema EDEMA, LEGS, 10/29 10/18 Yokum FLORAL DEPARTMENT SPECIALIST BILATERAL HYPOKALEMIA, 276.8 Resolved Indigo Hypopotassemia MILD 10/29 07/02 Youm FLORAL DEPARTMENT SPECIALIST Diabetes, Type 250.00 Inactive Joseph Pineda Diabetes 2 06/27 06/27 Farooq DO mellitus without mention of complication, type II or unspecified type, not stated as uncontrolled Diabetes 250.02 Resolved Indigo Diabetes mellitus, type 06/27 FLORAL DEPARTMENT SPECIALIST mellitus II, without mention uncontrolled of complication, [...] Resolved Indigo Routine gynecological 12/14 07/02 Yo FLORAL DEPARTMENT SPECIALIST gynecological examination examination Postmenopausal 627.1 Resolved Indigo Postmenopausal bleeding 12/14 FLORAL DEPARTMENT SPECIALIST bleeding Screening for V76.51 Resolved Indigo Screening for malignant 12/26 07/02 Yokum FLORAL DEPARTMENT SPECIALIST malignant neoplasms of neoplasms of colon colon Insomnia, 307.42 Active Indigo 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 FLORAL DEPARTMENT SPECIALIST disorder of initiating or maintaining sleep Establish care V68.89 Resolved Indigo Encounters for or get 01/16 07/02 Yo FLORAL DEPARTMENT SPECIALIST other specified acquainted administrative visit purpose Weakness, left 342.90 Resolved Indigo Hemiplegia, side of body 06/20 10/18 Yokum FLORAL DEPARTMENT SPECIALIST unspecified, affecting unspecified side TIA 435.9 Active Indigo Unspecified 06/20 07/02 Yokum FLORAL DEPARTMENT SPECIALIST transient cerebral ischemia Knee pain, 719.46 Active Indigo Pain in joint bilateral 06/20 10/18 Yokum FLORAL DEPARTMENT SPECIALIST involving lower leg Bronchitis 490 Resolved Indigo Bronchitis, not 07/23 10/18 Yokum FLORAL DEPARTMENT SPECIALIST specified as acute or chronic Diabetes 357.2 Active Maliheh Polyneuropathy mellitus, 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[employer] 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y Knee pain, 719.46 Active Indigo Pain in joint right 06/20 10/18 Yokum FLORAL DEPARTMENT SPECIALIST involving lower leg Jesi 112.3 Active Indigo Candidiasis of intertrigo 10/09 10/18 Yokum FLORAL DEPARTMENT SPECIALIST skin and nails Hyperlipidemia 272.4 Active Anne Other and 12/24 12/24 Neil unspecified RMA hyperlipidemia Incontinence, 788.33 Active Indigo Mixed mixed, 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 FLORAL DEPARTMENT SPECIALIST incontinence urge/stress (female) (male) Female stress 625.6 Active Yury AnthonyCarlos Enrique Stress incontinence 01/03 01/03 Cy patel MD female ABNORMAL VAGINAL ICD-626.9 Inactive Maite Sanchez BLEEDING PhD SCABIES ICD-133.0 Inactive Maite Sanchez PhD FATIGUE ICD-780.79 Inactive Indigo Yokum FLORAL DEPARTMENT SPECIALIST OTH GENERAL ICD-V70.3 Inactive Maite Sanchez MEDICAL PhD EXAMINATION ADMIN PURPOSES OTHER ABNORMAL ICD-790.29 Inactive Maite Sanchez GLUCOSE PhD ACUTE BRONCHITIS ICD-466.0 Inactive Maite Matt Sanchez PhD DEPENDENT EDEMA, ICD-782.3 Inactive Indigo Yokum LEGS, BILATERAL FLORAL DEPARTMENT SPECIALIST HYPOKALEMIA, MILD ICD-276.8 Inactive Indigo Yokum FLORAL DEPARTMENT SPECIALIST Diabetes mellitus, ICD-250.02 Inactive Indigo Yokum type II, FLORAL DEPARTMENT SPECIALIST uncontrolled Sinusitis, ICD-461.1 Inactive Ismael Coyne frontal, acute Amandeep ONEAL Laryngitis, acute ICD-464.00 Inactive Ismael Coyne Amandeep ONEAL Routine ICD-V72.31 Inactive Indigo Yokum gynecological FLORAL DEPARTMENT SPECIALIST examination Postmenopausal ICD-627.1 Inactive Indigo Yokum 2015 bleeding FLORAL DEPARTMENT SPECIALIST Screening for ICD-V76.51 Inactive Indigo Yokum 2015 malignant FLORAL DEPARTMENT SPECIALIST neoplasms of colon Establish care or ICD-V68.89 Inactive Indigo Yokum get acquainted FLORAL DEPARTMENT SPECIALIST visit Weakness, left ICD-342.90 Inactive Indigo Yokum side of body FLORAL DEPARTMENT SPECIALIST Bronchitis ICD-490 Inactive Indigo Yokum FLORAL DEPARTMENT SPECIALIST Medication List Medication Instructions Start Stop Generic NDC Status Provider Patient Date Date Name Instruction METFORMIN 2 tablets METFORMIN 15740880664 No Indigo Active HCL 500 MG by mouth HCL Longer Yokum TB24 twice Active FLORAL DEPARTMENT SPECIALIST daily AMARYL 1 MG 1 tablet GLIMEPIRID 52034579508 No Indigo Active ORAL TABS orally E Longer Yokum twice Active FLORAL DEPARTMENT SPECIALIST daily NYSTATIN apply to NYSTATIN 02339352719 Active Indigo Active 321063 rash TID Yokum UNIT/GM PRN FLORAL DEPARTMENT SPECIALIST CREA TROKENDI XR 2 tab TOPIRAMATE 47717660176 Active Malihe Active 100 MG ORAL daily h [id number] Ziglar i [employer] METOPROLOL 1 tab po METOPROLOL 16704071807 Active Indigo Active TARTRATE 25 bid TARTRATE Yokum MG TABS FLORAL DEPARTMENT SPECIALIST AZITHROMYCI 2 po qd x AZITHROMYC 32396496363 No Jillin Active N 250 MG 1 day, IN Longer a TABS then 1 po Active Frazel qd x 4 l FLORAL DEPARTMENT SPECIALIST days PREDNISONE 2 pills PREDNISONE 49463149030 No Jillin Active 20 MG TAB daily x 4 Longer a days Active Frazel l FLORAL DEPARTMENT SPECIALIST PIOGLITAZON take one PIOGLITAZO 52934038614 Active Malihe Active E HCL 30 MG a day NE HCL h ORAL TABS Ziglar i [employer] JANUVIA 100 1 tablet SITAGLIPTI 54110574859 No Indigo Active MG TABS by mouth N Longer Yokum daily PHOSPHATE Active FLORAL DEPARTMENT SPECIALIST ATORVASTATI 1 pill by ATORVASTAT 83400529855 Active Indigo Active N CALCIUM mouth IN CALCIUM Yokum 10 MG TABS nightly, FLORAL DEPARTMENT SPECIALIST for cholester ol ASPIRIN 81 1 po qd ASPIRIN 28563669250 Active Indigo Active MG ORAL Yokum TABS FLORAL DEPARTMENT SPECIALIST NITROFURANT One NITROFURAN 83504259380 No Indigo Active OIN MONOHYD capsule TOIN Longer Yokum MACRO 100 BID for MONOHYD Active FLORAL DEPARTMENT SPECIALIST MG CAPS UTI MACRO TRAMADOL 1/2 po TRAMADOL 51238200720 No Jillin Active HCL 50 MG tid with HCL Longer a TABS ES Active Frazel Tylenol l FLORAL DEPARTMENT SPECIALIST prn pain VYVANSE 20 1 tablet LISDEXAMFE 51321649204 No Jillin Active MG ORAL daily for TAMINE Longer a CAPS binge DIMESYLATE Active Frazel eating l FLORAL DEPARTMENT SPECIALIST disorder LASIX 20 MG 2 tablet FUROSEMIDE 29048464417 Active Indigo Active TAB by mouth Yokum daily FLORAL DEPARTMENT SPECIALIST CELEBREX 1 tablet CELECOXIB 63488508950 Active Indigo Active 200 MG CAPS by mouth Yokum daily FLORAL DEPARTMENT SPECIALIST with meals PREDNISONE 2 tablets PREDNISONE 03497896178 No Joseph Active 20 MG TAB today, Longer W Farooq then 1 Active DO tablet days 2-4 DIFLUCAN 1 tablet FLUCONAZOL 31303767089 No Joseph Active 100 MG TAB by mouth E Longer W Farooq daily x 3 Active DO days DIFLUCAN 1 tablet FLUCONAZOL 64108837649 No Joseph Active 100 MG TABS by mouth E Longer W Farooq every Active DO other day for 2 doses ZOFRAN 4 MG 1 po q6hr ONDANSETRO 14697509702 Active Joseph Active TABS PRN N HCL W Farooq Nausea DO PREDNISONE 2 tabs PREDNISONE 23644315749 No Joseph Active 20 MG TAB daily for Longer W Farooq 3 days, 1 Active DO tab daily for 3 days, 1/2 tab daily for 2 days AMOXICILLIN 2 po BID AMOXICILLI 80670426008 No Maite C Active 500 MG CAPS x 10 days N Longer Madril Active PhD LISINOPRIL 1 tablet LISINOPRIL 53297748299 No Maite C Active 20 MG TABS by mouth Longer Madril daily Active PhD POTASSIUM 2 capsule POTASSIUM 67572160669 No Joseph Active CHLORIDE CR by mouth CHLORIDE Longer W Farooq 10 MEQ CPCR daily Active DO SPIRONOLACT 1 tablet SPIRONOLAC 50585758317 No Joseph Active ONE 25 MG by mouth TONE Longer W Farooq TAB daily Active DO METFORMIN 1 tablet METFORMIN 32207814660 No Joseph Active HCL 500 MG by mouth HCL Longer W Farooq TABS twice Active DO daily AMARYL 1 MG 1 tab GLIMEPIRID 79709730994 No Joseph Active TABS twice E Longer W Farooq daily Active DO PHENTERMINE 1 po q am PHENTERMIN 12616524180 No Joseph Active HCL 37.5 MG for wt. E HCL Longer W Farooq TABS loss Active DO PROMETHAZIN 1 tab by PROMETHAZI 75962629328 No Joseph Active E HCL 25 MG mouth NE HCL Longer W Farooq TABS every 6 Active DO hours as needed CIPROFLOXAC Take one CIPROFLOXA 91604179637 No Joseph Active IN HCL 500 (1) DELORES HCL Longer W Farooq MG TABS tablet by Active DO mouth twice a day ABILIFY 5 one p.o. ARIPIPRAZO 59182182867 No Joseph Active MG TABS q. day LE Longer W Farooq Active DO HYDROCHLORO 2 tabs HYDROCHLOR 46741054856 No Joseph Active THIAZIDE 25 every OTHIAZIDE Longer W Farooq MG TABS morning Active DO ABILIFY 2 1 po q hs ARIPIPRAZO 93642275742 No Joseph Active MG TABS for major LE Longer W Farooq depressio Active DO n ADIPEX-P 1/2 tab PHENTERMIN 42816196902 No Casey Active 37.5 MG po q am E HCL Longer [place] CAPS for Active PA weight loss CIPRO 500 1 tablet CIPROFLOXA 43199399055 No Casey Active MG TAB by mouth DELORES HCL Longer Leonarda twice Active PA daily NECON 1/35 1 po NORETHINDR 58149586786 No Casey Active (28) 1-35 daily ONE-ETH Longer [place] MG-MCG TABS ESTRADIOL Active PA TRAMADOL 1 po tid TRAMADOL 79064893960 No Casey Active HCL 50 MG with ES HCL Longer [place] TABS Tylenol Active PA FLUCONAZOLE one p.o. FLUCONAZOL 96993594325 No Casey Active 100 MG TABS q. day 2 E Longer [place] days Active PA POTASSIUM 1 capsule POTASSIUM 71683048349 No Casey Active CHLORIDE CR by mouth CHLORIDE Longer 10 MEQ CPCR daily Active PA IMIPRAMINE Take 6 IMIPRAMINE 99241375348 Active Indigo Active HCL 50 MG tablets HCL Yokum TABS by mouth FLORAL DEPARTMENT SPECIALIST at bedtime DIFLUCAN 1 tablet FLUCONAZOL 07361047369 No Joseph Active 100 MG TAB by mouth E Longer W Farooq daily Active DO VERAPAMIL 2 po bid VERAPAMIL 11786830119 Active Indigo Active HCL CR 120 HCL Yokum MG TAB CR FLORAL DEPARTMENT SPECIALIST PERMETHRIN apply PERMETHRIN 10148500105 No Joseph Active 5 % CREA neck to Longer W Farooq toes Active DO tonight and then rinse off in morning. repeat at 7 days SEROQUEL XR one p.o. QUETIAPINE 60193655252 No Joseph Active 50 MG q. FUMARATE Longer W Farooq [id number] evening Active DO TRAMADOL 1-2 TRAMADOL 03151560716 No Joseph Active HCL 50 MG tablets HCL Longer W Farooq TABS every 6-8 Active DO hours as needed for pain ALPRAZOLAM one p.o. ALPRAZOLAM 00429253460 Active Indigo Active 3 MG q.h.s. Yokum [id number] FLORAL DEPARTMENT SPECIALIST ALPRAZOLAM Take 1 ALPRAZOLAM 21593221461 No Joseph Active XR tablet by [id number] Longer W Farooq [id number] mouth at Active DO bedtime DIFLUCAN 1 tablet FLUCONAZOL 59905210670 No Joseph Active 100 MG TAB by mouth E Longer W Farooq daily Active DO AMBIEN 10 1 tab by ZOLPIDEM 30044540461 Active Indigo Active MG TAB mouth at TARTRATE Yokum bedtime FLORAL DEPARTMENT SPECIALIST as needed for sleep DIFLUCAN 100 1 tablet DIFLUCAN 955999 FLUCONAZOLE Inactive MG TAB by mouth 100 MG TAB daily ALPRAZOLAM Take 1 ALPRAZOLAM ALPRAZOLAM Inactive XR [id number] tablet by XR [id number] mouth at [id number] bedtime TRAMADOL HCL 1-2 TRAMADOL 814126 TRAMADOL HCL Inactive 50 MG TABS tablets HCL 50 MG every 6-8 TABS hours as needed for pain SEROQUEL XR one p.o. SEROQUEL XR QUETIAPINE Inactive 50 MG q. 50 MG FUMARATE [id number] evening [id number] PERMETHRIN 5 apply PERMETHRIN 596680 PERMETHRIN Inactive % CREA neck to 5 % CREA toes tonight and then rinse off in morning. repeat at 7 days DIFLUCAN 100 1 tablet DIFLUCAN 512773 FLUCONAZOLE Inactive MG TAB by mouth 100 MG TAB daily POTASSIUM 1 capsule POTASSIUM POTASSIUM Inactive CHLORIDE CR by mouth CHLORIDE CR CHLORIDE 10 MEQ CPCR daily 10 MEQ CPCR FLUCONAZOLE one p.o. FLUCONAZOLE 683684 FLUCONAZOLE Inactive 100 MG TABS q. day 2 100 MG TABS days TRAMADOL HCL 1 po tid TRAMADOL 240752 TRAMADOL HCL Inactive 50 MG TABS with ES HCL 50 MG Tylenol TABS NECON 1/35 1 po NECON 1/35 NORETHINDRONE- Inactive (28) 1-35 daily (28) 1-35 ETH ESTRADIOL MG-MCG TABS MG-MCG TABS CIPRO 500 MG 1 tablet CIPRO 500 775700 CIPROFLOXACIN Inactive TAB by mouth MG TAB HCL twice daily ADIPEX-P 1/2 tab ADIPEX-P 702127 PHENTERMINE Inactive 37.5 MG CAPS po q am 37.5 MG HCL for CAPS weight loss ABILIFY 2 MG 1 po q hs ABILIFY 2 796343 ARIPIPRAZOLE Inactive TABS for major MG TABS depressio n HYDROCHLOROT 2 tabs HYDROCHLORO 322570 HYDROCHLOROTHI Inactive HIAZIDE 25 every THIAZIDE 25 AZIDE MG TABS morning MG TABS ABILIFY 5 MG one p.o. ABILIFY 5 823071 ARIPIPRAZOLE Inactive TABS q. day MG TABS CIPROFLOXACI Take one CIPROFLOXAC 332694 CIPROFLOXACIN Inactive N HCL 500 MG (1) IN HCL 500 HCL TABS tablet by MG TABS mouth twice a day PROMETHAZINE 1 tab by PROMETHAZIN 488712 PROMETHAZINE Inactive HCL 25 MG mouth E HCL 25 MG HCL TABS every 6 TABS hours as needed PHENTERMINE 1 po q am PHENTERMINE 697849 PHENTERMINE Inactive HCL 37.5 MG for wt. HCL 37.5 MG HCL TABS loss TABS AMARYL 1 MG 1 tab AMARYL 1 MG 476596 GLIMEPIRIDE Inactive TABS twice TABS daily METFORMIN 1 tablet METFORMIN 050429 METFORMIN HCL Inactive HCL 500 MG by mouth HCL 500 MG TABS twice TABS daily SPIRONOLACTO 1 tablet SPIRONOLACT 329446 SPIRONOLACTONE Inactive NE 25 MG TAB by mouth ONE 25 MG daily TAB POTASSIUM 2 capsule POTASSIUM POTASSIUM Inactive CHLORIDE CR by mouth CHLORIDE CR CHLORIDE 10 MEQ CPCR daily 10 MEQ CPCR LISINOPRIL 1 tablet LISINOPRIL 797953 LISINOPRIL Inactive 20 MG TABS by mouth 20 MG TABS daily DIFLUCAN 100 1 tablet DIFLUCAN 19760111 FLUCONAZOLE Inactive MG TABS by mouth 100 MG TABS every other day for 2 doses DIFLUCAN 100 1 tablet DIFLUCAN 221807 FLUCONAZOLE Inactive MG TAB by mouth 100 MG TAB daily x 3 days PREDNISONE 2 tablets PREDNISONE 226044 PREDNISONE Inactive 20 MG TAB today, 20 MG TAB then 1 tablet days 2-4 VYVANSE 20 1 tablet VYVANSE 20 LISDEXAMFETAMI Inactive MG ORAL CAPS daily for MG ORAL NE DIMESYLATE binge CAPS eating disorder TRAMADOL HCL 1/2 po TRAMADOL 877035 TRAMADOL HCL Inactive 50 MG TABS tid with HCL 50 MG ES TABS Tylenol prn pain JANUVIA 100 1 tablet JANUVIA 100 SITAGLIPTIN Inactive MG TABS by mouth MG TABS PHOSPHATE daily AMARYL 1 MG 1 tablet AMARYL 1 MG 996885 GLIMEPIRIDE Inactive ORAL TABS orally ORAL TABS twice daily METFORMIN 2 tablets METFORMIN METFORMIN HCL Inactive HCL 500 MG by mouth HCL 500 MG TB24 twice TB24 daily AMOXICILLIN 2 po BID AMOXICILLIN 943551 AMOXICILLIN Inactive 500 MG CAPS x 10 days 500 MG CAPS PREDNISONE 2 tabs PREDNISONE 582204 PREDNISONE Inactive 20 MG TAB daily for 20 MG TAB 3 days, 1 tab daily for 3 days, 1/2 tab daily for 2 days NITROFURANTO One NITROFURANT 0652705 NITROFURANTOIN Inactive IN MONOHYD capsule OIN MONOHYD MONOHYD MACRO MACRO 100 MG BID for MACRO 100 CAPS UTI MG CAPS PREDNISONE 2 pills PREDNISONE 826201 PREDNISONE Inactive 20 MG TAB daily x 4 20 MG TAB days AZITHROMYCIN 2 po qd x AZITHROMYCI 0322097 AZITHROMYCIN Inactive 250 MG TABS 1 day, [...] BP nnuez blood pressure, systolic - 8480-6 107 mm[Hg] [...] HGBA1C - Chemistry sodium, serum 140 mmol/L 028-082 5904/06/03 potassium, serum 3.9 mmol/L 3.5-5.2 chloride, serum [...] Panel - Chemistry cholesterol, serum 157 mg/dL 048-756 3233/08/22 triglyceride, serum, fasting 215 mg/dL 30-200 HDL [...] mg/dL Encounters Code Encounter Date Provider Facility CPT-97468 Level 4 New Patient Yury Benoit MD [facility] 15:17:12 CDT CPT-28698 Level 3 Est. Patient [facility] - 13:37:46 CDT [place] CPT-72620 Level 4 Est. Patient [facility] - 10:01:06 CDT [place] CPT-61723 Level 3 Est. Patient [facility] 08:58:07 CDT [employer] CPT-63065 Level 3 Est. Patient Faby Marino [facility] 14:40:56 CDT FLORAL DEPARTMENT SPECIALIST CPT-23220 Level 4 Est. Patient [facility] 17:29:53 [employer] CPT-00810 Level 4 Est. Patient [facility] 09:51:54 [employer]PER CPT-11842 Level 3 Est. Patient [facility] 18[facility]38 [facility] CPT-00686 Level 3 Est. Patient Joseph Trivedi DO [facility] 14:42:12 CDT -[facility] CPT-74090 Level 3 Est. Patient Joseph Pineda [facility] 22:18:20 CDT -[facility] CPT-87598 Level 3 Est. Patient Joseph Pineda [facility] 16:46:04 CDT -[facility] CPT-23061 Level 3 Est. Patient Joseph Edwin [facility] 15:39:53 CDT -[facility] CPT-96685 Level 3 Est. Patient Maite Sanchez MD PhD [facility] 13:33:34 CDT -[facility] CPT-28066 Level 3 Est. Patient Joseph Edwin [facility] 11:37:08 CDT -[facility] CPT-78912 Level 3 Est. Patient Joseph Pineda [facility] 17:13:29 [employer] -[facility] CPT-70556 Level 3 Est. Patient Joseph Edwin [facility] 18:42:44 CDT CPT-87187 Level 3 Est. Patient Joseph Pineda [facility] 16:25:39 CDT CPT-04124 Level 3 Est. Patient Casey Brower [facility] 09:52:45 CDT -RHC CPT-21811 Level 3 Est. Patient Joseph Pineda [facility] 11:03:29 [employer] -RHC CPT-09780 Level 3 Est. Patient Joseph Pineda [facility] 11:03:08 ICE [employer] DIPPER -RHC CPT-60389 Level 3 Est. Patient Joseph Pineda [facility] 14:33:31 CDT -RHC CPT-86972 Level 3 Est. Patient Joseph Edwin [facility] 17:05:02 ICE [employer]AM DIPPER -RHC CPT-36843 Level 3 Est. Patient Joseph Pineda [facility] 17:48:06 ICE [employer]AM DIPPER -RHC CPT-85622 Level 3 Est. Patient Joseph Edwin [facility] 14:59:22 ICE CREAM DIPPER -RHC CPT-13573 Level 3 Est. Patient Joseph Pineda [facility] - 21:45:56 ICE [employer] DIPPER Jose RH CPT-56496 Level 3 Est. Patient Joseph Pineda [facility] 21:29:50 CDT -RHC CPT-50029 Level 3 Est. Patient Joseph Trivedi [facility] 12:41:09 CDT -RHC Procedures Code Procedure Name Date Entry Date Standard Description CPT-52365 Postop F/U Visit 12:08:35 CDT CPT-29821 Postop F/U Visit 18:20:10 CDT CPT-A4351 Coloplast Female Cath 09:37:10 CDT CPT-01035 Urine Dip (Floor Use Only) 15:17:13 CDT CPT-51374 Dil F ureth int 15:17:13 CDT CPT-93939 Venipuncture Draw Fee 09:19:08 CDT CPT-62598 Lipid - LAB USE ONLY 09:19:07 CDT CPT-JTINJ Asp/Joint Injection 09:26:49 CDT CPT-04089 Chest 2V Frontal and Lat 14:47:43 CDT CPT-JTINJ Asp/Joint Injection 09:51:53 [employer] D[employer] CPT-OV Office Visit 17:39:05 CDT CPT-OV Office Visit 15:19:50 CDT CPT-46654 Sono transvag pelvis non OB uterus ovaries cervix 18:04:34 CDT CPT-51411 Venipuncture Draw Fee 08:55:49 [employer]
--- OUTSIDE RECORDS SUMMARY | 2016-11-20 14:06 | External Medical Summary | Clinical Summary ---
:1965 Author Organization [employer] Address [address] [place] [address] Phone Allergies, Adverse Reactions, Alerts Allergy Name Reaction Description Start Date Severity Status Provider NKDA Critical No Longer Indigo Yokum THAI MASSEUR Active NKDA Critical Inactive Adrianna Elder Conditions [...] Resolved Indigo Other malaise 05/24 07/02 Yokum THAI MASSEUR and fatigue SLEEP APNEA, 327.23 Active Joseph [...] Resolved Indigo Hypopotassemia MILD 10/29 07/02 Yo THAI MASSEUR Diabetes, Type 250.00 Inactive Joseph Pineda Diabetes 2 06/27 06/27 Farooq DO mellitus without mention of complication, type II or unspecified type, not stated as uncontrolled Diabetes 250.02 Active Indigo Diabetes mellitus, type 06/27um THAI MASSEUR mellitus II, without mention uncontrolled of complication, [...] Resolved Indigo Routine gynecological 12/14 07/02 Yo THAI MASSEUR gynecological examination examination Postmenopausal 627.1 Resolved Indigo Postmenopausal bleeding 12/14 07/02 Youm THAI MASSEUR bleeding Screening for V76.51 Resolved Indigo Screening for malignant 12/26 07/02 Yokum THAI MASSEUR malignant neoplasms of neoplasms of colon colon Insomnia, 307.42 Active Indigo 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 Establish care V68.89 Resolved Indigo Encounters for or get 01/16 07/02 Yo THAI MASSEUR other specified acquainted administrative visit purpose Weakness, left 342.90 Active Indigo Hemiplegia, side of body 06/20 06/20 Yokum THAI MASSEUR unspecified, affecting unspecified side TIA 435.9 Active Indigo Unspecified 06/20 07/02 Yokum THAI MASSEUR transient cerebral ischemia Knee pain, 719.46 Active Indigo Pain in joint bilateral 06/20 07/02 Yokum THAI MASSEUR involving lower leg Bronchitis 490 Active Jillina Bronchitis, not 07/23 07/23 Frazell specified as THAI MASSEUR acute or chronic ABNORMAL VAGINAL ICD-626.9 Inactive Maite Matt Sanchez BLEEDING PhD SCABIES ICD-133.0 Inactive Maite C Laura MD PhD FATIGUE ICD-780.79 Inactive Indigo Yokum THAI MASSEUR OTH GENERAL ICD-V70.3 Inactive Maite C Laura MEDICAL MD PhD EXAMINATION ADMIN PURPOSES OTHER ABNORMAL ICD-790.29 Inactive Maite C Laura GLUCOSE MD PhD ACUTE BRONCHITIS ICD-466.0 Inactive Maite C Laura PhD HYPOKALEMIA, MILD ICD-276.8 Inactive Indigo Yokum THAI MASSEUR Sinusitis, ICD-461.1 Inactive Ismael Coyne frontal, acute Amandepe ONEAL Laryngitis, acute ICD-464.00 Inactive Ismael Coyne Amandeep ONEAL Routine ICD-V72.31 Inactive Indigo Yokum gynecological THAI MASSEUR examination Postmenopausal ICD-627.1 Inactive Indigo Yokum 2015 bleeding THAI MASSEUR Screening for ICD-V76.51 Inactive Indigo Yokum 2015 malignant THAI MASSEUR neoplasms of colon Establish care or ICD-V68.89 Inactive Inidgo Yokum get acquainted THAI MASSEUR visit Medication List Medication Instructions Start Stop Generic NDC Status Provider Patient Date Date Name Instruction AZITHROMYCIN 2 po AZITHROMYCIN 22283282227 Active Jillina Active 250 MG TABS qd x Frazell 1 THAI MASSEUR day, then 1 po qd x 4 days PREDNISONE 20 2 PREDNISONE 40734311045 Active Jillina Active MG TAB pills Frazell daily THAI MASSEUR x 4 days PIOGLITAZONE take PIOGLITAZONE 50174263892 Active Maliheh Active HCL 30 MG one a HCL Ziglari ORAL TABS day ARTISTS' MODEL JANUVIA 100 1 SITAGLIPTIN 94060589680 No Indigo Active MG TABS table PHOSPHATE Longer Yokum t by Active THAI MASSEUR mouth daily ATORVASTATIN 1 ATORVASTATIN 68073953804 Active Indigo Active CALCIUM 10 MG pill CALCIUM Yokum TABS by THAI MASSEUR mouth night ly, for lavelle stero l TROKENDI XR 1 tab TOPIRAMATE 27956468697 Active Indigo Active 100 MG ORAL daily Yokum [id number] THAI MASSEUR ASPIRIN 81 MG 1 po ASPIRIN 27636362427 Active Indigo Active ORAL TABS qd Yokum THAI MASSEUR NITROFURANTOI One NITROFURANTOI 61656134540 No Indigo Active N MONOHYD capsu N MONOHYD Longer Yokum MACRO 100 MG le MACRO Active THAI MASSEUR CAPS BID for UTI METFORMIN HCL 2 METFORMIN HCL 21308618358 Active Indigo Active 500 MG TB24 table Yokum ts by THAI MASSEUR mouth twice daily TRAMADOL HCL 1/2 TRAMADOL HCL 31989034682 No Jillina Active 50 MG TABS po Longer [place]ell tid Active THAI MASSEUR with ES Tylen ol prn pain VYVANSE 20 MG 1 LISDEXAMFETAM 10503091445 No Jillina Active ORAL CAPS table INE Longer [place] t DIMESYLATE Active THAI MASSEUR daily for binge eatin g disor janiya LASIX 20 MG 2 FUROSEMIDE 94404480022 Active Joseph W Active TAB table Farooq DO t by mouth daily CELEBREX 200 1 CELECOXIB 77862686334 Active Joseph W Active MG CAPS table Farooq DO t by mouth daily with meals PREDNISONE 20 2 PREDNISONE 47655234685 No Joseph W Active MG TAB table Longer Farooq DO ts Active today , then 1 table t days 2-4 DIFLUCAN 100 1 FLUCONAZOLE 81783704089 No Joseph W Active MG TAB table Longer Farooq DO t by Active mouth daily x 3 days AMARYL 1 MG 1 GLIMEPIRIDE 75182626389 Active Joseph W Active ORAL TABS table Farooq DO t orall y twice daily DIFLUCAN 100 1 FLUCONAZOLE 59982732648 No Joseph W Active MG TABS table Longer Farooq DO t by Active mouth every other day for 2 doses ZOFRAN 4 MG 1 po ONDANSETRON 88372379828 Active Joseph Pineda Active TABS q6hr HCL Farooq DO PRN Nause a PREDNISONE 20 2 PREDNISONE 44589591924 No Joseph Pineda Active MG TAB tabs Longer Farooq DO daily Active for 3 days, 1 tab daily for 3 days, 1/2 tab daily for 2 days AMOXICILLIN 2 po AMOXICILLIN 10998937191 No Maite C Active 500 MG CAPS BID x Longer Madril 10 Active PhD days LISINOPRIL 20 1 LISINOPRIL 12629473202 No Maite C Active MG TABS table Longer Madril t by Active PhD mouth chilo y POTASSIUM 2 POTASSIUM 67296948454 No Joseph Pineda Active CHLORIDE CR capsu CHLORIDE Longer Farooq DO 10 MEQ CPCR le by Active mouth daily SPIRONOLACTON 1 SPIRONOLACTON 17671843067 No Joseph Pineda Active E 25 MG TAB table E Longer Farooq DO t by Active mouth daily METFORMIN HCL 1 METFORMIN HCL 62867923023 No Joseph Pineda Active 500 MG TABS table Longer Farooq DO t by Active mouth twice daily AMARYL 1 MG 1 tab GLIMEPIRIDE 93484629655 No Joseph Pineda Active TABS twice Longer Farooq DO daily Active PHENTERMINE 1 po PHENTERMINE 76560488221 No Joseph W Active HCL 37.5 MG q am HCL Longer Farooq DO TABS for Active wt. loss PROMETHAZINE 1 tab PROMETHAZINE 25066672493 No Joseph W Active HCL 25 MG by HCL Longer Farooq DO TABS mouth Active every 6 hours as neede d CIPROFLOXACIN Take CIPROFLOXACIN 78690334900 No Joseph W Active HCL 500 MG one HCL Longer Farooq DO TABS (1) Active table t by mouth twice a day ABILIFY 5 MG one ARIPIPRAZOLE 30607105147 No Joseph W Active TABS p.o. Longer Farooq DO q. Active day HYDROCHLOROTH 2 HYDROCHLOROTH 90527177193 No Joseph W Active IAZIDE 25 MG tabs IAZIDE Longer Farooq DO TABS every Active morni ng ABILIFY 2 MG 1 po ARIPIPRAZOLE 31101525258 No Joseph W Active TABS q hs Longer Farooq DO for Active major depre ssion ADIPEX-P 37.5 / PHENTERMINE 38718332315 No Casey Active MG CAPS tab HCL Longer Leonarda po q Active PA am for weigh t loss CIPRO 500 MG 1 CIPROFLOXACIN 69000085643 No Casey Active TAB table HCL Longer [place] t by Active PA mouth twice daily NECON 35 1 po NORETHINDRONE 70061984019 No Casey Active (28) 1-35 daily -ETH Longer [place] MG-MCG TABS ESTRADIOL Active PA TRAMADOL HCL 1 po TRAMADOL HCL 48089214635 No Casey Active 50 MG TABS tid Longer Leonarda with Active PA ES Tylen ol FLUCONAZOLE one FLUCONAZOLE 69027342529 No Casey Active 100 MG TABS p.o. Longer [place] q. Active PA day 2 days POTASSIUM 1 POTASSIUM 69678692674 No Casey Active CHLORIDE CR capsu CHLORIDE Longer Leonarda 10 MEQ CPCR le by Active PA mouth daily IMIPRAMINE Take IMIPRAMINE 69678368290 Active Joseph W Active HCL 50 MG 6 HCL Farooq DO TABS table ts by mouth at bedti me DIFLUCAN 100 1 FLUCONAZOLE 83327835808 No Joseph W Active MG TAB table Longer Farooq DO t by Active mouth daily METOPROLOL 1/2 METOPROLOL 13716012474 Active Joseph W Active TARTRATE 25 tab TARTRATE Farooq DO MG TABS po bid VERAPAMIL HCL 2 po VERAPAMIL HCL 89667122068 Active Joseph W Active CR 120 MG TAB bid Farooq DO CR PERMETHRIN 5 apply PERMETHRIN 40904629684 No Joseph W Active % CREA neck Longer Farooq DO to Active toes tonig ht and then rinse off in morni ng. repea t at 7 days SEROQUEL XR one QUETIAPINE 90122188942 No Joseph W Active 50 MG p.o. FUMARATE Longer Farooq DO [id number] q. Active eveni ng TRAMADOL HCL 1-2 TRAMADOL HCL 68656850620 No Joseph W Active 50 MG TABS table Longer Farooq DO ts Active every 6-8 hours as neede d for pain ALPRAZOLAM 3 one ALPRAZOLAM 23356567809 Active Indigo Active MG [id number] p.o. Yokum q.h.s THAI MASSEUR . ALPRAZOLAM XR Take ALPRAZOLAM 08416692784 No Joseph W Active [id number] 1 [id number] Longer Farooq DO table Active t by mouth at bedti me DIFLUCAN 100 1 FLUCONAZOLE 66804104799 No Joseph W Active MG TAB table Longer Farooq DO t by Active mouth daily AMBIEN 10 MG 1 tab ZOLPIDEM 19024657080 Active Afsaneh Active TAB by TARTRATE Gericke, mouth MA at bedti me as neede d for sleep DIFLUCAN 100 1 tablet DIFLUCAN 549020 FLUCONAZOLE Inactive MG TAB by mouth 100 MG TAB daily ALPRAZOLAM Take 1 ALPRAZOLAM ALPRAZOLAM Inactive XR [id number] tablet by XR [id number] mouth at [id number] bedtime TRAMADOL HCL 1-2 TRAMADOL 977192 TRAMADOL HCL Inactive 50 MG TABS tablets HCL 50 MG every 6-8 TABS hours as needed for pain SEROQUEL XR one p.o. SEROQUEL XR QUETIAPINE Inactive 50 MG q. 50 MG FUMARATE [id number] evening [id number] PERMETHRIN 5 apply PERMETHRIN 173573 PERMETHRIN Inactive % CREA neck to 5 % CREA toes tonight and then rinse off in morning. repeat at 7 days DIFLUCAN 100 1 tablet DIFLUCAN 406949 FLUCONAZOLE Inactive MG TAB by mouth 100 MG TAB daily POTASSIUM 1 capsule POTASSIUM POTASSIUM Inactive CHLORIDE CR by mouth CHLORIDE CR CHLORIDE 10 MEQ CPCR daily 10 MEQ CPCR FLUCONAZOLE one p.o. FLUCONAZOLE 19760111 FLUCONAZOLE Inactive 100 MG TABS q. day 2 100 MG TABS days TRAMADOL HCL 1 po tid TRAMADOL 035735 TRAMADOL HCL Inactive 50 MG TABS with ES HCL 50 MG Tylenol TABS NECON 1/35 1 po NECON 1/35 NORETHINDRONE- Inactive (28) 1-35 daily (28) 1-35 ETH ESTRADIOL MG-MCG TABS MG-MCG TABS CIPRO 500 MG 1 tablet CIPRO 500 625840 CIPROFLOXACIN Inactive TAB by mouth MG TAB HCL twice daily ADIPEX-P 1/2 tab ADIPEX-P 725216 PHENTERMINE Inactive 37.5 MG CAPS po q am 37.5 MG HCL for CAPS weight loss ABILIFY 2 MG 1 po q hs ABILIFY 2 890778 ARIPIPRAZOLE Inactive TABS for major MG TABS depressio n HYDROCHLOROT 2 tabs HYDROCHLORO 333392 HYDROCHLOROTHI Inactive HIAZIDE 25 every THIAZIDE 25 AZIDE MG TABS morning MG TABS ABILIFY 5 MG one p.o. ABILIFY 5 599670 ARIPIPRAZOLE Inactive TABS q. day MG TABS CIPROFLOXACI Take one CIPROFLOXAC 900937 CIPROFLOXACIN Inactive N HCL 500 MG (1) IN HCL 500 HCL TABS tablet by MG TABS mouth twice a day PROMETHAZINE 1 tab by PROMETHAZIN 868129 PROMETHAZINE Inactive HCL 25 MG mouth E HCL 25 MG HCL TABS every 6 TABS hours as needed PHENTERMINE 1 po q am PHENTERMINE 652268 PHENTERMINE Inactive HCL 37.5 MG for wt. HCL 37.5 MG HCL TABS loss TABS AMARYL 1 MG 1 tab AMARYL 1 MG 119488 GLIMEPIRIDE Inactive TABS twice TABS daily METFORMIN 1 tablet METFORMIN 624139 METFORMIN HCL Inactive HCL 500 MG by mouth HCL 500 MG TABS twice TABS daily SPIRONOLACTO 1 tablet SPIRONOLACT 190291 SPIRONOLACTONE Inactive NE 25 MG TAB by mouth ONE 25 MG daily TAB POTASSIUM 2 capsule POTASSIUM POTASSIUM Inactive CHLORIDE CR by mouth CHLORIDE CR CHLORIDE 10 MEQ CPCR daily 10 MEQ CPCR LISINOPRIL 1 tablet LISINOPRIL 139634 LISINOPRIL Inactive 20 MG TABS by mouth 20 MG TABS daily DIFLUCAN 100 1 tablet DIFLUCAN 033103 FLUCONAZOLE Inactive MG TABS by mouth 100 MG TABS every other day for 2 doses DIFLUCAN 100 1 tablet DIFLUCAN 266628 FLUCONAZOLE Inactive MG TAB by mouth 100 MG TAB daily x 3 days PREDNISONE 2 tablets PREDNISONE 966611 PREDNISONE Inactive 20 MG TAB today, 20 MG TAB then 1 tablet days 2-4 VYVANSE 20 1 tablet VYVANSE 20 LISDEXAMFETAMI Inactive MG ORAL CAPS daily for MG ORAL NE DIMESYLATE binge CAPS eating disorder TRAMADOL HCL 1/2 po TRAMADOL 371504 TRAMADOL HCL Inactive 50 MG TABS tid with HCL 50 MG ES TABS Tylenol prn pain JANUVIA 100 1 tablet JANUVIA 100 SITAGLIPTIN Inactive MG TABS by mouth MG TABS PHOSPHATE daily AMOXICILLIN 2 po BID AMOXICILLIN 212754 AMOXICILLIN Inactive 500 MG CAPS x 10 days 500 MG CAPS PREDNISONE 2 tabs PREDNISONE 498045 PREDNISONE Inactive 20 MG TAB daily for 20 MG TAB 3 days, 1 tab daily for 3 days, 1/2 tab daily for 2 days NITROFURANTO One NITROFURANT 9151894 NITROFURANTOIN Inactive IN MONOHYD capsule OIN MONOHYD [...] HGBA1C - Chemistry sodium, serum 140 mmol/L 296-899 7236/04/13 potassium, serum 3.9 mmol/L 3.5-5.2 chloride, serum [...] 198 10^3/MM^3 10*3/mm3 142-424 Lab Report: Chlamydia/GC APTIMA/04000 - Lab chlamydia DNA probe NOT DETECTED NOT DETECTED Lab Report: Chlamydia/GC APTIMA/16230 - Microbiology Neisseria gonorrhoeae DNA probe NOT DETECTED NOT DETECTED Lab Report: Comp. Metabolic Panel, Lipid Panel - Chemistry sodium, serum 136 mmol/L 534-965 8449/01/04 carbon dioxide, venous blood 27.0 mmol/L 21.0-32.0 potassium, serum 4.6 mmol/L 3.5-5.2 chloride, serum 98 mmol/L 98-107 blood glucose 174 mg/dL 65-110 urea nitrogen, blood 12 mg/dL 7-18 creatinine, serum 0.78 mg/dL 0.55-1.30 alanine aminotransferase (SGPT), serum 65 U/L 12-78 aspartate aminotransferase (SGOT), serum 34 U/L 15-37 calcium, serum 8.9 mg/dL 8.5-10.1 bilirubin, serum, total 0.40 mg/dL 0.00-1.00 cholesterol, serum 219 mg/dL 671-723 6893/01/04 triglyceride, serum, fasting 214 mg/dL 30-200 HDL [...] mg/g mg/g{creat} 0-29 sodium, serum 140 mmol/L 780-762 3609/07/21 potassium, serum 3.9 mmol/L 3.5-5.2 chloride, serum [...] Yes Encounters Code Encounter Date Provider Facility CPT-70796 Level 3 Est. Patient Ciaranvandanadorothy Marino [facility] 14:40:56 CDT [facility] CPT-88010 Level 4 Est. Patient Arnold Berrios [facility] 17:29:53 INBOUND CUSTOMER SERVICE REPRESENTATIVE [employer] CPT-61248 Level 4 Est. Patient Indigo Sexton [facility] 09:51:54 INBOUND CUSTOMER SERVICE REPRESENTATIVE CPT-95549 Level 3 Est. [facility]-41109 Level 3 Est. Patient Joseph Pineda [facility] 14:42:12 CDT -[facility] CPT-26924 Level 3 Est. Patient Joseph Edwin [facility] 22:18:20 CDT -[facility] CPT-17050 Level 3 Est. Patient Joseph Pineda [facility] 16:46:04 CDT -[facility] CPT-99109 Level 3 Est. Patient Joseph Edwin [facility] 15:39:53 CDT -[facility] CPT-94276 Level 3 Est. Patient Maite Sanchez MD PhD [facility] 13:33:34 CDT -[facility] CPT-95119 Level 3 Est. Patient Joseph Pineda [facility] 11:37:08 CDT -[facility] CPT-35360 Level 3 Est. Patient Joseph Pineda [facility] 17:13:29 INBOUND CUSTOMER SERVICE REPRESENTATIVE -[facility] CPT-03127 Level 3 Est. Patient Joseph Pineda [facility] 18:42:44 CDT CPT-03513 Level 3 Est. Patient Joseph Trivedi [facility] 16:25:39 CDT CPT-19127 Level 3 Est. Patient Casey ARCHIBALD [facility] 09:52:45 CDT -[facility] CPT-66224 Level 3 Est. Patient Joseph W [facility] 11:03:29 INBOUND CUSTOMER SERVICE REPRESENTATIVE -[facility] CPT-37147 Level 3 Est. Patient Joseph Pineda [facility] 11:03:08 INBOUND CUSTOMER SERVICE REPRESENTATIVE -[facility] CPT-67295 Level 3 Est. Patient Joseph Pineda [facility] 14:33:31 CDT -[facility] CPT-62824 Level 3 Est. Patient Joseph Edwin [facility] 17:05:02 INBOUND CUSTOMER SERVICE REPRESENTATIVE -[facility] CPT-21872 Level 3 Est. Patient Joseph Pineda [facility] 17:48:06 INBOUND CUSTOMER SERVICE REPRESENTATIVE -[facility] CPT-36927 Level 3 Est. Patient Joseph Edwin [facility] 14:59:22 INBOUND CUSTOMER SERVICE REPRESENTATIVE -[facility] CPT-84486 Level 3 Est. Patient [place] Edwin [facility] - 21:45:56 INBOUND CUSTOMER SERVICE REPRESENTATIVE Jose [facility] CPT-32904 Level 3 Est. Patient [facility] 21:29:50 CDT -[facility] CPT-07550 Level 3 Est. Patient [facility] 12:41:09 CDT -[facility] Procedures Code Procedure Name Date Entry Date Standard Description CPT-51424 Chest 2V Frontal and Lat 14:47:43 CDT CPT-JTINJ Asp/Joint Injection 09:51:53 INBOUND CUSTOMER SERVICE REPRESENTATIVE CPT-OV Office Visit 17:39:05 CDT CPT-OV Office Visit 15:19:50 CDT CPT-58871 Sono transvag pelvis non OB uterus ovaries cervix 18:04:34 CDT CPT-45269 Venipuncture Draw Fee 08:55:49 INBOUND CUSTOMER SERVICE REPRESENTATIVE
--- OUTSIDE RECORDS SUMMARY | 2016-11-20 14:06 | External Medical Summary ---
:1965 Author [facility] Care Team Providers Name Role Phone ARELIS ALEJANDRO INDIGO Primary Care Provider [phone] INDIGO SEXTON APRN Primary Care Provider [phone] Summary purpose TRANSITION OF CARE AUTO GENERATION [...] tests and/or laboratory data RESULTS Routine Urinalysis [id number]:45:00 Result Normal Range Units Color YELLOW Clarity Clear Specific Crocker 1.020 1.003-1.035 pH 5.5 4.5-8.0 Glucose NEGATIVE Bilirubin NEGATIVE Ketones NEGATIVE Protein NEGATIVE Urobilinogen 0.2 0-0.2 E.U./dL Nitrites NEGATIVE Blood NEGATIVE Leukocytes TRACE WBCs 5-10 RBCs 0-5 Squamous Epithelial 1+ Bacteria 4+ Blood Cultures [id number]:35:00 Blood Culture Plate Date and Time 06/06/2015 20:38 SourceBLOOD CULTURE REPORT NoGrowth at 1 day. Unless otherwise notified. Final report in 5 Days. Release Date/Time: 06/08/2015 08:58 CULTURE REPORT No growth in 5 days. Release Date/Time: 06/12/2015 07:31 [id number]:34:00 Blood Culture Plate Date and Time 06/06/2015 20:38 SourceBLOOD CULTURE REPORT NoGrowth at 1 day. Unless otherwise notified. Final report in 5 Days. Release Date/Time: 06/08/2015 08:58 CULTURE REPORT No growth in 5 days. Release Date/Time: 06/12/2015 07:31 Routine Cultures [id number]:50:00 Urine Culture Plate Date and Time 06/07/2015 01:51 SourceURINE CULTURE REPORT >100,000 colonies/ml Gram Negative Rods ID & Sensitivity to follow Release Date/Time: 06/08/2015 08:00 ORGID #1:>100,000 colonies/ml ESCHERICHIA COLI Release Date/Time: 06/09/2015 09:01 Sensitivity #1: ESCCOL AMPICILLIN <=8S AMOX CLAV<=8/4 S AZTREONAM<=8S CEFTRIAXONE<=8S CEFTAZIDIME<=1S CEFOTAXIME <=2S CEFOXITIN<=8S CEFAZOLIN<=8S CIPROFLOXACIN> 2 R CEFEPIME <=8S CEFUROXIME <=4S ERTAPENEM<=2S NITROFURANTOIN <=32 S GENTAMICIN <=4S AMPICILLIN SULBACTAM <=8/4 S IMIPENEM <=4S LEVOFLOXACIN > 4 R MEROPENEM<=4S TRIMETHSULFA <=2/38S TETRACYCLINE 8 I PIPTAZO<=16 S Chemistry [id number]:34:00 Result Normal Range Units Sodium 139 134-145 [...] mL/min/1.7 Lactic Acid 2.0 0.4-2.0 mmol/L Hematology [id number]:34:00 Result Normal Range Units WBC 6.0 4.8-10.8 103/uL RBC 4.2 4.2-5.4 106/uL HGB 13.0 12.0-16.0 g/dl HCT 37.7 36.9-47.0 % MCV 88.9 81-99 FL MCH 30.7 27-31 pg MCHC 34.5 33-37 g/dl RDW 12.7 11.5-15.5 % PLT 189 130-400 103/uL MPV 9.8 7.3-10.4 FL Neutro % 51.1 40-70 % Lymph % 36.3 20-40 % Bell % 8.4 0-10.0 % Eos % 3.4 0-7.0 % Baso % 0.3 0-2 % Neutro # 3.1 1.5-7.5 103/uL Lymph # 2.2 0.9-4.0 103/uL Bell # 0.5 0-0.8 103/uL Eos # 0.2 0-0.6 103/uL Baso # 0.0 0-0.1 103/uL Body Fluid [id number]:45:00 Result Normal Range Units pH 5.5 4.5-8.0 Radiology Results [id number]:09:00 CT HEAD W/O CONT PACs Image DATE OF EXAM: 2015 [id number] HEAD WO CONTRAST : RADIOLOGY REPORT DATE OF SERVICE: 06/06/15 HISTORY: Patient has hypertension and headache. CT HEAD WITHOUT CONTRAST 2020 HOURS Axial images were obtained from base of skull to vertex. No intracranial hemorrhage is seen. There is no evidence of infarct. Ventricular system is normal. Visualized sinuses, orbits and bony structures are normal. IMPRESSION: Negative study of the brain. Mark Kim DO /ok 06/07/2015 06:55:00 / 06/07/2015 08:23:39 cc:Indigo Sexton APRN This document has been electronically Signed by: On: DATE OF EXAM: 2015 [id number] HEAD WO CONTRAST : RADIOLOGY REPORT DATE OF SERVICE: 06/06/15 HISTORY: Patient has hypertension and headache. CT HEAD WITHOUT CONTRAST 2020 HOURS Axial images were obtained from base of skull to vertex. No intracranial hemorrhage is seen. There is no evidence of infarct. Ventricular system is normal. Visualized sinuses, orbits and bony structures are normal. IMPRESSION: Negative study of the brain. Mark Kim DO /ok 06/07/2015 06:55:00 06/07/2015 08:23:39 cc:Indigo Sexton APRN This document has been electronically Signed by: MARK KIM DO On: 20153:09P TRANSIET LEFT SIDE ED WEAKNESS HEADACHE Result Amended on 2015-06-08 at 15:09:43. Previous status was [place]. TRANSIET LEFT SIDE ED WEAKNESS HEADACHE [id number]:34:00 Result Normal Range Units MPV 9.8 7.3-10.4 FL History of procedures Procedure Code Code Type Description Date Performed Performing Physician 72429 CPT-4 ROUTINE VENIPUNCTURE 06-06-2015 SUJATHA JOHNSTON 45668 CPT-4 ROUTINE VENIPUNCTURE 06-06-2015 BENITO AGUSTIN 13581 CPT-4 CT HEAD/BRAIN W/O DYE 06-06-2015 BENITO AGUSTIN 92370 CPT-4 COMPREHEN METABOLIC 06-06-2015 BENITO AGUSTIN PANEL 05270 CPT-4 URINALYSIS, AUTO 06-06-2015 BENITO AGUSTIN W/SCOPE 24696 CPT-4 ASSAY OF LACTIC ACID 06-06-2015 BENITO AGUSTIN 30526 CPT-4 COMPLETE CBC W/AUTO DIFF 06-06-2015 BENITO AGUSTIN WBC 04961 CPT-4 BLOOD CULTURE FOR 06-06-2015 BENITO AGUSTIN BACTERIA 15661 CPT-4 BLOOD CULTURE FOR 06-06-2015 BENITO AGUSTIN BACTERIA 70724 CPT-4 CULTURE AEROBIC 06-07-2015 SUJATHA JOHNSTON IDENTIFY 23632 CPT-4 URINE CULTURE/COLONY 06-06-2015 BENITO AGUSTIN COUNT 80171 CPT-4 MICROBE SUSCEPTIBLE, 06-07-2015 SUJATHA JOHNSTON ROSEMARY 22150 CPT-4 ELECTROCARDIOGRAM, 06-06-2015 BENITO AGUSTIN TRACING 37818 CPT-4 THER/PROPH/DIAG INJ, IV 06-06-2015 BENITO AGUSTIN PUSH 94387 CPT-4 TX/PRO/DX INJ NEW DRUG 06-06-2015 BENITO AGUSTIN ADDON 05509 CPT-4 TX/PRO/DX INJ NEW DRUG 06-06-2015 BENITO AGUSTIN SHROUD LINE TIER 38980 CPT-4 EMERGENCY DEPT VISIT 06-06-2015 BENITO AGUSTIN 82185 CPT-4 EMERGENCY DEPT VISIT 06-06-2015 BENITO AGUSTIN G0378 CPT-4 HOSPITAL OBSERVATION PER 06-06-2015 SUJATHA JOHNSTON HR G0378 CPT-4 HOSPITAL OBSERVATION PER 06-07-2015 SUJATHA JOHNSTON HR J1170 CPT-4 HYDROMORPHONE 06-06-2015 SUJATHA JOHNSTON INJECTION J1170 CPT-4 HYDROMORPHONE 06-06-2015 SUJATHA JOHNSTON INJECTION J1885 CPT-4 TORADOL SYR 30MG/ML 06-06-2015 SUJATHA JOHNSTON J2405 CPT-4 ONDANSETRON HCL 06-06-2015 SUJATHA JOHNSTON INJECTION J7030 CPT-4 NORMAL SALINE SOLUTION 06-07-2015 BENITO AGUSTIN INFUS Functional status Functional Status Finding Observation Time Hearing Prob Loc none 46-96-665760:05 Vision Problems yes 10-95-820524:05 Vision Correct Dev glasses 70-75-900063:05 Ambulation Asst Dev none 85-21-442185:05 Range of Motion full 80-28-087530:00 Muscle Strength RUE 5 ROM full resist 11-68-929216:00 Muscle Strength RLE 5 ROM full resist 94-23-477354:00 Muscle Strength LUE 5 ROM full resist 84-66-856302:00 Muscle Strength LLE 5 ROM full resist 54-93-951017:00 Transfers assist x 1 01-32-274011:00 Ambulation in room 97-55-151816:00 Balance steady 28-52-020332:00 Bathing Assistance none 55-87-964453:05 Eating Assistance none 99-98-089840:05 Dressing Assistance none :05 Toileting Assistance none :05 Transfer Assistance none :05 Decline Slf Care/Mob no :05 Phys Cond Stable yes :05 Nutrition normal :00 Diet regular 78-36-165875:00 Oral Cavity moist and intact :00 Teeth missing (specify) :00 Dental Hygiene good :00 Abdomen Appearance obese :00 Abdomen soft :00 Bowel Sounds present :00 NG Tube no :00 Feeding Tube none :00 Buck no :00 Cont Bladder Irr no :00 Ostomy no :00 Stool normal :00 Urination normal 10-05-590608:00 Quality sym/unlabored 36-33-092458:00 Cough absent 44-96-769507:00 Secretions no 64-28-048028:00 Breath Sounds RUL clear 27-12-265348:00 Breath Sounds RML clear 27-57-266633:00 Breath Sounds RLL clear 71-75-052991:00 Breath Sounds ADE clear 89-94-196127:00 Breath Sounds LLL clear 73-35-557903:00 Airway natural 67-21-537497:00 Chest Tube no 88-30-792017:00 Oxygen no 62-14-878227:00 C-PAP no 12-43-361212:00 BI-PAP no 14-04-997831:00 Temp >100.4 no 61-92-869282:00 Temp <96.8 no 47-63-069149:00 Chills with rigors no 09-48-121527:00 HR > 90bpm yes 17-36-966792:00 Respirations > 20 no 08-78-533933:00 Systolic <90 no 16-27-305224:00 headache stiff neck no 31-92-702261:00 WBC > 98974 no 15-88-513841:00 WBC < 4000 no 19-71-198745:00 IV Site Location L FA 22-88-718354:50 IV Type peripheral :50 IV Site Information discontinued :50 IV Site Start Attmpt 1 times :12 IV Site Mynor 20 79-27-547344:00 IV Site Appearance WNL :00 IV Site Color clear :00 IV Site Patent yes :00 Dressing Type occlusive :00 Nursing Note pt states she still has a slight headache but doing some better.Pt states she is :05 neediing a note for work. This RN told pt to contact PCP for the note. pt staes stay was good. Cognitive Status Finding Observation Time Oriented To Date 5 Yes :[address] 5 Yes :05 Name 3 Objects 3 Yes :05 Name Object in Rm 2 Yes :05 Recall 3 Objects 3 Yes :05 Repeats a Phrase 1 Yes :05 Follows Verbal Direc 3 Yes :05 Follows Written Dire 1 Yes :05 Write a Sentance 1 Yes :05 Draw an Object 1 Yes :05 Mini Mental Total 25 points :05 Less than 20 Phys not applicable :05 Learning Ability comprehends well :24 Neurological no :24 Psychological no :24 Physical no :24 Hearing no :24 Wafer Cleaner Needed no :24 Sign Language no :24 Emotional yes :24 Vision yes :24 Laguage no :24 Financial no :24 Vital signs Type Value Date Respiration Rate 18breaths per minute :22 Pulse 93beats per minute :22 Oxygen Saturation 94% 29-58-756797:22 BP Systolic 134mmHg 59-26-872302:22 BP Diastolic 71mmHg 27-88-735603:22 Temperature 97.2F 53-51-320599:22 Height 62inches :05 Weight 244.0LB :05 Social [...] Rev yes Immun Indicated no PNE Vac 2013 Flu Vac unknown Comment: pt states not current Tetanus Vac unknown Diet Explained yes Follow up appt already scheduled Follow Up Appt D/T 06/20/2015 5170
--- OUTSIDE RECORDS SUMMARY | 2016-11-20 14:06 | External Medical Summary | Clinical Summary ---
:1965 Author Organization [facility] Address [address] [place] [address] Phone Allergies, Adverse Reactions, Alerts Allergy Name [...] Routine gynecological 12/14 12/14 [place] gynecological examination EVENTS ADMINISTRATIVE ASSISTANT examination Postmenopausal 627.1 Active Jillina Postmenopausal bleeding 12/14 12/14 [place] bleeding EVENTS ADMINISTRATIVE ASSISTANT ABNORMAL VAGINAL ICD-626.9 Inactive Maite Sanchez BLEEDING PhD SCABIES ICD-133.0 Inactive Maite Sanchez PhD OT GENERAL ICD-V70.3 Inactive Maite Sanchez MEDICAL PhD EXAMINATION ADMIN PURPOSES OTHER ABNORMAL ICD-790.29 Inactive Maite Sanchez GLUCOSE PhD ACUTE BRONCHITIS ICD-466.0 Inactive Maite Sanchez PhD Medication List Medication Instructions Start Stop Generic NDC Status Provider Patient Date Date Name Instruction TRAMADOL / po TRAMADOL 39742234768 No Jillina Active HCL 50 MG tid with HCL Longer [place] TABS ES Active EVENTS ADMINISTRATIVE ASSISTANT Tylenol prn pain VYVANSE 20 1 tablet LISDEXAMF 59952463176 No Jillina Active MG ORAL daily for ETAMINE Longer [place] CAPS binge DIMESYLAT Active EVENTS ADMINISTRATIVE ASSISTANT eating E disorder METFORMIN 2 tablet METFORMIN 30985643636 Active Joseph W Active HCL 500 MG daily for HCL Farooq DO TB24 blood sugars LASIX 20 2 tablet FUROSEMID 41782841260 Active Joseph Pineda Active MG TAB by mouth E Farooq DO daily CELEBREX 1 tablet CELECOXIB 33234095177 Active Joseph W Active 200 MG by mouth Farooq DO CAPS daily with meals PREDNISONE 2 tablets PREDNISON 35868624382 No Joseph W Active 20 MG TAB today, E Longer Farooq DO then 1 Active tablet days 2-4 DIFLUCAN 1 tablet FLUCONAZO 30972775889 No Joseph W Active 100 MG TAB by mouth LE Longer Farooq DO daily x 3 Active days AMARYL 1 1 tablet GLIMEPIRI 92974821155 Active Joseph Pineda Active MG ORAL orally DE Farooq DO TABS twice daily DIFLUCAN 1 tablet FLUCONAZO 34141402728 No Joseph Pineda Active 100 MG by mouth LE Longer Farooq DO TABS every Active other day for 2 doses ZOFRAN 4 1 po q6hr ONDANSETR 44450374367 Active Bam Pineda Active MG TABS PRN ON HCL Dillow Nausea PREDNISONE 2 tabs PREDNISON 94373604611 No Joseph Pineda Active 20 MG TAB daily for E Longer Farooq DO 3 days, 1 Active tab daily for 3 days, 1/2 tab daily for 2 days AMOXICILLI 2 po BID AMOXICILL 76746648847 No Maite C Active N 500 MG x 10 days IN Longer Madril CAPS Active PhD LISINOPRIL 1 tablet LISINOPRI 97091501915 No Maite C Active 20 MG TABS by mouth L Longer Madril daily Active PhD POTASSIUM 2 capsule POTASSIUM 98274752093 No Joseph Pineda Active CHLORIDE by mouth CHLORIDE Longer Farooq DO CR 10 MEQ daily Active CPCR SPIRONOLAC 1 tablet SPIRONOLA 39036189285 No Joseph W Active TONE 25 MG by mouth CTONE Longer Farooq DO TAB daily Active METFORMIN 1 tablet METFORMIN 07277194904 No Joseph W Active HCL 500 MG by mouth HCL Longer Farooq DO TABS twice Active daily AMARYL 1 1 tab GLIMEPIRI 31881075754 No Joseph W Active MG TABS twice DE Longer Farooq DO daily Active PHENTERMIN 1 po q am PHENTERMI 22448714606 No Joseph W Active E HCL 37.5 for wt. NE HCL Longer Farooq DO MG TABS loss Active PROMETHAZI 1 tab by PROMETHAZ 71718846605 No Joseph W Active NE HCL 25 mouth INE HCL Longer Farooq DO MG TABS every 6 Active hours as needed CIPROFLOXA Take one CIPROFLOX 24402335279 No Joseph W Active DELORES HCL (1) ACIN HCL Longer Farooq DO 500 MG tablet by Active TABS mouth twice a day ABILIFY 5 one p.o. ARIPIPRAZ 86118898980 No Joseph W Active MG TABS q. day OLE Longer Farooq DO Active HYDROCHLOR 2 tabs HYDROCHLO 48575016502 No Joseph W Active OTHIAZIDE every ROTHIAZID Longer Farooq DO 25 MG TABS morning E Active ABILIFY 2 1 po q hs ARIPIPRAZ 95898622744 No Joseph W Active MG TABS for major OLE Longer Farooq DO depressio Active n ADIPEX-P 1/2 tab PHENTERMI 56957746926 No Casey Active 37.5 MG po q am NE HCL Longer [place] CAPS for Active PA weight loss CIPRO 500 1 tablet CIPROFLOX 80730105964 No Casey Active MG TAB by mouth ACIN HCL Longer [place] twice Active PA daily NECON 1/35 1 po NORETHIND 14703323422 No Casey Active (28) 1-35 daily LINDA-ETH Longer Leonarda MG-MCG ESTRADIOL Active PA TABS TRAMADOL 1 po tid TRAMADOL 94102404206 No Casey Active HCL 50 MG with ES HCL Longer [place] TABS Tylenol Active PA FLUCONAZOL one p.o. FLUCONAZO 32605617346 No Casey Active E 100 MG q. day 2 LE Longer Leonarda TABS days Active PA POTASSIUM 1 capsule POTASSIUM 51652820689 No Casey Active CHLORIDE by mouth CHLORIDE Longer Leonarda CR 10 MEQ daily Active PA CPCR IMIPRAMINE Take 6 IMIPRAMIN 73458891839 Active Joseph Pineda Active HCL 50 MG tablets E HCL Farooq DO TABS by mouth at bedtime DIFLUCAN 1 tablet FLUCONAZO 10837298521 No Joseph W Active 100 MG TAB by mouth LE Longer Farooq DO daily Active METOPROLOL 1/2 tab METOPROLO 99562777982 Active Joseph W Active TARTRATE po bid L Farooq DO 25 MG TABS TARTRATE VERAPAMIL 2 po bid VERAPAMIL 47625679820 Active Joseph Pineda Active HCL CR 120 HCL Farooq DO MG TAB CR PERMETHRIN apply PERMETHRI 40265895094 No Joseph Pineda Active 5 % CREA neck to N Longer Farooq DO toes Active tonight and then rinse off in morning. repeat at 7 days SEROQUEL one p.o. QUETIAPIN 54101854815 No Joseph W Active XR 50 MG q. E Longer Farooq DO [id number] evening FUMARATE Active TRAMADOL 1-2 TRAMADOL 62886449323 No Joseph W Active HCL 50 MG tablets HCL Longer Farooq DO TABS every 6-8 Active hours as needed for pain ALPRAZOLAM one p.o. ALPRAZOLA 98859964912 Active Joseph W Active 3 MG q.h.s. M Farooq DO [id number] ALPRAZOLAM Take 1 ALPRAZOLA 99513548007 No Joseph W Active XR tablet by M Longer Farooq DO [id number] mouth at [id number] Active bedtime DIFLUCAN 1 tablet FLUCONAZO 23068444012 No Joseph W Active 100 MG TAB by mouth MAGNO Longer Farooq DO daily Active AMBIEN 10 1 tab by ZOLPIDEM 80113046017 Active Joseph W Active MG TAB mouth at TARTRATE Farooq DO bedtime as needed for sleep DIFLUCAN 100 1 tablet DIFLUCAN 778800 FLUCONAZOLE Inactive MG TAB by mouth 100 MG TAB daily ALPRAZOLAM Take 1 ALPRAZOLAM ALPRAZOLAM Inactive XR [id number] tablet by XR [id number]-NWB mouth at [id number]-KQM bedtime TRAMADOL HCL 1-2 TRAMADOL 037075 TRAMADOL HCL Inactive 50 MG TABS tablets HCL 50 MG every 6-8 TABS hours as needed for pain SEROQUEL XR one p.o. SEROQUEL XR QUETIAPINE Inactive 50 MG q. evening 50 MG FUMARATE [id number] WA59S-EIL PERMETHRIN 5 apply neck PERMETHRIN 994972 PERMETHRIN Inactive % CREA to toes 5 % CREA tonight and then rinse off in morning. repeat at 7 days DIFLUCAN 100 1 tablet DIFLUCAN 799610 FLUCONAZOLE Inactive MG TAB by mouth 100 MG TAB daily POTASSIUM 1 capsule POTASSIUM POTASSIUM Inactive CHLORIDE CR by mouth CHLORIDE CR CHLORIDE 10 MEQ CPCR daily 10 MEQ CPCR FLUCONAZOLE one p.o. FLUCONAZOLE 19760111 FLUCONAZOLE Inactive 100 MG TABS q. day 2 100 MG TABS days TRAMADOL HCL 1 po tid TRAMADOL 156161 TRAMADOL HCL Inactive 50 MG TABS with ES HCL 50 MG Tylenol TABS NECON 1/35 1 po daily NECON 1/35 NORETHINDRONE- Inactive (28) 1-35 (28) 1-35 ETH ESTRADIOL MG-MCG TABS MG-MCG TABS CIPRO 500 MG 1 tablet CIPRO 500 550925 CIPROFLOXACIN Inactive TAB by mouth MG TAB HCL twice daily ADIPEX-P 1/2 tab po ADIPEX-P 579739 PHENTERMINE Inactive 37.5 MG CAPS q am for 37.5 MG HCL weight CAPS loss ABILIFY 2 MG 1 po q hs ABILIFY 2 461256 ARIPIPRAZOLE Inactive TABS for major MG TABS depression HYDROCHLOROT 2 tabs HYDROCHLORO 093384 HYDROCHLOROTHI Inactive HIAZIDE 25 every THIAZIDE 25 AZIDE MG TABS morning MG TABS ABILIFY 5 MG one p.o. ABILIFY 5 240216 ARIPIPRAZOLE Inactive TABS q. day MG TABS CIPROFLOXACI Take one CIPROFLOXAC 418947 CIPROFLOXACIN Inactive N HCL 500 MG (1) tablet IN HCL 500 HCL TABS by mouth MG TABS twice a day PROMETHAZINE 1 tab by PROMETHAZIN 123710 PROMETHAZINE Inactive HCL 25 MG mouth E HCL 25 MG HCL TABS every 6 TABS hours as needed PHENTERMINE 1 po q am PHENTERMINE 188145 PHENTERMINE Inactive HCL 37.5 MG for wt. HCL 37.5 MG HCL TABS loss TABS AMARYL 1 MG 1 tab AMARYL 1 MG 581510 GLIMEPIRIDE Inactive TABS twice TABS daily METFORMIN 1 tablet METFORMIN 980986 METFORMIN HCL Inactive HCL 500 MG by mouth HCL 500 MG TABS twice TABS daily SPIRONOLACTO 1 tablet SPIRONOLACT 572979 SPIRONOLACTONE Inactive NE 25 MG TAB by mouth ONE 25 MG daily TAB POTASSIUM 2 capsule POTASSIUM POTASSIUM Inactive CHLORIDE CR by mouth CHLORIDE CR CHLORIDE 10 MEQ CPCR daily 10 MEQ CPCR LISINOPRIL 1 tablet LISINOPRIL 654038 LISINOPRIL Inactive 20 MG TABS by mouth 20 MG TABS daily DIFLUCAN 100 1 tablet DIFLUCAN 228876 FLUCONAZOLE Inactive MG TABS by mouth 100 MG TABS every other day for 2 doses DIFLUCAN 100 1 tablet DIFLUCAN 104472 FLUCONAZOLE Inactive MG TAB by mouth 100 MG TAB daily x 3 days PREDNISONE 2 tablets PREDNISONE 169698 PREDNISONE Inactive 20 MG TAB today, 20 MG TAB then 1 tablet days 2-4 VYVANSE 20 1 tablet VYVANSE 20 LISDEXAMFETAMI Inactive MG ORAL CAPS daily for MG ORAL NE DIMESYLATE binge CAPS eating disorder TRAMADOL HCL 1/2 po tid TRAMADOL 297569 TRAMADOL HCL Inactive 50 MG TABS with ES HCL 50 MG Tylenol TABS prn pain AMOXICILLIN 2 po BID x AMOXICILLIN 510729 AMOXICILLIN Inactive 500 MG CAPS 10 days 500 MG CAPS PREDNISONE 2 tabs PREDNISONE 660707 PREDNISONE Inactive 20 MG TAB daily for [...] Panel - Chemistry sodium, serum 137 mmol/L 830-010 4638/08/29 potassium, serum 4.1 mmol/L 3.5-5.2 chloride, serum 100 mmol/L 98-107 carbon dioxide, venous blood 31.1 mmol/L 21.0-32.0 blood glucose 138 mg/dL 65-110 calcium, serum 9.2 mg/dL 8.5-10.1 urea nitrogen, blood 9 mg/dL 7-18 creatinine, serum 0.80 mg/dL 0.60-1.30 Lab Report: CBC, Comp. Metabolic Panel, HGBA1C - Chemistry sodium, serum 140 mmol/L 164-292 2843/04/13 potassium, serum 3.9 mmol/L 3.5-5.2 chloride, serum [...] 219 10^3/MM^3 10*3/mm3 142-424 Lab Report: Chlamydia/GC APTIMA/14590 - Lab chlamydia DNA probe NOT DETECTED NOT DETECTED Lab Report: Chlamydia/GC APTIMA/40437 - Microbiology Neisseria gonorrhoeae DNA probe NOT [...] mg/g mg/g{creat} 0-29 sodium, serum 140 mmol/L 628-302 3743/07/21 potassium, serum 3.9 mmol/L 3.5-5.2 chloride, serum [...] 142-424 Encounters Code Encounter Date Provider Facility CPT-90576 Level 3 Est. Patient Joseph Pineda [facility] 14:42:12 CDT -[facility] CPT-20384 Level 3 Est. Patient Joseph Pineda [facility] 22:18:20 CDT -[facility] CPT-46221 Level 3 Est. Patient Joseph Pineda [facility] 16:46:04 CDT -[facility] CPT-18633 Level 3 Est. Patient Joseph Pineda [facility] 15:39:53 CDT -[facility] CPT-79416 Level 3 Est. Patient Maite Sanchez MD [facility] 13:33:34 CDT -[facility] CPT-35339 Level 3 Est. Patient Joseph Pineda [facility] 11:37:08 CDT -[facility] CPT-66987 Level 3 Est. Patient Joseph Pineda [facility] 17:13:29 AUTOMOTIVE TECHNICIAN INSTRUCTOR -[facility] CPT-74778 Level 3 Est. Patient Joseph Pineda [facility] 18:42:44 CDT CPT-80294 Level 3 Est. Patient Joseph Edwin [facility] 16:25:39 CDT CPT-33842 Level 3 Est. Patient Casey Brower [facility] 09:52:45 CDT -[facility] CPT-12095 Level 3 Est. Patient Joseph Edwin [facility] 11:03:29 AUTOMOTIVE TECHNICIAN INSTRUCTOR -[facility] CPT-90641 Level 3 Est. Patient Joseph Pineda [facility] 11:03:08 AUTOMOTIVE TECHNICIAN INSTRUCTOR -[facility] CPT-32836 Level 3 Est. Patient Joseph Pineda [facility] 14:33:31 CDT -[facility] CPT-68025 Level 3 Est. Patient Joseph Pineda [facility] 17:05:02 AUTOMOTIVE TECHNICIAN INSTRUCTOR -[facility] CPT-62679 Level 3 Est. Patient Joseph Edwin [facility] 17:48:06 AUTOMOTIVE TECHNICIAN INSTRUCTOR -[facility] CPT-53883 Level 3 Est. Patient Joseph Pineda [facility] 14:59:22 AUTOMOTIVE TECHNICIAN INSTRUCTOR -[facility] CPT-35031 Level 3 Est. Patient Joseph Edwin [facility] - 21:45:56 AUTOMOTIVE TECHNICIAN INSTRUCTOR Wallace [facility] CPT-83906 Level 3 Est. Patient Joseph Pineda [facility] 21:29:50 [facility] CPT-96398 Level 3 Est. Patient Joseph Pineda [facility] 12:41:09 [facility] Procedures Code Procedure Name Date Entry Date Standard Description CPT-95702 Venipuncture Draw Fee 08:55:49 AUTOMOTIVE TECHNICIAN INSTRUCTOR
--- OUTSIDE RECORDS SUMMARY | 2016-11-20 14:07 | External Medical Summary | Clinical Summary ---
:1965 Author Organization [employer] Address [address] [place] [address] Phone Allergies, Adverse Reactions, Alerts Allergy Name Reaction Description Start Date Severity Status Provider NKDA Critical No Longer Indigo Yokum [employer] Active NKDA Critical Inactive Adrianna Elder Conditions [...] Resolved Indigo Other malaise 05/24 07/02 Yokum [employer] and fatigue SLEEP APNEA, 327.23 Active Joseph [...] Resolved Indigo Hypopotassemia MILD 10/29 07/02 Yo [employer] Diabetes, Type 250.00 Inactive Joseph Pineda Diabetes 2 06/27 06/27 Farooq DO mellitus without mention of complication, type II or unspecified type, not stated as uncontrolled Diabetes 250.02 Active Indigo Diabetes mellitus, type 06/27 [employer] mellitus II, without mention uncontrolled of complication, [...] Routine V72.31 Resolved Indigo Routine gynecological 12/14 [employer] gynecological examination examination Postmenopausal 627.1 Resolved Indigo Postmenopausal bleeding 12/14 [employer] bleeding Screening for V76.51 Resolved Indigo Screening for malignant 12/26 07/02 Youm [employer] malignant neoplasms of neoplasms of colon colon Insomnia, 307.42 Active Indigo 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 initiating or maintaining sleep Establish care V68.89 Resolved Indigo Encounters for or get 01/16 [employer] other specified acquainted administrative visit purpose Weakness, left 342.90 Active Indigo Hemiplegia, side of body 06/20 06/20 Yokum [employer] unspecified, affecting unspecified side TIA 435.9 Active Indigo Unspecified 06/20 07/02 Yokum [employer] transient cerebral ischemia Knee pain, 719.46 Active Indigo Pain in joint bilateral 06/20 [employer] involving lower leg Bronchitis 490 Active Jillina Bronchitis, not 07/23 07/23 Frazell specified as [employer] acute or chronic Diabetes 357.2 Active Maliheh Polyneuropathy mellitus, 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y ABNORMAL VAGINAL ICD-626.9 Inactive Maite Matt Sanchez BLEEDING PhD SCABIES ICD-133.0 Inactive Maite C Laura PhD FATIGUE ICD-780.79 Inactive Indigo Jordanum [employer] OTH GENERAL ICD-V70.3 Inactive Maite Sanchez MEDICAL MD PhD EXAMINATION ADMIN PURPOSES OTHER ABNORMAL ICD-790.29 Inactive Maite Matt Sanchez GLUCOSE MD PhD ACUTE BRONCHITIS ICD-466.0 Inactive Maite Sanchez PhD HYPOKALEMIA, MILD ICD-276.8 Inactive Indigo Jordanum [employer] Sinusitis, ICD-461.1 Inactive Ismael Coyne frontal, acute Amandeep ONEAL Laryngitis, acute ICD-464.00 Inactive Ismael Coyne Amandeep ONEAL Routine ICD-V72.31 Inactive Indigo Yokum gynecological [employer] examination Postmenopausal ICD-627.1 Inactive Indigo Yokum 2015 bleeding [employer] Screening for ICD-V76.51 Inactive Indigo Yokum 2015 malignant [employer] neoplasms of colon Establish care or ICD-V68.89 Inactive Indigo Yokum get acquainted [employer] visit Medication List Medication Instructions Start Stop Generic NDC Status Provider Patient Date Date Name Instruction TROKENDI XR 2 tab TOPIRAMATE 13616120300 Active Maliheh Active 100 MG ORAL daily Ziglari [id number] 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 METOPROLOL 1 tab po METOPROLOL 13187889387 Active Sherice Wilfredo Active TARTRATE 25 MG bid TARTRATE RMA TABS AZITHROMYCIN 2 po qd x 2 AZITHROMYCIN 71566451443 No Jillina Active 250 MG TABS 1 day, 0 Longer Frazell then 1 po 1 Active [employer] qd x 4 6 days / 0 3 / 2 6 PREDNISONE 20 2 pills 2 PREDNISONE 97437254517 No Jillina Active MG TAB daily x 4 0 Longer Frazell days 1 Active [employer] 6 / 0 3 / 5 PIOGLITAZONE take one PIOGLITAZONE 86610074833 Active Maliheh Active HCL 30 MG ORAL a day HCL Ziglari TABS 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 JANUVIA 100 MG 1 tablet 2 SITAGLIPTIN 43181292589 No Indigo Active TABS by mouth 0 PHOSPHATE Longer Yokum daily 1 Active [employer] 6 / 0 2 / 6 ATORVASTATIN 1 pill by ATORVASTATIN 10488755281 Active Indigo Active CALCIUM 10 MG mouth CALCIUM Yokum TABS nightly, [employer] for cholester ol ASPIRIN 81 MG 1 po qd ASPIRIN 84279806930 Active Indigo Active ORAL TABS Yokum [employer] NITROFURANTOIN One 2 NITROFURANTOIN 97049816279 No Indigo Active MONOHYD MACRO capsule 0 MONOHYD MACRO Longer Yokum 100 MG CAPS BID for 1 Active [employer] UTI 6 / 0 2 / 3 METFORMIN HCL 2 tablets METFORMIN HCL 16294735926 Active Indigo Active 500 MG TB24 by mouth Yokum twice [employer] daily TRAMADOL HCL 1/2 po 2 TRAMADOL HCL 01208873693 No Jillina Active 50 MG TABS tid with 0 Longer Frazell ES 1 Active [employer] Tylenol 5 prn pain / 0 8 / 2 VYVANSE 20 MG 1 tablet 2 LISDEXAMFETAMI 91048394696 No Jillina Active ORAL CAPS daily for 0 NE DIMESYLATE Longer Frazell binge 1 Active [employer] eating 5 disorder / 0 2 LASIX 20 MG 2 tablet FUROSEMIDE 42021931812 Active Indigo Active TAB by mouth Yokum daily [employer] CELEBREX 200 1 tablet CELECOXIB 84484247154 Active Indigo Active MG CAPS by mouth Yokum daily [employer] with meals PREDNISONE 20 2 tablets 2 PREDNISONE 24718049876 No Joseph W Active MG TAB today, 0 Longer Farooq DO then 1 1 Active tablet 5 days 2-4 / 0 3 DIFLUCAN 100 1 tablet 2 FLUCONAZOLE 13794557373 No Joseph W Active MG TAB by mouth 0 Longer Farooq DO daily x 3 1 Active days 5 / 0 3 AMARYL 1 MG 1 tablet GLIMEPIRIDE 93443037765 Active Joseph W Active ORAL TABS orally Farooq DO twice daily DIFLUCAN 100 1 tablet 2 FLUCONAZOLE 10392555968 No Joseph W Active MG TABS by mouth 0 Longer Farooq DO every 1 Active other day 5 for 2 / doses 0 1 / 2 3 ZOFRAN 4 MG 1 po q6hr ONDANSETRON 56919384426 Active Joseph W Active TABS PRN HCL Farooq DO Nausea PREDNISONE 20 2 tabs 2 PREDNISONE 34421609481 No Joseph W Active MG TAB daily for 0 Longer Farooq DO 3 days, 1 1 Active tab daily 4 for 3 / days, 1/2 1 tab daily 0 for 2 / days 2 5 AMOXICILLIN 2 po BID 2 AMOXICILLIN 25948453855 No Maite C Active 500 MG CAPS x 10 days 0 Longer Laura ONEAL 1 Active PhD 0 / 2 0 LISINOPRIL 20 1 tablet 2 LISINOPRIL 53571776765 No Maite C Active MG TABS by mouth 0 Longer Laura MD daily 1 Active PhD 4 0 / 1 0 POTASSIUM 2 capsule 2 POTASSIUM 47743075622 No Joseph W Active CHLORIDE CR 10 by mouth 0 CHLORIDE Longer Farooq DO MEQ CPCR daily 1 Active 0 8 / 2 9 SPIRONOLACTONE 1 tablet 2 SPIRONOLACTONE 19759910559 No Joseph W Active 25 MG TAB by mouth 0 Longer Farooq DO daily 1 Active 4 / 0 8 / 2 9 METFORMIN HCL 1 tablet 2 METFORMIN HCL 14070788047 No Joseph W Active 500 MG TABS by mouth 0 Longer Farooq DO twice 1 Active daily 4 / 0 8 / 2 9 AMARYL 1 MG 1 tab 2 GLIMEPIRIDE 60995667730 No Joseph W Active TABS twice 0 Longer Farooq DO daily 1 Active 4 / 0 8 / 2 9 PHENTERMINE 1 po q am 2 PHENTERMINE 97003946575 No Joseph W Active HCL 37.5 MG for wt. 0 HCL Longer Farooq DO TABS loss 1 Active 3 / 1 2 / 2 3 PROMETHAZINE 1 tab by 2 PROMETHAZINE 32462120916 No Joseph W Active HCL 25 MG TABS mouth 0 HCL Longer Farooq DO every 6 1 Active hours as 3 needed / 0 9 / 0 9 CIPROFLOXACIN Take one 2 CIPROFLOXACIN 70318853800 No Joseph W Active HCL 500 MG (1) 0 HCL Longer Farooq DO TABS tablet by 1 Active mouth 3 twice a / day 0 9 / 0 9 ABILIFY 5 MG one p.o. 2 ARIPIPRAZOLE 27926321015 No Joseph W Active TABS q. day 0 Longer Farooq DO 1 Active 3 / 0 9 / 0 9 HYDROCHLOROTHI 2 tabs 2 HYDROCHLOROTHI 81581616325 No Joseph W Active AZIDE 25 MG every 0 AZIDE Longer Farooq DO TABS morning 1 Active 3 / 0 6 / 2 7 ABILIFY 2 MG 1 po q hs 2 ARIPIPRAZOLE 99632071352 No Joseph W Active TABS for major 0 Longer Farooq DO depressio 1 Active n 3 / 0 5 / 0 7 ADIPEX-P 37.5 1/2 tab 2 PHENTERMINE 30634482812 No Casey Active MG CAPS po q am 0 HCL Longer [place] PA for 1 Active weight 3 loss / 0 5 / 0 1 CIPRO 500 MG 1 tablet 2 CIPROFLOXACIN 30871420775 No Casey Active TAB by mouth 0 HCL Longer [place] PA twice 1 Active daily 3 / 0 5 / 0 1 NECON 1 po 2 NORETHINDRONE- 37274299016 No Casey Active (28) 1-35 daily 0 ETH ESTRADIOL Longer [place] PA MG-MCG TABS 1 Active 3 / 0 5 / 0 1 TRAMADOL HCL 1 po tid 2 TRAMADOL HCL 31735645453 No Casey Active 50 MG TABS with ES 0 Longer [facility] Tylenol 1 Active 3 / 0 5 / 0 1 FLUCONAZOLE one p.o. 2 FLUCONAZOLE 56936016587 No Casey Active 100 MG TABS q. day 2 0 Longer [facility] days 1 Active 3 / 0 5 / 0 1 POTASSIUM 1 capsule 2 POTASSIUM 43957974445 No Casey Active CHLORIDE CR 10 by mouth 0 CHLORIDE Longer [facility] MEQ CPCR daily 1 Active 3 / 0 5 / 0 1 IMIPRAMINE HCL Take 6 IMIPRAMINE HCL 89835278971 Active Joseph W Active 50 MG TABS tablets Farooq DO by mouth at bedtime DIFLUCAN 100 1 tablet 2 FLUCONAZOLE 81529253877 No Joseph W Active MG TAB by mouth 0 Longer Farooq DO daily 1 Active 2 / 0 2 / 2 4 VERAPAMIL HCL 2 po bid VERAPAMIL HCL 77675406598 Active Joseph W Active CR 120 MG TAB Farooq DO CR PERMETHRIN 5 % apply 2 PERMETHRIN 82043569032 No Joseph W Active CREA neck to 0 Longer Farooq DO toes 1 Active tonight 2 and then / rinse off 0 in 1 morning. / repeat 2 at 7 days 0 SEROQUEL XR 50 one p.o. 2 QUETIAPINE 69436227723 No Joseph W Active MG [id number] q. 0 FUMARATE Longer Farooq DO evening 1 Active 2 / 0 1 / 2 0 TRAMADOL HCL 1-2 2 TRAMADOL HCL 89643743532 No Joseph W Active 50 MG TABS tablets 0 Longer Farooq DO every 6-8 1 Active hours as 2 needed / for pain 0 1 / 2 0 ALPRAZOLAM 3 one p.o. ALPRAZOLAM 37069189422 Active Indigo Active MG [id number] q.h.s. Yokum [employer] ALPRAZOLAM XR Take 1 2 ALPRAZOLAM 13345432233 No Joseph W Active [id number] tablet by 0 [id number] Longer Farooq DO mouth at 1 Active bedtime 1 / 2 9 DIFLUCAN 100 1 tablet 2 FLUCONAZOLE 04657729924 No Joseph W Active MG TAB by mouth 0 Longer Farooq DO daily 1 Active 0 / 0 6 AMBIEN 10 MG 1 tab by ZOLPIDEM 25103253243 Active Afsaneh Active TAB mouth at TARTRATE Gericke, bedtime MA as needed for sleep DIFLUCAN 100 1 tablet DIFLUCAN 299970 FLUCONAZOLE Inactive MG TAB by mouth 100 MG TAB daily ALPRAZOLAM Take 1 ALPRAZOLAM ALPRAZOLAM Inactive XR [id number] tablet by XR [id number] mouth at [id number] bedtime TRAMADOL HCL 1-2 TRAMADOL 598971 TRAMADOL HCL Inactive 50 MG TABS tablets HCL 50 MG every 6-8 TABS hours as needed for pain SEROQUEL XR one p.o. SEROQUEL XR QUETIAPINE Inactive 50 MG q. 50 MG FUMARATE [id number] evening [id number] PERMETHRIN 5 apply PERMETHRIN 189539 PERMETHRIN Inactive % CREA neck to 5 [...] days TRAMADOL HCL 1 po tid TRAMADOL 209552 TRAMADOL HCL Inactive 50 MG TABS with ES HCL 50 MG Tylenol TABS NECON 1 po NECON 1/35 NORETHINDRONE- Inactive (28) 1-35 daily (28) 1-35 ETH ESTRADIOL MG-MCG TABS MG-MCG TABS CIPRO 500 MG 1 tablet CIPRO 500 721778 CIPROFLOXACIN Inactive TAB by mouth MG TAB HCL twice daily ADIPEX-P 1/2 tab ADIPEX-P 407424 PHENTERMINE Inactive 37.5 MG CAPS po q am 37.5 MG HCL for CAPS weight loss ABILIFY 2 MG 1 po q hs ABILIFY 2 434171 ARIPIPRAZOLE Inactive TABS for major MG TABS depressio n HYDROCHLOROT 2 tabs HYDROCHLORO 870905 HYDROCHLOROTHI Inactive HIAZIDE 25 every THIAZIDE 25 AZIDE MG TABS morning MG TABS ABILIFY 5 MG one p.o. ABILIFY 5 592687 ARIPIPRAZOLE Inactive TABS q. day MG TABS CIPROFLOXACI Take one CIPROFLOXAC 154337 CIPROFLOXACIN Inactive N HCL 500 MG (1) IN HCL 500 HCL TABS tablet by MG TABS mouth twice a day PROMETHAZINE 1 tab by PROMETHAZIN 558962 PROMETHAZINE Inactive HCL 25 MG mouth E HCL 25 MG HCL TABS every 6 TABS hours as needed PHENTERMINE 1 po q am PHENTERMINE 531781 PHENTERMINE Inactive HCL 37.5 MG for wt. HCL 37.5 MG HCL TABS loss TABS AMARYL 1 MG 1 tab AMARYL 1 MG 946587 GLIMEPIRIDE Inactive TABS twice TABS daily METFORMIN 1 tablet METFORMIN 546152 METFORMIN HCL Inactive HCL 500 MG by mouth HCL 500 MG TABS twice TABS daily SPIRONOLACTO 1 tablet SPIRONOLACT 796924 SPIRONOLACTONE Inactive NE 25 MG TAB by mouth ONE 25 MG daily TAB POTASSIUM 2 capsule POTASSIUM POTASSIUM Inactive CHLORIDE CR by mouth CHLORIDE CR CHLORIDE 10 MEQ CPCR daily 10 MEQ CPCR LISINOPRIL 1 tablet LISINOPRIL 753531 LISINOPRIL Inactive 20 MG TABS by mouth 20 MG TABS daily DIFLUCAN 100 1 tablet DIFLUCAN 971638 FLUCONAZOLE Inactive MG TABS by mouth 100 MG TABS every other day for 2 doses DIFLUCAN 100 1 tablet DIFLUCAN 040772 FLUCONAZOLE Inactive MG TAB by mouth 100 MG TAB daily x 3 days PREDNISONE 2 tablets PREDNISONE 462617 PREDNISONE Inactive 20 MG TAB today, 20 MG TAB then 1 tablet days 2-4 VYVANSE 20 1 tablet VYVANSE 20 LISDEXAMFETAMI Inactive MG ORAL CAPS daily for MG ORAL NE DIMESYLATE binge CAPS eating disorder TRAMADOL HCL 1/2 po TRAMADOL 926152 TRAMADOL HCL Inactive 50 MG TABS tid with HCL 50 MG ES TABS Tylenol prn pain JANUVIA 100 1 tablet JANUVIA 100 SITAGLIPTIN Inactive MG TABS by mouth MG TABS PHOSPHATE daily AMOXICILLIN 2 po BID AMOXICILLIN 492964 AMOXICILLIN Inactive 500 MG CAPS x 10 days 500 MG CAPS PREDNISONE 2 tabs PREDNISONE 923245 PREDNISONE Inactive 20 MG TAB daily for 20 MG TAB 3 days, 1 tab daily for 3 days, 1/2 tab daily for 2 days NITROFURANTO One NITROFURANT 1192772 NITROFURANTOIN Inactive IN MONOHYD capsule OIN MONOHYD MONOHYD MACRO MACRO 100 MG BID for MACRO 100 CAPS UTI MG CAPS PREDNISONE 2 pills PREDNISONE 572718 PREDNISONE Inactive 20 MG TAB daily x 4 20 MG TAB days AZITHROMYCIN 2 po qd x AZITHROMYCI 2536306 AZITHROMYCIN Inactive 250 MG TABS 1 day, [...] HGBA1C - Chemistry sodium, serum 140 mmol/L 979-596 8257/06/03 potassium, serum 3.9 mmol/L 3.5-5.2 chloride, serum [...] 198 10^3/MM^3 10*3/mm3 142-424 Lab Report: Chlamydia/GC APTIMA/[id number] - Lab chlamydia DNA probe NOT DETECTED NOT DETECTED Lab Report: Chlamydia/GC APTIMA/01627 - Microbiology Neisseria gonorrhoeae DNA probe NOT DETECTED NOT DETECTED Lab Report: Comp. Metabolic Panel, Lipid Panel - Chemistry sodium, serum 136 mmol/L 355-536 1313/01/04 carbon dioxide, venous blood 27.0 mmol/L 21.0-32.0 potassium, serum 4.6 mmol/L 3.5-5.2 chloride, serum 98 mmol/L 98-107 blood glucose 174 mg/dL 65-110 urea nitrogen, blood 12 mg/dL 7-18 creatinine, serum 0.78 mg/dL 0.55-1.30 alanine aminotransferase (SGPT), serum 65 U/L 12-78 aspartate aminotransferase (SGOT), serum 34 U/L 15-37 calcium, serum 8.9 mg/dL 8.5-10.1 bilirubin, serum, total 0.40 mg/dL 0.00-1.00 cholesterol, serum 219 mg/dL 921-675 1863/01/04 triglyceride, serum, fasting 214 mg/dL 30-200 HDL [...] mg/g mg/g{creat} 0-29 sodium, serum 140 mmol/L 783-811 2212/07/21 potassium, serum 3.9 mmol/L 3.5-5.2 chloride, serum [...] Yes Encounters Code Encounter Date Provider Facility CPT-60084 Level 3 Est. Patient [facility] 08:58:07 CDT [facility] CPT-08371 Level 3 Est. Patient Faby Marino [facility] 14:40:56 CDT [facility] CPT-45721 Level 4 Est. Patient [facility] 17:29:53 GLOBAL RISK MANAGEMENT DIRECTOR [facility] CPT-57548 Level 4 Est. Patient Indigo Carlie [facility] 09:51:54 GLOBAL RISK MANAGEMENT DIRECTOR CPT-47447 Level 3 Est. Patient Indigo Sexton [facility] 18:59:38 CDT CPT-23290 Level 3 Est. Patient Joseph W [facility] 14:42:12 CDT [facility] CPT-00489 Level 3 Est. Patient Joseph Edwin [facility] 22:18:20 CDT [facility] CPT-48566 Level 3 Est. Patient Joseph Edwin [facility] 16:46:04 CDT [facility] CPT-87689 Level 3 Est. Patient [place] [facility] 15:39:53 CDT -[facility] CPT-12368 Level 3 Est. Patient Maite Sanchez MD [facility] 13:33:34 CDT -[facility] CPT-64124 Level 3 Est. Patient [facility] 11:37:08 CDT -[facility] CPT-35439 Level 3 Est. Patient [place] [facility] 17:13:29 GLOBAL RISK MANAGEMENT DIRECTOR -[facility] CPT-46916 Level 3 Est. Patient [facility] 18:42:44 CDT CPT-40484 Level 3 Est. Patient [place] [facility] 16:25:39 CDT CPT-16800 Level 3 Est. Patient Casey Brower [facility] 09:52:45 CDT -[facility] CPT-87233 Level 3 Est. Patient Joseph Edwin [facility] 11:03:29 GLOBAL RISK MANAGEMENT DIRECTOR -[facility] CPT-82393 Level 3 Est. Patient Joseph [facility] 11:03:08 GLOBAL RISK MANAGEMENT DIRECTOR -[facility] CPT-62442 Level 3 Est. Patient [place] [facility] 14:33:31 CDT -[facility] CPT-89584 Level 3 Est. Patient [facility] 17:05:02 GLOBAL RISK MANAGEMENT DIRECTOR -[facility] CPT-15776 Level 3 Est. Patient [facility] 17:48:06 GLOBAL RISK MANAGEMENT DIRECTOR -[facility] CPT-98086 Level 3 Est. Patient [facility] 14:59:22 GLOBAL RISK MANAGEMENT DIRECTOR -[facility] CPT-61881 Level 3 Est. Patient Joseph Pineda [facility] - 21:45:56 GLOBAL RISK MANAGEMENT DIRECTOR Jose [facility] CPT-41670 Level 3 Est. Patient Joseph Pineda [facility] 21:29:50 CDT -[facility] CPT-30968 Level 3 Est. Patient Joseph Pineda [facility] 12:41:09 CDT -[facility] Procedures Code Procedure Name Date Entry Date Standard Description CPT-07247 Chest 2V Frontal and Lat 14:47:43 CDT CPT-JTINJ Asp/Joint Injection 09:51:53 GLOBAL RISK MANAGEMENT DIRECTOR CPT-OV Office Visit 17:39:05 CDT CPT-OV Office Visit 15:19:50 CDT CPT-69698 Sono transvag pelvis non OB uterus ovaries cervix 18:04:34 CDT CPT-90098 Venipuncture Draw Fee 08:55:49 GLOBAL RISK MANAGEMENT DIRECTOR
--- OUTSIDE RECORDS SUMMARY | 2016-11-20 14:07 | External Medical Summary | Clinical Summary ---
:1965 Author Organization [employer] Address [address] [place] [address] Phone Allergies, Adverse Reactions, Alerts Allergy Name Reaction Description Start Date Severity Status Provider NKDA Critical No Longer Indigo Yokum PATIENT APPOINTMENT COORDINATOR Active NKDA Critical Inactive Adrianna Elder [...] Resolved Indigo Other malaise 05/24 07/02 Yokum PATIENT APPOINTMENT COORDINATOR and fatigue SLEEP APNEA, 327.23 Active [...] Resolved Indigo Hypopotassemia MILD 10/29 07/02 Yo PATIENT APPOINTMENT COORDINATOR Diabetes, Type 250.00 Inactive Joseph Pineda Diabetes 2 06/27 06/27 Farooq DO mellitus without mention of complication, type II or unspecified type, not stated as uncontrolled Diabetes 250.02 Active Indigo Diabetes mellitus, type 06/27um PATIENT APPOINTMENT COORDINATOR mellitus II, without mention uncontrolled of complication, [...] Resolved Indigo Routine gynecological 12/14 07/02 Yo PATIENT APPOINTMENT COORDINATOR gynecological examination examination Postmenopausal 627.1 Resolved Indigo Postmenopausal bleeding 12/14 07/02 Youm PATIENT APPOINTMENT COORDINATOR bleeding Screening for V76.51 Resolved Indigo Screening for malignant 12/26 07/02 Yokum PATIENT APPOINTMENT COORDINATOR malignant neoplasms of neoplasms of colon colon Insomnia, 307.42 Active Indigo 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 PATIENT APPOINTMENT COORDINATOR disorder of initiating or maintaining sleep Establish care V68.89 Resolved Indigo Encounters for or get 01/16 07/02 Yo PATIENT APPOINTMENT COORDINATOR other specified acquainted administrative visit purpose Weakness, left 342.90 Active Indigo Hemiplegia, side of body 06/20 06/20 Yokum PATIENT APPOINTMENT COORDINATOR unspecified, affecting unspecified side TIA 435.9 Active Indigo Unspecified 06/20 07/02 Yokum PATIENT APPOINTMENT COORDINATOR transient cerebral ischemia Knee pain, 719.46 Active Indigo Pain in joint bilateral 06/20 07/02 Yokum PATIENT APPOINTMENT COORDINATOR involving lower leg Bronchitis 490 Active Jillina Bronchitis, not 07/23 07/23 Frazell specified as PATIENT APPOINTMENT COORDINATOR acute or chronic ABNORMAL VAGINAL ICD-626.9 Inactive Maite Matt Sanchez BLEEDING PhD SCABIES ICD-133.0 Inactive Maite C Laura MD PhD FATIGUE ICD-780.79 Inactive Indigo Yokum PATIENT APPOINTMENT COORDINATOR OTH GENERAL ICD-V70.3 Inactive Maite C Laura MEDICAL MD PhD EXAMINATION ADMIN PURPOSES OTHER ABNORMAL ICD-790.29 Inactive Maite C Laura GLUCOSE MD PhD ACUTE BRONCHITIS ICD-466.0 Inactive Maite C Laura PhD HYPOKALEMIA, MILD ICD-276.8 Inactive Indigo Yokum PATIENT APPOINTMENT COORDINATOR Sinusitis, ICD-461.1 Inactive Ismael Coyne frontal, acute Amandeep ONEAL Laryngitis, acute ICD-464.00 Inactive Ismael Coyne Amandeep ONEAL Routine ICD-V72.31 Inactive Indigo Yokum gynecological PATIENT APPOINTMENT COORDINATOR examination Postmenopausal ICD-627.1 Inactive Indigo Yokum 2015 bleeding PATIENT APPOINTMENT COORDINATOR Screening for ICD-V76.51 Inactive Indigo Yokum 2015 malignant PATIENT APPOINTMENT COORDINATOR neoplasms of colon Establish care or ICD-V68.89 Inactive Indigo Yokum get acquainted PATIENT APPOINTMENT COORDINATOR visit Medication List Medication Instructions Start Stop Generic NDC Status Provider Patient Date Date Name Instruction AZITHROMYCIN 2 po AZITHROMYCIN 75359624331 Active Jillina Active 250 MG TABS qd x Frazell 1 PATIENT APPOINTMENT COORDINATOR day, then 1 po qd x 4 days PREDNISONE 20 2 PREDNISONE 36338943226 Active Jillina Active MG TAB pills Frazell daily PATIENT APPOINTMENT COORDINATOR x 4 days PIOGLITAZONE take PIOGLITAZONE 68825143426 Active Maliheh Active HCL 30 MG one a HCL Ziglari ORAL TABS day [employer]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 JANUVIA 100 1 SITAGLIPTIN 05493527191 No Indigo Active MG TABS table PHOSPHATE Longer Yokum t by Active PATIENT APPOINTMENT COORDINATOR mouth daily ATORVASTATIN 1 ATORVASTATIN 37926518524 Active Indigo Active CALCIUM 10 MG pill CALCIUM [facility] TABS by PATIENT APPOINTMENT COORDINATOR mouth night ly, for lavelle stero l TROKENDI XR 1 tab TOPIRAMATE 59762666505 Active Indigo Active 100 MG ORAL daily Yokum [id number] PATIENT APPOINTMENT COORDINATOR ASPIRIN 81 MG 1 po ASPIRIN 65173845107 Active Indigo Active ORAL TABS qd Yokum PATIENT APPOINTMENT COORDINATOR NITROFURANTOI One NITROFURANTOI 30157840397 No Indigo Active N MONOHYD capsu N MONOHYD Longer Yokum MACRO 100 MG le MACRO Active PATIENT APPOINTMENT COORDINATOR CAPS BID for UTI METFORMIN HCL 2 METFORMIN HCL 68179954169 Active Indigo Active 500 MG TB24 table [facility]okum ts by PATIENT APPOINTMENT COORDINATOR mouth twice daily TRAMADOL HCL 1/2 TRAMADOL HCL 79626575037 No Jillina Active 50 MG TABS po Longer Frazell tid Active PATIENT APPOINTMENT COORDINATOR with ES Tylen ol prn pain VYVANSE 20 MG 1 LISDEXAMFETAM 92275403770 No Jillina Active ORAL CAPS table INE Longer Frazell t DIMESYLATE Active PATIENT APPOINTMENT COORDINATOR daily for binge eatin g disor janiya LASIX 20 MG 2 FUROSEMIDE 20960448215 Active Joseph W Active TAB table Farooq DO t by mouth daily CELEBREX 200 1 CELECOXIB 65430211790 Active Joseph W Active MG CAPS table Farooq DO t by mouth daily with meals PREDNISONE 20 2 PREDNISONE 20938515530 No Joseph W Active MG TAB table Longer Farooq DO ts Active today , then 1 table t days 2-4 DIFLUCAN 100 1 FLUCONAZOLE 41747250451 No Joseph W Active MG TAB table Longer Farooq DO t by Active mouth daily x 3 days AMARYL 1 MG 1 GLIMEPIRIDE 19149677508 Active Joseph W Active ORAL TABS table Farooq DO t orall y twice daily DIFLUCAN 100 1 FLUCONAZOLE 74198417167 No Joseph W Active MG TABS table Longer Farooq DO t by Active mouth every other day for 2 doses ZOFRAN 4 MG 1 po ONDANSETRON 26917965987 Active Joseph Pineda Active TABS q6hr HCL Farooq DO PRN Nause a PREDNISONE 20 2 PREDNISONE 72474887302 No Joseph Pineda Active MG TAB tabs Longer Farooq DO daily Active for 3 days, 1 tab daily for 3 days, 1/2 tab daily for 2 days AMOXICILLIN 2 po AMOXICILLIN 56092680560 No Maite C Active 500 MG CAPS BID x Longer Madril 10 Active PhD days LISINOPRIL 20 1 LISINOPRIL 59322585143 No Maite C Active MG TABS table Longer Madril t by Active PhD mouth chilo y POTASSIUM 2 POTASSIUM 27982452744 No Joseph Pineda Active CHLORIDE CR capsu CHLORIDE Longer Farooq DO 10 MEQ CPCR le by Active mouth daily SPIRONOLACTON 1 SPIRONOLACTON 89580564466 No Joseph Pineda Active E 25 MG TAB table E Longer Farooq DO t by Active mouth daily METFORMIN HCL 1 METFORMIN HCL 92365295812 No Joseph Pineda Active 500 MG TABS table Longer Farooq DO t by Active mouth twice daily AMARYL 1 MG 1 tab GLIMEPIRIDE 43828032167 No Joseph Pineda Active TABS twice Longer Farooq DO daily Active PHENTERMINE 1 po PHENTERMINE 96965545559 No Joseph W Active HCL 37.5 MG q am HCL Longer Farooq DO TABS for Active wt. loss PROMETHAZINE 1 tab PROMETHAZINE 30703670604 No Joseph W Active HCL 25 MG by HCL Longer Farooq DO TABS mouth Active every 6 hours as neede d CIPROFLOXACIN Take CIPROFLOXACIN 33358674325 No Joseph W Active HCL 500 MG one HCL Longer Farooq DO TABS (1) Active table t by mouth twice a day ABILIFY 5 MG one ARIPIPRAZOLE 45152160629 No Joseph W Active TABS p.o. Longer Farooq DO q. Active day HYDROCHLOROTH 2 HYDROCHLOROTH 59123999023 No Joseph W Active IAZIDE 25 MG tabs IAZIDE Longer Farooq DO TABS every Active morni ng ABILIFY 2 MG 1 po ARIPIPRAZOLE 92307705070 No Joseph W Active TABS q hs Longer Farooq DO for Active major depre ssion ADIPEX-P 37.5 / PHENTERMINE 54479691137 No Casey Active MG CAPS tab HCL Longer Leonarda po q Active PA am for weigh t loss CIPRO 500 MG 1 CIPROFLOXACIN 55971346667 No Casey Active TAB table HCL Longer [place] t by Active PA mouth twice daily NECON 35 1 po NORETHINDRONE 42168789625 No Casey Active (28) 1-35 daily -ETH Longer [place] MG-MCG TABS ESTRADIOL Active PA TRAMADOL HCL 1 po TRAMADOL HCL 83387742153 No Casey Active 50 MG TABS tid Longer Leonarda with Active PA ES Tylen ol FLUCONAZOLE one FLUCONAZOLE 16241637328 No Casey Active 100 MG TABS p.o. Longer [place] q. Active PA day 2 days POTASSIUM 1 POTASSIUM 63448137110 No Casey Active CHLORIDE CR capsu CHLORIDE Longer Leonarda 10 MEQ CPCR le by Active PA mouth daily IMIPRAMINE Take IMIPRAMINE 22889330382 Active Joseph W Active HCL 50 MG 6 HCL Farooq DO TABS table ts by mouth at bedti me DIFLUCAN 100 1 FLUCONAZOLE 98859836812 No Joseph W Active MG TAB table Longer Farooq DO t by Active mouth daily METOPROLOL 1/2 METOPROLOL 46897693441 Active Joseph W Active TARTRATE 25 tab TARTRATE Farooq DO MG TABS po bid VERAPAMIL HCL 2 po VERAPAMIL HCL 96185905312 Active Joseph W Active CR 120 MG TAB bid Farooq DO CR PERMETHRIN 5 apply PERMETHRIN 23162367396 No Joseph W Active % CREA neck Longer Farooq DO to Active toes tonig ht and then rinse off in morni ng. repea t at 7 days SEROQUEL XR one QUETIAPINE 76102154975 No Joseph W Active 50 MG p.o. FUMARATE Longer Farooq DO [id number] q. Active eveni ng TRAMADOL HCL 1-2 TRAMADOL HCL 31192012011 No Joseph W Active 50 MG TABS table Longer Farooq DO ts Active every 6-8 hours as neede d for pain ALPRAZOLAM 3 one ALPRAZOLAM 68460293868 Active Indigo Active MG [id number] p.o. [employer] q.h.s PATIENT APPOINTMENT COORDINATOR . ALPRAZOLAM XR Take ALPRAZOLAM 87726517704 No Joseph W Active [id number] 1 [id number] Longer Farooq DO table Active t by mouth at bedti me DIFLUCAN 100 1 FLUCONAZOLE 80802313010 No Joseph W Active MG TAB table Longer Farooq DO t by Active mouth daily AMBIEN 10 MG 1 tab ZOLPIDEM 38290292620 Active Afsaneh Active TAB by TARTRATE Gericke, mouth MA at bedti me as neede d for sleep DIFLUCAN 100 1 tablet DIFLUCAN 028929 FLUCONAZOLE Inactive MG TAB by mouth 100 MG TAB daily ALPRAZOLAM Take 1 ALPRAZOLAM ALPRAZOLAM Inactive XR [id number] tablet by XR [id number] mouth at [id number] bedtime TRAMADOL HCL 1-2 TRAMADOL 347613 TRAMADOL HCL Inactive 50 MG TABS tablets HCL 50 MG every 6-8 TABS hours as needed for pain SEROQUEL XR one p.o. SEROQUEL XR QUETIAPINE Inactive 50 MG q. 50 MG FUMARATE [id number] evening [id number] PERMETHRIN 5 apply PERMETHRIN 971558 PERMETHRIN Inactive % CREA neck to 5 % CREA toes tonight and then rinse off in morning. repeat at 7 days DIFLUCAN 100 1 tablet DIFLUCAN 279861 FLUCONAZOLE Inactive MG TAB by mouth 100 MG TAB daily POTASSIUM 1 capsule POTASSIUM POTASSIUM Inactive CHLORIDE CR by mouth CHLORIDE CR CHLORIDE 10 MEQ CPCR daily 10 MEQ CPCR FLUCONAZOLE one p.o. FLUCONAZOLE 19760111 FLUCONAZOLE Inactive 100 MG TABS q. day 2 100 MG TABS days TRAMADOL HCL 1 po tid TRAMADOL 684126 TRAMADOL HCL Inactive 50 MG TABS with ES HCL 50 MG Tylenol TABS NECON 1/35 1 po NECON 1/35 NORETHINDRONE- Inactive (28) 1-35 daily (28) 1-35 ETH ESTRADIOL MG-MCG TABS MG-MCG TABS CIPRO 500 MG 1 tablet CIPRO 500 939784 CIPROFLOXACIN Inactive TAB by mouth MG TAB HCL twice daily ADIPEX-P 1/2 tab ADIPEX-P 151894 PHENTERMINE Inactive 37.5 MG CAPS po q am 37.5 MG HCL for CAPS weight loss ABILIFY 2 MG 1 po q hs ABILIFY 2 815360 ARIPIPRAZOLE Inactive TABS for major MG TABS depressio n HYDROCHLOROT 2 tabs HYDROCHLORO 428508 HYDROCHLOROTHI Inactive HIAZIDE 25 every THIAZIDE 25 AZIDE MG TABS morning MG TABS ABILIFY 5 MG one p.o. ABILIFY 5 078014 ARIPIPRAZOLE Inactive TABS q. day MG TABS CIPROFLOXACI Take one CIPROFLOXAC 904754 CIPROFLOXACIN Inactive N HCL 500 MG (1) IN HCL 500 HCL TABS tablet by MG TABS mouth twice a day PROMETHAZINE 1 tab by PROMETHAZIN 796865 PROMETHAZINE Inactive HCL 25 MG mouth E HCL 25 MG HCL TABS every 6 TABS hours as needed PHENTERMINE 1 po q am PHENTERMINE 807022 PHENTERMINE Inactive HCL 37.5 MG for wt. HCL 37.5 MG HCL TABS loss TABS AMARYL 1 MG 1 tab AMARYL 1 MG 629245 GLIMEPIRIDE Inactive TABS twice TABS daily METFORMIN 1 tablet METFORMIN 377122 METFORMIN HCL Inactive HCL 500 MG by mouth HCL 500 MG TABS twice TABS daily SPIRONOLACTO 1 tablet SPIRONOLACT 092938 SPIRONOLACTONE Inactive NE 25 MG TAB by mouth ONE 25 MG daily TAB POTASSIUM 2 capsule POTASSIUM POTASSIUM Inactive CHLORIDE CR by mouth CHLORIDE CR CHLORIDE 10 MEQ CPCR daily 10 MEQ CPCR LISINOPRIL 1 tablet LISINOPRIL 395802 LISINOPRIL Inactive 20 MG TABS by mouth 20 MG TABS daily DIFLUCAN 100 1 tablet DIFLUCAN 546041 FLUCONAZOLE Inactive MG TABS by mouth 100 MG TABS every other day for 2 doses DIFLUCAN 100 1 tablet DIFLUCAN 445640 FLUCONAZOLE Inactive MG TAB by mouth 100 MG TAB daily x 3 days PREDNISONE 2 tablets PREDNISONE 480488 PREDNISONE Inactive 20 MG TAB today, 20 MG TAB then 1 tablet days 2-4 VYVANSE 20 1 tablet VYVANSE 20 LISDEXAMFETAMI Inactive MG ORAL CAPS daily for MG ORAL NE DIMESYLATE binge CAPS eating disorder TRAMADOL HCL 1/2 po TRAMADOL 684281 TRAMADOL HCL Inactive 50 MG TABS tid with HCL 50 MG ES TABS Tylenol prn pain JANUVIA 100 1 tablet JANUVIA 100 SITAGLIPTIN Inactive MG TABS by mouth MG TABS PHOSPHATE daily AMOXICILLIN 2 po BID AMOXICILLIN 597621 AMOXICILLIN Inactive 500 MG CAPS x 10 days 500 MG CAPS PREDNISONE 2 tabs PREDNISONE 563622 PREDNISONE Inactive 20 MG TAB daily for 20 MG TAB 3 days, 1 tab daily for 3 days, 1/2 tab daily for 2 days NITROFURANTO One NITROFURANT 5012043 NITROFURANTOIN Inactive IN MONOHYD capsule OIN MONOHYD [...] HGBA1C - Chemistry sodium, serum 140 mmol/L 526-685 7364/04/13 potassium, serum 3.9 mmol/L 3.5-5.2 chloride, serum [...] 198 10^3/MM^3 10*3/mm3 142-424 Lab Report: Chlamydia/GC APTIMA/[id number] - Lab chlamydia DNA probe NOT DETECTED NOT DETECTED Lab Report: Chlamydia/GC APTIMA/[id number] - Microbiology Neisseria gonorrhoeae DNA probe NOT DETECTED NOT DETECTED Lab Report: Comp. Metabolic Panel, Lipid Panel - Chemistry sodium, serum 136 mmol/L 629-274 9639/01/04 carbon dioxide, venous blood 27.0 mmol/L 21.0-32.0 potassium, serum 4.6 mmol/L 3.5-5.2 chloride, serum 98 mmol/L 98-107 blood glucose 174 mg/dL 65-110 urea nitrogen, blood 12 mg/dL 7-18 creatinine, serum 0.78 mg/dL 0.55-1.30 alanine aminotransferase (SGPT), serum 65 U/L 12-78 aspartate aminotransferase (SGOT), serum 34 U/L 15-37 calcium, serum 8.9 mg/dL 8.5-10.1 bilirubin, serum, total 0.40 mg/dL 0.00-1.00 cholesterol, serum 219 mg/dL 650-605 3450/01/04 triglyceride, serum, fasting 214 mg/dL 30-200 HDL [...] mg/g mg/g{creat} 0-29 sodium, serum 140 mmol/L 643-742 1525/07/21 potassium, serum 3.9 mmol/L 3.5-5.2 chloride, serum [...] Yes Encounters Code Encounter Date Provider Facility CPT-76080 Level 3 Est. Patient Faby Marino [facility] 14:40:56 CDT [facility] CPT-05709 Level 4 Est. Patient Arnold Berrios [facility] 17:29:53 PLANNING OFFICIAL [employer] CPT-48707 Level 4 Est. [facility] CPT-94753 Level 3 Est. Patient Indigo Garciaomi [facility] 18:59:38 CDT CPT-53039 Level 3 Est. Patient [facility] 14:42:12 CDT -[facility] CPT-26797 Level 3 Est. Patient [facility] 22:18:20 CDT -[facility] CPT-85953 Level 3 Est. Patient [facility] 16:46:04 CDT -[facility] CPT-19165 Level 3 Est. Patient [facility] 15:39:53 CDT -[facility] CPT-24236 Level 3 Est. Patient Maite Sanchez MD [facility] 13:33:34 CDT -[facility] CPT-16049 Level 3 Est. Patient [facility] 11:37:08 CDT -[facility] CPT-57294 Level 3 Est. Patient [facility] 17:13:29 PLANNING OFFICIAL -[facility] CPT-59483 Level 3 Est. Patient [facility] 18:42:44 CDT CPT-32406 Level 3 Est. Patient [facility] 16:25:39 CDT CPT-34250 Level 3 Est. Patient Casey ARCHIBALD [facility] 09:52:45 CDT -[facility] CPT-42052 Level 3 Est. Patient [facility] 11:03:29 PLANNING OFFICIAL -[facility] CPT-49690 Level 3 Est. Patient [facility] 11:03:08 PLANNING OFFICIAL -[facility] CPT-69730 Level 3 Est. Patient [facility] 14:33:31 CDT -[facility] CPT-02960 Level 3 Est. Patient [facility] 17:05:02 PLANNING OFFICIAL -[facility] CPT-94790 Level 3 Est. Patient [facility] 17:48:06 PLANNING OFFICIAL -[facility] CPT-34703 Level 3 Est. Patient [facility] 14:59:22 PLANNING OFFICIAL -[facility] CPT-17925 Level 3 Est. Patient [facility] - 21:45:56 PLANNING OFFICIAL [place] [facility] CPT-63988 Level 3 Est. Patient [facility] 21:29:50 CDT -[facility] CPT-93611 Level 3 Est. Patient [facility] 12:41:09 CDT -[facility] Procedures Code Procedure Name Date Entry Date Standard Description CPT-29924 Chest 2V Frontal and Lat 14:47:43 CDT CPT-JTINJ Asp/Joint Injection 09:51:53 PLANNING OFFICIAL CPT-OV Office Visit 17:39:05 CDT CPT-OV Office Visit 15:19:50 CDT CPT-39112 Sono transvag pelvis non OB uterus ovaries cervix 18:04:34 CDT CPT-69798 Venipuncture Draw Fee 08:55:49 PLANNING OFFICIAL
--- OUTSIDE RECORDS SUMMARY | 2016-11-20 14:08 | External Medical Summary | Clinical Summary ---
:1965 Author Organization [facility] Address [address] [place] [address] Phone Allergies, Adverse Reactions, Alerts Allergy Name [...] 133.0 Resolved Maite Gutierrez Scabies 06/23 Laura OENAL PhD HYPERTENSION 401.9 Active Joseph Pineda Unspecified [...] GLUCOSE PhD ACUTE BRONCHITIS ICD-466.0 Inactive Maite Sacnhez PhD Medication List Medication Instructions Start Stop Generic NDC Status Provider Patient Date Date Name Instruction VYVANSE 20 1 tablet LISDEXAMFETAMINE 67544144224 Active Joseph Pineda Active MG ORAL daily for DIMESYLATE Farooq DO CAPS binge eating disorder METFORMIN 2 tablet METFORMIN HCL 30344887444 Active Joseph Pineda Active HCL 500 MG daily for Farooq DO TB24 blood sugars LASIX 20 2 tablet by FUROSEMIDE 20808215044 Active Joseph Pineda Active MG TAB mouth daily Farooq DO CELEBREX 1 tablet by CELECOXIB 83407005396 Active Joseph Pineda Active 200 MG mouth daily Farooq DO CAPS with meals PREDNISONE 2 tablets 2 PREDNISONE 69435010028 No Joseph Pineda Active 20 MG TAB today, then 0 Longer Farooq DO 1 tablet 1 Active days 2-4 5 / 0 4 / 3 DIFLUCAN 1 tablet by 2 FLUCONAZOLE 65628936843 No Joseph W Active 100 MG TAB mouth daily 0 Longer Farooq DO x 3 days 1 Active 5 / 0 4 / 3 AMARYL 1 1 tablet GLIMEPIRIDE 92939492666 Active Joseph Pineda Active MG ORAL orally Farooq DO TABS twice daily DIFLUCAN 1 tablet by 2 FLUCONAZOLE 70308979824 No Joseph W Active 100 MG mouth every 0 Longer Farooq DO TABS other day 1 Active for 2 doses 5 / 0 1 / 2 3 ZOFRAN 4 1 po q6hr ONDANSETRON HCL 79643096380 Active Bam Active MG TABS PRN Nausea W Luis ONEAL PREDNISONE 2 tabs 2 PREDNISONE 22751417788 No Joseph Pineda Active 20 MG TAB daily for 3 0 Longer Farooq DO days, 1 tab 1 Active daily for 3 4 days, 1/2 / tab daily 1 for 2 days 0 / 2 5 TRAMADOL 1/2 po tid TRAMADOL HCL 21900964567 Active Joseph Pineda Active HCL 50 MG with ES Farooq DO TABS Tylenol prn pain AMOXICILLI 2 po BID x 2 AMOXICILLIN 92720534512 No Maite C Active N 500 MG 10 days 0 Longer Madril CAPS 1 Active PhD 0 / 2 0 LISINOPRIL 1 tablet by 2 LISINOPRIL 63692934268 No Maite C Active 20 MG TABS mouth 0 Longer Madril daily 1 Active PhD 0 1 0 POTASSIUM 2 capsule 2 POTASSIUM CHLORIDE 92004781245 No Joseph Pineda Active CHLORIDE by mouth 0 Longer Farooq DO CR 10 MEQ daily 1 Active CPCR 9 SPIRONOLAC 1 tablet by 2 SPIRONOLACTONE 33831053188 No Joseph Pineda Active TONE 25 MG mouth daily 0 Longer Farooq DO TAB 1 Active 4 / 0 8 / 2 9 METFORMIN 1 tablet 2 METFORMIN HCL 22765885297 No Joseph Pienda Active HCL 500 MG by mouth 0 Longer Farooq DO TABS twice daily 1 Active 4 / 0 8 / 2 9 AMARYL 1 1 tab twice 2 GLIMEPIRIDE 35086261857 No Joseph W Active MG TABS daily 0 Longer Farooq DO 1 Active 4 / 0 8 / 2 9 PHENTERMIN 1 po q am 2 PHENTERMINE HCL 07878072823 No Joseph W Active E HCL 37.5 for wt. 0 Longer Farooq DO MG TABS loss 1 Active 3 / 1 2 / 2 3 PROMETHAZI 1 tab by 2 PROMETHAZINE HCL 53139016916 No Joseph W Active NE HCL 25 mouth every 0 Longer Farooq DO MG TABS 6 hours as 1 Active needed 3 / 0 9 / 0 9 CIPROFLOXA Take one 2 CIPROFLOXACIN HCL 60150928549 No Joseph W Active DELORES HCL (1) tablet 0 Longer Farooq DO 500 MG by mouth 1 Active TABS twice a day 3 / 0 9 / 0 9 ABILIFY 5 one p.o. q. 2 ARIPIPRAZOLE 61787607882 No Joseph W Active MG TABS day 0 Longer Farooq DO 1 Active 3 / 0 9 / 0 9 HYDROCHLOR 2 tabs 2 HYDROCHLOROTHIAZID 89404455147 No Joseph W Active OTHIAZIDE every 0 E Longer Farooq DO 25 MG TABS morning 1 Active 3 / 0 6 / 2 7 ABILIFY 2 1 po q hs 2 ARIPIPRAZOLE 80588644539 No Joseph W Active MG TABS for major 0 Longer Farooq DO depression 1 Active 3 / 0 5 / 0 7 ADIPEX-P 1/2 tab po 2 PHENTERMINE HCL 83679518074 No Casey Active 37.5 MG q am for 0 Longer [place] CAPS weight loss 1 Active PA 3 / 0 5 / 0 1 CIPRO 500 1 tablet by 2 CIPROFLOXACIN HCL 11150561563 No Casey Active MG TAB mouth twice 0 Longer [place] daily 1 Active PA 3 / 0 5 / 0 1 NECON 1/35 1 po daily 2 NORETHINDRONE-ETH 35510433498 No Casey Active (28) 1-35 0 ESTRADIOL Longer [place] MG-MCG 1 Active PA TABS 3 / 0 5 / 0 1 TRAMADOL 1 po tid 2 TRAMADOL HCL 20708841685 No Casey Active HCL 50 MG with ES 0 Longer [place] TABS Tylenol 1 Active PA 3 / 0 5 / 0 1 FLUCONAZOL one p.o. q. 2 FLUCONAZOLE 67957572477 No Casey Active E 100 MG day 2 days 0 Longer [place] TABS 1 Active PA 3 / 0 5 / 0 1 POTASSIUM 1 capsule 2 POTASSIUM CHLORIDE 28419335368 No Casey Active CHLORIDE by mouth 0 Longer Leonarda CR 10 MEQ daily 1 Active PA CPCR 3 / 0 5 / 0 1 IMIPRAMINE Take 6 IMIPRAMINE HCL 57643216814 Active Bam Active HCL 50 MG tablets by W TABS mouth at [place] bedtime DIFLUCAN 1 tablet by 2 FLUCONAZOLE 36107611337 No Joseph W Active 100 MG TAB mouth daily 0 Longer Farooq DO 1 Active 2 / 0 2 / 2 4 METOPROLOL 1/2 tab po METOPROLOL 67337678193 Active Joseph W Active TARTRATE bid TARTRATE Farooq DO 25 MG TABS VERAPAMIL 2 po bid VERAPAMIL HCL 61450995591 Active Joseph W Active HCL CR 120 Farooq DO MG TAB CR PERMETHRIN apply neck 2 PERMETHRIN 09639078564 No Joseph W Active 5 % CREA to toes 0 Longer Farooq DO tonight and 1 Active then rinse 2 off in / morning. 0 repeat at 7 1 days / 2 0 SEROQUEL one p.o. q. 2 QUETIAPINE 46557677356 No Joseph W Active XR 50 MG evening 0 FUMARATE Longer Farooq DO [id number] 1 Active 2 / 0 1 / 2 0 TRAMADOL 1-2 tablets 2 TRAMADOL HCL 76056848213 No Joseph W Active HCL 50 MG every 6-8 0 Longer Farooq DO TABS hours as 1 Active needed for 2 pain / 0 1 / 2 0 ALPRAZOLAM one p.o. ALPRAZOLAM 96003219692 Active Joseph W Active 3 MG q.h.s. Farooq DO [id number] ALPRAZOLAM Take 1 2 ALPRAZOLAM 93560861121 No Joseph W Active XR tablet by 0 [id number] Longer Farooq DO [id number] mouth at 1 Active bedtime 1 / 2 9 DIFLUCAN 1 tablet by 2 FLUCONAZOLE 27016725624 No Joseph W Active 100 MG TAB mouth daily 0 Longer Farooq DO 1 Active 0 / 0 6 AMBIEN 10 1 tab by ZOLPIDEM TARTRATE 58262050791 Active Joseph W Active MG TAB mouth at Farooq DO bedtime as needed for sleep DIFLUCAN 100 1 tablet DIFLUCAN 828977 FLUCONAZOLE Inactive MG TAB by mouth 100 MG TAB daily ALPRAZOLAM Take 1 ALPRAZOLAM ALPRAZOLAM Inactive XR [id number] tablet by XR [id number] mouth at [id number] bedtime TRAMADOL HCL 1-2 TRAMADOL 630399 TRAMADOL HCL Inactive 50 MG TABS tablets HCL 50 MG every 6-8 TABS hours as needed for pain SEROQUEL XR one p.o. SEROQUEL XR QUETIAPINE Inactive 50 MG q. evening 50 MG FUMARATE [id number] PERMETHRIN 5 apply neck PERMETHRIN 780295 PERMETHRIN Inactive % CREA to toes 5 % CREA tonight and then rinse off in morning. repeat at 7 days DIFLUCAN 100 1 tablet DIFLUCAN 562404 FLUCONAZOLE Inactive MG TAB by mouth 100 MG TAB daily POTASSIUM 1 capsule POTASSIUM POTASSIUM Inactive CHLORIDE CR by mouth CHLORIDE CR CHLORIDE 10 MEQ CPCR daily 10 MEQ CPCR FLUCONAZOLE one p.o. FLUCONAZOLE 19760111 FLUCONAZOLE Inactive 100 MG TABS q. day 2 100 MG TABS days TRAMADOL HCL 1 po tid TRAMADOL 946010 TRAMADOL HCL Inactive 50 MG TABS with ES HCL 50 MG Tylenol TABS NECON 1/35 1 po daily NECON /35 NORETHINDRONE- Inactive (28) 1-35 (28) 1-35 ETH ESTRADIOL MG-MCG TABS MG-MCG TABS CIPRO 500 MG 1 tablet CIPRO 500 535553 CIPROFLOXACIN Inactive TAB by mouth MG TAB HCL twice daily ADIPEX-P 1/2 tab po ADIPEX-P 128971 PHENTERMINE Inactive 37.5 MG CAPS q am for 37.5 MG HCL weight CAPS loss ABILIFY 2 MG 1 po q hs ABILIFY 2 801850 ARIPIPRAZOLE Inactive TABS for major MG TABS depression HYDROCHLOROT 2 tabs HYDROCHLORO 139011 HYDROCHLOROTHI Inactive HIAZIDE 25 every THIAZIDE 25 AZIDE MG TABS morning MG TABS ABILIFY 5 MG one p.o. ABILIFY 5 185011 ARIPIPRAZOLE Inactive TABS q. day MG TABS CIPROFLOXACI Take one CIPROFLOXAC 071369 CIPROFLOXACIN Inactive N HCL 500 MG (1) tablet IN HCL 500 HCL TABS by mouth MG TABS twice a day PROMETHAZINE 1 tab by PROMETHAZIN 068225 PROMETHAZINE Inactive HCL 25 MG mouth E HCL 25 MG HCL TABS every 6 TABS hours as needed PHENTERMINE 1 po q am PHENTERMINE 377029 PHENTERMINE Inactive HCL 37.5 MG for wt. HCL 37.5 MG HCL TABS loss TABS AMARYL 1 MG 1 tab AMARYL 1 MG 155803 GLIMEPIRIDE Inactive TABS twice TABS daily METFORMIN 1 tablet METFORMIN 886685 METFORMIN HCL Inactive HCL 500 MG by mouth HCL 500 MG TABS twice TABS daily SPIRONOLACTO 1 tablet SPIRONOLACT 980166 SPIRONOLACTONE Inactive NE 25 MG TAB by mouth ONE 25 MG daily TAB POTASSIUM 2 capsule POTASSIUM POTASSIUM Inactive CHLORIDE CR by mouth CHLORIDE CR CHLORIDE 10 MEQ CPCR daily 10 MEQ CPCR LISINOPRIL 1 tablet LISINOPRIL 546667 LISINOPRIL Inactive 20 MG TABS by mouth 20 MG TABS daily DIFLUCAN 100 1 tablet DIFLUCAN 102844 FLUCONAZOLE Inactive MG TABS by mouth 100 MG TABS every other day for 2 doses DIFLUCAN 100 1 tablet DIFLUCAN 836740 FLUCONAZOLE Inactive MG TAB by mouth 100 MG TAB daily x 3 days PREDNISONE 2 tablets PREDNISONE 945587 PREDNISONE Inactive 20 MG TAB today, 20 MG TAB then 1 tablet days 2-4 AMOXICILLIN 2 po BID x AMOXICILLIN 224397 AMOXICILLIN Inactive 500 MG CAPS 10 days 500 MG CAPS PREDNISONE 2 tabs PREDNISONE 618644 PREDNISONE Inactive 20 MG TAB daily for [...] Panel - Chemistry sodium, serum 137 mmol/L 199-649 6905/08/29 potassium, serum 4.1 mmol/L 3.5-5.2 chloride, serum 100 mmol/L 98-107 carbon dioxide, venous blood 31.1 mmol/L 21.0-32.0 blood glucose 138 mg/dL 65-110 calcium, serum 9.2 mg/dL 8.5-10.1 urea nitrogen, blood 9 mg/dL 7-18 creatinine, serum 0.80 mg/dL 0.60-1.30 Lab Report: CBC, Comp. Metabolic Panel, HGBA1C - Chemistry sodium, serum 140 mmol/L 985-776 3728/04/13 potassium, serum 3.9 mmol/L 3.5-5.2 chloride, serum [...] 4.3-6.0 Encounters Code Encounter Date Provider Facility CPT-26589 Level [address] Est. [address] [facility] 22:18:20 CDT -[facility] CPT-39480 Level 3 Est. [address] [facility] 16:46:04 CDT -[facility] CPT-80238 Level 3 Est. Patient Joseph Trivedi [facility] 15:39:53 CDT -[facility] CPT-69324 Level 3 Est. Patient Maite Sanchez MD [facility] 13:33:34 CDT -[facility] CPT-82274 Level 3 Est. Patient Joseph Pineda [facility] 11:37:08 CDT -[facility] CPT-54253 Level 3 Est. 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 Patient Joseph Pineda [facility] 18:42:44 CDT CPT-09498 Level 3 Est. Patient Joseph Pineda [facility] 16:25:39 CDT CPT-73684 Level 3 Est. Patient Casey ARCHIBALD [facility] 09:52:45 CDT -[facility] CPT-56831 Level 3 Est. Patient Joseph Pineda [facility] 11:03:29 REFINERY OPERATOR ASSISTANT -[facility] CPT-26466 Level 3 Est. Patient Joseph Pineda [facility] 11:03:08 REFINERY OPERATOR ASSISTANT -[facility] CPT-66507 Level 3 Est. Patient Joseph Pineda [facility] 14:33:31 CDT -[facility] CPT-86584 Level 3 Est. Patient Joseph Pineda [facility] 17:05:02 REFINERY OPERATOR ASSISTANT -[facility] CPT-15474 Level 3 Est. Patient Joseph Pineda [facility] 17:48:06 REFINERY OPERATOR ASSISTANT -[facility] CPT-48024 Level 3 Est. Patient Joseph Pineda [facility] 14:59:22 REFINERY OPERATOR ASSISTANT -[facility] CPT-57728 Level 3 Est. Patient Joseph Pineda [facility] - 21:45:56 REFINERY OPERATOR ASSISTANT Jose [facility] CPT-03563 Level 3 Est. Patient Joseph Pineda [facility] 21:29:50 CDT -[facility] CPT-19323 Level 3 Est. Patient Joseph Pineda [facility] 12:41:09 CDT -[facility] Procedures Code Procedure Name Date Entry Date Standard Description CPT-91737 Venipuncture Draw Fee 08:55:49 REFINERY OPERATOR ASSISTANT
--- OUTSIDE RECORDS SUMMARY | 2016-11-20 14:08 | External Medical Summary | Clinical Summary ---
:1965 Author Organization [facility] deskwolf Address [address] [address] Phone Allergies, Adverse Reactions, Alerts Allergy Name Reaction Description Start Date Severity Status Provider VERSED States jsut about Critical Active Gloria Saavedra SENIOR PEOPLESOFT DEVELOPER killed her NKDA Critical Active Indigo Yokum COORDINATOR OF REHABILITATION SERVICES NKDA Critical No Longer Indigo Yokum COORDINATOR OF REHABILITATION SERVICES Active NKDA Critical Inactive Adrianna Elder Conditions [...] Resolved Indigo Other malaise 05/24 07/02 Yokum COORDINATOR OF REHABILITATION SERVICES and fatigue SLEEP APNEA, 327.23 Active Joseph Pineda Obstructive OBSTRUCTIVE, 06/27 06/27 Farooq DO sleep apnea MILD (adult) (pediatric) OVERWEIGHT 278.02 Inactive Joseph Pineda Overweight 06/28 06/28 Farooq DO Obesity 278.00 Active Indigo Obesity, 06/28 10/18 Yokum COORDINATOR OF REHABILITATION SERVICES unspecified OTH GENERAL V70.3 Resolved Maite Gutierrez Other general MEDICAL Laura ONEAL medical EXAMINATION PhD examination for ADMIN administrative PURPOSES purposes OTHER 790.29 Resolved Maite C Other abnormal ABNORMAL 05/20 Laura ONEAL glucose GLUCOSE PhD ACUTE 466.0 Resolved Maite Gutierrez Acute bronchitis BRONCHITIS 09/02 Laura ONEAL PhD DEPENDENT 782.3 Resolved Indigo Edema EDEMA, LEGS, 10/29 10/18 Yokum COORDINATOR OF REHABILITATION SERVICES BILATERAL HYPOKALEMIA, 276.8 Resolved Indigo Hypopotassemia MILD 10/29 07/02 Yokum COORDINATOR OF REHABILITATION SERVICES Diabetes, 250.00 Inactive Joseph Pineda Diabetes Type 2 06/27 06/27 Farooq DO mellitus without mention of complication, type II or unspecified type, not stated as uncontrolled Diabetes 250.02 Resolved Indigo Diabetes mellitus, 06/27 10/18 Yokum COORDINATOR OF REHABILITATION SERVICES mellitus without type II, mention of uncontrolled [...] Resolved Indigo Routine gynecological 12/14 07/02 Yokum COORDINATOR OF REHABILITATION SERVICES gynecological examination examination Postmenopausa 627.1 Resolved Indigo Postmenopausal l bleeding 12/14 07/02 Yokum COORDINATOR OF REHABILITATION SERVICES bleeding Screening for V76.51 Resolved Indigo Screening for malignant 12/26 07/02 Yokum COORDINATOR OF REHABILITATION SERVICES malignant neoplasms of neoplasms of colon colon Insomnia, 307.42 Active Indigo 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 COORDINATOR OF REHABILITATION SERVICES disorder of initiating or maintaining sleep Establish V68.89 Resolved Indigo Encounters for care or get 01/16 07/02 Yokum COORDINATOR OF REHABILITATION SERVICES other specified acquainted administrative visit purpose Weakness, 342.90 Resolved Indigo Hemiplegia, left side of 06/20 10/18 Yokum COORDINATOR OF REHABILITATION SERVICES unspecified, body affecting unspecified side TIA 435.9 Active Indigo Unspecified 06/20 07/02 Yokum COORDINATOR OF REHABILITATION SERVICES transient cerebral ischemia Knee pain, 719.46 Active Indigo Pain in joint bilateral 06/20 10/18 Yokum COORDINATOR OF REHABILITATION SERVICES involving lower leg Bronchitis 490 Resolved Indigo Bronchitis, not 07/23 10/18 Yokum COORDINATOR OF REHABILITATION SERVICES specified as acute or chronic Diabetes 357.2 Active Maliheh Polyneuropathy mellitus, 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 y Knee pain, 719.46 Active Indigo Pain in joint right 06/20 10/18 Yokum COORDINATOR OF REHABILITATION SERVICES involving lower leg Jesi 112.3 Active Indigo Candidiasis of intertrigo 10/09 10/18 Yokum COORDINATOR OF REHABILITATION SERVICES skin and nails Hyperlipidemi 272.4 Active Anne Other and a 12/24 12/24 Neil unspecified RMA hyperlipidemia Incontinence, 788.33 Active Indigo Mixed mixed, 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 COORDINATOR OF REHABILITATION SERVICES incontinence urge/stress (female) (male) Female stress 625.6 Active Yury Monaco Stress incontinence 01/03 01/03 Cy patel MD female Vaginal odor 623.8 Active Gloria Other specified 05/28 05/28 Naff SENIOR PEOPLESOFT DEVELOPER noninflammatory disorders of vagina Urinary tract 599.0 Active Indigo Urinary tract infection 05/28 05/28 Yok COORDINATOR OF REHABILITATION SERVICES infection, site not specified Urine odor 791.9 Active Indigo Other 05/28 06/26 Yokum COORDINATOR OF REHABILITATION SERVICES nonspecific findings on examination of urine ABNORMAL VAGINAL ICD-626.9 Inactive Maite Sanchez BLEEDING PhD SCABIES ICD-133.0 Inactive Maite Sanchez PhD FATIGUE ICD-780.79 Inactive Indigo Yokum COORDINATOR OF REHABILITATION SERVICES OTH GENERAL ICD-V70.3 Inactive Maite Sanchez MEDICAL PhD EXAMINATION ADMIN PURPOSES OTHER ABNORMAL ICD-790.29 Inactive Maite Sanchez GLUCOSE MD PhD ACUTE BRONCHITIS ICD-466.0 Inactive Maite Sanchez PhD DEPENDENT EDEMA, ICD-782.3 Inactive Indigo Yokum LEGS, BILATERAL COORDINATOR OF REHABILITATION SERVICES HYPOKALEMIA, MILD ICD-276.8 Inactive Indigo Yokum COORDINATOR OF REHABILITATION SERVICES Diabetes mellitus, ICD-250.02 Inactive Indigo Yokum type II, COORDINATOR OF REHABILITATION SERVICES uncontrolled Sinusitis, ICD-461.1 Inactive Ismael Coyne frontal, acute Amandeep ONEAL Laryngitis, acute ICD-464.00 Inactive Ismael Coyne Amandeep ONEAL Routine ICD-V72.31 Inactive Indigo Yokum gynecological COORDINATOR OF REHABILITATION SERVICES examination Postmenopausal ICD-627.1 Inactive Indigo Yokum 2015 bleeding COORDINATOR OF REHABILITATION SERVICES Screening for ICD-V76.51 Inactive Indigo Yokum 2015 malignant COORDINATOR OF REHABILITATION SERVICES neoplasms of colon Establish care or ICD-V68.89 Inactive Indigo Yokum get acquainted COORDINATOR OF REHABILITATION SERVICES visit Weakness, left ICD-342.90 Inactive Indigo Yokum side of body COORDINATOR OF REHABILITATION SERVICES Bronchitis ICD-490 Inactive Indigo Yokum COORDINATOR OF REHABILITATION SERVICES Medication List Medication Instructions Start Stop Generic NDC Status Provider Patient Date Date Name Instruction REGINALDRE 5 1 tablet SOLIFENACIN 16224562116 Active J Carlos Enrique Active MG TABS daily SUCCINATE Cy ONEAL CIPRO 250 MG 1 tablet 2 CIPROFLOXACIN 41425625065 No Indigo Active TAB by mouth 0 HCL Longer Yokum twice 1 Active COORDINATOR OF REHABILITATION SERVICES daily 7 METFORMIN 2 tablets 2 METFORMIN HCL 80958587862 No Indigo Active HCL 500 MG by mouth 0 Longer Yokum TB24 twice 1 Active COORDINATOR OF REHABILITATION SERVICES daily 2 AMARYL 1 MG 1 tablet 2 GLIMEPIRIDE 92836062134 No Indigo Active ORAL TABS orally 0 Longer Yokum twice 1 Active COORDINATOR OF REHABILITATION SERVICES daily 2 NYSTATIN apply to NYSTATIN 91265039037 Active Indigo Active 833458 rash TID Yokum UNIT/GM CREA PRN COORDINATOR OF REHABILITATION SERVICES TROKENDI XR 2 tab TOPIRAMATE 84283642255 Active Maliheh Active 100 MG ORAL daily Ziglari [id number] 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 METOPROLOL 1 tab po METOPROLOL 74651103523 Active Indigo Active TARTRATE 25 bid TARTRATE Yokum MG TABS COORDINATOR OF REHABILITATION SERVICES AZITHROMYCIN 2 po qd x 2 AZITHROMYCIN 51371180992 No Jillina Active 250 MG TABS 1 day, 0 Longer Frazell then 1 po 1 Active COORDINATOR OF REHABILITATION SERVICES qd x 4 6 days / 0 3 / 2 6 PREDNISONE 2 pills 2 PREDNISONE 11266573888 No Jillina Active 20 MG TAB daily x 4 0 Longer Frazell days 1 Active COORDINATOR OF REHABILITATION SERVICES 6 / 0 3 / 2 5 PIOGLITAZONE take one a PIOGLITAZONE 58525450694 Active Maliheh Active HCL 30 MG day HCL Ziglari ORAL TABS 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 JANUVIA 100 1 tablet 2 SITAGLIPTIN 15656637481 No Indigo Active MG TABS by mouth 0 PHOSPHATE Longer Yokum daily 1 Active COORDINATOR OF REHABILITATION SERVICES 6 / 0 2 / 1 6 ATORVASTATIN 1 pill by ATORVASTATIN 14920938700 Active Indigo Active CALCIUM 10 mouth CALCIUM Yokum MG TABS nightly, COORDINATOR OF REHABILITATION SERVICES for cholestero l ASPIRIN 81 1 po qd ASPIRIN 12917916556 Active Indigo Active MG ORAL TABS Yokum COORDINATOR OF REHABILITATION SERVICES NITROFURANTO One 2 NITROFURANTOIN 83457816922 No Indigo Active IN MONOHYD capsule 0 MONOHYD MACRO Longer Yokum MACRO 100 MG BID for 1 Active COORDINATOR OF REHABILITATION SERVICES CAPS UTI 6 / 0 / 3 TRAMADOL HCL 1/2 po tid 2 TRAMADOL HCL 24322720521 No Jillina Active 50 MG TABS with ES 0 Longer Frazell Tylenol 1 Active COORDINATOR OF REHABILITATION SERVICES prn pain 5 / 0 2 VYVANSE 20 1 tablet 2 LISDEXAMFETAMIN 75587088900 No Jillina Active MG ORAL CAPS daily for 0 E DIMESYLATE Longer Frazell binge 1 Active COORDINATOR OF REHABILITATION SERVICES eating 5 disorder / 0 2 LASIX 20 MG 2 tablet FUROSEMIDE 27678971765 Active Indigo Active TAB by mouth Yokum daily COORDINATOR OF REHABILITATION SERVICES CELEBREX 200 1 tablet CELECOXIB 24910028364 Active Indigo Active MG CAPS by mouth Yokum daily with COORDINATOR OF REHABILITATION SERVICES meals PREDNISONE 2 tablets 2 PREDNISONE 88634507125 No Joseph W Active 20 MG TAB today, 0 Longer Farooq DO then 1 1 Active tablet 5 days 2-4 / 0 4 / 1 3 DIFLUCAN 100 1 tablet 2 FLUCONAZOLE 46943612313 No Joseph W Active MG TAB by mouth 0 Longer Farooq DO daily x 3 1 Active days 5 / 0 4 / 1 3 DIFLUCAN 100 1 tablet 2 FLUCONAZOLE 84523238520 No Joseph W Active MG TABS by mouth 0 Longer Farooq DO every 1 Active other day 5 for 2 / doses 0 1 / 2 3 ZOFRAN 4 MG 1 po q6hr ONDANSETRON HCL 32242137847 Active Joseph W Active TABS PRN Nausea Farooq DO PREDNISONE 2 tabs 2 PREDNISONE 97622880974 No Joseph W Active 20 MG TAB daily for 0 Longer Farooq DO 3 days, 1 1 Active tab daily 4 for 3 / days, 1/2 1 tab daily 0 for 2 days / 2 5 AMOXICILLIN 2 po BID x 2 AMOXICILLIN 59153180966 No Maite C Active 500 MG CAPS 10 days 0 Longer Laura ONEAL 1 Active PhD 0 / 2 0 LISINOPRIL 1 tablet 2 LISINOPRIL 23462875451 No Maite C Active 20 MG TABS by mouth 0 Longer Kimberlyl MD daily 1 Active PhD 0 / 0 POTASSIUM 2 capsule 2 POTASSIUM 58031960127 No Joseph W Active CHLORIDE CR by mouth 0 CHLORIDE Longer Farooq DO 10 MEQ CPCR daily 1 Active 4 / 0 8 / 2 9 SPIRONOLACTO 1 tablet 2 SPIRONOLACTONE 96402380433 No Joseph W Active NE 25 MG TAB by mouth 0 Longer Farooq DO daily 1 Active 4 / 0 8 2 9 METFORMIN 1 tablet 2 METFORMIN HCL 27174901325 No Joseph W Active HCL 500 MG by mouth 0 Longer Farooq DO TABS twice 1 Active daily 4 / 0 8 / 2 9 AMARYL 1 MG 1 tab 2 GLIMEPIRIDE 09669210925 No Joseph W Active TABS twice 0 Longer Farooq DO daily 1 Active 4 / 0 8 / 2 9 PHENTERMINE 1 po q am 2 PHENTERMINE HCL 81982895698 No Joseph W Active HCL 37.5 MG for wt. 0 Longer Farooq DO TABS loss 1 Active 3 / 1 2 / 2 3 PROMETHAZINE 1 tab by 2 PROMETHAZINE 73851067420 No Joseph W Active HCL 25 MG mouth 0 HCL Longer Farooq DO TABS every 6 1 Active hours as 3 needed / 0 9 / 0 9 CIPROFLOXACI Take one 2 CIPROFLOXACIN 10810577153 No Joseph W Active N HCL 500 MG (1) tablet 0 HCL Longer Farooq DO TABS by mouth 1 Active twice a 3 day / 0 9 / 0 9 ABILIFY 5 MG one p.o. 2 ARIPIPRAZOLE 22430514123 No Joseph W Active TABS q. day 0 Longer Farooq DO 1 Active 3 / 0 9 / 0 9 HYDROCHLOROT 2 tabs 2 HYDROCHLOROTHIA 14905275308 No Joseph W Active HIAZIDE 25 every 0 ZIDE Longer Farooq DO MG TABS morning 1 Active 3 / 0 6 / 2 7 ABILIFY 2 MG 1 po q hs 2 ARIPIPRAZOLE 90602351701 No Joseph W Active TABS for major 0 Longer [facility] depression 1 Active 3 / 0 5 / 0 7 ADIPEX-P 1/2 tab po 2 PHENTERMINE HCL 92023617826 No Casey Active 37.5 MG CAPS q am for 0 Longer [facility] weight 1 Active loss 3 / 0 5 / 0 1 CIPRO 500 MG 1 tablet 2 CIPROFLOXACIN 66034737201 No Casey Active TAB by mouth 0 HCL Longer [facility] twice 1 Active daily 3 / 0 5 / 0 1 NECON 1 po daily 2 NORETHINDRONE-E 26253229398 No Casey Active () - 0 ESTRADIOL Longer [facility] MG-MCG TABS 1 Active 3 / 0 5 / 0 1 TRAMADOL HCL 1 po tid 2 TRAMADOL HCL 39509441362 No Casey Active 50 MG TABS with ES 0 Longer [facility] Tylenol 1 Active 3 / 0 5 / 0 1 FLUCONAZOLE one p.o. 2 FLUCONAZOLE 37798244009 No Casey Active 100 MG TABS q. day 2 0 Longer [facility] days 1 Active 3 / 0 5 / 0 1 POTASSIUM 1 capsule 2 POTASSIUM 17261427555 No Casey Active CHLORIDE CR by mouth 0 CHLORIDE Longer [facility] 10 MEQ CPCR daily 1 Active 3 / 0 5 / 0 1 IMIPRAMINE Take 6 IMIPRAMINE HCL 56446394635 Active Indigo Active HCL 50 MG tablets by Yokum TABS mouth at COORDINATOR OF REHABILITATION SERVICES bedtime DIFLUCAN 100 1 tablet 2 FLUCONAZOLE 47627368559 No Joseph W Active MG TAB by mouth 0 Longer [facility] daily 1 Active 2 / 0 2 / 2 4 VERAPAMIL 2 po bid VERAPAMIL HCL 59926101919 Active Indigo Active HCL CR 120 Yokum MG TAB CR COORDINATOR OF REHABILITATION SERVICES PERMETHRIN 5 apply neck 2 PERMETHRIN 61937945906 No Joseph W Active % CREA to toes 0 Longer [facility] tonight 1 Active and then 2 rinse off / in 0 morning. 1 repeat at / 7 days 2 0 SEROQUEL XR one p.o. 2 QUETIAPINE 66986490074 No Joseph W Active 50 MG q. evening 0 FUMARATE Longer Farooq DO [id number] 1 Active 2 / 0 1 / 2 0 TRAMADOL HCL 1-2 2 TRAMADOL HCL 71190376074 No Joseph W Active 50 MG TABS tablets 0 Longer Farooq DO every 6-8 1 Active hours as 2 needed for / pain 0 1 / 2 0 ALPRAZOLAM 3 one p.o. ALPRAZOLAM 17825359130 Active Indigo Active MG [id number] q.h.s. Yokum COORDINATOR OF REHABILITATION SERVICES ALPRAZOLAM Take 1 2 ALPRAZOLAM 79884196871 No Joseph W Active XR [id number] tablet by 0 [id number] Longer Farooq DO mouth at 1 Active bedtime 1 / 2 9 DIFLUCAN 100 1 tablet 2 FLUCONAZOLE 53961515266 No Joseph W Active MG TAB by mouth 0 Longer Farooq DO daily 1 Active 0 / 0 6 AMBIEN 10 MG 1 tab by ZOLPIDEM 05240573465 Active Indigo Active TAB mouth at TARTRATE Yokum bedtime as COORDINATOR OF REHABILITATION SERVICES needed for sleep DIFLUCAN 100 1 tablet DIFLUCAN 170304 FLUCONAZOLE Inactive MG TAB by mouth 100 MG TAB daily ALPRAZOLAM Take 1 ALPRAZOLAM ALPRAZOLAM Inactive XR [id number] tablet by XR [id number] mouth at [id number] bedtime TRAMADOL HCL 1-2 TRAMADOL 637574 TRAMADOL HCL Inactive 50 MG TABS tablets HCL 50 MG every 6-8 TABS hours as needed for pain SEROQUEL XR one p.o. SEROQUEL XR QUETIAPINE Inactive 50 MG q. 50 MG FUMARATE [id number] evening [id number] PERMETHRIN 5 apply PERMETHRIN 370501 PERMETHRIN Inactive % CREA neck to 5 % CREA toes tonight and then rinse off in morning. repeat at 7 days DIFLUCAN 100 1 tablet DIFLUCAN 896628 FLUCONAZOLE Inactive MG TAB by mouth 100 MG TAB daily POTASSIUM 1 capsule POTASSIUM POTASSIUM Inactive CHLORIDE CR by mouth CHLORIDE CR CHLORIDE 10 MEQ CPCR daily 10 MEQ CPCR FLUCONAZOLE one p.o. FLUCONAZOLE 19760111 FLUCONAZOLE Inactive 100 MG TABS q. day 2 100 MG TABS days TRAMADOL HCL 1 po tid TRAMADOL 155321 TRAMADOL HCL Inactive 50 MG TABS with ES HCL 50 MG Tylenol TABS NECON 35 1 po NECON NORETHINDRONE- Inactive () 1-35 daily () 1-35 ETH ESTRADIOL MG-MCG TABS MG-MCG TABS CIPRO 500 MG 1 tablet CIPRO 500 592684 CIPROFLOXACIN Inactive TAB by mouth MG TAB HCL twice daily ADIPEX-P 1/2 tab ADIPEX-P 145074 PHENTERMINE Inactive 37.5 MG CAPS po q am 37.5 MG HCL for CAPS weight loss ABILIFY 2 MG 1 po q hs ABILIFY 2 667564 ARIPIPRAZOLE Inactive TABS for major MG TABS depressio n HYDROCHLOROT 2 tabs HYDROCHLORO 271658 HYDROCHLOROTHI Inactive HIAZIDE 25 every THIAZIDE 25 AZIDE MG TABS morning MG TABS ABILIFY 5 MG one p.o. ABILIFY 5 575307 ARIPIPRAZOLE Inactive TABS q. day MG TABS CIPROFLOXACI Take one CIPROFLOXAC 276744 CIPROFLOXACIN Inactive N HCL 500 MG (1) IN HCL 500 HCL TABS tablet by MG TABS mouth twice a day PROMETHAZINE 1 tab by PROMETHAZIN 098755 PROMETHAZINE Inactive HCL 25 MG mouth E HCL 25 MG HCL TABS every 6 TABS hours as needed PHENTERMINE 1 po q am PHENTERMINE 392056 PHENTERMINE Inactive HCL 37.5 MG for wt. HCL 37.5 MG HCL TABS loss TABS AMARYL 1 MG 1 tab AMARYL 1 MG 19910808 GLIMEPIRIDE Inactive TABS twice TABS daily METFORMIN 1 tablet METFORMIN 776654 METFORMIN HCL Inactive HCL 500 MG by mouth HCL 500 MG TABS twice TABS daily SPIRONOLACTO 1 tablet SPIRONOLACT 693922 SPIRONOLACTONE Inactive NE 25 MG TAB by mouth ONE 25 MG daily TAB POTASSIUM 2 capsule POTASSIUM POTASSIUM Inactive CHLORIDE CR by mouth CHLORIDE CR CHLORIDE 10 MEQ CPCR daily 10 MEQ CPCR LISINOPRIL 1 tablet LISINOPRIL 797342 LISINOPRIL Inactive 20 MG TABS by mouth 20 MG TABS daily DIFLUCAN 100 1 tablet DIFLUCAN 233843 FLUCONAZOLE Inactive MG TABS by mouth 100 MG TABS every other day for 2 doses DIFLUCAN 100 1 tablet DIFLUCAN 712140 FLUCONAZOLE Inactive MG TAB by mouth 100 MG TAB daily x 3 days PREDNISONE 2 tablets PREDNISONE 416094 PREDNISONE Inactive 20 MG TAB today, 20 MG TAB then 1 tablet days 2-4 VYVANSE 20 1 tablet VYVANSE 20 LISDEXAMFETAMI Inactive MG ORAL CAPS daily for MG ORAL NE DIMESYLATE binge CAPS eating disorder TRAMADOL HCL 1/2 po TRAMADOL 963526 TRAMADOL HCL Inactive 50 MG TABS tid [...] TB24 daily AMOXICILLIN 2 po BID AMOXICILLIN 207768 AMOXICILLIN Inactive 500 MG CAPS x 10 days 500 MG CAPS PREDNISONE 2 tabs PREDNISONE 018126 PREDNISONE Inactive 20 MG TAB daily for 20 MG TAB 3 days, 1 tab daily for 3 days, 1/2 tab daily for 2 days NITROFURANTO One NITROFURANT 5637624 NITROFURANTOIN Inactive IN MONOHYD capsule OIN MONOHYD MONOHYD MACRO MACRO 100 MG BID for MACRO 100 CAPS UTI MG CAPS PREDNISONE 2 pills PREDNISONE 627213 PREDNISONE Inactive 20 MG TAB daily x 4 20 MG TAB days AZITHROMYCIN 2 po qd x AZITHROMYCI 6706308 AZITHROMYCIN Inactive 250 MG TABS 1 day, N 250 MG then 1 po TABS qd x 4 days CIPRO 250 MG 1 tablet CIPRO 250 461735 CIPROFLOXACIN Inactive TAB by mouth MG TAB [...] pressure, diastolic - 8462-4 65 mm[Hg] BP nunze blood pressure, systolic - 8480-6 115 mm[Hg] [...] HGBA1C - Chemistry sodium, serum 140 mmol/L 636-971 0309/06/03 potassium, serum 3.9 mmol/L 3.5-5.2 chloride, serum [...] 214 10^3/MM^3 10*3/mm3 142-424 Lab Report: Chlamydia/GC APTIMA/[id number] - Lab chlamydia DNA probe NOT DETECTED NOT DETECTED Lab Report: Chlamydia/GC APTIMA/[id number] - Microbiology Neisseria gonorrhoeae DNA probe NOT DETECTED NOT DETECTED Lab Report: Lipid Panel - Chemistry cholesterol, serum 157 mg/dL 288-422 6457/08/22 triglyceride, serum, fasting 215 mg/dL 30-200 HDL [...] mg/dL Encounters Code Encounter Date Provider Facility CPT-40702 Level 4 Est. [facility] MEAT STUFFER [place] CPT-99112 Level 4 New Patient Yury Benoit MD [facility] 15:17:12 CDT CPT-77117 Level 3 Est. [facility]46 [facility] [place] CPT-79431 Level 4 Est. [facility]06 CD[facility] [place] CPT-35472 Level 3 Est[facility] 08:58:07 CDT 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 CPT-37787 Level 3 Est. Patient Faby Marino [facility] 14:40:56 CDT COORDINATOR OF REHABILITATION SERVICES CPT-20307 Level 4 Est. Patient Arnold Berrios [facility] 17:29:53 MEAT STUFFER 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 CPT-76223 Level 4 Est. Patient Indigo Sexton [facility] 09:51:54 MEAT STUFFER CPT-88700 Level 3 Est. Patient Indigo Sexton [facility] 18:59:38 CDT CPT-86470 Level 3 Est. Patient Joseph Pineda [facility] 14:42:12 CDT -[facility] CPT-09203 Level 3 Est. Patient Joseph Pineda [facility] 22:18:20 CDT -[facility] CPT-78735 Level 3 Est. Patient Joseph Pineda [facility] 16:46:04 CDT -[facility] CPT-59742 Level 3 Est. Patient Sage Edwin [facility] 15:39:53 CDT -[facility] CPT-27375 Level 3 Est. Patient Maite Sanchez MD [facility] 13:33:34 CDT -[facility] CPT-78047 Level 3 Est. Patient [facility] 11:37:08 CDT -[facility] CPT-52369 Level 3 Est. Patient Joseph Pineda [facility] 17:13:29 MEAT STUFFER -[facility] CPT-84835 Level 3 Est. Patient Joseph Pineda [facility] 18:42:44 CDT CPT-67229 Level 3 Est. Patient Joseph Pineda [facility] 16:25:39 CDT CPT-78854 Level 3 Est. Patient Casey ARCHIBALD [facility] 09:52:45 CDT -[facility] CPT-11210 Level 3 Est. Patient Joseph Pineda [facility] 11:03:29 MEAT STUFFER -[facility] CPT-80697 Level 3 Est. Patient Joseph Pineda [facility] 11:03:08 MEAT STUFFER -[facility] CPT-68687 Level 3 Est. Patient Joseph Edwin [facility] 14:33:31 CDT -[facility] CPT-23351 Level 3 Est. Patient Joseph Trivedi [facility] 17:05:02 MEAT STUFFER -C CPT-24769 Level 3 Est. Patient Joseph Trivedi [facility] 17:48:06 MEAT STUFFER -[facility] CPT-14492 Level 3 Est. Patient Joseph Trivedi [facility] 14:59:22 MEAT STUFFER -[facility] CPT-17724 Level 3 Est. Patient Joseph Trivedi [facility] - 21:45:56 MEAT STUFFER [place] C CPT-21288 Level 3 Est. Patient Joseph Pineda [facility] 21:29:50 CDT -C CPT-06247 Level 3 Est. Patient Joseph Pineda [facility] 12:41:09 CDT -C Procedures Code Procedure Name Date Entry Date Standard Description CPT-65392 Wet Mount - LAB USE ONLY 12:39:03 MEAT STUFFER CPT-27700 Vaginal Culture - LAB USE ONLY 12:39:03 MEAT STUFFER CPT-99607 Urine Culture - LAB USE ONLY 11:52:44 MEAT STUFFER CPT-68663 UA w micro - LAB USE ONLY 11:52:44 MEAT STUFFER CPT-48752 Postop F/U Visit 12:08:35 CDT CPT-21285 Postop F/U Visit 18:20:10 CDT CPT-A4351 [place] Female Cath 09:37:10 CDT CPT-03647 Urine Dip (Floor Use Only) 15:17:13 CDT CPT-82289 Dil F ureth int 15:17:13 CDT CPT-67756 Venipuncture Draw Fee 09:19:08 CDT CPT-13141 Lipid - LAB USE ONLY 09:19:07 CDT CPT-JTINJ Asp/Joint Injection 09:26:49 CDT CPT-55017 Chest 2V Frontal and Lat 14:47:43 CDT CPT-JTINJ Asp/Joint Injection 09:51:53 MEAT STUFFER CPT-OV Office Visit 17:39:05 CDT CPT-OV Office Visit 15:19:50 CDT CPT-07443 Sono transvag pelvis non OB uterus ovaries cervix 18:04:34 CDT CPT-70824 Venipuncture Draw Fee 08:55:49 MEAT STUFFER
--- OUTSIDE RECORDS SUMMARY | 2016-11-20 14:09 | External Medical Summary | Clinical Summary ---
:1965 Author Organization [facility] Address [address] [place] [address] Phone Allergies, Adverse Reactions, Alerts Allergy Name [...] Name Instruction VYVANSE 20 1 tablet LISDEXAMFETAMINE 29704933912 Active Joseph Pineda Active MG ORAL daily for DIMESYLATE Farooq DO CAPS binge eating disorder METFORMIN 2 tablet METFORMIN HCL 60943510786 Active Joseph Pineda Active HCL 500 MG daily for Farooq DO TB24 blood sugars LASIX 20 2 tablet by FUROSEMIDE 59878460202 Active Joseph Pineda Active MG TAB mouth daily Farooq DO CELEBREX 1 tablet by CELECOXIB 13904773605 Active Joseph Pineda Active 200 MG mouth daily Farooq DO CAPS with meals PREDNISONE 2 tablets 2 PREDNISONE 78257457556 No Joseph Pineda Active 20 MG TAB today, then 0 Longer Farooq DO 1 tablet 1 Active days 2-4 5 / 0 4 / 3 DIFLUCAN 1 tablet by 2 FLUCONAZOLE 35476225487 No Joseph W Active 100 MG TAB mouth daily 0 Longer Farooq DO x 3 days 1 Active 5 / 0 4 / 3 AMARYL 1 1 tablet GLIMEPIRIDE 80067777510 Active Joseph Pineda Active MG ORAL orally Farooq DO TABS twice daily DIFLUCAN 1 tablet by 2 FLUCONAZOLE 29843054262 No Joseph W Active 100 MG mouth every 0 Longer Farooq DO TABS other day 1 Active for 2 doses 5 / 0 1 / 2 3 ZOFRAN 4 1 po q6hr ONDANSETRON HCL 88529322992 Active Joseph Pineda Active MG TABS PRN Nausea Farooq DO PREDNISONE 2 tabs 2 PREDNISONE 56539805636 No Joseph Pineda Active 20 MG TAB daily for 3 0 Longer Farooq DO days, 1 tab 1 Active daily for 3 4 days, 1/2 / tab daily 1 for 2 days 0 / 2 5 TRAMADOL 1/2 po tid TRAMADOL HCL 23874644068 Active Joseph Pineda Active HCL 50 MG with ES Farooq DO TABS Tylenol prn pain AMOXICILLI 2 po BID x 2 AMOXICILLIN 55018488309 No Maite C Active N 500 MG 10 days 0 Longer Madril CAPS 1 Active PhD 0 / 2 0 LISINOPRIL 1 tablet by 2 LISINOPRIL 71013412396 No Maite C Active 20 MG TABS mouth 0 Longer Madril daily 1 Active PhD 0 / 1 0 POTASSIUM 2 capsule 2 POTASSIUM CHLORIDE 28446345211 No Joseph Pineda Active CHLORIDE by mouth 0 Longer Farooq DO CR 10 MEQ daily 1 Active CPCR 8 2 9 SPIRONOLAC 1 tablet by 2 SPIRONOLACTONE 34611436942 No Joseph Pineda Active TONE 25 MG mouth daily 0 Longer Farooq DO TAB 1 Active 4 / 0 8 / 2 9 METFORMIN 1 tablet 2 METFORMIN HCL 42991586757 No Joseph Pineda Active HCL 500 MG by mouth 0 Longer Farooq DO TABS twice daily 1 Active 4 / 0 8 / 2 9 AMARYL 1 1 tab twice 2 GLIMEPIRIDE 89552132270 No Joseph W Active MG TABS daily 0 Longer Farooq DO 1 Active 4 / 0 8 / 2 9 PHENTERMIN 1 po q am 2 PHENTERMINE HCL 69320616681 No Joseph W Active E HCL 37.5 for wt. 0 Longer Farooq DO MG TABS loss 1 Active 3 / 1 2 / 2 3 PROMETHAZI 1 tab by 2 PROMETHAZINE HCL 27260573960 No Joseph W Active NE HCL 25 mouth every 0 Longer Farooq DO MG TABS 6 hours as 1 Active needed 3 / 0 9 / 0 9 CIPROFLOXA Take one 2 CIPROFLOXACIN HCL 74002115630 No Joseph W Active DELORES HCL (1) tablet 0 Longer Farooq DO 500 MG by mouth 1 Active TABS twice a day 3 / 0 9 / 0 9 ABILIFY 5 one p.o. q. 2 ARIPIPRAZOLE 57199410107 No Joseph W Active MG TABS day 0 Longer Farooq DO 1 Active 3 / 0 9 / 0 9 HYDROCHLOR 2 tabs 2 HYDROCHLOROTHIAZID 19020778995 No Joseph W Active OTHIAZIDE every 0 E Longer Farooq DO 25 MG TABS morning 1 Active 3 / 0 6 / 2 7 ABILIFY 2 1 po q hs 2 ARIPIPRAZOLE 66574736349 No Joseph W Active MG TABS for major 0 Longer Farooq DO depression 1 Active 3 / 0 5 / 0 7 ADIPEX-P 1/2 tab po 2 PHENTERMINE HCL 94381910049 No Casey Active 37.5 MG q am for 0 Longer Leonarda CAPS weight loss 1 Active PA 3 / 0 5 / 0 1 CIPRO 500 1 tablet by 2 CIPROFLOXACIN HCL 55978823364 No Casey Active MG TAB mouth twice 0 Longer Leonarda daily 1 Active PA 3 / 0 5 / 0 1 NECON 1/35 1 po daily 2 NORETHINDRONE-ETH 41280330509 No Casey Active (28) 1-35 0 ESTRADIOL Longer Parker MG-MCG 1 Active PA TABS 3 / 0 5 / 0 1 TRAMADOL 1 po tid 2 TRAMADOL HCL 18117202837 No Casey Active HCL 50 MG with ES 0 Longer Parker TABS Tylenol 1 Active PA 3 / 0 5 / 0 1 FLUCONAZOL one p.o. q. 2 FLUCONAZOLE 09027605479 No Casey Active E 100 MG day 2 days 0 Longer Parker TABS 1 Active PA 3 / 0 5 / 0 1 POTASSIUM 1 capsule 2 POTASSIUM CHLORIDE 55042101856 No Casey Active CHLORIDE by mouth 0 Longer Leonarda CR 10 MEQ daily 1 Active PA CPCR 3 / 0 5 / 0 1 IMIPRAMINE Take 6 IMIPRAMINE HCL 92764823272 Active Maite C Active HCL 50 MG tablets by Madril TABS mouth at PhD bedtime DIFLUCAN 1 tablet by 2 FLUCONAZOLE 91746627867 No Joseph W Active 100 MG TAB mouth daily 0 Longer Farooq DO 1 Active 2 / 0 2 / 2 4 METOPROLOL 1/2 tab po METOPROLOL 50789176953 Active Joseph W Active TARTRATE bid TARTRATE Farooq DO 25 MG TABS VERAPAMIL 2 po bid VERAPAMIL HCL 94604906520 Active Joseph W Active HCL CR 120 Farooq DO MG TAB CR PERMETHRIN apply neck 2 PERMETHRIN 27637771760 No Joseph W Active 5 % CREA to toes 0 Longer Farooq DO tonight and 1 Active then rinse 2 off in / morning. 0 repeat at 7 1 days / 2 0 SEROQUEL one p.o. q. 2 QUETIAPINE 81788440098 No Joseph W Active XR 50 MG evening 0 FUMARATE Longer Farooq DO [id number] 1 Active 2 / 0 1 / 2 0 TRAMADOL 1-2 tablets 2 TRAMADOL HCL 43709879072 No Jospeh W Active HCL 50 MG every 6-8 0 Longer Farooq DO TABS hours as 1 Active needed for 2 pain / 0 1 / 2 0 ALPRAZOLAM one p.o. ALPRAZOLAM 68530236461 Active Joseph W Active 3 MG q.h.s. Farooq DO [id number] ALPRAZOLAM Take 1 2 ALPRAZOLAM 07661964111 No Joseph W Active XR tablet by 0 [id number] Longer Farooq DO [id number] mouth at 1 Active bedtime 1 / 2 9 DIFLUCAN 1 tablet by 2 FLUCONAZOLE 71899038734 No Joseph W Active 100 MG TAB mouth daily 0 Longer Farooq DO 1 Active 0 / 0 6 AMBIEN 10 1 tab by ZOLPIDEM TARTRATE 19161887668 Active Joseph W Active MG TAB mouth at Farooq DO bedtime as needed for sleep DIFLUCAN 100 1 tablet DIFLUCAN 19760111 FLUCONAZOLE Inactive MG TAB by mouth 100 MG TAB daily ALPRAZOLAM Take 1 ALPRAZOLAM ALPRAZOLAM Inactive XR [id number] tablet by XR [id number] mouth at [id number] bedtime TRAMADOL HCL 1-2 TRAMADOL 018446 TRAMADOL HCL Inactive 50 MG TABS tablets HCL 50 MG every 6-8 TABS hours as needed for pain SEROQUEL XR one p.o. SEROQUEL XR QUETIAPINE Inactive 50 MG q. evening 50 MG FUMARATE [id number] PERMETHRIN 5 apply neck PERMETHRIN 648710 PERMETHRIN Inactive % CREA to toes 5 % CREA tonight and then rinse off in morning. repeat at 7 days DIFLUCAN 100 1 tablet DIFLUCAN 297872 FLUCONAZOLE Inactive MG TAB by mouth 100 MG TAB daily POTASSIUM 1 capsule POTASSIUM POTASSIUM Inactive CHLORIDE CR by mouth CHLORIDE CR CHLORIDE 10 MEQ CPCR daily 10 MEQ CPCR FLUCONAZOLE one p.o. FLUCONAZOLE 19760111 FLUCONAZOLE Inactive 100 MG TABS q. day 2 100 MG TABS days TRAMADOL HCL 1 po tid TRAMADOL 850076 TRAMADOL HCL Inactive 50 MG TABS with ES HCL 50 MG Tylenol TABS NECON 1/35 1 po daily NECON /35 NORETHINDRONE- Inactive (28) 1-35 (28) 1-35 ETH ESTRADIOL MG-MCG TABS MG-MCG TABS CIPRO 500 MG 1 tablet CIPRO 500 004073 CIPROFLOXACIN Inactive TAB by mouth MG TAB HCL twice daily ADIPEX-P 1/2 tab po ADIPEX-P 808005 PHENTERMINE Inactive 37.5 MG CAPS q am for 37.5 MG HCL weight CAPS loss ABILIFY 2 MG 1 po q hs ABILIFY 2 ARIPIPRAZOLE Inactive TABS for major MG TABS depression HYDROCHLOROT 2 tabs HYDROCHLORO 033509 HYDROCHLOROTHI Inactive HIAZIDE 25 every THIAZIDE 25 AZIDE MG TABS morning MG TABS ABILIFY 5 MG one p.o. ABILIFY 5 ARIPIPRAZOLE Inactive TABS q. day MG TABS CIPROFLOXACI Take one CIPROFLOXAC 615759 CIPROFLOXACIN Inactive N HCL 500 MG (1) tablet IN HCL 500 HCL TABS by mouth MG TABS twice a day PROMETHAZINE 1 tab by PROMETHAZIN 895876 PROMETHAZINE Inactive HCL 25 MG mouth E HCL 25 MG HCL TABS every 6 TABS hours as needed PHENTERMINE 1 po q am PHENTERMINE 952494 PHENTERMINE Inactive HCL 37.5 MG for wt. HCL 37.5 MG HCL TABS loss TABS AMARYL 1 MG 1 tab AMARYL 1 MG 386671 GLIMEPIRIDE Inactive TABS twice TABS daily METFORMIN 1 tablet METFORMIN 014018 METFORMIN HCL Inactive HCL 500 MG by mouth HCL 500 MG TABS twice TABS daily SPIRONOLACTO 1 tablet SPIRONOLACT 779055 SPIRONOLACTONE Inactive NE 25 MG TAB by mouth ONE 25 MG daily TAB POTASSIUM 2 capsule POTASSIUM POTASSIUM Inactive CHLORIDE CR by mouth CHLORIDE CR CHLORIDE 10 MEQ CPCR daily 10 MEQ CPCR LISINOPRIL 1 tablet LISINOPRIL 801212 LISINOPRIL Inactive 20 MG TABS by mouth 20 MG TABS daily DIFLUCAN 100 1 tablet DIFLUCAN 264074 FLUCONAZOLE Inactive MG TABS by mouth 100 MG TABS every other day for 2 doses DIFLUCAN 100 1 tablet DIFLUCAN 047306 FLUCONAZOLE Inactive MG TAB by mouth 100 MG TAB daily x 3 days PREDNISONE 2 tablets PREDNISONE 704846 PREDNISONE Inactive 20 MG TAB today, 20 MG TAB then 1 tablet days 2-4 AMOXICILLIN 2 po BID x AMOXICILLIN 468379 AMOXICILLIN Inactive 500 MG CAPS 10 days 500 MG CAPS PREDNISONE 2 tabs PREDNISONE 672200 PREDNISONE Inactive 20 MG TAB daily for [...] Panel - Chemistry sodium, serum 137 mmol/L 908-631 1302/08/29 potassium, serum 4.1 mmol/L 3.5-5.2 chloride, serum 100 mmol/L 98-107 carbon dioxide, venous blood 31.1 mmol/L 21.0-32.0 blood glucose 138 mg/dL 65-110 calcium, serum 9.2 mg/dL 8.5-10.1 urea nitrogen, blood 9 mg/dL 7-18 creatinine, serum 0.80 mg/dL 0.60-1.30 Lab Report: CBC, Comp. Metabolic Panel, HGBA1C - Chemistry sodium, serum 140 mmol/L 681-295 1524/04/13 potassium, serum 3.9 mmol/L 3.5-5.2 chloride, serum [...] 4.3-6.0 Encounters Code Encounter Date Provider Facility CPT-15694 Level 3 Est. Patient Joseph Trivedi [facility] 22:18:20 CDT -[facility] CPT-05718 Level 3 Est. Patient Joseph Trivedi [facility] 16:46:04 CDT -[facility] CPT-29198 Level 3 Est. Patient Joseph Trivedi [facility] 15:39:53 CDT -[facility] CPT-53634 Level 3 Est. Patient Maite Sanchez MD [facility] 13:33:34 CDT -[facility] CPT-76407 Level [address] Est[address] Joseph P[address] [facility] 11:37:08 CDT -[facility] CPT-53516 Level [address] [facility] 17:13:29 [employer] -[facility] CPT-63829 Level 3 Est. [address] P[address] [facility] 18:42:44 CDT CPT-27441 Level 3 Est. [address] Joseph Pined[facility] 16:25:39 CDT CPT-26543 Level 3 Est. Patient Casey ARCHIBALD [facility] 09:52:45 CDT -[facility] CPT-40786 Level 3 Est. Patient Joseph P[address]a [facility] 11:03:29 [employer] -[facility] CPT-57002 Level 3 Est. Patient Joseph Pineda [facility] 11:03:08 [employer] -[facility] CPT-55837 Level 3 Est. Patient [place] [facility] 14:33:31 CDT -[facility] CPT-91215 Level 3 Est. Patient Joseph [facility] 17:05:02 [employer] -[facility] CPT-86585 Level 3 Est. Patient Joseph Pineda [facility] 17:48:06 [employer] -[facility] CPT-20304 Level 3 Est. Patient Joseph [facility] 14:59:22 [employer] -[facility] CPT-24938 Level 3 Est. Patient Joseph [facility] - 21:45:56 [employer] [facility] CPT-03266 Level 3 Est. Patient [facility] 21:29:50 CDT -[facility] CPT-80100 Level 3 Est. Patient [facility] 12:41:09 CDT -[facility] Procedures Code Procedure Name Date Entry Date Standard Description CPT-34524 Venipuncture Draw Fee 08:55:49 [employer]
--- OUTSIDE RECORDS SUMMARY | 2016-11-20 14:09 | External Medical Summary | Clinical Summary ---
:1965 Author Organization [facility] [employer] Address [address] [address] Phone Allergies, Adverse Reactions, Alerts Allergy Name Reaction Description Start Date Severity Status Provider NKDA Critical Active Indigo Yonickieum SHEET HEATER HELPER NKDA Critical No Longer Indigo Yokum SHEET HEATER HELPER Active NKDA Critical Inactive Adrianna Elder [...] Resolved Indigo Other malaise 05/24 07/02 Yokum SHEET HEATER HELPER and fatigue SLEEP APNEA, 327.23 Active Joseph Pineda Obstructive OBSTRUCTIVE, 06/27 06/27 Farooq DO sleep apnea MILD (adult) (pediatric) OVERWEIGHT 278.02 Inactive Joseph Pineda Overweight 06/28 06/28 Farooq DO Obesity 278.00 Active Indigo Obesity, 06/28 10/18 Yokum SHEET HEATER HELPER unspecified OTH GENERAL V70.3 Resolved Maite Gutierrez Other general MEDICAL Laura ONEAL medical EXAMINATION PhD examination for ADMIN PURPOSES administrative purposes OTHER ABNORMAL 790.29 Resolved Maite C Other abnormal GLUCOSE 05/20 Laura ONEAL glucose PhD ACUTE 466.0 Resolved Maite C Acute BRONCHITIS 09/02 Laura ONEAL bronchitis PhD DEPENDENT 782.3 Resolved Indigo Edema EDEMA, LEGS, 10/29 10/18 Yokum SHEET HEATER HELPER BILATERAL HYPOKALEMIA, 276.8 Resolved Indigo Hypopotassemia MILD 10/29 07/02 Youm SHEET HEATER HELPER Diabetes, Type 250.00 Inactive Joseph Pineda Diabetes 2 06/27 06/27 Farooq DO mellitus without mention of complication, type II or unspecified type, not stated as uncontrolled Diabetes 250.02 Resolved Indigo Diabetes mellitus, type 06/27 SHEET HEATER HELPER mellitus II, without mention uncontrolled of [...] Resolved Indigo Routine gynecological 12/14 07/02 Yo SHEET HEATER HELPER gynecological examination examination Postmenopausal 627.1 Resolved Indigo Postmenopausal bleeding 12/14 SHEET HEATER HELPER bleeding Screening for V76.51 Resolved Indigo Screening for malignant 12/26 07/02 Yokum SHEET HEATER HELPER malignant neoplasms of neoplasms of colon colon Insomnia, 307.42 Active Indigo 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 HEATER HELPER disorder of initiating or maintaining sleep Establish care V68.89 Resolved Indigo Encounters for or get 01/16 07/02 Yo SHEET HEATER HELPER other specified acquainted administrative visit purpose Weakness, left 342.90 Resolved Indigo Hemiplegia, side of body 06/20 10/18 Yokum SHEET HEATER HELPER unspecified, affecting unspecified side TIA 435.9 Active Indigo Unspecified 06/20 07/02 Yokum SHEET HEATER HELPER transient cerebral ischemia Knee pain, 719.46 Active Indigo Pain in joint bilateral 06/20 10/18 Yokum SHEET HEATER HELPER involving lower leg Bronchitis 490 Resolved Indigo Bronchitis, not 07/23 10/18 Yokum SHEET HEATER HELPER specified as acute or chronic Diabetes 357.2 Active Maliheh Polyneuropathy mellitus, 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 Knee pain, 719.46 Active Indigo Pain in joint right 06/20 10/18 Yokum SHEET HEATER HELPER involving lower leg Jesi 112.3 Active Indigo Candidiasis of intertrigo 10/09 10/18 Yokum SHEET HEATER HELPER skin and nails ABNORMAL VAGINAL ICD-626.9 Inactive Maite Sanchez BLEEDING MD PhD SCABIES ICD-133.0 Inactive Maite Sanchez PhD FATIGUE ICD-780.79 Inactive Indigo Yokum SHEET HEATER HELPER OTH GENERAL ICD-V70.3 Inactive Maite Sanchez MEDICAL PhD EXAMINATION ADMIN PURPOSES OTHER ABNORMAL ICD-790.29 Inactive Maite Sanchez GLUCOSE PhD ACUTE BRONCHITIS ICD-466.0 Inactive Maite Sanchez PhD DEPENDENT EDEMA, ICD-782.3 Inactive Indigo Yokum LEGS, BILATERAL SHEET HEATER HELPER HYPOKALEMIA, MILD ICD-276.8 Inactive Indigo Yokum SHEET HEATER HELPER Diabetes mellitus, ICD-250.02 Inactive Indigo Yokum type II, SHEET HEATER HELPER uncontrolled Sinusitis, ICD-461.1 Inactive Ismael Coyne frontal, acute Amandeep ONEAL Laryngitis, acute ICD-464.00 Inactive Ismael Coyne Amandeep ONEAL Routine ICD-V72.31 Inactive Indigo Yokum gynecological SHEET HEATER HELPER examination Postmenopausal ICD-627.1 Inactive Indigo Yokum 2015 bleeding SHEET HEATER HELPER Screening for ICD-V76.51 Inactive Indigo Yokum 2015 malignant SHEET HEATER HELPER neoplasms of colon Establish care or ICD-V68.89 Inactive Indigo Yokum get acquainted SHEET HEATER HELPER visit Weakness, left ICD-342.90 Inactive Indigo Yokum side of body SHEET HEATER HELPER Bronchitis ICD-490 Inactive Indigo Yokum SHEET HEATER HELPER Medication List Medication Instructions Start Stop Generic NDC Status Provider Patient Date Date Name Instruction NYSTATIN apply to NYSTATIN [id number] Active Indigo Active 919490 UNIT/GM rash TID Yokum CREA PRN SHEET HEATER HELPER TROKENDI XR 2 tab daily TOPIRAMATE 47146471258 Active Maliheh Active 100 MG ORAL Ziglari [id number] [facility] METOPROLOL 1 tab po METOPROLOL 74876629254 Active Indigo Active TARTRATE 25 MG bid TARTRATE Yokum TABS SHEET HEATER HELPER AZITHROMYCIN 2 po qd x 1 2 AZITHROMYCIN 27842512515 No Jillina Active 250 MG TABS day, then 1 0 Longer Frazell po qd x 4 1 Active SHEET HEATER HELPER days 6 / 0 3 / 2 6 PREDNISONE 20 2 pills 2 PREDNISONE 89196045733 No Jillina Active MG TAB daily x 4 0 Longer Frazell days 1 Active SHEET HEATER HELPER 6 / 0 3 / 2 5 PIOGLITAZONE take one a PIOGLITAZONE 24363320919 Active Maliheh Active HCL 30 MG ORAL day HCL Ziglari TABS [facility] JANUVIA 100 MG 1 tablet by 2 SITAGLIPTIN 54670182144 No Indigo Active TABS mouth daily 0 PHOSPHATE Longer Yokum 1 Active SHEET HEATER HELPER 6 / 0 2 / 6 ATORVASTATIN 1 pill by ATORVASTATIN 71392469448 Active Indigo Active CALCIUM 10 MG mouth CALCIUM Yokum TABS nightly, SHEET HEATER HELPER for cholesterol ASPIRIN 81 MG 1 po qd ASPIRIN 65849979131 Active Indigo Active ORAL TABS Yokum SHEET HEATER HELPER NITROFURANTOIN One capsule 2 NITROFURANTOI 34985148882 No Indigo Active MONOHYD MACRO BID for UTI 0 N MONOHYD Longer Yokum 100 MG CAPS 1 MACRO Active SHEET HEATER HELPER 6 / 0 / 3 METFORMIN HCL 2 tablets METFORMIN HCL 38880929579 Active Indigo Active 500 MG TB24 by mouth Yokum twice daily SHEET HEATER HELPER TRAMADOL HCL 1/2 po tid 2 TRAMADOL HCL 72127581592 No Jillina Active 50 MG TABS with ES 0 Longer Frazell Tylenol prn 1 Active SHEET HEATER HELPER pain 5 / 0 2 VYVANSE 20 MG 1 tablet 2 LISDEXAMFETAM 03725306872 No Jillina Active ORAL CAPS daily for 0 INE Longer Frazell binge 1 DIMESYLATE Active SHEET HEATER HELPER eating 5 disorder / 0 2 LASIX 20 MG 2 tablet by FUROSEMIDE 38646475597 Active Indigo Active TAB mouth daily Yokum SHEET HEATER HELPER CELEBREX 200 1 tablet by CELECOXIB 40559823271 Active Indigo Active MG CAPS mouth daily Yokum with meals SHEET HEATER HELPER PREDNISONE 20 2 tablets 2 PREDNISONE 85369712109 No Joseph W Active MG TAB today, then 0 Longer Farooq DO 1 tablet 1 Active days 2-4 5 / 0 3 DIFLUCAN 100 1 tablet by 2 FLUCONAZOLE 11904025395 No Joseph W Active MG TAB mouth daily 0 Longer Farooq DO x 3 days 1 Active 5 / 0 4 / 3 AMARYL 1 MG 1 tablet GLIMEPIRIDE 89056270048 Active Indigo Active ORAL TABS orally Yokum twice daily SHEET HEATER HELPER DIFLUCAN 100 1 tablet by 2 FLUCONAZOLE 43814349159 No Joseph W Active MG TABS mouth every 0 Longer Farooq DO other day 1 Active for 2 doses 5 / 0 1 / 2 3 ZOFRAN 4 MG 1 po q6hr ONDANSETRON 25598616539 Active Joseph W Active TABS PRN Nausea HCL Farooq DO PREDNISONE 20 2 tabs 2 PREDNISONE 95869606709 No Joseph W Active MG TAB daily for 3 0 Longer Farooq DO days, 1 tab 1 Active daily for 3 4 days, 1/2 / tab daily 1 for 2 days 0 / 2 5 AMOXICILLIN 2 po BID x 2 AMOXICILLIN 49150068092 No Maite C Active 500 MG CAPS 10 days 0 Longer Madril 1 Active PhD 0 / 2 0 LISINOPRIL 20 1 tablet by 2 LISINOPRIL 03168020643 No Maite C Active MG TABS mouth 0 Longer Madril daily 1 Active PhD 0 / 0 POTASSIUM 2 capsule 2 POTASSIUM 23368862747 No Joseph W Active CHLORIDE CR 10 by mouth 0 CHLORIDE Longer Farooq DO MEQ CPCR daily 1 Active 4 / 0 8 / 2 9 SPIRONOLACTONE 1 tablet by 2 SPIRONOLACTON 79942860959 No Joseph W Active 25 MG TAB mouth daily 0 E Longer Farooq DO 1 Active 4 / 0 8 / 2 9 METFORMIN HCL 1 tablet 2 METFORMIN HCL 44752572410 No Joseph W Active 500 MG TABS by mouth 0 Longer Farooq DO twice daily 1 Active 4 / 0 8 / 2 9 AMARYL 1 MG 1 tab twice 2 GLIMEPIRIDE 80349425736 No Joseph W Active TABS daily 0 Longer Farooq DO 1 Active 4 / 0 8 / 2 9 PHENTERMINE 1 po q am 2 PHENTERMINE 56293987157 No Joseph W Active HCL 37.5 MG for wt. 0 HCL Longer Farooq DO TABS loss 1 Active / 2 / 2 3 PROMETHAZINE 1 tab by 2 PROMETHAZINE 19054599790 No Joseph W Active HCL 25 MG TABS mouth every 0 HCL Longer Farooq DO 6 hours as 1 Active needed 3 / 0 9 / 0 9 CIPROFLOXACIN Take one 2 CIPROFLOXACIN 57116461890 No Joseph W Active HCL 500 MG (1) tablet 0 HCL Longer Farooq DO TABS by mouth 1 Active twice a day 3 / 0 9 / 0 9 ABILIFY 5 MG one p.o. q. 2 ARIPIPRAZOLE 79334595037 No Joseph W Active TABS day 0 Longer Farooq DO 1 Active 3 / 0 9 / 0 9 HYDROCHLOROTHI 2 tabs 2 HYDROCHLOROTH 58961597610 No Joseph W Active AZIDE 25 MG every 0 IAZIDE Longer Farooq DO TABS morning 1 Active 3 / 0 6 / 2 7 ABILIFY 2 MG 1 po q hs 2 ARIPIPRAZOLE 49286749475 No Joseph W Active TABS for major 0 Longer Farooq DO depression 1 Active 3 / 0 5 / 0 7 ADIPEX-P 37.5 1/2 tab po 2 PHENTERMINE 40524848509 No Casey Active MG CAPS q am for 0 HCL Longer Manquin weight loss 1 Active PA 3 / 0 5 / 0 1 CIPRO 500 MG 1 tablet by 2 CIPROFLOXACIN 03782094609 No Casey Active TAB mouth twice 0 HCL Longer Manquin daily 1 Active PA 3 / 0 5 / 0 1 NECON 1/35 1 po daily 2 NORETHINDRONE 67254487384 No Casey Active (28) 1-35 0 -ETH Longer Manquin MG-MCG TABS 1 ESTRADIOL Active PA 3 / 0 5 / 0 1 TRAMADOL HCL 1 po tid 2 TRAMADOL HCL 28633015386 No Casey Active 50 MG TABS with ES 0 Longer Manquin Tylenol 1 Active PA 3 / 0 5 / 0 1 FLUCONAZOLE one p.o. q. 2 FLUCONAZOLE 26629213612 No Casey Active 100 MG TABS day 2 days 0 Longer Manquin 1 Active PA 3 / 0 5 / 0 1 POTASSIUM 1 capsule 2 POTASSIUM 52450313947 No Casey Active CHLORIDE CR 10 by mouth 0 CHLORIDE Longer Leonarda MEQ CPCR daily 1 Active PA 3 / 0 5 / 0 1 IMIPRAMINE HCL Take 6 IMIPRAMINE 54197143499 Active Indigo Active 50 MG TABS tablets by HCL Yokum mouth at SHEET HEATER HELPER bedtime DIFLUCAN 100 1 tablet by 2 FLUCONAZOLE 40266385171 No Joseph W Active MG TAB mouth daily 0 Longer Farooq DO 1 Active 2 / 0 2 / 2 4 VERAPAMIL HCL 2 po bid VERAPAMIL HCL 58573808946 Active Indigo Active CR 120 MG TAB Yokum CR SHEET HEATER HELPER PERMETHRIN 5 % apply neck 2 PERMETHRIN 08698061261 No Joseph W Active CREA to toes 0 Longer Farooq DO tonight and 1 Active then rinse 2 off in / morning. 0 repeat at 7 1 days / 2 0 SEROQUEL XR 50 one p.o. q. 2 QUETIAPINE 02029942395 No Joseph W Active MG [id number] evening 0 FUMARATE Longer Farooq DO 1 Active 2 / 0 1 / 2 0 TRAMADOL HCL 1-2 tablets 2 TRAMADOL HCL 51467828701 No Joseph W Active 50 MG TABS every 6-8 0 Longer Farooq DO hours as 1 Active needed for 2 pain / 0 1 / 2 0 ALPRAZOLAM 3 one p.o. ALPRAZOLAM 46643954293 Active Indigo Active MG [id number] q.h.s. Yokum SHEET HEATER HELPER ALPRAZOLAM XR Take 1 2 ALPRAZOLAM 61489271450 No Joseph W Active [id number] tablet by 0 [id number] Longer Farooq DO mouth at 1 Active bedtime 1 / 2 9 DIFLUCAN 100 1 tablet by 2 FLUCONAZOLE 40418096549 No Joseph W Active MG TAB mouth daily 0 Longer Farooq DO 1 Active 0 / 0 6 AMBIEN 10 MG 1 tab by ZOLPIDEM 67492952146 Active Indigo Active TAB mouth at TARTRATE Yokum bedtime as SHEET HEATER HELPER needed for sleep DIFLUCAN 100 1 tablet DIFLUCAN 184136 FLUCONAZOLE Inactive MG TAB by mouth 100 MG TAB daily ALPRAZOLAM Take 1 ALPRAZOLAM ALPRAZOLAM Inactive XR [id number] tablet by XR [id number] mouth at [id number] bedtime TRAMADOL HCL 1-2 TRAMADOL 863539 TRAMADOL HCL Inactive 50 MG TABS tablets HCL 50 MG every 6-8 TABS hours as needed for pain SEROQUEL XR one p.o. SEROQUEL XR QUETIAPINE Inactive 50 MG q. 50 MG FUMARATE [id number] evening [id number] PERMETHRIN 5 apply PERMETHRIN 042678 PERMETHRIN Inactive % CREA neck to 5 % CREA toes tonight and then rinse off in morning. repeat at 7 days DIFLUCAN 100 1 tablet DIFLUCAN 685435 FLUCONAZOLE Inactive MG TAB by mouth 100 MG TAB daily POTASSIUM 1 capsule POTASSIUM POTASSIUM Inactive CHLORIDE CR by mouth CHLORIDE CR CHLORIDE 10 MEQ CPCR daily 10 MEQ CPCR FLUCONAZOLE one p.o. FLUCONAZOLE 19760111 FLUCONAZOLE Inactive 100 MG TABS q. day 2 100 MG TABS days TRAMADOL HCL 1 po tid TRAMADOL 667795 TRAMADOL HCL Inactive 50 MG TABS with ES HCL 50 MG Tylenol TABS NECON 1/35 1 po NECON 1/35 NORETHINDRONE- Inactive (28) 1-35 daily (28) 1-35 ETH ESTRADIOL MG-MCG TABS MG-MCG TABS CIPRO 500 MG 1 tablet CIPRO 500 755038 CIPROFLOXACIN Inactive TAB by mouth MG TAB HCL twice daily ADIPEX-P 1/2 tab ADIPEX-P 696766 PHENTERMINE Inactive 37.5 MG CAPS po q am 37.5 MG HCL for CAPS weight loss ABILIFY 2 MG 1 po q hs ABILIFY 2 042467 ARIPIPRAZOLE Inactive TABS for major MG TABS depressio n HYDROCHLOROT 2 tabs HYDROCHLORO 417336 HYDROCHLOROTHI Inactive HIAZIDE 25 every THIAZIDE 25 AZIDE MG TABS morning MG TABS ABILIFY 5 MG one p.o. ABILIFY 5 898462 ARIPIPRAZOLE Inactive TABS q. day MG TABS CIPROFLOXACI Take one CIPROFLOXAC 520053 CIPROFLOXACIN Inactive N HCL 500 MG (1) IN HCL 500 HCL TABS tablet by MG TABS mouth twice a day PROMETHAZINE 1 tab by PROMETHAZIN 108680 PROMETHAZINE Inactive HCL 25 MG mouth E HCL 25 MG HCL TABS every 6 TABS hours as needed PHENTERMINE 1 po q am PHENTERMINE 060079 PHENTERMINE Inactive HCL 37.5 MG for wt. HCL 37.5 MG HCL TABS loss TABS AMARYL 1 MG 1 tab AMARYL 1 MG 908302 GLIMEPIRIDE Inactive TABS twice TABS daily METFORMIN 1 tablet METFORMIN 285114 METFORMIN HCL Inactive HCL 500 MG by mouth HCL 500 MG TABS twice TABS daily SPIRONOLACTO 1 tablet SPIRONOLACT 614487 SPIRONOLACTONE Inactive NE 25 MG TAB by mouth ONE 25 MG daily TAB POTASSIUM 2 capsule POTASSIUM POTASSIUM Inactive CHLORIDE CR by mouth CHLORIDE CR CHLORIDE 10 MEQ CPCR daily 10 MEQ CPCR LISINOPRIL 1 tablet LISINOPRIL 728074 LISINOPRIL Inactive 20 MG TABS by mouth 20 MG TABS daily DIFLUCAN 100 1 tablet DIFLUCAN 052762 FLUCONAZOLE Inactive MG TABS by mouth 100 MG TABS every other day for 2 doses DIFLUCAN 100 1 tablet DIFLUCAN 835375 FLUCONAZOLE Inactive MG TAB by mouth 100 MG TAB daily x 3 days PREDNISONE 2 tablets PREDNISONE 205866 PREDNISONE Inactive 20 MG TAB today, 20 MG TAB then 1 tablet days 2-4 VYVANSE 20 1 tablet VYVANSE 20 LISDEXAMFETAMI Inactive MG ORAL CAPS daily for MG ORAL NE DIMESYLATE binge CAPS eating disorder TRAMADOL HCL 1/2 po TRAMADOL 982941 TRAMADOL HCL Inactive 50 MG TABS tid with HCL 50 MG ES TABS Tylenol prn pain JANUVIA 100 1 tablet JANUVIA 100 SITAGLIPTIN Inactive MG TABS by mouth MG TABS PHOSPHATE daily AMOXICILLIN 2 po BID AMOXICILLIN 599351 AMOXICILLIN Inactive 500 MG CAPS x 10 days 500 MG CAPS PREDNISONE 2 tabs PREDNISONE 002408 PREDNISONE Inactive 20 MG TAB daily for 20 MG TAB 3 days, 1 tab daily for 3 days, 1/2 tab daily for 2 days NITROFURANTO One NITROFURANT 8368193 NITROFURANTOIN Inactive IN MONOHYD capsule OIN MONOHYD MONOHYD MACRO MACRO 100 MG BID for MACRO 100 CAPS UTI MG CAPS PREDNISONE 2 pills PREDNISONE 504234 PREDNISONE Inactive 20 MG TAB daily x 4 20 MG TAB days AZITHROMYCIN 2 po qd x AZITHROMYCI 4631406 AZITHROMYCIN Inactive 250 MG TABS 1 day, [...] HGBA1C - Chemistry sodium, serum 140 mmol/L 964-283 9977/06/03 potassium, serum 3.9 mmol/L 3.5-5.2 chloride, serum [...] 198 10^3/MM^3 10*3/mm3 142-424 Lab Report: Chlamydia/GC APTIMA/[id number] - Lab chlamydia DNA probe NOT DETECTED NOT DETECTED Lab Report: Chlamydia/GC APTIMA/[id number] - Microbiology Neisseria gonorrhoeae DNA probe NOT DETECTED NOT DETECTED Lab Report: Comp. Metabolic Panel, Lipid Panel - Chemistry sodium, serum 136 mmol/L 645-630 9222/01/04 carbon dioxide, venous blood 27.0 mmol/L 21.0-32.0 potassium, serum 4.6 mmol/L 3.5-5.2 chloride, serum 98 mmol/L 98-107 blood glucose 174 mg/dL 65-110 urea nitrogen, blood 12 mg/dL 7-18 creatinine, serum 0.78 mg/dL 0.55-1.30 alanine aminotransferase (SGPT), serum 65 U/L 12-78 aspartate aminotransferase (SGOT), serum 34 U/L 15-37 calcium, serum 8.9 mg/dL 8.5-10.1 bilirubin, serum, total 0.40 mg/dL 0.00-1.00 cholesterol, serum 219 mg/dL 637-663 7223/01/04 triglyceride, serum, fasting 214 mg/dL 30-200 HDL [...] mg/g mg/g{creat} 0-29 sodium, serum 140 mmol/L 110-651 1163/07/21 potassium, serum 3.9 mmol/L 3.5-5.2 chloride, serum [...] mg/dL Encounters Code Encounter Date Provider Facility CPT-30821 Level 4 Est. Patient Indigo Sexton [facility][note 3] - 10:01:06 CDT [place] CPT-76879 Level 3 Est. Patient Arnold Berrios [facility] 08:58:07 CDT [facility] CPT-54341 Level 3 Est. Patient Faby Marino [facility] 14:40:56 CDT SHEET HEATER HELPER CPT-89956 Level 4 Est. Patient Arnold Berrios [facility] 17:29:53 [facility] CPT-13024 Level 4 Est. Patient Indigo Sexton [facility][note 3] 09:51:54 [facility] CPT-76025 Level 3 Est. Patient Indigo Sexton [facility][note 3] 18:59:38 CDT CPT-43248 Level 3 Est. Patient Joseph Pineda [facility] 14:42:12 CDT -[facility] CPT-90315 Level 3 Est. Patient Joseph Pineda [facility] 22:18:20 CDT -[facility] CPT-91620 Level 3 Est. Patient Joseph Pineda [facility] 16:46:04 CDT -[facility] CPT-11545 Level 3 Est. Patient [place] [facility] 15:39:53 CDT -[facility] CPT-90483 Level 3 Est. Patient Maite Sanchez MD [facility] 13:33:34 CDT -[facility] CPT-87635 Level 3 Est. Patient Joseph Pineda [facility] 11:37:08 CDT -[facility] CPT-13784 Level 3 Est. Patient Joseph Pineda [facility] 17:13:29 [facility] -[facility] CPT-57403 Level 3 Est. Patient Joseph Pineda [facility] 18:42:44 CDT CPT-79789 Level 3 Est. Patient Joseph Pineda [facility] 16:25:39 CDT CPT-16586 Level 3 Est. Patient Casey ARCHIBALD [facility] 09:52:45 CDT -[facility] CPT-32226 Level 3 Est. Patient Joseph Pineda [facility] 11:03:29 [facility] -[facility] CPT-91442 Level 3 Est. Patient [facility] 11:03:08 [facility] -[facility] CPT-77725 Level 3 Est. Patient Joseph Pineda [facility] 14:33:31 CDT -[facility] CPT-22713 Level 3 Est. Patient Joseph Pineda [facility] 17:05:02 [facility] -[facility] CPT-32282 Level 3 Est. Patient Joseph Pineda [facility] 17:48:06 [facility] -[facility] CPT-26549 Level 3 Est. Patient Joseph Pineda [facility] 14:59:22 [facility] -[facility] CPT-14844 Level 3 Est. Patient Joseph Pineda [facility] - 21:45:56 [facility] [place] [facility] CPT-36441 Level 3 Est. Patient Joseph Pineda [facility] 21:29:50 CDT -[facility] CPT-26529 Level 3 Est. Patient Joseph Pineda [facility] 12:41:09 CDT -[facility] Procedures Code Procedure Name Date Entry Date Standard Description CPT-JTINJ Asp/Joint Injection 09:26:49 CDT CPT-62312 Chest 2V Frontal and Lat 14:47:43 CDT CPT-JTINJ Asp/Joint Injection 09:51:53 [facility] CPT-OV Office Visit 17:39:05 CDT CPT-OV Office Visit 15:19:50 CDT CPT-43285 Sono transvag pelvis non OB uterus ovaries cervix 18:04:34 CDT CPT-53813 Venipuncture Draw Fee 08:55:49 [facility]
--- OUTSIDE RECORDS SUMMARY | 2016-11-20 14:10 | External Medical Summary | Clinical Summary ---
:1965 Author Organization [facility] Address [address] [place] [address] Phone Allergies, Adverse Reactions, Alerts Allergy Name Reaction Description Start Date Severity Status Provider NKDA Critical No Longer Indigo Yokum ROOFER GYPSUM Active NKDA Critical Inactive Adrianna Elder Conditions [...] Resolved Indigo Other malaise 05/24 07/02 Yokum ROOFER GYPSUM and fatigue SLEEP APNEA, 327.23 Active Joseph Pineda Obstructive OBSTRUCTIVE, 06/27 06/27 Farooq CORDERO sleep apnea MILD (adult) (pediatric) OVERWEIGHT 278.02 Active Joseph Pineda Overweight 06/28 06/28 Farooq OTH GENERAL V70.3 Resolved Maite Gutierrez Other general MEDICAL Laura ONEAL medical EXAMINATION PhD examination for ADMIN PURPOSES administrative purposes OTHER ABNORMAL 790.29 Resolved Maite Gutierrez Other abnormal GLUCOSE 05/20 aLura ONEAL glucose PhD ACUTE 466.0 Resolved Maite Gutierrez Acute BRONCHITIS 09/02 Laura ONEAL bronchitis PhD DEPENDENT 782.3 Active Joseph Pineda Edema EDEMA, LEGS, 10/29 10/29 Farooq DO BILATERAL HYPOKALEMIA, 276.8 Resolved Indigo Hypopotassemia MILD 10/29 07/02 Yo ROOFER GYPSUM Diabetes, Type 250.00 Inactive Joseph Pineda Diabetes 2 06/27 06/27 Farooq DO mellitus without mention of complication, type II or unspecified type, not stated as uncontrolled Diabetes 250.02 Active Indigo Diabetes mellitus, type 06/27um ROOFER GYPSUM mellitus II, without mention uncontrolled of complication, [...] Resolved Indigo Routine gynecological 12/14 07/02 Yo ROOFER GYPSUM gynecological examination examination Postmenopausal 627.1 Resolved Indigo Postmenopausal bleeding 12/14 07/02 Youm ROOFER GYPSUM bleeding Screening for V76.51 Resolved Indigo Screening for malignant 12/26 07/02 Yokum ROOFER GYPSUM malignant neoplasms of neoplasms of colon colon Insomnia, 307.42 Active Indigo 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 GYPSUM disorder of initiating or maintaining sleep Establish care V68.89 Resolved Indigo Encounters for or get 01/16 07/02 Yo ROOFER GYPSUM other specified acquainted administrative visit purpose Weakness, left 342.90 Active Indigo Hemiplegia, side of body 06/20 06/20 Yokum ROOFER GYPSUM unspecified, affecting unspecified side TIA 435.9 Active Indigo Unspecified 06/20 07/02 Yokum ROOFER GYPSUM transient cerebral ischemia Knee pain, 719.46 Active Indigo Pain in joint bilateral 06/20 07/02 Yokum ROOFER GYPSUM involving lower leg Bronchitis 490 Active Jillina Bronchitis, not 07/23 07/23 Frazell specified as ROOFER GYPSUM acute or chronic ABNORMAL VAGINAL ICD-626.9 Inactive Maite Matt Sanchez BLEEDING PhD SCABIES ICD-133.0 Inactive Maite C Laura MD PhD FATIGUE ICD-780.79 Inactive Indigo Yokum ROOFER GYPSUM OTH GENERAL ICD-V70.3 Inactive Maite C Laura MEDICAL MD PhD EXAMINATION ADMIN PURPOSES OTHER ABNORMAL ICD-790.29 Inactive Maite C Laura GLUCOSE MD PhD ACUTE BRONCHITIS ICD-466.0 Inactive Maite C Laura PhD HYPOKALEMIA, MILD ICD-276.8 Inactive Indigo Yokum ROOFER GYPSUM Sinusitis, ICD-461.1 Inactive Ismael Coyne frontal, acute Amandeep ONEAL Laryngitis, acute ICD-464.00 Inactive Ismael Coyne Amandeep ONEAL Routine ICD-V72.31 Inactive Indigo Yokum gynecological ROOFER GYPSUM examination Postmenopausal ICD-627.1 Inactive Indigo Yokum 2015 bleeding ROOFER GYPSUM Screening for ICD-V76.51 Inactive Indigo Yokum 2015 malignant ROOFER GYPSUM neoplasms of colon Establish care or ICD-V68.89 Inactive Indigo Yokum get acquainted ROOFER GYPSUM visit Medication List Medication Instructions Start Stop Generic NDC Status Provider Patient Date Date Name Instruction AZITHROMYCIN 2 po AZITHROMYCIN 68081546411 Active Jillina Active 250 MG TABS qd x Frazell 1 ROOFER GYPSUM day, then 1 po qd x 4 days PREDNISONE 20 2 PREDNISONE 97958371080 Active Jillina Active MG TAB pills Frazell daily ROOFER GYPSUM x 4 days PIOGLITAZONE take PIOGLITAZONE 62405639693 Active Maliheh Active HCL 30 MG one a HCL Ziglari ORAL 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 JANUVIA 100 1 SITAGLIPTIN 13127712147 No Indigo Active MG TABS table PHOSPHATE Longer Yokum t by Active ROOFER GYPSUM mouth daily ATORVASTATIN 1 ATORVASTATIN 40431449448 Active Indigo Active CALCIUM 10 MG pill CALCIUM Yokum TABS by ROOFER GYPSUM mouth night ly, for lavelle stero l TROKENDI XR 1 tab TOPIRAMATE 98682375590 Active Indigo Active 100 MG ORAL daily Yokum [id number] ROOFER GYPSUM ASPIRIN 81 MG 1 po ASPIRIN 09159763649 Active Indigo Active ORAL TABS qd Yokum ROOFER GYPSUM NITROFURANTOI One NITROFURANTOI 57206886939 No Indigo Active N MONOHYD capsu N MONOHYD Longer Yokum MACRO 100 MG le MACRO Active ROOFER GYPSUM CAPS BID for UTI METFORMIN HCL 2 METFORMIN HCL 69477544419 Active Indigo Active 500 MG TB24 table Yokum ts by ROOFER GYPSUM mouth twice daily TRAMADOL HCL 1/2 TRAMADOL HCL 44168517441 No Jillina Active 50 MG TABS po Longer [place] tid Active ROOFER GYPSUM with ES Tylen ol prn pain VYVANSE 20 MG 1 LISDEXAMFETAM 95331985174 No Jillina Active ORAL CAPS table INE Longer [place] t DIMESYLATE Active ROOFER GYPSUM daily for binge eatin g disor janiya LASIX 20 MG 2 FUROSEMIDE 27648358312 Active Joseph W Active TAB table Farooq DO t by mouth daily CELEBREX 200 1 CELECOXIB 96554156024 Active Joseph W Active MG CAPS table Farooq DO t by mouth daily with meals PREDNISONE 20 2 PREDNISONE 01637499533 No Joseph W Active MG TAB table Longer Farooq DO ts Active today , then 1 table t days 2-4 DIFLUCAN 100 1 FLUCONAZOLE 49322782407 No Joseph W Active MG TAB table Longer Farooq DO t by Active mouth daily x 3 days AMARYL 1 MG 1 GLIMEPIRIDE 90522142488 Active Joseph W Active ORAL TABS table Farooq DO t orall y twice daily DIFLUCAN 100 1 FLUCONAZOLE 63222416807 No Joseph W Active MG TABS table Longer Farooq DO t by Active mouth every other day for 2 doses ZOFRAN 4 MG 1 po ONDANSETRON 51379791967 Active Joseph Pineda Active TABS q6hr HCL Farooq DO PRN Nause a PREDNISONE 20 2 PREDNISONE 60967806573 No Joseph Pineda Active MG TAB tabs Longer Farooq DO daily Active for 3 days, 1 tab daily for 3 days, 1/2 tab daily for 2 days AMOXICILLIN 2 po AMOXICILLIN 36115106230 No Maite C Active 500 MG CAPS BID x Longer Madril 10 Active PhD days LISINOPRIL 20 1 LISINOPRIL 52119404873 No Maite C Active MG TABS table Longer Madril t by Active PhD mouth chilo y POTASSIUM 2 POTASSIUM 98825986204 No Joseph Pineda Active CHLORIDE CR capsu CHLORIDE Longer Farooq DO 10 MEQ CPCR le by Active mouth daily SPIRONOLACTON 1 SPIRONOLACTON 32503999829 No Joseph Pineda Active E 25 MG TAB table E Longer Farooq DO t by Active mouth daily METFORMIN HCL 1 METFORMIN HCL 93219583880 No Joseph Pineda Active 500 MG TABS table Longer Farooq DO t by Active mouth twice daily AMARYL 1 MG 1 tab GLIMEPIRIDE 21022222936 No Joseph Pineda Active TABS twice Longer Farooq DO daily Active PHENTERMINE 1 po PHENTERMINE 21834540810 No Joseph W Active HCL 37.5 MG q am HCL Longer Farooq DO TABS for Active wt. loss PROMETHAZINE 1 tab PROMETHAZINE 90044608358 No Joseph W Active HCL 25 MG by HCL Longer Farooq DO TABS mouth Active every 6 hours as neede d CIPROFLOXACIN Take CIPROFLOXACIN 53169738658 No Joseph W Active HCL 500 MG one HCL Longer Farooq DO TABS (1) Active table t by mouth twice a day ABILIFY 5 MG one ARIPIPRAZOLE 85603899950 No Joseph W Active TABS p.o. Longer Farooq DO q. Active day HYDROCHLOROTH 2 HYDROCHLOROTH 48436925015 No Jsoeph W Active IAZIDE 25 MG tabs IAZIDE Longer Farooq DO TABS every Active morni ng ABILIFY 2 MG 1 po ARIPIPRAZOLE 66467231359 No Joseph W Active TABS q hs Longer Farooq DO for Active major depre ssion ADIPEX-P 37.5 / PHENTERMINE 11262033180 No Casey Active MG CAPS tab HCL Longer Leonarda po q Active PA am for weigh t loss CIPRO 500 MG 1 CIPROFLOXACIN 92090604081 No Casey Active TAB table HCL Long[place] t by Active PA mouth twice daily NECON 35 1 po NORETHINDRONE 54846730081 No Casey Active (28) 1-35 daily -ETH Longer [place] MG-MCG TABS ESTRADIOL Active PA TRAMADOL HCL 1 po TRAMADOL HCL 94473156478 No Casey Active 50 MG TABS tid Longer Leonarda with Active PA ES Tylen ol FLUCONAZOLE one FLUCONAZOLE 69483130564 No Casey Active 100 MG TABS p.o. Longer [place] q. Active PA day 2 days POTASSIUM 1 POTASSIUM 14791638991 No Casey Active CHLORIDE CR capsu CHLORIDE Longer Leonarda 10 MEQ CPCR le by Active PA mouth daily IMIPRAMINE Take IMIPRAMINE 52335702810 Active Joseph W Active HCL 50 MG 6 HCL Farooq DO TABS table ts by mouth at bedti me DIFLUCAN 100 1 FLUCONAZOLE 27090114134 No Joseph W Active MG TAB table Longer Farooq DO t by Active mouth daily METOPROLOL 1/2 METOPROLOL 55566569199 Active Joseph W Active TARTRATE 25 tab TARTRATE Farooq DO MG TABS po bid VERAPAMIL HCL 2 po VERAPAMIL HCL 66639422376 Active Joseph W Active CR 120 MG TAB bid Farooq DO CR PERMETHRIN 5 apply PERMETHRIN 87137092470 No Joseph W Active % CREA neck Longer Farooq DO to Active toes tonig ht and then rinse off in morni ng. repea t at 7 days SEROQUEL XR one QUETIAPINE 58057451342 No Joseph W Active 50 MG p.o. FUMARATE Longer Farooq DO [id number] q. Active eveni ng TRAMADOL HCL 1-2 TRAMADOL HCL 98958434723 No Joseph W Active 50 MG TABS table Longer Farooq DO ts Active every 6-8 hours as neede d for pain ALPRAZOLAM 3 one ALPRAZOLAM 79024640069 Active Indigo Active MG [id number] p.o. Yokum q.h.s ROOFER GYPSUM . ALPRAZOLAM XR Take ALPRAZOLAM 83990917271 No Joseph W Active [id number] 1 [id number] Longer Farooq DO table Active t by mouth at bedti me DIFLUCAN 100 1 FLUCONAZOLE 33439555845 No Joseph W Active MG TAB table Longer Farooq DO t by Active mouth daily AMBIEN 10 MG 1 tab ZOLPIDEM 91046177638 Active Afsaneh Active TAB by TARTRATE Gericke, mouth MA at bedti me as neede d for sleep DIFLUCAN 100 1 tablet DIFLUCAN 389156 FLUCONAZOLE Inactive MG TAB by mouth 100 MG TAB daily ALPRAZOLAM Take 1 ALPRAZOLAM ALPRAZOLAM Inactive XR [id number] tablet by XR [id number] mouth at [id number] bedtime TRAMADOL HCL 1-2 TRAMADOL 286478 TRAMADOL HCL Inactive 50 MG TABS tablets HCL 50 MG every 6-8 TABS hours as needed for pain SEROQUEL XR one p.o. SEROQUEL XR QUETIAPINE Inactive 50 MG q. 50 MG FUMARATE [id number] evening [id number] PERMETHRIN 5 apply PERMETHRIN 157989 PERMETHRIN Inactive % CREA neck to 5 % CREA toes tonight and then rinse off in morning. repeat at 7 days DIFLUCAN 100 1 tablet DIFLUCAN 799062 FLUCONAZOLE Inactive MG TAB by mouth 100 MG TAB daily POTASSIUM 1 capsule POTASSIUM POTASSIUM Inactive CHLORIDE CR by mouth CHLORIDE CR CHLORIDE 10 MEQ CPCR daily 10 MEQ CPCR FLUCONAZOLE one p.o. FLUCONAZOLE 19760111 FLUCONAZOLE Inactive 100 MG TABS q. day 2 100 MG TABS days TRAMADOL HCL 1 po tid TRAMADOL 669575 TRAMADOL HCL Inactive 50 MG TABS with ES HCL 50 MG Tylenol TABS NECON 1/35 1 po NECON 1/35 NORETHINDRONE- Inactive (28) 1-35 daily (28) 1-35 ETH ESTRADIOL MG-MCG TABS MG-MCG TABS CIPRO 500 MG 1 tablet CIPRO 500 984964 CIPROFLOXACIN Inactive TAB by mouth MG TAB HCL twice daily ADIPEX-P 1/2 tab ADIPEX-P 664818 PHENTERMINE Inactive 37.5 MG CAPS po q am 37.5 MG HCL for CAPS weight loss ABILIFY 2 MG 1 po q hs ABILIFY 2 707934 ARIPIPRAZOLE Inactive TABS for major MG TABS depressio n HYDROCHLOROT 2 tabs HYDROCHLORO 777122 HYDROCHLOROTHI Inactive HIAZIDE 25 every THIAZIDE 25 AZIDE MG TABS morning MG TABS ABILIFY 5 MG one p.o. ABILIFY 5 531949 ARIPIPRAZOLE Inactive TABS q. day MG TABS CIPROFLOXACI Take one CIPROFLOXAC 878323 CIPROFLOXACIN Inactive N HCL 500 MG (1) IN HCL 500 HCL TABS tablet by MG TABS mouth twice a day PROMETHAZINE 1 tab by PROMETHAZIN 934521 PROMETHAZINE Inactive HCL 25 MG mouth E HCL 25 MG HCL TABS every 6 TABS hours as needed PHENTERMINE 1 po q am PHENTERMINE 455448 PHENTERMINE Inactive HCL 37.5 MG for wt. HCL 37.5 MG HCL TABS loss TABS AMARYL 1 MG 1 tab AMARYL 1 MG 733366 GLIMEPIRIDE Inactive TABS twice TABS daily METFORMIN 1 tablet METFORMIN 173226 METFORMIN HCL Inactive HCL 500 MG by mouth HCL 500 MG TABS twice TABS daily SPIRONOLACTO 1 tablet SPIRONOLACT 311862 SPIRONOLACTONE Inactive NE 25 MG TAB by mouth ONE 25 MG daily TAB POTASSIUM 2 capsule POTASSIUM POTASSIUM Inactive CHLORIDE CR by mouth CHLORIDE CR CHLORIDE 10 MEQ CPCR daily 10 MEQ CPCR LISINOPRIL 1 tablet LISINOPRIL 912639 LISINOPRIL Inactive 20 MG TABS by mouth 20 MG TABS daily DIFLUCAN 100 1 tablet DIFLUCAN 578637 FLUCONAZOLE Inactive MG TABS by mouth 100 MG TABS every other day for 2 doses DIFLUCAN 100 1 tablet DIFLUCAN 035168 FLUCONAZOLE Inactive MG TAB by mouth 100 MG TAB daily x 3 days PREDNISONE 2 tablets PREDNISONE 979513 PREDNISONE Inactive 20 MG TAB today, 20 MG TAB then 1 tablet days 2-4 VYVANSE 20 1 tablet VYVANSE 20 LISDEXAMFETAMI Inactive MG ORAL CAPS daily for MG ORAL NE DIMESYLATE binge CAPS eating disorder TRAMADOL HCL 1/2 po TRAMADOL 409020 TRAMADOL HCL Inactive 50 MG TABS tid with HCL 50 MG ES TABS Tylenol prn pain JANUVIA 100 1 tablet JANUVIA 100 SITAGLIPTIN Inactive MG TABS by mouth MG TABS PHOSPHATE daily AMOXICILLIN 2 po BID AMOXICILLIN 226869 AMOXICILLIN Inactive 500 MG CAPS x 10 days 500 MG CAPS PREDNISONE 2 tabs PREDNISONE 951097 PREDNISONE Inactive 20 MG TAB daily for 20 MG TAB 3 days, 1 tab daily for 3 days, 1/2 tab daily for 2 days NITROFURANTO One NITROFURANT 5599753 NITROFURANTOIN Inactive IN MONOHYD capsule OIN MONOHYD [...] HGBA1C - Chemistry sodium, serum 140 mmol/L 042-213 8042/04/13 potassium, serum 3.9 mmol/L 3.5-5.2 chloride, serum [...] 198 10^3/MM^3 10*3/mm3 142-424 Lab Report: Chlamydia/GC APTIMA/[id number] - Lab chlamydia DNA probe NOT DETECTED NOT DETECTED Lab Report: Chlamydia/GC APTIMA/03287 - Microbiology Neisseria gonorrhoeae DNA probe NOT DETECTED NOT DETECTED Lab Report: Comp. Metabolic Panel, Lipid Panel - Chemistry sodium, serum 136 mmol/L 129-667 8038/01/04 carbon dioxide, venous blood 27.0 mmol/L 21.0-32.0 potassium, serum 4.6 mmol/L 3.5-5.2 chloride, serum 98 mmol/L 98-107 blood glucose 174 mg/dL 65-110 urea nitrogen, blood 12 mg/dL 7-18 creatinine, serum 0.78 mg/dL 0.55-1.30 alanine aminotransferase (SGPT), serum 65 U/L 12-78 aspartate aminotransferase (SGOT), serum 34 U/L 15-37 calcium, serum 8.9 mg/dL 8.5-10.1 bilirubin, serum, total 0.40 mg/dL 0.00-1.00 cholesterol, serum 219 mg/dL 466-021 4140/01/04 triglyceride, serum, fasting 214 mg/dL 30-200 HDL [...] mg/g mg/g{creat} 0-29 sodium, serum 140 mmol/L 376-199 3298/07/21 potassium, serum 3.9 mmol/L 3.5-5.2 chloride, serum [...] Yes Encounters Code Encounter Date Provider Facility CPT-24586 Level 3 Est. Patient Faby Marino [facility] 14:40:56 CDT [facility] CPT-79245 Level 4 Est. 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 CPT-85136 Level 3 Est. Patient Indigo Garciaomi [facility] 18:59:38 CDT CPT-09323 Level 3 Est. Patient [facility] 14:42:12 CDT -[facility] CPT-43020 Level 3 Est. Patient [facility] 22:18:20 CDT -[facility] CPT-24183 Level 3 Est. Patient [facility] 16:46:04 CDT -[facility] CPT-33849 Level 3 Est. Patient [facility] 15:39:53 CDT -[facility] CPT-20692 Level 3 Est. Patient Maite Sanchez MD [facility] 13:33:34 CDT -[facility] CPT-66314 Level 3 Est. Patient [facility] 11:37:08 CDT -[facility] CPT-83575 Level 3 Est. Patient Joseph Edwin [facility] 17:13:29 LINTER TENDER -[facility] CPT-99803 Level 3 Est. Patient Joseph Edwin [facility] 18:42:44 CDT CPT-01452 Level 3 Est. Patient [facility] 16:25:39 CDT CPT-39475 Level 3 Est. Patient Casey ARCHIBALD [facility] 09:52:45 CDT -[facility] CPT-67559 Level 3 Est. Patient [facility] 11:03:29 LINTER TENDER -[facility] CPT-11090 Level 3 Est. Patient [facility] 11:03:08 LINTER TENDER -[facility] CPT-23863 Level 3 Est. Patient [facility] 14:33:31 CDT -[facility] CPT-79297 Level 3 Est. Patient [facility] 17:05:02 LINTER TENDER -[facility] CPT-55886 Level 3 Est. Patient [facility] 17:48:06 LINTER TENDER -[facility] CPT-86071 Level 3 Est. Patient [facility] 14:59:22 LINTER TENDER -[facility] CPT-42517 Level 3 Est. Patient [facility] - 21:45:56 LINTER TENDER Yancey [facility] CPT-88582 Level 3 Est. Patient [facility] 21:29:50 CDT -[facility] CPT-34936 Level 3 Est. Patient [facility] 12:41:09 CDT -[facility] Procedures Code Procedure Name Date Entry Date Standard Description CPT-48277 Chest 2V Frontal and Lat 14:47:43 CDT CPT-JTINJ Asp/Joint Injection 09:51:53 LINTER TENDER CPT-OV Office Visit 17:39:05 CDT CPT-OV Office Visit 15:19:50 CDT CPT-67130 Sono transvag pelvis non OB uterus ovaries cervix 18:04:34 CDT CPT-32730 Venipuncture Draw Fee 08:55:49 LINTER TENDER
--- OUTSIDE RECORDS SUMMARY | 2016-11-20 14:10 | External Medical Summary | Clinical Summary ---
:1965 Author Organization [facility] Address [address] [place] [address] Phone Allergies, Adverse Reactions, Alerts Allergy Name [...] Name Instruction VYVANSE 20 1 tablet LISDEXAMFETAMINE 06598178085 Active Leonard Active MG ORAL daily for 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 METFORMIN 2 tablet METFORMIN HCL 64438576952 Active Joseph Pineda Active HCL 500 MG daily for Farooq DO TB24 blood sugars LASIX 20 2 tablet by FUROSEMIDE 51880774222 Active Joseph Pineda Active MG TAB mouth daily Farooq DO CELEBREX 1 tablet by CELECOXIB 29822530434 Active Joseph Pineda Active 200 MG mouth daily Farooq DO CAPS with meals PREDNISONE 2 tablets 2 PREDNISONE 15800691243 No Joseph Pineda Active 20 MG TAB today, then 0 Longer Farooq DO 1 tablet 1 Active days 2-4 5 / 0 4 / 3 DIFLUCAN 1 tablet by 2 FLUCONAZOLE 10955475548 No Joseph W Active 100 MG TAB mouth daily 0 Longer Farooq DO x 3 days 1 Active 5 / 0 4 / 3 AMARYL 1 1 tablet GLIMEPIRIDE 89454639499 Active Joseph Pineda Active MG ORAL orally Farooq DO TABS twice daily DIFLUCAN 1 tablet by 2 FLUCONAZOLE 80163693481 No Joseph W Active 100 MG mouth every 0 Longer Farooq DO TABS other day 1 Active for 2 doses 5 / 0 1 / 2 3 ZOFRAN 4 1 po q6hr ONDANSETRON HCL 10147429403 Active Bam Active MG TABS PRN Nausea W Luis ONEAL PREDNISONE 2 tabs 2 PREDNISONE 23529078815 No Joseph Pineda Active 20 MG TAB daily for 3 0 Longer Farooq DO days, 1 tab 1 Active daily for 3 4 days, 1/2 / tab daily 1 for 2 days 0 / 2 5 TRAMADOL 1/2 po tid TRAMADOL HCL 74232922485 Active Joseph Pineda Active HCL 50 MG with ES Farooq DO TABS Tylenol prn pain AMOXICILLI 2 po BID x 2 AMOXICILLIN 42861102750 No Maite C Active N 500 MG 10 days 0 Longer Madril CAPS 1 Active PhD 0 / 2 0 LISINOPRIL 1 tablet by 2 LISINOPRIL 98716304239 No Maite C Active 20 MG TABS mouth 0 Longer Madril daily 1 Active PhD 0 / 1 0 POTASSIUM 2 capsule 2 POTASSIUM CHLORIDE 69519551161 No Joseph Pineda Active CHLORIDE by mouth 0 Longer Farooq DO CR 10 MEQ daily 1 Active CPCR 8 2 9 SPIRONOLAC 1 tablet by 2 SPIRONOLACTONE 58160369628 No Joseph Pineda Active TONE 25 MG mouth daily 0 Longer Farooq DO TAB 1 Active 4 / 0 8 / 2 9 METFORMIN 1 tablet 2 METFORMIN HCL 60661273199 No Joseph Pineda Active HCL 500 MG by mouth 0 Longer Farooq DO TABS twice daily 1 Active 4 / 0 8 / 2 9 AMARYL 1 1 tab twice 2 GLIMEPIRIDE 73284504823 No Joseph W Active MG TABS daily 0 Longer Farooq DO 1 Active 4 / 0 8 / 2 9 PHENTERMIN 1 po q am 2 PHENTERMINE HCL 63161586020 No Joseph W Active E HCL 37.5 for wt. 0 Longer Farooq DO MG TABS loss 1 Active 3 / 1 2 / 2 3 PROMETHAZI 1 tab by 2 PROMETHAZINE HCL 30195205029 No Joseph W Active NE HCL 25 mouth every 0 Longer Farooq DO MG TABS 6 hours as 1 Active needed 3 / 0 9 / 0 9 CIPROFLOXA Take one 2 CIPROFLOXACIN HCL 90530992617 No Joseph W Active DELORES HCL (1) tablet 0 Longer Farooq DO 500 MG by mouth 1 Active TABS twice a day 3 / 0 9 / 0 9 ABILIFY 5 one p.o. q. 2 ARIPIPRAZOLE 88835473495 No Joseph W Active MG TABS day 0 Longer Farooq DO 1 Active 3 / 0 9 / 0 9 HYDROCHLOR 2 tabs 2 HYDROCHLOROTHIAZID 28991391234 No Joseph W Active OTHIAZIDE every 0 E Longer Farooq DO 25 MG TABS morning 1 Active 3 / 0 6 / 2 7 ABILIFY 2 1 po q hs 2 ARIPIPRAZOLE 61084319725 No Joseph W Active MG TABS for major 0 Longer Farooq DO depression 1 Active 3 / 0 5 / 0 7 ADIPEX-P 1/2 tab po 2 PHENTERMINE HCL 75090340921 No Casey Active 37.5 MG q am for 0 Longer [place] CAPS weight loss 1 Active PA 3 / 0 5 / 0 1 CIPRO 500 1 tablet by 2 CIPROFLOXACIN HCL 08140203413 No Casey Active MG TAB mouth twice 0 Longer Leonarda daily 1 Active PA 3 / 0 5 / 0 1 NECON 1/35 1 po daily 2 NORETHINDRONE-ETH 16194008092 No Casey Active (28) 1-35 0 ESTRADIOL Longer Leonarda MG-MCG 1 Active PA TABS 3 / 0 5 / 0 1 TRAMADOL 1 po tid 2 TRAMADOL HCL 10832241809 No Casey Active HCL 50 MG with ES 0 Longer Leonarda TABS Tylenol 1 Active PA 3 / 0 5 / 0 1 FLUCONAZOL one p.o. q. 2 FLUCONAZOLE 97677571021 No Casey Active E 100 MG day 2 days 0 Longer Leonarda TABS 1 Active PA 3 / 0 5 / 0 1 POTASSIUM 1 capsule 2 POTASSIUM CHLORIDE 70306618827 No Casey Active CHLORIDE by mouth 0 Longer [place] CR 10 MEQ daily 1 Active PA CPCR 3 / 0 5 / 0 1 IMIPRAMINE Take 6 IMIPRAMINE HCL 68885734873 Active Bam Active HCL 50 MG tablets by W TABS mouth at [place] bedtime DIFLUCAN 1 tablet by 2 FLUCONAZOLE 09403387999 No Joseph W Active 100 MG TAB mouth daily 0 Longer Farooq DO 1 Active 2 / 0 2 / 2 4 METOPROLOL 1/2 tab po METOPROLOL 72549251169 Active Joseph W Active TARTRATE bid TARTRATE Farooq DO 25 MG TABS VERAPAMIL 2 po bid VERAPAMIL HCL 95058271774 Active Joseph W Active HCL CR 120 Farooq DO MG TAB CR PERMETHRIN apply neck 2 PERMETHRIN 31809853017 No Joseph W Active 5 % CREA to toes 0 Longer Farooq DO tonight and 1 Active then rinse 2 off in / morning. 0 repeat at 7 1 days / 2 0 SEROQUEL one p.o. q. 2 QUETIAPINE 08078035039 No Joseph W Active XR 50 MG evening 0 FUMARATE Longer Farooq DO [id number] 1 Active 2 / 0 1 / 2 0 TRAMADOL 1-2 tablets 2 TRAMADOL HCL 26254909203 No Joseph W Active HCL 50 MG every 6-8 0 Longer Farooq DO TABS hours as 1 Active needed for 2 pain / 0 1 / 2 0 ALPRAZOLAM one p.o. ALPRAZOLAM 70209271350 Active Joseph W Active 3 MG q.h.s. Farooq DO [id number] ALPRAZOLAM Take 1 2 ALPRAZOLAM 09233106672 No Joseph W Active XR tablet by 0 [id number] Longer Farooq DO [id number] mouth at 1 Active bedtime 1 / 2 9 DIFLUCAN 1 tablet by 2 FLUCONAZOLE 10300427924 No Joseph W Active 100 MG TAB mouth daily 0 Longer Farooq DO 1 Active 0 / 0 6 AMBIEN 10 1 tab by ZOLPIDEM TARTRATE 23967386181 Active Joseph W Active MG TAB mouth at Farooq DO bedtime as needed for sleep DIFLUCAN 100 1 tablet DIFLUCAN 19760111 FLUCONAZOLE Inactive MG TAB by mouth 100 MG TAB daily ALPRAZOLAM Take 1 ALPRAZOLAM ALPRAZOLAM Inactive XR [id number] tablet by XR [id number] mouth at [id number] bedtime TRAMADOL HCL 1-2 TRAMADOL 661704 TRAMADOL HCL Inactive 50 MG TABS tablets HCL 50 MG every 6-8 TABS hours as needed for pain SEROQUEL XR one p.o. SEROQUEL XR QUETIAPINE Inactive 50 MG q. evening 50 MG FUMARATE [id number]-IGP [id number]-GSR PERMETHRIN 5 apply neck PERMETHRIN 143895 PERMETHRIN Inactive % CREA to toes 5 % CREA tonight and then rinse off in morning. repeat at 7 days DIFLUCAN 100 1 tablet DIFLUCAN 550631 FLUCONAZOLE Inactive MG TAB by mouth 100 MG TAB daily POTASSIUM 1 capsule POTASSIUM POTASSIUM Inactive CHLORIDE CR by mouth CHLORIDE CR CHLORIDE 10 MEQ CPCR daily 10 MEQ CPCR FLUCONAZOLE one p.o. FLUCONAZOLE 19760111 FLUCONAZOLE Inactive 100 MG TABS q. day 2 100 MG TABS days TRAMADOL HCL 1 po tid TRAMADOL 046186 TRAMADOL HCL Inactive 50 MG TABS with ES HCL 50 MG Tylenol TABS NECON 1/35 1 po daily NECON /35 NORETHINDRONE- Inactive (28) 1-35 (28) 1-35 ETH ESTRADIOL MG-MCG TABS MG-MCG TABS CIPRO 500 MG 1 tablet CIPRO 500 308739 CIPROFLOXACIN Inactive TAB by mouth MG TAB HCL twice daily ADIPEX-P 1/2 tab po ADIPEX-P 882138 PHENTERMINE Inactive 37.5 MG CAPS q am for 37.5 MG HCL weight CAPS loss ABILIFY 2 MG 1 po q hs ABILIFY 2 497363 ARIPIPRAZOLE Inactive TABS for major MG TABS depression HYDROCHLOROT 2 tabs HYDROCHLORO 747406 HYDROCHLOROTHI Inactive HIAZIDE 25 every THIAZIDE 25 AZIDE MG TABS morning MG TABS ABILIFY 5 MG one p.o. ABILIFY 5 858600 ARIPIPRAZOLE Inactive TABS q. day MG TABS CIPROFLOXACI Take one CIPROFLOXAC 898160 CIPROFLOXACIN Inactive N HCL 500 MG (1) tablet IN HCL 500 HCL TABS by mouth MG TABS twice a day PROMETHAZINE 1 tab by PROMETHAZIN 207269 PROMETHAZINE Inactive HCL 25 MG mouth E HCL 25 MG HCL TABS every 6 TABS hours as needed PHENTERMINE 1 po q am PHENTERMINE 830635 PHENTERMINE Inactive HCL 37.5 MG for wt. HCL 37.5 MG HCL TABS loss TABS AMARYL 1 MG 1 tab AMARYL 1 MG 734349 GLIMEPIRIDE Inactive TABS twice TABS daily METFORMIN 1 tablet METFORMIN 405687 METFORMIN HCL Inactive HCL 500 MG by mouth HCL 500 MG TABS twice TABS daily SPIRONOLACTO 1 tablet SPIRONOLACT 516728 SPIRONOLACTONE Inactive NE 25 MG TAB by mouth ONE 25 MG daily TAB POTASSIUM 2 capsule POTASSIUM POTASSIUM Inactive CHLORIDE CR by mouth CHLORIDE CR CHLORIDE 10 MEQ CPCR daily 10 MEQ CPCR LISINOPRIL 1 tablet LISINOPRIL 106789 LISINOPRIL Inactive 20 MG TABS by mouth 20 MG TABS daily DIFLUCAN 100 1 tablet DIFLUCAN 607137 FLUCONAZOLE Inactive MG TABS by mouth 100 MG TABS every other day for 2 doses DIFLUCAN 100 1 tablet DIFLUCAN 364713 FLUCONAZOLE Inactive MG TAB by mouth 100 MG TAB daily x 3 days PREDNISONE 2 tablets PREDNISONE 176725 PREDNISONE Inactive 20 MG TAB today, 20 MG TAB then 1 tablet days 2-4 AMOXICILLIN 2 po BID x AMOXICILLIN 234095 AMOXICILLIN Inactive 500 MG CAPS 10 days 500 MG CAPS PREDNISONE 2 tabs PREDNISONE 286663 PREDNISONE Inactive 20 MG TAB daily for [...] Panel - Chemistry sodium, serum 137 mmol/L 074-195 6008/08/29 potassium, serum 4.1 mmol/L 3.5-5.2 chloride, serum 100 mmol/L 98-107 carbon dioxide, venous blood 31.1 mmol/L 21.0-32.0 blood glucose 138 mg/dL 65-110 calcium, serum 9.2 mg/dL 8.5-10.1 urea nitrogen, blood 9 mg/dL 7-18 creatinine, serum 0.80 mg/dL 0.60-1.30 Lab Report: CBC, Comp. Metabolic Panel, HGBA1C - Chemistry sodium, serum 140 mmol/L 600-892 8223/04/13 potassium, serum 3.9 mmol/L 3.5-5.2 chloride, serum [...] 4.3-6.0 Encounters Code Encounter Date Provider Facility CPT-46114 Level 3 Est. Patient Joseph Trivedi [facility] 22:18:20 CDT -[facility] CPT-52697 Level 3 Est. Patient Joseph Trivedi [facility] 16:46:04 CDT -[facility] CPT-35731 Level 3 Est. Patient Joseph Trivedi [facility] 15:39:53 CDT -[facility] CPT-02195 Level 3 Est. Patient Maite Sanchez MD [facility] 13:33:34 CDT -[facility] CPT-50569 Level 3 Est. Patient Joseph Trivedi [facility] 11:37:08 CDT -[facility] CPT-94626 Level 3 Est. Patient Joseph Trivedi [facility] 17:13:29 [facility] CPT-85652 Level 3 Est. Patient Joseph Trivedi [facility] 18:42:44 CDT CPT-92003 Level 3 Est. Patient Joseph Pineda [facility] 16:25:39 CDT CPT-94126 Level 3 Est. Patient [facility] 09:52:45 [facility] -[facility] CPT-12326 Level 3 Est. Patient Joseph Pineda [facility] 11:03:29 [facility] -[facility] CPT-70122 Level 3 Est. Patient Joseph Pineda [facility] 11:03:08 [facility] -[facility] CPT-97630 Level 3 Est. Patient Joseph Pineda [facility] 14:33:31 CDT -[facility] CPT-55923 Level 3 Est. Patient Joseph Pineda [facility] 17:05:02 [facility] -[facility] CPT-79147 Level 3 Est. Patient Joseph Pineda [facility] 17:48:06 [facility] -[facility] CPT-88016 Level 3 Est. Patient Joseph Pineda [facility] 14:59:22 [facility] -[facility] CPT-88561 Level 3 Est. Patient Joseph Pineda [facility] - 21:45:56 [facility] Jose [facility] CPT-61796 Level 3 Est. Patient Joseph Pineda [facility] 21:29:50 CDT -[facility] CPT-44281 Level 3 Est. Patient Joseph Pineda [facility] 12:41:09 CDT -[facility] Procedures Code Procedure Name Date Entry Date Standard Description CPT-93281 Venipuncture Draw Fee 08:55:49 [facility]
--- OUTSIDE RECORDS SUMMARY | 2016-11-20 14:11 | External Medical Summary | Clinical Summary ---
:1965 Author Organization [facility] Address [address] [address] Phone Allergies, Adverse Reactions, Alerts Allergy Name Reaction Description Start Date Severity Status Provider VERSED States jsut about Critical Active Gloria Saavedra STUDENT LIFE VICE PRESIDENT killed her NKDA Critical Active Indigo Yokum MALLET CUTTER NKDA Critical No Longer Indigo Yokum MALLET CUTTER Active NKDA Critical Inactive Adrianna Elder Conditions [...] Resolved Indigo Other malaise 05/24 07/02 Yokum MALLET CUTTER and fatigue SLEEP APNEA, 327.23 Active Joseph Pineda Obstructive OBSTRUCTIVE, 06/27 06/27 Farooq DO sleep apnea MILD (adult) (pediatric) OVERWEIGHT 278.02 Inactive Joseph Pineda Overweight 06/28 06/28 Farooq DO Obesity 278.00 Active Indigo Obesity, 06/28 10/18 Yokum MALLET CUTTER unspecified OTH GENERAL V70.3 Resolved Maite Gutierrez Other general MEDICAL Laura ONEAL medical EXAMINATION PhD examination for ADMIN administrative PURPOSES purposes OTHER 790.29 Resolved Maite C Other abnormal ABNORMAL 05/20 Laura ONAEL glucose GLUCOSE PhD ACUTE 466.0 Resolved Maite Gutierrez Acute bronchitis BRONCHITIS 09/02 Laura ONEAL PhD DEPENDENT 782.3 Resolved Indigo Edema EDEMA, LEGS, 10/29 10/18 Yokum MALLET CUTTER BILATERAL HYPOKALEMIA, 276.8 Resolved Indigo Hypopotassemia MILD 10/29 07/02 Yokum MALLET CUTTER Diabetes, 250.00 Inactive Joseph Pineda Diabetes Type 2 06/27 06/27 Farooq DO mellitus without mention of complication, type II or unspecified type, not stated as uncontrolled Diabetes 250.02 Resolved Indigo Diabetes mellitus, 06/27 10/18 Yokum MALLET CUTTER mellitus without type II, mention of uncontrolled [...] Resolved Indigo Routine gynecological 12/14 07/02 Yokum MALLET CUTTER gynecological examination examination Postmenopausa 627.1 Resolved Indigo Postmenopausal l bleeding 12/14 07/02 Yokum MALLET CUTTER bleeding Screening for V76.51 Resolved Indigo Screening for malignant 12/26 07/02 Yokum MALLET CUTTER malignant neoplasms of neoplasms of colon colon Insomnia, 307.42 Active Indigo 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 initiating or maintaining sleep Establish V68.89 Resolved Indigo Encounters for care or get 01/16 07/02 Yokum MALLET CUTTER other specified acquainted administrative visit purpose Weakness, 342.90 Resolved Indigo Hemiplegia, left side of 06/20 10/18 Yokum MALLET CUTTER unspecified, body affecting unspecified side TIA 435.9 Active Indigo Unspecified 06/20 07/02 Yokum MALLET CUTTER transient cerebral ischemia Knee pain, 719.46 Active Indigo Pain in joint bilateral 06/20 10/18 Yokum MALLET CUTTER involving lower leg Bronchitis 490 Resolved Indigo Bronchitis, not 07/23 10/18 Yokum MALLET CUTTER specified as acute or chronic Diabetes 357.2 Active Maliheh Polyneuropathy mellitus, 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 DISTILLERY WORKER GENERAL 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 y Knee pain, 719.46 Active Indigo Pain in joint right 06/20 10/18 Yokum MALLET CUTTER involving lower leg Jesi 112.3 Active Indigo Candidiasis of intertrigo 10/09 10/18 Yokum MALLET CUTTER skin and nails Hyperlipidemi 272.4 Active Anne Other and a 12/24 12/24 Neil unspecified RMA hyperlipidemia Incontinence, 788.33 Active Indigo Mixed mixed, 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 MALLET CUTTER incontinence urge/stress (female) (male) Female stress 625.6 Active Yury Monaco Stress incontinence 01/03 01/03 Cy patel MD female Vaginal odor 623.8 Active Gloria Other specified 05/28 05/28 Naff STUDENT LIFE VICE PRESIDENT noninflammatory disorders of vagina Urinary tract 599.0 Active Indigo Urinary tract infection 05/28 05/28 Yokum MALLET CUTTER infection, site not specified ABNORMAL VAGINAL ICD-626.9 Inactive Maite Sanchez BLEEDING PhD SCABIES ICD-133.0 Inactive Maite Sanchez PhD FATIGUE ICD-780.79 Inactive Indigo Yokum MALLET CUTTER OTH GENERAL ICD-V70.3 Inactive Maite Sanchez MEDICAL MD PhD EXAMINATION ADMIN PURPOSES OTHER ABNORMAL ICD-790.29 Inactive Maite Sanchez GLUCOSE PhD ACUTE BRONCHITIS ICD-466.0 Inactive Maite Sanchez PhD DEPENDENT EDEMA, ICD-782.3 Inactive Indigo Yokum LEGS, BILATERAL MALLET CUTTER HYPOKALEMIA, MILD ICD-276.8 Inactive Indigo Yokum MALLET CUTTER Diabetes mellitus, ICD-250.02 Inactive Indigo Yokum type II, MALLET CUTTER uncontrolled Sinusitis, ICD-461.1 Inactive Ismael Coyne frontal, acute Amandeep ONEAL Laryngitis, acute ICD-464.00 Inactive Ismael Coyne Amandeep ONEAL Routine ICD-V72.31 Inactive Indigo Yokum gynecological MALLET CUTTER examination Postmenopausal ICD-627.1 Inactive Indigo Yokum 2015 bleeding MALLET CUTTER Screening for ICD-V76.51 Inactive Indigo Yokum 2015 malignant MALLET CUTTER neoplasms of colon Establish care or ICD-V68.89 Inactive Indigo Yokum get acquainted MALLET CUTTER visit Weakness, left ICD-342.90 Inactive Indigo Yokum side of body MALLET CUTTER Bronchitis ICD-490 Inactive Indigo Yokum MALLET CUTTER Medication List Medication Instructions Start Stop Generic NDC Status Provider Patient Date Date Name Instruction VESGARETHRE 5 1 tablet SOLIFENACIN 75921896875 Active J Carlos Enrique Active MG TABS daily SUCCINATE Cy ONEAL CIPRO 250 MG 1 tablet 2 CIPROFLOXACIN 32957298936 No Indigo Active TAB by mouth 0 HCL Longer Yokum twice 1 Active MALLET CUTTER daily 7 / 0 1 7 METFORMIN 2 tablets 2 METFORMIN HCL 18124318679 No Indigo Active HCL 500 MG by mouth 0 Longer Yokum TB24 twice 1 Active MALLET CUTTER daily 2 AMARYL 1 MG 1 tablet 2 GLIMEPIRIDE 63976432960 No Indigo Active ORAL TABS orally 0 Longer Yokum twice 1 Active MALLET CUTTER daily 2 NYSTATIN apply to NYSTATIN 04377339033 Active Indigo Active 743812 rash TID Yokum UNIT/GM CREA PRN MALLET CUTTER TROKENDI XR 2 tab TOPIRAMATE 25469155989 Active Maliheh Active 100 MG ORAL daily Ziglari [id number] DISTILLERY WORKER GENERAL METOPROLOL 1 tab po METOPROLOL 86018372450 Active Indigo Active TARTRATE 25 bid TARTRATE Yokum MG TABS MALLET CUTTER AZITHROMYCIN 2 po qd x 2 AZITHROMYCIN 31269919496 No Jillina Active 250 MG TABS 1 day, 0 Longer Frazell then 1 po 1 Active MALLET CUTTER qd x 4 6 days / 0 3 / 2 6 PREDNISONE 2 pills 2 PREDNISONE 81885817983 No Jillina Active 20 MG TAB daily x 4 0 Longer [place] days 1 Active MALLET CUTTER 6 / 0 3 / 2 5 PIOGLITAZONE take one a PIOGLITAZONE 62720023517 Active Maliheh Active HCL 30 MG day HCL Ziglari ORAL TABS DISTILLERY WORKER GENERAL JANUVIA 100 1 tablet 2 SITAGLIPTIN 07545391633 No Indigo Active MG TABS by mouth 0 PHOSPHATE Longer Yokum daily 1 Active MALLET CUTTER 6 / 0 2 / 1 6 ATORVASTATIN 1 pill by ATORVASTATIN 18725357483 Active Indigo Active CALCIUM 10 mouth CALCIUM Yokum MG TABS nightly, MALLET CUTTER for cholestero l ASPIRIN 81 1 po qd ASPIRIN 15627363646 Active Indigo Active MG ORAL TABS Yokum MALLET CUTTER NITROFURANTO One 2 NITROFURANTOIN 55129386616 No Indigo Active IN MONOHYD capsule 0 MONOHYD MACRO Longer Yokum MACRO 100 MG BID for 1 Active MALLET CUTTER CAPS UTI 6 / 0 2 / 3 TRAMADOL HCL 1/2 po tid 2 TRAMADOL HCL 11670942437 No Jillina Active 50 MG TABS with ES 0 Longer [place] Tylenol 1 Active MALLET CUTTER prn pain 5 / 0 2 VYVANSE 20 1 tablet 2 LISDEXAMFETAMIN 75281421269 No Jillina Active MG ORAL CAPS daily for 0 E DIMESYLATE Longer [place] binge 1 Active MALLET CUTTER eating 5 disorder / 0 2 LASIX 20 MG 2 tablet FUROSEMIDE 69812130281 Active Indigo Active TAB by mouth Yokum daily MALLET CUTTER CELEBREX 200 1 tablet CELECOXIB 15660499330 Active Indigo Active MG CAPS by mouth Yokum daily with MALLET CUTTER meals PREDNISONE 2 tablets 2 PREDNISONE 62584368750 No Joseph W Active 20 MG TAB today, 0 Longer Farooq DO then 1 1 Active tablet 5 days 2-4 / 0 4 3 DIFLUCAN 100 1 tablet 2 FLUCONAZOLE 95326013554 No Joseph W Active MG TAB by mouth 0 Longer Farooq DO daily x 3 1 Active days 5 / 0 4 / 1 3 DIFLUCAN 100 1 tablet 2 FLUCONAZOLE 39790227495 No Joseph W Active MG TABS by mouth 0 Longer Farooq DO every 1 Active other day 5 for 2 / doses 0 1 / 2 3 ZOFRAN 4 MG 1 po q6hr ONDANSETRON HCL 66006466850 Active Joseph W Active TABS PRN Nausea Farooq DO PREDNISONE 2 tabs 2 PREDNISONE 93607341359 No Joseph W Active 20 MG TAB daily for 0 Longer Farooq DO 3 days, 1 1 Active tab daily 4 for 3 / days, 1/2 1 tab daily 0 for 2 days / 2 5 AMOXICILLIN 2 po BID x 2 AMOXICILLIN 76825352746 No Maite C Active 500 MG CAPS 10 days 0 Longer Madril MD 1 Active PhD 4 0 / 2 0 LISINOPRIL 1 tablet 2 LISINOPRIL 97759883994 No Maite Gutierrez Active 20 MG TABS by mouth 0 Longer Laura ONEAL daily 1 Active PhD 4 0 / 1 0 POTASSIUM 2 capsule 2 POTASSIUM 23863922662 No Joseph W Active CHLORIDE CR by mouth 0 CHLORIDE Longer Farooq DO 10 MEQ CPCR daily 1 Active 4 0 8 / 2 9 SPIRONOLACTO 1 tablet 2 SPIRONOLACTONE 48262666137 No Joseph W Active NE 25 MG TAB by mouth 0 Longer Farooq DO daily 1 Active 4 0 8 / 2 9 METFORMIN 1 tablet 2 METFORMIN HCL 14682921759 No Joseph W Active HCL 500 MG by mouth 0 Longer Farooq DO TABS twice 1 Active daily 4 8 / 2 9 AMARYL 1 MG 1 tab 2 GLIMEPIRIDE 87021663721 No Joseph W Active TABS twice 0 Longer Farooq DO daily 1 Active 4 / 0 8 2 9 PHENTERMINE 1 po q am 2 PHENTERMINE HCL 98335337843 No Joseph W Active HCL 37.5 MG for wt. 0 Longer Farooq DO TABS loss 1 Active 3 / 2 / 2 3 PROMETHAZINE 1 tab by 2 PROMETHAZINE 60655732215 No Joseph W Active HCL 25 MG mouth 0 HCL Longer Farooq DO TABS every 6 1 Active hours as 3 needed / 0 9 / 0 9 CIPROFLOXACI Take one 2 CIPROFLOXACIN 57027281558 No Joseph W Active N HCL 500 MG (1) tablet 0 HCL Longer Farooq DO TABS by mouth 1 Active twice a 3 day / 0 9 / 0 9 ABILIFY 5 MG one p.o. 2 ARIPIPRAZOLE 29620001388 No Joseph W Active TABS q. day 0 Longer Farooq DO 1 Active 3 / 0 9 / 0 9 HYDROCHLOROT 2 tabs 2 HYDROCHLOROTHIA 88926370334 No Joseph W Active HIAZIDE 25 every 0 ZIDE Longer Farooq DO MG TABS morning 1 Active 3 / 0 6 / 2 7 ABILIFY 2 MG 1 po q hs 2 ARIPIPRAZOLE 10398500004 No Joseph W Active TABS for major 0 Longer [facility] depression 1 Active 3 / 0 5 / 0 7 ADIPEX-P 1/2 tab po 2 PHENTERMINE HCL 78861188522 No Casey Active 37.5 MG CAPS q am for 0 Longer [facility] weight 1 Active loss 3 / 0 5 / 0 1 CIPRO 500 MG 1 tablet 2 CIPROFLOXACIN 44032867571 No Casey Active TAB by mouth 0 HCL Longer [facility] twice 1 Active daily 3 / 0 5 / 0 1 NECON 1 po daily 2 NORETHINDRONE-E 69121317759 No Casey Active () 1- 0 ESTRADIOL Longer [facility] MG-MCG TABS 1 Active 3 / 0 5 / 0 1 TRAMADOL HCL 1 po tid 2 TRAMADOL HCL 11254686013 No Casey Active 50 MG TABS with ES 0 Longer [facility] Tylenol 1 Active 3 / 0 5 / 0 1 FLUCONAZOLE one p.o. 2 FLUCONAZOLE 92729743977 No Casey Active 100 MG TABS q. day 2 0 Longer [facility] days 1 Active 3 / 0 5 / 0 1 POTASSIUM 1 capsule 2 POTASSIUM 09423355432 No Casey Active CHLORIDE CR by mouth 0 CHLORIDE Longer [facility] 10 MEQ CPCR daily 1 Active 3 / 0 5 / 0 1 IMIPRAMINE Take 6 IMIPRAMINE HCL 75313376430 Active Indigo Active HCL 50 MG tablets by Yokum TABS mouth at MALLET CUTTER bedtime DIFLUCAN 100 1 tablet 2 FLUCONAZOLE 76631292075 No Joseph W Active MG TAB by mouth 0 Longer [facility] daily 1 Active 2 / 0 2 / 2 4 VERAPAMIL 2 po bid VERAPAMIL HCL 56405394624 Active Indigo Active HCL CR 120 Yokum MG TAB CR MALLET CUTTER PERMETHRIN 5 apply neck 2 PERMETHRIN 21644281313 No Joseph W Active % CREA to toes 0 Longer [facility] tonight 1 Active and then 2 rinse off / in 0 morning. 1 repeat at / 7 days 2 0 SEROQUEL XR one p.o. 2 QUETIAPINE 33681993977 No Joseph W Active 50 MG q. evening 0 FUMARATE Longer Farooq DO [id number] 1 Active 2 / 0 1 / 2 0 TRAMADOL HCL 1-2 2 TRAMADOL HCL 70810877970 No Joseph W Active 50 MG TABS tablets 0 Longer Farooq DO every 6-8 1 Active hours as 2 needed for / pain 0 1 / 2 0 ALPRAZOLAM 3 one p.o. ALPRAZOLAM 89889889855 Active Indigo Active MG [id number] q.h.s. Yokum MALLET CUTTER ALPRAZOLAM Take 1 2 ALPRAZOLAM 19499846245 No Joseph W Active XR [id number] tablet by 0 [id number] Longer Farooq DO mouth at 1 Active bedtime 1 / 9 DIFLUCAN 100 1 tablet 2 FLUCONAZOLE 25045230915 No Joseph W Active MG TAB by mouth 0 Longer Farooq DO daily 1 Active 0 / 0 6 AMBIEN 10 MG 1 tab by ZOLPIDEM 26771188308 Active Indigo Active TAB mouth at TARTRATE Yokum bedtime as MALLET CUTTER needed for sleep DIFLUCAN 100 1 tablet DIFLUCAN 531579 FLUCONAZOLE Inactive MG TAB by mouth 100 MG TAB daily ALPRAZOLAM Take 1 ALPRAZOLAM ALPRAZOLAM Inactive XR [id number] tablet by XR [id number] mouth at [id number] bedtime TRAMADOL HCL 1-2 TRAMADOL 598439 TRAMADOL HCL Inactive 50 MG TABS tablets HCL 50 MG every 6-8 TABS hours as needed for pain SEROQUEL XR one p.o. SEROQUEL XR QUETIAPINE Inactive 50 MG q. 50 MG FUMARATE [id number] evening [id number] PERMETHRIN 5 apply PERMETHRIN 067725 PERMETHRIN Inactive % CREA neck to 5 % CREA toes tonight and then rinse off in morning. repeat at 7 days DIFLUCAN 100 1 tablet DIFLUCAN 358677 FLUCONAZOLE Inactive MG TAB by mouth 100 MG TAB daily POTASSIUM 1 capsule POTASSIUM POTASSIUM Inactive CHLORIDE CR by mouth CHLORIDE CR CHLORIDE 10 MEQ CPCR daily 10 MEQ CPCR FLUCONAZOLE one p.o. FLUCONAZOLE 489029 FLUCONAZOLE Inactive 100 MG TABS q. day 2 100 MG TABS days TRAMADOL HCL 1 po tid TRAMADOL 417737 TRAMADOL HCL Inactive 50 MG TABS with ES HCL 50 MG Tylenol TABS NECON 1 po NECON NORETHINDRONE- Inactive (28) 1-35 daily () - ETH ESTRADIOL MG-MCG TABS MG-MCG TABS CIPRO 500 MG 1 tablet CIPRO 500 982881 CIPROFLOXACIN Inactive TAB by mouth MG TAB HCL twice daily ADIPEX-P 1/2 tab ADIPEX-P 532035 PHENTERMINE Inactive 37.5 MG CAPS po q am 37.5 MG HCL for CAPS weight loss ABILIFY 2 MG 1 po q hs ABILIFY 2 470249 ARIPIPRAZOLE Inactive TABS for major MG TABS depressio n HYDROCHLOROT 2 tabs HYDROCHLORO 000258 HYDROCHLOROTHI Inactive HIAZIDE 25 every THIAZIDE 25 AZIDE MG TABS morning MG TABS ABILIFY 5 MG one p.o. ABILIFY 5 670112 ARIPIPRAZOLE Inactive TABS q. day MG TABS CIPROFLOXACI Take one CIPROFLOXAC 712120 CIPROFLOXACIN Inactive N HCL 500 MG (1) IN HCL 500 HCL TABS tablet by MG TABS mouth twice a day PROMETHAZINE 1 tab by PROMETHAZIN 990060 PROMETHAZINE Inactive HCL 25 MG mouth E HCL 25 MG HCL TABS every 6 TABS hours as needed PHENTERMINE 1 po q am PHENTERMINE 296407 PHENTERMINE Inactive HCL 37.5 MG for wt. HCL 37.5 MG HCL TABS loss TABS AMARYL 1 MG 1 tab AMARYL 1 MG 19910808 GLIMEPIRIDE Inactive TABS twice TABS daily METFORMIN 1 tablet METFORMIN 339291 METFORMIN HCL Inactive HCL 500 MG by mouth HCL 500 MG TABS twice TABS daily SPIRONOLACTO 1 tablet SPIRONOLACT 211599 SPIRONOLACTONE Inactive NE 25 MG TAB by mouth ONE 25 MG daily TAB POTASSIUM 2 capsule POTASSIUM POTASSIUM Inactive CHLORIDE CR by mouth CHLORIDE CR CHLORIDE 10 MEQ CPCR daily 10 MEQ CPCR LISINOPRIL 1 tablet LISINOPRIL 549946 LISINOPRIL Inactive 20 MG TABS by mouth 20 MG TABS daily DIFLUCAN 100 1 tablet DIFLUCAN 671883 FLUCONAZOLE Inactive MG TABS by mouth 100 MG TABS every other day for 2 doses DIFLUCAN 100 1 tablet DIFLUCAN 620474 FLUCONAZOLE Inactive MG TAB by mouth 100 MG TAB daily x 3 days PREDNISONE 2 tablets PREDNISONE 829656 PREDNISONE Inactive 20 MG TAB today, 20 MG TAB then 1 tablet days 2-4 VYVANSE 20 1 tablet VYVANSE 20 LISDEXAMFETAMI Inactive MG ORAL CAPS daily for MG ORAL NE DIMESYLATE binge CAPS eating disorder TRAMADOL HCL 1/2 po TRAMADOL 530591 TRAMADOL HCL Inactive 50 MG TABS tid [...] TB24 daily AMOXICILLIN 2 po BID AMOXICILLIN 662896 AMOXICILLIN Inactive 500 MG CAPS x 10 days 500 MG CAPS PREDNISONE 2 tabs PREDNISONE 579841 PREDNISONE Inactive 20 MG TAB daily for 20 MG TAB 3 days, 1 tab daily for 3 days, 1/2 tab daily for 2 days NITROFURANTO One NITROFURANT 4749266 NITROFURANTOIN Inactive IN MONOHYD capsule OIN MONOHYD MONOHYD MACRO MACRO 100 MG BID for MACRO 100 CAPS UTI MG CAPS PREDNISONE 2 pills PREDNISONE 337897 PREDNISONE Inactive 20 MG TAB daily x 4 20 MG TAB days AZITHROMYCIN 2 po qd x AZITHROMYCI 9533504 AZITHROMYCIN Inactive 250 MG TABS 1 day, N 250 MG then 1 po TABS qd x 4 days CIPRO 250 MG 1 tablet CIPRO 250 061513 CIPROFLOXACIN Inactive TAB by mouth MG TAB [...] HGBA1C - Chemistry sodium, serum 140 mmol/L 300-682 5904/06/03 potassium, serum 3.9 mmol/L 3.5-5.2 chloride, [...] 214 10^3/MM^3 10*3/mm3 142-424 Lab Report: Chlamydia/GC APTIMA/[id number] - Lab chlamydia DNA probe NOT DETECTED NOT DETECTED Lab Report: Chlamydia/GC APTIMA/[id number] - Microbiology Neisseria gonorrhoeae DNA probe NOT DETECTED NOT DETECTED Lab Report: Lipid Panel - Chemistry cholesterol, serum 157 mg/dL 654-027 3062/08/22 triglyceride, serum, fasting 215 mg/dL 30-200 HDL [...] mg/dL Encounters Code Encounter Date Provider Facility CPT-28406 Level 4 New Patient Yury Benoit MD [facility] 15:17:12 CDT CPT-11803 Level 3 Est. Patient [facility] - 13:37:46 CDT [place] CPT-33911 Level 4 Est. Patient [facility] - 10:01:06 CDT [place] CPT-64907 Level 3 Est. 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 [facility] 14:40:56 CDT [facility] CPT-90041 Level 4 Est. Patient [facility] 17:29:53 SPECIAL EVENT ASSISTANT [facility] CPT-02060 Level 4 Est. Patient [facility] 09:51:54 SPECIAL EVENT ASSISTANT CPT-77750 Level 3 Est. Patient [facility] 18:59:38 CDT CPT-12766 Level 3 Est. Patient Joseph Edwin [facility] 14:42:12 CDT -[facility] CPT-58850 Level 3 Est. Patient Joseph Pineda [facility] 22:18:20 CDT -[facility] CPT-75753 Level 3 Est. Patient Joseph Pineda [facility] 16:46:04 CDT -[facility] CPT-45418 Level 3 Est. Patient Joseph Edwin [facility] 15:39:53 CDT -[facility] CPT-80274 Level 3 Est. Patient Maite Sanchez MD [facility] 13:33:34 CDT -[facility] CPT-07584 Level 3 Est. Patient Joseph Edwin [facility] 11:37:08 CDT -[facility] CPT-22423 Level 3 Est. Patient [place] Edwin [facility] 17:13:29 SPECIAL EVENT ASSISTANT -[facility] CPT-51809 Level 3 Est. Patient Joseph Edwin [facility] 18:42:44 CDT CPT-46668 Level 3 Est. Patient [place] Edwin [facility] 16:25:39 CDT CPT-78964 Level 3 Est. Patient Casey Brower [facility] 09:52:45 CDT -[facility] CPT-95902 Level 3 Est. Patient Joseph Pineda [facility] 11:03:29 SPECIAL EVENT ASSISTANT -[facility] CPT-63304 Level 3 Est. Patient Joseph Edwin [facility] 11:03:08 SPECIAL EVENT ASSISTANT -[facility] CPT-86226 Level 3 Est. Patient Joseph Edwin [facility] 14:33:31 CDT -[facility] CPT-54696 Level 3 Est. Patient Joseph Edwin [facility] 17:05:02 SPECIAL EVENT ASSISTANT -[facility]HC CPT-55169 Level 3 Est. Patient [facility] 17:48:06 SPECIAL EVENT ASSISTANT -RHC CPT-95194 Level 3 Est. Patient Joseph Trivedi [facility] 14:59:22 SPECIAL EVENT ASSISTANT -C CPT-13925 Level 3 Est. Patient Joseph Trivedi [facility] - 21:45:56 SPECIAL EVENT ASSISTANT [place] [facility] CPT-36862 Level 3 Est. Patient Joseph Trivedi [facility] 21:29:50 CDT -[facility] CPT-90099 Level 3 Est. Patient Joseph Trivedi [facility] 12:41:09 CDT -[facility] Procedures Code Procedure Name Date Entry Date Standard Description CPT-18293 [place] - LAB USE ONLY 12:39:03 SPECIAL EVENT ASSISTANT CPT-03403 Vaginal Culture - LAB USE ONLY 12:39:03 SPECIAL EVENT ASSISTANT CPT-83902 Urine Culture - LAB USE ONLY 11:52:44 SPECIAL EVENT ASSISTANT CPT-82963 UA w micro - LAB USE ONLY 11:52:44 SPECIAL EVENT ASSISTANT CPT-56465 Postop F/U Visit 12:08:35 CDT CPT-13264 Postop F/U Visit 18:20:10 CDT CPT-A4351 [facility] Female Cath 09:37:10 CDT CPT-52645 Urine Dip (Floor Use Only) 15:17:13 CDT CPT-96363 Dil F ureth int 15:17:13 CDT CPT-16033 Venipuncture Draw Fee 09:19:08 CDT CPT-24477 Lipid - LAB USE ONLY 09:19:07 CDT CPT-JTINJ Asp/Joint Injection 09:26:49 CDT CPT-71442 Chest 2V Frontal and Lat 14:47:43 CDT CPT-JTINJ Asp/Joint Injection 09:51:53 SPECIAL EVENT ASSISTANT CPT-OV Office Visit 17:39:05 CDT CPT-OV Office Visit 15:19:50 CDT CPT-71794 Sono transvag pelvis non OB uterus ovaries cervix 18:04:34 CDT CPT-04307 Venipuncture Draw Fee 08:55:49 SPECIAL EVENT ASSISTANT
--- OUTSIDE RECORDS SUMMARY | 2016-11-20 14:11 | External Medical Summary | Clinical Summary ---
:1965 Author Organization [facility] [employer] Address [address] [address] Phone Allergies, Adverse Reactions, Alerts Allergy Name Reaction Description Start Date Severity Status Provider NKDA Critical Active Indigo Jordanum PROMOTIONAL ADVERTISING ASSISTANT NKDA Critical No Longer Indigo Yokum PROMOTIONAL ADVERTISING ASSISTANT Active NKDA Critical Inactive Adrianna [...] Resolved Indigo Other malaise 05/24 07/02 Yokum PROMOTIONAL ADVERTISING ASSISTANT and fatigue SLEEP APNEA, 327.23 Active Joseph Pineda Obstructive OBSTRUCTIVE, 06/27 06/27 Farooq DO sleep apnea MILD (adult) (pediatric) OVERWEIGHT 278.02 Inactive Joseph Pineda Overweight 06/28 06/28 Farooq DO Obesity 278.00 Active Indigo Obesity, 06/28 10/18 Yokum PROMOTIONAL ADVERTISING ASSISTANT unspecified OTH GENERAL V70.3 Resolved Maite Gutierrez Other general MEDICAL Laura ONEAL medical EXAMINATION PhD examination for ADMIN PURPOSES administrative purposes OTHER ABNORMAL 790.29 Resolved Maite C Other abnormal GLUCOSE 05/20 Laura ONEAL glucose PhD ACUTE 466.0 Resolved Maite C Acute BRONCHITIS 09/02 Laura ONEAL bronchitis PhD DEPENDENT 782.3 Resolved Indigo Edema EDEMA, LEGS, 10/29 10/18 Yokum PROMOTIONAL ADVERTISING ASSISTANT BILATERAL HYPOKALEMIA, 276.8 Resolved Indigo Hypopotassemia MILD 10/29 07/02 Youm PROMOTIONAL ADVERTISING ASSISTANT Diabetes, Type 250.00 Inactive Joseph Pineda Diabetes 2 06/27 06/27 Farooq DO mellitus without mention of complication, type II or unspecified type, not stated as uncontrolled Diabetes 250.02 Resolved Indigo Diabetes mellitus, type 06/27 PROMOTIONAL ADVERTISING ASSISTANT mellitus II, without mention uncontrolled of [...] Resolved Indigo Routine gynecological 12/14 07/02 Yo PROMOTIONAL ADVERTISING ASSISTANT gynecological examination examination Postmenopausal 627.1 Resolved Indigo Postmenopausal bleeding 12/14 PROMOTIONAL ADVERTISING ASSISTANT bleeding Screening for V76.51 Resolved Indigo Screening for malignant 12/26 07/02 Yokum PROMOTIONAL ADVERTISING ASSISTANT malignant neoplasms of neoplasms of colon colon Insomnia, 307.42 Active Indigo 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 PROMOTIONAL ADVERTISING ASSISTANT disorder of initiating or maintaining sleep Establish care V68.89 Resolved Indigo Encounters for or get 01/16 07/02 Yo PROMOTIONAL ADVERTISING ASSISTANT other specified acquainted administrative visit purpose Weakness, left 342.90 Resolved Indigo Hemiplegia, side of body 06/20 10/18 Yokum PROMOTIONAL ADVERTISING ASSISTANT unspecified, affecting unspecified side TIA 435.9 Active Indigo Unspecified 06/20 07/02 Yokum PROMOTIONAL ADVERTISING ASSISTANT transient cerebral ischemia Knee pain, 719.46 Active Indigo Pain in joint bilateral 06/20 10/18 Yokum PROMOTIONAL ADVERTISING ASSISTANT involving lower leg Bronchitis 490 Resolved Indigo Bronchitis, not 07/23 10/18 Yokum PROMOTIONAL ADVERTISING ASSISTANT specified as acute or chronic Diabetes 357.2 Active Maliheh Polyneuropathy mellitus, 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y Knee pain, 719.46 Active Indigo Pain in joint right 06/20 10/18 Yokum PROMOTIONAL ADVERTISING ASSISTANT involving lower leg Jesi 112.3 Active Indigo Candidiasis of intertrigo 10/09 10/18 Yokum PROMOTIONAL ADVERTISING ASSISTANT skin and nails Hyperlipidemia 272.4 Active Anne Other and 12/24 12/24 Neil unspecified RMA hyperlipidemia Incontinence, 788.33 Active Indigo Mixed mixed, 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 PROMOTIONAL ADVERTISING ASSISTANT incontinence urge/stress (female) (male) Female stress 625.6 Active Yury AnthonyCarlos Enrique Stress incontinence 01/03 01/03 yC patel MD female ABNORMAL VAGINAL ICD-626.9 Inactive Maite Sanchez BLEEDING PhD SCABIES ICD-133.0 Inactive Maite Sanchez PhD FATIGUE ICD-780.79 Inactive Indigo Yokum PROMOTIONAL ADVERTISING ASSISTANT OTH GENERAL ICD-V70.3 Inactive Maite Sanchez MEDICAL PhD EXAMINATION ADMIN PURPOSES OTHER ABNORMAL ICD-790.29 Inactive Maite Sanchez GLUCOSE PhD ACUTE BRONCHITIS ICD-466.0 Inactive Maite Matt Sanchez PhD DEPENDENT EDEMA, ICD-782.3 Inactive Indigo Yokum LEGS, BILATERAL PROMOTIONAL ADVERTISING ASSISTANT HYPOKALEMIA, MILD ICD-276.8 Inactive Indigo Yokum PROMOTIONAL ADVERTISING ASSISTANT Diabetes mellitus, ICD-250.02 Inactive Indigo Yokum type II, PROMOTIONAL ADVERTISING ASSISTANT uncontrolled Sinusitis, ICD-461.1 Inactive Ismael Coyne frontal, acute Amandeep ONEAL Laryngitis, acute ICD-464.00 Inactive Ismael Coyne Amandeep ONEAL Routine ICD-V72.31 Inactive Indigo Yokum gynecological PROMOTIONAL ADVERTISING ASSISTANT examination Postmenopausal ICD-627.1 Inactive Indigo Yokum 2015 bleeding PROMOTIONAL ADVERTISING ASSISTANT Screening for ICD-V76.51 Inactive Indigo Yokum 2015 malignant PROMOTIONAL ADVERTISING ASSISTANT neoplasms of colon Establish care or ICD-V68.89 Inactive Indigo Yokum get acquainted PROMOTIONAL ADVERTISING ASSISTANT visit Weakness, left ICD-342.90 Inactive Indigo Yokum side of body PROMOTIONAL ADVERTISING ASSISTANT Bronchitis ICD-490 Inactive Indigo Yokum PROMOTIONAL ADVERTISING ASSISTANT Medication List Medication Instructions Start Stop Generic NDC Status Provider Patient Date Date Name Instruction METFORMIN 2 tablets METFORMIN 43174277471 No Indigo Active HCL 500 MG by mouth HCL Longer Yokum TB24 twice Active PROMOTIONAL ADVERTISING ASSISTANT daily AMARYL 1 MG 1 tablet GLIMEPIRID 23249894811 No Indigo Active ORAL TABS orally E Longer Yokum twice Active PROMOTIONAL ADVERTISING ASSISTANT daily NYSTATIN apply to NYSTATIN 49243474151 Active Indigo Active 477839 rash TID Yokum UNIT/GM PRN PROMOTIONAL ADVERTISING ASSISTANT CREA TROKENDI XR 2 tab TOPIRAMATE 22324329667 Active Malihe Active 100 MG ORAL daily h [id number] Ziglar i 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 METOPROLOL 1 tab po METOPROLOL 98562538104 Active Indigo Active TARTRATE 25 bid TARTRATE Yokum MG TABS PROMOTIONAL ADVERTISING ASSISTANT AZITHROMYCI 2 po qd x AZITHROMYC 38011277723 No Jillin Active N 250 MG 1 day, IN Longer a TABS then 1 po Active Frazel qd x 4 l PROMOTIONAL ADVERTISING ASSISTANT days PREDNISONE 2 pills PREDNISONE 36186012607 No Jillin Active 20 MG TAB daily x 4 Longer a days Active Frazel l PROMOTIONAL ADVERTISING ASSISTANT PIOGLITAZON take one PIOGLITAZO 99955846376 Active Malihe Active E HCL 30 MG a day NE HCL h ORAL TABS Ziglar i 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 JANUVIA 100 1 tablet SITAGLIPTI 71331788866 No Indigo Active MG TABS by mouth N Longer Yokum daily PHOSPHATE Active PROMOTIONAL ADVERTISING ASSISTANT ATORVASTATI 1 pill by ATORVASTAT 07643713951 Active Indigo Active N CALCIUM mouth IN CALCIUM Yokum 10 MG TABS nightly, PROMOTIONAL ADVERTISING ASSISTANT for cholester ol ASPIRIN 81 1 po qd ASPIRIN 57078194944 Active Indigo Active MG ORAL Yokum TABS PROMOTIONAL ADVERTISING ASSISTANT NITROFURANT One NITROFURAN 80395716597 No Indigo Active OIN MONOHYD capsule TOIN Longer Yokum MACRO 100 BID for MONOHYD Active PROMOTIONAL ADVERTISING ASSISTANT MG CAPS UTI MACRO TRAMADOL 1/2 po TRAMADOL 14103407450 No Jillin Active HCL 50 MG tid with HCL Longer a TABS ES Active Frazel Tylenol l PROMOTIONAL ADVERTISING ASSISTANT prn pain VYVANSE 20 1 tablet LISDEXAMFE 06615933599 No Jillin Active MG ORAL daily for TAMINE Longer a CAPS binge DIMESYLATE Active Frazel eating l PROMOTIONAL ADVERTISING ASSISTANT disorder LASIX 20 MG 2 tablet FUROSEMIDE 27316229999 Active Indigo Active TAB by mouth Yokum daily PROMOTIONAL ADVERTISING ASSISTANT CELEBREX 1 tablet CELECOXIB 31599828863 Active Indigo Active 200 MG CAPS by mouth Yokum daily PROMOTIONAL ADVERTISING ASSISTANT with meals PREDNISONE 2 tablets PREDNISONE 19703431985 No Joseph Active 20 MG TAB today, Longer W Farooq then 1 Active DO tablet days 2-4 DIFLUCAN 1 tablet FLUCONAZOL 49713418441 No Joseph Active 100 MG TAB by mouth E Longer W Farooq daily x 3 Active DO days DIFLUCAN 1 tablet FLUCONAZOL 77831023940 No Joseph Active 100 MG TABS by mouth E Longer W Farooq every Active DO other day for 2 doses ZOFRAN 4 MG 1 po q6hr ONDANSETRO 44353016510 Active Joseph Active TABS PRN N HCL W Farooq Nausea DO PREDNISONE 2 tabs PREDNISONE 68584448198 No Joseph Active 20 MG TAB daily for Longer W Farooq 3 days, 1 Active DO tab daily for 3 days, 1/2 tab daily for 2 days AMOXICILLIN 2 po BID AMOXICILLI 47811490308 No Maite C Active 500 MG CAPS x 10 days N Longer Madril Active PhD LISINOPRIL 1 tablet LISINOPRIL 15567228374 No Maite C Active 20 MG TABS by mouth Longer Madril daily Active PhD POTASSIUM 2 capsule POTASSIUM 16332656940 No Joseph Active CHLORIDE CR by mouth CHLORIDE Longer W Farooq 10 MEQ CPCR daily Active DO SPIRONOLACT 1 tablet SPIRONOLAC 85871868720 No Joseph Active ONE 25 MG by mouth TONE Longer W Farooq TAB daily Active DO METFORMIN 1 tablet METFORMIN 24450313945 No Joseph Active HCL 500 MG by mouth HCL Longer W Farooq TABS twice Active DO daily AMARYL 1 MG 1 tab GLIMEPIRID 42901014361 No Joseph Active TABS twice E Longer W Farooq daily Active DO PHENTERMINE 1 po q am PHENTERMIN 64107079422 No Joseph Active HCL 37.5 MG for wt. E HCL Longer W Farooq TABS loss Active DO PROMETHAZIN 1 tab by PROMETHAZI 44698604229 No Joseph Active E HCL 25 MG mouth NE HCL Longer W Farooq TABS every 6 Active DO hours as needed CIPROFLOXAC Take one CIPROFLOXA 24026539622 No Joseph Active IN HCL 500 (1) DELORES HCL Longer W Farooq MG TABS tablet by Active DO mouth twice a day ABILIFY 5 one p.o. ARIPIPRAZO 22978822112 No Joseph Active MG TABS q. day LE Longer W Farooq Active DO HYDROCHLORO 2 tabs HYDROCHLOR 82628489257 No Joseph Active THIAZIDE 25 every OTHIAZIDE Longer W Farooq MG TABS morning Active DO ABILIFY 2 1 po q hs ARIPIPRAZO 79568033778 No Joseph Active MG TABS for major LE Longer W Farooq depressio Active DO n ADIPEX-P 1/2 tab PHENTERMIN 37624826156 No Casey Active 37.5 MG po q am E HCL Longer [place] CAPS for Active PA weight loss CIPRO 500 1 tablet CIPROFLOXA 63003316309 No Casey Active MG TAB by mouth DELORES HCL Longer Leonarda twice Active PA daily NECON 1/35 1 po NORETHINDR 68914960600 No Casey Active (28) 1-35 daily ONE-ETH Longer Leonarda MG-MCG TABS ESTRADIOL Active PA TRAMADOL 1 po tid TRAMADOL 30691660339 No Casey Active HCL 50 MG with ES HCL Longer Leonarda TABS Tylenol Active PA FLUCONAZOLE one p.o. FLUCONAZOL 18411910441 No Casey Active 100 MG TABS q. day 2 E Longer Leonarda days Active PA POTASSIUM 1 capsule POTASSIUM 42242917737 No Casey Active CHLORIDE CR by mouth CHLORIDE Longer 10 MEQ CPCR daily Active PA IMIPRAMINE Take 6 IMIPRAMINE 05629254850 Active Indigo Active HCL 50 MG tablets HCL Yokum TABS by mouth PROMOTIONAL ADVERTISING ASSISTANT at bedtime DIFLUCAN 1 tablet FLUCONAZOL 83678903856 No Joseph Active 100 MG TAB by mouth E Longer W Farooq daily Active DO VERAPAMIL 2 po bid VERAPAMIL 48234342939 Active Indigo Active HCL CR 120 HCL Yokum MG TAB CR PROMOTIONAL ADVERTISING ASSISTANT PERMETHRIN apply PERMETHRIN 53131412494 No Joseph Active 5 % CREA neck to Longer W Farooq toes Active DO tonight and then rinse off in morning. repeat at 7 days SEROQUEL XR one p.o. QUETIAPINE 27398724009 No Joseph Active 50 MG q. FUMARATE Longer W Farooq [id number] evening Active DO TRAMADOL 1-2 TRAMADOL 15578473711 No Joseph Active HCL 50 MG tablets HCL Longer W Farooq TABS every 6-8 Active DO hours as needed for pain ALPRAZOLAM one p.o. ALPRAZOLAM 65218202317 Active Indigo Active 3 MG q.h.s. Yokum [id number] PROMOTIONAL ADVERTISING ASSISTANT ALPRAZOLAM Take 1 ALPRAZOLAM 47279548856 No Joseph Active XR tablet by [id number] Longer W Farooq [id number] mouth at Active DO bedtime DIFLUCAN 1 tablet FLUCONAZOL 14363727795 No Joseph Active 100 MG TAB by mouth E Longer W Farooq daily Active DO AMBIEN 10 1 tab by ZOLPIDEM 54047480884 Active Indigo Active MG TAB mouth at TARTRATE Yokum bedtime PROMOTIONAL ADVERTISING ASSISTANT as needed for sleep DIFLUCAN 100 1 tablet DIFLUCAN 097576 FLUCONAZOLE Inactive MG TAB by mouth 100 MG TAB daily ALPRAZOLAM Take 1 ALPRAZOLAM ALPRAZOLAM Inactive XR [id number] tablet by XR [id number] mouth at [id number] bedtime TRAMADOL HCL 1-2 TRAMADOL 823298 TRAMADOL HCL Inactive 50 MG TABS tablets HCL 50 MG every 6-8 TABS hours as needed for pain SEROQUEL XR one p.o. SEROQUEL XR QUETIAPINE Inactive 50 MG q. 50 MG FUMARATE [id number] evening [id number] PERMETHRIN 5 apply PERMETHRIN 935246 PERMETHRIN Inactive % CREA neck to 5 % CREA toes tonight and then rinse off in morning. repeat at 7 days DIFLUCAN 100 1 tablet DIFLUCAN 454934 FLUCONAZOLE Inactive MG TAB by mouth 100 MG TAB daily POTASSIUM 1 capsule POTASSIUM POTASSIUM Inactive CHLORIDE CR by mouth CHLORIDE CR CHLORIDE 10 MEQ CPCR daily 10 MEQ CPCR FLUCONAZOLE one p.o. FLUCONAZOLE 738944 FLUCONAZOLE Inactive 100 MG TABS q. day 2 100 MG TABS days TRAMADOL HCL 1 po tid TRAMADOL 689406 TRAMADOL HCL Inactive 50 MG TABS with ES HCL 50 MG Tylenol TABS NECON 1/35 1 po NECON 1/35 NORETHINDRONE- Inactive (28) 1-35 daily (28) 1-35 ETH ESTRADIOL MG-MCG TABS MG-MCG TABS CIPRO 500 MG 1 tablet CIPRO 500 557760 CIPROFLOXACIN Inactive TAB by mouth MG TAB HCL twice daily ADIPEX-P 1/2 tab ADIPEX-P 645031 PHENTERMINE Inactive 37.5 MG CAPS po q am 37.5 MG HCL for CAPS weight loss ABILIFY 2 MG 1 po q hs ABILIFY 2 418843 ARIPIPRAZOLE Inactive TABS for major MG TABS depressio n HYDROCHLOROT 2 tabs HYDROCHLORO 059001 HYDROCHLOROTHI Inactive HIAZIDE 25 every THIAZIDE 25 AZIDE MG TABS morning MG TABS ABILIFY 5 MG one p.o. ABILIFY 5 663423 ARIPIPRAZOLE Inactive TABS q. day MG TABS CIPROFLOXACI Take one CIPROFLOXAC 175585 CIPROFLOXACIN Inactive N HCL 500 MG (1) IN HCL 500 HCL TABS tablet by MG TABS mouth twice a day PROMETHAZINE 1 tab by PROMETHAZIN 259935 PROMETHAZINE Inactive HCL 25 MG mouth E HCL 25 MG HCL TABS every 6 TABS hours as needed PHENTERMINE 1 po q am PHENTERMINE 681267 PHENTERMINE Inactive HCL 37.5 MG for wt. HCL 37.5 MG HCL TABS loss TABS AMARYL 1 MG 1 tab AMARYL 1 MG 185881 GLIMEPIRIDE Inactive TABS twice TABS daily METFORMIN 1 tablet METFORMIN 385602 METFORMIN HCL Inactive HCL 500 MG by mouth HCL 500 MG TABS twice TABS daily SPIRONOLACTO 1 tablet SPIRONOLACT 708046 SPIRONOLACTONE Inactive NE 25 MG TAB by mouth ONE 25 MG daily TAB POTASSIUM 2 capsule POTASSIUM POTASSIUM Inactive CHLORIDE CR by mouth CHLORIDE CR CHLORIDE 10 MEQ CPCR daily 10 MEQ CPCR LISINOPRIL 1 tablet LISINOPRIL 147654 LISINOPRIL Inactive 20 MG TABS by mouth 20 MG TABS daily DIFLUCAN 100 1 tablet DIFLUCAN 19760111 FLUCONAZOLE Inactive MG TABS by mouth 100 MG TABS every other day for 2 doses DIFLUCAN 100 1 tablet DIFLUCAN 008970 FLUCONAZOLE Inactive MG TAB by mouth 100 MG TAB daily x 3 days PREDNISONE 2 tablets PREDNISONE 117733 PREDNISONE Inactive 20 MG TAB today, 20 MG TAB then 1 tablet days 2-4 VYVANSE 20 1 tablet VYVANSE 20 LISDEXAMFETAMI Inactive MG ORAL CAPS daily for MG ORAL NE DIMESYLATE binge CAPS eating disorder TRAMADOL HCL 1/2 po TRAMADOL 930679 TRAMADOL HCL Inactive 50 MG TABS tid with HCL 50 MG ES TABS Tylenol prn pain JANUVIA 100 1 tablet JANUVIA 100 SITAGLIPTIN Inactive MG TABS by mouth MG TABS PHOSPHATE daily AMARYL 1 MG 1 tablet AMARYL 1 MG 011544 GLIMEPIRIDE Inactive ORAL TABS orally ORAL TABS twice daily METFORMIN 2 tablets METFORMIN METFORMIN HCL Inactive HCL 500 MG by mouth HCL 500 MG TB24 twice TB24 daily AMOXICILLIN 2 po BID AMOXICILLIN 729837 AMOXICILLIN Inactive 500 MG CAPS x 10 days 500 MG CAPS PREDNISONE 2 tabs PREDNISONE 695504 PREDNISONE Inactive 20 MG TAB daily for 20 MG TAB 3 days, 1 tab daily for 3 days, 1/2 tab daily for 2 days NITROFURANTO One NITROFURANT 6051188 NITROFURANTOIN Inactive IN MONOHYD capsule OIN MONOHYD MONOHYD MACRO MACRO 100 MG BID for MACRO 100 CAPS UTI MG CAPS PREDNISONE 2 pills PREDNISONE 309634 PREDNISONE Inactive 20 MG TAB daily x 4 20 MG TAB days AZITHROMYCIN 2 po qd x AZITHROMYCI 2545111 AZITHROMYCIN Inactive 250 MG TABS 1 day, [...] HGBA1C - Chemistry sodium, serum 140 mmol/L 614-951 2938/06/03 potassium, serum 3.9 mmol/L 3.5-5.2 chloride, serum [...] Panel - Chemistry sodium, serum 136 mmol/L 944-609 4747/01/04 carbon dioxide, venous blood 27.0 mmol/L 21.0-32.0 potassium, serum 4.6 mmol/L 3.5-5.2 chloride, serum 98 mmol/L 98-107 blood glucose 174 mg/dL 65-110 urea nitrogen, blood 12 mg/dL 7-18 creatinine, serum 0.78 mg/dL 0.55-1.30 alanine aminotransferase (SGPT), serum 65 U/L 12-78 aspartate aminotransferase (SGOT), serum 34 U/L 15-37 calcium, serum 8.9 mg/dL 8.5-10.1 bilirubin, serum, total 0.40 mg/dL 0.00-1.00 cholesterol, serum 219 mg/dL 624-418 0931/01/04 triglyceride, serum, fasting 214 mg/dL 30-200 HDL cholesterol, serum 39 mg/dL 32-96 LDL cholesterol, serum 137 mg/dL 0-130 Lab Report: Lipid Panel - Chemistry cholesterol, serum 157 mg/dL 893-945 4377/08/22 triglyceride, serum, fasting 215 mg/dL 30-200 HDL [...] mg/dL Encounters Code Encounter Date Provider Facility CPT-21174 Level 4 New Patient Yury Benoit MD [facility] 15:17:12 CDT CPT-65241 Level 3 Est. Patient Replaced by [facility] - 13:37:46 CDT [place] CPT-45730 Level 4 Est. Patient Replaced by [facility] - 10:01:06 CDT [place] CPT-56783 Level [address] [facility] 08:58:07 CDT 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 CPT-42697 Level 3 Est. Patient Faby Marino [facility] 14:40:56 CDT [place] CPT-51370 Level [address] [facility] 17:29:53 [employer] 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 CPT-66117 Level 4 Est. Patient Replaced by [facility] 09:51:54 [employer] CPT-53384 Level 3 Est. Patient Indigo Sexton ALEJANDRO [facility] 18:59:38 CDT CPT-37140 Level 3 Est. Patient Joseph Edwin [facility] 14:42:12 CDT -[facility] CPT-33119 Level 3 Est. Patient Joseph Pineda [facility] 22:18:20 CDT -RHC CPT-11674 Level 3 Est. Patient Joseph Edwin [facility] 16:46:04 CDT -RHC CPT-79053 Level 3 Est. Patient Joseph Edwin [facility] 15:39:53 CDT -RHC CPT-98588 Level 3 Est. Patient Maite Sanchez MD [facility] 13:33:34 CDT -RHC CPT-57139 Level 3 Est. Patient Carnegie [facility] 11:37:08 CDT -RHC CPT-63486 Level 3 Est. Patient Joseph Edwin [facility] 17:13:29 [place] [place] -[facility] CPT-47323 Level 3 Est. Patient [facility] 18:42:44 CDT CPT-46206 Level 3 Est. Patient [facility] 16:25:39 CDT CPT-99354 Level 3 Est. Patient Casey Brower [facility] 09:52:45 CDT -RHC CPT-20068 Level 3 Est. Patient Joseph Edwin [facility] 11:03:29 [place] [place] -[facility] CPT-11251 Level 3 Est. Patient [facility] 11:03:08 [place] [place] -[facility] CPT-80215 Level 3 Est. Patient [facility] 14:33:31 CDT -RHC CPT-42162 Level 3 Est. Patient Joseph Edwin [facility] 17:05:02 [place] -[facility] CPT-24063 Level 3 Est. Patient [facility] 17:48:06 [place] [place] -[facility] CPT-36915 Level 3 Est. Patient Joseph Pineda [facility] 14:59:22 [place] [place] -[facility] CPT-19290 Level 3 Est. Patient Joseph Pineda [facility] - 21:45:56 [employer] [place] [facility] CPT-47135 Level 3 Est. Patient Joseph Pineda [facility] 21:29:50 CDT -RHC CPT-18187 Level 3 Est. Patient Joseph Pineda [facility] 12:41:09 CDT -RHC Procedures Code Procedure Name Date Entry Date Standard Description CPT-03474 Postop F/U Visit 12:08:35 CDT CPT-16214 Postop F/U Visit 18:20:10 CDT CPT-A4351 [facility]oplast Female Cath 09:37:10 CDT CPT-36279 Urine Dip (Floor Use Only) 15:17:13 CDT CPT-47799 Dil F ureth int 15:17:13 CDT CPT-91863 Venipuncture Draw Fee 09:19:08 CDT CPT-02698 Lipid - LAB USE ONLY 09:19:07 CDT CPT-JTINJ Asp/Joint Injection 09:26:49 CDT CPT-30514 Chest 2V Frontal and Lat 14:47:43 CDT CPT-JTINJ Asp/Joint Injection 09:51:53 [employer] CPT-OV Office Visit 17:39:05 CDT CPT-OV Office Visit 15:19:50 CDT CPT-81903 Sono transvag pelvis non OB uterus ovaries cervix 18:04:34 CDT CPT-32111 Venipuncture Draw Fee 08:55:49 [employer]
--- OUTSIDE RECORDS SUMMARY | 2016-11-20 14:12 | External Medical Summary | Clinical Summary ---
:1965 Author Organization [facility] Address [address] [address] Phone Allergies, Adverse Reactions, Alerts Allergy Name Reaction Description Start Date Severity Status Provider NKDA Critical Active Indigo Yonickieum PROFESSIONAL HOUSING CONSULTANT NKDA Critical No Longer Indigo Yokum PROFESSIONAL HOUSING CONSULTANT Active NKDA Critical Inactive Adrianna Elder [...] Resolved Indigo Other malaise 05/24 07/02 Yokum PROFESSIONAL HOUSING CONSULTANT and fatigue SLEEP APNEA, 327.23 Active Joseph Pineda Obstructive OBSTRUCTIVE, 06/27 06/27 Farooq DO sleep apnea MILD (adult) (pediatric) OVERWEIGHT 278.02 Inactive Joseph Pineda Overweight 06/28 06/28 Farooq DO Obesity 278.00 Active Indigo Obesity, 06/28 10/18 Y[place]um PROFESSIONAL HOUSING CONSULTANT unspecified OTH GENERAL V70.3 Resolved Maite Gutierrez Other general MEDICAL Laura ONEAL medical EXAMINATION PhD examination for ADMIN PURPOSES administrative purposes OTHER ABNORMAL 790.29 Resolved Maite C Other abnormal GLUCOSE 05/20 Laura ONEAL glucose PhD ACUTE 466.0 Resolved Maite C Acute BRONCHITIS 09/02 Laura ONEAL bronchitis PhD DEPENDENT 782.3 Resolved Indigo Edema EDEMA, LEGS, 10/29 10/18 Yokum PROFESSIONAL HOUSING CONSULTANT BILATERAL HYPOKALEMIA, 276.8 Resolved Indigo Hypopotassemia MILD 10/29 07/02 Youm PROFESSIONAL HOUSING CONSULTANT Diabetes, Type 250.00 Inactive Joseph Pineda Diabetes 2 06/27 06/27 Farooq DO mellitus without mention of complication, type II or unspecified type, not stated as uncontrolled Diabetes 250.02 Resolved Indigo Diabetes mellitus, type 06/27 PROFESSIONAL HOUSING CONSULTANT mellitus II, without mention uncontrolled of complication, [...] Resolved Indigo Routine gynecological 12/14 07/02 Yo PROFESSIONAL HOUSING CONSULTANT gynecological examination examination Postmenopausal 627.1 Resolved Indigo Postmenopausal bleeding 12/14 PROFESSIONAL HOUSING CONSULTANT bleeding Screening for V76.51 Resolved Indigo Screening for malignant 12/26 07/02 Yokum PROFESSIONAL HOUSING CONSULTANT malignant neoplasms of neoplasms of colon colon Insomnia, 307.42 Active Indigo 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 PROFESSIONAL HOUSING CONSULTANT disorder of initiating or maintaining sleep Establish care V68.89 Resolved Indigo Encounters for or get 01/16 07/02 Yo PROFESSIONAL HOUSING CONSULTANT other specified acquainted administrative visit purpose Weakness, left 342.90 Resolved Indigo Hemiplegia, side of body 06/20 10/18 Yokum PROFESSIONAL HOUSING CONSULTANT unspecified, affecting unspecified side TIA 435.9 Active Indigo Unspecified 06/20 07/02 Yokum PROFESSIONAL HOUSING CONSULTANT transient cerebral ischemia Knee pain, 719.46 Active Indigo Pain in joint bilateral 06/20 10/18 Yokum PROFESSIONAL HOUSING CONSULTANT involving lower leg Bronchitis 490 Resolved Indigo Bronchitis, not 07/23 10/18 Y[place]um PROFESSIONAL HOUSING CONSULTANT specified as acute or chronic Diabetes 357.2 Active Maliheh Polyneuropathy mellitus, 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DATASTAGE DEVELOPER 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y Knee pain, 719.46 Active Indigo Pain in joint right 06/20 10/18 Yokum PROFESSIONAL HOUSING CONSULTANT involving lower leg Jesi 112.3 Active Indigo Candidiasis of intertrigo 10/09 10/18 Y[place]um PROFESSIONAL HOUSING CONSULTANT skin and nails Hyperlipidemia 272.4 Active Anne Other and 12/24 12/24 Neil unspecified RMA hyperlipidemia Incontinence, 788.33 Active Indigo Mixed mixed, 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 PROFESSIONAL HOUSING CONSULTANT incontinence urge/stress (female) (male) Female stress [...] EDEMA, ICD-782.3 Inactive Indigo Yokum LEGS, BILATERAL PROFESSIONAL HOUSING CONSULTANT HYPOKALEMIA, MILD ICD-276.8 Inactive Indigo Y[place]um PROFESSIONAL HOUSING CONSULTANT Diabetes mellitus, ICD-250.02 Inactive Indigo Yokum type II, PROFESSIONAL HOUSING CONSULTANT uncontrolled FATIGUE ICD-780.79 Inactive Indigo Y[place]um PROFESSIONAL HOUSING CONSULTANT Routine ICD-V72.31 Inactive Indigo Yokum gynecological PROFESSIONAL HOUSING CONSULTANT examination Postmenopausal ICD-627.1 Inactive Indigo Yokum 2015 bleeding PROFESSIONAL HOUSING CONSULTANT Screening for ICD-V76.51 Inactive Indigo Yokum 2015 malignant PROFESSIONAL HOUSING CONSULTANT neoplasms of colon Establish care or ICD-V68.89 Inactive Indigo Yokum get acquainted PROFESSIONAL HOUSING CONSULTANT visit Weakness, left ICD-342.90 Inactive Indigo Yokum side of body PROFESSIONAL HOUSING CONSULTANT Bronchitis ICD-490 Inactive Indigo Y[place]um PROFESSIONAL HOUSING CONSULTANT Sinusitis, ICD-461.1 Inactive Ismael Coyne frontal, acute Amandeep ONEAL Laryngitis, acute ICD-464.00 Inactive Ismael Coyne Amandeep ONEAL Medication List Medication Instructions Start Stop Generic NDC Status Provider Patient Date Date Name Instruction METFORMIN 2 tablets METFORMIN 89590108693 No Indigo Active HCL 500 MG by mouth HCL Longer Yokum TB24 twice Active PROFESSIONAL HOUSING CONSULTANT daily AMARYL 1 MG 1 tablet GLIMEPIRID 77414012070 No Indigo Active ORAL TABS orally E Longer Yokum twice Active PROFESSIONAL HOUSING CONSULTANT daily NYSTATIN apply to NYSTATIN 21284923296 Active Indigo Active 072979 rash TID Yokum UNIT/GM PRN PROFESSIONAL HOUSING CONSULTANT CREA TROKENDI XR 2 tab TOPIRAMATE 73524554243 Active Malihe Active 100 MG ORAL daily h [id number] Ziglar i DATASTAGE DEVELOPER METOPROLOL 1 tab po METOPROLOL 68883160106 Active Indigo Active TARTRATE 25 bid TARTRATE Yokum MG TABS PROFESSIONAL HOUSING CONSULTANT AZITHROMYCI 2 po qd x AZITHROMYC 06125666210 No Jillin Active N 250 MG 1 day, IN Longer a TABS then 1 po Active Frazel qd x 4 l PROFESSIONAL HOUSING CONSULTANT days PREDNISONE 2 pills PREDNISONE 27926749047 No Jillin Active 20 MG TAB daily x 4 Longer a days Active Frazel l PROFESSIONAL HOUSING CONSULTANT PIOGLITAZON take one PIOGLITAZO 58790774862 Active Malihe Active E HCL 30 MG a day NE HCL h ORAL TABS Ziglar i DATASTAGE DEVELOPER JANUVIA 100 1 tablet SITAGLIPTI 36216654539 No Indigo Active MG TABS by mouth N Longer Yokum daily PHOSPHATE Active PROFESSIONAL HOUSING CONSULTANT ATORVASTATI 1 pill by ATORVASTAT 33003217952 Active Indigo Active N CALCIUM mouth IN CALCIUM Yokum 10 MG TABS nightly, PROFESSIONAL HOUSING CONSULTANT for cholester ol ASPIRIN 81 1 po qd ASPIRIN 39725900583 Active Indigo Active MG ORAL Y[place]um TABS PROFESSIONAL HOUSING CONSULTANT NITROFURANT One NITROFURAN 36706554799 No Indigo Active OIN MONOHYD capsule TOIN Longer Yokum MACRO 100 BID for MONOHYD Active PROFESSIONAL HOUSING CONSULTANT MG CAPS UTI MACRO TRAMADOL 1/2 po TRAMADOL 24724767033 No Jillin Active HCL 50 MG tid with HCL Longer a TABS ES Active Frazel Tylenol l PROFESSIONAL HOUSING CONSULTANT prn pain VYVANSE 20 1 tablet LISDEXAMFE 18853881940 No Jillin Active MG ORAL daily for TAMINE Longer a CAPS binge DIMESYLATE Active Frazel eating l PROFESSIONAL HOUSING CONSULTANT disorder LASIX 20 MG 2 tablet FUROSEMIDE 19799092121 Active Indigo Active TAB by mouth Yokum daily PROFESSIONAL HOUSING CONSULTANT CELEBREX 1 tablet CELECOXIB 47351315209 Active Indigo Active 200 MG CAPS by mouth Yokum daily PROFESSIONAL HOUSING CONSULTANT with meals PREDNISONE 2 tablets PREDNISONE 12178200333 No Joseph Active 20 MG TAB today, Longer W Farooq then 1 Active DO tablet days 2-4 DIFLUCAN 1 tablet FLUCONAZOL 83886642175 No Joseph Active 100 MG TAB by mouth E Longer W Farooq daily x 3 Active DO days DIFLUCAN 1 tablet FLUCONAZOL 52844455036 No Joseph Active 100 MG TABS by mouth E Longer W Farooq every Active DO other day for 2 doses ZOFRAN 4 MG 1 po q6hr ONDANSETRO 90282702883 Active Joseph Active TABS PRN N HCL W Farooq Nausea DO PREDNISONE 2 tabs PREDNISONE 95639587894 No Joseph Active 20 MG TAB daily for Longer W Farooq 3 days, 1 Active DO tab daily for 3 days, 1/2 tab daily for 2 days AMOXICILLIN 2 po BID AMOXICILLI 01665378283 No Maite C Active 500 MG CAPS x 10 days N Longer Madril Active PhD LISINOPRIL 1 tablet LISINOPRIL 96579164335 No Maite C Active 20 MG TABS by mouth Longer Madril daily Active PhD POTASSIUM 2 capsule POTASSIUM 90708960462 No Joseph Active CHLORIDE CR by mouth CHLORIDE Longer W Farooq 10 MEQ CPCR daily Active DO SPIRONOLACT 1 tablet SPIRONOLAC 95059813687 No Joseph Active ONE 25 MG by mouth TONE Longer W Farooq TAB daily Active DO METFORMIN 1 tablet METFORMIN 95116622481 No Joseph Active HCL 500 MG by mouth HCL Longer W [place]q TABS twice Active DO daily AMARYL 1 MG 1 tab GLIMEPIRID 25982829394 No Joseph Active TABS twice E Longer W Farooq daily Active DO PHENTERMINE 1 po q am PHENTERMIN 55845893049 No Joseph Active HCL 37.5 MG for wt. E HCL Longer W Far[place]q TABS loss Active DO PROMETHAZIN 1 tab by PROMETHAZI 48321974741 No Joseph Active E HCL 25 MG mouth NE HCL Longer W Far[place]q TABS every 6 Active DO hours as needed CIPROFLOXAC Take one CIPROFLOXA 41558693400 No Joseph Active IN HCL 500 (1) DELORES HCL Longer W Farooq MG TABS tablet by Active DO mouth twice a day ABILIFY 5 one p.o. ARIPIPRAZO 32497404994 No Joseph Active MG TABS q. day LE Longer W Farooq Active DO HYDROCHLORO 2 tabs HYDROCHLOR 89044721100 No Joseph Active THIAZIDE 25 every OTHIAZIDE Longer W Farooq MG TABS morning Active DO ABILIFY 2 1 po q hs ARIPIPRAZO 01425812958 No Joseph Active MG TABS for major LE Longer W Farooq depressio Active DO n ADIPEX-P 1/2 tab PHENTERMIN 49245414517 No Casey Active 37.5 MG po q am E HCL Longer [place] CAPS for Active PA weight loss CIPRO 500 1 tablet CIPROFLOXA 71523265226 No Casey Active MG TAB by mouth DELORES HCL Longer Leonarda twice Active PA daily NECON 1/35 1 po NORETHINDR 79601900889 No Casey Active (28) 1-35 daily ONE-ETH Longer Leonarda MG-MCG TABS ESTRADIOL Active PA TRAMADOL 1 po tid TRAMADOL 69456089231 No Casey Active HCL 50 MG with ES HCL Longer Leonarda TABS Tylenol Active PA FLUCONAZOLE one p.o. FLUCONAZOL 47286293747 No Casey Active 100 MG TABS q. day 2 E Longer Leonarda days Active PA POTASSIUM 1 capsule POTASSIUM 66475393305 No Casey Active CHLORIDE CR by mouth CHLORIDE Longer 10 MEQ CPCR daily Active PA IMIPRAMINE Take 6 IMIPRAMINE 85599644653 Active Indigo Active HCL 50 MG tablets HCL [place] TABS by mouth PROFESSIONAL HOUSING CONSULTANT at bedtime DIFLUCAN 1 tablet FLUCONAZOL 05166156537 No Joseph Active 100 MG TAB by mouth E Longer W Farooq daily Active DO VERAPAMIL 2 po bid VERAPAMIL 53147519580 Active Indigo Active HCL CR 120 HCL Yokum MG TAB CR PROFESSIONAL HOUSING CONSULTANT PERMETHRIN apply PERMETHRIN 59717721158 No Joseph Active 5 % CREA neck to Longer W Farooq toes Active DO tonight and then rinse off in morning. repeat at 7 days SEROQUEL XR one p.o. QUETIAPINE 37209215772 No Joseph Active 50 MG q. FUMARATE Longer W Farooq [id number] evening Active DO TRAMADOL 1-2 TRAMADOL 58568991916 No Joseph Active HCL 50 MG tablets HCL Longer W [place]q TABS every 6-8 Active DO hours as needed for pain ALPRAZOLAM one p.o. ALPRAZOLAM 88152396017 Active Indigo Active 3 MG q.h.s. Yokum [id number] PROFESSIONAL HOUSING CONSULTANT ALPRAZOLAM Take 1 ALPRAZOLAM 91766709821 No Joseph Active XR tablet by [id number] Longer W Farooq [id number] mouth at Active DO bedtime DIFLUCAN 1 tablet FLUCONAZOL 58673558570 No Joseph Active 100 MG TAB by mouth E Longer W Farooq daily Active DO AMBIEN 10 1 tab by ZOLPIDEM 00735917219 Active Indigo Active MG TAB mouth at TARTRATE Yokum bedtime PROFESSIONAL HOUSING CONSULTANT as needed for sleep DIFLUCAN 100 1 tablet DIFLUCAN 405477 FLUCONAZOLE Inactive MG TAB by mouth 100 MG TAB daily ALPRAZOLAM Take 1 ALPRAZOLAM ALPRAZOLAM Inactive XR [id number] tablet by XR [id number] mouth at [id number] bedtime TRAMADOL HCL 1-2 TRAMADOL 050837 TRAMADOL HCL Inactive 50 MG TABS tablets HCL 50 MG every 6-8 TABS hours as needed for pain SEROQUEL XR one p.o. SEROQUEL XR QUETIAPINE Inactive 50 MG q. 50 MG FUMARATE [id number] evening [id number] PERMETHRIN 5 apply PERMETHRIN 494515 PERMETHRIN Inactive % CREA neck to 5 % CREA toes tonight and then rinse off in morning. repeat at 7 days DIFLUCAN 100 1 tablet DIFLUCAN 390487 FLUCONAZOLE Inactive MG TAB by mouth 100 MG TAB daily POTASSIUM 1 capsule POTASSIUM POTASSIUM Inactive CHLORIDE CR by mouth CHLORIDE CR CHLORIDE 10 MEQ CPCR daily 10 MEQ CPCR FLUCONAZOLE one p.o. FLUCONAZOLE 263213 FLUCONAZOLE Inactive 100 MG TABS q. day 2 100 MG TABS days TRAMADOL HCL 1 po tid TRAMADOL 476095 TRAMADOL HCL Inactive 50 MG TABS with ES HCL 50 MG Tylenol TABS NECON 1/35 1 po NECON 1/35 NORETHINDRONE- Inactive (28) 1-35 daily (28) 1-35 ETH ESTRADIOL MG-MCG TABS MG-MCG TABS CIPRO 500 MG 1 tablet CIPRO 500 024762 CIPROFLOXACIN Inactive TAB by mouth MG TAB HCL twice daily ADIPEX-P 1/2 tab ADIPEX-P 041331 PHENTERMINE Inactive 37.5 MG CAPS po q am 37.5 MG HCL for CAPS weight loss ABILIFY 2 MG 1 po q hs ABILIFY 2 762200 ARIPIPRAZOLE Inactive TABS for major MG TABS depressio n HYDROCHLOROT 2 tabs HYDROCHLORO 174731 HYDROCHLOROTHI Inactive HIAZIDE 25 every THIAZIDE 25 AZIDE MG TABS morning MG TABS ABILIFY 5 MG one p.o. ABILIFY 5 932481 ARIPIPRAZOLE Inactive TABS q. day MG TABS CIPROFLOXACI Take one CIPROFLOXAC 800828 CIPROFLOXACIN Inactive N HCL 500 MG (1) IN HCL 500 HCL TABS tablet by MG TABS mouth twice a day PROMETHAZINE 1 tab by PROMETHAZIN 544372 PROMETHAZINE Inactive HCL 25 MG mouth E HCL 25 MG HCL TABS every 6 TABS hours as needed PHENTERMINE 1 po q am PHENTERMINE 575851 PHENTERMINE Inactive HCL 37.5 MG for wt. HCL 37.5 MG HCL TABS loss TABS AMARYL 1 MG 1 tab AMARYL 1 MG 324042 GLIMEPIRIDE Inactive TABS twice TABS daily METFORMIN 1 tablet METFORMIN 533994 METFORMIN HCL Inactive HCL 500 MG by mouth HCL 500 MG TABS twice TABS daily SPIRONOLACTO 1 tablet SPIRONOLACT 154492 SPIRONOLACTONE Inactive NE 25 MG TAB by mouth ONE 25 MG daily TAB POTASSIUM 2 capsule POTASSIUM POTASSIUM Inactive CHLORIDE CR by mouth CHLORIDE CR CHLORIDE 10 MEQ CPCR daily 10 MEQ CPCR LISINOPRIL 1 tablet LISINOPRIL 770113 LISINOPRIL Inactive 20 MG TABS by mouth 20 MG TABS daily DIFLUCAN 100 1 tablet DIFLUCAN 19760111 FLUCONAZOLE Inactive MG TABS by mouth 100 MG TABS every other day for 2 doses DIFLUCAN 100 1 tablet DIFLUCAN 775960 FLUCONAZOLE Inactive MG TAB by mouth 100 MG TAB daily x 3 days PREDNISONE 2 tablets PREDNISONE 804584 PREDNISONE Inactive 20 MG TAB today, 20 MG TAB then 1 tablet days 2-4 VYVANSE 20 1 tablet VYVANSE 20 LISDEXAMFETAMI Inactive MG ORAL CAPS daily for MG ORAL NE DIMESYLATE binge CAPS eating disorder TRAMADOL HCL 1/2 po TRAMADOL 552089 TRAMADOL HCL Inactive 50 MG TABS tid with HCL 50 MG ES TABS Tylenol prn pain JANUVIA 100 1 tablet JANUVIA 100 SITAGLIPTIN Inactive MG TABS by mouth MG TABS PHOSPHATE daily AMARYL 1 MG 1 tablet AMARYL 1 MG 033511 GLIMEPIRIDE Inactive ORAL TABS orally ORAL TABS twice daily METFORMIN 2 tablets METFORMIN METFORMIN HCL Inactive HCL 500 MG by mouth HCL 500 MG TB24 twice TB24 daily AMOXICILLIN 2 po BID AMOXICILLIN 979865 AMOXICILLIN Inactive 500 MG CAPS x 10 days 500 MG CAPS PREDNISONE 2 tabs PREDNISONE 673564 PREDNISONE Inactive 20 MG TAB daily for 20 MG TAB 3 days, 1 tab daily for 3 days, 1/2 tab daily for 2 days NITROFURANTO One NITROFURANT 3568908 NITROFURANTOIN Inactive IN MONOHYD capsule OIN MONOHYD MONOHYD MACRO MACRO 100 MG BID for MACRO 100 CAPS UTI MG CAPS PREDNISONE 2 pills PREDNISONE 743391 PREDNISONE Inactive 20 MG TAB daily x 4 20 MG TAB days AZITHROMYCIN 2 po qd x AZITHROMYCI 5183888 AZITHROMYCIN Inactive 250 MG TABS 1 day, [...] HGBA1C - Chemistry sodium, serum 140 mmol/L 556-641 2085/06/03 potassium, serum 3.9 mmol/L 3.5-5.2 chloride, serum [...] Panel - Chemistry sodium, serum 136 mmol/L 979-929 0696/01/04 carbon dioxide, venous blood 27.0 mmol/L 21.0-32.0 potassium, serum 4.6 mmol/L 3.5-5.2 chloride, serum 98 mmol/L 98-107 blood glucose 174 mg/dL 65-110 urea nitrogen, blood 12 mg/dL 7-18 creatinine, serum 0.78 mg/dL 0.55-1.30 alanine aminotransferase (SGPT), serum 65 U/L 12-78 aspartate aminotransferase (SGOT), serum 34 U/L 15-37 calcium, serum 8.9 mg/dL 8.5-10.1 bilirubin, serum, total 0.40 mg/dL 0.00-1.00 cholesterol, serum 219 mg/dL 872-189 2845/01/04 triglyceride, serum, fasting 214 mg/dL 30-200 HDL cholesterol, serum 39 mg/dL 32-96 LDL cholesterol, serum 137 mg/dL 0-130 Lab Report: Lipid Panel - Chemistry cholesterol, serum 157 mg/dL 093-483 5533/08/22 triglyceride, serum, fasting 215 mg/dL 30-200 HDL [...] mg/dL Encounters Code Encounter Date Provider Facility CPT-79989 Level 4 New Patient Yury Benoit MD [facility] 15:17:12 CDT CPT-38394 Level 3 Est. Patient [facility] - 13:37:46 CDT [place] CPT-66136 Level 4 Est. Patient [facility] - 10:01:06 CDT [place] CPT-67754 Level 3 Est. Patient [facility] 08:58:07 CDT DATASTAGE DEVELOPER CPT-01586 Level 3 Est. Patient Faby Marino [facility] 14:40:56 CDT [facility] CPT-49226 Level 4 Est. Patient [facility] 17:29:53 FLAME CHANNELER DATASTAGE DEVELOPER CPT-81034 Level 4 Est. Patient [facility] 09:51:54 FLAME CHANNELER CPT-80738 Level 3 Est. Patient Indigo Sexton ALEJANDRO [facility] 18:59:38 CDT CPT-52230 Level 3 Est. Patient Joseph Edwin [facility] 14:42:12 CDT -RHC CPT-18814 Level 3 Est. Patient Joseph Pineda [facility] 22:18:20 CDT -RHC CPT-87210 Level 3 Est. Patient Joseph Edwin [facility] 16:46:04 CDT -RHC CPT-30750 Level 3 Est. Patient Joseph Edwin [facility] 15:39:53 CDT -RHC CPT-98946 Level 3 Est. Patient Maite Sanchez MD [facility] 13:33:34 CDT -RHC CPT-19239 Level 3 Est. Patient [place] Edwin [facility] 11:37:08 CDT -RHC CPT-27034 Level 3 Est. Patient Joseph Edwin [facility] 17:13:29 FLAME CHANNELER -RHC CPT-70597 Level 3 Est. Patient [place] Edwin [facility] 18:42:44 CDT CPT-85589 Level 3 Est. Patient [place] Edwin [facility] 16:25:39 CDT CPT-49724 Level 3 Est. Patient Casey Brower [facility] 09:52:45 CDT -RHC CPT-32043 Level 3 Est. Patient Joseph Edwin [facility] 11:03:29 FLAME CHANNELER -RHC CPT-28577 Level 3 Est. Patient [place] Edwin [facility] 11:03:08 FLAME CHANNELER -RHC CPT-81974 Level 3 Est. Patient [facility] 14:33:31 CDT -RHC CPT-26423 Level 3 Est. Patient Joseph Edwin [facility] 17:05:02 FLAME CHANNELER -RHC CPT-32931 Level 3 Est. Patient [facility] 17:48:06 FLAME CHANNELER -RHC CPT-06698 Level 3 Est. Patient Joseph Pineda [facility] 14:59:22 FLAME CHANNELER -RHC CPT-24600 Level 3 Est. Patient Joseph Pineda [facility] - 21:45:56 FLAME CHANNELER Lindsay [facility] CPT-98964 Level 3 Est. Patient Joseph Pineda [facility] 21:29:50 CDT -RHC CPT-77469 Level 3 Est. Patient Joseph Pineda [facility] 12:41:09 CDT -RHC Procedures Code Procedure Name Date Entry Date Standard Description CPT-40535 Postop F/U Visit 12:08:35 CDT CPT-02302 Postop F/U Visit 18:20:10 CDT CPT-A4351 Coloplast Female Cath 09:37:10 CDT CPT-23423 Urine Dip (Floor Use Only) 15:17:13 CDT CPT-33229 Dil F ureth int 15:17:13 CDT CPT-84840 Venipuncture Draw Fee 09:19:08 CDT CPT-62813 Lipid - LAB USE ONLY 09:19:07 CDT CPT-JTINJ Asp/Joint Injection 09:26:49 CDT CPT-73623 Chest 2V Frontal and Lat 14:47:43 CDT CPT-JTINJ Asp/Joint Injection 09:51:53 FLAME CHANNELER CPT-OV Office Visit 17:39:05 CDT CPT-OV Office Visit 15:19:50 CDT CPT-42108 Sono transvag pelvis non OB uterus ovaries cervix 18:04:34 CDT CPT-18456 Venipuncture Draw Fee 08:55:49 FLAME CHANNELER
--- OUTSIDE RECORDS SUMMARY | 2016-11-20 14:12 | External Medical Summary | Clinical Summary ---
:1965 Author Organization [employer] [facility] Address [address] [place] [address] Phone Allergies, Adverse Reactions, Alerts Allergy Name Reaction Description Start Date Severity Status Provider NKDA Critical No Longer Indigo [facility] INSTITUTION DIRECTOR Active NKDA Critical Inactive Adrianna Elder [...] Resolved Indigo Other malaise 05/24 07/02 Yokum INSTITUTION DIRECTOR and fatigue SLEEP APNEA, 327.23 Active Joseph [...] Resolved Indigo Hypopotassemia MILD 10/29 07/02 Yo INSTITUTION DIRECTOR Diabetes, Type 250.00 Inactive Joseph Pineda Diabetes 2 06/27 06/27 Farooq DO mellitus without mention of complication, type II or unspecified type, not stated as uncontrolled Diabetes 250.02 Active Indigo Diabetes mellitus, type 06/27um INSTITUTION DIRECTOR mellitus II, without mention uncontrolled of complication, [...] Resolved Indigo Routine gynecological 12/14 07/02 Yo INSTITUTION DIRECTOR gynecological examination examination Postmenopausal 627.1 Resolved Indigo Postmenopausal bleeding 12/14 07/02 Youm INSTITUTION DIRECTOR bleeding Screening for V76.51 Resolved Indigo Screening for malignant 12/26 07/02 Yokum INSTITUTION DIRECTOR malignant neoplasms of neoplasms of colon colon Insomnia, 307.42 Active Indigo 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 INSTITUTION DIRECTOR disorder of initiating or maintaining sleep Establish care V68.89 Resolved Indigo Encounters for or get 01/16 07/02 Yo INSTITUTION DIRECTOR other specified acquainted administrative visit purpose Weakness, left 342.90 Active Indigo Hemiplegia, side of body 06/20 06/20 [facility]um INSTITUTION DIRECTOR unspecified, affecting unspecified side TIA 435.9 Active Indigo Unspecified 06/20 07/02 [facility] INSTITUTION DIRECTOR transient cerebral ischemia Knee pain, 719.46 Active Indigo Pain in joint bilateral 06/20 07/02 [facility] INSTITUTION DIRECTOR involving lower leg Bronchitis 490 Active Jillina Bronchitis, not 07/23 07/23 Frazell specified as INSTITUTION DIRECTOR acute or chronic SCABIES ICD-133.0 Inactive Maite C Ronyril PhD ABNORMAL VAGINAL ICD-626.9 Inactive Maite C Ronyril BLEEDING PhD OTH GENERAL ICD-V70.3 Inactive Maite C Madril MEDICAL MD PhD EXAMINATION ADMIN PURPOSES OTHER ABNORMAL ICD-790.29 Inactive Maite C Madril GLUCOSE PhD ACUTE BRONCHITIS ICD-466.0 Inactive Maite C Madril PhD FATIGUE ICD-780.79 Inactive Indigo [facility] INSTITUTION DIRECTOR HYPOKALEMIA, MILD ICD-276.8 Inactive Indigo [facility] INSTITUTION DIRECTOR Routine ICD-V72.31 Inactive Indigo [facility] gynecological INSTITUTION DIRECTOR examination Postmenopausal ICD-627.1 Inactive Indigo Yokum 2015 bleeding INSTITUTION DIRECTOR Screening for ICD-V76.51 Inactive Indigo Yokum 2015 malignant INSTITUTION DIRECTOR neoplasms of colon Establish care or ICD-V68.89 Inactive Indigo Yokum get acquainted INSTITUTION DIRECTOR visit Sinusitis, ICD-461.1 Inactive Ismael Coyne frontal, acute Amandeep ONEAL Laryngitis, acute ICD-464.00 Inactive Ismael Coyne Amandeep ONEAL Medication List Medication Instructions Start Stop Generic NDC Status Provider Patient Date Date Name Instruction METOPROLOL 1 tab po METOPROLOL 25299217981 Active Sherice Active TARTRATE 25 MG bid TARTRATE Wilfredo RMA TABS AZITHROMYCIN 2 po qd 2 AZITHROMYCIN 07928813325 No Jillina Active 250 MG TABS x 1 day, 0 Longer Frazell then 1 1 Active INSTITUTION DIRECTOR po qd x 6 4 days / 0 3 / 2 6 PREDNISONE 20 2 pills 2 PREDNISONE 05145640097 No Jillina Active MG TAB daily x 0 Longer Frazell 4 days 1 Active INSTITUTION DIRECTOR 6 / 0 3 / 2 5 PIOGLITAZONE take one PIOGLITAZONE 72242597101 Active Maliheh Active HCL 30 MG ORAL a day HCL Ziglari TABS RECOVERER JANUVIA 100 MG 1 tablet 2 SITAGLIPTIN 86040245756 No Indigo Active TABS by mouth 0 PHOSPHATE Longer Yokum daily 1 Active INSTITUTION DIRECTOR 6 / 0 / 6 ATORVASTATIN 1 pill ATORVASTATIN 39419594875 Active Indigo Active CALCIUM 10 MG by mouth CALCIUM [facility] TABS nightly, INSTITUTION DIRECTOR for choleste rol TROKENDI XR 100 1 tab TOPIRAMATE 16641499172 Active Indigo Active MG ORAL daily Yok[facility] [id number] INSTITUTION DIRECTOR ASPIRIN 81 MG 1 po qd ASPIRIN 01521371326 Active Indigo Active ORAL TABS [facility] INSTITUTION DIRECTOR NITROFURANTOIN One 2 NITROFURANTOIN 53324514748 No Indigo Active MONOHYD MACRO capsule 0 MONOHYD MACRO Longer Yokum 100 MG CAPS BID for 1 Active INSTITUTION DIRECTOR UTI 6 / 0 3 METFORMIN HCL 2 METFORMIN HCL 03017421448 Active Indigo Active 500 MG TB24 tablets [facility] by mouth INSTITUTION DIRECTOR twice daily TRAMADOL HCL 50 1/2 po 2 TRAMADOL HCL 00471452517 No Jillina Active MG TABS tid with 0 Longer Frazell ES 1 Active INSTITUTION DIRECTOR Tylenol 5 prn pain / 0 / 2 VYVANSE 20 MG 1 tablet 2 LISDEXAMFETAMIN 03898813077 No Jillina Active ORAL CAPS daily 0 E DIMESYLATE Longer Frazell for 1 Active INSTITUTION DIRECTOR binge 5 eating / disorder 0 8 / 2 LASIX 20 MG TAB 2 tablet FUROSEMIDE 18412344880 Active Indigo Active by mouth Yokum daily INSTITUTION DIRECTOR CELEBREX 200 MG 1 tablet CELECOXIB 39203225103 Active Joseph W Active CAPS by mouth Farooq DO daily with meals PREDNISONE 20 2 2 PREDNISONE 11570566318 No Joseph W Active MG TAB tablets 0 Longer Farooq DO today, 1 Active then 1 5 tablet / days 2-4 0 3 DIFLUCAN 100 MG 1 tablet 2 FLUCONAZOLE 38529603573 No Joseph W Active TAB by mouth 0 Longer Farooq DO daily x 1 Active 3 days 5 / 0 3 AMARYL 1 MG 1 tablet GLIMEPIRIDE 81583861007 Active Joseph W Active ORAL TABS orally Farooq DO twice daily DIFLUCAN 100 MG 1 tablet 2 FLUCONAZOLE 67596368451 No Joseph W Active TABS by mouth 0 Longer Farooq DO every 1 Active other 5 day for / 2 doses 0 1 / 2 3 ZOFRAN 4 MG 1 po ONDANSETRON HCL 41328725869 Active Joseph W Active TABS q6hr PRN Farooq DO Nausea PREDNISONE 20 2 tabs 2 PREDNISONE 38128477493 No Joseph W Active MG TAB daily 0 Longer Farooq DO for 3 1 Active days, 1 4 tab / daily 1 for 3 0 days, / 1/2 tab 2 daily 5 for 2 days AMOXICILLIN 500 2 po BID 2 AMOXICILLIN 81447116283 No Maite C Active MG CAPS x 10 0 Longer Madril days 1 Active PhD 0 / 2 0 LISINOPRIL 20 1 tablet 2 LISINOPRIL 04841730408 No Maite C Active MG TABS by mouth 0 Longer Madril daily 1 Active PhD 0 / 0 POTASSIUM 2 2 POTASSIUM 82231184288 No Joseph Pineda Active CHLORIDE CR 10 capsule 0 CHLORIDE Longer Farooq DO MEQ CPCR by mouth 1 Active daily 4 / 0 8 / 2 9 SPIRONOLACTONE 1 tablet 2 SPIRONOLACTONE 85134805662 No Joseph Pineda Active 25 MG TAB by mouth 0 Longer Farooq DO daily 1 Active 4 / 0 8 2 9 METFORMIN HCL 1 2 METFORMIN HCL 63828863646 No Joseph W Active 500 MG TABS tablet 0 Longer Farooq DO by mouth 1 Active twice 4 daily / 0 8 / 2 9 AMARYL 1 MG 1 tab 2 GLIMEPIRIDE 38395293109 No Joseph W Active TABS twice 0 Longer Farooq DO daily 1 Active 4 / 0 8 / 2 9 PHENTERMINE HCL 1 po q 2 PHENTERMINE HCL 56317093968 No Joseph W Active 37.5 MG TABS am for 0 Longer Farooq DO wt. loss 1 Active 3 / 1 2 / 2 3 PROMETHAZINE 1 tab by 2 PROMETHAZINE 55796226013 No Joseph W Active HCL 25 MG TABS mouth 0 HCL Longer Farooq DO every 6 1 Active hours as 3 needed / 0 9 / 0 9 CIPROFLOXACIN Take one 2 CIPROFLOXACIN 02811922026 No Joseph W Active HCL 500 MG TABS (1) 0 HCL Longer Farooq DO tablet 1 Active by mouth 3 twice a / day 0 9 / 0 9 ABILIFY 5 MG one p.o. 2 ARIPIPRAZOLE 81128169623 No Joseph W Active TABS q. day 0 Longer Farooq DO 1 Active 3 / 0 9 / 0 9 HYDROCHLOROTHIA 2 tabs 2 HYDROCHLOROTHIA 22918413484 No Joseph W Active ZIDE 25 MG TABS every 0 ZIDE Longer Farooq DO morning 1 Active 3 / 0 6 / 2 7 ABILIFY 2 MG 1 po q 2 ARIPIPRAZOLE 36808191258 No Joseph W Active TABS hs for 0 Longer Farooq DO major 1 Active depressi 3 on / 0 5 / 0 7 ADIPEX-P 37.5 1/2 tab 2 PHENTERMINE HCL 05236286579 No Casey Active MG CAPS po q am 0 Longer [place] for 1 Active PA weight 3 loss / 0 5 / 0 1 CIPRO 500 MG 1 tablet 2 CIPROFLOXACIN 17880250818 No Casey Active TAB by mouth 0 HCL Longer [place] twice 1 Active PA daily 3 / 0 5 / 0 1 NECON 1/35 (28) 1 po 2 NORETHINDRONE-E 05691349860 No Casey Active 1-35 MG-MCG daily 0 TH ESTRADIOL Longer [place] TABS 1 Active PA 3 / 0 5 / 0 1 TRAMADOL HCL 50 1 po tid 2 TRAMADOL HCL 54511761632 No Casey Active MG TABS with ES 0 Longer Tylenol 1 Active PA 3 / 0 5 / 0 1 FLUCONAZOLE 100 one p.o. 2 FLUCONAZOLE 34022517954 No Casey Active MG TABS q. day 2 0 Longer [place] days 1 Active PA 3 / 0 5 / 0 1 POTASSIUM 1 2 POTASSIUM 26730013233 No Casey Active CHLORIDE CR 10 capsule 0 CHLORIDE Longer MEQ CPCR by mouth 1 Active PA daily 3 / 0 5 / 0 1 IMIPRAMINE HCL Take 6 IMIPRAMINE HCL 96632496949 Active Joseph W Active 50 MG TABS tablets Farooq DO by mouth at bedtime DIFLUCAN 100 MG 1 tablet 2 FLUCONAZOLE 69723253069 No Joseph W Active TAB by mouth 0 Longer Farooq DO daily 1 Active 2 / 0 2 / 2 4 VERAPAMIL HCL 2 po bid VERAPAMIL HCL 55644971951 Active Joseph W Active CR 120 MG TAB Farooq DO CR PERMETHRIN 5 % apply 2 PERMETHRIN 53518167295 No Joseph W Active CREA neck to 0 Longer Farooq DO toes 1 Active tonight 2 and then / rinse 0 off in 1 morning. / repeat 2 at 7 0 days SEROQUEL XR 50 one p.o. 2 QUETIAPINE 05762313472 No Joseph W Active MG [id number] q. 0 FUMARATE Longer Farooq DO evening 1 Active 2 / 0 1 / 2 0 TRAMADOL HCL 50 1-2 2 TRAMADOL HCL 26604758868 No Joseph W Active MG TABS tablets 0 Longer Farooq DO every 1 Active 6-8 2 hours as / needed 0 for pain 1 / 2 0 ALPRAZOLAM 3 MG one p.o. ALPRAZOLAM 93402636946 Active Indigo Active [id number] q.h.s. [facility] INSTITUTION DIRECTOR ALPRAZOLAM XR Take 1 2 ALPRAZOLAM 46619326771 No Joseph W Active [id number] tablet 0 [id number] Longer Farooq DO by mouth 1 Active at 1 bedtime / 1 1 / 2 9 DIFLUCAN 100 MG 1 tablet 2 FLUCONAZOLE 20217523485 No Joseph W Active TAB by mouth 0 Longer Farooq DO daily 1 Active 0 / 0 6 AMBIEN 10 MG 1 tab by ZOLPIDEM 18337227932 Active Afsaneh Active TAB mouth at TARTRATE Gericke, bedtime MA as needed for sleep DIFLUCAN 100 1 tablet DIFLUCAN 022224 FLUCONAZOLE Inactive MG TAB by mouth 100 MG TAB daily ALPRAZOLAM Take 1 ALPRAZOLAM ALPRAZOLAM Inactive XR [id number] tablet by XR [id number] mouth at [id number] bedtime TRAMADOL HCL 1-2 TRAMADOL 698307 TRAMADOL HCL Inactive 50 MG TABS tablets HCL 50 MG every 6-8 TABS hours as needed for pain SEROQUEL XR one p.o. SEROQUEL XR QUETIAPINE Inactive 50 MG q. 50 MG FUMARATE [id number] evening [id number] PERMETHRIN 5 apply PERMETHRIN 125642 PERMETHRIN Inactive % CREA neck to 5 % CREA toes tonight and then rinse off in morning. repeat at 7 days DIFLUCAN 100 1 tablet DIFLUCAN 087932 FLUCONAZOLE Inactive MG TAB by mouth 100 MG TAB daily POTASSIUM 1 capsule POTASSIUM POTASSIUM Inactive CHLORIDE CR by mouth CHLORIDE CR CHLORIDE 10 MEQ CPCR daily 10 MEQ CPCR FLUCONAZOLE one p.o. FLUCONAZOLE 279983 FLUCONAZOLE Inactive 100 MG TABS q. day 2 100 MG TABS days TRAMADOL HCL 1 po tid TRAMADOL 025886 TRAMADOL HCL Inactive 50 MG TABS with ES HCL 50 MG Tylenol TABS NECON 1/35 1 po NECON 35 NORETHINDRONE- Inactive (28) 1-35 daily (28) 1-35 ETH ESTRADIOL MG-MCG TABS MG-MCG TABS CIPRO 500 MG 1 tablet CIPRO 500 643012 CIPROFLOXACIN Inactive TAB by mouth MG TAB HCL twice daily ADIPEX-P 1/2 tab ADIPEX-P 129522 PHENTERMINE Inactive 37.5 MG CAPS po q am 37.5 MG HCL for CAPS weight loss ABILIFY 2 MG 1 po q hs ABILIFY 2 599224 ARIPIPRAZOLE Inactive TABS for major MG TABS depressio n HYDROCHLOROT 2 tabs HYDROCHLORO 385425 HYDROCHLOROTHI Inactive HIAZIDE 25 every THIAZIDE 25 AZIDE MG TABS morning MG TABS ABILIFY 5 MG one p.o. ABILIFY 5 742450 ARIPIPRAZOLE Inactive TABS q. day MG TABS CIPROFLOXACI Take one CIPROFLOXAC 396807 CIPROFLOXACIN Inactive N HCL 500 MG (1) IN HCL 500 HCL TABS tablet by MG TABS mouth twice a day PROMETHAZINE 1 tab by PROMETHAZIN 007622 PROMETHAZINE Inactive HCL 25 MG mouth E HCL 25 MG HCL TABS every 6 TABS hours as needed PHENTERMINE 1 po q am PHENTERMINE 469147 PHENTERMINE Inactive HCL 37.5 MG for wt. HCL 37.5 MG HCL TABS loss TABS AMARYL 1 MG 1 tab AMARYL 1 MG 937883 GLIMEPIRIDE Inactive TABS twice TABS daily METFORMIN 1 tablet METFORMIN 948995 METFORMIN HCL Inactive HCL 500 MG by mouth HCL 500 MG TABS twice TABS daily SPIRONOLACTO 1 tablet SPIRONOLACT 596019 SPIRONOLACTONE Inactive NE 25 MG TAB by mouth ONE 25 MG daily TAB POTASSIUM 2 capsule POTASSIUM POTASSIUM Inactive CHLORIDE CR by mouth CHLORIDE CR CHLORIDE 10 MEQ CPCR daily 10 MEQ CPCR LISINOPRIL 1 tablet LISINOPRIL 804228 LISINOPRIL Inactive 20 MG TABS by mouth 20 MG TABS daily DIFLUCAN 100 1 tablet DIFLUCAN 839004 FLUCONAZOLE Inactive MG TABS by mouth 100 MG TABS every other day for 2 doses DIFLUCAN 100 1 tablet DIFLUCAN 563002 FLUCONAZOLE Inactive MG TAB by mouth 100 MG TAB daily x 3 days PREDNISONE 2 tablets PREDNISONE 929488 PREDNISONE Inactive 20 MG TAB today, 20 MG TAB then 1 tablet days 2-4 VYVANSE 20 1 tablet VYVANSE 20 LISDEXAMFETAMI Inactive MG ORAL CAPS daily for MG ORAL NE DIMESYLATE binge CAPS eating disorder TRAMADOL HCL 1/2 po TRAMADOL 141265 TRAMADOL HCL Inactive 50 MG TABS tid with HCL 50 MG ES TABS Tylenol prn pain JANUVIA 100 1 tablet JANUVIA 100 SITAGLIPTIN Inactive MG TABS by mouth MG TABS PHOSPHATE daily AMOXICILLIN 2 po BID AMOXICILLIN 461173 AMOXICILLIN Inactive 500 MG CAPS x 10 days 500 MG CAPS PREDNISONE 2 tabs PREDNISONE 657392 PREDNISONE Inactive 20 MG TAB daily for 20 MG TAB 3 days, 1 tab daily for 3 days, 1/2 tab daily for 2 days NITROFURANTO One NITROFURANT 8500184 NITROFURANTOIN Inactive IN MONOHYD capsule OIN MONOHYD MONOHYD MACRO MACRO 100 MG BID for MACRO 100 CAPS UTI MG CAPS PREDNISONE 2 pills PREDNISONE 630418 PREDNISONE Inactive 20 MG TAB daily x 4 20 MG TAB days AZITHROMYCIN 2 po qd x AZITHROMYCI 4376928 AZITHROMYCIN Inactive 250 MG TABS 1 day, [...] HGBA1C - Chemistry sodium, serum 140 mmol/L 852-145 2275/04/13 potassium, serum 3.9 mmol/L 3.5-5.2 chloride, serum [...] 198 10^3/MM^3 10*3/mm3 142-424 Lab Report: Chlamydia/GC APTIMA/92332 - Lab chlamydia DNA probe NOT DETECTED NOT DETECTED Lab Report: Chlamydia/GC APTIMA/83352 - Microbiology Neisseria gonorrhoeae DNA probe NOT DETECTED NOT DETECTED Lab Report: Comp. Metabolic Panel, Lipid Panel - Chemistry urea nitrogen, blood 12 mg/dL 7-18 carbon dioxide, venous blood 27.0 mmol/L 21.0-32.0 potassium, serum 4.6 mmol/L 3.5-5.2 chloride, serum 98 mmol/L 98-107 blood glucose 174 mg/dL 65-110 sodium, serum 136 mmol/L 253-385 2760/01/04 creatinine, serum 0.78 mg/dL 0.55-1.30 alanine aminotransferase (SGPT), serum 65 U/L 12-78 aspartate aminotransferase (SGOT), serum 34 U/L 15-37 calcium, serum 8.9 mg/dL 8.5-10.1 bilirubin, serum, total 0.40 mg/dL 0.00-1.00 cholesterol, serum 219 mg/dL 846-999 6815/01/04 triglyceride, serum, fasting 214 mg/dL 30-200 HDL cholesterol, serum 39 mg/dL 32-96 LDL cholesterol, serum 137 mg/dL 0-130 Lab Report: FSH AND LH/7137/Adult - Chemistry follicle stimulating hormone, serum 84.0 m[iU]/mL luteinizing hormone, serum 40.2 m[iU]/mL Lab Report: HGBA1C, CBC - Chemistry hemoglobin A1C, blood, as % of total hemoglobin 6.0 % 4.3-6.0 Lab Report: HGBA1C, CBC - Hematology platelet count 231 10^3/MM^3 10*3/mm3 792-835 6851/07/21 mean corpuscular volume, RBC 91 fL 80-97 mean corpuscular hemoglobin, RBC 31.0 pg 27.0-31.2 mean corpuscular hemoglobin 33.9 G/DL % 31.8-35.4 concentration, RBC red blood cell distribution width 14.6 % 11.6-14.8 hematocrit, blood 37.7 % 36.0-46.0 hemoglobin, blood 12.8 g/dL 12.0-16.0 erythrocyte (RBC) count 4.13 10^6/MM^3 10*6/mm3 4.04-5.48 leukocyte count, blood 7.2 10^3/MM^3 10*3/mm3 4.6-10.2 Lab Report: Thyroid Stimulating Hormone (L), Free Thyroxine (L) - Chemistry TSH 2.84 m[iU]/mL 0.36-3.74 thyroxine, serum, free 0.88 ng/dL 0.76-1.46 Lab Report: Thyroid Stimulating Hormone (L), MICROALBUMIN, Basic Metabol ... - Chemistry carbon dioxide, venous blood 33.4 mmol/L 21.0-32.0 TSH 2.24 m[iU]/mL 0.36-3.74 blood glucose 156 mg/dL 65-110 calcium, serum 8.4 mg/dL 8.5-10.1 urea nitrogen, blood 14 mg/dL 7-18 creatinine, serum 1.00 mg/dL 0.60-1.30 chloride, serum 102 mmol/L 98-107 albumin/creatinine ratio, urine < 30 mg/g mg/g{creat} 0-29 sodium, serum 140 mmol/L 379-305 0470/07/21 potassium, serum 3.9 mmol/L 3.5-5.2 Lab Report: Thyroid Stimulating Hormone (L), MICROALBUMIN, Basic Metabol ... - Lab microalbumin, urine 80 0-19 Lab Report: Wet Prep, CBC - Hematology erythrocyte (RBC) count 4.73 10^6/MM^3 10*6/mm3 4.04-5.48 hemoglobin, blood 14.5 g/dL 12.0-16.0 hematocrit, blood 43.1 % 36.0-46.0 mean corpuscular volume, RBC 91 fL 80-97 mean corpuscular hemoglobin, RBC 30.6 pg 27.0-31.2 leukocyte count, blood 6.7 10^3/MM^3 10*3/mm3 4.6-10.2 mean corpuscular hemoglobin 33.6 G/DL % 31.8-35.4 concentration, RBC red blood cell distribution width 14.6 % 11.6-14.8 platelet count 234 10^3/MM^3 10*3/mm3 142-424 Office Visit: Diabetes Visit - Chemistry cholesterol, target level 200 mg/dL triglyceride, target level 200 mg/dL HDL cholesterol, serum, target level 35 mg/dL LDL target level 100 mg/dL home glucose monitor utilized Yes Encounters Code Encounter Date Provider Facility CPT-31202 Level 3 Est. Patient Faby Marino [facility] 14:40:56 CDT [facility] CPT-17321 Level 4 Est. Patient Arnold Berrios [facility] 17:29:53 LOCATION MANAGER [facility] CPT-54958 Level 4 Est[facility] CPT-20327 Level 3 Est. [facility] CPT-53883 Level 3 Est. Patient Joseph Trivedi DO [facility] 14:42:12 CDT [facility] CPT-74590 Level 3 Est. Patient Joseph W [facility] 22:18:20 CDT -[facility] CPT-58536 Level 3 Est. Patient Joseph Pineda [facility] 16:46:04 CDT -[facility] CPT-27698 Level 3 Est. Patient Joseph Pineda [facility] 15:39:53 CDT -[facility] CPT-89184 Level 3 Est. Patient Maite Sanchez MD PhD [facility] 13:33:34 CDT -[facility] CPT-69651 Level 3 Est. Patient Joseph Pineda [facility] 11:37:08 CDT -[facility] CPT-45075 Level 3 Est. Patient Joseph Edwin [facility] 17:13:29 LOCATION MANAGER -[facility] CPT-11614 Level 3 Est. Patient Joseph Edwin [facility] 18:42:44 CDT CPT-03001 Level 3 Est. Patient Cimarron Edwin [facility] 16:25:39 CDT CPT-40199 Level 3 Est. Patient Casey Brower [facility] 09:52:45 CDT -[facility] CPT-15942 Level 3 Est. Patient Joseph Edwin [facility] 11:03:29 LOCATION MANAGER -[facility] CPT-34566 Level 3 Est. Patient Joseph Edwin [facility] 11:03:08 LOCATION MANAGER -[facility] CPT-04934 Level 3 Est. Patient Joseph Edwin [facility] 14:33:31 CDT -[facility] CPT-67915 Level 3 Est. Patient [facility] 17:05:02 LOCATION MANAGER -[facility] CPT-62518 Level 3 Est. Patient [facility] 17:48:06 LOCATION MANAGER -[facility] CPT-67964 Level 3 Est. Patient [place] [facility] 14:59:22 LOCATION MANAGER -[facility] CPT-73894 Level 3 Est. Patient [facility] - 21:45:56 LOCATION MANAGER [place] [facility] CPT-69097 Level 3 Est. Patient Joseph Pineda [facility] 21:29:50 CDT -[facility] CPT-74353 Level 3 Est. Patient Joseph Trivedi [facility] 12:41:09 CDT -[facility] Procedures Code Procedure Name Date Entry Date Standard Description CPT-26419 Chest 2V Frontal and Lat 14:47:43 CDT CPT-JTINJ Asp/Joint Injection 09:51:53 LOCATION MANAGER CPT-OV Office Visit 17:39:05 CDT CPT-OV Office Visit 15:19:50 CDT CPT-31244 Sono transvag pelvis non OB uterus ovaries cervix 18:04:34 CDT CPT-85594 Venipuncture Draw Fee 08:55:49 LOCATION MANAGER
--- OUTSIDE RECORDS SUMMARY | 2016-11-20 14:13 | External Medical Summary | Clinical Summary ---
:1965 Author Organization [facility] Address [address] [place] [address] Phone Allergies, Adverse Reactions, Alerts Allergy Name Reaction Description Start Date Severity Status Provider NKDA Critical No Longer Indigo Sexton [employer] Active NKDA Critical Inactive Adrianna Elder Conditions [...] DO essential hypertension FATIGUE 780.79 Active Joseph Pinead Other malaise 05/24 05/24 Farooq DO and fatigue SLEEP APNEA, 327.23 Active Joseph Pineda Obstructive OBSTRUCTIVE, 06/27 06/27 Farooq DO sleep apnea MILD (adult) (pediatric) OVERWEIGHT 278.02 Active Joseph Pnieda Overweight 06/28 06/28 Farooq DO OTH GENERAL [...] 464.00 Resolved [facility] of obstruction Binge eating 307.51 Active Joseph Pineda Bulimia nervosa disorder 08/15 08/15 Farooq DO Routine V72.31 Active Jillina Routine gynecological 12/14 12/14 [place]ell gynecological examination [employer] examination Postmenopausal 627.1 Active Jillina Postmenopausal bleeding 12/14 12/14 [place] bleeding [employer] Screening for V76.51 Active Ismael Coyne Screening for malignant 12/26 12/26 Amandeep malignant neoplasms of MD neoplasms of colon colon Insomnia, 307.42 Active Indigo 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 [employer] disorder of initiating or maintaining sleep Establish care V68.89 Active Indigo Encounters for or get 01/16 01/18 Yokum [employer] other specified acquainted administrative visit purpose Weakness, left 342.90 Active Indigo Hemiplegia, side of body 06/20 06/20 Yokum [employer] unspecified, affecting unspecified side ABNORMAL VAGINAL ICD-626.9 [...] Patient Date Date Name Instruction TROKENDI XR 1 tab TOPIRAMATE 21553180953 Active Indigo Active 100 MG ORAL daily Yokum [id number] [employer] ASPIRIN 81 MG 1 po qd ASPIRIN 28504087571 Active Indigo Active ORAL TABS Yokum [employer]ER NITROFURANTOIN One 2 NITROFURANTOIN 08449866134 No Indigo Active MONOHYD MACRO capsule 0 MONOHYD MACRO Longer Yokum 100 MG CAPS BID for 1 Active [employer]ER UTI 6 / 0 3 JANUVIA 100 MG 1 tablet SITAGLIPTIN 33604843592 Active Indigo Active TABS by mouth PHOSPHATE Yokum daily [employer]ER METFORMIN HCL 2 tablets METFORMIN HCL 88323175052 Active Indigo Active 500 MG TB24 by mouth Yokum twice [employer]ER daily TRAMADOL HCL 1/2 po tid 2 TRAMADOL HCL 80148786052 No Jillina Active 50 MG TABS with ES 0 Longer [place] Tylenol 1 Active [employer] prn pain 5 / 0 2 VYVANSE 20 MG 1 tablet 2 LISDEXAMFETAMI 32968246649 No Jillina Active ORAL CAPS daily for 0 NE DIMESYLATE Longer [place] binge 1 Active [employer] eating 5 disorder / 0 8 / 2 LASIX 20 MG 2 tablet FUROSEMIDE 85661809225 Active Joseph W Active TAB by mouth Farooq DO daily CELEBREX 200 1 tablet CELECOXIB 45914666345 Active Joseph W Active MG CAPS by mouth Farooq DO daily with meals PREDNISONE 20 2 tablets 2 PREDNISONE 46715606774 No Joseph W Active MG TAB today, 0 Longer Farooq DO then 1 1 Active tablet 5 days 2-4 / 0 4 / 3 DIFLUCAN 100 1 tablet 2 FLUCONAZOLE 76801980785 No Joseph W Active MG TAB by mouth 0 Longer Farooq DO daily x 3 1 Active days 5 / 0 4 / 3 AMARYL 1 MG 1 tablet GLIMEPIRIDE 68144166428 Active Joseph W Active ORAL TABS orally Farooq DO twice daily DIFLUCAN 100 1 tablet 2 FLUCONAZOLE 23680946246 No Joseph W Active MG TABS by mouth 0 Longer Farooq DO every 1 Active other day 5 for 2 / doses 0 1 / 2 3 ZOFRAN 4 MG 1 po q6hr ONDANSETRON 68079414821 Active Joseph W Active TABS PRN Nausea HCL Farooq DO PREDNISONE 20 2 tabs 2 PREDNISONE 03061766094 No Joseph W Active MG TAB daily for 0 Longer Farooq DO 3 days, 1 1 Active tab daily 4 for 3 / days, 1/2 1 tab daily 0 for 2 days / 2 5 AMOXICILLIN 2 po BID x 2 AMOXICILLIN 87462205845 No Maite C Active 500 MG CAPS 10 days 0 Longer Madril 1 Active PhD 0 / 2 0 LISINOPRIL 20 1 tablet 2 LISINOPRIL 63452815788 No Maite C Active MG TABS by mouth 0 Longer Madril daily 1 Active PhD 0 / 1 0 POTASSIUM 2 capsule 2 POTASSIUM 81661622782 No Joseph Pineda Active CHLORIDE CR 10 by mouth 0 CHLORIDE Longer Farooq DO MEQ CPCR daily 1 Active 4 / 0 8 / 2 9 SPIRONOLACTONE 1 tablet 2 SPIRONOLACTONE 75438136007 No Joseph Pineda Active 25 MG TAB by mouth 0 Longer Farooq DO daily 1 Active 4 / 0 8 / 2 9 METFORMIN HCL 1 tablet 2 METFORMIN HCL 75424889713 No Joseph Pineda Active 500 MG TABS by mouth 0 Longer Farooq DO twice 1 Active daily 4 / 0 8 / 2 9 AMARYL 1 MG 1 tab 2 GLIMEPIRIDE 40358161655 No Joseph W Active TABS twice 0 Longer Farooq DO daily 1 Active 4 / 0 8 / 2 9 PHENTERMINE 1 po q am 2 PHENTERMINE 77073422475 No Joseph W Active HCL 37.5 MG for wt. 0 HCL Longer Farooq DO TABS loss 1 Active 3 / 1 2 / 2 3 PROMETHAZINE 1 tab by 2 PROMETHAZINE 05160188718 No Joseph W Active HCL 25 MG TABS mouth 0 HCL Longer Farooq DO every 6 1 Active hours as 3 needed / 0 9 / 0 9 CIPROFLOXACIN Take one 2 CIPROFLOXACIN 27341300268 No Joseph W Active HCL 500 MG (1) tablet 0 HCL Longer Farooq DO TABS by mouth 1 Active twice a 3 day / 0 9 / 0 9 ABILIFY 5 MG one p.o. 2 ARIPIPRAZOLE 44867149522 No Joseph W Active TABS q. day 0 Longer Farooq DO 1 Active 3 / 0 9 / 0 9 HYDROCHLOROTHI 2 tabs 2 HYDROCHLOROTHI 19251837001 No Joseph W Active AZIDE 25 MG every 0 AZIDE Longer Farooq DO TABS morning 1 Active 3 / 0 6 / 2 7 ABILIFY 2 MG 1 po q hs 2 ARIPIPRAZOLE 90452146098 No Joseph W Active TABS for major 0 Longer Farooq DO depression 1 Active 3 / 0 5 / 0 7 ADIPEX-P 37.5 1/2 tab po 2 PHENTERMINE 86637672615 No Casey Active MG CAPS q am for 0 HCL Longer Leonarda weight 1 Active PA loss 3 / 0 5 / 0 1 CIPRO 500 MG 1 tablet 2 CIPROFLOXACIN 83070407516 No Casey Active TAB by mouth 0 HCL Longer Leonarda twice 1 Active PA daily 3 / 0 5 / 0 1 NECON 1/35 1 po daily 2 NORETHINDRONE- 00421456445 No Casey Active (28) 1-35 0 ETH ESTRADIOL Longer [place] MG-MCG TABS 1 Active PA 3 / 0 5 / 0 1 TRAMADOL HCL 1 po tid 2 TRAMADOL HCL 18381564281 No Casey Active 50 MG TABS with ES 0 Longer Leonarda Tylenol 1 Active PA 3 / 0 5 / 0 1 FLUCONAZOLE one p.o. 2 FLUCONAZOLE 80378287298 No Casey Active 100 MG TABS q. day 2 0 Longer [place] days 1 Active PA 3 / 0 5 / 0 1 POTASSIUM 1 capsule 2 POTASSIUM 82217828274 No Casey Active CHLORIDE CR 10 by mouth 0 CHLORIDE Longer [place] MEQ CPCR daily 1 Active PA 3 / 0 5 / 0 1 IMIPRAMINE HCL Take 6 IMIPRAMINE HCL 52463934770 Active Joseph W Active 50 MG TABS tablets by Farooq DO mouth at bedtime DIFLUCAN 100 1 tablet 2 FLUCONAZOLE 20469139973 No Joseph W Active MG TAB by mouth 0 Longer Farooq DO daily 1 Active 2 / 0 2 / 2 4 METOPROLOL 1/2 tab po METOPROLOL 40000010671 Active Joseph W Active TARTRATE 25 MG bid TARTRATE Farooq DO TABS VERAPAMIL HCL 2 po bid VERAPAMIL HCL 83655877687 Active Joseph W Active CR 120 MG TAB Farooq DO CR PERMETHRIN 5 % apply neck 2 PERMETHRIN 97752111864 No Joseph W Active CREA to toes 0 Longer Farooq DO tonight 1 Active and then 2 rinse off / in 0 morning. 1 repeat at / 7 days 2 0 SEROQUEL XR 50 one p.o. 2 QUETIAPINE 50976497234 No Joseph W Active MG [id number] q. evening 0 FUMARATE Longer Farooq DO 1 Active 2 / 0 1 / 2 0 TRAMADOL HCL 1-2 2 TRAMADOL HCL 49663373430 No Joseph W Active 50 MG TABS tablets 0 Longer Farooq DO every 6-8 1 Active hours as 2 needed for / pain 0 1 / 2 0 ALPRAZOLAM 3 one p.o. ALPRAZOLAM 65125131241 Active Indigo Active MG [id number] q.h.s. Yokum [employer]ER ALPRAZOLAM XR Take 1 2 ALPRAZOLAM 31036462829 No Joseph W Active [id number] tablet by 0 [id number] Longer Farooq DO mouth at 1 Active bedtime 1 / 2 9 DIFLUCAN 100 1 tablet 2 FLUCONAZOLE 59990848993 No Joseph W Active MG TAB by mouth 0 Longer Farooq DO daily 1 Active 0 / 0 6 AMBIEN 10 MG 1 tab by ZOLPIDEM 75107210869 Active Joseph W Active TAB mouth at TARTRATE Farooq DO bedtime as needed for sleep DIFLUCAN 100 1 tablet DIFLUCAN 126965 FLUCONAZOLE Inactive MG TAB by mouth 100 MG TAB daily ALPRAZOLAM Take 1 ALPRAZOLAM ALPRAZOLAM Inactive XR [id number] tablet by XR [id number] mouth at [id number] bedtime TRAMADOL HCL 1-2 TRAMADOL 456773 TRAMADOL HCL Inactive 50 MG TABS tablets HCL 50 MG every 6-8 TABS hours as needed for pain SEROQUEL XR one p.o. SEROQUEL XR QUETIAPINE Inactive 50 MG q. 50 MG FUMARATE [id number] evening [id number] PERMETHRIN 5 apply PERMETHRIN 508254 PERMETHRIN Inactive % CREA neck to 5 % CREA toes tonight and then rinse off in morning. repeat at 7 days DIFLUCAN 100 1 tablet DIFLUCAN 214962 FLUCONAZOLE Inactive MG TAB by mouth 100 MG TAB daily POTASSIUM 1 capsule POTASSIUM POTASSIUM Inactive CHLORIDE CR by mouth CHLORIDE CR CHLORIDE 10 MEQ CPCR daily 10 MEQ CPCR FLUCONAZOLE one p.o. FLUCONAZOLE 19760111 FLUCONAZOLE Inactive 100 MG TABS q. day 2 100 MG TABS days TRAMADOL HCL 1 po tid TRAMADOL 573106 TRAMADOL HCL Inactive 50 MG TABS with ES HCL 50 MG Tylenol TABS NECON 35 1 po NECON NORETHINDRONE- Inactive (28) 1-35 daily (28) 1-35 ETH ESTRADIOL MG-MCG TABS MG-MCG TABS CIPRO 500 MG 1 tablet CIPRO 500 363418 CIPROFLOXACIN Inactive TAB by mouth MG TAB HCL twice daily ADIPEX-P 1/2 tab ADIPEX-P 816806 PHENTERMINE Inactive 37.5 MG CAPS po q am 37.5 MG HCL for CAPS weight loss ABILIFY 2 MG 1 po q hs ABILIFY 2 844892 ARIPIPRAZOLE Inactive TABS for major MG TABS depressio n HYDROCHLOROT 2 tabs HYDROCHLORO 321735 HYDROCHLOROTHI Inactive HIAZIDE 25 every THIAZIDE 25 AZIDE MG TABS morning MG TABS ABILIFY 5 MG one p.o. ABILIFY 5 135615 ARIPIPRAZOLE Inactive TABS q. day MG TABS CIPROFLOXACI Take one CIPROFLOXAC 096130 CIPROFLOXACIN Inactive N HCL 500 MG (1) IN HCL 500 HCL TABS tablet by MG TABS mouth twice a day PROMETHAZINE 1 tab by PROMETHAZIN 126948 PROMETHAZINE Inactive HCL 25 MG mouth E HCL 25 MG HCL TABS every 6 TABS hours as needed PHENTERMINE 1 po q am PHENTERMINE 864240 PHENTERMINE Inactive HCL 37.5 MG for wt. HCL 37.5 MG HCL TABS loss TABS AMARYL 1 MG 1 tab AMARYL 1 MG 983731 GLIMEPIRIDE Inactive TABS twice TABS daily METFORMIN 1 tablet METFORMIN 268901 METFORMIN HCL Inactive HCL 500 MG by mouth HCL 500 MG TABS twice TABS daily SPIRONOLACTO 1 tablet SPIRONOLACT 484964 SPIRONOLACTONE Inactive NE 25 MG TAB by mouth ONE 25 MG daily TAB POTASSIUM 2 capsule POTASSIUM POTASSIUM Inactive CHLORIDE CR by mouth CHLORIDE CR CHLORIDE 10 MEQ CPCR daily 10 MEQ CPCR LISINOPRIL 1 tablet LISINOPRIL 939205 LISINOPRIL Inactive 20 MG TABS by mouth 20 MG TABS daily DIFLUCAN 100 1 tablet DIFLUCAN 162119 FLUCONAZOLE Inactive MG TABS by mouth 100 MG TABS every other day for 2 doses DIFLUCAN 100 1 tablet DIFLUCAN 433832 FLUCONAZOLE Inactive MG TAB by mouth 100 MG TAB daily x 3 days PREDNISONE 2 tablets PREDNISONE 870023 PREDNISONE Inactive 20 MG TAB today, 20 MG TAB then 1 tablet days 2-4 VYVANSE 20 1 tablet VYVANSE 20 LISDEXAMFETAMI Inactive MG ORAL CAPS daily for MG ORAL NE DIMESYLATE binge CAPS eating disorder TRAMADOL HCL 1/2 po TRAMADOL 589081 TRAMADOL HCL Inactive 50 MG TABS tid with HCL 50 MG ES TABS Tylenol prn pain AMOXICILLIN 2 po BID AMOXICILLIN 748272 AMOXICILLIN Inactive 500 MG CAPS x 10 days 500 MG CAPS PREDNISONE 2 tabs PREDNISONE 377806 PREDNISONE Inactive 20 MG TAB daily for 20 MG TAB 3 days, 1 tab daily for 3 days, 1/2 tab daily for 2 days NITROFURANTO One NITROFURANT 1468588 NITROFURANTOIN Inactive IN MONOHYD capsule OIN MONOHYD [...] HGBA1C - Chemistry sodium, serum 140 mmol/L 371-933 8133/04/13 potassium, serum 3.9 mmol/L 3.5-5.2 chloride, serum [...] 198 10^3/MM^3 10*3/mm3 142-424 Lab Report: Chlamydia/GC APTIMA/[id number] - Lab chlamydia DNA probe NOT DETECTED NOT DETECTED Lab Report: Chlamydia/GC APTIMA/42155 - Microbiology Neisseria gonorrhoeae DNA probe NOT DETECTED NOT DETECTED Lab Report: Comp. Metabolic Panel, Lipid Panel - Chemistry sodium, serum 136 mmol/L 890-708 3713/01/04 carbon dioxide, venous blood 27.0 mmol/L 21.0-32.0 potassium, serum 4.6 mmol/L 3.5-5.2 chloride, serum 98 mmol/L 98-107 blood glucose 174 mg/dL 65-110 urea nitrogen, blood 12 mg/dL 7-18 creatinine, serum 0.78 mg/dL 0.55-1.30 alanine aminotransferase (SGPT), serum 65 U/L 12-78 aspartate aminotransferase (SGOT), serum 34 U/L 15-37 calcium, serum 8.9 mg/dL 8.5-10.1 bilirubin, serum, total 0.40 mg/dL 0.00-1.00 cholesterol, serum 219 mg/dL 812-030 8483/01/04 triglyceride, serum, fasting 214 mg/dL 30-200 HDL [...] mg/g mg/g{creat} 0-29 sodium, serum 140 mmol/L 896-391 7319/07/21 potassium, serum 3.9 mmol/L 3.5-5.2 chloride, serum [...] 142-424 Encounters Code Encounter Date Provider Facility CPT-48368 Level 3 Est. Patient Indigo Sexton ALEJANDRO [facility] 18:59:38 CDT CPT-66091 Level 3 Est. Patient [facility] 14:42:12 CDT -[facility] CPT-63846 Level 3 Est. Patient [facility] 22:18:20 CDT -[facility] CPT-85344 Level 3 Est. Patient [facility] 16:46:04 CDT -[facility] CPT-48141 Level 3 Est. Patient [facility] 15:39:53 CDT -[facility]HC CPT-16246 Level 3 Est. Patient Maite Sanchez MD [facility] 13:33:34 CDT -RHC CPT-45418 Level 3 Est. Patient [facility] 11:37:08 CDT -[facility] CPT-89849 Level 3 Est. 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 Patient [facility] 18:42:44 CDT CPT-56088 Level 3 Est. Patient [facility] 16:25:39 CDT CPT-92638 Level 3 Est. Patient Casey ARCHIBALD [facility] 09:52:45 CDT -RHC CPT-16092 Level 3 Est. Patient [facility] 11:03:29 B[employer] STORE ASSOCIATE -[facility]HC CPT-94844 Level 3 Est. Patient [facility] 11:03:08 BOOK STORE ASSOCIATE -[facility]HC CPT-21424 Level 3 Est. Patient [facility] 14:33:31 CDT -RHC CPT-84793 Level 3 Est. 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 Patient Joseph Pineda [facility] 17:48:06 [facility] Level 3 Est. Patient Joseph Pineda [facility] 14:59:22 BOOK STORE ASSOCIATE -C CPT-55241 Level 3 Est. Patient Joseph Pineda [facility] - 21:45:56 BOOK STORE ASSOCIATE [place] [facility] CPT-48816 Level 3 Est. Patient Joseph Pineda [facility] 21:29:50 CDT -RH CPT-08993 Level 3 Est. Patient Joseph Pineda [facility] 12:41:09 [facility] Procedures Code Procedure Name Date Entry Date Standard Description CPT-OV Office Visit 17:39:05 CDT CPT-OV Office Visit 15:19:50 T CPT-06198 Sono transvag pelvis non OB uterus ovaries cervix 18:04:34 CDT CPT-47137 Venipuncture Draw Fee 08:55:49 B[employer] STORE ASSOCIATE
--- OUTSIDE RECORDS SUMMARY | 2016-11-20 14:13 | External Medical Summary | Clinical Summary ---
:1965 Author Organization [facility] Address [address] [place] [address] Phone Allergies, Adverse Reactions, Alerts Allergy Name Reaction Description Start Date Severity Status Provider NKDA Critical No Longer Indiog Sexton [employer] Active NKDA Critical Inactive Adrianna Elder [...] 464.00 Resolved [facility] without mention of obstruction Binge eating 307.51 Active Joseph Pineda Bulimia nervosa disorder 08/15 08/15 Farooq DO Routine V72.31 Active Jillina Routine gynecological 12/14 12/14 Frazell gynecological examination [employer] examination Postmenopausal 627.1 Active Jillina Postmenopausal bleeding 12/14 12/14 Frazell bleeding [employer] Screening for V76.51 Active Ismael Coyne Screening for malignant 12/26 12/26 Amandeep malignant neoplasms of MD neoplasms of colon colon Insomnia, 307.42 Active Indigo 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 [employer] disorder of initiating or maintaining sleep Establish care V68.89 Active Indigo Encounters for or get 01/16 01/18 Yokum [employer] other specified acquainted administrative visit purpose Weakness, left 342.90 Active Indigo Hemiplegia, side of body 06/20 06/20 Yokum [employer] unspecified, affecting unspecified side ABNORMAL VAGINAL ICD-626.9 [...] Name Instruction TROKENDI XR 1 tab TOPIRAMATE 70201612037 Active Indigo Active 100 MG ORAL daily Yokum [id number] [employer] ASPIRIN 81 MG 1 po qd ASPIRIN 36497025863 Active Indigo Active ORAL TABS Yokum [employer] NITROFURANTOIN One 2 NITROFURANTOIN 31494559703 No Indigo Active MONOHYD MACRO capsule 0 MONOHYD MACRO Longer Yokum 100 MG CAPS BID for 1 Active [employer] UTI 6 / 0 3 JANUVIA 100 MG 1 tablet SITAGLIPTIN 39576219395 Active Indigo Active TABS by mouth PHOSPHATE Yokum daily [employer] METFORMIN HCL 2 tablets METFORMIN HCL 99505896785 Active Indigo Active 500 MG TB24 by mouth Yokum twice [employer] daily TRAMADOL HCL 1/2 po tid 2 TRAMADOL HCL 78266793868 No Jillina Active 50 MG TABS with ES 0 Longer [place] Tylenol 1 Active [employer] prn pain 5 / 0 2 VYVANSE 20 MG 1 tablet 2 LISDEXAMFETAMI 15095001532 No Jillina Active ORAL CAPS daily for 0 NE DIMESYLATE Longer [place]ell binge 1 Active [employer] eating 5 disorder / 0 8 / 2 LASIX 20 MG 2 tablet FUROSEMIDE 27858545284 Active Joseph W Active TAB by mouth Farooq DO daily CELEBREX 200 1 tablet CELECOXIB 64353256703 Active Joseph W Active MG CAPS by mouth Farooq DO daily with meals PREDNISONE 20 2 tablets 2 PREDNISONE 24142438972 No Joseph W Active MG TAB today, 0 Longer Farooq DO then 1 1 Active tablet 5 days 2-4 / 0 4 / 3 DIFLUCAN 100 1 tablet 2 FLUCONAZOLE 41377014963 No Joseph W Active MG TAB by mouth 0 Longer Farooq DO daily x 3 1 Active days 5 / 0 4 / 3 AMARYL 1 MG 1 tablet GLIMEPIRIDE 21096773921 Active Joseph W Active ORAL TABS orally Farooq DO twice daily DIFLUCAN 100 1 tablet 2 FLUCONAZOLE 41342937681 No Joseph W Active MG TABS by mouth 0 Longer Farooq DO every 1 Active other day 5 for 2 / doses 0 1 / 2 3 ZOFRAN 4 MG 1 po q6hr ONDANSETRON 91437583260 Active Joseph W Active TABS PRN Nausea HCL Farooq DO PREDNISONE 20 2 tabs 2 PREDNISONE 98200857955 No Joseph W Active MG TAB daily for 0 Longer Farooq DO 3 days, 1 1 Active tab daily 4 for 3 / days, 1/2 1 tab daily 0 for 2 days / 2 5 AMOXICILLIN 2 po BID x 2 AMOXICILLIN 72254041269 No Maite C Active 500 MG CAPS 10 days 0 Longer Madril 1 Active PhD 0 / 2 0 LISINOPRIL 20 1 tablet 2 LISINOPRIL 14201490969 No Maite C Active MG TABS by mouth 0 Longer Madril daily 1 Active PhD 0 / 1 0 POTASSIUM 2 capsule 2 POTASSIUM 28386880482 No Joseph Pineda Active CHLORIDE CR 10 by mouth 0 CHLORIDE Longer Farooq DO MEQ CPCR daily 1 Active 4 / 0 8 / 2 9 SPIRONOLACTONE 1 tablet 2 SPIRONOLACTONE 40530741179 No Joseph Pineda Active 25 MG TAB by mouth 0 Longer Farooq DO daily 1 Active 4 / 0 8 / 2 9 METFORMIN HCL 1 tablet 2 METFORMIN HCL 64957111682 No Joseph Pineda Active 500 MG TABS by mouth 0 Longer Farooq DO twice 1 Active daily 4 / 0 8 / 2 9 AMARYL 1 MG 1 tab 2 GLIMEPIRIDE 34613008924 No Joseph W Active TABS twice 0 Longer Farooq DO daily 1 Active 4 / 0 8 / 2 9 PHENTERMINE 1 po q am 2 PHENTERMINE 76708432222 No Joseph W Active HCL 37.5 MG for wt. 0 HCL Longer Farooq DO TABS loss 1 Active 3 / 1 2 / 2 3 PROMETHAZINE 1 tab by 2 PROMETHAZINE 66568856079 No Joseph W Active HCL 25 MG TABS mouth 0 HCL Longer Farooq DO every 6 1 Active hours as 3 needed / 0 9 / 0 9 CIPROFLOXACIN Take one 2 CIPROFLOXACIN 38652053014 No Joseph W Active HCL 500 MG (1) tablet 0 HCL Longer Farooq DO TABS by mouth 1 Active twice a 3 day / 0 9 / 0 9 ABILIFY 5 MG one p.o. 2 ARIPIPRAZOLE 64248825126 No Joseph W Active TABS q. day 0 Longer Farooq DO 1 Active 3 / 0 9 / 0 9 HYDROCHLOROTHI 2 tabs 2 HYDROCHLOROTHI 84076425928 No Joseph W Active AZIDE 25 MG every 0 AZIDE Longer Farooq DO TABS morning 1 Active 3 / 0 6 / 2 7 ABILIFY 2 MG 1 po q hs 2 ARIPIPRAZOLE 22483318980 No Joseph W Active TABS for major 0 Longer Farooq DO depression 1 Active 3 / 0 5 / 0 7 ADIPEX-P 37.5 1/2 tab po 2 PHENTERMINE 68846667866 No Casey Active MG CAPS q am for 0 HCL Longer Leonarda weight 1 Active PA loss 3 / 0 5 / 0 1 CIPRO 500 MG 1 tablet 2 CIPROFLOXACIN 45997447906 No Casey Active TAB by mouth 0 HCL Longer Leonarda twice 1 Active PA daily 3 / 0 5 / 0 1 NECON 1/35 1 po daily 2 NORETHINDRONE- 98408598129 No Casey Active (28) 1-35 0 ETH ESTRADIOL Longer Placentia MG-MCG TABS 1 Active PA 3 / 0 5 / 0 1 TRAMADOL HCL 1 po tid 2 TRAMADOL HCL 08851190593 No Casey Active 50 MG TABS with ES 0 Longer Leonarda Tylenol 1 Active PA 3 / 0 5 / 0 1 FLUCONAZOLE one p.o. 2 FLUCONAZOLE 00442985457 No Casey Active 100 MG TABS q. day 2 0 Longer Placentia days 1 Active PA 3 / 0 5 / 0 1 POTASSIUM 1 capsule 2 POTASSIUM 88873765221 No Casey Active CHLORIDE CR 10 by mouth 0 CHLORIDE Longer Placentia MEQ CPCR daily 1 Active PA 3 / 0 5 / 0 1 IMIPRAMINE HCL Take 6 IMIPRAMINE HCL 56074006899 Active Joseph W Active 50 MG TABS tablets by Farooq DO mouth at bedtime DIFLUCAN 100 1 tablet 2 FLUCONAZOLE 81138294125 No Joseph W Active MG TAB by mouth 0 Longer Farooq DO daily 1 Active 2 / 0 2 / 2 4 METOPROLOL 1/2 tab po METOPROLOL 10487174493 Active Joseph W Active TARTRATE 25 MG bid TARTRATE Farooq DO TABS VERAPAMIL HCL 2 po bid VERAPAMIL HCL 83726482858 Active Joseph W Active CR 120 MG TAB Farooq DO CR PERMETHRIN 5 % apply neck 2 PERMETHRIN 38995129812 No Joseph W Active CREA to toes 0 Longer Farooq DO tonight 1 Active and then 2 rinse off / in 0 morning. 1 repeat at / 7 days 2 0 SEROQUEL XR 50 one p.o. 2 QUETIAPINE 06908644282 No Joseph W Active MG [id number] q. evening 0 FUMARATE Longer Farooq DO 1 Active 2 / 0 1 / 2 0 TRAMADOL HCL 1-2 2 TRAMADOL HCL 18233237418 No Joseph W Active 50 MG TABS tablets 0 Longer Farooq DO every 6-8 1 Active hours as 2 needed for / pain 0 1 / 2 0 ALPRAZOLAM 3 one p.o. ALPRAZOLAM 56590719712 Active Indigo Active MG [id number] q.h.s. Yokum [employer] ALPRAZOLAM XR Take 1 2 ALPRAZOLAM 24253634702 No Joseph W Active [id number] tablet by 0 [id number] Longer Farooq DO mouth at 1 Active bedtime 1 / 2 9 DIFLUCAN 100 1 tablet 2 FLUCONAZOLE 26359835768 No Joseph W Active MG TAB by mouth 0 Longer Farooq DO daily 1 Active 0 / 0 6 AMBIEN 10 MG 1 tab by ZOLPIDEM 05416325865 Active Joseph W Active TAB mouth at TARTRATE Farooq DO bedtime as needed for sleep DIFLUCAN 100 1 tablet DIFLUCAN 074367 FLUCONAZOLE Inactive MG TAB by mouth 100 MG TAB daily ALPRAZOLAM Take 1 ALPRAZOLAM ALPRAZOLAM Inactive XR [id number] tablet by XR [id number] mouth at [id number] bedtime TRAMADOL HCL 1-2 TRAMADOL 643301 TRAMADOL HCL Inactive 50 MG TABS tablets HCL 50 MG every 6-8 TABS hours as needed for pain SEROQUEL XR one p.o. SEROQUEL XR QUETIAPINE Inactive 50 MG q. 50 MG FUMARATE [id number] evening [id number] PERMETHRIN 5 apply PERMETHRIN 455925 PERMETHRIN Inactive % CREA neck to 5 % CREA toes tonight and then rinse off in morning. repeat at 7 days DIFLUCAN 100 1 tablet DIFLUCAN 987065 FLUCONAZOLE Inactive MG TAB by mouth 100 MG TAB daily POTASSIUM 1 capsule POTASSIUM POTASSIUM Inactive CHLORIDE CR by mouth CHLORIDE CR CHLORIDE 10 MEQ CPCR daily 10 MEQ CPCR FLUCONAZOLE one p.o. FLUCONAZOLE 19760111 FLUCONAZOLE Inactive 100 MG TABS q. day 2 100 MG TABS days TRAMADOL HCL 1 po tid TRAMADOL 307769 TRAMADOL HCL Inactive 50 MG TABS with ES HCL 50 MG Tylenol TABS NECON 35 1 po NECON NORETHINDRONE- Inactive (28) 1-35 daily (28) 1-35 ETH ESTRADIOL MG-MCG TABS MG-MCG TABS CIPRO 500 MG 1 tablet CIPRO 500 858070 CIPROFLOXACIN Inactive TAB by mouth MG TAB HCL twice daily ADIPEX-P 1/2 tab ADIPEX-P 457388 PHENTERMINE Inactive 37.5 MG CAPS po q am 37.5 MG HCL for CAPS weight loss ABILIFY 2 MG 1 po q hs ABILIFY 2 160563 ARIPIPRAZOLE Inactive TABS for major MG TABS depressio n HYDROCHLOROT 2 tabs HYDROCHLORO 676652 HYDROCHLOROTHI Inactive HIAZIDE 25 every THIAZIDE 25 AZIDE MG TABS morning MG TABS ABILIFY 5 MG one p.o. ABILIFY 5 845620 ARIPIPRAZOLE Inactive TABS q. day MG TABS CIPROFLOXACI Take one CIPROFLOXAC 327744 CIPROFLOXACIN Inactive N HCL 500 MG (1) IN HCL 500 HCL TABS tablet by MG TABS mouth twice a day PROMETHAZINE 1 tab by PROMETHAZIN 969920 PROMETHAZINE Inactive HCL 25 MG mouth E HCL 25 MG HCL TABS every 6 TABS hours as needed PHENTERMINE 1 po q am PHENTERMINE 284511 PHENTERMINE Inactive HCL 37.5 MG for wt. HCL 37.5 MG HCL TABS loss TABS AMARYL 1 MG 1 tab AMARYL 1 MG 707108 GLIMEPIRIDE Inactive TABS twice TABS daily METFORMIN 1 tablet METFORMIN 025739 METFORMIN HCL Inactive HCL 500 MG by mouth HCL 500 MG TABS twice TABS daily SPIRONOLACTO 1 tablet SPIRONOLACT 936184 SPIRONOLACTONE Inactive NE 25 MG TAB by mouth ONE 25 MG daily TAB POTASSIUM 2 capsule POTASSIUM POTASSIUM Inactive CHLORIDE CR by mouth CHLORIDE CR CHLORIDE 10 MEQ CPCR daily 10 MEQ CPCR LISINOPRIL 1 tablet LISINOPRIL 309234 LISINOPRIL Inactive 20 MG TABS by mouth 20 MG TABS daily DIFLUCAN 100 1 tablet DIFLUCAN 878551 FLUCONAZOLE Inactive MG TABS by mouth 100 MG TABS every other day for 2 doses DIFLUCAN 100 1 tablet DIFLUCAN 687198 FLUCONAZOLE Inactive MG TAB by mouth 100 MG TAB daily x 3 days PREDNISONE 2 tablets PREDNISONE 921525 PREDNISONE Inactive 20 MG TAB today, 20 MG TAB then 1 tablet days 2-4 VYVANSE 20 1 tablet VYVANSE 20 LISDEXAMFETAMI Inactive MG ORAL CAPS daily for MG ORAL NE DIMESYLATE binge CAPS eating disorder TRAMADOL HCL 1/2 po TRAMADOL 797432 TRAMADOL HCL Inactive 50 MG TABS tid with HCL 50 MG ES TABS Tylenol prn pain AMOXICILLIN 2 po BID AMOXICILLIN 916165 AMOXICILLIN Inactive 500 MG CAPS x 10 days 500 MG CAPS PREDNISONE 2 tabs PREDNISONE 443403 PREDNISONE Inactive 20 MG TAB daily for 20 MG TAB 3 days, 1 tab daily for 3 days, 1/2 tab daily for 2 days NITROFURANTO One NITROFURANT 0478396 NITROFURANTOIN Inactive IN MONOHYD capsule OIN MONOHYD [...] HGBA1C - Chemistry sodium, serum 140 mmol/L 782-530 8119/04/13 potassium, serum 3.9 mmol/L 3.5-5.2 chloride, serum [...] 198 10^3/MM^3 10*3/mm3 142-424 Lab Report: Chlamydia/GC [id number] - Lab chlamydia DNA probe NOT DETECTED NOT DETECTED Lab Report: Chlamydia/GC APTIMA/[id number] - Microbiology Neisseria gonorrhoeae DNA probe NOT DETECTED NOT DETECTED Lab Report: Comp. Metabolic Panel, Lipid Panel - Chemistry sodium, serum 136 mmol/L 732-620 1310/01/04 carbon dioxide, venous blood 27.0 mmol/L 21.0-32.0 potassium, serum 4.6 mmol/L 3.5-5.2 chloride, serum 98 mmol/L 98-107 blood glucose 174 mg/dL 65-110 urea nitrogen, blood 12 mg/dL 7-18 creatinine, serum 0.78 mg/dL 0.55-1.30 alanine aminotransferase (SGPT), serum 65 U/L 12-78 aspartate aminotransferase (SGOT), serum 34 U/L 15-37 calcium, serum 8.9 mg/dL 8.5-10.1 bilirubin, serum, total 0.40 mg/dL 0.00-1.00 cholesterol, serum 219 mg/dL 336-304 2704/01/04 triglyceride, serum, fasting 214 mg/dL 30-200 HDL [...] mg/g mg/g{creat} 0-29 sodium, serum 140 mmol/L 211-951 6057/07/21 potassium, serum 3.9 mmol/L 3.5-5.2 chloride, serum [...] 142-424 Encounters Code Encounter Date Provider Facility CPT-23819 Level 3 Est. Patient Indigo Sexton ALEJANDRO [facility] 18:59:38 CDT CPT-98459 Level 3 Est. Patient [facility] 14:42:12 CDT -[facility] CPT-08496 Level 3 Est. Patient [facility] 22:18:20 CDT -[facility] CPT-73965 Level 3 Est. Patient [facility] 16:46:04 CDT -[facility] CPT-61720 Level 3 Est. Patient [facility] 15:39:53 CDT -[facility] CPT-37072 Level 3 Est. Patient Maite Sanchez MD [facility] 13:33:34 CDT -RHC CPT-48299 Level 3 Est. Patient [facility] 11:37:08 CDT -[facility] CPT-07882 Level 3 Est. Patient [facility] 17:13:29 PENSION EXAMINER -[facility]HC CPT-60810 Level 3 Est. Patient [facility] 18:42:44 CDT CPT-70139 Level 3 Est. Patient [facility] 16:25:39 CDT CPT-65870 Level 3 Est. Patient Casey ARCHIBALD [facility] 09:52:45 CDT -[facility] CPT-98820 Level 3 Est. Patient [facility] 11:03:29 PENSION EXAMINER -[facility]HC CPT-24861 Level 3 Est. Patient [facility] 11:03:08 PENSION EXAMINER -[facility]HC CPT-05171 Level 3 Est. Patient [facility] 14:33:31 CDT -[facility]HC CPT-34224 Level 3 Est. Patient [facility] 17:05:02 PENSION EXAMINER -RHC CPT-98726 Level 3 Est. Patient Joseph Pineda [facility] 17:48:06 PENSION EXAMINER -[facility] CPT-62167 Level 3 Est. Patient Joseph Pineda [facility] 14:59:22 PENSION EXAMINER -C CPT-97458 Level 3 Est. Patient Joseph iPneda [facility] - 21:45:56 PENSION EXAMINER [place] [facility] CPT-32074 Level 3 Est. Patient Joseph Pineda [facility] 21:29:50 CDT -RH CPT-95613 Level 3 Est. Patient Joseph Pineda [facility] 12:41:09 T -[facility] Procedures Code Procedure Name Date Entry Date Standard Description CPT-OV Office Visit 17:39:05 CDT CPT-OV Office Visit 15:19:50 T CPT-95299 Sono transvag pelvis non OB uterus ovaries cervix 18:04:34 CDT CPT-24909 Venipuncture Draw Fee 08:55:49 PENSION EXAMINER
--- OUTSIDE RECORDS SUMMARY | 2016-11-20 14:14 | External Medical Summary | Clinical Summary ---
:[address] [facility] Address [address] [address] Phone Allergies, Adverse Reactions, Alerts Allergy Name Reaction Description Start Date Severity Status Provider NKDA Critical Active Indigo Yonickieum TRIMMER HELPER NKDA Critical No Longer Indigo Yokum TRIMMER HELPER Active NKDA Critical Inactive Adrianna Elder [...] Resolved Indigo Other malaise 05/24 07/02 Yokum TRIMMER HELPER and fatigue SLEEP APNEA, 327.23 Active Joseph Pineda Obstructive OBSTRUCTIVE, 06/27 06/27 Farooq DO sleep apnea MILD (adult) (pediatric) OVERWEIGHT 278.02 Inactive Joseph Pineda Overweight 06/28 06/28 Farooq DO Obesity 278.00 Active Indigo Obesity, 06/28 10/18 Yokum TRIMMER HELPER unspecified OTH GENERAL V70.3 Resolved Maite Gutierrez Other general MEDICAL Laura ONEAL medical EXAMINATION PhD examination for ADMIN PURPOSES administrative purposes OTHER ABNORMAL 790.29 Resolved Maite C Other abnormal GLUCOSE 05/20 Laura ONEAL glucose PhD ACUTE 466.0 Resolved Maite C Acute BRONCHITIS 09/02 Laura ONEAL bronchitis PhD DEPENDENT 782.3 Resolved Indigo Edema EDEMA, LEGS, 10/29 10/18 Yokum TRIMMER HELPER BILATERAL HYPOKALEMIA, 276.8 Resolved Indigo Hypopotassemia MILD 10/29 07/02 Youm TRIMMER HELPER Diabetes, Type 250.00 Inactive Joseph Pineda Diabetes 2 06/27 06/27 Farooq DO mellitus without mention of complication, type II or unspecified type, not stated as uncontrolled Diabetes 250.02 Resolved Indigo Diabetes mellitus, type 06/27 TRIMMER HELPER mellitus II, without mention uncontrolled of [...] Resolved Indigo Routine gynecological 12/14 07/02 Yo TRIMMER HELPER gynecological examination examination Postmenopausal 627.1 Resolved Indigo Postmenopausal bleeding 12/14 TRIMMER HELPER bleeding Screening for V76.51 Resolved Indigo Screening for malignant 12/26 07/02 Yokum TRIMMER HELPER malignant neoplasms of neoplasms of colon colon Insomnia, 307.42 Active Indigo 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 HELPER disorder of initiating or maintaining sleep Establish care V68.89 Resolved Indigo Encounters for or get 01/16 07/02 Yo TRIMMER HELPER other specified acquainted administrative visit purpose Weakness, left 342.90 Resolved Indigo Hemiplegia, side of body 06/20 10/18 Yokum TRIMMER HELPER unspecified, affecting unspecified side TIA 435.9 Active Indigo Unspecified 06/20 07/02 Yokum TRIMMER HELPER transient cerebral ischemia Knee pain, 719.46 Active Indigo Pain in joint bilateral 06/20 10/18 Yokum TRIMMER HELPER involving lower leg Bronchitis 490 Resolved Indigo Bronchitis, not 07/23 10/18 Yokum TRIMMER HELPER specified as acute or chronic Diabetes 357.2 Active Maliheh Polyneuropathy mellitus, 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CHAIN HOOKER 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y Knee pain, 719.46 Active Indigo Pain in joint right 06/20 10/18 Yokum TRIMMER HELPER involving lower leg Jesi 112.3 Active Indigo Candidiasis of intertrigo 10/09 10/18 Yokum TRIMMER HELPER skin and nails Hyperlipidemia 272.4 Active Anne Other and 12/24 12/24 Neil unspecified RMA hyperlipidemia Incontinence, 788.33 Active Indigo Mixed mixed, 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 TRIMMER HELPER incontinence urge/stress (female) (male) Female stress 625.6 [...] EDEMA, ICD-782.3 Inactive Indigo Yokum LEGS, BILATERAL TRIMMER HELPER HYPOKALEMIA, MILD ICD-276.8 Inactive Indigo Yokum TRIMMER HELPER Diabetes mellitus, ICD-250.02 Inactive Indigo Yokum type II, TRIMMER HELPER uncontrolled Sinusitis, ICD-461.1 Inactive Ismael Coyne frontal, acute Amandeep ONEAL Laryngitis, acute ICD-464.00 Inactive Ismael Coyne Amandeep ONEAL Routine ICD-V72.31 Inactive Indigo Yokum gynecological TRIMMER HELPER examination Postmenopausal ICD-627.1 Inactive Indigo Yokum 2015 bleeding TRIMMER HELPER Screening for ICD-V76.51 Inactive Indigo Yokum 2015 malignant TRIMMER HELPER neoplasms of colon Establish care or ICD-V68.89 Inactive Indigo Yokum get acquainted TRIMMER HELPER visit Weakness, left ICD-342.90 Inactive Indigo Yokum side of body TRIMMER HELPER Bronchitis ICD-490 Inactive Indigo Yokum TRIMMER HELPER FATIGUE ICD-780.79 Inactive Indigo Yokum TRIMMER HELPER Medication List Medication Instructions Start Stop Generic NDC Status Provider Patient Date Date Name Instruction METFORMIN 2 tablets METFORMIN 07170793476 No Indigo Active HCL 500 MG by mouth HCL Longer Yokum TB24 twice Active TRIMMER HELPER daily AMARYL 1 MG 1 tablet GLIMEPIRID 35484647438 No Indigo Active ORAL TABS orally E Longer Yokum twice Active TRIMMER HELPER daily NYSTATIN apply to NYSTATIN 34338814136 Active Indigo Active 593385 rash TID Yokum UNIT/GM PRN TRIMMER HELPER CREA TROKENDI XR 2 tab TOPIRAMATE 33608425510 Active Malihe Active 100 MG ORAL daily h [id number] Ziglar i CHAIN HOOKER METOPROLOL 1 tab po METOPROLOL 92454257070 Active Indigo Active TARTRATE 25 bid TARTRATE Yokum MG TABS TRIMMER HELPER AZITHROMYCI 2 po qd x AZITHROMYC 74079139832 No Jillin Active N 250 MG 1 day, IN Longer a TABS then 1 po Active Frazel qd x 4 l TRIMMER HELPER days PREDNISONE 2 pills PREDNISONE 14898477155 No Jillin Active 20 MG TAB daily x 4 Longer a days Active Frazel l TRIMMER HELPER PIOGLITAZON take one PIOGLITAZO 98908620875 Active Malihe Active E HCL 30 MG a day NE HCL h ORAL TABS Ziglar i CHAIN HOOKER JANUVIA 100 1 tablet SITAGLIPTI 15023578173 No Indigo Active MG TABS by mouth N Longer Yokum daily PHOSPHATE Active TRIMMER HELPER ATORVASTATI 1 pill by ATORVASTAT 82578892155 Active Indigo Active N CALCIUM mouth IN CALCIUM Yokum 10 MG TABS nightly, TRIMMER HELPER for cholester ol ASPIRIN 81 1 po qd ASPIRIN 53274181567 Active Indigo Active MG ORAL Yokum TABS TRIMMER HELPER NITROFURANT One NITROFURAN 73965876462 No Indigo Active OIN MONOHYD capsule TOIN Longer Yokum MACRO 100 BID for MONOHYD Active TRIMMER HELPER MG CAPS UTI MACRO TRAMADOL 1/2 po TRAMADOL 53542300425 No Jillin Active HCL 50 MG tid with HCL Longer a TABS ES Active Frazel Tylenol l TRIMMER HELPER prn pain VYVANSE 20 1 tablet LISDEXAMFE 76715706884 No Jillin Active MG ORAL daily for TAMINE Longer a CAPS binge DIMESYLATE Active Frazel eating l TRIMMER HELPER disorder LASIX 20 MG 2 tablet FUROSEMIDE 43783942996 Active Indigo Active TAB by mouth Yokum daily TRIMMER HELPER CELEBREX 1 tablet CELECOXIB 02274391469 Active Indigo Active 200 MG CAPS by mouth Yokum daily TRIMMER HELPER with meals PREDNISONE 2 tablets PREDNISONE 46263503536 No Joseph Active 20 MG TAB today, Longer W Farooq then 1 Active DO tablet days 2-4 DIFLUCAN 1 tablet FLUCONAZOL 56685269975 No Joseph Active 100 MG TAB by mouth E Longer W Farooq daily x 3 Active DO days DIFLUCAN 1 tablet FLUCONAZOL 71859041776 No Joseph Active 100 MG TABS by mouth E Longer W Farooq every Active DO other day for 2 doses ZOFRAN 4 MG 1 po q6hr ONDANSETRO 39139300362 Active Joseph Active TABS PRN N HCL W Farooq Nausea DO PREDNISONE 2 tabs PREDNISONE 48325240543 No Joseph Active 20 MG TAB daily for Longer W Farooq 3 days, 1 Active DO tab daily for 3 days, 1/2 tab daily for 2 days AMOXICILLIN 2 po BID AMOXICILLI 60066045241 No Maite C Active 500 MG CAPS x 10 days N Longer Madril Active PhD LISINOPRIL 1 tablet LISINOPRIL 31770460631 No Maite C Active 20 MG TABS by mouth Longer Madril daily Active PhD POTASSIUM 2 capsule POTASSIUM 70800441046 No Joseph Active CHLORIDE CR by mouth CHLORIDE Longer W Farooq 10 MEQ CPCR daily Active DO SPIRONOLACT 1 tablet SPIRONOLAC 29392663565 No Joseph Active ONE 25 MG by mouth TONE Longer W Farooq TAB daily Active DO METFORMIN 1 tablet METFORMIN 07754085572 No Joseph Active HCL 500 MG by mouth HCL Longer W Farooq TABS twice Active DO daily AMARYL 1 MG 1 tab GLIMEPIRID 58060936668 No Joseph Active TABS twice E Longer W Farooq daily Active DO PHENTERMINE 1 po q am PHENTERMIN 15605923529 No Joseph Active HCL 37.5 MG for wt. E HCL Longer W Farooq TABS loss Active DO PROMETHAZIN 1 tab by PROMETHAZI 96244104557 No Joseph Active E HCL 25 MG mouth NE HCL Longer W Farooq TABS every 6 Active DO hours as needed CIPROFLOXAC Take one CIPROFLOXA 37225778690 No Joseph Active IN HCL 500 (1) DELORES HCL Longer W Farooq MG TABS tablet by Active DO mouth twice a day ABILIFY 5 one p.o. ARIPIPRAZO 29732233317 No Joseph Active MG TABS q. day LE Longer W Farooq Active DO HYDROCHLORO 2 tabs HYDROCHLOR 49505597343 No Joseph Active THIAZIDE 25 every OTHIAZIDE Longer W Farooq MG TABS morning Active DO ABILIFY 2 1 po q hs ARIPIPRAZO 95151977926 No Joseph Active MG TABS for major LE Longer W Farooq depressio Active DO n ADIPEX-P 1/2 tab PHENTERMIN 87636135837 No Casey Active 37.5 MG po q am E HCL Longer Leonarda CAPS for Active PA weight loss CIPRO 500 1 tablet CIPROFLOXA 87701839142 No Casey Active MG TAB by mouth DELORES HCL Longer Leonarda twice Active PA daily NECON 1/35 1 po NORETHINDR 43716770990 No Casey Active (28) 1-35 daily ONE-ETH Longer Leonarda MG-MCG TABS ESTRADIOL Active PA TRAMADOL 1 po tid TRAMADOL 19573360623 No Casey Active HCL 50 MG with ES HCL Longer Leonarda TABS Tylenol Active PA FLUCONAZOLE one p.o. FLUCONAZOL 41975034171 No Casey Active 100 MG TABS q. day 2 E Longer Leonarda days Active PA POTASSIUM 1 capsule POTASSIUM 04287348371 No Casey Active CHLORIDE CR by mouth CHLORIDE Longer 10 MEQ CPCR daily Active PA IMIPRAMINE Take 6 IMIPRAMINE 51341875037 Active Indigo Active HCL 50 MG tablets HCL Yokum TABS by mouth TRIMMER HELPER at bedtime DIFLUCAN 1 tablet FLUCONAZOL 74164893506 No Joseph Active 100 MG TAB by mouth E Longer W Farooq daily Active DO VERAPAMIL 2 po bid VERAPAMIL 20365491450 Active Indigo Active HCL CR 120 HCL Yokum MG TAB CR TRIMMER HELPER PERMETHRIN apply PERMETHRIN 49053756386 No Joseph Active 5 % CREA neck to Longer W Farooq toes Active DO tonight and then rinse off in morning. repeat at 7 days SEROQUEL XR one p.o. QUETIAPINE 47080606243 No Joseph Active 50 MG q. FUMARATE Longer W Farooq [id number] evening Active DO TRAMADOL 1-2 TRAMADOL 20000612197 No Joseph Active HCL 50 MG tablets HCL Longer W Farooq TABS every 6-8 Active DO hours as needed for pain ALPRAZOLAM one p.o. ALPRAZOLAM 13453918925 Active Indigo Active 3 MG q.h.s. Yokum [id number] TRIMMER HELPER ALPRAZOLAM Take 1 ALPRAZOLAM 93349435538 No Joseph Active XR tablet by [id number] Longer W Farooq [id number] mouth at Active DO bedtime DIFLUCAN 1 tablet FLUCONAZOL 92492906522 No Joseph Active 100 MG TAB by mouth E Longer W Farooq daily Active DO AMBIEN 10 1 tab by ZOLPIDEM 99373809344 Active Indigo Active MG TAB mouth at TARTRATE Yokum bedtime TRIMMER HELPER as needed for sleep DIFLUCAN 100 1 tablet DIFLUCAN 662381 FLUCONAZOLE Inactive MG TAB by mouth 100 MG TAB daily ALPRAZOLAM Take 1 ALPRAZOLAM ALPRAZOLAM Inactive XR [id number] tablet by XR [id number] mouth at [id number] bedtime TRAMADOL HCL 1-2 TRAMADOL 255899 TRAMADOL HCL Inactive 50 MG TABS tablets HCL 50 MG every 6-8 TABS hours as needed for pain SEROQUEL XR one p.o. SEROQUEL XR QUETIAPINE Inactive 50 MG q. 50 MG FUMARATE [id number] evening [id number] PERMETHRIN 5 apply PERMETHRIN 212577 PERMETHRIN Inactive % CREA neck to 5 % CREA toes tonight and then rinse off in morning. repeat at 7 days DIFLUCAN 100 1 tablet DIFLUCAN 055742 FLUCONAZOLE Inactive MG TAB by mouth 100 MG TAB daily POTASSIUM 1 capsule POTASSIUM POTASSIUM Inactive CHLORIDE CR by mouth CHLORIDE CR CHLORIDE 10 MEQ CPCR daily 10 MEQ CPCR FLUCONAZOLE one p.o. FLUCONAZOLE 640547 FLUCONAZOLE Inactive 100 MG TABS q. day 2 100 MG TABS days TRAMADOL HCL 1 po tid TRAMADOL 771981 TRAMADOL HCL Inactive 50 MG TABS with ES HCL 50 MG Tylenol TABS NECON 1/35 1 po NECON 1/35 NORETHINDRONE- Inactive (28) 1-35 daily (28) 1-35 ETH ESTRADIOL MG-MCG TABS MG-MCG TABS CIPRO 500 MG 1 tablet CIPRO 500 451823 CIPROFLOXACIN Inactive TAB by mouth MG TAB HCL twice daily ADIPEX-P 1/2 tab ADIPEX-P 331043 PHENTERMINE Inactive 37.5 MG CAPS po q am 37.5 MG HCL for CAPS weight loss ABILIFY 2 MG 1 po q hs ABILIFY 2 213256 ARIPIPRAZOLE Inactive TABS for major MG TABS depressio n HYDROCHLOROT 2 tabs HYDROCHLORO 469084 HYDROCHLOROTHI Inactive HIAZIDE 25 every THIAZIDE 25 AZIDE MG TABS morning MG TABS ABILIFY 5 MG one p.o. ABILIFY 5 338625 ARIPIPRAZOLE Inactive TABS q. day MG TABS CIPROFLOXACI Take one CIPROFLOXAC 610675 CIPROFLOXACIN Inactive N HCL 500 MG (1) IN HCL 500 HCL TABS tablet by MG TABS mouth twice a day PROMETHAZINE 1 tab by PROMETHAZIN 881670 PROMETHAZINE Inactive HCL 25 MG mouth E HCL 25 MG HCL TABS every 6 TABS hours as needed PHENTERMINE 1 po q am PHENTERMINE 033765 PHENTERMINE Inactive HCL 37.5 MG for wt. HCL 37.5 MG HCL TABS loss TABS AMARYL 1 MG 1 tab AMARYL 1 MG 625782 GLIMEPIRIDE Inactive TABS twice TABS daily METFORMIN 1 tablet METFORMIN 298335 METFORMIN HCL Inactive HCL 500 MG by mouth HCL 500 MG TABS twice TABS daily SPIRONOLACTO 1 tablet SPIRONOLACT 321193 SPIRONOLACTONE Inactive NE 25 MG TAB by mouth ONE 25 MG daily TAB POTASSIUM 2 capsule POTASSIUM POTASSIUM Inactive CHLORIDE CR by mouth CHLORIDE CR CHLORIDE 10 MEQ CPCR daily 10 MEQ CPCR LISINOPRIL 1 tablet LISINOPRIL 764151 LISINOPRIL Inactive 20 MG TABS by mouth 20 MG TABS daily DIFLUCAN 100 1 tablet DIFLUCAN 19760111 FLUCONAZOLE Inactive MG TABS by mouth 100 MG TABS every other day for 2 doses DIFLUCAN 100 1 tablet DIFLUCAN 937031 FLUCONAZOLE Inactive MG TAB by mouth 100 MG TAB daily x 3 days PREDNISONE 2 tablets PREDNISONE 750485 PREDNISONE Inactive 20 MG TAB today, 20 MG TAB then 1 tablet days 2-4 VYVANSE 20 1 tablet VYVANSE 20 LISDEXAMFETAMI Inactive MG ORAL CAPS daily for MG ORAL NE DIMESYLATE binge CAPS eating disorder TRAMADOL HCL 1/2 po TRAMADOL 538072 TRAMADOL HCL Inactive 50 MG TABS tid with HCL 50 MG ES TABS Tylenol prn pain JANUVIA 100 1 tablet JANUVIA 100 SITAGLIPTIN Inactive MG TABS by mouth MG TABS PHOSPHATE daily AMARYL 1 MG 1 tablet AMARYL 1 MG 158515 GLIMEPIRIDE Inactive ORAL TABS orally ORAL TABS twice daily METFORMIN 2 tablets METFORMIN METFORMIN HCL Inactive HCL 500 MG by mouth HCL 500 MG TB24 twice TB24 daily AMOXICILLIN 2 po BID AMOXICILLIN 934104 AMOXICILLIN Inactive 500 MG CAPS x 10 days 500 MG CAPS PREDNISONE 2 tabs PREDNISONE 671020 PREDNISONE Inactive 20 MG TAB daily for 20 MG TAB 3 days, 1 tab daily for 3 days, 1/2 tab daily for 2 days NITROFURANTO One NITROFURANT 1240994 NITROFURANTOIN Inactive IN MONOHYD capsule OIN MONOHYD MONOHYD MACRO MACRO 100 MG BID for MACRO 100 CAPS UTI MG CAPS PREDNISONE 2 pills PREDNISONE 918527 PREDNISONE Inactive 20 MG TAB daily x 4 20 MG TAB days AZITHROMYCIN 2 po qd x AZITHROMYCI 7250720 AZITHROMYCIN Inactive 250 MG TABS 1 day, [...] HGBA1C - Chemistry sodium, serum 140 mmol/L 906-450 0027/06/03 urea nitrogen, blood 14 mg/dL 7-18 creatinine, serum 0.88 mg/dL 0.55-1.30 hemoglobin A1C, blood, as % of total hemoglobin 5.7 % 4.3-6.0 potassium, serum 3.9 mmol/L 3.5-5.2 chloride, serum 105 mmol/L 98-107 carbon dioxide, venous blood 29.4 mmol/L 21.0-32.0 blood glucose 124 mg/dL 65-110 calcium, serum 8.9 mg/dL 8.5-10.1 Lab Report: CBC W/DIFF, B-Type Natriuretic Peptide [...] Report: CBC, HGBA1C - Hematology mean corpuscular volume, RBC 91 fL 80-97 hematocrit, blood 39.7 % 36.0-46.0 hemoglobin, blood 13.6 g/dL 12.0-16.0 erythrocyte (RBC) count 4.36 10^6/MM^3 10*6/mm3 4.04-5.48 leukocyte count, blood 6.0 10^3/MM^3 10*3/mm3 4.6-10.2 mean corpuscular hemoglobin, RBC 31.1 pg 27.0-31.2 mean corpuscular hemoglobin 34.1 G/DL % 31.8-35.4 concentration, RBC red blood cell distribution width 14.2 % 11.6-14.8 platelet count 198 10^3/MM^3 10*3/mm3 142-424 Lab Report: Comp. Metabolic Panel, Lipid Panel - Chemistry carbon dioxide, venous blood 27.0 mmol/L 21.0-32.0 potassium, serum 4.6 mmol/L 3.5-5.2 chloride, serum 98 mmol/L 98-107 blood glucose 174 mg/dL 65-110 urea nitrogen, blood 12 mg/dL 7-18 sodium, serum 136 mmol/L 645-691 1949/01/04 creatinine, serum 0.78 mg/dL 0.55-1.30 alanine aminotransferase (SGPT), serum 65 U/L 12-78 aspartate aminotransferase (SGOT), serum 34 U/L 15-37 calcium, serum 8.9 mg/dL 8.5-10.1 bilirubin, serum, total 0.40 mg/dL 0.00-1.00 cholesterol, serum 219 mg/dL 174-167 5183/01/04 triglyceride, serum, fasting 214 mg/dL 30-200 HDL cholesterol, serum 39 mg/dL 32-96 LDL cholesterol, serum 137 mg/dL 0-130 Lab Report: Lipid Panel - Chemistry cholesterol, serum 157 mg/dL 312-997 3825/08/22 triglyceride, serum, fasting 215 mg/dL 30-200 HDL [...] mg/dL Encounters Code Encounter Date Provider Facility CPT-05234 Level 4 New Patient Yury Benoit MD [facility] 15:17:12 CDT CPT-82948 Level 3 Est[facility] [place] CPT-52496 Level 4 Est. Patient [facility] - 10:01:06 CDT [place] CPT-26999 Level 3 Est. Patient [facility] 08:58:07 CDT CHAIN HOOKER CPT-42255 Level [address] [facility] 14:40:56 CDT TRIMMER HELPER CPT-64590 Level 4 Est. Patient [facility] 17:29:53 TRANSIT MIXER OPERATOR CHAIN HOOKER CPT-06178 Level 4 Est. Patient Indigo Sexton [facility] 09:51:54 TRANSIT MIXER OPERATOR CPT-33427 Level 3 Est. Patient Indigo Sexton [facility] 18:59:38 CDT CPT-81483 Level 3 Est. Patient Joseph Pineda [facility] 14:42:12 CDT -[facility] CPT-64605 Level 3 Est. Patient Joseph Pineda [facility] 22:18:20 CDT -[facility] CPT-73336 Level 3 Est. Patient Joseph Pineda [facility] 16:46:04 CDT -[facility] CPT-07458 Level 3 Est. Patient Joseph Pineda [facility] 15:39:53 CDT -[facility] CPT-41985 Level 3 Est. Patient Maite Sanchez MD [facility] 13:33:34 CDT -[facility] CPT-42849 Level 3 Est. Patient Joseph Pineda [facility] 11:37:08 CDT -[facility] CPT-93793 Level 3 Est. Patient Joseph Pindea [facility] 17:13:29 TRANSIT MIXER OPERATOR -[facility] CPT-44239 Level 3 Est. Patient Joseph Edwin [facility] 18:42:44 CDT CPT-46793 Level 3 Est. Patient Joseph Edwin [facility] 16:25:39 CDT CPT-77361 Level 3 Est. Patient Casey ARCHIBALD [facility] 09:52:45 CDT -[facility] CPT-90598 Level 3 Est. Patient Joseph Edwin [facility] 11:03:29 TRANSIT MIXER OPERATOR -[facility] CPT-36333 Level 3 Est. Patient Joseph Edwin [facility] 11:03:08 TRANSIT MIXER OPERATOR -[facility] CPT-34875 Level 3 Est. Patient Joseph Edwin [facility] 14:33:31 CDT -[facility] CPT-92082 Level 3 Est. Patient [facility] 17:05:02 TRANSIT MIXER OPERATOR -[facility] CPT-51981 Level 3 Est. Patient Jsoeph Pineda [facility] 17:48:06 TRANSIT MIXER OPERATOR -[facility] CPT-08060 Level 3 Est. Patient Joseph Pineda [facility] 14:59:22 TRANSIT MIXER OPERATOR -[facility] CPT-48853 Level 3 Est. Patient Joseph Pineda [facility] - 21:45:56 TRANSIT MIXER OPERATOR [employer] [facility] CPT-47910 Level 3 Est. Patient Joseph Pineda [facility] 21:29:50 CDT -[facility] CPT-90953 Level 3 Est. Patient Joseph Pineda [facility] 12:41:09 CDT -[facility] Procedures Code Procedure Name Date Entry Date Standard Description CPT-99345 Urine Dip (Floor Use Only) 15:17:13 CDT CPT-51540 Dil F ureth int 15:17:13 CDT CPT-61215 Venipuncture Draw Fee 09:19:08 CDT CPT-01572 Lipid - LAB USE ONLY 09:19:07 CDT CPT-JTINJ Asp/Joint Injection 09:26:49 CDT CPT-55554 Chest 2V Frontal and Lat 14:47:43 CDT CPT-JTINJ Asp/Joint Injection 09:51:53 TRANSIT MIXER OPERATOR CPT-OV Office Visit 17:39:05 CDT CPT-OV Office Visit 15:19:50 CDT CPT-80120 Sono transvag pelvis non OB uterus ovaries cervix 18:04:34 CDT CPT-88415 Venipuncture Draw Fee 08:55:49 TRANSIT MIXER OPERATOR
--- OUTSIDE RECORDS SUMMARY | 2016-11-20 14:14 | External Medical Summary ---
:1965 Author Organization [facility] Summary purpose TRANSITION OF CARE AUTO GENERATION Chief Complaint and Reason for Visit Admit Diagnosis 1 POSTMENOPAUSAL BLEEDING Problem list No authorized problems tracked for [...] tests and/or laboratory data RESULTS Routine Urinalysis 48-00-820834:15:00 Result Normal Range Units Color YELLOW Clarity Clear Specific [place] 1.010 1.003-1.035 pH 6.5 4.5-8.0 Glucose NEGATIVE Bilirubin NEGATIVE Ketones NEGATIVE Protein NEGATIVE Urobilinogen 0.2 0-0.2 E.U./dL Nitrites NEGATIVE Blood NEGATIVE Leukocytes NEGATIVE WBCs No WBC's Seen RBCs No RBC's Seen. Squamous Epithelial Few Chemistry 36-57-836215:40:00 Result Normal Range Units Sodium 138 134-145 [...] 10-20 Estimated GFR 69 >=60 mL/min/1.7 Hematology 26-69-261062:40:00 Result Normal Range Units WBC 5.8 4.8-10.8 103/uL RBC 4.5 4.2-5.4 106/uL HGB 13.6 12.0-16.0 g/dl HCT 39.5 36.9-47.0 % MCV 87.8 81-99 FL MCH 30.2 27-31 pg MCHC 34.4 33-37 g/dl RDW 12.9 11.5-15.5 % PLT 196 130-400 103/uL MPV 10.2 7.3-10.4 FL Special Chemistry 90-66-062870:40:00 Result Normal Range Units HCG (Qualitative) Negative Body Fluid 45-04-421662:15:00 Result Normal Range Units pH 6.5 4.5-8.0 Radiology Results 27-90-477826:40:00 Result Normal Range Units MPV 10.2 7.3-10.4 FL History of procedures Procedure Code Code Type Description Date Performed Performing Physician 69.09 ICD9-CM D & C NEC 12-29-2014 29221 CPT-4 HYSTEROSCOPY, BIOPSY 12-29-2014 KAR WARNER 63926 CPT-4 COMPLETE CBC, 12-29-2014 KAR WARNER AUTOMATED 41439 CPT-4 URINALYSIS, AUTO 12-29-2014 KAR WARNER W/SCOPE 16107 CPT-4 COMPREHEN METABOLIC 12-29-2014 KAR WARNER PANEL 11853 CPT-4 BLOOD TYPING, ABO 12-29-2014 KAR WARNER 64999 CPT-4 RBC ANTIBODY SCREEN 12-29-2014 KAR WARNER 40216 CPT-4 BLOOD TYPING, RH (D) 12-29-2014 KAR WARNER 41165 CPT-4 CHORIONIC GONADOTROPIN 12-29-2014 KAR WARNER ASSAY J7120 CPT-4 RINGERS LACTATE 12-29-2014 KAR WARNER INFUSION J2001 CPT-4 LIDOCAINE INJECTION 12-29-2014 KAR WARNER J7030 CPT-4 NORMAL SALINE SOLUTION 12-29-2014 KAR WARNER INFUS J2405 CPT-4 ONDANSETRON HCL 12-29-2014 KAR WARNER INJECTION J1885 CPT-4 TORADOL SYR 30MG/ML 12-29-2014 KAR WARNER J2250 CPT-4 INJ MIDAZOLAM 12-29-2014 KAR WARNER HYDROCHLORIDE J3010 CPT-4 FENTANYL CITRATE 12-29-2014 KAR WARNER INJECITON J2704 CPT-4 INJ, PROPOFOL, 10 MG 12-29-2014 KAR WARNER 38756 CPT-4 ROUTINE VENIPUNCTURE 12-29-2014 KAR WARNER Functional status Functional Status Finding Observation Time Hearing Prob Loc none 91-94-656087:01 Vision Problems yes 74-00-515113:01 Vision Correct Dev glasses 48-76-167487:01 Ambulation Asst Dev none 15-90-326619:01 Range of Motion full :50 Muscle Strength RUE 5 ROM full resist :50 Muscle Strength RLE 5 ROM full resist :50 Muscle Strength LUE 5 ROM full resist :50 Muscle Strength LLE 5 ROM full resist :50 Transfers assist x 1 42-66-636237:50 Ambulation in room 04-75-769626:50 Balance unsteady 14-47-357465:50 Bathing Assistance none 88-43-198515:01 Eating Assistance none :01 Dressing Assistance none : Toileting Assistance none :01 Transfer Assistance none 48-03-624358:01 Decline Slf Care/Mob no :01 Phys Cond Stable yes :01 Nutrition normal 94-42-819215:50 Diet regular 26-51-299014:50 Oral Cavity moist and intact :50 Teeth missing (specify) 52-08-591951:50 Dental Hygiene good 79-31-750609:50 Abdomen Appearance obese 00-79-867134:50 Abdomen soft :50 Bowel Sounds present :50 NG Tube no :50 Feeding Tube none 03-83-765353:50 Buck no :50 Cont Bladder Irr no 82-81-555406:50 Ostomy no 14-47-843602:50 Stool normal 59-94-738231:50 Urination incontinent :50 Quality sym/unlabored :50 Cough absent :50 Secretions no :50 Breath Sounds RUL clear :50 Breath Sounds RML clear :50 Breath Sounds RLL clear :50 Breath Sounds ADE clear :50 Breath Sounds LLL clear :50 Airway natural :50 Chest Tube no :50 Oxygen no 50-57-373605:45 C-PAP no :50 BI-PAP no :50 Temp >100.4 no :50 Temp <96.8 no : Chills with rigors no :50 HR > 90bpm no :50 Respirations > 20 no : Systolic <90 no :50 headache stiff neck no :50 Rapid Resp no :50 IV Site Location Rt ac space :50 IV Type peripheral :50 IV Site Information discontinued :50 IV Site Start Attmpt 1 times 66-90-287102:35 IV Site Mynor 18 50-96-558037:50 IV Site Appearance WNL :50 IV Site Color clear :50 IV Site Patent yes 18-97-523512:50 Dressing Type occlusive 79-36-700860:50 Nursing Note Pt states she's doing "good...not much :51 bleeding". Cognitive Status Finding Observation Time Learning Ability comprehends well : Neurological no : Psychological no : Physical no : Hearing no :00 Entry Level Programmer Needed no :00 Sign Language no : Emotional no :00 Vision yes 55-43-478753:00 Laguage no 62-03-539979:00 Financial no 19-47-400707:00 Vital signs Type Value Date Respiration Rate 18breaths per minute :45 Pulse 91beats per minute :45 Oxygen Saturation 95% :45 BP Systolic 106mmHg 56-56-092574:45 BP Diastolic 67mmHg 67-45-809438:45 Temperature 97.6F 17-90-599133:50 Height 62inches :56 Weight 240LB 67-14-018773:56 Social history Type Value Smoking Status FORMER [...]
--- OUTSIDE RECORDS SUMMARY | 2016-11-20 14:14 | External Medical Summary | Clinical Summary ---
:1965 Author Organization [facility] Address [address] [place] [address] Phone Allergies, Adverse Reactions, Alerts Allergy Name [...] Name Instruction VYVANSE 20 1 tablet LISDEXAMFETAMINE 28503776502 Active Joseph Pineda Active MG ORAL daily for DIMESYLATE Farooq DO CAPS binge eating disorder METFORMIN 2 tablet METFORMIN HCL 89422630448 Active Joseph Pineda Active HCL 500 MG daily for Farooq DO TB24 blood sugars LASIX 20 2 tablet by FUROSEMIDE 10127016657 Active Joseph Pineda Active MG TAB mouth daily Farooq DO CELEBREX 1 tablet by CELECOXIB 03448113386 Active Joseph Pineda Active 200 MG mouth daily Farooq DO CAPS with meals PREDNISONE 2 tablets 2 PREDNISONE 23700275152 No Joseph Pineda Active 20 MG TAB today, then 0 Longer Farooq DO 1 tablet 1 Active days 2-4 5 / 0 4 / 3 DIFLUCAN 1 tablet by 2 FLUCONAZOLE 97627273784 No Joseph W Active 100 MG TAB mouth daily 0 Longer Farooq DO x 3 days 1 Active 5 / 0 4 / 3 AMARYL 1 1 tablet GLIMEPIRIDE 97735961693 Active Joseph Pineda Active MG ORAL orally Farooq DO TABS twice daily DIFLUCAN 1 tablet by 2 FLUCONAZOLE 61878504473 No Joseph W Active 100 MG mouth every 0 Longer Farooq DO TABS other day 1 Active for 2 doses 5 / 0 1 / 2 3 ZOFRAN 4 1 po q6hr ONDANSETRON HCL 08063614809 Active Joseph Pineda Active MG TABS PRN Nausea Farooq DO PREDNISONE 2 tabs 2 PREDNISONE 96258618792 No Joseph Pineda Active 20 MG TAB daily for 3 0 Longer Farooq DO days, 1 tab 1 Active daily for 3 4 days, 1/2 / tab daily 1 for 2 days 0 / 2 5 TRAMADOL 1/2 po tid TRAMADOL HCL 76057187826 Active Joseph Pineda Active HCL 50 MG with ES Farooq DO TABS Tylenol prn pain AMOXICILLI 2 po BID x 2 AMOXICILLIN 96809603644 No Maite C Active N 500 MG 10 days 0 Longer Madril CAPS 1 Active PhD 0 / 2 0 LISINOPRIL 1 tablet by 2 LISINOPRIL 23830945491 No Maite C Active 20 MG TABS mouth 0 Longer Madril daily 1 Active PhD 0 / 1 0 POTASSIUM 2 capsule 2 POTASSIUM CHLORIDE 69800191246 No Joseph Pineda Active CHLORIDE by mouth 0 Longer Farooq DO CR 10 MEQ daily 1 Active CPCR 8 2 9 SPIRONOLAC 1 tablet by 2 SPIRONOLACTONE 63277704317 No Joseph Pineda Active TONE 25 MG mouth daily 0 Longer Farooq DO TAB 1 Active 4 / 0 8 / 2 9 METFORMIN 1 tablet 2 METFORMIN HCL 46767204810 No Joseph Pineda Active HCL 500 MG by mouth 0 Longer Farooq DO TABS twice daily 1 Active 4 / 0 8 / 2 9 AMARYL 1 1 tab twice 2 GLIMEPIRIDE 37118891127 No Joseph W Active MG TABS daily 0 Longer Farooq DO 1 Active 4 / 0 8 / 2 9 PHENTERMIN 1 po q am 2 PHENTERMINE HCL 34909484340 No Joseph W Active E HCL 37.5 for wt. 0 Longer Farooq DO MG TABS loss 1 Active 3 / 1 2 / 2 3 PROMETHAZI 1 tab by 2 PROMETHAZINE HCL 98500450312 No Joseph W Active NE HCL 25 mouth every 0 Longer Farooq DO MG TABS 6 hours as 1 Active needed 3 / 0 9 / 0 9 CIPROFLOXA Take one 2 CIPROFLOXACIN HCL 74427741994 No Joseph W Active DELORES HCL (1) tablet 0 Longer Farooq DO 500 MG by mouth 1 Active TABS twice a day 3 / 0 9 / 0 9 ABILIFY 5 one p.o. q. 2 ARIPIPRAZOLE 81511903108 No Joseph W Active MG TABS day 0 Longer Farooq DO 1 Active 3 / 0 9 / 0 9 HYDROCHLOR 2 tabs 2 HYDROCHLOROTHIAZID 32505627501 No Joseph W Active OTHIAZIDE every 0 E Longer Farooq DO 25 MG TABS morning 1 Active 3 / 0 6 / 2 7 ABILIFY 2 1 po q hs 2 ARIPIPRAZOLE 00278400032 No Joseph W Active MG TABS for major 0 Longer Farooq DO depression 1 Active 3 / 0 5 / 0 7 ADIPEX-P 1/2 tab po 2 PHENTERMINE HCL 28793656849 No Casey Active 37.5 MG q am for 0 Longer Leonarda CAPS weight loss 1 Active PA 3 / 0 5 / 0 1 CIPRO 500 1 tablet by 2 CIPROFLOXACIN HCL 96909662521 No Casey Active MG TAB mouth twice 0 Longer Leonarda daily 1 Active PA 3 / 0 5 / 0 1 NECON 1/35 1 po daily 2 NORETHINDRONE-ETH 66148371951 No Casey Active (28) 1-35 0 ESTRADIOL Longer [place] MG-MCG 1 Active PA TABS 3 / 0 5 / 0 1 TRAMADOL 1 po tid 2 TRAMADOL HCL 81006697468 No Casey Active HCL 50 MG with ES 0 Longer [place] TABS Tylenol 1 Active PA 3 / 0 5 / 0 1 FLUCONAZOL one p.o. q. 2 FLUCONAZOLE 50694478271 No Casey Active E 100 MG day 2 days 0 Longer [place] TABS 1 Active PA 3 / 0 5 / 0 1 POTASSIUM 1 capsule 2 POTASSIUM CHLORIDE 07888320420 No Casey Active CHLORIDE by mouth 0 Longer Leonarda CR 10 MEQ daily 1 Active PA CPCR 3 / 0 5 / 0 1 IMIPRAMINE Take 6 IMIPRAMINE HCL 29184881723 Active Maite C Active HCL 50 MG tablets by Madril TABS mouth at PhD bedtime DIFLUCAN 1 tablet by 2 FLUCONAZOLE 60751045867 No Joseph W Active 100 MG TAB mouth daily 0 Longer Farooq DO 1 Active 2 / 0 2 / 2 4 METOPROLOL 1/2 tab po METOPROLOL 58784141376 Active Joseph W Active TARTRATE bid TARTRATE Farooq DO 25 MG TABS VERAPAMIL 2 po bid VERAPAMIL HCL 39181440316 Active Joseph W Active HCL CR 120 Farooq DO MG TAB CR PERMETHRIN apply neck 2 PERMETHRIN 15924438358 No Joseph W Active 5 % CREA to toes 0 Longer Farooq DO tonight and 1 Active then rinse 2 off in / morning. 0 repeat at 7 1 days / 2 0 SEROQUEL one p.o. q. 2 QUETIAPINE 47960964218 No Joseph W Active XR 50 MG evening 0 FUMARATE Longer Farooq DO [id number] 1 Active 2 / 0 1 / 2 0 TRAMADOL 1-2 tablets 2 TRAMADOL HCL 89622331503 No Joseph W Active HCL 50 MG every 6-8 0 Longer Farooq DO TABS hours as 1 Active needed for 2 pain / 0 1 / 2 0 ALPRAZOLAM one p.o. ALPRAZOLAM 05789844825 Active Joseph W Active 3 MG q.h.s. Farooq DO [id number] ALPRAZOLAM Take 1 2 ALPRAZOLAM 32997915512 No Joseph W Active XR tablet by 0 [id number]-OIM Longer Farooq DO [id number]-HTP mouth at 1 Active bedtime 1 / 2 9 DIFLUCAN 1 tablet by 2 FLUCONAZOLE 81234499773 No Joseph W Active 100 MG TAB mouth daily 0 Longer Farooq DO 1 Active 0 / 0 6 AMBIEN 10 1 tab by ZOLPIDEM TARTRATE 61788095497 Active Joseph W Active MG TAB mouth at Farooq DO bedtime as needed for sleep DIFLUCAN 100 1 tablet DIFLUCAN 19760111 FLUCONAZOLE Inactive MG TAB by mouth 100 MG TAB daily ALPRAZOLAM Take 1 ALPRAZOLAM ALPRAZOLAM Inactive XR [id number] tablet by XR [id number] mouth at [id number] bedtime TRAMADOL HCL 1-2 TRAMADOL 278010 TRAMADOL HCL Inactive 50 MG TABS tablets HCL 50 MG every 6-8 TABS hours as needed for pain SEROQUEL XR one p.o. SEROQUEL XR QUETIAPINE Inactive 50 MG q. evening 50 MG FUMARATE [id number]-YDY PERMETHRIN 5 apply neck PERMETHRIN 559421 PERMETHRIN Inactive % CREA to toes 5 % CREA tonight and then rinse off in morning. repeat at 7 days DIFLUCAN 100 1 tablet DIFLUCAN 436060 FLUCONAZOLE Inactive MG TAB by mouth 100 MG TAB daily POTASSIUM 1 capsule POTASSIUM POTASSIUM Inactive CHLORIDE CR by mouth CHLORIDE CR CHLORIDE 10 MEQ CPCR daily 10 MEQ CPCR FLUCONAZOLE one p.o. FLUCONAZOLE 19760111 FLUCONAZOLE Inactive 100 MG TABS q. day 2 100 MG TABS days TRAMADOL HCL 1 po tid TRAMADOL 039274 TRAMADOL HCL Inactive 50 MG TABS with ES HCL 50 MG Tylenol TABS NECON 1/35 1 po daily NECON /35 NORETHINDRONE- Inactive (28) 1-35 (28) 1-35 ETH ESTRADIOL MG-MCG TABS MG-MCG TABS CIPRO 500 MG 1 tablet CIPRO 500 103170 CIPROFLOXACIN Inactive TAB by mouth MG TAB HCL twice daily ADIPEX-P 1/2 tab po ADIPEX-P 851561 PHENTERMINE Inactive 37.5 MG CAPS q am for 37.5 MG HCL weight CAPS loss ABILIFY 2 MG 1 po q hs ABILIFY 2 ARIPIPRAZOLE Inactive TABS for major MG TABS depression HYDROCHLOROT 2 tabs HYDROCHLORO 041265 HYDROCHLOROTHI Inactive HIAZIDE 25 every THIAZIDE 25 AZIDE MG TABS morning MG TABS ABILIFY 5 MG one p.o. ABILIFY 5 ARIPIPRAZOLE Inactive TABS q. day MG TABS CIPROFLOXACI Take one CIPROFLOXAC 607972 CIPROFLOXACIN Inactive N HCL 500 MG (1) tablet IN HCL 500 HCL TABS by mouth MG TABS twice a day PROMETHAZINE 1 tab by PROMETHAZIN 918424 PROMETHAZINE Inactive HCL 25 MG mouth E HCL 25 MG HCL TABS every 6 TABS hours as needed PHENTERMINE 1 po q am PHENTERMINE 331259 PHENTERMINE Inactive HCL 37.5 MG for wt. HCL 37.5 MG HCL TABS loss TABS AMARYL 1 MG 1 tab AMARYL 1 MG 832829 GLIMEPIRIDE Inactive TABS twice TABS daily METFORMIN 1 tablet METFORMIN 676163 METFORMIN HCL Inactive HCL 500 MG by mouth HCL 500 MG TABS twice TABS daily SPIRONOLACTO 1 tablet SPIRONOLACT 431923 SPIRONOLACTONE Inactive NE 25 MG TAB by mouth ONE 25 MG daily TAB POTASSIUM 2 capsule POTASSIUM POTASSIUM Inactive CHLORIDE CR by mouth CHLORIDE CR CHLORIDE 10 MEQ CPCR daily 10 MEQ CPCR LISINOPRIL 1 tablet LISINOPRIL 086239 LISINOPRIL Inactive 20 MG TABS by mouth 20 MG TABS daily DIFLUCAN 100 1 tablet DIFLUCAN 365353 FLUCONAZOLE Inactive MG TABS by mouth 100 MG TABS every other day for 2 doses DIFLUCAN 100 1 tablet DIFLUCAN 601528 FLUCONAZOLE Inactive MG TAB by mouth 100 MG TAB daily x 3 days PREDNISONE 2 tablets PREDNISONE 931728 PREDNISONE Inactive 20 MG TAB today, 20 MG TAB then 1 tablet days 2-4 AMOXICILLIN 2 po BID x AMOXICILLIN 485419 AMOXICILLIN Inactive 500 MG CAPS 10 days 500 MG CAPS PREDNISONE 2 tabs PREDNISONE 668430 PREDNISONE Inactive 20 MG TAB daily for [...] Panel - Chemistry sodium, serum 137 mmol/L 844-910 0088/08/29 potassium, serum 4.1 mmol/L 3.5-5.2 chloride, serum 100 mmol/L 98-107 carbon dioxide, venous blood 31.1 mmol/L 21.0-32.0 blood glucose 138 mg/dL 65-110 calcium, serum 9.2 mg/dL 8.5-10.1 urea nitrogen, blood 9 mg/dL 7-18 creatinine, serum 0.80 mg/dL 0.60-1.30 Lab Report: CBC, Comp. Metabolic Panel, HGBA1C - Chemistry sodium, serum 140 mmol/L 989-314 0490/04/13 potassium, serum 3.9 mmol/L 3.5-5.2 chloride, serum [...] 4.3-6.0 Encounters Code Encounter Date Provider Facility CPT-98943 Level 3 Est. Patient Joseph Trivedi [facility] 22:18:20 CDT -[facility] CPT-01393 Level 3 Est. Patient Joseph Trivedi [facility] 16:46:04 CDT -[facility] CPT-64614 Level 3 Est. Patient Joseph Trivedi [facility] 15:39:53 CDT -[facility] CPT-86393 Level 3 Est. Patient Maite Sanchez MD [facility] 13:33:34 CDT -[facility] CPT-60918 Level 3 Est. Patient Joseph Pineda [facility] 11:37:08 CDT -[facility] CPT-13772 Level 3 Est. 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 Patient Joseph Pineda [facility] 18:42:44 CDT CPT-62338 Level 3 Est. Patient Joseph Pineda [facility] 16:25:39 CDT CPT-26633 Level 3 Est. Patient Casey ARCHIBALD [facility] 09:52:45 CDT -[facility] CPT-28184 Level 3 Est. 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 Patient [place] Edwin [facility] 14:33:31 CDT -[facility] CPT-02318 Level 3 Est. 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 Patient Joseph [facility] 14:59:22 CORE SUCKER -[facility] CPT-84086 Level 3 Est. Patient Jospeh [facility] - 21:45:56 CORE SUCKER [place] [facility] CPT-17872 Level 3 Est. Patient [facility] 21:29:50 CDT -RHC CPT-70921 Level 3 Est. 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
--- OUTSIDE RECORDS SUMMARY | 2016-11-20 14:15 | External Medical Summary | Clinical Summary ---
:1965 Author Organization [facility] [employer] Address [address] [address] Phone Allergies, Adverse Reactions, Alerts Allergy Name Reaction Description Start Date Severity Status Provider VERSED States jsut about Critical Active Gloria Saavedra MANAGER FREELANCE killed her NKDA Critical Active Indigo Yokum AIRLINE MECHANIC NKDA Critical No Longer Indigo Yokum AIRLINE MECHANIC Active NKDA Critical Inactive Adrianna Elder Conditions [...] 311 Active Indigo Depressive chronic 09/20 Yokum AIRLINE MECHANIC disorder, not elsewhere classified SCABIES 133.0 Resolved Maite Gutierrez Scabies 06/23 Laura ONEAL PhD HYPERTENSION 401.9 Active Joseph Pineda Unspecified 05/24 Farooq DO essential hypertension FATIGUE 780.79 Resolved Indigo Other malaise 05/24 07/02 Yokum AIRLINE MECHANIC and fatigue SLEEP APNEA, 327.23 Active Joseph Pineda Obstructive OBSTRUCTIVE, 06/27 06/27 Farooq DO sleep apnea MILD (adult) (pediatric) OVERWEIGHT 278.02 Inactive Joseph Pineda Overweight 06/28 06/28 Farooq DO Obesity 278.00 Active Indigo Obesity, 06/28 10/18 Yokum AIRLINE MECHANIC unspecified OT GENERAL V70.3 Resolved Maite C Other general MEDICAL Laura ONEAL medical EXAMINATION PhD examination for ADMIN administrative PURPOSES purposes OTHER 790.29 Resolved Maite C Other abnormal ABNORMAL 05/20 Laura ONEAL glucose GLUCOSE PhD ACUTE 466.0 Resolved Maite Gutierrez Acute bronchitis BRONCHITIS 09/02 Laura ONEAL PhD DEPENDENT 782.3 Resolved Indigo Edema EDEMA, LEGS, 10/29 10/18 Yokum AIRLINE MECHANIC BILATERAL HYPOKALEMIA, 276.8 Resolved Indigo Hypopotassemia MILD 10/29 07/02 Yo AIRLINE MECHANIC Diabetes, 250.00 Inactive Joseph Pineda Diabetes Type 2 06/27 06/27 Farooq DO mellitus without mention of complication, type II or unspecified type, not stated as uncontrolled Diabetes 250.02 Resolved Indigo Diabetes mellitus, 06/27 10/18 Yokum AIRLINE MECHANIC mellitus without type II, mention of uncontrolled [...] Resolved Indigo Routine gynecological 12/14 07/02 Yo AIRLINE MECHANIC gynecological examination examination Postmenopausa 627.1 Resolved Indigo Postmenopausal l bleeding 12/14 07/02 Yokum AIRLINE MECHANIC bleeding Screening for V76.51 Resolved Indigo Screening for malignant 12/26 07/02 Yokum AIRLINE MECHANIC malignant neoplasms of neoplasms of colon colon Insomnia, 307.42 Active 2015/0 Indigo 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 AIRLINE MECHANIC disorder of initiating or maintaining sleep Establish V68.89 Resolved Indigo Encounters for care or get 01/16 07/02 Yokum AIRLINE MECHANIC other specified acquainted administrative visit purpose Weakness, 342.90 Resolved Indigo Hemiplegia, left side of 06/20 10/18 Yokum AIRLINE MECHANIC unspecified, body affecting unspecified side TIA 435.9 Active Indigo Unspecified 06/20 07/02 Yokum AIRLINE MECHANIC transient cerebral ischemia Knee pain, 719.46 Active Indigo Pain in joint bilateral 06/20 10/18 Yokum AIRLINE MECHANIC involving lower leg Bronchitis 490 Resolved Indigo Bronchitis, not 07/23 10/18 Yokum AIRLINE MECHANIC specified as acute or chronic Diabetes 357.2 Active Maliheh Polyneuropathy mellitus, 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 PLANT TECHNICIAN 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 y Knee pain, 719.46 Resolved Indigo Pain in joint right 06/20 09/20 Yokum AIRLINE MECHANIC involving lower leg Jesi 112.3 Resolved Indigo Candidiasis of intertrigo 10/09 09/20 Yokum AIRLINE MECHANIC skin and nails Hyperlipidemi 272.4 Active Anne Other and a 12/24 12/24 Neil unspecified RMA hyperlipidemia Incontinence, 788.33 Resolved Indigo Mixed mixed, 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 AIRLINE MECHANIC incontinence urge/stress (female) (male) Female stress 625.6 Active Yury Monaco Stress incontinence 01/03 01/03 Cy patel MD female Vaginal odor 623.8 Resolved Indigo Other specified 05/28 09/20 Yokum AIRLINE MECHANIC noninflammatory disorders of vagina Urinary tract 599.0 Resolved Indigo Urinary tract infection 05/28 09/20 Yokum AIRLINE MECHANIC infection, site not specified Urine odor 791.9 Resolved Indigo Other 05/28 09/20 Yokum AIRLINE MECHANIC nonspecific findings on examination of urine Unspecified Resolved Indigo dyspareunia 08/19 09/20 Yokum AIRLINE MECHANIC Depression Resolved Indigo 09/20 [employer]okum AIRLINE MECHANIC Anxiety Active Indigo Anxiety state, Disorder 08/26k AIRLINE MECHANIC unspecified SCABIES ICD-133.0 Inactive Maite C Laura PhD FATIGUE ICD-780.79 Inactive Indigo Yokum AIRLINE MECHANIC ABNORMAL VAGINAL ICD-626.9 Inactive Maite C Laura BLEEDING PhD OTH GENERAL ICD-V70.3 Inactive Maite C Laura MEDICAL PhD EXAMINATION ADMIN PURPOSES OTHER ABNORMAL ICD-790.29 Inactive Maite C Ronyril GLUCOSE PhD ACUTE BRONCHITIS ICD-466.0 Inactive Maite C Laura PhD HYPOKALEMIA, MILD ICD-276.8 Inactive Indigo Yokum AIRLINE MECHANIC Diabetes mellitus, ICD-250.02 Inactive Indigo Yokum type II, AIRLINE MECHANIC uncontrolled DEPENDENT EDEMA, ICD-782.3 Inactive Indigo Yokum LEGS, BILATERAL AIRLINE MECHANIC Routine ICD-V72.31 Inactive Indigo Yokum gynecological AIRLINE MECHANIC examination Postmenopausal ICD-627.1 Inactive Indigo Yokum 2015 bleeding AIRLINE MECHANIC Screening for ICD-V76.51 Inactive Indigo Yokum 2015 malignant AIRLINE MECHANIC neoplasms of colon Establish care or ICD-V68.89 Inactive Indigo Yokum get acquainted AIRLINE MECHANIC visit Weakness, left ICD-342.90 Inactive Indigo Yokum side of body AIRLINE MECHANIC Bronchitis ICD-490 Inactive Indigo Yokum AIRLINE MECHANIC Knee pain, right ICD-719.46 Inactive Indigo Yokum AIRLINE MECHANIC Jesi intertrigo ICD-112.3 Inactive Indigo Yokum AIRLINE MECHANIC Incontinence, ICD-788.33 Inactive Indigo Yokum 2016 mixed, urge/stress AIRLINE MECHANIC Vaginal odor ICD-623.8 Inactive Indigo Yokum 09/20 AIRLINE MECHANIC Urinary tract ICD-599.0 Inactive Indigo Yokum 09/20 infection AIRLINE MECHANIC Urine odor ICD-791.9 Inactive Indigo Yokum AIRLINE MECHANIC Unspecified Inactive Indigo Yokum dyspareunia AIRLINE MECHANIC Depression Inactive Indigo Yokum AIRLINE MECHANIC Sinusitis, ICD-461.1 Inactive Ismael Coyne frontal, acute Amandeep ONEAL Laryngitis, acute ICD-464.00 Inactive Ismael Coyne Amandeep ONEAL Medication List Medication Instructions Start Stop Generic NDC Status Provider Patient Date Date Name Instruction ALPRAZOLAM 3 one p.o. ALPRAZOLAM 72777924399 Active Indigo Active MG [id number] q.h.s. Yokum AIRLINE MECHANIC ABILIFY 10 MG Take one ARIPIPRAZOLE 18531533268 Active Indigo Active ORAL TABS tablet Yokum daily for AIRLINE MECHANIC depression CELEBREX 200 1 tablet 2 CELECOXIB 72422766451 No Indigo Active MG CAPS by mouth 0 Longer Yokum daily with 1 Active AIRLINE MECHANIC meals 7 / 0 4 / 2 4 TROKENDI XR 1 tab by 2 TOPIRAMATE 80609582475 No Indigo Active 100 MG ORAL mouth 0 Longer Yokum [id number] daily 1 Active AIRLINE MECHANIC 7 0 4 VESICARE 10 MG 1 pill by SOLIFENACIN 74862063791 Active J Carlos Enrique Active TABS mouth SUCCINATE [place] daily for MD overactive bladder CIPRO 250 MG 1 tablet 2 CIPROFLOXACIN 55372599519 No Indigo Active TAB by mouth 0 HCL Longer Yokum twice 1 Active AIRLINE MECHANIC daily 7 METFORMIN HCL 2 tablets 2 METFORMIN HCL 68742527599 No Indigo Active 500 MG TB24 by mouth 0 Longer Yokum twice 1 Active AIRLINE MECHANIC daily 2 AMARYL 1 MG 1 tablet 2 GLIMEPIRIDE 57735411751 No Indigo Active ORAL TABS orally 0 Longer Yokum twice 1 Active AIRLINE MECHANIC daily 2 NYSTATIN apply to NYSTATIN 97567598427 Active Indigo Active 435460 UNIT/GM rash TID Yokum CREA PRN AIRLINE MECHANIC METOPROLOL 1 tab po METOPROLOL 89101629922 Active Indigo Active TARTRATE 25 MG bid TARTRATE Yokum TABS AIRLINE MECHANIC AZITHROMYCIN 2 po qd x 2 AZITHROMYCIN 20133644088 No Jillina Active 250 MG TABS 1 day, 0 Longer Frazell then 1 po 1 Active AIRLINE MECHANIC qd x 4 6 days / 0 3 / 2 6 PREDNISONE 20 2 pills 2 PREDNISONE 75047964805 No Jillina Active MG TAB daily x 4 0 Longer Frazell days 1 Active AIRLINE MECHANIC 6 / 0 3 / 2 5 PIOGLITAZONE take one a PIOGLITAZONE 31677214687 Active Maliheh Active HCL 30 MG ORAL day HCL Ziglari TABS PLANT TECHNICIAN JANUVIA 100 MG 1 tablet 2 SITAGLIPTIN 08716813242 No Indigo Active TABS by mouth 0 PHOSPHATE Longer Yokum daily 1 Active AIRLINE MECHANIC 6 / 0 2 / 1 6 ATORVASTATIN 1 pill by ATORVASTATIN 64444995779 Active Indigo Active CALCIUM 10 MG mouth CALCIUM Yokum TABS nightly, AIRLINE MECHANIC for cholestero l ASPIRIN 81 MG 1 po qd ASPIRIN Active Indigo Active ORAL TABS Yokum AIRLINE MECHANIC NITROFURANTOIN One 2 NITROFURANTOIN 50695692426 No Indigo Active MONOHYD MACRO capsule 0 MONOHYD MACRO Longer Yokum 100 MG CAPS BID for 1 Active AIRLINE MECHANIC UTI 6 / 0 2 / 1 3 TRAMADOL HCL 1/2 po tid 2 TRAMADOL HCL 09306878827 No Jillina Active 50 MG TABS with ES 0 Longer Frazell Tylenol 1 Active AIRLINE MECHANIC prn pain 5 / 0 2 VYVANSE 20 MG 1 tablet 2 LISDEXAMFETAMI 38684256478 No Jillina Active ORAL CAPS daily for 0 NE DIMESYLATE Longer [place]ell binge 1 Active AIRLINE MECHANIC eating 5 disorder / 0 2 LASIX 20 MG 2 tablet FUROSEMIDE 13478681895 Active Indigo Active TAB by mouth Yokum daily AIRLINE MECHANIC PREDNISONE 20 2 tablets 2 PREDNISONE 41461287731 No Joseph W Active MG TAB today, 0 Longer Farooq DO then 1 1 Active tablet 5 days 2-4 / 0 4 3 DIFLUCAN 100 1 tablet 2 FLUCONAZOLE 37169394497 No Joseph W Active MG TAB by mouth 0 Longer Farooq DO daily x 3 1 Active days 5 / 0 4 3 DIFLUCAN 100 1 tablet 2 FLUCONAZOLE 99357814376 No Joseph W Active MG TABS by mouth 0 Longer Farooq DO every 1 Active other day 5 for 2 / doses 0 1 / 2 3 ZOFRAN 4 MG 1 po q6hr ONDANSETRON 68038300114 Active Joseph W Active TABS PRN Nausea HCL Farooq DO PREDNISONE 20 2 tabs 2 PREDNISONE 61345744904 No Joseph W Active MG TAB daily for 0 Longer Farooq DO 3 days, 1 1 Active tab daily 4 for 3 / days, 1/2 1 tab daily 0 for 2 days / 2 5 AMOXICILLIN 2 po BID x 2 AMOXICILLIN 11089596822 No Maite C Active 500 MG CAPS 10 days 0 Longer Madril 1 Active MD PhD 4 / 1 0 / 2 0 LISINOPRIL 20 1 tablet 2 LISINOPRIL 58437413486 No Maite C Active MG TABS by mouth 0 Longer Madril daily 1 Active PhD 4 0 / 1 0 POTASSIUM 2 capsule 2 POTASSIUM 56188165981 No Joseph W Active CHLORIDE CR 10 by mouth 0 CHLORIDE Longer Farooq DO MEQ CPCR daily 1 Active 4 / 0 8 / 2 9 SPIRONOLACTONE 1 tablet 2 SPIRONOLACTONE 11065462550 No Joseph W Active 25 MG TAB by mouth 0 Longer Farooq DO daily 1 Active 4 / 0 8 / 2 9 METFORMIN HCL 1 tablet 2 METFORMIN HCL 69348852468 No Joseph W Active 500 MG TABS by mouth 0 Longer Farooq DO twice 1 Active daily 4 / 0 8 / 2 9 AMARYL 1 MG 1 tab 2 GLIMEPIRIDE 31155491371 No Joseph W Active TABS twice 0 Longer Farooq DO daily 1 Active 4 / 0 8 / 2 9 PHENTERMINE 1 po q am 2 PHENTERMINE 33771480135 No Joseph W Active HCL 37.5 MG for wt. 0 HCL Longer Farooq DO TABS loss 1 Active 3 / 1 2 / 2 3 PROMETHAZINE 1 tab by 2 PROMETHAZINE 85043664687 No Joseph W Active HCL 25 MG TABS mouth 0 HCL Longer Farooq DO every 6 1 Active hours as 3 needed / 0 9 / 0 9 CIPROFLOXACIN Take one 2 CIPROFLOXACIN 42650080690 No Joseph W Active HCL 500 MG (1) tablet 0 HCL Longer Farooq DO TABS by mouth 1 Active twice a 3 day / 0 9 / 0 9 ABILIFY 5 MG one p.o. 2 ARIPIPRAZOLE 64468928932 No Joseph W Active TABS q. day 0 Longer Farooq DO 1 Active 3 / 0 9 / 0 9 HYDROCHLOROTHI 2 tabs 2 HYDROCHLOROTHI 88900234387 No Joseph W Active AZIDE 25 MG every 0 AZIDE Longer Farooq DO TABS morning 1 Active 3 / 0 6 / 2 7 ABILIFY 2 MG 1 po q hs 2 ARIPIPRAZOLE 62073855671 No Joseph W Active TABS for major 0 Longer Farooq DO depression 1 Active 3 / 0 5 / 0 7 ADIPEX-P 37.5 1/2 tab po 2 PHENTERMINE 14332497330 No Casey Active MG CAPS q am for 0 HCL Longer weight 1 Active PA loss 3 / 0 5 / 0 1 CIPRO 500 MG 1 tablet 2 CIPROFLOXACIN 68418157109 No Casey Active TAB by mouth 0 HCL Longer Leonarda twice 1 Active PA daily 3 / 0 5 / 0 1 NECON 1 po daily 2 NORETHINDRONE- 29758982039 No Casey Active () 1-35 0 ETH ESTRADIOL Longer Winfield MG-MCG TABS 1 Active PA 3 / 0 5 / 0 1 TRAMADOL HCL 1 po tid 2 TRAMADOL HCL 53965089674 No Casey Active 50 MG TABS with ES 0 Longer Tylenol 1 Active PA 3 / 0 5 / 0 1 FLUCONAZOLE one p.o. 2 FLUCONAZOLE 11993034477 No Casey Active 100 MG TABS q. day 2 0 Longer days 1 Active PA 3 / 0 5 / 0 1 POTASSIUM 1 capsule 2 POTASSIUM 31487884282 No Casey Active CHLORIDE CR 10 by mouth 0 CHLORIDE Longer MEQ CPCR daily 1 Active PA 3 / 0 5 / 0 1 IMIPRAMINE HCL Take 6 IMIPRAMINE HCL 85939086076 Active Indigo Active 50 MG TABS tablets by Yokum mouth at AIRLINE MECHANIC bedtime DIFLUCAN 100 1 tablet 2 FLUCONAZOLE 90139738902 No Joseph W Active MG TAB by mouth 0 Longer Farooq DO daily 1 Active 2 / 0 2 / 2 4 VERAPAMIL HCL 2 po bid VERAPAMIL HCL 25500993022 Active Indigo Active CR 120 MG TAB Yokum CR AIRLINE MECHANIC PERMETHRIN 5 % apply neck 2 PERMETHRIN 39972558572 No Joseph W Active CREA to toes 0 Longer Farooq DO tonight 1 Active and then 2 rinse off / in 0 morning. 1 repeat at / 7 days 2 0 SEROQUEL XR 50 one p.o. 2 QUETIAPINE 96318743407 No Joseph W Active MG [id number] q. evening 0 FUMARATE Longer Farooq DO 1 Active 2 / 0 1 / 2 0 TRAMADOL HCL 1-2 2 TRAMADOL HCL 89233248881 No Joseph W Active 50 MG TABS tablets 0 Longer Farooq DO every 6-8 1 Active hours as 2 needed for / pain 0 1 2 0 ALPRAZOLAM XR Take 1 2 ALPRAZOLAM 06571224727 No Joseph W Active [id number] tablet by 0 [id number] Longer Farooq DO mouth at 1 Active bedtime 1 / 2 9 DIFLUCAN 100 1 tablet 2 FLUCONAZOLE 90164607961 No Joseph W Active MG TAB by mouth 0 Longer Farooq DO daily 1 Active 0 / 0 6 AMBIEN 10 MG 1 tab by ZOLPIDEM 14410408716 Active Indigo Active TAB mouth at TARTRATE Yokum bedtime as AIRLINE MECHANIC needed for sleep DIFLUCAN 100 1 tablet DIFLUCAN 19760111 FLUCONAZOLE Inactive MG TAB by mouth 100 MG TAB daily ALPRAZOLAM Take 1 ALPRAZOLAM ALPRAZOLAM Inactive XR [id number] tablet by XR [id number] mouth at [id number] bedtime TRAMADOL HCL 1-2 TRAMADOL 201944 TRAMADOL HCL Inactive 50 MG TABS tablets HCL 50 MG every 6-8 TABS hours as needed for pain SEROQUEL XR one p.o. SEROQUEL XR QUETIAPINE Inactive 50 MG q. 50 MG FUMARATE [id number] evening [id number] PERMETHRIN 5 apply PERMETHRIN 388984 PERMETHRIN Inactive % CREA neck to 5 [...] days TRAMADOL HCL 1 po tid TRAMADOL 955088 TRAMADOL HCL Inactive 50 MG TABS with ES HCL 50 MG Tylenol TABS NECON 35 1 po NECON NORETHINDRONE- Inactive (28) 1-35 daily (28) 1-35 ETH ESTRADIOL MG-MCG TABS MG-MCG TABS CIPRO 500 MG 1 tablet CIPRO 500 805656 CIPROFLOXACIN Inactive TAB by mouth MG TAB HCL twice daily ADIPEX-P 1/2 tab ADIPEX-P 462648 PHENTERMINE Inactive 37.5 MG CAPS po q am 37.5 MG HCL for CAPS weight loss ABILIFY 2 MG 1 po q hs ABILIFY 2 963749 ARIPIPRAZOLE Inactive TABS for major MG TABS depressio n HYDROCHLOROT 2 tabs HYDROCHLORO 077931 HYDROCHLOROTHI Inactive HIAZIDE 25 every THIAZIDE 25 AZIDE MG TABS morning MG TABS ABILIFY 5 MG one p.o. ABILIFY 5 186018 ARIPIPRAZOLE Inactive TABS q. day MG TABS CIPROFLOXACI Take one CIPROFLOXAC 725506 CIPROFLOXACIN Inactive N HCL 500 MG (1) IN HCL 500 HCL TABS tablet by MG TABS mouth twice a day PROMETHAZINE 1 tab by PROMETHAZIN 934601 PROMETHAZINE Inactive HCL 25 MG mouth E HCL 25 MG HCL TABS every 6 TABS hours as needed PHENTERMINE 1 po q am PHENTERMINE 677668 PHENTERMINE Inactive HCL 37.5 MG for wt. HCL 37.5 MG HCL TABS loss TABS AMARYL 1 MG 1 tab AMARYL 1 MG 833419 GLIMEPIRIDE Inactive TABS twice TABS daily METFORMIN 1 tablet METFORMIN 644234 METFORMIN HCL Inactive HCL 500 MG by mouth HCL 500 MG TABS twice TABS daily SPIRONOLACTO 1 tablet SPIRONOLACT 356148 SPIRONOLACTONE Inactive NE 25 MG TAB by mouth ONE 25 MG daily TAB POTASSIUM 2 capsule POTASSIUM POTASSIUM Inactive CHLORIDE CR by mouth CHLORIDE CR CHLORIDE 10 MEQ CPCR daily 10 MEQ CPCR LISINOPRIL 1 tablet LISINOPRIL 675206 LISINOPRIL Inactive 20 MG TABS by mouth 20 MG TABS daily DIFLUCAN 100 1 tablet DIFLUCAN 971004 FLUCONAZOLE Inactive MG TABS by mouth 100 MG TABS every other day for 2 doses DIFLUCAN 100 1 tablet DIFLUCAN 532156 FLUCONAZOLE Inactive MG TAB by mouth 100 MG TAB daily x 3 days PREDNISONE 2 tablets PREDNISONE 841582 PREDNISONE Inactive 20 MG TAB today, 20 MG TAB then 1 tablet days 2-4 VYVANSE 20 1 tablet VYVANSE 20 LISDEXAMFETAMI Inactive MG ORAL CAPS daily for MG ORAL NE DIMESYLATE binge CAPS eating disorder TRAMADOL HCL 1/2 po TRAMADOL 244162 TRAMADOL HCL Inactive 50 MG TABS tid with HCL 50 MG ES TABS Tylenol prn pain JANUVIA 100 1 tablet JANUVIA 100 SITAGLIPTIN Inactive MG TABS by mouth MG TABS PHOSPHATE daily AMARYL 1 MG 1 tablet AMARYL 1 MG 485105 GLIMEPIRIDE Inactive ORAL TABS orally ORAL TABS twice daily METFORMIN 2 tablets METFORMIN METFORMIN HCL Inactive HCL 500 MG by mouth HCL 500 MG TB24 twice TB24 daily TROKENDI XR 1 tab by TROKENDI XR TOPIRAMATE Inactive 100 MG ORAL mouth 100 MG ORAL [id number] daily [id number]-EHF CELEBREX 200 1 tablet CELEBREX 209325 CELECOXIB Inactive MG CAPS by mouth 200 MG CAPS daily with meals AMOXICILLIN 2 po BID AMOXICILLIN 095797 AMOXICILLIN Inactive 500 MG CAPS x 10 days 500 MG CAPS PREDNISONE 2 tabs PREDNISONE 329642 PREDNISONE Inactive 20 MG TAB daily for 20 MG TAB 3 days, 1 tab daily for 3 days, 1/2 tab daily for 2 days NITROFURANTO One NITROFURANT 3173683 NITROFURANTOIN Inactive IN MONOHYD capsule OIN MONOHYD MONOHYD MACRO MACRO 100 MG BID for MACRO 100 CAPS UTI MG CAPS PREDNISONE 2 pills PREDNISONE 003830 PREDNISONE Inactive 20 MG TAB daily x 4 20 MG TAB days AZITHROMYCIN 2 po qd x AZITHROMYCI 9969542 AZITHROMYCIN Inactive 250 MG TABS 1 day, N 250 MG then 1 po TABS qd x 4 days CIPRO 250 MG 1 tablet CIPRO 250 385117 CIPROFLOXACIN Inactive TAB by mouth MG TAB [...] Panel - Chemistry sodium, serum 143 mmol/L 111-014 5793/06/05 carbon dioxide, venous blood 30.4 mmol/L 21.0-32.0 [...] 6.0 % 4.3-6.0 cholesterol, serum 176 mg/dL 669-502 0238/06/05 triglyceride, serum, fasting 41 mg/dL 30-200 HDL [...] 152 10^3/MM^3 10*3/mm3 142-424 Lab Report: Chlamydia/GC [id number] - Lab chlamydia DNA probe NOT DETECTED NOT DETECTED Lab Report: Chlamydia/GC APTIMA/[id number] - Microbiology Neisseria gonorrhoeae DNA probe NOT [...] positive Negative specific gravity, urine 1.020 1.000-1.030 glucose, urine, semiquantitative Negative Negative ketones, urine, by test strip Negative Negative bilirubin, urine 1+ Negative pH, urine, semiquantitative 6.0 5.0-8.5 Office Visit: [...] negative Encounters Code Encounter Date Provider Facility CPT-82618 Level 4 Est. Patient Indigo Sexton [facility] - 16:58:20 CDT [place] CPT-76500 Level 3 Est. Patient Yury Benoit MD [facility] 17:20:07 CDT CPT-13638 Level 4 Est. Patient [facility] - 17:02:40 POTATO GRADER [place] CPT-63073 Level 4 New Patient Yury Benoit MD [facility] 15:17:12 CDT CPT-73430 Level 3 Est. Patient [facility] - 13:37:46 CDT [place] CPT-96920 Level 4 Est. Patient [facility] - 10:01:06 CDT [place] CPT-69465 Level 3 Est. Patient [facility] 08:58:07 CDT PLANT TECHNICIAN CPT-69504 Level 3 Est. [facility] 14:40:[address] [facility] CPT-66506 Level 4 Est. Patient [facility] 17:29:53 POTATO GRADER PLANT TECHNICIAN CPT-77215 Level 4 Est. Patient Indigo [facility] 09:51:54 POTATO GRADER CPT-22575 Level 3 Est. Patient [facility] 18:59:38 CDT CPT-18097 Level 3 Est. Patient Joseph Pineda [facility] 14:42:12 CDT [facility] CPT-41953 Level 3 Est. Patient Joseph Trivedi [facility] 22:18:20 CDT -[facility] CPT-82572 Level 3 Est. Patient Joseph Pineda [facility] 16:46:04 CDT -[facility] CPT-18217 Level 3 Est. Patient Joseph Pineda [facility] 15:39:53 CDT -[facility] CPT-75682 Level 3 Est. Patient Maite Sanchez MD [facility] 13:33:34 CDT -[facility] CPT-01630 Level 3 Est. Patient Joseph Pineda [facility] 11:37:08 CDT -[facility] CPT-86813 Level 3 Est. Patient Joseph Pineda [facility] 17:13:29 POTATO GRADER -[facility] CPT-45241 Level 3 Est. Patient Joseph Pineda [facility] 18:42:44 CDT CPT-59903 Level 3 Est. Patient Joseph Pineda [facility] 16:25:39 CDT CPT-26340 Level 3 Est. Patient Casey [facility] 09:52:45 CDT -[facility] CPT-18439 Level 3 Est. Patient Joseph Pineda [facility] 11:03:29 POTATO GRADER -[facility] CPT-07711 Level 3 Est. Patient Joseph Pineda [facility] 11:03:08 POTATO GRADER -[facility] CPT-08006 Level 3 Est. Patient Joseph Pineda [facility] 14:33:31 CDT -[facility] CPT-85385 Level 3 Est. Patient Joseph Pineda [facility] 17:05:02 POTATO GRADER -[facility] CPT-49889 Level 3 Est. Patient Joseph Pineda [facility] 17:48:06 POTATO GRADER -[facility] CPT-15800 Level 3 Est. Patient Joseph Pineda [facility] 14:59:22 POTATO GRADER -[facility] CPT-18388 Level 3 Est. Patient Joseph Pineda [facility] - 21:45:56 POTATO GRADER [place] [facility] CPT-43097 Level 3 Est. Patient Joseph Trivedi [facility] 21:29:50 CDT -[facility] CPT-22069 Level 3 Est. Patient Joseph Trivedi [facility] 12:41:09 CDT -[facility] Procedures Code Procedure Name Date Entry Date Standard Description CPT-38819 Wet Mount - LAB USE ONLY 12:39:03 POTATO GRADER CPT-59975 Vaginal Culture - LAB USE ONLY 12:39:03 POTATO GRADER CPT-63848 Urine Culture - LAB USE ONLY 11:52:44 POTATO GRADER CPT-50976 UA w micro - LAB USE ONLY 11:52:44 POTATO GRADER CPT-37886 Postop F/U Visit 12:08:35 CDT CPT-82527 Postop F/U Visit 18:20:10 CDT CPT-A4351 [facility]oplast Female Cath 09:37:10 CDT CPT-35402 Urine Dip (Floor Use Only) 15:17:13 CDT CPT-71175 Dil F ureth int 15:17:13 CDT CPT-17954 Venipuncture Draw Fee 09:19:08 CDT CPT-15327 Lipid - LAB USE ONLY 09:19:07 CDT CPT-JTINJ Asp/Joint Injection 09:26:49 CDT CPT-31437 Chest 2V Frontal and Lat 14:47:43 CDT CPT-JTINJ Asp/Joint Injection 09:51:53 POTATO GRADER CPT-OV Office Visit 17:39:05 CDT CPT-OV Office Visit 15:19:50 CDT CPT-93001 Sono transvag pelvis non OB uterus ovaries cervix 18:04:34 CDT CPT-95042 Venipuncture Draw Fee 08:55:49 POTATO GRADER
--- OUTSIDE RECORDS SUMMARY | 2016-11-20 14:16 | External Medical Summary | Clinical Summary ---
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 NKDA Critical Inactive Adrianna Elder Conditions [...] Ismael Coyne Acute frontal frontal, acute 12[facility] Laryngitis, 464.00 Resolved Ismael Coyne Acute acute 12/26 [facility] l[facility] without mention of obstruction Binge eating 307.51 Active Joseph Pineda Bulimia nervosa disorder 08/15 08/15 Farooq DO Routine V72.31 Active Jillina Routine gynecological 12/14 12/14 [place] gynecological examination THERMO PROCESSOR examination Postmenopausal 627.1 Active Jillina Postmenopausal bleeding 12/14 12/14 [place] bleeding THERMO PROCESSOR Screening for V76.51 Active Ismael Coyne Screening for malignant 12/26 12/26 [place] malignant neoplasms of MD neoplasms of colon colon Insomnia, 307.42 Active Indigo 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 THERMO PROCESSOR disorder of initiating or maintaining sleep Establish care V68.89 Active Indigo Encounters for or get 01/16 01/18 Yokum THERMO PROCESSOR other specified acquainted administrative visit purpose SCABIES ICD-133.0 Inactive Maite Sanchez PhD OTH GENERAL ICD-V70.3 Inactive Maite Sanchez MEDICAL MD PhD EXAMINATION ADMIN PURPOSES OTHER ABNORMAL ICD-790.29 Inactive Maite Sanchez GLUCOSE PhD ACUTE BRONCHITIS ICD-466.0 Inactive Maite Sanchez PhD Sinusitis, ICD-461.1 Inactive Ismael Coyne frontal, acute Amandeep ONEAL Laryngitis, ICD-464.00 Inactive Ismael Coyne acute Amandeep ONEAL ABNORMAL VAGINAL ICD-626.9 Inactive Maite Sanchez BLEEDING PhD Medication List Medication Instructions Start Stop Generic NDC Status Provider Patient Date Date Name Instruction NITROFURANTOIN One NITROFURANTOIN 83707976123 Active Indigo Active MONOHYD MACRO capsule MONOHYD MACRO Yokum 100 MG CAPS BID for THERMO PROCESSOR UTI JANUVIA 100 MG 1 tablet SITAGLIPTIN 14083468253 Active Indigo Active TABS by mouth PHOSPHATE Yokum daily THERMO PROCESSOR METFORMIN HCL 2 METFORMIN HCL 05084298255 Active Indigo Active 500 MG TB24 tablets Yokum by mouth THERMO PROCESSOR twice daily TRAMADOL HCL 50 1/2 po TRAMADOL HCL 24577246833 No Jillin Active MG TABS tid with Longer a ES Active Frazel Tylenol l THERMO PROCESSOR prn pain VYVANSE 20 MG 1 tablet LISDEXAMFETAMIN 69913738513 No Jillin Active ORAL CAPS daily E DIMESYLATE Longer a for Active Frazel binge l THERMO PROCESSOR eating disorder LASIX 20 MG TAB 2 tablet FUROSEMIDE 93008081209 Active Joseph Active by mouth W Farooq daily DO CELEBREX 200 MG 1 tablet CELECOXIB 83020406209 Active Joseph Active CAPS by mouth W Farooq daily DO with meals PREDNISONE 20 2 PREDNISONE 97748918659 No Joseph Active MG TAB tablets Longer W Farooq today, Active DO then 1 tablet days 2-4 DIFLUCAN 100 MG 1 tablet FLUCONAZOLE 88588835106 No Joseph Active TAB by mouth Longer W Farooq daily x Active DO 3 days AMARYL 1 MG 1 tablet GLIMEPIRIDE 60998845074 Active Joseph Active ORAL TABS orally W Farooq twice DO daily DIFLUCAN 100 MG 1 tablet FLUCONAZOLE 56960436884 No Joseph Active TABS by mouth Longer W Farooq every Active DO other day for 2 doses ZOFRAN 4 MG 1 po ONDANSETRON HCL 53299315936 Active Joseph Active TABS q6hr PRN W Farooq Nausea DO PREDNISONE 20 2 tabs PREDNISONE 21634859921 No Joseph Active MG TAB daily Longer W Farooq for 3 Active DO days, 1 tab daily for 3 days, 1/2 tab daily for 2 days AMOXICILLIN 500 2 po BID AMOXICILLIN 72366285771 No Maite C Active MG CAPS x 10 Longer Madril days Active PhD LISINOPRIL 20 1 tablet LISINOPRIL 87296321898 No Maite C Active MG TABS by mouth Longer Madril daily Active PhD POTASSIUM 2 POTASSIUM 51855882776 No Joseph Active CHLORIDE CR 10 capsule CHLORIDE Longer W Farooq MEQ CPCR by mouth Active DO daily SPIRONOLACTONE 1 tablet SPIRONOLACTONE 01002440487 No Joseph Active 25 MG TAB by mouth Longer W Farooq daily Active DO METFORMIN HCL 1 METFORMIN HCL 15139905277 No Joseph Active 500 MG TABS tablet Longer W [place] by mouth Active DO twice daily AMARYL 1 MG 1 tab GLIMEPIRIDE 71610697613 No Joseph Active TABS twice Longer W Farooq daily Active DO PHENTERMINE HCL 1 po q PHENTERMINE HCL 65478749242 No Joseph Active 37.5 MG TABS am for Longer W Farooq wt. loss Active DO PROMETHAZINE 1 tab by PROMETHAZINE 08453673927 No Joseph Active HCL 25 MG TABS mouth HCL Longer W Far[place]q every 6 Active DO hours as needed CIPROFLOXACIN Take one CIPROFLOXACIN 78962085697 No Joseph Active HCL 500 MG TABS (1) HCL Longer W Farooq tablet Active DO by mouth twice a day ABILIFY 5 MG one p.o. ARIPIPRAZOLE 29495299149 No Joseph Active TABS q. day Longer W Farooq Active DO HYDROCHLOROTHIA 2 tabs HYDROCHLOROTHIA 26938455829 No Joseph Active ZIDE 25 MG TABS every ZIDE Longer W Farooq morning Active DO ABILIFY 2 MG 1 po q ARIPIPRAZOLE 84359757553 No Joseph Active TABS hs for Longer W Farooq major Active DO depressi on ADIPEX-P 37.5 1/2 tab PHENTERMINE HCL 82289114005 No Casey Active MG CAPS po q am Longer [place] for Active PA weight loss CIPRO 500 MG 1 tablet CIPROFLOXACIN 93255918645 No Casey Active TAB by mouth HCL Longer [place] twice Active PA daily NECON 1/35 (28) 1 po NORETHINDRONE-E 47090577280 No Casey Active 1-35 MG-MCG daily TH ESTRADIOL Longer Leonarda TABS Active PA TRAMADOL HCL 50 1 po tid TRAMADOL HCL 77262695600 No Casey Active MG TABS with ES Longer [place] Tylenol Active PA FLUCONAZOLE 100 one p.o. FLUCONAZOLE 86469011774 No Casey Active MG TABS q. day 2 Longer [place] days Active PA POTASSIUM 1 POTASSIUM 02535778153 No Casey Active CHLORIDE CR 10 capsule CHLORIDE Longer MEQ CPCR by mouth Active PA daily IMIPRAMINE HCL Take 6 IMIPRAMINE HCL 09795229492 Active Joseph Active 50 MG TABS tablets W [place]q by mouth DO at bedtime DIFLUCAN 100 MG 1 tablet FLUCONAZOLE 20036909124 No Joseph Active TAB by mouth Longer W Farooq daily Active DO METOPROLOL 1/2 tab METOPROLOL 89960823760 Active Joseph Active TARTRATE 25 MG po bid TARTRATE W Farooq TABS DO VERAPAMIL HCL 2 po bid VERAPAMIL HCL 88157187335 Active Joseph Active CR 120 MG TAB W Farooq CR DO PERMETHRIN 5 % apply PERMETHRIN 88408046801 No Joseph Active CREA neck to Longer W Farooq toes Active DO tonight and then rinse off in morning. repeat at 7 days SEROQUEL XR 50 one p.o. QUETIAPINE 65646735612 No Joseph Active MG [id number] q. FUMARATE Longer W Faroqo evening Active DO TRAMADOL HCL 50 1-2 TRAMADOL HCL 99748579595 No Joseph Active MG TABS tablets Longer W Farooq every Active DO 6-8 hours as needed for pain ALPRAZOLAM 3 MG one p.o. ALPRAZOLAM 89548716564 Active Indigo Active [id number] q.h.s. Yokum THERMO PROCESSOR ALPRAZOLAM XR Take 1 ALPRAZOLAM 67520016202 No Joseph Active [id number] tablet [id number] Longer W Far[place]q by mouth Active DO at bedtime DIFLUCAN 100 MG 1 tablet FLUCONAZOLE 56319800473 No Joseph Active TAB by mouth Longer W Farooq daily Active DO AMBIEN 10 MG 1 tab by ZOLPIDEM 22631912770 Active Joseph Active TAB mouth at TARTRATE W Farooq bedtime DO as needed for sleep DIFLUCAN 100 1 tablet DIFLUCAN 554861 FLUCONAZOLE Inactive MG TAB by mouth 100 MG TAB daily ALPRAZOLAM Take 1 ALPRAZOLAM ALPRAZOLAM Inactive XR [id number] tablet by XR [id number] mouth at [id number] bedtime TRAMADOL HCL 1-2 TRAMADOL 191060 TRAMADOL HCL Inactive 50 MG TABS tablets HCL 50 MG every 6-8 TABS hours as needed for pain SEROQUEL XR one p.o. SEROQUEL XR QUETIAPINE Inactive 50 MG q. evening 50 MG FUMARATE [id number] PERMETHRIN 5 apply neck PERMETHRIN 998555 PERMETHRIN Inactive % CREA to toes 5 [...] days TRAMADOL HCL 1 po tid TRAMADOL 957980 TRAMADOL HCL Inactive 50 MG TABS with ES HCL 50 MG Tylenol TABS NECON 1/35 1 po daily NECON 1/35 NORETHINDRONE- Inactive (28) 1-35 (28) 1-35 ETH ESTRADIOL MG-MCG TABS MG-MCG TABS CIPRO 500 MG 1 tablet CIPRO 500 681667 CIPROFLOXACIN Inactive TAB by mouth MG TAB HCL twice daily ADIPEX-P 1/2 tab po ADIPEX-P 220297 PHENTERMINE Inactive 37.5 MG CAPS q am for 37.5 MG HCL weight CAPS loss ABILIFY 2 MG 1 po q hs ABILIFY 2 366866 ARIPIPRAZOLE Inactive TABS for major MG TABS depression HYDROCHLOROT 2 tabs HYDROCHLORO 021223 HYDROCHLOROTHI Inactive HIAZIDE 25 every THIAZIDE 25 AZIDE MG TABS morning MG TABS ABILIFY 5 MG one p.o. ABILIFY 5 551556 ARIPIPRAZOLE Inactive TABS q. day MG TABS CIPROFLOXACI Take one CIPROFLOXAC 222758 CIPROFLOXACIN Inactive N HCL 500 MG (1) tablet IN HCL 500 HCL TABS by mouth MG TABS twice a day PROMETHAZINE 1 tab by PROMETHAZIN 054134 PROMETHAZINE Inactive HCL 25 MG mouth E HCL 25 MG HCL TABS every 6 TABS hours as needed PHENTERMINE 1 po q am PHENTERMINE 723531 PHENTERMINE Inactive HCL 37.5 MG for wt. HCL 37.5 MG HCL TABS loss TABS AMARYL 1 MG 1 tab AMARYL 1 MG 766516 GLIMEPIRIDE Inactive TABS twice TABS daily METFORMIN 1 tablet METFORMIN 662978 METFORMIN HCL Inactive HCL 500 MG by mouth HCL 500 MG TABS twice TABS daily SPIRONOLACTO 1 tablet SPIRONOLACT 286610 SPIRONOLACTONE Inactive NE 25 MG TAB by mouth ONE 25 MG daily TAB POTASSIUM 2 capsule POTASSIUM POTASSIUM Inactive CHLORIDE CR by mouth CHLORIDE CR CHLORIDE 10 MEQ CPCR daily 10 MEQ CPCR LISINOPRIL 1 tablet LISINOPRIL 599470 LISINOPRIL Inactive 20 MG TABS by mouth 20 MG TABS daily DIFLUCAN 100 1 tablet DIFLUCAN 799873 FLUCONAZOLE Inactive MG TABS by mouth 100 MG TABS every other day for 2 doses DIFLUCAN 100 1 tablet DIFLUCAN 123076 FLUCONAZOLE Inactive MG TAB by mouth 100 MG TAB daily x 3 days PREDNISONE 2 tablets PREDNISONE 340826 PREDNISONE Inactive 20 MG TAB today, 20 MG TAB then 1 tablet days 2-4 VYVANSE 20 1 tablet VYVANSE 20 LISDEXAMFETAMI Inactive MG ORAL CAPS daily for MG ORAL NE DIMESYLATE binge CAPS eating disorder TRAMADOL HCL 1/2 po tid TRAMADOL 200980 TRAMADOL HCL Inactive 50 MG TABS with ES HCL 50 MG Tylenol TABS prn pain AMOXICILLIN 2 po BID x AMOXICILLIN 627627 AMOXICILLIN Inactive 500 MG CAPS 10 days 500 MG CAPS PREDNISONE 2 tabs PREDNISONE 542498 PREDNISONE Inactive 20 MG TAB daily for [...] HGBA1C - Chemistry sodium, serum 140 mmol/L 350-146 6568/04/13 potassium, serum 3.9 mmol/L 3.5-5.2 chloride, serum [...] 198 10^3/MM^3 10*3/mm3 142-424 Lab Report: Chlamydia/GC APTIMA/[id number] - Lab chlamydia DNA probe NOT DETECTED NOT DETECTED Lab Report: Chlamydia/GC APTIMA/[id number] - Microbiology Neisseria gonorrhoeae DNA probe NOT DETECTED NOT DETECTED Lab Report: Comp. Metabolic Panel, Lipid Panel - Chemistry sodium, serum 136 mmol/L 745-162 4407/01/04 carbon dioxide, venous blood 27.0 mmol/L 21.0-32.0 potassium, serum 4.6 mmol/L 3.5-5.2 chloride, serum 98 mmol/L 98-107 blood glucose 174 mg/dL 65-110 urea nitrogen, blood 12 mg/dL 7-18 creatinine, serum 0.78 mg/dL 0.55-1.30 alanine aminotransferase (SGPT), serum 65 U/L 12-78 aspartate aminotransferase (SGOT), serum 34 U/L 15-37 calcium, serum 8.9 mg/dL 8.5-10.1 bilirubin, serum, total 0.40 mg/dL 0.00-1.00 cholesterol, serum 219 mg/dL 857-854 1503/01/04 triglyceride, serum, fasting 214 mg/dL 30-200 HDL [...] mg/g mg/g{creat} 0-29 sodium, serum 140 mmol/L 848-938 6262/07/21 potassium, serum 3.9 mmol/L 3.5-5.2 chloride, serum [...] 142-424 Encounters Code Encounter Date Provider Facility CPT-33590 Level 3 Est. [facility] CPT-83185 Level 3 Est. Patient [facility] 14:42:12 CDT -[facility] CPT-85753 Level 3 Est. Patient [facility] 22:18:20 CDT -[facility] CPT-53808 Level 3 Est. Patient [facility] 16:46:04 CDT -[facility] CPT-11391 Level 3 Est. Patient [facility] 15:39:53 CDT -[facility] CPT-15357 Level 3 Est. Patient Maite Sanchez MD PhD [facility] 13:33:34 CDT -[facility] CPT-20628 Level 3 Est. Patient [facility] 11:37:08 CDT -[facility] CPT-81612 Level 3 Est. Patient [facility] 17:13:29 HAY BALER -[facility] CPT-07011 Level 3 Est. Patient [facility] 18:42:44 CDT CPT-72181 Level 3 Est. Patient [facility] 16:25:39 CDT CPT-43811 Level 3 Est. Patient Casey Brower [facility] 09:52:45 CDT -[facility] CPT-98932 Level 3 Est. Patient Joseph Pineda [facility] 11:03:29 HAY BALER -[facility] CPT-24423 Level 3 Est. Patient Joseph Edwin [facility] 11:03:08 HAY BALER -[facility] CPT-68263 Level 3 Est. Patient [place] Edwin [facility] 14:33:31 CDT -RHC CPT-77645 Level 3 Est. Patient [facility] 17:05:02 HAY BALER -[facility] CPT-21307 Level 3 Est. Patient [facility] 17:48:06 HAY BALER -[facility] CPT-99562 Level 3 Est. Patient [facility] 14:59:22 HAY BALER -[facility]HC CPT-90473 Level 3 Est. Patient Joseph Edwin [facility] - 21:45:56 HAY BALER Edgar [facility] CPT-61963 Level 3 Est. Patient [facility] 21:29:50 CDT -RHC CPT-83354 Level 3 Est. Patient Joseph Pineda [facility] 12:41:09 CDT -RHC Procedures Code Procedure Name Date Entry Date Standard Description CPT-OV Office Visit 17:39:05 CDT CPT-OV Office Visit 15:19:50 CDT CPT-11840 Sono transvag pelvis non OB uterus ovaries cervix 18:04:34 CDT CPT-07964 Venipuncture Draw Fee 08:55:49 HAY BALER
--- OUTSIDE RECORDS SUMMARY | 2016-11-20 14:16 | External Medical Summary | Clinical Summary ---
:1965 Author Organization [facility] [place] Address [address] [address] Phone Allergies, Adverse Reactions, Alerts Allergy Name Reaction Description Start Date Severity Status Provider NKDA Critical Active Indigo Yonickieum LOSS PREVENTION MANAGER NKDA Critical No Longer Indigo Yokum LOSS PREVENTION MANAGER Active NKDA Critical Inactive Adrianna Elder [...] Resolved Indigo Other malaise 05/24 07/02 Yokum LOSS PREVENTION MANAGER and fatigue SLEEP APNEA, 327.23 Active Joseph Pineda Obstructive OBSTRUCTIVE, 06/27 06/27 Farooq DO sleep apnea MILD (adult) (pediatric) OVERWEIGHT 278.02 Inactive Joseph Pineda Overweight 06/28 06/28 Farooq DO Obesity 278.00 Active Indigo Obesity, 06/28 10/18 Yokum LOSS PREVENTION MANAGER unspecified OTH GENERAL V70.3 Resolved Maite Gutierrez Other general MEDICAL Laura ONEAL medical EXAMINATION PhD examination for ADMIN PURPOSES administrative purposes OTHER ABNORMAL 790.29 Resolved Maite C Other abnormal GLUCOSE 05/20 Laura ONEAL glucose PhD ACUTE 466.0 Resolved Maite C Acute BRONCHITIS 09/02 Laura ONEAL bronchitis PhD DEPENDENT 782.3 Resolved Indigo Edema EDEMA, LEGS, 10/29 10/18 Yokum LOSS PREVENTION MANAGER BILATERAL HYPOKALEMIA, 276.8 Resolved Indigo Hypopotassemia MILD 10/29 07/02 Youm LOSS PREVENTION MANAGER Diabetes, Type 250.00 Inactive Joseph Pineda Diabetes 2 06/27 06/27 Farooq DO mellitus without mention of complication, type II or unspecified type, not stated as uncontrolled Diabetes 250.02 Resolved Indigo Diabetes mellitus, type 06/27 LOSS PREVENTION MANAGER mellitus II, without mention uncontrolled of [...] Resolved Indigo Routine gynecological 12/14 07/02 Yo LOSS PREVENTION MANAGER gynecological examination examination Postmenopausal 627.1 Resolved Indigo Postmenopausal bleeding 12/14 LOSS PREVENTION MANAGER bleeding Screening for V76.51 Resolved Indigo Screening for malignant 12/26 07/02 Yokum LOSS PREVENTION MANAGER malignant neoplasms of neoplasms of colon colon Insomnia, 307.42 Active Indigo 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 LOSS PREVENTION MANAGER disorder of initiating or maintaining sleep Establish care V68.89 Resolved Indigo Encounters for or get 01/16 07/02 Yo LOSS PREVENTION MANAGER other specified acquainted administrative visit purpose Weakness, left 342.90 Resolved Indigo Hemiplegia, side of body 06/20 10/18 Yokum LOSS PREVENTION MANAGER unspecified, affecting unspecified side TIA 435.9 Active Indigo Unspecified 06/20 07/02 Yokum LOSS PREVENTION MANAGER transient cerebral ischemia Knee pain, 719.46 Active Indigo Pain in joint bilateral 06/20 10/18 Yokum LOSS PREVENTION MANAGER involving lower leg Bronchitis 490 Resolved Indigo Bronchitis, not 07/23 10/18 Yokum LOSS PREVENTION MANAGER specified as acute or chronic Diabetes 357.2 Active Maliheh Polyneuropathy mellitus, 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 Knee pain, 719.46 Active Indigo Pain in joint right 06/20 10/18 Yokum LOSS PREVENTION MANAGER involving lower leg Jesi 112.3 Active Indigo Candidiasis of intertrigo 10/09 10/18 Yokum LOSS PREVENTION MANAGER skin and nails Hyperlipidemia 272.4 Active Anne Other and 12/24 12/24 Neil unspecified RMA hyperlipidemia Incontinence, 788.33 Active Indigo Mixed mixed, 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 LOSS PREVENTION MANAGER incontinence urge/stress (female) (male) Female stress 625.6 Active Yury Monaco Stress incontinence 01/03 01/03 Cy patel MD female SCABIES ICD-133.0 Inactive Maite Sanchez PhD FATIGUE ICD-780.79 Inactive Indigo Yokum LOSS PREVENTION MANAGER OTH GENERAL ICD-V70.3 Inactive Maite Sanchez MEDICAL MD PhD EXAMINATION ADMIN PURPOSES OTHER ABNORMAL ICD-790.29 Inactive Maite Sanchez GLUCOSE PhD ACUTE BRONCHITIS ICD-466.0 Inactive Maite Sanchez PhD DEPENDENT EDEMA, ICD-782.3 Inactive Indigo Yokum LEGS, BILATERAL LOSS PREVENTION MANAGER HYPOKALEMIA, MILD ICD-276.8 Inactive Indigo Yokum LOSS PREVENTION MANAGER Diabetes mellitus, ICD-250.02 Inactive Indigo Yokum type II, LOSS PREVENTION MANAGER uncontrolled ABNORMAL VAGINAL ICD-626.9 Inactive Maite Sanchez BLEEDING PhD Routine ICD-V72.31 Inactive Indigo Yokum gynecological LOSS PREVENTION MANAGER examination Postmenopausal ICD-627.1 Inactive Indigo Yokum 2015 bleeding LOSS PREVENTION MANAGER Screening for ICD-V76.51 Inactive Indigo Yokum 2015 malignant LOSS PREVENTION MANAGER neoplasms of colon Establish care or ICD-V68.89 Inactive Indigo Yokum get acquainted LOSS PREVENTION MANAGER visit Weakness, left ICD-342.90 Inactive Indigo Yokum side of body LOSS PREVENTION MANAGER Bronchitis ICD-490 Inactive Indigo Yokum LOSS PREVENTION MANAGER Sinusitis, ICD-461.1 Inactive Ismael Coyne frontal, acute Amandeep ONAEL Laryngitis, acute ICD-464.00 Inactive Ismael Coyne Amandeep ONEAL Medication List Medication Instructions Start Stop Generic NDC Status Provider Patient Date Date Name Instruction METFORMIN 2 tablets METFORMIN 45041444581 No Indigo Active HCL 500 MG by mouth HCL Longer Yokum TB24 twice Active LOSS PREVENTION MANAGER daily AMARYL 1 MG 1 tablet GLIMEPIRID 25486151011 No Indigo Active ORAL TABS orally E Longer Yokum twice Active LOSS PREVENTION MANAGER daily NYSTATIN apply to NYSTATIN 88623208670 Active Indigo Active 245130 rash TID Yokum UNIT/GM PRN LOSS PREVENTION MANAGER CREA TROKENDI XR 2 tab TOPIRAMATE 97191981702 Active Malihe Active 100 MG ORAL daily h [id number] Ziglar i STAY CUTTER METOPROLOL 1 tab po METOPROLOL 34727138939 Active Indigo Active TARTRATE 25 bid TARTRATE Yokum MG TABS LOSS PREVENTION MANAGER AZITHROMYCI 2 po qd x AZITHROMYC 09586684624 No Jillin Active N 250 MG 1 day, IN Longer a TABS then 1 po Active Frazel qd x 4 l LOSS PREVENTION MANAGER days PREDNISONE 2 pills PREDNISONE 63544798490 No Jillin Active 20 MG TAB daily x 4 Longer a days Active Frazel l LOSS PREVENTION MANAGER PIOGLITAZON take one PIOGLITAZO 08149302388 Active Malihe Active E HCL 30 MG a day NE HCL h ORAL TABS Ziglar i STAY CUTTER JANUVIA 100 1 tablet SITAGLIPTI 07614316837 No Indigo Active MG TABS by mouth N Longer Yokum daily PHOSPHATE Active LOSS PREVENTION MANAGER ATORVASTATI 1 pill by ATORVASTAT 93847980554 Active Indigo Active N CALCIUM mouth IN CALCIUM Yokum 10 MG TABS nightly, LOSS PREVENTION MANAGER for cholester ol ASPIRIN 81 1 po qd ASPIRIN 43907797839 Active Indigo Active MG ORAL Yokum TABS LOSS PREVENTION MANAGER NITROFURANT One NITROFURAN 61710581576 No Indigo Active OIN MONOHYD capsule TOIN Longer Yokum MACRO 100 BID for MONOHYD Active LOSS PREVENTION MANAGER MG CAPS UTI MACRO TRAMADOL 1/2 po TRAMADOL 62592720766 No Jillin Active HCL 50 MG tid with HCL Longer a TABS ES Active Frazel Tylenol l LOSS PREVENTION MANAGER prn pain VYVANSE 20 1 tablet LISDEXAMFE 06839599262 No Jillin Active MG ORAL daily for TAMINE Longer a CAPS binge DIMESYLATE Active Frazel eating l LOSS PREVENTION MANAGER disorder LASIX 20 MG 2 tablet FUROSEMIDE 63533807310 Active Indigo Active TAB by mouth Yokum daily LOSS PREVENTION MANAGER CELEBREX 1 tablet CELECOXIB 36475833405 Active Indigo Active 200 MG CAPS by mouth Yokum daily LOSS PREVENTION MANAGER with meals PREDNISONE 2 tablets PREDNISONE 42397901289 No Joseph Active 20 MG TAB today, Longer W Farooq then 1 Active DO tablet days 2-4 DIFLUCAN 1 tablet FLUCONAZOL 28874248755 No Joseph Active 100 MG TAB by mouth E Longer W Farooq daily x 3 Active DO days DIFLUCAN 1 tablet FLUCONAZOL 74915799666 No Joseph Active 100 MG TABS by mouth E Longer W Farooq every Active DO other day for 2 doses ZOFRAN 4 MG 1 po q6hr ONDANSETRO 08381323217 Active Joseph Active TABS PRN N HCL W Farooq Nausea DO PREDNISONE 2 tabs PREDNISONE 11860604394 No Joseph Active 20 MG TAB daily for Longer W Farooq 3 days, 1 Active DO tab daily for 3 days, 1/2 tab daily for 2 days AMOXICILLIN 2 po BID AMOXICILLI 35334525071 No Maite C Active 500 MG CAPS x 10 days N Longer Madril Active PhD LISINOPRIL 1 tablet LISINOPRIL 84161484462 No Maite C Active 20 MG TABS by mouth Longer Madril daily Active PhD POTASSIUM 2 capsule POTASSIUM 00891131229 No Joseph Active CHLORIDE CR by mouth CHLORIDE Longer W Farooq 10 MEQ CPCR daily Active DO SPIRONOLACT 1 tablet SPIRONOLAC 02572278644 No Joseph Active ONE 25 MG by mouth TONE Longer W Farooq TAB daily Active DO METFORMIN 1 tablet METFORMIN 70887681653 No Joseph Active HCL 500 MG by mouth HCL Longer W Farooq TABS twice Active DO daily AMARYL 1 MG 1 tab GLIMEPIRID 16182511524 No Joseph Active TABS twice E Longer W Farooq daily Active DO PHENTERMINE 1 po q am PHENTERMIN 74228201574 No Joseph Active HCL 37.5 MG for wt. E HCL Longer W Farooq TABS loss Active DO PROMETHAZIN 1 tab by PROMETHAZI 30427571315 No Joseph Active E HCL 25 MG mouth NE HCL Longer W Farooq TABS every 6 Active DO hours as needed CIPROFLOXAC Take one CIPROFLOXA 83462997597 No Joseph Active IN HCL 500 (1) DELORES HCL Longer W Farooq MG TABS tablet by Active DO mouth twice a day ABILIFY 5 one p.o. ARIPIPRAZO 47059306898 No Joseph Active MG TABS q. day LE Longer W Farooq Active DO HYDROCHLORO 2 tabs HYDROCHLOR 92219295238 No Joseph Active THIAZIDE 25 every OTHIAZIDE Longer W Farooq MG TABS morning Active DO ABILIFY 2 1 po q hs ARIPIPRAZO 48815432583 No Joseph Active MG TABS for major LE Longer W Farooq depressio Active DO n ADIPEX-P 1/2 tab PHENTERMIN 76990823746 No Casey Active 37.5 MG po q am E HCL Longer Nellis CAPS for Active PA weight loss CIPRO 500 1 tablet CIPROFLOXA 66159217665 No Casey Active MG TAB by mouth DELORES HCL Longer Leonarda twice Active PA daily NECON 1/35 1 po NORETHINDR 90292401782 No Casey Active (28) 1-35 daily ONE-ETH Longer Nellis MG-MCG TABS ESTRADIOL Active PA TRAMADOL 1 po tid TRAMADOL 95010181805 No Casey Active HCL 50 MG with ES HCL Longer Nellis TABS Tylenol Active PA FLUCONAZOLE one p.o. FLUCONAZOL 58943996961 No Casey Active 100 MG TABS q. day 2 E Longer Nellis days Active PA POTASSIUM 1 capsule POTASSIUM 10342651677 No Casey Active CHLORIDE CR by mouth CHLORIDE Longer 10 MEQ CPCR daily Active PA IMIPRAMINE Take 6 IMIPRAMINE 53430389232 Active Indigo Active HCL 50 MG tablets HCL Yokum TABS by mouth LOSS PREVENTION MANAGER at bedtime DIFLUCAN 1 tablet FLUCONAZOL 66112648005 No Joseph Active 100 MG TAB by mouth E Longer W Farooq daily Active DO VERAPAMIL 2 po bid VERAPAMIL 29288856851 Active Indigo Active HCL CR 120 HCL Yokum MG TAB CR LOSS PREVENTION MANAGER PERMETHRIN apply PERMETHRIN 08074294598 No Joseph Active 5 % CREA neck to Longer W Farooq toes Active DO tonight and then rinse off in morning. repeat at 7 days SEROQUEL XR one p.o. QUETIAPINE 52478232821 No Joseph Active 50 MG q. FUMARATE Longer W Farooq [id number] evening Active DO TRAMADOL 1-2 TRAMADOL 18124386155 No Joseph Active HCL 50 MG tablets HCL Longer W Farooq TABS every 6-8 Active DO hours as needed for pain ALPRAZOLAM one p.o. ALPRAZOLAM 11582834803 Active Indigo Active 3 MG q.h.s. Yokum [id number] LOSS PREVENTION MANAGER ALPRAZOLAM Take 1 ALPRAZOLAM 66519455744 No Joseph Active XR tablet by [id number] Longer W Farooq [id number] mouth at Active DO bedtime DIFLUCAN 1 tablet FLUCONAZOL 25566918046 No Joseph Active 100 MG TAB by mouth E Longer W Farooq daily Active DO AMBIEN 10 1 tab by ZOLPIDEM 34927928707 Active Indigo Active MG TAB mouth at TARTRATE Yokum bedtime LOSS PREVENTION MANAGER as needed for sleep DIFLUCAN 100 1 tablet DIFLUCAN 661406 FLUCONAZOLE Inactive MG TAB by mouth 100 MG TAB daily ALPRAZOLAM Take 1 ALPRAZOLAM ALPRAZOLAM Inactive XR [id number] tablet by XR [id number] mouth at [id number] bedtime TRAMADOL HCL 1-2 TRAMADOL 579574 TRAMADOL HCL Inactive 50 MG TABS tablets HCL 50 MG every 6-8 TABS hours as needed for pain SEROQUEL XR one p.o. SEROQUEL XR QUETIAPINE Inactive 50 MG q. 50 MG FUMARATE [id number] evening [id number] PERMETHRIN 5 apply PERMETHRIN 887077 PERMETHRIN Inactive % CREA neck to 5 % CREA toes tonight and then rinse off in morning. repeat at 7 days DIFLUCAN 100 1 tablet DIFLUCAN 536250 FLUCONAZOLE Inactive MG TAB by mouth 100 MG TAB daily POTASSIUM 1 capsule POTASSIUM POTASSIUM Inactive CHLORIDE CR by mouth CHLORIDE CR CHLORIDE 10 MEQ CPCR daily 10 MEQ CPCR FLUCONAZOLE one p.o. FLUCONAZOLE 172518 FLUCONAZOLE Inactive 100 MG TABS q. day 2 100 MG TABS days TRAMADOL HCL 1 po tid TRAMADOL 870929 TRAMADOL HCL Inactive 50 MG TABS with ES HCL 50 MG Tylenol TABS NECON 1/35 1 po NECON 1/35 NORETHINDRONE- Inactive (28) 1-35 daily (28) 1-35 ETH ESTRADIOL MG-MCG TABS MG-MCG TABS CIPRO 500 MG 1 tablet CIPRO 500 905526 CIPROFLOXACIN Inactive TAB by mouth MG TAB HCL twice daily ADIPEX-P 1/2 tab ADIPEX-P 872577 PHENTERMINE Inactive 37.5 MG CAPS po q am 37.5 MG HCL for CAPS weight loss ABILIFY 2 MG 1 po q hs ABILIFY 2 408813 ARIPIPRAZOLE Inactive TABS for major MG TABS depressio n HYDROCHLOROT 2 tabs HYDROCHLORO 310542 HYDROCHLOROTHI Inactive HIAZIDE 25 every THIAZIDE 25 AZIDE MG TABS morning MG TABS ABILIFY 5 MG one p.o. ABILIFY 5 337538 ARIPIPRAZOLE Inactive TABS q. day MG TABS CIPROFLOXACI Take one CIPROFLOXAC 450259 CIPROFLOXACIN Inactive N HCL 500 MG (1) IN HCL 500 HCL TABS tablet by MG TABS mouth twice a day PROMETHAZINE 1 tab by PROMETHAZIN 645615 PROMETHAZINE Inactive HCL 25 MG mouth E HCL 25 MG HCL TABS every 6 TABS hours as needed PHENTERMINE 1 po q am PHENTERMINE 853230 PHENTERMINE Inactive HCL 37.5 MG for wt. HCL 37.5 MG HCL TABS loss TABS AMARYL 1 MG 1 tab AMARYL 1 MG 411119 GLIMEPIRIDE Inactive TABS twice TABS daily METFORMIN 1 tablet METFORMIN 386259 METFORMIN HCL Inactive HCL 500 MG by mouth HCL 500 MG TABS twice TABS daily SPIRONOLACTO 1 tablet SPIRONOLACT 657126 SPIRONOLACTONE Inactive NE 25 MG TAB by mouth ONE 25 MG daily TAB POTASSIUM 2 capsule POTASSIUM POTASSIUM Inactive CHLORIDE CR by mouth CHLORIDE CR CHLORIDE 10 MEQ CPCR daily 10 MEQ CPCR LISINOPRIL 1 tablet LISINOPRIL 026322 LISINOPRIL Inactive 20 MG TABS by mouth 20 MG TABS daily DIFLUCAN 100 1 tablet DIFLUCAN 19760111 FLUCONAZOLE Inactive MG TABS by mouth 100 MG TABS every other day for 2 doses DIFLUCAN 100 1 tablet DIFLUCAN 703859 FLUCONAZOLE Inactive MG TAB by mouth 100 MG TAB daily x 3 days PREDNISONE 2 tablets PREDNISONE 906416 PREDNISONE Inactive 20 MG TAB today, 20 MG TAB then 1 tablet days 2-4 VYVANSE 20 1 tablet VYVANSE 20 LISDEXAMFETAMI Inactive MG ORAL CAPS daily for MG ORAL NE DIMESYLATE binge CAPS eating disorder TRAMADOL HCL 1/2 po TRAMADOL 215945 TRAMADOL HCL Inactive 50 MG TABS tid with HCL 50 MG ES TABS Tylenol prn pain JANUVIA 100 1 tablet JANUVIA 100 SITAGLIPTIN Inactive MG TABS by mouth MG TABS PHOSPHATE daily AMARYL 1 MG 1 tablet AMARYL 1 MG 925468 GLIMEPIRIDE Inactive ORAL TABS orally ORAL TABS twice daily METFORMIN 2 tablets METFORMIN METFORMIN HCL Inactive HCL 500 MG by mouth HCL 500 MG TB24 twice TB24 daily AMOXICILLIN 2 po BID AMOXICILLIN 372502 AMOXICILLIN Inactive 500 MG CAPS x 10 days 500 MG CAPS PREDNISONE 2 tabs PREDNISONE 366853 PREDNISONE Inactive 20 MG TAB daily for 20 MG TAB 3 days, 1 tab daily for 3 days, 1/2 tab daily for 2 days NITROFURANTO One NITROFURANT 9209110 NITROFURANTOIN Inactive IN MONOHYD capsule OIN MONOHYD MONOHYD MACRO MACRO 100 MG BID for MACRO 100 CAPS UTI MG CAPS PREDNISONE 2 pills PREDNISONE 865235 PREDNISONE Inactive 20 MG TAB daily x 4 20 MG TAB days AZITHROMYCIN 2 po qd x AZITHROMYCI 5857625 AZITHROMYCIN Inactive 250 MG TABS 1 day, [...] HGBA1C - Chemistry sodium, serum 140 mmol/L 686-649 2236/06/03 urea nitrogen, blood 14 mg/dL 7-18 creatinine, [...] 12 mg/dL 7-18 sodium, serum 136 mmol/L 290-948 2749/01/04 creatinine, serum 0.78 mg/dL 0.55-1.30 alanine aminotransferase (SGPT), serum 65 U/L 12-78 aspartate aminotransferase (SGOT), serum 34 U/L 15-37 calcium, serum 8.9 mg/dL 8.5-10.1 bilirubin, serum, total 0.40 mg/dL 0.00-1.00 cholesterol, serum 219 mg/dL 423-194 4427/01/04 triglyceride, serum, fasting 214 mg/dL 30-200 HDL cholesterol, serum 39 mg/dL 32-96 LDL cholesterol, serum 137 mg/dL 0-130 Lab Report: Lipid Panel - Chemistry cholesterol, serum 157 mg/dL 356-625 4349/08/22 triglyceride, serum, fasting 215 mg/dL 30-200 HDL [...] mg/dL Encounters Code Encounter Date Provider Facility CPT-57982 Level 4 New Patient Yury Benoit MD [facility] 15:17:12 CDT CPT-07932 Level 3 Est. Patient [facility] - 13:37:46 CDT [place] CPT-45350 Level 4 Est. Patient [facility] - 10:01:06 CDT [place] CPT-93036 Level 3 Est. Patient [facility] 08:58:07 CDT [facility] CPT-31241 Level 3 Est. [facility] CPT-55740 Level 4 Est. 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 Patient [facility] 09:51:54 BAKERY WORKER CPT-67410 Level 3 Est. Patient [facility] 18:59:38 CDT CPT-25419 Level 3 Est. Patient Joseph Pineda [facility] 14:42:12 CDT -[facility] CPT-60442 Level 3 Est. Patient Joseph Pineda [facility] 22:18:20 CDT -[facility] CPT-40526 Level 3 Est. Patient [facility] 16:46:04 CDT -[facility] CPT-20741 Level 3 Est. Patient [facility] 15:39:53 CDT -[facility] CPT-74801 Level 3 Est. Patient Maite Sanchez MD [facility] 13:33:34 CDT -[facility]HC CPT-31369 Level 3 Est. Patient Joseph Pineda [facility] 11:37:08 CDT -[facility] CPT-20233 Level 3 Est. Patient Joseph Pineda [facility] 17:13:29 BAKERY WORKER -RHC CPT-69948 Level 3 Est. Patient Joseph Pineda [facility] 18:42:44 CDT CPT-99211 Level 3 Est. Patient [place] [facility] 16:25:39 CDT CPT-47736 Level 3 Est. Patient Casey Brower [facility] 09:52:45 CDT -R[facility] CPT-97623 Level 3 Est. Patient Joseph Pineda [facility] 11:03:29 BAKERY WORKER -RHC CPT-06469 Level 3 Est. Patient [facility] 11:03:08 BAKERY WORKER -RHC CPT-79593 Level 3 Est. Patient [place] [facility] 14:33:31 CDT -RHC CPT-70787 Level 3 Est. Patient [facility] 17:05:02 BAKERY WORKER -RHC CPT-72507 Level 3 Est. Patient [place] [facility] 17:48:06 BAKERY WORKER -RHC CPT-99688 Level 3 Est. Patient [facility] 14:59:22 BAKERY WORKER -RHC CPT-92449 Level 3 Est. Patient [place] [facility] - 21:45:56 BAKERY WORKER [place] [facility] CPT-81485 Level 3 Est. Patient [facility] 21:29:50 CDT -RHC CPT-22853 Level 3 Est. Patient [facility] 12:41:09 CDT -RHC Procedures Code Procedure Name Date Entry Date Standard Description CPT-A4351 Coloplast Female Cath 09:37:10 CDT CPT-77976 Urine Dip (Floor Use Only) 15:17:13 CDT CPT-33979 Dil F ureth int 15:17:13 CDT CPT-10372 Venipuncture Draw Fee 09:19:08 CDT CPT-46746 Lipid - LAB USE ONLY 09:19:07 CDT CPT-JTINJ Asp/Joint Injection 09:26:49 CDT CPT-75963 Chest 2V Frontal and Lat 14:47:43 CDT CPT-JTINJ Asp/Joint Injection 09:51:53 BAKERY WORKER CPT-OV Office Visit 17:39:05 CDT CPT-OV Office Visit 15:19:50 CDT CPT-98901 Sono transvag pelvis non OB uterus ovaries cervix 18:04:34 CDT CPT-40476 Venipuncture Draw Fee 08:55:49 BAKERY WORKER
--- OUTSIDE RECORDS SUMMARY | 2016-11-20 14:16 | External Medical Summary | Continuity of Care Document ---
:1965 Demographics Preferred Language Unknown Marital Status Unknown Zoroastrian Affiliation Unknown Race Unknown Ethnic Group Unknown Author Organization [facility] Allergies Active Description Code Type Severity Reaction Onset Reported/ Identified Relationship Clinical to Patient Status Yes No known 25488 NK N/A N/A allergies 388 Medications Problems Date Dx Coded Attending Type Code Diagnosis Diagnosed By 05/04/2014 STEPHAN ALVARADO 836.0 TEAR MED MENISC KNEE-CUR 05/04/2014 STEPHAN ALVARADO 959.7 LOWER LEG INJURY NOS 05/04/2014 STEPHAN ALVARADO E927.0 OVEREXERTION, SUDDEN Procedures Code [place] [address] [facility] W/O DYE 05/04/2014 01140 ROUTINE VENIPUNCTURE 05/18/2014 44487 METABOLIC PANEL TOTAL CA 05/18/2014 74473 COMPLETE CBC W/AUTO DIFF WBC 05/18/2014 14269 EXTRACRANIAL STUDY 06/23/2015 Results Test Result Range CBC WITH DIFF - 05/17/14 00:00 BASO% 0.3 % 0-2 EOS% 2.5 % 0-7.0 HCT 39.9 % 36.9-47.0 HGB 13.6 G/DL 12.0-16.0 LYMPH% 31.9 % 20-40 MCH 30.6 PG 27-31 MCHC 34.1 G/DL 33-37 MCV 89.9 FL 81-99 MONO% 9.2 % 0-10.0 MPV 9.8 FL 7.3-10.4 NEUTRO% 56.1 % 40-70 PLT 218 10^3u 130-400 RBC 4.4 10^6u 4.2-5.4 RDW 13.2 % 11.5-15.5 WBC 6.0 10^3u 4.8-10.8 NEUTRO# 3.3 10^3u 1.5-7.5 LYMPH# 1.9 10^3u 0.9-4.0 MONO# 0.6 10^3u 0-0.8 EOS# 0.2 10^3u 0-0.6 BASO# 0.0 10^3u 0-0.1 BMP - 05/17/14 00:00 BCR 15.4 10-20 BUN 14 MG/DL 7-18 CA 9.3 MG/DL 8.4-10.2 CL 101 MEQ/L 98-107 CO2 25.9 MEQ/L 22-28 CREA 0.91 MG/DL 0.6-1.0 EGFR 66 eGFR >=60 GLU 138 MG/DL 70-105 K 4.1 MEQ/L 3.5-5.1 NA 138 MEQ/L 134-145 OSMSC 278.3 MOSML 280-300 Anion Gap 11.1 8-16 HCG QUAL - 12/29/14 00:00 HCG N CBC - 12/29/14 00:00 HCT 39.5 % 36.9-47.0 HGB 13.6 G/DL 12.0-16.0 MCH 30.2 PG 27-31 MCHC 34.4 G/DL 33-37 MCV 87.8 FL 81-99 MPV 10.2 FL 7.3-10.4 PLT 196 10^3u 130-400 RBC 4.5 10^6u 4.2-5.4 RDW 12.9 % 11.5-15.5 WBC 5.8 10^3u 4.8-10.8 CMP - 12/29/14 00:00 ALB 3.8 G/DL 3.5-5 ALP 118 IU/L 25-72 ALT 48 IU/L 12-65 AST 24 IU/L 10-42 BCR 16.1 10-20 BUN 14 MG/DL 7-18 CA 8.6 MG/DL 8.4-10.2 CL 100 MEQ/L 98-107 CO2 27.7 MEQ/L 22-28 CREA 0.87 MG/DL 0.6-1.0 EGFR 69 eGFR >=60 GLU 162 MG/DL 70-105 K 4.1 MEQ/L 3.5-5.1 NA 138 MEQ/L 134-145 OSMSC 279.7 MOSML 280-300 TBIL 0.5 MG/DL 0.1-1.0 TP 7.3 G/DL 6.0-8.3 Albumin/Globulin Ratio 1.1 0-8 Anion Gap 10.3 8-16 TYPE AND SCREEN - 12/29/14 00:00 ABO B ABSCRN N Negative RH P UA - 12/29/14 00:00 PH 6.5 4.5-8.0 SG 1.010 1.003-1.035 UABILI NEGATIVE UABLD NEGATIVE UACOLOR YEL UAGLU NEGATIVE UAKET NEGATIVE UALEUK NEGATIVE UANIT NEGATIVE UAURO 0.2 0-0.2 CLARITY CL PROTEIN NEGATIVE UA WBC NOWBC UA RBC NORBC SQUAMOUS EPITHELIAL CELLS FEW CBC WITH DIFF - 06/06/15 00:00 BASO% 0.3 % 0-2 EOS% 3.4 % 0-7.0 HCT 37.7 % 36.9-47.0 HGB 13.0 G/DL 12.0-16.0 LYMPH% 36.3 % 20-40 MCH 30.7 PG 27-31 MCHC 34.5 G/DL 33-37 MCV 88.9 FL 81-99 MONO% 8.4 % 0-10.0 MPV 9.8 FL 7.3-10.4 NEUTRO% 51.1 % 40-70 PLT 189 10^3u 130-400 RBC 4.2 10^6u 4.2-5.4 RDW 12.7 % 11.5-15.5 WBC 6.0 10^3u 4.8-10.8 NEUTRO# 3.1 10^3u 1.5-7.5 LYMPH# 2.2 10^3u 0.9-4.0 MONO# 0.5 10^3u 0-0.8 EOS# 0.2 10^3u 0-0.6 BASO# 0.0 10^3u 0-0.1 IMM GRANULOCYTE % 0.5 % IMM GRANULOCYTE # 0.0 10^3u 0-5 CMP - 06/06/15 00:00 ALB 4.0 G/DL 3.5-5 ALP 116 IU/L 25-72 ALT 56 IU/L 12-65 AST 29 IU/L 10-42 BCR 17.5 10-20 BUN 17 MG/DL 7-18 CA 9.1 MG/DL 8.4-10.2 CL 100 MEQ/L 98-107 CO2 26.9 MEQ/L 22-28 CREA 0.97 MG/DL 0.6-1.0 EGFR 61 eGFR >=60 GLU 150 MG/DL 70-105 K 3.6 MEQ/L 3.5-5.1 NA 139 MEQ/L 134-145 OSMSC 281.9 MOSML 280-300 TBIL 0.4 MG/DL 0.1-1.0 TP 7.4 G/DL 6.0-8.3 Albumin/Globulin Ratio 1.2 0-8 Anion Gap 12.1 8-16 LACTIC ACID - 06/06/15 00:00 LA 2.0 MMOLL 0.4-2.0 UA - 06/07/15 00:00 PH 5.5 4.5-8.0 SG 1.020 1.003-1.035 UABILI NEGATIVE UABLD NEGATIVE UACOLOR YEL UAGLU NEGATIVE UAKET NEGATIVE UALEUK TRACE UANIT NEGATIVE UAURO 0.2 0-0.2 UCX YES CLARITY CL PROTEIN NEGATIVE UA WBC R510 UA RBC R05 SQUAMOUS EPITHELIAL CELLS 1+ BACTERIA 4+ Encounters ACCT No. Visit Discharge Status Pt. Type Provider Facility Loc./Unit Complaint Date/Time [id number] 06/23/2015 06/23/2015 DIS Outpatient Jeffy INFANTE RAD 09:19:00 09:19:00 [facility] [id number] 06/06/2015 06/07/2015 DIS Inpatient VICKIEJeffy OBS 22:58:00 10:00:00 [facility] [id number] 12/29/2014 12/29/2014 DIS Inpatient ALANAJeffy OPS 06:20:00 11:10:00 [facility] [id number] 12/22/2014 12/22/2014 CLS Outpatient KARLIE Krishnano OPS 00:00:00 23:59:59 , [facility] [id number] 05/20/2014 05/20/2014 DIS Emergency DENICEONURAriellao EMR 20:47:00 21:35:00 STUART Pineda [facility] [id number] 05/20/2014 05/20/2014 DIS Inpatient Ariella ARAGONo OPS 07:55:00 12:30:00 [facility] [id number] 05/12/2014 05/12/2014 DIS Outpatient Ariella ARAGONo ORTHO 14:28:00 14:28:00 [facility] [id number] 05/04/2014 05/04/2014 DIS Outpatient Jeffy ALVARADO RAD 07:16:00 07:16:00 STEPHAN [facility] [id number] 04/16/2014 04/16/2014 DIS Emergency MURTAZAJeffy EMR 09:15:00 12:20:00 LARRY Hayes [facility] [id number] 04/06/2014 04/06/2014 DIS Outpatient Jeffy [facility]AD[id number]/2014 01/31/2014 CLS Outpatient Jeffy OAKLEY RAD 00:00:00 23:59:59 BERNADINE Pineda [facility] [id number] 04/03/2015 Document 79 00:00:00 Registrati on [id number] 12/17/2014 Document 05:43:22 Registrati on [id number] 04/03/2014 Document 73 00:00:00 Registrati on [id number] 04/03/2014 Document 97 00:00:00 Registrati on
--- NOTE | 2016-11-20 14:23 | XRay Report ---
INDICATION: LE edema PROCEDURE: CHEST 2-VIEWS UPRIGHT (PA & LAT) Encounter: Initial COMPARISON: None FINDINGS: No consolidative pneumonia. Slight increase in pulmonary vascular markings in the bases. There is no pleural effusion or pneumothorax. The heart size and mediastinal contours are within normal limits. There is no significant skeletal abnormality. IMPRESSION: Mild pulmonary vascular congestion. No focal pneumonia. .
[2016-11-20] MEDS ORDERED: FUROSEMIDE 100 MG/10 ML INJECTION IVP ONE (14:31)
[2016-11-20] MEDS ORDERED: MORPHINE SULFATE 2 MG SYRINGE IVP ONE (14:50)
[2016-11-20] MEDS ORDERED: IOHEXOL 300mg/ml 100ml INJECTION ONE (15:02)
[2016-11-20] MEDS ORDERED: SALINE FLUSH 10ml SYRINGE ONE (15:02)
[2016-11-20] MEDS ORDERED: NS 100 ML ONE (15:02)
--- NOTE | 2016-11-20 15:26 | CT Scan Report ---
Indication: Left flank pain PROCEDURE: CT abdomen pelvis w con: Encounter: Initial Comparison: None Technique: Axial CT images were performed through the abdomen and pelvis after the administration of intravenous contrast. Coronal and sagittal two-dimensional reformats. Automated Exposure Control and Iterative Reconstruction dose reducing techniques were utilized. Contrast: Omnipaque 300 100 mL Findings: Mild atelectasis or scarring in the lower lobes. Attenuation artifact due to patient body habitus. The liver appears normal. No enhancing mass or bile duct dilatation. The gallbladder is unremarkable. The spleen, pancreas and adrenal glands are normal. The kidneys are normal. No abdominal or pelvic adenopathy. Bladder is normal. Uterus and ovaries appear normal. There is some air present within the vagina. No free fluid. No evidence of colonic diverticulosis or acute diverticulitis. No bowel obstruction normal. Impression: No acute disease process seen in the abdomen or pelvis. .
[2016-11-20] MEDS ORDERED: TRAMADOL 50 MG TABLET PO PRN (15:54)
[2016-11-20] MEDS ORDERED: ZOLPIDEM 10 MG TABLET PO PRN (15:54)
[2016-11-20] MEDS ORDERED: ACETAMINOPHEN 500 MG TABLET PO PRN (15:54)
--- NOTE | 2016-11-20 16:19 | History & Physical Report ---
<Jewell Maradiaga V - Last Filed: 11/20/16 16:09> History of Present Illness Date: 11/20/16 Chief complaint: Bilateral lower ext swelling, shortness of breath HPI: Patient is a 50-year-old female who presented to the emergency room today for evaluation of bilateral lower extremity swelling, shortness of breath with back pain. She resides in [facility] and is currently in [facility]. Patient reports that she routinely takes 40 milligrams of Lasix daily for peripheral edema. She had an increase in edema and Lasix dose was increased to 80 milligrams daily starting 11/14/16. She reports then on Friday11/18/16. Lasix was increased again to 100 milligrams daily. Given ongoing lower extremity edema. Today she contacted her primary care provider in [place], [place]. Once again reporting continued edema and was instructed to come to the emergency room for acute evaluation. While in the emergency room, laboratory studies, x- ray and CT scan were obtained. CBC was found to be unremarkable. Electrolytes were normal with a sodium of 142, potassium 3.6, BUN 17, creatinine 0.8. Glucose is 132. Lipase is normal at 114, BNP is 164. Chest x-ray did reveal mild pulmonary vascular congestion without focal pneumonia. CT scan of the abdomen revealed no acute abdominal or pelvis abnormality. Patient is afebrile, vital signs normal. She was given IV Lasix 80 milligrams for more aggressive diuresis seen along with morphine 2 milligram's IV for back pain. Given the concern for continued peripheral edema after aggressive outpatient diuresis seen. The hospitalist services were contacted and accepted patient for outpatient admission for further evaluation and treatment. It is expected that her stay will be less than 2 overnights. Review of Systems All systems: reviewed and no additional remarkable complaints except as stated - Constitutional Constitutional: Present: fatigue - Cardiovascular Cardiovascular: Present: edema (bilateral lower extremities) Vascular: Present: pedal edema. Absent: unilateral swelling - Respiratory Respiratory: Present: dyspnea - Genitourinary Genitourinary: Present: flank pain (left) [facility] Medical History Updates: Chronic peripheral edema. Hypertension. Hyperlipidemia. Type II diabetes. Anxiety. Insomnia. Depression. Urge incontinence. Obesity. Chronic back pain. CAD? Surgical History: Right knee surgery. tubal ligation. Bladder sling Family History: Family history is unknown as patient is adopted - Social History Smoking status: Former smoker (continues to smoke occasionally) Substance use type: does not use Alcohol intake frequency: holidays/special occasions only Housing: house Current residence: Apartment/Private Home Social history: Patient resides in [place], [place] Primary care provider-Marge Estevez APRN Medications Home Medications Medication Instructions Recorded Confirmed Type ALPRAZolam [Alprazolam Xr] 3 mg PO HS 11/20/16 11/20/16 History ARIPiprazole [Aripiprazole] 10 mg PO DAILY 11/20/16 11/20/16 History Acetaminophen [Tylenol] 1,000 mg PO Q4-6HR PRN 11/20/16 11/20/16 History Aspirin [Aspirin EC] 81 mg PO DAILY 11/20/16 11/20/16 History Atorvastatin Calcium [Atorvastatin 10 mg PO HS 11/20/16 11/20/16 History Calcium] Furosemide [Lasix] 100 mg PO DAILY 11/20/16 11/20/16 History Imipramine HCl [Imipramine HCl] 300 mg PO HS 11/20/16 11/20/16 History Metoprolol Tartrate [Lopressor] 25 mg PO BID 11/20/16 11/20/16 History Pioglitazone HCl [Pioglitazone HCl] 30 mg PO DAILY 11/20/16 11/20/16 History Tramadol [Ultram] 50 mg PO TID PRN 11/20/16 11/20/16 History Verapamil HCl [Verapamil ER] 240 mg PO BID 11/20/16 11/20/16 History Zolpidem [Ambien] 10 mg PO HS PRN 11/20/16 11/20/16 History Allergies Allergy/AdvReac Type Severity Reaction Status Date / Time midazolam [From Versed] AdvReac Difficulty Verified 11/20/16 13:09 Breathing Exam Vital Signs: Temperature 97.5 F 11/20/16 14:50 Pulse Rate 72 11/20/16 15:45 Respiratory Rate 16 11/20/16 14:45 Blood Pressure 118/60 11/20/16 15:21 Pulse Oximetry 96 11/20/16 15:45 Height: 1.57 m Weight: 118.6 kg - Constitutional Present: no acute distress, well nourished, well developed - Routine HEENT Exam Head: Present: normocephalic Eye: Present: EOMI, PERRL ENT: Present: mucous membranes moist, dentition normal - Routine Neck Exam Present: full ROM - Routine Respiratory Exam Present: CTA bilaterally. Absent: wheezes - Routine Cardiovascular Exam Present: RRR, S1, S2, no murmur. Absent: murmur - Routine Abdominal Exam Present: soft, normoactive bowel sounds, non distended. Absent: tenderness - Routine Extremities Exam Present: edema (trace bilateral lower extremity edema), normal capillary refill - Routine Back/Spine/Pelvis Exam Back/Spine: Present: full ROM Back image: 1 - Pain - Routine Skin Exam Present: intact, dry, warm - Routine Neurological Exam Present: alert, oriented X3, CN II-XII intact - Routine Psychiatric Exam Present: normal affect, normal thought process Results - Labs CBC & Chem 7: 11/20/16 13:24 11/20/16 13:24 Assessment and Plan Assessment and Plan: 11/20/16-admission Peripheral edema Bilateral lower extremity pain Diuresis- failed outpatient Dyspnea Type II diabetes. Hypertension. Hyperlipidemia. Depression, anxiety Urge incontinence. Obesity. Chronic back pain Questionable coronary artery disease Plan Will admit patient to outpatient observation under the care of the hospitalist services, Dr. Malik. She was given Lasix 80 mg IV Lasix in the ER for more aggressive diuresising Will given Potassium 40 Meq x1 now For further cardiology workup. Will obtain an echocardiogram and twelve-lead EKG. Obtain Urine HCG, TSH, D-dimer for laboratory completeness Will continue with remaining home medications including Abilify, Lipitor, Metoprolol, Xanax, Tramadol, Verapamil Will monitor accu checks and place Actos on hold on admission. SCDs to bilateral lower extremity for DVT prophylaxis Will recheck CBC and BMP tomorrow morning to follow blood counts, renal function and electrolytes Will discuss further plan of care and orders with attending, Dr Malik. At time of discharge medical care will return to her primary care provider in [facility] Course Summary Disclaimer: The visit summary below is not to be considered part of the above Progress Note. Hospital Course: 11/20/16 16:40 11/20/16-admission Peripheral edema Bilateral lower extremity pain Diuresis- failed outpatient Dyspnea Type II diabetes. Hypertension. Hyperlipidemia. Depression, anxiety Urge incontinence. Obesity. Chronic back pain Questionable coronary artery disease Plan Will admit patient to outpatient observation under the care of the hospitalist services, Dr. Malik. She was given Lasix 80 mg IV Lasix in the ER for more aggressive diuresising Will given Potassium 40 Meq x1 now For further cardiology workup. Will obtain an echocardiogram and twelve-lead EKG. Obtain Urine HCG, TSH, D-dimer for laboratory completeness Will continue with remaining home medications including Abilify, Lipitor, Metoprolol, Xanax, Tramadol, Verapamil Will monitor accu checks and place Actos on hold on admission. SCDs to bilateral lower extremity for DVT prophylaxis Will recheck CBC and BMP tomorrow morning to follow blood counts, renal function and electrolytes Will discuss further plan of care and orders with attending, Dr Malik. At time of discharge medical care will return to her primary care provider in [place], [place] <Ben Malik - Last Filed: 11/20/16 17:41> History of Present Illness Date: 11/20/16 [facility] Patient Stated Medical History Cerebrovascular Accident Yes: 1.5 YEARS AGO Migraine Yes: IMATREX Hypertension Yes Diabetes Mellitus Type 2 Yes Anesthesia Reactions Yes: VERSED Depression Yes: MEDICATION Exam Vital Signs: Temperature 97.5 F 11/20/16 16:25 Pulse Rate 71 11/20/16 16:25 Respiratory Rate 18 11/20/16 16:25 Blood Pressure 131/60 11/20/16 16:25 Pulse Oximetry 96 11/20/16 16:25 Oxygen Delivery Method Room Air Height: 5 ft 2 in Weight: 117.9 kg Results - Labs CBC & Chem 7: 11/20/16 13:24 11/20/16 13:24 Assessment and Plan DVT Prophylaxis: SCD's GI Prophylaxis: Protonix Resuscitation Status: Full Code Assessment and Plan: Agree with above A/P. Worsening anasarca for the past few weeks. Always feels "bloated". No new medications or recent illnesses. Will check TTE for LV fxn and also possible cor pulmonale given her noncompliance for her MYRNA. Will also DC actos. Hospital Course Summary Disclaimer: The visit summary below is not to be considered part of the above Progress Note.
[2016-11-20 16:52] VITALS: BMI 47.5
[2016-11-20] MEDS: ALPRAZolam 1 MG TABLET PO SCH (21:48)
[2016-11-20] MEDS: Verapamil SR 120 MG TABLET (12Hr) PO SCH (21:48)
[2016-11-20] MEDS ORDERED: IMIPRAMINE 25 MG TABLET PO SCH (22:00)
[2016-11-20] MEDS ORDERED: ATORVASTATIN 10 MG TABLET PO SCH (22:00)
[2016-11-21 07:56] VITALS: RESP 20; TEMP 96
[2016-11-21] MEDS ORDERED: ASPIRIN *EC* 81 MG TABLET PO SCH (09:00)
[2016-11-21] MEDS ORDERED: ARIPiprazole 10 MG TABLET PO SCH (09:00)
[2016-11-21] MEDS: ALPRAZolam 1 MG TABLET PO SCH (09:36)
[2016-11-21] MEDS: Verapamil SR 120 MG TABLET (12Hr) PO SCH (11:56)
[2016-11-21 14:54] VITALS: PULSE 80; O2SAT 95
--- NOTE | 2016-11-21 15:15 | Discharge Instructions ---
Discharge Plan - Med Rec/Dispo Referrals/Follow Up: Erica Becerril APRN [Other] (Please see PCP in 1 week) Prescriptions: New Furosemide [Lasix] 1 tab PO DAILY #30 tab Metformin [Glucophage] 1 tab PO BIDWM #30 tab Continue Zolpidem [Ambien] 10 mg PO HS PRN PRN Reason: Sleep Tramadol [Ultram] 50 mg PO TID PRN PRN Reason: Pain Aspirin [Aspirin EC] 81 mg PO DAILY Metoprolol Tartrate [Lopressor] 25 mg PO BID Atorvastatin Calcium 10 mg PO HS ALPRAZolam [Alprazolam Xr] 3 mg PO HS ARIPiprazole [Aripiprazole] 10 mg PO DAILY Acetaminophen [Tylenol] 1,000 mg PO Q4-6HR PRN PRN Reason: Pain Verapamil HCl [Verapamil ER] 240 mg PO BID Imipramine HCl 300 mg PO HS Discontinued Pioglitazone HCl [Pioglitazone HCl] 30 mg PO DAILY Furosemide [Lasix] 100 mg PO DAILY #30 Furosemide [Lasix] 100 mg PO DAILY #30 Discharge Instructions/Outpatient Orders: Final Provider Discharge Instructions Location: Determined By Patient - Disposition 01 Discharged Home, Self-Care
[2016-11-21 15:24] VITALS: BP 128/69
--- NOTE | 2016-11-21 15:33 | Discharge Summary ---
<Jewell Maradiaga V - Last Filed: 11/21/16 15:27> Discharge Information Date of admission: 11/20/16 16:01 Anticipated date of discharge: 11/21/16 Attending Physician: Analia Ramirez MD Primary care physician: Marge Estevez APRN in [place], [place] - Procedures Procedures: None - Laboratory Labs: 11/21/16 04:43 11/21/16 04:43 - Microbiology None - Radiology Radiology: 11/20/16-chest x-ray revealing mild pulmonary congestion. No focal pneumonia 11/20/16-CT scan of the abdomen and pelvis revealed no acute process 11/20/1627-Opirizcqvuhxfk-otetwem cardiology read - Pathology None History of Present Illness HPI: Patient is a 50-year-old female who presented to the emergency room today for evaluation of bilateral lower extremity swelling, shortness of breath with back pain. She resides in [facility] and is currently in [facility]. Patient reports that she routinely takes 40 milligrams of Lasix daily for peripheral edema. She had an increase in edema and Lasix dose was increased to 80 milligrams daily starting 11/14/16. She reports then on Friday11/18/16. Lasix was increased again to 100 milligrams daily. Given ongoing lower extremity edema. Today she contacted her primary care provider in [place], [place]. Once again reporting continued edema and was instructed to come to the emergency room for acute evaluation. While in the emergency room, laboratory studies, x- ray and CT scan were obtained. CBC was found to be unremarkable. Electrolytes were normal with a sodium of 142, potassium 3.6, BUN 17, creatinine 0.8. Glucose is 132. Lipase is normal at 114, BNP is 164. Chest x-ray did reveal mild pulmonary vascular congestion without focal pneumonia. CT scan of the abdomen revealed no acute abdominal or pelvis abnormality. Patient is afebrile, vital signs normal. She was given IV Lasix 80 milligrams for more aggressive diuresis seen along with morphine 2 milligram's IV for back pain. Given the concern for continued peripheral edema after aggressive outpatient diuresis seen. The hospitalist services were contacted and accepted patient for outpatient admission for further evaluation and treatment. It is expected that her stay will be less than 2 overnights. Objective Vital signs: Temperature 96 F L 11/21/16 07:55 Pulse Rate 80 11/21/16 14:53 Respiratory Rate 20 11/21/16 07:55 Blood Pressure 128/69 11/21/16 15:00 Pulse Oximetry 95 11/21/16 14:53 Oxygen Delivery Method Room Air Weight: 117.4 kg - Constitutional Present: no acute distress, well nourished, well developed - Routine HEENT Exam Eye: Present: EOMI ENT: Present: mucous membranes moist, dentition normal - Routine Respiratory Exam Present: CTA bilaterally. Absent: wheezes - Routine Cardiovascular Exam Present: RRR, S1, S2. Absent: murmur - Routine Abdominal Exam Present: soft, normoactive bowel sounds, non distended. Absent: tenderness - Routine Extremities Exam Present: no edema, full ROM, normal capillary refill - Routine Back/Spine/Pelvis Exam Back/Spine: Present: full ROM - Routine Skin Exam Present: intact, dry, warm - Routine Neurological Exam Present: alert, oriented X3, CN II-XII intact - Routine Lymphatic Exam Lymphatic: Absent: adenopathy - Routine Psychiatric Exam Present: normal affect Hospital Course This is a general summary of the patient's hospital course. For more details refer to the complete medical record. Hospital course: 11/20/16 16:40 11/20/16-admission Peripheral edema Bilateral lower extremity pain Diuresis- failed outpatient Dyspnea Type II diabetes. Hypertension. Hyperlipidemia. Depression, anxiety Urge incontinence. Obesity. Chronic back pain Questionable coronary artery disease Plan Will admit patient to outpatient observation under the care of the hospitalist services, Dr. Malik. She was given Lasix 80 mg IV Lasix in the ER for more aggressive diuresising Will given Potassium 40 Meq x1 now For further cardiology workup. Will obtain an echocardiogram and twelve-lead EKG. Obtain Urine HCG, TSH, D-dimer for laboratory completeness Will continue with remaining home medications including Abilify, Lipitor, Metoprolol, Xanax, Tramadol, Verapamil Will monitor accu checks and place Actos on hold on admission. SCDs to bilateral lower extremity for DVT prophylaxis Will recheck CBC and BMP tomorrow morning to follow blood counts, renal function and electrolytes Will discuss further plan of care and orders with attending, Dr Malik. 11/21/16- Discharge Vita is seen and examined today. Overall she is feeling much better. Her peripheral edema has greatly improved as she notes that she can see her, "ankle bones". She did receive a one-time dose of Lasix 80 milligrams IV on admission yesterday. Intake and output has been monitored. She is noted to be down 1 kilogram. She will be discharged home on her usual Lasix dose of 40 milligrams daily. She did have an echocardiogram yesterday. That will be read by cardiology later this evening. Overall blood sugars were well-controlled during her hospital stay. Her Actos was placed on hold as it was thought that it may influence her peripheral edema. Discussed ongoing diabetes control with patient. She opted to start metformin twice a day. Instructed her to monitor her Accu-Cheks carefully. She is planning to follow with her primary care provider in [place], [place], Marge Gonsalez. Discharge Plan - Med Rec/Dispo Referrals/Follow Up: Erica Becerril APRN [Other] - 1 Week (Please see Marge Becerril APRN on November 27 at 10:45am.) Prescriptions: New Furosemide [Lasix] 1 tab PO DAILY #30 tab Metformin [Glucophage] 1 tab PO BIDWM #30 tab Continue Zolpidem [Ambien] 10 mg PO HS PRN PRN Reason: Sleep Tramadol [Ultram] 50 mg PO TID PRN PRN Reason: Pain Aspirin [Aspirin EC] 81 mg PO DAILY Metoprolol Tartrate [Lopressor] 25 mg PO BID Atorvastatin Calcium 10 mg PO HS ALPRAZolam [Alprazolam Xr] 3 mg PO HS ARIPiprazole [Aripiprazole] 10 mg PO DAILY Acetaminophen [Tylenol] 1,000 mg PO Q4-6HR PRN PRN Reason: Pain Verapamil HCl [Verapamil ER] 240 mg PO BID Imipramine HCl 300 mg PO HS Discontinued Pioglitazone HCl [Pioglitazone HCl] 30 mg PO DAILY Furosemide [Lasix] 100 mg PO DAILY #30 Furosemide [Lasix] 100 mg PO DAILY #30 Discharge Instructions/Outpatient Orders: Final Provider Discharge Instructions Location: Determined By Patient - Disposition 01 Discharged Home, Self-Care <Anlaia Ramirez - Last Filed: 11/21/16 22:46> Discharge Information Date of admission: 11/20/16 16:01 Attending Physician: Analia Ramirez MD - Discharge Diagnosis (1) Edema Qualifiers: Edema type: unspecified Qualified Code(s): R60.9 - Edema, unspecified Status: Acute - Procedures Procedures: Echocardiogram obtained 11/20-formal report pending at discharge however per preliminary verbal report ejection fraction is 65%, mild pulmonary hypertension with PA pressure of 37, no significant valvular disease. - Laboratory Labs: 11/21/16 04:43 11/21/16 04:43 Objective Vital signs: Temperature 96 F L 11/21/16 07:55 Pulse Rate 80 11/21/16 14:53 Respiratory Rate 20 11/21/16 07:55 Blood Pressure 128/69 11/21/16 15:00 Pulse Oximetry 95 11/21/16 14:53 Oxygen Delivery Method Room Air Hospital Course This is a general summary of the patient's hospital course. For more details refer to the complete medical record. Hospital course: I have independently evaluated and examined this patient. I reviewed the chart, the patient's history, and the REVIEW CONSULTANT's documented findings as above. We discussed and formulated the assessment and plan as above with additions as below: Vita reported significant improvement in edema overnight and that she didn't know she had ankles any longer. She denied dyspnea and ambulatory oximetry revealed no desaturation. Weight is essentially unchanged from admission and diagnosed do not reflect significant fluid loss. Examination however demonstrates only a hint of edema at the left ankle and no right lower extremity edema. Respirations are nonlabored with good airflow and clear breath sounds. I suspect edema is multifactorial and strongly recommended that Vita resume use of CPAP previously prescribed. Pulmonary pressures are slightly elevated. Additionally Actos will be discontinued with metformin to be used as an alternate agent to determine if medication is playing a role in edema. Patient to follow-up with her managing provider in the near future. Elevation of legs as much as possible recommended.
--- NOTE | 2016-11-21 21:44 | Echocardiogram ---
DATE OF PROCEDURE November 20, 2016 This is a two-dimensional echo with spectral Doppler, color-flow and M-mode. It was obtained in a patient with congestive heart failure. Left atrium is dilated. Left ventricular end-diastolic dimension is normal. Left ventricular wall thickness is mildly increased. LV systolic function is normal with ejection fraction of 65%. Right atrium is normal. Right ventricle is normal. Aortic root dimension is normal. Mitral valve is morphologically normal with trace of mitral regurgitation. Aortic valve appears to be normal. Tricuspid valve shows mild tricuspid regurgitation with mild pulmonary hypertension with estimated pulmonary artery systolic pressure of 37. Pulmonary valve shows no pulmonary insufficiency. There is no pericardial effusion. IMPRESSION 1. Normal LV systolic function with ejection fraction of 65%. 2. Mild left ventricular hypertrophy. 3. Mild left atrial dilation. 4. Trace of mitral regurgitation. 5. Mild tricuspid regurgitation with mild pulmonary hypertension with estimated pulmonary artery systolic pressure of 37. MTDD
== END 2016-11-21 16:30 | disposition home or self-care (01) ==
LOC: ED 12:42 → MED 12:42
PROVIDERS: ADMIT Internal Medicine; ATTEND Internal Medicine